=== PATIENT | female | born 1975 | race Caucasian/White ===

== ENCOUNTER 2022-02-22 15:17 | Outpatient (CLI) | payer OTHER, SELFPAY ==
--- NOTE | 2022-02-22 15:30 | CRLHL7_ITS ---
For Patients: As a result of the Century Cures Act, medical imaging exams and procedure reports are released immediately into your electronic medical record. You may view this report before your referring provider. If you have questions, please contact your health care provider. DXA BONE MINERAL DENSITY STUDY Current height (in): 66. Weight (lb): 210. Menopause age: N/A. Ethnicity: White. 1. Have you had a previous hip or vertebral fracture? No. 2. Have you had any fractures during your adult life which did not result from significant trauma (e.g., auto accident)? No. 3. Did either of your parents have a hip fracture? No. 4. Do you smoke? No. 5. Have you ever taken Glucocorticoids? No. 6. Do you have rheumatoid arthritis? No. 7. Do you have secondary osteoporosis? No. 8. Do you drink 3 or more alcoholic drinks per day? No. 9. Are you being treated for osteoporosis? No. 10. Have you ever taken any of the following medications: Actonel, Evista, Fosamax, Miacalcin, Reclast, Boniva, Forteo, HRT (i.e. estrogen/hormone therapy), Protelos, Prolia, Vitamin D, Calcium, other ??? please specify. ANSWER: Yes, vitamin D and calcium. 11. Do you have any of the following medical conditions: Anorexia or bulimia, asthma or emphysema, end stage renal disease, hyperparathyroidism, any seizure disorders, cancer, inflammatory bowel diseases, hysterectomy, other ??? please specify. ANSWER: Yes, cancer and inflammatory bowel diseases. 12. What was your maximum height (inches)? 67. 13. Do you perform weight bearing exercise regularly? Yes. 14. Do you regularly consume dairy products? Yes. 15. Do you drink caffeinated beverages? Yes. 16. At what age did your period start? 18. 17. Are you premenopausal? Yes. 18. How many full term pregnancies have you had? 0. 19. Have you ever missed your period for more than 6 months in a row (not including or menopause)? No. TECHNIQUE: Bone mineral density study was performed using the HW. FINDINGS: The results of the study expressed as bone mineral density (BMD) are as follows: Lumbar spine L1 to L4: BMD: 1.052 g/cm2. Z-score: 0.5 Neck Left: BMD: 0.663 g/cm2. Z-score: -1.3 Right: BMD: 0.624 g/cm2. Z-score: -1.6 Total Left: BMD: 0.861 g/cm2. Z-score: -0.4 Right: BMD: 0.812 g/cm2. Z-score: -0.8 IMPRESSION: Normal findings with no increased fracture risk identified. The Z-score is within the expected range for age (Z-score above -2.0). (The World Health Organization [WHO] criteria do not apply to this patient). This patient does not fit the criteria to use the database of postmenopausal women. That database is useful for perimenopausal and postmenopausal women, and men 50 years old and older. Therefore, the T-scores are not useful to evaluate this patient and only the Z-scores are used. 10-year Fracture Risk Major Osteoporotic Fracture: 3.2%. Hip Fracture: 0.5%. Reported Risk Factors: [place] () Neck BMD =0.624, BMI = 33.9 Kamala Rincon M.D. Diagnostic/Breast Radiologist [email or web address] [email or web address]/mendez simms/Dictated by: Kamala Rincon MD @ 02/23/2022 4:50:00 PM (Electronically Signed)
== END 2022-02-22 15:18 | disposition home or self-care (01) ==
LOC: RAD 15:18
PROVIDERS: PCP Family Medicine; Visit Provider Internal Medicine Hematology & Oncology
DX: C50.912 Malignant neoplasm of unspecified site of left female breast (principal)
CPT/HCPCS: 77080

== ENCOUNTER 2022-02-28 16:10 | Outpatient (CLI) | payer OTHER, SELFPAY ==
[2022-02-28 20:05] LABS: Chloride* 101 mmol/L (96-114); Potassium* 3.9 mmol/L (3.6-5.1); Sodium* 137 mmol/L (135-149)
[2022-02-28 20:08] LABS: Blood Urea Nitrogen* 18 mg/dL (5-24); Carbon Dioxide* 28 mmol/L (20-32); Creatinine* 0.7 mg/dL (0.5-1.5); Estimated Glomerular Filt Rate 109 ml/min; Glucose* 88 mg/dL (60-115)
[2022-02-28 20:09] LABS: Calcium* 9.7 mg/dL (8.4-10.6)
== END 2022-02-28 16:11 | disposition home or self-care (01) ==
LOC: NFLDREF 16:11
PROVIDERS: PCP Family Medicine; Visit Provider Family Medicine
DX: Z01.818 Encounter for other preprocedural examination (principal); R60.0 Localized edema; Z79.899 Other long term (current) drug therapy
CPT/HCPCS: 80048; 99212; 99214

== ENCOUNTER 2022-03-20 15:32 | Outpatient (CLI) | payer OTHER, SELFPAY ==
--- OUTSIDE RECORDS SUMMARY | 2022-03-20 16:06 | XMS_ITS | Encounter Summary ---
:1975 Author Organization [employer] Address [address] [place] [address] Care Team Providers Name Role Phone Sheeba Castillo APRN, CNP Primary Care Provider [phone] Reason for Visit Reason Comments Infusion Encounter Details Date Type Department Care Team Description 01/13/2022 [facility] MD Griselda colitis with rectal [id number] [address] [place] (Primary Dx) [place] [address] [phone] Social History Tobacco Use Types Packs/Day Years Used Date Smoking Tobacco: Former Cigarettes 0.3 15 Quit : 04/25/2015 Smokeless Tobacco: Never Alcohol Use Standard Drinks/Week Comments Yes 1 (1 standard drink = 0.6 oz pure alcoho l) 1-3 drinks a week Alcohol Habits Answer Date Recorded How often do you have a drink containing alcohol? Not asked How many drinks containing alcohol do you have on a Not aske d typical day when you are drinking? How often do you have six or more drinks on one Not asked occasion? 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 norethindrone-eth Take 1 Tablet by 112 Tablet 3 05/21/2020 estradiol (PIRMELLA mouth daily. ) 1-35 MG-MCG CONTINOUSLY tabletIndications: Well adult exam triamterene-hydrochlorot Take 1 Tablet by 90 Tablet 3 03/15 hiazide (MAXZIDE-25) mouth daily. 37.5-25 MG tabletIndications: Essential hypertension (HRC) busPIRone (BUSPAR) 7.5 Take 1 Tablet by 120 Tablet 3 020 03/10/2022 MG tablet mouth two times a day. OK to double dose in 2 weeks if needed. cholestyramine MIX 4 GRAMS IN 4-8 378 g 0 01/14/2020 (QUESTRAN) 4 GM/DOSE OUNCESOF FLUID AND powder DRINK ONCE DAILY. MAY INCREASE TO TWICE DAILY IF NOT IMPROVING. SEPERATE AT LEAST 2 HOURS FROM OTHER MEDICATIONS. hyoscyamine (LEVSIN/SL) Place 2 Tablets 60 Tablet 2 07/14/ 022 03/14/2022 0.125 MG sublingual under tongue every 4 tabletIndications: hours as needed for Irritable bowel Cramping. syndrome, unspecified type documented as of this encounter Progress Notes Dahiana Ornelas RN - 01/13/2022 8:30 AM CDT Dx: Ulcerative Colitis Provider: Dr Bojorquez Is this the first dose: No History of previous infusion reactions? No Premedications: None Patient arrived for Entyvio infusion. Vital signs stable. No signs of infection. Tolerated infusion well. Discharged in stable condition. Will return to clinic for next infusion as scheduled in 8 weeks. Dahiana Ornelas RN 9:23 AM 01/13/2022 documented in this encounter Plan of Treatment Upcoming Encounters Date Type Specialty Care Team Description 05/05/2022 Appointment Chemo Therapy/Infusion Services 09/15/2022 Telemedicine Gastroenterology Eusebio Haines MD [address] [place], [place] [id number] (Wo rk) documented as of this encounter Visit Diagnoses Diagnosis Other ulcerative colitis with rectal ble eding (HRC) - Primary documented in this encounter Administered Medications Inactive Administered Medications - up to 3 most recent administrations Medication Order MAR Action Action Date Dose Rate Site sodium chloride 0.9% injection Given 01/13/2022 9:18 AM CDT 10 m L 10-60 mL 10-60 mL, Intravenous, PRN BEFORE&AFTER MEDICATIONS OR LAB DRAW, Line Patency, Starting on Sun01/13/22 at 0830, Until Sun01/13/22 at 1123, For 1 day Given 01/13/2022 8:32 AM CDT 10 mL vedolizumab (Entyvio) 300 mg in sodium Started 01/13/2022 8:41 AM CDT 300 mg chloride 0.9 % 250 mL infusion 300 mg, Intravenous, Administer over 30 Minutes, ONCE, On Sun01/13/22 at 0915, For 1 dose, BIOTHERAPY - Must be given by chemotherapy/biotherapy certified documented in this encounter Care Teams Retail Account Manager Relationship Specialty Start Date End Date Sheeba Castillo, HOG GRADER, BOOM STICK WORKER PCP - General Nurse Practitioner 07/20/16 [address] [address] [place] [phone] (work) documented as of this encounter
--- OUTSIDE RECORDS SUMMARY | 2022-03-20 16:06 | XMS_ITS | Encounter Summary ---
:1975 Author Organization [employer] Address [address] [place] [address] Care Team Providers Name Role Phone Sheeba Castillo APRN, DRY MIXER Primary Care Provider [phone] Reason for Visit Reason Onset Date Comments Refill 03/14/2022 Encounter Details Date Type Department Care Team Description 03/14/2022 Refill [facility] [address] Sravan Haines MD Refill Gastroenterology [address] 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 documented in this encounter Plan of Treatment Upcoming Encounters Date Type Specialty Care Team Description 05/05/2022 Appointment Chemo Therapy/Infusion Services 09/15/2022 Telemedicine Gastroenterology Eusebio Haines MD [address] [place] [address] (Wo rk) documented as of this encounter Visit Diagnoses Diagnosis Irritable bowel syndrome, unspecified ty pe documented in this encounter Care Teams Special Education Itinerant Teacher Relationship Specialty Start Date End Date Sheeba Castillo APRN, DRY MIXER PCP - General Nurse Practitioner 07/20/16 [address] [address] [place] [phone] documented as of this encounter
--- OUTSIDE RECORDS SUMMARY | 2022-03-20 16:06 | XMS_ITS | Encounter Summary ---
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 documented in this encounter Results LABORATORY REPORT (09/30/2021) Narrative This result has an attachment that is no t available. Interface Provider DUMMY/OTHER/AR documented in this encounter Visit Diagnoses Not on filedocumented in this encounter Care Teams Lead Mason Tender Relationship Specialty Start Date End Date Sheeba Castillo, HEALTH AND PHYSICAL EDUCATION TEACHER, DIRECTOR OF RECRUITMENT AND ADMISSIONS PCP - General Nurse Practitioner 07/20/16 [address] [address] [place] [phone] documented as of this encounter
--- OUTSIDE RECORDS SUMMARY | 2022-03-20 16:06 | XMS_ITS | Encounter Summary ---
:1975 Author Organization [employer] Address [address] [place] [address] Care Team Providers Name Role Phone Sheeba Castillo APRN, CNP Primary Care Provider [phone] Reason for Visit Reason Comments Infusion Encounter Details Date Type Department Care Team Description 03/10/2022 [facility] [place] Other ulcer[facility] MD Griselda colitis with rectal [address] [address] [address] [place] (Primary Dx) [place] [phone] Social History Tobacco Use Types Packs/Day Years [...] at Date Recorded Female 05/09/2021 7: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 norethindrone-eth Take 1 Tablet by 112 Tablet 3 05/21/2020 estradiol (PIRMELLA 135) mouth daily. 1-35 MG-MCG CONTINOUSLY tabletIndications: Well adult exam triamterene-hydrochloroth Take 1 Tablet by 90 Tablet 3 02/24 iazide (MAXZIDE-25) mouth daily. 37.5-25 MG tabletIndications: Essential hypertension (HRC) vedolizumab (ENTYVIO) 300 Maintenance Entyvio 0 0 03/10/2022 MG SOLR infusions every 8 injectionIndications: weeks. 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 unspecified type documented as of this encounter Progress Notes Patricia Turcios RN - 03/10/2022 11:00 AM CDT Dx: Ulcerative rectosigmoiditis with rectal bleeding Provider: Dr. Haines Is this the first dose: no History of previous infusion reactions? no Premedications: no Patient arrived for Entyvio infusion. Vital signs stable. No signs of infection. Tolerated infusion well. Discharged in stable condition. Will return to clinic for next infusion as scheduled in 8 weeks . documented in this encounter Plan of Treatment Upcoming Encounters Date Type Specialty Care Team Description 05/05/2022 Appointment Chemo Therapy/Infusion Services 09/15/2022 Telemedicine Gastroenterology Eusebio Haines MD [address] [place], [place] [phone] (Wo rk) documented as of this encounter Visit Diagnoses Diagnosis Other ulcerative colitis with rectal ble eding (HRC) - Primary documented in this encounter Administered Medications Inactive Administered Medications - up to 3 most recent administrations Medication Order MAR Action Action Date Dose Rate Site sodium chloride 0.9% injection Given 03/10/2022 11:03 AM CDT 10 mL 10-60 mL 10-60 mL, Intravenous, PRN BEFORE&AFTER MEDICATIONS OR LAB DRAW, Line Patency, Starting on Sun03/10/22 at 1057, Until Sun03/10/22 at 1341, For 1 day vedolizumab (Entyvio) 300 mg in sodium Started 03/10/2022 11:03 AM CDT 300 mg chloride 0.9 % 250 mL infusion 300 mg, Intravenous, Administer over 30 Minutes, ONCE, On Sun03/10/22 at 1145, For 1 dose, BIOTHERAPY - Must be given by chemotherapy/biotherapy certified documented in this encounter Care Teams Digital Associate Media Director Relationship Specialty Start Date End Date Sheeba Castillo, NETWORK SECURITY ENGINEER, SERVICE STATION MANAGER PCP - General Nurse Practitioner 07/20/16 [address] [address] [place] [phone] documented as of this encounter
--- OUTSIDE RECORDS SUMMARY | 2022-03-20 16:06 | XMS_ITS | Encounter Summary ---
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 ([facility]); [place] [address] Long-term current use of peña olizumab [phone] Social History Tobacco Use Types Packs/Day Years [...] at Date Recorded Female 05/09/2021 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 due to drug therapy ([facility]) Long-term current use of vedolizumab VEDOLIZUMAB Routine 03/10/2022 10:42 Left sided colitis Resul ts for this QUANTITATION WITH AM CDT with rectal bleeding pr ocedure are in REFLEX TO ANTIBODIES ([facility]) the results Immunosuppression section. due to drug therapy ([facility]) Long-term current use of vedolizumab ALKALINE PHOSPHATASE Routine 03/10/2022 10:42 Left sided colit is Results for this ISOENZYMES AM CDT with rectal bleeding procedu re are in ([facility]) the results Immunosuppression section. due to drug therapy ([facility]) Long-term current use of vedolizumab CREATININE / GFR Routine 03/10/2022 10:42 Left sided colitis R esults for this AM CDT with rectal bleeding procedu re are in ([facility]) the results Immunosuppression section. due to drug therapy ([facility]) Long-term current use of vedolizumab HEMOGLOBIN, BLOOD Routine 03/10/2022 10:42 Left sided colitis Results for this AM CDT with rectal bleeding procedu re are in ([facility]) the results Immunosuppression section. due to drug therapy ([facility]) Long-term current use of vedolizumab WBC, BLOOD Routine 03/10/2022 10:42 Left sided colitis Resul ts for this AM CDT with rectal bleeding procedu re are in ([facility]) the results Immunosuppression section. due to drug therapy ([facility]) Long-term current use of vedolizumab C-REACTIVE PROTEIN Routine 03/10/2022 10:42 Left sided colitis Results for this AM CDT with rectal bleeding procedu re are in ([facility]) the results Immunosuppression section. due to drug therapy ([facility]) Long-term current use of vedolizumab ALT (SGPT) Routine 03/10/2022 10:42 Left sided colitis Resul ts for this AM CDT with rectal bleeding procedu re are in ([facility]) the results Immunosuppression section. due to drug therapy ([facility]) Long-term current use of vedolizumab BILIRUBIN, TOTAL Routine 03/10/2022 10:42 Left sided colitis R esults for this AM CDT with rectal bleeding procedu re are in ([facility]) the results Immunosuppression section. due to drug therapy ([facility]) Long-term current use of vedolizumab documented in this encounter Results Hepatitis A Antibody, IgG (03/10/2022 10:42 AM CDT) [facility] gist Method Time Signature Hepatitis A Negative Positive 03/10/2022 [facility] Antibody, IgG (Non (Reactive) 7:19 PM CDT LABORATORY Reactive) Specimen Anatomical Collection Method / Collection Time Recei peña Time (Source) Location / Volume Laterality Blood Venipuncture / 03/10/2022 10:42 2 Unknown AM CDT 10:42 AM CDT Narrative [facility] - 03/10/2022 7:19 P M CDT Hepatitis A IgG antibodies not detected, suggesting lack of immunity to Hepatitis A. Eusebio Haines MD LAB_1 Performing Organization Address City/State/ZIP Code Phon e Number [facility] [address] [place] [address] Creatinine / GFR (03/10/2022 10:42 AM CDT) athologist Signature Creatinine 0.70 0.55 - 03/10/2022 [facility] 1.02 mg/dL 12:18 PM CDT LABORATORY GFR, Estimated >60 >60 03/10/2022 [facility] mL/min/1.7 12:18 PM CDT LABORATORY 3m2 Specimen Anatomical Collection Method / Collection Time Recei peña Time (Source) Location / Volume Laterality Blood Venipuncture / 03/10/2022 10:42 2 Unknown AM CDT 10:42 AM CDT Eusebio Haines MD LAB_1 Performing Organization Address City/State/ZIP Code Phon e Number [facility] [address] [place] [address] (ABNORMAL) C-Reactive Protein (03/10/2022 10:42 AM CDT) athologist Signature C-Reactive 1.0 (H) 0.0 - 0.7 03/10/2022 [facility] Protein mg/dL 12:18 PM CDT LABORATORY Specimen Anatomical Collection Method / Collection Time Recei peña Time (Source) Location / Volume Laterality Blood Venipuncture / 03/10/2022 10:42 2 Unknown AM CDT 10:42 AM CDT Eusebio Haines MD LAB_1 Performing Organization Address [facility]/ZIP Code Phon e Number [facility] [address] [place], [place] [phone] WBC, Blood (03/10/2022 10:42 AM CDT) athologist Signature WBC 6.4 3.5 - 10.5 03/10/2022 [facility] x10(9)/L 10:48 AM CDT LABORATORY Specimen Anatomical Collection Method / Collection Time Recei peña Time (Source) Location / Volume Laterality Blood Venipuncture / 03/10/2022 10:42 2 Unknown AM CDT 10:42 AM CDT Eusebio Haines MD LAB_1 Performing Organization Address [facility]/ZIP Code Phon e [facility] [address] [place], [place] [phone] Hemoglobin (03/10/2022 10:42 AM CDT) athologist Signature Hemoglobin 13.9 12.0 - 15.5 03/10/2022 [facility] g/dL 10:48 AM CDT LABORATORY Specimen Anatomical Collection Method / Collection Time Recei peña Time (Source) Location / Volume Laterality Blood Venipuncture / 03/10/2022 10:42 2 Unknown AM CDT 10:42 AM CDT Eusebio Haines MD LAB_1 Performing Organization Address [facility]/ZIP Code [facility] [address] [place] [address] 5780 Vedolizumab Quantitation with Reflex to Antibodies (03/10/2022 10:42 AM CDT) athologist Signature Vedolizumab 19.7 mcg/mL 03/14/2022 [facility] Quantitation 2:15 PM CDT LAB Comment: For concentrations of vedolizumab less t palacio or equal to 15.0 mcg/mL, reflex testing for antibodi [id number] will be performed. REFERENCE VALUE------ Lower limit of quantitation = 2.0 mcg/mL ADDITIONAL INFORMATIO N This test was developed and its performa nce characteristics determined by [facility] in a manner co nsistent with CLIA requirements. This test has not been nicho ared or approved by the U.S. Food and Drug Administration. Test Performed by: [facility] [address] [place] [address] [address] Supervisor Public Health Nursing: Sergio Ashby M.D. Ph. D.; CLIA# [id number] Specimen Anatomical Collection Method / Collection Time Recei peña Time (Source) Location / Volume Laterality Blood Venipuncture / 03/10/2022 10:42 2 Unknown AM CDT 10:42 AM CDT Eusebio Haines MD LAB_1 Performing Organization Address City/[facility] Phon e Number [facility] [place] [address] Bilirubin, Total (03/10/2022 10:42 AM CDT) athologist Signature Bilirubin, 0.4 0.2 - 1.2 03/10/2022 [place] Total mg/dL 12:18 PM CDT LABORATORY Specimen Anatomical Collection Method / Collection Time Recei peña Time (Source) Location / Volume Laterality Blood Venipuncture / 03/10/2022 10:42 2 Unknown AM CDT 10:42 AM CDT Eusebio Haines MD LAB_1 Performing Organization Address City/State/ZIP Code Phon e Number [facility] [address] [place] [address] Alkaline Phosphatase Isoenzymes (03/10/2022 10:42 AM CDT) Patholo gist Method Time Signature Alkaline 70 40 - 120 03/14/2022 [facility] Phosphatase U/L 10:45 PM CDT LABORATORIES Alkaline 22 0 - 55 U/L 03/14/2022 [facility] Phosphatase, 10:45 PM CDT LABORATORIES Bone Alkaline 48 0 - 94 U/L 03/14/2022 [facility] Phosphatase, 10:45 PM CDT LABORATORIES Liver Comment: INTERPRETIVE INFORMATION: Alk-Phosphatas e Liver Calc Bone Specific Alkaline Phosphatase ([phone]) and 5'-nucleotidase ([id number]) may be useful in identifying d isorders of bone and liver, respectively. Alkaline Phosphatase, Other 0 U/L 03/14/2022 1 0:45 PM CDT [facility] Comment: Performed By: [employer] [address] [place] [address] Manager Federal: Jorge Matos MD, PhD Specimen Anatomical Collection Method / Collection Time Recei peña Time (Source) Location / Volume Laterality Blood Venipuncture / 03/10/2022 10:42 2 Unknown AM CDT 10:42 AM CDT Eusebio Haines MD LAB_1 Performing Organization Address City/[facility]/ZIP Code Phon e Number [email or web address] [address] [place], [place] [phone] ALT (SGPT) (03/10/2022 10:42 AM CDT) P athologist Signature ALT (SGPT) 21 0 - 55 U/L 03/10/2022 [facility] 12:18 PM CDT LABORATORY Specimen Anatomical Collection Method / Collection Time Recei peña Time (Source) Location / Volume Laterality Blood Venipuncture / 03/10/2022 10:42 2 Unknown AM CDT 10:42 AM CDT Eusebio Haines MD LAB_1 Performing Organization Address City/[facility]/ZIP Code Phon e Number [facility] [address] [place] [address] documented in this encounter Visit Diagnoses Diagnosis Left sided colitis with rectal bleeding ([facility]) Left sided ulcerative (chronic) colitis Immunosuppression due to drug therapy ([facility]) Long-term current use of vedolizumab documented in this encounter Care Teams Loss Prevention Lead Relationship Specialty Start Date End Date Sheeba Castillo APRN, THEATER EDUCATION TEACHER PCP - General Nurse Practitioner 07/20/16 [address] [place] [id number] documented as of this encounter
--- OUTSIDE RECORDS SUMMARY | 2022-03-20 16:06 | XMS_ITS | Clinical Summary ---
:1975 Author Organization [facility] Address [address] [place] [address] Care Team Providers Name Role Phone Sheeba Castillo APRN, CNP Primary Care Provider [phone] Source Comments You are receiving this document as you are listed as the primary care provider,follow-up provider, or the patient has been referred to you for consultation.This is in compliance with the Medicare and Medicaid EHR Incentive Program,which states Providers who transition their patient to another setting of careor provider of care or refers their patient to another provider of care shouldprovide summarycare record for each transition of care or referral. [facility] Allergies No known active allergies Medications Medication Sig Dispensed Refills Start End Status Date Date Multiple Vitamin Take 1 tablet 0 11/14/19 Active (MULTI-VITAMIN OR) by mouth daily 12 (every 24 hours). Calcium Carbonate Take by mouth. 0 02/15/20 Active Antacid 1000 MG Reported on 08/14/2016 triamterene-hydrochlo Take 1 Tablet 90 Tablet 3 03/15/20 Active rothiazide by mouth daily. 20 (MAXZIDE-25) 37.5-25 MG tabletIndications: Essential hypertension (HRC) norethindrone-eth Take 1 Tablet 112 Tablet 3 05/21/20 Active estradiol (PIRMELLA by mouth daily. 20 ) 1-35 MG-MCG CONTINOUSLY tabletIndications: Well adult exam dicyclomine (BENTYL) TAKE 1 TABLET 360 Tablet 2 06/09/20 Active 20 MG BY MOUTH 4 21 tabletIndications: TIMES DAILY Irritable bowel NEEDED syndrome, unspecified type, Chronic ulcerative proctitis with rectal bleeding (HRC) vedolizumab (ENTYVIO) Maintenance 0 03/10/20 Active 300 MG SOLR Entyvio 22 injectionIndications: infusions every Left sided colitis 8 weeks. 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 syndrome, unspecified type cholestyramine MIX 4 GRAMS IN 378 g 0 01/14/20 Discontinued (QUESTRAN) 4 GM/DOSE 4-8 OUNCESOF 20 022 powder FLUID AND DRINK ONCE DAILY. MAY INCREASE TO TWICE DAILY IF NOT IMPROVING. SEPERATE AT LEAST 2 HOURS FROM OTHER MEDICATIONS. busPIRone (BUSPAR) Take 1 Tablet 120 Tablet 3 04/08/20 Discontinued 7.5 MG tablet by mouth two 20 022 times a day. OK to double dose in 2 weeks if needed. hyoscyamine Place 2 Tablets 60 Tablet 2 07/14/19 Di scontinued (LEVSIN/SL) 0.125 MG under tongue 22 022 (*Med change OR sublingual every 4 hours same med OR tabletIndications: as needed for reorder, new Irritable bowel Cramping. dose /directions syndrome, unspecified ) type Active Problems Problem Noted Date Ulcerative rectosigmoiditis with rectal bleeding 04/30 Hematochezia 04/30/2019 Ulcerative colitis with rectal bleeding 07/25/2016 Overview: On lialda, cholestyramin, and dicyclomin e C. difficile colitis 07/25/2016 BCC (basal cell carcinoma), leg 08/11/2011 Overview: 07/09/2008: left upper thigh HTN (hypertension) 08/11/2011 Overweight 08/11/2011 Malignant melanoma of skin of trunk, except scrotum Overview: 07/09/2008, mid-abdomen ; Melanoma Trunk Resolved Problems Problem Noted Date Resolved Date JANNET (generalized anxiety disorder) 01/18/201511/17 Situational stress 01/18/2015 11/18/2015 Chronic headaches 08/11/2011 12/17/2017 Concussion 08/11/2011 12/17/2017 Overview: February 2008, thrown from horse. History of tobacco use 08/11/2011 12/17/2017 Hx of tonsillectomy 08/11/2011 12/14/2016 Female genital symptoms 12/19/2004 05/04/2006 Overview: LW Onset: ; Pelvic Pain Female Irritable bowel syndrome 11/29/2002 12/17/2017 Encounters Date Type Specialty Care Team Description 03/14/2022 Refill Gastroenterology Yancy, Refill Eusebio Lowe MD 03/10/2022 Lab Visit Laboratory Left sided coli tis with rectal bleeding (HRC); 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); Long-term curre nt use of vedolizumab 03/10/2022 Hospital Encounter Chemo Therapy/Infusion [facility] Other ulcerative Services p, colitis with re ctal [place], bleeding (HRC) (Primary MD Dx) 03/10/2022 Telemedicine Gastroenterology Yancy, Left sided colitis with rectal bleeding (HRC) (Primary Dx); Eusebio Lowe MD 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); Irritable bowel syndrome, unspecified type; Need for vaccin ation for pneumococcus; History of raquel st cancer; Long-term curre nt use of vedolizumab 01/13/2022 Hospital Encounter Chemo Therapy/Infusion [facility] Other ulcerative Services p, colitis with re ctal [place], bleeding (HRC) (Primary MD Dx) from Last 3 Months Immunizations Name Administration Dates Next Due Flu Vac Preserv Free (3+yrs) 03/04/2012, 03/10/2011, 010, 03/04/2009, 04/17/2008, 04/08/2008, 04/03/2007, 04/09/2006 H1n1 Laiv Medimmune 2-49 Yr 04/13/2009 (Intranasal) H1n1 Miv Sanofi 3+ Yr (Injected) 06/09/2013 HepB Adult (Engerix-B, 20+ yrs, 3 02/08/2006, 01/02/2002 dose series) HepB, Unspecified Formulation 08/09/2001 Influenza IIV4 (Quadrivalent) 0.5mL 03/31/2019, 03/22/2018, 03/21/2018, (91073) 03/26/2017, 03/23/2016, 03/24/2015, 03/23/2014 PCV13 (Prevnar) 05/09/2021 (Deferred: Patient Refused) PCV20 ([id number]) 03/10/2022 (Deferred: Patient Refused - Patient will complete at a later date) PPSV23 (Pneumovax) 05/09/2021 (Deferred: Patient Refused - Patient will do at another time.) TDAP (ADACEL) 07/04/2010 Td 11/30/2003 Zoster RZV (Shingrix) 03/14/2019 Family History Medical History Relation Name Comments Cancer, Prostate Maternal Grandfather Dementia Maternal Grandmother Amblyopia/Strabismus Negative Family History Blindness Negative Family History Cancer, Colon Negative Family History Cataract Negative Family History DVT/PE Negative Family History Diabetes Negative Family History Glaucoma Negative Family History Heart Disease Negative Family History Macular Degeneration Negative Family History Retinal Detachment Negative Family History Stroke Negative Family History Thyroid Disorder Negative Family History Relation Name Status Comments Father Alive Mother Alive Brother Alive Maternal Grandfather Maternal Grandmother Alive Paternal Grandfather Other biological unknown Paternal Grandmother Other biological unknown Social History Tobacco Use Types Packs/Day Years [...] at Date Recorded Female 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 Vital Signs Vital Sign Reading Time Taken Comments Blood Pressure 152/73 03/10/2022 10:51 AM CDT Pulse 90 03/10/2022 10:51 AM CDT Temperature 36.6 ??C (97.8 ??F) 03/10/2022 10:51 AM CDT Respiratory Rate 16 08/23/2020 11:41 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 Oxygen Saturation 98% 03/10/2022 10:51 AM CDT Inhaled Oxygen Concentration - - Weight 96.2 kg (212 lb) 01/13/2022 8:26 AM CDT Height 167.6 cm (5' 6) 08/23/2020 10:00 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 Body Mass Index 34.22 08/23/2020 10:00 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 Plan of Treatment Upcoming Encounters Date Type Specialty Care Team Description 05/05/2022 Appointment Chemo Therapy/Infusion Services 09/15/2022 Telemedicine Gastroenterology Eusebio Haines MD [address] [place], [place] [phone] (Wo rk) Health Maintenance Due Date Last Done Comments COVID-19 Vaccine (#1) 1975 Pneumococcal (1 - PCV) 1983 Zoster/Shingles (2 of 2) 05/09/2019 03/14/2019 Pap 12/17/2020 12/17/2017, 09/30/2014, 08/11/2011, Additional history exists Influenza (#1) 2022 03/23/2021, 03/31/2019, 03/22/2018, Additional history exists Adult Preventive Visit 03/15/2022 03/15/2020, 12/19/2018, 12/17/2017, Additional history exists Mammogram 05/25/2022 05/25/2021 (Completed), 01/15/2018 Colonoscopy 08/23/2025 08/23/2020, 09/22/2015 DTaP/Tdap/Td (3 - Tdap) 02/11/2031 02/11/2021, 07/04/2010, 11/30/2003 HepB Completed 02/08/2006, 01/02/2002, 08/09/2001 HIV Screening (Preventive Completed 03/24/2015 Services) Hep C Screening (Preventive Completed 03/24/2015 Services) HPV Vaccine Aged Out No longer eligib le based on patient 's age to complete this topic HepA Aged Out No longer eligib le based on patient 's age to complete this topic Hib Aged Out No longer eligib le based on patient 's age to complete this topic IPV (Polio) Aged Out No longer eligib le based on patient 's age to complete this topic MCV4 Aged Out No longer eligib le based on patient 's age to complete this topic Procedures Procedure Name Priority Date/Time Associated Diagnosis Comme nts HEPATITIS A ANTIBODY, Routine 03/10/2022 10:42 Left sided coli tis Results for this IGG AM CDT with rectal bleeding procedu re are in ([facility]) the results Immunosuppression section. due to drug therapy ([facility]) Long-term current use of vedolizumab CREATININE / GFR Routine 03/10/2022 10:42 Left sided colitis R esults for this AM CDT with rectal bleeding procedu re are in ([facility]) the results Immunosuppression section. due to drug therapy ([facility]) Long-term current use of vedolizumab C-REACTIVE PROTEIN Routine 03/10/2022 10:42 Left sided colitis Results for this AM CDT with rectal bleeding procedu re are in ([facility]) the results Immunosuppression section. due to drug therapy ([facility]) Long-term current use of vedolizumab WBC, BLOOD Routine 03/10/2022 10:42 Left sided colitis Resul ts for this AM CDT with rectal bleeding procedu re are in ([facility]) the results Immunosuppression section. due to drug therapy ([facility]) Long-term current use of vedolizumab HEMOGLOBIN, BLOOD Routine 03/10/2022 10:42 Left sided colitis Results for this AM CDT with rectal bleeding procedu re are in ([facility]) the results Immunosuppression section. due to drug therapy ([facility]) Long-term current use of vedolizumab VEDOLIZUMAB Routine 03/10/2022 10:42 Left sided colitis Resul ts for this QUANTITATION WITH AM CDT with rectal bleeding pr ocedure are in REFLEX TO ANTIBODIES ([facility]) the results Immunosuppression section. due to drug therapy ([facility]) Long-term current use of vedolizumab BILIRUBIN, TOTAL Routine 03/10/2022 10:42 Left sided colitis R esults for this AM CDT with rectal bleeding procedu re are in (HRC) the results Immunosuppression section. due to drug therapy ([facility]) Long-term current use of vedolizumab ALKALINE PHOSPHATASE Routine 03/10/2022 10:42 Left sided colit is Results for this ISOENZYMES AM CDT with rectal bleeding procedu re are in (HRC) the results Immunosuppression section. due to drug therapy ([facility]) Long-term current use of vedolizumab ALT (SGPT) Routine 03/10/2022 10:42 Left sided colitis Resul ts for this AM CDT with rectal bleeding procedu re are in (HRC) the results Immunosuppression section. due to drug therapy ([facility]) Long-term current use of vedolizumab from Last 3 Months Results Hepatitis A Antibody, IgG (03/10/2022 10:42 AM CDT) [facility] Method Time Signature Hepatitis A Negative Positive 03/10/2022 [facility] Antibody, IgG (Non (Reactive) 7:19 PM CDT LABORATORY Reactive) Specimen Anatomical Collection Method / Collection Time Recei peña Time (Source) Location / Volume Laterality Blood Venipuncture / 03/10/2022 10:42 2 Unknown AM CDT 10:42 AM CDT Narrative [facility] - 03/10/2022 7:19 P M CDT Hepatitis A IgG antibodies not detected, suggesting lack of immunity to Hepatitis A. Eusebio Haines MD LAB_1 Performing Organization Address City/State/ZIP Code Phon e Number [facility] [address] [place] [address] Vedolizumab Quantitation with Reflex to Antibodies (03/10/2022 10:42 AM CDT) athologist Signature Vedolizumab 19.7 mcg/mL 03/14/2022 [facility] Quantitation 2:15 PM CDT LAB Comment: For concentrations of vedolizumab less t palacio or equal to 15.0 mcg/mL, reflex testing for antibodi [id number] will be performed. REFERENCE VALUE------ Lower limit of quantitation = 2.0 mcg/mL ADDITIONAL INFORMATIO N This test was developed and its performa nce characteristics determined by [facility] in a manner co nsistent with CLIA requirements. This test has not been nicho ared or approved by the U.S. Food and Drug Administration. Test Performed by: [facility] [address] [place], [place] [address] Senior Lead Developer: Sergio Ashby M.D. Ph. D.; CLIA# [id number] Specimen Anatomical Collection Method / Collection Time Recei peña Time (Source) Location / Volume Laterality Blood Venipuncture / 03/10/2022 10:42 2 Unknown AM CDT 10:42 AM CDT Eusebio Haines MD LAB_1 Performing Organization Address City/State/ZIP Code Phon e Number [facility] [address] [address] Alkaline Phosphatase Isoenzymes (03/10/2022 10:42 AM CDT) [facility] Method Time Signature Alkaline 70 40 - 120 03/14/2022 [facility] Phosphatase U/L 10:45 PM CDT LABORATORIES Alkaline 22 0 - 55 U/L 03/14/2022 [facility] Phosphatase, 10:45 PM CDT LABORATORIES Bone Alkaline 48 0 - 94 U/L 03/14/2022 [facility] Phosphatase, 10:45 PM CDT LABORATORIES Liver Comment: INTERPRETIVE INFORMATION: Alk-Phosphatas e Liver Calc Bone Specific Alkaline Phosphatase (0070 053) and 5'-nucleotidase ([id number]) may be useful in identifying d isorders of bone and liver, respectively. Alkaline Phosphatase, Other 0 U/L 03/14/2022 1 0:45 PM CDT [facility] Comment: Performed By: [facility] [address] [place] [address] Electronic Specialist: Jorge Matos MD, PhD Specimen Anatomical Collection Method / Collection Time Recei peña Time (Source) Location / Volume Laterality Blood Venipuncture / 03/10/2022 10:42 2 Unknown AM CDT 10:42 AM CDT Eusebio Haines MD LAB_1 Performing Organization Address City/State/ZIP Code Phon e Number [place] [phone] Creatinine / GFR (03/10/2022 10:42 AM CDT) athologist Signature Creatinine 0.70 0.55 - 03/10/2022 [place] 1.02 mg/dL 12:18 PM CDT LABORATORY GFR, Estimated >60 >60 03/10/2022 [place] mL/min/1.7 12:18 PM CDT LABORATORY 3m2 Specimen Anatomical Collection Method / Collection Time Recei peña Time (Source) Location / Volume Laterality Blood Venipuncture / 03/10/2022 10:42 2 Unknown AM CDT 10:42 AM CDT Eusebio Haines MD LAB_1 Performing Organization Address City/[facility]/ZIP Code Phon e Number [facility] [address] [place], [place] [phone] Hemoglobin (03/10/2022 10:42 AM CDT) athologist Signature Hemoglobin 13.9 12.0 - 15.5 03/10/2022 [place] g/dL 10:48 AM CDT LABORATORY Specimen Anatomical Collection Method / Collection Time Recei peña Time (Source) Location / Volume Laterality Blood Venipuncture / 03/10/2022 10:42 2 Unknown AM CDT 10:42 AM CDT Eusebio Haines MD LAB_1 Performing Organization Address City/[facility]/ZIP Code Phon e Number [facility] [address] [place], [place] [phone] WBC, Blood (03/10/2022 10:42 AM CDT) athologist Signature WBC 6.4 3.5 - 10.5 03/10/2022 [place] x10(9)/L 10:48 AM CDT LABORATORY Specimen Anatomical Collection Method / Collection Time Recei peña Time (Source) Location / Volume Laterality Blood Venipuncture / 03/10/2022 10:42 2 Unknown AM CDT 10:42 AM CDT Eusebio Haines MD LAB_1 Performing Organization Address [facility]/ZIP Code Phon e Number [facility] [address] [place] [address] (ABNORMAL) C-Reactive Protein (03/10/2022 10:42 AM CDT) athologist Signature C-Reactive 1.0 (H) 0.0 - 0.7 03/10/2022 [place] Protein mg/dL 12:18 PM CDT LABORATORY Specimen Anatomical Collection Method / Collection Time Recei peña Time (Source) Location / Volume Laterality Blood Venipuncture / 03/10/2022 10:42 2 Unknown AM CDT 10:42 AM CDT Eusebio Haines MD LAB_1 Performing Organization Address [facility]/ZIP Code Phon e Number [facility] [address] [place] [address] ALT (SGPT) (03/10/2022 10:42 AM CDT) athologist Signature ALT (SGPT) 21 0 - 55 U/L 03/10/2022 [place] 12:18 PM CDT LABORATORY Specimen Anatomical Collection Method / Collection Time Recei peña Time (Source) Location / Volume Laterality Blood Venipuncture / 03/10/2022 10:42 2 Unknown AM CDT 10:42 AM CDT Eusebio Haines MD LAB_1 Performing Organization Address City/[facility]/ZIP Code Phon e Number [facility] [address] [place] [address] Bilirubin, Total (03/10/2022 10:42 AM CDT) athologist Signature Bilirubin, 0.4 0.2 - 1.2 03/10/2022 [place] Total mg/dL 12:18 PM CDT LABORATORY Specimen Anatomical Collection Method / Collection Time Recei peña Time (Source) Location / Volume Laterality Blood Venipuncture / 03/10/2022 10:42 2 Unknown AM CDT 10:42 AM CDT Eusebio Haines MD LAB_1 Performing Organization Address City/State/ZIP Code Phon e Number [facility] [address] [facility] [place] [address] from Last 3 Months Insurance Payer Benefit Plan / Subscriber ID Effective Phone Address T ype Group Dates [facility] HP COMM HP [id number] 2014-Pre C ommercial DENTAL PLAN FAMILY DENTAL sent PREFERREDONE PREFERREDONE [id number] 2020-Pre [id number] Commercial OPEN ACCESS sent [phone] [place]ERIO [phone] [id number] [place] [address] (Home) [phone] Sergio ROWAN N 0 (Work) [phone] Idania Duarte Personal/Famil Self 1975 [id number] 4 [place] [address] (Home) [phone] Sergio ROWAN N 4 (Work) [phone] Idania Duarte Personal/Famil Self 1975 [id number] 4 [place] [address] (Home) [phone] Sergio ROWAN N 0 (Work) [phone] Idania Duarte Personal/Famil Self 1975 [phone] 4 [place] [address] 2 (Home) [phone] Sergio ROWAN N 0 (Work) [phone] Advance Directives Latest Code Status on File Code Status Date Activated Date Inactivated Comments Full Code 04/30/2019 7:39 PM 05/05/2019 4:05 PM Full Code 07/25/2016 4:15 PM 07/30/2016 4:47 PM Full Code 07/12/2016 1:10 PM 07/12/2016 9:07 PM Care Teams Office Executive Relationship Specialty Start Date End Date Sheeba Castillo, LASER CUTTER, FRUIT AND VEGETABLE INSPECTOR PCP - General Nurse Practitioner 07/20/16 [id number] [address] [place] [id number]
--- OUTSIDE RECORDS SUMMARY | 2022-03-20 16:06 | XMS_ITS ---
:1975 Author Organization [facility] Address [address] [place] [address] Care Team Providers Name Role Phone Sheeba Castillo APRN, MUSIC ENGINEER Primary Care Provider [phone] Active Problems Problem Noted Date Ulcerative rectosigmoiditis with rectal bleeding 04/30 Hematochezia 04/30/2019 Ulcerative colitis with rectal bleeding 07/25/2016 Overview: On lialda, cholestyramin, and dicyclomin e C. difficile colitis 07/25/2016 BCC (basal cell carcinoma), leg 08/11/2011 Overview: 07/09/2008: left upper thigh HTN (hypertension) 08/11/2011 Overweight 08/11/2011 Malignant melanoma of skin of trunk, except scrotum Overview: 07/09/2008, mid-abdomen ; Melanoma Trunk Current Oncology Plans No current plan information found. Other Current Plans VEDOLIZUMAB (ENTYVIO) IV INFUSION(Pt no longer needing acetaminophen)Plan Start Date:09/10/2019 Plan Provider:Eusebio Haines MD Linked Problems Other ulcerative colitis with rectal ble eding (HRC) Treatment Medications ALBUterol sulfate HFAalteplase (CATHFLO ACTIVASE)diphenhydrAMINE (BENADRYL)EPINEPHrine (EPIPEN)famotidine (PEPCID)heparinmethylPREDNISolone sodium succinate (SOLU-medrol)sodium chloride 0 .9 %sodium chloride 0.9%vedolizumab (ENTYVIO) infusion Past Plans Radiation Treatments No radiation treatments are documented for this patient in [facility]. Treatments may have been administered in another system. Resolved Problems Problem Noted Date Resolved Date JANNET (generalized anxiety disorder) 01/18/201511/17 Situational stress 01/18/2015 11/18/2015 Chronic headaches 08/11/2011 12/17/2017 Concussion 08/11/2011 12/17/2017 Overview: February 2008, thrown from horse. History of tobacco use 08/11/2011 12/17/2017 Hx of tonsillectomy 08/11/2011 12/14/2016 Female genital symptoms 12/19/2004 05/04/2006 Overview: LW Onset: [id number] ; Pelvic Pain Female Irritable bowel syndrome 11/29/2002 12/17/2017
--- OUTSIDE RECORDS SUMMARY | 2022-03-20 16:06 | XMS_ITS | Encounter Summary ---
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 I am happy to hear that you made it through her breast cancer treatment with no major problems. I was even happier to hear that you are doing well with respect to your inflammatory bowel disease and its treatment. I have ordered some blood work to be done today which should be done before your vedolizumab infusion takes place. I have also ordered a vaccination with Prevnar 20. Can schedule this at your own convenience and you can do so as a walk-in nurse visit at any of various [facility] clinics. Finally, please see if you can get a copy of your recent DEXA scan sent to me so that I may reviewthe results. If you have any questions in the interim, please feel free to message me via your [employer] account. Otherwise I will have you set up for a follow-up visit in approximately 6 months. documented in this encounter Plan of Treatment Upcoming Encounters Date Type Specialty Care Team Description 05/05/2022 Appointment Chemo Therapy/Infusion Services 09/15/2022 Telemedicine Gastroenterology Eusebio Haines MD [address] [place] [address] (Wo rk) documented as of this encounter Results Hepatitis A Antibody, IgG (03/10/2022 10:42 AM CDT) [facility] Method Time Signature Hepatitis A Negative Positive 03/10/2022 [facility] Antibody, IgG (Non (Reactive) 7:19 PM CDT LABORATORY Reactive) Specimen Anatomical Collection Method / Collection Time Recei peña Time (Source) Location / Volume Laterality Blood Venipuncture / 03/10/2022 10:42 2 Unknown AM CDT 10:42 AM CDT Narrative [facility] - 03/10/2022 7:19 P M CDT Hepatitis A IgG antibodies not detected, suggesting lack of immunity to Hepatitis A. Eusebio Haines MD LAB_1 Performing Organization Address City/State/ZIP Code Phon e Number [facility] [address] [place] [address] Creatinine / GFR (03/10/2022 10:42 AM CDT) athologist Signature Creatinine 0.70 0.55 - 03/10/2022 [place] 1.02 mg/dL 12:18 PM CDT LABORATORY GFR, Estimated >60 >60 03/10/2022 [place] mL/min/1.7 12:18 PM CDT LABORATORY 3m2 Specimen Anatomical Collection Method / Collection Time Recei peña Time (Source) Location / Volume Laterality Blood Venipuncture / 03/10/2022 10:42 2 Unknown AM CDT 10:42 AM CDT Eusebio Haines MD LAB_1 Performing Organization Address [facility]/ZIP Code Phon e Number [facility] [address] [place], [place] [address] (ABNORMAL) C-Reactive Protein (03/10/2022 10:42 AM CDT) athologist Signature C-Reactive 1.0 (H) 0.0 - 0.7 03/10/2022 [place] Protein mg/dL 12:18 PM CDT LABORATORY Specimen Anatomical Collection Method / Collection Time Recei peña Time (Source) Location / Volume Laterality Blood Venipuncture / 03/10/2022 10:42 2 Unknown AM CDT 10:42 AM CDT Eusebio Haines MD LAB_1 Performing Organization Address City/[facility]/ZIP Code Phon e Number [facility] [address] [place] [address] WBC, Blood (03/10/2022 10:42 AM CDT) athologist Signature WBC 6.4 3.5 - 10.5 03/10/2022 [place] x10(9)/L 10:48 AM CDT LABORATORY Specimen Anatomical Collection Method / Collection Time Recei peña Time (Source) Location / Volume Laterality Blood Venipuncture / 03/10/2022 10:42 2 Unknown AM CDT 10:42 AM CDT Eusebio Haines MD LAB_1 Performing Organization Address [facility]/ZIP Code Phon e Arian [facility] [id number] [place] [phone] Hemoglobin (03/10/2022 10:42 AM CDT) P athologist Signature Hemoglobin 13.9 12.0 - 15.5 03/10/2022 [place] g/dL 10:48 AM CDT LABORATORY Specimen Anatomical Collection Method / Collection Time Recei peña Time (Source) Location / Volume Laterality Blood Venipuncture / 03/10/2022 10:42 2 Unknown AM CDT 10:42 AM CDT Eusebio Haines MD LAB_1 Performing Organization Address [facility] hoda Don [facility] [address] [place] [address] Vedolizumab Quantitation with Reflex to Antibodies (03/10/2022 10:42 AM CDT) P athologist Signature Vedolizumab 19.7 mcg/mL 03/14/2022 [facility] Quantitation 2:15 PM CDT LAB Comment: For concentrations of vedolizumab less t palacio or equal to 15.0 mcg/mL, reflex testing for antibodi [id number] will be performed. REFERENCE VALUE------ Lower limit of quantitation = 2.0 mcg/mL ADDITIONAL INFORMATIO N This test was developed and its performa nce characteristics determined by [facility] in a manner co nsistent with CLIA requirements. This test has not been nicho ared or approved by the U.S. Food and Drug Administration. Test Performed by: [facility] [address] [place], [place] [address] Green Marketing Analyst: Sergio Ashby M.D. Ph. D.; [facility]# [id number] Specimen Anatomical Collection Method / Collection Time Recei peña Time (Source) Location / Volume Laterality Blood Venipuncture / 03/10/2022 10:42 2 Unknown AM CDT 10:42 AM CDT Eusebio Haines MD LAB_1 Performing Organization Address City/State/[place] [address] Bilirubin, Total (03/10/2022 10:42 AM CDT) [facility] Signature Bilirubin, 0.4 0.2 - 1.2 03/10/2022 [place] Total mg/dL 12:18 PM CDT LABORATORY Specimen Anatomical Collection Method / Collection Time Recei peña Time (Source) Location / Volume Laterality Blood Venipuncture / 03/10/2022 10:42 2 Unknown AM CDT 10:42 AM CDT Eusebio Haines MD LAB_1 Performing Organization Address City/State/ZIP Code Phon e Number [facility] [address] [place] [address] Alkaline Phosphatase Isoenzymes (03/10/2022 [...] Specific Alkaline Phosphatase (0070 053) and 5'-nucleotidase (5630255) may be useful in identifying d isorders of bone and liver, respectively. Alkaline Phosphatase, Other 0 U/L 03/14/2022 1 0:45 PM CDT [facility] Comment: Performed By: [employer] [address] [place] [id number] Dry Folder Cloth: Jorge Matos MD, PhD Specimen Anatomical Collection Method / Collection Time Recei peña Time (Source) Location / Volume Laterality Blood Venipuncture / 03/10/2022 10:42 2 Unknown AM CDT 10:42 AM CDT Eusebio Haines MD LAB_1 Performing Organization Address City/State/ZIP Code Phon e Number [facility] [address] [place], [place] [phone] ALT (SGPT) (03/10/2022 10:42 AM CDT) P athologist Signature ALT (SGPT) 21 0 - 55 U/L 03/10/2022 [place] 12:18 PM CDT LABORATORY Specimen Anatomical Collection Method / Collection Time Recei peña Time (Source) Location / Volume Laterality Blood Venipuncture / 03/10/2022 10:42 2 Unknown AM CDT 10:42 AM CDT Eusebio Haines MD LAB_1 Performing Organization Address City/[facility] Code Phon e Number [facility] [address] [place] [address] documented in this encounter Visit Diagnoses Diagnosis Left sided colitis with rectal bleeding (HRC) - Primary Left sided ulcerative (chronic) colitis 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
--- OUTSIDE RECORDS SUMMARY | 2022-03-20 16:07 | XMS_ITS | Encounter Summary ---
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
--- OUTSIDE RECORDS SUMMARY | 2022-03-20 16:07 | XMS_ITS | Encounter Summary ---
:1975 Author Organization [employer] Address [address] [place] [address] Care Team Providers Name Role Phone Sheeba Castillo APRN, SIERRA Primary Care Provider [phone] Encounter Details Date Type Department Care Team Description 08/16/2020 Notes/Orders Specialty Center [address] Rasmussen MD Gastroenterology [address] Rick 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 documented as of this encounter Plan of Treatment Upcoming Encounters Date Type Specialty Care Team Description 05/05/2022 Appointment Chemo Therapy/Infusion Services 09/15/2022 Telemedicine Gastroenterology Eusebio Haines MD [address] [place], [place] [address] (Wo rk) documented as of this encounter Visit Diagnoses Not on filedocumented in this encounter Care Teams Damaged Freight Inspector Relationship Specialty Start Date End Date Sheeba Castillo, BEEF TAGGER, COMMERCIAL REAL ESTATE ASSOCIATE PCP - General Nurse Practitioner 07/20/16 [address] [place] [address] documented as of this encounter
--- OUTSIDE RECORDS SUMMARY | 2022-03-20 16:07 | XMS_ITS | Encounter Summary ---
:1975 Author Organization [facility] Address [address], [place] [address] Care Team Providers Name Role Phone Sheeba Castillo APRN, CNP Primary Care Provider [phone] Reason for Referral (Routine) - Closed Specialty Diagnoses / Procedures Referred By Contact Refer red To Contact Diagnoses Left sided colitis with rectal bleeding (HRC) Eusebio Haines MD Procedures Endoscopy, colon, diagnostic [address] [place], [place] [address] Referral ID Status Reason Start Date Expiration Date Visits Requ ested Visits Authorized [id number] Closed 08/02/2020 11/01/2021 1 1 D TRUCK OPERATOR Reason for Visit (Routine) - Closed Specialty Diagnoses / Procedures Referred By Contact Refer red To Contact Diagnoses Left sided colitis with rectal bleeding (HRC) Eusebio Haines MD Procedures Endoscopy, colon, diagnostic [address] [place], [place] [address] Referral ID Status Reason Start Date Expiration Date Visits Requ ested Visits Authorized [id number] Closed 08/02/2020 11/01/2021 1 1 Encounter Details Date Type Department Care Team Description 08/23/2020 [facility] Мария Left sided colitis Encounter Gastroenterology MD Chrissy with rectal Endoscopy Procedures [address] bleeding (HRC) [address] [employer] [facility] [address] [place] [address] [place] [address] Social History Tobacco Use Types Packs/Day Years [...] at Date Recorded Female 05/09/2021 7:19 PM SOUND TRUCK OPERATOR documented as of this encounter Last Filed Vital Signs Vital Sign Reading Time Taken Comments Blood Pressure 109/71 08/23/2020 11:41 AM SOUND TRUCK OPERATOR Pulse 86 08/23/2020 11:41 AM SOUND TRUCK OPERATOR Temperature - - Respiratory Rate 16 08/23/2020 11:41 AM SOUND TRUCK OPERATOR Oxygen Saturation 100% 08/23/2020 11:41 AM SOUND TRUCK OPERATOR Inhaled Oxygen Concentration - - Weight 84.8 kg (187 lb) 08/23/2020 10:00 AM SOUND TRUCK OPERATOR Height 167.6 cm (5' 6) 08/23/2020 10:00 AM SOUND TRUCK OPERATOR Body Mass Index 30.18 08/23/2020 10:00 AM SOUND TRUCK OPERATOR documented in this encounter Medications at Time of Discharge Medication Sig Dispensed Refills Start Date End Date Calcium Carbonate Take by mouth. 0 02/15/2012 Antacid 1000 MG Reported on 08/14/2016 Multiple Vitamin Take 1 tablet by 0 11/14/2011 (MULTI-VITAMIN OR) mouth daily (every 24 hours). norethindrone-eth Take 1 Tablet by 112 Tablet 3 05/21/2020 estradiol (PIRMELLA mouth daily. 1) 1-35 MG-MCG CONTINOUSLY tabletIndications: Well adult exam triamterene-hydrochlorot Take 1 Tablet by 90 Tablet 3 03/15 hiazide (MAXZIDE-25) mouth daily. 37.5-25 MG tabletIndications: Essential hypertension (HRC) budesonide (UCERIS) 9 MG Take 1 Tablet by 90 Tablet 0 01/1101/28/2021 24 hr tabletIndications: mouth daily. Left sided colitis with rectal bleeding (HRC) busPIRone (BUSPAR) 7.5 Take 1 Tablet [...] AT LEAST 2 HOURS FROM OTHER MEDICATIONS. dicyclomine (BENTYL) 20 Take 1 Tablet by 360 Tablet 3 201906/09/2021 MG tabletIndications: mouth 4 times daily abdominal cramping as needed. Indications: abdominal cramping hyoscyamine (LEVSIN/SL) DISSOLVE 1 TABLET 30 Tablet 0 01/1301/28/2021 0.125 MG sublingual UNDER THE TONGUE tablet EVERY 4 HOURS NEEDED FOR CRAMPING. Phentermine HCl 37.5 MG Take 1 Capsule by 90 Capsule 1 03/1501/28/2021 capsuleIndications: mouth daily. Overweight (HRC) documented as of this encounter Progress Notes Marni Smith RN - 08/23/2020 10:30 AM CST Vitals charted per department protocol.Medications given intermittently for discomfort.Patient tolerated procedure. D TRUCK OPERATOR Lenora Schaffer RN - 08/23/2020 10:30 AM CST Patient alert, oriented. Denies pain at this time. Tolerating liquids. Discussed discharge teaching.Patient/family given handouts. Verbalized understanding. D TRUCK OPERATOR documented in this encounter Procedure Notes Мария Rasmussen MD - 08/23/2020 10:45 AM CST Patient Name: Idania Duarte Procedure Date: 08/23/2020 10:45 AM Date of : 1975 Admit Type: Outpatient Age: 45 Gender: Female Note Status: Finalized Attending MD: Мария Rasmussen MD Procedure: Colonoscopy Indications: Disease activity assessment of left-sided chronic ulcerative colitis, Assess therapeutic response to therapy of left-sided chronic ulcerative colitis Providers: Мария Rasmussen MD, Marni Trivedi MD: Eusebio Haines Medicines: Midazolam 6 mg IV, Fentanyl 125 micrograms IV Complications: No immediate complications. Procedure: Pre-Anesthesia Assessment: - The following statement was reviewed with the patient during pre-procedure scheduling, and was again reviewed with the patient by the endoscopist immediately prior to the procedure during the consent process, with an emphasis on the first sentence: With any procedure there is a small but inherent risk of acquiring infection including, but not limited to, the novel coronavirus (COVID-19). Please be aware that there is a potential for your procedure or surgery to be postponed, or possibly canceled, if you should test positive for COVID-19. There is also a potential for postponement of your procedure if there is a significant reduction in resources required to safely perform your procedure. After I obtained informed consent, the scope was passed under direct vision. Throughout the procedure, the patient's blood pressure, pulse, and oxygen saturations were monitored continuously. The [id number] was introduced through the anus and advanced to 10 cm into the ileum. The colonoscopy was performed without difficulty. The patient tolerated the procedure well. The quality of the bowel preparation was good. Findings: The perianal and digital rectal examinations were normal. The terminal ileum appeared normal. A 1 mm polyp was found in the transverse colon. The polyp was sessile. The polyp was removed with a cold snare. Resection and retrieval were complete. Scattered pseudopolyps were found in the sigmoid colon, in the descending colon, in the transverse colon, at the hepatic flexure and in the ascending colon. Normal mucosa was found in the entire colon. Four biopsies were taken every 10 cm with a cold forceps from the entire colon for ulcerative colitis surveillance. These biopsy specimens from the cecum, ascending colon, transverse colon, descending colon and rectosigmoid colon were sent to Pathology. The exam was otherwise without abnormality on direct and retroflexion views. Moderate Sedation: Moderate (conscious) sedation was administered by the endoscopy nurse and supervised by the endoscopist. The following parameters were monitored: oxygen saturation, heart rate, blood pressure, and response to care. Total physician intraservice time was 25 minutes. Impression: - The examined portion of the ileum was normal. - One 1 mm polyp in the transverse colon, removed with a cold snare. Resected and retrieved. - Pseudopolyps in the sigmoid colon, in the descending colon, in the transverse colon, at the hepatic flexure and in the ascending colon. - Normal mucosa in the entire examined colon. Biopsied. - The examination was otherwise normal on direct and retroflexion views. Recommendation: - Discharge patient to home. - Await pathology results. - Repeat colonoscopy for surveillance based on pathology results. - Return to GI clinic. Procedure Code(s): --- Professional --- 39298, Colonoscopy, flexible; with removal of tumor(s), polyp(s), or other lesion(s) by snare technique 94940, 59, Colonoscopy, flexible; with biopsy, single or multiple 64261, Moderate sedation; each additional 15 minutes intraservice time G0500, Moderate sedation services provided by the same physician or other qualified health foster care worker performing a gastrointestinal endoscopic service that sedation supports, requiring the presence of an independent trained observer to assist in the monitoring of the patient's level of consciousness and physiological status; initial 15 minutes of intra-service time; patient age 5 years or older (additional time may be reported with 48612, as appropriate) Diagnosis Code(s): --- Professional --- K63.5, Polyp of colon K51.40, Inflammatory polyps of colon without complications K51.50, Left sided colitis without complications CPT copyright 2019 [employer]. All rights reserved. The codes documented in this report are preliminary and upon sweatband maker review may be revised to meet current compliance requirements. Мария Rasmussen MD 08/23/2020 11:18:43 AM This document has been electronically signed. Number of Addenda: 0 Note Initiated On: 08/23/2020 10:45 AM Endoscopy Report D TRUCK OPERATOR documented in this encounter Plan of Treatment Upcoming Encounters Date Type Specialty Care Team Description 05/05/2022 Appointment Chemo Therapy/Infusion Services 09/15/2022 Telemedicine Gastroenterology Eusebio Haines MD [address] [place] [address] (Wo rk) documented as of this encounter Procedures Procedure Name Priority Date/Time Associated Diagnosis Comme nts SURGICAL PATHOLOGY, Routine 08/23/2020 11:16 AM Left sided col itis Results for this GI SOUND TRUCK OPERATOR with rectal bleeding procedu re are in (HR) the results section. ENDOSCOPY, COLON, Routine 08/23/2020 10:45 AM Left sided colit is Results for this SCREENING/DIAGNOSTI SOUND TRUCK OPERATOR with rectal bleeding procedure are in C ([facility]) the results section. TEST STAT 08/23/2020 9:48 AM Results for this (URINE) SOUND TRUCK OPERATOR procedure are i n the results section. documented in this encounter Results Surgical Path - GI (08/23/2020 11:16 AM SOUND TRUCK OPERATOR) Component Value Ref Test Analysis Performed At [facility] gist Range Method Time Signature Case Report Surgical Pathology ?Case: [id number] ? 08/25/2020 [facility] Authorizing Provider: ??Мария Mathias MD ? Collected: ? 08/23/2020 1116 ? 1:39 PM LABORAT OR Ordering Location: ? [facility] ? Received: ?08/23/2020 1239 ? SOUND TRUCK OPERATOR ? Gastroenterology Endoscopy ? Procedures ? Pathologist: ? Soupir, Emir P, MD ? Specimens: ?? A) - Colon, ce cum, ??ascending ? B) - [place] n, transverse ? C) - [place] n, descending ? D) - [place] n, rectosigmoid ? E) - [place] n, transverse ? FINAL A. Colon, cecum and ascending, biopsy: 0 08/25/2020 [facility] Electronically DIAGNOSIS No diagnostic abnormality 1:39 PM LABO RATORY signed by SOUND TRUCK OPERATOR Rhonda Guerin P, B. Colon, transverse, polypectomy: on 08/25/2020 Hyperplastic polyp, multiple levels examined at 1:38 PM C. Colon, descending, biopsy: No diagnostic abnormality D. Colon, rectosigmoid, biopsy: Colonic mucosa with mild arc hitectural changes suggestive of chronic quiescent colitis E. Colon, transverse, biopsy: No diagnostic abnormality, multiple levels examined Comment: The patient's histo ry of ulcerative colitis is noted. There is no evidence for active colitis, granulomas, or dysplasia. Clinical Polyp 08/25/2020 [facility] Information Hx Ulcerative Colitis 1:39 PM [facility] SOUND TRUCK OPERATOR Microscopic Microscopic 08/25/2020 [facility] Description examination is 1:39 PM LABORATORY performed. SOUND TRUCK OPERATOR Gross A: 08/25/2020 [facility] Description The specimen is received in formalin and labeled with the patient's name and Colon, cecum, ascending. The specimen consists of multiple dawn-white irregular soft tissue fragments, averaging 0.2 cm. The 1:39 PM LABORATORY specimen is filtered and entirely submitted in one cassette . SOUND TRUCK OPERATOR B: The specimen is received in formalin and labeled with the patient's name and Colon, transverse. The specimen consists of a 0.3 cm dawn-white irregular shaped soft tissue fragment. The specimen is filtered and entirely submitted in one cassette. C: The specimen is received in formalin and labeled with the patient's name and Colon, descending. The specimen consists of multiple dawn-white irregular soft tissue fragments, ranging from 0.1 cm to 0.2 cm. The specimen is filtered and entirely submitted in one c assette. D: The specimen is received in formalin and labeled with the patient's name and Colon, rectosigmoid. The specimen consists of multiple dawn-white irregular soft tissue fragments, averaging 0.2 cm. The spe cimen is filtered and entirely submitted in one cassette. E: The specimen is received in formalin and labeled with the patient's name and Colon, transverse. The specimen consists of multiple dawn-white irregular soft tissue fragments, averaging 0.1 cm. The speci men is filtered and entirely submitted in one cassette. AW Embedded 08/25/2020 [facility] Images 1:39 PM LABORATORY SOUND TRUCK OPERATOR Specimen Anatomical Location Collection Method Collection Time Received Time (Source) / Laterality / Volume Tissue COLON STRUCTURE / 08/23/2020 11:16 2020 Unknown AM SOUND TRUCK OPERATOR 12:39 PM SOUND TRUCK OPERATOR Tissue specimen COLON STRUCTURE / 08/23/2020 11:16 06/2020 (specimen) Unknown AM SOUND TRUCK OPERATOR 12:39 PM SOUND TRUCK OPERATOR Tissue specimen COLON STRUCTURE / 08/23/2020 11:16 06/2020 (specimen) Unknown AM SOUND TRUCK OPERATOR 12:39 PM SOUND TRUCK OPERATOR Tissue specimen RECTOSIGMOID 08/23/2020 11:16 08/24/19 (specimen) STRUCTURE / Unknown AM SOUND TRUCK OPERATOR 12:39 PM SOUND TRUCK OPERATOR Tissue specimen COLON STRUCTURE / 08/23/2020 11:16 06/2020 (specimen) Unknown AM SOUND TRUCK OPERATOR 12:39 PM SOUND TRUCK OPERATOR Мария Rasmussen MD LAB PATHOLOGY Performing Organization Address City/State/ZIP Code Phon e Number [facility] [address] [place] [address] Endoscopy, colon, diagnostic (08/23/2020 10:45 AM SOUND TRUCK OPERATOR) Specimen (Source) Anatomical Collection Method Collection Time Re ceived Time Location / / Volume Laterality 08/23/2020 10:45 AM SOUND TRUCK OPERATOR Narrative [facility] ([facility]) - 08/23/2020 10:45 AM SOUND TRUCK OPERATOR Patient Name: Idania Duarte Procedure Date: 08/23/2020 10:45 AM Date of : 1975 Admit Type: Outpatient Age: 45 Gender: Female Note Status: Finalized Attending MD: Мария Rasmussen MD Procedure: ? Colonoscopy Indications: ? Disease activit y assessment of ? left-side d chronic ulcerative ? colitis, Assess therapeutic response ? to therap y of left-sided chronic ? ulcerativ e colitis Providers: ? Мария Lao, , Marni Smith Referring : ?Eusebio Haines Medicines: ? Midazolam 6 mg IV, Fentanyl 125 ? microgram s IV Complications: ? No immediate com plications. Procedure: ? Pre-Anesthesia Assessment: ? - The fol lowing statement was ? reviewed with the patient during ? pre-proce dure scheduling, and was ? again rev iewed with the patient by ? the endos copist immediately prior to ? the proce dure during the consent ? process, with an emphasis on the ? first sen tence: With any procedure ? there is a small but inherent risk of ? acquiring infection including, but ? not limit ed to, the novel coronavirus ? (COVID-19 ). Please be aware that ? there is a potential for your ? procedure or surgery to be postponed, ? or possib ly canceled, if you should ? test posi tive for COVID-19. There is ? also a po tential for postponement of ? your proc edure if there is a ? significa nt reduction in resources ? required to safely perform your ? procedure . ? After I o btained informed consent, ? the scope was passed under direct ? vision. T hroughout the procedure, the ? patient's blood pressure, pulse, and ? oxygen sa turations were monitored ? continuou sly. The CF-[id number] was ? introduce d through the anus and ? advanced to 10 cm into the ileum. The ? colonosco py was performed without ? difficult y. The patient tolerated the ? procedure well. The quality of the ? bowel pre paration was good. Findings: ? The perianal and digital rectal e xaminations were ? normal. ? The terminal ileum appeared arlene l. ? A 1 mm polyp was found in the tra nsverse colon. The ? polyp was sessile. The polyp was removed with a cold ? snare. Resection and retrieval we re complete. ? Scattered pseudopolyps were found in the sigmoid ? colon, in the descending colon, i n the transverse ? colon, at the hepatic flexure and in the ascending ? colon. ? Normal mucosa was found in the en tire colon. Four ? biopsies were taken every 10 cm w ith a cold forceps ? from the entire colon for ulcerat gregory colitis ? surveillance. These biopsy specim ens from the cecum, ? ascending colon, transverse colon , descending colon ? and rectosigmoid colon were sent to Pathology. ? The exam was otherwise without ab normality on direct ? and retroflexion views. Moderate Sedation: ? Moderate (conscious) sedation was administered by the ? endoscopy nurse and supervised by the endoscopist. ? The following parameters were mon itored: oxygen ? saturation, heart rate, blood pre ssure, and response ? to care. Total physician intraser vice time was 25 ? minutes. Impression: ?- The examined portion of the ileum ? was arlene l. ? - One 1 m m polyp in the transverse ? colon, re moved with a cold snare. ? Resected and retrieved. ? - Pseudop olyps in the sigmoid colon, ? in the de scending colon, in the ? transvers e colon, at the hepatic ? flexure a nd in the ascending colon. ? - Normal mucosa in the entire ? examined colon. Biopsied. ? - The exa mination was otherwise ? normal on direct and retroflexion ? views. Recommendation: ?- Discharge nick ent to home. ? - Await p athology results. ? - Repeat colonoscopy for surveillance ? based on pathology results. ? - Return to GI clinic. Procedure Code(s): ?? --- Professional - -- ? 05015, Co lonoscopy, flexible; with ? removal o f tumor(s), polyp(s), or ? other les ion(s) by snare technique ? 82489, 59 , Colonoscopy, flexible; ? with biop sy, single or multiple ? 80037, Mo derate sedation; each ? additiona l 15 minutes intraservice ? time ? G0500, Mo derate sedation services ? provided by the same physician or ? other [facility] ? professio nal performing a ? gastroint estinal endoscopic service ? that radha tion supports, requiring the ? presence of an independent trained ? observer to assist in the monitoring ? of the mark vasquez's level of ? conscious ness and physiological ? status; i nitial 15 minutes of ? intra-ser vice time; patient age 5 ? years or older (additional time may ? be report ed with 06934, as ? appropria te) Diagnosis Code(s): ?? --- Professional - -- ? K63.5, Po lyp of colon ? K51.40, I nflammatory polyps of colon ? without c omplications ? K51.50, L eft sided colitis without ? complicat ions CPT copyright 2019 [employer]. All rights reserved. The codes documented in this report are preliminary and upon sweatband maker review may be revised to meet current compliance requirements. Мария Rasmussen MD 08/23/2020 11:18:43 AM This document has been electronically si gned. Number of Addenda: 0 Note Initiated On: 08/23/2020 10:45 AM ? Endoscopy Report Procedure Note Provider, MD Angelica - 08/23/2020Form atting of this note might be different from the original. Patient Name: Idania Duarte Procedure Date: 08/23/2020 10:45 AM Date of : 1975 Admit Type: Outpatient Age: 45 Gender: Female Note Status: Finalized Attending MD: Мария Rasmussen MD Procedure: Colonoscopy Indications: Disease activity assessment of left-sided chronic ulcerative colitis, Assess therapeutic response to therapy of left-sided chronic ulcerative colitis Providers: Мария Rasmussen MD, Marni Smith Referring MD: Eusebio Haines Medicines: Midazolam 6 mg IV, Fentanyl 1 25 micrograms IV Complications: No immediate complication s. Procedure: Pre-Anesthesia Assessment: - The following statement was reviewed with the patient during pre-procedure scheduling, and was again reviewed with the patient by the endoscopist immediately prior to the procedure during the consent process, with an emphasis on the first sentence: With any procedure there is a small but inherent risk of acquiring infection including, but not limited to, the novel coronavirus (COVID-19). Please be aware that there is a potential for your procedure or surgery to be postponed, or possibly canceled, if you should test positive for COVID-19. There is also a potential for postponement of your procedure if there is a significant reduction in resources required to safely perform your procedure. After I obtained informed consent, the scope was passed under direct vision. Throughout the procedure, the patient's blood pressure, pulse, and oxygen saturations were monitored continuously. The [id number] was introduced through the anus and advanced to 10 cm into the ileum. The colonoscopy was performed without difficulty. The patient tolerated the procedure well. The quality of the bowel preparation was good. Findings: The perianal and digital rectal examina tions were normal. The terminal ileum appeared normal. A 1 mm polyp was found in the transvers e colon. The polyp was sessile. The polyp was remove d with a cold snare. Resection and retrieval were com plete. Scattered pseudopolyps were found in th e sigmoid colon, in the descending colon, in the transverse colon, at the hepatic flexure and in th e ascending colon. Normal mucosa was found in the entire c olon. Four biopsies were taken every 10 cm with a cold forceps from the entire colon for ulcerative co litis surveillance. These biopsy specimens fr om the cecum, ascending colon, transverse colon, desc ending colon and rectosigmoid colon were sent to [facility]. The exam was otherwise without abnormal ity on direct and retroflexion views. Moderate Sedation: Moderate (conscious) sedation was admin istered by the endoscopy nurse and supervised by the e ndoscopist. The following parameters were monitored : oxygen saturation, heart rate, blood pressure, and response to care. Total physician intraservice t deandra was 25 minutes. Impression: - The examined portion of th e ileum was normal. - One 1 mm polyp in the transverse colon, removed with a cold snare. Resected and retrieved. - Pseudopolyps in the sigmoid colon, in the descending colon, in the transverse colon, at the hepatic flexure and in the ascending colon. - Normal mucosa in the entire examined colon. Biopsied. - The examination was otherwise normal on direct and retroflexion views. Recommendation: - Discharge patient [facility]. - Await pathology results. - Repeat colonoscopy for surveillance based on pathology results. - Return to GI clinic. Procedure Code(s): --- Professional --- 13545, Colonoscopy, flexible; with removal of tumor(s), polyp(s), or other lesion(s) by snare technique 41010, 59, Colonoscopy, flexible; with biopsy, single or multiple 82911, Moderate sedation; each additional 15 minutes intraservice time G0500, Moderate sedation services provided by the same physician or other qualified health foster care worker performing a gastrointestinal endoscopic service that sedation supports, requiring the presence of an independent trained observer to assist in the monitoring of the patient's level of consciousness and physiological status; initial 15 minutes of intra-service time; patient age 5 years or older (additional time may be reported with 16781, as appropriate) Diagnosis Code(s): --- Professional --- K63.5, Polyp of colon K51.40, Inflammatory polyps of colon without complications K51.50, Left sided colitis without complications CPT copyright 2019 [employer]. All rights reserved. The codes documented in this report are preliminary and upon sweatband maker review may be revised to meet current compliance requirements. Мария Rasmussen MD 08/23/2020 11:18:43 AM This document has been electronically si gned. Number of Addenda: 0 Note Initiated On: 08/23/2020 10:45 AM Endoscopy Report Eusebio Haines MD PN GI PROCEDURE ORDERABLES Performing Organization Address City/State/ZIP Code Phon e Number [facility] ([facility]) [facility] ([facility]) [place], [place] Test Screen Urine (08/23/2020 9:48 AM SOUND TRUCK OPERATOR) athologist Signature HCG, Urine Negative Negative 08/23/2020 [facility] 9:55 AM SOUND TRUCK OPERATOR LABORATORY Specimen Anatomical Collection Method Collection Time Receive d Time (Source) Location / / Volume Laterality Urine Non-blood 08/23/2020 9:48 AM 9:48 Collection / SOUND TRUCK OPERATOR AM SOUND TRUCK OPERATOR Unknown Мария Rasmussen MD LAB_1 Performing Organization Address City/State/ZIP Code Phon e Number [facility] [place] [address] [place] [address] documented in this encounter Visit Diagnoses Diagnosis Left sided colitis with rectal bleeding (HRC) Left sided ulcerative (chronic) colitis documented in this encounter Administered Medications Inactive Administered Medications - up to 3 most recent administrations Medication Order MAR Action Action Date Dose Rate Site fentaNYL (SUBLIMAZE) injection Given 08/23/2020 11:19 AM SOUND TRUCK OPERATOR 125 mcg 25-100 mcg 25-100 mcg, Intravenous, PRN, Pain, moderate sedation, Starting on Sun08/23/20 at 0912, Until Sun09/13/20 at 0203, Administer in 25-100 mcg increments as directed by endoscopy procedure MD up to a total of 200 mcg. midazolam (VERSED) injection 0.5-2 mg Given 08/23/2020 11:20 AM SOUND TRUCK OPERATOR 6 mg 0.5-2 mg, Intravenous, PRN, Sedation, Starting on Sun08/23/20 at 0912, Until Sun09/13/20 at 0203, Administer in 0.5 - 2 mg increments as directed by endoscopy procedure MD up to a total of 6 mg sodium chloride 0.9% injection 10-60 mL Given 08/23/2020 11:20 AM SOUND TRUCK OPERATOR 10 mL 10-60 mL, Intravenous, PRN, Line Patency, Other, Line Care, Starting on Sun08/23/20 at 0912, Until Sun09/13/20 at 0203, For an INT flush, flush with at least 10 mL. For PICC (including Power Injectable PICC), flush with 10 mL. For Port-a-Cath, flush with a minimum of 10 mL. For Castellon, flush with a minimum of 10 mL. For jugular, subclavian, femoral central lines, flush with a minimum of 10 mL. For additional information about flushing processes, reference the Vascular Access Device Users Guide. documented in this encounter Care Teams Windrower Operator Relationship Specialty Start Date End Date Sheeba Castillo APRN, MEMORIAL MARKER DESIGNER PCP - General Nurse Practitioner 07/20/16 [address] [place] [address] documented as of this encounter
--- OUTSIDE RECORDS SUMMARY | 2022-03-20 16:07 | XMS_ITS | Encounter Summary ---
:1975 Author Organization [employer] Address [address] [address] Care Team Providers Name Role Phone Sheeba Castillo APRN, ELECTRIC SWITCH TESTER Primary Care Provider [phone] Encounter Details Date Type Department Care Team Description 01/28/2021 Notes/Orders Specialty Center Sravan Turner MD Gastroenterology [address] [place] [address] [place] [address] [phone] Social History Tobacco Use Types Packs/Day Years [...] at Date Recorded Female 05/09/2021 7:19 PM MASTER STEAM YACHT documented as of this encounter Plan of Treatment Upcoming Encounters Date Type Specialty Care Team Description 05/05/2022 Appointment Chemo Therapy/Infusion Services 09/15/2022 Telemedicine Gastroenterology Eusebio Haines MD [address] [place] [address] (Wo rk) documented as of this encounter Visit Diagnoses Not on filedocumented in this encounter Care Teams Pathology Secretary Relationship Specialty Start Date End Date Sheeba Castillo APRN, ELECTRIC SWITCH TESTER PCP - General Nurse Practitioner 07/20/16 [address] [place] [phone] documented as of this encounter
--- OUTSIDE RECORDS SUMMARY | 2022-03-20 16:07 | XMS_ITS | Encounter Summary ---
:1975 Author Organization [employer] Address [address] [place] [address] Care Team Providers Name Role Phone Sheeba Castillo APRN, RN CLINICAL RESEARCH Primary Care Provider [phone] Reason for Visit Reason Comments Medication Questions Entered automatically based on patient selection in [place]. Encounter Details Date Type Department Care Team Description 04/08/2020 E-Visit Idania Triana, Dx: An xiety (Primary Dx) Medicine [address] [facility] [address] [place] [address] [place] [phone] Social History Tobacco Use Types Packs/Day Years [...] at Date Recorded Female 05/09/2021 7:19 PM ACCOUNT RESOLUTION EXPERT documented as of this encounter Nursing Notes Idania Andrade MD - 04/08/2020 1:08 PM CDT We decided to start BuSpar after discussion of options through the E visit. Reviewed possible side effects and length to action. Follow-up 1 month if needed. Key Onofre, RN - 04/08/2020 10:51 AM CDT Clinician Action: New Order Medication Clinician Next Step: Reply in MyChart Specific Request(s): 1. Pt is requesting to start medication for anxiety. Please advise if appointment needed to discuss further. documented in this encounter Plan of Treatment Upcoming Encounters Date Type Specialty Care Team Description 05/05/2022 Appointment Chemo Therapy/Infusion Services 09/15/2022 Telemedicine Gastroenterology Eusebio Haines MD [address] [place], [place] [phone] (Wo rk) documented as of this encounter Visit Diagnoses Diagnosis Anxiety (HRC) - Primary Anxiety state, unspecified documented in this encounter Care Teams Family Reunification Specialist Relationship Specialty Start Date End Date Sheeba Castillo, TELEGRAPH EQUIPMENT MAINTAINER, RN CLINICAL RESEARCH PCP - General Nurse Practitioner 07/20/[address] [place] [id number] documented as of this encounter
--- OUTSIDE RECORDS SUMMARY | 2022-03-20 16:07 | XMS_ITS | Encounter Summary ---
:1975 Author Organization [employer] Address [address] [place] [address] Care Team Providers Name Role Phone Sheeba Castillo APRN, CNP Primary Care Provider [phone] Reason for Visit Reason Comments Infusion Infusion Therapy Plan (Routine) - Authorized Specialty Diagnoses / Procedures Referred By Contact Refer red To Contact Diagnoses Other ulcerative colitis with rectal bleeding (HRC) Eusebio Haines MD [id number] [address] [facility] [address] [place], [place] [address] [place] [address] Phone: Fax: Referral ID Status Reason Start Date Expiration Date Visits V isits Requested Authorized [id number] Authorized 09/04/2019 07/24/[phone] Encounter Details Date Type Department Care Team Description 03/17/2020 Hospital Encounter [facility] Other ulcerative [address] [facility] [place] [address] bleeding (HRC) (Primary [phone] Dx) Social History Tobacco Use Types Packs/Day Years [...] at Date Recorded Female 05/09/2021 7:19 PM SKIN THERAPIST documented as of this encounter Last Filed Vital Signs Vital Sign Reading Time Taken Comments Blood Pressure 139/80 03/17/2020 2:33 PM CDT Pulse 110 03/17/2020 2:33 PM CDT Temperature 36.7 ??C (98 ??F) 03/17/2020 2:33 PM CDT Respiratory Rate - - Oxygen Saturation 99% 03/17/2020 2:33 PM CDT Inhaled Oxygen Concentration - - Weight - - Height - - Body Mass Index - - documented in this encounter Medications at Time of Discharge Medication Sig Dispensed Refills Start Date End Date Calcium Carbonate Take by mouth. 0 02/15/2012 Antacid 1000 MG Reported on 08/14/2016 Multiple Vitamin Take 1 tablet by 0 11/14/2011 (MULTI-VITAMIN OR) mouth daily (every 24 hours). triamterene-hydrochlorot Take 1 Tablet by 90 Tablet 3 03/15 hiazide (MAXZIDE-25) mouth daily. 37.5-25 MG tabletIndications: Essential hypertension (HRC) budesonide (UCERIS) 9 MG Take 1 Tablet by 90 Tablet 0 01/1101/28/2021 24 hr tabletIndications: mouth daily. Left sided colitis with rectal bleeding (HRC) cholestyramine MIX 4 GRAMS IN 4-8 378 g 0 01/14/2020 (QUESTRAN) 4 GM/DOSE OUNCESOF FLUID AND powder DRINK ONCE DAILY. MAY INCREASE TO TWICE DAILY IF NOT IMPROVING. SEPERATE AT LEAST 2 HOURS FROM OTHER MEDICATIONS. dicyclomine (BENTYL) 20 TAKE 1 TABLET BY 360 Tablet 3 201704/21/2020 MG tablet MOUTH 4 TIMES DAILY NEEDED hyoscyamine (LEVSIN/SL) DISSOLVE 1 TABLET 30 Tablet 0 01/1301/28/2021 0.125 MG sublingual UNDER THE TONGUE tablet EVERY 4 HOURS NEEDED FOR CRAMPING. norethindrone-eth Take 1 Tablet by 112 Tablet 0 03/03/2020 1 07/19/2019 estradiol (PIRMELLA mouth daily. ) 1-35 MG-MCG CONTINOUSLY tabletIndications: Well adult exam Phentermine HCl 37.5 MG Take 1 Capsule by 90 Capsule 1 03/1501/28/2021 capsuleIndications: mouth daily. Overweight (HRC) documented as of this encounter Progress Notes Nadia Thompson RN - 03/17/2020 2:30 PM CDT Pt here for entyvio infusion. No complaints. Pt states she feels like the medications are finally starting to work for her. Tolerated well with no issues. Discharged in stable condition. Will return 05/12/20 for next appt. documented in this encounter Plan of Treatment Upcoming Encounters Date Type Specialty Care Team Description 05/05/2022 Appointment Chemo Therapy/Infusion Services 09/15/2022 Telemedicine Gastroenterology Eusebio Haines MD [address] [place], [place] [id number] (Wo rk) documented as of this encounter Visit Diagnoses Diagnosis Other ulcerative colitis with rectal ble eding (HRC) - Primary documented in this encounter Administered Medications Inactive Administered Medications - up to 3 most recent administrations Medication Order MAR Action Action Date Dose Rate Site acetaminophen (TYLENOL) tablet 975 Given 03/17/2020 2:40 PM CDT 975 mg mg 975 mg, Oral, ONCE, On Sun03/17/20 at 1445, For 1 dose sodium chloride 0.9% injection 10-60 mL Given 03/17/2020 3:15 PM CDT 10 mL 10-60 mL, Intravenous, PRN BEFORE&AFTER MEDICATIONS OR LAB DRAW, Line Patency, Starting on Sun03/17/20 at 1515, Until Sun03/17/20 at 1720, For 1 day vedolizumab (Entyvio) 300 mg in sodium Started 03/17/2020 2:40 PM CDT 300 mg chloride 0.9 % 250 mL infusion 300 mg, Intravenous, Administer over 30 Minutes, ONCE, On Sun03/17/20 at 1515, For 1 dose, BIOTHERAPY - Must be given by chemotherapy/biotherapy certified documented in this encounter Care Teams Flare Stitcher Relationship Specialty Start Date End Date Sheeba Castillo, RAIL OPERATIONS CONTROLLER, STUDENT DEVELOPMENT SPECIALIST PCP - General Nurse Practitioner 07/20/16 [address] [place] [id number] documented as of this encounter
--- OUTSIDE RECORDS SUMMARY | 2022-03-20 16:07 | XMS_ITS | Encounter Summary ---
:1975 Author Organization [employer] Address [address] [place] [address] Care Team Providers Name Role Phone Sheeba Castillo APRN, SIERRA Primary Care Provider [phone] Encounter Details Date Type Department Care Team Description 08/20/2020 Lab Visit [facility] Laboratory Preop examination [address] [place] [address] Social History Tobacco Use Types Packs/Day Years [...] at Date Recorded Female 05/09/2021 7:19 PM SENIOR COMPUTER SPECIALIST documented as of this encounter Plan of Treatment Upcoming Encounters Date Type Specialty Care Team Description 05/05/2022 Appointment Chemo Therapy/Infusion Services 09/15/2022 Telemedicine Gastroenterology Eusebio Haines MD [address] [place] [address] (Wo rk) documented as of this encounter Procedures Procedure Name Priority Date/Time Associated Diagnosis Comme nts 2019 NOVEL Routine 08/20/2020 4:06 PM Preop examination Resu lts for this CORONAVIRUS SENIOR COMPUTER SPECIALIST procedure are i n the results section. documented in this encounter Results Asymptomatic - 2019 Novel Coronavirus (COVID-19) (08/20/2020 4:06 PM SENIOR COMPUTER SPECIALIST) [facility] Method Time Signature COVID-19 Not Not 08/21/2020 [facility] Interpretation Detected Detected 5:42 AM CENTRAL LAB SENIOR COMPUTER SPECIALIST Specimen Anatomical Collection Method Collection Time Receive d Time (Source) Location / / Volume Laterality Swab (Source Non-blood 08/20/2020 4:06 PM 4:13 Required) Collection / SENIOR COMPUTER SPECIALIST PM SENIOR COMPUTER SPECIALIST Unknown Narrative [facility] - 08/21/2020 5:42 AM SENIOR COMPUTER SPECIALIST Test performed by Termite Technician Mediated Amplification. TMA has been shown to be equivalent to commercial real-time PCR t ests. This test has been authorized by the FDA under an Emergency Use Authorization (EUA) for use by authorized laboratories. Prakash Fitzgerald MD LAB_1 Performing Organization Address City/State/ZIP Code Phon e Number [facility] [address] [place] [phone] documented in this encounter Visit Diagnoses Diagnosis Preop examination Preoperative examination, unspecified documented in this encounter Care Teams Passenger Service Agent Relationship Specialty Start Date End Date Sheeba Castillo, RUDY, STEAM BOX OPERATOR PCP - General Nurse Practitioner 07/20/16 [address] [place] [address] documented as of this encounter
--- OUTSIDE RECORDS SUMMARY | 2022-03-20 16:07 | XMS_ITS | Encounter Summary ---
:1975 Author Organization [employer] Address [address] [place] [address] Care Team Providers Name Role Phone Sheeba Castillo APRN, SIERRA Primary Care Provider [phone] Reason for Visit Reason Comments Infusion Encounter Details Date Type Department Care Team Description 03/11/2021 Hospital Encounter [facility] Other ulcerative [address] [facility] [place] [address] bleeding (HRC) (Primary [phone] Dx) Social History Tobacco Use Types Packs/Day [...] at Date Recorded Female 05/09/2021 7:19 PM HOSPITAL SUPERINTENDENT documented as of this encounter Last Filed Vital Signs Vital Sign Reading Time Taken Comments Blood Pressure 142/83 03/11/2021 2:55 PM CDT Pulse 95 03/11/2021 2:55 PM CDT Temperature 36.7 ??C (98 ??F) 03/11/2021 2:55 PM CDT Respiratory Rate - - Oxygen Saturation 98% 03/11/2021 2:55 PM CDT Inhaled Oxygen Concentration - - [...] abdominal cramping as needed. Indications: abdominal cramping documented as of this encounter Progress Notes Dahiana Ornelas RN - 03/11/2021 3:00 PM CDT DX: Ulcerative colitis with rectal bleeding (C) Dr Haines Is this the first dose: No History of previous infusion reactions? No Premedications: None Patient arrived for Entyvio infusion. Vital signs stable. No signs of infection. Tolerated infusion well. Discharged in stable condition. Will return to clinic for next infusion as scheduled on 05/06/2021. Dahiana Ornelas RN 3:47 PM 03/11/2021 documented in this encounter Plan of Treatment Upcoming Encounters Date Type Specialty Care Team Description 05/05/2022 Appointment Chemo Therapy/Infusion Services 09/15/2022 Telemedicine Gastroenterology Eusebio Haines MD [address] [place] [address] (Wo rk) documented as of this encounter Visit Diagnoses Diagnosis Other ulcerative colitis with rectal ble eding (HRC) - Primary documented in this encounter Administered Medications Inactive Administered Medications - up to 3 most recent administrations Medication Order MAR Action Action Date Dose Rate Site sodium chloride 0.9% injection Given 03/11/2021 3:42 PM CDT 10 m L 10-60 mL 10-60 mL, Intravenous, PRN BEFORE&AFTER MEDICATIONS OR LAB DRAW, Line Patency, Starting on Sun03/11/21 at 1452, Until Sun03/11/21 at 1748, For 1 day vedolizumab (Entyvio) 300 mg in sodium Started 03/11/2021 3:03 PM CDT 300 mg chloride 0.9 % 250 mL infusion 300 mg, Intravenous, Administer over 30 Minutes, ONCE, On Sun03/11/21 at 1545, For 1 dose, BIOTHERAPY - Must be given by chemotherapy/biotherapy certified documented in this encounter Care Teams Loom Setter Relationship Specialty Start Date End Date Sheeba Castillo, STERILE INSTRUMENT TECHNICIAN, HAND TUBE WINDER PCP - General Nurse Practitioner 07/20/16 [address] [place] [address] documented as of this encounter
--- OUTSIDE RECORDS SUMMARY | 2022-03-20 16:07 | XMS_ITS | Encounter Summary ---
:1975 Author Organization [employer] Address [address] [place] [address] Care Team Providers Name Role Phone Sheeba Castillo APRN, CNP Primary Care Provider [phone] Reason for Referral (Routine) - Closed Specialty Diagnoses / Procedures Referred By Contact Refer red To Contact Diagnoses Left sided colitis with rectal bleeding (HRC) Eusebio Haines MD Procedures Endoscopy, colon, diagnostic [address] [place], [place] [address] Referral ID Status Reason Start Date Expiration Date Visits Requ ested Visits Authorized [id number] Closed 08/02/2020 11/01/2021 1 1 TRUCKER Reason for Visit Reason Comments Colonoscopy Encounter Details Date Type Department Care Team Description 07/30/2020 Telephone Specialty Center Sravan Turner MD Colonoscopy Gastroenterology [address] [place] [address] [place] [address] [phone] Social History Tobacco Use Types Packs/Day Years [...] Date Recorded Female 05/09/2021 7:19 PM HAND TRUCKER documented as of this encounter Nursing Notes Eusebio Haines MD - 08/02/2020 3:30 PM CST Yes, patient is indeed due for a colonoscopy but this is more for diagnostic purposes and a follow-up on her known ulcerative colitis after a significant change in treatment. Order for colonoscopy withmoderate sedation entered and signed in [facility]. Please arrange for the patient have this scheduled as she has requested. Please also confirm that she is okay proceeding with moderate sedation with the colonoscopy being done by me; I am fairly certain we can keep her comfortable but if she refuses moderate sedation, we can instead schedule it to be done with propofol sedation. Please let me know so thatI can discontinue the colonoscopy with moderate sedation and place a new order for colonoscopy with propofol sedation. Thanks. TRUCKER documented in this encounter Plan of Treatment Upcoming Encounters Date Type Specialty Care Team Description 05/05/2022 Appointment Chemo Therapy/Infusion Services 09/15/2022 Telemedicine Gastroenterology Eusebio Haines MD [address] [place] [address] (Wo rk) documented as of this encounter Results Endoscopy, colon, diagnostic (08/23/2020 10:45 AM HAND TRUCKER) Specimen (Source) Anatomical Collection Method Collection Time Re ceived Time Location / / Volume Laterality 08/23/2020 10:45 AM HAND TRUCKER Narrative [facility] ([facility]) - 08/23/2020 10:45 AM HAND TRUCKER Patient Name: Idnaia Duarte Procedure Date: 08/23/2020 10:45 AM Date of : 1975 Admit Type: Outpatient Age: 45 Gender: Female Note Status: Finalized Attending MD: Мария Rasmussen MD Procedure: ? Colonoscopy Indications: ? Disease activit y assessment of ? left-side d chronic ulcerative ? colitis, Assess therapeutic response ? to therap y of left-sided chronic ? ulcerativ e colitis Providers: ? Мария Lao MD, Marni Smith Referring MD: ?Eusebio Haines Medicines: ? Midazolam 6 mg [...] with an emphasis on the ? first trey owen: With any procedure ? there is a [...] turations were monitored ? continuou sly. The CF-[id number] was ? introduce d through the anus [...] Code(s): ?? --- Professional - -- ? 54299, Co lonoscopy, flexible; with ? removal o f tumor(s), polyp(s), or ? other les ion(s) by snare technique ? 13369, 59 , Colonoscopy, flexible; ? with biop sy, single or multiple ? 12829, Mo derate sedation; each ? additiona l 15 minutes intraservice ? time ? G0500, Mo derate sedation services ? provided by the same physician or ? other [facility] health care ? professio nal performing a [...] time may ? [place] [address], as ? appropria te) Diagnosis Code(s): ?? --- Professional - -- ? K63.5, Po lyp of colon ? K51.40, I nflammatory polyps of colon ? without c omplications ? K51.50, L eft sided colitis without ? complicat ions CPT copyright 2019 [employer]. All rights reserved. The codes documented in this report are preliminary and upon coordinator of online programs review may be revised to meet current [...] and oxygen saturations were monitored continuously. The CF-[id number] was introduced through the anus and advanced [...] colon and rectosigmoid colon were sent to [facility]. The exam was otherwise without abnormal ity [...] retroflexion views. Recommendation: - Discharge patient to [facility]. - Await pathology results. - Repeat colonoscopy for surveillance based on pathology results. - Return to GI clinic. Procedure Code(s): --- Professional --- 67274, Colonoscopy, flexible; with removal of tumor(s), polyp(s), or other lesion(s) by snare technique 42496, 59, Colonoscopy, flexible; with biopsy, single or multiple 58054, Moderate sedation; each additional 15 minutes intraservice time G0500, Moderate sedation services provided by the same physician or other qualified health assurance services manager health care performing a gastrointestinal endoscopic service that sedation supports, requiring the presence of an independent trained observer to assist in the monitoring of the patient's level of consciousness and physiological status; initial 15 minutes of intra-service time; patient age 5 years or older (additional time may be reported with 13630, as appropriate) Diagnosis Code(s): --- Professional --- K63.5, Polyp of colon K51.40, Inflammatory polyps of colon without complications K51.50, Left sided colitis without complications CPT copyright 2019 [employer]. All rights reserved. The codes documented in this report are preliminary and upon coordinator of online programs review may be revised to meet current compliance requirements. Мария Rasmussen MD 08/23/2020 11:18:43 AM This document has been electronically si gned. Number of Addenda: 0 Note Initiated On: 08/23/2020 10:45 AM Endoscopy Report Eusebio Haines MD PN GI PROCEDURE ORDERABLES Performing Organization Address City/State/ZIP Code Phon e Number [facility]) [facility] ([facility] [place], [place] documented in this encounter Visit Diagnoses Diagnosis Left sided colitis with rectal bleeding (HRC) - Primary Left sided ulcerative (chronic) colitis Left sided colitis with rectal bleeding (HRC) Left sided ulcerative (chronic) colitis documented in this encounter Care Teams Plate Furnace Operator Relationship Specialty Start Date End Date Sheeba Castillo, RUDY, CABLE PLACER PCP - General Nurse Practitioner 07/20/16 [address] [place] [address] documented as of this encounter
--- OUTSIDE RECORDS SUMMARY | 2022-03-20 16:07 | XMS_ITS | Encounter Summary ---
:1975 Author Organization [employer] Address [address] [place] [address] Care Team Providers Name Role Phone Sheeba Castillo APRN, CNP Primary Care Provider [phone] Reason for Visit Reason Comments COLITIS, ULCERATIVE Infusion Therapy Plan (Routine) - Authorized Specialty Diagnoses / Procedures Referred By Contact Refer red To Contact Diagnoses Other ulcerative colitis with rectal bleeding (HRC) Eusebio Haines MD [id number] [address] [facility] [address] [place], [place] [address] [place] [address] Phone: Fax: Referral ID Status Reason Start Date Expiration Date Visits V isits Requested Authorized [id number] Authorized 09/04/2019 07/24/2022 [id number] Encounter Details Date Type Department Care Team Description 09/16/2020 Hospital Encounter [facility] Other ulcerative [address] [facility] [place] [address] bleeding (HRC) (Primary [phone] Dx) Social History Tobacco Use Types Packs/Day [...] at Date Recorded Female 05/09/2021 7:19 PM WHEAT AND OATS FLAKE MILLER documented as of this encounter Last Filed Vital Signs Vital Sign Reading Time Taken Comments Blood Pressure 156/90 09/16/2020 1:56 PM CDT Pulse 93 09/16/2020 1:56 PM CDT Temperature 36.8 ??C (98.2 ??F) 09/16/2020 1:56 PM CDT Respiratory Rate - - Oxygen Saturation 100% 09/16/2020 1:56 PM CDT Inhaled Oxygen Concentration - - [...] documented as of this encounter Progress Notes Siria Zuniga RN - 09/16/2020 2:00 PM CDT Pt here for Entyvio infusion. States she is feeling good. Tylenol given as premed. Tolerated infusion without incidence. Discharged in stable condition. documented in this encounter Plan of Treatment Upcoming Encounters Date Type Specialty Care Team Description 05/05/2022 Appointment Chemo Therapy/Infusion Services 09/15/2022 Telemedicine Gastroenterology Eusebio Haines MD [address] [place], [place] [address] (Wo rk) documented as of this encounter Visit Diagnoses Diagnosis Other ulcerative colitis with rectal ble eding (HRC) - Primary documented in this encounter Administered Medications Inactive Administered Medications - up to 3 most recent administrations Medication Order MAR Action Action Date Dose Rate Site acetaminophen (TYLENOL) tablet 975 Given 09/16/2020 2:22 PM CDT 975 mg mg 975 mg, Oral, ONCE, On Tamela 09/16/20 at 1430, For 1 dose sodium chloride 0.9% injection 10-60 mL Given 09/16/2020 3:05 PM CDT 10 mL 10-60 mL, Intravenous, PRN BEFORE&AFTER MEDICATIONS OR LAB DRAW, Line Patency, Starting on Tamela 09/16/20 at 1402, Until Tamela 09/16/20 at 1712, For 1 day Given 09/16/2020 2:25 PM CDT 10 mL vedolizumab (Entyvio) 300 mg in sodium Started 09/16/2020 2:22 PM CDT 300 mg chloride 0.9 % 250 mL infusion 300 mg, Intravenous, Administer over 30 Minutes, ONCE, On Tamela 09/16/20 at 1500, For 1 dose, BIOTHERAPY - Must be given by chemotherapy/biotherapy certified documented in this encounter Care Teams Transportation Design Engineer Relationship Specialty Start Date End Date Sheeba Castillo APRN, APARTMENT MAINTENANCE PCP - General Nurse Practitioner 07/20/[address] [place] [address] documented as of this encounter
--- OUTSIDE RECORDS SUMMARY | 2022-03-20 16:07 | XMS_ITS | Encounter Summary ---
:1975 Author Organization [employer] Address [address] [place] [address] Care Team Providers Name Role Phone Sheeba Castillo APRN, CNP Primary Care Provider Reason for Visit Reason Comments Infusion Infusion Therapy Plan (Routine) - Authorized Specialty Diagnoses / Procedures Referred By Contact Refer red To Contact Diagnoses Other ulcerative colitis with rectal bleeding (HRC) Eusebio Haines MD [facility] [address] [facility] [address] 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 no Premedications: no Patient arrived for Entyvio infusion. Vital signs stable. No signs of infection. Tolerated infusion well. Discharged in stable condition. Will return to clinic for next infusion as scheduled in 8 weeks. documented in this encounter Plan of Treatment Upcoming Encounters Date Type Specialty Care Team Description 05/05/2022 Appointment Chemo Therapy/Infusion Services 09/15/2022 Telemedicine Gastroenterology Eusebio Haines MD [address] [place] [place] [address] (Wo rk) documented as of this encounter Visit Diagnoses Diagnosis Other ulcerative colitis with rectal ble eding (HR) - Primary documented in this encounter Administered Medications Inactive Administered Medications - up to 3 most recent administrations Medication Order MAR Action Action Date Dose Rate Site sodium chloride 0.9% injection Given 11/12/2020 3:05 PM CDT 20 m L 10-60 mL 10-60 mL, Intravenous, PRN BEFORE&AFTER MEDICATIONS OR LAB DRAW, Line Patency, Starting on Sun11/12/20 at 1414, Until Sun11/12/20 at 1712, For 1 day vedolizumab (Entyvio) 300 mg in sodium Started 11/12/2020 2:31 PM CDT 300 mg chloride 0.9 % 250 mL infusion 300 mg, Intravenous, Administer over 30 Minutes, ONCE, On Sun11/12/20 at 1500, For 1 dose, BIOTHERAPY - Must be given by chemotherapy/biotherapy certified documented in this encounter Care Teams Timber Faller Relationship Specialty Start Date End Date Sheeba Castillo, RUDY, KISS MACHINE OPERATOR PCP - General Nurse Practitioner 07/20/16 [address] [place] [place] [address] documented as of this encounter
--- OUTSIDE RECORDS SUMMARY | 2022-03-20 16:07 | XMS_ITS | Encounter Summary ---
:1975 Author Organization [employer] Address [address] [place] [address] Care Team Providers Name Role Phone Sheeba Castillo APRN, SIERRA Primary Care Provider [phone] Encounter Details Date Type Department Care Team Description 03/02/2021 Orders Only Initial Department Provider, Interface, [facility] DONAL MONTES MD [place], [place] [address] Interface provider [phone] [place] [id number] Social History Tobacco Use Types Packs/Day Years [...] at Date Recorded Female 05/09/2021 7:19 PM AIRPORT RAMP SUPERVISOR documented as of this encounter Plan of Treatment Upcoming Encounters Date Type Specialty Care Team Description 05/05/2022 Appointment Chemo Therapy/Infusion Services 09/15/2022 Telemedicine Gastroenterology Eusebio Haines MD [address] [place] [place] [address] (Wo rk) documented as of this encounter Procedures Procedure Name Priority Date/Time Associated Diagnosis Comme nts LABORATORY REPORT 03/02/2021 Results fo r this procedure are in the resu lts section. documented in this encounter Results LABORATORY REPORT (03/02/2021) Narrative This result has an attachment that is no t available. Interface Provider MD DUMMY/OTHER/AR documented in this encounter Visit Diagnoses Not on filedocumented in this encounter Care Teams Shoe Cleaner Relationship Specialty Start Date End Date Sheeba Castillo, LOW EMISSION AUTOMOBILE DESIGNER, STITCHER FEEDER PCP - General Nurse Practitioner 07/20/16 [address] [place] [address] documented as of this encounter
--- OUTSIDE RECORDS SUMMARY | 2022-03-20 16:07 | XMS_ITS | Encounter Summary ---
:1975 Author Organization [employer] Address [address], [place] [address] Care Team Providers Name Role Phone Sheeba Castillo APRN, SIERRA Primary Care Provider [phone] Reason for Visit Reason Comments Appt. Needed Encounter Details Date Type Department Care Team Description 03/26/2020 Telephone [facility] 650Sravan Gaxiola MD Appt. Needed Gastroenterology [address] [place] [address] [place] [address] [phone] Social History Tobacco Use Types Packs/Day Years [...] at Date Recorded Female 05/09/2021 7:19 PM DEVELOPMENT EDITOR documented as of this encounter Nursing Notes Conchis Campbell Y - 03/26/2020 11:46 AM CDT Gi dept called patient lvm to sched video visit Per Dr. Haines documented in this encounter Plan of Treatment Upcoming Encounters Date Type Specialty Care Team Description 05/05/2022 Appointment Chemo Therapy/Infusion Services 09/15/2022 Telemedicine Gastroenterology Eusebio Haines MD [address] [place], [place] [address] (Wo rk) documented as of this encounter Visit Diagnoses Not on filedocumented in this encounter Care Teams Systems Software Engineer Relationship Specialty Start Date End Date Sheeba Castillo, CIGAR MACHINE FEEDER, NUISANCE WILDLIFE CONTROL OPERATOR PCP - General Nurse Practitioner 07/20/16 [address] [place] [address] documented as of this encounter
--- OUTSIDE RECORDS SUMMARY | 2022-03-20 16:07 | XMS_ITS | Encounter Summary ---
:1975 Author Organization [employer] Address [address] [place] [address] Care Team Providers Name Role Phone Sheeba Castillo APRN, BACK CLOSER Primary Care Provider [phone] Reason for Visit Reason Comments UPDATE Encounter Details Date Type Department Care Team Description 09/07/2021 Telephone [facility] [address] Sravan Haines MD UPDATE Gastroenterology [address] 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 Report includes a complete blood count and comprehensive metabolic panel completed on September 05, 2021. Results show normal white blood cell count, normal platelet count, mild anemia with a hemoglobin of 11.8 grams/deciliter with normal MCV and slightly elevated RDW. Liver function tests all within normal limits. Electrolytes and renal function also within normal limits. I tried to call the patient's vedolizumab infusion nurse Oralia at [facility] twice today at the number provided ([phone]) but no answer and no ability to leave a voicemail. From my standpoint, it appears okay for the patient to resume her vedolizumab infusions for ongoing treatment of her inflammatory bowel disease. I will message the patient and let her know as well, viaher [employer] account. Eusebio Haines MD - 09/08/2021 5:08 PM CDT Sent a message to the patient via her [employer] account acknowledging the message from Oralia regarding the end of the patient's chemotherapy for breast cancer. Multiple questions posed to the patient in my [employer] message to her. Awaiting to hear her response. Dayana Jauregui RN - 09/07/2021 11:39 AM CDT Oralia calling from [facility] where pt has been being treated for breast cancer. States pt got her last dose of chemo yesterday, she will be referred for radiation now, she did ok but did have some colitis that was managed with steroids. States pt has been off her Enteyvio for her chemo treatment, pt would like to know when she can restart the Entyvio infusions? Pt has a port in that was used for chemo. Pt is wondering if she keep the port and use that for her infusions, or if she should just get it removed? Not sure what our infusiondept policy is. Any questions you can call Oralia at [phone]. Further recommendations? documented in this encounter Plan of Treatment Upcoming Encounters Date Type Specialty Care Team Description 05/05/2022 Appointment Chemo Therapy/Infusion Services 09/15/2022 Telemedicine Gastroenterology Eusebio Haines MD [address] [place] [address] (Wo rk) documented as of this encounter Visit Diagnoses Not on filedocumented in this encounter Care Teams Concrete Mixing Truck Driver Relationship Specialty Start Date End Date Sheeba Castillo APRN, BACK CLOSER PCP - General Nurse Practitioner 07/20/16 [address] [place] [id number] documented as of this encounter
--- OUTSIDE RECORDS SUMMARY | 2022-03-20 16:07 | XMS_ITS | Encounter Summary ---
:1975 Author Organization [employer] Address [address] [place] [address] Care Team Providers Name Role Phone Sheeba Castillo APRN, SIERRA Primary Care Provider [phone] Reason for Visit Reason Comments LAB RESULTS Encounter Details Date Type Department Care Team Description 02/15/2021 Telephone [facility]ty Center 650Sravan Gaxiola MD LAB RESULTS Gastroenterology [address] [place] [address] [place], [place] [address] [phone] Social History Tobacco Use Types Packs/Day Years [...] at Date Recorded Female 05/09/2021 7:19 PM BARRELHEAD INSPECTOR documented as of this encounter Nursing Notes Lucy Hunt RN - 02/23/2021 11:22 AM CDT Noted Eusebio Haines MD - 02/23/2021 10:38 AM CDT Outside facility blood test results reviewed. Letter summarizing results, sent to patient. Paperworkwith blood test results submitted to my office out box to be uploaded into [employer] section if notalready done. Thanks. Charles Duran RN - 02/15/2021 2:22 PM CDT Fax from [facility] with lab results. Placed in Dr Haines's mailbox. documented in this encounter Plan of Treatment Upcoming Encounters Date Type Specialty Care Team Description 05/05/2022 Appointment Chemo Therapy/Infusion Services 09/15/2022 Telemedicine Gastroenterology Eusebio Haines MD [address] [place], [place] [address] (Wo rk) documented as of this encounter Visit Diagnoses Not on filedocumented in this encounter Care Teams Tank Builder And Erector Relationship Specialty Start Date End Date Sheeba Castillo, TELECOMMUNICATIONS FIELD TECHNICIAN, TRACK REPAIR LABORER PCP - General Nurse Practitioner 07/20/16 [address] [place] [id number] documented as of this encounter
--- OUTSIDE RECORDS SUMMARY | 2022-03-20 16:07 | XMS_ITS | Encounter Summary ---
:1975 Author Organization [employer] Address [address] [place] [address] Care Team Providers Name Role Phone Sheeba Castillo APRN, CNP Primary Care Provider [phone] Reason for Visit Reason Comments Medication Questions Entyvio Encounter Details Date Type Department Care Team Description 06/28/2021 Telephone Specialty Center 6500 Sravan Haines MD Medication Questions Gastroenterology [address] (Entyvio) [address] [place] [address] [phone] Social History Tobacco Use Types Packs/Day Years [...] at Date Recorded Female 05/09/2021 7:19 PM COIL MACHINE OPERATOR documented as of this encounter Nursing Notes Eusebio Haines MD - 06/29/2021 1:45 PM CST Patient's case discussed with several colleagues in our department and consensus opinion from me andthem was that it would be prudent to have the patient hold her Entyvio infusions while she is undergoing chemotherapy. I called the patient at her listed number but there was no answer; the call went to her voicemail which identified her as the optometrist/practice owner and I left a detailed message explaining that we will recommend to her infusion center personnel that Entyvio be held while she is undergoing chemotherapy for breast cancer. Explained her that if she develops any flares while vedolizumab is held that she can contact me for substitute treatments while Entyvio infusions are held. I called Oralai from [facility] to discuss these recommendations with her. I reach her today and recommended that Entyvio infusions be held during chemotherapy. I also asked her the estimated length of chemotherapy to which she responded approximately 12-15 weeks. Chemotherapy regimen will include docetaxel (Taxotere) and cyclophosphamide (Cytoxan). These medications in and of themselves are immune suppressing causing cytopenias and therefore this is all the more reason to have the patient hold Entyvio during her chemotherapy regimen. Finally, I asked Oralia to message us back in 12-15 weeks once the pa pedro has completed her chemotherapy regimen and based on the patient's clinical course during treatment, we can then consider when to resume vedolizumab infusions. MACHINE OPERATOR Fidel Song RN - 06/28/2021 3:01 PM CST Nurse Oralia from [facility] calling with update. Pt recently found out she has breast cancer. Gets entyvio every 8 weeks. Set to start chemotherapy next week. Oncologist Dr. Sahu wanting to know if ptshould be off entyvio due to chemo. Next entyvio scheduled 07/07/21. Please advise. Nurse Barton [phone]. MACHINE OPERATOR documented in this encounter Plan of Treatment Upcoming Encounters Date Type Specialty Care Team Description 05/05/2022 Appointment Chemo Therapy/Infusion Services 09/15/2022 Telemedicine Gastroenterology Eusebio Haines MD [address] [place], [place] [address] (Wo rk) documented as of this encounter Visit Diagnoses Not on filedocumented in this encounter Care Teams Utility Worker Production Relationship Specialty Start Date End Date Sheeba Castillo, PARKING METER INSTALLER, LEATHER FITTER PCP - General Nurse Practitioner 07/20/16 [address] [place] [address] documented as of this encounter
--- OUTSIDE RECORDS SUMMARY | 2022-03-20 16:07 | XMS_ITS | Encounter Summary ---
:1975 Author Organization [employer] Address [address], [place] [address] Care Team Providers Name Role Phone Sheeba Castillo APRN, SIERRA Primary Care Provider [phone] Encounter Details Date Type Department Care Team Description 09/13/2020 Notes/Orders [facility] [place], [facility] [address] [place] [address] Social History Tobacco Use Types Packs/Day Years [...] at Date Recorded Female 05/09/2021 7:19 PM BEAMER HELPER documented as of this encounter Progress Notes [place] [facility] - 09/13/2020 1:26 PM CDT Iadnia Duarte???s Entyvio/vedolizumab (Dr. Haines) Therapy Plan orders are about to or have . Please review, select, and sign the orders in this plan as appropriate if you would like your patient to continue with their infusion therapy. Thank you, [place] RPh 09/13/2020 documented in this encounter Plan of Treatment Upcoming Encounters Date Type Specialty Care Team Description 05/05/2022 Appointment Chemo Therapy/Infusion Services 09/15/2022 Telemedicine Gastroenterology Eusebio Haines MD [address] [place], [place] [address] (Wo rk) documented as of this encounter Visit Diagnoses Not on filedocumented in this encounter Care Teams Flame Cutting Machine Operator Helper Relationship Specialty Start Date End Date Sheeba Castillo APRN, EMPLOYMENT LAW SPECIALIST PCP - General Nurse Practitioner 07/20/[address] [place] [address] documented as of this encounter
--- OUTSIDE RECORDS SUMMARY | 2022-03-20 16:07 | XMS_ITS | Encounter Summary ---
:1975 Author Organization [employer] Address [address] [place] [address] Care Team Providers Name Role Phone Sheeba Castillo APRN, CNP Primary Care Provider [phone] Reason for Visit Reason Comments Infusion Infusion Therapy Plan (Routine) - Authorized Specialty Diagnoses / Procedures Referred By Contact Refer red To Contact Diagnoses Other ulcerative colitis with rectal bleeding (HRC) Eusebio Haines MD [facility] [address] [facility] [address] [place], [place] [address] [place] [address] Phone: Fax: Referral ID Status Reason Start Date Expiration Date Visits V isits Requested Authorized [id number] Authorized 09/04/2019 07/24/2022 999 [id number] Encounter Details Date Type Department Care Team Description 05/12/2021 Hospital Encounter [facility] Ulcerative colitis with rect al bleeding, unspecified location (HRC) (Primary Dx); [address] Other ulcerative colitis wit h rectal bleeding (HRC) [place] [address] Social History Tobacco Use Types Packs/Day Years [...] at Date Recorded Female 05/09/2021 7:19 PM PHARMACY OPERATIONS SPECIALIST documented as of this encounter Last Filed Vital Signs Vital Sign Reading Time Taken Comments Blood Pressure 148/82 05/12/2021 2:22 PM PHARMACY OPERATIONS SPECIALIST Pulse 78 05/12/2021 2:22 PM PHARMACY OPERATIONS SPECIALIST Temperature 36.8 ??C (98.3 ??F) 05/12/2021 2:22 PM PHARMACY OPERATIONS SPECIALIST Respiratory Rate - - Oxygen Saturation 99% 05/12/2021 2:22 PM PHARMACY OPERATIONS SPECIALIST Inhaled Oxygen Concentration - - Weight 92.9 kg (204 lb 12.8 oz) 05/12/2021 2:22 PM PHARMACY OPERATIONS SPECIALIST Height - - Body Mass Index 33.06 08/23/2020 10:00 AM PHARMACY OPERATIONS SPECIALIST documented in this encounter Medications at Time [...] as of this encounter Progress Notes Nadia Thompson, RN - 05/12/2021 2:30 PM CST Is this the first dose: no History of previous infusion reactions? no Premedications: no Patient arrived for entyvio infusion. Vital signs stable. No signs of infection, per telephone note in chart Dr Haines approved patient for infusion. Tolerated infusion well. Discharged in stable condition. Will return to clinic for next infusion as scheduled on 07/07/20. MACY OPERATIONS SPECIALIST documented in this encounter Plan of Treatment Upcoming Encounters Date Type Specialty Care Team Description 05/05/2022 Appointment Chemo Therapy/Infusion Services 09/15/2022 Telemedicine Gastroenterology Eusebio Haines MD [address] [place] [address] (Wo rk) documented as of this encounter Visit Diagnoses Diagnosis Ulcerative colitis with rectal bleeding, unspecified location (HRC) - Primary documented in this encounter Administered Medications Inactive Administered Medications - up to 3 most recent administrations Medication Order MAR Action Action Date Dose Rate Site sodium chloride 0.9% injection Given 05/12/2021 3:21 PM PHARMACY OPERATIONS SPECIALIST 10 m L 10-60 mL 10-60 mL, Intravenous, PRN BEFORE&AFTER MEDICATIONS OR LAB DRAW, Line Patency, Starting on Tamela 05/12/21 at 1427, Until Tamela 05/12/21 at 1726, For 1 day vedolizumab (Entyvio) 300 mg in sodium Started 05/12/2021 2:46 PM PHARMACY OPERATIONS SPECIALIST 300 mg chloride 0.9 % 250 mL infusion 300 mg, Intravenous, Administer over 30 Minutes, ONCE, On Tamela 05/12/21 at 1515, For 1 dose, BIOTHERAPY - Must be given by chemotherapy/biotherapy certified documented in this encounter Care Teams Mine Surveyor Relationship Specialty Start Date End Date Sheeba Castillo, LOCKSMITH APPRENTICE, FOREST SCIENCE PROFESSOR PCP - General Nurse Practitioner 07/20/[address] [place] [id number] documented as of this encounter
--- OUTSIDE RECORDS SUMMARY | 2022-03-20 16:07 | XMS_ITS | Encounter Summary ---
:1975 Author Organization [employer] Address [address] [place] [address] Care Team Providers Name Role Phone Sheeba Castillo APRN, SIERRA Primary Care Provider [phone] Reason for Visit Reason Comments QUESTIONS, GENERAL Encounter Details Date Type Department Care Team Description 06/29/2020 Telephone Specialty Center 6500 Sravan Haines MD QUESTIONS, GENERAL Gastroenterology [address] [place] [id number] [phone] Social History Tobacco Use Types Packs/Day Years [...] at Date Recorded Female 05/09/2021 7:19 PM TELEGRAPH REPEATER INSTALLER documented as of this encounter Nursing Notes Marti Pandya RN - 06/29/2020 4:16 PM CST Received call from pt. Requesting ALEKS and supporting documents be sent to [facility] as she is going to change infusion centers but not providers. However the infusion center will do anew PA and is in need of records. Records faxed to . GRAPH REPEATER INSTALLER documented in this encounter Plan of Treatment Upcoming Encounters Date Type Specialty Care Team Description 05/05/2022 Appointment Chemo Therapy/Infusion Services 09/15/2022 Telemedicine Gastroenterology Eusebio Haines MD [address] [place] [address] (Wo rk) documented as of this encounter Visit Diagnoses Not on filedocumented in this encounter Care Teams Account Technician Relationship Specialty Start Date End Date Sheeba Castillo, GARBAGE COLLECTION SUPERVISOR, FILTERING MACHINE TENDER HELPER PCP - General Nurse Practitioner 07/20/16 [address] [place] MAGDALENA Dinh [phone] documented as of this encounter
--- OUTSIDE RECORDS SUMMARY | 2022-03-20 16:07 | XMS_ITS | Encounter Summary ---
:1975 Author Organization [employer] Address [address] [place] [address] Care Team Providers Name Role Phone Sheeba Castillo APRN, SIERRA Primary Care Provider [phone] Reason for Visit Reason Comments Orders Needed Encounter Details Date Type Department Care Team Description 07/01/2020 Telephone Specialty Center 6500 Sravan Haines MD Orders Needed Endoscopy [address] 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 Haines would like her to schedule a video visit and asked that she call back scheduling to get this scheduled. Spoke with RUDY Barney at [facility] giving message from Dr. Haines below, she verbalized understanding. To scheduling to call for appt if pt does not call back Eusebio Sims MD - 07/02/2020 5:49 PM CST No labs needed for the patient to resume her Entyvio infusions at [place]. However she does need an appointment with me in the clinic. Please contact her and arrange for her to schedule a GI Clinic video visit with me, as soon as possible. After that visit we will decide whether we need to pursue aflexible sigmoidoscopy. We will also assess which laboratory studies she needs including those that should be measured on a routine basis given that she is on Entyvio infusions. Thanks. Beth Khan RN - 07/02/2020 2:42 PM CST [facility] calling wondering if you want any labs prior/day of infusion and if you want LFT's done since doesn't look like it was done in a year or she doesn't have any records that it was done in a year. Phone - [phone] - . Eusebio Sims MD - 07/01/2020 7:32 AM CST Just received Infusion Therapy Request Form this morning in my mailbox, [facility]. Patient had been getting vedolizumab infusions at [facility] last year, last infusion in April 2020, but requested transfer of herinfusions to a more convenient location in [place]. Filled out paper work and signed it with vedolizumab dose and frequency, diagnosis with ICD code. I see that records for patient (which I presume includes all orders (premeds, contingency meds for reactions, and infusion dose patient had been getting up until her last infusion at [facility] last year)were faxed to [facility] on 06/29/2020. Aforementioned paper form placed in my office outbox. Please let me know if there is anything else I need to do to make the patient's vedolizumab infusionhappen on-schedule at her new infusion center site. Her disease has been somewhat hard to control and she is now finally doing well and I do not want to risk her disease relapsing. Thank you. ARM ANIMAL CARETAKER documented in this encounter Plan of Treatment Upcoming Encounters Date Type Specialty Care Team Description 05/05/2022 Appointment Chemo Therapy/Infusion Services 09/15/2022 Telemedicine Gastroenterology Eusebio Haines MD [address] [place], [place] [address] (Wo rk) documented as of this encounter Visit Diagnoses Not on filedocumented in this encounter Care Teams Balance Weigher Relationship Specialty Start Date End Date Sheeba Castillo, SENIOR HADOOP DEVELOPER, DESIZING PAD OPERATOR PCP - General Nurse Practitioner 07/20/16 [address] [place] MAGDALENA Dinh [id number] documented as of this encounter
--- OUTSIDE RECORDS SUMMARY | 2022-03-20 16:07 | XMS_ITS | Encounter Summary ---
:1975 Author Organization [employer] Address [address] [place] [address] Care Team Providers Name Role Phone Sheeba Castillo APRN, CNP Primary Care Provider [phone] Reason for Visit Reason Comments Infusion Encounter Details Date Type Department Care Team Description 09/16/2021 Hospital Encounter [facility] Ulcerative colitis with rect al bleeding, unspecified location (HRC) (Primary Dx); [address] Other ulcerative colitis wit h rectal bleeding (HRC) [place], [place] [id number] Social History Tobacco Use Types Packs/Day Years [...] at Date Recorded Female 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 no Premedications: no Patient arrived for entyvio infusion. Vital signs stable. No signs of infection. Tolerated infusion well. Discharged in stable condition. Will return to clinic for next infusion as scheduled 11/11/21. documented in this encounter Plan of Treatment Upcoming Encounters Date Type Specialty Care Team Description 05/05/2022 Appointment Chemo Therapy/Infusion Services 09/15/2022 Telemedicine Gastroenterology Eusebio Haines MD [address] [place], [place] [address] (Wo rk) documented as of this encounter Visit Diagnoses Diagnosis Ulcerative colitis with rectal bleeding, unspecified location (HRC) - Primary documented in this encounter Administered Medications Inactive Administered Medications - up to 3 most recent administrations Medication Order MAR Action Action Date Dose Rate Site sodium chloride 0.9% infusion Started 09/16/2021 3:20 PM CDT 500 mL 20 mL/hr 500 mL, Intravenous, at 20 mL/hr, ONCE, On Sun09/16/21 at 1530, For 1 dose sodium chloride 0.9% injection 10-60 mL Given 09/16/2021 3:57 PM CDT 10 mL 10-60 mL, Intravenous, PRN BEFORE&AFTER MEDICATIONS OR LAB DRAW, Line Patency, Starting on Sun09/16/21 at 1504, Until Sun09/16/21 at 1759, For 1 day vedolizumab (Entyvio) 300 mg in sodium Started 09/16/2021 3:20 PM CDT 300 mg chloride 0.9 % 250 mL infusion 300 mg, Intravenous, Administer over 30 Minutes, ONCE, On Sun09/16/21 at 1600, For 1 dose, BIOTHERAPY - Must be given by chemotherapy/biotherapy certified documented in this encounter Care Teams Fixed Route Bus Operator Relationship Specialty Start Date End Date Sheeba Castillo, ASSOCIATE PROGRAM MANAGER, SECURITY CLERK PCP - General Nurse Practitioner 07/20/16 [address] [place] MAGDALENA Dinh [id number] documented as of this encounter
--- OUTSIDE RECORDS SUMMARY | 2022-03-20 16:07 | XMS_ITS | Encounter Summary ---
:1975 Author Organization [employer] Address [address] [place] [address] Care Team Providers Name Role Phone Sheeba Castillo APRN, CNP Primary Care Provider [phone] Reason for Visit Reason Comments Infusion Infusion Therapy Plan (Routine) - Authorized Specialty Diagnoses / Procedures Referred By Contact Refer red To Contact Diagnoses Other ulcerative colitis with rectal bleeding (HRC) Eusebio Haines MD [facility] [address] [facility] [address] 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 No complaints. Premedicated with tylenol. Tolerated well with no issues. Discharged in stable condition. Will return 07/05/19 for next appt. ONNEL CONSULTANT documented in this encounter Plan of Treatment Upcoming Encounters Date Type Specialty Care Team Description 05/05/2022 Appointment Chemo Therapy/Infusion Services 09/15/2022 Telemedicine Gastroenterology Eusebio Haines MD [address] [place], [place] [address] (Wo rk) documented as of this encounter Visit Diagnoses Diagnosis Other ulcerative colitis with rectal ble eding (HRC) - Primary documented in this encounter Administered Medications Inactive Administered Medications - up to 3 most recent administrations Medication Order MAR Action Action Date Dose Rate Site acetaminophen (TYLENOL) tablet 975 Given 05/10/2020 2:49 PM PERSONNEL CONSULTANT 975 mg mg 975 mg, Oral, ONCE, On Sun05/10/20 at 1515, For 1 dose sodium chloride 0.9% infusion Started 05/10/2020 2:49 PM PERSONNEL CONSULTANT 500 mL 20 mL/hr 500 mL, Intravenous, at 20 mL/hr, ONCE, On Sun05/10/20 at 1515, For 1 dose sodium chloride 0.9% injection 10-60 mL Given 05/10/2020 3:28 PM PERSONNEL CONSULTANT 10 mL 10-60 mL, Intravenous, PRN BEFORE&AFTER MEDICATIONS OR LAB DRAW, Line Patency, Starting on Sun05/10/20 at 1445, Until Sun05/10/20 at 1753, For 1 day vedolizumab (Entyvio) 300 mg in sodium Started 05/10/2020 2:50 PM PERSONNEL CONSULTANT 300 mg chloride 0.9 % 250 mL infusion 300 mg, Intravenous, Administer over 30 Minutes, ONCE, On Sun05/10/20 at 1530, For 1 dose, BIOTHERAPY - Must be given by chemotherapy/biotherapy certified documented in this encounter Care Teams [employer] Sales Relationship Specialty Start Date End Date Sheeba Castillo, KELP GATHERER, PACKAGE MAKER PCP - General Nurse Practitioner 07/20/16 [address] [place] MAGDALENA Dinh [id number] documented as of this encounter
--- OUTSIDE RECORDS SUMMARY | 2022-03-20 16:07 | XMS_ITS | Encounter Summary ---
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 BASIC METABOLIC Routine 04/08/2020 3:56 PM Well adult exam Res ults for this PANEL CDT procedure are i n the results section. documented in this encounter Results (ABNORMAL) Basic Metabolic Panel (04/08/2020 3:56 PM CDT) Analysis Performed At Patho logist Time Signature Sodium 139 136 - 145 04/08/2020 [facility] mmol/L 4:39 PM CDT [facility]ORATORY Potassium 3.4 (L) 3.5 - 5.1 04/08/2020 [facility] mmol/L 4:39 PM CDT LABOR[facility]ORY Chloride 102 98 - 109 04/08/2020 [facility] mmol/L 4:39 PM CDT LABOR[facility]ORY CO2 28 20 - 29 04/08/2020 [facility] mmol/L 4:39 PM CDT [facility] Anion Gap 9 7 - 16 04/08/2020 [facility] mmol/L 4:39 PM CDT LABOR[facility]ORY Calcium 8.9 8.4 - 10.4 04/08/2020 [facility] mg/dL 4:39 PM CDT LAB[facility]ORY BUN 11 7 - 26 04/08/2020 [facility] mg/dL 4:39 PM CDT LAB[facility]ORY Creatinine 0.80 0.55 - 04/08/2020 [facility] 1.02 mg/dL 4:39 PM CDT LABORATORY GFR, Estimated >60 >60 04/08/2020 [facility] mL/min/1.7 4:39 PM CDT LABORATORY 3m2 Glucose 95 70 - 100 04/08/2020 [facility] mg/dL 4:39 PM CDT LABORATORY Comment: The given reference range is fo r the fasting state. Non-fasting reference range for glucose is 70 - 180 mg/dL. Hours Fasting 4 04/08/2020 4:39 PM CDT [facility] Specimen Anatomical Collection Method / Collection Time Recei peña Time (Source) Location / Volume Laterality Blood Venipuncture / 04/08/2020 3:56 04/08/2020 3:56 Unknown PM CDT PM CDT Idania Andrade MD LAB_1 Performing Organization Address City/State/ZIP Code Phon e Number [facility] [id number] [place] [phone] Lipid Panel and Direct LDL(If Needed) (04/08/2020 3:56 PM CDT) Analysis Performed At Patho logist Time Signature Cholesterol 175 0 - 199 04/08/2020 [facility] mg/dL 4:39 PM CDT LABORATORY Triglyceride 108 <=149 04/08/2020 [facility] mg/dL 4:39 PM CDT LABORATORY HDL Cholesterol 59 >=40 mg/dL 04/08/2020 [facility] 4:39 PM CDT LAB[facility]ORY LDL, Calculated 94 <130 mg/dL 04/08/2020 [facility] 4:39 PM CDT LABORATORY Non HDL Chol, 116 mg/dL 04/08/2020 [facility] Calculated 4:39 PM CDT LABORATORY Cholesterol/HDL 3.0 04/08/2020 [facility] Ratio 4:39 PM CDT LABORATORY Hours Fasting 4 04/08/2020 [facility] 4:39 PM CDT LAB[facility]ORY Specimen Anatomical Collection Method / Collection Time Recei peña Time (Source) Location / Volume Laterality Blood Venipuncture / 04/08/2020 3:56 04/08/2020 3:56 Unknown PM CDT PM CDT Idania Andrade MD LAB_1 Performing Organization Address City/State/ZIP Code Phon e Number [facility] [address] [place] [address] documented in this encounter Visit Diagnoses Diagnosis Well adult exam Routine general medical examination at a health care facility documented in this encounter Care Teams Fisheries Diver Relationship Specialty Start Date End Date Sheeba Castillo, UROLOGY NURSE, SLURRY MAN PCP - General Nurse Practitioner 07/20/16 [address] [place] MAGDALENA Dinh [address] documented as of this encounter
--- OUTSIDE RECORDS SUMMARY | 2022-03-20 16:07 | XMS_ITS | Encounter Summary ---
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 [place], [place] Need for vaccination with 13 -polyvalent pneumococcal conjugate vaccine; [facility] [address] [place] [address] [phone] Social History Tobacco Use Types Packs/Day Years [...] at Date Recorded Female 05/09/2021 7:19 PM INSIDE HORTICULTURAL SPECIALTY GROWER documented as of this encounter Patient Instructions Patient InstructionsVickie Garcia, SEPTIC TANK CLEANER - 01/28/2021 9:10 AM CDT It was a pleasure to talk with you today during your Gastroenterology Clinic telephone follow-up visit. Discussed your recent colonoscopy results which show that your ulcerative colitis appears to be in remission. Yours are also consistent with this as well. The residual symptoms you have are likely due to underlying irritable bowel syndrome and it appears that you are doing well in managing this with your medications such as dicyclomine, cholestyramine, etcetera. I will arrange some blood tests to be done. These blood tests should be done just before your next Entyvio infusion. I have also orderedvaccination for pneumococcus pneumonia with Prevnar and Pneumovax. The Prevnar vaccination should begiven first and the Pneumovax vaccination should be given at bleeding weeks after the Prevnar vaccination. Finally, given your high risk for low bone mineral density, I have ordered a DEXA scan to get a baseline bone mineral density examination. You can schedule that at your convenience. I will arrange for you to have another follow-up visit in our clinic in approximately 1 year. Please call me in the interim if you have a chance or concerns or simply send a message via your [employer] account. Test results are immediately released to [employer] when results are finalized. Please be aware that this means you may be viewing your results before the clinician who ordered the test(s) has seen and interpreted the results. If necessary, the ordering provider will communicate findings to you upon their review. 1. To schedule a colonoscopy: a. Best option: Click here: [email or web address] b. Alternative: Call [phone]. 2. To schedule an upper endoscopy (EGD): a. Online scheduling not available (yet). b. Call [phone]. 3. To schedule GI Clinic follow-up appointment: a. Best option: Click here: [email or web address] b. Alternative: Call [phone]. 4. To schedule a GI Clinic nurse visit (i.e., for vaccination or injection training): a. Call [phone]. 5. To schedule an imaging appointment (ultrasound, CT scan, MRI): a. Call [phone]. 6. To schedule a lab visit: a. Call [phone]. 7. Any questions? Need help? a. Call [phone]. documented in this encounter Progress Notes Eusebio Haines MD - 01/28/2021 9:10 AM CDT GI Clinic Telephone Progress Note Idania Duarte MR# [id number] [facility]# [id number] Date of Visit: 01/28/21 Idania Duarte is a 45 y.o. female who presents to the Gastroenterology Clinic today for a follow up on chronic left-sided ulcerative colitis now on vedolizumab fusions every 8 weeks doing well. She recently had a colonoscopy a few months which revealed that her colitis is in remission. Bowel habits are formed and without blood. However there is some degree of urgency with some of her bowel movements typically in the mornings. This is where the patient reports that she is focused most of her alterations in her medications used for irritable bowel syndrome. Otherwise has no other complaints for me today. Today's clinic appointment was originally scheduled as a video visit but due to technical difficulties, I was unable to reach the patient via [employer]. Reports that she feels much less stress at her new job. For PMH: Past Medical History: Diagnosis Date ??? BCC (basal cell carcinoma), leg 08/11/2011 ??? BP (high blood pressure) ??? Chronic headaches 08/11/2011 ??? Clostridium difficile colitis 01/2012 ??? Concussion 08/11/2011 ??? HTN (hypertension) (HRC) 08/11/2011 ??? Hx of tonsillectomy 08/11/2011 ??? Irritable bowel syndrome 11/29/2002 ??? 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 Obesity (HRC) 08/11/2011 PSH: Past Surgical History: Procedure Laterality Date ??? CYST REMOVAL left wrist ??? LAP CHOLECYSTECTOMY 07/12/2016 ??? TONSILLECTOMY Outpatient Meds: Outpatient Medications Prior to Visit Medication Sig Dispense Refill ??? busPIRone (BUSPAR) 7.5 MG tablet Take 1 Tablet by mouth two times a day. OK to double dose in 2 weeks if needed. 120 Tablet 3 ??? Calcium Carbonate Antacid 1000 MG Take by mouth. Reported on 08/14/2016 ??? cholestyramine (QUESTRAN) 4 GM/DOSE powder MIX 4 GRAMS IN 4-8 OUNCESOF FLUID AND DRINK ONCE DAILY. MAY INCREASE TO TWICE DAILY IF NOT IMPROVING. SEPERATE AT LEAST 2 HOURS FROM OTHER MEDICATIONS. 378 g 0 ??? dicyclomine (BENTYL) 20 MG tablet Take 1 Tablet by mouth 4 times daily as needed. Indications: abdominal cramping 360 Tablet 3 ??? Multiple Vitamin (MULTI-VITAMIN OR) Take 1 tablet by mouth daily (every 24 hours). ??? norethindrone-eth estradiol (PIRMELLA ) 1-35 MG-MCG tablet Take 1 Tablet by mouth daily. CONTINOUSLY 112 Tablet 3 ??? triamterene-hydrochlorothiazide (MAXZIDE-25) 37.5-25 MG tablet Take 1 Tablet by mouth daily. 90 Tablet 3 No facility-administered medications prior to visit. Allergies: No Known Allergies Review of Systems: Gen: Denies weakness, fatigue, malaise, night sweats. All other systems of a 10 point review of systems negative except as above and per hpi. PE: There were no vitals filed for this visit. Labs: @PNBRIEFLAB(WBC,wbccr,hgb,hct,mcv,PLTS) ) Lab Results Component Value Date Iron Binding Capacity 319 03/24/2015 Iron, Serum 88 03/24/2015 Lab Results Component Value Date INR 1.0 05/01/2019 Protime 12.9 05/01/2019 Lab Results Component Value Date Alkaline Phosphatase 71 12/01/2019 Bilirubin, Total 0.3 12/01/2019 Bilirubin, Direct 0.1 04/30/2019 Protein, Total 6.9 04/30/2019 Albumin 3.3 (L) 04/30/2019 AST (SGOT) 14 04/30/2019 ALT (SGPT) 29 12/01/2019 Lab Results Component Value Date Lipase 129 (H) 07/19/2016 Lipase 354 (H) 07/05/2016 Lab Results Component Value Date Sodium 139 04/08/2020 Potassium 3.4 (L) 04/08/2020 Chloride 102 04/08/2020 CO2 28 04/08/2020 Lab Results Component Value Date Creatinine 0.80 04/08/2020 Celiac Specific Labs: Lab Results Component Value Date Tissue Transglutaminase Antibody, IgA 4 02/19/2012 No results found for: IGA Hep A: No results found for: HAVTOTAL Hep B: Lab Results Component Value Date Hep B Surf Ag Nonreactive 07/26/2016 Lab Results Component Value Date Hep B Ab Quant >1,000 07/26/2016 Hep B Ab Quant 562 01/09/2014 Hep B Surf Ab Reactive 07/26/2016 Hep B Surf Ab Reactive 01/09/2014 Hep C: Lab Results Component Value Date Hepatitis C Antibody Non-React 03/24/2015 Inflammatory Markers: Lab Results Component Value Date C-Reactive Protein 1.5 (H) 12/01/2019 C-Reactive Protein 1.0 (H) 08/04/2019 C-Reactive Protein 0.2 05/04/2019 C-Reactive Protein 0.3 05/02/2019 C-Reactive Protein 0.4 05/01/2019 C-Reactive Protein 0.4 04/30/2019 Lab Results Component Value Date Calprotectin Fecal <16 01/04/2017 Fecal Calprotectin >1250 (H) 07/31/2019 Fecal Calprotectin 691 (H) 05/01/2019 Fecal Calprotectin 181 (H) 04/25/2019 Lab Results Component Value Date Sedimentation Rate 7 04/30/2019 Sedimentation Rate 12 01/03/2017 Sedimentation Rate 18 10/12/2016 Sedimentation Rate 19 04/02/2015 Sedimentation Rate 14 02/28/2008 Sedimentation Rate 3 09/27/2001 Imaging: (Past 12 months): No results found. GI Procedures: Procedure Date: 08/23/2020 10:45 AM Date of [...] and oxygen saturations were monitored continuously. The [id number] was introduced through the anus and advanced [...] pathology results. - Return to GI clinic. FINAL DIAGNOSIS A. Colon, cecum and ascending, biopsy: ?? No diagnostic abnormality B. Colon, transverse, polypectomy: ?? Hyperplastic polyp, multiple levels examined C. Colon, descending, biopsy: ?? No diagnostic abnormality D. Colon, rectosigmoid, biopsy: ?? Colonic mucosa with mild architectural changes suggestive of chronic quiescent colitis E. Colon, transverse, biopsy: ?? No diagnostic abnormality, multiple levels examined Comment: The patient's history of ulcerative colitis is noted. There is no evidence for active colitis, granulomas, or dysplasia. IMPRESSION/ASSESSMENT/PLAN: Left sided colitis with rectal bleeding (HRC)/Immunosuppression due to drug therapy (HRC)/ - Alanine Aminotransferase (ALT); Future - C Reactive Protein; Future - Bilirubin Total; Future - Vitamin D (In house); Future - Creatinine; Future - Hepatitis A Antibody, IgG; Future - Hemoglobin; Future - WBC, Blood; Future - Alkaline Phosphatase (ALK); Future - Vedolizumab drug trough level. 2.) Irritable bowel syndrome, unspecified type IBS symptoms currently being managed with cholestyramine and antispasmodics (dicyclomine). 3.) Need for 23-polyvalent pneumococcal polysaccharide vaccine/Need for vaccination with 13-polyvalent pneumococcal conjugate vaccine: - PPSV23 (PNEUMOVAX) - PCV13 (PREVNAR) Patient eligible for pneumococcal vaccination given her ulcerative colitis and immunosuppression to drug therapy (vedolizumab). Orders entered and signed for Prevnar, to be given 1st, followed by Pneumovax no earlier than 8 weeks after Prevnar. 4.) At high risk for osteoporosis: - Vitamin D (In house); Future - Alkaline Phosphatase (ALK); Future - DXA Bone Density Spine/[employer] Vert FX Assess; Future Patient at high risk for local density given ulcerative colitis, previous systemic corticosteroid treatment, etcetera. Baseline DEXA scan ordered for patient. We will also check a vitamin-D level. 5.) HCM: Vaccinated for hepatitis-B virus with corresponding high titer of protective surface antibody. All questions were answered today to the patient's satisfaction. She verbalized agreement with the plan of care. 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
--- OUTSIDE RECORDS SUMMARY | 2022-03-20 16:07 | XMS_ITS | Encounter Summary ---
:1975 Author Organization [employer] Address [address] [address] Care Team Providers Name Role Phone Sheeba Castillo APRN, KILN CLEANER Primary Care Provider [phone] Reason for Visit Reason Comments IV,THERAPY Encounter Details Date Type Department Care Team Description 09/13/2021 Telephone Specialty Center 650Sravan Gaxiola MD IV,THERAPY Gastroenterology [address] [place] [address] [place], [place] [address] [phone] Social History Tobacco Use Types Packs/Day Years [...] at Date Recorded Female 05/09/2021 7:19 PM BIOINFORMATICIST documented as of this encounter Progress Notes Ramiro Bojorquez MD - 09/15/2021 12:41 PM CDT Addended by: RAMIRO BOJORQUEZ on: 09/15/2021 12:41 PM Modules accepted: Orders documented in this encounter Nursing Notes Ramiro Bojorquez MD - 09/15/2021 12:39 PM CDT Therapy plan renewed. Catherine Shoemaker MD - 09/15/2021 12:05 PM CDT Charles, I cannot locate an Entyvio therapy plan- is there another name? Charles Duran RN - 09/15/2021 9:[address] Haines is off this week, sending to air pollution auditor provider for signature. Nanda Ceja RP - 09/13/2021 9:09 AM CDT Idania Duarte???s Entyvio Therapy Plan orders have . Idania is scheduled for her next Entyvio infusion this 09/16/21. Her last infusion was on 05/12/21. Please review, select, and sign the orders in this plan as appropriate if you would like your patient to continue with their infusion therapy. Thank you, Nanda Ceja RPh 09/13/2021 documented in this encounter Plan of Treatment Upcoming Encounters Date Type Specialty Care Team Description 05/05/2022 Appointment Chemo Therapy/Infusion Services 09/15/2022 Telemedicine Gastroenterology Eusebio Haines MD [address] [place] [address] (Wo rk) documented as of this encounter Visit Diagnoses Not on filedocumented in this encounter Care Teams Bus Monitor Relationship Specialty Start Date End Date Sheeba Castillo APRN, KILN CLEANER PCP - General Nurse Practitioner 07/20/16 [address] [place] [address] documented as of this encounter
--- OUTSIDE RECORDS SUMMARY | 2022-03-20 16:07 | XMS_ITS | Encounter Summary ---
:1975 Author Organization [employer] Address [address] [place] [address] Care Team Providers Name Role Phone Sheeba Castillo APRN, LINOTYPE MACHINIST Primary Care Provider [phone] Reason for Visit Reason Comments Refill Encounter Details Date Type Department Care Team Description 06/09/2021 Refill Specialty Center 6500 Sravan Haines MD Refill Gastroenterology [address] [place] [address] [place], [place] [address] [phone] Social History Tobacco Use Types Packs/Day Years [...] at Date Recorded Female 05/09/2021 7:19 PM CAMPAIGN DEVELOPER documented as of this encounter Nursing Notes Beth Nichols RN - 06/09/2021 8:50 AM CST Last Visit - 8/6/21 - Yancy Next Visit - None Requested Prescriptions Pending Prescriptions Disp Refills ??? dicyclomine (BENTYL) 20 MG tablet [Pharmacy Med Name: DICYCLOMINE HCL 20 MG TABS 20 Tablet] 360 Tablet 2 Sig: TAKE 1 TABLET BY MOUTH 4 TIMES DAILY NEEDED AIGN DEVELOPER documented in this encounter Plan of Treatment Upcoming Encounters Date Type Specialty Care Team Description 05/05/2022 Appointment Chemo Therapy/Infusion Services 09/15/2022 Telemedicine Gastroenterology Eusebio Haines MD [address] [place], [place] [id number] (Wo rk) documented as of this encounter Visit Diagnoses Diagnosis Irritable bowel syndrome, unspecified ty pe Chronic ulcerative proctitis with rectal bleeding (HRC) Ulcerative (chronic) proctitis documented in this encounter Care Teams Superintendent Sanitation Relationship Specialty Start Date End Date Sheeba Castillo, BUTT PRESSER, LINOTYPE MACHINIST PCP - General Nurse Practitioner 07/20/16 [address] [place] [id number] documented as of this encounter
--- OUTSIDE RECORDS SUMMARY | 2022-03-20 16:07 | XMS_ITS | Encounter Summary ---
:1975 Author Organization [employer] Address [address] [place] [address] Care Team Providers Name Role Phone Sheeba Castillo APRN, DINKING MACHINE OPERATOR Primary Care Provider [phone] Reason for Visit Reason Onset Date Comments Refill 05/19/2020 norethindrone-eth es tradiol (PIRMELLA ) 1-35 MG-MCG tablet Encounter Details Date Type Department Care Team Description 05/19/2020 Refill [facility] Iggy Hernandez MD Refill Medicine [address] [facility] E (norethindrone-eth [address] [place], [place] estradiol [place] [address] ) 1-35 MG-MCG [phone] (Wo rk) tablet) Social History Tobacco Use Types Packs/Day Years [...] at Date Recorded Female 05/09/2021 7:19 PM RESEARCH LABORATORY SPECIALIST documented as of this encounter Nursing Notes Rufina Cleary, RN - 05/21/2020 10:38 AM CST Renewed medication per medication refill protocol. Requested Prescriptions Signed Prescriptions Disp Refills ??? norethindrone-eth estradiol (PIRMELLA /35) 1-35 MG-MCG tablet 112 Tablet 3 Sig: Take 1 Tablet by mouth daily. CONTINOUSLY Authorizing Provider: IGGY HERNANDEZ Ordering User: RUFINA CLEARY ARCH LABORATORY SPECIALIST Interface, Out Surescripts Prov Query - 05/19/2020 4:19 PM CST norethindrone-eth estradiol (PIRMELLA 35) 1-35 MG-MCG tablet Medication started: 09/30/2014 Last ordered by IGGY HERNANDEZ (77 days ago) QTY: 112, Refills: 0, Sig: take 1 tablet by mouth daily. continously (unchanged) -> Refill x 12 months (until due for an office visit) -> Calculate the quantity and number of refills manually. Last qualifying visit: 03/15/2020 (with IGGY HERNANDEZ) Next scheduled visit: None Powered by [facility], Reference: [id number], 05/19/2020 4:18:58 PM RESEARCH LABORATORY SPECIALIST, Pool: [facility] ([id number]) ARCH LABORATORY SPECIALIST documented in this encounter Plan of Treatment Upcoming Encounters Date Type Specialty Care Team Description 05/05/2022 Appointment Chemo Therapy/Infusion Services 09/15/2022 Telemedicine Gastroenterology Eusebio Haines MD [address] [place] [address] (Wo rk) documented as of this encounter Visit Diagnoses Diagnosis Well adult exam Routine general medical examination at a health care facility documented in this encounter Care Teams Poultry Scalder Relationship Specialty Start Date End Date Sheeba Castillo, POT FIREMAN, DINKING MACHINE OPERATOR PCP - General Nurse Practitioner 07/20/16 [address] [place] [id number] documented as of this encounter
--- OUTSIDE RECORDS SUMMARY | 2022-03-20 16:07 | XMS_ITS | Encounter Summary ---
:1975 Author Organization [employer] Address [address] [place] [address] Care Team Providers Name Role Phone Sheeba Castillo APRN, CNP Primary Care Provider [phone] Reason for Visit Reason Comments Infusion Infusion Therapy Plan (Routine) - Authorized Specialty Diagnoses / Procedures Referred By Contact Refer red To Contact Diagnoses Other ulcerative colitis with rectal bleeding (HRC) Eusebio Haines MD [facility] [address] [facility] [address] [place], [place] [address] [place] [address] Phone: Fax: Referral ID Status Reason Start Date Expiration Date Visits V isits Requested Authorized [id number] Authorized 09/04/2019 07/24/[phone] Encounter Details Date Type Department Care Team Description 01/14/2021 Hospital Encounter [facility] Ulcerative colitis with rect al bleeding, unspecified location (HRC) (Primary Dx); [address] Other ulcerative colitis wit h rectal bleeding (HRC) [place] [address] Social History Tobacco Use Types Packs/Day Years [...] at Date Recorded Female 05/09/2021 7:19 PM SERVICE CAPTAIN documented as of this encounter Last Filed Vital Signs Vital Sign Reading Time Taken Comments Blood Pressure 145/90 01/14/2021 10:56 AM CDT Pulse 98 01/14/2021 10:56 AM CDT Temperature 36.5 ??C (97.7 ??F) 01/14/2021 10:56 AM CDT Respiratory Rate - - Oxygen Saturation 97% 01/14/2021 10:56 AM CDT Inhaled Oxygen Concentration - - [...] encounter Progress Notes Nadia Thompson RN - 01/14/2021 11:00 AM CDT Pt here for entyvio infusion. No complaints. Tolerated well with no issues. Discharged in stable condition. Will return 03/11/21 for next appt. documented in this encounter Plan of Treatment Upcoming Encounters Date Type Specialty Care Team Description 05/05/2022 Appointment Chemo Therapy/Infusion Services 09/15/2022 Telemedicine Gastroenterology Eusebio Haines MD [address] [place] [address] (Wo rk) documented as of this encounter Visit Diagnoses Diagnosis Ulcerative colitis with rectal bleeding, unspecified location (HRC) - Primary documented in this encounter Administered Medications Inactive Administered Medications - up to 3 most recent administrations Medication Order MAR Action Action Date Dose Rate Site sodium chloride 0.9% injection Given 01/14/2021 11:55 AM CDT 10 mL 10-60 mL 10-60 mL, Intravenous, PRN BEFORE&AFTER MEDICATIONS OR LAB DRAW, Line Patency, Starting on Sun01/14/21 at 1100, Until Sun01/14/21 at 1446, For 1 day vedolizumab (Entyvio) 300 mg in sodium Started 01/14/2021 11:17 AM CDT 300 mg chloride 0.9 % 250 mL infusion 300 mg, Intravenous, Administer over 30 Minutes, ONCE, On Sun01/14/21 at 1145, For 1 dose, BIOTHERAPY - Must be given by chemotherapy/biotherapy certified documented in this encounter Care Teams Dog Daycare Provider Relationship Specialty Start Date End Date Sheeba Castillo, CHIEF NURSING EXECUTIVE, MILL ATTENDANT PCP - General Nurse Practitioner 07/20/16 [address] [place] [address] documented as of this encounter
--- OUTSIDE RECORDS SUMMARY | 2022-03-20 16:08 | XMS_ITS | Encounter Summary ---
:1975 Author Organization [employer] Address [address], [place] [address] Care Team Providers Name Role Phone Sheeba Castillo APRN, SIERRA Primary Care Provider [phone] Encounter Details Date Type Department Care Team Description 12/01/2019 Lab Visit [facility] Ulcerative rectosigmoiditis with rectal bleeding (HRC); [address] [facility] Immunosuppressed status (HRC ) [place] [address] Social History Tobacco Use Types Packs/Day Years Used Date Smoking Tobacco: Former Cigarettes 0.3 15 Quit : 04/25/2015 Smokeless Tobacco: Never Alcohol Use Standard Drinks/Week Comments Yes 3 (1 standard drink = 0.6 oz pure alcoho l) 3 drinks a week Alcohol Habits Answer Date Recorded How often do you have a drink containing alcohol? Not asked How many drinks containing alcohol do you have on a Not aske d typical day when you are drinking? How often do you have six or more drinks on one Not asked occasion? 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 documented as of this encounter Plan of Treatment Upcoming Encounters Date Type Specialty Care Team Description 05/05/2022 Appointment Chemo Therapy/Infusion Services 09/15/2022 Telemedicine Gastroenterology Eusebio Haines MD [address] [place] [address] (Wo rk) documented as of this encounter Procedures Procedure Name Priority Date/Time Associated Diagnosis Comme nts VEDOLIZUMAB Routine 12/01/2019 3:42 Ulcerative Results for this QUANTITATION WITH PM CDT rectosigmoiditis with p rocedure are in REFLEX TO ANTIBODIES rectal blee gamaliel (HRC) the results Immunosuppressed status sect ion. (HRC) CMV BY PCR, QUAL Routine 12/01/2019 3:42 Ulcerative Results for this PM CDT rectosigmoiditis with proced ure are in rectal bleeding (HRC) the results Immunosuppressed status sect ion. (HRC) CREATININE / GFR Routine 12/01/2019 3:42 Ulcerative Results for this PM CDT rectosigmoiditis with proced ure are in rectal bleeding (HRC) the results Immunosuppressed status sect ion. (HRC) PLATELETS Routine 12/01/2019 3:42 Ulcerative Results for this PM CDT rectosigmoiditis with proced ure are in rectal bleeding (HRC) the results Immunosuppressed status sect ion. (HRC) HEMOGLOBIN, BLOOD Routine 12/01/2019 3:42 Ulcerative Results for this PM CDT rectosigmoiditis with proced ure are in rectal bleeding (HRC) the results Immunosuppressed status sect ion. (HRC) WBC, BLOOD Routine 12/01/2019 3:42 Ulcerative Results for this PM CDT rectosigmoiditis with proced ure are in rectal bleeding (HRC) the results Immunosuppressed status sect ion. (HRC) C-REACTIVE PROTEIN Routine 12/01/2019 3:42 Ulcerative Result s for this PM CDT rectosigmoiditis with proced ure are in rectal bleeding (HRC) the results Immunosuppressed status sect ion. (HRC) ALT (SGPT) Routine 12/01/2019 3:42 Ulcerative Results for this PM CDT rectosigmoiditis with proced ure are in rectal bleeding (HRC) the results Immunosuppressed status sect ion. (HRC) BILIRUBIN, TOTAL Routine 12/01/2019 3:42 Ulcerative Results for this PM CDT rectosigmoiditis with proced ure are in rectal bleeding (HRC) the results Immunosuppressed status sect ion. (HRC) ALKALINE Routine 12/01/2019 3:42 Ulcerative Results for this PHOSPHATASE, TOTAL PM CDT rectosigmoiditis with procedure are in rectal bleeding (HRC) the results Immunosuppressed status sect ion. (HRC) documented in this encounter Results CMV By PCR, Qualitative (12/01/2019 3:42 PM CDT) [facility] gist Method Time Signature CMV By PCR, Not Detected 12/04/2019 [place] Qual 4:12 PM CDT LABORATORIES Comment: NOT DETECTED - A negative result does no t rule out the presence of PCR inhibitors in the patien t specimen or assay specific nucleic acid in concentra tions below the level of detection by the assay. INTERPRETIVE INFORMATION: Cytomegaloviru s Detection by PCR Test developed and characteristics deter mined by [facility]. See Compliance Statement A : [facility] Performed by [facility], [address] [place] [id number] [email or web address], Romulo Pritchett MD, Lab. Director CMV Source Plasma 12/04/2019 4:12 PM CDT [facility] Specimen Anatomical Collection Method / Collection Time Recei peña Time (Source) Location / Volume Laterality Blood OTHER / Unknown Venipuncture / 12/01/2019 3:42 020 3:42 Unknown PM CDT PM CDT Eusebio Haines MD LAB_1 Performing Organization Address City/[facility]/ZIP Code Phon e Number [facility] [address] [place], [place] [phone] WBC, Blood (12/01/2019 3:42 PM CDT) athologist [facility] WBC 10.1 3.5 - 10.5 12/01/2019 [facility] x10(9)/L 3:47 PM CDT LABORATORY Specimen Anatomical Collection Method / Collection Time Recei peña Time (Source) Location / Volume Laterality Blood Venipuncture / 12/01/2019 3:42 12/01/2019 3:42 Unknown PM CDT PM CDT Eusebio Haines MD LAB_1 Performing Organization Address City/State/ZIP Code Phon e Number [facility] [address] [place] [address] Platelet Count (12/01/2019 3:42 PM CDT) athologist [facility] Platelets 336 150 - 450 12/01/2019 [facility] x10(9)/L 3:47 PM CDT LABORATORY Specimen Anatomical Collection Method / Collection Time Recei peña Time (Source) Location / Volume Laterality Blood Venipuncture / 12/01/2019 3:42 12/01/2019 3:42 Unknown PM CDT PM CDT Eusebio Haines MD LAB_1 Performing Organization Address [facility] Phon e Number [facility] [id number] [place] [phone] Hemoglobin (12/01/2019 3:42 PM CDT) athologist Signature Hemoglobin 14.1 12.0 - 15.5 12/01/2019 [facility] g/dL 3:47 PM CDT LABORATORY Specimen Anatomical Collection Method / Collection Time Recei peña Time (Source) Location / Volume Laterality Blood Venipuncture / 12/01/2019 3:42 12/01/2019 3:42 Unknown PM CDT PM CDT Eusebio Haines MD LAB_1 Performing Organization Address [facility] e Number [facility] [address] [place] [phone] Bilirubin Total (12/01/2019 3:42 PM CDT) athologist Signature Bilirubin, 0.3 0.2 - 1.2 12/01/2019 [facility] Total mg/dL 4:40 PM CDT LABORATORY Specimen Anatomical Collection Method / Collection Time Recei peña Time (Source) Location / Volume Laterality Blood Venipuncture / 12/01/2019 3:42 12/01/2019 3:42 Unknown PM CDT PM CDT Eusebio Haines MD LAB_1 Performing Organization Address [facility] Phon e Number [facility] [address] [place] [phone] Alanine Aminotransferase (ALT) (12/01/2019 3:42 PM CDT) athologist Signature ALT (SGPT) 29 0 - 55 U/L 12/01/2019 [facility] 4:40 PM CDT LABORATORY Specimen Anatomical Collection Method / Collection Time Recei peña Time (Source) Location / Volume Laterality Blood Venipuncture / 12/01/2019 3:42 12/01/2019 3:42 Unknown PM CDT PM CDT Eusebio Haines MD LAB_1 Performing Organization Address [facility] Phon e Number [facility] [address] [place], [place] [phone] Alkaline Phosphatase (ALK) (12/01/2019 3:42 PM CDT) athologist Signature Alkaline 71 40 - 150 12/01/2019 [facility] Phosphatase U/L 4:40 PM CDT LABORATORY Specimen Anatomical Collection Method / Collection Time Recei peña Time (Source) Location / Volume Laterality Blood Venipuncture / 12/01/2019 3:42 12/01/2019 3:42 Unknown PM CDT PM CDT Eusebio Haines MD LAB_1 Performing Organization Address [facility] Phon e Number [facility] [address] [place], [place] [phone] Creatinine (12/01/2019 3:42 PM CDT) athologist Signature Creatinine 0.80 0.55 - 12/01/2019 [facility] 1.02 mg/dL 4:40 PM CDT LABORATORY GFR, Estimated >60 >60 12/01/2019 [facility] mL/min/1.7 4:40 PM CDT LABORATORY 3m2 GFR, Est If >60 >60 12/01/2019 [facility] mL/min/1.7 4:40 PM CDT LABORATORY Burmese 3m2 Specimen Anatomical Collection Method / Collection Time Recei peña Time (Source) Location / Volume Laterality Blood Venipuncture / 12/01/2019 3:42 12/01/2019 3:42 Unknown PM CDT PM CDT Eusebio Haines MD LAB_1 Performing Organization Address [facility] Phon e Number [facility] [address] [place], [place] [phone] (ABNORMAL) C Reactive Protein (12/01/2019 3:42 PM CDT) athologist Signature C-Reactive 1.5 (H) 0.0 - 0.7 12/01/2019 [facility] Protein mg/dL 4:40 PM CDT LABORATORY Specimen Anatomical Collection Method / Collection Time Recei peña Time (Source) Location / Volume Laterality Blood Venipuncture / 12/01/2019 3:42 12/01/2019 3:42 Unknown PM CDT PM CDT Eusebio Haines MD LAB_1 Performing Organization Address City/[facility]/ZIP Code Phon e Number [facility] [address] [place] [phone] Vedolizumab Quantitation with Reflex to Antibodies (12/01/2019 3:42 PM CDT) P athologist Signature Vedolizumab 20.8 mcg/mL 12/05/2019 [facility] 3:00 PM CDT LAB Comment: For concentrations of vedolizumab less t palacio or equal to 15.0 mcg/mL, reflex testing for antibodi [id number] will be performed. REFERENCE VALUE------ Lower limit of quantitation = 2.0 mcg/mL ADDITIONAL INFORMATIO N This test was developed and its performa nce characteristics determined by [facility] in a manner co nsistent with CLIA requirements. This test has not been nicho ared or approved by the U.S. Food and Drug Administration. Test Performed by: [address] [facility] [address] [place] [address] [address] Engineer: Sergio Ashby M.D. Ph. D.; CLIA# [id number] Specimen Anatomical Collection Method / Collection Time Recei peña Time (Source) Location / Volume Laterality Blood Venipuncture / 12/01/2019 3:42 12/01/2019 3:42 Unknown PM CDT PM CDT Eusebio Haines MD LAB_1 Performing Organization Address City/State/ZIP Code Phon e Number [facility] [place] [address] documented in this encounter Visit Diagnoses Diagnosis Ulcerative rectosigmoiditis with rectal bleeding (HRC) Immunosuppressed status (HRC) Unspecified disorder of immune mechanism documented in this encounter Care Teams Hospital Account Liaison Relationship Specialty Start Date End Date Sheeba Castillo, RUDY, WHEEL POLISHER PCP - General Nurse Practitioner 07/20/16 [address] [place] [address] documented as of this encounter
--- OUTSIDE RECORDS SUMMARY | 2022-03-20 16:08 | XMS_ITS | Encounter Summary ---
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 documented in this encounter Results CONTAINER TEST (11/28/2019 12:16 PM CDT) athologist Signature Container Done 11/28/2019 [facility] Given 2:00 PM CDT LABORATORY Specimen Anatomical Collection Method Collection Time Receive d Time (Source) Location / / Volume Laterality Other Specimen 11/28/2019 12:16 0 Type PM CDT 12:16 PM CDT Eusebio Haines MD LAB_1 Performing Organization Address City/State/ZIP Code Phon e Number [facility] [address] [place] [phone] documented in this encounter Visit Diagnoses Diagnosis Routine general medical examination at [facility] facility - Primary Routine general medical examination at a health care facility documented in this encounter Care Teams Lumber Stacker Operator Relationship Specialty Start Date End Date Sheeba Castillo, COREMAKER APPRENTICE, BPM ARCHITECT PCP - General Nurse Practitioner 07/20/16 [address] [place] [address] documented as of this encounter
--- OUTSIDE RECORDS SUMMARY | 2022-03-20 16:08 | XMS_ITS | Encounter Summary ---
:1975 Author Organization [employer] Address [address] [address] Care Team Providers Name Role Phone Sheeba Castillo APRN, TOLL TEST DESK WORKER Primary Care Provider [phone] Reason for Visit Reason Comments Refill Encounter Details Date Type Department Care Team Description 12/16/2019 Refill Special[facility] [address] Sravan Haines MD Refill Gastroenterology [address] 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 hyoscyamine (LEVSIN/SL) 0.125 MG sublingual tablet [Pharmacy Med Name: Hyoscyamine Sulfate Sublingual Tablet Sublingual 0.125 MG] 30 Tablet 0 Sig: TAKE 1 TABLET BY MOUTH EVERY 4 HOURS NEEDED FOR CRAMPING. documented in this encounter Plan of Treatment Upcoming Encounters Date Type Specialty Care Team Description 05/05/2022 Appointment Chemo Therapy/Infusion Services 09/15/2022 Telemedicine Gastroenterology Eusebio Haines MD [address] [place] [address] (Wo rk) documented as of this encounter Visit Diagnoses Not on filedocumented in this encounter Care Teams Manager Multicultural Relationship Specialty Start Date End Date Sheeba Castillo APRN, TOLL TEST DESK WORKER PCP - General Nurse Practitioner 07/20/16 [address] [place] [phone] documented as of this encounter
--- OUTSIDE RECORDS SUMMARY | 2022-03-20 16:08 | XMS_ITS | Encounter Summary ---
:1975 Author Organization [employer] Address [address], [place] [address] Care Team Providers Name Role Phone Sheeba Castillo APRN, CNP Primary Care Provider [phone] Reason for Visit Reason Comments Infusion Infusion Therapy Plan (Routine) - Authorized Specialty Diagnoses / Procedures Referred By Contact Refer red To Contact Diagnoses Other ulcerative colitis with rectal bleeding (HRC) Eusebio Haines MD [facility] [address] [facility] [address] 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 0 02/15/2012 Antacid 1000 MG Reported on 08/14/2016 Multiple Vitamin Take 1 tablet by 0 11/14/2011 (MULTI-VITAMIN OR) mouth daily (every 24 hours). budesonide (ENTOCORT Take 3 Capsules by 90 Capsule 1 020 12/16/2019 EC) 3 MG mouth daily. capsuleIndications: Ulcerative rectosigmoiditis with rectal bleeding (HRC) budesonide (UCERIS) 9 Take 1 Tablet by 90 Tablet 0 10/23/19 20 10/27/2019 MG 24 hr mouth daily. tabletIndications: Ulcerative rectosigmoiditis with rectal bleeding (HRC) cholestyramine Take 4 g by mouth 810 g 3 08/28/201803/2020 (QUESTRAN) 4 GM/DOSE daily. Ok to powder increase to twice daily if needed. Separate at least 2 hours from other medications. dicyclomine (BENTYL) 20 TAKE 1 TABLET BY 360 Tablet 3 201704/21/2020 MG tablet MOUTH 4 TIMES DAILY NEEDED hydrocortisone Insert 100 mg 30 Each 11 08/15/2019 020 (CORTENEMA) 100 MG/60ML rectally daily at enema bedtime. hydrocortisone Insert 1 30 Each 0 07/15/2019 02/27/2020 (HYDROCORTISONE 25 MG) Suppository 25 MG suppository rectally daily at bedtime. hyoscyamine (LEVSIN/SL) Take 1 Tablet by 30 Tablet 1 201912/16/2019 0.125 MG sublingual mouth every 4 tablet hours as needed for Cramping. mesalamine (CANASA) Insert 1 30 Suppository 2 07/01/2019 0 02/27/2020 1000 MG Suppository suppositoryIndications: rectally daily at Ulcerative pancolitis bedtime. with rectal bleeding (HRC) norethindrone-eth Take 1 Tablet by 112 Tablet 3 12/19/2018 0 10/25/2019 estradiol (DASETTA mouth daily. Takes ) 1-35 MG-MCG continuously tabletIndications: Well adult exam Phentermine HCl 30 MG Take 30 mg by 0 03/15/2020 capsule mouth daily. Phentermine HCl 37.5 MG TAKE 1 CAPSULE BY 90 Capsule 0 06/1303/15/2020 capsule MOUTH DAILY. PIRMELLA /35 1-35 TAKE ONE TABLET BY 112 Tablet 0 0 02/27/2020 MG-MCG MOUTH ONE TIME tabletIndications: Well DAILY CONTINOUSLY. adult exam predniSONE (DELTASONE) 4 tabs daily for 2 112 Tablet 0 08/2402/27/2020 10 MG tablet wk, 3 tabs daily for 1 wk, 2 tabs daily for 1 wk, then decrease by 1/2 tab weekly until done triamcinolone acetonide Apply topically 80 g 0 020 02/27/2020 (KENALOG) 0.1 % two times daily as ointment needed. To itchy bumps on trunk and extremities triamterene-hydrochloro TAKE 1 TABLET BY 90 Tablet 3 201802/27/2020 thiazide (MAXZIDE-25) MOUTH DAILY. 37.5-25 MG tabletIndications: Essential hypertension (HRC) documented as of this encounter Progress Notes Nadia Thompson RN - 10/22/2019 2:30 PM CDT Pt here for entyvio infusion. Pt states she is still having loose stools. Pt states she spoke with MD about starting new medication (budenoside?). Tolerated infusion well with no issues. Discharged in stable condition. WIll return 12/03/19 for next appt. documented in this encounter Plan of Treatment Upcoming Encounters Date Type Specialty Care Team Description 05/05/2022 Appointment Chemo Therapy/Infusion Services 09/15/2022 Telemedicine Gastroenterology Eusebio Haines MD [address] [place] [address] (Wo rk) documented as of this encounter Visit Diagnoses Diagnosis Other ulcerative colitis with rectal ble eding (HRC) - Primary documented in this encounter Administered Medications Inactive Administered Medications - up to 3 most recent administrations Medication Order MAR Action Action Date Dose Rate Site acetaminophen (TYLENOL) tablet 975 Given 10/22/2019 2:47 PM CDT 975 mg mg 975 mg, Oral, ONCE, On Sun10/22/19 at 1500, For 1 dose sodium chloride 0.9% injection 10-60 mL Given 10/22/2019 3:26 PM CDT 10 mL 10-60 mL, Intravenous, PRN BEFORE&AFTER MEDICATIONS OR LAB DRAW, Line Patency, Starting on Sun10/22/19 at 1436, Until Sun10/22/19 at 1727, For 1 day vedolizumab (Entyvio) 300 mg in sodium Started 10/22/2019 2:48 PM CDT 300 mg chloride 0.9 % 250 mL infusion 300 mg, Intravenous, Administer over 30 Minutes, ONCE, On Sun10/22/19 at 1530, For 1 dose, BIOTHERAPY - Must be given by chemotherapy/biotherapy certified documented in this encounter Care Teams Business Office Associate Relationship Specialty Start Date End Date Sheeba Castillo, GLASSWARE VERIFIER, STAINING MACHINE OPERATOR PCP - General Nurse Practitioner 07/20/16 [address] [place] [id number] documented as of this encounter
--- OUTSIDE RECORDS SUMMARY | 2022-03-20 16:08 | XMS_ITS | Encounter Summary ---
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 (HRC) CYCLOSPORA STAIN FOR Routine 12/02/2019 7:51 Ulcerative Resu lts for this PARASITES PM CDT rectosigmoiditis with proced ure are in rectal bleeding (HRC) the results Immunosuppressed status sect ion. (HRC) ENTERIC PARASITE Routine 12/02/2019 4:30 Ulcerative Results for this MOLECULAR DETECTION PM CDT rectosigmoiditis with procedure are in (GIARDIA, rectal bleeding (HRC) the results CRYPTOSPORIDIUM, Immunosuppressed status section. E.HISTOLYTICA) (HRC) OVA & PARASITE EXAM Routine 12/02/2019 4:30 Ulcerative Resul ts for this PANEL PM CDT rectosigmoiditis with proced ure are in rectal bleeding (HRC) the results Immunosuppressed status sect ion. (HRC) OVA & PARASITE EXAM Routine 12/02/2019 4:30 Ulcerative Resul ts for this #1 PM CDT rectosigmoiditis with proced ure are in rectal bleeding (HRC) the results Immunosuppressed status sect ion. (HRC) documented in this encounter Results Cyclospora stain for parasites (12/02/2019 7:51 PM CDT) [facility] Method Time Signature Cyclospora Negative Negative 12/04/2019 [facility] Stain 10:21 AM CDT LABORATORIES Comment: A single negative result does not rule o ut the possibility of a parasitic infection. TEST INFORMATION: The parasitology stain is a modified acid fast stain that detects Cryptosporidium, Cycl ospora and Cystoisospora. Performed by [facility], [address] [place] [address] [email or web address], Romulo Pritchett MD, Lab. Director Specimen Anatomical Collection Method Collection Time Receive d Time (Source) Location / / Volume Laterality Stool 12/02/2019 7:51 PM 0 8:24 CDT AM CDT Eusebio Haines MD LAB_1 Performing Organization Address City/State/ZIP Code Phon e Number [facility] [address] [place], [place] [address] Microsporidia stain (12/02/2019 7:51 PM CDT) [facility] Time Signature Microsporidia Negative Negative 12/04/2019 [facility] Stain 2:54 PM CDT LABORATORIES Comment: A single negative result does not rule o ut the possibility of a microsporidia infection. Performed by [facility], [address] [place] [address] [email or web address], Romulo Pritchett MD, Lab. Director Specimen Anatomical Collection Method Collection Time Receive d Time (Source) Location / / Volume Laterality Stool 12/02/2019 7:51 PM 0 8:24 CDT AM CDT Eusebio Haines MD LAB_1 Performing Organization Address City/[facility] Code Phon e Number [facility] [address] [place], [place] [address] Ova & Parasite Exam (12/02/2019 4:30 PM CDT) [facility] Signature Ova and No Parasites No Parasites 12/04/2019 [facility] Parasite Seen Seen 2:24 PM CDT CEN[facility]AL LAB Result PMN's Many Present 12/04/2019 [facility] 2:24 PM CDT [facility]AL LAB Specimen Anatomical Collection Method Collection Time Receive d Time (Source) Location / / Volume Laterality Stool 12/02/2019 4:30 PM 0 8:24 CDT AM CDT Eusebio Haines MD LAB_1 Performing Organization Address City/[facility] Phon e Number [facility] [address] [address] Enteric Parasite PCR (Giardia, Cryptosporidium, E.histolytica) (12/02/2019 4:30 PM CDT) [facility] Time Signature Cryptosporidium Not Not 12/05/2019 [facility] sp. DNA (C hominis Detected Detected 2:22 PM CENTRAL LAB and C parvum) CDT Entamoeba Not Not 12/05/2019 [facility] histolytica DNA Detected Detected 2:22 PM [facility]ENTRAL LAB CDT Giardia duodenalis Not Not 12/05/2019 [facility] (Giardia lamblia) Detected Detected 2:22 PM CENTRAL LAB DNA CDT Specimen Anatomical Collection Method Collection Time Receive d Time (Source) Location / / Volume Laterality Stool 12/02/2019 4:30 PM 0 8:24 CDT AM CDT Narrative [facility] - 12/05/2019 2:22 PM CDT Methodology: Test performed by qualitative real-time PCR If stool PCR assays are negative and anushka rrhea persists for more than 14 days, consider stool examination for Ova and Parasites per Smart Set Eusebio Haines MD LAB_1 Performing Organization Address City/State/ZIP Code Phon e Number [facility] [address] [address] documented in this encounter Visit Diagnoses Diagnosis Ulcerative rectosigmoiditis with rectal bleeding (HRC) Immunosuppressed status (HRC) Unspecified disorder of immune mechanism documented in this encounter Care Teams Dye Machine Tender Relationship Specialty Start Date End Date Sheeba Castillo, AREA INTELLIGENCE TECHNICIAN, BAND SAW MARKER PCP - General Nurse Practitioner 07/20/16 [address] [place] [address] documented as of this encounter
--- OUTSIDE RECORDS SUMMARY | 2022-03-20 16:08 | XMS_ITS | Encounter Summary ---
:1975 Author Organization [employer] Address [address] [place] [address] Care Team Providers Name Role Phone Sheeba Castillo APRN, SIERRA Primary Care Provider [phone] Reason for Visit Reason Comments Refill PIRMELLA 1/35 1-35 MG-MCG ta risa [Pharmacy Med Name: Pirmella 1/35 Oral Tablet 1-35 MG-MCG] Encounter Details Date Type Department Care Team Description 10/21/2019 Refill [facility] Iggy Hernandez MD Refill (PIRMELLA 1/[address] Reyna 1-35 MG-MCG tablet [address] [place], [place] [Pharmacy Med Name: [place] [address] Pirmella 1/35 Oral [phone] (Wo rk) Tablet 1-35 MG-MCG]) Social History Tobacco Use Types Packs/Day Years [...] at Date Recorded 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 Patient overdue for Qualifying visit. (new pharmacy requested) Last qualifying visit: 12/17/2017 (with IGGY HERNANDEZ) (A more recent visit (in Family Practice ? with ESTEBAN KRISHNAMURTHY) was found ? Next scheduled visit: None Review pended order for accuracy and sign if appropriate, Document if appointment is needed for further refills and Route to Front Line to schedule appointment Requested Prescriptions Pending Prescriptions Disp Refills ??? PIRMELLA 1/35 1-35 MG-MCG tablet [Pharmacy Med Name: Pirmella 1/35 Oral Tablet 1-35 MG-MCG] 112 Tablet 0 Sig: TAKE ONE TABLET BY MOUTH ONE TIME DAILY CONTINOUSLY. Interface, Out Surescripts Prov Query - 10/21/2019 7:02 AM CDT PIRMELLA 1/35 1-35 MG-MCG tablet [Pharmacy Med Name: Pirmella 1/35 Oral Tablet 1-35 MG-MCG] Medication started: 03/03/2014 Last ordered by IGGY HERNANDEZ (306 days ago) QTY: 112, Refills: 3, Sig: take 1 tablet by mouth daily. takes continuously (changed) -> This medication may not have been authorized by the requested provider. -> The patient is requesting a renewal from a different pharmacy. -> Unable to determine if patient is due for a renewal, please review. -> The requested sig has changed from the last order. -> An office visit is overdue (performed over 22 months ago, required every 12 months). Last qualifying visit: 12/17/2017 (with IGGY HERNANDEZ) (A more recent visit (in Family Practice with ESTEBAN KRISHNAMURTHY) was found) Next scheduled visit: None SBP: 132 mm Hg on 05/13/2019 DBP: 83 mm Hg on 05/13/2019 Powered by [employer], Reference: [id number], 10/21/2019 7:02:14 AM CDT, Pool: DEANDRA FP REFILL ([id number]) documented in this encounter Plan of Treatment Upcoming Encounters Date Type Specialty Care Team Description 05/05/2022 Appointment Chemo Therapy/Infusion Services 09/15/2022 Telemedicine Gastroenterology Eusebio Haines MD [address] [place], [place] [address] (Wo rk) documented as of this encounter Visit Diagnoses Diagnosis Well adult exam Routine general medical examination at a health care facility documented in this encounter Care Teams Industrial Refrigeration Mechanic Relationship Specialty Start Date End Date Sheeba Castillo, WIRE SETTER, SLOT SHIFT SUPERVISOR PCP - General Nurse Practitioner 07/20/16 [address] [place]h [id number] documented as of this encounter
--- OUTSIDE RECORDS SUMMARY | 2022-03-20 16:08 | XMS_ITS | Encounter Summary ---
:1975 Author Organization [employer] Address [address], [place] [address] Care Team Providers Name Role Phone Sheeba Castillo APRN, CNP Primary Care Provider [phone] Reason for Visit Reason Comments Infusion Infusion Therapy Plan (Routine) - Authorized Specialty Diagnoses / Procedures Referred By Contact Refer red To Contact Diagnoses Other ulcerative colitis with rectal bleeding (HRC) Eusebio Haines MD [id number] [address] [facility] [address] 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 with rectal bleeding (HRC) Phentermine HCl 30 MG Take 30 mg by 0 03/15/2020 capsule mouth daily. Phentermine HCl 37.5 MG TAKE 1 CAPSULE BY 90 Capsule 0 06/1303/15/2020 capsule MOUTH DAILY. PIRMELLA 1-35 TAKE ONE TABLET BY 112 Tablet [...] encounter Progress Notes Nadia Thompson RN - 12/03/2019 2:30 PM CDT Pt here for entyvio infusion. Pt states still having diarrhea. Pt had trough done 11/30/09 still pending results. Pt scheduled for 6 weeks instead of 8. Ok'd by Dr Haines to proceed with treatment today. Pt tolerated infusion well with no issues. Discharged in stable condition. Follows up with this week. documented in this encounter Plan of Treatment Upcoming Encounters Date Type Specialty Care Team Description 05/05/2022 Appointment Chemo Therapy/Infusion Services 09/15/2022 Telemedicine Gastroenterology Eusebio Haines MD [address] [place] [address] (Wo rk) documented as of this encounter Visit Diagnoses Diagnosis Other ulcerative colitis with rectal ble letig (HRC) - Primary documented in this encounter Administered Medications Inactive Administered Medications - up to 3 most recent administrations Medication Order MAR Action Action Date Dose Rate Site acetaminophen (TYLENOL) tablet 975 Given 12/03/2019 2:48 PM CDT 975 mg mg 975 mg, Oral, ONCE, On Sun12/03/19 at 1500, For 1 dose vedolizumab (Entyvio) 300 mg in sodium Started 12/03/2019 2:56 PM CDT 300 mg chloride 0.9 % 250 mL infusion 300 mg, Intravenous, Administer over 30 Minutes, ONCE, On Sun12/03/19 at 1515, For 1 dose, BIOTHERAPY - Must be given by chemotherapy/biotherapy certified documented in this encounter Care Teams Reverberatory Skimmer Relationship Specialty Start Date End Date Sheeba Castillo, DESULFURIZER OPERATOR, PRODUCTION TEAM ADVISOR PCP - General Nurse Practitioner 07/20/16 [address] [place] [address] documented as of this encounter
--- OUTSIDE RECORDS SUMMARY | 2022-03-20 16:08 | XMS_ITS | Encounter Summary ---
:1975 Author Organization [facility] Address [address], [place] [address] Care Team Providers Name Role Phone Sheeba Castillo APRN, SIERRA Primary Care Provider [phone] Encounter Details Date Type Department Care Team Description 09/01/2019 Lab Visit [facility] Left sided ulcerative (chron ic) colitis (HRC); [address] Other ulcerative colitis wit h rectal bleeding (HRC); [place] [address] History of Clostridioides di fficile colitis; [phone] Ulcerative rect osigmoiditis with rectal bleeding (HRC) Social History Tobacco Use Types Packs/Day Years [...] at Date Recorded 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 INFLIXIMAB Routine 09/01/2019 11:03 Left sided ulcerative Re sults for this ACTIVITY WITH AM CDT (chronic) coliti s (HRC) procedure are in REFLEX TO ANTIBODY Other ulcerative colit is the results with rectal bleeding section . (HRC) History of Clostridioides difficile colitis HCG,QUALITATIVE, Routine 09/01/2019 11:03 Left sided ulcerativ e Results for this SERUM AM CDT (chronic) coliti s ([facility]) procedure are in Other ulcerative colitis the results with rectal bleeding section . (HRC) History of Clostridioides difficile colitis documented in this encounter Results Test Screen Urine (09/01/2019 11:11 AM CDT) P athologist Signature HCG, Urine Negative Negative 09/01/2019 [facility] 11:32 AM CDT LABORATORY Specimen Anatomical Collection Method Collection Time Receive d Time (Source) Location / / Volume Laterality Urine Non-blood 09/01/2019 11:11 09/01/2019 Collection / AM CDT 11:11 AM CDT Unknown Wes Parada MD LAB_1 Performing Organization Address City/[facility]/ZIP Code Phon e Number [facility] [address] [place] [address] HCG, Quant. - Test Screen Blood (09/01/2019 11:03 AM CDT) Analysis Performed At Patho logist Time Signature HCG, Serum Negative Negative 09/01/2019 [facility] Qual 11:15 AM CDT LABORATORY Specimen Anatomical Collection Method / Collection Time Recei peña Time (Source) Location / Volume Laterality Blood Venipuncture / 09/01/2019 11:03 0 Unknown AM CDT 11:03 AM CDT Eusebio Haines MD LAB_1 Performing Organization Address City/State/ZIP Code Phon e Number [facility] [address] [place] [address] Infliximab Activity with Reflex to Antibody (09/01/2019 11:03 AM CDT) Analysis Performed At [facility] Time Signature Infliximab 15.74 ug/mL 09/02/2019 [facility] Activity 3:17 PM CDT LABORATORIES Comment: INTERPRETIVE INFORMATION: Infliximab or biosimilar w/Rflx to ?N Ab This test measures the capacity of infli ximab to neutralize TNF activity. If infliximab is not detected, testing for neutralizing antibodies (NAb) will be performed. Infl iximab NAb titer is obtained by identifying the minimal seru m dilution at which blocking of infliximab activity is no lo nger observed. This test is used to evaluate secondary response failures to infliximab therapy. Secondary response f ailure is defined as loss of clinical response after initial impro vement of clinical signs and symptoms. Therapeutic decision shoul d rest on both the clinical response and the knowledge of t he fate of the drug including the emergence of ?? immunogeni city in individual patients. Circulating infliximab levels have been shown to vary considerably between patients. These differences rela te to route and frequency of administration and patient-related fe atures such as age, gender, weight, drug metabolism, and con comitant medications such as methotrexate and other immunosuppress ants. Clinical Interpretation of Infliximab wi th Reflex to Antibody Testing Result in the Context of Treatme nt Failure Infliximab ? Infliximab ? Interpretation Activity ? Neutralizing ? Antibody Titer ? Not Detected ?? Not Detected ? Hoskins b-therapeutic dose. A ?higher dosage of ?infliximab or shortening ?the dosing interval may ?be appropriate. Not Detected ?? Detected ? Likely immune-mediated ?treatment failure. A ?change to another ?anti-TNF drug may be ?appropriate. Detected - ? N/A ?Sub-therapeutic dose. A Below Target* ? higher dosage of ?infliximab or shortening ?the dosing interval may ?be appropriate. Detected - ? N/A ?A change to another type Above Target* ? of therapy (not targeting ?TNF) may be appropriate ?if patient is not ?responding. * AGA recommended target trough concentr ation for reactive monitoring of patients with active IBD o n maintenance therapy is 5 ug/mL or greater for infliximab (Selvin younger JD et al, Gastroenterology 2017; 153:827-834). The AGA makes no recommendation regarding the use of rout ine, proactive therapeutic drug monitoring in adults with quiescent IBD treated with anti-TNF agents. Test developed and characteristics deter mined by [facility]. See Compliance Statement B : [employer] EER Infliximab Activity See Note 09/02/2019 3:17 PM CDT [facility] Comment: Access [employer] Report using either link below: -Direct access: [email or web address] -Enter Username, Password: [email or web address] Username: [email or web address] Password: [email or web address] Performed by [facility], [address] [place] [address] [email or web address], Romulo Pritchett MD, Lab. Director Specimen Anatomical Collection Method / Collection Time Recei peña Time (Source) Location / Volume Laterality Blood Venipuncture / 09/01/2019 11:03 0 Unknown AM CDT 11:03 AM CDT Eusebio Haines MD LAB_1 Performing Organization Address City/State/ZIP Code Phon e Number [facility] [address] [place], [place] [phone] documented in this encounter Visit Diagnoses Diagnosis Left sided ulcerative (chronic) colitis (HRC) Left sided ulcerative (chronic) colitis Other ulcerative colitis with rectal ble eding (HRC) History of Clostridioides difficile coli tis Ulcerative rectosigmoiditis with rectal bleeding (HRC) documented in this encounter Care Teams Film Technician Relationship Specialty Start Date End Date Sheeba Castillo, ROUTE RIDER, HYDROCHLORIC AREA SUPERVISOR PCP - General Nurse Practitioner 07/20/16 [address] [place] [id number] documented as of this encounter
--- OUTSIDE RECORDS SUMMARY | 2022-03-20 16:08 | XMS_ITS | Encounter Summary ---
:1975 Author Organization [employer] Address [address], [place] [address] Care Team Providers Name Role Phone Sheeba Castillo APRN, SIERRA Primary Care Provider [phone] Reason for Referral (Routine) - Closed Specialty Diagnoses / Procedures Referred By Contact Refer red To Contact Diagnoses Left sided ulcerative (chronic) colitis (HRC) Other ulcerative colitis with rectal bleeding (HRC) History of Clostridioides difficile colitis Eusebio Haines MD Procedures Flexible Sigmoidoscopy [address] [place], [place] [address] Referral ID Status Reason Start Date Expiration Date Visits Requ ested Visits Authorized [id number] Closed 08/29/2019 11/27/2020 1 1 Reason for Visit (Routine) - Closed Specialty Diagnoses / Procedures Referred By Contact Refer red To Contact Diagnoses Left sided ulcerative (chronic) colitis (HRC) Other ulcerative colitis with rectal bleeding (HRC) History of Clostridioides difficile colitis Eusebio Haines MD Procedures Flexible Sigmoidoscopy [address] [place], [place] [address] Referral ID Status Reason Start Date Expiration Date Visits Requ ested Visits Authorized [id number] Closed 08/29/2019 11/27/2020 1 1 Encounter Details Date Type Department Care Team Description 09/01/2019 [facility] Wes Parada Ulcerative re ctosigmoiditis with rectal bleeding (HRC) (Primary Dx); Encounter Gastroenterology JMD Left sided ulcerative (chronic) colitis (HRC); Endoscopy Procedures [address] Other ulcerative colitis wit h rectal bleeding (HRC); [address] History of Clostridio[place] [address] [facility] [phone] [place] [address] Social History Tobacco Use Types Packs/Day Years [...] at Date Recorded 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 0 02/15/2012 Antacid 1000 MG Reported on 08/14/2016 Multiple Vitamin Take 1 tablet by 0 11/14/2011 (MULTI-VITAMIN OR) mouth daily (every 24 hours). cholestyramine Take 4 g by mouth 810 g 3 08/28/201803/2020 (QUESTRAN) 4 GM/DOSE daily. Ok to powder increase to twice daily if needed. Separate at least 2 hours from other medications. dicyclomine (BENTYL) TAKE 1 TABLET BY 360 Tablet 3 8 04/21/2020 20 MG tablet MOUTH 4 TIMES DAILY NEEDED hydrocortisone Insert 100 mg 30 Each 11 08/15/2019 020 (CORTENEMA) 100 rectally daily at MG/60ML enema bedtime. hydrocortisone Insert 1 30 Each 0 07/15/2019 02/27/2020 (HYDROCORTISONE 25 Suppository MG) 25 MG suppository rectally daily at bedtime. mesalamine (CANASA) Insert 1 30 Suppository 2 07/01/2019 0 02/27/2020 1000 MG Suppository suppositoryIndication rectally daily at s: Ulcerative bedtime. pancolitis with rectal bleeding (HRC) norethindrone-eth Take 1 Tablet by 112 Tablet 3 12/19/2018 0 10/25/2019 estradiol (DASETTA mouth daily. Takes ) 1-35 MG-MCG continuously tabletIndications: Well adult exam Phentermine HCl 30 MG Take 30 mg by mouth 0 03/15/2020 capsule daily. Phentermine HCl 37.5 TAKE 1 CAPSULE BY 90 Capsule 0 06/13/20 19 03/15/2020 MG capsule MOUTH DAILY. predniSONE 4 tabs daily for 2 112 Tablet 0 08/25/20192019 (DELTASONE) 10 MG wk, 3 tabs daily tablet for 1 wk, 2 tabs daily for 1 wk, then decrease by 1/2 tab weekly until done triamcinolone Apply topically two 80 g 0 07/03/2019 acetonide (KENALOG) times daily as 0.1 % ointment needed. To itchy bumps on trunk and extremities triamterene-hydrochlo TAKE 1 TABLET BY 90 Tablet 3 03/13/20 19 02/27/2020 rothiazide MOUTH DAILY. (MAXZIDE-25) 37.5-25 MG tabletIndications: Essential hypertension (HRC) documented as of this encounter Progress Notes Lenora Schaffer RN - 09/01/2019 11:30 AM CDT Vitals charted per department protocol.Patient tolerated procedure well. Мария Kim RN - 09/01/2019 11:30 AM CDT Patient alert, oriented. Denies pain at this time. Tolerating liquids. Discussed discharge teaching.Patient/family given handouts. Verbalized understanding. documented in this encounter Procedure Notes Wes Parada MD - 09/01/2019 11:41 AM CDT Patient Name: Idania Duarte Procedure Date: 09/01/2019 11:41 AM Date of : 1975 Admit Type: Outpatient Age: 44 Gender: Female Note Status: Finalized Attending MD: Wes Parada MD Procedure: Flexible Sigmoidoscopy Indications: High risk colon cancer surveillance: Ulcerative left sided colitis Providers: Wes Parada MD, Lenora Schaffer RN Referring MD: Eusebio Haines MD Medicines: Midazolam 2 mg IV, Fentanyl 100 micrograms IV Complications: No immediate complications. Procedure: After obtaining informed consent, the scope was passed under direct vision. The [id number] was introduced through the anus and advanced to the splenic flexure. The flexible sigmoidoscopy was accomplished without difficulty. The patient tolerated the procedure well. The quality of the bowel preparation was not adequate to identify polyps 6 mm and larger in size. Findings: Inflammation was found in a continuous and circumferential pattern from the sigmoid colon to the splenic flexure. This was graded as Tam Score 1-2 with less severe inflammation in the sigmoid colon, more severe in the proximal descending colon. There was scarring with small pseudopolyps in the splenic flexure and proximal descending colon. When compared to the previous examination, the findings are worsened. Biopsies were taken with a cold forceps for histology from the descending colon. Inflammation was found in a continuous and circumferential pattern in the rectum. This was graded as Tam Score 3 (severe, with spontaneous bleeding, ulcerations), and when compared to the previous examination, the findings are unchanged. Biopsies were taken with a cold forceps for histology. Moderate Sedation: Moderate (conscious) sedation was administered by the endoscopy nurse and supervised by the endoscopist. The patient's oxygen saturation, heart rate, blood pressure and response to care were monitored. Total physician intraservice time was 11 minutes. Impression: - Preparation of the colon was inadequate. - Mild/moderate (Tam Score 1-2) left-sided ulcerative colitis, worsened since the last examination. Biopsied. - Severe (Tam Score 3) left-sided ulcerative colitis, unchanged since the last examination. Biopsied. Recommendation: - Await pathology results. - Return to GI clinic as previously scheduled. Procedure Code(s): --- Professional --- 07928, Sigmoidoscopy, flexible; with biopsy, single or multiple G0500, Moderate sedation services provided by the same physician or other qualified health small animal caretaker performing a gastrointestinal endoscopic service that sedation supports, requiring the presence of an independent trained observer to assist in the monitoring of the patient's level of consciousness and physiological status; initial 15 minutes of intra-service time; patient age 5 years or older (additional time may be reported with 00779, as appropriate) Diagnosis Code(s): --- Professional --- K51.50, Left sided colitis without complications CPT copyright 2018 [employer]. All rights reserved. The codes documented in this report are preliminary and upon lead sales consultant review may be revised to meet current compliance requirements. Wes Parada MD 09/01/2019 12:29:01 PM This document has been electronically signed. Number of Addenda: 0 Note Initiated On: 09/01/2019 11:41 AM Endoscopy Report documented in this encounter Plan of Treatment Upcoming Encounters Date Type Specialty Care Team Description 05/05/2022 Appointment Chemo Therapy/Infusion Services 09/15/2022 Telemedicine Gastroenterology Eusebio Haines MD [address] [place], [place] [address] (Wo rk) documented as of this encounter Procedures Procedure Name Priority Date/Time Associated Diagnosis Comme nts SURGICAL Routine 09/01/2019 12:04 Ulcerative Results for this PATHOLOGY, GI PM CDT rectosigmoiditis with proce dure are in rectal bleeding (HRC) the re sults section. ENDOSCOPY, SIGMOID Routine 09/01/2019 11:41 Left sided ulcerat gregory Results for this AM CDT (chronic) coliti s (HRC) procedure are in Other ulcerative colitis the results with rectal bleeding section . (HRC) History of Clostridioides difficile colitis documented in this encounter Results Surgical Path - GI (09/01/2019 12:04 PM CDT) Component Value Ref Test Analysis Performed At [facility] gist Range Method Time Signature Case Report Surgical Pathology ?Case: [id number] ? 09/03/2019 [facility] Authorizing Provider: ??Deion eldridge, Wes Love MD ? Collected: ? 09/01/2019 12:04 PM ? 12:45 PM LABORATOR Y Ordering Location: ? [facility] ? Received: ?09/01/2019 12:50 PM ? CDT ? Gastroenterology Endoscopy ? Procedures ? Pathologist: ? Ramiro Renae MD ? Specimens: ?? A) - Colon, de scending ? B) - Jay n, rectum ? FINAL A. Colon, descending, biopsy: 09/03/2019 [facility] Electronically DIAGNOSIS ?? No diagnostic abnormality 12:45 PM L ABORATORY signed by DAYAMI RenaeT Ramiro Lowe MD on B. Colon, rectum, biopsy: 09/03/2019 at ?? Diffuse chronic active colitis with ulceration 12:45 PM Comment: No granulomas or dysplasia identified Gross A. The specimen is received in formalin and labeled with the patient's name and Colon, descending.?? The specimen consists of three dawn-white irregular soft tissue fragments, averaging 0.2 cm. The spe 09/03/2019 [facility] Description cimen is filtered and entirely submitted in one casset te. 12:45 PM LABORATORY CDT B. The specimen is received in formalin and labeled with the patient's name and Colon, rectum.?? The specimen consists of four dawn-white irregular soft tissue fragments, averaging 0.2 cm. The specimen is filtered and entirely submitted in one cassette. AW Clinical Hx Ulcerative Colitis 09/03/[address] Information 12:45 PM LABORATORY CDT Microscopic Microscopic 09/03/2019 [facility] Description examination is 12:45 PM LABORATORY performed. CDT Embedded 09/03/2019 [facility] Images 12:45 PM LABORATORY CDT Specimen Anatomical Collection Method Collection Time Receive d Time (Source) Location / / Volume Laterality Tissue COLON STRUCTURE / 09/01/2019 12:04 2019 Unknown PM CDT 12:50 PM CDT Tissue specimen COLON STRUCTURE / 09/01/2019 12:04 02/2020 (specimen) Unknown PM CDT 12:50 PM CDT Wes Parada MD LAB PATHOLOGY Performing Organization Address City/State/ZIP Code Phon e Number [facility] [address] [place] [address] Flexible Sigmoidoscopy (09/01/2019 11:41 AM CDT) Specimen (Source) Anatomical Collection Method Collection Time Re ceived Time Location / / Volume Laterality 09/01/2019 11:41 AM CDT Narrative [facility]) - 09/01/2019 11:41 AM CDT Patient Name: Idania Duarte Procedure Date: 09/01/2019 11:41 AM Date of : 1975 Admit Type: Outpatient Age: 44 Gender: Female Note Status: Finalized Attending MD: Wes Parada MD Procedure: ? Flexible Sigmo idoscopy Indications: ? High risk colon cancer surveillance: ? Ulcerativ e left sided colitis Providers: ? Wes eldridge MD, Lenora Schaffer, ? RN Referring MD: ?Eusebio Haines MD Medicines: ? Midazolam 2 mg IV, Fentanyl 100 ? microgram s IV Complications: ? No immediate com plications. Procedure: ? After obtainin g informed consent, the ? scope was passed under direct vision. ? The [facility] 190DL-06 was introduced ? through t he anus and advanced to the ? splenic f lexure. The flexible ? sigmoidos copy was accomplished ? without d ifficulty. The patient ? tolerated the procedure well. The ? quality o f the bowel preparation was ? not adequ ate to identify polyps 6 mm ? and large r in size. Findings: ? Inflammation was found in a eduardo nuous and ? circumferential pattern from the sigmoid colon to the ? splenic flexure. This was graded as Tam Score 1-2 ? with less severe inflammation in the sigmoid colon, ? more severe in the proximal desce nding colon. There ? was scarring with small pseudopol yps in the splenic ? flexure and proximal descending c olon. When compared ? to the previous examination, the findings are ? worsened. Biopsies were taken wit h a cold forceps for ? histology from the descending col on. ? Inflammation was found in a eduardo nuous and ? circumferential pattern in the re ctum. This was ? graded as Tam Score 3 (severe, w ith spontaneous ? bleeding, ulcerations), and when compared to the ? previous examination, the finding s are unchanged. ? Biopsies were taken with a cold f orceps for histology. Moderate Sedation: ? Moderate (conscious) sedation was administered by the ? endoscopy nurse and supervised by the endoscopist. ? The patient's oxygen saturation, heart rate, blood ? pressure and response to care wer e monitored. Total ? physician intraservice time was 1 1 minutes. Impression: ?- Preparation of the colon was ? inadequat e. ? - Mild/mo derate (Tam Score 1-2) ? left-side d ulcerative colitis, ? worsened since the last examination. ? Biopsied. ? - Severe (Tam Score 3) left-sided ? ulcerativ e colitis, unchanged since ? the last examination. Biopsied. Recommendation: ?- Await patholog y results. ? - Return to GI clinic as previously ? scheduled . Procedure Code(s): ?? --- Professional - -- ? 92439, Si gmoidoscopy, flexible; with ? biopsy, s marcos or multiple ? G0500, Mo derate sedation services ? provided by the same physician or ? other christophe lified health care ? professio nal performing a ? gastroint estinal endoscopic service ? that radha tion supports, requiring the ? presence of an independent trained ? observer to assist in the monitoring ? of the mark valderramant's level of ? conscious ness and physiological ? status; i nitial 15 minutes of ? intra-ser vice time; patient age 5 ? years or older (additional time may ? be report [place] [address], as ? appropria te) Diagnosis Code(s): ?? --- Professional - -- ? K51.50, L eft sided colitis without ? complicat ions CPT copyright 2018 [employer]. All rights reserved. The codes documented in this report are preliminary and upon lead sales consultant review may be revised to meet current compliance requirements. Wes Parada MD 09/01/2019 12:29:01 PM This document has been electronically si gned. Number of Addenda: 0 Note Initiated On: 09/01/2019 11:41 AM ? Endoscopy Report Procedure Note Wes Parada MD - 09/01/2019Formatt ing of this note might be different from the original. Patient Name: Idania Duarte Procedure Date: 09/01/2019 11:41 AM Date of : 1975 Admit Type: Outpatient Age: 44 Gender: Female Note Status: Finalized Attending MD: Wes Parada MD Procedure: Flexible Sigmoidoscopy Indications: High risk colon cancer surv eillance: Ulcerative left sided colitis Providers: Wes Paraad MD, Scotty Schaffer, RN Referring MD: Eusebio Haines MD Medicines: Midazolam 2 mg IV, Fentanyl 1 00 micrograms IV Complications: No immediate complication s. Procedure: After obtaining informed cons ent, the scope was passed under direct vision. The [id number] was introduced through the anus and advanced to the splenic flexure. The flexible sigmoidoscopy was accomplished without difficulty. The patient tolerated the procedure well. The quality of the bowel preparation was not adequate to identify polyps 6 mm and larger in size. Findings: Inflammation was found in a continuous and circumferential pattern from the sigmoi d colon to the splenic flexure. This was graded as May o Score 1-2 with less severe inflammation in the si gmoid colon, more severe in the proximal descending colon. There was scarring with small pseudopolyps in the splenic flexure and proximal descending colon. When compared to the previous examination, the findin gs are worsened. Biopsies were taken with a co ld forceps for histology from the descending colon. Inflammation was found in a continuous and circumferential pattern in the rectum. This was graded as Tam Score 3 (severe, with sp ontaneous bleeding, ulcerations), and when compar ed to the previous examination, the findings are unchanged. Biopsies were taken with a cold forceps for histology. Moderate Sedation: Moderate (conscious) sedation was admin istered by the endoscopy nurse and supervised by the e ndoscopist. The patient's oxygen saturation, heart rate, blood pressure and response to care were solitario tored. Total physician intraservice time was 11 emre carrie. Impression: - Preparation of the colon w as inadequate. - Mild/moderate (Tam Score 1-2) left-sided ulcerative colitis, worsened since the last examination. Biopsied. - Severe (Tam Score 3) left-sided ulcerative colitis, unchanged since the last examination. Biopsied. Recommendation: - Await pathology result s. - Return to GI clinic as previously scheduled. Procedure Code(s): --- Professional --- 39206, Sigmoidoscopy, flexible; with biopsy, single or multiple G0500, Moderate sedation services provided by the same physician or other qualified health small animal caretaker performing a gastrointestinal endoscopic service that sedation supports, requiring the presence of an independent trained observer to assist in the monitoring of the patient's level of consciousness and physiological status; initial 15 minutes of intra-service time; patient age 5 years or older (additional time may be reported with 75513, as appropriate) Diagnosis Code(s): --- Professional --- K51.50, Left sided colitis without complications CPT copyright 2018 [employer]. All rights reserved. The codes documented in this report are preliminary and upon lead sales consultant review may be revised to meet current compliance requirements. Wes Parada MD 09/01/2019 12:29:01 PM This document has been electronically si gned. Number of Addenda: 0 Note Initiated On: 09/01/2019 11:41 AM Endoscopy Report Eusebio Haines MD PN GI PROCEDURE ORDERABLES Performing Organization Address City/State/ZIP Code Phon e Number [facility]) [facility] ([facility]) [place], [place] Test Screen Urine (09/01/2019 11:11 AM CDT) P athologist Signature HCG, Urine Negative Negative 09/01/2019 [facility] 11:32 AM CDT LABORATORY Specimen Anatomical Collection Method Collection Time Receive d Time (Source) Location / / Volume Laterality Urine Non-blood 09/01/2019 11:11 09/01/2019 Collection / AM CDT 11:11 AM CDT Unknown Wes Parada MD LAB_1 Performing Organization Address City/[facility]/ZIP Code Phon e Number [facility] [address] [place] [address] documented in this encounter Visit Diagnoses Diagnosis 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 Left sided ulcerative (chronic) colitis (HRC) Left sided ulcerative (chronic) colitis Other ulcerative colitis with rectal ble eding (HRC) History of Clostridioides difficile coli tis documented in this encounter Administered Medications Inactive Administered Medications - up to 3 most recent administrations Medication Order MAR Action Action Date Dose Rate Site fentaNYL (SUBLIMAZE) injection Given 09/01/2019 12:06 PM CDT 100 mcg 25-100 mcg 25-100 mcg, Intravenous, PRN, Pain, moderate sedation, Starting on 09/01/19 at 1146, Until Sun09/22/19 at 0204, Administer in 25-100 mcg increments as directed by endoscopy procedure MD up to a total of 200 mcg. midazolam (VERSED) injection 0.5-2 mg Given 09/01/2019 12:07 PM CDT 2 mg 0.5-2 mg, Intravenous, PRN, Sedation, Starting on Sun09/01/19 at 1146, Until Sun09/22/19 at 0204, Administer in 0.5 - 2 mg increments as directed by endoscopy procedure MD up to a total of 6 mg sodium chloride 0.9% injection 10-60 mL Given 09/01/2019 12:07 PM CDT 10 mL 10-60 mL, Intravenous, PRN, Line Patency, Other, Line Care, Starting on Sun09/01/19 at 1146, Until Sun09/22/19 at 0204, For an INT flush, flush with at [...] Guide. documented in this encounter Care Teams Admeasurer Relationship Specialty Start Date End Date Sheeba Castillo APRN, INSOLE DEPARTMENT WORKER PCP - General Nurse Practitioner 07/20/16 [address] [address] [place] [address] documented as of this encounter
--- OUTSIDE RECORDS SUMMARY | 2022-03-20 16:08 | XMS_ITS | Encounter Summary ---
:1975 Author Organization [employer] Address [address], [place] [address] Care Team Providers Name Role Phone Sheeba Castillo APRN, WEIGHER AND GRADER Primary Care Provider Reason for Visit Reason Comments Refill Encounter Details Date Type Department Care Team Description 12/15/2019 [facility] [address] Sravan Haines MD Refill Gastroenterology [address] 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 Requested Prescriptions Pending Prescriptions Disp Refills ??? budesonide (ENTOCORT EC) 3 MG capsule [Pharmacy Med Name: Budesonide Oral Capsule Delayed Release Particles 3 MG] 90 Capsule 0 Sig: TAKE THREE CAPSULES BY MOUTH DAILY documented in this encounter Plan of Treatment Upcoming Encounters Date Type Specialty Care Team Description 05/05/2022 Appointment Chemo Therapy/Infusion Services 09/15/2022 Telemedicine Gastroenterology uEsebio Haines MD [address] [place], [place] [id number] (Wo rk) documented as of this encounter Visit Diagnoses Diagnosis Ulcerative rectosigmoiditis with rectal bleeding (HRC) documented in this encounter Care Teams Contract Management Specialist Relationship Specialty Start Date End Date Sheeba Castillo, LAB RN, WEIGHER AND GRADER PCP - General Nurse Practitioner 07/20/16 [address] [place] [id number] documented as of this encounter
--- OUTSIDE RECORDS SUMMARY | 2022-03-20 16:08 | XMS_ITS | Encounter Summary ---
:1975 Author Organization [employer] Address [address] [place] [address] Care Team Providers Name Role Phone Sheeba Castillo APRN, CLERK ENTRY LEVEL Primary Care Provider [phone] Reason for Visit Reason Comments Appt. Needed Encounter Details Date Type Department Care Team Description 11/27/2019 Telephone [facility] Eusebio Pak MD Appt. Needed ENDOSCOPY [address] 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 Eusebio Haines MD - 12/10/2019 8:27 AM CDT I have recently been in contact with this patient in regards to her ulcerative colitis and essentially a nonresponse to multiple different treatments. As a part of the assessment for this, several tests including stool tests were ordered on November 26 of this year. One of them was a Clostridium difficile toxin assay ordered on 11/27/2019. Amongst the stool tests ordered, most of them have been performed and resulted. However, the C diff still appears as a future order. There is a ???container test?? result on 11/28/2019. Can someone confirm that thepatient's submitted a stool sample for C diff? If that was the case, was at not run because the stool was formed? Please help clarify as this is critical for this patient's management. Thanks. Lenora Schaffer RN - 11/27/2019 2:05 PM CDT Left message to call back Eusebio Haines MD - 11/27/2019 12:24 PM CDT Please see my recent message to the patient via her [employer] account. Please arrange for the patient to be scheduled for testing (blood work and stool tests) to be completed before her vedolizumab infusion next Sunday. Thanks. documented in this encounter Plan of Treatment Upcoming Encounters Date Type Specialty Care Team Description 05/05/2022 Appointment Chemo Therapy/Infusion Services 09/15/2022 Telemedicine Gastroenterology Eusebio Haines MD [address] [place] [address] (Wo rk) documented as of this encounter Results Cyclospora stain for parasites (12/02/2019 7:51 PM CDT) [facility] sofatutor Method Time Signature Cyclospora Negative Negative 12/04/2019 [facility] Stain 10:21 AM CDT LABORATORIES Comment: A single negative result does not rule o ut the possibility of a parasitic infection. TEST INFORMATION: The parasitology stain is a modified acid fast stain that detects Cryptosporidium, Cycl ospora and Cystoisospora. Performed by [facility], [address] [place] [id number] www.[email or web address], Romulo Pritchett MD, Lab. Director Specimen Anatomical Collection Method Collection Time Receive d Time (Source) Location / / Volume Laterality Stool 12/02/2019 7:51 PM 0 8:24 CDT AM CDT Eusebio Haines MD LAB_1 Performing Organization Address [facility] Phon e Number [employer] [address] [place] [address] [phone] Microsporidia stain (12/02/2019 7:51 PM CDT) [facility] Method Time Signature Microsporidia Negative Negative 12/04/2019 [facility] Stain 2:54 PM CDT LABORATORIES Comment: A single negative result does not rule o ut the possibility of a microsporidia infection. Performed by [facility], [address] [place] [address] www.[email or web address], Romulo Pritchett MD, Lab. Director Specimen Anatomical Collection Method Collection Time Receive d Time (Source) Location / / Volume Laterality Stool 12/02/2019 7:51 PM 0 8:24 CDT AM CDT Eusebio Haines MD LAB_1 Performing Organization Address City/[facility] Phon e Number [facility] [address] [phone] Enteric Parasite PCR (Giardia, Cryptosporidium, E.histolytica) (12/02/2019 4:30 PM CDT) [facility] sofatutor Method Time Signature Cryptosporidium Not Not 12/05/2019 [facility] S sp. DNA (C hominis Detected Detected 2:22 PM CENTRAL LAB and C parvum) CDT Entamoeba Not Not 12/05/2019 [facility] histolytica DNA Detected Detected 2:22 PM CENTRAL LAB CDT Giardia duodenalis Not Not 12/05/2019 [facility] NERS (Giardia lamblia) Detected Detected 2:22 PM CENTRAL LAB DNA CDT Specimen Anatomical Collection Method Collection Time Receive d Time (Source) Location / / Volume Laterality Stool 12/02/2019 4:30 PM 0 8:24 CDT AM CDT Narrative [facility] [place] LAB - 12/05/2019 2:22 PM CDT Methodology: Test performed by qualitative real-time PCR If stool PCR assays are negative and anushka rrhea persists for more than 14 days, consider stool examination for Ova and Parasites per Smart Set Eusebio Haines MD LAB_1 Performing Organization Address [facility] Phon e Number [facility] [place] LAB [address] [address] CMV By PCR, Qualitative (12/01/2019 3:42 PM CDT) [facility] Method Time Signature CMV By PCR, Not Detected 12/04/2019 [facility] Qual 4:12 PM CDT LABORATORIES Comment: NOT DETECTED - A negative result does no t rule out the presence of PCR inhibitors in the patien t specimen or assay specific nucleic acid in concentra tions below the level of detection by the assay. INTERPRETIVE INFORMATION: Cytomegaloviru s Detection by PCR Test developed and characteristics deter mined by [facility]. See Compliance Statement A : [facility] Performed by [facility], [address] [place] [address] www.[email or web address], Romulo Pritchett MD, Lab. Director CMV Source Plasma 12/04/2019 4:12 PM CDT [facility] Specimen Anatomical Collection Method / Collection Time Recei peña Time (Source) Location / Volume Laterality Blood OTHER / Unknown Venipuncture / 12/01/2019 3:42 06/2 020 3:42 Unknown PM CDT PM CDT Eusebio Haines MD LAB_1 Performing Organization Address [facility]/State/ZIP Code Phon e Number [facility] [address] [place], [place] [phone] WBC, Blood (12/01/2019 3:42 PM CDT) athologist Signature WBC 10.1 3.5 - 10.5 12/01/2019 [facility] x10(9)/L 3:47 PM CDT LABORATORY Specimen Anatomical Collection Method / Collection Time Recei peña Time (Source) Location / Volume Laterality Blood Venipuncture / 12/01/2019 3:42 12/01/2019 3:42 Unknown PM CDT PM CDT Eusebio Haines MD LAB_1 Performing Organization Address [facility] Phon e Number [facility] [address] [place], [place] [phone] Platelet Count (12/01/2019 3:42 PM CDT) athologist Signature Platelets 336 150 - 450 12/01/2019 [facility] x10(9)/L 3:47 PM CDT LABORATORY Specimen Anatomical Collection Method / Collection Time Recei peña Time (Source) Location / Volume Laterality Blood Venipuncture / 12/01/2019 3:42 12/01/2019 3:42 Unknown PM CDT PM CDT Eusebio Haines MD LAB_1 Performing Organization Address [facility] Code Phon e Number [facility] [address] [place], [place] [phone] Hemoglobin (12/01/2019 3:42 PM CDT) athologist Signature Hemoglobin 14.1 12.0 - 15.5 12/01/2019 [facility] g/dL 3:47 PM CDT LABORATORY Specimen Anatomical Collection Method / Collection Time Recei peña Time (Source) Location / Volume Laterality Blood Venipuncture / 12/01/2019 3:42 12/01/2019 3:42 Unknown PM CDT PM CDT Eusebio Haines MD LAB_1 Performing Organization Address [facility]/ZIP Code Phon e Number [facility] [address] [place] [phone] Bilirubin Total (12/01/2019 3:42 PM CDT) athologist Signature Bilirubin, 0.3 0.2 - 1.2 12/01/2019 [facility] Total mg/dL 4:40 PM CDT LABORATORY Specimen Anatomical Collection Method / Collection Time Recei peña Time (Source) Location / Volume Laterality Blood Venipuncture / 12/01/2019 3:42 12/01/2019 3:42 Unknown PM CDT PM CDT Eusebio Haines MD LAB_1 Performing Organization Address [facility] LABORATORY [address] [place] [phone] Alanine Aminotransferase (ALT) (12/01/2019 3:42 PM CDT) athologist Signature ALT (SGPT) 29 0 - 55 U/L 12/01/2019 [facility] 4:40 PM CDT LABORATORY Specimen Anatomical Collection Method / Collection Time Recei peña Time (Source) Location / Volume Laterality Blood Venipuncture / 12/01/2019 3:42 12/01/2019 3:42 Unknown PM CDT PM CDT Eusebio Haines MD LAB_1 Performing Organization Address [facility] LABORATORY [address] [place] [phone] Alkaline Phosphatase (ALK) (12/01/2019 3:42 PM CDT) athologist Signature Alkaline 71 40 - 150 12/01/2019 [facility] Phosphatase U/L 4:40 PM CDT LABORATORY Specimen Anatomical Collection Method / Collection Time Recei peña Time (Source) Location / Volume Laterality Blood Venipuncture / 12/01/2019 3:42 12/01/2019 3:42 Unknown PM CDT PM CDT Eusebio aHines MD LAB_1 Performing Organization Address [facility] LABORATORY [address] [place] [phone] Creatinine (12/01/2019 3:42 PM CDT) athologist Signature Creatinine 0.80 0.55 - 12/01/2019 [facility] 1.02 mg/dL 4:40 PM CDT LABORATORY GFR, Estimated >60 >60 12/01/2019 [facility] mL/min/1.7 4:40 PM CDT LABORATORY 3m2 GFR, Est If >60 >60 12/01/2019 [facility] mL/min/1.7 4:40 PM CDT LABORATORY Mal[place]ian 3m2 Specimen Anatomical Collection Method / Collection Time Recei peña Time (Source) Location / Volume Laterality Blood Venipuncture / 12/01/2019 3:42 12/01/2019 3:42 Unknown PM CDT PM CDT Eusebio Haines MD LAB_1 Performing Organization Address [facility] e Number [facility] [address] [place], [place] [phone] (ABNORMAL) C Reactive Protein (12/01/2019 3:42 PM CDT) P athologist Signature C-Reactive 1.5 (H) 0.0 - 0.7 12/01/2019 [facility] Protein mg/dL 4:40 PM CDT LABORATORY Specimen Anatomical Collection Method / Collection Time Recei peña Time (Source) Location / Volume Laterality Blood Venipuncture / 12/01/2019 3:42 12/01/2019 3:42 Unknown PM CDT PM CDT Eusebio Haines MD LAB_1 Performing Organization Address [facility] Phon e Number [facility] [address] [place] [phone] Vedolizumab Quantitation with Reflex to Antibodies (12/01/2019 3:42 PM CDT) P athologist Signature Vedolizumab 20.8 mcg/mL 12/05/2019 [facility] Quantitation 3:00 PM CDT LAB Comment: For concentrations of vedolizumab less t palacio or equal to 15.0 mcg/mL, reflex testing for antibodi [id number] will be performed. REFERENCE VALUE------ Lower limit of quantitation = 2.0 mcg/mL ADDITIONAL INFORMATIO N This test was developed and its performa nce characteristics determined by [facility] in a manner co nsistent with CLIA requirements. This test has not been nicho ared or approved by the U.S. Food and Drug Administration. Test Performed by: [facility] [address] [place], [place] [address] [employer] Programmer Analyst: Sergio Ashby M.D. Ph. 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
--- OUTSIDE RECORDS SUMMARY | 2022-03-20 16:08 | XMS_ITS | Encounter Summary ---
:1975 Author Organization [employer] Address [address] [address] Care Team Providers Name Role Phone Sheeba Castillo APRN, CNP Primary Care Provider [phone] Reason for Visit Reason Comments Infusion Infusion Therapy Plan (Routine) - Authorized Specialty Diagnoses / Procedures Referred By Contact Refer red To Contact Diagnoses Other ulcerative colitis with rectal bleeding (HRC) Eusebio Haines MD [facility] [address] [facility] [address] 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 budesonide (UCERIS) 9 Take 1 Tablet by 90 Tablet 0 01/12/20 20 01/28/2021 MG 24 hr mouth daily. tabletIndications: Left sided colitis with rectal bleeding (HRC) cholestyramine MIX 4 GRAMS IN 4-8 378 g 0 01/14/2020 (QUESTRAN) 4 GM/DOSE OUNCESOF FLUID AND powder DRINK ONCE DAILY. MAY INCREASE TO TWICE DAILY IF NOT IMPROVING. SEPERATE AT LEAST 2 HOURS FROM OTHER MEDICATIONS. dicyclomine (BENTYL) TAKE 1 TABLET BY 360 Tablet 3 8 04/21/2020 20 MG tablet MOUTH 4 TIMES DAILY NEEDED hydrocortisone Insert 100 mg 30 Each 11 08/15/2019 020 (CORTENEMA) 100 rectally daily at MG/60ML enema bedtime. hydrocortisone Insert 1 30 Each 0 07/15/2019 02/27/2020 (HYDROCORTISONE 25 MG) Suppository 25 MG suppository rectally daily at bedtime. hyoscyamine DISSOLVE 1 TABLET 30 Tablet 0 01/14/20202020 (LEVSIN/SL) 0.125 MG UNDER THE TONGUE sublingual tablet EVERY 4 HOURS NEEDED FOR CRAMPING. mesalamine (CANASA) Insert 1 30 Suppository 2 07/01/2019 0 02/27/2020 1000 MG Suppository suppositoryIndications rectally daily at : Ulcerative bedtime. pancolitis with rectal bleeding (HRC) Phentermine HCl 30 MG Take 30 mg by 0 03/15/2020 capsule mouth daily. Phentermine HCl 37.5 TAKE 1 CAPSULE BY 90 Capsule 0 06/13/20 19 03/15/2020 MG capsule MOUTH DAILY. PIRMELLA 1-35 TAKE ONE TABLET BY 112 Tablet 0 0 02/27/2020 MG-MCG MOUTH ONE TIME tabletIndications: DAILY CONTINOUSLY. Well adult exam predniSONE (DELTASONE) 4 tabs daily for 2 112 Tablet 0 08/2402/27/2020 10 MG tablet wk, 3 tabs daily for 1 wk, 2 tabs daily for 1 wk, then decrease by 1/2 tab weekly until done triamcinolone Apply topically 80 g 0 07/03/20192019 acetonide (KENALOG) two times daily as 0.1 % ointment needed. To itchy bumps on trunk and extremities triamterene-hydrochlor TAKE 1 TABLET BY 90 Tablet 3 019 02/27/2020 othiazide (MAXZIDE-25) MOUTH DAILY. 37.5-25 MG tabletIndications: Essential hypertension (HRC) documented as of this encounter Progress Notes Nadia Thompson RN - 01/28/2020 2:30 PM CDT Pt here for entyvio infusion. No complaints. Pt states she started new medication that has been working well for her. Premedicated with tylenol. Tolerated well with no issues. Discharged in stable condition. Will return 03/17/20 for next appt. documented in this encounter Plan of Treatment Upcoming Encounters Date Type Specialty Care Team Description 05/05/2022 Appointment Chemo Therapy/Infusion Services 09/15/2022 Telemedicine Gastroenterology Eusebio Haines MD [address] [place] [address] (Wo rk) documented as of this encounter Visit Diagnoses Diagnosis Other ulcerative colitis with rectal ble enrico (HRC) - Primary documented in this encounter Administered Medications Inactive Administered Medications - up to 3 most recent administrations Medication Order MAR Action Action Date Dose Rate Site acetaminophen (TYLENOL) tablet 975 Given 01/28/2020 2:34 PM CDT 975 mg mg 975 mg, Oral, ONCE, On Sun01/28/20 at 1445, For 1 dose vedolizumab (Entyvio) 300 mg in sodium Started 01/28/2020 2:34 PM CDT 300 mg chloride 0.9 % 250 mL infusion 300 mg, Intravenous, Administer over 30 Minutes, ONCE, On Sun01/28/20 at 1515, For 1 dose, BIOTHERAPY - Must be given by chemotherapy/biotherapy certified documented in this encounter Care Teams Manager Employment Relationship Specialty Start Date End Date Sheeba Castillo, HEAVY CLEANER, NURSE PARALEGAL PCP - General Nurse Practitioner 07/20/16 [address] [place] [address] documented as of this encounter
--- OUTSIDE RECORDS SUMMARY | 2022-03-20 16:08 | XMS_ITS | Encounter Summary ---
:1975 Author Organization [employer] Address [address] [place] [address] Care Team Providers Name Role Phone Sheeba Castillo APRN, SIERRA Primary Care Provider [phone] Reason for Visit Reason Onset Date Comments Refill 02/27/2020 norethindrone-eth es tradiol (PIRMELLA ) 1-35 MG-[facility] tablet Encounter Details Date Type Department Care Team Description 02/27/2020 Refill [facility] Iggy Hernandez MD Refill Medicine [address] [facility] E (norethindrone-eth [address] 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 norethindrone-eth estradiol (PIRMELLA 1/35) 1-35 MG-MCG tablet 112 Tablet Sig: Take 1 Tablet by mouth daily. CONTINOUSLY Interface, Out Surescripts Prov Query - 02/27/2020 12:50 PM CDT norethindrone-eth estradiol (PIRMELLA 1/35) 1-35 MG-MCG tablet Medication started: 03/03/2014 Last ordered by IGGY HERNANDEZ: 10/27/2019 (123 days ago) QTY: 112, Refills: 0, Sig: take one tablet by mouth one time daily continously. (changed) -> The requested sig has changed from the last order. -> An office visit is overdue (performed 15 months ago, required every 12 months). Last qualifying visit: 12/19/2018 (with IGGY HERNANDEZ) (A more recent visit (in Family Practice with ESTEBAN KRISHNAMURTHY) was found) Next scheduled visit: 03/15/2020 (with IGGY HERNANDEZ) Powered by [employer], Reference: [id number], 02/27/2020 12:50:37 PM CDT, Pool: [facility] REFILL ([id number]) documented in this encounter Plan of Treatment Upcoming Encounters Date Type Specialty Care Team Description 05/05/2022 Appointment Chemo Therapy/Infusion Services 09/15/2022 Telemedicine Gastroenterology Eusebio Haines MD [address] [place], [place] [phone] (Wo rk) documented as of this encounter Visit Diagnoses Diagnosis Well adult exam Routine general medical examination at a health care facility documented in this encounter Care Teams Geologist Petroleum Relationship Specialty Start Date End Date Sheeba Castillo, RUDY, EARLY CHILDHOOD TEACHER ASSISTANT PCP - General Nurse Practitioner 07/20/16 [address] [place] [phone] documented as of this encounter
--- OUTSIDE RECORDS SUMMARY | 2022-03-20 16:08 | XMS_ITS | Encounter Summary ---
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 documented as of this encounter Patient Instructions Patient InstructionsLucero Roque - 02/27/2020 3:00 PM CDT Order trials, call when in documented in this encounter Plan of Treatment Upcoming Encounters Date Type Specialty Care Team Description 05/05/2022 Appointment Chemo Therapy/Infusion Services 09/15/2022 Telemedicine Gastroenterology Eusebio Haines MD [address] [place] [address] (Wo rk) documented as of this encounter Visit Diagnoses Diagnosis Myopia of both eyes - Primary Myopia documented in this encounter Care Teams Protection Analyst Relationship Specialty Start Date End Date Sheeba Castillo, MAGAZINE HAND, MOBILE APPLICATION DEVELOPER PCP - General Nurse Practitioner 07/20/16 [address] [place] Din[place] [phone] documented as of this encounter
--- OUTSIDE RECORDS SUMMARY | 2022-03-20 16:08 | XMS_ITS | Encounter Summary ---
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 [place], [place] Hematochezia 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 We discussed your ongoing symptoms consistent with incompletely treated inflammatory bowel disease with ulcerative colitis. We are still waiting on several tests to be processed and finalized as a partof your ongoing evaluation and search to find a treatment that works well for you. Based on the results of these tests further recommendations will be made but may include performing a flexible sigmoidoscopy and might also include the potential for a change in your treatment. As we discussed, I will likely end up presenting your case to our inflammatory bowel Disease group given that you have had a suboptimal response to multiple medications now typically effective in treating ulcerative colitis. Inthe meantime, we will keep the vedolizumab infusion orders on your chart, continue to take your oralbudesonide and continue to take your cholestyramine as you have been doing so in order to make it through a work day. I will be in contact with you once all of the tests have been completed with the next steps. documented in this encounter Progress Notes Eusebio Haines MD - 12/05/2019 10:30 AM CDT GI Clinic Video Progress Note Idania Duarte MR# [id number] [facility]# [id number] Date of Visit: 12/05/19 Inflammatory Bowel Disease History 1. Disease: UC 2. Age at diagnosis: 40 3. Extent: left sided with severe proctitis 4. Perianal involvement: no 5. Extraintestinal manifestations: none 6. Prior IBD treatment: ?a.Oral 5 ASA: Lialda 4.8g daily, ineffective ?b. Topical 5 ASA: canasa ?c. Topical steroids: proctofoam, ineffective in past ?d. Corticosteroids: prednisone multi week course at diagnosis that induced aremission (2015); restarted on taper in January 2019, but unable to taper off and on prolonged 40mg daily for >1 month in March. Hospitalized April 2019 and treated with IV steroids, discharged on prednisone taper. e. Remicade 5mg/kg s/p induction then increased to 10 mg/kg IV with still no symptomatic improvement.Midcycle trough level 15.74 ug/mL. 7. Current treatment: Vedolizumab infusions started on 09/10/2019. Idania Duarte is a 44 y.o. 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 The patient reports that shestill has urgent bowel movements that are liquid and marked by occasional blood in the stool. She recently just started her maintenance infusions with vedolizumab. Because of the ongoing symptoms, stool tests as well as blood work were ordered. Many of these unfortunately are still pending even days after they were ordered. Patient reports that she has been able to manage by using her cholestyramine twice daily to help with her diarrhea. She denies any fevers, chills, lightheadedness, unintentional weight loss. 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 PMH: Past Medical History: Diagnosis Date ??? BCC (basal cell carcinoma), leg 08/11/2011 ??? BP (high blood pressure) (HRC) ??? Chronic headaches 08/11/2011 ??? Clostridium difficile [...] to Visit Medication Sig Dispense Refill ??? budesonide (ENTOCORT EC) 3 MG capsule Take 3 Capsules by mouth daily. 90 Capsule 1 ??? Calcium Carbonate Antacid 1000 MG Take by mouth. Reported on 08/14/2016 ??? cholestyramine (QUESTRAN) 4 GM/DOSE powder MIX 4 GRAMS IN 4-8 OUNCESOF FLUID AND DRINK ONCE DAILY. MAY INCREASE TO TWICE DAILY IF NOT IMPROVING. SEPERATE AT LEAST 2 HOURS FROM OTHER MEDICATIONS. 240 g 1 ??? dicyclomine (BENTYL) 20 MG tablet TAKE 1 TABLET BY MOUTH 4 TIMES DAILY NEEDED 360 Tablet 3 ??? hydrocortisone (CORTENEMA) 100 MG/60ML enema Insert 100 mg rectally daily at bedtime. (Patient not taking: Reported on 09/10/2019) 30 Each 11 ??? hydrocortisone (HYDROCORTISONE 25 MG) 25 MG suppository Insert 1 Suppository rectally daily at bedtime. (Patient not taking: Reported on 08/29/2019) 30 Each 0 ??? hyoscyamine (LEVSIN/SL) 0.125 MG sublingual tablet Take 1 Tablet by mouth every 4 hours as needed for Cramping. 30 Tablet 1 ??? mesalamine (CANASA) 1000 MG suppository Insert 1 Suppository rectally daily at bedtime. (Patientnot taking: Reported on 12/05/2019) 30 Suppository 2 ??? Multiple Vitamin (MULTI-VITAMIN OR) Take 1 tablet by mouth daily (every 24 hours). ??? Phentermine HCl 30 MG capsule Take 30 mg by mouth daily. ??? Phentermine HCl 37.5 MG capsule TAKE 1 CAPSULE BY MOUTH DAILY. (Patient not taking: Reported on 12/05/2019) 90 Capsule 0 ??? PIRMELLA 1-35 MG-MCG tablet TAKE ONE TABLET BY MOUTH ONE TIME DAILY CONTINOUSLY. 112 Tablet0 ??? predniSONE (DELTASONE) 10 MG tablet 4 tabs daily for 2 wk, 3 tabs daily for 1 wk, 2 tabs daily for 1 wk, then decrease by 1/2 tab weekly until done (Patient not taking: Reported on 09/10/2019) 112 Tablet 0 ??? triamcinolone acetonide (KENALOG) 0.1 % ointment Apply topically two times daily as needed. To itchy bumps on trunk and extremities (Patient not taking: Reported on 12/05/2019) 80 g 0 ??? triamterene-hydrochlorothiazide (MAXZIDE-25) 37.5-25 MG tablet TAKE 1 TABLET BY MOUTH DAILY. 90 Tablet 3 No facility-administered medications prior to visit. Allergies: No Known Allergies Review of Systems: Musculoskeletal: Patient denies any muscle aches or joint pains. Skin: Patient denies any skin rashes or skin sores. All other systems of a 14 point review of systems negative except as above and per hpi. PE: There were no vitals filed for this visit. GEN: No acute distress, comfortable, patient is nontoxic in appearance Head: normocephalic, atraumatic; sclera anicteric Skin: no obvious rash, no skin breakdown, no jaundice on visible skin Neuro: A&Ox3, grossly no focal deficits Psych: appropriate affect and mood Labs: @PNBRIEFLAB(WBC,wbccr,hgb,hct,mcv,PLTS) ) Lab Results Component Value [...] 07/05/2016 Lab Results Component Value Date Sodium 137 06/06/2019 Potassium 3.6 06/06/2019 Chloride 102 06/06/2019 CO2 26 06/06/2019 Lab Results Component Value Date Creatinine 0.80 12/01/2019 Imaging: (Past 12 months): IMPRESSION COMPARISON: None. ?? TECHNIQUE: Images were obtained through the abdomen and pelvis following the administration of 100 mL IOPAMIDOL 76 % IV SOLN utilizing CT enterography protocol. Patient orally ingested 1350 mL Volumen contrast medium. ?? FINDINGS: SMALL BOWEL: The small bowel wall thickness is normal. No mucosal hyperenhancement. No serosal edemaor inflammation. There are small to borderline nodes in the root of the small bowel mesentery.. The terminal ileum appears normal. ?? LARGE BOWEL: Moderate stool throughout the colon. There is wlip-mq-sjvflyth wall thickening, and mucosal and mural hyperenhancement of the descending colon. There are adjacent mildly enlarged lymph nodes and minimal infiltrative density. The distal sigmoid colon is nondistended but may be mildly thick-walled and demonstrates mucosal hyperenhancement. There is rectal wall thickening, mucosal hyperenhancement, enlarged perirectal lymph nodes and infiltrative density extending into the perirectal fat. The appendix appears normal. ?? ABDOMEN/PELVIS: Liver, spleen, kidneys, pancreas, and adrenals appear within normal limits. No ascites or other adenopathy. No pelvic mass. ?? IMPRESSION: Areas of colonic wall thickening, mucosal and mural enhancement, adjacent lymph nodes and pericolonic fatty edema or inflammation in the descending colon, sigmoid colon, and rectosigmoid. Celiac Specific Labs: Lab Results Component Value [...] 07/26/2016 Hep B Surf Ab Reactive 01/09/2014 No components found for: HEPBCAB No results found for: HEPBEAG No results found for: HBEAB No results found for: HBVRE Hep C: Lab Results Component Value Date [...] Rate 14 02/28/2008 Sedimentation Rate 3 09/27/2001 CMV By PCR, Qual (12/01/2019) Not Detected GI Procedures: Procedure Date: 09/01/2019 11:41 AM Date of : 1975 Admit Type: Outpatient Age: 44 Gender: Female Note Status: Finalized Attending MD: Wes Parada MD Procedure: Flexible Sigmoidoscopy Indications: High risk colon cancer surveillance: Ulcerative left sided colitis Providers: Wes Parada MD, Lenora Schaffre RN Referring MD: Eusebio Haines MD Medicines: Midazolam 2 mg IV, Fentanyl 100 micrograms IV Complications: No immediate complications. Procedure: After obtaining informed consent, the scope was passed under direct vision. The [id number] was introduced through the anus and advanced [...] Return to GI clinic as previously scheduled. FINAL DIAGNOSIS A. Colon, descending, biopsy: ?? No diagnostic abnormality ?? B. Colon, rectum, biopsy: ?? Diffuse chronic active colitis with ulceration ?? Comment: No granulomas or dysplasia identified IMPRESSION/ASSESSMENT: Idania Duarte is a 44 y.o. female who presents to the Gastroenterology Clinic today for a video follow-up visit on chronic left-sided ulcerative proctocolitis with a cecal patch on immunosuppressive medication therapy with vedolizumab and oral budesonide with continued episodic hematochezia, diarrhea and indirect evidence of ongoing (incompletely suppressed) active inflammatory bowel disease. Left sided colitis with rectal bleeding (HRC)/ Immunosuppression due to drug therapy/Hematochezia: Based on the available information, patient has no evidence of infection that could be mimicking an ongoing/incompletely suppressed flare of inflammatory bowel disease. However, we are still waiting onlab tests, recently performed, to be fully processed and completed. Based on these results includingher vital is you map trough level and presence of any antibodies, further recommendations will be made but may include performing a flexible sigmoidoscopy to directly visualize the left colon and the biopsy this area. Should the patient demonstrate a nonresponse with no evidence of immunity to vedolizumab, the next steps will be somewhat complicated and I will likely end up presenting this patient's case to our inflammatory bowel Disease group for help in her care as her previous treatments have included topical therapy with mesalamine, systemic corticosteroids with prednisone, topical therapy withbudesonide, Remicade infusions, Xeljanz. I explained this to her and she acknowledged. For now she wi ll continue on vedolizumab infusions as prescribed (last infusion just a couple of days ago) as wellas oral budesonide and cholestyramine for symptomatic treatment. All questions were answered today to the patient's satisfaction. I spent 15 minutes with this patient, 14 minutes spent on counseling, education, coordination of care, 1 minutes spent on visual physical examination. Clinician located at clinic. 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
--- OUTSIDE RECORDS SUMMARY | 2022-03-20 16:08 | XMS_ITS | Encounter Summary ---
:1975 Author Organization [employer] Address [address] [address] Care Team Providers Name Role Phone Sheeba Castillo APRN, CNP Primary Care Provider [phone] Reason for Visit Reason Comments Infusion Infusion Therapy Plan (Routine) - Authorized Specialty Diagnoses / Procedures Referred By Contact Refer red To Contact Diagnoses Other ulcerative colitis with rectal bleeding (HRC) Eusebio Haines MD [id number] [address] [facility] [address] 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 hyoscyamine Take 1 Tablet by 30 Tablet 1 09/12/2019 020 (LEVSIN/SL) 0.125 MG mouth every 4 hours sublingual tablet as needed for Cramping. mesalamine (CANASA) Insert [...] encounter Progress Notes Nadia Thompson RN - 09/10/2019 2:30 PM CDT Pt here for first Entyvio infusion. Pt states she is having some abdominal bloating and swelling in BLE. Pt states MD is aware. Pt educated on medication and possible side effects. Pt premedicated withtylenol. Tolerated infusion well with no issues. Discharged in stable condition. Will return 09/24/19 for next appt. documented in this encounter Plan of Treatment Upcoming Encounters Date Type Specialty Care Team Description 05/05/2022 Appointment Chemo Therapy/Infusion Services 09/15/2022 Telemedicine Gastroenterology Eusebio Haines MD [address] [place], [place] [address] (Wo rk) documented as of this encounter Visit Diagnoses Diagnosis Other ulcerative colitis with rectal ble eding (HRC) - Primary documented in this encounter Administered Medications Inactive Administered Medications - up to 3 most recent administrations Medication Order MAR Action Action Date Dose Rate Site acetaminophen (TYLENOL) tablet 975 Given 09/10/2019 2:45 PM CDT 975 mg mg 975 mg, Oral, ONCE, On Sun09/10/19 at 1500, For 1 dose sodium chloride 0.9% infusion Started 09/10/2019 2:41 PM CDT 500 mL 20 mL/hr 500 mL, Intravenous, at 20 mL/hr, ONCE, On Sun09/10/19 at 1500, For 1 dose sodium chloride 0.9% injection 10-60 mL Given 09/10/2019 3:31 PM CDT 10 mL 10-60 mL, Intravenous, PRN BEFORE&AFTER MEDICATIONS OR LAB DRAW, Line Patency, Starting on Sun09/10/19 at 1438, Until Sun09/10/19 at 1733, For 1 day vedolizumab (Entyvio) 300 mg in sodium Started 09/10/2019 2:45 PM CDT 300 mg chloride 0.9 % 250 mL infusion 300 mg, Intravenous, Administer over 30 Minutes, ONCE, On Sun09/10/19 at 1530, For 1 dose, BIOTHERAPY - Must be given by chemotherapy/biotherapy certified documented in this encounter Care Teams Set Designer Relationship Specialty Start Date End Date Sheeba Castillo APRN, HEALTH COUNSELOR PCP - General Nurse Practitioner 07/20/16 [address] [place] [id number] documented as of this encounter
--- OUTSIDE RECORDS SUMMARY | 2022-03-20 16:08 | XMS_ITS | Encounter Summary ---
:1975 Author Organization [facility] Address [address], [place] [address] Care Team Providers Name Role Phone Sheeba Castillo APRN, JAVA LEAD ENGINEER Primary Care Provider [phone] Reason for Visit Reason Comments Video Visit Encounter Details Date Type Department Care Team Description 03/15/2020 Telemedicine Iggy Triana Well a dult exam (Primary Dx); Medicine Overweight; 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 Well Visit, Ages 18 to 50: Care Instructions Your Care Instructions Physical exams can help you stay healthy. Your doctor has checked your overall health and may have suggested ways to take good care of yourself. He or she also may have recommended tests. At home, you can help prevent illness with healthy eating, regular exercise, and other steps. Follow-up care is a wilkins part of your treatment and safety. Be sure to make and go to all appointments, and call your doctor if you are having problems. It's also a good idea to know your test results and keep a list of the medicines you take. How can you care for yourself at home? ?? Reach and stay at a healthy weight. This will lower your risk for many problems, such as obesity,diabetes, heart disease, and high blood pressure. ?? Get at least 30 minutes of physical activity on most days of the week. Walking is a good choice. You also may want to do other activities, such as running, swimming, cycling, or playing tennis or team sports. Discuss any changes in your exercise program with your doctor. ?? Do not smoke or allow others to smoke around you. If you need help quitting, talk to your doctor about stop-smoking programs and medicines. These can increase your chances of quitting for good. ?? Talk to your doctor about whether you have any risk factors for sexually transmitted infections (STIs). Having one sex partner (who does not have STIs and does not have sex with anyone else) is a good way to avoid these infections. ?? Use control if you do not want to have children at this time. Talk with your doctor about the choices available and what might be best for you. ?? Protect your skin from too much sun. When you're outdoors from 10 a.m. to 4 p.m., stay in the shade or cover up with clothing and a hat with a wide brim. Wear sunglasses that block UV rays. Even when it's cloudy, put broad-spectrum sunscreen (SPF 30 or higher) on any exposed skin. ?? See a dentist one or two times a year for checkups and to have your teeth cleaned. ?? Wear a seat belt in the car. Follow your doctor's advice about when to have certain tests. These tests can spot problems early. For everyone ?? Cholesterol. Have the fat (cholesterol) in your blood tested after age 20. Your doctor will tell you how often to have this done based on your age, family history, or other things that can increase your risk for heart disease. ?? Blood pressure. Have your blood pressure checked during a routine doctor visit. Your doctor will tell you how often to check your blood pressure based on your age, your blood pressure results, and other factors. ?? Vision. Talk with your doctor about how often to have a glaucoma test. ?? Diabetes. Ask your doctor whether you should have tests for diabetes. ?? Colon cancer. Your risk for colorectal cancer gets higher as you get older. Some experts say thatadults should start regular screening at age 50 and stop at age 75. Others say to start before age 50 or continue after age 75. Talk with your doctor about your risk and when to start and stop screening. For women ?? Breast exam and mammogram. Talk to your doctor about when you should have a clinical breast exam and a mammogram. Medical experts differ on whether and how often women under 50 should have these tests. Your doctor can help you decide what is right for you. ?? Cervical cancer screening test and pelvic exam. Begin with a Pap test at age 21. The test often is part of a pelvic exam. Starting at age 30, you may choose to have a Pap test, an HPV test, or both tests at the same time (called co- testing). Talk with your doctor about how often to have testing. ?? Tests for sexually transmitted infections (STIs). Ask whether you should have tests for STIs. Youmay be at risk if you have sex with more than one person, especially if your partners do not wear condoms. For men ?? Tests for sexually transmitted infections (STIs). Ask whether you should have tests for STIs. Youmay be at risk if you have sex with more than one person, especially if you do not wear a condom. ?? Testicular cancer exam. Ask your doctor whether you should check your testicles regularly. ?? Prostate exam. Talk to your doctor about whether you should have a blood test (called a PSA test)for prostate cancer. Experts differ on whether and when men should have this test. Some experts suggest it if you are older than 45 and are -[place] or have a father or brother who got prostatecancer when he was younger than 65. When should you call for help? Watch closely for changes in your health, and be sure to contact your doctor if you have any problems or symptoms that concern you. Where can you learn more? 1. Go to [email or web address]/[employer] or [email or web address]. 2. Enter P072 in the search box. Current as of: February 12, 2019?Content Version: 12.4 ?? [employer]. Care instructions adapted under license by your healthcare professional. If you have questions abouta medical condition or this instruction, always ask your healthcare professional. [employer] disclaims any warranty or liability for your use of this information. documented in this encounter Progress Notes Iggy Andrade MD - 03/15/2020 4:00 PM CDT Addended by: IGGY ANDRADE on: 04/09/2020 03:48 PM Modules accepted: Orders Iggy Andarde MD - 03/15/2020 4:00 PM CDT Subjective: Preventive Exam & Pelvic SUBJECTIVE: Patient presents for a routine preventive physical exam. The patient has the following concerns: none Has been on prednisone on and off the past year due to crohns. Working out daily 30 min. Is interested in restarting the phentermine now that she is ndone with prednisone. 185# today. Past Medical History: Past Medical History: Diagnosis Date ??? BCC (basal cell carcinoma), leg 08/11/2011 ??? BP (high blood pressure) (HRC) ??? Chronic headaches 08/11/2011 ??? Clostridium difficile colitis 01/2012 ??? Concussion 08/11/2011 ??? HTN (hypertension) (HRC) 08/11/2011 ??? Hx of tonsillectomy 08/11/2011 ??? Irritable bowel syndrome 11/29/2002 ??? 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 (Menstrual status: Continuous hormonal contraception). Other Medical/Surgical History: Past Surgical History: Procedure Laterality Date ??? CYST REMOVAL left wrist ??? LAP CHOLECYSTECTOMY 07/12/2016 ??? TONSILLECTOMY Adverse Drug Reactions: No Known Allergies Current Medications: Reviewed today and updated on Health Profile. Family History: (First degree family members) Family History Problem Relation Age of Onset ??? Dementia Maternal Grandmother ??? Cancer, Prostate Maternal Grandfather ??? Heart Disease Negative Family History ??? Stroke Negative Family History ??? Cancer, Colon Negative Family History ??? DVT/PE Negative Family History ??? Thyroid Disorder Negative Family History ??? Diabetes Negative Family History ??? Amblyopia/Strabismus Negative Family History ??? Blindness Negative Family History ??? Cataract Negative Family History ??? Glaucoma Negative Family History ??? Macular Degeneration Negative Family History ??? Retinal Detachment Negative Family History Social History: Social History Socioeconomic History ??? Marital status: Single Spouse name: Not on file ??? Number of children: 0 ??? Years of education: Not on file ??? Highest education level: Not on file Occupational History ??? 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 Financial resource strain: Not on file ??? Food insecurity Worry: Not on file Inability: Not on file ??? Transportation needs Medical: Not on file Non-medical: Not on file Tobacco Use ??? Smoking status: Former Smoker Packs/day: 0.25 Years: 15.00 Pack years: 3.75 Types: Cigarettes Last attempt to quit: 04/25/2015 Years since quittin.8 ??? Smokeless tobacco: Never Used Substance and Sexual Activity ??? Alcohol use: Yes Alcohol/week: 1.0 standard drinks Types: 1 Cans of beer per week Comment: 1-3 drinks a week ??? Drug use: No ??? Sexual activity: Yes Partners: Male control/protection: OCP Lifestyle ??? Physical activity Days per week: Not on file Minutes per session: Not on file ??? Stress: Not on file Relationships ??? Social connections Talks on phone: Not on file Gets together: Not on file Attends religion service: Not on file Active member of club or organization: Not on file Attends meetings of clubs or organizations: Not on file Relationship status: Not on file ??? Intimate partner violence Fear of current or ex partner: Not on file Emotionally abused: Not on file Physically abused: Not on file Forced sexual activity: Not on file Other Topics Concern ??? Bike Helmet Not Asked ??? [place] Yes ??? Exercise Yes ??? Guns in home Yes ??? Seat Belt Yes ??? Special Diet No ??? Weight Concern Yes Social History Narrative . Works in [employer] at [email or web address]. 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 Preventive Health Assessment: Health maintenance alerts are reviewed and updated. Calcium intake is adequate. Diet: 5 fruits and veggies, minimal serving per week of red meat. The patient does drink soda. Exercise is adequate. 30 min per day. The patient practices safe sex. Tetanus immunization is up-to-date. Sun protection is used. mammo due Recent lipid screen has not been performed. Review of Systems: With the exception of any items noted above, the remainder of the complete ROS is negative. OBJECTIVE: Vital Signs: There were no vitals filed for this visit. Estimated body mass index is 28.98 kg/m?? as calculated from the following: Height as of 09/01/19: 5' 7 (1.702 m). Weight as of 09/01/19: 185 lb (83.9 kg). General: Patient alert, in NAD. Psychiatric: Alert & oriented with normal affect and insight. Patient does not appear depressed or anxious. ASSESSMENT/ PLAN: Iggy was seen today for video visit. Diagnoses and all orders for this visit: Well adult exam - Lipid Panel and Direct LDL(If Needed); Future - Basic Metabolic Panel; Future Overweight (HRC) Refilled, hopes to loose 10-15 more pounds. - Phentermine HCl 37.5 MG capsule; Take 1 Capsule by mouth daily. Screening for breast cancer - MM Mammogram Screening Bilat W CAD; Future Preventive health counseling provided: diet, exercise, PAP tests, sun screen, calcium, breast exams Please note that parts of this document were created with voice recognition dictation. Typographicalerrors may result. documented in this encounter Plan of Treatment Upcoming Encounters Date Type Specialty Care Team Description 05/05/2022 Appointment Chemo Therapy/Infusion Services 09/15/2022 Telemedicine Gastroenterology Eusebio Haines MD [address] [place] [address] (Wo rk) documented as of this encounter Results (ABNORMAL) Basic Metabolic Panel (04/08/2020 3:56 PM CDT) Analysis Performed At Patho logist Time Signature Sodium 139 136 - 145 04/08/2020 [facility] mmol/L 4:39 PM CDT LABORATORY Potassium 3.4 (L) 3.5 - 5.1 04/08/2020 [facility] mmol/L 4:39 PM CDT LABORATORY Chloride 102 98 - 109 04/08/2020 [facility] mmol/L 4:39 PM CDT LABORATORY CO2 28 20 - 29 04/08/2020 [facility] mmol/L 4:39 PM CDT LABORATORY Anion Gap 9 7 - 16 04/08/2020 [facility] mmol/L 4:39 PM CDT LABORATORY Calcium 8.9 8.4 - 10.4 04/08/2020 [facility] mg/dL 4:39 PM CDT LABORATORY BUN 11 7 - 26 04/08/2020 [facility] mg/dL 4:39 PM CDT LABORATORY Creatinine 0.80 0.55 - 04/08/2020 [facility] 1.02 mg/dL 4:39 PM CDT LABORATORY GFR, Estimated >60 >60 04/08/2020 [facility] mL/min/1.7 4:39 PM CDT LABORATORY 3m2 Glucose 95 70 - 100 04/08/2020 [facility] mg/dL 4:39 PM CDT LABORATORY Comment: The given reference range is fo r the fasting state. Non-fasting reference range for glucose is 70 - 180 mg/dL. Hours Fasting 4 04/08/2020 4:39 PM CDT [facility] Specimen Anatomical Collection Method / Collection Time Recei peña Time (Source) Location / Volume Laterality Blood Venipuncture / 04/08/2020 3:56 04/08/2020 3:56 Unknown PM CDT PM CDT Iggy Andrade MD LAB_1 Performing Organization Address City/[facility]/ZIP Code Phon e Number [facility] [address] [place], [place] [phone] Lipid Panel and Direct LDL(If Needed) (04/08/2020 3:56 PM CDT) Analysis Performed At Patho logist Time Signature Cholesterol 175 0 - 199 04/08/2020 [facility] mg/dL 4:39 PM CDT LABORATORY Triglyceride 108 <=149 04/08/2020 [facility] mg/dL 4:39 PM CDT LABORATORY HDL Cholesterol 59 >=40 mg/dL 04/08/2020 [facility] 4:39 PM CDT LABORATORY LDL, Calculated 94 <130 mg/dL 04/08/2020 [facility] 4:39 PM CDT LABORATORY Non HDL Chol, 116 mg/dL 04/08/2020 [facility] Calculated 4:39 PM CDT LABORATORY Cholesterol/HDL 3.0 04/08/2020 [facility] Ratio 4:39 PM CDT LABORATORY Hours Fasting 4 04/08/2020 [facility] 4:39 PM CDT LABORATORY Specimen Anatomical Collection Method / Collection Time Recei peña Time (Source) Location / Volume Laterality Blood Venipuncture / 04/08/2020 3:56 04/08/2020 3:56 Unknown PM CDT PM CDT Iggy Andrade MD LAB_1 Performing Organization Address [facility] Code Phon e Number [facility] [address] [place], [place] [phone] documented in this encounter Visit Diagnoses Diagnosis Well adult exam - Primary Routine general medical examination at a health care facility Overweight (HRC) Essential hypertension (HRC) Unspecified essential hypertension Hypokalemia Hypopotassemia documented in this encounter Care Teams Associate Software Application Engineer Relationship Specialty Start Date End Date Sheeba Castillo, LEAD ENTERPRISE ARCHITECT, JAVA LEAD ENGINEER PCP - General Nurse Practitioner 07/20/[id number] [place] [address] MAGD[place] Dinh [id number] documented as of this encounter
--- OUTSIDE RECORDS SUMMARY | 2022-03-20 16:08 | XMS_ITS | Encounter Summary ---
:1975 Author Organization [facility] Address [address] [place] [address] Care Team Providers Name Role Phone Sheeba Castillo APRN, SIERRA Primary Care Provider [phone] Reason for Visit Reason Comments Refill triamterene-hydrochlorothiaz enedelia (MAXZIDE-25) 37.5-25 MG tablet [Pharmacy Med Name: Triamterene-HCTZ Oral Tablet 37.5-25 MG] Encounter Details Date Type Department Care Team Description 02/26/2020 Refill [facility] Iggy Andrade MD Refill Medicine [address] [facility] [address] (triamterene-hydrochloro [address] 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 Patient overdue for Qualifying visit. An office visit is overdue (performed over 14 months ago, required every 12 months). ? Last qualifying visit: 12/19/2018 (with IGGY ANDRADE) (A more recent visit (in Family Practice ? with ESTEBAN KRISHNAMURTHY) was found) ? Next scheduled visit: 03/15/2020 (with IGGY ANDRADE) ?? Review pended order for accuracy. Sign if appropriate. Document if appointment is needed for furtherrefills. Route to care team to notify patient if needed. Requested Prescriptions Pending Prescriptions Disp Refills ??? triamterene-hydrochlorothiazide (MAXZIDE-25) 37.5-25 MG tablet [Pharmacy Med Name: Triamterene-HCTZ Oral Tablet 37.5-25 MG] 90 Tablet 0 Sig: TAKE ONE TABLET BY MOUTH ONE TIME DAILY Interface, Out Surescripts Prov Query - 02/26/2020 2:15 PM CDT triamterene-hydrochlorothiazide (MAXZIDE-25) 37.5-25 MG tablet [Pharmacy Med Name: Triamterene-HCTZ Oral Tablet 37.5-25 MG] Medication started: 08/26/2014 Last ordered by IGGY ANDRADE (350 days ago) QTY: 90, Refills: 3, Sig: take 1 tablet by mouth daily. (changed but equivalent) -> An office visit is overdue (performed over 14 months ago, required every 12 months). Last qualifying visit: 12/19/2018 (with IGGY ANDRADE) (A more recent visit (in Family Practice with ESTEBAN KRISHNAMURTHY) was found) Next scheduled visit: 03/15/2020 (with IGGY ANDRADE) Cr: 0.8 mg/dL on 12/01/2019 Na: 137 mEq/L on 06/06/2019 K: 3.6 mEq/L on 06/06/2019 Powered by Superpedestrian, Reference: [id number], 02/26/2020 2:15:09 PM CDT, [place]: [facility] ([id number]) Interface, Out Mashwork Prov Query - 02/26/2020 2:15 PM CDT The following lab order(s) may be associated with the following Patient Result Comment (Entered by Faye Hinojosa APRN FIELD TECH at 06/07/2019 7:56 AM): BASIC METABOLIC PANEL Hi Iggy - labs are looking better. Hoping you are still feeling well. Take care!Faye documented in this encounter Plan of Treatment Upcoming Encounters Date Type Specialty Care Team Description 05/05/2022 Appointment Chemo Therapy/Infusion Services 09/15/2022 Telemedicine Gastroenterology Eusebio Haines MD [address] [place] [address] (Wo rk) documented as of this encounter Visit Diagnoses Diagnosis Essential hypertension (HRC) Unspecified essential hypertension documented in this encounter Care Teams Sanding Machine Buffer Relationship Specialty Start Date End Date Sheeba Castillo, HIDE HANDLER, FIELD TECH PCP - General Nurse Practitioner 07/20/16 [address] [place] Dinh [phone] documented as of this encounter
--- OUTSIDE RECORDS SUMMARY | 2022-03-20 16:08 | XMS_ITS | Encounter Summary ---
:1975 Author Organization [facility] Address [address], [place] [address] Care Team Providers Name Role Phone Sheeba Castillo APRN, CNP Primary Care Provider [phone] Reason for Visit Reason Comments Infusion Infusion Therapy Plan (Routine) - Authorized Specialty Diagnoses / Procedures Referred By Contact Refer red To Contact Diagnoses Other ulcerative colitis with rectal bleeding (HRC) Eusebio Haines MD [id number] [address] 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 Tolerated infusion well with no issues. Discharged in stable condition. Pt states she felt great the night of her infusion and didn't feel any difference the following day. documented in this encounter Plan of Treatment Upcoming Encounters Date Type Specialty Care Team Description 05/05/2022 Appointment Chemo Therapy/Infusion Services 09/15/2022 Telemedicine Gastroenterology Eusebio Haines MD [address] [place] [address] (Wo rk) documented as of this encounter Visit Diagnoses Diagnosis Other ulcerative colitis with rectal ble eding (HRC) - Primary documented in this encounter Administered Medications Inactive Administered Medications - up to 3 most recent administrations Medication Order MAR Action Action Date Dose Rate Site acetaminophen (TYLENOL) tablet 975 Given 09/22/2019 2:28 PM CDT 975 mg mg 975 mg, Oral, ONCE, On Sun09/22/19 at 1445, For 1 dose sodium chloride 0.9% infusion Started 09/22/2019 2:34 PM CDT 500 mL 20 mL/hr 500 mL, Intravenous, at 20 mL/hr, ONCE, On Sun09/22/19 at 1500, For 1 dose sodium chloride 0.9% injection 10-60 mL Given 09/22/2019 3:33 PM CDT 10 mL 10-60 mL, Intravenous, PRN BEFORE&AFTER MEDICATIONS OR LAB DRAW, Line Patency, Starting on Sun09/22/19 at 1533, Until Sun09/22/19 at 1742, For 1 day vedolizumab (Entyvio) 300 mg in sodium Started 09/22/2019 2:31 PM CDT 300 mg chloride 0.9 % 250 mL infusion 300 mg, Intravenous, Administer over 30 Minutes, ONCE, On Sun09/22/19 at 1515, For 1 dose, BIOTHERAPY - Must be given by chemotherapy/biotherapy certified documented in this encounter Care Teams Client Services Director Relationship Specialty Start Date End Date Sheeba Castillo, RAMP SUPERVISOR, SNOUT PULLER PCP - General Nurse Practitioner 07/20/16 [address] [place] [id number] documented as of this encounter
--- OUTSIDE RECORDS SUMMARY | 2022-03-20 16:08 | XMS_ITS | Encounter Summary ---
:1975 Author Organization [employer] Address [address] [place] [address] Care Team Providers Name Role Phone Sheeba Castillo APRN, SIERRA Primary Care Provider [phone] Reason for Visit Reason Comments RESULTS, TEST Encounter Details Date Type Department Care Team Description 09/03/[address] [facility] Eusebio Pak MD RESULTS, TEST ENDOSCOPY [address] [place], [place] [address]. 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 Parada. 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 The patient confirmed that she had submitted a stool specimen and then was told by lab personnel that the test for Clostridium difficile toxin was canceled because the stool was ???too formed.?? I also sent a staff message out to Dr. Parada to confirmthat the specimens from the patient's recent colon biopsies were sent to be assessed for CMV (not clear from the finalized path report). Once this latter point is confirmed, I will likely enter a PA for vedolizumab. This was discussed the patient during the telephone call today and the patient is in agreement with this plan assuming all of the test results are finalized according to our expectations.All questions were answered today to the patient's satisfaction. documented in this encounter Plan of Treatment Upcoming Encounters Date Type Specialty Care Team Description 05/05/2022 Appointment Chemo Therapy/Infusion Services 09/15/2022 Telemedicine Gastroenterology Eusebio Haines MD [address] [place], [place] [address] (Wo rk) documented as of this encounter Visit Diagnoses Not on filedocumented in this encounter Care Teams Software Support Representative Relationship Specialty Start Date End Date Sheeba Castillo, STATION USHER, HAND SHAPER PCP - General Nurse Practitioner 07/20/16 [address] [place] [address] documented as of this encounter
--- OUTSIDE RECORDS SUMMARY | 2022-03-20 16:08 | XMS_ITS | Encounter Summary ---
:1975 Author Organization [employer] Address [address] [address] Care Team Providers Name Role Phone Sheeba Castillo APRN, CNP Primary Care Provider [phone] Reason for Visit Reason Comments Prior Authorization For Medication budesonide Encounter Details Date Type Department Care Team Description 01/02/2020 Telephone [facility] 6500 Sravan Haines MD Prior Authorization For Gastroenterology [address] Medication (budesonide) [address] 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 Budesonide ER tablets approved. Authorization dates are 12/03/2019 to 01/01/2023. Case number is [id number]. Vickie Garcia LPN - 01/02/2020 4:51 PM CDT MEDICATION PRIOR AUTHORIZATION Medication name: budesonide ER 9 mg Sig: take 1 tablet PO daily Provider name: Yancy Insurance: [employer] Member number: [id number] Prior authorization form completed and faxed along with notes to pharmacy benefits consultant. documented in this encounter Plan of Treatment Upcoming Encounters Date Type Specialty Care Team Description 05/05/2022 Appointment Chemo Therapy/Infusion Services 09/15/2022 Telemedicine Gastroenterology Eusebio Haines MD [address] [place] [address] (Wo rk) documented as of this encounter Visit Diagnoses Not on filedocumented in this encounter Care Teams High Risk Case Manager Relationship Specialty Start Date End Date Sheeba Castillo, TOOL CRIB ATTENDANT, SENIOR ARCHITECTURAL DESIGNER PCP - General Nurse Practitioner 07/20/16 [address] [place] [address] documented as of this encounter
--- OUTSIDE RECORDS SUMMARY | 2022-03-20 16:08 | XMS_ITS | Encounter Summary ---
:1975 Author Organization [employer] Address [address], [place] [address] Care Team Providers Name Role Phone Sheeba Castillo APRN, CNP Primary Care Provider [phone] Reason for Visit Reason Comments Refill Encounter Details Date Type Department Care Team Description 12/02/2019 Refill [facility] 6500 Faye Felton APRN, CNP Refill Gastroenterology [address] Rick 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 cholestyramine (QUESTRAN) 4 GM/DOSE powder [Pharmacy Med Name: Cholestyramine Oral Powder 4 GM/DOSE] 0 Sig: MIX 4 GRAMS IN 4-8 OUNCESOF FLUID AND DRINK ONCE DAILY. MAY INCREASE TO TWICE DAILY IF NOT IMPROVING. SEPERATE AT LEAST 2 HOURS FROM OTHER MEDICATIONS. ALEKS: 08/29/19 F/u: 12/05/19 Chronic med: Yes Labs: Lab Results Component Value Date Cholesterol 192 04/24/2019 HDL Cholesterol 78 04/24/2019 Triglyceride 173 (H) 04/24/2019 LDL, Calculated 79 04/24/2019 Lab Results Component Value Date LDL, Calculated 79 04/24/2019 Pharmacy requesting increase in dispense to 1,134g. Routing to Dr. Haines to review/advise. documented in this encounter Plan of Treatment Upcoming Encounters Date Type Specialty Care Team Description 05/05/2022 Appointment Chemo Therapy/Infusion Services 09/15/2022 Telemedicine Gastroenterology Eusebio Haines MD [address] [place], [place] [address] (Wo rk) documented as of this encounter Visit Diagnoses Not on filedocumented in this encounter Care Teams Health Promotion Manager Relationship Specialty Start Date End Date Sheeba Castillo, BELTING CUTTER, LOGISTICS AND PLANNING MANAGER PCP - General Nurse Practitioner 07/20/16 [address] [place] [id number] documented as of this encounter
--- OUTSIDE RECORDS SUMMARY | 2022-03-20 16:08 | XMS_ITS | Encounter Summary ---
:1975 Author Organization [employer] Address [address], [place] [address] Care Team Providers Name Role Phone Sheeba Castillo APRN, SIERRA Primary Care Provider [phone] Reason for Visit Reason Comments Refill Hyoscyamine + Cholestyramine Encounter Details Date Type Department Care Team Description 01/12/2020 Refill [facility] 6500 Sravan Haines MD Refill (Hyoscyamine + Gastroenterology [address] Cholestyramine) [address] 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 Scriptpended. Routing to practitioner. Cholestyramine: Labs: Cholesterol/LDL: June 06, 2019 Chronic medication: Yes RN able to sign script for chronic med per refill protocol. documented in this encounter Plan of Treatment Upcoming Encounters Date Type Specialty Care Team Description 05/05/2022 Appointment Chemo Therapy/Infusion Services 09/15/2022 Telemedicine Gastroenterology Eusebio Haines MD [address] [place], [place] [address] (Wo rk) documented as of this encounter Visit Diagnoses Not on filedocumented in this encounter Care Teams Sodium Methylate Operator Relationship Specialty Start Date End Date Sheeba Castillo, USED CAR RENOVATOR, ACCOUNT RESOLUTION ANALYST PCP - General Nurse Practitioner 07/20/16 [address] [place] [address] documented as of this encounter
--- OUTSIDE RECORDS SUMMARY | 2022-03-20 16:08 | XMS_ITS | Encounter Summary ---
:1975 Author Organization [employer] Address [address] [address] Care Team Providers Name Role Phone Sheeba Castillo APRN, CNP Primary Care Provider [phone] Reason for Visit Reason Comments Prior Authorization For Medication entyvio Encounter Details Date Type Department Care Team Description 09/04/2019 Telephone [facility]ty [facility] 6500 Sravan Haines MD Prior Authorization For Gastroenterology [address] Medication (entyvio) [address] 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 Closing note. Eusebio Haines MD - 09/11/2019 2:37 PM CDT Acknowledged. Remicade infusions should now be discontinued. Please verify this is the case. Thank you. Manfred Azevedo RN - 09/10/2019 11:01 AM CDT Per therapy plan, PA approved. CPT: J3380 Medication: entyvio DX: L51.811 Auth Dates:09/04/2019 - 09/03/2020 Auth #: [id number] Insurance: Contact: cover my meds/HP Patient scheduled for infusion today 09/10/2019. Routing to Dr. Haines as FYI. Manfred Azevedo RN - 09/04/2019 3:13 PM CDT See phone note 09/02 - Dr. Haines spoke with patient and patient is in agreement with plan. Central team to submit PA for Entyvio. RN will monitor. Eusebio Haines MD - 09/04/2019 1:33 PM CDT I have discontinued the patient's orders for Remicade infusions. The patient has demonstrated a mechanistic failure to control her ulcerative colitis with Remicade as evidenced with ongoing active disease on recent flexible sigmoidoscopy in the setting of therapeutic infliximab blood levels. As such I have switched her to a medication with a different mechanism of action. Orders for vedolizumab (Entyvio) placed and signed in [facility]. Please start the relevant PA process to get this approved. Thanks. documented in this encounter Plan of Treatment Upcoming Encounters Date Type Specialty Care Team Description 05/05/2022 Appointment Chemo Therapy/Infusion Services 09/15/2022 Telemedicine Gastroenterology Eusebio Haines MD [address] [place], [place] [address] (Wo rk) documented as of this encounter Visit Diagnoses Not on filedocumented in this encounter Care Teams Burglar Alarm Assembler Relationship Specialty Start Date End Date Sheeba Castillo, ALUMINUM SHEET CUTTER, TRUMPET PLAYER PCP - General Nurse Practitioner 07/20/16 [address] [place] [id number] documented as of this encounter
--- OUTSIDE RECORDS SUMMARY | 2022-03-20 16:08 | XMS_ITS | Encounter Summary ---
:1975 Author Organization [email or web address] Address [address], [place] [address] Care Team Providers Name Role Phone Sheeba Castillo APRN, RELEASE COORDINATOR Primary Care Provider [phone] Reason for Visit Reason Comments Eye Exam Encounter Details Date Type Department Care Team Description 02/27/2020 Office Visit Faye Dangelo, ZAID Examination of eyes and vision (Primary Dx); Ophthalmology [address] [facility] Severe myopia of both eyes; [address] Regular astigmatism of both eyes [place], [place] [address] [place] [address] (Wo rk) Social History Tobacco Use Types [...] at Date Recorded Female 05/09/2021 7:19 PM PHYSICAL TRAINER documented as of this encounter Patient Instructions Patient InstructionsFaye Cox, OD - 02/27/2020 3:40 PM CDT If you have questions, you can send me a message through [employer] or call [phone]. Call [phone] or [phone] (after hours) with any new or worsening eye symptoms. New glasses prescription given. Refractive Errors Refractive errors occur when light does not focus properly on the retina because of the shape of theeye. The resulting image is blurred. Common refractive errors are myopia (nearsightedness), hyperopia (farsightedness), astigmatism (distorted vision), and presbyopia (aging eyes). Myopia A myopic eye is longer than a normal eye or has a cornea that is too steep, causing light rays to focus in front of the retina instead of on it. With myopia, close objects appear clear, but distant ones appear blurred. Hyperopia A hyperopic eye is shorter than normal or has a cornea that is too flat. The light rays focus beyondthe retina instead of on it. Distant objects appear clear, but close ones appear blurred. Astigmatism The cornea of an astigmatic eye is curved unevenly. Images focus in front of and beyond the retina, causing both close and distant objects to appear blurry. Presbyopia Presbyopia refers to the hardening of the lens that occurs with age. After the age of 40, the lens becomes more rigid and cannot change shape as easily to accommodate near objects. This makes reading and other tasks performed at close range difficult. Presbyopia can occur in combination with any of the other three refractive errors. Refractive errors are usually corrected with eyeglasses or contact lenses. Sometimes surgery is needed or desirable. documented in this encounter Progress Notes Faye Cox, OD - 02/27/2020 3:40 PM CDT Idania Duarte presents for an eye exam. She is alert, well appearing and in no apparent distress. Assessment and Plan: ICD-10-CM 1. Examination of eyes and vision Z01.00 2. Severe myopia of both eyes H52.13 3. Regular astigmatism of both eyes H52.223 . Update glasses Rx. Large change in cylindrical power. Rechecked Rx multiple times and pt appreciated the change in Rx. Taped mask during refraction to ensure phoropter was not fogging. Cornea looks clear, no obvious edema. Continue to monitor for change. RTC upon vision changes. - New spectacle Rx given. Follow-up in 1 year for eye exam; sooner as needed. The printed AVS handout was given. Call with anychanges. documented in this encounter Plan of Treatment Upcoming Encounters Date Type Specialty Care Team Description 05/05/2022 Appointment Chemo Therapy/Infusion Services 09/15/2022 Telemedicine Gastroenterology Eusebio Haines MD [address] [place] [address] (Wo rk) documented as of this encounter Visit Diagnoses Diagnosis Examination of eyes and vision - Primary Severe myopia of both eyes Myopia Regular astigmatism of both eyes Regular astigmatism documented in this encounter Care Teams Mold Maker Apprentice Relationship Specialty Start Date End Date Sheeba Castillo, DRAWBENCH OPERATOR HELPER, RELEASE COORDINATOR PCP - General Nurse Practitioner 07/20/16 [address] [place] [id number] documented as of this encounter
--- OUTSIDE RECORDS SUMMARY | 2022-03-20 16:08 | XMS_ITS | Encounter Summary ---
:1975 Author Organization [email or web address] Address [address] [place] [address] Care Team Providers Name Role Phone Sheeba Castillo APRN, SIERRA Primary Care Provider [phone] Reason for Visit Reason Comments RESULTS, TEST Encounter Details Date Type Department Care Team Description 09/03/2019 Telephone [facility] Eusebio Pak MD RESULTS, TEST ENDOSCOPY [address] [facility] [place] [address] [place], [place] [address]451 [phone] Social History Tobacco Use Types Packs/Day Years [...] at Date Recorded Female 05/09/2021 7:19 PM IT CORPORATE RECRUITER documented as of this encounter Nursing Notes Eusebio Haines MD - 09/11/2019 2:49 PM CDT Thanks. Charles Duran RN - 09/03/2019 4:38 PM CDT Couple of things to answer question below. 1. Container test is just a gabriel so orders in Epic do not close at end of day if patient does not return specimen the same day. 2. Patient did turn in stool specimen but it was formed so c-diff study was not run. Eusebio Haines MD - 09/03/2019 9:50 AM CDT I recently saw this patient in clinic. She has what appears to be ulcerative colitis not responding to Remicade treatment which was initiated late this past year. She has had a flexible sigmoidoscopy couple of days ago which demonstrates persistent inflammatory bowel disease; biopsy results are still pending from the flexible sigmoidoscopy but should be finalized today. She has a detectable therapeutic infliximab level without antibodies. As a part of her workup with anticipation of having to changeher biologic treatment, I ordered a Clostridium difficile stool test to be done. The patient's submitted this but the laboratory finalized result and calls it a ???container test?? . There is absolutely no documentation as to what the results of the test are and if it was not run, why it was not run. Can someone please look into this so that I can appropriately document this patient is nonresponse toRemicade and move on to initiating the PA for a different biologic treatment. Thanks. documented in this encounter Plan of Treatment Upcoming Encounters Date Type Specialty Care Team Description 05/05/2022 Appointment Chemo Therapy/Infusion Services 09/15/2022 Telemedicine Gastroenterology Eusebio Haines MD [address] [place] [address] (Wo rk) documented as of this encounter Visit Diagnoses Not on filedocumented in this encounter Care Teams Health/Safety Job Titles Relationship Specialty Start Date End Date Sheeba Castillo, PLANT CARE WORKER, ACTIVITY AID PCP - General Nurse Practitioner 07/20/[address] [place] [id number] documented as of this encounter
--- OUTSIDE RECORDS SUMMARY | 2022-03-20 16:09 | XMS_ITS | Encounter Summary ---
:1975 Author Organization [employer] Address [address], [place] [address] Care Team Providers Name Role Phone Sheeba Castillo APRN, CNP Primary Care Provider [phone] Reason for Visit Reason Comments Skin Exam Encounter Details Date Type Department Care Team Description 07/03/2019 Office Visit Julio C Crisostomo Actinic ker atosis (Primary Dx); Dermatology AMD Sun-damaged skin; [address] [place] Dermal hypers ensitivity reaction; [facility] Multiple pigmented nevi; [place], [place] H/O dysp lastic nevus; [id number] H/O nonmelanoma skin cancer; [phone] Neoplasm of ski n; (Work) Basal cell carcinoma (BCC), unspecified site Social History Tobacco Use Types Packs/Day Years [...] at Date Recorded Female 05/09/2021 7:19 PM CLAIMS COUNSEL documented as of this encounter Patient Instructions Patient InstructionsChelsey Knowles RN - 07/03/2019 2:45 PM CST Wound Care Instructions - Shave Biopsy Leave the dressing on and keep dry for the first 24-48 hours. When it is time to remove the bandage, shower with your bandage on, so you do not get soap or germs in the open wound. When you get out of the shower gently remove the wet dressing and cleanse the area with Plain White Vinegar or Dakin's solution on a Q-tip or cotton ball. Then apply a small amount of Vaseline/Petroleum Jelly or Aquaphor and a new clean dressing. Keeping the wound covered with ointment and a dressing is very important. Leaving the wound open to air can cause drying, scabbing, and delay healing. Continue daily cleaning and dressing changes until there is no longer any discharge on your bandage.This can vary with the site, depth of biopsy, and size, but generally 1-4 weeks. Activity. Relax and take it easy for the first 48 hours. Avoid vigorous exercise, heavy lifting, or any activity that would raise your blood pressure and heart rate. Post-operative pain. Typically, the pain after the anesthesia wears off is mild. You may take Tylenol (acetaminophen) but avoid aspirin, Advil or Motrin (ibuprofen), and Aleve since these products can cause more bleeding. Swelling: Some swelling of the surgical area is normal. Rapid swelling of the wound is unusual. Please call the phone number below if this happens. Use ice pack around the bandage area as needed to help with pain and swelling, but remember to keep the bandage dry. Bleeding: During the first 24 to 48 hours, a small amount of bleeding around the dressing may be noticed. You may re-enforce the bandage with more tape if needed. If bleeding or drainage continues or saturates the bandage, apply direct firm pressure over the bandage and wound for 15 minutes. Repeat ifneeded. If bleeding continues, please call. Try to avoid removing the bandage even if bleeding is noticed, since this may lead to even more bleeding. Infection: Watch for any signs of infection including worsening redness, swelling, warmth, and tenderness around the wound. Watch for any fevers or chills. Some redness around the wound is expected. Ifyou are concerned about an infection, please call. Phone numbers: Dr. Julio C Coe [facility] MARIO Prado MA Direct dial M- 7:30-4:30 Fri 8-12 or call through the nurse triage line if urgent. Dermatology Nurse Line: hours 7:30 AM to 5 PM, M- (except holidays) Liquid Nitrogen Treatment (Cryotherapy) You May Experience: ??? Stinging and mild pain while the growth is being frozen and then thaws ??? The most discomfort occurs during the first five to 10 minutes of the procedure, but can sometimes last longer. ??? A blister, sometimes a blood blister, may form. If this occurs, you may pop the blister with a clean needle, but leave the roof of the blister intact on the skin. If this does happen, keep the areacovered with a Band-Aid and use Vaseline or antibiotic ointment. Areas that are prone to blistering are the eyelids and hands. The blisters and swelling are part of the treatment and will gradually heal. ??? You also may experience some redness, swelling, tenderness, weeping, or crusts/scabs. ??? It is uncommon to have any white, green, or yellow fluid drainage or any sign of an apparent infection, please call the Dermatology Nurse Line if you have concerns [phone] Caring for the Treated Sites: ??? No special care is needed, you can wash as usual and return to your normal skin care routine. ??? You may use makeup or other cosmetics on the treated areas. ??? Try not to pick at, itch, or scrub the area. ??? If the treated area feels sore or irritated, you can keep it covered or even use some itrp-sjw-vuizygn hydrocortisone or plain vaseline to make it feel better. ??? Avoid excessive sun exposure to these areas, this can result in persistent darkening at the treated sites. Treatment Goals: ??? To cause the skin growth to fall off with the scab, leaving healthy new skin. ??? This new skin is typically cartographic drafter, and will usually blend in color-ibarra over time. ??? Sometimes, growths do not respond to one treatment. If you have concerns, please make a follow-up appointment. SKIN PROTECTION TIPS: At one time, a lot of sun exposure was thought to be healthy. But today, with the thinning of the ozone layer and increased ultraviolet light, exposure to the sun can be dangerous without proper protection. When UV rays come into contact with skin, they damage skin cells, causing freckles, wrinkles, sunburn and even skin cancer, the most commonly diagnosed cancer in the [place]. UVA rays, a type of UV light, penetrate the skin deeply and are primarily responsible for premature wrinkling, whileUVB rays are responsible for sunburn and skin cancer. How to Protect Your Skin Cover Up: Wear protective clothing and hats when out in the sun. Choose light colors, which do not absorb heatas much as dark colors, and choose loose-fitting clothing made from tightly woven fabric. UV protectant clothing is now available at most outdoor stores and on-line. Use Sun Blocks: Make sure you use SPF 30 or higher sun block whenever outside. It takes as little as 15 minutes of sun exposure to harm the skin, so keep a bottle of sunscreen by the door so the child or the parent will remember to reapply whenever going out. Wear sunscreen even on overcast days. The best sun blocks c ontain Zinc Oxide and/or Titanium Dioxide. 1. Apply at least one ounce or an espresso-shot worth of sunscreen 30 minutes before activity so your skin has time to absorb it. 2. Make sure it gets under the edges of your clothing. 3. Reapply every 2 hours; sooner if you are sweating profusely or swimming. Seek Shade: When the sun is nearly directly overhead, especially between 10:00 am and 3:00 pm, try to limit sun exposure. Protect Your Eyes: Wrap around polarized sunglasses that block 100% of UVA and UVB light are best. Protect Your Lips: Lips can never dawn, but they easily burn. Use protective lip balm every day and reapply it often. Ban the Dawn: There is no such thing as a safe dawn! Do not use tanning beds. If one wishes the brown look of a dawn, use bronzers or sunless tanning lotion. Watch out: If you notice any freckles, moles, or other skin spots that grow larger than a pencil eraser or change shape or color, see a provider for evaluation. Vitamin D: Vitamin D is obtained through exposure to the sun. Limiting sun exposure is recommended, therefore, you may need to supplement with Vitamin D. The recommended adult dose is 1,000-2,000 IUs, once daily. MS COUNSEL documented in this encounter Progress Notes Julio C Coe MD - 07/03/2019 2:45 PM CST DERMATOLOGY VISIT CC: Chief Complaint Patient presents with ??? Skin Exam Subjective: Idania Duarte is a 44 y.o. female here today for skin examination. She is referred by Dr. Andrade. She was last seen in Dermatology by Rylee Schwartz in November 2014. She has a history of BCC on left upper thigh and severely atypical melanocytic proliferation on the mid abdomen in 2008. Past medical history pertinent for ulcerative colitis. She recently started Remicade, she received her 3rd infusion on June 13. 1-2 weeks after treatment she noticed the development of very tiny,itchy bumps on the lower extremities. She denies any other new medications. No change in her personal care products. She has also not noticed new, red spots that have developed on the right upper arm, left breast, right distal lateral lower leg. Otherwise well without further skin complaints. Family history melanoma in her brother. Objective: Pleasant and cooperative, no acute distress. Skin examination of the head, neck, chest, back, abdomen, 4 extremities was performed. There has widespread photodamage over the face, trunk, and extremities. She has greater than 100 melanocytic nevi with benign features on dermoscopy. On the mid upper back, within a tattoo, she has a 6x 9 mm, brown papule. This is masked by the tattoo and does have a slightly irregular border. Compared to previous photo documentation the lesion is stable in size. On the right medial breast there is 10 mm skin pink scaling papule. On the right upper arm a 6 mm pink scaling papule on on the right distal lateral lower leg 7 mm pink scaling papule. She has a well-healed scar on the abdomen and left thigh. She has few, tiny, excoriated, domed skin colored papules with trace scale located over the lower extremities. On the left cheek she has 3 pink gritty papules. A: Idania was seen today for skin exam. Diagnoses and all orders for this visit: Actinic keratosis Sun-damaged skin Dermal hypersensitivity reaction Multiple pigmented nevi H/O dysplastic nevus H/O nonmelanoma skin cancer Neoplasm of skin (HRC) - Surgical Path, Dermatology - Initial shave bx (23487) P: Clinical impression reviewed with patient. Sun protection and sunscreen recommended. Skin cancer awareness reviewed. 3 actinic keratosis on left cheek were treated with liquid nitrogen cryotherapy, single freeze thaw cycle. Postop wound care provided. After written informed consent shave biopsy was performed of the lesion on the left breast. Differential includes BCC. Shave removal was performed of the 6 mm lesion on the right upper arm the 7 mm lesion on the right distal lateral lower leg. Differential includes BCC. All 3 sites were treated with electrodesiccation and curettage with a 4 mm non disposable curette. Vaseline and bandage applied. Postop wound care provided. Dermal hypersensitivity reaction on the legs: Concerning for reaction to Remicade. If the rash failsto resolve, I recommend she discuss switching to an alternative agent with her lmsw. Topically she can start triamcinolone 0.1% ointment twice daily. Recommend Zyrtec 10 mg in the morning and Benadryl 25 mg in the evening. Return to clinic in 3 months or sooner should concerns arise Julio C Coe MD Dermatology - [facility] 07/03/2019 FINAL DIAGNOSIS A. Skin, left medial breast, shave: - Basal cell carcinoma, superficial and nodular patterns, present at tissue margin. ?? B. 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 ?? C. Skin, right distal lateral lower leg, shave: - Basal cell carcinoma, superficial pattern, closely approximating sampled tissue margin. This note was created using voice recognition software and may contain unintended word substitutions. MS COUNSEL Chelsey Knowles RN - 07/03/2019 2:45 PM CST Images from the original note were not included. MS COUNSEL Julio C Coe MD - 07/03/2019 2:45 PM CST Please notify patient. Sites A and C were both basal cell carcinomas, treated at visit, no further treatment needed. 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 Okay to monitor sites. MS COUNSEL documented in this encounter Plan of Treatment Upcoming Encounters Date Type Specialty Care Team Description 05/05/2022 Appointment Chemo Therapy/Infusion Services 09/15/2022 Telemedicine Gastroenterology Eusebio Haines MD [address] [place] [address] (Wo rk) documented as of this encounter Procedures Procedure Name Priority Date/Time Associated Comments Diagnosis SURGICAL PATHOLOGY, Routine 07/03/2019 3:09 PM Neoplasm of ski n Results for this DERMATOLOGY CLAIMS COUNSEL procedure are i n the results section. documented in this encounter Results Surgical Path, Dermatology (07/03/2019 3:09 PM CLAIMS COUNSEL) Component Value Ref Test Analysis Performed At [facility] gist Range Method Time Signature Case Report Surgical Pathology Report ? Case: [id number] ? 07/07/2019 [facility] Authorizing Provider: ??Julio C Talamantes MD ? Collected: ? 07/03/2019 03:09 PM ? 4:23 PM DERMATOLO GY Ordering Location: ? [facility] ? Received: ?07/04/2019 08:25 AM ? CLAIMS COUNSEL Pathologist: ? Giovani Alvarez MD ? Specimens: ?? A) - Skin shav e, left medial breast ? B) - Skin shave, right upper arm ? C) - Skin shave, right distal lateral lower leg ? FINAL A. Skin, left medial breast, shave: 06/25 [facility] Electronically DIAGNOSIS - Basal cell carcinoma, supe rficial and nodular patterns, present at tissue margin. 4:23 PM DERMATOLOGY signed by Ousmane spears, CLAIMS COUNSEL Giovani Patel MD on B. 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 4:23 PM C. Skin, right distal lateral lower leg, shave: - Basal cell carcinoma, supe rficial pattern, closely approximating sampled tissue margin. Clinical A. 10mm, BCC 07/07/2019 [facility] Information B. 6mm, BCC 4:23 PM DERMATOLOGY C. 7mm, BCC CLAIMS COUNSEL Gross A. Received in formalin, lab eled with the patient's name and Skin shave, left medial breast is a 8 x 7 x 1 mm shave biopsy of skin. The specimen is marked with green ink, bisected, and submitted entirely in one cassette. 07/07/2019 [facility] 3800 Description 4:23 PM DERMATOLOGY B. Received in formalin, lab eled with the patient's name and Skin shave, right upper arm is a 9 x 7 x 1 mm shave biopsy of skin. The specimen is marked with black ink, bisected, and submitted entirely in one cassette. CLAIMS COUNSEL C. Received in formalin, lab eled with the patient's name and Skin shave, right distal lateral lower leg is a 9 x 7 x 1 mm shave biopsy of skin. The specimen is marked with blue ink, trisected, and submitted entirely in one cassette. NW Microscopic Microscopic 07/07/2019 [facility] 3800 Description examination is 4:23 PM DERMATOLOGY performed. CLAIMS COUNSEL Embedded 07/07/2019 [facility] 3800 Images 4:23 PM DERMATOLOGY CLAIMS COUNSEL Specimen (Source) Anatomical Collection Method Collection Time Re ceived Time Location / / Volume Laterality Skin SHAVE BIOPSY OF 07/03/2019 3:09 0 8:25 SKIN / Unknown PM CLAIMS COUNSEL AM CLAIMS COUNSEL Skin structure SHAVE BIOPSY OF 07/03/2019 3:09 020 8:25 (body structure) SKIN / Unknown PM CLAIMS COUNSEL AM CLAIMS COUNSEL Skin structure SHAVE BIOPSY OF 07/03/2019 3:09 020 8:25 (body structure) SKIN / Unknown PM CLAIMS COUNSEL AM CLAIMS COUNSEL Julio C Coe MD LAB PATHOLOGY Performing Organization Address City/State/[facility] Code Phon e Number [facility] 3800 DERMATOLOGY [address] [place], [place] [phone] documented in this encounter Visit Diagnoses Diagnosis Actinic keratosis - Primary Sun-damaged skin Other chronic dermatitis due to solar ra diation Dermal hypersensitivity reaction Multiple pigmented nevi Benign neoplasm of skin, site unspecifie d H/O dysplastic nevus Personal history of diseases of skin and subcutaneous tissue H/O nonmelanoma skin cancer Personal history of other malignant neop lasm of skin Neoplasm of skin (HRC) Neoplasm of unspecified nature of bone, soft tissue, and skin Basal cell carcinoma (BCC), unspecified site documented in this encounter Care Teams Machinist/Machine Builder Relationship Specialty Start Date End Date Sheeba Castillo, SLURRY CONTROL TENDER, MUSEUM REGISTRAR PCP - General Nurse Practitioner 07/20/16 [address] [address] [place] [address] documented as of this encounter
--- OUTSIDE RECORDS SUMMARY | 2022-03-20 16:09 | XMS_ITS | Encounter Summary ---
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 Please look over your treatment plan. I've sent your script to the pharmacy you requested.Request a Call Back if you have any concerns or questions.Take Care~ Neema CAROUSEL ATTENDANT Treatment Plan Let???s help you get some relief from your cough right away. I???ve included a prescription inhaler to open up your airways and allow for easier breathing. I [facility] prescription [id number]. I've also listed a few of the best ways to treat your symptoms and some additional self-care tips. Because this infection is viral, an antibiotic won???t be effective at helping your cough or treating the virus. If your symptoms don???t improve after 3 days, or if you have questions, select Help to Request a Call Back and we???ll discuss your next steps for free. Order(s) Ventolin HFA 90 mcg/actuation HFA aerosol inhaler Inhale 2 puff inhl every four to six hours as needed for 7 days Note: Refills: None Sent To: [id number] [place] [address] Treatment Plan Self Care Tip Topics You???re Contagious How to Use Albuterol Drink Water to Thin Mucus What to Expect Let???s work on relieving your cough, kicking this viral infection and getting you feeling more likeyourself again. If you follow the recommendations I've made on the Treatment tab, your symptoms should improve in about 3 days. If your symptoms don't improve after 3 days, select Help to Request a Call Back and we'll discuss your next steps for free. What to Watch Out For Give us a call immediately if you experience: ??? Shortness of breath ??? Wheezing that affects daily activities (walking, dressing, bathing) ??? Chest tightness or pain with deep breaths ??? High fevers ??? Worsening cough ??? Weakness ??? Loss of appetite ??? Body Aches My Conditions, Orders, Allergies as of June 20, 2019 Standard condition list None Current orders Ventolin HFA (albuterol sulfate) fluticasone propionate (fluticasone propionate) benzonatate (benzonatate) Remicade (infliximab) Necon 0.5/35 (28) (norethindrone-ethin estradiol) Allergies None [facility] [employer] We are an online clinic open 15/01. If you have any questions or comments about this visit, please call or email [email or web address]. SUPERVISOR FAMILY MEDICINE, ADRIANA PROVIDER - 06/17/2019 12:00 AM CST adriana Treatment Plan Diagnosis Viral Upper Respiratory Infection Visit Date June 17, 2019 Idania Duarte Date of : 79 Provider Jerilyn Ham, Nurse Practitioner Note From Provider Marcin Emerson, Thank you for choosing [facility]. I'm sorry we were not able to connect by telephone. I made this plan just for you! There are several viral upper respiratory infections going around this time of year and many things we can do to relieve your symptoms. Take ibuprofen (600-800mg every 6-8 hours) to settle pain/inflammation; Use fluticasone nasal spray to help with sinus inflammation; take guaifenesin (plain, generic Mucinex) to keep mucus thin and easier to clear out; drink warm lemonade with honey as a natural cough remedy and very soothing on your throat; use the prescription cough capsules at night. Review the self -are tips for more helpful suggestions, and check back with us if you're not improving with these measures. We can adjust your plan at no charge, anytime- we're here 15/01! Be well. SIERRA Jean-Baptiste Treatment Plan Let???s get you feeling better in the next 24 hours by using a special blend of umqk-gdt-iqzeula products to reduce your pain and other common VURI symptoms such as inflammation, fever, and cough. I???ve also sent a prescription strength cough suppressant to [facility]. Though a great cough remedy for adults, this prescription is not safe for children and should be kept out of reach. Because this infection is viral, an antibiotic won???t be effective at soothing your symptoms or treating the virus. If your symptoms don't improve after 3 days, or if you have questions, select Help to Request a Call Back and we'll adjust your treatment for free. Order(s) benzonatate 100 mg capsule Take 2 capsule oral at bedtime as needed for 10 days Note: Swallow capsules whole. Refills: None fluticasone propionate 50 mcg/actuation spray,suspension [place] 1-2 spray nasl once a day as needed for 30 days Note: Refills: 11 Sent To: [facility] [place] [address] [place] [address] Treatment Plan Self Care Tip Topics Symptom Relief with Ibuprofen and an Expectorant Soothing Foods and Drinks Decongestant with an Antihistamine Steam Therapy Humidify What to Expect Your symptoms are often related to how far along you are with your viral upper respiratory infection. Early on you may have fever, fatigue or a sore throat. Symptoms can progress to nasal congestion with sinus pain and pressure, which often turns into a wet, productive cough. The tail end of a VURI typically includes a dry cough which may last 2-3 weeks after the other symptoms have passed. If you follow the recommendations I made on the Treatment tab, your current symptoms should improve within 3 days. As your symptoms evolve, follow the suggestions in your treatment plan to feel more like yourself. A typical VURI may take as long as 2-3 weeks to clear up fully.If your symptoms don???t improve after 3 days, if you have questions, or if you have the symptoms below, select Help to Request a Call Back and we???ll adjust your treatment for free. What to Watch Out For Give us a call immediately if you experience: ??? Shortness of breath ??? Wheezing ??? Difficulty swallowing ??? High fevers ??? Worsening cough ??? Worsening or persistent sore throat ??? Presence of white or yellow spots on your tonsils ??? Presence of red spots on the roof of your mouth or back of your throat ??? Tender, swollen glands along with swollen tonsils ??? Abdominal pain, nausea or vomiting ??? Rash on your trunk or arms My Conditions, Orders, Allergies as of June 17, 2019 Standard condition list None Current orders fluticasone propionate (fluticasone propionate) benzonatate (benzonatate) Remicade (infliximab) Necon 0.5/35 (28) (norethindrone-ethin estradiol) Allergies None [facility] Information [facility] [employer] We are an online clinic open 15/01. If you have any questions or comments about this visit, please call or email [email or web address]. SUPERVISOR documented in this encounter Plan of Treatment Upcoming Encounters Date Type Specialty Care Team Description 05/05/2022 Appointment Chemo Therapy/Infusion Services 09/15/2022 Telemedicine Gastroenterology Eusebio Haines MD [address] [place] [address] (Wo rk) documented as of this encounter Visit Diagnoses Not on filedocumented in this encounter Care Teams Plant Production Worker Relationship Specialty Start Date End Date Sheeba Castillo, HOUSE WIRER HELPER, COURT BAILIFF PCP - General Nurse Practitioner 07/20/16 [address] [place] [address] documented as of this encounter
--- OUTSIDE RECORDS SUMMARY | 2022-03-20 16:09 | XMS_ITS | Encounter Summary ---
:1975 Author Organization [facility] Address [address] [address] Care Team Providers Name Role Phone Sheeba Castillo DOUBLING MACHINE OPERATOR, STORE CUSTODIAN Primary Care Provider [phone] Reason for Visit Reason Comments FOLLOW-UP, TEST RESULTS Encounter Details Date Type Department Care Team Description 08/04/2019 [facility]phone [facility] [address] OLLOW-UP, TEST Gastroenterology DOUBLING MACHINE OPERATOR, STORE CUSTODIAN RESULTS [address] [place], [place] Rick [address] [address] [place], [place] [phone] (Wo rk) Social History Tobacco Use Types [...] at Date Recorded Female 05/09/2021 7:19 PM SITE DIRECTOR documented as of this encounter Nursing Notes Beth Nichols RN - 08/15/2019 3:43 PM CST Pt notified and verbalized understanding of below. Pt doesn't want to do Prednisone at this time. Her pharmacy doesn't have medication in stock but will have on Sunday. She is OK to wait until then. Ptto update us in 1 week after using enemas. Pt verbalized understanding and will call sooner if anything changes. DIRECTOR Beth Nichols RN - 08/15/2019 2:35 PM CST Left message to call back. DIRECTOR Faye Hinojosa APRN, SIERRA - 08/15/2019 12:34 PM CST We could try cortenemas to try and reach higher into the colon to help with her symptoms. This is a liquid, would try to get higher up into the colon which may be more effective than suppository. I sent those in. However, if she is still really struggling, we may need to restart prednisone. What does she think about that to allow time for Remicade to work at the higher dose? I know we want to try to avoid prednisone, but I'm worried about her symptoms and trying to get her some relief before the weekend. DIRECTOR Beth Nichols RN - 08/15/2019 11:56 AM CST Update: Pt is frustrated. Pt is hardly eating because the increase in her BM's. Pt states that she is having BM's x 12 daily. There is blood again x 2 days. She is only eating salentine crackers at this time due to eating makes things worse. Intermittent abdominal pain that she rates at a 2/10. She does have bloating. No nausea/vomitng. No fever/chills. She states she takes the Questran powder 2 scoops at bedtime, Canasa suppositories 1 at bedtime. She states the hydrocortisone suppositories made things worse so she stopped this. Pharmacy updated. Appointment 08/27/19. [place] DIRECTOR Faye Hinojosa APRN, CNP - 08/12/2019 3:56 PM CST Ok, so some things sound a bit better. Agree with plan to call back in a few days, thanks! Manfred Celestin RN - 08/12/2019 3:48 PM CST Called patient and informed of message below, verbalized understanding. Patient overall feels unsureif she notices an improvement. Continues to report urgency and rushing to restroom. Reporting 10-15 bowel movements daily. No longer having nocturnal stools. Also bleeding has subsided. Patient will call with an update again in a couple days. Faye Joy APRN, CNP - 08/12/2019 3:42 PM CST Please call [facility]. Any improvement after the higher Remicade dose last Sunday? Vickei Segovia LPN - 08/08/2019 9:05 AM CST Called [facility] to check on status of prior authorization. Dosage increase is approved for date range 08/07/2019 to 09/22/2020, authorization # [id number]. Notified infusion center of approval and updated referral. Notified patient of approval as well. Vickie Segovia LPN - 08/07/2019 4:24 PM CST Prior authorization submitted to [facility] as urgent. Let patient know prior authorization was submitted and that we should have answer by end of day. Called [facility] and spoke with Ronaldo in prior authorizations and let him know that this is urgent and this is for infusion tomorrow. Requested notification fax before end of day. Faye Joy APRN, CNP - 08/05/2019 4:47 PM CST Attempted to call [facility], no answer left message to call back. Her Remicade level is 1. This is why she is having increased symptoms. See Askert message with her significant symptoms. She was previously on 5mg/kg every 8 weeks. Her first maintenance dose is Sunday. She needs to increase to 10mg/kg every 8 weeks. She should get 10mg/kg on Sunday. I updated her therapy plan. Please initiate PA OSMANY. DIRECTOR Carlie Logan RN - 08/05/2019 9:41 AM CST Left message to call back. DIRECTOR Faye Hinojosa APRN, CNP - 08/04/2019 3:24 PM CST This is sufficient, doesn't need repeat labs Sunday. I will update her once Remicade level is back. Could I get a symptom update? Thank you. DIRECTOR Marti Pandya RN - 08/04/2019 3:04 PM CST Pt returned call, given msg below, states understanding. Pt states she had the Remicade trough level drawn today along with the rest of her labs. EL BOX SEALING MACHINE CATCHER: Is this sufficient or should pt repeat lab on Sunday? DIRECTOR Manfred Azevedo RN - 08/04/2019 12:04 PM CST Left message to call back DIRECTOR Faye Hinojosa APRN, CNP - 08/04/2019 9:01 AM CST Please call Idania. Her stool studies are negative for infection. Her fecal calprotectin is elevated again, >1250. I would like to check her Remicade trough level this week BEFORE her infusion on 08/08. Those labs have already been ordered. Pending those results, she may need a dose adjustment. Please let me know how she is feeling. DIRECTOR documented in this encounter Plan of Treatment Upcoming Encounters Date Type Specialty Care Team Description 05/05/2022 Appointment Chemo Therapy/Infusion Services 09/15/2022 Telemedicine Gastroenterology Eusebio Haines MD [address] [place], [place] [address] (Wo rk) documented as of this encounter Visit Diagnoses Not on filedocumented in this encounter Care Teams Lab Nurse Relationship Specialty Start Date End Date Sheeba Castillo APRN, SIERRA PCP - General Nurse Practitioner 07/20/16 [address] [place] [phone] documented as of this encounter
--- OUTSIDE RECORDS SUMMARY | 2022-03-20 16:09 | XMS_ITS | Encounter Summary ---
:1975 Author Organization [employer] Address [address], [place] [address] Care Team Providers Name Role Phone Sheeba Castillo APRN, WING COMMANDER Primary Care Provider [phone] Reason for Visit Reason Comments Refill canasa Encounter Details Date Type Department Care Team Description 07/01/2019 Telephone [facility] [address] PRN, Refill (canasa) Gastroenterology WING COMMANDER [address] [place], [place] [address] [address] [place], [place] [phone] (Wo rk) Social History Tobacco Use Types [...] at Date Recorded Female 05/09/2021 7:19 PM EXHIBIT ARTIST documented as of this encounter Nursing Notes Charles Duran, RN - 07/01/2019 3:18 PM CST Voice mail received requesting refill for Canasa. Last office visit- 05/28/19 Next office visit- Next office visit recommended- as above Required labs- CBC, Creatinine- both were done 06/06/2019 Marked chronic- yes Refill sent in to cover until next appointment (3 months) BIT ARTIST documented in this encounter Plan of Treatment Upcoming Encounters Date Type Specialty Care Team Description 05/05/2022 Appointment Chemo Therapy/Infusion Services 09/15/2022 Telemedicine Gastroenterology Eusebio Haines MD [address] [place] [address] (Wo rk) documented as of this encounter Visit Diagnoses Diagnosis Ulcerative pancolitis with rectal bleedi ng (HRC) - Primary documented in this encounter Care Teams Payroll Assistant Relationship Specialty Start Date End Date Sheeba Castillo, FINISHING RANGE SUPERVISOR, WING COMMANDER PCP - General Nurse Practitioner 07/20/16 [address] [place] [id number] documented as of this encounter
--- OUTSIDE RECORDS SUMMARY | 2022-03-20 16:09 | XMS_ITS | Encounter Summary ---
:1975 Author Organization [employer] Address [address] [address] Care Team Providers Name Role Phone Sheeba Castillo APRN, ROLL ON MAN Primary Care Provider [phone] Reason for Visit Reason Comments Wound Check Encounter Details Date Type Department Care Team Description 07/08/2019 Nursing Visit [facility] Nurse, [place] Visit for wound check [address] [facility] (Primary Dx) [place], [place] [address] Social History Tobacco Use Types Packs/Day Years [...] Date Recorded Female 05/09/2021 7:19 PM DIRECTOR DATA ARCHITECTURE documented as of this encounter Progress Notes Chelsey Knowles RN - 07/08/2019 3:35 PM CST Patient stopped by javascript front end developer to see if a nurse could look at her right lower leg ED&C site, shewas concerned it may be infected. She had a BCC treated with an ED&C procedure on 07/03/19 and hasbeen cleansing the area and keeping it covered with vaseline and a bandage as recommended. The treatment site does not look infected today, minimal redness at the wound edges, some erythema and swelling noted, no significant drainage or pus, it is not warm to the touch. Patient reports her lower legs do tend to swell with standing on her feet, especially after working. We discussed swellingcan impede healing as well as lower leg wounds are often slower to heal. She will continue to monitor site and let us know if she has any more questions or concerns. CTOR DATA ARCHITECTURE documented in this encounter Plan of Treatment Upcoming Encounters Date Type Specialty Care Team Description 05/05/2022 Appointment Chemo Therapy/Infusion Services 09/15/2022 Telemedicine Gastroenterology Eusebio Haines MD [address] [place], [place] [phone] (Wo rk) documented as of this encounter Visit Diagnoses Diagnosis Visit for wound check - Primary Encounter for other specified aftercare documented in this encounter Care Teams Stockroom Coordinator Relationship Specialty Start Date End Date Sheeba Castillo, VEHICLE TRIMMER, ROLL ON MAN PCP - General Nurse Practitioner 07/20/16 [address] [place] [id number] documented as of this encounter
--- OUTSIDE RECORDS SUMMARY | 2022-03-20 16:09 | XMS_ITS | Encounter Summary ---
:1975 Author Organization [facility] Address [address] [address] Care Team Providers Name Role Phone Sheeba Castillo APRN, DIAMOND SIZER Primary Care Provider [phone] Reason for Visit Reason Comments Infusion Infusion Therapy Plan (Routine) - Closed Specialty Diagnoses / Procedures Referred By Contact Refer red To Contact Diagnoses Ulcerative rectosigmoiditis with rectal bleeding (HRC) Eileen Bernabe, [facility] Gastroenterology RN RADIATION ONCOLOGY, DIAMOND SIZER [address] [address] [address] [place] [address] [place] [address] Referral ID Status Reason Start Date Expiration Date Visits Requ ested Visits Authorized [id number] Closed 08/07/2019 09/23/[phone] Encounter Details Date Type Department Care Team Description 06/13/2019 Hospital Encounter [facility] [place] [address] [facility] rectal bleeding (HRC) [place] [address] (Primary Dx) [phone] Social History Tobacco Use Types Packs/Day Years [...] at Date Recorded Female 05/09/2021 7:19 PM CALL PERSON documented as of this encounter Last Filed Vital Signs Vital Sign Reading Time Taken Comments Blood Pressure 130/88 06/13/2019 1:02 PM CALL PERSON Pulse 101 06/13/2019 1:02 PM CALL PERSON Temperature 36.7 ??C (98.1 ??F) 06/13/2019 1:02 PM CALL PERSON Respiratory Rate - - Oxygen Saturation 100% 06/13/2019 1:02 PM CALL PERSON Inhaled Oxygen Concentration - - Weight 85.7 kg (189 lb) 06/13/2019 1:02 PM CALL PERSON Height - - Body Mass Index 29.6 04/30/2019 7:03 PM CALL PERSON documented in this encounter Medications at Time [...] MG tablet MOUTH 4 TIMES DAILY NEEDED mesalamine (CANASA) Insert 1 30 Suppository 11 06/17/2018 0 07/01/2019 1000 MG suppository Suppository rectally daily at bedtime. norethindrone-eth Take 1 Tablet by 112 Tablet 3 12/19/2018 0 10/25/2019 estradiol (DASETTA mouth daily. Takes ) 1-35 MG-MCG continuously tabletIndications: Well adult exam Phentermine HCl 30 MG Take 30 mg by mouth 0 03/15/2020 capsule daily. Phentermine HCl 37.5 TAKE 1 CAPSULE BY 90 Capsule 0 06/13/20 19 03/15/2020 MG capsule MOUTH DAILY. predniSONE 4 tabs daily for 2 84 Tablet 0 05/05/20192019 (DELTASONE) 10 MG wk, 3 tabs daily tablet for 1 wk, 2 tabs daily for 1 wk, 1 tab daily for 1 wk, 1/2 tab daily for 1 wk triamterene-hydrochlo TAKE 1 TABLET BY 90 Tablet 3 03/13/20 19 02/27/2020 rothiazide MOUTH DAILY. (MAXZIDE-25) 37.5-25 MG tabletIndications: Essential hypertension (HRC) documented as of this encounter Progress Notes Patricia Turcios RN - 06/13/2019 1:00 PM CST Is this the first dose: No History of previous infusion reactions? No Premedications: No Patient arrived for her Remicade infusion. Vital signs stable. No signs of infection. Pt denies painand feels like infusions are working well for her. Tolerated infusion well. Discharged in stable condition. Will return to clinic for next infusion as scheduled on 08/08. 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 85.7 kg), Intravenous, ONCE, On Sun06/13/19 at 1330, For 1 dose, Week 6 dose sodium chloride 0.9% injection 10-60 mL Given 06/13/2019 3:12 PM CALL PERSON 10 mL 10-60 mL, Intravenous, PRN BEFORE&AFTER MEDICATIONS OR LAB DRAW, Line Patency, Starting on Sun06/13/19 at 1311, Until Sun06/13/19 at 1745, For 1 day documented in this encounter Care Teams Florist Manager Relationship Specialty Start Date End Date Sheeba Castillo APRN, DIAMOND SIZER PCP - General Nurse Practitioner 07/20/16 [address] [place] [id number] documented as of this encounter
--- OUTSIDE RECORDS SUMMARY | 2022-03-20 16:09 | XMS_ITS | Encounter Summary ---
:1975 Author Organization [employer] Address [address], [place] [address] Care Team Providers Name Role Phone Sheeba Castillo APRN, RESTAURANT SHIFT LEADER Primary Care Provider [phone] Reason for Visit Reason Comments Forms Encounter Details Date Type Department Care Team Description 05/21/2019 Telephone [facility] [address] PRN, Forms Gastroenterology RESTAURANT SHIFT LEADER [address] [place] [address] [phone] [place], [place] [phone] (Wo rk) Social History Tobacco Use Types [...] at Date Recorded Female 05/09/2021 7:19 PM GEOTHERMAL POWERPLANT SUPERVISOR documented as of this encounter Nursing Notes Faye Burton RN - 05/21/2019 4:22 PM CST FMLA forms faxed to the [employer]. HERMAL POWERPLANT SUPERVISOR Faye Hinojosa APRN, CNP - 05/21/2019 9:23 AM CST Received FMLA paperwork again to fill out. I filled out to best of my ability. In my [place] outbox, please fax as requested by due date of 05/23/19. HERMAL POWERPLANT SUPERVISOR documented in this encounter Plan of Treatment Upcoming Encounters Date Type Specialty Care Team Description 05/05/2022 Appointment Chemo Therapy/Infusion Services 09/15/2022 Telemedicine Gastroenterology Eusebio Haines MD [address] [place], [place] [address] (Wo rk) documented as of this encounter Visit Diagnoses Not on filedocumented in this encounter Care Teams Summer Internship Relationship Specialty Start Date End Date Sheeba Castillo APRN, RESTAURANT SHIFT LEADER PCP - General Nurse Practitioner 07/20/16 [address] [place] [phone] documented as of this encounter
--- OUTSIDE RECORDS SUMMARY | 2022-03-20 16:09 | XMS_ITS | Encounter Summary ---
:1975 Author Organization [facility] Address [address], [place] [address] Care Team Providers Name Role Phone Sheeba Castillo APRN, SIERRA Primary Care Provider [phone] Encounter Details Date Type Department Care Team Description 07/28/2019 Lab Visit [facility] Left sided ulcerative [address] [facility] (chronic) colitis (HRC) [place] [address] (Primary Dx) [phone] Social History Tobacco Use Types Packs/Day Years [...] at Date Recorded Female 05/09/2021 7:19 PM CHRO documented as of this encounter Plan of Treatment Upcoming Encounters Date Type Specialty Care Team Description 05/05/2022 Appointment Chemo Therapy/Infusion Services 09/15/2022 Telemedicine Gastroenterology Eusebio Haines MD [address] [place], [place] [address] (Wo rk) documented as of this encounter Procedures Procedure Name Priority Date/Time Associated Diagnosis Comme nts CONTAINER TEST Routine 07/28/2019 12:08 PM Left sided ulcerati ve Results for this CHRO (chronic) colitis procedure are in the (HR) results section . documented in this encounter Results CONTAINER TEST (07/28/2019 12:08 PM CHRO) P athologist Signature Container Done 07/28/2019 [facility] Given 2:00 PM [facility] LABORATORY Specimen Anatomical Collection Method Collection Time Receive d Time (Source) Location / / Volume Laterality Other Specimen 07/28/2019 12:08 0 Type PM [facility] 12:08 PM [facility] Faye Fel[place] APRN, CNP LAB_1 Performing Organization Address City/State/ZIP Code Phon e Number [facility] [address] [place] [address] documented in this encounter Visit Diagnoses Diagnosis Left sided ulcerative (chronic) colitis (HRC) - Primary Left sided ulcerative (chronic) colitis documented in this encounter Care Teams Dip Stand Loader Relationship Specialty Start Date End Date Sheeba Castillo APRN, ADMINISTRATIVE TECH PCP - General Nurse Practitioner 07/20/[address] [place] [address] documented as of this encounter
--- OUTSIDE RECORDS SUMMARY | 2022-03-20 16:09 | XMS_ITS | Encounter Summary ---
:1975 Author Organization [employer] Address [address] [address] Care Team Providers Name Role Phone Sheeba Castillo APRN, CNP Primary Care Provider [phone] Reason for Visit Reason Comments APPOINTMENT REQUEST Encounter Details Date Type Department Care Team Description 05/05/2019 Telephone [facility] [place] [facility] AP POINTMENT REQUEST Clinicians RUDY Hill, SIERRA [address] [facility] [phone] [place], [place] [phone] (Wo rk) Social History Tobacco Use Types [...] at Date Recorded Female 05/09/2021 7:19 PM ROENTGENOLOGIST documented as of this encounter Nursing Notes Manfred Azevedo RN - 05/12/2019 11:07 AM CST Per therapy plan, remicade approved. Auth Dates: 05/05/2019-05/05/2020 Auth #: [id number] Patient has next two infusions scheduled 05/16, 06/13. Left message to call back to move up f/u appt with Dionicio Hinojosa. Currently scheduled for 07/02/2019. Addendum: verbally discussed with Dionicio Hinojosa. 07/02/2019 appointment okay. Patient to return call to clinic sooner if not doing well. TGENOLOGIST Manfred Azevedo, RN - 05/05/2019 10:47 AM CST PA submitted 05/05/19 by [facility] PA Team. TGENOLOGIST Suzan Hernandez APRN, UNEMPLOYMENT EXAMINER - 05/05/2019 10:04 AM CST Discharging to home today after UC flare, needs 1) got 1st dose Remicade inpatient 5mg/kg on 05/03. Will need next induction doses arranged. She works at [employer], so schedule them there. Looks like Florecita already put in the Therapy Plan. 2) clinic followup with Micaela 3 weeks. TGENOLOGIST documented in this encounter Plan of Treatment Upcoming Encounters Date Type Specialty Care Team Description 05/05/2022 Appointment Chemo Therapy/Infusion Services 09/15/2022 Telemedicine Gastroenterology Eusebio Haines MD [address] [place], [place] [phone] (Wo rk) documented as of this encounter Visit Diagnoses Not on filedocumented in this encounter Care Teams Human Resources Specialist Relationship Specialty Start Date End Date Sheeba Castillo APRN, UNEMPLOYMENT EXAMINER PCP - General Nurse Practitioner 07/20/16 [address] [place] [id number] documented as of this encounter
--- OUTSIDE RECORDS SUMMARY | 2022-03-20 16:09 | XMS_ITS | Encounter Summary ---
:1975 Author Organization [employer] Address [address] [place] [address] Care Team Providers Name Role Phone Sheeba Castillo APRN, SIERRA Primary Care Provider [phone] Encounter Details Date Type Department Care Team Description 08/29/2019 Lab Visit [facility] examination in Laboratory population survey (Primary [address] Dx) [place], [place] [phone] Social History Tobacco Use Types Packs/Day Years [...] at Date Recorded Female 05/09/2021 7:19 PM [employer] PARALEGAL documented as of this encounter Plan of Treatment Upcoming Encounters Date Type Specialty Care Team Description 05/05/2022 Appointment Chemo Therapy/Infusion Services 09/15/2022 Telemedicine Gastroenterology Eusebio Haines MD [address] [place], [place] [phone] (Wo rk) documented as of this encounter Procedures Procedure Name Priority Date/Time Associated Diagnosis Comme nts CONTAINER TEST Routine 08/29/2019 9:10 AM Health examination i n Results for this [employer] [place] population survey procedure are in the results section. documented in this encounter Results CONTAINER TEST (08/29/2019 9:10 AM [employer] [place]) P athologist Signature Container Done 08/29/2019 [facility] Given 12:00 PM [employer] [place] LABORATORY Specimen Anatomical Collection Method Collection Time Receive d Time (Source) Location / / Volume Laterality Other Specimen 08/29/2019 9:10 AM 020 Type [employer] [place] 10:57 AM [employer] [place] Eusebio Haines MD LAB_1 Performing Organization Address City/State/ZIP Code Phon e Number [facility] [address] [place] [address] documented in this encounter Visit Diagnoses Diagnosis Health examination in population survey - Primary documented in this encounter Care Teams Hogshead Inspector Relationship Specialty Start Date End Date Sheeba Castillo, CORRECTION WARDEN, COPYWRITING INTERN PCP - General Nurse Practitioner 07/20/16 [address] [place] [address] documented as of this encounter
--- OUTSIDE RECORDS SUMMARY | 2022-03-20 16:09 | XMS_ITS | Encounter Summary ---
:1975 Author Organization [employer] Address [address], [place] [address] Care Team Providers Name Role Phone Sheeba Castillo APRN, ASSISTANT WINEMAKER Primary Care Provider [phone] Reason for Visit Reason Comments Infusion Infusion Therapy Plan (Routine) - Closed Specialty Diagnoses / Procedures Referred By Contact Refer red To Contact Diagnoses Ulcerative rectosigmoiditis with rectal bleeding (HRC) Eileen Bernabe, [facility] ENGINE PILOT, ASSISTANT WINEMAKER [address] [address] [place] [address] [place] [address] Referral ID Status Reason Start Date Expiration Date Visits Requ ested Visits Authorized [id number] Closed 08/07/2019 09/23/[phone] Encounter Details Date Type Department Care Team Description 08/08/2019 Hospital Encounter [facility] [place] [address] [employer] rectal bleeding (HRC) [place] [address] (Primary Dx) [phone] Social History Tobacco Use Types Packs/Day Years [...] at Date Recorded Female 05/09/2021 7:19 PM HOGSHEAD FILLER documented as of this encounter Last Filed Vital Signs Vital Sign Reading Time Taken Comments Blood Pressure 130/82 08/08/2019 1:05 PM HOGSHEAD FILLER Pulse 93 08/08/2019 1:05 PM HOGSHEAD FILLER Temperature 36.6 ??C (97.8 ??F) 08/08/2019 1:05 PM HOGSHEAD FILLER Respiratory Rate - - Oxygen Saturation 100% 08/08/2019 1:05 PM HOGSHEAD FILLER Inhaled Oxygen Concentration - - Weight - [...] wk, 1/2 tab daily for 1 wk triamcinolone Apply topically two 80 g 0 07/03/2019 acetonide (KENALOG) times daily as 0.1 % ointment needed. To itchy bumps on trunk and extremities triamterene-hydrochlo TAKE 1 TABLET BY 90 Tablet 3 03/13/20 19 02/27/2020 rothiazide MOUTH DAILY. (MAXZIDE-25) 37.5-25 MG tabletIndications: Essential hypertension (HRC) documented as of this encounter Progress Notes Patricia Turcios RN - 08/08/2019 1:00 PM CST Is this the first dose: No History of previous infusion reactions? No Premedications: No Patient arrived for Remicade infusion. Vital signs stable. No signs of infection. Pt has been havingincreased sx since July 04, is hoping this dose increase going forward will help her sx. Tolerated infusion well. Discharged in stable condition. Will return to clinic for next infusion as scheduled in 8 weeks. HEAD FILLER documented in this encounter Plan of Treatment Upcoming Encounters Date Type Specialty Care Team Description 05/05/2022 Appointment Chemo Therapy/Infusion Services 09/15/2022 Telemedicine Gastroenterology Eusebio Haines MD [address] [place], [place] [id number] (Wo rk) documented as of this encounter Visit Diagnoses Diagnosis 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 documented in this encounter Administered Medications Inactive Administered Medications - up to 3 most recent administrations Medication Order MAR Action Action Date Dose Rate Site inFLIXimab (REMICADE) 900 mg in Started 08/08/2019 1:12 PM HOGSHEAD FILLER 900 mg sodium chloride 0.9 % 250 mL IVPB 900 mg (rounded from 857 mg = 10 mg/kg ? 85.7 kg), Intravenous, ONCE, On Sun08/08/19 at 1315, For 1 dose, Dose beginning at week 14 for maintenance infusions. documented in this encounter Care Teams Aerodynamicist Relationship Specialty Start Date End Date Sheeba Castillo, ENGINE PILOT, ASSISTANT WINEMAKER PCP - General Nurse Practitioner 07/20/16 [address] [place] [address] documented as of this encounter
--- OUTSIDE RECORDS SUMMARY | 2022-03-20 16:09 | XMS_ITS | Encounter Summary ---
:1975 Author Organization [employer] Address [address] [address] Care Team Providers Name Role Phone Sheeba Castillo APRN, SIERRA Primary Care Provider [phone] Encounter Details Date Type Department Care Team Description 07/18/2019 Lab Visit [facility] Left sided ulcerative [address] [facility] (chronic) colitis (HRC) [place] [address] (Primary Dx) [phone] Social History Tobacco Use Types Packs/Day Years [...] at Date Recorded Female 05/09/2021 7:19 PM LEGAL SERVICES MANAGER documented as of this encounter Plan of Treatment Upcoming Encounters Date Type Specialty Care Team Description 05/05/2022 Appointment Chemo Therapy/Infusion Services 09/15/2022 Telemedicine Gastroenterology Eusebio Haines MD [address] [place], [place] [address] (Wo rk) documented as of this encounter Procedures Procedure Name Priority Date/Time Associated Diagnosis Comme nts CONTAINER TEST Routine 07/18/2019 12:32 PM Left sided ulcerati ve Results for this LEGAL SERVICES MANAGER (chronic) colitis procedure are in the (HR) results section . documented in this encounter Results CONTAINER TEST (07/18/2019 12:32 PM LEGAL SERVICES MANAGER) P athologist Signature Container Done 07/18/2019 [facility] Given 2:00 PM LEGAL SERVICES MANAGER LABORATORY Specimen Anatomical Collection Method Collection Time Receive d Time (Source) Location / / Volume Laterality Other Specimen 07/18/2019 12:32 0 Type PM LEGAL SERVICES MANAGER 12:32 PM LEGAL SERVICES MANAGER Faye Felton APRN, CNP LAB_1 Performing Organization Address City/State/ZIP Code Phon e Number [facility] [address] [place] [address] documented in this encounter Visit Diagnoses Diagnosis Left sided ulcerative (chronic) colitis (HRC) - Primary Left sided ulcerative (chronic) colitis documented in this encounter Care Teams Curing Room Worker Relationship Specialty Start Date End Date Sheeba Castillo APRN, RESEARCH LABORATORY TECHNICIAN PCP - General Nurse Practitioner 07/20/[address] [place] [id number] documented as of this encounter
--- OUTSIDE RECORDS SUMMARY | 2022-03-20 16:09 | XMS_ITS | Encounter Summary ---
:1975 Author Organization [employer] Address [address] [place] [address] Care Team Providers Name Role Phone Sheeba Castillo APRN, GENERAL LABORER Primary Care Provider [phone] Reason for Visit Reason Comments Infusion Infusion Therapy Plan (Routine) - Closed Specialty Diagnoses / Procedures Referred By Contact Refer red To Contact Diagnoses Ulcerative rectosigmoiditis with rectal bleeding (HRC) Eileen Bernabe, [facility] DIRECTOR OF ANALYTICAL DEVELOPMENT, GENERAL LABORER [address] [address] [place] [address] [place] [address] Referral ID Status Reason Start Date Expiration Date Visits Requ ested Visits Authorized [id number] Closed 08/07/2019 09/23/[phone] Encounter Details Date Type Department Care Team Description 05/16/2019 Hospital Encounter [facility] [place] [address] [place] rectal bleeding (HRC) [place] [address] (Primary Dx) [phone] Social History Tobacco Use Types Packs/Day Years [...] at Date Recorded Female 05/09/2021 7:19 PM BOILER ASSISTANT OPERATOR documented as of this encounter Last Filed Vital Signs Vital Sign Reading Time Taken Comments Blood Pressure 168/95 05/16/2019 1:45 PM BOILER ASSISTANT OPERATOR Pulse 88 05/16/2019 1:45 PM BOILER ASSISTANT OPERATOR Temperature 36.7 ??C (98 ??F) 05/16/2019 1:45 PM BOILER ASSISTANT OPERATOR Respiratory Rate - - Oxygen Saturation - - Inhaled Oxygen Concentration - - Weight 83.5 kg (184 lb) 05/16/2019 1:45 PM BOILER ASSISTANT OPERATOR Height - - Body Mass Index 28.82 04/30/2019 7:03 PM BOILER ASSISTANT OPERATOR documented in this encounter Medications at [...] mg by mouth 0 03/15/2020 capsule daily. predniSONE 4 tabs daily for 2 84 [...] documented as of this encounter Progress Notes Monique Grimes, RN - 05/16/2019 2:00 PM CST Pt here for her Remicade infusion. VSS. States the Remicade is working well. No pain or bloody stool. Pt tolerated her infusion with no issues. 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 83.5 kg), Intravenous, ONCE, On Sun05/16/19 at 1415, For 1 dose, Week 0 dose given as inpatient at [facility]. sodium chloride 0.9% injection 10-60 mL Given 05/16/2019 4:15 PM BOILER ASSISTANT OPERATOR 10 mL 10-60 mL, Intravenous, PRN BEFORE&AFTER MEDICATIONS OR LAB DRAW, Line Patency, Starting on Sun05/16/19 at 1357, Until Sun05/16/19 at 1819, For 1 day documented in this encounter Care Teams Hot Metal Mixer Operator Helper Relationship Specialty Start Date End Date Sheeba Castillo, DIRECTOR OF ANALYTICAL DEVELOPMENT, GENERAL LABORER PCP - General Nurse Practitioner 07/20/16 [address] [place] [address] documented as of this encounter
--- OUTSIDE RECORDS SUMMARY | 2022-03-20 16:09 | XMS_ITS | Encounter Summary ---
:1975 Author Organization [employer] Address [address], [place] [address] Care Team Providers Name Role Phone Sheeba Castillo APRN, CNP Primary Care Provider [phone] Reason for Visit Reason Comments Dental Hygiene cc none Encounter Details Date Type Department Care Team Description 07/01/2019 Office Visit [facility] Christopher Dental Hygiene (cc Dentistry [address] [facility] none) [address] [place] [phone] Social History Tobacco Use Types Packs/Day Years [...] at Date Recorded Female 05/09/2021 7:19 PM INSTRUMENT MECHANIC documented as of this encounter Last Filed Vital Signs Vital Sign Reading Time Taken Comments Blood Pressure - - Pulse 96 07/01/2019 4:38 PM INSTRUMENT MECHANIC Temperature - - Respiratory Rate - - Oxygen Saturation - - Inhaled Oxygen Concentration - - Weight - - Height - - Body Mass Index - - documented in this encounter Patient Instructions Patient InstructionsKoAdelia velásquez DDS - 07/01/2019 4:20 PM CST Your next hygiene recall is due: 12/28/2019 YOUR PERSONAL DENTAL RISK REPORT Caries (Tooth Decay) Risk Periodontal (Gum) Disease Risk Oral Cancer Risk low MOD high LOW mod high LOW elevated ^ ^ ^ Risk Level: MODERATE Risk Factors: Caries (tooth decay) in the last two years. How to Reduce Your Risk: Hygiene recall at 6 to 12 months. Rinse with fluoride rinse once to twice daily at times other than when brushing. Risk Level: LOW How to Maintain Your Low Risk: Congratulations on your low risk for gum disease. Making healthy life style choices including brushing twice a day; daily flossing; and not using tobacco should help you maintain this low risk. Risk Level: LOW Risk Factors: Incidence of oral cancer increases with age. How to Maintain your Low Risk: Congratulations on your low risk for oral cancer. Making healthy life style choices such as not using tobacco and low to moderate alcohol use should help you maintain this low risk. Idania, we look forward to seeing you at your next visit! Thank you for choosing [facility]. RUMENT MECHANIC documented in this encounter Progress Notes Adelia Montalvo DDS - 07/01/2019 4:20 PM CST RECALL [EXAM] NOTE REASON FOR VISIT/CHIEF COMPLAINT: Idania is a 44 y.o. female who presents for Dental Hygiene (cc none) CHART REVIEW: Reviewed with patient: Medical history, Dental history, Problem list, Periodontal charting and Radiographs SOFT TISSUE, HEAD AND NECK EXAMINATION: Lips: Normal Tongue: Normal Palate: Normal Throat: Normal Floor of the mouth: Normal Mucosa: Normal Head and neck: Normal TMD EVALUATION: Palpation Pain: None Joint Sounds: None Pain with Range of Motion: None OCCLUSAL EXAMINATION: Unchanged COSMETIC CONCERNS: Patient's Perception: Acceptable Dentist's Perception: Acceptable TREATMENT REVIEW AND FOLLOW-UP: Discussed the Dental findings, Prognosis and Treatment options with the patient. All questions answered and informed consent was obtained. Recommended Recall Interval: Examination: 6 months : Recall prophy: 6 months Planned Recall Interval: Examination: 6 months : Recall prophy: 6 months NTI , Pt is practicing good jaw position, discussed recession , no sensitivity adv to monitor Next Planned Visit: 6 month recall Adelia Montalvo DDS 07/01/2019, 5:11 PM --End of Note-- RUMENT MECHANIC Elin Christopher - 07/01/2019 4:20 PM CST HYGIENE PROPHY NOTE COLLABORATIVE AGREEMENT: The patient consents to have charting and prophylaxis by the dental hygienist performed with the understanding that this care is not a substitute for an examination by a dentist. PRESENTATION: Oral Hygiene: Good Plaque: Generalized, moderate interproximal Calculus: Localized, light interproximal and mandibular anterior Stain: None Bleeding: None Gingival tissue: Normal Mucogingival concerns: Absent ACTIVITIES: Hand scale, Essential selective polishing and Flossed all contacts PATIENT EDUCATION: Caries risk, Periodontal risk, Oral cancer risk and OHI NEXT PLANNED HYGIENE VISIT: Hygiene Prophy with exam Elin Christopher 07/01/2019, 5:07 PM --End of Note-- RUMENT MECHANIC documented in this encounter Plan of Treatment Upcoming Encounters Date Type Specialty Care Team Description 05/05/2022 Appointment Chemo Therapy/Infusion Services 09/15/2022 Telemedicine Gastroenterology Eusebio Haines MD [address] [place] [address] (Wo rk) documented as of this encounter Procedures Procedure Name Priority Date/Time Associated Diagnosis Comme nts PERIODIC ORAL Routine 07/01/2019 4:20 PM Routine health EVALUATION INSTRUMENT MECHANIC maintenance PROPHYLAXIS-ADULT Routine 07/01/2019 4:20 PM Routine health RECALL INSTRUMENT MECHANIC maintenance documented in this encounter Visit Diagnoses Diagnosis Routine health maintenance - Primary Routine general medical examination at a health care facility documented in this encounter Care Teams Breeder Hen Service Technician Relationship Specialty Start Date End Date Sheeba Castillo, INTERLINE CLERK, COOLER OPERATOR PCP - General Nurse Practitioner 07/20/16 [address] [place] [address] documented as of this encounter
--- OUTSIDE RECORDS SUMMARY | 2022-03-20 16:09 | XMS_ITS | Encounter Summary ---
:1975 Author Organization [employer] Address [address] [address] Care Team Providers Name Role Phone Sheeba Castillo APRN, SIERRA Primary Care Provider [phone] Encounter Details Date Type Department Care Team Description 06/06/2019 Lab Visit [facility] Left sided ulcerative [address] [facility] (chronic) colitis (HRC) [place] [address] Social History Tobacco Use Types [...] at Date Recorded Female 05/09/2021 7:19 PM TODDLER LEAD TEACHER documented as of this encounter Plan of Treatment Upcoming Encounters Date Type Specialty Care Team Description 05/05/2022 Appointment Chemo Therapy/Infusion Services 09/15/2022 Telemedicine Gastroenterology Eusebio Haines MD [address] [place] [address] (Wo rk) documented as of this encounter Procedures Procedure Name Priority Date/Time Associated Comments Diagnosis CBC AND DIFFERENTIAL Routine 06/06/2019 3:36 PM Left sided R esults for this PANEL TODDLER LEAD TEACHER ulcerative procedure are i n (chronic) colitis the result s (HRC) section. COMPLETE BLOOD Routine 06/06/2019 3:36 PM Left sided Results for this COUNT-W/DIFF TODDLER LEAD TEACHER ulcerative procedure are i n (chronic) colitis the result s (HRC) section. BASIC METABOLIC PANEL Routine 06/06/2019 3:36 PM Left sided Results for this TODDLER LEAD TEACHER ulcerative procedure are i n (chronic) colitis the result s (HRC) section. documented in this encounter Results (ABNORMAL) Complete Blood Count-W/Diff (06/06/2019 3:36 PM TODDLER LEAD TEACHER) [facility] Method Time Signature WBC 11.4 (H) 3.5 - 10.5 06/06/2019 [facility] x10(9)/L 3:40 PM TODDLER LEAD TEACHER LABORATORY RBC 4.57 3.90 - 06/06/2019 [place] 5.03 3:40 PM TODDLER LEAD TEACHER LABORATORY x10(12)/L Hemoglobin 14.0 12.0 - 06/06/2019 [facility] 15.5 g/dL 3:40 PM TODDLER LEAD TEACHER LABORATORY HCT 43.1 34.9 - 06/06/2019 [place] 44.5 % 3:40 PM TODDLER LEAD TEACHER LABORATORY MCV 94.3 80.0 - 06/06/2019 [place] 100.0 fL 3:40 PM TODDLER LEAD TEACHER LABORATORY MCH 30.6 27.6 - 06/06/2019 [place] 33.3 pg 3:40 PM TODDLER LEAD TEACHER LABORATORY MCHC 32.5 31.5 - 06/06/2019 [place] 35.2 g/dL 3:40 PM TODDLER LEAD TEACHER LABORATORY RDW 13.5 11.9 - 06/06/2019 [place] 15.5 % 3:40 PM TODDLER LEAD TEACHER LABORATORY Platelets 343 150 - 450 06/06/2019 [place] x10(9)/L 3:40 PM TODDLER LEAD TEACHER LABORATORY Automated NRBC 0 <=0 /100 06/06/2019 [place] WBC 3:40 PM TODDLER LEAD TEACHER LABORATORY Neutrophil 8.3 (H) 1.7 - 7.0 06/06/2019 [place] Absolute 10(9)/L 3:40 PM TODDLER LEAD TEACHER LABORATORY Lymphocyte 2.3 1.0 - 4.8 06/06/2019 [place] Absolute 10(9)/L 3:40 PM TODDLER LEAD TEACHER LABORATORY Monocytes 0.6 0.2 - 0.9 06/06/2019 [place] Absolute 10(9)/L 3:40 PM TODDLER LEAD TEACHER LABORATORY Eosinophil 0.0 0.0 - 0.5 06/06/2019 [place] Absolute 10(9)/L 3:40 PM TODDLER LEAD TEACHER LABORATORY Basophil 0.0 0.0 - 0.3 06/06/2019 [place] Absolute 10(9)/L 3:40 PM TODDLER LEAD TEACHER LABORATORY Immature Gran % 0.9 (H) 0.0 - 0.5 06/06/2019 [place] % 3:40 PM TODDLER LEAD TEACHER LABORATORY Specimen Anatomical Collection Method / Collection Time Recei peña Time (Source) Location / Volume Laterality Blood Venipuncture / 06/06/2019 3:36 06/06/2019 3:36 Unknown PM TODDLER LEAD TEACHER PM TODDLER LEAD TEACHER Faye Felton APRN, CNP LAB_1 Performing Organization Address City/State/ZIP Code Phon e Number [facility] [address] [place] [address] BMP - Basic Metabolic Panel (06/06/2019 3:36 PM TODDLER LEAD TEACHER) P athologist Signature Sodium 137 136 - 145 06/06/2019 [place] mmol/L 4:38 PM TODDLER LEAD TEACHER LABORATORY Potassium 3.6 3.5 - 5.1 06/06/2019 [place] mmol/L 4:38 PM TODDLER LEAD TEACHER LABORATORY Chloride 102 98 - 109 06/06/2019 [place] mmol/L 4:38 PM TODDLER LEAD TEACHER LABORATORY CO2 26 20 - 29 06/06/2019 [place] mmol/L 4:38 PM TODDLER LEAD TEACHER LABORATORY Anion Gap 9 7 - 16 06/06/2019 [place] mmol/L 4:38 PM TODDLER LEAD TEACHER LABORATORY Calcium 9.3 8.4 - 10.4 06/06/2019 [place] mg/dL 4:38 PM TODDLER LEAD TEACHER LABORATORY BUN <10 7 - 26 06/06/2019 [place] mg/dL 4:38 PM TODDLER LEAD TEACHER LABORATORY Creatinine 0.70 0.55 - 06/06/2019 [place] 1.02 mg/dL 4:38 PM TODDLER LEAD TEACHER LABORATORY GFR, Estimated >60 >60 06/06/2019 [place] mL/min/1.7 4:38 PM TODDLER LEAD TEACHER LABORATORY 3m2 GFR, Est If >60 >60 06/06/2019 [place] mL/min/1.7 4:38 PM TODDLER LEAD TEACHER LABORATORY [place] 3m2 Glucose 96 70 - 100 06/06/2019 [place] mg/dL 4:38 PM TODDLER LEAD TEACHER LABORATORY Comment: The given reference range is fo r the fasting state. Non-fasting reference range for glucose is 70 - 180 mg/dL. Hours Fasting 3 06/06/2019 4:38 PM TODDLER LEAD TEACHER [facility] Specimen Anatomical Collection Method / Collection Time Recei peña Time (Source) Location / Volume Laterality Blood Venipuncture / 06/06/2019 3:36 06/06/2019 3:36 Unknown PM TODDLER LEAD TEACHER PM TODDLER LEAD TEACHER Faye Felton APRN, CNP LAB_1 Performing Organization Address City/State/ZIP Code Phon e Number [facility] [address] [place] [address] documented in this encounter Visit Diagnoses Diagnosis Left sided ulcerative (chronic) colitis (HRC) Left sided ulcerative (chronic) colitis documented in this encounter Care Teams Supervisor Shop Relationship Specialty Start Date End Date Sheeba Castillo APRN, FILTER TENDER PCP - General Nurse Practitioner 07/20/16 [address] [place] [address] documented as of this encounter
--- OUTSIDE RECORDS SUMMARY | 2022-03-20 16:09 | XMS_ITS | Encounter Summary ---
:1975 Author Organization [employer] Address [address] [address] Care Team Providers Name Role Phone Sheeba Castillo APRN, SIER[facility] Primary Care Provider [phone] Encounter Details Date Type Department Care Team Description 08/04/2019 Lab Visit [facility] Left sided ulcerative [address] [facility] (chronic) colitis (HRC) [place] [address] Social History Tobacco Use Types [...] at Date Recorded Female 05/09/2021 7:19 PM OYSTER GRADER documented as of this encounter Plan of Treatment Upcoming Encounters Date Type Specialty Care Team Description 05/05/2022 Appointment Chemo Therapy/Infusion Services 09/15/2022 Telemedicine Gastroenterology Eusebio Haines MD [address] [place] [address] (Wo rk) documented as of this encounter Procedures Procedure Name Priority Date/Time Associated Comments Diagnosis CBC AND DIFFERENTIAL Routine 08/04/2019 11:59 Left sided Res ults for this PANEL AM OYSTER GRADER ulcerative procedure are i n (chronic) colitis the result s (HRC) section. INFLIXIMAB ACTIVITY Routine 08/04/2019 11:59 Left sided Resu lts for this WITH REFLEX TO AM OYSTER GRADER ulcerative procedure are in ANTIBODY (chronic) colitis the result s (HRC) section. COMPLETE BLOOD Routine 08/04/2019 11:59 Left sided Results f or this COUNT-W/DIFF AM OYSTER GRADER ulcerative procedure are i n (chronic) colitis the result s (HRC) section. C-REACTIVE PROTEIN Routine 08/04/2019 11:59 Left sided Resul ts for this AM OYSTER GRADER ulcerative procedure are i n (chronic) colitis the result s (HRC) section. documented in this encounter Results Complete Blood Count-W/Diff (08/04/2019 11:59 AM OYSTER GRADER) P athologist Signature WBC 8.3 3.5 - 10.5 08/04/2019 [facility] x10(9)/L 12:04 PM [facility] RBC 4.55 3.90 - 08/04/2019 [place] 5.03 12:04 PM [facility] x10(12)/L Hemoglobin 14.0 12.0 - 08/04/2019 [facility] 15.5 g/dL 12:04 PM [facility] HCT 41.7 34.9 - 08/04/2019 [place] 44.5 % 12:04 PM [facility] MCV 91.6 80.0 - 08/04/2019 [place] 100.0 fL 12:04 PM [facility] MCH 30.8 27.6 - 08/04/2019 [place] 33.3 pg 12:04 PM [facility] MCHC 33.6 31.5 - 08/04/2019 [place] 35.2 g/dL 12:04 PM [facility] RDW 12.2 11.9 - 08/04/2019 [place] 15.5 % 12:04 PM [facility] Platelets 341 150 - 450 08/04/2019 [place] x10(9)/L 12:04 PM [facility] Automated NRBC 0 <=0 /100 08/04/2019 [place] WBC 12:04 PM [facility] Neutrophil 5.0 1.7 - 7.0 08/04/2019 [place] Absolute 10(9)/L 12:04 PM [facility] Lymphocyte 2.5 1.0 - 4.8 08/04/2019 [place] Absolute 10(9)/L 12:04 PM [facility] Monocytes 0.4 0.2 - 0.9 08/04/2019 [place] Absolute 10(9)/L 12:04 PM [facility] Eosinophil 0.2 0.0 - 0.5 08/04/2019 [place] Absolute 10(9)/L 12:04 PM [facility] Basophil 0.1 0.0 - 0.3 08/04/2019 [place] Absolute 10(9)/L 12:04 PM [facility] Immature Gran % 0.2 0.0 - 0.5 08/04/2019 [place] % 12:04 PM [facility] Specimen Anatomical Collection Method / Collection Time Recei peña Time (Source) Location / Volume Laterality Blood Venipuncture / 08/04/2019 11:59 0 Unknown AM OYSTER GRADER 11:59 AM OYSTER GRADER Faye Felton APRN, TOOL PROGRAMMER LAB_1 Performing Organization Address City/State/ZIP Code Phon e Number [facility] [address] [place] [address] Infliximab Activity with Reflex to Antibody (08/04/2019 11:59 AM OYSTER GRADER) Analysis Performed At Patho logist Time Signature Infliximab 1.74 ug/mL 08/05/2019 [facility] Activity 3:43 PM OYSTER GRADER [facility] Comment: INTERPRETIVE INFORMATION: Infliximab or biosimilar [...] Test developed and characteristics deter mined by [facility]. See Compliance Statement B : [facility]/CS Performed by [facility], [address] [place] [address] [email or web address], Romulo Pritchett MD, Lab. Director EER Infliximab Activity See Note 08/05/2019 3:43 PM OYSTER GRADER [facility] Comment: Access [employer] Report using either link below: -Direct access: [email or web address] -Enter Username, Password: [email or web address] Username: [email or web address] Password: [email or web address] Specimen Anatomical Collection Method / Collection Time Recei peña Time (Source) Location / Volume Laterality Blood Venipuncture / 08/04/2019 11:59 0 Unknown AM OYSTER GRADER 11:59 AM OYSTER GRADER Faye Felton APRN, SIERRA LAB_1 Performing Organization Address City/[facility]/ZIP [facility] Phon e Number [facility] [address] [phone] (ABNORMAL) C Reactive Protein (08/04/2019 11:59 AM OYSTER GRADER) P athologist Signature C-Reactive 1.0 (H) 0.0 - 0.7 08/04/2019 [facility] Protein mg/dL 2:18 PM [facility]STER GR[facility]ER [facility] Specimen Anatomical Collection Method / Collection Time Recei peña Time (Source) Location / Volume Laterality Blood Venipuncture / 08/04/2019 11:59 0 Unknown AM OYSTER GRADER 11:59 AM OYSTER GRADER Faye Felton APRN, SIERRA LAB_1 Performing Organization Address City/[facility] Phon e Number [facility] [address] [place] [address] documented in this encounter Visit Diagnoses Diagnosis Left sided ulcerative (chronic) colitis (HRC) Left sided ulcerative (chronic) colitis documented in this encounter Care Teams Fruit Farmer Relationship Specialty Start Date End Date Sheeba Castillo APRN, TOOL PROGRAMMER PCP - General Nurse Practitioner 07/20/16 [address] MAGDALENA Dinh [phone] documented as of this encounter
--- OUTSIDE RECORDS SUMMARY | 2022-03-20 16:09 | XMS_ITS | Encounter Summary ---
:1975 Author Organization [employer] Address [address] [place] [address] Care Team Providers Name Role Phone Sheeba Castillo APRN, MANAGEMENT ARCHITECT Primary Care Provider [phone] Encounter Details Date Type Department Care Team Description 08/29/2019 Lab Visit [facility] Left sided ulcerative (chron ic) colitis (HRC); [address] [facility] Other ulcerative colitis wit h rectal bleeding (HRC); [place] [address] History of Clostridioides di fficile colitis [phone] Social History Tobacco Use Types Packs/Day Years [...] at Date Recorded Female 05/09/2021 7:19 PM CONVEX GRINDER OPERATOR documented as of this encounter Plan of Treatment Upcoming Encounters Date Type Specialty Care Team Description 05/05/2022 Appointment Chemo Therapy/Infusion Services 09/15/2022 Telemedicine Gastroenterology Eusebio Haines MD [address] [place] [address] (Wo rk) documented as of this encounter Visit Diagnoses Diagnosis Left sided ulcerative (chronic) colitis (HRC) Left sided ulcerative (chronic) colitis Other ulcerative colitis with rectal ble eding (HRC) History of Clostridioides difficile coli tis documented in this encounter Care Teams Drug And Alcohol Treatment Specialist Relationship Specialty Start Date End Date Sheeba Castillo, HANDBAG DESIGNER, MANAGEMENT ARCHITECT PCP - General Nurse Practitioner 07/20/[address] [place] [address] documented as of this encounter
--- OUTSIDE RECORDS SUMMARY | 2022-03-20 16:09 | XMS_ITS | Encounter Summary ---
:1975 Author Organization [facility] Address [address], [place] [address] Care Team Providers Name Role Phone Sheeba Castillo APRN, PER DIEM Primary Care Provider [phone] Encounter Details Date Type Department Care Team Description 05/13/2019 Notes[facility] [address] Faye Felton A PRN, Gastroenterology PER DIEM [address] [place], [place] [phone] [place], [place] [phone] (Wo rk) Social History Tobacco Use Types [...] at Date Recorded Female 05/09/2021 7:19 PM CONSUMER EDUCATOR documented as of this encounter Plan of Treatment Upcoming Encounters Date Type Specialty Care Team Description 05/05/2022 Appointment Chemo Therapy/Infusion Services 09/15/2022 Telemedicine Gastroenterology Eusebio Haines MD [address] [place], [place] [address] (Wo rk) documented as of this encounter Visit Diagnoses Not on filedocumented in this encounter Care Teams Director Of Instrumental Music Relationship Specialty Start Date End Date Sheeab Castillo, SUPERVISOR METAL PLACING, PER DIEM PCP - General Nurse Practitioner 07/20/16 [address] MAGDALENA Dinh [phone] documented as of this encounter
--- OUTSIDE RECORDS SUMMARY | 2022-03-20 16:09 | XMS_ITS | Encounter Summary ---
:1975 Author Organization [employer] Address [address], [place] [address] Care Team Providers Name Role Phone Sheeba Castillo APRN, SIERRA Primary Care Provider Encounter Details Date Type Department Care Team Description 07/31/2019 Lab Visit [facility] Left sided ulcerative [address] [facility] (chronic) colitis (HRC) [place] [address] Social History Tobacco Use Types [...] at Date Recorded Female 05/09/2021 7:19 PM COOLER OPERATOR documented as of this encounter Plan of Treatment Upcoming Encounters Date Type Specialty Care Team Description 05/05/2022 Appointment Chemo Therapy/Infusion Services 09/15/2022 Telemedicine Gastroenterology Eusebio Haines MD [address] [place] [address] (Wo rk) documented as of this encounter Procedures Procedure Name Priority Date/Time Associated Comments Diagnosis ENTERIC STOOL Routine 07/31/2019 8:53 AM Left sided Results for this PATHOGENS PANEL COOLER OPERATOR ulcerative procedure ar e in (chronic) colitis the result s (HRC) section. FECAL CALPROTECTIN Routine 07/31/2019 8:53 AM Left sided Res ults for this COOLER OPERATOR ulcerative procedure are i n (chronic) colitis the result s (HRC) section. ENTERIC STOOL Routine 07/31/2019 8:53 AM Left sided Results for this PATHOGENS, MOLECULAR COOLER OPERATOR ulcerative procedu re are in DETECTION PANEL (chronic) colitis the res ults (HRC) section. documented in this encounter Results Enteric Stool Pathogens, Molecular Detection Panel (07/31/2019 8:53 AM COOLER OPERATOR) Analysis Performed Patholog ist Time At Signature Campylobacter Not Not MOLECULAR BLOOD 08/01/2019 [facility] Detected Detected CULTURE 6:12 AM HOSPITAL IDENTIFICATION COOLER OPERATOR Salmonella Not Not MOLECULAR BLOOD 08/01/2019 [facility] Species Detected Detected CULTURE 6:12 AM HOSPITAL IDENTIFICATION COOLER OPERATOR Shigella Species Not Not MOLECULAR BLOOD 08/01/2019 [facility] Detected Detected CULTURE 6:12 AM HOSPITAL IDENTIFICATION COOLER OPERATOR Vibrio Group Not Not MOLECULAR BLOOD 08/01/2019 [facility] Detected Detected CULTURE 6:12 AM HOSPITAL IDENTIFICATION COOLER OPERATOR Shiga toxin 1 Not Not MOLECULAR BLOOD 08/01/2019 [facility] Detected Detected CULTURE 6:12 AM HOSPITAL IDENTIFICATION COOLER OPERATOR Shiga toxin 2 Not Not MOLECULAR BLOOD 08/01/2019 [facility] Detected Detected CULTURE 6:12 AM HOSPITAL IDENTIFICATION COOLER OPERATOR Norovirus Not Not MOLECULAR BLOOD 08/01/2019 [facility] Detected Detected CULTURE 6:12 AM HOSPITAL IDENTIFICATION COOLER OPERATOR Rotavirus Not Not MOLECULAR BLOOD 08/01/2019 [facility] Detected Detected CULTURE 6:12 AM HOSPITAL IDENTIFICATION COOLER OPERATOR Yersinia Not Not MOLECULAR BLOOD 08/01/2019 [facility] enterocolitica Detected Detected CULTURE 6:12 AM HOSPITAL IDENTIFICATION COOLER OPERATOR Specimen Anatomical Collection Method Collection Time Receive d Time (Source) Location / / Volume Laterality Stool 07/31/2019 8:53 AM 0 8:53 COOLER OPERATOR AM COOLER OPERATOR Narrative [facility] - 08/01/2019 6:12 AM CS T Shiga toxin producing E. coli (STEC) typically harbor one or both genes that encode for Shiga toxins 1 and 2. Testing is performed by an automated sys tem utilizing reverse sheet metal assembler and riveter (RT), polymerase chain reaction (PCR), and array hybridization. Shiga toxin producing E. coli (STEC) typ ically harbor one or both genes that encode for Shiga toxins 1 and 2. Testing is performed by an automated sys tem utilizing reverse sheet metal assembler and riveter (RT), polymerase chain reaction (PCR), and array hybridization. Faye Felton APRN, CNP LAB_1 Performing Organization Address [facility] Phon e Number [address] [address] (ABNORMAL) Calprotectin Fecal (07/31/2019 8:53 AM COOLER OPERATOR) [facility] Method Time Signature Fecal >1250 (H) <=50 ug/g 08/03/2019 [facility] Calprotectin 1:49 AM COOLER OPERATOR LABORATORIES Comment: Fecal Calprotectin is an indicator of th e presence of neutrophils in stool and is not specific for IBD. Ot her intestinal ailments including GI infections and colorectal c ancer can result in elevated concentrations of calprotectin. The diagnosis of IBD cannot be established solely on the basi s of a positive calprotectin result. Patients with IBD f luctuate between active and inactive stages of disease. Calprote ctin results may also fluctuate. GI bleeding of as much as 100 mL per day will increase the fecal calprotectin concentration by only 15 ug/g. INTERPRETIVE INFORMATION: Calprotectin, Fecal ??50 ug/g or less: Normal ??51-120 ug/g: Borderline elevated, carrie t should be ??re-evaluated in 4-6 weeks. ??121 ug/g or greater: Abnormal Performed by [facility], [address] [place] [id number] [email or web address], Romulo Pritchett MD, Lab. Director Specimen Anatomical Collection Method Collection Time Receive d Time (Source) Location / / Volume Laterality Stool 07/31/2019 8:53 AM 0 8:53 COOLER OPERATOR AM COOLER OPERATOR Faye Felton APRN, CNP LAB_1 Performing Organization Address [facility] Phon e Number [facility] [address] [place], [place] [phone] documented in this encounter Visit Diagnoses Diagnosis Left sided ulcerative (chronic) colitis (HRC) Left sided ulcerative (chronic) colitis documented in this encounter Care Teams Drafter Tool Design Relationship Specialty Start Date End Date Sheeba Castillo, RUDY, MOUNTER SOUSAPHONES PCP - General Nurse Practitioner 07/20/16 [address] [place] MAGDALENA Dinh [phone] documented as of this encounter
--- OUTSIDE RECORDS SUMMARY | 2022-03-20 16:09 | XMS_ITS | Encounter Summary ---
:1975 Author Organization [employer] Address [address], [place] [address] Care Team Providers Name Role Phone Sheeba Castillo APRN, SIERRA Primary Care Provider [phone] Reason for Visit Reason Comments Hospital Discharge Follow-up [facility] on 04/30/19 for Ulcerative rectosigmoiditis with rectal bleeding Encounter Details Date Type Department Care Team Description 05/13/2019 Office Visit [facility], Acute ulcerative Medicine colitis without [address] [address] [place] [facility] ([facility]) [place] [address] [place], [place] (Primary Dx) [phone] Social History Tobacco Use Types Packs/Day Years [...] at Date Recorded Female 05/09/2021 7:19 PM YEAST STACKER documented as of this encounter Last Filed Vital Signs Vital Sign Reading Time Taken Comments Blood Pressure 132/83 05/13/2019 4:08 PM YEAST STACKER Pulse 98 05/13/2019 4:08 PM YEAST STACKER Temperature - - Respiratory Rate - - Oxygen Saturation - - Inhaled Oxygen Concentration - - Weight 83.6 kg (184 lb 6.4 oz) 05/13/2019 4:08 PM YEAST STACKER Height - - Body Mass Index 28.88 04/30/2019 7:03 PM YEAST STACKER documented in this encounter Progress Notes Sandro Jenkins MD - 05/13/2019 4:00 PM CST SUBJECTIVE: This 44-year-old female presents for hospital follow-up. Recently admitted to [facility] 04/30-05/[facility]19 due to severe, persistent symptoms associated with her ulcerative colitis. She had presented for her follow-up clinic visit with multiple bloody liquid stools per day and chronic abdominal pain. Her prior medication regimen was no longer effective. She was admitted to the hospital where she received IV steroid burst and was started on Remicade infusion. She is feeling much better today, essentially feeling normal. She reports is the best she has felt in many months. She is very pleased with things and has even return to work as well since discharge. She has had no further abdominal pain or bloody stool. She is having 1 bowel movement per day now. Medications: Current Outpatient Medications Medication Sig Dispense Refill ??? Calcium Carbonate Antacid 1000 MG Take by mouth. Reported on 08/14/2016 ??? cholestyramine (QUESTRAN) 4 GM/DOSE powder Take 4 g by mouth daily. Ok to increase to twice daily if needed. Separate at least 2 hours from other medications. 810 g 3 ??? dicyclomine (BENTYL) 20 MG tablet TAKE 1 TABLET BY MOUTH 4 TIMES DAILY NEEDED 360 Tablet 3 ??? mesalamine (CANASA) 1000 MG suppository Insert 1 Suppository rectally daily at bedtime. 30 Suppository 11 ??? Multiple Vitamin (MULTI-VITAMIN OR) Take 1 tablet by mouth daily (every 24 hours). ??? norethindrone-eth estradiol (DASETTA ) 1-35 MG-MCG tablet Take 1 Tablet by mouth daily. Takes continuously 112 Tablet 3 ??? Phentermine HCl 30 MG capsule Take 30 mg by mouth daily. ??? predniSONE (DELTASONE) 10 MG tablet 4 tabs daily for 2 wk, 3 tabs daily for 1 wk, 2 tabs daily for 1 wk, 1 tab daily for 1 wk, 1/2 tab daily for 1 wk 84 Tablet 0 ??? triamterene-hydrochlorothiazide (MAXZIDE-25) 37.5-25 MG tablet TAKE 1 TABLET BY MOUTH DAILY. 90 Tablet 3 No current facility-administered medications for this visit. Adverse Drug Reactions: Patient has no known allergies. Social History: Social History Socioeconomic History ??? Marital status: Single Spouse name: Not on file ??? Number of children: 0 ??? Years of education: Not on file ??? Highest education level: Not on file Occupational History ??? 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 Financial resource strain: Not on file ??? Food insecurity: Worry: Not on file Inability: Not on file ??? Transportation needs: Medical: Not on file Non-medical: Not on file Tobacco Use ??? Smoking status: Former Smoker Packs/day: 0.25 Years: 15.00 Pack years: 3.75 Types: Cigarettes Last attempt to quit: 04/25/2015 Years since quittin.0 ??? Smokeless tobacco: Never Used Substance and Sexual Activity ??? Alcohol use: Yes Alcohol/week: 3.0 standard drinks Types: 3 Cans of beer per week Comment: 3 drinks a week ??? Drug use: No ??? Sexual activity: Yes Partners: Male control/protection: OCP Lifestyle ??? Physical activity: Days per week: Not on file Minutes per session: Not on file ??? Stress: Not on file Relationships ??? Social connections: Talks on phone: Not on file Gets together: Not on file Attends cheondoism service: Not on file Active member of club or organization: Not on file Attends meetings of clubs or organizations: Not on file Relationship status: Not on file ??? Intimate partner violence: Fear of current or ex partner: Not on file Emotionally abused: Not on file Physically abused: Not on file Forced sexual activity: Not on file Other Topics Concern ??? Bike Helmet Not Asked ??? [place] Yes ??? Exercise Yes ??? Guns in home Yes ??? Seat Belt Yes ??? Special Diet No ??? Weight Concern Yes Social History Narrative . 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 OBJECTIVE: Vital Signs: BP 132/83 (BP Location: Right Arm, BP Cuff Size: Large) Pulse 98 Wt 184 lb 6.4 oz (83.6 kg) BMI 28.88 kg/m?? General: Alert. Appears well. Breathing comfortably. Eyes: Full EOM, PERRLA, without lesions or injection. No icterus. Neck: Supple, without masses, lymphadenopathy, or tenderness. No thyromegaly or nodules. Throat: Moist mucous membranes without lesions, erythema, or exudate. Heart: RR without murmurs, rubs, or gallops. Respiratory: Normal respiratory effort. Lungs clear with good breath sounds. Abdomen: Soft and nontender without guarding rebound or masses. Normal bowel sounds. No hepatosplenomegaly. No bruits. Neuro: Clear speech. Motor function intact. Gait steady. Skin: No jaundice or acute rash. ASSESSMENT: ICD-10-CM 1. Acute ulcerative colitis without complications (HRC) K51.90 PLAN: She will continue her current treatment plan and follow up in GI clinic as scheduled. T STACKER documented in this encounter Plan of Treatment Upcoming Encounters Date Type Specialty Care Team Description 05/05/2022 Appointment Chemo Therapy/Infusion Services 09/15/2022 Telemedicine Gastroenterology Eusebio Haines MD [address] [place] [address] (Wo rk) documented as of this encounter Visit Diagnoses Diagnosis Acute ulcerative colitis without complic ations (HRC) - Primary documented in this encounter Care Teams Leather Crafter Relationship Specialty Start Date End Date Sheeba Castillo, CLOTH SHRINKING MACHINE OPERATOR HELPER, SECONDARY ART TEACHER PCP - General Nurse Practitioner 07/20/16 [address] [address] MAGDALENA Dinh [phone] documented as of this encounter
--- OUTSIDE RECORDS SUMMARY | 2022-03-20 16:09 | XMS_ITS | Encounter Summary ---
:1975 Author Organization [facility] Address [address], [place] [address] Care Team Providers Name Role Phone Sheeba Castillo APRN, CNP Primary Care Provider [phone] Reason for Visit Reason Comments Follow-up Encounter Details Date Type Department Care Team Description 05/28/2019 Office Visit Faye Deleon, Left sided ulcerative (chronic) colitis (HRC) (Primary Dx); [facility] Immunosuppressed status (HRC) [address] [place] [address], [address] [place] [address] [phone] Social History Tobacco Use Types Packs/Day Years [...] at Date Recorded Female 05/09/2021 7:19 PM LINE OUT MAN documented as of this encounter Last Filed Vital Signs Vital Sign Reading Time Taken Comments Blood Pressure 146/86 05/28/2019 9:27 AM LINE OUT MAN Pulse 108 05/28/2019 9:27 AM LINE OUT MAN Temperature - - Respiratory Rate 16 05/28/2019 9:27 AM LINE OUT MAN Oxygen Saturation - - Inhaled Oxygen Concentration - - Weight 85.7 kg (189 lb) 05/28/2019 9:27 AM LINE OUT MAN Height - - Body Mass Index 29.6 04/30/2019 7:03 PM LINE OUT MAN documented in this encounter Patient Instructions Patient InstructionsFaye Hinojosa APRN, CNP - 05/28/2019 9:20 AM CST Continue Remicade If further issues with work, let me know. Need to get HR involved if not being allowed to go to appointments. Labs today Pneumonia vaccine after you finish prednisone Follow up in 3 months Take careIdania! OUT MAN documented in this encounter Progress Notes Faye Hinojosa APRN, CNP - 05/28/2019 9:20 AM CST GI Clinic Follow Up - IBD Patient: Idania Duarte : 1975 MR#: [id number] CSN#: [id number] Date of Visit: 05/28/19 Reason for visit: Ulcerative colitis IBD Data Idania Duarte is a 44-year-old woman who presents for followup of ulcerative colitis. Inflammatory Bowel Disease History 1. Disease: UC 2. Age at diagnosis: 40 3. Extent: left sided with severe proctitis 4. Perianal involvement: no 5. Extraintestinal manifestations: none 6. Prior IBD treatment: ?a.Oral 5 ASA: Lialda 4.8g daily, ineffective ?b. Topical 5 ASA: canasa, using nightly right now ?c. Topical steroids: proctofoam, ineffective in past ?d. Corticosteroids: prednisone multi week course at diagnosis that induced aremission (2015); restarted on taper in January 2019, but unable to taper off and on prolonged 40mg daily for >1 month in March. Hospitalized April 2019 and treated with IV steroids, discharged on prednisone taper. Now on 20mg daily? 7. Current therapy/date: Remicade 5mg/kg s/p 1st two induction doses, cholestyramine 4g daily, prednisone 20mg daily, Canasa suppositories nightly 8. Recent imaging: Flex sig May 01, 2019:Impression: - Severe (Tam Score 3) proctitis ulcerative colitis, unchanged since the last examination. Biopsied. - Normal mucosa in the sigmoid colon. Biopsied. - Preparation of the colon was poor. - Stool in the rectum, in the recto-sigmoid colon and in the sigmoid colon CT enterography 02/06/19 - IMPRESSION: Areas of colonic wall thickening, mucosal and mural enhancement, adjacent lymph nodes and pericolonic fatty edema or inflammation in the descending colon, sigmoidcolon, and rectosigmoid. Flex sig 02/05/19: - Mild (Tam 1) inflammation in the sigmoid colon, severe (tam 3) inflammation from anus to rectosigmoid colon, inflammation in descending and transverse colon - biopsies noted focal minimal colitis in the transverse colon, chronic active colitis in the bolon,and chronic active colitis in the recto sigmoid colon Last colonoscopy: - Date: 09/22/15 - Findings: inflammation from the anus to the rectum secondary to ulcerative proctitis, patchy mildinflammation in cecum and appendiceal orifice, one 3mm polyp in distal sigmoid colon - Histology: mildly active cryptitis in cecum/periappendiceal orifice, mildly active chronic colitis in the rectum, polyp was a tubular adenoma Prior surgery: no surgery? HPI: Idania returns to GI clinic today for follow up regarding a history of ulcerative colitis. Recall shewas diagnosed in August 2015 after colonoscopy showed inflammation from anus to rectum secondary to ulcerative proctitis. Also had mild inflammation in appendiceal orifice consistent with cecal patch. Biopsies noted mild chronic colitis in the rectum, mild active cryptitis in the cecum. She did have a diminutive adenoma in the sigmoid. For most of 2015 she did well on rectal therapy + Lialda. In 2016, struggled with clostridium difficile infection and UC flare. Since 2016, had been treated with Lialda and cholestyramine (for overlapping IBS). Since January 2019 , she has struggled with significant flare. This included frequent BMs, tenesmus, rectal bleeding, cramping. Evaluation included unremarkable CBC, creatinine, lytes. CRP 1.7. Cdiff, enteric stool pathogen panel, enteric parasite PCR, and fecal calprotectin advised but never submitted. She had flex sig as outlined above - severe colitis in rectosigmoid, with more mild disease extending proximally. This was on max Lialda 4.8g daily and intermittent Canasa. She had CT enterography which showed left sided colitis, essentially confirming flex sig findings. I then saw her in clinic on February 12, 2019. We had a long discussion at that visit on where to go with her management. Initially had discussed anti TNF therapy, however Idania reminded me that about 10years ago she had a local atypical melanocytotic lesion on the trunk that was completely removed. Cristal discussed potentially Entyvio, however she preferred to avoid infusions. Subsequently Xeljanz was requested at 10 mg twice daily from her insurer and this was approved. Unfortunately, Idania never had any improvement after starting Xeljanz. She took this for 2 months at10 mg twice daily and her symptoms worsened. When I last saw her on April 30, 2019, she was havingblood per rectum every 10-15 minutes. She would often passed just blood and mucus. Significant tenesmus and nocturnal stools. She was quite miserable. She had restarted prednisone on her own in Marchgiven the severity of her symptoms and had been on 40 mg daily for over 1 month still with severe symptoms when I saw her April 30. Because of this, she was advised to be admitted to the hospital forIV steroids, flexible sigmoidoscopy, and potentially rescue Remicade. She was admitted on April 30 and seen in consultation by GI on May 01. She had a flexible sigmoidoscopy on May 01 which noted a large amount of stool in the rectum, rectosigmoid colon, sigmoid colon. She had severe inflammation, graded Tam score 3, in the rectum. Proximal to this was normal appearing. Sigmoid biopsies were normal. Rectal biopsy showed chronic active colitis with ulceration. No evidence for dysplasia. CMV staining was negative. She did improve with IV steroids, however did receive Remicade 5 milligrams/kilogram on May 03, 2019. She had significant improvement in her symptoms after receiving Remicade and was discharged from the hospital on May 05, 2019. She received her 2nd induction dose of Remicade on May 16, 2019. Idania returns today for follow-up. She is feeling very well. She states she has not felt this good in over 1 year. She denies any abdominal pain, nausea, vomiting. Her bowel movements are formed every other day. No blood. No furthertenesmus. No further nocturnal stools. She is no longer taking Lialda or Bentyl. She is still on prednisone but tapered to 20 mg daily she will do this for 1 week then tapered to 10 mg daily for a week5 mg daily for a week and then stop per hospital instructions. She is taking her Questran and Canasasuppositories nightly. She denies any current extraintestinal manifestations of IBD such as joint pains, oral ulcerations, skin rashes or lesions, or iritis/uveitis. 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 She has gotten HR involved. I have also filled out [facility] paperwork for her. Review importance of not missing Remicade appointments and that timing of the dose is incredibly important for optimal management. Current Medications: Outpatient Medications Prior to Visit Medication Sig Dispense Refill ??? Calcium Carbonate [...] 3 No facility-administered medications prior to visit. Inflammatory Markers: Lab Results Component Value Date C-Reactive Protein 0.2 05/04/2019 C-Reactive Protein 0.3 05/02/2019 C-Reactive Protein 0.4 05/01/2019 C-Reactive Protein 0.4 04/30/2019 C-Reactive Protein <0.5 04/24/2019 C-Reactive Protein <0.5 02/20/2019 Lab Results Component Value Date Calprotectin Fecal <16 01/04/2017 Fecal Calprotectin 691 (H) 05/01/2019 Fecal Calprotectin 181 (H) 04/25/2019 Lab Results Component Value Date Sedimentation Rate 7 04/30/2019 Sedimentation Rate 12 01/03/2017 Sedimentation Rate 18 10/12/2016 Sedimentation Rate 19 04/02/2015 Sedimentation Rate 14 02/28/2008 Sedimentation Rate 3 09/27/2001 IBD Quality Indicators 1. Tobacco Use: No a. Smoking Cessation Discussed? NA 2. Was biologic therapy started within the past 1 year?: No - If Yes, was TB status documented prior to starting biologic Rx? Yes, negative in January 2019 - If Yes, was Hep B status documented prior to starting biologic Rx? Yes, negative in 2016 3. On Prednisone > 10mg / day for 60 days?: No a. If yes, steroid sparing therapy?: Yes b. If yes, bone loss assesment (Dexa Scan / Vit D Level / Vit D-Calcium supplementation) within past 12 months? Yes 4. Colon Cancer screening: (Rec: begin routine surveillance q 2-3 yrs after 8-10 years if colonic involvement.) a. up-to-date? yes Immunization History Administered Date(s) Administered ??? Flu Vac Preserv Free (3+yrs) 04/09/2006, 04/03/2007, 04/08/2008, 04/17/2008, 03/04/2009, 03/10/2010, 03/10/2011, 03/04/2012 ??? H1n1 Laiv Medimmune 2-49 Yr (Intranasal) 04/13/2009 ??? H1n1 Miv Sanofi 3+ Yr (Injected) 06/09/2013 ??? HepB Adult (20+ yrs) 01/02/2002, 02/08/2006 ??? HepB, Unspecified Formulation 08/09/2001 ??? Influenza IIV4 (Quadrivalent) 0.5mL (54598) 03/23/2014, 03/24/2015, 03/23/2016, 03/26/2017, 03/21/2018, 03/22/2018, 03/31/2019 ??? TDAP (ADACEL) 07/04/2010 ??? Td 11/30/2003 ??? Zoster RZV (Shingrix) 03/14/2019 5. Was patient hospitalized for any reason during the past year? Yes - If Yes, did patient receive prophylaxis for DVT? Yes - If Yes, did patient have diarrhea during the hospitalization? Yes - If Yes, was patient tested for C. Difficile? Yes, negative 04/25/19 6. TPMT: Lab Results Component Value Date TPRBR 24.2 07/26/2016 O: BP (!) 146/86 (BP Location: Left Arm, BP Cuff Size: Large) Pulse (!) 108 Resp 16 Wt 189 lb (85.7 kg) BMI 29.60 kg/m?? GEN: Well appearing female, NAD EYES: sclerae are anicteric EXT: No cyanosis, clubbing, or edema PSYCH: A&Ox3, mood and affect are appropriate LABS: Lab Results Component Value Date WBC 14.6 (H) 05/01/2019 RBC 4.14 05/01/2019 Hemoglobin 12.6 05/01/2019 HCT 39.6 05/01/2019 Platelets 348 05/01/2019 Lab Results Component Value Date Alkaline Phosphatase 46 04/30/2019 Bilirubin, Total 0.3 04/30/2019 Bilirubin, Direct 0.1 04/30/2019 Protein, Total 6.9 04/30/2019 Albumin 3.3 (L) 04/30/2019 AST (SGOT) 14 04/30/2019 ALT (SGPT) 23 04/30/2019 Lab Results Component Value Date Creatinine 0.67 05/03/2019 Lab Results Component Value Date Vitamin B12 905 04/02/2015 Lab Results Component Value Date HBSAG Nonreactive 07/26/2016 HBAB Reactive 07/26/2016 HBAB >1,000 07/26/2016 HEPCAB Non-React 03/24/2015 ASSESSMENT: 1. Ulcerative colitis, recto sigmoid involvement with greatest severity in the rectum, s/p recent flare 2. Immunosuppressed status Originally diagnosed with mild IBD and ulcerative proctitis, which was previously management with asneeded Canasa suppositories. However, since January 2019 she has struggled with severe flare symptoms. Flex sig in January 2019 showing active disease to transverse colon, worse distally. CT with evidence of left-sided colitis. Given her desire to avoid IV infusions and anti TNF such, we elected to start Xeljanz in late January. She was treated with 10 mg b.i.d. for at least 2 months and had no symptomatic relief whatsoever. In fact her symptoms progressively worsened. She had been on prednisone at 40 mg daily for >1 monthwithout improvement. Given she was feeling outpatient steroids and the severity of her symptoms, she was hospitalized in early April. She received IV steroids and rescue Remicade 5 milligrams/kilogram May 03. Fortunately, Lorin is doing very well. She has now had 2 induction of Remicade. Her symptoms have all normalized. No further blood in her stool, tenesmus, nocturnal stools. She is feeling the best shehas in over a year. We reviewed the commitment to ongoing infusions she will have her last inductiondose on June 13. She will then receive MR Remicade 5 milligrams/kilogram every 8 weeks ongoing. She will continue her Questran and Canasa for the next month and then we can discuss tapering afterthat. She will continue her prednisone taper as outlined. Agree with stopping Lialda and Bentyl. Would be reasonable to repeat a flex sig in 6-12 months to assess for mucosal healing on Remicade. She will need a Prevnar in Pneumovax in the future given immunosuppression with per Remicade. Would prefer to wait till she is done with prednisone. Labs today will include CBC and BMP. Follow-up in 3 months. I did fill out [place] paperwork for her to allow her to get her infusions an appointment. If she continues to receive backlash from her occupational health nurse supervisor, she was advised to get HR involved. PLAN: 1. Remicade 5 milligrams/kilogram, next dose 06/13 and then every 8 weeks thereafter 2. Prednisone 20 mg daily for 1 week, 10 mg daily for 1 week, 5 mg daily for 1 week, stop 3. Continue Questran 4. Continue Canasa nightly 5. CBC and BMP today 6. Follow-up in 3 months Treatment plan and follow up discussed with the patient and documented in the AVS. Total time spent with patient was 20 minutes, of which 15 minutes were spent consulting patient on condition, treatment, and plan of care. OUT MAN documented in this encounter Plan of Treatment Upcoming Encounters Date Type Specialty Care Team Description 05/05/2022 Appointment Chemo Therapy/Infusion Services 09/15/2022 Telemedicine Gastroenterology Eusebio Haines MD [address] [place] [address] (Wo rk) documented as of this encounter Results BMP - Basic Metabolic Panel (06/06/2019 3:36 PM LINE OUT MAN) P athologist Signature Sodium 137 136 - 145 06/06/2019 [place] mmol/L 4:38 PM [facility] Potassium 3.6 3.5 - 5.1 06/06/2019 [place] mmol/L 4:38 PM [facility] Chloride 102 98 - 109 06/06/2019 [place] mmol/L 4:38 PM [facility] CO2 26 20 - 29 06/06/2019 [place] mmol/L 4:38 PM [facility] Anion Gap 9 7 - 16 06/06/2019 [place] mmol/L 4:38 PM [facility] Calcium 9.3 8.4 - 10.4 06[facility]06/2019 [facility] 4[facility] BUN <10 7 - 26 06/06/2019 [place] mg/dL 4:38 PM [facility] Creatinine 0.70 0.55 - 06/06/2019 [place] 1.02 mg/dL 4:38 PM [facility] GFR, Estimated >60 >60 06/06/2019 [place] mL/min/1.7 4:38 PM [facility] 3m2 GFR, Est If >60 >60 06/06/2019 [place] mL/min/1.7 4:38 PM [facility] [place] 3m2 Glucose 96 70 - 100 06/06/2019 [place] mg/dL 4:38 PM [facility] Comment: The given reference range is fo r the fasting state. Non-fasting reference range for glucose is 70 - 180 mg/dL. Hours Fasting 3 06/06/2019 4:38 PM LINE OUT MAN [facility] Specimen Anatomical Collection Method / Collection Time Recei peña Time (Source) Location / Volume Laterality Blood Venipuncture / 06/06/2019 3:36 06/06/2019 3:36 Unknown PM LINE OUT MAN PM LINE OUT MAN Faye Felton APRN, CNP LAB_1 Performing Organization Address City/State/ZIP Code Phon e Number [facility] [address] [place] [address] documented in this encounter Visit Diagnoses Diagnosis Left sided ulcerative (chronic) colitis (HRC) - Primary Left sided ulcerative (chronic) colitis Immunosuppressed status (HRC) Unspecified disorder of immune mechanism documented in this encounter Care Teams Class C Driver Relationship Specialty Start Date End Date Sheeba Castillo APRN, HOSPITAL LIAISON PCP - General Nurse Practitioner 07/20/16 [id number] [place] [id number] documented as of this encounter
--- OUTSIDE RECORDS SUMMARY | 2022-03-20 16:09 | XMS_ITS | Encounter Summary ---
:1975 Author Organization [employer] Address [address], [place] [address] Care Team Providers Name Role Phone Sheeba Castillo APRN, SIERRA Primary Care Provider [phone] Reason for Referral (Routine) - Closed Specialty Diagnoses / Procedures Referred By Contact Refer red To Contact Diagnoses Left sided ulcerative (chronic) colitis (HRC) Other ulcerative colitis with rectal bleeding (HRC) History of Clostridioides difficile colitis Eusebio Haines MD Procedures Flexible Sigmoidoscopy [address] [place], [place] [address] Referral ID Status Reason Start Date Expiration Date Visits Requ ested Visits Authorized [id number] Closed 08/29/2019 11/27/2020 1 1 INE PIE MAKER Reason for Visit Reason Comments Follow-up Encounter Details Date Type Department Care Team Description 08/29/2019 Office Visit Specialty Center Eusebio Haines, Ashok aiden ed ulcerative (chronic) colitis (HRC) (Primary Dx); [address] Immunosuppression due to drug therapy; Gastroenterology [address] Other ulcerative colitis wit h rectal bleeding (HRC); [address] Hematochezia; Blvd. [place], [place] History of Clostridioides di fficile colitis 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 documented as of this encounter Last Filed Vital Signs Vital Sign Reading Time Taken Comments Blood Pressure 159/96 08/29/2019 7:55 AM MACHINE PIE MAKER Pulse 100 08/29/2019 7:55 AM MACHINE PIE MAKER Temperature - - Respiratory Rate 16 08/29/2019 7:55 AM MACHINE PIE MAKER Oxygen Saturation - - Inhaled Oxygen Concentration - - Weight 85.2 kg (187 lb 12.8 oz) 08/29/2019 7:55 AM MACHINE PIE MAKER Height - - Body Mass Index 29.41 04/30/2019 7:03 PM MACHINE PIE MAKER documented in this encounter Patient Instructions Patient InstructionsEusebio Haines MD - 08/29/2019 7:50 AM CST It was a pleasure to see you in the Gastroenterology Clinic today. We discussed your left-sided ulcerative colitis during your visit today. It appears that when you were started on Remicade late last year you had an excellent response on the tail end of the induction portion of this medication administration. Unfortunately in June of this year, for unclear reasons, you had a decline in your overall health with respect to her ulcerative colitis. In the interim, you have had your Remicade dose increased to 10 milligrams/kilogram with your most recent infusion (your 4th overall infusion) being given at this dose on 's with no improvement in your symptoms thereafter. Additionally have been placed on a prednisone taper, currently still taking 40 mg of prednisone per day. This begs the question as to whether there is something else going on besides a simple ulcerative colitis flare, given that you had what appears to be an excellent initial response during the induction regimen of your Remicade. You have a history of Clostridium difficile colitis andwe are obliged to be checked for this since you have multiple risk factors for this infection. Additionally you are now significantly immunosuppressed and additional infectious agent that can cause ulcerative colitis to be nonresponsive to standard medications is an infection of the colon with the viru s called cytomegalovirus. To check for this we will order a flexible sigmoidoscopy with biopsies to assess your disease activity and to assess for this infection. Finally we will perform blood work andrecheck a Remicade level and check you for . The blood work and your flexible sigmoidoscopy should be done after the stool sample for Clostridium difficile colitis is submitted and finalized. Further recommendations will be made based on the results of all of these tests. In the interim, I will speak with my colleague as to the status of your [facility] paperwork. As always, if he develops severe symptoms such as abdominal pain, abdominal distention, fevers, chills, lightheadedness or other signsof dehydration, you should present to the emergency room immediately for further evaluation and treatment. INE PIE MAKER documented in this encounter Progress Notes Eusebio Haines MD - 08/29/2019 7:50 AM CST GI Clinic Consult Idania Duarte MR# [id number] [facility]# [id number] Date of Visit: 08/29/19 Idania Duarte is a 44 y.o. female presenting for a follow-up on left-sided ulcerative colitis currently on Remicade infusions (10 milligrams/kilogram) last given on August 08 of this year. Patient is also currently on prednisone 40 mg mouth daily with a scheduled taper going forward. Please see my colleagues note from Faye Hinojosa CNP in May of this past year. The patient reports that she was doing extremely well as of May of this past year and then in June things started to ???fall apart.?? She notes that in June she started to have more problems with diarrhea which eventually became bloody and marked by crampy abdominal pain. In the interim, she has been placed on a prednisone taper. She has additionally gotten topical corticosteroid treatments with suppositories as well as enemas and had cholestyramine added to her regimen. 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 Her last endoscopic procedure was a flexible sigmoidoscopy which revealed ongoing active disease mainly in the rectum (Tam score 3). Preceding her Remicade induction regimen, the patient had previously attempted using Xeljanz with poor results. She had been on topical treatments before that with mesalamine basedtherapies. She has a history of Clostridium difficile colitis in 2016 and was checked last in April of this past year. Review of her other biochemical studies show that she remains with a normal redblood cell count as of July of this year. Basic metabolic panel was last done in May of this past year. She has a markedly elevated fecal calprotectin and a stool sample submitted in July consistent with ongoing inflammation of the bowel. The patient endorses minor aches in the joints of her fingers and wrists. She denies any skin rashesor open skin sores. She denies any eye pain or eye redness. She denies any canker sores in her mouth. She denies any leg or calf pain. PMH: Past Medical History: Diagnosis Date ??? [...] Insert 100 mg rectally daily at bedtime. 30 Each 11 ??? hydrocortisone (HYDROCORTISONE 25 MG) 25 MG suppository Insert 1 Suppository rectally daily at bedtime. (Patient not taking: Reported on 08/29/2019) 30 Each 0 ??? mesalamine (CANASA) 1000 MG suppository Insert 1 Suppository rectally daily at bedtime. (Patientnot taking: Reported on 08/29/2019) 30 Suppository 2 ??? Multiple Vitamin (MULTI-VITAMIN OR) Take 1 tablet by mouth daily (every 24 hours). ??? norethindrone-eth estradiol (DASETTA ) 1-35 MG-MCG tablet Take 1 Tablet by mouth daily. Takes continuously 112 Tablet 3 ??? Phentermine HCl 30 MG capsule Take 30 mg by mouth daily. ??? Phentermine HCl 37.5 MG capsule TAKE 1 CAPSULE BY MOUTH DAILY. 90 Capsule 0 ??? predniSONE (DELTASONE) 10 MG tablet 4 tabs daily for 2 wk, 3 tabs daily for 1 wk, 2 tabs daily for 1 wk, then decrease by 1/2 tab weekly until done 112 Tablet 0 ??? triamcinolone acetonide (KENALOG) 0.1 % ointment Apply topically two times daily as needed. To itchy bumps on trunk and extremities 80 g 0 ??? triamterene-hydrochlorothiazide (MAXZIDE-25) 37.5-25 MG tablet TAKE 1 TABLET BY MOUTH DAILY. 90 Tablet 3 No facility-administered medications prior to visit. Allergies: No known drug allergies. PE: There were no vitals filed for this visit. GEN: No acute distress, comfortable Head: normocephalic, atraumatic; sclera anicteric ENT: oropharynx clear, normal hearing CV: regular rate and rhythm ?? Lungs: clear to auscultation bilaterally Abdomen: Obese. Good bowel sounds of normal pitch and frequency. Nondistended. Nontender to light deep palpation during today's examination. There are no peritoneal signs noted. Skin: no obvious rash, no skin breakdown MSK: no joint deformity Neuro: A&Ox3, no focal deficits Psych: appropriate affect and [...] 23 04/30/2019 Lab Results Component Value Date Lipase 129 (H) 07/19/2016 Lipase 354 (H) 07/05/2016 Lab Results Component Value Date Sodium 137 06/06/2019 Potassium 3.6 06/06/2019 Chloride 102 06/06/2019 CO2 26 06/06/2019 Lab Results Component Value Date Creatinine 0.70 06/06/2019 Imaging: (Past 12 months): No results found. Celiac Specific Labs: Lab Results Component Value Date Tissue Transglutaminase Antibody, IgA 4 02/19/2012 Hep A: No results found for: HAVTOTAL [...] Lab Results Component Value Date C-Reactive Protein 1.0 (H) 08/04/2019 C-Reactive Protein 0.2 05/04/2019 C-Reactive Protein 0.3 05/02/2019 C-Reactive Protein 0.4 05/01/2019 C-Reactive Protein 0.4 04/30/2019 C-Reactive Protein <0.5 04/24/2019 Lab Results Component Value Date Calprotectin Fecal <16 01/04/2017 Fecal Calprotectin >1250 (H) 07/31/2019 Fecal Calprotectin 691 (H) 05/01/2019 Fecal Calprotectin 181 (H) 04/25/2019 Lab Results Component Value Date Sedimentation Rate 7 04/30/2019 Sedimentation Rate 12 01/03/2017 Sedimentation Rate 18 10/12/2016 Sedimentation Rate 19 04/02/2015 Sedimentation Rate 14 02/28/2008 Sedimentation Rate 3 09/27/2001 GI Procedures: Procedure Date: 05/01/2019 3:27 PM Date of : 1975 Admit Type: Outpatient Age: 44 Gender: Female Note Status: Finalized Attending MD: Orion Robles , Procedure: Flexible Sigmoidoscopy Indications: High risk colon cancer surveillance: Ulcerative left sided colitis Providers: Monique Parada RN Patient Profile: 44 year old woman with history of left sided ulcerative colitis on tofacitinib until one week prior and currently taking 40 mg oral prednisone, 4.8 g Lialda, and Canasa who presented for refractory ulcerative colitis. Referring MD: Medicines: Midazolam 3 mg IV, Fentanyl 75 micrograms IV Complications: No immediate complications. Procedure: After obtaining informed consent, the scope was passed under direct vision. The [id number] was introduced through the anus and advanced to the sigmoid colon. The flexible sigmoidoscopy was accomplished without difficulty. The patient tolerated the procedure well. The quality of the bowel preparation was poor. Findings: A large amount of stool was found in the rectum, in the recto-sigmoid colon and in the sigmoid colon, interfering with visualization. Normal mucosa was found in the sigmoid colon. Biopsies were taken with a cold forceps for histology. Inflammation was found in a continuous and circumferential pattern from the anus to the rectum. This was graded as Tam Score 3 (severe, with spontaneous bleeding, ulcerations), and when compared to the previous examination, the findings are unchanged. Biopsies were taken with a cold forceps for histology. Verification of patient identification for the specimen was done. Estimated blood loss was minimal. Moderate Sedation: Moderate (conscious) sedation was administered by the endoscopy nurse and supervised by the endoscopist. The following parameters were monitored: oxygen saturation, heart rate, blood pressure, and response to care. Total physician intraservice time was 20 minutes. Impression: - Severe (Tam Score 3) proctitis ulcerative colitis, unchanged since the last examination. Biopsied. - Normal mucosa in the sigmoid colon. Biopsied. - Preparation of the colon was poor. - Stool in the rectum, in the recto-sigmoid colon and in the sigmoid colon. Recommendation: - Return patient to hospital tai for ongoing care. - Low residue diet. - CRP daily - Document stool burden - 20 mg IV methylprednisolone three times daily - Rest of plan per GI FINAL DIAGNOSIS A. Colon, sigmoid, biopsy: ?? No diagnostic abnormality ?? B. Colon, rectum, biopsy: ?? Chronic active colitis with ulceration ?? Negative CMV and HSV immunostains ?? Negative for dysplasia IMPRESSION/ASSESSMENT: Idania Duarte is a 44 y.o. female presenting for a follow-up on active left-sided ulcerative proctitis in the setting of immunosuppression due to drug therapy with biological therapy (Remicade) and prednisone. PLAN: Left-sided ulcerative colitis with hematochezia/immunosuppression due to drug therapy (Remicade/prednisone)/history of cluster difficile colitis: The patient has demonstrated active disease based on her symptoms prep were and objective evidence (elevated fecal calprotectin) over the last couple of months. It is unclear what has occurred at this point. The patient initially seemed to have an excellentsymptomatic response to Remicade during her induction regimen. After completing her 3rd and final infusion as a part of the induction regimen, the patient has taken several steps back with respect her symptoms. She has a history of Clostridium difficile colitis. Although this was checked in April she had an improvement thereafter but now has taken several steps back. We are obliged to check another cluster difficile stool assay given the patient's multiple risk factors for this infection. Additionally she is significantly immunosuppressed with both Remicade and prednisone. We did discuss prophylaxis against Pneumocystis carinii pneumonia (PCP) given her immunosuppression. However we also did discuss the risks of C. difficile with antibiotic therapy. After discussing this through the patient wedecided to forego prophylaxis with Bactrim for now. The patient will be scheduled for a flexible sigmoidoscopy for a repeat disease assessment as well as planned biopsies to assess for CMV. Finally we will also check a mid-cycle Remicade level. If the patient is shown to have no evidence of infection in the setting of active inflammatory bowel disease and adequate Remicade levels mid cycle with respect to her maintenance infusions, we will likely have to deem this a mechanistic failure and transition her to a biologic/treatment which works via an alternative mechanism. All questions were answered to the patient's satisfaction and her satisfaction (will accompanies her today) during today'svisit. I spent 45 minutes with this patient, 40 minutes spent on counseling, education, coordination of care, 5 minutes spent on physical examination. Eusebio Haines MD Gastroenterology and Hepatology documented in this encounter Plan of Treatment Upcoming Encounters Date Type Specialty Care Team Description 05/05/2022 Appointment Chemo Therapy/Infusion Services 09/15/2022 Telemedicine Gastroenterology Eusebio Haines MD [address] [place] [address] (Wo rk) documented as of this encounter Results Flexible Sigmoidoscopy (09/01/2019 11:41 AM CDT) Specimen [...] was passed under direct vision. ? The PCF-H 190DL-06 was introduced ? through t he [...] Code(s): ?? --- Professional - -- ? 20947, Si gmoidoscopy, flexible; with ? biopsy, s [...] time [place] ? [place] [address], as ? appropria te) Diagnosis Code(s): ?? --- Professional - -- ? K51.50, L eft sided colitis without ? complicat ions CPT copyright 2018 [employer]. All rights reserved. The codes documented in this report are preliminary and upon floor hand review may be revised to meet current [...] eillance: Ulcerative left sided colitis Providers: Wes Parada MD, Scotty Schaffer RN Referring MD: Eusebio Haines MD Medicines: Midazolam 2 mg IV, Fentanyl 1 00 micrograms IV Complications: No immediate complication s. Procedure: After obtaining informed cons ent, the scope was passed under direct vision. The [id number] was introduced through the anus and advanced [...] previously scheduled. Procedure Code(s): --- Professional --- 93191, Sigmoidoscopy, flexible; with biopsy, single or multiple G0500, Moderate sedation services provided by the same physician or other qualified health animal care provider performing a gastrointestinal endoscopic service that sedation supports, requiring the presence of an independent trained observer to assist in the monitoring of the patient's level of consciousness and physiological status; initial 15 minutes of intra-service time; patient age 5 years or older (additional time may be reported with 25090, as appropriate) Diagnosis Code(s): --- Professional --- K51.50, Left sided colitis without complications CPT copyright 2018 [employer]. All rights reserved. The codes documented in this report are preliminary and upon floor hand review may be revised to meet current compliance requirements. Wes Parada MD 09/01/2019 12:29:01 PM This document has been electronically si gned. Number of Addenda: 0 Note Initiated On: 09/01/2019 11:41 AM Endoscopy Report Eusebio Haines MD PN GI PROCEDURE ORDERABLES Performing Organization Address City/State/ZIP Code Phon e Number GI (PROVATION) GI ([facility]OVATION) [place], [place] HCG, Quant. - Test Screen Blood (09/01/2019 11:03 AM CDT) Analysis Performed At Patho logist Time Signature HCG, Serum Negative Negative 09/01/2019 [facility] 11:15 AM CDT LABORATORY Specimen Anatomical Collection Method / Collection Time Recei peña Time (Source) Location / Volume Laterality Blood Venipuncture / 09/01/2019 11:03 0 Unknown AM CDT 11:03 AM CDT Eusebio Haines MD LAB_1 Performing Organization Address City/[facility]/ZIP Code Phon e Number [facility] [address] [place] [address] Infliximab Activity with Reflex to Antibody (09/01/2019 11:03 AM CDT) Analysis Performed At Patho logist Time Signature Infliximab 15.74 ug/mL 09/02/2019 [facility] Activity 3:17 PM CDT LABORATORIES Comment: INTERPRETIVE [...] ug/mL or greater for infliximab (Selvin younger ONDINA et al, Gastroenterology 2017; 153:827-834). The AGA makes no recommendation regarding the use of rout ine, proactive therapeutic drug monitoring in adults with quiescent IBD treated with anti-TNF agents. Test developed and characteristics deter mined by [facility]. See Compliance Statement B : [facility]/CS EER Infliximab Activity See Note 09/02/2019 3:17 PM CDT [facility] Comment: Access [facility] Report using either link below: -Direct access: [email or web address] -Enter Username, Password: [email or web address] Username: [email or web address] Password: [email or web address] Performed by [facility], [address] [place] [address] [email or web address], Romulo Pritchett MD, Lab. Director Specimen Anatomical Collection Method / Collection Time Recei peña Time (Source) Location / Volume Laterality Blood Venipuncture / 09/01/2019 11:03 0 Unknown AM CDT 11:03 AM CDT Eusebio Haines MD LAB_1 Performing Organization Address City/State/ZIP Code Phon e Number [facility] [address] [place] [address] [phone] documented in this encounter Visit Diagnoses Diagnosis Left sided ulcerative (chronic) colitis (HRC) - Primary Left sided ulcerative (chronic) colitis Immunosuppression due to drug therapy (H [facility]) Other ulcerative colitis with rectal ble eding (HRC) Hematochezia Blood in stool History of Clostridioides difficile coli tis 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 Left sided ulcerative (chronic) colitis (HRC) Left sided ulcerative (chronic) colitis Other ulcerative colitis with rectal ble eding (HRC) History of Clostridioides difficile coli tis documented in this encounter Care Teams Family Support Worker Relationship Specialty Start Date End Date Sheeba Castillo, HUMAN DEVELOPMENT PROFESSOR, ELECTRICAL DESIGN ENGINEER PCP - General Nurse Practitioner 07/20/16 [address] [place] MAGDALENA Dinh [phone] documented as of this encounter
--- OUTSIDE RECORDS SUMMARY | 2022-03-20 16:09 | XMS_ITS | Encounter Summary ---
:1975 Author Organization [employer] Address [address] [place] [address] Care Team Providers Name Role Phone Sheeba Castillo APRN, SIERRA Primary Care Provider [phone] Reason for Visit Reason Comments Refill Phentermine HCl 37.5 MG caps ule [Pharmacy Med Name: PHENTERMINE HCL 37.5MG CAPS] Encounter Details Date Type Department Care Team Description 06/13/2019 Refill [facility] Iggy Hernandez MD Refill (Phentermine HCl [address] Reyna 37.5 MG capsule [address] [place], [place] [Pharmacy Med Name: [place] [address] PHENTERMINE HCL 37.5MG [phone] (Wo rk) CAPS]) Social History Tobacco Use Types Packs/Day Years [...] at Date Recorded Female 05/09/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 She will pick this up at her earliest convenience. LIFT MULE OPERATOR Iggy Hernandez MD - 06/13/2019 8:17 AM CST Refill completed and no further refills will be given prior to a visit. LIFT MULE OPERATOR Interface, Out [employer] Prov Query - 06/13/2019 5:44 AM CST Phentermine HCl 37.5 MG capsule [Pharmacy Med Name: PHENTERMINE HCL 37.5MG CAPS] Medication started: 10/12/2016 Last ordered by IGGY HERNANDEZ: 12/19/2018 (176 days ago) QTY: 90, Refills: 1, Sig: take 1 capsule by mouth daily. (unchanged) -> The requested strength (37.5 mg oral capsule) was last ordered on 12/19/2018. The patient is taking 30 mg oral capsule as of 05/13/2019. -> This medication was discontinued on 05/05/2019 by VIOLET FINLEY. -> Medication cannot be delegated. Last qualifying visit: 12/19/2018 (with IGGY HERNANDEZ) (A more recent visit (in Family Practice) was found) Next scheduled visit: None Powered by [employer], Reference: [id number], 06/13/2019 5:44:33 AM HIGH LIFT MULE OPERATORAmerico: DEANDRA MAE REFILL ([id number]) LIFT MULE OPERATOR Interface, Out [email or web address] Prov Query - 06/13/2019 5:44 AM CST No Careplan note found by [employer]. LIFT MULE OPERATOR documented in this encounter Plan of Treatment Upcoming Encounters Date Type Specialty Care Team Description 05/05/2022 Appointment Chemo Therapy/Infusion Services 09/15/2022 Telemedicine Gastroenterology Eusebio Haines MD [address] [place], [place] [address] (Wo rk) documented as of this encounter Visit Diagnoses Not on filedocumented in this encounter Care Teams Animal Keeper Head Relationship Specialty Start Date End Date Sheeba Castillo, STATISTICS INTERN, DAYTIME CAREGIVER PCP - General Nurse Practitioner 07/20/16 [address] [place] MAGDALENA Dinh [phone] documented as of this encounter
--- OUTSIDE RECORDS SUMMARY | 2022-03-20 16:09 | XMS_ITS | Encounter Summary ---
:1975 Author Organization [facility] Address [address] [place] [address] Care Team Providers Name Role Phone Sheeba Castillo APRN, SECRETARIAL STENOGRAPHER Primary Care Provider [phone] Reason for Visit Reason Comments UPDATE Encounter Details Date Type Department Care Team Description 08/25/2019 Telephone [facility] [address] A PRN, UPDATE Gastroenterology SECRETARIAL STENOGRAPHER [address] [place] [address] [phone] [place], [place] [id number] (Wo rk) Social History Tobacco Use Types [...] at Date Recorded Female 05/09/2021 7:19 PM SUPPORT TEAM MEMBER documented as of this encounter Nursing Notes Charles Duran RN - 08/25/2019 4:20 PM CST Patient calling back, given messages below. Will continue with current plan of treatment until she sees Dr Haines later this week. ORT TEAM MEMBER Manfred Azevedo RN - 08/25/2019 1:20 PM CST Left message to call back ORT TEAM MEMBER Faye Hinojosa APRN, CNP - 08/25/2019 12:15 PM CST Addendum to below - I see she is scheduled with Dr. Haines on 08/29/2019. That is good, keep appt. ORT TEAM MEMBER Faye Hinojosa APRN, CNP - 08/25/2019 12:13 PM CST I sent through prednisone. She canceled her appt with me this week. I think she needs to establish with GI MD, next available to determine next steps as she may be failing Remicade. ORT TEAM MEMBER Manfred Azevedo RN - 08/25/2019 12:03 PM CST Patient calling with update. Has completed week of enemas HS. Reports no improvement in symptoms. Continues to report 10+ bowel movements daily. Does have nocturnal stools. Experiences extreme urgency after eating anything. Will also have urgency and only expel gas in restroom. Does report bright red rectal bleeding with wiping and a drop in toilet after bowel movements. Currently experiencing LLQ abdominal pain rating 3-4/10. States she does not eat at all while working during day. Only eats a couple crackers for lunch. Denies fever. Reports overall feeling miserable. ORT TEAM MEMBER documented in this encounter Plan of Treatment Upcoming Encounters Date Type Specialty Care Team Description 05/05/2022 Appointment Chemo Therapy/Infusion Services 09/15/2022 Telemedicine Gastroenterology Eusebio Haines MD [address] [place], [place] [phone] (Wo rk) documented as of this encounter Visit Diagnoses Not on filedocumented in this encounter Care Teams Typer Relationship Specialty Start Date End Date Sheeba Castillo, STREET SWEEPER, SECRETARIAL STENOGRAPHER PCP - General Nurse Practitioner 07/20/[address] [place] [address] documented as of this encounter
--- OUTSIDE RECORDS SUMMARY | 2022-03-20 16:10 | XMS_ITS | Encounter Summary ---
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) Faye Felton APRN, Procedures Flexible Sigmoidoscopy HAT BODY INSPECTOR [address] [place] [address] Referral ID Status Reason Start Date Expiration Date Visits Requ ested Visits Authorized [id number] Closed 01/29/2019 04/29/2020 1 1 Reason for Visit (Routine) - Closed Specialty Diagnoses / Procedures Referred By Contact Refer red To Contact Diagnoses Chronic ulcerative proctitis with rectal bleeding (HRC) Faye Felton APRN, Procedures Flexible Sigmoidoscopy HAT BODY INSPECTOR [address] [place] [address] Referral ID Status Reason Start Date Expiration Date Visits Requ ested Visits Authorized [id number] Closed 01/29/2019 04/29/2020 1 1 Encounter Details Date Type Department Care Team Description 02/05/2019 Hospital Encounter [facility] Charles Marinelli C hronic ulcerative [address] proctitis with [address] ([facility]) [facility] [phone] Social History Tobacco Use Types Packs/Day Years Used Date Smoking Tobacco: Former Cigarettes 0.3 15 Quit : 04/25/2015 Smokeless Tobacco: Never Alcohol Use Standard Drinks/Week Comments Yes 3 (1 standard drink = 0.6 oz pure alcoho l) rarely Alcohol Habits Answer Date Recorded How often do you have a drink containing alcohol? Not asked How many drinks containing alcohol do you have on a typical Not asked day when you are drinking? How often do you have six or more drinks on one occasion? 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 mesalamine (LIALDA) Take 4 tablets by 360 Tablet 3 8 02/26/2019 1.2 g enteric coated mouth daily. tablet norethindrone-eth Take 1 Tablet by 112 Tablet 3 12/19/2018 0 10/25/2019 estradiol (DASETTA mouth daily. Takes ) 1-35 MG-MCG continuously tabletIndications: Well adult exam Phentermine HCl 37.5 Take 1 Capsule by 90 Capsule 1 12/20/19 19 05/05/2019 MG capsule mouth daily. topiramate (TOPAMAX) Take 1 Tablet by 90 Tablet 3 9 05/05/2019 25 MG tablet mouth daily at bedtime. triamterene-hydrochlo Take 1 Tab by mouth 90 Tab 3 12/1703/11/2019 rothiazide daily. (MAXZIDE-25) 37.5-25 MG tabletIndications: Essential hypertension (HRC) documented as of this encounter Progress Notes Marce Wright RN - 02/05/2019 1:34 PM CDT Pt. placed on O2 to keep O2 sats. > 90% during procedure.Patient tolerated procedure. documented in this encounter Procedure Notes Charles Marinelli MD - 02/05/2019 12:44 PM CDT Patient Name: Idania Duarte Procedure Date: 02/05/2019 12:44 PM Date of : 1975 Admit Type: Outpatient Age: 43 Gender: Female Note Status: Finalized Attending MD: Charles Marinelli MD Procedure: Flexible Sigmoidoscopy Indications: Hematochezia, Diarrhea (presumed secondary to ulcerative colitis), Disease activity assessment of chronic ulcerative proctosigmoiditis Providers: Charles Marinelli MD, Marce Wright RN Patient Profile: 43 year old female who presented for a flexible sigmoidoscopy given acute on chronic symptoms in the setting of known ulcerative colitis. She has a GI Clinic appointment scheduled for next week. Referring MD: Faye Hinojosa NP Medicines: Midazolam 2 mg IV, Fentanyl 100 micrograms IV Complications: No immediate complications. Procedure: After obtaining informed consent, the scope was passed under direct vision. The [id number] was introduced through the anus and advanced to the left transverse colon. The flexible sigmoidoscopy was accomplished without difficulty. The patient tolerated the procedure well. The quality of the bowel preparation was good. Findings: The perianal and digital rectal examinations were normal. Inflammation characterized by altered vascularity and loss of vascularity was found in a continuous and circumferential pattern in the descending colon and in the transverse colon. Biopsies were taken with a cold forceps for histology. Verification of patient identification for the specimen was done. Estimated blood loss was minimal. Inflammation was found in a continuous and circumferential pattern in the sigmoid colon. This was graded as Tam Score 1 (mild, with erythema, decreased vascular pattern, mild friability). Biopsies were taken with a cold forceps for histology. Verification of patient identification for the specimen was done. Estimated blood loss was minimal. Inflammation was found in a continuous and circumferential pattern from the anus to the rectosigmoid colon (15 cm from the anus). This was graded as Tam Score 3 (severe, with spontaneous bleeding, ulcerations). Biopsies were taken with a cold forceps for histology and also CMV. Verification of patient identification for the specimen was done. Estimated blood loss was minimal. Retroflexion in the rectum was not performed due to inflammation. Moderate Sedation: Moderate (conscious) sedation was administered by the endoscopy nurse and supervised by the endoscopist. The following parameters were monitored: oxygen saturation, heart rate, blood pressure, and response to care. Total physician intraservice time was 24 minutes. Impression: - Inflammation was found in the descending colon and in the transverse colon. Biopsied. - Mild (Tam Score 1) ulcerative colitis in the sigmoid colon. Biopsied. - Severe (Tam Score 3) ulcerative colitis from the anus to the rectosigmoid colon (15 cm from the anus). Biopsied. Recommendation: - Discharge patient to home. - Continue present medications. - Await pathology results. - Return to GI clinic as previously scheduled. - The findings and recommendations were discussed with the patient. Procedure Code(s): --- Professional --- 99723, Sigmoidoscopy, flexible; with biopsy, single or multiple 77162, Moderate sedation; each additional 15 minutes intraservice time G0500, Moderate sedation services provided by the same physician or other qualified health property caretaker performing a gastrointestinal endoscopic service that sedation supports, requiring the presence of an independent trained observer to assist in the monitoring of the patient's level of consciousness and physiological status; initial 15 minutes of intra-service time; patient age 5 years or older (additional time may be reported with 84442, as appropriate) Diagnosis Code(s): --- Professional --- K52.9, Noninfective gastroenteritis and colitis, unspecified K92.1, Melena (includes Hematochezia) R19.7, Diarrhea, unspecified K51.30, Ulcerative (chronic) rectosigmoiditis without complications CPT copyright 2018 [employer]. All rights reserved. The codes documented in this report are preliminary and upon cathode ray tube assembler review may be revised to meet current compliance requirements. Charles Marinelli MD 02/05/2019 1:39:43 PM Number of Addenda: 0 Note Initiated On: 02/05/2019 12:44 PM Endoscopy Report documented in this encounter Plan of Treatment Upcoming Encounters Date Type Specialty Care Team Description 05/05/2022 Appointment Chemo Therapy/Infusion Services 09/15/2022 Telemedicine Gastroenterology Eusebio Haines MD [address] [place], [place] [address] (Wo rk) documented as of this encounter Procedures Procedure Name Priority Date/Time Associated Diagnosis Comme nts SURGICAL PATHOLOGY, Routine 02/05/2019 1:29 PM Re sults for this GI CDT procedure are i n the results section. ENDOSCOPY, SIGMOID Routine 02/05/2019 12:44 PM Chronic ulcerat gregory Results for this CDT proctitis with procedure are in rectal bleeding the results (HRC) section. documented in this encounter Results Surgical Path - GI (02/05/2019 1:29 PM CDT) Component Value Ref Test Analysis Performed At [facility] Method Time Signature Case Report Surgical Pathology ?Case: [id number] ? 02/06/2019 [facility] Authorizing Provider: ??Julien t, Charles J, MD ?Collected: ? 02/05/2019 01:29 PM ? 3:36 PM LABORA TORY Ordering [facility]: [facility] ?Received: ?02/05/2019 02:10 PM ? CDT ? Endoscopy ? Pathologist: ? Ivan Guzman, MD ? Specimens: ?? A) - Colon, ;t ransverse, descending and sigmoid colon ? B) - Choudrant n ? C) - Choudrant n, ;rectal and rectosigmoid ? FINAL A. Colon, ;transverse, descending and sigmoid colon, biops y: 02/06/2019 [facility] Electronically DIAGNOSIS ?? Focal minimal active colitis 3:36 PM LABORATORY signed by CDT Ivan Guzman B. Colon, biopsy: on 02/06/2019 ?? Chronic active colitis with moderate active inflammation at 3:36 PM C. Colon, ;rectal and rectosigmoid , biopsy: ?? Chronic active colitis with moderate to severe active inf lammation Gross A. The specimen is received in formalin and labeled with the patient's name and Colon, ;transverse, descending and sigmoid colon.?? The specimen consists of multiple dawn-white irregular soft tissue fr 02/06/2019 [facility] Description agments, ranging from 0.1 cm up to 0.4 cm. The specimen is filtered and entirely submitted in one cassette. 3:36 PM L ABORATORY CDT B. The specimen is received in formalin and labeled with the patient's name and Colon.?? The specimen consists of multiple dawn-white irregular soft tissue fragments, ranging from 0.2 cm up to 0.3 cm. The specimen is filtered and entirely submitted in one casse tte. C. The specimen is received in saline and labeled with the patient's name and Colon, ;rectal and rectosigmoid, CMV .?? The specimen consists of 3 dawn-white irregular soft tissue fragments, ranging fro m 0.4 cm up to 0.5 cm. The s pecimen is filtered and entirely submitted in one cassette. DJ Clinical Hx Ulcerative Colitis 02/06/[address] Information 3:36 PM LABORATORY CDT Microscopic Microscopic 02/06/2019 [facility] Description examination is 3:36 PM LABORATORY performed. CDT Special Stains Block Stain Result 02/06/[address]1 CMV Negative 3:36 PM LABORATORY CDT The stain controls have been reviewed and stain appropriatel y. ASR Disclaimer One or more of these tests w ere developed and the performance characteristics were determined by [facility]. They have not been cleared or approved by the U.S. Food and Drug Administration. Th 02/06/2019 [facility] [place] FDA has determined that frye ch clearance or approval is not necessary. FDA does not require this test to go through premarket FDA review. This test is used for clinical purposes. It should not be regard 3:36 PM LABORATORY ed as investigational or for research. This laboratory is certified under the Clinical Laboratory Improvement Amendments (CLIA) as qualified to perform high complexity clinical laboratory testing. CDT Embedded 02/06/2019 [facility] Images 3:36 PM LABORATORY CDT Specimen Anatomical Collection Method Collection Time Receive d Time (Source) Location / / Volume Laterality Biopsy COLON STRUCTURE / 02/05/2019 1:29 PM 01/23 2:10 Unknown CDT PM CDT Biopsy COLON STRUCTURE / 02/05/2019 1:29 PM 01/23 2:10 (procedure) Unknown CDT PM CDT Biopsy COLON STRUCTURE / 02/05/2019 1:29 PM 01/23 2:10 (procedure) Unknown CDT PM CDT Charles Marinelli MD LAB PATHOLOGY Performing Organization Address City/State/ZIP Code Phon e Number [facility] [address] [place] [address] Flexible Sigmoidoscopy (02/05/2019 12:44 PM CDT) Specimen (Source) Anatomical Collection Method Collection Time Re ceived Time Location / / Volume Laterality 02/05/2019 12:44 PM CDT Narrative [facility]) - 02/05/2019 12:44 PM CDT Patient Name: Idania Duarte Procedure Date: 02/05/2019 12:44 PM Date of : 1975 Admit Type: Outpatient Age: 43 Gender: Female Note Status: Finalized Attending MD: Charles Marinelli MD Procedure: ? Flexible Sigmo idoscopy Indications: ? Hematochezia, D iarrhea (presumed ? secondary to ulcerative colitis), ? Disease a ctivity assessment of ? chronic u lcerative proctosigmoiditis Providers: ? Charles villafana MD, Marce ? MARIO Wright Patient Profile: ? 43 year old taylor drummond who presented for ? a flexibl e sigmoidoscopy given acute ? on chroni c symptoms in the setting of ? known ulc erative colitis. She has a ? GI Clinic appointment scheduled for ? next week . Referring MD: ?Faye Hinojosa NP Medicines: ? Midazolam 2 mg IV, Fentanyl 100 ? microgram s IV Complications: ? No immediate com plications. Procedure: ? After obtainin g informed consent, the ? scope was passed under direct vision. ? The -HQ 190L-16 was introduced ? through t he miraus and advanced to the ? left jaquez sverse colon. The flexible ? sigmoidos copy was accomplished ? without d ifficulty. The patient ? tolerated the procedure well. The ? quality o f the bowel preparation was ? good. Findings: ? The perianal and digital rectal e xaminations were ? normal. ? Inflammation characterized by alt ered vascularity and ? loss of vascularity was found in a continuous and ? circumferential pattern in the de scending colon and ? in the transverse colon. Biopsies were taken with a ? cold forceps for histology. Verif ication of patient ? identification for the specimen w as done. Estimated ? blood loss was minimal. ? Inflammation was found in a eduardo nuous and ? circumferential pattern in the si gmoid colon. This ? was graded as Tam Score 1 (mild, with erythema, ? decreased vascular pattern, mild friability). ? Biopsies were taken with a cold f orceps for ? histology. Verification of patien t identification for ? the specimen was done. Estimated blood loss was ? minimal. ? Inflammation was found in a eduardo nuous and ? circumferential pattern from the anus to the ? rectosigmoid colon (15 cm from th e anus). This was ? graded as Tam Score 3 (severe, w ith spontaneous ? bleeding, ulcerations). Biopsies were taken with a ? cold forceps for histology and al so CMV. Verification ? of patient identification for the specimen was done. ? Estimated blood loss was minimal. ? Retroflexion in the rectum was no t performed due to ? inflammation. Moderate Sedation: ? Moderate (conscious) sedation was administered by the ? endoscopy nurse and supervised by the endoscopist. ? The following parameters were mon itored: oxygen ? saturation, heart rate, blood pre ssure, and response ? to care. Total physician intraser vice time was 24 ? minutes. Impression: ?- Inflammation was found in the ? descendin g colon and in the ? transvers e colon. Biopsied. ? - Mild (M will Score 1) ulcerative ? colitis i n the sigmoid colon. ? Biopsied. ? - Severe (Tam Score 3) ulcerative ? colitis f rom the anus to the ? rectosigm oid colon (15 cm from the ? anus). Bi opsied. Recommendation: ?- Discharge nick ent to home. ? - Continu e present medications. ? - Await p athology results. ? - Return to GI clinic as previously ? scheduled . ? - The fabiola benedict and recommendations ? were disc ussed with the patient. Procedure Code(s): ?? --- Professional - -- ? 74966, Si gmoidoscopy, flexible; with ? biopsy, s marcos or multiple ? 07635, Mo derate sedation; each ? additiona l 15 minutes intraservice ? time ? G0500, Mo derate sedation services ? provided by the same physician or ? other [facility] ? professio nal performing a [...] time may ? [place] [address], as ? appropria te) Diagnosis Code(s): ?? --- Professional - -- ? K52.9, No ninfective gastroenteritis ? and colit is, unspecified ? K92.1, Me rodney (includes Hematochezia) ? R19.7, Di arrhea, unspecified ? K51.30, U lcerative (chronic) ? rectosigm oiditis without complications CPT copyright 2018 [employer]. All rights reserved. The codes documented in this report are preliminary and upon cathode ray tube assembler review may be revised to meet current compliance requirements. Charles Marinelli MD 02/05/2019 1:39:43 PM Number of Addenda: 0 Note Initiated On: 02/05/2019 12:44 PM ? Endoscopy Report Procedure Note Charles Marinelli MD - 02/05/2019Formatti ng of this note might be different from the original. Patient Name: Idania Duarte Procedure Date: 02/05/2019 12:44 PM Date of : 1975 Admit Type: Outpatient Age: 43 Gender: Female Note Status: Finalized Attending MD: Charles Marinelli MD Procedure: Flexible Sigmoidoscopy Indications: Hematochezia, Diarrhea (pre sumed secondary to ulcerative colitis), Disease activity assessment of chronic ulcerative proctosigmoiditis Providers: Charles Marinelli MD, Marce Wright RN Patient Profile: 43 year old female who presented for a flexible sigmoidoscopy given acute on chronic symptoms in the setting of known ulcerative colitis. She has a GI Clinic appointment scheduled for next week. Referring MD: Faye Hinojosa NP Medicines: Midazolam 2 mg IV, Fentanyl 1 00 micrograms IV Complications: No immediate complication s. Procedure: After obtaining informed cons ent, the scope was passed under direct vision. The [id number] was introduced through the anus and advanced to the left transverse colon. The flexible sigmoidoscopy was accomplished without difficulty. The patient tolerated the procedure well. The quality of the bowel preparation was good. Findings: The perianal and digital rectal examina tions were normal. Inflammation characterized by altered v ascularity and loss of vascularity was found in a cont inuous and circumferential pattern in the descendi ng colon and in the transverse colon. Biopsies were taken with a cold forceps for histology. Verificatio n of patient identification for the specimen was don e. Estimated blood loss was minimal. Inflammation was found in a continuous and circumferential pattern in the sigmoid colon. This was graded as Tam Score 1 (mild, with erythema, decreased vascular pattern, mild friabi lity). Biopsies were taken with a cold forceps for histology. Verification of patient iden tification for the specimen was done. Estimated blood loss was minimal. Inflammation was found in a continuous and circumferential pattern from the anus t o the rectosigmoid colon (15 cm from the anus ). This was graded as Tam Score 3 (severe, with sp ontaneous bleeding, ulcerations). Biopsies were t aken with a cold forceps for histology and also CMV . Verification of patient identification for the speci men was done. Estimated blood loss was minimal. Retroflexion in the rectum was not perf ormed due to inflammation. Moderate Sedation: Moderate (conscious) sedation was admin istered by the endoscopy nurse and supervised by the e ndoscopist. The following parameters were monitored : oxygen saturation, heart rate, blood pressure, and response to care. Total physician intraservice t deandra was 24 minutes. Impression: - Inflammation was found in the descending colon and in the transverse colon. Biopsied. - Mild (Tam Score 1) ulcerative colitis in the sigmoid colon. Biopsied. - Severe (Tam Score 3) ulcerative colitis from the anus to the rectosigmoid colon (15 cm from the anus). Biopsied. Recommendation: - Discharge patient to [facility]. - Continue present medications. - Await pathology results. - Return to GI clinic as previously scheduled. - The findings and recommendations were discussed with the patient. Procedure Code(s): --- Professional --- 23674, Sigmoidoscopy, flexible; with biopsy, single or multiple 62814, Moderate sedation; each additional 15 minutes intraservice time G0500, Moderate sedation services provided by the same physician or other qualified health property caretaker performing a gastrointestinal endoscopic service that sedation supports, requiring the presence of an independent trained observer to assist in the monitoring of the patient's level of consciousness and physiological status; initial 15 minutes of intra-service time; patient age 5 years or older (additional time may be reported with 48716, as appropriate) Diagnosis Code(s): --- Professional --- K52.9, Noninfective gastroenteritis and colitis, unspecified K92.1, Melena (includes Hematochezia) R19.7, Diarrhea, unspecified K51.30, Ulcerative (chronic) rectosigmoiditis without complications CPT copyright 2018 [employer]. All rights reserved. The codes documented in this report are preliminary and upon cathode ray tube assembler review may be revised to meet current compliance requirements. Charles Marinelli MD 02/05/2019 1:39:43 PM Number of Addenda: 0 Note Initiated On: 02/05/2019 12:44 PM Endoscopy Report Faye Felton BUSINESS LAWYER, HAT BODY INSPECTOR PN GI PROCEDURE ORDERABLES Performing Organization Address City/State/ZIP Code Phon e Number [facility] [place], [place] documented in this encounter Visit Diagnoses Diagnosis Chronic ulcerative proctitis with rectal bleeding (HRC) Ulcerative (chronic) proctitis documented in this encounter Administered Medications Inactive Administered Medications - up to 3 most recent administrations Medication Order MAR Action Action Date Dose Rate Site fentaNYL (SUBLIMAZE) injection Given 02/05/2019 1:33 PM CDT 100 mcg 25-100 mcg 25-100 mcg, Intravenous, PRN, Other, Moderate Sedation, Starting on Sun02/05/19 at 1054, Until Tamela 02/06/19 at 0205, Administer in 25-100 mcg increments as directed by endoscopy procedure MD up to a total of 300 mcg. (Give only during endoscopy procedure visit) midazolam (VERSED) injection 0.5-2 mg Given 02/05/2019 1:33 PM CDT 2 mg 0.5-2 mg, Intravenous, PRN, Sedation, Starting on Sun02/05/19 at 1054, Until Tamela 02/06/19 at 0205, Administer in 0.5-2 mg increments as directed by endoscopy procedure MD up to a total of 8 mg. (Give only during endoscopy procedure visit) sodium chloride 0.9% injection 10-60 mL Given 02/05/2019 1:34 PM CDT 10 mL 10-60 mL, Intravenous, PRN, Line Patency, Line Care, Starting on Sun02/05/19 at 1054, Until Tamela 02/06/19 at 0205 documented in this encounter Care Teams Remanufacturing Technician Relationship Specialty Start Date End Date Sheeba Castillo, BUSINESS LAWYER, HAT BODY INSPECTOR PCP - General Nurse Practitioner 07/20/[address] [place] [id number] documented as of this encounter
--- OUTSIDE RECORDS SUMMARY | 2022-03-20 16:10 | XMS_ITS | Encounter Summary ---
:1975 Author Organization [employer] Address [address], [place] [address] Care Team Providers Name Role Phone Sheeba Castillo APRN, CNP Primary Care Provider [phone] Reason for Visit Procedure/Equipment (Routine) - Incomplete Specialty Diagnoses / Procedures Referred By Contact Refer red To Contact Diagnoses Chronic ulcerative proctitis with rectal bleeding (HRC) Faye Felton, PHOTOTYPESETTER OPERATOR, Procedures CT Enterography W IV Cont MEDICAL FEE CLERK [address] [place] [address] Referral ID Status Reason Start Date Expiration Date Visits V isits Requested Authorized [id number] Incomplete 01/29/2019 04/29/2020 1 1 Encounter Details Date Type Department Care Team Description 02/06/[address] Scan Faye Felton, Chronic ulcerative Procedure [id number] PHOTOTYPESETTER OPERATOR, MEDICAL FEE CLERK proctitis with Drive [address] rectal bleeding [place], [place] [address] (HRC) [address] 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 documented in this encounter Results CT Enterography W IV Cont (02/06/2019 5:09 PM CDT) Anatomical Region Laterality Modality Abdomen, Pelvis Computed Tomography Specimen (Source) Anatomical Collection Method Collection Time Re ceived Time Location / / Volume Laterality 02/06/2019 4:50 PM CDT Impressions 02/06/2019 5:31 PM CDT COMPARISON: ??None. TECHNIQUE: ??Images were obtained throug h the abdomen and pelvis following the administration of 100 mL IOPAMIDOL 76 % IV SOLN utilizing CT enterography protocol. Patient orally ingested 1350 mL Volumen contrast medium. FINDINGS: ?? SMALL BOWEL: The small bowel wall thickn ess is normal. No mucosal hyperenhancement. No serosal edema or inflammation. There are small to borderline nodes in the root of the small bowel mesentery.. The terminal ileum appears normal. LARGE BOWEL: Moderate stool throughout t he colon. There is ppqn-jg-ramxljxt wall thickening, and mucosal and mural hyperenhancement of the descending colon. There are adjacent mildly enlarged lymph node s and minimal infiltrative density. The distal sigmoid colon is nondistended but may be mildly thick-walled and demonstrates mucosal hyperenhancement. There is rectal wall thickening, mucosal hyperenhan cement, enlarged perirectal lymph nodes and infiltrative density extending into the perirectal fat. The appendix appears normal. ABDOMEN/PELVIS: Liver, spleen, kidneys, pancreas, and adrenals appear within normal limits. No ascites or other adenopathy. No pelvic mass. IMPRESSION: Areas of colonic wall thicke kenneth, mucosal and mural enhancement, adjacent lymph nodes and pericolonic fatty edema or inflammation in the descending colon, sigmoid colon, and rectosigmoid. Procedure Note Miguelangel Espinoza MD - 02/06/2019Forma tting of this note might be different from the original. IMPRESSION COMPARISON: None. TECHNIQUE: Images were obtained through the abdomen and pelvis following the administration of 100 mL IOPAMIDOL 76 % IV SOLN utilizing CT enterography protocol. Patient orally ingested 1350 mL Volumen contrast medium. FINDINGS: SMALL BOWEL: The small bowel wall thickn ess is normal. No mucosal hyperenhancement. No serosal edema or inflammation. There are small to borderline nodes in the root of the small bowel mesentery.. The terminal ileum appears normal. LARGE BOWEL: Moderate stool throughout t he colon. There is iqsv-qj-vwyvwhxy wall thickening, and mucosal and mural hyperenhancement of the descending colon. There are adjacent mildly enlarged lymph nodes and minimal infiltrative density. The di stal sigmoid colon is nondistended but may be mildly thick-walled and demonstrates mucosal hyperenhancement. There is rectal wall thickening, mucosal hyperenhancement, enlarged perirectal lymph nodes and infiltrative density extending into the perirectal fat. The appendix appears normal. ABDOMEN/PELVIS: Liver, spleen, kidneys, pancreas, and adrenals appear within normal limits. No ascites or other adenopathy. No pelvic mass. IMPRESSION: Areas of colonic wall thicke kenneth, mucosal and mural enhancement, adjacent lymph nodes and pericolonic fatty edema or inflammation in the descending colon, sigmoid colon, and rectosigmoid. Faye Felton PHOTOTYPESETTER OPERATOR, MEDICAL FEE CLERK RAD CT documented in this encounter Visit Diagnoses Diagnosis Chronic ulcerative proctitis with rectal bleeding (HRC) Ulcerative (chronic) proctitis documented in this encounter Administered Medications Inactive Administered Medications - up to 3 most recent administrations Medication Order MAR Action Action Date Dose Rate Site 0.9% sodium chloride bolus 100 mL Started 02/06/2019 5:30 PM CDT 80 mL 100 mL, Intravenous, Administer over 1 Hours, ONCE, On Tamela 02/06/19 at 1730, For 1 dose barium sulfate (VOLUMEN) suspension 1,350 Given 02/06/2019 5 :30 PM CDT 1,350 mL mL 1,350 mL, Oral, ONCE, On Tamela 02/06/19 at 1730, For 1 dose iopamidol (ISOVUE-370) 76 % injection 10 0 mL Given 02/06/2019 5:30 PM CDT 100 mL 100 mL, Intravenous, ONCE, On Tamela 02/06/19 at 1730, For 1 dose sodium chloride 0.9% injection 10 mL Given 02/06/2019 5:30 PM CDT 10 mL 10 mL, Intravenous, ONCE, On Tamela 02/06/19 at 1730, For 1 dose documented in this encounter Care Teams Button Sewer Hand Relationship Specialty Start Date End Date Sheeba Castillo, PHOTOTYPESETTER OPERATOR, MEDICAL FEE CLERK PCP - General Nurse Practitioner 07/20/16 [address] [place] [id number] documented as of this encounter
--- OUTSIDE RECORDS SUMMARY | 2022-03-20 16:10 | XMS_ITS | Encounter Summary ---
:1975 Author Organization [employer] Address [address] [address] Care Team Providers Name Role Phone Sheeba Castillo APRN, CNP Primary Care Provider [phone] Reason for Visit Reason Comments IMMUNIZATION QUESTIONS My Chart Message Encounter Details Date Type Department Care Team Description 02/16/2019 Telephone [facility] Sheeba Castillo, [facility] UNIZATION QUESTIONS; Medicine [facility] My Chart Message [address] [place] [address] [place], [place] [phone] (Wo rk) Social History Tobacco Use Types [...] at Date Recorded 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 I called around and was told that since I am under 50, other outside pharmacies can not give me the vaccine. I contacted the [facility] and was told due to my age, that I had to get the vaccine from [facility] or [facility]. I am aware that it is hard to find this vaccine in theclinic setting. My GI provider would like me to get this vaccine before starting a new medication. How do I go about finding out who has the med and then scheduling an apt? Is it okay to leave a detailed message on your voicemail? No (Advise caller that the PN call back number will end with [phone] or unknown) Please route to: Mendez Driscoll documented in this encounter Plan of Treatment Upcoming Encounters Date Type Specialty Care Team Description 05/05/2022 Appointment Chemo Therapy/Infusion Services 09/15/2022 Telemedicine Gastroenterology Eusebio Haines MD [address] [place], [place] [address] (Wo rk) documented as of this encounter Visit Diagnoses Not on filedocumented in this encounter Care Teams Yard Laborer Relationship Specialty Start Date End Date Sheeba Castillo, PROCUREMENT COORDINATOR, MONORAIL CAR OPERATOR PCP - General Nurse Practitioner 07/20/16 [address] [place] [id number] documented as of this encounter
--- OUTSIDE RECORDS SUMMARY | 2022-03-20 16:10 | XMS_ITS | Encounter Summary ---
:1975 Author Organization [employer] Address [address] [place] [address] Care Team Providers Name Role Phone Sheeba Castillo APRN, OVEN UNLOADER Primary Care Provider [phone] Encounter Details Date Type Department Care Team Description 04/25/2019 Lab Visit [facility] Ulcerative pancolitis with [address] 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 FECAL CALPROTECTIN Routine 04/25/2019 4:00 AM Ulcerative Res ults for this CDT pancolitis with procedure ar e in rectal bleeding the results (HRC) section. ENTERIC STOOL Routine 04/25/2019 4:00 AM Ulcerative Results for this PATHOGENS, MOLECULAR CDT pancolitis with proc edure are in DETECTION PANEL rectal bleeding the resul ts (HRC) section. C.DIFFICILE Routine 04/25/2019 4:00 AM Ulcerative Results f or this TOXIN,MOLECULAR CDT pancolitis with procedure are in DETECTION rectal bleeding the results (HRC) section. documented in this encounter Results Enteric Stool Pathogens, Molecular Detection Panel (04/25/2019 4:00 AM CDT) Analysis Performed Patholog ist Time At Signature Campylobacter Not Not MOLECULAR BLOOD 04/26/2019 [facility] Detected Detected CULTURE 2:53 PM HOSPITAL IDENTIFICATION CDT Salmonella Not Not MOLECULAR BLOOD 04/26/2019 [facility] Species Detected Detected CULTURE 2:53 PM HOSPITAL IDENTIFICATION CDT Shigella Species Not Not MOLECULAR BLOOD 04/26/2019 [facility] Detected Detected CULTURE 2:53 PM HOSPITAL IDENTIFICATION CDT Vibrio Group Not Not MOLECULAR BLOOD 04/26/2019 [facility] Detected Detected CULTURE 2:53 PM HOSPITAL IDENTIFICATION CDT Shiga toxin 1 Not Not MOLECULAR BLOOD 04/26/2019 [facility] Detected Detected CULTURE 2:53 PM HOSPITAL IDENTIFICATION CDT Shiga toxin 2 Not Not MOLECULAR BLOOD 04/26/2019 [facility] Detected Detected CULTURE 2:53 PM HOSPITAL IDENTIFICATION CDT Norovirus Not Not MOLECULAR BLOOD 04/26/2019 [facility] Detected Detected CULTURE 2:53 PM HOSPITAL IDENTIFICATION CDT Rotavirus Not Not MOLECULAR BLOOD 04/26/2019 [facility] Detected Detected CULTURE 2:53 PM HOSPITAL IDENTIFICATION CDT Yersinia Not Not MOLECULAR BLOOD 04/26/2019 [facility] enterocolitica Detected Detected CULTURE 2:53 PM HOSPITAL IDENTIFICATION CDT Specimen Anatomical Collection Method Collection Time Receive d Time (Source) Location / / Volume Laterality Stool Non-blood 04/25/2019 4:00 AM 9 3:09 Collection / CDT PM CDT Unknown Narrative [facility] - 04/26/2019 2:53 PM CD T Shiga toxin producing E. coli (STEC) typically harbor one or both genes that encode for Shiga toxins 1 and 2. Testing is performed by an automated sys tem utilizing reverse solar energy engineer (RT), polymerase chain reaction (PCR), and array hybridization. Faye Felton APRN, CNP LAB_1 Performing Organization Address City/[facility]/ZIP [facility] Phon e Number [address] [address] (ABNORMAL) Calprotectin Fecal (04/25/2019 4:00 AM CDT) DEXMA Method Time Signature Fecal 181 (H) <=50 ug/g 04/27/2019 [facility] Calprotectin 8:00 PM [facility] Comment: Fecal Calprotectin is an indicator [...] ??121 ug/g or greater: Abnormal Performed by [employer], [address] [place] [address] [email or web address], Romulo Pritchett MD, Lab. Director Specimen Anatomical Collection Method Collection Time Receive d Time (Source) Location / / Volume Laterality Stool Non-blood 04/25/2019 4:00 AM 9 3:09 Collection / CDT PM CDT Unknown Faye Felton APRN, CNP LAB_1 Performing Organization Address [facility] Phon e Number [employer] [address] [phone] C.Difficile Toxin,Molecular Detection, (04/25/2019 4:00 AM CDT) Patholo gist Method Time Signature C.difficile Not Detected Not Detected 04/28/2019 [facility] by PCR 9:26 AM [facility] Specimen Anatomical Collection Method Collection Time Receive d Time (Source) Location / / Volume Laterality Stool Non-blood 04/25/2019 4:00 AM 9 3:09 Collection / CDT PM CDT Unknown Narrative [facility] - 04/28/2019 9:26 AM CS T Comment: A single negative test for C. d ifficile means the likelihood this organism is causing the diarrheal illness is extr chauncey low. ??Therefore repeat testing within 7 days of the same diarrheal episode is strongly discouraged. aFye Felton APRN, CNP LAB_1 Performing Organization Address City/State/ZIP Code Phon e Number [address] [address] documented in this encounter Visit Diagnoses Diagnosis Ulcerative pancolitis with rectal bleedi ng (HRC) documented in this encounter Care Teams Information Systems Administrator Relationship Specialty Start Date End Date Sheeba Castillo APRN, OVEN UNLOADER PCP - General Nurse Practitioner 07/20/16 [address] [place] Dinh [id number] documented as of this encounter
--- OUTSIDE RECORDS SUMMARY | 2022-03-20 16:10 | XMS_ITS | Encounter Summary ---
:1975 Author Organization [employer] Address [address], [place] [address] Care Team Providers Name Role Phone Sheeba Castillo APRN, CNP Primary Care Provider [phone] Reason for Visit Reason Comments Prior Authorization For Medication Encounter Details Date Type Department Care Team Description 02/18/2019 Telephone [facility] [address] Faye Felton P rior Authorization For Gastroenterology [facility] Medication 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 confirmation that instructions for xeljanz sent previously has been read by patient. Manfred Azevedo RN - 03/11/2019 1:30 PM CDT Left message to call back. Advised instructions also sent to [employer]. Faye Hinojosa APRN, SIERRA - 03/10/2019 5:08 PM CDT Ok, thanks. Plan will be to continue 10mg BID for 8 weeks and assess response at that time. If no response, continue 10mg BID for another 8 weeks. If response by week 16, continue 10mg BID maintenance. If she responds by week 8, decrease to 5mg BID maintenance. In 4 weeks, needs repeat labs (ordered). Then every 3 month CBC, LFTs. Needs at least annual follow up with Derm to assess for skin cancer. Finally, needs Shingrix via PCP office. Manfred Azevedo RN - 03/10/2019 4:55 PM CDT Patient left voicemail on IBD line. Aware medication is approved, did have a $150 co-pay. Patient found co-pay card online and arranged assistance. Left message for patient that RN received her message. Patient to call back with questions/concerns. Manfred Azevedo RN - 03/10/2019 11:27 AM CDT Left message to call back. Vickie Garcia LPN - 03/10/2019 10:09 AM CDT Received approval for Xeljanz for date range 02/02/2019 to 03/05/2020. Case # [id number] Faxed approval paperwork to [facility] Care [facility]. Manfred Azevedo RN - 03/04/2019 2:16 PM CDT Called [facility] Specialty to see if PA received 02/28/19. Spoke to boni Conley to locate PA. Re-faxed, confirmation received. Faye Hinojosa APRN, SIERRA - 02/28/2019 4:53 PM CDT [facility], strong lorie Shearer. Manfred Azevedo RN - 02/28/2019 4:43 PM CDT Negative TSPOT result received from [facility]. Copy placed in Dionicio Hinojosa's mailbox and to HIM. PA, supporting documents, and insurance information faxed to [facility] Specialty ([phone]), confirmation received. Manfred Azevedo RN - 02/28/2019 11:14 AM CDT Pa returned call. TSPOT is resulted, but not crossing over to Epic. Will attempt to re-enter and will have result also faxed. Expect by end of day. Manfred Azevedo RN - 02/28/2019 10:03 AM CDT TSPOT still in process. Called and spoke to Pa in lab. Pa checking with processing to see when test should result. Will return call to Gi clinic. Manfred Azevedo RN - 02/19/2019 8:29 AM CDT Left detailed message to have blood work completed. Will need results prior to submitting PA. Paperwork started at [employer] desk. Faye Hinojosa APRN, CNP - 02/18/2019 6:31 PM CDT After discussion, pt would like to start Xeljanz for management of her UC. I filled out paperwork, in outbox. She needs updated TB testing (ordered). Can we start on PA? Tried/failed mesalamine, prednisone. With hx of melanoma on trunk, immmunomodulators and anti-TNFs are not ideal agents. Would accept Entyvio as alternative if insurance prefers. documented in this encounter Plan of Treatment Upcoming Encounters Date Type Specialty Care Team Description 05/05/2022 Appointment Chemo Therapy/Infusion Services 09/15/2022 Telemedicine Gastroenterology Eusebio Haines MD [address] [place] [address] (Wo rk) documented as of this encounter Results (ABNORMAL) Lipid Panel - LDLD If Trig High (04/24/2019 12:49 PM CDT) [facility] Time Signature Cholesterol 192 0 - 199 04/24/2019 [facility] mg/dL 2:52 PM CDT LABORATORY Triglyceride 173 (H) <=149 04/24/2019 [facility] mg/dL 2:52 PM CDT LABORATORY HDL Cholesterol 78 >=40 04/24/2019 [facility] mg/dL 2:52 PM CDT LABORATORY LDL, Calculated 79 <130 04/24/2019 [facility] mg/dL 2:52 PM CDT LABORATORY Non HDL Chol, 114 mg/dL 04/24/2019 [facility] Calculated 2:52 PM CDT LABORATORY Cholesterol/HDL 2.5 04/24/2019 [place] Ratio 2:52 PM CDT LABORATORY Hours Fasting 1 04/24/2019 [facility] 2:52 PM CDT LABORATORY Specimen Anatomical Collection Method / Collection Time Recei peña Time (Source) Location / Volume Laterality Blood Venipuncture / 04/24/2019 12:49 9 Unknown PM CDT 12:49 PM CDT Faye Felton APRN, CNP LAB_1 Performing Organization Address [facility]/ZIP [facility] Phon e Number [facility] [address] [place], [place] [phone] C Reactive Protein (04/24/2019 12:49 PM CDT) P athologist Signature C-Reactive <0.5 0.0 - 0.7 04/24/2019 [facility] Protein mg/dL 2:52 PM CDT LABORATORY Specimen Anatomical Collection Method / Collection Time Recei peña Time (Source) Location / Volume Laterality Blood Venipuncture / 04/24/2019 12:49 9 Unknown PM CDT 12:49 PM CDT Faye Felton APRN HVAC ESTIMATOR LAB_1 Performing Organization Address [facility] e Number [facility] [address] [place], [place] [phone] Hepatic Function Panel (04/24/2019 12:49 PM CDT) P athologist Signature Alkaline 50 40 - 150 04/24/2019 [facility] Phosphatase U/L 2:52 PM CDT LABORATORY Bilirubin, Total 0.2 0.2 - 1.2 04/24/2019 [place] mg/dL 2:52 PM CDT LABORATORY Bilirubin, 0.1 0.0 - 0.5 04/24/2019 [facility] Direct mg/dL 2:52 PM CDT LABORATORY AST (SGOT) 21 10 - 40 04/24/2019 [facility] U/L 2:52 PM CDT LABORATORY ALT (SGPT) 30 0 - 55 U/L 04/24/2019 [facility] 2:52 PM CDT LABORATORY Protein, Total 6.7 6.4 - 8.3 04/24/2019 [facility] g/dL 2:52 PM CDT LABORATORY Albumin 3.5 3.5 - 5.0 04/24/2019 [place] g/dL 2:52 PM CDT LABORATORY Specimen Anatomical Collection Method / Collection Time Recei peña Time (Source) Location / Volume Laterality Blood Venipuncture / 04/24/2019 12:49 9 Unknown PM CDT 12:49 PM CDT Faye Felton APRN, CNP LAB_1 Performing Organization Address City/State/ZIP Code Phon e Number [facility] [address] [place] [address] documented in this encounter Visit Diagnoses Diagnosis Ulcerative chronic pancolitis without co mplications (HRC) - Primary Fieldon ulcerative (chronic) colitis documented in this encounter Care Teams Printed Circuit Boards Inspector Relationship Specialty Start Date End Date Sheeba Castillo APRN, HVAC ESTIMATOR PCP - General Nurse Practitioner 07/20/16 [address] [place] Dinh [id number] documented as of this encounter
--- OUTSIDE RECORDS SUMMARY | 2022-03-20 16:10 | XMS_ITS | Encounter Summary ---
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 CBC AND DIFFERENTIAL Routine 01/30/2019 11:46 Chronic ulcerati ve Results for this PANEL AM CDT proctitis with procedure are in rectal bleeding the results (HRC) section. CREATININE / GFR Routine 01/30/2019 11:46 Chronic ulcerative R esults for this AM CDT proctitis with procedure are in rectal bleeding the results (HRC) section. COMPLETE BLOOD Routine 01/30/2019 11:46 Chronic ulcerative Res ults for this COUNT-W/DIFF AM CDT proctitis with procedure are in rectal bleeding the results (HRC) section. LIVER PANEL(HEPATIC Routine 01/30/2019 11:46 Chronic ulcerativ e Results for this FUNCTION PANEL) AM CDT proctitis with procedure are in rectal bleeding the results (HRC) section. ELECTROLYTE PANEL Routine 01/30/2019 11:46 Chronic ulcerative Results for this AM CDT proctitis with procedure are in rectal bleeding the results (HRC) section. C-REACTIVE PROTEIN Routine 01/30/2019 11:46 Chronic ulcerative Results for this AM CDT proctitis with procedure are in rectal bleeding the results (HRC) section. documented in this encounter Results CONTAINER TEST (01/30/2019 2:56 PM CDT) athologist Signature Container Done 01/30/2019 [facility] Given 4:00 PM CDT LABORATORY Specimen Anatomical Collection Method Collection Time Receive d Time (Source) Location / / Volume Laterality Other Specimen 01/30/2019 2:56 PM 019 2:57 Type CDT PM CDT Faye Felton XEROX MACHINE MECHANIC, EMERGENCY WORKER LAB_1 Performing Organization Address City/State/ZIP Code Phon e Number [facility] [address] [place] [address] Complete Blood Count-W/Diff (01/30/2019 11:46 AM CDT) athologist Signature WBC 9.4 3.5 - 10.5 01/30/2019 [facility] x10(9)/L 12:03 PM CDT LABORATORY RBC 4.58 3.90 - 01/30/2019 [facility] 5.03 12:03 PM CDT LABORATORY x10(12)/L Hemoglobin 14.5 12.0 - 01/30/2019 [facility] 15.5 g/dL 12:03 PM CDT LABORATORY HCT 41.8 34.9 - 01/30/2019 [facility] 44.5 % 12:03 PM CDT LABORATORY MCV 91.3 80.0 - 01/30/2019 [facility] 100.0 fL 12:03 PM CDT LABORATORY MCH 31.7 27.6 - 01/30/2019 [facility] 33.3 pg 12:03 PM CDT LABORATORY MCHC 34.7 31.5 - 01/30/2019 [facility] 35.2 g/dL 12:03 PM CDT LABORATORY RDW 12.4 11.9 - 01/30/2019 [facility] 15.5 % 12:03 PM CDT LABORATORY Platelets 352 150 - 450 01/30/2019 [facility] x10(9)/L 12:03 PM CDT LABORATORY Automated NRBC 0 <=0 /100 01/30/2019 [facility] WBC 12:03 PM CDT LABORATORY Neutrophil 5.5 1.7 - 7.0 01/30/2019 [facility] Absolute 10(9)/L 12:03 PM CDT LABORATORY Lymphocyte 2.9 1.0 - 4.8 01/30/2019 [facility] Absolute 10(9)/L 12:03 PM CDT LABORATORY Monocytes 0.4 0.2 - 0.9 01/30/2019 [facility] Absolute 10(9)/L 12:03 PM CDT LABORATORY Eosinophil 0.4 0.0 - 0.5 01/30/2019 [facility] Absolute 10(9)/L 12:03 PM CDT LABORATORY Basophil 0.1 0.0 - 0.3 01/30/2019 [facility] Absolute 10(9)/L 12:03 PM CDT LABORATORY Immature Gran % 0.3 0.0 - 0.5 01/30/2019 [facility] % 12:03 PM CDT LABORATORY Specimen Anatomical Collection Method / Collection Time Recei peña Time (Source) Location / Volume Laterality Blood Venipuncture / 01/30/2019 11:46 9 Unknown AM CDT 11:46 AM CDT Faye Felton APRN, EMERGENCY WORKER LAB_1 Performing Organization Address City/State/ZIP Code Phon e Number [facility] [address] [place] [address] Hepatic Function Panel (01/30/2019 11:46 AM CDT) athologist Signature Alkaline 92 40 - 150 01/30/2019 [facility] Phosphatase U/L 2:39 PM CDT LABORATORY Bilirubin, Total 0.3 0.2 - 1.2 01/30/2019 [facility] mg/dL 2:39 PM CDT LABORATORY Bilirubin, 0.1 0.0 - 0.5 01/30/2019 [facility] Direct mg/dL 2:39 PM CDT LABORATORY AST (SGOT) 24 10 - 40 01/30/2019 [place] U/L 2:39 PM CDT LABORATORY ALT (SGPT) 28 0 - 55 U/L 01/30/2019 [facility] 2:39 PM CDT LABORATORY Protein, Total 7.7 6.4 - 8.3 01/30/2019 [facility] g/dL 2:39 PM CDT LABORATORY Albumin 3.8 3.5 - 5.0 01/30/2019 [facility] g/dL 2:39 PM CDT LABORATORY Specimen Anatomical Collection Method / Collection Time Recei peña Time (Source) Location / Volume Laterality Blood Venipuncture / 01/30/2019 11:46 9 Unknown AM CDT 11:46 AM CDT Faye Felton APRN, EMERGENCY WORKER LAB_1 Performing Organization Address City/State/ZIP Code Phon e Number [facility] [address] [place] [address] (ABNORMAL) Electrolytes (NA, K, CL, Bicarb) (01/30/2019 11:46 AM CDT) P athologist Signature Sodium 137 136 - 145 01/30/2019 [facility] mmol/L 2:39 PM CDT LABORATORY Potassium 3.4 (L) 3.5 - 5.1 01/30/2019 [facility] mmol/L 2:39 PM CDT LABORATORY Chloride 102 98 - 109 01/30/2019 [facility] mmol/L 2:39 PM CDT LABORATORY CO2 24 20 - 29 01/30/2019 [facility] mmol/L 2:39 PM CDT LABORATORY Anion Gap 11 7 - 16 01/30/2019 [facility] mmol/L 2:39 PM CDT LABORATORY Specimen Anatomical Collection Method / Collection Time Recei peña Time (Source) Location / Volume Laterality Blood Venipuncture / 01/30/2019 11:46 9 Unknown AM CDT 11:46 AM CDT Faye Felton APRN, CNP LAB_1 Performing Organization Address [facility] [address] [place], [place] [phone] Creatinine (01/30/2019 11:46 AM CDT) P athologist Signature Creatinine 0.70 0.55 - 01/30/2019 [facility] 1.02 mg/dL 2:39 PM CDT LABORATORY GFR, Estimated >60 >60 01/30/2019 [facility] mL/min/1.7 2:39 PM CDT LABORATORY 3m2 GFR, Est If >60 >60 01/30/2019 [facility] mL/min/1.7 2:39 PM CDT LABORATORY [place] 3m2 Specimen Anatomical Collection Method / Collection Time Recei peña Time (Source) Location / Volume Laterality Blood Venipuncture / 01/30/2019 11:46 9 Unknown AM CDT 11:46 AM CDT Faye Felton APRN, CNP LAB_1 Performing Organization Address [facility] [address] [place] [address] (ABNORMAL) C Reactive Protein (01/30/2019 11:46 AM CDT) P athologist Signature C-Reactive 1.7 (H) 0.0 - 0.7 01/30/2019 [facility] Protein mg/dL 2:39 PM CDT LABORATORY Specimen Anatomical Collection Method / Collection Time Recei peña Time (Source) Location / Volume Laterality Blood Venipuncture / 01/30/2019 11:46 9 Unknown AM CDT 11:46 AM CDT Faye Felton APRN, CNP LAB_1 Performing Organization Address [facility] e Number [facility] [address] [place] [address] documented in this encounter Visit Diagnoses Diagnosis 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
--- OUTSIDE RECORDS SUMMARY | 2022-03-20 16:10 | XMS_ITS | Encounter Summary ---
:1975 Author Organization [employer] Address [address] [address] Care Team Providers Name Role Phone Sheeba Castillo APRN, [employer] Primary Care Provider [phone] Reason for Referral (Routine) - Closed Specialty Diagnoses / Procedures Referred By Contact Refer red To Contact Procedures Orion Robles MD Endoscopy, sigmoid [address] [place], [place] [address] Referral ID Status Reason Start Date Expiration Date Visits Requ ested Visits Authorized [id number] Closed 05/01/2019 07/30/2020 1 1 HIC PRE PRESS TRADES WORKER Reason for Visit Auth/Cert Specialty Diagnoses / Procedures Referred By Contact Refer red To Contact Diagnoses Ulcerative colitis flare Referral ID Status Reason Start Date Expiration Date Visits Requ ested Visits Authorized [id number] 1 1 Encounter Details Date Type Department Care Team Description 04/30/2019 - Hospital Susie Hunter Md, Hospital Med icine [address] [place] [address] Ulcerative rectosigmoiditis with rectal bleeding (HRC); 05/05/2019 Encounter General Medicine Burton Acosta DO [address] [place], [place] [id number] Hematochezia [address] Johnson MD [address] [place], [place] [id number] [facility]. Alejandro Ang MD [address] [place], [place] [address] 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 documented as of this encounter Last Filed Vital Signs Vital Sign Reading Time Taken Comments Blood Pressure 139/97 05/05/2019 7:22 AM GRAPHIC PRE PRESS TRADES WORKER Pulse 90 05/05/2019 7:22 AM GRAPHIC PRE PRESS TRADES WORKER Temperature 36.7 ??C (98 ??F) 05/05/2019 7:22 AM GRAPHIC PRE PRESS TRADES WORKER Respiratory Rate 18 05/05/2019 7:22 AM GRAPHIC PRE PRESS TRADES WORKER Oxygen Saturation 98% 05/05/2019 7:22 AM GRAPHIC PRE PRESS TRADES WORKER Inhaled Oxygen Concentration - - Weight 82.6 kg (182 lb) 04/30/2019 7:03 PM GRAPHIC PRE PRESS TRADES WORKER Height 170.2 cm (5' 7) 04/30/2019 7:03 PM GRAPHIC PRE PRESS TRADES WORKER Body Mass Index 28.51 04/30/2019 7:03 PM GRAPHIC PRE PRESS TRADES WORKER documented in this encounter Discharge Summaries Alejandro Ang MD - 05/05/2019 9:04 AM CST DISCHARGE SUMMARY Patient ID: Idania Duarte [id number] 44 y.o. 1975 Admit date: 04/30/2019 Discharge date: 05/05/2019 Final Discharge Diagnoses: Ulcerative rectosigmoiditis with rectal bleeding (HRC) HTN (hypertension) (HRC) Overweight (HRC) Ulcerative colitis with rectal bleeding (HRC) C. difficile colitis Hematochezia * No resolved hospital problems. * HPI: Per Dr Potter's initial H&P: Idania Duarte is a 44 y.o. female with PMHx significant for ulcerative colitis and HTN who presents as a direct admit from GI w/ ongoing pain and rectal bleeding refractory to OP oral steroid burst, admitted to medicine for further E&M and GI consultation. Pt w/ hx of UC, had been controlled w/ Lialdi but in recent months has had worsneing frequency, urgency, pain and rectal bleeding, was started on prednisone burst recently w/o significant improvement in her symptoms, also failed xeljanz which was started out of desire to avoid infusions. Pt now admitted from GI clinic given ongoing bleedingand pain, eval for IV steroids and potential rescue remicade per OP GI note. Pt denies fevers or chills, no nausea or vomiting, although PO intake somewhat poor. No willing to do infusions if will get her UC under control. Please see the admission history and physical for full details. Hospital Course: Ulcerative Colitis flare. The patient presented with frequent blood stools despite outpatient oral steroids for her ulcerative colitis. She was started on IV solumedrol here and quickly improved. GI was consulted and performed colonoscopy which showed severe active proctitis. Infectious work-up was neg ative. She was started on remicaide here and tolerated this well and will continue a prednisone taper after discharge as outlined below. - Procedures: colonsocopy - Consults: GI - Significant Diagnostic Studies: Colonoscopy: - Severe (Tam Score 3) proctitis ulcerative colitis, unchanged since the last examination. Biopsied. - Normal mucosa in the sigmoid colon. Biopsied. - Preparation of the colon was poor. - Stool in the rectum, in the recto-sigmoid colon and in the sigmoid colon. Disposition: home Condition at Discharge: Stable Pending Tests: none Discharge Medications: Done while pt still in hospital bed Medication List CHANGE how you take these medications mesalamine 1000 MG suppository Commonly known as: CANASA Insert 1 Suppository rectally daily at bedtime. What changed: Another medication with the same name was removed. Continue taking this medication, and follow the directions you see here. predniSONE 10 MG tablet Commonly known as: DELTASONE 4 tabs daily for 2 wk, 3 tabs daily for 1 wk, 2 tabs daily for 1 wk, 1 tab daily for 1 wk, 1/2 tab daily for 1 wk What changed: additional instructions CONTINUE taking these medications Calcium Carbonate Antacid 1000 MG cholestyramine 4 GM/DOSE powder Commonly known as: QUESTRAN Take 4 g by mouth daily. Ok to increase to twice daily if needed. Separate at least 2 hours from other medications. dicyclomine 20 MG tablet Commonly known as: BENTYL TAKE 1 TABLET BY MOUTH 4 TIMES DAILY NEEDED MULTI-VITAMIN OR norethindrone-eth estradiol 1-35 MG-MCG tablet Commonly known as: DASETTA 1/35 Take 1 Tablet by mouth daily. Takes continuously triamterene-hydrochlorothiazide 37.5-25 MG tablet Commonly known as: MAXZIDE-25 TAKE 1 TABLET BY MOUTH DAILY. STOP taking these medications Phentermine HCl 37.5 MG capsule topiramate 25 MG tablet Commonly known as: TOPAMAX XELJANZ 10 MG Tabs Generic drug: Tofacitinib Citrate Where to Get Your Medications These medications were sent to [facility] [address] [place] [id number] ?? predniSONE 10 MG tablet Code Status: Code status: FULL Follow up: Sheeba Castillo, BANDER AND CELLOPHANER MACHINE, [employer] [address] [place] [id number] Schedule in 7-10 days after discharge Future Appointments Provider Department Center 07/01/2019 4:20 PM Elin Christopher; EXAM BLAISE [facility] Recommendations for primary care physician: none See the electronic medical record for full laboratory and diagnostic test results. For full discharge orders and instructions, please see the after visit summary for this hospitalization. Patient was seen by me on day of discharge and was felt stable to leave the hospital. Total time spent on discharge: 35 minutes Alejandro Ang MD [phone] HIC PRE PRESS TRADES WORKER documented in this encounter Discharge Instructions MedicationsScherber, Basia J, PharmD - 05/05/2019 9:24 AM CST You are taking cholestyramine (Questran). This medication can decrease the absorption of other medications. It is best to separate cholestyramine from other medications. Recommend to take cholestyramine 1 hour after other medications -OR- wait to take other medications until 2 hours after cholestyramine. If you prefer to take your medications (oral contraceptive, prednisone, triamterene-hydrochlorothiazide) in the morning, would recommend taking cholestyramine at noon with your lunch. Basia Childs, Surya, [facility] 05/05/2019, 9:24 AM HIC PRE PRESS TRADES WORKER documented in this encounter Medications at Time [...] 1-35 MG-MCG continuously tabletIndications: Well adult exam predniSONE 4 tabs daily for 2 84 [...] documented as of this encounter Progress Notes Acosta Farrell RN - 05/05/2019 1:47 PM CST DISCHARGE O: Patient safely discharged to home. D: Patient is alert and oriented x 4. Pt up independently . Discharge criteria met. Vaccines addressed prior to discharge. A: Discharge instructions and medications reviewed and given to patient. Written medication education material provided on steroids including possible side effects. Prescriptions filled by [facility] pharmacy. Belongings checklist reviewed with patient and belongings sent. Equipment sent: none. Supplies sent none. Care plan issues addressed and education record updated. R: Patient verbalizes understanding and teaches back discharge instructions. Patient discharged by: ambulation with family. Acosta Farrell RN 05/05/2019, 1:48 PM HIC PRE PRESS TRADES WORKER Suzan Hernandez APRN, [employer] - 05/05/2019 9:59 AM CST GASTROENTEROLOGY DAILY PROGRESS NOTE Admit Date: 04/30/2019 SUBJECTIVE: Resting comfortably in bed, alert and interactive. Feels great - no complaints of abdominal pain or nausea. Had a soft semiformed stool this am with minimal blood. No fever, chills or rigors. OBJECTIVE: Vitals: Temp (24hrs), Min:36.7 ??C (98 ??F), Max:36.9 ??C (98.5 ??F) Vital Signs Temp: 36.7 ??C (98 ??F), Pulse: 90, Resp: 18, SpO2: 98 %, BP: (!) 139/97, O2 Device: room air I/O last 3 completed shifts: In: 740 [Oral:740] Out: - General appearance: alert, cooperative, no distress, appears stated age, Lungs: clear to auscultation bilaterally and Abdomen: soft, non-tender; bowel sounds normal; no masses, no organomegaly Imaging (past 12 months) No results found. Labs: No results for input(s): WBC, HGB, PLTS, INR in the last 72 hours. No results for input(s): ALKPHOS, ALT, AST, BILIRUBINDIR, ALB in the last 72 hours. Invalid input(s): BILI Flex sig biopsies: FINAL DIAGNOSIS A. Colon, sigmoid, biopsy: ?? No diagnostic abnormality ?? B. Colon, rectum, biopsy: ?? Chronic active colitis with ulceration ?? Negative CMV and HSV immunostains ?? Negative for dysplasia ASSESSMENT/PLAN: Active problems: Patient Active Hospital Problem List: Idania Duarte is a 44 y.o. female admitted with: Ulcerative rectosigmoiditis with rectal bleeding (HRC) Hematochezia HTN (hypertension) (HRC) Overweight (HRC) ?? 44 y.o.female followed by GI for ulcerative colitis flare in the setting of steroids (since September), Lialda and Xeljanz. Remicade 5mg/kg dose #1 induction given 05/03 to good effect. Plan: 1. OK for dc today 2. low residue diet 3. Steroid Taper: discharge on ?? -40 mg prednisone daily for two weeks then, ?? -30 mg prednisone daily for one week then, ?? -20 mg prednisone daily for one week then, ?? -10 mg daily for one week then, ?? -5 mg daily for one week 5. Okay to continue Canasa for??symptomatic improvement 6. GI will arrange followup and future Remicade infusions weeks 2,6, q8 ongoing. ?? HIC PRE PRESS TRADES WORKER Sunita Ruelas MD - 05/04/2019 1:03 PM CST Images from the original note were not included. RTWORKINTERNAL MEDICINE HOSPITALIST PROGRESS NOTE PRIMARY CARE PHYSICIAN: Dr. Sheeba Castillo, RUDY, [employer] DATE OF ADMISSION: 04/30/2019 BRIEF DETAILS OF ADMISSION HPI Brief [place]: She was admitted with abdominal pain rectal bleeding Pt w/ hx of UC, had been controlled w/ Lialdi but in recent months has had worsneing frequency, urgency, pain and rectal bleeding, was started on prednisone burst recently w/o significant improvement in her symptoms, also failed xeljanzwhich was started out of desire to avoid infusions. Pt now admitted from GI clinic given ongoing bleeding and pain, eval for IV steroids and potential rescue remicade per OP GI note. Pt denies fevers or chills, no nausea or vomiting, although PO intake somewhat poor. No willing to do infusions if willget her UC under control. COURSE OF STAY IN HOSPITAL//ASSESSMENT/PLAN: SYNOPSIS: Idania Duarte is a 44 y.o. female with ulcerative colitis and HTN who presented as a direct admit from GI w/ ongoing pain and rectal bleeding refractory to OP oral steroid burst was treatedwith iv steroids switched to oral with slow taper prednisone plans, Got remicaide 05/03/2019, monitoring not day due to recurring rectal stool_blood diarrhea, If well can likely discharge in am with outpatient GI (Gastroenterology) follow up post dischage from the hospital. If not well plan is restart IV STEROIDS Otherwise All infectious studies negative till date so far, was seen by GI (Gastroenterology) and Flex sig/ ??Mayo3 severe proctitis with endoscopically quiescent sigmoid mucosa. ??No ramón ulceration to suggest HSV or CMV the overlying ulcerative colitis but biopsies obtained. ??It is noted that the sigmoid does not appear to have active disease. (Gastroenterology) recommedation Okay to continue Canasa for??symptomatic improvement May consider tacrolimus for refractory proctitis instead of canasa ULCERATIVE COLITIS ACUTE FLARE Pt w/ hx of UC, had been controlled w/ Lialda but in recent months has had worsneing frequency, urgency, pain and rectal bleeding, was started on prednisone burst recently w/o significant improvement in her symptoms, also failed xeljanz which was started out of desire to avoid infusions. Stool studies have been negative. - treated with IV steroids improved but now has recurring diarrhea with blood ----> being monitored - given remicaide gtt (infusion) 05/03/2019 - continue mesalamine for now - continue questran - f/u colonoscopy biospies Potassium Mg++ Magnesium normal Stool enteric panel negative 04/25 clostridium difficle infection negative 04/25 Blood sugars reviewed CHRONIC STABLE MEDICAL ISSUES (OTHER DISEASES) BENIGN HYPERTENSION -She has benign stable Hypertension -this is chronic stable medical problem -BP being followed here, continue home regimen maxzide - blood pressure high on off noted liekly from stress here follow outpatient Continue OCP home medication controlpills DVT PROHYLAXIS -lovenox CODE STATUS -full code DC PLANNING -Unclear at the moment, To be decided based on all of the above. SUBJECTIVE The patient doing well in general overall. No diarrhea No blood in stools Was wondering remicaide GI (Gastroenterology) later added infusion Met with hisband at the bedside Todays care plan disussed with patient and care staff OBJECTIVE Temp: 37.1 ??C (98.8 ??F) BP: 127/79 Pulse: 96 Resp: 18 SpO2: 97 % Temp Min: 36.8 ??C (98.2 ??F) Max: 37.2 ??C (99 ??F) BP Min: 127/79 Max: 149/89 Pulse Min: 96 Max: 103 Resp Min: 17 Max: 18 SpO2 Min: 96 % Max: 99 % ADMIT WEIGHT: Weight: 82.6 kg (182 lb) CURRENT WEIGHT : Weight: 82.6 kg (182 lb) I&O LAST 24 hours: Intake/Output Summary (Last 24 hours) at 05/04/2019 1303 Last data filed at 05/04/2019 0803 Gross per 24 hour Intake 520 ml Output -- Net 520 ml Pertinent Positive on exam: Benign belly No palor Moist mucus membrane PHYSICAL EXAM: Gen: NAD Lungs: CTA Bilaterally Cor: RRR nl s1s2, no murmur, no rub, no gallop Abd: +BS, non tender, non distended, no rebound or guarding Ext: no clubbing, cyanosis, or edema FILM PROCESS OPERATOR: no FND ACTIVE MEDICATIONS IN HOSPITAL ??? control pill (patient's own medication) 1 Tablet Oral Daily ??? cholestyramine 4 g Oral Daily with meal ??? enoxaparin 40 mg Subcutaneous Q24H ??? mesalamine 1,000 mg Rectal At Bedtime ??? POTASSIUM (HIGH) REPLACEMENT PROTOCOL - Goal is 4 mMol/L Miscellaneous Q8H ??? predniSONE 40 mg Oral Daily ??? triamterene-hydrochlorothiazide 1 Tablet Oral Daily LAW LABS THIS ADMISSION Recent Labs 05/02/19 0615 05/03/19 0619 05/04/19 0637 05/04/19 1235 K 3.9 < > 4.7 3.6 4.2 CREATININE 0.57 -- 0.67 -- -- < > = values in this interval not displayed. Recent Labs 05/03/19 0619 MG 2.2 Sunita Ruelas MD, Hospitalist, Internal Medicine [id number] [facility] Hospitalist and Geriatrics services Beeper [phone] After Hours Please call alumni relations coordinator service evening staff from [email or web address], password is [email or web address] HIC PRE PRESS TRADES WORKER Eileen Bernabe, BANDER AND CELLOPHANER MACHINE, [employer] - 05/04/2019 11:47 AM CST GI PROGRESS NOTE Admit Date: 04/30/2019 6:37 PM HPI: Idania Duarte is a 44 y.o. female with h/o left sided UC admitted with worsening diarrhea andsymptoms concerning of ulcerative colitis flare with lack of response to Xeljanz+Lialda+oral prednisone, infectious studies negative. IV steroids started, with good response - fewer stools, with form, no urgency, no pain. Able to eat without flaring. IV steroids discontinued yesterday, oral [id number] given this am. Received Remicade 5mg/kg IV last evening, tolerated without issue. Today - after breakfast, Idania had a large bloody loose stool, confirmed by nursing. Denies pain, fever, urgency. Past Medical History: Diagnosis Date ??? BCC (basal cell carcinoma), leg 08/11/2011 ??? BP (high blood pressure) (HRC) ??? Chronic headaches 08/11/2011 ??? Clostridium difficile colitis 01/2012 ??? Concussion 08/11/2011 ??? HTN (hypertension) (HRC) 08/11/2011 ??? Hx of tonsillectomy 08/11/2011 ??? Irritable bowel syndrome 11/29/2002 ??? 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 Obesity (HRC) 08/11/2011 Past Surgical History: Procedure Laterality Date ??? CYST REMOVAL left wrist ??? LAP CHOLECYSTECTOMY 07/12/2016 ??? TONSILLECTOMY Medications: Reviewed. Exam: Vitals: Vitals: 05/03/19 1557 05/04/19 0000 05/04/19 0738 BP: 136/85 (!) 149/89 127/79 Pulse: 99 (!) 103 96 Resp: 18 18 Temp: 98.2 ??F (36.8 ??C) 99 ??F (37.2 ??C) 98.8 ??F (37.1 ??C) SpO2: 96% 99% 97% Weight: Gen: AAOx4, comfortable-appearing Pulm: Good inspiratory effort with bilateral chest rise, respirations unlabored. Abd: nontender, nondistended Labs: Reviewed in full. Lab Results Component Value Date C-Reactive Protein 0.3 05/02/2019 Lab Results Component Value Date WBC 14.6 (H) 05/01/2019 RBC 4.14 05/01/2019 Hemoglobin 12.6 05/01/2019 HCT 39.6 05/01/2019 MCV 95.7 05/01/2019 RDW 13.2 05/01/2019 Platelets 348 05/01/2019 Imaging: Reviewed in full. Flex sig11/7 per endoscopist: Yonatan??3 severe proctitis with endoscopically quiescent sigmoid mucosa. ??No ramón ulceration to suggest HSV or CMV the overlying ulcerative colitis but biopsies obtained. ??It is noted that the sigmoiddoes not appear to have active disease. Assessment: Idania Duarte is a 44 y.o. female admitted with: Ulcerative rectosigmoiditis with rectal bleeding (HRC) Hematochezia HTN (hypertension) (HRC) Overweight (HRC) 44 y.o.female followed by GI for ulcerative colitis flare. Quick improvement on IV steroids, but nowafter two doses oral prednisone she has had a bloody stool. Out/Inpatient steroid use is likely the reason for elevated WBC. Remicade given last evening would likely not be adequate to address inflammation. She has not responded to oral prednisone prior to this admission, but we had hoped that IV steroids would reduce inflammation enough for oral steroid taper to bridge her until Remicade becomes effective. Plan: 1. Recommend she remain inpt today, given the severe inflammation and her prior refractory response to prednisone oral.. 2. If bloody stool recurs, would restart IV steroids (solu-medrol 20mg q8) 3. low residue diet 4. Steroid Taper: discharge on ?? -40 mg prednisone daily for two weeks then, ?? -30 mg prednisone daily for one week then, ?? -20 mg prednisone daily for one week then, ?? -10 mg daily for one week then, ?? -5 mg daily for one week 5. Okay to continue Canasa for symptomatic improvement 6. May consider tacrolimus for refractory proctitis instead of canasa 7. GI will arrange followup and future Remicade infusions. Eileen Bernabe APRN, [facility] HIC PRE PRESS TRADES WORKER Sunita Ruelas MD - 05/03/2019 1:44 PM CST Images from the original note were not included. RTWORKINTERNAL MEDICINE HOSPITALIST PROGRESS NOTE PRIMARY CARE PHYSICIAN: Dr. Sheeba Castillo, RUDY, [facility] DATE OF ADMISSION: 04/30/2019 BRIEF DETAILS OF ADMISSION HPI Brief [place]: She was admitted with abdominal pain rectal bleeding Pt w/ hx of UC, had been controlled w/ Lialdi but in recent months has had worsneing frequency, urgency, pain and rectal bleeding, was started on prednisone burst recently w/o significant improvement in her symptoms, also failed xeljanzwhich was started out of desire to avoid infusions. Pt now admitted from GI clinic given ongoing bleeding and pain, eval for IV steroids and potential rescue remicade per OP GI note. Pt denies fevers or chills, no nausea or vomiting, although PO intake somewhat poor. No willing to do infusions if willget her UC under control. COURSE OF STAY IN HOSPITAL//ASSESSMENT/PLAN: SYNOPSIS: Idania Duarte is a 44 y.o. female with ulcerative colitis and HTN who presented as a direct admit from GI w/ ongoing pain and rectal bleeding refractory to OP oral steroid burst was treatedwith iv steroids switched to oral slow taper rped plan now, will be getting remicaide 05/03/2019 and likely discharge in am with outpatient GI (Gastroenterology) follow up post dischage from the hospital. All infectious studies negative till date so far, was seen by GI (Gastroenterology) and Flex sig11/7 ??Tam??3 severe proctitis with endoscopically quiescent sigmoid mucosa. ??No ramón ulceration to suggest HSV or CMV the overlying ulcerative colitis but biopsies obtained. ??It is noted that the sigmoid does not appear to have active disease. (Gastroenterology) recommedation Okay to continue Canasafor??symptomatic improvement May consider tacrolimus for refractory proctitis instead of canasa UC flare Pt w/ hx of UC, had been controlled w/ Lialdi but in recent months has had worsneing frequency, urgency, pain and rectal bleeding, was started on prednisone burst recently w/o significant improvement in her symptoms, also failed xeljanz which was started out of desire to avoid infusions. Stool studies have been negative. Now improving with IV steroids. - treated with and responded quickly to IV methylpred 20mg Q8 ----> oral prednisone slow taper plan - continue mesalamine for now - GI gtt (infusion) remicaide 05/03/2019 - f/u colonoscopy biospies Potassium Mg++ Magnesium normal Blood sugars reviewed CHRONIC STABLE MEDICAL ISSUES (OTHER DISEASES) BENIGN HYPERTENSION -She has benign stable Hypertension -this is chronic stable medical problem -BP being followed here, continue home regimen maxzide Continue OCP home medication controlpills DVT PROHYLAXIS -walking CODE STATUS -full code DC PLANNING -Unclear at the moment, To be decided based on all of the above. SUBJECTIVE The patient doing well in general overall. No diarrhea No blood in stools Was wondering remicaide GI (Gastroenterology) later added infusion Met with hisband at the bedside Todays care plan disussed with patient and care staff OBJECTIVE Temp: 36.9 ??C (98.4 ??F) BP: (!) 140/94 Pulse: 84 Resp: 18 SpO2: 96 % Temp Min: 36.9 ??C (98.4 ??F) Max: 37.4 ??C (99.3 ??F) BP Min: 129/79 Max: 140/94 Pulse Min: 84 Max: 104 Resp Min: 18 Max: 18 SpO2 Min: 93 % Max: 96 % ADMIT WEIGHT: Weight: 82.6 kg (182 lb) CURRENT WEIGHT : Weight: 82.6 kg (182 lb) I&O LAST 24 hours: Intake/Output Summary (Last 24 hours) at 05/03/2019 1345 Last data filed at 05/03/2019 1200 Gross per 24 hour Intake 2110 ml Output -- Net 2110 ml Pertinent Positive on exam: PHYSICAL EXAM: Gen: NAD Lungs: CTA Bilaterally Cor: RRR nl s1s2, no murmur, no rub, no gallop Abd: +BS, non tender, non distended, no rebound or guarding Ext: no clubbing, cyanosis, or edema FILM PROCESS OPERATOR: no FND ACTIVE MEDICATIONS IN HOSPITAL ??? control pill (patient's own medication) 1 Tablet Oral Daily ??? cholestyramine 4 g Oral Daily with meal ??? enoxaparin 40 mg Subcutaneous Q24H ??? inFLIXimab 5 mg/kg Intravenous Once ??? mesalamine 1,000 mg Rectal At Bedtime ??? POTASSIUM (HIGH) REPLACEMENT PROTOCOL - Goal is 4 mMol/L Miscellaneous Q8H ??? predniSONE 40 mg Oral Daily ??? triamterene-hydrochlorothiazide 1 Tablet Oral Daily LAW LABS THIS ADMISSION No results for input(s): PH, PCO2, PO2, HCO3 in the last 72 hours. Recent Labs 04/30/19194505/01/19 0632 WBC 15.9* 14.6* HGB 14.1 12.6 PLTS 390 348 INR 0.9 1.0 Recent Labs 04/30/19194505/01/19 0632 05/02/1915 05/02/19211205/03/1919 SODIUM 137 136 -- -- -- -- K 3.0* 3.9 < > 3.9 4.2 4.7 CHLORIDE 100 104 -- -- -- -- BICARB 27 23 -- -- -- -- BUN 13 10 -- -- -- -- CREATININE 0.73 0.62 -- 0.57 -- 0.67 < > = values in this interval not displayed. Recent Labs 04/30/19194505/01/1932 05/03/19 0619 MG 2.0 1.8 2.2 Recent Labs 04/30/191945 ALKPHOS 46 ALT 23 AST 14 BILIRUBINDIR 0.1 ALB 3.3* No results for input(s): TROP in the last 72 hours. Recent Labs 04/30/19194505/01/19 0632 GLUCOSE 114* 153* Sunita Ruelas MD, Hospitalist, Internal Medicine [id number] [facility]ly [facility] Hospitalist and Geriatrics services Beeper [phone] After Hours Please call alumni relations coordinator service evening staff from [email or web address], password is [email or web address] HIC PRE PRESS TRADES WORKER Eileen Bernabe, BANDER AND CELLOPHANER MACHINE, INSPECTOR [employer] - 05/03/2019 12:23 PM CST GI PROGRESS NOTE Admit Date: 04/30/2019 6:37 PM HPI: Idania Duarte is a 44 y.o. female with h/o left sided UC admitted with worsening diarrhea andsymptoms concerning of ulcerative colitis flare with lack of response to Xeljanz+Lialda+oral prednisone, infectious studies negative. IV steroids started, with good response. Now, fewer stools, with form, no urgency, no pain. Able to eat without flaring. IV steroids discontinued yesterday, oral prednisone 40mg given this am. Past Medical History: Diagnosis Date ??? BCC (basal cell carcinoma), leg 08/11/2011 ??? BP (high blood pressure) (HRC) ??? Chronic headaches 08/11/2011 ??? Clostridium difficile colitis 01/2012 ??? Concussion 08/11/2011 ??? HTN (hypertension) (HRC) 08/11/2011 ??? Hx of tonsillectomy 08/11/2011 ??? Irritable bowel syndrome 11/29/2002 ??? 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 Obesity (HRC) 08/11/2011 Past Surgical History: Procedure Laterality Date ??? CYST REMOVAL left wrist ??? LAP CHOLECYSTECTOMY 07/12/2016 ??? TONSILLECTOMY Medications: Reviewed. Exam: Vitals: Vitals: 05/02/19 1543 05/02/19 2300 05/03/19 0815 BP: 129/79 133/76 (!) 140/94 Pulse: (!) 103 (!) 104 84 Resp: Temp: 98.8 ??F (37.1 ??C) 99.3 ??F (37.4 ??C) 98.4 ??F (36.9 ??C) SpO2: 93% 96% 96% Weight: Gen: AAOx4, comfortable-appearing Pulm: Good inspiratory effort with bilateral chest rise, respirations unlabored. Abd: nontender, nondistended Labs: Reviewed in full. Lab Results Component Value Date C-Reactive Protein 0.3 05/02/2019 Lab Results Component Value Date WBC 14.6 (H) 05/01/2019 RBC 4.14 05/01/2019 Hemoglobin 12.6 05/01/2019 HCT 39.6 05/01/2019 MCV 95.7 05/01/2019 RDW 13.2 05/01/2019 Platelets 348 05/01/2019 Imaging: Reviewed in full. Flex sig05/01 per endoscopist: Yonatan??3 severe proctitis with endoscopically quiescent sigmoid mucosa. ??No ramón ulceration to suggest HSV or CMV the overlying ulcerative colitis but biopsies obtained. ??It is noted that the sigmoid does not appear to have active disease. Assessment: Idania Duarte is a 44 y.o. female admitted with: Ulcerative rectosigmoiditis with rectal bleeding (HRC) Hematochezia HTN (hypertension) (HRC) Overweight (HRC) 44 y.o.female followed by GI for ulcerative colitis flare. Quick improvement on IV steroids. Out/Inpatient steroid use is likely the reason for elevated WBC. Will start Remicade now to avoid lag in arranging the infusions as an outpatient. Plan: 1. Will start Remicade this hospitalization - ordered. No premeds - has had prednisone today. Pre-labs have been completed. 2. low residue diet 3. Steroid Taper: discharge on ?? -40 mg prednisone daily for two weeks then, ?? -30 mg prednisone daily for one week then, ?? -20 mg prednisone daily for one week then, ?? -10 mg daily for one week then, ?? -5 mg daily for one week 4. Okay to continue Canasa for symptomatic improvement 5. May consider tacrolimus for refractory proctitis instead of canasa 6. Will likely discharge tomorrow if all goes well 7. GI will arrange followup and future Remicade infusions. ?? Eileen Bernabe APRN, [facility] HIC PRE PRESS TRADES WORKER Orion Robles MD - 05/02/2019 6:11 PM CST Gastroenterology Progress Note Name: Idania Duarte : 1975 Admit Date: 04/30/2019 6:37 PM Date of Service: 05/02/2019 Subjective: Overnight progress and RN notes reviewed. Patient is without complaints, slept appropriately, and reports feeling much better today. She reports she only had 1 formed brown bowel movement today with no associated urgency or tenesmus or blood overnight. She reports feeling much improved from a stress standpoint as well. She denies abdominal pain and extra GI manifestations of IBD. Her appetite is intact and she tolerated food. Objective: Physical Examination: General: Pleasant age appearing female in NAD. Vital Signs: Reviewed. Please see [facility] for completed details. BP 129/79 (BP Location: Right Arm, BP Cuff Size: Regular) Pulse (!) 103 Temp 37.1 ??C (98.8 ??F)(Oral) Resp 18 Ht 1.702 m (5' 7) Wt 82.6 kg (182 lb) SpO2 93% BMI 28.51 kg/m?? HEENT: NCAT, PERRL, EOMI, no scleral icterus, no rhinorrhea, no oropharyngeal exudates, no oral lesions, MMM Chest: CTA without crackles or wheezes, no accessory muscle use. Cardiovascular: RRR without murmur. Abdomen: soft, NTND, BS+. No rebound Musculoskeletal: Moving all extremities without difficulty. Lymphatic: No LE edema bilaterally. Skin: No appreciable jaundice or skin lesions. Neurological: AOx3. Psych: Normal affect and mood with appropriate eye contact. Labs, Imaging and Endoscopy: Reviewed. Please see [facility] for complete details. CRP still normal Fecal per pending Assessment/Recommendations: Mrs. Duarte is a 44 year old woman with with a PMH substantial for left sided ulcerative colitis, IBS, remote melanoma s/p excision, HTN, and obesity who presented for worsening diarrhea symptoms. Patient presented with concerning symptoms for ulcerative colitis flare and in particular proctitis symptoms. Given lack of response to Xeljanz and negative infectious studies completed a flexible sigmoidoscopy to confirm suspected severe proctitis and take biopsies to rule out overlying infectious etiology. On flexible sigmoidoscopy patient had Tam 3 severe proctitis with endoscopically quiescent sigmoid mucosa. No ramón ulceration to suggest HSV or CMV the overlying ulcerative colitis but biopsies obtained. It is noted that the sigmoid does not appear to have active disease. Patient has had significant clinical response though suspect it will be slower for endoscopic response. Will transition to 40mg oral prednisone starting tomorrow given response to IV steroids. If does well could potentially discharge by 05/04. Will tentatively plan of close clinic follow up with GINI Hinojosa to determine biologic therapy of choice. (patient favors infliximab) ?? Recommendations: -strict documentation of bowel frequency, blood quantity -low residue diet -20 mg IV methylprednisolone TID, transition to the following steroid taper 05/03 Steroid Taper: -40 mg prednisone daily for two weeks then, -30 mg prednisone daily for one week then, -20 mg prednisone daily for one week then, -10 mg daily for one week then, -5 mg daily for one week -Okay to continue Canasa for symptomatic improvement -May consider tacrolimus for refractory proctitis instead of canasa -f/u path -pharmacologic DVT prophylaxis -Anticipate 05/04 discharge if continues to improve ? Gastroenterology will continue to follow. Please page with any questions and/or concerns. Orion Robles MD Department of Gastroenterology [facility] HIC PRE PRESS TRADES WORKER Alejandro Ang MD - 05/02/2019 11:24 AM CST DAILY PROGRESS NOTE Subjective: Patient doing well this morning. Colonoscopy yesterday showed severe proctitis. Symptoms much improved with iv steroids. Only one stool this morning. No abdominal pain but feeling gassy. No fevers or chills. Objective: Vitals: BP 129/78 (BP Location: Right Arm, BP Cuff Size: Regular) Pulse 81 Temp 36.9 ??C (98.5 ??F) (Oral) Resp 18 Ht 1.702 m (5' 7) Wt 82.6 kg (182 lb) SpO2 92% BMI 28.51 kg/m?? I/O last 3 completed shifts: In: 1407 [Oral:850; IV:557] Out: - General: patient is alert and in no acute distress HEENT: conjunctiva clear, MMM LUNGS: clear to auscultation bilaterally, no wheezes or crackles HEART: RRR ABDOMEN: soft, non-tender, bowel sounds present EXTREMITIES: trace edema to shins Skin: no gross lesions or rashes NEUROLOGIC: grossly intact Meds: reviewed in chart LABS: reviewed Hospital Encounter on 04/30/19 (from the past 24 hour(s)) Bedside Glucose Monitor Result Value Ref Range Glucose Whole Blood 122 70 - 180 mg/dL Potassium Result Value Ref Range Potassium 3.8 3.5 - 5.1 mmol/L Bedside Glucose Monitor Result Value Ref Range Glucose Whole Blood 193 (H) 70 - 180 mg/dL Bedside Glucose Monitor Result Value Ref Range Glucose Whole Blood 169 70 - 180 mg/dL Potassium Result Value Ref Range Potassium 3.9 3.5 - 5.1 mmol/L Creatinine / GFR Result Value Ref Range Creatinine 0.57 0.55 - 1.02 mg/dL GFR, Estimated >60 >60 mL/min/1.73m2 GFR, Est If >60 >60 mL/min/1.73m2 C Reactive Protein Result Value Ref Range C-Reactive Protein 0.3 0.0 - 0.7 mg/dL Assessment/Plan Idania Duarte is a 44 y.o. female with ulcerative colitis and HTN who presented as a direct admit from GI w/ ongoing pain and rectal bleeding refractory to OP oral steroid burst. UC flare Pt w/ hx of UC, had been controlled w/ Lialdi but in recent months has had worsneing frequency, urgency, pain and rectal bleeding, was started on prednisone burst recently w/o significant improvement in her symptoms, also failed xeljanz which was started out of desire to avoid infusions. Stool studies have been negative. Now improving with IV steroids. - continue IV methylpred 20mg Q8 - continue mesalamine for now - GI consulted, appreciate recs - f/u colonoscopy biospies ?? HTN. Resume maxide. FEN: regular diet Prophy: lovenox - higher risk due to UC flare Code status: full Dispo: home 2-3 days Alejandro Ang MD [phone] Total time: 25 minutes, >50% of which was spent counseling and coordinating care HIC PRE PRESS TRADES WORKER Monique Song RN - 05/01/2019 4:13 PM CST Vitial signs, oxygen saturations, LOC every 5 minutes during procedure. Patient placed on 2 liters oxygen to keep oxgyen above 90 percent. Patient tolerated procedure fine. Specimens collected and verified in jar with doctor and myself after completion of procedure. Patient VSS, denies pain, going to recovery. aware of having Lovenox this AM. HIC PRE PRESS TRADES WORKER Alejandro Ang MD - 05/01/2019 9:42 AM CST DAILY PROGRESS NOTE Subjective: Patient was admitted last night with UC flare for IV steroids. This morning states she is feeling much better since starting the steroids, only 2 stools last night, less bloody and starting to be more formed. Almost no abdominal pain. No fevers or chills. No chest pain or dyspnea. Has some chronic mild edema not worse lately. Objective: Vitals: BP 134/80 (BP Location: Left Arm, BP Cuff Size: Regular) Pulse 95 Temp 37.1 ??C (98.7 ??F) (Oral) Resp 18 Ht 1.702 m (5' 7) Wt 82.6 kg (182 lb) SpO2 97% BMI 28.51 kg/m?? I/O last 3 completed shifts: In: 1280 [Oral:480; IV:800] Out: - General: patient is alert and in no acute distress HEENT: conjunctiva clear, MMM LUNGS: clear to auscultation bilaterally, no wheezes or crackles HEART: RRR ABDOMEN: soft, non-tender, bowel sounds present EXTREMITIES: trace edema to shins Skin: no gross lesions or rashes NEUROLOGIC: grossly intact Meds: reviewed in chart LABS: reviewed Hospital Encounter on 04/30/19 (from the past 24 hour(s)) Complete Blood Count-W/Diff Narrative The following orders were created for panel order Complete Blood Count-W/Diff. Procedure Abnormality Status --------- ------ Complete Blood Count-W/Diff[[id number]] Abnormal Final result Please view results for these tests on the individual orders. MAGNESIUM Result Value Ref Range Magnesium 2.0 1.6 - 2.6 mg/dL Basic Metabolic Panel Result Value Ref Range Sodium 137 136 - 145 mmol/L Potassium 3.0 (L) 3.5 - 5.1 mmol/L Chloride 100 98 - 109 mmol/L CO2 27 20 - 29 mmol/L Anion Gap 10 7 - 16 mmol/L Calcium 9.0 8.4 - 10.4 mg/dL BUN 13 7 - 26 mg/dL Creatinine 0.73 0.55 - 1.02 mg/dL GFR, Estimated >60 >60 mL/min/1.73m2 GFR, Est If >60 >60 mL/min/1.73m2 Glucose 114 (H) 70 - 100 mg/dL Liver Panel(Hepatic Function Panel) Result Value Ref Range Alkaline Phosphatase 46 40 - 150 U/L Bilirubin, Total 0.3 0.2 - 1.2 mg/dL Bilirubin, Direct 0.1 0.0 - 0.5 mg/dL AST (SGOT) 14 10 - 40 U/L ALT (SGPT) 23 0 - 55 U/L Protein, Total 6.9 6.4 - 8.3 g/dL Albumin 3.3 (L) 3.5 - 5.0 g/dL INR/PROTIME Result Value Ref Range Protime 12.0 11.8 - 14.6 Seconds INR 0.9 0.9 - 1.1 Narrative Therapeutic range determined by protocol established by anticoagulation provider. Sedimentation Rate Result Value Ref Range Sedimentation Rate 7 0 - 20 mm/hr C Reactive Protein Result Value Ref Range C-Reactive Protein 0.4 0.0 - 0.7 mg/dL Complete Blood Count-W/Diff Result Value Ref Range WBC 15.9 (H) 3.5 - 10.5 x10(9)/L RBC 4.53 3.90 - 5.03 x10(12)/L Hemoglobin 14.1 12.0 - 15.5 g/dL HCT 42.3 34.9 - 44.5 % MCV 93.4 80.0 - 100.0 fL MCH 31.1 27.6 - 33.3 pg MCHC 33.3 31.5 - 35.2 g/dL RDW 13.2 11.9 - 15.5 % Platelets 390 150 - 450 x10(9)/L Automated NRBC 0 <=0 /100 WBC Neutrophil Absolute 11.8 (H) 1.7 - 7.0 10(9)/L Lymphocyte Absolute 2.9 1.0 - 4.8 10(9)/L Monocytes Absolute 1.0 (H) 0.2 - 0.9 10(9)/L Eosinophil Absolute 0.0 0.0 - 0.5 10(9)/L Basophil Absolute 0.0 0.0 - 0.3 10(9)/L Immature Gran % 0.9 (H) 0.0 - 0.5 % MAGNESIUM Result Value Ref Range Magnesium 1.8 1.6 - 2.6 mg/dL Complete Blood Count-W/Diff Narrative The following orders were created for panel order Complete Blood Count-W/Diff. Procedure Abnormality Status --------- ------ Complete Blood Count-W/Diff[[id number]] Abnormal Final result Please view results for these tests on the individual orders. Basic Metabolic Panel Result Value Ref Range Sodium 136 136 - 145 mmol/L Potassium 3.9 3.5 - 5.1 mmol/L Chloride 104 98 - 109 mmol/L CO2 23 20 - 29 mmol/L Anion Gap 9 7 - 16 mmol/L Calcium 8.3 (L) 8.4 - 10.4 mg/dL BUN 10 7 - 26 mg/dL Creatinine 0.62 0.55 - 1.02 mg/dL GFR, Estimated >60 >60 mL/min/1.73m2 GFR, Est If >60 >60 mL/min/1.73m2 Glucose 153 (H) 70 - 100 mg/dL INR/PROTIME Result Value Ref Range Protime 12.9 11.8 - 14.6 Seconds INR 1.0 0.9 - 1.1 Narrative Therapeutic range determined by protocol established by anticoagulation provider. Complete Blood Count-W/Diff Result Value Ref Range WBC 14.6 (H) 3.5 - 10.5 x10(9)/L RBC 4.14 3.90 - 5.03 x10(12)/L Hemoglobin 12.6 12.0 - 15.5 g/dL HCT 39.6 34.9 - 44.5 % MCV 95.7 80.0 - 100.0 fL MCH 30.4 27.6 - 33.3 pg MCHC 31.8 31.5 - 35.2 g/dL RDW 13.2 11.9 - 15.5 % Platelets 348 150 - 450 x10(9)/L Automated NRBC 0 <=0 /100 WBC Neutrophil Absolute 12.1 (H) 1.7 - 7.0 10(9)/L Lymphocyte Absolute 1.6 1.0 - 4.8 10(9)/L Monocytes Absolute 0.6 0.2 - 0.9 10(9)/L Eosinophil Absolute 0.0 0.0 - 0.5 10(9)/L Basophil Absolute 0.0 0.0 - 0.3 10(9)/L Immature Gran % 1.1 (H) 0.0 - 0.5 % Bedside Glucose Monitor Result Value Ref Range Glucose Whole Blood 118 70 - 180 mg/dL Assessment/Plan Idania Duarte is a 44 y.o. female with ulcerative colitis and HTN who presented as a direct admit from GI w/ ongoing pain and rectal bleeding refractory to OP oral steroid burst. UC flare Pt w/ hx of UC, had been controlled w/ Lialdi but in recent months has had worsneing frequency, urgency, pain and rectal bleeding, was started on prednisone burst recently w/o significant improvement in her symptoms, also failed xeljanz which was started out of desire to avoid infusions. Stool studies have been negative. Now improving with IV steroids. - continue IV methylpred 20mg Q8 - continue mesalamine for now - GI consulted, appreciate recs - trend CRP? HTN - hold OP HCTZ given ongoing bleeding and pain, resume as needed?? FEN: regular diet Prophy: lovenox - higher risk due to UC flare Code status: full Dispo: home 1-2 days Alejandro Ang MD [phone] Total time: 35 minutes, >50% of which was spent counseling and coordinating care HIC PRE PRESS TRADES WORKER Lucy Torres RN - 04/30/2019 6:58 PM CST ADMIT O: Admitted patient via ambulated per self from home to bed # [id number]. D: Patient is alert and oriented x 4; family present. See Admission Assessments. A: Discussed plan of care. See education record for admission education. Oriented to room. Call light in reach. Bed alarm: off R: Patient status: stable. Will monitor. Lucy Torres RN 6:58 PM 04/30/2019 HIC PRE PRESS TRADES WORKER documented in this encounter Procedure Notes Orion Robles MD - 05/01/2019 3:27 PM CST Patient Name: Idania Duarte Procedure Date: 05/01/2019 3:27 PM Date of [...] scope was passed under direct vision. The [id number] was introduced through the anus and advanced [...] daily - Rest of plan per GI Procedure Code(s): --- Professional --- 89973, Sigmoidoscopy, flexible; with biopsy, single or multiple G0500, Moderate sedation services provided by the same physician or other qualified health rn complex care performing a gastrointestinal endoscopic service that sedation supports, requiring the presence of an independent trained observer to assist in the monitoring of the patient's level of consciousness and physiological status; initial 15 minutes of intra-service time; patient age 5 years or older (additional time may be reported with 04034, as appropriate) Diagnosis Code(s): --- Professional --- K51.50, Left sided colitis without complications CPT copyright 2018 [employer]. All rights reserved. The codes documented in this report are preliminary and upon hot mill shearer review may be revised to meet current compliance requirements. Orion Robles, 05/01/2019 4:34:47 PM Number of Addenda: 0 Note Initiated On: 05/01/2019 3:27 PM Endoscopy Report HIC PRE PRESS TRADES WORKER documented in this encounter Consult Notes Orion Robles MD - 05/01/2019 4:29 PM CSTAssociated Order(s): CONSULT GASTROENTEROLOGY Images from the original note were not included. Gastroenterology Consultation Note Name: Idania Duarte : 1975 CSN: [id number] Date of Service: 05/01/2019 Consulting Provider: Orion Robles MD Reason for Consultation: Further evaluation of left sided UC. Chief Complaint: bloody diarrhea History of Present Illness: Idania Duarte is a 44 y.o. old female with a PMH substantial for left sided ulcerative colitis, IBS, remote melanoma s/p excision, HTN, and obesity who presented for worsening diarrhea symptoms. Per chart review: Inflammatory Bowel Disease History 1. Disease: UC 2. Age at diagnosis: 40 3. Extent: proctitis with more proximal spread recently to left sided disease on flex sig and CTE 4. Perianal involvement: no 5. Extraintestinal manifestations: none 6. Prior IBD treatment: ?a.Oral 5 ASA: Lialda, currently at 4.8g daily ?b. Topical 5 ASA: canasa, using intermittently right now ?c. Topical steroids: proctofoam - not using ?d. Corticosteroids: prednisone multi week course at diagnosis that induced aremission (2015); restarted on taper in January, but unable to taper off and now back on 40mg daily??for the last month? 7. Current therapy/date: Lialda 4.8g daily, cholestyramine 4g daily, prednisone 40mg daily, Canasa suppositories nightly 8. Recent imaging: CT enterography 02/06/19 - IMPRESSION: Areas of colonic wall thickening, mucosal and mural enhancement, adjacent lymph nodes and pericolonic fatty edema or inflammation in the descending colon, sigmoidcolon, and rectosigmoid. ?? Flex sig 02/05/19: - Mild (Tam 1) inflammation in the sigmoid colon, severe (tam 3) inflammation from anus to rectosigmoid colon, inflammation in descending and transverse colon - biopsies noted focal minimal colitis in the transverse colon, chronic active colitis in the colon,and chronic active colitis in the recto sigmoid colon ?? Prior surgery: no surgery? Patient reports that she has been intermittently in a flare since September of 2018. She reports she wason Lialda and Canasa but given lack of response was transitioned to tofacitinib. She took that untilone week prior and stopped due to poor response, and side effects of joint achiness. At time of consultation the patient reports that she has been taking Lialda 4.8 grams daily along with intermittent canasa as well as 40 milligrams oral prednisone daily. Patient reports having bowel movements up to 10 times a day in small quantities with all having someblood and 50 percent of each bowel movement being blood though small bowel movements. She reports urgency, tenesmus, intermittent fecal incontinence. She denies associated abdominal pain. She reports she has gained weight in the setting of prednisone. She denies fevers , chills , sweats, extra GI manifestations of IBD. She denies NSAID use, smoking, drugs and alcohol abuse. She denies sick contacts. Her outpatient provider subjective fecal calprotectin on April 25, 2019 that was elevated at 181 and her C diff was noted to be negative. Her hemoglobin has been relatively stable and though she has has been a CRP responder to pass it was not elevated at the same time of her fecal calprotectin. It is important to note that patient reports that she has only had 3 formed bowel movements on day of consultation which is significant improvement from days prior. Negative 10 point review of system otherwise. Past Medical History: Reviewed. Please see [facility] for complete details. Past Medical History: Diagnosis Date ??? BCC (basal cell carcinoma), leg 08/11/2011 ??? BP (high blood pressure) (HRC) ??? Chronic headaches 08/11/2011 ??? Clostridium difficile colitis 01/2012 ??? Concussion 08/11/2011 ??? HTN (hypertension) (HRC) 08/11/2011 ??? Hx of tonsillectomy 08/11/2011 ??? Irritable bowel syndrome 11/29/2002 ??? 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 Obesity (HRC) 08/11/2011 Past Surgical History: Reviewed. Please see [facility] for complete details. Past Surgical History: Procedure Laterality Date ??? CYST REMOVAL left wrist ??? LAP CHOLECYSTECTOMY 07/12/2016 ??? TONSILLECTOMY Medications: Reviewed. Please see [facility] for complete details. Medications prior to admission Medication Sig Dispense Refill ??? Calcium Carbonate Antacid 1000 MG Take by mouth. Reported on 08/14/2016 ??? cholestyramine (QUESTRAN) 4 GM/DOSE powder Take 4 g by mouth daily. Ok to increase to twice daily if needed. Separate at least 2 hours from other medications. (Patient not taking: Reported on 04/30/2019) 810 g 3 ??? dicyclomine (BENTYL) 20 MG tablet TAKE 1 TABLET BY MOUTH 4 TIMES DAILY NEEDED 360 Tablet 3 ??? mesalamine (CANASA) 1000 MG suppository Insert 1 Suppository rectally daily at bedtime. (Patientnot taking: Reported on 04/30/2019) 30 Suppository 11 ??? mesalamine (LIALDA) 1.2 g enteric coated tablet Take 4 tablets by mouth daily. 120 Tablet 0 ??? Multiple Vitamin (MULTI-VITAMIN OR) Take 1 tablet by mouth daily (every 24 hours). ??? norethindrone-eth estradiol (DASETTA ) 1-35 MG-MCG tablet Take 1 Tablet by mouth daily. Takes continuously 112 Tablet 3 ??? Phentermine HCl 37.5 MG capsule Take 1 Capsule by mouth daily. (Patient not taking: Reported on 04/30/2019) 90 Capsule 1 ??? predniSONE (DELTASONE) 10 MG tablet 4 tabs daily for 1 wk, 3 tabs daily for 1 wk, 2 tabs daily for 1 wk, 1.5 tabs daily for 1 wk, 1 tab daily for 1 wk, 1/2 tab daily for 1 wk 84 Tablet 0 ??? topiramate (TOPAMAX) 25 MG tablet Take 1 Tablet by mouth daily at bedtime. (Patient not taking: Reported on 04/30/2019) 90 Tablet 3 ??? triamterene-hydrochlorothiazide (MAXZIDE-25) 37.5-25 MG tablet TAKE 1 TABLET BY MOUTH DAILY. 90 Tablet 3 ??? XELJANZ 10 MG TABS Take 10 mg by mouth two times a day. Allergies: Reviewed. Please see [facility] for complete details. No Known Allergies Social History: Reviewed. Please see [facility] for complete details. Social History Socioeconomic History ??? Marital status: Single Spouse name: Not on file ??? Number of children: 0 ??? Years of education: Not on file ??? Highest education level: Not on file Occupational History ??? 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. 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 Family History: Reviewed. Please see [facility] for complete details. No known history of GI/liver diseaseor cancer. Family History Problem Relation Age of Onset [...] History ??? Retinal Detachment Negative Family History Review of Systems: A complete 10-point review of systems was obtained. Please see the HPI for pertinent positives and negatives. All other systems were reviewed and found to be negative. Physical Examination: General: Pleasant age appearing female in NAD. Vital Signs: Reviewed. Please see EPIC for completed details. BP 135/78 Pulse 98 Temp 37.1 ??C (98.7 ??F) (Oral) Resp 20 Ht 1.702 m (5' 7) Wt 82.6 kg (182 lb) SpO2 97% BMI 28.51 kg/m?? HEENT: NCAT, PERRL, EOMI, no rhinorrhea, no oropharyngeal exudates, no oral lesions, MMM Chest: CTA bilaterally without crackles or wheezes, no accessory muscle use. Cardiovascular: RRR without murmur, distal pulses intact bilaterally. Abdomen: Soft, BS+, Non-distended, Non-tender. Bowel no rebound : No suprapubic tenderness. Musculoskeletal: Moving all extremities without difficulty. Lymphatic: No LE edema bilaterally. Skin: No jaundice or skin lesions. Neurological: AOx3. Psych: Normal affect and mood with appropriate eye contact. Labs: Reviewed. Please see [facility] and [facility] for complete details. Imaging: I personally reviewed the imaging pertinent to today's visit. Please see [facility] and HPI for complete details. Endoscopy: Reviewed. Please see [facility] and [facility] for complete details. Impression/Recommendations: Mrs. Duarte is a 44 year old woman with with a PMH substantial for left sided ulcerative colitis, IBS, remote melanoma s/p excision, HTN, and obesity who presented for worsening diarrhea symptoms. Patient presented with concerning symptoms for ulcerative colitis flare and in particular proctitis symptoms. Given lack of response to Xeljanz and negative infectious studies completed a flexible sigmoidoscopy to confirm suspected severe proctitis and take biopsies to rule out overlying infectious etiology. Flexible sigmoidoscopy patient is noted to Tam 3 severe proctitis with endoscopically quiescent sigmoid mucosa. No ramón ulceration to suggest HSV or CMV the overlying ulcerative colitis but biopsies obtained. It is noted that the sigmoid does not appear to have active disease. For now will continue IV steroids with assessment of response on day 3 in addition to topical therapy (Canasa). May consider transition to topical tacrolimus in coming days. If unresponsive to steroid therapy, may consider salvage infliximab. Recommendations: -crp and fecal calprotectin -strict documentation of bowel frequency, blood quantity -flex sigmoidoscopy -low residue diet -20 mg IV methylprednisolone TID -Okay to continue Lialda and Canasa for now -May consider tacrolimus for refractory proctitis instead of canasa -f/u path -pharmacologic DVT prophylaxis Thank for allowing me the opportunity to be involved in the care of Idania Duarte. Please feel free to contact me with any questions and/or concerns. Orion Robles MD Department of Gastroenterology [facility] HIC PRE PRESS TRADES WORKER documented in this encounter OR Notes H&P - Sergio Potter MD - 04/30/2019 9:40 PM CST HISTORY AND PHYSICAL Admit Date: 04/30/2019 Primary provider: Sheeba Castillo, [employer]ER MACHINE, [employer] Assessment and Plan Idania Duarte is a 44 y.o. female with PMHx significant for ulcerative colitis and HTN who presents as a direct admit from GI w/ ongoing pain and rectal bleeding refractory to OP oral steroid burst, admitted to medicine for further E&M and GI consultation. ## Abdominal pain, hematochezia, bowel frequency and urgency ## Likely flare of UC - Pt w/ hx of UC, had been controlled w/ Lialdi but in recent months has had worsneing frequency, urgency, pain and rectal bleeding, was started on prednisone burst recently w/o significant improvementin her symptoms, also failed xeljanz which was started out of desire to avoid infusions. Pt now admit teresa from GI clinic given ongoing bleeding and pain, eval for IV steroids and potential rescue remicade per OP GI note. -- Admit to med/surg -- IV methylpred 20mg Q8 per GI note, also cont mesalamine for now, appreciate GI recs -- IVFs -- Labs ordered including CRP/ESR -- GI consult in AM, appreciate recs Chronic Medical Issues # HTN - hold OP HCTZ given ongoing bleeding and pain, resume as needed CODE: full code Diet/IVF: regular diet, mIVfs overnight DVT ppx: SCDs Disposition/Admission Status: inpatient admit given need for IV meds, monitoring of labs and potential initiation of IV medications, dispo likely hoome in 2-3 days if responds Chief Complaint: Abdominal pain, rectal bleeding HPI: Idania Duarte is a 44 y.o. female with PMHx significant for ulcerative colitis and HTN who presents as a direct admit from GI w/ ongoing pain and rectal bleeding refractory to OP oral steroid burst, admitted to medicine for further E&M and GI consultation. - Pt w/ hx of UC, had been controlled w/ Lialdi but in recent months has had worsneing frequency, urgency, pain and rectal bleeding, was started on prednisone burst recently w/o significant improvementin her symptoms, also failed xeljanz which was started out of desire to avoid infusions. Pt now admit teresa from GI clinic given ongoing bleeding and pain, eval for IV steroids and potential rescue remicade per OP GI note. Pt denies fevers or chills, no nausea or vomiting, although PO intake somewhat poor. No willing to do infusions if will get her UC under control. Review of Systems A comprehensive review of systems was negative except for: as above Past Medical History: Diagnosis Date ??? BCC (basal cell carcinoma), leg 08/11/2011 ??? BP (high blood pressure) ([facility]) ??? Chronic headaches 08/11/2011 ??? Clostridium difficile colitis 01/2012 ??? Concussion 08/11/2011 ??? HTN (hypertension) ([facility]) 08/11/2011 ??? Hx of tonsillectomy 08/11/2011 ??? Irritable bowel syndrome 11/29/2002 ??? 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 Obesity ([facility]) 08/11/2011 Past Surgical History: Procedure Laterality Date ??? CYST REMOVAL left wrist ??? LAP CHOLECYSTECTOMY 07/12/2016 ??? TONSILLECTOMY Social History Socioeconomic History ??? Marital status: Single Spouse name: Not on file ??? Number of children: 0 ??? Years of education: Not on file ??? Highest education level: Not on file Occupational History ??? 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 Family History Problem Relation Age of Onset [...] History ??? Retinal Detachment Negative Family History -- Family hx reviewed and not pertinent to current presentation No Known Allergies Medications prior to admission Medication Sig Dispense Refill ??? Calcium Carbonate Antacid 1000 MG Take by mouth. Reported on 08/14/2016 ??? cholestyramine (QUESTRAN) 4 GM/DOSE powder Take 4 g by mouth daily. Ok to increase to twice daily if needed. Separate at least 2 hours from other medications. (Patient not taking: Reported on 04/30/2019) 810 g 3 ??? dicyclomine (BENTYL) 20 MG tablet TAKE 1 TABLET BY MOUTH 4 TIMES DAILY NEEDED 360 Tablet 3 ??? mesalamine (CANASA) 1000 MG suppository Insert 1 Suppository rectally daily at bedtime. (Patientnot taking: Reported on 04/30/2019) 30 Suppository 11 ??? mesalamine (LIALDA) 1.2 g enteric coated tablet Take 4 tablets by mouth daily. 120 Tablet 0 ??? Multiple Vitamin (MULTI-VITAMIN OR) Take 1 tablet by mouth daily (every 24 hours). ??? norethindrone-eth estradiol (DASETTA ) 1-35 MG-MCG tablet Take 1 Tablet by mouth daily. Takes continuously 112 Tablet 3 ??? Phentermine HCl 37.5 MG capsule Take 1 Capsule by mouth daily. (Patient not taking: Reported on 04/30/2019) 90 Capsule 1 ??? predniSONE (DELTASONE) 10 MG tablet 4 tabs daily for 1 wk, 3 tabs daily for 1 wk, 2 tabs daily for 1 wk, 1.5 tabs daily for 1 wk, 1 tab daily for 1 wk, 1/2 tab daily for 1 wk 84 Tablet 0 ??? topiramate (TOPAMAX) 25 MG tablet Take 1 Tablet by mouth daily at bedtime. (Patient not taking: Reported on 04/30/2019) 90 Tablet 3 ??? triamterene-hydrochlorothiazide (MAXZIDE-25) 37.5-25 MG tablet TAKE 1 TABLET BY MOUTH DAILY. 90 Tablet 3 ??? XELJANZ 10 MG TABS Take 10 mg by mouth two times a day. OBJECTIVE: Vitals: BP (!) 155/83 (BP Location: Right Arm, BP Cuff Size: Regular) Pulse (!) 101 Temp 37.2 ??C (99 ??F) (Oral) Resp 16 Ht 1.702 m (5' 7) Wt 82.6 kg (182 lb) SpO2 96% BMI 28.51 kg/m?? General: laying in bed, normally conversant, NAD HEENT: head nc, at, ears atraumatic, EOMI, sclera non-icteric, oral mucosa moist, CV: RRR Resp: breathing comfortably on RA, CTAB, no wheezes or rhonchi Abdomen: soft, non-distended, non-tender, BS+ Extremities: warm, well perfused, distal pulses palpable, no edema Neuro: alert and oriented x3, CNII-XII grossly in tact Skin: no lesions on gross examination Psych: affect appropriate Imaging and lab data reviewed in Epic. ECG: NA Imaging: NA Labs: - Pending at time of note being signed Total Time: 72 minutes; >50% spent counseling patient/family and coordinating care. Will MD [facility] [phone] HIC PRE PRESS TRADES WORKER documented in this encounter Plan of Treatment Upcoming Encounters Date Type Specialty Care Team Description 05/05/2022 Appointment Chemo Therapy/Infusion Services 09/15/2022 Telemedicine Gastroenterology Eusebio Haines MD [address] [place] [address] (Wo rk) documented as of this encounter Procedures Procedure Name Priority Date/Time Associated Comments Diagnosis POTASSIUM Routine 05/05/2019 6:23 Results for this AM GRAPHIC PRE PRESS TRADES WORKER procedure are i n the results section. C-REACTIVE PROTEIN Routine 05/04/2019 12:35 Resul ts for this PM GRAPHIC PRE PRESS TRADES WORKER procedure are i n the results section. POTASSIUM Specified Time 05/04/2019 12:35 Results f or this PM GRAPHIC PRE PRESS TRADES WORKER procedure are i n the results section. BEDSIDE GLUCOSE Routine 05/04/2019 12:03 Results for this MONITOR POCT PM GRAPHIC PRE PRESS TRADES WORKER procedure are i n the results section. BEDSIDE GLUCOSE Routine 05/04/2019 7:33 Results f or this MONITOR POCT AM GRAPHIC PRE PRESS TRADES WORKER procedure are i n the results section. POTASSIUM Routine 05/04/2019 6:37 Results for this AM GRAPHIC PRE PRESS TRADES WORKER procedure are i n the results section. BEDSIDE GLUCOSE Routine 05/03/2019 9:25 Results f or this MONITOR POCT PM GRAPHIC PRE PRESS TRADES WORKER procedure are i n the results section. BEDSIDE GLUCOSE Routine 05/03/2019 6:19 Results f or this MONITOR POCT PM GRAPHIC PRE PRESS TRADES WORKER procedure are i n the results section. BEDSIDE GLUCOSE Routine 05/03/2019 12:10 Results for this MONITOR POCT PM GRAPHIC PRE PRESS TRADES WORKER procedure are i n the results section. CREATININE / GFR Routine 05/03/2019 6:19 Results for this AM GRAPHIC PRE PRESS TRADES WORKER procedure are i n the results section. MAGNESIUM Routine 05/03/2019 6:19 Results for this AM GRAPHIC PRE PRESS TRADES WORKER procedure are i n the results section. POTASSIUM Routine 05/03/2019 6:19 Results for this AM GRAPHIC PRE PRESS TRADES WORKER procedure are i n the results section. POTASSIUM Specified Time 05/02/2019 9:13 Results fo r this PM GRAPHIC PRE PRESS TRADES WORKER procedure are i n the results section. BEDSIDE GLUCOSE Routine 05/02/2019 9:11 Results f or this MONITOR POCT PM GRAPHIC PRE PRESS TRADES WORKER procedure are i n the results section. BEDSIDE GLUCOSE Routine 05/02/2019 6:04 Results f or this MONITOR POCT PM GRAPHIC PRE PRESS TRADES WORKER procedure are i n the results section. BEDSIDE GLUCOSE Routine 05/02/2019 12:04 Results for this MONITOR POCT PM GRAPHIC PRE PRESS TRADES WORKER procedure are i n the results section. CREATININE / GFR Routine 05/02/2019 6:15 Results for this AM GRAPHIC PRE PRESS TRADES WORKER procedure are i n the results section. C-REACTIVE PROTEIN Add-On 05/02/2019 6:15 Result s for this AM GRAPHIC PRE PRESS TRADES WORKER procedure are i n the results section. POTASSIUM Add-On 05/02/2019 6:15 Results for this AM GRAPHIC PRE PRESS TRADES WORKER procedure are i n the results section. POTASSIUM Specified Time 05/02/2019 2:51 Results fo r this AM GRAPHIC PRE PRESS TRADES WORKER procedure are i n the results section. BEDSIDE GLUCOSE Routine 05/01/2019 9:37 Results f or this MONITOR POCT PM GRAPHIC PRE PRESS TRADES WORKER procedure are i n the results section. FECAL CALPROTECTIN Routine 05/01/2019 9:24 Result s for this PM GRAPHIC PRE PRESS TRADES WORKER procedure are i n the results section. BEDSIDE GLUCOSE Routine 05/01/2019 5:27 Results f or this MONITOR POCT PM GRAPHIC PRE PRESS TRADES WORKER procedure are i n the results section. SURGICAL PATHOLOGY, Routine 05/01/2019 4:16 Resul ts for this GI PM GRAPHIC PRE PRESS TRADES WORKER procedure are i n the results section. ENDOSCOPY, SIGMOID Routine 05/01/2019 3:27 Result s for this PM GRAPHIC [employer] PRESS TRADES WORKER procedure are i n the results section. POTASSIUM Routine 05/01/2019 2:55 Results for this PM GRAPHIC PRE PRESS TRADES WORKER procedure are i n the results section. BEDSIDE GLUCOSE Routine 05/01/2019 12:41 Results for this MONITOR POCT PM GRAPHIC PRE PRESS TRADES WORKER procedure are i n the results section. C-REACTIVE PROTEIN Routine 05/01/2019 9:35 Result s for this AM GRAPHIC PRE PRESS TRADES WORKER procedure are i n the results section. BEDSIDE GLUCOSE Routine 05/01/2019 7:32 Results f or this MONITOR POCT AM GRAPHIC PRE PRESS TRADES WORKER procedure are i n the results section. CBC AND DIFFERENTIAL Routine 05/01/2019 6:32 Resu lts for this PANEL AM GRAPHIC PRE PRESS TRADES WORKER procedure are i n the results section. COMPLETE BLOOD Routine 05/01/2019 6:32 Results fo r this COUNT-W/DIFF AM GRAPHIC PRE PRESS TRADES WORKER procedure are i n the results section. BASIC METABOLIC Routine 05/01/2019 6:32 Results f or this PANEL AM GRAPHIC PRE PRESS TRADES WORKER procedure are i n the results section. MAGNESIUM Routine 05/01/2019 6:32 Results for this AM GRAPHIC PRE PRESS TRADES WORKER procedure are i n the results section. INR/PROTIME Routine 05/01/2019 6:32 Results for this AM GRAPHIC PRE PRESS TRADES WORKER procedure are i n the results section. CBC AND DIFFERENTIAL STAT 04/30/2019 7:46 Resu lts for this PANEL PM GRAPHIC PRE PRESS TRADES WORKER procedure are i n the results section. COMPLETE BLOOD STAT 04/30/2019 7:46 Results fo r this COUNT-W/DIFF PM GRAPHIC PRE PRESS TRADES WORKER procedure are i n the results section. LIVER PANEL(HEPATIC Routine 04/30/2019 7:46 Resul ts for this FUNCTION PANEL) PM GRAPHIC PRE PRESS TRADES WORKER procedure ar e in the results section. BASIC METABOLIC STAT 04/30/2019 7:46 Results f or this PANEL PM GRAPHIC PRE PRESS TRADES WORKER procedure are i n the results section. MAGNESIUM STAT 04/30/2019 7:46 Results for this PM GRAPHIC PRE PRESS TRADES WORKER procedure are i n the results section. C-REACTIVE PROTEIN Routine 04/30/2019 7:46 Result s for this PM GRAPHIC PRE PRESS TRADES WORKER procedure are i n the results section. INR/PROTIME STAT 04/30/2019 7:46 Results for this PM GRAPHIC PRE PRESS TRADES WORKER procedure are i n the results section. ESR Routine 04/30/2019 7:46 Results for this PM GRAPHIC PRE PRESS TRADES WORKER procedure are i n the results section. documented in this encounter Results Potassium (05/05/2019 6:23 AM GRAPHIC PRE PRESS TRADES WORKER) P athologist Signature Potassium 3.6 3.5 - 5.1 05/05/2019 [facility] mmol/L 6:49 AM GRAPHIC PRE PRESS TRADES WORKER LABORATORY Specimen Anatomical Collection Method / Collection Time Recei peña Time (Source) Location / Volume Laterality Blood Venipuncture / 05/05/2019 6:23 05/05/2019 6:34 Unknown AM GRAPHIC PRE PRESS TRADES WORKER AM GRAPHIC PRE PRESS TRADES WORKER Sergio Potter MD LAB_1 Performing Organization Address City/State/ZIP Code Phon e Number [facility] [address] [place] [address] Potassium (05/04/2019 12:35 PM GRAPHIC PRE PRESS TRADES WORKER) P athologist Signature Potassium 4.2 3.5 - 5.1 05/04/2019 [facility] mmol/L 12:48 PM GRAPHIC PRE PRESS TRADES WORKER LABORATORY Specimen Anatomical Collection Method / Collection Time Recei peña Time (Source) Location / Volume Laterality Blood Venipuncture 05/04/2019 12:35 05/04/2019 [place] / Unknown PM GRAPHIC PRE PRESS TRADES WORKER 12:37 PM GRAPHIC PRE PRESS TRADES WORKER Sunita Ruelas MD LAB_1 Performing Organization Address [facility] Phon e Number [facility] [address] [place] [address] C Reactive Protein (05/04/2019 12:35 PM GRAPHIC PRE PRESS TRADES WORKER) P athologist Signature C-Reactive 0.2 0.0 - 0.7 05/04/2019 [facility] Protein mg/dL 12:55 PM GRAPHIC PRE PRESS TRADES WORKER LABORATORY Specimen Anatomical Collection Method / Collection Time Recei peña Time (Source) Location / Volume Laterality Blood Venipuncture 05/04/2019 12:35 05/04/2019 [place]fly / Unknown PM GRAPHIC PRE PRESS TRADES WORKER 12:37 PM GRAPHIC PRE PRESS TRADES WORKER Eileen Bernabe APRN, CNP LAB_1 Performing Organization Address [facility] Phon e Number [facility] [address] [place] [address] Bedside Glucose Monitor (05/04/2019 12:03 PM GRAPHIC PRE PRESS TRADES WORKER) P athologist Signature Glucose, Whole 85 70 - 180 05/04/2019 [facility] Blood mg/dL 12:15 PM GRAPHIC PRE PRESS TRADES WORKER LABORATORY Specimen Anatomical Collection Method Collection Time Receive d Time (Source) Location / / Volume Laterality Blood 05/04/2019 12:03 05/04/2019 PM GRAPHIC PRE PRESS TRADES WORKER 12:15 PM GRAPHIC PRE PRESS TRADES WORKER Sunita Ruelas MD LAB_1 Performing Organization Address [facility] Phon e Number [facility] [address] [place] [address] Bedside Glucose Monitor (05/04/2019 7:33 AM GRAPHIC PRE PRESS TRADES WORKER) P athologist Signature Glucose, Whole 83 70 - 180 05/04/2019 [facility] Blood mg/dL 8:05 AM GRAPHIC PRE PRESS TRADES WORKER LABORATORY Specimen Anatomical Collection Method Collection Time Receive d Time (Source) Location / / Volume Laterality Blood 05/04/2019 7:33 AM 9 8:05 GRAPHIC PRE PRESS TRADES WORKER AM GRAPHIC PRE PRESS TRADES WORKER Sunita Ruelas MD LAB_1 Performing Organization Address [facility] Phon e Number [facility] [address] [place] [address] Potassium (05/04/2019 6:37 AM GRAPHIC PRE PRESS TRADES WORKER) athologist Signature Potassium 3.6 3.5 - 5.1 05/04/2019 [facility] mmol/L 6:59 AM GRAPHIC PRE PRESS TRADES WORKER LABORATORY Specimen Anatomical Collection Method / Collection Time Recei peña Time (Source) Location / Volume Laterality Blood Venipuncture / 05/04/2019 6:37 05/04/2019 6:41 Unknown AM GRAPHIC PRE PRESS TRADES WORKER AM GRAPHIC PRE PRESS TRADES WORKER Sergio Potter MD LAB_1 Performing Organization Address City/[facility]/ZIP [facility] Phon e Number [facility] [address] [place] [address] Bedside Glucose Monitor (05/03/2019 9:25 PM GRAPHIC PRE PRESS TRADES WORKER) athologist Signature Glucose, Whole 110 70 - 180 05/03/2019 [facility] Blood mg/dL 9:30 PM GRAPHIC PRE PRESS TRADES WORKER LABORATORY Specimen Anatomical Collection Method Collection Time Receive d Time (Source) Location / / Volume Laterality Blood 05/03/2019 9:25 PM 9 9:30 GRAPHIC PRE PRESS TRADES WORKER PM GRAPHIC PRE PRESS TRADES WORKER Sunita Ruelas MD LAB_1 Performing Organization Address City/[facility] Code Phon e Number [facility] [address] [place] [address] Bedside Glucose Monitor (05/03/2019 6:19 PM GRAPHIC PRE PRESS TRADES WORKER) athologist Signature Glucose, Whole 133 70 - 180 05/03/2019 [facility] Blood mg/dL 6:25 PM GRAPHIC PRE PRESS TRADES WORKER LABORATORY Specimen Anatomical Collection Method Collection Time Receive d Time (Source) Location / / Volume Laterality Blood 05/03/2019 6:19 PM 9 6:25 GRAPHIC PRE PRESS TRADES WORKER PM GRAPHIC PRE PRESS TRADES WORKER Sunita Ruelas MD LAB_1 Performing Organization Address City/[facility]/ZIP [facility] Phon e Number [facility] [address] [place] [address] Bedside Glucose Monitor (05/03/2019 12:10 PM GRAPHIC PRE PRESS TRADES WORKER) athologist Signature Glucose, Whole 129 70 - 180 05/03/2019 [facility] Blood mg/dL 12:30 PM GRAPHIC PRE PRESS TRADES WORKER LABORATORY Specimen Anatomical Collection Method Collection Time Receive d Time (Source) Location / / Volume Laterality Blood 05/03/2019 12:10 05/03/2019 PM GRAPHIC PRE PRESS TRADES WORKER 12:30 PM GRAPHIC PRE PRESS TRADES WORKER Sunita Ruelas MD LAB_1 Performing Organization Address [facility] Phon e Number [facility] [address] [place] [address] Creatinine / GFR (05/03/2019 6:19 AM GRAPHIC PRE PRESS TRADES WORKER) athologist Signature Creatinine 0.67 0.55 - 05/03/2019 [facility] 1.02 mg/dL 7:07 AM GRAPHIC PRE PRESS TRADES WORKER LABORATORY GFR, Estimated >60 >60 05/03/2019 [facility] mL/min/1.7 7:07 AM GRAPHIC PRE PRESS TRADES WORKER LABORATORY 3m2 GFR, Est If >60 >60 05/03/2019 [facility] mL/min/1.7 7:07 AM GRAPHIC PRE PRESS TRADES WORKER LABORATORY [place] 3m2 Specimen Anatomical Collection Method / Collection Time Recei peña Time (Source) Location / Volume Laterality Blood Venipuncture / 05/03/2019 6:19 05/03/2019 6:32 Unknown AM GRAPHIC PRE PRESS TRADES WORKER AM GRAPHIC PRE PRESS TRADES WORKER Sergio Potter MD LAB_1 Performing Organization Address [facility] Phon e Number [facility] [address] [place] [address] Potassium (05/03/2019 6:19 AM GRAPHIC PRE PRESS TRADES WORKER) athologist Signature Potassium 4.7 3.5 - 5.1 05/03/2019 [facility] mmol/L 7:07 AM GRAPHIC PRE PRESS TRADES WORKER LABORATORY Specimen Anatomical Collection Method / Collection Time Recei peña Time (Source) Location / Volume Laterality Blood Venipuncture / 05/03/2019 6:19 05/03/2019 6:32 Unknown AM GRAPHIC PRE PRESS TRADES WORKER AM GRAPHIC PRE PRESS TRADES WORKER Sergio Potter MD LAB_1 Performing Organization Address [facility] Phon e Number [facility] [address] [place] [address] Magnesium (05/03/2019 6:19 AM GRAPHIC PRE PRESS TRADES WORKER) athologist Signature Magnesium 2.2 1.6 - 2.6 05/03/2019 [facility] mg/dL 7:07 AM GRAPHIC PRE PRESS TRADES WORKER LABORATORY Specimen Anatomical Collection Method / Collection Time Recei peña Time (Source) Location / Volume Laterality Blood Venipuncture / 05/03/2019 6:19 05/03/2019 6:32 Unknown AM GRAPHIC PRE PRESS TRADES WORKER AM GRAPHIC PRE PRESS TRADES WORKER Alejandro Ang MD LAB_1 Performing Organization Address City/[facility]/ZIP [facility] Phon e Number [facility] [address] [place] [address] Potassium (05/02/2019 9:13 PM GRAPHIC PRE PRESS TRADES WORKER) athologist Signature Potassium 4.2 3.5 - 5.1 05/02/2019 [facility] mmol/L 9:31 PM GRAPHIC PRE PRESS TRADES WORKER LABORATORY Specimen Anatomical Collection Method / Collection Time Recei peña Time (Source) Location / Volume Laterality Blood Venipuncture / 05/02/2019 9:13 05/02/2019 9:18 Unknown PM GRAPHIC PRE PRESS TRADES WORKER PM GRAPHIC PRE PRESS TRADES WORKER Alejandro Ang MD LAB_1 Performing Organization Address City/[facility] Phon e Number [facility] [address] [place] [address] (ABNORMAL) Bedside Glucose Monitor (05/02/2019 9:11 PM GRAPHIC PRE PRESS TRADES WORKER) athologist Signature Glucose, Whole 183 (H) 70 - 180 05/02/2019 [facility] Blood mg/dL 9:15 PM GRAPHIC PRE PRESS TRADES WORKER LABORATORY Specimen Anatomical Collection Method Collection Time Receive d Time (Source) Location / / Volume Laterality Blood 05/02/2019 9:11 PM 9 9:15 GRAPHIC PRE PRESS TRADES WORKER PM GRAPHIC PRE PRESS TRADES WORKER Alejadnro Ang MD LAB_1 Performing Organization Address City/[facility] Phon e Number [facility] LABORATORY [address] [place] [address] Bedside Glucose Monitor (05/02/2019 6:04 PM GRAPHIC PRE PRESS TRADES WORKER) athologist Signature Glucose, Whole 128 70 - 180 05/02/2019 [facility] Blood mg/dL 6:10 PM GRAPHIC PRE PRESS TRADES WORKER LABORATORY Specimen Anatomical Collection Method Collection Time Receive d Time (Source) Location / / Volume Laterality Blood 05/02/2019 6:04 PM 9 6:10 GRAPHIC PRE PRESS TRADES WORKER PM GRAPHIC PRE PRESS TRADES WORKER Alejandro Ang MD LAB_1 Performing Organization Address City/[facility] Phon e Number [facility]OR[facility]ORY [address] [place] [address] Bedside Glucose Monitor (05/02/2019 12:04 PM GRAPHIC PRE PRESS TRADES WORKER) athologist Signature Glucose, Whole 117 70 - 180 05/02/2019 [facility] Blood mg/dL 12:10 PM GRAPHIC PRE PRESS TRADES WORKER LABORATORY Specimen Anatomical Collection Method Collection Time Receive d Time (Source) Location / / Volume Laterality Blood 05/02/2019 12:04 05/02/2019 PM GRAPHIC PRE PRESS TRADES WORKER 12:10 PM GRAPHIC PRE PRESS TRADES WORKER Alejandro Ang MD LAB_1 Performing Organization Address [facility] Phon e Number [facility]OR[facility]ORY [address] [place] [address] Potassium (05/02/2019 6:15 AM GRAPHIC PRE PRESS TRADES WORKER) P athologist Signature Potassium 3.9 3.5 - 5.1 05/02/2019 [facility] mmol/L 3:53 PM GRAPHIC PRE PRESS TRADES WORKER LABORATORY Specimen Anatomical Collection Method / Collection Time Recei peña Time (Source) Location / Volume Laterality Blood Venipuncture / 05/02/2019 6:15 05/02/2019 6:27 Unknown AM GRAPHIC PRE PRESS TRADES WORKER AM GRAPHIC PRE PRESS TRADES WORKER Alejandro Ang MD LAB_1 Performing Organization Address [facility] Phon e Number [facility] [address] [place] [address] C Reactive Protein (05/02/2019 6:15 AM GRAPHIC PRE PRESS TRADES WORKER) P athologist Signature C-Reactive 0.3 0.0 - 0.7 05/02/2019 [facility] Protein mg/dL 7:58 AM GRAPHIC PRE PRESS TRADES WORKER LABORATORY Specimen Anatomical Collection Method / Collection Time Recei peña Time (Source) Location / Volume Laterality Blood Venipuncture / 05/02/2019 6:15 05/02/2019 6:27 Unknown AM GRAPHIC PRE PRESS TRADES WORKER AM GRAPHIC PRE PRESS TRADES WORKER Alejandro Ang MD LAB_1 Performing Organization Address [facility] Phon e Number [facility] [address] [place] [address] Creatinine / GFR (05/02/2019 6:15 AM GRAPHIC PRE PRESS TRADES WORKER) P athologist Signature Creatinine 0.57 0.55 - 05/02/2019 [facility] 1.02 mg/dL 6:55 AM GRAPHIC PRE PRESS TRADES WORKER LABORATORY GFR, Estimated >60 >60 05/02/2019 [facility] mL/min/1.7 6:55 AM GRAPHIC PRE PRESS TRADES WORKER LABORATORY 3m2 GFR, Est If >60 >60 05/02/2019 [facility] mL/min/1.7 6:55 AM GRAPHIC PRE PRESS TRADES WORKER LABORATORY [place] 3m2 Specimen Anatomical Collection Method / Collection Time Recei peña Time (Source) Location / Volume Laterality Blood Venipuncture / 05/02/2019 6:15 05/02/2019 6:27 Unknown AM GRAPHIC PRE PRESS TRADES WORKER AM GRAPHIC PRE PRESS TRADES WORKER Sergio Potter MD LAB_1 Performing Organization Address [facility] Phon e Number [facility] [address] [place] [address] Potassium (05/02/2019 2:51 AM GRAPHIC PRE PRESS TRADES WORKER) athologist Signature Potassium 3.9 3.5 - 5.1 05/02/2019 [facility] mmol/L 3:10 AM GRAPHIC PRE PRESS TRADES WORKER LABORATORY Specimen Anatomical Collection Method / Collection Time Recei peña Time (Source) Location / Volume Laterality Blood Venipuncture / 05/02/2019 2:51 05/02/2019 2:56 Unknown AM GRAPHIC PRE PRESS TRADES WORKER AM GRAPHIC PRE PRESS TRADES WORKER Alejandro Ang MD LAB_1 Performing Organization Address [facility] Phon e Number [facility] [address] [place] [address] Bedside Glucose Monitor (05/01/2019 9:37 PM GRAPHIC PRE PRESS TRADES WORKER) athologist Signature Glucose, Whole 169 70 - 180 05/01/2019 [facility] Blood mg/dL 9:40 PM GRAPHIC PRE PRESS TRADES WORKER LABORATORY Specimen Anatomical Collection Method Collection Time Receive d Time (Source) Location / / Volume Laterality Blood 05/01/2019 9:37 PM 9 9:40 GRAPHIC PRE PRESS TRADES WORKER PM GRAPHIC PRE PRESS TRADES WORKER Alejandro Ang MD LAB_1 Performing Organization Address [facility] Phon e Number [facility] [address] [place] [address] (ABNORMAL) Calprotectin Fecal (05/01/2019 9:24 PM GRAPHIC PRE PRESS TRADES WORKER) [facility] Method Time Signature Fecal 691 (H) <=50 ug/g 05/04/2019 [facility] Calprotectin 11:55 PM GRAPHIC PRE PRESS TRADES WORKER LABORATORIES Comment: Fecal Calprotectin is an indicator [...] ??121 ug/g or greater: Abnormal Performed by [facility], [address] [place] [address] [email or web address], Romulo Pritchett MD, Lab. Director Specimen Anatomical Collection Method Collection Time Receive d Time (Source) Location / / Volume Laterality Stool 05/01/2019 9:24 PM 9 9:28 GRAPHIC PRE PRESS TRADES WORKER PM GRAPHIC PRE PRESS TRADES WORKER Orion Robles MD LAB_1 Performing Organization Address [facility]/ZIP [facility] Phon e Number [facility] [address] [place], [place] [id number] (ABNORMAL) Bedside Glucose Monitor (05/01/2019 5:27 PM GRAPHIC PRE PRESS TRADES WORKER) athologist Signature Glucose, Whole 193 (H) 70 - 180 05/01/2019 [facility] Blood mg/dL 5:30 PM GRAPHIC PRE PRESS TRADES WORKER LABORATORY Specimen Anatomical Collection Method Collection Time Receive d Time (Source) Location / / Volume Laterality Blood 05/01/2019 5:27 PM 9 5:30 GRAPHIC PRE PRESS TRADES WORKER PM GRAPHIC PRE PRESS TRADES WORKER Alejandro nAg MD LAB_1 Performing Organization Address City/[facility] Phon e Number [facility] [address] [place] [address] Surgical Path - GI (05/01/2019 4:16 PM GRAPHIC PRE PRESS TRADES WORKER) Component Value Ref Test Analysis Performed At Patholo gist Range Method Time Signature Case Report Surgical Pathology ?Case: [id number] ? 05/02/2019 [facility] Authorizing Provider: ??Orion Robles MD ? Collected: ? 05/01/2019 04:16 PM ? 4:22 PM GRAPHIC PRE PRESS TRADES WORKER LABORA TORY Ordering Location: ? [facility] General ? Received: ?05/01/2019 04:41 PM ? Medicine ? Pathologist: ? Miguelangel Bautista MD ? Specimens: ?? A) - Colon, si gmoid ? B) - [place] n, rectum ? FINAL A. Colon, sigmoid, biopsy: 05/02/2019 [facility] Electronically DIAGNOSIS ?? No diagnostic abnormality 4:22 PM GRAPHIC PRE PRESS TRADES WORKER LABORATORY signed by Miguelangel Bautista MD on B. Colon, rectum, biopsy: 05/02/2019 at ?? Chronic active colitis with ulceration 4:22 PM ?? Negative CMV and HSV immunostains ?? Negative for dysplasia Gross A. The specimen is received in formalin and labeled with the patient's name and Colon, sigmoid.?? The specimen consists of 2 dawn-white irregular soft tissue fragments, aggregating in 0.8 x 0.4 x 0.2 c [facility] Description m. The specimen is filtered and entirely submitted in one cassette. 4:22 PM GRAPHIC PRE PRESS TRADES WORKER LABORATORY B. The specimen is received in formalin and labeled with the patient's name and Colon, rectum.?? The specimen consists of multiple dawn-white irregular soft tissue fragments, aggregating 1 x 1 x 0.2 cm . The specimen is filtered and entirely submitted in one bryan sette. SH Clinical Hx Ulcerative Colitis 05/02/[address] Information 4:22 PM GRAPHIC PRE PRESS TRADES WORKER LABORATORY Microscopic Microscopic 05/02/2019 [facility] Description examination is 4:22 PM GRAPHIC PRE PRESS TRADES WORKER LABORATORY performed. Embedded 05/02/2019 [facility] Images 4:22 PM GRAPHIC PRE PRESS TRADES WORKER LABORATORY Specimen Anatomical Collection Method Collection Time Receive d Time (Source) Location / / Volume Laterality Tissue COLON STRUCTURE / 05/01/2019 4:16 PM 12/2018 4:41 Unknown GRAPHIC PRE PRESS TRADES WORKER PM GRAPHIC PRE PRESS TRADES WORKER Tissue specimen COLON STRUCTURE / 05/01/2019 4:16 PM 1 07/01/2018 4:41 (specimen) Unknown GRAPHIC PRE PRESS TRADES WORKER PM GRAPHIC PRE PRESS TRADES WORKER Orion Robles MD LAB PATHOLOGY Performing Organization Address City/State/ZIP Code Phon e Number [facility] [address] [place] [address] Endoscopy, sigmoid (05/01/2019 3:27 PM GRAPHIC PRE PRESS TRADES WORKER) Specimen (Source) Anatomical Collection Method Collection Time Re ceived Time Location / / Volume Laterality 05/01/2019 3:27 PM GRAPHIC PRE PRESS TRADES WORKER Narrative GI ([facility]OVATION) - 05/01/2019 3:27 PM GRAPHIC PRE PRESS TRADES WORKER Patient Name: Idania Duarte Procedure Date: 05/01/2019 3:27 PM Date of : 1975 Admit Type: Outpatient Age: 44 Gender: Female Note Status: Finalized Attending MD: Orion Robles , Procedure: ? Flexible Sigmo idoscopy Indications: ? High risk colon cancer surveillance: ? Ulcerativ e left sided colitis Providers: ? Fernando Parada RN Patient Profile: ? 44 year old woman with history of ? left side d ulcerative colitis on ? tofacitin ib until one week prior and ? currently taking 40 mg oral ? prednison e, 4.8 g Lialda, and Canasa ? who prese nted for refractory ? ulcerativ e colitis. Referring MD: ? Medicines: ? Midazolam 3 mg IV, Fentanyl 75 ? microgram s IV Complications: ? No immediate com plications. Procedure: ? After obtainin g informed consent, the ? scope was passed under direct vision. ? The [facility] 109L-09 was introduced ? through t juliet meyersus and advanced to the ? sigmoid c olon. The flexible ? sigmoidos copy was accomplished ? without d ifficulty. The patient ? tolerated the procedure well. The ? quality o f the bowel preparation was ? poor. Findings: ? A large amount of stool was found in the rectum, in ? the recto-sigmoid colon and in th e sigmoid colon, ? interfering with visualization. ? Normal mucosa was found in the si gmoid colon. ? Biopsies were taken with a cold f orceps for histology. ? Inflammation was found in a eduardo nuous and ? circumferential pattern from the anus to the rectum. ? This was graded as Tam Score 3 ( severe, with ? spontaneous bleeding, ulcerations ), and when compared ? to the previous examination, the findings are ? unchanged. Biopsies were taken wi th a cold forceps ? for histology. Verification of pa tient identification ? for the specimen was done. Estima teresa blood loss was ? minimal. Moderate Sedation: ? Moderate (conscious) sedation was administered by the ? endoscopy nurse and supervised by the endoscopist. ? The following parameters were mon itored: oxygen ? saturation, heart rate, blood pre ssure, and response ? to care. Total physician intraser vice time was 20 ? minutes. Impression: ?- Severe (Tam Score 3) proctitis ? ulcerativ e colitis, unchanged since ? the last examination. Biopsied. ? - Normal mucosa in the sigmoid colon. ? Biopsied. ? - Prepara tion of the colon was poor. ? - Stool i n the rectum, in the ? recto-sig moid colon and in the ? sigmoid c olon. Recommendation: ?- Return patient to hospital [facility] for ? ongoing c are. ? - Low res idue diet. ? - CRP terrence ly ? - Documen t stool burden ? - 20 mg I V methylprednisolone three ? times terrence ly ? - Rest of plan per GI Procedure Code(s): ?? --- Professional - -- ? 17934, Si gmoidoscopy, flexible; with ? biopsy, s marcos or multiple ? G0500, Mo derate sedation services ? provided by the same physician or ? other [facility] health care ? professio nal performing a ? gastroint estinal endoscopic service ? that radha tion supports, requiring the ? presence of an independent trained ? observer to assist in the monitoring ? of the pa tient's level of ? conscious ness and physiological ? status; i nitial 15 minutes of ? intra-ser vice time; patient age 5 ? years or older (additional time may ? be [place] [address], as ? appropria te) Diagnosis Code(s): ?? --- Professional - -- ? K51.50, L eft sided colitis without ? complicat ions CPT copyright 2018 [employer]. All rights reserved. The codes documented in this report are preliminary and upon hot mill shearer review may be revised to meet current compliance requirements. Orion Robles, 05/01/2019 4:34:47 PM Number of Addenda: 0 Note Initiated On: 05/01/2019 3:27 PM ? Endoscopy Report Procedure Note Orion Robles MD - 05/01/2019Formattin g of this note might be different from the original. Patient Name: Idania Duarte Procedure Date: 05/01/2019 3:27 PM Date of : 1975 Admit Type: Outpatient Age: 44 Gender: Female Note Status: Finalized Attending MD: Orion Robles , Procedure: Flexible Sigmoidoscopy Indications: High risk colon cancer surv eillance: Ulcerative left sided colitis Providers: Monique Parada RN Patient Profile: 44 year old woman with history of left sided ulcerative colitis on tofacitinib until one week prior and currently taking 40 mg oral prednisone, 4.8 g Lialda, and Canasa who presented for refractory ulcerative colitis. Referring MD: Medicines: Midazolam 3 mg IV, Fentanyl 7 5 micrograms IV Complications: No immediate complication s. Procedure: After obtaining informed cons ent, the scope was passed under direct vision. The [id number] was introduced through the anus and advanced to the sigmoid colon. The flexible sigmoidoscopy was accomplished without difficulty. The patient tolerated the procedure well. The quality of the bowel preparation was poor. Findings: A large amount of stool was found in th e rectum, in the recto-sigmoid colon and in the sigm oid colon, interfering with visualization. Normal mucosa was found in the sigmoid colon. Biopsies were taken with a cold forceps for histology. Inflammation was found in a continuous and circumferential pattern from the anus t o the rectum. This was graded as Tam Score 3 (severe , with spontaneous bleeding, ulcerations), and when compared to the previous examination, the findin gs are unchanged. Biopsies were taken with a c old forceps for histology. Verification of patient identification for the specimen was done. Estimated bl ood loss was minimal. Moderate Sedation: Moderate (conscious) sedation was admin istered by the endoscopy nurse and supervised by the e ndoscopist. The following parameters were monitored : oxygen saturation, heart rate, blood pressure, and response to care. Total physician intraservice t deandra was 20 minutes. Impression: - Severe (Tam Score 3) proc titis ulcerative colitis, unchanged since the last examination. Biopsied. - Normal mucosa in the sigmoid colon. Biopsied. - Preparation of the colon was poor. - Stool in the rectum, in the recto-sigmoid colon and in the sigmoid colon. Recommendation: - Return patient to hosp [facility] for ongoing care. - Low residue diet. - CRP daily - Document stool burden - 20 mg IV methylprednisolone three times daily - Rest of plan per GI Procedure Code(s): --- Professional --- 86775, Sigmoidoscopy, flexible; with biopsy, single or multiple G0500, Moderate sedation services provided by the same physician or other qualified health rn complex care performing a gastrointestinal endoscopic service that sedation supports, requiring the presence of an independent trained observer to assist in the monitoring of the patient's level of consciousness and physiological status; initial 15 minutes of intra-service time; patient age 5 years or older (additional time may be reported with [id number], as appropriate) Diagnosis Code(s): --- Professional --- K51.50, Left sided colitis without complications CPT copyright 2018 [employer]. All rights reserved. The codes documented in this report are preliminary and upon hot mill shearer review may be revised to meet current compliance requirements. Orion Robles, 05/01/2019 4:34:47 PM Number of Addenda: 0 Note Initiated On: 05/01/2019 3:27 PM Endoscopy Report Orion Robles MD PN GI PROCEDURE ORDERABLES Performing Organization Address City/[facility]/ZIP [facility] Phon e Number GI ([facility]OVATION) GI (PROVATION) [place], [place] Potassium (05/01/2019 2:55 PM GRAPHIC PRE PRESS TRADES WORKER) athologist Signature Potassium 3.8 3.5 - 5.1 05/01/2019 [facility] mmol/L 3:41 PM GRAPHIC PRE PRESS TRADES WORKER LABORATORY Specimen Anatomical Collection Method / Collection Time Recei peña Time (Source) Location / Volume Laterality Blood Venipuncture / 05/01/2019 2:55 05/01/2019 3:08 Unknown PM GRAPHIC PRE PRESS TRADES WORKER PM GRAPHIC PRE PRESS TRADES WORKER Alejandro Ang MD LAB_1 Performing Organization Address City/[facility] Phon e Number [facility] [address] [place] [address] Bedside Glucose Monitor (05/01/2019 12:41 PM GRAPHIC PRE PRESS TRADES WORKER) athologist Signature Glucose, Whole 122 70 - 180 05/01/2019 [facility] Blood mg/dL 12:50 PM GRAPHIC PRE PRESS TRADES WORKER LABORATORY Specimen Anatomical Collection Method Collection Time Receive d Time (Source) Location / / Volume Laterality Blood 05/01/2019 12:41 05/01/2019 PM GRAPHIC PRE PRESS TRADES WORKER 12:50 PM GRAPHIC PRE PRESS TRADES WORKER Alejandro Ang MD LAB_1 Performing Organization Address City/[facility] Phon e Number [facility] [address] [place] [address] C Reactive Protein (05/01/2019 9:35 AM GRAPHIC PRE PRESS TRADES WORKER) athologist Signature C-Reactive 0.4 0.0 - 0.7 05/01/2019 [facility] Protein mg/dL 10:06 AM GRAPHIC PRE PRESS TRADES WORKER LABORATORY Specimen Anatomical Collection Method / Collection Time Recei peña Time (Source) Location / Volume Laterality Blood Venipuncture / 05/01/2019 9:35 05/01/2019 9:39 Unknown AM GRAPHIC PRE PRESS TRADES WORKER AM GRAPHIC PRE PRESS TRADES WORKER Orion Robles MD LAB_1 Performing Organization Address City/[facility]/ZIP Code Phon e Number [facility] [address] [place] [address] Bedside Glucose Monitor (05/01/2019 7:32 AM GRAPHIC PRE PRESS TRADES WORKER) P athologist Signature Glucose, Whole 118 70 - 180 05/01/2019 [facility] Blood mg/dL 7:35 AM GRAPHIC PRE PRESS TRADES WORKER LABORATORY Specimen Anatomical Collection Method Collection Time Receive d Time (Source) Location / / Volume Laterality Blood 05/01/2019 7:32 AM 9 7:35 GRAPHIC PRE PRESS TRADES WORKER AM GRAPHIC PRE PRESS TRADES WORKER Alejandro Ang MD LAB_1 Performing Organization Address [facility] Phon e Number [facility] [address] [place] [address] (ABNORMAL) Complete Blood Count-W/Diff (05/01/2019 6:32 AM GRAPHIC PRE PRESS TRADES WORKER) Patholo gist Method Time Signature WBC 14.6 (H) 3.5 - 10.5 05/01/2019 [facility] x10(9)/L 6:44 AM GRAPHIC PRE PRESS TRADES WORKER LABORATORY RBC 4.14 3.90 - 05/01/2019 [facility] 5.03 6:44 AM GRAPHIC PRE PRESS TRADES WORKER LABORATORY x10(12)/L Hemoglobin 12.6 12.0 - 05/01/2019 [facility] 15.5 g/dL 6:44 AM GRAPHIC PRE PRESS TRADES WORKER LABORATORY HCT 39.6 34.9 - 05/01/2019 [facility] 44.5 % 6:44 AM GRAPHIC PRE PRESS TRADES WORKER LABORATORY MCV 95.7 80.0 - 05/01/2019 [facility] 100.0 fL 6:44 AM GRAPHIC PRE PRESS TRADES WORKER LABORATORY MCH 30.4 27.6 - 05/01/2019 [facility] 33.3 pg 6:44 AM GRAPHIC PRE PRESS TRADES WORKER LABORATORY MCHC 31.8 31.5 - 05/01/2019 [facility] 35.2 g/dL 6:44 AM GRAPHIC PRE PRESS TRADES WORKER LABORATORY RDW 13.2 11.9 - 05/01/2019 [facility] 15.5 % 6:44 AM GRAPHIC PRE PRESS TRADES WORKER LABORATORY Platelets 348 150 - 450 05/01/2019 [facility] x10(9)/L 6:44 AM GRAPHIC PRE PRESS TRADES WORKER LABORATORY Automated NRBC 0 <=0 /100 05/01/2019 [facility] WBC 6:44 AM GRAPHIC PRE PRESS TRADES WORKER LABORATORY Neutrophil 12.1 (H) 1.7 - 7.0 05/01/2019 [facility] Absolute 10(9)/L 6:44 AM GRAPHIC PRE PRESS TRADES WORKER LABORATORY Lymphocyte 1.6 1.0 - 4.8 05/01/2019 [facility] Absolute 10(9)/L 6:44 AM GRAPHIC PRE PRESS TRADES WORKER LABORATORY Monocytes 0.6 0.2 - 0.9 05/01/2019 [facility] Absolute 10(9)/L 6:44 AM GRAPHIC PRE PRESS TRADES WORKER LABORATORY Eosinophil 0.0 0.0 - 0.5 05/01/2019 [facility] Absolute 10(9)/L 6:44 AM GRAPHIC PRE PRESS TRADES WORKER LABORATORY Basophil 0.0 0.0 - 0.3 05/01/2019 [facility] Absolute 10(9)/L 6:44 AM GRAPHIC PRE PRESS TRADES WORKER LABORATORY Immature Gran % 1.1 (H) 0.0 - 0.5 05/01/2019 [facility] % 6:44 AM GRAPHIC PRE PRESS TRADES WORKER LABORATORY Specimen Anatomical Collection Method / Collection Time Recei peña Time (Source) Location / Volume Laterality Blood Venipuncture / 05/01/2019 6:32 05/01/2019 6:40 Unknown AM GRAPHIC PRE PRESS TRADES WORKER AM GRAPHIC PRE PRESS TRADES WORKER Sergio Potter MD LAB_1 Performing Organization Address City/State/[facility] Phon e Number [facility] [address] [place] [address] INR/PROTIME (05/01/2019 6:32 AM GRAPHIC PRE PRESS TRADES WORKER) P athologist Signature Protime 12.9 11.8 - 14.6 05/01/2019 [facility] Seconds 6:53 AM GRAPHIC PRE PRESS TRADES WORKER LABORATORY INR 1.0 0.9 - 1.1 05/01/2019 [facility] 6:53 AM GRAPHIC PRE PRESS TRADES WORKER LABORATORY Specimen Anatomical Collection Method / Collection Time Recei peña Time (Source) Location / Volume Laterality Blood Lab OP Venipuncture 05/01/2019 6:32 05/01 6:40 / Unknown AM GRAPHIC PRE PRESS TRADES WORKER AM GRAPHIC PRE PRESS TRADES WORKER Narrative [facility]ORY - 05/01/2019 6:53 A M GRAPHIC PRE PRESS TRADES WORKER Therapeutic range determined by protocol established by anticoagulation provider. Sergio Potter MD LAB_1 Performing Organization Address City/State/[facility] Phon e Number [facility] [address] [place] [address] (ABNORMAL) Basic Metabolic Panel (05/01/2019 6:32 AM GRAPHIC PRE PRESS TRADES WORKER) Analysis Performed At Patho logist Time Signature Sodium 136 136 - 145 05/01/2019 [facility] mmol/L 7:13 AM GRAPHIC PRE PRESS TRADES WORKER LABORATORY Potassium 3.9 3.5 - 5.1 05/01/2019 [facility] mmol/L 7:13 AM GRAPHIC PRE PRESS TRADES WORKER LABORATORY Chloride 104 98 - 109 05/01/2019 [facility] mmol/L 7:13 AM GRAPHIC PRE PRESS TRADES WORKER LABORATORY CO2 23 20 - 29 05/01/2019 [facility] mmol/L 7:13 AM GRAPHIC PRE PRESS TRADES WORKER LABORATORY Anion Gap 9 7 - 16 05/01/2019 [facility] mmol/L 7:13 AM GRAPHIC PRE PRESS TRADES WORKER LABORATORY Calcium 8.3 (L) 8.4 - 10.4 05/01/2019 [facility] mg/dL 7:13 AM GRAPHIC PRE PRESS TRADES WORKER LABORATORY BUN 10 7 - 26 05/01/2019 [facility] mg/dL 7:13 AM GRAPHIC PRE PRESS TRADES WORKER LABORATORY Creatinine 0.62 0.55 - 05/01/2019 [facility] 1.02 mg/dL 7:13 AM GRAPHIC PRE PRESS TRADES WORKER LABORATORY GFR, Estimated >60 >60 05/01/2019 [facility] mL/min/1.7 7:13 AM GRAPHIC PRE PRESS TRADES WORKER LABORATORY 3m2 GFR, Est If >60 >60 05/01/2019 [facility] mL/min/1.7 7:13 AM GRAPHIC PRE PRESS TRADES WORKER LABORATORY [place] 3m2 Glucose 153 (H) 70 - 100 05/01/2019 [facility] mg/dL 7:13 AM GRAPHIC PRE PRESS TRADES WORKER LABORATORY Comment: The given reference range is fo r the fasting state. Non-fasting reference range for glucose is 70 - 180 mg/dL. Specimen Anatomical Collection Method / Collection Time Recei peña Time (Source) Location / Volume Laterality Blood Venipuncture / 05/01/2019 6:32 05/01/2019 6:40 Unknown AM GRAPHIC PRE PRESS TRADES WORKER AM GRAPHIC PRE PRESS TRADES WORKER Sergio Potter MD LAB_1 Performing Organization Address City/State/ZIP Code Phon e Number [facility] [address] [place] [address] MAGNESIUM (05/01/2019 6:32 AM GRAPHIC PRE PRESS TRADES WORKER) P athologist Signature Magnesium 1.8 1.6 - 2.6 05/01/2019 [facility] mg/dL 7:13 AM GRAPHIC PRE PRESS TRADES WORKER LABORATORY Specimen Anatomical Collection Method / Collection Time Recei peña Time (Source) Location / Volume Laterality Blood Venipuncture / 05/01/2019 6:32 05/01/2019 6:40 Unknown AM GRAPHIC PRE PRESS TRADES WORKER AM GRAPHIC PRE PRESS TRADES WORKER Sergio Potter MD LAB_1 Performing Organization Address City/State/ZIP Code Phon e Number [facility] [address] [place] [address] (ABNORMAL) Complete Blood Count-W/Diff (04/30/2019 7:46 PM GRAPHIC PRE PRESS TRADES WORKER) [facility] Method Time Signature WBC 15.9 (H) 3.5 - 10.5 04/30/2019 [facility] x10(9)/L 7:54 PM GRAPHIC PRE PRESS TRADES WORKER LABORATORY RBC 4.53 3.90 - 04/30/2019 [facility] 5.03 7:54 PM GRAPHIC PRE PRESS TRADES WORKER LABORATORY x10(12)/L Hemoglobin 14.1 12.0 - 04/30/2019 [facility] 15.5 g/dL 7:54 PM GRAPHIC PRE PRESS TRADES WORKER [facility] HCT 42.3 34.9 - 04/30/2019 [facility] 44.5 % 7:54 PM GRAPHIC PRE PRESS TRADES WORKER LABORATORY MCV 93.4 80.0 - 04/30/2019 [facility] 100.0 fL 7:54 PM GRAPHIC PRE PRESS TRADES WORKER LABORATORY MCH 31.1 27.6 - 04/30/2019 [facility] 33.3 pg 7:54 PM GRAPHIC PRE PRESS TRADES WORKER LABORATORY MCHC 33.3 31.5 - 04/30/2019 [facility] 35.2 g/dL 7:54 PM GRAPHIC PRE PRESS TRADES WORKER LAB[facility] RDW 13.2 11.9 - 04/30/2019 [facility] 15.5 % 7:54 PM GRAPHIC PRE PRESS TRADES WORKER LAB[facility]ATORY Platelets 390 150 - 450 04/30/2019 [facility] x10(9)/L 7:54 PM GRAPHIC PRE PRESS TRADES WORKER LABORATORY Automated NRBC 0 <=0 /100 04/30/2019 [facility] WBC 7:54 PM GRAPHIC PRE PRESS TRADES WORKER LABORATORY Neutrophil 11.8 (H) 1.7 - 7.0 04/30/2019 [facility] Absolute 10(9)/L 7:54 PM GRAPHIC PRE PRESS TRADES WORKER LABORATORY Lymphocyte 2.9 1.0 - 4.8 04/30/2019 [facility] Absolute 10(9)/L 7:54 PM GRAPHIC PRE PRESS TRADES WORKER LABORAT[facility] Monocytes 1.0 (H) 0.2 - 0.9 04/30/2019 [facility] Absolute 10(9)/L 7:54 PM GRAPHIC PRE PRESS TRADES WORKER [facility] Eosinophil 0.0 0.0 - 0.5 04/30/2019 [facility] Absolute 10(9)/L 7:54 PM GRAPHIC PRE PRESS TRADES WORKER [facility] Basophil 0.0 0.0 - 0.3 04/30/2019 [facility] Absolute 10(9)/L 7:54 PM GRAPHIC PRE PRESS TRADES WORKER [facility] Immature Gran % 0.9 (H) 0.0 - 0.5 04/30/2019 [facility] % 7:54 PM GRAPHIC PRE PRESS TRADES WORKER LABORATORY Specimen Anatomical Collection Method / Collection Time Recei peña Time (Source) Location / Volume Laterality Blood Venipuncture / 04/30/2019 7:46 04/30/2019 7:49 Unknown PM GRAPHIC PRE PRESS TRADES WORKER PM GRAPHIC PRE PRESS TRADES WORKER Sergio Potter MD LAB_1 Performing Organization Address [facility] Phon e Number [facility] [address] [place] [phone] C Reactive Protein (04/30/2019 7:46 PM GRAPHIC PRE PRESS TRADES WORKER) P athologist Signature C-Reactive 0.4 0.0 - 0.7 04/30/2019 [facility] Protein mg/dL 8:15 PM GRAPHIC PRE PRESS TRADES WORKER LABORATORY Specimen Anatomical Collection Method / Collection Time Recei peña Time (Source) Location / Volume Laterality Blood Venipuncture / 04/30/2019 7:46 04/30/2019 7:50 Unknown PM GRAPHIC PRE PRESS TRADES WORKER PM GRAPHIC PRE PRESS TRADES WORKER Sergio Potter MD LAB_1 Performing Organization Address [facility] Phon e Number [facility] [address] [place] [id number] Sedimentation Rate (04/30/2019 7:46 PM GRAPHIC PRE PRESS TRADES WORKER) Patholo gist Method Time Signature Sedimentation Rate 7 0 - 20 04/30/2019 [facility] mm/hr 8:39 PM GRAPHIC PRE PRESS TRADES WORKER LABORATORY Specimen Anatomical Collection Method / Collection Time Recei peña Time (Source) Location / Volume Laterality Blood Venipuncture / 04/30/2019 7:46 04/30/2019 7:50 Unknown PM GRAPHIC PRE PRESS TRADES WORKER PM GRAPHIC PRE PRESS TRADES WORKER Sergio Potter MD LAB_1 Performing Organization Address [facility] Phon e Number [facility] [address] [place] [address] INR/PROTIME (04/30/2019 7:46 PM GRAPHIC PRE PRESS TRADES WORKER) P athologist Signature Protime 12.0 11.8 - 14.6 04/30/2019 [facility] Seconds 8:03 PM GRAPHIC PRE PRESS TRADES WORKER LABORATORY INR 0.9 0.9 - 1.1 04/30/2019 [facility] 8:03 PM GRAPHIC PRE PRESS TRADES WORKER LABORATORY Specimen Anatomical Collection Method / Collection Time Recei peña Time (Source) Location / Volume Laterality Blood Venipuncture / 04/30/2019 7:46 04/30/2019 7:50 Unknown PM GRAPHIC PRE PRESS TRADES WORKER PM GRAPHIC PRE PRESS TRADES WORKER Narrative [facility] - 04/30/2019 8:03 P M GRAPHIC PRE PRESS TRADES WORKER Therapeutic range determined by protocol established by anticoagulation provider. Sergio Potter MD LAB_1 Performing Organization Address [facility] Phon e Number [facility] [address] [place] [address] (ABNORMAL) Liver Panel(Hepatic Function Panel) (04/30/2019 7:46 PM GRAPHIC PRE PRESS TRADES WORKER) [facility] Method Time Signature Alkaline 46 40 - 150 04/30/2019 [facility] Phosphatase U/L 8:14 PM GRAPHIC PRE PRESS TRADES WORKER LABORATORY Bilirubin, Total 0.3 0.2 - 1.2 04/30/2019 [facility] mg/dL 8:14 PM GRAPHIC PRE PRESS TRADES WORKER LABORATORY Bilirubin, 0.1 0.0 - 0.5 04/30/2019 [facility] Direct mg/dL 8:14 PM GRAPHIC PRE PRESS TRADES WORKER LABORATORY AST (SGOT) 14 10 - 40 04/30/2019 [facility] U/L 8:14 PM GRAPHIC PRE PRESS TRADES WORKER LABORATORY ALT (SGPT) 23 0 - 55 U/L 04/30/2019 [facility] 8:14 PM GRAPHIC PRE PRESS TRADES WORKER LABORATORY Protein, Total 6.9 6.4 - 8.3 04/30/2019 [facility] g/dL 8:14 PM GRAPHIC PRE PRESS TRADES WORKER LABORATORY Albumin 3.3 (L) 3.5 - 5.0 04/30/2019 [facility] g/dL 8:14 PM GRAPHIC PRE PRESS TRADES WORKER LABORATORY Specimen Anatomical Collection Method / Collection Time Recei peña Time (Source) Location / Volume Laterality Blood Venipuncture / 04/30/2019 7:46 04/30/2019 7:50 Unknown PM GRAPHIC PRE PRESS TRADES WORKER PM GRAPHIC PRE PRESS TRADES WORKER Sergio Potter MD LAB_1 Performing Organization Address [facility] Phon e Number [facility] [address] [place] [address] (ABNORMAL) Basic Metabolic Panel (04/30/2019 7:46 PM GRAPHIC PRE PRESS TRADES WORKER) Analysis Performed At Patho logist Time Signature Sodium 137 136 - 145 04/30/2019 [facility] mmol/L 8:14 PM GRAPHIC PRE PRESS TRADES WORKER LABORATORY Potassium 3.0 (L) 3.5 - 5.1 04/30/2019 [facility] mmol/L 8:14 PM GRAPHIC PRE PRESS TRADES WORKER LABORATORY Chloride 100 98 - 109 04/30/2019 [facility] mmol/L 8:14 PM GRAPHIC PRE PRESS TRADES WORKER LABORATORY CO2 27 20 - 29 04/30/2019 [facility] mmol/L 8:14 PM GRAPHIC PRE PRESS TRADES WORKER LABORATORY Anion Gap 10 7 - 16 04/30/2019 [facility] mmol/L 8:14 PM GRAPHIC PRE PRESS TRADES WORKER LABORATORY Calcium 9.0 8.4 - 10.4 04/30/2019 [facility] mg/dL 8:14 PM GRAPHIC PRE PRESS TRADES WORKER LABORATORY BUN 13 7 - 26 04/30/2019 [facility] mg/dL 8:14 PM GRAPHIC PRE PRESS TRADES WORKER LABORATORY Creatinine 0.73 0.55 - 04/30/2019 [facility] 1.02 mg/dL 8:14 PM GRAPHIC PRE PRESS TRADES WORKER LABORATORY GFR, Estimated >60 >60 04/30/2019 [facility] mL/min/1.7 8:14 PM GRAPHIC PRE PRESS TRADES WORKER LABORATORY 3m2 GFR, Est If >60 >60 04/30/2019 [facility] mL/min/1.7 8:14 PM GRAPHIC PRE PRESS TRADES WORKER LABORATORY [place] 3m2 Glucose 114 (H) 70 - 100 04/30/2019 [facility] mg/dL 8:14 PM GRAPHIC PRE PRESS TRADES WORKER LABORATORY Comment: The given reference range is fo r the fasting state. Non-fasting reference range for glucose is 70 - 180 mg/dL. Specimen Anatomical Collection Method / Collection Time Recei peña Time (Source) Location / Volume Laterality Blood Venipuncture / 04/30/2019 7:46 04/30/2019 7:50 Unknown PM GRAPHIC PRE PRESS TRADES WORKER PM GRAPHIC PRE PRESS TRADES WORKER Sergio Potter MD LAB_1 Performing Organization Address City/State/ZIP Code Phon e Number [facility] [address] [place] [address] MAGNESIUM (04/30/2019 7:46 PM GRAPHIC PRE PRESS TRADES WORKER) P athologist Signature Magnesium 2.0 1.6 - 2.6 04/30/2019 [facility] mg/dL 8:14 PM GRAPHIC PRE PRESS TRADES WORKER LABORATORY Specimen Anatomical Collection Method / Collection Time Recei peña Time (Source) Location / Volume Laterality Blood Venipuncture / 04/30/2019 7:46 04/30/2019 7:50 Unknown PM GRAPHIC PRE PRESS TRADES WORKER PM GRAPHIC PRE PRESS TRADES WORKER Sergio Potter MD LAB_1 Performing Organization Address City/State/ZIP Code Phon e Number [facility] [address] [place] [address] documented in this encounter Visit Diagnoses Diagnosis 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 difficile colitis Intestinal infection due to clostridium difficile Plan of Care - Tammi Berry APRN, CNP - 04/30/2019 3:29 PM CST Direct Admit/Transfer Report Nonbillable service Name//MRN: Idania Duarte 1975 [id number] Referring Facility: [facility] Referring Provider: Faye Hinojsoa CNP Symptoms/Diagnosis: Known Ulcerative Colitis failing outpatient steroid therapy (40 mg of Prednisonedaily), now with several days of bloody diarrhea Needs: GI consultation, Lab work-possible transfusion if Hgb low, Initial recommendations of transitioning from Prednisone-->Methylprednisone 20 mg IV q8hrs. Bed Level Requested: medical Pt is a 44 yo f with a PMHx notable for known malignant melanoma of trunk, HTN and UC who will be a direct admission for the above symptoms/diagnosis. Per sending provider patient is deemed clinically and vitally stable for direct admission to the floor. Will arrive by private vehicle. Please page the hospital triage pager upon pt's arrival. Tammi Berry APRN, CNP 04/30/2019, 3:29 PM HIC PRE PRESS TRADES WORKER documented in this encounter Administered Medications Inactive Administered Medications - up to 3 most recent administrations Medication Order MAR Action Action Date Dose Rate Site control pill Self Administered 05/05/2019 8:00 AM 1 Tablet (patient's own medication) GRAPHIC PRE PRESS TRADES WORKER 1 Tablet 1 Tablet, Oral, DAILY, First dose on Tamela 05/01/19 at 0800, Until Discontinued, norethindrone-eth estradiol (DASETTA ) 1-35 MG-MCG tablet, OP SIG:Take 1 Tablet by mouth daily. Takes continuously Preparation: Single glove; respiratory protection optional, Administration: If no touch, no PPE; if handling, single glove Self Administered 05/04/2019 8:00 AM GRAPHIC PRE PRESS TRADES WORKER 1 Tablet Self Administered 05/03/2019 8:00 AM GRAPHIC PRE PRESS TRADES WORKER 1 Tablet cholestyramine (QUESTRAN) packet 4 g Given 05/05/2019 8:02 AM GRAPHIC PRE PRESS TRADES WORKER 4 g 4 g, Oral, QDAY WITH MEAL, First dose on Tamela 05/01/19 at 0800, Until Discontinued Given 05/04/2019 8:15 AM GRAPHIC PRE PRESS TRADES WORKER 4 g Given 05/03/2019 7:54 AM GRAPHIC PRE PRESS TRADES WORKER 4 g enoxaparin (LOVENOX) injection Given 05/05/2019 9:09 AM GRAPHIC PRE PRESS TRADES WORKER 40 m g Abdominal Tissue 40 mg 40 mg, Subcutaneous, Q24H, First dose on Tamela 05/01/19 at 0900, Until Discontinued Given 05/04/2019 8:16 AM GRAPHIC PRE PRESS TRADES WORKER 40 mg Abdom inal Tissue Given 05/03/2019 9:57 AM GRAPHIC PRE PRESS TRADES WORKER 40 mg Abdom inal Tissue fentaNYL (SUBLIMAZE) injection 25-100 mc g Given 05/01/2019 4:12 PM GRAPHIC PRE PRESS TRADES WORKER 75 mcg 25-100 mcg, Intravenous, PRN, Other, Moderate Sedation, Starting on Tamela 05/01/19 at 1611, Until Tamela 05/01/19 at 1628, Administer in 25-100 mcg increments as directed by endoscopy procedure MD up to a total of 300 mcg. (Give only during endoscopy procedure visit) inFLIXimab (REMICADE) 400 mg in sodium Started 05/03/2019 2:48 PM GRAPHIC PRE PRESS TRADES WORKER 400 mg chloride 0.9 % 250 mL IVPB 400 mg (rounded from 413 mg = 5 mg/kg ? 82.6 kg), Intravenous, ONCE, On 05/03/19 at 1400, For 1 dose, Infuse VIA in-line filter. magnesium oxide-amino acids (MG-PLUS-PRO TEIN) tablet 2 Tablet 2 Tablet, Oral, CONDITIONAL, Other, if s teo magnesium is less than 1.6 and patient IS ABLE to take oral magnesium., Starting on Sun at 1936, Until 05/05/19 at 1559, Give 2 tablets EVERY 4 HOURS WHILE A WAKE x 4 doses when conditions are met. (GIVE BOTH IV AND PO REPLACEMENT) RN to NOTIFY Pharmacy to place scheduled medication order IF CONDITIONS are met . If replacement is given pharmacy to recheck serum magnesium the following morning and replace as needed. magnesium oxide-amino acids Given 05/02/2019 9:55 PM GRAPHIC PRE PRESS TRADES WORKER 2 Table ts (FL-FGVH-FUCCABG) tablet 2 Tablet 2 Tablet, Oral, Q4H W/A, First dose (after last reorder) on Sun05/01/19 at 1400, Last dose on Sun05/02/19 at 2200, For 8 doses, Give 2 tablets EVERY 4 HOURS WHILE AWAKE x 8 doses when conditions are met. RN to NOTIFY Pharmacy to place scheduled medication order IF CONDITIONS are met. If replacement is given pharmacy to recheck serum magnesium in the AM DAY +2 (approximately 48 hours later). Given 05/02/2019 6:12 PM GRAPHIC PRE PRESS TRADES WORKER 2 Tablets Given 05/02/2019 1:34 PM GRAPHIC PRE PRESS TRADES WORKER 2 Tablets magnesium sulfate 2 g in water 50 ml IVP B 2 g, Intravenous, CONDITIONAL, Electroly te Replacement, if serum magnesium is less than 1.6 and patient IS ABLE to take ora l magnesium., Starting on Sun04/30/19 at 1936, Administer over 4 hours. Give ONCE when conditions are met. (GIVE BOTH IV AND PO REPLACEMENT) RN to NOTIFY Pharmacy to place schedul ed medication order IF CONDITIONS are met. If replacement is gi chris pharmacy to recheck serum magnesium the following morning and replace as needed. melatonin tablet 3 mg Given 05/04/2019 9:42 PM GRAPHIC PRE PRESS TRADES WORKER 3 mg 3 mg, Oral, HS PRN, Other, Mild insomnia, Starting on Sun04/30/19 at 1936, Until 05/05/19 at 1559 Given 05/03/2019 9:17 PM GRAPHIC PRE PRESS TRADES WORKER 3 mg Given 05/02/2019 10:01 PM GRAPHIC PRE PRESS TRADES WORKER 3 mg mesalamine (CANASA) rectal suppository Given 05/04/2019 9:42 PM GRAPHIC PRE PRESS TRADES WORKER 1,000 mg 1,000 mg 1,000 mg, Rectal, HS, First dose on Sun05/01/19 at 2200, Until Discontinued Given 05/03/2019 10:00 PM GRAPHIC PRE PRESS TRADES WORKER 1,000 mg Given 05/02/2019 10:00 PM GRAPHIC PRE PRESS TRADES WORKER 1,000 mg mesalamine (LIALDA) enteric coated tablet 4.8 Given 8:00 AM GRAPHIC PRE PRESS TRADES WORKER 4.8 g g 4.8 g, Oral, QDAY WITH MEAL, First dose on Sun05/01/19 at 0800, Until Discontinued, Tablet should be swallowed whole Given 05/01/2019 8:47 AM GRAPHIC PRE PRESS TRADES WORKER 4.8 g methylPREDNISolone sodium succinate Given 05/02/2019 7:45 PM GRAPHIC PRE PRESS TRADES WORKER 20 mg (SOLU-Medrol) injection 20 mg 20 mg, Intravenous, Q8H, First dose on Sun04/30/19 at 2000, Last dose on Sun05/02/19 at 2000, For 7 doses Given 05/02/2019 1:34 PM GRAPHIC PRE PRESS TRADES WORKER 20 mg Given 05/02/2019 5:09 AM GRAPHIC PRE PRESS TRADES WORKER 20 mg midazolam (VERSED) injection 0.5-2 mg Given 05/01/2019 4:12 PM GRAPHIC PRE PRESS TRADES WORKER 3 mg 0.5-2 mg, Intravenous, PRN, Sedation, Starting on Tamela 05/01/19 at 1611, Until Tamela 05/01/19 at 1628, Administer in 0.5-2 mg increments as directed by endoscopy procedure MD up to a total of 8 mg. (Give only during endoscopy procedure visit) potassium bicarbonate-citric acid (EFFER-K) Given 12/2018 11:08 AM GRAPHIC PRE PRESS TRADES WORKER 20 mEq effervescent tablet 20 mEq 20 mEq, Oral, ONCE, On Tamela 05/01/19 at 0945, For 1 dose, Recheck serum potassium 4 hours after completing replacement and repeat protocol if indicated. Dissolve tablets completely in 3 to 4 ounces of cold/ice water or juice. May further dilute if GI adverse effects occur. May take 3-4 minutes to completely dissolve. potassium bicarbonate-citric acid (EFFER-K) Given 05/01/2019 7:31 PM GRAPHIC PRE PRESS TRADES WORKER 20 mEq effervescent tablet 20 mEq 20 mEq, Oral, ONCE, On Tamela 05/01/19 at 1900, For 1 dose, Recheck serum potassium 4 hours after completing replacement and repeat protocol if indicated. Dissolve tablets completely in 3 to 4 ounces of cold/ice water or juice. May further dilute if GI adverse effects occur. May take 3-4 minutes to completely dissolve. potassium bicarbonate-citric acid (EFFER-K) Given 05/02/2019 3:45 AM GRAPHIC PRE PRESS TRADES WORKER 20 mEq effervescent tablet 20 mEq 20 mEq, Oral, ONCE, On Sun05/02/19 at 0400, For 1 dose, Recheck serum potassium 4 hours after completing replacement and repeat protocol if indicated. Dissolve tablets completely in 3 to 4 ounces of cold/ice water or juice. May further dilute if GI adverse effects occur. May take 3-4 minutes to completely dissolve. potassium bicarbonate-citric acid (EFFER-K) Given 05/02/2019 5:01 PM GRAPHIC PRE PRESS TRADES WORKER 20 mEq effervescent tablet 20 mEq 20 mEq, Oral, ONCE, On Sun05/02/19 at 1645, For 1 dose, Recheck serum potassium 4 hours after completing replacement and repeat protocol if indicated. Dissolve tablets completely in 3 to 4 ounces of cold/ice water or juice. May further dilute if GI adverse effects occur. May take 3-4 minutes to completely dissolve. potassium bicarbonate-citric acid (EFFER-K) Given 05/01/2019 4:45 AM GRAPHIC PRE PRESS TRADES WORKER 40 mEq effervescent tablet 40 mEq 40 mEq, Oral, Q4H (NON-STND), First dose on Tamela 05/01/19 at 0045, Last dose on Sun05/01/19 at 0445, For 2 doses, Recheck serum potassium 4 hours after completing replacement and repeat protocol if indicated. Dissolve tablets completely in 3 to 4 ounces of cold/ice water or juice. May further dilute if GI adverse effects occur. May take 3-4 minutes to completely dissolve. Given 05/01/2019 12:47 AM GRAPHIC PRE PRESS TRADES WORKER 40 mEq potassium bicarbonate-citric acid (EFFER-K) Given 05/04/2019 8:16 AM GRAPHIC PRE PRESS TRADES WORKER 40 mEq effervescent tablet 40 mEq 40 mEq, Oral, ONCE, On 05/04/19 at 0800, For 1 dose, Recheck serum potassium 4 hours after completing replacement and repeat protocol if indicated. Dissolve tablets completely in 3 to 4 ounces of cold/ice water or juice. May further dilute if GI adverse effects occur. May take 3-4 minutes to completely dissolve. potassium bicarbonate-citric acid (EFFER-K) Given 05/05/2019 8:02 AM GRAPHIC PRE PRESS TRADES WORKER 40 mEq effervescent tablet 40 mEq 40 mEq, Oral, ONCE, On 05/05/19 at 0745, For 1 dose, Recheck serum potassium 4 hours after completing replacement and repeat protocol if indicated. Dissolve tablets completely in 3 to 4 ounces of cold/ice water or juice. May further dilute if GI adverse effects occur. May take 3-4 minutes to completely dissolve. predniSONE (DELTASONE) tablet 40 mg Given 05/05/2019 8:02 AM GRAPHIC PRE PRESS TRADES WORKER 40 mg 40 mg, Oral, DAILY, First dose on 05/03/19 at 0800, Until Discontinued Given 05/04/2019 8:16 AM GRAPHIC PRE PRESS TRADES WORKER 40 mg Given 05/03/2019 7:54 AM GRAPHIC PRE PRESS TRADES WORKER 40 mg sodium chloride 0.9% 0.9 % injection - ADS Given 04/30/2019 9:27 PM GRAPHIC PRE PRESS TRADES WORKER 10 mL Override Pull Starting on Sun04/30/19 at 2013, Until Sun04/30/19 at 2127, For 1 dose, Norzom, Luís : cabinet override sodium chloride 0.9% infusion New Bag Started 05/01/2019 7:30 AM 100 mL/hr Intravenous, at 100 mL/hr, GRAPHIC PRE PRESS TRADES WORKER CONTINUOUS, Starting on Sun04/30/19 at 2000, For 14 hours Started 04/30/2019 9:32 PM GRAPHIC PRE PRESS TRADES WORKER 100 mL/hr sodium chloride 0.9% injection 10-60 mL Given 05/02/2019 7:45 PM GRAPHIC PRE PRESS TRADES WORKER 10 mL 10-60 mL, Intravenous, BID, First dose on Sun04/30/19 at 2145, Until Discontinued, For an INT flush, flush with at least 10 mL. For PICC (including Power Injectable PICC), flush with 10 mL. For Port-a-Cath, flush with a minimum of 10mL. For Castellon, flush with a minimum of 10 mL. For jugular, subclavian, femoral central lines, flush with a minimum 10 mL. For additional information about flushing processes, reference the Vascular Access Device Users Guide. Given 05/02/2019 8:01 AM GRAPHIC PRE PRESS TRADES WORKER 10 mL Given 05/01/2019 7:32 PM GRAPHIC PRE PRESS TRADES WORKER 10 mL sodium chloride 0.9% injection 10-60 mL Given 05/03/2019 2:38 PM GRAPHIC PRE PRESS TRADES WORKER 10 mL 10-60 mL, Intravenous, PRN, Line Patency, Line Care, Starting on Sun04/30/19 at 2120, Until Sun05/05/19 at 1559, For an INT flush, flush with at least 10 mL. For PICC (including Power Injectable PICC), flush with 10 mL. For Port-a-Cath, flush with a minimum of 10mL. For Castellon, flush with a minimum of 10 mL. For jugular, subclavian, femoral central lines, flush with a minimum 10 mL. For additional information about flushing processes, reference the Vascular Access Device Users Guide. Given 05/02/2019 5:09 AM GRAPHIC PRE PRESS TRADES WORKER 10 mL Given 05/01/2019 2:01 PM GRAPHIC PRE PRESS TRADES WORKER 10 mL triamterene-hydrochlorothiazide (MAXZIDE-25) Given 04/2019 8:02 AM GRAPHIC PRE PRESS TRADES WORKER 1 Tablet 37.5-25 MG per tablet 1 Tablet 1 Tablet, Oral, DAILY, First dose on Sun05/02/19 at 1145, Until Discontinued, OP SIG:TAKE 1 TABLET BY MOUTH DAILY. Given 05/04/2019 8:16 AM GRAPHIC PRE PRESS TRADES WORKER 1 Tablet Given 05/03/2019 7:54 AM GRAPHIC PRE PRESS TRADES WORKER 1 Tablet documented in this encounter Active and Recently Administered Medications Times are shown in GRAPHIC PRE PRESS TRADES WORKER. Scheduled Medication Order 05/03/2019 05/04/2019 05/05/2019 control pill (patient's own medication) 1 Tablet 0800 (Self Administered - Provider: Acosta Farrell RN - Comment: own) 0800 (Self Administered - Provider: Acosta Farrell RN) 0800 (Self Administered - Provider: Abram Farrell RN) 1 Tablet, Oral, DAILY, First dose on Sun05/01/19 at 0800, norethindrone-eth estradiol (DASETTA ) 1-35 MG-MCG tablet, OP SIG:Take 1 Tablet by mouth daily. Takes continuously Preparation: Single glove ; respiratory protection optional, Admin istration: If no touch, no PPE; if handling, single glove cholestyramine (QUESTRAN) packet 4 g 0754 (Given - Pro vider: Acosta Farrell RN) 0815 (Given - Provider: Acosta Farrell RN) 0802 (G iven - Provider: Acosta Farrell RN) 4 g, Oral, QDAY WITH MEAL, First dose on Sun05/01/19 at 0800 enoxaparin (LOVENOX) injection 40 mg 0957 (Given - Pro vider: Acosta Farrell RN) 0816 (Given - Provider: Acosta Farrell RN) 0909 (G iven - Provider: Acosta Farrell RN) 40 mg, Subcutaneous, Q24H, First dose on Sun05/01/19 at 0900 inFLIXimab (REMICADE) 400 mg in sodium chloride 0.9 % 250 mL IVPB (COMPLETED) 1448 (Started - Provider: Acosta Farrell RN)1738 (Infused - Provider: Acosta Farrell RN) 400 mg (rounded from 413 mg = 5 mg/kg ? 82.6 kg), Intravenous, ONCE, 05/03/19 at 1400, For 1 dose, Infuse VIA in- line filter. mesalamine (CANASA) rectal suppository 1,000 mg 2200 ( Given - Provider: Tavares Thomas RN) 2142 (Given - Provider: Tavares Thomas RN) 1,000 mg, Rectal, HS, First dose on Tamela 05/01/19 at 2200 POTASSIUM (HIGH) REPLACEMENT PROTOCOL - Goal is 4 mMol /L 0000 (Noted - Provider: Dayna Gray RN - Comment: 4.2)0800 (Noted - Provider: Acosta Farrell RN)1600 (Noted - Provider: Acosta Farrell RN) 0000 (Noted - Provider: Tavares Thomas RN)0741 (Noted - Provider: Acosta Farrell RN)1600 (Noted - Provider: Tavares Thomas RN) 0000 (Noted - Provider: Tavares Thomas RN)0715 (Noted - Provider: Acosta Farrell RN) RN to place pharmacy message when replac ement is needed. Oral replacement is recommended for all patients able to take oral medications, IV replacement only for patient unable to take PO. Pharmacy to pl rush appropriate medication replacement o rders per protocol., Q8H, First dose on Tamela 05/01/19 at 0000 potassium bicarbonate-citric acid (EFFER -K) effervescent tablet 40 mEq (COMPLETED) 0816 (Given - Provider: Acosta laura RN) 40 mEq, Oral, ONCE, On 05/04/19 at 0 800, For 1 dose, Recheck serum potassium 4 hours after completing replacement and repeat protocol if indicated. Dissolve tablets completely in 3 to 4 ounces of co ld/ice water or juice. May further dilut e if GI adverse effects occur. May take 3-4 minutes to completely dissolve. potassium bicarbonate-citric acid (EFFER -K) effervescent tablet 40 mEq (COMPLETED) 0802 (Given - Provid er: Acosta Farrell RN) 40 mEq, Oral, ONCE, 05/05/19 at 0745 , For 1 dose, Recheck serum potassium 4 hours after completing replacement and repeat protocol if indicated. Dissolve tablets completely in 3 to 4 ounces of cold/ ice water or juice. May further dilute i f GI adverse effects occur. May take 3-4 minutes to completely dissolve. predniSONE (DELTASONE) tablet 40 mg 0754 (Given - Prov ider: Acosta Farrell RN) 0816 (Given - Provider: Acosta Farrell RN) 0802 (G iven - Provider: Acosta Farrell RN) 40 mg, Oral, DAILY, First dose on Sun05/03/19 at 0800 triamterene-hydrochlorothiazide (MAXZIDE-25) 37.5-25 M G per tablet 1 Tablet 0754 (Given - Provider: Acosta Farrell RN) 0816 (Given - Provider: Acosta Farrell RN) 0802 (Given - Provider: Acosta laura RN) 1 Tablet, Oral, DAILY, First dose on Sun05/02/19 at 1145, OP SIG:TAKE 1 TABLET BY MOUTH DAILY. PRN Medication Order 05/03/2019 05/04/2019 05/05/2019 acetaminophen (TYLENOL) tablet 650 mg 650 mg, Oral, Q6H PRN, Other, Mild Pain (pain score 1-4), Starting 04/30/19 at 1936, Give for mild pain or if patient prefers acetaminophen over other options for pain (all pain scores). benzocaine-menthol (CEPACOL) lozenge 1 Lozenge 1 Lozenge, Oral, Q2H PRN, Throat Pain, Starting Sun04/30/19 at 1 936 calcium carbonate (TUMS) chewable tablet 500 mg 500 mg, Oral, Q4H PRN, Heartburn, Upset Stomach, Starting Sun04/30/19 at 1936, Each tablet provides 200 mg elemental calcium dicyclomine (BENTYL) capsule 20 mg 20 mg, Oral, QID PRN, Irritable Bowel, Starting Sun04/30/19 at 1 934 guaiFENesin (ROBITUSSIN) 100 MG/5ML oral liquid 10 mL 10 mL, Oral, Q4H PRN, Cough, Starting Sun04/30/19 at 193 HYDROmorphone (DILAUDID) tablet 2-4 mg 2-4 mg, Oral, Q4H PRN, Other, Moderate P ain (pain score 5-7) or Severe Pain (pain score 8-10), Starting Sun04/30/19 at 193, For moderate or severe pain. Do NOT administer at the same time as IV opioids . May administer 2 hours after IV opioid administration. HYDROmorphone injectable 0.3-0.5 mg 0.3-0.5 mg, Intravenous, Q2H PRN, Other, Moderate Pain (pain score 5-7) or Severe Pain (pain score 8-10), Starting Sun04/30/19 at 1935, For moderate or severe pain not controlled by oral opioids or if p atient is unable to take PO. Do NOT admi nister at the same time as PO opioids. May administer 1 hour after PO opioid administration if needed. magnesium oxide-amino acids (IE-PLJT-CTXOVTP) tablet 2 Tablet(Li nked Group 1) 2 Tablet, Oral, CONDITIONAL, Other, if s teo magnesium is less than 1.6 and patient IS ABLE to take oral magnesium., Starting Sun04/30/19 at 1935, Give 2 tablets EVERY 4 HOURS WHILE AWAKE x 4 doses when conditions are met. (GIVE BOTH IV AND P O REPLACEMENT) RN to NOTIFY Pharmacy to place scheduled medication order IF CONDITIONS are met. If replacement is given pharmacy to recheck serum magnesium the following morning and replace as needed. magnesium oxide-amino acids (GM-SVOH-XZUMRDP) tablet 2 Tablet 2 Tablet, Oral, CONDITIONAL, Other, if s teo magnesium is 1.6-2.0 and patient IS ABLE to take oral magnesium., Starting Sun04/30/19 at 1935, Give 2 tablets EVERY 4 HOURS WHILE AWAKE x 8 doses when condi tions are met. RN to NOTIFY Pharmacy to place scheduled medication order IF CONDITIONS are met. If replacement is given pharmacy to recheck serum magnesium in the AM DAY +2 (approximately 48 hours later). magnesium sulfate 2 g in water 50 ml IVPB 2 g, Intravenous, CONDITIONAL, Electroly te Replacement, if serum magnesium is less than 1.6 and patient is unable to take oral magnesium., Starting Sun04/30/19 at 193, Administer over 4 hours. Give DAVE RY 4 HOURS X 2 DOSES when conditions are met. RN to NOTIFY Pharmacy to place scheduled medication order IF CONDITIONS are met. If replacement is given pharmacy to recheck serum magnesium the following morning and replace as needed. magnesium sulfate 2 g in water 50 ml IVPB(Linked Group 1) 2 g, Intravenous, CONDITIONAL, Electroly te Replacement, if serum magnesium is less than 1.6 and patient IS ABLE to take oral magnesium., Starting 04/30/19 at 193, Administer over 4 hours. Give ONCE when conditions are met. (GIVE BOTH IV A ND PO REPLACEMENT) RN to NOTIFY Pharmacy to place scheduled medication order IF CONDITIONS are met. If replacement is given pharmacy to recheck serum magnesium the following morning and replace as needed. magnesium sulfate 2 g in water 50 ml IVPB 2 g, Intravenous, CONDITIONAL, Electroly te Replacement, if serum magnesium is 1.6-1.8 AND patient is unable to take oral magnesium., Starting 04/30/19 at 1935, Administer over 4 hours. GIVE ONCE if c onditions are met. RN to NOTIFY Pharmacy to place scheduled medication order IF CONDITIONS are met. If replacement is given pharmacy to recheck serum magnesium the following morning and replace as needed. melatonin tablet 3 mg 2116 (Given - Provider: Tavares guadalupe RN) 2141 (Given - Provider: Tavares Thomas RN) 3 mg, Oral, HS PRN, Other, Mild insomnia, Starting 04/30/19 a t 1935 ondansetron (ZOFRAN) injection 4 mg 4 mg, Intravenous, Q4H PRN, Nausea, Vomiting, Starting Wed at 1935 polyvinyl alcohol (ARTIFICIAL TEARS) 1.4 % ophthalmic solution 1 Drop 1 Drop, Both Eyes, Q1H PRN, Dry Eyes, Itchy Eyes, Starting W ed 04/30/19 at 193 senna (SENOKOT) tablet 1 Tablet 1 Tablet, Oral, DAILY PRN, Constipation, Mild Constipation, Starting 04/30/19 at 193, Mild constipation sodium chloride (OCEAN) 0.65 % nasal solution 1 Norton 1 Norton, Both Nostrils, Q2H PRN, Dry Nose, Starting 04/30/19 at 1935 sodium chloride 0.9% injection 10-60 mL 1438 (Given - Provider: Renetta Flannery, MARIO) 10-60 mL, Intravenous, PRN, Line Patency , Line Care, Starting Sun04/30/19 at 2120, For an INT flush, flush with at least 10 mL. For PICC (including Power Injectable PICC), flush with 10 mL. For Port-a-C ath, flush with a minimum of 10mL. For H ickman, flush with a minimum of 10 mL. For jugular, subclavian, femoral central lines, flush with a minimum 10 mL. For additional information about flushing proce sses, reference the Vascular Access Device Users Guide. Linked Groups Order Group 1: magnesium sulfate 2 g in water 50 ml IVPBJump to med 2 g, Intravenous, CONDITIONAL, Electroly te Replacement, if serum magnesium is less than 1.6 and patient IS ABLE to take oral magnesium., Starting Sun04/30/19 at 1936
Administer over 4 hours.&am p;nbsp;Give ONCE when conditions are met . (GIVE BOTH IV AND PO REPLACEMENT) RN to NOTIFY Pharmacy to place scheduled medication order IF CONDITIONS are met. If replacement is given pha rmacy to recheck serum magnesium the fol lowing morning and replace as needed.
And magnesium oxide-amino acids (KP-ZNYT-DDOQZXN) tablet 2 TabletJump to med 2 Tablet, Oral, CONDITIONAL, Other, if s teo magnesium is less than 1.6 and patient IS ABLE to take oral magnesium., Starting Sun04/30/19 at 1936
Give 2 tablets EVERY 4 HOURS WHILE AWAKE x 4 do ses when conditions are met. (GIVE BOTH IV AND PO REPLACEMENT) RN to NOTIFY Pharmacy to place scheduled medication order IF CONDITIONS are met. If replacement is given pharmacy to rech emy serum magnesium the following mornin g and replace as needed.
documented in this encounter Care Teams Water Service Supervisor Relationship Specialty Start Date End Date Sheeba Castillo, BANDER AND CELLOPHANER MACHINE, INSPECTOR WIRE PRODUCTS PCP - General Nurse Practitioner 07/20/16 [id number] [place] MAGDALENA Dinh [id number] documented as of this encounter
--- OUTSIDE RECORDS SUMMARY | 2022-03-20 16:10 | XMS_ITS | Encounter Summary ---
:1975 Author Organization [employer] Address [address], [place] [address] Care Team Providers Name Role Phone Sheeba Castillo APRN, CNP Primary Care Provider [phone] Reason for Visit Reason Comments Follow-up Encounter Details Date Type Department Care Team Description 04/30/2019 Office Visit Faye Deleon, Ulcerative pancolitis with rectal bleeding (HRC) (Primary Dx); G[facility] Immunosuppressed status (HRC) [address] [place] [address], [address] [place] [address] [phone] Social History Tobacco Use Types Packs/Day Years [...] at Date Recorded Female 05/09/2021 7:19 PM PURCHASING ADMINISTRATOR documented as of this encounter Last Filed Vital Signs Vital Sign Reading Time Taken Comments Blood Pressure 161/81 04/30/2019 2:55 PM PURCHASING ADMINISTRATOR Pulse 108 04/30/2019 2:55 PM PURCHASING ADMINISTRATOR Temperature - - Respiratory Rate 16 04/30/2019 2:55 PM PURCHASING ADMINISTRATOR Oxygen Saturation - - Inhaled Oxygen Concentration - - Weight 82.6 kg (182 lb) 04/30/2019 2:55 PM PURCHASING ADMINISTRATOR Height - - Body Mass Index 29.38 02/12/2019 3:37 PM CDT documented in this encounter Patient Instructions Patient InstructionsFaye Hinojosa APRN, CNP - 04/30/2019 2:50 PM CST I'm so sorry you have been feeling so poorly, Idania. Recommend we admit you to the hospital for fluids, IV steroids, and potentially Remicade. As you arenot getting better on prednisone, I think hospitalization is advised. I will write a letter for you for work. HASING ADMINISTRATOR documented in this encounter Progress Notes Faye Hinojosa APRN, CNP - 04/30/2019 2:50 PM CST GI Clinic Follow Up - IBD Patient: Idania Duarte : 1975 MR#: [id number] [facility]#: [id number] Date of Visit: 04/30/19 Reason for visit: Ulcerative colitis IBD Data Idania Duarte is a 43-year-old woman who presents for followup of ulcerative [...] intermittently right now ?c. Topical steroids: proctofoam ?d. Corticosteroids: prednisone multi week course at [...] active colitis in the recto sigmoid colon Prior surgery: no surgery? HPI: Idania returns [...] well on rectal therapy + Lialda. In 2017, struggled with clostridium difficile infection and UC flare. Since 2017, had been treated with Lialda and cholestyramine (for overlapping IBS). She sent a Belly message on 01/29/19 noting increased flare symptoms on and off. This included frequent BMs, tenesmus, rectal bleeding, [...] however she preferred to avoid infusions. Subsequently these allergens was requested at 10 mg twice daily from her insurer and this was approved. Unfortunately, Idania never had any improvement after starting Xeljanz. She took this for 2 months at10 mg twice daily and her symptoms worsened. She estimates restarting prednisone on her own approximately a month ago. She has been on 40- 50 mg every day for 1 month. Despite high-dose prednisone, her symptoms worsened. Laboratory studies on April 24 included normal LFTs and CRP. Her CBC however noted an increased white blood cell count of 20,000. C diff toxin and enteric stool pathogen panel on April 25 were both negative for infection. A fecal calprotectin was elevated at 181. She requested Lialda, reviewed that as she was feeling steroids I did not feel Lialda would be effective. I did send this in for her but advised ER given her worsening symptoms despite oral prednisone. She did not present to the ER over the weekend and presents today for follow-up. Idania is not doing well. She is tearful today. She is in the bathroom all day long. She is having multiple accidents. She estimates going every 10-15 minutes. Often times she will just pass blood and mucus. She is up at night stooling. She is scared to go to work because of having to stop to have a bowel movement. She has associated mild abdominal cramping. She feels very anxious about her symptoms. Current lead she is taking prednisone 40 mg daily, Canasa suppositories nightly, and Lialda 4 times daily. She is at a loss with to do next. She denies any current extraintestinal manifestations of IBD such as joint pains, oral ulcerations, skin rashes or lesions, or iritis/uveitis. Current Medications: Outpatient Medications Prior to Visit [...] daily at bedtime. 30 Suppository 11 ??? mesalamine (LIALDA) 1.2 [...] capsule Take 1 Capsule by mouth daily. 90 Capsule 1 ??? predniSONE (DELTASONE) 10 MG tablet 4 tabs daily for 1 wk, 3 tabs daily for 1 wk, 2 tabs daily for 1 wk, 1.5 tabs daily for 1 wk, 1 tab daily for 1 wk, 1/2 tab daily for 1 wk 84 Tablet 0 ??? topiramate (TOPAMAX) 25 MG tablet Take 1 Tablet by mouth daily at bedtime. 90 Tablet 3 ??? triamterene-hydrochlorothiazide (MAXZIDE-25) 37.5-25 MG tablet TAKE 1 TABLET BY MOUTH DAILY. 90 Tablet 3 No facility-administered medications prior to visit. Inflammatory Markers: Lab Results Component Value Date C-Reactive Protein <0.5 04/24/2019 C-Reactive Protein <0.5 02/20/2019 C-Reactive Protein 1.7 (H) 01/30/2019 CRP 1.4 (H) 02/13/2018 CRP 1.7 (H) 01/03/2017 CRP 1.6 (H) 10/12/2016 Lab Results Component Value Date Calprotectin Fecal <16 01/04/2017 Fecal Calprotectin 181 (H) 04/25/2019 Lab Results Component Value Date Sedimentation Rate 12 01/03/2017 Sedimentation Rate 18 10/12/2016 Sedimentation Rate 19 04/02/2015 Sedimentation Rate 14 02/28/2008 Sedimentation Rate 3 09/27/2001 Last colonoscopy: - Date: 09/22/15 - Findings: inflammation from the anus to the rectum secondary to ulcerative proctitis, patchy mildinflammation in cecum and appendiceal orifice, one 3mm polyp in distal sigmoid colon - Histology: mildly active cryptitis in cecum/periappendiceal orifice, mildly active chronic colitis in the rectum, polyp was a tubular adenoma IBD Quality Indicators 1. Tobacco Use: No [...] Formulation 08/09/2001 ??? Influenza IIV4 (Quadrivalent) 0.5mL (75369) 03/23/2014, 03/24/2015, 03/23/2016, 03/26/2017, 03/21/2018, 03/22/2018, 03/31/2019 ??? TDAP (ADACEL) 07/04/2010 ??? Td 11/30/2003 ??? Zoster RZV (Shingrix) 03/14/2019 5. Was patient hospitalized for any reason during the past year? No - If Yes, did patient receive prophylaxis for DVT? NA - If Yes, did patient have diarrhea during the hospitalization? NA - If Yes, was patient tested for C. Difficile? NA 6. TPMT: Lab Results Component Value Date TPRBR 24.2 07/26/2016 O: BP (!) 161/81 (BP Location: Left Arm, BP Cuff Size: Large) Pulse (!) 108 Resp 16 Wt 182 lb (82.6 kg) BMI 29.38 kg/m?? GEN: Well appearing female, NAD EYES: sclerae are anicteric EXT: No cyanosis, clubbing, or edema PSYCH: A&Ox3, mood and affect are appropriate LABS: Lab Results Component Value Date WBC 20.5 (H) 04/24/2019 RBC 4.44 04/24/2019 Hemoglobin 13.7 04/24/2019 HCT 41.7 04/24/2019 Platelets 372 04/24/2019 Lab Results Component Value Date Alkaline Phosphatase 50 04/24/2019 Bilirubin, Total 0.2 04/24/2019 Bilirubin, Direct 0.1 04/24/2019 Protein, Total 6.7 04/24/2019 Albumin 3.5 04/24/2019 AST (SGOT) 21 04/24/2019 ALT (SGPT) 30 04/24/2019 Lab Results Component Value Date Creatinine 0.70 01/30/2019 Lab Results Component Value Date Vitamin B12 905 04/02/2015 Lab Results Component Value Date HBSAG Nonreactive 07/26/2016 HBAB Reactive 07/26/2016 HBAB >1,000 07/26/2016 HEPCAB Non-React 03/24/2015 ASSESSMENT: 1. Ulcerative colitis, currently flaring 2. Immunosuppressed status on prednisone Originally diagnosed with mild IBD and ulcerative proctitis, which was previously management with asneeded Canasa suppositories. However, since January she has struggled with severe flare symptoms. Recent flex sig showing active disease to transverse colon, worse distally. CT with evidence of left-sided colitis. Given her desire to avoid IV infusions and anti TNF such, we elected to start Xeljanz in late January. She was treated with 10 mg b.i.d. for at least 2 months and had no symptomatic relief whatsoever. In fact her symptoms have progressively worsened. She has been on prednisone at 40 mg daily for a month now, and is not getting any better. I reviewed with Idania that I think we need to admit her to the hospital. I think she needs IV steroids, IV fluids and likely rescue Remicade. Confounding this is her history of an atypical melanocytotic lesion on her trunk in 2008. This was completely removed. Normally, would steer away from anti TNF agents in the with a history of possible melanoma however at this point time I think benefit out would outweigh risk. Would welcome GI consult opinion on this in the hospital. Entyvio is considered, however given the severity of her symptoms I am not sure we have time to wait for this to work. That said, if she rebounds with IV steroids in the hospital this could be considered as an outpatient. I have discussed with on-call hospitalist, who agreed to accept on admission. Recommend methylprednisolone 20 mg t.i.d. to start. GI team will see her tomorrow. I have reviewed the case with on-call GIMD Dr. Mcmanus. Follow-up will be determined after her hospitalization pending improvement in her symptoms. PLAN: As above Admit to for UC flare, failing outpatient steroids Treatment plan and follow up discussed with the patient and documented in the AVS. Total time spent with patient was 40 minutes, of which 30 minutes were spent consulting patient on condition, treatment, and plan of care. HASING ADMINISTRATOR documented in this encounter Plan of Treatment Upcoming Encounters Date Type Specialty Care Team Description 05/05/2022 Appointment Chemo Therapy/Infusion Services 09/15/2022 Telemedicine Gastroenterology Eusebio Haines MD [address] [place], [place] [address] (Wo rk) documented as of this encounter Visit Diagnoses Diagnosis Ulcerative pancolitis with rectal bleedi ng (HRC) - Primary Immunosuppressed status (HRC) Unspecified disorder of immune mechanism documented in this encounter Care Teams Pants Maker Relationship Specialty Start Date End Date Sheeba Castillo APRN, DUAL RATE DEALER PCP - General Nurse Practitioner 07/20/16 [address] [place] MAGDALENA Dinh [phone] documented as of this encounter
--- OUTSIDE RECORDS SUMMARY | 2022-03-20 16:10 | XMS_ITS | Encounter Summary ---
:1975 Author Organization [employer] Address [address], [place] [address] Care Team Providers Name Role Phone Sheeba Castillo APRN, SPIRAL WEAVER Primary Care Provider [phone] Reason for Visit Reason Comments RESULTS, TEST Encounter Details Date Type Department Care Team Description 04/24/2019 Telephone Specialty [facility] [address] A PRN, RESULTS, TEST Gastroenterology SPIRAL WEAVER [address] [place], [place] [id number] [phone] [place], [place] [phone] (Wo rk) Social History Tobacco Use Types [...] at Date Recorded Female 05/09/2021 7:19 PM TENTER documented as of this encounter Nursing Notes Charles Duran RN - 04/25/2019 3:25 PM CDT I spoke with patient, she turned in stool specimen's today. She called in sick to work today. She feels slightly better and does not want to be admitted to hospital at this time. She has an appointment on Sunday. Informed her that if she gets any sicker over the weekend to go to ER. Faye Hinojosa APRN, CNP - 04/24/2019 4:12 PM CDT Sent her Lialda in for her, but as she is failing outpatient steroids I don't think it is likely lico of benefit. Agree with calling tomorrow, if no improvement, suggest ER. I am not here tomorrow and will be away from [facility], but again if she is failing outpatient prednisone may need admit for IV steroids. Charles Duran RN - 04/24/2019 4:05 PM CDT Spoke with patient and gave her the message from Faye Hinojosa HISTOLOGIST TECHNOLOGIST. She has stopped the Celjanz. She did restart her Lialda (says I felt like I had to be on something) but only has a weeks worth left so if want her to continue Lialda will need refill. Pharmacy verified. Brought up with her about possible admission. Requested she call again tomorrow with update. Faye Hinojosa APRN, CNP - 04/24/2019 3:45 PM CDT Elevated WBC may be due to prednisone 40mg daily. Given the severity of her symptoms and lack of improvement, she may need to present to [facility] for IV steroids +/- inpatient rescue Remicade. I would suggest this if she is not getting any better despite 40mg prednisone daily. Dayana Jauregui RN - 04/24/2019 3:35 PM CDT Pt contacted, given msg below, states understanding. Will get stools in [place]. States she started back on prednisone at 40 mg's when she started the Xeljanz on Mar 02 because she was bleeding so much.There has been absolutely no improvement in her symptoms, she remains on the prednisone 40 mg's per day. She has not tried to taper as her symptoms continue to worsen instead of improve. Charles Duran RN - 04/24/2019 3:28 PM CDT Left message for patient to call GI clinic back for a message. Faye Hinojosa APRN, CNP - 04/24/2019 3:11 PM CDT Idania's lab show a markedly elevated white blood cell count. This could be related to her IBD and known flare, but cannot exclude that this is infection. Stool studies have been ordered, and she shouldreturn them OSMANY. Is she on prednisone currently? Or has she tapered off? If symptoms worsen this weekend + fevers, would have low threshold to be seen in ER. documented in this encounter Plan of Treatment Upcoming Encounters Date Type Specialty Care Team Description 05/05/2022 Appointment Chemo Therapy/Infusion Services 09/15/2022 Telemedicine Gastroenterology Eusebio Haines MD [address] [place], [place] [address] (Wo rk) documented as of this encounter Visit Diagnoses Not on filedocumented in this encounter Care Teams Convention Services Director Relationship Specialty Start Date End Date Sheeba Castillo APRN, SPIRAL WEAVER PCP - General Nurse Practitioner 07/20/16 [id number] [place] MAGDALENA Dinh [phone] documented as of this encounter
--- OUTSIDE RECORDS SUMMARY | 2022-03-20 16:10 | XMS_ITS | Encounter Summary ---
:1975 Author Organization [employer] Address [address] [place] [address] Care Team Providers Name Role Phone Sheeba Castillo APRN, SIERRA Primary Care Provider [phone] Reason for Visit Reason Comments Refill triamterene-hydrochlorothiaz enedelia (MAXZIDE-25) 37.5-25 MG tablet [Pharmacy Med Name: TRIAMT-HCTZ 37.5-25MG TABS] Encounter Details Date Type Department Care Team Description 03/11/2019 Refill [facility] Iggy Hernandez MD Refill Medicine [address] [place] [address] Dr Reyna (triamterene-hydrochloro [address] [place], [place] thiazide (MAXZIDE-25) [place] [address] 37.5-25 MG tablet [phone] (Wo rk) [Pharmacy Med Name: TRIAMT-HC TZ 37.5-25MG TABS]) Social History Tobacco Use Types Packs/Day Years [...] at Date Recorded Female 05/09/2021 7:19 PM 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 Requested Prescriptions Pending Prescriptions Disp Refills triamterene-hydrochlorothiazide (MAXZIDE-25) 37.5-25 MG tablet [Pharmacy Med Name: TRIAMT-HCTZ 37.5-25MG TABS] 90 Tablet 3 Sig: TAKE 1 TABLET BY MOUTH DAILY. Interface, Out Surescripts Prov Query - 03/11/2019 3:00 PM CDT triamterene-hydrochlorothiazide (MAXZIDE-25) 37.5-25 MG tablet [Pharmacy Med Name: TRIAMT-HCTZ 37.5-25MG TABS] Medication started: 05/26/2013 Last ordered by IGGY HERNANDEZ (449 days ago) QTY: 90, Refills: 3, Sig: take 1 tab by mouth daily. (changed but equivalent) -> K is abnormal (3.4 mEq/L lies outside 3.5 mEq/L - 5.9 mEq/L) -> Refill x 12 months, qty: 90, refills: 3 (until due for an office visit) Last qualifying visit: 12/19/2018 (with IGGY HERNANDEZ) Next scheduled visit: None SBP: 134 mm Hg on 12/19/2018 DBP: 74 mm Hg on 12/19/2018 Cr: 0.7 mg/dL on 01/30/2019 Na: 137 mEq/L on 01/30/2019 K: 3.4 mEq/L on 01/30/2019 Powered by [employer], Reference: [id number], 03/11/2019 3:00:30 PM CDT, Pool: LIRIANO CARMELITA ELISE ([id number]) documented in this encounter Plan of Treatment Upcoming Encounters Date Type Specialty Care Team Description 05/05/2022 Appointment Chemo Therapy/Infusion Services 09/15/2022 Telemedicine Gastroenterology Eusebio Haines MD [address] [place], [place] [phone] (Wo rk) documented as of this encounter Visit Diagnoses Diagnosis Essential hypertension (HRC) Unspecified essential hypertension documented in this encounter Care Teams Report Developer Relationship Specialty Start Date End Date Sheeba Castillo, DOCUMENT IMPROVEMENT SPECIALIST, SORTER PACKER PCP - General Nurse Practitioner 07/20/[address] [place] [id number] documented as of this encounter
--- OUTSIDE RECORDS SUMMARY | 2022-03-20 16:10 | XMS_ITS | Encounter Summary ---
:1975 Author Organization [employer] Address [address] [place] [address] Care Team Providers Name Role Phone Sheeba Castillo APRN, CNP Primary Care Provider [phone] Encounter Details Date Type Department Care Team Description 04/24/2019 Lab Visit [facility] Routine general medical exam ination at health care facility (Primary Dx); [address] [facility] Ulcerative chronic pancoliti s without complications (HRC); [place] [address] Ulcerative pancolitis with r ectal bleeding ([facility]) [phone] Social History Tobacco Use Types Packs/Day Years [...] Date Recorded Female 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 CBC AND DIFFERENTIAL Routine 04/24/2019 12:49 Ulcerative chron ic Results for this PANEL PM CDT pancolitis without procedure are in complications (HRC) the resu lts section. LIPID PANEL AND Routine 04/24/2019 12:49 Ulcerative chronic Re sults for this DIRECT LDL(IF NEEDED) PM CDT pancolitis without procedure are in complications (HRC) the resu lts section. COMPLETE BLOOD Routine 04/24/2019 12:49 Ulcerative chronic Res ults for this COUNT-W/DIFF PM CDT pancolitis without procedure are in complications (HRC) the resu lts section. LIVER PANEL(HEPATIC Routine 04/24/2019 12:49 Ulcerative chroni c Results for this FUNCTION PANEL) PM CDT pancolitis without proced ure are in complications (HRC) the resu lts section. C-REACTIVE PROTEIN Routine 04/24/2019 12:49 Ulcerative chronic Results for this PM CDT pancolitis without procedure are in complications (HRC) the resu lts section. CONTAINER TEST Routine 04/24/2019 12:44 Routine general Result s for this PM CDT medical examination procedur e are in at health care the results facility section. documented in this encounter Results Morphology-RBC and Platelet (04/24/2019 12:49 PM CDT) [facility] gist Method Time Signature RBC Morphology Reviewed 04/24/2019 [place] 1:55 PM CDT LABORATORY Platelet Estimate Adequate Adequate 04/24/2019 [place] 1:55 PM CDT LABORATORY Target Cells 04/24/2019 [place] 1:55 PM CDT LABORATORY Toxic Granulation 04/24/2019 [place] 1:55 PM CDT LABORATORY [facility] [place] Bodies 04/24/2019 [place] 1:55 PM CDT LABORATORY Spherocytes 04/24/2019 [place] 1:55 PM CDT LABORATORY Polychromasia 04/24/2019 [place] 1:55 PM CDT LABORATORY Acanthocytes 04/24/2019 [place] 1:55 PM CDT LABORATORY Basophilic Stippling 04/24/2019 [place] 1:55 PM CDT LABORATORY [place] Cells 04/24/2019 [place] 1:55 PM CDT LABORATORY Elliptocytes 04/24/2019 [place] 1:55 PM CDT LABORATORY Ovalocytes 04/24/2019 [place] 1:55 PM CDT LABORATORY Rouleaux 04/24/2019 [place] 1:55 PM CDT LABORATORY Tear Drop Cells 04/24/2019 [place] 1:55 PM CDT LABORATORY Dohle Bodies 04/24/2019 [place] 1:55 PM CDT LABORATORY Hypogranular Neuts 04/24/2019 [place] 1:55 PM CDT LABORATORY Hypersegmented 04/24/2019 [place] Neutrophils 1:55 PM CDT LABORATORY Reactive Lymphoctes 04/24/2019 [facility] Smudge Cells 04/24/2019 [place] 1:55 PM CDT LABORATORY Vaculated Neutrophils 04/24/2019 [place] 1:55 PM CDT LABORATORY Left Shift Detected 04/24/2019 [place] 1:55 PM CDT LABORATORY RBC Agglutination 04/24/2019 [place] 1:55 PM CDT LABORATORY Bite Cells 04/24/2019 [place] 1:55 PM CDT LABORATORY Agranular Platelets 04/24/2019 [facility] PM CD[facility] Giant Platelets 04/24/2019 [place] 1:55 PM CDT LABORATORY Bilobed Neutrophils 04/24/2019 [facility] 1:[facility] PM CDT [facility] Sickle Cells 04/24/2019 [place] 1:55 PM CDT LABORATORY Laura Rods 04/24/2019 [place] 1:55 PM CDT LABORATORY Atypical Lymphocyte 04/24/2019 [place] 1:55 PM CDT LABORATORY Micromegakaryocyte 04/24/2019 [place] 1:55 PM CDT LABORATORY RBC parasite 04/24/2019 [place] inclusions present 1:55 PM CDT LABORATOR Y WBC organism 04/24/2019 [place] inclusions present 1:55 PM CDT LABORATOR Y Schistocytes 04/24/2019 [place] 1:55 PM CDT LABORATORY Dimorphic Population 04/24/2019 [place] 1:55 PM CDT LABORATORY Large Platelets 04/24/2019 [place] 1:55 PM CDT LABORATORY Specimen Anatomical Collection Method / Collection Time Recei peña Time (Source) Location / Volume Laterality Blood Venipuncture / 04/24/2019 12:49 9 Unknown PM CDT 12:49 PM CDT Faye Felton APRN, CNP LAB_1 Performing Organization Address City/State/ZIP Code Phon e Number [facility] [address] [place] [phone] (ABNORMAL) Complete Blood Count-W/Diff (04/24/2019 12:49 PM CDT) [facility] Method Time Signature WBC 20.5 (H) 3.5 - 10.5 04/24/2019 [place] x10(9)/L 2:07 PM CDT LABORATORY RBC 4.44 3.90 - 04/24/2019 [place] 5.03 2:07 PM CDT LABORATORY x10(12)/L Hemoglobin 13.7 12.0 - 04/24/2019 [place] 15.5 g/dL 2:07 PM CDT LABORATORY HCT 41.7 34.9 - 04/24/2019 [place] 44.5 % 2:07 PM CDT LABORATORY MCV 93.9 80.0 - 04/24/2019 [place] 100.0 fL 2:07 PM CDT LABORATORY MCH 30.9 27.6 - 04/24/2019 [place] 33.3 pg 2:07 PM CDT LABORATORY MCHC 32.9 31.5 - 04/24/2019 [place] 35.2 g/dL 2:07 PM CDT LABORATORY RDW 13.1 11.9 - 04/24/2019 [place] 15.5 % 2:07 PM CDT LABORATORY Platelets 372 150 - 450 04/24/2019 [place] x10(9)/L 2:07 PM CDT LABORATORY Automated NRBC 0 <=0 /100 04/24/2019 [place] WBC 2:07 PM CDT LABORATORY Neutrophil 12.6 (H) 1.7 - 7.0 04/24/2019 [place] Absolute 10(9)/L 2:07 PM CDT LABORATORY Lymphocyte 6.8 (H) 1.0 - 4.8 04/24/2019 [place] Absolute 10(9)/L 2:07 PM CDT LABORATORY Monocytes 0.7 0.2 - 0.9 04/24/2019 [place] Absolute 10(9)/L 2:07 PM CDT LABORATORY Eosinophil 0.1 0.0 - 0.5 04/24/2019 [place] Absolute 10(9)/L 2:07 PM CDT LABORATORY Basophil 0.1 0.0 - 0.3 04/24/2019 [place] Absolute 10(9)/L 2:07 PM CDT LABORATORY Immature Gran % 1.0 (H) 0.0 - 0.5 04/24/2019 [place] % 2:07 PM CDT LABORATORY Specimen Anatomical Collection Method / Collection Time Recei peña Time (Source) Location / Volume Laterality Blood Venipuncture / 04/24/2019 12:49 9 Unknown PM CDT 12:49 PM CDT Faye Felton APRN, CNP LAB_1 Performing Organization Address [facility] Code Phon e Number [facility] [address] [place], [place] [phone] (ABNORMAL) Lipid Panel - LDLD If Trig High (04/24/2019 12:49 PM CDT) [facility] Method Time Signature Cholesterol 192 0 - 199 04/24/2019 [place] mg/dL 2:52 PM CDT LABORATORY Triglyceride 173 (H) <=149 04/24/2019 [place] mg/dL 2:52 PM CDT LABORATORY HDL Cholesterol 78 >=40 04/24/2019 [place] mg/dL 2:52 PM CDT LABORATORY LDL, Calculated 79 <130 04/24/2019 [place] mg/dL 2:52 PM CDT LABORATORY Non HDL Chol, 114 mg/dL 04/24/2019 [place] Calculated 2:52 PM CDT LABORATORY Cholesterol/HDL 2.5 04/24/2019 [place] Ratio 2:52 PM CDT LABORATORY Hours Fasting 1 04/24/2019 [place] 2:52 PM CDT LABORATORY Specimen Anatomical Collection Method / Collection Time Recei peña Time (Source) Location / Volume Laterality Blood Venipuncture / 04/24/2019 12:49 9 Unknown PM CDT 12:49 PM CDT Faye Felton APRN, CNP LAB_1 Performing Organization Address [facility]/ZIP Code Phon e Number [facility] [address] [place], [place] [phone] C Reactive Protein (04/24/2019 12:49 PM CDT) P athologist Signature C-Reactive <0.5 0.0 - 0.7 04/24/2019 [place] Protein mg/dL 2:52 PM CDT LABORATORY Specimen Anatomical Collection Method / Collection Time Recei peña Time (Source) Location / Volume Laterality Blood Venipuncture / 04/24/2019 12:49 9 Unknown PM CDT 12:49 PM CDT Faye Felton APRN, CNP LAB_1 Performing Organization Address [facility] Phon e Arian [place] [facility] [address] [place], [place] [phone] Hepatic Function Panel (04/24/2019 12:49 PM CDT) athologist Signature Alkaline 50 40 - 150 04/24/2019 [place] Phosphatase U/L 2:52 PM CDT LABORATORY Bilirubin, Total 0.2 0.2 - 1.2 04/24/2019 [place] mg/dL 2:52 PM CDT LABORATORY Bilirubin, 0.1 0.0 - 0.5 04/24/2019 [place] Direct mg/dL 2:52 PM CDT LABORATORY AST (SGOT) 21 10 - 40 04/24/2019 [place] U/L 2:52 PM CDT LABORATORY ALT (SGPT) 30 0 - 55 U/L [facility]24/2019 [facility] Protein, Total 6.7 6.4 - 8.3 04/24/2019 [place] g/dL 2:52 PM CDT LABORATORY Albumin 3.5 3.5 - 5.0 04/24/2019 [place] g/dL 2:52 PM CDT LABORATORY Specimen Anatomical Collection Method / Collection Time Recei peña Time (Source) Location / Volume Laterality Blood Venipuncture / 04/24/2019 12:49 9 Unknown PM CDT 12:49 PM CDT Faye Felton APRN, CNP LAB_1 Performing Organization Address [facility] Phon e A[facility] [address] [place], [place] [phone] CONTAINER TEST (04/24/2019 12:44 PM CDT) P athologist Signature Container Done 04/24/2019 [place] Given 2:00 PM CDT LABORATORY Specimen Anatomical Collection Method Collection Time Receive d Time (Source) Location / / Volume Laterality Other Specimen 04/24/2019 12:44 9 Type PM CDT 12:47 PM CDT Faye Felton APRN, CNP LAB_1 Performing Organization Address City/State/ZIP Code Phon e Number [facility] [address] [facility] [place] [phone] documented in this encounter Visit Diagnoses Diagnosis Routine general medical examination at [facility] facility - Primary Routine general medical examination at [facility] facility Ulcerative chronic pancolitis without co mplications (HRC) [place] ulcerative (chronic) colitis Ulcerative pancolitis with rectal bleedi ng (HRC) documented in this encounter Care Teams Customer Service Rep Relationship Specialty Start Date End Date Sheeba Castillo APRN, ELECTROMECHANICAL TECHNICIAN PCP - General Nurse Practitioner 07/20/16 [address] [address] [place] [address] documented as of this encounter
--- OUTSIDE RECORDS SUMMARY | 2022-03-20 16:10 | XMS_ITS | Encounter Summary ---
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 COMPLETE BLOOD Routine 12/19/2018 4:30 PM Well adult exam Resu lts for this COUNT-W/DIFF CDT procedure are i n the results section. TSH, SENSITIVE (WITH Routine 12/19/2018 4:30 PM Well adult exa m Results for this REFLEX) CDT procedure are i n the results section. HGB A1C Routine 12/19/2018 4:30 PM Well adult exam Result s for this CDT procedure are i n the results section. documented in this encounter Results Complete Blood Count-W/Diff (12/19/2018 4:30 PM CDT) P athologist Signature WBC 8.3 3.5 - 10.5 12/19/2018 [place] x10(9)/L 4:34 PM CDT LABORATORY RBC 4.51 3.90 - 12/19/2018 [place] 5.03 4:34 PM CDT LABORATORY x10(12)/L Hemoglobin 13.7 12.0 - 12/19/2018 [place] 15.5 g/dL 4:34 PM CDT LABORATORY HCT 41.2 34.9 - 12/19/2018 [place] 44.5 % 4:34 PM CDT LABORATORY MCV 91.4 80.0 - 12/19/2018 [place] 100.0 fL 4:34 PM CDT LABORATORY MCH 30.4 27.6 - 12/19/2018 [place] 33.3 pg 4:34 PM CDT LABORATORY MCHC 33.3 31.5 - 12/19/2018 [place] 35.2 g/dL 4:34 PM CDT LABORATORY RDW 12.5 11.9 - 12/19/2018 [place] 15.5 % 4:34 PM CDT LABORATORY Platelets 332 150 - 450 12/19/2018 [place] x10(9)/L 4:34 PM CDT LABORATORY Automated NRBC 0 <=0 /100 12/19/2018 [place] WBC 4:34 PM CDT LABORATORY Neutrophil 4.2 1.7 - 7.0 12/19/2018 [place] Absolute 10(9)/L 4:34 PM CDT LABORATORY Lymphocyte 3.2 1.0 - 4.8 12/19/2018 [place] Absolute 10(9)/L 4:34 PM CDT LABORATORY Monocytes 0.6 0.2 - 0.9 12/19/2018 [place] Absolute 10(9)/L 4:34 PM CDT LABORATORY Eosinophil 0.2 0.1 - 0.5 12/19/2018 [place] Absolute 10(9)/L 4:34 PM CDT LABORATORY Basophil 0.1 0.0 - 0.3 12/19/2018 [place] Absolute 10(9)/L 4:34 PM CDT LABORATORY Immature Gran % 0.1 0.0 - 0.5 12/19/2018 [place] % 4:34 PM CDT LABORATORY Specimen Anatomical Collection Method / Collection Time Recei peña Time (Source) Location / Volume Laterality Blood Venipuncture / 12/19/2018 4:30 12/19/2018 4:30 Unknown PM CDT PM CDT Idania Andrade MD LAB_1 Performing Organization Address City/State/ZIP Code Phon e Number [facility] [address] [place] [phone] TSH with Free T4 (if TSH Abnormal) (12/19/2018 4:30 PM CDT) athologist Signature TSH, Reflex 1.63 0.30 - 4.50 12/19/2018 [place] uIU/mL 10:07 PM CDT LABORATORY Specimen Anatomical Collection Method / Collection Time Recei peña Time (Source) Location / Volume Laterality Blood Venipuncture / 12/19/2018 4:30 12/19/2018 4:30 Unknown PM CDT PM CDT Narrative [facility] - 12/19/2018 10:07 PM CDT Lab will automatically reflex to Free T4 when TSH results are <0.30 uIU/mL or >4.50 mIU/mL. Idania Andrade MD LAB_1 Performing Organization Address City/State/ZIP Code Phon e Number [facility] [address] [place] [address] Hgb A1C (12/19/2018 4:30 PM CDT) athologist Signature Hemoglobin A1C 5.5 <=5.6 % 12/20/2018 [place] 9:23 AM CDT LABORATORY Specimen Anatomical Collection Method / Collection Time Recei peña Time (Source) Location / Volume Laterality Blood Venipuncture / 12/19/2018 4:30 12/19/2018 4:30 Unknown PM CDT PM CDT Idania Andrade MD LAB_1 Performing Organization Address City/State/ZIP Code Phon e Number [facility] [address] [place] [address] documented in this encounter Visit Diagnoses Diagnosis Well adult exam Routine general medical examination at a health care facility documented in this encounter Care Teams Swimmer Relationship Specialty Start Date End Date Sheeba Castillo, RUDY, LAW FIRM CONSULTANT PCP - General Nurse Practitioner 07/20/16 [address] [place] [address] documented as of this encounter
--- OUTSIDE RECORDS SUMMARY | 2022-03-20 16:10 | XMS_ITS | Encounter Summary ---
:1975 Author Organization [employer] Address [address], [place] [address] Care Team Providers Name Role Phone Sheeba Castillo APRN, [employer]PER [employer] Primary Care Provider [phone] Reason for Visit Reason Comments Treatment Plan Encounter Details Date Type Department Care Team Description 04/30/2019 Telephone Specialty [facility] [address] A PRN, Treatment Plan Gastroenterology [employer] 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 Verbalized understanding. RLOCKER MAINTAINER Manfred Azevedo RN - 04/30/2019 3:31 PM CST Bed reservation placed. Call from patient placement. Room is cleaned and ready. If check-in before 7 pm, check in at ground flood admitting. If after 7 pm, check in 1st floor inside ED. Left message to call back with information above. RLOCKER MAINTAINER Faye Hinojosa APRN, SIERRA - 04/30/2019 3:29 PM CST Pt being directly admitted to [facility] from clinic. UC flare, failing outpatient steroids.Called hospitalist pager, spoke with Jaclyn, no last name given. Recommended admit, IV steroids (methylprednisolone 20mg TID), and likely rescue Remicade. Please arrange bed reservation. Thank you! RLOCKER MAINTAINER documented in this encounter Plan of Treatment Upcoming Encounters Date Type Specialty Care Team Description 05/05/2022 Appointment Chemo Therapy/Infusion Services 09/15/2022 Telemedicine Gastroenterology Eusebio Haines MD [address] [place], [place] [address] (Wo rk) documented as of this encounter Visit Diagnoses Not on filedocumented in this encounter Care Teams Building Maintenance Superintendent Relationship Specialty Start Date End Date Sheeba Castillo APRN, [employer] PCP - General Nurse Practitioner 07/20/16 [address] [place] [id number] documented as of this encounter
--- OUTSIDE RECORDS SUMMARY | 2022-03-20 16:10 | XMS_ITS | Encounter Summary ---
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 documented as of this encounter Last Filed Vital Signs Vital Sign Reading Time Taken Comments Blood Pressure - - Pulse 84 12/24/2018 5:03 PM CDT Temperature - - Respiratory Rate - - Oxygen Saturation - - Inhaled Oxygen Concentration - - Weight - - Height - - Body Mass Index - - documented in this encounter Patient Instructions Patient Elin Paul - 12/24/2018 5:10 PM CDT Your next hygiene recall is due: 06/22/2019 YOUR PERSONAL DENTAL RISK REPORT Caries (Tooth Decay) Risk Periodontal (Gum) Disease Risk Oral Cancer Risk low mod high low mod high low elevated ^ ^ ^ Risk Level: MODERATE Risk Factors: Caries (tooth decay) in the last two years. How to Reduce Your Risk: Hygiene recall at 6 to 12 months. Rinse with fluoride rinse once to twice daily at times other than when brushing. Instruction from dental professional on brushing, flossing, and use of oral hygiene products. Risk Level: LOW How to Maintain Your [...] your next visit! Thank you for choosing [facility] documented in this encounter Progress Notes Elin Christopher - 12/24/2018 5:10 PM CDT HYGIENE PROPHY NOTE COLLABORATIVE AGREEMENT: The patient consents to have charting, radiographs and prophylaxis by the dental hygienist performed with the understanding that this care is not a substitute for an examination by a dentist. PRESENTATION: Oral Hygiene: Good Plaque: Generalized, light interproximal Calculus: Localized, light mandibular anterior and posterior buccal Stain: None Bleeding: None Gingival tissue: Normal Mucogingival concerns: Absent ACTIVITIES: Hand scale, Essential selective polishing and Flossed all contacts PATIENT EDUCATION: Caries risk, Periodontal risk, Oral cancer risk and OHI NEXT PLANNED HYGIENE VISIT: Hygiene Prophy with exam Completed dental procedures in this visit ??? PROPHYLAXIS-ADULT RECALL ??? PERIODIC ORAL EVALUATION ??? [id number] --End of Note-- Adelia Montalvo DDS - 12/24/2018 5:10 PM CDT RECALL EXAM NOTE Idania is a 43 y.o. female who presents for Dental Hygiene [...] informed consent was obtained. Recommended Recall Interval: Examination in 6 months : Recall prophy in 6 months. Planned Recall Interval: Examination in 6 months : Recall prophy in 6 months. Next Planned Visit: 6 month recall Fracture line discussed , good jaw position discussed, P{t is aware that she clenches during the day, fracture lines present # 14 and # 30 Completed dental procedures in this visit ??? PROPHYLAXIS-ADULT RECALL ??? PERIODIC ORAL EVALUATION ??? [id number] Adelia Montalvo DDS 12/24/2018, 6:02 PM --End of Note-- documented in this encounter Plan of Treatment Upcoming Encounters Date Type Specialty Care Team Description 05/05/2022 Appointment Chemo Therapy/Infusion Services 09/15/2022 Telemedicine Gastroenterology Eusebio Haines MD [address] [place] [address] (Wo rk) documented as of this encounter Procedures Procedure Name Priority Date/Time Associated Diagnosis Comme nts [id number] Routine 12/24/2018 5:10 PM Routine health CDT maintenance PERIODIC ORAL Routine 12/24/2018 5:10 PM Routine health EVALUATION CDT maintenance PROPHYLAXIS-ADULT Routine 12/24/2018 5:10 PM Routine health RECALL CDT maintenance documented in this encounter Visit Diagnoses Diagnosis Routine health maintenance - Primary Routine [facility] documented in this encounter Care Teams Bowling Teacher Relationship Specialty Start Date End Date Sheeba Castillo, RUDY, HEBREW CANTOR PCP - General Nurse Practitioner 07/20/16 [address] [place] [address] documented as of this encounter
--- OUTSIDE RECORDS SUMMARY | 2022-03-20 16:10 | XMS_ITS | Encounter Summary ---
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 documented as of this encounter Plan of Treatment Upcoming Encounters Date Type Specialty Care Team Description 05/05/2022 Appointment Chemo Therapy/Infusion Services 09/15/2022 Telemedicine Gastroenterology Eusebio Haines MD [address] [place] [address] (Wo rk) documented as of this encounter Visit Diagnoses Diagnosis Ulcerative proctitis with rectal bleedin g (HRC) - Primary documented in this encounter Care Teams Segment Assembler Relationship Specialty Start Date End Date Sheeba Castillo, RUDY, SENIOR MARKETING ASSOCIATE PCP - General Nurse Practitioner 07/20/16 [address] [place] [address] documented as of this encounter"
--- OUTSIDE RECORDS SUMMARY | 2022-03-20 16:10 | XMS_ITS | Encounter Summary ---
:1975 Author Organization [employer] Address [address], [place] [address] Care Team Providers Name Role Phone Sheeba Castillo APRN, CNP Primary Care Provider Reason for Visit Reason Comments Follow-up Encounter Details Date Type Department Care Team Description 02/12/2019 Office Visit Faye Deleon, Left sided ulcerative Gastroenterology [facility] GRANT (chronic) colitis [address] [facility] [address] [facility] (HRC) (Primary Dx) [place] [address] [facility] [address] [place], [place] [address] (Wo rk) Social History Tobacco Use Types [...] at Date Recorded Female 05/09/2021 7:19 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 documented as of this encounter Last Filed Vital Signs Vital Sign Reading Time Taken Comments Blood Pressure 159/83 02/12/2019 3:37 PM CDT Pulse 110 02/12/2019 3:37 PM CDT Temperature - - Respiratory Rate 17 02/12/2019 3:37 PM CDT Oxygen Saturation - - Inhaled Oxygen Concentration - - Weight 78.9 kg (174 lb) 02/12/2019 3:37 PM CDT Height 167.6 cm (5' 6) 02/12/2019 3:37 PM CDT Body Mass Index 28.08 02/12/2019 3:37 PM CDT documented in this encounter Progress Notes Faye Hinojosa, ANIMAL GENETICIST, TRAILER SECTIONS ASSEMBLER - 02/12/2019 3:40 PM CDT GI Clinic Follow Up - IBD Patient: Francesco Duarte : 1975 MR#: [id number] [facility]#: [id number] Date of Visit: 02/12/19 Reason for visit: Ulcerative colitis IBD Data Francesco Duarte is a 43-year-old woman who presents for followup of ulcerative colitis. Inflammatory Bowel Disease History 1. Disease: UC 2. Age at diagnosis: 40 3. Extent: proctitis with more proximal spread recently to left sided disease on flex sig 4. Perianal involvement: no 5. Extraintestinal manifestations: none 6. Prior IBD treatment: ?a.Oral 5 ASA: Lialda ?b. Topical 5 ASA: canasa ?c. Topical steroids: proctofoam ?d. Corticosteroids: prednisone multi week course at diagnosis that induced aremission (2016); recently started 40mg daily prednisone with planned 6 week taper? 7. Current therapy/date: Lialda 4.8g daily, cholestyramine [...] sigmoid colon Prior surgery: no surgery? HPI: Francesco returns to GI clinic today for follow [...] with Lialda and cholestyramine (for overlapping IBS). When I saw her a year ago, doing well. She sent me a [employer] message on 01/29/19 noting increased flare symptoms [...] sided colitis, essentially confirming flex sig findings. Francesco returns to discuss testing and plan for management of her UC. She was started on prednisone 40mg daily and is feeling better. Continues on Lialda 4 per day and using Canasa suppositories nightly.She also takes Questran 4g 1-2 times daily. She denies any current extraintestinal manifestations of [...] tablet Take 4 tablets by mouth daily. 360 Tablet 3 ??? Multiple Vitamin (MULTI-VITAMIN [...] triamterene-hydrochlorothiazide (MAXZIDE-25) 37.5-25 MG tablet Take 1 Tab by mouth daily. 90 Tab3 No facility-administered medications prior to visit. Inflammatory Markers: Lab Results Component Value Date C-Reactive Protein 1.7 (H) 01/30/2019 CRP 1.4 (H) 02/13/2018 CRP 1.7 (H) 01/03/2017 CRP 1.6 (H) 10/12/2016 CRP 0.6 (H) 08/14/2016 CRP 3.8 (H) 07/30/2016 Lab Results Component Value Date Calprotectin Fecal <16 01/04/2017 Lab Results Component Value Date Sedimentation Rate [...] to starting biologic Rx? Yes, negative in 2017 - If Yes, was Hep B status documented prior to starting biologic Rx? Yes, negative in 2017 3. On Prednisone > 10mg / day [...] Formulation 08/09/2001 ??? Influenza IIV4 (Quadrivalent) 0.5mL (29110) 03/23/2014, 03/24/2015, 03/23/2016, 03/26/2017, 03/21/2018, 03/22/2018 ??? TDAP (ADACEL) 07/04/2010 ??? Td 11/30/2003 5. Was patient hospitalized for any reason during the past year? No - If Yes, did patient receive prophylaxis for DVT? NA - If Yes, did patient have diarrhea during the hospitalization? NA - If Yes, was patient tested for C. Difficile? NA 6. TPMT: Lab Results Component Value Date TPRBR 24.2 07/26/2016 O: BP (!) 159/83 (BP Location: Right Arm, BP Cuff Size: Regular) Pulse (!) 110 Resp 17 Ht 5' 6 (1.676 m) Wt 174 lb (78.9 kg) BMI 28.08 kg/m?? GEN: Well appearing female, NAD EYES: sclerae are anicteric EXT: No cyanosis, clubbing, or edema PSYCH: A&Ox3, mood and affect are appropriate LABS: Lab Results Component Value Date WBC 9.4 01/30/2019 RBC 4.58 01/30/2019 Hemoglobin 14.5 01/30/2019 HCT 41.8 01/30/2019 Platelets 352 01/30/2019 Lab Results Component Value Date Alkaline Phosphatase 92 01/30/2019 Bilirubin, Total 0.3 01/30/2019 Bilirubin, Direct 0.1 01/30/2019 Protein, Total 7.7 01/30/2019 Albumin 3.8 01/30/2019 AST (SGOT) 24 01/30/2019 ALT (SGPT) 28 01/30/2019 Lab Results Component Value Date Creatinine 0.70 01/30/2019 Lab Results Component Value Date Vitamin B12 905 04/02/2015 Lab Results Component Value Date HBSAG Nonreactive 07/26/2016 HBAB Reactive 07/26/2016 HBAB >1,000 07/26/2016 HEPCAB Non-React 03/24/2015 ASSESSMENT: 1. 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 However now with increasing symptoms and recent flex sig showing active disease to transverse colon,worse distally. Reviewed with francesco she would benefit from change in management. At this point would recommend biologic therapy. 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 For this reason, we have been reluctant to consider anti-TNF agents in the past. I then suggested Entyvio as a very good option for her. It is gut specific and works well in UC. Sheis desirous to avoid infusions as she doesn't want to have to take time off from work. She then asks about Xeljanz. We reviewed Xeljanz in detail. Recently approved for UC in 2018, usually as a second/third line agent after failing anti-TNFs or other. She would really like to try Xeljanzas the oral dosing is appealing to her. I reviewed risks with her in detail, as well as my impression that this may not be covered by her insurer. Reviewed she will not be able to be on Xeljanz and be , as this is contraindicated. She states she has no plans for kids at this time. Then reviewed she would need Shingrix vaccine prior to starting. Also would get baseline lipid panel and recheck 4-8 weeks after starting. Would start 10mg BID and after 8 weeks if improved reduce to 5mg BID. After extensive discussion on Entyvio vs Xeljanz, patient prefers to try Xeljanz. I will request from her insurer. If denied, we should then try for Entyvio. She would be agreeable in that instance. She will continue Lialda, Canasa, prednisone taper as outlined. Follow up in 2 months, sooner if needed. PLAN: 1. TSPOT, CRP, lipid panel 2. Xeljanz 10mg BID will be requested from her insurer for treatment of severe UC, anti-TNF relatively contraindicated with melanoma hx 3. If insurer denies Xeljanz, would then request Entyvio 4. Needs Shingrix before starting Xeljanz 5. Follow up lipid panel 4-8 weeks after starting Xeljanz 6. Follow up in 2 months documented in this encounter Plan of Treatment Upcoming Encounters Date Type Specialty Care Team Description 05/05/2022 Appointment Chemo Therapy/Infusion Services 09/15/2022 Telemedicine Gastroenterology Eusebio Haines MD [address] [place], [place] [address] (Wo rk) documented as of this encounter Results T SPOT TB Test (02/20/2019 8:21 AM CDT) [facility] Method Time Signature T SPOT TB Negative 02/28/2019 [facility] Result 6:52 PM CDT DIAGNOSTICS LAB Negative 0 02/28/2019 [facility] Control Spot 6:52 PM CDT DIAGNOSTICS LAB Count Panel A Spot 1 02/28/2019 [facility] Count 6:52 PM CDT DIAGNOSTICS LAB Panel B Spot 0 02/28/2019 [facility] Count 6:52 PM CDT DIAGNOSTICS LAB Positive >20 02/28/2019 [facility] Control Spot 6:52 PM CDT DIAGNOSTICS LAB Count Specimen Anatomical Collection Method / Collection Time Recei peña Time (Source) Location / Volume Laterality Blood Venipuncture / 02/20/2019 8:21 02/20/2019 8:21 Unknown AM CDT AM CDT Narrative This result has an attachment that is no t available. Fyae Felton APRN, CNP LAB_1 Performing Organization Address City/[facility] Code Phon e Number RD RHEUMATOLOGY DIAGNOSTICS LAB [address] [place] [address] (ABNORMAL) Lipid Panel - LDLD If Trig High (02/20/2019 8:21 AM CDT) [facility] Method Time Signature Cholesterol 178 0 - 199 02/20/2019 [place] mg/dL 11:40 AM CDT LABORATORY Triglyceride 163 (H) <=149 02/20/2019 [place] mg/dL 11:40 AM CDT LABORATORY HDL Cholesterol 57 >=40 02/20/2019 [place] mg/dL 11:40 AM CDT LABORATORY LDL, Calculated 88 <130 02/20/2019 [place] mg/dL 11:40 AM CDT LABORATORY Non HDL Chol, 121 <=159 02/20/2019 [place] Calculated mg/dL 11:40 AM CDT LABORATORY Cholesterol/HDL 3.1 02/20/2019 [place] Ratio 11:40 AM CDT LABORATORY Hours Fasting 12 02/20/2019 [place] 11:40 AM CDT LABORATORY Specimen Anatomical Collection Method / Collection Time Recei peña Time (Source) Location / Volume Laterality Blood Venipuncture / 02/20/2019 8:21 02/20/2019 8:21 Unknown AM CDT AM CDT Faye Felton APRN, CNP LAB_1 Performing Organization Address City/[facility] Phon e Number [place] [facility] [address] [place] [address] C Reactive Protein (02/20/2019 8:21 AM CDT) P athologist Signature C-Reactive <0.5 0.0 - 0.7 02/20/2019 [facility] Protein mg/dL 11:40 AM CDT LABORATORY Specimen Anatomical Collection Method / Collection Time Recei peña Time (Source) Location / Volume Laterality Blood Venipuncture / 02/20/2019 8:21 02/20/2019 8:21 Unknown AM CDT AM CDT Faye Felton APRN, CNP LAB_1 Performing Organization Address City/State/ZIP Code Phon e Number [place] [facility] [address] [place] [address] documented in this encounter Visit Diagnoses Diagnosis Left sided ulcerative (chronic) colitis (HRC) - Primary Left sided ulcerative (chronic) colitis documented in this encounter Care Teams Landscape Crew Leader Relationship Specialty Start Date End Date Sheeba Castillo APRN, TRAILER SECTIONS ASSEMBLER PCP - General Nurse Practitioner 07/20/16 [address] [place] [address] documented as of this encounter
--- OUTSIDE RECORDS SUMMARY | 2022-03-20 16:10 | XMS_ITS | Encounter Summary ---
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 LIPID PANEL AND Routine 02/20/2019 8:21 AM Left sided Result s for this DIRECT LDL(IF CDT ulcerative (chronic) proced ure are in NEEDED) colitis (HRC) the results section. C-REACTIVE PROTEIN Routine 02/20/2019 8:21 AM Left sided Res ults for this CDT ulcerative (chronic) procedu re are in colitis (HRC) the results section. documented in this encounter Results T SPOT TB Test (02/20/2019 8:21 AM CDT) [email or web address] Method Time Signature T SPOT TB Negative [...] an attachment that is no t available. Faye Felton APRN, SKEIN WINDER LAB_1 Performing Organization Address City/State/ZIP Code Phon e Number [facility] [address] [place] [address] (ABNORMAL) Lipid Panel - LDLD If Trig High (02/20/2019 8:21 AM CDT) [email or web address] Method Time Signature Cholesterol 178 0 - 199 02/20/2019 [facility] mg/dL 11:40 AM CDT LABORATORY Triglyceride 163 (H) <=149 02/20/2019 [facility] mg/dL 11:40 AM CDT LABORATORY HDL Cholesterol 57 >=40 02/20/2019 [facility] mg/dL 11:40 AM CDT LABORATORY LDL, Calculated 88 <130 02/20/2019 [facility] mg/dL 11:40 AM CDT LABORATORY Non HDL Chol, 121 <=159 02/20/2019 [facility] Calculated mg/dL 11:40 AM CDT LABORATORY Cholesterol/HDL 3.1 02/20/2019 [facility] Ratio 11:40 AM CDT LABORATORY Hours Fasting 12 02/20/2019 [facility] 11:40 AM CDT LABORATORY Specimen Anatomical Collection Method / Collection Time Recei peña Time (Source) Location / Volume Laterality Blood Venipuncture / 02/20/2019 8:21 02/20/2019 8:21 Unknown AM CDT AM CDT Faye Felton APRN, CNP LAB_1 Performing Organization Address [facility] Phon e Number [facility] [address] [place], [place] [phone] C Reactive Protein (02/20/2019 8:21 AM CDT) P athologist Signature C-Reactive <0.5 0.0 - 0.7 02/20/2019 [facility] Protein mg/dL 11:40 AM CDT LABORATORY Specimen Anatomical Collection Method / Collection Time Recei peña Time (Source) Location / Volume Laterality Blood Venipuncture / 02/20/2019 8:21 02/20/2019 8:21 Unknown AM CDT AM CDT Faye Felton APRN, CNP LAB_1 Performing Organization Address [facility] e [facility] [address] [place], [place] [phone] documented in this encounter Visit Diagnoses Diagnosis Left sided ulcerative (chronic) colitis (HRC) Left sided ulcerative (chronic) colitis documented in this encounter Care Teams Instructor Knitting Relationship Specialty Start Date End Date Sheeba Castillo APRN, SKEIN WINDER PCP - General Nurse Practitioner 07/20/16 [address] [place] [id number] documented as of this encounter
--- OUTSIDE RECORDS SUMMARY | 2022-03-20 16:11 | XMS_ITS | Encounter Summary ---
:1975 Author Organization [employer] Address [address], [place] [address] Care Team Providers Name Role Phone Sheeba Castillo APRN, SIERRA Primary Care Provider [phone] Reason for Visit Reason Onset Date Comments Refill 01/09/2018 Encounter Details Date Type Department Care Team Description 01/09/[address] 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 Pt may call [phone] if any additional questions. Siria Bai RN - 01/10/2018 8:49 AM CDT From: Idania Duarte To: Idania Andrade MD Sent: 01/09/2018 2:59 PM CDT Subject: Medication Renewal Request Original authorizing provider: MD Idania Huizar would like a refill of the following medications: Phentermine HCl 37.5 MG capsule [Idania Andrade MD] Preferred pharmacy: [facility] [address] [address] Comment: Medication renewals requested in this message routed to other providers: cholestyramine (QUESTRAN) 4 GM/DOSE powder [Faye Hinojosa APRN, SIERRA] documented in this encounter Plan of Treatment Upcoming Encounters Date Type Specialty Care Team Description 05/05/2022 Appointment Chemo Therapy/Infusion Services 09/15/2022 Telemedicine Gastroenterology Eusebio Haines MD [address] [place], [place] [address] (Wo rk) documented as of this encounter Visit Diagnoses Diagnosis Non morbid obesity due to excess calorie s (HRC) documented in this encounter Care Teams General Handling Supervisor Relationship Specialty Start Date End Date Sheeba Castillo APRN, STUD MASTER/MISTRESS PCP - General Nurse Practitioner 07/20/16 [address] [address] [place], [place] [address] documented as of this encounter
--- OUTSIDE RECORDS SUMMARY | 2022-03-20 16:11 | XMS_ITS | Encounter Summary ---
:1975 Author Organization [employer] Address [address] [place] [address] Care Team Providers Name Role Phone Sheeba Castillo APRN, SIERRA Primary Care Provider [phone] Encounter Details Date Type Department Care Team Description 11/23/2017 Refill Order [facility][1] Sheeba Castillo, [facility] FARMER AND GRAZIER, MANAGING MEMBER [address] [place] [address] [place] [address] [phone] (Wo rk) Social History Tobacco Use Types [...] at Date Recorded Female 05/09/2021 7:19 PM PLATEN PRESS OPERATOR documented as of this encounter Nursing Notes Idania Crystal - 11/23/2017 9:41 AM CDT Labs to be addressed at future visit. Interface, Out Et3arraf Query - 11/23/2017 9:34 AM CDT SCHEDULE THE FOLLOWING: - CR BY: Now (Due as of 08/09/2017 for triamterene-hydrochlorothiazide (MAXZIDE- 25) 37.5-25 MG tablet) - K BY: Now (Due as of 08/09/2017 for triamterene-hydrochlorothiazide (MAXZIDE- 25) 37.5-25 MG tablet) - NA BY: Now (Due as of 08/09/2017 for triamterene-hydrochlorothiazide (MAXZIDE- 25) 37.5-25 MG tablet) - LAST QUALIFYING VISIT WITH IGGY HERNANDEZ: 12/14/2016 - NEXT SCHEDULED VISIT IN FAMILY PRACTICE: 12/17/2017 - NEXT LAB APPOINTMENT: None Powered by [employer], Reference: [id number], 11/23/2017 9:34:13 AM CDT, Pool: SILVESTRE MAE REFILL ([id number]) documented in this encounter Plan of Treatment Upcoming Encounters Date Type Specialty Care Team Description 05/05/2022 Appointment Chemo Therapy/Infusion Services 09/15/2022 Telemedicine Gastroenterology Eusebio Haines MD [address] [place], [place] [address] (Wo rk) documented as of this encounter Visit Diagnoses Diagnosis Encounter for long-term (current) use of medications - Primary Encounter for long-term (current) use of other medications documented in this encounter Care Teams General Intern Relationship Specialty Start Date End Date Sheeba Castillo APRN, MANAGING MEMBER PCP - General Nurse Practitioner 07/20/16 [address] [place] Dinh [id number] documented as of this encounter
--- OUTSIDE RECORDS SUMMARY | 2022-03-20 16:11 | XMS_ITS | Encounter Summary ---
:1975 Author Organization [employer] Address [address] [address] Care Team Providers Name Role Phone Sheeba Castillo APRN, CERTIFIED GREEN BUILDING ENGINEER Primary Care Provider Reason for Visit Reason Comments Follow-up Encounter Details Date Type Department Care Team Description 05/23/2018 Office Visit Edenilson Samano, OD Severe myopia of both eyes (Primary Dx); Ophthalmology [address] [facility] Dry eye syndrome, bilateral [address] [place], [place] [id number] [place] [address] [phone] Social History Tobacco Use Types Packs/Day Years [...] at Date Recorded Female 05/09/2021 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 Assessment: ICD-10-CM 1. Severe myopia of both eyes H52.13 2. Dry eye syndrome, bilateral H04.123 Plan: The findings were discussed with the patient. For more information on instructions given, please see Patient Instructions section. 06/26. Here for Rx recheck. I think her symptoms of intermittent blur is more c/w ocular surface etiology/ dry eyes. Recommend D/C CL, start artificial tears QID BE. List given. Call in 2 weeks if still having symptoms. CL fitting not yet complete, will call after dryness better. Not yet scheduled VF/OCT, no new issues or symptoms. Will call when ready. ON appear stable, likely just small crowded nerves. +ENGINEERING AID BE. Return to clinic for VF/ OCT when ready, or sooner as needed. ESSOR OF MEDICINE documented in this encounter Plan of Treatment Upcoming Encounters Date Type Specialty Care Team Description 05/05/2022 Appointment Chemo Therapy/Infusion Services 09/15/2022 Telemedicine Gastroenterology Eusebio Haines MD [address] [place], [place] [id number] (Wo rk) documented as of this encounter Visit Diagnoses Diagnosis Severe myopia of both eyes - Primary Myopia Dry eye syndrome, bilateral documented in this encounter Care Teams Sealing And Canceling Machine Operator Relationship Specialty Start Date End Date Sheeba Castillo, RN ACCESS, CERTIFIED GREEN BUILDING ENGINEER PCP - General Nurse Practitioner 07/20/16 [address] [address] [place] [id number] documented as of this encounter
--- OUTSIDE RECORDS SUMMARY | 2022-03-20 16:11 | XMS_ITS | Encounter Summary ---
:1975 Author Organization [employer] Address [address] [place] [address] Care Team Providers Name Role Phone Sheeba Castillo APRN, LEAD QUALITY TECHNICIAN Primary Care Provider [phone] Reason for Visit Procedure/Equipment (Routine) - Incomplete Specialty Diagnoses / Procedures Referred By Contact Refer red To Contact Diagnoses Well adult exam Idania Andrade MD Procedures MM Mammogram Screening Bilat W CAD [address] [place] [address] Referral ID Status Reason Start Date Expiration Date Visits V isits Requested Authorized [id number] Incomplete 12/17/2017 03/18/2019 1 1 Encounter Details Date Type Department Care Team Description 01/15/2018 Imaging [place] [facility] Idania Andrade MD Well adult exam [address] [place] [address] [place] [id number] (Wo rk) Social History Tobacco Use Types [...] at Date Recorded Female 05/09/2021 7:19 PM GAS PLANT DISPATCHER documented as of this encounter Plan of Treatment Upcoming Encounters Date Type Specialty Care Team Description 05/05/2022 Appointment Chemo Therapy/Infusion Services 09/15/2022 Telemedicine Gastroenterology Eusebio Haines MD [address] [place] [address] (Wo rk) documented as of this encounter Procedures Procedure Name Priority Date/Time Associated Diagnosis Comme nts MM MAMMOGRAM Routine 01/15/2018 3:45 PM Well adult exam Result s for this SCREENING BILAT W CDT procedure are in CAD the results section. documented in this encounter Results MM Mammogram Screening Bilat W CAD (01/15/2018 3:45 PM CDT) Anatomical Region Laterality Modality Breast Bilateral Mammography Specimen (Source) Anatomical Location Collection Method / Collectio n Time Received Time / Laterality Volume Impressions 01/15/2018 4:09 PM CDT : ACR BI-RADS Category 1: Negative RECOMMENDATION: Follow Up Imaging in 12 months - Bilateral The results and recommendations of this examination will be communicated to the patient. Narrative 01/15/2018 4:09 PM CDT MM MAMMOGRAM SCREENING BILAT W CAD performed on 01/15/18 No comparisons were made when reading th is study. Baseline. FINDINGS: Bilateral screening mammogram was performed with the assistance of Computer-Aided Detection. The breasts are heterogeneously dense, which may obscure small masses. There is no radiographic evidence of mal ignancy. ?? Idania Andrade MD RAD STEPHANE documented in this encounter Visit Diagnoses Diagnosis Well adult exam Routine general medical examination at a health care facility documented in this encounter Care Teams Customer Care Specialist Relationship Specialty Start Date End Date Sheeba Castillo, PACKAGE WRAPPER, LEAD QUALITY TECHNICIAN PCP - General Nurse Practitioner 07/20/16 [address] [place] [id number] documented as of this encounter
--- OUTSIDE RECORDS SUMMARY | 2022-03-20 16:11 | XMS_ITS | Encounter Summary ---
:1975 Author Organization [employer] Address [address] [place] [address] Care Team Providers Name Role Phone Sheeba Sandoval APRN, CNP Primary Care Provider [phone] Reason for Visit Reason Comments Refill dicyclomine (BENTYL) 20 MG t ablet [Pharmacy Med Name: DICYCLOMINE HCL 20MG TABS] Encounter Details Date Type Department Care Team Description 01/28/2018 Refill [facility] Sheeba Sandoval, Re fill (dicyclomine Medicine [facility] (BENTYL) 20 MG tablet [address] [facility] [address] [address] [place] [Pharmacy Med Name: [place], [place] [address] [place] [address] DICYCLOMINE HCL 20MG [phone] (Wo rk) TABS]) Social History Tobacco Use Types Packs/Day [...] at Date Recorded Female 05/09/2021 7:[address] documented as of this encounter Nursing Notes Interface, Out Pockethernet Prov Query - 01/28/2018 1:03 PM CDT dicyclomine (BENTYL) 20 MG tablet [Pharmacy Med Name: DICYCLOMINE HCL 20MG TABS] Medication started: 08/10/2012 Last ordered by SHEEBA SANDOVAL C: 07/25/2016 (552 days ago) QTY: 360, Refills: 3, Sig: take 1 tab by mouth 4 times daily as needed (take 1 tablet by mouth 4 times daily as needed.). (changed) -> The requested sig has changed from the last order. -> Medication cannot be delegated. -> A qualifying visit was not found within the last 2 years. Last qualifying visit: None (A recent visit (in Family Practice) was found) Next scheduled visit: None Powered by [employer], Reference: [id number], 01/28/2018 1:03:54 PM CDT, Pool: SILVESTRE MAE REFILL ([id number]) documented in this encounter Plan of Treatment Upcoming Encounters Date Type Specialty Care Team Description 05/05/2022 Appointment Chemo Therapy/Infusion Services 09/15/2022 Telemedicine Gastroenterology Eusebio Haines MD [address] [place], [place] [address] (Wo rk) documented as of this encounter Visit Diagnoses Not on filedocumented in this encounter Care Teams Arc Welding Machine Operator Relationship Specialty Start Date End Date Sheeba Sandoval, INSTRUMENT STERILIZER, ORDER BUILDER LOADER PCP - General Nurse Practitioner 07/20/16 [address] [place] [address] documented as of this encounter
--- OUTSIDE RECORDS SUMMARY | 2022-03-20 16:11 | XMS_ITS | Encounter Summary ---
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 COMPLETE BLOOD Routine 02/13/2018 4:13 PM Chronic ulcerative R esults for this COUNT-W/DIFF CDT proctitis with procedure are in rectal bleeding the results (HRC) section. DIFFERENTIAL Routine 02/13/2018 4:13 PM Results f or this CDT procedure are i n the results section. C-REACTIVE PROTEIN Routine 02/13/2018 4:13 PM Chronic ulcerati ve Results for this CDT proctitis with procedure are in rectal bleeding the results (HRC) section. ALT (SGPT) Routine 02/13/2018 4:13 PM Chronic ulcerative Res ults for this CDT proctitis with procedure are in rectal bleeding the results (HRC) section. documented in this encounter Results Differential (02/13/2018 4:13 PM CDT) P athologist Signature Absolute 5.5 1.8 - 8.0 PN SOFT Neutrophils k/cmm Absolute 3.2 1.1 - 4.0 PN SOFT Lymphocytes k/cmm Absolute 0.5 0.2 - 0.8 PN SOFT Monocytes k/cmm Absolute 0.2 0.0 - 0.5 PN SOFT Eosinophils k/cmm Absolute 0.1 0.0 - 0.2 PN SOFT Basophils k/cmm Immature 0.3 0.0 - 0.5 PN SOFT Granulocytes % Specimen Anatomical Collection Method Collection Time Receive d Time (Source) Location / / Volume Laterality 02/13/2018 4:13 PM 8 4:13 CDT PM CDT Narrative PN SOFT - 02/13/2018 4:16 PM CDT Performed at [facility], [address] [place] [address] CLIA number [id number] Faye Felton APRN, [facility]ER[facility] LAB_1 Performing Organization Address City/State/ZIP Code Phon e Number PN SOFT [address] [place] [address] (ABNORMAL) C Reactive Protein (02/13/2018 4:13 PM CDT) P athologist Signature CRP 1.4 (H) 0.0 - 0.5 PN SOFT mg/dL Specimen Anatomical Collection Method Collection Time Receive d Time (Source) Location / / Volume Laterality 02/13/2018 4:13 PM 8 4:13 CDT PM CDT Narrative PN SOFT - 02/13/2018 5:31 PM CDT Performed at [facility], [address] [place] [address] CLIA number [id number] Faye Felton APRN, CNP LAB_1 Performing Organization Address [facility] Phon e Number PN SOFT [address] [place] [address] Alanine Aminotransferase (ALT) (02/13/2018 4:13 PM CDT) [facility] Time Signature Alanine 26 9 - 55 PN SOFT Aminotransferase U/L Specimen Anatomical Collection Method Collection Time Receive d Time (Source) Location / / Volume Laterality 02/13/2018 4:13 PM 8 4:13 CDT PM CDT Narrative PN SOFT - 02/13/2018 5:31 PM CDT Performed at [facility], [address] [place] [address] CLIA number [id number] Faye Felton APRN, CNP LAB_1 Performing Organization Address [facility] Phon e Number PN SOFT [address] [place] [address] Creatinine (02/13/2018 4:13 PM CDT) P athologist Signature Creatinine Serum 0.70 0.55 - PN SOFT 1.02 mg/dL Est GFR >60 >60 PN SOFT Am mL/min/1.7 3m2 Est GFR Non-Afr >60 >60 PN SOFT Am mL/min/1.7 3m2 Comment: Normal>60, moderate decrease 30 - 59, se nay decrease 15 - 29, renal failure <15 mL/min/1.73 m2 NOTE: ??Choose the eGFR result above kenia ropriate for the race of the patient. Specimen Anatomical Collection Method Collection Time Receive d Time (Source) Location / / Volume Laterality 02/13/2018 4:13 PM 8 4:13 CDT PM CDT Narrative PN SOFT - 02/13/2018 5:31 PM CDT Performed at [facility], [address] [place] [address] CLIA number [id number] Faye Felton APRN, CNP LAB_1 Performing Organization Address [facility] Phon e Number PN SOFT [address] [place] [address] CBC - Complete Blood Count W/Diff (02/13/2018 4:13 PM CDT) P athologist Signature White Blood Cell 9.5 3.8 - 11.0 PN SOFT Count k/cmm Red Blood Cell 4.45 3.70 - PN SOFT Count 5.20 m/cmm Hemoglobin 14.0 11.8 - PN SOFT 15.5 g/dL Hematocrit 40.5 35.0 - PN SOFT 46.0 % Mean Corpuscular 91.0 80.0 - PN SOFT Volume 100.0 fL RDW 12.7 11.0 - PN SOFT 15.0 % Platelet Count 331 140 - 450 PN SOFT k/cmm Specimen Anatomical Collection Method Collection Time Receive d Time (Source) Location / / Volume Laterality 02/13/2018 4:13 PM 8 4:13 CDT PM CDT Narrative PN SOFT - 02/13/2018 4:16 PM CDT Performed at [facility], [address] [place] [address] CLIA number [id number] Faye Felton APRN, CNP LAB_1 Performing Organization Address [facility] Phon e Number PN SOFT [address] [place] [address] [phone] documented in this encounter Visit Diagnoses Diagnosis 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
--- OUTSIDE RECORDS SUMMARY | 2022-03-20 16:11 | XMS_ITS | Encounter Summary ---
:1975 Author Organization [employer] Address [address] [address] Care Team Providers Name Role Phone Sheeba Castillo APRN, AMBULATORY TECHNOLOGIST Primary Care Provider [phone] Reason for Visit Reason Onset Date Comments Refill 10/17/2017 Cholestyramine 4gm/d ose powder Encounter Details Date Type Department Care Team Description 10/17/2017 Refill [facility] [address] Faye Felton R efjustyn (Cholestyramine Gastroenterology DIVING JUDGE, AMBULATORY TECHNOLOGIST 4gm/dose powder) 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 Please see MyChart encounter from 04-16-17 with update. Soniya Carbone - 10/17/2017 12:14 PM CDT Last fill on 09/20/17 for a quantity of 378 documented in this encounter Plan of Treatment Upcoming Encounters Date Type Specialty Care Team Description 05/05/2022 Appointment Chemo Therapy/Infusion Services 09/15/2022 Telemedicine Gastroenterology Eusebio Haines MD [address] [place], [place] [address] (Wo rk) documented as of this encounter Visit Diagnoses Not on filedocumented in this encounter Care Teams Spudder Relationship Specialty Start Date End Date Sheeba Castillo, DIVING JUDGE, AMBULATORY TECHNOLOGIST PCP - General Nurse Practitioner 07/20/16 [address] [place] [id number] documented as of this encounter
--- OUTSIDE RECORDS SUMMARY | 2022-03-20 16:11 | XMS_ITS | Encounter Summary ---
:1975 Author Organization [employer] Address [address] [place] [address] Care Team Providers Name Role Phone Sheeba Castillo APRN, SIERRA Primary Care Provider [phone] Reason for Referral Procedure/Equipment (Routine) - Incomplete Specialty Diagnoses / Procedures Referred By Contact Refer red To Contact Diagnoses Well adult exam Idania Andrade MD Procedures MM Mammogram Screening Bilat W CAD [address] [place] [address] Referral ID Status Reason Start Date Expiration Date Visits V isits Requested Authorized [id number] Incomplete 12/17/2017 03/18/2019 1 1 Reason for Visit Reason Comments Annual Exam Encounter Details Date Type Department Care Team Description 12/17/2017 Office Visit [facility] Idania Andrade Well a dult exam (Primary Dx); Medicine Essential hypertension; [address] [facility] [address] [place] Non morbid obesity due to excess calorie s [place] [address] [place] [phone] [id number] Social History Tobacco Use Types Packs/Day Years [...] at Date Recorded Female 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 ?? Drink alcohol in moderation, if at all. That means no more than 2 drinks a day for men and 1 drink a day for women. Follow your doctor's advice about when to [...] have tests for diabetes. ?? Colon cancer. Have a test for colon cancer at age 50. You may have one of several tests. If you are younger than 50, you may need a test earlier if you have any risk factors. Risk factors include whether you already had a precancerous polyp removed from your colon or whether your parent, brother, si ster, or child has had colon cancer. For women ?? Breast exam and mammogram. Talk to your doctor about when you should have a clinical breast exam and a mammogram. Medical experts differ on whether and how often women under 50 should have these tests. Your doctor can help you decide what is right for you. ?? Pap test and pelvic exam. Begin Pap tests at age 21. A Pap test is the best way to find cervical cancer. The test often is part of a pelvic exam. Ask how often to have this test. ?? Tests for sexually transmitted infections (STIs). [...] you are older than 45 and are -Chilean or have a father or brother who got prostatecancer when he was younger than 65. When should you call for help? Watch closely for changes in your health, and be sure to contact your doctor if you have any problems or symptoms that concern you. Where can you learn more? 1. Go to Tivra/GlobalCrypto or Clouli/[employer]Things[employer]Company. 2. Enter P072 in the search box. Current as of: November 07, 2016 Content Version: 11.7 ?? [id number] [employer], [employer]. documented in this encounter Progress Notes Eleanor Lopez RN - 12/28/2017 1:35 PM CDT Dear Idania, I am writing to let you know that your Pap and HPV result is negative. This means that your test result was normal. No cancer or pre-cancerous cells were seen. Based on current cervical cancer screening recommendations, your next Pap and HPV should be in 3 years. Continue to schedule your annual preventive exams for your overall health. If you have questions about cervical cancer screening or your test results, call [phone]. Sincerely, Eleanor Lopez RN on behalf of Dr. Shanna Ovalle, Warehouse [employer] [place] Cervical Cancer Screening and Management Idania Andrade MD - 12/17/2017 3:45 PM CDT Subjective: Preventive Exam & Pelvic SUBJECTIVE: Patient presents for a routine preventive physical exam. The patient has the following concerns: none Past Medical History: Past Medical History: Diagnosis Date ??? BCC (basal cell carcinoma), leg 08/11/2011 ??? BP (high blood pressure) (HRC) ??? Chronic headaches 08/11/2011 ??? Clostridium difficile colitis 01/2012 ??? Concussion 08/11/2011 ??? HTN (hypertension) (HRC) 08/11/2011 ??? Hx of tonsillectomy 08/11/2011 ??? Irritable bowel syndrome 11/29/2002 ??? 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 Patient is not currently having periods (Reason: Continuous hormonal contraception). Other Medical/Surgical History: Past [...] ??? Stroke Negative Family History ??? Cancer, Breast Negative Family History ??? Cancer, Colon Negative Family History ??? DVT/PE Negative Family History ??? Thyroid Disorder Negative Family History ??? Diabetes Negative Family History ??? Amblyopia/Strabismus Negative Family History ??? Blindness Negative Family History ??? Cataract Negative Family History ??? Glaucoma Negative Family History ??? Macular Degeneration Negative Family History ??? Retinal Detachment Negative Family History Social History: Social History Social History ??? Marital status: Single Spouse name: N/A ??? Number of children: 0 ??? Years of education: N/A Occupational History ??? [employer] Social History Main Topics ??? Smoking status: Former Smoker Packs/day: 0.25 Years: 15.00 Types: Cigarettes Quit date: 04/25/2015 ??? Smokeless tobacco: Never Used ??? Alcohol use 1.8 oz/week 3 Cans of beer per week Comment: rarely ??? Drug use: No ??? Sexual activity: Yes Partners: Male control/ protection: OCP Other Topics Concern ??? City Water Yes ??? Exercise Yes ??? Guns In Home Yes ??? Seat Belt Yes ??? Special Diet No ??? Weight Concern Yes Social History Narrative . 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. 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 Preventive Health Assessment: Health maintenance alerts are reviewed and updated. Calcium intake is adequate. Diet: 5 fruits and veggies, minimal serving per week of red meat. 2x per week eat fast food. The patient does drink soda, monster a couple times per week. Exercise is adequate. Bikes, walks. The patient practices safe sex. Seatbelts are used at all times. Tetanus immunization is up-to-date. Sun protection is used. mammo due Recent lipid screen has not been performed. Review of Systems: With the exception of any items noted above, the remainder of the complete ROS is negative. OBJECTIVE: Vital Signs: Filed Vitals: 12/17/17 1545 BP: 127/86 Pulse: 86 Weight: 184 lb (83.5 kg) Height: 5' 5.5 (1.664 m) Estimated body mass index is 30.15 kg/(m^2) as calculated from the following: Height as of this encounter: 5' 5.5 (1.664 m). Weight as of this encounter: 184 lb (83.5 kg). General: Patient alert, in NAD. HEENT: PERRLA. Bilateral TM's, external canals, oropharynx normal. Neck: Supple, without thyromegaly or mass. Upper Extremities: FROM with good strength, no lesions or deformities. CV: RRR without murmurs, rubs or gallops. Resp: Clear to auscultation without crackles, wheezes or distress. Abdomen: Soft, non-tender, without hepatosplenomegaly or masses Breasts: Symmetrical, nontender, without masses or nipple discharge. Lymphatic: No neck or supraclavicular lymphadenopathy. Lower Extremities: no edema, lesions, or deformity. pelvic exam: normal vagina and vulva, vaginal discharge described as normal and physiologic, normal cervix without lesions, polyps or tenderness Skin: No lesions or rashes on exposed skin. Neuro: CN II-XII, motor function intact. Psychiatric: Alert & oriented with normal affect and insight. Patient does not appear depressed or anxious. ASSESSMENT/ PLAN: Idania was seen today for annual exam. Diagnoses and all orders for this visit: Well adult exam - Pap Test Order - norethindrone-eth estradiol (DASETTA ) 1-35 MG-MCG tablet; Take 1 Tab by mouth daily. Takes continuously - Lipid Panel and Direct LDL(If Needed); Future - Basic Metabolic Panel; Future - MM Mammogram Screening Bilat W CAD; Future Essential hypertension (HRC) controlled - triamterene-hydrochlorothiazide (MAXZIDE-25) 37.5-25 MG tablet; Take 1 Tab by mouth daily. Non morbid obesity due to excess calories (HRC) - Phentermine HCl 37.5 MG capsule; Take 1 Cap by mouth daily. Preventive health counseling provided: diet, exercise, PAP tests, sun screen, calcium, breast exams Contraception: Risks, benefits, and alternatives for use were discussed. Please note that parts of this document were created with voice recognition dictation. Typographicalerrors may result. documented in this encounter Plan of Treatment Upcoming Encounters Date Type Specialty Care Team Description 05/05/2022 Appointment Chemo Therapy/Infusion Services 09/15/2022 Telemedicine Gastroenterology Eusebio Haines MD [address] [place], [place] [address] (Wo rk) documented as of this encounter Procedures Procedure Name Priority Date/Time Associated Comments Diagnosis PAP TEST ORDER Routine 12/17/2017 4:23 PM Well adult exam Resu lts for this CDT procedure are i n the results section. HPV WITH 16 18 Routine 12/17/2017 4:23 PM Results for this GENOTYPING, CDT procedure are i n CERVICAL/ENDOCERVICA the res ults L section. ANATOMICAL PATH Routine 12/17/2017 4:23 PM Result s for this LIQUID BASED CDT procedure are i n the results [...] ignancy. ?? Idania Andrade MD RAD STEPHANE Pap Smear (12/17/2017 4:23 PM CDT) Specimen (Source) Anatomical Collection Method Collection Time Re ceived Time Location / / Volume Laterality 12/17/2017 4:23 PM CDT Narrative PN SOFT - 12/25/2017 5:11 PM CDT FINAL GYNECOLOGICAL CYTOLOGY REPORT Pathology #: [id number] ?Date Obtained: 12/17/2017 ? Date Received: 12/18/2017 INTERPRETATION/RESULTS: Negative for Intraepithelial Lesion or M alignancy. SPECIMEN ADEQUACY: Satisfactory for Evaluation. ??Endocervi per cells/transformation zone component present. Verified on 12/25/2017 ??by DEON Trevizo, CT(ASCP) (electronic signature) CLINICAL NOTES: ?Abnormal bleeding: No, LMP: con tinuous OCP, Menstrual status: ?None Apply, Current form of the rapy: Hormone Therapy LIQUID BASED PAP SMEAR SPECIMEN TYPE: ?ROUTINE CERVICAL PAP TEST PLEASE NOTE: The pap smear is a screening test design ed to aid in the detection of cervical cancer and its pre cursor lesions. It is not a diagnostic procedure and georges uld not be used as the sole means of detecting cervical cancer. Both false-positive and false-negative report s may occur. Performed at [facility], [address] [place] [address] Idania Andrade MD LAB_1 Performing Organization Address City/State/ZIP Code Phon e Number PN SOFT [address] [place] [address] [phone] HPV with 16 18 Genotyping (12/17/2017 4:23 PM CDT) [facility] Method Time Signature HPV High Risk Not Detected PN SOFT 16 HPV High Risk Not Detected PN SOFT 18 Other HPV High Not Detected PN SOFT Risk Not 16/18 Comment: ........................................ ................................. The Robyn HPV Test is a qualitative in v itro test for the detection of Human Papillomavirus in [facility] patient specimens. ??The test utilizes amplifica tion of target DNA by Polymerase Chain Reaction (PCR) and n ucleic acid hybridization for the detection of 14 hi gh-risk (HR) HPV types. The assay tests for high risk typ es (16, 18, 31, 33, 35, 39, 45, 51, 52, 56, 58, 59, 66 and 6 8). NOTE: This test was developed and its pe rformance characteristics determined by [facility] [employer]. It has not been cleared or approved by [facility]. The laboratory is regulated under CLIA as qualified to perform high-complexity testing. This test is used for clinical purposes. It should not be regarded as investigational or fo r research. Specimen Anatomical Collection Method Collection Time Receive d Time (Source) Location / / Volume Laterality 12/17/2017 4:23 PM 8 4:23 CDT PM CDT Narrative PN SOFT - 12/24/2017 1:28 PM CDT Performed at [place] [address] [place] [address] CLIA number [id number] Idania Andrade MD LAB_1 Performing Organization Address [facility] Phon e Number PN SOFT [address] [place] [address] [phone] Pap Test Order (12/17/2017 4:23 PM CDT) Analysis Performed At Patho logist Time Signature Pap Smear Collected PN SOFT Monolayer tracking test Specimen Anatomical Collection Method Collection Time Receive d Time (Source) Location / / Volume Laterality 12/17/2017 4:23 PM 8 3:52 CDT AM CDT Narrative PN SOFT - 12/17/2017 4:24 PM CDT Performed at [address] [address] CLIA number [id number] Idania Andrade MD LAB_1 Performing Organization Address [facility] Phon e Number PN SOFT [address] [place] [address] [phone] documented in this encounter Visit Diagnoses Diagnosis Well adult exam - Primary Routine general medical examination at a health care facility Essential hypertension (HRC) Unspecified essential hypertension Non morbid obesity due to excess calorie s (HRC) Well adult exam Routine general medical examination at a health care facility documented in this encounter Care Teams Managed Care Specialist Relationship Specialty Start Date End Date Sheeba Castillo, BRIM CUTTER, JAVA FRONT END WEB DEVELOPER PCP - General Nurse Practitioner 07/20/16 [address] [address] [place] [address] documented as of this encounter
--- OUTSIDE RECORDS SUMMARY | 2022-03-20 16:11 | XMS_ITS | Encounter Summary ---
:1975 Author Organization [employer] Address [address] [place] [address] Care Team Providers Name Role Phone Sheeba Castillo APRN, SIERRA Primary Care Provider [phone] Reason for Visit Reason Comments Refill Phentermine HCl 37.5 MG caps ule [Pharmacy Med Name: PHENTERMINE HCL 37.5MG CAPS] Encounter Details Date Type Department Care Team Description 04/29/2018 Refill [facility] Iggy Hernandez MD Refill (Phentermine HCl [address] Reyn[place] 37.5 MG capsule [address] [place], [place] [Pharmacy Med Name: [place] [address] PHENTERMINE HCL 37.5MG [phone] (Wo rk) CAPS]) Social History Tobacco Use [...] at Date Recorded Female 05/09/2021 7:19 PM NETWORK PRICING CONSULTANT documented as of this encounter Nursing Notes Interface, Out Surescripts Prov Query - 04/29/2018 10:55 AM CST Phentermine HCl 37.5 MG capsule [Pharmacy Med Name: PHENTERMINE HCL 37.5MG CAPS] Medication started: 10/12/2016 Last ordered by IGGY HERNANDEZ (133 days ago) QTY: 30, Refills: 3, Sig: take 1 cap by mouth daily. (changed but equivalent) -> Medication cannot be delegated. Last qualifying visit: 12/17/2017 (with IGGY HERNANDEZ) Next scheduled visit: None Powered by [employer], Reference: [id number], 04/29/2018 10:55:09 AM NETWORK PRICING CONSULTANT, Pool: DEANDRA FP REFILL ([id number]) ORK PRICING CONSULTANT Interface, Out [email or web address] Prov Query - 04/29/2018 10:55 AM CST No Careplan note found by [employer]. ORK PRICING CONSULTANT documented in this encounter Plan of Treatment Upcoming Encounters Date Type Specialty Care Team Description 05/05/2022 Appointment Chemo Therapy/Infusion Services 09/15/2022 Telemedicine Gastroenterology Eusebio Haines MD [address] [place], [place] [address] (Wo rk) documented as of this encounter Visit Diagnoses Not on filedocumented in this encounter Care Teams Clinical Documentation Manager Relationship Specialty Start Date End Date Sheeba Castillo, RUDY, SOURCER PCP - General Nurse Practitioner 07/20/[address] [place] [address] documented as of this encounter
--- OUTSIDE RECORDS SUMMARY | 2022-03-20 16:11 | XMS_ITS | Encounter Summary ---
:1975 Author Organization [facility] Address [address], [place] [address] Care Team Providers Name Role Phone Sheeba Castillo APRN, SIERRA Primary Care Provider [phone] Encounter Details Date Type Department Care Team Description 05/15/2018 teddy Wright [phone] Social History Tobacco Use Types Packs/Day Years [...] at Date Recorded Female 05/09/2021 7:19 PM JAVA WEB DEVELOPER documented as of this encounter Progress Notes FAMILY MEDICINETEDDY PROVIDER - 05/15/2018 12:00 AM CST Jim wright Treatment Plan Diagnosis Viral Upper Respiratory Infection Visit Date May 15, 2018 Idania Duarte Date of : 79 Provider Chandrika Donovan, Physician Grinding Operator Note From Provider Nam Emerson- there are several viral upper respiratory infections going around this time of year (including some cases of flu) and many things we can do to relieve your symptoms: continue ibuprofen (600-800mg every 6-8 hours) to settle pain/inflammation; take guaifenesin (plain, generic Mucinex) to keep mucus thin and easier to clear out; drink warm lemonade with honey as a natural throat remedy; use the prescription nasal spray to settle sinus inflammation. It is available OTC as Flonase andother brands if not well covered by insurance. If any follow up is needed, we can treat anywhere in the [place] where you are traveling. Happy holidays and safe travel! Treatment Plan Let???s get you feeling better in the next 24 hours by using a special blend of jqkk-ztw-uvsvdxi products to reduce your pain and other common VURI symptoms such as inflammation, fever, and cough wherever you are in you VURI progression. Because this infection is viral, an antibiotic won???t be effective at soothing your symptoms or treating the virus. If your symptoms don't improve after 3 days, or if you have questions, select Help to Request a Call Back and we'll adjust your treatment for free. Order(s) fluticasone 50 mcg/actuation spray,suspension [place] 2 spray into both nostrils once a day as directed for 30 days Note: Refills: 2 Sent To: [facility] [place] [address] [place] [address] Treatment Plan Self Care Tip Topics Symptom Relief with Ibuprofen and an Expectorant Soothing Foods and Drinks Decongestants Steam Therapy Runny Nose/Sneezing What to Expect Your symptoms are often [...] arms My Conditions, Orders, Allergies as of May 15, 2018 Standard condition list Ulcerative Colitis Current orders fluticasone (fluticasone) Necon 0.5/35 (28) (norethindrone-ethin estradiol) Lialda (mesalamine) Allergies None [facility] Information [facility] by [employer]ian Xiao[employer]er We are an online clinic open 15/01. If you have any questions or comments about this visit, please call or email [email or web address]. WEB DEVELOPER documented in this encounter Plan of Treatment Upcoming Encounters Date Type Specialty Care Team Description 05/05/2022 Appointment Chemo Therapy/Infusion Services 09/15/2022 Telemedicine Gastroenterology Eusebio Haines MD [address] [place], [place] [address] (Wo rk) documented as of this encounter Visit Diagnoses Not on filedocumented in this encounter Care Teams Clinic Nurse Relationship Specialty Start Date End Date Sheeba Castillo, COTTON BUYER, RN TRAVEL PCP - General Nurse Practitioner 07/20/16 [address] [address] [place] [address] documented as of this encounter
--- OUTSIDE RECORDS SUMMARY | 2022-03-20 16:11 | XMS_ITS | Encounter Summary ---
:1975 Author Organization [employer] Address [address], [place] [address] Care Team Providers Name Role Phone Sheeba Castillo APRN, SIERRA Primary Care Provider [phone] Reason for Visit Reason Comments Refill Encounter Details Date Type Department Care Team Description 09/20/2017 Refill [facility] [address] Leigh MD Refill Gastroenterology [address] [place] [address] [place], [place] [address] [phone] Social History Tobacco Use Types Packs/Day Years [...] Date Recorded Female 05/09/2021 7:19 PM YEAST CAKE CUTTER documented as of this encounter Nursing Notes Zina Kenny RN - 09/20/2017 11:00 AM CDT Last visit: 01-11-17 Recommended F/U: 3 months Next visit: none Labs: CBC completed on 01-03-17 and Creatinine completed on 08-14-16 Chronic medication: yes On 08-20-17 GI RN sent in a 30 day courtesy refill. Patient was also contacted at this time to make an appointment. No appointment has been made. GI RN is not able to refill this request per protocol. documented in this encounter Plan of Treatment Upcoming Encounters Date Type Specialty Care Team Description 05/05/2022 Appointment Chemo Therapy/Infusion Services 09/15/2022 Telemedicine Gastroenterology Eusebio Haines MD [address] [place] [address] (Wo rk) documented as of this encounter Visit Diagnoses Diagnosis Ulcerative pancolitis without complicati on (HRC) - Primary documented in this encounter Care Teams Nurse Sexual Assault Relationship Specialty Start Date End Date Sheeba Castillo, STUDENT DRIVING INSTRUCTOR, PRECISION DANCER PCP - General Nurse Practitioner 07/20/16 [address] [place] [id number] documented as of this encounter
--- OUTSIDE RECORDS SUMMARY | 2022-03-20 16:11 | XMS_ITS | Encounter Summary ---
:1975 Author Organization [employer] Address [address], [place] [address] Care Team Providers Name Role Phone Sheeba Castillo APRN, FENCE RIDER Primary Care Provider [phone] Reason for Visit Reason Comments Refill Encounter Details Date Type Department Care Team Description 10/17/2017 Refill [facility] [address] Leigh MD Refill Gastroenterology [address] [place] [address] [place], [place] [address] [phone] Social History Tobacco Use Types Packs/Day Years [...] at Date Recorded Female 05/09/2021 7:19 PM FINANCE VICE PRESIDENT documented as of this encounter Nursing Notes Zina Kenny RN - 10/17/2017 12:48 PM CDT Last visit: 7-20-17 Recommended F/U: 3 months Next visit: 02-19-18 Chronic medication: no Since patient has not been on medication for a year GI RN is not able to refill. documented in this encounter Plan of Treatment Upcoming Encounters Date Type Specialty Care Team Description 05/05/2022 Appointment Chemo Therapy/Infusion Services 09/15/2022 Telemedicine Gastroenterology Eusebio Haines MD [address] [place], [place] [address] (Wo rk) documented as of this encounter Visit Diagnoses Not on filedocumented in this encounter Care Teams Skiver Sock Linings Relationship Specialty Start Date End Date Sheeba Castillo, CAT DRIVER, FENCE RIDER PCP - General Nurse Practitioner 07/20/[address] [place] [id number] documented as of this encounter
--- OUTSIDE RECORDS SUMMARY | 2022-03-20 16:11 | XMS_ITS | Encounter Summary ---
:1975 Author Organization [employer] Address [address], [place] [address] Care Team Providers Name Role Phone Sheeba Castillo APRN, CONTACT LENS FLASHING PUNCHER Primary Care Provider [phone] Reason for Visit Reason Onset Date Comments Refill 08/20/2018 Cholestyramine 4mg p owder Encounter Details Date Type Department Care Team Description 08/20/2018 Refill [place] Faye Felton, Refill (Ch olestyramine Gastroenterology DECORATING CONSULTANT, CONTACT LENS FLASHING PUNCHER 4mg powder) [address] [facility] [address] [place] [address] [facility] [address] [place] [address] (Wo rk) Social History Tobacco Use Types [...] at Date Recorded Female 05/09/2021 7:19 PM METAL TURNER documented as of this encounter Nursing Notes Zina Kenny RN - 08/28/2018 12:11 PM CST Called and left message that Rx was sent in for BID. L TURNER Faye Jimenez APRN, SIERRA - 08/28/2018 12:00 PM CST I sent another Rx for her reflecting ok to increase to twice daily as needed. Hopefully this will besufficient. L TURNER Beth Nichols RN - 08/28/2018 11:51 AM CST Pharmacy calling re: Questron stating that patient is questioning if she can have the RX as before where she can increase Questron as needed. Pharmacy would need new Rx. L TURNER Kassie Laughlin RN - 08/23/2018 10:13 AM CST Is pt out of refills? If pt takes 4g per day and gets 378g per fill, this should last approximately 90 days. There were 3 additional refills sent on 02/13/18 which in theory should last an entire year until Jan 2019 L TURNER Interface, Out Surescripts Prov Query - 08/20/2018 5:10 PM CST cholestyramine (QUESTRAN) 4 GM/DOSE powder Medication started: 01/11/2017 Last ordered by FAYE JIMENEZ E: 02/13/2018 (188 days ago) QTY: 378, Refills: 3, Sig: take 4 g by mouth daily. may increase to twice daily if not improving. separate at least 2 hours from other medications. (unchanged) -> Validate ordering provider. -> This medication may not have been authorized by the requested provider. -> Due to an unreadable sig, manually ensure the patient is due for a renewal. -> A qualifying visit was not found within the last 2 years. -> LDL (PN) is overdue (performed over 19 months ago, required every 12 months) Last qualifying visit: None (A recent visit (in Family Practice) was found) Next scheduled visit: None LDL (PN): 105 mg/dL on 01/22/2017 Powered by [employer], Reference: [id number], 08/20/2018 5:10:26 PM METAL TURNER, Pool: PN REFILL WIZARD ADMIN ([id number]) L TURNER Peg Boateng - 08/20/2018 5:09 PM CST Last fill on 07/15/18 for a quantity of 378 L TURNER documented in this encounter Plan of Treatment Upcoming Encounters Date Type Specialty Care Team Description 05/05/2022 Appointment Chemo Therapy/Infusion Services 09/15/2022 Telemedicine Gastroenterology Eusebio Haines MD [address] [place] [address] (Wo rk) documented as of this encounter Visit Diagnoses Not on filedocumented in this encounter Care Teams Coal Gasification Technician Relationship Specialty Start Date End Date Sheeba Castillo, DECORATING CONSULTANT, CONTACT LENS FLASHING PUNCHER PCP - General Nurse Practitioner 07/20/16 [address] [place] MAGD[place] Dinh [address] documented as of this encounter
--- OUTSIDE RECORDS SUMMARY | 2022-03-20 16:11 | XMS_ITS | Encounter Summary ---
:1975 Author Organization [employer] Address [address] [address] Care Team Providers Name Role Phone Sheeba Castillo APRN, SIERRA Primary Care Provider [phone] Encounter Details Date Type Department Care Team Description 03/04/2018 Lab Visit [facility] Severe myopia of both eyes [address] [place] [address] Social History Tobacco Use Types [...] Date Recorded Female 05/09/2021 7:19 PM IT SECURITY MANAGER documented as of this encounter Plan of Treatment Upcoming Encounters Date Type Specialty Care Team Description 05/05/2022 Appointment Chemo Therapy/Infusion Services 09/15/2022 Telemedicine Gastroenterology Eusebio Haines MD [address] [place], [place] [address] (Wo rk) documented as of this encounter Procedures Procedure Name Priority Date/Time Associated Diagnosis Comme nts HGB A1C Routine 03/04/2018 6:53 AM Severe myopia of Resul ts for this CDT both eyes procedure are i n the results section. GLUCOSE - FASTING > Routine 03/04/2018 6:53 AM Severe myopia o f Results for this 8 HRS FASTING CDT both eyes procedure are in the results section. documented in this encounter Results Glucose (03/04/2018 6:53 AM CDT) athologist Signature Lab Glucose 92 70 - 100 PN SOFT mg/dL Comment: The stated glucose range is for the fast ing state. Non-fasting glucose range is 70-180 mg/d L Specimen Anatomical Collection Method Collection Time Receive d Time (Source) Location / / Volume Laterality 03/04/2018 6:53 AM 8 6:52 CDT AM CDT Narrative PN SOFT - 03/04/2018 8:16 AM CDT Performed at [facility], [address] [place] [address] CLIA number [id number] Edenilson Deepti Spann OD LAB_1 Performing Organization Address City/[facility]/ZIP Code Phon e Number PN SOFT [address] [place] [address] Hemoglobin A1C Glycosylated (03/04/2018 6:53 AM CDT) athologist Signature HGB A1C 5.2 4.0 - 5.6 % PN SOFT Specimen Anatomical Collection Method Collection Time Receive d Time (Source) Location / / Volume Laterality 03/04/2018 6:53 AM 8 CDT 12:56 PM CDT Narrative PN SOFT - 03/04/2018 6:07 PM CDT Performed at [place] [address] [place] [address] CLIA number [id number] Edenilson Tatum Maria Ines OD LAB_1 Performing Organization Address City/[facility]/ZIP Code Phon e Number PN SOFT [address] [place] [address] documented in this encounter Visit Diagnoses Diagnosis Severe myopia of both eyes Myopia documented in this encounter Care Teams Night Supervisor Relationship Specialty Start Date End Date Sheeba Castillo, HARDWOOD FLOOR INSTALLER, DOUGH BRAKE MACHINE OPERATOR PCP - General Nurse Practitioner 07/20/16 [address] [place] Dinh [address] documented as of this encounter
--- OUTSIDE RECORDS SUMMARY | 2022-03-20 16:11 | XMS_ITS | Encounter Summary ---
:1975 Author Organization [employer] Address [address] [address] Care Team Providers Name Role Phone Sheeba Castillo APRN, SIERRA Primary Care Provider [phone] Reason for Visit Reason Comments Refill Encounter Details Date Type Department Care Team Description 08/20/2017 Refill [facility] [address] Hai Leigh MD Refill Gastroenterology [address] [place] [address] [place], [place] [address] [phone] Social History Tobacco Use Types Packs/Day Years [...] at Date Recorded Female 05/09/2021 7:19 PM NANNY CAREGIVER documented as of this encounter Nursing Notes Catalina Simms RN - 08/20/2017 3:30 PM CST ALEKS 01/11/17. 3 month recommended follow up aopt which was canceled. Last labs per protocol done 01/11/17. Left message for patient to call back to schedule follow up appt. RN able to sign script for chronic med per refill protocol for 30 day fill until patient schedules recommended follow up appt. 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
--- OUTSIDE RECORDS SUMMARY | 2022-03-20 16:11 | XMS_ITS | Encounter Summary ---
:1975 Author Organization [employer] Address [address] [address] Care Team Providers Name Role Phone Sheeba Castillo APRN, CNP Primary Care Provider [phone] Reason for Visit Reason Onset Date Comments Refill 07/04/2017 Encounter Details Date Type Department Care Team Description 07/04/2017 [facility]ill [place] Faye Felton APRN, CNP Refill [address] [facility] [address] [place] [address] [address] [place], [place] [address] (Wo rk) Social History Tobacco Use Types [...] at Date Recorded Female 05/09/2021 7:19 PM DECK STEWARD documented as of this encounter Nursing Notes Zina Kenny RN - 07/04/2017 11:05 AM CST Last visit: 7-20-17 Recommended F/U: See my chart on 04-16-17 Next visit: none Chronic medication: no See MyChart on 04-16-17 with updates. Since patient has not been on Rx for a year nursing is not able to refill Rx. STEWARD Zina Kenny RN - 07/04/2017 11:03 AM DECK STEWARD From: Idania Duarte To: Faye Hinojosa APRN, CNP Sent: 07/04/2017 9:27 AM DECK STEWARD Subject: Medication Renewal Request Original authorizing provider: Faye Hinojosa APRN, SIERRA Duarte would like a refill of the following medications: cholestyramine (QUESTRAN) 4 GM/DOSE powder [Faye Hinojosa APRN, SIERRA] Preferred pharmacy: [facility] [address] Comment: STEWARD documented in this encounter Plan of Treatment Upcoming Encounters Date Type Specialty Care Team Description 05/05/2022 Appointment Chemo Therapy/Infusion Services 09/15/2022 Telemedicine Gastroenterology Eusebio Haines MD [address] [place], [place] [address] (Wo rk) documented as of this encounter Visit Diagnoses Not on filedocumented in this encounter Care Teams Lactation Consultant Relationship Specialty Start Date End Date Sheeba Castillo APRN, EAP COUNSELOR PCP - General Nurse Practitioner 07/20/16 [address] [place] [id number] documented as of this encounter
--- OUTSIDE RECORDS SUMMARY | 2022-03-20 16:11 | XMS_ITS | Encounter Summary ---
:1975 Author Organization [employer] Address [address], [place] [address] Care Team Providers Name Role Phone Sheeba Castillo APRN, CNP Primary Care Provider [phone] Reason for Visit Reason Onset Date Comments Refill 01/09/2018 Encounter Details Date Type Department Care Team Description 01/09/2018 Refill [facility] erology Faye Felton APRN, CNP Refill [address] [facility] [address] [place] [address] [address] [place], [place] [address] (Wo rk) Social History Tobacco Use Types [...] at Date Recorded Female 05/09/2021 7:19 PM AUTOMATION AND CONTROLS INSTRUCTOR documented as of this encounter Nursing Notes Zina Kenny RN - 01/10/2018 8:00 AM CDT From: Idania Duarte To: Faye Hinojosa APRN, CNP Sent: 01/09/2018 2:59 PM CDT Subject: Medication Renewal Request Original authorizing provider: Faye Hinojosa APRN, CNP Kelly L. Carlson would like a refill of the following medications: cholestyramine (QUESTRAN) 4 GM/DOSE powder [Faye Hinojosa APRN, CNP] Preferred pharmacy: [facility] [address] Comment: Medication renewals requested in this message routed to other providers: Phentermine HCl 37.5 MG capsule [Idania Andrade MD] documented in this encounter Plan of Treatment Upcoming Encounters Date Type Specialty Care Team Description 05/05/2022 Appointment Chemo Therapy/Infusion Services 09/15/2022 Telemedicine Gastroenterology Eusebio Haines MD [address] [place], [place] [address] (Wo rk) documented as of this encounter Visit Diagnoses Not on filedocumented in this encounter Care Teams Superintendent System Operation Relationship Specialty Start Date End Date Sheeba Castillo APRN, CNP PCP - General Nurse Practitioner 07/20/[address] [place] [address] documented as of this encounter
--- OUTSIDE RECORDS SUMMARY | 2022-03-20 16:11 | XMS_ITS | Encounter Summary ---
:1975 Author Organization [employer] Address [address] [place] [address] Care Team Providers Name Role Phone Sheeba Castillo APRN, VISITING NURSE Primary Care Provider [phone] Reason for Visit Reason Comments Refill triamterene-hydrochlorothiaz enedelia (MAXZIDE-25) 37.5-25 MG tablet [Pharmacy Med Name: TRIAMTERENE-HCTZ 37.5- 25MG TABS] Encounter Details Date Type Department Care Team Description 11/23/2017 Refill [facility] Iggy Hernandez, Katie payton Medicine (triamterene-hydrochloro [address] Reyna thiazide (MAXZIDE-25) [place], [place] [address] [place], [place] 37.5-25 MG tablet [phone] [Pharmacy Med Name: [phone] TRIAMTERENE-HCT Z (Work) 37.5-25MG TABS]) Social History Tobacco Use Types [...] at Date Recorded Female 05/09/2021 7:19 PM SUSTAINABILITY ANALYST documented as of this encounter Nursing Notes Mana Soto RN - 11/26/2017 9:38 AM CDT Renewed medication per medication refill protocol. Requested Prescriptions Pending Prescriptions Disp Refills triamterene-hydrochlorothiazide (MAXZIDE-25) 37.5-25 MG tablet [Pharmacy Med Name: TRIAMTERENE-HCTZ37.5-25MG TABS] 90 Tab 0 Sig: TAKE ONE TABLET BY MOUTH EVERY DAY Interface, Out Surescripts Prov Query - 11/23/2017 9:34 AM CDT triamterene-hydrochlorothiazide (MAXZIDE-25) 37.5-25 MG tablet [Pharmacy Med Name: TRIAMTERENE-HCTZ 37.5-25MG TABS] Medication started: 08/10/2012 Last ordered by IGGY HERNANDEZ (78 days ago) QTY: 90, Refills: 0, Sig: take one tablet by mouth every day (unchanged) -> Cr, K, and Na are overdue (performed 16 months ago, required every 12 months) Last qualifying visit: 12/14/2016 (with IGGY HERNANDEZ) Next scheduled visit: 12/17/2017 (in Family Practice) SBP: 140 mm Hg on 12/14/2016 DBP: 84 mm Hg on 12/14/2016 Cr: 0.6 mg/dL on 08/14/2016 Na: 138 mEq/L on 08/14/2016 K: 3.7 mEq/L on 08/14/2016 PATIENT IS DUE FOR: - CR (Sent to PC REFILL LAB) - K (Sent to [facility] REFILL LAB) - NA (Sent to PC REFILL LAB) Powered by [employer], Reference: [id number], 11/23/2017 9:34:12 AM CDT, [place]: SILVESTRE ELISE ([id number]) documented in this encounter Plan of Treatment Upcoming Encounters Date Type Specialty Care Team Description 05/05/2022 Appointment Chemo Therapy/Infusion Services 09/15/2022 Telemedicine Gastroenterology Eusebio Haines MD [address] [place], [place] [address] (Wo rk) documented as of this encounter Visit Diagnoses Not on filedocumented in this encounter Care Teams Sheet Rock Hanger Relationship Specialty Start Date End Date Sheeba Castillo, SPINNER HYDRAULIC, VISITING NURSE PCP - General Nurse Practitioner 07/20/16 [address] [place] MAGDALENA Dinh [id number] documented as of this encounter
--- OUTSIDE RECORDS SUMMARY | 2022-03-20 16:11 | XMS_ITS | Encounter Summary ---
:1975 Author Organization [employer] Address [address] [place] [address] Care Team Providers Name Role Phone Sheeba Castillo APRN, CNP Primary Care Provider [phone] Reason for Visit Reason Comments Refill triamterene-hydrochlorothiaz enedelia (MAXZIDE-25) 37.5-25 MG tablet [Pharmacy Med Name: TRIAMTERENE-HCTZ 37.5- 25MG TABS] Encounter Details Date Type Department Care Team Description 09/05/2017 Refill [place] [facility] Chandrika Garcia, Refill Medicine SIERRA GRANT (triamterene-hydrochloro [address] thiazide (MAXZIDE-25) [place], [place] [address] 37.5-25 MG tablet [phone] [place], [place] [Pharmacy Me d Name: [id number] TRIAMTERENE-HCTZ [phone] (Wo rk) 37.5-25MG TABS]) Social History Tobacco Use Types [...] at Date Recorded Female 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 Last visit with Bright Andrade was 12/14/16 (annual) Next Steps: Review pended order for accuracy. Sign. Close encounter. Requested Prescriptions Pending Prescriptions Disp Refills ??? triamterene-hydrochlorothiazide (MAXZIDE-25) 37.5-25 MG tablet [Pharmacy Med Name: TRIAMTERENE-HCTZ 37.5-25MG TABS] 90 Tab 0 Sig: TAKE ONE TABLET BY MOUTH EVERY DAY Interface, Out Surescripts Prov Query - 09/05/2017 9:26 AM CDT triamterene-hydrochlorothiazide (MAXZIDE-25) 37.5-25 MG tablet [Pharmacy Med Name: TRIAMTERENE-HCTZ 37.5-25MG TABS] Medication started: 08/10/2012 Last ordered by CHANDRIKA GARCIA: 04/25/2017 (133 days ago) QTY: 90, Refills: 0, Sig: take one tablet by mouth every day (unchanged) -> An office visit is overdue (performed over 19 months ago, required every 12 months). Last qualifying visit: 02/05/2016 (with CHANDRIKA GARCIA) (A more recent visit (in Family Practice) was found) Next scheduled visit: None SBP: 140 mm Hg on 12/14/2016 DBP: 84 mm Hg on 12/14/2016 Cr: 0.6 mg/dL on 08/14/2016 Na: 138 mEq/L on 08/14/2016 K: 3.7 mEq/L on 08/14/2016 PATIENT IS DUE FOR: - CR (Sent to [facility] REFILL [facility]) - K (Sent to PC REFILL LAB) - NA (Sent to PC REFILL LAB) Powered by [employer], Reference: [id number], 09/05/2017 9:26:11 AM CDT, Pool: [facility] FP REFILL ([id number]) documented in this encounter Plan of Treatment Upcoming Encounters Date Type Specialty Care Team Description 05/05/2022 Appointment Chemo Therapy/Infusion Services 09/15/2022 Telemedicine Gastroenterology Eusebio Haines MD [address] [place], [place] [address] (Wo rk) documented as of this encounter Visit Diagnoses Not on filedocumented in this encounter Care Teams Reclamation Supervisor Relationship Specialty Start Date End Date Sheeba Castillo, PRODUCT CONSULTANT, ELECTRICAL REPAIRER PCP - General Nurse Practitioner 07/20/16 [address] [place] MAGDALENA Dinh [phone] documented as of this encounter
--- OUTSIDE RECORDS SUMMARY | 2022-03-20 16:11 | XMS_ITS | Encounter Summary ---
:1975 Author Organization [employer] Address [address] [place] [address] Care Team Providers Name Role Phone Sheeba Castillo APRN, SIERRA Primary Care Provider [phone] Reason for Visit Reason Comments Refill Phentermine HCl 37.5 MG caps ule [Pharmacy Med Name: PHENTERMINE HCL 37.5MG CAPS] Encounter Details Date Type Department Care Team Description 10/16/2018 Refill [facility] Iggy Hernandez MD Refill (Phentermine HCl [address] Reyna 37.5 MG capsule [address] [place], [place] [Pharmacy Med Name: [place] [address] PHENTERMINE HCL 37.5MG [phone] (Wo rk) CAPS]) Social History Tobacco Use [...] at Date Recorded Female 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 (unchanged) -> Medication cannot be delegated. Last qualifying visit: 12/17/2017 (with IGGY HERNANDEZ) Next scheduled visit: None Powered by [employer], Reference: [id number], 10/16/2018 11:33:31 AM CDT, Pool: DEANDRA FP REFILL ([id number]) Interface, Out [employer] Query - 10/16/2018 11:33 AM CDT No Careplan note found by [employer]. documented in this encounter Plan of Treatment Upcoming Encounters Date Type Specialty Care Team Description 05/05/2022 Appointment Chemo Therapy/Infusion Services 09/15/2022 Telemedicine Gastroenterology Eusebio Haines MD [address] [place] [address] (Wo rk) documented as of this encounter Visit Diagnoses Not on filedocumented in this encounter Care Teams Scratcher Relationship Specialty Start Date End Date Sheeba Castillo APRN, EXTENSION WORK DIRECTOR PCP - General Nurse Practitioner 07/20/16 [address] [place] Dinh [phone] documented as of this encounter
--- OUTSIDE RECORDS SUMMARY | 2022-03-20 16:11 | XMS_ITS | Encounter Summary ---
:1975 Author Organization [employer] Address [address] [address] Care Team Providers Name Role Phone Sheeba Castillo APRN, JERSEY KNITTER Primary Care Provider [phone] Reason for Visit Reason Comments Annual Exam 2 1/2 yr cl ck and eye exam, BE dist Encounter Details Date Type Department Care Team Description 03/01/2018 Office Visit [place] Contact Niesha Roque Myopia of both eyes Lens [address] 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 Specs Right biofinity sph 8.6 14.0 -8.00 Daily Wear dist 20/25- Left biofinity sph 8.6 14.0 -8.00 Daily Wear dist 20/20-2 Expiration Date: 03/01/2020 Replacement: Monthly Solutions: [employer] PureMoist Wearing Schedule: Daily wear documented in this encounter Plan of Treatment Upcoming Encounters Date Type Specialty Care Team Description 05/05/2022 Appointment Chemo Therapy/Infusion Services 09/15/2022 Telemedicine Gastroenterology Eusebio Haines MD [address] [place], [place] [address] (Wo rk) documented as of this encounter Visit Diagnoses Diagnosis Myopia of both eyes - Primary Myopia documented in this encounter Care Teams Staff Veterinarian Relationship Specialty Start Date End Date Sheeba Castillo, ACCOUNTANT BUDGET, JERSEY KNITTER PCP - General Nurse Practitioner 07/20/16 [address] [place] MAGDALENA Dinh [address] documented as of this encounter
--- OUTSIDE RECORDS SUMMARY | 2022-03-20 16:11 | XMS_ITS | Encounter Summary ---
:1975 Author Organization [employer] Address [address] [place] [address] Care Team Providers Name Role Phone Sheeba Castillo APRN, CNP Primary Care Provider [phone] Reason for Referral Consult/Transfer Care (Routine) - Closed Specialty Diagnoses / Procedures Referred By Contact Refer red To Contact Diagnoses Malignant melanoma of skin of trunk, except scrotum (HRC) Idania Andrade MD [address] [place] [address] [place] [id number] Referral ID Status Reason Start Date Expiration Date Visits Requ ested Visits Authorized [id number] Closed 12/19/2018 03/19/2020 1 1 Scheduling Instructions Your provider has recommended an appoint ment with Cindy Jewell. You may call [phone] to schedule your appoi ntment. If you do not schedule an appointment within the next 1 to 3 business days, we will call you to help arrange your appointment. We suggest you call your [facility] insurance company about your coverage and benefits for this appointment. 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 The patient has the following concerns: none Is down 4# this month since starting the phentermine. Drinks 2 sodas per day still. Has cut out Monsters. Does not tolerate topirmate. Caused mental fog. Is having a colitis flair. Will schedule to see GI soon. Has been having a lot of bleeding and wonders if she is anemic. Past Medical History: Past Medical History: Diagnosis Date ??? BCC (basal cell carcinoma), leg 08/11/2011 ??? BP (high blood pressure) ??? Chronic headaches 08/11/2011 ??? Clostridium difficile colitis 01/2012 ??? Concussion 08/11/2011 ??? HTN (hypertension) (HRC) 08/11/2011 ??? Hx of tonsillectomy 08/11/2011 ??? Irritable bowel syndrome 11/29/2002 ??? 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 Obesity (HRC) 08/11/2011 Subsea Engineer History: Last Pap Smear: UTD Current Contraceptive [...] Not on file Occupational History ??? 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 Financial resource strain: Not on file ??? Food insecurity: Worry: Not on file Inability: Not on file ??? Transportation needs: Medical: Not on file Non-medical: Not on file Tobacco Use ??? Smoking status: Former Smoker Packs/day: 0.25 Years: 15.00 Pack years: 3.75 Types: Cigarettes Last attempt to quit: 04/25/2015 Years since quittin.6 ??? Smokeless tobacco: Never Used Substance and Sexual Activity ??? Alcohol use: Yes Alcohol/week: 1.8 oz Types: 3 Cans of beer per week Comment: rarely ??? Drug use: No ??? Sexual activity: Yes Partners: Male control/protection: OCP Lifestyle ??? Physical activity: Days per week: Not on file Minutes per session: Not on file ??? Stress: Not on file Relationships ??? Social connections: Talks on phone: Not on file Gets together: Not on file Attends scientology service: Not on file Active member of [...] Yes Social History Narrative . Works in [employer]. 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 Preventive Health Assessment: Health maintenance alerts are reviewed and updated. Calcium intake is adequate. Diet: 5 fruits and veggies, minimal serving per week of red meat. 2x per week eat fast food. The patient does drink soda. Exercise is adequate. Bikes, walks. The patient practices safe sex. Seatbelts are used at all times. Tetanus immunization is up-to-date. Sun protection is used. mammo due Recent lipid screen has not been performed. Review of Systems: With the exception of any items noted above, the remainder of the complete ROS is negative. OBJECTIVE: Vital Signs: Filed Vitals: 12/19/18 1541 BP: 134/74 Pulse: 88 Weight: 180 lb (81.6 kg) Height: 5' 5.5 (1.664 m) Estimated body mass index is 29.5 kg/m?? as calculated from the following: Height as of this encounter: 5' 5.5 (1.664 m). Weight as of this encounter: 180 lb (81.6 kg). General: Patient alert, in NAD. HEENT: [...] Lower Extremities: no edema, lesions, or deformity. Skin: No lesions or rashes on exposed skin. Neuro: CN II-XII, motor function intact. Psychiatric: Alert & oriented with normal affect and insight. Patient does not appear depressed or anxious. ASSESSMENT/ PLAN: Idania was seen today for annual exam. Diagnoses and all orders for this visit: Well adult exam - norethindrone-eth estradiol (DASETTA ) 1-35 MG-MCG tablet; Take 1 Tablet by mouth daily. Takescontinuously - Hgb A1C; Future - TSH with Free T4 (if TSH Abnormal); Future - Complete Blood Count W/Diff; Future - MM Mammogram Screening Bilat W CAD; Future Malignant melanoma of skin of trunk, except scrotum (HRC) Has not seen Dermatology in years, recommended she follow up with them soon. - Dermatology Consult-Adult/Peds Overweight She will try to restart the topiramate at 1/2 tablet each evening and will increase as tolerated. She will follow up in 6 months given she has been on the phentermine in the past and is close to her goal weight. I strongly suggested she continue to wean back on soda. - Phentermine HCl 37.5 MG capsule; Take 1 Capsule by mouth daily. - topiramate (TOPAMAX) 25 MG tablet; Take 1 Tablet by mouth daily at bedtime. Preventive health counseling provided: diet, exercise, PAP [...] Services 09/15/2022 Telemedicine Gastroenterology Eusebio Haines MD [address] [place] [address] (Wo rk) Scheduled Referrals Name Type Priority Associated Diagnoses Order S chedule Dermatology Referral Routine Malignant melanoma of Ordere d: 12/19/2018 Consult-Adult/Peds skin of trunk, except scrotum (HRC) documented as of this encounter Results TSH with Free T4 (if TSH Abnormal) (12/19/2018 4:30 PM CDT) athologist Signature TSH, Reflex 1.63 0.30 - 4.50 12/19/2018 [facility] uIU/mL 10:07 PM CDT LABORATORY Specimen Anatomical Collection Method / Collection Time Recei peña Time (Source) Location / Volume Laterality Blood Venipuncture / 12/19/2018 4:30 12/19/2018 4:30 Unknown PM CDT PM CDT Narrative [facility] - 12/19/2018 10:07 PM CDT Lab will automatically reflex to Free T4 when TSH results are <0.30 uIU/mL or >4.50 mIU/mL. Idania Andrade MD LAB_1 Performing Organization Address City/[facility] Phon e Number [facility] [address] [place] [address] Hgb A1C (12/19/2018 4:30 PM CDT) athologist Signature Hemoglobin A1C 5.5 <=5.6 % 12/20/2018 [facility] 9:23 AM CDT LABORATORY Specimen Anatomical Collection Method / Collection Time Recei peña Time (Source) Location / Volume Laterality Blood Venipuncture / 12/19/2018 4:30 12/19/2018 4:30 Unknown PM CDT PM CDT Idania Andrade MD LAB_1 Performing Organization Address [facility] Phon e Number [facility] [address] [place] [address] documented in this encounter Visit Diagnoses Diagnosis Well adult exam - Primary Routine general medical examination at a health care facility Malignant melanoma of skin of trunk, exc ept scrotum (HRC) Malignant melanoma of skin of trunk, exc ept scrotum Overweight (HRC) documented in this encounter Care Teams Cement Side Laster Relationship Specialty Start Date End Date Sheeba Castillo, SQL BI DEVELOPER, SITE INTERPRETER PCP - General Nurse Practitioner 07/20/16 [address] [place] [id number] documented as of this encounter
--- OUTSIDE RECORDS SUMMARY | 2022-03-20 16:11 | XMS_ITS | Encounter Summary ---
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 documented as of this encounter Last Filed Vital Signs Vital Sign Reading Time Taken Comments Blood Pressure 133/74 01/16/2018 4:17 PM CDT Pulse 85 01/16/2018 4:17 PM CDT Temperature - - Respiratory Rate - - Oxygen Saturation - - Inhaled Oxygen Concentration - - Weight - - Height - - Body Mass Index - - documented in this encounter Patient Instructions Patient InstructionsEileen Nava RDH - 01/16/2018 4:10 PM CDT Your next hygiene recall is due 07/15/2018 PERSONAL DENTAL RISK REPORT FOR IGGY DUARTE Caries (Tooth Decay) Risk Periodontal (Gum Disease) Risk Oral Cancer Risk Your Risk Level Moderate High Moderate X Low This exam Your Risk Level Low High Moderate Low X This exam Your Risk Level Low Elevated Low X This exam Your Risk Factors Three or more caries in last 3 years How To Reduce Your Risk Rinse with fluoride rinse once or twice daily at times other than when brushing Your Risk Factors How To Reduce Your Risk Consider quitting tobacco habit; participate in a QuitLine program or other means of quitting Return visit with the dental hygienist at 6 month intervals Your Risk Factors How To Reduce Your Risk CONGRATULATIONS. The results of your dental risk assessment indicate you are at low risk for gum disease. Making healthy life style choices including brushing twice a day; daily flossing and not using tobacco should help you maintain this low risk. CONGRATULATIONS. The results of your dental risk assessment indicate you are at low risk for oral cancer. Making healthy life style choices such as not using tobacco and low to moderate alcohol use should help you maintain this low risk. Iggy we look forward to seeing you at your next visit! Thank you for choosing [facility]. documented in this encounter Progress Notes Eileen Nava RDH - 01/16/2018 4:10 PM CDT PROPHKb NOTE PROPHY/ASSESSMENT:[id number]::PROPHY NOTE Collaborative Agreement Patient consents to have charting, radiographs and prophylaxis by the dental hygienist performed with the understanding that this care is not a substitute for examination by a dentist. Presentation ?? Oral Hygiene: normal ?? Plaque: generalized; moderate; interproximal ?? Calculus:localized; moderate; mandibular anterior ?? Stain: none ?? Bleeding: generalized; moderate ?? Gingival tissue: inflamed ?? Mucogingival concerns: absent Activities ?? Treatment included: hand scale, essential selective polishing and flossed all contacts Patient Education ?? Discussion topics: caries risk assessment, fluoride rinse, oral cancer risk and periodontal risk Completed dental procedures in this visit ??? PERIODIC ORAL EVALUATION ??? [id number] ??? PROPHYLAXIS-ADULT RECALL Eileen Nava 01/16/2018, 4:53 PM Adelia Montalvo DDS - 01/16/2018 4:10 PM CDT RECALL EXAM NOTE Chief Complaint Patient presents with ??? Dental Hygiene no cc's Chart Review ?? Reviewed health history, dental history, periodontal charting and radiographs with the patient. Soft tissue, head and neck examination ?? Lips: normal ?? Tongue: normal ?? Palate: normal ?? Throat: normal ?? Floor of the mouth: [place] bilateral shaye ?? Mucosa: normal ?? Head and neck: normal TMD Evaluation ?? Palpation pain: none ?? Joint sounds: none ?? Pain with range of motion: none Occlusal examination ??? Angle relationship: Right molar: class III Right cuspid: class I Left molar: class III Left cuspid:class I ??? Maxillary midline: within normal limits ??? Mandibular midline: within normal limits ??? Overbite: 1 mm ??? Overjet: 1 mm ??? Crossbite: none ??? Space loss: None ??? Crowding: not evident ??? Occlusion: all teeth ??? Attrition: normal ??? Erosion: absent ??? Overall occlusal relationship: stable Cosmetic concerns ?? Patient's perception: acceptable ?? Dentist???s perception: acceptable Treatment Review and Follow-up ?? Dental Findings were described to the patient and they did express understanding ?? Treatment options and prognosis were discussed ?? Informed patient consent was obtained; after all questions were answered ?? Recommended Recall Examination: 6 months Recall prophy: 6 months ?? Planned Recall Examination: 6 months Recall prophy: 6 months NTI Adelia Montalvo DDS 01/16/2018, 5:05 PM documented in this encounter Plan of Treatment Upcoming Encounters Date Type Specialty Care Team Description 05/05/2022 Appointment Chemo Therapy/Infusion Services 09/15/2022 Telemedicine Gastroenterology Eusebio Haines MD [address] [place] [address] (Wo rk) documented as of this encounter Procedures Procedure Name Priority Date/Time Associated Diagnosis Comme nts PERIODIC ORAL Routine 01/16/2018 4:15 PM Routine adult health EVALUATION CDT maintenance [id number] Routine 01/16/2018 4:15 PM Routine adult he alth CDT maintenance PROPHYLAXIS-ADULT Routine 01/16/2018 4:15 PM Routine adult hea lth RECALL CDT maintenance documented in this encounter Visit Diagnoses Diagnosis Routine adult health maintenance - Prima ry Routine general medical examination at a health care facility documented in this encounter Care Teams Temporary Staff Accountant Relationship Specialty Start Date End Date Sheeba Casitllo APRN, PRINT FINISHER PCP - General Nurse Practitioner 07/20/16 [address] [place] [address] documented as of this encounter
--- OUTSIDE RECORDS SUMMARY | 2022-03-20 16:11 | XMS_ITS | Encounter Summary ---
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) (Primary Dx); Gastroenterology [facility] Irritable bowel syndrome with diarrhea [address] [place] [address] [facility] [address] [place] [address] (Wo rk) Social History Tobacco [...] at Date Recorded Female 05/09/2021 7:19 PM ACQUISITION MANAGER documented as of this encounter Last Filed Vital Signs Vital Sign Reading Time Taken Comments Blood Pressure 145/84 02/13/2018 3:36 PM CDT Pulse 96 02/13/2018 3:36 PM CDT Temperature - - Respiratory Rate 18 02/13/2018 3:36 PM CDT Oxygen Saturation - - Inhaled Oxygen Concentration - - Weight 81.2 kg (179 lb) 02/13/2018 3:36 PM CDT Height 168.9 cm (5' 6.5) 02/13/2018 3:36 PM CDT Body Mass Index 28.46 02/13/2018 3:36 PM CDT documented in this encounter Patient Instructions Patient InstructionsFaye Hinojosa APRN, CNP - 02/13/2018 3:40 PM CDT Labs Continue cholestyramine 4 g daily Continue Lialda 4 pills daily Follow up in 1 year, sooner if needed Take careIdania! documented in this encounter Progress Notes Faye Hinojosa APRN, CNP - 02/13/2018 3:40 PM CDT GI Clinic Follow Up - IBD Patient: Idania Duarte : 1975 MR#: [id number] CSN#: [id number] Date of Visit: 02/13/18 Reason for visit: Ulcerative proctitis IBD Data Idania Duarte is a 42-year-old woman who presents for followup of ulcerative colitis. Inflammatory Bowel Disease History 1. Disease: UC 2. Age at diagnosis: 40 3. Extent: proctitis, the proximal spread on recent CT pancolitis during episode of C. Diff infection 4. Perianal involvement: no 5. Extraintestinal manifestations: none 6. Prior IBD treatment: ?a.Oral 5 ASA: Lialda ?b. Topical 5 ASA: canasa ?c. Topical steroids: proctofoam ?d. Corticosteroids: prednisone multi week course at diagnosis that induced aremission? 7. Current therapy/date: Lialda 4.8g daily, cholestyramine 4g daily 8. Recent imaging: CT abd/pelvis 07/25/16 - Diffuse wall thickening involving nearly the entire colon with some sparingof the cecum, sigmoid colon and rectum is again noted. There is slightly greater involvement of the distal descending and sigmoid colon than on the prior study. Mild pericolonic inflammatory stranding is again noted. No pneumatosis or free air. ?? 9. Prior surgery: no surgery? HPI: Idania returns to GI clinic today for follow up regarding a history of ulcerative colitis and recurrent Cdiff infection. She was last seen in December 2016. Diagnosed in August 2015 after colonoscopy showed inflammation from anus to rectum secondary to ulcerative proctitis. Also had mild inflammation in appendiceal orifice consistent with cecal patch. Biopsies noted mild chronic colitis in the rectum, mildactive cryptitis in the cecum. She did have a diminutive adenoma in the sigmoid. For most of 2015 she did well on rectal therapy + Lialda. In 2017, struggled with clostridium difficile infection and UC flare. Her last steroids were in 2016. Last seen in December 2016. Having some loose stools, cramping, and urgency. CBC and sed rate were normal, CRP minimally elevated at 1.7. Her fecal calprotectin was normal. Advised to continue Lialda and start cholestyramine. She returns. Using Lialda 4.8g daily and cholestyramine 4g daily. Fortunately, she is doing quite well. Having 1 formed BM daily. No abdominal pain, nausea, vomiting. No diarrhea. Intermittent rectal bleeding. Appetite is good. She notes as long as she takes the 4 Lialda tabs daily along with cholestyramine once daily, she does well. If she misses a dose, will have increased symptoms. She denies any current extraintestinal manifestations of IBD such as joint pains, oral ulcerations, skin rashes or lesions, or iritis/uveitis. Current Medications: Outpatient Medications Prior to Visit Medication Sig Dispense Refill ??? Calcium Carbonate Antacid 1000 MG Take by mouth. Reported on 08/14/2016 ??? cholestyramine (QUESTRAN) 4 GM/DOSE powder Take 4 g by mouth daily. May increase to twice daily if not improving. Separate at least 2 hours from other medications. 378 g 3 ??? dicyclomine (BENTYL) 20 MG tablet TAKE 1 TABLET BY MOUTH 4 TIMES DAILY NEEDED 360 Tablet 3 ??? mesalamine (LIALDA) 1.2 g enteric coated tablet Take 4 tablets by mouth daily. 120 Tab 11 ??? Multiple Vitamin (MULTI-VITAMIN OR) Take 1 tablet by mouth daily (every 24 hours). ??? norethindrone-eth estradiol (DASETTA ) 1-35 MG-MCG tablet Take 1 Tab by mouth daily. Takes continuously 112 Tab 3 ??? Phentermine HCl 37.5 MG capsule Take 1 Cap by mouth daily. 30 Cap 3 ??? triamterene-hydrochlorothiazide (MAXZIDE-25) 37.5-25 MG tablet Take 1 Tab by mouth daily. 90 Tab3 No facility-administered medications prior to visit. Inflammatory Markers: Lab Results Component Value Date/Time CRP 1.7 (H) 01/03/2017 1542 CRP 1.6 (H) 10/12/2016 1626 CRP 0.6 (H) 08/14/2016 1641 CRP 3.8 (H) 07/30/2016 0737 CRP 13.1 (H) 07/29/2016 0728 CRP 13.1 (H) 07/28/2016 1553 Lab Results Component Value Date/Time Calprotectin Fecal <16 01/04/2017 0514 Lab Results Component Value Date/Time Sedimentation Rate 12 01/03/2017 1542 Sedimentation Rate 18 10/12/2016 1626 Sedimentation Rate 19 04/02/2015 1339 Sedimentation Rate 14 02/28/2008 1725 Sedimentation Rate 3 09/27/2001 1326 Last Flexible sigmoidoscopy: - Date: 07/28/16 - Findings: Congested, erythematous, eroded, and friable mucosa in the rectum, recto-sigmoid colon,and sigmoid colon - Histology: Moderate chronic colitis, negative for dysplasia Last colonoscopy: - Date: 09/22/15 - Findings: [...] prior to starting biologic Rx? Yes, negative - If Yes, was Hep B status documented prior to starting biologic Rx? Yes, negative 3. On Prednisone > 10mg / day [...] ??? HepB, Unspecified Formulation 08/09/2001 ??? Influenza (Fluarix 0.5, 3+ yrs or FluLaval 0.5) 03/23/2014, 03/24/2015, 03/23/2016, 03/26/2017 ??? TDAP (ADACEL) 07/04/2010 ??? Td 11/30/2003 5. Was patient hospitalized for any reason during the past year? Yes - If Yes, did patient receive prophylaxis for DVT? Advised but declined by patient - If Yes, did patient have diarrhea during the hospitalization? yes - If Yes, was patient tested for C. Difficile? yes 6. TPMT: Lab Results Component Value Date TPRBR 24.2 07/26/2016 O: BP (!) 145/84 (BP Location: Left Arm, BP Cuff Size: Adult Regular) Pulse 96 Resp 18 Ht 5' 6.5(1.689 m) Wt 179 lb (81.2 kg) BMI 28.46 kg/m2 GEN: Well appearing female, NAD EYES: sclerae are anicteric EXT: No cyanosis, clubbing, or edema PSYCH: A&Ox3, mood and affect are appropriate LABS: Lab Results Component Value Date/Time WBC 13.5 (H) 07/17/2016 0938 White Blood Cell Count 8.1 01/03/2017 1542 RBC 5.08 07/17/2016 0938 Red Blood Cell Count 4.51 01/03/2017 1542 Hemoglobin 13.7 01/03/2017 1542 Hemoglobin 15.7 07/17/2016 0938 HCT 43.7 07/17/2016 0938 Hematocrit 40.2 01/03/2017 1542 Platelets 439 07/17/2016 0938 Platelet Count 309 01/03/2017 1542 Lab Results Component Value Date/Time Alk Phos 174 (H) 07/19/2016 1221 Bilirubin Total 0.4 07/19/2016 1221 Bilirubin, Direct 0.2 07/19/2016 1221 Protein Total, Serum 7.2 07/19/2016 1221 Albumin 2.9 (L) 07/19/2016 1221 Aspartate Aminotransferase 54 (H) 07/19/2016 1221 Alanine Aminotransferase 62 (H) 07/19/2016 1221 Lab Results Component Value Date/Time Creatinine 0.61 07/17/2016 0938 Creatinine Serum 0.60 08/14/2016 1641 Lab Results Component Value Date/Time Vitamin B12 905 04/02/2015 1339 Lab Results Component Value Date HBSAG Nonreactive 07/26/2016 HBAB Reactive 07/26/2016 HBAB >1000 07/26/2016 HEPCAB Non-React 03/24/2015 ASSESSMENT: 1. Ulcerative colitis 2. Likely superimposed irritable bowel syndrome (IBS) Originally diagnosed with mild IBD and ulcerative proctitis, which was previously management with asneeded Canasa suppositories. In 2017 had cholecystectomy associated with antibiotics and demonstrated positive Cdiff. Her endoscopic appearance suggested UC. Since restarting oral mesalamine her ulcerat gregory colitis has been well controlled. Objective assessment 1 year ago reveals normal CBC, CRP, and fecal calprotectin. Loose stools post prandially likely post cholecystectomy effect vs IBS. Since starting cholestyramine, these symptoms have resolved. Idania is doing quite well. She will continue Lialda 4.8g daily and cholestyramine 4g daily. CBC, CRP, creatinine, ALT today. Follow up in 1 year, sooner if needed. PLAN: 1. Continue Lialda 4.8g daily 2. Continue cholestyramine 4g daily. 3. CBC, CRP, creatinine, ALT 4. Follow up in 1 year, sooner if needed Treatment plan and follow up discussed with the patient and documented in the AVS. Total time spent with patient was 17 minutes, of which 12 minutes were spent consulting patient on condition, treatment, and plan of care. documented in this encounter Plan of Treatment Upcoming Encounters Date Type Specialty Care Team Description 05/05/2022 Appointment Chemo Therapy/Infusion Services 09/15/2022 Telemedicine Gastroenterology Eusebio Haines MD [address] [place] [address] (Wo rk) documented as of this encounter Results (ABNORMAL) C Reactive Protein (02/13/2018 4:13 PM CDT) P athologist Signature CRP 1.4 (H) 0.0 - 0.5 PN SOFT mg/dL Specimen Anatomical Collection Method Collection Time Receive d Time (Source) Location / / Volume Laterality 02/13/2018 4:13 PM 8 4:13 CDT PM CDT Narrative PN SOFT - 02/13/2018 5:31 PM CDT Performed at [facility], [facility] [address] [place] [address] CLIA number [id number] Faye Felton APRN, CNP LAB_1 Performing Organization Address City/State/ZIP Code Phon e Number PN SOFT [address] [place] [address] [phone] Alanine Aminotransferase (ALT) (02/13/2018 4:13 PM CDT) Patholo gist Method Time Signature Alanine 26 9 - 55 PN SOFT Aminotransferase U/L Specimen Anatomical Collection Method Collection Time Receive d Time (Source) Location / / Volume Laterality 02/13/2018 4:13 PM 8 4:13 CDT PM CDT Narrative PN SOFT - 02/13/2018 5:31 PM CDT Performed at [facility], [address] [place], [place] [id number] CLIA number [id number] Faye Felton APRN, CNP LAB_1 Performing Organization Address [facility] Phon e Number PN SOFT [address] [place] [address] Creatinine (02/13/2018 4:13 PM CDT) athologist Signature Creatinine Serum 0.70 0.55 - [...] - 02/13/2018 5:31 PM CDT Performed at [facility], [facility] [address] [place] [address] CLIA number [id number] Faye Felton APRN, CNP LAB_1 Performing Organization Address [facility] Phon e Number PN SOFT [address] [place] [address] CBC - Complete Blood Count W/Diff (02/13/2018 4:13 PM CDT) athologist Signature White Blood Cell 9.5 3.8 [...] - 02/13/2018 4:16 PM CDT Performed at [facility], [address] [place] [address] CLIA number [id number] Faye Felton APRN, CNP LAB_1 Performing Organization Address City/State/ZIP Code Phon e Number PN SOFT [address] [place] [address] documented in this encounter Visit Diagnoses Diagnosis 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
--- OUTSIDE RECORDS SUMMARY | 2022-03-20 16:11 | XMS_ITS | Encounter Summary ---
:1975 Author Organization [facility] [employer] Address [address] [place] [address] Care Team Providers Name Role Phone Sheeba Castillo APRN, ELEMENTARY SCHOOL MUSIC TEACHER Primary Care Provider Reason for Visit Reason Comments Follow-up likes avaira vitality best but VA on RE still not as good as the LE Encounter Details Date Type Department Care Team Description 04/04/2018 Office Visit [place] Contact Niesha Roque Myopia of both eyes Lens [address] [facility] with astigmatism [address] [facility] (Primary Dx) [place] [address] [place], [place] [phone] [address] Social History Tobacco Use Types Packs/Day Years [...] at Date Recorded Female 05/09/2021 7:19 PM FUR POINTER documented as of this encounter Progress Notes Lucero Roque - 04/04/2018 3:30 PM CDT Final Contact Lens Rx Brand Base Curve Diameter Sphere Lens Addl. Specs Right N+D 8.4 13.8 -8.00 Daily Wear dist Left avaira vitality 8.4 14.2 -8.50 Daily Wear dist Expiration Date: 04/04/2020 Replacement: Monthly Wearing Schedule: Daily wear POINTER documented in this encounter Plan of Treatment Upcoming Encounters Date Type Specialty Care Team Description 05/05/2022 Appointment Chemo Therapy/Infusion Services 09/15/2022 Telemedicine Gastroenterology Eusebio Haines MD [address] [place], [place] [address] (Wo rk) documented as of this encounter Visit Diagnoses Diagnosis Myopia of both eyes with astigmatism - P rimary documented in this encounter Care Teams School Year Nanny Relationship Specialty Start Date End Date Sheeba Castillo, VENETIAN BLIND MACHINE OPERATOR, ELEMENTARY SCHOOL MUSIC TEACHER PCP - General Nurse Practitioner 07/20/16 [address] [place] [id number] documented as of this encounter
--- OUTSIDE RECORDS SUMMARY | 2022-03-20 16:11 | XMS_ITS | Encounter Summary ---
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 Assessment: ICD-10-CM 1. Examination of eyes and vision Z01.00 2. Severe myopia of both eyes H52.13 Refractive State, Determination Of - Bilateral Hemoglobin A1C Glycosylated Glucose 3. 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 For more information on instructions given, please see Patient Instructions section. 1/2. High myopia. There has been a gradual increase in myopia over the years. She does endorse excessive thirst. Will get HbA1c and fasting glucose to R/O DM. 3. HTN with likely related retinal vascular changes. Recommend tight BP control. 4. Crowded appearing optic nerves. Likely physiological. (+) TIME STUDY ANALYST BE. Denies any symptoms of Headache, diplopia, or tinnitus. Full color plates. Will get baseline VF and OCT to R/O pathology. Return to clinic for HVF SS 24-2, OCT ONH next avail, CE 1 yr or sooner as needed. documented in this encounter Plan of Treatment Upcoming Encounters Date Type Specialty Care Team Description 05/05/2022 Appointment Chemo Therapy/Infusion Services 09/15/2022 Telemedicine Gastroenterology Eusebio Haines MD [address] [place] [address] (Wo rk) documented as of this encounter Results Glucose (03/04/2018 6:53 AM [...] - 03/04/2018 8:16 AM CDT Performed at [facility], [address] [place] [address] CLIA number [id number] Edenilson C Maria Ines OD LAB_1 Performing Organization Address City/[facility]/ZIP Code Phon e Number PN SOFT [address] [place] [address] [phone] Hemoglobin A1C Glycosylated (03/04/2018 6:53 AM CDT) P athologist Signature HGB A1C 5.2 4.0 - 5.6 % PN SOFT Specimen Anatomical Collection Method Collection Time Receive d Time (Source) Location / / Volume Laterality 03/04/2018 6:53 AM 8 CDT 12:56 PM CDT Narrative PN SOFT - 03/04/2018 6:07 PM CDT Performed at [place] [address] [place] [address] CLIA number [id number] Edenilson Spann OD LAB_1 Performing Organization Address [facility]/ZIP Code Phon e Number PN SOFT [address] [place] [address] documented in this encounter Visit Diagnoses Diagnosis Examination of eyes and vision - Primary Severe myopia of both eyes Myopia Hypertension, unspecified type (HRC) 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
--- OUTSIDE RECORDS SUMMARY | 2022-03-20 16:11 | XMS_ITS | Encounter Summary ---
:1975 Author Organization [facility] Address [address] [address] Care Team Providers Name Role Phone Sheeba Castillo APRN, BODY MAKER Primary Care Provider [phone] Reason for Visit Reason Comments BLOOD PRESSURE CHECK Encounter Details Date Type Department Care Team Description 04/26/2017 Nursing Visit [place] NurseYolanda Blood pres sure check Rheumatology (Primary Dx) [address] [place] [address] Social History Tobacco Use Types [...] at Date Recorded Female 05/09/2021 7:19 PM MOBILE HOME SERVICER documented as of this encounter Last Filed Vital Signs Vital Sign Reading Time Taken Comments Blood Pressure 137/81 04/26/2017 1:37 PM CDT Pulse 107 04/26/2017 1:37 PM CDT Temperature - - Respiratory Rate - - Oxygen Saturation - - Inhaled Oxygen Concentration - - Weight - - Height - - Body Mass Index - - documented in this encounter Progress Notes Ivette Garza V, MIGDALIA - 04/26/2017 3:00 PM CDT Patient had blood pressure checked. Readings recorded. documented in this encounter Plan of Treatment Upcoming Encounters Date Type Specialty Care Team Description 05/05/2022 Appointment Chemo Therapy/Infusion Services 09/15/2022 Telemedicine Gastroenterology Eusebio Haines MD [address] [place], [place] [phone] (Wo rk) documented as of this encounter Visit Diagnoses Diagnosis Blood pressure check - Primary Screening for hypertension documented in this encounter Care Teams Fur Grader Relationship Specialty Start Date End Date Sheeba Castillo APRN, BODY MAKER PCP - General Nurse Practitioner 07/20/16 [address] [place] [id number] documented as of this encounter
--- OUTSIDE RECORDS SUMMARY | 2022-03-20 16:11 | XMS_ITS | Encounter Summary ---
:1975 Author Organization [employer] Address [address], [place] [address] Care Team Providers Name Role Phone Sheeba Castillo APRN, BUILDING CUSTODIAN Primary Care Provider [phone] Reason for Visit Reason Comments Refill DASETTA 1-35 MG-MCG tab let [Pharmacy Med Name: DASETTA 35 1-35MG-MCG TABS] Encounter Details Date Type Department Care Team Description 10/17/2017 Refill [facility] Iggy Hernandez MD Refill (DASETTA / Medicine [address] 1-35 MG-MCG tablet [address] [place], [place] [Pharmacy Med Name: [place] [address] DASETTA /35 1-35MG-MCG [phone] (Wo rk) TABS]) Social History Tobacco Use [...] at Date Recorded Female 05/09/2021 7:19 PM LAB ANIMAL TECHNOLOGIST documented as of this encounter Nursing Notes Clair Armijo RN - 10/19/2017 9:18 AM CDT Renewed medication per medication refill protocol. Requested Prescriptions Signed Prescriptions Disp Refills ??? DASETTA 1/35 1-35 MG-MCG tablet 112 Tab 0 Sig: TAKE 1 TABLET BY MOUTH DAILY (EVERY 24 HOURS). TAKE CONTINOUSLY Authorizing Provider: IGGY HERNANDEZ Ordering User: CLAIR ARMIJO Interface, Out Surescripts Prov Query - 10/17/2017 10:13 AM CDT DASETTA 1/35 1-35 MG-MCG tablet [Pharmacy Med Name: DASETTA 1/35 1-35MG-MCG TABS] Medication started: 03/03/2014 Last ordered by IGGY HERNANDEZ: 12/14/2016 (307 days ago) QTY: 112, Refills: 3, Sig: take 1 tablet by mouth daily (every 24 hours). patient takes continously (changed) -> This medication may not have been authorized by the requested provider. -> Due to an unreadable sig, manually ensure the patient is due for a renewal. -> The requested sig has changed from the last order. -> Refill x 3 months (until due for an office visit) -> Calculate quantity and refills manually. They could not be estimated due to missing or unreadable information. Last qualifying visit: 12/14/2016 (with IGGY HERNANDEZ) Next scheduled visit: 12/17/2017 (in Family Practice) SBP: 140 mm Hg on 12/14/2016 DBP: 84 mm Hg on 12/14/2016 Powered by [employer], Reference: [id number], 10/17/2017 10:13:22 AM CDT, Pool: DEANDRA FP REFILL ([id number]) documented in this encounter Plan of Treatment Upcoming Encounters Date Type Specialty Care Team Description 05/05/2022 Appointment Chemo Therapy/Infusion Services 09/15/2022 Telemedicine Gastroenterology Eusebio Haines MD [address] [place], [place] [id number] (Wo rk) documented as of this encounter Visit Diagnoses Not on filedocumented in this encounter Care Teams Marketing Teacher Relationship Specialty Start Date End Date Sheeba Castillo, SAMPLE SHOE INSPECTOR AND REWORKER, BUILDING CUSTODIAN PCP - General Nurse Practitioner 07/20/16 [address] [place] [address] documented as of this encounter
--- OUTSIDE RECORDS SUMMARY | 2022-03-20 16:11 | XMS_ITS | Encounter Summary ---
:1975 Author Organization [employer] Address [address], [place] [address] Care Team Providers Name Role Phone Sheeba Castillo APRN, SIERRA Primary Care Provider [phone] Reason for Visit Reason Comments Follow-up first follow up check Encounter Details Date Type Department Care Team Description 03/19/2018 Office Visit [place] Contact Niesha Roque Myopia of both eyes Lens [address] (Primary Dx) [address] [place] [address] [place], [place] [phone] [phone] Social History Tobacco Use Types Packs/Day Years [...] at Date Recorded Female 05/09/2021 7:19 PM MANAGER OF CORPORATE COMMUNICATIONS documented as of this encounter Progress Notes Lucero Roque - 03/19/2018 4:00 PM CDT Final Contact Lens Rx Brand Base Curve Diameter Sphere Lens Addl. Specs Right AV oasys #3 8.4 14.0 -7.50 Daily Wear dist 20/20- Left AV oasys #3 8.4 14.0 -8.50 Daily Wear dist 20/20- Expiration Date: 03/19/2020 Replacement: Every 2 weeks Solutions: [employer] Wearing Schedule: Daily wear documented in this encounter Plan of Treatment Upcoming Encounters Date Type Specialty Care Team Description 05/05/2022 Appointment Chemo Therapy/Infusion Services 09/15/2022 Telemedicine Gastroenterology Eusebio Haines MD [address] [place], [place] [address] (Wo rk) documented as of this encounter Visit Diagnoses Diagnosis Myopia of both eyes - Primary Myopia documented in this encounter Care Teams Catcher Helper Relationship Specialty Start Date End Date Sheeba Castillo, CONSERVATION ENGINEER, ASSISTANT HALL DIRECTOR PCP - General Nurse Practitioner 07/20/16 [address] [place] [phone] documented as of this encounter
--- OUTSIDE RECORDS SUMMARY | 2022-03-20 16:11 | XMS_ITS | Encounter Summary ---
:1975 Author Organization [employer] Address [address] [place] [address] Care Team Providers Name Role Phone Sheeba Castillo APRN, CNP Primary Care Provider [phone] Reason for Visit Reason Comments Refill triamterene-hydrochlorothiaz enedelia (MAXZIDE-25) 37.5-25 MG tablet [Pharmacy Med Name: TRIAMTERENE-HCTZ 37.5- 25MG TABS] Encounter Details Date Type Department Care Team Description 04/25/2017 Refill [facility] Chandrika Garcia, Refill Medicine SIERRA GRANT (triamterene-hydrochloro [address] thiazide (MAXZIDE-25) [place], [place] [address] 37.5-25 MG tablet [phone] [place], [place] [Pharmacy Me d Name: [id number] TRIAMTERENE-HCTZ [phone] (Wo rk) 37.5-25MG TABS]) Social History Tobacco [...] at Date Recorded Female 05/09/2021 7:19 PM GRAIN GRADER documented as of this encounter Nursing Notes Oliva Juarez, RN - 04/25/2017 9:55 PM CDT Renewed medication per medication refill protocol. Requested Prescriptions Signed Prescriptions Disp Refills ??? triamterene-hydrochlorothiazide (MAXZIDE-25) 37.5-25 MG tablet 90 Tab 0 Sig: TAKE ONE TABLET BY MOUTH EVERY DAY Authorizing Provider: CHANDRIKA GARCIA Ordering User: OLIVA JUAREZ No Known Allergies Interface, Out Surescripts Prov Query - 04/25/2017 5:07 PM CDT triamterene-hydrochlorothiazide (MAXZIDE-25) 37.5-25 MG tablet [Pharmacy Med Name: TRIAMTERENE-HCTZ 37.5-25MG TABS] Medication started: 07/05/2011 Last ordered by CHANDRIKA GARCIA: 02/05/2016 (445 days ago) QTY: 90, Refills: 4, Sig: take 1 tablet bymouth daily (every 24 hours). (changed but equivalent) -> Refill x 3 months (courtesy refill. overdue for an office visit) Last qualifying visit: 02/05/2016 (with CHANDRIKA GARCIA) (A more recent visit (in Family Practice) was found) Next scheduled visit: None SBP: 140 mm Hg on 12/14/2016 DBP: 84 mm Hg on 12/14/2016 Cr: 0.6 mg/dL on 08/14/2016 Na: 138 mEq/L on 08/14/2016 K: 3.7 mEq/L on 08/14/2016 Powered by [employer]idget[employer], Reference: [id number], 04/25/2017 5:07:56 PM CDT, Americo: SILVESTRE ELISE ([id number]) documented in this encounter Plan of Treatment Upcoming Encounters Date Type Specialty Care Team Description 05/05/2022 Appointment Chemo Therapy/Infusion Services 09/15/2022 Telemedicine Gastroenterology Eusebio Haines MD [address] [place], [place] [phone] (Wo rk) documented as of this encounter Visit Diagnoses Not on filedocumented in this encounter Care Teams Gas Meter Checker Relationship Specialty Start Date End Date Sheeba Castillo, ASSOCIATE AUTOMATION ENGINEER, PROCESSOR GRAIN PCP - General Nurse Practitioner 07/20/16 [address] [place] [id number] documented as of this encounter
--- OUTSIDE RECORDS SUMMARY | 2022-03-20 16:11 | XMS_ITS | Encounter Summary ---
:1975 Author Organization [employer] Address [address] [address] Care Team Providers Name Role Phone Sheeba Castillo APRN, SIERRA Primary Care Provider [phone] Reason for Visit Reason Comments Follow-up PT stopped by and asked if s he needed new RX for contacts due to change in glasses RX Encounter Details Date Type Department Care Team Description 03/04/2018 Initial Consult [place] Contact Niesha Roque Myopia of both eyes Lens [address] [facility] (Primary Dx) [address] [place], [place] [phone] [place] [address] Social History Tobacco Use Types Packs/Day Years [...] at Date Recorded Female 05/09/2021 7:19 PM COLOR MATCHER documented as of this encounter Progress Notes Lucero Roque - 03/04/2018 2:00 PM CDT Final Contact Lens Rx Brand Base Curve Diameter Sphere Lens Addl. Specs Right biofinty 8.6 14.0 -8.00 Daily Wear dist Left biofinty 8.6 14.0 -8.00 Daily Wear dist Expiration Date: 03/04/2020 Replacement: Monthly Solutions: BioTrue Wearing Schedule: Daily wear documented in this encounter Plan of Treatment Upcoming Encounters Date Type Specialty Care Team Description 05/05/2022 Appointment Chemo Therapy/Infusion Services 09/15/2022 Telemedicine Gastroenterology Eusebio Haines MD [address] [place], [place] [address] (Wo rk) documented as of this encounter Visit Diagnoses Diagnosis Myopia of both eyes - Primary Myopia documented in this encounter Care Teams High Lift Mule Operator Relationship Specialty Start Date End Date Sheeba Castillo, MANAGER DISASTER RECOVERY, SPECTROGRAPHER PCP - General Nurse Practitioner 07/20/16 [address] [address] [place] [id number] documented as of this encounter
--- OUTSIDE RECORDS SUMMARY | 2022-03-20 16:11 | XMS_ITS | Encounter Summary ---
:1975 Author Organization [employer] Address [address], [place] [address] Care Team Providers Name Role Phone Sheeba Castillo APRN, SIERRA Primary Care Provider [phone] Encounter Details Date Type Department Care Team Description 11/27/2018 teddy Kaur [phone] Social History Tobacco Use Types Packs/Day Years [...] at Date Recorded Female 05/09/2021 7:19 PM HOURLY TEAM MEMBERS documented as of this encounter Progress Notes FAMILY MEDICINETEDDY PROVIDER - 11/27/2018 12:00 AM CDT teddy Treatment Plan Diagnosis Conjunctivitis Visit Date November 27, 2018 Idania Bhagaton Date of : 79 Provider Lissa Kinney, Physician Portrait Photographer Note From Provider Idania, Thanks for using teddy today! Your current symptoms suggest that you have a viral pink eye infection. Let's have you watch things over the next day or two to see if this turns into a bacterial infection. Symptoms of bacterial pink eye include thick, goopy discharge that is present most of the time, not just the mysql dba crusting that you can easily take care of with a washcloth! I've included a prescription for an antibiotic if you should need one! Request a Call Back with any questions or concerns...we are open 15/01! MAVIS Alcaraz Treatment Plan Since your pinkeye appears to be viral, it won???t respond to antibiotics. Viral pinkeye can turn bacterial; you???ll notice constant, thick and goopy discharge with bacterial infections. Just in case,I???ve sent a prescription over to [facility] for an antibiotic in case it turns bacterial. I???ve also listed a few of the best ways to soothe your discomfort and some additional self-care tips to promote healing. If your symptoms don't improve after 3 days, or if you have questions, select Help to Request a Call Back and we'll adjust your treatment for free. Order(s) tobramycin 0.3% drops Apply 1-2 drop into affected eye every four hours as directed for 7 days Note: Apply during wakeful hours Refills: None Sent To: [facility] [place] [address] [place] [address] Treatment Plan Self Care Tip Topics You're Contagious Warm Pack Wash Your Hands Avoid Sharing Towels For Secretions What to Expect If you follow the recommendations I made on the Treatment tab, your symptoms should improve in about3 days. If your symptoms don't improve after 3 days, or if you have questions, select Help to Request a Call Back and we'll adjust your treatment for free. What to Watch Out For Give us a call immediately if you experience: ??? Vision changes in the affected eye ??? Swelling around the eye ??? Increasing redness ??? Skin changes ??? Pain My Conditions, Orders, Allergies as of November 27, 2018 Standard condition list Ulcerative Colitis Current orders tobramycin (tobramycin) Necon 0.5/35 (28) (norethindrone-ethin estradiol) Lialda (mesalamine) Allergies None virtuwell Information virtuwell by [employer] We are an online clinic open 15/01. If you have any questions or comments about this visit, please call or email [email or web address]. documented in this encounter Plan of Treatment Upcoming Encounters Date Type Specialty Care Team Description 05/05/2022 Appointment Chemo Therapy/Infusion Services 09/15/2022 Telemedicine Gastroenterology Eusebio Haines MD [address] [place] [address] (Wo rk) documented as of this encounter Visit Diagnoses Not on filedocumented in this encounter Care Teams Weaver Hand Loom Relationship Specialty Start Date End Date Sheeba Castillo, PLANISHING PRESS OPERATOR, FIREARMS ASSEMBLY SUPERVISOR PCP - General Nurse Practitioner 07/20/16 [address] [place] [phone] documented as of this encounter
--- OUTSIDE RECORDS SUMMARY | 2022-03-20 16:11 | XMS_ITS | Encounter Summary ---
:1975 Author Organization [employer] Address [address] [place] [address] Care Team Providers Name Role Phone Sheeba Castillo APRN, SIERRA Primary Care Provider [phone] Reason for Visit Reason Comments Refill Phentermine HCl 37.5 MG caps ule [Pharmacy Med Name: PHENTERMINE HCL 37.5MG CAPS] Encounter Details Date Type Department Care Team Description 09/26/2017 Refill [facility] Iggy Hernandez MD Refill (Phentermine HCl [address] Reyna 37.5 MG capsule [address] [place], [place] [Pharmacy Med Name: [place] [address] PHENTERMINE HCL 37.5MG [phone] (Wo rk) CAPS]) Social History Tobacco Use [...] at Date Recorded Female 05/09/2021 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 Iggy Hernandez MD - 09/26/2017 12:19 PM CDT Needs visit prior to refill of this, visits required every 6 months for this med Interface, Out Stylitics Query - 09/26/2017 11:09 AM CDT Phentermine HCl 37.5 MG capsule [Pharmacy Med Name: PHENTERMINE HCL 37.5MG CAPS] Medication started: 10/12/2016 Last ordered by IGGY HERNANDEZ: 05/31/2017 (118 days ago) QTY: 30, Refills: 0, Sig: take 1 cap by mouth daily. (changed but equivalent) -> Medication cannot be delegated. Last qualifying visit: 12/14/2016 (with IGGY HERNANDEZ) Next scheduled visit: 12/17/2017 (in Family Practice) Powered by [employer], Reference: [id number], 09/26/2017 11:09:46 AM CDT, Americo: DEANDRA MAE REFILL ([id number]) Interface, Out Military Wraps Prov Query - 09/26/2017 11:09 AM CDT No Careplan note found by [employer]. documented in this encounter Plan of Treatment Upcoming Encounters Date Type Specialty Care Team Description 05/05/2022 Appointment Chemo Therapy/Infusion Services 09/15/2022 Telemedicine Gastroenterology Eusebio Haines MD [address] [place], [place] [phone] (Wo rk) documented as of this encounter Visit Diagnoses Not on filedocumented in this encounter Care Teams Knit Tubing Dyer Relationship Specialty Start Date End Date Sheeba Castillo, FILLER SHREDDER MACHINE, CLINICAL INFORMATICS MANAGER PCP - General Nurse Practitioner 07/20/16 [address] [address] [place] [phone] documented as of this encounter
--- OUTSIDE RECORDS SUMMARY | 2022-03-20 16:11 | XMS_ITS | Encounter Summary ---
:1975 Author Organization [email or web address] Address [address] [address] Care Team Providers Name Role Phone Sheeba Castillo APRN, CNP Primary Care Provider [phone] Reason for Visit Reason Onset Date Comments Refill 12/23/2017 Encounter Details Date Type Department Care Team Description 12/23/2017 Refill [facility] Faye [place] APRN, CNP Refill [address] [facility] [address] [place] [address] 4[address] [place], [place] [address] (Wo rk) Social History Tobacco Use Types [...] at Date Recorded Female 05/09/2021 7:19 PM RN CLINICAL COORDINATOR documented as of this encounter Nursing Notes Zina Kenny RN - 12/25/2017 11:36 AM CDT Last visit: 01-11-17 Recommended F/U: 3 months Next visit: 02-13-18 Labs: CBC completed on 01-03-17, Creatinine & GFR completed on 08-14-16 Chronic medication: yes Since creatinine is over 15 months GI RN is not able to refill per refill medication protocol. Routing to field artillery fire control man provider as Faye is out of office for a week. Zina Kenny RN - 12/24/2017 8:51 AM CDT From: Idania Duarte To: Faye Hinojosa APRN, CNP Sent: 12/23/2017 1:53 PM CDT Subject: Medication Renewal Request Original authorizing provider: Faye Hinojosa APRN, CNP [facility] L[facility] Carlson would like a refill of the following medications: LIALDA 1.2 g enteric coated tablet [Faye Hinojosa APRN, SIERRA] Preferred pharmacy: [facility] [address] [address] Comment: documented in this encounter Plan of Treatment Upcoming Encounters Date Type Specialty Care Team Description 05/05/2022 Appointment Chemo Therapy/Infusion Services 09/15/2022 Telemedicine Gastroenterology Eusebio Haines MD [address] [place] [address] (Wo rk) documented as of this encounter Visit Diagnoses Not on filedocumented in this encounter Care Teams Fisheries Specialist Relationship Specialty Start Date End Date Sheeba Castillo APRN, PAVER OPERATOR PCP - General Nurse Practitioner 07/20/[address] [phone] documented as of this encounter
--- OUTSIDE RECORDS SUMMARY | 2022-03-20 16:12 | XMS_ITS | Encounter Summary ---
:1975 Author Organization [employer] Address [address], [place] [address] Care Team Providers Name Role Phone Sheeba Castillo APRN, SIERRA Primary Care Provider Reason for Visit Reason Comments Dental Hygiene tender gums [place] L due to irri tation by tbrush Encounter Details Date Type Department Care Team Description 03/28/2017 Office Visit Zap Eileen Dee De ntal Hygiene (tender Dentistry RDH [place] to [address] [place] [address] [address] [place] [address] irritation by tbrush) [place] [address] Social History Tobacco Use Types Packs/Day Years [...] at Date Recorded Female 05/09/2021 7:19 PM CAGE SHIFT MANAGER documented as of this encounter Last Filed Vital Signs Vital Sign Reading Time Taken Comments Blood Pressure 138/89 03/28/2017 4:01 PM CDT Pulse 89 03/28/2017 4:01 PM CDT Temperature - - Respiratory Rate - - Oxygen Saturation - - Inhaled Oxygen Concentration - - Weight - - Height - - Body Mass Index - - documented in this encounter Patient Instructions Patient InstructionsEileen Nava RDH - 03/28/2017 4:00 PM CDT Your next hygiene recall is due 09/24/2017 YOUR PERSONAL DENTAL RISK REPORT Caries (Tooth Decay) Risk Periodontal (Gum Disease) Risk Oral Cancer Risk High Moderate Low X This exam High Moderate Low X This exam Elevated Low X This exam Your risk level: Low Congratulations. The results of your dental risk assessment indicate you are atlow risk for tooth decay. Making healthy life style choices including brushing twice a day; daily flossing and healthy dietary choices should help you maintain this low risk. We look forward to seeing you at your next visit. Your risk level: Low Congratulations. The results of your dental risk assessment indicate you are at low risk for gum disease. Making healthy life style choices including brushing twice a day; daily flossing and not using tobacco should help you maintain this low risk. Your risklevel: Low Congratulations. The results of your dental risk assessment indicate you are at low risk for oral cancer. Making healthy life style choices such as not using tobacco and low to moderate alcohol use should help you maintain this low risk. We look forward to seeing you at your next. Caries (Tooth Decay) Risk Periodontal (Gum Disease) Risk Oral Cancer Risk Your risk factors Your risk factors Your risk factors How to reduce your risk Recall at 6-12 months How to reduce your risk How to reduce your risk documented in this encounter Progress Notes Adelia Montalvo DDS - 03/28/2017 4:00 PM CDT RECALL EXAM NOTE Chief Complaint Patient presents with ??? Dental Hygiene tender gums [place] L due to irritation by tbrush Chart Review ?? Reviewed health history, dental history, problem list, periodontal charting and radiographs with the patient Soft tissue, head and neck examination ?? Lips: normal ?? Tongue: normal ?? Palate: normal ?? Throat: normal ?? Floor of the mouth: normal ?? Mucosa: normal ?? Head and neck: normal TMD Evaluation ?? Palpation pain: none ?? Joint sounds: none ?? Pain with range of motion: none Occlusal examination ?? Angle relationship: Right molar: class III Right cuspid: class III Left molar: class III Left cuspid:class III ?? Maxillary midline: within normal limits ?? Mandibular midline: within normal limits ?? Overbite: 2 mm ?? Overjet: 2 mm ?? Crossbite: none ?? Space loss: none ?? Crowding: mild ?? Occlusion: all teeth ?? Attrition: normal ?? Erosion: absent ?? Overall occlusal relationship: stable Cosmetic concerns ?? Patient???s perception: acceptable ?? Dentist???s perception: acceptable Treatment Review and Follow-up ?? Dental Findings: were described to the patient and they did express understanding. ?? Treatment options and prognosis: were discussed ?? Informed patient consent: was obtained after all questions were answered. ?? Recommended Recall Examination: 6 months Recall prophy: 6 months ?? Planned Recall Examination: 6 months Recall prophy: 6 months Adelia Montalvo DDS 03/28/2017, 4:27 PM Eileen Nava, [facility] - 03/28/2017 4:00 PM CDT PROPHY NOTE Collaborative Agreement: ?? Patient consents to have charting and prophylaxis by the dental hygienist performed with the understanding that this care is not a substitute for examination by a dentist. Presentation ?? Oral Hygiene: normal ?? Plaque: localized; light; supra-gingival ?? Calculus:localized; light; supra-gingival ?? Stain: localized; light; coffee/tea ?? Bleeding: localized; light ?? Gingival tissue: normal ?? Mucogingival concerns: absent Activities ?? Treatment included: hand scale, essential selective polishing and flossed all contacts Patient Education ?? Discussion topics: caries risk assessment, oral cancer risk and periodontal risk Remineralization counseling ?? Patient's readiness for change is: maintenance ?? Caries risk factors to be addressed: none ?? Patient has been compliant with previous recommendations to address caries risk ?? Reviewed: reviewed diet ?? Procedures: none ?? Today these health education materials were distributed: none ?? Prescriptions for pharmacy and/or over the counter products: none ?? Follow up plan: 6 month recall ?? Eileen Nava 03/28/2017, 5:04 PM Completed dental procedures in this visit There are no completed dental procedures in this visit. documented in this encounter Plan of Treatment Upcoming Encounters Date Type Specialty Care Team Description 05/05/2022 Appointment Chemo Therapy/Infusion Services 09/15/2022 Telemedicine Gastroenterology Eusebio Haines MD [address] [place] [address] (Wo rk) documented as of this encounter Procedures Procedure Name Priority Date/Time Associated Diagnosis Comme nts PERIODIC ORAL Routine 04/03/2017 7:16 AM CDT Localized gingiva l EVALUATION recession PROPHYLAXIS-ADULT Routine 03/28/2017 4:50 PM CDT Localized gin gival RECALL recession 4 MOD EXISTING Routine 09/02/2015 12:00 AM COMPOSITE FILLING CAGE SHIFT MANAGER 31 B EXISTING COMPOSITE Routine 09/02/2015 12:00 AM FILLING CAGE SHIFT MANAGER 19 DO EXISTING Routine 09/02/2015 12:00 AM COMPOSITE FILLING CAGE SHIFT MANAGER 30 DO EXISTING Routine 09/02/2015 12:00 AM COMPOSITE FILLING CAGE SHIFT MANAGER 18 MOB EXISTING Routine 09/02/2015 12:00 AM COMPOSITE FILLING CAGE SHIFT MANAGER 28 O EXISTING COMPOSITE Routine 09/02/2015 12:00 AM FILLING CAGE SHIFT MANAGER 31 MO EXISTING Routine 09/02/2015 12:00 AM COMPOSITE FILLING CAGE SHIFT MANAGER 5 DO EXISTING COMPOSITE Routine 09/02/2015 12:00 AM FILLING CAGE SHIFT MANAGER 3 DO EXISTING COMPOSITE Routine 09/02/2015 12:00 AM FILLING CAGE SHIFT MANAGER 2 MO EXISTING COMPOSITE Routine 09/02/2015 12:00 AM FILLING CAGE SHIFT MANAGER 19 MO EXISTING Routine 09/02/2015 12:00 AM COMPOSITE FILLING CAGE SHIFT MANAGER 14 O EXISTING COMPOSITE Routine 09/02/2015 12:00 AM FILLING CAGE SHIFT MANAGER 14 LO EXISTING Routine 09/02/2015 12:00 AM COMPOSITE FILLING CAGE SHIFT MANAGER 21 O EXISTING COMPOSITE Routine 09/02/2015 12:00 AM FILLING CAGE SHIFT MANAGER 20 O EXISTING COMPOSITE Routine 09/02/2015 12:00 AM FILLING CAGE SHIFT MANAGER 13 MOD EXISTING Routine 09/02/2015 12:00 AM COMPOSITE FILLING CAGE SHIFT MANAGER 30 B EXISTING [place]ALGAM Routine 09/02/2015 12:00 AM FILLING CAGE SHIFT MANAGER 12 O EXISTING [place]ALGAM Routine 09/02/2015 12:00 AM FILLING CAGE SHIFT MANAGER 19 B EXISTING [place]ALGAM Routine 09/02/2015 12:00 AM FILLING CAGE SHIFT MANAGER documented in this encounter Visit Diagnoses Diagnosis Localized gingival recession - Primary Gingival recession, localized Gingivitis, chronic, non-plaque induced Chronic gingivitis, non-plaque induced documented in this encounter Care Teams Supervisor Veneer Relationship Specialty Start Date End Date Sheeba Castillo, ORNAMENTAL RAIL INSTALLER, REGIONAL MANAGER PCP - General Nurse Practitioner 07/20/[address] [place] [address] documented as of this encounter
--- OUTSIDE RECORDS SUMMARY | 2022-03-20 16:12 | XMS_ITS | Encounter Summary ---
:1975 Author Organization [employer] Address [address], [place] [address] Care Team Providers Name Role Phone Sheeba Castillo APRN, CNP Primary Care Provider [phone] Reason for Visit Reason Onset Date Comments Refill 12/25/2016 Encounter Details Date Type Department Care Team Description 12/25/2016 Refill [facility] [address] Hai Leigh MD Refill Gastroenterology [address] [place] [address] [place], [place] [address] [phone] Social History Tobacco Use Types Packs/Day Years Used Date Smoking Tobacco: Former Cigarettes 0.3 15 Quit : 04/25/2015 Smokeless Tobacco: Never Alcohol Use Standard Drinks/Week Comments No 0 (1 standard drink = 0.6 oz pure [...] at Date Recorded Female 05/09/2021 7:19 PM INFECTIOUS WASTE TECHNICIAN documented as of this encounter Nursing Notes Zina Kenny RN - 12/25/2016 12:53 PM CDT From: Idania Duarte To: Yimi Leigh MD Sent: 12/25/2016 10:55 AM CDT Subject: Medication Renewal Request Original authorizing provider: MD Idania Aldana Duarte would like a refill of the following medications: mesalamine (LIALDA) 1.2 G enteric coated tablet [Yimi Leigh MD] Preferred pharmacy: [facility] [address] [address] Comment: documented in this encounter Plan of Treatment Upcoming Encounters Date Type Specialty Care Team Description 05/05/2022 Appointment Chemo Therapy/Infusion Services 09/15/2022 Telemedicine Gastroenterology Eusebio Haines MD [address] [place], [place] [id number] (Wo rk) documented as of this encounter Visit Diagnoses Diagnosis Ulcerative pancolitis without complicati on ([facility]) documented in this encounter Care Teams Stereotype Finisher Relationship Specialty Start Date End Date Sheeba Castillo, SUPERVISOR GROVE, LOUVER MORTISER OPERATOR PCP - General Nurse Practitioner 07/20/16 [address] [place] [id number] documented as of this encounter
--- OUTSIDE RECORDS SUMMARY | 2022-03-20 16:12 | XMS_ITS | Encounter Summary ---
:1975 Author Organization [employer] Address [address], [place] [address] Care Team Providers Name Role Phone Sheeba Castillo APRN, COFFEE BLENDER Primary Care Provider [phone] Reason for Visit Reason Comments CONSULT ulcerative rectosigmoiditis, C-diff Encounter Details Date Type Department Care Team Description 08/22/2016 Initial [facility] Yimi Leigh Ulce rative pancolitis without complication (HRC) (Primary Dx); 6500 Enterocolitis due to Clostridium diffici le Gastroenterology [address] [facility] [place] [address] [place] [address] [phone] Social History Tobacco Use Types Packs/Day Years [...] at Date Recorded Female 05/09/2021 7:19 PM CAFETERIA ATTENDANT documented as of this encounter Last Filed Vital Signs Vital Sign Reading Time Taken Comments Blood Pressure 130/78 08/22/2016 4:01 PM CAFETERIA ATTENDANT Pulse 96 08/22/2016 4:01 PM CAFETERIA ATTENDANT Temperature - - Respiratory Rate 16 08/22/2016 4:01 PM CAFETERIA ATTENDANT Oxygen Saturation - - Inhaled Oxygen Concentration - - Weight 90.1 kg (198 lb 9.6 oz) 08/22/2016 4:01 PM CAFETERIA ATTENDANT Height 166.4 cm (5' 5.5) 08/22/2016 4:01 PM CAFETERIA ATTENDANT Body Mass Index 32.55 08/22/2016 4:01 PM CAFETERIA ATTENDANT documented in this encounter Patient Instructions Patient InstructionsShYimi bailon MD - 08/22/2016 5:18 PM CST 1- Take 4 lialda a day 2- Continue the specified vanco wean 3- Prednisone wean: 20 mg a day for 6 days 17.5 mg a day for days 15 mg a day for 6 days 12.5 mg a day for 6 days 10 mg a day for 6 days 7.5 mg a day for 6 days 5 mg a day for 6 days 2.5 mg a day for 6 days Then stop 4- Call immediately with recurrent symptoms 5- Obtain pneumococcal vaccination 6- Obtain a stool specimen 1 week before your next GI clinic visit TERIA ATTENDANT documented in this encounter Progress Notes Yimi Leigh MD - 08/23/2016 4:26 PM CST NAME: IGGY DUARTE MR#: [id number] CSN: [id number] AUTHENTICATING CLINICIAN: Yimi Leigh MD CONFIRM #: [id number] LOC: 3533 CLINIC PROGRESS NOTE DATE OF VISIT: 08/22/2016 : 1975 Iggy Duarte is a 41-year-old woman who presents for followup of ulcerative colitis. Inflammatory Bowel Disease History 1. Disease: UC 2. Age at diagnosis: 40 3. Extent: proctitis, the proximal spread on recent CT pancolitis during episode of C. Diff infection 4. Perianal involvement: no 5. Extraintestinal manifestations: myalgias 6. Prior IBD treatment: ?a.Oral 5 ASA: Lialda ?b. Topical 5 ASA: canasa ?c. Topical steroids: proctofoam ?d. Corticosteroids: prednisone multi week course at diagnosis that induced aremission? 7. Current therapy/date: prednisone, canasa, Lialda 07/2016 8. Recent imaging: Diffuse wall thickening involving nearly the entire colon with some sparing of the cecum, sigmoid colon and rectum is again noted. There is slightly greater involvement of the distal descending and sigmoid colon than on the prior study. Mild pericolonic inflammatory stranding is again noted. No pneumatosis or free air. ?? 9. Prior surgery: no surgery? During most of the 1st year after the diagnosis of ulcerative colitis that occurred in a background of irritable bowel syndrome with diarrhea, Iggy had done well. 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 She took Lialda for a few months but for the remainder of 2015 used Canasa suppositories no more frequently than every other night. In June she developed new symptoms of an epigastric pain. Upper GI endoscopy was unremarkable, ultrasound demonstrated cholelithiasis. She received cholecystectomy and the appropriate prophylactic antibiotics. The gallbladder demonstrated minimal cholecystitis. The cholecystectomy was performed on July 12, 2016. Within 5 days she develops significant diarrhea with some hematochezia and nausea. This was intense as she had experienced. C difficile PCR was negative. A course of high-dose prednisone beginning at 40 mg a day was initiated on July 20. Unfortunately, she continued to decline and was admitted to [facility] on . She was demonstrated to be Clostridium difficile positive on PCR at that point. CT scan showedpan colitis. Flexible sigmoidoscopy was felt more consistent with ulcerative colitis. Biopsies did not show cytomegalovirus infection. Should be noted that at the time of the cholecystectomy the hepatic flexure of the colon was reported to be inflamed. During the admission she was started on vancomycin. Given that this represents a relapse as she had an episode of Clostridium difficile colitis in 2011 and the fact that it is anticipated she would be immunosuppressed, it was decided that she should receive a prolonged course to include weaning and then pulse dose therapy. She also was started on hydrocortisone which was transitioned to prednisone. That has now been weaned down to 20 mg a day. She indicates for the past week she has experienced a number of signs of complete resolution. Although she still has not noted return to her normal energy level, it is much improved. She denies recently experiencing hematochezia. Stools are formed. Diffuse joint arthropathy she associates with her prior flare has resolved. She is back to normal diet and experiencing no cramping abdominal pain on that diet. Prednisone dose is presently 20 mg a day and the vancomycin dose is 125 mg b.i.d. She does not use nonsteroidal anti-inflammatory agents. PAST MEDICAL HISTORY: Patient profile in [facility] reviewed. MEDICATIONS: Patient profile in Epic reviewed. ADVERSE DRUG REACTIONS: Patient profile in Epic reviewed. PHYSICAL EXAM: GENERAL: Reveals the patient to be an alert, well-groomed woman in no acute distress. VITAL SIGNS: As charted in Epic were noted and within normal limits. ABDOMEN: Soft and nontender. I was unable to appreciate masses or organomegaly. LABORATORY EVALUATION: Laboratory testing from 1 week ago included a creatinine of 0.6. Last CBC was from 3 [place] [address], and hemoglobin 11.8 with a platelet count of 592,000. Liver enzyme test battery 1 week after the cholecystectomy showed mild increases in transaminases and alkaline phosphatase. The C-reactive protein 1 week ago was 0.6, down from a peak of 13.1 during her recent admission. ASSESSMENT: Iggy Duarte is a 41-year-old woman seen in followup to discuss maintenance therapy for ulcerative colitis. She had a rather mild manifestation of inflammatory bowel disease, ulcerative proctitis, which had been managed with on-demand Canasa suppositories until recent cholecystectomy associated with a ntibiotic use. She subsequently was demonstrated to be C diff positive although endoscopic appearance was more consistent with ulcerative colitis. She has responded well to vancomycin and a course of prednisone. Potential explanations for this recent flare include 1)ulcerative colitis with the C diff positivity indicating that she was colonized but without active injury from the C diff infection; 2) ulcerative colitis exacerbated by a Clostridium difficile; or 3) C. diff colitis. The latter explanation is unlikely. Most likely explanation for symptoms is that she had ulcerative colitis exacerbated by C difficile as it took addition of vancomycin after 6 days of prednisone therapy to begin to see any improvement. Many people when the C diff is effectively treated will remit to their pre-existing severity of inflammatory bowel disease. If that were to be the case, she should be able to be managed effectively with mesalamine compounds. However, for some people, the C difficile advances the severity of the underlying inflammatory bowel disease. Given the response to prednisone and vancomycin and her concerns about the use of prolonged immunosuppressive therapy combined with her relatively mild disease history in 2016, Iggy would like another attempt at maintenance of disease remission on a fulldose of Lialda. I am concerned, given some inflammation was noted in the hepatic flexure at cholecystectomy, though that the inflammatory bowel disease was progressing to a flare prior to the development of a Clostridium difficile, in which case one would expect advanced therapeutics might be required. It is important to note, though, at that time she was on no therapy for ulcerative colitis at the onset of a flare and did not have her typical symptoms. PLAN: 1. Continue weaning of the prednisone. She was provided written wean. 2. She will compete pulse dose therapy of vancomycin as specified. 3. She will resume Lialda 4.8 g a day and will stay on a full treatment dose of that for at least 1 year. 4. She will obtain a fecal calprotectin prior to return visit with Faye Hinojosa in 2 months. 5. At the earliest sign of recurrence, she is to call to discuss implementation of advanced therapeutics. Total time 40 minutes. Education and counseling time 30 minutes. CC: RITA GARCIA [address] [facility] [address] [place] [address] MJS:MEDQ C: CONFIRM #: [id number] TERIA ATTENDANT documented in this encounter Plan of Treatment Upcoming Encounters Date Type Specialty Care Team Description 05/05/2022 Appointment Chemo Therapy/Infusion Services 09/15/2022 Telemedicine Gastroenterology Eusebio Haines MD [address] [place] [address] (Wo rk) documented as of this encounter Results Calprotectin Fecal (01/04/2017 5:14 AM CDT) P athologist Signature Calprotectin <16 <=50 ug/g PN SOFT Fecal Comment: INTERPRETIVE INFORMATION: Calprotectin, Fecal ??50 ug/g or less: Normal ??51-120 ug/g: Borderline elevated, carrie t should be ??re-evaluated in 4-6 weeks. ??121 ug/g or greater: Abnormal Performed by [facility] [address] [place] [id number] [email or web address], Romulo Pritchett MD - Lab . Director Specimen Anatomical Collection Method Collection Time Receive d Time (Source) Location / / Volume Laterality 01/04/2017 5:14 AM 7 8:57 CDT PM CDT Narrative PN SOFT - 01/06/2017 8:46 PM CDT Performed at [facility] [address] [place] [address] CLIA number [id number] Yimi Leigh MD LAB_1 Performing Organization Address City/State/ZIP Code Phon e Number PN SOFT [address] [place], [place] [address] [phone] documented in this encounter Visit Diagnoses Diagnosis Ulcerative pancolitis without complicati on (HRC) - Primary Enterocolitis due to Clostridium diffici le Intestinal infection due to clostridium difficile Ulcerative pancolitis without complicati on (HRC) documented in this encounter Care Teams Patient Partner Relationship Specialty Start Date End Date Sheeba Castillo, AUDIO VISUAL MANAGER, COFFEE BLENDER PCP - General Nurse Practitioner 07/20/16 [address] [place] MAG[place] Dinh [id number] documented as of this encounter
--- OUTSIDE RECORDS SUMMARY | 2022-03-20 16:12 | XMS_ITS | Encounter Summary ---
:1975 Author Organization [employer] Address [address], [place] [address] Care Team Providers Name Role Phone Sheeba Castillo APRN, SIERRA Primary Care Provider [phone] Encounter Details Date Type Department Care Team Description 01/22/2017 Lab Visit [facility] Well adult exam [address] [place], [place] [address] Social History Tobacco Use Types Packs/Day Years Used Date Smoking Tobacco: Former Cigarettes 0.3 15 Quit : 04/25/2015 Smokeless Tobacco: Never Alcohol Use Standard Drinks/Week Comments Yes 0 (1 standard drink = 0.6 oz [...] at Date Recorded Female 05/09/2021 7:19 PM RFID ENGINEER documented as of this encounter Plan of Treatment Upcoming Encounters Date Type Specialty Care Team Description 05/05/2022 Appointment Chemo Therapy/Infusion Services 09/15/2022 Telemedicine Gastroenterology Eusebio Haines MD [address] [place], [place] [address] (Wo rk) documented as of this encounter Procedures Procedure Name Priority Date/Time Associated Diagnosis Comme nts LIPID PANEL AND Routine 01/22/2017 11:50 AM Well adult exam Re sults for this DIRECT LDL(IF CDT procedure are in NEEDED) the results section. documented in this encounter Results Lipid Panel and Direct LDL(If Needed) (01/22/2017 11:50 AM CDT) Analysis Performed At Patho logist Time Signature Cholesterol 182 0 - 199 PN SOFT mg/dL Triglycerides 107 4 - 149 PN SOFT mg/dL HDL Cholesterol 56 >39 mg/dL PN SOFT Cholesterol/HDL 3.3 PN SOFT Ratio Screen LDL Calculated 105 19 - 130 PN SOFT mg/dL Length Of Fast 14.0 PN SOFT Specimen Anatomical Collection Method Collection Time Receive d Time (Source) Location / / Volume Laterality 01/22/2017 11:50 01/22/2017 AM CDT 11:50 AM CDT Narrative PN SOFT - 01/22/2017 12:58 PM CDT Performed at [facility], [address] [place] [address] CLIA number [id number] Idania Andrade MD LAB_1 Performing Organization Address City/State/ZIP Code Phon e Number PN SOFT [address] [place] [address] [phone] documented in this encounter Visit Diagnoses Diagnosis Well adult exam Routine general medical examination at a health care facility documented in this encounter Care Teams Fulfillment Representative Relationship Specialty Start Date End Date Sheeba Castillo APRN, FLAT CUTTER PCP - General Nurse Practitioner 07/20/[address] [place] [address] documented as of this encounter
--- OUTSIDE RECORDS SUMMARY | 2022-03-20 16:12 | XMS_ITS | Encounter Summary ---
:1975 Author Organization [email or web address] Address [address], [place] [address] Care Team Providers Name Role Phone Sheeba Castillo APRN, SIERRA Primary Care Provider [phone] Encounter Details Date Type Department Care Team Description 01/04/2017 Lab Visit [place] [facility] Ulcerative pancolitis [address] [facility] without complication (HRC) [place], [place] [address] Social History Tobacco Use Types Packs/Day Years [...] at Date Recorded Female 05/09/2021 7:19 PM HEAD STOCK TRANSFER CLERK documented as of this encounter Plan of Treatment Upcoming Encounters Date Type Specialty Care Team Description 05/05/2022 Appointment Chemo Therapy/Infusion Services 09/15/2022 Telemedicine Gastroenterology Eusebio Haines MD [address] [place], [place] [address] (Wo rk) documented as of this encounter Procedures Procedure Name Priority Date/Time Associated Diagnosis Comme nts FECAL CALPROTECTIN Routine 01/04/2017 5:14 AM Ulcerative panco litis Results for this CDT without complication procedu re are in (HRC) the results section. documented in this encounter Results Calprotectin Fecal (01/04/2017 5:14 AM CDT) P athologist Signature Calprotectin <16 <=50 ug/g PN SOFT Fecal Comment: INTERPRETIVE INFORMATION: Calprotectin, Fecal ??50 ug/g or less: Normal ??51-120 ug/g: Borderline elevated, carrie t should be ??re-evaluated in 4-6 weeks. ??121 ug/g or greater: Abnormal Performed by [facility], [address] [place] [id number] [email or web address], Romulo Pritchett MD - Lab . Director Specimen Anatomical Collection Method Collection Time Receive d Time (Source) Location / / Volume Laterality 01/04/2017 5:14 AM 7 8:57 CDT PM CDT Narrative PN SOFT - 01/06/2017 8:46 PM CDT Performed at [facility] [address] [place] [address] CLIA number [id number] Yimi Leigh MD LAB_1 Performing Organization Address City/State/ZIP Code Phon e Number PN SOFT [address] [place] [address] documented in this encounter Visit Diagnoses Diagnosis Ulcerative pancolitis without complicati on (HRC) documented in this encounter Care Teams Salt Machine Operator Relationship Specialty Start Date End Date Sheeba Castillo, MEDIA AID, RIVER CROSSING SUPERVISOR PCP - General Nurse Practitioner 07/20/16 [address] [place] MAGDALENA Dinh [id number] documented as of this encounter
--- OUTSIDE RECORDS SUMMARY | 2022-03-20 16:12 | XMS_ITS | Encounter Summary ---
:1975 Author Organization [employer] Address [address], [place] [address] Care Team Providers Name Role Phone Sheeba Castillo APRN, LIGHTNING ROD ERECTOR Primary Care Provider [phone] Reason for Visit Reason Comments Dental Conversion [facility] to [place] convers ion Encounter Details Date Type Department Care Team Description 11/30/2016 Dental Conversion [facility] Adelia Montalvo, [facility] [address] [facility] [address] [place], [place] [address] [place], [place] [phone] [address] Social History Tobacco Use Types Packs/Day Years [...] Date Recorded Female 05/09/2021 7:19 PM PUBLIC ADDRESS SYSTEM OPERATOR documented as of this encounter Miscellaneous Notes Miscellaneous - Interface, In Edr Dental Conversion - 09/19/2016 12:00 AM CDT 09/19/2016: Online Appt Request: lvm to [facility] online appt documented in this encounter Plan of Treatment Upcoming Encounters Date Type Specialty Care Team Description 05/05/2022 Appointment Chemo Therapy/Infusion Services 09/15/2022 Telemedicine Gastroenterology Eusebio Haines MD [address] [place], [place] [address] (Wo rk) documented as of this encounter Visit Diagnoses Not on filedocumented in this encounter Care Teams Metal Polisher Relationship Specialty Start Date End Date Sheeba Castillo, ACCOUNTS ADJUSTABLE CLERK, LIGHTNING ROD ERECTOR PCP - General Nurse Practitioner 07/20/16 [address] [place] MAGD[place] Dinh [id number] documented as of this encounter
--- OUTSIDE RECORDS SUMMARY | 2022-03-20 16:12 | XMS_ITS | Encounter Summary ---
:1975 Author Organization [employer] Address [address], [place] [address] Care Team Providers Name Role Phone Sheeba Castillo APRN, SIERRA Primary Care Provider [phone] Encounter Details Date Type Department Care Team Description 10/12/2016 Lab Visit [facility] Ulcerative (chronic) [address] [facility] proctitis, [place] [address] complications [phone] Social History Tobacco Use Types Packs/Day Years [...] at Date Recorded Female 05/09/2021 7:19 PM COATER HELPER documented as of this encounter Plan of Treatment Upcoming Encounters Date Type Specialty Care Team Description 05/05/2022 Appointment Chemo Therapy/Infusion Services 09/15/2022 Telemedicine Gastroenterology Eusebio Haines MD [address] [place], [place] [address] (Wo rk) documented as of this encounter Procedures Procedure Name Priority Date/Time Associated Diagnosis Comme nts COMPLETE BLOOD Routine 10/12/2016 4:26 PM Ulcerative (chronic) Results for this COUNT-NO DIFF CDT proctitis, without procedur e are in complications the results section. C-REACTIVE PROTEIN Routine 10/12/2016 4:26 PM Ulcerative (revenue coordinator robinson) Results for this CDT proctitis, without procedure are in complications the results section. TSH, SENSITIVE Routine 10/12/2016 4:26 PM Ulcerative (chronic) Results for this (WITH REFLEX) CDT proctitis, without procedur e are in complications the results section. ESR Routine 10/12/2016 4:26 PM Ulcerative (chronic) R esults for this CDT proctitis, without procedure are in complications the results section. documented in this encounter Results TSH with Free T4 (if TSH Abnormal) (10/12/2016 4:26 PM CDT) athologist Signature Thyroid 1.32 0.30 - PN SOFT Stimulating 4.50 Hormone uIU/mL Specimen Anatomical Collection Method Collection Time Receive d Time (Source) Location / / Volume Laterality 10/12/2016 4:26 PM 7 9:19 CDT PM CDT Narrative PN SOFT - 10/12/2016 10:04 PM CDT Performed at [facility], [address] [place] [address] CLIA number [id number] Faye Felton APRN, CNP LAB_1 Performing Organization Address [facility] Phon e Number PN SOFT [address] [place] [address] [phone] Sedimentation Rate (10/12/2016 4:26 PM CDT) Analysis Performed At [facility] logist Time Signature Sedimentation Rate 18 0 - 20 PN SOFT mm/hr Specimen Anatomical Collection Method Collection Time Receive d Time (Source) Location / / Volume Laterality 10/12/2016 4:26 PM 7 4:26 CDT PM CDT Narrative PN SOFT - 10/12/2016 5:04 PM CDT Performed at [facility], [address] [place] [address] CLIA number [id number] Faye Felton APRN, CNP LAB_1 Performing Organization Address [facility]/ZIP Code Phon e Number PN SOFT [address] [place] [address] [phone] (ABNORMAL) C Reactive Protein (10/12/2016 4:26 PM CDT) athologist Signature CRP 1.6 (H) 0.0 - 0.5 PN SOFT mg/dL Specimen Anatomical Collection Method Collection Time Receive d Time (Source) Location / / Volume Laterality 10/12/2016 4:26 PM 7 4:26 CDT PM CDT Narrative PN SOFT - 10/12/2016 4:47 PM CDT Performed at [facility], [address] [place] [address] CLIA number [id number] Faye Felton APRN, CNP LAB_1 Performing Organization Address [facility] Phon e Number PN SOFT [address] [place] [address] CBC - Complete Blood Count No Diff (10/12/2016 4:26 PM CDT) athologist Signature White Blood Cell 7.1 3.8 - 11.0 PN SOFT Count k/cmm Red Blood Cell 4.43 3.70 - PN SOFT Count 5.20 m/cmm Hemoglobin 13.2 11.8 - PN SOFT 15.5 g/dL Hematocrit 39.4 35.0 - PN SOFT 46.0 % Mean Corpuscular 88.9 80.0 - PN SOFT Volume 100.0 fL RDW 12.6 11.0 - PN SOFT 15.0 % Platelet Count 344 140 - 450 PN SOFT k/cmm Specimen Anatomical Collection Method Collection Time Receive d Time (Source) Location / / Volume Laterality 10/12/2016 4:26 PM 7 4:26 CDT PM CDT Narrative PN SOFT - 10/12/2016 4:30 PM CDT Performed at [facility], [address] [place] [id number] CLIA number [id number] Faye Felton APRN SWISS MACHINIST LAB_1 Performing Organization Address City/[facility] Phon e Number PN SOFT [address] [place] [address] documented in this encounter Visit Diagnoses Diagnosis Ulcerative (chronic) proctitis, without complications (HRC) documented in this encounter Care Teams Ceramic Plater Relationship Specialty Start Date End Date Sheeba Castillo APRN, SWISS MACHINIST PCP - General Nurse Practitioner 07/20/16 [address] [place] Dinh [address] documented as of this encounter
--- OUTSIDE RECORDS SUMMARY | 2022-03-20 16:12 | XMS_ITS | Encounter Summary ---
:1975 Author Organization [employer] Address [address] [place] [address] Care Team Providers Name Role Phone Sheeba Castillo APRN, GIS ENGINEER Primary Care Provider [phone] Encounter Details Date Type Department Care Team Description 03/26/2017 Immunization [facility] 3931 Need f or prophylactic [facility] Flu Shot [facility] against [place], [place] influen [place] [address]176 Social History Tobacco Use Types Packs/Day Years [...] at Date Recorded Female 05/09/2021 7:19 PM PSYCHIATRIC SOCIAL WORKER SUPERVISOR documented as of this encounter Plan of Treatment Upcoming Encounters Date Type Specialty Care Team Description 05/05/2022 Appointment Chemo Therapy/Infusion Services 09/15/2022 Telemedicine Gastroenterology Eusebio Haines MD [address] [place], [place] [address] (Wo rk) documented as of this encounter Visit Diagnoses Diagnosis Need for prophylactic vaccination and in oculation against influenza documented in this encounter Care Teams Ampoule Inspector Relationship Specialty Start Date End Date Sheeba Castillo, MICRO PHOTOGRAPHER, GIS ENGINEER PCP - General Nurse Practitioner 07/20/16 [address] [place]h [address] documented as of this encounter
--- OUTSIDE RECORDS SUMMARY | 2022-03-20 16:12 | XMS_ITS | Encounter Summary ---
:1975 Author Organization [employer] Address [address], [place] [address] Care Team Providers Name Role Phone Sheeba Castillo APRN, [place] Primary Care Provider [phone] Reason for Visit Reason Comments ROUTINE HEALTH MAINTENANCE Encounter Details Date Type Department Care Team Description 12/14/2016 Office Visit [facility] Idania Andrade Well a dult exam (Primary Dx); Medicine Essential hypertension; [address] Reyna Malignant melanoma of skin of trunk, exc ept scrotum (HRC); [place] [address] [facility] Non morbid obesity due to ex cess calories [phone] [id number] Social History Tobacco Use Types Packs/Day Years [...] at Date Recorded Female 05/09/2021 7:19 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 documented as of this encounter Last Filed Vital Signs Vital Sign Reading Time Taken Comments Blood Pressure 140/84 12/14/2016 3:41 PM CDT Pulse 82 12/14/2016 3:41 PM CDT Temperature - - Respiratory Rate - - Oxygen Saturation - - Inhaled Oxygen Concentration - - Weight 84.4 kg (186 lb) 12/14/2016 3:41 PM CDT Height 166.4 cm (5' 5.5) 12/14/2016 3:41 PM CDT Body Mass Index 30.48 12/14/2016 3:41 PM CDT documented in this encounter Patient Instructions Patient InstructionsIdania Andrade MD - 12/14/2016 4:12 PM CDT Please check BPs a couple times per week for the next 2 weeks and send me the numbers. Well Visit, Ages 18 to 50: Care [...] you are older than 45 and are -Tai[place]ese or have a father or brother who got prostatecancer when he was younger than 65. When should you call for help? Watch closely for changes in your health, and be sure to contact your doctor if you have any problems or symptoms that concern you. Where can you learn more? 1. Go to [employer] or [employer]. 2. Enter P072 in the search box. Current as of: January 11, 2016 Content Version: 11.2 ?? [id number] Blurb, SAVORTEX. documented in this encounter Progress Notes Idania Andrade MD - 12/14/2016 3:45 PM CDT Subjective: Preventive Exam & Pelvic SUBJECTIVE: Patient presents for a routine preventive physical exam. The patient has the following concerns: none Past Medical History: Past Medical History: Diagnosis Date ??? BCC (basal cell carcinoma), leg 08/11/2011 ??? Chronic headaches 08/11/2011 ??? Clostridium difficile colitis 01/2012 ??? Concussion 08/11/2011 ??? HTN (hypertension) (HRC) 08/11/2011 ??? Hx of tonsillectomy 08/11/2011 ??? Irritable bowel syndrome 11/29/2002 ??? 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 Social History Main Topics ??? Smoking status: Former Smoker Packs/day: 0.25 Years: 15.00 Types: Cigarettes Quit date: 04/25/2015 ??? Smokeless tobacco: Never Used ??? Alcohol use No Comment: rarely ??? Drug use: No ??? Sexual activity: Yes Partners: Male control/ protection: OCP Other Topics Concern ??? City Water Yes ??? Exercise Yes ??? Guns In Home Yes ??? Seat Belt Yes ??? Special Diet No ??? Weight Concern Yes Social History Narrative Updated 10/2015: The patient is recently . She is stating an old friend. No children. 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 Preventive Health Assessment: Health maintenance alerts are reviewed and updated. Calcium intake is adequate. Diet: 5 fruits and veggies, minimal serving per week of red meat. 2x per week eat fast food. The patient does drink soda, monster every AM. Exercise is adequate. Bikes, walks The patient practices safe sex. Seatbelts are used at all times. Tetanus immunization is up-to-date. Sun protection is used. Recent lipid screen has not been performed. Review of Systems: With the exception of any items noted above, the remainder of the complete ROS is negative. OBJECTIVE: Vital Signs: Filed Vitals: 12/14/16 1541 BP: (!) 140/84 Pulse: 82 Weight: 186 lb (84.4 kg) Height: 5' 5.5 (1.664 m) Estimated body mass index is 30.48 kg/(m^2) as calculated from the following: Height as of this encounter: 5' 5.5 (1.664 m). Weight as of this encounter: 186 lb (84.4 kg). General: Patient alert, in NAD. HEENT: [...] ASSESSMENT/ PLAN: Idania was seen today for routine health maintenance. Diagnoses and all orders for this visit: Well adult exam - norethindrone-eth estradiol (DASETTA ) 1-35 MG-MCG tablet; Take 1 tablet by mouth daily (every24 hours). PATIENT TAKES CONTINOUSLY - Lipid Panel and Direct LDL(If Needed); Future - MM Mammogram Screening Bilat W CAD; Future Essential hypertension (HRC) She will check BPs over the next 2 weeks and send me the readings. Malignant melanoma of skin of trunk, except scrotum (HRC) Due for derm skin check. Non morbid obesity due to excess calories (HRC) Refilled, f/u 3 months. - Phentermine HCl 37.5 MG capsule; Take [...] Services 09/15/2022 Telemedicine Gastroenterology Eusebio Haines MD [address] [place], [place] [address] (Wo rk) documented as of this encounter Results Lipid Panel and Direct [...] - 01/22/2017 12:58 PM CDT Performed at [facility], [address] [place] [address] CLIA number [id number] Idania Andrade MD LAB_1 Performing Organization Address City/State/ZIP Code Phon e Number PN SOFT [address] [place] [address] documented in this encounter Visit Diagnoses Diagnosis Well adult exam - Primary Routine general medical examination at a health care facility Essential hypertension (HRC) Unspecified essential hypertension Malignant melanoma of skin of trunk, exc ept scrotum (HRC) Malignant melanoma of skin of trunk, exc ept scrotum Non morbid obesity due to excess calorie s (HRC) Well adult exam Routine general medical examination at a health care facility documented in this encounter Care Teams Ship/Rec/Doc Control Relationship Specialty Start Date End Date Sheeba Castillo APRN, AUTOMATIC BANDSAW TENDER PCP - General Nurse Practitioner 1/26/17 [address] [place] [address] documented as of this encounter
--- OUTSIDE RECORDS SUMMARY | 2022-03-20 16:12 | XMS_ITS | Encounter Summary ---
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) (Primary Dx); Gastroenterology [facility] [facility] History of Clostridium difficile colitis ; [address] [facility] [address] [facility] Irritable [place] [address] [facility] [address] [place] [address] (Wo rk) Social History Tobacco [...] at Date Recorded Female 05/09/2021 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 documented as of this encounter Last Filed Vital Signs Vital Sign Reading Time Taken Comments Blood Pressure 133/88 01/11/2017 3:41 PM CDT Pulse 94 01/11/2017 3:41 PM CDT Temperature - - Respiratory Rate 16 01/11/2017 3:41 PM CDT Oxygen Saturation - - Inhaled Oxygen Concentration - - Weight 82.1 kg (181 lb) 01/11/2017 3:41 PM CDT Height 170.2 cm (5' 7) 01/11/2017 3:41 PM CDT Body Mass Index 28.35 01/11/2017 3:41 PM CDT documented in this encounter Patient Instructions Patient InstructionsFaye Hinojosa APRN, CNP - 01/11/2017 3:40 PM CDT Loose stools may be related to not having a gallbladder anymore. Your recent labs and stool study were normal, arguing against the ulcerative colitis as a cause for the symptoms. 1. Start cholestyramine 4g once daily. If in one week no improvement, increase to twice daily. Take at lunch and evening to not interfere with absorption 2. Continue Lialda 4 pills daily 3. Return in 3 months, sooner if needed Call with questions or concerns documented in this encounter Progress Notes Faye Hinojosa APRN, CNP - 01/11/2017 3:40 PM CDT GI Clinic Follow Up - IBD Patient: Idania Duarte : 1975 MR#: [id number] [facility]#: [id number] Date of Visit: 01/11/17 Reason for visit: Ulcerative proctitis IBD Data Idania Duarte is a 41-year-old woman who presents [...] induced aremission? 7. Current therapy/date: Lialda 4.8g daily 8. Recent imaging: CT abd/pelvis 07/25/16 [...] ulcerative colitis and recurrent Cdiff infection. She has previously been followed by Eileen Bernabe NP as well as Dr. Yimi Leigh on 08/22/16. I most recently saw her on 10/12/16. Recall she was diagnosed with ulcerative proctitis at the age of 40, approximately 1 year ago. During most of the 1st year after the diagnosis of ulcerative colitis that occurred in a background of irritable bowel syndrome with diarrhea, Idania had done well.?? As indicated above, she had a multi-week course of prednisone which provided in remission for ulcerative proctitis associated with a patch of cecal inflammation.?? She took Lialda for a few mo nths but for some reason this was stopped. She was then treated with Canasa suppositories no more frequently than every other night.?? In June 2016 she developed new symptoms of an epigastric pain.?? Upper GI endoscopy was unremarkable, ultrasound demonstrated cholelithiasis.?? She received cholecystectomy and the appropriate prophylactic antibiotics.?? The gallbladder demonstrated minimal cholecystitis.?? The cholecystectomy was p erformed on July 12, 2016.?? Should be noted that at the time of the cholecystectomy the hepatic flexure of the colon was reported to be inflamed. Within 5 days she develops significant diarrhea with some hematochezia and nausea.?? This was intense as she had experienced.?? C difficile PCR was negat gregory.?? A course of high-dose prednisone beginning at 40 mg a day was initiated on July 20.?? Unfortunately, she continued to decline and was admitted to [facility] [place] on July 25.?? She was demonstrated to be Clostridium difficile positive on PCR at that point.?? CT scan showed britt colitis.?? Flexible sigmoidoscopy was felt more consistent with ulcerative colitis.?? Biopsies did not show cytomegalovirus infection.?? She was treated with oral Vancomycin. This was a relapse (first episode of Cdiff in 2011), and she was immunosuppressed, so she was advised to complete a prolonged course to include weaning and then pulse dose therapy.?? There was some concern she was not getting better and that biologics would need to be added. When she was seen in July and most recently in September, she had been improving and feeling well onLialda monotherapy. She returns today for follow up. Idania notified me on 01/03/17 that she was having some increased symptoms of loose stools after eating. Fecal calprotectin was advised, along with labs (CBC, CRP, sed rate). CBC and sed rate were normal, CRP minimally elevated at 1.7. Her fecal calprotectin was normal. Idania notes that over the last month, she's had increasing loose stools after eating. She will eat, then get some rumbling in her abdomen, followed by the urge to have a BM. Stools are mushy and yellow. She otherwise denies any melena, hematochezia. She has no significant abdominal pain. No unintentional weight loss. No nausea, vomiting. She has been using Imodium prior to eating as well as dicyclomine, but no significant improvement in her symptoms. She remains on Lialda 4.8g daily. She denies any current extraintestinal manifestations of IBD such as joint pains, oral ulcerations, skin rashes or lesions, or iritis/uveitis. Current Medications: Outpatient Medications Prior to Visit Medication Sig Dispense Refill ??? amitriptyline (ELAVIL) 25 MG tablet TAKE 1-2 TABLETS BY MOUTH NIGHTLY. (Patient not taking: Reported on 01/11/2017) 180 tablet 3 ??? Calcium Carbonate Antacid 1000 MG Take by mouth. Reported on 08/14/2016 ??? dicyclomine (BENTYL) 20 MG tablet Take 1 Tab by mouth 4 times daily as needed (Take 1 tablet by mouth 4 times daily as needed.). 360 Tab 3 ??? hydrocortisone-pramoxine (PROCTOFOAM-HC) 1-1 % rectal foam Insert 1 Applicator rectally two times a day. (Patient not taking: Reported on 08/22/2016) 10 g 2 ??? mesalamine (LIALDA) 1.2 G enteric coated tablet Take 4 Tabs by mouth daily with breakfast. Indications: Ulcerated Colon 120 Tab 11 ??? Multiple Vitamin (MULTI-VITAMIN OR) Take 1 tablet by mouth daily (every 24 hours). ??? norethindrone-eth estradiol (DASETTA ) 1-35 MG-MCG tablet Take 1 tablet by mouth daily (every 24 hours). PATIENT TAKES CONTINOUSLY 112 Tab 3 ??? ondansetron (ZOFRAN-ODT) 4 MG disintegrating tablet Take 1 Tab by mouth every 8 hours as needed.45 Tab 1 ??? Phentermine HCl 37.5 MG capsule Take 1 Cap by mouth daily. 90 Cap 0 ??? triamterene-hydrochlorothiazide (MAXZIDE-25) 37.5-25 MG tablet Take 1 tablet by mouth daily (every 24 hours). 90 tablet 4 ??? acetaminophen (TYLENOL) 325 MG tablet Take 2 Tabs by mouth every 6 hours as needed for Pain or Fever. (Patient not taking: Reported on 01/11/2017) 100 Tab 11 No facility-administered medications prior to visit. Inflammatory [...] HepB Adult (20+ yrs) 01/02/2002, 02/08/2006 ??? Hepatitis B-historical 08/09/2001 ??? Influenza (Fluarix or Fluzone 0.5, 3+ yrs) 03/23/2014, 03/24/2015, 03/23/2016 ??? TDAP (ADACEL) 07/04/2010 ??? Td 11/30/2003 [...] Value Date TPRBR 24.2 07/26/2016 O: BP 133/88 Pulse 94 Resp 16 Ht 5' 7 (1.702 m) Wt 181 lb (82.1 kg) BMI 28.35 kg/m2 GEN: Well appearing female, NAD CV: RRR, normal S1, S2, no m/r/g ABD: soft, NT, ND, no masses or organomegaly appreciated EXT: No cyanosis, clubbing, or edema LABS: Lab Results Component Value Date/Time WBC [...] Non-React 03/24/2015 ASSESSMENT: 1. Ulcerative colitis 2. History of recurrent clostridium difficile infection 3. Likely superimposed irritable bowel syndrome (IBS) Originally diagnosed with mild IBD and ulcerative proctitis, which was previously management with asneeded Canasa suppositories. Recently had cholecystectomy associated with antibiotics and demonstrated positive Cdiff. Her endoscopic appearance suggested UC. She has recovered from the most recent flare in July requiring hospitalization. Recent evaluation for post prandial loose stools including CBC, CRP, sed rate, and fecal calprotectin all unremarkable. I think her current symptoms of post prandial urgency and mushy stools may be more related to underlying IBS especially in light of normal fecal calprotectin. She is also s/p lap hiram, so may have some post cholecystectomy diarrhea. Recommend trial of cholestyramine 4g daily. If noimprovement, will increase to 4g BID. Reviewed the importance of cholestyramine from other medications to avoid absorption issues. Given negative inflammatory evaluation and probable IBS responsible for ongoing symptoms, could consider adding low dose TCA in future as well. For now, she will continue her Lialda 4.8g daily. Follow up will be arranged for 3 months. Idania was comfortable and agreeable to this plan of care. PLAN: 1. Continue Lialda 4.8g daily 2. Start cholestyramine 4g daily. If no improvement, will increase to 4g BID 3. Consider amitriptyline if no improvement 4. Follow up in 3 months, but sooner if needed Treatment plan and follow [...] Services 09/15/2022 Telemedicine Gastroenterology Eusebio Haines MD [address] [place], [place] [address] (Wo rk) documented as of this encounter Visit Diagnoses Diagnosis Ulcerative (chronic) proctitis, without complications (HRC) - Primary History of Clostridium difficile colitis Irritable bowel syndrome with diarrhea Irritable bowel syndrome documented in this encounter Care Teams Director Of Litigation Relationship Specialty Start Date End Date Sheeba Castillo, LINEN TECH, CAR LOT ATTENDANT PCP - General Nurse Practitioner 07/20/16 [address] [place] [address] documented as of this encounter
--- OUTSIDE RECORDS SUMMARY | 2022-03-20 16:12 | XMS_ITS | Encounter Summary ---
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 C-REACTIVE PROTEIN Routine 01/03/2017 3:42 PM Ulcerative colit is Results for this CDT with complication, procedure are in unspecified location the res ults (HRC) section. ESR Routine 01/03/2017 3:42 PM Ulcerative colitis Res ults for this CDT with complication, procedure are in unspecified location the res ults (HRC) section. documented in this encounter Results Sedimentation Rate (01/03/2017 3:42 PM CDT) Analysis Performed At Patho logist Time Signature Sedimentation Rate 12 0 - 20 PN SOFT mm/hr Specimen Anatomical Collection Method Collection Time Receive d Time (Source) Location / / Volume Laterality 01/03/2017 3:42 PM 7 3:42 CDT PM CDT Narrative PN SOFT - 01/03/2017 4:51 PM [place] [address] CLIA number [id number] Faye Felton APRN MOWER SHARPENER LAB_1 Performing Organization Address [facility] Phon e Number PN SOFT [address] [place] [address] (ABNORMAL) C Reactive Protein (01/03/2017 3:42 PM CDT) P athologist Signature CRP 1.7 (H) 0.0 - 0.5 PN SOFT mg/dL Specimen Anatomical Collection Method Collection Time Receive d Time (Source) Location / / Volume Laterality 01/03/2017 3:42 PM 7 3:42 CDT PM CDT Narrative PN SOFT - 01/03/2017 4:30 PM [place] [address] CLIA number [id number] Faye Felton APRN, MOWER SHARPENER LAB_1 Performing Organization Address City/[facility] Code Phon e Number PN SOFT [address] [place] [address] [phone] CBC - Complete Blood Count No Diff (01/03/2017 3:42 PM CDT) P athologist Signature White Blood Cell 8.1 3.8 - 11.0 PN SOFT Count k/cmm Red Blood Cell 4.51 3.70 - PN SOFT Count 5.20 m/cmm Hemoglobin 13.7 11.8 - PN SOFT 15.5 g/dL Hematocrit 40.2 35.0 - PN SOFT 46.0 % Mean Corpuscular 89.1 80.0 - PN SOFT Volume 100.0 fL RDW 13.2 11.0 - PN SOFT 15.0 % Platelet Count 309 140 - 450 PN SOFT k/cmm Specimen Anatomical Collection Method Collection Time Receive d Time (Source) Location / / Volume Laterality 01/03/2017 3:42 PM 7 3:42 CDT PM CDT Narrative PN SOFT - 01/03/2017 3:46 PM CDT Performed at [facility], [address] [place] [address] CLIA number [id number] Faye Felton APRN, CNP LAB_1 Performing Organization Address City/State/ZIP Code Phon e Number PN SOFT [address] [place] [address] documented in this encounter Visit Diagnoses Diagnosis Ulcerative colitis with complication, un specified location (HRC) documented in this encounter Care Teams Dairy Clerk Relationship Specialty Start Date End Date Sheeba Castillo APRN, MOWER SHARPENER PCP - General Nurse Practitioner 07/20/16 [address] [place] [address] documented as of this encounter
--- OUTSIDE RECORDS SUMMARY | 2022-03-20 16:12 | XMS_ITS | Encounter Summary ---
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 Patient advised to complete testing. Called and left message for patient to call clinic back. clinic phone number given. documented in this encounter Plan of Treatment Upcoming Encounters Date Type Specialty Care Team Description 05/05/2022 Appointment Chemo Therapy/Infusion Services 09/15/2022 Telemedicine Gastroenterology Eusebio Haines MD [address] [place], [place] [address] (Wo rk) documented as of this encounter Visit Diagnoses Not on filedocumented in this encounter Care Teams Digital Photo Printer Relationship Specialty Start Date End Date Sheeba Castillo, SPORTS MANAGER, INFORMATION SECURITY RISK ANALYST PCP - General Nurse Practitioner 07/20/16 [address] [place] [id number] documented as of this encounter
--- OUTSIDE RECORDS SUMMARY | 2022-03-20 16:12 | XMS_ITS | Encounter Summary ---
:1975 Author Organization [employer] Address [address], [place] [address] Care Team Providers Name Role Phone Sheeba Castillo APRN, CNP Primary Care Provider Reason for Visit Reason Comments Care Coordination Encounter Details Date Type Department Care Team Description 04/10/2017 Care Conference [facility] Sheeba Castillo, [facility] [place] [address] [facility] [address] [place] [address] [place], [place] [address] (Wo rk) Social History Tobacco Use Types [...] at Date Recorded Female 05/09/2021 7:19 PM CARE PROGRAM DIRECTOR documented as of this encounter Progress Notes Manfred Ortiz LPN - 04/10/2017 2:46 PM CDT Team Care Conference A multidisciplinary team, including Sheeba Castillo APRN, CNP convened to discuss Idania Duarte. The goals of the conference are to improve bailey outcomes, reduce the total cost of care, and provide a coordinated care experience for her. Assessment: The problem list in [facility] was not updated. Health maintenance was not reviewed and updated. The patient is due for Physical with PCP. Plan: It was determined that Idania Duarte will benefit from the following: Physical No flowsheet data found. This encounter was routed to the appropriate team members for follow-up and continuity of care. Manfred Ortiz LPN Sheeba Castillo APRN, CNP - 04/10/2017 2:45 PM CDT Frontline LM for patient to schedule annual physical. documented in this encounter Plan of Treatment Upcoming Encounters Date Type Specialty Care Team Description 05/05/2022 Appointment Chemo Therapy/Infusion Services 09/15/2022 Telemedicine Gastroenterology Eusebio Haines MD [address] [place], [place] [address] (Wo rk) documented as of this encounter Visit Diagnoses Not on filedocumented in this encounter Care Teams Farmer [employer] Relationship Specialty Start Date End Date Sheeba Castillo APRN, CNP PCP - General Nurse Practitioner 07/20/16 [address] [place] [address] documented as of this encounter
--- OUTSIDE RECORDS SUMMARY | 2022-03-20 16:12 | XMS_ITS | Encounter Summary ---
:1975 Author Organization [employer] Address [address] [place] [address] Care Team Providers Name Role Phone Sheeba Castillo APRN, [facility] Primary Care Provider [phone] Reason for Visit Reason Comments Refill Phentermine HCl 37.5 MG caps ule [Pharmacy Med Name: PHENTERMINE HCL 37.5MG CAPS] Encounter Details Date Type Department Care Team Description 03/01/2017 Refill [facility] Iggy Hernandez MD Refill (Phentermine HCl [address] 37.5 MG capsule [address] [place], [place] [Pharmacy Med Name: [place] [address] PHENTERMINE HCL 37.5MG [phone] (Wo rk) CAPS]) Social History Tobacco Use [...] at Date Recorded Female 05/09/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 If she is out I can send a few tablets until she is able to get back in.Thx Yuly Vargas - 03/01/2017 9:41 AM CDT Did this rx get refilled or does she need appt for refill? Matilde Vera - 03/01/2017 9:37 AM CDT Please see note re appt Iggy Hernandez MD - 03/01/2017 9:37 AM CDT She is due for f/u. This medicine needs close monitoring. Interface, Out Surescripts Prov Query - 03/01/2017 5:35 AM CDT Phentermine HCl 37.5 MG capsule [Pharmacy Med Name: PHENTERMINE HCL 37.5MG CAPS] Medication started: 10/12/2016 Last ordered by IGGY HERNANDEZ: 12/14/2016 (77 days ago) QTY: 90, Refills: 0, Sig: take 1 cap by mouth daily. (changed but equivalent) -> This medication cannot be delegated per protocol. Last qualifying visit: 12/14/2016 (with IGGY HERNANDEZ) Next scheduled visit: None Powered by Detectent, Reference: [id number], 03/01/2017 5:35:02 AM CDT, Pool: ILRIANO CARMELITA REFILL ([id number]) Interface, Out Ranker Query - 03/01/2017 5:35 AM CDT No Careplan note found by [employer]ent. documented in this encounter Plan of Treatment Upcoming Encounters Date Type Specialty Care Team Description 05/05/2022 Appointment Chemo Therapy/Infusion Services 09/15/2022 Telemedicine Gastroenterology Eusebio Haines MD [address] [place], [place] [id number] (Wo rk) documented as of this encounter Visit Diagnoses Not on filedocumented in this encounter Care Teams Electrical Tech Relationship Specialty Start Date End Date Sheeba Castillo, HEATING UNIT INSTALLER, STATE EPIDEMIOLOGIST PCP - General Nurse Practitioner 07/20/16 [address] [address] MAGDALENA Dinh [phone] documented as of this encounter
--- OUTSIDE RECORDS SUMMARY | 2022-03-20 16:12 | XMS_ITS | Encounter Summary ---
:1975 Author Organization [employer] Address [address], [place] [address] Care Team Providers Name Role Phone Sheeba Sandoval APRN, [facility]RA Primary Care Provider [phone] Reason for Visit Reason Comments Refill DASETTA 1-35 MG-MCG tab let [Pharmacy Med Name: DASETTA 35 1-35MG-MCG TABS] Encounter Details Date Type Department Care Team Description 11/21/2016 Refill [facility] Sheeba Sandoval, Ref ill (DASETTA Medicine [facility] 1-35 MG-MCG tablet [address] [address] [address] [Pharmacy Med Name: [place] [address] [place] [address] DASETTA /35 1-35MG-MCG [phone] (Wo rk) TABS]) Social History Tobacco Use [...] at Date Recorded Female 05/09/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 Requested Prescriptions Signed Prescriptions Disp Refills ??? norethindrone-eth estradiol (DASETTA /35) 1-35 MG-MCG tablet 112 Tab 0 Sig: Take 1 tablet by mouth daily (every 24 hours). PATIENT TAKES CONTINOUSLY Authorizing Provider: SHEEBA SANDOVAL Ordering User: JULY TILLEY Interface, Out Surescripts Prov Query - 11/21/2016 12:53 PM CDT DASETTA 1/35 1-35 MG-MCG tablet [Pharmacy Med Name: DASETTA 1/35 1-35MG-MCG TABS] Medication started: 03/03/2014 Last ordered by SHEEBA SANDOVAL: 11/24/2015 (363 days ago) QTY: 112, Refills: 4, Sig: take 1 tablet by mouth daily (every 24 hours). patient takes continously (changed) -> This medication may not have been authorized by the requested provider. -> The requested sig has changed from the last order. -> Refill x 3 months (courtesy refill. overdue for an office visit) -> Calculate quantity and refills manually. They could not be estimated due to missing or unreadable information. Last qualifying visit: 11/18/2015 (with SHEEBA SANDOVAL) (A more recent visit (in Family Practice) was found) Next scheduled visit: 12/14/2016 (in Family Practice) SBP: 117 mm Hg on 08/04/2016 DBP: 85 mm Hg on 08/04/2016 Powered by Kids Note, Reference: [id number], 11/21/2016 12:53:21 PM CDT, Pool: DEANDRA FP REFILL ([id number]) documented in this encounter Plan of Treatment Upcoming Encounters Date Type Specialty Care Team Description 05/05/2022 Appointment Chemo Therapy/Infusion Services 09/15/2022 Telemedicine Gastroenterology Eusebio Haines MD [address] [place], [place] [address] (Wo rk) documented as of this encounter Visit Diagnoses Not on filedocumented in this encounter Care Teams Fingerprint Clerk Relationship Specialty Start Date End Date Sheeba Sandoval, PRINCIPLE INDUSTRIAL HYGIENIST, METAL PRECISION MACHINE ASSEMBLER PCP - General Nurse Practitioner 07/20/16 [address] [address] MAGDALENA Dinh [id number] documented as of this encounter
--- OUTSIDE RECORDS SUMMARY | 2022-03-20 16:12 | XMS_ITS | Encounter Summary ---
:1975 Author Organization [employer] Address [address], [place] [address] Care Team Providers Name Role Phone Sheeba Castillo APRN, CNP Primary Care Provider [phone] Reason for Visit Reason Comments Follow-up IBD Encounter Details Date Type Department Care Team Description 10/12/2016 Office Visit Faye Deleon, Ulcerative (chronic) proctitis, without complications (Primary Dx); Gastroenterology [facility] Enterocolitis due to Clostridium diffici le; [address] 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 Continue Lialda 4 pills per day 2. Continue dicyclomine up to 4 pills daily 3. Ok to use Imodium as needed 4. Stool specimen 5. Blood tests today 6. Try the low FODMAPs diet 7. If the labs and stool study are negative for inflammation, suspect your symptoms are secondary toIBS. If the labs and imaging show significant inflammation, may need to consider Humira or Remicade 8. Follow up in 3 months, sooner if needed Call or MyChart any time with questions or concerns documented in this encounter Progress Notes Faye Hinojosa APRN, CNP - 10/12/2016 3:41 PM CDT GI Clinic Follow Up - IBD Patient: Idania Duarte : 1975 MR#: [id number] [facility]#: [id number] Date of Visit: 10/12/2016 Reason for visit: Ulcerative proctitis IBD Data [...] previously been followed by Eileen Bernabe NP and most recently seen byDr. Yimi Leigh on 08/22/16. 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 During most of the 1st year after the diagnosis of ulcerative colitis that occurred in a background of irritable bowel syndrome with diarrhea, Idania had done well.?? As indicated above, she had a multi-week course of prednisone which provided in remission for ulcerative proctitis associated with a patch of cecal inflammation.?? She took Lialda for a few months but for some reason this was stopped. [...] continued to decline and was admitted to [facility] on July 25.?? She was demonstrated to [...] that biologics would need to be added. Most recently she saw Dr. Leigh on 08/22/16. They reviewed biologics, but as she was improving, it was decided to continue with Lialda and prednisone wean. She returns today for follow up. She continueson Lialda 4.8g daily. She is not on any current rectal therapies (steroid or 5-ASA). She finished the pulsed Vancomycin taper on August 30, 2016. She recently finished the prednisone taper about 10 days ago. She notes she was feeling sick on the prednisone. She further clarifies this by stating she felt run down, fatigued, tired. She has about 3 BMs per day. These are mushy, but not watery. No further rectal bleeding. She is back to a normal diet and no further abdominal cramping. She is not having any nocturnal stools. She notes some symptoms she is not sure if they are due to IBS or ulcerative proctitis. Usually these are related to post prandial looser stools. Lettuce is a trigger. She has been unable to find othertriggers. She does use dicyclomine 10mg before meals which is helpful. She uses Imodium as needed. She notes much less frequent now than prior to her hospitalization. She has no upper GI symptoms such as nausea, vomiting, reflux or heartburn. Overall, Idania is feeling much better than during her hospitalization. She denies any current extraintestinal manifestations of IBD such as joint pains, oral ulcerations, skin rashes or lesions, or iritis/uveitis. Current Medications: Outpatient Prescriptions Prior to Visit Medication Sig Note Dispense Refill ??? acetaminophen (TYLENOL) 325 MG tablet Take 2 Tabs by mouth every 6 hours as needed for Pain or Fever. (Patient not taking: Reported on 08/14/2016) 100 Tab 11 ??? amitriptyline (ELAVIL) 25 MG tablet TAKE 1-2 TABLETS BY MOUTH NIGHTLY. 180 tablet 3 ??? Calcium Carbonate Antacid [...] daily (every 24 hours). ??? norethindrone-eth estradiol (NORINYL,ORTHONOVUM) 1-35 MG-MCG tablet Take 1 tablet by mouth daily(every 24 hours). PATIENT TAKES CONTINOUSLY 112 tablet 4 ??? ondansetron (ZOFRAN-ODT) 4 MG disintegrating tablet Take 1 Tab by mouth every 8 hours as needed.(Patient not taking: Reported on 08/14/2016) 45 Tab 1 ??? predniSONE (DELTASONE) 10 MG tablet 40 mg daily x 2 weeks, then 30 mg/day x 1 wk, then 20 mg/d x1 wk, then decrease by 2.5 mg each wk until off. (Combined w 2.5 mg tabs as needed) Indications: Ulcerative colitis 08/22/2016: Taking 20 mg daily 100 Tab 0 ??? predniSONE (DELTASONE) 2.5 MG tablet With 10 mg tabs as needed when taper gets to 17.5 mg/d and lower. Indications: Ulcerative colitis (Patient not taking: Reported on 08/22/2016) 100 Tab 0 ??? triamterene-hydrochlorothiazide (MAXZIDE-25) 37.5-25 MG tablet Take 1 tablet by mouth daily (every 24 hours). 90 tablet 4 ??? vancomycin (VANCOCIN) 250 mg/5 ml oral solution 125 mg 4 times daily for 2 wks, then 2 x daily for 1 wk, then once daily for 1 wk, then 1 every other day for 1 wk, then 1 every 3rd day for 2 wks, then stop. 08/22/2016: Taking 125 ml daily 250 mL 0 ??? norethindrone-eth estradiol (AKA NORINYL, ORTHO NOVUM) 1-35 MG-MCG tablet Take 1 tablet by mouthdaily TAKE ACTIVE PILLS DAILY THEN DISCARD INACTIVE PILLS AND IMMEDIATELY START NEXT PACK. TAKING CONTINUOUSLY 28 tablet 0 No facility-administered medications prior to visit. Inflammatory Markers: Lab Results Component Value Date/Time CRP 0.6* 08/14/2016 1641 CRP 3.8* 07/30/2016 0737 CRP 13.1* 07/29/2016 0728 CRP 13.1* 07/28/2016 1553 CRP 1.1* 09/01/2015 1352 CRP 1.4* 02/28/2008 1725 No results found for: CALPR Lab Results Component Value Date/Time SEDIMENTATION RATE 19 04/02/2015 1339 SEDIMENTATION RATE 14 02/28/2008 1725 SEDIMENTATION RATE 3 09/27/2001 1326 Last Flexible sigmoidoscopy: - [...] Value Date TPRBR 24.2 07/26/2016 O: BP 143/85 mmHg Pulse 98 Resp 18 Ht 5' 6 (1.676 m) Wt 191 lb 11.2 oz (86.955 kg) BMI 30.96kg/m2 GEN: Well appearing female, NAD CV: RRR, normal S1, S2, no m/r/g ABD: soft, NT, ND, no masses or organomegaly appreciated EXT: No cyanosis, clubbing, or edema LABS: Lab Results Component Value Date/Time WBC 13.5* 07/17/2016 0938 WHITE BLOOD CELL COUNT 14.5* 07/30/2016 0737 RBC 5.08 07/17/2016 0938 RED BLOOD CELL COUNT 3.95 07/30/2016 0737 HEMOGLOBIN 11.8 07/30/2016 0737 HEMOGLOBIN 15.7 07/17/2016 0938 HCT 43.7 07/17/2016 0938 HEMATOCRIT 35.8 07/30/2016 0737 PLATELETS 439 07/17/2016 0938 PLATELET COUNT 592* 07/30/2016 0737 Lab Results Component Value Date/Time ALK PHOS 174* 07/19/2016 1221 BILIRUBIN TOTAL 0.4 07/19/2016 1221 BILIRUBIN, DIRECT 0.2 07/19/2016 1221 PROTEIN TOTAL, SERUM 7.2 07/19/2016 1221 ALBUMIN 2.9* 07/19/2016 1221 ASPARTATE AMINOTRANSFERASE 54* 07/19/2016 1221 ALANINE AMINOTRANSFERASE 62* 07/19/2016 1221 Lab Results Component Value Date/Time CREATININE 0.61 07/17/2016 0938 CREATININE SERUM 0.60 08/14/2016 1641 Lab Results Component Value Date/Time VITAMIN B12 905 04/02/2015 1339 Lab Results Component Value Date HBSAG Nonreactive 07/26/2016 HBAB Reactive 07/26/2016 HBAB >1000 07/26/2016 HEPCAB Non-React 03/24/2015 ASSESSMENT: 1. Ulcerative colitis 2. Recurrent clostridium difficile infection 3. Likely superimposed irritable bowel syndrome (IBS) Originally diagnosed with mild IBD and ulcerative proctitis, which was previously management with asneeded Canasa suppositories. Recently had cholecystectomy associated with antibiotics and demonstrated positive Cdiff. Her endoscopic appearance suggested UC. Most likely explanation for her most recent flare is that she had ulcerative colitis exacerbated by C difficile as it took addition of vancomycin after 6 days of prednisone therapy to begin to see any improvement.?? Many people when the C diff is effectively treated will remit to their pre-existing severity of inflammatory bowel disease.?? If that were to be the case, she should be able to be managed effectively with mesalamine compounds (Lialda and as needed Canasa). Certainly, she is feeling much improved since her hospitalization. She haschronic IBS, and it remains unclear how much of her mild symptoms (post prandial loose stools) are secondary to IBS vs. Active ulcerative colitis. Cdiff infection can advance the severity of underlyingIBD. Recommended that we obtain objective measures of inflammation to help determine how much of her symptoms are secondary to IBS vs IBD. Recommend fecal calprotectin, CRP, Sed rate, CBC. If these results are normal, would favor irritable bowel symptomology. We will try low FODMAPs diet. She has previously been on amitriptyline for headaches, but if negative fecal calprotectin perhaps restarting amitriptyline at low dose may help some of her IBS symptoms. Alternatively, if her evaluation suggests activeinflammation, I would then suggest we consider addition of advance therapeutics which may include Humira or Remicade. She was comfortable with this plan of care and verbalizes understanding. PLAN: 1. Continue Lialda 4.8g daily 2. CBC, CRP, ESR today 3. Fecal calprotectin 4. Trial of low FODMAPs diet. 5. Consider restarting amitriptyline nightly pending lab and stool study results 6. If evidence for active inflammation, consider step up to biologics. If testing is normal/unremarkable, consider treatment of likely concomitant IBS 5. Follow up in 3 months, but sooner if needed pending test results Treatment plan and follow up discussed with the patient and documented in the AVS. Total time spent with patient was 22 minutes, of which 15 minutes were spent consulting patient on condition, treatment, and plan of care. documented in this encounter Plan of Treatment Upcoming Encounters Date Type Specialty Care Team Description 05/05/2022 Appointment Chemo Therapy/Infusion Services 09/15/2022 Telemedicine Gastroenterology Eusebio Haines MD [address] [place], [place] [address] (Wo rk) documented as of this encounter Results TSH with Free T4 (if TSH Abnormal) (10/12/2016 4:26 PM CDT) athologist Signature Thyroid 1.32 0.30 - PN SOFT Stimulating 4.50 Hormone uIU/mL Specimen Anatomical Collection Method Collection Time Receive d Time (Source) Location / / Volume Laterality 10/12/2016 4:26 PM 7 9:19 CDT PM CDT Narrative PN SOFT - 10/12/2016 10:04 PM CDT Performed at [facility] [address] [place] [address] CLIA number [id number] Faye Felton APRN, CNP LAB_1 Performing Organization Address [facility] Phon e Number PN SOFT [address] [place] [address] Sedimentation Rate (10/12/2016 4:26 PM CDT) [facility] Signature Sedimentation Rate 18 0 - 20 PN SOFT mm/hr Specimen Anatomical Collection Method Collection Time Receive d Time (Source) Location / / Volume Laterality 10/12/2016 4:26 PM 7 4:26 CDT PM CDT Narrative PN SOFT - 10/12/2016 5:04 PM CDT Performed at [facility] [place] [address] [place] [address] CLIA number [id number] Faye Felton APRN, CNP LAB_1 Performing Organization Address [facility] Phon e Number PN SOFT [address] [place] [address] (ABNORMAL) C Reactive Protein (10/12/2016 4:26 PM CDT) athologist Signature CRP 1.6 (H) 0.0 - 0.5 PN SOFT mg/dL Specimen Anatomical Collection Method Collection Time Receive d Time (Source) Location / / Volume Laterality 10/12/2016 4:26 PM 7 4:26 CDT PM CDT Narrative PN SOFT - 10/12/2016 4:47 PM CDT Performed at [facility], [address] [place] [address] CLIA number [id number] Faye Felton APRN, CNP LAB_1 Performing Organization Address [facility] Phon e Number PN SOFT [address] [place] [address] CBC - Complete Blood Count No Diff [...] - 10/12/2016 4:30 PM CDT Performed at [facility], [address] [place] [address] CLIA number [id number] Faye Felton APRN, CNP LAB_1 Performing Organization Address City/State/ZIP Code Phon e Number PN SOFT [address] [place] [address] [phone] documented in this encounter Visit Diagnoses Diagnosis Ulcerative (chronic) proctitis, without complications ([facility]) - Primary Enterocolitis due to Clostridium diffici le Intestinal infection due to clostridium difficile Irritable bowel syndrome, unspecified ty pe Ulcerative (chronic) proctitis, without complications ([facility]) documented in this encounter Care Teams Fender Finisher Relationship Specialty Start Date End Date Sheeba Castillo APRN, AIR CARGO GROUND CREW SUPERVISOR PCP - General Nurse Practitioner 07/20/[address] [place] [address] documented as of this encounter
--- OUTSIDE RECORDS SUMMARY | 2022-03-20 16:13 | XMS_ITS | Encounter Summary ---
:1975 Author Organization [email or web address] Address [address], [place] [address] Care Team Providers Name Role Phone Sheeba Castillo APRN, CNP Primary Care Provider [phone] Reason for Visit Reason Onset Date Comments APPOINTMENT REQUEST 07/20/2016 Encounter Details Date Type Department Care Team Description 07/20/2016 Telephone Specialty [facility] [address] Eileen Bernabe, APPOINTMENT REQUEST Gastroenterology [facility] 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 Had cholecystectomy, surgeon paged GI with info that a fair amount of edema was seen in area of hepatic flexure. At that time, day of/after surgery, she did not have symptoms, although she had had sx several days prior to surgery. Appears to support that her current sx are due to flare, with negative stools. OMER COMPLAINT SERVICE SUPERVISOR Charles Duran RN - 07/20/2016 4:29 PM CST Patient notified. OMER COMPLAINT SERVICE SUPERVISOR Eduardo Vasquez MD - 07/20/2016 3:52 PM CST Zofran Rx written OMER COMPLAINT SERVICE SUPERVISOR Sanjana Sumner RN - 07/20/2016 3:31 PM CST Reviewed recommendations with pt. Pt states last time she used Prednisone, she was prescribed Zofranalso. Please sent in Rx. Pt will call on Sunday with update, at that time will need to schedule follow up appointment. Nurses: Pt is now working at [employer] and gets done at 3 pm so would like to switch care to [facility]IE [facility] Gi. OMER COMPLAINT SERVICE SUPERVISOR Eduardo Vasquez MD - 07/20/2016 3:13 PM CST Looks like flare of colitis. Please ask her to start 40mg prednisone/day and arrange appt for OPTICAL ELEMENT COATER forearly next week. Rx. sent Sanjana Hernandez RN - 07/20/2016 3:01 PM CST Preliminary stool culture negative. OMER COMPLAINT SERVICE SUPERVISOR Angel Hernandez RN - 07/20/2016 9:51 AM CST Pt called gave message below, pt sated understanding. Pt states that her condition is the same, having diarrhea every 30 mins, nausea continues, as well as pain below the navel rated 5-6/10 that comes in waves. Pt states that despite this she is stable and doing ok. She states she has a follow up withher primary care on 07/21. Pt states she is ok to wait until stool culture comes back. Pt's pharmacy ([facility] in [facility] is correct for any new Rx. OMER COMPLAINT SERVICE SUPERVISOR Sanjana Sumner RN - 07/20/2016 9:33 AM CST Voicemail left by pt: Pt states she was told to follow up with GI with regarding to tests still pending. Did seen that C.Diff was negative but stool culture still pending. ER note states pt should follow up within 48 hours, pt was in ER on 07/19/16 Pt does have history of ulcerative colitis and C. Diff colitis, status post cholecystectomy on 07/12 was seen in ER for evaluation of abdominal pain. Per transciption GI oncall recommended holding off on antibiotics and steroids until we get the stool culture back to ensure that we are not treating more of an infectious cause of this.?? OMER COMPLAINT SERVICE SUPERVISOR documented in this encounter Plan of Treatment Upcoming Encounters Date Type Specialty Care Team Description 05/05/2022 Appointment Chemo Therapy/Infusion Services 09/15/2022 Telemedicine Gastroenterology Eusebio Haines MD [address] [place], [place] [address] (Wo rk) documented as of this encounter Visit Diagnoses Not on filedocumented in this encounter Care Teams Fine Grade Bulldozer Operator Relationship Specialty Start Date End Date Sheeba Castillo, RAG CUTTING MACHINE TENDER, [place]GAL PCP - General Nurse Practitioner 07/20/16 [address] MAGDALENA Dinh [id number] documented as of this encounter
--- OUTSIDE RECORDS SUMMARY | 2022-03-20 16:13 | XMS_ITS | Encounter Summary ---
:1975 Author Organization [employer] Address [address] [address] Care Team Providers Name Role Phone Sheeba Castillo APRN, SIERRA Primary Care Provider [phone] Encounter Details Date Type Department Care Team Description 07/22/2016 Correspondence [facility] Fernanda Lancaster R ETURN TO [facility] PA-C [id number] [facility] [address] [place] [id number] [phone] Social History Tobacco Use Types Packs/Day Years [...] at Date Recorded Female 05/09/2021 7:19 PM SPECIAL EDUCATION PARAEDUCATOR documented as of this encounter Plan of Treatment Upcoming Encounters Date Type Specialty Care Team Description 05/05/2022 Appointment Chemo Therapy/Infusion Services 09/15/2022 Telemedicine Gastroenterology Eusebio Haines MD [address] [place] [address] (Wo rk) documented as of this encounter Visit Diagnoses Not on filedocumented in this encounter Care Teams Bobbin Coil Winder Relationship Specialty Start Date End Date Sheeba Castillo, ELEVATOR CONSTRUCTOR, CONTRACT ADMINISTRATIVE ASSISTANT PCP - General Nurse Practitioner 07/20/16 [address] [place]h [address] documented as of this encounter
--- OUTSIDE RECORDS SUMMARY | 2022-03-20 16:13 | XMS_ITS | Encounter Summary ---
:1975 Author Organization [facility] Address [address] [place] [address] Care Team Providers Name Role Phone Sheeba Castillo APRN, CNP Primary Care Provider [phone] Reason for Referral (Routine) - Closed Specialty Diagnoses / Procedures Referred By Contact Refer red To Contact Procedures Suzan Hernandez, Endoscopy, sigmoid RUDY, [place] [address] [place], [place] [address] Referral ID Status Reason Start Date Expiration Date Visits Requ ested Visits Authorized [id number] Closed 07/28/2016 10/27/2017 1 1 rocedure/Equipment (Routine) - Incomplete Specialty Diagnoses / Procedures Referred By Contact Refer red To Contact Procedures Suzan Hernandez, XR Abd Flat And Upright SIERRA GRANT [address] [place], [place] [address] Referral ID Status Reason Start Date Expiration Date Visits V isits Requested Authorized [id number] Incomplete 07/28/2016 10/27/2017 1 1 rocedure/Equipment (Routine) - Incomplete Specialty Diagnoses / Procedures Referred By Contact Refer red To Contact Procedures Suzan Hernandez, XR Portable Abd Flat SIERRA GARNT [address] [place], [place] [address] Referral ID Status Reason Start Date Expiration Date Visits V isits Requested Authorized [id number] Incomplete 07/26/2016 10/25/2017 1 1 rocedure/Equipment (Routine) - Incomplete Specialty Diagnoses / Procedures Referred By Contact Refer red To Contact Procedures Milton Chew MD CT Abd Pelvis W IV Cont [address] [place], [place] [address] Referral ID Status Reason Start Date Expiration Date Visits V isits Requested Authorized [id number] Incomplete 07/25/2016 10/24/2017 1 1 TIVE SERVICES PRODUCER Reason for Visit Reason Comments Abdominal Pain Auth/Cert Specialty Diagnoses / Procedures Referred By Contact Refer red To Contact Diagnoses Hematochezia Lower abdominal pain C. difficile colitis Ulcerative colitis with complication, unspecified location (HRC) Ulcerative colitis with complication, unspecified location (HRC) Hematochezia Lower abdominal pain C. difficile colitis Ulcerative colitis with complication, unspecified location (HRC) Hematochezia Lower abdominal pain C. difficile colitis Referral ID Status Reason Start Date Expiration Date Visits Requ ested Visits Authorized [id number] 1 1 Encounter Details Date Type Department Care Team Description 07/25/2016 [facility] Milton Chew MD [address] [place], [place] [phone] Essential hypertension (Primary Dx); - Encounter 5W-General Asia Foreman MD [address] [place], [place] [phone] Ulcerative colitis with complication, un specified location (HRC); 07/30/2016 Medicine Robin De La Cruz MD [address] [place] [address] Hematochezia; [address] Lower abdomin al pain; [address] C. difficile colitis; [place], [place] Ulcerative rectosigmoiditis with rectal bleeding ([facility] [place]) [id number] Social History Tobacco Use Types Packs/Day Years [...] at Date Recorded Female 05/09/2021 7:19 PM CREATIVE SERVICES PRODUCER documented as of this encounter Last Filed Vital Signs Vital Sign Reading Time Taken Comments Blood Pressure 126/76 07/30/2016 7:48 AM CREATIVE SERVICES PRODUCER Pulse 100 07/30/2016 7:48 AM CREATIVE SERVICES PRODUCER Temperature 36.6 ??C (97.9 ??F) 07/30/2016 7:48 AM CREATIVE SERVICES PRODUCER Respiratory Rate 16 07/30/2016 7:48 AM CREATIVE SERVICES PRODUCER Oxygen Saturation 94% 07/30/2016 7:48 AM CREATIVE SERVICES PRODUCER Inhaled Oxygen Concentration - - Weight 89.9 kg (198 lb 3.2 oz) 07/26/2016 10:00 PM CREATIVE SERVICES PRODUCER Height - - Body Mass Index 31.75 07/17/2016 9:10 AM CREATIVE SERVICES PRODUCER documented in this encounter Discharge Summaries Robin De La Cruz MD - 07/30/2016 2:47 PM CST NAME: IDANIA MORAN MR#: [id number] CSN: [id number] AUTHENTICATING CLINICIAN: Robin De La Cruz MD CONFIRM #: [id number] LOC: 1 HOSPITAL DISCHARGE SUMMARY DATE OF ADMISSION: 07/25/2016 DATE OF DISCHARGE: 07/30/2016 STROBOSCOPE OPERATOR: Sheeba Castillo, nurse practitioner, [facility]. ADMISSION DIAGNOSES: 1.Ulcerative colitis. 2.Clostridium difficile colitis. 3.Hypertension. DISCHARGE DIAGNOSES: 1.Ulcerative colitis flare. 2.Clostridium difficile colitis. 3.Hypertension. PROCEDURES: 1.CT abdomen and pelvis with IV contrast: Colitis in distribution atypical for ischemia, slightly increased compared to CT of July 19, 6 days earlier. 2.Flexible sigmoidoscopy: Rectal, rectosigmoid, and sigmoid mucosa moderately congested, erythematous, eroded, and friable. Biopsies pending. CONSULTATIONS: Gastroenterology. REASON FOR ADMISSION: Mrs. Moran is a 41-year-old woman with ulcerative colitis, who underwent a laparoscopic cholecystectomy July 12, 2 weeks prior to admission, who presented to the emergency room for worsening abdominal pain and hematochezia and was found to have a positive C difficile stool. ADMISSION PHYSICAL: Afebrile, heart rate 117 with otherwise normal vital signs. Oropharynx was moist. There was lower abdominal tenderness somewhat diffusely, but without guarding or rebound, and the abdomen was soft. LABORATORY DATA: White count was elevated at 16.7 with mildly elevated platelets of 611 and normal hemoglobin. C difficile was positive as noted above. Other labs were unremarkable. HOSPITAL COURSE: 1.Ulcerative colitis flare complicated by Clostridium difficile. Patient with history of Clostridiumdifficile in the past, in 2011. Given normal saline and started on oral vancomycin and IV metronidazole in the emergency room. Admitted on clear liquid diet. GI consulted. Metronidazole was discontinued July 28 due to nausea. She underwent a sigmoidoscopy that same day, which showed the diffuse distal colitis as noted above. Biopsies were taken and are still pending at the time of this dictation. Sigmoidoscopy was undertaken as she did not seem to be responding to the Clostridium difficile treatment. Because of the appearance on sigmoidoscopy, it was felt that the ulcerative colitis was probabl y the dominant cause of symptoms. CRP was quite elevated at 13.8. She was started on IV steroids. She had a significant quick improvement over the 24 hours after starting IV steroids. She continued to improve. Stools were no longer watery, cramps resolved. By the day of discharge, she was not having br ight red blood, but only some maroon stools and some formed elements. CRP dropped to 3.8. She did have testing performed for potential future immunologic biologic therapy. Hepatitis B surface antibody was positive with negative hepatitis B surface antigen, showing immunity. T-SPOT was negative. TPMT enzyme level still pending. Plan will be for a slow steroid and slow vancomycin taper (as this is her 2nd episode of Clostridium difficile). She will follow up in GI in 2 weeks. 2.Hypertension. On triamterene/hydrochlorothiazide was held due to diarrhea and dehydration. Blood pressures remained stable despite steroids. She will resume her diuretic on discharge. DISPOSITION: Discharge is now to home in good condition. DIET: Low fiber, low residue. ACTIVITY: As tolerated. FOLLOWUP: 1.Nurse, Sheeba Castillo, [facility], in 7-10 days. 2.[facility] in 2 weeks, to be arranged by Gastroenterology. MEDICATIONS: 1.Acetaminophen 650 mg every 6 hours as needed for pain or fever. 2.Vancomycin taper: 125 mg q.i.d. x2 weeks, then b.i.d. x1 week, then daily for 1 week, then every other day for 1 week, then every 3rd day for 2 weeks, then stopped. 3.Prednisone 40 mg daily for 2 weeks, then 30 mg daily for 1 week, then 20 mg daily for 1 week, thendecrease by 2.5 mg each week until off). She has some 20 mg tablets at home and was given prescriptions for 10 and 2.5 mg tablets. 4.Mesalamine 1.2 g and icteric coated tablet 4 tablets daily with breakfast. 5.Amitriptyline 25-50 mg at bedtime. 6.Calcium carbonate 1000 mg daily. 7.Dicyclomine 20 mg q.i.d. p.r.n. irritable bowel. 8.Multivitamin daily. 9.Norethindrone/ethinyl estradiol 1/35 oral contraceptive daily. 10.Ondansetron 4 mg disintegrating tablet every 8 hours as needed for nausea or vomiting. 11.Triamterene/hydrochlorothiazide 37.5/25 daily. SJD:MEDQ C: CONFIRM #: [id number] TIVE SERVICES PRODUCER documented in this encounter Medications at Time of Discharge Medication Sig Dispensed Refills Start Date End Date Calcium Carbonate Take by mouth. 0 02/15/2012 Antacid 1000 MG Reported on 08/14/2016 Multiple Vitamin Take 1 tablet by 0 11/14/2011 (MULTI-VITAMIN OR) mouth daily (every 24 hours). acetaminophen (TYLENOL) Take 2 Tabs by mouth 100 Tab 11 01/11/2017 325 MG tablet every 6 hours as needed for Pain or Fever. amitriptyline (ELAVIL) TAKE 1-2 TABLETS BY 180 tablet 3 11/2512/17/2017 25 MG tablet MOUTH NIGHTLY. dicyclomine (BENTYL) 20 Take 1 Tab by mouth 360 Tab 3 01/28/2018 MG tablet 4 times daily as needed (Take 1 tablet by mouth 4 times daily as needed.). mesalamine (LIALDA) 1.2 Take 4 Tabs by mouth 90 Tab 0 08/17/2016 G enteric coated daily with tabletIndications: breakfast. Ulcerative Colitis Indications: Ulcerated Colon norethindrone-eth Take 1 tablet by 112 tablet 4 11/24/2015 0 11/21/2016 estradiol mouth daily (every (NORINYL,ORTHONOVUM) 24 hours). PATIENT 1-35 MG-MCG tablet TAKES CONTINOUSLY ondansetron (ZOFRAN-ODT) Take 1 Tab by mouth 45 Tab 1 12/17/2017 4 MG disintegrating every 8 hours as tablet needed. predniSONE (DELTASONE) 40 mg daily x 2 100 Tab 0 07/30/19 17 10/12/2016 10 MG tabletIndications: weeks, then 30 Ulcerative colitis mg/day x 1 wk, then 20 mg/d x 1 wk, then decrease by 2.5 mg each wk until off. (Combined w 2.5 mg tabs as needed) Indications: Ulcerative colitis predniSONE (DELTASONE) With 10 mg tabs as 100 Tab 0 07/3010/12/2016 2.5 MG needed when taper tabletIndications: gets to 17.5 mg/d Ulcerative colitis and lower. Indications: Ulcerative colitis triamterene-hydrochlorot Take 1 tablet by 90 tablet 4 02/0404/25/2017 hiazide (MAXZIDE-25) mouth daily (every 37.5-25 MG 24 hours). tabletIndications: Essential hypertension (HRC) vancomycin (VANCOCIN) 125 mg 4 times daily 250 mL 0 10/201610/12/2016 250 mg/5 ml oral for 2 wks, then 2 x solution daily for 1 wk, then once daily for 1 wk, then 1 every other day for 1 wk, then 1 every 3rd day for 2 wks, then stop. documented as of this encounter Progress Notes Pearl Nuno RN - 07/30/2016 2:47 PM CST O: Discharge D: A&O, independent, going home today, friend in room. A: Rx's filled at in pharmacy. Paper work and patient teaching completed. R: Left [address] to go home with friend. 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 75-100% of anti-diarrhea stage 2 diet per flow sheets Patient Interview/Diet History: Pt with new ulcerative colitis. Pt is agreeable to dietary changes. Reports feeling better and anxious to discharge today. Pt is hungry and requests lunch tray. Discharge Diet: Low fiber/residue Present for Education: Patient Diagnosis Nutrition Diagnosis: (NB-1.1) Food and nutrition related knowledge deficit related to limited/lack of prior exposure to specific diet recommendations as evidenced by change in existing diagnosis or condition and/or patient verbalizing interest in information. Intervention Diet Education: Discussed: rational/risk factors, timeline for diet , foods allowed/avoided, adequate hydration, chewing foods well, slowly adding fiber back, long-term diet management with dx Provide packet of printed information. [employer]razzo Worker contact information provided Comprehension: Pt verbalized understanding of diet Marie Suarez MS, RD LD Robin Cote MD - 07/30/2016 12:52 PM CST DAILY PROGRESS NOTE 07/30/2016. 12:52 PM Admit Date: 07/25/2016 Reason for admission: 41-year-old female, ulcerative colitis, recent lap chol'y (07/12/2016), to ED for worsening abdominalpain and hematochezia, diagnosed with?? Clostridium difficile colitis. Afeb, HR 117, o/w nl VS. OP moist, lower abd tenderness though soft. CT colitis in distrib atypical for ischemia, sl increase cf 07/19. WBC 16.7, plt 611, Hgb nl. C.diff +. Pertinent medical history: Irritable bowel syndrome Malignant melanoma of trunk Chronic headaches Hypertension Hx concussion (2007) Overweight Hx tobacco Hx C. Diff (2011) Hospital course: Saline, PO vanco, IV metronidazole started in ED. Admitted on CL diet. GI consulted. Metronidazole DC'd 2/3 due to nausea. Flex sig 2/3 showed diffuse congested friable rectal/rectosigmoid/sigmoid colitis. Bx's taken. IV steroids begun. SUBJECTIVE: Maroon stool x 3 yesterday, none overnight; 4 small maroon stools today -thicker and some solid elements, no BRB. Minimal cramping, I'm getting a little anxious about going home. No nausea. No SOB, CP. Ambulating in halls. PRN's used last 24 hours: -temazepam 15 mg x 1 OBJECTIVE: Vital Signs Temp: 36.6 ??C (97.9 ??F), Pulse: 100, Resp: 16, SpO2: 94 %, BP: 126/76 mmHg, O2 Device:room air Temp (24hrs), Min:36.6 ??C (97.8 ??F), Max:36.7 ??C (98 ??F) Systolic (24hrs), Av mmHg, Min:113 mmHg, Max:128 mmHg Diastolic (24hrs), Av mmHg, Min:63 mmHg, Max:76 mmHg HR (24h): 90-100 RR (24h): 16 SaO2 (24h): 93-95% RA Wt: 89.7 kg (admit) I/O last 3 completed shifts: In: 800 [Oral:800] Out: 1070 [Urine:800; Stool:270] GEN: Delightful, well appearing, up in bed in street clothes. PSYCH: Alert. Memory appears intact. Affect bright. SKIN: Warm and dry. Normal turgor for age. No jaundice, pallor, ecchymoses. HEENT: OP moist. CHEST: CTA. Resp unlabored. COR: RRR. No murmur. ABD: Normal bowel sounds. Soft, non tender. EXT: No edema. Labs: Recent Labs 07/28/16 0727 07/29/16 0728 07/30/16 0737 WBC 15.2* 15.2* 14.5* HGB 12.1 13.4 11.8 PLTS 580* 609* 592* Recent Labs 07/28/16 2115 07/29/16 0728 07/30/16 0737 SODIUM -- 136 -- K 3.8 4.0 3.7 CHLORIDE -- 104 -- BICARB -- 20* -- BUN -- <10 -- CREATININE -- 0.57 -- Recent Labs 07/29/16 0728 MG 1.6 Recent Labs 07/29/16 0728 GLUCOSE 122* BBGT: 140-225 CRP 07/28 13.1 07/29 13.1 07/30 3.8 Microbiology: C.diff (07/25) POS MRSA Neg HBsAb POS HBsAg neg Tspot Neg Antimicrobials: IV metronidazole 07/25-07/28 PO vanco 07/25-ongoing ASSESSMENT/PLAN: ??41-year-old female with ulcerative colitis and recent laparoscopy cholecystectomy. ?? Admitted with worsening abdominal pain and hematochezia, diagnosed with?? Clostridium difficile colitis. Failed to improve w C diff Rx, so flex sig done. Suggested IBD primary issue. Steroids begun w quick improvement. ? Ulcerative colitis and Clostridium difficile colitis.? Distal colitis w past hx C.diff, recent clive-op abx, admit C.diff Ag positive, in setting of known U.C. Flex sig (and response to steroids) suggest IBD dominant Great response to steroids clinically, and CRP significantly down today. Still blood in stools. Tspot negative. -continue?? oral vancomycin. w slow taper, as per GI. -change to oral steroids w taper, as per GI (will not arrange home insulin as never in past, chg to orals now, and BG's here not dangerous) -continue low fiber, low res diet on DC -TPMT pending for possible biologics in future -follow for path results -f/u GI 2 weeks GI following and input appreciated.?? Nausea, vomiting. Resolved, due to DCing flagyl and/or IV steroids both begun 07/28. Hypertension, controlled.? TMT/HCTZ held due to diarrhea, dehydration. BP's remain stable, despite steroids. -resume diuretic on DC -prn enalapril?? Hypokalemia. Due to diarrhea. Improved. DVT prophylaxis. Chemoprophylaxis contraindicated due to GIB. -ambulatory Code status. Addressed on admission. -full code Disposition: Stable for DC to home. GI in agreement. SEE DICTATED DC SUMMARY TT: 50 min. CC: 40 min. Robin De La Cruz MD 1:45 PM 07/30/2016 Department of Internal Medicine Pager [phone] #[phone] TIVE SERVICES PRODUCER Faye Hinojosa APRN, IT ARCHITECTURE CONSULTANT - 07/30/2016 8:20 AM CST GASTROENTEROLOGY DAILY PROGRESS NOTE Admit Date: 07/25/2016 SUBJECTIVE: Sitting up in bed, feeling much better today. Stool frequency less, a little thicker. Still with blood per rectum. Cramping much improved, no fentanyl needed in the last 24 hours. Feels hungry. OBJECTIVE: Vitals: Temp (24hrs), Min:97.8 ??F (36.6 ??C), Max:98 ??F (36.7 ??C) Vital Signs Temp: 97.9 ??F (36.6 ??C), Pulse: 100, Resp: 16, SpO2: 94 %, BP: 126/76 mmHg, O2 Device:room air I/O last 3 completed shifts: In: 800 [Oral:800] Out: 1070 [Urine:800; Stool:270] General appearance: alert, cooperative, no distress, appears stated age, Lungs: clear to auscultation bilaterally and Abdomen: rounded, soft, mild distention without tympany or peritoneal signs. Imaging: Xr Portable Abd Flat 07/26/2016?? COMPARISON:?? CT abdomen and pelvis 07/25/2016, radiograph 02/15/2012 FINDINGS:?? One view was obtained. Nonobstructive bowel gas pattern. There is fold thickening in the descending colon consistent with colitis. The cecum continues to measure approximately 6 cm in diameter. No pneumatosis,portal venous gas, or gross free peritoneal air. Mild convex left curvature of the lumbar spine with6 lumbar type vertebrae. Ct Abd Pelvis W Iv Cont Only 07/25/2016?? COMPARISON:?? 07/19/2016. TECHNIQUE:?? Images were obtained through the abdomen and pelvis following the administration of?? 75 mL IOPAMIDOL 61 % IV SOLN contrast. FINDINGS: The visualized lung bases are clear. The visualized distal esophagus is unremarkable. The patient is status post cholecystectomy. The liver, spleen, pancreas, adrenal glands and kidneys are normal. Diffuse wall thickening involving nearly the entire colon with some sparing of the cecum, sigmoid colon and rectum is again noted. There is slightly greater involvement of the distal descending and sigmoid colon than on the prior study. Mild pericolonic inflammatory stranding is again noted. No pneumatosis or free air. No hernia or bowel obstruction. There is trace free fluid in the pelvis. No significant adenopathy. Nosuspicious osseous lesions are identified on review of bone windows. 07/25/2016?? IMPRESSION:?? 1. Findings compatible with colitis may be secondary to the patient's history of ulcerative colitis although infectious colitis including pseudomembranous colitis could have asimilar appearance. The distribution would be atypical for ischemic colitis. There is slightly greater involvement of the distal descending and sigmoid colon than on the prior study. Ct Abd Pelvis W Iv Cont Only 07/19/2016?? COMPARISON:?? None. TECHNIQUE:?? Images were obtained through the abdomen and pelvis following the administration of?? 75 mL IOPAMIDOL 61 % IV SOLN contrast. FINDINGS: Subcentimeter hypodense lesion in the inferior spleen on slice 27 is too small to further characterize although the majority of splenic lesions are benign. The solid abdominal organs are otherwise unremarkable. There is diffuse wall thickening of the colon from the level of the mid ascending colon through the distal descending colon. There is mild pericolonic inflammation and vascular engorgement involving the section of the colon as well. There is no pneumatosis, free air, or portal venous gas. Normal appendix. There are several upper normal size lymph nodes in the mesentery of the mid and lower abdomen which are nonspecific although most likely reactive. No free fluid or fluid collections. Uterus and ovaries are grossly unremarkable.?? No acute findings otherwise. 07/19/2016?? IMPRESSION:?? 1. Moderate wall thickening and pericolonic inflammation and vascular engorgement involving the colon from the level of the mid ascending colon to the distal descending colon.Findings compatible with nonspecific colitis. No free air, pneumatosis, or portal venous gas and no free fluid or fluid collections. 2. No acute findings otherwise. Us Abd Ruq Organs 07/05/2016?? COMPARISON:?? None. FINDINGS:?? Pancreas: Appears unremarkable. Liver: Contour appears unremarkable. Parenchyma appears unremarkable. Gallbladder: Cholelithiasis without pericholecystic fluid. Sonographic Goldman's Sign: No. CBD: .70 cm. Right Kidney: Measures 9.9 x 4.7 x 4.9 cm. Appears unr emarkable. Ascites: None. 07/05/2016?? IMPRESSION: Cholelithiasis without sonographic findings of cholecystitis. ?? Labs: CBC last 24 hrs: Lab Results Component Value Date/Time WHITE BLOOD CELL COUNT 14.5* 07/30/2016 0737 RED BLOOD CELL COUNT 3.95 07/30/2016 0737 HEMOGLOBIN 11.8 07/30/2016 0737 HEMATOCRIT 35.8 07/30/2016 0737 MEAN CORPUSCULAR VOLUME 90.6 07/30/2016 0737 RDW 13.2 07/30/2016 0737 PLATELET COUNT 592* 07/30/2016 0737 BMP last 24 hrs: Lab Results Component Value Date/Time POTASSIUM 3.7 07/30/2016 0737 Lab Results Component Value Date CRP 3.8* 07/30/2016 ASSESSMENT/PLAN: Active problems: Patient Active Hospital Problem List: Left-sided Ulcerative proctitis ?? Assessment: Previously has taken Canasa, Lialda, and recent steroid burst.?? Concomitant Cdiff infection (see below) makes assessment of her ongoing symptoms challenging.?? Despite treatment for Cdiff infection, ongoing pain and diarrhea prompted flex sig yesterday per Dr. Mcmanus.?? This noted diffuse area of moderately congested, erythematous, eroded and friable (with contact bleeding) mucosa was found in the rectum, in the recto-sigmoid colon and in the sigmoid colon.?? Biopsies pending.?? Findings suggested IBD dominant factor and IV steroids were started.?? Ongoing improvement today.?? CRPdown from 13 to 3.8. She is feeling better and would like to go home today. That seems reasonable. Initially had planned to start biologics, but given quick turnaround with IV steroids and her previous history of melanoma,may not be necessary at this time. Would send out on a pred taper and back on Lialda 4.8g daily (hadbeen off Lialda since early Summer) and we will discuss her at our IBD conference regarding future immunomodulator/biologic use. I will also arrange GI follow up. ?? Plan: 1.?? Await pending TPMT, Tspot, HBV in case future biologic/immunomodulator is needed 2.?? Follow daily labs including CRP 3.?? Low fiber/low res diet 4.?? Close monitoring of stool outputs please 5.?? Restart Lialda 4.8g daily - ordered 6. Discharge on oral prednisone: 40mg daily for 2 weeks, then 30mg daily for 1 week, then 20mg dailyfor 1 week, then decrease by 2.5mg weekly until done. 7. Follow up in GI clinic in 2 weeks to be arranged C. difficile colitis (07/25/2016) ?? Assessment: No improvement after 4d IV Flagyl and po Vanco ?? Plan: 1.?? Continue?? PO Vanco.?? She will need a prolonged Vanco taper on discharge as this is her second episode.?? Would do 125mg PO QID x 14 days, then BID x 7 days, then daily for 7 days, then every other day for 7 days, then every 3rd day for 14 days.?? Stable for discharge from GI standpoint. Will arrange follow up as outlined above. TIVE SERVICES PRODUCER Robin De La Cruz MD - 07/29/2016 5:37 PM CST (On service. Chart reviewed.) DAILY PROGRESS NOTE 07/29/2016. 5:37 PM Admit Date: 07/25/2016 Reason for admission: 41-year-old female, ulcerative colitis, recent lap chol'y (07/12/2016), to ED for worsening abdominalpain and hematochezia, diagnosed with?? Clostridium difficile colitis. Afeb, HR 117, o/w nl VS. OP moist, ower abd tenderness though soft. CT colitis in distrib atypical for ischemia, sl increase cf 07/19. WBC 16.7, plt 611, Hgb nl. C.diff +. Pertinent medical history: Irritable bowel syndrome Malignant melanoma of trunk Chronic headaches Hypertension Hx concussion (2007) Overweight Hx tobacco Hx C. Diff (2011) Hospital course: Saline, PO vanco, IV metronidazole started in ED. Admitted on CL diet. GI consulted. Metronidazole DC'd 2/3 due to nausea. Flex sig 2/3 showed diffuse congested friable rectal/rectosigmoid/sigmoid colitis. Bx's taken. IV steroids begun. SUBJECTIVE: Feeling much, much better today, since IV steroids. No abd pain. Only one BM, almost pasty rather than watery, though still bloody. No nausea. No SOB, CP. Ambulating in halls. (Wants to avoid enoxaparin.) PRN's used last 24 hours: -compazine 10 mg x 1 -temazepam 15 mg x 1 OBJECTIVE: Vital Signs Temp: 36.6 ??C (97.8 ??F), Pulse: 88, Resp: 18, SpO2: 93 %, BP: 128/67 mmHg, O2 Device: room air Temp (24hrs), Min:36.5 ??C (97.7 ??F), Max:36.9 ??C (98.4 ??F) Systolic (24hrs), Av mmHg, Min:115 mmHg, Max:128 mmHg Diastolic (24hrs), Av mmHg, Min:66 mmHg, Max:72 mmHg HR (24h): 110-->90 RR (24h): 16-20 SaO2 (24h): 93-98% RA Wt: 89.7 kg (admit) I/O last 3 completed shifts: In: 1430 [Oral:400; IV:1030] Out: - GEN: Delightful, well appearing, up in bed. PSYCH: Alert. Memory appears intact. Affect bright. SKIN: Warm and dry. Normal turgor for age. No jaundice, pallor, ecchymoses. HEENT: Facies symmetric. No scleral icterus or exophthalmos. OP moist. CHEST: CTA. Resp unlabored. COR: RRR. No murmur. ABD: Normal bowel sounds. Soft, non tender. EXT: No edema. Labs: Recent Labs 07/27/16 0707/28/1672607/29/16 0728 WBC 14.1* 15.2* 15.2* HGB 12.1 12.1 13.4 PLTS 537* 580* 609* Recent Labs 07/28/16 0727 07/28/16 2115 07/29/16 0728 SODIUM -- -- 136 K 3.4* 3.8 4.0 CHLORIDE -- -- 104 BICARB -- -- 20* BUN -- -- <10 CREATININE -- -- 0.57 Recent Labs 07/27/1670907/29/16 0728 MG 1.9 1.6 Recent Labs 07/29/16 0728 GLUCOSE 122* Microbiology: C.diff (07/25) POS MRSA Neg HBsAb POS HBsAg neg Antimicrobials: IV metronidazole 07/25-07/28 PO vanco 07/25-ongoing ASSESSMENT/PLAN: ??41-year-old female with ulcerative colitis and recent laparoscopy cholecystectomy. ?? Admitted with worsening abdominal pain and hematochezia, diagnosed with?? Clostridium difficile colitis. ? Ulcerative colitis and Clostridium difficile colitis.? Distal colitis w past hx C.diff, recent clive-op abx, admit C.diff Ag positive, in setting of known U.C. Uncertain which is dominant, or even if C.diff is other than colonizer. Hep B immune. Great response to steroids, though still blood in stools and CRP still high. -continue?? oral vancomycin -continue IV steroids begun 2/3 PM -start BGM, SSI while on steroids -continue a-diarrhea diet and IV hydration -Tspot, TPMT pending for anticipated biologics -follow for path results GI following and input appreciated.?? Nausea, vomiting. Resolved, due to DCing flagyl and/or IV steroids both yesterday 07/28. -continue prn phenergan and compazine Hypertension, controlled.? TMT/HCTZ held due to diarrhea, dehydration. BP's remain stable, despite steroids. -continue to hold diuretics -prn enalapril?? Hypokalemia. Due to diarrhea. Improved. -continue KCl protocol -follow DVT prophylaxis. Chemoprophylaxis contraindicated due to GIB. -ambulatory Code status. Addressed on admission. -full code Disposition: TBD. Per pt, GI said possibly tomorrow. TT: 50 min. CC: 35 min. Robin De La Cruz MD 6:30 PM 07/29/2016 Department of Internal Medicine Pager [phone] [employer] Luda Diaz, RN - 07/29/2016 1:58 PM CST O: stooling, abd pain Nausea D: Awake alert ind steady on feet. States no nausea since yesterday And stooling has slowed down andhas more cionsistency to stool apin is toleerable to non A: Tolerating diet Ate chn soup and toast for lunch R: Seems to be resolving issues w prednisone started yesterday [employer] Faye Hinojosa APRN, CNP - 07/29/2016 9:43 AM CST GASTROENTEROLOGY DAILY PROGRESS NOTE Admit Date: 07/25/2016 SUBJECTIVE: Resting in bed, feeling better this morning. Mild ongoing abdominal pain, worse prior to BM. Has had4-5 loose stools since 4AM, but overall is feeling improved. Minimal blood in stool per patient. OBJECTIVE: Vitals: Temp (24hrs), Min:36.5 ??C (97.7 ??F), Max:36.9 ??C (98.4 ??F) Vital Signs Temp: 36.5 ??C (97.7 ??F), Pulse: 98, Resp: 16, SpO2: 94 %, BP: 127/72 mmHg, O2 Device: room air I/O last 3 completed shifts: In: 1030 [IV:1030] Out: - General appearance: alert, cooperative, no distress, appears stated age, Lungs: clear to auscultation bilaterally and Abdomen: rounded, soft, mild distention without tympany or peritoneal signs. Imaging: Xr Portable Abd Flat 07/26/2016?? COMPARISON:?? CT abdomen and pelvis 07/25/2016, radiograph 02/15/2012 FINDINGS:?? One view was obtained. Nonobstructive bowel gas pattern. There is fold thickening in the descending colon consistent with colitis. The cecum continues to measure approximately 6 cm in diameter. No pneumatosis,portal venous gas, or gross free peritoneal air. Mild convex left curvature of the lumbar spine with6 lumbar type vertebrae. Ct Abd Pelvis W Iv Cont Only 07/25/2016?? COMPARISON:?? 07/19/2016. TECHNIQUE:?? Images were obtained through the abdomen and pelvis following the administration of?? 75 mL IOPAMIDOL 61 % IV SOLN contrast. FINDINGS: The visualized lung bases are clear. The visualized distal esophagus is unremarkable. The patient is status post cholecystectomy. The liver, spleen, pancreas, adrenal glands and kidneys are normal. Diffuse wall thickening involving nearly the entire colon with some sparing of the cecum, sigmoid colon and rectum is again noted. There is slightly greater involvement of the distal descending and sigmoid colon than on the prior study. Mild pericolonic inflammatory stranding is again noted. No pneumatosis or free air. No hernia or bowel obstruction. There is trace free fluid in the pelvis. No significant adenopathy. Nosuspicious osseous lesions are identified on review of bone windows. 07/25/2016?? IMPRESSION:?? 1. Findings compatible with colitis may be secondary to the patient's history of ulcerative colitis although infectious colitis including pseudomembranous colitis could have asimilar appearance. The distribution would be atypical for ischemic colitis. There is slightly greater involvement of the distal descending and sigmoid colon than on the prior study. Ct Abd Pelvis W Iv Cont Only 07/19/2016?? COMPARISON:?? None. TECHNIQUE:?? Images were obtained through the abdomen and pelvis following the administration of?? 75 mL IOPAMIDOL 61 % IV SOLN contrast. FINDINGS: Subcentimeter hypodense lesion in the inferior spleen on slice 27 is too small to further characterize although the majority of splenic lesions are benign. The solid abdominal organs are otherwise unremarkable. There is diffuse wall thickening of the colon from the level of the mid ascending colon through the distal descending colon. There is mild pericolonic inflammation and vascular engorgement involving the section of the colon as well. There is no pneumatosis, free air, or portal venous gas. Normal appendix. There are several upper normal size lymph nodes in the mesentery of the mid and lower abdomen which are nonspecific although most likely reactive. No free fluid or fluid collections. Uterus and ovaries are grossly unremarkable.?? No acute findings otherwise. 07/19/2016?? IMPRESSION:?? 1. Moderate wall thickening and pericolonic inflammation and vascular engorgement involving the colon from the level of the mid ascending colon to the distal descending colon.Findings compatible with nonspecific colitis. No free air, pneumatosis, or portal venous gas and no free fluid or fluid collections. 2. No acute findings otherwise. Us Abd Ruq Organs 07/05/2016?? COMPARISON:?? None. FINDINGS:?? Pancreas: Appears unremarkable. Liver: Contour appears unremarkable. Parenchyma appears unremarkable. Gallbladder: Cholelithiasis without pericholecystic fluid. Sonographic Goldman's Sign: No. CBD: .70 cm. Right Kidney: Measures 9.9 x 4.7 x 4.9 cm. Appears unr emarkable. Ascites: None. 07/05/2016?? IMPRESSION: Cholelithiasis without sonographic findings of cholecystitis. ?? Labs: CBC last 24 hrs: Lab Results Component Value Date/Time WHITE BLOOD CELL COUNT 15.2* 07/29/201628 RED BLOOD CELL COUNT 4.37 07/29/2016 0728 HEMOGLOBIN 13.4 07/29/2016 0728 HEMATOCRIT 39.3 07/29/2016 0728 MEAN CORPUSCULAR VOLUME 89.9 07/29/201628 RDW 13.0 07/29/2016 0728 PLATELET COUNT 609* 07/29/2016 0728 BMP last 24 hrs: Lab Results Component Value Date/Time CREATININE SERUM 0.57 07/29/2016 0728 LAB GLUCOSE 122* 07/29/2016 0728 CO2 20* 07/29/2016 0728 CHLORIDE 104 07/29/2016 0728 POTASSIUM 4.0 07/29/201628 SODIUM 136 07/29/2016 0728 BLOOD UREA NITROGEN <10 07/29/2016 0728 CALCIUM 7.8* 07/29/2016 0728 EST GFR AM >60 07/29/2016 0728 EST GFR NON-AFR AM >60 07/29/2016 0728 Lab Results Component Value Date CRP 13.1* 07/29/2016 TSPOT neg TPMT pending HepBSAg NR HepBSAb reactive ASSESSMENT/PLAN: Active problems: Patient Active Hospital Problem List: Left-sided Ulcerative proctitis ?? Assessment: Previously has taken Canasa, Lialda, and recent steroid burst.?? Concomitant Cdiff infection (see below) makes assessment of her ongoing symptoms challenging. Despite treatment for Cdiffinfection, ongoing pain and diarrhea prompted flex sig yesterday per Dr. Mcmanus. This noted diffuse area of moderately congested, erythematous, eroded and friable (with contact bleeding) mucosa was found in the rectum, in the recto-sigmoid colon and in the sigmoid colon. Biopsies pending. Findings suggested IBD dominant factor and IV steroids were started. Mild improvement today. I don't think she's quite ready for discharge. She will likely need step up therapy to immunomodulator +/- biologic, pre labs pending. Her TB and Hep B tests are negative, therefore could start biologic in house if no improvement with IV steroids. ?? Plan: 1.?? Await pending TPMT, Tspot, HBV in anticipation of future biologic or immunomodulator. 2.?? Follow daily labs including CRP 3.?? Continue anti-diarrhea stage 2 diet for now 4. Close monitoring of stool outputs please 5. If no improvement after 2-3 days with IV steroids, consider instituting biologic treatment (ie Remicade) 6. Continue subq Lovenox for prophylaxis given increased risk of blood clot in IBD patients, if she declines she should be ambulating throughout hallways. C. difficile colitis (07/25/2016) ?? Assessment: No improvement after 4d IV Flagyl and po Vanco ?? Plan: 1.?? Continue?? PO Vanco.?? She will need a prolonged Vanco taper on discharge as this is her second episode.? 2.?? Continue BRAT 2 diet for comfort 3.?? Continue IV Fentanyl for improved pain control Neelima Duque RN - 07/28/2016 3:22 PM CST Patient leaving with hospital transport [employer] Neelima Dunne RN - 07/28/2016 3:07 PM CST Patient in recovery Vital signs stable. Denies pain. Patient returning back to by hospital Transport. uSzan Brownlee APRN, CNP - 07/28/2016 11:54 AM CST GASTROENTEROLOGY DAILY PROGRESS NOTE Admit Date: 07/25/2016 SUBJECTIVE: Had a difficult night-stool frequency has increased to q15-30 minutes, although remains small volumeand at present minimally bloody. Current IV Dilaudid is not especially effective for this and causing her significant nausea and vomiting. She does feel more bloated today as well. No fever, chills or rigors. No dizziness or syncope when up. She is frustrated by her lack of improvement thus far. OBJECTIVE: Vitals: Temp (24hrs), Min:36.7 ??C (98 ??F), Max:36.8 ??C (98.2 ??F) Vital Signs Temp: 36.8 ??C (98.2 ??F), Pulse: (!) 102, Resp: 16, SpO2: 96 %, BP: 123/71 mmHg, O2 Device: room air I/O last 3 completed shifts: In: 906 [Oral:340; IV:566] Out: - General appearance: alert, cooperative, no distress, appears stated age, Lungs: clear to auscultation bilaterally and Abdomen: rounded, soft, mild distention without tympany or peritoneal signs. Imaging (past 12 months) Xr Portable Abd Flat 07/26/2016 COMPARISON: CT abdomen and pelvis 07/25/2016, radiograph 02/15/2012 FINDINGS: One view was obtained. Nonobstructive bowel gas pattern. There is fold thickening in the descending colon consistent with colitis. The cecum continues to measure approximately 6 cm in diameter. No pneumatosis, portal venous gas, or gross free peritoneal air. Mild convex left curvature of the lumbar spine with [address] Abd Pelvis W Iv Cont Only 07/25/2016 COMPARISON: 07/19/2016. TECHNIQUE: Images were obtained through the abdomen and pelvis following the administration of 75 mL IOPAMIDOL 61 % IV SOLN contrast. FINDINGS: The visualized lung bases are clear. The visualized distal esophagus is unremarkable. The patient is status post cholecystectomy. The liver, spleen, pancreas, adrenal glands and kidneys are normal. Diffuse wall thickening involving nearly the entire colon with some sparing of the cecum, sigmoid colon and rectum is again noted. There is slightly greater involvement of the distal descending and sigmoid colon than on the priorstudy. Mild pericolonic inflammatory stranding is again noted. No pneumatosis or free air. No herniaor bowel obstruction. There is trace free fluid in the pelvis. No significant adenopathy. No suspicious osseous lesions are identified on review of bone windows. 07/25/2016 IMPRESSION: 1. Findings compatible with colitis may be secondary to the patient's history of ulcerative colitis although infectious colitis including pseudomembranous colitis could have a similar appearance. The distribution would be atypical for ischemic colitis. There is slightly greater involvement of the distal descending and sigmoid colon than on the prior study. Ct Abd Pelvis W Iv Cont Only 07/19/2016 COMPARISON: None. TECHNIQUE: Images were obtained through the abdomen and pelvis followingthe administration of 75 mL IOPAMIDOL 61 % IV SOLN contrast. FINDINGS: Subcentimeter hypodense lesion in the inferior spleen on slice 27 is too small to further characterize although the majority of splenic lesions are benign. The solid abdominal organs are otherwise unremarkable. There is diffuse wall thickening of the colon from the level of the mid ascending colon through the distal descending colon. There is mild pericolonic inflammation and vascular engorgement involving the section of the colon as well. There is no pneumatosis, free air, or portal venous gas. Normal appendix. There are several upper normal size lymph nodes in the mesentery of the mid and lower abdomen which are nonspecific although most likely reactive. No free fluid or fluid collections. Uterus and ovaries are grossly unremarkable. No acute findings otherwise. 07/19/2016 IMPRESSION: 1. Moderate wall thickening and pericolonic inflammation and vascular engorgement involving the colon from the level of the mid ascending colon to the distal descending colon. Findings compatible with nonspecific colitis. No free air, pneumatosis, or portal venous gas and no freefluid or fluid collections. 2. No acute findings otherwise. Us Abd Ruq Organs 07/05/2016 COMPARISON: None. FINDINGS: Pancreas: Appears unremarkable. Liver: Contour appears unremarkable. Parenchyma appears unremarkable. Gallbladder: Cholelithiasis without pericholecystic fluid. Sonographic Goldman's Sign: No. CBD: .70 cm. Right Kidney: Measures 9.9 x 4.7 x 4.9 cm. Appears unremarkable. Ascites: None. 07/05/2016 IMPRESSION: Cholelithiasis without sonographic findings of cholecystitis. Labs: Recent Labs 07/26/16 0712 07/27/16 0710 07/28/16 0727 WBC 18.8* 14.1* 15.2* HGB 11.8 12.1 12.1 PLTS 523* 537* 580* No results for input(s): ALKPHOS, ALT, AST, BILIRUBINDIR, ALB in the last 72 hours. Invalid input(s): BILI ASSESSMENT/PLAN: Active problems: Patient Active Hospital Problem List: Invalid input(s): BILI HBV immune Tspot, TPMT pending ASSESSMENT/PLAN: Active problems: Patient Active Hospital Problem List: Left-sided Ulcerative proctitis ?? Assessment: Previously has taken Canasa, Lialda, and recent steroid burst.?? Unclear to what degree her current symptoms are due to this vs Cdiff ?? Plan: 1.?? Check TPMT, Tspot, HBV in anticipation of future biologic or immunomodulator. 2.?? Follow daily labs including CRP 3. Flex sig today for further evaluation and biopsy - if UC looks to be more active, will consider addition of steroids and prophylactic Lovenox. C. difficile colitis (07/25/2016) ?? 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 No improvement after 3d IV Flagyl and po Vanco ?? Plan: 1.?? Continue PO Vanco.?? She will need a prolonged Vanco taper on discharge as this is hersecond episode.? 2.?? Advance to BRAT 2 diet for comfort 3.?? AXR today to exclude megacolon given her complaints of nausea and distention, although clinicalexam is not suggestive of this. 4.?? Trial conversion to IV Fentanyl for improved pain control [employer] Luda Diaz RN - 07/28/2016 10:13 AM CST O:nausea-emesis/ pain D: awake States has been throwing up frequently since 12n yesterday A: Reviewed mar To see she has been getting zofran q 4-6 hrs Pain meds q 2-3 hrs R: epaged dr for additional nausea med order [employer] Asia Foreman MD - 07/28/2016 9:15 AM CST DAILY PROGRESS NOTE Subjective: main issues now is n/v Still has blood in stool, abd cramping waiting for flex sig later today Objective: BP 123/71 mmHg Pulse 102 Temp(Src) 36.8 ??C (98.2 ??F) (Oral) Resp 16 Wt 89.903 kg (198 lb 3.2 oz) SpO2 96% LMP (LMP Unknown) Intake/Output Summary (Last 24 hours) at 07/28/16 0915 Last data filed at 07/28/16 0652 Gross per 24 hour Intake 906 ml Output 0 ml Net 906 ml Gen: Alert and conversant, in NAD HEENT: anicteric sclera CARDIAC: RRR, LUNGS: CTA ABDOMEN: soft, , ND, positive BS, no G/R, still has mild TTP EXTREMITIES: no edema , Labs: Lab Results Component Value Date/Time WBC 13.5* 07/17/2016 0938 WHITE BLOOD CELL COUNT 15.2* 07/28/2016726 RBC 5.08 07/17/2016 09 RED BLOOD CELL COUNT 4.06 07/28/2016726 HEMOGLOBIN 12.1 07/28/2016 07 HEMOGLOBIN 15.7 07/17/2016 0938 HCT 43.7 07/17/2016 0938 HEMATOCRIT 36.7 07/28/2016726 MCV 86.0 07/17/2016 09 MEAN CORPUSCULAR VOLUME 90.4 07/28/2016726 RDW 13.3 07/28/2016 07 RDW 12.7 07/17/2016 09 PLATELETS 439 07/17/2016 0938 PLATELET COUNT 580* 07/28/2016726 Lab Results Component Value Date/Time CREATININE 0.61 07/17/2016 0938 CREATININE SERUM 0.77 07/26/2016 0712 GLUCOSE 114 07/17/2016 0938 LAB GLUCOSE 94 07/26/2016 0712 BICARBONATE 28 09/30/2014 0936 CO2 24 07/26/2016 0712 CHLORIDE 104 07/26/2016 0712 CHLORIDE 103 07/17/2016 0938 POTASSIUM 3.4* 07/28/2016 0727 POTASSIUM 3.5 07/17/2016 0938 SODIUM 135* 07/26/2016 0712 SODIUM 135* 07/17/2016 0938 BUN 7 07/17/2016 0938 BLOOD UREA NITROGEN <10 07/26/2016 0712 CALCIUM 7.7* 07/26/2016 0712 CALCIUM 8.9 07/17/2016 0938 GFR, ESTIMATED >60 07/17/2016 0938 GFR, EST., IF BLACK >60 07/17/2016 09 EST GFR AM >60 07/26/2016 0712 EST GFR NON-AFR AM >60 07/26/2016 0712 AXR no megacolon ASSESSMENT AND PLAN: 41-year-old female with ulcerative colitis and recent laparoscopy cholecystectomy. Admitted with worsening abdominal pain and hematochezia, diagnosed with Clostridium difficile colitis. ? Ulcerative colitis and Clostridium difficile colitis.? Continue oral vancomycin and dc flagyl given n/v. Hydration.??Continue a-diarrhea diet. Flex sig later today , not on steroids yet. GI following and input appreciated.?? N/v Dc flagyl, add phenergan and compazine prn. Hypertension, controlled.? Continue to hold diuretics.? Hypokalemia KCl protocol Other medical issues stable. CODE STATUS: Full. DVT PROPHYLAXIS: Contraindicated due to hemorrhagic complications. Disposition TBD Asia Foreman MD 07/28/2016, 3:06 PM [employer] Keyla Rangel RN - 07/27/2016 11:09 PM CST Patient nauseated intermittently throughout shift and continues to rate abdominal pain 6/10 continuously with some sharp cramping at times. Had one large liquid stool, no blood noted. Had 3 emesis episodes, described at mostly yellow bile. Offered IV Zofran, simethicone tablets and dilaudid for pain. She states all are helpful, but pain and nausea persist. Was unable to eat anything solid. Only had afew bits of lemon ice and a few sips of gingerale. Will continue to monitor stools and treat symptoms. Keyla Rangel RN 11:11 PM 07/27/2016 [employer] Suzan Hernandez APRN, IT ARCHITECTURE CONSULTANT - 07/27/2016 1:48 PM CST GASTROENTEROLOGY DAILY PROGRESS NOTE Admit Date: 07/25/2016 SUBJECTIVE: Feels modestly improved today. Continues, however, to have tenesmus and cramping with stool/gas passage. No nausea or vomiting, current clear liquid diet does not particularly exacerbate symptoms. Continues to have liquid small volume stools, at times this is bright red and at times it is liquid brown. No dizziness or syncope when up. She was able to sleep part of the night. OBJECTIVE: Vitals: Temp (24hrs), Min:36.4 ??C (97.6 ??F), Max:36.7 ??C (98.1 ??F) Vital Signs Temp: 36.4 ??C (97.6 ??F), Pulse: 95, Resp: 18, SpO2: 96 %, BP: 98/68 mmHg, O2 Device: room air I/O last 3 completed shifts: In: 1908 [Oral:340; IV:1568] Out: 450 [Urine:400; Stool:50] General appearance: alert, cooperative, no distress, appears stated age, Lungs: clear to auscultation bilaterally and Abdomen: rounded, soft, modest diffuse ttp Imaging (past 12 months) Xr Portable Abd Flat 07/26/2016 COMPARISON: CT abdomen and pelvis 07/25/2016, radiograph 02/15/2012 FINDINGS: One view was obtained. Nonobstructive bowel gas pattern. There is fold thickening in the descending colon consistent with colitis. The cecum continues to measure approximately 6 cm in diameter. No pneumatosis, portal venous gas, or gross free peritoneal air. Mild convex left curvature of the lumbar spine with [address] Abd Pelvis W Iv Cont Only 07/25/2016 COMPARISON: 07/19/2016. TECHNIQUE: Images were obtained through the abdomen and pelvis following the administration of 75 mL IOPAMIDOL 61 % IV SOLN contrast. FINDINGS: The visualized lung bases are clear. The visualized distal esophagus is unremarkable. The patient is status post cholecystectomy. The liver, spleen, pancreas, adrenal glands and kidneys are normal. Diffuse wall thickening involving nearly the entire colon with some sparing of the cecum, sigmoid colon and rectum is again noted. There is slightly greater involvement of the distal descending and sigmoid colon than on the priorstudy. Mild pericolonic inflammatory stranding is again noted. No pneumatosis or free air. No herniaor bowel obstruction. There is trace free fluid in the pelvis. No significant adenopathy. No suspicious osseous lesions are identified on review of bone windows. 07/25/2016 IMPRESSION: 1. Findings compatible with colitis may be secondary to the patient's history of ulcerative colitis although infectious colitis including pseudomembranous colitis could have a similar appearance. The distribution would be atypical for ischemic colitis. There is slightly greater involvement of the distal descending and sigmoid colon than on the prior study. Ct Abd Pelvis W Iv Cont Only 07/19/2016 COMPARISON: None. TECHNIQUE: Images were obtained through the abdomen and pelvis followingthe administration of 75 mL IOPAMIDOL 61 % IV SOLN contrast. FINDINGS: Subcentimeter hypodense lesion in the inferior spleen on slice 27 is too small to further characterize although the majority of splenic lesions are benign. The solid abdominal organs are otherwise unremarkable. There is diffuse wall thickening of the colon from the level of the mid ascending colon through the distal descending colon. There is mild pericolonic inflammation and vascular engorgement involving the section of the colon as well. There is no pneumatosis, free air, or portal venous gas. Normal appendix. There are several upper normal size lymph nodes in the mesentery of the mid and lower abdomen which are nonspecific although most likely reactive. No free fluid or fluid collections. Uterus and ovaries are grossly unremarkable. No acute findings otherwise. 07/19/2016 IMPRESSION: 1. Moderate wall thickening and pericolonic inflammation and vascular engorgement involving the colon from the level of the mid ascending colon to the distal descending colon. Findings compatible with nonspecific colitis. No free air, pneumatosis, or portal venous gas and no freefluid or fluid collections. 2. No acute findings otherwise. Us Abd Ruq Organs 07/05/2016 COMPARISON: None. FINDINGS: Pancreas: Appears unremarkable. Liver: Contour appears unremarkable. Parenchyma appears unremarkable. Gallbladder: Cholelithiasis without pericholecystic fluid. Sonographic Goldman's Sign: No. CBD: .70 cm. Right Kidney: Measures 9.9 x 4.7 x 4.9 cm. Appears unremarkable. Ascites: None. 07/05/2016 IMPRESSION: Cholelithiasis without sonographic findings of cholecystitis. Labs: Recent Labs 07/25/16 0945 07/26/16 0712 07/27/16 0710 WBC 16.7* 18.8* 14.1* HGB 13.6 11.8 12.1 PLTS 611* 523* 537* No results for input(s): ALKPHOS, ALT, AST, BILIRUBINDIR, ALB in the last 72 hours. Invalid input(s): BILI HBV immune Tspot, TPMT pending ASSESSMENT/PLAN: Active problems: Patient Active Hospital Problem List: Left-sided Ulcerative colitis with rectal bleeding (HRC) (07/25/2016) ?? Assessment: Previously has taken Canasa, Lialda, and recent steroid burst.?? Currently not on active therapy.?? If her treatment for Cdiff (see below) does not improve her colitis symptoms in the next couple of days, will need to consider escalation of therapy for this. ?? Plan: 1.?? Check TPMT, Tspot, HBV in anticipation of future biologic or immunomodulator. 2.?? Follow daily labs C. difficile colitis (07/25/2016) ?? 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 Plan: 1.?? Continue IV Flagyl, PO Vanco.?? She will need a prolonged Vanco taper on discharge as this is her second episode.? 2.?? Advance to BRAT 2 diet 3.?? Follow daily CBC 4.?? Trial simethicone and Bentyl for gas/cramping pain [employer]IVE SERVICES PRODUCER Asia Foreman MD - 07/27/2016 8:55 AM CST DAILY PROGRESS NOTE Subjective: Slept last night, still has pain , using pain meds every 2 hrs, still loose stools with blood, teresa clears, no f/c. Objective: BP 98/68 mmHg Pulse 95 Temp(Src) 36.4 ??C (97.6 ??F) (Oral) Resp 18 Wt 89.903 kg (198 lb 3.2oz) SpO2 96% LMP (LMP Unknown) Intake/Output Summary (Last 24 hours) at 07/27/16 0855 Last data filed at 07/27/16 0610 Gross per 24 hour Intake 1908 ml Output 450 ml Net 1458 ml Gen: Alert and conversant, in NAD HEENT: anicteric sclera CARDIAC: RRR, LUNGS: CTA ABDOMEN: soft, , ND, positive BS, no G/R, still has mild TTP EXTREMITIES: no edema , Labs: Lab Results Component Value Date/Time WBC 13.5* 07/17/2016 0938 WHITE BLOOD CELL COUNT 14.1* 07/27/2016 0710 RBC 5.08 07/17/2016 0938 RED BLOOD CELL COUNT 4.06 07/27/2016 0710 HEMOGLOBIN 12.1 07/27/2016 0710 HEMOGLOBIN 15.7 07/17/2016 0938 HCT 43.7 07/17/2016 0938 HEMATOCRIT 36.7 07/27/2016 0710 MCV 86.0 07/17/2016 0938 MEAN CORPUSCULAR VOLUME 90.4 07/27/2016 0710 RDW 13.1 07/27/2016 0710 RDW 12.7 07/17/2016 0938 PLATELETS 439 07/17/2016 0938 PLATELET COUNT 537* 07/27/2016 0710 Lab Results Component Value Date/Time CREATININE 0.61 07/17/2016 0938 CREATININE SERUM 0.77 07/26/2016 0712 GLUCOSE 114 07/17/2016 0938 LAB GLUCOSE 94 07/26/2016 0712 BICARBONATE 28 09/30/2014 0936 CO2 24 07/26/2016 0712 CHLORIDE 104 07/26/2016 0712 CHLORIDE 103 07/17/2016 0938 POTASSIUM 3.6 07/27/2016 0710 POTASSIUM 3.5 07/17/2016 0938 SODIUM 135* 07/26/2016 0712 SODIUM 135* 07/17/2016 0938 BUN 7 07/17/2016 0938 BLOOD UREA NITROGEN <10 07/26/2016 0712 CALCIUM 7.7* 07/26/2016 07 CALCIUM 8.9 07/17/2016 0938 GFR, ESTIMATED >60 07/17/2016 0938 GFR, EST., IF BLACK >60 07/17/2016 0938 EST GFR AM >60 07/26/2016 0712 EST GFR NON-AFR AM >60 07/26/2016 0712 AXR no megacolon ASSESSMENT AND PLAN: 41-year-old female with ulcerative colitis and recent laparoscopy cholecystectomy. Admitted with worsening abdominal pain and hematochezia, diagnosed with Clostridium difficile colitis. ? Ulcerative colitis and Clostridium difficile colitis.? Given improvement with tx for c diff steroids will not be initiated. Continue iv Flagyl and oral vancomycin. Hydration.?? Continue clears. GI following and input appreciated.?? Hypertension, controlled.? Continue to hold diuretics.? Hypokalemia KCl protocol Other medical issues stable. CODE STATUS: Full. DVT PROPHYLAXIS: Contraindicated due to hemorrhagic complications. Disposition TBD D/w pt Asia Foreman MD 07/27/2016, 10:36 AM [employer]IVE SERVICES PRODUCER Oz Lara RN - 07/26/2016 11:03 PM CST O: Patient Update D: Small, newsome-red stool x 2 this evening. A: Pt reported better pain relief than previous day. Tolerated orange and lemon ice sherbert for dinner. R: Will continue to monitor pain and stool output. Suzan Brownlee APRN, IT ARCHITECTURE CONSULTANT - 07/26/2016 2:50 PM CST GASTROENTEROLOGY DAILY PROGRESS NOTE Admit Date: 07/25/2016 SUBJECTIVE: Had a fair amount of diffuse abdominal pain last night requiring frequent narcotics. Slept poorly due to that. Reports liquid stool output every 1-2 hours, largely bloody. Significant tenesmus with passage. Mild nausea without overt vomiting. No fever, chills or rigors. No dizziness or syncope when up. OBJECTIVE: Vitals: Temp (24hrs), Min:36.8 ??C (98.3 ??F), Max:37.1 ??C (98.7 ??F) Vital Signs Temp: 36.8 ??C (98.3 ??F), Pulse: 97, Resp: 20, SpO2: 97 %, BP: 133/84 mmHg, O2 Device: room air General appearance: alert, cooperative, no distress, appears stated age, Lungs: clear to auscultation bilaterally and Abdomen: rounded, soft, mild diffuse ttp without peritoneal signs Imaging (past 12 months) Xr Portable Abd Flat 07/26/2016 COMPARISON: CT abdomen and pelvis 07/25/2016, radiograph 02/15/2012 FINDINGS: One view was obtained. Nonobstructive bowel gas pattern. There is fold thickening in the descending colon consistent with colitis. The cecum continues to measure approximately 6 cm in diameter. No pneumatosis, portal venous gas, or gross free peritoneal air. Mild convex left curvature of the lumbar spine with [address] Abd Pelvis W Iv Cont Only 07/25/2016 COMPARISON: 07/19/2016. TECHNIQUE: Images were obtained through the abdomen and pelvis following the administration of 75 mL IOPAMIDOL 61 % IV SOLN contrast. FINDINGS: The visualized lung bases are clear. The visualized distal esophagus is unremarkable. The patient is status post cholecystectomy. The liver, spleen, pancreas, adrenal glands and kidneys are normal. Diffuse wall thickening involving nearly the entire colon with some sparing of the cecum, sigmoid colon and rectum is again noted. There is slightly greater involvement of the distal descending and sigmoid colon than on the priorstudy. Mild pericolonic inflammatory stranding is again noted. No pneumatosis or free air. No herniaor bowel obstruction. There is trace free fluid in the pelvis. No significant adenopathy. No suspicious osseous lesions are identified on review of bone windows. 07/25/2016 IMPRESSION: 1. Findings compatible with colitis may be secondary to the patient's history of ulcerative colitis although infectious colitis including pseudomembranous colitis could have a similar appearance. The distribution would be atypical for ischemic colitis. There is slightly greater involvement of the distal descending and sigmoid colon than on the prior study. Ct Abd Pelvis W Iv Cont Only 07/19/2016 COMPARISON: None. TECHNIQUE: Images were obtained through the abdomen and pelvis followingthe administration of 75 mL IOPAMIDOL 61 % IV SOLN contrast. FINDINGS: Subcentimeter hypodense lesion in the inferior spleen on slice 27 is too small to further characterize although the majority of splenic lesions are benign. The solid abdominal organs are otherwise unremarkable. There is diffuse wall thickening of the colon from the level of the mid ascending colon through the distal descending colon. There is mild pericolonic inflammation and vascular engorgement involving the section of the colon as well. There is no pneumatosis, free air, or portal venous gas. Normal appendix. There are several upper normal size lymph nodes in the mesentery of the mid and lower abdomen which are nonspecific although most likely reactive. No free fluid or fluid collections. Uterus and ovaries are grossly unremarkable. No acute findings otherwise. 07/19/2016 IMPRESSION: 1. Moderate wall thickening and pericolonic inflammation and vascular engorgement involving the colon from the level of the mid ascending colon to the distal descending colon. Findings compatible with nonspecific colitis. No free air, pneumatosis, or portal venous gas and no freefluid or fluid collections. 2. No acute findings otherwise. Us Abd Ruq Organs 07/05/2016 COMPARISON: None. FINDINGS: Pancreas: Appears unremarkable. Liver: Contour appears unremarkable. Parenchyma appears unremarkable. Gallbladder: Cholelithiasis without pericholecystic fluid. Sonographic Goldman's Sign: No. CBD: .70 cm. Right Kidney: Measures 9.9 x 4.7 x 4.9 cm. Appears unremarkable. Ascites: None. 07/05/2016 IMPRESSION: Cholelithiasis without sonographic findings of cholecystitis. Labs: Recent Labs 07/25/16 0945 07/26/16 0712 WBC 16.7* 18.8* HGB 13.6 11.8 PLTS 611* 523* No results for input(s): ALKPHOS, ALT, AST, BILIRUBINDIR, ALB in the last 72 hours. Invalid input(s): BILI ASSESSMENT/PLAN: Active problems: Patient Active Hospital Problem List: Left-sided Ulcerative colitis with rectal bleeding (HRC) (07/25/2016) Assessment: Previously has taken Canasa, Lialda, and recent steroid burst. Currently not on active therapy. If her treatment for Cdiff (see below) does not improve her colitis symptoms in the next couple of days, will need to consider escalation of therapy for this. Plan: 1. Check TPMT, Tspot, HBV in anticipation of future biologic or immunomodulator. 2. Follow daily labs C. 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 Continue IV Flagyl, PO Vanco. She will need a prolonged Vanco taper on discharge as this is her second episode. 2. Scant clear liquids for comfort 3. Follow daily CBC 4. AXR today to monitor for megacolon given significant pain overnight - although doubt given her stable clinical abdominal exam. Addendum: AXR reviewed, no significant pathology. Continue supportive cares as above TIVE SERVICES PRODUCER Asia Foreman MD - 07/26/2016 11:15 AM CST DAILY PROGRESS NOTE Subjective: Lots of cramping last night, bloody diarrhea. Feeling better his morning. Pain improved, still feels bloated, less blood in stool and overall feels improved. No f/c. NPO and wondering about food. Objective: BP 133/84 mmHg Pulse 97 Temp(Src) 36.8 ??C (98.3 ??F) (Oral) Resp 20 Wt 89.721 kg (197 lb 12.8 oz) SpO2 97% LMP (LMP Unknown) No intake or output data in the 24 hours ending 07/26/16 1115 Gen: Alert and conversant, in NAD HEENT: anicteric sclera CARDIAC: RRR, LUNGS: CTA ABDOMEN: soft, , ND, positive BS, no G/R, mild TTP EXTREMITIES: no edema , Labs: Lab Results Component Value Date/Time WBC 13.5* 07/17/2016 0938 WHITE BLOOD CELL COUNT 18.8* 07/26/2016 0712 RBC 5.08 07/17/2016 0938 RED BLOOD CELL COUNT 3.93 07/26/2016 07 HEMOGLOBIN 11.8 07/26/2016 07 HEMOGLOBIN 15.7 07/17/2016 0938 HCT 43.7 07/17/2016 0938 HEMATOCRIT 35.3 07/26/2016 07 MCV 86.0 07/17/2016 0938 MEAN CORPUSCULAR VOLUME 89.8 07/26/2016 07 RDW 13.0 07/26/2016 0712 RDW 12.7 07/17/2016 0938 PLATELETS 439 07/17/2016 0938 PLATELET COUNT 523* 07/26/2016 0712 Lab Results Component Value Date/Time CREATININE 0.61 07/17/2016 0938 CREATININE SERUM 0.77 07/26/2016 0712 GLUCOSE 114 07/17/2016 0938 LAB GLUCOSE 94 07/26/2016 0712 BICARBONATE 28 09/30/2014 0936 CO2 24 07/26/2016 0712 CHLORIDE 104 07/26/2016 0712 CHLORIDE 103 07/17/2016 0938 POTASSIUM 3.3* 07/26/2016 0712 POTASSIUM 3.5 07/17/2016 0938 SODIUM 135* 07/26/2016 0712 SODIUM 135* 07/17/2016 0938 BUN 7 07/17/2016 0938 BLOOD UREA NITROGEN <10 07/26/2016 0712 CALCIUM 7.7* 07/26/2016 07 CALCIUM 8.9 07/17/2016 0938 GFR, ESTIMATED >60 07/17/2016 0938 GFR, EST., IF BLACK >60 07/17/2016 0938 EST GFR AM >60 07/26/2016 0712 EST GFR NON-AFR AM >60 07/26/2016 0712 ASSESSMENT AND PLAN: 41-year-old female with ulcerative colitis and recent laparoscopy cholecystectomy. Admitted with worsening abdominal pain and hematochezia, diagnosed with Clostridium difficile colitis. ? Ulcerative colitis and Clostridium difficile colitis.? Given improvement with tx for c diff steroids will not be initiated. Continue iv Flagyl and oral vancomycin. Hydration.?Clears. GI consult appreciated.?? Hypertension, controlled.? Hold diuretics.? Hypokalemia KCl protocol Other medical issues stable. CODE STATUS: Full. DVT PROPHYLAXIS: Contraindicated due to hemorrhagic complications. Disposition TBD D/w pt and GI Asia Foreman MD 07/26/2016, 11:42 AM TIVE SERVICES PRODUCER Barb Modi RN - 07/26/2016 4:09 AM CST O: Pain control D: Pt reporting pain 6 - 8/10 throughout night and states that the pain seems to get worse at night than during the day. A: Administered 0.5 mg IV dilaudid about q2h per PRN orders. R: Seems to help, but has not brought pt's down to a tolerable level. Pt unable to sleep during the night. Pt remains NPO. Continue to monitor and provide comfort and safety measures. TIVE SERVICES PRODUCER Karina Wilson RN - 07/25/2016 7:31 PM CST The patient is here with abdomen pain.Fluids running.Pain medication given once.Alert very pleasant.Antibiotics started and given.Recent hiram 07-12-18.Npo now. TIVE SERVICES PRODUCER documented in this encounter Procedure Notes Eusebio Mcmanus MD - 07/28/2016 2:37 PM CST Patient Name: Idania Moran Procedure Date: 07/28/2016 1:40 PM Date of : 1975 Admit Type: Outpatient Age: 41 Gender: Female Note Status: Finalized Attending MD: Eusebio Mcmanus MD Procedure: Flexible Sigmoidoscopy Indications: Generalized abdominal pain, Diarrhea, Abnormal CT of the GI tract, Disease activity assessment of chronic ulcerative pancolitis Providers: Eusebio Mcmanus MD, Kerry Warren Referring MD: Basia Castillo Medicines: Fentanyl 100 micrograms IV, Midazolam 3 mg IV Complications: No immediate complications. Procedure: After obtaining informed consent, the scope was passed under direct vision. The [id number] was introduced through the anus and advanced to the sigmoid colon. The flexible sigmoidoscopy was accomplished without difficulty. The patient tolerated the procedure well. The quality of the bowel preparation was adequate. Findings: A diffuse area of moderately congested, erythematous, eroded and friable (with contact bleeding) mucosa was found in the rectum, in the recto-sigmoid colon and in the sigmoid colon. Biopsies were taken with a cold forceps for histology. Impression: - Congested, erythematous, eroded and friable (with contact bleeding) mucosa in the rectum, in the recto-sigmoid colon and in the sigmoid colon. Biopsied. - Persistent symptoms despite appropriate treatment for C. Difficile suggests that IBD (UC) is the dominant factor at this time. Recommendation: - Await pathology results. - Initiate Rx with IV steroids. - continue po vancomycin. - continue to monitor stool output. Procedure Code(s): --- Professional --- 03267, Sigmoidoscopy, flexible; with biopsy, single or multiple Diagnosis Code(s): --- Professional --- K62.89, Other specified diseases of anus and rectum K63.89, Other specified diseases of intestine K62.5, Hemorrhage of anus and rectum K92.2, Gastrointestinal hemorrhage, unspecified R10.84, Generalized abdominal pain R19.7, Diarrhea, unspecified K51.00, Ulcerative (chronic) pancolitis without complications R93.3, Abnormal findings on diagnostic imaging of other parts of digestive tract CPT copyright 2014 [employer]. All rights reserved. The codes documented in this report are preliminary and upon sample room supervisor review may be revised to meet current compliance requirements. Eusebio Mcmanus MD 07/28/2016 2:37:39 PM This document has been electronically signed. Number of Addenda: 0 Note Initiated On: 07/28/2016 1:40 PM Endoscopy Report TIVE SERVICES PRODUCER documented in this encounter Consult Notes Beth Emerson RN - 07/26/2016 11:10 AM CSTAssociated Order(s): CONSULT CARE INTEGRATION Care Integration: Request for Care Integration consult received. Patient???s status and needs were reviewed with nursing staff. I met with patient at bedside for assessment of discharge planning needs. Patient is alert and oriented x3, conversant, and able to participate in discharge planning. Patient does not anticipate any needs upon discharge and nursing indicated no concerns at this time. Care Integration will continue to follow and will remain available to assist should further needs arise. TIVE SERVICES PRODUCER Eusebio Mcmanus MD - 07/25/2016 3:40 PM CST Hospital Consultation Idania Moran 1975 MR# [id number] [facility]# [id number] Date of Admission: 07/25/2016 Date of Visit: @DATE@ Chief Complaint: abd pain, diarrhea, rectal bleeding HPI: 41 yo female admitted with abd pain, diarrhea, rectal bleeding, + C. Diff toxin. Diagnosed withdistal UC 08/2015, treated with canasa (and brief lialda). Developed increasing epigastric pain in Jun 2016. EGD 07/06 unremarkable. Saw Gen Surg who thought this was biliary colic, pt had lap hiram 07/12/16. During the operation, the hepatic flexure region of the colon appeared edematous. Was seen in UCafter surgery on 07/17 with n/diarrhea; returned to ER 07/19 where her C. Diff was negative, but a CT showed diffuse colitis. Stool cultures negative. Prednisone 40 mg po qd started 07/20. Saw PCP 07/21 felt a bit better, but since then symptoms have worsened. To ER today with diarrhea, rectal bleeding, and severe abd pain. Repeat C. Diff today now positive. CT #2 today shows persistent, slightly worsened, colitis. She reports to me today that she has C. Diff in the past, unclear when. IBD History: Disease: UC Age at diagnosis: 40 Extent: rectum (initial) with cecal patch ; may be evolving into britt-colonic Dx Phenotype: na Perianal involvement: no Extraintestinal manifestations: no Prior IBD treatment: Oral 5 ASA: lialda 2015 Topical 5 ASA: canasa Topical steroids: no Steroids: Prednisone 06/2016 Immunomodulators: no Biologics: no Prior surgery: no surgery Colonoscopy 08/2015: Moderate to severe rectal inflammation with mild patchy inflammation in the cecum / AO area. Biopsies show chronic inflammation in the rectum. EGD 07/06/16: Ind: Epigastric pain, Find: patchy mild gastritis, biopsies mild non-specific inflammation, HP neg. PMH: Patient Active Problem List Diagnosis ??? Irritable bowel syndrome ??? Malignant melanoma of skin of trunk, except scrotum (HRC) ??? Chronic headaches ??? BCC (basal cell carcinoma), leg ??? HTN (hypertension) (HRC) ??? Concussion ??? Overweight (HRC) ??? History of tobacco use ??? Hx of tonsillectomy ??? Ulcerative colitis with rectal bleeding (HRC) ??? C. difficile colitis PSH: Past Surgical History Procedure Laterality Date ??? Tonsillectomy ??? Cyst removal left wrist ??? Lap cholecystectomy 07/12/2016 Outpatient Meds: (Not in an outpatient encounter) Inpatient Meds: Scheduled Meds: Continuous Infusions: Social History: reports that she quit smoking about 15 months ago. Her smoking use included Cigarettes. She has a 3.75 pack-year smoking history. She has never used smokeless tobacco. She reports that she drinks alcohol. She reports that she does not use illicit drugs. Family History: family history includes Cancer, Prostate in her maternal grandfather; Dementia in her maternal grandmother. There is no history of Heart Disease, Stroke, Cancer, Breast, Cancer, Colon, DVT/PE, Thyroid Disorder, or Diabetes. ROS: negative except per HPI PE: Filed Vitals: 07/25/16 1331 07/25/16 1401 07/25/16 1431 BP: 120/73 114/78 112/77 Pulse: 102 100 92 Temp: Resp: SpO2: 95% 94% 93% Gen - looks well, mildly uncomfortable Heent - no icterus CV - tachy but regular Abd - diffuse lower abdominal discomfort, no rebound ext - no edema Labs: Lab Results Component Value Date/Time WBC 13.5* 07/17/2016 0938 WHITE BLOOD CELL COUNT 16.7* 07/25/2016 0945 HGB 15.7 07/17/2016 0938 HEMOGLOBIN 13.6 07/25/2016 0945 HCT 43.7 07/17/2016 0938 HEMATOCRIT 39.5 07/25/2016 0945 MCV 86.0 07/17/2016 0938 MEAN CORPUSCULAR VOLUME 88.6 07/25/2016 0945 PLTS 439 07/17/2016 0938 PLATELET COUNT 611* 07/25/2016 0945 Lab Results Component Value Date/Time ALK PHOS 174* 07/19/2016 1221 BILIRUBIN TOTAL 0.4 07/19/2016 1221 BILIRUBIN, DIRECT 0.2 07/19/2016 1221 PROTEIN TOTAL, SERUM 7.2 07/19/2016 1221 ALBUMIN 2.9* 07/19/2016 1221 ASPARTATE AMINOTRANSFERASE 54* 07/19/2016 1221 ALANINE AMINOTRANSFERASE 62* 07/19/2016 1221 Lab Results Component Value Date/Time SODIUM 135* 07/25/2016 0944 SODIUM 135* 07/17/2016 0938 POTASSIUM 3.5 07/25/2016 0944 POTASSIUM 3.5 07/17/2016 0938 CHLORIDE 101 07/25/2016 0944 CHLORIDE 103 07/17/2016 0938 BICARBONATE 28 09/30/2014 0936 CO2 24 07/25/2016 0944 Lab Results Component Value Date/Time CREATININE 0.61 07/17/2016 0938 CREATININE SERUM 0.78 07/25/2016 0944 Imaging (Past 12 months): Ct Abd Pelvis W Iv Cont Only 07/25/2016 COMPARISON: 07/19/2016. TECHNIQUE: Images were obtained through the abdomen and pelvis following the administration of 75 mL IOPAMIDOL 61 % IV SOLN contrast. FINDINGS: The visualized lung bases are clear. The visualized distal esophagus is unremarkable. The patient is status post cholecystectomy. The liver, spleen, pancreas, adrenal glands and kidneys are normal. Diffuse wall thickening involving nearly the entire colon with some sparing of the cecum, sigmoid colon and rectum is again noted. There is slightly greater involvement of the distal descending and sigmoid colon than on the priorstudy. Mild pericolonic inflammatory stranding is again noted. No pneumatosis or free air. No herniaor bowel obstruction. There is trace free fluid in the pelvis. No significant adenopathy. No suspicious osseous lesions are identified on review of bone windows. 07/25/2016 IMPRESSION: 1. Findings compatible with colitis may be secondary to the patient's history of ulcerative colitis although infectious colitis including pseudomembranous colitis could have a similar appearance. The distribution would be atypical for ischemic colitis. There is slightly greater involvement of the distal descending and sigmoid colon than on the prior study. Ct Abd Pelvis W Iv Cont Only 07/19/2016 COMPARISON: None. TECHNIQUE: Images were obtained through the abdomen and pelvis followingthe administration of 75 mL IOPAMIDOL 61 % IV SOLN contrast. FINDINGS: Subcentimeter hypodense lesion in the inferior spleen on slice 27 is too small to further characterize although the majority of splenic lesions are benign. The solid abdominal organs are otherwise unremarkable. There is diffuse wall thickening of the colon from the level of the mid ascending colon through the distal descending colon. There is mild pericolonic inflammation and vascular engorgement involving the section of the colon as well. There is no pneumatosis, free air, or portal venous gas. Normal appendix. There are several upper normal size lymph nodes in the mesentery of the mid and lower abdomen which are nonspecific although most likely reactive. No free fluid or fluid collections. Uterus and ovaries are grossly unremarkable. No acute findings otherwise. 07/19/2016 IMPRESSION: 1. Moderate wall thickening and pericolonic inflammation and vascular engorgement involving the colon from the level of the mid ascending colon to the distal descending colon. Findings compatible with nonspecific colitis. No free air, pneumatosis, or portal venous gas and no freefluid or fluid collections. 2. No acute findings otherwise. Us Abd Ruq Organs 07/05/2016 COMPARISON: None. FINDINGS: Pancreas: Appears unremarkable. Liver: Contour appears unremarkable. Parenchyma appears unremarkable. Gallbladder: Cholelithiasis without pericholecystic fluid. Sonographic Goldman's Sign: No. CBD: .70 cm. Right Kidney: Measures 9.9 x 4.7 x 4.9 cm. Appears unremarkable. Ascites: None. 07/05/2016 IMPRESSION: Cholelithiasis without sonographic findings of cholecystitis. IMPRESSION: 1. Colitis - Favor acute C. Difficile Colitis given a) past h/o C. Diff, b) recent hospitalization, c) immunosuppression with prednisone, d) worsening of symptoms despite prednisone, e) new + C. Diff toxin - Underlying UC remains an issue, and this can also flare concomitantly with C. Diff; however, at this point, gaining control of the infectious process is the priority. Once we are confident that the patient is on appropriate anti-CDI Rx, if symptoms persist, we will consider urgent anti-UC Rx. - For now, I recommend stopping prednisone - Agree with oral vancomycin 250 mg po qid. IV Flagyl has already been added and it is reasonable to continue this until symptoms are clearly improving. - A clear liquid diet s/b started; if diarrhea and pain persists over night, this should be discontinued and the patient s/b npo. - supportive care with IVF, pain meds, etc. PLAN: 1. As above 2. GI to follow Tt: [address]: > 25 min, The focus of this visit today was a review of symptoms and history, a discussion ofthe potential explanations for these symptoms and findings, and formation of a management plan. [employer]ODUC[employer] documented in this encounter OR Notes Deya&P - Asia Foreman MD - 07/25/2016 3:19 PM CST NAME: IDANIA MORAN MR#: [id number] CSN: [id number] AUTHENTICATING CLINICIAN: Asia Foreman MD CONFIRM #: [id number] LOC: 1 HOSPITAL HISTORY AND PHYSICAL DATE OF SERVICE: 07/25/2016 DATE OF : 1975 CHIEF COMPLAINT: Abdominal pain. HISTORY OF PRESENT ILLNESS: Ms. Moran is a pleasant 41-year-old female with past medical history significant for ulcerative colitis, hypertension, obesity and history of tobacco abuse. She has had on-and-off abdominal pain with intermittent rectal bleeding since spring 2015. Most recently, has been evaluated for right upper quadrant discomfort and was found to have gallstones on ultrasound. She underwent an uncomplicated laparoscopic cholecystectomy on 07/12/2016. During the surgery, she was noted to have a fair amount of edema in the region of the hepatic flexure of the colon. Shedid receive her routine preoperative antibiotics. She subsequently continued to have abdominal pain,nausea, vomiting, fevers. She was seen in Urgent Care on 07/19 and was started on prednisone 40 mg daily. Clostridium difficile PCR on 07/19/2016 was negative. She continued to feel poorly with worsening abdominal pain and hematochezia. She presented to the emergency room today and reported bloody bowel movements every 5-10 minutes. She also had rectal discomfort. She was tachycardic but her blood pressure was normal. C difficile PCR returned positive. Otherwise, complete review of systems negative. 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 SOCIAL HISTORY: She is a former smoker. Drinks alcohol during social occasions only. 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 FAMILY HISTORY: Negative for GI malignancy or inflammatory bowel disease. ADVERSE DRUG REACTIONS: None. MEDICATIONS PRIOR TO ADMISSION: Medication List ASK your doctor about these medications amitriptyline 25 MG tablet Commonly known as: ELAVIL TAKE 1-2 TABLETS BY MOUTH NIGHTLY. Calcium Carbonate Antacid 1000 MG dicyclomine 20 MG tablet Commonly known as: BENTYL Take 1 Tab by mouth 4 times daily as needed (Take 1 tablet by mouth 4 times daily as needed.). HYDROcodone-acetaminophen 5-325 MG tablet Commonly known as: NORCO Take 1-2 Tabs by mouth every 4 hours as needed for Pain. Maximum acetaminophen dose is 4000 mg in 24hours. * mesalamine 1000 MG suppository Commonly known as: CANASA Place 1 suppository rectally nightly. * mesalamine 1.2 G enteric coated tablet Commonly known as: LIALDA 4.8gm daily, starting when the prednisone dose is weaned to 20mg. MULTI-VITAMIN OR norethindrone-eth estradiol 1-35 MG-MCG tablet Commonly known as: NORINYL,ORTHONOVUM Take 1 tablet by mouth daily TAKE ACTIVE PILLS DAILY THEN DISCARD INACTIVE PILLS AND IMMEDIATELY START NEXT PACK. TAKING CONTINUOUSLY norethindrone-eth estradiol 1-35 MG-MCG tablet Commonly known as: NORINYL,ORTHONOVUM Take 1 tablet by mouth daily (every 24 hours). PATIENT TAKES CONTINOUSLY ondansetron 4 MG disintegrating tablet Commonly known as: ZOFRAN-ODT Take 1 Tab by mouth every 8 hours as needed. potassium chloride 20 MEQ tablet Commonly known as: K-DUR,KLOR-CONM Take 1 Tab by mouth daily. predniSONE 20 MG tablet Commonly known as: DELTASONE Take 2 Tabs by mouth daily. Call next Sunday with progress report and for tapering schedule promethazine 25 MG tablet Commonly known as: PHENERGAN Take 1 Tab by mouth every 6 hours as needed for Nausea. topiramate 25 MG tablet Commonly known as: TOPAMAX Take 0.5 Tabs by mouth two times a day. triamterene-hydrochlorothiazide 37.5-25 MG tablet Commonly known as: MAXZIDE-25 Take 1 tablet by mouth daily (every 24 hours). * Notice: This list has 2 medication(s) that are the same as other medications prescribed for you. Read the directions carefully, and ask your doctor or other care provider to review them with you. PHYSICAL EXAM: VITAL SIGNS: Temperature 36.8, pulse 102, blood pressure 120/73, respiration 12, saturation 95%. GENERAL APPEARANCE: She is alert, oriented, pleasant, no apparent distress. NECK: Supple. No JVD. BP 142/75 mmHg Pulse 90 Temp(Src) 36.9 ??C (98.4 ??F) (Oral) Resp 16 Wt 89.721 kg (197 lb 12.8 oz) SpO2 97% LMP (LMP Unknown) No intake or output data in the 24 hours ending 07/26/16 0724 Eyes: normal conjunctivae, lids, pupils. Ent: Normal symmetry, no trauma, normal lips, hearing, mucus membranes. Neck: supple, non-tender, no JVD, masses, normal thyroid gland. Respiratory: Normal to auscultation and palpation, good respiratory effort, no wheezes/crackles Cardiac: RRR, normal S1-S2, normal PMI, carotids, pedal pulses present and symmetric, no peripheral edema. GI: soft, non-tender, non-distended, positive bowel sounds, no guarding or rebound, no HSMG, masses. MSK: Normal inspection and palpation, normal gate, normal ROM, strength and tone normal, normal digits and nails, normal stability Skin: No rash Neuro: No motor deficits Psych: Normal judgment, insight, orientation, memory, mood, affect LABORATORY DATA: Sodium 135, potassium 3.5, chloride 101, calcium 8.2, BUN 15, creatinine 0.78, bicarb 24, [id number], WBC 16.7, platelets 611. C difficile PCR positive. Serum test negative. IMAGING: CT of the abdomen and pelvis findings compatible with colitis, may be secondary to the patient's history of ulcerative colitis, although infectious colitis including pseudomembranous colitis would havesimilar appearance, slightly greater involvement of the distal descending and sigmoid colon than on the prior study. ASSESSMENT AND PLAN: Ms. Moran is a very pleasant 41-year-old female with ulcerative colitis and recent laparoscopy cholecystectomy. A dmitted with worsening abdominal pain and hematochezia, now complicated by Clostridium difficile colitis. 1. Ulcerative colitis complicated by Clostridium difficile colitis. Will initiate intravenous Flagyl and oral vancomycin and p.o. hydration. GI consult. Will discuss steroid with GI. 2. Hypertension, controlled. Hold diuretics. Other medical issues stable. CODE STATUS: Full. DVT PROPHYLAXIS: Contraindicated due to hemorrhagic complications. TOTAL TIME 75 MINUTES WILBERK:EAN C: CONFIRM #: [id number] [employer] documented in this encounter ED Notes Milton Chew MD - 07/25/2016 9:25 AM CST Chief Complaint: Abdominal pain and hematochezia HPI: Idania Moran is a 41 y.o. female with a history of ulcerative colitis and S/P lap cholecystectomywho presents to the emergency center for evaluation of lower abdominal pain and bloody stools. The patient reports one month of some nausea diarrhea and abdominal pain. A lot of her abdominal pain was in the right upper quadrant and ultrasound did show gallstones so her gallbladder was removed on the . At the time of surgery it was noted that there was fair amount of edema in the region of the hepatic flexure of the colon. Following the surgery she started having more nausea, diarrhea, and abdominal pain. Fevers to 102F and was seen in urgent care on the . This was thought to be due to ulcerative colitis flare as was also associated with some bloody stools which were somewhat darker in color. Patient started prednisone 40 mg daily 5 days ago without any improvement of her symptoms, in fact has had increasing lower abdominal pain and is now passing bright red stools. Patient states thatshe feels that she has to have a bowel movement every 5-10 minutes and a lot of tenesmus. Over last 24 hours the lower abdominal pain is been much more constant. Patient has been on Canasa suppositories for the last year. Of note, the patient was on Prednisone 40 mg until 07/19 when dose was decreased to 20 mg. Medications: amitriptyline (ELAVIL) 25 MG tablet Calcium Carbonate Antacid 1000 MG dicyclomine (BENTYL) 20 MG tablet mesalamine (CANASA) 1000 MG suppository mesalamine (LIALDA) 1.2 G enteric coated tablet norethindrone-eth estradiol (NORINYL,ORTHONOVUM) 1-35 MG-MCG tablet ondansetron (ZOFRAN-ODT) 4 MG disintegrating tablet potassium chloride (K-DUR,KLOR-CONM) 20 MEQ tablet predniSONE (DELTASONE) 20 MG tablet triamterene-hydrochlorothiazide (MAXZIDE-25) 37.5-25 MG tablet Allergies: Patient has no known allergies to medications. Past Medical History: Irritable bowel syndrome Malignant melanoma of skin of trunk, except scrotum Chronic headaches Basal cell carcinoma, leg Hypertension Concussion Overweight History of tobacco use Melanoma trunk C. Diff Past Surgical History: Tonsillectomy Cyst removal Lap cholecystectomy Family History: The patient has no past pertinent family history. Social History: The patient is single, a former smoker of 0.25 PPD for 15 years (quit 2014), and rarely consumes alcohol. Review of Systems Constitutional: Positive for fever. Gastrointestinal: Positive for nausea, abdominal pain, diarrhea and blood in stool. All other systems reviewed and are negative. Triage Vitals Temp 07/25/16 0810 36.8 ??C (98.3 ??F) Temp src 07/25/16 0810 Oral Pulse 07/25/16 0810 117 Resp 07/25/16 0810 12 BP 07/25/16 0810 140/88 mmHg SpO2 07/25/16 0810 97 % Physical Exam Eyes: Pupils equally round and reactive HENT: Head is normal in appearance. Oropharynx is normal with moist mucus membranes. Cardiovascular: Regular rate and rhythm and without murmurs. Respiratory: Normal respiratory effort, lungs are clear bilaterally. GI: Abdomen is soft, diffusely tender in the lower abdomen, non-distended. Steristrips in place, incisions are c/d/i Musculoskeletal: No asymmetry of the lower extremities, no tenderness to palpation. Skin: Normal, without rash. Lymphatic: No edema Neurologic: Cranial nerves grossly intact, nl cognition, no focal deficits. Psychiatric: Normal affect. Imaging: CT abdomen pelvis W IV cont only: Findings compatible with colitis may be secondary to the patient'shistory of ulcerative colitis although infectious colitis including pseudomembranous colitis could have a similar appearance. The distribution would be atypical for ischemic colitis. There is slightly greater involvement of the distal descending and sigmoid colon than on the prior study. Results per Radiology (please see formal Radiology report for further details). Laboratory: CBC with Differential: WBC 16.7 (H), Hgb 13.6 (WNL), Plts 611 (H) o/w WNL Basic Metabolic Panel: Cr. 0.78 (WNL), Glucose 124 (H), Sodium 135 (L), Calcium 8.2 (L), o/w WNL test blood: negative C. Diff by PCR: positive ED Course: Interventions: 1022 Normal Saline 1 L, IV 0953, 1025, 1250 Dilaudid 1 mg, IV 1344 Vancomycin solution 125 mg, PO 1443 Flagyl 500 mg, IV Patient placed on continuous pulse oximetry. Past medical records were reviewed and I examined the patient. IV access was established and above labs and imaging study were ordered and interventions administered. I discussed findings and plan for admission with the patient, who is agreeable. I discussed the patient with the hospitalist, who agrees to admit. Patient is admitted to the hospital in stable condition for further evaluation and treatment. Last EC Vitals: Temp: 36.8 ??C (98.3 ??F) (07/25 809) Temp src: Oral (07/25 809) Pulse: 103 (07/25 1101) Resp: 12 (07/25 809) BP: 123/87 mmHg (07/25 1101) SpO2: 93 % (07/25 1101) Impression and Plan: Idania Moran is a 41 y.o. female who presents with worsening lower abdominal pain and low-grade fevers on prednisone with a history of ulcerative colitis and recent cholecystectomy. Patient has had increased frequency of bloody stools over the last several days with marked increase of her pain especially since last night. Because of recent antibiotics and despite recently negative C. diff I did recheck this today and unfortunately it was positive. Because of my concern for possible perforation given her history and significant left shift on CBC, I did repeat CT scan but this only showed diffuse colitis. It is likely that the colitis is a combination between her ulcerative colitis flare and now n ewer C. diff infection as well. Will treat with IV Flagyl and PO Vanco given severity of her symptoms as well as the fact that she is on steroids. Patient will be admitted to the hospitalist service for pain control, IV fluids, and GI consultation. Patient has had a drop in her hemoglobin and will need to continue to monitor this, but is not currently near the transfusion threshold. Diagnosis: Final diagnoses: [K51.919] Ulcerative colitis with complication, unspecified location (HRC) [K92.1] Hematochezia [R10.30] Lower abdominal pain IJose, am serving as a scribe to document services personally performed by Dr. Chewbased on my observations and the provider's statements to me. 07/25/2016 [facility] Milton Chew MD 07/26/16 0911 [employer] documented in this encounter Plan of Treatment Upcoming Encounters Date Type Specialty Care Team Description 05/05/2022 Appointment Chemo Therapy/Infusion Services 09/15/2022 Telemedicine Gastroenterology Eusebio Haines MD [address] [place] [address] (Wo rk) documented as of this encounter Procedures Procedure Name Priority Date/Time Associated Comments Diagnosis BEDSIDE GLUCOSE Routine 07/30/2016 11:35 Results for this MONITOR POCT AM [employer]ODUCER procedure are i n the results section. BEDSIDE GLUCOSE Routine 07/30/2016 8:15 Results f or this MONITOR POCT AM [employer]UC[employer] procedure are i n the results section. COMPLETE BLOOD Specified Time 07/30/2016 7:37 Results for this COUNT-NO DIFF AM [employer]UC[employer] procedure are in the results section. C-REACTIVE PROTEIN Specified Time 07/30/2016 7:37 Resu lts for this AM [employer]ODUCER procedure are i n the results section. POTASSIUM Specified Time 07/30/2016 7:37 Results fo r this AM [employer]UCER procedure are i n the results section. BEDSIDE GLUCOSE Routine 07/29/2016 9:36 Results f or this MONITOR POCT PM [employer]UCER procedure are i n the results section. ANION GAP Specified Time 07/29/2016 7:28 Results fo r this AM [employer]ER procedure are i n the results section. BASIC METABOLIC Specified Time 07/29/2016 7:28 Results for this PANEL AM [employer] procedure are i n the results section. COMPLETE BLOOD Specified Time 07/29/2016 7:28 Results for this COUNT-NO DIFF AM [employer]UCER procedure are in the results section. MAGNESIUM Specified Time 07/29/2016 7:28 Results fo r this AM [employer]ER procedure are i n the results section. C-REACTIVE PROTEIN Specified Time 07/29/2016 7:28 Resu lts for this AM [employer]UCER procedure are i n the results section. POTASSIUM STAT 07/28/2016 9:15 Results for this PM [employer]UCER procedure are i n the results section. C-REACTIVE PROTEIN STAT 07/28/2016 3:53 Result s for this PM [employer]UCER procedure are i n the results section. ENDOSCOPY OBTAINED Routine 07/28/2016 3:04 Result s for this ANATOMICAL PATH PM [employer]UCER procedure ar e in the results section. ENDOSCOPY, SIGMOID Routine 07/28/2016 1:40 Result s for this PM [employer]UCER procedure are i n the results section. XR ABD FLAT AND Routine 07/28/2016 11:55 Results for this UPRIGHT AM [employer]UC[employer] procedure are i n the results section. COMPLETE BLOOD Specified Time 07/28/2016 7:27 Results for this COUNT-NO DIFF AM [employer]UCER procedure are in the results section. POTASSIUM Specified Time 07/28/2016 7:27 Results fo r this AM [employer] procedure are i n the results section. SURGICAL PATH, PARK Routine 07/28/2016 6:00 Resul ts for this NICOLLET AM [employer] SERVICES [employer]ODUCER procedure are i n the results section. POTASSIUM Specified Time 07/27/2016 1:35 Results fo r this PM [employer]UCER procedure are i n the results section. COMPLETE BLOOD Specified Time 07/27/2016 7:10 Results for this COUNT-NO DIFF AM [employer]UCER procedure are in the results section. MAGNESIUM Specified Time 07/27/2016 7:10 Results fo r this AM [employer] procedure are i n the results section. POTASSIUM Specified Time 07/27/2016 7:10 Results fo r this AM [employer] procedure are i n the results section. POTASSIUM Specified Time 07/26/2016 4:55 Results fo r this PM [employer]ER procedure are i n the results section. MRSA CULTURE Routine 07/26/2016 4:06 Results for this PM [employer]UCER procedure are i n the results section. THIOPURINE Specified Time 07/26/2016 2:23 Results fo r this METHYLTRANSFERASE, PM [employer]UCER procedure are in RBC the results section. TSPOT TUBERCULOSIS Specified Time 07/26/2016 2:23 Resu lts for this TEST PM [employer]UCER procedure are i n the results section. HEPATITIS B VALERIA, Specified Time 07/26/2016 2:23 Result s for this QUANTITATIVE PM [employer]UCER procedure are i n the results section. HEP B SURFACE Specified Time 07/26/2016 2:23 Results f or this ANTIGEN, NO REFLEX PM [employer] procedure are in the results section. XR PORTABLE ABD FLAT Routine 07/26/2016 1:05 Resu lts for this PM [employer] procedure are i n the results section. ANION GAP Specified Time 07/26/2016 7:12 Results fo r this AM [employer] procedure are i n the results section. BASIC METABOLIC Specified Time 07/26/2016 7:12 Results for this PANEL AM [employer]UCER procedure are i n the results section. COMPLETE BLOOD Specified Time 07/26/2016 7:12 Results for this COUNT-NO DIFF AM [employer]UCER procedure are in the results section. MAGNESIUM Specified Time 07/26/2016 7:12 Results fo r this AM [employer] procedure are i n the results section. POTASSIUM Specified Time 07/26/2016 12:30 Results f or this AM [employer] procedure are i n the results section. MRSA CULTURE Routine 07/25/2016 5:20 Results for this PM [employer] procedure are i n the results section. CT ABD PELVIS W IV STAT 07/25/2016 12:09 Resul ts for this CONT ONLY PM [employer]UC[employer] procedure are i n the results section. C.DIFFICILE STAT 07/25/2016 11:13 Results for this TOXIN,MOLECULAR AM [employer] procedure ar e in DETECTION the results section. COMPLETE BLOOD STAT 07/25/2016 9:45 Results fo r this COUNT-W/DIFF AM [employer]UC[employer] procedure are i n the results section. DIFFERENTIAL STAT 07/25/2016 9:45 Results for this AM [employer] procedure are i n the results section. DRAW & HOLD - STAT 07/25/2016 9:44 Results for this INPATIENT ONLY AM [employer] procedure are in the results section. EMERGENCY CENTER STAT 07/25/2016 9:44 Results for this DRAW AND HOLD AM [employer]UCER procedure are in the results section. ANION GAP STAT 07/25/2016 9:44 Results for this AM [employer] procedure are i n the results section. BASIC METABOLIC STAT 07/25/2016 9:44 Results f or this PANEL AM [employer]UCER procedure are i n the results section. HCG,QUALITATIVE, STAT 07/25/2016 9:44 Results for this SERUM AM [employer]UCER procedure ar e in the results section. documented in this encounter Results Bedside Glucose Monitor (07/30/2016 11:35 AM [employer]IVE SERVICES [employer]ODUCER) P athologist Signature Bedside Blood 138 mg/dL PN SOFT Glucose Test Comment: Performed at [address] [place] [address] Specimen Anatomical Collection Method Collection Time Receive d Time (Source) Location / / Volume Laterality 07/30/2016 11:35 07/30/2016 AM [employer]UCER 11:45 AM [employer] SERVICES [employer]ODUCER Robin De La Cruz MD LAB_1 Performing Organization Address City/State/ZIP Code Phon e Number PN SOFT [address] [place] [address] [phone] Bedside Glucose Monitor (07/30/2016 8:15 AM [employer]IVE SERVICES [employer]ODUCER) athologist Signature Bedside Blood 147 mg/dL PN SOFT Glucose Test Comment: Performed at [address] [place] [address] Specimen Anatomical Collection Method Collection Time Receive d Time (Source) Location / / Volume Laterality 07/30/2016 8:15 AM 7 8:20 CREATIVE SERVICES PRODUCER AM [employer]IVE SERVICES PRODUCER Robin De La Cruz MD LAB_1 Performing Organization Address [facility] Phon e Number PN SOFT [address] [place] [address] Potassium (07/30/2016 7:37 AM [employer]IVE SERVICES [employer]ODUCER) athologist Signature Potassium 3.7 3.5 - 5.2 PN SOFT mmol/L Specimen Anatomical Collection Method Collection Time Receive d Time (Source) Location / / Volume Laterality 07/30/2016 7:37 AM 7 7:40 CRE[employer]IVE SERVICES PRODUCER AM [employer]IVE SERVICES PRODUCER Narrative PN SOFT - 07/30/2016 8:17 AM [employer] SERVICES [employer]ODUCER Performed at [address] [address] CLIA number [id number] Suzan Hernandez APRN, CNP LAB_1 Performing Organization Address [facility] Phon e Number PN SOFT [address] [place] [address] (ABNORMAL) C Reactive Protein (07/30/2016 7:37 AM [employer]IVE SERVICES [employer]ODUCER) athologist Signature CRP 3.8 (H) 0.0 - 0.5 PN SOFT mg/dL Specimen Anatomical Collection Method Collection Time Receive d Time (Source) Location / / Volume Laterality 07/30/2016 7:37 AM 7 7:40 CREATIVE SERVICES PRODUCER AM CREATIVE SERVICES PRODUCER Narrative PN SOFT - 07/30/2016 8:17 AM [employer]IVE SERVICES PRODUCER Performed at [address] [address] CLIA number [id number] Suzan Hernandez APRN, CNP LAB_1 Performing Organization Address [facility]/ZIP Code Phon e Number PN SOFT [address] [place] [address] (ABNORMAL) Complete Blood Count-No Diff - Every AM (07/30/2016 7:37 AM [employer]ATIVE SERVICES PRODUCER) [facility] gist Method Time Signature White Blood Cell 14.5 (H) 3.8 - 11.0 PN SOFT Count k/cmm Red Blood Cell 3.95 3.70 - PN SOFT Count 5.20 m/cmm Hemoglobin 11.8 11.8 - PN SOFT 15.5 g/dL Hematocrit 35.8 35.0 - PN SOFT 46.0 % Mean Corpuscular 90.6 80.0 - PN SOFT Volume 100.0 fL RDW 13.2 11.0 - PN SOFT 15.0 % Platelet Count 592 (H) 140 - 450 PN SOFT k/cmm Specimen Anatomical Collection Method Collection Time Receive d Time (Source) Location / / Volume Laterality 07/30/2016 7:37 AM 7 7:40 CREATIVE SERVICES PRODUCER AM [employer]IVE SERVICES PRODUCER Narrative PN SOFT - 07/30/2016 7:46 AM CREATIVE SERVICES PRODUCER Performed at [facility], [address] [place] [address] CLIA number [id number] Suzan Hernandez APRN, IT ARCHITECTURE CONSULTANT LAB_1 Performing Organization Address [facility] Phon e Number PN SOFT [address] [place] [address] Bedside Glucose Monitor (07/29/2016 9:36 PM [employer]IVE SERVICES PRODUCER) athologist [facility] Bedside Blood 224 mg/dL PN SOFT Glucose Test Comment: Performed at [address] [place] [address] Specimen Anatomical Collection Method Collection Time Receive d Time (Source) Location / / Volume Laterality 07/29/2016 9:36 PM 7 9:45 CREATIVE SERVICES PRODUCER PM CREATIVE SERVICES PRODUCER Robin De La Cruz MD LAB_1 Performing Organization Address [facility] Phon e Number PN SOFT [address] [place] [address] Magnesium (07/29/2016 7:28 AM [employer]ATIVE SERVICES PRODUCER) athologist Signature Magnesium 1.6 1.6 - 2.6 PN SOFT mg/dL Specimen Anatomical Collection Method Collection Time Receive d Time (Source) Location / / Volume Laterality 07/29/2016 7:28 AM 7 7:51 CREATIVE SERVICES PRODUCER AM CREATIVE SERVICES PRODUCER Narrative PN SOFT - 07/29/2016 8:30 AM CREATIVE SERVICES PRODUCER Performed at [address] [address] CLIA number [id number] Suzan Hernandez APRN, CNP LAB_1 Performing Organization Address [facility] Phon e Number PN SOFT [address] [place] [address] Anion Gap (07/29/2016 7:28 AM CREATIVE SERVICES PRODUCER) athologist Signature ANION GAP 12 0 - 16 mEq/L PN SOFT Specimen Anatomical Collection Method Collection Time Receive d Time (Source) Location / / Volume Laterality 07/29/2016 7:28 AM 7 7:51 CREATIVE SERVICES PRODUCER AM CREATIVE SERVICES PRODUCER Narrative PN SOFT - 07/29/2016 8:30 AM CREATIVE SERVICES PRODUCER Performed at [address] [address] CLIA number [id number] Suzan Hernandez APRN, CNP LAB_1 Performing Organization Address [facility] Phon e Number PN SOFT [address] [place] [address] (ABNORMAL) C Reactive Protein (07/29/2016 7:28 AM CREATIVE SERVICES PRODUCER) athologist Signature CRP 13.1 (H) 0.0 - 0.5 PN SOFT mg/dL Specimen Anatomical Collection Method Collection Time Receive d Time (Source) Location / / Volume Laterality 07/29/2016 7:28 AM 7 7:51 CREATIVE SERVICES PRODUCER AM CREATIVE SERVICES PRODUCER Narrative PN SOFT - 07/29/2016 8:30 AM CREATIVE SERVICES PRODUCER Performed at [address] [address] CLIA number [id number] Suzan Hernandez APRN, CNP LAB_1 Performing Organization Address [facility] Phon e Number PN SOFT [address] [place] [address] (ABNORMAL) Complete Blood Count-No Diff - Every AM (07/29/2016 7:28 AM CREATIVE SERVICES PRODUCER) [facility] Method Time Signature White Blood Cell 15.2 (H) 3.8 - 11.0 PN SOFT Count k/cmm Red Blood Cell 4.37 3.70 - PN SOFT Count 5.20 m/cmm Hemoglobin 13.4 11.8 - PN SOFT 15.5 g/dL Hematocrit 39.3 35.0 - PN SOFT 46.0 % Mean Corpuscular 89.9 80.0 - PN SOFT Volume 100.0 fL RDW 13.0 11.0 - PN SOFT 15.0 % Platelet Count 609 (H) 140 - 450 PN SOFT k/cmm Specimen Anatomical Collection Method Collection Time Receive d Time (Source) Location / / Volume Laterality 07/29/2016 7:28 AM 7:51 CREATIVE SERVICES PRODUCER AM CREATIVE SERVICES PRODUCER Narrative PN SOFT - 07/29/2016 7:58 AM CREATIVE SERVICES PRODUCER Performed at [address] [place] [address] CLIA number [id number] Suzan Hernandez APRN, IT ARCHITECTURE CONSULTANT LAB_1 Performing Organization Address City/State/[facility] Code Phon e Number PN SOFT [address] [place] [address] (ABNORMAL) Basic Metabolic Panel (07/29/2016 7:28 AM CREATIVE SERVICES PRODUCER) athologist Signature Creatinine 0.57 0.55 - PN SOFT Serum 1.02 mg/dL Lab Glucose 122 (H) 70 - 100 PN SOFT mg/dL Comment: The stated glucose range is for the fast ing state. Non-fasting glucose range is 70-180 mg/d L CO2 20 (L) 22 - 31 mmol/L PN SOFT Chloride 104 98 - 109 mmol/L PN SOFT Potassium 4.0 3.5 - 5.2 mmol/L PN SOFT Sodium 136 136 - 145 mmol/L PN SOFT Blood Urea Nitrogen <10 9 - 26 mg/dL PN SOFT Calcium 7.8 (L) 8.4 - 10.2 mg/dL PN SOFT Est GFR Am >60 >60 mL/min/1.73m2 PN SOFT Est GFR Non-Afr Am >60 >60 mL/min/1.73m2 PN SOFT Comment: Normal>60, moderate decrease 30 - 59, se nay decrease 15 - 29, renal failure <15 mL/min/1.73 m2 NOTE: ??Choose the eGFR result above kenia ropriate for the race of the patient. Specimen Anatomical Collection Method Collection Time Receive d Time (Source) Location / / Volume Laterality 07/29/2016 7:28 AM 7 7:51 CREATIVE SERVICES PRODUCER AM CREATIVE SERVICES PRODUCER Narrative PN SOFT - 07/29/2016 8:30 AM CREATIVE SERVICES PRODUCER Performed at [address] [address] CLIA number [id number] Suzan Hernandez APRN IT ARCHITECTURE CONSULTANT LAB_1 Performing Organization Address [facility] Phon e Number PN SOFT [address] [place] [address] Potassium (07/28/2016 9:15 PM CREATIVE SERVICES PRODUCER) athologist Signature Potassium 3.8 3.5 - 5.2 PN SOFT mmol/L Specimen Anatomical Collection Method Collection Time Receive d Time (Source) Location / / Volume Laterality 07/28/2016 9:15 PM 7 9:20 CREATIVE SERVICES PRODUCER PM CREATIVE SERVICES PRODUCER Narrative PN SOFT - 07/28/2016 9:40 PM CREATIVE SERVICES PRODUCER Performed at [address] [address] CLIA number [id number] Asia Foreman MD LAB_1 Performing Organization Address [facility] Phon e Number PN SOFT [address] [place] [address] (ABNORMAL) C Reactive Protein (07/28/2016 3:53 PM CREATIVE SERVICES PRODUCER) athologist Signature CRP 13.1 (H) 0.0 - 0.5 PN SOFT mg/dL Specimen Anatomical Collection Method Collection Time Receive d Time (Source) Location / / Volume Laterality 07/28/2016 3:53 PM 7 3:59 CREATIVE SERVICES PRODUCER PM CREATIVE SERVICES PRODUCER Narrative PN SOFT - 07/28/2016 4:26 PM CREATIVE SERVICES PRODUCER Performed at [address] [address] CLIA number [id number] .Collection has been rescheduled by IBRIM at 07/28/2016 14:50. Reason: pt .out for endoscopy Suzan Hernandez APRN, CNP LAB_1 Performing Organization Address [facility] Phon e Number PN SOFT [address] [place] [address] Endoscopy Obtained Anatomical Path (07/28/2016 3:04 PM CREATIVE SERVICES PRODUCER) athologist Signature Endo Tis Received PN SOFT Specimen Anatomical Collection Method Collection Time Receive d Time (Source) Location / / Volume Laterality 07/28/2016 3:04 PM 7 3:04 CREATIVE SERVICES PRODUCER PM CREATIVE SERVICES PRODUCER Narrative PN SOFT - 07/28/2016 3:04 PM CREATIVE SERVICES PRODUCER Performed at [address] [address] CLIA number [id number] Suzan Hernandez APRN, CNP LAB_1 Performing Organization Address [facility] Phon e Number PN SOFT [address] [place] [address] Endoscopy, sigmoid (07/28/2016 1:40 PM CREATIVE SERVICES PRODUCER) Specimen (Source) Anatomical Collection Method Collection Time Re ceived Time Location / / Volume Laterality 07/28/2016 1:40 PM CREATIVE SERVICES PRODUCER Narrative GI (PROVATION) - 07/28/2016 1:40 PM CREATIVE SERVICES PRODUCER Patient Name: Idania Moran Procedure Date: 07/28/2016 1:40 PM Date of : 1975 Admit Type: Outpatient Age: 41 Gender: Female Note Status: Finalized Attending MD: Eusebio Mcmanus MD Procedure: ? Flexible Sigmo idoscopy Indications: ? Generalized abd ominal pain, Diarrhea, ? Abnormal CT of the GI tract, Disease ? activity assessment of chronic ? ulcerativ e pancolitis Providers: ? Eusebio sterling MD, Kerry Warren Referring MD: ?Basia Allancock Medicines: ? Fentanyl 100 m icrograms IV, Midazolam ? 3 mg IV Complications: ? No immediate com plications. Procedure: ? After obtainin g informed consent, the ? scope was passed under direct vision. ? The - 190L-20 was introduced ? through t juliet garcia and advanced to the ? sigmoid c olon. The flexible ? sigmoidos copy was accomplished ? without d ifficulty. The patient ? tolerated the procedure well. The ? quality o f the bowel preparation was ? adequate. Findings: ? A diffuse area of moderately rubia ested, erythematous, ? eroded and friable (with contact bleeding) mucosa was ? found in the rectum, in the recto -sigmoid colon and ? in the sigmoid colon. Biopsies we re taken with a cold ? forceps for histology. Impression: ?- Congested, e rythematous, eroded and ? friable ( with contact bleeding) ? mucosa in the rectum, in the ? recto-sig moid colon and in the ? sigmoid c olon. Biopsied. ? - Persist ent symptoms despite ? appropria te treatment for C. ? Difficile suggests that IBD (UC) is ? the louisa ant factor at this time. Recommendation: ?- Await patholog y results. ? - Initiat e Rx with IV steroids. ? - continu e po vancomycin. ? - continu e to monitor stool output. Procedure Code(s): ?? --- Professional - -- ? 26784, Si gmoidoscopy, flexible; with ? biopsy, s marcos or multiple Diagnosis Code(s): ?? --- Professional - -- ? K62.89, O ther specified diseases of ? anus and rectum ? K63.89, O ther specified diseases of ? intestine ? K62.5, He morrhage of anus and rectum ? K92.2, Ga strointestinal hemorrhage, ? unspecifi ed ? R10.84, G eneralized abdominal pain ? R19.7, Di arrhea, unspecified ? K51.00, U lcerative (chronic) ? pancoliti s without complications ? R93.3, Ab normal findings on ? diagnosti c imaging of other parts of ? digestive tract CPT copyright 2014 [employer]. All rights reserved. The codes documented in this report are preliminary and upon sample room supervisor review may be revised to meet current compliance requirements. Eusebio Mcmanus MD 07/28/2016 2:37:39 PM This document has been electronically si gned. Number of Addenda: 0 Note Initiated On: 07/28/2016 1:40 PM ? Endoscopy Report Procedure Note Eusebio Mcmanus MD - 07/28/2016Format ting of this note might be different from the original. Patient Name: Idania Moran Procedure Date: 07/28/2016 1:40 PM Date of : 1975 Admit Type: Outpatient Age: 41 Gender: Female Note Status: Finalized Attending MD: Eusebio Mcmanus MD Procedure: Flexible Sigmoidoscopy Indications: Generalized abdominal pain, Diarrhea, Abnormal CT of the GI tract, Disease activity assessment of chronic ulcerative pancolitis Providers: Eusebio Mcmanus MD, Kerry Warren Referring MD: Basia Castillo Medicines: Fentanyl 100 micrograms IV, M idazolam 3 mg IV Complications: No immediate complication s. Procedure: After obtaining informed cons ent, the scope was passed under direct vision. The [id number] was introduced through the anus and advanced to the sigmoid colon. The flexible sigmoidoscopy was accomplished without difficulty. The patient tolerated the procedure well. The quality of the bowel preparation was adequate. Findings: A diffuse area of moderately congested, erythematous, eroded and friable (with contact bleedi ng) mucosa was found in the rectum, in the recto-sigmo id colon and in the sigmoid colon. Biopsies were pepper en with a cold forceps for histology. Impression: - Congested, erythematous, e roded and friable (with contact bleeding) mucosa in the rectum, in the recto-sigmoid colon and in the sigmoid colon. Biopsied. - Persistent symptoms despite appropriate treatment for C. Difficile suggests that IBD (UC) is the dominant factor at this time. Recommendation: - Await pathology result s. - Initiate Rx with IV steroids. - continue po vancomycin. - continue to monitor stool output. Procedure Code(s): --- Professional --- [address], Sigmoidoscopy, flexible; with biopsy, single or multiple Diagnosis Code(s): --- Professional --- K62.89, Other specified diseases of anus and rectum K63.89, Other specified diseases of intestine K62.5, Hemorrhage of anus and rectum K92.2, Gastrointestinal hemorrhage, unspecified R10.84, Generalized abdominal pain R19.7, Diarrhea, unspecified K51.00, Ulcerative (chronic) pancolitis without complications R93.3, Abnormal findings on diagnostic imaging of other parts of digestive tract CPT copyright 2014 [employer]. All rights reserved. The codes documented in this report are preliminary and upon sample room supervisor review may be revised to meet current compliance requirements. Eusebio Mcmanus MD 07/28/2016 2:37:39 PM This document has been electronically si gned. Number of Addenda: 0 Note Initiated On: 07/28/2016 1:40 PM Endoscopy Report Suzan Hernandez LEAD RIDER, IT ARCHITECTURE CONSULTANT PN GI PROCEDURE ORDERAB LES Performing Organization Address [facility]/ZIP Code Phon e Number GI (PROVATION) GI (PROVATION) [place] XR Abd Flat And Upright (07/28/2016 11:55 AM CREATIVE SERVICES PRODUCER) Anatomical Region Laterality Modality Abdomen Computed Radiography Specimen (Source) Anatomical Collection Method Collection Time Re ceived Time Location / / Volume Laterality 07/28/2016 11:40 AM CREATIVE SERVICES PRODUCER Narrative 07/28/2016 11:59 AM CREATIVE SERVICES PRODUCER COMPARISON: ??07/26/2016 FINDINGS: ??Two views were obtained. Air -fluid levels noted in the right midabdomen, favored to be within the right colon. No gas-filled dilated loops of small bowel. No free air. Procedure Note Jeff Strickland MD - 07/28/2016Format ting of this note might be different from the original. COMPARISON: 07/26/2016 FINDINGS: Two views were obtained. Air-f luid levels noted in the right midabdomen, favored to be within the right colon. No gas-filled dilated loops of small bowel. No free air. Suzan Hernandez APRN, IT ARCHITECTURE CONSULTANT RAD GD (ABNORMAL) Potassium (07/28/2016 7:27 AM CREATIVE SERVICES PRODUCER) athologist Signature Potassium 3.4 (L) 3.5 - 5.2 PN SOFT mmol/L Specimen Anatomical Collection Method Collection Time Receive d Time (Source) Location / / Volume Laterality 07/28/2016 7:27 AM 7 8:24 CREATIVE SERVICES PRODUCER AM CREATIVE SERVICES PRODUCER Narrative PN SOFT - 07/28/2016 8:49 AM CREATIVE SERVICES PRODUCER Performed at [facility], [address] [place] [address] CLIA number [id number] Asia Foreman MD LAB_1 Performing Organization Address [facility] Phon e Number PN SOFT [facility] [place] [address] [phone] (ABNORMAL) Complete Blood Count-No Diff - Every AM (07/28/2016 7:27 AM CREATIVE SERVICES PRODUCER) [facility] Method Time Signature White Blood Cell 15.2 (H) 3.8 - 11.0 PN SOFT Count k/cmm Red Blood Cell 4.06 3.70 - PN SOFT Count 5.20 m/cmm Hemoglobin 12.1 11.8 - PN SOFT 15.5 g/dL Hematocrit 36.7 35.0 - PN SOFT 46.0 % Mean Corpuscular 90.4 80.0 - PN SOFT Volume 100.0 fL RDW 13.3 11.0 - PN SOFT 15.0 % Platelet Count 580 (H) 140 - 450 PN SOFT k/cmm Specimen Anatomical Collection Method Collection Time Receive d Time (Source) Location / / Volume Laterality 07/28/2016 7:27 AM 7 8:24 CREATIVE SERVICES PRODUCER AM CREATIVE SERVICES PRODUCER Narrative PN SOFT - 07/28/2016 8:30 AM CREATIVE SERVICES PRODUCER Performed at [facility], [facility] [place] [address] CLIA number [id number] Asia Foreman MD LAB_1 Performing Organization Address City/State/ZIP Code Phon e Number PN SOFT [address] Pathology Report (07/28/2016 6:00 AM CREATIVE SERVICES PRODUCER) [facility] gist Method Time Signature Path: FINAL SURGICAL PATHOLOGY REPORT PN SOFT Pathology #: [id number] ?Date Obtained: 07/28/2016 ? Date Received: 07/28/2016 DIAGNOSIS: Rectosigmoid colon, biopsy: - Moderate chronic active colitis. - Negative for dysplasia. ?BEBE IVORY MD ? (electronic signatur e) ? 07/31/2016 ??15:5 7 CLINICAL IMPRESSION: Ulcerative colitis ORGAN/TISSUE SITE: Rectosigmoid colon biopsy GROSS DESCRIPTION: Specimen is labeled rectal sigmoid colon and consists of multiple dawn tissue fragments ranging from less than 0.1 cm to 0.2 c m in greatest dimension. ??The tissue is filtered and submitted in one block. ? WEYAL MICROSCOPIC DESCRIPTION: Microscopic examination performed. Performed at [address] [address] Specimen Anatomical Collection Method Collection Time Receive d Time (Source) Location / / Volume Laterality COLON STRUCTURE / 07/28/2016 6:00 AM 08/2016 6:00 Unknown CREATIVE SERVICES PRODUCER AM CREATIVE SERVICES PRODUCER Suzan Hernandez APRN, IT ARCHITECTURE CONSULTANT LAB_1 Performing Organization Address [facility] Phon e Number PN SOFT [address] [place] [address] Potassium (07/27/2016 1:35 PM CREATIVE SERVICES PRODUCER) athologist Signature Potassium 3.9 3.5 - 5.2 PN SOFT mmol/L Specimen Anatomical Collection Method Collection Time Receive d Time (Source) Location / / Volume Laterality 07/27/2016 1:35 PM 7 1:39 CREATIVE SERVICES PRODUCER PM CREATIVE SERVICES PRODUCER Narrative PN SOFT - 07/27/2016 1:57 PM CREATIVE SERVICES PRODUCER Performed at [address] [address] CLIA number [id number] Asia Foreman MD LAB_1 Performing Organization Address [facility] Phon e Number PN SOFT [address] [place] [address] Magnesium (07/27/2016 7:10 AM CREATIVE SERVICES PRODUCER) athologist Signature Magnesium 1.9 1.6 - 2.6 PN SOFT mg/dL Specimen Anatomical Collection Method Collection Time Receive d Time (Source) Location / / Volume Laterality 07/27/2016 7:10 AM 7 7:45 CREATIVE SERVICES PRODUCER AM CREATIVE SERVICES PRODUCER Narrative PN SOFT - 07/27/2016 8:24 AM CREATIVE SERVICES PRODUCER Performed at [address] [address] CLIA number [id number] Asia Foreman MD LAB_1 Performing Organization Address [facility] Phon e Number PN SOFT [address] [place] [address] Potassium (07/27/2016 7:10 AM CREATIVE SERVICES PRODUCER) P athologist Signature Potassium 3.6 3.5 - 5.2 PN SOFT mmol/L Specimen Anatomical Collection Method Collection Time Receive d Time (Source) Location / / Volume Laterality 07/27/2016 7:10 AM 7 7:45 CREATIVE SERVICES PRODUCER AM CREATIVE SERVICES PRODUCER Narrative PN SOFT - 07/27/2016 8:24 AM CREATIVE SERVICES PRODUCER Performed at [address] [address] CLIA number [id number] Asia Foreman MD LAB_1 Performing Organization Address [facility] Phon e Number PN SOFT [address] [place] [address] (ABNORMAL) Complete Blood Count-No Diff - Every AM (07/27/2016 7:10 AM CREATIVE SERVICES PRODUCER) Patholo gist Method Time Signature White Blood Cell 14.1 (H) 3.8 - 11.0 PN SOFT Count k/cmm Red Blood Cell 4.06 3.70 - PN SOFT Count 5.20 m/cmm Hemoglobin 12.1 11.8 - PN SOFT 15.5 g/dL Hematocrit 36.7 35.0 - PN SOFT 46.0 % Mean Corpuscular 90.4 80.0 - PN SOFT Volume 100.0 fL RDW 13.1 11.0 - PN SOFT 15.0 % Platelet Count 537 (H) 140 - 450 PN SOFT k/cmm Specimen Anatomical Collection Method Collection Time Receive d Time (Source) Location / / Volume Laterality 07/27/2016 7:10 AM 7 7:45 CREATIVE SERVICES PRODUCER AM CREATIVE SERVICES PRODUCER Narrative PN SOFT - 07/27/2016 7:55 AM CREATIVE SERVICES PRODUCER Performed at [address] [address] CLIA number [id number] Asia Foreman MD LAB_1 Performing Organization Address [facility] Phon e Number PN SOFT [address] [place] [address] Potassium (07/26/2016 4:55 PM CREATIVE SERVICES PRODUCER) P athologist Signature Potassium 3.7 3.5 - 5.2 PN SOFT mmol/L Specimen Anatomical Collection Method Collection Time Receive d Time (Source) Location / / Volume Laterality 07/26/2016 4:55 PM 7 5:30 CREATIVE SERVICES PRODUCER PM CREATIVE SERVICES PRODUCER Narrative PN SOFT - 07/26/2016 5:49 PM CREATIVE SERVICES PRODUCER Performed at [address] [address] CLIA number [id number] Asia Foreman MD LAB_1 Performing Organization Address [facility] Phon e Number PN SOFT [address] [place] [address] MRSA Screen Culture (07/26/2016 4:06 PM CREATIVE SERVICES PRODUCER) [facility] Method Time Signature Source Nares PN SOFT Site PN SOFT Culture Mrsa No Methicillin PN SOFT Screen Resistant Staph aureus Isolated Specimen (Source) Anatomical Collection Method Collection Time Re ceived Time Location / / Volume Laterality 07/26/2016 4:06 PM CREATIVE SERVICES PRODUCER Narrative PN SOFT - 07/27/2016 4:51 PM CREATIVE SERVICES PRODUCER Performed at [address] [address], CLIA Number [id number] Asia Foreman MD LAB_1 Performing Organization Address [facility] Phon e Number PN SOFT [address] [place] [address] Hepatitis B Valeria, Quantitative (07/26/2016 2:23 PM CREATIVE SERVICES PRODUCER) [facility] Method Time Signature Hep B Surf Ab Reactive Nonreactive PN SOFT Hep B Ab Quant >1,000 mIU/mL PN SOFT Specimen Anatomical Collection Method Collection Time Receive d Time (Source) Location / / Volume Laterality 07/26/2016 2:23 PM 7 2:29 CREATIVE SERVICES PRODUCER PM CREATIVE SERVICES PRODUCER Narrative PN SOFT - 07/26/2016 3:14 PM CREATIVE SERVICES PRODUCER Performed at [address] [address] CLIA number [id number] Suzan Hernandez APRN, IT ARCHITECTURE CONSULTANT LAB_1 Performing Organization Address City/State/ZIP Code Phon e Number PN SOFT [address] [place] [address] Thiopurine Methyltransferase, RBC (07/26/2016 2:23 PM CREATIVE SERVICES PRODUCER) [facility] Method Time Signature Thiopurine 24.2 24.0 - PN SOFT Methyltransferase 44.0 U/mL Comment: INTERPRETIVE INFORMATION: Thiopurine Met hyltransferase, RBC Normal TPMT activity: 24.0-44.0 U/mL................Individual s are predicted to be at low risk of bone marrow toxicity ( myelosuppression) as a consequence of standard thiopurine therapy; no dose adjustment is recommended. Intermediate TPMT activity: 17.0-23.9 U/mL................Individual s are predicted to be at intermediate risk of bone marrow t oxicity (myelosuppression) as a consequence of s tandard thiopurine therapy; a dose reduction and therapeuti c drug management is recommended. Low TPMT activity: less than 17.0 U/mL...........Individual s are predicted to be at high risk of bone marrow toxicity (myelosuppression) as a consequence of standard thiopurine dosing. It is recommended to avoid the use of thiopuri ne drugs. High TPMT activity: greater than 44.0 U/mL........Individual s are not predicted to be at risk for bone marrow toxicity ( myelosuppression) as a consequence of standard thiopurine dosing, but may be at risk for therapeutic failure due to e xcessive inactivation of thiopurine drugs. Indivi duals may require higher than the normal standard dose. Th erapeutic drug management is recommended. The TPMT, RBC assay is used as a screen to detect individuals with low and intermediate TP MT activity who may be at risk for myelosuppression when exp osed to standard doses of thiopurines, including azathiop rine (Imuran) and 6-mercaptopurine (Purinethol). TPMT is t he primary metabolic route for inactivation of thio purine drugs in the bone marrow. When TPMT activity is low, it is predicted that proportionately more 6-mercaptopuri ne can be converted into the cytotoxic 6-thioguanine nucleot ides that accumulate in the bone marrow causing ex cessive toxicity. The activity of TPMT is measured by the nanomoles of 6-methylmercaptopurine (inactive metabol ite) produced per 1 mL of packed red blood cells, (U/mL). TPMT phenotype testing does not replace the need for clinical monitoring of patients treated with thiopurine drugs. Genotype for TPMT cannot be infer red from TPMT activity (phenotype). Phenotype testing should not be requested for patients currently treated with thiopurine drugs. Current TPMT phenotype may not re flect future TPMT phenotype, particularly in patients who received blood transfusion within 30-60 days of testing . ??TPMT enzyme activity can be inhibited by several laith gs such as: naproxen (Aleve), ibuprofen (Advil, Motr in), ketoprofen (Orudis), furosemide (Lasix), sulfasalaz ine (Azulfidine), mesalamine (Asacol), olsalazine (Dipentu m), mefenamic acid (Ponstel), thiazide diuretics, and benzo ic acid inhibitors. TPMT inhibitors may contribute to falsel y low results; patients should abstain from these drugs for at least 48 hours prior to TPMT testing. Falsely low results may also occur as a result of inappropriate speci men handling and hemolysis. Test developed and characteristics deter mined by [employer] See Compliance Statement B : [email or web address] Performed by [employer] [address] [place] [id number] [email or web address], Romulo Pritchett MD - Lab . Director Specimen Anatomical Collection Method Collection Time Receive d Time (Source) Location / / Volume Laterality 07/26/2016 2:23 PM 7 2:29 CREATIVE SERVICES PRODUCER PM CREATIVE SERVICES PRODUCER Narrative DENISE MARIA - 08/01/2016 4:41 PM CREATIVE SERVICES PRODUCER Performed at [facility] [address] [place] [address] CLIA number [id number] Suzan Hernandez LEAD RIDER, IT ARCHITECTURE CONSULTANT LAB_1 Performing Organization Address City/State/ZIP Code Phon e Number PN SOFT [address] [place] [address] Hepatitis B Surf Ag (07/26/2016 2:23 PM CREATIVE SERVICES PRODUCER) [facility] gist Method Time Signature Hep B Surf Ag Nonreactive Nonreactive PN SOFT Specimen Anatomical Collection Method Collection Time Receive d Time (Source) Location / / Volume Laterality 07/26/2016 2:23 PM 7 2:29 CREATIVE SERVICES PRODUCER PM CREATIVE SERVICES PRODUCER Narrative PN SOFT - 07/26/2016 3:14 PM CREATIVE SERVICES PRODUCER Performed at [facility], [facility] [place] [address] CLIA number [id number] Suzan Hernandez LEAD RIDER, IT ARCHITECTURE CONSULTANT LAB_1 Performing Organization Address City/State/ZIP Code Phon e Number PN SOFT [address] [place] [address] TSPOT Tuberculosis Test (07/26/2016 2:23 PM CREATIVE SERVICES PRODUCER) athologist Signature T SPOT TB Negative PN SOFT Comment: The test result is Negative if both (Britt el A minus Nil Control) and (Panel B minus Nil Control) are less than or equal to 4. This includes values less than zero. Note: Diagnosing or excluding tuberculos is disease, and assessing the probability of LTBI, requi res a combination of epidemiological, historical, medical and diagnostic findings that should be taken into account when i nterpreting TB test results. Refer to the most recent C DC guidance (http://www.cdc.gov/nchstp/tb) for detai led recommendations about diagnosing TB infection (including disease) and selecting persons for testing. Nil (Neg) Control Spot Count 0 P N SOFT Panel A Spot Count 0 PN SOFT Panel B Spot Count 0 PN SOFT Positive Control Spot Count >20 PN SOFT Specimen Anatomical Collection Method Collection Time Receive d Time (Source) Location / / Volume Laterality 07/26/2016 2:23 PM 7 2:28 CREATIVE SERVICES PRODUCER PM CREATIVE SERVICES PRODUCER Narrative PN SOFT - 07/28/2016 6:23 PM CREATIVE SERVICES PRODUCER Performed at [facility],[address] [facility] [place] [facility] [address] CLIA number [id number] Suzan Hernandez APRN, CNP LAB_1 Performing Organization Address City/State/ZIP Code Phon e Number PN SOFT [address] [place] [address] XR Portable Abd Flat (07/26/2016 1:05 PM CREATIVE SERVICES PRODUCER) Anatomical Region Laterality Modality Abdomen Computed Radiography Specimen (Source) Anatomical Collection Method Collection Time Re ceived Time Location / / Volume Laterality 07/26/2016 12:31 PM CREATIVE SERVICES PRODUCER Narrative 07/26/2016 1:11 PM CREATIVE SERVICES PRODUCER COMPARISON: ??CT abdomen and pelvis 07/25/2016, radiograph 02/15/2012 FINDINGS: ??One view was obtained. Nonob structive bowel gas pattern. There is fold thickening in the descending colon consistent with colitis. The cecum continues to measure approximately 6 cm in diamet er. No pneumatosis, portal venous gas, o r gross free peritoneal air. Mild convex left curvature of the lumbar spine with 6 lumbar type vertebrae. Procedure Note Geovani Coe MD - 07/26/2016 COMPARISON: CT abdomen and pelvis 2016, radiograph 02/15/2012 FINDINGS: One view was obtained. Nonobst ructive bowel gas pattern. There is fold thickening in the descending colon consistent with colitis. The cecum continues to measure approximately 6 cm in diameter. No pneumatosis, portal venous gas, or gross free periton eal air. Mild convex left curvature of the lumbar spine with 6 lumbar type vertebrae. Suzan Hernandez APRN, CNP RAD PORTABLE (ABNORMAL) Magnesium (07/26/2016 7:12 AM CREATIVE SERVICES PRODUCER) athologist Signature Magnesium 1.4 (L) 1.6 - 2.6 PN SOFT mg/dL Specimen Anatomical Collection Method Collection Time Receive d Time (Source) Location / / Volume Laterality 07/26/2016 7:12 AM 7 7:15 CREATIVE SERVICES PRODUCER AM CREATIVE SERVICES PRODUCER Narrative PN SOFT - 07/26/2016 11:04 AM CREATIVE SERVICES PRODUCER Performed at [facility], [address] [place] [address] CLIA number [id number] Asia Foreman MD LAB_1 Performing Organization Address [facility] Phon e Number PN SOFT [address] [place] [address] Anion Gap (07/26/2016 7:12 AM CREATIVE SERVICES PRODUCER) athologist Signature ANION GAP 7 0 - 16 mEq/L PN SOFT Specimen Anatomical Collection Method Collection Time Receive d Time (Source) Location / / Volume Laterality 07/26/2016 7:12 AM 7 7:15 CREATIVE SERVICES PRODUCER AM CREATIVE SERVICES PRODUCER Narrative PN SOFT - 07/26/2016 8:00 AM CREATIVE SERVICES PRODUCER Performed at [facility] [address] [place] [address] CLIA number [id number] Asia Foreamn MD LAB_1 Performing Organization Address [facility] e Number PN SOFT [address] [place] [address] (ABNORMAL) Basic Metabolic Panel (07/26/2016 7:12 AM CREATIVE SERVICES PRODUCER) athologist Signature Creatinine Serum 0.77 0.55 - PN SOFT 1.02 mg/dL Lab Glucose 94 70 - 100 PN SOFT mg/dL Comment: The stated glucose range is for the fast ing state. Non-fasting glucose range is 70-180 mg/d L CO2 24 22 - 31 mmol/L PN SOFT Chloride 104 98 - 109 mmol/L PN SOFT Potassium 3.3 (L) 3.5 - 5.2 mmol/L PN SOFT Sodium 135 (L) 136 - 145 mmol/L PN SOFT Blood Urea Nitrogen <10 9 - 26 mg/dL PN SOFT Calcium 7.7 (L) 8.4 - 10.2 mg/dL PN SOFT Est GFR Am >60 >60 mL/min/1.73m2 PN SOFT Est GFR Non-Afr Am >60 >60 mL/min/1.73m2 PN SOFT Comment: Normal>60, moderate decrease 30 - 59, se nay decrease 15 - 29, renal failure <15 mL/min/1.73 m2 NOTE: ??Choose the eGFR result above kenia ropriate for the race of the patient. Specimen Anatomical Collection Method Collection Time Receive d Time (Source) Location / / Volume Laterality 07/26/2016 7:12 AM 7 7:15 CREATIVE SERVICES PRODUCER AM CREATIVE SERVICES PRODUCER Narrative PN SOFT - 07/26/2016 8:00 AM CREATIVE SERVICES PRODUCER Performed at [address] [address] CLIA number [id number] sAia Foreman MD LAB_1 Performing Organization Address City/[facility] Phon e Number PN SOFT [address] [place] [address] (ABNORMAL) Complete Blood Count-No Diff - Every AM (07/26/2016 7:12 AM CREATIVE SERVICES PRODUCER) Patholo gist Method Time Signature White Blood Cell 18.8 (H) 3.8 - 11.0 PN SOFT Count k/cmm Red Blood Cell 3.93 3.70 - PN SOFT Count 5.20 m/cmm Hemoglobin 11.8 11.8 - PN SOFT 15.5 g/dL Hematocrit 35.3 35.0 - PN SOFT 46.0 % Mean Corpuscular 89.8 80.0 - PN SOFT Volume 100.0 fL RDW 13.0 11.0 - PN SOFT 15.0 % Platelet Count 523 (H) 140 - 450 PN SOFT k/cmm Specimen Anatomical Collection Method Collection Time Receive d Time (Source) Location / / Volume Laterality 07/26/2016 7:12 AM 7 7:15 CREATIVE SERVICES PRODUCER AM CREATIVE SERVICES PRODUCER Narrative PN SOFT - 07/26/2016 7:20 AM CREATIVE SERVICES PRODUCER Performed at [address] [address] CLIA number [id number] Asia Foreman MD LAB_1 Performing Organization Address [facility] Phon e Number PN SOFT [address] [place] [address] (ABNORMAL) Potassium (07/26/2016 12:30 AM CREATIVE SERVICES PRODUCER) P athologist Signature Potassium 3.3 (L) 3.5 - 5.2 PN SOFT mmol/L Specimen Anatomical Collection Method Collection Time Receive d Time (Source) Location / / Volume Laterality 07/26/2016 12:30 07/26/2016 1:02 AM CREATIVE SERVICES PRODUCER AM CREATIVE SERVICES PRODUCER Narrative PN SOFT - 07/26/2016 1:16 AM CREATIVE SERVICES PRODUCER Performed at [facility] [address] [place] [address] CLIA number [id number] Asia Foreman MD LAB_1 Performing Organization Address [facility] Phon e Number PN SOFT [address] [place] [address] MRSA Culture (07/25/2016 5:20 PM CREATIVE SERVICES PRODUCER) [facility] gist Method Time Signature Source Nares PN SOFT Site PN SOFT Culture Mrsa No Methicillin PN SOFT Screen Resistant Staph aureus Isolated Specimen (Source) Anatomical Collection Method Collection Time Re ceived Time Location / / Volume Laterality 07/25/2016 5:20 PM CREATIVE SERVICES PRODUCER Narrative PN SOFT - 07/26/2016 5:19 PM CREATIVE SERVICES PRODUCER Performed at [address] [address], CLIA Number [id number] Asia Foreman MD LAB_1 Performing Organization Address [facility] Phon e Number PN SOFT [address] [place] [address] CT Abd Pelvis W IV Cont Only (07/25/2016 12:09 PM CREATIVE SERVICES PRODUCER) Anatomical Region Laterality Modality Abdomen, Pelvis Computed Tomography Specimen (Source) Anatomical Collection Method Collection Time Re ceived Time Location / / Volume Laterality 07/25/2016 11:55 AM CREATIVE SERVICES PRODUCER Impressions 07/25/2016 12:23 PM CREATIVE SERVICES PRODUCER IMPRESSION: ?? 1. Findings compatible with colitis may be secondary to the patient's history of ulcerative colitis although infectious colitis including pseudomembranous colitis could have a similar appearance. The di stribution would be atypical for ischemi c colitis. There is slightly greater involvement of the distal descending and sigmoid colon than on the prior study. Narrative 07/25/2016 12:23 PM CREATIVE SERVICES PRODUCER COMPARISON: ??07/19/2016. TECHNIQUE: ??Images were obtained throug h the abdomen and pelvis following the administration of ??75 mL IOPAMIDOL 61 % IV SOLN contrast. FINDINGS: The visualized lung bases are clear. The visualized distal esophagus is unremarkable. The patient is status post cholecystectomy. The liver, spleen, pancreas, adrenal glands and kidneys are normal. Diffuse wall thickening involving nearly the entire colon with some sparing of the cecum, sigmoid colon and rectum is again noted. There is slightly greater involvement of the distal descending and sigm oid colon than on the prior study. Mild pericolonic inflammatory stranding is again noted. No pneumatosis or free air. No hernia or bowel obstruction. There is trace free fluid in the pelvis. No significant adenopathy. No suspicious osseous lesions are identified on review of bone windows. Procedure Note Sukhi Michelle MD - 07/25/2016 COMPARISON: 07/19/2016. TECHNIQUE: Images were obtained through the abdomen and pelvis following the administration of 75 mL IOPAMIDOL 61 % IV SOLN contrast. FINDINGS: The visualized lung bases are clear. The visualized distal esophagus is unremarkable. The patient is status post cholecystectomy. The liver, spleen, pancreas, adrenal glands and kidneys are normal. Diffuse wall thickening involving nearly the entire colon with some sparing of the cecum, sigmoid colon and rectum is again noted. There is slightly greater involvement of the distal descending and sigmoid colon than on the prior study. Mild pericoloni c inflammatory stranding is again noted. No pneumatosis or free air. No hernia or bowel obstruction. There is trace free fluid in the pelvis. No significant adenopathy. No suspicious osseous lesions are identified on review of bone windows. IMPRESSION IMPRESSION: 1. Findings compatible with colitis may be secondary to the patient's history of ulcerative colitis although infectious colitis including pseudomembranous colitis could have a similar appearance. The distribution would be atypical for ischemic colitis. There is slightly greater involvement of the distal descending and sigmoid colon than on the prior study. Milton Chew MD RAD CT (ABNORMAL) C.Difficile Toxin,Molecular Detection, (07/25/2016 11:13 AM CREATIVE SERVICES PRODUCER) [facility] Method Time Signature Clostridium Positive (A) PN SOFT difficile PCR Comment: Reference Range: ??Negative Method description (GeneXpert): Rapid, real-time PCR assay to detect tcd B (the Clostridium difficile toxin B gene) in human liquid or soft stools. Specimen Anatomical Collection Method Collection Time Receive d Time (Source) Location / / Volume Laterality 07/25/2016 11:13 07/25/2016 AM CREATIVE SERVICES PRODUCER 11:26 AM CREATIVE SERVICES PRODUCER Narrative PN SOFT - 07/25/2016 12:25 PM CREATIVE SERVICES PRODUCER Performed at [address] [address] CLIA number [id number] .Positive CDOPC posada d to and read back by Lucy Lanier RN EC,.07/25/2016,12:32, by [facility] Milton Chew MD LAB_1 Performing Organization Address [facility] Phon e Number PN SOFT [address] [place] [address] (ABNORMAL) Differential (07/25/2016 9:45 AM CREATIVE SERVICES PRODUCER) [facility] Method Time Signature Absolute 12.4 (H) 1.8 - 8.0 PN SOFT Neutrophils k/cmm Absolute 3.0 1.1 - 4.0 PN SOFT Lymphocytes k/cmm Absolute Monocytes 0.2 0.2 - 0.8 PN SOFT k/cmm Absolute 0.0 0.0 - 0.5 PN SOFT Eosinophils k/cmm Absolute Basophils 0.2 0.0 - 0.2 PN SOFT k/cmm Platelet Estimate Increased PN SOFT Toxic Granulation Slight PN SOFT Absolute 0.7 (A) 0 k/cmm PN SOFT Metamyelocytes Absolute 0.3 (A) 0 k/cmm PN SOFT Myelocytes Specimen Anatomical Collection Method Collection Time Receive d Time (Source) Location / / Volume Laterality 07/25/2016 9:45 AM 7 9:56 CREATIVE SERVICES PRODUCER AM CREATIVE SERVICES PRODUCER Narrative PN SOFT - 07/25/2016 10:28 AM CREATIVE SERVICES PRODUCER Performed at [address] [address] CLIA number [id number] Milton Chew MD LAB_1 Performing Organization Address [facility] Phon e Number PN SOFT [address] [place] [address] [phone] (ABNORMAL) CBC w/Diff (07/25/2016 9:45 AM CREATIVE SERVICES PRODUCER) [facility] Method Time Signature White Blood Cell 16.7 (H) 3.8 - 11.0 PN SOFT Count k/cmm Red Blood Cell 4.46 3.70 - PN SOFT Count 5.20 m/cmm Hemoglobin 13.6 11.8 - PN SOFT 15.5 g/dL Hematocrit 39.5 35.0 - PN SOFT 46.0 % Mean Corpuscular 88.6 80.0 - PN SOFT Volume 100.0 fL RDW 12.9 11.0 - PN SOFT 15.0 % Platelet Count 611 (H) 140 - 450 PN SOFT k/cmm Specimen Anatomical Collection Method Collection Time Receive d Time (Source) Location / / Volume Laterality 07/25/2016 9:45 AM 7 9:56 CREATIVE SERVICES PRODUCER AM CREATIVE SERVICES PRODUCER Narrative PN SOFT - 07/25/2016 10:01 AM CREATIVE SERVICES PRODUCER Performed at [address] [address] CLIA number [id number] Milton Chew MD LAB_1 Performing Organization Address [facility] e Number PN SOFT [address] [place] [address] Test Screen Blood (07/25/2016 9:44 AM CREATIVE SERVICES PRODUCER) athologist Signature Serum Negative PN SOFT Test Comment: Consider heterophile antibody interferen ce in women of child-bearing age if serum HCG is persis tently elevated to a mild degree over a period of several wee ks or months. Confirmation with a urine test or serum HCG by an alternate test method may be helpful. He terophile antibodies occur in 1% of the general population an d may interfere with any serum immunoassay ??(many common pro tein, hormone, and tumor marker tests). Specimen Anatomical Collection Method Collection Time Receive d Time (Source) Location / / Volume Laterality 07/25/2016 9:44 AM 7 9:56 CREATIVE SERVICES PRODUCER AM CREATIVE SERVICES PRODUCER Narrative PN SOFT - 07/25/2016 10:09 AM CREATIVE SERVICES PRODUCER Performed at [address] [address] CLIA number [id number] Milton Chew MD LAB_1 Performing Organization Address [facility] Phon e Number PN SOFT [address] [place] [address] Anion Gap (07/25/2016 9:44 AM CREATIVE SERVICES PRODUCER) athologist Signature ANION GAP 10 0 - 16 mEq/L PN SOFT Specimen Anatomical Collection Method Collection Time Receive d Time (Source) Location / / Volume Laterality 07/25/2016 9:44 AM 7 9:56 CREATIVE SERVICES PRODUCER AM CREATIVE SERVICES PRODUCER Narrative PN SOFT - 07/25/2016 10:18 AM CREATIVE SERVICES PRODUCER Performed at [facility] [address] [place] [address] CLIA number [id number] Milton Chew MD LAB_1 Performing Organization Address City/State/ZIP Code Phon e Number PN SOFT [address] [place] [address] [phone] (ABNORMAL) Basic Metabolic Panel (07/25/2016 9:44 AM CREATIVE SERVICES PRODUCER) athologist Signature Creatinine 0.78 0.55 - PN SOFT Serum 1.02 mg/dL Lab Glucose 124 (H) 70 - 100 PN SOFT mg/dL Comment: The stated glucose range is for the fast ing state. Non-fasting glucose range is 70-180 mg/d L CO2 24 22 - 31 mmol/L PN SOFT Chloride 101 98 - 109 mmol/L PN SOFT Potassium 3.5 3.5 - 5.2 mmol/L PN SOFT Sodium 135 (L) 136 - 145 mmol/L PN SOFT Blood Urea Nitrogen 15 9 - 26 mg/dL PN SOFT Calcium 8.2 (L) 8.4 - 10.2 mg/dL PN SOFT Est GFR Am >60 >60 mL/min/1.73m2 PN SOFT Est GFR Non-Afr Am >60 >60 mL/min/1.73m2 PN SOFT Comment: Normal>60, moderate decrease 30 - 59, se nay decrease 15 - 29, renal failure <15 mL/min/1.73 m2 NOTE: ??Choose the eGFR result above kenia ropriate for the race of the patient. Specimen Anatomical Collection Method Collection Time Receive d Time (Source) Location / / Volume Laterality 07/25/2016 9:44 AM 7 9:56 CREATIVE SERVICES PRODUCER AM CREATIVE SERVICES PRODUCER Narrative PN SOFT - 07/25/2016 10:18 AM CREATIVE SERVICES PRODUCER Performed at [facility] [address] [place] [address] CLIA number [id number] Milton Chew MD LAB_1 Performing Organization Address [facility] Phon e Number PN SOFT [address] [place] [address] Draw & Hold - Inpatient Only: (07/25/2016 9:44 AM CREATIVE SERVICES PRODUCER) athologist Signature Draw And Hold REC'D PN SOFT Specimen Anatomical Collection Method Collection Time Receive d Time (Source) Location / / Volume Laterality 07/25/2016 9:44 AM 7 9:56 CREATIVE SERVICES PRODUCER AM CREATIVE SERVICES PRODUCER Narrative PN SOFT - 07/25/2016 10:10 AM CREATIVE SERVICES PRODUCER Performed at [address] [address] CLIA number [id number] Milton Chew MD PN BLOOD BANK ORDERS Performing Organization Address [facility] Phon e Number PN SOFT [address] [place] [address] Emergency Center Draw And Hold (07/25/2016 9:44 AM CREATIVE SERVICES PRODUCER) athologist Signature Emergency Drawn PN SOFT Center Draw And Hold Extra Lavender Drawn PN SOFT Top Drawn Extra PST Top Drawn PN SOFT Drawn Extra SST Top Drawn PN SOFT Drawn Specimen Anatomical Collection Method Collection Time Receive d Time (Source) Location / / Volume Laterality 07/25/2016 9:44 AM 7 9:56 CREATIVE SERVICES PRODUCER AM CREATIVE SERVICES PRODUCER Narrative PN SOFT - 07/25/2016 10:23 AM CREATIVE SERVICES PRODUCER Performed at [address] [address] CLIA number [id number] Milton Chew MD LAB_1 Performing Organization Address [facility] Phon e Number PN SOFT [address] [place] [address] documented in this encounter Visit Diagnoses Diagnosis Essential hypertension (HRC) - Primary Unspecified essential hypertension Ulcerative colitis with complication, un specified location (HRC) Hematochezia Blood in stool Lower abdominal pain Abdominal pain, other specified site C. difficile colitis Intestinal infection due to clostridium difficile Ulcerative rectosigmoiditis with rectal bleeding (HRC) HTN (hypertension) (HRC) Unspecified essential hypertension Triage Assessment Note - Eloy Santoyo RN - 07/25/2016 8:08 AM CST S: Abdominal Pain B: Patient reports approximately 1 month of abdominal nausea, vomiting, diarrhea. Seen here recently, attempted follow-up with GI but has not heard back from them. Reports history of colitis, and is going to be following up with GI for this concern. Overnight increasing abdominal pain and blood in stools. A: Reported fevers, nausea, vomiting, blood loose stools. Bilateral lower abdominal pain 02/01. R: Vitals. MD evaluation. TIVE SERVICES PRODUCER documented in this encounter Administered Medications Inactive Administered Medications - up to 3 most recent administrations Medication Order MAR Action Action Date Dose Rate Site 0.9% sodium chloride bolus 1,000 Started 07/25/2016 9:53 AM CREATIVE SERVICES PRODUCER 1, 000 mL mL 1,000 mL, Intravenous, Administer over 1 Hours, ONCE, On Sun07/25/16 at 0945, For 1 dose dicyclomine (BENTYL) capsule 10 mg Given 07/27/2016 4:40 PM CREATIVE SERVICES PRODUCER 10 mg 10 mg, Oral, QID PRN, Irritable Bowel, Starting on Sun07/27/16 at 1206, Until Sun07/30/16 at 1647 enoxaparin (LOVENOX) injection Given 07/28/2016 3:53 PM CREATIVE SERVICES PRODUCER 40 m g Abdominal Tissue 40 mg 40 mg, Subcutaneous, Q24H, First dose on Sun07/28/16 at 1600, Until Discontinued fentaNYL (SUBLIMAZE) injection 25 mcg Given 07/29/2016 10:15 AM CREATIVE SERVICES PRODUCER 25 mcg 25 mcg, Intravenous, Q2H PRN, Pain, Severe Pain (pain score 8-10), Starting on Sun07/28/16 at 1137, Until Sun07/30/16 at 1647, Caution: Look-alike, sound-alike medication. Given 07/29/2016 5:25 AM CREATIVE SERVICES PRODUCER 25 mcg Given 07/28/2016 4:36 PM CREATIVE SERVICES PRODUCER 25 mcg HYDROmorphone injectable 0.3-0.5 mg Given 07/28/2016 9:22 AM CREATIVE SERVICES PRODUCER 0.5 mg 0.3-0.5 mg, Intravenous, Q2H PRN, Other, Severe Pain (pain score 8-10), Starting on Sun07/25/16 at 1615, Until Sun07/28/16 at 1137, For Severe Pain (pain score 8-10) not controlled by oral opioids or if patient is unable to take PO. Do NOT administer at the same time as PO opioids. May administer 1 hour after PO opioid administration if needed. Given 07/28/2016 5:55 AM CREATIVE SERVICES PRODUCER 0.5 mg Given 07/28/2016 2:08 AM CREATIVE SERVICES PRODUCER 0.5 mg HYDROmorphone injectable 0.5-1 mg Given 07/25/2016 12:50 PM CREATIVE SERVICES PRODUCER 0.5 mg 0.5-1 mg, Intravenous, PRN, Pain, Starting on Sun07/25/16 at 0925, Until Sun07/25/16 at 1424, For 5 hours, Please notify physician if pt requires >2mg Given 07/25/2016 10:25 AM CREATIVE SERVICES PRODUCER 0.5 mg Given 07/25/2016 9:53 AM CREATIVE SERVICES PRODUCER 0.5 mg insulin lispro (humALOG) injection Given 07/29/2016 10:42 PM CREATIVE SERVICES PRODUCER 2 Units Right Arm vial Subcutaneous, 4 TIMES DAILY SLIDING SCALE, First dose on Sun07/29/16 at 2200, For Blood Glucose: 150 to 200 mg/dL give 1 unit 201 to 250 mg/dL give 2 units 251 to 300 mg/dL give 3 units 301 to 350 mg/dL give 4 units 351 to 400 mg/dL give 5 units Call MD for BGS>400 mg/dL. Call MD to consider adjusting sliding scale or meal-time insulin for two consecutive BGS>300 mg/dL. Recommend all patients on insulin should have orders for Hypoglycemia Management and Treatment - please order separately. iopamidol (ISOVUE-300) 61 % injection 75 mL Given 07/25/2016 12:06 PM CREATIVE SERVICES PRODUCER 75 mL 75 mL, Intravenous, ONCE, On Sun07/25/16 at 1230, For 1 dose, Radiology magnesium sulfate 2 g in dextrose 5 % 50 mL Started 07/26/2016 9:2 3 PM CREATIVE SERVICES PRODUCER 2 g IVPB 2 g, Intravenous, Administer over 30 Minutes, Q6H (NON-STND), First dose (after last reorder) on Sun07/26/16 at 1230, For 2 doses, Give 2 g EVERY 6 HOURS X2 doses when condition is met. RN to NOTIFY Pharmacy to place scheduled medication order IF CONDITION is met. Started 07/26/2016 2:26 PM CREATIVE SERVICES PRODUCER 2 g magnesium sulfate 2 g in dextrose 5 % 50 mL Started 07/27/2016 9:5 6 AM CREATIVE SERVICES PRODUCER 2 g IVPB 2 g, Intravenous, Administer over 30 Minutes, ONCE, On Tamela 07/27/16 at 1000, For 1 dose, GIVE ONCE if condition is met. Mg=1.9 magnesium sulfate 2 g in dextrose 5 % 50 mL Started 07/29/2016 1:4 9 PM CREATIVE SERVICES PRODUCER 2 g IVPB 2 g, Intravenous, Administer over 30 Minutes, ONCE, On 07/29/16 at 1145, For 1 dose, GIVE ONCE if condition is met. RN to NOTIFY Pharmacy to place scheduled medication order IF CONDITION is met mesalamine (LIALDA) enteric coated tablet 4.8 Given 12:20 PM CREATIVE SERVICES PRODUCER 4.8 g g 4.8 g, Oral, QDAY WITH MEAL, First dose on Sun07/30/16 at 1100, Until Discontinued, Tablet should be swallowed whole methylPREDNISolone sodium succinate Given 07/30/2016 8:30 AM CREATIVE SERVICES PRODUCER 20 mg (SOLU-medrol) injection 20 mg 20 mg, Intravenous, Q8H, First dose on Sun07/28/16 at 1500, Until Discontinued, Recommend blood glucose testing QID after initiation of steroids. Given 07/30/2016 12:20 AM CREATIVE SERVICES PRODUCER 20 mg Given 07/29/2016 3:50 PM CREATIVE SERVICES PRODUCER 20 mg metroNIDAZOLE (aka FLAGYL) 500mg in NaCl Started 07/25/2016 1:43 P M CREATIVE SERVICES PRODUCER 500 mg 0.9% 100 mL IVPB 500 mg, Intravenous, Administer over 60 Minutes, ONCE, On Sun07/25/16 at 1245, For 1 dose, Caution: Look-alike, sound-alike medication. metroNIDAZOLE (aka FLAGYL) 500mg in NaCl Started 07/28/2016 5:52 A M CREATIVE SERVICES PRODUCER 500 mg 0.9% 100 mL IVPB 500 mg, Intravenous, Administer over 60 Minutes, Q8H (NON-STND), First dose on Sun07/25/16 at 2100, Caution: Look-alike, sound-alike medication. Started 07/27/2016 10:20 PM CREATIVE SERVICES PRODUCER 500 mg Started 07/27/2016 1:38 PM CREATIVE SERVICES PRODUCER 500 mg midazolam (VERSED) injection 0.5-2 mg Given 07/28/2016 2:40 PM CREATIVE SERVICES PRODUCER 3 mg 0.5-2 mg, Intravenous, PRN, Sedation, Starting on Sun07/28/16 at 1417, Until Sun07/28/16 at 1444, Administer in 0.5-2 mg increments as directed by endoscopy procedure MD up to a total of 8 mg. multivitamin (THERAGRAN) tablet 1 Tab Given 07/30/2016 8:31 AM CREATIVE SERVICES PRODUCER 1 Tablet 1 Tablet, Oral, DAILY, First dose on Sun07/25/16 at 1645, Until Discontinued Given 07/29/2016 8:39 AM CREATIVE SERVICES PRODUCER 1 Tablet Given 07/27/2016 8:04 AM CREATIVE SERVICES PRODUCER 1 Tablet NaCl 0.9%-KCl 20 mEq/liter infusion Started 07/29/2016 3:50 PM CREATIVE SERVICES PRODUCER 75 mL/hr Intravenous, at 75 mL/hr, CONTINUOUS, Starting on Sun07/25/16 at 1645 New Bag Started 07/29/2016 1:22 AM CREATIVE SERVICES PRODUCER 75 mL/hr Started 07/28/2016 5:52 AM CREATIVE SERVICES PRODUCER 75 mL/hr norethindrone-eth estradiol Self Administered 07/30/2016 8:00 AM CREATIVE SERVICES PRODUCER 1 Tablet (NORINYL,ORTHONOVUM) 1-35 MG-MCG tablet 1 Tab 1 Tablet, Oral, DAILY, First dose on Sun07/26/16 at 0800, Patient must use own supply. Given 07/29/2016 8:00 AM CREATIVE SERVICES PRODUCER 1 Tablet Self Administered 07/26/2016 8:00 AM CREATIVE SERVICES PRODUCER 1 Tablet ondansetron (ZOFRAN) injection 4 mg Given 07/28/2016 5:54 AM CREATIVE SERVICES PRODUCER 4 mg 4 mg, Intravenous, Q4H PRN, Nausea, Vomiting, Starting on Sun07/25/16 at 1615, Until 07/30/16 at 1647 Given 07/28/2016 2:08 AM CREATIVE SERVICES PRODUCER 4 mg Given 07/27/2016 9:27 PM CREATIVE SERVICES PRODUCER 4 mg ondansetron (ZOFRAN-ODT) disintegrating tablet Given 0 07/28/2016 8:19 AM CREATIVE SERVICES PRODUCER 4 mg 4 mg 4 mg, Oral, Q8H PRN, Nausea, Starting on Sun07/25/16 at 1615, Until Sun07/30/16 at 1647, Do not swallow tablet whole. Allow to dissolve on the tongue without chewing. Use First if able to take PO potassium chloride (K-DARRION) packet 40 mEq Given 07/27/2016 9:56 AM CREATIVE SERVICES PRODUCER 40 mEq 40 mEq, Oral, ONCE, On Tamela 07/27/16 at 0930, For 1 dose, Recheck serum potassium 3 to 4 hours after replacement and repeat protocol if indicated. potassium chloride (KCL) 10 mEq, lidocaine Started 07/25 8:12 PM CREATIVE SERVICES PRODUCER 10 mEq 1% 2 mL in dextrose 5 % 100 mL IVPB 10 mEq, Intravenous, Administer over 60 Minutes, Q1H, First dose on Sun07/25/16 at 1830, For 2 doses, Recheck serum potassium 2 hours after completing replacement and repeat protocol as indicated. Started 07/25/2016 6:45 PM CREATIVE SERVICES PRODUCER 10 mEq potassium chloride (KCL) 10 mEq, lidocaine Started 07/26 4:24 AM CREATIVE SERVICES PRODUCER 10 mEq 1% 2 mL in dextrose 5 % 100 mL IVPB 10 mEq, Intravenous, Administer over 60 Minutes, Q1H, First dose on Sun07/26/16 at 0200, For 3 doses, Recheck serum potassium 2 hours after completing replacement and repeat protocol as indicated. Started 07/26/2016 3:24 AM CREATIVE SERVICES PRODUCER 10 mEq Started 07/26/2016 2:10 AM CREATIVE SERVICES PRODUCER 10 mEq potassium chloride (KCL) 10 mEq, lidocaine Started 07/26 11:30 AM CREATIVE SERVICES PRODUCER 10 mEq 1% 2 mL in dextrose 5 % 100 mL IVPB 10 mEq, Intravenous, Administer over 60 Minutes, Q1H, First dose on Sun07/26/16 at 0830, For 3 doses, Recheck serum potassium 2 hours after completing replacement and repeat protocol as indicated. Started 07/26/2016 10:20 AM CREATIVE SERVICES PRODUCER 10 mEq Started 07/26/2016 9:01 AM CREATIVE SERVICES PRODUCER 10 mEq potassium chloride (KCL) 10 mEq, lidocaine Started 07/28 12:28 PM CREATIVE SERVICES PRODUCER 10 mEq 1% 2 mL in dextrose 5 % 100 mL IVPB 10 mEq, Intravenous, Administer over 60 Minutes, Q1H, First dose on Sun07/28/16 at 1030, For 3 doses, Recheck serum potassium 2 hours after completing replacement and repeat protocol as indicated. Started 07/28/2016 11:25 AM CREATIVE SERVICES PRODUCER 10 mEq potassium chloride (KCL) 10 mEq, lidocaine Started 07/28 3:47 PM CREATIVE SERVICES PRODUCER 10 mEq 1% 2 mL in dextrose 5 % 100 mL IVPB 10 mEq, Intravenous, Administer over 60 Minutes, ONCE, On Sun07/28/16 at 1315, For 1 dose prochlorPERAZINE (COMPAZINE) injection 1 0 mg Given 07/28/2016 9:36 PM CREATIVE SERVICES PRODUCER 10 mg 10 mg, Intravenous, Q6H PRN, Nausea, Vomiting, Starting on Sun07/28/16 at 0827, Until Sun07/30/16 at 1647, Try Zofran, then prochlorperazine, then promethazine for nausea/vomiting Caution: Look-alike, sound-alike medication. Given 07/28/2016 12:26 PM CREATIVE SERVICES PRODUCER 5 mg Given 07/28/2016 9:20 AM CREATIVE SERVICES PRODUCER 5 mg simethicone (GENASYME) oral liquid 40 mg Given 07/27/2016 12:34 PM CREATIVE SERVICES PRODUCER 40 mg 40 mg, Oral, QID PRN, Gas Pain, Starting on Tamela 07/27/16 at 1050, Until Sun07/30/16 at 1647 simethicone (MYLICON) chewable tablet 80 mg Given 07/28/2016 6:07 AM CREATIVE SERVICES PRODUCER 80 mg 80 mg, Oral, QID PRN, Gas Pain, Starting on Sun07/27/16 at 1206, Until Sun07/30/16 at 1647 Given 07/27/2016 9:27 PM CREATIVE SERVICES PRODUCER 80 mg sodium chloride 0.9% 0.9 % injection Given 07/25/2016 9:52 AM CREATIVE SERVICES PRODUCER 10 mL Starting on Sun07/25/16 at 0909, Until Sun07/25/16 at 0952, For 1 dose, Cat Chery : cabinet override sodium chloride 0.9% injection 10 mL Given 07/25/2016 12:30 PM CREATIVE SERVICES PRODUCER 10 mL 10 mL, Intravenous, ONCE, On Sun07/25/16 at 1230, For 1 dose, Radiology sodium chloride 0.9% injection 10-60 mL Given 07/30/2016 8:31 AM CREATIVE SERVICES PRODUCER 10 mL 10-60 mL, Intravenous, BID, First dose on Sun07/25/16 at 2000, Until Discontinued, For an INT flush, flush [...] the Vascular Access Device Users Guide. Given 07/29/2016 8:43 PM CREATIVE SERVICES PRODUCER 10 mL Given 07/26/2016 8:58 AM CREATIVE SERVICES PRODUCER 10 mL sodium chloride 0.9% injection 10-60 mL Given 07/30/2016 12:21 AM CREATIVE SERVICES PRODUCER 10 mL 10-60 mL, Intravenous, PRN, Line Patency, Line Care, Starting on Sun07/25/16 at 1935, Until Sun07/30/16 at 1647, For an INT flush, flush with at least 10 mL. For PICC (including Power Injectable PICC), flush with 10 mL. For Port-a-Cath, flush with a minimum of 10mL. For Castellon, flush with a minimum of 10 mL. For jugular, subclavian, femoral central lines, flush with a minimum 10 mL. For additional information about flushing processes, reference the Vascular Access Device Users Guide. Given 07/29/2016 5:54 PM CREATIVE SERVICES PRODUCER 10 mL Given 07/29/2016 3:50 PM CREATIVE SERVICES PRODUCER 10 mL sodium phosphate (FLEET) enema 1 Enema Given 07/28/2016 12:45 PM CREATIVE SERVICES PRODUCER 1 Enema 1 Enema, Rectal, ONCE PRN, Other, For Bowel Prep, Starting on Sun07/28/16 at 1224, Until Sun07/28/16 at 1245, For 1 dose, Administer 45 minutes prior to procedure, Pre-Procedure sodium phosphate (FLEET) enema 1 Enema Given 07/28/2016 1:27 PM CREATIVE SERVICES PRODUCER 1 Enema 1 Enema, Rectal, ONCE PRN, Constipation, Starting on Sun07/28/16 at 1323, Until Sun07/28/16 at 1327, For 1 dose temazepam (RESTORIL) capsule 15 mg Given 07/29/2016 10:42 PM CREATIVE SERVICES PRODUCER 15 mg 15 mg, Oral, HS PRN, Sleep, Starting on Sun07/25/16 at 1615, Until Sun07/30/16 at 1647 Given 07/28/2016 9:36 PM CREATIVE SERVICES PRODUCER 15 mg Given 07/27/2016 9:27 PM CREATIVE SERVICES PRODUCER 15 mg vancomycin (VANCOCIN) oral solution 125 mg Given 07/25/2016 1:44 PM CREATIVE SERVICES PRODUCER 125 mg 125 mg, Oral, ONCE, On Sun07/25/16 at 1300, For 1 dose, Refrigerated Product. vancomycin (VANCOCIN) oral solution 125 mg Given 07/25/2016 8:01 PM CREATIVE SERVICES PRODUCER 125 mg 125 mg, Oral, QID, First dose on Sun07/25/16 at 1630, Refrigerated Product. Given 07/25/2016 5:58 PM CREATIVE SERVICES PRODUCER 125 mg vancomycin (VANCOCIN) oral solution 250 mg Given 07/30/2016 11:33 AM CREATIVE SERVICES PRODUCER 250 mg 250 mg, Oral, QID, First dose (after last modification) on Sun07/26/16 at 0800, Refrigerated Product. Given 07/30/2016 8:32 AM CREATIVE SERVICES PRODUCER 250 mg Given 07/29/2016 8:43 PM CREATIVE SERVICES PRODUCER 250 mg documented in this encounter Active and Recently Administered Medications Times are shown in CREATIVE SERVICES PRODUCER. Scheduled Medication Order 07/28/2016 07/29/2016 07/30/2016 enoxaparin (LOVENOX) injection 40 mg (CANCELED) 1553 ( Given - Provider: Magdiel Gomez) 1600 (Not Given - Provider: Magdiel coto - Reason: Patient/family refused) 40 mg, Subcutaneous, Q24H, First dose on Sun07/28/16 at 1600 insulin lispro (humALOG) injection vial (CANCELED) 2242 (Given - Provider: Magdiel Gomez) 0800 (Not Given - Provider: Pearl Nuno RN - Reason: Order parameters not met)1200 (Not Given - Provider: Pearl Nuno RN - Reason: Order parameters not met) Subcutaneous, 4 TIMES DAILY SLIDING SCAL E, First dose on Sun07/29/16 at 2200, For Blood Glucose: 150 to 200 mg/dL give 1 unit 201 to 250 mg/dL give 2 units 251 to 300 mg/dL give 3 units 301 to 350 mg/dL give 4 units 351 to 400 mg/dL give 5 uni ts Call MD for BGS>400 mg/dL. Call MD to consider adjusting sliding scale or meal-time insulin for two consecutive BGS>300 mg/dL. Recommend all patients on insulin should have orders for Hypoglyce juliana Management and Treatment - please order separately. magnesium sulfate 2 g in dextrose 5 % 50 mL IVPB (COMPLETED) 1349 (Started - Provider: Luda Diaz RN)1419 (Infused - Provider: Magdiel Gomez) 2 g, Intravenous, for 30 Minutes, ONCE, 07/29/16 at 1145, For 1 dose, GIVE ONCE if condition is met. RN to NOTIFY Pharmacy to place scheduled medication order IF CONDITION is met mesalamine (LIALDA) enteric coated tablet 4.8 g 1220 (Given - Provider: Pearl Nuno RN - Comment: sent from pharmacy) 4.8 g, Oral, QDAY WITH MEAL, First dose on Sun07/30/16 at 1100, Tablet should be swallowed whole methylPREDNISolone sodium succinate (SOLU-medrol) inje ction 20 mg (CANCELED) 1548 (Given - Provider: Magdiel Gomez)2338 (Given - Provider: Meena Tatum RN) 0800 (Given - Provider: Pearl rangel RN)1550 (Given - Provider: Magdiel Gomez) 0020 (Given - Provider: Leidy medina RN)0830 (Given - Provider: Pearl Nuno RN) 20 mg, Intravenous, Q8H, First dose on 07/28/16 at 1500, Recommend blood glucose testing QID after initiation of steroids. metroNIDAZOLE (aka FLAGYL) 500mg in NaCl 0.9% 100 mL I VPB (CANCELED) 0552 (Started - Provider: Loulou Eason RN)0652 (Infused - Provider: Luda Diaz RN) 500 mg, Intravenous, for 60 Minutes, Q8H (NON-STND), First dose on Sun07/25/16 at 2100, Caution: Look-alike, sound-alike medication. multivitamin (THERAGRAN) tablet 1 Tab (CANCELED) 0800 (Not Given - Provider: Luda Diaz RN - Reason: NPO) 0839 (Given - Provider: Pearl rangel RN) 0831 (Given - Provider: Pearl rangel RN) 1 Tab, Oral, DAILY, First dose on Sun07/25/16 at 1645 norethindrone-eth estradiol (NORINYL,ORT HONOVUM) 1-35 MG-MCG tablet 1 Tab (CANCELED) 0800 (Not Given - Provider: Luda Diaz RN - Reaso n: NPO) 0800 (Given - Provider: Pearl Nuno, MARIO) 0800 (Self Administered - Provider: Pearl Nuno, MARIO) 1 Tab, Oral, DAILY, First dose on 07/11 at 0800, Patient must use own supply. potassium chloride (KCL) 10 mEq, lidocai ne 1% 2 mL in dextrose 5 % 100 mL IVPB () 1125 (Started - Provider: Luda Diaz RN)1129 (Canceled Entry - Provider: Luda Diaz, RN)1221 (Infused - Provider: Luda Diaz RN)1228 (Started - Provider: Luda Diaz RN)1328 (Infused - Provider: Luda Diaz RN) 10 mEq, Intravenous, for 60 Minutes, Q1H , First dose on Sun07/28/16 at 1030, For 3 doses, Recheck serum potassium 2 hours after completing replacement and repeat protocol as indicated. potassium chloride (KCL) 10 mEq, lidocai ne 1% 2 mL in dextrose 5 % 100 mL IVPB (COMPLETED) 1547 (Started - Provider: Magdile bauman)1647 (Infused - Provider: Magdiel Gomez) 10 mEq, Intravenous, for 60 Minutes, ONCE, Sun07/28/16 at 1315, F or 1 dose sodium chloride 0.9% injection 10-60 mL (CANCELED) 080 0 (Due)1999 (Not Given - Provider: Magdiel Gomez - Reason: Order parameters not met) 0800 (Not Given - Provider: Pearl Nuno RN - Reason: Other (Enter Reason in Comment Area))2042 (Given - Provider: Magdiel Gomez) 0831 (Given - Provider: Pearl Nuno, MARIO) 10-60 mL, Intravenous, BID, First dose o n 07/25/16 at 2000, For an INT flush, flush with at least 10 mL. For PICC (including Power Injectable PICC), flush with 10 mL. For Port-a-Cath, flush with a mi nimum of 10mL. For Castellon, flush with a minimum of 10 mL. For jugular, subclavian, femoral central lines, flush with a minimum 10 mL. For additional information about flushing processes, reference the Vascular Access Device Users Guide. vancomycin (VANCOCIN) oral solution 250 mg 0921 (Given - Provider: Luda Diaz, MARIO)1221 (Given - Provider: Luda Diaz, MARIO)1552 (Given - Provider: Magdiel Gomez)2037 (Given - Provider: Magdiel Gomez) 0800 (Given - Provider: Pearl Nuno, MARIO)1211 (Given - Provider: Luda Diaz, MARIO)1544 (Given - Provider: Magdiel Gomez)2043 (Given - Provider: Magdiel Gomez) 0832 (Given - Provider: Pearl rangel, MARIO)1133 (Given - Provider: Pearl Nuno, MARIO) 250 mg, Oral, QID, First dose on Sun07/26/16 at 0800, Refrigerate d Product. Continuous Medication Order 07/28/2016 07/29/2016 07/30/2016 NaCl 0.9%-KCl 20 mEq/liter infusion (CANCELED) 0552 (S tarted - Provider: Loulou Eason RN) 0122 (New Bag Started - Provider: Cameron Tatum, MARIO)1550 (Started - Provider: Magdiel Gomez) Intravenous, at 75 mL/hr, CONTINUOUS, Starting Sun07/25/16 at 16 45 PRN Medication Order 07/28/2016 07/29/2016 07/30/2016 acetaminophen (TYLENOL) tablet 650 mg 650 mg, Oral, Q6H PRN, Other, Mild Pain (pain score 1-4), Starting Sun07/25/16 at 1615 fentaNYL (SUBLIMAZE) injection 25 mcg (CANCELED) 1439 (Given - Provider: Kerry Warren RN)1636 (Given - Provider: Magdiel Gomez) 0525 (Given - Provider: Meena Tatum RN)1015 (Given - Provider: Berine Staples RN) 25 mcg, Intravenous, Q2H PRN, Pain, Geovanna re Pain (pain score 8-10), Starting Sun07/28/16 at 1137, Caution: Look-alike, sound-alike medication. HYDROmorphone injectable 0.3-0.5 mg (CANCELED) 0208 (G iven - Provider: Loulou Eason RN)0555 (Given - Provider: Loulou Eason RN)0922 (Given - Provider: Luda Diaz RN) 0.3-0.5 mg, Intravenous, Q2H PRN, Other, Severe Pain (pain score 8-10), Starting Sun07/25/16 at 1615, For Severe Pain (pain score 8-10) not controlled by oral opioids or if patient is unable to take PO. Do NOT administer at the same time as P O opioids. May administer 1 hour after PO opioid administration if needed. midazolam (VERSED) injection 0.5-2 mg (CANCELED) 1440 (Given - Provider: Kerry Warren RN) 0.5-2 mg, Intravenous, PRN, Sedation, St arting Sun07/28/16 at 1417, Administer in 0.5-2 mg increments as directed by endoscopy procedure MD up to a total of 8 mg. ondansetron (ZOFRAN) injection 4 mg (CANCELED) 0208 (G iven - Provider: Loulou Eason RN)0554 (Given - Provider: Loulou Eason RN) 4 mg, Intravenous, Q4H PRN, Nausea, Vomiting, Starting Sun at 1615 ondansetron (ZOFRAN-ODT) disintegrating tablet 4 mg (C ANCELED) 0819 (Given - Provider: Luda Diaz, MARIO) 4 mg, Oral, Q8H PRN, Nausea, Starting 07/25/16 at 1615, Do not swallow tablet whole. Allow to dissolve on the tongue without chewing. Use First if able to take PO prochlorPERAZINE (COMPAZINE) injection 10 mg (CANCELED ) 0920 (Given - Provider: Luda Diaz, MARIO)1226 (Given - Provider: Luda Diaz, MARIO)2136 (Given - Provider: Magdiel Gomez) 10 mg, Intravenous, Q6H PRN, Nausea, Vom iting, Starting Sun07/28/16 at 0827, Try Zofran, then prochlorperazine, then promethazine for nausea/vomiting Caution: Look-alike, sound-alike medication. simethicone (MYLICON) chewable tablet 80 mg (CANCELED) 0607 (Given - Provider: Loulou Eason RN) 80 mg, Oral, QID PRN, Gas Pain, Starting Tamela 07/27/16 at 1206 sodium chloride 0.9% injection 10-60 mL (CANCELED) 154 8 (Given - Provider: Magdiel Gomez)1636 (Given - Provider: Magdiel Gomez)2136 (Given - Provider: Magdiel Gomez) 1550 (Given - Provider: Magdiel Gomez )1754 (Given - Provider: Axel Mariee RN) 0021 (Given - Provider: Leidy medina RN) 10-60 mL, Intravenous, PRN, Line Patency , Line Care, Starting Sun07/25/16 at 1935, For an INT flush, flush with at [...] reference the Vascular Access Device Users Guide. sodium phosphate (FLEET) enema 1 Enema (COMPLETED) 124 5 (Given - Provider: Luda Diaz, MARIO) 1 Enema, Rectal, ONCE PRN, Other, For Ian wel Prep, Starting Sun07/28/16 at 1224, For 1 dose, Administer 45 minutes prior to procedure, Pre-Procedure sodium phosphate (FLEET) enema 1 Enema (COMPLETED) 132 7 (Given - Provider: Luda Diaz, MARIO) 1 Enema, Rectal, ONCE PRN, Constipation, Starting Sun07/28/16 at 1323, For 1 dose temazepam (RESTORIL) capsule 15 mg (CANCELED) 2135 (Gi chris - Provider: Magdiel Goemz) 2242 (Given - Provider: Magdiel Gomez) 15 mg, Oral, HS PRN, Sleep, Starting Tu07/25/16 at 1615 documented in this encounter Additional Health Concerns Infection Onset Date Last Indicated Resolved Time C-Diff - Enteric (Retired) 07/26/2016 07/26/201607/30 2:47 PM CREATIVE SERVICES PRODUCER documented as of this encounter Care Teams Senior Solutions Consultant Relationship Specialty Start Date End Date Sheeba Castillo, LEAD RIDER, IT ARCHITECTURE CONSULTANT PCP - General Nurse Practitioner 07/20/[address] [place] [id number] documented as of this encounter
--- OUTSIDE RECORDS SUMMARY | 2022-03-20 16:13 | XMS_ITS | Encounter Summary ---
:1975 Author Organization [email or web address] Address [address], [place] [address] Care Team Providers Name Role Phone Sheeba Castillo APRN, CNP Primary Care Provider [phone] Reason for Visit Reason Onset Date Comments Refill 07/24/2016 Encounter Details Date Type Department Care Team Description 07/24/2016 Refill [facility] Sheeba Roca APRN, Refill [address] [place] [address] [id number] [phone] [place], [place] [address] (Wo rk) Social History [...] at Date Recorded Female 05/09/2021 7:19 PM VAULT TELLER documented as of this encounter Nursing Notes Lubna Salazar RN - 07/24/2016 12:08 PM CST DOES NOT MEET REQUIREMENTS FOR REFILL Reason: medication not on approved RN refill list Last visit with PCP: qualifying visit on 11/18/15 T TELLER documented in this encounter Plan of Treatment Upcoming Encounters Date Type Specialty Care Team Description 05/05/2022 Appointment Chemo Therapy/Infusion Services 09/15/2022 Telemedicine Gastroenterology Eusebio Haines MD [address] [place], [place] [id number] (Wo rk) documented as of this encounter Visit Diagnoses Not on filedocumented in this encounter Care Teams Civil Division Commander Deputy Sheriff Relationship Specialty Start Date End Date Sheeba Castillo APRN, BIG DATA DEVELOPER PCP - General Nurse Practitioner 07/20/[address] [place] [id number] documented as of this encounter
--- OUTSIDE RECORDS SUMMARY | 2022-03-20 16:13 | XMS_ITS | Encounter Summary ---
:1975 Author Organization [facility] Address [address] [address] Care Team Providers Name Role Phone Sheeba Castillo APRN, CNP Primary Care Provider [phone] Reason for Visit Reason Onset Date Comments Post Hospital Discharge Follow Up 07/31/2016 Encounter Details Date Type Department Care Team Description 07/31/[address] [facility] Sheeba Castillo, Pos t [facility] [place] [address] [address] [place] [address] [place] [address] [phone] (Wo rk) Social History Tobacco Use Types [...] at Date Recorded Female 05/09/2021 7:19 PM DRUG AND ALCOHOL COUNSELLOR documented as of this encounter Nursing Notes Siria Bai RN - 07/31/2016 3:48 PM CST Post hospitalization discharge follow up call completed. See doc flowsheet: [facility] for details. AND ALCOHOL COUNSELLOR documented in this encounter Plan of Treatment Upcoming Encounters Date Type Specialty Care Team Description 05/05/2022 Appointment Chemo Therapy/Infusion Services 09/15/2022 Telemedicine Gastroenterology Eusebio Haines MD [address] [place], [place] [id number] (Wo rk) documented as of this encounter Visit Diagnoses Not on filedocumented in this encounter Care Teams Spent Grain Dryer Relationship Specialty Start Date End Date Sheeba Castillo, EARTH SCIENCE FACULTY MEMBER, COMMUNICATIONS TECH PCP - General Nurse Practitioner 07/20/16 [address] [place] [id number] documented as of this encounter
--- OUTSIDE RECORDS SUMMARY | 2022-03-20 16:13 | XMS_ITS | Encounter Summary ---
:1975 Author Organization [employer] Address [address] [address] Care Team Providers Name Role Phone Sheeba Castillo APRN, PAPER COATING MACHINE OPERATOR Primary Care Provider [phone] Reason for Visit Reason Onset Date Comments COMPLAINTS, NOS 07/24/2016 Encounter Details Date Type Department Care Team Description 07/24/2016 Telephone Specialty [facility] [address], COMPLAINTS, NOS Gastroenterology NURSE TRANSPLANT, PAPER COATING MACHINE OPERATOR [address] [place] [id number] [phone] Social History Tobacco Use Types Packs/Day Years [...] at Date Recorded Female 05/09/2021 7:19 PM BACK HANGER documented as of this encounter Nursing Notes Jossie Perez RN - 07/25/2016 11:17 AM CST Patient calling back stating that she has been admitted to [facility] for evaluation and treatment. Encouraged patient to call with updates, questions or concerns. HANGER Angel Hernandez RN - 07/25/2016 9:18 AM CST Left message to call back. Looking at her notes there is an ER triage assessment signed on 807 on 07/25. IT looks like she may already be at the ER. Eileen Parsons APRN, CNP - 07/24/2016 5:[address] Vasquez asked last week that she be seen early this week by CONTINUOUS PROCESS COFFEE ROASTER. If she is at [facility], she could beseen there. That would be best so that we can evaluate her carefully. The only alternatives to what she is doing is pred 60 and admission. If no spots, then she should be seen in [facility] ED for labs,etc and evaluation for admission. Sanjana Hernandez RN - 07/24/2016 2:59 PM CST Pt with ulcerative colitis, calling with update. Pt called in yesterday with bloody stools with mostly blood. Recommenation was to go to ER. Pt did not go to ER because she states too far away. GI IBD Flare Phone Triage Questions When did symptoms of this flare begin? Ongoing Are you experiencing abdominal pain? Abdominal cramping constant, waves of pain when needs to have BM, feels nauseated. After eating, abdominal cramping is on and off for the next 8 hours. Rate: moderate Are you having diarrhea? Small amount of stool, mostly blood If yes, how many stools per day? 10 per day, so far today. Usually every half hour Is there bleeding with bowel movements? blood Do you have a fever? Not sure, feels clammy What are you taking for treatment including OTCs? Prednisone 40 mg daily started last Thursday. Pt has Canasa suppository and wondering if should take? 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 Note sent Keeley Bernabe and Dr Vasquez. HANGER documented in this encounter Plan of Treatment Upcoming Encounters Date Type Specialty Care Team Description 05/05/2022 Appointment Chemo Therapy/Infusion Services 09/15/2022 Telemedicine Gastroenterology Eusebio Haines MD [address] [place], [place] [id number] (Wo rk) documented as of this encounter Visit Diagnoses Not on filedocumented in this encounter Care Teams Pulp Screen Operator Relationship Specialty Start Date End Date Sheeba Castillo, NURSE TRANSPLANT, PAPER COATING MACHINE OPERATOR PCP - General Nurse Practitioner 07/20/16 [address] MAGDALENA Dinh [id number] documented as of this encounter
--- OUTSIDE RECORDS SUMMARY | 2022-03-20 16:13 | XMS_ITS | Encounter Summary ---
:1975 Author Organization [employer] Address [address] [place] [address] Care Team Providers Name Role Phone Sheeba Castillo APRN, VESSEL SLAG WORKER Primary Care Provider Reason for Visit Reason Comments STOOL, BLOODY Encounter Details Date Type Department Care Team Description 07/23/2016 Nurse Triage Careline Unassigned, Provider STOOL, BLOODY [address] [place], [place] [address] [place] [address] Social History Tobacco Use Types Packs/Day Years [...] at Date Recorded Female 05/09/2021 7:19 PM BUSINESS SERVICES COORDINATOR documented as of this encounter Nursing Notes Sindy Lozano RN - 07/23/2016 9:04 AM CST Protocol: ABDOMINAL PAIN - [id number] Affirmative: Blood in bowel movements (Exception: blood on surface of BM with constipation) Disposition of Go To ED Now suggested. NESS SERVICES COORDINATOR Sindy Lozano RN - 07/23/2016 8:59 AM CST Caller transferred for triage by [facility]line Residential Roofer Helper . Verified and full name. Yes Situation/Background (brief explanation of current symptoms/situation): Seen in ER this week for diarrhea , 07/[address] done , colitis flared and given Prednisone on 07/20 . Sunday seemed ok until that night . Since that night having bm every 15-20 minutes ,some bloody otherwise watery brown color . Drinking gateraide or water all weekend . Has lower abd pain on and off that is severe . Not weak or dizzy She is supposed to speak to GI tomorrow - Dr Vasquez at [facility] . Had gallbladder removed 07/12/15 . Reviewed with patient pertinent medical history(as it related to the call): Yes Reviewed with patient pertinent medications (as they relate to call): Yes She is concerned as starts a new job tomorrow , will discuss with ER provider and get documentation if unable to work . NESS SERVICES COORDINATOR Karina Flores - 07/23/2016 8:55 AM CST Which care system or clinic is the patient [place] seen at[place] [facility] [place] [place] [facility] Situation: Medical: sick since she got out her gallbladder 07/12, now she has colitis on was given predisone on , now she has cramps and bloody diarrhea and in pain: Plan:Call transferred directly to CareLine nurse. NESS SERVICES COORDINATOR documented in this encounter Plan of Treatment Upcoming Encounters Date Type Specialty Care Team Description 05/05/2022 Appointment Chemo Therapy/Infusion Services 09/15/2022 Telemedicine Gastroenterology Eusebio Haines MD [address] [place], [place] [phone] (Wo rk) documented as of this encounter Visit Diagnoses Not on filedocumented in this encounter Care Teams Complex Care Nurse Relationship Specialty Start Date End Date Sheeba Castillo, DIAL BRUSHER, VESSEL SLAG WORKER PCP - General Nurse Practitioner 07/20/16 [address] MAGDALENA Dinh [id number] documented as of this encounter
--- OUTSIDE RECORDS SUMMARY | 2022-03-20 16:13 | XMS_ITS | Encounter Summary ---
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 female here for follow up regarding acute gastrointestinal issues following her cholecystectomy on 07/12. Mostly needs paper work completed so she can return to work on Sunday and for leave documentation. Seen in the ED earlier this week. Abdominal CT revealed probable colitis flare. Treatment held whileawaiting stool cultures but those are negative. Started prednisone yesterday afternoon. Took 40mg yesterday and this morning. Will be calling [facility] on Sunday with an update and taper plan for theprednisone. Today no diarrhea or vomiting. Low grade temp last night but nothing today. O: BP 130/82 mmHg Pulse 106 Temp(Src) 98.5 ??F (36.9 ??C) (Oral) Resp 12 Vitals reviewed by me. No exam done A: Admin encounter Colitis P: 1) Forms completed and will be scanned to her medical record 2) Continue prednisone and follow up with GI next week Fernanda Lancaster PA-C 07/21/2016, 10:12 PM TARY PAY CLERK documented in this encounter Plan of Treatment Upcoming Encounters Date Type Specialty Care Team Description 05/05/2022 Appointment Chemo Therapy/Infusion Services 09/15/2022 Telemedicine Gastroenterology Eusebio Haines MD [address] [place] [address] (Wo rk) documented as of this encounter Visit Diagnoses Diagnosis Encounters for administrative purpose - Primary Encounters for unspecified administrativ e purpose Colitis Other and unspecified noninfectious mónica roenteritis and colitis documented in this encounter Care Teams Utility Bill Collector Relationship Specialty Start Date End Date Sheeba Castillo, PICKERS MATERIAL HANDLERS, FAMILY PRACTICE MEDICAL DOCTOR PCP - General Nurse Practitioner 07/20/[address] [place] [id number] documented as of this encounter
--- OUTSIDE RECORDS SUMMARY | 2022-03-20 16:13 | XMS_ITS | Encounter Summary ---
:1975 Author Organization [employer] Address [address] [place] [address] Care Team Providers Name Role Phone Sheeba Castillo APRN, CNP Primary Care Provider [phone] Reason for Referral Consult/Transfer Care (Routine) - Closed Specialty Diagnoses / Procedures Referred By Contact Refer red To Contact Diagnoses Ulcerative rectosigmoiditis with rectal bleeding (HRC) Eye Eileen Chairez APRN, CNP [id number] [place] [address] Referral ID Status Reason Start Date Expiration Date Visits Requ ested Visits Authorized [id number] Closed 08/14/2016 11/13/2017 1 1 Scheduling Instructions Your provider has recommended an appoint ment with Cindy Zelaya. You may call [phone] to schedule your appoi ntment. If you do not schedule an appointment within the next 1 to 3 business days, we will call you to help arrange your appointment. We suggest you call your [employer] insurance company about your coverage and benefits for this appointment. ASSOCIATE Reason for Visit Reason Comments Follow-up Encounter Details Date Type Department Care Team Description 08/14/2016 Office Visit Eileen White Ulcerative rectosigmoiditis with rectal bleeding (HRC) (Primary Dx); Gastroenterology RUDY King CNP Eye [facility] [address] [address] [place] [address] [phone] Social History Tobacco Use Types Packs/Day Years [...] at Date Recorded Female 05/09/2021 7:19 PM LOAN ASSOCIATE documented as of this encounter Last Filed Vital Signs Vital Sign Reading Time Taken Comments Blood Pressure 134/86 08/14/2016 3:47 PM LOAN ASSOCIATE Pulse 114 08/14/2016 3:47 PM LOAN ASSOCIATE Temperature - - Respiratory Rate 16 08/14/2016 3:47 PM LOAN ASSOCIATE Oxygen Saturation - - Inhaled Oxygen Concentration - - Weight 89.4 kg (197 lb) 08/14/2016 3:47 PM LOAN ASSOCIATE Height 165.7 cm (5' 5.25) 08/14/2016 3:47 PM LOAN ASSOCIATE Body Mass Index 32.53 08/14/2016 3:47 PM LOAN ASSOCIATE documented in this encounter Patient Instructions Patient InstructionsEileen Bernabe APRN, PIPE SETTER - 08/14/2016 4:19 PM LOAN ASSOCIATE Immunosuppressants Azathioprine (Imuran) or Mercaptopurine (6-MP) are immunosuppressive drugs that reduce the inflammation that is occurring in your intestines due to inflammatory bowel disease. It is prescribed in orderto lower the amount of steroid doses required to control symptoms, or if other medications, such as Asacol or sulfasalazines (5-ASAs), didn't work, stopped working, or caused a reaction. Side effects include: ?? GI: hypersensitivity, nausea or vomiting. Usually occurs early in treatment and less often when started at a low dose. ?? LIVER: Inflammation of the liver cells occasionally occurs. This is rarely severe, usually resolves at lower doses, resolves if drug is stopped. ?? PANCREATITIS: Inflammation of the pancreas, also rare. Causes abdominal pain, and nausea. Call right away if you have severe upper abdominal pain. ?? BLOOD: decreased white blood cells, red blood cells, or platelets can occur. This is rarely severe, usually resolves on lower doses, resolves if drug is stopped. ?? INFECTION: generally this is related to the lowering of white blood cells. It is not common, but the risk of serious infection is about 2% higher than in people not on Imuran. ?? CANCER: The risk of lymphoma or other blood cancers is increased in patients taking Imuran or 6MPbut it is very small, less than a 1% increase in risk (not 1% increase in cancer). Fortunately it isvery rare. Before you begin therapy we test for the enzyme thiopurine methyltransferase (TPMT). People with no or low levels of this enzyme are at very high risk of blood cell suppression. You only need this drawn once, and the level will determine whether or not you can use Imuran, and at what dose. Routine monitoring. You must have labs to monitor blood cells and liver before you begin, after 2 weeks and 4 weeks on the drug, then monthly for 1 year. After that, if labs have been stable, every 3 months. Monitoring for blood and liver side effects will catch them early. If you stop or reduce the drug, it will usually go back to normal Be sure to call us if you experience any side effects or have any questions. Lab results will be in your [employer] account, or will be sent by letter. Immunodmodulators Overall the anti-TNF medications (Infliximab, adalimumab, certolizumab pegol, and golimumab) are safe medications. However there are risks to these medications that you should be aware of: 1. Infections: Because this medication affects your immune system, you are at increased risk of all infections including serious bacterial, viral (such as zoster), or fungal (such as histoplasmosis) infections. Additionally you are at risk for re-activating a latent (suppressed) infection such as latent tuberculosis or hepatitis B. It is important that you are screened for tuberculosis and hepatitis B prior to starting this medication. While on this medication you should also have a yearly assessment of Tb (skin test, blood test, or questions about Tb symptoms or exposures). 2. Infusion/injection site reactions: Because these medications are antibodies, it is possible that your body may recognize them and make antibodies against these medications. This can results in acuteinfusion or injection site reactions which can manifest as a rash or hives. Sometimes the infusion reactions can be delayed 1-2 weeks after your infusion or injection. In this case it can cause a rash,joint pain or fatigue and be very difficult to diagnose. Rarely you can develop a lupus like syndrome or psoriasis from these medications. 3. Lymphoma: While rare, it is estimated that these medications can cause lymphoma in about 2-3:10,000 individuals. While this risk is still low, it is important to have routine blood monitoring as well as to inform myself or your primary care doctor if you are having persistently swollen lymph nodes, unexplained fever, or weight loss. Additionally a very rare lymphoma called Hepatosplenic T Cell Lymphoma has been reported in between 30 and 40 patients on anti-TNF medications who are also taking a thiopurine (azathioprine or mercaptopurine). This lymphoma may be more common in young males taking both drugs. 4. Skin Cancer: There is a very mild increased risk of skin cancer with this type of medication. Typically developing a skin cancer on this mediation is treatable and does not require you to stop this medication. However, it is important to have a yearly skin exam and to let myself, your primary care d octor, or a solar installer pv know if you have any concerning skin lesions or moles. 5. Elevated Liver tests: Sometimes these medications can cause some mild liver damage. Because of this is it important to have routine blood work a few times a year to assess your liver. 6. Low Blood Counts: Called cytopenias, these medications may precipitate a low blood count. Because of this we recommend routine monitoring of your blood count. 6. Heart Failure: Rarely these medications can cause heart failure. However, if you have severe heart failure these medications may make this worse and may not be indicated for you. If you have heart failure, or if you develop new or worsening shortness of breath or swelling in your legs, please let myself or your primary care doctor know. 7. Nervous system disorder: This can include numbness, tingling or blurry vision. If you have multiple sclerosis or have had Guillain-Hendley syndrome, please let myself know as these medications may make your symptoms worse. Despite these risks, with close monitoring, most people do very well on these medications without any side effects. Typically these risks are offset by the risk of not treating your Inflammatory Bowel Disease. Below is a summary of the recommended monitoring: - Blood count and liver tests every 3-4 months - Yearly assessment for tuberculosis (skin test, blood test or questions about exposure) - Yearly skin exam - Please see your primary care doctor to make sure you are up-to-date on all of your age appropriatevaccinations. Please note, you should NOT receive any live vaccines while on these medications. Typical live vaccines include the intranasal influenza vaccine, yellow fever vaccine, and the herpes zoster vaccine - Please make sure to get a yearly influenza vaccine - Please get the pneumococcal vaccine once and a booster in 5 years. ASSOCIATE documented in this encounter Progress Notes Eileen Bernabe APRN, CNP - 08/14/2016 3:53 PM CST Name: Idania Duarte MR#: [id number] CSN: [id number] Date of Visit: 08/14/2016 : 1975 HPI: I am asked to see Idania Duarte, a pleasant 41 y.o. year old female, seen today for a post-hospitalization followup for ulcerative proctosigmoiditis flare and C diff infection. Disease: UC Age at diagnosis: 40 Extent: proctitis, the proximal spread to rectosigmoid, and per CT pancolitis Phenotype: na Perianal involvement: no Extraintestinal manifestations: yes, muscle aches Prior IBD treatment: Oral 5 ASA: Lialda Topical 5 ASA: canasa Topical steroids: proctofoam Steroids: prednisone Immunomodulators: Biologics: Current therapy/date: prednisone, canasa, Lialda 07/2016 Recent imaging: Diffuse wall thickening involving nearly the entire colon with some sparing of the cecum, sigmoid colon and rectum is again noted. There is slightly greater involvement of the distal descending and sigmoid colon than on the prior study. Mild pericolonic inflammatory stranding is again noted. No pneumatosis or free air. Impression Findings compatible with colitis may be secondary to the patient's history of ulcerative colitis although infectious colitis including pseudomembranous colitis could have a similar appearance. The distribution would be atypical for ischemic colitis. There is slightly greater involvement Prior surgery: no surgery Admission excerpt, Dr. Foreman:07/25 She has had on-and-off abdominal pain with intermittent rectal bleeding since spring 2015.?? Most recently, has been evaluated for right upper quadrant discomfort and was found to have gallstones on ultrasound.?? She underwent an uncomplicated laparoscopic cholecystectomy on 07/12/2016.?? During the surgery, she was noted to have a fair amount of edema in the region of the hepatic flexure of the colon.?? She did receive her routine preoperative antibiotics.?? She subsequently continued to have abdominal pain, nausea, vomiting, fevers.?? She was seen in Urgent Care on 07/19 and was started on prednisone 40 mg daily.?? Clostridium difficile PCR on 07/19/2016 was negative.?? She continued to feel poorly with worsening abdominal pain and hematochezia.?? She presented to the emergency room today and reported bloody bowel movements every 5-10 minutes.?? She also had rectal discomfort.?? When she did not improve after a couple of days of antibiotic treatment, the primary cause of her symptoms was thought to be UC flare. She was started on IV steroids, and improved, and was discharged on prednisone, Lialda, and rectal steroid. Today she feels about 50% better she says. There is a bit of stool form, no blood, no nocturnal sx, but her body is very achy - legs weak and sore. She feels she is improving bu her stamina is still unusually low, and she continues to have waves of cramps. She is still on vanco - just went down to twice daily. Significant Negatives (ROS) Review of Systems CONSTITUTIONAL: No:, Change in appetite, change in weight and fevers, sweats EYES: no visual blurring, no double vision, no eye pain, (Positive for redness left eye, crusting,) RESPIRATORY: no shortness of breath, no cough, no sputum CARDIOVASCULAR: no chest pain, no exertional chest pain or pressure GASTROINTESTINAL: normal appetite, no nausea, no heartburn or reflux, no dyspepsia, no abdominal pain, no melena, no hematochezia, no diarrhea MUSCULOSKELETAL: no weakness, no nocturnal cramping, (Positive for muscle pains) SKIN: no rash, no itch NEUROLOGIC: no tremor, no syncope PSYCHIATRIC: no sleep disturbances, no anxiety, no depression, no excessive alcohol consumption HEMATOLOGIC/LYMPHATIC/IMMUNOLOGIC: no fevers, no night sweats, no chills, no weight loss PE: Constitutional. Appears stated age in no apparent distress. Eyes: Anicteric. Left eye visible blood vessels Lungs: Respiratory effort is normal. Abdomen: soft, diffuse tender, no guarding or rebound. Neurological: alert, oriented x 3 Skin: no jaundice. Warm and dry. Extremities: non edematous Hematological: no visible petechiae, no significant visible bleeding Psychiatric/Behavioral: Mood, affect, behavior normal. Assessment: Diagnoses and all orders for this visit: Ulcerative rectosigmoiditis with rectal bleeding (HRC) - Sodium - Potassium - Creatinine - C Reactive Protein Eye redness - Ophthalmology Consult-Adult/Peds - C Reactive Protein Recommendations: Immunosuppressants and/or biologics have been discussed for Idania. Today we discussed these medications in detail, including method of action, benefits, risks, monitoring. Written info was given to herin her AVS. All prelabs are back and normal. Anticipate she will start at least immunologics soon; will discuss with her IBD team. Patient Instructions Immunosuppressants Azathioprine (Imuran) or Mercaptopurine (6-MP) are immunosuppressive drugs that reduce the inflammation that is occurring in your intestines due to inflammatory bowel disease. It is prescribed in orderto lower the amount of steroid doses required to control symptoms, or if other medications, such as Asacol or sulfasalazines (5-ASAs), didn't work, stopped working, or caused a reaction. Side effects include: ?? GI: hypersensitivity, nausea or vomiting. Usually occurs early in treatment and less often when started at a low dose. ?? LIVER: Inflammation of the liver cells occasionally occurs. This is rarely severe, usually resolves at lower doses, resolves if drug is stopped. ?? PANCREATITIS: Inflammation of the pancreas, also rare. Causes abdominal pain, and nausea. Call right away if you have severe upper abdominal pain. ?? BLOOD: decreased white blood cells, red blood cells, or platelets can occur. This is rarely severe, usually resolves on lower doses, resolves if drug is stopped. ?? INFECTION: generally this is related to the lowering of white blood cells. It is not common, but the risk of serious infection is about 2% higher than in people not on Imuran. ?? CANCER: The risk of lymphoma or other blood cancers is increased in patients taking Imuran or 6MPbut it is very small, less than a 1% increase in risk (not 1% increase in cancer). Fortunately it isvery rare. Before you begin therapy we test for the enzyme thiopurine methyltransferase (TPMT). People with no or low levels of this enzyme are at very high risk of blood cell suppression. You only need this drawn once, and the level will determine whether or not you can use Imuran, and at what dose. Routine monitoring. You must have labs to monitor blood cells and liver before you begin, after 2 weeks and 4 weeks on the drug, then monthly for 1 year. After that, if labs have been stable, every 3 months. Monitoring for blood and liver side effects will catch them early. If you stop or reduce the drug, it will usually go back to normal Be sure to call us if you experience any side effects or have any questions. Lab results will be in your [employer] account, or will be sent by letter. Immunodmodulators Overall the anti-TNF medications (Infliximab, adalimumab, certolizumab pegol, and golimumab) are safe medications. However there are risks to these medications that you should be aware of: 1. Infections: Because this medication affects your immune system, you are at increased risk of all infections including serious bacterial, viral (such as zoster), or fungal (such as histoplasmosis) infections. Additionally you are at risk for re-activating a latent (suppressed) infection such as latent tuberculosis or hepatitis B. It is important that you are screened for tuberculosis and hepatitis B prior to starting this medication. While on this medication you should also have a yearly assessment of Tb (skin test, blood test, or questions about Tb symptoms or exposures). 2. Infusion/injection site reactions: Because these medications are antibodies, it is possible that your body may recognize them and make antibodies against these medications. This can results in acuteinfusion or injection site reactions which can manifest as a rash or hives. Sometimes the infusion reactions can be delayed 1-2 weeks after your infusion or injection. In this case it can cause a rash,joint pain or fatigue and be very difficult to diagnose. Rarely you can develop a lupus like syndrome or psoriasis from these medications. 3. Lymphoma: While rare, it is estimated that these medications can cause lymphoma in about 2-3:10,000 individuals. While this risk is still low, it is important to have routine blood monitoring as well as to inform myself or your primary care doctor if you are having persistently swollen lymph nodes, unexplained fever, or weight loss. Additionally a very rare lymphoma called Hepatosplenic T Cell Lymphoma has been reported in between 30 and 40 patients on anti-TNF medications who are also taking a thiopurine (azathioprine or mercaptopurine). This lymphoma may be more common in young males taking both drugs. 4. Skin Cancer: There is a very mild increased risk of skin cancer with this type of medication. Typically developing a skin cancer on this mediation is treatable and does not require you to stop this medication. However, it is important to have a yearly skin exam and to let myself, your primary care d octor, or a solar installer pv know if you have any concerning skin lesions or moles. 5. Elevated Liver tests: Sometimes these medications can cause some mild liver damage. Because of this is it important to have routine blood work a few times a year to assess your liver. 6. Low Blood Counts: Called cytopenias, these medications may precipitate a low blood count. Because of this we recommend routine monitoring of your blood count. 6. Heart Failure: Rarely these medications can cause heart failure. However, if you have severe heart failure these medications may make this worse and may not be indicated for you. If you have heart failure, or if you develop new or worsening shortness of breath or swelling in your legs, please let myself or your primary care doctor know. 7. Nervous system disorder: This can include numbness, tingling or blurry vision. If you have multiple sclerosis or have had Guillain-Hendley syndrome, please let myself know as these medications may make your symptoms worse. Despite these risks, with close monitoring, most people do very well on these medications without any side effects. Typically these risks are offset by the risk of not treating your Inflammatory Bowel Disease. Below is a summary of the recommended monitoring: - Blood count and liver tests every 3-4 months - Yearly assessment for tuberculosis (skin test, blood test or questions about exposure) - Yearly skin exam - Please see your primary care doctor to make sure you are up-to-date on all of your age appropriatevaccinations. Please note, you should NOT receive any live vaccines while on these medications. Typical live vaccines include the intranasal influenza vaccine, yellow fever vaccine, and the herpes zoster vaccine - Please make sure to get a yearly influenza vaccine - Please get the pneumococcal vaccine once and a booster in 5 years. Idania Duarte was given a summary of this visit, diagnoses, suggested interventions, orders and followup. She was encouraged to call or come back in if her symptoms continue or worsen. Treatment planand follow up discussed with the patient and documented in the AVS. Total time spent with patient was 30 minutes, of which 20 minutes were spent consulting patient on condition, treatment, and plan of care. Thank you for allowing me to participate in the care of your patient. Eileen Bernabe APRN, CNP Gastroenterology [facility] ASSOCIATE documented in this encounter Plan of Treatment Upcoming Encounters Date Type Specialty Care Team Description 05/05/2022 Appointment Chemo Therapy/Infusion Services 09/15/2022 Telemedicine Gastroenterology Eusebio Haines MD [address] [place], [place] [id number] (Wo rk) Scheduled Referrals Name Type Priority Associated Diagnoses Order S chedule Ophthalmology Referral Routine Ulcerative Ordered: Consult-Adult/Peds rectosigmoiditis with 08/14/2016 rectal bleeding (HRC) Eye redness documented as of this encounter Results (ABNORMAL) C Reactive Protein (08/14/2016 4:41 PM LOAN ASSOCIATE) P athologist Signature CRP 0.6 (H) 0.0 - 0.5 PN SOFT mg/dL Specimen Anatomical Collection Method Collection Time Receive d Time (Source) Location / / Volume Laterality 08/14/2016 4:41 PM 7 4:41 LOAN ASSOCIATE PM LOAN ASSOCIATE Narrative PN SOFT - 08/14/2016 5:06 PM LOAN ASSOCIATE Performed at [facility], [address] [place] [address] CLIA number [id number] Eileen Bernabe APRN, CNP LAB_1 Performing Organization Address City/State/ZIP Code Phon e Number PN SOFT [address] [place], [place] [address] Creatinine (08/14/2016 4:41 PM LOAN ASSOCIATE) athologist Signature Creatinine Serum 0.60 0.55 - PN SOFT 1.02 mg/dL Est [...] Time (Source) Location / / Volume Laterality 08/14/2016 4:41 PM 7 4:41 LOAN ASSOCIATE PM LOAN ASSOCIATE Narrative PN SOFT - 08/14/2016 5:06 PM LOAN ASSOCIATE Performed at [facility], [address] [place] [address] CLIA number [id number] Eileen Bernabe APRN, CNP LAB_1 Performing Organization Address City/[facility] Code Phon e Number PN SOFT [address] [place] [address] Potassium (08/14/2016 4:41 PM LOAN ASSOCIATE) athologist [facility] Potassium 3.7 3.5 - 5.2 PN SOFT mmol/L Specimen Anatomical Collection Method Collection Time Receive d Time (Source) Location / / Volume Laterality 08/14/2016 4:41 PM 7 4:41 LOAN ASSOCIATE PM LOAN ASSOCIATE Narrative PN SOFT - 08/14/2016 5:06 PM LOAN ASSOCIATE Performed at [facility], [facility] [place][note 2] [address] [place] [address] CLIA number [id number] Eileen Bernabe APRN, CNP LAB_1 Performing Organization Address City/[facility] Code Phon e Number PN SOFT [address] [place] [address] Sodium (08/14/2016 4:41 PM LOAN ASSOCIATE) athologist Signature Sodium 138 136 - 145 PN SOFT mmol/L Specimen Anatomical Collection Method Collection Time Receive d Time (Source) Location / / Volume Laterality 08/14/2016 4:41 PM 201 7 4:41 LOAN ASSOCIATE PM LOAN ASSOCIATE Narrative PN SOFT - 08/14/2016 5:06 PM LOAN ASSOCIATE Performed at [facility], [address] [facility], [place] [address] CLIA number [id number] Eileen Bernabe APRN, CNP LAB_1 Performing Organization Address City/State/ZIP Code Phon e Number PN SOFT [address] [place] [address] documented in this encounter Visit Diagnoses Diagnosis 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 Eye redness Redness or discharge of eye Ulcerative rectosigmoiditis with rectal bleeding (HRC) Eye redness Redness or discharge of eye documented in this encounter Care Teams Development And Housing Director Relationship Specialty Start Date End Date Sheeba Castillo APRN, PIPE SETTER PCP - General Nurse Practitioner 07/20/[id number] [place] [address] documented as of this encounter
--- OUTSIDE RECORDS SUMMARY | 2022-03-20 16:13 | XMS_ITS | Encounter Summary ---
:1975 Author Organization [employer] Address [address], [place] [address] Care Team Providers Name Role Phone Sheeba Castillo APRN, CNP Primary Care Provider [phone] Reason for Visit Reason Onset Date Comments APPOINTMENT REQUEST 07/30/2016 Encounter Details Date Type Department Care Team Description 07/30/2016 Telephone [facility] [address] PPOINTMENT REQUEST Gastroenterology [facility] [address] [place], [place] Rick 4-020 [address] [place], [place] [phone] (Wo rk) Social History Tobacco Use Types [...] at Date Recorded Female 05/09/2021 7:19 PM SPOUT LINER documented as of this encounter Nursing Notes Beth Nichols RN - 07/31/2016 8:54 AM CST Pt notified and verbalized understanding of below. Appointment made for 08/14/16 with Eileen Bernabe. Pt to call back if any further questions or concerns. T LINER Faye Hinojosa APRN, CNP - 07/30/2016 10:44 AM CST Patient discharging from hospital today. Needs GI clinic follow up in [address] Mcmanus if he has any post hospital slots left, or Aftab Bernabe in [facility], or me in IBD clinic. Dx: Ulcerative colitis, Cdiff colitis T LINER documented in this encounter Plan of Treatment Upcoming Encounters Date Type Specialty Care Team Description 05/05/2022 Appointment Chemo Therapy/Infusion Services 09/15/2022 Telemedicine Gastroenterology Eusebio Haines MD [address] [place], [place] [address] (Wo rk) documented as of this encounter Visit Diagnoses Not on filedocumented in this encounter Care Teams Sifter And Miller Relationship Specialty Start Date End Date Sheeba Castillo APRN, PLATING TANK OPERATOR PCP - General Nurse Practitioner 07/20/16 [address] [place] [address] documented as of this encounter
--- OUTSIDE RECORDS SUMMARY | 2022-03-20 16:13 | XMS_ITS | Encounter Summary ---
:1975 Author Organization [employer] Address [address] [address] Care Team Providers Name Role Phone Sheeba Castillo APRN, CNP Primary Care Provider [phone] Encounter Details Date Type Department Care Team Description 07/21/2016 Correspondence [facility] Fernanda Lancaster D ISABILITY CLAIM Practice PA-C [facility] [address] [address] [phone] Social History Tobacco Use Types Packs/Day Years [...] Date Recorded Female 05/09/2021 7:19 PM FIELD NURSE CASE MANAGER documented as of this encounter Plan of Treatment Upcoming Encounters Date Type Specialty Care Team Description 05/05/2022 Appointment Chemo Therapy/Infusion Services 09/15/2022 Telemedicine Gastroenterology Eusebio Haines MD [address] [place] [address] (Wo rk) documented as of this encounter Visit Diagnoses Not on filedocumented in this encounter Care Teams Dog Food Dough Mixer Relationship Specialty Start Date End Date Sheeba Castillo, LEAD MILITARY ANALYST, PUBLIC RELATIONS INTERN PCP - General Nurse Practitioner 07/20/16 [address] [place] [address] documented as of this encounter
--- OUTSIDE RECORDS SUMMARY | 2022-03-20 16:13 | XMS_ITS | Encounter Summary ---
:1975 Author Organization [employer] Address [address] [place] [address] Care Team Providers Name Role Phone Sheeba Castillo APRN, CNP Primary Care Provider [phone] Reason for Visit Reason Comments Eye Problem Consult/Transfer Care (Routine) - Closed Specialty Diagnoses / Procedures Referred By Contact Refer red To Contact Diagnoses Ulcerative rectosigmoiditis with rectal bleeding (HRC) Eye redness Eileen Bernabe, PRODUCT TESTER FIBERGLASS, CHILD CARE LEADER [address] [place] [address] Referral ID Status Reason Start Date Expiration Date Visits Requ ested Visits Authorized [id number] Closed 08/14/2016 11/13/2017 1 1 Encounter Details Date Type Department Care Team Description 08/15/2016 Office Visit Serafin Galvan, Trichiasis of eyelid, left (Primary Dx); Ophthalmology OD Conjunctival hemorrhage of left eye [address] [facility] [place] [address] [facility] [phone] [place] [phone] Social History Tobacco Use Types Packs/Day Years [...] at Date Recorded Female 05/09/2021 7:19 PM ELECTROPHYSIOLOGY TECHNICIAN documented as of this encounter Progress Notes Serafin Mariee, OD - 08/15/2016 6:23 PM CST General medical assessment: Patient is alert. Basically healthy. Assessment: ICD-10-CM 1. 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 Conjunctival hemorrhage of left eye H11.32 Single lash epilated from MALLORY. Plan: 1. Discussed findings with patient. 2. Tears q2-4h left eye for 3-4 days. 3. Return to clinic as needed. TROPHYSIOLOGY TECHNICIAN documented in this encounter Plan of Treatment Upcoming Encounters Date Type Specialty Care Team Description 05/05/2022 Appointment Chemo Therapy/Infusion Services 09/15/2022 Telemedicine Gastroenterology Eusebio Haines MD [address] [place], [place] [address] (Wo rk) Scheduled Referrals Name Type Priority Associated Diagnoses Order S chedule Ophthalmology Referral Routine Ulcerative Ordered: Consult-Adult/Peds rectosigmoiditis with 08/14/2016 rectal bleeding (HRC) Eye redness documented as of this encounter Visit Diagnoses Diagnosis Trichiasis of eyelid, left - Primary Conjunctival hemorrhage of left eye Conjunctival hemorrhage documented in this encounter Care Teams Sole Skiver Relationship Specialty Start Date End Date Sheeba Castillo, PRODUCT TESTER FIBERGLASS, CHILD CARE LEADER PCP - General Nurse Practitioner 07/20/16 [address] [place] [address] documented as of this encounter
--- OUTSIDE RECORDS SUMMARY | 2022-03-20 16:13 | XMS_ITS | Encounter Summary ---
:1975 Author Organization [employer] Address [address], [place] [address] Care Team Providers Name Role Phone Sheeba Castillo APRN, SIERRA Primary Care Provider [phone] Encounter Details Date Type Department Care Team Description 08/14/2016 Lab Visit [facility] Ulcerative rectosigmoiditis with rectal bleeding (HRC); [address] [place], [place] [address] Social History Tobacco Use Types Packs/Day Years [...] at Date Recorded Female 05/09/2021 7:19 PM INFORMATICS SPECIALIST documented as of this encounter Plan of Treatment Upcoming Encounters Date Type Specialty Care Team Description 05/05/2022 Appointment Chemo Therapy/Infusion Services 09/15/2022 Telemedicine Gastroenterology Eusebio Haines MD [address] [place], [place] [address] (Wo rk) documented as of this encounter Procedures Procedure Name Priority Date/Time Associated Diagnosis Comme nts CREATININE / GFR Routine 08/14/2016 4:41 Ulcerative Results for this PM INFORMATICS SPECIALIST rectosigmoiditis with proced ure are in rectal bleeding (HRC) the re sults section. C-REACTIVE PROTEIN Routine 08/14/2016 4:41 Ulcerative Result s for this PM INFORMATICS SPECIALIST rectosigmoiditis with proced ure are in rectal bleeding (HRC) the results Eye redness section. SODIUM Routine 08/14/2016 4:41 Ulcerative Results for this PM INFORMATICS SPECIALIST rectosigmoiditis with proced ure are in rectal bleeding (HRC) the re sults section. POTASSIUM Routine 08/14/2016 4:41 Ulcerative Results for this PM INFORMATICS SPECIALIST rectosigmoiditis with proced ure are in rectal bleeding (HRC) the re sults section. documented in this encounter Results (ABNORMAL) C Reactive Protein (08/14/2016 4:41 PM INFORMATICS SPECIALIST) athologist Signature CRP 0.6 (H) 0.0 - 0.5 PN SOFT mg/dL Specimen Anatomical Collection Method Collection Time Receive d Time (Source) Location / / Volume Laterality 08/14/2016 4:41 PM 7 4:41 INFORMATICS SPECIALIST PM INFORMATICS SPECIALIST Narrative PN SOFT - 08/14/2016 5:06 PM INFORMATICS SPECIALIST Performed at [facility], [address] [id number] CLIA number [id number] Eileen Bernabe APRN, SIERRA LAB_1 Performing Organization Address City/State/ZIP Code [facility] e Number PN SOFT [address] [place] [address] Creatinine (08/14/2016 4:41 PM INFORMATICS SPECIALIST) athologist Signature Creatinine Serum 0.60 0.55 - [...] Volume Laterality 08/14/2016 4:41 PM 7 4:41 INFORMATICS SPECIALIST PM INFORMATICS SPECIALIST Narrative PN SOFT - 08/14/2016 5:06 PM INFORMATICS SPECIALIST Performed at [facility], [address] [place], [place] [id number] CLIA number [id number] Eileen Bernabe APRN, CNP LAB_1 Performing Organization Address [facility] Code Phon e Number PN SOFT [address] [place] [address] Potassium (08/14/2016 4:41 PM INFORMATICS SPECIALIST) athologist Signature Potassium 3.7 3.5 - 5.2 PN SOFT mmol/L Specimen Anatomical Collection Method Collection Time Receive d Time (Source) Location / / Volume Laterality 08/14/2016 4:41 PM 7 4:41 INFORMATICS SPECIALIST PM INFORMATICS SPECIALIST Narrative PN SOFT - 08/14/2016 5:06 PM INFORMATICS SPECIALIST Performed at [facility], [address] [place], [place] [id number] CLIA number [id number] Eileen Bernabe APRN, CNP LAB_1 Performing Organization Address [facility] Phon e Number PN SOFT [address] [place] [address] Sodium (08/14/2016 4:41 PM INFORMATICS SPECIALIST) athologist Signature Sodium 138 136 - 145 PN SOFT mmol/L Specimen Anatomical Collection Method Collection Time Receive d Time (Source) Location / / Volume Laterality 08/14/2016 4:41 PM 7 4:41 INFORMATICS SPECIALIST PM INFORMATICS SPECIALIST Narrative PN SOFT - 08/14/2016 5:06 PM INFORMATICS SPECIALIST Performed at [facility], [facility] [address] [place] [address] CLIA number [id number] Eileen Bernabe APRN, CNP LAB_1 Performing Organization Address [facility] Phon e Number PN SOFT [address] [place] [address] documented in this encounter Visit Diagnoses Diagnosis Ulcerative rectosigmoiditis with rectal bleeding (HRC) Eye redness Redness or discharge of eye documented in this encounter Care Teams Simplex Printer Installer Relationship Specialty Start Date End Date Sheeba Castillo, SECURITY THREAT ANALYST, CAR SHAKEOUT OPERATOR PCP - General Nurse Practitioner 07/20/16 [address] [place] [address] documented as of this encounter
--- OUTSIDE RECORDS SUMMARY | 2022-03-20 16:13 | XMS_ITS | Encounter Summary ---
:1975 Author Organization [employer] Address [address] [address] Care Team Providers Name Role Phone Sheeba Castillo APRN, SIERRA Primary Care Provider [phone] Encounter Details Date Type Department Care Team Description 07/22/2016 Correspondence [facility] Fernanda Lancaster R ETURN TO [facility] PA-C [address] [facility] [address] [place] [address] [phone] Social History Tobacco Use Types Packs/Day Years [...] at Date Recorded Female 05/09/2021 7:19 PM SPANISH MEDICAL INTERPRETER documented as of this encounter Plan of Treatment Upcoming Encounters Date Type Specialty Care Team Description 05/05/2022 Appointment Chemo Therapy/Infusion Services 09/15/2022 Telemedicine Gastroenterology Eusebio Haines MD [address] [place] [address] (Wo rk) documented as of this encounter Visit Diagnoses Not on filedocumented in this encounter Care Teams Roller Varnisher Relationship Specialty Start Date End Date Sheeba Castillo, LITHOGRAPHIC GENERAL WORKER, POULTRY PATHOLOGIST PCP - General Nurse Practitioner 07/20/16 [address] [address] [place] [address] documented as of this encounter
--- OUTSIDE RECORDS SUMMARY | 2022-03-20 16:13 | XMS_ITS | Encounter Summary ---
:1975 Author Organization [employer] Address [address] [address] Care Team Providers Name Role Phone Sheeba Castillo APRN, CNP Primary Care Provider [phone] Reason for Visit Reason Comments Hospital Discharge Follow-up Encounter Details Date Type Department Care Team Description 08/04/2016 Office Visit Yolie Pinedayohannes Idania Ulcerativ e rectosigmoiditis with rectal bleeding (HRC) (Primary Dx); Pietro Barriga MD C. difficile colitis; [address] [place] [address] [place] [phone] Social History Tobacco Use Types Packs/Day Years [...] at Date Recorded Female 05/09/2021 7:19 PM QUALITY ASSURANCE COACH documented as of this encounter Last Filed Vital Signs Vital Sign Reading Time Taken Comments Blood Pressure 117/85 08/04/2016 1:40 PM QUALITY ASSURANCE COACH Pulse 107 08/04/2016 1:40 PM QUALITY ASSURANCE COACH Temperature 37 ??C (98.6 ??F) 08/04/2016 1:40 PM QUALITY ASSURANCE COACH Respiratory Rate - - Oxygen Saturation - - Inhaled Oxygen Concentration - - Weight 86.2 kg (190 lb) 08/04/2016 1:40 PM QUALITY ASSURANCE COACH Height - - Body Mass Index 30.44 07/17/2016 9:10 AM QUALITY ASSURANCE COACH documented in this encounter Progress Notes Idania Andrade MD - 08/04/2016 2:00 PM CST CLINIC VISIT NOTE SUBJECTIVE: Patient is a 41 y.o. female here today for She was hospitalized at [facility] July 25 through July 30 for ulcerative proctitis and C. diff colitis. She presented with abdominal pain and rectal bleeding and diarrhea CT abdomen and pelvis with IV contrast:?? Colitis in distribution atypical for ischemia, slightly increased compared to CT of 6 days prior. Flexible sigmoidoscopy showed mucosal congestion, erythema, eroded, friable, biopsies showed ulcerative colitis. Gastroenterology followed her inpatient. It was di fficult to tell which of her symptoms were due to C. diff versus proctitis. She was started on IV steroids with minimal improvement. She has a history of resistant C. diff infections. She was started on oral vancomycin and IV metronidazole in the ER. Metronidazole was discontinued 2 days prior to disch arge due to nausea. In the end, it was thought that most of her symptoms were due to proctitis. CRP was elevated to 13, 3.8 on discharge. White blood cells count was also elevated. She did have testingperformed for potential future immunologic biologic therapy.??She was started on a slow steroid and vancomycin taper and will be following up with GI in about 10 days from now. Since discharge, she hascontinued to have stool urgency, cramping, diarrhea. Continues to follow diet as prescribed by GI, that does not help. When she eats non approved food this does not worsen her sx. Through emailing with gastroenterology, she has started Proctosol enemas. HX melanoma so GI is presenting her case to see if biologic is feasible. WBC elevated d/t steroids. 40 daily prednisone still. Back on BP meds. No CP/SOB, calf pain. Occasional hot flash at night since starting prednisone. No further blood in stool. Continues on oral vanco. Past medical history, social history, family history, and medications were reviewed and updated as appropriate. OBJECTIVE: BP 117/85 mmHg Pulse 107 Temp(Src) 98.6 ??F (37 ??C) (Oral) Wt 190 lb (86.183 kg) LMP (LMP Unknown) Gen: NAD, alert HEENT: normocephalic, atraumatic, hearing grossly normal Heart: RRR, no murmur Lungs: CTAB, Good respiratory efforts. Abdomen: Soft, diffusely mildly tender to palpation. Psy: well groomed, Pleasant affect. ASSESSMENT/PLAN: Idania was seen today for hospital discharge follow-up. Diagnoses and all orders for this visit: Ulcerative rectosigmoiditis with rectal bleeding (HRC) C. difficile colitis Essential hypertension (HRC) Well controlled Other orders - hydrocortisone-pramoxine (PROCTOFOAM-HC) 1-1 % rectal foam; Insert 1 Applicator rectally two timesa day. TT 25, CT 20 CT was spent on counseling the patient on Reviewing chart with patient in the room including discharge summary, labs, recommendations, imaging. Completing paperwork with patient in the room for FMLA and return to work. Idania Andrade MD 2:00 PM 08/04/2016 Please note that parts of this document were created with voice recognition dictation. Typoraphical errors may result. ITY ASSURANCE COACH documented in this encounter Plan of Treatment Upcoming Encounters Date Type Specialty Care Team Description 05/05/2022 Appointment Chemo Therapy/Infusion Services 09/15/2022 Telemedicine Gastroenterology Euseibo Haines MD [address] [place], [place] [address] (Wo rk) documented as of this encounter Visit Diagnoses Diagnosis 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 C. difficile colitis Intestinal infection due to clostridium difficile Essential hypertension (HRC) Unspecified essential hypertension documented in this encounter Care Teams Chemical Engineering Technologist Relationship Specialty Start Date End Date Sheeba Castillo, UTILITY OPERATOR YARN, BONE DENSITY TECHNICIAN PCP - General Nurse Practitioner 07/20/16 [address] [address] [place] [id number] documented as of this encounter
--- OUTSIDE RECORDS SUMMARY | 2022-03-20 16:14 | XMS_ITS | Encounter Summary ---
:1975 Author Organization [employer] Address [address] [place] [address] Care Team Providers Name Role Phone Kinga Pickett APRN, CNP Primary Care Provider [phone] Encounter Details Date Type Department Care Team Description 05/29/2016 Lab Visit [facility] Abnormal weight gain [address] [place], [place] [address] Social History Tobacco Use Types Packs/Day Years [...] at Date Recorded Female 05/09/2021 7:19 PM CONSULTING SALES EXECUTIVE documented as of this encounter Plan of Treatment Upcoming Encounters Date Type Specialty Care Team Description 05/05/2022 Appointment Chemo Therapy/Infusion Services 09/15/2022 Telemedicine Gastroenterology Eusebio Haines MD [address] [place], [place] [address] (Wo rk) documented as of this encounter Procedures Procedure Name Priority Date/Time Associated Diagnosis Comme nts CORTISOL SALIVA Routine 05/29/2016 10:10 AM Abnormal weight ga in Results for this CONSULTING SALES EXECUTIVE procedure are i n the results section. documented in this encounter Results Cortisol Saliva (05/29/2016 10:10 AM CONSULTING SALES EXECUTIVE) P athologist Signature Saliva 1010 pm PN SOFT Collection Time Cortisol Saliva 0.065 ug/dL PN SOFT Comment: INTERPRETIVE INFORMATION: Cortisol, Sali va Effective 07/17/2005 For collection at 2300 hr. the normal co rtisol concentration is less than 0.112 ug/dL. ??Patients with Cushings Syndrome have concentrations of 0.112 ug/dL or greater. ? a.m. ([phone] ) ?p.m. (noon-1800) Males ??2.5-7 years ?? 0.034-0.645 ug/dL ?0.053-0.607 ug/dL ?? 8-11 years ?? 0.084-0.839 ug/dL ?less than 0.215 ug/dL ??12-18 years ?? 0.021-0.883 ug/dL ?less than 0.259 ug/dL ??19-30 years ?? 0.112-0.743 ug/dL ?less than 0.308 ug/dL ??31-50 years ?? 0.122-1.551 ug/dL ?less than 0.359 ug/dL ??51 and older ??0.112-0.812 ug/dL ?less than 0.228 ug/dL Females ??2.5-7 years ?? 0.034-0.645 ug/dL ?0.053-0.607 ug/dL ?? 8-11 years ?? 0.084-0.839 ug/dL ?less than 0.215 ug/dL ??12-18 years ?? 0.021-0.883 ug/dL ?less than 0.259 ug/dL ??19-30 years ?? 0.272-1.348 ug/dL ?less than 0.359 ug/dL ??31-50 years ?? 0.094-1.515 ug/dL ?less than 0.181 ug/dL ??51 and older ??0.149-0.739 ug/dL ?0.022-0.254 ug/dL Performed by [facility], [address] [place] [id number] [email or web address], Darrell Dee MD - Lab. Director Specimen Anatomical Collection Method Collection Time Receive d Time (Source) Location / / Volume Laterality 05/29/2016 10:10 05/30/2016 AM CONSULTING SALES EXECUTIVE 12:21 PM CONSULTING SALES EXECUTIVE Narrative PN SOFT - 06/01/2016 6:31 PM CONSULTING SALES EXECUTIVE Performed at [facility] [address] [place] [address] CLIA number [id number] La Mendosa MD LAB_1 Performing Organization Address City/State/[facility] Code Phon e Number PN SOFT [address] [place], [place] [address] [phone] documented in this encounter Visit Diagnoses Diagnosis Abnormal weight gain documented in this encounter Care Teams Patient Companion Relationship Specialty Start Date End Date Kinga Pickett APRN, BIOLOGICAL SCIENCES INSTRUCTOR PCP - General 03/15/15 07/04/16 [address] [place], [place] [id number] documented as of this encounter
--- OUTSIDE RECORDS SUMMARY | 2022-03-20 16:14 | XMS_ITS | Encounter Summary ---
:1975 Author Organization [employer] Address [address] [address] Care Team Providers Name Role Phone Sheeba Castillo APRN, EMERGENCY PREPAREDNESS MANAGER Primary Care Provider [phone] Reason for Visit Reason Onset Date Comments Symptoms 07/12/2016 Encounter Details Date Type Department Care Team Description 07/12/2016 Telephone [facility] erology Eileen Bernabe APRN, Symptoms [address] [place] [address] [phone] [place], [place] [address] (Wo rk) Social History [...] at Date Recorded Female 05/09/2021 7:19 PM BOAT CARPENTER MECHANIC documented as of this encounter Nursing Notes Manfred Azevedo RN - 07/13/2016 9:02 AM CST Called pt, cholecystectomy completed yesterday. Pt has had no symptoms for last 2 days. Wondering ifshe had flu and that accounted for symptoms. She experienced alternating between cold and hot, no appetite, diarrhea w/ blood (4-5 episodes/day). Had lower constant abdominal pain that has since subsided (other than surgery pain). Does use canasa. States did have US done while in ER on 07/05. Encouraged to call with return of symptoms. CARPENTER MECHANIC Eileen Bernabe APRN, SIERRA - 07/12/2016 4:50 PM CST Please call patient: surgeon doing cholecystectomy called and with info he gave me, I wonder if she is having a colitis flare. Get her symptoms, if she can sort them from the post op discomfort. We might need a CT. CARPENTER MECHANIC documented in this encounter Plan of Treatment Upcoming Encounters Date Type Specialty Care Team Description 05/05/2022 Appointment Chemo Therapy/Infusion Services 09/15/2022 Telemedicine Gastroenterology Eusebio Haines MD [address] [place], [place] [phone] (Wo rk) documented as of this encounter Visit Diagnoses Not on filedocumented in this encounter Care Teams Boat Assembler Relationship Specialty Start Date End Date Sheeba Castillo APRN, EMERGENCY PREPAREDNESS MANAGER PCP - General Nurse Practitioner 07/20/16 [address] [place] Dinh [phone] documented as of this encounter
--- OUTSIDE RECORDS SUMMARY | 2022-03-20 16:14 | XMS_ITS | Encounter Summary ---
:1975 Author Organization [facility] Address [address] [place] [address] Care Team Providers Name Role Phone Fernanda Lancaster PA-C Primary Care Provider Reason for Referral Procedure/Equipment (Routine) - Incomplete Specialty Diagnoses / Procedures Referred By Contact Refer red To Contact Procedures Dirk Rueda MD CT Abd Pelvis W IV Cont [address] Only [place], [place] [address] Referral ID Status Reason Start Date Expiration Date Visits V isits Requested Authorized [id number] Incomplete 07/19/2016 10/18/2017 1 1 HER OPERATOR Reason for Visit Reason Comments Abdominal Pain Nausea Encounter Details Date Type Department Care Team Description 07/19/2016 Emergency [facility] Alex Rueda MD Colitis; Center [address] [place] Elevated LFTs; [address] Hypokalemia; [place] [address] Hematochezia [address] [phone] Social History Tobacco Use Types Packs/Day Years [...] at Date Recorded Female 05/09/2021 7:19 PM BUNCHER OPERATOR documented as of this encounter Last Filed Vital Signs Vital Sign Reading Time Taken Comments Blood Pressure 132/83 07/19/2016 4:53 PM BUNCHER OPERATOR Pulse 112 07/19/2016 4:53 PM BUNCHER OPERATOR Temperature 36.6 ??C (97.9 ??F) 07/19/2016 11:44 AM BUNCHER OPERATOR Respiratory Rate 18 07/19/2016 11:44 AM BUNCHER OPERATOR Oxygen Saturation 95% 07/19/2016 4:53 PM BUNCHER OPERATOR Inhaled Oxygen Concentration - - Weight 88 kg (194 lb) 07/19/2016 11:44 AM BUNCHER OPERATOR Height - - Body Mass Index 31.08 07/17/2016 9:10 AM BUNCHER OPERATOR documented in this encounter Discharge Instructions Discharge InstructionsDirk Rueda MD - 07/19/2016 4:06 PM CST Colitis: Care Instructions Your Care Instructions Colitis is the medical term for swelling (inflammation) of the intestine. It can be caused by different things, such as an infection or loss of blood flow in the intestine. Other causes are problems like Crohn's disease or ulcerative colitis. Symptoms may include fever, diarrhea that may be bloody, or belly pain. Sometimes symptoms go away without treatment. But you may need treatment or more tests, such as blood tests or a stool test. Or you may need imaging tests like a CT scan or a colonoscopy. In some cases, the doctor may want to raissa sample of tissue from the intestine. This test is called a biopsy. The doctor has checked you carefully, but problems can develop later. If you notice any problems or new symptoms, get medical treatment right away. Follow-up care is a wilkins part of your treatment and safety. Be sure to make and go to all appointments, and call your doctor if you are having problems. It's also a good idea to know your test results and keep a list of the medicines you take. How can you care for yourself at home? ?? Rest until you feel better. ?? Your doctor may recommend that you eat bland foods. These include rice, dry toast or crackers, bananas, and applesauce. ?? To prevent dehydration, drink plenty of fluids. Choose water and other caffeine-free clear liquids until you feel better. If you have kidney, heart, or liver disease and have to limit fluids, talk with your doctor before you increase the amount of fluids you drink. ?? Be safe with medicines. Take your medicines exactly as prescribed. Call your doctor if you think you are having a problem with your medicine. You will get more details on the specific medicines yourdoctor prescribes. When should you call for help? Call 911 anytime you think you may need emergency care. For example, call if: ?? You passed out (lost consciousness). ?? You vomit blood or what looks like coffee grounds. ?? Your stools are maroon or very bloody. Call your doctor now or seek immediate medical care if: ?? You have new or worse pain. ?? You have a new or higher fever. ?? You have new or worse symptoms. ?? You cannot keep fluids or medicines down. Watch closely for changes in your health, and be sure to contact your doctor if: ?? You do not get better as expected. Where can you learn more? 1. Go to Staples/Snapsort or Upp[employer]/Seventymmrary. 2. Enter J212 in the search box. Current as of: May 14, 2015 Content Version: 11.0 ?? 3263-4356 [employer]. Discharge Instructions Abdominal Pain Abdominal pain can be caused by many things. Your evaluation today does not show the exact cause foryour pain. Your doctor today has decided that it is unlikely your pain is due to a life threatening problem, or a problem requiring surgery or hospital admission. Sometimes those problems cannot be found right away, so it is very important that you follow up as directed. Sometimes only the changes which occur over time allow the cause of your pain to be found. Return to the Emergency Department for a recheck in 8-12 hours if your pain continues. If your pain gets worse, changes in location, or feels different, return to the Emergency Department right away. ADULTS: Return to the Emergency Department right away if: ??? You get an oral temperature above 102oF or as directed by your doctor. ??? You have blood in your stools (bright red or black, tarry stools). ??? You keep throwing up or can???t drink liquids. ??? You see blood when you throw up. ??? You can???t have a bowel movement or you can???t pass gas. ??? Your stomach gets bloated or bigger. ??? Your skin or the whites of your eyes look yellow. ??? You faint. ??? You have bloody, frequent or painful urination. ??? You have new symptoms or anything that worries you. CHILDREN: Return to the Emergency Department right away if your child has any of the above-listed symptoms or the following: ??? Pushes your hand away or screams/cries when his/her belly is touched. ??? You notice your child is very fussy or weak. ??? Your child is very tired and is too tired to eat or drink. ??? Your child is dehydrated. Signs of dehydration can be: o Your infant has had no wet diapers in 4-5 hours. o Your older child has not passed urine in 6-8 hours. o Your or child starts to have dry mouth and lips, or no saliva or tears. WOMEN: Return to the Emergency Department right away if you have any of the above-listed symptoms or the following: ??? You have bleeding, leaking fluid or passing tissue from the vagina. ??? You have worse pain or cramping, or pain in your shoulder or back. ??? You have vomiting that will not stop. ??? You have painful or bloody urination. ??? You have a temperature of 100oF or more. ??? Your baby is not moving as much as usual. ??? You faint. ??? You get a bad headache with or without eye problems and abdominal pain. ??? You have a convulsion or seizure. ??? You have unusual discharge from your vagina and abdominal pain. Abdominal pain is pretty common during . Your pain may or may not be related to your . You should follow-up closely with your OB doctor so they can evaluate you and your baby. Until you follow-up with your regular doctor, do the following: ??? Avoid sex and do not put anything in your vagina. ??? Drink clear fluids. ??? Only take medications approved by your doctor. MORE INFORMATION: Appendicitis: A possible cause of abdominal pain in any person who still has their appendix is acuteappendicitis. Appendicitis is often hard to diagnose. Testing does not always rule out early appendicitis or other causes of abdominal pain. Close follow-up with your doctor and re-evaluations may be needed to figure out the reason for your abdominal pain. Follow-up: It is very important that you make an appointment with your clinic and go to the appointment. If you do not follow-up with your primary doctor, it may result in missing an important development which could result in permanent injury or disability and/or lasting pain. If there is any problemkeeping your appointment, call your doctor or return to the Emergency Department. Medications: Take your medications as directed by your doctor today. Before using rfti-lwx-vshzldt medications, ask your doctor and make sure to take the medications as directed. If you have any questions about medications, ask your doctor. Diet: Resume your normal diet as much as possible, but do not eat fried, fatty or spicy foods while you have pain. Do not drink alcohol or have caffeine. Do not smoke tobacco. Probiotics: If you have been given an antibiotic, you may want to also take a probiotic pill or eat yogurt with live cultures. Probiotics have good bacteria to help your intestines stay healthy. Studies have shown that probiotics help prevent diarrhea and other intestine problems (including C. diff infection) when you take antibiotics. You can buy these without a prescription in the pharmacy section of the store. Remember that you can always come back to the Emergency Department if you are not able to see your regular doctor in the amount of time listed above, if you get any new symptoms, or if there is anything that worries you. Hypokalemia: Care Instructions Your Care Instructions Hypokalemia (say ad-kr-zyn-ISREAL-dory-uh) is a low level of potassium. The heart, muscles, kidneys, and nervous system all need potassium to work well. This problem has many different causes. Kidney problems, diet, and medicines like diuretics and laxatives can cause it. So can vomiting or diarrhea. In some cases, cancer is the cause. Your doctor may do tests to find the cause of your low potassium levels. You may need medicines to bring your potassium levels back to normal. You may also need regular blood tests to check your potassium. If you have very low potassium, you may need intravenous (IV) medicines. You also may need tests to check the electrical activity of your heart. Heart problems caused by low potassium levels can be very serious. Follow-up care is a wilkins part of your treatment and safety. Be sure to make and go to all appointments, and call your doctor if you are having problems. It's also a good idea to know your test results and keep a list of the medicines you take. How can you care for yourself at home? ?? If your doctor recommends it, eat foods that have a lot of potassium. These include fresh fruits,juices, and vegetables. They also include nuts, beans, and milk. ?? Be safe with medicines. If your doctor prescribes medicines or potassium supplements, take them exactly as directed. Call your doctor if you have any problems with your medicines. ?? Get your potassium levels tested as often as your doctor tells you. When should you call for help? Call 911 anytime you think you may need emergency care. For example, call if: ?? You feel like your heart is missing beats. Heart problems caused by low potassium can cause . ?? You passed out (lost consciousness). ?? You have a seizure. Call your doctor now or seek immediate medical care if: ?? You feel weak or unusually tired. ?? You have severe arm or leg cramps. ?? You have tingling or numbness. ?? You feel sick to your stomach, or you vomit. ?? You have belly cramps. ?? You feel bloated or constipated. ?? You have to urinate a lot. ?? You feel very thirsty most of the time. ?? You are dizzy or lightheaded, or you feel like you may faint. ?? You feel depressed, or you lose touch with reality. Watch closely for changes in your health, and be sure to contact your doctor if: ?? You do not get better as expected. Where can you learn more? 1. Go to Staples/Snapsort or Upp[employer]/SeventymmraGreenVolts. 2. Enter G358 in the search box. Current as of: May 14, 2015 Content Version: 11.0 ?? [id number] [employer]. HER OPERATOR documented in this encounter Medications at Time of Discharge Medication Sig Dispensed Refills Start Date End Date Calcium Carbonate Take by mouth. 0 02/15/2012 Antacid 1000 MG Reported on 08/14/2016 Multiple Vitamin Take 1 tablet by 0 11/14/2011 (MULTI-VITAMIN OR) mouth daily (every 24 hours). amitriptyline TAKE 1-2 TABLETS BY 180 tablet 3 12/23/2015 (ELAVIL) 25 MG MOUTH NIGHTLY. tablet dicyclomine (BENTYL) Take 1 tablet by 360 tablet 3 6 07/24/2016 20 MG tablet mouth 4 times daily as needed. HYDROcodone-acetamin Take 1-2 Tabs by 25 Tab 0 7 07/25/2016 ophen (NORCO) 5-325 mouth every 4 hours MG tablet as needed for Pain. Maximum acetaminophen dose is 4000 mg in 24 hours. mesalamine (CANASA) Place 1 suppository 30 suppository 11 07/30/2016 1000 MG suppository rectally nightly. mesalamine (LIALDA) 4.8gm daily, 120 tablet 11 10/04/201510/2016 1.2 G enteric coated starting when the tablet prednisone dose is weaned to 20mg. norethindrone-eth Take 1 tablet by 112 tablet 4 11/24/2015 0 11/21/2016 estradiol mouth daily (every (NORINYL,ORTHONOVUM) 24 hours). PATIENT 1-35 MG-MCG tablet TAKES CONTINOUSLY potassium chloride Take 1 Tab by mouth 30 Tab 0 07/13/19 17 07/30/2016 (K-DUR,KLOR-CONM) 20 daily. MEQ tabletIndications: Acute hypokalemia promethazine Take 1 Tab by mouth 20 Tab 0 07/17/2016 (PHENERGAN) 25 MG every 6 hours as tabletIndications: needed for Nausea. Nausea topiramate (TOPAMAX) Take 0.5 Tabs by 90 Tab 1 7 07/25/2016 25 MG tablet mouth two times a day. triamterene-hydrochl Take 1 tablet by 90 tablet 4 6 04/25/2017 orothiazide mouth daily (every (MAXZIDE-25) 37.5-25 24 hours). MG tabletIndications: Essential hypertension (HRC) documented as of this encounter ED Notes Matilde Collins RN - 07/19/2016 5:00 PM CST [facility] ED Nursing Discharge Note Patient discharged: to Home. Patient accompanied by: Friend, boyfriend is picking pt up. Transported by: Walked Valuables were taken home by patient: Yes Work/School Slip given: No Discharge instructions given and explained to patient: Yes Discharge prescriptions explained to patient: No Patient verbalized understanding. Yes Patient level of pain on discharge: 07/04 Patients condition on discharge related to chief complaint and treatment in ED: Follow up with GI in2 days. Pt agrees with discharge plan. BP 132/83 mmHg Pulse 112 Temp(Src) 36.6 ??C (97.9 ??F) (Oral) Resp 18 Wt 87.998 kg (194 lb) SpO2 95% Matilde Collins RN 5:01 PM 07/19/2016 ---End of Report--- HER OPERATOR Matilde Collins RN - 07/19/2016 2:05 PM CST Prior to administering medication, Idania Duarte was informed of which medication(s) they were about to receive and their associated side effects including impairing their ability to drive and the need to have a ride home with a responsible alliance party. HER OPERATOR Dirk Rueda MD - 07/19/2016 12:10 PM CST Chief Complaint: Abdominal Pain HPI: Idania Duarte is a 41 y.o. female with a history of ulcerative colitis and C. Diff colitis, statuspost cholecystectomy on 07/12 who presents to the emergency center for evaluation of abdominal pain. The patient reports her surgery was otherwise uncomplicated, but on 07/15 began developing umbilical abdominal pains with nausea. The pain is typically at a 5/10 with intermittent sharp spasms, which areoften associated with vomiting and diarrhea. Patient does have ulcerative colitis, with intermittentbloody stool since last spring, but now notes an increased amount of blood in her stool for the pastseveral days as well. She additionally reports ongoing fevers up to 101 for the last four days. Initially seen at urgent care, referred here for further evaluation. She did not take pain medication as she drove here. Medications: Maxzide Topamax Phenergan KCl Norinyl, Orthonovum Lialda Canasa [place] Bentyl Elavil Allergies: The patient has no known drug allergies on file. Past Medical History: C. Diff colitis Obesity Hypertension Basal cell carcinoma of leg Melanoma of trunk Chronic headaches IBS Concussion Past Surgical History: Tonsillectomy Left wrist cyst removal Lap cholecystectomy Family History: The patient has no past pertinent family history. Social History: The patient is single, is a former cigarette smoker (0.25 ppd), for 15 years, and rarely drinks alcohol. Review of Systems Constitutional: Positive for fever. Gastrointestinal: Positive for nausea, vomiting, abdominal pain, diarrhea and blood in stool. All other systems reviewed and are negative. Physical Exam Vitals: BP 139/92 mmHg Pulse 120 Temp(Src) 36.6 ??C (97.9 ??F) (Oral) Resp 18 Wt 87.998 kg (194 lb) SpO2 98% Constitutional: Adult patient sitting on the bed. HEENT: Pupils equal, round, and reactive to light, conjunctiva is normal, no scleral icterus present. Nose is normal. Oropharynx is without erythema or exudate and is moist. Neck: Supple. Cardiovascular: Normal rate, regular rhythm, no murmur/rub/gallop is present. Radial pulses and DP pulses 2+ and symmetric bilaterally. Pulmonary/Chest Wall: Lungs are clear to auscultation bilaterally. No chest wall tenderness present. Abdomen: Soft, non-distended, bowel sounds are normal. Suprapubic and left lower quadrant tenderness present. No rebound or guarding present. Musculoskeletal: Warm and well-perfused. No CVA tenderness. No lower extremity edema or calf tenderness. Neurologic: The patient is alert and oriented. CN II-XII intact. Moves all 4 extremities spontaneously. Sensation to light touch intact in all 4 extremities. Skin: Warm and dry. Abd incisions closed with steristrips c/d/i. Psychiatric: Cooperative. Procedures: None Imaging: CT Abdomen and Pelvis w/ IV contrast only: Moderate wall thickening and pericolonic inflammation andvascular engorgement involving the colon from the level of the mid ascending colon to the distal descending colon. Findings compatible with nonspecific colitis. No free air, pneumatosis, or portal venous gas and no free fluid or fluid collections. No acute findings otherwise. Report per Radiology. Laboratory: CBC + Differential: WBC 16.7 (H), HGB 15.9 (H), Hematocrit 45.4 (WNL), Platelet 515 (H), Ajxgqliicex66.9 (H), Monocytes 1.1 (H), Granulocytes 1.5 (H), o/w WNL BMP: Cr 1.01 (WNL), Glu 103 (H), K 3.1 (L), o/w WNL Anion Gap: 12 HFP: Alk Phos 174 (H), Albumin 2.9 (H), AST 54 (H), ALT 62 (H), o/w WNL Lipase: 129 (H) Lactate (12:21): 1.8 (WNL) Quantitative HCG: Negative Stool Culture: Pending C Difficile Toxin: Negative ED Course: Interventions and Timeline: 12:15 History and old charts reviewed. I evaluated the patient here in the emergency department in room B07. 13:08 NS 1,000 mL IV bolus 14:03 Zofran 4 mg IV injection 14:05 Dilaudid 0.5 mg IV injection Course Summary: Nursing notes, vitals, and past medical records were reviewed. I performed an exam of the patient asdetailed above. Patient placed on continuous pulse oximetry. IV inserted, Blood was drawn. I orderedthe above . Findings and plan explained to the patient. I fully addressed and answered all questionsand concerns the patient had. The patient was discharged home with discharge instructions, status improved, and will follow up with her primary care physician and GI. Vital Signs: Initial Vitals: Triage Vitals Temp 07/19/16 1144 36.6 ??C (97.9 ??F) Temp src 07/19/16 1144 Oral Pulse 07/19/16 1144 120 Resp 07/19/16 1144 18 BP 07/19/16 1144 139/92 mmHg SpO2 07/19/16 1144 98 % Repeat Vitals: Filed Vitals: 07/19/16 1411 07/19/16 1431 07/19/16 1501 07/19/16 1517 BP: 154/90 143/127 129/93 Pulse: 113 109 111 110 Temp: TempSrc: Resp: Weight: SpO2: 97% 98% 97% 95% Last ED Vitals: Temp: 36.6 ??C (97.9 ??F) (07/19 1144) Temp src: Oral (07/19 1144) Pulse: 110 (07/19 1517) Resp: 18 (07/19 1144) BP: 129/93 mmHg (07/19 1501) SpO2: 95 % (07/19 1517) Impression and Plan: 41 year old female seen here for abdominal pain, nausea, vomiting and bloody diarrhea. Here she is tender in her low abdomen. She is post op from a lap cholecystectomy, she has mild elevation in her LFT's. Her incisions look good. I discussed this case with surgery. They will get her followed up closely with surgery service, but she has no tenderness in the right upper quadrant and no inflammation around the surgical site, so this is less likely to a surgical complication. She has known history of ulcerative colitis, it has really been more a proctitis in the past. She has a leukocytosis and she istachycardic. CT scan does reveal a more diffuse colitis. I discussed this case with GI, they recommended holding off on antibiotics and steroids until we get the stool culture back to ensure that we are not treating more of an infectious cause of this. Her C. Diff is notably negative. The patient is feeling much better. She is up and ambulatory and tolerating PO's. I gave her the option for admissionfor symptom control. She understands that her labs and vitals are abnormal but since she feels good,an OP course is reasonable as long as she returns immediately if she worsens. She has pain medication and nausea medication at home to use. She will f/u closely as an outpatient with her primary care physician and GI within 48 hours. Red flags for worsening were discussed. Diagnosis: Final diagnoses: [K52.9] Colitis [R79.89] Elevated LFTs [E87.6] Hypokalemia [K92.1] Hematochezia Sergio Maradiaga, am serving as a scribe to document services personally performed by Dirk Rueda MD, based on my observations and the provider's statements to me. 07/19/2016 [facility] Dirk Rueda MD 07/19/162020 HER OPERATOR documented in this encounter Plan of Treatment Upcoming Encounters Date Type Specialty Care Team Description 05/05/2022 Appointment Chemo Therapy/Infusion Services 09/15/2022 Telemedicine Gastroenterology Eusebio Haines MD [address] [place] [address] (Wo rk) documented as of this encounter Procedures Procedure Name Priority Date/Time Associated Comments Diagnosis CT ABD PELVIS W IV STAT 07/19/2016 1:57 PM Res ults for this CONT ONLY BUNCHER OPERATOR procedure are i n the results section. C.DIFFICILE STAT 07/19/2016 1:06 PM Results f or this TOXIN,MOLECULAR BUNCHER OPERATOR procedure ar e in DETECTION the results section. STOOL CULTURE STAT 07/19/2016 1:06 PM Results for this BUNCHER OPERATOR procedure are i n the results section. LACTATE REFLEX PANEL STAT 07/19/2016 12:21 Res ults for this PM BUNCHER OPERATOR procedure are i n the results section. EMERGENCY CENTER DRAW STAT 07/19/2016 12:21 Re sults for this AND HOLD PM BUNCHER OPERATOR procedure are i n the results section. ANION GAP STAT 07/19/2016 12:21 Results for this PM BUNCHER OPERATOR procedure are i n the results section. COMPLETE BLOOD STAT 07/19/2016 12:21 Results f or this COUNT-W/DIFF PM BUNCHER OPERATOR procedure are i n the results section. LIVER PANEL(HEPATIC STAT 07/19/2016 12:21 Resu lts for this FUNCTION PANEL) PM BUNCHER OPERATOR procedure ar e in the results section. BASIC METABOLIC PANEL STAT 07/19/2016 12:21 Re sults for this PM BUNCHER OPERATOR procedure are i n the results section. DIFFERENTIAL STAT 07/19/2016 12:21 Results for this PM BUNCHER OPERATOR procedure are i n the results section. HCG,QUALITATIVE, STAT 07/19/2016 12:21 Results for this SERUM PM BUNCHER OPERATOR procedure ar e in the results section. LIPASE STAT 07/19/2016 12:21 Results for this PM BUNCHER OPERATOR procedure are i n the results section. documented in this encounter Results CT Abd Pelvis W IV Cont Only (07/19/2016 1:57 PM BUNCHER OPERATOR) Anatomical Region Laterality Modality Abdomen, Pelvis Computed Tomography Specimen (Source) Anatomical Collection Method Collection Time Re ceived Time Location / / Volume Laterality 07/19/2016 1:42 PM BUNCHER OPERATOR Impressions 07/19/2016 2:10 PM BUNCHER OPERATOR IMPRESSION: ?? 1. Moderate wall thickening and pericolo robinson inflammation and vascular engorgement involving the colon from the level of the mid ascending colon to the distal descending colon. Findings compatible with n onspecific colitis. No free air, pneumat osis, or portal venous gas and no free fluid or fluid collections. 2. No acute findings otherwise. Narrative 07/19/2016 2:10 PM BUNCHER OPERATOR COMPARISON: ??None. TECHNIQUE: ??Images were obtained throug h the abdomen and pelvis following the administration of ??75 mL IOPAMIDOL 61 % IV SOLN contrast. FINDINGS: Subcentimeter hypodense lesion in the inferior spleen on slice 27 is too small to further characterize although the majority of splenic lesions are benign. The solid abdominal organs are other ibarra unremarkable. There is diffuse wall thickening of the colon from the level of the mid ascending colon through the distal descending colon. There is mild pericolonic inflammation and vascular engorg ement involving the section of the colon as well. There is no pneumatosis, free air, or portal venous gas. Normal appendix. There are several upper normal size lymph nodes in the mesentery of the mid an d lower abdomen which are nonspecific al though most likely reactive. No free fluid or fluid collections. Uterus and ovaries are grossly unremarkable. ??No acute findings otherwise. Procedure Note Yobany Light MD - 07/19/2016 COMPARISON: None. TECHNIQUE: Images were obtained [...] the colon as well. There is no pneumatos is, free air, or portal venous gas. Normal appendix. There are several upper normal size lymph nodes in the mesentery of the mid and lower abdomen which are nonspecific although most likely reactive. No free fluid or f luid collections. Uterus and ovaries are grossly unremarkable. No acute findings otherwise. IMPRESSION IMPRESSION: 1. Moderate wall thickening and pericolo robinson inflammation and vascular engorgement involving the colon from the level of the mid ascending colon to the distal descending colon. Findings compatible with nonspecific colitis. No free air, pneumatosis, or po rtal venous gas and no free fluid or fluid collections. 2. No acute findings otherwise. Dirk Rueda MD RAD CT Stool Culture (07/19/2016 1:06 PM BUNCHER OPERATOR) Component Value Ref Test Analysis Performed At [facility] [email or web address] Range Method Time Signature Source Stool PN SOFT Site PN SOFT Stool Culture No Salmonella, Shigella, Campylobacter or E. coli 0157: H7 PN SOFT Isolated No Aeromonas or Plesiomonas Isolated Shigatoxin Negative for PN SOFT Enzyme Shiga Toxin 1 ImmunoAssay and Shiga Toxin 2 Specimen (Source) Anatomical Collection Method Collection Time Re ceived Time Location / / Volume Laterality 07/19/2016 1:06 PM BUNCHER OPERATOR Narrative PN SOFT - 07/22/2016 10:19 AM BUNCHER OPERATOR Performed at [facility], [address] [place] [id number], CLIA Number [id number] Dirk Rueda MD LAB_1 Performing Organization Address City/State/ZIP Code Phon e Number PN SOFT [address] [place] [address] C.Difficile Toxin,Molecular Detection, (07/19/2016 1:06 PM BUNCHER OPERATOR) [facility] [email or web address] Method Time Signature Clostridium Negative PN SOFT difficile PCR Comment: Reference Range: ??Negative Method description (GeneXpert): Rapid, real-time PCR assay to detect tcd B (the Clostridium difficile toxin B gene) in human liquid or soft stools. Specimen Anatomical Collection Method Collection Time Receive d Time (Source) Location / / Volume Laterality 07/19/2016 1:06 PM 7 1:09 BUNCHER OPERATOR PM BUNCHER OPERATOR Narrative PN SOFT - 07/19/2016 2:10 PM BUNCHER OPERATOR Performed at [place] [id number] [place] [address] CLIA number [id number] Dirk Rueda MD LAB_1 Performing Organization Address City/State/ZIP [facility] Phon e Number PN SOFT [address] [place] [address] (ABNORMAL) Liver Panel(Hepatic Function Panel) (07/19/2016 12:21 PM BUNCHER OPERATOR) Patholo gist Method Time Signature Alk Phos 174 (H) 40 - 150 PN SOFT U/L Bilirubin Total 0.4 0.2 - 1.2 PN SOFT mg/dL Bilirubin, Direct 0.2 0.0 - 0.5 PN SOFT mg/dL Protein Total, Serum 7.2 6.4 - 8.3 PN SOFT g/dL Albumin 2.9 (L) 3.4 - 5.0 PN SOFT g/dL Aspartate 54 (H) 10 - 40 PN SOFT Aminotransferase U/L Alanine 62 (H) 9 - 55 PN SOFT Aminotransferase U/L Specimen Anatomical Collection Method Collection Time Receive d Time (Source) Location / / Volume Laterality 07/19/2016 12:21 07/19/2016 PM BUNCHER OPERATOR 12:31 PM BUNCHER OPERATOR Narrative PN SOFT - 07/19/2016 1:08 PM BUNCHER [place]PER[place] [address] CLIA number [id number] .Collection has been rescheduled by HEITE at 07/19/2016 12:23. Reason: ?rn .draw Eusebio Valero MD LAB_1 Performing Organization Address City/[facility] Phon e Number PN SOFT [address] [place] [address] (ABNORMAL) Lipase (07/19/2016 12:21 PM BUNCHER OPERATOR) P athologist Signature Lipase 129 (H) 8 - 78 U/L PN SOFT Specimen Anatomical Collection Method Collection Time Receive d Time (Source) Location / / Volume Laterality 07/19/2016 12:21 07/19/2016 PM BUNCHER OPERATOR 12:31 PM BUNCHER OPERATOR Narrative PN SOFT - 07/19/2016 1:08 PM BUNCHER [place]PER[place] [address] CLIA number [id number] .Collection has been rescheduled by HEITE at 07/19/2016 12:23. Reason: ?rn .draw Eusebio Valero MD LAB_1 Performing Organization Address [facility] Phon e Number PN SOFT [address] [place] [address] HCG, Qualitative, Serum (07/19/2016 12:21 PM BUNCHER OPERATOR) athologist Signature Serum Negative PN SOFT Test [...] Time (Source) Location / / Volume Laterality 07/19/2016 12:21 07/19/2016 PM BUNCHER OPERATOR 12:32 PM BUNCHER OPERATOR Narrative PN SOFT - 07/19/2016 12:51 PM BUNCHER OPERATOR Performed at [facility], [facility] [place] [address] CLIA number [id number] Dirk Rueda MD LAB_1 Performing Organization Address [facility] Phon e Number PN SOFT [address] [place] [address] (ABNORMAL) Differential (07/19/2016 12:21 PM BUNCHER OPERATOR) [facility] Method Time Signature Absolute 11.9 (H) 1.8 - 8.0 PN SOFT Neutrophils k/cmm Absolute 2.8 1.1 - 4.0 PN SOFT Lymphocytes k/cmm Absolute 1.1 (H) 0.2 - 0.8 PN SOFT Monocytes k/cmm Absolute 0.5 0.0 - 0.5 PN SOFT Eosinophils k/cmm Absolute 0.1 0.0 - 0.2 PN SOFT Basophils k/cmm Immature 1.5 (H) 0.0 - 0.5 PN SOFT Granulocytes % Specimen Anatomical Collection Method Collection Time Receive d Time (Source) Location / / Volume Laterality 07/19/2016 12:21 07/19/2016 PM BUNCHER OPERATOR 12:31 PM BUNCHER OPERATOR Narrative PN SOFT - 07/19/2016 12:40 PM BUNCHER OPERATOR Performed at [address] [address] CLIA number [id number] .Collection has been rescheduled by HEITE at 07/19/2016 12:23. Reason: ?rn .draw Eusebio Valero MD LAB_1 Performing Organization Address [facility] e Number PN SOFT [address] [place] [address] Anion Gap (07/19/2016 12:21 PM BUNCHER OPERATOR) P athologist Signature ANION GAP 12 0 - 16 mEq/L PN SOFT Specimen Anatomical Collection Method Collection Time Receive d Time (Source) Location / / Volume Laterality 07/19/2016 12:21 07/19/2016 PM BUNCHER OPERATOR 12:31 PM BUNCHER OPERATOR Narrative PN SOFT - 07/19/2016 1:08 PM BUNCHER OPERATOR Performed at [address] [address] CLIA number [id number] .Collection has been rescheduled by HEITE at 07/19/2016 12:23. Reason: ?rn .draw Eusebio Valero MD LAB_1 Performing Organization Address [facility] e Number PN SOFT [address] [place] [address] Lactate Reflex Panel (07/19/2016 12:21 PM BUNCHER OPERATOR) P athologist Signature Lactate, Plasma 1.8 0.3 - 1.9 PN SOFT mmol/L Comment: Performed at [address] [address] CLIA#[id number] Specimen Anatomical Collection Method Collection Time Receive d Time (Source) Location / / Volume Laterality 07/19/2016 12:21 07/19/2016 PM BUNCHER OPERATOR 12:31 PM BUNCHER OPERATOR Narrative PN SOFT - 07/19/2016 12:47 PM BUNCHER OPERATOR .Collection has been rescheduled by HEIT E at 07/19/2016 12:23. Reason: ?rn .draw Eusebio Valero MD LAB_1 Performing Organization Address [facility] Phon e Number PN SOFT [address] [place] [address] (ABNORMAL) Complete Blood Count-W/Diff (07/19/2016 12:21 PM BUNCHER OPERATOR) [facility] gist Method Time Signature White Blood Cell 16.7 (H) 3.8 - 11.0 PN SOFT Count k/cmm Red Blood Cell 5.16 3.70 - PN SOFT Count 5.20 m/cmm Hemoglobin 15.9 (H) 11.8 - PN SOFT 15.5 g/dL Hematocrit 45.4 35.0 - PN SOFT 46.0 % Mean Corpuscular 88.0 80.0 - PN SOFT Volume 100.0 fL RDW 12.7 11.0 - PN SOFT 15.0 % Platelet Count 515 (H) 140 - 450 PN SOFT k/cmm Specimen Anatomical Collection Method Collection Time Receive d Time (Source) Location / / Volume Laterality 07/19/2016 12:21 07/19/2016 PM BUNCHER OPERATOR 12:31 PM BUNCHER OPERATOR Narrative PN SOFT - 07/19/2016 12:39 PM BUNCHER OPERATOR Performed at [facility], [address] [place] [address] CLIA number [id number] .Collection has been rescheduled by AIMEE at 07/19/2016 12:23. Reason: ?rn .draw Eusebio Valero MD LAB_1 Performing Organization Address [facility] Phon e Number PN SOFT [address] [place] [address] (ABNORMAL) Basic Metabolic Panel (07/19/2016 12:21 PM BUNCHER OPERATOR) athologist Signature Creatinine 1.01 0.55 - PN SOFT Serum 1.02 mg/dL Lab Glucose 103 (H) 70 - 100 PN SOFT mg/dL Comment: The stated glucose range is for the fast ing state. Non-fasting glucose range is 70-180 mg/d L CO2 25 22 - 31 mmol/L PN SOFT Chloride 101 98 - 109 mmol/L PN SOFT Potassium 3.1 (L) 3.5 - 5.2 mmol/L PN SOFT Sodium 138 136 - 145 mmol/L PN SOFT Blood Urea Nitrogen <10 9 - 26 mg/dL PN SOFT Calcium 9.2 8.4 - 10.2 mg/dL PN SOFT Est [...] Time (Source) Location / / Volume Laterality 07/19/2016 12:21 07/19/2016 PM BUNCHER OPERATOR 12:31 PM BUNCHER OPERATOR Narrative PN SOFT - 07/19/2016 1:08 PM BUNCHER [place]PERATOR [place] [address] CLIA number [id number] .Collection has been rescheduled by HEITE at 07/19/2016 12:23. Reason: ?rn .draw Eusebio Valero MD LAB_1 Performing Organization Address City/[facility] Phon e Number PN SOFT [address] [place] [address] Emergency Center Draw And Hold (07/19/2016 12:21 PM BUNCHER OPERATOR) athologist Signature Emergency Drawn PN SOFT Center Draw And Hold Extra Lavender Drawn PN SOFT Top Drawn Extra PST Top Drawn PN SOFT Drawn Extra SST Top Drawn PN SOFT Drawn Specimen Anatomical Collection Method Collection Time Receive d Time (Source) Location / / Volume Laterality 07/19/2016 12:21 07/19/2016 PM BUNCHER OPERATOR 12:31 PM BUNCHER OPERATOR Narrative PN SOFT - 07/19/2016 5:06 PM BUNCHER OPERATOR Performed at [place] [address] CLIA number [id number] .Collection has been rescheduled by HEITE at 07/19/2016 12:23. Reason: ?rn .draw Eusebio Valero MD LAB_1 Performing Organization Address [facility] Phon e Number PN SOFT [address] [place] [address] documented in this encounter Visit Diagnoses Diagnosis Colitis Other and unspecified noninfectious mónica roenteritis and colitis Elevated LFTs Other abnormal blood chemistry Hypokalemia Hypopotassemia Hematochezia Blood in stool Triage Assessment Note - Kiley Tracy RN - 07/19/2016 11:39 AM BUNCHER OPERATOR Patient ambulatory to triage. C/o abd pain and N/V. She is s/p cholecystectomy on 07/12/16 for biliary colic. PT reports surgery went fine. 4-5 days ago she started having pain around the umbilicus. Then noted loose stool, vomiting and fever. Fever has been steady X 4 days, up to 101F. Has noted blood in stool. Does have history of colitis, but says that the stool is much more frequent (10 stools this AM) and having increased amounts of blood. Has been using zofran 4mg for nausea--last took 1000 (declines additional dose now). Using tylenol and motrin for fever and pain. Last took motrin at 0800. Also took bentyl at that time. Reports continuously having dry heaves despite taking zofran. Tachycardic in triage. HER OPERATOR documented in this encounter Administered Medications Inactive Administered Medications - up to 3 most recent administrations Medication Order MAR Action Action Date Dose Rate Site 0.9% sodium chloride bolus 1,000 Started 07/19/2016 1:08 PM BUNCHER OPERATOR 1, 000 mL mL 1,000 mL, Intravenous, Administer over 0.6 Hours, ONCE, On Sun07/19/16 at 1245, For 1 dose HYDROmorphone injectable 0.5 mg Given 07/19/2016 2:05 PM BUNCHER OPERATOR 0.5 mg 0.5 mg, Intravenous, ONCE, On Sun07/19/16 at 1400, For 1 dose iopamidol (ISOVUE-300) 61 % injection 75 mL Given 07/19/2016 2:00 PM BUNCHER OPERATOR 75 mL 75 mL, Intravenous, ONCE, On Sun07/19/16 at 1400, For 1 dose, Radiology ondansetron (ZOFRAN) injection 4 mg Given 07/19/2016 2:03 PM BUNCHER OPERATOR 4 mg 4 mg, Intravenous, ONCE, On Sun07/19/16 at 1400, For 1 dose potassium chloride SA (KLOR-CON) controlled Given 07/19/2016 4:53 PM BUNCHER OPERATOR 40 mEq release tablet 40 mEq 40 mEq, Oral, ONCE, On Sun07/19/16 at 1630, For 1 dose sodium chloride 0.9% injection 10 mL Given 07/19/2016 2:00 PM BUNCHER OPERATOR 10 mL 10 mL, Intravenous, ONCE, On Sun07/19/16 at 1400, For 1 dose, Radiology sodium chloride 0.9% injection 10-60 mL Given 07/19/2016 1:08 PM BUNCHER OPERATOR 10 mL 10-60 mL, Intravenous, PRN, Line Patency, Line Care, Starting on Sun07/19/16 at 1145, Until Sun07/19/16 at 1902, For 8 hours documented in this encounter Active and Recently Administered Medications Times are shown in BUNCHER OPERATOR. Scheduled Medication Order 07/17/2016 07/18/2016 07/19/2016 0.9% sodium chloride bolus 1,000 mL (COMPLETED) 1308 (Started - Provider: Matilde Collins RN)1430 (Infused - Provider: Matilde Collins RN) 1,000 mL, Intravenous, for 0.6 Hours, ONCE, Sun07/19/16 at 1245, For 1 dose HYDROmorphone injectable 0.5 mg (COMPLETED) 1405 (Given - Provider: Matilde Collins RN) 0.5 mg, Intravenous, ONCE, Sun07/19/16 at 1400, For 1 dose iopamidol (ISOVUE-300) 61 % injection 75 mL (COMPLETED) 1400 (Given - Provider: Idania Erickson - Comment: [id number]) 75 mL, Intravenous, ONCE, Sun07/19/16 at 1400, For 1 dose, Radio logy ondansetron (ZOFRAN) injection 4 mg (COMPLETED) 1403 (Given - Provider: Matilde Collins RN) 4 mg, Intravenous, ONCE, Sun07/19/16 at 1400, For 1 dose potassium chloride SA (KLOR-CON) controlled release tablet 40 mE q (COMPLETED) 1653 (Given - Provider: Matilde Collins RN) 40 mEq, Oral, ONCE, Sun07/19/16 at 1630, For 1 dose sodium chloride 0.9% injection 10 mL (COMPLETED) 1400 (Given - Provider: Idania Erickson) 10 mL, Intravenous, ONCE, 07/19/16 at 1400, For 1 dose, Radio logy PRN Medication Order 07/17/2016 07/18/2016 07/19/2016 sodium chloride 0.9% injection 10-60 mL (CANCELED) 1308 (Given - Provider: Matilde Collins RN) 10-60 mL, Intravenous, PRN, Line Patency , Line Care, Starting 07/19/16 at 1145, For 8 hours documented in this encounter Care Teams Log Raft Worker Relationship Specialty Start Date End Date Fernanda Lancaster PA-C PCP - General Physician Steel Construction Worker 07/18/16 07/19/16 [address] [place] [address] documented as of this encounter
--- OUTSIDE RECORDS SUMMARY | 2022-03-20 16:14 | XMS_ITS | Encounter Summary ---
:1975 Author Organization [employer] Address [address] [address] Care Team Providers Name Role Phone Found, No Pcp Primary Care Provider Unavailable Reason for Visit Reason Comments Preop Exam dos 07/12/16 gallbladder Encounter Details Date Type Department Care Team Description 07/11/2016 Pre-Op Visit [facility] Regina Lori Acute hypokalemia Medicine R, DO (Primary Dx) [address] [place] [address] [id number] Social History Tobacco Use Types Packs/Day Years [...] Date Recorded Female 05/09/2021 7:19 PM DOCUMENT PROCESSOR documented as of this encounter Last Filed Vital Signs Vital Sign Reading Time Taken Comments Blood Pressure 113/81 07/11/2016 10:31 AM DOCUMENT PROCESSOR Pulse 110 07/11/2016 10:31 AM DOCUMENT PROCESSOR Temperature 37.4 ??C (99.3 ??F) 07/11/2016 10:29 AM DOCUMENT PROCESSOR Respiratory Rate - - Oxygen Saturation - - Inhaled Oxygen Concentration - - Weight 89.8 kg (198 lb) 07/11/2016 10:29 AM DOCUMENT PROCESSOR Height 167.6 cm (5' 6) 07/11/2016 10:29 AM DOCUMENT PROCESSOR Body Mass Index 31.96 07/11/2016 10:29 AM DOCUMENT PROCESSOR documented in this encounter Patient Instructions Patient InstructionsLori Tapia DO - 07/11/2016 10:53 AM CST Stop phentermine and Monster drinks. Take potassium supplement tonight and tomorrow. Hold triamterene-hctz morning of surgery. Ok to take other meds with sips of water. - Do not eat anything after midnight the evening before your surgery. - It is OK to drink water or Gatorade up to 4 hours before your surgery. - You may take medicines before surgery with a small sip of water MENT PROCESSOR documented in this encounter OR Notes H&P - Lori Tapia DO - 07/11/2016 10:37 AM CST PREOPERATIVE ASSESSMENT Date of Service: 07/11/2016 Date of : 1975 Age: 41 y.o. Sex: female Preoperative Evaluation completed by: Lori Tapia DO Primary care physician: No PCP Found, None CHIEF COMPLAINT Pre-Operative Evaluation ANTICIPATED PROCEDURE Laparoscopic cholecystectomy HISTORY OF PRESENT ILLNESS 41 yo female PMH of IBS, HTN, and headaches who has had 2 weeks of RUQ abdominal pain. US confirmed cholelithiasis. Underwent EGD 07/06/16 which showed gastritis - path pending; h.pylori neg. Pt saw Surgery and found to be candidate for cholecystectomy. Risk Factors/Review of Systems: (Please see flowsheets for details) Cardiovascular risks negative except for: HTN: Renal risks negative except for: Chronic Diuretic Use: Neuro risks negative except for: GI risks negative except for: Pulmonary risks negative except for: Endocrine/Nutrition risks negative except for: Hematologic Disease risks negative except for: Musculoskeletal/Skin risks negative except for: Mental Health risks negative except for: Code Status: Full Code, Other risk factors negative except for: Intra-abdominal or intra-thoracic disorders, potential blood loss, total joint replacement: Complete review of systems is otherwise negative. Patient Active Problem List Diagnosis ??? Irritable bowel syndrome ??? Malignant melanoma of skin of trunk, except scrotum (HRC) ??? Chronic headaches ??? BCC (basal cell carcinoma), leg ??? HTN (hypertension) (HRC) ??? Concussion ??? Overweight (HRC) ??? History of tobacco use ??? Hx of tonsillectomy Past Medical History Diagnosis Date ??? Chronic headaches 08/11/2011 ??? Irritable bowel syndrome 11/29/2002 ??? 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 BCC (basal cell carcinoma), leg 08/11/2011 ??? HTN (hypertension) (HRC) 08/11/2011 ??? Concussion 08/11/2011 ??? Obesity (HRC) 08/11/2011 ??? Hx of tonsillectomy 08/11/2011 ??? Clostridium difficile colitis 01/2012 Past Surgical History Procedure Laterality Date ??? Tonsillectomy ??? Cyst removal left wrist Family History Problem Relation Age of Onset ??? Heart Disease Negative Family History ??? Stroke Negative Family History ??? Cancer, Breast Negative Family History ??? Cancer, Colon Negative Family History ??? DVT/PE Negative Family History ??? Thyroid Disorder Negative Family History ??? Diabetes Negative Family History ??? Dementia Maternal Grandmother ??? Cancer, Prostate Maternal Grandfather Social History Social History ??? Marital Status: Single Spouse Name: N/A ??? Number of Children: 0 ??? 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 Smoking status: Former Smoker -- 0.25 packs/day for 15 years Types: Cigarettes Quit date: 04/25/2015 ??? Smokeless tobacco: Never Used ??? Alcohol Use: Yes Comment: rarely ??? Drug Use: No ??? Sexual Activity: Partners: Male Control/ Protection: OCP Other Topics Concern ??? City Water Yes ??? Exercise Yes ??? Guns In Home Yes ??? Seat Belt Yes ??? Special Diet No ??? Weight Concern Yes Social History Narrative Updated 10/2015: The patient is recently . She is stating an old friend. No children. 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 Current Outpatient Prescriptions Medication Sig Dispense Refill ??? amitriptyline (ELAVIL) 25 MG tablet TAKE 1-2 TABLETS BY MOUTH NIGHTLY. 180 tablet 3 ??? Calcium Carbonate Antacid 1000 MG Take by mouth. ??? dicyclomine (BENTYL) 20 MG tablet Take 1 tablet by mouth 4 times daily as needed. 360 tablet 3 ??? HYDROcodone-acetaminophen (NORCO) 5-325 MG tablet Take 1 Tab by mouth every 6 hours as needed for Pain. 10 Tab 0 ??? mesalamine (CANASA) [address] 1 suppository rectally nightly. 30 suppository 11 ??? mesalamine (LIALDA) 1.2 G enteric coated tablet 4.8gm daily, starting when the prednisone dose is weaned to 20mg. 120 tablet 11 ??? Multiple Vitamin (MULTI-VITAMIN OR) Take 1 tablet by mouth daily (every 24 hours). ??? [DISCONTINUED] norethindrone-eth estradiol (AKA NORINYL, ORTHO NOVUM) 1-35 MG-MCG tablet Take 1 tablet by mouth daily TAKE ACTIVE PILLS DAILY THEN DISCARD INACTIVE PILLS AND IMMEDIATELY START NEXT PACK. TAKING CONTINUOUSLY 28 tablet 0 ??? norethindrone-eth estradiol (NORINYL,ORTHONOVUM) 1-35 MG-MCG tablet Take 1 tablet by mouth daily(every 24 hours). PATIENT TAKES CONTINOUSLY 112 tablet 4 ??? Phentermine HCl (ADIPEX-P) 37.5 MG tablet Take 1 Tab by mouth daily before breakfast. 30 Tab 4 ??? potassium chloride (K-DUR,KLOR-CONM) 20 MEQ tablet Take 1 Tab by mouth daily for 2 days. 2 Tab 0 ??? topiramate (TOPAMAX) 25 MG tablet Take 0.5 Tabs by mouth two times a day. 90 Tab 1 ??? triamterene-hydrochlorothiazide (MAXZIDE-25) 37.5-25 MG tablet Take 1 tablet by mouth daily (every 24 hours). 90 tablet 4 No current facility-administered medications for this visit. No Known Allergies PHYSICAL EXAMINATION Temp: 99.3 ??F (37.4 ??C) (07/11/16 1029) Pulse: (!) 110 (07/11/16 1031) BP: 113/81 mmHg (07/11/16 1031) Height: 5' 6 (167.6 cm) (07/11/16 1029) Weight: 198 lb (89.812 kg) (07/11/16 1029) BMI (Calculated): 32.02 (07/11/16 1029) General Appearance: Normal HEENT: Normal Neck: Normal Lungs: Normal Heart: Normal EXCEPT FOR sinus tachycardia Abdomen: Normal Extremities: Normal Skin: Normal Neurologic: Normal TEST RESULTS AND DATE EKG done: No Labs done: No ASSESSMENT 1. Preoperative Assessment: This patient has been examined by me today and has been found to be a suitable candidate for surgery: Yes 2. Mild hypokalemia: potassium 3.3 6 days ago (07/11/16). Had been on potassium replacement in the past but no longer needed it. Will give 20 mEq potassium tonight and tomorrow. Hold triamterene-hctz tomorrow morning. 3. Tachycardia and elevated bp: notable increase in pulse and blood pressure since starting phentermine for weight loss. Pt also drinks Monster Energy drinks. She states her pulse is usually in the 120-130's. Recommend discontinuation of phentermine and discontinuation of Monster energy drinks. Will route to recommendation to Cartridge Filler who is currently managing her weight loss. RECOMMENDATIONS AND PLAN Day of surgery testing: none Medication recommendations including insulin / diabetes: no adjustments needed. Additional screening recommended: no Consult (Cardiology/other): no Additional test results attached: none Recommend RT assessment post op for Oxygenation and ventilation monitoring: no Other: no - Do not eat anything after midnight the evening before your surgery. - It is OK to drink water or Gatorade up to 4 hours before your surgery. - You may take medicines before surgery with a small sip of water ABOVE RECOMMENDATIONS WERE REVIEWED WITH PATIENT: yes Lori Tapia DO 07/11/2016 MENT PROCESSOR documented in this encounter Plan of Treatment Upcoming Encounters Date Type Specialty Care Team Description 05/05/2022 Appointment Chemo Therapy/Infusion Services 09/15/2022 Telemedicine Gastroenterology Eusebio Haines MD [address] [place] [place], [place] [id number] (Wo rk) documented as of this encounter Visit Diagnoses Diagnosis Acute hypokalemia - Primary Hypopotassemia documented in this encounter Care Teams Second Cutter Relationship Specialty Start Date End Date Found, No Pcp, PCP - General 07/05/16 07/11/16 [address] [place] [address] documented as of this encounter
--- OUTSIDE RECORDS SUMMARY | 2022-03-20 16:14 | XMS_ITS | Encounter Summary ---
:1975 Author Organization [employer] Address [address] [address] Care Team Providers Name Role Phone Found, No Pcp Primary Care Provider Unavailable Reason for Referral (Routine) - Closed Specialty Diagnoses / Procedures Referred By Contact Refer red To Contact Diagnoses Epigastric pain Miguelangel Barclay MD Procedures EGD [address] [place], [place] [address] Referral ID Status Reason Start Date Expiration Date Visits Requ ested Visits Authorized [id number] Closed 07/06/2016 10/05/2017 1 1 HEADER Reason for Visit (Routine) - Closed Specialty Diagnoses / Procedures Referred By Contact Refer red To Contact Diagnoses Epigastric pain Miguelangel Barclay MD Procedures EGD [address] [place], [place] [address] Referral ID Status Reason Start Date Expiration Date Visits Requ ested Visits Authorized [id number] Closed 07/06/2016 10/05/2017 1 1 Encounter Details Date Type Department Care Team Description 07/06/2016 Hospital Encounter [facility] Eduardo Vasquez MD Epigastric pain [address] [place] [address] [phone] Social History Tobacco Use Types Packs/Day Years [...] at Date Recorded Female 05/09/2021 7:19 PM PILE HEADER documented as of this encounter Last Filed Vital Signs Vital Sign Reading Time Taken Comments Blood Pressure 123/80 07/06/2016 12:15 PM PILE HEADER Pulse 105 07/06/2016 12:15 PM PILE HEADER Temperature - - Respiratory Rate 12 07/06/2016 12:15 PM PILE HEADER Oxygen Saturation 96% 07/06/2016 12:15 PM PILE HEADER Inhaled Oxygen Concentration - - Weight 93 kg (205 lb) 07/06/2016 11:10 AM PILE HEADER Height 167.6 cm (5' 6) 07/06/2016 11:10 AM PILE HEADER Body Mass Index 33.09 07/06/2016 11:10 AM PILE HEADER documented in this encounter Medications at Time of Discharge Medication Sig Dispensed Refills Start Date End Date Calcium Carbonate Take by mouth. 0 02/15/2012 Antacid 1000 MG Reported on 08/14/2016 Multiple Vitamin Take 1 tablet by 0 11/14/2011 (MULTI-VITAMIN OR) mouth daily (every 24 hours). amitriptyline TAKE 1-2 TABLETS BY 180 tablet 3 12/23/2015 (ELAVIL) 25 MG tablet MOUTH NIGHTLY. dicyclomine (BENTYL) Take 1 tablet by 360 tablet 3 6 07/24/2016 20 MG tablet mouth 4 times daily as needed. HYDROcodone-acetamino Take 1 Tab by mouth 10 Tab 0 07/0507/17/2016 phen (NORCO) 5-325 MG every 6 hours as tablet needed for Pain. mesalamine (CANASA) Place 1 suppository 30 suppository 11 07/30/2016 1000 MG suppository rectally nightly. mesalamine (LIALDA) 4.8gm daily, 120 tablet 11 10/04/201510/2016 1.2 G enteric coated starting when the tablet prednisone dose is weaned to 20mg. norethindrone-eth Take 1 tablet by 28 tablet 0 07/05/2011 0 07/19/2016 estradiol (AKA mouth daily TAKE NORINYL, ORTHO NOVUM) ACTIVE PILLS DAILY 1-35 MG-MCG tablet THEN DISCARD INACTIVE PILLS AND IMMEDIATELY START NEXT PACK. TAKING CONTINUOUSLY norethindrone-eth Take 1 tablet by 112 tablet 4 11/24/2015 0 11/21/2016 estradiol mouth daily (every (NORINYL,ORTHONOVUM) 24 hours). PATIENT 1-35 MG-MCG tablet TAKES CONTINOUSLY Phentermine HCl Take 1 Tab by mouth 30 Tab 4 05/29/2016 07/12/2016 (ADIPEX-P) 37.5 MG daily before tabletIndications: breakfast. Abnormal weight gain topiramate (TOPAMAX) Take 0.5 Tabs by 90 Tab 1 7 07/25/2016 25 MG tablet mouth two times a day. triamterene-hydrochlo Take 1 tablet by 90 tablet 4 02/05/20 16 04/25/2017 rothiazide mouth daily (every (MAXZIDE-25) 37.5-25 24 hours). MG tabletIndications: Essential hypertension (HRC) documented as of this encounter Progress Notes Bam Pichardo RN - 07/06/2016 12:38 PM CST PATIENTS STATES FEELING BETTER RELATED TO NAUSEA WOULD LIKE TO BE DISCHARGED HEADER Mira Seals RN - 07/06/2016 12:12 PM CST O2 sats 90% and above with stimulation and deep breathing HEADER documented in this encounter Procedure Notes Eduardo Vasquez MD - 07/06/2016 12:23 PM CST Patient Name: Idania Duarte Procedure Date: 07/06/2016 11:10 AM Date of : 1975 Admit Type: Outpatient Age: 41 Gender: Female Note Status: Finalized Attending MD: Eduardo Vasquez MD Procedure: Upper GI endoscopy Indications: Epigastric abdominal pain Providers: Eduardo Vasquez MD, Mira Seals Referring MD: Miguelangel Barclay MD Medicines: Midazolam 4 mg IV, Fentanyl 200 micrograms IV, Benzocaine spray Complications: No immediate complications. Estimated blood loss: Minimal. Procedure: After obtaining informed consent, the endoscope was passed under direct vision. Throughout the procedure, the patient's blood pressure, pulse, and oxygen saturations were monitored continuously. The flexible [id number] was introduced through the mouth, and advanced to the second part of duodenum. The upper GI endoscopy was accomplished without difficulty. The patient tolerated the procedure well. Findings: Patchy moderately erythematous mucosa without bleeding was found in the gastric body and in the gastric antrum. Biopsies were taken with a cold forceps for histology. Estimated blood loss was minimal. There is no endoscopic evidence of ulceration in the entire examined duodenum. Impression: - Erythematous mucosa in the gastric body and antrum. Biopsied. Recommendation: - Await pathology results. - Continue your present proton pump inhibitor, taking it 30 minutes before a meal. - Refer to a surgeon at appointment to be scheduled. Procedure Code(s): --- Professional --- 94842, Esophagogastroduodenoscopy, flexible, transoral; with biopsy, single or multiple Diagnosis Code(s): --- Professional --- K31.89, Other diseases of stomach and duodenum R10.13, Epigastric pain CPT copyright 2014 [employer]. All rights reserved. The codes documented in this report are preliminary and upon managing partner review may be revised to meet current compliance requirements. Eduardo Vasquez MD 07/06/2016 12:23:51 PM This document has been electronically signed. Number of Addenda: 0 Note Initiated On: 07/06/2016 11:10 AM Endoscopy Report HEADER documented in this encounter Plan of Treatment Upcoming Encounters Date Type Specialty Care Team Description 05/05/2022 Appointment Chemo Therapy/Infusion Services 09/15/2022 Telemedicine Gastroenterology Eusebio Haines MD [address] [place] [address] (Wo rk) documented as of this encounter Procedures Procedure Name Priority Date/Time Associated Comments Diagnosis ENDOSCOPY OBTAINED ANATOMICAL Routine 07/06/2016 Results for PATH 12:14 PM PILE HEADER this procedure are in the results section. ENDO ESOPHAGOGASTRODUODENOSCOPY Routine 07/06/2016 Epigastri c pain Results for (EGD) 11:10 AM PILE HEADER this procedure are in the results section. SURGICAL PATH, DONAL BALDWINET Routine 07/06/2016 6:00 Results for AM PILE HEADER this procedure are in the results section. documented in this encounter Results Endoscopy Obtained Anatomical Path (07/06/2016 12:14 PM PILE HEADER) athologist Signature Endo Tis Received PN SOFT Specimen Anatomical Collection Method Collection Time Receive d Time (Source) Location / / Volume Laterality 07/06/2016 12:14 07/06/2016 PM PILE HEADER 12:26 PM PILE HEADER Narrative PN SOFT - 07/06/2016 6:39 PM PILE HEADER Performed at [facility], [facility] [place] [address] CLIA number [id number] Eduardo Vasquez MD LAB_1 Performing Organization Address City/State/ZIP Code Phon e Number PN SOFT [address] [place] [address] EGD (07/06/2016 11:10 AM PILE HEADER) Specimen (Source) Anatomical Collection Method Collection Time Re ceived Time Location / / Volume Laterality 07/06/2016 11:10 AM PILE HEADER Narrative GI ([facility]ATION) - 07/06/2016 11:10 AM PILE HEADER Patient Name: Idania Duarte Procedure Date: 07/06/2016 11:10 AM Date of : 1975 Admit Type: Outpatient Age: 41 Gender: Female Note Status: Finalized Attending MD: Eduardo Vasquez MD Procedure: ? Upper GI endos copy Indications: ? Epigastric abdo dada pain Providers: ? Eduardo aVsquez MD, Mira Seals Referring : ?Miguelangel Barclay MD Medicines: ? Midazolam 4 mg IV, Fentanyl 200 ? microgram s IV, Benzocaine spray Complications: ? No immediate com plications. Estimated ? blood los s: Minimal. Procedure: ? After obtainin g informed consent, the ? endoscope was passed under direct ? vision. T hroughout the procedure, the ? patient's blood pressure, pulse, and ? oxygen sa turations were monitored ? continuou sly. The flexible ? [id number] was introduced through ? the mouth , and advanced to the second ? part of d geronimo. The upper GI ? endoscopy was accomplished without ? difficult y. The patient tolerated the ? procedure well. Findings: ? Patchy moderately erythematous mu cosa without ? bleeding was found in the gastric body and in the ? gastric antrum. Biopsies were pepper en with a cold ? forceps for histology. Estimated blood loss was ? minimal. ? There is no endoscopic evidence o f ulceration in the ? entire examined duodenum. Impression: ?- Erythematous mucosa in the gastric ? body and antrum. Biopsied. Recommendation: ?- Await patholog y results. ? - Continu e your present proton pump ? inhibitor , taking it 30 minutes ? before a meal. ? - Refer t o a surgeon at appointment ? to be horace eduled. Procedure Code(s): ?? --- Professional - -- ? 60648, Es ophagogastroduodenoscopy, ? flexible, transoral; with biopsy, ? single or multiple Diagnosis Code(s): ?? --- Professional - -- ? K31.89, O ther diseases of stomach and ? duodenum ? R10.13, E pigastric pain CPT copyright 2014 [employer]. All rights reserved. The codes documented in this report are preliminary and upon managing partner review may be revised to meet current compliance requirements. Eduardo Vasquez MD 07/06/2016 12:23:51 PM This document has been electronically si gned. Number of Addenda: 0 Note Initiated On: 07/06/2016 11:10 AM ? Endoscopy Report Procedure Note Eduardo Vasquez MD - 07/06/2016Formattin g of this note might be different from the original. Patient Name: Idania Duarte Procedure Date: 07/06/2016 11:10 AM Date of : 1975 Admit Type: Outpatient Age: 41 Gender: Female Note Status: Finalized Attending MD: Eduardo Vasquez MD Procedure: Upper GI endoscopy Indications: Epigastric abdominal pain Providers: Eduardo Vasquez MD, Mira luke Referring MD: Miguelangel Barclay MD Medicines: Midazolam 4 mg IV, Fentanyl 2 00 micrograms IV, Benzocaine spray Complications: No immediate complication s. Estimated blood loss: Minimal. Procedure: After obtaining informed cons ent, the endoscope was passed under direct vision. Throughout the procedure, the patient's blood pressure, pulse, and oxygen saturations were monitored continuously. The flexible [id number] was introduced through the mouth, and advanced to the second part of duodenum. The upper GI endoscopy was accomplished without difficulty. The patient tolerated the procedure well. Findings: Patchy moderately erythematous mucosa w ithout bleeding was found in the gastric body and in the gastric antrum. Biopsies were taken wit h a cold forceps for histology. Estimated blood loss was minimal. There is no endoscopic evidence of ulce ration in the entire examined duodenum. Impression: - Erythematous mucosa in the gastric body and antrum. Biopsied. Recommendation: - Await pathology result s. - Continue your present proton pump inhibitor, taking it 30 minutes before a meal. - Refer to a surgeon at appointment to be scheduled. Procedure Code(s): --- Professional --- 31180, Esophagogastroduodenoscopy, flexible, transoral; with biopsy, single or multiple Diagnosis Code(s): --- Professional --- K31.89, Other diseases of stomach and duodenum R10.13, Epigastric pain CPT copyright 2014 [employer]. All rights reserved. The codes documented in this report are preliminary and upon managing partner review may be revised to meet current compliance requirements. Eduardo Vasquez MD 07/06/2016 12:23:51 PM This document has been electronically si gned. Number of Addenda: 0 Note Initiated On: 07/06/2016 11:10 AM Endoscopy Report Miguelangel Barclay MD PN GI PROCEDURE ORDERABLES Performing Organization Address City/[facility]/ZIP [facility] [place] Phon e Number GI ([facility]OVATION) GI ([facility]) [place], [place] Pathology Report (07/06/2016 6:00 AM PILE HEADER) Component Value Ref Test Analysis Performed At [facility] gist Range Method Time Signature Path: FINAL SURGICAL PATHOLOGY REPORT PN SOFT Pathology #: [id number] ?Date Obtained: 07/06/2016 ? Date Received: 07/06/2016 DIAGNOSIS: Stomach (antrum), biopsy: - Focally active chronic gastritis (see note) Note: Immunohistochemical stain for Helicobacter pylori is negative. ? Sergio VOGEL ? (electronic signatur e) ? 07/11/2016 ??09:2 6 CLINICAL IMPRESSION: Epigastric pain ORGAN/TISSUE SITE: A. Biopsy gastric antrum GROSS DESCRIPTION: The specimen is labeled gastric antrum and consists of a single dawn tissue fragment measuring 0.2 cm in greatest dimension. ??T he tissue is filtered and submitted in one block. ? WEYAL MICROSCOPIC DESCRIPTION: A) Microscopic examination performed Performed at [facility], [address] [place] [address] Specimen Anatomical Collection Method Collection Time Receive d Time (Source) Location / / Volume Laterality STOMACH STRUCTURE 07/06/2016 6:00 AM 06/25 6:00 / Unknown PILE HEADER AM PILE HEADER Eduardo Vasquez MD LAB_1 Performing Organization Address City/[facility] Phon e Number PN SOFT [address] [place] [address] documented in this encounter Visit Diagnoses Diagnosis Epigastric pain Abdominal pain, epigastric documented in this encounter Administered Medications Inactive Administered Medications - up to 3 most recent administrations Medication Order MAR Action Action Date Dose Rate Site benzocaine (HURRICAINE) 20 % Given 07/06/2016 11:40 AM PILE HEADER 1 Spr ay oral spray 1 [place] 1 [place], Mouth/Throat, PRN, Pain, Starting on Tamela 07/06/16 at 1130, Hazardous waste disposal required. Given 07/06/2016 11:37 AM PILE HEADER 1 [place] fentaNYL (SUBLIMAZE) injection 25-100 mc g Given 07/06/2016 12:11 PM PILE HEADER 200 mcg 25-100 mcg, Intravenous, PRN, Other, Moderate Sedation, Starting on Tameal 07/06/16 at 1130, Until Sun07/07/16 at 0205, Administer in 25-100 mcg increments as directed by endoscopy procedure MD up to a total of 300 mcg. midazolam (VERSED) injection 0.5-2 mg Given 07/06/2016 12:11 PM PILE HEADER 4 mg 0.5-2 mg, Intravenous, PRN, Sedation, Starting on Tamela 07/06/16 at 1130, Until Sun07/07/16 at 0205, Administer in 0.5-2 mg increments as directed by endoscopy procedure MD up to a total of 8 mg. sodium chloride 0.9% injection 10-60 mL Given 07/06/2016 12:12 PM PILE HEADER 20 mL 10-60 mL, Intravenous, PRN, Line Patency, Line Care, Starting on Tamela 07/06/16 at 1130, Until Sun07/07/16 at 0205 documented in this encounter Care Teams Quality Tester Relationship Specialty Start Date End Date Found, No Pcp, PCP - General 07/05/16 07/11/16 [address] [place] [address] documented as of this encounter
--- OUTSIDE RECORDS SUMMARY | 2022-03-20 16:14 | XMS_ITS | Encounter Summary ---
:1975 Author Organization [employer] Address [address] [place] [address] Care Team Providers Name Role Phone Sheeba Castillo APRN, STYLIST ASSISTANT Primary Care Provider [phone] Reason for Visit Reason Comments ERRONEOUS ENTRY Encounter Details Date Type Department Care Team Description 07/16/2016 Telephone Careline Unassigned, Provider ERRONEOUS ENTRY [address] [place], [place] [address] [address] [place] [address] Social History Tobacco Use Types Packs/Day Years [...] at Date Recorded Female 05/09/2021 7:19 PM WHARF TENDER HEAD documented as of this encounter Nursing Notes iMguelangel Marley - 07/16/2016 6:49 PM CST Pt transferred to Appointment Center F TENDER HEAD documented in this encounter Plan of Treatment Upcoming Encounters Date Type Specialty Care Team Description 05/05/2022 Appointment Chemo Therapy/Infusion Services 09/15/2022 Telemedicine Gastroenterology Eusebio Haines MD [address] [place], [place] [id number] (Wo rk) documented as of this encounter Visit Diagnoses Not on filedocumented in this encounter Care Teams Real Estate Management Specialist Relationship Specialty Start Date End Date Sheeba Castillo, VETERINARY TECHNOLOGIST, STYLIST ASSISTANT PCP - General Nurse Practitioner 07/13/16 07/17/16 [address] [place] Dinh [phone] documented as of this encounter
--- OUTSIDE RECORDS SUMMARY | 2022-03-20 16:14 | XMS_ITS | Encounter Summary ---
:1975 Author Organization [employer] Address [address], [place] [address] Care Team Providers Name Role Phone Sheeba Castillo APRN, SIERRA Primary Care Provider [phone] Reason for Visit Reason Comments RESULTS, TEST Encounter Details Date Type Department Care Team Description 07/17/2016 Telephone [facility] Lolly Lancaster PA-C RESULTS, TEST Practice [address] [facility] [address] [place] [address] [place], [place] [address] [phone] Social History Tobacco Use Types Packs/Day Years [...] at Date Recorded Female 05/09/2021 7:19 PM INFORMATION MANAGEMENT MANAGER documented as of this encounter Nursing Notes Fernanda Lancaster PA-C - 07/17/2016 4:52 PM CST Spoke with Idania, discussed lab results from today. Potassium at the low end of normal. Should continue the potassium supplement, I think indefinitely if she wants to stay on her diuretic. WBC up slightly but probably reactive given her recent surgery. She is feeling better this afternoon, less nausea, has kept some bland food down. Will call with new or worsening sx Fernanda Lancaster PA-C 07/17/2016, 4:53 PM RMATION MANAGEMENT MANAGER documented in this encounter Plan of Treatment Upcoming Encounters Date Type Specialty Care Team Description 05/05/2022 Appointment Chemo Therapy/Infusion Services 09/15/2022 Telemedicine Gastroenterology Eusebio Haines MD [address] [place] [address] (Wo rk) documented as of this encounter Visit Diagnoses Not on filedocumented in this encounter Care Teams Marine Equipment Research Engineer Relationship Specialty Start Date End Date Sheeba Castillo, ZINC MINER BLASTING, FORESTRY AIDE PCP - General Nurse Practitioner 07/13/16 07/17/16 [address] [place] Dinh [id number] documented as of this encounter
--- OUTSIDE RECORDS SUMMARY | 2022-03-20 16:14 | XMS_ITS | Encounter Summary ---
:1975 Author Organization [employer] Address [address] [address] Care Team Providers Name Role Phone Found, No Pcp MD Primary Care Provider Unavailable Reason for Visit Reason Onset Date Comments QUESTIONS, GENERAL 07/07/2016 Encounter Details Date Type Department Care Team Description 07/07/2016 Telephone [facility] Nurse Line Found, No Pcp, MD QUESTIONS, GENERAL [address] [id number] Social History Tobacco Use Types Packs/Day Years [...] at Date Recorded Female 05/09/2021 7:19 PM FILTER TIP CATCHER documented as of this encounter Nursing Notes Chastity Bravo RN - 07/07/2016 7:23 PM CST Caller states she is scheduled to see General surgery on Sunday but not sure quite why. Discussed US and plan of care as outlined by Gastro. Continues to have upper abdominal pain as when first assessed with no change. Pain is 4 Took tylenol today for work. Discussed how to manage pain over the weekend. Take Powers if pain is severe ( 8, 9, or 10) Pair with Tylenol not to exceed 1G q4-6 hrs. Stick to clear diet. Nothing spicy, fried. Rest hydrate until seen. Advised to call back directly if there are further questions, or if these symptoms fail to improve as anticipated or worsen. Patient Active Problem List Diagnosis ??? Irritable bowel syndrome ??? Malignant melanoma of skin of trunk, except scrotum (HRC) ??? Chronic headaches ??? BCC (basal cell carcinoma), leg ??? HTN (hypertension) (HRC) ??? Concussion ??? Overweight (HRC) ??? History of tobacco use ??? Hx of tonsillectomy Outpatient Prescriptions as of 07/07/2016: amitriptyline (ELAVIL) 25 MG tablet TAKE 1-2 TABLETS BY MOUTH NIGHTLY. Disp: 180 tablet Rfl: 3 Calcium Carbonate Antacid 1000 MG Take by mouth. Disp: Rfl: dicyclomine (BENTYL) 20 MG tablet Take 1 tablet by mouth 4 times daily as needed. Disp: 360 tablet Rfl: 3 HYDROcodone-acetaminophen (NORCO) 5-325 MG tablet Take 1 Tab by mouth every 6 hours as needed for Pain. Disp: 10 Tab Rfl: 0 mesalamine (CANASA) [address] 1 suppository rectally nightly. Disp: 30 suppository Rfl: 11 mesalamine (LIALDA) 1.2 G enteric coated tablet 4.8gm daily, starting when the prednisone dose is weaned to 20mg. Disp: 120 tablet Rfl: 11 Multiple Vitamin (MULTI-VITAMIN OR) Take 1 tablet by mouth daily (every 24 hours). Disp: Rfl: [DISCONTINUED] norethindrone-eth estradiol (AKA NORINYL, ORTHO NOVUM) 1-35 MG- MCG tablet Take 1 tablet by mouth daily TAKE ACTIVE PILLS DAILY THEN DISCARD INACTIVE PILLS AND IMMEDIATELY START NEXT PACK. TAKING CONTINUOUSLY Disp: 28 tablet Rfl: 0 norethindrone-eth estradiol (NORINYL,ORTHONOVUM) 1-35 MG-MCG tablet Take 1 tablet by mouth daily (every 24 hours). PATIENT TAKES CONTINOUSLY Disp: 112 tablet Rfl: 4 Phentermine HCl (ADIPEX-P) 37.5 MG tablet Take 1 Tab by mouth daily before breakfast. Disp: 30 Tab Rfl: 4 topiramate (TOPAMAX) 25 MG tablet Take 0.5 Tabs by mouth two times a day. Disp: 90 Tab Rfl: 1 triamterene-hydrochlorothiazide (MAXZIDE-25) 37.5-25 MG tablet Take 1 tablet by mouth daily (every 24 hours). Disp: 90 tablet Rfl: 4 Facility-Administered Medications as of 07/07/2016: [DISCONTINUED] benzocaine (HURRICAINE) 20 % oral spray 1 [place] 1 [place] Mouth/Throat PRN Archie Vasquez MD 1 [place] at 07/06/16 1140 [DISCONTINUED] fentaNYL (SUBLIMAZE) injection 25-100 mcg 25-100 mcg Intravenous PRN Eduardo Vasquez MD 200 mcg at 07/06/16 1211 [DISCONTINUED] midazolam (VERSED) injection 0.5-2 mg 0.5-2 mg Intravenous PRN Eduardo Vasquez MD 4 mg at 07/06/16 1211 [DISCONTINUED] ondansetron (ZOFRAN) injection 4 mg 4 mg Intravenous PRN Eduardo Vasquez MD [DISCONTINUED] sodium chloride 0.9% injection 10-60 mL 10-60 mL Intravenous PRN Eduardo Vasquez MD 20 mL at 07/06/16 1212 ER TIP CATCHER documented in this encounter Plan of Treatment Upcoming Encounters Date Type Specialty Care Team Description 05/05/2022 Appointment Chemo Therapy/Infusion Services 09/15/2022 Telemedicine Gastroenterology Eusebio Haines MD [address] [place] [place] [address] (Wo rk) documented as of this encounter Visit Diagnoses Not on filedocumented in this encounter Care Teams Porcelain Finisher Relationship Specialty Start Date End Date Found, No Pcp, PCP - General 07/05/16 07/11/16 [address] [place] [address] documented as of this encounter
--- OUTSIDE RECORDS SUMMARY | 2022-03-20 16:14 | XMS_ITS | Encounter Summary ---
:1975 Author Organization [employer] Address [address] [place] [address] Care Team Providers Name Role Phone Needs Pcp, Assignment Primary Care Provider Reason for Visit Reason Comments CONSULT Consult/Transfer Care (Routine) - Closed Specialty Diagnoses / Procedures Referred By Contact Refer red To Contact Diagnoses Calculus of bile duct without cholangitis or biliary obstruction Eduardo Carrizales MD [address] [place], [place] [address] Referral ID Status Reason Start Date Expiration Date Visits Requ ested Visits Authorized [id number] Closed 07/06/2016 10/05/2017 1 1 Encounter Details Date Type Department Care Team Description 07/11/2016 Initial Consult Specialty Center Donovan Lynne Bili [facility] 3931 General Surgery (Primary Dx) [address] [facility]. [address] [facility] [address] [place] [address] [phone] Social History Tobacco Use Types Packs/Day Years [...] at Date Recorded Female 05/09/2021 7:19 PM HEDGE FUND ACCOUNTANT documented as of this encounter Last Filed Vital Signs Vital Sign Reading Time Taken Comments Blood Pressure 137/83 07/11/2016 9:00 AM HEDGE FUND ACCOUNTANT Pulse 126 07/11/2016 9:00 AM HEDGE FUND ACCOUNTANT Temperature - - Respiratory Rate - - Oxygen Saturation - - Inhaled Oxygen Concentration - - Weight - - Height - - Body Mass Index - - documented in this encounter Progress Notes Donovan Lynne MD - 07/11/2016 10:14 AM CST NAME: IGGY DUARTE MR#: [id number] CSN: [id number] AUTHENTICATING CLINICIAN: Donovan Lynne MD CONFIRM #: [id number] LOC: 225 CLINIC PROGRESS NOTE DATE OF VISIT: 07/11/2016 : 1975 CHIEF COMPLAINT: Biliary colic. HISTORY OF PRESENT ILLNESS: Patient is a 41-year-old who has been having increasingly severe right upper quadrant epigastric pain with some radiation around to her back. She also has some lower abdominal cramping and chronic loose stools. She has been seen by GI Medicine, Eileen Dougherty, and was diagnosed with colitis. She has been on mesalamine for this, but still is an issue per the patient. Her main complaint now, however, is the epigastric and right upper quadrant pain. She underwent an EGD by Dr. Carrizales on 07/06/2016, thatshowed some gastritis, pathology is pending at the time of her dictation today, and she remains on Bentyl and mesalamine for the colitis. She also had had an ultrasound on 07/05/2016, that showed cholel ithiasis with a 7 mm common bile duct. Liver function tests were within normal limits, as was a white blood cell count when she was seen in the emergency room on 07/05/2016. She was sent by Dr. Carrizales for a consultation regarding the symptomatic cholelithiasis. PAST MEDICAL HISTORY: Significant for hypertension, irritable bowel, colitis, obesity. MEDICATIONS: Include Maxzide, Topamax, multivitamin, mesalamine, Bentyl, Elavil, calcium. She quit tobacco in 2014. Occasionally drinks alcohol. 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 PHYSICAL EXAM: Overweight female in no acute distress. There is no obvious scleral icterus or jaundice. ABDOMEN: Soft and nontender. No surgical scars present. Review of the ultrasound, blood work, shows the findings as noted above. ASSESSMENT AND PLAN: Ms. Duarte is a 41-year-old who presents with increasingly frequent and severe epigastric and rightupper quadrant pain. She is having some discomfort every time she eats. She says that she is fairly miserable and would like to get her gallbladder taken out. The laparoscopic, possible open procedure,its risks and benefits including the possibility of bleeding, infection, injury to the bile duct requiring additional surgery, nonresolution of her symptoms, anesthetic complications, and activity limitations discussed with patient. Appeared to understand, all questions answered. We will schedule thistomorrow under general anesthesia; have her cleared for surgery by her primary care provider. Spent 20 minutes with the patient, 15 of which was counseling time. CC: [place] [address] [place] [address] [place] [address] [place] [address] EDUARDO CARRIZALES MD [address] [place] [id number] KM:MEDQ C: CONFIRM #: [id number] E FUND ACCOUNTANT Nataly Ramsey RN - 07/11/2016 9:15 AM CST Reviewed surgery packet and preop/post op instructions with patient re: laparoscopic cholecystectomy. Per Dr Lynne do not take aspirin 7 days before surgery. All questions were answered. Patient verbalized understanding, is in agreement with the plan, and will call back with any further questions or c oncerns. E FUND ACCOUNTANT documented in this encounter Plan of Treatment Upcoming Encounters Date Type Specialty Care Team Description 05/05/2022 Appointment Chemo Therapy/Infusion Services 09/15/2022 Telemedicine Gastroenterology Eusebio Haines MD [address] [place] [address] (Wo rk) documented as of this encounter Visit Diagnoses Diagnosis Biliary colic - Primary Calculus of gallbladder without mention of cholecystitis or obstruction documented in this encounter Care Teams Territory Account Representative Relationship Specialty Start Date End Date Needs Pcp, Assignment PCP - General 07/12/16 07/12/16 [place] [address] documented as of this encounter
--- OUTSIDE RECORDS SUMMARY | 2022-03-20 16:14 | XMS_ITS | Encounter Summary ---
:1975 Author Organization [employer] Address [address] [address] Care Team Providers Name Role Phone Fernanda Lancaster PA-C Primary Care Provider Reason for Visit Reason Comments Follow-up, NOS Encounter Details Date Type Department Care Team Description 07/18/2016 Telephone [facility] Lolly Lancaster PA-C Follow-up, NOS Practice [address] [facility] [address] [place] [address] [place], [place] [address] [phone] Social History Tobacco Use Types Packs/Day Years [...] at Date Recorded Female 05/09/2021 7:19 PM GEOLOGICAL ENGINEERING TEACHER documented as of this encounter Nursing Notes Fernanda Lancaster PA-C - 07/18/2016 4:50 PM CST Spoke with Idania, seemed a bit better yesterday afternoon and woke up feeling okay initially this morning but then went down hill. Diarrhea and vomiting. Lower abdominal cramps associated with the diarrhea and vomiting. No fevers. No urinary sx. Drinking quite a bit of water. Had a little soup and toast. Anti emetics don't really seem to help. Her bentyl isn't helping with cramping. Going to have her try pepto bismal 2 tabs TID for a few days. Continue bland diet, water. Call if a fever reoccurs, needs to be seen. Letter sent through OPS for missing work today Fernanda Lancaster PA-C 07/18/2016, 4:53 PM OGICAL ENGINEERING TEACHER Elvi Tubbs - 07/18/2016 3:59 PM CST What is your question?: Patient was seen yesterday and given promethazine (PHENERGAN) and this morning she has been vomiting about 4-5 times and has the diarrhea and is having bad stomach cramps. When did you last see your provider for this?: 07/17 If a prescription is needed, would you like it filled at our clinic pharmacy? [Sanitation Technician/Appt Center: Was the pharmacy entered into the Preferred Pharmacy field? Yes Is it okay to leave a detailed message on your voicemail?:Yes [Sanitation Technician/Appt Center: If this call is after 3 p.m., communicate to patient: If we are not able to get back to you by the end of the day and your symptoms worsen please contact the Careline at [phone] OR at .] Is there anything else I can help you with today? No Elvi Tubbs 07/18/2016, 3:59 PM OGICAL ENGINEERING TEACHER documented in this encounter Plan of Treatment Upcoming Encounters Date Type Specialty Care Team Description 05/05/2022 Appointment Chemo Therapy/Infusion Services 09/15/2022 Telemedicine Gastroenterology Eusebio Haines MD [address] [place], [place] [phone] (Wo rk) documented as of this encounter Visit Diagnoses Not on filedocumented in this encounter Care Teams Blow Molder Relationship Specialty Start Date End Date Fernanda Lancaster PA-C PCP - General Physician Wood Boat Builder Supervisor 07/18/16 1 [address] [place] [address] documented as of this encounter
--- OUTSIDE RECORDS SUMMARY | 2022-03-20 16:14 | XMS_ITS | Encounter Summary ---
:1975 Author Organization [employer] Address [address], [place] [address] Care Team Providers Name Role Phone Found, No Pcp Primary Care Provider Unavailable Reason for Visit Reason Onset Date Comments [facility] 07/05/2016 Encounter Details Date Type Department Care Team Description 07/05/2016 Nurse Triage [facility] Found, No Pcp, [facility] Medicine [address] [place] [phone] Social History Tobacco Use Types Packs/Day Years [...] at Date Recorded Female 05/09/2021 7:19 PM MEDICAL REVIEWER documented as of this encounter Nursing Notes Ifrah Betts RN - 07/05/2016 12:53 PM CST Protocol: ABDOMINAL PAIN - [id number] Affirmative: Constant abdominal pain lasting > 2 hours Disposition of Go to ED/[facility] Now (with PCP acknowledgement) suggested. Pt reports burning in upper abd. It comes in waves. Has had symptoms x 1 week. [facility] rates pain at 5/10, nighttime worse. Even when she drinks water the area mason. Triedincreasing doses of Prilosec (60mg), Tums, Mylanta, with no relief. She states she is working, so she will go to after work CAL REVIEWER Lorenzo Bhardwaj - 07/05/2016 12:42 PM CST Pt says she may have an ulcer and requesting to speak to a nurse. CAL REVIEWER documented in this encounter Plan of Treatment Upcoming Encounters Date Type Specialty Care Team Description 05/05/2022 Appointment Chemo Therapy/Infusion Services 09/15/2022 Telemedicine Gastroenterology Eusebio Haines MD [address] [place] [address] (Wo rk) documented as of this encounter Visit Diagnoses Not on filedocumented in this encounter Care Teams Distribution Center Associate Relationship Specialty Start Date End Date Found, No PcpMD PCP - General 07/05/16 07/11/16 [address] [place] [address] documented as of this encounter
--- OUTSIDE RECORDS SUMMARY | 2022-03-20 16:14 | XMS_ITS | Encounter Summary ---
:1975 Author Organization [employer] Address [address] [place] [address] Care Team Providers Name Role Phone Sheeba Castillo APRN, SIERRA Primary Care Provider [phone] Reason for Visit Reason Comments Post-Op Problem Encounter Details Date Type Department Care Team Description 07/16/2016 Nurse Triage Careline Unassigned, Provider Post-Op Problem [address] [place], [place] [address] [place] [address] Social History Tobacco Use Types Packs/Day Years [...] at Date Recorded Female 05/09/2021 7:19 PM PSYCHOLOGY ASSISTANT documented as of this encounter Nursing Notes Maricruz Escobar RN - 07/16/2016 10:39 AM CST Protocol: POST-OP SYMPTOMS AND LIEAXYNST-PLWUO-WP Affirmative: Fever > 100.5 F (38.1 C) Disposition of See Physician Within 4 Hours (Or PCP Triage) suggested. Maricruz Kwan RN - 07/16/2016 10:35 AM CST Verified and full name. Yes speaking with pt. Situation/Background (brief explanation of current symptoms/situation): Pt states that she had gallbladder surgery on this past Sunday. She states that she was starting to feel improved however feels worse today. Last night temperature was 101.2 and had chills. Now today no fever but has fatigue/generalized muscle fatigue. No pain, only mild soreness in incisional area. There is no redness or drainage or swelling at incision sites. Pt states that she has diarrhea. Taking antidiarrhea pills. She had diarrhea prior to surgery. Has Colitis . 3 since [place]. No blood in stool. Less stool. After surgery called and told that colon was red/inflammed. Still no blood in stool. No vomiting. Nausea. Generalized muscle aches. Was prescribed Potassium pills to take for low potassium however has not picked up meds yet. Urinating regularly. Reviewed with patient pertinent medical history(as it related to the call): Yes Reviewed with patient pertinent medications (as they relate to call): Yes Plan; Paging vendor relationship manager [facility] provider general surgery Dr. Michelle Toribio for consult regarding most appropriate location for eval. Information given to Dr Toribio. He states that if it was just the one fever , pt can continue to monitor at home and f/u with clinic appt tomorrow., should also start taking the potassium as prescribed. If she is feeling sick or presents with fever again, pt should be evaluated today, or any new or worsening symptoms. . [facility] is fine. Information given to pt. She states understanding and is comfortable with plan. She plans to rest, take meds as prescribed, monitor at this time and f/u appt tomorrow. She states understanding and is comfortable with plan. Call back if symptoms change/worsen/no improvement Basia Huang - 07/16/2016 9:16 AM CST Which care system or clinic is the patient normally seen at? [facility] . Situation: Medical: Pt had gallbladder removed on 07/12/16, states that she still isn't feeling well. States that she is achy and fatigue.: Plan:The current callback time to speak with a nurse is 1.5 hour. If your symptoms change or worsen,or if you have not received a call back in the stated timeframe, please call us back at [phone].. HOLOGY ASSISTANT documented in this encounter Plan of Treatment Upcoming Encounters Date Type Specialty Care Team Description 05/05/2022 Appointment Chemo Therapy/Infusion Services 09/15/2022 Telemedicine Gastroenterology Eusebio Haines MD [address] [place] [address] (Wo rk) documented as of this encounter Visit Diagnoses Not on filedocumented in this encounter Care Teams Distributor Operator Relationship Specialty Start Date End Date Sheeba Castillo, FLUE LINING DIPPER, DIRECTOR VISUAL PCP - General Nurse Practitioner 07/13/16 07/17/16 [address] [place] [address] documented as of this encounter
--- OUTSIDE RECORDS SUMMARY | 2022-03-20 16:14 | XMS_ITS | Encounter Summary ---
:1975 Author Organization [facility] Address [address] [place] [address] Care Team Providers Name Role Phone Fernanda Lancaster PA-C Primary Care Provider Reason for Visit Reason Comments Vomiting Diarrhea Encounter Details Date Type Department Care Team Description 07/19/2016 Hospital Encounter [facility] Wse Hodges dominal pain, Care MD Chrissy unspecified location [address] [place] [address] [facility] [phone] [place] [address] Social History Tobacco Use Types Packs/Day Years [...] at Date Recorded Female 05/09/2021 7:19 PM CRISIS COUNSELOR documented as of this encounter Last Filed Vital Signs Vital Sign Reading Time Taken Comments Blood Pressure 124/82 07/19/2016 10:02 AM CRISIS COUNSELOR Pulse 129 07/19/2016 10:02 AM CRISIS COUNSELOR Temperature 36.6 ??C (97.8 ??F) 07/19/2016 10:02 AM CRISIS COUNSELOR Respiratory Rate 18 07/19/2016 10:02 AM CRISIS COUNSELOR Oxygen Saturation 96% 07/19/2016 10:02 AM CRISIS COUNSELOR Inhaled Oxygen Concentration - - Weight - [...] documented as of this encounter ED Notes Wes Hodges MD - 07/19/2016 10:40 AM CST NAME: IGGY DUARTE MR#: [id number] CSN: [id number] AUTHENTICATING CLINICIAN: Wes Hodges MD CONFIRM #: [id number] LOC: 520 URGENT CARE PROGRESS NOTE DATE OF VISIT: 07/19/2016 : 1975 A 41-year-old female comes in. She has had difficulty. She had gallbladder surgery last week. She was told she had a flare-up of colitis when they were in there. She has had difficulties with feversl dry heaves, has not been able to keep fluids down. She has had chills. She has had some rectal bleeding which is not unusual for her, although has now flare-up with colitis, abdominal pain. She was usingZofran without relief. PROBLEM LIST: Reviewed. ALLERGIES: Reviewed. HOME MEDICATIONS: Reviewed. HISTORY: Reviewed. PHYSICAL EXAM: She is afebrile. She is tachycardic. She is in no acute distress. Mucous members are slightly dry. Throat is clear. NECK: Supple. LUNGS: Clear to auscultation. ABDOMEN: Positive bowel sounds. Soft. She has some tenderness in the left lower quadrant. No reboundor guarding. No hepatosplenomegaly, masses palpated. ASSESSMENT: Abdominal pain, postoperative gallbladder, history of colitis, vomiting. In light of the multiple issues, she has failed outpatient treatment, we discussed with her starting the evaluation here or whether she should start at [facility]. She is in agreement to be referred to [facility] and may need to beadmitted, but did not want to start here and then have to transfer. She is stable to go by private car, accepted by the ER staff at [facility], who will start the evaluation of this. DAK:EAN C: CONFIRM #: [id number] IS COUNSELOR documented in this encounter Plan of Treatment Upcoming Encounters Date Type Specialty Care Team Description 05/05/2022 Appointment Chemo Therapy/Infusion Services 09/15/2022 Telemedicine Gastroenterology Eusebio Haines MD [address] [place] [address] (Wo rk) documented as of this encounter Visit Diagnoses Diagnosis Abdominal pain, unspecified location Triage Assessment Note - Indira Flaherty, RN - 07/19/2016 9:55 AM CST Pt had her gallbladder out on 07/12/16. Sunday she started having nausea, dry heaves and diarrhea. 101-102F fever & pelvic pain started Sunday. She was told just to start Potassium on Sunday since that was low prior to surgery, but her symptoms have been worsening daily. She's still having n/v/d and chills. She states she's had rectal bleeding since before surgery and they could see during surgery she was having a flare-up of her colitis. IS COUNSELOR documented in this encounter Care Teams Manager Progressive Care Relationship Specialty Start Date End Date Fernanda Lancaster PA-C PCP - General Physician Inbound Sales Representative 07/18/16 07/19/16 [address] [place] [address] documented as of this encounter
--- OUTSIDE RECORDS SUMMARY | 2022-03-20 16:14 | XMS_ITS | Encounter Summary ---
:1975 Author Organization [employer] Address [address], [place] [address] Care Team Providers Name Role Phone Found, No Pcp MD Primary Care Provider Unavailable Reason for Referral (Routine) - Closed Specialty Diagnoses / Procedures Referred By Contact Refer red To Contact Diagnoses Epigastric pain Miguelangel Barclay MD Procedures EGD [address] [place], [place] [address] Referral ID Status Reason Start Date Expiration Date Visits Requ ested Visits Authorized [id number] Closed 07/06/2016 10/05/2017 1 1 TRICAL SUPERVISOR Reason for Visit Reason Onset Date Comments APPOINTMENT REQUEST 07/06/2016 Encounter Details Date Type Department Care Team Description 07/06/[address] jae Gramajo MD APPOINTMENT REQUEST Gastroenterology [address] [place] [address] [phone] Social History Tobacco Use Types Packs/Day Years [...] at Date Recorded Female 05/09/2021 7:19 PM ELECTRICAL SUPERVISOR documented as of this encounter Nursing Notes Miguelangel Barclay MD - 07/06/2016 9:15 AM CST Good timing. The ER put the wrong MR# in my pager last PM so I couldn't find her. The ER was trying to find the correct patient for me this am. I just spoke with patient. Has had 8 days of epigastric pain without N/V or melena. No ASA/NSAIDs. Last PM LFTs,CBC normal, lipase 354. U/S showed gallstones without cholecystitis, normal pancreas and CBD 7 mm. Please put patient on for EGD with Dr. Vasquez in his 11:10 opening today. He is aware. She is NPO. If EGD negative will likely need a CT. This may be resolving gallstone pancreatitis and we missed the elevated LFTs if this began a week ago. Thanks. TRICAL SUPERVISOR Peg Cordero, MARIO - 07/06/2016 8:57 AM CST Patient calling stating she was seen in ER last night for possible pancreatitis. She was told that Dr. Barclay was going to call her today with a plan of care. Please advise. TRICAL SUPERVISOR documented in this encounter Plan of Treatment Upcoming Encounters Date Type Specialty Care Team Description 05/05/2022 Appointment Chemo Therapy/Infusion Services 09/15/2022 Telemedicine Gastroenterology Eusebio Haines MD [address] [place], [place] [address] (Wo rk) documented as of this encounter Results EGD (07/06/2016 11:10 AM ELECTRICAL SUPERVISOR) Specimen (Source) Anatomical Collection Method Collection Time Re ceived Time Location / / Volume Laterality 07/06/2016 11:10 AM ELECTRICAL SUPERVISOR Narrative [facility] ([facility]) - 07/06/2016 11:10 AM ELECTRICAL SUPERVISOR Patient Name: Idania Duarte Procedure Date: 07/06/2016 11:10 AM Date of : 1975 Admit Type: Outpatient Age: 41 Gender: Female Note Status: Finalized Attending MD: Eduardo Vasquez MD Procedure: ? Upper GI endos copy Indications: ? Epigastric abdo dada pain Providers: ? Eduardo Vasquez MD, Mira Seals Referring MD: ?Miguelangel Barclay MD Medicines: ? Midazolam 4 [...] to the second ? part of d uodenum. The upper GI ? endoscopy was accomplished [...] Code(s): ?? --- Professional - -- ? 54472, Es ophagogastroduodenoscopy, ? flexible, transoral; with biopsy, ? single or multiple Diagnosis Code(s): ?? --- Professional - -- ? K31.89, O ther diseases of stomach and ? duodenum ? R10.13, E pigastric pain CPT copyright 2014 [employer]. All rights reserved. The codes documented in this report are preliminary and upon dock associate review may be revised to meet current [...] oxygen saturations were monitored continuously. The flexible JPY-[id number] was introduced through the mouth, and advanced [...] be scheduled. Procedure Code(s): --- Professional --- 85282, Esophagogastroduodenoscopy, flexible, transoral; with biopsy, single or multiple Diagnosis Code(s): --- Professional --- K31.89, Other diseases of stomach and duodenum R10.13, Epigastric pain CPT copyright 2014 [employer]. All rights reserved. The codes documented in this report are preliminary and upon dock associate review may be revised to meet current compliance requirements. Eduardo Vasquez MD 07/06/2016 12:23:51 PM This document has been electronically si gned. Number of Addenda: 0 Note Initiated On: 07/06/2016 11:10 AM Endoscopy Report Miguelangel Barclay MD PN GI PROCEDURE ORDERABLES Performing Organization Address City/State/ZIP Code Phon e Number [facility] ([facility]) [facility] ([facility]) [place], [place] documented in this encounter Visit Diagnoses Diagnosis Epigastric pain - Primary Abdominal pain, epigastric Epigastric pain Abdominal pain, epigastric documented in this encounter Care Teams Hand Gluer And Slicer Relationship Specialty Start Date End Date Found, No Pcp, PCP - General 07/05/16 07/11/16 [address] [place] [address] documented as of this encounter
--- OUTSIDE RECORDS SUMMARY | 2022-03-20 16:14 | XMS_ITS | Encounter Summary ---
:1975 Author Organization [employer] Address [address] [place] [address] Care Team Providers Name Role Phone Found, No Pcp Primary Care Provider Unavailable Reason for Referral Procedure/Equipment (Routine) - Incomplete Specialty Diagnoses / Procedures Referred By Contact Refer red To Contact Procedures Ashkan Bejarano MD Abd RUQ Organs [address] [place], [place] [address] Referral ID Status Reason Start Date Expiration Date Visits V isits Requested Authorized [id number] Incomplete 07/05/2016 10/04/2017 1 1 NING MANAGER Reason for Visit Reason Comments Epigastric Pain Referral Encounter Details Date Type Department Care Team Description 07/05/2016 Emergency [facility] Ashkan Bejarano, Calculus of gallbladder without cholecystitis without obstruction; Center Epigastric pain [address] [address] [place] [address] [phone] (Wo rk) Social History Tobacco Use Types [...] at Date Recorded Female 05/09/2021 7:19 PM LEARNING MANAGER documented as of this encounter Last Filed Vital Signs Vital Sign Reading Time Taken Comments Blood Pressure 130/78 07/05/2016 11:18 PM LEARNING MANAGER Pulse 96 07/05/2016 11:18 PM LEARNING MANAGER Temperature 37.3 ??C (99.1 ??F) 07/05/2016 9:13 PM LEARNING MANAGER Respiratory Rate 18 07/05/2016 9:13 PM LEARNING MANAGER Oxygen Saturation 100% 07/05/2016 11:18 PM LEARNING MANAGER Inhaled Oxygen Concentration - - Weight - - Height - - Body Mass Index - - documented in this encounter Discharge Instructions Discharge InstructionsAshkan Bejarano MD - 07/05/2016 11:07 PM LEARNING MANAGER Indigestion (Dyspepsia or Heartburn): Care Instructions Your Care Instructions Sometimes it can be hard to pinpoint the cause of indigestion (dyspepsia or heartburn). Most cases of an upset stomach with bloating, burning, burping, and nausea are minor and go away within several hours. Home treatment and qlgw-cje-cmvyrwc medicine often are able to control symptoms. But if you take medicine to relieve your indigestion without making diet and lifestyle changes, your symptoms are likely to return again and again. If you get indigestion often, it may be a sign of a more serious medical problem. Be sure to follow up with your doctor, who may want to do tests to be sure of the cause of your indigestion. Follow-up care is a wilkins part of your treatment and safety. Be sure to make and go to all appointments, and call your doctor if you are having problems. It???s also a good idea to know your test resultsand keep a list of the medicines you take. How can you care for yourself at home? ?? Your doctor may recommend jhpx-jyb-fklsbrp medicine. For mild or occasional indigestion, antacidssuch as Tums, Gaviscon, Mylanta, or Maalox may help. Your doctor also may recommend wtii-ikg-pssrdnfmgwv reducers, such as Pepcid AC, Tagamet HB, Zantac 75, or Prilosec. Read and follow all instructions on the label. If you use these medicines often, talk with your doctor. ?? Change your eating habits. ?? It???s best to eat several small meals instead of two or three large meals. ?? After you eat, wait 2 to 3 hours before you lie down. ?? Chocolate, mint, and alcohol can make GERD worse. ?? Spicy foods, foods that have a lot of acid (like tomatoes and oranges), and coffee can make GERD symptoms worse in some people. If your symptoms are worse after you eat a certain food, you may want to stop eating that food to see if your symptoms get better. ?? Do not smoke or chew tobacco. Smoking can make GERD worse. If you need help quitting, talk to your doctor about stop-smoking programs and medicines. These can increase your chances of quitting for good. ?? If you have GERD symptoms at night, raise the head of your bed 6 to 8 inches by putting the frameon blocks or placing a foam wedge under the head of your mattress. (Adding extra pillows does not work.) ?? Do not wear tight clothing around your middle. ?? Lose weight if you need to. Losing just 5 to 10 pounds can help. ?? Do not take anti-inflammatory medicines, such as aspirin, ibuprofen (Advil, Motrin), or naproxen (Aleve). These can irritate the stomach. If you need a pain medicine, try acetaminophen (Tylenol), which does not cause stomach upset. When should you call for help? Call 911 anytime you think you may need emergency care. For example, call if: ?? You passed out (lost consciousness). ?? You vomit blood or what looks like coffee grounds. ?? You pass maroon or very bloody stools. ?? You have chest pain or pressure. This may occur with: ?? Sweating. ?? Shortness of breath. ?? Nausea or vomiting. ?? Pain that spreads from the chest to the neck, jaw, or one or both shoulders or arms. ?? Feeling dizzy or lightheaded. ?? A fast or uneven pulse. After calling 911, chew 1 adult-strength aspirin. Wait for an ambulance. Do not try to drive yourself. Call your doctor now or seek immediate medical care if: ?? You have severe belly pain. ?? Your stools are black and tarlike or have streaks of blood. ?? You have trouble swallowing. ?? You are losing weight and do not know why. Watch closely for changes in your health, and be sure to contact your doctor if: ?? You do not get better as expected. Where can you learn more? 1. Go to [employer]/Godengo or [employer]/Andel. 2. Enter W912 in the search box. Current as of: May 14, 2015 Content Version: 109 ?? [id number] [employer], [employer]. NING MANAGER documented in this encounter Medications at Time [...] documented as of this encounter ED Notes Rufina Kee RN - 07/05/2016 11:18 PM CST Emergency Center Nursing Discharge Note Discharge vital signs: BP 130/78 mmHg Pulse 96 Temp(Src) 37.3 ??C (99.1 ??F) (Oral) Resp 18 SpO2 100% The patient was given printed discharge papers and signed to verify that she received the information and understands the instructions. Teach back method was used in reviewing the discharge instructions and the patient verbalized her understanding. The patient denied having unanswered questions when asked. The patient denied potential challenges to this plan when asked. The patient denied additional needs at discharge when asked. The patient was safely discharged to home. NING MANAGER Ashkan Bejarano MD - 07/05/2016 9:32 PM CST Chief Complaint: Epigastric pain HPI: Idania Duarte is a 41 y.o. female with IBS who presents to the emergency center for evaluation of epigastric pain. The patient reports having epigastric pain since Sunday, 06/27 and has tried Prilosecand Tums for the past week because she thought she had an ulcer but nothing seemed to alleviate her symptoms. Her abdominal pain is a burning sensation that moves up and down in the middle of her abdomen. She also states having back pain going into the right side. Her symptoms worsen with eating or drinking and is unable to get comfortable. The patient is also nauseated. She had blood drawn at [facility] today, 07/05, with a white count of 11.3 and lipase of 354. She stopped taking her Topamax, which she has been taking for about a week and she thought that might be a cause for her symptoms. Medications: amitriptyline (ELAVIL) 25 MG tablet Calcium Carbonate Antacid 1000 MG dicyclomine (BENTYL) 20 MG tablet mesalamine (CANASA) 1000 MG suppository mesalamine (LIALDA) 1.2 G enteric coated tablet norethindrone-eth estradiol (NORINYL,ORTHONOVUM) 1-35 MG-MCG tablet Phentermine HCl (ADIPEX-P) 37.5 MG tablet topiramate (TOPAMAX) 25 MG tablet triamterene-hydrochlorothiazide (MAXZIDE-25) 37.5-25 MG tablet Allergies: Patient has no known allergies to medications. Past Medical History: Clostridium difficile colitis Irritable bowel syndrome Malignant melanoma of skin of trunk, except scrotum Chronic headaches BCC (basal cell carcinoma), leg HTN (hypertension) Concussion Overweight History of tobacco use Past Surgical History: Tonsillectomy Cyst removal Family History: The patient has no past pertinent family history. Social History: The patient is single. She is a former smoker of 0.25 packs/day for 15 years. She reports rare alcohol consumption. Review of Systems Gastrointestinal: Positive for nausea and abdominal pain (epigastric). Musculoskeletal: Positive for back pain. All other systems reviewed and are negative. Triage Vitals Temp 07/05/162112 37.3 ??C (99.1 ??F) Temp src 07/05/162112 Oral Pulse 07/05/162112 116 Resp 07/05/162112 18 BP 07/05/162112 152/88 mmHg SpO2 07/05/162112 97 % Physical Exam Gen: Patient well nourished. HEENT: EOMI, no conjunctival injection Abd: Epigastric discomfort. Soft non-tender and non-distended. MSK: Warm and well perfused. Moving all 4 extremities without difficulty. no obvious deformities. Neuro: Cranial nerves grossly intact, no apparent deficits. Sensation intact to light touch in the upper and lower extremities. Skin: No rashes or areas of ecchymosis Psych: Normal affect. Appropriate insight. Procedures: None ECG: None Imaging: US Abd RUQ Organs IMPRESSION: Cholelithiasis without sonographic findings of cholecystitis. Report per radiology (please see formal Radiology report for further details). Laboratory: CBC: WNL (WBC 10.4, HGB 14.3, HCT 41.5, PLT 352) BMP: Glu 104 (high), K 3.3 (low), o/w WNL (Creat 0.78) LFT: WNL (AST 16, ALT 18) Anion gap: 10 Interventions: None ED Course: Nursing notes and vitals were reviewed. Past medical records were reviewed. I performed an exam of the patient as detailed above. The above imaging study and laboratory studies were ordered. Findings and plan explained to the patient. I fully addressed and answered all questions and concerns the patient had. The patient was given prescription for [place]. The patient was discharged home with instructions regarding supportive care, medications, and reasons to return as well as the importance of close follow-up was reviewed. New Prescriptions HYDROCODONE-ACETAMINOPHEN (NORCO) 5-325 MG TABLET Take 1 Tab by mouth every 6 hours as needed for Pain. Last EC Vitals: Temp: 37.3 ??C (99.1 ??F) (07/05 2112) Temp src: Oral (07/05 2112) Pulse: 114 (07/05 2131) Resp: 18 (07/05 2112) BP: 152/88 mmHg (07/05 2112) SpO2: 96 % (07/05 2131) Medical Decision Making: Pleasant 41 y.o. female employed in [employer] presenting to the ER with chief complaint of epigastric pain lasting upwards of one week. Patient has tried over the counter antiacids but not has not had much relief. Seen in urgent care prior to evaluation in the ER, at that point basic lab revealed an elevated lipase but no associated leukocytosis. Exam in the ER reveals epigastric discomfort although patient is not in apparent distress. Differential definitively concerning for pancreatitis, choledocholithiasis, or cholelithiasis versus acute cholecystis. Labs revealed no elevation of LFTs, whitecount of 10.4, ultrasound obtained did reveal evidence for cholelithiasis, common bile duct was at the upper limit of normal for her age at 0.7 cm. I did speak with Dr. Mccarty of the department of GI todiscuss appropriate plan of care, he recommended an upper endoscopy which he will have his schedulercall patient in the next 24 hours to set up. In the meantime, patient has been asked to antiacids, which she has already doing, I will add on [place] for her pain. I did discuss with patient my concern for possible ulcer or evidence of choledocholithiasis but given the absence of elevated LFTs at this point gastric ulcer is higher on the differential. Patient understands the plan at this time and will be discharge in stable condition. Impression: Final diagnoses: [K80.20] Calculus of gallbladder without cholecystitis without obstruction [R10.13] Epigastric pain Plan: Discharge home I, Arlet Thompson, am serving as a scribe to document services personally performed by Dr. Bejarano based on my observations and the provider's statements to me. 07/05/2016 [facility] Ashkan Bejarano MD 07/06/16 0421 NING MANAGER Paty Barajas HUC - 07/05/2016 8:39 PM CST Referred from by Dr. Ty for epigastric pain. Background/plan: 11 white count, Lipase 354. Evaluate Means of arrival: private vehicle Call back: none NING MANAGER documented in this encounter Plan of Treatment Upcoming Encounters Date Type Specialty Care Team Description 05/05/2022 Appointment Chemo Therapy/Infusion Services 09/15/2022 Telemedicine Gastroenterology Eusebio Haines MD [address] [place] [address] (Wo rk) documented as of this encounter Procedures Procedure Name Priority Date/Time Associated Diagnosis Comme nts US ABD RUQ ORGANS STAT 07/05/2016 10:48 PM Res ults for this LEARNING MANAGER procedure are i n the results section. COMPLETE BLOOD STAT 07/05/2016 10:10 PM Result s for this COUNT-NO DIFF LEARNING MANAGER procedure are in the results section. EMERGENCY CENTER STAT 07/05/2016 10:09 PM Resu lts for this DRAW AND HOLD LEARNING MANAGER procedure are in the results section. ANION GAP STAT 07/05/2016 10:09 PM Results for this LEARNING MANAGER procedure are i n the results section. LIVER PANEL(HEPATIC STAT 07/05/2016 10:09 PM R esults for this FUNCTION PANEL) LEARNING MANAGER procedure ar e in the results section. BASIC METABOLIC STAT 07/05/2016 10:09 PM Resul ts for this PANEL LEARNING MANAGER procedure are i n the results section. documented in this encounter Results US Abd RUQ Organs (07/05/2016 10:48 PM LEARNING MANAGER) Anatomical Region Laterality Modality Abdomen Ultrasound Specimen (Source) Anatomical Collection Method Collection Time Re ceived Time Location / / Volume Laterality 07/05/2016 10:23 PM LEARNING MANAGER Impressions 07/05/2016 10:51 PM LEARNING MANAGER IMPRESSION: Cholelithiasis without sonographic findings of cholecystitis. Narrative 07/05/2016 10:51 PM LEARNING MANAGER COMPARISON: ??None. FINDINGS: ?? Pancreas: Appears unremarkable. Liver: Contour appears unremarkable. Par enchyma appears unremarkable. Gallbladder: Cholelithiasis without clive cholecystic fluid. Sonographic Goldman's Sign: No. CBD: .70 cm. Right Kidney: Measures 9.9 x 4.7 x 4.9 c m. Appears unremarkable. Ascites: None. Procedure Note Jordana Estrada MD - 07/05/2016Fo rmatting of this note might be different from the original. COMPARISON: None. FINDINGS: Pancreas: Appears unremarkable. Liver: Contour appears unremarkable. Par enchyma appears unremarkable. Gallbladder: Cholelithiasis without clive cholecystic fluid. Sonographic Goldman's Sign: No. CBD: .70 cm. Right Kidney: Measures 9.9 x 4.7 x 4.9 c m. Appears unremarkable. Ascites: None. IMPRESSION IMPRESSION: Cholelithiasis without sonog raphic findings of cholecystitis. Ashkan Bejarano MD RAD US Complete Blood Count-No Diff (07/05/2016 10:10 PM LEARNING MANAGER) P athologist Signature White Blood Cell 10.4 3.8 - 11.0 PN SOFT Count k/cmm Red Blood Cell 4.66 3.70 - PN SOFT Count 5.20 m/cmm Hemoglobin 14.3 11.8 - PN SOFT 15.5 g/dL Hematocrit 41.5 35.0 - PN SOFT 46.0 % Mean Corpuscular 89.1 80.0 - PN SOFT Volume 100.0 fL RDW 12.6 11.0 - PN SOFT 15.0 % Platelet Count 352 140 - 450 PN SOFT k/cmm Specimen Anatomical Collection Method Collection Time Receive d Time (Source) Location / / Volume Laterality 07/05/2016 10:10 07/05/2016 PM LEARNING MANAGER 10:18 PM LEARNING MANAGER Narrative PN SOFT - 07/05/2016 10:23 PM LEARNING [place]NA[place] [address] CLIA number [id number] Ashkan Bejarano MD LAB_1 Performing Organization Address City/[facility] Phon e Number PN SOFT [address] [place] [address] Emergency Center Draw And Hold (07/05/2016 10:09 PM LEARNING MANAGER) athologist Signature Emergency Drawn PN SOFT Center Draw And Hold Extra Lavender Drawn PN SOFT Top Drawn Extra PST Top Drawn PN SOFT Drawn Extra SST Top Drawn PN SOFT Drawn Specimen Anatomical Collection Method Collection Time Receive d Time (Source) Location / / Volume Laterality 07/05/2016 10:09 07/05/2016 PM LEARNING MANAGER 10:18 PM LEARNING MANAGER Narrative PN SOFT - 07/06/2016 1:07 AM LEARNING MANAGER Performed at [address] [address] CLIA number [id number] Ashkan Bejarano MD LAB_1 Performing Organization Address City/[facility] Phon e Number PN SOFT [address] [place] [address] Anion Gap (07/05/2016 10:09 PM LEARNING MANAGER) athologist Signature ANION GAP 10 0 - 16 mEq/L PN SOFT Specimen Anatomical Collection Method Collection Time Receive d Time (Source) Location / / Volume Laterality 07/05/2016 10:09 07/05/2016 PM LEARNING MANAGER 10:18 PM LEARNING MANAGER Narrative PN SOFT - 07/05/2016 10:38 PM LEARNING MANAGER Performed at [place] [address] CLIA number [id number] Ashkan Bejarano MD LAB_1 Performing Organization Address [facility] Phon e Number PN SOFT [address] [place] [address] Hepatic Function Panel (07/05/2016 10:09 PM LEARNING MANAGER) [facility] gist Method Time Signature Alk Phos 102 40 - 150 PN SOFT U/L Bilirubin Total 0.3 0.2 - 1.2 PN SOFT mg/dL Bilirubin, Direct 0.2 0.0 - 0.5 PN SOFT mg/dL Protein Total, Serum 7.1 6.4 - 8.3 PN SOFT g/dL Albumin 3.4 3.4 - 5.0 PN SOFT g/dL Aspartate 16 10 - 40 PN SOFT Aminotransferase U/L Alanine 18 9 - 55 PN SOFT Aminotransferase U/L Specimen Anatomical Collection Method Collection Time Receive d Time (Source) Location / / Volume Laterality 07/05/2016 10:09 07/05/2016 PM LEARNING MANAGER 10:18 PM LEARNING MANAGER Narrative PN SOFT - 07/05/2016 10:38 PM LEARNING MANAGER Performed at [address] [address] CLIA number [id number] Ashkan Bejarano MD LAB_1 Performing Organization Address [facility] Phon e Number PN SOFT [address] [place] [address] (ABNORMAL) Basic Metabolic Panel (07/05/2016 10:09 PM LEARNING MANAGER) athologist Signature Creatinine 0.78 0.55 - PN SOFT Serum 1.02 mg/dL Lab Glucose 104 (H) 70 - 100 PN SOFT mg/dL Comment: The stated glucose range is for the fast ing state. Non-fasting glucose range is 70-180 mg/d L CO2 25 22 - 31 mmol/L PN SOFT Chloride 103 98 - 109 mmol/L PN SOFT Potassium 3.3 (L) 3.5 - 5.2 mmol/L PN SOFT Sodium 138 136 - 145 mmol/L PN SOFT Blood Urea Nitrogen 11 9 - 26 mg/dL PN SOFT Calcium [...] Time (Source) Location / / Volume Laterality 07/05/2016 10:09 07/05/2016 PM LEARNING MANAGER 10:18 PM LEARNING MANAGER Narrative PN SOFT - 07/05/2016 10:38 PM LEARNING MANAGER Performed at [facility], [address] [place] [address] CLIA number [id number] Ashkan Bejarano MD LAB_1 Performing Organization Address City/State/[facility] Code Phon e Number PN SOFT [address] [place] [address] [phone] documented in this encounter Visit Diagnoses Diagnosis Calculus of gallbladder without cholecys titis without obstruction Calculus of gallbladder without mention of cholecystitis or obstruction Epigastric pain Abdominal pain, epigastric Triage Assessment Note - Alejandro Matias, RN - 07/05/2016 9:11 PM CST To UC for mid upper/RUQ around to back discomfort. WBC 11.3, Lipase 354 Sent to ER for cont. Studies. Denies Pre-Hospital Treatment for pain/fever in the past 4 to 6 hours. Continous BCP NING MANAGER documented in this encounter Care Teams Mold Bunch Trimmer Relationship Specialty Start Date End Date Found, No Pcp, PCP - General 07/05/16 07/11/16 [address] [place] [address] documented as of this encounter
--- OUTSIDE RECORDS SUMMARY | 2022-03-20 16:14 | XMS_ITS | Encounter Summary ---
:1975 Author Organization [employer] Address [address] [place] [address] Care Team Providers Name Role Phone Found, No Pcp Primary Care Provider Unavailable Reason for Referral Consult/Transfer Care (Routine) - Closed Specialty Diagnoses / Procedures Referred By Contact Refer red To Contact Diagnoses Calculus of bile duct without cholangitis or biliary obstruction Eduardo Vasquez MD [address] [place], [place] [address] Referral ID Status Reason Start Date Expiration Date Visits Requ ested Visits Authorized [id number] Closed 07/06/2016 10/05/2017 1 1 Scheduling Instructions Your provider has recommended an appoint ment with [facility] Surgery. You may call [phone] to schedule your a ppointment. If you do not schedule an appointment within the next 1 to 3 in days, we will call you to help arrange your appointment. We suggest you call [employer] about your coverage and benefits for this appointme nt. OM DRESSMAKER Reason for Visit Reason Onset Date Comments APPOINTMENT REQUEST 07/06/2016 Encounter Details Date Type Department Care Team Description 07/06/2016 Telephone Specialty Center 0778 Angelo Vasquez MD APPOINTMENT REQUEST Endoscopy [address] [place] [id number] [phone] Social History Tobacco Use Types Packs/Day Years [...] at Date Recorded Female 05/09/2021 7:19 PM CUSTOM DRESSMAKER documented as of this encounter Nursing Notes Beth Nichols RN - 07/07/2016 8:36 AM CST Pt notified and verbalized understanding of below. Warm transferred to surgery scheduling. Pt to call back if any further questions or concerns. OM DRESSMAKER Eduardo Vasquez MD - 07/06/2016 12:17 PM CST Please arrange general surgery consult for gallstones. Ordered OM DRESSMAKER documented in this encounter Plan of Treatment Upcoming Encounters Date Type Specialty Care Team Description 05/05/2022 Appointment Chemo Therapy/Infusion Services 09/15/2022 Telemedicine Gastroenterology Eusebio Haines MD [address] [place], [place] [address] (Wo rk) Scheduled Referrals Name Type Priority Associated Diagnoses Order S chedule Surgery Consult-Adults Referral Routine Calculus of bile d uct Ordered: 07/06/2016 without cholangitis or biliary obstruction documented as of this encounter Visit Diagnoses Diagnosis Calculus of bile duct without cholangiti s or biliary obstruction - Primary documented in this encounter Care Teams Technology Support Analyst Relationship Specialty Start Date End Date Found, No Pcp, PCP - General 07/05/16 07/11/16 [address] [place] [address] documented as of this encounter
--- OUTSIDE RECORDS SUMMARY | 2022-03-20 16:14 | XMS_ITS | Encounter Summary ---
:1975 Author Organization [employer] Address [address], [place] [address] Care Team Providers Name Role Phone Sheeba Castillo APRN, CNP Primary Care Provider [phone] Reason for Visit Reason Comments Nausea surgery 07/12/16 FEVER DIARRHEA Encounter Details Date Type Department Care Team Description 07/17/2016 Office Visit [facility] Fernanda Lancaster Abd ominal pain, generalized (Primary Dx); Practice PA-C Nausea; [address] [place] [address] [facility] [place], [place] [address] [phone] Social History Tobacco Use Types Packs/Day Years [...] at Date Recorded Female 05/09/2021 7:19 PM STENCIL MAKER documented as of this encounter Last Filed Vital Signs Vital Sign Reading Time Taken Comments Blood Pressure 115/81 07/17/2016 9:10 AM STENCIL MAKER Pulse 119 07/17/2016 9:10 AM STENCIL MAKER Temperature 36.9 ??C (98.5 ??F) 07/17/2016 9:10 AM STENCIL MAKER Respiratory Rate 20 07/17/2016 9:10 AM STENCIL MAKER Oxygen Saturation - - Inhaled Oxygen Concentration - - Weight 88.4 kg (194 lb 12.8 oz) 07/17/2016 9:10 AM STENCIL MAKER Height 168.3 cm (5' 6.25) 07/17/2016 9:10 AM STENCIL MAKER Body Mass Index 31.2 07/17/2016 9:10 AM STENCIL MAKER documented in this encounter Progress Notes Fernanda Lancaster PA-C - 07/17/2016 12:33 PM CST S: Idania Duarte is a 41 y.o. female here for evaluation of nausea, low grade fevers and diarrhea. Nausea and diarrhea are somewhat ongoing, low grade fever past 2-3 days. 100.3 last night. No temp thismorning. She is s/p cholecystectomy on 07/12/16 for biliary colic. Did have nausea prior to surgery, possibly related to cholelithiasis. Diarrhea isn't entirely unusual for her as she does have colitis.Has not had blood in her stool. 6 episodes of diarrhea yesterday. Her appetite is improved but the nausea prevents her from eating much. If she does it she has a BM shortly after. Some abdominal discomfort and bloating on the left side. Denies any issues with her incisions from surgery - no drainage or redness. Last dose of [place] was over 24 hours ago. Has been using ibuprofen and tylenol. Tried zofran at home a couple of times but didn't seem to help. Also had some issues with low potassium level leading up to surgery. Took two doses of potassium after her pre op. Potassium level checked on 07/12 and still low so was given a daily Rx for potassium which she filled yesterday. Took 1 yesterday and 1 today. Denies dizziness, chest pain, SOB, headache. O: BP 115/81 mmHg Pulse 119 Temp(Src) 98.5 ??F (36.9 ??C) (Oral) Resp 20 Ht 5' 6.25 (1.683 m) Wt 194 lb 12.8 oz (88.361 kg) BMI 31.20 kg/m2 Vitals reviewed by me. Gen: alert, moves around the room without difficulty, doesn't appear in pain or uncomfortable. CV: RRR, normal S1, S2, no murmur or gallop Lungs: Clear to auscultation bilaterally Abd: normal bowel sounds. 4 small abdominal incisions covered with steri strips. No visible erythemaor drainage, although strips were not removed. Abdomen is soft, mild LUQ tenderness without rebound or guarding. No masses. A: Nausea Abdominal pain Diarrhea P: 1) check BMP and CBC today, if okay will continue to monitor sx. 2) Rx for promethazine 25mg tabs for nausea. Drew diet, push fluids. Fernanda Lancaster PA-C 07/17/2016, 12:42 PM CIL MAKER documented in this encounter Plan of Treatment Upcoming Encounters Date Type Specialty Care Team Description 05/05/2022 Appointment Chemo Therapy/Infusion Services 09/15/2022 Telemedicine Gastroenterology Eusebio Haines MD [address] [place] [address] (Wo rk) documented as of this encounter Results (ABNORMAL) Complete Blood Count-W/Diff (07/17/2016 9:38 AM STENCIL MAKER) [facility] Method Time Signature WBC 13.5 (H) 4.0 - [facility] 11.0 k/ul [facility] RBC 5.08 4.0 - 5.2 [facility] M/ul [facility] Hemoglobin 15.7 12.0 - [facility] 16.0 g/dl LAB[facility] HCT 43.7 36.0 - [facility] 46.0 % [facility] MCV 86.0 80 - 100 [facility] fl [facility] MCH 30.9 26 - 34 [facility] pg [facility] MCHC 35.9 32 - 36 [facility] g/dl [facility] RDW 12.7 11.5 - [facility] 14.5 % [facility] Platelets 439 150 - 450 [facility] k/ul [facility] PMN/Band 63 % [facility] Lymph 21 % [facility] [place] 11 % [facility] Eos 4 % [facility] Baso 0 % [facility] Neutrophil 8.5 (H) 1.8 - 7.7 [facility] Absolute k/ul [facility] Lymph Absolute 2.8 1.0 - 4.8 [facility] k/ul [facility] [place] Absolute 1.5 (H) 0.1 - 0.7 [facility] k/ul [facility] Eos Absolute 0.5 0.0 - 0.5 [facility] k/ul [facility] Baso Absolute 0.0 0.0 - 0.2 [facility] k/ul [facility] Immature Gran 1 % [facility] Imm Gran 0.2 (H) 0 k/ul [facility] Absolute [facility] Specimen Anatomical Collection Method Collection Time Receive d Time (Source) Location / / Volume Laterality 07/17/2016 9:38 AM 7 9:39 STENCIL MAKER AM STENCIL MAKER Narrative [facility] - 07/17/2016 3:[address] Performed at [facility], [address] [place] [phone] Fernanda Lancaster PA-C LAB_1 Performing Organization Address City/State/ZIP Code Phon e Number [facility] [phone] (ABNORMAL) Basic Metabolic Panel (07/17/2016 9:38 AM STENCIL MAKER) [facility] gist Method Time Signature Sodium 135 (L) 136 - 145 [facility] mmol/L [facility] Potassium 3.5 3.5 - 5.1 [facility] mmol/L [facility] Chloride 103 98 - 109 [facility] mmol/L [facility] CO2 22 20 - 29 [facility] mmol/L [facility] Anion Gap 10 7 - 16 [facility] (calc.) mmol/L [facility] Glucose 114 70 - 180 [facility] mg/dl [facility] Calcium 8.9 8.4 - [facility] 10.2 [facility] mg/dl BUN 7 7 - 26 [facility] mg/dl [facility] Creatinine 0.61 0.55 - [facility] 1.02 [facility] mg/dl GFR, Estimated >60 >60 [facility] ml/min/1. [facility] 73m2 GFR, Est., If >60 >60 [facility] Black ml/min/1. LAB[facility]ATOR[facility] 73m2 Specimen Anatomical Collection Method Collection Time Receive d Time (Source) Location / / Volume Laterality 07/17/2016 9:38 AM 7 9:39 STENCIL MAKER AM STENCIL MAKER Narrative [facility] - 07/17/2016 4:[address] Performed at [facility] [employer] [facility], [address] [place] [address] ??[id number] Fernanda Lancaster PA-C LAB_1 Performing Organization Address City/State/ZIP Code Phon e Number [facility] [phone] documented in this encounter Visit Diagnoses Diagnosis Abdominal pain, generalized - Primary Nausea Nausea alone Diarrhea, unspecified type Acute hypokalemia Hypopotassemia Abdominal pain, generalized documented in this encounter Care Teams [place] Relationship Specialty Start Date End Date Sheeba Castillo, MANAGER OF TRANSPORTATION, DEPUTY HEAD PCP - General Nurse Practitioner 07/20/16 [id number] [place] [address] documented as of this encounter
--- OUTSIDE RECORDS SUMMARY | 2022-03-20 16:14 | XMS_ITS | Encounter Summary ---
:1975 Author Organization [employer] Address [address], [place] [address] Care Team Providers Name Role Phone Sheeba Castillo APRN, SIERRA Primary Care Provider [phone] Encounter Details Date Type Department Care Team Description 07/17/2016 Lab Visit [facility] Acute hypokalemia; [address] [facility] Abdominal pain, generalized [place], [place] [phone] Social History Tobacco Use Types Packs/Day Years [...] Date Recorded Female 05/09/2021 7:19 PM HEAD ORTHOPEDIC TEAM PHYSICIAN documented as of this encounter Plan of Treatment Upcoming Encounters Date Type Specialty Care Team Description 05/05/2022 Appointment Chemo Therapy/Infusion Services 09/15/2022 Telemedicine Gastroenterology Eusebio Haines MD [address] [place], [place] [id number] (Wo rk) documented as of this encounter Procedures Procedure Name Priority Date/Time Associated Diagnosis Comme nts COMPLETE BLOOD Routine 07/17/2016 9:38 AM Abdominal pain, Resu lts for this COUNT-W/DIFF HEAD ORTHOPEDIC TEAM PHYSICIAN generalized procedure are i n the results section. BASIC METABOLIC Routine 07/17/2016 9:38 AM Abdominal pain, Res ults for this PANEL HEAD ORTHOPEDIC TEAM PHYSICIAN generalized procedure are i n the results section. ELECTROLYTE PANEL Routine 07/17/2016 9:37 AM Acute hypokalemia Results for this HEAD ORTHOPEDIC TEAM PHYSICIAN procedure are i n the results section. documented in this encounter Results (ABNORMAL) Complete Blood Count-W/Diff (07/17/2016 9:38 AM HEAD ORTHOPEDIC TEAM PHYSICIAN) [facility] gist Method Time Signature WBC 13.5 (H) 4.0 [...] [facility] Lymph 21 % [facility] [place] 11 % [facility] Eos 4 % [facility] Baso 0 % [facility] Neutrophil 8.5 (H) 1.8 - 7.7 [facility] Absolute k/ul LAB[facility] Lymph Absolute 2.8 1.0 - 4.8 [facility] k/ul [facility] [place] Absolute 1.5 (H) 0.1 - 0.7 [facility] k/ul [facility] Eos Absolute 0.5 0.0 - 0.5 [facility] k/ul [facility] Baso Absolute 0.0 0.0 - 0.2 [facility] k/ul [facility] Immature Gran 1 % [facility] Imm Gran 0.2 (H) 0 k/ul [facility] Absolute [facility] Specimen Anatomical Collection Method Collection Time Receive d Time (Source) Location / / Volume Laterality 07/17/2016 9:38 AM 7 9:39 HEAD ORTHOPEDIC TEAM PHYSICIAN AM HEAD ORTHOPEDIC TEAM PHYSICIAN Narrative [facility] - 07/17/2016 3:[address] Performed at [facility], [address] [place] [phone] Fernanda Lancaster PA-C LAB_1 Performing Organization Address City/[facility]/ZIP Code Phon e Number [facility] [phone] (ABNORMAL) Basic Metabolic Panel (07/17/2016 9:38 AM HEAD ORTHOPEDIC TEAM PHYSICIAN) Patholo gist Method Time Signature Sodium 135 (L) [...] Volume Laterality 07/17/2016 9:38 AM 7 9:39 HEAD ORTHOPEDIC TEAM PHYSICIAN AM HEAD ORTHOPEDIC TEAM PHYSICIAN Narrative [facility] - 07/17/2016 4:[address] Performed at [facility], [address] [place] [phone] Fernanda Lancaster PA-C LAB_1 Performing Organization Address City/[facility]/ZIP Code Phon e Number [facility] [phone] Electrolyte Panel (07/17/2016 9:37 AM HEAD ORTHOPEDIC TEAM PHYSICIAN) P athologist Signature Sodium 136 136 - 145 [facility] mmol/L [facility] Potassium 3.6 3.5 - 5.1 [facility] mmol/L [facility] Chloride 101 98 - 109 [facility] mmol/L [facility] CO2 23 20 - 29 [facility] mmol/L [facility] Anion Gap 12 7 - 16 [facility] (calc.) mmol/L [facility] Specimen Anatomical Collection Method Collection Time Receive d Time (Source) Location / / Volume Laterality 07/17/2016 9:37 AM 7 9:38 HEAD ORTHOPEDIC TEAM PHYSICIAN AM HEAD ORTHOPEDIC TEAM PHYSICIAN Narrative [facility] - 07/17/2016 4:[address] Performed at [facility], [address], [place], [place] ??[phone] Sheeba Castillo APRN, CNP LAB_1 Performing Organization Address City/State/ZIP Code Phon e Number [facility] [phone] documented in this encounter Visit Diagnoses Diagnosis Acute hypokalemia Hypopotassemia Abdominal pain, generalized documented in this encounter Care Teams Grant Manager Relationship Specialty Start Date End Date Sheeba Castillo APRN, CNP PCP - General Nurse Practitioner 07/13/16 07/17/[address] [place] [address] documented as of this encounter
--- OUTSIDE RECORDS SUMMARY | 2022-03-20 16:14 | XMS_ITS | Encounter Summary ---
:1975 Author Organization [employer] Address [address], [place] [address] Care Team Providers Name Role Phone Found, No Pcp MD Primary Care Provider Unavailable Reason for Visit Reason Comments Abdominal Pain Encounter Details Date Type Department Care Team Description 07/05/2016 Hospital Encounter [facility] Berkley Ty A bdominal pain, unspecified location; Care MD Acute pancreatitis, unspecified complica tion status, unspecified pancreatitis type [address] [facility] [address] [place] [address] [phone] Social History Tobacco Use Types Packs/Day Years [...] at Date Recorded Female 05/09/2021 7:19 PM GAUGE OPERATOR documented as of this encounter Last Filed Vital Signs Vital Sign Reading Time Taken Comments Blood Pressure 143/92 07/05/2016 5:32 PM GAUGE OPERATOR Pulse 117 07/05/2016 5:32 PM pt states her pulse GAUGE OPERATOR is always high Temperature 37 ??C (98.6 ??F) 07/05/2016 5:32 PM GAUGE OPERATOR Respiratory Rate 16 07/05/2016 5:32 PM GAUGE OPERATOR Oxygen Saturation 98% 07/05/2016 5:32 PM GAUGE OPERATOR Inhaled Oxygen - - Concentration Weight - - Height - - Body [...] tablet mouth 4 times daily as needed. mesalamine ([place]) Place 1 suppository 30 suppository [...] documented as of this encounter ED Notes Berkley Ty MD - 07/05/2016 8:24 PM CST NAME: IGGY DUARTE MR#: [id number] CSN: [id number] AUTHENTICATING CLINICIAN: Berkley Ty MD CONFIRM #: [id number] LOC: 520 URGENT CARE PROGRESS NOTE DATE OF VISIT: 07/05/2016 : 1975 Iggy is a 41-year-old female here today complaining of abdominal pain. She says that this started last Sunday. She has a variety of ideas she considers possible causes. She says she had fallen and hit her knee on her chest. She had also been started on Topamax 12.5 mg that she took from Sunday through Sunday. Her abdominal pain is in her upper abdomen. It basically extends from her umbilicus to the bottom of her sternum. It goes to her back. She says that the pain is across her abdomen and she cannot differentiate whether it is more on the right than the left and instead primarily thinks it is right in the center. She says that if she eats or drinks anything, the pain is worse. If she drinks, she says that when the liquid hits her stomach it is painful. She describes this as a sharp burning pain. She feels it constantly, but it becomes worse in waves. She also has some mild cramping in her low abdomen. She has nausea, but no vomiting. She first told me she had not had fevers or chills, but then she said she felt hot all day despite everyone else being cold. She says she has no diarrhea or constipation, but she says she always has some blood in her stools related to taking mesalamine suppositories. Note that she does have ulcerative colitis and she does not relate the blood to that. She rarely takes NSAIDs and has not taken any more than usual recently. Sunday she started taking omeprazo le. She took it twice a day Sunday and 3 times a day since. She has been using Tums and Mylanta without relief. A separate issue she mentions is that she has had a red rash on her heels today that mason and hurts when she walks. No new soaps, shoes, socks. PAST HISTORY: Updated and reviewed on [employer]. MEDICATIONS: Updated and reviewed on [employer]. ALLERGIES: Updated and reviewed on [employer]. SOCIAL HISTORY: She is a nonsmoker. She drinks 3-4 alcoholic beverages a week and not more than that. 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 OBJECTIVE: VITAL SIGNS: Reviewed on [employer]. GENERAL: Alert, pleasant, and in no acute distress. Oral mucous membranes moist. ABDOMEN: Soft. She has normoactive bowel sounds. She is tender in the epigastrium and slightly to the right upper quadrant. She is mildly to moderately tender. No guarding or rebound. Her labs today include a comp metabolic profile. Her glucose is slightly above normal at 110, but this is nonfasting. Her liver function tests within the [facility] were normal. I did a lipase and it was elevated at 354. Her CBC showed a white count very slightly elevated at 11.3, but not left-shifted. Her hemoglobin was normal at 14.1, platelets 403. Her urine essentially unremarkable, 5-9 white cells, butagain she had no specific UTI type symptoms. ASSESSMENT: Acute pancreatitis. PLAN: I discussed with the patient that her significantly elevated lipases along with the kind of pain shedescribes is consistent with acute pancreatitis. Discussed the most common cause of this is gallstones. I am seeing her back with her labs after our urgent care closing time, so I am not able to obtainany imaging studies at this point. I explained to her that that is the next step in evaluating this.I discussed with her that it is very typical that patients are admitted to the hospital with pancreatitis for further treatment, particularly once they have had imaging to determine what is potentiallycausing this. I have recommended she present to the emergency room for further evaluation and treatme nt in consideration of whether she should be admitted to the hospital once more is known about this.She is going to go to [facility] and I have contacted [facility] to let them know she will be coming. She is safe to drive herself there. CELI:EAN C: CONFIRM #: [id number] E OPERATOR Berkley Ty MD - 07/05/2016 8:21 PM CST Full note to be dictated. Patient c/o epigastric pain radiating to back since Sunday. Nausea. Can'tget comfortable. Worse if eats or drinks anything. Tender epigastrium and slightly to right. WBC 11.3 and lipase 354. At this point of the night I cannot obtain imaging so I've recommended further evaluation in the emergency room. [facility] E OPERATOR documented in this encounter Plan of Treatment Upcoming Encounters Date Type Specialty Care Team Description 05/05/2022 Appointment Chemo Therapy/Infusion Services 09/15/2022 Telemedicine Gastroenterology Eusebio Haines MD [address] [place] [address] (Wo rk) documented as of this encounter Procedures Procedure Name Priority Date/Time Associated Diagnosis Comme nts COMPLETE BLOOD STAT 07/05/2016 7:39 PM Abdominal pain, Resu lts for this COUNT-W/DIFF GAUGE OPERATOR unspecified location procedu re are in the results section. COMP METABOLIC PANEL STAT 07/05/2016 7:39 PM Abdominal pain , Results for this GAUGE OPERATOR unspecified location procedu re are in the results section. DIFFERENTIAL STAT 07/05/2016 7:39 PM Results f or this GAUGE OPERATOR procedure are i n the results section. LIPASE STAT 07/05/2016 7:39 PM Abdominal pain, Result s for this GAUGE OPERATOR unspecified location procedu re are in the results section. URINE MICROSCOPIC STAT 07/05/2016 7:31 PM Abdominal pain, R esults for this GAUGE OPERATOR unspecified location procedu re are in the results section. URINALYSIS STAT 07/05/2016 7:31 PM Abdominal pain, Result s for this ROUTINE(MICRO IF POS) GAUGE OPERATOR unspecified locatio n procedure are in the results section. documented in this encounter Results Differential (07/05/2016 7:39 PM GAUGE OPERATOR) P athologist Signature Absolute 6.5 1.8 - 8.0 PN SOFT Neutrophils k/cmm Absolute 3.4 1.1 - 4.0 PN SOFT Lymphocytes k/cmm Absolute 0.8 0.2 - 0.8 PN SOFT Monocytes k/cmm Absolute 0.5 0.0 - 0.5 PN SOFT Eosinophils k/cmm Absolute 0.0 0.0 - 0.2 PN SOFT Basophils k/cmm Immature 0.4 0.0 - 0.5 PN SOFT Granulocytes % Specimen Anatomical Collection Method Collection Time Receive d Time (Source) Location / / Volume Laterality 07/05/2016 7:39 PM 7 7:39 GAUGE OPERATOR PM GAUGE OPERATOR Narrative PN SOFT - 07/05/2016 7:42 PM GAUGE OPERATOR Performed at [facility], [address] [place] [address] CLIA number [id number] Berkley Ty MD LAB_1 Performing Organization Address [facility] Phon e Number PN SOFT [address] [place] [address] (ABNORMAL) Lipase (LIPAS) (07/05/2016 7:39 PM GAUGE OPERATOR) P athologist Signature Lipase 354 (H) 8 - 78 U/L PN SOFT Specimen Anatomical Collection Method Collection Time Receive d Time (Source) Location / / Volume Laterality 07/05/2016 7:39 PM 7 7:39 GAUGE OPERATOR PM GAUGE OPERATOR Narrative PN SOFT - 07/05/2016 7:59 PM GAUGE OPERATOR Performed at [facility], [facility] [address] [place] [address] CLIA number [id number] Berkley Ty MD LAB_1 Performing Organization Address [facility] Phon e Number PN SOFT [address] [place] [address] (ABNORMAL) Comp Metabolic Panel (07/05/2016 7:39 PM GAUGE OPERATOR) Patholo gist Method Time Signature Aspartate 18 10 - 40 PN SOFT Aminotransferase U/L Lab Glucose 110 (H) 70 - 100 PN SOFT mg/dL Comment: The stated glucose range is for the fast ing state. Non-fasting glucose range is 70-180 mg/d L Bilirubin Total 0.3 0.2 - 1.2 mg/dL PN SOFT Calcium 9.2 8.4 - 10.2 mg/dL PN SOFT Sodium 138 136 - 145 mmol/L PN SOFT Potassium 3.6 3.5 - 5.2 mmol/L PN SOFT Blood Urea Nitrogen 12 9 - 26 mg/dL PN SOFT Albumin 3.5 3.4 - 5.0 g/dL PN SOFT Chloride 100 98 - 109 mmol/L PN SOFT Alk Phos 105 40 - 150 U/L PN SOFT Protein Total, Serum 7.7 6.4 - 8.3 g/dL PN S OFT Creatinine Serum 0.80 0.55 - 1.02 mg/dL PN SO FT Est GFR Am >60 >60 mL/min/1.73m2 PN SOFT Est GFR Non-Afr Am >60 >60 mL/min/1.73m2 PN SOFT Comment: Normal>60, moderate decrease 30 - 59, se nay decrease 15 - 29, renal failure <15 mL/min/1.73 m2 NOTE: ??Choose the eGFR result above kenia ropriate for the race of the patient. Alanine Aminotransferase 21 9 - 55 U/L PN S OFT CO2 28 22 - 31 mmol/L PN SOFT Specimen Anatomical Collection Method Collection Time Receive d Time (Source) Location / / Volume Laterality 07/05/2016 7:39 PM 7 7:39 GAUGE OPERATOR PM GAUGE OPERATOR Narrative PN SOFT - 07/05/2016 7:59 PM GAUGE OPERATOR Performed at [facility], [address] [place] [id number] CLIA number [id number] Berkley Ty MD LAB_1 Performing Organization Address City/State/ZIP Code Phon e Number PN SOFT [address] [place] [address] [phone] (ABNORMAL) Complete Blood Count W/Diff (CBC) (07/05/2016 7:39 PM GAUGE OPERATOR) [facility] Method Time Signature White Blood Cell 11.3 (H) 3.8 - 11.0 PN SOFT Count k/cmm Red Blood Cell 4.56 3.70 - PN SOFT Count 5.20 m/cmm Hemoglobin 14.1 11.8 - PN SOFT 15.5 g/dL Hematocrit 40.4 35.0 - PN SOFT 46.0 % Mean Corpuscular 88.6 80.0 - PN SOFT Volume 100.0 fL RDW 12.2 11.0 - PN SOFT 15.0 % Platelet Count 403 140 - 450 PN SOFT k/cmm Specimen Anatomical Collection Method Collection Time Receive d Time (Source) Location / / Volume Laterality 07/05/2016 7:39 PM 7 7:39 GAUGE OPERATOR PM GAUGE OPERATOR Narrative PN SOFT - 07/05/2016 7:42 PM GAUGE OPERATOR Performed at [facility], [address] [place] [address] CLIA number [id number] Berkley yT MD LAB_1 Performing Organization Address [facility] Phon e Number PN SOFT [address] [place] [address] (ABNORMAL) Urine Microscopic (07/05/2016 7:31 PM GAUGE OPERATOR) [facility] Method Time Signature Urine WBC 5-9 (A) 0 - 4 PN SOFT /HPF Urine RBC 0-2 0 - 2 PN SOFT /HPF Bacteria Urine Occasional (A) /HPF PN SOFT Epithelial Few /HPF PN SOFT Cells Specimen Anatomical Collection Method Collection Time Receive d Time (Source) Location / / Volume Laterality 07/05/2016 7:31 PM 7 7:41 GAUGE OPERATOR PM GAUGE OPERATOR Narrative PN SOFT - 07/05/2016 7:48 PM GAUGE OPERATOR Performed at [facility], [address] [place] [address] CLIA number [id number] Berkley Ty MD LAB_1 Performing Organization Address [facility] Phon e Number PN SOFT [address] [place] [address] (ABNORMAL) Urinalysis Routine(Micro If Pos) (07/05/2016 7:31 PM GAUGE OPERATOR) [facility] Method Time Signature Urine Type URINE:clean PN SOFT cat Turbidity Clear Clear PN SOFT U BILI Negative Negative PN SOFT Blood Urine Negative Neg - Trace PN SOFT Glucose, Negative Neg-30 PN SOFT Qualitative U mg/dL Ketones Negative Negative PN SOFT Leukocyte Small (A) Negative PN SOFT Esterase Urine Nitrite Urine Negative Negative PN SOFT pH Urine 5.5 5.0 - 8.0 PN SOFT Protein Urine Negative Neg - Trace PN SOFT mg/dL U Specific 1.015 1.005 - PN SOFT [place] 1.030 Urobilinogen Negative Negative PN SOFT Urine Eu/dL Specimen Anatomical Collection Method Collection Time Receive d Time (Source) Location / / Volume Laterality Urine 07/05/2016 7:31 PM 7 7:41 GAUGE OPERATOR PM GAUGE OPERATOR Narrative PN SOFT - 07/05/2016 7:48 PM GAUGE OPERATOR Performed at [facility], [address] [place] [address] CLIA number [id number] Berkley Ty MD LAB_1 Performing Organization Address City/State/ZIP Code Phon e Number PN SOFT [address] [place] [address] documented in this encounter Visit Diagnoses Diagnosis Abdominal pain, unspecified location Acute pancreatitis, unspecified complica tion status, unspecified pancreatitis type Triage Assessment Note - Ifrah Brasher RN - 07/05/2016 5:28 PM CST C/o epigastric pain, pain feels hot. Also has nausea. Feels spasms in stomach when she swallows. Also has bilat heel pain and redness. Heel pain started today. Pt started Topamax last week. Stopped Topamax Sunday. Pt also fell on ice Sunday and hit her knee into her chest. E OPERATOR documented in this encounter Care Teams Test Clerk Relationship Specialty Start Date End Date Found, No Pcp, PCP - General 07/05/16 07/11/16 [address] [place] [address] documented as of this encounter
--- OUTSIDE RECORDS SUMMARY | 2022-03-20 16:14 | XMS_ITS | Encounter Summary ---
:1975 Author Organization [employer] Address [address] [address] Care Team Providers Name Role Phone Sheeba Castillo APRN, SIERRA Primary Care Provider [phone] Reason for Visit Reason Onset Date Comments Refill 07/12/2016 Encounter Details Date Type Department Care Team Description 07/12/[address] 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 Will F/U with pcp. OGRAPHY ASSISTANT Lori Tapia DO - 07/13/2016 4:19 PM CST 2 tabs was the correct quantity. She doesn't need refills. She will need to f/u with PCP for repeat potassium and to see if she needs more potassium suplpementation in snehal future OGRAPHY ASSISTANT Ashley Osuna RN - 07/13/2016 10:44 AM CST Please advise on the refill for a Pre-Op you did . I see only 2 tabs were ordered but not sure what to do with it. OGRAPHY ASSISTANT Brigid Cho, MARIO - 07/13/2016 8:29 AM PHOTOGRAPHY ASSISTANT From: Idania Duarte To: Chandrika Diez MD Sent: 07/12/2016 10:00 PM PHOTOGRAPHY ASSISTANT Subject: Medication Renewal Request Original authorizing provider: MD Idania Etienne would like a refill of the following medications: potassium chloride (K-DUR,KLOR-CONM) 20 MEQ tablet [Chandrika Diez MD] Preferred pharmacy: [facility] [address] Comment: OGRAPHY ASSISTANT documented in this encounter Plan of Treatment Upcoming Encounters Date Type Specialty Care Team Description 05/05/2022 Appointment Chemo Therapy/Infusion Services 09/15/2022 Telemedicine Gastroenterology Eusebio Haines MD [address] [place], [place] [address] (Wo rk) documented as of this encounter Visit Diagnoses Diagnosis Acute hypokalemia Hypopotassemia documented in this encounter Care Teams Last Picker Relationship Specialty Start Date End Date Sheeba Castillo, MEDICAL CODING SPECIALIST, SCHOOL AGE TEACHER PCP - General Nurse Practitioner 07/13/16 07/17/16 [address] [address] MAG[address]ALENA Dinh [id number] documented as of this encounter
--- OUTSIDE RECORDS SUMMARY | 2022-03-20 16:14 | XMS_ITS | Encounter Summary ---
:1975 Author Organization [employer] Address [address] [place] [address] Care Team Providers Name Role Phone Kinga Pickett APRN, CNP Primary Care Provider [phone] Encounter Details Date Type Department Care Team Description 05/29/[address] [facility] [address] Abnormal weight gain [address] [place], [place] [id number] Social History Tobacco Use Types Packs/Day Years [...] at Date Recorded Female 05/09/2021 7:19 PM SECURITY OPERATIONS ANALYST documented as of this encounter Plan of Treatment Upcoming Encounters Date Type Specialty Care Team Description 05/05/2022 Appointment Chemo Therapy/Infusion Services 09/15/2022 Telemedicine Gastroenterology Eusebio Haines MD [address] [place], [place] [address] (Wo rk) documented as of this encounter Procedures Procedure Name Priority Date/Time Associated Diagnosis Comme nts VITAMIN D Routine 05/29/2016 3:29 PM Abnormal weight gain R esults for this 25-HYDROXY, TOTAL SECURITY OPERATIONS ANALYST procedure are in the results section. INTACT PTH Routine 05/29/2016 3:29 PM Abnormal weight gain R esults for this SECURITY OPERATIONS ANALYST procedure are i n the results section. BASIC METABOLIC Routine 05/29/2016 3:29 PM Abnormal weight gai n Results for this PANEL SECURITY OPERATIONS ANALYST procedure are i n the results section. documented in this encounter Results Vitamin D (In house) (05/29/2016 3:29 PM SECURITY OPERATIONS ANALYST) athologist Signature Vitamin D 25 Oh 62 20 - 80 PN SOFT ng/mL Comment: Deficiency = <20 Adequate ??= 20-29 Preferred = 30-50 Uncertain safety = 51-80 High = >80 Specimen Anatomical Collection Method Collection Time Receive d Time (Source) Location / / Volume Laterality 05/29/2016 3:29 PM 6 7:40 SECURITY OPERATIONS ANALYST PM SECURITY OPERATIONS ANALYST Narrative PN SOFT - 05/29/2016 9:03 PM SECURITY OPERATIONS ANALYST Performed at [facility], [facility] [id number] CLIA number [id number] .Cortisal Saliva La Mendosa MD LAB_1 Performing Organization Address City/State/ZIP Code Phon e Number PN SOFT [address] [place] [address] BMP - Basic Metabolic Panel (05/29/2016 3:29 PM SECURITY OPERATIONS ANALYST) athologist Signature Creatinine Serum 0.70 0.55 - PN SOFT 1.02 mg/dL Lab Glucose 95 70 - 100 PN SOFT mg/dL Comment: The stated glucose range is for the fast ing state. Non-fasting glucose range is 70-180 mg/d L CO2 24 22 - 31 mmol/L PN SOFT Chloride 105 98 - 109 mmol/L PN SOFT Potassium 3.8 3.5 - 5.2 mmol/L PN SOFT Sodium 139 136 - 145 mmol/L PN SOFT Blood Urea Nitrogen <10 9 - 26 mg/dL PN SOFT Calcium 9.1 8.4 - 10.2 mg/dL PN SOFT Est [...] (Source) Location / / Volume Laterality 05/29/2016 3:29 PM 6 3:29 SECURITY OPERATIONS ANALYST PM SECURITY OPERATIONS ANALYST Narrative PN SOFT - 05/29/2016 4:02 PM SECURITY OPERATIONS ANALYST Performed at [facility], [address] [place] [id number] CLIA number [id number] .Cortisal Saliva La Mendosa MD LAB_1 Performing Organization Address City/[facility]/ZIP Code Phon e Number PN SOFT [address] [place] [address] PTH - Parathyroid Hormone Intact (05/29/2016 3:29 PM SECURITY OPERATIONS ANALYST) athologist Signature PTH 62 10 - 100 PN SOFT pg/mL Specimen Anatomical Collection Method Collection Time Receive d Time (Source) Location / / Volume Laterality 05/29/2016 3:29 PM 6 6:36 SECURITY OPERATIONS ANALYST PM SECURITY OPERATIONS ANALYST Narrative PN SOFT - 05/29/2016 7:37 PM SECURITY OPERATIONS ANALYST Performed at [facility], [address] [place] [address] CLIA number [id number] .Cortisal Saliva La Mendosa MD LAB_1 Performing Organization Address City/[facility] Phon e Number PN SOFT [address] [place] [address] documented in this encounter Visit Diagnoses Diagnosis Abnormal weight gain documented in this encounter Care Teams Blueprint Tracer Relationship Specialty Start Date End Date Kinga Pickett APRN, MILL TURNER PCP - General 03/15/15 07/04/[address] [place] [id number] documented as of this encounter
--- OUTSIDE RECORDS SUMMARY | 2022-03-20 16:14 | XMS_ITS | Encounter Summary ---
:1975 Author Organization [employer] Address [address], [place] [address] Care Team Providers Name Role Phone Needs Pcp, Assignment Primary Care Provider Encounter Details Date Type Department Care Team Description 07/12/2016 Hospital Encounter [facility] Silvino Lynne MD [place] [address] [facility] [address] [place], [place] [address] [address] [place], [place] [phone] ( Work) [phone] Social History Tobacco Use Types Packs/Day Years [...] at Date Recorded Female 05/09/2021 7:19 PM PATIENT FLOW COORDINATOR documented as of this encounter Last Filed Vital Signs Vital Sign Reading Time Taken Comments Blood Pressure - - Pulse - - Temperature - - Respiratory Rate - - Oxygen Saturation - - Inhaled Oxygen Concentration - - Weight 89.8 kg (198 lb) 07/11/2016 1:19 PM PATIENT FLOW COORDINATOR Height 167.6 cm (5' 6) 07/11/2016 1:19 PM PATIENT FLOW COORDINATOR Body Mass Index 31.96 07/11/2016 1:19 PM PATIENT FLOW COORDINATOR documented in this encounter Medications at Time [...] dose is 4000 mg in 24 hours. HYDROcodone-acetamin Take 1 Tab by mouth 10 Tab 0 201607/17/2016 ophen (NORCO) 5-325 every 6 hours as MG tablet needed for Pain. mesalamine (CANASA) Place 1 suppository 30 suppository 11 07/30/2016 1000 MG suppository rectally nightly. mesalamine (LIALDA) 4.8gm daily, 120 tablet 11 10/04/201510/2016 1.2 G enteric coated starting when the tablet prednisone dose is weaned to 20mg. norethindrone-eth Take 1 tablet by 28 tablet 0 07/05/2011 0 07/19/2016 estradiol (AKA mouth daily TAKE NORINYL, ORTHO ACTIVE PILLS DAILY NOVUM) 1-35 MG-MCG THEN DISCARD tablet INACTIVE PILLS AND IMMEDIATELY START NEXT PACK. TAKING CONTINUOUSLY norethindrone-eth Take 1 tablet by 112 tablet 4 11/24/2015 0 11/21/2016 estradiol mouth daily (every (NORINYL,ORTHONOVUM) 24 hours). PATIENT 1-35 MG-MCG tablet TAKES CONTINOUSLY potassium chloride Take 1 Tab by mouth 30 Tab 0 07/13/19 17 07/30/2016 (K-DUR,KLOR-CONM) 20 daily. MEQ tabletIndications: Acute hypokalemia potassium chloride Take 1 Tab by mouth 2 Tab 0 07/11/19 17 07/13/2016 (K-DUR,KLOR-CONM) 20 daily for 2 days. MEQ tabletIndications: Acute hypokalemia topiramate (TOPAMAX) Take 0.5 Tabs by 90 Tab 1 7 07/25/2016 25 MG tablet mouth two times a day. triamterene-hydrochl Take 1 tablet by 90 tablet 4 6 04/25/2017 orothiazide mouth daily (every (MAXZIDE-25) 37.5-25 24 hours). MG tabletIndications: Essential hypertension (HRC) documented as of this encounter Procedure Notes Donovan Lynne MD - 07/12/2016 5:29 PM CST NAME: IGGY DUARTE MR#: [id number] CSN: [id number] AUTHENTICATING CLINICIAN: Donovan Lynne MD CONFIRM #: [id number] LOC: 1 OPERATIVE REPORT DATE OF OPERATION: 07/12/2016 : 1975 SURGEON: Donovan Lynne MD PREOPERATIVE DIAGNOSIS: Biliary colic. POSTOPERATIVE DIAGNOSIS: Biliary colic. PROCEDURE PERFORMED: Laparoscopic cholecystectomy. SAUSAGE STUFFER: LUPILLO Hopper. There was no surgery resident available for this case. ANESTHESIA: General. INDICATION: The patient is a 41-year-old who presented with increasingly frequent and severe right upper quadrant pain. She had imaging studies that showed cholelithiasis. We recommended she undergo laparoscopic, possible open cholecystectomy. The procedure, risks, and benefits, including the possibility of bleeding, infection, injury to the bile duct requiring additional surgery, nonresolution of her pain, anesthetic complications, and activity limitations discussed with the patient. Appeared to understand. All questions were answered. Informed consent was obtained prior to the procedure. She also carries a diagnosis of colitis, for which she is on current medications for this. PROCEDURE: Patient was brought to operating room, placed in supine position upon the operating table. After general anesthesia was satisfactorily induced, the abdomen was prepped and draped in standard sterile fashion. An infraumbilical incision was made with a scalpel, extended down through the subcutaneous tissues down to the muscular fascia. 0 Vicryl sutures were placed on each side of the midline. The midline fascia was incised. The peritoneal cavity entered under direct visualization. The Tina ports placed inthe abdomen. Abdomen insufflated to a pressure of approximately 15. The patient was placed in reverse Trendelenburg position, rotated to the left. The upper midline port and 2 lateral ports were placedunder direct visualization. Each port site had been injected with Marcaine prior to port placement. With the gallbladder retracted in the right upper quadrant, the peritoneum overlying the neck of thegallbladder and cystic duct junction was incised. Cystic duct was able to be circumferentially dissected free from the surrounding tissues. Cystic artery lay just adjacent to this and, likewise, was cir cumferentially dissected free. She had a very large right hepatic artery that was in very close proximity but I was able to easily stay away from this very large artery during the dissection. The peritoneum medially and laterally along the gallbladder was fully incised for appropriate visualization ofthe critical view. Then, the cystic duct was divided by placing 1 clip on the neck of the gallbladder and cystic duct junction, 2 on the cystic duct just below this. The duct was then divided. Similarly, cystic artery was divided. The gallbladder was then dissected from the gallbladder fossa using electrocautery, brought through the umbilical port site without difficulty using the Endo pouch. The abdomen was carefully inspected. There was no bleeding or bile leakage seen. She did, however, have a fair amount of edema that was noticed even before our dissection in the region of the hepatic flexure of the colon. We could see the duodenal sweep and this appeared to be normal, as did the head of the pancreas. We did not further investigate the colon at this point, given her previous diagnosis of colitis. At this point, the 5 mm ports were removed under direct visualization. There was no bleeding noted, as was the upper midline port. The periumbilical port was removed. This fascial defect was closed with interrupted 0 Vicryl sutures. Skin was closed at all 4 port sites with 4-0 Monocryl subcuticular stitch. Benzoin, Steri-Strips, dry sterile dressing, and Tegaderm were applied. This terminated the procedure. The patient tolerated the procedure well. No complications. She was taken from the operating room to Recovery in satisfactory condition. BRET:EAN C: CONFIRM #: [id number] ENT FLOW COORDINATOR Raquel Mariee PA-C - 07/12/2016 3:26 PM CST BRIEF OPERATIVE NOTE Date of procedure: 07/12/2016 Pre op diagnosis: Biliary Colic in setting of Cholelithiasis Post op diagnosis: same as above Procedure: Laparoscopic Cholecystectomy Surgeon: Dr. Donovan Lynne Assistants: Raquel Mariee PA-C. A qualified resident was not available. An senior administrative assistant was needed to help with tissue retraction and to facilitate the operative exposure. Findings: See Dr. Lynne's operative report for complete details. Estimated blood loss: 3 ml Fluids: 1,150 ml LR-Crystalloid Specimen: Gallbladder - to pathology, routine. Complications: None Disposition: Discharge home Post op plan: Process through recovery; discharge to home when patients meets criteria. ENT FLOW COORDINATOR documented in this encounter OR Notes H&P - Donovan Lynne MD - 07/12/2016 1:08 PM CST Surgery Update for Preop History and Physical For 07/12/2016 scheduled procedure Reviewed the medical History and Physical/Medications. Attached H&P Note Update to H&P includes: Patient and/or family denies any health changes since the H&P This patient has been evaluated by me today and has been found to be a suitable candidate for surgery. Donovan Lynne MD 07/12/2016 ENT FLOW COORDINATOR documented in this encounter Plan of Treatment Upcoming Encounters Date Type Specialty Care Team Description 05/05/2022 Appointment Chemo Therapy/Infusion Services 09/15/2022 Telemedicine Gastroenterology Eusebio Haines MD [address] [place] [address] (Wo rk) documented as of this encounter Procedures Procedure Name Priority Date/Time Associated Diagnosis Comme nts POCT URINE STAT 07/12/2016 1:50 PM Results f or this PATIENT FLOW COORDINATOR procedure are i n the results section. POTASSIUM STAT 07/12/2016 1:15 PM Results f or this PATIENT FLOW COORDINATOR procedure are i n the results section. SURGICAL PATH, PARK Routine 07/12/2016 6:00 AM Re sults for this NICOLLET PATIENT FLOW COORDINATOR procedure are i n the results section. documented in this encounter Results POCT urine : (07/12/2016 1:50 PM PATIENT FLOW COORDINATOR) [facility] Method Time Signature Urine Negative PN POCT Test - POC Control Line Yes PN POCT Present, Clear Background - Internal control Cartridge Lot# [id number] PN POCT Specimen (Source) Anatomical Collection Method Collection Time Re ceived Time Location / / Volume Laterality Urine specimen 07/12/2016 1:50 PM (specimen) PATIENT FLOW COORDINATOR Donovan Lynne MD PN POINT OF CARE TESTS Performing Organization Address City/[facility] Phon e Number POCT PN POCT (ABNORMAL) POTASSIUM (07/12/2016 1:15 PM PATIENT FLOW COORDINATOR) athologist Signature Potassium 3.2 (L) 3.5 - 5.2 PN SOFT mmol/L Specimen Anatomical Collection Method Collection Time Receive d Time (Source) Location / / Volume Laterality 07/12/2016 1:15 PM 7 1:47 PATIENT FLOW COORDINATOR PM PATIENT FLOW COORDINATOR Narrative PN SOFT - 07/12/2016 2:20 PM PATIENT FLOW [place]ORDIN[place] [address] CLIA number [id number] Donovan Lynne MD LAB_1 Performing Organization Address City/[facility] Phon e Number PN SOFT [address] [place] [address] Pathology Report (07/12/2016 6:00 AM PATIENT FLOW COORDINATOR) [facility] Method Time Signature Path: FINAL SURGICAL PATHOLOGY REPORT PN SOFT Pathology #: [id number] ? Date Obtained: 07/12/2016 ?Date Received: 07/12/2016 DIAGNOSIS: Gallbladder, cholecystectomy: 1. ??Cholelithiasis. 2. ??Minimal chronic cholecystitis. ?Sergio MONTERO D ? (electronic signatur e) ? 07/13/2016 ??11:2 5 CLINICAL NOTES: Biliary colic ORGAN/TISSUE SITE: Gallbladder GROSS DESCRIPTION: The specimen is received in formalin and identified as gall bladder and consists of a resected gallbladder measuring 11 x 3.5 x 3.5 cm. ??The serosal surface is smooth and glistening. ??The specimen is opened in a lengthwise fashion revealing innumerable yellow mulberry st ones ranging from 0.1 up to approximately 0.9 cm in diameter. ?? The mucosa is trabeculated with possible cholesterolosis. ??The maximu m wall thickness is 0.2-0.3 cm. ??There are no masses. Representat gregory sections are submitted in 1 cassette, 412. ? SHB MICROSCOPIC DESCRIPTION: Microscopic examination performed. Performed at [facility], [facility] [place] [address] Specimen Anatomical Location Collection Method Collection Time Received Time (Source) / Laterality / Volume TISSUE SPECIMEN 07/12/2016 6:00 7 6:00 FROM GALLBLADDER / AM PATIENT FLOW COORDINATOR AM PATIENT FLOW COORDINATOR Unknown Donovan Lynne MD LAB_1 Performing Organization Address City/State/ZIP Code Phon e Number PN SOFT [address] [place], [place] [id number] documented in this encounter Visit Diagnoses Not on filedocumented in this encounter Active and Recently Administered Medications Care Teams Artisan Plasterer Relationship Specialty Start Date End Date Needs Pcp, Assignment PCP - General 07/12/16 07/12/16 [place] [address] documented as of this encounter
--- OUTSIDE RECORDS SUMMARY | 2022-03-20 16:15 | XMS_ITS | Encounter Summary ---
:1975 Author Organization [employer] Address [address] [address] Care Team Providers Name Role Phone Kinga Pickett APRN, CNP Primary Care Provider [phone] Reason for Visit Reason Comments Refill Encounter Details Date Type Department Care Team Description 06/11/2015 Refill [facility] Kinga Morrow APRN, Refill [address] [place] [address] [address] [facility] [phone] 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 [employer] Matilde Vera - 06/11/2015 1:17 PM CST Last filled on 04-28-15 for #30 per the pharmacy [employer] Matilde Vera - 06/11/2015 1:16 PM CST Has an appt tomorrow morning 06-12-15 [employer] documented in this encounter Plan of Treatment Upcoming Encounters Date Type Specialty Care Team Description 05/05/2022 Appointment Chemo Therapy/Infusion Services 09/15/2022 Telemedicine Gastroenterology Eusebio Haines MD [address] [place] [address] (Wo rk) documented as of this encounter Visit Diagnoses Diagnosis JANNET (generalized anxiety disorder) (HRC) - Primary Generalized anxiety disorder Situational stress (HRC) Other psychological or physical stress, not elsewhere classified documented in this encounter Care Teams Automotive Finance Manager Relationship Specialty Start Date End Date Kinga Pickett APRN, PUMP OPERATOR [employer] PCP - General 03/15/15 07/04/16 [address] [place] [address] documented as of this encounter
--- OUTSIDE RECORDS SUMMARY | 2022-03-20 16:15 | XMS_ITS | Encounter Summary ---
:1975 Author Organization [employer] Address [address] [place] [address] Care Team Providers Name Role Phone Kinga Pickett APRN, CNP Primary Care Provider [phone] Encounter Details Date Type Department Care Team Description 02/05/2016 Lab Visit [facility] Screening for diabetes ryder tus; [address] Encounter for screening for lipoid disorders; [place], [place] [address] Screening for deficiency ane juliana; [phone] Screening for t hyroid disorder Social History Tobacco Use Types Packs/Day Years Used Date Smoking Tobacco: Never Assessed Sex Assigned at Date Recorded Female 05/09/2021 7:19 PM DETACKER documented as of this encounter Plan of Treatment Upcoming Encounters Date Type Specialty Care Team Description 05/05/2022 Appointment Chemo Therapy/Infusion Services 09/15/2022 Telemedicine Gastroenterology Eusebio Haines MD [address] [place], [place] [address] (Wo rk) documented as of this encounter Procedures Procedure Name Priority Date/Time Associated Diagnosis Comme nts TSH AND FREE T4 Routine 02/05/2016 10:39 AM Screening for Resu lts for this (FRT4 IF TSH CDT thyroid disorder procedure a re in ABNORM) the results section. LIPID PANEL AND Routine 02/05/2016 10:39 AM Encounter for Resu lts for this DIRECT LDL(IF CDT screening for lipoid proced ure are in NEEDED) disorders the results section. BASIC METABOLIC Routine 02/05/2016 10:39 AM Resul ts for this PANEL CDT procedure are i n the results section. HEMOGLOBIN, BLOOD Routine 02/05/2016 10:39 AM Screening for Re sults for this CDT deficiency anemia procedure are in the results section. documented in this encounter Results Basic Metabolic Panel (02/05/2016 10:39 AM CDT) athologist Signature Creatinine 0.70 0.55 - HP CONVERSION Serum 1.02 mg/dL Lab Glucose 82 60 - 100 HP CONVERSION mg/dL CO2 24 22 - 31 HP CONVERSION mmol/L Chloride 107 98 - 107 HP CONVERSION mmol/L Potassium 3.8 3.5 - 5.2 HP CONVERSION mmol/L Sodium 140 136 - 145 HP CONVERSION mmol/L Blood Urea <10 9 - 26 HP CONVERSION Nitrogen mg/dL Calcium 9.3 8.4 - 10.2 HP CONVERSION mg/dL Est GFR >60 >60 HP CONVERSION Am mL/min/1.7 3m2 Est GFR Non-Afr >60 >60 HP CONVERSION Am mL/min/1.7 3m2 Comment: Normal>60, moderate decrease 30 - 59, se nay decrease 15 - 29, renal failure <15 mL/min/1.73 m2 NOTE: ??Choose the eGFR result above kenia ropriate for the race of the patient. Specimen Anatomical Collection Method Collection Time Receive d Time (Source) Location / / Volume Laterality 02/05/2016 10:39 02/05/2016 3:22 AM CDT PM CDT Narrative HP CONVERSION - 02/05/2016 3:54 PM CDT Performed at [facility], [address] [place] [address] CLIA number [id number] Sheeba Castillo PUDDLER HELPER, NURSING INFORMATION SYSTEMS COORDINATOR LAB_1 Performing Organization Address City/State/ZIP Code Phon e Number HP CONVERSION TSH And Free T4 (FRT4 If TSH Abnorm) (02/05/2016 10:39 AM CDT) athologist Signature Thyroid 1.96 0.20 - HP CONVERSION Stimulating 4.50 Hormone uIU/mL Specimen Anatomical Collection Method Collection Time Receive d Time (Source) Location / / Volume Laterality 02/05/2016 10:39 02/05/2016 4:00 AM CDT PM CDT Narrative HP CONVERSION - 02/05/2016 4:50 PM CDT Performed at [facility], [address] [place] [address] CLIA number [id number] Sheeba Castillo APRN, CNP LAB_1 Performing Organization Address [facility] Phon e Number HP CONVERSION Hemoglobin, Blood (02/05/2016 10:39 AM CDT) athologist Signature Hemoglobin 14.6 11.8 - 15.5 HP CONVERSION g/dL Specimen Anatomical Collection Method Collection Time Receive d Time (Source) Location / / Volume Laterality 02/05/2016 10:39 02/05/2016 AM CDT 10:39 AM CDT Narrative HP CONVERSION - 02/05/2016 10:45 AM CDT Performed at [facility], [address] [place] [address] CLIA number [id number] Sheeba Castillo APRN, CNP LAB_1 Performing Organization Address City/[facility] Phon e Number HP CONVERSION Lipid Panel and Direct LDL(If Needed) (02/05/2016 10:39 AM CDT) [facility] gist Method Time Signature Cholesterol 177 0 - 199 HP CONVERSION mg/dL Triglycerides 89 4 - 149 HP CONVERSION mg/dL HDL Cholesterol 67 >39 mg/dL HP CONVERSION Cholesterol/HDL 2.6 HP CONVERSION Ratio Screen LDL Calculated 92 19 - 130 HP CONVERSION mg/dL Length Of Fast 11.5 HP CONVERSION Specimen Anatomical Collection Method Collection Time Receive d Time (Source) Location / / Volume Laterality 02/05/2016 10:39 02/05/2016 3:22 AM CDT PM CDT Narrative HP CONVERSION - 02/05/2016 3:54 PM CDT Performed at [facility], [address] [place] [address] CLIA number [id number] Sheeba Castillo APRN, CNP LAB_1 Performing Organization Address [facility] Phon e Number HP CONVERSION documented in this encounter Visit Diagnoses Diagnosis Screening for diabetes mellitus Encounter for screening for lipoid disor ders Screening for lipoid disorders Screening for deficiency anemia Screening for other and unspecified defi ciency anemia Screening for thyroid disorder documented in this encounter Care Teams Publications Inspector Relationship Specialty Start Date End Date Kinga Pickett, PUDDLER HELPER, NURSING INFORMATION SYSTEMS COORDINATOR PCP - General 03/15/15 07/04/16 [address] [place] [address] documented as of this encounter
--- OUTSIDE RECORDS SUMMARY | 2022-03-20 16:15 | XMS_ITS | Encounter Summary ---
:1975 Author Organization [employer] Address [address], [place] [address] Care Team Providers Name Role Phone Kinga Pickett APRN, CNP Primary Care Provider [phone] Reason for Visit Reason Comments MEDICATION CHECK Encounter Details Date Type Department Care Team Description 06/12/2015 Office Visit [facility] Sheeba Castillo, JANNET (generalized anxiety disorder) (Primary Dx); Medicine [facility] GRANT Situational stress [address] [address] [address] [place] [address] [place] [phone] (Wo rk) Social History Tobacco Use Types Packs/Day Years Used Date Smoking Tobacco: Never Assessed Sex Assigned at Date Recorded Female 05/09/2021 7:19 PM CIGAR PACKER AND PICKER documented as of this encounter Last Filed Vital Signs Vital Sign Reading Time Taken Comments Blood Pressure 132/84 06/12/2015 10:45 AM CIGAR PACKER AND PICKER Pulse 96 06/12/2015 10:45 AM CIGAR PACKER AND PICKER Temperature - - Respiratory Rate - - Oxygen Saturation - - Inhaled Oxygen Concentration - - Weight 74.1 kg (163 lb 6.4 oz) 06/12/2015 10:45 AM CIGAR PACKER AND PICKER Height 168 cm (5' 6.13) 06/12/2015 10:45 AM CIGAR PACKER AND PICKER Body Mass Index 26.27 06/12/2015 10:45 AM CIGAR PACKER AND PICKER documented in this encounter Patient Instructions Patient InstructionsSheeba Castillo, SIERRA GRANT - 06/12/2015 11:06 AM CIGAR PACKER AND PICKER Plan - Start Citalopram, take 1/2 tab x 4 days then 1 tab daily. - Start Trazodone 50mg at bedtime, 1-2 tabs. - Lorazepam, #15. - Counselor again - Recheck in 4-6 weeks. R PACKER AND PICKER documented in this encounter Progress Notes Sheeba Castillo APRN, CNP - 06/12/2015 11:20 AM CST Iggy Duarte [id number] 1975 SUBJECTIVE: IGGY DUARTE is a 40 y.o. female who presents to the clinic for medication refill and discussion of anxiety. The patient recently finalized a divorce and has been struggling with anxiety since her told her that he was leaving the marriage in December. She states that things had not been very good between the two of them for a long time and since , she has been a lot happier. However,she reports constant worry, ruminating thoughts, diminished appetite, difficulty sleeping, and feeling very nervous nearly all the time. Her friends have told her that she seems very restless. She finds that she becomes emotional very easily. She has had a lot of stress over the past several months; trying to find a new place to live and sell their horses and property. She is now dating someone else and feels in some ways better than she has in years. The patient was initially started on Zoloft 50 mg in December, but discontinued after several weeks because she did not like the side effects. She has been using lorazepam since then on almost a daily basis. Sometimes she will take it in the morning before a stressful day and it will keep her calm. Other times, she uses it at night to help her sleep. She feels somewhat numb on the medication and friends have commented that she seems like a different person when she takes it. The patient denies feelings of depression or hopelessness. Denies suicidal ideation. She has no other concerns today. PAST MEDICAL AND SURGICAL HISTORY REVIEWED IN [facility] FAMILY AND SOCIAL HISTORY REVIEWED IN [facility] MEDICATIONS: Outpatient Prescriptions Prior to Visit Medication Sig ??? Calcium Carbonate 1,000 mg Tab Take by mouth. ??? dicyclomine (BENTYL) 20 mg tablet Take 1 tablet by mouth 4 times daily as needed. ??? LORazepam (ATIVAN) 0.5 mg tablet Take 1 tablet by mouth every 6 hours as needed for Anxiety. ??? MULTI-VITAMIN ORAL Take 1 tablet by mouth daily (every 24 hours). ??? norethindrone-ethinyl estradiol (NECON , ,) 1-35 mg-mcg per tablet Take 1 tablet by mouth daily (every 24 hours). Patient takes continously ??? [DISCONTINUED] sertraline (ZOLOFT) 50 mg tablet Take 1 tablet by mouth daily (every 24 hours). ??? triamterene-hydrochlorothiazide (MAXZIDE-25) 37.5-25 mg per tablet Take 1 tablet by mouth daily (every 24 hours). No facility-administered medications prior to visit. ALLERGIES: Review of patient's allergies indicates no known allergies. ROS as described above. Other pertinent positives include: As above OBJECTIVE BP 132/84 mmHg Pulse 96 Ht 5' 6.13 (1.68 m) Wt 163 lb 6.4 oz (74.118 kg) BMI 26.26 kg/m2 GENERAL: This is a well-developed, well-nourished female in no acute distress. HEENT: Head AT/NC. PSYCH: Well-oriented. Appropriate mood and affect. Appeared tearful at times. Speech was fast, but not pressured. No evidence of delusions or suicidality. NEURO: Speech and gait are normal. PHQ-9: Score of 4 JANNET-7: Score of 6 ASSESSMENT/PLAN: JANNET (generalized anxiety disorder) ([facility]) - I explained that treating the underlying cause for generalized anxiety is vital for successful treatment. Advised against daily use of lorazepam, as it can lead to dependence and addiction. Recommended that she use it only for acute panic or severe anxiety. I refilled #15 tabs and expect this to last at least 1 month. LORazepam (ATIVAN) 0.5 mg tablet; Take 1 tablet by mouth every 6 hours as needed for Anxiety #15 no refills. - For help with sleep disturbance, initiate traZODone (DESYREL) 50 mg tablet; Take 1 tablet by mouthnightly. - Initiate citalopram (CELEXA) 20 mg tablet; Take 1 tablet by mouth daily (every 24 hours). - Discussed black box warning: Including worsening of depression or thoughts of suicide which may occur as a result of the SSRI and often occur at initiation or with a change in dose, but can occur at any time. Both of these indicate a need to be seen emergently. In addition, discussed with patient common reactions including nausea, headache, insomnia, anxiety, diarrhea, dry mouth, sexual side effects, and advised to return to clinic if notes these or other symptoms. Patient wishes to proceed. Prescription provided. - Advised patient to restart counseling. - Recheck in 4-6 weeks, sooner if symptoms worsen. Sheeba Castillo APRN, CNP [facility] NB: A voice recognition dictation system was used for this note. Please excuse any typographical errors. R PACKER AND PICKER documented in this encounter Plan of Treatment Upcoming Encounters Date Type Specialty Care Team Description 05/05/2022 Appointment Chemo Therapy/Infusion Services 09/15/2022 Telemedicine Gastroenterology Eusebio Haines MD [address] [place], [place] [phone] (Wo rk) documented as of this encounter Visit Diagnoses Diagnosis JANNET (generalized anxiety disorder) ([facility]) - Primary Generalized anxiety disorder Situational stress ([facility]) Other psychological or physical stress, not elsewhere classified documented in this encounter Care Teams Executive Assistant To General Counsel Relationship Specialty Start Date End Date Kinga Pickett APRN, CNP PCP - General 03/15/15 07/04/16 [address] [place], [place] [phone] documented as of this encounter
--- OUTSIDE RECORDS SUMMARY | 2022-03-20 16:15 | XMS_ITS | Encounter Summary ---
:1975 Author Organization [employer] Address [address], [place] [address] Care Team Providers Name Role Phone Kinga Pickett APRN, CNP Primary Care Provider [phone] Reason for Visit Reason Comments Refill Encounter Details Date Type Department Care Team Description 12/15/2015 Telephone [facility] Sheeba Roca APRN, Refill [address] [place] [address] [address] [phone] [place], [place] [address] (Wo rk) Social History Tobacco Use Types Packs/Day Years Used Date Smoking Tobacco: Never Assessed Sex Assigned at Date Recorded Female 05/09/2021 7:19 PM RECEIPT AND REPORT CLERK documented as of this encounter Nursing Notes Adri Sanchez LPN - 12/15/2015 12:55 PM CDT Message to pt with Clay note below Sheeba Allison APRN, CNP - 12/15/2015 12:45 PM CDT Call pt. Per the current Endocrinology Guidelines, Use of approved weight-loss medications is endorsed for people with a body mass index (BMI) of 30 kg/m2. Her BMI is only 27. Since we can't use phentermine at this point, a shop lead consult and continued exercise would be my recommendation. IPT AND REPORT CLERK Racheal Maharaj LPN - 12/15/2015 12:12 PM CDT Refill request received from [facility] for Phentermine 37.5 tablets. Per the note on the refill request, Since stopping Prednisone at last visit, I gained a lot of weight. I did lose a lot of weight the last year and kept it off with diet and exercise. Since stopping Prednisone, I can not lose the weight I gained with diet and exercise and would like to try Phentermine for 3 mths. documented in this encounter Plan of Treatment Upcoming Encounters Date Type Specialty Care Team Description 05/05/2022 Appointment Chemo Therapy/Infusion Services 09/15/2022 Telemedicine Gastroenterology Eusebio Haines MD [address] [place], [place] [phone] (Wo rk) documented as of this encounter Visit Diagnoses Not on filedocumented in this encounter Care Teams Hims Clerk Relationship Specialty Start Date End Date Kinga Pickett, STRAIGHTENING MACHINE OPERATOR, TECHNICAL PROPOSAL WRITER PCP - General 03/15/15 07/04/16 [address] [place] [address] documented as of this encounter
--- OUTSIDE RECORDS SUMMARY | 2022-03-20 16:15 | XMS_ITS | Encounter Summary ---
:1975 Author Organization [employer] Address [address] [place] [address] Care Team Providers Name Role Phone Kinga Pickett APRN, CNP Primary Care Provider [phone] Encounter Details Date Type Department Care Team Description 09/01/2015 Lab Visit [facility] Chronic diarrhea; [address] [facility] [place] [address] Social History Tobacco Use Types Packs/Day Years Used Date Smoking Tobacco: Never Assessed Sex Assigned at Date Recorded Female 05/09/2021 7:19 PM PARTY DIRECTOR documented as of this encounter Plan of Treatment Upcoming Encounters Date Type Specialty Care Team Description 05/05/2022 Appointment Chemo Therapy/Infusion Services 09/15/2022 Telemedicine Gastroenterology Eusebio Haines MD [address] [place] [address] (Wo rk) documented as of this encounter Procedures Procedure Name Priority Date/Time Associated Comments Diagnosis COMPLETE BLOOD Routine 09/01/2015 1:52 PM Chronic diarr hea Results for this COUNT-W/DIFF PARTY DIRECTOR Hematochezia procedure are i n the results section. DIFFERENTIAL Routine 09/01/2015 1:52 PM Results f or this PARTY DIRECTOR procedure are i n the results section. C-REACTIVE PROTEIN Routine 09/01/2015 1:52 PM Chronic di arrhea Results for this PARTY DIRECTOR Hematochezia procedure are i n the results section. documented in this encounter Results Differential (09/01/2015 1:52 PM PARTY DIRECTOR) Analysis Performed At Patho logist Time Signature Absolute 6.3 1.8 - 8.0 HP CONVERSION Neutrophils k/cmm Absolute 3.6 1.1 - 4.0 HP CONVERSION Lymphocytes k/cmm Absolute 0.3 0.2 - 0.8 HP CONVERSION Monocytes k/cmm Absolute 0.0 0.0 - 0.5 HP CONVERSION Eosinophils k/cmm Absolute 0.1 0.0 - 0.2 HP CONVERSION Basophils k/cmm Immature 0.3 0.0 - 0.5 HP CONVERSION Granulocytes % Specimen Anatomical Collection Method Collection Time Receive d Time (Source) Location / / Volume Laterality 09/01/2015 1:52 PM 6 1:52 PARTY DIRECTOR PM PARTY DIRECTOR Narrative HP CONVERSION - 09/01/2015 1:57 PM PARTY DIRECTOR Performed at [facility], [address] [place] [address] CLIA number [id number] Eileen Bernabe APRN, CNP LAB_1 Performing Organization Address City/[facility] Phon e Number HP CONVERSION (ABNORMAL) C-Reactive Protein (09/01/2015 1:52 PM PARTY DIRECTOR) athologist [facility] CRP 1.1 (H) 0.0 - 0.5 HP CONVERSION mg/dL Specimen Anatomical Collection Method Collection Time Receive d Time (Source) Location / / Volume Laterality 09/01/2015 1:52 PM 6 1:52 PARTY DIRECTOR PM PARTY DIRECTOR Narrative HP CONVERSION - 09/01/2015 5:37 PM PARTY DIRECTOR Performed at [facility], [facility] [address] [place] [address] CLIA number [id number] Eileen Bernabe APRN, INVESTOR RELATIONS MANAGER LAB_1 Performing Organization Address City/[facility] Phon e Number HP CONVERSION Complete Blood Count W/Diff (09/01/2015 1:52 PM PARTY DIRECTOR) athologist Signature White Blood Cell 10.3 3.8 - 11.0 HP CONVERSIO N Count k/cmm Red Blood Cell 4.39 3.70 - HP CONVERSION Count 5.20 m/cmm Hemoglobin 13.8 11.8 - HP CONVERSION 15.5 g/dL Hematocrit 40.7 35.0 - HP CONVERSION 46.0 % Mean Corpuscular 92.7 80.0 - HP CONVERSION Volume 100.0 fL RDW 12.2 11.0 - HP CONVERSION 15.0 % Platelet Count 308 140 - 450 HP CONVERSION k/cmm Specimen Anatomical Collection Method Collection Time Receive d Time (Source) Location / / Volume Laterality 09/01/2015 1:52 PM 6 1:52 PARTY DIRECTOR PM PARTY DIRECTOR Narrative HP CONVERSION - 09/01/2015 1:57 PM PARTY DIRECTOR Performed at [facility], [address] [place] [address] CLIA number [id number] Eileen Bernabe APRN, CNP LAB_1 Performing Organization Address City/State/ZIP Code Phon e Number HP CONVERSION documented in this encounter Visit Diagnoses Diagnosis Chronic diarrhea Diarrhea Hematochezia Blood in stool documented in this encounter Care Teams Finished Cigar Maker Relationship Specialty Start Date End Date Kinga Pickett APRN, SIERRA PCP - General 03/15/15 07/04/16 [address] [place] [address] documented as of this encounter
--- OUTSIDE RECORDS SUMMARY | 2022-03-20 16:15 | XMS_ITS | Encounter Summary ---
:1975 Author Organization [employer] Address [address] [place] [address] Care Team Providers Name Role Phone Kinga Pickett APRN, CNP Primary Care Provider [phone] Reason for Visit Reason Comments BLOOD PRESSURE CHECK Encounter Details Date Type Department Care Team Description 12/22/2015 Nursing Visit [facility] Nurse, [facility] [address] [place], [place] [address] Social History Tobacco Use Types Packs/Day Years Used Date Smoking Tobacco: Never Assessed Sex Assigned at Date Recorded Female 05/09/2021 7:19 PM ENGINEERING LEADER documented as of this encounter Last Filed Vital Signs Vital Sign Reading Time Taken Comments Blood Pressure 127/81 12/22/2015 1:12 PM CDT Pulse 71 12/22/2015 1:12 PM CDT Temperature - - Respiratory Rate - - Oxygen Saturation - - Inhaled Oxygen Concentration - - Weight - - Height - - Body Mass Index - - documented in this encounter Plan of Treatment Upcoming Encounters Date Type Specialty Care Team Description 05/05/2022 Appointment Chemo Therapy/Infusion Services 09/15/2022 Telemedicine Gastroenterology Eusebio Haines MD [address] [place], [place] [address] (Wo rk) documented as of this encounter Visit Diagnoses Not on filedocumented in this encounter Care Teams Medtronics Technician Relationship Specialty Start Date End Date Kinga Pickett APRN, CNP PCP - General 03/15/15 07/04/16 [address] [place] [address] documented as of this encounter
--- OUTSIDE RECORDS SUMMARY | 2022-03-20 16:15 | XMS_ITS | Encounter Summary ---
:1975 Author Organization [employer] Address [address] [place] [address] Care Team Providers Name Role Phone Kinga Pickett APRN, CNP Primary Care Provider [phone] Encounter Details Date Type Department Care Team Description 03/31/2016 Lab Visit [facility] Abnormal weight gain [address] [place], [place] [address] Social History Tobacco Use Types [...] Date Recorded Female 05/09/2021 7:19 PM CARE PROVIDER documented as of this encounter Plan of Treatment Upcoming Encounters Date Type Specialty Care Team Description 05/05/2022 Appointment Chemo Therapy/Infusion Services 09/15/2022 Telemedicine Gastroenterology Eusebio Haines MD [address] [place], [place] [address] (Wo rk) documented as of this encounter Procedures Procedure Name Priority Date/Time Associated Comments Diagnosis DEHYDROEPIANDROSTERONE Routine 03/31/2016 4:38 Abnormal weight Results for SULFATE PEDS PM CDT gain this procedure are in the results section. ANDROSTENEDIONE Routine 03/31/2016 4:38 Abnormal weight Result s for PM CDT gain this procedure are in the results section. TESTOSTERONE FREE AND TOTAL, Routine 03/31/2016 4:38 Abnormal weight Results for FEMALE OR CHILDREN PM CDT gain this proc edure are in the results section. HGB A1C Routine 03/31/2016 4:38 Abnormal weight Results f or PM CDT gain this procedure are in the results section. GLUCOSE - FASTING > 8 HRS Routine 03/31/2016 4:38 Abnormal anatoliy ght Results for FASTING PM CDT gain this procedure are in the results section. documented in this encounter Results (ABNORMAL) Testosterone free total females and children (03/31/2016 4:38 PM CDT) P athologist Signature Testosterone 29 9 - 55 PN SOFT Female or ng/dL Children Comment: Total Testosterone, Females 18 years and older Premenopausal ??9-55 ng/dL Postmenopausal 5-32 ng/dL REFERENCE INTERVAL: Testosterone, LC-MS/ MS Access complete set of age- and/or gende r-specific reference intervals for this test in the [facility] Test Directory ([facility]). Test developed and characteristics deter mined by [facility]. See Compliance Statement B : [facility]/CS Testosterone Free Female and Child 1.2 (L) 1.3 - 9.2 pg/mL PN SOFT Comment: To convert to pmol/L, multiply pg/mL by 3.47 The concentration of Free Testosterone i s derived from a mathematical expression based on the con stant for the binding of testosterone to sex hormone b inding globulin. Testosterone, Free LC-MS/MS Reference In terval for Females 18 years and older Postmenopausal: 0.6 - 3.8 pg/mL REFERENCE INTERVAL: Testosterone, Free L C-MS/MS Access complete set of age- and/or gende r-specific reference intervals for this test in the [facility] Test Directory ([facility]). Test developed and characteristics deter mined by [facility]. See Compliance Statement B : [facility]/CS Performed by [facility], [address] [place] [address] www.[facility], Darrell Dee MD - Lab. Director Sex Hormone Binding Globulin 213 (H) 30 - 135 nmol/L PN SOFT Comment: REFERENCE INTERVAL: Sex Hormone Binding Globulin Access complete set of age- and/or gende r-specific reference intervals for this test in the [facility] Test Directory ([facility]). Specimen Anatomical Collection Method Collection Time Receive d Time (Source) Location / / Volume Laterality 03/31/2016 4:38 PM 6 6:51 CDT PM CDT Narrative PN SOFT - 04/04/2016 2:54 PM CDT Performed at [facility] [address] [place] [address] CLIA number [id number] Lavon Song MD LAB_1 Performing Organization Address [facility] Phon e Number PN SOFT [address] [place] [address] Hemoglobin A1C [A1C] (03/31/2016 4:38 PM CDT) athologist Signature HGB A1C 5.1 4.0 - 5.6 % PN SOFT Specimen Anatomical Collection Method Collection Time Receive d Time (Source) Location / / Volume Laterality 03/31/2016 4:38 PM 6 6:44 CDT PM CDT Narrative PN SOFT - 03/31/2016 9:57 PM CDT Performed at [address] [address] CLIA number [id number] Lavon Song MD LAB_1 Performing Organization Address [facility] Phon e Number PN SOFT [address] [place] [address] Glucose (GLUC) (03/31/2016 4:38 PM CDT) athologist Signature Lab Glucose 92 60 - 100 PN SOFT mg/dL Specimen Anatomical Collection Method Collection Time Receive d Time (Source) Location / / Volume Laterality 03/31/2016 4:38 PM 6 7:18 CDT PM CDT Narrative PN SOFT - 03/31/2016 7:33 PM CDT Performed at [address], [place] [address] CLIA number [id number] Lavon Song MD LAB_1 Performing Organization Address [facility]/ZIP Code Phon e Number PN SOFT [address] [place] [address] Dehydroepiandrosterone Sulfate [DHEAS] (03/31/2016 4:38 PM CDT) Component Value Ref Test Analysis Performed At [facility] gist Range Method Time Signature Dehydroepiandrosterone 152 45 - 270 PN SOFT Sulfate ug/dL Comment: REFERENCE INTERVAL: DHEAS Access complete set of age- and/or gende r-specific reference intervals for this test in the [facility] Test Directory ([facility]). Performed by [facility], [facility] [address] www.[facility], Darrell Dee MD - Lab. Director Specimen Anatomical Collection Method Collection Time Receive d Time (Source) Location / / Volume Laterality 03/31/2016 4:38 PM 6 6:17 CDT PM CDT Narrative PN SOFT - 04/02/2016 9:21 PM CDT Performed at [facility] [address] [place] [address] CLIA number [id number] Lavon Song MD LAB_1 Performing Organization Address City/[facility] Phon e Number PN SOFT [address] [place] [address] [phone] Androstenedione [ANDROST] (03/31/2016 4:38 PM CDT) P athologist Signature Androstenedione 0.501 0.260 - PN SOFT 2.140 ng/mL Comment: INTERPRETIVE INFORMATION: Androstenedion e, Females 18 years and older Post-menopausal: 0.13-0.82 ng/mL REFERENCE INTERVAL: Androstenedione by T MS Access complete set of age- and/or gende r-specific reference intervals for this test in the [facility] Test Directory ([facility]). Test developed and characteristics deter mined by [facility]. See Compliance Statement B : [facility]/ Performed by [facility], [address] [place] [address] www.[facility], Darrell Dee MD - Lab. Director Specimen Anatomical Collection Method Collection Time Receive d Time (Source) Location / / Volume Laterality 03/31/2016 4:38 PM 6 6:17 CDT PM CDT Narrative PN SOFT - 04/04/2016 2:00 PM CDT Performed at [facility] [address] [place] [address] CLIA number [id number] Lavon Song MD LAB_1 Performing Organization Address City/State/ZIP Code Phon e Number PN SOFT [address] [place], [place] [phone] documented in this encounter Visit Diagnoses Diagnosis Abnormal weight gain documented in this encounter Care Teams Track Service Person Relationship Specialty Start Date End Date Kinga Pickett APRN, DINING CAR STEWARD PCP - General 03/15/15 07/04/16 [address] [place] [address] documented as of this encounter
--- OUTSIDE RECORDS SUMMARY | 2022-03-20 16:15 | XMS_ITS | Encounter Summary ---
:1975 Author Organization [employer] Address [address] [place] [address] Care Team Providers Name Role Phone Kinga Pickett APRN, FLAT SCREEN WORKER Primary Care Provider [phone] Reason for Visit Reason Comments LAB RESULTS Encounter Details Date Type Department Care Team Description 09/08/2015 Telephone [facility] [address] Eileen Bernabe APRN, LAB RESULTS Gastroenterology FLAT SCREEN WORKER [address] [address] [place] [address] [place], [place] [phone] (Wo rk) Social History Tobacco Use Types Packs/Day Years Used Date Smoking Tobacco: Never Assessed Sex Assigned at Date Recorded Female 05/09/2021 7:19 PM CONTRACT NEGOTIATION MANAGER documented as of this encounter Nursing Notes Dayana Jauregui, MARIO - 09/08/2015 9:11 AM CDT Call from lab. Stool for C-Diff cancelled, stool brought in was formed. FYI to TB LOGISTICS SPECIALIST. documented in this encounter Plan of Treatment Upcoming Encounters Date Type Specialty Care Team Description 05/05/2022 Appointment Chemo Therapy/Infusion Services 09/15/2022 Telemedicine Gastroenterology Eusebio Haines MD [address] [place], [place] [address] (Wo rk) documented as of this encounter Visit Diagnoses Not on filedocumented in this encounter Care Teams Pipe Stem Sawyer Relationship Specialty Start Date End Date Kinga Pickett APRN, FLAT SCREEN WORKER PCP - General 03/15/15 07/04/16 [address] [place] [address] documented as of this encounter
--- OUTSIDE RECORDS SUMMARY | 2022-03-20 16:15 | XMS_ITS | Encounter Summary ---
:1975 Author Organization [employer] Address [address], [place] [address] Care Team Providers Name Role Phone Hoang Peacock APRN, EKG TECH Primary Care Provider [phone] Reason for Visit Reason Comments Refill Encounter Details Date Type Department Care Team Description 06/30/[address] [facility] [address] Sasha Peacock APRN, Refill Medicine [facility] [address] [place] [address] [place], [place] [id number] (Wo rk) Social History Tobacco Use Types Packs/Day Years Used Date Smoking Tobacco: Never Assessed Sex Assigned at Date Recorded Female 05/09/2021 7:19 PM COKE STILL CLEANER documented as of this encounter Nursing Notes User, Bryan - 07/30/2015 11:31 AM CST LORazepam (ATIVAN) 0.5 mg tablet - MEDICATION STARTED: 01/18/2015 - LAST REFILLED: 18 DAYS AGO ON 06/12/2015, QTY: 15, Refills: 0, Sig: take 1 tablet by mouth every 6hours as needed for anxiety. (unchanged) - NOTIFICATION: Medication is not assigned to a protocol. - LAST QUALIFYING VISIT WITH HOANG PEACOCK: 03/24/2015 (A more recent visit in family medicine was found) - NEXT SCHEDULED VISIT: None Powered by iCharts, Reference: [id number], 06/30/2015 11:56:26 AM COKE STILL CLEANER, Pool: [id number] MAGGIE REFILL ([id number]) STILL CLEANER documented in this encounter Plan of Treatment Upcoming Encounters Date Type Specialty Care Team Description 05/05/2022 Appointment Chemo Therapy/Infusion Services 09/15/2022 Telemedicine Gastroenterology Eusebio Haines MD [address] [place], [place] [address] (Wo rk) documented as of this encounter Visit Diagnoses Diagnosis Situational stress (HRC) - Primary Other psychological or physical stress, not elsewhere classified documented in this encounter Care Teams Abrasives Sales Representative Relationship Specialty Start Date End Date Hoang Peacock, ALCOHOLIC COUNSELOR, EKG TECH PCP - General 03/15/15 07/04/16 [address] [place], [place] [id number] documented as of this encounter
--- OUTSIDE RECORDS SUMMARY | 2022-03-20 16:15 | XMS_ITS | Encounter Summary ---
:1975 Author Organization [employer] Address [address] [address] Care Team Providers Name Role Phone Kinga Pickett APRN, CNP Primary Care Provider [phone] Reason for Visit Reason Comments CONSULT Encounter Details Date Type Department Care Team Description 09/01/2015 Initial Consult Eileen White Chronic diarrhea (Primary Dx); Gastroenterology RUDY King CNP Hematochezia [address] [address] [address] [place] Grey [address] MAG[address] [place]HAN [phone] Social History Tobacco Use Types Packs/Day Years Used Date Smoking Tobacco: Never Assessed Sex Assigned at Date Recorded Female 05/09/2021 7:19 PM MANUFACTURING TECHNOLOGY ANALYST documented as of this encounter Last Filed Vital Signs Vital Sign Reading Time Taken Comments Blood Pressure 127/77 09/01/2015 1:01 PM MANUFACTURING TECHNOLOGY ANALYST Pulse 85 09/01/2015 1:01 PM MANUFACTURING TECHNOLOGY ANALYST Temperature - - Respiratory Rate 15 09/01/2015 1:01 PM MANUFACTURING TECHNOLOGY ANALYST Oxygen Saturation - - Inhaled Oxygen Concentration - - Weight 73.6 kg (162 lb 5 oz) 09/01/2015 1:01 PM MANUFACTURING TECHNOLOGY ANALYST Height - - Body Mass Index 26.09 06/12/2015 10:45 AM MANUFACTURING TECHNOLOGY ANALYST documented in this encounter Progress Notes Eileen Bernabe APRN, CNP - 09/01/2015 2:53 PM CST FACTURING TECHNOLOGY ANALYST Eileen Bernabe APRN, CNP - 09/01/2015 1:42 PM CST Progress Notes signed by Eileen Bernabe APRN, CNP at 09/01/15 7618 Author: Eileen Bernabe APRN, CNP Service: (none) Author Type: Nurse Practitioner Filed: 09/01/15 1801 Note Time: 09/01/15 141 Status: Signed Cooker Sulfate: Eileen Bernabe APRN, CNP (Nurse Practitioner) NAME: IGGY DUARTE MR#: [id number] CSN: [id number] AUTHENTICATING CLINICIAN: MICHAEL Martini CONFIRM #: [id number] LOC: 533 CLINIC PROGRESS NOTE DATE OF VISIT: 09/01/2015 : 1975 CHIEF COMPLAINT: Consult for chronic diarrhea. HPI: I am asked to see Iggy Duarte, a pleasant 40-year-old female here today by self-referral for the above concern. Iggy started having diarrhea and abdominal pain in 2000, and she has had episodes of symptoms ever since. Her symptoms are primarily food related, but she can have pain and diarrhea at other times, including nocturnally. She has 3- 5 episodes of mushy, explosive, urgent stool preceded by cramping. Shedoes have relief of cramping after defecation. In order to manage her symptoms, she takes up to 8 Imodium daily and 40 mg of Bentyl 4 times daily (which is actually twice the recommended daily maximum). Over the past month, she has begun to have blood in the stool. She describes this as bright-red chunks that are fleshy and look similar to menstrual blood. She has had this mixed in with the stool in the water and upon wiping. This has occurred with every defecation over the past month or two. She tells me she has never had hemorrhoids and there is no rectal pain with defecation. She describes theabdominal pain as a cramping, twisting sensation that can be severe which is why, she tells me, she uses so much Bentyl. The Bentyl works very well for her. She often uses Bentyl and Imodium to preventdiarrhea, particularly when she goes out of her home and when she is eating out. Iggy denies nausea, vomiting, feverishness, chills, unusual joint aches, weight change, fatigue, melena. She does have daily bloating and gassiness. PAST HEALTH HISTORY: Her current problem list, past medical and surgical history were reviewed. CURRENT MEDICATIONS: Reviewed. ALLERGIES: Adverse reactions to medications were reviewed. FAMILY HISTORY: Reviewed. There is no notation of GI cancers or GI conditions. SOCIAL HISTORY: Reviewed. She is a former smoker who smoked a quarter pack of cigarettes a day for 15 years for a 3-3/4-pack-year history. She never used smokeless tobacco products. She rarely drinks alcohol. REVIEW OF SYSTEMS: A complete review was discussed with the patient, and significant elements were noted in the HPI. OBJECTIVE: Blood pressure 127/77, pulse 85, respirations 15. CONSTITUTIONAL: Well developed and nourished, in no apparent distress. EYES: Anicteric. LUNGS: Respiratory effort is normal. ABDOMEN: Soft and nontender. NEUROLOGICAL: Alert and oriented x3. SKIN: Warm and dry. EXTREMITIES: Nonedematous. PSYCHIATRIC: Mood, affect, and behaviors appropriate. LABS, IMAGING, AND PROCEDURES: She has a history of elevated WBC. No history of colonoscopy, although she had a flex sig many yearsago which, she says, was negative. ASSESSMENT: Chronic diarrhea with new hematochezia. Iggy actually does meet the criteria one would associate with irritable bowel syndrome. However, she does also have alarm features that warrant further structural investigation, namely nocturnal pain that awakens her and hematochezia. She also had Clostridium difficile 2 years ago. We will get some labs and a colonoscopy and have her come back about a week afterwards. I encouraged her to limit the Bentyl to 20 mg 4 times a day, and she may continue the Imodium use. PLAN: 1. Colonoscopy. 2. Labs to include CBC with differential, CRP, C difficile, and stool culture. 3. Bentyl 20 mg q.i.d. maximum daily. 4. Imodium, up to 8 tablets daily for diarrhea management. 5. A followup after colonoscopy. PATIENT INSTRUCTIONS: Iggy was given a summary of this visit, diagnoses, suggested interventions, orders, and followup. She was encouraged to call or come back in if her symptoms continue or worsen. Thank you for allowing me to participate in the care of your patient. TLB:MEDQ C: CONFIRM #: [id number] FACTURING TECHNOLOGY ANALYST documented in this encounter Plan of Treatment Upcoming Encounters Date Type Specialty Care Team Description 05/05/2022 Appointment Chemo Therapy/Infusion Services 09/15/2022 Telemedicine Gastroenterology Eusebio Haines MD [address] [place], [place] [phone] (Wo rk) documented as of this encounter Visit Diagnoses Diagnosis Chronic diarrhea - Primary Diarrhea Hematochezia Blood in stool documented in this encounter Care Teams Daytime Caregiver Relationship Specialty Start Date End Date Kinga Pickett APRN, NEEDLE LOOM OPERATOR HELPER PCP - General 03/15/15 07/04/16 [address] [place], [place] [phone] documented as of this encounter
--- OUTSIDE RECORDS SUMMARY | 2022-03-20 16:15 | XMS_ITS | Encounter Summary ---
:1975 Author Organization [employer] Address [address] [address] Care Team Providers Name Role Phone Hoang Peacock APRN, CNP Primary Care Provider [phone] Reason for Visit Reason Comments Refill Encounter Details Date Type Department Care Team Description 06/30/2015 Refill [facility] Hoang Morrow APRN, Refill [address] [place] [address] 7860 [facility] [phone] [facility] [address] (Wo rk) Social History Tobacco Use Types Packs/Day Years Used Date Smoking Tobacco: Never Assessed Sex Assigned at Date Recorded Female 05/09/2021 7:19 PM BIZTALK ADMINISTRATOR documented as of this encounter Nursing Notes UserBryan - 07/01/2015 7:53 AM CST dicyclomine (BENTYL) 20 mg tablet [Pharmacy Med Name: DICYCLOMINE HCL 20MG TABS] - MEDICATION STARTED: 01/03/2010 - LAST REFILLED ON: 09/30/2014, QTY: 360, Refills: 3, Sig: take 1 tablet by mouth 4 times daily as needed. (unchanged) - NOTIFICATION: Medication is not assigned to a protocol. - LAST QUALIFYING VISIT WITH HOANG PEACOCK: 03/24/2015 (A more recent visit in family medicine was found) - NEXT SCHEDULED VISIT: None Powered by 4Less, Reference: [id number], 06/30/2015 8:31:58 AM BIZTALK ADMINISTRATOR, Americo: DEANDRA FP REFILL ([id number]) ALK ADMINISTRATOR documented in this encounter Plan of Treatment Upcoming Encounters Date Type Specialty Care Team Description 05/05/2022 Appointment Chemo Therapy/Infusion Services 09/15/2022 Telemedicine Gastroenterology Eusebio Haines MD [address] [place], [place] [address] (Wo rk) documented as of this encounter Visit Diagnoses Not on filedocumented in this encounter Care Teams Door Person Relationship Specialty Start Date End Date Hoang Peacock, HISTORY CARD CLERK, DYNAMOMETER REPAIRER PCP - General 03/15/15 07/04/16 [address] [place], [place] [phone] documented as of this encounter
--- OUTSIDE RECORDS SUMMARY | 2022-03-20 16:15 | XMS_ITS | Encounter Summary ---
:1975 [facility] Address [address] [place] [address] Care Team Providers Name Role Phone Kinga Pickett APRN, FIRE ALARM DISPATCHER Primary Care Provider [phone] Reason for Visit Reason Comments Refill Encounter Details Date Type Department Care Team Description 08/23/2015 Refill [facility] Aj Roca APRN, Refill [address] [place] [address] [place] [phone] [place], [place] [address] (Wo rk) Social History Tobacco Use Types Packs/Day Years Used Date Smoking Tobacco: Never Assessed Sex Assigned at Date Recorded Female 05/09/2021 7:19 PM SEPTIC PUMP TRUCK DRIVER documented as of this encounter Nursing Notes Talita Shah RN - 08/23/2015 3:26 PM CST Requested Prescriptions No prescriptions requested or ordered in this encounter Previously pended medication(s) have been addressed or refilled in another encounter or office visit. No further action is needed. IC PUMP TRUCK DRIVER User, Bryan - 08/23/2015 3:26 PM CST traZODone (DESYREL) 50 mg tablet [Pharmacy Med Name: TRAZODONE HCL 50MG TABS] - MEDICATION STARTED: 06/12/2015 - LAST REFILLED ON: 06/12/2015, QTY: 30, Refills: 5, Sig: take 1 tablet by mouth nightly. (unchanged) - WARNING: The patient is requesting a renewal from a different pharmacy. - REFILL: 12 months (if warnings resolved) - RATIONALE: This refill should last until the patient is due for an office visit. - LAST QUALIFYING VISIT WITH AJ SANDOVAL C: 06/12/2015 - NEXT SCHEDULED VISIT: None - SBP: 132.0mm Hg on 06/12/2015 - DBP: 84.0mm Hg on 06/12/2015 Powered by Qire, Reference: [id number], 08/23/2015 11:02:09 AM Americo RUTHERFORD: DEANDRA FP REFILL ([id number]) IC PUMP TRUCK DRIVER documented in this encounter Plan of Treatment Upcoming Encounters Date Type Specialty Care Team Description 05/05/2022 Appointment Chemo Therapy/Infusion Services 09/15/2022 Telemedicine Gastroenterology Eusebio Haines MD [address] [place], [place] [address] (Wo rk) documented as of this encounter Visit Diagnoses Not on filedocumented in this encounter Care Teams Electroencephalograph Technician Relationship Specialty Start Date End Date Kinga Pickett, SUGAR CANE PLANTING EQUIPMENT OPERATOR, FIRE ALARM DISPATCHER PCP - General 03/15/15 07/04/16 [address] [place], [place] [phone] documented as of this encounter
--- OUTSIDE RECORDS SUMMARY | 2022-03-20 16:15 | XMS_ITS | Encounter Summary ---
:1975 Author Organization [employer] Address [address], [place] [address] Care Team Providers Name Role Phone Hoang Peacock APRN, CNP Primary Care Provider [phone] Encounter Details Date Type Department Care Team Description 11/23/2015 Refill Order [facility] Hoang Morrow, [address] [facility] [place] [address] [address] [facility] [phone] [facility] [address] (Wo rk) Social History Tobacco Use Types Packs/Day Years Used Date Smoking Tobacco: Never Assessed Sex Assigned at Date Recorded Female 05/09/2021 7:19 PM ELECTRON BEAM PHOTO MASK MAKER documented as of this encounter Nursing Notes UserBryan - 11/24/2015 11:13 AM CDT ORDER THE FOLLOWING: - K: Pended to encounter. - NA: Pended to encounter. SCHEDULE THE FOLLOWING: - K BY: Now (Due as of 09/25/2015 for hydrochlorothiazide (ORETIC) 25 mg tablet) - NA BY: Now (Due as of 09/25/2015 for hydrochlorothiazide (ORETIC) 25 mg tablet) - LAST QUALIFYING VISIT WITH HOANG PEACOCK: 09/30/2014 (A more recent visit in Family Medicine was found) - NEXT SCHEDULED VISIT: None - NEXT LAB APPOINTMENT: None Powered by Zoomingo, Reference: [id number], 11/23/2015 10:36:06 AM CDT, Pool: DEANDRA CARMELITA REFILL ([id number]) TRON BEAM PHOTO MASK MAKER Ivette Garza CMA - 11/24/2015 11:13 AM CDT Lab orders have been placed per protocol. documented in this encounter Plan of Treatment Upcoming Encounters Date Type Specialty Care Team Description 05/05/2022 Appointment Chemo Therapy/Infusion Services 09/15/2022 Telemedicine Gastroenterology Eusebio Haines MD [address] [place], [place] [address] (Wo rk) documented as of this encounter Visit Diagnoses Diagnosis Encounter for long-term (current) use of medications - Primary Encounter for long-term (current) use of other medications documented in this encounter Care Teams Sales Appointment Coordinator Relationship Specialty Start Date End Date Hoang Peacock, POWER SHOVEL OPERATOR, DONATION SPECIALIST PCP - General 03/15/15 07/04/16 [address] [place], [place] [address] documented as of this encounter
--- OUTSIDE RECORDS SUMMARY | 2022-03-20 16:15 | XMS_ITS | Encounter Summary ---
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 I have sent in a prescription for Lasix. She is to use one tab along with potassium chloride prescription in the morning as needed for edema. It may take a week to notice improvement. On days that she takes Lasix, she is to hold hydrochlorothiazide. When edema resolves, she should go back to daily hydrochlorothiazide. Lubna Salazar RN - 01/17/2016 2:56 PM CDT Reason for Call: Medication Problem. Next Steps: Document further recommendations and route to appropriate person or pool. Caller IS expecting a call back from Care Team. Additional Information: Lubna Salazar RN - 01/17/2016 2:51 PM CDT From: Idania Duarte To: Sheeba Castillo APRN, CNP Sent: 01/17/2016 10:57 AM CDT Subject: Medication Renewal Request Original authorizing provider: Sheeba Castillo APRN, CNP Kelly L Carlson would like a refill of the following medications: hydrochlorothiazide (ORETIC) 25 mg tablet [Sheeba Castillo APRN, CNP] Preferred pharmacy: [place] [address] Comment: I have been taking 2 of these daily for the last 3 weeks and I still have ankles and feet that are so swollen that they hurt. Elisha been watching my salt intake, drinking more water, elevating my feet in bed at night and wear compression stockings daily and it is not helping and the swelling only goes d own a little bit over night. Can I be switched to another water pill instead to see if that would help? ING OPERATOR documented in this encounter Miscellaneous Notes Refill (Converted) - Gary Christy Provider - 01/17/2016 10:57 AM CDT Medication Renewal Request From User: Original authorizing provider: Sheeba Castillo APRN, CNP Kelly L Carlson would like a refill of the following medications: hydrochlorothiazide (ORETIC) 25 mg tablet [Sheeba Castillo APRN, [place]] Preferred pharmacy: [facility] [place], [place] - [address] Comment: I have been taking 2 of these daily for the last 3 weeks and I still have ankles and feet that are so swollen that they hurt. Elisha been watching my salt intake, drinking more water, elevating my feet in bed at night and wear compression stockings daily and it is not helping and the swelling only goes down a little bit over night. Can I be switched to another water pill instead to see if that would help? documented in this encounter Plan of Treatment Upcoming Encounters Date Type Specialty Care Team Description 05/05/2022 Appointment Chemo Therapy/Infusion Services 09/15/2022 Telemedicine Gastroenterology Eusebio Haines MD [address] [place], [place] [address] (Wo rk) documented as of this encounter Visit Diagnoses Diagnosis Bilateral edema of lower extremity - Frannie vicki Edema Essential hypertension (HRC) Unspecified essential hypertension documented in this encounter Care Teams Department Director Relationship Specialty Start Date End Date Kinga Pickett APRN, NURSE OBGYN PCP - General 03/15/15 07/04/16 [address] [place] [address] documented as of this encounter
--- OUTSIDE RECORDS SUMMARY | 2022-03-20 16:15 | XMS_ITS | Encounter Summary ---
:1975 Author Organization [employer] Address [address] [place] [address] Care Team Providers Name Role Phone Nieves Kingaimer Lowe APRN, CNP Primary Care Provider [phone] Reason for Visit Reason Comments Medication Questions Encounter Details Date Type Department Care Team Description 08/23/2015 Telephone [facility] Sheeba Castilol, [facility] Questions Medicine [address] [place] [address] [place] [address] [phone] (Wo rk) Social History Tobacco Use Types Packs/Day Years Used Date Smoking Tobacco: Never Assessed Sex Assigned at Date Recorded Female 05/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 E STAFF Matilde Vera - 08/23/2015 2:52 PM CST Patient states that she verbally was told she could take 1-2 tabs of the Trazodone 50 mg at bedtime.The pharmacy script only shows 1 tablet nightly. Requesting that an amended Rx be sent to the pharmacy E STAFF documented in this encounter Plan of Treatment Upcoming Encounters Date Type Specialty Care Team Description 05/05/2022 Appointment Chemo Therapy/Infusion Services 09/15/2022 Telemedicine Gastroenterology Eusebio Haines MD [address] [place], [place] [address] (Wo rk) documented as of this encounter Visit Diagnoses Diagnosis JANNET (generalized anxiety disorder) (HRC) - Primary Generalized anxiety disorder documented in this encounter Care Teams Electronic Data Interchange Specialist Relationship Specialty Start Date End Date Kinga Pickett APRN, AREA PLANT MANAGER PCP - General 03/15/15 07/04/16 [address] [place] [address] documented as of this encounter
--- OUTSIDE RECORDS SUMMARY | 2022-03-20 16:15 | XMS_ITS | Encounter Summary ---
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 documented in this encounter Results Vitamin D 25-Hydroxy, Total (02/05/2016 10:39 AM CDT) P athologist Signature Vitamin D 25 Oh 28 20 - 80 HP CONVERSION ng/mL Comment: Deficiency = <20 Adequate ??= 20-29 Preferred = 30-50 Uncertain safety = 51-80 High = >80 Specimen Anatomical Collection Method Collection Time Receive d Time (Source) Location / / Volume Laterality 02/05/2016 10:39 02/05/2016 4:00 AM CDT PM CDT Narrative HP CONVERSION - 02/07/2016 10:30 AM CDT Performed at [facility], [address] [place] [address] CLIA number [id number] Chandrika Wiggins APRN, CNP LAB_1 Performing Organization Address City/State/[facility] Code Phon e Number HP CONVERSION documented in this encounter Visit Diagnoses Diagnosis Malaise and fatigue Other malaise and fatigue documented in this encounter Care Teams Matchbook Assembler Relationship Specialty Start Date End Date Kinga Pickett APRN, CNP PCP - General 03/15/15 07/04/16 [address] [place] [address] documented as of this encounter
--- OUTSIDE RECORDS SUMMARY | 2022-03-20 16:15 | XMS_ITS | Encounter Summary ---
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 User, Bryan - 11/24/2015 9:55 AM CDT CYCLAFEM 1/35, 28, 1-35 mg-mcg per tablet [Pharmacy Med Name: CYCLAFEM 1/35 1-35MG-MCG TABS] - MEDICATION STARTED: 03/03/2014 - LAST REFILLED ON: 09/30/2014, QTY: 112, Refills: 4, Sig: take 1 tablet by mouth daily (every 24 hours). patient takes continously (unchanged) - REFILL: 3 months - RATIONALE: This is a courtesy refill. Patient is overdue for an office visit. This will be the last refill authorized by the protocol. - LAST QUALIFYING VISIT WITH ABELIVA HOANG A: 09/30/2014 (A more recent visit in Family Medicine was found) - NEXT SCHEDULED VISIT: None - SBP: 136.0mm Hg on 11/18/2015 - DBP: 72.0mm Hg on 11/18/2015 ADDITIONAL SCHEDULING ACTIONS TAKEN: - K for hydrochlorothiazide (ORETIC) 25 mg tablet (Sent to [facility]) - NA for hydrochlorothiazide (ORETIC) 25 mg tablet (Sent to [facility]) Powered by [employer], Reference: [id number], 11/23/2015 10:36:05 AM CDT, Pool: [facility] FP REFILL ([id number]) Talita Mckeon RN - 11/23/2015 6:36 PM CDT Further assistance needed to complete refill request Reason: RN Reviewed--Need signed order in [email or web address] for pended medication. Last visit with Sheeba Castillo APRN, INTERLOCKING AND SIGNAL MECHANIC on 11/18/15. Next Steps: Review pended order for accuracy. Sign. Close encounter. Requested Prescriptions Pending Prescriptions Disp Refills ??? norethindrone-ethinyl estradiol (CYCLAFEM , 28,) 1-35 mg-mcg per tablet [Pharmacy Med Name: CYCLAFEM 1-35MG-MCG TABS] 112 tablet 3 Sig: Take 1 tablet by mouth daily (every 24 hours). PATIENT TAKES CONTINOUSLY documented in this encounter Plan of Treatment Upcoming Encounters Date Type Specialty Care Team Description 05/05/2022 Appointment Chemo Therapy/Infusion Services 09/15/2022 Telemedicine Gastroenterology Eusebio Haines MD [address] [place] [address] (Wo rk) documented as of this encounter Visit Diagnoses Not on filedocumented in this encounter Care Teams Dispensing And Measuring Optician Relationship Specialty Start Date End Date Hoang Pickett APRN, INTERLOCKING AND SIGNAL MECHANIC PCP - General 03/15/15 07/04/16 [address] [place], [place] [id number] documented as of this encounter
--- OUTSIDE RECORDS SUMMARY | 2022-03-20 16:15 | XMS_ITS | Encounter Summary ---
:1975 Author Organization [facility] Address [address] [place] [address] Care Team Providers Name Role Phone Kinga Pickett APRN, CNP Primary Care Provider [phone] Reason for Visit Reason Comments Eye Exam Encounter Details Date Type Department Care Team Description 07/13/2015 Office Visit Serafin Galvan Examinatio n of eyes and vision (Primary Dx); Ophthalmology OD Myopia with astigmatism, [facility] [address] [facility] [address] [place] [address] [address] [phone] [place] [address] (Wo rk) Social History Tobacco Use Types Packs/Day Years Used Date Smoking Tobacco: Never Assessed Sex Assigned at Date Recorded Female 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 Basically healthy. Assessment: Diagnosis and Associated Orders ICD-10-CM ICD-9-CM 1. Examination of eyes and vision Z01.00 V72.0 WI REFRACTION 2. Myopia with astigmatism, bilateral H52.13 367.1 [place] REFRACTION Plan: 1. Discussed findings with patient. 2. Glasses Rx given. 3. Return to clinic in 1 year(s) or as needed. EATION TECHNICIAN documented in this encounter Plan of Treatment Upcoming Encounters Date Type Specialty Care Team Description 05/05/2022 Appointment Chemo Therapy/Infusion Services 09/15/2022 Telemedicine Gastroenterology Eusebio Haines MD [address] [place], [place] [address] (Wo rk) documented as of this encounter Visit Diagnoses Diagnosis Examination of eyes and vision - Primary Myopia with astigmatism, bilateral documented in this encounter Care Teams Surveying Or Spatial Science Technician Relationship Specialty Start Date End Date Kinga Pickett, WORKERS' COMPENSATION CLAIMS EXAMINER, PALLET STONE INSERTER PCP - General 03/15/15 07/04/16 [address] [place], [place] [id number] documented as of this encounter
--- OUTSIDE RECORDS SUMMARY | 2022-03-20 16:15 | XMS_ITS | Encounter Summary ---
:1975 Author Organization [facility] Address [address], [place] [address] Care Team Providers Name Role Phone Kinga Pickett APRN, CNP Primary Care Provider [phone] Reason for Visit Reason Comments Follow-up Encounter Details Date Type Department Care Team Description 11/18/2015 Office Visit Eileen White, Other ul cerative Gastroenterology SIER[facility] GRANT colitis with rectal [address] [address] [address] bleeding (HRC) [place] [address] [place], [place] (Primary Dx) [phone] (Wo rk) Social History Tobacco Use Types Packs/Day Years Used Date Smoking Tobacco: Never Assessed Sex Assigned at Date Recorded Female 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 I hope you had all your questions answered and issues addressed.If not please call us at [phone] option 2 or My Chart message me. Here is our plan for today: 1. You can try to use just the suppositories: take to Lialda till you run out then stop. Use the Canasa nightly for 2-3 months before attempting a wean. 2. If you do have to go back on the Lialda because the Canasa won't control symptoms alone, be sure to get labs in 2-3 months. Call us to get the order in beforehand. 3. If you do great and have no problems, you can come in on a yearly basis. 4. If your symptoms get worse, or the medication or treatment we discussed doesn't help, please be sureto call or My Chart message me so we can address it. Sincerely, Eileen Bernabe CNP documented in this encounter Progress Notes Eileen Bernabe APRN, CNP - 11/23/2015 5:40 PM CDT Name: Idania Duarte MR#: [id number] CSN: [id number] Date of Visit: 11/18/2015 : 1975 Chief Complaint Patient presents with ??? Follow-up HPI: I am asked to see Idania Duarte, a pleasant 40 y.o. female, seen today in followup for ulcerative colitis. Idania began having diarrhea and abdominal pain in 2000, and she has had episodic symptoms ever since.?? She had hematochezia with every defecation over the past couple of months prior to her first visit here.?? She had abdominal pain described as cramping and twisting in the right lower quadrant and 3-5 episodes of mushy, explosive, very urgent stool.?? Labs revealed an elevated CRP and whiteblood cell count.?? Colonoscopy revealed moderately severe inflammatory changes in the rectum and mild inflammatory changes in the cecum and appendiceal orifice.?? She was given Canasa suppositories and these have helped as long as she uses them at least every other day. She is also on Lialda but has been off for a couple of weeks due to Rx expiring. Idania denies nausea, vomiting, abdominal pain; fever, chills, sweats; unusual joint aches, weight loss, fatigue; abnormal stool patterns, hematochezia, melena. REVIEW OF SYSTEMS: A complete review was discussed with the patient and significant elements were noted in the HPI. OBJECTIVE: BP 132/76 mmHg Pulse 86 Resp 16 Wt 176 lb (79.833 kg) Constitutional. Well developed and nourished in no apparent distress. Eyes: Anicteric. Lungs: Respiratory effort is normal. Abdomen: soft nontender Neurological: alert, oriented x 3 Skin: Warm and dry. Extremities: non edematous Psychiatric: Mood, affect, behavior appropriate for situation LABS, IMAGING, PROCEDURES: Reviewed in electronic medical record and as mentioned above. 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 She is in remission as long as she takes bothoral and topical mesalamine. Patient Instructions It was a pleasure to see you today! I hope you had all your questions answered and issues addressed.If not please call us at [phone] option 2 or My Chart message me. Here is our plan for today: 1. You can try to use just the suppositories: take to Lialda till you run out then stop. Use the Canasa nightly for 2-3 months before attempting a wean. 2. If you do have to go back on the Lialda because the Canasa won't control symptoms alone, be sure to get labs in 2-3 months. Call us to get the order in beforehand. 3. If you do great and have no problems, you can come in on a yearly basis. Idania Duarte was given a summary of this visit, diagnoses, suggested interventions, orders and followup. She was encouraged to call or come back in if her symptoms continue or worsen. Thank you for allowing me to participate in the care of your patient. Total Time: 20 minutes. Counseling Time: 15 mn Eileen Bernabe APRN, CNP documented in this encounter Plan of Treatment Upcoming Encounters Date Type Specialty Care Team Description 05/05/2022 Appointment Chemo Therapy/Infusion Services 09/15/2022 Telemedicine Gastroenterology Eusebio Haines MD [address] [place] [address] (Wo rk) documented as of this encounter Visit Diagnoses Diagnosis Other ulcerative colitis with rectal ble eding (HRC) - Primary documented in this encounter Care Teams Hand Sewer Relationship Specialty Start Date End Date Kinga Pickett, CARTOGRAPHIC ENGINEER, ANALYST PCP - General 03/15/15 07/04/16 [address] [place], [place] [address] documented as of this encounter
--- OUTSIDE RECORDS SUMMARY | 2022-03-20 16:15 | XMS_ITS | Encounter Summary ---
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 documented in this encounter Results Stool Culture (09/08/2015 6:00 AM CDT) Component Value Ref Test Analysis Performed At [facility] Range Method Time Signature Source Stool HP CONVERSION Site HP CONVERSION Stool Culture No Salmonella, HP CONVERSI ON Shigella, Campylobacter or E. coli 0157:H7 Stool Culture Isolated HP CONVERSION Stool Culture No Aeromonas or HP CONVERS ION Plesiomonas Isolated Shigatoxin Negative for HP CONVERSION Enzyme Shiga Toxin 1 ImmunoAssay and Shiga Toxin 2 Specimen (Source) Anatomical Collection Method Collection Time Re ceived Time Location / / Volume Laterality Stool: 09/08/2015 6:00 AM CDT Narrative HP CONVERSION - 09/11/2015 2:59 PM CDT Performed at [facility], [address] [place] [address], CLIA Number [id number] Eileen Bernabe APRN, CNP LAB_1 Performing Organization Address City/State/ZIP Code Phon e Number HP CONVERSION documented in this encounter Visit Diagnoses Diagnosis Chronic diarrhea Diarrhea Hematochezia Blood in stool documented in this encounter Care Teams Manager Diversity Relationship Specialty Start Date End Date Kinga Pickett APRN, SIERRA PCP - General 03/15/15 07/04/16 [address] [place] [address] documented as of this encounter
--- OUTSIDE RECORDS SUMMARY | 2022-03-20 16:15 | XMS_ITS | Encounter Summary ---
:1975 Author Organization [employer] Address [address], [place] [address] Care Team Providers Name Role Phone Kinga Pickett APRN, CNP Primary Care Provider [phone] Reason for Visit Reason Comments Refill Encounter Details Date Type Department Care Team Description 07/02/2015 Refill [facility] Kinga Morrow APRN, Refill [address] [place] [address] [address] [facility] [phone] [facility] [address] (Wo rk) Social History Tobacco Use Types Packs/Day Years Used Date Smoking Tobacco: Never Assessed Sex Assigned at Date Recorded Female 05/09/2021 7:19 PM MISDRAW HAND documented as of this encounter Nursing Notes Adri Sanchez LPN - 07/02/2015 1:59 PM CST Message to pt with Clay note below RAW HAND Matilde Vera - 07/02/2015 1:44 PM CST Rx faxed RAW HAND Sheeba Castillo APRN, CNP - 07/02/2015 1:32 PM CST Call pt. Lorazepam refilled. She is due for follow up visit next week. No appt scheduled. RAW HAND Matilde Vera - 07/02/2015 10:34 AM CST Last fill date: 06-12-15 for #15 per the pharmacy Last seen: 06-12-15 No upcoming appts RAW HAND documented in this encounter Plan of Treatment Upcoming Encounters Date Type Specialty Care Team Description 05/05/2022 Appointment Chemo Therapy/Infusion Services 09/15/2022 Telemedicine Gastroenterology Eusebio Haines MD [address] [place], [place] [phone] (Wo rk) documented as of this encounter Visit Diagnoses Diagnosis Situational stress (HRC) - Primary Other psychological or physical stress, not elsewhere classified documented in this encounter Care Teams Coat Baster Relationship Specialty Start Date End Date Kinga Pickett APRN, SIERRA PCP - General 03/15/15 07/04/16 [address] [place], [place] [id number] documented as of this encounter
--- OUTSIDE RECORDS SUMMARY | 2022-03-20 16:15 | XMS_ITS | Encounter Summary ---
:1975 Author Organization [facility] Address [address], [place] [address] Care Team Providers Name Role Phone Kinga Pickett APRN, CNP Primary Care Provider [phone] Encounter Details Date Type Department Care Team Description 09/22/2015 Hospital Encounter [facility] Ashkan Rizo Ch ronic diarrhea; 6[address] End[address] Hematochezia [address] [facility] 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 0 02/15/2012 Antacid 1000 MG Reported on 08/14/2016 Multiple Vitamin Take 1 tablet by 0 11/14/2011 (MULTI-VITAMIN OR) mouth daily (every 24 hours). Calcium Carbonate Take by mouth. 0 02/15/201201/2016 Antacid CHEW dicyclomine (BENTYL) Take 1 tablet by 360 tablet 3 6 07/24/2016 20 MG tablet mouth 4 times daily as needed. mesalamine (aka Place 1 suppository 30 suppository 11 016 12/31/2015 CANASA) 1000 MG supp rectally nightly. SUPP mesalamine (CANASA) Place 1 suppository 30 suppository 11 07/30/2016 1000 MG suppository rectally nightly. Norethin-Eth Estrad Take 1 tablet by 112 tablet 4 09/30/2014 11/23/2015 Triphasic mouth daily (every (ORTHO-NOVUM7/12/29) 24 hours). Patient 0.5/0.75/1-35 MG-MCG takes continously tablet norethindrone-eth Take 1 tablet by 28 tablet 0 07/05/2011 0 07/19/2016 estradiol (AKA mouth daily TAKE NORINYL, ORTHO ACTIVE PILLS DAILY NOVUM) 1-35 MG-MCG THEN DISCARD tablet INACTIVE PILLS AND IMMEDIATELY START NEXT PACK. TAKING CONTINUOUSLY traZODone (DESYREL) Take 1-2 tablets by 60 tablet 5 016 11/18/2015 50 MG mouth nightly. tabletIndications: JANNET (generalized anxiety disorder) (HRC) triamterene-hydrochl Take 1 tablet by 90 tablet 4 5 11/18/2015 orothiazide mouth daily (every (MAXZIDE-25) 37.5-25 24 hours). MG tabletIndications: Essential hypertension (HRC) documented as of this encounter Progress Notes Amelie Soto RN - 09/22/2015 11:51 AM CDT Idania stated she routinely takes her prescribed control pill. She denied being beforesedation medications were given for colonoscopy procedure. 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 Procedure Notes Ashkan Rizo MD - 09/22/2015 11:16 AM CDT Procedures signed by Ashkan Rizo MD at 09/22/15 1116 Author: Ashkan Rizo MD Service: (none) Author Type: Physician Filed: 09/22/15 8315 Note Time: 09/22/151302 Status: Signed Spot Billing Clerk: Ashkan Rizo MD (Physician) Patient Name: Idania Duarte Procedure Date: 09/22/2015 11:16 AM Date of : 1975 Admit Type: Outpatient Age: 40 Gender: Female Note Status: Finalized Attending MD: Ashkan Rizo MD Procedure: Colonoscopy Indications: Hematochezia, Abdominal pain, Chronic diarrhea, Clinically significant diarrhea of unexplained origin Providers: Ashkan Rizo MD, Amelie Soto RN Referring MD: Eileen Bernabe NP, Kinga Pickett NP Medicines: Midazolam 8 mg IV, Fentanyl 250 micrograms IV Complications: No immediate complications. Estimated blood loss: Minimal. Procedure: After I obtained informed consent, the scope was passed under direct vision. Throughout the procedure, the patient's blood pressure, pulse, and oxygen saturations were monitored continuously. The [id number] was introduced through the anus and advanced to the terminal ileum, with identification of the appendiceal orifice and IC valve. The colonoscopy was performed without difficulty. The patient tolerated the procedure well. The quality of the bowel preparation was good. Findings: The perianal and digital rectal examinations were normal. Inflammation characterized by congestion (edema), erythema, friability, loss of vascularity and mucus was found in a continuous and circumferential pattern from the anus to the rectum. The length of the inflammation was approximately 5 cm. The recto-sigmoid colon, the sigmoid colon, the descending colon, the transverse colon, the hepatic flexure and the ascending colon were spared. This was moderate in severity. Biopsies were taken with a cold forceps for histology. A 3 mm polyp was found in the distal sigmoid colon. The polyp was sessile. The polyp was removed with a cold biopsy forceps. Resection and retrieval were complete. Patchy mild inflammation characterized by erythema was found in the cecum and at the appendiceal orifice. Biopsies were taken with a cold forceps for histology. The sigmoid colon, descending colon, transverse colon and ascending colon appeared normal. Biopsies for histology were taken with a cold forceps from the ascending colon, transverse colon, descending colon and sigmoid colon for evaluation of microscopic colitis. The terminal ileum appeared normal. The exam was otherwise without abnormality on direct and retroflexion views. Impression: - Inflammation was found from the anus to the rectum secondary to proctitis ulcerative colitis. Biopsied. This is the cause of the hematochezia and frequent stools. - One 3 mm polyp in the distal sigmoid colon. Resected and retrieved. - Patchy mild inflammation was found in the cecum and at the appendiceal orifice secondary to colitis. Biopsied. - The sigmoid colon, descending colon, transverse colon and ascending colon are normal. Biopsied. - The examined portion of the ileum was normal. - The examination was otherwise normal on direct and retroflexion views. Recommendation: - Await pathology results. - Use Rowasa suppositories 1 per rectum daily. - Return to referring physician. - Return to primary care physician as previously scheduled. - Repeat colonoscopy in 5-10 years for surveillance based on pathology results. Procedure Code(s): --- Professional --- 42842, Colonoscopy, flexible; with biopsy, single or multiple Diagnosis Code(s): --- Professional --- K51.20, Ulcerative (chronic) proctitis without complications D12.5, Benign neoplasm of sigmoid colon K52.9, Noninfective gastroenteritis and colitis, unspecified K92.1, Melena R10.9, Unspecified abdominal pain R19.7, Diarrhea, unspecified CPT copyright 2014 [employer]. All rights reserved. The codes documented in this report are preliminary and upon information coder review may be revised to meet current compliance requirements. Ashkan Rizo MD 09/22/2015 1:03 PM This document has been electronically signed. Number of Addenda: 0 Note Initiated On: 09/22/2015 11:16 AM Endoscopy Report documented in this encounter Miscellaneous Notes Medication History - Elmer Holbrook MD - 09/22/2015 11:59 PM CDT INPATIENT MEDS Encounter Date: 09/22/15 mesalamine (CANASA) 1,000 mg suppository Start Date:09/22/15, End Date:09/21/16, Frequency:AT BEDTIME *No Administrations Recorded 0.9% sodium chloride latex free syringe 10-60 mL Start Date:09/22/15, End Date:09/23/15, Frequency:PRN *No Administrations Recorded fentanyl (SUBLIMAZE) injection 25-100 mcg Start Date:09/22/15, End Date:09/23/15, Frequency:PRN *No Administrations Recorded midazolam (VERSED) injection 0.5-2 mg Start Date:09/22/15, End Date:09/23/15, Frequency:PRN *No Administrations Recorded ondansetron (ZOFRAN) injection 4 mg Start Date:09/22/15, End Date:09/23/15, Frequency:PRN *No Administrations Recorded fentanyl (SUBLIMAZE) 100 mcg/2 mL (50 mcg/mL) injection Start Date:09/22/15, End Date:-, Frequency:- *No Administrations Recorded midazolam (VERSED) 2 mg/2 mL (1 mg/mL) injection Start Date:09/22/15, End Date:-, Frequency:- *No Administrations Recorded 0.9% sodium chloride latex free syringe Start Date:09/22/15, End Date:-, Frequency:- *No Administrations Recorded fentanyl (SUBLIMAZE) 100 mcg/2 mL (50 mcg/mL) injection Start Date:09/22/15, End Date:-, Frequency:- *No Administrations Recorded midazolam (VERSED) 2 mg/2 mL (1 mg/mL) injection Start Date:09/22/15, End Date:-, Frequency:- *No Administrations Recorded documented in this encounter Plan of Treatment Upcoming Encounters Date Type Specialty Care Team Description 05/05/2022 Appointment Chemo Therapy/Infusion Services 09/15/2022 Telemedicine Gastroenterology Eusebio Haines MD [address] [place] [address] (Wo rk) documented as of this encounter Procedures Procedure Name Priority Date/Time Associated Comments Diagnosis ENDOSCOPY OBTAINED Routine 09/22/2015 12:47 PM Re sults for this ANATOMICAL PATH CDT procedure ar e in the results section. ENDOSCOPY, COLON, Routine 09/22/2015 11:16 AM Chronic di arrhea Results for this SCREENING/DIAGNOSTIC CDT Hematochezia procedu re are in the results section. SURGICAL PATH, PARK Routine 09/22/2015 7:00 AM Re sults for this NICOLLET CDT procedure are i n the results section. documented in this encounter Results ENDOSCOPY OBTAINED ANATOMICAL PATH (09/22/2015 12:47 PM CDT) athologist Signature Endo Tis Received HP CONVERSION Specimen Anatomical Collection Method Collection Time Receive d Time (Source) Location / / Volume Laterality 09/22/2015 12:47 09/22/2015 1:11 PM CDT PM CDT Narrative HP CONVERSION - 09/22/2015 1:11 PM CD[place] [address] CLIA number [id number] Ashkan Rizo MD LAB_1 Performing Organization Address City/State/ZIP Code Phon e Number HP CONVERSION Endoscopy, colon, diagnostic (09/22/2015 11:16 AM CDT) Specimen (Source) Anatomical Collection Method Collection Time Re ceived Time Location / / Volume Laterality 09/22/2015 11:16 AM CDT Narrative PN PROVATION - 09/22/2015 11:16 AM CDT Patient Name: Idania Duarte Procedure Date: 09/22/2015 11:16 AM Date of : 1975 Admit Type: Outpatient Age: 40 Gender: Female Note Status: Finalized Attending MD: Ashkan Rizo MD Procedure: ? Colonoscopy Indications: ? Hematochezia, A bdominal pain, Chronic ? diarrhea, Clinically significant ? diarrhea of unexplained origin Providers: ? Ashkan Rizo MD, Amelie Soto RN Referring MD: ?Eileen Bernabe NP, Kinga Lowe. ? Nieves, N P Medicines: ? Midazolam 8 mg IV, Fentanyl 250 ? microgram s IV Complications: ? No immediate com plications. Estimated ? blood los s: Minimal. Procedure: ? After I obtain ed informed consent, ? the scope was passed under direct ? vision. T hroughout the procedure, the ? patient's blood pressure, pulse, and ? oxygen sa turations were monitored ? continuou sly. The [id number] was ? introduce d through the anus and ? advanced to the terminal ileum, with ? identific ation of the appendiceal ? orifice a nd IC valve. The colonoscopy ? was perfo rmed without difficulty. The ? patient t olerated the procedure well. ? The quali ty of the bowel preparation ? was good. Findings: ? The perianal and digital rectal e xaminations were ? normal. ? Inflammation characterized by con gestion (edema), ? erythema, friability, loss of vas cularity and mucus ? was found in a continuous and cir cumferential pattern ? from the anus to the rectum. The length of the ? inflammation was approximately 5 cm. The ? recto-sigmoid colon, the sigmoid colon, the ? descending colon, the transverse colon, the hepatic ? flexure and the ascending colon w ere spared. This was ? moderate in severity. Biopsies we re taken with a cold ? forceps for histology. ? A 3 mm polyp was found in the dis fermin sigmoid colon. ? The polyp was sessile. The polyp was removed with a ? cold biopsy forceps. Resection an d retrieval were ? complete. ? Patchy mild inflammation characte rized by erythema ? was found in the cecum and at the appendiceal ? orifice. Biopsies were taken with a cold forceps for ? histology. ? The sigmoid colon, descending col on, transverse colon ? and ascending colon appeared norm al. Biopsies for ? histology were taken with a cold forceps from the ? ascending colon, transverse colon , descending colon ? and sigmoid colon for evaluation of microscopic ? colitis. ? The terminal ileum appeared arlene l. ? The exam was otherwise without ab normality on direct ? and retroflexion views. Impression: ?- Inflammation was found from the ? anus to t he rectum secondary to ? proctitis ulcerative colitis. ? Biopsied. This is the cause of the ? hematoche zayda and frequent stools. ? - One 3 m m polyp in the distal ? sigmoid c olon. Resected and retrieved. ? - Patchy mild inflammation was found ? in the ce cum and at the appendiceal ? orifice s econdary to colitis. ? Biopsied. ? - The sig moid colon, descending ? colon, tr ansverse colon and ascending ? colon are normal. Biopsied. ? - The exa mined portion of the ileum ? was arlene l. ? - The exa mination was otherwise ? normal on direct and retroflexion ? views. Recommendation: ?- Await patholog y results. ? - Use Row asa suppositories 1 per ? rectum da venkat. ? - Return to referring physician. ? - Return to primary care physician as ? previousl y scheduled. ? - Repeat colonoscopy in 5-10 years ? for surve illance based on pathology ? results. Procedure Code(s): ?? --- Professional - -- ? 81229, Co lonoscopy, flexible; with ? biopsy, s marcos or multiple Diagnosis Code(s): ?? --- Professional - -- ? K51.20, U lcerative (chronic) ? proctitis without complications ? D12.5, Be nign neoplasm of sigmoid ? colon ? K52.9, No ninfective gastroenteritis ? and colit is, unspecified ? K92.1, Me rodney ? R10.9, Un specified abdominal pain ? R19.7, Di arrhea, unspecified CPT copyright 2014 [employer]. All rights reserved. The codes documented in this report are preliminary and upon information coder review may be revised to meet current compliance requirements. Ashkan Rizo MD 09/22/2015 1:03 PM This document has been electronically si gned. Number of Addenda: 0 Note Initiated On: 09/22/2015 11:16 AM ? Endoscopy Report Eileen Fernando Bernabe WAX PUMPER, REVENUE COORDINATOR PN GI PROCEDURE ORDERABLES Performing Organization Address City/State/ZIP Code Phon e Number PN PROVATION Pathology Report (09/22/2015 7:00 AM CDT) [facility] gist Method Time Signature Path: FINAL SURGICAL PATHOLOGY REPORT HP CONVERSION Pathology #: [id number] ?Date Obtained: 09/22/2015 ? Date Received: 09/22/2015 DIAGNOSIS: A) Colon (random), biopsies: ?- Fragments of unremarkable colonic mucosa. B) Colon (periappendiceal and cecum), biopsies: ?- Mild active cryptitis. C) Colon (rectum), biopsies: ?- Mildly active chronic colitis. D) Colon (sigmoid polyp), biopsy: ?- Tubular adenoma (see note). NOTE: In specimen C all tissue fragments are affected. No g ranulomas are seen. Overall, the findings are consistent with inflamm atory bowel disease provided specific etiologies, such as infection, ar e excluded clinically. In specimen D the polyp appears to be most consistent with a sporadic adenoma; the adjacent uninvolved colonic mucosa is morpholo gically unremarkable. Clinical correlation is recommended. ? Sergio VOGEL ? (electronic signatur e) ? 09/23/2015 ??09:1 8 CLINICAL IMPRESSION: Diarrhea ORGAN/TISSUE SITE: Random colon/Appendix and cecum/Rectal/Sigmoid GROSS DESCRIPTION: ??A) The specimen is labeled random colon and consists of multiple ? dawn mucosal tissue fragments averaging 0.2 cm in grea test ? dimension. ??Filtered and entirely submitted in casse tte 5235 A. ??B) The specimen is labeled appendiceal and cecal biopsie s and ? consists of 3 dawn mucosal tissue fragments averaging 0.2 cm in ? greatest dimension. ??Filtered and entirely submitted in cassette ? 5235 B. ??C) The specimen is labeled rectal biopsy and consists o f 3 dawn ? mucosal tissue fragments averaging 0.2 cm in greatest dimension. ? Filtered and entirely submitted in cassette 5235 C. ??D) The specimen is labeled sigmoid polyp and consists o f a single ? dawn mucosal tissue fragment measuring 0.3 cm in great est ? dimension. ??Filtered and entirely submitted in casse tte 5235 D. ? WEYAL MICROSCOPIC DESCRIPTION: A-D) Microscopic examination performed. Performed at [facility], [address] [place] [id number] Specimen Anatomical Collection Method Collection Time Receive d Time (Source) Location / / Volume Laterality COLON STRUCTURE / 09/22/2015 7:00 AM 08/25 7:00 Unknown CDT AM CDT COLON STRUCTURE / 09/22/2015 7:00 AM 08/25 7:00 Unknown CDT AM CDT COLON STRUCTURE / 09/22/2015 7:00 AM 08/25 7:00 Unknown CDT AM CDT COLON STRUCTURE / 09/22/2015 7:00 AM 08/25 7:00 Unknown CDT AM CDT Ashkan Rizo MD LAB_1 Performing Organization Address City/State/ZIP Code Phon e Number HP CONVERSION documented in this encounter Visit Diagnoses Diagnosis Chronic diarrhea Diarrhea Hematochezia Blood in stool documented in this encounter Care Teams Printed Circuit Boards Laminator Relationship Specialty Start Date End Date Kinga Pickett, WAX PUMPER, REVENUE COORDINATOR PCP - General 03/15/15 07/04/16 [address] [place] [address] documented as of this encounter
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
--- OUTSIDE RECORDS SUMMARY | 2022-03-20 16:15 | XMS_ITS | Encounter Summary ---
:1975 Author Organization [employer] Address [address] [place] [address] Care Team Providers Name Role Phone Kinga Pickett APRN, CNP Primary Care Provider [phone] Reason for Visit Reason Onset Date Comments Medication Request 03/14/2016 Encounter Details Date Type Department Care Team Description 03/14/2016 Telephone [facility] Chandrika Wiggins, Medica tion Request Medicine RUDY, BUSINESS TRANSFORMATION CONSULTANT [address] [facility] [address] [place], [place] [address] [place], [place] [phone] (Wo rk) Social History Tobacco Use Types [...] at Date Recorded Female 05/09/2021 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 Chandrika Wiggins APRN, CNP - 03/14/2016 3:46 PM CDT This requires a longer discussion including controlled sub agrmt, and monitoring of HR, BP, EKG, so needs to be done in conjunction with monthly office visits. Given her long history, she may benefit from [place] program. Ifrah Castillo - 03/14/2016 3:40 PM CDT The patient is asking for a prescription for Phentermine 37.5 mg. 1 QD. She is asking if she could try for 1 month to see if she can lose any weight. Swelling has gone away in ankles sicne starting HCTZ/Triam. She is currently playing softball weekly and riding horses again and weight is still not going down. Current weight from home digital scale is 205.6. documented in this encounter Plan of Treatment Upcoming Encounters Date Type Specialty Care Team Description 05/05/2022 Appointment Chemo Therapy/Infusion Services 09/15/2022 Telemedicine Gastroenterology Eusebio Haines MD [address] [place], [place] [address] (Wo rk) documented as of this encounter Visit Diagnoses Not on filedocumented in this encounter Care Teams Consumer Banker Relationship Specialty Start Date End Date Kinga Pickett APRN, SIERRA PCP - General 03/15/15 07/04/16 [address] [place] [address] documented as of this encounter
--- OUTSIDE RECORDS SUMMARY | 2022-03-20 16:15 | XMS_ITS | Encounter Summary ---
:1975 Author Organization [employer] Address [address] [place] [address] Care Team Providers Name Role Phone Kinga Pickett APRN, CNP Primary Care Provider [phone] Reason for Visit Reason Onset Date Comments Refill 03/16/2016 Encounter Details Date Type Department Care Team Description 03/16/2016 Telephone [facility] Sheeba Roca, RUDY, Refill [address] [facility] [place] [address] [phone] [place], [place] [address] (Wo rk) Social History [...] at Date Recorded Female 05/09/2021 7:19 PM VERIFIER OPERATOR documented as of this encounter Nursing Notes July Dubose LPN - 03/16/2016 2:52 PM CDT vm left for [facility] pharmacy regarding denial Dixie Daniels MD - 03/16/2016 12:25 PM CDT Declined.Pt needs evaluation.Unable to prescribe as its not on med list.Thanks Alejandrina Montana LPN - 03/16/2016 11:08 AM CDT Pt's pharmacy [facility] [place] requesting a refill of pt's ativan 0.5mg Take 1 tablet po every 6 hours PRN Anxiety. I put the request in your inbox. I do not see this medication on current active medication list. Pt has taken in the past. Please see medication history. Please advise. Routing for control officer provider for Castillo. documented in this encounter Plan of Treatment Upcoming Encounters Date Type Specialty Care Team Description 05/05/2022 Appointment Chemo Therapy/Infusion Services 09/15/2022 Telemedicine Gastroenterology Eusebio Haines MD [address] [place] [address] (Wo rk) documented as of this encounter Visit Diagnoses Not on filedocumented in this encounter Care Teams Bank Representative Relationship Specialty Start Date End Date Kinga Pickett, FAST FOOD FRY COOK, BIOTECHNICIAN PCP - General 03/15/15 07/04/16 [address] [place], [place] [id number] documented as of this encounter
--- OUTSIDE RECORDS SUMMARY | 2022-03-20 16:15 | XMS_ITS | Encounter Summary ---
:1975 Author Organization [facility] Address [address], [place] [address] Care Team Providers Name Role Phone Kinga Pickett APRN, CNP Primary Care Provider [phone] Encounter Details Date Type Department Care Team Description 09/14/2015 Notes/Orders [facility] [address] Rizo MD [facility]astroenterology [address] [facility] [address] 

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
--- OUTSIDE RECORDS SUMMARY | 2022-03-20 16:15 | XMS_ITS | Encounter Summary ---
:1975 Author Organization [employer] Address [address], [place] [address] Care Team Providers Name Role Phone Kinga Pickett APRN, SIERRA Primary Care Provider [phone] Reason for Visit Reason Comments Annual Exam Encounter Details Date Type Department Care Team Description 07/13/2015 Office Visit [facility] Contact Niesha Roque Myopia, bilateral Lens [address] [facility] (Primary Dx) [address] [place], [place] [phone] [place] [address] Social History Tobacco Use Types Packs/Day Years Used Date Smoking Tobacco: Never Assessed Sex Assigned at Date Recorded Female 05/09/2021 7:19 PM SUBSTATION OPERATOR APPRENTICE documented as of this encounter Procedure Notes Lucero Roque - 07/13/2015 11:02 AM CST Final Contact Lens Rx Brand Base Curve Diameter Sphere Lens Addl. Specs Right proclear 8.2 14.2 -8.00 Daily Wear dist Left proclear 8.2 14.2 -8.00 Daily Wear dist Expiration Date: 07/13/2017 Replacement: Monthly Solutions: [employer] Wearing Schedule: Daily wear TATION OPERATOR APPRENTICE documented in this encounter Plan of Treatment Upcoming Encounters Date Type Specialty Care Team Description 05/05/2022 Appointment Chemo Therapy/Infusion Services 09/15/2022 Telemedicine Gastroenterology Eusebio Haines MD [address] [place], [place] [address] (Wo rk) documented as of this encounter Visit Diagnoses Diagnosis Myopia, bilateral - Primary Myopia documented in this encounter Care Teams Manager Exchange Relationship Specialty Start Date End Date Kinga Pickett, CLEANER AND POLISHER, MIDWIFE PRACTITIONER PCP - General 03/15/15 07/04/16 [address] [place], [place] [phone] documented as of this encounter
--- OUTSIDE RECORDS SUMMARY | 2022-03-20 16:15 | XMS_ITS | Encounter Summary ---
:1975 Author Organization [employer] Address [address] [place] [address] Care Team Providers Name Role Phone Kinga Pickett APRN, CNP Primary Care Provider [phone] Reason for Visit Reason Comments WEIGHT GAIN Encounter Details Date Type Department Care Team Description 02/05/2016 Office Visit [facility] Chandrika Wiggins Essent ial hypertension (Primary Dx); Medicine [facility] Obesity (BMI 30-39.9); [address] Malaise a nd fatigue; [address] Edema of extremities [place], [place] [address] [place], [place] [phone] Social History Tobacco Use Types Packs/Day Years Used Date Smoking Tobacco: Never Assessed Sex Assigned at Date Recorded Female 05/09/2021 7:19 PM DRYWALL SANDER documented as of this encounter Last Filed Vital Signs Vital Sign Reading Time Taken Comments Blood Pressure 134/86 02/05/2016 10:03 AM CDT Pulse 84 02/05/2016 10:03 AM CDT Temperature - - Respiratory Rate - - Oxygen Saturation - - Inhaled Oxygen Concentration - - Weight 91.6 kg (202 lb) 02/05/2016 10:03 AM CDT Height 168.9 cm (5' 6.5) 02/05/2016 10:03 AM CDT Body Mass Index 32.12 02/05/2016 10:03 AM CDT documented in this encounter Progress Notes Chandrika Wiggins, DEMAND MANAGER, SCHOOL COUNSELLOR - 02/05/2016 10:58 AM CDT SUBJECTIVE: HPI/ROS: 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 [place] to [place]. Last year lost a lot of weight going through divorce via smoking, caffienated drinks, and Sudafed. Quit caffeinated drinks and Sudafed in January. Quit smoking March. Kept weight off until 09/01/2015 colonoscopy, and thinks 12 days later had started gaining wt. Was then put on prednisone for a month. Started amitriptyline for migraine prevention 2 months ago approx, and this has worked well. In the midst of all this, pt has hypertension and was treated with triamterene/HCTZ 37.5/25 mg until11/17/15 when she wondered if she would be able to cut back on the triamterene and just take the hydrochlorothiazide. By 01/17/16 she was taking 50 mg hydrochlorothiazide daily in attempt to control swelling. Her PCP had her temporarily stop hydrochlorothiazide and start furosemide and potassium, which she reports has made no improvement. At this point, she is frustrated with weight gain and swelling, also feeling tired and sluggish. By end of day, ankles and feet are swollen and tight feeling. Pt reports watching salt intake, drinking more water, elevating feet in bed at night and wearing compression stockings daily with minimal improvement. Currently with BF who is focused on health, exercise. They eat a low carb, high F/V/ protein diet, rare junk food, enjoy long bike rides, and she is planning to joint a kickball team this fall. No activity intolerance, chest pain, or dyspnea. No binging or purging. No LE erythema or calf tenderness, no vein bulge or tenderness. Says she is not depressed. Current medications, allergies, medical problems, family and social histories reviewed and updated as appropriate in EMR. OBJECTIVE: VS: BP 134/86 mmHg Pulse 84 Ht 5' 6.5 (1.689 m) Wt 202 lb (91.627 kg) BMI 32.12 kg/m2 Gen: Alert, Oriented, NAD Eyes: Nl external appearance, PERRL, full EOM. Throat: MMM, no lesions, erythema, or exudate. CV: S1, S2, RRR. Peripheral pulses equal. +1 right, +1.5 left pretibial and post-tibialis edema. Resp: Nl effort. Lungs CTA A/P Abd: BS +. Soft, NT. No guarding or mass. Skin: No rash or diaphoresis MS: Appropriate gait. CANDELARIA well. Back NT. Neuro: Facies symmetric. Nl coord. Light touch sensation intact. No tremor. Psych: Nl affect, appropriate grooming ASSESSMENT/PLAN: 1. Essential hypertension (HRC) 2. Obesity (BMI 30-39.9) (HRC) 3. Malaise and fatigue 4. Edema of extremities The swelling itself may improve by changing from hydrochlorothiazide back to triamterene-hydrochlorothiazide, and this was changed. My impression is the weight gain is multifactorial. She has a history of body weight around 200 lb, and we talked about neurotransmitters in the body that can make maintenance of weight loss very challenging. She also has a history of prescription and self-medication for weight loss, which can cause weight fluctuation with abrupt withdrawal. She quit smoking less than a year ago. The prednisone use for a month may have slowed her metabolism. Amitriptyline has been reported to cause both wt loss and wt gain. It has been helpful, though, so would continue at this time. We also briefly discussed actually increasing it to address any depression she might have, but ultimately decided against this because she is having low energy and fatigue, which would be likely to worsen with increase in amitriptyline. She also really doesn't think she is depressed. Overall, at this point in time she sounds like she is living a very healthy lifestyle (especially compared to past) and I reminded her this is still very beneficial even if she is not seeing wt loss. Discussed concept of Health At Every Size. She was also enc to set up a nutrition consult to focus on m aintaining a healthy lifestyle and avoiding rapid wt loss and wt gain. Her PCP previously ordered electrolyte, TSH, hgb testing, and she was enc to complete these today, along with a Vit D level. Follow up with me or PCP in 2 wks to recheck wt, swelling, electrolytes documented in this encounter Plan of Treatment Upcoming Encounters Date Type Specialty Care Team Description 05/05/2022 Appointment Chemo Therapy/Infusion Services 09/15/2022 Telemedicine Gastroenterology Eusebio Haines MD [address] [place] [address] (Wo rk) documented as of this encounter Visit Diagnoses Diagnosis Essential hypertension (HRC) - Primary Unspecified essential hypertension Obesity (BMI 30-39.9) (HRC) Obesity, unspecified Malaise and fatigue Other malaise and fatigue Edema of extremities Edema documented in this encounter Care Teams Pet Supplies Salesperson Relationship Specialty Start Date End Date Kinga Pickett APRN, SCHOOL COUNSELLOR PCP - General 03/15/15 07/04/16 [address] [place], [place] [address] documented as of this encounter
--- OUTSIDE RECORDS SUMMARY | 2022-03-20 16:15 | XMS_ITS | Encounter Summary ---
:1975 Author Organization [employer] Address [address] [place] [address] Care Team Providers Name Role Phone Kinga Pickett APRN, CNP Primary Care Provider [phone] Encounter Details Date Type Department Care Team Description 03/31/2016 Notes/Orders Lavon Nolasco gain Obstetrics/Gynecolog y MD Vikash ([facility] Dx) [facility] [address] [facility] [address] [place] [address] [place], [place] [phone] Social History Tobacco Use Types Packs/Day Years [...] at Date Recorded Female 05/09/2021 7:19 PM GARDE MANGER documented as of this encounter Plan of Treatment Upcoming Encounters Date Type Specialty Care Team Description 05/05/2022 Appointment Chemo Therapy/Infusion Services 09/15/2022 Telemedicine Gastroenterology Eusebio Haines MD [address] [place] [address] (Wo rk) documented as of this encounter Results (ABNORMAL) Testosterone free total females and children (03/31/2016 4:38 PM CDT) athologist Signature Testosterone 29 9 - 55 PN SOFT Female or ng/dL Children Comment: Total Testosterone, Females 18 years and older Premenopausal ??9-55 ng/dL Postmenopausal 5-32 ng/dL REFERENCE INTERVAL: Testosterone, LC-MS/ MS Access complete set of age- and/or gende r-specific reference intervals for this test in the [employer] Test Directory ([facility]). Test developed and characteristics deter mined by [facility]. See Compliance Statement B : [facility] Testosterone Free Female and Child 1.2 (L) [...] reference intervals for this test in the [employer] Test Directory ([facility]). Test developed and characteristics deter mined by [facility]. See Compliance Statement B : [facility] Performed by [facility], [address] [place] [address] www.[facility], Darrell Dee MD - Lab. Director Sex Hormone Binding Globulin 213 (H) 30 - 135 nmol/L PN SOFT Comment: REFERENCE INTERVAL: Sex Hormone Binding Globulin Access complete set of age- and/or gende r-specific reference intervals for this test in the [employer] Test Directory ([facility]). Specimen Anatomical Collection Method Collection Time Receive d Time (Source) Location / / Volume Laterality 03/31/2016 4:38 PM 6 6:51 CDT PM CDT Narrative PN SOFT - 04/04/2016 2:54 PM CDT Performed at [facility] [address] [place] [address] CLIA number [id number] Lavon Song MD LAB_1 Performing Organization Address [facility] Code Phon e Number PN SOFT [address] [place] [address] Hemoglobin A1C [A1C] (03/31/2016 4:38 PM CDT) athologist Signature HGB A1C 5.1 4.0 - 5.6 % PN SOFT Specimen Anatomical Collection Method Collection Time Receive d Time (Source) Location / / Volume Laterality 03/31/2016 4:38 PM 6 6:44 CDT PM CDT Narrative PN SOFT - 03/31/2016 9:57 PM CDT Performed at [address] [address] CLIA number [id number] Lavon Song MD LAB_1 Performing Organization Address [facility] Phon e Number PN SOFT [address] [place] [address] Glucose (GLUC) (03/31/2016 4:38 PM CDT) athologist Signature Lab Glucose 92 60 - 100 PN SOFT mg/dL Specimen Anatomical Collection Method Collection Time Receive d Time (Source) Location / / Volume Laterality 03/31/2016 4:38 PM 6 7:18 CDT PM CDT Narrative PN SOFT - 03/31/2016 7:33 PM CDT Performed at [address] [address] CLIA number [id number] Lavon Song MD LAB_1 Performing Organization Address [facility] Phon e Number PN SOFT [address] [place] [address] Dehydroepiandrosterone Sulfate [DHEAS] (03/31/2016 4:38 PM CDT) Component Value Ref Test Analysis Performed At [facility] gist Range Method Time Signature Dehydroepiandrosterone 152 45 - 270 PN SOFT Sulfate ug/dL Comment: REFERENCE INTERVAL: DHEAS Access complete set of age- and/or gende r-specific reference intervals for this test in the [facility] Test Directory ([facility]). Performed by [facility], [address] [place] [address] www.[email or web address], Darrell Dee MD - Lab. Director Specimen Anatomical Collection Method Collection Time Receive d Time (Source) Location / / Volume Laterality 03/31/2016 4:38 PM 6 6:17 CDT PM CDT Narrative PN SOFT - 04/02/2016 9:21 PM CDT Performed at [facility] [address] [place] [address] CLIA number [id number] Lavon Song MD LAB_1 Performing Organization Address City/State/ZIP Code Phon e Number PN SOFT [address] [place] [address] Androstenedione [ANDROST] (03/31/2016 4:38 PM CDT) athologist Signature Androstenedione 0.501 0.260 - PN SOFT 2.140 ng/mL Comment: INTERPRETIVE INFORMATION: Androstenedion e, Females 18 years and older Post-menopausal: 0.13-0.82 ng/mL REFERENCE INTERVAL: Androstenedione by T MS Access complete set of age- and/or gende r-specific reference intervals for this test in the [facility] Test Directory ([facility]). Test developed and characteristics deter mined by [facility]. See Compliance Statement B : [facility] Performed by [facility], [address] [place] [address] www.[facility], Darrell Dee MD - Lab. Director Specimen Anatomical Collection Method Collection Time Receive d Time (Source) Location / / Volume Laterality 03/31/2016 4:38 PM 6 6:17 CDT PM CDT Narrative PN SOFT - 04/04/2016 2:00 PM CDT Performed at [facility] [address] [place] [address] CLIA number [id number] Lavon Song MD LAB_1 Performing Organization Address City/State/ZIP Code Phon e Number PN SOFT [address] [place], [place] [phone] documented in this encounter Visit Diagnoses Diagnosis Abnormal weight gain - Primary Abnormal weight gain documented in this encounter Care Teams Regional Sales Coordinator Relationship Specialty Start Date End Date Kinga Pickett APRN, THERAPY TECHNICIAN PCP - General 03/15/15 07/04/16 [address] [place] [address] documented as of this encounter
--- OUTSIDE RECORDS SUMMARY | 2022-03-20 16:15 | XMS_ITS | Encounter Summary ---
:1975 Author Organization [employer] Address [address] [place] [address] Care Team Providers Name Role Phone Kinga Pickett APRN, CNP Primary Care Provider [phone] Reason for Referral Consult/Transfer Care (Routine) - Closed Specialty Diagnoses / Procedures Referred By Contact Refer red To Contact Diagnoses Abnormal weight gain Lavon Song MD [address] [address] Referral ID Status Reason Start Date Expiration Date Visits Requ ested Visits Authorized [id number] Closed 04/04/2016 07/04/2017 1 1 Scheduling Instructions Your provider has recommended an appoint ment with Cindy Duffy. You may call [phone] to schedule your a ppointment. If you do not schedule an appointment within the next 1 to 3 in days, we will call you to help arrange your appointment. We suggest you call [employer] about your coverage and benefits for this appointme nt. Encounter Details Date Type Department Care Team Description 04/04/2016 Notes/Orders Lavon Nolasco weig ht gain Obstetrics/Gynecolog y MD Vikash (Primary Dx) [address] [facility] [address] [address] [facility] [place] [phone] Social History Tobacco Use Types Packs/Day Years [...] at Date Recorded Female 05/09/2021 7:19 PM REPLENISHER documented as of this encounter Plan of Treatment Upcoming Encounters Date Type Specialty Care Team Description 05/05/2022 Appointment Chemo Therapy/Infusion Services 09/15/2022 Telemedicine Gastroenterology Eusebio Haines MD [address] [place], [place] [address] (Wo rk) Scheduled Referrals Name Type Priority Associated Diagnoses Order S chedule Endocrinology Referral Routine Abnormal weight gain Ordere d: 04/04/2016 Consult-Adults documented as of this encounter Visit Diagnoses Diagnosis Abnormal weight gain - Primary documented in this encounter Care Teams Technical Operations Vice President Relationship Specialty Start Date End Date Kinga Pickett, TOW MOTOR MECHANIC, BILINGUAL INTERPRETER PCP - General 03/15/15 07/04/16 [address] [place] [address] documented as of this encounter
--- OUTSIDE RECORDS SUMMARY | 2022-03-20 16:15 | XMS_ITS | Encounter Summary ---
:1975 Author Organization [employer] Address [address] [place] [address] Care Team Providers Name Role Phone Kinga Pickett APRN, CNP Primary Care Provider [phone] Reason for Visit Reason Comments WEIGHT GAIN Consult/Transfer Care (Routine) - Closed Specialty Diagnoses / Procedures Referred By Contact Refer red To Contact Diagnoses Abnormal weight gain Olive Gan MD [address] [place], [place] [address] Referral ID Status Reason Start Date Expiration Date Visits Requ ested Visits Authorized [id number] Closed 04/04/2016 07/04/2017 1 1 Encounter Details Date Type Department Care Team Description 05/29/2016 Initial Consult [facility] [address] normal weight gain (Primary Dx); Endocrinology MD Sergio Morbid obesity due to excess calories (H RC) [address] [facility] [place] [address] [id number] Social History Tobacco Use Types Packs/Day Years [...] at Date Recorded Female 05/09/2021 7:19 PM SHEEP SHEARER documented as of this encounter Last Filed Vital Signs Vital Sign Reading Time Taken Comments Blood Pressure 130/76 05/29/2016 2:14 PM SHEEP SHEARER Pulse 86 05/29/2016 2:14 PM SHEEP SHEARER Temperature - - Respiratory Rate - - Oxygen Saturation - - Inhaled Oxygen Concentration - - Weight 95.7 kg (210 lb 14.4 oz) 05/29/2016 2:14 PM SHEEP SHEARER Height 168.9 cm (5' 6.5) 05/29/2016 2:14 PM SHEEP SHEARER Body Mass Index 33.53 05/29/2016 2:14 PM SHEEP SHEARER documented in this encounter Progress Notes La Mendosa MD - 05/29/2016 5:30 PM CST NAME: IDANIA DUARTE MR#: [id number] CSN: [id number] AUTHENTICATING CLINICIAN: La Mendosa MD CONFIRM #: [id number] LOC: 432 CLINIC PROGRESS NOTE DATE OF VISIT: 05/29/2016 : 1975 CHIEF COMPLAINT: The patient was seen in consultation at the request of Dr. Olive Gan for advice regarding weightgain and obesity. HPI: Idania is a 41-year-old female with history of obesity. The patient has tried multiple diet programs,including Medifast. She took phentermine briefly in 2003. Most recently, she was able to lose quite a bit of weight with a divorce. This occurred in 2014. At that time, she was smoking, drinking energydrinks, and probably drinking too much alcohol. Her lowest weight was approximately 163 pounds. She did quit smoking in March 2015. She then had a colonoscopy done in August 2015 and was subsequently diagnosed with ulcerative colitis. She started noting weight gain and then was put on prednisone for about a month. She took doses up to 40 mg daily. She was having frequent bowel movements and abdominal cramping prior to diagnosis. These got better for a while but now have recurred. The patient is using mesalamine only. Weight has now risen to 210 pounds. The patient reports, if anything, her diet ishealthier. She is eating a lot of veggies. She estimates eating 1000 calories per day but does not track it. Her exercise is currently limited to walking a dog. Labs recently revealed a normal testosterone, androstenedione, DHEA sulfate. Glucose, A1c, TSH, lipid panel were normal in January. Vitamin D was slightly low, and the patient is now taking 2000 units per day. She generally feels achy all overjust with palpation. PAST MEDICAL HISTORY: Ulcerative colitis, hypertension, lower extremity edema, chronic headaches, melanoma in 2008, concussion in 2007. CURRENT MEDICATIONS: Amitriptyline 25 mg as needed, calcium once a day, dicyclomine as needed, mesalamine suppository daily, mesalamine 4.8 g orally (currently not being used), continuous control, triamterene/hydrochlorothiazide 37.5/25 mg. FAMILY HISTORY: Negative for obesity. Mother has high blood pressure. No other known autoimmune disorders. SOCIAL HISTORY: The patient is but now has a new boyfriend. No children. No plans for a . She is not smoking. Four servings of alcohol per week. REVIEW OF SYSTEMS: The patient notes persistent gastrointestinal cramping and frequent bowel movements, fatigue, anxiety. No chest pains or shortness of breath. No weakness, diffuse muscle and joint tenderness to palpation. No polydipsia. No polyuria. Menstrual periods are absent with continuous control. The remainder of a complete review of systems is negative. PHYSICAL EXAM: Blood pressure 130/76, pulse 86, weight 210, height 5 feet 6-1/2 inches, BMI 33.5. GENERAL APPEARANCE: A 41-year-old female in no apparent distress. PSYCHIATRIC: Alert. Normal mood and affect. SKIN: Appears dawn, but otherwise no acanthosis nigricans. No violaceous striae. No terminal hair growth on the face. No acne. EYES: Normal pupils and extraocular movements. ENT: Normal nose and mouth. NECK: The trachea is midline. No thyromegaly, nodules, or tenderness. No supraclavicular fullness. RESPIRATORY: Lungs are clear to auscultation bilaterally, with good effort. CV: S1, S2, with regular rate and rhythm. No murmurs. ABDOMEN: Soft, nondistended, nontender. MUSCULOSKELETAL: Normal gait. No lower extremity edema. NEUROLOGIC: No tremor. DTRs are 2+ and symmetric. ASSESSMENT: 1.Abnormal weight gain. 2.Morbid obesity. PLAN: 1.Obtain a bedtime salivary cortisol, though suspicion for Frandy's syndrome is low. Also obtain PTH, vitamin D, and basic metabolic panel. 2.The patient was counseled regarding healthy diet. She will track calories. She will work toward 150-250 minutes of moderate-intensity exercise per week. 3.We reviewed treatment options for obesity. Due to gastrointestinal symptoms, I did not recommend the use of metformin, A GLP-1 agonist, or Xenical. Start phentermine 37.5 mg in the morning. We reviewed risks for palpitations, insomnia, irritability, and higher blood pressure. 4.We could consider the addition of Topamax by the next visit. 5.Return to clinic in about 3 months. CC: OLIVE GAN MD [address] [place] [address] RMM:MEDQ C: CONFIRM #: [id number] P SHEARER documented in this encounter Plan of Treatment Upcoming Encounters Date Type Specialty Care Team Description 05/05/2022 Appointment Chemo Therapy/Infusion Services 09/15/2022 Telemedicine Gastroenterology Esuebio Haines MD [address] [place], [place] [address] (Wo rk) documented as of this encounter Results Vitamin D (In house) (05/29/2016 3:29 PM SHEEP SHEARER) athologist Signature Vitamin D 25 Oh 62 20 - 80 PN SOFT ng/mL Comment: Deficiency = <20 Adequate ??= 20-29 Preferred = 30-50 Uncertain safety = 51-80 High = >80 Specimen Anatomical Collection Method Collection Time Receive d Time (Source) Location / / Volume Laterality 05/29/2016 3:29 PM 6 7:40 SHEEP SHEARER PM SHEEP SHEARER Narrative PN SOFT - 05/29/2016 9:03 PM SHEEP SHEARER Performed at [facility], [address] [place] [address] CLIA number [id number] .Cortisal Saliva La Mendosa MD LAB_1 Performing Organization Address [facility] Phon e Number PN SOFT [address] [place] [address] BMP - Basic Metabolic Panel (05/29/2016 3:29 PM SHEEP SHEARER) athologist Signature Creatinine Serum 0.70 0.55 - [...] Volume Laterality 05/29/2016 3:29 PM 6 3:29 SHEEP SHEARER PM SHEEP SHEARER Narrative PN SOFT - 05/29/2016 4:02 PM SHEEP SHEARER Performed at [facility], [address] [place] [address] CLIA number [id number] .Cortisal Saliva La Mendosa MD LAB_1 Performing Organization Address [facility] Phon e Number PN SOFT [address] [place] [address] PTH - Parathyroid Hormone Intact (05/29/2016 3:29 PM SHEEP SHEARER) athologist Signature PTH 62 10 - 100 PN SOFT pg/mL Specimen Anatomical Collection Method Collection Time Receive d Time (Source) Location / / Volume Laterality 05/29/2016 3:29 PM 6 6:36 SHEEP SHEARER PM SHEEP SHEARER Narrative PN SOFT - 05/29/2016 7:37 PM SHEEP SHEARER Performed at [facility], [address] [place] [address] CLIA number [id number] .Cortisal Saliva La Mendosa MD LAB_1 Performing Organization Address City/State/ZIP Code Phon e Number PN SOFT [address] [place] [address] Cortisol Saliva (05/29/2016 10:10 AM SHEEP SHEARER) athologist Signature Saliva 1010 pm PN SOFT Collection Time Cortisol Saliva 0.065 ug/dL PN SOFT Comment: INTERPRETIVE INFORMATION: Cortisol, Sali va Effective 07/17/2005 For collection at 2300 hr. the normal co rtisol concentration is less than 0.112 ug/dL. ??Patients with Cushings Syndrome have concentrations of 0.112 ug/dL or greater. ? a.m. ([id number] ) ?p.m. (noon-1800) Males ??2.5-7 years ?? [...] older ??0.149-0.739 ug/dL ?0.022-0.254 ug/dL Performed by [facility], [address] [place] [address] [email or web address], Darrell Dee MD - Lab. Director Specimen Anatomical Collection Method Collection Time Receive d Time (Source) Location / / Volume Laterality 05/29/2016 10:10 05/30/2016 AM SHEEP SHEARER 12:21 PM SHEEP SHEARER Narrative PN SOFT - 06/01/2016 6:31 PM SHEEP SHEARER Performed at [facility] [address] [place] [address] CLIA number [id number] La Mendosa MD LAB_1 Performing Organization Address City/State/ZIP Code Phon e Number PN SOFT [address] [place] [address] [phone] documented in this encounter Visit Diagnoses Diagnosis Abnormal weight gain - Primary Morbid obesity due to excess calories (H RC) Abnormal weight gain Abnormal weight gain documented in this encounter Care Teams Kineseologist Relationship Specialty Start Date End Date Kinga Pickett, AIRCRAFT MAINTENANCE DIRECTOR, SED HIGH SCHOOL TEACHER PCP - General 03/15/15 07/04/16 [address] [place], [place] [address] documented as of this encounter
--- OUTSIDE RECORDS SUMMARY | 2022-03-20 16:15 | XMS_ITS | Encounter Summary ---
:1975 Author Organization [employer] Address [address], [place] [address] Care Team Providers Name Role Phone Kinga Pickett APRN, CNP Primary Care Provider [phone] Reason for Visit Reason Comments Follow-up Encounter Details Date Type Department Care Team Description 10/04/2015 Office Visit Eileen White, Other ul cerative Gastroenterology [facility] GRANT colitis with rectal [address] [address] [address] [place] ([facility]C) [place] [address] [place], [place] (Primary Dx) [phone] (Wo rk) Social History Tobacco Use Types Packs/Day Years Used Date Smoking Tobacco: Never Assessed Sex Assigned at Date Recorded Female 05/09/2021 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 I hope you had all your questions answered and issues addressed.If not please call us at [phone] option 2 or My Chart message me. Here is our plan for today: 1. Prednisone burst and taper to hopefully quickly get your symptoms into remission. Prednisone 10 mg #175.Take with food. 21noy06l, 30 mgx14d, 20 mg x14d, 15 mg x14d, 10 mgx14d, 5 mg x 14d, then dc. You do not have to take the 40mg for 14 days if you are in remission before that. Start the wean when all sx have stopped. If you have no relief at all after 7 days please call - may need to increase. 2. Continue Canasa for now - may try weaning to every other day etc after remission. 3. Lialda 4.8 gm daily starting when you get to 20mg of prednisone. 4. Appt in 6 weeks, labs in 3 months. 5. Take a look at [email or web address], as well as [email or web address] for good information. If your symptoms get worse, or the medication or treatment we discussed doesn't help, please be sureto call or My Chart message me so we can address it. Sincerely, Eileen Bernabe CNP documented in this encounter Progress Notes Eileen Bernabe APRN, CNP - 10/04/2015 10:41 AM CDT Progress Notes signed by Eileen Bernabe APRN, CNP at 10/04/151655 Author: Eileen Bernabe APRN, CNP Service: (none) Author Type: Nurse Practitioner Filed: 10/04/151655 Note Time: 10/04/151436 Status: Signed Head Knitting Machine Fixer: Eileen Bernabe APRN, CNP (Nurse Practitioner) NAME: IGGY DUARTE MR#: [id number] CSN: [id number] AUTHENTICATING CLINICIAN: MICHAEL Martini CONFIRM #: [id number] LOC: 533 CLINIC PROGRESS NOTE DATE OF VISIT: 10/04/2015 : 1975 CHIEF COMPLAINT: Followup for new diagnosis of ulcerative colitis. HPI: I am asked to see Iggy Duarte, a pleasant 40-year-old female, seen today in followup for the above concerns. Iggy began having diarrhea and abdominal pain in 2000, and she has had episodic symptoms ever since. This was diagnosed as irritable bowel syndrome and has been treated with Imodium and Bentyl. When she originally came to gastroenterology she was at max dose of both of these medications but was not having relief of symptoms. She would have rectal bleeding mixed in with the stool and in the water as well as upon wiping, and this had occurred with every defecation over the past couple of months. She had abdominal pain described as cramping and twisting in the right lower quadrant and 3-5 episodes ofmushy, explosive, very urgent stool. She was sent for labs and colonoscopy. Labs revealed an elevated CRP and she has historically had elevations in her white blood cell count. Colonoscopy revealed moderately severe inflammatory changes in the rectum and mild inflammatory changes in the cecum and appendiceal orifice. She was given Canasa suppositories and this has helped, but she does continue to have symptoms. She has continued to take Imodium and Bentyl but has been able to reduce the dosages. Iggy denies nausea, vomiting, fever, chills, night sweats, systemic symptoms, weight loss, fatigue,or melena. She has gained 11 pounds in the past couple of weeks that she thinks is clearly fluid as by the end of the day she is getting a lot of swelling in her ankles and notices puffiness in her face. PAST HEALTH HISTORY: Reviewed. CURRENT PROBLEM LIST: Reviewed. PAST MEDICAL AND SURGICAL HISTORY: Reviewed. CURRENT MEDICATIONS: Reviewed. ALLERGIES/ADVERSE REACTIONS TO MEDICATIONS: Reviewed. OBJECTIVE: Blood pressure 125/74, pulse 89, respirations 16. Not otherwise examined. ASSESSMENT: Ulcerative colitis with rectal bleeding. 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 This is likely ulcerative proctitis with cecal patch as opposed to Crohn's disease, but that is not definitively determined.Due to significant symptoms that continue we will treat her with a prednisone burst and taper, continue Canasa and start Lialda at 4.8 g, to be started when the prednisone wean is at 20 mg. PLAN: 1. Prednisone burst and taper starting at 40 mg and tapering after remission is achieved. 2. Continue Canasa. 3. Lialda 4.8 g, to start when prednisone is at 20 mg. 4. Follow up in 6 weeks. 5. Mesalamine labs in 3 months. 6. Discussion about ulcerative colitis and website for further information given. PATIENT INSTRUCTIONS: Iggy was given a summary of this visit, diagnoses, suggested interventions, orders, and followup. She was encouraged to call or come back in if her symptoms continue or worsen. Thank you for allowing me to participate in the care of your patient. Total time: 30 minutes. Counseling time: 20 minutes. TLB:EAN C: CONFIRM #: [id number] documented in this encounter Plan of Treatment Upcoming Encounters Date Type Specialty Care Team Description 05/05/2022 Appointment Chemo Therapy/Infusion Services 09/15/2022 Telemedicine Gastroenterology Eusebio Haines MD [address] [place], [place] [phone] (Wo rk) documented as of this encounter Visit Diagnoses Diagnosis Other ulcerative colitis with rectal ble eding (HRC) - Primary documented in this encounter Care Teams Consolidation Accountant Relationship Specialty Start Date End Date Kinga Pickett APRN, CONTROL SYSTEMS TECHNICIAN PCP - General 03/15/15 07/04/16 [address] [place], [place] [phone] documented as of this encounter
--- OUTSIDE RECORDS SUMMARY | 2022-03-20 16:16 | XMS_ITS | Encounter Summary ---
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 Rebecca Olivares MD - 03/03/2014 1:19 PM CDT Script sent to pharm. Please notify pt that she should come in for a blood pressure check in March. Myranda Cochran RN - 03/03/2014 10:35 AM CDT DOES NOT MEET REQUIREMENTS FOR REFILL Reason: medication not on active med list Last visit with PCP: 08/25/13 with Munira Combs Requested Prescriptions Pending Prescriptions Disp Refills ??? norethindrone-ethinyl estradiol (NECON 1/35, 28,) 1-35 mg-mcg per tablet 84 tablet 1 Sig: Take 1 tablet by mouth daily (every 24 hours). Myranda Cochran RN - 03/03/2014 10:24 AM CDT From: Idania Duarte To: Munira Combs PA-C Sent: 03/02/2014 10:10 PM CDT Subject: Medication Renewal Request Original authorizing provider: MAVIS Palacio would like a refill of the following medications: norgestimate-ethinyl estradiol (TRINESSA, 28,) 0.18/0.215/0.25 mg-35 mcg (28) tablet [Munira Combs PA-C] Preferred pharmacy: Other - [facility] Comment: Can I go back to taking the Necon 1/35 continousley and stop taking Trinessa. I am working at [employer] again and would like to switch back to Necon continousley instead of the current bc's i havebeen on. Necon is covered by my [employer] insurance. Could you send it to [facility]. Thank You documented in this encounter Miscellaneous Notes Patient Email (Converted) - Gary Christy Provider - 03/04/2014 9:58 AM CDT From User: OMEGA MCCARTHY, your change in your medication has been done and sent to your pharmacy. It is recommended to come in for a Blood Pressure check in March to follow up with a new provider and establish care with them. Both Dr. Idania Andrade and Sheeba Castillo are accepting new patients at this time. Please call us at [phone] to schedule an appointment with one of them. Thank you. S ADVISORY MANAGER Refill (Converted) - Gary Christy Provider - 03/02/2014 10:10 PM CDT Medication Renewal Request From User: Original authorizing provider: MAVIS Palacio would like a refill of the following medications: norgestimate-ethinyl estradiol (TRINESSA, 28,) 0.18/0.215/0.25 mg-35 mcg (28) tablet [Munira Combs PA-C] Preferred pharmacy: Other - [facility] Comment: Can I go back to taking the Necon 1/35 continousley and stop taking Trinessa. I am working at [employer] again and would like to switch back to Necon continousley instead of the current bc's i have been on. Necon is covered by my [employer] insurance. Could you send it to [facility]. Thank You S ADVISORY MANAGER documented in this encounter Plan of Treatment Upcoming Encounters Date Type Specialty Care Team Description 05/05/2022 Appointment Chemo Therapy/Infusion Services 09/15/2022 Telemedicine Gastroenterology Eusebio Haines MD [address] [place] [address] (Wo rk) documented as of this encounter Visit Diagnoses Not on filedocumented in this encounter Care Teams Spinning Lathe Operator Relationship Specialty Start Date End Date Munira Combs PA-C PCP - General 09/25/10 03/14/15 [address] [place] [address] documented as of this encounter
--- OUTSIDE RECORDS SUMMARY | 2022-03-20 16:16 | XMS_ITS | Encounter Summary ---
:1975 Author Organization [employer] Address [address] [address] Care Team Providers Name Role Phone Sherie Baez PA-C Primary Care Provider Reason for Visit Reason Comments Refill Encounter Details Date Type Department Care Team Description 08/07/2013 Refill [facility] Sherie Falcon PA-C Refill [address] [address] [place] [address] [phone] (Wo rk) Social History Tobacco Use Types Packs/Day Years Used Date Smoking Tobacco: Never Assessed Sex Assigned at Date Recorded Female 05/09/2021 7:19 PM BASKET PATCHER documented as of this encounter Nursing Notes Danica Haskins RN - 08/07/2013 10:37 AM CST Renewed medication per medication refill protocol. Requested Prescriptions Signed Prescriptions Disp Refills ??? norgestimate-ethinyl estradiol (TRINESSA, 28,) 0.18/0.215/0.25 mg-35 mcg (28) tablet 28 tablet 0 Sig: Take 1 tablet by mouth daily (every 24 hours). Follow package directions Authorizing Provider: SHERIE BAEZ Ordering User: DANICA HASKINS ET PATCHER Danica Haskins RN - 08/07/2013 10:36 AM BASKET PATCHER From: Iggy Duarte To: Sherie Baez PA-C Sent: 08/07/2013 10:17 AM BASKET PATCHER Subject: Medication Renewal Request Original authorizing provider: MAVIS Palacio would like a refill of the following medications: norgestimate-ethinyl estradiol (TRINESSA, 28,) 0.18/0.215/0.25 mg-35 mcg (28) tablet [Sherie Baez PA-C] Preferred pharmacy: [facility] [address] [place] [address] [facility] Comment: I have requested an appt with dates available from the . I am on my last week of medication and this is the soonest I can get in. I would like to have a 1 month supply sent to [facility] in [facility] if the prescription is approved. Thank You documented in this encounter Miscellaneous Notes Refill (Converted) - Mychart, Generic Provider - 08/07/2013 10:37 AM BASKET PATCHER RE: Medication Renewal Request From User: DANICA HASKINS, Your refill has been sent. ----- Message ----- From: IGGY DUARTE Sent: 08/07/2013 10:17 AM BASKET PATCHER To: Sherie Baez PA-C Subject: Medication Renewal Request Original authorizing provider: MAVIS Palacio would like a refill of the following medications: norgestimate-ethinyl estradiol (TRINESSA, 28,) 0.18/0.215/0.25 mg-35 mcg (28) tablet [Sherie Baez PA-C] Preferred pharmacy: [facility] [address] [place] [address] [facility] Comment: I have requested an appt with dates available from the . I am on my last week of medication and this is the soonest I can get in. I would like to have a 1 month supply sent to [facility] in [facility] if the prescription is approved. Thank You ET PATCHER documented in this encounter Plan of Treatment Upcoming Encounters Date Type Specialty Care Team Description 05/05/2022 Appointment Chemo Therapy/Infusion Services 09/15/2022 Telemedicine Gastroenterology Eusebio Haines MD [address] [place] [address] (Wo rk) documented as of this encounter Visit Diagnoses Not on filedocumented in this encounter Care Teams Boarding Specialist Relationship Specialty Start Date End Date Sherie Baez PA-C PCP - General 09/25/10 03/14/15 [address] [place] [phone] documented as of this encounter
--- OUTSIDE RECORDS SUMMARY | 2022-03-20 16:16 | XMS_ITS | Encounter Summary ---
:1975 Author Organization [employer] Address [address], [place] [address] Care Team Providers Name Role Phone Munira Combs PA-C Primary Care Provider Reason for Visit Reason Comments Annual Exam Encounter Details Date Type Department Care Team Description 08/25/2013 Office Visit [facility] Munira Combs PA-C Annual physical exam (Primary Dx); Medicine [facility] HTN (hypertension); [id number] Irritable bowel syndrome; [place] [address] [place], [place] Screening for other and unsp ecified deficiency anemia; [phone] [id number] Screening cholesterol level; [phone] (Wo rk) Screening for diabetes mellitus Social History Tobacco Use Types Packs/Day Years Used Date Smoking Tobacco: Never Assessed Sex Assigned at Date Recorded Female 05/09/2021 7:19 PM REINFORCED IRONWORKER documented as of this encounter Last Filed Vital Signs Vital Sign Reading Time Taken Comments Blood Pressure 150/82 08/25/2013 1:31 PM REINFORCED IRONWORKER Pulse 98 08/25/2013 1:31 PM REINFORCED IRONWORKER Temperature - - Respiratory Rate - - Oxygen Saturation - - Inhaled Oxygen Concentration - - Weight 88.1 kg (194 lb 4 oz) 08/25/2013 1:31 PM REINFORCED IRONWORKER Height 167.6 cm (5' 6) 08/25/2013 1:31 PM REINFORCED IRONWORKER Body Mass Index 31.35 08/25/2013 1:31 PM REINFORCED IRONWORKER documented in this encounter Patient Instructions Patient InstructionsStronMunira hernandez PA-C - 08/25/2013 1:58 PM CST Please schedule an appointment with our Medication Management Pharmacist, Chandrika Del Real, regarding yourBP in 3 weeks. Chandrika, is a specially trained pharmacist who will work closely with both you and your providers to solve any problems related to your medications and to help you get the best results from taking them. Chandrika will monitor your progress and adjust your medications if necessary to help you achieve your health care goals. There is no charge for the visit. You can schedule theappointment at our front desk monitor or by calling . Chandrika is in clinic on Tuesdays, ,and Fridays. FORCED IRONWORKER documented in this encounter Progress Notes Munira Combs PA-C - 08/25/2013 2:12 PM CST Idania Duarte [id number] 1975 38 y.o..female here for routine physical exam Other concerns: increased anxiety with her job. She is looking to leave. BP has been up, more frequent headaches, palpitations, IBS is worse. SHe was able to lose some weight with diet changes. Patient Active Problem List Diagnosis Date Noted ??? Chronic headaches 08/11/2011 ??? BCC (basal cell carcinoma), leg 08/11/2011 Overview Note: 07/09/2008: left upper thigh ??? HTN (hypertension) 08/11/2011 ??? Concussion 08/11/2011 Overview Note: February 2008, thrown from horse. ??? Obesity 08/11/2011 ??? Tobacco abuse 08/11/2011 ??? Hx of tonsillectomy 08/11/2011 ??? 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 Irritable Bowel Syndrome 11/29/2002 Class: Chronic Past Medical History Diagnosis Date ??? Chronic headaches 08/11/2011 ??? Irritable bowel syndrome 11/29/2002 ??? 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 BCC (basal cell carcinoma), leg 08/11/2011 ??? HTN (hypertension) 08/11/2011 ??? Concussion 08/11/2011 ??? Obesity 08/11/2011 ??? Hx of tonsillectomy 08/11/2011 ??? Clostridium difficile colitis 01/2012 Past Surgical History Procedure Laterality Date ??? Tonsillectomy ??? Cyst removal left wrist OB History Grav Para Term Abortions TAB SAB Ect Mult Living 0 0 0 0 0 0 0 0 0 0 Family History Problem Relation Age of Onset ??? Heart Disease Neg Hx ??? Stroke Neg Hx ??? Cancer, Breast Neg Hx ??? Cancer, Colon Neg Hx ??? DVT/PE Neg Hx ??? Thyroid Disease Neg Hx ??? Diabetes Neg Hx History Social History ??? Marital Status: Spouse Name: N/A Number of Children: 0 ??? 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 Smoking status: Current Some Day Smoker -- 0.25 packs/day for 15 years Types: Cigarettes ??? Smokeless tobacco: Never Used Comment: smokes 2 cigarettes a day ??? Alcohol Use: No Comment: rarely ??? Drug Use: No ??? Sexually Active: Yes -- Male partner(s) Control/ Protection: OCP Other Topics Concern ??? City Water Yes ??? Exercise No ??? Seat Belt Yes ??? Special Diet No ??? Weight Concern Yes Social History Narrative ??? None Outpatient Prescriptions Prior to Visit Medication Sig Dispense Refill ??? amitriptyline (ELAVIL) 25 mg tablet Take 1-2 tablets by mouth nightly. 180 tablet 3 ??? Calcium Carbonate 1,000 mg Tab Take by mouth. ??? dicyclomine (BENTYL) 20 mg tablet Take 1 tablet by mouth 4 times daily as needed. 360 tablet 3 ??? MULTI-VITAMIN ORAL Take 1 tablet by mouth daily (every 24 hours). ??? norgestimate-ethinyl estradiol (TRINESSA, 28,) 0.18/0.215/0.25 mg-35 mcg (28) tablet Take 1 tablet by mouth daily (every 24 hours). Follow package directions 28 tablet 0 ??? triamterene-hydrochlorothiazide (MAXZIDE-25) 37.5-25 mg per tablet Take 1 tablet by mouth daily (every 24 hours). 30 tablet 0 No facility-administered medications prior to visit. No Known Allergies Most Recent Immunizations Administered Date(s) Administered ??? H1N1 Influenza Live Intranasal 04/13/2009 ??? H1N1 Influenza Virus 0.5ml 06/09/2013 ??? Hep B Adult Vaccine (20+ yrs) 20mcg 02/08/2006 ??? Hepatitis B Virus Vacc Recom/Medic Con 08/09/2001 ??? Influenza TIV (36+ mos) 03/10/2011 ??? Influenza TIV 0.5ml (36+ mos) 03/10/2010 ??? Influenza TIV 36+ mos 03/04/2012 ? ? Td Adult (>7 years) 11/30/2003 ??? Tdap (Adacel) 07/04/2010 Patient's last menstrual period was 05/05/2013. Complete ROS negative with any exceptions listed here: N/A OBJECTIVE Vitals: BP 150/82 Pulse 98 Ht 5' 6 (1.676 m) Wt 194 lb 4 oz (88.111 kg) BMI 31.37 kg/m2 LMP 05/05/2013 HEENT: Head is normocephalic. External ears normal, bilaterally. Ear canals patent. TMs non-erythematous, good light-reflex bilaterally. PERRL, bialterally. Conjunctiva clear. Nasal mucosa non-congested. Oropharynx non-erythematous. dentition in good condition. Uvula mid-line. Neck: No lymphadenopathy or thyromegaly. Lungs: clear to ausculatation, bilaterally. Work of breathing normal. Heart: RRR without murmur Abdomen: No masses. Non-tender Extremities: no edema Skin: no obvious rashes or suspicious lesions Psych: well oriented, affect and mood are good Neuro: gait and speech are normal. Breast: No palpable masses or axillary LAD, bilaterally : external anatomy normal. [place] rugated vagina. No cervical lesions. No CMT. No adnexal masses or tenderness Rectal: No external hemorrhoids noted. Diagnosis (ICD9) and Associated Orders ICD-9-CM 1. Annual physical exam V70.0 Vitamin D (In house) 2. HTN (hypertension) 401.9 triamterene-hydrochlorothiazide (MAXZIDE-25) 37.5-25 mg per tablet Creatinine Electrolytes (NA, K, CL, Bicarb) 3. Irritable bowel syndrome 564.1 dicyclomine (BENTYL) 20 mg tablet 4. Screening for other and unspecified deficiency anemia V78.1 Hemoglobin 5. Screening cholesterol level V77.91 Cholesterol Fraction-LDLD If Trig High 6. Screening for diabetes mellitus V77.1 Glucose PLAN: Medication refills given. Add Toprol XL 25 mg for HTN, palpitations and headaches. MTM visit 3 weeks. Pap: up to date Labs: as above Consults requested: derm for yearly skin check. personal hx of skin cancer Immunizations: up to date Counseling provided regarding: Age-appropriate health maintenance items including indications and screening intervals Reviewed BMI and suggested ways to improve this if abnormal or maintain if normal. Reviewed the importance of regular exercise for cardiovascular health and maintenance of weight. Eat a healthy diet with a variety of foods including fruits and vegetables. Encouraged calcium supplementation if necessary. Importance of dental health and regular dental examinations as well as routine eye exams. Orders Placed This Encounter Procedures ??? Glucose ??? Cholesterol Fraction-LDLD If Trig High ??? Vitamin D (In house) ??? Hemoglobin ??? Creatinine ??? Electrolytes (NA, K, CL, Bicarb) Orders Placed This Encounter Medications ??? triamterene-hydrochlorothiazide (MAXZIDE-25) 37.5-25 mg per tablet Sig: Take 1 tablet by mouth daily (every 24 hours). Dispense: 90 tablet Refill: 04 ??? norgestimate-ethinyl estradiol (TRINESSA, 28,) 0.18/0.215/0.25 mg-35 mcg (28) tablet Sig: Take 1 tablet by mouth daily (every 24 hours). Follow package directions Dispense: 84 tablet Refill: 04 ??? dicyclomine (BENTYL) 20 mg tablet Sig: Take 1 tablet by mouth 4 times daily as needed. Dispense: 360 tablet Refill: 3 ??? amitriptyline (ELAVIL) 25 mg tablet Sig: Take 1-2 tablets by mouth nightly. Dispense: 180 tablet Refill: 3 ??? DISCONTD: metoprolol succinate (TOPROL-XL) 25 mg 24 hr tablet Sig: Take 1 tablet by mouth daily (every 24 hours). Dispense: 30 tablet Refill: 3 ??? metoprolol succinate (TOPROL-XL) 25 mg 24 hr tablet Sig: Take 1 tablet by mouth daily (every 24 hours). Dispense: 30 tablet Refill: 00 Patient Instructions Please schedule an appointment with our Medication Management Pharmacist, Chandrika Del Real, regarding yourBP in 3 weeks. Chandrika, is a specially trained pharmacist who will work closely with both you and your providers to solve any problems related to your medications and to help you get the best results from taking them. Chandrika will monitor your progress and adjust your medications if necessary to help you achieve your health care goals. There is no charge for the visit. You can schedule theappointment at our front desk monitor or by calling . Chandrika is in clinic on Tuesdays, ,and Fridays. FORCED IRONWORKER documented in this encounter Plan of Treatment Upcoming Encounters Date Type Specialty Care Team Description 05/05/2022 Appointment Chemo Therapy/Infusion Services 09/15/2022 Telemedicine Gastroenterology Eusebio Haines MD [address] [address] (Wo rk) documented as of this encounter Visit Diagnoses Diagnosis Annual physical exam - Primary Routine general medical examination at a health care facility HTN (hypertension) (HRC) Unspecified essential hypertension Irritable bowel syndrome Screening for other and unspecified defi ciency anemia Screening cholesterol level Screening for lipoid disorders Screening for diabetes mellitus documented in this encounter Care Teams In Processing Instructor Relationship Specialty Start Date End Date Munira Combs PA-C PCP - General 09/25/10 03/14/15 [address] [place] [address] documented as of this encounter
--- OUTSIDE RECORDS SUMMARY | 2022-03-20 16:16 | XMS_ITS | Encounter Summary ---
:1975 Author Organization [email or web address] Address [address] [place] [address] Care Team Providers Name Role Phone Munira Combs PA-C Primary Care Provider Encounter Details Date Type Department Care Team Description 09/30/2014 Lab Visit [facility] [address] Well adult exam; [address] 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 TSH AND FREE T4 Routine 09/30/2014 9:36 AM Well adult exam Res ults for this (FRT4 IF TSH ABNORM) CDT procedu re are in the results section. LIPID PANEL AND Routine 09/30/2014 9:36 AM Well adult exam Res ults for this DIRECT LDL(IF CDT procedure are in NEEDED) the results section. CREATININE / GFR Routine 09/30/2014 9:36 AM Essential Resul ts for this CDT hypertension procedure are i n the results section. COMPLETE BLOOD Routine 09/30/2014 9:36 AM Well adult exam Resu lts for this COUNT-NO DIFF CDT procedure are in the results section. ELECTROLYTE PANEL Routine 09/30/2014 9:36 AM Essential Resu lts for this CDT hypertension procedure are i n the results section. documented in this encounter Results Creatinine / GFR (09/30/2014 9:36 AM CDT) athologist Signature Creatinine 0.7 0.4 - 1.3 HP CONVERSION Serum mg/dL Est GFR >60 >60 HP CONVERSION [...] Time (Source) Location / / Volume Laterality 09/30/2014 9:36 AM 5 9:36 CDT AM CDT Narrative HP CONVERSION - 09/30/2014 12:16 PM CDT Performed at [facility], [address] [place] [address] Kinga Pickett APRN, CNP LAB_1 Performing Organization Address City/State/ZIP Code Phon e Number HP CONVERSION Electrolyte Panel (09/30/2014 9:36 AM CDT) athologist Signature Sodium 138 137 - 147 HP CONVERSION mEq/L Potassium 3.6 3.5 - 5.2 HP CONVERSION mEq/L Chloride 103 98 - 110 HP CONVERSION mEq/L Bicarbonate 28 23 - 33 HP CONVERSION mmol/L Specimen Anatomical Collection Method Collection Time Receive d Time (Source) Location / / Volume Laterality 09/30/2014 9:36 AM 5 9:36 CDT AM CDT Narrative HP CONVERSION - 09/30/2014 12:16 PM CDT Performed at [facility], [address] [place] [address] Kinga Pickett APRN, CNP LAB_1 Performing Organization Address [facility] Phon e Number HP CONVERSION (ABNORMAL) Complete Blood Count-No Diff (09/30/2014 9:36 AM CDT) [facility] Method Time Signature White Blood Cell 12.2 (H) 3.8 - HP CONVERSION Count 11.0 k/cmm Red Blood Cell 4.51 3.70 - HP CONVERSION Count 5.20 m/cmm Hemoglobin 14.2 11.8 - HP CONVERSION 15.5 g/dL Hematocrit 41.8 35.0 - HP CONVERSION 46.0 % Mean Corpuscular 92.7 80.0 - HP CONVERSION Volume 100.0 fL RDW 12.2 11.0 - HP CONVERSION 15.0 % Platelet Count 366 140 - 450 HP CONVERSION k/cmm Specimen Anatomical Collection Method Collection Time Receive d Time (Source) Location / / Volume Laterality 09/30/2014 9:36 AM 5 9:36 CDT AM CDT Narrative HP CONVERSION - 09/30/2014 9:45 AM CDT Performed at [facility], [address] [place] [address] Kinga Pickett APRN, CNP LAB_1 Performing Organization Address [facility] Phon e Number HP CONVERSION GLUCOSE (09/30/2014 9:36 AM CDT) athologist Signature Lab Glucose 94 60 - 100 HP CONVERSION mg/dL Specimen Anatomical Collection Method Collection Time Receive d Time (Source) Location / / Volume Laterality 09/30/2014 9:36 AM 5 9:36 CDT AM CDT Narrative HP CONVERSION - 09/30/2014 12:16 PM CDT Performed at [facility], [address] [place] [address] Kinga Pickett APRN, CNP LAB_1 Performing Organization Address [facility] Phon e Number HP CONVERSION (ABNORMAL) Lipid Panel and Direct LDL(If Needed) (09/30/2014 9:36 AM CDT) Patholo gist Method Time Signature Cholesterol 182 0 - 200 HP CONVERSION mg/dL Triglycerides 207 (H) 0 - 149 HP CONVERSION mg/dL HDL Cholesterol 49 >39 mg/dL HP CONVERSION Cholesterol/HDL 3.7 HP CONVERSION Ratio Screen LDL Calculated 92 19 - 130 HP CONVERSION mg/dL Length Of Fast 12 HP CONVERSION Specimen Anatomical Collection Method Collection Time Receive d Time (Source) Location / / Volume Laterality 09/30/2014 9:36 AM 5 9:36 CDT AM CDT Narrative HP CONVERSION - 09/30/2014 12:16 PM CDT Performed at [facility], [address] [place] [address] Kinga Pickett APRN, CNP LAB_1 Performing Organization Address [facility] Phon e Number HP CONVERSION TSH AND FREE T4 (FRT4 IF TSH ABNORM) (09/30/2014 9:36 AM CDT) athologist Signature Thyroid 1.96 0.20 - HP CONVERSION Stimulating 4.50 mIU/L Hormone Specimen Anatomical Collection Method Collection Time Receive d Time (Source) Location / / Volume Laterality 09/30/2014 9:36 AM 5 CDT 11:21 AM CDT Narrative HP CONVERSION - 09/30/2014 11:54 AM CDT Performed at [facility], [address] [place] [address] Kinga Pickett APRN, CNP LAB_1 Performing Organization Address [facility] Phon e Number HP CONVERSION documented in this encounter Visit Diagnoses Diagnosis Well adult exam Routine general medical examination at a health care facility Essential hypertension (HRC) Unspecified essential hypertension documented in this encounter Care Teams Bread Icer Relationship Specialty Start Date End Date Munira Combs PA-C PCP - General 09/25/10 03/14/15 [address] [place] [address] documented as of this encounter
--- OUTSIDE RECORDS SUMMARY | 2022-03-20 16:16 | XMS_ITS | Encounter Summary ---
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 We had discussed electrodesiccation and curettage versus Efudex or Aldara cream. I assume she has decided to use Efudex cream. She needs to apply this to the area twice daily for 6 weeks and then stop. I do expect it to be red and inflamed. After area heals it should be smooth and pink. If she has any doubts about the healing she should come in for recheck. If the area appears fully healed then would see her at her annual skin checks. Berkley Scott, RN - 11/03/2014 2:33 PM CDT LV 10/07/14 FV 11/25/14 RN unable to refill medication per protocol. Do you wish to refill fluorouracil 5% cream for actinickeratosis? Thank you. Idania Mir - 11/03/2014 1:03 PM CDT Last visit: 10/07/14 Future visit: 11/25/14 documented in this encounter Plan of Treatment Upcoming Encounters Date Type Specialty Care Team Description 05/05/2022 Appointment Chemo Therapy/Infusion Services 09/15/2022 Telemedicine Gastroenterology Eusebio Haines MD [address] [address] (Wo rk) documented as of this encounter Visit Diagnoses Not on filedocumented in this encounter Care Teams Mold Maker Helper Relationship Specialty Start Date End Date Munira Combs PA-C PCP - General 09/25/10 03/14/15 [address] [place] [id number] documented as of this encounter
--- OUTSIDE RECORDS SUMMARY | 2022-03-20 16:16 | XMS_ITS | Encounter Summary ---
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 Leave the original bandage/dressing in place for 24 to 48 hours. If you develop bleeding from the site, apply firm pressure directly over the bandage, using the heelof your hand, for [address] bandage on top of the first one - don???t keep removing and replacing dressings. NO PEEKING! Notify us if the bleeding still does not stop. How do I change the bandage on my skin biopsy/surgery site? Clean the area once a day with warm soap and water. Gently pat dry the area. If you have stitches, use a cotton-tipped applicator to gently remove any crust or scab that has formed. After the area has been cleaned and is dry, apply a small amount of petroleum jelly or Aquaphor healing ointment and apply a new bandage. We prefer that you do not use an antibacterial ointment (i.e. bacitracin, Neosporin) as many people develop a hypersensitivity including a rash and even blistering related to these. Is it okay to shower after having a skin biopsy/surgery? Showering is okay, but please do not soak in a bathtub, hot tub, or pool. This will slow the healingprocess and may create infection. When can I stop bandaging my skin biopsy/surgery site? Continue the wound care process until the area is healed or until stitches are removed. Complete healing usually takes 2-4 weeks. Wounds heal best when kept moist, try not to let the area dry out. Letting them open to air, drying out, and having a scab form actually causes wounds to take longer to heal. If your skin is getting sensitive to the bandage, use gauze and paper tape. Can I exercise after having a skin biopsy/surgery? Avoid exercising for 2 days and if you have stitches, you will want to restrict your physical activity to avoid strenuous movements that will cause stretching and pulling of the skin for 2 weeks. What signs or symptoms should I call the dermatology department about? Infection after a biopsy or surgery is not likely, but can occur. Mild amounts of redness, bruising,swelling, discomfort and a clear to yellowish to blood- tinged discharge are normal. Signs of Infection include: fever, increasing pain, blood blister, drainage of pus, and extreme heatfrom the site. Please call the clinic at [phone] if you experience any of these symptoms. When should my sutures be removed? Please schedule your nurse appointment at the service desk lead for the suture removal within 7-14 days. When will I receive my skin biopsy results? Your skin biopsy specimen will be sent to our laboratory for processing. It will then be interpretedby one of our board-certified dermatopathologists, Dr. Lavon Sal, Dr. Sandra Palm, and Dr. Carter Alvarez. The dermatopathologists will write their findings in a pathology report. Your provider will then contact you with the results of this pathology report when it is available. Typically you willbe contacted 7 to 14 days after your biopsy or procedure. Our pathology services will be listed separately on your bill. If you have further questions about the biopsy process or if you have not received your biopsy results within 2 weeks, please call us at [phone]. documented in this encounter Progress Notes Rylee Schwartz V, WAX ENGRAVER, BARREL CUTTER - 10/22/2014 12:08 PM CDT HPI: Idania Duarte is a 39 y.o. female here for full body skin check status post basal cell of theleft lateral thigh and severely atypical compound mole on the mid abdomen. Also has concern about a new lesion on the left thigh. -Last seen: 11/14/[address] Rufina Morris for a full skin exam. Dr. Huff advised watching mole on her left breast. Patient states that has been stable. Noted a new erythematous lesion adjacent to the site of her basal cell cancer on the left lateral thigh. Redness has been present for a few months and she became concerned. No bleeding or itching. No other issues. Skin/Sun/Radiation history: Extensive sun exposure with some indoor tanning without benefit of sunscreen Family history: States brother had a melanoma on his leg. PMH: Past Medical History Diagnosis Date ??? Chronic headaches 08/11/2011 ??? Irritable bowel syndrome 11/29/2002 ??? 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 BCC (basal cell carcinoma), leg ([facility]) 08/11/2011 ??? HTN (hypertension) ([facility]) 08/11/2011 ??? Concussion 08/11/2011 ??? Obesity ([facility]) 08/11/2011 ??? Hx of tonsillectomy 08/11/2011 ??? Clostridium difficile colitis 01/2012 Medications: Current Outpatient Prescriptions on File Prior to Visit Medication Sig Dispense Refill ??? amitriptyline (ELAVIL) 25 mg tablet Take 1-2 tablets by mouth nightly. 180 tablet 4 ??? Calcium Carbonate 1,000 mg Tab Take by mouth. ??? dicyclomine (BENTYL) 20 mg tablet Take 1 tablet by mouth 4 times daily as needed. 360 tablet 3 ??? MULTI-VITAMIN ORAL Take 1 tablet by mouth daily (every 24 hours). ??? norethindrone-ethinyl estradiol (NECON , ,) 1-35 mg-mcg per tablet Take 1 tablet by mouth daily (every 24 hours). Patient takes continously 112 tablet 4 ??? triamterene-hydrochlorothiazide (MAXZIDE-25) 37.5-25 mg per tablet Take 1 tablet by mouth daily (every 24 hours). 90 tablet 4 No current facility-administered medications on file prior to visit. Allergies: No Known Allergies SH: History Social History ??? Marital Status: Spouse Name: N/A Number of Children: 0 ??? 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 [...] ??? Weight Concern Yes Social History Narrative ROS: See HPI for pertinent positives. Physical Exam: General: Well appearing female in no acute distress, alert and oriented x 3, normal affect, ambulates without difficulty. Skin: Womack type III. Severe sun damage in a photo-distributed pattern. Afocused skin exam was performed of the Face, scalp, neck, chest ,abdomen, back, bilateral upper and lower extremities, bilateral palms and soles, buttocks, supra-pubic area, eyelids lips digits and nails is performed. Notable findings include: -Well-healed scar left lateral thigh from previous basal cell removal -Area of diffuse erythema and scale 6 x 6 mm in size adjacent to basal cell scar. -Caf?? au lait spot right upper back 1 x 3 cm -Brown speckled nevus right mid back 2.5x1 cm -Brown macule in tattoo on back 8 x 6 mm, pigmented somewhat obscured by tattoo ink -Left inferior breast 4 x 7 mm brown macule with central dark pigmentation that appear symmetric. -Well-healed scar upper abdomen under sternum at site of severely atypical mole removal -Scattered light dawn macules on all sun exposed surfaces that are solar lentigines and sun damaged skin -Scattered uniformly colored, bland, symmetrical brown macules and papules on trunk, arms, and legs. Hair appears normal. Dermoscopy-assisted exam WNL except as noted above The rest of the complete skin examination is within normal limits. Assessment: 1. Status post basal cell cancers of the skin. 2. History severely atypical nevus. 3. New erythematous papule left lateral thigh near site of basal cell removal. 4. Stable nevus left inferior breast. 5. Solar lentigines. 6. Sun damaged skin. 7. Remainder benign appearing nevi. Plan: 1. Persistent area of erythema left lateral thigh near basal cell scar . Procedure: Shave removal Location: Left lateral thigh Reason: Suspicion for malignancy Treatment options were discussed including removal and observation. Patient elected to have shave removal. Risks and benefits of procedure were discussed including, but not limited to, bruising, bleeding, scar, discomfort, infection, incomplete removal , or requirement for further therapeutic intervention. The patient signed consent to proceed. The area was sterilely prepped, and anesthetized with 1%lidocaine with epinephrine. A Ana-type blade was used to remove the lesion. Hemostasis achievedand site covered with vaseline and a local dressing. Patient was given oral and written wound care instructions. Sent for pathology. We will call when the results are available and discuss further treatment if required. Patient tolerated the procedure well without complications Is leaving a message ok: YES # [phone] message okay 2. Moles to watch. Mole left inferior breast appears stable per patient history and last exam. Discussed close observation versus removal. Patient feels she can observe. Mole in tattoo appears stable with last exam is partially obscured by ink. Patient feels this is stable and can monitor closely. 3. Solar lentigines and sun damaged skin. Advised daily sunscreen and sun protection. 4. Benign-appearing moles Patient reassured. No lesions worrisome for melanoma observed on exam today. Reviewed and provided ABCDE of melanoma recognition. Suggested cell phone photo for monitoring. 5. Advised annual skin checks or sooner if lesions of concern. follow up as needed Sol Paulino LPN - 10/14/2014 10:09 AM CDT Quick Note: pt called back. Discussed her options with her. 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 Is leaning more towards the ED \T\amp; C, but will call us back in a few days with her decision. Rylee Schwartz APRN, CNP - 10/09/2014 12:45 PM CDT Quick Note: Called patient on her cell and left message that the lesion removed on her leg was the BCC we had discussed at her visit. Since it is a superficial pattern, it can be removed by me in clinic with E,D \T\amp; C or she can treat with Aldara or Efudex cream to the area for several weeks. Please contact patient to confirm she got my message and which treatment she prefers. documented in this encounter Miscellaneous Notes Miscellaneous - 08/03/2016 9:05 AM CSTNotes Recorded by Lou Rogers RN on 10/15/2014 at 8:49 AMPt called and scheduled ED\T\C for 11/25 at 8:15.------Notes Recorded by Sol Paulino LPN on 10/14/2014 at 10:09 AMpt called back. Discussed her options with her. 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 Is leaning more towards the ED \T\ C, but will call us back in a few days with her decision.------Notes Recorded by Chandrika Martinez MA on 10/13/2014 at 10:22 AMleft message to call back and discuss results and treatment options------Notes Recorded by Rylee Taylor APRN, BARREL CUTTER on 10/09/2014 at 12:45 PM Called patient on her cell and left message that the lesion removed on her leg was the BCC we had discussed at her visit. Since it is a superficial pattern, it can be removed by me in clinic with E,D \T\ C or she can treat with Aldara or Efudex cream to the area for several weeks. Please contact patient to confirm she got my message and which treatment she prefers. FIRST ASSIST documented in this encounter Plan of Treatment Upcoming Encounters Date Type Specialty Care Team Description 05/05/2022 Appointment Chemo Therapy/Infusion Services 09/15/2022 Telemedicine Gastroenterology Eusebio Haines MD [address] [place] [address] (Wo rk) documented as of this encounter Procedures Procedure Name Priority Date/Time Associated Diagnosis Comme nts SURGICAL DONAL HURTADO Routine 10/07/2014 7:00 AM Re sults for this NICOET CDT procedure are i n the results section. documented in this encounter Results Pathology Report (10/07/2014 7:00 AM CDT) Component Value Ref Test Analysis Performed At [facility] gist Range Method Time Signature Path: Performed at [facility] [place] [address] HP CONVERSION ? FINAL DERMATOPATHOLOGY REPORT Pathology #: [id number] ? Date Obtained: 10/07/2014 ?Date Received: 10/07/2014 DIAGNOSIS: ? Skin, left lateral thigh, shave biopsy: ?- Basal cell carcinoma, superficial pattern, presen t at biopsy ?margin. ?SHERINE ALVAREZ MD ? (electronic signatur e) ? 10/08/2014 ??15:2 4 CLINICAL NOTES: ? New spot near previous BCC, R/O BCC ORGAN/TISSUE SITE ? Left lateral thigh GROSS DESCRIPTION: ? Received in a formalin-filled container labeled with the patient's ? name is an 8 x 7 x 1 mm shave biopsy of skin. The spe cimen is ? marked with black ink, trisected, and submitted everr sohan in one ? cassette. ? cs ?WENNI MICROSCOPIC DESCRIPTION: ? Microscopic evaluation performed. ? End of Report Specimen Anatomical Collection Method Collection Time Receive d Time (Source) Location / / Volume Laterality SHAVE BIOPSY OF 10/07/2014 7:00 AM 2014 7:00 SKIN / Unknown CDT AM CDT Transcriptions 08/03/2016 9:05 AM CSTNotes Recorded by Lou Rogers RN on 10/15/2014 at 8:49 AMPt called and scheduled ED\T\C for 11/25 at 8:15.------Notes Recorded by Sol Paulino LPN on 10/14/2014 at 10:09 AM pt called back. Discussed her options wi th her. 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 Is leaning more towards the ED \T\ C, but will call us back in a few days with her decision.------ Notes Recorded by Chandrika Martinez MA on 10/13/2014 at 10:22 AMleft message to call back and discuss results and treatment options------Notes Recorded by Rylee Taylor APRN, SIERRA on 10/09/2014 at 12:45 PM Called patient on her cell and left mess age that the lesion removed on her leg was the BCC we had discussed at her visit. Since it is a superficial pattern, it can be removed by me in clinic with E,D \T \ C or she can treat with Aldara or Efud ex cream to the area for several weeks. Please contact patient to confirm she got my message and which treatment she prefers. Rylee Schwartz APRN, CNP LAB_1 Performing Organization Address City/State/ZIP Code Phon e Number HP CONVERSION documented in this encounter Visit Diagnoses Diagnosis Benign neoplasm of skin of trunk, except scrotum - Primary Personal history of other malignant neop lasm of skin Personal history of malignant melanoma o f skin Screening for malignant neoplasm of the skin Caf?? au lait spot Other dyschromia Solar lentigo Other dyschromia BCC (basal cell carcinoma), leg, left documented in this encounter Care Teams Health Editor Relationship Specialty Start Date End Date Munira Combs PA-C PCP - General 09/25/10 03/14/15 [address] [place] [address] documented as of this encounter
--- OUTSIDE RECORDS SUMMARY | 2022-03-20 16:16 | XMS_ITS | Encounter Summary ---
:1975 Author Organization [employer] Address [address], [place] [address] Care Team Providers Name Role Phone Kinga Pickett APRN, CNP Primary Care Provider [phone] Reason for Visit Reason Comments STD Exposure Encounter Details Date Type Department Care Team Description 03/24/2015 Office Visit [facility] [address] (Primary Dx); Family Medicine SIERRA GRANT Routine screening for STI (sexually jaquez smitted infection); [address] for influenza 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 documented as of this encounter Last Filed Vital Signs Vital Sign Reading Time Taken Comments Blood Pressure 118/70 03/24/2015 11:15 AM CDT Pulse 84 03/24/2015 11:15 AM CDT Temperature - - Respiratory Rate - - Oxygen Saturation - - Inhaled Oxygen Concentration - - Weight 74.2 kg (163 lb 9.6 oz) 03/24/2015 11:15 AM CDT Height - - Body Mass Index 26.01 09/30/2014 8:31 AM CDT documented in this encounter Progress Notes Kinga Pickett APRN, CNP - 03/24/2015 11:29 AM CDT Progress Notes signed by Kinga Pickett APRN, CNP at 03/25/15738 Author: Kinga Pickett APRN, CNP Service: (none) Author Type: Nurse Practitioner Filed: 03/25/15 0739 Note Time: 03/25/15433 Status: Signed [employer] Professor: Kinga Pickett APRN, CNP (Nurse Practitioner) NAME: IGGY DUARTE MR#: [id number] CSN: [id number] AUTHENTICATING CLINICIAN: MICHAEL Camarillo CONFIRM #: [id number] LOC: 402 CLINIC PROGRESS NOTE DATE OF VISIT: 03/24/2015 : 1975 SUBJECTIVE: Presents today with multiple complaints. 1. Patient would like an STD screen. Patient recently went through a divorce found that her was unfaithful and does not have any signs of a STD but would like to have testing to ensure that sheis safe. 2. Has noticed that she has had multiple bruising. Patient has moved recently, has lost approximately 25 pounds due to stress and diet changes and has noticed that she has had random bruises that are mild mostly on her arms and legs and wants to ensure that her iron levels are okay. PAST MEDICAL HISTORY: Reviewed and updated in EMR. CURRENT MEDICATIONS: Reviewed and updated in EMR. ALLERGIES: Reviewed and updated in EMR. OBJECTIVE: Weight 163.6, blood pressure 118/70. Pulse is 84. Sitting comfortably in no acute distress. PSYCHIATRIC: Alert, oriented, normal affect and insight. ASSESSMENT: 1. Sexually transmitted infection screen. 2. Bruising. 3. Flu shot. PLAN: 1. Will check CBC, iron. 2. Monitor bruising. 3. Sexually transmitted infection screen. 4. Flu shot given. 5. Follow up as needed. Patient verbalizes and agrees with this. KAF:MEDQ C: CONFIRM #: [id number] documented in this encounter Plan of Treatment Upcoming Encounters Date Type Specialty Care Team Description 05/05/2022 Appointment Chemo Therapy/Infusion Services 09/15/2022 Telemedicine Gastroenterology Eusebio Haines MD [address] [place], [place] [id number] (Wo rk) documented as of this encounter Visit Diagnoses Diagnosis Bruise - Primary Contusion of unspecified site Routine screening for STI (sexually jaquez smitted infection) Screening examination for venereal disea se Need for influenza vaccination Need for prophylactic vaccination and in oculation against influenza documented in this encounter Care Teams Filter Press Operator Relationship Specialty Start Date End Date Kinga Pickett, HAIR DESIGNER, KNOCKER OFF PCP - General 03/15/15 07/04/16 [address] [place], [place] [id number] documented as of this encounter
--- OUTSIDE RECORDS SUMMARY | 2022-03-20 16:16 | XMS_ITS | Encounter Summary ---
:1975 Author Organization [employer] Address [address] [place] [address] Care Team Providers Name Role Phone Munira Combs PA-C Primary Care Provider Reason for Visit Reason Comments ANXIETY Encounter Details Date Type Department Care Team Description 01/18/2015 Office Visit [facility] Sue, JANNET (generalized anxiety dis order) (Primary Dx); [address] [place] [address] [address] [facility] [phone] [place] [address] (Wo rk) Social History Tobacco Use Types Packs/Day Years Used Date Smoking Tobacco: Never Assessed Sex Assigned at Date Recorded Female 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 Anxiety Idania Duarte is an 39 y.o. female who presents for evaluation of situational stress and anxiety. She has been for 16 years. On 08 January told her that he wanted a divorce. Apparently there has been a long-term issues with him being unfaithful. They are trying to settle things financially. She is sad about this but also relieved to some degree. She finds that she's having a hard time focusing and is tearful. She would like to have some Ativan on hand and would like to start Zoloft. 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 Medications reviewed in EMR Adverse drug reactions: Review of patient's allergies indicates no known allergies. Vital signs: BP 120/70 mmHg Pulse 72 Wt 184 lb (83.462 kg) Objective: Vital Signs: BP 120/70 mmHg Pulse 72 Wt 184 lb (83.462 kg) General: Pleasant female, alert, in NAD. Tearful but in no acute distress.. Psychiatric: Alert & oriented with normal affect and insight. Assessment and plan: Diagnosis (ICD9) ICD-9-CM ICD-10-CM 1. JANNET (generalized anxiety disorder) (ACG) 300.02 F41.1 2. Situational stress V62.89 Z65.8 Idania was seen today for anxiety. Diagnoses and associated orders for this visit: JANNET (generalized anxiety disorder) (ACG) - sertraline (ZOLOFT) 50 mg tablet; Take 1 tablet by mouth daily (every 24 hours). - LORazepam (ATIVAN) 0.5 mg tablet; Take 1 tablet by mouth every 6 hours as needed for Anxiety. Situational stress - sertraline (ZOLOFT) 50 mg tablet; Take 1 tablet by mouth daily (every 24 hours). - LORazepam (ATIVAN) 0.5 mg tablet; Take 1 tablet by mouth every 6 hours as needed for Anxiety. Follow up - P.r.n. Total times patient 15 minutes. documented in this encounter Plan of Treatment Upcoming Encounters Date Type Specialty Care Team Description 05/05/2022 Appointment Chemo Therapy/Infusion Services 09/15/2022 Telemedicine Gastroenterology Eusebio Haines MD [address] [place] [address] (Wo rk) documented as of this encounter Visit Diagnoses Diagnosis JANNET (generalized anxiety disorder) (HRC) - Primary Generalized anxiety disorder Situational stress (HRC) Other psychological or physical stress, not elsewhere classified documented in this encounter Care Teams Solutions Sales Consultant Relationship Specialty Start Date End Date Munira Combs PA-C PCP - General 09/25/10 03/14/15 [address] [place] [address] documented as of this encounter
--- OUTSIDE RECORDS SUMMARY | 2022-03-20 16:16 | XMS_ITS | Encounter Summary ---
:1975 Author Organization [facility] Address [address] [place] [address] Care Team Providers Name Role Phone Munira Combs PA-C Primary Care Provider Encounter Details Date Type Department Care Team Description 01/09/2014 Lab Visit [facility]31 Screen ing for diabetes mellitus; Outpatient Laborator y Screening for lipoid disorde rs; 39[address] [facility] Screening examination for pu lmonary tuberculosis; [place] [address] Antibody response examinatio n [phone] Social History Tobacco Use Types Packs/Day Years Used Date Smoking Tobacco: Never Assessed Sex Assigned at Date Recorded Female 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 HEPATITIS B VALERIA, Routine 01/09/2014 8:50 AM Antibody response Results for this QUANTITATIVE CDT examination procedure are i n the results section. GLUCOSE Routine 01/09/2014 8:50 AM Screening for Results for this CDT diabetes mellitus procedure are in the results section. CHOLESTEROL, TOTAL Routine 01/09/2014 8:50 AM Screening for li poid Results for this AND HDL CDT disorders procedure are i n the results section. MUMPS IMMUNE STATUS, Routine 01/09/2014 8:50 AM Antibody respo nse Results for this IGG CDT examination procedure are i n the results section. documented in this encounter Results HEPATITIS B VALERIA, QUANTITATIVE (01/09/2014 8:50 AM CDT) Analysis Performed At Patho logist Time Signature Hep B Surf Ab Reactive Non-Reacti HP CONVERSION ve Hep B Ab Quant 562 HP CONVERSION Specimen Anatomical Collection Method Collection Time Receive d Time (Source) Location / / Volume Laterality 01/09/2014 8:50 AM 4 9:01 CDT AM CDT Ivan Donis MD LAB_1 Performing Organization Address City/[facility]/ZIP Code Phon e Number HP CONVERSION Mumps Immune Status, IgG (01/09/2014 8:50 AM CDT) P athologist Signature Mumps Immune Immune Immune HP CONVERSION Status (IgG) Specimen Anatomical Collection Method Collection Time Receive d Time (Source) Location / / Volume Laterality 01/09/2014 8:50 AM 4 9:01 CDT AM CDT Ivan Donis MD LAB_1 Performing Organization Address City/[facility]/ZIP Code Phon e Number HP CONVERSION QUANTIFERON GOLD (IN-HOUSE) (TBQFT) (01/09/2014 8:50 AM CDT) Patholo gist Method Time Signature Tuberculosis Negative Negative HP CONVERSION Qualitative Inhouse Comment: The test result is Negative M.tuberculosis infection is unlikely, bu t cannot be excluded, especially when illness is consistent wi th TB. [employer]agen QuantiFERON-TB Gold is an indirec t test utilizing Interferon-gamma (IFN-y) CHRIS for M.tub erculosis infection (including disease) and is intended for use in conjunction with risk assessment, radiography and ot her medical and diagnostic evaluations. ??The performanc e of the [facility] format of the test has not been extensively zandra luated with specimens from the followin.Individua ls who have impaired or altered immune function such as those who have HIV infection or AIDS, those who have transp lantation managed with immunosuppressive treatment or othe rs who receive immunosuppressive drugs, and those who h ave other clinical conditions:diabetes, silicosis, chronic renal failure, hematological disorders(e.g.leukemia & l ymphomas), and other specific malignancies (e.g.carcinoma of the head, neck, or lung). 2. Individuals younger than 17 ye ars. Specimen Anatomical Collection Method Collection Time Receive d Time (Source) Location / / Volume Laterality 01/09/2014 8:50 AM 4 9:01 CDT AM CDT Ivan Donis MD LAB_1 Performing Organization Address City/[facility]/ZIP [facility] Phon e Number HP CONVERSION Cholesterol, Total and HDL (01/09/2014 8:50 AM CDT) athologist Signature Cholesterol 187 0 - 200 HP CONVERSION mg/dL HDL Cholesterol 58 >39 mg/dL HP CONVERSION Cholesterol/HDL 3.2 HP CONVERSION Ratio Screen Specimen Anatomical Collection Method Collection Time Receive d Time (Source) Location / / Volume Laterality 01/09/2014 8:50 AM 4 9:01 CDT AM CDT Ivan Donis MD LAB_1 Performing Organization Address City/[facility] Phon e Number HP CONVERSION GLUCOSE (01/09/2014 8:50 AM CDT) P athologist Signature Lab Glucose 83 60 - 100 HP CONVERSION mg/dL Specimen Anatomical Collection Method Collection Time Receive d Time (Source) Location / / Volume Laterality 01/09/2014 8:50 AM 4 9:01 CDT AM CDT Ivan Donis MD LAB_1 Performing Organization Address [facility]/ZIP [facility] Phon e Number HP CONVERSION documented in this encounter Visit Diagnoses Diagnosis Screening for diabetes mellitus Screening for lipoid disorders Screening examination for pulmonary tube rculosis Antibody response examination documented in this encounter Care Teams Processing Talc And Borate Supervisor Relationship Specialty Start Date End Date Munira Combs PA-C PCP - General 09/25/10 03/14/15 [address] [place] [address] documented as of this encounter
--- OUTSIDE RECORDS SUMMARY | 2022-03-20 16:16 | XMS_ITS | Encounter Summary ---
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 Rx walked to [place] [facility]. Ene Sue PA-C - 03/04/2015 4:28 PM CDT printed Raissa Hopper - 03/04/2015 2:08 PM CDT PLEASE PRINT SIGN AND DELIVER REFILL [facility]IA [facility] LORAZEPAM 0.5 MG TAB 30 LAST VISIT 01/18/15 LAST FILL 02/11/15 documented in this encounter Plan of Treatment Upcoming Encounters Date Type Specialty Care Team Description 05/05/2022 Appointment Chemo Therapy/Infusion Services 09/15/2022 Telemedicine Gastroenterology Eusebio Haines MD [address] [place] [address] (Wo rk) documented as of this encounter Visit Diagnoses Diagnosis JANNET (generalized anxiety disorder) (HRC) - Primary Generalized anxiety disorder Situational stress (HRC) Other psychological or physical stress, not elsewhere classified documented in this encounter Care Teams Trial Judge Relationship Specialty Start Date End Date Munira Combs PA-C PCP - General 09/25/10 03/14/15 [address] [place], [place] [id number] documented as of this encounter
--- OUTSIDE RECORDS SUMMARY | 2022-03-20 16:16 | XMS_ITS | Encounter Summary ---
:1975 Author Organization [employer] Address [address], [place] [address] Care Team Providers Name Role Phone Munira Combs PA-C Primary Care Provider Reason for Visit Reason Comments MEDICATION THERAPY MANAGEMENT Encounter Details Date Type Department Care Team Description 09/19/2013 Office Visit [facility] for medication management (Primary Dx); Medicine [place] HTN (hypertension) [address] [address] [place] [address] [address] [phone] [place] [address] Social History Tobacco Use Types Packs/Day Years Used Date Smoking Tobacco: Never Assessed Sex Assigned at Date Recorded Female 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 female coming in for an initial visit for Medication Management. She was referred to me from Munira Combs. her Primary Care provider is Munira Combs. her main concern(s) are HTN. Idania did not bring in actual medications with today. Medication allergies/adverse reactions include: Reviewed in EPIC. NKDA Social History updated and reviewed in EPIC. yes. Smokes socially. Caffeine use: 20 oz of pop per day. Activity/Exercise: not active Social History Narrative: Has a stressful job. Although has been better in the past week. Barriers to Care or Assistance Devices: None Patient Reported Past Medical History: IBS, Chronic Headaches [Medication Adherence/[place]] she reports taking medications 2 times per day. Idania reports missing 0 dose(s) of medication over the course of the week. [HTN]- Started on Metoprolol Succ 25 mg at night about 3 weeks ago. Has noticed she has less headaches, maybe 3 total in the last few weeks instead of one every single day. Hasn't checked BP since lastvisit. Doesn't have home BP monitor. Denies palpitations. Denies fatigue and dizziness/lightheadedness. Continues on Triamterene/HCTZ 37.5/25 mg in AM. Has cut back on adding salt to food. Used to use a lot of salt on food. Current Labs: Lab Results Component Value Date WBCIR 17.4* 02/15/2012 RBC 4.72 02/15/2012 HGB 14.0 08/25/2013 HCT 43.1 02/15/2012 MCV 91.3 02/15/2012 RDW 12.3 02/15/2012 PLATELET 338 02/15/2012 SODIUM 140 08/25/2013 POTASSIUM 3.9 08/25/2013 BICARB 25 08/25/2013 BUN 19 03/02/2008 CREA 0.7 08/25/2013 CALCIUM 9.5 03/02/2008 AST 24 02/15/2012 ALT 26 02/15/2012 BILT 0.2 02/15/2012 ALB 3.4 06/08/2005 CHOLESTEROL 179 08/25/2013 HDL 54 08/25/2013 TRIGLYCERIDE 79 08/25/2013 LDL 109 08/25/2013 BP 125/86 Pulse 96 LMP 05/05/2013 Wt Readings from Last 3 Encounters: 08/25/13 194 lb 4 oz (88.111 kg) 08/10/12 195 lb 4 oz (88.565 kg) 02/19/12 189 lb (85.73 kg) BP Readings from Last 3 Encounters: 09/19/13 125/86 08/25/13 150/82 08/10/12 126/72 Pulse Readings from Last 3 Encounters: 09/19/13 96 08/25/13 98 02/19/12 93 Assessment: With regards to her Medication Management the following things were reviewed: Indication, effectiveness, safety and convenience of her medications. The above medical conditions were assessed, evaluated, and deemed meeting goals of drug therapy except as listed below. [HTN]- Controlled. BP at goal < 140/90. Tolerating Metoprolol well. No palpitations. Plan: Medication comments/concerns are: 1. Recommended pt continue on Metoprolol Succ ER 25 mg daily. Refills provided per refill protocol. This report was sent to Munira Combs. Idania was advised to make a follow-up visit with Munira Combs to discuss this report and not to make any medication changes without the approval of the appropriatemedical provider. Time spent with patient is 25 minutes. Will follow up if necessary. Chandrika Del Real, PharmD, BCACP Medication Management Pharmacist [facility] Smartform completed: yes documented in this encounter Plan of Treatment Upcoming Encounters Date Type Specialty Care Team Description 05/05/2022 Appointment Chemo Therapy/Infusion Services 09/15/2022 Telemedicine Gastroenterology Eusebio Haines MD [address] [place] [address] (Wo rk) documented as of this encounter Visit Diagnoses Diagnosis Encounter for medication management - Pr imary HTN (hypertension) (HRC) Unspecified essential hypertension documented in this encounter Care Teams Software Quality Manager Relationship Specialty Start Date End Date Munira Combs PA-C PCP - General 09/25/10 03/14/15 [address] [place], [place] [id number] documented as of this encounter
--- OUTSIDE RECORDS SUMMARY | 2022-03-20 16:16 | XMS_ITS | Encounter Summary ---
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 0 02/15/2012 Antacid 1000 MG Reported on 08/14/2016 Multiple Vitamin Take 1 tablet by 0 11/14/2011 (MULTI-VITAMIN OR) mouth daily (every 24 hours). LORazepam (AKA ATIVAN) Take 1 tablet by 30 tablet 0 015 04/27/2015 0.5 MG mouth every 6 hours tabletIndications: JANNET as needed for (generalized anxiety Anxiety. disorder) (HRC), Situational stress (HRC) amitriptyline (AKA Take 1-2 tablets by 180 tablet 4 10/01/19 15 06/12/2015 ELAVIL) 25 MG tablet mouth nightly. Calcium Carbonate Take by mouth. 0 02/15/201201/2016 Antacid CHEW dicyclomine (AKA Take 1 tablet by 360 tablet 3 09/30/2014 BENTYL) 20 MG mouth 4 times daily tabletIndications: as needed. Irritable bowel syndrome Norethin-Eth Estrad Take 1 tablet by 112 tablet 4 09/30/2014 11/23/2015 Triphasic mouth daily (every 24 (ORTHO-NOVUM/12/29) hours). Patient takes 0.5/0.75/1-35 MG-MCG continously tablet norethindrone-eth Take 1 tablet by 28 tablet 0 07/05/2011 0 07/19/2016 estradiol (AKA NORINYL, mouth daily TAKE ORTHO NOVUM) 1-35 ACTIVE PILLS DAILY MG-MCG tablet THEN DISCARD INACTIVE PILLS AND IMMEDIATELY START NEXT PACK. TAKING CONTINUOUSLY sertraline (AKA ZOLOFT) Take 1 tablet by 90 tablet 3 201406/12/2015 50 MG mouth daily (every 24 tabletIndications: JANNET hours). (generalized anxiety disorder) (HRC), Situational stress (HRC) triamterene-hydrochloro Take 1 tablet by 90 tablet 4 201411/18/2015 thiazide (MAXZIDE-25) mouth daily (every 24 37.5-25 MG hours). tabletIndications: Essential hypertension (HRC) documented as of this encounter Progress Notes Louisa Patino MD - 04/02/2015 1:46 PM CDT Progress Notes signed by Louisa Patino MD at 04/06/15 5607 Author: Louisa Patino MD Service: (none) Author Type: Physician Filed: 04/06/15 1624 Note Time: 04/03/15 1142 Status: Signed Back Shoe Worker: Louisa Patino MD (Physician) NAME: IDANIA DUARTE MR#: [id number] CSN: [id number] AUTHENTICATING CLINICIAN: Louisa Patino MD CONFIRM #: [id number] LOC: 3704 CLINIC PROGRESS NOTE DATE OF VISIT: 04/02/2015 : 1975 REASON FOR CONSULT: Elevated white blood cell count. HPI: Ms. Duarte is a very pleasant 39-year-old female who was found on routine laboratory studies 03/24/2015 to have a white count of 14.2, hemoglobin 13.7, and platelet count of 336,000, with ANC of 9400.Differential was otherwise normal. Ms. Duarte does not recall ever having a high white blood cell count in the past. Of note, her CBC in September of this year showed a white count of 12.2. The most recent CBC prior to that was in January 2012 with a white count of 17.4. Ms. Duarte does believe that she was dealing with a C difficile infection at that time in January 2012. Ms. Duarte overall has been inexcellent health. She does say that she has had some recent stress with a divorce. She says that sheis doing well emotionally with this and spending a lot of time with friends. She does say that with the stress of the divorce she was smoking quite a bit more. Typically, she is more of a social smoker, maybe once or twice a day. She is not around a lot of people with cigarette smoke. She has been eating healthy. She has lost about 10 pounds, but is overall quite happy with that weight loss. She has a history of irritable bowel, and she typically will eat yogurt, sandwich, and apples throughout the day. She says that her appetite is fair. She has not been having any worsening digestion problems. She denies any recent infections. She has not had any recent medication changes except she was placed on sertraline, I believe in December. She says that she is now working herself off that medication. REVIEW OF SYSTEMS: Negative for fevers, chills, lymphadenopathy, bleeding, bruising, rash. She has not noticed any balance problems. She has not had any bleeding issues. Complete review of systems is otherwise negative. PAST MEDICAL HISTORY: 1. History of melanoma removed from the trunk in June 2008. The patient follows up yearly with Dermatology. 2. Chronic headaches. 3. Irritable bowel syndrome. 4. Basal cell carcinoma removed from the leg. 5. Hypertension. 6. History of concussion. 7. History of obesity. 8. History of C difficile colitis. PAST SURGICAL HISTORY: 1. Tonsillectomy. 2. Cyst removal from the left wrist. ALLERGIES: None. MEDICATIONS: Updated and reviewed in the patient's medication profile. FAMILY HISTORY: The patient's brother was diagnosed with melanoma and underwent surgical resection. He has not had evidence of recurrence. The patient's maternal grandfather had a history of prostate cancer, metastatic to bone. There is no other family history of malignancy. SOCIAL HISTORY: The patient is, I believe, currently undergoing a divorce. 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 She very much enjoys this. She is a current smoker. She does have 1 horse and is exposed to chicken, geese, barn cats, and dogs. She says that she did grow up in [place], and she and her brother spent most of their time outside and sunburns were frequent. PHYSICAL EXAMINATION: Temperature 98.5, pulse 109, blood pressure 141/91, height is 66 inches, weight is 159 pounds. GENERAL: This is a well-developed, well-nourished female, pleasant, alert. No acute distress. HEENT: Sclerae anicteric. Oropharynx is clear. NECK: Supple. LYMPH NODES: No noted lymphadenopathy. MUSCULOSKELETAL: No CVA tenderness. No spinal tenderness to palpation. CHEST: Clear to auscultation bilaterally. CARDIOVASCULAR: Regular rate and rhythm. ABDOMEN: Normoactive bowel sounds present. Soft, nontender, nondistended. No noted hepatosplenomegaly. EXTREMITIES: Warm without cyanosis, clubbing, or edema. SKIN: No rash, bruising, or petechiae. LABORATORY STUDIES: More recently, hepatitis C testing 03/24 was normal, HIV testing was nonreactive, ferritin was normalat 71. ASSESSMENT: 39-year-old female with elevated white blood cell count. PLAN: I discussed with Ms. Duarte that overall I suspect her elevated white blood cell count is likely reactive in nature. We discussed that with the elevated neutrophil count this would fit with tobacco exposure. We discussed there is also the possibility that there could be something inflammatory going on to elevate the patient's blood counts or less likely a bone marrow issue. To complete the workup, Iwill request a repeat CBC, oncology profile smear, sedimentation rate, SPEP, B12 folate levels. I will plan to have Ms. Duarte return to clinic once the above laboratory studies are known. If her white blood cell count returns to normal then she can simply have this followed periodically. If the above workup is not normal then I would encourage her to stop smoking and see if her blood count returns to normal. I did answer all of her questions to the best of my ability. CC: HOANG PEACOCK, [facility] [address] [place] [address] MELANIEK:MEDTwan C: CONFIRM #: [id number] documented in this encounter Miscellaneous Notes MR DOWLING Uriel - Sheron, MD Elmer - 04/02/2015 1:31 PM CDT Images from the original note were not included. [facility] [address] [place] [address] Dept: [phone] [email or web address] Idania Duarte 04/02/2015 12:50 PM Hospital Encounter Department: [facility] Oncology Dept Description: Female : 1975 Provider: Louisa Patino MD Thank you for choosing [facility] for your health care visit with Louisa Patino MD. We are happy to care for you and provide this summary of your visit. HERE IS WHAT YOU NEED TO KNOW To learn how you can take steps to stay as healthy as you can be visit [email or web address] HERE IS WHAT YOU NEED TO DO Call your clinic if: You develop new symptoms Your symptoms worsen unexpectedly You are not improving as expected You have questions about your visit or medications Your to do list Future Appointments Provider Department Dept Phone 04/28/2015 3:10 PM Louisa Patino MD [facility] [phone] Future Orders Complete By Ordering Dept. GASTROENTEROLOGY CONSULT ADULT (AMB) As directed [place] [id number] [facility] Scheduling Instructions: Your provider has recommended an appointment with [facility]. You may call [phone] to schedule your appointment. If you prefer, a radiology scheduler will contact you within the next 3 business days to assist you in setting up this appointment. This recommended service/s may not be covered by your insurance coverage. To find out your specific benefit coverage, please call the number on your insurance card. MEDICAL WEIGHT MANAGEMENT CONSULT ADULT (AMB) As directed [place] [id number] [facility] Scheduling Instructions: Your provider has recommended an appointment with [facility]. You may call [phone] to schedule your appointment. If you prefer, a radiology scheduler will contact you within the next 3 business days to assist you in setting up this appointment. This recommended service/s may not be covered by your insurance coverage. To find out your specific benefit coverage, please call thenumber on your insurance card. HERE IS INFORMATION FROM TODAY'S VISIT Reason for Visit Consult Reason for Visit History Health issues considered by your clinician today Elevated WBC count (HRC) If you had any tests that were not discussed during your visit, you will be notified of your results by your clinic. We Performed the Following ONCOLOGY / HEMATOLOGY CONSULT ADULT (AMB) Medications administered today None MEDICATIONS As of today's visit, these are your current medications DOSAGE amitriptyline (ELAVIL) 25 mg tablet (Taking) Take 1-2 tablets by mouth nightly. Calcium Carbonate 1,000 mg Tab (Taking) Take by mouth. dicyclomine (BENTYL) 20 mg tablet (Taking) Take 1 tablet by mouth 4 times daily as needed. LORazepam (ATIVAN) 0.5 mg tablet (Taking) Take 1 tablet by mouth every 6 hours as needed for Anxiety. MULTI-VITAMIN ORAL (Taking) Take 1 tablet by mouth daily (every 24 hours). norethindrone-ethinyl estradiol (NECON , 28,) 1-35 mg-mcg per tablet (Taking) Take 1 tablet by mouth daily (every 24 hours). Patient takes continously sertraline (ZOLOFT) 50 mg tablet Take 1 tablet by mouth daily (every 24 hours). triamterene-hydrochlorothiazide (MAXZIDE-25) 37.5-25 mg per tablet (Taking) Take 1 tablet by mouth daily (every 24 hours). Vital signs from your visit Your Vital Signs Were BP Pulse Temp(Src) 141/91 mmHg 109 98.5 ??F (36.9 ??C) (Oral) Height Weight BMI 5' 6 (1.676 m) 159 lb (72.122 kg) 25.68 kg/m2 Last Period Smoking Status 02/21/2015 Current Some Day Smoker Allergies as of 04/02/2015 No Known Allergies Immunization History Reviewed on 03/24/2015 FLUARIX INFLUENZA QIV (36+ MOS) 03/24/2015, 03/23/2014 H1N1 0.5ML 06/09/2013 H1N1 INFLUENZA LIVE INTRANASAL 04/13/2009 HEP B 02/08/2006, 01/02/2002 Hepatitis B Virus Vacc Recom/Medic Con 08/09/2001 INFLUENZA TIV 0.5 ML (36+ MOS) 03/04/2012, 03/10/2010, 03/04/2009, 04/17/2008, 04/08/2008, 04/03/2007,04/09/2006 Influenza TIV (36+ mos) 03/10/2011 Td Adult (>7 years) 11/30/2003 Tdap (Adacel) 07/04/2010 About You Date Of Sex Race Ethnicity Preferred Language 1975 Female White Non- Tongan This document contains confidential information about your health and care. It is provided directlyto you for your personal, private use only. documented in this encounter Plan of Treatment Upcoming Encounters Date Type Specialty Care Team Description 05/05/2022 Appointment Chemo Therapy/Infusion Services 09/15/2022 Telemedicine Gastroenterology Eusebio Haines MD [address] [place] [address] (Wo rk) documented as of this encounter Visit Diagnoses Diagnosis Elevated WBC count (HRC) Leukocytosis, unspecified documented in this encounter Care Teams Explosives Handler Relationship Specialty Start Date End Date Hoang Peacock, EMPLOYMENT TRAINING SPECIALIST, TRANSPORTATION AID PCP - General 03/15/15 07/04/16 [address] [place] [address] documented as of this encounter
--- OUTSIDE RECORDS SUMMARY | 2022-03-20 16:16 | XMS_ITS | Encounter Summary ---
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 documented as of this encounter Nursing Notes Sindy Duron LPN - 01/28/2015 10:10 AM CDT Rx to pharm Ene Sue PA-C - 01/28/2015 10:05 AM CDT printed [place] Raissa Hopper - 01/28/2015 10:02 AM CDT PLEASE PRINT SIGN AND DELIVER REFILL (Idania states she is not out of med, he has left and she is packing up) [facility] LORAZEPAM 0.5 MG TAB 30 LAST FILL 01/25/15 documented in this encounter Plan of Treatment Upcoming Encounters Date Type Specialty Care Team Description 05/05/2022 Appointment Chemo Therapy/Infusion Services 09/15/2022 Telemedicine Gastroenterology Eusebio Haines MD [address] [place] [address] (Wo rk) documented as of this encounter Visit Diagnoses Diagnosis JANNET (generalized anxiety disorder) (HRC) - Primary Generalized anxiety disorder Situational stress (HRC) Other psychological or physical stress, not elsewhere classified documented in this encounter Care Teams Dumping Machine Operator Relationship Specialty Start Date End Date Munira Combs PA-C PCP - General 09/25/10 03/14/15 [address] [place] [address] documented as of this encounter
--- OUTSIDE RECORDS SUMMARY | 2022-03-20 16:16 | XMS_ITS | Encounter Summary ---
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 RUNNER Justin Dunaway PA-C - 04/27/2015 2:33 PM CST Looks like she has established care with Kinga Pickett. Please route to her. RUNNER Ifrah Khanna - 04/27/2015 11:23 AM CST PRINT, SIGN AND BRING TO [facility] LORAZEPAM 0.5MG TABS QTY 30 LAST FILLED 03/04/2015 LAST OFFICE VISIT 01/18/2015 RUNNER documented in this encounter Plan of Treatment Upcoming Encounters Date Type Specialty Care Team Description 05/05/2022 Appointment Chemo Therapy/Infusion Services 09/15/2022 Telemedicine Gastroenterology Eusebio Haines MD [address] [place] [address] (Wo rk) documented as of this encounter Visit Diagnoses Diagnosis JANNET (generalized anxiety disorder) (HRC) - Primary Generalized anxiety disorder Situational stress (HRC) Other psychological or physical stress, not elsewhere classified documented in this encounter Care Teams Web Site Administrator Relationship Specialty Start Date End Date Kinga Pickett APRN, CNP PCP - General 03/15/15 07/04/16 [address] [place], [place] [id number] documented as of this encounter
--- OUTSIDE RECORDS SUMMARY | 2022-03-20 16:16 | XMS_ITS | Encounter Summary ---
:1975 Author Organization [employer] Address [address], [place] [address] Care Team Providers Name Role Phone Munira Combs PA-C Primary Care Provider Reason for Visit Reason Comments Basal Cell Carcinoma Encounter Details Date Type Department Care Team Description 11/25/2014 Office Visit [facility] [address], History of basal cell Dermatology [facility] cancer (Primary Dx) [address] [place] [phone] (Wo rk) Social History Tobacco Use Types Packs/Day Years Used Date Smoking Tobacco: Never Assessed Sex Assigned at Date Recorded Female 05/09/2021 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 female here for evaluation of biopsy proven superficial basal cellcancer on the left lateral thigh. Present at biopsy margin.. Last seen: 10/07/14 when lesion was biopsied. We did contact patient and reviewed options for treatment. -She preferred electrodesiccation and curettage. -Reviewed procedure with her today including risks and benefits. -Patient gave consent to proceed. No other concerns today. Skin/Sun/Radiation history: Extensive sun exposure with some indoor tanning without use of sunscreen. Family history: Brother with melanoma on his leg. PMH: Past Medical History Diagnosis Date ??? Chronic headaches 08/11/2011 ??? Irritable bowel syndrome 11/29/2002 ??? 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 BCC (basal cell carcinoma), leg ([facility]) 08/11/2011 ??? HTN (hypertension) ([facility]) 08/11/2011 ??? Concussion 08/11/2011 ??? Obesity ([facility]) 08/11/2011 ??? Hx of tonsillectomy 08/11/2011 ??? [...] daily as needed. 360 tablet 3 ??? fluorouracil (EFUDEX) 5 % cream Apply topically 2 times daily. to area of skin cancer x 6 weeks.40 g 0 ??? MULTI-VITAMIN ORAL Take 1 tablet by mouth daily (every 24 hours). ??? 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 Smoking status: [...] Weight Concern Yes Social History Narrative ROS: Complete 8 pt ROS obtained and negative. See HPI for pertinent positives. Physical Exam: General: Well appearing female in no acute distress, alert and oriented x 3, normal affect, ambulates without difficulty. Skin: Womack type III. Severe sun damage in a photo-distributed pattern. Afocused skin exam was performed of the Face, neck, lower extremities, eyelids, lips is performed. Notable findings include: -Well-healed scar left lateral thigh at site of biopsy. -Location confirmed with photo on file. -Remainder of observe skin within normal limits. Assessment: 1. biopsy-proven superficial basal cell cancer left lateral thigh with cells present at margin. Plan: 1. Electrodesiccation and curettage of residual superficial basal cell cancer. Verbal consent was obtained after reviewing the risks of the procure including but not limited to bleeding, infection, scarring, recurrence. Skin cleansed with alcohol. Anesthesia with lidocaine with epinephrine. Site curetted to firm dermis. Thorough electrocautery to base and edges. Repeated for a total of 3 cycles. Vaseline and bandage applied. Wound care instructions given. No complications. Final EDC size: 1.0 x 1.0 cm 2. Aftercare Reviewed with Patient. 3. Advised continuation with annual skin checks or sooner if patient notes lesions of concern. follow up as needed documented in this encounter Plan of Treatment Upcoming Encounters Date Type Specialty Care Team Description 05/05/2022 Appointment Chemo Therapy/Infusion Services 09/15/2022 Telemedicine Gastroenterology Eusebio Haines MD [address] [place], [place] [address] (Wo rk) documented as of this encounter Visit Diagnoses Diagnosis History of basal cell cancer - Primary Personal history of other malignant neop lasm of skin documented in this encounter Care Teams Evaporator Operator Molasses Relationship Specialty Start Date End Date Munira Combs PA-C PCP - General 09/25/10 03/14/15 [address] [place] [address] documented as of this encounter
--- OUTSIDE RECORDS SUMMARY | 2022-03-20 16:16 | XMS_ITS | Encounter Summary ---
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 QUALITY SPECIALIST documented as of this encounter Nursing Notes Sindy Duron LPN - 02/11/2015 9:43 AM CDT Rx to pharm Justin Dunaway PA-C - 02/11/2015 9:38 AM CDT Rx on Sindy's desk Ifrah Khanna - 02/11/2015 9:24 AM CDT PRINT, SIGN AND BRING TO [facility] LORAZEPAM 0.5MG TABS QTY 30 LAST FILLED 02/01/2015 LAST OFFICE VISIT 01/18/2015 documented in this encounter Plan of Treatment Upcoming Encounters Date Type Specialty Care Team Description 05/05/2022 Appointment Chemo Therapy/Infusion Services 09/15/2022 Telemedicine Gastroenterology Eusebio Haines MD [address] [place] [address] (Wo rk) documented as of this encounter Visit Diagnoses Diagnosis JANNET (generalized anxiety disorder) (HRC) - Primary Generalized anxiety disorder Situational stress (HRC) Other psychological or physical stress, not elsewhere classified documented in this encounter Care Teams Mastercam Programmer Relationship Specialty Start Date End Date Munira Combs PA-C PCP - General 09/25/10 03/14/15 [address] [place] [address] documented as of this encounter
--- OUTSIDE RECORDS SUMMARY | 2022-03-20 16:16 | XMS_ITS | Encounter Summary ---
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 Patient takes 0.5/0.75/1-35 MG-MCG continously tablet [...] hypertension (HRC) documented as of this encounter Miscellaneous Notes Miscellaneous - 04/02/2015 11:59 PM CDTNotes Recorded by Keyla Camarillo RN on 04/21/2015 at 12:28 PMSpoke with patient and reviewed below results and recommendations. She states she has cut down smoking during the week, etc. She will see as scheduled next week. Note complete.------Notes Recorded by Keyla Camarillo RN on 04/14/2015 at 10:19 AMLVM for patient to call back to discuss labs and recommendations.------Notes Recorded by Keyla Camarillo RN on 04/07/2015 at 4:21 PMLVM for patient to call back to discuss.------Notes Recorded by Louisa Patino MD on 04/06/2015 at 4:41 PMplease let her know all extra labs are normal, it would be beneficial to see if she can quit or cut down on smoking and see if her wbc improves------Notes Recorded by Cat Brito RN on 04/06/2015 at 1:10 PMAll labs resulted from consult for elevated WBC on 04/02/15. Patient is seeing you again on 04/28/15, please advise if any changes are needed. Thanks. CE DISPATCHER Miscellaneous - 04/02/2015 11:59 PM CDTNotes Recorded by Keyla Camarillo RN on 04/21/2015 at 12:28 PMSpoke with patient and reviewed below results and recommendations. She states she has cut down smoking during the week, etc. She will see as scheduled next week. Note complete.------Notes Recorded by Keyla Camarillo RN on 04/14/2015 at 10:19 AML for patient to call back to discuss labs and recommendations.------Notes Recorded by Keyla Camarillo RN on 04/07/2015 at 4:21 PMLVM for patient to call back to discuss.------Notes Recorded by Louisa Patino MD on 04/06/2015 at 4:41 PMplease let her know all extra labs are normal, it would be beneficial to see if she can quit or cut down on smoking and see if her wbc improves------Notes Recorded by Cat Brito RN on 04/06/2015 at 1:10 PMAll labs resulted from consult for elevated WBC on 04/02/15. Patient is seeing you again on 04/28/15, please advise if any changes are needed. Thanks. CE DISPATCHER Miscellaneous - 04/02/2015 11:59 PM CDTNotes Recorded by Keyla Camarillo RN on 04/21/2015 at 12:28 PMSpoke with patient and reviewed below results and recommendations. She states she has cut down smoking during the week, etc. She will see as scheduled next week. Note complete.------Notes Recorded by Keyla Camarillo RN on 04/14/2015 at 10:19 AML for patient to call back to discuss labs and recommendations.------Notes Recorded by Keyla Camarillo RN on 04/07/2015 at 4:21 PMLVM for patient to call back to discuss.------Notes Recorded by Louisa Patino MD on 04/06/2015 at 4:41 PMplease let her know all extra labs are normal, it would be beneficial to see if she can quit or cut down on smoking and see if her wbc improves------Notes Recorded by Cat Brito RN on 04/06/2015 at 1:10 PMAll labs resulted from consult for elevated WBC on 04/02/15. Patient is seeing you again on 04/28/15, please advise if any changes are needed. Thanks. EETA Simno - 04/02/2015 11:59 PM CDTNotes Recorded by Keyla Camarillo RN on 04/21/2015 at 12:28 PMSpoke with patient and reviewed below results and recommendations. She states she has cut down smoking during the week, etc. She will see as scheduled next week. Note complete.------Notes Recorded by Keyla Camarillo RN on 04/14/2015 at 10:19 AMLVM for patient to call back to discuss labs and recommendations.------Notes Recorded by Keyla Camarillo RN on 04/07/2015 at 4:21 PMLVM for patient to call back to discuss.------Notes Recorded by Louisa Patino MD on 04/06/2015 at 4:41 PMplease let her know all extra labs are normal, it would be beneficial to see if she can quit or cut down on smoking and see if her wbc improves------Notes Recorded by Cat Brito RN on 04/06/2015 at 1:10 PMAll labs resulted from consult for elevated WBC on 04/02/15. Patient is seeing you again on 04/28/15, please advise if any changes are needed. Thanks. CE DISPATCHER [place] - 04/02/2015 11:59 PM CDTNotes Recorded by Keyla Camarillo RN on 04/21/2015 at 12:28 PMSpoke with patient and reviewed below results and recommendations. She states she has cut down smoking during the week, etc. She will see as scheduled next week. Note complete.------Notes Recorded by Keyla Camarillo RN on 04/14/2015 at 10:19 AML for patient to call back to discuss labs and recommendations.------Notes Recorded by Keyla Camarillo RN on 04/07/2015 at 4:21 PMLVM for patient to call back to discuss.------Notes Recorded by Louisa Patino MD on 04/06/2015 at 4:41 PMplease let her know all extra labs are normal, it would be beneficial to see if she can quit or cut down on smoking and see if her wbc improves------Notes Recorded by Cat Brito RN on 04/06/2015 at 1:10 PMAll labs resulted from consult for elevated WBC on 04/02/15. Patient is seeing you again on 04/28/15, please advise if any changes are needed. Thanks. CE DISPATCHER Miscellaneous - 04/02/2015 11:59 PM CDTNotes Recorded by Keyla Camarillo RN on 04/21/2015 at 12:28 PMSpoke with patient and reviewed below results and recommendations. She states she has cut down smoking during the week, etc. She will see as scheduled next week. Note complete.------Notes Recorded by Keyla Camarillo RN on 04/14/2015 at 10:19 AML for patient to call back to discuss labs and recommendations.------Notes Recorded by Keyla Camarillo RN on 04/07/2015 at 4:21 PMLVM for patient to call back to discuss.------Notes Recorded by Louisa Patino MD on 04/06/2015 at 4:41 PMplease let her know all extra labs are normal, it would be beneficial to see if she can quit or cut down on smoking and see if her wbc improves------Notes Recorded by Cat Brito RN on 04/06/2015 at 1:10 PMAll labs resulted from consult for elevated WBC on 04/02/15. Patient is seeing you again on 04/28/15, please advise if any changes are needed. Thanks. CE DISPATCHER Miscellaneous - 04/02/2015 11:59 PM CDTNotes Recorded by Keyla Camarillo RN on 04/21/2015 at 12:28 PMSpoke with patient and reviewed below results and recommendations. She states she has cut down smoking during the week, etc. She will see as scheduled next week. Note complete.------Notes Recorded by Keyla Camarillo RN on 04/14/2015 at 10:19 AMLVM for patient to call back to discuss labs and recommendations.------Notes Recorded by Keyla Camarillo RN on 04/07/2015 at 4:21 PMLVM for patient to call back to discuss.------Notes Recorded by Louisa Patino MD on 04/06/2015 at 4:41 PMplease let her know all extra labs are normal, it would be beneficial to see if she can quit or cut down on smoking and see if her wbc improves------Notes Recorded by Cat Brito RN on 04/06/2015 at 1:10 PMAll labs resulted from consult for elevated WBC on 04/02/15. Patient is seeing you again on 04/28/15, please advise if any changes are needed. Thanks. CE DISPATCHER [place] - 04/02/2015 11:59 PM CDTNotes Recorded by Keyla Camarillo RN on 04/21/2015 at 12:28 PMSpoke with patient and reviewed below results and recommendations. She states she has cut down smoking during the week, etc. She will see as scheduled next week. Note complete.------Notes Recorded by Keyla Camarillo RN on 04/14/2015 at 10:19 AMLVM for patient to call back to discuss labs and recommendations.------Notes Recorded by Keyla Camarillo RN on 04/07/2015 at 4:21 PMLVM for patient to call back to discuss.------Notes Recorded by Louisa Patino MD on 04/06/2015 at 4:41 PMplease let her know all extra labs are normal, it would be beneficial to see if she can quit or cut down on smoking and see if her wbc improves------Notes Recorded by Cat Brito RN on 04/06/2015 at 1:10 PMAll labs resulted from consult for elevated WBC on 04/02/15. Patient is seeing you again on 04/28/15, please advise if any changes are needed. Thanks. EETA Simon - 04/02/2015 11:59 PM CDTNotes Recorded by Keyla Camarillo RN on 04/21/2015 at 12:28 PMSpoke with patient and reviewed below results and recommendations. She states she has cut down smoking during the week, etc. She will see as scheduled next week. Note complete.------Notes Recorded by Keyla Camarillo RN on 04/14/2015 at 10:19 AMLVM for patient to call back to discuss labs and recommendations.------Notes Recorded by Keyla Camarillo RN on 04/07/2015 at 4:21 PMLVM for patient to call back to discuss.------Notes Recorded by Louisa Patino MD on 04/06/2015 at 4:41 PMplease let her know all extra labs are normal, it would be beneficial to see if she can quit or cut down on smoking and see if her wbc improves------Notes Recorded by Cat Brito RN on 04/06/2015 at 1:10 PMAll labs resulted from consult for elevated WBC on 04/02/15. Patient is seeing you again on 04/28/15, please advise if any changes are needed. Thanks. CE DISPATCHER [place] - 04/02/2015 11:59 PM CDTNotes Recorded by Keyla Camarillo RN on 04/21/2015 at 12:28 PMSpoke with patient and reviewed below results and recommendations. She states she has cut down smoking during the week, etc. She will see as scheduled next week. Note complete.------Notes Recorded by Keyla Camarillo RN on 04/14/2015 at 10:19 AMLVM for patient to call back to discuss labs and recommendations.------Notes Recorded by Keyla Camarillo RN on 04/07/2015 at 4:21 PMLVM for patient to call back to discuss.------Notes Recorded by Louisa Patino MD on 04/06/2015 at 4:41 PMplease let her know all extra labs are normal, it would be beneficial to see if she can quit or cut down on smoking and see if her wbc improves------Notes Recorded by Cat Brito RN on 04/06/2015 at 1:10 PMAll labs resulted from consult for elevated WBC on 04/02/15. Patient is seeing you again on 04/28/15, please advise if any changes are needed. Thanks. CE DISPATCHER documented in this encounter Plan of Treatment Upcoming Encounters Date Type Specialty Care Team Description 05/05/2022 Appointment Chemo Therapy/Infusion Services 09/15/2022 Telemedicine Gastroenterology Eusebio Haines MD [address] [place], [place] [address] (Wo rk) documented as of this encounter Procedures Procedure Name Priority Date/Time Associated Comments Diagnosis ONCOLOGY PROFILE Routine 04/02/2015 1:39 PM Elevated WBC count Results for this CDT procedure are i n the results section. PERIPHERAL BLOOD Routine 04/02/2015 1:39 PM Elevated WBC count Results for this SMEAR CDT procedure are i n the results section. TOTAL PROTEIN+ALB Routine 04/02/2015 1:39 PM Resu lts for this CDT procedure are i n the results section. COMPLETE BLOOD Routine 04/02/2015 1:39 PM Elevated WBC count R esults for this COUNT-W/DIFF CDT procedure are i n the results section. ELP, CASCADE, SERUM Routine 04/02/2015 1:39 PM Elevated WBC co unt Results for this CDT procedure are i n the results section. DIFFERENTIAL Routine 04/02/2015 1:39 PM Results f or this CDT procedure are i n the results section. FOLATE ONLY (4HR FAST Routine 04/02/2015 1:39 PM Elevated WBC count Results for this RECOMMENDED) CDT procedure are i n the results section. VITAMIN B12 ONLY Routine 04/02/2015 1:39 PM Elevated WBC count Results for this CDT procedure are i n the results section. ESR Routine 04/02/2015 1:39 PM Elevated WBC count Res ults for this CDT procedure are i n the results section. SURGICAL PATH, DONAL Routine 04/02/2015 12:48 Resu lts for this NICOLLET PM CDT procedure are i n the results section. documented in this encounter Results TOTAL PROTEIN+ALB (04/02/2015 1:39 PM CDT) athologist Signature Protein Total, 7.4 5.7 - 8.3 HP CONVERSION Serum g/dL Albumin 4.3 3.4 - 5.0 HP CONVERSION g/dL Globulin Serum 3.1 1.8 - 3.9 HP CONVERSION g/dL Specimen Anatomical Collection Method Collection Time Receive d Time (Source) Location / / Volume Laterality 04/02/2015 1:39 PM 5 1:44 CDT PM CDT Narrative HP CONVERSION - 04/02/2015 2:19 PM CDT Performed at [facility], [address] [place] [address] CLIA number [id number] Transcriptions 04/02/2015 11:59 PM CDTNotes Recorded by Keyla Camarillo RN on 04/21/2015 at 12:28 PMSpoke with patient and reviewed below results and recommendations. She states she has cut down smokin g during the week, etc. She will see Dr. Patino as scheduled next week. Note complete.------Notes Recorded by Keyla Camarillo RN on 04/14/2015 at 10:19 AMLVM for patient to call back to discuss labs and recommendations.------ Notes Recorded by Keyla Camarillo RN o n 04/07/2015 at 4:21 PMLVM for patient to call back to discuss.------Notes Recorded by Louisa Patino MD on 04/06/2015 at 4:41 PM please let her know all extra labs are n ormal, it would be beneficial to see if she can quit or cut down on smoking and see if her wbc improves------Notes Recorded by Cat Brito RN on 04/06/2015 at 1:10 PM All labs resulted from consult for kalin moore WBC on 04/02/15. Patient is seeing you again on 04/28/15, please advise if any changes are needed. Thanks. Louisa Patino MD LAB_1 Performing Organization Address City/State/ZIP Code Phon e Number HP CONVERSION (ABNORMAL) Differential (04/02/2015 1:39 PM CDT) [facility] Method Time Signature Absolute 10.2 (H) 1.8 - 8.0 HP CONVERSION Neutrophils k/cmm Absolute 5.1 (H) 1.1 - 4.0 HP CONVERSION Lymphocytes k/cmm Absolute 0.5 0.2 - 0.8 HP CONVERSION Monocytes k/cmm Absolute 0.2 0.0 - 0.5 HP CONVERSION Eosinophils k/cmm Absolute 0.0 0.0 - 0.2 HP CONVERSION Basophils k/cmm Immature 0.2 0.0 - 0.5 HP CONVERSION Granulocytes % RBC Morphology Normal HP CONVERSION Platelet Normal HP CONVERSION Estimate Specimen Anatomical Collection Method Collection Time Receive d Time (Source) Location / / Volume Laterality 04/02/2015 1:39 PM 5 1:44 CDT PM CDT Narrative HP CONVERSION - 04/02/2015 3:23 PM CDT Performed at [facility], [address] [place] [address] CLIA number [id number] Transcriptions 04/02/2015 11:59 PM CDTNotes Recorded by Keyla Camarillo RN on 04/21/2015 at 12:28 PMSpoke with patient and reviewed below results and recommendations. She states she has cut down smokin g during the week, etc. She will see Dr. Patino as scheduled next week. Note complete.------Notes Recorded by Keyla Camarillo RN on 04/14/2015 at 10:19 [facility] for patient to call back to discuss labs and recommendations.------ Notes Recorded by Keyla Camarillo RN o n 04/07/2015 at 4:21 PMLVM for patient to call back to discuss.------Notes Recorded by Louisa Patino MD on 04/06/2015 at 4:41 PM please let her know all extra labs are n ormal, it would be beneficial to see if she can quit or cut down on smoking and see if her wbc improves------Notes Recorded by Cat Brito RN on 04/06/2015 at 1:10 PM All labs resulted from consult for kalin moore WBC on 04/02/15. Patient is seeing you again on 04/28/15, please advise if any changes are needed. Thanks. Louisa Patino MD LAB_1 Performing Organization Address City/State/ZIP Code Phon e Number HP CONVERSION Folate Only (4Hr Fast Recommended) (04/02/2015 1:39 PM CDT) athologist Signature Serum Folate 22.3 >5.9 ng/mL HP CONVERSION Specimen Anatomical Collection Method Collection Time Receive d Time (Source) Location / / Volume Laterality 04/02/2015 1:39 PM 5 1:44 CDT PM CDT Narrative HP CONVERSION - 04/02/2015 2:19 [place] [address] CLIA number [id number] Transcriptions 04/02/2015 11:59 PM CDTNotes Recorded by Keyla Camarillo RN on 04/21/2015 at 12:28 PMSpoke with patient and reviewed below results and recommendations. She states she has cut down smokin g during the week, etc. She will see Dr. Patino as scheduled next week. Note complete.------Notes Recorded by Keyla Camarillo RN on 04/14/2015 at 10:19 AMLVM for patient to call back to discuss labs and recommendations.------ Notes Recorded by Keyla Camarillo RN o n 04/07/2015 at 4:21 PMLVM for patient to call back to discuss.------Notes Recorded by Louisa Patino MD on 04/06/2015 at 4:41 PM please let her know all extra labs are n ormal, it would be beneficial to see if she can quit or cut down on smoking and see if her wbc improves------Notes Recorded by Cat Brito RN on 04/06/2015 at 1:10 PM All labs resulted from consult for kalin moore WBC on 04/02/15. Patient is seeing you again on 04/28/15, please advise if any changes are needed. Thanks. Louisa Patino MD LAB_1 Performing Organization Address City/State/ZIP Code Phon e Number HP CONVERSION B12 Only (04/02/2015 1:39 PM CDT) athologist Signature Vitamin B12 [phone] HP CONVERSION pg/dL Specimen Anatomical Collection Method Collection Time Receive d Time (Source) Location / / Volume Laterality 04/02/2015 1:39 PM 5 1:44 CDT PM CDT Narrative HP CONVERSION - 04/02/2015 2:19 PM CDT Performed at [facility], [facility] [place] [address] CLIA number [id number] Transcriptions 04/02/2015 11:59 PM CDTNotes Recorded by Keyla Camarillo RN on 04/21/2015 at 12:28 PMSpoke with patient and reviewed below results and recommendations. She states she has cut down smokin g during the week, etc. She will see Dr. Patino as scheduled next week. Note complete.------Notes Recorded by Keyla Camarillo RN on 04/14/2015 at 10:19 [facility] for patient to call back to discuss labs and recommendations.------ Notes Recorded by Keyla Camarillo RN o n 04/07/2015 at 4:21 [facility] for patient to call back to discuss.------Notes Recorded by Louisa Patino MD on 04/06/2015 at 4:41 PM please let her know all extra labs are n ormal, it would be beneficial to see if she can quit or cut down on smoking and see if her wbc improves------Notes Recorded by Cat Brito RN on 04/06/2015 at 1:10 PM All labs resulted from consult for kalin moore WBC on 04/02/15. Patient is seeing you again on 04/28/15, please advise if any changes are needed. Thanks. Louisa Patino MD LAB_1 Performing Organization Address City/State/ZIP Code Phon e Number HP CONVERSION ELP, Reform, Serum (04/02/2015 1:39 PM CDT) Analysis Performed At Patho logist Time Signature Total Protein, 7.4 g/dL HP CONVERSION Serum ELP Albumin, Serum 4.1 3.4 - 5.0 HP CONVERSION ELP g/dL Cnqkg-4-Tbrmhb 0.3 0.1 - 0.4 HP CONVERSION in g/dL Kspmx-2-Abefbi 0.8 0.3 - 1.1 HP CONVERSION in g/dL Beta Globulin 1.2 0.5 - 1.2 HP CONVERSION g/dL Gamma Globulin 1.0 0.6 - 1.4 HP CONVERSION g/dL S ELP Interp See Note HP CONVERSION Comment: Normal electrophoretic pattern. DAG Specimen Anatomical Collection Method Collection Time Receive d Time (Source) Location / / Volume Laterality 04/02/2015 1:39 PM 5 1:44 CDT PM CDT Narrative HP CONVERSION - 04/06/2015 12:57 [place] [address] CLIA number [id number] Transcriptions 04/02/2015 11:59 PM CDTNotes Recorded by Keyla Camarillo RN on 04/21/2015 at 12:28 PMSpoke with patient and reviewed below results and recommendations. She states she has cut down smokin g during the week, etc. She will see Dr. Patino as scheduled next week. Note complete.------Notes Recorded by Keyla Camarillo RN on 04/14/2015 at 10:19 AML for patient to call back to discuss labs and recommendations.------ Notes Recorded by Keyla Camarillo RN o n 04/07/2015 at 4:21 PMLVM for patient to call back to discuss.------Notes Recorded by Louisa Patino MD on 04/06/2015 at 4:41 PM please let her know all extra labs are n ormal, it would be beneficial to see if she can quit or cut down on smoking and see if her wbc improves------Notes Recorded by Cat Brito RN on 04/06/2015 at 1:10 PM All labs resulted from consult for kalin teresa WBC on 04/02/15. Patient is seeing you again on 04/28/15, please advise if any changes are needed. Thanks. Louisa Patino MD LAB_1 Performing Organization Address City/State/ZIP Code Phon e Number HP CONVERSION ESR (04/02/2015 1:39 PM CDT) [facility] Method Time Signature Sedimentation Rate 19 0 - 20 HP CONVERSI ON mm/hr Specimen Anatomical Collection Method Collection Time Receive d Time (Source) Location / / Volume Laterality 04/02/2015 1:39 PM 5 1:44 CDT PM CDT Narrative HP CONVERSION - 04/02/2015 2:25 PM CDT Performed at [facility], [facility] [place] [address] CLIA number [id number] Transcriptions 04/02/2015 11:59 PM CDTNotes Recorded by Keyla Camarillo RN on 04/21/2015 at 12:28 PMSpoke with patient and reviewed below results and recommendations. She states she has cut down smokin g during the week, etc. She will see Dr. Patino as scheduled next week. Note complete.------Notes Recorded by Keyla Camarillo RN on 04/14/2015 at 10:19 [facility] for patient to call back to discuss labs and recommendations.------ Notes Recorded by Keyla Camarillo RN o n 04/07/2015 at 4:21 PMLVM for patient to call back to discuss.------Notes Recorded by Louisa Patino MD on 04/06/2015 at 4:41 PM please let her know all extra labs are n ormal, it would be beneficial to see if she can quit or cut down on smoking and see if her wbc improves------Notes Recorded by Cat Brito RN on 04/06/2015 at 1:10 PM All labs resulted from consult for eleva teresa WBC on 04/02/15. Patient is seeing you again on 04/28/15, please advise if any changes are needed. Thanks. Louisa Patino MD LAB_1 Performing Organization Address City/[facility] Phon e Number HP CONVERSION PERIPHERAL BLOOD SMEAR (04/02/2015 1:39 PM CDT) athologist Signature Peripheral Done HP CONVERSION Blood Smear Specimen Anatomical Collection Method Collection Time Receive d Time (Source) Location / / Volume Laterality 04/02/2015 1:39 PM 5 1:44 CDT PM CDT Narrative HP CONVERSION - 04/04/2015 6:33 AM CDT Performed at [place] [id number] [place] [address] CLIA number [id number] Transcriptions 04/02/2015 11:59 PM CDTNotes Recorded by Keyla Camarillo RN on 04/21/2015 at 12:28 PMSpoke with patient and reviewed below results and recommendations. She states she has cut down smokin g during the week, etc. She will see Dr. Patino as scheduled next week. Note complete.------Notes Recorded by Keyla Camarillo RN on 04/14/2015 at 10:19 AML for patient to call back to discuss labs and recommendations.------ Notes Recorded by Keyla Camarillo RN o n 04/07/2015 at 4:21 PMLVM for patient to call back to discuss.------Notes Recorded by Louisa Patino MD on 04/06/2015 at 4:41 PM please let her know all extra labs are n ormal, it would be beneficial to see if she can quit or cut down on smoking and see if her wbc improves------Notes Recorded by Cat Brito RN on 04/06/2015 at 1:10 PM All labs resulted from consult for eleva teresa WBC on 04/02/15. Patient is seeing you again on 04/28/15, please advise if any changes are needed. Thanks. Louisa Patino MD LAB_1 Performing Organization Address City/[facility]/ZIP Code Phon e Number HP CONVERSION ONCOLOGY PROFILE (04/02/2015 1:39 PM CDT) [facility] gist Method Time Signature Aspartate 33 0 - 45 HP CONVERSION Aminotransferase U/L Alk Phos 99 25 - 135 HP CONVERSION U/L Bilirubin Total 0.4 0.2 - 1.2 HP CONVERSION mg/dL Calcium 9.7 8.5 - HP CONVERSION 10.5 mg/dL Creatinine Serum 0.7 0.4 - 1.3 HP CONVERSION mg/dL Est GFR Am >60 >60 HP CONVERSI ON mL/min/1. 73m2 Est GFR Non-Afr Am >60 >60 HP CONVERSI ON mL/min/1. 73m2 Comment: Normal>60, moderate decrease 30 - 59, se nay decrease 15 - 29, renal failure <15 mL/min/1.73 m2 NOTE: ??Choose the eGFR result above kenia ropriate for the race of the patient. Specimen Anatomical Collection Method Collection Time Receive d Time (Source) Location / / Volume Laterality 04/02/2015 1:39 PM 5 1:44 CDT PM CDT Narrative HP CONVERSION - 04/02/2015 2:19 PM CDT Performed at [facility], [address] [place] [address] CLIA number [id number] Transcriptions 04/02/2015 11:59 PM CDTNotes Recorded by Keyla Camarillo RN on 04/21/2015 at 12:28 PMSpoke with patient and reviewed below results and recommendations. She states she has cut down smokin g during the week, etc. She will see Dr. Patino as scheduled next week. Note complete.------Notes Recorded by Keyla Camarillo RN on 04/14/2015 at 10:19 AML for patient to call back to discuss labs and recommendations.------ Notes Recorded by Keyla Camarillo RN o n 04/07/2015 at 4:21 PMLVM for patient to call back to discuss.------Notes Recorded by Louisa Patino MD on 04/06/2015 at 4:41 PM please let her know all extra labs are n ormal, it would be beneficial to see if she can quit or cut down on smoking and see if her wbc improves------Notes Recorded by aCt Brito RN on 04/06/2015 at 1:10 PM All labs resulted from consult for kalin moore WBC on 04/02/15. Patient is seeing you again on 04/28/15, please advise if any changes are needed. Thanks. Louisa Patino MD LAB_1 Performing Organization Address City/State/ZIP Code Phon e Number HP CONVERSION (ABNORMAL) Complete Blood Count W/Diff (04/02/2015 1:39 PM CDT) [facility] Method Time Signature White Blood Cell 16.1 (H) 3.8 - HP CONVERSION Count 11.0 k/cmm Red Blood Cell 4.46 3.70 - HP CONVERSION Count 5.20 m/cmm Hemoglobin 14.2 11.8 - HP CONVERSION 15.5 g/dL Hematocrit 41.7 35.0 - HP CONVERSION 46.0 % Mean Corpuscular 93.5 80.0 - HP CONVERSION Volume 100.0 fL RDW 13.7 11.0 - HP CONVERSION 15.0 % Platelet Count 335 140 - 450 HP CONVERSION k/cmm Specimen Anatomical Collection Method Collection Time Receive d Time (Source) Location / / Volume Laterality 04/02/2015 1:39 PM 5 1:44 CDT PM CDT Narrative HP CONVERSION - 04/02/2015 1:48 PM CDT Performed at [facility], [address] [place] [address] CLIA number [id number] Transcriptions 04/02/2015 11:59 PM CDTNotes Recorded by Keyla Camarillo RN on 04/21/2015 at 12:28 PMSpoke with patient and reviewed below results and recommendations. She states she has cut down smokin g during the week, etc. She will see Dr. Patino as scheduled next week. Note complete.------Notes Recorded by Keyla Camarillo RN on 04/14/2015 at 10:19 AML for patient to call back to discuss labs and recommendations.------ Notes Recorded by Keyla Camarillo RN o n 04/07/2015 at 4:21 PMLVM for patient to call back to discuss.------Notes Recorded by Louisa Patino MD on 04/06/2015 at 4:41 PM please let her know all extra labs are n ormal, it would be beneficial to see if she can quit or cut down on smoking and see if her wbc improves------Notes Recorded by Cat Brito RN on 04/06/2015 at 1:10 PM All labs resulted from consult for kalin moore WBC on 04/02/15. Patient is seeing you again on 04/28/15, please advise if any changes are needed. Thanks. Louisa Patino MD LAB_1 Performing Organization Address City/State/ZIP Code Phon e Number HP CONVERSION Pathology Report (04/02/2015 12:48 PM CDT) Specimen (Source) Anatomical Collection Method Collection Time Re ceived Time Location / / Volume Laterality 04/02/2015 12:48 PM CDT Narrative HP CONVERSION - 04/05/2015 12:07 PM CDT ?FINAL PERIPHERAL BLOOD SMEAR MORPHOLOGY Pathology #: [id number] ?Date Obtained: 04/02/2015 ? Date Received: 04/04/2015 DIAGNOSIS: Peripheral Blood Smear: ??- Mild leukocytosis with mild absolut e neutrophilia and lymphocytosis ?? (see note). Note: The leukocytosis is most likely r eactive. Clinical correlation is recommended. ? CHONG PALACIO MD ? (electronic signature) ? 04/05/2015 ??11:57 CLINICAL HISTORY: ? The patient is a 39-year-old fema le with leukocytosis. HEMATOLOGIC PARAMETERS: ? WBC ?15.9 ??k/cmm ? RBC ?4.45 ??m/cmm ? HGB ?14.1 ??gm/dl ? MCV ?93.3 ??fl ? MCHC ? 34.0 ??gm/dl ? RDW ?13.9 ??% ? PLT ? 359 ??k/cmm DIFFERENTIAL (auto absolute counts): ? Neutrophils ?10.0 ??k/cmm ? Lymphocytes ? 5.1 ??k/cmm ? Monocytes ? 0.4 ??k/cmm ? Eosinophils ? 0.2 ??k/cmm ? Basophils ? 0.0 ??k/cmm ERYTHROCYTES: ?? The erythrocytes are normal in numbe r and are normochromic, ?? normocytic. ??There is no increase i n rouleaux formation. ??There is ?? no increase in polychromasia. ??Ther e is no anisocytosis and no ?? poikilocytosis. PLATELETS: ?? Platelets are normal in total number and are morphologically ?? unremarkable. TOTAL LEUKOCYTES: ?? The leukocytes are mildly increased in total number. Neutrophils are ?? mildly increased in absolute number and are morphologically ?? unremarkable. Lymphocytes are mildly increased in absolute number ?? and are morphologically unremarkable . ??Monocytes are normal in ?? absolute number and are morphologica lly unremarkable. ?CPS ??CPS CPT Codes: ?55679 x 1 ? End of Report Performed at [facility], [address] [place] [address] Transcriptions 04/02/2015 11:59 PM CDTNotes Recorded by Keyla Camarillo RN on 04/21/2015 at 12:28 PMSpoke with patient and reviewed below results and recommendations. She states she has cut down smokin g during the week, etc. She will see Dr. Patino as scheduled next week. Note complete.------Notes Recorded by Keyla Camarillo RN on 04/14/2015 at 10:19 [facility] for patient to call back to discuss labs and recommendations.------ Notes Recorded by Keyla Camarillo RN o n 04/07/2015 at 4:21 [facility] for patient to call back to discuss.------Notes Recorded by Louisa Patino MD on 04/06/2015 at 4:41 PM please let her know all extra labs are n ormal, it would be beneficial to see if she can quit or cut down on smoking and see if her wbc improves------Notes Recorded by Cat Brito RN on 04/06/2015 at 1:10 PM All labs resulted from consult for kalin moore WBC on 04/02/15. Patient is seeing you again on 04/28/15, please advise if any changes are needed. Thanks. Louisa Patino MD LAB_1 Performing Organization Address City/State/ZIP Code Phon e Number HP CONVERSION documented in this encounter Visit Diagnoses Diagnosis Elevated WBC count (HRC) Leukocytosis, unspecified documented in this encounter Care Teams Director It Relationship Specialty Start Date End Date Kinga Pickett APRN, OIL WELL GUN PERFORATOR OPERATOR PCP - General 03/15/15 07/04/16 [address] [place] [address] documented as of this encounter
--- OUTSIDE RECORDS SUMMARY | 2022-03-20 16:16 | XMS_ITS | Encounter Summary ---
:1975 Author Organization [employer] Address [address] [address] Care Team Providers Name Role Phone Munira Combs PA-C Primary Care Provider Reason for Visit Reason Comments Refill Encounter Details Date Type Department Care Team Description 04/30/2014 Refill [facility] Rebecca Knox MD Refill [address] [place] [address] [place] [address] [phone] (Wo rk) Social History Tobacco Use Types Packs/Day Years Used Date Smoking Tobacco: Never Assessed Sex Assigned at Date Recorded Female 05/09/2021 7:19 PM HEAVY MEDIA OPERATOR documented as of this encounter Nursing Notes Yaima Lundberg MD - 05/01/2014 10:49 AM CST sent, my chart message to have nurse BP check. Y MEDIA OPERATOR Myranda Cochran RN - 05/01/2014 10:14 AM CST DOES NOT MEET REQUIREMENTS FOR REFILL Reason: Needs PCP approval, pt was to come in for BP check per previous phone note on 03/02/14, no f/udone. Also needs updated sig as patient reports taking continuously. Last visit with PCP: 08/25/13 with AMS Requested Prescriptions Pending Prescriptions Disp Refills ??? norethindrone-ethinyl estradiol (NECON 1/35, 28,) 1-35 mg-mcg per tablet 112 tablet 0 Sig: Take 1 tablet by mouth daily (every 24 hours). Patient takes continously Y MEDIA OPERATOR Myranda Cochran RN - 05/01/2014 10:09 AM HEAVY MEDIA OPERATOR From: Idania Duarte To: PATTI Perez Sent: 04/30/2014 9:53 PM HEAVY MEDIA OPERATOR Subject: Medication Renewal Request Original authorizing provider: PATTI Perez would like a refill of the following medications: norethindrone-ethinyl estradiol (NECON 1/35, 28,) 1-35 mg-mcg per tablet [PATTI Perez] Preferred pharmacy: [address] Comment: I have been taking the control continuously for 3 months then a week break. I have about a week left of the 84 tables I filled in feb. Can I please have a refill for 112 tablets for a 84 day supply sent to [facility] in [place]. I do not think I am due for a yearly exam until August? Thank you documented in this encounter Miscellaneous Notes Refill (Converted) - Westley, Gary Provider - 05/01/2014 10:48 AM HEAVY MEDIA OPERATOR RE: Medication Renewal Request From User: YAIMA LUNDBERG had wanted you to have a nurse blood pressure check to be sure the OCP is safe for you - I would like you to stop into the clinic during business hours for a nurse check. You are right, you will be due for a visit in August. I did send your refills. ----- Message ----- From: IDANIA DUARTE Sent: 04/30/2014 9:53 PM HEAVY MEDIA OPERATOR To: PATTI Perez Subject: Medication Renewal Request Original authorizing provider: PATTI Perez Idania Duarte would like a refill of the following medications: norethindrone-ethinyl estradiol (NECON , ,) 1-35 mg-mcg per tablet [PATTI Perez] Preferred pharmacy: [facility] [address] [place] [address] [address] Comment: I have been taking the control continuously for 3 months then a week break. I have about a week left of the 84 tables I filled in feb. Can I please have a refill for 112 tablets for a [address] [facility] in [place]. I do not think I am due for a yearly exam until August? Thank you Y MEDIA OPERATOR documented in this encounter Plan of Treatment Upcoming Encounters Date Type Specialty Care Team Description 05/05/2022 Appointment Chemo Therapy/Infusion Services 09/15/2022 Telemedicine Gastroenterology Eusebio Haines MD [address] [place] [address] (Wo rk) documented as of this encounter Visit Diagnoses Not on filedocumented in this encounter Care Teams Automotive Exhaust Emissions Technician Relationship Specialty Start Date End Date Munira Combs PA-C PCP - General 09/25/10 03/14/15 [address] [place], [place] [id number] documented as of this encounter
--- OUTSIDE RECORDS SUMMARY | 2022-03-20 16:16 | XMS_ITS | Encounter Summary ---
:1975 Author Organization [employer] Address [address], [place] [address] Care Team Providers Name Role Phone Munira Combs PA-C Primary Care Provider Reason for Visit Reason Comments Refill Encounter Details Date Type Department Care Team Description 08/26/2014 Refill [facility] Munira Falcon PA-C Refill [address] [employer] [address] [place] [address] [place] [address] (Wo rk) Social History Tobacco Use Types Packs/Day Years Used Date Smoking Tobacco: Never Assessed Sex Assigned at Date Recorded Female 05/09/2021 7:19 PM PROCESSING ASSOCIATE documented as of this encounter Nursing Notes UserBryan - 08/27/2014 9:32 AM CST triamterene-hydrochlorothiazide (MAXZIDE-25) 37.5-25 mg per tablet - WARNING #1: Validate ordering provider. - WARNING #2: This medication may not have been authorized by the requested provider. - VIOLATION: A qualifying visit was not found within the last 2 years of the patient record. - LAST QUALIFYING VISIT: None (A recent visit in family medicine was found) - NEXT SCHEDULED VISIT: None - MEDICATION STARTED: 07/04/2010 - LAST REFILLED ON: 08/25/2013, QTY: 90, Refills: 4, Sig: take 1 tablet by mouth daily (every 24 hours). (unchanged) - Cr: 0.7mg/dL on 08/25/2013 - Na: 140.0mEq/L on 08/25/2013 - K: 3.9mEq/L on 08/25/2013 Powered by [facility], Reference: [id number], 08/26/2014 3:45:35 PM PROCESSING ASSOCIATE, Pool: LIRIANO FP REFILL ([id number]) User, Antwanash - 08/27/2014 9:32 AM CST The following lab order(s) may be associated with the following Patient Result Comment (Entered by Munira Combs at 08/26/2013 11:45 AM): LAB CREATININE These look great. UserBryan - 08/27/2014 9:32 AM CST The following lab order(s) may be associated with the following Patient Result Comment (Entered by Munira Combs at 08/26/2013 11:45 AM): LAB ELECTROLYTES (NA, K, CL, BICARB) These look great. Talita Bassett - 08/27/2014 9:32 AM CST Appointment letter sent Rufina Cleary RN - 08/26/2014 4:09 PM CST Renewed medication per medication refill protocol. Requested Prescriptions Signed Prescriptions Disp Refills ??? triamterene-hydrochlorothiazide (MAXZIDE-25) 37.5-25 mg per tablet 90 tablet 0 Sig: Take 1 tablet by mouth daily (every 24 hours). Authorizing Provider: DOMENICA COHN Ordering User: RUFINA CLEARY REFILL APPOINTMENT NEEDED Please send letter to patient regarding need to schedule an appointment within 30 days. Medication has been renewed and sent to pharmacy for a 90 day supply. Comment: Patient needs to schedule a qualifying visit prior to further refills. ESSING ASSOCIATE Indira Jones - 08/26/2014 3:45 PM CST Pt is out of requested mediation(s). Please send approved refill OSMANY, if appropriate. documented in this encounter Miscellaneous Notes Letter - Talita Bassett - 08/26/2014 12:00 AM CST Images from the original note were not included. [place] [address] [place] [address] Idania Duarte [address] [facility] [address] August 27, 2014 Dear Idania Duarte, We received your request for the following prescription(s): Orders Placed This Encounter Medications ??? triamterene-hydrochlorothiazide (MAXZIDE-25) 37.5-25 mg per tablet Sig: Take 1 tablet by mouth daily (every 24 hours). Dispense: 90 tablet Refill: 0 Your request was approved. You will need an appointment with your provider before your next refill. Please call [facility] at [phone] to schedule an appointment within 30 days. Thank you for choosing [facility] for your health care needs. Your [facility] Primary Care Team ESSING ASSOCIATE documented in this encounter Plan of Treatment Upcoming Encounters Date Type Specialty Care Team Description 05/05/2022 Appointment Chemo Therapy/Infusion Services 09/15/2022 Telemedicine Gastroenterology Eusebio Haines MD [address] [place] [address] (Wo rk) documented as of this encounter Visit Diagnoses Diagnosis HTN (hypertension) (HRC) - Primary Unspecified essential hypertension documented in this encounter Care Teams Architecture Intern Relationship Specialty Start Date End Date Munira Combs PA-C PCP - General 09/25/10 03/14/15 [address] [place], [place] [id number] documented as of this encounter
--- OUTSIDE RECORDS SUMMARY | 2022-03-20 16:16 | XMS_ITS | Encounter Summary ---
:1975 Author Organization [employer] Address [address] [address] Care Team Providers Name Role Phone Munira Combs PA-C Primary Care Provider Reason for Visit Reason Comments Refill Encounter Details Date Type Department Care Team Description 01/20/2015 Refill [facility] Medicin e Ene Sue PA-C Refill [address] [place] [address] [place], [place] [id number] (Wo rk) Social History Tobacco Use Types Packs/Day Years Used Date Smoking Tobacco: Never Assessed Sex Assigned at Date Recorded Female 05/09/2021 7:19 PM FAMILY RESOURCE SPECIALIST documented as of this encounter Nursing Notes Sindy Duron LPN - 01/21/2015 4:06 PM CDT Rx to pharm Ene Sue PA-C - 01/21/2015 3:52 PM CDT printed Briana Puri RN - 01/21/2015 3:42 PM CDT From: Idania Duarte To: Ene Sue PA-C Sent: 01/20/2015 10:02 AM CDT Subject: Medication Renewal Request Original authorizing provider: MAVIS Katz would like a refill of the following medications: LORazepam (ATIVAN) 0.5 mg tablet [Ene Sue PA-C] Preferred pharmacy: [facility] [employer] Comment: Can I try a higher dose for night time, my is going to be gone for 5 days and night time isjust aweful and I think I need something stronger. documented in this encounter Miscellaneous Notes Refill (Converted) - Gary Christy Provider - 01/21/2015 3:52 PM CDT RE: Medication Renewal Request From User: ENE SUE, I printed another rx. It is fine to take 2 at night if you need to. Ene ----- Message ----- From: IDANIA UDARTE Sent: 01/20/2015 10:02 AM CDT To: Ene Sue PA-C Subject: Medication Renewal Request Original authorizing provider: MAVIS Katz would like a refill of the following medications: LORazepam (ATIVAN) 0.5 mg tablet [Ene Sue PA-C] Preferred pharmacy: [facility] [employer] Comment: Can I try a higher dose for night time, my is going to be gone for 5 days and night time is just aweful and I think I need something stronger. LY RESOURCE SPECIALIST documented in this encounter Plan of Treatment Upcoming Encounters Date Type Specialty Care Team Description 05/05/2022 Appointment Chemo Therapy/Infusion Services 09/15/2022 Telemedicine Gastroenterology Eusebio Haines MD [address] [place] [address] (Wo rk) documented as of this encounter Visit Diagnoses Diagnosis JANNET (generalized anxiety disorder) (HRC) Generalized anxiety disorder Situational stress (HRC) Other psychological or physical stress, not elsewhere classified documented in this encounter Care Teams Integrated Circuit Ic Layout Designer Relationship Specialty Start Date End Date Munira Combs PA-C PCP - General 09/25/10 03/14/15 [address] [place] [address] documented as of this encounter
--- OUTSIDE RECORDS SUMMARY | 2022-03-20 16:16 | XMS_ITS | Encounter Summary ---
:1975 Author Organization [employer] Address [address], [place] [address] Care Team Providers Name Role Phone Hoang Peacock APRN, CNP Primary Care Provider [phone] Reason for Visit Reason Comments Refill Appt. Needed Encounter Details Date Type Department Care Team Description 05/26/2015 Refill [facility] [address] Hoang Peacock, Re fill; Appt. Needed Family Medicine [facility] [address] [place] [place] [address] [address] [place], [place] [phone] (Wo rk) Social History Tobacco Use Types Packs/Day Years Used Date Smoking Tobacco: Never Assessed Sex Assigned at Date Recorded Female 05/09/2021 7:19 PM ASH COLLECTOR documented as of this encounter Nursing Notes Key Avila - 06/01/2015 9:08 AM CST Appointment Reminder Card Sent. COLLECTOR User, Bryan - 06/01/2015 9:08 AM CST LORazepam (ATIVAN) 0.5 mg tablet - MEDICATION STARTED: 01/18/2015 - LAST REFILLED: 29 DAYS AGO ON 04/27/2015, QTY: 30, Refills: 0, Sig: take 1 tablet by mouth every 6hours as needed for anxiety. (unchanged) - NOTIFICATION: Medication is not assigned to a protocol. - LAST QUALIFYING VISIT WITH HOANG PEACOCK: 03/24/2015 - NEXT SCHEDULED VISIT: None Powered by [employer], Reference: [id number], 05/26/2015 9:15:35 AM ASH COLLECTOR, Pool: [id number] REFILL ([id number]) Siria River - 05/31/2015 10:16 AM CST Left a message to call for an appointment. Мария Valderrama MA - 05/26/2015 4:39 PM CST routed to frontline to schedule Hoang Hidalgo APRN, SIERRA - 05/26/2015 9:31 AM CST Needs to be seen here to address her anxiety if I am going to refill. Ivette Gordillo CMA - 05/26/2015 9:14 AM CST Received a fax from 's pharmacy, in regards to LORazepam (ATIVAN) 0.5 mg tablet, with the following message: Med is being used for anxiety. Finalization of divorce. Patient is working at [employer] and has not seen an MD here yet. Please advise, thank you. COLLECTOR documented in this encounter Plan of Treatment Upcoming Encounters Date Type Specialty Care Team Description 05/05/2022 Appointment Chemo Therapy/Infusion Services 09/15/2022 Telemedicine Gastroenterology Eusebio Haines MD [address] [place], [place] [address] (Wo rk) documented as of this encounter Visit Diagnoses Diagnosis JANNET (generalized anxiety disorder) (HRC) - Primary Generalized anxiety disorder Situational stress (HRC) Other psychological or physical stress, not elsewhere classified documented in this encounter Care Teams Grocery Associate Relationship Specialty Start Date End Date Hoang Peacock, JOB INTERVIEWER, TOOTH CUTTER PCP - General 03/15/15 07/04/16 [address] [place] [address] documented as of this encounter
--- OUTSIDE RECORDS SUMMARY | 2022-03-20 16:16 | XMS_ITS | Encounter Summary ---
:1975 Author Organization [employer] Address [address], [place] [address] Care Team Providers Name Role Phone Munira Combs PA-C Primary Care Provider Encounter Details Date Type Department Care Team Description 08/25/2013 Lab Visit [facility] Screening for diabetes ryder esparza; [address] [facility] Screening cholesterol level; [place] [address] Annual physical exam; [phone] Screening for o ther and unspecified deficiency anemia; HTN (hypertensi on) Social History Tobacco Use Types Packs/Day Years Used Date Smoking Tobacco: Never Assessed Sex Assigned at Date Recorded Female 05/09/2021 7:19 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 LIPID PANEL AND Routine 08/25/2013 2:11 PM Screening Result s for this DIRECT LDL(IF UKRAINIAN FOLK ARTS INSTRUCTOR cholesterol level procedure are in NEEDED) the results section. VITAMIN D Routine 08/25/2013 2:11 PM Annual physical exam R esults for this 25-HYDROXY, TOTAL UKRAINIAN FOLK ARTS INSTRUCTOR procedure are in the results section. CREATININE / GFR Routine 08/25/2013 2:11 PM HTN (hypertension) Results for this UKRAINIAN FOLK ARTS INSTRUCTOR procedure are i n the results section. HEMOGLOBIN, BLOOD Routine 08/25/2013 2:11 PM Screening for oth er Results for this UKRAINIAN FOLK ARTS INSTRUCTOR and unspecified procedure ar e in deficiency anemia the result s section. ELECTROLYTE PANEL Routine 08/25/2013 2:11 PM HTN (hypertension ) Results for this UKRAINIAN FOLK ARTS INSTRUCTOR procedure are i n the results section. documented in this encounter Results Electrolyte Panel (08/25/2013 2:11 PM UKRAINIAN FOLK ARTS INSTRUCTOR) athologist Signature Sodium 140 137 - 147 HP CONVERSION Potassium 3.9 3.5 - 5.2 HP CONVERSION Chloride 109 98 - 110 HP CONVERSION Bicarbonate 25 23 - 33 HP CONVERSION mmol/L Specimen Anatomical Collection Method Collection Time Receive d Time (Source) Location / / Volume Laterality 08/25/2013 2:11 PM 4 2:11 UKRAINIAN FOLK ARTS INSTRUCTOR PM UKRAINIAN FOLK ARTS INSTRUCTOR Narrative HP CONVERSION - 08/25/2013 3:41 PM UKRAINIAN FOLK ARTS INSTRUCTOR [place] [address] Munira Combs PA-C LAB_1 Performing Organization Address [facility] Phon e Number HP CONVERSION Creatinine / GFR (08/25/2013 2:11 PM UKRAINIAN FOLK ARTS INSTRUCTOR) athologist Signature Creatinine 0.7 0.4 - 1.3 HP CONVERSION Serum mg/dL Est GFR >60 >60 HP CONVERSION Am Est GFR Non-Afr >60 >60 HP CONVERSION Am Comment: Normal>60, moderate decrease 30 - 59, se nay decrease 15 - 29, renal failure <15 mL/min/1.73 m2 NOTE: ??Choose the eGFR result above kenia ropriate for the race of the patient. Specimen Anatomical Collection Method Collection Time Receive d Time (Source) Location / / Volume Laterality 08/25/2013 2:11 PM 4 2:11 UKRAINIAN FOLK ARTS INSTRUCTOR PM UKRAINIAN FOLK ARTS INSTRUCTOR Narrative HP CONVERSION - 08/25/2013 3:41 PM UKRAINIAN FOLK ARTS INSTRUCTOR Performed at [facility], [address] [place] [address] Munira Combs PA-C LAB_1 Performing Organization Address [facility] Phon e Number HP CONVERSION Hemoglobin, Blood (08/25/2013 2:11 PM UKRAINIAN FOLK ARTS INSTRUCTOR) athologist Signature Hemoglobin 14.0 11.8 - 15.5 HP CONVERSION g/dL Specimen Anatomical Collection Method Collection Time Receive d Time (Source) Location / / Volume Laterality 08/25/2013 2:11 PM 4 2:11 UKRAINIAN FOLK ARTS INSTRUCTOR PM UKRAINIAN FOLK ARTS INSTRUCTOR Narrative HP CONVERSION - 08/25/2013 2:26 PM UKRAINIAN FOLK ARTS INSTRUCTOR Performed at [facility], [address] [place] [address] Munira Combs PA-C LAB_1 Performing Organization Address City/State/[facility] Phon e Number HP CONVERSION Vitamin D 25-Hydroxy, Total (08/25/2013 2:11 PM UKRAINIAN FOLK ARTS INSTRUCTOR) athologist [facility] Vitamin D 25 Oh 38 20 - 80 HP CONVERSION ng/mL Comment: Deficiency = <20 Adequate ??= 20-29 Preferred = 30-50 Uncertain safety = 51-80 High = >80 Specimen Anatomical Collection Method Collection Time Receive d Time (Source) Location / / Volume Laterality 08/25/2013 2:11 PM 4 6:14 UKRAINIAN FOLK ARTS INSTRUCTOR PM UKRAINIAN FOLK ARTS INSTRUCTOR Munira Combs PA-C LAB_1 Performing Organization Address City/[facility] Code Phon e Number HP CONVERSION Lipid Panel and Direct LDL(If Needed) (08/25/2013 2:11 PM UKRAINIAN FOLK ARTS INSTRUCTOR) [facility] Method Time Signature Cholesterol 179 0 - 200 HP CONVERSION mg/dL Triglycerides 79 0 - 149 HP CONVERSION mg/dL HDL Cholesterol 54 >39 mg/dL HP CONVERSION Cholesterol/HDL 3.3 HP CONVERSION Ratio Screen LDL Calculated 109 19 - 130 HP CONVERSION mg/dL Length Of Fast na HP CONVERSION Specimen Anatomical Collection Method Collection Time Receive d Time (Source) Location / / Volume Laterality 08/25/2013 2:11 PM 4 2:11 UKRAINIAN FOLK ARTS INSTRUCTOR PM UKRAINIAN FOLK ARTS INSTRUCTOR Narrative HP CONVERSION - 08/25/2013 3:41 PM UKRAINIAN FOLK ARTS INSTRUCTOR Performed at [facility], [address] [place] [address] Munira Combs PA-C LAB_1 Performing Organization Address City/[facility] Phon e Number HP CONVERSION GLUCOSE (08/25/2013 2:11 PM UKRAINIAN FOLK ARTS INSTRUCTOR) P athologist Signature Lab Glucose 89 60 - 100 HP CONVERSION mg/dL Specimen Anatomical Collection Method Collection Time Receive d Time (Source) Location / / Volume Laterality 08/25/2013 2:11 PM 4 2:11 UKRAINIAN FOLK ARTS INSTRUCTOR PM UKRAINIAN FOLK ARTS INSTRUCTOR Narrative HP CONVERSION - 08/25/2013 3:41 PM UKRAINIAN FOLK ARTS INSTRUCTOR Performed at [facility], [address] [place] [address] Munira Combs PA-C LAB_1 Performing Organization Address City/State/ZIP Code Phon e Number HP CONVERSION documented in this encounter Visit Diagnoses Diagnosis Screening for diabetes mellitus Screening cholesterol level Screening for lipoid disorders Annual physical exam Routine general medical examination at a health care facility Screening for other and unspecified defi ciency anemia HTN (hypertension) (HRC) Unspecified essential hypertension documented in this encounter Care Teams Import/Export Administrator Relationship Specialty Start Date End Date Munria Combs PA-C PCP - General 09/25/10 03/14/15 [address] [place] [address] documented as of this encounter
--- OUTSIDE RECORDS SUMMARY | 2022-03-20 16:16 | XMS_ITS | Encounter Summary ---
:1975 Author Organization [employer] Address [address] [place] [address] Care Team Providers Name Role Phone Kinga Pickett APRN, CNP Primary Care Provider [phone] Encounter Details Date Type Department Care Team Description 03/24/2015 Lab Visit [facility] [address] Routine s creening for STI Laboratory (sexually transmitted [address] 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 documented in this encounter Results Chlamydia & GC, Urine (03/24/2015 6:10 PM CDT) Analysis Performed At [facility] Time Signature Urine Negative Negative HP CONVERSION Chlamydia STD Comment: Test Performed by Wall Washer Mediated Amplification Results obtained from this source are no t FDA approved. CLIA Number [id number] Urine N. gonnorrhoeae STD Negative Negative HP C ONVERSION Comment: Test Performed by Wall Washer Mediated Amplification Results obtained from this source are no t FDA approved. Performed at [facility], [address] ??[address] CLIA Number [id number] Specimen Anatomical Collection Method Collection Time Receive d Time (Source) Location / / Volume Laterality 03/24/2015 6:10 PM 5 9:30 CDT PM CDT Kinga Pickett APRN, CNP LAB_1 Performing Organization Address City/State/ZIP Code Phon e Number HP CONVERSION documented in this encounter Visit Diagnoses Diagnosis Routine screening for STI (sexually jaquez smitted infection) Screening examination for venereal disea se documented in this encounter Care Teams Swaging Machine Operator Relationship Specialty Start Date End Date Kinga Pickett APRN, CNP PCP - General 03/15/15 07/04/16 [address] [place] [address] documented as of this encounter
--- OUTSIDE RECORDS SUMMARY | 2022-03-20 16:16 | XMS_ITS | Encounter Summary ---
:1975 Author Organization [employer] Address [address], [place] [address] Care Team Providers Name Role Phone Munira Combs PA-C Primary Care Provider Encounter Details Date Type Department Care Team Description 01/09/2014 [facility] [address] Ivan Donis MD Antibody response examination (Primary D x); [facility] [address] [place] [address] Screen ing examination for pulmonary tuberculosis; [facility] [address] Screening for diabetes mellitus; [address] [place], [place] [facility] [address] 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 documented as of this encounter Plan of Treatment Upcoming Encounters Date Type Specialty Care Team Description 05/05/2022 Appointment Chemo Therapy/Infusion Services 09/15/2022 Telemedicine Gastroenterology Eusebio Haines MD [address] [place] [address] (Wo rk) documented as of this encounter Visit Diagnoses Diagnosis Antibody response examination - Primary Screening examination for pulmonary tube rculosis Screening for diabetes mellitus Screening for lipoid disorders documented in this encounter Care Teams Shared Services And Outsourcing Manager Relationship Specialty Start Date End Date Munira Combs PA-C PCP - General 09/25/10 03/14/15 [address] [place] [address] documented as of this encounter
--- OUTSIDE RECORDS SUMMARY | 2022-03-20 16:16 | XMS_ITS | Encounter Summary ---
:1975 Author Organization [employer] Address [address], [place] [address] Care Team Providers Name Role Phone Munira Combs PA-C Primary Care Provider Reason for Visit Reason Comments Annual Exam Encounter Details Date Type Department Care Team Description 09/30/2014 Office Visit [facility] [address] Kinga Pickett We [address] adult exam (Primary Dx); Family Medicine BAG BUILDER, ENFORCEMENT OFFICER Irritable bowel syndrome; [address] (BMI 30-39.9); 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 female and is here for a comprehensive physical exam. The patient reports problems - severe IBS constant diarrhea, HTN controlled History: Any STD's in the past? none Past Medical History Diagnosis Date ??? Chronic headaches 08/11/2011 ??? Irritable bowel syndrome 11/29/2002 ??? 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 BCC (basal cell carcinoma), leg (ACG) 08/11/2011 ??? HTN (hypertension) (ACG) 08/11/2011 ??? Concussion 08/11/2011 ??? Obesity (ACG) 08/11/2011 ??? Hx of tonsillectomy 08/11/2011 ??? Clostridium difficile colitis 01/2012 Patient Active Problem List Diagnosis Date Noted ??? Chronic headaches 08/11/2011 ??? BCC (basal cell carcinoma), leg 08/11/2011 ??? HTN (hypertension) 08/11/2011 ??? Concussion 08/11/2011 ??? Obesity 08/11/2011 ??? Tobacco abuse 08/11/2011 ??? Hx of tonsillectomy 08/11/2011 ??? 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 Irritable Bowel Syndrome 11/29/2002 Class: Chronic Past Surgical History Procedure Laterality Date ??? Tonsillectomy ??? Cyst removal left wrist Family History Problem Relation Age of Onset ??? Heart Disease Neg Hx ??? Stroke Neg Hx ??? Cancer, Breast Neg Hx ??? Cancer, Colon Neg Hx ??? DVT/PE Neg Hx ??? Thyroid Disease Neg Hx ??? Diabetes Neg Hx ??? Dementia Maternal Grandmother ??? Cancer, Prostate Maternal Grandfather History Social History ??? Marital Status: Spouse Name: N/A Number of Children: 0 ??? 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 [...] ??? Weight Concern Yes Social History Narrative No Known Allergies Do you take any herbs or supplements that were not prescribed by a doctor? no Are you taking calcium supplements? no Are you taking aspirin daily? no Review of Systems Do you have pain that bothers you in your daily life? no A comprehensive review of systems was negative except for: Gastrointestinal: positive for abdominal pain, change in bowel habits and diarrhea Objective: BP 112/70 Pulse 66 Ht 5' 6.5 (1.689 m) Wt 202 lb (91.627 kg) BMI 32.12 kg/m2 General Appearance: Alert, cooperative, no distress, appears stated age Head: Normocephalic, without obvious abnormality, atraumatic Eyes: PERRL, conjunctiva/corneas clear, EOM's intact, fundi benign, both eyes Ears: Normal TM's and external ear canals, both ears Nose: Nares normal, septum midline, mucosa normal, no drainage or sinus tenderness Throat: Lips, mucosa, and tongue normal; teeth and gums normal Neck: Supple, symmetrical, trachea midline, no adenopathy; thyroid: no enlargement/tenderness/nodules; no carotid bruit or JVD Back: Symmetric, no curvature, ROM normal, no CVA tenderness Lungs: Clear to auscultation bilaterally, respirations unlabored Chest Wall: No tenderness or deformity Heart: Regular rate and rhythm, S1 and S2 normal, no murmur, rub or gallop Breast Exam: No tenderness, masses, or nipple abnormality Abdomen: Soft, non-tender, bowel sounds active all four quadrants, no masses, no organomegaly Genitalia: Normal female without lesion, discharge or tenderness Extremities: Extremities normal, atraumatic, no cyanosis or edema Pulses: 2+ and symmetric all extremities Skin: Skin color, texture, turgor normal, no rashes or lesions Lymph nodes: Cervical, supraclavicular, and axillary nodes normal Neurologic: CNII-XII intact, normal strength, sensation and reflexes throughout Assessment: Healthy female exam. see below Plan: 1Jim Emerson was seen today for annual exam. Diagnoses and associated orders for this visit: Well adult exam - TSH And Free T4 (FRT4 If TSH Abnorm); Future - Cholesterol Fraction-LDLD If Trig High; Future - Glucose; Future - Complete Blood Count-No Diff; Future Irritable bowel syndrome - GASTROENTEROLOGY CONSULT ADULT (AMB); Future - dicyclomine (BENTYL) 20 mg tablet; Take 1 tablet by mouth 4 times daily as needed. Obesity (BMI 30-39.9) (ACG) - MEDICAL WEIGHT MANAGEMENT CONSULT ADULT (AMB); Future Essential hypertension (ACG) - triamterene-hydrochlorothiazide (MAXZIDE-25) 37.5-25 mg per tablet; Take 1 tablet by mouth daily (every 24 hours). - Electrolytes (NA, K, CL, Bicarb); Future - Creatinine; Future Pap smear for cervical cancer screening - Pap Smear Order Other Orders - norethindrone-ethinyl estradiol (NECON , 28,) 1-35 mg-mcg per tablet; Take 1 tablet by mouth daily (every 24 hours). Patient takes continously - amitriptyline (ELAVIL) 25 mg tablet; Take 1-2 tablets by mouth nightly. 2. Patient Counseling: --Nutrition: Stressed importance of moderation in sodium/caffeine intake, saturated fat and cholesterol, caloric balance, sufficient intake of fresh fruits, vegetables, fiber, calcium, iron, and 1 mg of folate supplement per day (for females capable of ). --Exercise: Stressed the importance of regular exercise. --Substance Abuse: Discussed cessation/primary prevention of tobacco, alcohol, or other drug use; driving or other dangerous activities under the influence; availability of treatment for abuse. --Sexuality: Discussed sexually transmitted diseases, partner selection, use of condoms, avoidance of unintended and contraceptive alternatives. --Injury prevention: Discussed safety belts, safety helmets, smoke detector, smoking near bedding orupholstery. --Dental health: Discussed importance of regular tooth brushing, flossing, and dental visits. --Immunizations reviewed. 3. Follow up in one year documented in this encounter Plan of Treatment Upcoming Encounters Date Type Specialty Care Team Description 05/05/2022 Appointment Chemo Therapy/Infusion Services 09/15/2022 Telemedicine Gastroenterology Eusebio Haines MD [address] [place], [place] [address] (Wo rk) documented as of this encounter Procedures Procedure Name Priority Date/Time Associated Comments Diagnosis ANATOMICAL PATH Routine 09/30/2014 9:14 AM Result s for this LIQUID BASED CDT procedure are i n the results section. PAP SMEAR ORDER Routine 09/30/2014 9:14 AM Pap smear for Resul ts for this CDT cervical cancer procedure ar e in screening the results section. documented in this encounter Results Pap Smear (09/30/2014 9:14 AM CDT) Specimen (Source) Anatomical Collection Method Collection Time Re ceived Time Location / / Volume Laterality 09/30/2014 9:14 AM CDT Narrative HP CONVERSION - 10/05/2014 1:37 PM CDT Performed at [facility], [address] [place] [address] FINAL GYNECOLOGICAL CYTOLOGY REPORT Pathology #: [id number] ?Date Obtained: 09/30/2014 ? Date Received: 10/01/2014 INTERPRETATION/RESULTS: Negative for Intraepithelial Lesion or M alignancy. SPECIMEN ADEQUACY: Satisfactory for Evaluation. ??Endocervi per cells/transformation zone component present. Verified on 10/05/2014 ??by JARROD SPENCER(ASCP) (electronic signature) CLINICAL NOTES: ?Abnormal bleeding: No, LMP: 08/24, Hormonal TX: Yes LIQUID BASED PAP SMEAR SPECIMEN TYPE: ?CERVICAL WITH REFLEX TO HPV IF ASCUS PLEASE NOTE: The pap smear is a screening test design ed to aid in the detection of cervical cancer and its pre cursor lesions. It is not a diagnostic procedure and georges uld not be used as the sole means of detecting cervical cancer. Both false-positive and false-negative report s may occur. ? End of Report Kinga Pickett APRN, [facility] LAB_1 Performing Organization Address City/[facility] Phon e Number HP CONVERSION Pap Smear Order (09/30/2014 9:14 AM CDT) [facility] Method Time Signature Pap Smear Collected HP CONVERSION Monolayer tracking test Specimen Anatomical Collection Method Collection Time Receive d Time (Source) Location / / Volume Laterality 09/30/2014 9:14 AM 5 7:02 CDT AM CDT Narrative HP CONVERSION - 10/05/2014 1:33 PM CDT Performed at [facility], [facility] [place] [address] Kinga Pickett APRN, CNP LAB_1 Performing Organization Address City/[facility] Phon e Number HP CONVERSION documented in this encounter Visit Diagnoses Diagnosis Well adult exam - Primary Routine general medical examination at a health care facility Irritable bowel syndrome Obesity (BMI 30-39.9) (HRC) Obesity, unspecified Essential hypertension (HRC) Unspecified essential hypertension Pap smear for cervical cancer screening Screening for malignant neoplasm of the cervix documented in this encounter Care Teams Bid Manager Relationship Specialty Start Date End Date Munira Combs PA-C PCP - General 09/25/10 03/14/15 [address] [place] [address] documented as of this encounter
--- OUTSIDE RECORDS SUMMARY | 2022-03-20 16:16 | XMS_ITS | Encounter Summary ---
:1975 Author Organization [employer] Address [address] [address] Care Team Providers Name Role Phone Kinga Pickett APRN, CNP Primary Care Provider [phone] Encounter Details Date Type Department Care Team Description 03/24/2015 Lab Visit [facility] 3850 Elevated WBC count (Primary Dx); Laboratory Routine screening for STI (s exually transmitted infection); [address] 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 HIV ANTIBODY Routine 03/24/2015 11:39 Routine screening Result s for this AM CDT for STI (sexually procedure are in transmitted the results infection) section. TREPONEMA SCREEN Routine 03/24/2015 11:39 Routine screening Re sults for this AM CDT for STI (sexually procedure are in transmitted the results infection) section. COMPLETE BLOOD Routine 03/24/2015 11:39 Bruise Results f or this COUNT-W/DIFF AM CDT procedure are i n the results section. DIFFERENTIAL Routine 03/24/2015 11:39 Results for this AM CDT procedure are i n the results section. HEPATITIS C ANTIBODY, Routine 03/24/2015 11:39 Routine screeni ng Results for this WITH REFLEX AM CDT for STI (sexually procedure are in transmitted the results infection) section. FERRITIN Routine 03/24/2015 11:39 Bruise Results for this AM CDT procedure are i n the results section. documented in this encounter Results (ABNORMAL) Differential (03/24/2015 11:39 AM CDT) [facility] gist Method Time Signature Absolute 9.4 (H) 1.8 - 8.0 HP CONVERSION Neutrophils k/cmm Absolute 4.0 1.1 - 4.0 HP CONVERSION Lymphocytes k/cmm Absolute 0.5 0.2 - 0.8 HP CONVERSION Monocytes k/cmm Absolute 0.1 0.0 - 0.5 HP CONVERSION Eosinophils k/cmm Absolute 0.1 0.0 - 0.2 HP CONVERSION Basophils k/cmm Immature 0.5 0.0 - 0.5 HP CONVERSION Granulocytes % Specimen Anatomical Collection Method Collection Time Receive d Time (Source) Location / / Volume Laterality 03/24/2015 11:39 03/24/2015 AM CDT 11:39 AM CDT Narrative HP CONVERSION - 03/24/2015 12:13 PM CDT Performed at [place] [facility], [address] [place] [address] Kinga Pickett APRN, [facility] LAB_1 Performing Organization Address City/State/ZIP Code Phon e Number HP CONVERSION Ferritin (03/24/2015 11:39 AM CDT) athologist Signature Ferritin Serum 71 10 - 291 HP CONVERSION ng/mL Specimen Anatomical Collection Method Collection Time Receive d Time (Source) Location / / Volume Laterality 03/24/2015 11:39 03/24/2015 2:53 AM CDT PM CDT Narrative HP CONVERSION - 03/24/2015 9:00 PM CDT Performed at [facility], [facility] [place] [address] Kinga Pickett APRN, CNP LAB_1 Performing Organization Address City/[facility] Phon e Number HP CONVERSION IRON BINDING CAPACITY (INCL IRON) (03/24/2015 11:39 AM CDT) athologist Signature Iron, Serum 88 37 - 170 HP CONVERSION ug/dL Iron Binding 319 250 - 450 HP CONVERSION Capacity ug/dL Iron Saturation 28 20 - 55 % HP CONVERSION Specimen Anatomical Collection Method Collection Time Receive d Time (Source) Location / / Volume Laterality 03/24/2015 11:39 03/24/2015 2:53 AM CDT PM CDT Narrative HP CONVERSION - 03/24/2015 9:00 PM CDT Performed at [facility], [address] [place] [address] Kinga Pickett APRN, CNP LAB_1 Performing Organization Address [facility] Phon e Number HP CONVERSION (ABNORMAL) Complete Blood Count W/Diff (03/24/2015 11:39 AM CDT) [facility] gist Method Time Signature White Blood Cell 14.2 (H) 3.8 - HP CONVERSION Count 11.0 k/cmm Red Blood Cell 4.28 3.70 - HP CONVERSION Count 5.20 m/cmm Hemoglobin 13.7 11.8 - HP CONVERSION 15.5 g/dL Hematocrit 40.8 35.0 - HP CONVERSION 46.0 % Mean Corpuscular 95.3 80.0 - HP CONVERSION Volume 100.0 fL RDW 13.4 11.0 - HP CONVERSION 15.0 % Platelet Count 336 140 - 450 HP CONVERSION k/cmm Specimen Anatomical Collection Method Collection Time Receive d Time (Source) Location / / Volume Laterality 03/24/2015 11:39 03/24/2015 AM CDT 11:39 AM CDT Narrative HP CONVERSION - 03/24/2015 12:13 PM CDT Performed at [facility], [facility] [place] [address] Kinga Pickett APRN, CNP LAB_1 Performing Organization Address City/[facility] Phon e Number HP CONVERSION Treponema Screen (03/24/2015 11:39 AM CDT) [facility] gist Method Time Signature Treponema Non Reactive Non Reactive HP CONVERSION Screen Specimen Anatomical Collection Method Collection Time Receive d Time (Source) Location / / Volume Laterality 03/24/2015 11:39 03/24/2015 2:53 AM CDT PM CDT Narrative HP CONVERSION - 03/25/2015 9:55 AM CDT Performed at [facility], [facility] [place] [address] Kinga Pickett APRN, CNP LAB_1 Performing Organization Address [facility] Phon e Number HP CONVERSION HIV ANTIBODY (03/24/2015 11:39 AM CDT) athologist Signature HIV 1/HIV 2 Non-React Non-Reacti HP CONVERSION ve Specimen Anatomical Collection Method Collection Time Receive d Time (Source) Location / / Volume Laterality 03/24/2015 11:39 03/24/2015 2:53 AM CDT PM CDT Narrative HP CONVERSION - 03/25/2015 12:01 AM CDT Performed at [facility], [address] [place], [place] [address] Kinga Pickett APRN, CNP LAB_1 Performing Organization Address [facility] Phon e Number HP CONVERSION Hepatitis C Antibody, with Reflex (03/24/2015 11:39 AM CDT) [facility] Method Time Signature Hepatitis C Non-React Non-Reacti HP CONVERSION Antibody ve Specimen Anatomical Collection Method Collection Time Receive d Time (Source) Location / / Volume Laterality 03/24/2015 11:39 03/24/2015 2:53 AM CDT PM CDT Narrative HP CONVERSION - 03/24/2015 9:00 PM CDT Performed at [facility], [address] [place] [address] Kinga Pickett APRN, CNP LAB_1 Performing Organization Address [facility] Phon e Number HP CONVERSION documented in this encounter Visit Diagnoses Diagnosis Elevated WBC count (HRC) - Primary Leukocytosis, unspecified Routine screening for STI (sexually jaquez smitted infection) Screening examination for venereal disea se Bruise Contusion of unspecified site documented in this encounter Care Teams Letter Of Credit Document Examiner Relationship Specialty Start Date End Date Kinga Pickett, CLOCK ASSEMBLER, BAR WAITER/WAITRESS PCP - General 03/15/15 07/04/16 [address] [place] [address] documented as of this encounter
--- OUTSIDE RECORDS SUMMARY | 2022-03-20 16:16 | XMS_ITS | Encounter Summary ---
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 documented as of this encounter Nursing Notes July Martinez LPN - 05/26/2013 8:51 AM MERCHANDISE SUPERVISOR From: Idania Duarte To: Munira Combs PA-C Sent: 05/25/2013 8:12 PM MERCHANDISE SUPERVISOR Subject: Medication Renewal Request Original authorizing provider: MAVIS Palacio Fernando Felicia would like a refill of the following medications: amitriptyline (ELAVIL) 25 mg tablet [Munira Combs PA-C] dicyclomine (BENTYL) 20 mg tablet [Munira Combs PA-C] norgestimate-ethinyl estradiol (TRINESSA, 28,) 0.18/0.215/0.25 mg-35 mcg (28) tablet [Munira Combs PA-C] triamterene-hydrochlorothiazide (MAXZIDE-25) 37.5-25 mg per tablet [Munira Combs PA-C] Preferred pharmacy: Other - [facility], Comment: [email or web address] has been trying to contact the [facility] and there has been no returned calls or renewals of my medications sent in. They said to contact the clinc and let them know I need to order my refills and have the prescriptions sent to my mail order pharmacy. documented in this encounter Miscellaneous Notes Refill (Converted) - [place], Gary Provider - 05/26/2013 2:10 PM MERCHANDISE SUPERVISOR RE: Medication Renewal Request From User: JULY MARTINEZ, Your prescriptions have been faxed to [email or web address] mail order pharmacy. Thanks July ----- Message ----- From: IDANIA DUARTE Sent: 05/25/2013 8:12 PM MERCHANDISE SUPERVISOR To: Munira Combs PA-C Subject: Medication Renewal Request Original authorizing provider: MAVIS Palacio would like a refill of the following medications: amitriptyline (ELAVIL) 25 mg tablet [Munira Combs PA-C] dicyclomine (BENTYL) 20 mg tablet [Munira Combs PA-C] norgestimate-ethinyl estradiol (TRINESSA, 28,) 0.18/0.215/0.25 mg-35 mcg (28) tablet [Munira Combs PA-C] triamterene-hydrochlorothiazide (MAXZIDE-25) 37.5-25 mg per tablet [Munira Combs PA-C] Preferred pharmacy: Other - [facility], Comment: [facility] has been trying to contact the [facility] and there has been no returned calls or renewals of my medications sent in. They said to contact the clinc and let them know I need to order my refills and have the prescriptions sent to my mail order pharmacy. HANDISE SUPERVISOR documented in this encounter Plan of Treatment Upcoming Encounters Date Type Specialty Care Team Description 05/05/2022 Appointment Chemo Therapy/Infusion Services 09/15/2022 Telemedicine Gastroenterology Eusebio Haines MD [address] [place], [place] [address] (Wo rk) documented as of this encounter Visit Diagnoses Diagnosis Irritable bowel syndrome HTN (hypertension) (HRC) Unspecified essential hypertension documented in this encounter Care Teams Paint Preparer Relationship Specialty Start Date End Date Munira Combs PA-C PCP - General 09/25/10 03/14/15 [address] [id number] documented as of this encounter
--- OUTSIDE RECORDS SUMMARY | 2022-03-20 16:17 | XMS_ITS | Encounter Summary ---
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 documented as of this encounter Progress Notes Coral Naranjo PA-C - 11/01/2010 12:01 AM CDT Progress Notes signed by Coral Naranjo PA-C at 11/02/1008 Author: Coral Naranjo PA-C Service: (none) Author Type: Physician Supervisory Cbp Officer Filed: 11/04/102051 Note Time: 11/01/10 0001 Status: Signed Machine Tool Electrician: Coral Naranjo PA-C (Physician Supervisory Cbp Officer) NAME: IGGY DUARTE MR#: [id number] ACCT: [id number] VISIT: [id number] DICTATING CLINICIAN: Coral Naranjo PA-C CONFIRM #: [id number] LOC: 1706 CLINIC PROGRESS NOTE DATE OF VISIT: 11/01/2010 : 1975 This is a pleasant, 35-year-old female who presents today with a burning-type of pain in the left breast and is located in the lateral side of her breast. She does not see any redness, swelling, or lumps. Has been present for the last 2 weeks. She denies any chest pain, cough, or shortness of breath. The pain does not seem to be related to breathing. Typically it is more sore in the morning and then improves as the day goes on. She has tried wearing different bras to see if this makes a difference, but it is not. She has tried taking some ibuprofen, which does not seem to help her symptoms. Interestingly, she had the same symptoms on the right breast about a month ago, though symptoms also lasted 2 weeks and then went away. She does not do monthly breast exams. She is a smoker and smokes socially. PAST MEDICAL HISTORY: Has been reviewed. She does have a history of a biopsy-positive melanoma. She has no suspicious lesions that she is concerned about now. The pain will occasionally wake her up at night. She denies any fever, nausea, vomiting, or weight loss. MEDS: Have been reviewed and updated in [employer]. ALLERGIES: Have been reviewed and updated in [employer]. OBJECTIVE: VITAL SIGNS: Have been reviewed and updated in [employer]. GENERAL IMPRESSION: This is a pleasant female resting quietly in no acute distress. Examination of the left breast shows no abnormalities. Clinical breast exam was performed. Patient is point tender in the upper outer quadrant of the left breast. This appears to be normal breast tissue. No lumps or masses palpable. Same exam is noted on the right side. She may have some thickening in the upper outer quadrants of both breasts bilaterally, but no abnormalities noted. ASSESSMENT: 1. Left-sided breast pain most likely fibrocystic disease. 2. Tobacco abuse. PLAN: I did encourage her to quit smoking. The pain does seem to be in the lateral breast over a little thickened tissue. This does not appear to be abnormal and most likely is fibrocystic tissue. She has symmetrical findings on both sides and interestingly she had the pain on her right breast last month. Reassurance was given that she has probably developed fibrocystic breast arthralgia. We will do an ultrasound of the left breast to rule out any abnormalities that may be causing the pain. After we get the ultrasound and if everything looks normal, educated her on treating the fibrocystic breast pain with [place] oil, avoiding caffeine, avoiding smoking, as well as ibuprofen or Tylenol as needed. She does agree with this plan. She will watch for symptoms to worsen or persist. Certainly if they do, she needs to be re-evaluated, and she agrees with this plan. CJB:EAN C: CONFIRM #: [id number] documented in this encounter Plan of Treatment Upcoming Encounters Date Type Specialty Care Team Description 05/05/2022 Appointment Chemo Therapy/Infusion Services 09/15/2022 Telemedicine Gastroenterology Eusebio Haines MD [address] [place] [address] (Wo rk) documented as of this encounter Visit Diagnoses Not on filedocumented in this encounter Care Teams Recovery Assistant Relationship Specialty Start Date End Date Munira Combs PA-C PCP - General 09/25/10 03/14/15 [address] [place], [place] [phone] documented as of this encounter
--- OUTSIDE RECORDS SUMMARY | 2022-03-20 16:17 | XMS_ITS | Encounter Summary ---
:1975 Author Organization [email or web address] Address [address], [place] [address] Care Team Providers Name Role Phone Munira Combs PA-C Primary Care Provider Encounter Details Date Type Department Care Team Description 09/11/2011 Notes/Orders [facility] Munira Falcon PA-C [address] [facility] [address] [place] [address] [place] [address] [phone] (Wo rk) Social History Tobacco Use Types Packs/Day Years Used Date Smoking Tobacco: Never Assessed Sex Assigned at Date Recorded Female 05/09/2021 7:19 PM CLINICAL DIETICIAN documented as of this encounter Plan of Treatment Upcoming Encounters Date Type Specialty Care Team Description 05/05/2022 Appointment Chemo Therapy/Infusion Services 09/15/2022 Telemedicine Gastroenterology Eusebio Haines MD [address] [place] [address] (Wo rk) documented as of this encounter Visit Diagnoses Not on filedocumented in this encounter Care Teams Rose Grower Relationship Specialty Start Date End Date Munira Combs PA-C PCP - General 09/25/10 03/14/15 [address] [place] [address] documented as of this encounter
--- OUTSIDE RECORDS SUMMARY | 2022-03-20 16:17 | XMS_ITS | Encounter Summary ---
:1975 Author Organization [employer] Address [address] [place] [address] Care Team Providers Name Role Phone Munira Combs PA-C Primary Care Provider Reason for Visit Reason Comments Refill Encounter Details Date Type Department Care Team Description 04/17/2011 Refill [facility] Munira Falcon PA-C Refill [address] [address] [place] [address] (Wo rk) Social History Tobacco Use Types Packs/Day Years Used Date Smoking Tobacco: Never Assessed Sex Assigned at Date Recorded Female 05/09/2021 7:19 PM STERILE TECH documented as of this encounter Nursing Notes Margot Wilcox RN - 04/17/2011 8:46 PM CDT Renewed medication per medication refill protocol. documented in this encounter Plan of Treatment Upcoming Encounters Date Type Specialty Care Team Description 05/05/2022 Appointment Chemo Therapy/Infusion Services 09/15/2022 Telemedicine Gastroenterology Eusebio Haines MD [address] [place], [place] [phone] (Wo rk) documented as of this encounter Visit Diagnoses Not on filedocumented in this encounter Care Teams Mortgage Collector Relationship Specialty Start Date End Date Munira Combs PA-C PCP - General 09/25/10 03/14/15 [address] [place] [address] documented as of this encounter
--- OUTSIDE RECORDS SUMMARY | 2022-03-20 16:17 | XMS_ITS | Encounter Summary ---
:1975 Author Organization [employer] Address [address] [address] Care Team Providers Name Role Phone Munira Combs PA-C Primary Care Provider Reason for Visit Reason Comments Refill Encounter Details Date Type Department Care Team Description 08/02/2011 Refill [facility] Munira Falcon PA-C Refill [address] [place] [address] [place] [address] (Wo rk) Social History Tobacco Use Types Packs/Day Years Used Date Smoking Tobacco: Never Assessed Sex Assigned at Date Recorded Female 05/09/2021 7:19 PM PHYSICIAN ASSISTANT PSYCHIATRY documented as of this encounter Nursing Notes Madalyn Orta LPN - 08/03/2011 1:56 PM CST Left VM indicating rx has been sent to pharmacy. Requested pt. schedule med check soon. ICIAN ASSISTANT PSYCHIATRY Munira Combs PA-C - 08/03/2011 12:06 PM CST Rx sent. needs med check. ICIAN ASSISTANT PSYCHIATRY Adri Barragan MA - 08/02/2011 1:52 PM PHYSICIAN ASSISTANT PSYCHIATRY From: IGGY DUARTE To: Munira Combs PA-C Sent: SunAug 02, 2011 1:34 PM Subject: Medication Renewal Request Original authorizing provider: MAVIS Palacio would like a refill of the following medications: dicyclomine (BENTYL) 20 mg tablet [Munira Combs PA-C] Preferred pharmacy: [facility] Comment: documented in this encounter Miscellaneous Notes Refill (Converted) - Mychart, Generic Provider - 08/02/2011 1:34 PM PHYSICIAN ASSISTANT PSYCHIATRY Medication Renewal Request From User: Original authorizing provider: MAVIS Palacio would like a refill of the following medications: dicyclomine (BENTYL) 20 mg tablet [Munira Combs PA-C] Preferred pharmacy: [facility] Comment: ICIAN ASSISTANT PSYCHIATRY documented in this encounter Plan of Treatment Upcoming Encounters Date Type Specialty Care Team Description 05/05/2022 Appointment Chemo Therapy/Infusion Services 09/15/2022 Telemedicine Gastroenterology Eusebio Haines MD [address] [place] [address] (Wo rk) documented as of this encounter Visit Diagnoses Diagnosis Irritable bowel syndrome - Primary documented in this encounter Care Teams Manager Underwriting Relationship Specialty Start Date End Date Munira Combs PA-C PCP - General 09/25/10 03/14/15 [address] [place] [address] documented as of this encounter
--- OUTSIDE RECORDS SUMMARY | 2022-03-20 16:17 | XMS_ITS | Encounter Summary ---
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
--- OUTSIDE RECORDS SUMMARY | 2022-03-20 16:17 | XMS_ITS | Encounter Summary ---
:1975 Author Organization [employer] Address [address], [place] [address] Care Team Providers Name Role Phone Munira Combs PA-C Primary Care Provider Encounter Details Date Type Department Care Team Description 08/10/2012 Lab Visit [facility] HTN (hypertension) [address] [place] [address] Social History Tobacco Use Types Packs/Day Years Used Date Smoking Tobacco: Never Assessed Sex Assigned at Date Recorded Female 05/09/2021 7:19 PM BOARD MEMBER documented as of this encounter Plan of Treatment Upcoming Encounters Date Type Specialty Care Team Description 05/05/2022 Appointment Chemo Therapy/Infusion Services 09/15/2022 Telemedicine Gastroenterology Eusebio Haines MD [address] [place] [address] (Wo rk) documented as of this encounter Procedures Procedure Name Priority Date/Time Associated Diagnosis Comme nts CREATININE / GFR Routine 08/10/2012 8:32 AM HTN (hypertension) Results for this BOARD MEMBER procedure are i n the results section. ELECTROLYTE PANEL Routine 08/10/2012 8:32 AM HTN (hypertension ) Results for this BOARD MEMBER procedure are i n the results section. documented in this encounter Results Creatinine / GFR (08/10/2012 8:32 AM BOARD MEMBER) P athologist Signature Creatinine 0.9 0.4 - 1.3 HP CONVERSION Serum mg/dL [...] Time (Source) Location / / Volume Laterality 08/10/2012 8:32 AM 3 8:32 BOARD MEMBER AM BOARD MEMBER Narrative HP CONVERSION - 08/10/2012 9:24 AM BOARD MEMBER Performed at [facility], [address] [place] [address] Munira Combs PA-C LAB_1 Performing Organization Address City/[facility] Phon e Number HP CONVERSION Electrolyte Panel (08/10/2012 8:32 AM BOARD MEMBER) athologist Signature Sodium 141 137 - 147 HP CONVERSION mEq/L Potassium 3.6 3.5 - 5.2 HP CONVERSION mEq/L Chloride 106 98 - 110 HP CONVERSION mEq/L Bicarbonate 30 23 - 33 HP CONVERSION mmol/L Specimen Anatomical Collection Method Collection Time Receive d Time (Source) Location / / Volume Laterality 08/10/2012 8:32 AM 3 8:32 BOARD MEMBER AM BOARD MEMBER Narrative HP CONVERSION - 08/10/2012 9:24 AM BOARD MEMBER Performed at [facility], [address] [place] [address] Munira Combs PA-C LAB_1 Performing Organization Address City/[facility] Phon e Number HP CONVERSION documented in this encounter Visit Diagnoses Diagnosis HTN (hypertension) (HRC) Unspecified essential hypertension documented in this encounter Care Teams Director Life Sales Relationship Specialty Start Date End Date Munira Combs PA-C PCP - General 09/25/10 03/14/15 [address] [place] [address] documented as of this encounter
--- OUTSIDE RECORDS SUMMARY | 2022-03-20 16:17 | XMS_ITS | Encounter Summary ---
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 NORTREL , 28, 1-35 mg-mcg per tablet 28 tablet 0 Sig: Take 1 tablet by mouth daily TAKE ACTIVE PILLS DAILY THEN DISCARD INACTIVE PILLS AND IMMEDIATELY START NEXT PACK. TAKING CONTINUOUSLY Authorizing Provider: SHERIE BAEZ Ordering User: HUONG ELLIS ??? amitriptyline (ELAVIL) 25 mg tablet 30 tablet 0 Sig: Take 1 to 2 tablets by mouth every night at bedtime Authorizing Provider: SHERIE BAEZ Ordering User: HUONG ELLIS ??? triamterene-hydrochlorothiazide (MAXZIDE-25) 37.5-25 mg per tablet 30 tablet 0 Sig: Take 1 tablet by mouth daily (every 24 hours). Authorizing Provider: SHERIE BAEZ Ordering User: HUONG ELLIS documented in this encounter Plan of Treatment Upcoming Encounters Date Type Specialty Care Team Description 05/05/2022 Appointment Chemo Therapy/Infusion Services 09/15/2022 Telemedicine Gastroenterology Eusebio Haines MD [address] [place] [address] (Wo rk) documented as of this encounter Visit Diagnoses Not on filedocumented in this encounter Care Teams Gymnastics Coach Or Instructor Relationship Specialty Start Date End Date Sherie Baez, PAZitaC PCP - General 09/25/10 03/14/15 [address] [place], [place] [id number] documented as of this encounter
--- OUTSIDE RECORDS SUMMARY | 2022-03-20 16:17 | XMS_ITS | Encounter Summary ---
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 triamterene-hydrochlorothiazide (MAXZIDE-25) 37.5-25 mg per tablet 30 tablet 0 Sig: Take 1 tablet by mouth daily (every 24 hours). Authorizing Provider: SHERIE BAEZ Ordering User: MANA MURILLO Renewed medication per medication refill protocol. Temporary fill sent to local pharmacy as requested by pt. Indira Mckeon - 08/16/2012 9:41 AM CST Pt mailed in her rx from 08/10/12 but will run out before mail order pharmacy can send her the rx. [facility] Please send new rx if appropriate, thank you. K FEEDER documented in this encounter Plan of Treatment Upcoming Encounters Date Type Specialty Care Team Description 05/05/2022 Appointment Chemo Therapy/Infusion Services 09/15/2022 Telemedicine Gastroenterology Eusebio Haines MD [address] [place], [place] [id number] (Wo rk) documented as of this encounter Visit Diagnoses Diagnosis HTN (hypertension) (HRC) - Primary Unspecified essential hypertension documented in this encounter Care Teams Religious Education Teacher Relationship Specialty Start Date End Date Sherie Baez PA-C PCP - General 09/25/10 03/14/15 [address] [place], [place] [phone] documented as of this encounter
--- OUTSIDE RECORDS SUMMARY | 2022-03-20 16:17 | XMS_ITS | Encounter Summary ---
:1975 Author Organization [employer] Address [address], [place] [address] Care Team Providers Name Role Phone Munira Combs PA-C Primary Care Provider Encounter Details Date Type Department Care Team Description 07/06/2010 PN Conversion Only NADIA CONVERSION Munira Combs PA-C [address] [place] [address] [place], [place] [phone] (Wo rk) Social History Tobacco Use Types Packs/Day Years Used Date Smoking Tobacco: Never Assessed Sex Assigned at Date Recorded Female 05/09/2021 7:19 PM SUPERINTENDENT NONSELLING documented as of this encounter Plan of Treatment Upcoming Encounters Date Type Specialty Care Team Description 05/05/2022 Appointment Chemo Therapy/Infusion Services 09/15/2022 Telemedicine Gastroenterology Eusebio Haines MD [address] [place] [address] (Wo rk) documented as of this encounter Procedures Procedure Name Priority Date/Time Associated Comments Diagnosis GLUCOSE Routine 07/06/2010 8:25 AM Results f or this SUPERINTENDENT NONSELLING procedure are i n the results section. THYROID STIMULATING Routine 07/06/2010 8:25 AM Re sults for this HORMONE SUPERINTENDENT NONSELLING procedure are i n the results section. LIPID PANEL AND Routine 07/06/2010 8:25 AM Result s for this DIRECT LDL(IF NEEDED) SUPERINTENDENT NONSELLING proced ure are in the results section. VITAMIN D 25-HYDROXY, Routine 07/06/2010 8:25 AM Results for this TOTAL SUPERINTENDENT NONSELLING procedure are i n the results section. ELECTROLYTE PANEL Routine 07/06/2010 8:25 AM Resu lts for this SUPERINTENDENT NONSELLING procedure are i n the results section. documented in this encounter Results (ABNORMAL) Vitamin D 25-Hydroxy, Total (07/06/2010 8:25 AM SUPERINTENDENT NONSELLING) athologist Signature Vitamin D 25 26 (L) 30 - 80 HP CONVERSION Oh ng/mL Comment: This assay accurately quantifies the sum of vitamin D3, 25-hydroxy and vitamin D2, 25-hydroxy 0 - 17 years: Deficiency: Less than 20 ng/mL Optimum level: Greater than or equal to 20 ng/mL* *(Ham CL et al. Pediatrics 2008; 122: 1128-38) 18 years and older: Deficiency: Less than 20 ng/mL Insufficiency: 20 - 29 ng/mL Optimum level: 30 - 80 ng/mL Possible toxicity: Greater than 150 ng/m L Specimen (Source) Anatomical Collection Method Collection Time Re ceived Time Location / / Volume Laterality 07/06/2010 8:25 AM SUPERINTENDENT NONSELLING Munira Combs PA-C LAB_1 Performing Organization Address City/State/ZIP Code Phon e Number HP CONVERSION THYROID STIMULATING HORMONE (07/06/2010 8:25 AM SUPERINTENDENT NONSELLING) athologist Signature Thyroid 1.59 0.20 - HP CONVERSION Stimulating 4.50 mIU/L Hormone Specimen (Source) Anatomical Collection Method Collection Time Re ceived Time Location / / Volume Laterality 07/06/2010 8:25 AM SUPERINTENDENT NONSELLING Munira Combs PA-C LAB_1 Performing Organization Address City/State/ZIP Code Phon e Number HP CONVERSION Lipid Panel and Direct LDL(If Needed) (07/06/2010 8:25 AM SUPERINTENDENT NONSELLING) Patholo gist Method Time Signature Cholesterol 184 0 - 200 HP CONVERSION mg/dL Triglycerides 122 0 - 149 HP CONVERSION mg/dL HDL Cholesterol 43 >39 mg/dL HP CONVERSION Cholesterol/HDL 4.3 No normal HP CONVERSION Ratio Screen range LDL Calculated 117 19 - 130 HP CONVERSION mg/dL Length Of Fast 12.0 No normal HP CONVERSION range Specimen (Source) Anatomical Collection Method Collection Time Re ceived Time Location / / Volume Laterality 07/06/2010 8:25 AM SUPERINTENDENT NONSELLING Munira Combs PA-C LAB_1 Performing Organization Address City/State/ZIP Code Phon e Number HP CONVERSION Electrolyte Panel (07/06/2010 8:25 AM SUPERINTENDENT NONSELLING) P athologist Signature Sodium 140 137 - 147 HP CONVERSION mEq/L Potassium 3.8 3.5 - 5.2 HP CONVERSION mEq/L Chloride 103 98 - 110 HP CONVERSION mEq/L Bicarbonate 29 23 - 33 HP CONVERSION mmol/L Specimen (Source) Anatomical Collection Method Collection Time Re ceived Time Location / / Volume Laterality 07/06/2010 8:25 AM SUPERINTENDENT NONSELLING Munira Combs PA-C LAB_1 Performing Organization Address City/[facility] Code Phon e Number HP CONVERSION GLUCOSE (07/06/2010 8:25 AM SUPERINTENDENT NONSELLING) athologist Signature Lab Glucose 83 60 - 100 HP CONVERSION mg/dL Specimen (Source) Anatomical Collection Method Collection Time Re ceived Time Location / / Volume Laterality 07/06/2010 8:25 AM SUPERINTENDENT NONSELLING Munira Combs PA-C LAB_1 Performing Organization Address City/[facility] Phon e Number HP CONVERSION documented in this encounter Visit Diagnoses Not on filedocumented in this encounter Care Teams Yard Associate Relationship Specialty Start Date End Date Munira Combs PA-C PCP - General 09/25/10 03/14/15 [address] [place] [address] documented as of this encounter
--- OUTSIDE RECORDS SUMMARY | 2022-03-20 16:17 | XMS_ITS | Encounter Summary ---
:1975 Author Organization [employer] Address [address] [address] Care Team Providers Name Role Phone Munira Combs PA-C Primary Care Provider Encounter Details Date Type Department Care Team Description 02/19/2012 Lab Visit [facility] Selin denis; Laboratory Irritable bowel syndrome [address] [facility] 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 documented in this encounter Results TISSUE TRANSGLUTAMINASE AB IGA (02/19/2012 3:10 PM CDT) [facility] Method Time Signature Tissue 4 0 - 19 HP CONVERSION Transglutaminase Units Antibody, IgA Comment: INTERPRETIVE INFORMATION: Tissue Transgl utaminase (tTG) Antibody, IgA 19 Units or less: Negative 20-30 Units: Weak Positive 31 Units or greater: Moderate to Strong Positive Presence of the tissue transglutaminase (tTG) IgA antibody is associated with gluten-sensitive ente ropathies such as celiac disease and dermatitis herpetifor mis. tTG IgA antibody concentrations greater than or equal to 100 Units usually correlate with results of duoden al biopsies consistent with a diagnosis of celiac di sease. For antibody concentrations greater than 20 Units but less than 100 Units, additional testing for endomysial (SARITA) IgA concentrations may improve the positive predictive value for disease. Specimen Anatomical Collection Method Collection Time Receive d Time (Source) Location / / Volume Laterality 02/19/2012 3:10 PM 2 3:24 CDT PM CDT Narrative HP CONVERSION - 02/20/2012 10:53 PM CDT Performed at [facility] [address] [place] [address] Eusebio Mcmanus MD LAB_1 Performing Organization Address City/State/ZIP Code Phon e Number HP CONVERSION documented in this encounter Visit Diagnoses Diagnosis Diarrhea Irritable bowel syndrome documented in this encounter Care Teams Shopper Marketing Manager Relationship Specialty Start Date End Date Munira Combs PA-C PCP - General 09/25/10 03/14/15 [address] [place] [address] documented as of this encounter
--- OUTSIDE RECORDS SUMMARY | 2022-03-20 16:17 | XMS_ITS | Encounter Summary ---
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 amitriptyline (ELAVIL) 25 mg tablet 60 tablet 0 Sig: Take 1-2 tablets by mouth nightly. Authorizing Provider: SHERIE BAEZ Ordering User: HUONG ELLIS Frontline-please call patient to make appt for well exam or med check within 30 days. Thanks. documented in this encounter Plan of Treatment Upcoming Encounters Date Type Specialty Care Team Description 05/05/2022 Appointment Chemo Therapy/Infusion Services 09/15/2022 Telemedicine Gastroenterology Eusebio Haines MD [address] [place], [place] [address] (Wo rk) documented as of this encounter Visit Diagnoses Not on filedocumented in this encounter Care Teams Heat Treat Puller Relationship Specialty Start Date End Date Sherie Baez PA-C PCP - General 09/25/10 03/14/15 [address] [place] [phone] documented as of this encounter
--- OUTSIDE RECORDS SUMMARY | 2022-03-20 16:17 | XMS_ITS | Encounter Summary ---
:1975 Author Organization [employer] Address [address], [place] [address] Care Team Providers Name Role Phone Munira Combs PA-C Primary Care Provider Encounter Details Date Type Department Care Team Description 08/11/2011 Lab Visit [facility] [place] [address] [address] [address] Social History Tobacco Use Types Packs/Day Years Used Date Smoking Tobacco: Never Assessed Sex Assigned at Date Recorded Female 05/09/2021 7:19 PM CHEMICAL PROCESSING TECHNICIAN documented as of this encounter Plan of Treatment Upcoming Encounters Date Type Specialty Care Team Description 05/05/2022 Appointment Chemo Therapy/Infusion Services 09/15/2022 Telemedicine Gastroenterology Eusebio Haines MD [address] [place] [address] (Wo rk) documented as of this encounter Procedures Procedure Name Priority Date/Time Associated Diagnosis Comme nts GLUCOSE Routine 08/11/2011 1:41 PM Well female exam with Results for this CHEMICAL PROCESSING TECHNICIAN routine gynecological proced ure are in exam the results section. THYROID STIMULATING Routine 08/11/2011 1:41 PM Well female exa m with Results for this HORMONE CHEMICAL PROCESSING TECHNICIAN routine gynecological proced ure are in exam the results section. LIPID PANEL AND Routine 08/11/2011 1:41 PM Well female exam wi th Results for this DIRECT LDL(IF CHEMICAL PROCESSING TECHNICIAN routine gynecological proce dure are in NEEDED) exam the results section. CREATININE / GFR Routine 08/11/2011 1:41 PM Well female exam w ith Results for this CHEMICAL PROCESSING TECHNICIAN routine gynecological proced ure are in exam the results section. HEMOGLOBIN, BLOOD Routine 08/11/2011 1:41 PM Well female exam with Results for this CHEMICAL PROCESSING TECHNICIAN routine gynecological proced ure are in exam the results section. ELECTROLYTE PANEL Routine 08/11/2011 1:41 PM Well female exam with Results for this CHEMICAL PROCESSING TECHNICIAN routine gynecological proced ure are in exam the results section. documented in this encounter Results GLUCOSE (08/11/2011 1:41 PM CHEMICAL PROCESSING TECHNICIAN) athologist Signature Lab Glucose 85 60 - 100 HP CONVERSION mg/dL Specimen Anatomical Collection Method Collection Time Receive d Time (Source) Location / / Volume Laterality 08/11/2011 1:41 PM 2 1:41 CHEMICAL PROCESSING TECHNICIAN PM CHEMICAL PROCESSING TECHNICIAN Narrative HP CONVERSION - 08/11/2011 3:09 PM CHEMICAL PROCESSING TECHNICIAN Performed at [facility], [address] [place] [address] Dahiaan Pulido PA-C LAB_1 Performing Organization Address City/[facility] Phon e Number HP CONVERSION Lipid Panel and Direct LDL(If Needed) (08/11/2011 1:41 PM CHEMICAL PROCESSING TECHNICIAN) [facility] Method Time Signature Cholesterol 178 0 - 200 HP CONVERSION mg/dL Triglycerides 138 0 - 149 HP CONVERSION mg/dL HDL Cholesterol 48 >39 mg/dL HP CONVERSION Cholesterol/HDL 3.7 HP CONVERSION Ratio Screen LDL Calculated 102 19 - 130 HP CONVERSION mg/dL Length Of Fast 12.0 HP CONVERSION Specimen Anatomical Collection Method Collection Time Receive d Time (Source) Location / / Volume Laterality 08/11/2011 1:41 PM 2 1:41 CHEMICAL PROCESSING TECHNICIAN PM CHEMICAL PROCESSING TECHNICIAN Narrative HP CONVERSION - 08/11/2011 3:09 PM CHEMICAL PROCESSING TECHNICIAN Performed at [facility], [address] [place] [address] Dahiana Pulido PA-C LAB_1 Performing Organization Address City/[facility] Phon e Number HP CONVERSION THYROID STIMULATING HORMONE (08/11/2011 1:41 PM CHEMICAL PROCESSING TECHNICIAN) athologist Signature Thyroid 1.75 0.20 - HP CONVERSION Stimulating 4.50 mIU/L Hormone Specimen Anatomical Collection Method Collection Time Receive d Time (Source) Location / / Volume Laterality 08/11/2011 1:41 PM 2 6:31 CHEMICAL PROCESSING TECHNICIAN PM CHEMICAL PROCESSING TECHNICIAN Dahiana Pulido PA-C LAB_1 Performing Organization Address City/[facility]/ZIP Code Phon e Number HP CONVERSION Creatinine / GFR (08/11/2011 1:41 PM CHEMICAL PROCESSING TECHNICIAN) athologist Signature Creatinine 0.7 0.4 - 1.3 [...] Time (Source) Location / / Volume Laterality 08/11/2011 1:41 PM 2 1:41 CHEMICAL PROCESSING TECHNICIAN PM CHEMICAL PROCESSING TECHNICIAN Narrative HP CONVERSION - 08/11/2011 3:09 PM CHEMICAL PROCESSING TECHNICIAN Performed at [facility], [address] [place] [address] Dahiana Pulido PA-C LAB_1 Performing Organization Address [facility] Phon e Number HP CONVERSION Electrolyte Panel (08/11/2011 1:41 PM CHEMICAL PROCESSING TECHNICIAN) athologist Signature Sodium 139 137 - 147 HP CONVERSION mEq/L Potassium 3.7 3.5 - 5.2 HP CONVERSION mEq/L Chloride 108 98 - 110 HP CONVERSION mEq/L Bicarbonate 26 23 - 33 HP CONVERSION mmol/L Specimen Anatomical Collection Method Collection Time Receive d Time (Source) Location / / Volume Laterality 08/11/2011 1:41 PM 2 1:41 CHEMICAL PROCESSING TECHNICIAN PM CHEMICAL PROCESSING TECHNICIAN Narrative HP CONVERSION - 08/11/2011 3:09 PM CHEMICAL PROCESSING TECHNICIAN Performed at [facility], [address] [place] [address] Dahiana Pulido PA-C LAB_1 Performing Organization Address City/[facility] Phon e Number HP CONVERSION Hemoglobin, Blood (08/11/2011 1:41 PM CHEMICAL PROCESSING TECHNICIAN) athologist Signature Hemoglobin 14.1 11.8 - 15.5 HP CONVERSION g/dL Specimen Anatomical Collection Method Collection Time Receive d Time (Source) Location / / Volume Laterality 08/11/2011 1:41 PM 2 1:41 CHEMICAL PROCESSING TECHNICIAN PM CHEMICAL PROCESSING TECHNICIAN Narrative HP CONVERSION - 08/11/2011 1:49 PM CHEMICAL PROCESSING TECHNICIAN Performed at [facility], [address] [place] [address] Dahiana Pulido PA-C LAB_1 Performing Organization Address City/State/ZIP Code Phon e Number HP CONVERSION documented in this encounter Visit Diagnoses Diagnosis Well female exam with routine gynecologi per exam Routine gynecological examination documented in this encounter Care Teams Automotive Design Layout Drafter Relationship Specialty Start Date End Date Munira Combs PA-C PCP - General 09/25/10 03/14/15 [address] [place] [address] documented as of this encounter
--- OUTSIDE RECORDS SUMMARY | 2022-03-20 16:17 | XMS_ITS | Encounter Summary ---
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 VENIPUNCTURE (MELANI) Routine 02/16/2011 12:34 Unspecified essen tial Results for this PM CDT hypertension (HRC) procedure are in the results section. documented in this encounter Results Creatinine / GFR (02/16/2011 12:35 PM CDT) P athologist Signature Creatinine 0.8 0.4 - 1.3 HP CONVERSION Serum mg/dL [...] Time (Source) Location / / Volume Laterality 02/16/2011 12:35 02/16/2011 4:39 PM CDT PM CDT Narrative HP CONVERSION - 02/16/2011 5:05 PM CDT Performed at [facility], [address] [place] [address] Munira Combs PA-C LAB_1 Performing Organization Address [facility] Phon e Number HP CONVERSION VENIPUNCTURE (MELANI) (02/16/2011 12:34 PM CDT) athologist Signature Venipuncture Done HP CONVERSION Specimen (Source) Anatomical Collection Method Collection Time Re ceived Time Location / / Volume Laterality 02/16/2011 12:34 PM CDT Narrative HP CONVERSION - 02/16/2011 12:34 PM CDT Performed at [facility], [address] [place] [id number] Munira Combs PA-C LAB_1 Performing Organization Address [facility] Phon e Number HP CONVERSION documented in this encounter Visit Diagnoses Diagnosis Unspecified essential hypertension (HRC) Unspecified essential hypertension documented in this encounter Care Teams Bung Driver Relationship Specialty Start Date End Date Munira Combs PA-C PCP - General 09/25/10 03/14/15 [address] [place] [address] documented as of this encounter
--- OUTSIDE RECORDS SUMMARY | 2022-03-20 16:17 | XMS_ITS | Encounter Summary ---
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 Last seen about 6 months ago. She has a history of dysplastic nevus right plantar foot excised in the past. Also has had superficial basal cell on the left thigh treated by ED and C by Dr. Mott and atypical melanocytic lesion removed on her upper abdomen that was in June 2008. She has noted no worrisome changes. There is a mole on her left breast that I have been following and wanted to remove last appointment that she wanted to continue to just clinically monitor. She denies any changes in that mole. She has discontinued use of tanning beds. MEDICATIONS: Reviewed, updated [employer] profile. ALLERGIES: Reviewed [employer] profile. FAMILY HISTORY: Negative for melanoma. OBJECTIVE: On exam she is a very pleasant woman in no distress. Evaluation skin of the face, scalp, neck, anterior and posterior trunk, both upper extremities, lower extremities including palpation of the skin, examination of fingernails and toenails reveal a number of light brown nevi noted again on the right breast. She has a slightly irregularly bordered brown nevus, right medial breast of 2- 3 mm, does not appear to have changed since last appointment. On the left breast just the undersurface of the breast there is a 7 x 3 mm oval-shaped nevus that has darker pigmentation centrally but very symmetrical, unchanged from previous. Well-healed scar on the upper abdomen. No evidence of recurrence there. Well-healed scar on the left thigh, no evidence of basal cell recurrence there. She has a tattoo on the mid upper back and on the superior aspect of the tattoo, there is an approximately circular very evenly appearing pigmented nevus that is macular about 3 x 4 mm in size. No other worrisome lesions are noted. ASSESSMENT: History of atypical melanocytic lesion without recurrence. History of basal cell carcinoma. No recurrence. Multiple nevi, dysplastic nevus left breast. PLAN: Discussed again warning changes in moles, continued monitoring recommended. Congratulated her on her discontinuation of tanning bed use. Recommend followup appointment in 6 months given the nevi noted on exam today, sooner if she notes worrisome change. MMB:MEDQ C: CONFIRM #: [id number] documented in this encounter Plan of Treatment Upcoming Encounters Date Type Specialty Care Team Description 05/05/2022 Appointment Chemo Therapy/Infusion Services 09/15/2022 Telemedicine Gastroenterology Eusebio Haines MD [address] [place] [address] (Wo rk) documented as of this encounter Visit Diagnoses Not on filedocumented in this encounter Care Teams Mechanical Unit Repairer Relationship Specialty Start Date End Date Munira Combs PA-C PCP - General 09/25/10 03/14/15 [address] [place], [place] [id number] documented as of this encounter
--- OUTSIDE RECORDS SUMMARY | 2022-03-20 16:17 | XMS_ITS | Encounter Summary ---
:1975 Author Organization [employer] Address [address], [place] [address] Care Team Providers Name Role Phone Munira Combs PA-C Primary Care Provider Reason for Visit Reason Comments Abdominal Pain Encounter Details Date Type Department Care Team Description 02/15/2012 Hospital Encounter [facility] Haim Carroll Abdominal pain, unspecified site; Gloria Saini MD Diarrhea; [id number] [place] Nausea; [address] Colitis; [place], [place] Irritabl e bowel syndrome; [id number] Leukocytosis [phone] Social History Tobacco Use Types Packs/Day Years Used Date Smoking Tobacco: Never Assessed Sex Assigned at Date Recorded Female 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 metroNIDAZOLE (aka Take 1 tablet by 42 tablet 0 02/16/2012 03/01/2012 FLAGYL) tablet mouth 3 times daily for 14 days. UNKNOWN MEDICATION Indications: PN: 0 11/01/2010 08/10/2012 amitriptyline (AKA Take 1-2 tablets by 180 tablet 3 11/28/19 12 08/10/2012 ELAVIL) 25 MG tablet mouth nightly. calcium carbonate (aka Take 1 tablet by 0 012 08/10/2012 TUMS EX) CHEW mouth daily (every 24 hours). Calcium Carbonate Take by mouth. 0 02/15/201201/2016 Antacid CHEW dicyclomine (AKA Take 1 tablet by 360 tablet 3 08/11/2011 BENTYL) 20 MG mouth 4 times daily tabletIndications: as needed. Irritable bowel syndrome Norethin-Eth Estrad Take 1 tablet by 112 tablet 4 09/11/2011 08/10/2012 Triphasic (AKA mouth daily (every 24 ORTHO-NOVUM ) hours). Skip placebo 0.5/0.75/1-35 MG-MCG week x 2, allowing tablet for period q 3 months. norethindrone-eth Take 1 tablet by 28 tablet 0 07/05/2011 0 07/19/2016 estradiol (AKA NORINYL, mouth daily TAKE ORTHO NOVUM) 1-35 ACTIVE PILLS DAILY MG-MCG tablet THEN DISCARD INACTIVE PILLS AND IMMEDIATELY START NEXT PACK. TAKING CONTINUOUSLY triamterene-hydrochloro Take 1 tablet by 90 tablet 3 201108/10/2012 thiazide (AKA mouth daily (every 24 MAXZIDE-25) 37.5-25 MG hours). tablet documented as of this encounter Progress Notes Nadia Acosta - 02/15/2012 8:05 PM CDTEncounter addended by: Nadia Acosta RN on: 02/16/2012 3:19 PM
Documentation filed: Demographics Visit Ifrah Brasher RN - 02/15/2012 8:05 PM CDTEncounter addended by: Ifrah Brasher RN on: 02/16/2012 8:51 AM
Documentation filed: IP Notes Section, Demographics Visit Nadia Acosta - 02/15/2012 8:05 PM CDTEncounter addended by: Nadia Acosta RN on: 02/16/2012 5:32 PM
Documentation filed: Orders Haim Carroll MD - 02/15/2012 8:05 PM CDT Quick Note: negative h. pylori documented in this encounter ED Notes Haim Carroll MD - 02/15/2012 8:05 PM CDT Subjective: Patient ID: Idania Duarte is an 36 y.o. female. Chief Complaint: HPI Patient presents to urgent care noting symptoms of abdominal pain with cramping and then diarrhea dark and watery in character. No blood or mucus in the stool. She's had a problem with irritable bowel syndrome since 2000 and in fact has been dosing Bentyl for this. She states the Bentyl does not seem to help things anymore. Today after eating lunch she is noted within 10 minutes has to go to the bathroom in bowels will move loose. She has had some nausea symptoms but no vomiting. Denies any fever orchills symptoms. 2 days ago was up all night with pain more centered in the upper mid abdomen and towards the right side. She has been able to take fluids okay. Denies previous abdominal surgeries. Shehas not noted any recent weight loss. Denies any joint pain or swelling no skin rashes. She's also tried some Zantac as well as Prilosec without relief. 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 Does smoke some cigarettes. No alcoholabuse noted. Family history: Denies family history of colitis or bowel disease. Review of Systems Constitutional: Negative for fever, chills and diaphoresis. HENT: Negative for sore throat. Eyes: Negative. Respiratory: Negative. Cardiovascular: Negative. Gastrointestinal: Positive for nausea, abdominal pain and diarrhea. Negative for heartburn, vomiting, constipation, blood in stool and melena. Genitourinary: Negative for dysuria, hematuria and flank pain. Musculoskeletal: Negative for myalgias, joint pain and falls. Skin: Negative. Neurological: Negative for seizures, loss of consciousness and headaches. Endo/Heme/Allergies: Negative for polydipsia. Does not bruise/bleed easily. Objective: BP 132/84 Pulse 114 Temp(Src) 37.2 ??C (98.9 ??F) (Oral) Resp 16 Physical Exam patient is appearing well-nourished and hydrated in no acute discomfort. Her conjunctiva are noninjected nonicteric. Nares show mild congestion no crusting, nontender over maxillary or frontal sinus. TMs have no erythema or fluid. Pharynx without acute erythema or exudate. Trachea midline without thyromegaly or mass effect. No supraclavicular adenopathy or retracting. Lungs are clear toauscultation and percussion. Heart regular rate and rhythm without murmurs. Abdomen is soft her painis most remarkable in the epigastric area mid upper abdomen, no palpable hepatosplenomegaly is noted. The lower abdomen has mild discomfort on the left side which on deeper palpation radiates to the left upper abdomen, no suprapubic masses or tenderness, no tenderness in the right lower caudate. Extremities show no edema, no joint swelling or skin rashes. Procedures Lab: Urinalysis appears with some hazy pattern there is 5-9 WBCs and will obtain a culture of the urine. CBC had a preliminary with an elevated white count and elevated lymphocytes, normal hemoglobin and platelets. ALT, AST, alk phos, total bili are normal. Amylase 65. H. pylori antibody is pending. Stool testing to include C. difficile testing, culture, ova and parasites. X-Rays: Flat and upright x-ray of the abdomen is ordered and reviewed this shows some stool present in the colon no evidence of obstruction or abnormal calcifications, 2 oval densities are noted in that ascending colon and look like pills. Assessment: Diagnoses of Abdominal pain, unspecified site, Diarrhea, Nausea, Colitis, Irritable bowel syndrome, and Leukocytosis were pertinent to this visit. MDM Plan: Even though she has an elevated white count I am not suspicious for an acute abdomen such as appendicitis or diverticular disease. I'm recommending a consult and evaluation with gastroenterology for further treatment recommendations and referral form was provided for a con-2 visit. If she develops fever or worsening of symptoms or not able to take oral nutrition or persistent vomiting advise to emergency room for further evaluation. I've suggested she continue Zantac dosing twice a day 150 mg. Ifrah Brasher RN - 02/15/2012 8:05 PM CDT Pt contacted and informed GI clinic will be calling her with appt time. Pt verbalizes understanding. documented in this encounter Miscellaneous Notes Miscellaneous - 02/15/2012 8:05 PM CDTNotes Recorded by Haim Carroll MD on 02/27/2012 at 2:40 PMnegative h. pylori BURNER Miscellaneous - 02/15/2012 8:05 PM CDTNotes Recorded by Haim Carroll MD on 02/27/2012 at 2:40 PMnegative h. pylori BURNER Miscellaneous - 02/15/2012 8:05 PM CDTNotes Recorded by Haim Carroll MD on 02/27/2012 at 2:40 PMnegative h. pylori BURNER Medication History - Elmer Holbrook MD - 02/15/2012 8:05 PM CDT INPATIENT MEDS Encounter Date: 02/15/12 metronidazole (FLAGYL) 500 mg tablet Start Date:02/16/12, End Date:03/01/12, Frequency:3 TIMES DAILY *No Administrations Recorded Calcium Carbonate 1,000 mg Tab Start Date:-, End Date:-, Frequency:- *No Administrations Recorded calcium carbonate (TUMS EX) 300 mg (750 mg) chewable tablet Start Date:-, End Date:08/10/12, Frequency:DAILY *No Administrations Recorded documented in this encounter Plan of Treatment Upcoming Encounters Date Type Specialty Care Team Description 05/05/2022 Appointment Chemo Therapy/Infusion Services 09/15/2022 Telemedicine Gastroenterology Eusebio Hainse MD [address] [place] [address] (Wo rk) documented as of this encounter Procedures Procedure Name Priority Date/Time Associated Diagnosis Comme nts URINE CULTURE STAT 02/15/2012 10:44 Abdominal pain, Results for this PM CDT unspecified site procedure are in Leukocytosis the results section. XR ABD FLAT AND Routine 02/15/2012 7:10 PM Abdominal pain, Res ults for this UPRIGHT CDT unspecified site procedure a re in the results section. HELICOBACTER PYLORI STAT 02/15/2012 6:54 PM Abdominal pain, Results for this IGG CDT unspecified site procedure a re in the results section. COMPLETE BLOOD STAT 02/15/2012 6:54 PM Abdominal pain, Resu lts for this COUNT-W/DIFF CDT unspecified site procedure a re in the results section. DIFFERENTIAL STAT 02/15/2012 6:54 PM Results f or this CDT procedure are i n the results section. AMYLASE STAT 02/15/2012 6:54 PM Abdominal pain, Result s for this CDT unspecified site procedure a re in the results section. ALT (SGPT) STAT 02/15/2012 6:54 PM Abdominal pain, Result s for this CDT unspecified site procedure a re in the results section. AST STAT 02/15/2012 6:54 PM Abdominal pain, Result s for this CDT unspecified site procedure a re in the results section. BILIRUBIN, TOTAL STAT 02/15/2012 6:54 PM Abdominal pain, Re sults for this CDT unspecified site procedure a re in the results section. ALKALINE PHOSPHATASE, STAT 02/15/2012 6:54 PM Abdominal richar n, Results for this TOTAL CDT unspecified site procedure a re in the results section. URINE MICROSCOPIC STAT 02/15/2012 6:42 PM Abdominal pain, R esults for this CDT unspecified site procedure a re in the results section. URINALYSIS STAT 02/15/2012 6:42 PM Abdominal pain, Result s for this ROUTINE(MICRO IF POS) CDT unspecified site pr ocedure are in the results section. documented in this encounter Results Urine Culture (02/15/2012 10:44 PM CDT) [facility] gist Method Time Signature Urine Culture No growth HP CONVERSION Comment: ? ORDERED BY: HAIM CARROLL SOURCE: Urine clean catch ?COLLECTED: ??02/15/12 22:44 ? PLATED: ? 02/16/12 15:13 Culture Urine ?FINAL ? 02/17/12 11:22 No growth Specimen (Source) Anatomical Collection Method Collection Time Re ceived Time Location / / Volume Laterality Urine:clean catch 02/15/2012 10:44 PM CDT Haim Carroll MD LAB_1 Performing Organization Address City/State/ZIP Code Phon e Number HP CONVERSION XR Abd Flat And Upright (02/15/2012 7:10 PM CDT) Anatomical Region Laterality Modality Abdomen Other Specimen (Source) Anatomical Location Collection Method / Collectio n Time Received Time / Laterality Volume Narrative 02/15/2012 8:07 PM CDT No free air. ??Bowel gas pattern is nono bstructive. ??No evidence of mass or abnormal calcification in the ab domen. ??There is a moderate amount of stool in the colon. ??2 oval s haped densities projected partially over the right iliac wing may represent an undigested pills in the colon. Procedure Note Alejandro Garces - 12/11/2015Formattin g of this note might be different from the original. No free air. Bowel gas pattern is nonobs tructive. No evidence of mass or abnormal calcification in the ab domen. There is a moderate amount of stool in the colon. 2 oval sha ped densities projected partially over the right iliac wing may represent an undigested pills in the colon. Haim Carroll MD RAD GD (ABNORMAL) Differential (02/15/2012 6:54 PM CDT) [facility] Method Time Signature Absolute 9.0 (H) 1.8 - 8.0 HP CONVERSION Neutrophils k/cmm Absolute 6.7 (H) 1.1 - 4.0 HP CONVERSION Lymphocytes k/cmm Absolute 0.7 0.2 - 0.8 HP CONVERSION Monocytes k/cmm Absolute 0.9 (H) 0.0 - 0.5 HP CONVERSION Eosinophils k/cmm Absolute 0.1 0.0 - 0.2 HP CONVERSION Basophils k/cmm Immature 0.2 0.0 - 0.5 HP CONVERSION Granulocytes % RBC Morphology Normal HP CONVERSION Platelet Estimate Normal HP CONVERSIO N Specimen Anatomical Collection Method Collection Time Receive d Time (Source) Location / / Volume Laterality 02/15/2012 6:54 PM 2 9:12 CDT PM CDT Transcriptions 02/15/2012 8:05 PM CDTNotes Recorded by Haim Carroll MD on 02/27/2012 at 2:40 PMnegative h. pylori Haim Carroll MD LAB_1 Performing Organization Address City/State/ZIP Code Phon e Number HP CONVERSION HELICOBACTER PYLORI IGG (02/15/2012 6:54 PM CDT) [facility] Method Time Signature Helicobacter Negative Negative HP CONVERSION pylori IgG Comment: This assay should be used only for patie nts with symptoms suggestive of gastrointestinal disease. Specimen Anatomical Collection Method Collection Time Receive d Time (Source) Location / / Volume Laterality 02/15/2012 6:54 PM 2 9:13 CDT PM CDT Transcriptions 02/15/2012 8:05 PM CDTNotes Recorded by Haim Carroll MD on 02/27/2012 at 2:40 PMnegative h. pylori Haim Carroll MD LAB_1 Performing Organization Address City/State/ZIP Code Phon e Number HP CONVERSION Amylase (02/15/2012 6:54 PM CDT) athologist Signature Amylase Serum 65 25 - 115 HP CONVERSION U/L Specimen Anatomical Collection Method Collection Time Receive d Time (Source) Location / / Volume Laterality 02/15/2012 6:54 PM 2 6:54 CDT PM CDT Narrative HP CONVERSION - 02/15/2012 7:30 PM CDT Performed at [facility], [address] [place] [address] Haim Carroll MD LAB_1 Performing Organization Address [facility] Phon e Number HP CONVERSION Bilirubin, Total (02/15/2012 6:54 PM CDT) athologist Signature Bilirubin Total 0.2 0.2 - 1.2 HP CONVERSION mg/dL Specimen Anatomical Collection Method Collection Time Receive d Time (Source) Location / / Volume Laterality 02/15/2012 6:54 PM 2 6:54 CDT PM CDT Narrative HP CONVERSION - 02/15/2012 7:30 PM CDT Performed at [facility], [address] [place] [address] Haim Carroll MD LAB_1 Performing Organization Address [facility] Phon e Number HP CONVERSION Alkaline Phosphatase, Total (02/15/2012 6:54 PM CDT) athologist Signature Alk Phos 77 25 - 135 U/L HP CONVERSION Specimen Anatomical Collection Method Collection Time Receive d Time (Source) Location / / Volume Laterality 02/15/2012 6:54 PM 2 6:54 CDT PM CDT Narrative HP CONVERSION - 02/15/2012 7:30 PM CDT Performed at [facility], [address] [place] [address] Haim Carroll MD LAB_1 Performing Organization Address [facility] Phon e Number HP CONVERSION AST (02/15/2012 6:54 PM CDT) [facility] gist Method Time Signature Aspartate 24 0 - 45 HP CONVERSION Aminotransferase U/L Specimen Anatomical Collection Method Collection Time Receive d Time (Source) Location / / Volume Laterality 02/15/2012 6:54 PM 2 6:54 CDT PM CDT Narrative HP CONVERSION - 02/15/2012 7:30 PM CDT Performed at [facility], [address] [place] [address] Haim Carroll MD LAB_1 Performing Organization Address [facility] Phon e Number HP CONVERSION ALT (SGPT) (02/15/2012 6:54 PM CDT) [facility] Method Time Signature Alanine 26 4 - 55 HP CONVERSION Aminotransferase U/L Specimen Anatomical Collection Method Collection Time Receive d Time (Source) Location / / Volume Laterality 02/15/2012 6:54 PM 2 6:54 CDT PM CDT Narrative HP CONVERSION - 02/15/2012 7:30 PM CDT Performed at [facility], [address] [place] [address] Haim Carroll MD LAB_1 Performing Organization Address [facility] Phon e Number HP CONVERSION (ABNORMAL) Hemogram/Plts/Diff (02/15/2012 6:54 PM CDT) [facility] Method Time Signature White Blood Cell 17.4 (H) 3.8 - HP CONVERSION Count 11.0 k/cmm Red Blood Cell 4.72 3.70 - HP CONVERSION Count 5.20 m/cmm Hemoglobin 14.5 11.8 - HP CONVERSION 15.5 g/dL Hematocrit 43.1 35.0 - HP CONVERSION 46.0 % Mean Corpuscular 91.3 80.0 - HP CONVERSION Volume 100.0 fL RDW 12.3 11.0 - HP CONVERSION 15.0 % Platelet Count 338 140 - 450 HP CONVERSION k/cmm Specimen Anatomical Collection Method Collection Time Receive d Time (Source) Location / / Volume Laterality 02/15/2012 6:54 PM 2 9:12 CDT PM CDT Transcriptions 02/15/2012 8:05 PM CDTNotes Recorded by Haim Carroll MD on 02/27/2012 at 2:40 PMnegative h. pylori Haim Carroll MD LAB_1 Performing Organization Address [facility] Phon e Number HP CONVERSION (ABNORMAL) URINE MICROSCOPIC (02/15/2012 6:42 PM CDT) [facility] Method Time Signature Urine WBC 5-9 (A) 0 - 4 HP CONVERSION /HPF Urine RBC None seen 0 - 2 HP CONVERSION /HPF Bacteria Urine Few (A) /HPF HP CONVERSION Epithelial Few /HPF HP CONVERSION Cells Specimen Anatomical Collection Method Collection Time Receive d Time (Source) Location / / Volume Laterality 02/15/2012 6:42 PM 2 7:14 CDT PM CDT Narrative HP CONVERSION - 02/15/2012 7:23 PM CDT Performed at [facility], [address] [place] [address] Haim Carroll MD LAB_1 Performing Organization Address [facility] Phon e Number HP CONVERSION (ABNORMAL) URINALYSIS ROUTINE(MICRO IF POS) (02/15/2012 6:42 PM CDT) [facility] Method Time Signature Urine Type Urine:clean HP CONVERSION cat Turbidity Hazy (A) Clear HP CONVERSION U BILI Negative Negative HP CONVERSION Blood Urine Negative Negative HP CONVERSION Glucose, Negative Neg-30 HP CONVERSION Qualitative U mg/dL Ketones Negative Negative HP CONVERSION Leukocyte Negative Negative HP CONVERSION Esterase Urine Nitrite Urine Negative Negative HP CONVERSION pH Urine 7.0 5.0 - 8.0 HP CONVERSION Protein Urine Negative Neg - Trace HP CONVERSION mg/dL U Specific 1.020 1.005 - HP CONVERSION [place] 1.030 Urobilinogen Negative Negative HP CONVERSION Urine Eu/dL Specimen Anatomical Collection Method Collection Time Receive d Time (Source) Location / / Volume Laterality Urine: 02/15/2012 6:42 PM 2 7:14 CDT PM CDT Narrative HP CONVERSION - 02/15/2012 7:23 PM CDT Performed at [facility], [address] [place] [address] Haim Carroll MD LAB_1 Performing Organization Address [facility] Phon e Number HP CONVERSION documented in this encounter Visit Diagnoses Diagnosis Abdominal pain, unspecified site Diarrhea Nausea Nausea alone Colitis Other and unspecified noninfectious mónica roenteritis and colitis Irritable bowel syndrome Leukocytosis ([facility]) Leukocytosis, unspecified Triage Assessment Note - Jo Reis RN - 02/15/2012 5:51 PM CDT Has been feeling nauseated after taking the Bentyl documented in this encounter Care Teams Shirt Closer Relationship Specialty Start Date End Date Munira Combs PA-C PCP - General 09/25/10 03/14/15 [address] [place] [address] documented as of this encounter
--- OUTSIDE RECORDS SUMMARY | 2022-03-20 16:17 | XMS_ITS | Encounter Summary ---
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 documented in this encounter Results MM US Breast Unilat ([facility]BC) (11/03/2010 7:42 AM CDT) Anatomical Region Laterality Modality Breast Ultrasound Specimen (Source) Anatomical Location Collection Method / Collectio n Time Received Time / Laterality Volume Narrative 11/03/2010 7:48 AM CDT Left breast ultrasound was obtained for clinical pain laterally. ??The ultrasound shows only normal parenchyma. ?? No sonographic evidence of malignancy. ACR-BIRADS CATEGORY 2: ??Benign finding. Dictating MANPREET BUTT RADIOLOGIST Procedure Note Manpreet House MD - 02/16/2016 Left breast ultrasound was obtained for clinical pain laterally. The ultrasound shows only normal parenchyma. No sonographic evidence of malignancy. ACR-BIRADS CATEGORY 2: Benign finding. Dictating MANPREET BUTT RADIOLOGIST Coral Echevarria PA-C RAD STEPHANE documented in this encounter Visit Diagnoses Not on filedocumented in this encounter Care Teams Lpn Cma Relationship Specialty Start Date End Date Munira Combs PA-C PCP - General 09/25/10 03/14/15 [address] [place] [address] documented as of this encounter
--- OUTSIDE RECORDS SUMMARY | 2022-03-20 16:17 | XMS_ITS | Encounter Summary ---
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 [facility] faxed over today. Munira Ford PA-C - 01/12/2011 8:44 AM CDT Please ask her to go to lab for creat (401.9) since she is not current with that. I think she uses [facility] since she works there. No need to fast. Rx sent. Le Pickard, RN - 01/11/2011 2:38 PM CDT Will forward to MD to address refill. Last seen 07/04/10 (physical). Last crea 05/30/09. Currently no appts scheduled. documented in this encounter Plan of Treatment Upcoming Encounters Date Type Specialty Care Team Description 05/05/2022 Appointment Chemo Therapy/Infusion Services 09/15/2022 Telemedicine Gastroenterology Eusebio Haines MD [address] [place] [address] (Wo rk) documented as of this encounter Visit Diagnoses Not on filedocumented in this encounter Care Teams Paint Stripper Relationship Specialty Start Date End Date Munira Combs PA-C PCP - General 09/25/10 03/14/15 [address] [place], [place] [id number] documented as of this encounter
--- OUTSIDE RECORDS SUMMARY | 2022-03-20 16:17 | XMS_ITS | Encounter Summary ---
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 I informed her of positive result, sent prescription to [facility] per herrequest. Patient verbalized understanding. Nadia Acosta - 02/16/2012 3:21 PM CDT Quick Note: Left message for patient to call back. When she calls back, please inform her the C. Diff did come back positive. Please find which pharmacy we should send her antibiotic to. Per Aftab De Souza, she should take Flagyl 500mg po tid x14d. documented in this encounter Miscellaneous Notes Miscellaneous - 08/04/2016 3:20 PM CSTNotes Recorded by Nadia Acosta RN on 02/16/2012 at 5:32 PMPatient called back. I informed her of positive result, sent prescription to [facility] per her request. Patient verbalized understanding.------Notes Recorded by Nadia Acosta RN on 02/16/2012 at 3:21 PM Left message for patient to call back. When she calls back, please inform her the C. Diff did come back positive. Please find which pharmacy we should send her antibiotic to. Per Aftab De Souza, she should take Flagyl 500mg po tid x14d. ER EEL documented in this encounter Plan of Treatment Upcoming Encounters Date Type Specialty Care Team Description 05/05/2022 Appointment Chemo Therapy/Infusion Services 09/15/2022 Telemedicine Gastroenterology Eusebio Haines MD [address] [place] [address] (Wo rk) documented as of this encounter Procedures Procedure Name Priority Date/Time Associated Comments Diagnosis OVA AND PARASITE Routine 02/16/2012 7:13 AM Diarrhea Resul ts for this CDT procedure are i n the results section. CLOSTRIDIUM DIFF BY Routine 02/16/2012 7:13 AM Diarrhea Re sults for this PCR - OUTPATIENT CDT procedure a re in the results section. STOOL CULTURE Routine 02/16/2012 7:13 AM Diarrhea Results for this CDT procedure are i n the results section. documented in this encounter Results Stool Culture (02/16/2012 7:13 AM CDT) [facility] Method Time Signature Stool Culture No HP CONVERSION Salmonella, Shigella, Campylobacte r, or E coli 0157~isolate d.~Culture screened for Aeromonas, Plesiomonas, and~Vibrio with negative results. If Yersinia is suspected,~jim portillo submit a second culture and request Yersinia. Comment: ? ORDERED BY: HAIM CARROLL SOURCE: Stool ?COLLECTED: ??02/16/12 07:13 ? PLATED: ? 02/16/12 13:23 Culture Stool ?FINAL ? 02/18/12 10:15 No Salmonella, Shigella, Campylobacter, or E coli 0157 isolated. Culture screened for Aeromonas, Plesiom onas, and Vibrio with negative results. ??If Yers inia is suspected, please submit a second culture and requ est Yersinia. Specimen (Source) Anatomical Collection Method Collection Time Re ceived Time Location / / Volume Laterality Stool: 02/16/2012 7:13 AM CDT Haim Carroll MD LAB_1 Performing Organization Address City/State/ZIP Code Phon e Number HP CONVERSION Ova and Parasite (02/16/2012 7:13 AM CDT) Component Value Ref Test Analysis Performed At [facility] gist Range Method Time Signature Ova & Parasite No amoeba, ova or HP CONV ERSION Concentrate parasites seen upon concentrated smear.~No trophozoites or cysts seen on permanent stain preparation.~Scre en negative for Cryptosporidia and Cyclospora. Comment: ? ORDERED BY: HAIM CARROLL SOURCE: Stool ?COLLECTED: ??02/16/12 07:13 ? PLATED: ? 02/16/12 13:20 Ova and Parasite Exam ?FINAL ? 02/19/12 14:08 No amoeba, ova or parasites seen upon c oncentrated smear. No trophozoites or cysts seen on perman ent stain preparation. Screen negative for Cryptosporidia and Cyclospora. Specimen (Source) Anatomical Collection Method Collection Time Re ceived Time Location / / Volume Laterality Stool: 02/16/2012 7:13 AM CDT Haim Carroll MD LAB_1 Performing Organization Address City/[facility]/ZIP Code Phon e Number HP CONVERSION (ABNORMAL) Clostridium Diff by PCR - Outpatient (02/16/2012 7:13 AM CDT) [facility] Method Time Signature Lab N/O Positive HP CONVERSION Clostridium (AA) Diff By PCR Comment: Reference range: Not Detected Method Description (BD): ?? Rapid, real- time PCR assay to detect tcdB (the Clostridium difficile toxin B gene) in human liquid or soft stools. Specimen Anatomical Collection Method Collection Time Receive d Time (Source) Location / / Volume Laterality 02/16/2012 7:13 AM 2 CDT 12:28 PM CDT Narrative HP CONVERSION - 02/16/2012 2:50 PM CDT .Positive C.diff called to and read back by Nadia mason,.02/16/2012,15:02, by BETTY Dove 08/04/2016 3:20 PM CSTNotes Recorded by Nadia Acosta RN on 02/16/2012 at 5:32 PMPatient called back. I informed her of positive result, sent prescription to [facility] per her request. Patient verbalized understanding.------ Notes Recorded by Nadia Acosta RN on at 3:21 PMLeft message for patient to call back. When she calls back, please inform her the C. Diff did come ba ck positive. Please find which pharmacy we should send her antibiotic to. Per Aftab De Souza, she should take Flagyl 500mg po tid x14d. Haim Carroll MD LAB_1 Performing Organization Address City/[facility] Phon e Number HP CONVERSION documented in this encounter Visit Diagnoses Diagnosis Diarrhea documented in this encounter Care Teams Jig Fitter Relationship Specialty Start Date End Date Munira Combs PA-C PCP - General 09/25/10 03/14/[address] [place] [id number] documented as of this encounter
--- OUTSIDE RECORDS SUMMARY | 2022-03-20 16:17 | XMS_ITS | Encounter Summary ---
:1975 Author Organization [employer] Address [address] [place] [address] Care Team Providers Name Role Phone Sherie Baez PA-C Primary Care Provider Reason for Visit Reason Comments Other Encounter Details Date Type Department Care Team Description 07/18/2010 Telephone [facility] Sherie Falcon PA-C Other [address] [employer] [facility] [address] [place] [address] [place] [address] (Wo rk) Social History Tobacco Use Types Packs/Day Years Used Date Smoking Tobacco: Never Assessed Sex Assigned at Date Recorded Female 05/09/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 Member ID #: (if applicable) Drug Name/Strength: Nortrel 1-35 tab Sig/Quantity:take one tab daily, take continuosly Question:We have a rx on file with quantity of #112 not #84. Please verify Pharmacy Seq #:print to [facility] Pharmacy Name-Phone/Fax #: [facility] [phone]/City:[place] Clinician Name:Chrissy Baez *ECODE~PNRXQ Created on 18Jul2010 1:56pm by CATIE AVILEZ On 18Jul2010 2:04pm SHERIE BAEZ wrote: rx sent. Acknowledged by SHERIE BAEZ on 2:04pm S PROJECT ENGINEER documented in this encounter Plan of Treatment Upcoming Encounters Date Type Specialty Care Team Description 05/05/2022 Appointment Chemo Therapy/Infusion Services 09/15/2022 Telemedicine Gastroenterology Eusebio Haines MD [address] [place] [address] (Wo rk) documented as of this encounter Visit Diagnoses Not on filedocumented in this encounter Care Teams Ux Consultant Relationship Specialty Start Date End Date Sherie Baez PAZitaC PCP - General 09/25/10 03/14/15 [address] [place], [place] [id number] documented as of this encounter
--- OUTSIDE RECORDS SUMMARY | 2022-03-20 16:17 | XMS_ITS | Encounter Summary ---
:1975 Author Organization [employer] Address [address] [place] [address] Care Team Providers Name Role Phone Munira Combs PA-C Primary Care Provider Reason for Visit Reason Comments Appt. Scheduled Encounter Details Date Type Department Care Team Description 02/16/2012 Telephone [facility] Eusebio Mcmanus MD Appt. Scheduled Gastroenterology [address] 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 documented as of this encounter Nursing Notes Mitchell Tinajero RN - 02/16/2012 9:08 AM CDT called pt and informed of CON2 on Sunday02/19/12 at 2:30 documented in this encounter Plan of Treatment Upcoming Encounters Date Type Specialty Care Team Description 05/05/2022 Appointment Chemo Therapy/Infusion Services 09/15/2022 Telemedicine Gastroenterology Eusebio Haines MD [address] [place] [address] (Wo rk) documented as of this encounter Visit Diagnoses Not on filedocumented in this encounter Care Teams Cadastral Surveyor Relationship Specialty Start Date End Date Munira Combs PA-C PCP - General 09/25/10 03/14/15 [address] [place] [address] documented as of this encounter
--- OUTSIDE RECORDS SUMMARY | 2022-03-20 16:17 | XMS_ITS | Encounter Summary ---
:1975 Author Organization [employer] Address [address], [place] [address] Care Team Providers Name Role Phone Munria Combs PA-C Primary Care Provider Reason for Visit Reason Comments Annual Exam Encounter Details Date Type Department Care Team Description 08/11/2011 Office Visit [facility] Dahiana Pulido Well fem matthew exam with routine gynecological exam (Primary Dx); Pietro GAMBLE HTN (hypertension); [address] Irritable bowel syndrome; [place] [address] [address] Chronic headaches [phone] [place] [address] Social History Tobacco Use Types Packs/Day Years Used Date Smoking Tobacco: Never Assessed Sex Assigned at Date Recorded Female 05/09/2021 7:19 PM UROLOGIC NURSE documented as of this encounter Last Filed Vital Signs Vital Sign Reading Time Taken Comments Blood Pressure 126/88 08/11/2011 1:00 PM UROLOGIC NURSE Pulse 112 08/11/2011 1:00 PM UROLOGIC NURSE Temperature - - Respiratory Rate - - Oxygen Saturation - - Inhaled Oxygen Concentration - - Weight 87.1 kg (192 lb) 08/11/2011 1:00 PM UROLOGIC NURSE Height 167.6 cm (5' 6) 08/11/2011 1:00 PM UROLOGIC NURSE Body Mass Index 30.99 08/11/2011 1:00 PM UROLOGIC NURSE documented in this encounter Patient Instructions Patient InstructionsDahiana Pulido - 08/11/2011 1:26 PM CST All results will be mailed to you. Your pap smear was updated today and will be due again in July 2014. All of your medications have been refilled. Continue with routine dermatology checks. OGIC NURSE documented in this encounter Progress Notes Dahiana Pulido - 08/11/2011 1:40 PM CST Subjective: Idania Duarte is a 36 y.o. female and is here for a comprehensive physical exam. The patient reports no problems. Needs medication refills. History: LMP: Patient's last menstrual period was 06/08/2011. Takes OCPs continuously for 3 months at a time. Last pap date: 05/07/2008 Abnormal pap? no : 0 Para: 0 Any STD's in the past? none Patient's medications, allergies, past medical, surgical, social and family histories were reviewed and updated as appropriate. Review of Systems A comprehensive review of systems was negative. Objective: Vitals: Reviewed in EMR. BMI 31.1 General Appearance: Alert, cooperative, no distress, appears [...] Normal female without lesion, discharge or tenderness Rectal: Not examined Extremities: Extremities normal, atraumatic, no cyanosis or edema Pulses: 2+ and symmetric all extremities Skin: Skin color, texture, turgor normal, no rashes Lymph nodes: Cervical, supraclavicular, and axillary nodes normal Neurologic: CNII-XII intact, normal strength, sensation and reflexes throughout Assessment: Healthy female exam. HTN. Chronic headaches. IBS. Tobacco abuse. Plan: 1. Pap smear. Lipid profile, glucose. Immunizations up-to-date. 2. Routine hypertensive labs. Maxide refilled. 3. Headaches are well-controlled with current prophylactic medication. Amitriptyline refilled. 4. IBS managed with Bentyl. Refill provided. 5. Smoking cessation discussed and encouraged. 6. Patient Counseling: --Nutrition: Stressed importance portion control. --Discussed the issue of calcium supplement. --Exercise: Stressed the importance of regular exercise. --Substance Abuse: Discussed cessation of tobacco use. --Sexuality: Discussed avoidance of unintended . --Injury prevention: Discussed safety belts, safety helmets, sunscreen. --Dental health: Discussed importance of regular tooth brushing, flossing, and dental visits. --Immunizations reviewed. 7. Follow up next physical in 1 year . 8. Dermatology follow-up due in approximately 2 months. documented in this encounter Plan of Treatment Upcoming Encounters Date Type Specialty Care Team Description 05/05/2022 Appointment Chemo Therapy/Infusion Services 09/15/2022 Telemedicine Gastroenterology Eusebio Haines MD [address] [place] [address] (Wo rk) documented as of this encounter Procedures Procedure Name Priority Date/Time Associated Diagnosis Comme nts ANATOMICAL PATH Routine 08/11/2011 1:41 PM Result s for this LIQUID BASED UROLOGIC NURSE procedure are i n the results section. PAP SMEAR SCREENING Routine 08/11/2011 1:41 PM Well female exa m with Results for this UROLOGIC NURSE routine gynecological proced ure are in exam the results section. documented in this encounter Results Pap Smear (08/11/2011 1:41 PM UROLOGIC NURSE) Specimen (Source) Anatomical Collection Method Collection Time Re ceived Time Location / / Volume Laterality 08/11/2011 1:41 PM UROLOGIC NURSE Narrative HP CONVERSION - 08/16/2011 1:00 PM UROLOGIC NURSE Final GYNECOLOGICAL CYTOLOGY REPORT Pathology #: [id number] ?Date Obtained: 08/11/2011 ? Date Received: 08/14/2011 INTERPRETATION/RESULTS: Negative for Intraepithelial Lesion or M alignancy SPECIMEN ADEQUACY: Satisfactory for Evaluation. ??Endocervi per cells/transformation zone component present. Verified on 08/16/2011 ??by JARROD CASTRO(ASCP) (electronic signature) CLINICAL NOTES: ? LMP: not stated. LIQUID BASED PAP SMEAR SPECIMEN TYPE: ?CERVICAL [...] s may occur. ? End of Report Dahiana Pulido PA-C LAB_1 Performing Organization Address City/State/ZIP Code Phon e Number HP CONVERSION Pap Smear Screening (08/11/2011 1:41 PM UROLOGIC NURSE) P athologist Signature PAP Routine Collected HP CONVERSION Specimen Anatomical Collection Method Collection Time Receive d Time (Source) Location / / Volume Laterality 08/11/2011 1:41 PM 2 5:15 UROLOGIC NURSE AM UROLOGIC NURSE Dahiana Pulido PA-C LAB_1 Performing Organization Address City/State/[facility] Phon e Number HP CONVERSION documented in this encounter Visit Diagnoses Diagnosis Well female exam with routine gynecologi per exam - Primary Routine gynecological examination HTN (hypertension) (HRC) Unspecified essential hypertension Irritable bowel syndrome Chronic headaches Headache documented in this encounter Care Teams Metallographic Technician Relationship Specialty Start Date End Date Munira Combs PA-C PCP - General 09/25/10 03/14/15 [address] [place] [address] documented as of this encounter
--- OUTSIDE RECORDS SUMMARY | 2022-03-20 16:17 | XMS_ITS | Encounter Summary ---
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 Munira Combs PA-C - 11/28/2011 12:04 PM CDT Go back to taking 2. Rx sent reflecting higher quantity. Follow up PRN. MIT Helene Hand - 11/28/2011 11:48 AM CDT Pt. was on2 tabs nightly since going to one tab the Pt is having headaches again. Please advise Thanks documented in this encounter Plan of Treatment Upcoming Encounters Date Type Specialty Care Team Description 05/05/2022 Appointment Chemo Therapy/Infusion Services 09/15/2022 Telemedicine Gastroenterology Eusebio Haines MD [address] [place] [address] (Wo rk) documented as of this encounter Visit Diagnoses Not on filedocumented in this encounter Care Teams Manager Poker Relationship Specialty Start Date End Date Munira Combs PA-C PCP - General 09/25/10 03/14/15 [address] [place], [place] [id number] documented as of this encounter
--- OUTSIDE RECORDS SUMMARY | 2022-03-20 16:17 | XMS_ITS | Encounter Summary ---
:1975 Author Organization [employer] Address [address], [place] [address] Care Team Providers Name Role Phone Munira Comsb PA-C Primary Care Provider Encounter Details Date Type Department Care Team Description 01/13/2011 Notes/Orders [facility] Munira Combs, Unspecif ied essential Medicine MAVIS hypertension (Primary [address] [facility] [address] ) [place] [address] [facility] [phone] [place], [place] [phone] Social History Tobacco Use Types Packs/Day Years Used Date Smoking Tobacco: Never Assessed Sex Assigned at Date Recorded Female 05/09/2021 7:19 PM OPERATIONS SCHEDULER documented as of this encounter Plan of Treatment Upcoming Encounters Date Type Specialty Care Team Description 05/05/2022 Appointment Chemo Therapy/Infusion Services 09/15/2022 Telemedicine Gastroenterology Eusebio Haines MD [address] [place], [place] [address] (Wo rk) documented as of this encounter Visit Diagnoses Diagnosis Unspecified essential hypertension (HRC) - Primary Unspecified essential hypertension documented in this encounter Care Teams Community Outreach Manager Relationship Specialty Start Date End Date Munira Combs PA-C PCP - General 09/25/10 03/14/15 [address] [place], [place] [phone] documented as of this encounter
--- OUTSIDE RECORDS SUMMARY | 2022-03-20 16:17 | XMS_ITS | Encounter Summary ---
:1975 Author Organization [employer] Address [address], [place] [address] Care Team Providers Name Role Phone Sherie Baez PA-C Primary Care Provider Encounter Details Date Type Department Care Team Description 07/04/2010 Office Visit [facility] Sherie Falcon PA-C [address] [address] [place] [address] [phone] (Wo rk) Social History Tobacco Use Types Packs/Day Years Used Date Smoking Tobacco: Never Assessed Sex Assigned at Date Recorded Female 05/09/2021 7:19 PM SCHOOL [employer]ERIA [employer]OOK [employer] documented as of this encounter Last Filed Vital Signs Vital Sign Reading Time Taken Comments Blood Pressure 138/84 07/04/2010 1:48 PM [employer]OL [employer] Pulse 80 07/04/2010 1:48 PM [employer] Temperature - - Respiratory Rate - - Oxygen Saturation - - Inhaled Oxygen Concentration - - Weight 90.5 kg (199 lb 9.3 oz) 07/04/2010 1:48 PM C: 90 .5kg [employer] Height 168.3 cm (5' 6.25) 07/04/2010 1:48 PM C: 168.3c m [employer] Body Mass Index 31.97 07/04/2010 1:48 PM [employer] documented in this encounter Progress Notes Sherie Baez PA-C - 07/04/2010 12:01 AM CST NAME: IGGY DUARTE MR#: [id number] DICTATING CLINICIAN: SHERIE BAEZ, PAC CLINIC PHYSICAL DATE OF VISIT: 07-04-2010 SUBJECTIVE: Iggy is a 35-year-old female who comes to the clinic today for a physical. PAST MEDICAL HISTORY: HTN and seasonal leg edema, on HCTZ Obesity. Has lost and gained back weight. Had an abnormal melanocytic mole and a BCC removed. concussion from falling off a horse. headaches which are well-controlled with amitriptyline. Irritable bowel syndrome well-controlled on dicyclomine PRN. No history of DVT or PE. No history of abnormal Paps. She is . Tonsillectomy. MEDICATIONS: Reviewed and updated in the health profile in [employer] today. ADR/ALLERGIES: REVIEWED AND UPDATED IN THE HEALTH PROFILE IN [employer] TODAY. FAMILY HISTORY: Negative for heart disease, breast, colon cancer, and diabetes. 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 She drinks alcohol occasionally, REVIEW OF SYSTEMS: Complete review of systems negative. OBJECTIVE: VS: BP: 134/80. P: 82. Ht: 66.25 in. Wt: 199.6. CONSTITUTIONAL: Sitting comfortably, appears well. Eyes: Sclerae and conjunctivae clear. ENT: TMs nonerythematous. Nasal mucosa non-congested. Oropharynx clear. NECK: No LAD. LUNGS: Clear to auscultation. HEART: Regular rate and rhythm. BREASTS: No palpable masses. ABDOMEN: Soft, nontender. : External genitalia normal. pap deferred. No adnexal masses or tenderness. Uterus is small and mobile. EXTREMITIES: 2+ pulses upper and lower extremities without edema. SKIN: There are a couple of darker moles, one below the left breast and one on the left abdomen. ASSESSMENT: 1. Health maintenance exam. 2. Hypertension, not controlled 3. Obesity 4. Contraceptive surveillance 5. IBS 6. Headaches. PLAN: No pap this year due to low risk. Due next year. Refilled medications including dicyclomine, amitriptyline, Necon. D/C HCTZ (not effective) start Maxzide. Check creat,lytes, TSH, CHOL, glu, Vit D. BP check with lytes in 2 weeks. Restart exercise. Tdap given with immun counseling. 1-10-2011 [employer] documented in this encounter Plan of Treatment Upcoming Encounters Date Type Specialty Care Team Description 05/05/2022 Appointment Chemo Therapy/Infusion Services 09/15/2022 Telemedicine Gastroenterology Eusebio Haines MD [address] [place] [address] (Wo rk) documented as of this encounter Visit Diagnoses Not on filedocumented in this encounter Care Teams Parachute Line Tier Relationship Specialty Start Date End Date Sherie Baez PA-C PCP - General 09/25/10 03/14/15 [address] [place], [place] [phone] documented as of this encounter
--- OUTSIDE RECORDS SUMMARY | 2022-03-20 16:17 | XMS_ITS | Encounter Summary ---
:1975 Author Organization [facility] Address [address], [place] [address] Care Team Providers Name Role Phone Munira Combs PA-C Primary Care Provider Reason for Visit Reason Comments Annual Exam Encounter Details Date Type Department Care Team Description 08/10/2012 Office Visit Munira Thompson, Annual p hysical exam (Primary Dx); Medicine [facility] Irritable bowel syndrome; [address] [address] [facility] HTN (hypertension); [place] [address] [address] Tobacco abuse; [phone] [place], [place] Chronic he adaches; [address] Contraceptive management Social History Tobacco Use Types Packs/Day Years Used Date Smoking Tobacco: Never Assessed Sex Assigned at Date Recorded Female 05/09/2021 7:19 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 documented as of this encounter Last Filed Vital Signs Vital Sign Reading Time Taken Comments Blood Pressure 126/72 08/10/2012 8:03 AM ENROLLMENT COUNSELOR Pulse - - Temperature - - Respiratory Rate - - Oxygen Saturation - - Inhaled Oxygen Concentration - - Weight 88.6 kg (195 lb 4 oz) 08/10/2012 8:03 AM ENROLLMENT COUNSELOR Height 168.9 cm (5' 6.5) 08/10/2012 8:03 AM ENROLLMENT COUNSELOR Body Mass Index 31.04 08/10/2012 8:03 AM ENROLLMENT COUNSELOR documented in this encounter Patient Instructions Patient InstructionsStMunira zuniga PA-C - 08/10/2012 8:13 AM CST Please call the dermatology/skin dept. at [phone] to schedule your appointment. LLMENT COUNSELOR documented in this encounter Progress Notes Munira Combs PA-C - 08/10/2012 8:29 AM CST Idania Duarte [id number] 1975 37 y.o..female here for routine physical exam Other concerns: none Needs contraceptive refill (needs new brand due to formulary change) Needs other meds refilled All chronic conditions well controlled currently Patient Active Problem List Diagnoses Code ??? Irritable Bowel Syndrome 564.1 ??? Melanoma Trunk 172.5 ??? Chronic headaches 784.0FV ??? BCC (basal cell carcinoma), leg 173.71D ??? HTN (hypertension) 401.9AF ??? Concussion 850.9H ??? Obesity 278.00M ??? Tobacco abuse 305.1U ??? Hx of tonsillectomy V45.89ASR Past Medical History Diagnosis Date ??? Chronic headaches 08/11/2011 ??? Irritable bowel syndrome 11/29/2002 ??? 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 BCC (basal cell carcinoma), leg 08/11/2011 ??? HTN (hypertension) 08/11/2011 ??? Concussion 08/11/2011 ??? Obesity 08/11/2011 ??? Hx of tonsillectomy 08/11/2011 ??? Clostridium difficile colitis 01/2012 Past Surgical History Procedure Date ??? Tonsillectomy ??? 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 Smoking status: Current Some Day Smoker -- 15 years Types: Cigarettes ??? Smokeless tobacco: Never Used Comment: Smoking History Packs/day: ??? Alcohol Use: No ??? Drug Use: No ??? Sexually Active: Yes -- Male partner(s) Control/ Protection: OCP Other Topics Concern ??? City Water Yes ??? Exercise Yes ??? Seat Belt Yes ??? Special Diet No ??? Weight Concern Yes Social History Narrative ??? None Outpatient prescriptions prior to encounter Medication Sig Dispense Refill ??? amitriptyline (ELAVIL) 25 mg tablet Take 1-2 tablets by mouth nightly. 180 tablet 3 ??? calcium carbonate (TUMS EX) 300 mg (750 mg) chewable tablet Take 1 tablet by mouth daily (every 24 hours). ??? Calcium Carbonate 1,000 mg Tab Take by mouth. ??? dicyclomine (BENTYL) 20 mg tablet Take 1 tablet by mouth 4 times daily as needed. 360 tablet 3 ??? MULTI-VITAMIN ORAL Take 1 tablet by mouth daily (every 24 hours). ??? norethindrone-ethinyl estradiol (NORTREL 1/35, 28,) 1-35 mg-mcg per tablet Take 1 tablet by mouth daily (every 24 hours). Skip placebo week x 2, allowing for period q 3 months. 112 tablet 4 ??? op medications reviewed ??? triamterene-hydrochlorothiazide (MAXZIDE-25) 37.5-25 mg per tablet Take 1 tablet by mouth daily (every 24 hours). 90 tablet 3 No Known Allergies Most Recent Immunizations Administered Date(s) Administered ??? H1N1 Influenza Live Intranasal 04/13/2009 ??? Hep B Adult Vaccine (20+ yrs) 20mcg 02/08/2006 ??? Hepatitis B Virus Vacc Recom/Medic Con 08/09/2001 ??? Influenza TIV (36+ mos) 03/10/2011 ??? Influenza TIV 0.5ml (36+ mos) 03/10/2010 ??? Influenza TIV 36+ mos 03/04/2012 ? ? Td Adult (>7 years) 11/30/2003 ??? Tdap (Adacel) 07/04/2010 No LMP recorded. Patient is not currently having periods (Reason: Continuous hormonal contraception). Complete ROS negative with any exceptions listed here: N/A OBJECTIVE Vitals: BP 126/72 Ht 5' 6.5 (1.689 m) Wt 195 lb 4 oz (88.565 kg) BMI 31.04 kg/m2 HEENT: Head is normocephalic. External ears normal, [...] No palpable masses or axillary LAD, bilaterally :deferred this year ASSESSMENT: 1. Annual physical exam (V70.0E) 2. Irritable bowel syndrome (564.1) dicyclomine (BENTYL) 20 mg tablet 3. HTN (hypertension) (401.9AF) triamterene-hydrochlorothiazide (MAXZIDE-25) 37.5-25 mg per tablet, Electrolytes (NA, K, CL, Bicarb), Creatinine 4. Tobacco abuse (305.1U) 5. Chronic headaches (784.0FV) 6. Contraceptive management (V25.9B) PLAN: Medication refills Pap: deferred this year Labs: lytes/creat. Lipids/glucose current/normal Consults requested: will need derm check again due to personal history of skin cancer Immunizations: up to date Counseling regarding quitting smoking. She smokes 2-3 cigs per week. Increased risk of CV events with OCPs, regular exercise, healthy diet documented in this encounter Plan of Treatment Upcoming Encounters Date Type Specialty Care Team Description 05/05/2022 Appointment Chemo Therapy/Infusion Services 09/15/2022 Telemedicine Gastroenterology Eusebio Haines MD [address] [place] [address] (Wo rk) documented as of this encounter Visit Diagnoses Diagnosis Annual physical exam - Primary Routine general medical examination at a health care facility Irritable bowel syndrome HTN (hypertension) ([facility]) Unspecified essential hypertension Tobacco abuse ([facility]) Tobacco use disorder Chronic headaches Headache Contraceptive management Unspecified contraceptive management documented in this encounter Care Teams Operations Representative Relationship Specialty Start Date End Date Munira Combs PA-C PCP - General 09/25/10 03/14/15 [address] [place] [address] documented as of this encounter
--- OUTSIDE RECORDS SUMMARY | 2022-03-20 16:17 | XMS_ITS | Encounter Summary ---
:1975 Author Organization [employer] Address [address], [place] [address] Care Team Providers Name Role Phone Sherie Baez PA-C Primary Care Provider Reason for Referral Specialty Diagnoses / Procedures Referred By Contact Refer red To Contact Haim Petty MD [address] [place], [place] [address] Referral ID Status Reason Start Date Expiration Date Visits Requ ested Visits Authorized Encounter Details Date Type Department Care Team Description 02/19/2012 Initial Consult Specialty Center Eusebio Mcmanus In testinal infection due to Clostridium difficile; 6500 Abdominal pain, unspecified site; Gastroenterology [address] Diarrhea; 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 I think you have a couple of things going on: IBS and C. Diff. - your recent increase in symptoms is due to C. Difficile. We are treating this with Flagyl x 2 weeks. Please use all of this as prescribed. - if your symptoms come back, let me know, we will check another c. diff toxin. 2. I think you also have underlying IBS: - we discussed how the gastro-colic reflux works. - remember to avoid fatty or greasy foods. Avoid fried foods. - drink lots of water. 3. Once we get rid of the c. diff infection, you can continue to use Imodium as needed. Bentyl is effective for cramping. 4. If your symptoms are well managed in the future, you don't need to have a colonoscopy until you are 52. 5. we can rule out celiac disease with a blood test. 6. Give me a call if your symptoms are getting worse again. documented in this encounter Progress Notes Eusebio Mcmanus MD - 02/19/2012 3:09 PM CDT Progress Notes signed by Eusebio Mcmanus MD at 02/20/12 1036 Author: Eusebio Mcmanus MD Service: (none) Author Type: Physician Filed: 02/20/12 1036 Note Time: 02/19/12 1509 Status: Signed Profiling Machine Setup Operator: Eusebio Mcmanus MD (Physician) NAME: IGGY DUARTE MR#: [id number] CSN: [id number] AUTHENTICATING CLINICIAN: Eusebio Mcmanus MD CONFIRM #: [id number] LOC: 3533 CLINIC PROGRESS NOTE DATE OF VISIT: 02/19/2012 : 1975 PRIMARY CARE: Sherie Baez. REASON FOR CONSULTATION: Is C. difficile colitis. HISTORY OF PRESENT ILLNESS: I am asked to see Ms. Iggy Duarte in consultation by Dr. Haim Petty who saw Ms Duarte in urgent care on evening, February 14. Iggy has a long history of irritable bowel with diarrhea predominance the who has been controlling her symptoms with a combination of Imodium and Bentyl. However, this week she noted an acute significant increase in symptoms and she developed significant abdominal cramping, hot flashes, subjective chills, weakness and increased diarrhea. She went into urgentcare on night and at that time she submitted some stool specimens and also had some blood testing. Her blood testing showed among other things an elevated white count to 17,000 with a left shift. Her liver functions and amylase were normal. Stool for culture and O and P was negative, however, stools submitted that evening for C. difficile came back showing a positive C. difficile toxin on February 15. The patient was contacted by Urgent Care and was advised to begin taking Flagyl and the Urgent GI consultation was made. The patient did start taking Flagyl with her 1st dose Sunday and since that time she has been on 500 mg 3 times per day. She notes significant improvement since she started her antibiotics on Sunday evening, but today the symptoms have returned sort of back to her baseline.Her baseline includes diarrhea usually whenever she eats and typically follows a meal by about 15 minutes. She does not see blood. Her abdominal cramping has significantly improved. She does not have fevers, her chills have resolved. Her weakness has largely resolved. She is not aware of how she would have contacted C. difficile although she does work at [employer] in the [employer] and occasionally is exposed to people with this infection. She also notes one ofher coworkers may have had C. difficile recently. The patient acknowledges that her diet is not real healthy. She does need frequent fast food or restaurant food. She notes that her postprandial diarrhea tends to be much more prominent if she eats a fatty or greasy meal. She has learned to try to avoid those things. She does not drink a lot of milk or dairy products and has only enough milk to barely moist in her cereal in the morning. She wonders about whether she might have gluten intolerance although she has never tried a gluten elimination dietnor does she know whether anyone in her family has had celiac disease. She does not drink 1-2 sodas per day. She drinks little or no coffee. PAST MEDICAL HISTORY: Reviewed, this includes: 1. Diarrhea predominant irritable bowel syndrome. a. History of flexible sigmoidoscopy in 2000 which was by report negative. 2. History of melanoma on the mid abdomen June,. 3. History of basal cell carcinoma on the left leg June,. 4. Chronic headaches. 5. Concussion February, after being thrown from a horse. 6. Hypertension. 7. Remote tonsillectomy. 8. Obesity. 9. Tobacco abuse. MEDICATIONS: As outpatient are reviewed. These medications include: 1. Elavil 25-50 mg every h.s. 2. Calcium carbonate. 3. Bentyl as needed for abdominal cramping. 4. Flagyl 500 mg t.i.d. started on February 15. 5. Multivitamin. 6. Oral contraceptive. 7. Maxzide. ADVERSE DRUG REACTIONS: None. SOCIAL HISTORY: The patient is , has no children, lives in [place], works at [employer] in [place].Likes to show courses as a hobby. She says this is very stressful. She smokes cigarettes socially, less than 1/2 pack per day. She drinks alcohol socially but not heavily. FAMILY HISTORY: Negative for gluten intolerance or history of C. difficile infection. The patient further denies anyfamily history of colitis or inflammatory bowel disease. REVIEW OF SYSTEMS: Negative except as described above. PHYSICAL EXAM: Height 5 feet 7 inches his, weight 189 pounds. Blood pressure 138/86, pulse of 93. GENERAL: This is a pleasant, healthy-appearing, young woman in no acute distress. She is well-nourished and appears to be well hydrated. Her extremities show no edema. LABS: From night demonstrate a white count of 17.4 and a positive C. difficile toxin. Abdominal x-ray on February 14 was unremarkable. IMPRESSION: 1. Acute C. difficile colitis. At this point, the patient is already improving on Flagyl. I have recommended that she continue Flagyl for the full 2 week course. Obviously she should avoid antibiotics in the future unless absolutely necessary. We reviewed how C. difficile infection can recur and I have advised the patient to contact me if she feels that her symptoms are returning once she discontinues her Flagyl. At that point we will recheck a C difficile toxin, and if it is again positive I would re-treat her probably with vancomycin next time. 2. Diarrhea predominant irritable bowel syndrome. We reviewed the basics of managing this. We reviewed the association with stress and an unhealthy diet. We reviewed the potential benefits of exercise and stress management. We reviewed the active gastrocolic reflux it often manifest with fatty or greasy meals. I have advised her to avoid high fat, greasy or fried food diet. We reviewed that it is appropriate to manage diarrhea and cramping with an anti diarrheal product such as Imodium and an antispasmodic such as Bentyl. She is already doing these things, although she has been holding these medicines since her C. difficile infection was diagnosed. Once her C. difficile has been treated it is safefor her to continue to use these medications. 3. Finally the patient asks about the possibility of celiac disease and we will check a tissue transglutaminase at this time for screening purposes. 4. The total length of this visit was 25 minutes with more than 50% of this time reviewing C. difficile infection, irritable bowel syndrome, and organizing a plan for management. CC: SHERIE BAEZ PA-C [address] [place] [address] DRS:EAN C: CONFIRM #: [id number] documented in this encounter Plan of Treatment Upcoming Encounters Date Type Specialty Care Team Description 05/05/2022 Appointment Chemo Therapy/Infusion Services 09/15/2022 Telemedicine Gastroenterology Eusebio Haines MD [address] [place], [place] [address] (Wo rk) Scheduled Referrals Name Type Priority Associated Diagnoses Order S chedule Gastroenterology Referral Routine Abdominal pain, Ordered: Consult-Adults unspecified site 02/19/2012 Diarrhea Colitis Irritable bowel syndrome documented as of this encounter Visit Diagnoses Diagnosis Intestinal infection due to Clostridium difficile Intestinal infection due to clostridium difficile Abdominal pain, unspecified site Diarrhea Colitis Other and unspecified noninfectious mónica roenteritis and colitis Irritable bowel syndrome documented in this encounter Care Teams Sap Technical Architect Relationship Specialty Start Date End Date Sherie Baez PA-C PCP - General 09/25/10 03/14/15 [address] [place] [address] documented as of this encounter
--- OUTSIDE RECORDS SUMMARY | 2022-03-20 16:17 | XMS_ITS | Encounter Summary ---
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
--- OUTSIDE RECORDS SUMMARY | 2022-03-20 16:17 | XMS_ITS | Encounter Summary ---
:1975 Author Organization [email or web address] 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 as of this encounter Nursing Notes Zully Bell - 09/11/2011 3:29 PM CDT MESSAGE TO PROVIDER Can you send this rx for #112 and taking continuously for insurance auditing purposes documented in this encounter Plan of Treatment Upcoming Encounters Date Type Specialty Care Team Description 05/05/2022 Appointment Chemo Therapy/Infusion Services 09/15/2022 Telemedicine Gastroenterology Eusebio Haines MD [address] [place], [place] [address] (Wo rk) documented as of this encounter Visit Diagnoses Not on filedocumented in this encounter Care Teams Client Manager Large Law Relationship Specialty Start Date End Date Munira Combs PA-C PCP - General 09/25/10 03/14/15 [address] [place] [address] documented as of this encounter
--- OUTSIDE RECORDS SUMMARY | 2022-03-20 16:18 | XMS_ITS | Encounter Summary ---
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 documented as of this encounter Last Filed Vital Signs Vital Sign Reading Time Taken Comments Blood Pressure 133/85 01/03/2010 3:17 PM CDT Pulse 92 01/03/2010 3:17 PM CDT Temperature - - Respiratory Rate - - Oxygen Saturation - - Inhaled Oxygen Concentration - - Weight - - Height - - Body Mass Index - - documented in this encounter Plan of Treatment Upcoming Encounters Date Type Specialty Care Team Description 05/05/2022 Appointment Chemo Therapy/Infusion Services 09/15/2022 Telemedicine Gastroenterology Eusebio Haines MD [address] [place], [place] [address] (Wo rk) documented as of this encounter Visit Diagnoses Not on filedocumented in this encounter Care Teams Gambreler Helper Relationship Specialty Start Date End Date Munira Combs PA-C PCP - General 09/25/10 03/14/15 [address] [place] [address] documented as of this encounter
--- OUTSIDE RECORDS SUMMARY | 2022-03-20 16:18 | XMS_ITS | Encounter Summary ---
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 documented as of this encounter Last Filed Vital Signs Vital Sign Reading Time Taken Comments Blood Pressure 130/78 03/13/2008 7:50 AM CDT Pulse 100 03/13/2008 7:50 AM CDT Temperature - - Respiratory Rate 16 03/13/2008 7:50 AM CDT Oxygen Saturation - - Inhaled Oxygen - - Concentration Weight 91.2 kg (200 lb 15.9 03/13/2008 7:50 AM C: 91.2k g Standing oz) CDT Height - - Body Mass Index 31.96 04/04/2007 8:09 AM CDT documented in this encounter Progress Notes Michelle Liao MD - 03/13/2008 12:01 AM CDT Progress Notes signed by Michelle Liao MD at 03/13/08 1530 Author: Michelle Liao MD Service: (none) Author Type: Physician Filed: 10/15/10 0655 Note Time: 03/13/08 0001 Status: Signed Manager Landscape: Michelle Liao MD (Physician) NAME: IGGY DUARTE MR#: [id number] ACCT: [id number] VISIT: [id number] DICTATING CLINICIAN: MICHELLE LIAO MD CONFIRM #: [id number] LOC: 223 CLINIC PROGRESS NOTE DATE OF VISIT: 03/13/2008 SUBJECTIVE: Consultation Dr. Schwartz because of a concussion and abnormal MRI. A 32-year-old woman who was thrown from a horse on 02/17. She does not recall the falling and landing although she woke up very soon, seeing the horse run away. She had pain in the back of her head as well as a cut on her chin. Later she had noticed a scalp laceration and bruising of the right arm. After 3 days, she began having positional frontal headache. When she bent forward or turned her head rapidly, there was a mild throbbing sensation which was very transient in each case. She had no other symptoms including slow thinking, difficulty sleeping or more sleeping, and no focal neurologic symptoms. These symptoms persisted and she saw Dr. Schwartz on 02/25. Exam was grossly normal. MR imaging of the brain, 02/27, showed a few nonspecific hyperintensities deep in the white matter. There was no sign of trauma including cortical contusion, subdural hematoma, edema. MR angiography was abnormal with several variations in the proximal middle cerebral flow caliber suggesting vasospasm. In the interim, her headaches have completely disappeared. 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 The horse seems to be be quite shy and sensitive and often bucks. In fact, she was thrown earlier this summer from the same horse with no injury. Complete system review is negative. PAST HISTORY: Two closed head injuries, at age 5 and age 22, the last one also from a horse. Chronic headache disorder that goes back 2 or 3 years, suppressed by amitriptyline 50 mg; relapse when that is stopped. Uses no OTC or prescription analgesic. FAMILY HISTORY: Very good health on mother's side. Does not know father's because of early divorce. 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 Sleeps well 8 hours. Quit tobacco 3 weeks ago after the injury, then before that it was quite minimal. One caffeine soda daily. A weekly beer at most. MEDS LIST: Reconciled EMR. No change. ASA was added by Dr. Schwartz after the angiography. OBJECTIVE: VITAL SIGNS: EMR documentation. GENERAL: A pleasant, short-statured, heavyset woman, quite bright and alert, with rapid speech. HEENT: Cranium is normal, including frontal, maxillary, TMJs, and orbits. NECK: Full cervical range with no carotid bruit. LUNGS: Clear lungs. HEART: Regular heartbeat. No murmur. ABDOMEN: Flat abdomen, nontender. PERIPHERAL CIRCULATION: Normal. NEUROLOGIC: Mentation: Normal attention, concentration, orientation, knowledge, memory, language. Cranials 2 through 12 normal: Flat disks. Large pupils with very good-looking retina. No vasospasm anywhere. Spontaneous venous pulsations. Arms: Full strength, tone, coordination, right-handed. Stance, balance, gait, tandem all normal. Reflexes active symmetric, plantars absent. Light touch sensitivity symmetric face and limbs, no neglect. I presented and discussed the MR images, pointing out the essential details mentioned above. I suspect the few faint hyperintensities are related to previous head injuries or some unrecorded high fever and mild encephalopathy long forgotten. No functional correlates. Likewise, the angiography appears to me more a variant than significant vasospasm and certainly not correlated to this injury or otherwise the transient symptoms. DIAGNOSIS: 310.2 Post concussion syndrome, mild, full recovery symptomatically. At risk for further concussion encephalopathy in the near future. ASSESSMENT: PLAN: I strongly suggested no riding, even with a helmet, for the next 6 weeks. I wrote out this opinion as well as the description of the incidental findings. Return visit p.r.n. CC: Dr. Schwartz JGD:[id number] C: 03/13/08 09:35 CONFIRM #: [id number] documented in this encounter Plan of Treatment Upcoming Encounters Date Type Specialty Care Team Description 05/05/2022 Appointment Chemo Therapy/Infusion Services 09/15/2022 Telemedicine Gastroenterology Eusebio Haines MD [address] [place] [address] (Wo rk) documented as of this encounter Visit Diagnoses Not on filedocumented in this encounter Care Teams Manager Community Relations Relationship Specialty Start Date End Date Munira Combs PA-C PCP - General 09/25/10 03/14/15 [address] [place] [address] documented as of this encounter
--- OUTSIDE RECORDS SUMMARY | 2022-03-20 16:18 | XMS_ITS | Encounter Summary ---
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 She states that her primary care provider noted a mole underneath her left breast and on her abdomen that she wanted to have checked out. Idania has also noted a mole on the bottom of her right foot in a red scaly spot on her left upper leg. There is no history of skin cancer in the family. She grew up with blond hair and green eyes. 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 She is and does [employer] horse back riding. Past Medical History: Irritable bowel Adverse Drug Reactions: None Medications: Reviewed. See Medication List in LastWord. OBJECTIVE: This is a well-developed well-nourished woman in no acute distress who is alert and oriented. She appears to be a Womack skin type III but she is very dawn. Skin examination was done of the scalp, face, ears, neck, chest, abdomen, breast, upper/lower arms, back, upper/lower legs and feet. She has a small flat brown nevus noted at the frontal portion of the scalp. She has several small flat brown nevi noted on the pinna of the right ear. She has a fried egg type of mole noted underneath the left breast. At the midportion of the upper abdomen she has a very dark brown to black macule. On the left upper outer thigh she has a 1 cm slightly reddened dry scaly sandpapery area noted. On the plantar surface of the right mid foot she has an 8-mm brown nevus that has two comet tails. She has a caf au lait noted on the right upper shoulder and inferior to that she appears to have a nevus spilus noted. She has a large tattoo noted at the mid back. ASSESSMENT: 1. Lesion of the abdomen 2. Lesion of the left upper outer thigh 3. Irregularly shaped nevus of the right foot. PLAN: I have suggested biopsy for the lesion on the abdomen due to its dark size and a biopsy of the lesion of the left upper outer thigh. Patient is in agreement with this plan. The areas were infiltrated with 1% Xylocaine with epinephrine and shave biopsies were accomplished. Bleeding was controlled with aluminum chloride it she is instructed on aftercare. Patient will be called with histopathology report [phone]. I have set her up for her consultation with Dr. Rufina Morris for evaluation of the irregularly shaped nevus of the right foot. I have strongly discouraged her from using the tanning both. Impression: 1. Lesion of the abdomen 2. Lesion of the left upper outer thigh 3. 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
--- OUTSIDE RECORDS SUMMARY | 2022-03-20 16:18 | XMS_ITS | Encounter Summary ---
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 Comment:- Pharmacy Seq #:-Send to [facility] Name:-[facility] Street or City:-[place] Clinician Name:-[facility] Name/Strength:-Amitriptyline HCL 25mg tabs. Sig: Dose/Route/Freq:-Take 1-2 tabs at bedtime. Quantity & Last Fill:-90 09/08/08 Created on [id number] 3:56pm by ANGIE ALVARENGA On [id number] 3:59pm ANGIE ALVARENGA wrote: ADDITIONAL PRESCRIPTION REFILL:2 Drug Name/Strength/Sig:-Necon 1-35-28 tabs.Take 1 tab daily. Quantity:-112 Last Refill 12/28/08 On [id number] 11:20am SMITH NORTH wrote: Renewed medication per medication refill protocol. ICAL SUPPORT ASSOCIATE documented in this encounter Plan of Treatment Upcoming Encounters Date Type Specialty Care Team Description 05/05/2022 Appointment Chemo Therapy/Infusion Services 09/15/2022 Telemedicine Gastroenterology Eusebio Haines MD [address] [place] [address] (Wo rk) documented as of this encounter Visit Diagnoses Not on filedocumented in this encounter Care Teams Vocational Training Instructor Relationship Specialty Start Date End Date Munira Combs PA-C PCP - General 09/25/10 03/14/15 [address] [place] [address] documented as of this encounter
--- OUTSIDE RECORDS SUMMARY | 2022-03-20 16:18 | XMS_ITS | Encounter Summary ---
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 Comment:- Pharmacy Seq #:-print to [facility] Name-Phone[facility]Fax:- [facility] Street or City:- [place] Clinician Name:-[facility] Name/Strength:-Amitriptyline HCL 25MG tab Sig: Dose/Route/Freq:- take 1 to 2 tabs every night at bedtime Quantity & Last Fill:-180 12/31/09 *ECODE~PNRF Created on 16Mar2010 8:40am by CATIE AVILEZ On 17Mar2010 11:31am SMITH NORTH wrote: Renewed medication per medication refill protocol. R BOILER documented in this encounter Plan of Treatment Upcoming Encounters Date Type Specialty Care Team Description 05/05/2022 Appointment Chemo Therapy/Infusion Services 09/15/2022 Telemedicine Gastroenterology Eusebio Haines MD [address] [place] [address] (Wo rk) documented as of this encounter Visit Diagnoses Not on filedocumented in this encounter Care Teams Hair Spinning Machine Operator Relationship Specialty Start Date End Date Munira Combs PA-C PCP - General 09/25/10 03/14/15 [address] [place] [address] documented as of this encounter
--- OUTSIDE RECORDS SUMMARY | 2022-03-20 16:18 | XMS_ITS | Encounter Summary ---
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
--- OUTSIDE RECORDS SUMMARY | 2022-03-20 16:18 | XMS_ITS | Encounter Summary ---
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 PAST MEDICAL HISTORY: Obesity. Had an abnormal melanocytic mole and a BCC removed this past year. She has stopped tanning. Had a concussion from falling off a horse. She has completely recovered. She has headaches which are well-controlled with amitriptyline. Irritable bowel syndrome well-controlled on dicyclomine. No history of DVT or PE. No history of abnormal Paps. She is . Tonsillectomy. MEDICATIONS: Reviewed and updated in the health profile in LastWord today. ADR/ALLERGIES: REVIEWED AND UPDATED IN THE HEALTH PROFILE IN LASTWORD TODAY. FAMILY HISTORY: Negative for heart disease, breast, colon cancer, and diabetes. 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 She drinks alcohol occasionally, Just started an exercise program and is considering WW. Still frustrated about her weight. REVIEW OF SYSTEMS: Complete review of systems negative. OBJECTIVE: VS: BP: 139/80. P: 112. Ht: 65.75 in. Wt: 210. CONSTITUTIONAL: Sitting comfortably, appears well. Eyes: Sclerae and conjunctivae clear. ENT: TMs nonerythematous. Nasal mucosa non-congested. Oropharynx clear. NECK: No LAD. LUNGS: Clear to auscultation. HEART: Regular rate and rhythm. BREASTS: No palpable masses. ABDOMEN: Soft, nontender. : External genitalia normal. [place] rugated vagina. Nulliparous cervix without lesions. No adnexal masses or tenderness. Uterus is small and mobile. EXTREMITIES: 2+ pulses upper and lower extremities without edema. SKIN: Very tanned. There are a couple of darker moles, one below the left breast and one on the left abdomen. ASSESSMENT: 1. Health maintenance exam. 2. Hypertension 3. Obesity PLAN: No pap this year due to low risk. Refilled medications including dicyclomine, amitriptyline, Necon. Start HCTZ 25 mg for HTN. Check creat, lytes, TSH. Med check with lytes in 2 weeks. Continue exercise. DENT RESPONSE COORDINATOR documented in this encounter Plan of Treatment Upcoming Encounters Date Type Specialty Care Team Description 05/05/2022 Appointment Chemo Therapy/Infusion Services 09/15/2022 Telemedicine Gastroenterology Eusebio Haines MD [address] [place] [address] (Wo rk) documented as of this encounter Visit Diagnoses Not on filedocumented in this encounter Care Teams Western [employer] Hat Blocker Relationship Specialty Start Date End Date Munira Combs PA-C PCP - General 09/25/10 03/14/15 [address] [place], [place] [id number] documented as of this encounter
--- OUTSIDE RECORDS SUMMARY | 2022-03-20 16:18 | XMS_ITS | Encounter Summary ---
:1975 Author Organization [employer] Address [address] [address] Care Team Providers Name Role Phone Munira Combs PA-C Primary Care Provider Encounter Details Date Type Department Care Team Description 05/25/2010 Office Visit Justin Younger PA-C [facility] [address] [facility], [facility] [place] [address] [place] [address] [phone] (Wo rk) Social History Tobacco Use Types Packs/Day Years Used Date Smoking Tobacco: Never Assessed Sex Assigned at Date Recorded Female 05/09/2021 7:19 PM CURB SETTER documented as of this encounter Last Filed Vital Signs Vital Sign Reading Time Taken Comments Blood Pressure 138/70 05/25/2010 1:16 PM CURB SETTER Pulse 74 05/25/2010 1:16 PM CURB SETTER Temperature 37 ??C (98.6 ??F) 05/25/2010 1:16 PM CURB SETTER C: 37.0 C Respiratory Rate - - Oxygen Saturation - - Inhaled Oxygen Concentration - - Weight 91.2 kg (200 lb 15.9 oz) 05/25/2010 1:16 PM CURB SETTER C: 91.2kg Height - - Body Mass Index 32.94 05/25/2009 9:00 AM CURB SETTER documented in this encounter Progress Notes Justin Dunaway PA-C - 05/25/2010 12:01 AM CST Clinic Visit SUBJECTIVE: History of Present Illness: This 35-year-old presents today with waxing and waning left flank pain throughout the morning this morning. At its worst, she rates it at 9/10, the pain makes her feel nauseated and she has hot flashes due to the pain. The first time she felt it was really in the low back, but since that first episode it has been solidly in the left flank with no radiation towards the groin. No abdominal or suprapubic pain. When it was really painful for her, and no position was comfortable. It felt tender to the touch. Her appetite has been normal. No vomiting or heartburn. No epigastric abdominal pain. No frequency of urination, urgency to urinate, or burning with urination. No blood in the urine. LMP: She is on continuous OCPs, and last had a period of couple of months ago. She has been spotting over the last couple of weeks which is not normal for her on continuous OCPs. She describes her pain as crampy in nature. No stool changes, such as diarrhea, constipation, or rectal bleeding. No fevers. No injury that she can recall. She has been doing well no activities where she might have injured his abdominal muscle. No recent physical exertions where she is concerned she might have gotten dehydrated. She took acetaminophen at about 11:30 this morning, and pain gradually dissipated over the next hour and a half. She is feeling perfectly healthy at this point. Past Medical History: Irritable bowel syndrome. Headaches. No history of kidney infections, kidney stones, or recurrent bladder infections. No history of ovarian cysts or other gynecologic abnormalities. She has had no pregnancies. No history of sexually transmitted infections. Adverse Drug Reactions: No known drug allergies. Medications: Reviewed and updated on PHP in LastWord. See Medication List in LastWord. Family History: Mom and maternal grandmother have had hysterectomies for gynecologic issues, benign in nature. Social History: Smoking: Currently smokes. Marital status: , safe relationship. 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 Review of Systems: All systems were reviewed and found to be negative except as noted above. OBJECTIVE: Vital Signs: Reviewed in flowsheet charting of LastWord. Alert and 1oriented, appears in no distress or discomfort. Does not appear ill. Eyes: 2 Full EOM, PERRLA, without lesions or injection. Throat: Moist mucous 3membranes without lesions, erythema, or exudate. Neck: Supple, without 4masses, lymphadenopathy or tenderness. Respiratory: Normal respiratory 5effort. Lungs are clear with good breath sounds. Heart: RR without 6murmurs, rubs, or gallops. Back: No CVA tenderness. No visible 7deformities. No overlying skin changes seen. Abdomen: The abdomen was flat, soft and nontender without guarding rebound or masses. Labs and Diagnostics CBC: WBC 10.9, Hgb 14.3, Plt 336, ANC 6.3 UA: Large blood, Trace leukocyte esterase, 3-4 WBC/hpf, 10-24 RBC/hpf. Urine test: Negative. KUB abdomen: Normal stool and gas pattern without obstruction or ileus, normal KUB by my reading today. Radiology confirms. ASSESSMENT: 1. Left flank pain, resolved. 2. Hematuria, microscopic. PLAN: Discussed with her that she certainly could have had a kidney stone that perhaps has passed, and that is why her pain has completely resolved. There is some evidence of possible bladder infection, and the blood in the urine could be do to infection. Given that, I will put her on treatment for UTI with Bactrim DS, 1 tablet twice daily x3 days. I asked her to let me know over the next couple of days if she should have recurrence of this flank pain. If that should occur, I think I would order a CT scan with stone protocol. She will be notified with urine culture results as soon as available. She will push fluids. She is agreeable with the above mentioned plan. Discharged ambulatory and in stable condition. *SH~DNS~SOAP1 SETTER documented in this encounter Plan of Treatment Upcoming Encounters Date Type Specialty Care Team Description 05/05/2022 Appointment Chemo Therapy/Infusion Services 09/15/2022 Telemedicine Gastroenterology Eusebio Haines MD [address] [place] [address] (Wo rk) documented as of this encounter Procedures Procedure Name Priority Date/Time Associated Diagnosis Comme nts XR ABD FLAT Routine 05/25/2010 2:04 PM Results f or this (STANDARD) CURB SETTER procedure are i n the results section. documented in this encounter Results XR Abd Flat (Standard) (05/25/2010 2:04 PM CURB SETTER) Anatomical Region Laterality Modality Abdomen Other Specimen (Source) Anatomical Location Collection Method / Collectio n Time Received Time / Laterality Volume Impressions 05/25/2010 2:04 PM CURB SETTER : ??Negative supine abdomen. Dictating YIMI STARR MD Narrative 05/25/2010 2:04 PM CURB SETTER COMPARISON: ??None. FINDINGS: ??One view was obtained. ??Abd ominal gas pattern is unremarkable. ??Bony structures appear n ormal. ??There is no evidence of intestinal obstruction or ileus. ??No gross free intraperitoneal air is seen. No abnormal calcific densit ies. Procedure Note Yimi Sow MD - 12/09/2015Formatti ng of this note might be different from the original. COMPARISON: None. FINDINGS: One view was obtained. Abdomin al gas pattern is unremarkable. Bony structures appear nor mal. There is no evidence of intestinal obstruction or ileus. No g ross free intraperitoneal air is seen. No abnormal calcific densit ies. IMPRESSION : Negative supine abdomen. Dictating YIMI STARR MD Justin Dunaway PA-C RAD GD documented in this encounter Visit Diagnoses Not on filedocumented in this encounter Care Teams Tester Vibrator Equipment Relationship Specialty Start Date End Date Munira Combs PA-C PCP - General 09/25/10 03/14/15 [address] [place] [address] documented as of this encounter
--- OUTSIDE RECORDS SUMMARY | 2022-03-20 16:18 | XMS_ITS | Encounter Summary ---
:1975 [facility] Address [address], [place] [address] Care Team Providers Name Role Phone Munira Combs PA-C Primary Care Provider Encounter Details Date Type Department Care Team Description 07/21/2008 Coal Grader Only [facility] [address], Dermatology RUDY, [place] [address] [facility] [address] [place] [address] [phone] (Wo rk) Social History Tobacco Use Types Packs/Day Years Used Date Smoking Tobacco: Never Assessed Sex Assigned at Date Recorded Female 05/09/2021 7:19 PM CLIENT CARE SPECIALIST documented as of this encounter Progress Notes Katerina Britton, [place] GRANT - 07/21/2008 12:01 AM CST Progress Notes signed by ALFONSO Thompson at 07/21/08 1039 Author: ALFONSO Thompson Service: (none) Author Type: Nurse Practitioner Filed: 10/15/10 1007 Note Time: 07/21/08 0001 Status: Signed Bean Dumper: ALFONSO Thompson (Nurse Practitioner) Patient notified that lesion on abd. shows severe dysplastic mole and re-excision with 5 mm margins is recommended. 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 I have arranged a surgical consultation with on 07/22. She is to STOP tanning. She is to return to [place] for full body exam in 8 weeks. NT CARE SPECIALIST documented in this encounter Plan of Treatment Upcoming Encounters Date Type Specialty Care Team Description 05/05/2022 Appointment Chemo Therapy/Infusion Services 09/15/2022 Telemedicine Gastroenterology Eusebio Haines MD [address], [place] [address] (Wo rk) documented as of this encounter Visit Diagnoses Not on filedocumented in this encounter Care Teams Ruling Machine Feeder Relationship Specialty Start Date End Date Munira Combs PA-C PCP - General 09/25/10 03/14/15 [address] [place], [place] [id number] documented as of this encounter
--- OUTSIDE RECORDS SUMMARY | 2022-03-20 16:18 | XMS_ITS | Encounter Summary ---
:1975 Author Organization [employer] Address [address], [place] [address] Care Team Providers Name Role Phone Munira Combs PA-C Primary Care Provider Encounter Details Date Type Department Care Team Description 05/07/2008 Office Visit [facility] Munira Falcon PA-C [address] [address] [place] [address] [phone] (Wo rk) Social History Tobacco Use Types Packs/Day Years Used Date Smoking Tobacco: Never Assessed Sex Assigned at Date Recorded Female 05/09/2021 7:19 PM CHARGE ENTRY SPECIALIST documented as of this encounter Last Filed Vital Signs Vital Sign Reading Time Taken Comments Blood Pressure 138/74 05/07/2008 2:37 PM CHARGE ENTRY SPECIALIST Pulse 92 05/07/2008 2:37 PM CHARGE ENTRY SPECIALIST Temperature - - Respiratory Rate - - Oxygen Saturation - - Inhaled Oxygen Concentration - - Weight 91.2 kg (200 lb 15.9 oz) 05/07/2008 2:37 PM C: 9 1.2kg CHARGE ENTRY SPECIALIST Height 167 cm (5' 5.75) 05/07/2008 2:37 PM C: 167.0cm CHARGE ENTRY SPECIALIST Body Mass Index 32.69 05/07/2008 2:37 PM CHARGE ENTRY SPECIALIST documented in this encounter Progress Notes Munira Combs PA-C - 05/07/2008 12:01 AM CST H&P signed by Munira Combs PA-C at 05/12/08 1131 Author: Munira Combs PA-C Service: (none) Author Type: Physician Manager Business Continuity Filed: 10/15/10 0821 Note Time: 05/07/08 0001 Status: Signed Home Care Provider: Munira Combs PA-C (Physician Manager Business Continuity) NAME: IGGY DUARTE MR#: [id number] ACCT: [id number] VISIT: [id number] DICTATING CLINICIAN: SHAKA HELM CONFIRM #: [id number] LOC: 502 CLINIC PHYSICAL DATE OF VISIT: 05/07/2008 SUBJECTIVE: Iggy is a 33-year-old female who comes to the clinic today for a physical. PAST MEDICAL HISTORY: Recently had a concussion from falling off a horse. She has completely recovered. She has headaches which are well-controlled with amitriptyline. Irritable bowel syndrome well-controlled on dicyclomine. No history of DVT or PE. She has quit smoking. No history of abnormal Paps. She is . Tonsillectomy. MEDICATIONS: Reviewed and updated in the health profile in LastWord today. ADR/ALLERGIES: REVIEWED AND UPDATED IN THE HEALTH PROFILE IN LASTWORD TODAY. FAMILY HISTORY: Negative for heart disease, breast, colon cancer, and diabetes. 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 She has now smoke-free. She drinks alcohol occasionally, exercises regularly, tanning frequently. REVIEW OF SYSTEMS: Complete review of systems negative. OBJECTIVE: VS: BP: 138/74. P: 92. Ht: 65.75 in. Wt: 201. CONSTITUTIONAL: Sitting comfortably, appears well. Eyes: Sclerae and conjunctivae clear. ENT: TMs nonerythematous. Nasal mucosa non-congested. Oropharynx clear. NECK: No LAD. LUNGS: Clear to auscultation. HEART: Regular rate and rhythm. BREASTS: No palpable masses. ABDOMEN: Soft, nontender. : External genitalia normal. [place] rugated vagina. Nulliparous cervix without lesions. No adnexal masses or tenderness. Uterus is small and mobile. EXTREMITIES: 2+ pulses upper and lower extremities without edema. SKIN: Very tanned. There are a couple of darker moles, one below the left breast and one on the left abdomen. ASSESSMENT: 1. Health maintenance exam. 2. Elevated blood pressure. May be a result of OCP. 3. History of sun damage and abnormal-appearing moles. PLAN: Suggested trial of going off the OCP to see if there is a change with her blood pressure. I would like her to discontinue the pill and come back for blood pressure check within the next month. If it is found to be due to the OCP, would suggest considering other contraceptive options. She is not interested in getting for several years. She might be a good candidate for an IUD. refilled medications including dicyclomine, amitriptyline. For now I did refill Necon until we get this sorted out. Recommended dermatology consultation regarding moles, and urged her to discontinue tanning. Discussed the risk of melanoma and premature aging. Pap smear obtained today. AMS:[id number] C: 05/07/08 19:05 CONFIRM #: [id number] GE ENTRY SPECIALIST documented in this encounter Plan of Treatment Upcoming Encounters Date Type Specialty Care Team Description 05/05/2022 Appointment Chemo Therapy/Infusion Services 09/15/2022 Telemedicine Gastroenterology Eusebio Haines MD [address] [place] [address] (Wo rk) documented as of this encounter Visit Diagnoses Not on filedocumented in this encounter Care Teams Fertilizer Mixer Relationship Specialty Start Date End Date Munira Combs PA-C PCP - General 09/25/10 03/14/15 [address] [place] [address] documented as of this encounter
--- OUTSIDE RECORDS SUMMARY | 2022-03-20 16:18 | XMS_ITS | Encounter Summary ---
:1975 Author Organization [employer] Address [address], [place] [address] Care Team Providers Name Role Phone Munira Combs PA-C Primary Care Provider Reason for Visit Reason Comments Other Encounter Details Date Type Department Care Team Description 04/28/[address] [facility], Message Other [address] [place], [place] [address] Social History Tobacco Use Types Packs/Day Years Used Date Smoking Tobacco: Never Assessed Sex Assigned at Date Recorded Female 05/09/2021 7:19 PM MAKEUP ARTIST documented as of this encounter Progress Notes Center, Message - 04/28/2009 10:53 AM CST Phone Note filed by [place] at 10/14/10 3495 Author: [place] Service: (none) Author Type: (none) Filed: 10/14/10 0563 Note Time: 04/28/09 1053 Status: Signed Editor Managing Director: [place] (Resource) Prescription Refill Please provide enough refills to last until patient's next visit. Comment:- Pharmacy Seq #:-print to [facility] Street or City:-[place] Clinician Name:-Chrissy Strong Drug Name/Strength:-Amitriptyline HCL 25MG tab Sig: Dose/Route/Freq:-take 1 to 2 tabs at bedtime Quantity & Last Fill:-60 02/01/09 Created on 28Apr2009 10:53am by CATIE AVILEZ On 28Apr2009 12:30pm SMITH NORTH wrote: REFILL APPOINTMENT NEEDED Please call patient and schedule appointment within 30 days. Medication has been renewed and faxed to pharmacy for 30 day supply only, per protocol. Comment:-well exam or all med ck appt due. On 28Apr2009 12:53pm SUMIT MERCADO wrote: Spoke to pt and advised on medication, pt will call back to schedule appt. UP ARTIST documented in this encounter Plan of Treatment Upcoming Encounters Date Type Specialty Care Team Description 05/05/2022 Appointment Chemo Therapy/Infusion Services 09/15/2022 Telemedicine Gastroenterology Eusebio Haines MD [address] [place] [address] (Wo rk) documented as of this encounter Visit Diagnoses Not on filedocumented in this encounter Care Teams Keno Dealer Relationship Specialty Start Date End Date Munira Combs PA-C PCP - General 09/25/10 03/14/15 [address] [place], [place] [phone] documented as of this encounter
--- OUTSIDE RECORDS SUMMARY | 2022-03-20 16:18 | XMS_ITS | Encounter Summary ---
:1975 Author Organization [employer] Address [address] [address] Care Team Providers Name Role Phone Munira Combs PA-C Primary Care Provider Encounter Details Date Type Department Care Team Description 06/09/2009 PN Conversion Only NADIA CONVERSION Munira Combs PA-C [address] [place] [address] [place] [address] (Wo rk) Social History Tobacco Use Types Packs/Day Years Used Date Smoking Tobacco: Never Assessed Sex Assigned at Date Recorded Female 05/09/2021 7:19 PM CHIEF INVESTMENT OFFICER documented as of this encounter Plan of Treatment Upcoming Encounters Date Type Specialty Care Team Description 05/05/2022 Appointment Chemo Therapy/Infusion Services 09/15/2022 Telemedicine Gastroenterology Eusebio Haines MD [address] [place] [address] (Wo rk) documented as of this encounter Procedures Procedure Name Priority Date/Time Associated Diagnosis Comme nts CREATININE / GFR Routine 06/09/2009 11:31 AM Resu lts for this CHIEF INVESTMENT OFFICER procedure are i n the results section. ELECTROLYTE PANEL Routine 06/09/2009 11:31 AM Res ults for this CHIEF INVESTMENT OFFICER procedure are i n the results section. documented in this encounter Results (ABNORMAL) Electrolyte Panel (06/09/2009 11:31 AM CHIEF INVESTMENT OFFICER) P athologist Signature Sodium 135 (L) 137 - 147 HP CONVERSION mEq/L Potassium 3.9 3.5 - 5.2 HP CONVERSION mEq/L Chloride 102 98 - 110 HP CONVERSION mEq/L Bicarbonate 30 23 - 33 HP CONVERSION mmol/L Specimen (Source) Anatomical Collection Method Collection Time Re ceived Time Location / / Volume Laterality 06/09/2009 11:31 AM CHIEF INVESTMENT OFFICER Munira Combs PA-C LAB_1 Performing Organization Address City/[facility] Phon e Number HP CONVERSION Creatinine / GFR (06/09/2009 11:31 AM CHIEF INVESTMENT OFFICER) athologist Signature Creatinine 0.8 0.4 - 1.3 HP CONVERSION Serum mg/dL Est GFR >60 >60 HP CONVERSION Am Comment: -[place] Islander and Dwi-Sbtytqm-Plzwjmm n reference range units: mL/min/1.73m2 Normal>60, moderate decrease 30 - 59, se nay decrease 15 - 29, renal failure <15 mL/min/1.73 m2 NOTE: Choose the eGFR result above appro priate for the race of the patient. Est GFR Non-Afr Am >60 >60 HP CONVERSI ON Specimen (Source) Anatomical Collection Method Collection Time Re ceived Time Location / / Volume Laterality 06/09/2009 11:31 AM CHIEF INVESTMENT OFFICER Munira Combs PA-C LAB_1 Performing Organization Address City/[facility] Phon e Number HP CONVERSION documented in this encounter Visit Diagnoses Not on filedocumented in this encounter Care Teams Social Media Marketer Relationship Specialty Start Date End Date Munira Combs PA-C PCP - General 09/25/10 03/14/15 [address] [place] [address] documented as of this encounter
--- OUTSIDE RECORDS SUMMARY | 2022-03-20 16:18 | XMS_ITS | Encounter Summary ---
:1975 Author Organization [employer] Address [address] [address] Care Team Providers Name Role Phone Munira Combs PA-C Primary Care Provider Encounter Details Date Type Department Care Team Description 06/19/2008 [facility] [address] [place] [address] [place] [address] [phone] (Wo rk) Social History Tobacco Use Types Packs/Day Years Used Date Smoking Tobacco: Never Assessed Sex Assigned at Date Recorded Female 05/09/2021 7:19 PM INFECTION PREVENTION PRACTITIONER documented as of this encounter Last Filed Vital Signs Vital Sign Reading Time Taken Comments Blood Pressure 116/76 06/19/2008 1:03 PM INFECTION PREVENTION PRACTITIONER Pulse 96 06/19/2008 1:03 PM INFECTION PREVENTION PRACTITIONER Temperature 36.7 ??C (98.1 ??F) 06/19/2008 1:03 PM ORAL C: 3 6.7 C INFECTION PREVENTION PRACTITIONER Respiratory Rate - - Oxygen Saturation - - Inhaled Oxygen Concentration - - Weight - - Height - - Body Mass Index - - documented in this encounter Progress Notes Ellie Manrique MD - 06/19/2008 12:01 AM CST Progress Notes signed by Ellie Manrique MD at 06/19/08 8342 Author: Ellie Manrique MD Service: (none) Author Type: Physician Filed: 10/15/10 0923 Note Time: 06/19/08 0001 Status: Signed Mangle Catcher: Ellie Manrique MD (Physician) NAME: IGGY DUARTE MR#: [id number] ACCT: [id number] VISIT: [id number] DICTATING CLINICIAN: ELLIE MANRIQUE MD CONFIRM #: [id number] LOC: 1702 CLINIC PROGRESS NOTE DATE OF VISIT: 06/19/2008 SUBJECTIVE: 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 No chills or fever. She quit smoking in January after a concussion when she was thrown from her horse. OBJECTIVE: Alert and oriented, no acute distress. Conjunctivae and pupils, TMs and canals, mouth and oropharynx, neck and thyroid normal. No cervical nodes. LUNGS: Clear. No respiratory distress. HEART: Regular rhythm. No murmur, no gallop. ASSESSMENT: Sinusitis. PLAN: TREATMENT: Keflex 500 mg t.i.d. for 10 days, and she will use her NETI pot. DLV:[id number] C: 06/19/08 14:52 CONFIRM #: [id number] CTION PREVENTION PRACTITIONER documented in this encounter Plan of Treatment Upcoming Encounters Date Type Specialty Care Team Description 05/05/2022 Appointment Chemo Therapy/Infusion Services 09/15/2022 Telemedicine Gastroenterology Ellie Haines MD [address] [place] [address] (Wo rk) documented as of this encounter Visit Diagnoses Not on filedocumented in this encounter Care Teams Prefabricated Houses Trimmer Relationship Specialty Start Date End Date Munira Combs PA-C PCP - General 09/25/10 03/14/15 [address] [place] [address] documented as of this encounter
--- OUTSIDE RECORDS SUMMARY | 2022-03-20 16:18 | XMS_ITS | Encounter Summary ---
:1975 Author Organization [employer] Address [address], [place] [address] Care Team Providers Name Role Phone Munira Combs PA-C Primary Care Provider Reason for Visit Reason Comments Other Encounter Details Date Type Department Care Team Description 03/04/2008 Telephone [facility] [address] Neurology Cristian Fisher Other [address] [place] [address] Social History Tobacco Use Types Packs/Day Years Used Date Smoking Tobacco: Never Assessed Sex Assigned at Date Recorded Female 05/09/2021 7:19 PM CONCRETE HOPPER OPERATOR documented as of this encounter Progress Notes Cristian Fisher - 03/04/2008 9:29 PM CDT Phone Note filed by Cristian Fisher MD at 10/13/1045 Author: Cristian Fisher MD Service: (none) Author Type: (none) Filed: 10/13/10 0545 Note Time: 03/04/082128 Status: Signed Lap Maker: Cristian Fisher MD (Physician) Contacted by Dr. Schwartz on 03/03/08 re. Emerson. Per , 32 y/o w/ h/o fall from a horse 1 week ago; hot Rt. temporal area & had transient LOC after the fall. 1 week later developed ROBB. ROBB likley post concussive.ROBB Brain MRI/MRA of head done. MRA of Head reported by Dr. Alba as showing intracranial narrowing/stenoses which was concerning for Dr. Schwartz. Labs including ESR & JOHAN normal. RECOMMENDED Neurology Consult appt for further evaluation. Has appt. w/ Dr. Lucas on 03/13/08. Created on 04Mar2008 9:29pm by CRISTIAN FISHER RETE HOPPER OPERATOR documented in this encounter Plan of Treatment Upcoming Encounters Date Type Specialty Care Team Description 05/05/2022 Appointment Chemo Therapy/Infusion Services 09/15/2022 Telemedicine Gastroenterology Eusebio Haines MD [address] [place] [address] (Wo rk) documented as of this encounter Visit Diagnoses Not on filedocumented in this encounter Care Teams Plaster And Stucco Worker Relationship Specialty Start Date End Date Munira Combs PA-C PCP - General 09/25/10 03/14/15 [address] [place], [place] [id number] documented as of this encounter
--- OUTSIDE RECORDS SUMMARY | 2022-03-20 16:18 | XMS_ITS | Encounter Summary ---
:1975 Author Organization [employer] Address [address], [place] [address] Care Team Providers Name Role Phone Munira Combs PA-C Primary Care Provider Encounter Details Date Type Department Care Team Description 05/25/2010 PN Conversion Only [place] Justin Lutz PA-C [address] [place] [address] [place] [address] (Wo rk) Social History Tobacco Use Types Packs/Day Years Used Date Smoking Tobacco: Never Assessed Sex Assigned at Date Recorded Female 05/09/2021 7:19 PM UTILITY HAND documented as of this encounter Plan of Treatment Upcoming Encounters Date Type Specialty Care Team Description 05/05/2022 Appointment Chemo Therapy/Infusion Services 09/15/2022 Telemedicine Gastroenterology Eusebio Haines MD [address] [place], [place] [phone] (Wo rk) documented as of this encounter Procedures Procedure Name Priority Date/Time Associated Comments Diagnosis TEST Routine 05/25/2010 1:52 PM Results for this (URINE) UTILITY HAND procedure are i n the results section. URINE MICROSCOPIC Routine 05/25/2010 1:49 PM Resu lts for this UTILITY HAND procedure are i n the results section. URINALYSIS Routine 05/25/2010 1:49 PM Results f or this ROUTINE(MICRO IF POS) UTILITY HAND proced ure are in the results section. COMPLETE BLOOD Routine 05/25/2010 1:36 PM Results for this COUNT-W/DIFF UTILITY HAND procedure are i n the results section. DIFFERENTIAL Routine 05/25/2010 1:36 PM Results f or this UTILITY HAND procedure are i n the results section. URINE CULTURE Routine 05/25/2010 1:35 PM Results for this UTILITY HAND procedure are i n the results section. documented in this encounter Results Test (Urine) (05/25/2010 1:52 PM UTILITY HAND) [facility] Method Time Signature Urine Negative No normal HP CONVERSION Test range Specimen (Source) Anatomical Collection Method Collection Time Re ceived Time Location / / Volume Laterality 05/25/2010 1:52 PM UTILITY HAND Justin Dunaway PA-C LAB_1 Performing Organization Address City/[facility]/ZIP Code Phon e Number HP CONVERSION (ABNORMAL) URINE MICROSCOPIC (05/25/2010 1:49 PM UTILITY HAND) [facility] Method Time Signature White Blood 3-4 0 - 4 HP CONVERSION Cells Urine /HPF Red Blood Cells 10-24 (A) 0 - 2 HP CONVERSION Urine /HPF Bacteria Urine Few (A) /HPF HP CONVERSION Epithelial Few /HPF HP CONVERSION Cells Specimen (Source) Anatomical Collection Method Collection Time Re ceived Time Location / / Volume Laterality 05/25/2010 1:49 PM UTILITY HAND Justin Dunaway PA-C LAB_1 Performing Organization Address City/[facility]/ZIP Code Phon e Number HP CONVERSION (ABNORMAL) URINALYSIS ROUTINE(MICRO IF POS) (05/25/2010 1:49 PM UTILITY HAND) [facility] Method Time Signature Urine Type Cln catch No normal HP CONVERSION range Turbidity Clear Clear HP CONVERSION U BILI Negative Negative HP CONVERSION Blood Urine Large (A) Negative HP CONVERSION Glucose, Negative Neg-30 mg/dL HP CONVERSION Qualitative U Ketones Negative Negative HP CONVERSION Leukocyte Trace (A) Negative HP CONVERSION Esterase Urine Nitrite Urine Negative Negative HP CONVERSION pH Urine 6.5 5.0 - 8.0 HP CONVERSION Protein Urine Negative Neg - Trace HP CONVERSION mg/dL U Specific 1.015 1.005 - HP CONVERSION [place] 1.030 Urobilinogen Negative Negative HP CONVERSION Urine Eu/dL Specimen (Source) Anatomical Collection Method Collection Time Re ceived Time Location / / Volume Laterality 05/25/2010 1:49 PM UTILITY HAND Justin King Gume GAMBLE LAB_1 Performing Organization Address [facility] Phon e Number HP CONVERSION Differential (05/25/2010 1:36 PM UTILITY HAND) P athologist Signature Absolute 6.3 2.0 - 6.8 HP CONVERSION Neutrophils k/cmm Absolute 4.0 1.0 - 4.0 HP CONVERSION Lymphocytes k/cmm Absolute 0.4 0.2 - 1.0 HP CONVERSION Monocytes k/cmm Absolute 0.2 0.0 - 0.5 HP CONVERSION Eosinophils k/cmm Absolute 0.1 0.0 - 0.2 HP CONVERSION Basophils k/cmm Specimen (Source) Anatomical Collection Method Collection Time Re ceived Time Location / / Volume Laterality 05/25/2010 1:36 PM UTILITY HAND Justin King Gume G[facility]BLE LAB_1 Performing Organization Address [facility] Phon e Number HP CONVERSION (ABNORMAL) Hemogram/Plts/Diff (05/25/2010 1:36 PM UTILITY HAND) Patholo gist Method Time Signature White Blood Cell 10.9 3.8 - HP CONVERSION Count 11.0 k/cmm Red Blood Cell 4.62 3.70 - HP CONVERSION Count 5.20 m/cmm Hemoglobin 14.3 11.8 - HP CONVERSION 15.5 g/dL Hematocrit 41.1 35.0 - HP CONVERSION 46.0 % Mean Corpuscular 89.0 80.0 - HP CONVERSION Volume 100.0 fL RDW 10.7 (L) 11.0 - HP CONVERSION 15.0 % Platelet Count 336 140 - 450 HP CONVERSION k/cmm Specimen (Source) Anatomical Collection Method Collection Time Re ceived Time Location / / Volume Laterality 05/25/2010 1:36 PM UTILITY HAND Justin King Gume [facility] LAB_1 Performing Organization Address [facility] Phon e Number HP CONVERSION Urine Culture (05/25/2010 1:35 PM UTILITY HAND) Analysis Performed At Patho logist Time Signature Urine Culture SEE TEXT HP CONVERSION Comment: CUR Culture Urine ? ORDERED BY: JUSTIN DUNAWAY SOURCE: Urine Clean Catch ?COLLECTED: ??05/25/10 13:35 ? PLATED: ? 05/25/10 13:35 Culture Urine ?FINAL ? 05/26/10 11:05 Mixed gram positive organisms. ??<10,00 0 cfu/mL Specimen (Source) Anatomical Collection Method Collection Time Re ceived Time Location / / Volume Laterality 05/25/2010 1:35 PM UTILITY HAND Justin Dunaway PA-C LAB_1 Performing Organization Address City/State/ZIP Code Phon e Number HP CONVERSION documented in this encounter Visit Diagnoses Not on filedocumented in this encounter Care Teams Antique Clocks Repairer Relationship Specialty Start Date End Date Munira Combs PA-C PCP - General 09/25/10 03/14/15 [address] [place] [address] documented as of this encounter
--- OUTSIDE RECORDS SUMMARY | 2022-03-20 16:18 | XMS_ITS | Encounter Summary ---
:1975 Author Organization [employer] Address [address] [address] Care Team Providers Name Role Phone Munira Combs PA-C Primary Care Provider Reason for Visit Reason Comments Other Encounter Details Date Type Department Care Team Description 05/03/2009 Telephone [facility] Enmanuel Contreras, SARA Other [address] [place], [place] [phone] Social History Tobacco Use Types Packs/Day Years Used Date Smoking Tobacco: Never Assessed Sex Assigned at Date Recorded Female 05/09/2021 7:19 PM CDL SERVICE TECHNICIAN documented as of this encounter Progress Notes Ifrah Khanna - 05/03/2009 3:17 PM CST Phone Note filed by Ifrah Khanna at 10/14/10 3670 Author: Ifrah Khanna Service: (none) Author Type: (none) Filed: 10/14/101649 Note Time: 05/03/09 5667 Status: Signed Salvage Mechanic: Tam Conversion (Physician) PRESCRIPTION REFILL Prescription Refill Please provide enough refills to last until patient's next visit. Comment:-NOT ON PNRF LIST/NEEDS PRINTED SIGNED RX BROUGHT TO PHARMACY Pharmacy Seq #:- Pharmacy Name:[facility] Pharmacy Street or City:- Clinician Name:KELBY Drug Name/Strength:-CHERATUSSIN AC SYRUP Sig: Dose/Route/Freq:-TAKE 1 TO 2 TEASPOONFUL BY MOUTH EVERY 4 HOURS NEEDED Quantity & Last Fill:-120 04/26/2009 *ECODE~PNRF Created on 03May2009 3:17pm by IFRAH KHANNA On 03May2009 3:43pm APARNA CHA wrote: Ok for refill. printed and signed. Acknowledged by APARNA CHA on 3:43pm On 03May2009 4:38pm ENMANUEL CALDERA wrote: Taken to the pharm. Acknowledged by ENMANUEL CALDERA on 4:38pm SERVICE TECHNICIAN documented in this encounter Plan of Treatment Upcoming Encounters Date Type Specialty Care Team Description 05/05/2022 Appointment Chemo Therapy/Infusion Services 09/15/2022 Telemedicine Gastroenterology Eusebio Haines MD [address] [place] [address] (Wo rk) documented as of this encounter Visit Diagnoses Not on filedocumented in this encounter Care Teams Painter And Body Mechanic Apprentice Relationship Specialty Start Date End Date Munira Combs PA-C PCP - General 09/25/10 03/14/15 [address] [place], [place] [phone] documented as of this encounter
--- OUTSIDE RECORDS SUMMARY | 2022-03-20 16:18 | XMS_ITS | Encounter Summary ---
:1975 Author Organization [employer] Address [address] [address] Care Team Providers Name Role Phone Munira Combs PA-C Primary Care Provider Encounter Details Date Type Department Care Team Description 05/25/2009 PN Conversion Only [facility] Rufina Morris, [address] [place] [address] [phone] [place], [place] [address] (Wo rk) Social History Tobacco Use Types Packs/Day Years Used Date Smoking Tobacco: Never Assessed Sex Assigned at Date Recorded Female 05/09/2021 7:19 PM SECURITY SYSTEMS ADMINISTRATOR documented as of this encounter Last Filed Vital Signs Vital Sign Reading Time Taken Comments Blood Pressure 139/80 05/25/2009 9:00 AM SECURITY SYSTEMS ADMINISTRATOR Pulse 112 05/25/2009 9:00 AM SECURITY SYSTEMS ADMINISTRATOR Temperature - - Respiratory Rate - - Oxygen Saturation - - Inhaled Oxygen Concentration - - Weight 95.2 kg (209 lb 15.8 oz) 05/25/2009 9:00 AM C: 9 5.3kg SECURITY SYSTEMS ADMINISTRATOR Height 166.4 cm (5' 5.5) 05/25/2009 9:00 AM C: 166.4cm SECURITY SYSTEMS ADMINISTRATOR Body Mass Index 34.41 05/25/2009 9:00 AM SECURITY SYSTEMS ADMINISTRATOR documented in this encounter Plan of Treatment Upcoming Encounters Date Type Specialty Care Team Description 05/05/2022 Appointment Chemo Therapy/Infusion Services 09/15/2022 Telemedicine Gastroenterology Eusebio Haines MD [address] [place] [address] (Wo rk) documented as of this encounter Visit Diagnoses Not on filedocumented in this encounter Care Teams Artillery Specialist Relationship Specialty Start Date End Date Munira Combs PA-C PCP - General 09/25/10 03/14/15 [address] [place], [place] [phone] documented as of this encounter
--- OUTSIDE RECORDS SUMMARY | 2022-03-20 16:18 | XMS_ITS | Encounter Summary ---
:1975 Author Organization [employer] Address [address] [address] Care Team Providers Name Role Phone Munira Combs PA-C Primary Care Provider Reason for Visit Reason Comments Other Encounter Details Date Type Department Care Team Description 03/12/2008 Telephone CONV YVAN C[facility], Message Other [address] [place] [address] Social History Tobacco Use Types Packs/Day Years Used Date Smoking Tobacco: Never Assessed Sex Assigned at Date Recorded Female 05/09/2021 7:19 PM DAIRY CLERK documented as of this encounter Progress Notes Conversion, [facility] - 03/12/2008 4:01 PM CDT Phone Note filed by [facility] Conversion at 10/13/10622 Author: [facility] Conversion Service: (none) Author Type: (none) Filed: 10/13/10622 Note Time: 03/12/08 1601 Status: Signed Online Merchant: Imr Conversion An evaluation has been requested for this patient in the department of:neurology PLEASE INDICATE IF THIS IS FOR: Consult (request opinion) Reason/Indication is REQUIRED: This may include treatment if appropriate. OR Take over care (referral) Reason/Indication is REQUIRED: Please send response to Dr Fernando Fisher [phone] The new Medicare guidelines for consultation services require that the intent of request be clearly documented in the requesting physician's medical record. These guidelines also apply to other health insurers. *ECODE~PNCONSULT Created on 12Mar2008 4:01pm by DOROTHY LIVINGSTON On 24May2008 6:52pm LAYA OLEA wrote: Have been out on maternity leave. Consult was requested for concussion and abnormal MRI. Please send on, as requested. Acknowledged by LAYA OLEA on 6:52pm This note was completed by an automated process on October 06, 2010. Y CLERK documented in this encounter Plan of Treatment Upcoming Encounters Date Type Specialty Care Team Description 05/05/2022 Appointment Chemo Therapy/Infusion Services 09/15/2022 Telemedicine Gastroenterology Eusebio Haines MD [address] [place] [address] (Wo rk) documented as of this encounter Visit Diagnoses Not on filedocumented in this encounter Care Teams Oil Burner Journeyman Relationship Specialty Start Date End Date Munira Combs PA-C PCP - General 09/25/10 03/14/15 [address] [place], [place] [phone] documented as of this encounter
--- OUTSIDE RECORDS SUMMARY | 2022-03-20 16:18 | XMS_ITS | Encounter Summary ---
:1975 Author Organization [employer] Address [address] [address] Care Team Providers Name Role Phone Munira Combs PA-C Primary Care Provider Encounter Details Date Type Department Care Team Description 08/20/2009 PN Conversion Only [place] CONVERSION Munira Combs PA-C [address] [facility] [place] [address] [place] [address] (Wo rk) Social History Tobacco Use Types Packs/Day Years Used Date Smoking Tobacco: Never Assessed Sex Assigned at Date Recorded Female 05/09/2021 7:19 PM WING SCORER documented as of this encounter Plan of Treatment Upcoming Encounters Date Type Specialty Care Team Description 05/05/2022 Appointment Chemo Therapy/Infusion Services 09/15/2022 Telemedicine Gastroenterology Eusebio Haines MD [address] [place] [address] (Wo rk) documented as of this encounter Procedures Procedure Name Priority Date/Time Associated Diagnosis Comme nts SODIUM Routine 08/20/2009 4:30 PM Results f or this WING SCORER procedure are i n the results section . documented in this encounter Results (ABNORMAL) Sodium (08/20/2009 4:30 PM WING SCORER) athologist Signature Sodium 136 (L) 137 - 147 HP CONVERSION mEq/L Specimen (Source) Anatomical Collection Method Collection Time Re ceived Time Location / / Volume Laterality 08/20/2009 4:30 PM WING SCORER Munira Combs PA-C LAB_1 Performing Organization Address City/State/ZIP Code Phon e Number HP CONVERSION documented in this encounter Visit Diagnoses Not on filedocumented in this encounter Care Teams Interior Surface Insulation Worker Relationship Specialty Start Date End Date Munira Combs PA-C PCP - General 09/25/10 03/14/15 [address] [place] [address] documented as of this encounter
--- OUTSIDE RECORDS SUMMARY | 2022-03-20 16:18 | XMS_ITS | Encounter Summary ---
:1975 Author Organization [employer] Address [address] [address] Care Team Providers Name Role Phone Muinra Combs PA-C Primary Care Provider Encounter Details Date Type Department Care Team Description 07/09/[address] [facility] [address], Dermatology [address] [place] [place] [address] [address] [place], [place] [phone] [address] (Wo rk) Social History Tobacco Use Types Packs/Day Years Used Date Smoking Tobacco: Never Assessed Sex Assigned at Date Recorded Female 05/09/2021 7:19 PM ROUTE DELIVERY DRIVER documented as of this encounter Plan of Treatment Upcoming Encounters Date Type Specialty Care Team Description 05/05/2022 Appointment Chemo Therapy/Infusion Services 09/15/2022 Telemedicine Gastroenterology Eusebio Haines MD [address] [place], [place] [address] (Wo rk) documented as of this encounter Visit Diagnoses Not on filedocumented in this encounter Care Teams Sodium Chlorite Operator Relationship Specialty Start Date End Date Munira Combs PA-C PCP - General 09/25/10 03/14/15 [address] [place], [place] [phone] documented as of this encounter
--- OUTSIDE RECORDS SUMMARY | 2022-03-20 16:18 | XMS_ITS | Encounter Summary ---
:1975 Author Organization [employer] Address [address] [place] [address] Care Team Providers Name Role Phone Munira Combs PA-C Primary Care Provider Encounter Details Date Type Department Care Team Description 05/25/2009 Procedure Visit [facility] [facility] Rufina Parker, [address] [facility] [place] [address] [phone] [place], [place] [address] (Wo rk) Social History Tobacco Use Types Packs/Day Years Used Date Smoking Tobacco: Never Assessed Sex Assigned at Date Recorded Female 05/09/2021 7:19 PM CURB MACHINE OPERATOR documented as of this encounter Progress Notes Rufina Parker MD - 05/25/2009 12:01 AM CST Progress Notes signed by Rufina Parker MD at 06/15/09 1635 Author: Rufina Parker MD Service: (none) Author Type: Physician Filed: 10/15/10 1819 Note Time: 05/25/09 0001 Status: Signed Chief Engineer: Rufina Parker MD (Physician) NAME: IGGY DUARTE MR#: [id number] ACCT: [id number] VISIT: [id number] DICTATING CLINICIAN: RUFINA PARKER MD CONFIRM #: [id number] LOC: 527 CLINIC PROGRESS NOTE DATE OF VISIT: 05/25/2009 SUBJECTIVE: : 1975. A 34-year-old woman comes in for excision of biopsy-proven dysplastic nevus on her right plantar foot. This was biopsied earlier this past summer. MEDICATIONS: Reviewed. Updated LastWord profile. ADR/ALLERGIES: REVIEWED IN LASTWORD PROFILE. OBJECTIVE: The right plantar foot: She has an irregularly shaped roughly oval macular nevus with streaky pigmentation outside the borders of the edge of the nevus. Dermatopathology report showed mild to moderately dysplastic nevus. ASSESSMENT: Atypical-appearing nevus, biopsy-proven dysplastic, here for re-excision. PLAN: Recommended fusiform excision, given location and the size. After verbal consent was obtained, and the risks, including infection, bleeding, and scar, discussed, site was anesthetized with 1% Xylocaine with epinephrine, and a fusiform excision to fat performed. Excision size 1.6 cm. Hyfrecator used for hemostasis. 3-0 Vicryl x1 simple interrupted suture placed subcutaneously, followed by 4-0 Ethilon x4 simple interrupted sutures placed superficially. Bacitracin ointment and pressure dressing applied. Wound care instructions given. Final length of wound 3.0 cm. I will contact the patient with the report when available. She will return in 2 weeks for suture removal and has a full skin check scheduled for 09/2009. MMB:[id number] C: 05/25/09 18:08 CONFIRM #: [id number] MACHINE OPERATOR documented in this encounter Plan of Treatment Upcoming Encounters Date Type Specialty Care Team Description 05/05/2022 Appointment Chemo Therapy/Infusion Services 09/15/2022 Telemedicine Gastroenterology Eusebio Haines MD [address] [place], [place] [address] (Wo rk) documented as of this encounter Visit Diagnoses Not on filedocumented in this encounter Care Teams Criminal Justice Program Director Relationship Specialty Start Date End Date Munira Combs PA-C PCP - General 09/25/10 03/14/15 [address] [place] [address] documented as of this encounter
--- OUTSIDE RECORDS SUMMARY | 2022-03-20 16:18 | XMS_ITS | Encounter Summary ---
:1975 Author Organization [employer] Address [address] [address] Care Team Providers Name Role Phone Munira Combs PA-C Primary Care Provider Encounter Details Date Type Department Care Team Description 10/27/2008 PN Conversion Only [place] [facility] Rufina Morris, [address] [facility] [place] [address] [place] [phone] [place], [place] [address] (Wo rk) Social History Tobacco Use Types Packs/Day Years Used Date Smoking Tobacco: Never Assessed Sex Assigned at Date Recorded Female 05/09/2021 7:19 PM WEB ANALYTICS SPECIALIST documented as of this encounter Plan of Treatment Upcoming Encounters Date Type Specialty Care Team Description 05/05/2022 Appointment Chemo Therapy/Infusion Services 09/15/2022 Telemedicine Gastroenterology Eusebio Haines MD [address] [place] [address] (Wo rk) documented as of this encounter Visit Diagnoses Not on filedocumented in this encounter Care Teams Manager Science Relationship Specialty Start Date End Date Munira Combs PA-C PCP - General 09/25/10 03/14/15 [address] [place], [place] [phone] documented as of this encounter
--- OUTSIDE RECORDS SUMMARY | 2022-03-20 16:18 | XMS_ITS | Encounter Summary ---
:1975 Author Organization [employer] Address [address] [address] Care Team Providers Name Role Phone Sherie Baez PA-C Primary Care Provider Encounter Details Date Type Department Care Team Description 04/28/2009 Telephone [facility] Sherie Falcon PA-C [address] [address] [place] [address] [phone] (Wo rk) Social History Tobacco Use Types Packs/Day Years Used Date Smoking Tobacco: Never Assessed Sex Assigned at Date Recorded Female 05/09/2021 7:19 PM SANDBLAST OR SHOTBLAST EQUIPMENT TENDER documented as of this encounter Progress Notes Center, Message - 04/28/2009 10:54 AM CST Phone Note filed by [employer] at 10/14/10 0264 Author: [employer] Service: (none) Author Type: (none) Filed: 10/14/10 1625 Note Time: 04/28/09 1054 Status: Signed Medical Laboratory Manager: [employer] (Resource) Prescription Refill Please provide enough refills to last until patient's next visit. Comment:- Pharmacy Seq #:-print to [facility] Pharmacy Name:-[facility] Pharmacy Street or City:-[place] Clinician Name:-A Strong Drug Name/Strength:-Dicyclomine 20MG tab Sig: Dose/Route/Freq:-take one tab 4 times daily Quantity & Last Fill:-120 11/06/07 Created on 28Apr2009 10:54am by CATIE AVILEZ On 28Apr2009 11:11am SHERIE BAEZ wrote: Sent. Acknowledged by SHERIE BAEZ on 11:11am BLAST OR SHOTBLAST EQUIPMENT TENDER documented in this encounter Plan of Treatment Upcoming Encounters Date Type Specialty Care Team Description 05/05/2022 Appointment Chemo Therapy/Infusion Services 09/15/2022 Telemedicine Gastroenterology Eusebio Haines MD [address] [place] [address] (Wo rk) documented as of this encounter Visit Diagnoses Not on filedocumented in this encounter Care Teams Fabrication Technician Relationship Specialty Start Date End Date Sherie Baez PA-C PCP - General 09/25/10 03/14/15 [address] [place], [place] [phone] documented as of this encounter
--- OUTSIDE RECORDS SUMMARY | 2022-03-20 16:18 | XMS_ITS | Encounter Summary ---
:1975 Author Organization [employer] Address [address] [place] [address] Care Team Providers Name Role Phone Munira Combs PA-C Primary Care Provider Reason for Visit Reason Comments Other Encounter Details Date Type Department Care Team Description 02/18/2009 Telephone [facility] [address] [place], Message Other [address] [place], [place] [phone] Social History Tobacco Use Types Packs/Day Years Used Date Smoking Tobacco: Never Assessed Sex Assigned at Date Recorded Female 05/09/2021 7:19 PM QUALITY INTERNSHIP documented as of this encounter Progress Notes Center, Message - 02/18/2009 1:42 PM CDT Phone Note filed by [employer] at 10/14/10 1048 Author: [employer] Service: (none) Author Type: (none) Filed: 10/14/10 1044 Note Time: 02/18/09 1342 Status: Signed Order Administrator: [employer] (Resource) MESSAGE TO CARE TEAM NAME OF CALLER:Patient NAME OF CLINICIAN:Dr. Christianson MESSAGE:please fax gls rx to [phone]. She knows it is . PHARMACY NAME: PHARMACY PHONE #: CITY: CALL BACK PHONE OR CELL PHONE:[phone] BEST TIME TO CALL BACK: IS IT OK TO LEAVE A CONFIDENTIAL MESSAGE ON THIS VOICEMAIL? *ECODE~PNMSG Created on 18Feb2009 1:42pm by AIDAN CHA On 18Feb2009 2:11pm ENID STRANGE wrote: faxed pts 06-22-2006 eyeglass rx to # above Acknowledged by ENID STRANGE on 2:11pm [employer] documented in this encounter Plan of Treatment Upcoming Encounters Date Type Specialty Care Team Description 05/05/2022 Appointment Chemo Therapy/Infusion Services 09/15/2022 Telemedicine Gastroenterology Eusebio Haines MD [address] [place] [address] (Wo rk) documented as of this encounter Visit Diagnoses Not on filedocumented in this encounter Care Teams Cyber Defense Incident Responder Relationship Specialty Start Date End Date Munira Combs PA-C PCP - General 09/25/10 03/14/15 [address] [place], [place] [phone] documented as of this encounter
--- OUTSIDE RECORDS SUMMARY | 2022-03-20 16:18 | XMS_ITS | Encounter Summary ---
:1975 Author Organization [facility] Address [address] [address] Care Team Providers Name Role Phone Sherie Baez PA-C Primary Care Provider Reason for Visit Reason Comments Other Encounter Details Date Type Department Care Team Description 05/11/2010 Telephone [facility] Sherie Falcon PA-C Other [address] [address] [place] [address] [phone] (Wo rk) Social History Tobacco Use Types Packs/Day Years Used Date Smoking Tobacco: Never Assessed Sex Assigned at Date Recorded Female 05/09/2021 7:19 PM PEOPLE GREETER documented as of this encounter Progress Notes Center, Message - 05/11/2010 4:07 PM CST Phone Note filed by CCM Benchmark at 10/15/102329 Author: CCM Benchmark Service: (none) Author Type: (none) Filed: 10/15/102329 Note Time: 05/11/10 1607 Status: Signed Athletic Training Internship: CCM Benchmark (Resource) PRESCRIPTION REFILL Request #1: Please provide enough refills to last until patient's next visit. Comment:- Pharmacy Seq #:-print to [facility] Name-Phone/Fax:-[place] [facility] Street or City:- [place] Clinician Name:-A Strong Drug Name/Strength:-HCTZ 25mg Sig: Dose/Route/Freq:-take one tab daily Quantity & Last Fill:-90 03/15/10 PRESCRIPTION REFILL Request #2: Comment:- Drug Name/Strength:-Amitriptyline HCL 25mg Sig: Dose/Route/Freq:-take 1 to 2 tabs every night at bedtime Quantity & Last Fill:-90 03/17/10 PRESCRIPTION REFILL Request #3: Comment:- Drug Name/Strength:-Nortrel 1-35 tab Sig: Dose/Route/Freq:-take active pills daily, (21) then discard inactive pills (last 7)and begin the active pills in next package Quantity & Last Fill:-112 03/15/10 *ECODE~PNRF3 Created on 11May2010 4:07pm by CATIE AVILEZ On 13May2010 8:58pm OMEGA NORWOOD wrote: RX sent for HCTZ and amitriptyline for #30 days, pt. due for appt./las in 2007. Unable to fill RX for BCP, no Pap since 2007, please advise on that refill, then send to frontline for reminder call to pt. for appt./labs. On 16May2010 10:55am SHERIE BAEZ wrote: Sent x 1 month. Needs appt. Acknowledged by SHERIE BAEZ on 10:55am LE GREETER documented in this encounter Plan of Treatment Upcoming Encounters Date Type Specialty Care Team Description 05/05/2022 Appointment Chemo Therapy/Infusion Services 09/15/2022 Telemedicine Gastroenterology Eusebio Haines MD [address] [place], [place] [address] (Wo rk) documented as of this encounter Visit Diagnoses Not on filedocumented in this encounter Care Teams Market Research Assistant Relationship Specialty Start Date End Date Sherie Baez, PAZitaC PCP - General 09/25/10 03/14/15 [address] [place], [place] [phone] documented as of this encounter
--- OUTSIDE RECORDS SUMMARY | 2022-03-20 16:18 | XMS_ITS | Encounter Summary ---
:1975 Author Organization [employer] Address [address], [place] [address] Care Team Providers Name Role Phone Munira Combs PA-C Primary Care Provider Encounter Details Date Type Department Care Team Description 11/09/2008 Orthopedic Surgeon Only [place] [address] Deepti Morris, Dermatology [address] [facility] [address] [place] [address] [id number] [phone] Social History Tobacco Use Types Packs/Day Years Used Date Smoking Tobacco: Never Assessed Sex Assigned at Date Recorded Female 05/09/2021 7:19 PM SCHEDULE MANAGER documented as of this encounter Progress Notes Rufina Morris MD - 11/09/2008 12:01 AM CDT Progress Notes signed by Rufina Morris MD at 11/09/08 1113 Author: Rufina Morris MD Service: (none) Author Type: Physician Filed: 10/15/10 1310 Note Time: 11/09/08 0001 Status: Signed Film Editor Supervisor: Rufina Morris MD (Physician) Patient informed of biopsy results from right foot--mild to moderately DN. Given location and appearance, we discussed complete removal. She would like to schedule that at the end of the summer. She will call for a surgery appt.when her schedule is available. documented in this encounter Plan of Treatment Upcoming Encounters Date Type Specialty Care Team Description 05/05/2022 Appointment Chemo Therapy/Infusion Services 09/15/2022 Telemedicine Gastroenterology Eusebio Haines MD [address] [place] [address] (Wo rk) documented as of this encounter Visit Diagnoses Not on filedocumented in this encounter Care Teams Viner Operator Relationship Specialty Start Date End Date Munira Combs PA-C PCP - General 09/25/10 03/14/15 [address] [place], [place] [phone] documented as of this encounter
--- OUTSIDE RECORDS SUMMARY | 2022-03-20 16:18 | XMS_ITS | Encounter Summary ---
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 A 34-year-old woman comes in for a recheck of her skin. She was last seen 05/2009. She has a history of dysplastic nevus on her right plantar foot, excised in the past, as well as superficial basal cell carcinoma of the left thigh, treated by CARRIE and C by Dr. Mott. She has also had an atypical melanocytic lesion on her upper abdomen removed in 06/2008. She has noted nothing worrisome since her last exam. She continues with trying to avoid the sun. Does not use tanning beds like she used to. Does wear sunblock. Is outside quite a bit. She has 2 horses that she rides. MEDICATIONS: Reviewed and updated in the LastWord profile. ADR/ALLERGIES: REVIEWED IN LASTWORD PROFILE. FAMILY HISTORY: Negative for melanoma. OBJECTIVE: She is a very pleasant woman, less dawn than she has been in the past, in no distress. The face, scalp, neck, anteroposterior trunk, both upper extremities, lower extremities, including palpation of the skin, fingernails and toenails, reveal face shows photodamage, especially on the cheeks. She does have a number of nevi on the trunk, including a light-brown to medium-brown macular nevus with slight irregular border just superiorly above the right breast on the right chest; a small, about 2-3 mm, medium-brown, macular nevus with benign pigmentation just above that. She has a 7 x 3 mm, oval-shaped, compound-appearing nevus just under the left breast. She notes all these moles have been present for years without change. She has a number of other nevi scattered on the legs and arms that do not appear worrisome. Nothing that is worrisome for recurrent basal cell on the left thigh, and she has a scar on the upper abdomen from the atypical melanocytic lesion, without evidence of recurrent pigmentation at that site. Also, scar noted on her right foot plantar surface, without evidence of pigment recurrence. ASSESSMENT: History of atypical melanocytic lesion and dysplastic nevi. Possible dysplastic nevi, right chest and left breast. PLAN: We discussed options of removal of these moles today. However, she would like to continue to observe, so I measured the larger compound nevus for documentation and would recommend she follow up in 4-6 months for recheck of her skin, certainly sooner if she notes any worrisome changes. Continued avoidance of tanning beds and sun recommended. MMB:[id number] C: 01/12/10 12:13 CONFIRM #: [id number] documented in this encounter Plan of Treatment Upcoming Encounters Date Type Specialty Care Team Description 05/05/2022 Appointment Chemo Therapy/Infusion Services 09/15/2022 Telemedicine Gastroenterology Eusebio Haines MD [address] [place] [address] (Wo rk) documented as of this encounter Visit Diagnoses Not on filedocumented in this encounter Care Teams Hole Digger Truck Driver Relationship Specialty Start Date End Date Munira Combs PA-C PCP - General 09/25/10 03/14/15 [address] [place], [place] [phone] documented as of this encounter
--- OUTSIDE RECORDS SUMMARY | 2022-03-20 16:18 | XMS_ITS | Encounter Summary ---
:1975 Author Organization [employer] Address [address], [place] [address] Care Team Providers Name Role Phone Munira Combs PA-C Primary Care Provider Encounter Details Date Type Department Care Team Description 07/09/2008 PN Conversion Only [facility] CONVERSION Katerina Britton, VOICE INSTRUCTOR, RETAIL CUSTODIAL ASSOCIATE [address] [place] [address] (Wo rk) Social History Tobacco Use Types Packs/Day Years Used Date Smoking Tobacco: Never Assessed Sex Assigned at Date Recorded Female 05/09/2021 7:19 PM BASIC ACOUSTIC ANALYST documented as of this encounter Plan of Treatment Upcoming Encounters Date Type Specialty Care Team Description 05/05/2022 Appointment Chemo Therapy/Infusion Services 09/15/2022 Telemedicine Gastroenterology Eusebio Haines MD [address] [place], [place] [address] (Wo rk) documented as of this encounter Procedures Procedure Name Priority Date/Time Associated Diagnosis Comme nts DERM PATH-DPF Routine 07/09/2008 10:57 AM Results for this BASIC ACOUSTIC ANALYST procedure are i n the results section . documented in this encounter Results Derm Path-Dpf (07/09/2008 10:57 AM BASIC ACOUSTIC ANALYST) [facility] gist Method Time Signature Dermatopathology SEE TEXT No normal HP CONVERSION Final Report range Comment: Patient: IGGY DUARTE ?D ERMATOPATHOLOGY Pathology # [id number] ?Date Obtained: ? Date Received: DIAGNOSIS: A) ??Skin, left upper thigh, shave biops y: ?- Basal cell carcinoma, superficia l multicentric type, present at biopsy ?margin. B) ??Skin, mid abdomen, shave biopsy: ?- Severely atypical compound melan ocyte proliferation, present at deep and ?peripheral biopsy margins; see comment. COMMENT (B): ?The histologic differential diagno sis is between a severely atypical ?compound dysplastic nevus, and annabella anoma in situ arising in a dysplastic ?nevus. Re-excision with a margin o f 0.5 cm is advised, for therapeutic as ?well as diagnostic considerations. ?Lavon Sal MD ?(electronic signature) RWW/RWW/kjs Date of Report: 07/20/08 CLINICAL DIAGNOSIS: ?R/O BCC/DN vs other ORGAN/TISSUE SITE: ?Left upper thigh/Mid abdomen GROSS DESCRIPTION: A) ??Received is a 0.9 x 0.5 x 0.1 cm sk in specimen. Bisected and submitted. B) ??Received is a 0.8 x 0.5 x 0.1 cm sk in specimen. Bisected and submitted. ?(Gross examination performed by [facility], [place], [place].) RWW/manager labor relations Specimen (Source) Anatomical Collection Method Collection Time Re ceived Time Location / / Volume Laterality 07/09/2008 10:57 AM BASIC ACOUSTIC ANALYST Katerina Britton APRN, CNP LAB_1 Performing Organization Address City/State/ZIP Code Phon e Number HP CONVERSION documented in this encounter Visit Diagnoses Not on filedocumented in this encounter Care Teams Oxidation Engineer Relationship Specialty Start Date End Date Munira Combs PA-C PCP - General 09/25/10 03/14/15 [address] [place] [address] documented as of this encounter
--- OUTSIDE RECORDS SUMMARY | 2022-03-20 16:18 | XMS_ITS | Encounter Summary ---
:1975 Author Organization [employer] Address [address] [place] [address] Care Team Providers Name Role Phone Munira Combs PA-C Primary Care Provider Reason for Visit Reason Comments Other Encounter Details Date Type Department Care Team Description 03/03/2008 [facility] Rafita Santana LPN Other [address] [place] [address] Social History Tobacco Use Types Packs/Day Years Used Date Smoking Tobacco: Never Assessed Sex Assigned at Date Recorded Female 05/09/2021 7:19 PM INSOLE TAPE STITCHER UCO documented as of this encounter Progress Notes Radha Olea MD - 03/03/2008 9:12 AM CDT Phone Note filed by Radha Olea MD at 10/13/10532 Author: Radha Olea MD Service: (none) Author Type: Physician Filed: 10/13/1033 Note Time: 03/03/08911 Status: Signed Guest Service Supervisor: Radha Olea MD (Physician) Spoke with Dr. Fisher in neurology regarding patient's MRI scan and further evaluation. Advised additional lab studies of calcium level, TERRY level (angiotensin converting enzyme level), Sjogren's antibodies A and B, as well as a UA. Then, patient should be seen in neurology. Appt on the was felt to be fine, so please schedule then. (FYI - lab studies are for abnormal radiologic study of brain). Created on 03Mar2008 9:12am by RADHA OLEA On 03Mar2008 11:08am RAFITA ALEXIS wrote: Added lab tests to blood already drawn. Scheduled appt and notified pt. Acknowledged by RAFITA ALEXIS on 2:25pm LE TAPE STITCHER UCO documented in this encounter Plan of Treatment Upcoming Encounters Date Type Specialty Care Team Description 05/05/2022 Appointment Chemo Therapy/Infusion Services 09/15/2022 Telemedicine Gastroenterology Eusebio Haines MD [address] [place] [address] (Wo rk) documented as of this encounter Visit Diagnoses Not on filedocumented in this encounter Care Teams Waiter/Waitress Take Out Relationship Specialty Start Date End Date Munira Combs PA-C PCP - General 09/25/10 03/14/15 [address] [place] [address] documented as of this encounter
--- OUTSIDE RECORDS SUMMARY | 2022-03-20 16:18 | XMS_ITS | Encounter Summary ---
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
--- OUTSIDE RECORDS SUMMARY | 2022-03-20 16:18 | XMS_ITS | Encounter Summary ---
:1975 Author Organization [employer] Address [address], [place] [address] Care Team Providers Name Role Phone Munira Combs PA-C Primary Care Provider Encounter Details Date Type Department Care Team Description 05/07/2008 PN Conversion Only [employer] [facility] [facility] Munira Combs PA-C [address] [address] [place] [address] (Wo rk) Social History Tobacco Use Types Packs/Day Years Used Date Smoking Tobacco: Never Assessed Sex Assigned at Date Recorded Female 05/09/2021 7:19 PM WHITE SUGAR SUPERVISOR documented as of this encounter Plan of Treatment Upcoming Encounters Date Type Specialty Care Team Description 05/05/2022 Appointment Chemo Therapy/Infusion Services 09/15/2022 Telemedicine Gastroenterology Eusebio Haines MD [address] [place], [place] [address] (Wo rk) documented as of this encounter Procedures Procedure Name Priority Date/Time Associated Comments Diagnosis ANATOMICAL PATH Routine 05/07/2008 11:05 AM Resul ts for this LIQUID BASED WHITE SUGAR SUPERVISOR procedure are i n the results section. documented in this encounter Results Pap Smear (05/07/2008 11:05 AM WHITE SUGAR SUPERVISOR) [facility] Time Signature PAP Smear SEE TEXT No normal HP CONVERSION Liquid Based range Comment: Patient: IGGY DUARTE ? CERVICAL CYTOLOGY REPORT Pathology # ??[id number] ?Date Obtained: ? Date Received: CYTOLOGIC IMPRESSION: Negative for intraepithelial lesion or m alignancy. Verified 05/12/08 by: ??TSC ?(electronic signature) ? CELSO TIONAL DATA LMP: CLINICAL HIST LIQUID BASED PAP CERVICAL SPECIMEN ADEQUACY: ?? Satisfactory. ENDOCERVICAL CELLS: ??Absent. Specimen (Source) Anatomical Collection Method Collection Time Re ceived Time Location / / Volume Laterality 05/07/2008 11:05 AM WHITE SUGAR SUPERVISOR Munira Combs PA-C LAB_1 Performing Organization Address City/State/ZIP Code Phon e Number HP CONVERSION documented in this encounter Visit Diagnoses Not on filedocumented in this encounter Care Teams Automotive Painter Helper Relationship Specialty Start Date End Date Munira Combs PA-C PCP - General 09/25/10 03/14/15 [address] [place] [address] documented as of this encounter
--- OUTSIDE RECORDS SUMMARY | 2022-03-20 16:18 | XMS_ITS | Encounter Summary ---
:1975 Author Organization [employer] Address [address] [address] Care Team Providers Name Role Phone Sherie Baez PA-C Primary Care Provider Reason for Visit Reason Comments Other Encounter Details Date Type Department Care Team Description 05/21/2009 Telephone [facility] Sherie Falcon PA-C Other [address] [employer] [address] [address] [place] [address] [phone] (Wo rk) Social History Tobacco Use Types Packs/Day Years Used Date Smoking Tobacco: Never Assessed Sex Assigned at Date Recorded Female 05/09/2021 7:19 PM ADVERTISING PRODUCTION MANAGER documented as of this encounter Progress Notes Center, Message - 05/21/2009 3:35 PM CST Phone Note filed by [employer] at 10/14/101820 Author: [employer] Service: (none) Author Type: (none) Filed: 10/14/101820 Note Time: 05/21/091534 Status: Signed Senior Marketing Data Analyst: [employer] (Resource) PRESCRIPTION REFILL Please provide enough refills to last until patient's next visit. Comment:- Pharmacy Seq #:-print to [facility]-Phone/Fax:-[facility] Street or City:- [place] Clinician Name:-A Strong Drug Name/Strength:-Phentermine 30MG cap Sig: Dose/Route/Freq:- take one cap daily Quantity & Last Fill:05/01/07 *ECODE~PNRF Created on 21May2009 3:35pm by CATIE AVILEZ On 21May2009 5:00pm SHERIE BAEZ wrote: Denied for now. I want to discuss this first. Appt on 05-26-09. Possible interaction with amitriptyline. Acknowledged by SHERIE BAEZ on 5:00pm RTISING PRODUCTION MANAGER documented in this encounter Plan of Treatment Upcoming Encounters Date Type Specialty Care Team Description 05/05/2022 Appointment Chemo Therapy/Infusion Services 09/15/2022 Telemedicine Gastroenterology Eusebio Haines MD [address] [place] [address] (Wo rk) documented as of this encounter Visit Diagnoses Not on filedocumented in this encounter Care Teams Hand Ii Tube Bender Relationship Specialty Start Date End Date Sherie Baez PA-C PCP - General 09/25/10 03/14/15 [address], [place] [phone] documented as of this encounter
--- OUTSIDE RECORDS SUMMARY | 2022-03-20 16:18 | XMS_ITS | Encounter Summary ---
:1975 Author Organization [employer] Address [address], [place] [address] Care Team Providers Name Role Phone Sherie Baez PA-C Primary Care Provider Reason for Visit Reason Comments Other Encounter Details Date Type Department Care Team Description 01/03/2010 Telephone [facility] Sherie Falcon PA-C Other [address] [address] [place] [address] [phone] (Wo rk) Social History Tobacco Use Types Packs/Day Years Used Date Smoking Tobacco: Never Assessed Sex Assigned at Date Recorded Female 05/09/2021 7:19 PM BISQUE WARE DIPPER documented as of this encounter Progress Notes Center, Message - 01/03/2010 9:01 AM CDT Phone Note filed by [employer] at 10/15/10 4541 Author: [employer] Service: (none) Author Type: (none) Filed: 10/15/10 1233 Note Time: 01/03/10900 Status: Signed Freight Adjuster: [employer] (Resource) PRESCRIPTION REFILL Please provide enough refills to last until patient's next visit. Comment:- Pharmacy Seq #:-[facility] to [facility] Pharmacy Name-Phone/Fax:-[phone] or City:-[place] Clinician Name:-[facility] Name/Strength:-Dicyclomine 20mg tabs Sig: Dose/Route/Freq:-Take 1 tab 4 times a day as needed. Quantity & Last Fill:-120 10/01/09 *ECODE~PNRF Created on 03Jan2010 9:01am by ANGIE ALVARENGA On 03Jan2010 9:02am ANGIE ALVARENGA wrote: ADDITIONAL PRESCRIPTION REFILL:2 Comment:- Drug Name/Strength:-HCTZ 25mg tabs Sig:-Take 1 tab daily Quantity/Last Refill:-30 10/01/09 *ECODE~PNARF On 03Jan2010 9:09am SHERIE BAEZ wrote: Rxs sent. Please ask her to come in for a nurse visit for BP check. (She works at [employer] [facility] [employer], she could have it done there. I want to see what her BP is now that she is on HCTZ). Acknowledged by SHERIE BAEZ on 9:09am On 03Jan2010 9:39am LENNY SANON wrote: Pt notifed, will have bp checked at [facility] and have nurse send results to Sherie Louise. Acknowledged by LENNY SANON on 9:39am Acknowledged by SHERIE BAEZ on [id number] 9:57am UE WARE DIPPER documented in this encounter Plan of Treatment Upcoming Encounters Date Type Specialty Care Team Description 05/05/2022 Appointment Chemo Therapy/Infusion Services 09/15/2022 Telemedicine Gastroenterology Eusebio Haines MD [address] [place] [address] (Wo rk) documented as of this encounter Visit Diagnoses Not on filedocumented in this encounter Care Teams [place] Boatman Relationship Specialty Start Date End Date Sherie Baez PAZitaC PCP - General 09/25/10 03/14/15 [address], [place] [phone] documented as of this encounter
--- OUTSIDE RECORDS SUMMARY | 2022-03-20 16:18 | XMS_ITS | Encounter Summary ---
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 documented as of this encounter Progress Notes Barby Mott MD, PhD - 07/22/2008 12:01 AM CST Progress Notes signed by Barby Mott MD at 07/22/08 0907 Author: Barby Mott MD Service: (none) Author Type: Physician Filed: 10/15/10 1009 Note Time: 07/22/08 0001 Status: Signed Attendance Secretary: Barby Mott MD (Physician) Dermatology Clinic Visit SUBJECTIVE: History of Present Illness: Patient presents in consultation at the request of Katerina Britton regarding a recent biopsy of a superficial basal cell carcinoma on her left thigh and discussion of treatment options for an atypical melanocytic proliferation on her abdomen. Idania describes the area on her left thigh is being present for about a year. It would not change color when she would dawn like the rest of her skin, and was always slightly scaly. The biopsy at this site showed a superficial multifocal basal cell carcinoma, with positive extension to one margin. Additionally, she notes the very dark mole on her upper abdomen had been present for a long time. She was not aware of it changing in size, shape, or color. The biopsy demonstrated a very atypical melanocytic proliferation, for which melanoma in situ was in the differential. Patient does not have a pacemaker or defibrillator. Past medical history: Prior to this diagnosis, no other previous history of skin cancer. Family history : No history of melanoma or non-melanoma skin cancer. Adverse Drug Reactions: Reviewed. See PHP in LastWord. Medications: Reviewed. See Medication List in LastWord. Social history : Patient works at [employer]. 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 OBJECTIVE: General: No acute distress. Neuro/Pysch: Alert and oriented. Mood and affect appropriate. Skin: Womack type III, moderately dawn today. On the patient's upper mid abdomen is a hypopigmented area consistent with a shave biopsy site. It is 5 mm in diameter. There is no evidence of pigmentation at the margins. On the patient's left upper thigh there is an approximately 4 mm crusted lesion consistent with the biopsy site for her superficial BCC. ASSESSMENT: 1. Residual superficial basal cell carcinoma based on histology, left upper thigh. 2. Severely atypical melanocytic proliferation, mid abdomen. Recommend excision with margins of .5 cm in reevaluation with histopathological examination to rule out melanoma in situ. Regular follow up skin exams and discontinuation of tanning recommended. Frequency of skin exams will be based on final histology results from abdomen excision. PLAN: 1. Left upper thigh, BCC. Electrodesiccation and curettage (ED&C) with margins for complete treatment. Procedure: ED&C SURGICAL SITE:Left upper thigh PREOPERATIVE LESION SIZE: 4mm SURGICAL DEFECT SIZE: 1.2 cm The nature and purpose of the procedure, associated risks, possible consequences and complications were discussed with the patient before an informed verbal operative consent was obtained. These include but are not limited to risks of discomfort, infection, bleeding, scar, and recurrence. The clinical margins of the lesions were delineated. Buffered 1% lidocaine with epinephrine was infiltrated locally for anesthesia. The surgical site was then sterilely prepped with Hibiclens and draped. The lesion with margins was curetted with a nondisposable 4-mm curette in 4 directions, followed by electrodesiccation. Three cycles of curettage and electrodesiccation were completed to ensure full removal. Patient tolerated procedure well without complications . 2. Excision with margins for complete removal. OPERATION: Excision with 5 mm margins and intermediate layered closure. PREOPERATIVE LESION SIZE: 5 mm SURGICAL DEFECT SIZE: 1.5 mm FINAL CLOSURE LENGTH: 5.2 cm SUTURE REMOVAL APPOINTMENT: Two weeks Procedure: The nature and purpose of the procedure, associated risks, possible consequences and complications were discussed with the patient before an informed verbal operative consent was obtained. These include but are not limited to risks of discomfort, infection, bleeding, scar, and recurrence. The clinical margins of the lesions were delineated and marked with a pen. Buffered 1% lidocaine with epinephrine was infiltrated locally for anesthesia. The surgical site was then sterilely prepped with Hibiclens and draped. The lesion was then excised in an ellipse with margins. The excision was carried to the subcutis. Wound edges were undermined, approximately 0.5 cm in all directions. Hemostasis achieved with focal electrocoagulation. Subcutaneous tissues were brought together with a 4-0 Vicryl suture. Epidermal edges were reapproximated with 4-0 Prolene sutures. Vaseline ointment and a pressure gauze dressing were applied to the closed wound. Patient tolerated procedure well without complications . Patient was given verbal and written explicit instructions on postoperative wound care, pain management, and interval for suture removal. Patient was recommended Extra Strength Tylenol per package directions as needed for mild pain control. Patient was discharged from the dermatology clinic ambulatory and in good condition. CC: Katerina Britton *SH~DNS~EXC UETTE MACHINE OPERATOR documented in this encounter Plan of Treatment Upcoming Encounters Date Type Specialty Care Team Description 05/05/2022 Appointment Chemo Therapy/Infusion Services 09/15/2022 Telemedicine Gastroenterology Eusebio Haines MD [address] [place] [address] (Wo rk) documented as of this encounter Visit Diagnoses Not on filedocumented in this encounter Care Teams Photo Mask Cleaner Relationship Specialty Start Date End Date Munira Combs PA-C PCP - General 09/25/10 03/14/15 [address] [place] [address] documented as of this encounter
--- OUTSIDE RECORDS SUMMARY | 2022-03-20 16:18 | XMS_ITS | Encounter Summary ---
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 Wrqjcg-mxg-kkgt-old woman comes in for evaluation of her skin. She has a history of recent superficial basal cell on the left thigh treated by CARRIE landers C by Dr. Mott. Also had an atypical melanocytic lesion on her upper abdomen removed at that appointment. She has noted no changes in moles since her last exam. Nothing that has been bleeding, itching, or symptomatic. She has a mole on the bottom of her right foot that was noted at her appointment that she wanted specifically checked. She denies any definite changes in this mole. MEDICATIONS: Reviewed, updated LastWord profile. ADR/ALLERGIES: REVIEWED LASTWORD PROFILE. OBJECTIVE: On exam, she is a diffusely dawn pleasant young woman, no distress. Evaluation skin of the face, scalp, neck, anteroposterior trunk, both upper extremities, lower extremities, including palpation of skin, examination of fingernails and toenails reveal face shows no worrisome lesions. She has a slightly irregularly bordered macular nevus on the right upper chest, 4 x 5 mm. Does not have any definite worrisome features on dermatoscopy. The mole on the left breast at about the 6 o'clock position below the areola 8 x 9 mm, medium brown in color. She states this has not changed. It has a little more concentrated pigmentation centrally. On the right plantar foot, she has an approximately 8 mm, circular, brown nevus with 2 streaks of pigmentation that do not have usual acral pattern on dermatoscopy. The scar noticed on her left thigh and her abdomen are without evidence of recurrence at either site. ASSESSMENT: History of recent basal cell carcinoma on the left thigh. No evidence of recurrence. Atypical melanocytic lesion excised from the abdomen in June. No evidence of recurrence. Rule out dysplastic nevus, right plantar foot. Multiple nevi. History of tanning. Recommended a punch biopsy from the mole to determine its nature and determine whether excision is advised, and after verbal consent was obtained, the risk of punch biopsy, including infection, bleeding, and scar were discussed. Site was anesthetized with 1% Xylocaine with epinephrine, 4 mm punch biopsy from a darker area and near this streaky pigmentation was performed. 3-0 Ethilon x2 simple interrupted sutures placed superficially. Polysporin ointment, pressure dressing applied. Wound care instructions given. I will contact her with the report when available, and followup will be based on the report, but at least in 6 months for recheck of moles, especially the ones on her chest. Discussed with her discontinuation of tanning. 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 PLAN: See Assessment. [id number] C: 10/28/08 14:50 CONFIRM #: [id number] documented in this encounter Plan of Treatment Upcoming Encounters Date Type Specialty Care Team Description 05/05/2022 Appointment Chemo Therapy/Infusion Services 09/15/2022 Telemedicine Gastroenterology Eusebio Haines MD [address] [address] (Wo rk) documented as of this encounter Visit Diagnoses Not on filedocumented in this encounter Care Teams Polishing Machine Tender Relationship Specialty Start Date End Date Munira Combs PA-C PCP - General 09/25/10 03/14/15 [address] [place], [place] [id number] documented as of this encounter
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
--- OUTSIDE RECORDS SUMMARY | 2022-03-20 16:19 | XMS_ITS | Encounter Summary ---
:1975 Author Organization [employer] Address [address], [place] [address] Care Team Providers Name Role Phone Munira Baez PA-C Primary Care Provider Reason for Visit Reason Comments Other Encounter Details Date Type Department Care Team Description 02/06/2008 Telephone [facility], Message Other [address] [place], [place] [address] Social History Tobacco Use Types Packs/Day Years Used Date Smoking Tobacco: Never Assessed Sex Assigned at Date Recorded Female 05/09/2021 7:19 PM GLASSIE documented as of this encounter Progress Notes Center, Message - 02/06/2008 2:33 PM CDT Phone Note filed by [employer] at 10/13/105 Author: [employer] Service: (none) Author Type: (none) Filed: 10/13/10 0338 Note Time: 02/06/08 1433 Status: Signed Toy Maker: [employer] PRESCRIPTION REFILL Request #1: Please provide enough refills to last until patient's next visit. Comment:- Pharmacy Seq #:-PRINT TO [facility]acy Name:-[facility] Street or City:-[place] Clinician Name:-Chrissy BAEZ Drug Name/Strength:-NORTREL TAB Sig: Dose/Route/Freq:-TAKE ONE TAB DAILY, CONTINUOUSLY DIRECTED Quantity & Last Fill:-112 02/06/08 - PRESCRIPTION REFILL Request #2: Comment:- Drug Name/Strength:-AMITRIPTYLINE HCL 25MG TAB Sig: Dose/Route/Freq:-TAKE 1-2 TABS EVERY NIGHT AT BEDTIME Quantity & Last Fill:-60 02/06/08 Created on 06Feb2008 2:33pm by CATIE AVILEZ On 07Feb2008 11:22am SMITH [facility]TH wrote: Renewed medications per medication refill protocol. SIE documented in this encounter Plan of Treatment Upcoming Encounters Date Type Specialty Care Team Description 05/05/2022 Appointment Chemo Therapy/Infusion Services 09/15/2022 Telemedicine Gastroenterology Eusebio Haines MD [address] [place] [address] (Wo rk) documented as of this encounter Visit Diagnoses Not on filedocumented in this encounter Care Teams Venetian Blind Tape Cutter Relationship Specialty Start Date End Date Munira Baez PA-C PCP - General 09/25/10 03/14/15 [address] [place] [address] documented as of this encounter
--- OUTSIDE RECORDS SUMMARY | 2022-03-20 16:19 | XMS_ITS | Encounter Summary ---
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 GLUCOSE Routine 03/02/2008 5:06 PM Results f or this CDT procedure are i n the results section. CREATININE / GFR Routine 03/02/2008 5:06 PM Resul ts for this CDT procedure are i n the results section. COMPLETE BLOOD Routine 03/02/2008 5:06 PM Results for this COUNT-W/DIFF CDT procedure are i n the results section. GT (GAMMA GT) Routine 03/02/2008 5:06 PM Results for this CDT procedure are i n the results section. JOHAN SCREEN Routine 03/02/2008 5:06 PM Results f or this CDT procedure are i n the results section. ALT (SGPT) Routine 03/02/2008 5:06 PM Results f or this CDT procedure are i n the results section. AST Routine 03/02/2008 5:06 PM Results f or this CDT procedure are i n the results section. CALCIUM Routine 03/02/2008 5:06 PM Results f or this CDT procedure are i n the results section. BUN Routine 03/02/2008 5:06 PM Results f or this CDT procedure are i n the results section. BILIRUBIN, TOTAL Routine 03/02/2008 5:06 PM Resul ts for this CDT procedure are i n the results section. ALKALINE PHOSPHATASE, Routine 03/02/2008 5:06 PM Results for this TOTAL CDT procedure are i n the results section. ANGIOTENSIN Routine 03/02/2008 4:33 PM Results f or this CONVERTING CDT procedure are i n ENZYME-SERUM the results section. SSA (CAMILO) IGG Routine 03/02/2008 4:33 PM Results for this ANTIBODY CDT procedure are i n the results section. ANTI SS-B (LA) Routine 03/02/2008 4:33 PM Results for this CDT procedure are i n the results section. documented in this encounter Results (ABNORMAL) Complete Blood Count-W/Diff (03/02/2008 5:06 PM CDT) [facility] gist Method Time Signature White Blood Cell 8.3 3.8 - 11.0 HP CONVERSIO N Count K/cmm Red Blood Cell 4.40 3.70 - HP CONVERSION Count 5.20 m/cmm Hemoglobin 13.4 11.8 - HP CONVERSION 15.5 gm/dL Hematocrit 38.8 35.0 - HP CONVERSION 46.0 % Mean Corpuscular 88.2 80.0 - HP CONVERSION Volume 100.0 fl Mean Corpuscular 30.5 27.0 - HP CONVERSION Hemoglobin 34.0 pg Mean Corpuscular 34.6 32.0 - HP CONVERSION Hemoglobin Conc 36.5 gm/dL Vaughn RDW 10.9 (L) 11.0 - HP CONVERSION 15.0 % Platelet Count 320 140 - 450 HP CONVERSION k/cmm Differential Auto-Dif No normal HP CONVERSION Verify range Neutrophils 4.1 2.0 - 7.5 HP CONVERSION Absolute Count K/cmm Neutrophil 48.8 (L) 50.0 - HP CONVERSION 75.0 % Lymphocyte % 42.6 (H) 20.0 - HP CONVERSION 40.0 % Monocyte 5.1 5.0 - 14.0 HP CONVERSION % Eosinophil 2.6 0.0 - 6.0 HP CONVERSION % Basophil % 0.9 0.0 - 2.0 HP CONVERSION % Specimen (Source) Anatomical Collection Method Collection Time Re ceived Time Location / / Volume Laterality 03/02/2008 5:06 PM CDT Radha Schwartz MD LAB_1 Performing Organization Address [facility]/ZIP [facility] Phon e Number HP CONVERSION Alkaline Phosphatase, Total (03/02/2008 5:06 PM CDT) athologist Signature Alk Phos 74 25 - 135 U/L HP CONVERSION Specimen (Source) Anatomical Collection Method Collection Time Re ceived Time Location / / Volume Laterality 03/02/2008 5:06 PM CDT Radha Schwartz MD LAB_1 Performing Organization Address [facility] Phon e Number HP CONVERSION ALT (SGPT) (03/02/2008 5:06 PM CDT) [facility] gist Method Time Signature Alanine 21 4 - 55 HP CONVERSION Aminotransferase U/L Specimen (Source) Anatomical Collection Method Collection Time Re ceived Time Location / / Volume Laterality 03/02/2008 5:06 PM CDT Radha Schwartz MD LAB_1 Performing Organization Address City/[facility]/ZIP [facility] Phon e Number HP CONVERSION AST (03/02/2008 5:06 PM CDT) [facility] gist Method Time Signature Aspartate 17 0 - 45 HP CONVERSION Aminotransferase U/L Specimen (Source) Anatomical Collection Method Collection Time Re ceived Time Location / / Volume Laterality 03/02/2008 5:06 PM CDT Radha Schwartz MD LAB_1 Performing Organization Address City/[facility] Phon e Number HP CONVERSION Bilirubin, Total (03/02/2008 5:06 PM CDT) athologist Signature Bilirubin Total 0.2 0.2 - 1.2 HP CONVERSION mg/dL Specimen (Source) Anatomical Collection Method Collection Time Re ceived Time Location / / Volume Laterality 03/02/2008 5:06 PM CDT Radha Schwartz MD LAB_1 Performing Organization Address City/State/ZIP Code Phon e Number HP CONVERSION BUN (03/02/2008 5:06 PM CDT) athologist Signature Blood Urea 19 5 - 26 HP CONVERSION Nitrogen mg/dL Specimen (Source) Anatomical Collection Method Collection Time Re ceived Time Location / / Volume Laterality 03/02/2008 5:06 PM CDT Radha Schwartz MD LAB_1 Performing Organization Address City/[facility]/ZIP Code Phon e Number HP CONVERSION Creatinine / GFR (03/02/2008 5:06 PM CDT) athologist Signature Creatinine 0.7 0.4 - 1.3 HP CONVERSION Serum mg/dL Est GFR >60 >60 HP CONVERSION Am Comment: -[place]ander and Hja-Aylzhfv-Eapbzvb n reference range units: mL/min/1.73m2 Normal>60, moderate decrease 30 - 59, se nay decrease 15 - 29, renal failure <15 mL/min/1.73 m2 Est GFR Non-Afr Am >60 >60 HP CONVERSI ON Specimen (Source) Anatomical Collection Method Collection Time Re ceived Time Location / / Volume Laterality 03/02/2008 5:06 PM CDT Radha Schwartz MD LAB_1 Performing Organization Address City/State/ZIP Code Phon e Number HP CONVERSION GT (Gamma GT) (03/02/2008 5:06 PM CDT) athologist Signature Gamma-Glutamyl 23 1 - 48 U/L HP CONVERSION Transferase Specimen (Source) Anatomical Collection Method Collection Time Re ceived Time Location / / Volume Laterality 03/02/2008 5:06 PM CDT Radha Schwartz MD LAB_1 Performing Organization Address City/State/ZIP Code Phon e Number HP CONVERSION Glucose (03/02/2008 5:06 PM CDT) athologist Signature Length Of Fast 5.0 Hours HP CONVERSION Comment: The fasting period is suboptima l, less than 8 hours. Lab Glucose 88 60 - 100 mg/dL HP CONVERSION Specimen (Source) Anatomical Collection Method Collection Time Re ceived Time Location / / Volume Laterality 03/02/2008 5:06 PM CDT Radha Schwartz MD LAB_1 Performing Organization Address City/[facility] Code Phon e Number HP CONVERSION Electrolytes (NA, K, CL, Bicarb) (03/02/2008 5:06 PM CDT) athologist Signature Sodium 139 137 - 147 HP CONVERSION mEq/L Potassium 4.4 3.5 - 5.2 HP CONVERSION mEq/L Chloride 107 98 - 110 HP CONVERSION mEq/L Bicarbonate 27 23 - 33 HP CONVERSION mmol/L Specimen (Source) Anatomical Collection Method Collection Time Re ceived Time Location / / Volume Laterality 03/02/2008 5:06 PM CDT Radha Schwartz MD LAB_1 Performing Organization Address City/[facility] Code Phon e Number HP CONVERSION JOHAN Screen (03/02/2008 5:06 PM CDT) Analysis Performed At [facility] Time Signature Anti-Nuclear Negative Negative HP CONVERSION Ab Specimen (Source) Anatomical Collection Method Collection Time Re ceived Time Location / / Volume Laterality 03/02/2008 5:06 PM CDT Radha Schwartz MD LAB_1 Performing Organization Address City/[facility] Code Phon e Number HP CONVERSION Calcium (03/02/2008 5:06 PM CDT) athologist Signature Calcium 9.5 8.5 - 10.5 HP CONVERSION mg/dL Specimen (Source) Anatomical Collection Method Collection Time Re ceived Time Location / / Volume Laterality 03/02/2008 5:06 PM CDT Radha Schwartz MD LAB_1 Performing Organization Address City/[facility] Code Phon e Number HP CONVERSION Ssa (Camilo) Igg Antibody (03/02/2008 4:33 PM CDT) athologist Signature SSA (CAMILO) IgG 3 <40 AU/mL HP CONVERSION Ab Comment: REFERENCE INTERVALS: SSA (Ro) (CAMILO) Ab, IgG ?29 AU/mL or Less............... Ne gative ?30 - 40 AU/mL ................. Eq uivocal ?41 AU/mL or Greater ........... Po sitive SSA (Ro) antibody is seen in 70-75% of S jogren syndrome cases, 30-40% of systemic lupus erythema tosus, and 5-10% of progressive systemic sclerosis. Performed at [place] [address] Specimen (Source) Anatomical Collection Method Collection Time Re ceived Time Location / / Volume Laterality 03/02/2008 4:33 PM CDT Radha Schwartz MD LAB_1 Performing Organization Address [facility] Phon e Number HP CONVERSION Anti SS-B (La) (03/02/2008 4:33 PM CDT) athologist Signature SSB (CAMILO) IgG 0 <40 AU/mL HP CONVERSION Ab Comment: REFERENCE INTERVALS: SSB (La) (CAMILO) Ab, IgG ?29 AU/mL or Less............... Ne gative ?30 - 40 AU/mL ................. Eq uivocal ?41 AU/mL or Greater ........... Po sitive SSB (La) antibody is seen in 50-60% of S jogren syndrome cases and is specific if it is the only CAMILO antibody present. Fifteen-25% of systemic lupus e rythematosus and 5-10% of progressive systemic sclerosis also have this antibody. Performed at [place] [address] Specimen (Source) Anatomical Collection Method Collection Time Re ceived Time Location / / Volume Laterality 03/02/2008 4:33 PM CDT Radha Schwartz MD LAB_1 Performing Organization Address [facility] Phon e Number HP CONVERSION Angiotensin Converting Enzyme-Serum (03/02/2008 4:33 PM CDT) athologist Signature Angiotensin 37 9 - 67 U/L HP CONVERSION Converting Enzyme, Serum Comment: TEST INFORMATION: Angiotensin Converting Enzyme For related information, see [email or web address] Performed at [facility] [address] [place] [address] 8 Specimen (Source) Anatomical Collection Method Collection Time Re ceived Time Location / / Volume Laterality 03/02/2008 4:33 PM CDT Radha Schwartz MD LAB_1 Performing Organization Address City/State/ZIP Code Phon e Number HP CONVERSION documented in this encounter Visit Diagnoses Not on filedocumented in this encounter Care Teams Manager Protein Relationship Specialty Start Date End Date Munira Combs PA-C PCP - General 09/25/10 03/14/15 [address] [place] [address] documented as of this encounter
--- OUTSIDE RECORDS SUMMARY | 2022-03-20 16:19 | XMS_ITS | Encounter Summary ---
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 documented as of this encounter Progress Notes Conversion, [facility] - 02/10/2008 11:12 AM CDT Phone Note filed by [facility] Conversion at 10/13/10349 Author: [facility] Conversion Service: (none) Author Type: (none) Filed: 10/13/10349 Note Time: 02/10/08 1112 Status: Signed Vacation Sales Advisor: [facility] Conversion MESSAGE TO CARE TEAM NAME OF CALLER:[facility] NAME OF CLINICIAN: MESSAGE:REQ REFILL PIROXICAM 20MG CAPSULE TAKE ONE CAPSULE BY MOUTH EVERY DAY WITH FOOD FOR ARTHRITIS #30 LAST FILL 02/06/08 PHARMACY NAME:[facility] PHONE #:[phone] FAX [phone] CITY:[place] CALL BACK PHONE OR CELL PHONE: BEST TIME TO CALL BACK: IS IT OK TO LEAVE A CONFIDENTIAL MESSAGE ON THIS VOICEMAIL? *ECODE~PNMSG Created on 10Feb2008 11:12am by KATERINA LOMAX On 11Feb2008 4:50pm JOVAN ERNST wrote: OK TO REFILL PIROXICAM, 20 MG PO DAILY, 4 REFILLS. MKT Acknowledged by JOVAN ERNST on 4:50pm On 12Feb2008 10:24am KATERINA LOMAX wrote: PHARMACY PHONED WITH ' RESPONSE. Acknowledged by KATERINA LOMAX on 10:24am VINER MECHANIC documented in this encounter Plan of Treatment Upcoming Encounters Date Type Specialty Care Team Description 05/05/2022 Appointment Chemo Therapy/Infusion Services 09/15/2022 Telemedicine Gastroenterology Eusebio Haines MD [address] [place] [address] (Wo rk) documented as of this encounter Visit Diagnoses Not on filedocumented in this encounter Care Teams Certified Dietary Manager Relationship Specialty Start Date End Date Munira Combs PA-C PCP - General 09/25/10 03/14/15 [address] [place], [place] [id number] documented as of this encounter
--- OUTSIDE RECORDS SUMMARY | 2022-03-20 16:19 | XMS_ITS | Encounter Summary ---
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 Comment:- Pharmacy Seq #:-Print to P.N.Pharmacy Pharmacy Name:-P.N. Pharmacy Street or City:-[facility] Clinician Name:-[facility] Name/Strength:-Dicyclomine 20mg tabs. Sig: Dose/Route/Freq:-Take 1 tab 4 times a day. Quantity & Last Fill:-120 09/02/07 Created on 06Nov2007 10:58am by ANGIE ALVARENGA J On 06Nov2007 11:12am SHERIE BAEZ wrote: Sent. Acknowledged by SHERIE BAEZ on 11:12am ICAL DATA PROGRAMMER documented in this encounter Plan of Treatment Upcoming Encounters Date Type Specialty Care Team Description 05/05/2022 Appointment Chemo Therapy/Infusion Services 09/15/2022 Telemedicine Gastroenterology Eusebio Haines MD [address] [place] [address] (Wo rk) documented as of this encounter Visit Diagnoses Not on filedocumented in this encounter Care Teams Trial Court Judge Relationship Specialty Start Date End Date Sherie Baez PA-C PCP - General 09/25/10 03/14/15 [address] [place], [place] [id number] documented as of this encounter
--- OUTSIDE RECORDS SUMMARY | 2022-03-20 16:19 | XMS_ITS | Encounter Summary ---
:1975 Author Organization [employer] Address [address] [place] [address] Care Team Providers Name Role Phone Munira Combs PA-C Primary Care Provider Reason for Visit Reason Comments Other Encounter Details Date Type Department Care Team Description 02/28/2008 Telephone [employer], Message Other [address] [place] [address] Social History Tobacco Use Types Packs/Day Years Used Date Smoking Tobacco: Never Assessed Sex Assigned at Date Recorded Female 05/09/2021 7:19 PM CREDIT UNION EXAMINER documented as of this encounter Progress Notes Rafita Sanchez LPN - 02/28/2008 4:10 PM CDT Phone Note filed by Rafita Cannon at 10/13/10522 Author: Rafita Cannon Service: (none) Author Type: (none) Filed: 10/13/10522 Note Time: 02/28/08 1610 Status: Signed Pmo Lead: [facility] Conversion Radiologist calling with an abnormal MRI/MRA on Idania please read. Created on 28Feb2008 4:10pm by RAFITA CANNON On 28Feb2008 5:16pm LAYA OLEA wrote: Results discussed with Idania. Advise CRP and ESR levels. If normal, consult neurology. Acknowledged by LAYA OLEA on 5Sep08 5:16pm On [id number] 5:18pm SKYE SIMON wrote: Lab order completed. IT UNION EXAMINER documented in this encounter Plan of Treatment Upcoming Encounters Date Type Specialty Care Team Description 05/05/2022 Appointment Chemo Therapy/Infusion Services 09/15/2022 Telemedicine Gastroenterology Eusebio Haines MD [address] [place] [address] (Wo rk) documented as of this encounter Visit Diagnoses Not on filedocumented in this encounter Care Teams Multiple Sclerosis Nurse Relationship Specialty Start Date End Date Munira Combs PA-C PCP - General 09/25/10 03/14/15 [address] [place] [address] documented as of this encounter
--- OUTSIDE RECORDS SUMMARY | 2022-03-20 16:19 | XMS_ITS | Encounter Summary ---
:1975 Author Organization [employer] Address [address], [place] [address] Care Team Providers Name Role Phone Sherie Baez PA-C Primary Care Provider Reason for Visit Reason Comments Other Encounter Details Date Type Department Care Team Description 02/06/2008 Telephone [facility] Sherie Falcon PA-C Other [address] [employer] [address] [address] [place] [address] [phone] (Wo rk) Social History Tobacco Use Types Packs/Day Years Used Date Smoking Tobacco: Never Assessed Sex Assigned at Date Recorded Female 05/09/2021 7:19 PM CHART SNATCHER documented as of this encounter [facility], Message - 02/06/2008 2:31 PM CDT Phone Note filed by [facility] at 10/13/10337 Author: [facility] Service: (none) Author Type: (none) Filed: 10/13/10337 Note Time: 02/06/08 1431 Status: Signed Cuff Stitcher: [facility] Prescription Refill Please provide enough refills to last until patient's next visit. Comment:-NOT ON ACTIVE MED LIST Pharmacy Seq #:-PRINT TO [facility] Pharmacy Name:-[facility] Street or City:- [place] Clinician Name:-[facility] Name/Strength:-PHENTERMINE 15MG CAP Sig: Dose/Route/Freq:-TAKE ONE CAP DAILY Quantity & Last Fill:-30 04/13/06 Created on 06Feb2008 2:31pm by CATIE AVILEZ On 06Feb2008 3:26pm SHERIE BAEZ wrote: Needs appt to discuss. Acknowledged by SHERIE BAEZ on 3:26pm T SNATCHER documented in this encounter Plan of Treatment Upcoming Encounters Date Type Specialty Care Team Description 05/05/2022 Appointment Chemo Therapy/Infusion Services 09/15/2022 Telemedicine Gastroenterology Eusebio Haines MD [address] [place] [address] (Wo rk) documented as of this encounter Visit Diagnoses Not on filedocumented in this encounter Care Teams Wastewater Engineer Relationship Specialty Start Date End Date Sherie Baez PA-C PCP - General 09/25/10 03/14/15 [address] [place], [place] [phone] documented as of this encounter
--- OUTSIDE RECORDS SUMMARY | 2022-03-20 16:19 | XMS_ITS | Encounter Summary ---
:1975 Author Organization [email or web address] Address [address] [place] [address] Care Team Providers Name Role Phone Munira Combs PA-C Primary Care Provider Reason for Visit Reason Comments Other Encounter Details Date Type Department Care Team Description [facility] [address] [employer] [place], [place] [phone] Social History Tobacco Use Types Packs/Day Years Used Date Smoking Tobacco: Never Assessed Sex Assigned at Date Recorded Female 05/09/2021 7:19 PM RAW MATERIAL HANDLER documented as of this encounter Progress Notes Rafita Sanchez LPN - 03/02/2008 11:58 AM CDT Phone Note filed by Rafita Cannon at 10/13/10527 Author: Rafita Cannon Service: (none) Author Type: (none) Filed: 10/13/10 0528 Note Time: 03/02/081157 Status: Signed Waterproofer Helper: Tam Conversion Lab work back on pt. Created on 02Mar2008 11:58am by RAFITA CANNON On 02Mar2008 4:59pm LAYA OLEA wrote: Labs reviewed. Needs JOHAN, CBC, lytes, BUN, creatinine, AST, ALT, alk phos, t. bili, GGT, UA, glucose for further evaluation of abnormal brain MRI. Please advise patient and have labs/UA done. Also, needs neurology consult OSMANY for further evaluation of abnormal MRA. Please help patient schedule. If unable to be seen this week, please advise me. Acknowledged by LAYA OLEA on 4:59pm On 02Mar2008 5:09pm RAFITA CANNON wrote: Pt sent to lab and given neorology number. Acknowledged by RAFITA CANNON on 5:09pm MATERIAL HANDLER documented in this encounter Plan of Treatment Upcoming Encounters Date Type Specialty Care Team Description 05/05/2022 Appointment Chemo Therapy/Infusion Services 09/15/2022 Telemedicine Gastroenterology Eusebio Haines MD [address] [place] [address] (Wo rk) documented as of this encounter Visit Diagnoses Not on filedocumented in this encounter Care Teams Assistant Auto Center Manager Relationship Specialty Start Date End Date Munira Combs PA-C PCP - General 09/25/10 03/14/15 [address] [place] [address] documented as of this encounter
--- OUTSIDE RECORDS SUMMARY | 2022-03-20 16:19 | XMS_ITS | Encounter Summary ---
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 dicyclomine (AKA BENTYL) Take 1 capsule by 120 5 03/25 20 MG tablet mouth 4 times daily. dicyclomine (AKA BENTYL) Take 1 capsule by 120 0 /06/2006 20 MG tablet mouth 4 times daily. dicyclomine (AKA BENTYL) Take 1 capsule by 120 2 060 11/2006 20 MG tablet mouth 4 times daily. dicyclomine (AKA BENTYL) Take 1 capsule by 120 6 01/23 20 MG tablet mouth 4 times daily. dicyclomine (AKA BENTYL) Take 1 capsule by 30 0 01/23 20 MG tablet mouth 4 times daily. LW Addl Instr:Must follow up with me as scheduled for additional refills. CATHY Combs PA-C dicyclomine (AKA BENTYL) Take 1 capsule by 120 0 /2 01/2006 20 MG tablet mouth 4 times daily. LW Addl Instr:No further refills will be approved until follow-up appointment is scheduled. Dr. Bazzi dicyclomine (AKA BENTYL) Take 1 capsule by 120 0 06/1 07/2005 20 MG tablet mouth 4 times daily. LW Comment:NEEDS APPT LW Addl Instr:Indicated for: Irritable Bowel Syndrome dicyclomine (AKA BENTYL) Take 1 capsule by 120 1 08/24 20 MG tablet mouth 4 times daily. LW Comment:Renewal Request from pharmacy LW Addl Instr:Indicated for: Irritable Bowel Syndrome dicyclomine (AKA BENTYL) Take 1 capsule by 90 3 07/27 20 MG tablet mouth 4 times daily. LW Addl Instr:Indicated for: Irritable Bowel Syndrome norethindrone-eth Take 1 tablet by 84 0 02/07/2008 estradiol (AKA NORINYL, mouth daily (every 24 ORTHO NOVUM) 1-35 MG-MCG hours). LW tablet Comment:Mar 2008 appt due LW Addl Instr:Patient is to take active (first 21) pills daily, then discard the inactive pills (last 7), and immediately begin the active pills in the next package. She will be taking the pills in a continuous fashion. Dr. Bazzi norethicollinronhoda-eth Take 1 tablet by 84 4 04/04/2007 estradiol (AKA NORINYL, mouth daily (every 24 ORTHO NOVUM) 1-35 MG-MCG hours). LW Addl tablet Instr:Patient is to take active (first 21) pills daily, then discard the inactive pills (last 7), and immediately begin the active pills in the next package. She will be taking the pills in a continuous fashion. Dr. Bazzi norethindrone-eth Take 1 tablet by 28 0 03/15/2007 estradiol (AKA NORINYL, mouth daily (every 24 ORTHO NOVUM) 1-35 MG-MCG hours). LW Addl tablet Instr:Patient is to take active (first 21) pills daily, then discard the inactive pills (last 7), and immediately begin the active pills in the next package. She will be taking the pills in a continuous fashion. Dr. Jluis cortez Take 1 tablet by 28 0 01/21/2007 estradiol (AKA NORINYL, mouth daily (every 24 ORTHO NOVUM) 1-35 MG-MCG hours). LW Addl tablet Instr:Patient is to take active (first 21) pills daily, then discard the inactive pills (last 7), and immediately begin the active pills in the next package. She will be taking the pills in a continuous fashion. Dr. Jluis cortez Take 1 tablet by 112 3 02/08/2006 estradiol (AKA NORINYL, mouth daily (every 24 ORTHO NOVUM) 1-35 MG-MCG hours). LW Addl tablet Instr:Patient is to take active (first 21) pills daily, then discard the inactive pills (last 7), and immediately begin the active pills in the next package. She will be taking the pills in a continuous fashion. Dr. Jluis cortez Take 1 tablet by 112 3 07/25/2005 estradiol (AKA NORINYL, mouth daily (every 24 ORTHO NOVUM) 1-35 MG-MCG hours). LW Addl tablet Instr:Patient is to take active (first 21) pills daily, then discard the inactive pills (last 7), and immediately begin the active pills in the next package. She will be taking the pills in a continuous fashion. Dr. Bazzi adapalene (LIZET DIFFERPETER) Apply 1 Application 45 0 03/13/2008 0.1 % gel topically nightly. LW Addl Instr:Apply to clean dry skin 1 hour before bedtime. Indicated for: Acne amitriptyline (AKA Take 1-2 tablets by 60 1 02/07/20 08 07/04/2010 ELAVIL) 25 MG tablet mouth nightly. LW Comment:Mar 2008 wong amitriptyline (AKA Take 1-2 tablets by 60 6 09/02/19 08 07/04/2010 ELAVIL) 25 MG tablet mouth nightly. LW Comment:Mar 2008 wong amitriptyline (AKA Take 1-2 tablets by 90 3 04/04/20 07 07/04/2010 ELAVIL) 25 MG tablet mouth nightly. amitriptyline (AKA Take 1-2 tablets by 60 0 03/15/20 07 07/04/2010 ELAVIL) 25 MG tablet mouth nightly. amitriptyline (AKA Take 1-2 tablets by 60 11 02/09/20 06 07/04/2010 ELAVIL) 25 MG tablet mouth nightly. amitriptyline (AKA Take 1-2 tablets by 60 3 05/08/20 05 07/04/2010 ELAVIL) 25 MG tablet mouth nightly. amitriptyline (AKA Take 1-2 tablets by 60 3 05/08/20 05 07/04/2010 ELAVIL) 25 MG tablet mouth nightly. UNKNOWN MEDICATION Indications: PN: 0 02/26/2008 09/05/2010 UNKNOWN MEDICATION Indications: PN: 0 08/06/2007 09/05/2010 UNKNOWN MEDICATION Indications: PN: 0 08/06/2007 09/05/2010 UNKNOWN MEDICATION Indications: PN: 0 07/25/2007 09/05/2010 UNKNOWN MEDICATION Indications: PN: 0 04/04/2007 09/05/2010 UNKNOWN MEDICATION Indications: PN: 0 03/18/2007 09/05/2010 UNKNOWN MEDICATION Indications: PN: 0 07/02/2006 09/05/2010 UNKNOWN MEDICATION Indications: PN: 0 02/08/2006 09/05/2010 UNKNOWN MEDICATION Indications: PN: 0 12/13/2005 09/05/2010 UNKNOWN MEDICATION Indications: PN: 0 09/20/2005 09/05/2010 UNKNOWN MEDICATION Indications: PN: 0 06/08/2005 09/05/2010 UNKNOWN MEDICATION Indications: PN: 0 12/22/2004 09/05/2010 UNKNOWN MEDICATION Indications: PN: 0 11/22/2004 09/05/2010 Varenicline Tartrate LW Addl Instr:Take 53 0 007 03/13/2008 (CHANTIX STARTING MONTH 0.5 mg orally once MARGARET) 0.5 MG X 11 & 1 MG daily for days 1 X 42 tablet through 3, then 0.5 mg twice daily for days 4 through 7, then 1 mg twice daily for the duration of treatment. Indicated for: Smoking Cessation documented as of this encounter Plan of Treatment Upcoming Encounters Date Type Specialty Care Team Description 05/05/2022 Appointment Chemo Therapy/Infusion Services 09/15/2022 Telemedicine Gastroenterology Eusebio Haines MD [address] [place] [address] (Wo rk) documented as of this encounter Procedures Procedure Name Priority Date/Time Associated Diagnosis Comme nts HMR BRAIN W/WO IV Routine 02/28/2008 6:54 AM Resu lts for this CONT CDT procedure are i n the results section. HMR ANGIO HEAD WO Routine 02/28/2008 6:53 AM Resu lts for this IV CONT CDT procedure are i n the results section. documented in this encounter Results HMR Brain W/WO IV Cont (02/28/2008 6:54 AM CDT) Anatomical Region Laterality Modality Head Other Specimen (Source) Anatomical Location Collection Method / Collectio n Time Received Time / Laterality Volume Impressions 02/28/2008 6:54 AM CDT : ??Study mildly degraded by motion artifact. ??Several punctate nonspecific, nonenhancing T2 an d FLAIR-weighted hyperintensities involving the frontal a nd parietal lobe white matter bilaterally. ??Diagnostic considerations would include postischemic, posttraumatic, postinflammatory, and pos tinfectious etiologies. ??No evidence for abnormal enhancement, acute infarction or corpus callosal signal abnormality. ??Please re star to report for concurrent MR angiogram of the brain. [facility]/ ??[id number] Dictating LYLA NEWMAN RADIOLOGIST Narrative 02/28/2008 6:54 AM CDT CLINICAL HISTORY: ??Headache. ??Head injury. TECHNICAL DATA: ??Tumor protocol. FINDINGS: ??Ventricles, sulci and cister ns are of normal size and configuration. ??Several punctate scatte red nonspecific, nonenhancing T2 and FLAIR-weighted hyperintensities a re present within the frontal and parietal lobe deep white matter bila terally. ??No evidence for intracranial mass, mass effect, abnormal enhancement, acute infarction, intracranial signal, structu ral, or flow void abnormality. ??Orbits, mastoid air cells , sella, craniocervical junction unremarkable. Procedure Note Lyla Alba MD - 08/25/2016Formattin g of this note might be different from the original. CLINICAL HISTORY: Headache. Head injury. TECHNICAL DATA: Tumor protocol. FINDINGS: Ventricles, sulci and cisterns are of normal size and configuration. Several punctate scattere d nonspecific, nonenhancing T2 and FLAIR-weighted hyperintensities a re present within the frontal and parietal lobe deep white matter bila terally. No evidence for intracranial mass, mass effect, abnormal enhancement, acute infarction, intracranial signal, structu ral, or flow void abnormality. Orbits, mastoid air cells, sella, craniocervical junction unremarkable. IMPRESSION : Study mildly degraded by motion artifa ct. Several punctate nonspecific, nonenhancing T2 an d FLAIR-weighted hyperintensities involving the frontal a nd parietal lobe white matter bilaterally. Diagnostic considerations w ould include postischemic, posttraumatic, postinflammatory, and pos tinfectious etiologies. No evidence for abnormal enhancement, acute infarction or corpus callosal signal abnormality. Please refe r to report for concurrent MR angiogram of the brain. [facility]/ [id number] Dictating LYLA NEWMAN RADIOLOGIST Radha Schwartz MD RAD MRI HMR Angio Head WO IV Cont (02/28/2008 6:53 AM CDT) Anatomical Region Laterality Modality Head Other Specimen (Source) Anatomical Location Collection Method / Collectio n Time Received Time / Laterality Volume Impressions 02/28/2008 6:53 AM CDT : ??Multiple intracranial stenoses, as detailed above. Diagnostic considerations include CORRECTIVE THERAPIST va sculitis, vasospasm, and premature atherosclerosis. ??Question an y history of hypertension or diabetes. ??Recommend correlation to C-r eactive protein and sedimentation rate. Findings called to Dr. Radha Schwartz's Mira avina se, of the [facility]. [facility]/ [id number] Dictating LYLA NEWMAN RADIOLOGIST Narrative 02/28/2008 6:53 AM CDT CLINICAL HISTORY: ??Headache, head injury. TECHNICAL DATA: ??3-D [id number] MR angiography of the [place] without contrast. FINDINGS: ??No prior [facility] candace rison studies. Internal Carotid Arteries: ??Mild to mod erate stenosis of the supraclinoid left internal carotid arter y. Anterior Cerebral Arteries: ??Moderate s hort-segment stenosis distal left A1 segment and moderate to severe s tenosis of the mid left A2 segment. ??Mild stenoses of the A3 segme nts bilaterally. Middle Cerebral Arteries: ??Severe short -segment stenosis of the proximal posteriorly oriented right M2 s egment. ??Mild additional stenoses of the right M2 and right M3 se gments. ??Mild stenosis left M2 segments. Posterior Cerebral Arteries: ??Mild sten oses of the left P3 segments. Vertebrobasilar System: ??Mild stenosis distal basilar artery. Procedure Note Lyla Alba MD - 08/25/2016Formattin g of this note might be different from the original. CLINICAL HISTORY: Headache, head injury. TECHNICAL DATA: 3-D [id number] MR an giography of the [place] without contrast. FINDINGS: No prior [facility] son studies. Internal Carotid Arteries: Mild to moder ate stenosis of the supraclinoid left internal carotid arter y. Anterior Cerebral Arteries: Moderate georges rt-segment stenosis distal left A1 segment and moderate to severe s tenosis of the mid left A2 segment. Mild stenoses of the A3 segment s bilaterally. Middle Cerebral Arteries: Severe short-s egment stenosis of the proximal posteriorly oriented right M2 s egment. Mild additional stenoses of the right M2 and right M3 se gments. Mild stenosis left M2 segments. Posterior Cerebral Arteries: Mild stenos es of the left P3 segments. Vertebrobasilar System: Mild stenosis di stal basilar artery. IMPRESSION : Multiple intracranial stenoses, as det [place] above. Diagnostic considerations include CORRECTIVE THERAPIST va sculitis, vasospasm, and premature atherosclerosis. Question any history of hypertension or diabetes. Recommend correlation to C-demarcus ctive protein and sedimentation rate. Findings called to Dr. Radha Schwartz's kailyn seMira, of the [facility]. [facility]/ [id number] Dictating LYLA NEWMAN RADIOLOGIST Radha Schwartz MD RAD MRI documented in this encounter Visit Diagnoses Not on filedocumented in this encounter Care Teams Social Media Content Specialist Relationship Specialty Start Date End Date Munira Combs PA-C PCP - General 06/30/04 09/24/10 [address] [place] [address] documented as of this encounter
--- OUTSIDE RECORDS SUMMARY | 2022-03-20 16:19 | XMS_ITS | Encounter Summary ---
:1975 Author Organization [employer] Address [address] [address] Care Team Providers Name Role Phone Sherie Baez PA-C Primary Care Provider Reason for Visit Reason Comments Other Encounter Details Date Type Department Care Team Description 10/24/2007 Telephone [facility] Sherie Falcon PA-C Other [address] [employer] 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 Comment:- Pharmacy Seq #:-print to [facility] Name:-[facility] Street or City:-[place] Clinician Name:-A Strong Drug Name/Strength:-Differin 0.1% Gel Sig: Dose/Route/Freq:-apply topically to clean dry skin 1 hr before bedtime Quantity & Last Fill:-45 06/10/07 Created on 24Oct2007 1:32pm by CATIE AVILEZ On 24Oct2007 2:47pm SHERIE BAEZ wrote: Sent. Acknowledged by SHERIE BAEZ on 2:47pm APPLIER documented in this encounter Plan of Treatment Upcoming Encounters Date Type Specialty Care Team Description 05/05/2022 Appointment Chemo Therapy/Infusion Services 09/15/2022 Telemedicine Gastroenterology Eusebio Haines MD [address] [place] [address] (Wo rk) documented as of this encounter Visit Diagnoses Not on filedocumented in this encounter Care Teams Oven Unloader Relationship Specialty Start Date End Date Sherie Baez PAZitaC PCP - General 09/25/10 03/14/15 [address] [place] [address] documented as of this encounter
--- OUTSIDE RECORDS SUMMARY | 2022-03-20 16:19 | XMS_ITS | Encounter Summary ---
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 ESR Routine 02/28/2008 5:25 PM Results f or this CDT procedure are i n the results section. documented in this encounter Results (ABNORMAL) C-Reactive Protein (02/28/2008 5:25 PM CDT) P athologist Signature CRP 1.4 (H) 0.0 - 0.9 HP CONVERSION mg/dL Specimen (Source) Anatomical Collection Method Collection Time Re ceived Time Location / / Volume Laterality 02/28/2008 5:25 PM CDT Radha Schwartz MD LAB_1 Performing Organization Address [facility]/ZIP Code Phon e Number HP CONVERSION ESR (02/28/2008 5:25 PM CDT) Patholo gist Method Time Signature Sedimentation Rate 14 0 - 20 HP CONVERSI ON mm/Hr Specimen (Source) Anatomical Collection Method Collection Time Re ceived Time Location / / Volume Laterality 02/28/2008 5:25 PM CDT Radha Schwartz MD LAB_1 Performing Organization Address [facility] Phon e Number HP CONVERSION documented in this encounter Visit Diagnoses Not on filedocumented in this encounter Care Teams Admissions Supervisor Relationship Specialty Start Date End Date Munira Combs PA-C PCP - General 09/25/10 03/14/15 [address] [place] [address] documented as of this encounter
--- OUTSIDE RECORDS SUMMARY | 2022-03-20 16:19 | XMS_ITS | Encounter Summary ---
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 Comment:- Pharmacy Seq #:-print to [facility] Pharmacy Name:-[facility] Street or City:-[place] Clinician Name:-Chrissy Combs Drug Name/Strength:-Amitriptyline HCL 25MG tab Sig: Dose/Route/Freq:-take 1-2 tabs every night at bedtime Quantity & Last Fill:-90 09/02/07 Created on 02Sep2007 2:50pm by CATIE AVILEZ On 02Sep2007 5:31pm SMITH NORTH wrote: Renewed medication per medication refill protocol. SSMENT ANALYST documented in this encounter Plan of Treatment Upcoming Encounters Date Type Specialty Care Team Description 05/05/2022 Appointment Chemo Therapy/Infusion Services 09/15/2022 Telemedicine Gastroenterology Eusebio Haines MD [address] [place] [address] (Wo rk) documented as of this encounter Visit Diagnoses Not on filedocumented in this encounter Care Teams Compensation Consultant Relationship Specialty Start Date End Date Munira Combs PA-C PCP - General 09/25/10 03/14/15 [address] [place] [address] documented as of this encounter
--- OUTSIDE RECORDS SUMMARY | 2022-03-20 16:20 | XMS_ITS | Encounter Summary ---
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 Comment:- Pharmacy Seq #:- Pharmacy Name:-[facility] fax [phone] phone [phone] or City:- Clinician Name:-Jluis Drug Name/Strength:-Dicyclomine 20mg tab Sig:-Take one tab 4 times a day Quantity:-120 Last Fill:-12-04-05 Created on 20Dec2005 2:23pm by IGNACIO MARTÍNEZ On 20Dec2005 3:07pm ILYA MENDOZA wrote: Prescription refilled. Needs follow-up appointment. Dr. Mendoza Acknowledged by ILYA MENDOZA on 3:07pm OM FEED CORN OPERATOR documented in this encounter Plan of Treatment Upcoming Encounters Date Type Specialty Care Team Description 05/05/2022 Appointment Chemo Therapy/Infusion Services 09/15/2022 Telemedicine Gastroenterology uEsebio Haines MD [address] [place] [address] (Wo rk) documented as of this encounter Visit Diagnoses Not on filedocumented in this encounter Care Teams Public Defender Relationship Specialty Start Date End Date Munira Combs PA-C PCP - General 09/25/10 03/14/15 [address] [place] [address] documented as of this encounter
--- OUTSIDE RECORDS SUMMARY | 2022-03-20 16:20 | XMS_ITS | Encounter Summary ---
:1975 Author Organization [employer] Address [address] [address] Care Team Providers Name Role Phone Munira Combs PA-C Primary Care Provider Encounter Details Date Type Department Care Team Description 08/01/2007 PN Conversion Only [facility] [address] [place], [place] [address] Social History Tobacco Use Types Packs/Day Years Used Date Smoking Tobacco: Never Assessed Sex Assigned at Date Recorded Female 05/09/2021 7:19 PM BENEFITS DIRECTOR documented as of this encounter Plan of Treatment Upcoming Encounters Date Type Specialty Care Team Description 05/05/2022 Appointment Chemo Therapy/Infusion Services 09/15/2022 Telemedicine Gastroenterology Eusebio Haines MD [address] [place], [place] [id number] (Wo rk) documented as of this encounter Procedures Procedure Name Priority Date/Time Associated Diagnosis Comme nts MR ANKLE LT WO IV Routine 08/01/2007 9:46 AM Resu lts for this CONT BENEFITS DIRECTOR procedure are i n the results section. documented in this encounter Results MR Ankle Lt WO IV Cont (08/01/2007 9:46 AM BENEFITS DIRECTOR) Anatomical Region Laterality Modality Lower Extremity, Ankle, Foot, Leg, Skeletal, Foot & Ankle Le ft Other Specimen (Source) Anatomical Location Collection Method / Collectio n Time Received Time / Laterality Volume Impressions 08/01/2007 9:46 AM BENEFITS DIRECTOR : ??Mild soft-tissue thickening at the origin of the deltoid ligament complex anteriorly is likely se condary to previous sprain. No evidence of focal disruption. ??[place] is otherwise negative. [id number]/rr Dictating JOVAN BLUM RADIOLOGIST Narrative 08/01/2007 9:46 AM BENEFITS DIRECTOR FINDINGS: ??Routine MRI of the left ankle was performed. ??No previous studies are available for comparison. Tendons: ??The peroneus longus and brevi s tendons are normal. ??The tibialis posterior, flexor digitorum, an d flexor hallucis longus tendons are normal. ??The tibialis anter ior and the visualized extensor tendons are normal. Ligaments: ??The anterior and posterior talofibular ligaments and the calcaneofibular ligament are normal. ??T he anterior and posterior inferior tibiofibular ligaments are norm al. ??The deltoid ligament complex is intact. ??However, there is s ome mild soft-tissue thickening along the origin of the anter ior aspect of the deltoid ligament complex likely secondary to pre vious sprain. Joints: ??The tibiotalar, talonavicular, calcaneocuboid, and subtalar joints are unremarkable without evidence of focal cartilage defect. The sinus tarsi is normal. ??The talocal caneal ligament is normal. Achilles Tendon/Plantar Fascia: ??The Ac hilles tendon and plantar fascia are normal. ??No significant flui d in the retrocalcaneal bursa. Marrow and Soft Tissues: ??Marrow signal is normal. ??No soft-tissue mass identified. ??There is some mild no nspecific edema in the subcutaneous soft tissues about the medi al and lateral aspects of the ankle. Procedure Note Jovan Michelle MD - 08/25/2016 FINDINGS: Routine MRI of the left ankle was performed. No previous studies are available for comparison. Tendons: The peroneus longus and brevis tendons are normal. The tibialis posterior, flexor digitorum, an d flexor hallucis longus tendons are normal. The tibialis anterio r and the visualized extensor tendons are normal. Ligaments: The anterior and posterior ta lofibular ligaments and the calcaneofibular ligament are normal. The anterior and posterior inferior tibiofibular ligaments are norm al. The deltoid ligament complex is intact. However, there is marbella e mild soft-tissue thickening along the origin of the anter ior aspect of the deltoid ligament complex likely secondary to pre vious sprain. Joints: The tibiotalar, talonavicular, c alcaneocuboid, and subtalar joints are unremarkable without evidence of focal cartilage defect. The sinus tarsi is normal. The talocalca anaya ligament is normal. Achilles Tendon/Plantar Fascia: The Achi lles tendon and plantar fascia are normal. No significant fluid in the retrocalcaneal bursa. Marrow and Soft Tissues: Marrow signal i s normal. No soft-tissue mass identified. There is some mild nons pecific edema in the subcutaneous soft tissues about the medi al and lateral aspects of the ankle. IMPRESSION : Mild soft-tissue thickening at the abdirashid gin of the deltoid ligament complex anteriorly is likely se condary to previous sprain. No evidence of focal disruption. Examina tion is otherwise negative. [id number]/rr Dictating JOVAN BLUM RADIOLOGIST Jovan Soto MD RAD MRI documented in this encounter Visit Diagnoses Not on filedocumented in this encounter Care Teams Cdl Company Driver Relationship Specialty Start Date End Date Munira Combs PA-C PCP - General 09/25/10 03/14/15 [address] [place] [address] documented as of this encounter
--- OUTSIDE RECORDS SUMMARY | 2022-03-20 16:20 | XMS_ITS | Encounter Summary ---
:1975 Author Organization [employer] Address [address] [address] Care Team Providers Name Role Phone Munira Combs PA-C Primary Care Provider Reason for Visit Reason Comments Other Encounter Details Date Type Department Care Team Description 12/05/2005 Telephone [facility] [place], Message Other [address] [place], [place] [address] Social History Tobacco Use Types Packs/Day Years Used Date Smoking Tobacco: Never Assessed Sex Assigned at Date Recorded Female 05/09/2021 7:19 PM TRAINS DISPATCHER SUPERVISOR documented as of this encounter [facility], Message - 12/05/2005 11:35 AM CDT Phone Note filed by Leinentausch at 10/11/10510 Author: Leinent[employer]ch Service: (none) Author Type: (none) Filed: 10/11/10510 Note Time: 12/05/05 1135 Status: Signed Workers Compensation Claims Supervisor: Leinentausch PRESCRIPTION REFILL Please provide enough refills to last until patient's next visit. Comment:- Pharmacy Seq #:-send print to [facility] Pharmacy Name:-[facility] Pharmacy Street or City:-[place] Clinician Name:-Gordon Daniels Drug Name/Strength:-Dicyclomine 20MG tab Sig:-take one tab 4 times daily Quantity:-120 Last Fill:-12/04/05 Created on 05Dec2005 11:35am by CATIE AVILEZ On 05Dec2005 1:47pm CARMEN DANIELS wrote: Declined.pt needs f/u appointment. Acknowledged by CARMEN DANIELS on 1:47pm Acknowledged by DUSTY QUINONES on 2:02pm On 05Dec2005 2:51pm MAE CORTES wrote: In valid numbers Acknowledged by MAE CORTES on 2:51pm NS DISPATCHER SUPERVISOR documented in this encounter Plan of Treatment Upcoming Encounters Date Type Specialty Care Team Description 05/05/2022 Appointment Chemo Therapy/Infusion Services 09/15/2022 Telemedicine Gastroenterology Eusebio Haines MD [address] [place] [address] (Wo rk) documented as of this encounter Visit Diagnoses Not on filedocumented in this encounter Care Teams Precision Honing Machine Operator Relationship Specialty Start Date End Date Munira Combs PA-C PCP - General 09/25/10 03/14/15 [address] [place], [place] [id number] documented as of this encounter
--- OUTSIDE RECORDS SUMMARY | 2022-03-20 16:20 | XMS_ITS | Encounter Summary ---
:1975 Author Organization [email or web address] Address [address] [place] [address] Care Team Providers Name Role Phone Munira Combs PA-C Primary Care Provider Encounter Details Date Type Department Care Team Description 10/02/2005 Office Visit [facility] [address] [place] [address] [place] [address] [phone] Social History Tobacco Use Types Packs/Day Years Used Date Smoking Tobacco: Never Assessed Sex Assigned at Date Recorded Female 05/09/2021 7:19 PM OCEAN TRANSPORTATION INTERMEDIARY documented as of this encounter Progress Notes Nataliya Wooten OA - 10/02/2005 12:01 AM CDT Progress Notes signed by NAKIA Brown at 10/31/05 1547 Author: NAKIA Brown Service: (none) Author Type: ORTHOPAEDIC REFERRAL AGENT Filed: 10/14/10 1048 Note Time: 10/02/05 0001 Status: Signed Inspector Multifocal Lens: NAKIA Brown (ORTHOPAEDIC REFERRAL AGENT) NAME: IGGY DUARTE MR: [id number] ACCT: [id number] VISIT: [id number] DICTATING CLINICIAN: TOSIN Brown JOB: [id number] CLINIC PROGRESS NOTE DATE OF VISIT: 10/02/2005 SUBJECTIVE: : 1975. This 30-year-old female presents into clinic today for follow up on her left wrist. She had surgery on 09/[address] Sukhi Soto. She came into the clinic without the dressings on. She reports little to mild discomfort and is taking no pain medication at this time. OBJECTIVE: The incision sites are healing nicely, no signs of drainage or infection. ASSESSMENT: Status post left wrist cyst excision. PLAN: Suture tails were removed. Postop instructions were given as to care of her incision site and her limitations. She will follow up with Dr. Soto in 2 week's time and was instructed to call the clinic if any problems arise. KJB:[id number] C: 10/09/05 13:34 DOCUMENT: [id number] documented in this encounter Plan of Treatment Upcoming Encounters Date Type Specialty Care Team Description 05/05/2022 Appointment Chemo Therapy/Infusion Services 09/15/2022 Telemedicine Gastroenterology Eusebio Haines MD [address] [place] [address] (Wo rk) documented as of this encounter Visit Diagnoses Not on filedocumented in this encounter Care Teams Medication Reconciliation Technician Relationship Specialty Start Date End Date Munira Combs PA-C PCP - General 09/25/10 03/14/15 [address] [place] [address] documented as of this encounter
--- OUTSIDE RECORDS SUMMARY | 2022-03-20 16:20 | XMS_ITS | Encounter Summary ---
:1975 Author Organization [employer] Address [address] [address] Care Team Providers Name Role Phone Munira Combs PA-C Primary Care Provider Reason for Visit Reason Comments Other Encounter Details Date Type Department Care Team Description 01/21/2007 Telephone [facility], Message Other [address] [place], [place] [address] Social History Tobacco Use Types Packs/Day Years Used Date Smoking Tobacco: Never Assessed Sex Assigned at Date Recorded Female 05/09/2021 7:19 PM DINING ROOM BUSSER documented as of this encounter [facility], Message - 01/21/2007 10:46 AM CDT Phone Note filed by [employer] at 10/12/10115 Author: [employer] Service: (none) Author Type: (none) Filed: 10/12/10115 Note Time: 01/21/07 1046 Status: Signed Technology Lab Teacher: [employer] PRESCRIPTION REFILL Request #1: Please provide enough refills to last until patient's next visit. Comment:- Pharmacy Seq #:-Print [facility] Street or City:-[facility] Clinician Name:-Garret Drug Name/Strength:-Nortrel tabs. Sig: Dose/Route/Freq:-Take 1 tab daily , Quantity & Last Fill:-112 12/25/06 - PRESCRIPTION REFILL Request #2: Comment:- Drug Name/Strength:-Amitriptyline HCL 25mg tabs. Sig: Dose/Route/Freq:-Take 1-2 tabs every night at bedtime. Quantity & Last Fill:-60 12/31/06 Created on 21Jan2007 10:46am by ANGIE ALVARENGA J On 21Jan2007 4:54pm SMITH NORTH wrote: REFILL APPOINTMENT NEEDED Please call patient and schedule appointment within 30 days. Medication has been renewed and faxed to pharmacy for 30 day supply only, per protocol. Comment:-Annual Well exam/Pap due Jan 2007 (after the ). On 23Jan2007 11:46am ELEAZAR BADILLO wrote: Left message refill 30 day supply and advised med refill appointment. Also noted due for Annual / pap. NG ROOM BUSSER documented in this encounter Plan of Treatment Upcoming Encounters Date Type Specialty Care Team Description 05/05/2022 Appointment Chemo Therapy/Infusion Services 09/15/2022 Telemedicine Gastroenterology Eusebio Haines MD [address] [place] [address] (Wo rk) documented as of this encounter Visit Diagnoses Not on filedocumented in this encounter Care Teams Unleavened Dough Mixer Relationship Specialty Start Date End Date Munira Combs PA-C PCP - General 09/25/10 03/14/15 [address] [place], [place] [phone] documented as of this encounter
--- OUTSIDE RECORDS SUMMARY | 2022-03-20 16:20 | XMS_ITS | Encounter Summary ---
:1975 Author Organization [employer] Address [address] [address] Care Team Providers Name Role Phone Munira Combs PA-C Primary Care Provider Encounter Details Date Type Department Care Team Description 02/08/2006 PN Conversion Only [facility] Munira Combs PA-C [address] [address] [place] [address] (Wo rk) Social History Tobacco Use Types Packs/Day Years Used Date Smoking Tobacco: Never Assessed Sex Assigned at Date Recorded Female 05/09/2021 7:19 PM SCIENTIFIC PUBLICATIONS EDITOR documented as of this encounter Plan of Treatment Upcoming Encounters Date Type Specialty Care Team Description 05/05/2022 Appointment Chemo Therapy/Infusion Services 09/15/2022 Telemedicine Gastroenterology Eusebio Haines MD [address] [place], [place] [address] (Wo rk) documented as of this encounter Procedures Procedure Name Priority Date/Time Associated Comments Diagnosis ANATOMICAL PATH Routine 02/08/2006 10:43 Results for this LIQUID BASED AM CDT procedure are i n the results section. THYROID STIMULATING Routine 02/08/2006 10:14 Resu lts for this HORMONE AM CDT procedure are i n the results section. CHOLESTEROL, TOTAL Routine 02/08/2006 10:14 Resul ts for this AND HDL AM CDT procedure are i n the results section. documented in this encounter Results Pap Smear (02/08/2006 10:43 AM CDT) Patholo gist Method Time Signature PAP Smear SEE TEXT No normal HP CONVERSION Liquid Based range Comment: Patient: IGGY DUARTE ? CERVICAL CYTOLOGY REPORT Pathology # ??[id number] ?Date Obtained: [id number] ? Date Received: [id number] CYTOLOGIC IMPRESSION: Negative for intraepithelial lesion or m alignancy. Verified 02/19/06 by: ??KGM ?(electronic signature) ? CELSO TIONAL DATA LMP: CLINICAL HIST LIQUID BASED PAP CERVICAL SPECIMEN ADEQUACY: ?? Satisfactory. ENDOCERVICAL CELLS: ??Present. Specimen (Source) Anatomical Collection Method Collection Time Re ceived Time Location / / Volume Laterality 02/08/2006 10:43 AM CDT Munira Combs PA-C LAB_1 Performing Organization Address City/State/ZIP Code Phon e Number HP CONVERSION Cholesterol, Total and HDL (02/08/2006 10:14 AM CDT) Analysis Performed At Patho logist Time Signature Cholesterol/HDL 4.2 No normal HP CONVERSION Ratio Screen range Cholesterol 184 <200 mg/dL HP CONVERSION HDL Cholesterol 44 40 - 60 HP CONVERSION mg/dL Specimen (Source) Anatomical Collection Method Collection Time Re ceived Time Location / / Volume Laterality 02/08/2006 10:14 AM CDT Munira Combs PA-C LAB_1 Performing Organization Address City/State/ZIP Code Phon e Number HP CONVERSION Thyroid Stimulating Hormone (02/08/2006 10:14 AM CDT) P athologist Signature Thyroid 1.27 0.20 - HP CONVERSION Stimulating 4.50 Hormone uIU/mL Specimen (Source) Anatomical Collection Method Collection Time Re ceived Time Location / / Volume Laterality 02/08/2006 10:14 AM CDT Munira Combs PA-C LAB_1 Performing Organization Address [facility] Phon e Number HP CONVERSION documented in this encounter Visit Diagnoses Not on filedocumented in this encounter Care Teams Finish Molder Relationship Specialty Start Date End Date Munira Combs PA-C PCP - General 09/25/10 03/14/15 [address] [place] [address] documented as of this encounter
--- OUTSIDE RECORDS SUMMARY | 2022-03-20 16:20 | XMS_ITS | Encounter Summary ---
:1975 Author Organization [employer] Address [address] [address] Care Team Providers Name Role Phone Munira Combs PA-C Primary Care Provider Encounter Details Date Type Department Care Team Description 06/22/2006 Office Visit [facility] [address] [place] [address] [place] [address] [phone] Social History Tobacco Use Types Packs/Day Years Used Date Smoking Tobacco: Never Assessed Sex Assigned at Date Recorded Female 05/09/2021 7:19 PM WINCH OPERATOR documented as of this encounter Plan of Treatment Upcoming Encounters Date Type Specialty Care Team Description 05/05/2022 Appointment Chemo Therapy/Infusion Services 09/15/2022 Telemedicine Gastroenterology Eusebio Haines MD [address] [place] [address] (Wo rk) documented as of this encounter Visit Diagnoses Not on filedocumented in this encounter Care Teams Stockholder Relationship Specialty Start Date End Date Munira Combs PA-C PCP - General 09/25/10 03/14/15 [address] [place] [address] documented as of this encounter
--- OUTSIDE RECORDS SUMMARY | 2022-03-20 16:20 | XMS_ITS | Encounter Summary ---
:1975 Author Organization [employer] Address [address] [address] Care Team Providers Name Role Phone Sherie Baez PA-C Primary Care Provider Reason for Visit Reason Comments Other Encounter Details Date Type Department Care Team Description 03/15/2007 Telephone [facility] Sherie Falcon PA-C Other [address] [address] [address] [place] [address] [phone] (Wo rk) Social History Tobacco Use Types Packs/Day Years Used Date Smoking Tobacco: Never Assessed Sex Assigned at Date Recorded Female 05/09/2021 7:19 PM MEDICAL RECORD CLERK documented as of this encounter Progress Yara Castro - 03/15/2007 2:26 PM CDT Phone Note filed by Yara Quintanilla at 10/12/10 5890 Author: Yara Quintanilla Service: (none) Author Type: (none) Filed: 10/12/10 0626 Note Time: 03/15/07 1426 Status: Signed Boat Person: Tma Mcnamara PRESCRIPTION REFILL Request #1: Please provide enough refills to last until patient's next visit. Comment:-PT HAS APPT ON 04/04. Pharmacy Seq #:-SEND PRINT TO [facility] Pharmacy Name:-[facility] Pharmacy Street or City:-[facility] Clinician Name:-NESTOR Drug Name/Strength:-DICYCLOMINE 20MG TAB Sig: Dose/Route/Freq:-TAKE 1 TABLET 4 TIMES DAILY Quantity & Last Fill:-30 11/28/06 - PRESCRIPTION REFILL Request #2: Comment:- Drug Name/Strength:-AMTRIPTYLINE HCL 25MG TAB Sig: Dose/Route/Freq:-TAKE 1-2 TABS EVERY NIGHT AT BEDTIME Quantity & Last Fill:-60 12/31/06 Created on 15Mar2007 2:26pm by YARA QUINTANILLA On 15Mar2007 2:47pm YARA QUINTANILLA wrote: ADDITIONAL PRESCRIPTION REFILL: Drug Name/Strength/Sig:-NORTREL 1/35 TAB, TAKE 1 TAB DAILY, CONTINUOUSLY DIRECTED.PT IS TO TAKE ACTIVE FIRST (21 DAYS)PILLS DAILY, THEN DISCRAD THE INACTIVE PILLS (LAST 7 DAYS) Quantity:-28 Last Refill NA On 15Mar2007 2:48pm YARA QUINTANILLA wrote: ADDITIONAL PRESCRIPTION REFILL: Drug Name/Strength/Sig:-PHENTERMINE 30MG CAPS, TAKE 1 CAPSULE EVERY DAY Quantity:-30 Last Refill NA On 15Mar2007 3:09pm SHERIE BAEZ wrote: Rxs sent x 1 month. Acknowledged by SHERIE BAEZ on 3:09pm CAL RECORD CLERK documented in this encounter Plan of Treatment Upcoming Encounters Date Type Specialty Care Team Description 05/05/2022 Appointment Chemo Therapy/Infusion Services 09/15/2022 Telemedicine Gastroenterology Eusebio Haines MD [address] [place] [address] (Wo rk) documented as of this encounter Visit Diagnoses Not on filedocumented in this encounter Care Teams Shuttle Route Vehicle Operator Relationship Specialty Start Date End Date Sherie Baez PA-C PCP - General 09/25/10 03/14/15 [address] [place] [address] documented as of this encounter
--- OUTSIDE RECORDS SUMMARY | 2022-03-20 16:20 | XMS_ITS | Encounter Summary ---
:1975 Author Organization [employer] Address [address], [place] [address] Care Team Providers Name Role Phone Sherie Baez PA-C Primary Care Provider Reason for Visit Reason Comments Other Encounter Details Date Type Department Care Team Description 06/10/[address] [facility] Sherie Falcon PA-C Other [address] [address] [place] [address] [phone] (Wo rk) Social History Tobacco Use Types Packs/Day Years Used Date Smoking Tobacco: Never Assessed Sex Assigned at Date Recorded Female 05/09/2021 7:19 PM HEAD TENNIS COACH documented as of this encounter [facility], Message - 06/10/2007 12:58 PM CST Phone Note filed by [email or web address] at 10/12/10 1052 Author: [email or web address] Service: (none) Author Type: (none) Filed: 10/12/10 1056 Note Time: 06/10/07 1258 Status: Signed Physical Therapy Technician: [email or web address] Prescription Refill Please provide enough refills to last until patient's next visit. Comment:- Pharmacy Seq #:-print to [facility] Pharmacy Name:-[facility] Pharmacy Street or City:-[place] Clinician Name:-A Strong Drug Name/Strength:-Differin 0.1% Gel Sig: Dose/Route/Freq:-apply at bedtime Quantity & Last Fill:-45 02/19/04 Created on 10Jun2007 12:58pm by CATIE AVILEZ On 10Jun2007 1:29pm SHERIE BAEZ wrote: Sent. Acknowledged by SHERIE BAEZ on 1:29pm TENNIS COACH documented in this encounter Plan of Treatment Upcoming Encounters Date Type Specialty Care Team Description 05/05/2022 Appointment Chemo Therapy/Infusion Services 09/15/2022 Telemedicine Gastroenterology Eusebio Haines MD [address] [place] [address] (Wo rk) documented as of this encounter Visit Diagnoses Not on filedocumented in this encounter Care Teams Broadcast Systems Engineer Relationship Specialty Start Date End Date Sherie Baez PA-C PCP - General 09/25/10 03/14/15 [address], [place] [id number] documented as of this encounter
--- OUTSIDE RECORDS SUMMARY | 2022-03-20 16:20 | XMS_ITS | Encounter Summary ---
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 documented as of this encounter Last Filed Vital Signs Vital Sign Reading Time Taken Comments Blood Pressure 136/70 04/04/2007 8:09 AM CDT Pulse 112 04/04/2007 8:09 AM CDT Temperature - - Respiratory Rate 16 04/04/2007 8:09 AM CDT Oxygen Saturation - - Inhaled Oxygen Concentration - - Weight 88 kg (193 lb 15.7 oz) 04/04/2007 8:09 AM CDT C: 88.0kg Height 168.9 cm (5' 6.5) 04/04/2007 8:09 AM CDT C: 168 .9cm Body Mass Index 30.84 04/04/2007 8:09 AM CDT documented in this encounter Progress Notes Munira Combs PA-C - 04/04/2007 12:01 AM CDT H&P signed by Munira Combs PA-C at 04/09/07 3010 Author: Munira Combs PA-C Service: (none) Author Type: Physician Infrastructure Technician Filed: 10/14/10 2153 Note Time: 04/04/07 0001 Status: Signed Residential Direct Support Professional: uMnira Combs PA-C (Physician Infrastructure Technician) NAME: IGGY DUARTE MR#: [id number] ACCT: [id number] VISIT: [id number] DICTATING CLINICIAN: SHAKA HELM JOB: [id number] LOC: 502 CLINIC PHYSICAL DATE OF VISIT: 04/04/2007 SUBJECTIVE: Iggy is a 31-year-old female who comes to the clinic today for a physical. No specific concerns today. PAST MEDICAL HISTORY: Frequent headaches which are well controlled on amitriptyline. While she is taking the medication, she does not have any headaches at all. Irritable bowel syndrome which is much better than it has been since she has made some dietary changes. She uses dicyclomine p.r.n. with good control. She is taking Necon for contraception and wants a refill. No history of DVT, PE, or HTN. She has struggled with obesity, more recently was taking phentermine. Has not been helpful. Has not used this recently. Remainder of past medical history, family history, and social history unchanged from note dated 02/08/06. She continues to be active with horseback riding and is doing a lot of activities. She got a flu shot yesterday. She is still smoking socially, but really wants to quit, wants a prescription for Chantix. 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 REVIEW OF SYSTEMS: Complete review of systems negative. OBJECTIVE: VS: BP: 136/70. P: 112. Ht: 5 ft 6-1/2 in. Wt: 194. CONSTITUTIONAL: Sitting comfortably, appears well. Eyes: Sclerae and conjunctivae clear. PERRL bilaterally. ENT: TMs nonerythematous. Nasal mucosa noncongested. Oropharynx clear. NECK: No cervical lymphadenopathy or thyromegaly. LUNGS: Clear to auscultation. Respiratory effort is normal. HEART: Regular rate and rhythm without murmur. BREASTS: No palpable masses or axillary lymphadenopathy. ABDOMEN: Soft, nontender, nondistended. : External genitalia normal. [place] rugated vagina. Nulliparous cervix without lesions. No adnexal masses or tenderness. EXTREMITIES: 2+ pulses, upper and lower extremities, without edema. SKIN: No obvious rashes or lesions. PSYCH: Well oriented. Affect and mood are good. ASSESSMENT: 1. Well adult. PLAN: Pap smear, cholesterol, and glucose. Refilled medications. Will not continue to use phentermine at this point. Recommended followup in the near future for repeat blood pressure check which was a bit elevated today. Discussed importance of regular exercise. AMS:[id number] C: 04/05/07 12:47 DOCUMENT: [id number] documented in this encounter Plan of Treatment Upcoming Encounters Date Type Specialty Care Team Description 05/05/2022 Appointment Chemo Therapy/Infusion Services 09/15/2022 Telemedicine Gastroenterology Eusebio Haines MD [address] [place] [address] (Wo rk) documented as of this encounter Visit Diagnoses Not on filedocumented in this encounter Care Teams Manager Of Operations Relationship Specialty Start Date End Date Munira Combs PA-C PCP - General 09/25/10 03/14/15 [address] [place] [address] documented as of this encounter
--- OUTSIDE RECORDS SUMMARY | 2022-03-20 16:20 | XMS_ITS | Encounter Summary ---
:1975 [facility] Address [address] [place] [address] Care Team Providers Name Role Phone Munira Combs PA-C Primary Care Provider Encounter Details Date Type Department Care Team Description 10/19/2005 Office Visit [facility] [place] [address] [place] [address] [place] [address] [phone] (Wo rk) Social History Tobacco Use Types Packs/Day Years Used Date Smoking Tobacco: Never Assessed Sex Assigned at Date Recorded Female 05/09/2021 7:19 PM ESCORT PATIENTS documented as of this encounter Progress Notes Jovan Soto MD - 10/19/2005 12:01 AM CDT Progress Notes signed by Jovan Soto MD at 11/02/05 1036 Author: Jovan Soto MD Service: (none) Author Type: Physician Filed: 10/14/10 1111 Note Time: 10/19/05 0001 Status: Signed Chief Reservoir Engineering: Jovan Soto MD (Physician) NAME: IGGY DUARTE MR: [id number] ACCT: [id number] VISIT: [id number] DICTATING CLINICIAN: JOVAN SOTO MD JOB: [id number] CLINIC PROGRESS NOTE DATE OF VISIT: 10/19/2005 SUBJECTIVE: This patient is seen for followup after a ganglion cyst excision from her left wrist. She reports mild discomfort. OBJECTIVE: The incision is healing well. There is some thickening of the scar in the area of the excision. ASSESSMENT: Excision ganglion cyst, left wrist. PLAN: She will continue with scar massage and increase activities as tolerated. Follow up on an as-needed basis. [id number]:[id number] C: 10/30/05 10:25 DOCUMENT: [id number] documented in this encounter Plan of Treatment Upcoming Encounters Date Type Specialty Care Team Description 05/05/2022 Appointment Chemo Therapy/Infusion Services 09/15/2022 Telemedicine Gastroenterology Eusebio Haines MD [address] [place] [address] (Wo rk) documented as of this encounter Visit Diagnoses Not on filedocumented in this encounter Care Teams Admissions Evaluator Relationship Specialty Start Date End Date Munira Combs PA-C PCP - General 09/25/10 03/14/15 [address] [place] [id number] documented as of this encounter
--- OUTSIDE RECORDS SUMMARY | 2022-03-20 16:20 | XMS_ITS | Encounter Summary ---
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 Again, she localizes pain over the anteromedial side of the ankle. Her symptoms are aggravated by inversion/eversion activities. REVIEW OF SYSTEMS: Negative for any numbness or tingling in the foot. OBJECTIVE: The patient is in no acute distress. On inspection of the ankle there is no obvious swelling, no deformity. There is mild tenderness over the deltoid ligament anteriorly. Sensation, motor function and circulation are intact. We reviewed the MRI study which showed some inflammation in the anterior deltoid, although the ligament is intact. The rest of the ankle appears normal. ASSESSMENT: Left ankle sprain. PLAN: I think her symptoms are some ongoing inflammation from her prior injuries. I recommended a trial of a lace up ankle brace and a referral to physical therapy for instruction in appropriate ankle rehab exercises. She was prescribed Feldene 20 mg daily. Follow up in 6 weeks if there is no improvement. MKT:[id number] C: 08/06/07 16:27 DOCUMENT: [id number] S ASSEMBLER documented in this encounter Plan of Treatment Upcoming Encounters Date Type Specialty Care Team Description 05/05/2022 Appointment Chemo Therapy/Infusion Services 09/15/2022 Telemedicine Gastroenterology Eusebio Haines MD [address] [place] [address] (Wo rk) documented as of this encounter Visit Diagnoses Not on filedocumented in this encounter Care Teams Insole Tack Puller Hand Relationship Specialty Start Date End Date Munira Combs PA-C PCP - General 09/25/10 03/14/15 [address] [place] [address] documented as of this encounter
--- OUTSIDE RECORDS SUMMARY | 2022-03-20 16:20 | XMS_ITS | Encounter Summary ---
:1975 Author Organization [employer] Address [address] [address] Care Team Providers Name Role Phone Sherie Baez PA-C Primary Care Provider Reason for Visit Reason Comments Other Encounter Details Date Type Department Care Team Description 09/21/2006 Telephone [facility] Sherie Falcon PA-C Other [address] [employer] [address] [address] [place] [address] [phone] (Wo rk) Social History Tobacco Use Types Packs/Day Years Used Date Smoking Tobacco: Never Assessed Sex Assigned at Date Recorded Female 05/09/2021 7:19 PM RADIOLOGY TECHNOLOGIST documented as of this encounter Progress Notes Center, Message - 09/21/2006 1:34 PM CDT Phone Note filed by [employer] at 10/11/105 Author: [employer] Service: (none) Author Type: (none) Filed: 10/11/101827 Note Time: 09/21/06 1334 Status: Signed 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 Comment:-Patient wants to try a higher dose Pharmacy Seq #:-send print to [place] [facility] Name:-[facility] Street or City:-[place] Clinician Name:-A Strong Drug Name/Strength:-Phentermine 15MG cap Sig: Dose/Route/Freq:-take one cap daily Quantity & Last Fill:-30 07/27/06 Created on 21Sep2006 1:34pm by CATIE AVILEZ On 21Sep2006 2:07pm SHERIE BAEZ wrote: rx sent Acknowledged by SHREIE BAEZ on 2:07pm OLOGY TECHNOLOGIST documented in this encounter Plan of Treatment Upcoming Encounters Date Type Specialty Care Team Description 05/05/2022 Appointment Chemo Therapy/Infusion Services 09/15/2022 Telemedicine Gastroenterology Eusebio Haines MD [address] [place] [address] (Wo rk) documented as of this encounter Visit Diagnoses Not on filedocumented in this encounter Care Teams Demolition Crane Operator Relationship Specialty Start Date End Date Sherie Baez, PA-C PCP - General 09/25/10 03/14/15 [address] [place] [address] documented as of this encounter
--- OUTSIDE RECORDS SUMMARY | 2022-03-20 16:20 | XMS_ITS | Encounter Summary ---
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 User may not have seen previo us data. Respiratory Rate 20 12/13/2005 8:19 AM CDT Oxygen Saturation - - Inhaled Oxygen - - Concentration Weight - - Height - - Body Mass Index - - documented in this encounter Progress Notes Ayanna Barrera DO - 12/13/2005 12:01 AM CDT Progress Notes signed by Ayanna Barrera DO at 12/19/05 2232 Author: Ayanna Barrera DO Service: (none) Author Type: Physician Filed: 10/14/10 1218 Note Time: 12/13/052022 Status: Signed Rubber Chemist: Ayanna Barrera DO (Physician) NAME: IGGY DUARTE MR: [id number] ACCT: [id number] VISIT: [id number] DICTATING CLINICIAN: AYANNA BARRERA DO JOB: [id number] CLINIC PROGRESS NOTE DATE OF VISIT: 12/13/2005 SUBJECTIVE: The patient has had pain in her left middle back. It started yesterday. She was riding a horse yesterday but denies any specific injury. She did jump off the horse rather rapidly. She also has had a cough for the past week, which seems to be deep in her chest. Whenever she takes a deep breath, she coughs more. She has been a little bit short of breath. She also has had a history of urinary tract infection. It has been a long time since she has had one. She denies having any fevers. She has not had any nausea or vomiting. She is taking fluids well. She has not had any abdominal pain. She denies seeing any blood in her urine. She smokes cigarettes on a social basis only. She denies any injury to her back. She is taking oral contraceptives and has not missed any. She also takes Imitrex only on a chronic basis. Her cough is slightly productive at times. OBJECTIVE: VS: Stable. The patient is a well-developed, well-nourished adult female in no acute distress HEART: Regular rate and rhythm. LUNGS: Clear to auscultation. There is a harsh cough. There is no respiratory distress at rest. ENT: Tympanic membranes are intact and clear. Oropharynx and nasal passages are clear. NECK: Supple and there is no cervical lymphadenopathy. There is some mild left flank pain posteriorly with percussion. ABDOMEN: Soft and there are good bowel sounds. There is no guarding, rebound or rigidity. EXTREMITIES: Good tone and color. There is no edema or cyanosis. EYES: Clear. SKIN: No rashes noted. Urinalysis showed moderate white blood cells and bacteria. There was also a trace of blood. Urine was sent for culture. Chest x-ray performed showed no evidence of infiltrates, consolidates, effusions or pneumothorax. The chest x-ray was ordered and independently reviewed by myself. ASSESSMENT: 1. Urinary tract infection. 2. Cough and shortness of breath with history of pneumonia. PLAN: 1. Levaquin 500 mg b.i.d. for 10 days. 2. Await Radiology confirmation of chest x-ray. 3. Recommended Advil as needed. 4. Urine sent for culture. Await results of this. 5. Follow up with personal physician in 1 week for recheck. Call in sooner or return to our clinic if she worsens or develops new symptoms. RJGordon:[id number] C: 12/15/05 00:14 DOCUMENT: [id number] documented in this encounter Plan of Treatment Upcoming Encounters Date Type Specialty Care Team Description 05/05/2022 Appointment Chemo Therapy/Infusion Services 09/15/2022 Telemedicine Gastroenterology Eusebio Haines MD [address] [place] [address] (Wo rk) documented as of this encounter Procedures Procedure Name Priority Date/Time Associated Diagnosis Comme nts XR CHEST 2 VIEWS Routine 12/13/2005 9:04 AM Resul ts for this CDT procedure are i n the results section. documented in this encounter Results XR Chest 2 Views (12/13/2005 9:04 AM CDT) Anatomical Region Laterality Modality Chest, Lung Other Specimen (Source) Anatomical Location Collection Method / Collectio n Time Received Time / Laterality Volume Impressions 12/13/2005 9:04 AM CDT : ??Negative chest. [id number]/[facility] Dictating GERI GREENE Radiologist Narrative 12/13/2005 9:04 AM CDT COMPARISON STUDY: ??06/08/05. CLINICAL HISTORY: ??30-year-old female w ith cough. Procedure Note Geri Wiley MD - 08/25/2016Formattin g of this note might be different from the original. COMPARISON STUDY: 06/08/05. CLINICAL HISTORY: 30-year-old female wit h cough. IMPRESSION : Negative chest. [id number]/[facility] Dictating GERI GREENE Radiologist Ayanna J Sinda DO RAD GD documented in this encounter Visit Diagnoses Not on filedocumented in this encounter Care Teams Correctional Medicine Physician Relationship Specialty Start Date End Date Munira Combs PA-C PCP - General 09/25/10 03/14/15 [address] [place] [address] documented as of this encounter
--- OUTSIDE RECORDS SUMMARY | 2022-03-20 16:20 | XMS_ITS | Encounter Summary ---
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
--- OUTSIDE RECORDS SUMMARY | 2022-03-20 16:20 | XMS_ITS | Encounter Summary ---
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
--- OUTSIDE RECORDS SUMMARY | 2022-03-20 16:20 | XMS_ITS | Encounter Summary ---
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 GLUCOSE Routine 04/04/2007 8:50 AM Results f or this CDT procedure are i n the results section. LIPID PANEL AND Routine 04/04/2007 8:50 AM Result s for this DIRECT LDL(IF CDT procedure are in NEEDED) the results section. documented in this encounter Results Pap Smear (04/04/2007 9:09 AM CDT) [facility] gist Method Time Signature PAP Smear SEE TEXT No normal HP CONVERSION Liquid Based range Comment: Patient: IGGY DUARTE ? CERVICAL CYTOLOGY REPORT Pathology # ??[id number] ?Date Obtained: ? Date Received: CYTOLOGIC IMPRESSION: Negative for intraepithelial lesion or m alignancy. Verified 04/08/07 by: ??TASHA ?(electronic signature) ? CELSO TIONAL DATA LMP: CLINICAL HIST LIQUID BASED PAP CERVICAL SPECIMEN ADEQUACY: ?? Satisfactory. ENDOCERVICAL CELLS: ??Present. Specimen (Source) Anatomical Collection Method Collection Time Re ceived Time Location / / Volume Laterality 04/04/2007 9:09 AM CDT Munira Combs PA-C LAB_1 Performing Organization Address City/[facility]/ZIP Code Phon e Number HP CONVERSION Glucose (04/04/2007 8:50 AM CDT) athologist Signature Length Of Fast 12.0 Hours HP CONVERSION Lab Glucose 82 60 - 100 HP CONVERSION mg/dL Specimen (Source) Anatomical Collection Method Collection Time Re ceived Time Location / / Volume Laterality 04/04/2007 8:50 AM CDT Munira Combs PA-C LAB_1 Performing Organization Address City/[facility] Code Phon e Number HP CONVERSION Lipid Panel and Direct LDL(If Needed) (04/04/2007 8:50 AM CDT) [facility] gist Method Time Signature Length Of Fast 12.0 Hours HP CONVERSION Cholesterol/HDL 3.7 No normal HP CONVERSION Ratio Screen range Cholesterol 190 <200 mg/dL HP CONVERSION HDL Cholesterol 52 >40 mg/dL HP CONVERSION Triglycerides 139 0 - 149 HP CONVERSION mg/dL LDL Calculated 110 0 - 130 HP CONVERSION mg/dL Comment: Specimen (Source) Anatomical Collection Method Collection Time Re ceived Time Location / / Volume Laterality 04/04/2007 8:50 AM CDT Munira Combs PA-C LAB_1 Performing Organization Address City/State/ZIP Code Phon e Number HP CONVERSION documented in this encounter Visit Diagnoses Not on filedocumented in this encounter Care Teams Tin Can Laborer Relationship Specialty Start Date End Date Munira Combs PA-C PCP - General 09/25/10 03/14/15 [address] [place] [address] documented as of this encounter
--- OUTSIDE RECORDS SUMMARY | 2022-03-20 16:20 | XMS_ITS | Encounter Summary ---
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 documented as of this encounter Last Filed Vital Signs Vital Sign Reading Time Taken Comments Blood Pressure 112/82 02/08/2006 9:17 AM CDT Pulse 84 02/08/2006 9:17 AM CDT Temperature - - Respiratory Rate - - Oxygen Saturation - - Inhaled Oxygen Concentration - - Weight 88.5 kg (195 lb) 02/08/2006 9:17 AM CDT C: 88.5k g Height 168.3 cm (5' 6.25) 02/08/2006 9:17 AM CDT C: 16 8.3cm Body Mass Index 31.24 02/08/2006 9:17 AM CDT documented in this encounter Progress Notes Munira Combs PA-C - 02/08/2006 12:01 AM CDT H&P signed by Munira Combs PA-C at 02/08/06 1237 Author: Munira Combs PA-C Service: (none) Author Type: Physician Machinist Class B Filed: 10/14/10 2783 Note Time: 02/08/06 0001 Status: Signed Miniature Set Constructor: Munira Combs PA-C (Physician Machinist Class B) Preventive Exam & Pelvic IMPRESSION: Routine preventive exam. Obesity. Smoking. SUBJECTIVE: Patient presents for a routine preventive physical and pelvic exam. Requests OCP refill Current contraception: OCP's Patient is satisfied with her current method of contraception Wants to try phentermine. Has tried Xenical and Meridia and they didn't help. 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 has never been . Pap History: Last Pap smear: 2 yrs ago No history of abnormal Pap smears. Menstrual History: LMP: normal regular periods without dysmenorrhea STD History: No history of STD's. Other Medical/Surgical History: Headaches Obesity. IBS, symptoms primarily in the summer associated with anxiety about showing horses s/p Tonsillectomy. No hx heart problems, blood clots Adverse Drug Reactions: Pt's Adverse Drug Reactions were reviewed today, and updated on the Health Profile of [facility]. Current Medications: Reviewed today and updated on Health Profile in [facility]. Family History: (First degree family members) No premature ASCVD. No breast CA. No colon CA. No diabetes Mellitus. No DVT, Pulmonary Embolism or Stroke. Social History: Employment status: Employed. 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 Duration of Current Relationship: 7 yrs Sexual History: Monogamous relationship. Habits Tobacco: Socially only. Alcohol: 2-3 drinks 4 nights a week in the summer.. Drug: Denies any drug use. Preventive Health Assessment: Calcium intake adequate. Exercise inadequate. Lipid screen is needed. Safe in relationship. Tetanus immunization is up-to-date. Review of Systems: With the exception of any items noted above, the remainder of complete ROS is negative. OBJECTIVE: Age: 30 years. General: Patient alert, in NAD. HEENT: PERRLA. Bilateral TM's, external Icanals, oropharynx normal. Neck: Supple, without thyromegaly or mass. Upper extremities: FROM with good strength, no lesions or deformities. CV: K RRR without murmurs, rubs or gallops. Resp: Clear to auscultation without Lcrackles, wheezes or distress. Abdomen: Soft, non-tender, without Mhepatosplenomegaly, masses, or hernias. Breasts: Nontender, without Nmasses, nipple discharge, erythema, or axillary adenopathy. Pelvic: Normal external genitalia and urethra. Iantha, moist vaginal and cervical mucosa, without lesions. On bimanual exam, uterus is mobile, normal size, shape & Qconsistency, with no uterine or adenexal masses appreciated. Rectal: Not Rexamined. Lymphatic: No neck, supraclavicular, axillary or groin Slymphadenopathy. Lower extremities: FROM, normal gait without edema, Tlesions, or deformity. Skin: No lesions. Neuro: CN II-XII, motor & Usensory function all intact. Psychiatric: Alert & oriented with normal affect and insight, does not appear depressed or anxious. ASSESSMENT: Routine preventive exam. Obesity. Smoking. PLAN: Pap smear. Cholesterol (Lipid) panel. TSH. We will mail lab results to patient. Prescriptions provided, see OP Med list on Health Profile in [facility]. Hepatitis B vaccine given. Instructed on when to return Alcohol use, safety and moderation discussed. Breast self-exam recommended. Instructed on breast self-exam. Discussed & recommended a balanced nutritious diet. Discussed benefits of regular exercise. Obesity, risks discussed. Rx phentermine 15 mg daily. Recommended mallet cutter. Cut out fast food, eat dinner earlier, avoid snacking. Recommended quit smoking. Return to clinic for advice. Prevention or Hormone Therapy: OCP Rx given, Prescriptions provided, see OP Med. list on Health Profile in [facility]. Risks, benefits, and alternatives for use were discussed. *SH~PC~PEF ~Shorthand Note completed on: 02/08/2006 12:37 PM documented in this encounter Plan of Treatment Upcoming Encounters Date Type Specialty Care Team Description 05/05/2022 Appointment Chemo Therapy/Infusion Services 09/15/2022 Telemedicine Gastroenterology Eusebio Haines MD [address] [place] [address] (Wo rk) documented as of this encounter Visit Diagnoses Not on filedocumented in this encounter Care Teams Hot Packer Relationship Specialty Start Date End Date Munira Combs PA-C PCP - General 09/25/10 03/14/15 [address] [place] [address] documented as of this encounter
--- OUTSIDE RECORDS SUMMARY | 2022-03-20 16:20 | XMS_ITS | Encounter Summary ---
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 Comment:- Pharmacy Seq #:-SEND PRINT TO [facility] Pharmacy Name:-[facility] Pharmacy Street or City:-[facility] Clinician Name:-NESTOR Drug Name/Strength:-DICUCLOMINE 20MG TAB Sig: Dose/Route/Freq:-TAKE 1 CAPUSLE FOUR TIMES DAILY Quantity & Last Fill:-120 10/24/06 Created on 28Nov2006 2:56pm by YARA QUINTANILLA On 28Nov2006 3:11pm SHERIE BAEZ wrote: Rx sent. Acknowledged by SHERIE BAEZ on 3:11pm E MATCHER documented in this encounter Plan of Treatment Upcoming Encounters Date Type Specialty Care Team Description 05/05/2022 Appointment Chemo Therapy/Infusion Services 09/15/2022 Telemedicine Gastroenterology Eusebio Haines MD [address] [place], [place] [address] (Wo rk) documented as of this encounter Visit Diagnoses Not on filedocumented in this encounter Care Teams Manager Diversity Relationship Specialty Start Date End Date Sherie Baez PA-C PCP - General 09/25/10 03/14/15 [address] [place], [place] [id number] documented as of this encounter
--- OUTSIDE RECORDS SUMMARY | 2022-03-20 16:20 | XMS_ITS | Encounter Summary ---
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 Comment:-Appt on Feb 08 Pharmacy Seq #:-print to [facility] Pharmacy Name:-[facility] Pharmacy Street or City:-[place] Clinician Name:-A Strong Drug Name/Strength:-Dicyclomine 20MG tab Sig: Dose/Route/Freq:-take one tab 4 times daily Quantity & Last Fill:-120 01/10/06 Created on 02Feb2006 3:02pm by CATIE AVILEZ On 02Feb2006 5:28pm DEREK GRIFFIN wrote: This med not on our SO list--will need provider input for refills. On 05Feb2006 8:02am SHERIE BAEZ wrote: Given #30. Must follow up for additional refills. Acknowledged by SHERIE BAEZ on 8:02am ION ASSISTANT documented in this encounter Plan of Treatment Upcoming Encounters Date Type Specialty Care Team Description 05/05/2022 Appointment Chemo Therapy/Infusion Services 09/15/2022 Telemedicine Gastroenterology Eusebio Haines MD [address] [place] [address] (Wo rk) documented as of this encounter Visit Diagnoses Not on filedocumented in this encounter Care Teams Aluminum Container Tester Relationship Specialty Start Date End Date Sherie Baez PAZitaC PCP - General 09/25/10 03/14/15 [address] [place] [address] documented as of this encounter
--- OUTSIDE RECORDS SUMMARY | 2022-03-20 16:20 | XMS_ITS | Encounter Summary ---
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 Patient prefers a response in ALEN:After hearing success stories on the HCG diet. I was wondering if you have any insites to this diet or what the protocall for the diet is. A few employees are in the process of ordering the medication over seas and from what I have heard, it has been a hit at [facility]. I am interested in trying this diet but prefer to go through a health care facility instead of just ordering it overseas. Created on 17Jun2007 7:58am by EM MURO On 20Jun2007 12:14pm SHERIE BAEZ wrote: I was not familiar with this diet. I researched it, but was unable to find any information about it using any of the reputable medical resources. I suspect that Hcg injections may cause nausea and perhaps reduce appetite, but I have not heard of this being used for weight loss. Possible risks are unclear. From what I read, you also have a 500 calorie a day diet. This is a starvation diet. I guarantee this will help a person lose weight but there is no way the weight loss could be maintained. All the weight would come back once you are off the diet. I would be very reluctant about ordering any kind of medicine from overseas. Other countries do not regulate meds like we do. If something is not widely available here, I suspect it is that way for a reason. Stick with a healthy diet and exercise. Sherie Baez PA-C Acknowledged by SHERIE BAEZ on 12:14pm On 20Jun2007 1:02pm DUSTY JAIME wrote: message sent through [employer] Acknowledged by DUSTY JAIME on 1:02pm MOTIVE BRAKE TECHNICIAN documented in this encounter Plan of Treatment Upcoming Encounters Date Type Specialty Care Team Description 05/05/2022 Appointment Chemo Therapy/Infusion Services 09/15/2022 Telemedicine Gastroenterology Eusebio Haines MD [address] [place] [address] (Wo rk) documented as of this encounter Visit Diagnoses Not on filedocumented in this encounter Care Teams Roller Coaster Designer Relationship Specialty Start Date End Date Sherie Baez PA-C PCP - General 09/25/10 03/14/15 [address] [place], [place] [id number] documented as of this encounter
--- OUTSIDE RECORDS SUMMARY | 2022-03-20 16:20 | XMS_ITS | Encounter Summary ---
:1975 Author Organization [employer] [facility] Address [address] [address] Care Team Providers Name Role Phone Sherie Baez PA-C Primary Care Provider Reason for Visit Reason Comments Other Encounter Details Date Type Department Care Team Description 05/14/2006 Telephone [facility] Sherie Falcon PA-C Other [address] [address] [facility] [address] [place] [address] [phone] (Wo rk) Social History Tobacco Use Types Packs/Day Years Used Date Smoking Tobacco: Never Assessed Sex Assigned at Date Recorded Female 05/09/2021 7:19 PM WASH CREW PERSON documented as of this encounter Progress Notes Center, Message - 05/14/2006 2:02 PM CST Phone Note filed by Xobni at 10/11/10 1112 Author: Xobni Service: (none) Author Type: (none) Filed: 10/11/10 1112 Note Time: 05/14/06 1402 Status: Signed Demand Generator Manager: Xobni Prescription Refill Please provide enough refills to last until patient's next visit. Comment:- Pharmacy Seq #:-send print to [facility] Pharmacy Name:-[facility] Pharmacy Street or City:-[place] Clinician Name:-Sherie Baez Drug Name/Strength:-Phentermine 15MG caps Sig: Dose/Route/Freq:-take one cap daily Quantity & Last Fill:-30 04/13/06 Created on 14May2006 2:02pm by CATIE AVILEZ On 14May2006 2:44pm SHERIE BAZE wrote: rx sent Acknowledged by SHERIE BAEZ on 2:44pm CREW PERSON documented in this encounter Plan of Treatment Upcoming Encounters Date Type Specialty Care Team Description 05/05/2022 Appointment Chemo Therapy/Infusion Services 09/15/2022 Telemedicine Gastroenterology Eusebio Haines MD [address] [place] [address] (Wo rk) documented as of this encounter Visit Diagnoses Not on filedocumented in this encounter Care Teams Wire Basket Maker Relationship Specialty Start Date End Date Sherie Baez PA-C PCP - General 09/25/10 03/14/15 [address] [place], [place] [id number] documented as of this encounter
--- OUTSIDE RECORDS SUMMARY | 2022-03-20 16:20 | XMS_ITS | Encounter Summary ---
:1975 Author Organization [facility] Address [address] [address] Care Team Providers Name Role Phone Sherie Baez PA-C Primary Care Provider Reason for Visit Reason Comments Other Encounter Details Date Type Department Care Team Description 01/21/2007 Telephone [facility] Sherie Falcon PA-C Other [address] [facility] [address] [address] [place] [address] [phone] (Wo rk) Social History Tobacco Use Types Packs/Day Years Used Date Smoking Tobacco: Never Assessed Sex Assigned at Date Recorded Female 05/09/2021 7:19 PM JAVASCRIPT DEVELOPER documented as of this encounter Progress Notes Center, Message - 01/21/2007 10:42 AM CDT Phone Note filed by Octopus Deploy at 10/12/10115 Author: Octopus Deploy Service: (none) Author Type: (none) Filed: 10/12/10115 Note Time: 01/21/07 1042 Status: Signed Community Chest Officer: Octopus Deploy Prescription Refill Please provide enough refills to last until patient's next visit. Comment:- Pharmacy Seq #:-[facility] Pharm[facility] Street or City:-[facility] Clinician Name:-[facility] Name/Strength:-Phentermine 30mg caps. Sig: Dose/Route/Freq:-Take 1 capsule daily. Quantity & Last Fill:-30 01/21/07 Created on 21Jan2007 10:42am by ANGIE ALVARENGA On 21Jan2007 11:13am SHERIE BAEZ wrote: Rx sent x 1 month. Needs appt for additional refills. Acknowledged by SHERIE BAEZ on 11:13am SCRIPT DEVELOPER documented in this encounter Plan of Treatment Upcoming Encounters Date Type Specialty Care Team Description 05/05/2022 Appointment Chemo Therapy/Infusion Services 09/15/2022 Telemedicine Gastroenterology Eusebio Haines MD [address] [place] [address] (Wo rk) documented as of this encounter Visit Diagnoses Not on filedocumented in this encounter Care Teams Scraper Tender Relationship Specialty Start Date End Date Sherie Baez PA-C PCP - General 09/25/10 03/14/15 [address] [place], [place] [phone] documented as of this encounter
--- OUTSIDE RECORDS SUMMARY | 2022-03-20 16:20 | XMS_ITS | Encounter Summary ---
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 documented as of this encounter Last Filed Vital Signs Vital Sign Reading Time Taken Comments Blood Pressure 142/68 03/18/2007 6:09 PM CDT Pulse 111 03/18/2007 6:09 PM CDT Temperature 37.7 ??C (99.9 ??F) 03/18/2007 6:09 PM ORAL C: 3 7.7 C CDT Respiratory Rate 16 03/18/2007 6:09 PM CDT Oxygen Saturation - - Inhaled Oxygen Concentration - - Weight - - Height - - Body Mass Index - - documented in this encounter Progress Notes Talita Jimenez MD - 03/18/2007 12:01 AM CDT Progress Notes signed by Talita Jimenez MD at 03/26/07 0449 Author: Talita Jimenez MD Service: (none) Author Type: Physician Filed: 10/14/10 2131 Note Time: 03/18/07 0001 Status: Signed Spouter: Talita Jimenez MD (Physician) NAME: IGGY DUARTE MR#: [id number] ACCT: [id number] VISIT: [id number] DICTATING CLINICIAN: Talita Jimenez MD JOB: [id number] LOC: 520 CLINIC PROGRESS NOTE DATE OF VISIT: 03/18/2007 SUBJECTIVE: She presents to the clinic with the chief complaint of a left foot injury. Earlier today she got out of bed and foot turned and she fell. She developed pain in the lateral foot. It hurts to bear weight, but she is able to bear weight if she puts the weight on her heel. Has not noticed any swelling. I noticed that her pulse and blood pressure are elevated. She notes they have been that way for quite some time. She was on Phentermine, but has not lost any weight. PAST MEDICAL HISTORY: Irritable bowel syndrome. MEDICATIONS: Tylenol, phentermine, Elavil, Necon. ADR/ALLERGIES: HO KNOWN DRUG ALLERGIES. OBJECTIVE: VS: BP: 142/68. T: 99.8. P: 111. R: 16. She is in no distress, does not appear ill. She does bear weight on the foot, but has an antalgic gait. LEFT FOOT: Does not reveal any swelling, redness, or breaks in the skin. DP and PT pulses are 2+. There is no tenderness over the lateral malleolus, the ATFL, PTFL, or CFL. There is tenderness rather diffusely over the fifth metatarsal and over the peroneal tendon. No tenderness over the toes or the fourth metatarsal. X-ray of the foot does not show any fractures to my reading. ASSESSMENT: 1. Lateral foot pain, likely due to a traumatic peroneal tendinitis. Discussed with her that no fractures were seen on the x-ray. I did discuss, however, that a radiologist will over read; and if there is any fracture seen, we will let her know. I have discussed it is possible to break a bone which does not show up on the initial x-ray. PLAN: She was placed in an air cast splint. I have recommended crutches as tolerated. I have recommended ibuprofen as needed. I have recommended elevation and ice. I have recommended followup with primary care doctor or Ortho in 7-10 days for recheck. I have discussed that since she has not lost any weight on the phentermine I recommend she discontinue it and have her pulse and blood pressure rechecked off it. She actually has an appointment with her PCP on 04/03, so can have them checked then. She verbalized understanding of the above information. JLP:[id number] C: 03/20/07 07:43 DOCUMENT: [id number] documented in this encounter Plan of Treatment Upcoming Encounters Date Type Specialty Care Team Description 05/05/2022 Appointment Chemo Therapy/Infusion Services 09/15/2022 Telemedicine Gastroenterology Eusebio Haines MD [address] [place], [place] [address] (Wo rk) documented as of this encounter Procedures Procedure Name Priority Date/Time Associated Diagnosis Comme nts XR FOOT LT 3+ VIEWS Routine 03/18/2007 7:29 PM Re sults for this CDT procedure are i n the results section. documented in this encounter Results XR Foot Lt 3+ Views (03/18/2007 7:29 PM CDT) Anatomical Region Laterality Modality Lower Extremity, Foot Other Specimen (Source) Anatomical Location Collection Method / Collectio n Time Received Time / Laterality Volume Narrative 03/18/2007 7:29 PM CDT There is no evidence of fracture or other bone or soft tissue abnormality. [id number] Dictating VIOLET CASPER RADIOLOGIST Procedure Note Violet Garces - 08/25/2016Formattin g of this note might be different from the original. There is no evidence of fracture or othe r bone or soft tissue abnormality. [id number] Dictating VIOLET CASPER RADIOLOGIST Talita Jimenez MD RAD GD documented in this encounter Visit Diagnoses Not on filedocumented in this encounter Care Teams Cisco Consultant Relationship Specialty Start Date End Date Munira Combs PA-C PCP - General 09/25/10 03/14/15 [address] [place] [address] documented as of this encounter
--- OUTSIDE RECORDS SUMMARY | 2022-03-20 16:20 | XMS_ITS | Encounter Summary ---
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 Comment:- Pharmacy Seq #:-print to [facility] Street or City:-[place] Clinician Name:-A Strong Drug Name/Strength:-Chantix Starting Month Rodolfo Sig: Dose/Route/Freq:-take 0.5MG daily on days 1-3, then increase to 0.5MG twice daily on days 4-7, then increase to 1MG twice daily for the duration of treatment. Quantity & Last Fill:-53 04/04/07 Created on 05Jul2007 3:29pm by CATIE AVILEZ On 05Jul2007 3:41pm ISATU ZAVALA wrote: Has patient gone to smoking cessation counselor? Does she know the side effects of this medication? She has not seen [facility] since 03-31 and they did not talk about this at that visit. I would suggest appointment with [facility] before starting this. Acknowledged by ISATU ZAVALA on 3:41pm On 05Jul2007 3:54pm DON SALGUERO wrote: The above message left for the pt. Pt informed to call back OK to talk to the [place] nurse or to schedule appt. Acknowledged by DON SALGUERO on 3:54pm On 15Jul2007 4:14pm DON SALGUERO wrote: Message left for the pt to call back. Acknowledged by DON SALGUERO on 4:14pm On 18Jul2007 10:18am RUDDY VALDES wrote: Nurse Lisa called back transferred [id number] On 18Jul2007 10:30am OMEGA NORWOOD wrote: Sending you AMS. Do see Chantix on med list. Not sure who Nurse Lisa is or where transferred to. On 18Jul2007 11:22am SHERIE BAEZ wrote: We have discussed it. Rx sent. Acknowledged by SHERIE BAZE on 11:22am ER documented in this encounter Plan of Treatment Upcoming Encounters Date Type Specialty Care Team Description 05/05/2022 Appointment Chemo Therapy/Infusion Services 09/15/2022 Telemedicine Gastroenterology Eusebio Haines MD [address] [place] [address] (Wo rk) documented as of this encounter Visit Diagnoses Not on filedocumented in this encounter Care Teams Finisher Card Tender Relationship Specialty Start Date End Date Sherie Baez PAZitaC PCP - General 09/25/10 03/14/15 [address] [place] [address] documented as of this encounter
--- OUTSIDE RECORDS SUMMARY | 2022-03-20 16:20 | XMS_ITS | Encounter Summary ---
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 The onset was in 02/2007. She may have sprained her ankle at that time. However, in early May, she began having increased pain, localized to the medial side of the ankle. Symptoms are aggravated by prolonged standing and walking. Pain is alleviated by use of Tylenol and ibuprofen. PAST MEDICAL HISTORY: She reports no chronic medical illness. MEDICATIONS: Chantix, Dicyclomine, amitriptyline, Differin gel, Necon. ADR/ALLERGIES: NONE. 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 She is a nonsmoker. Hobbies include horses, fishing, hunting, bowling, and softball. She exercises regularly, with home workouts. REVIEW OF SYSTEMS: Negative for visual, auditory, cardiopulmonary, digestive, neurologic, psychiatric or endocrine symptoms. OBJECTIVE: The patient is a healthy-appearing woman, in no acute distress. She ambulates with a normal gait. On inspection of the lower extremities, there is a moderate pes planus alignment bilaterally. Her skin is intact. On examination of the left ankle, there is tenderness over the medial malleolus. She does not have tenderness over the tibialis anterior or tibialis posterior tendons. She has normal range of motion of the ankle, which is painless. Sensation, motor function and circulation are intact. X-rays were obtained of the ankle today and reviewed with the patient. There is a normal-appearing ankle joint. There is possibly some lucency in the cancellous bone of the medial malleolus. ASSESSMENT: Left ankle pain. PLAN: I recommended we obtain an MRI study for further evaluation of her ongoing joint pain. Follow up after the MRI. MKT:[id number] C: 07/28/07 09:36 DOCUMENT: [id number] OZOOLOGIST documented in this encounter Plan of Treatment Upcoming Encounters Date Type Specialty Care Team Description 05/05/2022 Appointment Chemo Therapy/Infusion Services 09/15/2022 Telemedicine Gastroenterology Eusebio Haines MD [address] [place] [address] (Wo rk) documented as of this encounter Procedures Procedure Name Priority Date/Time Associated Diagnosis Comme nts XR ANKLE LT 3 VIEWS Routine 07/25/2007 9:39 AM Re sults for this PROTOZOOLOGIST procedure are i n the results section. documented in this encounter Results XR Ankle Lt 3 Views (07/25/2007 9:39 AM PROTOZOOLOGIST) Anatomical Region Laterality Modality Lower Extremity, Ankle, Foot & Ankle Oth er Specimen (Source) Anatomical Location Collection Method / Collectio n Time Received Time / Laterality Volume Impressions 07/25/2007 9:39 AM PROTOZOOLOGIST : ??Negative examination. [facility]/ ??[id number] Dictating GERI GREENE Radiologist Narrative 07/25/2007 9:39 AM PROTOZOOLOGIST COMPARISON STUDY: ??None. CLINICAL HISTORY: ??32-year-old female w ith pain. Procedure Note Geri Wiley MD - 08/25/2016Formattin g of this note might be different from the original. COMPARISON STUDY: None. CLINICAL HISTORY: 32-year-old female wit h pain. IMPRESSION : Negative examination. [facility]/ [id number] Dictating GERI GREENE Radiologist Jovan Soto MD RAD GD documented in this encounter Visit Diagnoses Not on filedocumented in this encounter Care Teams Parcel Post Carrier Relationship Specialty Start Date End Date Munira Combs PA-C PCP - General 09/25/10 03/14/15 [address] [place] [address] documented as of this encounter
--- OUTSIDE RECORDS SUMMARY | 2022-03-20 16:20 | XMS_ITS | Encounter Summary ---
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 CHOLESTEROL, TOTAL Routine 12/05/2006 9:20 AM Res ults for this AND HDL CDT procedure are i n the results section. documented in this encounter Results Cholesterol, Total and HDL (12/05/2006 9:20 AM CDT) Analysis Performed At Patho logist Time Signature Cholesterol/HDL 3.7 No normal HP CONVERSION Ratio Screen range Cholesterol 175 <200 mg/dL HP CONVERSION HDL Cholesterol 47 40 - 60 HP CONVERSION mg/dL Specimen (Source) Anatomical Collection Method Collection Time Re ceived Time Location / / Volume Laterality 12/05/2006 9:20 AM CDT Yimi Valle MD LAB_1 Performing Organization Address City/State/ZIP Code Phon e Number HP CONVERSION Glucose (12/05/2006 9:20 AM CDT) P athologist Signature Lab Glucose 71 60 - 100 HP CONVERSION mg/dL Specimen (Source) Anatomical Collection Method Collection Time Re ceived Time Location / / Volume Laterality 12/05/2006 9:20 AM CDT Yimi Valle MD LAB_1 Performing Organization Address City/State/ZIP Code Phon e Number HP CONVERSION documented in this encounter Visit Diagnoses Not on filedocumented in this encounter Care Teams Bundle Tier And Labeler Relationship Specialty Start Date End Date Munira Combs PA-C PCP - General 09/25/10 03/14/15 [address] [place] [address] documented as of this encounter
--- OUTSIDE RECORDS SUMMARY | 2022-03-20 16:20 | XMS_ITS | Encounter Summary ---
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 URINALYSIS Routine 12/13/2005 8:46 AM Results f or this ROUTINE(MICRO IF POS) CDT proced ure are in the results section. URINALYSIS Routine 12/13/2005 8:46 AM Results f or this MICROSCOPIC CDT procedure are i n the results section. documented in this encounter Results Urine Culture (12/13/2005 10:18 AM CDT) [facility] Time Signature Urine Culture SEE TEXT HP CONVERSION Comment: Patient: IGGY DUARTE Culture, Urine @ ?Collected: ??[id number] ??[id number] Source: Clean Ca ?Processed: ??[id number] ??1018 ? 1V, SENS Final Report ------ ?[id number] ??[id number] No growth @ = URINE CULTURE Performed at ??[address] [facility], [place] ?[address] Specimen (Source) Anatomical Collection Method Collection Time Re ceived Time Location / / Volume Laterality 12/13/2005 10:18 AM CDT Mario Grullon DO LAB_1 Performing Organization Address City/State/ZIP Code Phon e Number HP CONVERSION Urinalysis Routine(Micro If Pos) (12/13/2005 8:46 AM CDT) [facility] gist Method Time Signature Turbidity Clear No normal HP CONVERSION range pH Urine 6.0 4.5 - 7.5 HP CONVERSION Protein Urine Negative Neg-Trac HP CONVERSION Glucose, Negative Neg-Trac HP CONVERSION Qualitative U Ketones Negative Negative HP CONVERSION U BILI Negative Negative HP CONVERSION Blood Urine Negative Negative HP CONVERSION Nitrite Urine Negative Negative HP CONVERSION Leukocyte Negative Negative HP CONVERSION Esterase Urine Urobilinogen Negative 0.2 - 1.0 HP CONVERSION Urine U Specific >=1.030 1.005 - 25 HP CONVERSION [place] Specimen (Source) Anatomical Collection Method Collection Time Re ceived Time Location / / Volume Laterality 12/13/2005 8:46 AM CDT Mario Grullon DO LAB_1 Performing Organization Address City/[facility]/ZIP Code Phon e Number HP CONVERSION (ABNORMAL) Urinalysis Microscopic (12/13/2005 8:46 AM CDT) [facility] gist Method Time Signature White Blood 10-24/HP (A) 0 - 3 HP CONVERSION Cells Urine Red Blood 3-4/HPF (A) 0 - 2 HP CONVERSION Cells Urine Bacteria Urine Occassnl (A) None HP CONVERSIO N Urine Mucus Moderate None HP CONVERSION Epithelial Few Few /HPF HP CONVERSION Cells Specimen (Source) Anatomical Collection Method Collection Time Re ceived Time Location / / Volume Laterality 12/13/2005 8:46 AM CDT Mario Grullon DO LAB_1 Performing Organization Address City/[facility] Phon e Number HP CONVERSION documented in this encounter Visit Diagnoses Not on filedocumented in this encounter Care Teams Test Evaluator Relationship Specialty Start Date End Date Munira Combs PA-C PCP - General 09/25/10 03/14/15 [address] [place] [address] documented as of this encounter
--- OUTSIDE RECORDS SUMMARY | 2022-03-20 16:21 | XMS_ITS | Encounter Summary ---
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
--- OUTSIDE RECORDS SUMMARY | 2022-03-20 16:21 | XMS_ITS | Encounter Summary ---
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 Pt has no migraine rx, has just been taking Tyl. She got a headache last that lasted until Sunday. She took a OTC tylenol with caffeine med on Sunday and that took the headache away. She does not have a headache today, but already took this OTC product so she wouldn't get one today. Pt has been getting more headaches, so wanted to be put on something preventively. She says Dr Schuster had mentioned Amitriptyline. 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 Pharm is [facility]. Idania's extension is [phone]. Created on 08May2005 8:44am by ARACELI STILL On 08May2005 9:59am ELLIE MANRIQUE wrote: amitriptylene 25mg, 1-2 @ hs; 3 refills, #60 Acknowledged by ELLIE MANRIQUE on 9:59am On 08May2005 10:41am PARVIN DALEY wrote: Rx printed at [facility], pt notified. DE SALES TERRITORY MANAGER documented in this encounter Plan of Treatment Upcoming Encounters Date Type Specialty Care Team Description 05/05/2022 Appointment Chemo Therapy/Infusion Services 09/15/2022 Telemedicine Gastroenterology Ellie Haines MD [address] [place] [address] (Wo rk) documented as of this encounter Visit Diagnoses Not on filedocumented in this encounter Care Teams Gameroom Technician Relationship Specialty Start Date End Date Munira Combs PA-C PCP - General 09/25/10 03/14/15 [address] [place], [place] [address] documented as of this encounter
--- OUTSIDE RECORDS SUMMARY | 2022-03-20 16:21 | XMS_ITS | Encounter Summary ---
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 HEMOGLOBIN, BLOOD Routine 12/19/2004 2:10 PM Resu lts for this CDT procedure are i n the results section. WBC, BLOOD Routine 12/19/2004 2:10 PM Results f or this CDT procedure are i n the results section. TEST Routine 12/19/2004 2:10 PM Results for this (URINE) CDT procedure are i n the results section. AST Routine 12/19/2004 2:10 PM Results f or this CDT procedure are i n the results section. SODIUM Routine 12/19/2004 2:10 PM Results f or this CDT procedure are i n the results section. POTASSIUM Routine 12/19/2004 2:10 PM Results f or this CDT procedure are i n the results section. BILIRUBIN, TOTAL Routine 12/19/2004 2:10 PM Resul ts for this CDT procedure are i n the results section. ANATOMICAL PATH Routine 12/19/2004 9:26 AM Result s for this LIQUID BASED CDT procedure are i n the results section. documented in this encounter Results AST (12/19/2004 2:10 PM CDT) [facility] Time Signature Aspartate 16 0 - 45 HP CONVERSION Aminotransferase U/L Specimen (Source) Anatomical Collection Method Collection Time Re ceived Time Location / / Volume Laterality 12/19/2004 2:10 PM CDT Paco Bazzi MD LAB_1 Performing Organization Address City/[facility]/ZIP Code Phon e Number HP CONVERSION Bilirubin, Total (12/19/2004 2:10 PM CDT) athologist Signature Bilirubin Total 0.2 0.2 - 1.2 HP CONVERSION mg/dL Specimen (Source) Anatomical Collection Method Collection Time Re ceived Time Location / / Volume Laterality 12/19/2004 2:10 PM CDT Paco Bazzi MD LAB_1 Performing Organization Address City/State/ZIP Code Phon e Number HP CONVERSION Potassium (12/19/2004 2:10 PM CDT) athologist Signature Potassium 3.9 3.5 - 5.2 HP CONVERSION meq/L Specimen (Source) Anatomical Collection Method Collection Time Re ceived Time Location / / Volume Laterality 12/19/2004 2:10 PM CDT Paco Bazzi MD LAB_1 Performing Organization Address City/[facility]/ZIP Code Phon e Number HP CONVERSION Sodium (12/19/2004 2:10 PM CDT) athologist Signature Sodium 138 137 - 147 HP CONVERSION meq/L Specimen (Source) Anatomical Collection Method Collection Time Re ceived Time Location / / Volume Laterality 12/19/2004 2:10 PM CDT Paco Bazzi MD LAB_1 Performing Organization Address City/State/ZIP Code Phon e Number HP CONVERSION Hemoglobin, Blood (12/19/2004 2:10 PM CDT) athologist Signature Hemoglobin 14.6 11.8 - 15.5 HP CONVERSION gm/dL Specimen (Source) Anatomical Collection Method Collection Time Re ceived Time Location / / Volume Laterality 12/19/2004 2:10 PM CDT Paco Bazzi MD LAB_1 Performing Organization Address City/State/ZIP Code Phon e Number HP CONVERSION WBC, Blood (12/19/2004 2:10 PM CDT) athologist Signature White Blood 8.1 3.8 - 11.0 HP CONVERSION Cell Count K/cmm Specimen (Source) Anatomical Collection Method Collection Time Re ceived Time Location / / Volume Laterality 12/19/2004 2:10 PM CDT Paco Bazzi MD LAB_1 Performing Organization Address City/State/ZIP Code Phon e Number HP CONVERSION (ABNORMAL) Urinalysis Complete (12/19/2004 2:10 PM CDT) [facility] gist Method Time Signature Glucose, Negative Neg-Trac HP CONVERSION Qualitative U Protein Urine Trace Neg-Trac HP CONVERSION Ketones Trace (A) Negative HP CONVERSION U BILI Negative Negative HP CONVERSION U Specific 1.025 1.005 - 25 HP CONVERSION [place] Blood Urine Large (A) Negative HP CONVERSION pH Urine 6.0 4.5 - 7.5 HP CONVERSION Urobilinogen Negative 0.2 - 1.0 HP CONVERSION Urine Nitrite Urine Negative Negative HP CONVERSION Leukocyte Negative Negative HP CONVERSION Esterase Urine White Blood 3-4/HPF 0 - 3 HP CONVERSION Cells Urine Red Blood Cells 10-24/HP 0 - 2 HP CONVERSION Urine (A) Bacteria Urine Few (A) None HP CONVERSION Urine Mucus Large None HP CONVERSION Epithelial Cells Moderate Few /HPF HP CONVERSION Specimen (Source) Anatomical Collection Method Collection Time Re ceived Time Location / / Volume Laterality 12/19/2004 2:10 PM CDT Paco Bazzi MD LAB_1 Performing Organization Address City/[facility]/ZIP Code Phon e Number HP CONVERSION Test (Urine) (12/19/2004 2:10 PM CDT) [email or web address] Method Time Signature Urine Negative No normal HP CONVERSION Test range Comment: The sensitivity of this assay is 25 mIU/ mL. This test can detect as early as 10-12 days after conception. It may be positive before a first missed menses. A negative result does no t rule out an early . Specimen (Source) Anatomical Collection Method Collection Time Re ceived Time Location / / Volume Laterality 12/19/2004 2:10 PM CDT Paco Bazzi MD LAB_1 Performing Organization Address City/[facility] Phon e Number HP CONVERSION Pap Smear (12/19/2004 9:26 AM CDT) [email or web address] Method Time Signature PAP Smear SEE TEXT No normal HP CONVERSION Liquid Based range Comment: Patient: IGGY DUARTE ? CERVICAL CYTOLOGY REPORT Pathology # ??[id number] ?Date Obtained: ? Date Received: CYTOLOGIC IMPRESSION: Negative for intraepithelial lesion or m alignancy. ? CELSO TIONAL DATA LMP: CLINICAL HIST LIQUID BASED PAP CERVICAL SPECIMEN ADEQUACY: ?? Satisfactory. ENDOCERVICAL CELLS: ??Present. Verified 12/29/04 by: ??S_V ?(electronic signature) Specimen (Source) Anatomical Collection Method Collection Time Re ceived Time Location / / Volume Laterality 12/19/2004 9:26 AM CDT Paco Bazzi MD LAB_1 Performing Organization Address City/State/ZIP Code Phon e Number HP CONVERSION documented in this encounter Visit Diagnoses Not on filedocumented in this encounter Care Teams Fitness Floor Attendant Relationship Specialty Start Date End Date Munira Combs PA-C PCP - General 09/25/10 03/14/15 [address] [place] [address] documented as of this encounter
--- OUTSIDE RECORDS SUMMARY | 2022-03-20 16:21 | XMS_ITS | Encounter Summary ---
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 WET PREP Routine 12/22/2004 9:08 AM Results f or this CDT procedure are i n the results section. documented in this encounter Results Sexually Transmitted Disease Probe (12/22/2004 9:09 AM CDT) Patholo gist Method Time Signature Sexually SEE TEXT HP CONVERSION Transmitted Disease Probe Comment: Patient: IGGY DUARTE Sexually Trans Disease Probe @ ?Collected: ??[id number] ??[id number] Source: ENDOCERV ?Processed: ??[id number] ??[id number] Final Report ------ ?[id number] ??[id number] No Chlamydia trachomatis detected by amp lified DNA assay No Neisseria gonorrhoeae detected by amp lified DNA assay NOTE: The Sodraft Amplified DNA assay s hould not be used for the evaluation of suspected se xual abuse or for other medico-legal indications. Add itional testing is recommended in any circumstance when false positive or ??false negative results could lead to adverse medical, social, or psychological conse quences. @ = Sexually Trans Disease Probe Perform ed at ??[address] [facility], [place] [address] Specimen (Source) Anatomical Collection Method Collection Time Re ceived Time Location / / Volume Laterality 12/22/2004 9:09 AM CDT Elsa Lopes APRN, PROGRAM REP LAB_1 Performing Organization Address City/State/ZIP Code Phon e Number HP CONVERSION Wet Prep (12/22/2004 9:08 AM CDT) P athologist Signature Wet Prep SEE TEXT HP CONVERSION Comment: Patient: IGGY DUARTE Wet Prep @ ?Collected: ??[id number] ??[id number] Source: Vaginal ? Processed: ??[id number] ??[id number] Final Report ------ Many WBCs seen Many epithelial cells seen No Trichomonas seen No yeast seen No clue cells seen @ = WET PREP Performed at ??[address] [place], [place] ??[address] Specimen (Source) Anatomical Collection Method Collection Time Re ceived Time Location / / Volume Laterality 12/22/2004 9:08 AM CDT Elsa Lopes APRN, CNP LAB_1 Performing Organization Address City/State/ZIP Code Phon e Number HP CONVERSION documented in this encounter Visit Diagnoses Not on filedocumented in this encounter Care Teams Set Up Operator Tool Relationship Specialty Start Date End Date Munira Combs PA-C PCP - General 09/25/10 03/14/15 [address] [place] [address] documented as of this encounter
--- OUTSIDE RECORDS SUMMARY | 2022-03-20 16:21 | XMS_ITS | Encounter Summary ---
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 documented as of this encounter Plan of Treatment Upcoming Encounters Date Type Specialty Care Team Description 05/05/2022 Appointment Chemo Therapy/Infusion Services 09/15/2022 Telemedicine Gastroenterology Eusebio Haines MD [address] [place], [place] [address] (Wo rk) documented as of this encounter Procedures Procedure Name Priority Date/Time Associated Diagnosis Comme nts ENDOSCOPY, SIGMOID Routine 01/03/2005 4:28 PM CDT documented in this encounter Results Endoscopy, sigmoid (01/03/2005 4:28 PM CDT) Specimen (Source) Anatomical Location Collection Method / Collectio n Time Received Time / Laterality Volume User Conversion PN GI PROCEDURE ORDERABLES Performing Organization Address City/State/ZIP Code Phon e Number HP CONVERSION documented in this encounter Visit Diagnoses Not on filedocumented in this encounter Care Teams Drapery Sewer Hand Relationship Specialty Start Date End Date Munira Combs PA-C PCP - General 09/25/10 03/14/15 [address] [place] [address] documented as of this encounter
--- OUTSIDE RECORDS SUMMARY | 2022-03-20 16:21 | XMS_ITS | Encounter Summary ---
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
--- OUTSIDE RECORDS SUMMARY | 2022-03-20 16:21 | XMS_ITS | Encounter Summary ---
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 BETA STREP FOLLOWUP Routine 03/17/2005 11:38 AM R esults for this CDT procedure are i n the results section. documented in this encounter Results Strep Group A Antigen Test (03/17/2005 11:38 AM CDT) Analysis Performed At Patho logist Time Signature Strep Group A Negative Negative HP CONVERSION Antigen Test Comment: Culture to follow. Specimen (Source) Anatomical Collection Method Collection Time Re ceived Time Location / / Volume Laterality 03/17/2005 11:38 AM CDT Miguel Ángel Schuster MD LAB_1 Performing Organization Address [facility] Code Phon e Number HP CONVERSION Beta Strep Followup (03/17/2005 11:38 AM CDT) athologist Signature Strep Screen SEE TEXT HP CONVERSION Comment: Patient: IGGY DUARTE Rapid Strep Follow up Culture @ ? Collected: ??[id number] ??[id number] Source: Throat ?Processed: ??[id number] ??[id number] Final Report ------ ?[id number] ??0714 No beta hemolytic Strep group A isolated . @ = Rapid F/U Cult Performed at [address] [place] ?[address] Specimen (Source) Anatomical Collection Method Collection Time Re ceived Time Location / / Volume Laterality 03/17/2005 11:38 AM CDT Miguel Ángel Schuster MD LAB_1 Performing Organization Address City/[facility] Code Phon e Number HP CONVERSION documented in this encounter Visit Diagnoses Not on filedocumented in this encounter Care Teams Typing Secretary Relationship Specialty Start Date End Date Munira Combs PA-C PCP - General 09/25/10 03/14/15 [address] [place] [address] documented as of this encounter
--- OUTSIDE RECORDS SUMMARY | 2022-03-20 16:21 | XMS_ITS | Encounter Summary ---
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 documented as of this encounter Progress Notes Justin Dunaway PA-C - 06/13/2005 3:04 PM CST Phone Note filed by Justin Dunaway PA-C at 10/10/10 9891 Author: Justin Dunaway PA-C Service: (none) Author Type: Physician Spinning Machine Tender Filed: 10/10/10 6326 Note Time: 06/13/05 7097 Status: Signed Voting Machine Repairer: Justin Dunaway PA-C (Physician Spinning Machine Tender) Spoke with Idania and gave her normal LFTs, BUN/creatinine, Albumin, and ASO results; however, 10-24 WBCs, pos Leuk Est, and bacteria in Urine, so will treat for asymptomatic UTI with Cipro 500 mg 1 po bid x 3 days, prescription faxed to [facility] 1c pharmacy. Her edema has resolved and she is feeling well with no residual symptoms. Created on 13Jun2005 3:04pm by JUSTIN DUNAWAY E INSTRUCTOR documented in this encounter Plan of Treatment Upcoming Encounters Date Type Specialty Care Team Description 05/05/2022 Appointment Chemo Therapy/Infusion Services 09/15/2022 Telemedicine Gastroenterology Eusebio Haines MD [address] [place] [address] (Wo rk) documented as of this encounter Visit Diagnoses Not on filedocumented in this encounter Care Teams Butcher All Round Relationship Specialty Start Date End Date Munira Combs PA-C PCP - General 09/25/10 03/14/15 [address] [place], [place] [phone] documented as of this encounter
--- OUTSIDE RECORDS SUMMARY | 2022-03-20 16:21 | XMS_ITS | Encounter Summary ---
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 documented as of this encounter Progress Notes Jovan Soto MD - 09/07/2005 12:01 AM CST Progress Notes signed by Jovan Soto MD at 09/07/05 1200 Author: Jovan Soto MD Service: (none) Author Type: Physician Filed: 10/14/10 1017 Note Time: 09/07/05 0001 Status: Signed Manager Pharmaceutical: Jovan Soto MD (Physician) NAME: IGGY DUARTE MR: [id number] ACCT: [id number] VISIT: [id number] DICTATING CLINICIAN: JOVAN SOTO MD JOB: [id number] CLINIC PROGRESS NOTE DATE OF VISIT: 09/07/2005 SUBJECTIVE: The patient is a 30-year-old, right-hand dominant woman who is seen for evaluation of left wrist pain. She has had a history of a cyst on the dorsum of her left wrist for the past couple of years. Her symptoms are intermittent. She notes that the swelling increases and the pain increases when she is more active. During the summer months, she spends time showing horses. This activity will clearly aggravate her symptoms. Pain is alleviated by rest and ibuprofen. She has had no treatment. OBJECTIVE: On the dorsal radial aspect of the left wrist, there is a 1.5 cm cystic swelling consistent with a ganglion cyst. ASSESSMENT: Ganglion cyst, left wrist. PLAN: We discussed treatment options, specifically surgical excision. This would be done under a regional anesthetic as an outpatient procedure. Details of the procedure, risks and benefits were discussed with her today. [id number] C: 09/07/05 10:31 DOCUMENT: [id number] MEASUREMENT ENGINEER documented in this encounter Plan of Treatment Upcoming Encounters Date Type Specialty Care Team Description 05/05/2022 Appointment Chemo Therapy/Infusion Services 09/15/2022 Telemedicine Gastroenterology Eusebio Haines MD [address] [place] [address] (Wo rk) documented as of this encounter Visit Diagnoses Not on filedocumented in this encounter Care Teams Competency Evaluated Nurse Aide Relationship Specialty Start Date End Date Munira Combs PA-C PCP - General 09/25/10 03/14/15 [address] [place] [address] documented as of this encounter
--- OUTSIDE RECORDS SUMMARY | 2022-03-20 16:21 | XMS_ITS | Encounter Summary ---
:1975 Author Organization [employer] Address [address], [place] [address] Care Team Providers Name Role Phone Munira Combs PA-C Primary Care Provider Encounter Details Date Type Department Care Team Description 01/03/2005 Procedure Visit [facility] Edwardo Leon [address] [place] [address] Social History Tobacco Use Types Packs/Day Years Used Date Smoking Tobacco: Never Assessed Sex Assigned at Date Recorded Female 05/09/2021 7:19 PM SOUBRETTE documented as of this encounter Progress Notes Edwardo Mccarty - 01/03/2005 12:01 AM CDT Procedures signed by Edwardo Mccarty MD at 01/03/05 1035 Author: Edwardo Mccarty MD Service: (none) Author Type: Physician Filed: 10/14/10 0524 Note Time: 01/03/05 0001 Status: Signed Content Production Specialist: Edwardo Mccarty MD (Physician) Flexible Sigmoidoscopy SUBJECTIVE: Patient is being seen for flexible sigmoidoscopy examination. The reason for the exam is: Routine screening, Abdominal pain Written informed consent was obtained from the patient, after explaining the risks and benefits of the exam. EXAMINATION: Digital rectal exam was performed. No rectal abnormalities were palpable. Flexible sigmoidoscopy exam, including retroversion, was performed to 60 cm, without difficulty. Bowel prep was good. FINDINGS: Normal flexible sigmoidoscopy to 60 cm. RECOMMENDATIONS: Patient should continue to have routine screening consistent with age and current guidelines. High fiber program discussed with patient Patient was given educational materials regarding increased dietary fiber *SH~PC~FLEXSIG ~Shorthand Note created on: 01/03/2005 10:38 AM RETTE documented in this encounter Plan of Treatment Upcoming Encounters Date Type Specialty Care Team Description 05/05/2022 Appointment Chemo Therapy/Infusion Services 09/15/2022 Telemedicine Gastroenterology Eusebio Haines MD [address] [place] [address] (Wo rk) documented as of this encounter Visit Diagnoses Not on filedocumented in this encounter Care Teams Connie Scratcher Relationship Specialty Start Date End Date Munira Combs PA-C PCP - General 09/25/10 03/14/15 [address] [place] [address] documented as of this encounter
--- OUTSIDE RECORDS SUMMARY | 2022-03-20 16:21 | XMS_ITS | Encounter Summary ---
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 calling for results of pelvic US and sig flex done on 01/03 and 01/06. Continues to have abd. pain that wakes her at night. Is having 4-5 diarrhea stools per day. Has been taking Metamucil per Dr. Cohen suggestion but has not had any change in her stools. Asking if she can take something for pain. Tylenol and Advil do not help. Advised that she should be seen again but she would like to talk with you first. Please call her at [phone] after 1 p.m. (This is the pharmacy at the [facility] Created on 16Jan2005 12:19pm by ELEAZAR SOTO On 16Jan2005 3:04pm FLOYD DELACRUZ wrote: Please ask her to make a follow-up appt with me. Acknowledged by FLOYD DELACRUZ on 3:04pm On 16Jan2005 3:22pm CESAR INTERIANO wrote: Call to pt at above given phone number, pt not available, message left for pt that I will try to call back again shortly. Acknowledged by CESAR INTERIANO on 3:22pm ITY ARBORIST documented in this encounter Plan of Treatment Upcoming Encounters Date Type Specialty Care Team Description 05/05/2022 Appointment Chemo Therapy/Infusion Services 09/15/2022 Telemedicine Gastroenterology Eusebio Haines MD [address] [place] [address] (Wo rk) documented as of this encounter Visit Diagnoses Not on filedocumented in this encounter Care Teams Tower Operator Relationship Specialty Start Date End Date Munira Combs PA-C PCP - General 09/25/10 03/14/15 [address] [place], [place] [phone] documented as of this encounter
--- OUTSIDE RECORDS SUMMARY | 2022-03-20 16:21 | XMS_ITS | Encounter Summary ---
:1975 Author Organization [employer] Address [address] [address] Care Team Providers Name Role Phone Munira Combs PA-C Primary Care Provider Encounter Details Date Type Department Care Team Description 06/08/2005 PN Conversion Only [place] Justin Lutz PA-C [address] [place] [address] [place] [address] (Wo rk) Social History Tobacco Use Types Packs/Day Years Used Date Smoking Tobacco: Never Assessed Sex Assigned at Date Recorded Female 05/09/2021 7:19 PM MOBILE QA TESTER documented as of this encounter Plan of Treatment Upcoming Encounters Date Type Specialty Care Team Description 05/05/2022 Appointment Chemo Therapy/Infusion Services 09/15/2022 Telemedicine Gastroenterology Eusebio Haines MD [address] [place], [place] [address] (Wo rk) documented as of this encounter Procedures Procedure Name Priority Date/Time Associated Comments Diagnosis URINALYSIS COMPLETE Routine 06/08/2005 12:00 PM R esults for this MOBILE QA TESTER procedure are i n the results section. CREATININE / GFR Routine 06/08/2005 12:00 PM Resu lts for this MOBILE QA TESTER procedure are i n the results section. ANTI-STREPTOLYSIN O Routine 06/08/2005 12:00 PM R esults for this MOBILE QA TESTER procedure are i n the results section. ALT (SGPT) Routine 06/08/2005 12:00 PM Results for this MOBILE QA TESTER procedure are i n the results section. AST Routine 06/08/2005 12:00 PM Results for this MOBILE QA TESTER procedure are i n the results section. BUN Routine 06/08/2005 12:00 PM Results for this MOBILE QA TESTER procedure are i n the results section. ALBUMIN Routine 06/08/2005 12:00 PM Results for this MOBILE QA TESTER procedure are i n the results section. documented in this encounter Results (ABNORMAL) Urinalysis Complete (06/08/2005 12:00 PM MOBILE QA TESTER) Patholo gist Method Time Signature Glucose, Negative Neg-Trac HP CONVERSION Qualitative U Protein Urine Negative Neg-Trac HP CONVERSION Ketones Negative Negative HP CONVERSION U BILI Negative Negative HP CONVERSION U Specific 1.025 1.005 - 25 HP CONVERSION [place] Blood Urine Moderate Negative HP CONVERSION (A) pH Urine 7.5 4.5 - 7.5 HP CONVERSION Urobilinogen Negative 0.2 - 1.0 HP CONVERSION Urine Nitrite Urine Negative Negative HP CONVERSION Leukocyte Small (A) Negative HP CONVERSION Esterase Urine White Blood 10-24/HP 0 - 3 HP CONVERSION Cells Urine (A) Red Blood Cells 5-9/HPF (A) 0 - 2 HP CONVERSIO N Urine Bacteria Urine Few (A) None HP CONVERSION Urine Mucus Large None HP CONVERSION Epithelial Cells Few Few /HPF HP CONVERSION Specimen (Source) Anatomical Collection Method Collection Time Re ceived Time Location / / Volume Laterality 06/08/2005 12:00 PM MOBILE QA TESTER Justin Dunaway PA-C LAB_1 Performing Organization Address City/State/ZIP Code Phon e Number HP CONVERSION Anti-Streptolysin O (06/08/2005 12:00 PM MOBILE QA TESTER) Analysis Performed At Patho logist Time Signature Streptolysin O 176 0 - 330 HP CONVERSION Antibody IU/mL Specimen (Source) Anatomical Collection Method Collection Time Re ceived Time Location / / Volume Laterality 06/08/2005 12:00 PM MOBILE QA TESTER Justin Dunaway PA-C LAB_1 Performing Organization Address City/State/ZIP Code Phon e Number HP CONVERSION Creatinine / GFR (06/08/2005 12:00 PM MOBILE QA TESTER) P athologist Signature Creatinine 0.7 0.5 - 1.5 HP CONVERSION Serum mg/dL Specimen (Source) Anatomical Collection Method Collection Time Re ceived Time Location / / Volume Laterality 06/08/2005 12:00 PM MOBILE QA TESTER Justin Dunaway LUPILLOZitaC LAB_1 Performing Organization Address City/State/ZIP Code Phon e Number HP CONVERSION BUN (06/08/2005 12:00 PM MOBILE QA TESTER) athologist Signature Blood Urea 8 5 - 26 HP CONVERSION Nitrogen mg/dL Specimen (Source) Anatomical Collection Method Collection Time Re ceived Time Location / / Volume Laterality 06/08/2005 12:00 PM MOBILE QA TESTER Justin King Gume [place]-C LAB_1 Performing Organization Address City/State/ZIP Code Phon e Number HP CONVERSION AST (06/08/2005 12:00 PM MOBILE QA TESTER) [facility] Method Time Signature Aspartate 18 0 - 45 HP CONVERSION Aminotransferase U/L Specimen (Source) Anatomical Collection Method Collection Time Re ceived Time Location / / Volume Laterality 06/08/2005 12:00 PM MOBILE QA TESTER Justin King Gume [place]-C LAB_1 Performing Organization Address City/[facility]/ZIP Code Phon e Number HP CONVERSION ALT (SGPT) (06/08/2005 12:00 PM MOBILE QA TESTER) [facility] Method Time Signature Alanine 29 0 - 65 HP CONVERSION Aminotransferase U/L Specimen (Source) Anatomical Collection Method Collection Time Re ceived Time Location / / Volume Laterality 06/08/2005 12:00 PM MOBILE QA TESTER Justin King Gume [place]-C LAB_1 Performing Organization Address City/[facility]/ZIP Code Phon e Number HP CONVERSION Albumin (06/08/2005 12:00 PM MOBILE QA TESTER) athologist Signature Albumin 3.4 3.0 - 5.0 HP CONVERSION g/dL Specimen (Source) Anatomical Collection Method Collection Time Re ceived Time Location / / Volume Laterality 06/08/2005 12:00 PM MOBILE QA TESTER Justin King Gume [place]-C LAB_1 Performing Organization Address City/State/ZIP Code Phon e Number HP CONVERSION documented in this encounter Visit Diagnoses Not on filedocumented in this encounter Care Teams Asset Protection Lead Relationship Specialty Start Date End Date Munira Combs PA-C PCP - General 09/25/10 03/14/15 [address] [place] [address] documented as of this encounter
--- OUTSIDE RECORDS SUMMARY | 2022-03-20 16:21 | XMS_ITS | Encounter Summary ---
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 LW Addl tablet Instr:Patient is to take active (first 21) pills daily, then discard the inactive pills (last 7), and immediately begin the active pills in the next package. She will be taking the pills in a continuous fashion. Dr. Bazzi amitriptyline (AKA Take 1-2 tablets by 60 3 05/08/20 05 07/04/2010 ELAVIL) 25 MG tablet mouth nightly. amitriptyline (AKA Take 1-2 tablets by 60 3 05/08/20 05 07/04/2010 ELAVIL) 25 MG tablet mouth nightly. UNKNOWN MEDICATION Indications: PN: 0 09/20/2005 09/05/2010 UNKNOWN MEDICATION Indications: PN: 0 06/08/2005 09/05/2010 UNKNOWN MEDICATION Indications: PN: 0 12/22/2004 09/05/2010 UNKNOWN MEDICATION Indications: PN: 0 11/22/2004 09/05/2010 documented as of this encounter Procedure Notes Jovan Soto MD - 09/22/2005 12:01 AM CST OR Surgeon signed by Jovan Soto MD at 10/01/05 2186 Author: Jovan Soto MD Service: (none) Author Type: Physician Filed: 10/14/10 1037 Note Time: 09/22/05 1553 Status: Signed Resident Manager: Jovan Soto MD (Physician) NAME: IGGY DUARTE MR: [id number] ACCT: [id number] AUTHENTICATING CLINICIAN: JOVAN SOTO MD JOB: [id number] OPERATIVE REPORT DATE OF OPERATION: 09/22/05 INDICATIONS FOR PROCEDURE: This 30-year-old woman presented with a cyst on the dorsum of her left wrist. After discussion of treatment options, benefits and risks, she elected to proceed with surgical excision. PREOPERATIVE DIAGNOSIS: Left wrist ganglion cyst. POSTOPERATIVE DIAGNOSIS: Left wrist ganglion cyst. PROCEDURE PERFORMED: Cyst excision, left wrist. SURGEON: JOVAN SOTO MD COREMAKER HELPER: CLARITA MUNOZ ANESTHESIA: Joan block. BLOOD LOSS: Minimal. COMPLICATIONS: None. FINDINGS: DESCRIPTION OF OPERATION: Informed consent was obtained. A Peetz block anesthetic was placed and the left upper extremity was prepped and draped sterilely. A 2-cm incision was made transversely at the level of the cyst dissecting through the subcutaneous tissues to expose a typical ganglion cyst. It was dissected down to its attachment on the dorsal wrist capsule and excised with a portion of the capsule at that point. The wound was then closed and sterile dressings were applied. The Peetz block anesthetic was released and the patient was taken to recovery in stable condition. Sponge and needle counts were correct. Blood loss was minimal. There were no complications. MKT:[id number] C: 09/25/05 08:31 DOCUMENT: [id number] documented in this encounter Miscellaneous Notes Miscellaneous - Jovan Soto MD - 09/22/2005 12:01 AM CST ICD-9-CM ICD-9-CM Narrative description Code ======== DIAGNOSES Principal: GANGLION OF JOINT 727.41 PROCEDURES Provider1 Date Principal: EXC LES TEND SHEATH HAND JOVAN SOTO [id number] 82.21 Provider2: Provider3: KLEVER LOPEZ III AVEMENT COORDINATOR documented in this encounter Plan of Treatment Upcoming Encounters Date Type Specialty Care Team Description 05/05/2022 Appointment Chemo Therapy/Infusion Services 09/15/2022 Telemedicine Gastroenterology Eusebio Haines MD [address] [place] [address] (Wo rk) documented as of this encounter Visit Diagnoses Not on filedocumented in this encounter Care Teams Pediatric Registered Nurse Relationship Specialty Start Date End Date Munira Combs PA-C PCP - General 06/30/04 09/24/10 [address] [place] [address] documented as of this encounter
--- OUTSIDE RECORDS SUMMARY | 2022-03-20 16:21 | XMS_ITS | Encounter Summary ---
:1975 Author Organization [employer] Address [address] [address] Care Team Providers Name Role Phone Munira Combs PA-C Primary Care Provider Encounter Details Date Type Department Care Team Description 06/08/2005 Office Visit Justin Younger PA-C [facility] [facility] [place] [address] [place] [address] [phone] (Wo rk) Social History Tobacco Use Types Packs/Day Years Used Date Smoking Tobacco: Never Assessed Sex Assigned at Date Recorded Female 05/09/2021 7:19 PM ANNOUNCER documented as of this encounter Last Filed Vital Signs Vital Sign Reading Time Taken Comments Blood Pressure 110/80 06/08/2005 11:23 AM ANNOUNCER Pulse 64 06/08/2005 11:23 AM ANNOUNCER Temperature - - Respiratory Rate - - Oxygen Saturation - - Inhaled Oxygen Concentration - - Weight 85.3 kg (187 lb 15.8 oz) 06/08/2005 11:23 AM C: 85.3kg ANNOUNCER Height - - Body Mass Index - - documented in this encounter Progress Notes Justin Dunaway PA-C - 06/08/2005 12:01 AM CST Progress Notes signed by Justin Dunaway PA-C at 06/09/05 1103 Author: Justin Dunaway PA-C Service: (none) Author Type: Physician Jump Roll Operator Filed: 10/14/10 0824 Note Time: 06/08/05 0001 Status: Signed Bean Picker: Justin Dunaway PA-C (Physician Jump Roll Operator) NAME: IGGY DUARTE MR: [id number] ACCT: [id number] VISIT: [id number] DICTATING CLINICIAN: JUSTIN DUNAWAY PA-C JOB: [id number] CLINIC PROGRESS NOTE DATE OF VISIT: 06/08/2005 SUBJECTIVE: This 30-year-old presents today with swollen ankles and fingers since about this past weekend. She relates that she was in [place], was walking around with jeans on and felt burning discomfort in bilateral lower extremities mainly on the posterior sides of the calves. When she changed into shorts, her friends noted that her legs were bright red. They were a little bit itchy and again burned. Said anytime something bumped against her legs it felt like needles were stabbing her legs. She did not treat this in any specific way. When she got back the redness was dissipating. Three days ago she showed it one of our nurse who saw that it was improving, and now the redness is completely resolved. However, she continues to have swelling and achiness in both legs. She also notes that she cannot get her rings off of her fingers. She has noticed no other swelling such as in her face. She, otherwise, has been feeling well. No recent illness. No recent strep infection. No sore throat or upper respiratory infection symptoms. No fevers or chills. No other rashes other than just on the lower legs. Urination has been normal. No decreased amount of urination. No dysuria, hematuria, or increased frequency of urination. She denies any possibility of at this time. MEDICATIONS: She is on Ortho Evra Patch and is somewhat concerned about blood clots. She has smoked just socially over the last couple of weeks especially while in [place]; otherwise, does not smoke on a regular basis. She has never had DVTs or PEs before, and they do not run in her family. She has had no flank pain, no abdominal pain, no nausea, vomiting, diarrhea or other stool changes. No chest pain, shortness of breath, or rapid heart rate. Energy level is normal. Appetite has been normal. No unusual weight gain or loss. PAST MEDICAL HISTORY: Significant for irritable bowel syndrome, currently quiescent and pelvic pain ? CURRENT MEDICATIONS: Reviewed today in [facility]. ADR/ALLERGIES: REVIEWED TODAY IN [facility]ST[facility]. Tobacco Use: Social. REVIEW OF SYSTEMS: Complete review of systems is reviewed and otherwise negative. OBJECTIVE: VS: BP: 110/80. P: 64, radial. Wt: 188 lb. Pleasant, alert, oriented. Appears in no distress. She walks without limp. No other gait abnormality. Bilateral TMs, EACs clear. Eyes PERRLA. Oropharynx moist. Posterior pharynx without erythema, tonsillar hypertrophy, or exudate. NECK: Supple without adenopathy or thyromegaly. LUNGS: Clear. HEART: Regular rate and rhythm. No murmurs, gallops or rubs seated or supine. ABDOMEN: Soft. Nontender. No organomegaly or masses palpable. LOWER EXTREMITIES: With edema to the mid calf. Nonpitting. Distal pulses are completely intact. Skin is intact and normal. She has no tenderness with palpation over the calves. No ropy or indurated vessels. Batsheva sign negative bilaterally. Distal light touch is completely intact. ASSESSMENT: Pedal edema. PLAN: Chest x-ray PA and lateral. ALT, AST, albumin, UA, BUN, creatinine, and ASO titer will be drawn. She will be notified when labs are resulted. For symptomatic relief advised wrapping the legs, toes to knees, in a [id number] elastic wrap. She is to keep that on. Will rewrap it for her tomorrow if she needs us to. Elevate the legs whenever seated and should not stand still in 1 spot. She should always be moving around or sitting with her legs elevated. She verbalizes good understanding of an agreement to this plan. FINAL IMPRESSION: Pedal edema. JLS:[id number] C: 06/09/05 10:37 DOCUMENT: [id number] UNCER documented in this encounter Plan of Treatment Upcoming Encounters Date Type Specialty Care Team Description 05/05/2022 Appointment Chemo Therapy/Infusion Services 09/15/2022 Telemedicine Gastroenterology Eusebio Haines MD [address] [place] [address] (Wo rk) documented as of this encounter Procedures Procedure Name Priority Date/Time Associated Diagnosis Comme nts XR CHEST 2 VIEWS Routine 06/08/2005 12:06 PM Resu lts for this ANNOUNCER procedure are i n the results section. documented in this encounter Results XR Chest 2 Views (06/08/2005 12:06 PM ANNOUNCER) Anatomical Region Laterality Modality Chest, Lung Other Specimen (Source) Anatomical Location Collection Method / Collectio n Time Received Time / Laterality Volume Narrative 06/08/2005 12:06 PM ANNOUNCER Impression: Normal chest. Findings: CH1 The cardiovascular structures appear nor mal. ??No evidence of active pulmonary disease. Dictating MICHELLE MALCOLM RADIOLOGIST Procedure Note Michelle Black - 08/31/2016 Impression: Normal chest. Findings: CH1 The cardiovascular structures appear nor mal. No evidence of active pulmonary disease. Dictating MICHELLE MALCOLM RADIOLOGIST Justin Dunaway PA-C RAD GD documented in this encounter Visit Diagnoses Not on filedocumented in this encounter Care Teams Otolaryngology Nurse Relationship Specialty Start Date End Date Munira Combs PA-C PCP - General 09/25/10 03/14/15 [address], [place] [id number] documented as of this encounter
--- OUTSIDE RECORDS SUMMARY | 2022-03-20 16:21 | XMS_ITS | Encounter Summary ---
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 documented in this encounter Results US Pelvic Complete W EV (01/06/2005 9:16 AM CDT) Anatomical Region Laterality Modality Pelvis Other Specimen (Source) Anatomical Location Collection Method / Collectio n Time Received Time / Laterality Volume Narrative 01/06/2005 9:16 AM CDT Transabdominal and transvaginal images were obtained. ??The uterus is retroverted and measures 8.4 x 4.7 x 5.5 cm. ??Endometrial stripe is homogeneous measuring 8.3 mm. ??No polyp or fibroids. ??Both ovaries are normal. ??Small fluid seen at the cu l-de-sac. [id number] Dictating MANPREET BUTT RADIOLOGIST Procedure Note Manpreet House MD - 08/31/2016 Transabdominal and transvaginal images w ere obtained. The uterus is retroverted and measures 8.4 x 4.7 x 5.5 cm. Endometrial stripe is homogeneous measuring 8.3 mm. No polyp o r fibroids. Both ovaries are normal. Small fluid seen at the cul- de-sac. [id number] Dictating MANPREET BUTT RADIOLOGIST Paco Bazzi MD [facility] documented in this encounter Visit Diagnoses Not on filedocumented in this encounter Care Teams Business Relations Manager Relationship Specialty Start Date End Date Munira Combs PA-C PCP - General 09/25/10 03/14/15 [address] [place] [address] documented as of this encounter
--- OUTSIDE RECORDS SUMMARY | 2022-03-20 16:21 | XMS_ITS | Encounter Summary ---
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 documented as of this encounter Last Filed Vital Signs Vital Sign Reading Time Taken Comments Blood Pressure 122/68 12/22/2004 8:32 AM CDT Pulse 80 12/22/2004 8:32 AM CDT Temperature - - Respiratory Rate 20 12/22/2004 8:32 AM CDT Oxygen Saturation - - Inhaled Oxygen Concentration - - Weight 85 kg (187 lb 7.7 oz) 12/22/2004 8:32 AM CDT C: 85.0kg Height - - Body Mass Index - - documented in this encounter Progress Notes Elsa Lopes APRN, TINNER HELPER - 12/22/2004 12:01 AM CDT Progress Notes signed by MICHAEL Garduno at 02/21/05 1762 Author: MICHAEL Garduno Service: (none) Author Type: (none) Filed: 10/14/10 0513 Note Time: 12/22/042022 Status: Signed Foundation Relations Manager: MICHAEL Garduno (Nurse Practitioner) NAME: IGGY DUARTE MR: [id number] ACCT: [id number] VISIT: [id number] DICTATING CLINICIAN: ELSA LOPES RN,TINNER HELPER JOB: [id number] CLINIC PROGRESS NOTE DATE OF VISIT: 12/22/2004 SUBJECTIVE: : 1975. CC: A 29-year-old female in clinic for low pelvic pain. HISTORY OF PRESENT ILLNESS: Her pelvic pain has been rather chronic but intermittent. She was diagnosed in 09/2001 with irritable bowel syndrome. Given Bentyl at that time. She says she has not required use of it very much at all until the last two weeks. She is currently taking the Bentyl about every 4 to 6 hours. Her last episode of the low abdominal pain occurred 5 days ago. She is currently very comfortable and denies pain. She describes the pain as being crampy in nature. It only lasts for a matter of minutes to an hour, depending on when she takes the Bentyl. It is relieved with the use of Bentyl. She has had no change in her bowel habits. She denies diarrhea or constipation. Her last movement was last night and it was normal. She does not have pain with her bowel movements. No mucus or blood noted in stools. She denies pain, urgency, and frequency of urination. She is sexually active in a monogamous relationship with her . Her last menstrual period was 11/29. She cycles quarterly. She has a history of dysmenorrhea. She has noted that she has some increased vaginal discharge. It does not have foul odor or discoloration. She has recently seen the retail visual merchandiser for evaluation of this low pelvic pain and had a pelvic ultrasound scheduled in December. She says that she is not really under a lot of stress but she does show horses on the weekends and recognizes that though it is fun for her, there is increased stress in her life associated with that hobby. She has also changed her diet recently, increasing the fruits and vegetables in her diet. At its' worse, she says the pain is about a level 8 or 9. It can double her over and she can have accompanying nausea and vomited on one occasion. She denies fever, chilling, and body aches. She has not been out of the country. PAST MEDICAL HISTORY: Irritable bowel syndrome and pelvic pain. CURRENT MEDICATIONS: Marezine PSE. Ortho-Evra. Dicyclomine 20 mg, one p.o. q.i.d. p.r.n. ADR/ALLERGIES: NONE KNOWN. SOCIAL HISTORY: As above, . 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 Is a smoker. OBJECTIVE: VS: BP: 122/68. P: 80. R: 20. Wt: 187 lb. Gigy appears very well, upbeat, alert and oriented. SKIN: Warm, dry, and non-diaphoretic and non-flushed. LUNGS: Clear. CARDIOVASCULAR: S1, S2 rate and rhythm regular. ABDOMEN: Round. Active bowel sounds. Entirely soft and nontender today. PELVIC: No external lesions. Vagina is pink, smooth, and moist. No abnormal vaginal discharge. Cervix is round, ectropion in appearance. Mobile. Nontender. Uterus and adnexa without fullness or pain. Gen-probe and TNY collected with patient's consent. LABORATORY: TNY is negative for trich, yeast, and clue cells. ASSESSMENT: Probable flare of irritable bowel syndrome. PLAN: She will have a flexible sigmoidoscopy scheduled as she has not previously had one. I have encouraged her to pay attention to her diet to determine whether or not there are exacerbations with particular foods such as the raw fruits and vegetables. Advised to use the Bentyl no more than 4 times a day. Will follow up when flexible sigmoidoscopy available for review. LAE:[id number] C: 12/22/04 16:10 DOCUMENT: [id number] documented in this encounter Plan of Treatment Upcoming Encounters Date Type Specialty Care Team Description 05/05/2022 Appointment Chemo Therapy/Infusion Services 09/15/2022 Telemedicine Gastroenterology Eusebio Haines MD [address] [place], [place] [address] (Wo rk) documented as of this encounter Visit Diagnoses Not on filedocumented in this encounter Care Teams Curriculum Advisory Teacher Relationship Specialty Start Date End Date Munira Combs PA-C PCP - General 09/25/10 03/14/15 [address] [place] [address] documented as of this encounter
--- OUTSIDE RECORDS SUMMARY | 2022-03-20 16:22 | XMS_ITS | Encounter Summary ---
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 documented in this encounter Results [facility] ECHOCARDIOGRAM REAL TIME SCAN C (08/08/2001 11:04 AM SPARKER AND PATCHER) Specimen (Source) Anatomical Collection Method Collection Time Re ceived Time Location / / Volume Laterality 08/08/2001 11:04 AM SPARKER AND PATCHER Narrative HP CONVERSION - 08/08/2001 11:04 AM SPARKER AND PATCHER ?Normals ?Normals LV(d) 46 ??mm (37-56) RV (d) ? m m(07-26) E ? cm/sec (70-102) LV(s) 32 ??mm (23-34) Ao. ??Root 26 mm( 20-37) A ? cm/sec (43- 69) Septum 8 ??mm (12-03) LA ?33 mm(19-40) E:A ? ratio (1.1-2.1) LV Wall 8 mm (12-03) RAKAN ? cm^2 ?DT ?ms ?? (167-231) EF ?% ??(>55%) ??MVA ?cm^2 ?RV/RA Grad ?mmHg FS ?30 ??% ??(>25%) ??Mean Ao Grad ? mmHg ??Est RA Pres The above measurements are done in the two-dimensional view. Ht.: ??5'7 ? Wt.: ??162 INDICATION FOR EXAM: Murmur. This study included two-dimensional echo , pulse, continuous wave and color Doppler. CONCLUSION: Normal study. GENERAL COMMENTS: ??Good quality M-mode and two-dimensional were performed and interpreted. ??Adequate qu ality pulse continuous wave and color Doppler was performed and interpre teresa. ??The patient's rhythm is sinus. VENTRICLES: ??Normal left ventricular ch tayler size, wall motion and wall thickness. ??Global and regional le ft ventricular function is normal. ??The right ventricle is normal. ATRIA: ??Both atria appear normal. VALVES: ??All four valves are normal. Tr rush mitral insufficiency is present. GREAT VESSELS: ??The aortic root is norm al. ??The pulmonary artery cannot be assessed. ??The inferior vena cava is normal. PERICARDIUM: ??No pericardial effusion i s present. Noemí Kuhn MD PN ECHO ORDERABLES Performing Organization Address City/State/ZIP Code Phon e Number HP CONVERSION documented in this encounter Visit Diagnoses Not on filedocumented in this encounter
--- OUTSIDE RECORDS SUMMARY | 2022-03-20 16:22 | XMS_ITS | Encounter Summary ---
:1975 Author Organization [employer] Address [address] [address] Care Team Providers Name Role Phone Munira Combs PA-C Primary Care Provider Reason for Visit Reason Comments Other Encounter Details Date Type Department Care Team Description 07/21/2004 Telephone [facility] [address] Morales RN Other Ophthalmology [facility] [address] 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 Vision is normal now. Recommended evaluation; told her to schedule with one of the Dr's at her site. She agreed. Created on 21Jul2004 9:01am by DUSTY MORALES documented in this encounter Plan of Treatment Upcoming Encounters Date Type Specialty Care Team Description 05/05/2022 Appointment Chemo Therapy/Infusion Services 09/15/2022 Telemedicine Gastroenterology Eusebio Haines MD [address] [place], [place] [address] (Wo rk) documented as of this encounter Visit Diagnoses Not on filedocumented in this encounter Care Teams Health Commissioner Relationship Specialty Start Date End Date Munira Combs PA-C PCP - General 09/25/10 03/14/15 [address] [place] [id number] documented as of this encounter
--- OUTSIDE RECORDS SUMMARY | 2022-03-20 16:22 | XMS_ITS | Encounter Summary ---
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 ANATOMICAL PATH Routine 11/30/2003 1:58 PM Result s for this LIQUID BASED CDT procedure are i n the results section. documented in this encounter Results Wet [facility] (11/30/2003 2:25 PM CDT) [facility] gist Method Time Signature Wet Prep Park . No normal HP CONVERSION [facility] Wet Prep Trich Negative No normal HP CONVERSION [facility] Comment: SWAB ONLY RECIEVED. Wet Prep WBC [facility] Few No normal range HP CONVERSION Wet Prep Bacteria [facility] Moderate No normal range HP CONVERSION Wet Prep Clue Cells [place] Negative No normal range HP CONVERSION Wet Prep Yeast [facility] Negative No normal range HP CONVERSION Wet Prep Amine [facility] Negative No normal range HP CONVERSION Specimen (Source) Anatomical Collection Method Collection Time Re ceived Time Location / / Volume Laterality 11/30/2003 2:25 PM CDT Miguelangel Whitmore MD LAB_1 Performing Organization Address City/State/ZIP Code Phon e Number HP CONVERSION Pap Smear (11/30/2003 1:58 PM CDT) [facility] gist Method Time Signature PAP Smear SEE TEXT No normal HP CONVERSION Liquid Based range Comment: Patient: IGGY DUARTE ? CERVICAL CYTOLOGY REPORT Pathology # ??[id number] ?Date Obtained: ? Date Received: CYTOLOGIC IMPRESSION: Negative for intraepithelial lesion or m alignancy. ? CELSO TIONAL DATA LMP: ?10-26-03 CLINICAL HIST ? PREV NORM 1-02 LIQUID BASED PAP CERVICAL SPECIMEN ADEQUACY: ?? Satisfactory. ENDOCERVICAL CELLS: ??Present. Verified 12/08/03 by: ??SN ? (electronic signature) Specimen (Source) Anatomical Collection Method Collection Time Re ceived Time Location / / Volume Laterality 11/30/2003 1:58 PM CDT Miguelangel Whitmore MD LAB_1 Performing Organization Address City/State/ZIP Code Phon e Number HP CONVERSION documented in this encounter Visit Diagnoses Not on filedocumented in this encounter Care Teams Oil Expeller Relationship Specialty Start Date End Date Munira Combs PA-C PCP - General 09/25/10 03/14/15 [address] [place] [address] documented as of this encounter
--- OUTSIDE RECORDS SUMMARY | 2022-03-20 16:22 | XMS_ITS | Encounter Summary ---
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
--- OUTSIDE RECORDS SUMMARY | 2022-03-20 16:22 | XMS_ITS | Encounter Summary ---
:1975 Author Organization [employer] Address [address] [address] Care Team Providers Name Role Phone Munira Combs PA-C Primary Care Provider Encounter Details Date Type Department Care Team Description 05/12/2004 Nursing Visit [facility] Ivan Neely MD [address] [place] [address] [place] [address] [place] [address] [phone] (Wo rk) Social History Tobacco Use Types Packs/Day Years Used Date Smoking Tobacco: Never Assessed Sex Assigned at Date Recorded Female 05/09/2021 7:19 PM [employer] DEAN documented as of this encounter Plan of Treatment Upcoming Encounters Date Type Specialty Care Team Description 05/05/2022 Appointment Chemo Therapy/Infusion Services 09/15/2022 Telemedicine Gastroenterology Eusebio Haines MD [address] [place] [address] (Wo rk) documented as of this encounter Visit Diagnoses Not on filedocumented in this encounter Care Teams Shingle Catcher Relationship Specialty Start Date End Date Munira Combs PA-C PCP - General 09/25/10 03/14/15 [address] [place], [place] [phone] documented as of this encounter
--- OUTSIDE RECORDS SUMMARY | 2022-03-20 16:22 | XMS_ITS | Encounter Summary ---
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 documented as of this encounter Progress Notes Ilya Mendoza MD - 12/19/2004 12:01 AM CDT Progress Notes signed by Ilya Mendoza MD at 01/25/05 1245 Author: Ilya Mendoza MD Service: (none) Author Type: Physician Filed: 10/14/10 0509 Note Time: 12/19/04 0001 Status: Signed Technology Applications Consultant: Ilya Mendoza MD (Physician) NAME: IGGY UDARTE MR: [id number] ACCT: [id number] VISIT: [id number] DICTATING CLINICIAN: ILYA MENDOZA MD JOB: [id number] CLINIC PROGRESS NOTE DATE OF VISIT: 12/19/2004 SUBJECTIVE: The patient is a 29-year-old white female, G0, with LMP 11/29/04, who is seen for problems with lower abdominal and pelvic pain. The patient reports that she was originally diagnosed with similar symptoms approximately three years ago. An evaluation including a pelvic ultrasound was performed at that time which was unremarkable. This patient was diagnosed as having bowel spasms and was placed on dicyclomine with good results. However, over the past few weeks, the patient has had increasing pain and has been taking her dicyclomine as often as every four hours with no lasting relief. The patient reports that she has been on Ortho Evra patches which she uses in a fashion so that she has menses on a quarterly basis. The patient has minimal breakthrough bleeding on this preparation. The patient reports normal bladder function with no dysuria. She has regular bowel movements but reports that the stools are loose and that as a consequence she has also been taking Pepto Bismol frequently. MEDICATION: Limited to the Pepto Bismol, the dicyclomine, and the Ortho Evra patches. ADR/ALLERGIES: SHE HAS NO ALLERGIES. She is a nonsmoker. OBJECTIVE: VS: BP: 142/78. Wt: 182-1/2 lb. Examination of the lower abdomen shows some localized tenderness without rebound in both lower quadrants. There is no organomegaly or masses. External genitalia, BUS, and vagina are unremarkable. The cervix is nulliparous and without lesions. The uterus is retroflexed and minimally tender to palpation. It is normal size and contour. The adnexa are normal. ASSESSMENT: Lower abdominal and pelvic pain of uncertain etiology. History of bowel spasms. PLAN: 1. Hemoglobin, white count, electrolytes, AST, total bilirubin, urinalysis, urine HCG. 2. Pap. 3. Pelvic ultrasound. 4. Patient will be informed of results when available. If no evidence of gynecologic pathology is identified, the patient will be referred on to Internal Medicine for further evaluation. FINAL IMPRESSION: Abdominal and pelvic pain. DNA:[id number] C: 12/20/04 13:13 DOCUMENT: [id number] documented in this encounter Plan of Treatment Upcoming Encounters Date Type Specialty Care Team Description 05/05/2022 Appointment Chemo Therapy/Infusion Services 09/15/2022 Telemedicine Gastroenterology Eusebio Haines MD [address] [place] [address] (Wo rk) documented as of this encounter Visit Diagnoses Not on filedocumented in this encounter Care Teams Geographic Information Systems Manager Relationship Specialty Start Date End Date Munira Combs PA-C PCP - General 09/25/10 03/14/15 [address] [place], [place] [phone] documented as of this encounter
--- OUTSIDE RECORDS SUMMARY | 2022-03-20 16:22 | XMS_ITS | Encounter Summary ---
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
--- OUTSIDE RECORDS SUMMARY | 2022-03-20 16:22 | XMS_ITS | Clinical Summary ---
:1975 Author Organization [facility] Address [place] [address] Care Team Providers Name Role Phone Noemi Abernathy MD Primary Care Provider [phone] Allergies Not on File Medications Not on file Active Problems Not on file Social History Tobacco Use Types Packs/Day Years Used Date Never Assessed Sex Assigned at Date Recorded Not on file Plan of Treatment Health Maintenance Due Date Last Done Comments Tdap 1988 Depression screening for age 12+ 1989 BMI (ht and wt on same day) for age 18+ 1995 Hepatitis C screening for age 18-79 1995 Tetanus booster 1997 COVID-19 vaccine series (2 - Pfizer series) 04/13/202102/24 Influenza for age 9-49 02/23/2022 Pap test for age 21-65 02/12/2024 02/11/2021 Results Not on filefrom Last 3 Months Insurance Payer Benefit Plan / Subscriber ID Effective Dates Phone Addre ss Type Group PREFERRED ONE PREFERRED ONE [id number] 2020-Present [address] [place] [address] [phone] (Home) [place] [address] Care Teams Coordinator Of Library Services Relationship Specialty Start Date End Date Noemi Abernathy MD PCP - General Family Practice 04/15/21[address] [place] [address]
--- OUTSIDE RECORDS SUMMARY | 2022-03-20 16:22 | XMS_ITS | Encounter Summary ---
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
--- OUTSIDE RECORDS SUMMARY | 2022-03-20 16:22 | XMS_ITS | Encounter Summary ---
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 documented as of this encounter Progress Notes Miguel Ángel Schuster - 07/21/2004 12:01 AM CST Progress Notes signed by Miguel Ángel Schuster MD at 07/27/04 1349 Author: Miguel Ángel Schuster MD Service: (none) Author Type: Physician Filed: 10/14/10 0216 Note Time: 07/21/04 0001 Status: Signed [employer] Officer: Miguel Ángel Schuster MD (Physician) NAME: IGGY DUARTE MR: [id number] ACCT: [id number] VISIT: [id number] DICTATING CLINICIAN: MIGUEL ÁNGEL SCHUSTER MD JOB: [id number] CLINIC PROGRESS NOTE DATE OF VISIT: 07/21/2004 SUBJECTIVE: The patient is a 29-year-old female who notes this morning on her way in to work was seeing flashing lights and wavy lines, predominantly out of her right eye. This is something that has never happened before. She notes no numbness or tingling in her arms or legs. No weakness in her arms or legs. She would close her eyes, and she would see it in both visual monahan and then open, and it was primarily just in the right. She did shortly after arriving to work develop a headache, mainly behind her right eye. No nausea or vomiting. No light sensitivity that she notes. She took 800 mg of ibuprofen, and the headache has cleared and resolved. No visual disturbance or problems at this point. She has changed her control from oral pill to Ortho Evra patch back in April. No other med changes. She does have some chronic rhinitis that seems to be aggravated just at work here at the [facility] [employer] [employer] [facility] where she takes chlorphenamine on a daily basis when at work. Away from work, she does not seem to have any problems or difficulties. No fever or chills. Clear nasal drainage. No cough. MEDICATIONS: Ortho Evra patch. ADR/ALLERGIES: NONE. OBJECTIVE: VS: BP: 118/64. Patient alert in no acute distress. Tympanic membranes clear. Throat noninflamed, noninjected. No sinus facial tenderness present. Pupils equal, round, and reactive to light. Extraocular movements intact. Fundi benign. Cranial nerves II-XII intact. Normal rapid alternating movement, finger tapping and hands on thighs. NEURO EXAM: Nonfocal. HEART: Regular rhythm and rate with S1, S2. No murmurs. LUNGS: Clear to auscultation throughout. ASSESSMENT: Classic migraine with scintillating scotomata. PLAN: Reassured patient. If ibuprofen works, would have her continue to use that. If she finds it is ineffective, she should return to look at other abortive medications. She should return if she notes increasing frequency of these sorts of headaches where we need to consider prophylactic medication. She may, if this continues to be an issue or problem, want to talk to a provider about switching back to oral contraception. She denies any increased stress or other problems or difficulties. [facility]:[id number] C: 07/21/04 15:11 DOCUMENT: [id number] documented in this encounter Plan of Treatment Upcoming Encounters Date Type Specialty Care Team Description 05/05/2022 Appointment Chemo Therapy/Infusion Services 09/15/2022 Telemedicine Gastroenterology Eusebio Haines MD [address] [place] [address] (Wo rk) documented as of this encounter Visit Diagnoses Not on filedocumented in this encounter Care Teams General Farmworker Relationship Specialty Start Date End Date Munira Combs PA-C PCP - General 09/25/10 03/14/15 [address] [place] [address] documented as of this encounter
--- OUTSIDE RECORDS SUMMARY | 2022-03-20 16:22 | XMS_ITS | Encounter Summary ---
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 * WORK PHONE:[phone] * CURRENT MEDICATIONS... PERTINENT PAST HISTORY... ASSESSMENT: xenical rx DISPOSITION: NO DISPOSITION GIVEN PLAN: [facility] COMMENTS... msg left for pt to return call, pls relay msg that xenical and no othe r wt loss meds are covered by insurance. and if she would still like to get rx she will have to pay out of pocket. CALL BY [facility] 12/01/2003 02:42PM [phone] ADDENDUM: Miguelangel Whitmore MD - 11/30/2003 12:01 AM CDT Progress Notes signed by at 12/01/03 0818 Author: Miguelangel Whitmore MD Service: (none) Author Type: (none) Filed: 10/13/10 2213 Note Time: 11/30/03 0001 Status: Signed Gravel Weigher: Tam [facility] Preventive Exam & Pelvic IMPRESSION: Routine preventive exam. Obesity. Breakthrough bleeding between periods. SUBJECTIVE: Patient presents for a routine preventive physical and pelvic exam. Requests OCP change given breakthrough bleeding between periods. Requests prescription for Xenical for obesity. Pt follows low fat, low calorie diet and exercises on a daily basis without any weight loss. Current contraception: OCP's Past Medical History: No chronic medical problems. Pt. has never been No history of abnormal Pap smears Date of LMP: 10/26/2003 Other Medical/Surgical History: s/p Tonsillectomy. Adverse Drug Reactions: None Current Medications: Necon Family History (First degree family members): ASCVD. No breast CA. No colon CA. Social History: Occupation: [employer] Marital Status: . Habits Smoking: Socially only. Alcohol less than once weekly. Preventive Health Assessment: Exercise adequate. Review of Systems: With the exception of any items noted above, the remainder of complete ROS is negative. OBJECTIVE: Pulse: 76 Blood Pressure: 130/88 Weight: 173 lbs. Height: 67 in. General: Patient alert, in NAD. HEENT: PERRLA. Bilateral TM's, external 5canals, oropharynx normal. Neck: Supple, without thyromegaly or mass. CV: 6RRR without murmurs, rubs or gallops. Resp: Clear to auscultation without crackles, wheezes or distress. Heart: RR without murmurs, rubs or gallops. Breasts: Nontender, without masses, nipple discharge, erythema, or axillary adenopathy. Abdomen: Soft, non-tender, without hepatosplenomegaly, masses, or hernias. Pelvic: Normal external genitalia and urethra. [place], moist vaginal and cervical mucosa, without lesions. On bimanual exam, uterus is mobile, normal size, shape & consistency, with no uterine or adenexal masses appreciated Lymphatic: No neck, supraclavicular, axillary or groin lymphadenopathy. Lower extremities: FROM, normal gait, without lesions, edema or deformity. Skin: No lesions on inspection. Psychiatric: Alert & oriented with normal affect and insight, does not appear depressed or anxious. ASSESSMENT: Routine preventive exam. Obesity. Breakthrough bleeding between periods. PLAN: Follow-up in 1 year Pap smear. We will mail lab results to patient. Adult dT booster given Breast self exam recommended. Instructed on breast self-exam. Discussed & recommended a balanced nutritious diet. Discussed benefits of regular exercise. Obesity, risks discussed. Xenical for obesity. Will change OCP given breakthrough bleeding. Cholesterol checked last year and was acceptable, will recheck next year. Wet prep done for slight vaginal discharge on exam. Prevention or Hormone Therapy: OCP prescription given: Desogen. Risks, benefits, and alternatives for use were discussed. Shorthand Note completed on: 12/01/2003 8:15 AM Phone Note, Clinician - 07/02/2003 12:01 AM CST Phone Note signed by Delaney Guillaume APRN, COAL INSPECTOR at 01/04/04 9949 Author: Clinician Phone Note Service: (none) Author Type: Resource Filed: 11/30/03 0000 Note Time: 07/02/03 0001 Status: Signed Gravel Weigher: Clinician Phone Note (Resource) - TREATING PROVIDER: DELANEY CAMRYN * HOME PHONE:[phone] * SUBJECTIVE: * WORK PHONE:[phone] * ALLERGIES/SENSITIVITIES... CURRENT MEDICATIONS... PERTINENT PAST HISTORY... ASSESSMENT: Rx refill DISPOSITION: NO DISPOSITION GIVEN OMITTED ASKING ABOUT . OMITTED ASKING ABOUT NURSING. [facility] COM[facility]... Per Sandra Guillaume,CHRONOMETER ASSEMBLER AND ADJUSTER: ok for Joseon , Sig: take as directed, #84 (3 months) x2 refills. The patient needs a pap. This was faxed to [facility] at [phone] by Siira Brown CALL BY JORGE ESTRADA 07/02/2003 02:47PM [phone] ADDENDUM: Deandre Delarosa DPM - 04/14/2003 12:01 AM CDT Progress Notes signed by Deandre Delarosa DPM at 05/01/03 0853 Author: Deandre Delarosa DPM Service: (none) Author Type: Physician Filed: 10/13/10 1605 Note Time: 04/14/032022 Status: Signed Gravel Weigher: Deandre Delarosa DPM (Physician) NAME: IDANIA MORAN MR: [id number] ACCT: [id number] VISIT: [id number] DICTATING CLINICIAN: DEANDRE DELAROSA DPM JOB: [id number] CLINIC PROGRESS NOTE DATE OF VISIT: 04/14/2003 SUBJECTIVE: The patient presents for follow up. I have seen her in the past for left ankle pain which did resolve. Her current pain is on both feet. It is on the bottom of the heels and has been there for approximately 6 months. She has tried an hoqo-cqs-zchpqow temporary Blue insert which has not helped. She states that in the morning when she gets up she does not have any pain, it is only as the day goes on and in the evening that she has pain. 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 ADR/ALLERGIES: SHE DENIES ALLERGIES TO MEDICATIONS. OBJECTIVE: The patient is neurovascularly intact. She does have pain with direct plantar compression of each heel. There is no pain at the medial process. There is no pain over the distal fascial band. Slight enlargement is palpated in the plantar heel, left greater than right. There is no pain with subtalar joint or ankle joint range of motion. In stance, loss of longitudinal arch is evident. No other abnormalities identified. ASSESSMENT: Plantar bursitis, bilateral feet. PLAN: Treatment options were discussed with the patient. I discussed with her that this is different than plantar fascitis. That it is more of a plantar bursitis. I discussed the use of a heel cup, instead of an arch support. She will obtain a Tuli heel cup as well as a rigid heel cup and if there is no change with this, then I would suggest an injection into the area. TT: CT: [id number] C: 04/14/03 18:32 DOCUMENT: [id number] Delaney Arnett APRN, CNP - 03/05/2003 12:01 AM CDT Progress Notes signed by Delaney Guillaume APRN, CNP at 04/30/03 1711 Author: HERSON Macias Service: (none) Author Type: Nurse Practitioner Filed: 10/13/10 1528 Note Time: 03/05/03 0001 Status: Signed Gravel Weigher: HERSON Macias (Nurse Practitioner) NAME: IDANIA MORAN MR: [id number] ACCT: [id number] VISIT: [id number] DICTATING CLINICIAN: DELANEY GUILLAUME NP JOB: [id number] CLINIC PROGRESS NOTE DATE OF VISIT: 03/05/2003 SUBJECTIVE: : 1975. Patient is a 27-year-old white female, nulliparous, who presents to clinic today for a suspected vaginal infection. Patient states that she has noted increasing vaginal discharge, whitish, somewhat thick. She denies any itching or burning. Denies any irritation from it. Patient is in a stable monogamous relationship and partner has no symptoms. Patient states that it started this summer when she began to ride a horse every day. She states that she tries to keep her pants loose; however, with the heat she found that she was sweating more. She states that several other women from the stable have also noted increased discharge, and she felt that it would be best to have it checked out. CURRENT MEDICATIONS: Ortho-Novum , 28 days, and Wellbutrin 150 mg q. day. ADR/ALLERGIES: SHE HAS NO KNOWN ALLERGIES. NO LATEX ALLERGIES. OBJECTIVE: VS: BP: 120/70 left arm large cuff. P: 68. R: 18. Wt: 177. LMP: 02/16/03. Patient is a WD, WN female alert and oriented times three. Appears to be in no acute distress. External genitalia is without lesions, redness, or discharge. Urethral meatus is not enlarged, no inflammation noted. Vagina there is a moderate amount of mucusy white discharge noted. Almost like fertility mucus. Cervix was firm, mobile, and nontender. Uterus is small, involuted, ante, mobile, and nontender. Adnexa were negative. No masses or tenderness noted. Wet prep was negative for any pathogens. Discussed the above with patient, she did voice understanding. Discussed with patient that it is not unusual for some women to get increased vaginal discharge. She can try one or two things. One would be a one-time vinegar water douche to see if that does not decrease the mucus. The other one would be using acid gel to bring back the vaginal pH to see if this does not help. Patient did voice understanding. ASSESSMENT: Increased vaginal discharge. Negative exam. PLAN: Aci-jel one applicator full at h.s. times 10 days. Patient to return to clinic in three to four weeks' time if no improvement. TT: Approximately [address]: Eight minutes. 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 She had been using chlorpheniramine pjzj-dxr-nraopnp 4 mg, two or three at a time, but recently it stopped working, and she does have some itching of her eyes. No asthma or wheezing. Has not had allergy evaluation. Otherwise in good health. OBJECTIVE: VS: BP: 120/72. P: 80. Wt: 186. Alert and oriented, in no acute distress. Conjunctivae and slightly injected. Pupils normal. TMs show low grade serous otitis media. Ear canals normal. Nasal Mucosa: Moderately swollen. No sinus tenderness. Mouth, lips, tongue, and oropharynx normal. NECK: Supple. Thyroid not enlarged. LUNGS: Clear. No respiratory distress. ASSESSMENT: Allergic rhinitis. PLAN: Treatment: Gave samples of Zyrtec-D, Yojana-D, and Clarinex as well as Nasonex and Flonase, but if these are not effective, she will be referred to allergy. Also, I had wanted to give her Patanol eye drops, two drops to each eye b.i.d. p.r.n., but I neglected to do so. TT: CT: [id number] C: 10/27/02 18:54 DOCUMENT: [id number] Elsa Lopes APRN, COAL INSPECTOR - 07/31/2002 12:01 AM CST Progress Notes signed by MICHAEL Garduno at 09/18/02 1121 Author: MICHAEL Garduno Service: (none) Author Type: (none) Filed: 10/13/10 1156 Note Time: 07/31/02 0001 Status: Signed Gravel Weigher: MICHAEL Garduno (Nurse Practitioner) IMPRESSION: Routine health maintenance exam. Dysplastic nevi. Anxiety. Obesity. SUBJECTIVE: Aqcmtk-cvgy-ksvt-old Idania Moran is in clinic today for a routine health maintenance exam. Her last Pap and pelvic were a year ago. She has annuals. She is on Necon oral contraceptives. She has never had an abnormal or a sexually transmitted disease. She is just finishing her menstrual cycle. She has two concerns. One is decreased libido and the other is weight gain. She was started on Paxil approximately a year ago for anxiety. Her symptoms included decreased feelings of self worth and also physically she would have palpitations. She says she had a cardiac workup including an echocardiogram and there was no abnormality with her heart. Initially she was on Paxil 20 mg and had improvement. That dose was increased to 40 mg. She has been very concerned about her weight gain. She has joined [employer] and goes three or four times a week and she says she tries to monitor and eat a healthy diet. PAST MEDICAL HISTORY: No serious childhood or adult illnesses. No chronic conditions. PREVIOUS SURGERIES: Tonsillectomy, repair of fractured elbow in 2000. FAMILY HISTORY: Negative for diabetes, coronary artery disease, hypertension, or elevated cholesterol. Her maternal grandfather had prostate cancer. Her mother and father are both alive and well. SOCIAL HISTORY: She is , has been for four years. She and her have had no children to date. She has a horse and a dog. REVIEW OF SYSTEMS: Endocrine, ENT, pulmonary, gastrointestinal, musculoskeletal, and neurologic all unremarkable. Cardiovascular: She currently denies any symptoms of palpitations or associated shortness of breath or chest pain when she did have palpitations. Psych: States that the Paxil has helped her immensely in regards to her anxiety and general dysthymia, but she really does not want to continue taking it. Genitourinary: She would like a refill of her Necon today. HEALTH HABITS: She does exercise routinely. She smokes. She has just recently discontinued using tanning [place] on a regular basis. She does use sunscreen. There is no violence in her life. Her last tetanus was on 06/2001. OBJECTIVE: VS: BP: 130/70. P: 84. Ht: 5 ft 6-1/2 in. Wt: 189.6 lb. Pleasant, obese, young woman in no acute distress today. Alert and oriented times three with positive affect. Very rapid, pressured speech. SKIN: Warm, dry, supple, smooth, nondiaphoretic. HAIR: Thick, shiny. HEENT: Eyes: Conjunctivae clear and PERRLA. Ears: TMs pearly agarwal without distortion of landmarks or light reflex. Nose: Nasal passages nonhyperemic. Oropharynx without erythema or edema. NECK: Supple. No anterior or posterior cervical lymphadenopathy. No thyromegaly, nodularity, or tenderness. LUNGS: Clear to auscultation throughout. CARDIOVASCULAR: S1, S2, rate, and rhythm are regular without clicks, murmurs, or rubs. PMI nondisplaced. BREASTS: Symmetric without skin dimpling, puckering, or retractions. There are, however, some irregular contoured, flat, darkly pigmented nevi of approximately 0.5 cm in size noted on each breast. No axillary lymphadenopathy palpated. No discrete masses appreciated. She does do self-breast exams. ABDOMEN: Round, active bowel sounds throughout, soft, nontender, no organomegaly. No renal bruits auscultated. External genitalia without lesions. Vagina pink, smooth, moist. There is blood in the vaginal vault. Cervix is mobile, nontender with palpation. Endocervical cervical specimens obtained, but with blood contamination. Uterus, adnexa without fullness or pain. EXTREMITIES: Without cyanosis, clubbing, or edema. Brisk capillary refill. Pedal pulses palpable and symmetric times two. Brisk symmetric brachial patellar reflexes. ASSESSMENT: 1. Routine health maintenance exam. 2. Dysplastic nevi. 3. Anxiety. 4. Obesity. PLAN: She will have a cholesterol/HDL to compare to last years reading. At that time, her HDL was low at 40 giving a ratio of 4.9. She will also have a fasting glucose. She is referred to dermatology for mole mapping and further evaluation of dysplastic nevi. Regarding anxiety, I have prescribed Wellbutrin 150 mg one p.o. q.d. x1 week and then one p.o. b.i.d. She is to follow up with me in one-months time. I have also advised her to gradually wean Paxil as she increases the dose of Wellbutrin. Discussed with her, her obesity and talked about the fact that she needs more than just the weight toning routine with minimal aerobic at [employer] in order to achieve weightloss, that she should increase her maximum heart rate beyond half an hour in order to affect weightloss changes, and I talked to her about some diet modifications that can be consistent and penitentiary for her. She and her eat out a lot and I encouraged her to do more meal planning and eating at home, sitting to her meals, eating a portion of what she would usually eat, and avoiding fast foods and fried foods. Additionally, I talked to her about smoking cessation, indicating to her that Wellbutrin is medication frequently used for that purpose and that as she does have some desire to quit, that now might be a good time to plan it. TT: CT: [id number] C: 07/31/02 12:07 DOCUMENT: [id number] OYMENT ADVISOR Pepe Beaver MD - 07/01/2002 12:01 AM CST Progress Notes signed by at 08/16/02 0001 Author: Pepe Beaver MD Service: (none) Author Type: Physician Filed: 10/13/10 1111 Note Time: 07/01/02 0001 Status: Signed Gravel Weigher: Pepe Beaver MD (Physician) IMPRESSION: Upper respiratory infection with reactive 1 cm left submandibular lymph node. SUBJECTIVE: Ms. Moran is a 27-year-old female with a history of irritable bowel syndrome and panic attacks. She presents today with concerns for nasal congestion, sore throat, occasional productive cough, bilateral watery eyes as well as a left neck swollen gland that all have been present for the last four days. Patient says that she was in her usual state of good health up until approximately four days ago when she started developing nasal congestion which then developed into a sore throat and occasional productive cough with yellow phlegm. Now has noticed over the last couple of days an area of tenderness on the left neck area with a small gland that is palpable and fully mobile. She is otherwise well. Denies any weight loss. No fevers, chills, nausea, vomiting, no abdominal pain, no changes in bowel habits. No sick contacts or recent travels. She is otherwise well in all regards. PAST MEDICAL HISTORY: 1. Irritable bowel syndrome. 2. Panic attacks. Complete review of systems performed and is otherwise negative. MEDICATIONS: 1. Paxil 20 mg p.o. b.i.d., 2. Dicyclomine p.r.n. 3. Mecon. ADR/ALLERGIES: NO KNOWN DRUG ALLERGIES. Patient does smoke on a social occasion. Occasional alcohol use socially. No recreational drugs of abuse. OBJECTIVE: VS: T: 97.5. P: 80. Wt: 189 lb. In general patient is a well-nourished, well-appearing female in acute respiratory distress. Appears nontoxic. HEENT: Normocephalic, atraumatic. Pupils equal round and reactive to light. Sclerae anicteric. No discharge is noted from the conjunctivae. Sclerae are noninjected. Fundoscopic exam shows no AV nicking, no AV hemorrhages, no papilledema, normal CV ratio bilaterally. Bilateral tympanic membranes are clear. External auditory canals clear. Posterior pharynx is without erythema. No petechia. No oral thrush. Mucous membranes are moist and pink. Good dentition. NECK: Supple. Full range of motion. There is a very small, fully mobile, somewhat tender 1 cm lymph node in the submandibular area. The trachea is midline. No thyromegaly. No palpable masses. No stridors heard. CHEST: Clear to auscultation bilaterally with good bilateral air exchange. HEART: Regular rhythm. S1, S2. No murmurs, gallops or rubs. No rebound or guarding. Good bowel sounds in all four. Extremities are without cyanosis, clubbing, or edema. ASSESSMENT: Upper respiratory infection with reactive 1 cm left submandibular lymph node. PLAN: The patient was reassured that this small mass represents a very small lymph node as a result of the concurrent infection of the upper respiratory system. The patient will be started on Septra DS one tablet p.o. b.i.d. x a 7 day course of therapy. The patient may chose to use warm compresses to the lymph node to assist with analgesia p.r.n. She may also try Tylenol for pain relief as well as for her sore throat. I have encouraged the patient to increase her fluid hydration to 6-8 glasses of water a day to prevent dehydration. I have also provided the patient with a prescription for Entex PSE one tablet p.o. q. 12 hours as needed for nasal decongestant and cough supression. Side-effects of all medications were discussed today and the patient will followup as needed or if her symptoms persist for longer than two weeks. 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 SUBJECTIVE: Patient is seen in consultation at the request of Ene Sue Physician Criminal Research Specialist. Patient is a 27-year-old female who presents for left ankle pain. She states that about two weeks ago she developed some swelling in the ankle. She denies any injection or trauma. She does not recall any inversion type injury. She has not changed her routine. 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 She did join [employer] for [employer] within the last month though. MEDICATIONS: She is currently taking Paxil, dicyclomine, and Necon. ADR/ALLERGIES: DENIES ALLERGIES TO MEDICATIONS. OBJECTIVE: Patient is neurovascularly intact. There is no swelling or ecchymosis identified. She does have some pain over the medial ankle ligaments. There is slight discomfort over the posterior tibial tendon but is clearly at the medial ankle ligaments. There is no pain with subtalar joint or ankle joint range of motion. There is no pain with range of motion against resistance. No pain with stressing of the posterior tibial tendon. In stance there is loss of longitudinal arch evident. No other abnormalities identified. ASSESSMENT: Left ankle pain secondary to pronation syndrome. PLAN: Treatment options were discussed with the patient. It does appear that the pain is over the ankle ligaments and not over the posterior tibial tendon. I discussed with her that at this point we can address her foot structure and see if this is of any benefit. A LowDye strapping was suggested and applied to the left foot. She will keep this on and dry for three to five days and begin using a temporary insert. If this is of benefit, then we could consider a custom orthotic. She will follow up on p.r.n. basis. TT: CT: CC: LUPILLO LOPEZ ALP:[id number] C: 07/01/02 20:17 DOCUMENT: [id number] OYMENT ADVISOR Conversion, [facility] - 06/16/2002 12:01 AM CST Progress Notes signed by at 08/16/02 0001 Author: Tam Conversion Service: (none) Author Type: (none) Filed: 10/13/10 1055 Note Time: 06/16/02 0001 Status: Signed Gravel Weigher: Tam Conversion IMPRESSION: Left ankle pain secondary to pronation syndrome. SUBJECTIVE: Idania is 27 years old, and presents to the clinic today complaining of left ankle pain. She developed this on Sunday evening, she does not recall twisting it. She has not changed her activities. 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 When she came home the inner aspect of her left ankle was very sore and swollen. She has not changed her shoes. Again, denies trauma. Two weeks ago she joined [employer] and she was doing some of that. She wears Nike tennis shoes. Has not used any ice, heat, or ibuprofen. ADR/ALLERGIES: NONE. MEDICATIONS: Paxil, Necon, dicyclomine, Vicodin. OBJECTIVE: VS: BP: 122/60. Ht: 66 in. Wt: 189 lb. Upon inspection of left ankle, it is swollen and slightly tender along the bone. Inversion aggravates the ankle pain. Eversion was unremarkable. Anterior drawer sign was negative. When patient is walking she is extremely flat-footed. 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 PLAN: Patient will be sent to podiatry. Do note x-rays today were normal. Recommended shoes with good medial support, and better arch support. Patient will call if there are further concerns or problems. TT: CT: [id number]:[id number] C: 06/17/02 07:06 DOCUMENT: [id number] OYMENT ADVISOR Conversion, [facility] - 06/13/2002 12:01 AM CST Progress Notes signed by Justin Dunaway PA-C at 07/01/02 1462 Author: [facility] Conversion Service: (none) Author Type: (none) Filed: 10/13/10 1052 Note Time: 06/13/02 0001 Status: Signed Gravel Weigher: Tam Mcnamara IMPRESSION: Irritable bowel syndrome. Panic attacks. Medication check. SUBJECTIVE: 27-year-old actually scheduled today for a complete physical exam and Pap smear. It was found that her last Pap smear and physical exam was 07/05/01, so she is not due yet. Explained this to her today and today she would just like refills on her medications done. She is on her last pill pack for Necon and so she does need a refill on that to get her through until her next Pap smear. She also is on Paxil 20 mg. one p.o. b.i.d. and uses that to control panic attacks. That has worked very well for her. She has experienced no adverse side-effects from the medication. She is also on dicyclomine 20 mg. one p.o. q day p.r.n. and uses that for abdominal pain. She has been on it since a visit to the emergency room for recurrent severe abdominal cramping and it was determined after several rounds of testing and imaging that she had irritable bowel syndrome. Dicyclomine is something that she takes immediately if she feels the onset of the cramping and it has been very, very useful and effective. She has no other concerns today. CURRENT MEDICATIONS: As above. OBJECTIVE: VS/GEN: BP: 120/74 left arm large cuff Ht: 66 in Wt: 189 lb Appears pleasant, alert and in no distress today. ASSESSMENT: 1. Irritable bowel syndrome. 2. Panic attacks. 3. Medication refill. PLAN: Medications are refilled as above. The Paxil and dicyclomine are refilled for a year. The Necon is refilled for three months and she is encouraged to come back in in late June or July for a physical exam and she is agreeable to that. TT: CT: [id number] C: 06/14/02 14:09 DOCUMENT: [id number] Conversion, [facility] - 11/26/2001 12:01 AM CDT Phone Note signed by Nataly Gore APRN, COAL INSPECTOR at 11/29/01 5715 Author: Tam Conversion Service: (none) Author Type: (none) Filed: 10/13/1012 Note Time: 11/26/01 0001 Status: Signed Gravel Weigher: Tam Conversion IMPRESSION: Yojana and Differine gel refills - TREATING PROVIDER: NATALY JOHN * HOME PHONE:[phone] * SUBJECTIVE: * WORK PHONE:[phone] * PATIENT COMPLAINS OF... Pharmacy calling in need of refill authorization for Yojana 180mg and Differine gel ALLERGIES/SENSITIVITIES... 07/12/01 11/26/01 CURRENT MEDICATIONS... 07/12/01 11/26/01 PERTINENT PAST HISTORY... 07/12/01 11/26/01 ASSESSMENT: Yojana and Differine gel refills DISPOSITION: NO DISPOSITION GIVEN PATIENT IS NOT . PATIENT IS NOT NURSING. PLAN: [facility] COMMENTS... Per Bright Gore THERAPIST PHYSICAL: Yojana 180mg #30 and Differine gel 42 grams ok to refill through 06/27. Pharmacy notified of above. CALL BY TESSY CAMARGO 11/26/2001 02:26PM ADDENDUM: Gil Jean-Baptiste MD - 11/04/2001 12:01 AM CDT Progress Notes signed by at 07/12/02 1831 Author: Gil Jean-Baptiste MD Service: (none) Author Type: Physician Filed: 10/13/10 0541 Note Time: 11/04/01 0001 Status: Signed Gravel Weigher: Gil Jean-Baptiste MD (Physician) IMPRESSION: Doing well from radial head fracture, left elbow. SUBJECTIVE: Idania is returning to clinic for follow-up of radial head fracture that she sustained about nine days ago. She was recommended to come back for repeat x-ray. In the meantime she has gained pretty much full range of motion. In fact that she tells me that she went back to horseback riding already. She complains of mild soreness in the wrist. No particular symptoms in the elbow. She has some questions about the previous stiffness related to her injury to the elbow about 10 years ago. She has limited pronation and supination from the injury. OBJECTIVE: She has regained pretty much full extension and flexion with pre- existing pronation and supination. She lacks about 20 to 25 degrees of terminal supination on the left compared to the right. She does have mild valgus deformity on the left compared to the right probably due to gross disturbances from the previous fracture. X-rays taken today demonstrate well-healed radial head fracture with no particular pathology. Small involvement of the radial head. The fracture is well-maintained in terms of location. ASSESSMENT: Doing well from radial head fracture, left elbow. PLAN: Follow-up in four weeks with repeat x-rays. She will be using the arm only gently with flexion and extension. TT: CT: [id number] C: DOCUMENT: [id number] Sukhi Soto MD - 10/29/2001 12:01 AM CDT Progress Notes signed by at 07/12/02 1831 Author: Sukhi Soto MD Service: (none) Author Type: Physician Filed: 10/13/1034 Note Time: 10/29/01 0001 Status: Signed Gravel Weigher: Sukhi Soto MD (Physician) IMPRESSION: Possible elbow fracture. SUBJECTIVE: Patient is a 26-year-old woman who was seen yesterday by Dr. Jean-Baptiste for a radial head fracture. She had fallen off a horse on Sunday. She was seen at [facility], and x-rays in the emergency room showed anterior and posterior elbow effusion suggesting a subtle radial head fracture. It was noted that a fracture was difficult to visualize on the films. She is in a long-arm splint. She is requesting casting or other definitive treatment. OBJECTIVE: There is mild diffuse swelling of the elbow. Although, she has good range of motion and a little discomfort over the radial head. ASSESSMENT: Possible elbow fracture. PLAN: I think this is probably a very stable injury, and rather than immobilize the elbow, I would recommend leaving it out of the splint or cast and allowing her motion to avoid developing any significant stiffness. She should follow up with Dr. Jean-Baptiste at the scheduled appointment. TT: CT: [id number] C: DOCUMENT: [id number] Gil Jean-Baptiste MD - 10/28/2001 12:01 AM CDT Progress Notes signed by at 07/12/02 1830 Author: Gil Jean-Baptiste MD Service: (none) Author Type: Physician Filed: 10/13/10 0532 Note Time: 10/28/01 0001 Status: Signed Gravel Weigher: Gil Jean-Baptiste MD (Physician) IMPRESSION: Possible radial head fracture, left elbow. SUBJECTIVE: Idania is currently a 26-year-old female who sustained injury falling off a horse on October 26 and was seen at the [facility] Emergency Room. X-rays were taken and a posterior splint was placed with a possible fracture of the left elbow in the radial head region. She apparently had a fracture to that elbow back in 1991 and has lost some range of motion in terms of pronation and supination. She has been taking Vicodin, however, that made her upset in her stomach and did throw up quite a few times and now she is having pain in her chest, probably from the strain of the intercostal muscles. OBJECTIVE: EXTREMITIES: As far is examination is concerned, the splint is intact. NEURO: Neurovascular status is intact. X-rays were reviewed and no obvious fracture. Possible minimal radial head fracture. ASSESSMENT: Possible radial head fracture, left elbow. PLAN: Continue with the immobilization and see her back in one week and we will need new x-rays at that point out of the splint. TT: CT: [id number]:[id number] C: DOCUMENT: [id number] Hanny Cade MD - 09/27/2001 12:01 AM CST Progress Notes signed by Hanny Cade MD at 07/29/02 1004 Author: Hanny Cade MD Service: (none) Author Type: Physician Filed: 10/13/10 0447 Note Time: 09/27/01 0001 Status: Signed Gravel Weigher: Hanny Cade MD (Physician) IMPRESSION: Irritable bowel. SUBJECTIVE: Idania is a 26-year-old woman who comes in today with recurrent episodes of right lower quadrant pain. She states the first episode occurred last March. It was relatively brief lasting 15 to 20 minutes. Was very sharp, severe. She had another episode in June. At that time she was seen by an BUTTON TACKER who felt that she may have had a ruptured ovarian cyst, however, an ultrasound done a few weeks after her visit was unremarkable. She has been on the control pill for several years. She is taking the Ortho-Novum every day with just having a breakthrough bleed every four months. She generally has a very light period and she is due for her next menses sometime in the next two weeks. She states her last episode was five days ago. It was very abrupt in onset in the middle of the afternoon. She states it was a 10 out of 10, very sharp, severe, localized to the right lower quadrant and periumbilical area. She states she felt shaky, sweaty, felt tingly all over. Was unable to get off the floor. Her called the nurse line who recommended that she be evaluated. She states she started to have gradual improvement after 35 minutes and was gone after another half hour. She now has just a persistent dull ache primarily with palpating the abdomen. Her appetite has remained normal. Bowels have remained normal. She is denying any dysuria and is having no symptoms of vaginal discharge. She has had no surgeries. Generally, has no medical problems and is on Paxil and Ortho- Novum. The Paxil was started recently because of a panic attack. She had had some palpitations. She had a normal TSH done recently. OBJECTIVE: VS/GEN: BP: 134/64. P: 72 and regular. R: 14. Wt: 166. On exam today she is alert, cooperative, interactive in no apparent distress. HEENT: Conjunctivae clear. TMs normal. Oropharynx unremarkable. Thyroid appeared upper limits of normal but no palpable nodules. No adenopathy. LUNGS: Respirations were clear to auscultation. No evidence of rhonchi or wheezes. CV: Regular S1, S2 with no murmurs, rubs or gallops. No carotid bruits. ABD: Bowel sounds are present. Normal active. Abdomen was soft. She does have some minimal right lower quadrant discomfort but no evidence of palpable masses. No evidence or rebound or guarding. No inguinal masses. SKIN: Dermatologic exam negative for rash. EXT: No evidence for peripheral edema. Laboratory testing done today included a UA that showed trace ketones, few bacteria, otherwise negative. CBC was done and was negative. Sed rate was done and was normal at 3. Urine test was negative and a flat and upright abdomen were done and really were normal with normal gas pattern. No evidence of obstruction or air fluid levels. ASSESSMENT: With the episodic nature of this I suspect it is an irritable bowel. PLAN: She was given a prescription of Bentyl 20 mg one p.o. q8h p.r.n. Asked that she increase the fluids, increase the fiber in her diet and if symptoms persist may consider getting an abdominal CT in the future, however, reassurance is given at this time. TT: CT: [id number] C: DOCUMENT: [id number] OYMENT ADVISOR Conversion, [facility] - 09/21/2001 12:01 AM CST Phone Note signed by at 09/21/01 5869 Author: Tam Conversion Service: (none) Author Type: (none) Filed: 10/13/10 0439 Note Time: 09/21/01 0001 Status: Signed Gravel Weigher: Tam Conversion IMPRESSION: Abdominal pain-(adult)-triage guideline - TREATING PROVIDER: DELANEY GUILLAUME SUBJECTIVE: * HOME PHONE: [phone] * PATIENT COMPLAINS OF... * WORK PHONE: [phone] * calling because pt has abdominal pain again. States she has been seen for this in the past but tests negative. Asked to talk with patient, said she didn't want to talk. Wanting to know what to do, where to take her. ALLERGIES/SENSITIVITIES... 07/12/01 CURRENT MEDICATIONS... 07/12/01 PERTINENT PAST HISTORY... 07/12/01 ASSESSMENT: Abdominal pain-(adult)-triage guideline DISPOSITION: NO DISPOSITION GIVEN OMITTED ASKING ABOUT ; OMITTED ASKING ABOUT NURSING; PLAN: RECOMMENDED THE FOLLOWING... Patient information given per Abdominal Pain nurse guidelines. Told unable to triage if pt unwilliing to talk with nurse. Told him he and Idania need to determine that based on where seen and info given in past. INFORMED PATIENT TO CALLBACK IF... Reasons to call back reviewed- caller verbalizes understanding of the need to call back for the following reasons: -Any other questions or concerns Call taken by MEAGHAN MORGAN RN [phone] 09/21/2001 01:35 PM ADDENDUM: Jorge Chew MD - 08/23/2001 12:01 AM CST Progress Notes signed by at 08/16/022022 Author: Jorge Chew MD Service: (none) Author Type: (none) Filed: 10/13/10 0358 Note Time: 08/23/012022 Status: Signed Gravel Weigher: Jorge Chew MD (Physician) IMPRESSION: Probable panic disorder. SUBJECTIVE: Patient is a 26-year-old woman who presents because of concerns about possible panic disorder. She reports that at least for two or three years, maybe longer, she has had episodes generally when she is relaxing or at rest consisting of tremors, shakes, palpitations, the sensation that her throat is closing up, feeling that she is going to . She has had an evaluation of this with Dr. Kuhn. Thyroid study was normal, echocardiogram was normal according to the patient. PAST MEDICAL HISTORY: Negative for hospitalizations, surgeries, or serious illnesses. FAMILY HISTORY: Biological dad and grandparents with some anxiety and stress. Her grandfather had what sounds like agoraphobia and could not be out in crowds. MEDS: Currently oral contraceptives. ADR/ALLERGIES: SHE HAS NO KNOWN DRUG ALLERGIES. She has eliminated caffeine and eliminated tobacco. OBJECTIVE: VS/GEN: BP: 142/80. P: 80 radial. Healthy appearing woman in no acute distress. In general she appears to be healthy although slightly anxious. CV: Regular rate and rhythm without murmur, rub or gallop. ASSESSMENT: Probable panic disorder. PLAN: Trial of Paxil 10 mg daily. Side effects, benefits discussed. Brochure provided both regarding SSRI's and panic disorder. May increase to 20 mg daily if needed. Revisit in two months, sooner p.r.n. problems. TT: CT: [id number] C: DOCUMENT: [id number] Zara Santana MD - 08/07/2001 12:01 AM CST Progress Notes signed by at 08/16/022022 Author: Zara Santana MD Service: (none) Author Type: Physician Filed: 10/13/10 0335 Note Time: 08/07/012022 Status: Signed Gravel Weigher: Zara Santana MD (Physician) IMPRESSION: Sinusitis failing amoxicillin. Social smoker. SUBJECTIVE: A 26-year-old female here for multiple symptoms that initially started around July 18, 2001, with a sore throat. At that time, she was seen in Urgent Care, but not treated with antibiotics. Later, she developed postnasal drainage that was copious and purulent and was treated with amoxicillin, which did not give her any relief of symptoms, but she did refill the medication. She describes that her symptoms continue worsening and at this point, she is blowing out green and yellow nasal drainage. She feels a deep congestion in her head. This has now been going on for well over two weeks and she has diffuse facial discomfort, malaise, often feels hot, but has not documented any fever. Sometimes feels a little nauseous and has actually vomited once. Has not had shortness of breath or wheezing. Has not had a history of sinus infections. MEDICATIONS: Claritin (currently holding) and an oral contraceptive. ADR/ALLERGIES: NONE. She smokes several cigarettes weekly. 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 OBJECTIVE: VS/Gen: BP: 128/80. T: 98.1. P: 80. Wt: 161 pounds. She appears mildly ill. HEENT: Normal external ears, auditory canals and TMs. Pupils equal, round, reactive to light. Conjunctivae are clear. Nasal speculum examination shows what I believe are polyps and also purulent discharge is seen. Mild bilateral maxillary tenderness to percussion. Oral cavity and pharynx are clear. NECK: Without adenopathy, mass or thyromegaly. LUNGS: Clear, breathing comfortably. CV: Regular rate and rhythm. ABD: Soft and nontender. SKIN: Without rash or lesion. EXTREMITIES: Lower extremities are without edema. ASSESSMENT: 1. Sinusitis failing amoxicillin. 2. Social smoker. PLAN: 1. Will treat with Augmentin 875 mg p.o. b.i.d. times 14 days. Also discussed using steam, described and wrote down instructions for sinus irrigation. If not improving over the next several days, would change to something different, possibly Levaquin. At some point when she is clear, she should be rechecked to evaluate the possibility of nasal polyps. 2. Strongly urged her to completely quit smoking as even social smoking can interfere with ability to fight infection such as this. TT: CT: [facility]:[id number] C: DOCUMENT: [id number] OYMENT ADVISOR Noemí Kuhn MD - 08/02/2001 12:01 AM CST Progress Notes signed by at 08/16/02 0001 Author: Noemí Kuhn MD Service: (none) Author Type: (none) Filed: 10/13/10 0328 Note Time: 08/02/012022 Status: Signed Gravel Weigher: Tam Conversion IMPRESSION: Palpitations, likely benign. SUBJECTIVE: A 26-year-old female who complains of palpitations on and off for the past year, or so. She states she does not feel it while exercising, but it does occur while relaxing. She may notice it while watching TV or sitting quietly. She states that recently, with the palpitations, she may feel the shakes. She uses minimal caffeine, approximately one per day. She is . She does smoke one to two cigarettes per day. She does enjoy walking for exercise. 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 CURRENT MEDS: Claritin-D, Ortho-Novum, and amoxicillin for sinusitis. ADR/ALLERGIES: SHE HAS NO KNOWN DRUG ALLERGIES. OBJECTIVE: VS/Gen: BP: 110/64. P: 90. Wt: 158 lb. Well-developed, pleasant female. HEENT: TMs are normal. Oropharynx is clear. NECK: Supple. No thyromegaly. LUNGS: Clear to auscultation. CV: S1, S2, with a 2/6 systolic murmur at the right sternal border. REVIEW OF LAB WORK: Cholesterol was 194. TSH normal at 1.4, June,. ASSESSMENT: Palpitations, likely benign. Recommended discontinuing Sudafed or any decongestants or caffeine. Cardiac echo scheduled to evaluate her murmur. PLAN: See assessment. TT: CT: [id number] C: DOCUMENT: [id number] Charles Duarte - 07/24/2001 12:01 AM CST Progress Notes signed by Charles Duarte MD at 08/12/01 0755 Author: Charles Duarte MD Service: (none) Author Type: Physician Filed: 10/13/10 0314 Note Time: 07/24/01 0001 Status: Signed Gravel Weigher: Charles Duarte MD (Physician) IMPRESSION: Sinusitis with postnasal drainage. Cough, headache, sore throat and fatigue related to above. SUBJECTIVE: Chief Complaint: URI. HISTORY: Ms. Moran is a 26-year-old young lady who was here last week for pretty much the same symptoms. Still has persistent sore throat, runny nose. Is now developing more increasing productive cough, frontal headaches and fatigue. PAST MEDICAL HISTORY: Seasonal allergies. MEDICATIONS: Claritin p.r.n. ADR/ALLERGIES: NONE TO MEDICATIONS. PREVIOUS SURGERIES: Tonsillectomy as a child. REVIEW OF SYSTEMS: Some ear pain, some significant postnasal drainage, sinus pressure and pain, specifically when leaning forward. She has had some pressure in the back of her head also. She has had slight diminished hearing in her ears secondary to the popping. OBJECTIVE: VS/Gen: BP: 134/62. T: 97.2. P: 92. R: 18. Good color and hydration, nontoxic, but obviously congested. HEENT: Ears are bilaterally clear. Right side slightly retracted. I do not see any fluid or other abnormality. She has a purulent postnasal drainage. Tonsils are small. There is no significant pharyngeal hyperemia, petechiae or other abnormalities. NECK: She has no adenopathy. LUNGS: Clear. ABD: Benign. ASSESSMENT: 1. Sinusitis with postnasal drainage. 2. Cough, headache, sore throat and fatigue related to above. PLAN: Amoxicillin 500 mg t.i.d. for seven days with one refill. Afrin nasal spray and Nyquil at night. Recheck for increasing and/or persistent symptoms, fever, aches and pains, etc. TT: CT: [id number] C: DOCUMENT: [id number] Ivan Allen MD - 07/18/2001 12:01 AM CST Progress Notes signed by at 08/16/02 0001 Author: Ivan Allen MD Service: (none) Author Type: Physician Filed: 10/13/10 0305 Note Time: 07/18/01 0001 Status: Signed Gravel Weigher: Ivan Allen MD (Physician) IMPRESSION: Probably a viral pharyngitis. 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 Has had a sore throat for a couple of days and exposed to lots of other people with colds and respiratory infections. She takes control pills and Claritin. Her past history is essentially normal. OBJECTIVE: HEENT: Exam shows just a very slight erythema in the oropharynx, some submucosal swelling. Ears are clear. No adenopathy. LUNGS: Clear to auscultation. Strep screen was negative. ASSESSMENT: Probably a viral pharyngitis. PLAN: Gargles, lozenges, simple analgesics. She can take Entex PSE for congestion, with just probably Robitussin and Sudafed as a simple form instead of the pill for now. Recheck as needed. 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 pt was in to see you in Jun. She was given a Rx for Necon . She did fill i month supply but now would like a written Rx for the rest of the year so she can send it to her mail order pharmacy. ALLERGIES/SENSITIVITIES... 07/12/01 CURRENT MEDICATIONS... 07/12/01 PERTINENT PAST HISTORY... 07/12/01 WEIGHT: PATIENT IS NOT . PATIENT IS NOT NURSING. ASSESSMENT: written Rx for Necon PLAN: DISPOSITION: NON-URGENT Verbalizes understanding and agrees with phone care recommendation CALL BY DAVID GERARD 07/12/2001 01:30PM [id number] ADDENDUM: Delaney Guillaume APRN, CNP - 07/05/2001 12:01 AM CST Progress Notes signed by Delaney Guillaume APRN, CNP at 07/07/01 3992 Author: HERSON Macias Service: (none) Author Type: Nurse Practitioner Filed: 10/13/10 0245 Note Time: 07/05/012022 Status: Signed Gravel Weigher: HERSON Macias (Nurse Practitioner) IMPRESSION: Right lower quadrant pain of unknown etiology. Heart palpitations of unknown etiology. Pap. OC refill. SUBJECTIVE: Patient is a 26-year-old white female who presents to clinic today for a routine Pap and pelvic and a refill on her oral contraceptives, which is currently Necon . Patient does have several concerns. The first one is regarding lower right quadrant pain for approximately the last two months. The patient states that it has occurred at least four to five times where she has very acute stabbing pain, that it is very difficult for her move, lasting 15 minutes, and then she will have a dull, aching pain for approximately two to three days. Patient states that it does not appear to be cyclical. There is really no rhyme or reason to the pain. She denies any nausea or vomiting at that time. Patient notes no stool changes. Occasionally notes some abdominal bloating but does not know if it is related to the pelvic pain. Patient states that no foods really change the pain. Patient's second concern is regarding heart palpitations. Patient states that it happens on a daily basis but usually at rest. She has checked her pulse occasionally. It has been anywhere from 130 to 150s. Patient states that it is usually short-lived, lasting about 5 to 10 minutes. She states that she actually can see her heart pounding. Patient does not notice it with exercise. Patient denies any shortness of breath or dizziness occurring with this. Patient denies any other problems. CURRENT MEDICATIONS: Claritin and Necon 135. Immunizations are up-to-date. ADR/ALLERGIES: SHE HAS NO KNOWN ALLERGIES. Patient does smoke one to two packs of cigarettes a day. Again, does not notice any of the heart palpitations occurring with that. She rarely has alcohol. Has very limited caffeine intake. Patient does exercise in the summer, has very little exercise in the winter. It was encouraged for her to exercise. Patient does not to SBEs. This was highly encouraged and taught. Patient does wear a seat belt at all times. Diet appears adequate. She has a good source of calcium in. MEDICAL HISTORY: Patient does have heart palpitations as mentioned before. Allergies consist of dust and mold. Surgeries consist of a T&A as a child. Fracture history: A leg and also an elbow as a child. LICENSED TAX CONSULTANT HISTORY: Menarche began at age 15. Menses every three months. Patient does do continuous oral contraceptives with three months on, one month allowing herself to have a menses. Patient denies any dyspareunia, dysmenorrhea or intermenstrual bleeding. No history of abnormal Paps, KATHERINE, STD or PID. Patient is nulliparous. FAMILY HISTORY: Parents are . She has very little contact with her father. He is living and well. Her mother is living and well; she did have a hysterectomy two years ago secondary to abnormal Paps; she is age 43. She has one brother who is living and well. Grandparents: Maternal grandmother is living and well. Maternal grandfather had Ca of the prostate. Paternal grandmother is living and well, and paternal grandfather is of an [place] in his 70s. Complete review of systems is obtained and beside the above is found to be negative. OBJECTIVE: BP: 122/78. Ht: 5 ft 6 1/2 in. Wt: 161 lb. Patient is a WD/WN female, alert and orientated times three. Appears to be in no acute distress. HEENT: Eyes: Sclerae are clear. Pupils are equal. Mouth, lips and gums appear normal. Teeth are in good repair. NECK: Supple. Trachea is midline, fully mobile and without adenopathy. Thyroid is smooth, nontender, without masses or lymphadenopathy. Thyroid feels just slightly enlarged but within normal limits. BREASTS: Symmetrical bilaterally. There is no puckering, dimpling or skin changes noted. Nipples are without retraction, deviation or discharge bilaterally. Axillae are negative bilaterally. LUNGS: Clear to auscultation bilaterally. CV: Regular rate and rhythm without murmurs, rubs, gallops or clicks. ABD: Soft, nontender. No organomegaly, CVA or suprapubic tenderness is noted. Pain is in the lower right quadrant. She has no pain at this time. No rebound tenderness is noted. : External genitalia is without lesions, redness or discharge. Urethral meatus is nonenlarged. No inflammation noted. LICENSED TAX CONSULTANT: Vagina is pink and rugated. Just a scant amount of clear vaginal discharge noted. Cervix is very firm, lower in the vaginal canal, mobile and nontender. Slightly friable with the use of a cryobrush. Uterus is small, involuted, antemobile and nontender. Right Adnexa: Appears to be a small ovarian cyst on that side. No masses or tenderness is noted. Left adnexa is negative. RECTAL: Without lesions or irritations. Normal sphincter tone is noted. SKIN: Good texture, turgor and temp. No atypical lesions, tatoos or piercings. Patient is tanned. Discussed tanning in regards to skin cancer. MUSCULOSKELETAL: Patient ambulates without assistance. No apparent scoliosis or kyphosis. EXTREMITIES: Without clubbing, cyanosis, edema. Legs are without swelling or varicosities. Discussed the above with patient. Because of the palpitations she is noticing on a daily basis, I will send her to Dr. Kuhn for consult regarding this. Also will get a pelvic ultrasound. Patient did voice understanding of this. ASSESSMENT: Right lower quadrant pain of unknown etiology. Heart palpitations of unknown etiology. Pap. OC refill. PLAN: TSH, cholesterol fractionization, pelvic ultrasound, Necon 28 days continuous dosing, three months x three. Consultation with Dr. Kuhn regarding heart palpitations. TT:30mins. CT:20 mins. AC:[id number] C: DOCUMENT: [id number] OYMENT ADVISOR documented in this encounter Plan of Treatment Upcoming Encounters Date Type Specialty Care Team Description 05/05/2022 Appointment Chemo Therapy/Infusion Services 09/15/2022 Telemedicine Gastroenterology Ellie Haines MD [address] [place], [place] [address] (Wo rk) documented as of this encounter Procedures Procedure Name Priority Date/Time Associated Comments Diagnosis GLUCOSE Routine 07/31/2002 8:44 AM Results f or this EMPLOYMENT ADVISOR procedure are i n the results section. CHOLESTEROL, TOTAL Routine 07/31/2002 8:44 AM Res ults for this AND HDL EMPLOYMENT ADVISOR procedure are i n the results section. XR ANKLE Routine 06/16/2002 4:52 PM Results f or this EMPLOYMENT ADVISOR procedure are i n the results section. XR ELBOW Routine 11/04/2001 2:32 PM Results f or this CDT procedure are i n the results section. XR ABD FLAT AND Routine 09/27/2001 1:41 PM Result s for this UPRIGHT EMPLOYMENT ADVISOR procedure are i n the results section. URINALYSIS COMPLETE Routine 09/27/2001 1:26 PM Re sults for this EMPLOYMENT ADVISOR procedure are i n the results section. COMPLETE BLOOD Routine 09/27/2001 1:26 PM Results for this COUNT-NO DIFF EMPLOYMENT ADVISOR procedure are in the results section. TEST Routine 09/27/2001 1:26 PM Results for this (URINE) EMPLOYMENT ADVISOR procedure are i n the results section. ESR Routine 09/27/2001 1:26 PM Results f or this EMPLOYMENT ADVISOR procedure are i n the results section. US PELVIC PEDIATRIC Routine 08/08/2001 1:15 PM Re sults for this (NO EV) EMPLOYMENT ADVISOR procedure are i n the results section. STREP GROUP A ANTIGEN Routine 07/18/2001 1:50 PM Results for this TEST EMPLOYMENT ADVISOR procedure are i n the results section. BETA STREP FOLLOWUP Routine 07/18/2001 1:50 PM Re sults for this EMPLOYMENT ADVISOR procedure are i n the results section. ANATOMICAL PATH-C Routine 07/05/2001 1:21 PM Resu lts for this EMPLOYMENT ADVISOR procedure are i n the results section. THYROID STIMULATING Routine 07/05/2001 8:28 AM Re sults for this HORMONE EMPLOYMENT ADVISOR procedure are i n the results section. LIPID PANEL AND Routine 07/05/2001 8:28 AM Result s for this DIRECT LDL(IF NEEDED) EMPLOYMENT ADVISOR proced ure are in the results section. documented in this encounter Results Glucose (07/31/2002 8:44 AM EMPLOYMENT ADVISOR) P athologist Signature Length Of Fast 12.0 Hours HP CONVERSION Lab Glucose 90 60 - 109 HP CONVERSION mg/dL Specimen (Source) Anatomical Collection Method Collection Time Re ceived Time Location / / Volume Laterality 07/31/2002 8:44 AM EMPLOYMENT ADVISOR Elsa Lopes APRN, COAL INSPECTOR LAB_1 Performing Organization Address City/State/ZIP Code Phon e Number HP CONVERSION (ABNORMAL) Cholesterol, Total and HDL (07/31/2002 8:44 AM EMPLOYMENT ADVISOR) Patholo gist Method Time Signature Cholesterol/HDL 3.7 No normal HP CONVERSION Ratio Screen range Cholesterol 201 (H) 125 - 199 HP CONVERSION mg/dL HDL Cholesterol 54 40 - 60 HP CONVERSION mg/dL Specimen (Source) Anatomical Collection Method Collection Time Re ceived Time Location / / Volume Laterality 07/31/2002 8:44 AM EMPLOYMENT ADVISOR Elsa Lopes [facility] LAB_1 Performing Organization Address City/State/ZIP Code Phon e Number HP CONVERSION XR Ankle (06/16/2002 4:52 PM EMPLOYMENT ADVISOR) Anatomical Region Laterality Modality Other Specimen (Source) Anatomical Location Collection Method / Collectio n Time Received Time / Laterality Volume Narrative 06/16/2002 4:52 PM EMPLOYMENT ADVISOR CLINICAL DATA: ?PAIN. ??719.41 FINDINGS: ?? BN1 ?? NO RADIOGRAPHIC EVIDENCE OF BONE OR JOINT ABNORMALITY. TECH-ID : ? KS TRANS-ID: Procedure Note Yimi Duron MD - 08/31/2016Format ting of this note might be different from the original. CLINICAL DATA: PAIN. 719.41 FINDINGS: BN1 NO RADIOGRAPHIC EVIDENCE OF BONE OR JONATHAN NT ABNORMALITY. TECH-ID : KS TRANS-ID: Ene Sue PA-C RAD GD XR Elbow (11/04/2001 2:32 PM CDT) Anatomical Region Laterality Modality Other Specimen (Source) Anatomical Location Collection Method / Collectio n Time Received Time / Laterality Volume Narrative 11/04/2001 2:32 PM CDT CLINICAL DATA: ?F/U QUESTION RADIAL HEAD FRACTURE ?813.44 FINDINGS: ?A 10/26/01 STUDY OF THE LEFT ELBOW S HOWED THE LARGE JOINT ?EFFUSION WITH A POSITIVE FAT PAD S IGN, HOWEVER, A DEFINITE ?FRACTURE AT THE ELBOW IS NOT SEEN. ??TODAY'S STUDY SHOWS ?PROMINENT FAT PADS INDICATING A JOSEE INT EFFUSION REMAINS. ?THERE IS NO OBVIOUS FRACTURE. ??ON VIEW SHOWS A VERY SUBTLE ?LINE THROUGH THE ANTERIOR PORTION OF THE RADIAL HEAD ?EXTENDING INTO THE ARTICULAR DENEEN X WHICH COULD BE AN ?UNDISPLACED FRACTURE. ?[id number] TECH-ID : ? AET TRANS-ID: ? EDR Procedure Note Mili, Alejandro L - 08/31/2016Formattin g of this note might be different from the original. CLINICAL DATA: F/U QUESTION RADIAL HEAD FRACTURE 813.44 FINDINGS: A 10/26/01 STUDY OF THE LEFT ELBOW SHOWED THE LARGE JOINT EFFUSION WITH A POSITIVE FAT PAD SIGN, HOWEVER, A DEFINITE FRACTURE AT THE ELBOW IS NOT SEEN. TODA Y'S STUDY SHOWS PROMINENT FAT PADS INDICATING A JOINT E FFUSION REMAINS. THERE IS NO OBVIOUS FRACTURE. ON VIEW S HOWS A VERY SUBTLE LINE THROUGH THE ANTERIOR PORTION OF TH E RADIAL HEAD EXTENDING INTO THE ARTICULAR CORTEX WHI CH COULD BE AN UNDISPLACED FRACTURE. [id number] TECH-ID : AET TRANS-ID: EDR Asa B Jerilyn SANDY RAD GD XR Abd Flat And Upright (09/27/2001 1:41 PM EMPLOYMENT ADVISOR) Anatomical Region Laterality Modality Abdomen Other Specimen (Source) Anatomical Location Collection Method / Collectio n Time Received Time / Laterality Volume Narrative 09/27/2001 1:41 PM EMPLOYMENT ADVISOR CLINICAL DATA: ?PAIN FINDINGS: ?THERE IS LEVOSCOLIOSIS OF THE LUMB AR SPINE. THIS MAY BE ?POSITIONAL OR COULD BE RELATED TO SPLINTING. THE BOWEL GAS ?PATTERN IS UNREMARKABLE WITH AIR A ND FECES IN NONDILATED ?SMALL BOWEL AND COLON TO THE LEVEL OF THE RECTUM. NO ?ABNORMAL AIR-FLUID LEVELS ARE SEEN ON THE UPRIGHT VIEW AND ?THERE IS NO FREE AIR. A METALLIC R ING IS PRESENT IN THE ?NAVAL. THERE ARE NO ABNORMAL CALCI FICATIONS SEEN. ?MT TECH-ID : ? RE TRANS-ID: ? EDR Procedure Note TamaraJorge - 08/31/2016 CLINICAL DATA: PAIN FINDINGS: THERE IS LEVOSCOLIOSIS OF THE LUMBAR SP INE. THIS MAY BE POSITIONAL OR COULD BE RELATED TO SPLIN TING. THE BOWEL GAS PATTERN IS UNREMARKABLE WITH AIR AND FE POONAM IN NONDILATED SMALL BOWEL AND COLON TO THE LEVEL OF T HE RECTUM. NO ABNORMAL AIR-FLUID LEVELS ARE SEEN ON T HE UPRIGHT VIEW AND THERE IS NO FREE AIR. A METALLIC RING I S PRESENT IN THE NAVAL. THERE ARE NO ABNORMAL CALCIFICAT IONS SEEN. [facility] TECH-ID : RE TRANS-ID: EDR Hanny Cade MD RAD GD Complete Blood Count-No Diff (09/27/2001 1:26 PM EMPLOYMENT ADVISOR) athologist Signature White Blood Cell 7.0 3.8 - 11.0 HP CONVERSIO N Count K/cmm Red Blood Cell 4.63 3.70 - HP CONVERSION Count 5.20 m/cmm Hemoglobin 14.1 11.8 - HP CONVERSION 15.5 gm/dL Hematocrit 39.4 35.0 - HP CONVERSION 46.0 % Mean Corpuscular 85.0 80.0 - HP CONVERSION Volume 100.0 fl Mean Corpuscular 30.5 27.0 - HP CONVERSION Hemoglobin 34.0 pg Mean Corpuscular 35.7 32.0 - HP CONVERSION Hemoglobin Conc 36.5 gm/dL [place] RDW 11.3 11.0 - HP CONVERSION 15.0 % Platelet Count 281 140 - 450 HP CONVERSION k/cmm Specimen (Source) Anatomical Collection Method Collection Time Re ceived Time Location / / Volume Laterality 09/27/2001 1:26 PM EMPLOYMENT ADVISOR Hanny Cade MD LAB_1 Performing Organization Address City/State/ZIP Code Phon e Number HP CONVERSION ESR (09/27/2001 1:26 PM EMPLOYMENT ADVISOR) [facility] Method Time Signature Sedimentation Rate 3 0 - 20 HP CONVERSI ON mm/Hr Specimen (Source) Anatomical Collection Method Collection Time Re ceived Time Location / / Volume Laterality 09/27/2001 1:26 PM EMPLOYMENT ADVISOR Hanny Cade MD LAB_1 Performing Organization Address City/State/ZIP Code Phon e Number HP CONVERSION (ABNORMAL) Urinalysis Complete (09/27/2001 1:26 PM EMPLOYMENT ADVISOR) [facility] Method Time Signature Glucose, Negative Neg-Trac HP CONVERSION Qualitative U Protein Urine Negative Neg-Trac HP CONVERSION Ketones Trace (A) Negative HP CONVERSION U BILI Negative Negative HP CONVERSION U Specific 1.025 1.005 - 25 HP CONVERSION Effort Blood Urine Negative Negative HP CONVERSION pH Urine 5.5 4.5 - 7.5 HP CONVERSION Urobilinogen Negative 0.2 - 1.0 HP CONVERSION Urine Nitrite Urine Negative Negative HP CONVERSION Leukocyte Negative Negative HP CONVERSION Esterase Urine White Blood 0-2/HPF 0 - 3 HP CONVERSION Cells Urine Red Blood Cells 0-2/HPF 0 - 2 HP CONVERSION Urine Bacteria Urine Few (A) None HP CONVERSION Urine Mucus Moderate None HP CONVERSION Epithelial Cells Moderate Few /HPF HP CONVERSION Specimen (Source) Anatomical Collection Method Collection Time Re ceived Time Location / / Volume Laterality 09/27/2001 1:26 PM EMPLOYMENT ADVISOR Hanny Cade MD LAB_1 Performing Organization Address City/State/ZIP Code Phon e Number HP CONVERSION Test (Urine) (09/27/2001 1:26 PM EMPLOYMENT ADVISOR) Patholo gist Method Time Signature Urine Negative No normal [...] ceived Time Location / / Volume Laterality 09/27/2001 1:26 PM EMPLOYMENT ADVISOR Hanny Cade MD LAB_1 Performing Organization Address City/[facility] Phon e Number HP CONVERSION US Pelvic Pediatric (No EV) (08/08/2001 1:15 PM EMPLOYMENT ADVISOR) Anatomical Region Laterality Modality Pelvis Other Specimen (Source) Anatomical Location Collection Method / Collectio n Time Received Time / Laterality Volume Impressions 08/08/2001 1:15 PM EMPLOYMENT ADVISOR : ?NORMAL ULTRASOUND EXAMINATION OF T HE PELVIS. FINDINGS: ?THE EXAMINATION WAS PERFORMED LEO SABDOMINALLY WELL ?ENDOVAGINALLY. ?THE UTERUS MEASURES 9.0 X 3.6 X 4. 4 CM AND IS RETROFLEXED. ?THE ENDOMETRIAL STRIPE MEASURES 9 MM IN THICKNESS. ?THE RIGHT OVARY MEASURES 1.8 CM IN MAXIMUM DIAMETER WHILE ?THE LEFT OVARY MEASURES 2 CM IN MA XIMUM DIAMETER. ??NO ?ADNEXAL MASS LESIONS ARE IDENTIFIE D AND NO FREE FLUID IS ?NOTED. ?MT- TECH-ID : TRANS-ID: ? EDR Narrative 08/08/2001 1:15 PM EMPLOYMENT ADVISOR CLINICAL DATA: ?PELV. LOWER RT QUAD PAIN ?625.9 PT CX [id number] Procedure Note Ivan Black - 08/31/2016 CLINICAL DATA: PELV. LOWER RT QUAD PAIN 625.9 PT CX [id number] IMPRESSION : NORMAL ULTRASOUND EXAMINATION OF THE PE LVIS. FINDINGS: THE EXAMINATION WAS PERFORMED TRANSABDO MINALLY WELL ENDOVAGINALLY. THE UTERUS MEASURES 9.0 X 3.6 X 4.4 CM AND IS RETROFLEXED. THE ENDOMETRIAL STRIPE MEASURES 9 MM IN THICKNESS. THE RIGHT OVARY MEASURES 1.8 CM IN MAXI MUM DIAMETER WHILE THE LEFT OVARY MEASURES 2 CM IN MAXIMUM DIAMETER. NO ADNEXAL MASS LESIONS ARE IDENTIFIED AND NO FREE FLUID IS NOTED. [facility] TECH-ID : TRANS-ID: EDR Delaney Guillaume APRN, COAL INSPECTOR RAD US Strep Group A Antigen Test (07/18/2001 1:50 PM EMPLOYMENT ADVISOR) [facility] Time Signature Strep Group A Negative Negative HP CONVERSION Antigen Test Comment: Culture to follow. Specimen (Source) Anatomical Collection Method Collection Time Re ceived Time Location / / Volume Laterality 07/18/2001 1:50 PM EMPLOYMENT ADVISOR Ivan Allen MD LAB_1 Performing Organization Address City/State/ZIP Code Phon e Number HP CONVERSION Beta Strep Followup (07/18/2001 1:50 PM EMPLOYMENT ADVISOR) athologist Signature Strep Screen SEE TEXT HP CONVERSION Comment: Patient: IDANIA MORAN Rapid Strep Follow up Culture @ ? Collected: ??[id number] ??[id number] Source: Throat ?Processed: ?1409 ? R Final Report ------ ?[id number] ??[id number] No beta hemolytic Strep group A isolated . @ = Rapid F/U Cult Performed at ??[address] [place], [place] ?[address] Specimen (Source) Anatomical Collection Method Collection Time Re ceived Time Location / / Volume Laterality 07/18/2001 1:50 PM EMPLOYMENT ADVISOR Ivan Allen MD LAB_1 Performing Organization Address City/State/ZIP Code Phon e Number HP CONVERSION Anatomical Path-C (07/05/2001 1:21 PM EMPLOYMENT ADVISOR) P athologist Signature PAP Smear SEE TEXT No normal HP CONVERSION range Comment: Patient: IDANIA MORAN ? CERVICAL CYTOLOGY REPORT Pathology # ??[id number] ?Date Obtained: ? Date Received: LMP: ?01 CLINICAL HIST ? PRV SMR UNKNOWN CERVICAL SMEAR SPECIMEN ADEQUACY: ?? Satisfactory. ENDOCERVICAL CELLS: ??Present. CYTOLOGIC IMPRESSION: Within Normal Limits (Negative). Verified 07/15/01 by: ??LBM ?(electronic signature) Specimen (Source) Anatomical Collection Method Collection Time Re ceived Time Location / / Volume Laterality 07/05/2001 1:21 PM EMPLOYMENT ADVISOR Paco Bazzi MD LAB_1 Performing Organization Address City/[facility] Code Phon e Number HP CONVERSION (ABNORMAL) Lipid Panel and Direct LDL(If Needed) (07/05/2001 8:28 AM EMPLOYMENT ADVISOR) Patholo gist Method Time Signature Length Of Fast 11.5 Hours HP CONVERSION Cholesterol/HDL 4.9 No normal HP CONVERSION Ratio Screen range Cholesterol 194 125 - 199 HP CONVERSION mg/dL HDL Cholesterol 40 40 - 60 HP CONVERSION mg/dL Triglycerides 112 0 - 199 HP CONVERSION mg/dL LDL Calculated 132 (HH) 66 - 129 HP CONVERSION mg/dL Comment: Specimen (Source) Anatomical Collection Method Collection Time Re ceived Time Location / / Volume Laterality 07/05/2001 8:28 AM EMPLOYMENT ADVISOR Paco Bazzi MD LAB_1 Performing Organization Address City/[facility] Phon e Number HP CONVERSION Thyroid Stimulating Hormone (07/05/2001 8:28 AM EMPLOYMENT ADVISOR) P athologist Signature Thyroid 1.63 0.20 - HP CONVERSION Stimulating 5.50 Hormone uIU/mL Specimen (Source) Anatomical Collection Method Collection Time Re ceived Time Location / / Volume Laterality 07/05/2001 8:28 AM EMPLOYMENT ADVISOR Paco Bzazi MD LAB_1 Performing Organization Address City/[facility] Phon e Number HP CONVERSION documented in this encounter Visit Diagnoses Not on filedocumented in this encounter Care Teams Aquatics Assistant Department Head Relationship Specialty Start Date End Date Munira Combs PA-C PCP - General 09/25/10 03/14/15 [address] [place] [address] documented as of this encounter
--- OUTSIDE RECORDS SUMMARY | 2022-03-20 16:22 | XMS_ITS | Encounter Summary ---
:1975 Author Organization [employer] Address [address], [place] [address] Care Team Providers Name Role Phone Munira Combs PA-C Primary Care Provider Encounter Details Date Type Department Care Team Description 05/12/2004 PN Conversion Only NADIA CONVERSION Edwardo Mccarty [address] [place] [address] Social History Tobacco Use Types Packs/Day Years Used Date Smoking Tobacco: Never Assessed Sex Assigned at Date Recorded Female 05/09/2021 7:19 PM GUEST ASSOCIATE documented as of this encounter Plan of Treatment Upcoming Encounters Date Type Specialty Care Team Description 05/05/2022 Appointment Chemo Therapy/Infusion Services 09/15/2022 Telemedicine Gastroenterology Eusebio Haines MD [address] [place] [address] (Wo rk) documented as of this encounter Procedures Procedure Name Priority Date/Time Associated Diagnosis Comme nts STREP GROUP A Routine 05/12/2004 10:49 AM Results for this ANTIGEN TEST GUEST ASSOCIATE procedure are i n the results section. BETA STREP FOLLOWUP Routine 05/12/2004 10:49 AM R esults for this GUEST ASSOCIATE procedure are i n the results section. documented in this encounter Results Strep Group A Antigen Test (05/12/2004 10:49 AM GUEST ASSOCIATE) [facility] Time Signature Strep Group A Negative Negative HP CONVERSION Antigen Test Comment: Culture to follow. Specimen (Source) Anatomical Collection Method Collection Time Re ceived Time Location / / Volume Laterality 05/12/2004 10:49 AM GUEST ASSOCIATE Edwardo Mccarty MD LAB_1 Performing Organization Address City/State/ZIP Code Phon e Number HP CONVERSION Beta Strep Followup (05/12/2004 10:49 AM GUEST ASSOCIATE) athologist Signature Strep Screen SEE TEXT HP CONVERSION Comment: Patient: IGGY DUARTE Rapid Strep Follow up Culture @ ? Collected: ??[id number] ??[id number] Source: Throat ?Processed: ??[id number] ??[id number] Final Report ------ ?[id number] ??[id number] No beta hemolytic Strep group A isolated . @ = Rapid F/U Cult Performed at ??[address] [facility] [place], [place] ?[address] Specimen (Source) Anatomical Collection Method Collection Time Re ceived Time Location / / Volume Laterality 05/12/2004 10:49 AM GUEST ASSOCIATE Edwardo Mccarty MD LAB_1 Performing Organization Address City/[facility] Phon e Number HP CONVERSION documented in this encounter Visit Diagnoses Not on filedocumented in this encounter Care Teams Child Care Leader Relationship Specialty Start Date End Date Munira oCmbs PA-C PCP - General 09/25/10 03/14/15 [address] [place] [address] documented as of this encounter
--- OUTSIDE RECORDS SUMMARY | 2022-03-20 16:22 | XMS_ITS | Encounter Summary ---
:1975 Author Organization [employer] Address [address], [place] [address] Care Team Providers Name Role Phone Munira Combs PA-C Primary Care Provider Encounter Details Date Type Department Care Team Description 03/05/2003 PN Conversion Only WALLACE CONVERSIO Delaney Hines [address] [facility] [address], COMMUNITY ORGANIZATION AIDE, [place] [address] [place] [address] (Wo rk) Social History Tobacco Use Types Packs/Day Years Used Date Smoking Tobacco: Never Assessed Sex Assigned at Date Recorded Female 05/09/2021 7:19 PM [place] [employer] documented as of this encounter Plan of Treatment Upcoming Encounters Date Type Specialty Care Team Description 05/05/2022 Appointment Chemo Therapy/Infusion Services 09/15/2022 Telemedicine Gastroenterology Eusebio Haines MD [address] [place], [place] [address] (Wo rk) documented as of this encounter Procedures Procedure Name Priority Date/Time Associated Comments Diagnosis SEXUALLY TRANSMITTED Routine 03/05/2003 11:25 Res ults for this DISEASE PROBE AM CDT procedure are in the results section. documented in this encounter Results Sexually Transmitted Disease Probe (03/05/2003 11:25 AM CDT) [facility] Method Time Signature Sexually SEE TEXT HP CONVERSION Transmitted Disease Probe Comment: Patient: IGGY DUARTE Sexually Trans Disease Probe @ ?Collected: ??[id number] ??[id number] Source: ENDOCERV ?Processed: ??[id number] ??[id number] ? 1V Final Report ------ ?[id number] ??[id number] No Chlamydia trachomatis detected by amp lified DNA assay No Neisseria gonorrhoeae detected by amp lified DNA assay @ = Sexually Trans Disease Probe Perform ed at ??[address] [facility] [address] Specimen (Source) Anatomical Collection Method Collection Time Re ceived Time Location / / Volume Laterality 03/05/2003 11:25 AM CDT Delaney Guillaume APRN, PROPULSION ENGINEER LAB_1 Performing Organization Address City/State/ZIP Code Phon e Number HP CONVERSION documented in this encounter Visit Diagnoses Not on filedocumented in this encounter Care Teams Mens Locker Room Attendant Relationship Specialty Start Date End Date Munira Combs PA-C PCP - General 09/25/10 03/14/15 [address] [place] [address] documented as of this encounter
--- OUTSIDE RECORDS SUMMARY | 2022-03-20 16:22 | XMS_ITS | Encounter Summary ---
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 CERVICAL CYTOLOGY REPORT Pathology # ??[id number] ?Date Obtained: ? Date Received: LMP: CLINICAL HIST CONVENTIONAL PAP SMEAR-CERVIX SPECIMEN ADEQUACY: ?? Satisfactory. ENDOCERVICAL CELLS: ??Present. CYTOLOGIC IMPRESSION: Negative for intraepithelial lesion or m alignancy. Verified 08/25/02 by: ? 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
[2022-03-20 16:56] LABS: SARS PCR* Negative SARS-CoV-2 (Negative)
== END 2022-03-20 15:33 | disposition home or self-care (01) ==
LOC: NFLDREF 16:04
PROVIDERS: PCP Family Medicine; Visit Provider Obstetrics & Gynecology
DX: Z11.52 Encounter for screening for COVID-19 (principal)
CPT/HCPCS: 87635

== ENCOUNTER 2022-03-21 10:33 | Day surgery (SDC) | payer OTHER, SELFPAY ==
[2022-03-21] VITALS (19 sets, daily range): BP systolic 104–151; BP diastolic 66–114; PULSE 74–100; RESP 12–18; TEMP 36–36.8; O2SAT 87–100; BMI 35.1
[2022-03-21 12:45] LABS: Ur HCG Qualitative* Negative (Negative)
[2022-03-21 13:08] LABS: Hemoglobin* 13.8 gm/dL (12.0-16.0)
[2022-03-21] MEDS: CEFAZOLIN 2 GM INJ IVP (15:10)
--- NOTE | 2022-03-21 15:13 | P.NB_ITS ---
Nerve Block Nerve Block Time Seen by Provider: 15:13 Date Seen: 03/21/22 Type of block requested by surgeon for post-operative analgesia: TAP Side: bilateral Time out performed: Yes Verification of patient name: Yes Verification of date of : Yes Site marking: site marked Name of person performing procedure: Mohit Continuous monitoring Was continuous monitoring of O2 sat, B/P, surveillance system monitor, recorded every 15 minutes?: Yes Procedure Checklist: sterile prep, needles and gloves Ultrasound guided. Images saved: Yes Medications given in 5ml increments after negative aspiration: Marcaine %: 0.25 mL: 30 Needle gauge: 20 and Exparel mL: 10 Patient tolerated procedure well: Yes Additional comments: Needle noted adjacent to nerve Block Charges Block Charge (with Pro Fee): TAP Bilateral Use of Ultrasound Machine for Block: Yes- US Guidance/pain block
[2022-03-21] MEDS: LACTATED RINGERS 1000 ML 1,000 ML 100 ML IV ×2 (15:35→16:37)
--- NOTE | 2022-03-21 16:33 | SUR.OPER ---
PATIENT QUESTIONS ANSWERED SATISFACTORILY PREOPERATIVELY. PATIENT BROUGHT TO OR #1 PER CART. Patient positioned supine on OR #1 bed for the intubation. Pt. then moved into the lithotomy position for the procedure. Perioperative team padded and tucked the arms at pt. side. ?Final approval of positioning by surgeon.
--- NOTE | 2022-03-21 17:31 | PM.PROC ---
Procedure Note Time Seen by Provider: 17:32 Date Seen: 03/21/22 Date of procedure: 03/21/22 Will [facility] bill your pro fee for this procedure?: Yes Procedure: public health assistant op note: Preoperative diagnosis: 46 year-old with a personal history of breast cancer who desires bilateral salpingo oophorectomy and hysterectomy. Postoperative diagnosis: Same Procedure: Total laparoscopic hysterectomy, bilateral salpingo oophorectomy, diagnostic cystoscopy. Operative note: I was asked to assist Dr. Silvia Hendrix with the patient's surgery. I aided in dissection, visualization, and obtaining hemostasis. Please see Dr. Hendrix note for complete details. Surgeon: Beth Russell MD
--- NOTE | 2022-03-21 17:49 | W.PM.GYNPROC ---
Procedure Note Date Seen: 03/21/22 Procedure Details: PREOPERATIVE DIAGNOSES: 1. History of menorrhagia. 2. Breast cancer. POSTOPERATIVE DIAGNOSES: 1. History of menorrhagia. 2. Breast cancer. PROCEDURE: 1. Total laparoscopic hysterectomy. 2. Bilateral salpingo-oophorectomies, risk-reducing 3. Diagnostic cystoscopy. SURGEON: Simeon PUBLIC WORKS TECHNICIAN: Ruby Nava. ANESTHESIA: General endotracheal and TAP block. COMPLICATIONS: Small hymenal tear that occurred with removal the uterine manipulator and uterus. ESTIMATED BLOOD LOSS: 75 mL. DRAINS: Sierra to gravity. FINDINGS: Normal-appearing fallopian tubes and ovaries bilaterally. Normal-appearing uterus with 2 subserosal fibroids, one in the anterior midbody of the uterus, and the other near the left tubal ostia. DESCRIPTION OF PROCEDURE: After obtaining informed consent, the patient was taken to the operating room where general anesthesia was obtained without difficulty. She was prepared and draped in the normal sterile fashion in the low dorsal lithotomy position. A Sierra catheter was inserted into the bladder and left to gravity drainage. A medium Graves open-sided speculum was introduced into the vagina. The cervix was visualized and grasped along its anterior lip with a single-tooth tenaculum. The cervix was gently dilated to a #5 dilator. I then placed an extra large VCare uterine manipulator. The tenaculum and speculum were removed. The green VCare cup was digitally pressed up against the cervix and then cinched in place with the blue accessory cup. I then changed gloves and my attention was turned to the abdomen. The patient was found to have a somewhat short torso between umbilicus and symphysis pubis. The decision was made to place the scope above the umbilicus. A 12 mm transverse incision was then made within above the umbilicus using a scalpel. A direct entry technique was used to place an 11 mm laparoscopic port with CO2 gas set to a 5 mmHg. The trocar was removed leaving the sleeve in place. The CO2 gas flow was turned to high flow to achieve pneumoperitoneum. The 10 mm laparoscope was used then to carefully inspect the abdomen and pelvis with findings noted above. Pictures were taken for documentation purposes. The patient was placed in Trendelenburg positioning. Two additional ports were placed in the right and left lower quadrants under direct visualization, an 11 mm port in the right lower quadrant and a 5 mm port in the left lower quadrant. Once the ports were in place, the VCare manipulator was used to elevate the uterus. The ureters were identified bilaterally along their courses in the pelvic sidewalls. The VCare cup was visualized and palpated with a blunt grasper. The right tube and ovary were elevated with a graspers. The Olympus Powerseal device was used to seal the right infundibulopelvic ligament vessels and transect them. Excellent hemostasis was obtained. The remaining broad ligament attachments were sealed and transected with the Olympus Powerseal. The right round ligament was then sealed in a wide swath and transected with the Olympus Powerseal. Excellent hemostasis was obtained. The broad ligament was then opened using the Olympus Powerseal anteriorly and posteriorly along the cervix from the right within the confines of the VCare cup. Pressure was maintained on the uterine manipulator the whole time. The right uterine vessels were sealed in a wide swath and transected with the Olympus Powerseal, then the tissues over the VCare cup edge on the right side were thinned using the halo to the midline posteriorly and anteriorly so that the fascial layer could be identified. The left tube and ovary or elevated with a graspers. The Olympus Powerseal was used to seal the left infundibulopelvic ligament vessels and transect them. Excellent hemostasis was obtained. The remaining broad ligament attachments were sealed and transected with the Olympus Powerseal. The left round ligament was then sealed in a wide swath and transected with the Olympus Powerseal. Excellent hemostasis was obtained. The broad ligament was then opened using the Olympus Powerseal anteriorly and posteriorly along the cervix from the left within the confines of the VCare cup. Pressure was maintained on the uterine manipulator the whole time. The left uterine vessels were sealed in a wide swath and transected, then the tissues over the VCare cup edge on the left side were thinned using the Olympus Powerseal to the midline posteriorly and anteriorly so that the fascial layer could be identified. Once an adequate dissection was made circumferentially, the Olympus Powerseal was removed and the Wheelylab spatula used to incise the tissue circumferentially around the cervix within the groove of the VCare cup. Once the dissection was completed circumferentially, I was able to go below and remove the uterine manipulator and the uterus as well as both tubes and ovaries. A sterile glove containing a laparotomy sponge was placed into the vagina to aid in maintaining pneumoperitoneum. The vaginal cuff was reapproximated in a running fashion with a V-Loc suture starting from the left side and running across to the right and then back to the midline where the suture was cut flush with the tissues. The pelvis was copiously irrigated and hemostasis visualized. Preparations were then made for cystoscopy. Fluorescein was administered intravenously along with the IV fluids. The Sierra catheter was removed. The patient was flattened out. Cystoscopy was performed using sterile normal saline as distending medium. The bladder was carefully inspected and noted to be free of filling defects or suture material. Both ureteral orifices were easily visualized and fluorescein tinged urine jets were noted from both sides. The cystoscope was then removed. The Sierra catheter was replaced into the bladder. There was a small tear noted at the hymenal ring posteriorly that was bleeding. A figure of X suture of 3-0 chromic was placed for hemostasis. I then changed gloves again and my attention was once again turned to the abdomen. The abdomen and pelvis were again irrigated and inspected for hemostasis. Juan José was placed over the vaginal cuff and raw edges for extra hemostasis. There was also a small superficial tear in the epiploic fat overlying the sigmoid colon which was carefully inspected, and covered in a wrist also for additional hemostasis. All instruments were then removed under direct visualization. Pneumoperitoneum was allowed to escape. The fascia was reapproximated at the umbilicus with 0 Vicryl. The skin at all 3 port sites was closed in a subcuticular fashion with 4-0 Vicryl. Exofin was then placed over the incisions. The patient tolerated the procedure well. Sponge, lap, needle, and instrument counts were reported as correct x2. The patient was taken to the recovery room awake and in stable condition. She did receive 2 g of IV Ancef preoperatively. Uterine weight was 109 g. PATHOLOGY SPECIMEN(S): Uterus, bilateral fallopian tubes and bilateral ovaries.
--- NOTE | 2022-03-21 17:56 | W.ANESCHARGE ---
Anesthesia Charges Start Date/Time Anesthesia Start Date: 03/21/22 Anesthesia Start Time: 15:02 Stop Date/Time Anesthesia Stop Date: 03/21/22 Anesthesia Stop Time: 17:55 Summary Emergency: No
[2022-03-21] MEDS: MORPHINE 2 MG/ML inj IVP (19:31)
[2022-03-21] MEDS: PROCHLORPERAZINE 5 MG/ML VIAL 10 MG IV (19:31)
[2022-03-21] MEDS: ACETAMINOPHEN 500 MG TABLET 1000 MG PO (21:04)
[2022-03-21] MEDS: OXYBUTYNIN CHLORIDE 5 MG TABLET PO (22:18)
[2022-03-21] MEDS: KETOROLAC 30 MG/ML inj IVP (23:34)
[2022-03-21] MEDS: hydrOXYzine pamoate 25 MG CAPSULE PO (23:34)
[2022-03-22] VITALS: BP 101/61; PULSE 96; RESP 16; O2SAT 91
[2022-03-22 03:02] VITALS: BP 115/68; PULSE 92; RESP 16; TEMP 36.7; O2SAT 93
[2022-03-22] MEDS: ACETAMINOPHEN 500 MG TABLET 1000 MG PO (03:10)
[2022-03-22] MEDS: KETOROLAC 30 MG/ML inj IVP (06:29)
[2022-03-22 07:35] VITALS: BP 108/65; PULSE 88; RESP 16; TEMP 36.8; O2SAT 98
[2022-03-22 08:01] LABS: Hemoglobin* 12.1 gm/dL (12.0-16.0)
[2022-03-22 08:05] LABS: Creatinine* 0.6 mg/dL (0.5-1.5); Est. Creatinine Clearance* 107.67; Estimated Glomerular Filt Rate 113 ml/min
[2022-03-22] MEDS: SIMETHICONE 80 MG TAB.CHEW 160 MG PO (08:26)
--- NOTE | 2022-03-22 09:13 | PM.GYNDS1 ---
DS: Providers Provider Time Seen by Provider: :13 Date Seen: 03/22/22 Date of admission: 03/21/2020 she Primary care physician: Noemi Abernathy MD Attending Physician on discharge: Soheila Pak MD Date of Discharge: 03/22/22 DS: Diagnosis Discharge Diagnosis (1) Obesity with body mass index (BMI) of 30.0 to 39.9: Status: Acute (2) Malignant neoplasm of left breast: Status: Acute Problem details: Estrogen positive, progesterone positive, do recommend quitting control (3) Basal cell carcinoma (BCC): Status: Acute Problem details: sees bicycle messenger once a year (4) Edema of lower extremity: Status: Acute (5) 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 2012: L upper thigh BCC. (7) Anxiety: Status: Acute (8) Ulcerative colitis: Status: Chronic Problem details: entyvio COLOR TESTER-Discharge Summary Hospital Course Hospital Course Narrative: Patient is a 46 year old admitted on 03/21/2022 for scheduled surgery. Indication for surgery: History of menorrhagia and breast cancer. Patient underwent a total laparoscopic hysterectomy, bilateral salpingo oophorectomies, and diagnostic cystoscopy. Intraoperative findings were notable for: Normal-appearing fallopian tubes and ovaries bilaterally.? Normal-appearing uterus with 2 subserosal fibroids, one in the anterior midbody of the uterus, and the other near the left tubal ostia. She had an uncomplicated surgery. Postoperative course has been uneventful. Vitals have been stable. She has remained afebrile. Today, on postoperative day 1, she reports the pain is well controlled. She has been able to ambulate Without difficulty. She is tolerating regular diet. She is passing flatus. Gill catheter has been removed, and she is voiding without difficulty. Time Spent with Patient Time attestation: Total time spent providing and/or coordinating discharge services: Time spent: Less than 30 minutes COLOR TESTER - Exam Physical Exam: Vital signs: Temp Pulse Resp BP Pulse Ox O2 Del Method O2 Flow Rate 98.1 F 92 16 115/68 93 6 03/22/22 03:02 03/22/22 03:02 03/22/22 03:02 03/22/22 03:02 03/22/22 03:02 03/22/22 03:02 03/21/22 17:54 Narrative: Physical exam: General: No acute distress Psych: Alert and oriented x3, full affect Heart: Regular rate and rhythm, no murmur rub or gallop Lungs: Clear to auscultation bilaterally Abdomen: Normoactive bowel sounds, soft, no tenderness, rebound, or guarding, no masses, no hepatosplenomegaly, no hernias Incision: 3 port sites - clean and dry. No erythema, purulent discharge, or significant tenderness Lower extremities: 2+ edema bilaterally no erythema Pelvic exam: Deferred COLOR TESTER - DS: Data Data Completed and Pending Labs on day of discharge: Labs from last 24 hours 03/22/22 03/22/22 03/21/22 07:30 07:30 13:00 Hgb 12.1 Creatinine 0.6 Estimated Creat Clear 107.67 Estimated GFR 113 Urine HCG, Qual Blood Type O Positive Antibody Screen NEGATIVE 03/21/22 03/21/22 13:00 12:30 Hgb 13.8 Creatinine Estimated Creat Clear Estimated GFR Urine HCG, Qual Negative Blood Type Antibody Screen Procedures Procedures: Procedures Operation Date: 03/21/22 12:05 Actual Procedure Side Surgeon p Total Laparoscopic Hysterectomy, Bilateral Laparoscopic Salpingo-Oopherectomy, Dx Cystoscopy Silvia Hendrix MD s Bilateral Laparoscopic Salpingo-Oopherectomy, Dx Cystoscopy Silvia Hendrix MD Discharge Plan Discharge Disposition: Home, Self-Care Discharging Surgeon: Soheila Pak Follow-Up Appointment: 2 weeks [facility] Prescriptions: New simethicone 80 mg Tablet,Chewable 160 mg PO Q4H PRN (Reason: gas) Qty: 30 0RF acetaminophen [Tylenol Extra Strength] 500 mg tablet 500 mg PO Q6H PRNQty: 30 0RF Rx Instructions: Alternate with ibuprofen. Do not exceed 3 g in a 24 hour period. ibuprofen 600 mg tablet 600 mg PO Q6H PRNQty: 30 0RF Rx Instructions: Alternate with Tylenol polyethylene glycol 3350 [Miralax] 17 gram/dose powder 17 g PO DAILY Qty: 119 0RF senna 8.6 mg capsule 8.6 mg PO DAILY Qty: 14 0RF oxycodone 5 mg capsule 5 mg PO Q6H PRN (Reason: pain) Qty: 20 0RF Continued dicyclomine 10 mg capsule 10 mg PO QID loratadine 10 mg tablet 10 mg PO QDAY triamterene-hydrochlorothiazid 37.5-25 mg capsule 1 cap PO QAM tamoxifen 20 mg tablet 20 mg PO QDAY Calcium 600 with Vitamin D3 600 mg-10 mcg (400 unit) tablet,chewable 1 tab PO BID multivitamin Tablet 1 tab PO QAM oxybutynin chloride 5 mg tablet 5 mg PO BID Qty: 60 1RF Discontinued norethindrone-ethin estradiol 1-35 mg-mcg tablet 1 tab PO QDAY ibuprofen 100 mg tablet 200 mg PO Q6H PRN peg 3350-electrolytes [Golytely] 236-22.74-6.74 -5.86 gram recon soln 240 ml PO Q15M Qty: 4000 0RF Rx Instructions: until fecal effluent is clear peg 3350-electrolytes [Golytely] 236-22.74-6.74 -5.86 gram recon soln 240 ml PO Q15M Qty: 4000 0RF Rx Instructions: until fecal effluent is clear Activity Level: Activity as Tolerated and No strenuous activity Activity Detail: Pelvic rest for 6 weeks Discharge Diet: Regular Additional Instructions: LAPAROSCOPY POSTOPERATIVE INSTRUCTIONS ACTIVITY No heavy lifting/pushing/pulling for 4-6 weeks. Do not lift anything more than about 5-10 lbs (such as laundry, groceries, children, pets), vacuum, push heavy doors or grocery carts, etc. You may climb stairs as tolerated. Do not put anything in the vagina for 6 weeks after surgery unless otherwise instructed by your doctor (including tampons, douching, sexual intercourse, etc). No driving for about 2 weeks after surgery, while you are taking narcotic pain medication, or until you feel that you are ready. Practice checking your blind spot and stepping hard on the brake.? Avoid sitting or lying in bed for more than 2 hours at a time while you are awake to reduce your risk of blood clots. You may return to work when directed by your physician. Please contact your doctor if you need any return to work letters or medical leave paperwork to be completed. ? WOUND CARE You will have 3 small incisions on your abdomen. There will be dissolvable stitches under your skin that do not need to be removed. Shower daily after surgery. Clean your incision with mild antibacterial soap and water. Pat your incision dry with a clean towel. No tub baths until wound is completely healed. Wash your hands frequently, especially before touching your incision, changing any dressings, after using the restroom, and before eating. ? PAIN MANAGEMENT Take your oral pain medication as needed. You should be taking Ibuprofen 600mg every 6 hours with 1 gram of Tylenol every 6 hours. You can take these together every six hours or alternate them every 3 hours. You should then take the oxycodone as needed if you have breakthrough pain on top of the Tylenol and Ibuprofen. Some pain medications can cause constipation so you should take a stool softener (i.e. senna/colace) while you are on these medications. You may also take milk of magnesia or Miralax for constipation. ? WHAT TO EXPECT AT HOME Recovery from surgery is generally 2-4 weeks, but sometimes longer for more strenuous activity. It is normal to be very tired during this time. It is normal to have some drainage or a small amount of vaginal bleeding after surgery which may last up to 6 weeks. You may go home with a gill catheter in your bladder. You will need to follow up for a nurse visit in 7-10 days for removal. You will most likely experience gas pain, abdominal swelling, or shoulder pain for 24-72 hours after surgery. This is from the carbon dioxide gas put into your abdomen to better visualize your organs. A warm shower, heating pad, and/or walking may help. ? WHEN TO CALL YOUR DOCTOR: Fever (>100.4?F or 38.0?C) or chills. Incision problems such as redness, warmth, swelling, or foul-smelling drainage. Severe nausea or persistent vomiting. Bright red vaginal bleeding (soaking >1 pad/hour) or foul-smelling vaginal drainage. Severe pain not relieved with pain medication. Pain and swelling in your legs, especially if it is only on one side and not the other. Pain with urination, cloudy urine, or foul-smelling urine. Or if you have any other problems or questions. ? CALL 911 OR GO TO THE EMERGENCY ROOM IF YOU HAVE:?Any shortness of breath, difficulty breathing, or chest pain. Forms: Work/Release Restrictions Follow-up: Noemi Abernathy MD [Primary Care Provider] - Silvia Hendrix MD [Staff Physician] - Soheila Pak MD [Staff Physician] - Discharge Orders: Discharge Order (Routine); Ordered 03/22/22 Ordered By: Soheila Pak
[2022-03-22] MEDS: DICYCLOMINE HCL 10 MG CAPSULE PO (09:22)
[2022-03-22] MEDS: LORATADINE 10 MG TABLET PO (09:48)
[2022-03-22] MEDS: TAMOXIFEN CITRATE 20 MG PO (09:48)
[2022-03-22] MEDS: TRIAMTERENE-HCTZ 37.5-25 MG TB 1 TAB PO (09:48)
[2022-03-22] MEDS: OXYBUTYNIN CHLORIDE 5 MG TABLET PO (09:48)
== END 2022-03-22 10:40 | disposition home or self-care (01) ==
LOC: OR 10:36 → OB 19:23
PROVIDERS: PCP Family Medicine; Visit Provider Obstetrics & Gynecology
PROC: 0UT94ZZ Resection of Uterus, Percutaneous Endoscopic Approach (ICD-10-PCS; CPT 58571; principal; 2022-03-21 11:45)
DX: N92.0 Excessive and frequent menstruation with regular cycle (principal); D25.2 Subserosal leiomyoma of uterus; C50.912 Malignant neoplasm of unspecified site of left female breast; Z17.0 Estrogen receptor positive status [ER+]; F41.9 Anxiety disorder, unspecified; K51.90 Ulcerative colitis, unspecified, without complications; E66.9 Obesity, unspecified; Z68.35 Body mass index [BMI] 35.0-35.9, adult; Z85.820 Personal history of malignant melanoma of skin; Z85.828 Personal history of other malignant neoplasm of skin
CPT/HCPCS: 58571; 00840; 36415; 64488; 76942; 81025; 82565; 85018; 86850; 86900; 86901; 88307; A9270; C9290; J0330; J0690; J0780; J1100; J1200; J1885; J2270; J2405; J2704; J3010; J3490; J7120; S0187

== ENCOUNTER 2022-05-09 19:08 | Outpatient (CLI) | payer OTHER, SELFPAY ==
--- OUTSIDE RECORDS SUMMARY | 2022-05-09 19:17 | XMS_ITS ---
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 Past Plans No past plan information found. Radiation Treatments Plan Last Treated Elapsed Days Fractions Prescribed Prescribed Total On Treated Fraction Dose Dose [id number] 11/04/2021 24 4 of 4 250 cGy 1,000 cGy [id number] 10/31/2021 20 15 of 15 267 cGy 4,005 cGy Reference Point Last Treated On Elapsed Days Session Dose Total Dos e [id number] 11/04/2021 24 250 cGy 5,005 cGy
--- OUTSIDE RECORDS SUMMARY | 2022-05-09 19:17 | XMS_ITS | Encounter Summary ---
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 [facility] Procedures Prior Auth Rad Tx [place] RADTN [place] DEL >=1 MEV COMPLEX [address] [place] [address] Referral ID Status Reason Start Date Expiration Date Visits Requ ested Visits Authorized [id number] Closed 10/10/2021 09/20/2022 19 19 Encounter Details Date Type Department Care Team Description 11/02/2021 Hospital Encounter Department of Radiation Ivan Buchanan, Oncology in [place] [address] [facility] [address], [place] [phone] Social History Tobacco Use Types Packs/Day Years Used Date Smoking Tobacco: Never Assessed Alcohol Habits Answer Date Recorded How often do you have a drink containing alcohol? Monthly or less 10/12/2021 How many drinks containing alcohol do you have on a 1 or 2 10/12/2021 typical day when you are drinking? How often do you have six or more drinks on one Never 10/12/2021 occasion? Social Isolation Answer Date Recorded In a typical week, how many times do you More than three suzie es a week 10/12/2021 talk on the phone with family, friends, or neighbors? How often do you get together with friends Twice a week 10/12/2021 or relatives? How often do you attend hindu or Never 2021 bahai services? Do you belong to any clubs or Yes 10/12/2021 organizations such as hindu groups, unions, fraternal or athletic groups, or school groups? How often do you attend meetings of the More than 4 times pe r year 10/12/2021 clubs or organizations you belong to? Are you now , , , Living with partner 10/12/2021 , never or living with a partner? Physical Activity Answer Date Recorded On average, how many days per week do you engage in moderate to 5 days 10/12/2021 strenuous exercise (like walking fast, running, jogging, dancing, swimming, biking, or other activities that cause a light or heavy sweat)? On average, how many minutes do you engage in exercise at th is 30 min 10/12/2021 level? Stress Answer Date Recorded Do you feel stress - tense, restless, nervous, or Only a lit tle 10/12/2021 anxious, or unable to sleep at night because your mind is troubled all the time - these days? Financial Resource Strain Answer Date Recorded How hard is it for you to pay for the very basics like Not h wilder at all 10/12/2021 food, housing, medical care, and heating? Intimate Partner Violence Answer Date Recorded Within the last year, have you been afraid of your partner o r No 10/12/2021 ex-partner? Within the last year, have you been humiliated or emotionall y No 10/12/2021 abused in other ways by your partner or ex-partner? Within the last year, have you been kicked, hit, slapped, or No 10/12/2021 otherwise physically hurt by your partner or ex-partner? Within the last year, have you been raped or forced to have any No 10/12/2021 kind of sexual activity by your partner or ex-partner? Food Insecurity Answer Date Recorded Within the past 12 months, you worried that your food would Never true 10/12/2021 run out before you got money to buy more. Within the past 12 months, the food you bought just didn't N ever true 10/12/2021 last and you didn't have money to get more. Transportation Needs Answer Date Recorded In the past 12 months, has lack of transportation kept you f rom No 10/12/2021 medical appointments or from getting medications? In the past 12 months, has lack of transportation kept you f rom No 10/12/2021 meetings, work, or getting things needed for daily living? Housing Stability Answer Date Recorded In the last 12 months, was there a time when you were not ab le No 10/12/2021 to pay the mortgage or rent on time? In the last 12 months, how many places have you lived? 1 10/12/2021 In the last 12 months, was there a time when you did not hav e a No 10/12/[address] or slept in a fdc (including now)? Education Answer Date Recorded What is the highest level of school Associate degree: any valdovinos, 10/11/2021 you have completed or the highest technical, or vocational p ismaelram degree you have received? Sex Assigned at Date Recorded Female 10/11/2021 8:54 PM CDT documented as of this encounter Medications at Time of Discharge Medication Sig Dispensed Refills Start Date End Date albuterol 90 mcg/actuation 0 2 inhaler azelastine (ASTELIN) 137 0 09/05/2021 mcg/spray (0.1 %) nasal spray budesonide (ENTOCORT EC) 3 Take 9 mg by mouth. 0 10/27/2019 mg 24 hr capsule calcium carbonate-mag Chew. 0 02/15/2012 hydroxid 1,000-200 mg tablet,chewable cholestyramine-mineral oil as needed. 0 0 in triple paste 5-5 % dicyclomine (BENTYL) 20 mg TAKE 1 TABLET BY 0 11/2017 tablet MOUTH 4 TIMES DAILY NEEDED doxylamine 25 mg tablet Bedtime 0 hydrocortisone (ANUSOL-HC) Insert 25 mg into 0 25 mg suppository the rectum. hydrocortisone (CORTENEMA) Insert 100 mg into 0 0 08/15/2019 100 mg/60 mL enema the rectum. hyoscyamine (LEVSIN) 0.125 Take 0.125 mg by 0 mg SL tablet mouth. loratadine (CLARITIN) 10 mg Daily 0 tablet LORazepam (ATIVAN) 0.5 mg TAKE 1 TO 2 TABLETS 0 0 10/12/2021 tablet BY MOUTH EVERY 4 HOURS NEEDED FOR NAUSEA/VOMITING magnesium 200 mg tablet Take 400 mg by mouth 0 every morning before breakfast. mesalamine (CANASA) 1,000 Insert 1,000 mg into 0 07/01/2019 mg suppository the rectum. bayryduzgxsl-Xk-opic-minera Take 1 tablet by 0 ls tablet mouth daily. naproxen (NAPROSYN) 250 mg Twice A Day 0 tablet norethindrone-ethinyl TAKE ONE TABLET BY 0 2019 estradiol (ORTHO-NOVUM MOUTH ONE TIME DAILY 1-35/NORTREL 1-35) 1 mg-35 CONTINOUSLY. mcg per tablet phentermine (ADIPEX-P) 37.5 Take 37.5 mg by 0 mg capsule mouth. phentermine (FASTIN) 30 mg Take 30 mg by mouth. 0 capsule predniSONE (DELTASONE) 10 4 tabs daily for 2 0 mg tablet wk, 3 tabs daily for 1 wk, 2 tabs daily for 1 wk, then decrease by 1/2 tab weekly until done triamcinolone (KENALOG) 0.1 Apply topically. 0 % ointment triamterene-hydroCHLOROthia TAKE 1 TABLET BY 0 zide (MAXZIDE-25) 37.5-25 MOUTH DAILY. mg per tablet documented as of this encounter Plan of Treatment Not on filedocumented as of this encounter Visit Diagnoses Not on filedocumented in this encounter
--- OUTSIDE RECORDS SUMMARY | 2022-05-09 19:17 | XMS_ITS | Encounter Summary ---
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 [facility] Procedures Prior Auth Rad Tx [place] RADTN [place] DEL >=1 MEV COMPLEX [address] [place] [address] Referral ID Status Reason Start Date Expiration Date Visits Requ ested Visits Authorized [id number] Closed 10/10/2021 09/20/2022 19 19 Encounter Details Date Type Department Care Team Description 11/03/2021 Hospital Encounter Department of Radiation Ivan Buchanan, Oncology in [place] [address] [facility] [address] [place], [place] [phone] Social History Tobacco Use Types Packs/Day Years [...] or relatives? How often do you attend yarsani or Never 2021 christianity services? Do you belong to any clubs or Yes 10/12/2021 organizations such as yarsani groups, unions, fraternal or athletic groups, or [...] place to sleep or slept in a intermediate (including now)? Education Answer Date Recorded What [...] into 0 07/01/2019 mg suppository the rectum. fzxlnpzhspkw-Ao-nqsu-minera Take 1 tablet by 0 ls tablet [...]
--- OUTSIDE RECORDS SUMMARY | 2022-05-09 19:17 | XMS_ITS | Encounter Summary ---
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 [facility] Procedures Prior Auth Rad Tx [place] RADTN [place] DEL >=1 MEV COMPLEX [address] [place] [address] Referral ID Status Reason Start Date Expiration Date Visits Requ ested Visits Authorized [id number] Closed 10/10/2021 09/20/2022 19 19 Encounter Details Date Type Department Care Team Description 11/01/2021 Hospital Encounter Department of Radiation Ivan Buchanan, Oncology in [place] [address] [facility] [address] [place], [place] [address] [phone] Social History Tobacco Use Types Packs/Day Years [...] or relatives? How often do you attend gnosticism or Never 2021 mormonism services? Do you belong to any clubs or Yes 10/12/2021 organizations such as gnosticism groups, unions, fraternal or athletic groups, or [...] place to sleep or slept in a senior care (including now)? Education Answer Date Recorded What [...] into 0 07/01/2019 mg suppository the rectum. xschuqkrejxj-Bb-sybd-minera Take 1 tablet by 0 ls tablet [...]
--- OUTSIDE RECORDS SUMMARY | 2022-05-09 19:17 | XMS_ITS | Encounter Summary ---
:1975 Author Organization [facility] Address [address] [place] [address] Care Team Providers Name Role Phone Unavailable Primary Care Provider Unavailable Reason for Visit Radiation Therapy (Routine) - Closed Specialty Diagnoses / Procedures Referred By Contact Refer red To Contact Diagnoses Malignant Neoplasm Of Breast Upper Inner Quadrant Female Left (HCC) Alejandro Buchanan M.D. [facility] Procedures Prior Auth Rad Tx [place] RADTN [place] DEL >=1 MEV COMPLEX [address] [place] [address] Referral ID Status Reason Start Date Expiration Date Visits Requ ested Visits Authorized [id number] Closed 10/10/2021 09/20/2022 19 19 Encounter Details Date Type Department Care Team Description 10/26/2021 Hospital Encounter Department of Radiation Ivan Buchanan, Oncology in [place] [address] [facility] [address] [place], [place] [phone] Social History Tobacco Use Types Packs/Day Years [...] or relatives? How often do you attend synagogue or Never 2021 rastafarian services? Do you belong to any clubs or Yes 10/12/2021 organizations such as synagogue groups, unions, fraternal or athletic groups, or [...] to sleep or slept in a senior living (including now)? Education Answer Date Recorded What [...] into 0 07/01/2019 mg suppository the rectum. awggznsypiqg-Dw-xpuo-minera Take 1 tablet by 0 ls tablet [...]
--- OUTSIDE RECORDS SUMMARY | 2022-05-09 19:17 | XMS_ITS | Encounter Summary ---
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 [facility] Procedures Prior Auth Rad Tx [place] RADTN [place] DEL >=1 MEV COMPLEX [address] [place] [address] Referral ID Status Reason Start Date Expiration Date Visits Requ ested Visits Authorized [id number] Closed 10/10/2021 09/20/2022 19 19 Encounter Details Date Type Department Care Team Description 10/21/2021 Hospital Encounter Department of Radiation Ivan Buchanan, Oncology in [place] [address] [facility] [address] [place], [place] [address] [phone] Social History Tobacco Use Types Packs/Day Years [...] or relatives? How often do you attend sabianist or Never 2021 oriental orthodox services? Do you belong to any clubs or Yes 10/12/2021 organizations such as sabianist groups, unions, fraternal or athletic groups, or [...] place to sleep or slept in a usp (including now)? Education Answer Date Recorded What [...] 11/2017 tablet MOUTH 4 TIMES DAILY NEEDED hydrocortisone (ANUSOL-HC) Insert 25 mg into 0 25 mg suppository the rectum. hydrocortisone (CORTENEMA) Insert 100 mg into 0 0 08/15/2019 100 mg/60 mL enema the rectum. hyoscyamine (LEVSIN) 0.125 Take 0.125 mg by 0 mg SL tablet mouth. LORazepam (ATIVAN) 0.5 mg TAKE 1 TO 2 TABLETS 0 0 10/12/2021 tablet BY MOUTH EVERY 4 HOURS NEEDED FOR NAUSEA/VOMITING mesalamine (CANASA) 1,000 Insert 1,000 mg into 0 07/01/2019 mg suppository the rectum. gvimsdaowtbm-Cg-uqtd-minera Take 1 tablet by 0 ls tablet mouth daily. norethindrone-ethinyl TAKE ONE TABLET BY 0 2019 [...]
--- OUTSIDE RECORDS SUMMARY | 2022-05-09 19:17 | XMS_ITS | Encounter Summary ---
:1975 Author Organization [facility] Address [address] [place] [address] Care Team Providers Name Role Phone Unavailable Primary Care Provider Unavailable Reason for Visit Radiation Therapy (Routine) - Closed Specialty Diagnoses / Procedures Referred By Contact Refer red To Contact Diagnoses Malignant Neoplasm Of Breast Upper Inner Quadrant Female Left (HCC) Alejandro Buchanan M.D. [facility] Procedures Prior Auth Rad Tx [place] RADTN [place] DEL >=1 MEV COMPLEX [address] [place] [address] Referral ID Status Reason Start Date Expiration Date Visits Requ ested Visits Authorized [id number] Closed 10/10/2021 09/20/2022 19 19 Encounter Details Date Type Department Care Team Description 10/27/2021 Hospital Encounter Department of Radiation Ivan Buchanan, Oncology in [place] [address] [facility] [address] [place], [place] [address] [phone] Social History Tobacco Use Types Packs/Day Years [...] or relatives? How often do you attend denominational or Never 2021 congregational services? Do you belong to any clubs or Yes 10/12/2021 organizations such as denominational groups, unions, fraternal or athletic groups, or [...] place to sleep or slept in a snf (including now)? Education Answer Date Recorded What [...] into 0 07/01/2019 mg suppository the rectum. guvtihncrmbb-Yu-obqx-minera Take 1 tablet by 0 ls tablet [...]
--- OUTSIDE RECORDS SUMMARY | 2022-05-09 19:17 | XMS_ITS | Encounter Summary ---
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 [facility] Procedures Prior Auth Rad Tx [place] RADTN [place] DEL >=1 MEV COMPLEX [address] [place] [address] Referral ID Status Reason Start Date Expiration Date Visits Requ ested Visits Authorized [id number] Closed 10/10/2021 09/20/2022 19 19 Encounter Details Date Type Department Care Team Description 10/28/2021 Hospital Encounter Department of Radiation Ivan Buchanan, Oncology in [place] [address] [facility] [address] [place], [place] [address] [phone] Social History Tobacco Use Types Packs/Day Years [...] or relatives? How often do you attend gnosticist or Never 2021 judaism services? Do you belong to any clubs or Yes 10/12/2021 organizations such as gnosticist groups, unions, fraternal or athletic groups, or [...] place to sleep or slept in a penitentiary (including now)? Education Answer Date Recorded What [...] into 0 07/01/2019 mg suppository the rectum. zrtbkdbfqiuz-Ks-pjut-minera Take 1 tablet by 0 ls tablet [...]
--- OUTSIDE RECORDS SUMMARY | 2022-05-09 19:17 | XMS_ITS | Clinical Summary ---
:1975 Author Organization [facility] Address [address] [place] [address] Care Team Providers Name Role Phone Unavailable Primary Care Provider Unavailable Source Comments Patient records contain information from all sites at [facility]. For routine questions regarding patient records, call [phone] during business hours, M-F 8:00 AM - 5:00 PM Central Time. Record requests for emergency care only can be directed to [phone] at any time.[facility] Allergies No known active allergies Medications Medication Sig Dispensed Refills Start Date End Date Status calcium carbonate-mag Chew. 0 02/15/2012 Active hydroxid 1,000-200 mg tablet,chewable triamcinolone (KENALOG) Apply topically. 0 0 Active 0.1 % ointment xdiiityvegvw-Ku-hidk-mi Take 1 tablet by 0 2 Active nerals tablet mouth daily. cholestyramine-mineral as needed. 0 12/03/2019 Active oil in triple paste 5-5 % norethindrone-ethinyl TAKE ONE TABLET 0 10/27/2019 Active estradiol (ORTHO-NOVUM BY MOUTH ONE TIME 1-35/NORTREL 1-35) 1 DAILY mg-35 mcg per tablet CONTINOUSLY. budesonide (ENTOCORT Take 9 mg by 0 10/27/2019 Active EC) 3 mg 24 hr capsule mouth. dicyclomine (BENTYL) 20 TAKE 1 TABLET BY 0 8 Active mg tablet MOUTH 4 TIMES DAILY NEEDED hydrocortisone Insert 100 mg 0 08/15/2019 Active (CORTENEMA) 100 mg/60 into the rectum. mL enema hydrocortisone Insert 25 mg into 0 07/15/2019 Active (ANUSOL-HC) 25 mg the rectum. suppository mesalamine (CANASA) Insert 1,000 mg 0 07/01/2019 Active 1,000 mg suppository into the rectum. hyoscyamine (LEVSIN) Take 0.125 mg by 0 09/12/2019 Active 0.125 mg SL tablet mouth. phentermine (FASTIN) 30 Take 30 mg by 0 Active mg capsule mouth. phentermine (ADIPEX-P) Take 37.5 mg by 0 06/13/2019 Active 37.5 mg capsule mouth. predniSONE (DELTASONE) 4 tabs daily for 0 08/25/2019 Active 10 mg tablet 2 wk, 3 tabs daily for 1 wk, 2 tabs daily for 1 wk, then decrease by 1/2 tab weekly until done triamterene-hydroCHLORO TAKE 1 TABLET BY 0 9 Active thiazide (MAXZIDE-25) MOUTH DAILY. 37.5-25 mg per tablet LORazepam (ATIVAN) 0.5 TAKE 1 TO 2 0 10/12/2021 Active mg tablet TABLETS BY MOUTH EVERY 4 HOURS NEEDED FOR NAUSEA/VOMITING naproxen (NAPROSYN) 250 Twice A Day 0 Active mg tablet loratadine (CLARITIN) Daily 0 Active 10 mg tablet doxylamine 25 mg tablet Bedtime 0 Active azelastine (ASTELIN) 0 09/05/2021 Active 137 mcg/spray (0.1 %) nasal spray albuterol 90 0 09/05/2021 Active mcg/actuation inhaler magnesium 200 mg tablet Take 400 mg by 0 Active mouth every morning before breakfast. Active Problems Problem Noted Date Malignant Neoplasm Of Breast Upper Inner Quadrant Fema le Left 05/31/2021 Cancer Staging: Pathologic stage from : Stage IA (pT2, pN0(sn), cM0, G2, ER+, AR+, HER2-) - Unsigned Pathologic stage from 05/10/2021: Stage IA (pT1a, pN0(sn), cM0, G1, ER-, AR-, HER2-) - Unsigned Social History Tobacco Use Types Packs/Day Years [...] or relatives? How often do you attend oriental orthodox or Never 2021 roman catholic services? Do you belong to any clubs or Yes 10/12/2021 organizations such as oriental orthodox groups, unions, [employer] or athletic groups, or school groups? How [...] place to sleep or slept in a mcfp (including now)? Education Answer Date Recorded What is the highest level of school Associate degree: any valdovinos, 10/11/2021 you have completed or the highest technical, or vocational p haydee degree you have received? Sex Assigned at Date Recorded Female 10/11/2021 8:54 PM CDT Last Filed Vital Signs Vital Sign Reading Time Taken Comments Blood Pressure 123/59 10/07/2021 7:55 AM CDT Pulse 97 10/07/2021 7:55 AM CDT Temperature 36.3 ??C (97.4 ??F) 11/03/2021 4:03 PM CDT Respiratory Rate - - Oxygen Saturation - - Inhaled Oxygen Concentration - - Weight 98.8 kg (217 lb 13 oz) 11/03/2021 4:03 PM CDT Height - - Body Mass Index - - Plan of Treatment Health Maintenance Due Date Last Done Comments CT Colonography 1977 Cervical Cancer Screening 1975 Cologuard 1975 Colonoscopy 1977 Colorectal Cancer Screening 1975 Creatinine Level 1977 FIT 1977 Fasting Glucose for 1977 Diabetes Screening HIV Screening 1977 Hepatitis C Screening 1977 Lipid (Cholesterol) 1977 Screening Potassium Level 1977 Sodium Level 1977 Pneumococcal vaccine (0-64 1983 years) (1 - PCV) Depression Screening 06/25/2021 (Annual PHQ-2) Influenza Vaccine (#1) 2022 03/23/2021, 03/31/2019, 03/22/2018, Additional history exists Mammogram 05/10/2022 05/10/2021, 05/10/2021, 03/29/2021, Additional history exists DTaP,Tdap,and Td Vaccines 02/11/2031 02/11/2021, 07/04/2010 , (3 - Td or Tdap) 11/30/2003 Hepatitis B Vaccines Completed 02/08/2006, 01/02/2002, 08/09/2001 COVID-19 Vaccine Completed 04/21/2022, 03/23/2021, 07/06/2020, Additional history exists HPV Vaccines Aged Out No longer eligib le based on patient 's age to complete this topic Insurance Payer Benefit Plan / Subscriber ID Effective Phone Address T ype Group Dates PREFERREDONE PREFERREDONE [id number] 2020-Pre [phone] PPO ADMINISTRATIVE ADMINISTRATIVE sent [id number] SERVICES SERVICES [place] [id number] [phone] I ndependence [address] (Home) [place] [id number]
--- OUTSIDE RECORDS SUMMARY | 2022-05-09 19:17 | XMS_ITS | Encounter Summary ---
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 [facility] Procedures Prior Auth Rad Tx [place] RADTN [place] DEL >=1 MEV COMPLEX [address] [place] [address] Referral ID Status Reason Start Date Expiration Date Visits Requ ested Visits Authorized [id number] Closed 10/10/2021 09/20/2022 19 19 Encounter Details Date Type Department Care Team Description 10/24/2021 Hospital Encounter Department of Radiation Ivan Buchanan, Oncology in [place] [address] [facility] [address] [place], [place] [address] [phone] Social History Tobacco Use Types Packs/Day Years [...] or relatives? How often do you attend judaism or Never 2021 adventist services? Do you belong to any clubs or Yes 10/12/2021 organizations such as judaism groups, unions, fraternal or athletic groups, or [...] place to sleep or slept in a custodial (including now)? Education Answer Date Recorded What [...] into 0 07/01/2019 mg suppository the rectum. vgxuorwdpgpj-Oj-fyuk-minera Take 1 tablet by 0 ls tablet [...]
--- OUTSIDE RECORDS SUMMARY | 2022-05-09 19:17 | XMS_ITS | Encounter Summary ---
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 [facility] Procedures Prior Auth Rad Tx [place] RADTN [place] DEL >=1 MEV COMPLEX [address] [place] [address] Referral ID Status Reason Start Date Expiration Date Visits Requ ested Visits Authorized [id number] Closed 10/10/2021 09/20/2022 19 19 Encounter Details Date Type Department Care Team Description 11/04/2021 Hospital Encounter Department of Radiation Ivan Buchanan, Oncology in [place] [address] [facility] [[email or web address] [address] [place], [place] [id number] [phone] Social History Tobacco Use Types Packs/Day Years [...] or relatives? How often do you attend mormon or Never 2021 mormon services? Do you belong to any clubs or Yes 10/12/2021 organizations such as mormon groups, unions, fraternal or athletic groups, or [...] into 0 07/01/2019 mg suppository the rectum. [id number]-Uq-uiik-minera Take 1 tablet by 0 ls tablet [...]
--- OUTSIDE RECORDS SUMMARY | 2022-05-09 19:17 | XMS_ITS | Encounter Summary ---
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 [facility] Procedures Prior Auth Rad Tx [place] RADTN TX DEL >=1 MEV COMPLEX [address] [place] [address] Referral ID Status Reason Start Date Expiration Date Visits Requ ested Visits Authorized [id number] Closed 10/10/2021 09/20/2022 19 19 Encounter Details Date Type Department Care Team Description 10/31/2021 Hospital Encounter Department of Radiation Ivan Buchanan, Oncology in [place] [address] [facility] [address] [place], [place] [phone] Social History Tobacco Use Types Packs/Day Years [...] do you attend hindu or Never 2021 sabianism services? Do you belong to any clubs [...] place to sleep or slept in a long-term (including now)? Education Answer Date Recorded What [...] into 0 07/01/2019 mg suppository the rectum. [id number]-Gj-bysx-minera Take 1 tablet by 0 ls tablet [...]
--- OUTSIDE RECORDS SUMMARY | 2022-05-09 19:17 | XMS_ITS | Encounter Summary ---
:1975 Author Organization [facility] Address [address] [place] [address] Care Team Providers Name Role Phone Unavailable Primary Care Provider Unavailable Reason for Referral Radiation Therapy (Routine) - Authorized Specialty Diagnoses / Procedures Referred By Contact Refer red To Contact Diagnoses Malignant Neoplasm Of Breast Upper Inner Quadrant Female Left (HCC) Alejandro Buchanan M.D. [facility] Procedures Management Visit [address] [place] [address] Referral ID Status Reason Start Date Expiration Date Visits V isits Requested Authorized [id number] Authorized 09/20/2021 09/20/2022 10 10 Reason for Visit Radiation Therapy (Routine) - Authorized Specialty Diagnoses / Procedures Referred By Contact Refer red To Contact Diagnoses Malignant Neoplasm Of Breast Upper Inner Quadrant Female Left (HCC) Alejandro Buchanan M.D. [facility] Procedures Management Visit [address] [place] [address] Referral ID Status Reason Start Date Expiration Date Visits V isits Requested Authorized [id number] Authorized 09/20/2021 09/20/2022 10 10 Encounter Details Date Type Department Care Team Description 11/03/2021 - Hospital Encounter Department of Margarita Valerio Neoplasm 11/04/2021 Radiation Oncology [place] Vazquez Of Breast Upper in [place], [facility] [address] [place], [place] Female Left (HCC) [address] [facility] [address] [place], [place] [phone] [address] (Work) [phone] Social History Tobacco Use Types Packs/Day Years [...] or relatives? How often do you attend latter-day or Never 2021 jew services? Do you belong to any clubs or Yes 10/12/2021 organizations such as latter-day groups, unions, fraternal or athletic groups, or [...] place to sleep or slept in a jail (including now)? Education Answer Date Recorded What is the highest level of school Associate degree: any valdovinos, 10/11/2021 you have completed or the highest technical, or vocational p haydee degree you have received? Sex Assigned at Date Recorded Female 10/11/2021 8:54 PM CDT documented as of this encounter Last Filed Vital Signs Vital Sign Reading Time Taken Comments Blood Pressure - - Pulse - - Temperature 36.3 ??C (97.4 ??F) 11/03/2021 4:03 [...] into 0 07/01/2019 mg suppository the rectum. elltstawonrp-Ef-bwug-minera Take 1 tablet by 0 ls tablet [...] per tablet documented as of this encounter Progress Notes Margarita Valerio M.D. - 11/03/2021 4:15 PM CDT ATTESTATION FOR MANAGEMENT VISIT I saw and evaluated the patient and participated in the wilkins portions of the service as noted below. I reviewed the documentation of Ms. Sandra Dang RN and agree with the findings and plan. The patient appears well on exam. We will continue with radiation as planned and monitor weekly. We anticipate that Idania Duarte will complete radiation treatment as planned without interruptions. The course of treatment was tolerated well. The patient experienced toxicities of grade 1 radiation dermatitis and hyperpigmented skin during radiation treatment. Follow-up will be with Luis Alberto. Follow-ups with Radiation Oncology will be as needed. Margarita Valerio M.D., 11/03/2021 SUBJECTIVE REASON FOR VISIT Evaluation for side effects while receiving radiation treatment for 1. Malignant Neoplasm Of Breast Upper Inner Quadrant Female Left (HCC) SUPERVISED BY: Margarita Valerio M.D. HISTORY OF PRESENT ILLNESS Idania Duarte is a 46 y.o. female with stage IA invasive lobular carcinoma of the left breast.She is currently undergoing whole breast radiotherapy followed by a boost to the lumpectomy cavity. Treatment Course: 1xBreastL Plan ID Fractions Dose / Fraction (cGy) Dose Treated (cGy) Dose Planned (cGy) First Treatment Last Treatment Elapsed Days [id number] 10/11/2021 10/31/2021 20 [id number] 11/01/2021 11/03/2021 2 Treatment Site Summary [id number] 10/11/2021 11/03/2021 23 Course Summary 10/11/2021 11/03/2021 23 Her oncologic history is as follows: 1. March 24, 2021: Bilateral screening mammogram demonstrated 2.2 cm spiculated mass with architectural distortion at the 12 o'clock position in the left breast. ??Normal right breast mammogram. 2. March 29, 2021: Ultrasound of the left breast at the 11 o'clock position, upper inner quadrant, 5 cm from the nipple demonstrated a spiculated hypoechoic mass with increased through transmission and mild internal vascularity. ??The mass was taller than wide and measured 1.7 x 1.8 x 1.2 cm. ??BI-RADS 5. ??Ultrasound-guided left breast biopsy was performed. ??Pathology demonstrated invasive ductal carcinoma, Mil[place] grade 2. ??Angiolymphatic invasion was absent. ??Associated DCIS was present, solid, grade 2. ??Estrogen receptor positive (97%). ??Progesterone receptor positive (99%). ??HER2 by IHC negative (0). 3. March 31, 2021: MRI of the bilateral breasts demonstrated a 2.7 x 2.0 cm irregular marginated heterogeneously enhancing mass with washout kinetics in the left anterior breast at the 11 o'clock position. ??Signal void in the mass reflects the clip. ??Adjacent 6 mm satellite nodule approximately 2 mm from the superior lateral margin of the cancer. ??There was no additional suspicious mass or mass enhancement in either breast. ??No suspicious findings of the right. ??There were bilateral, left greater than right, mildly prominent axillary lymph nodes with minimally thickened cortex. ??There was a 1.6 x 0.9 cm short axis lymph node with slightly thickened cortex in the left axilla. ??BI-RADS 6. 4. April 07, 2021: ??Ultrasound of the left axilla demonstrated a mildly enlarged left axillary lymph node with slightly thickened cortex. ??The cortex measured 2.5 mm. ??The node measured 1.8 x 0.9 x 0.9 cm. ??Normal internal vascularity. ??BI-RADS 4. ??Ultrasound-guided left axillary biopsy was per formed. ??Pathology demonstrated fragments of benign lymph node. ??Negative for metastatic carcinoma. 5. April 15, 2021: ??Genetic counseling with Lizeth Álvarez MS, [facility] where the patient chose to proceed with testing via [employer]'s Breast Cancer STAT panel (9 genes) with reflex to the complete [facility] Hereditary Cancers Panel + Melanoma Panel (51 genes). 6. April 25, 2021: ??Genetic testing result was negative. 7. May 06, 2021: ??Pre-op appointment with Dr. Noemi Abernathy. ??The patient was advised to stop her control pill due to ER+/ME+ breast cancer. 8. May 10, 2021: ??Left breast lumpectomy and left axillary sentinel lymph node biopsy was performed by Dr. Catherine Le. ??Pathology of tumor #1 demonstrated invasive ductal carcinoma, Neville grade 2, measuring 2.2 cm. ??Invasive carcinoma was 0.1 cm from the lateral margin. ??Estrogen receptor positive (97%). ??Progesterone receptor positive (99%). ??HER2 by IHC negative (0). ??Pathology oftumor #2 demonstrated invasive lobular carcinoma, Milford grade 1, measuring 0.15 cm. ??Invasive carcinoma was 0.1 cm from the medial margin. Estrogen receptor negative. Progesterone receptor negative. HER2 by IHC negative (0) ??Ductal carcinoma in-situ, nuclear grade 2, cribriform and solid type was present. ??DCIS was 0.2 cm from the posterior margin. ??Surrounding breast with lobular carcinoma in-situ, classic type. ??Re-excision of medial superior, inferior, medial, and lateral margins was performed. ??Invasive carcinoma and DCIS were located greater than 10 mm from all final margins. ??Three benign left axillary sentinel lymph nodes (0/3). ??pT2 pN0(sn) 9.??May 24, 2021: ??Medical Oncology consultation with Dr. Marifer Sahu who discussed overalltreatment plan including lumpectomy followed by chemotherapy followed by radiation followed by endocrine therapy for 5-10 years. ??We will request Oncotype DX recurrence score. ??With regards to the invasive lobular carcinoma, pathology will be reviewed at Tumor Board. ??Recommended to discontinue control pills. ??The patient will discuss total abdominal hysterectomy and bilateral salpingo oophorectomy with her geriatric social work professor. 10. May 25, 2021: ??Follow-up appointment with Dr. Le who reviewed the patient's pathology results. ??No further surgical intervention was recommended. ??Oncotype DX was pending. ??They will be discussing her pathology results at tumor board conference next week. ??Referral to Radiation Oncology. 11. October 11, 2021 adjuvant left breast radiotherapy to the whole left breast planned to a dose of 4005 cGy in 15 fractions with a subsequent boost of 1000 cGy in 4 fractions to the lumpectomy cavity for a cumulative dose of 5005 cGy in 19 fractions ; anticipated completion on November 04, 2021. The patient was seen and examined today with Dr. Valerio. The patient reports that she is feeling well. She reports that she continues to use lotion 2-3 timesa day and Aquaphor at bedtime to the treatment field. She states that the area of treatment is red but not painful. She reports today that she has developed a broken blood vessel on the sclera of her eye. She reports that she is under the care of her Opthalmologist and will see them again on Sunday. She denies any vision changes or known trauma to the right eye. She denies any significant fatigue. She denies pain, cough, shortness of breath, lymphedema. PATIENT REPORTED SYMPTOM SCREEN FATIGUE (Scale: 0 = no fatigue; 10 = worst fatigue you can imagine): 2 PAIN (Scale: 0 = no pain; 10 = worst pain you can imagine): 2, back OVERALL QUALITY OF LIFE (Scale: 0 = as bad as can be; 10 = as good as can be): 9 OBJECTIVE Temp 36.3 ??C (Temporal) Wt 98.8 kg PHYSICAL EXAM General: Alert and oriented in no apparent distress. Skin: Moderate erythema to the left breast; slight hyperpigmentation to the right side of the breast. No areas of desquamation. ??Eye: Red sclera, no drainage noted. ASSESSMENT / PLAN #1??Stage IA (pT2, pN0(sn), cM0, G2, ER+, ME+, HER2-)??invasive ductal carcinoma of the upper innerquadrant of the left breast, status post margin negative lumpectomy on May 10, 2021?? #2 Stage IA (pT1a, pN0(sn), cM0, G1, ER-, ME-, HER2-)??invasive lobular carcinoma of the upper innerquadrant of the left breast, status post margin negative lumpectomy on May 10, 2021?? #3 4 cycles of docetaxel and cyclophosphamide completed on September 07, 2019?? #4??Ulcerative colitis, well controlled on Entyvio?? #5 Adjuvant left breast radiotherapy, initiated on October 11, 2021; anticipated completion on October The patient is tolerating radiation treatment well overall. She will continue to apply moisturizing lotion to the treatment field area 3-4 times a day. She was instructed on monthly self breast examinations and provided with instructions [id number]. She was also provided and instructed on radiation related moist skin reaction therapy [id number] and instructed to contact our office if the area of treatment begins to blister or peal. She was encouraged that the side effects will improve in the coming weeks. She will contact us with any questions or concerns. She is planning to see Dr. Sahu in followup. Our office will confirm this appointment. We will not schedule any formal follow-up in RadiationOncology Clinic, but the patient knows she can contact our office at any time with questions or concerns. We will continue with radiation treatment as planned. Toxicities reviewed with Dr. Valerio today. Signed by: Sandra Dang R.N. 11/03/2021 12:42 PM CDT documented in this encounter Plan of Treatment Scheduled Orders Name Type Priority Associated Diagnoses Order S chedule Management Visit Radiation Oncology Routine Malignant Neoplasm Once for 1 Of Breast Upper Occurrences starting Inner Quadrant 11/03/2021 un til Female Left (HCC) 11/03/2021 documented as of this encounter Visit Diagnoses Diagnosis Malignant Neoplasm Of Breast Upper Inner Quadrant Female Left (HCC) documented in this encounter
--- OUTSIDE RECORDS SUMMARY | 2022-05-09 19:17 | XMS_ITS | Encounter Summary ---
:1975 Author Organization [facility] Address [address] [place] [address] Care Team Providers Name Role Phone Unavailable Primary Care Provider Unavailable Reason for Referral Radiation Therapy (Routine) - Authorized Specialty Diagnoses / Procedures Referred By Contact Refer red To Contact Diagnoses Malignant Neoplasm Of Breast Upper Inner Quadrant Female Left (HCC) Alejandro Buchanan M.D. [facility] Procedures Management Visit [address] [place] [address] Referral ID Status Reason Start Date Expiration Date Visits V isits Requested Authorized [id number] Authorized 09/20/2021 09/20/2022 10 10 Reason for Visit Radiation Therapy (Routine) - Authorized Specialty Diagnoses / Procedures Referred By Contact Refer red To Contact Diagnoses Malignant Neoplasm Of Breast Upper Inner Quadrant Female Left (HCC) Alejandro Buchanan M.D. [facility] Procedures Management Visit [address] [place] [address] Referral ID Status Reason Start Date Expiration Date Visits V isits Requested Authorized [id number] Authorized 09/20/2021 09/20/2022 10 10 Encounter Details Date Type Department Care Team Description 10/25/2021 Hospital Encounter Department of Alejandro Buchanan Neoplasm Radiation Oncology [place] [facility] in [place], [address] [place], [place] Female Left (HCC) [address] [address] [place], [place] [phone] [address] (Work) [phone] Social History Tobacco Use Types Packs/Day Years [...] or relatives? How often do you attend jainism or Never 2021 nondenominational services? Do you belong to any clubs or Yes 10/12/2021 organizations such as jainism groups, unions, fraternal or athletic groups, or [...] Pressure - - Pulse - - Temperature 36.8 ??C (98.2 ??F) 10/25/2021 4:19 PM CDT Respiratory Rate - - Oxygen Saturation - - Inhaled Oxygen Concentration - - Weight 98.2 kg (216 lb 7.9 oz) 10/25/2021 4:19 PM CDT Height - - Body Mass [...] into 0 07/01/2019 mg suppository the rectum. [id number]-Xz-kwpb-minera Take 1 tablet by 0 ls tablet [...] documented as of this encounter Progress Notes Alejandro Buchanan M.D. - 10/25/2021 4:15 PM CDT SUBJECTIVE SUPERVISED BY: Dr. Buchanan REASON FOR VISIT Evaluation for side effects while receiving radiation treatment for 1. Malignant Neoplasm Of Breast Upper Inner Quadrant Female Left (HCC) HISTORY OF PRESENT ILLNESS Idania Duarte is a 46 y.o. female with stage IA invasive lobular carcinoma of the left breast. She is currently undergoing whole breast radiotherapy followed by a boost to the lumpectomy cavity. Treatment Course: 1xBreastL Plan ID Fractions Dose / Fraction (cGy) Dose Treated (cGy) Dose Planned (cGy) First Treatment Last Treatment Elapsed Days [id number] 10/11/2021 10/25/2021 14 Course Summary 10/11/2021 10/25/2021 14 Patient seen and evaluated today with Dr. Buchanan. The patient reports that she is currently feeling well. She denies any new symptoms or concerns. Sheis applying topical moisturizer multiple times a day. PATIENT REPORTED SYMPTOM SCREEN FATIGUE (Scale: 0 = no fatigue; 10 = worst fatigue you can imagine): 1 ?? PAIN (Scale: 0 = no pain; 10 = worst pain you can imagine): 1 ?? OVERALL QUALITY OF LIFE (Scale: 0 = as bad as can be; 10 = as good as can be): 8 OBJECTIVE Temp 36.8 ??C (Temporal) Wt 98.2 kg PHYSICAL EXAM General: Alert and oriented in no apparent distress. She was examined at the treatment machine with the processing rep of the therapist JOSE Anderson. Skin: Minimal erythema and slight hyperpigmentation to the right side of the breast. No areas of desquamation. ASSESSMENT / PLAN #1??Stage IA (pT2, pN0(sn), cM0, G2, ER+, IN+, HER2-)??invasive ductal carcinoma of the upper inner quadrant of the left breast, status post margin negative lumpectomy on May 10, 2021 #2 Stage IA (pT1a, pN0(sn), cM0, G1, ER-, IN-, HER2-)??invasive lobular carcinoma of the upper innerquadrant of the left breast, status post margin negative lumpectomy on May 10, 2021 #3 4 cycles of docetaxel and cyclophosphamide completed on September 07, 2019 #4??Ulcerative colitis, well controlled on Entyvio #5 Adjuvant left breast radiotherapy, initiated on October 11, 2021; anticipated completion on October The patient is tolerating radiation treatment well overall. She will continue to apply moisturizing lotion to the treatment field area. She will continue with radiation treatment as planned. Dr. Vang see patient in last management visit on November 03, 2021. No follow up with Dr. Sahu is scheduledyet. Signed by: Lubna Silva R.N. 10/25/21 4:36 PM CDT I saw and evaluated the patient and participated in the wilkins portions of the service. I reviewed the documentation of Lubna Silva R.N. and agree with the findings and plan. The patient appears well onexam. She is tolerating treatment well. I am away next week, so she will see Dr. Valerio. We will be sure that she has a follow-up visit with Dr. Sahu scheduled in the near future. We will not schedule any formal follow-up in Radiation Oncology Clinic, but the patient knows she can contact me at any time with questions or concerns. She verbalized satisfaction with this plan. She will continue with treatment as planned. Signed by: Alejandro Buchanan M.D. 10/25/2021 4:51 PM CDT [facility] [address] [place] [address] documented in this encounter Plan of Treatment Scheduled Orders Name Type Priority Associated Diagnoses Order S chedule Management Visit Radiation Oncology Routine Malignant Neoplasm Once for 1 Of Breast Upper Occurrences starting Inner Quadrant 10/25/2021 un til Female Left (HCC) 10/25/2021 documented as of this encounter Visit Diagnoses Diagnosis Malignant Neoplasm Of Breast Upper Inner Quadrant Female Left (HCC) documented in this encounter
--- OUTSIDE RECORDS SUMMARY | 2022-05-09 19:17 | XMS_ITS | Encounter Summary ---
:1975 Author Organization [facility] Address [address] [place] [address] Care Team Providers Name Role Phone Unavailable Primary Care Provider Unavailable Reason for Visit Radiation Therapy (Routine) - Closed Specialty Diagnoses / Procedures Referred By Contact Refer red To Contact Diagnoses Malignant Neoplasm Of Breast Upper Inner Quadrant Female Left (HCC) Alejandro Buchanan M.D. [facility] Procedures Prior Auth Rad Tx [place] RADTN TX DEL >=1 MEV COMPLEX [address] [place] [address] Referral ID Status Reason Start Date Expiration Date Visits Requ ested Visits Authorized [id number] Closed 10/10/2021 09/20/2022 19 19 Encounter Details Date Type Department Care Team Description 10/20/2021 Hospital Encounter Department of Radiation Ivan Buchanan, Oncology in [place] [address] [facility] [address] [place], [place] [phone] Social History Tobacco Use Types Packs/Day Years [...] or relatives? How often do you attend restorationism or Never 2021 denominational services? Do you belong to any clubs or Yes 10/12/2021 organizations such as restorationism groups, unions, fraternal or athletic groups, or [...] place to sleep or slept in a [place] (including now)? Education Answer Date Recorded What [...] into 0 07/01/2019 mg suppository the rectum. [id number]-Il-uqaf-minera Take 1 tablet by 0 ls tablet [...]
--- OUTSIDE RECORDS SUMMARY | 2022-05-09 19:17 | XMS_ITS | Encounter Summary ---
:1975 Author Organization [facility] Address [address] [place] [address] Care Team Providers Name Role Phone Unavailable Primary Care Provider Unavailable Encounter Details Date Type Department Care Team Description 11/04/2021 Documentation Department of Radiation Alejandro Buchanan, Oncology in [place] [address] [facility] [address] [place], [place], [place] [phone] (Wo rk) Social History Tobacco Use Types [...] or relatives? How often do you attend mu-ism or Never 2021 baptist services? Do you belong to any clubs or Yes 10/12/2021 organizations such as mu-ism groups, unions, fraternal or athletic groups, or [...] place to sleep or slept in a long term (including now)? Education Answer Date Recorded What is the highest level of school Associate degree: any valdovinos, 10/11/2021 you have completed or the highest technical, or vocational p [facility] degree you have received? Sex Assigned at Date Recorded Female 10/11/2021 8:54 PM CDT documented as of this encounter Miscellaneous Notes Radiation Completion Notes - Lubna Silva R.N. - 11/04/2021 11:59 PM CDT DIAGNOSIS: 1. Malignant Neoplasm Of Breast Upper Inner Quadrant Female Left (HCC) Attending Physician: Alejandro Buchanan M.D. ([id number]) Treatment Intent: Curative Concomitant Therapy: None Single Plan Treatment Course: 1xBreastL Plan ID Fractions Dose / Fraction (cGy) Dose Treated (cGy) Dose Planned (cGy) First Treatment Last Treatment Elapsed Days [id number] [phone] 10/11/2021 10/31/2021 20 [id number] 250 1000 1000 11/01/2021 11/04/2021 3 Treatment Site Summary 5005 5005 10/11/2021 11/04/2021 24 Course Summary 10/11/2021 11/04/2021 24 Radiation Modality: Photons CLINICAL SUMMARY Idania Duarte completed radiation treatment as planned without interruptions. The course of treatment was tolerated well. The patient experienced toxicities of grade 1 dermatitis and hyperpigmentation during radiation treatment. TREATMENT RESPONSE: Response to treatment will be determined by post-treatment imaging and/or laboratory work. RECOMMENDED FOLLOW UP: Primary Medical Oncologist. Dr. Sahu. Signed by: Lubna Silva R.N., 11/11/2021 2:55 PM CDT [facility] [address] [place] [address] documented in this encounter Plan of Treatment Not on filedocumented as of this encounter Visit Diagnoses Diagnosis Malignant Neoplasm Of Breast Upper Inner Quadrant Female Left (HCC) - Primary documented in this encounter
--- OUTSIDE RECORDS SUMMARY | 2022-05-09 19:17 | XMS_ITS | Encounter Summary ---
:1975 Author Organization [facility] Address [address] [place] [address] Care Team Providers Name Role Phone Unavailable Primary Care Provider Unavailable Reason for Visit Radiation Therapy (Routine) - Closed Specialty Diagnoses / Procedures Referred By Contact Refer red To Contact Diagnoses Malignant Neoplasm Of Breast Upper Inner Quadrant Female Left (HCC) Alejandro Buchanan M.D. [facility] Procedures Prior Auth Rad Tx MD RADTN TX DEL >=1 MEV COMPLEX [address] [place] [address] Referral ID Status Reason Start Date Expiration Date Visits Requ ested Visits Authorized [id number] Closed 10/10/2021 09/20/2022 19 19 Encounter Details Date Type Department Care Team Description 10/25/2021 Hospital Encounter Department of Radiation Ivan Buchanan, Oncology in [place] [address] [facility] [address] [place], [place] [phone] Social History Tobacco Use Types Packs/Day Years [...] or relatives? How often do you attend anglican or Never 2021 moravian services? Do you belong to any clubs or Yes 10/12/2021 organizations such as anglican groups, unions, fraternal or athletic groups, or [...] place to sleep or slept in a longterm (including now)? Education Answer Date Recorded What [...] into 0 07/01/2019 mg suppository the rectum. ylxrhnklhpti-Xn-byqh-minera Take 1 tablet by 0 ls tablet [...]
--- OUTSIDE RECORDS SUMMARY | 2022-05-09 19:18 | XMS_ITS | Encounter Summary ---
:1975 Author Organization [facility] Address [address] [place] [address] Care Team Providers Name Role Phone Unavailable Primary Care Provider Unavailable Reason for Visit Appointment Request (Routine) - Closed Specialty Diagnoses / Procedures Referred By Contact Refer red To Contact Radiation Oncology Diagnoses Malignant Neoplasm Of Breast Female Left (HCC) Catherine Le M.D. [address] [place] [address] Referral ID Status Reason Start Date Expiration Date Visits Requ ested Visits Authorized [id number] Closed 05/26/2021 05/26/2022 1 1 Encounter Details Date Type Department Care Team Description 06/01/2021 Hospital Encounter Department of Alejandro Buchanan Neoplasm Radiation Oncology [place] Of Breast Upper in [place], [address] [place] [address] Female Left (HCC) [address] [facility] [address] (Primary Dx) [place], [place] [phone] (Work) [phone] Social History Tobacco Use Types Packs/Day Years [...] or relatives? How often do you attend islam or Never 2021 adventism services? Do you belong to any clubs or Yes 10/12/2021 organizations such as islam groups, unions, fraKeukey or athletic groups, or school groups? How [...] place to sleep or slept in a assisted (including now)? Sex Assigned at Date Recorded Female 10/11/2021 8:54 PM CDT documented as of this encounter Last Filed Vital Signs Vital Sign Reading Time Taken Comments Blood Pressure 137/80 06/01/2021 3:03 PM [employer] Pulse 89 06/01/2021 3:03 PM [employer] Temperature 36.6 ??C (97.8 ??F) 06/01/2021 3:03 PM [employer] Respiratory Rate - - Oxygen Saturation - - Inhaled Oxygen Concentration - - Weight 92.9 kg (204 lb 12.9 oz) 06/01/2021 3:03 PM [employer] Height - - Body Mass Index - - documented in this encounter Medications at Time of Discharge Medication Sig Dispensed Refills Start Date End Date budesonide (ENTOCORT EC) 3 Take 9 mg [...] mg by 0 mg SL tablet mouth. mesalamine (CANASA) 1,000 Insert 1,000 mg into 0 07/01/2019 mg suppository the rectum. fjiidhauaiap-Aj-gypb-minera Take 1 tablet by 0 ls tablet [...] per tablet documented as of this encounter Consult Notes Alejandro Buchanan M.D. - 06/01/2021 3:15 PM CST SUBJECTIVE REQUESTING PROVIDER Catherine Le M.D. PRIMARY PROVIDER Noemi Abernathy M.D. REASON FOR CONSULT 1. Malignant Neoplasm Of Breast Upper Inner Quadrant Female Left (HCC) HISTORY OF PRESENT ILLNESS Idania Duarte is a 46 y.o. female with stage IA (pT2(2), pN0(sn), cM0, G2, ER+, SC+, HER2-) invasive ductal carcinoma of the left breast. I am asked by Dr. Le to evaluate the patient for radiotherapy. Her oncologic history is as follows: 1. March 24, 2021: Bilateral screening mammogram demonstrated 2.2 cm spiculated mass with architectural distortion at the 12 o'clock position in the left breast. Normal right breast mammogram. 2. March 29, 2021: Ultrasound of the left breast at the 11 o'clock position, upper inner quadrant, 5 cm from the nipple demonstrated a spiculated hypoechoic mass with increased through transmission and mild internal vascularity. The mass was taller than wide and measured 1.7 x 1.8 x 1.2 cm. BI-RADS 5. Ultrasound- guided left breast biopsy was performed. Pathology demonstrated invasive ductal carcinoma, Neville grade 2. Angiolymphatic invasion was absent. Associated DCIS was present, solid, grade 2. Estrogen receptor positive (97%). Progesterone receptor positive (99%). HER2 by IHC negative (0). 3. March 31, 2021: MRI of the bilateral breasts demonstrated a 2.7 x 2.0 cm irregular marginated heterogeneously enhancing mass with washout kinetics in the left anterior breast at the 11 o'clock position. Signal void in the mass reflects the clip. Adjacent 6 mm satellite nodule approximately 2 mm from the superior lateral margin of the cancer. There was no additional suspicious mass or mass enhancement in either breast. No suspicious findings of the right. There were bilateral, left greater than right, mildly prominent axillary lymph nodes with minimally thickened cortex. There was a 1.6 x 0.9 cmshort axis lymph node with slightly thickened cortex in the left axilla. BI-RADS 6. 4. April 07, 2021: Ultrasound of the left axilla demonstrated a mildly enlarged left axillary lymph node with slightly thickened cortex. The cortex measured 2.5 mm. The node measured 1.8 x 0.9 x 0.9 cm. Normal internal vascularity. BI-RADS 4. Ultrasound-guided left axillary biopsy was performed. Pathology demonstrated fragments of benign lymph node. Negative for metastatic carcinoma. 5. April 15, 2021: Genetic counseling with Lizeth Álvarez MS, [facility] [place] the patient chose to proceed with testing via [employer]'s Breast Cancer STAT panel (9 genes) with reflex to the complete the Common Hereditary Cancers Panel + Melanoma Panel (51 genes). 6. April 25, 2021: Genetic testing result was negative. 7. May 06, 2021: Pre-op appointment with Dr. Noemi Abernathy. The patient was advised to stop her control pill due to ER+/SC+ breast cancer. 8. May 10, 2021: Left breast lumpectomy and left axillary sentinel lymph node biopsy was performed by Dr. Catherine Le. Pathology of tumor #1 demonstrated invasive ductal carcinoma, Neville grade 2, measuring 2.2 cm. Invasive carcinoma was 0.1 cm from the lateral margin. Estrogen receptor positive (97%). Progesterone receptor positive (99%). HER2 by IHC negative (0). Pathology of tumor #2 demonstrated invasive lobular carcinoma, Neville grade 1, measuring 0.15 cm. Invasive carcinoma was 0.1 cm from the medial margin. Estrogen receptor negative. Progesterone receptor negative. HER2 by IHC negative (0) Ductal carcinoma in-situ, nuclear grade 2, cribriform and solid type was present. DCIS was 0.2 cm from the posterior margin. Surrounding breast with lobular carcinoma in-situ, classic type.Re-excision of medial superior, inferior, medial, and lateral margins was performed. Invasive carcinoma and DCIS were located greater than 10 mm from all final margins. Three benign left axillary sentinel lymph nodes (0/3). pT2 pN0(sn) 9. May 24, 2021: Medical Oncology consultation with Dr. Marifer Sahu who discussed overall treatment plan including lumpectomy followed by chemotherapy followed by radiation followed by endocrine therapy for 5-10 years. We will request Oncotype DX recurrence score. With regards to the invasive lobular carcinoma, pathology will be reviewed at Tumor Board. Recommended to discontinue control pills. The patient will discuss total abdominal hysterectomy and bilateral salpingo oophorectomy with her creative coordinator. 10. May 25, 2021: Follow-up appointment with Dr. Le who reviewed the patient's pathology results. No further surgical intervention was recommended. Oncotype DX was pending. They will be discussing her pathology results at tumor board conference next week. Referral to Radiation Oncology. INTERVAL HISTORY The patient reports that she is currently feeling well. She had no antecedent breast symptoms prior to her mammography. She has no current breast pain or discomfort. She does have occasional zingers. She has had no complications following her surgery. She has resumed full-time work. She denies a history of prior radiation therapy or connective tissue disorders. She does have ulcerative colitis that is well controlled on Entyvio. Her ECOG performance status is 0. REVIEW OF SYSTEMS Review of systems was negative except as documented above. PATIENT REPORTED SYMPTOM SCREEN FATIGUE (Scale: 0 = no fatigue; 10 = worst fatigue you can imagine): 0 PAIN (Scale: 0 = no pain; 10 = worst pain you can imagine): 0 OVERALL QUALITY OF LIFE (Scale: 0 = as bad as can be; 10 = as good as can be): 10 PAST MEDICAL HISTORY 1. Ulcerative colitis, controlled on Entyvio 2. Anxiety 3. Melanoma, abdomen, 2008 (severely atypical melanocytic proliferation) 4. Basal cell carcinoma, left breast, right lower leg, left upper thigh 5. Squamous cell carcinoma, right upper arm 6. Hypertension 7. Leg edema 8. Left breast cancer PAST SURGICAL HISTORY 1. Laparoscopic cholecystectomy 2. Tonsillectomy 3. Removal of cyst, left wrist 4. Left breast lumpectomy and left axillary sentinel lymph node biopsy, 2020 SOCIAL HISTORY She lives in [place], [place]. She is . She has no children. Her significant other is Delmer. 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 She is a former smoker of 5 cigarettes per day for 10 years, quit in 2013. Alcohol use twice per week. FAMILY HISTORY Maternal grandfather had prostate cancer. Brother had a basal cell carcinoma. OBJECTIVE BP 137/80 (BP Location: Right arm, Patient Position: Sitting, Cuff Size: Small) Pulse 89 Temp 36.6 ??C (Temporal) Wt 92.9 kg PHYSICAL EXAM General: Patient is awake, alert, and oriented to person, place, and time. No apparent distress. Sheis here today with her significant other, Delmer. Exam was chaperoned by Lubna Silva R.N.. ENT: Pupils equal, round, and reactive to light. Sclera anicteric. Oral cavity inspection reveals moist mucous membranes and no visible lesions. Neck: Supple. Lymph: No palpable cervical, supraclavicular, infraclavicular, or axillary adenopathy. Spine: There is no tenderness to palpation of the spine. Lungs: Clear to auscultation bilaterally. Heart: Regular rate and rhythm. Normal S1 and S2. No murmurs. Abdomen: Soft, non-tender, non-distended. Normal active bowel sounds are present. Extremities: No upper extremity edema. Her wrist circumference is equal and normal bilaterally. She does have mild lower extremity edema to the mid shins bilaterally. Breasts: Examined in the sitting and supine positions. The right breast has an everted nipple with no palpable masses, no overlying skin changes, and no expressible nipple discharge. The left breast has an everted nipple. There is a well-healing surgical incision in the upper medial aspect of the nipple-areolar complex border. There is a mild tissue defect just laterally to this as well as a mild seroma. Palpable masses. DIAGNOSTICS I reviewed the patient's imaging and pathology reports. ASSESSMENT / PLAN 1. Stage IA (pT2, pN0(sn), cM0, G2, ER+, SC+, HER2-) invasive ductal carcinoma of the upper inner quadrant of the left breast with additional stage IA (pT1a, pN0(sn), cM0, G1, ER-, SC-, HER2-) invasivelobular carcinoma of the upper inner quadrant of the left breast, status post margin negative lumpectomy on May 10, 2021 2. Ulcerative colitis, well controlled on Entyvio I had a detailed discussion with the patient and her significant other regarding the risks, benefits, and alternatives of radiotherapy in this setting. I reviewed the NCCN guidelines in formulating my recommendations. I went over these with the patient. We discussed standard hypofractionated whole breast radiotherapy to a dose of 4005 cGy in 15 fractions with or without a boost of 1000 cGy in 4 fractions to the lumpectomy cavity. We also discussed the possibility of treating the whole breast to a dose of 2600 cGy in 5 fractions (as per the FAST-Forward trial, Bisit et al., Lancet 2020) with possible boost of 1000 cGy in 4 fractions to the lumpectomy cavity. We also discussed accelerated partial breast irradiation to the lumpectomy cavity alone to a dose of 3000 cGy in 5 fractions. Because of her young age and the mixed histology that is present, I do not recommend accelerated partial breast irradiation or the FAST regimen. I recommend treatment to the left whole breast to a dose of 4005 cGy in 15 fractions with a boost of 1000 cGy in 4 fractions to the lumpectomy cavity. I discussed the logistics as well as the acute and chronic side effects of treatment in detail. The acute side effects are common and include breast erythema, swelling, discomfort, and possible peelingof the skin, and fatigue. Long-term side effects could include skin changes and texture changes of the breast, possible breast asymmetry, a very small risk of radiation pneumonitis (1%), pulmonary scarring (typically of no clinical significance), increased risk of rib fracture with significant trauma,lymphedema (12% risk), accelerated coronary artery disease (minimized with a breath hold technique),and a very small risk of secondary malignancy (less than 0.2%). We discussed the fact that patients with ulcerative colitis can have increased sensitivity to radiation. However, this is only a concern when radiating the bowel. After this discussion, I provided the patient with a written summary of my recommendations. Her questions were answered to her verbalized satisfaction. The patient verbally stated that she would like to proceed with treatment. She has an Oncotype DX that is pending. We will also discuss her case with a mixed histologies including the triple negativity of the lobular carcinoma at the multidisciplinaryTumor Board tomorrow. We will wait the results of both prior to proceeding with treatment. My thanks to Luis Alberto Brumfield, and Josemanuel for the opportunity to participate in this patient's care. EDUCATION Ready to learn, no apparent learning barriers were identified; learning preferences include listening. Explained diagnosis and treatment plan; patient expressed understanding of the content. CONSENT Discussed the risks, benefits, alternatives, and the necessity of other members of the healthcare team participating in the procedure. All questions answered and consent given. I have spent 60 minutes with this patient today with 55 minutes spent in counseling the patient. Signed by: Alejandro Buchanan M.D. 06/01/2021 6:10 PM AUT[employer] Radiation Oncology [facility] [address] [place] [address] [employer] documented in this encounter Miscellaneous Notes Addendum Note - Leonarda Renae C.N.A. - 06/01/2021 3:15 PM [employer] Encounter addended by: Leonarda Renae C.NNola on: 06/02/2021 7:00 AM Actions taken: Letter saved [employer]TER documented in this encounter Plan of Treatment Not on filedocumented as of this encounter Visit Diagnoses Diagnosis Malignant Neoplasm Of Breast Upper Inner Quadrant Female Left (HCC) - Primary documented in this encounter
--- OUTSIDE RECORDS SUMMARY | 2022-05-09 19:18 | XMS_ITS | Encounter Summary ---
:1975 Author Organization [facility] Address [address] [place] [address] Care Team Providers Name Role Phone Unavailable Primary Care Provider Unavailable Reason for Visit Radiation Therapy (Routine) - Closed Specialty Diagnoses / Procedures Referred By Contact Refer red To Contact Diagnoses Malignant Neoplasm Of Breast Upper Inner Quadrant Female Left (HCC) Alejandro Buchanan M.D. [facility] Procedures Prior Auth Rad Tx [place] RADTN TX DEL >=1 MEV COMPLEX [address] [place] [address] Referral ID Status Reason Start Date Expiration Date Visits Requ ested Visits Authorized [id number] Closed 10/10/2021 09/20/2022 19 19 Encounter Details Date Type Department Care Team Description 10/18/2021 Hospital Encounter Department of Radiation Ivan Buchanan, Oncology in [place] [address] [facility] [address] [place], [place] [id number] [phone] Social History Tobacco Use Types Packs/Day Years [...] or relatives? How often do you attend christianity or Never 2021 taoist services? Do you belong to any clubs or Yes 10/12/2021 organizations such as christianity groups, unions, fraternal or athletic groups, or [...] into 0 07/01/2019 mg suppository the rectum. yvhnutujczfm-En-znvi-minera Take 1 tablet by 0 ls tablet [...]
--- OUTSIDE RECORDS SUMMARY | 2022-05-09 19:18 | XMS_ITS | Encounter Summary ---
:1975 Author Organization [facility] Address [address] [place] [address] Care Team Providers Name Role Phone Unavailable Primary Care Provider Unavailable Reason for Visit Radiation Therapy (Routine) - Closed Specialty Diagnoses / Procedures Referred By Contact Refer red To Contact Diagnoses Malignant Neoplasm Of Breast Upper Inner Quadrant Female Left (HCC) Alejandro Buchanan M.D. [facility] Procedures Prior Auth Rad Tx [place] RADTN TX DEL >=1 MEV COMPLEX [address] [place] [address] Referral ID Status Reason Start Date Expiration Date Visits Requ ested Visits Authorized [id number] Closed 10/10/2021 09/20/2022 19 19 Encounter Details Date Type Department Care Team Description 10/12/2021 Hospital Encounter Department of Radiation Ivan Buchanan, Oncology in [place] [address] [facility] [address] [place] [id number] [phone] Social History Tobacco Use Types Packs/Day Years [...] or relatives? How often do you attend sabianism or Never 2021 mormonism services? Do you belong to any clubs or Yes 10/12/2021 organizations such as sabianism groups, unions, fraternal or athletic groups, or [...] into 0 07/01/2019 mg suppository the rectum. ncoupwiyctvr-Zl-kiuk-minera Take 1 tablet by 0 ls tablet [...]
--- OUTSIDE RECORDS SUMMARY | 2022-05-09 19:18 | XMS_ITS | Encounter Summary ---
:1975 Author Organization [facility] Address [address] [place] [address] Care Team Providers Name Role Phone Unavailable Primary Care Provider Unavailable Reason for Referral Outpatient (Routine) - Authorized Specialty Diagnoses / Procedures Referred By Contact Refer red To Contact Radiation Oncology Alejandro Buchanan M .D. [facility] [address] [place] [address] Referral ID Status Reason Start Date Expiration Date Visits V isits Requested Authorized [id number] Authorized 09/20/2021 09/20/2022 10 10 Specialty Diagnoses / Procedures Referred By Contact Refer red To Contact Cece Bolton P.A.-C ., M.S. [facility] [address] [place], [place] [address] Referral ID Status Reason Start Date Expiration Date Visits Requ ested Visits Authorized Radiation Therapy (Routine) - Authorized Specialty Diagnoses / Procedures Referred By Contact Refer red To Contact Diagnoses Malignant Neoplasm Of Breast Upper Inner Quadrant Female Left (HCC) Alejandro Buchanan M.D. [facility] Procedures Management Visit [address] [place] [address] Referral ID Status Reason Start Date Expiration Date Visits V isits Requested Authorized [id number] Authorized 09/20/2021 09/20/2022 10 10 Radiation Therapy (Routine) - Closed Specialty Diagnoses / Procedures Referred By Contact Refer red To Contact Diagnoses Malignant Neoplasm Of Breast Upper Inner Quadrant Female Left (HCC) Alejandro Buchanan M.D. [facility] Procedures Prior Auth Rad Tx [place] RADTN [place] DEL >=1 MEV COMPLEX [address] [place], [place] [address] Referral ID Status Reason Start Date Expiration Date Visits Requ ested Visits Authorized [id number] Closed 10/10/2021 09/20/2022 19 19 Radiation Therapy (Routine) - Closed Specialty Diagnoses / Procedures Referred By Contact Refer red To Contact Diagnoses Malignant Neoplasm Of Breast Upper Inner [facility] Female Left (HCC) Alejandro Buchanan M.D. [facility] Procedures Initial Rad Onc Treatment Planning CT Simulation [address] [place], [place] [address] Referral ID Status Reason Start Date Expiration Date Visits Requ ested Visits Authorized [id number] Closed 09/20/2021 09/20/2022 1 1 Outpatient (Routine) - Closed Specialty Diagnoses / Procedures Referred By Contact Refer red To Contact Radiation Oncology Alejandro Buchanan M .D. [facility] [address] [place] [address] Referral ID Status Reason Start Date Expiration Date Visits Requ ested Visits Authorized [id number] Closed 09/20/2021 09/20/2022 1 1 Encounter Details Date Type Department Care Team Description 09/20/2021 Orders Only Department of Radiation Cece Bolton Mal ignant Neoplasm Of Oncology in [place], P.A.-Deepti., M.S. Breast Upper Inner [place] [address] [facility] Quadrant Female Left [address] [place], [place] (HCC) (Primary Dx) [place] [phone] [phone] Social History Tobacco Use Types Packs/Day Years [...] or relatives? How often do you attend mandaen or Never 2021 baptist services? Do you belong to any clubs or Yes 10/12/2021 organizations such as mandaen groups, unions, fraternal or athletic groups, or [...] place to sleep or slept in a skilled nursing (including now)? Sex Assigned at Date Recorded Female 10/11/2021 8:54 PM CDT documented as of this encounter Plan of Treatment Scheduled Orders Name Type Priority Associated Order Schedule Diagnoses Prior Auth Rad Tx Radiation Oncology Routine Malignant Neoplas m Ordered: 09/20/2021 Of Breast Upper Inner Quadrant Female Left (HCC) Management Visit Radiation Oncology Routine Malignant Neoplasm 10 Occurrences Of Breast Upper starting Inner Quadrant until 025 Female Left (HCC) Scheduled Referrals Name Type Priority Associated Order Schedule Diagnoses Radiation Oncology Outpatient Referral Routine Ex pected: 10/03/2021 office visit (Approximate), (clinic) Expires: 2022 Radiation Oncology Outpatient Referral Routine Malignant Neopl asm Expected: 09/20/2021 - Nurse education Of Breast Upper (Approx imate), visit (clinic) Inner Quadrant Expires: Female Left (HCC) Radiation Oncology Outpatient Referral Routine 10 Occurrences nurse visit starting 2021 (clinic) until 3 documented as of this encounter Results Initial Rad Onc Treatment Planning CT Simulation (10/07/2021 9:28 AM CDT) Specimen (Source) Anatomical Location Collection Method / Collectio n Time Received Time / Laterality Volume Narrative HENOK PUENTE - 10/07/2021 9:28 AM CDT Paty Perez, RTT ? 10/07/2021 ??9:28 AM Initial Rad Onc Treatment Planning CT Si mulation Date/Time: 10/07/2021 9:28 AM Performed by: Alejanrdo Buchanan M.D. Authorized by: Alejandro Buchanan M.D. Alejandro Buchanan M.D. RADIATION ONCOLOGY ORDERABLE S Performing Organization Address City/State/ZIP Code Phon e Number [facility] na documented in this encounter Visit Diagnoses Diagnosis Malignant Neoplasm Of Breast Upper Inner Quadrant Female Left (HCC) - Primary Malignant Neoplasm Of Breast Upper Inner Quadrant Female Left (HCC) documented in this encounter
--- OUTSIDE RECORDS SUMMARY | 2022-05-09 19:18 | XMS_ITS | Encounter Summary ---
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 [facility] Procedures Management Visit [address] [place] [address] Referral ID Status Reason Start Date Expiration Date Visits V isits Requested Authorized [id number] Authorized 09/20/2021 09/20/2022 10 10 Reason for Visit Radiation Therapy (Routine) - Authorized Specialty Diagnoses / Procedures Referred By Contact Refer red To Contact Diagnoses Malignant Neoplasm Of Breast Upper Inner Quadrant Female Left (HCC) Alejandro Buchanan M.D. [facility] Procedures Management Visit [address] [place] [address] Referral ID Status Reason Start Date Expiration Date Visits V isits Requested Authorized [id number] Authorized 09/20/2021 09/20/2022 10 10 Encounter Details Date Type Department Care Team Description 10/18/2021 Hospital Encounter Department of Alejandro Buchanan Neoplasm Radiation Oncology Deena [facility] in [place], [address] [place], [place] Female Left (HCC) [address] [address] (Primary Dx) [place], [place] [phone] [address] (Work) [phone] Social History Tobacco Use Types Packs/Day Years [...] or relatives? How often do you attend hoahaoism or Never 2021 jehovah's witness services? Do you belong to any clubs or Yes 10/12/2021 organizations such as hoahaoism groups, unions, fraternal or athletic groups, or [...] into 0 07/01/2019 mg suppository the rectum. [id number]-Ui-gpjh-minera Take 1 tablet by 0 ls tablet [...] encounter Progress Notes Alejandro Buchanan M.D. - 10/18/2021 3:30 PM CDT SUBJECTIVE REASON FOR VISIT Evaluation for side effects while receiving radiation treatment for 1. Malignant Neoplasm Of Breast Upper Inner Quadrant Female Left (HCC) HISTORY OF PRESENT ILLNESS Idania Duaret is a 46 y.o. female with stage IA invasive lobular carcinoma of the left breast. She is currently undergoing whole breast radiotherapy followed by a boost to the lumpectomy cavity. Treatment Course: 1xBreastL Plan ID Fractions Dose / Fraction (cGy) Dose Treated (cGy) Dose Planned (cGy) First Treatment Last Treatment Elapsed Days [id number] 10/11/2021 10/18/2021 7 Course Summary 10/11/2021 10/18/2021 7 The patient reports that she is currently feeling well. She denies any breast pain or discomfort. She has noted some breast redness. She is applying topical moisturizer multiple times a day. OBJECTIVE There were no vitals taken for this visit. PHYSICAL EXAM General: Alert and oriented in no apparent distress. She was examined at the treatment machine with the general cargo clerk of the therapist JOSE Anderson. Skin: Very faint erythema throughout the breast. No areas of desquamation. ASSESSMENT [...] radiation treatment well overall. She will continue with radiation treatment as planned. Signed by: Alejandro Buchanan M.D. 10/18/21 5:00 PM CDT [facility] [address] [place] [address] documented in this encounter Plan of Treatment Scheduled Orders Name Type Priority Associated Diagnoses Order S chedule Management Visit Radiation Oncology Routine Malignant Neoplasm Once for 1 Of Breast Upper Occurrences starting Inner Quadrant 10/18/2021 un til Female Left (HCC) 10/18/2021 documented as of this encounter Visit Diagnoses Diagnosis Malignant Neoplasm Of Breast Upper Inner Quadrant Female Left (HCC) - Primary documented in this encounter
--- OUTSIDE RECORDS SUMMARY | 2022-05-09 19:18 | XMS_ITS | Encounter Summary ---
:[address] [facility] Address [address] [place] [address] Care Team Providers Name Role Phone Unavailable Primary Care Provider Unavailable Reason for Visit Reason Comments COVID Inquiry Encounter Details Date Type Department Care Team Description 12/15/2019 Clinical Communication Division [facility] [address] [place] [address] [place] [address] [place], [place] [phone] (Work) [phone] Social History Tobacco Use Types Packs/Day Years [...] or relatives? How often do you attend amish or Never 2021 mormon services? Do you belong to any clubs or Yes 10/12/2021 organizations such as amish groups, unions, fraternal or athletic groups, or [...] or slept in a long-term (including now)? Sex Assigned at Date Recorded Female 10/11/2021 8:54 PM CDT documented as of this encounter Plan of Treatment Not on filedocumented as of this encounter Visit Diagnoses Not on filedocumented in this encounter
--- OUTSIDE RECORDS SUMMARY | 2022-05-09 19:18 | XMS_ITS | Encounter Summary ---
:1975 Author Organization [facility] Address [address] [place] [address] Care Team Providers Name Role Phone Unavailable Primary Care Provider Unavailable Reason for Referral Radiation Therapy (Routine) - Authorized Specialty Diagnoses / Procedures Referred By Contact Refer red To Contact Diagnoses Malignant Neoplasm Of Breast Upper Inner Quadrant Female Left (HCC) Alejandro Buchanan M.D. [facility] Procedures Management Visit [address] [place] [address] Referral ID Status Reason Start Date Expiration Date Visits V isits Requested Authorized [id number] Authorized 09/20/2021 09/20/2022 10 10 Reason for Visit Radiation Therapy (Routine) - Authorized Specialty Diagnoses / Procedures Referred By Contact Refer red To Contact Diagnoses Malignant Neoplasm Of Breast Upper Inner Quadrant Female Left (HCC) Alejandro Buchanan M.D. [facility] Procedures Management Visit [address] [place] [address] Referral ID Status Reason Start Date Expiration Date Visits V isits Requested Authorized [id number] Authorized 09/20/2021 09/20/2022 10 10 Encounter Details Date Type Department Care Team Description 10/11/2021 Hospital Encounter Department of Margarita Valerio Neoplasm Radiation Oncology Deena Vazquez Of Breast Upper in [place], [facility]note 2] [address] [place], [place] Female Left (HCC) [address] [address] [place], [place] [phone] [address] (Work) [phone] Social History Tobacco Use Types Packs/Day Years [...] or relatives? How often do you attend rastafari or Never 2021 baptism services? Do you belong to any clubs or Yes 10/12/2021 organizations such as rastafari groups, unions, fraternal or athletic groups, or [...] place to sleep or slept in a care home (including now)? Education Answer Date Recorded What [...] into 0 07/01/2019 mg suppository the rectum. ladguxeinvyk-Oi-auxp-minera Take 1 tablet by 0 ls tablet [...] encounter Progress Notes Margarita Valerio M.D. - 10/11/2021 3:30 PM CDT Diagnosis: Left breast cancer Radiation Treatment Progress Summary Treatment Course: 1xBreastL Plan ID Fractions Dose / Fraction (cGy) Dose Treated (cGy) Dose Planned (cGy) First Treatment Last Treatment Elapsed Days [id number] 10/11/2021 10/11/2021 0 F16 Lt Breast boost 250 1000 Course Summary 5005 10/11/2021 10/11/2021 0 SUBJECTIVE Idania Duarte a 46 y.o. reports that she feels well with no complaints after her first treatment. She did well with her breath hold. She denies any lumps, fevers/chills, cough or other concerns at this time. OBJECTIVE There were no vitals taken for this visit. 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 We discussed skin care with lotion twice per day and non-aluminum containing deodorant. She will meet with our nurse later this week. We will continue as planned. Signed by: Margarita Valerio M.D. 10/11/2021 4:33 PM CDT documented in this encounter Plan of Treatment Scheduled Orders Name Type Priority Associated Diagnoses Order S chedule Management Visit Radiation Oncology Routine Malignant Neoplasm Once for 1 Of Breast Upper Occurrences starting Inner Quadrant 10/11/2021 un til Female Left (HCC) 10/11/2021 documented as of this encounter Visit Diagnoses Diagnosis Malignant Neoplasm Of Breast Upper Inner Quadrant Female Left (HCC) documented in this encounter
--- OUTSIDE RECORDS SUMMARY | 2022-05-09 19:18 | XMS_ITS | Encounter Summary ---
:1975 Author Organization [facility] Address [address] [place] [address] Care Team Providers Name Role Phone Unavailable Primary Care Provider Unavailable Reason for Visit Radiation Therapy (Routine) - Closed Specialty Diagnoses / Procedures Referred By Contact Refer red To Contact Diagnoses Malignant Neoplasm Of Breast Upper Inner Quadrant Female Left (HCC) Alejandro Buchanan M.D. [facility] Procedures Prior Auth Rad Tx [place] RADTN TX DEL >=1 MEV COMPLEX [address] [place] [address] Referral ID Status Reason Start Date Expiration Date Visits Requ ested Visits Authorized [id number] Closed 10/10/2021 09/20/2022 19 19 Encounter Details Date Type Department Care Team Description 10/14/2021 Hospital Encounter Department of Radiation Ivan Buchanan, Oncology in [place] [address] [facility] [address] [place], [place] [phone] Social History Tobacco Use Types Packs/Day Years [...] or relatives? How often do you attend episcopal or Never 2021 confucianism services? Do you belong to any clubs or Yes 10/12/2021 organizations such as episcopal groups, unions, fraternal or athletic groups, or [...] place to sleep or slept in a alf (including now)? Education Answer Date Recorded What [...] into 0 07/01/2019 mg suppository the rectum. irfdcybvqrtm-Xa-bzlz-minera Take 1 tablet by 0 ls tablet [...]
--- OUTSIDE RECORDS SUMMARY | 2022-05-09 19:18 | XMS_ITS | Encounter Summary ---
:1975 Author Organization [facility] Address [address] [place] [address] Care Team Providers Name Role Phone Unavailable Primary Care Provider Unavailable Reason for Visit Radiation Therapy (Routine) - Closed Specialty Diagnoses / Procedures Referred By Contact Refer red To Contact Diagnoses Malignant Neoplasm Of Breast Upper Inner Quadrant Female Left (HCC) Alejandro Buchanan M.D. [facility] Procedures Prior Auth Rad Tx [place] RADTN TX DEL >=1 MEV COMPLEX [address] [place] [address] Referral ID Status Reason Start Date Expiration Date Visits Requ ested Visits Authorized [id number] Closed 10/10/2021 09/20/2022 19 19 Encounter Details Date Type Department Care Team Description 10/19/2021 Hospital Encounter Department of Radiation Ivan Buchanan, Oncology in [place] [address] [email or web address] [address] [place], [place] [phone] Social History Tobacco Use Types Packs/Day Years [...] do you attend hoahaoism or Never 2021 pentecostalism services? Do you belong to any clubs [...] place to sleep or slept in a fpc (including now)? Education Answer Date Recorded What [...] into 0 07/01/2019 mg suppository the rectum. xjxljyarcuqn-Lj-wsuz-minera Take 1 tablet by 0 ls tablet [...]
--- OUTSIDE RECORDS SUMMARY | 2022-05-09 19:18 | XMS_ITS | Encounter Summary ---
:1975 Author Organization [facility] Address [address] [place] [address] Care Team Providers Name Role Phone Unavailable Primary Care Provider Unavailable Reason for Visit Radiation Therapy (Routine) - Closed Specialty Diagnoses / Procedures Referred By Contact Refer red To Contact Diagnoses Malignant Neoplasm Of Breast Upper Inner Quadrant Female Left (HCC) Alejandro Buchanan M.D. [facility] Procedures Prior Auth Rad Tx [place] RADTN TX DEL >=1 MEV COMPLEX [address] [place] [address] Referral ID Status Reason Start Date Expiration Date Visits Requ ested Visits Authorized [id number] Closed 10/10/2021 09/20/2022 19 19 Encounter Details Date Type Department Care Team Description 10/17/2021 Hospital Encounter Department of Radiation Ivan Buchanan, Oncology in [place] [address] [facility] [address] [place], [place] [phone] Social History Tobacco Use Types Packs/Day Years [...] or relatives? How often do you attend anabaptism or Never 2021 sabianist services? Do you belong to any clubs or Yes 10/12/2021 organizations such as anabaptism groups, unions, fraternal or athletic groups, or [...] into 0 07/01/2019 mg suppository the rectum. qrxgrchlajmc-Nt-kotb-minera Take 1 tablet by 0 ls tablet [...]
--- OUTSIDE RECORDS SUMMARY | 2022-05-09 19:18 | XMS_ITS | Encounter Summary ---
:1975 Author Organization [facility] Address [address] [place] [address] Care Team Providers Name Role Phone Unavailable Primary Care Provider Unavailable Reason for Visit Radiation Therapy (Routine) - Closed Specialty Diagnoses / Procedures Referred By Contact Refer red To Contact Diagnoses Malignant Neoplasm Of Breast Upper Inner Quadrant Female Left (HCC) Alejandro Buchanan M.D. [facility] Procedures Prior Auth Rad Tx [place] RADTN [place] DEL >=1 MEV COMPLEX [address] [place] [address] Referral ID Status Reason Start Date Expiration Date Visits Requ ested Visits Authorized [id number] Closed 10/10/2021 09/20/2022 Encounter Details Date Type Department Care Team Description 10/11/2021 Hospital Encounter Department of Radiation Ivan Buchanan, Oncology in [place] [address] [facility] [address] [place], [place] [phone] Social History Tobacco Use Types Packs/Day Years [...] or relatives? How often do you attend roman catholic or Never 2021 denominational services? Do you belong to any clubs or Yes 10/12/2021 organizations such as roman catholic groups, unions, fraternal or athletic groups, or [...] place to sleep or slept in a correction (including now)? Education Answer Date Recorded What [...] into 0 07/01/2019 mg suppository the rectum. kmozbpflqrwl-Mr-owep-minera Take 1 tablet by 0 ls tablet [...]
--- OUTSIDE RECORDS SUMMARY | 2022-05-09 19:18 | XMS_ITS | Encounter Summary ---
:1975 Author Organization [facility] Address [address] [place] [address] Care Team Providers Name Role Phone Unavailable Primary Care Provider Unavailable Reason for Referral Outpatient (Routine) - Closed Specialty Diagnoses / Procedures Referred By Contact Refer red To Contact Radiation Oncology Alejandro Buchanan M .D. [facility] [address] [place] [phone] Referral ID Status Reason Start Date Expiration Date Visits Requ ested Visits Authorized [id number] Closed 09/20/2021 09/20/2022 1 1 Reason for Visit Outpatient (Routine) - Closed Specialty Diagnoses / Procedures Referred By Contact Refer tevin To Contact Radiation Oncology Alejandro Buchanan M .D. [facility] Region [address] [place] [phone] Referral ID Status Reason Start Date Expiration Date Visits Requ ested Visits Authorized [id number] Closed 09/20/2021 09/20/2022 1 1 Encounter Details Date Type Department Care Team Description 10/07/2021 Hospital Encounter Department of Alejandro Buchanan Neoplasm Radiation Oncology Deena King Of Breast Upper in [address] Female Left (HCC) [address] [facility] [address] (Primary Dx) [place], [place] [phone] [address] (Work) [phone] Social History Tobacco Use Types Packs/Day Years [...] or relatives? How often do you attend yarsanism or Never 2021 scientologist services? Do you belong to any clubs or Yes 10/12/2021 organizations such as yarsanism groups, unions, fraEdyn or athletic groups, or school groups? How often do you attend meetings of the More than 4 times r year 10/12/2021 clubs or organizations you [...] place to sleep or slept in a nursing home (including now)? Sex Assigned at Date Recorded Female 10/11/2021 8:54 PM CDT documented as of this encounter Last Filed Vital Signs Vital Sign Reading Time Taken Comments Blood Pressure 123/59 10/07/2021 7:55 AM CDT Pulse 97 10/07/2021 7:55 AM CDT Temperature 36.2 ??C (97.2 ??F) 10/07/2021 7:55 AM CDT Respiratory Rate - - Oxygen Saturation - - Inhaled Oxygen Concentration - - Weight 100 kg (221 lb) 10/07/2021 7:55 AM CDT Height - - Body Mass Index - - documented in this encounter Medications at Time of Discharge Medication Sig Dispensed Refills Start Date End Date albuterol 90 mcg/actuation 0 inhaler azelastine (ASTELIN) 137 0 09/05/2021 mcg/spray [...] into 0 07/01/2019 mg suppository the rectum. esvchhdwblbu-Pc-izon-minera Take 1 tablet by 0 ls tablet [...] documented as of this encounter Progress Notes Eliseo Alcantara M.D., M.S. - 10/07/2021 8:00 AM CDT RADIATION ONCOLOGY FOLLOW-UP VISIT Supervising Pump And Still Operator: Dr. Alejandro Buchanan Home address: [address] [place] [address] [place] [phone] SUBJECTIVE History of present illness Idania Duarte is a 46 y.o. 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 Please see documentation by Dr. Alejandro Buchanan on 06/01/2021 for initial consultation. Since the patient last was seen in radiation oncology, Oncotype DX testing resulted with a recurrence score of 24. She subsequently completed four cycles of TC (docetaxel, cyclophosphamide). Her last cycle was on 09/06/2021. Her chemotherapy was tolerated reasonably well with fatigue and intermittent neuropathy. ?? The patient's oncologic history is as follows: ?? 1. March 24, 2021: Bilateral screening mammogram [...] was performed. ??Pathology demonstrated invasive ductal carcinoma, [place] grade 2. ??Angiolymphatic invasion was absent. ??Associated [...] 2021: ??Genetic counseling with Lizeth Álvarez MS, [facility] where the patient chose to proceed with testing via [facility] Breast Cancer STAT panel (9 genes) with reflex to the complete [facility] Hereditary Cancers Panel + Melanoma Panel (51 genes). 6. April 25, 2021: ??Genetic testing result was negative. 7. May 06, 2021: ??Pre-op appointment with Dr. Noemi Abernathy. ??The patient was advised to stop her control pill due to ER+/KY+ breast cancer. 8. May 10, 2021: ??Left [...] ??Pathology oftumor #2 demonstrated invasive lobular carcinoma, Nev[place] grade 1, measuring 0.15 cm. ??Invasive carcinoma was 0.1 cm from the medial margin.?Estrogen receptor negative.?Progesterone receptor negative. ??HER2 by IHC negative (0) ??Ductal carcinoma in-situ, [...] 24, 2021: ??Medical Oncology consultation with Dr. Mraifer Sahu who discussed overalltreatment plan including lumpectomy followed by chemotherapy followed by radiation followed by endocrine therapy for 5-10 years. ??We will request Oncotype DX recurrence score. ??With regards to the invasive lobular carcinoma, pathology will be reviewed at Tumor Board. ??Recommended to discontinue control pills. ??The patient will discuss total abdominal hysterectomy and bilateral salpingo oophorectomy with her spool worker. 10. May 25, 2021: ??Follow-up appointment with Dr. eL who reviewed the patient's pathology results. ??No further surgical intervention was recommended. ??Oncotype DX was pending. ??They will be discussing her pathology results at tumor board conference next week. ??Referral to Radiation Oncology. 11. June 01, 2021: Radiation oncology consultation with Dr. Alejandro Buchanan. Patient was recommended for radiation treatment to commence following results of Oncotype DX and possible adjuvant chemotherapy. 12. July 04 - September 06, 2021: Initiated four planned cycles of TC (docetaxel, cyclophosphamide) with Neulasta after her Oncotype DX recurrence score resulted in 24. Her chemotherapy was tolerated reasonably well with fatigue and intermittent neuropathy. ? In the clinic today, Idania Duarte reports that her fatigue has improved after finishing chemotherapy, and she continues to have some stable neuropathy, worst in her left thumb. 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 She also has mild neuropathy in her bilateral feet. Otherwise she has no concerns. She denies any continued post-operative pain (she has mild lower back pain) and has full range of motion of her bilateral upper extremities with no edema. ?? Patient reported symptom screen Fatigue (scale: 0 = no fatigue; 10 = worst fatigue you can imagine): 3 Pain (scale: 0 = no pain; 10 = worst pain you can imagine):??5 Overall quality of life (scale: 0 = as bad as can be; 10 = as good as can be): 8 ?? Past medical history Pertinent past medical history, past surgical history, medications, allergies, social history, and family history were reviewed. Pertinent past medical history includes ulcerative colitis on Entyvio (vedolizumab, monoclonal antibody), cutaneous melanoma, BCC, and SCC. The patient does not have a history of lupus or scleroderma. The patient has no implanted medical devices. Social history is significant for former smoker, 2.5 pack year history (0.25 ppd for approximately 10 years, quit in 2013). ?? Prior history of radiation None ?? Review of systems Review of systems as noted in HPI. OBJECTIVE Vitals Weight: 100.4 kg, Temperature: 97.2 degrees Farenheit, Pulse: 97 beats per minute and Blood pressure: 123/59 mmHg Physical exam ECO Constitutional: Pleasant, in no acute distress, overweight, ambulates without an assistive device. Respiratory: CTAB, no r/r/w, normal work of breathing on room air Cardiovascular: RRR, no m/r/g Breast: Left breast examined. Surgical scar around the nipple is well healed. No erythema. Nipple iseverted. One palpation, no appreciable masses and some fibrosis without nodularity around the left upper inner breast. Musculoskeletal: No UEE, full ROM of b/l UE, symmetric wrist circumference Imaging No recent imaging. ?? Pathology No recent pathology. ?? Labs Oncotype DX recurrence score: 24 ?? ASSESSMENT AND PLAN #1 Stage IA (pT2, pN0(sn), cM0, G2, ER+, KY+, HER2-)??invasive ductal carcinoma of the upper inner quadrant of the left breast, status post margin negative lumpectomy on May 10, 2021 #2 Stage IA (pT1a, pN0(sn), cM0, G1, ER-, KY-, HER2-)??invasive lobular carcinoma of the upper innerquadrant of the left breast, status post margin negative lumpectomy on May 10, 2021 #3??Ulcerative colitis, well controlled on Entyvio ?? Idania Duarte is a 46 y.o. female with stage IA pT2(2) cN0(sn) cM0 grade 2, ER+, KY+, HER2- invasiveductal carcinoma of the upper inner left breast and additional stage 1A pT1a pN0(sn) cM0 grade 1, ER-, KY-, HER2- invasive lobular carcinoma of the upper inner left breast who is seen in Radiation Oncology for a discussion of radiation treatment. ?? I have reviewed the pertinent history, laboratory, and imaging studies. Radiation treatment was dicussed in detail and documented previously by Dr. Alejandro Buchanan in the initial consultation. We reviewed the salient points of that discussion, including the logistics of radiation simulation, planning, and daily treatment as well as the acute and late toxicities associated with treatment. The patient displayed understanding of the risks and benefits. ?? In this setting, we would recommend treating the left whole breast to 4005 cGy in 15 fractions followed by a lumpectomy cavity boost to 1000 cGy in 4 fractions. We will utilize 3DCRT with a breath holdto minimize lung and cardiac dose. We will plan for CT simulation later today on 10/07/2021 and initiation of treatment on approximately 10/11/2021. The patient has not been sexually active and takes regular oral contraceptives without missing doses. She is confident that she is not . ?? All questions were answered to the patient's satisfaction. Our departmental contact information was provided to the patient who was encouraged to contact the Department of Radiation Oncology with further questions or concerns. ?? Upcoming oncologic appointments and tests None ? Dr. Alejandro Buchanan is the distributed energy systems consultant; please see attestation for further details. ?? Eliseo Alcantara M.D., M.S. Associated attestation - Alejandro Buchanan M.D. - 10/07/2021 6:04 PM CDT I saw and evaluated the patient and participated in the wilkins portions of the service. I reviewed the documentation of Eliseo Alcantara M.D. and agree with his findings and plan. In brief, Idania Duarte is a 46 y.o. female with stage IA (pT2(2), pN0(sn), cM0, G2, ER+, KY+, HER2-) invasive ductal carcinoma of the left breast. I saw her in consultation on June 01, 2021. She returns today for a CT simulation having completed 4 cycles of docetaxel and cyclophosphamide on September 06, 2021. She is currently feeling well. Her ECOG performance status is 0. OBJECTIVE PHYSICAL EXAM General: Patient is awake, alert, and oriented to person, place, and time. No apparent distress. I saw her at the CT simulation with the pressurization mechanic of the therapists, Amalia, JOSE Breast: Examined in the supine position. The left breast has an everted nipple with some fibrosis inthe upper inner quadrant in the operative bed but no palpable masses. Her scar in the medial aspect of the nipple-areolar border is very difficult to visualize. ASSESSMENT / PLAN #1 Stage IA (pT2, pN0(sn), cM0, G2, ER+, KY+, HER2-) invasive ductal carcinoma of the upper inner quadrant of the left breast, status post margin negative lumpectomy on May 10, 2021 #2 Stage IA (pT1a, pN0(sn), cM0, G1, ER-, KY-, HER2-) invasive lobular carcinoma of the upper inner quadrant of the left breast, status post margin negative lumpectomy on May 10, 2021 #3 4 cycles of docetaxel and cyclophosphamide completed on September 07, 2019 to #4 Ulcerative colitis, well controlled on Entyvio We plan to treat the left whole breast to a dose of 4005 cGy in 15 fractions followed by boost of 1000 cGy in 4 fractions to the lumpectomy cavity. We will utilize breath hold technique for cardiac sparing. We will endeavor to begin treatment on October 11, 2021. The patient verbalized satisfaction withthis plan. Signed by: Alejandro Buchanan M.D. 10/07/2021 6:04 PM CDT [facility] [place] documented in this encounter Plan of Treatment Scheduled Referrals Name Type Priority Associated Order Schedule Diagnoses Radiation Oncology Outpatient Referral Routine On ce for 1 office visit Occurrences sta rting (clinic) 10/07/2021 unti l 10/07/2021 documented as of this encounter Visit Diagnoses Diagnosis Malignant Neoplasm Of Breast Upper Inner Quadrant Female Left (HCC) - Primary documented in this encounter
--- OUTSIDE RECORDS SUMMARY | 2022-05-09 19:18 | XMS_ITS | Encounter Summary ---
:1975 Author Organization [facility] Address [address] [place] [address] Care Team Providers Name Role Phone Unavailable Primary Care Provider Unavailable Reason for Referral Radiation Therapy (Routine) - Closed Specialty Diagnoses / Procedures Referred By Contact Refer red To Contact Diagnoses Malignant Neoplasm Of Breast Upper Inner Quadrant Female Left (HCC) Alejandro Buchanan M.D. [facility] Procedures Initial Rad Onc Treatment Planning CT Simulation [address] [place] [address] Referral ID Status Reason Start Date Expiration Date Visits Requ ested Visits Authorized [id number] Closed 09/20/2021 09/20/2022 1 1 Reason for Visit Radiation Therapy (Routine) - Closed Specialty Diagnoses / Procedures Referred By Contact Refer red To Contact Diagnoses Malignant Neoplasm Of Breast Upper Inner Quadrant Female Left (HCC) [facility]. [facility] Procedures Initial Rad Onc Treatment Planning CT Simulation [address] [place] [address] Referral ID Status Reason Start Date Expiration Date Visits Requ ested Visits Authorized [id number] Closed 09/20/2021 09/20/2022 1 1 Encounter Details Date Type Department Care Team Description 10/07/2021 Hospital Encounter Department of Alejandro Buchanan Neoplasm Radiation Oncology Deena King Of Breast Upper in [place], [facility] [address] [place], [place] Female Left (HCC) [address] [facility] [address] [place], [place] [phone] [address] (Work) [phone] Social History Tobacco Use Types Packs/Day Years [...] or relatives? How often do you attend jehovah's witness or Never 2021 jain services? Do you belong to any clubs or Yes 10/12/2021 organizations such as jehovah's witness groups, unions, fraternal or athletic groups, or [...] place to sleep or slept in a halfway (including now)? Sex Assigned at Date Recorded [...] into 0 07/01/2019 mg suppository the rectum. haogirvdposs-Zf-tpag-minera Take 1 tablet by 0 ls tablet [...] per tablet documented as of this encounter Procedure Notes Paty Perez, RTT - 10/07/2021 8:30 AM CDTAssociated Order(s): Initial Rad Onc Treatment Planning CT Simulation Pre-Procedure Diagnose(s): Malignant Neoplasm Of Breast Upper Inner Quadrant Female Left (HCC) Post-Procedure Diagnose(s): Malignant Neoplasm Of Breast Upper Inner Quadrant Female Left (HCC) Initial Rad Onc Treatment Planning CT Simulation Date/Time: 10/07/2021 9:28 AM Performed by: Alejandro Buchanan M.D. Authorized by: Leenstra, Alejandro L, M.D. Simulation was performed under physician supervision based on physician order in preparation for radiation therapy. Physician was immediately available to provide assistance and direction throughout the procedure. Written consent for treatment was completed or confirmed. The patient was appropriately identified and placed in the treatment position using the necessary immobilization to ensure a reproducible treatment position. Reference mcclellan were placed to facilitate marking of isocenter. Area scanned:Chest Contrast used for the simulation procedure: None Patient position: Head first supine and arms up Custom immobilization: Breast board Motion management: Breath hold scan Bolus: No CT guidance: Following positioning of the patient, a series of slices was obtained to be utilized intreatment planning. CT images were transferred to the [employer] treatment planning system, after a reference isocenter was determined and marked. Segmentation and treatment planning will take place priorto treatment delivery. Patient set up and imaging was appropriate and completed without incident. Sales Representative Business Courses use:No documented in this encounter Plan of Treatment Not on filedocumented as of this encounter Procedures Procedure Name Priority Date/Time Associated Comments Diagnosis INITIAL RAD ONC Routine 10/07/2021 9:28 AM Malignant Neoplasm Results for this TREATMENT PLANNING CDT Of Breast Upper proced ure are in CT SIMULATION Inner Quadrant the results Female Left (HCC) section. documented in this encounter Results Initial Rad Onc Treatment Planning CT Simulation (10/07/2021 9:28 AM CDT) Specimen (Source) Anatomical Location Collection Method / Collectio n Time Received Time / Laterality Volume Narrative WHITING CINDI - 10/07/2021 9:28 AM CDT Paty Perez, RTT ? 10/07/2021 ??9:28 AM Initial Rad Onc Treatment Planning CT Si mulation Date/Time: 10/07/2021 9:28 AM Performed by: Alejandro Buchanan M.D. Authorized by: Alejandro Buchanan M.D. Alejandro Buchanan M.D. RADIATION ONCOLOGY ORDERABLE S Performing Organization Address City/State/ZIP Code Phon e Number [place] documented in this encounter Visit Diagnoses Diagnosis Malignant Neoplasm Of Breast Upper Inner Quadrant Female Left (HCC) documented in this encounter
--- OUTSIDE RECORDS SUMMARY | 2022-05-09 19:18 | XMS_ITS | Encounter Summary ---
:1975 Author Organization [facility] Address [address] [place] [address] Care Team Providers Name Role Phone Unavailable Primary Care Provider Unavailable Reason for Referral Specialty Diagnoses / Procedures Referred By Contact Refer red To Contact Cece Bolton P.A.-C ., M.S. [facility] Region [address] [place] [phone] Referral ID Status Reason Start Date Expiration Date Visits Requ ested Visits Authorized Encounter Details Date Type Department Care Team Description 10/13/2021 Hospital Encounter Department of Deshawn Buchanan M.D. [address] [place] [phone] Malignant Neoplasm Radiation Oncology Sandra Dang, R.NJim [address] [place] [phone] Of Breast Upper in [facility] Female Left (HCC) [address] [place] [address] Social History Tobacco Use Types Packs/Day Years [...] or relatives? How often do you attend religion or Never 2021 sabianism services? Do you belong to any clubs or Yes 10/12/2021 organizations such as religion groups, unions, fraternal or athletic groups, or [...] place to sleep or slept in a prison (including now)? Education Answer Date Recorded What [...] into 0 07/01/2019 mg suppository the rectum. eeevfjtcvyca-Po-iajs-minera Take 1 tablet by 0 ls tablet [...] of this encounter Plan of Treatment Scheduled Referrals Name Type Priority Associated Order Schedule Diagnoses Radiation Oncology Outpatient Referral Routine Malignant Neopl asm Once for 1 - Nurse education Of Breast Upper Occurre nces starting visit (clinic) Inner Quadrant 10/13/2021 until Female Left (HCC) 10/13/2021 documented as of this encounter Visit Diagnoses Diagnosis Malignant Neoplasm Of Breast Upper Inner Quadrant Female Left (HCC) documented in this encounter
--- OUTSIDE RECORDS SUMMARY | 2022-05-09 19:18 | XMS_ITS | Encounter Summary ---
:1975 Author Organization [facility] Address [address] [place] [address] Care Team Providers Name Role Phone Unavailable Primary Care Provider Unavailable Encounter Details Date Type Department Care Team Description 12/16/2019 Orders Only Division of Gastroenterology Cindy Escoto in [facility] [address] [place] [phone] Social History Tobacco Use Types Packs/Day Years [...] or relatives? How often do you attend adventist or Never 2021 yarsanism services? Do you belong to any clubs or Yes 10/12/2021 organizations such as adventist groups, unions, fraternal or athletic groups, or [...] or slept in a snf (including now)? Sex Assigned at Date Recorded Female 10/11/2021 8:54 PM CDT documented as of this encounter Plan of Treatment Not on filedocumented as of this encounter Visit Diagnoses Not on filedocumented in this encounter
--- OUTSIDE RECORDS SUMMARY | 2022-05-09 19:18 | XMS_ITS | Encounter Summary ---
:1975 Author Organization [facility] Address [address] [place] [address] Care Team Providers Name Role Phone Unavailable Primary Care Provider Unavailable Reason for Visit Reason Comments COVID Nurse Joellen Encounter Details Date Type Department Care Team Description 10/08/2019 Clinical Division of DENEEN Monk Communication Gastroenterology in Provider [place], [place] [address] [place] [address] Social History Tobacco Use Types Packs/Day Years [...] or relatives? How often do you attend adventism or Never 2021 confucianism services? Do you belong to any clubs or Yes 10/12/2021 organizations such as adventism groups, unions, fraternal or athletic groups, or [...] minutes do you engage in exercise at is 30 min 10/12/2021 level? Stress Answer [...] or slept in a correction (including now)? Sex Assigned at Date Recorded Female 10/11/2021 8:54 PM CDT documented as of this encounter Miscellaneous Notes Telephone Encounter - Asia Paredes - 10/08/2019 4:15 PM CDT 1. In the past 5 days, do you, anyone in the household, or anyone you have had prolonged exposure have (any of the following)? a. Fever ? 38.0 C (100.5 F) last 24 hours? no 2. In the past 5 days do you, anyone in the household, or anyone you have had prolonged exposure to have new symptoms (Specifically: cough, shortness of breath, respiratory distress, sore throat, diarrhea, chills, myalgia's (muscle aches), loss of smell, or change or loss of taste sensation)? no 3. In the past 14 days have you, anyone in the household, or anyone you have had prolonged exposure to had close contact with persons who are under quarantine or isolation for COVID? no 4. In the last 14 days, have you, anyone in the household, or anyone you have had prolonged exposureto had close contact with a patient with known or possible COVID-19? no 5. In the past 14 days have you been tested for COVID-19 with a positive or pending result? no Route reply to: Scheduling Contact Number: documented in this encounter Plan of Treatment Not on filedocumented as of this encounter Visit Diagnoses Not on filedocumented in this encounter
--- OUTSIDE RECORDS SUMMARY | 2022-05-09 19:18 | XMS_ITS | Encounter Summary ---
:1975 Author Organization [facility] Address [address] [place] [address] Care Team Providers Name Role Phone Unavailable Primary Care Provider Unavailable Reason for Visit Radiation Therapy (Routine) - Closed Specialty Diagnoses / Procedures Referred By Contact Refer red To Contact Diagnoses Malignant Neoplasm Of Breast Upper Inner Quadrant Female Left (HCC) Alejandro Buchanan M.D. [facility] Procedures Prior Auth Rad Tx GA RADTN TX DEL >=1 MEV COMPLEX [address] [place] [address] Referral ID Status Reason Start Date Expiration Date Visits Requ ested Visits Authorized [id number] Closed 10/10/2021 09/20/2022 19 19 Encounter Details Date Type Department Care Team Description 10/13/2021 Hospital Encounter Department of Radiation Ivan Buchanan, Oncology in [place] [address] [facility] [address] [place], [place] [id number] [phone] Social History Tobacco Use Types Packs/Day Years [...] or relatives? How often do you attend jew or Never 2021 anglican services? Do you belong to any clubs or Yes 10/12/2021 organizations such as jew groups, unions, fraternal or athletic groups, or [...] or slept in a assisted (including now)? Education Answer Date Recorded What [...] into 0 07/01/2019 mg suppository the rectum. [id number]-Un-ruok-minera Take 1 tablet by 0 ls tablet [...]
--- OUTSIDE RECORDS SUMMARY | 2022-05-09 19:19 | XMS_ITS | Encounter Summary ---
:1975 Author Organization [facility] Address [address] [place] [address] Care Team Providers Name Role Phone Sheeba Castillo APRN, CNP Primary Care Provider [phone] Reason for Visit Reason Comments LAB RESULTS Encounter Details Date Type Department Care Team Description 02/15/2021 Telephone Specialty Center Sravan Turner MD LAB RESULTS Gastroenterology [address] 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 Letter summarizing results, sent to patient. Paperworkwith blood test results submitted to my office out box to be uploaded into [employer] section if notalready done. Thanks. Charles Duran RN - 02/15/2021 2:22 PM CDT Fax from [facility] with lab results. Placed in Dr Haines's mailbox. documented in this encounter Plan of Treatment Upcoming Encounters Date Type Specialty Care Team Description 05/12/2022 Hospital Encounter Chemo Therapy/Infusion Services 09/15/2022 Telemedicine Gastroenterology Eusebio Haines MD [address] [place], [place] [address] documented as of this encounter Visit Diagnoses Not on filedocumented in this encounter Care Teams Manager Infrastructure Relationship Specialty Start Date End Date Sheeba Castillo, CUSTOMER CONSULTING MANAGER, GLUE JOINTER FEEDER PCP - General Nurse Practitioner 07/20/16 [address] MAGDALENA Dinh [phone] documented as of this encounter
--- OUTSIDE RECORDS SUMMARY | 2022-05-09 19:19 | XMS_ITS | Encounter Summary ---
:1975 Author Organization [facility] Address [address], [place] [address] Care Team Providers Name Role Phone Sheeba Castillo APRN, CNP Primary Care Provider [phone] Encounter Details Date Type Department Care Team Description 11/11/2021 Hospital Encounter [facility] Other ulcerative [address] [facility] [place] [address] bleeding (HRC) (Primary [phone] Dx) Social History Tobacco Use Types Packs/Day Years Used Date Smoking Tobacco: Former Cigarettes 0.3 15 Quit : 04/25/2015 Smokeless Tobacco: Never Alcohol Use Standard Drinks/Week Comments Yes 1 (1 standard drink = 0.6 oz pure alcoho l) 1-3 drinks a week Sex Assigned at Date Recorded Female 05/09/2021 7:19 PM FULFILLMENT REPRESENTATIVE documented as of this encounter Last Filed Vital Signs Vital Sign Reading Time Taken Comments Blood Pressure 146/82 11/11/2021 8:37 AM CDT Pulse 99 11/11/2021 8:37 AM CDT Temperature 36.7 ??C (98 ??F) 11/11/2021 8:37 AM CDT Respiratory Rate - - Oxygen [...] Take 1 Tablet by 120 Tablet 3 04/08/ 020 03/10/2022 MG tablet mouth two times [...] documented as of this encounter Progress Notes Dedrick Mclain RN - 11/11/2021 8:30 AM CDT Dx: Ulcerative Colitis Provider: Ramiro Bojorquez Is this the first dose: No History of previous infusion reactions? No Premedications: none Patient arrived for Entyvio infusion. Vital signs stable. No signs of infection. Tolerated infusion well. Discharged in stable condition. Will return to clinic for next infusion as scheduled in 8 weeks. documented in this encounter Plan of Treatment Upcoming Encounters Date Type Specialty Care Team Description 05/12/2022 Hospital Encounter Chemo Therapy/Infusion Services 09/15/2022 Telemedicine Gastroenterology Eusebio Haines MD [address] [place], [place] [id number] documented as of this encounter Visit Diagnoses Diagnosis Other ulcerative colitis with rectal ble eding (HRC) - Primary documented in this encounter Administered Medications Inactive Administered Medications - up to 3 most recent administrations Medication Order MAR Action Action Date Dose Rate Site sodium chloride 0.9% injection Given 11/11/2021 8:57 AM CDT 10 m L 10-60 mL 10-60 mL, Intravenous, PRN BEFORE&AFTER MEDICATIONS OR LAB DRAW, Line Patency, Starting on Sun11/11/21 at 0837, Until Sun11/11/21 at 1340, For 1 day vedolizumab (Entyvio) 300 mg in sodium Started 11/11/2021 8:56 AM CDT 300 mg chloride 0.9 % 250 mL infusion 300 mg, Intravenous, Administer over 30 Minutes, ONCE, On Sun11/11/21 at 0930, For 1 dose, BIOTHERAPY - Must be given by chemotherapy/biotherapy certified documented in this encounter Care Teams Stripping Shovel Oiler Relationship Specialty Start Date End Date Sheeba Castillo, STRIPPER MACHINE OPERATOR, TANK REFINISHER PCP - General Nurse Practitioner 07/20/16 [address] MAGDALENA Dinh [phone] documented as of this encounter
--- OUTSIDE RECORDS SUMMARY | 2022-05-09 19:19 | XMS_ITS | Clinical Summary ---
:1975 Author Organization [facility] Address [address] [place] [address] Care Team Providers Name Role Phone Sheeba Castillo APRN, CNP Primary Care Provider [phone] Source Comments You are receiving this document [...] for each transition of care or referral. [facility] Allergies No known active allergies Medications Medication Sig Dispensed Refills Start Date End Date Status Multiple Vitamin Take 1 tablet by 0 11/14/2011 Active (MULTI-VITAMIN OR) mouth daily (every 24 hours). Calcium Carbonate Take by mouth. 0 02/15/2012 Active Antacid 1000 MG Reported on 08/14/2016 triamterene-hydrochloro Take 1 Tablet by 90 Tablet 3 0 Active thiazide (MAXZIDE-25) mouth daily. 37.5-25 MG tabletIndications: Essential hypertension (HRC) norethindrone-eth Take 1 Tablet by 112 Tablet 3 05/21/2020 Active estradiol (PIRMELLA mouth daily. ) 1-35 MG-MCG CONTINOUSLY tabletIndications: Well adult exam dicyclomine (BENTYL) 20 TAKE 1 TABLET BY 360 Tablet 2 06/09/20 21 Active MG tabletIndications: MOUTH 4 TIMES Irritable bowel DAILY NEEDED syndrome, unspecified type, Chronic ulcerative proctitis with rectal bleeding (HRC) vedolizumab (ENTYVIO) Maintenance 0 03/10/2022 Active 300 MG SOLR Entyvio infusions injectionIndications: every 8 weeks. 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 type Active Problems Problem Noted Date Ulcerative [...] genital symptoms 12/19/2004 05/04/2006 Overview: LW Onset: [id number] ; Pelvic Pain Female Irritable bowel syndrome 11/29/2002 12/17/2017 Encounters Date Type Specialty Care Team Description 03/14/2022 Refill Gastroenterology Yancy, Nayeli Lowe MD 03/10/2022 Lab Visit Laboratory Left sided coli tis with rectal bleeding (HRC); 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); Long-term curre nt use of vedolizumab 03/10/2022 Hospital Encounter Chemo Therapy/Infusion [facility] Other ulcerative Services p, colitis with re ctal [place], bleeding (HRC) (Primary MD Dx) 03/10/2022 Telemedicine Gastroenterology [place], Left sided colitis with rectal bleeding (HRC) (Primary Dx); Eusebio Lowe MD 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); Irritable bowel syndrome, unspecified type; Need for vaccin ation for pneumococcus; History of raquel st cancer; Long-term curre nt use of vedolizumab from Last 3 Months Immunizations Name Administration Dates Next Due Flu Vac Preserv Free (3+yrs) 03/04/2012, 03/10/2011, 010, 03/04/2009, 04/17/2008, 04/08/2008, 04/03/2007, 04/09/2006 H1n1 Laiv Medimmune 2-49 Yr 04/13/2009 (Intranasal) H1n1 Miv Sanofi 3+ Yr (Injected) 06/09/2013 HepB Adult (Engerix-B, 20+ yrs, 3 02/08/2006, 01/02/2002 dose series) HepB, Unspecified Formulation 08/09/2001 Influenza IIV4 (Quadrivalent) 0.5mL 03/31/2019, 03/22/2018, 03/21/2018, (08062) 03/26/2017, 03/23/2016, 03/24/2015, 03/23/2014 PCV13 (Prevnar) 05/09/2021 (Deferred: Patient Refused) PCV20 ([id number]) 03/10/2022 (Deferred: Patient Refused - Patient will [...] Date Recorded Female 05/09/2021 7:19 PM IT SUPPORT ENGINEER Last Filed Vital Signs Vital Sign Reading Time Taken Comments Blood Pressure 152/73 03/10/2022 10:51 AM CDT Pulse 90 03/10/2022 10:51 AM CDT Temperature 36.6 ??C (97.8 ??F) 03/10/2022 10:51 AM CDT Respiratory Rate 16 08/23/2020 11:41 AM IT SUPPORT ENGINEER Oxygen Saturation 98% 03/10/2022 10:51 AM CDT Inhaled Oxygen Concentration - - Weight 96.2 kg (212 lb) 01/13/2022 8:26 AM CDT Height 167.6 cm (5' 6) 08/23/2020 10:00 AM IT SUPPORT ENGINEER Body Mass Index 34.22 08/23/2020 10:00 AM IT SUPPORT ENGINEER Plan of Treatment Upcoming Encounters Date Type Specialty Care Team Description 05/12/2022 Hospital Encounter Chemo Therapy/Infusion Services 09/15/2022 Telemedicine Gastroenterology Eusebio Haines MD [address] [place] [address] Health Maintenance Due Date Last Done Comments COVID-19 Vaccine (#1) 1975 Pneumococcal (1 - PCV) 1983 Zoster/Shingles (2 of 2) 05/09/2019 03/14/2019 Pap 12/17/2020 12/17/2017, 09/30/2014, 08/11/2011, Additional history exists Adult Preventive Visit 03/15/2021 03/15/2020, 12/19/2018, 12/17/2017, Additional history exists Influenza (#1) 2022 03/23/2021, 03/31/2019, 03/22/2018, Additional history exists Mammogram 05/25/2022 05/25/2021 (Completed), 01/15/2018 Cholesterol 04/08/2025 04/08/2020, 04/24/2019, 02/20/2019, Additional history exists Colonoscopy 08/23/2025 08/23/2020, 09/22/2015 DTaP/Tdap/Td (3 - [...] results Immunosuppression section. due to drug therapy ([facility]) Long-term current use of vedolizumab CREATININE / GFR Routine 03/10/2022 10:42 Left sided colitis R esults for this AM CDT with rectal bleeding procedu re are in (HRC) the results Immunosuppression section. due to drug therapy ([facility]) Long-term current use of vedolizumab C-REACTIVE PROTEIN Routine 03/10/2022 10:42 Left sided colitis Results for this AM CDT with rectal bleeding procedu re are in (HRC) the results Immunosuppression section. due to drug therapy ([facility]) Long-term current use of vedolizumab WBC, BLOOD Routine 03/10/2022 10:42 Left sided colitis Resul ts for this AM CDT with rectal bleeding procedu re are in (HRC) the results Immunosuppression section. due to drug therapy ([facility]) Long-term current use of vedolizumab HEMOGLOBIN, BLOOD Routine 03/10/2022 10:42 Left sided colitis Results for this AM CDT with rectal bleeding procedu re are in (HRC) the results Immunosuppression section. due to drug therapy ([facility]) Long-term current use of vedolizumab VEDOLIZUMAB Routine 03/10/2022 10:42 Left sided colitis Resul ts for this QUANTITATION WITH AM CDT with rectal bleeding pr ocedure are in REFLEX TO ANTIBODIES ([facility]) the results Immunosuppression section. due to drug therapy ([facility]) Long-term current use of vedolizumab BILIRUBIN, TOTAL Routine 03/10/2022 10:42 Left sided colitis R esults for this AM CDT with rectal bleeding procedu re are in (HRC) the results Immunosuppression section. due to drug therapy ([facility]) Long-term current use of vedolizumab ALKALINE PHOSPHATASE Routine 03/10/2022 10:42 Left sided colit is Results for this ISOENZYMES AM CDT with rectal bleeding procedu re are in (HRC) the results Immunosuppression section. due to drug therapy ([facility]) Long-term current use of vedolizumab ALT (SGPT) Routine 03/10/2022 10:42 Left sided colitis Resul ts for this AM CDT with rectal bleeding procedu re are in (HR) the results Immunosuppression section. due to drug therapy ([facility]) Long-term current use of vedolizumab from Last 3 Months Results Hepatitis A Antibody, IgG (03/10/2022 10:42 AM CDT) [facility] Method Time Signature Hepatitis A Negative Positive 03/10/2022 [facility] Antibody, IgG (Non (Reactive) 7:19 PM CDT LABORATORY Reactive) Specimen Anatomical Collection Method / Collection Time Recei peña Time (Source) Location / Volume Laterality Blood Venipuncture / 03/10/2022 10:42 2 Unknown AM CDT 10:42 AM CDT Narrative [facility] - 03/10/2022 7:19 P M CDT Hepatitis A IgG antibodies not detected, suggesting lack of immunity to Hepatitis A. Eusebio Haines MD LAB_1 Performing Organization Address City/State/ZIP Code Phon e Number [facility] [address] [place] [address] Vedolizumab Quantitation with Reflex to Antibodies (03/10/2022 10:42 AM CDT) athologist Signature Vedolizumab 19.7 mcg/mL 03/14/2022 [facility] Quantitation 2:15 PM CDT LAB Comment: For concentrations of vedolizumab less t palacio or equal to 15.0 mcg/mL, reflex testing for antibodi [id number] will be performed. REFERENCE VALUE------ Lower limit of quantitation = 2.0 mcg/mL ADDITIONAL INFORMATIO N This test was developed and its performa nce characteristics determined by [facility] in a manner co nsistent with CLIA requirements. This test has not been nicho ared or approved by the U.S. Food and Drug Administration. Test Performed by: [facility] [address] [place] [address] Seismographer: Sergio Ashby M.D. Ph. D.; CLIA# [id number] Specimen Anatomical Collection Method / Collection Time Recei peña Time (Source) Location / Volume Laterality Blood Venipuncture / 03/10/2022 10:42 2 Unknown AM CDT 10:42 AM CDT Eusebio Haines MD LAB_1 Performing Organization Address City/[facility]/ZIP Code Phon e Number [facility] [place] [address] Alkaline Phosphatase Isoenzymes (03/10/2022 10:42 AM [...] Specific Alkaline Phosphatase (0070 053) and 5'-nucleotidase (1351122) may be useful in identifying d isorders of bone and liver, respectively. Alkaline Phosphatase, Other 0 U/L 03/14/2022 1 0:45 PM CDT [facility] Comment: Performed By: [facility] [address] [place] [id number] Scooter Mechanic: Jorge Matos MD, PhD Specimen Anatomical Collection Method / Collection Time Recei peña Time (Source) Location / Volume Laterality Blood Venipuncture / 03/10/2022 10:42 2 Unknown AM CDT 10:42 AM CDT Eusebio Haines MD LAB_1 Performing Organization Address City/[facility]/ZIP [facility] Phon e Number [address] [phone] Creatinine / GFR (03/10/2022 10:42 AM CDT) athologist Signature Creatinine 0.70 0.55 - 03/10/2022 [facility] 1.02 mg/dL 12:18 PM CDT LABORATORY GFR, Estimated >60 >60 03/10/2022 [facility] mL/min/1.7 12:18 PM CDT LABORATORY 3m2 Specimen Anatomical Collection Method / Collection Time Recei peña Time (Source) Location / Volume Laterality Blood Venipuncture / 03/10/2022 10:42 2 Unknown AM CDT 10:42 AM CDT Eusebio Haines MD LAB_1 Performing Organization Address City/[facility]/ZIP Code Phon e Number [facility] [address] [place] [address] Hemoglobin (03/10/2022 10:42 AM CDT) athologist Signature Hemoglobin 13.9 12.0 - 15.5 03/10/2022 [facility] g/dL 10:48 AM CDT LABORATORY Specimen Anatomical Collection Method / Collection Time Recei peña Time (Source) Location / Volume Laterality Blood Venipuncture / 03/10/2022 10:42 2 Unknown AM CDT 10:42 AM CDT Eusebio Haines MD LAB_1 Performing Organization Address [facility]/ZIP Code Phon e Number [facility] [address] [place], [place] [phone] WBC, Blood (03/10/2022 10:42 AM CDT) athologist Signature WBC 6.4 3.5 - 10.5 03/10/2022 [facility] x10(9)/L 10:48 AM CDT LABORATORY Specimen Anatomical Collection Method / Collection Time Recei peña Time (Source) Location / Volume Laterality Blood Venipuncture / 03/10/2022 10:42 2 Unknown AM CDT 10:42 AM CDT Eusebio Haines MD LAB_1 Performing Organization Address [facility]/ZIP Code Phon e Number [facility] [address] [place] [phone] (ABNORMAL) C-Reactive Protein (03/10/2022 10:42 AM CDT) athologist Signature C-Reactive 1.0 (H) 0.0 - 0.7 03/10/2022 [facility] Protein mg/dL 12:18 PM CDT LABORATORY Specimen Anatomical Collection Method / Collection Time Recei peña Time (Source) Location / Volume Laterality Blood Venipuncture / 03/10/2022 10:42 2 Unknown AM CDT 10:42 AM CDT Eusebio Haines MD LAB_1 Performing Organization Address [facility]/ZIP Code Phon e Number [facility] [address] [place] [address] ALT (SGPT) (03/10/2022 10:42 AM CDT) athologist Signature ALT (SGPT) 21 0 - 55 U/L 03/10/2022 [facility] 12:18 PM CDT LABORATORY Specimen Anatomical Collection Method / Collection Time Recei peña Time (Source) Location / Volume Laterality Blood Venipuncture / 03/10/2022 10:42 2 Unknown AM CDT 10:42 AM CDT Eusebio Haines MD LAB_1 Performing Organization Address City/[facility]/ZIP Code Phon e Number [facility] [address] [place] [address] Bilirubin, Total (03/10/2022 10:42 AM CDT) athologist Signature Bilirubin, 0.4 0.2 - 1.2 03/10/2022 [facility] Total mg/dL 12:18 PM CDT LABORATORY Specimen Anatomical Collection Method / Collection Time Recei peña Time (Source) Location / Volume Laterality Blood Venipuncture / 03/10/2022 10:42 2 Unknown AM CDT 10:42 AM CDT Eusebio Haines MD LAB_1 Performing Organization Address City/[facility]/ZIP Code Phon e Number [facility] [address] [place] [phone] from Last 3 Months Insurance Payer Benefit Plan / Subscriber ID Effective Phone Address T ype Group Dates [employer] HP COMM HP [id number] 2014-Pre C ommercial DENTAL PLAN FAMILY DENTAL sent PREFERREDONE PREFERREDONE [id number] 2020-Pre [phone] OPEN ACCESS sent [phone] [place] [address] [phone] [address] (Home) DR [id number] Sergio ROWAN N 0 (Work) [id number] Idania Duarte Personal/Famil Self 1975 [phone] 150 [address] (Home) DR [phone] Sergio ROWAN N 4 (Work) [id number] Idania Duarte Personal/Famil Self 1975 [phone] 150 [address] (Home) [phone] Sergio ROWAN N 0 (Work) [phone] Idania Duarte Personal/Famil Self 1975 [phone] 150 [address] (Home) [phone] Sergio ROWAN N 0 (Work) [phone] Advance Directives Latest Code Status on File Code Status Date Activated Date Inactivated Comments Full Code 04/30/2019 7:39 PM 05/05/2019 4:05 PM Code Status History Code Status Date Activated Date Inactivated Comments Full Code 07/25/2016 4:15 PM 07/30/2016 4:47 PM Full Code 07/12/2016 1:10 PM 07/12/2016 9:07 PM Care Teams Ice Cream Freezer Assistant Relationship Specialty Start Date End Date Sheeba Castillo, LIFE ASSURANCE REPRESENTATIVE, DECKHAND MAINTENANCE PCP - General Nurse Practitioner 07/20/16 [address] [address] MAGDALENA Dinh [address]
--- OUTSIDE RECORDS SUMMARY | 2022-05-09 19:19 | XMS_ITS | Encounter Summary ---
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 ([facility]); [place] [address] Long-term current use of peña olizumab [phone] Social History Tobacco Use Types Packs/Day Years Used Date Smoking Tobacco: Former Cigarettes 0.3 15 Quit : 04/25/2015 Smokeless Tobacco: Never Alcohol Use Standard Drinks/Week Comments Yes 1 (1 standard drink = 0.6 oz pure alcoho l) 1-3 drinks a week Sex Assigned at Date Recorded Female 05/09/2021 7:19 PM GAS TORCH BRAZIER documented as of this encounter Plan of Treatment Upcoming Encounters Date Type Specialty Care Team Description 05/12/2022 Hospital Encounter Chemo Therapy/Infusion Services 09/15/2022 Telemedicine [place] [address] [place] [address] documented as of this encounter Procedures Procedure Name Priority Date/Time Associated Diagnosis Comme nts HEPATITIS A ANTIBODY, Routine 03/10/2022 10:42 Left sided coli tis Results for this IGG AM CDT with rectal bleeding procedu re are in ([facility]) the results Immunosuppression section. due to drug therapy ([facility]) Long-term current use of vedolizumab VEDOLIZUMAB Routine 03/10/2022 10:42 Left sided colitis Resul ts for this QUANTITATION WITH AM CDT with rectal bleeding pr ocedure are in REFLEX TO ANTIBODIES ([facility]) the results Immunosuppression section. due to drug therapy ([facility]) Long-term current use of vedolizumab ALKALINE PHOSPHATASE Routine 03/10/2022 10:42 Left sided colit is Results for this ISOENZYMES AM CDT with rectal bleeding procedu re are in ([facility]) the results Immunosuppression section. due to drug therapy ([facility]) Long-term current use of vedolizumab CREATININE / GFR Routine 03/10/2022 10:42 Left sided colitis R esults for this AM CDT with rectal bleeding procedu re are in ([facility]) the results Immunosuppression section. due to drug therapy ([facility]) Long-term current use of vedolizumab HEMOGLOBIN, BLOOD Routine 03/10/2022 10:42 Left sided colitis Results for this AM CDT with rectal bleeding procedu re are in ([facility]) the results Immunosuppression section. due to drug therapy ([facility]) Long-term current use of vedolizumab WBC, BLOOD Routine 03/10/2022 10:42 Left sided colitis Resul ts for this AM CDT with rectal bleeding procedu re are in ([facility]) the results Immunosuppression section. due to drug therapy ([facility]) Long-term current use of vedolizumab C-REACTIVE PROTEIN Routine 03/10/2022 10:42 Left sided colitis Results for this AM CDT with rectal bleeding procedu re are in ([facility]) the results Immunosuppression section. due to drug therapy ([facility]) Long-term current use of vedolizumab ALT (SGPT) Routine 03/10/2022 10:42 Left sided colitis Resul ts for this AM CDT with rectal bleeding procedu re are in ([facility]) the results Immunosuppression section. due to drug therapy ([facility]) Long-term current use of vedolizumab BILIRUBIN, TOTAL Routine 03/10/2022 10:42 Left sided colitis R esults for this AM CDT with rectal bleeding procedu re are in ([facility]) the results Immunosuppression section. due to drug therapy ([facility]) Long-term current use of vedolizumab documented in this encounter Results Hepatitis A Antibody, IgG (03/10/2022 10:42 AM CDT) [facility] Method Time Signature Hepatitis A Negative Positive 03/10/2022 [facility] Antibody, IgG (Non (Reactive) 7:19 PM CDT LABORATORY Reactive) Specimen Anatomical Collection Method / Collection Time Recei peña Time (Source) Location / Volume Laterality Blood Venipuncture / 03/10/2022 10:42 2 Unknown AM CDT 10:42 AM CDT Narrative [facility] - 03/10/2022 7:19 P M CDT Hepatitis A IgG antibodies not detected, suggesting lack of immunity to Hepatitis A. Eusebio Haines MD LAB_1 Performing Organization Address City/State/ZIP Code Phon e Number [facility] [address] [place] [address] Creatinine / GFR (03/10/2022 10:42 AM CDT) [facility] Signature Creatinine 0.70 0.55 - 03/10/2022 [place] 1.02 mg/dL 12:18 PM CDT LABORATORY GFR, Estimated >60 >60 03/10/2022 [place] mL/min/1.7 12:18 PM CDT LABORATORY 3m2 Specimen Anatomical Collection Method / Collection Time Recei peña Time (Source) Location / Volume Laterality Blood Venipuncture / 03/10/2022 10:42 2 Unknown AM CDT 10:42 AM CDT Eusebio Haines MD LAB_1 Performing Organization Address City/State/ZIP Code Phon e Number [facility] [address] [place] [address] (ABNORMAL) C-Reactive Protein (03/10/2022 10:42 AM CDT) ath[facility] Signature C-Reactive 1.0 (H) 0.0 - 0.7 03/10/2022 [place] Protein mg/dL 12:18 PM CDT LABORATORY Specimen Anatomical Collection Method / Collection Time Recei peña Time (Source) Location / Volume Laterality Blood Venipuncture / 03/10/2022 10:42 2 Unknown AM CDT 10:42 AM CDT Eusebio Haines MD LAB_1 Performing Organization Address [facility]/ZIP Code Phon e Number [facility] [address] [place] [address] WBC, Blood (03/10/2022 10:42 AM CDT) ath[facility] Signature WBC 6.4 3.5 - 10.5 03/10/2022 [place] x10(9)/L 10:48 AM CDT LABORATORY Specimen Anatomical Collection Method / Collection Time Recei peña Time (Source) Location / Volume Laterality Blood Venipuncture / 03/10/2022 10:42 2 Unknown AM CDT 10:42 AM CDT Eusebio Haines MD LAB_1 Performing Organization Address [facility]/ZIP Code Phon e Number [facility] [address] [place] [address] Hemoglobin (03/10/2022 10:42 AM CDT) athologist Signature Hemoglobin 13.9 12.0 - 15.5 03/10/2022 [place] g/dL 10:48 AM CDT LABORATORY Specimen Anatomical Collection Method / Collection Time Recei peña Time (Source) Location / Volume Laterality Blood Venipuncture / 03/10/2022 10:42 2 Unknown AM CDT 10:42 AM CDT Eusebio Haines MD LAB_1 Performing Organization Address City/[facility]/ZIP Code Phon e Number [facility] [address] [place] [address] Vedolizumab Quantitation with Reflex to Antibodies (03/10/2022 10:42 AM CDT) ath[facility] Signature Vedolizumab 19.7 mcg/mL 03/14/2022 [facility] Quantitation 2:15 PM CDT LAB Comment: For concentrations of vedolizumab less t palacio or equal to 15.0 mcg/mL, reflex testing for antibodi [id number] will be performed. REFERENCE VALUE------ Lower limit of quantitation = 2.0 mcg/mL ADDITIONAL INFORMATIO N This test was developed and its performa nce characteristics determined by [facility] in a manner co nsistent with CLIA requirements. This test has not been nicho ared or approved by the U.S. Food and Drug Administration. Test Performed by: [facility] [address] [place] [address] [phone] Maritime Pilot: Sergio Ashby M.D. Ph. D.; CLIA# [id number] Specimen Anatomical Collection Method / Collection Time Recei peña Time (Source) Location / Volume Laterality Blood Venipuncture / 03/10/2022 10:42 2 Unknown AM CDT 10:42 AM CDT Eusebio Haines MD LAB_1 Performing Organization Address City/State/ZIP Code Phon e Number [facility] [place] [address] [address] [facility] Bilirubin, Total (03/10/2022 10:42 AM CDT) athologist Signature Bilirubin, 0.4 0.2 - 1.2 03/10/2022 [place] Total mg/dL 12:18 PM CDT LABORATORY Specimen Anatomical Collection Method / Collection Time Recei peña Time (Source) Location / Volume Laterality Blood Venipuncture / 03/10/2022 10:42 2 Unknown AM CDT 10:42 AM CDT Eusebio Haines MD LAB_1 Performing Organization Address City/State/ZIP Code Phon e Number [facility] [address] [place] [address] Alkaline Phosphatase Isoenzymes (03/10/2022 10:42 AM CDT) [facility] Method Time Signature Alkaline 70 40 - 120 03/14/2022 [facility] Phosphatase U/L 10:45 PM CDT LABORATORIES Alkaline 22 0 - 55 U/L 03/14/2022 [facility] Phosphatase, 10:45 PM CDT LABORATORIES Bone Alkaline 48 0 - 94 U/L 03/14/2022 [facility] Phosphatase, 10:45 PM CDT LABORATORIES Liver Comment: INTERPRETIVE INFORMATION: Alk-Phosphatas e Liver Calc Bone Specific Alkaline Phosphatase ([phone]) and 5'-nucleotidase ([id number]) may be useful in identifying d isorders of bone and liver, respectively. Alkaline Phosphatase, Other 0 U/L 03/14/2022 1 0:45 PM CDT [facility] Comment: Performed By: [facility] [address] [place] [address] Forger Helper: Jorge Matos MD, PhD Specimen Anatomical Collection Method / Collection Time Recei peña Time (Source) Location / Volume Laterality Blood Venipuncture / 03/10/2022 10:42 2 Unknown AM CDT 10:42 AM CDT Eusebio Haines MD LAB_1 Performing Organization Address City/[facility]/ZIP Code Phon e Number [address] [address] ALT (SGPT) (03/10/2022 10:42 AM CDT) athologist Signature ALT (SGPT) 21 0 - 55 U/L 03/10/2022 [place] 12:18 PM CDT LABORATORY Specimen Anatomical Collection Method / Collection Time Recei peña Time (Source) Location / Volume Laterality Blood Venipuncture / 03/10/2022 10:42 2 Unknown AM CDT 10:42 AM CDT Eusebio Haines MD LAB_1 Performing Organization Address City/[facility]/ZIP Code Phon e Number [facility] [address] [place] [address] documented in this encounter Visit Diagnoses Diagnosis Left sided colitis with rectal bleeding ([facility]) Left sided ulcerative (chronic) colitis Immunosuppression due to drug therapy ([facility]) Long-term current use of vedolizumab documented in this encounter Care Teams Retail Special Event Associate Relationship Specialty Start Date End Date Sheeba Castillo, LIBRARY CIRCULATION TECHNICIAN, TANK STAVE ASSEMBLER PCP - General Nurse Practitioner 07/20/16 [address] [place] [address] documented as of this encounter
--- OUTSIDE RECORDS SUMMARY | 2022-05-09 19:19 | XMS_ITS | Encounter Summary ---
:1975 Author Organization [employer] Address [address] [place] [address] Care Team Providers Name Role Phone Sheeba Castillo APRN, SIERRA Primary Care Provider [phone] Encounter Details Date Type Department Care Team Description 03/02/2021 Orders Only Initial Department Provider, Angelica, [facility] DONAL MONTES MD [place], [place] [address] Interface provider [phone] [place] [address] Social History Tobacco Use Types Packs/Day Years Used Date Smoking Tobacco: Former Cigarettes 0.3 15 Quit : 04/25/2015 Smokeless Tobacco: Never Alcohol Use Standard Drinks/Week Comments Yes 1 (1 standard drink = 0.6 oz pure alcoho l) 1-3 drinks a week Sex Assigned at Date Recorded Female 05/09/2021 7:19 PM JUVENILE CORRECTIONAL OFFICER documented as of this encounter Plan of Treatment Upcoming Encounters Date Type Specialty Care Team Description 05/12/2022 Hospital Encounter Chemo Therapy/Infusion Services 09/15/2022 Telemedicine Gastroenterology Eusebio Haines MD [address] [place] [address] documented as of this encounter Procedures [...] on filedocumented in this encounter Care Teams Fire Prevention Forester Relationship Specialty Start Date End Date Sheeba Castillo APRN, BEATER WORKER HELPER PCP - General Nurse Practitioner 07/20/16 [address] [place] [place] [address] documented as of this encounter
--- OUTSIDE RECORDS SUMMARY | 2022-05-09 19:19 | XMS_ITS | Encounter Summary ---
:1975 Author Organization [employer] Address [address] [place] [address] Care Team Providers Name Role Phone Sheeba Castillo APRN, CNP Primary Care Provider [phone] Reason for Visit Reason Comments Infusion Encounter Details Date Type Department Care Team Description 03/10/2022 [facility] MD Griselda colitis with rectal [address] [place] [address] [place] Davies (Primary Dx) [place] [phone] Social History Tobacco Use Types Packs/Day Years Used Date Smoking Tobacco: Former Cigarettes 0.3 15 Quit : 04/25/2015 Smokeless Tobacco: Never Alcohol Use Standard Drinks/Week Comments Yes 1 (1 standard drink = 0.6 oz pure alcoho l) 1-3 drinks a week Sex Assigned at Date Recorded Female 05/09/2021 7:19 PM POULTRY HUSBANDRY WORKER documented as of this encounter Last [...] Services 09/15/2022 Telemedicine Gastroenterology Eusebio Haines MD [address] [place], [place] [id number] documented as of this encounter Visit Diagnoses [...] certified documented in this encounter Care Teams Cytogeneticist Relationship Specialty Start Date End Date Sheeba Castillo, RUDY, MINERAL TECHNOLOGIST PCP - General Nurse Practitioner 07/20/16 [address] [place] [address] [address] documented as of this encounter
--- OUTSIDE RECORDS SUMMARY | 2022-05-09 19:19 | XMS_ITS ---
:1975 Author Organization [employer] Address [address] [place] [address] Care Team Providers Name Role Phone Sheeba Castillo APRN, SIERRA Primary Care Provider [phone] Active Problems Problem Noted Date Ulcerative rectosigmoiditis [...] treatments are documented for this patient in [facility]. Treatments may have been administered in another system. Resolved Problems Problem Noted Date Resolved Date JANNET (generalized anxiety disorder) 01/18/201511/17 Situational stress 01/18/2015 11/18/2015 Chronic headaches 08/11/2011 12/17/2017 Concussion 08/11/2011 12/17/2017 Overview: February 2008, thrown from horse. History of tobacco use 08/11/2011 12/17/2017 Hx of tonsillectomy 08/11/2011 12/14/2016 Female genital symptoms 12/19/2004 05/04/2006 Overview: LW Onset: [id number] ; Pelvic Pain Female Irritable bowel syndrome 11/29/2002 12/17/2017
--- OUTSIDE RECORDS SUMMARY | 2022-05-09 19:19 | XMS_ITS | Encounter Summary ---
:1975 Author Organization [employer] Address [address] [place] [address] Care Team Providers Name Role Phone Sheeba Castillo APRN, SIERRA Primary Care Provider [phone] Encounter Details Date Type Department Care Team Description 09/30/2021 Orders Only HIM DEPARTMENT Provider, Lu [place] [address] Social History Tobacco Use Types Packs/Day Years Used Date Smoking Tobacco: Former Cigarettes 0.3 15 Quit : 04/25/2015 Smokeless Tobacco: Never Alcohol Use Standard Drinks/Week Comments Yes 1 (1 standard drink = 0.6 oz pure alcoho l) 1-3 drinks a week Sex Assigned at Date Recorded Female 05/09/2021 7:19 PM PROCESS DEVELOPMENT ENGINEER documented as of this encounter Plan of Treatment Upcoming Encounters Date Type Specialty Care Team Description 05/12/2022 Hospital Encounter Chemo Therapy/Infusion Services 09/15/2022 Telemedicine Gastroenterology Eusebio Haines MD [address] [place], [place] [address] documented as of this encounter Procedures Procedure [...] on filedocumented in this encounter Care Teams Bicycle Technician Relationship Specialty Start Date End Date Sheeba Castillo, RUDY, SYSTEMS SOFTWARE SPECIALIST PCP - General Nurse Practitioner 07/20/16 [address] [place] [address] documented as of this encounter
--- OUTSIDE RECORDS SUMMARY | 2022-05-09 19:19 | XMS_ITS | Encounter Summary ---
:1975 Author Organization [email or web address] Address [address] [place] [address] Care Team Providers Name Role Phone Sheeba Castillo APRN, CNP Primary Care Provider [phone] Reason for Visit Reason Comments Medication Questions Entyvio Encounter Details Date Type Department Care Team Description 06/28/2021 Telephone Specialty Center [address] Sravan Haines MD Medication Questions Gastroenterology [address] (Entyvio) [address] 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 Explained her that if she develops any flares while vedolizumab is held that she can contact me for substitute treatments while Entyvio infusions are held. I called Oralia from [facility] to discuss these recommendations with [...] then consider when to resume vedolizumab infusions. NOLOGY INTEGRATION SPECIALIST Fidel Song RN - 06/28/2021 3:01 PM CST Nurse Oralia from [facility] calling with update. Pt recently found out she has breast cancer. Gets entyvio every 8 weeks. Set to start chemotherapy next week. Oncologist Dr. Sahu wanting to know if ptshould be off entyvio due to chemo. Next entyvio scheduled 07/07/21. Please advise. Nurse Barton [phone]. NOLOGY INTEGRATION SPECIALIST documented in this encounter Plan of Treatment Upcoming Encounters Date Type Specialty Care Team Description 05/12/2022 Hospital Encounter Chemo Therapy/Infusion Services 09/15/2022 Telemedicine Gastroenterology Eusebio Haines MD [address] [place] [address] documented as of this encounter Visit Diagnoses Not on filedocumented in this encounter Care Teams Meat Grader Relationship Specialty Start Date End Date Sheeba Castillo, EXPLOSIVES WORKER, CONTENT STRATEGY LEAD PCP - General Nurse Practitioner 07/20/16 [address] [place] [address] documented as of this encounter
--- OUTSIDE RECORDS SUMMARY | 2022-05-09 19:19 | XMS_ITS | Encounter Summary ---
:1975 Author Organization [employer] Address [address] [place] [address] Care Team Providers Name Role Phone Sheeba Castillo APRN, CNP Primary Care Provider [phone] Reason for Visit Reason Comments Infusion Encounter Details Date Type Department Care Team Description 01/13/2022 [facility] MD Griselda colitis with rectal [address] [place] [address] Katie Davies (Primary Dx) [place] [phone] Social History Tobacco Use Types Packs/Day Years Used Date Smoking Tobacco: Former Cigarettes 0.3 15 Quit : 04/25/2015 Smokeless Tobacco: Never Alcohol Use Standard Drinks/Week Comments Yes 1 (1 standard drink = 0.6 oz pure alcoho l) 1-3 drinks a week Sex Assigned at Date Recorded Female 05/09/2021 7:19 PM PRICING CONSULTANT documented as of this encounter Last [...] Body Mass Index 34.22 08/23/2020 10:00 AM PRICING CONSULTANT documented in this encounter Medications at Time [...] as of this encounter Progress Notes Dahiana Ornelas, MARIO - 01/13/2022 8:30 AM CDT Dx: Ulcerative Colitis Provider: Dr Bojorquez Is this the first dose: No History of previous infusion reactions? No Premedications: None Patient arrived for Entyvio infusion. Vital signs stable. No signs of infection. Tolerated infusion well. Discharged in stable condition. Will return to clinic for next infusion as scheduled in 8 weeks. Dahiana Ornelas, MARIO 9:23 AM 01/13/2022 documented in this encounter Plan of Treatment Upcoming Encounters Date Type Specialty Care Team Description 05/12/2022 Hospital Encounter Chemo Therapy/Infusion Services 09/15/2022 Telemedicine Gastroenterology Eusebio Haines MD [address] [place] [address] documented as of this encounter Visit Diagnoses [...] certified documented in this encounter Care Teams Slubber Hand Relationship Specialty Start Date End Date Sheeba Castillo, PROFESSOR OF JOURNALISM, REVIVAL CLERK PCP - General Nurse Practitioner 07/20/16 [address] [place] [address] documented as of this encounter
--- OUTSIDE RECORDS SUMMARY | 2022-05-09 19:19 | XMS_ITS | Encounter Summary ---
:1975 Author Organization [employer] Address [address], [place] [address] Care Team Providers Name Role Phone Sheeba Castillo APRN, SIERRA Primary Care Provider [phone] Reason for Visit Reason Comments Refill Encounter Details Date Type Department Care Team Description 06/09/2021 Refill Specialty Center Sravan Turner MD Refill Gastroenterology [address] [place] [address] [place], [place] [address] [phone] Social History Tobacco Use Types Packs/Day Years Used Date Smoking Tobacco: Former Cigarettes 0.3 15 Quit : 04/25/2015 Smokeless Tobacco: Never Alcohol Use Standard Drinks/Week Comments Yes 1 (1 standard drink = 0.6 oz pure alcoho l) 1-3 drinks a week Sex Assigned at Date Recorded Female 05/09/2021 7:19 PM GENERATION TECHNOLOGIST documented as of this encounter Nursing Notes Beth Nichols RN - 06/09/2021 8:50 AM CST Last Visit - 01/28/21 - Yancy Next Visit - None Requested Prescriptions Pending Prescriptions Disp Refills ??? dicyclomine (BENTYL) 20 MG tablet [Pharmacy Med Name: DICYCLOMINE HCL 20 MG TABS 20 Tablet] 360 Tablet 2 Sig: TAKE 1 TABLET BY MOUTH 4 TIMES DAILY NEEDED RATION TECHNOLOGIST documented in this encounter Plan of Treatment Upcoming Encounters Date Type Specialty Care Team Description 05/12/2022 Hospital Encounter Chemo Therapy/Infusion Services 09/15/2022 Telemedicine Gastroenterology Eusebio Haines MD [address] [place], [place] [id number] documented as of this encounter Visit Diagnoses Diagnosis Irritable bowel syndrome, unspecified ty pe Chronic ulcerative proctitis with rectal bleeding ([facility]) Ulcerative (chronic) proctitis documented in this encounter Care Teams Compressed Gas Plant Worker Relationship Specialty Start Date End Date Sheeba Castillo APRN, TOOL TURRET LATHE SET UP OPERATOR PCP - General Nurse Practitioner 07/20/16 [address] [place] [address] documented as of this encounter
--- OUTSIDE RECORDS SUMMARY | 2022-05-09 19:19 | XMS_ITS | Encounter Summary ---
:1975 Author Organization [employer] Address [address], [place] [address] Care Team Providers Name Role Phone Sheeba Castillo APRN, SIERRA Primary Care Provider [phone] Reason for Visit Reason Onset Date Comments Refill 03/14/2022 Encounter Details Date Type Department Care Team Description 03/14/2022 Refill Specialty Center [address] Sravan Haines MD Refill Gastroenterology [address] [place] [address] [place], [place] [address] [phone] Social History Tobacco Use Types Packs/Day Years Used Date Smoking Tobacco: Former Cigarettes 0.3 15 Quit : 04/25/2015 Smokeless Tobacco: Never Alcohol Use Standard Drinks/Week Comments Yes 1 (1 standard drink = 0.6 oz pure alcoho l) 1-3 drinks a week Sex Assigned at Date Recorded Female 05/09/2021 7:19 PM MEDICAL LABORATORY TECHNOLOGIST documented as of this encounter Nursing Notes Sindy Anderson LPN - 03/14/2022 3:07 PM CDT Last visit- [...] Services 09/15/2022 Telemedicine Gastroenterology Eusebio Haines MD [address] [place], [place] [phone] documented as of this encounter Visit Diagnoses Diagnosis Irritable bowel syndrome, unspecified ty pe documented in this encounter Care Teams Stewardess Supervisor Relationship Specialty Start Date End Date Sheeba Castillo APRN, RADIO COMMENTATOR PCP - General Nurse Practitioner 07/20/[address] [place] [id number] documented as of this encounter
--- OUTSIDE RECORDS SUMMARY | 2022-05-09 19:19 | XMS_ITS | Encounter Summary ---
:1975 Author Organization [employer] Address [address] [place] [address] Care Team Providers Name Role Phone Sheeba Castillo APRN, CNP Primary Care Provider [phone] Reason for Visit Reason Comments Infusion Infusion Therapy Plan (Routine) - Authorized Specialty Diagnoses / Procedures Referred By Contact Refer red To Contact Diagnoses Other ulcerative colitis with rectal bleeding (HRC) Eusebio Haines MD [facility] [address] [place], [place] [address] [place] [address] Phone: Fax: Referral ID Status Reason Start Date Expiration Date Visits V isits Requested Authorized [id number] Authorized 09/04/2019 07/24/2022 [id number] Encounter Details Date Type Department Care Team Description 01/14/2021 Hospital Encounter [facility] Ulcerative colitis with rect al bleeding, unspecified location (HRC) (Primary Dx); [address] Other ulcerative colitis wit h rectal bleeding ([place]) [place] [address] Social History Tobacco Use Types Packs/Day Years Used Date Smoking Tobacco: Former Cigarettes 0.3 15 Quit : 04/25/2015 Smokeless Tobacco: Never Alcohol Use Standard Drinks/Week Comments Yes 1 (1 standard drink = 0.6 oz pure alcoho l) 1-3 drinks a week Sex Assigned at Date Recorded Female 05/09/2021 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
--- OUTSIDE RECORDS SUMMARY | 2022-05-09 19:19 | XMS_ITS | Encounter Summary ---
:1975 Author Organization [employer] Address [address] [place] [address] Care Team Providers Name Role Phone Sheeba Castillo APRN, CNP Primary Care Provider [phone] Reason for Visit Reason Comments Infusion Infusion Therapy Plan (Routine) - Authorized Specialty Diagnoses / Procedures Referred By Contact Refer red To Contact Diagnoses Other ulcerative colitis with rectal bleeding (HRC) Eusebio Haines MD [facility] [address] [place], [place] [address] [place] [address] Phone: Fax: Referral ID Status Reason Start Date Expiration Date Visits V isits Requested Authorized [id number] Authorized 09/04/2019 07/24/2022 [id number] Encounter Details Date Type Department Care Team Description 05/12/2021 Hospital Encounter [facility] Ulcerative colitis with rect al bleeding, unspecified location (HRC) (Primary Dx); [address] Other ulcerative colitis wit h rectal bleeding (HRC) [place] [address] Social History Tobacco Use Types Packs/Day Years Used Date Smoking Tobacco: Former Cigarettes 0.3 15 Quit : 04/25/2015 Smokeless Tobacco: Never Alcohol Use Standard Drinks/Week Comments Yes 1 (1 standard drink = 0.6 oz pure alcoho l) 1-3 drinks a week Sex Assigned at Date Recorded Female 05/09/2021 7:19 PM LENS HARDENER documented as of this encounter Last Filed Vital Signs Vital Sign Reading Time Taken Comments Blood Pressure 148/82 05/12/2021 2:22 PM LENS HARDENER Pulse 78 05/12/2021 2:22 PM LENS HARDENER Temperature 36.8 ??C (98.3 ??F) 05/12/2021 2:22 PM LENS HARDENER Respiratory Rate - - Oxygen Saturation 99% 05/12/2021 2:22 PM LENS HARDENER Inhaled Oxygen Concentration - - Weight 92.9 kg (204 lb 12.8 oz) 05/12/2021 2:22 PM LENS HARDENER Height - - Body Mass Index 33.06 08/23/2020 10:00 AM LENS HARDENER documented in this encounter Medications at Time [...] encounter Progress Notes Nadia Thompson RN - 05/12/2021 2:30 PM CST Is this the first dose: no History of previous infusion reactions? no Premedications: no Patient arrived for entyvio infusion. Vital signs stable. No signs of infection, per telephone note in chart Dr Haines approved patient for infusion. Tolerated infusion well. Discharged in stable condition. Will return to clinic for next infusion as scheduled on 07/07/20. HARDENER documented in this encounter Plan of Treatment Upcoming Encounters Date Type Specialty Care Team Description 05/12/2022 Hospital Encounter Chemo Therapy/Infusion Services 09/15/2022 Telemedicine Gastroenterology Eusebio Haines MD [address] [place], [place] [address] documented as of this encounter Visit Diagnoses Diagnosis Ulcerative colitis with rectal bleeding, unspecified location (HRC) - Primary documented in this encounter Administered Medications Inactive Administered Medications - up to 3 most recent administrations Medication Order MAR Action Action Date Dose Rate Site sodium chloride 0.9% injection Given 05/12/2021 3:21 PM LENS HARDENER 10 m L 10-60 mL 10-60 mL, Intravenous, PRN BEFORE&AFTER MEDICATIONS OR LAB DRAW, Line Patency, Starting on Tamela 05/12/21 at 1427, Until Tamela 05/12/21 at 1726, For 1 day vedolizumab (Entyvio) 300 mg in sodium Started 05/12/2021 2:46 PM LENS HARDENER 300 mg chloride 0.9 % 250 mL infusion 300 mg, Intravenous, Administer over 30 Minutes, ONCE, On Tamela 05/12/21 at 1515, For 1 dose, BIOTHERAPY - Must be given by chemotherapy/biotherapy certified documented in this encounter Care Teams Jewelry Sales Relationship Specialty Start Date End Date Sheeba Castillo, INVERTER AND CLIPPER, SPOTLIGHT OPERATOR PCP - General Nurse Practitioner 07/20/16 [address] [place] [address] documented as of this encounter
--- OUTSIDE RECORDS SUMMARY | 2022-05-09 19:19 | XMS_ITS | Encounter Summary ---
:1975 Author Organization [employer] Address [address], [place] [address] Care Team Providers Name Role Phone Sheeba Castillo APRN, CNP Primary Care Provider [phone] Reason for Visit Reason Comments Infusion Encounter Details Date Type Department Care Team Description 03/11/2021 Hospital Encounter [facility] Other ulcerative [address] [facility] [place] [address] bleeding (HRC) (Primary [phone] Dx) Social History Tobacco Use Types Packs/Day Years Used Date Smoking Tobacco: Former Cigarettes 0.3 15 Quit : 04/25/2015 Smokeless Tobacco: Never Alcohol Use Standard Drinks/Week Comments Yes 1 (1 standard drink = 0.6 oz pure alcoho l) 1-3 drinks a week Sex Assigned at Date Recorded Female 05/09/2021 7:19 PM 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 SUPERVISOR documented as of this encounter Last Filed [...] CDT DX: Ulcerative colitis with rectal bleeding (HRC) Dr Haines Is this the first dose: [...] Services 09/15/2022 Telemedicine Gastroenterology Eusebio Haines MD [address] [place] [address] documented as of this encounter Visit Diagnoses [...] certified documented in this encounter Care Teams Television Picture Tube Rebuilder Relationship Specialty Start Date End Date Sheeba Castillo, INSIDE BARREL LATHE OPERATOR, SALES REPRESENTATIVE GIRLS' APPAREL PCP - General Nurse Practitioner 07/20/16 [address] [address] [place] [address] documented as of this encounter
--- OUTSIDE RECORDS SUMMARY | 2022-05-09 19:19 | XMS_ITS | Encounter Summary ---
:1975 Author Organization [employer] Address [address] [place] [address] Care Team Providers Name Role Phone Sheeba Castillo APRN, CNP Primary Care Provider [phone] Reason for Visit Reason Comments Infusion Encounter Details Date Type Department Care Team Description 09/16/2021 Hospital Encounter [facility] Ulcerative colitis with rect al bleeding, unspecified location (HRC) (Primary Dx); [address] Other ulcerative colitis wit h rectal bleeding (HRC) [place] [address] Social History Tobacco Use Types Packs/Day Years Used Date Smoking Tobacco: Former Cigarettes 0.3 15 Quit : 04/25/2015 Smokeless Tobacco: Never Alcohol Use Standard Drinks/Week Comments Yes 1 (1 standard drink = 0.6 oz pure alcoho l) 1-3 drinks a week Sex Assigned at Date Recorded Female 05/09/2021 7:19 PM AEROSPACE ENGINEER OFFICER ARMAMENT documented as of this encounter Last Filed [...] encounter Progress Notes Nadia Thompson RN - 09/16/2021 3:00 PM CDT Dx: [...] Services 09/15/2022 Telemedicine Gastroenterology Eusebio Haines MD [address] [place], [place] [address] documented as of this encounter Visit Diagnoses [...] certified documented in this encounter Care Teams Prime Broker Relationship Specialty Start Date End Date Sheeba Castillo, WET COTTON FEEDER, SEWAGE DISPOSAL WORKER PCP - General Nurse Practitioner 07/20/16 [address] [place] [place] [address] documented as of this encounter
--- OUTSIDE RECORDS SUMMARY | 2022-05-09 19:19 | XMS_ITS | Encounter Summary ---
:1975 Author Organization [employer] Address [address] [place] [address] Care Team Providers Name Role Phone Sheeba Castillo APRN, CNP Primary Care Provider [phone] Encounter Details Date Type Department Care Team Description 01/28/2021 Notes/Orders [facility] 650Sravan Gaxiola MD Gastroenterology [facility] [address] [place] [address] [place] [address] [phone] Social History Tobacco Use Types Packs/Day Years Used Date Smoking Tobacco: Former Cigarettes 0.3 15 Quit : 04/25/2015 Smokeless Tobacco: Never Alcohol Use Standard Drinks/Week Comments Yes 1 (1 standard drink = 0.6 oz pure alcoho l) 1-3 drinks a week Sex Assigned at Date Recorded Female 05/09/2021 7:19 PM CAMERA TUNING ENGINEER documented as of this encounter Plan of Treatment Upcoming Encounters Date Type Specialty Care Team Description 05/12/2022 Hospital Encounter Chemo Therapy/Infusion Services 09/15/2022 Telemedicine Gastroenterology Eusebio Haines MD [address] [place] [address] documented as of this encounter Visit Diagnoses Not on filedocumented in this encounter Care Teams Kindergarten Assistant Relationship Specialty Start Date End Date Sheeba Castillo, RUDY, QUALITY SYSTEM MANAGER PCP - General Nurse Practitioner 07/20/16 [address] [place] [place] [address] documented as of this encounter
--- OUTSIDE RECORDS SUMMARY | 2022-05-09 19:19 | XMS_ITS | Encounter Summary ---
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 [place], [place] Need for vaccination with 13 -polyvalent pneumococcal conjugate vaccine; [facility] [address] [place] [address] [phone] Social History Tobacco Use Types Packs/Day Years Used Date Smoking Tobacco: Former Cigarettes 0.3 15 Quit : 04/25/2015 Smokeless Tobacco: Never Alcohol Use Standard Drinks/Week Comments Yes 1 (1 standard drink = 0.6 oz pure alcoho l) 1-3 drinks a week Sex Assigned at Date Recorded Female 05/09/2021 7:19 PM BOND BROKER documented as of this encounter Patient Instructions Patient InstructionsVickie Garcia, TEMPLE MEAT CUTTER - 01/28/2021 9:10 AM CDT It was [...] or simply send a message via your [employer] account. Test results are immediately released to [employer] when results are finalized. Please be aware that this means you may be viewing your results before the clinician who ordered the test(s) has seen and interpreted the results. If necessary, the ordering provider will communicate findings to you upon their review. 1. To schedule a colonoscopy: a. Best option: Click here: [email or web address] b. Alternative: Call [phone]. 2. To schedule an upper endoscopy (EGD): a. Online scheduling not available (yet). b. Call [phone]. 3. To schedule GI Clinic follow-up appointment: a. Best option: Click here: [email or web address] b. Alternative: Call [phone]. 4. To schedule a GI Clinic nurse visit (i.e., for vaccination or injection training): a. Call [phone]. 5. To schedule an imaging appointment (ultrasound, CT scan, MRI): a. Call [phone]. 6. To schedule a lab visit: a. Call [phone]. 7. Any questions? Need help? a. Call [phone]. documented in this encounter Progress Notes Eusebio Haines MD - 01/28/2021 9:10 AM CDT GI Clinic Telephone Progress Note Idania Duarte MR# [id number] [facility]# [id number] Date of Visit: 01/28/21 Idania Duarte is [...] was unable to reach the patient via [employer]. Reports that she feels much less stress [...] and oxygen saturations were monitored continuously. The [id number] was introduced through the anus and advanced [...] care. Eusebio Haines MD Gastroenterology and Hepatology BROKER documented in this encounter Plan of Treatment Upcoming Encounters Date Type Specialty Care Team Description 05/12/2022 Hospital Encounter Chemo Therapy/Infusion Services 09/15/2022 Telemedicine Gastroenterology Eusebio Haines MD [address] [place] [address] documented as of this encounter Visit Diagnoses [...] status documented in this encounter Care Teams Optical Effects Line Up Person Relationship Specialty Start Date End Date Sheeba Castillo, CHILDREN'S BOOK AUTHOR, VAT PACKER PCP - General Nurse Practitioner 07/20/[address] [place] [address] documented as of this encounter
--- OUTSIDE RECORDS SUMMARY | 2022-05-09 19:19 | XMS_ITS | Encounter Summary ---
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 Finally, please see if you can get a copy of your recent DEXA scan sent to me so that I may reviewthe results. If you have any questions in the interim, please feel free to message me via your [email or web address] account. Otherwise I will have you set up for a follow-up visit in approximately 6 months. documented in this encounter Progress Notes Eusebio Haines MD - 03/10/2022 9:10 AM CDT GI Clinic Video Progress Note Idania Duarte MR# [id number] [facility]# [id number] Date of Visit: 03/10/22 Idania Duarte is a 46 y.o. female who presents to the Gastroenterology Clinic today via a video visit for a follow-up on chronic left-sided ulcerative colitis on vedolizumab infusions every 8 weeks. Patient reports that she has been doing very well and has no complaints today. Takes hyoscyamine on an as-needed basis for abdominal cramps. Currently scheduled for vedolizumab infusion later today at 11:00 a.m.. Patient completed treatment for breast cancer earlier this year. Scheduled for hysterectomy in the next couple of weeks. Reports that she had a DEXA scan done a few weeks ago at [facility]. Orders for Prevnar 13 and Pneumovax 23 entered from patient's last visit but these appear to have not been completed. 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 PMH: Past Medical History: Diagnosis Date BCC (basal cell carcinoma), leg 08/11/2011 BP (high blood pressure) Chronic headaches 08/11/2011 Clostridium difficile colitis 01/2012 Concussion 08/11/2011 HTN (hypertension) (HRC) 08/11/2011 Hx of tonsillectomy 08/11/2011 Irritable bowel syndrome 11/29/2002 Melanoma Trunk 11/01/2010 Obesity (HR) 08/11/2011 PSH: Past Surgical History: Procedure Laterality Date CYST REMOVAL left wrist LAP CHOLECYSTECTOMY 07/12/2016 TONSILLECTOMY Outpatient Meds: Outpatient Medications Prior to Visit Medication Sig Dispense Refill busPIRone (BUSPAR) 7.5 MG tablet Take 1 Tablet by mouth two times a day. OK to double dose in 2 weeks if needed. 120 Tablet 3 Calcium Carbonate Antacid 1000 MG Take by mouth. Reported on 08/14/2016 cholestyramine (QUESTRAN) 4 GM/DOSE powder MIX 4 GRAMS IN 4-8 OUNCESOF FLUID AND DRINK ONCE DAILY. MAY INCREASE TO TWICE DAILY IF NOT IMPROVING. SEPERATE AT LEAST 2 HOURS FROM OTHER MEDICATIONS. 378 g0 dicyclomine (BENTYL) 20 MG tablet TAKE 1 TABLET BY MOUTH 4 TIMES DAILY NEEDED 360 Tablet 2 hyoscyamine (LEVSIN/SL) 0.[address] 2 Tablets under tongue every 4 hours as needed for Cramping. 60 Tablet 2 Multiple Vitamin (MULTI-VITAMIN OR) Take 1 tablet by mouth daily (every 24 hours). norethindrone-eth estradiol (PIRMELLA ) 1-35 MG-MCG tablet Take 1 Tablet by mouth daily. CONTINOUSLY 112 Tablet 3 triamterene-hydrochlorothiazide (MAXZIDE-25) 37.5-25 MG tablet Take 1 Tablet by mouth daily. 90 Tablet 3 No facility-administered medications prior to visit. Allergies: No Known Allergies Review of Systems: Gen: Denies weakness, fatigue, malaise, unintentional weight loss, fevers, chills. All other systems of a 10 point review of systems negative except as above and per hpi. PE: There were no vitals filed for this visit. GEN: No acute distress, comfortable in appearance Head: normocephalic, atraumatic; sclera anicteric Skin: no obvious rash, no visible skin breakdown, no visible jaundice Neuro: A&Ox3, grossly no focal deficits Psych: [...] Reactive 01/09/2014 No components found for: HEPBCAB Hep C: Lab Results Component Value Date [...] Rate 3 09/27/2001 Imaging: (Past 12 months): DEXA scan done at [facility] (results not readily available for review) within the last fewweeks. GI Procedures: Procedure Date: 08/23/2020 10:45 AM [...] and oxygen saturations were monitored continuously. The [id number] was introduced through the anus and advanced [...] DIAGNOSIS A. Colon, cecum and ascending, biopsy: No diagnostic abnormality B. Colon, transverse, polypectomy: Hyperplastic polyp, multiple levels examined C. Colon, descending, biopsy: No diagnostic abnormality D. Colon, rectosigmoid, biopsy: Colonic mucosa with mild architectural changes suggestive of chronic quiescent colitis E. Colon, transverse, biopsy: No diagnostic abnormality, multiple levels examined Comment: The patient's history of ulcerative colitis is noted. There is no evidence for active colitis, granulomas, or dysplasia. 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 Blood tests ordered today as a part of monitoring the patient's inflammatory bowel disease and its treatment. Blood test will include a vedolizumab trough level. 2.) Irritable bowel syndrome, unspecified type: Continue with this I mean on an as-needed basis. 3.) Need for vaccination for pneumococcus: Order entered for Prevnar 20 to be completed the patient's convenience. 4.) HCM: Asked patient to kindly send me a scanned attachment or faxed copy of her recent DEXA scan. Will discuss value of zoster vaccination at next visit. Patient should also received influenza vaccination once this becomes available for her this season. Pap smears will no longer be needed as a part of her preventative care with upcoming hysterectomy. All questions were answered today to the patient's satisfaction. She verbalized agreement with the plan of care. I spent 40 minutes in this patient's care, 38 minutes spent on counseling, education, coordination of care, history taking, searching the medical record, 2 minutes spent on visual physical examination. Eusebio Haines MD Gastroenterology and Hepatology documented in this encounter Plan of Treatment Upcoming Encounters Date Type Specialty Care Team Description 05/12/2022 Hospital Encounter Chemo Therapy/Infusion Services 09/15/2022 Telemedicine Gastroenterology Eusebio Haines MD [address] [place], [place] [address] documented as of this encounter Results Hepatitis A Antibody, IgG (03/10/2022 10:42 AM CDT) [facility] Method Time Signature Hepatitis A Negative Positive 03/10/2022 [facility] Antibody, IgG (Non (Reactive) 7:19 PM CDT LABORATORY Reactive) Specimen Anatomical Collection Method / Collection Time Recei peña Time (Source) Location / Volume Laterality Blood Venipuncture / 03/10/2022 10:42 2 Unknown AM CDT 10:42 AM CDT Narrative [facility] - 03/10/2022 7:19 P M CDT Hepatitis A IgG antibodies not detected, suggesting lack of immunity to Hepatitis A. Eusebio Haines MD LAB_1 Performing Organization Address City/State/ZIP Code Phon e Number [facility] [place] [address] Creatinine / GFR (03/10/2022 10:42 AM CDT) athologist Signature Creatinine 0.70 0.55 - 03/10/2022 [place] 1.02 mg/dL 12:18 PM CDT LABORATORY GFR, Estimated >60 >60 03/10/2022 [place] mL/min/1.7 12:18 PM CDT LABORATORY 3m2 Specimen Anatomical Collection Method / Collection Time Recei peña Time (Source) Location / Volume Laterality Blood Venipuncture / 03/10/2022 10:42 2 Unknown AM CDT 10:42 AM CDT Eusebio Haines MD LAB_1 Performing Organization Address [facility]/ZIP Code Phon e [facility] LABORATORY [id number] [place] [phone] (ABNORMAL) C-Reactive Protein (03/10/2022 10:42 AM CDT) athologist Signature C-Reactive 1.0 (H) 0.0 - 0.7 03/10/2022 [place] Protein mg/dL 12:18 PM CDT LABORATORY Specimen Anatomical Collection Method / Collection Time Recei peña Time (Source) Location / Volume Laterality Blood Venipuncture / 03/10/2022 10:42 2 Unknown AM CDT 10:42 AM CDT Eusebio Haines MD LAB_1 Performing Organization Address [facility] Phon e [facility] LABORATORY [address] [place] [phone] WBC, Blood (03/10/2022 10:42 AM CDT) athologist Signature WBC 6.4 3.5 - 10.5 03/10/2022 [place] x10(9)/L 10:48 AM CDT LABORATORY Specimen Anatomical Collection Method / Collection Time Recei peña Time (Source) Location / Volume Laterality Blood Venipuncture / 03/10/2022 10:42 2 Unknown AM CDT 10:42 AM CDT Eusebio Haines MD LAB_1 Performing Organization Address [facility]/ZIP Code Phon e [facility] LABORATORY [address] [place] [address] Hemoglobin (03/10/2022 10:42 AM CDT) P athologist Signature Hemoglobin 13.9 12.0 - 15.5 03/10/2022 [place] g/dL 10:48 AM CDT LABORATORY Specimen Anatomical Collection Method / Collection Time Recei peña Time (Source) Location / Volume Laterality Blood Venipuncture / 03/10/2022 10:42 2 Unknown AM CDT 10:42 AM CDT Eusebio Haines MD LAB_1 Performing Organization Address City/[facility] Code Phon e Number [facility] [address] [place] [address] Vedolizumab Quantitation with Reflex to Antibodies (03/10/2022 10:42 AM CDT) athologist Signature Vedolizumab 19.7 mcg/mL 03/14/[address] [facility] 2:15 PM CDT LAB Comment: For concentrations of vedolizumab less t palacio or equal to 15.0 mcg/mL, reflex testing for antibodi [id number] will be performed. REFERENCE VALUE------ Lower limit of quantitation = 2.0 mcg/mL ADDITIONAL INFORMATIO N This test was developed and its performa nce characteristics determined by [facility] in a manner co nsistent with CLIA requirements. This test has not been nicho ared or approved by the U.S. Food and Drug Administration. Test Performed by: [facility] [address] [place], [place] [address] Geek Squad Manager: Sergio Ashby M.D. Ph. D.; CLIA# [id number] Specimen Anatomical Collection Method / Collection Time Recei peña Time (Source) Location / Volume Laterality Blood Venipuncture / 03/10/2022 10:42 2 Unknown AM CDT 10:42 AM CDT Eusebio Haines MD LAB_1 Performing Organization Address City/State/ZIP Code Phon e Number [facility] [place] [address] Bilirubin, Total (03/10/2022 10:42 AM CDT) P athologist Signature Bilirubin, 0.4 0.2 - 1.2 03/10/2022 [place] Total mg/dL 12:18 PM CDT LABORATORY Specimen Anatomical Collection Method / Collection Time Recei peña Time (Source) Location / Volume Laterality Blood Venipuncture / 03/10/2022 10:42 2 Unknown AM CDT 10:42 AM CDT Eusebio Haines MD LAB_1 Performing Organization Address City/[facility]/ZIP Code Phon e Number [facility] [address] [place] [address] Alkaline Phosphatase Isoenzymes (03/10/2022 [...] Specific Alkaline Phosphatase (0070 053) and 5'-nucleotidase (0424867) may be useful in identifying d isorders of bone and liver, respectively. Alkaline Phosphatase, Other 0 U/L 03/14/2022 1 0:45 PM CDT [facility] Comment: Performed By: [facility] [employer] [address] [place] [address] Geophysical Prospector: Jorge Matos MD, PhD Specimen Anatomical Collection Method / Collection Time Recei peña Time (Source) Location / Volume Laterality Blood Venipuncture / 03/10/2022 10:42 2 Unknown AM CDT 10:42 AM CDT Eusebio Haines MD LAB_1 Performing Organization Address City/[facility]/ZIP Code Phon e Number [facility] [address] [place], [place] [phone] ALT (SGPT) (03/10/2022 10:42 AM CDT) P athologist Signature ALT (SGPT) 21 0 - 55 U/L 03/10/2022 [place] 12:18 PM CDT LABORATORY Specimen Anatomical Collection Method / Collection Time Recei peña Time (Source) Location / Volume Laterality Blood Venipuncture / 03/10/2022 10:42 2 Unknown AM CDT 10:42 AM CDT Eusebio Haines MD LAB_1 Performing Organization Address City/State/ZIP Code Phon e Number [facility] [address] [place] [address] documented in this encounter [...] vedolizumab documented in this encounter Care Teams Binder And Wrapper Packer Relationship Specialty Start Date End Date Sheeba Castillo, CONTRACTING EXECUTIVE, AGRICULTURAL REAL ESTATE AGENT PCP - General Nurse Practitioner 07/20/16 [address] [place] [address] documented as of this encounter
--- OUTSIDE RECORDS SUMMARY | 2022-05-09 19:19 | XMS_ITS | Encounter Summary ---
:1975 Author Organization [facility] [employer] Address [address] [place] [address] Care Team Providers Name Role Phone Sheeba Castillo APRN, SIERRA Primary Care Provider [phone] Reason for Visit Reason Comments IV,THERAPY Encounter Details Date Type Department Care Team Description 09/13/2021 Telephone Specialty Center [address] Sravan Haines MD IV,THERAPY Gastroenterology [address] 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 Nanda Ceja RPh - 09/13/2021 9:09 AM CDT Idania Duarte???s [...] Services 09/15/2022 Telemedicine Gastroenterology Eusebio Haines MD [address] [place], [place] [address] documented as of this encounter Visit Diagnoses Not on filedocumented in this encounter Care Teams Meat Passer Relationship Specialty Start Date End Date Sheeba Castillo, AUTOMATION ANALYST, MANAGER STRATEGIC SOURCING PCP - General Nurse Practitioner 07/20/16 [address] [place] [address] documented as of this encounter
--- OUTSIDE RECORDS SUMMARY | 2022-05-09 19:19 | XMS_ITS | Encounter Summary ---
:1975 Author Organization [facility] Address [address] [place] [address] Care Team Providers Name Role Phone Sheeba Castillo APRN, CNP Primary Care Provider [phone] Reason for Visit Reason Comments UPDATE Encounter Details Date Type Department Care Team Description 09/07/2021 Telephone Specialty Center [place] Sravan Haines MD UPDATE Gastroenterology [address] 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 From my standpoint, it appears okay for the patient to resume her vedolizumab infusions for ongoing treatment of her inflammatory bowel disease. I will message the patient and let her know as well, viaher [employer] account. Eusebio Haines MD - 09/08/2021 5:08 PM CDT Sent a message to the patient via her [employer] account acknowledging the message from Oralia regarding the end of the patient's chemotherapy for breast cancer. Multiple questions posed to the patient in my [employer] message to her. Awaiting to hear her response. Dayana Jauregui RN - 09/07/2021 11:39 AM CDT Oralia calling from [facility] where pt has been being treated for [...] Any questions you can call Oralia at [phone]. Further recommendations? documented in this encounter Plan of Treatment Upcoming Encounters Date Type Specialty Care Team Description 05/12/2022 Hospital Encounter Chemo Therapy/Infusion Services 09/15/2022 Telemedicine Gastroenterology Eusebio Haines MD [address] [place] [address] documented as of this encounter Visit Diagnoses Not on filedocumented in this encounter Care Teams Steam Drier Operator Relationship Specialty Start Date End Date Sheeba Castillo, TRAIN ELECTRONIC TECHNICIAN, MORTGAGE BROKER PCP - General Nurse Practitioner 07/20/16 [address] [place] [address] documented as of this encounter
--- OUTSIDE RECORDS SUMMARY | 2022-05-09 19:20 | XMS_ITS | Encounter Summary ---
:1975 Author Organization [employer] Address [address] [place] [address] Care Team Providers Name Role Phone Sheeba Castillo APRN, SIERRA Primary Care Provider [phone] Reason for Visit Reason Comments Appt. Needed Encounter Details Date Type Department Care Team Description 03/26/2020 Telephone Specialty Center Sravan Turner MD Appt. Needed Gastroenterology [address] 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 Haines documented in this encounter Plan of Treatment Upcoming Encounters Date Type Specialty Care Team Description 05/12/2022 Hospital Encounter Chemo Therapy/Infusion Services 09/15/2022 Telemedicine Gastroenterology Eusebio Haines MD [address] [place], [place] [address] documented as of this encounter Visit Diagnoses Not on filedocumented in this encounter Care Teams Electronic Communications Technician Relationship Specialty Start Date End Date Sheeba Castillo, METAL DRILL PRESS OPERATOR, TIMBER TRIMMER PCP - General Nurse Practitioner 07/20/16 [address] [place] [address] documented as of this encounter
--- OUTSIDE RECORDS SUMMARY | 2022-05-09 19:20 | XMS_ITS | Encounter Summary ---
:1975 Author Organization [facility] Address [address] [place] [address] Care Team Providers Name Role Phone Sheeba Castillo APRN, SIERRA Primary Care Provider [phone] Encounter Details Date Type Department Care Team Description 04/21/2020 Notes/Orders [facility] Eusebio Stuart MD Irritable bowel syndrome, unspecified ty pe (Primary Dx); [facility] [address] [facility] Chronic ulcerative proctitis with rectal bleeding (HRC) [address] 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 documented as of this encounter Plan of Treatment Upcoming Encounters Date Type Specialty Care Team Description 05/12/2022 Hospital Encounter Chemo Therapy/Infusion Services 09/15/2022 Telemedicine Gastroenterology Eusebio Haines MD [address] [place] [address] documented as of this encounter Visit Diagnoses Diagnosis Irritable bowel syndrome, unspecified ty pe - Primary Chronic ulcerative proctitis with rectal bleeding (HRC) Ulcerative (chronic) proctitis documented in this encounter Care Teams Gas Turbine Mechanic Relationship Specialty Start Date End Date Sheeba Castillo, RECORD CHANGER, TURBINE ROOM ATTENDANT PCP - General Nurse Practitioner 07/20/[address] [place] [address] documented as of this encounter
--- OUTSIDE RECORDS SUMMARY | 2022-05-09 19:20 | XMS_ITS | Encounter Summary ---
:1975 Author Organization [facility] Address [address] [place] [address] Care Team Providers Name Role Phone Sheeba Castillo APRN, SIERRA Primary Care Provider [phone] Reason for Visit Reason Comments QUESTIONS, GENERAL Encounter Details Date Type Department Care Team Description 06/29/2020 Telephone Specialty Center [address] Sravan Haines MD QUESTIONS, GENERAL Gastroenterology [address] [place] [address] [phone] Social History Tobacco Use Types Packs/Day Years Used Date Smoking Tobacco: Former Cigarettes 0.3 15 Quit : 04/25/2015 Smokeless Tobacco: Never Alcohol Use Standard Drinks/Week Comments Yes 1 (1 standard drink = 0.6 oz pure alcoho l) 1-3 drinks a week Sex Assigned at Date Recorded Female 05/09/2021 7:19 PM NUCLEAR EQUIPMENT OPERATOR documented as of this encounter Nursing Notes Marti Pandya RN - 06/29/2020 4:16 PM CST Received call from pt. Requesting ALEKS and supporting documents be sent to [facility] as she is going to change infusion centers but not providers. However the infusion center will do anew PA and is in need of records. Records faxed to . EAR EQUIPMENT OPERATOR documented in this encounter Plan of Treatment Upcoming Encounters Date Type Specialty Care Team Description 05/12/2022 Hospital Encounter Chemo Therapy/Infusion Services 09/15/2022 Telemedicine Gastroenterology Eusebio Haines MD [address] [place], [place] [address] documented as of this encounter Visit Diagnoses Not on filedocumented in this encounter Care Teams Machine Operations Supervisor Relationship Specialty Start Date End Date Sheeba Castillo APRN, KNOTTER HAND PCP - General Nurse Practitioner 07/20/16 [address] [place] [address] documented as of this encounter
--- OUTSIDE RECORDS SUMMARY | 2022-05-09 19:20 | XMS_ITS | Encounter Summary ---
:1975 Author Organization [employer] Address [address], [place] [address] Care Team Providers Name Role Phone Sheeba Castillo APRN, CNP Primary Care Provider [phone] Reason for Referral (Routine) - Closed Specialty Diagnoses / Procedures Referred By Contact Refer red To Contact Diagnoses Left sided colitis with rectal bleeding (HRC) Eusebio Haines MD Procedures Endoscopy, colon, diagnostic [address] [place], [place] [address] Referral ID Status Reason Start Date Expiration Date Visits Requ ested Visits Authorized [id number] Closed 08/02/2020 11/01/2021 1 1 HNUT MAKER Reason for Visit (Routine) - Closed Specialty Diagnoses / Procedures Referred By Contact Refer red To Contact Diagnoses Left sided colitis with rectal bleeding (HRC) Eusebio Haines MD Procedures Endoscopy, colon, diagnostic [address] [place], [place] [address] Referral ID Status Reason Start Date Expiration Date Visits Requ ested Visits Authorized [id number] Closed 08/02/2020 11/01/2021 1 1 Encounter Details Date Type Department Care Team Description 08/23/2020 [facility] Мария Left sided colitis Encounter Gastroenterology MD Chrissy with rectal Endoscopy Procedures [address] bleeding (HRC) [address] [facility] [address] [place] [address] [place] [address] Social History Tobacco Use Types Packs/Day Years Used Date Smoking Tobacco: Former Cigarettes 0.3 15 Quit : 04/25/2015 Smokeless Tobacco: Never Alcohol Use Standard Drinks/Week Comments Yes 1 (1 standard drink = 0.6 oz pure alcoho l) 1-3 drinks a week Sex Assigned at Date Recorded Female 05/09/2021 7:19 PM DOUGHNUT MAKER documented as of this encounter Last Filed Vital Signs Vital Sign Reading Time Taken Comments Blood Pressure 109/71 08/23/2020 11:41 AM DOUGHNUT MAKER Pulse 86 08/23/2020 11:41 AM DOUGHNUT MAKER Temperature - - Respiratory Rate 16 08/23/2020 11:41 AM DOUGHNUT MAKER Oxygen Saturation 100% 08/23/2020 11:41 AM DOUGHNUT MAKER Inhaled Oxygen Concentration - - Weight 84.8 kg (187 lb) 08/23/2020 10:00 AM DOUGHNUT MAKER Height 167.6 cm (5' 6) 08/23/2020 10:00 AM DOUGHNUT MAKER Body Mass Index 30.18 08/23/2020 10:00 AM DOUGHNUT MAKER documented in this encounter Medications at Time [...] protocol.Medications given intermittently for discomfort.Patient tolerated procedure. HNUT MAKER Lenora Schaffer RN - 08/23/2020 10:30 AM CST Patient alert, oriented. Denies pain at this time. Tolerating liquids. Discussed discharge teaching.Patient/family given handouts. Verbalized understanding. HNUT MAKER documented in this encounter Procedure Notes Мария Ramsussen MD - 08/23/2020 10:45 AM CST Patient [...] and oxygen saturations were monitored continuously. The CF-[id number] was introduced through the anus and advanced [...] GI clinic. Procedure Code(s): --- Professional --- 08406, Colonoscopy, flexible; with removal of tumor(s), polyp(s), or other lesion(s) by snare technique 03598, 59, Colonoscopy, flexible; with biopsy, single or multiple 93505, Moderate sedation; each additional 15 minutes intraservice time G0500, Moderate sedation services provided by the same physician or other qualified health home care coordinator performing a gastrointestinal endoscopic service that sedation supports, requiring the presence of an independent trained observer to assist in the monitoring of the patient's level of consciousness and physiological status; initial 15 minutes of intra-service time; patient age 5 years or older (additional time may be reported with 63005, as appropriate) Diagnosis Code(s): --- Professional --- K63.5, Polyp of colon K51.40, Inflammatory polyps of colon without complications K51.50, Left sided colitis without complications CPT copyright 2019 [employer]. All rights reserved. The codes documented in this report are preliminary and upon global marketing coordinator review may be revised to meet current compliance requirements. Мария Rasmussen MD 08/23/2020 11:18:43 AM This document has been electronically signed. Number of Addenda: 0 Note Initiated On: 08/23/2020 10:45 AM Endoscopy Report HNUT MAKER documented in this encounter Plan of Treatment Upcoming Encounters Date Type Specialty Care Team Description 05/12/2022 Hospital Encounter Chemo Therapy/Infusion Services 09/15/2022 Telemedicine Gastroenterology Eusebio Haines MD [address] [place] [address] documented as of this encounter Procedures Procedure Name Priority Date/Time Associated Diagnosis Comme nts SURGICAL PATHOLOGY, Routine 08/23/2020 11:16 AM Left sided col itis Results for this GI DOUGHNUT MAKER with rectal bleeding procedu re are in (HR) the results section. ENDOSCOPY, COLON, Routine 08/23/2020 10:45 AM Left sided colit is Results for this SCREENING/DIAGNOSTI DOUGHNUT MAKER with rectal bleeding procedure are in C (HRC) the results section. TEST STAT 08/23/2020 9:48 AM Results for this (URINE) DOUGHNUT MAKER procedure are i n the results section. documented in this encounter Results Surgical Path - GI (08/23/2020 11:16 AM DOUGHNUT MAKER) Component Value Ref Test Analysis Performed At [facility] gist Range Method Time Signature Case Report Surgical Pathology ?Case: [id number] ? 08/25/2020 [facility] Authorizing Provider: ??Мария Mathias MD ? Collected: ? 08/23/2020 1116 ? 1:39 PM LABORAT OR Ordering Location: ? [facility] ? Received: ?08/23/2020 1239 ? DOUGHNUT MAKER ? Gastroenterology Endoscopy ? Procedures ? Pathologist: ? Soupir, Emir P, MD ? Specimens: ?? A) - Colon, ce cum, ??ascending ? B) - Eden n, transverse ? C) - Eden n, descending ? D) - Eden n, rectosigmoid ? E) - Eden n, transverse ? FINAL A. Colon, cecum and ascending, biopsy: 0 08/25/2020 [facility] Electronically DIAGNOSIS No diagnostic abnormality 1:39 PM LABO RATORY signed by DOUGHNUT MAKER Rhonda Guerin, B. Colon, transverse, polypectomy: on 08/25/2020 Hyperplastic [...] colitis, granulomas, or dysplasia. Clinical Polyp 08/25/2020 [facility] Information Hx Ulcerative Colitis 1:39 PM LABORA TORJacqueline DOUGHNUT MAKER Microscopic Microscopic 08/25/2020 [facility] Description examination is 1:39 PM LABORATORY performed. DOUGHNUT MAKER Gross A: 08/25/2020 [facility] Description The specimen is received in formalin and labeled with the patient's name and Colon, cecum, ascending. The specimen consists of multiple dawn-white irregular soft tissue fragments, averaging 0.2 cm. The 1:39 PM LABORATORY specimen is filtered and entirely submitted in one cassette . DOUGHNUT MAKER B: The specimen is received in formalin [...] submitted in one cassette. AW Embedded 08/25/2020 [facility] Images 1:39 PM LABORATORY DOUGHNUT MAKER Specimen Anatomical Location Collection Method Collection Time Received Time (Source) / Laterality / Volume Tissue COLON STRUCTURE / 08/23/2020 11:16 2020 Unknown AM DOUGHNUT MAKER 12:39 PM DOUGHNUT MAKER Tissue specimen COLON STRUCTURE / 08/23/2020 11:16 06/2020 (specimen) Unknown AM DOUGHNUT MAKER 12:39 PM DOUGHNUT MAKER Tissue specimen COLON STRUCTURE / 08/23/2020 11:16 06/2020 (specimen) Unknown AM DOUGHNUT MAKER 12:39 PM DOUGHNUT MAKER Tissue specimen RECTOSIGMOID 08/23/2020 11:16 08/24/19 (specimen) STRUCTURE / Unknown AM DOUGHNUT MAKER 12:39 PM DOUGHNUT MAKER Tissue specimen COLON STRUCTURE / 08/23/2020 11:16 06/2020 (specimen) Unknown AM DOUGHNUT MAKER 12:39 PM DOUGHNUT MAKER Мария Rasmussen MD LAB PATHOLOGY Performing Organization Address City/State/ZIP Code Phon e Number [facility] [address] [place] [address] Endoscopy, colon, diagnostic (08/23/2020 10:45 AM DOUGHNUT MAKER) Specimen (Source) Anatomical Collection Method Collection Time Re ceived Time Location / / Volume Laterality 08/23/2020 10:45 AM DOUGHNUT MAKER Narrative [facility] ([facility]) - 08/23/2020 10:45 AM DOUGHNUT MAKER Patient Name: Idania Duarte Procedure Date: 08/23/2020 [...] Procedure: ? Pre-Anesthesia Assessment: ? - The hi mcgill statement was ? reviewed with the patient [...] was passed under direct ? vision. T oughout the procedure, the ? patient's blood pressure, pulse, and ? oxygen sa turations were monitored ? continuou sljacqueline. The -[id number] was ? introduce d through the anus [...] Code(s): ?? --- Professional - -- ? 71591, Co lonoscopy, flexible; with ? removal o f tumor(s), polyp(s), or ? other les ion(s) by snare technique ? 83709, 59 , Colonoscopy, flexible; ? with biop sy, single or multiple ? 28712, Mo derate sedation; each ? additiona l 15 minutes intraservice ? time ? G0500, Mo derate sedation services ? provided by the same physician or ? other [facility] care ? professio nal performing [...] time may ? be [place] with [address], as ? appropria te) Diagnosis Code(s): ?? --- Professional - -- ? K63.5, Po lyp of colon ? K51.40, I nflammatory polyps of colon ? without c omplications ? K51.50, L eft sided colitis without ? complicat ions CPT copyright 2019 [employer]. All rights reserved. The codes documented in this report are preliminary and upon global marketing coordinator review may be revised to meet current [...] and oxygen saturations were monitored continuously. The CF-[id number] was introduced through the anus and advanced [...] colon and rectosigmoid colon were sent to [facility] ricardo. The exam was otherwise without abnormal ity [...] retroflexion views. Recommendation: - Discharge patient to [facility]. - Await pathology results. - Repeat colonoscopy for surveillance based on pathology results. - Return to GI clinic. Procedure Code(s): --- Professional --- 71364, Colonoscopy, flexible; with removal of tumor(s), polyp(s), or other lesion(s) by snare technique 77991, 59, Colonoscopy, flexible; with biopsy, single or multiple 26236, Moderate sedation; each additional 15 minutes intraservice time G0500, Moderate sedation services provided by the same physician or other qualified health home care coordinator performing a gastrointestinal endoscopic service that sedation supports, requiring the presence of an independent trained observer to assist in the monitoring of the patient's level of consciousness and physiological status; initial 15 minutes of intra-service time; patient age 5 years or older (additional time may be reported with 25892, as appropriate) Diagnosis Code(s): --- Professional --- K63.5, Polyp of colon K51.40, Inflammatory polyps of colon without complications K51.50, Left sided colitis without complications CPT copyright 2019 [employer]. All rights reserved. The codes documented in this report are preliminary and upon global marketing coordinator review may be revised to meet current compliance requirements. Мария Rasmussen MD 08/23/2020 11:18:43 AM This document has been electronically si gned. Number of Addenda: 0 Note Initiated On: 08/23/2020 10:45 AM Endoscopy Report Eusebio Haines MD PN GI PROCEDURE ORDERABLES Performing Organization Address City/State/ZIP Code Phon e Number [facility] ([facility]) [facility] ([facility]) [place], [place] Test Screen Urine (08/23/2020 9:48 AM DOUGHNUT MAKER) athologist Signature HCG, Urine Negative Negative 08/23/2020 [facility] 9:55 AM DOUGHNUT MAKER LABORATORY Specimen Anatomical Collection Method Collection Time Receive d Time (Source) Location / / Volume Laterality Urine Non-blood 08/23/2020 9:48 AM 9:48 Collection / DOUGHNUT MAKER AM DOUGHNUT MAKER Unknown Мария Rasmussen MD LAB_1 Performing Organization Address City/State/ZIP Code Phon e Number [facility] [address] [place] [address] documented in this encounter Visit Diagnoses Diagnosis Left sided colitis with rectal bleeding (HRC) Left sided ulcerative (chronic) colitis documented in this encounter Administered Medications Inactive Administered Medications - up to 3 most recent administrations Medication Order MAR Action Action Date Dose Rate Site fentaNYL (SUBLIMAZE) injection Given 08/23/2020 11:19 AM DOUGHNUT MAKER 125 mcg 25-100 mcg 25-100 mcg, Intravenous, PRN, Pain, moderate sedation, Starting on Sun08/23/20 at 0912, Until Sun09/13/20 at 0203, Administer in 25-100 mcg increments as directed by endoscopy procedure MD up to a total of 200 mcg. midazolam (VERSED) injection 0.5-2 mg Given 08/23/2020 11:20 AM DOUGHNUT MAKER 6 mg 0.5-2 mg, Intravenous, PRN, Sedation, Starting on Sun08/23/20 at 0912, Until Sun09/13/20 at 0203, Administer in 0.5 - 2 mg increments as directed by endoscopy procedure MD up to a total of 6 mg sodium chloride 0.9% injection 10-60 mL Given 08/23/2020 11:20 AM DOUGHNUT MAKER 10 mL 10-60 mL, Intravenous, PRN, Line [...] Guide. documented in this encounter Care Teams Automotive Dismantler Relationship Specialty Start Date End Date Sheeba Castillo, INVESTMENT OFFICER, RETAIL SERVICE SPECIALIST PCP - General Nurse Practitioner 07/20/16 [address] [place] [address] documented as of this encounter
--- OUTSIDE RECORDS SUMMARY | 2022-05-09 19:20 | XMS_ITS | Encounter Summary ---
:1975 Author Organization [facility] Address [address] [place] [address] Care Team Providers Name Role Phone Sheeba Castillo APRN, SIERRA Primary Care Provider [phone] Encounter Details Date Type Department Care Team Description 08/20/2020 Lab Visit [facility] Laboratory Preop examination [address] [place] [address] Social History Tobacco Use Types Packs/Day Years Used Date Smoking Tobacco: Former Cigarettes 0.3 15 Quit : 04/25/2015 Smokeless Tobacco: Never Alcohol Use Standard Drinks/Week Comments Yes 1 (1 standard drink = 0.6 oz pure alcoho l) 1-3 drinks a week Sex Assigned at Date Recorded Female 05/09/2021 7:19 PM TAKER AWAY documented as of this encounter Plan of Treatment Upcoming Encounters Date Type Specialty Care Team Description 05/12/2022 Hospital Encounter Chemo Therapy/Infusion Services 09/15/2022 Telemedicine Gastroenterology Eusebio Haines MD [address] [place], [place] [address] documented as of this encounter Procedures Procedure Name Priority Date/Time Associated Diagnosis Comme nts 2019 NOVEL Routine 08/20/2020 4:06 PM Preop examination Resu lts for this CORONAVIRUS TAKER AWAY procedure are i n the results section. documented in this encounter Results Asymptomatic - 2019 Novel Coronavirus (COVID-19) (08/20/2020 4:06 PM TAKER AWAY) [facility] Method Time Signature COVID-19 Not Not 08/21/2020 [facility] Interpretation Detected Detected 5:42 AM CENTRAL LAB TAKER AWAY Specimen Anatomical Collection Method Collection Time Receive d Time (Source) Location / / Volume Laterality Swab (Source Non-blood 08/20/2020 4:06 PM 4:13 Required) Collection / TAKER AWAY PM TAKER AWAY Unknown Narrative [facility] - 08/21/2020 5:42 AM TAKER AWAY Test performed by Senior Games Technician Mediated Amplification. TMA has been shown to be equivalent to commercial real-time PCR t ests. This test has been authorized by the FDA under an Emergency Use Authorization (EUA) for use by authorized laboratories. Prakash Fitzgerald MD LAB_1 Performing Organization Address City/State/ZIP Code Phon e Number [facility] [address] [id number] documented in this encounter Visit Diagnoses Diagnosis Preop examination Preoperative examination, unspecified documented in this encounter Care Teams Antique Dealer Relationship Specialty Start Date End Date Sheeba Castillo, OPTICAL GLASS WET INSPECTOR, MANUFACTURING HELPER PCP - General Nurse Practitioner 07/20/16 [address] [place] [address] documented as of this encounter
--- OUTSIDE RECORDS SUMMARY | 2022-05-09 19:20 | XMS_ITS | Encounter Summary ---
:1975 Author Organization [employer] Address [address], [place] [address] Care Team Providers Name Role Phone Sheeba Castillo APRN, SIERRA Primary Care Provider [phone] Reason for Visit Reason Comments Annual Exam Encounter Details Date Type Department Care Team Description 02/27/2020 Office Visit [place] Contact Niesha Roque Myopia of both eyes Lens [address] (Primary Dx) [address] [place] [address] [place], [place] [phone] [id number] Social History Tobacco Use Types Packs/Day Years Used Date Smoking Tobacco: Former Cigarettes 0.3 15 Quit : 04/25/2015 Smokeless Tobacco: Never Alcohol Use Standard Drinks/Week Comments Yes 1 (1 standard drink = 0.6 oz pure alcoho l) 1-3 drinks a week Sex Assigned at Date Recorded Female 05/09/2021 7:19 PM MANAGER FLEET documented as of this encounter Patient Instructions Patient InstructionsLucero Roque - 02/27/2020 3:00 PM CDT Order trials, call when in documented in this encounter Plan of Treatment Upcoming Encounters Date Type Specialty Care Team Description 05/12/2022 Hospital Encounter Chemo Therapy/Infusion Services 09/15/2022 Telemedicine Gastroenterology Eusebio Haines MD [address] [place] [address] documented as of this encounter Visit Diagnoses Diagnosis Myopia of both eyes - Primary Myopia documented in this encounter Care Teams Tool Honing Machine Set Up Operator Relationship Specialty Start Date End Date Sheeba Castillo, INTERNET SALES CONSULTANT, HARVESTING CONTRACTOR PCP - General Nurse Practitioner 07/20/16 [address] [place] [id number] documented as of this encounter
--- OUTSIDE RECORDS SUMMARY | 2022-05-09 19:20 | XMS_ITS | Encounter Summary ---
:1975 Author Organization [employer] Address [address], [place] [address] Care Team Providers Name Role Phone Sheeba Castillo APRN, CNP Primary Care Provider [phone] Reason for Referral (Routine) - Closed Specialty Diagnoses / Procedures Referred By Contact Refer red To Contact Diagnoses Left sided colitis with rectal bleeding (HRC) Eusebio Haines MD Procedures Endoscopy, colon, diagnostic [address] [place], [place] [address] Referral ID Status Reason Start Date Expiration Date Visits Requ ested Visits Authorized [id number] Closed 08/02/2020 11/01/2021 1 1 INSPECTOR Reason for Visit Reason Comments Colonoscopy Encounter Details Date Type Department Care Team Description 07/30/2020 Telephone Specialty [facility] Sravan Turner MD Colonoscopy Gastroenterology [address] [facility] [address] [place] [address] [place] [address] [phone] Social History Tobacco Use Types Packs/Day Years Used Date Smoking Tobacco: Former Cigarettes 0.3 15 Quit : 04/25/2015 Smokeless Tobacco: Never Alcohol Use Standard Drinks/Week Comments Yes 1 (1 standard drink = 0.6 oz pure alcoho l) 1-3 drinks a week Sex Assigned at Date Recorded Female 05/09/2021 7:19 PM TYPE INSPECTOR documented as of this encounter Nursing Notes Eusebio Haines MD - 08/02/2020 3:30 PM CST Yes, patient is indeed due for a colonoscopy but this is more for diagnostic purposes and a follow-up on her known ulcerative colitis after a significant change in treatment. Order for colonoscopy withmoderate sedation entered and signed in [facility]. Please arrange for the patient [...] order for colonoscopy with propofol sedation. Thanks. INSPECTOR documented in this encounter Plan of Treatment Upcoming Encounters Date Type Specialty Care Team Description 05/12/2022 Hospital Encounter Chemo Therapy/Infusion Services 09/15/2022 Telemedicine Gastroenterology Eusebio Haines MD [address] [place] [address] documented as of this encounter Results Endoscopy, colon, diagnostic (08/23/2020 10:45 AM TYPE INSPECTOR) Specimen (Source) Anatomical Collection Method Collection Time Re ceived Time Location / / Volume Laterality 08/23/2020 10:45 AM TYPE INSPECTOR Narrative [facility] ([facility]) - 08/23/2020 10:45 AM TYPE INSPECTOR Patient Name: Idania Duarte Procedure Date: 08/23/2020 [...] colitis Providers: ? Мария Lao MD, Marni Trivedi MD: ?Eusebio Haines Medicines: ? Midazolam 6 mg IV, Fentanyl 125 ? microgram s IV Complications: ? No immediate com plications. Procedure: ? Pre-Anesthesia Assessment: ? - The fol loydaing statement was ? reviewed with the patient [...] turations were monitored ? continuou sly. The CF-[id number] was ? introduce d through the anus [...] Code(s): ?? --- Professional - -- ? 55758, Co lonoscopy, flexible; with ? removal o f tumor(s), polyp(s), or ? other les ion(s) by snare technique ? 15990, 59 , Colonoscopy, flexible; ? with biop sy, single or multiple ? 00250, Mo derate sedation; each ? additiona l 15 minutes intraservice ? time ? G0500, Mo derate sedation services ? provided by the same physician or ? other [facility] care ? professio nal performing a ? [...] time may ? be report ed with [address], as ? appropria te) Diagnosis Code(s): ?? --- Professional - -- ? K63.5, Po lyp of colon ? K51.40, I nflammatory polyps of colon ? without c omplications ? K51.50, L eft sided colitis without ? complicat ions CPT copyright 2019 [employer]. All rights reserved. The codes documented in this report are preliminary and upon skiver uppers or linings review may be revised to meet current [...] of left-sided chronic ulcerative colitis Providers: Мария Rasmussne MD, Marni Smith Referring MD: Eusebio Haines [...] and oxygen saturations were monitored continuously. The CF-[id number] was introduced through the anus and advanced [...] colon and rectosigmoid colon were sent to [facility]. The exam was otherwise without abnormal ity [...] retroflexion views. Recommendation: - Discharge patient to [facility]. - Await pathology results. - Repeat colonoscopy for surveillance based on pathology results. - Return to GI clinic. Procedure Code(s): --- Professional --- 73513, Colonoscopy, flexible; with removal of tumor(s), polyp(s), or other lesion(s) by snare technique 09443, 59, Colonoscopy, flexible; with biopsy, single or multiple 95077, Moderate sedation; each additional 15 minutes intraservice time G0500, Moderate sedation services provided by the same physician or other qualified health career services manager performing a gastrointestinal endoscopic service that sedation supports, requiring the presence of an independent trained observer to assist in the monitoring of the patient's level of consciousness and physiological status; initial 15 minutes of intra-service time; patient age 5 years or older (additional time may be reported with 58922, as appropriate) Diagnosis Code(s): --- Professional --- K63.5, Polyp of colon K51.40, Inflammatory polyps of colon without complications K51.50, Left sided colitis without complications CPT copyright 2019 [employer]. All rights reserved. The codes documented in this report are preliminary and upon skiver uppers or linings review may be revised to meet current compliance requirements. Мария Rasmussen MD 08/23/2020 11:18:43 AM This document has been electronically si gned. Number of Addenda: 0 Note Initiated On: 08/23/2020 10:45 AM Endoscopy Report Eusebio Haines MD PN GI PROCEDURE ORDERABLES Performing Organization Address City/State/ZIP Code Phon e Number [facility] ([facility]) [facility] ([facility]) [place], [place] documented in this encounter Visit Diagnoses Diagnosis Left sided colitis with rectal bleeding (HRC) - Primary Left sided ulcerative (chronic) colitis Left sided colitis with rectal bleeding (HRC) Left sided ulcerative (chronic) colitis documented in this encounter Care Teams Shirt Cleaner Relationship Specialty Start Date End Date Sheeba Castillo, KICKING MACHINE OPERATOR, NET MAKING SUPERVISOR PCP - General Nurse Practitioner 07/20/16 [address] [place] [address] documented as of this encounter
--- OUTSIDE RECORDS SUMMARY | 2022-05-09 19:20 | XMS_ITS | Encounter Summary ---
:1975 Author Organization [employer] Address [address] [place] [address] Care Team Providers Name Role Phone Sheeba Castillo APRN, CNP Primary Care Provider [phone] Encounter Details Date Type Department Care Team Description 09/13/2020 Notes/Orders [facility] [address] [place] [address] Social History Tobacco Use Types Packs/Day Years Used Date Smoking Tobacco: Former Cigarettes 0.3 15 Quit : 04/25/2015 Smokeless Tobacco: Never Alcohol Use Standard Drinks/Week Comments Yes 1 (1 standard drink = 0.6 oz pure alcoho l) 1-3 drinks a week Sex Assigned at Date Recorded Female 05/09/2021 7:19 PM CERTIFIED DIALYSIS TECHNICIAN documented as of this encounter Progress Notes Le Mariee RPh - 09/13/2020 1:26 PM CDT Idania Duarte???s Entyvio/vedolizumab (Dr. Haines) Therapy Plan orders [...] 09/15/2022 Telemedicine Gastroenterology Eusebio Haines MD [address] [place], [place] [id number] documented as of this encounter Visit Diagnoses Not on filedocumented in this encounter Care Teams Cookie Breaker Relationship Specialty Start Date End Date Sheeba Castillo, MANAGER TALENT ACQUISITION, LICENSED RETAIL SUPERVISOR PCP - General Nurse Practitioner 07/20/[address] [place] [address] documented as of this encounter
--- OUTSIDE RECORDS SUMMARY | 2022-05-09 19:20 | XMS_ITS | Encounter Summary ---
:1975 Author Organization [employer] Address [address] [place] [address] Care Team Providers Name Role Phone Sheeba Castillo APRN, SIERRA Primary Care Provider [phone] Encounter Details Date Type Department Care Team Description 04/08/2020 Lab Visit [facility] Well adult exam [address] [place], [place] [address] Social History Tobacco Use Types Packs/Day Years Used Date Smoking Tobacco: Former Cigarettes 0.3 15 Quit : 04/25/2015 Smokeless Tobacco: Never Alcohol Use Standard Drinks/Week Comments Yes 1 (1 standard drink = 0.6 oz pure alcoho l) 1-3 drinks a week Sex Assigned at Date Recorded Female 05/09/2021 7:19 PM ASSOCIATE PROFESSOR OF PSYCHOLOGY documented as of this encounter Plan of Treatment Upcoming Encounters Date Type Specialty Care Team Description 05/12/2022 Hospital Encounter Chemo Therapy/Infusion Services 09/15/2022 Telemedicine Gastroenterology Eusebio Haines MD [address] [place], [place] [address] documented as of this encounter Procedures Procedure [...] (04/08/2020 3:56 PM CDT) Analysis Performed At [facility] Time Signature Sodium 139 136 - 145 04/08/2020 [facility] mmol/L 4:39 PM CDT LABORATORY Potassium 3.4 (L) 3.5 - 5.1 04/08/2020 [facility] mmol/L 4:39 PM CDT LABORATORY Chloride 102 98 - 109 04/08/2020 [facility] mmol/L 4:39 PM CDT LABORATORY CO2 28 20 - 29 04/08/2020 [facility] mmol/L 4:39 PM CDT LABORATORY Anion Gap 9 7 - 16 04/08/2020 [facility] mmol/L 4:39 PM CDT LABORATORY Calcium 8.9 8.4 - 10.4 04/08/2020 [facility] mg/dL 4:39 PM CDT LABORATORY BUN 11 7 - 26 04/08/2020 [facility] mg/dL 4:39 PM CDT LABORATORY Creatinine 0.80 0.55 - 04/08/2020 [facility] 1.02 mg/dL 4:39 PM CDT LABORATORY GFR, Estimated >60 >60 04/08/2020 [facility] mL/min/1.7 4:39 PM CDT LABORATORY 3m2 Glucose 95 70 - 100 04/08/2020 [facility] mg/dL 4:39 PM CDT LABORATORY Comment: The given reference range is fo r the fasting state. Non-fasting reference range for glucose is 70 - 180 mg/dL. Hours Fasting 4 04/08/2020 4:39 PM CDT [facility] Specimen Anatomical Collection Method / Collection Time Recei peña Time (Source) Location / Volume Laterality Blood Venipuncture / 04/08/2020 3:56 04/08/2020 3:56 Unknown PM CDT PM CDT Idania Andrade MD LAB_1 Performing Organization Address City/State/ZIP Code Phon e Number [facility] [address] [place] [address] Lipid Panel and Direct LDL(If Needed) (04/08/2020 3:56 PM CDT) Analysis Performed At [facility] Time Signature Cholesterol 175 0 - 199 04/08/2020 [facility] mg/dL 4:39 PM CDT LABORATORY Triglyceride 108 <=149 04/08/2020 [facility] mg/dL 4:39 PM CDT LABORATORY HDL Cholesterol 59 >=40 mg/dL 04/08/2020 [facility] 4:39 PM CDT LABORATORY LDL, Calculated 94 <130 mg/dL 04/08/2020 [facility] 4:39 PM CDT LABORATORY Non HDL Chol, 116 mg/dL 04/08/2020 [facility] Calculated 4:39 PM CDT LABORATORY Cholesterol/HDL 3.0 04/08/2020 [facility] Ratio 4:39 PM CDT LABORATORY Hours Fasting 4 04/08/2020 [facility] 4:39 PM CDT LABORATORY Specimen Anatomical Collection Method / Collection Time Recei peña Time (Source) Location / Volume Laterality Blood Venipuncture / 04/08/2020 3:56 04/08/2020 3:56 Unknown PM CDT PM CDT Idania Andrade MD LAB_1 Performing Organization Address City/State/ZIP Code Phon e Number [facility] [address] [place] [address] documented in this encounter Visit Diagnoses Diagnosis Well adult exam Routine general medical examination at a health care facility documented in this encounter Care Teams Lump Inspector Relationship Specialty Start Date End Date Sheeba Castillo APRN, SLUDGE CONTROL OPERATOR PCP - General Nurse Practitioner 07/20/16 [address] [place] [address] documented as of this encounter
--- OUTSIDE RECORDS SUMMARY | 2022-05-09 19:20 | XMS_ITS | Encounter Summary ---
:1975 Author Organization [facility] Address [address] [place] [address] Care Team Providers Name Role Phone Sheeba Castillo APRN, CNP Primary Care Provider [phone] Reason for Visit Reason Comments Infusion Infusion Therapy Plan (Routine) - Authorized Specialty Diagnoses / Procedures Referred By Contact Refer red To Contact Diagnoses Other ulcerative colitis with rectal bleeding (HRC) Eusebio Haines MD [facility] [address] [facility] [address] [place], [place] [address] [place] [address] Phone: Fax: Referral ID Status Reason Start Date Expiration Date Visits V isits Requested Authorized [id number] Authorized 09/04/2019 07/24/2022 [id number] Encounter Details Date Type Department Care Team Description 01/28/2020 Hospital Encounter [facility] Other ulcerative [address] [facility] [place] [address] bleeding (HRC) (Primary [phone] Dx) Social History Tobacco Use Types Packs/Day Years Used Date Smoking Tobacco: Former Cigarettes 0.3 15 Quit : 04/25/2015 Smokeless Tobacco: Never Alcohol Use Standard Drinks/Week Comments Yes 1 (1 standard drink = 0.6 oz pure alcoho l) 1-3 drinks a week Sex Assigned at Date Recorded Female 05/09/2021 7:19 PM INFORMATION SECURITY ASSOCIATE documented as of this encounter Last [...] Services 09/15/2022 Telemedicine Gastroenterology Eusebio Haines MD [address] [place] [address] documented as of this encounter Visit Diagnoses [...] certified documented in this encounter Care Teams Senior Scheduler Relationship Specialty Start Date End Date Sheeba Castillo, ELECTRICAL PROSPECTING SUPERVISOR, SUPERINTENDENT METERS PCP - General Nurse Practitioner 07/20/16 [address] [place] [address] documented as of this encounter
--- OUTSIDE RECORDS SUMMARY | 2022-05-09 19:20 | XMS_ITS | Encounter Summary ---
:1975 Author Organization [employer] Address [address] [place] [address] Care Team Providers Name Role Phone Sheeba Castillo APRN, SIERRA Primary Care Provider [phone] Encounter Details Date Type Department Care Team Description 08/16/2020 Notes/Orders [facility] [address] [place] [address] Rasmussen MD Gastroenterology [address] [facility] [address] [employer] 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
--- OUTSIDE RECORDS SUMMARY | 2022-05-09 19:20 | XMS_ITS | Encounter Summary ---
:1975 Author Organization [employer] Address [address] [address] Care Team Providers Name Role Phone Sheeba Castillo APRN, SIERRA Primary Care Provider [phone] Reason for Visit Reason Comments Refill Encounter Details Date Type Department Care Team Description 12/15/2019 Refill Specialty Center Sravan Turner MD Refill Gastroenterology [address] [place] [address] [place], [place] [address] [phone] Social History Tobacco Use Types Packs/Day Years Used Date Smoking Tobacco: Former Cigarettes 0.3 15 Quit : 04/25/2015 Smokeless Tobacco: Never Alcohol Use Standard Drinks/Week Comments Yes 1 (1 standard drink = 0.6 oz pure alcoho l) 1-3 drinks a week Sex Assigned at Date Recorded Female 05/09/2021 7:19 PM LICENSED PRACTICAL VOCATIONAL NURSE documented as of this encounter Nursing Notes Beth Nichols RN - 12/16/2019 2:03 PM CDT Last [...] 09/15/2022 Telemedicine Gastroenterology Eusebio Haines MD [address] [place], [place] [address] documented as of this encounter Visit Diagnoses Diagnosis Ulcerative rectosigmoiditis with rectal bleeding (HRC) documented in this encounter Care Teams Wood Piler Relationship Specialty Start Date End Date Sheeba Castillo APRN, INSECTICIDE MIXER PCP - General Nurse Practitioner 07/20/[address] [place] [address] documented as of this encounter
--- OUTSIDE RECORDS SUMMARY | 2022-05-09 19:20 | XMS_ITS | Encounter Summary ---
:1975 Author Organization [employer] Address [address] [place] [address] Care Team Providers Name Role Phone Sheeba Castillo APRN, ROOF SERVICE TECHNICIAN Primary Care Provider [phone] Reason for Visit Reason Comments Medication Questions Entered automatically based on patient selection in [facility]. Encounter Details Date Type Department Care Team Description 04/08/2020 E-Visit Idania Triana, Dx: An xiety (Primary Dx) Medicine [address] [facility] [address] [place] [address] [place] [phone] [address] Social History Tobacco Use Types Packs/Day Years Used Date Smoking Tobacco: Former Cigarettes 0.3 15 Quit : 04/25/2015 Smokeless Tobacco: Never Alcohol Use Standard Drinks/Week Comments Yes 1 (1 standard drink = 0.6 oz pure alcoho l) 1-3 drinks a week Sex Assigned at Date Recorded Female 05/09/2021 7:19 PM BEER MERCHANT documented as of this encounter Nursing Notes Idania Andrade MD - 04/08/2020 1:08 PM CDT We decided to start BuSpar after discussion of options through the E visit. Reviewed possible side effects and length to action. Follow-up 1 month if needed. Key Onofre RN - 04/08/2020 10:51 AM CDT Clinician Action: New Order Medication Clinician Next Step: Reply in MyChart Specific Request(s): 1. Pt is requesting to start medication for anxiety. Please advise if appointment needed to discuss further. documented in this encounter Plan of Treatment Upcoming Encounters Date Type Specialty Care Team Description 05/12/2022 Hospital Encounter Chemo Therapy/Infusion Services 09/15/2022 Telemedicine Gastroenterology Eusebio Haines MD [address] [place] [address] documented as of this encounter Visit Diagnoses Diagnosis Anxiety (HRC) - Primary Anxiety state, unspecified documented in this encounter Care Teams Dog Pound Attendant Relationship Specialty Start Date End Date Sheeba Castillo, PRESSER ALL AROUND, ROOF SERVICE TECHNICIAN PCP - General Nurse Practitioner 07/20/16 [address] [place] [address] documented as of this encounter
--- OUTSIDE RECORDS SUMMARY | 2022-05-09 19:20 | XMS_ITS | Encounter Summary ---
:1975 Author Organization [employer] Address [address] [address] Care Team Providers Name Role Phone Sheeba Castillo APRN, SIERRA Primary Care Provider [phone] Reason for Visit Reason Comments Refill Hyoscyamine + Cholestyramine Encounter Details Date Type Department Care Team Description 01/12/2020 Refill Specialty Center [address] Sravan Haines MD Refill (Hyoscyamine + Gastroenterology [address] Cholestyramine) [address] [place] [address] [phone] Social History Tobacco Use Types Packs/Day Years Used Date Smoking Tobacco: Former Cigarettes 0.3 15 Quit : 04/25/2015 Smokeless Tobacco: Never Alcohol Use Standard Drinks/Week Comments Yes 1 (1 standard drink = 0.6 oz pure alcoho l) 1-3 drinks a week Sex Assigned at Date Recorded Female 05/09/2021 7:19 PM ACTIVITIES ASSISTANT documented as of this encounter Nursing [...] 09/15/2022 Telemedicine Gastroenterology Eusebio Haines MD [address] [place], [place] [address] documented as of this encounter Visit Diagnoses Not on filedocumented in this encounter Care Teams Supervisor Tank Cleaning Relationship Specialty Start Date End Date Sheeba Castillo, MILKING MACHINE MECHANIC, SENIOR VICE PRESIDENT AND CHIEF INFORMATION OFFICER PCP - General Nurse Practitioner 07/20/16 [address] [place] [address] documented as of this encounter
--- OUTSIDE RECORDS SUMMARY | 2022-05-09 19:20 | XMS_ITS | Encounter Summary ---
:1975 Author Organization [email or web address] Address [address] [place] [address] Care Team Providers Name Role Phone Sheeba Castillo APRN, PURCHASING/RECEIVING Primary Care Provider Encounter Details Date Type Department Care Team Description 08/19/2020 Notes/Orders [facility] Prakash Fitzgerald, Preop examination Laboratory [address] [place] [phone] (Wo rk) Social History Tobacco Use Types Packs/Day Years Used Date Smoking Tobacco: Former Cigarettes 0.3 15 Quit : 04/25/2015 Smokeless Tobacco: Never Alcohol Use Standard Drinks/Week Comments Yes 1 (1 standard drink = 0.6 oz pure alcoho l) 1-3 drinks a week Sex Assigned at Date Recorded Female 05/09/2021 7:19 PM TELECOM FIELD TECHNICIAN documented as of this encounter Plan of Treatment Upcoming Encounters Date Type Specialty Care Team Description 05/12/2022 Hospital Encounter Chemo Therapy/Infusion Services 09/15/2022 Telemedicine Gastroenterology Eusebio Haines MD [address] [place], [place] [address] documented as of this encounter Results Asymptomatic - 2019 Novel Coronavirus (COVID-19) (08/20/2020 4:06 PM TELECOM FIELD TECHNICIAN) [facility] Method Time Signature COVID-19 Not Not 08/21/2020 [facility] Interpretation Detected Detected 5:42 AM CENTRAL LAB TELECOM FIELD TECHNICIAN Specimen Anatomical Collection Method Collection Time Receive d Time (Source) Location / / Volume Laterality Swab (Source Non-blood 08/20/2020 4:06 PM 4:13 Required) Collection / TELECOM FIELD TECHNICIAN PM TELECOM FIELD TECHNICIAN Unknown Narrative [facility] - 08/21/2020 5:42 AM TELECOM FIELD TECHNICIAN Test performed by Seat Cover Cutter Mediated Amplification. TMA has been shown to be equivalent to commercial real-time PCR t ests. This test has been authorized by the FDA under an Emergency Use Authorization (EUA) for use by authorized laboratories. Prakash Fitzgerald MD LAB_1 Performing Organization Address City/State/ZIP Code Phon e Number [facility] [address] [id number] documented in this encounter Visit Diagnoses Diagnosis Preop examination Preoperative examination, unspecified documented in this encounter Care Teams Dehydrogenation Converter Helper Relationship Specialty Start Date End Date Sheeba Castillo APRN, PURCHASING/RECEIVING PCP - General Nurse Practitioner 07/20/16 [address] [place] [address] documented as of this encounter
--- OUTSIDE RECORDS SUMMARY | 2022-05-09 19:20 | XMS_ITS | Encounter Summary ---
:1975 Author Organization [email or web address] Address [address] [address] Care Team Providers Name Role Phone Sheeba Castillo APRN, ESOL TEACHER Primary Care Provider Reason for Visit Reason Comments Refill Encounter Details Date Type Department Care Team Description 12/16/2019 Refill Specialty Center Sravan Turner MD Refill Gastroenterology [address] [place] [address] [place], [place] [address] [phone] Social History Tobacco Use Types Packs/Day Years Used Date Smoking Tobacco: Former Cigarettes 0.3 15 Quit : 04/25/2015 Smokeless Tobacco: Never Alcohol Use Standard Drinks/Week Comments Yes 1 (1 standard drink = 0.6 oz pure alcoho l) 1-3 drinks a week Sex Assigned at Date Recorded Female 05/09/2021 7:19 PM SKIDWAY WORKER documented as of this encounter Nursing [...] Services 09/15/2022 Telemedicine Gastroenterology Eusebio Haines MD [address] [place] [address] documented as of this encounter Visit Diagnoses Not on filedocumented in this encounter Care Teams Sales Training Coordinator Relationship Specialty Start Date End Date Sheeba Castillo APRN, ESOL TEACHER PCP - General Nurse Practitioner 07/20/[address] [place] [address] documented as of this encounter
--- OUTSIDE RECORDS SUMMARY | 2022-05-09 19:20 | XMS_ITS | Encounter Summary ---
:1975 Author Organization [employer] Address [address], [place] [address] Care Team Providers Name Role Phone hSeeba Castillo APRN, SIERRA Primary Care Provider [phone] Reason for Visit Reason Comments Prior Authorization For Medication budesonide Encounter Details Date Type Department Care Team Description 01/02/2020 Telephone Specialty Center [address] Sravan Haines MD Prior Authorization For Gastroenterology [address] Medication (budesonide) [address] [place] [address] [phone] Social History Tobacco Use Types Packs/Day Years Used Date Smoking Tobacco: Former Cigarettes 0.3 15 Quit : 04/25/2015 Smokeless Tobacco: Never Alcohol Use Standard Drinks/Week Comments Yes 1 (1 standard drink = 0.6 oz pure alcoho l) 1-3 drinks a week Sex Assigned at Date Recorded Female 05/09/2021 7:19 PM PARKING LOT ATTENDANT AND CASHIER documented as of this encounter Nursing Notes Charles Duran RN - 01/05/2020 10:21 AM CDT Fax from [employer]. Budesonide ER tablets approved. Authorization dates are 12/03/2019 to 01/01/2023. Case number is [id number]. Vickie Garcia LPN - 01/02/2020 4:51 PM CDT MEDICATION PRIOR AUTHORIZATION Medication name: budesonide ER 9 mg Sig: take 1 tablet PO daily Provider name: Yancy Insurance: [employer] Member number: [id number] Prior authorization form completed and faxed along with notes to pharmacy benefits director. documented in this encounter Plan of Treatment Upcoming Encounters Date Type Specialty Care Team Description 05/12/2022 Hospital Encounter Chemo Therapy/Infusion Services 09/15/2022 Telemedicine Gastroenterology Eusebio Haines MD [address] [place], [place] [address] documented as of this encounter Visit Diagnoses Not on filedocumented in this encounter Care Teams Steel Box Toe Inserter Relationship Specialty Start Date End Date Sheeba Castillo APRN, ELECTRICIAN BUS PCP - General Nurse Practitioner 07/20/16 [address] [place] [address] documented as of this encounter
--- OUTSIDE RECORDS SUMMARY | 2022-05-09 19:20 | XMS_ITS | Encounter Summary ---
:1975 Author Organization [employer] Address [address] [place] [address] Care Team Providers Name Role Phone Sheeba Castillo APRN, CNP Primary Care Provider [phone] Reason for Visit Reason Comments Orders Needed Encounter Details Date Type Department Care Team Description 07/01/2020 Telephone Specialty Center Sravan Turner MD Orders Needed Endoscopy [address] [place] [address] [place], [place] [address] [phone] Social History Tobacco Use Types Packs/Day Years Used Date Smoking Tobacco: Former Cigarettes 0.3 15 Quit : 04/25/2015 Smokeless Tobacco: Never Alcohol Use Standard Drinks/Week Comments Yes 1 (1 standard drink = 0.6 oz pure alcoho l) 1-3 drinks a week Sex Assigned at Date Recorded Female 05/09/2021 7:19 PM CREATIVE CONSULTANT documented as of this encounter Nursing Notes Lucy Hunt, RN - 07/06/2020 10:06 AM CST Left detailed vm on pt's personal cell advising that Dr. Haines would like her to schedule a video visit and asked that she call back scheduling to get this scheduled. Spoke with RUDY Barney at [facility] giving message from Dr. Haines below, she verbalized understanding. To scheduling to call for appt if pt does not call back Eusebio Sims MD - 07/02/2020 5:49 PM CST No labs needed for the patient to resume her Entyvio infusions at [facility]. However she does need an appointment with [...] Khan RN - 07/02/2020 2:42 PM CST [facility] calling wondering if you want any labs prior/day of infusion and if you want LFT's done since doesn't look like it was done in a year or she doesn't have any records that it was done in a year. Phone - [phone] - . Eusebio Sims MD - 07/01/2020 7:32 AM CST Just received Infusion Therapy Request Form this morning in my mailbox, [facility]. Patient had been getting vedolizumab infusions at [facility] infusion center last year, last infusion in April 2020, but requested transfer of herinfusions to a more convenient location in [facility]. Filled out paper work and signed it with vedolizumab dose and frequency, diagnosis with ICD code. I see that records for patient (which I presume includes all orders (premeds, contingency meds for reactions, and infusion dose patient had been getting up until her last infusion at [facility] last year)were faxed to [facility] on 06/29/2020. Aforementioned [...] to risk her disease relapsing. Thank you. TIVE CONSULTANT documented in this encounter Plan of Treatment Upcoming Encounters Date Type Specialty Care Team Description 05/12/2022 Hospital Encounter Chemo Therapy/Infusion Services 09/15/2022 Telemedicine Gastroenterology Eusebio Haines MD [address] [place], [place] [address] documented as of this encounter Visit Diagnoses Not on filedocumented in this encounter Care Teams Ultrasonic Welding Machine Operator Relationship Specialty Start Date End Date Sheeba Castillo, SAP BUSINESS OBJECTS DEVELOPER, DIETARY AIDE TEACHER PCP - General Nurse Practitioner 07/20/16 [address] [place] [id number] documented as of this encounter
--- OUTSIDE RECORDS SUMMARY | 2022-05-09 19:20 | XMS_ITS | Encounter Summary ---
:1975 Author Organization [employer] Address [address] [place] [address] Care Team Providers Name Role Phone Sheeba Castillo APRN, VEST BUSHELER Primary Care Provider [phone] Reason for Visit Reason Onset Date Comments Refill 02/27/2020 norethindrone-eth es tradiol (PIRMELLA ) 1-35 MG-MCG tablet Encounter Details Date Type Department Care Team Description 02/27/2020 Refill [facility] Iggy Hernandez MD Refill Medicine [address] Reyna (norethindrone-eth [address] [place], [place] estradiol ([place] [address] ) 1-35 MG-MCG [phone] (Wo rk) tablet) Social History Tobacco Use Types Packs/Day Years Used Date Smoking Tobacco: Former Cigarettes 0.3 15 Quit : 04/25/2015 Smokeless Tobacco: Never Alcohol Use Standard Drinks/Week Comments Yes 1 (1 standard drink = 0.6 oz pure alcoho l) 1-3 drinks a week Sex Assigned at Date Recorded Female 05/09/2021 7:19 PM LEAD INSPECTOR documented as of this encounter Nursing Notes Sindy Duron RN - 03/02/2020 8:19 AM CDT Requested Prescriptions Pending Prescriptions Disp Refills ??? norethindrone-eth estradiol (PIRMELLA ) 1-35 MG-MCG tablet 112 Tablet Sig: Take 1 Tablet by mouth daily. CONTINOUSLY Interface, Out D square nv Prov Query - 02/27/2020 12:50 PM CDT norethindrone-eth estradiol (PIRMELLA ) 1-35 MG-MCG tablet Medication started: 03/03/2014 Last [...] visit: 03/15/2020 (with IGGY HERNANDEZ) Powered by [employer], Reference: [id number], 02/27/2020 12:50:37 PM CDT, [place]: [facility] ([id number]) documented in this encounter Plan of Treatment Upcoming Encounters Date Type Specialty Care Team Description 05/12/2022 Hospital Encounter Chemo Therapy/Infusion Services 09/15/2022 Telemedicine Gastroenterology Eusebio Haines MD [address] [place], [place] [address] documented as of this encounter Visit Diagnoses Diagnosis Well adult exam Routine general medical examination at a health care facility documented in this encounter Care Teams Aboriginal Community Council Member Relationship Specialty Start Date End Date Sheeba Castillo, WATCH COMMANDER, VEST BUSHELER PCP - General Nurse Practitioner 07/20/16 [address] [place] [address] documented as of this encounter
--- OUTSIDE RECORDS SUMMARY | 2022-05-09 19:20 | XMS_ITS | Encounter Summary ---
:1975 Author Organization [employer] Address [address] [place] [address] Care Team Providers Name Role Phone Sheeba Castillo APRN, SIERRA Primary Care Provider [phone] Reason for Visit Reason Comments Refill triamterene-hydrochlorothiaz enedelia (MAXZIDE-25) 37.5-25 MG tablet [Pharmacy Med Name: Triamterene-HCTZ Oral Tablet 37.5-25 MG] Encounter Details Date Type Department Care Team Description 02/26/2020 Refill [facility] Iggy Arredondo MD Refill Medicine [address] [place] (triamterene-hydrochloro [address] 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 Patient overdue for Qualifying visit. An office visit is overdue (performed over 14 months ago, required every 12 months). ? Last qualifying visit: 12/19/2018 (with IGGY HERNANDEZ) (A more recent visit (in Family Practice ? with ESTEBAN KRISHNAMURTHY) was found) ? Next scheduled visit: 03/15/2020 (with IGGY HERNANDEZ) ?? Review pended order for accuracy. Sign [...] Medication started: 08/26/2014 Last ordered by IGGY HERNANDEZ (350 days ago) QTY: 90, Refills: 3, Sig: take 1 tablet by mouth daily. (changed but equivalent) -> An office visit is overdue (performed over 14 months ago, required every 12 months). Last qualifying visit: 12/19/2018 (with IGGY HERNANDEZ) (A more recent visit (in Family Practice with ESTEBAN KRISHNAMURTHY) was found) Next scheduled visit: 03/15/2020 (with IGGY HERNANDEZ) Cr: 0.8 mg/dL on 12/01/2019 Na: 137 mEq/L on 06/06/2019 K: 3.6 mEq/L on 06/06/2019 Powered by [employer], Reference: [id number], 02/26/2020 2:15:09 PM CDT, Pool: [facility] ([id number]) Interface, Out Pixways Prov Query - 02/26/2020 2:15 PM CDT The following lab order(s) may be associated with the following Patient Result Comment (Entered by Faye Hinojosa, RUDY, SEED ANALYST at 06/07/2019 7:56 AM): BASIC METABOLIC PANEL Hi Iggy - labs are looking better. Hoping you are still feeling well. Take care!Faye documented in this encounter Plan of Treatment Upcoming Encounters Date Type Specialty Care Team Description 05/12/2022 Hospital Encounter Chemo Therapy/Infusion Services 09/15/2022 Telemedicine Gastroenterology Eusebio Haines MD [address] [place] [address] documented as of this encounter Visit Diagnoses Diagnosis Essential hypertension (HRC) Unspecified essential hypertension documented in this encounter Care Teams Port Captain Relationship Specialty Start Date End Date Sheeba Castillo, RUDY, SEED ANALYST PCP - General Nurse Practitioner 07/20/[address] [place] [id number] documented as of this encounter
--- OUTSIDE RECORDS SUMMARY | 2022-05-09 19:20 | XMS_ITS | Encounter Summary ---
:1975 Author Organization [employer] Address [address] [place] [address] Care Team Providers Name Role Phone Sheeba Castillo APRN, CNP Primary Care Provider [phone] Reason for Visit Reason Comments Infusion Infusion Therapy Plan (Routine) - Authorized Specialty Diagnoses / Procedures Referred By Contact Refer red To Contact Diagnoses Other ulcerative colitis with rectal bleeding (HRC) Eusebio Haines MD [facility] [address] [place], [place] [address] [place] [address] Phone: Fax: Referral ID Status Reason Start Date Expiration Date Visits V isits Requested Authorized [id number] Authorized 09/04/2019 07/24/2022 999 [id number] Encounter Details Date Type Department Care Team Description 03/17/2020 Hospital Encounter [facility] Other ulcerative [address] [facility] [place] [address] bleeding (HRC) (Primary [phone] Dx) Social History Tobacco Use Types Packs/Day Years Used Date Smoking Tobacco: Former Cigarettes 0.3 15 Quit : 04/25/2015 Smokeless Tobacco: Never Alcohol Use Standard Drinks/Week Comments Yes 1 (1 standard drink = 0.6 oz pure alcoho l) 1-3 drinks a week Sex Assigned at Date Recorded Female 05/09/2021 7:19 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
--- OUTSIDE RECORDS SUMMARY | 2022-05-09 19:20 | XMS_ITS | Encounter Summary ---
:1975 Author Organization [employer] Address [address] [place] [address] Care Team Providers Name Role Phone Sheeba Castillo APRN, LACE INSPECTOR Primary Care Provider [phone] Reason for Visit Reason Onset Date Comments Refill 05/19/2020 norethindrone-eth es tradiol (PIRMELLA ) 1-35 MG-MCG tablet Encounter Details Date Type Department Care Team Description 05/19/2020 Refill [facility] Iggy Hernandez MD Refill Medicine [address] Reyna (norethindrone-eth [address] [place], [place]radiol ([place] [address] ) 1-35 MG-MCG [phone] (Wo rk) tablet) Social History Tobacco Use Types Packs/Day Years Used Date Smoking Tobacco: Former Cigarettes 0.3 15 Quit : 04/25/2015 Smokeless Tobacco: Never Alcohol Use Standard Drinks/Week Comments Yes 1 (1 standard drink = 0.6 oz pure alcoho l) 1-3 drinks a week Sex Assigned at Date Recorded Female 05/09/2021 7:19 PM BILLET SAWYER documented as of this encounter Nursing Notes Rufina Cleary RN - 05/21/2020 10:38 AM CST Renewed medication per medication refill protocol. Requested Prescriptions Signed Prescriptions Disp Refills ??? norethindrone-eth estradiol (PIRMELLA ) 1-35 MG-MCG tablet 112 Tablet 3 Sig: Take 1 Tablet by mouth daily. CONTINOUSLY Authorizing Provider: IGGY HERNANDEZ Ordering User: RUFINA CLEARY ET SAWYER Interface, Out Dental [employer] Prov Query - 05/19/2020 4:19 PM CST norethindrone-eth estradiol (PIRMELLA ) 1-35 MG-MCG tablet Medication started: 09/30/2014 Last ordered by IGGY HERNANDEZ: 03/03/2020 (77 days ago) QTY: 112, Refills: 0, Sig: take 1 tablet by mouth daily. continously (unchanged) -> Refill x 12 months (until due for an office visit) -> Calculate the quantity and number of refills manually. Last qualifying visit: 03/15/2020 (with IGGY HERNANDEZ) Next scheduled visit: None Powered by [email or web address]], Reference: [id number], 05/19/2020 4:18:58 PM BILLET SAWYER, Pool: [facility] ([id number]) ET SAWYER documented in this encounter Plan of Treatment Upcoming Encounters Date Type Specialty Care Team Description 05/12/2022 Hospital Encounter Chemo Therapy/Infusion Services 09/15/2022 Telemedicine Gastroenterology Eusebio Haines MD [address] [place], [place] [address] documented as of this encounter Visit Diagnoses Diagnosis Well adult exam Routine general medical examination at a health care facility documented in this encounter Care Teams Cashier Courtesy Booth Relationship Specialty Start Date End Date Sheeba Castillo, FELT COVERER, LACE INSPECTOR PCP - General Nurse Practitioner 07/20/16 [address] [place] [address] documented as of this encounter
--- OUTSIDE RECORDS SUMMARY | 2022-05-09 19:20 | XMS_ITS | Encounter Summary ---
:1975 Author Organization [employer] Address [address] [place] [address] Care Team Providers Name Role Phone Sheeba Castillo APRN, EVALUATION SPECIALIST Primary Care Provider [phone] Reason for Visit Reason Comments Video Visit Encounter Details Date Type Department Care Team Description 03/15/2020 Telemedicine Iggy Triana Well a dult exam (Primary Dx); Medicine Overweight; 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 When should you call for help? Watch closely for changes in your health, and be sure to contact your doctor if you have any problems or symptoms that concern you. Where can you learn more? 1. Go to https://[employer]/healthlibrary or [employer]Tappit. 2. Enter P072 in the search box. Current as of: February 12, 2019?Content Version: 12.4 ?? [id number] [employer]. Care instructions adapted under license by your healthcare professional. If you have questions abouta medical condition or this instruction, always ask your healthcare professional. [employer] disclaims any warranty or liability for your use of this information. documented in this encounter Progress Notes Iggy Hernandez MD - 03/15/2020 4:00 PM CDT Addended by: IGGY HERNANDEZ on: 04/09/2020 03:48 PM Modules accepted: Orders Iggy Hernandez MD - 03/15/2020 4:00 PM CDT Subjective: [...] Melanoma Trunk 11/01/2010 ??? Obesity (HRC) 08/11/2011 Manager Payroll History: Last Pap Smear: Due 2020 Current [...] Not on file Occupational History ??? 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 Comment: [employer] Social Needs ??? Financial [...] file Gets together: Not on file Attends episcopalian service: Not on file Active member of [...] History Narrative . 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 Preventive Health Assessment: Health [...] Services 09/15/2022 Telemedicine Gastroenterology Eusebio Haines MD [address] [place], [place] [address] documented as of this encounter Results (ABNORMAL) Basic Metabolic Panel (04/08/2020 3:56 PM CDT) Analysis Performed At Patho logist Time Signature Sodium 139 136 - 145 04/08/2020 [facility] mmol/L 4:39 PM CDT LABORATORY Potassium 3.4 (L) 3.5 - 5.1 04/08/2020 [facility] mmol/L 4:39 PM CDT LABORATORY Chloride 102 98 - 109 04/08/2020 [facility] mmol/L 4:39 PM CDT LABORATORY CO2 28 20 - 29 04/08/2020 [facility] mmol/L 4:39 PM CDT LABORATORY Anion Gap 9 7 - 16 04/08/2020 [facility] mmol/L 4:39 PM CDT LABORATORY Calcium 8.9 8.4 - 10.4 04/08/2020 [facility] mg/dL 4:39 PM CDT LABORATORY BUN 11 7 - 26 04/08/2020 [facility] mg/dL 4:39 PM CDT LABORATORY Creatinine 0.80 0.55 - 04/08/2020 [facility] 1.02 mg/dL 4:39 PM CDT LABORATORY GFR, Estimated >60 >60 04/08/2020 [facility] mL/min/1.7 4:39 PM CDT LABORATORY 3m2 Glucose 95 70 - 100 04/08/2020 [facility] mg/dL 4:39 PM CDT LABORATORY Comment: The given reference range is fo r the fasting state. Non-fasting reference range for glucose is 70 - 180 mg/dL. Hours Fasting 4 04/08/2020 4:39 PM CDT [facility] Specimen Anatomical Collection Method / Collection Time Recei peña Time (Source) Location / Volume Laterality Blood Venipuncture / 04/08/2020 3:56 04/08/2020 3:56 Unknown PM CDT PM CDT Iggy Hernandez MD LAB_1 Performing Organization Address City/State/ZIP Code Phon e Number [facility] [address] [place] [address] Lipid Panel and Direct LDL(If Needed) (04/08/2020 3:56 PM CDT) Analysis Performed At Patho logist Time Signature Cholesterol 175 0 - 199 04/08/2020 [facility] mg/dL 4:39 PM CDT LABORATORY Triglyceride 108 <=149 04/08/2020 [facility] mg/dL 4:39 PM CDT LABORATORY HDL Cholesterol 59 >=40 mg/dL 04/08/2020 [facility] 4:39 PM CDT LABORATORY LDL, Calculated 94 <130 mg/dL 04/08/2020 [facility] 4:39 PM CDT LABORATORY Non HDL Chol, 116 mg/dL 04/08/2020 [facility] Calculated 4:39 PM CDT LABORATORY Cholesterol/HDL 3.0 04/08/2020 [facility] Ratio 4:39 PM CDT LABORATORY Hours Fasting 4 04/08/2020 [facility] 4:39 PM CDT [facility]ATORY Specimen Anatomical Collection Method / Collection Time Recei peña Time (Source) Location / Volume Laterality Blood Venipuncture / 04/08/2020 3:56 04/08/2020 3:56 Unknown PM CDT PM CDT Iggy Hernandez MD LAB_1 Performing Organization Address City/State/ZIP Code Phon e Number [facility] [address] [place] [address] documented in this encounter Visit Diagnoses Diagnosis Well adult exam - Primary Routine general medical examination at a health care facility Overweight (HRC) Essential hypertension (HRC) Unspecified essential hypertension Hypokalemia Hypopotassemia documented in this encounter Care Teams Head Sampler Relationship Specialty Start Date End Date Sheeba Castillo, FOOD ASSEMBLER KITCHEN, EVALUATION SPECIALIST PCP - General Nurse Practitioner 07/20/16 [address] [place] [place] [address] documented as of this encounter
--- OUTSIDE RECORDS SUMMARY | 2022-05-09 19:20 | XMS_ITS | Encounter Summary ---
:1975 Author Organization [employer] Address [address] [place] [address] Care Team Providers Name Role Phone Sheeba Castillo APRN, SIERRA Primary Care Provider [phone] Reason for Visit Reason Comments Eye Exam Encounter Details Date Type Department Care Team Description 02/27/2020 Office Visit Faye Dangelo, OD Examination of eyes and vision (Primary Dx); Ophthalmology [address] [facility] Severe myopia of both eyes; [address] Regular [place] [address] [place], [place] [phone] (Wo rk) Social History Tobacco Use Types Packs/Day Years Used Date Smoking Tobacco: Former Cigarettes 0.3 15 Quit : 04/25/2015 Smokeless Tobacco: Never Alcohol Use Standard Drinks/Week Comments Yes 1 (1 standard drink = 0.6 oz pure alcoho l) 1-3 drinks a week Sex Assigned at Date Recorded Female 05/09/2021 7:19 PM 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 Call [phone] or [phone] (after hours) with any new or worsening [...] Services 09/15/2022 Telemedicine Gastroenterology Eusebio Haines MD [address] [place], [place] [address] documented as of this encounter Visit Diagnoses Diagnosis Examination of eyes and vision - Primary Severe myopia of both eyes Myopia Regular astigmatism of both eyes Regular astigmatism documented in this encounter Care Teams Fiber Optic Assembler Relationship Specialty Start Date End Date Sheeba Castillo, APPLICATION SUPPORT ENGINEER, NURSING HOME SOCIAL WORKER PCP - General Nurse Practitioner 07/20/16 [address] [place] [address] documented as of this encounter
--- OUTSIDE RECORDS SUMMARY | 2022-05-09 19:20 | XMS_ITS | Encounter Summary ---
:1975 Author Organization [employer] Address [address] [place] [address] Care Team Providers Name Role Phone Sheeba Castillo APRN, CNP Primary Care Provider [phone] Reason for Visit Reason Comments Infusion Infusion Therapy Plan (Routine) - Authorized Specialty Diagnoses / Procedures Referred By Contact Refer red To Contact Diagnoses Other ulcerative colitis with rectal bleeding (HRC) Eusebio Haines MD [facility] [address] [place], [place] [address] [place] [address] Phone: Fax: Referral ID Status Reason Start Date Expiration Date Visits V isits Requested Authorized [id number] Authorized 09/04/2019 07/24/[phone] Encounter Details Date Type Department Care Team Description 11/12/2020 Hospital Encounter [facility] Other ulcerative [address] [facility] [place] [address] bleeding (HRC) (Primary [phone] Dx) Social History Tobacco Use Types Packs/Day Years Used Date Smoking Tobacco: Former Cigarettes 0.3 15 Quit : 04/25/2015 Smokeless Tobacco: Never Alcohol Use Standard Drinks/Week Comments Yes 1 (1 standard drink = 0.6 oz pure alcoho l) 1-3 drinks a week Sex Assigned at Date Recorded Female 05/09/2021 7:19 PM TECHNICAL DESIGNER documented as of this encounter Last Filed [...] 09/15/2022 Telemedicine Gastroenterology Eusebio Haines MD [address] [place] [address] documented as of this encounter Visit Diagnoses [...] certified documented in this encounter Care Teams Accessioner Relationship Specialty Start Date End Date Sheeba Castillo, RESOURCE MANAGEMENT SPECIALIST, PAPER TUBE CUTTER PCP - General Nurse Practitioner 07/20/16 [address] [place] [place] [address] documented as of this encounter
--- OUTSIDE RECORDS SUMMARY | 2022-05-09 19:20 | XMS_ITS | Encounter Summary ---
:1975 Author Organization [employer] Address [address] [place] [address] Care Team Providers Name Role Phone Sheeba Castillo APRN, CNP Primary Care Provider [phone] Reason for Visit Reason Comments Infusion Infusion Therapy Plan (Routine) - Authorized Specialty Diagnoses / Procedures Referred By Contact Refer red To Contact Diagnoses Other ulcerative colitis with rectal bleeding (HRC) Eusebio Hianes MD [facility] [address] [facility] [address] [place], [place] [address] [place] [address] Phone: Fax: Referral ID Status Reason Start Date Expiration Date Visits V isits Requested Authorized [id number] Authorized 09/04/2019 07/24/[phone] Encounter Details Date Type Department Care Team Description 05/10/2020 Hospital En[facility] Other ulcerative [address] [facility] [place] [address] bleeding (HRC) (Primary [phone] Dx) Social History Tobacco Use Types Packs/Day Years Used Date Smoking Tobacco: Former Cigarettes 0.3 15 Quit : 04/25/2015 Smokeless Tobacco: Never Alcohol Use Standard Drinks/Week Comments Yes 1 (1 standard drink = 0.6 oz pure alcoho l) 1-3 drinks a week Sex Assigned at Date Recorded Female 05/09/2021 7:19 PM PEN OR 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 Will return 07/05/19 for next appt. OR PENCIL ASSEMBLY MACHINE OPERATOR documented in this encounter Plan of Treatment Upcoming Encounters Date Type Specialty Care Team Description 05/12/2022 Hospital Encounter Chemo Therapy/Infusion Services 09/15/2022 Telemedicine Gastroenterology Eusebio Haines MD [address] [place], [place] [address] documented as of this encounter Visit Diagnoses Diagnosis Other ulcerative colitis with rectal ble eding (HRC) - Primary documented in this encounter Administered Medications Inactive Administered Medications - up to 3 most recent administrations Medication Order MAR Action Action Date Dose Rate Site acetaminophen (TYLENOL) tablet 975 Given 05/10/2020 2:49 PM PEN OR PENCIL ASSEMBLY MACHINE OPERATOR 975 mg mg 975 mg, Oral, ONCE, On Sun05/10/20 at 1515, For 1 dose sodium chloride 0.9% infusion Started 05/10/2020 2:49 PM PEN OR PENCIL ASSEMBLY MACHINE OPERATOR 500 mL 20 mL/hr 500 mL, Intravenous, at 20 mL/hr, ONCE, On Sun05/10/20 at 1515, For 1 dose sodium chloride 0.9% injection 10-60 mL Given 05/10/2020 3:28 PM PEN OR PENCIL ASSEMBLY MACHINE OPERATOR 10 mL 10-60 mL, Intravenous, PRN BEFORE&AFTER MEDICATIONS OR LAB DRAW, Line Patency, Starting on Sun05/10/20 at 1445, Until Sun05/10/20 at 1753, For 1 day vedolizumab (Entyvio) 300 mg in sodium Started 05/10/2020 2:50 PM PEN OR PENCIL ASSEMBLY MACHINE OPERATOR 300 mg chloride 0.9 % 250 mL infusion 300 mg, Intravenous, Administer over 30 Minutes, ONCE, On Sun05/10/20 at 1530, For 1 dose, BIOTHERAPY - Must be given by chemotherapy/biotherapy certified documented in this encounter Care Teams Residential Director Relationship Specialty Start Date End Date Sheeba Castillo, RUDY, PROFESSOR OF LITERATURE PCP - General Nurse Practitioner 07/20/16 [address] [place] [id number] documented as of this encounter
--- OUTSIDE RECORDS SUMMARY | 2022-05-09 19:20 | XMS_ITS | Encounter Summary ---
:1975 Author Organization [facility] Address [address] [place] [address] Care Team Providers Name Role Phone Sheeba Castillo APRN, CNP Primary Care Provider [phone] Reason for Visit Reason Comments COLITIS, ULCERATIVE Infusion Therapy Plan (Routine) - Authorized Specialty Diagnoses / Procedures Referred By Contact Refer red To Contact Diagnoses Other ulcerative colitis with rectal bleeding (HRC) Eusebio Haines MD [facility] [address] [facility] [address] [address] [address] [place], [place] [address] [place] [address] Phone: Fax: Referral ID Status Reason Start Date Expiration Date Visits V isits Requested Authorized [id number] Authorized 09/04/2019 07/24/2022 999 [id number] Encounter Details Date Type Department Care Team Description 09/16/2020 Hospital Encounter [facility] Other ulcerative [address] [facility] [place] [address] bleeding (HRC) (Primary [phone] Dx) Social History Tobacco Use Types Packs/Day Years Used Date Smoking Tobacco: Former Cigarettes 0.3 15 Quit : 04/25/2015 Smokeless Tobacco: Never Alcohol Use Standard Drinks/Week Comments Yes 1 (1 standard drink = 0.6 oz pure alcoho l) 1-3 drinks a week Sex Assigned at Date Recorded Female 05/09/2021 7:19 PM PARTS ADVISOR documented as of this encounter Last Filed [...] Services 09/15/2022 Telemedicine Gastroenterology Eusebio Haines MD [address] [place], [place] [id number] documented as of this encounter Visit Diagnoses [...] certified documented in this encounter Care Teams Archives Technician Relationship Specialty Start Date End Date Sheeba Castillo, RUDY, LOGISTICS ASSOCIATE PCP - General Nurse Practitioner 07/20/16 [address] [place] [address] documented as of this encounter
--- OUTSIDE RECORDS SUMMARY | 2022-05-09 19:21 | XMS_ITS | Encounter Summary ---
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 [place], [place] Hematochezia 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 There is [id number] wall thickening, and mucosal and mural hyperenhancement [...] scope was passed under direct vision. 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
--- OUTSIDE RECORDS SUMMARY | 2022-05-09 19:21 | XMS_ITS | Encounter Summary ---
:1975 Author Organization [email or web address] Address [address] [place] [address] Care Team Providers Name Role Phone Sheeba Castillo APRN, SIERRA Primary Care Provider [phone] Reason for Visit Reason Comments Appt. Needed Encounter Details Date Type Department Care Team Description [facility]/27[facility]2019 [facility] App[facility]. Needed ENDOSCOPY [address] [address] [facility] 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 Please arrange for the patient to be scheduled for testing (blood work and stool tests) to be completed before her vedolizumab infusion next Sunday. Thanks. documented in this encounter Plan of Treatment Upcoming Encounters Date Type Specialty Care Team Description 05/12/2022 Hospital Encounter Chemo Therapy/Infusion Services 09/15/2022 Telemedicine Gastroenterology Eusebio Haines MD [address] [place], [place] [address] documented as of this encounter Results Cyclospora stain for parasites (12/02/2019 7:51 PM CDT) [facility] Method Time Signature Cyclospora Negative Negative 12/04/2019 [facility] Stain 10:21 AM CDT LABORATORIES Comment: A single negative result does not rule o ut the possibility of a parasitic infection. TEST INFORMATION: The parasitology stain is a modified acid fast stain that detects Cryptosporidium, Cycl ospora and Cystoisospora. Performed by [facility], [address] [place] [phone] www.[employer], Romulo Pritchett MD, Lab. Director Specimen Anatomical Collection Method Collection Time Receive d Time (Source) Location / / Volume Laterality Stool 12/02/2019 7:51 PM 0 8:24 CDT AM CDT Eusebio Haines MD LAB_1 Performing Organization Address [facility] Phon e Number [address] [phone] Microsporidia stain (12/02/2019 7:51 PM CDT) [facility] Method Time Signature Microsporidia Negative Negative 12/04/2019 [facility] Stain 2:54 PM CDT LABORATORIES Comment: A single negative result does not rule o ut the possibility of a microsporidia infection. Performed by [facility], [address] [place] [phone] www.[employer], Romulo Pritchett MD, Lab. Director Specimen Anatomical Collection Method Collection Time Receive d Time (Source) Location / / Volume Laterality Stool 12/02/2019 7:51 PM 0 8:24 CDT AM CDT Eusebio Haines MD LAB_1 Performing Organization Address [facility] Phon e Number [facility] [address] [place], [place] [address] Enteric Parasite PCR (Giardia, Cryptosporidium, E.histolytica) (12/02/2019 4:30 PM CDT) [facility] Method Time Signature Cryptosporidium Not Not 12/05/2019 [facility] sp. DNA (C hominis Detected Detected 2:22 PM CENTRAL LAB and C parvum) CDT Entamoeba Not Not 12/05/2019 [facility] histolytica DNA Detected Detected 2:22 PM [facility]AL LAB CDT Giardia duodenalis Not Not 12/05/2019 [facility] (Giardia lamblia) Detected Detected 2:22 PM CENTRAL LAB DNA CDT Specimen Anatomical Collection Method Collection Time Receive d Time (Source) Location / / Volume Laterality Stool 12/02/2019 4:30 PM 0 8:24 CDT AM CDT Narrative [facility] - 12/05/2019 2:22 PM CDT Methodology: Test performed by qualitative real-time PCR If stool PCR assays are negative and anushka rrhea persists for more than 14 days, consider stool examination for Ova and Parasites per Smart Set Eusebio Haines MD LAB_1 Performing Organization Address [facility]/ZIP Code Phon e Number [facility] [address] [address] CMV By PCR, Qualitative (12/01/2019 3:42 PM CDT) [facility] gist Method Time Signature CMV By PCR, Not Detected 12/04/2019 [facility] Qual 4:12 PM CDT LABORATORIES Comment: NOT DETECTED - A negative result does no t rule out the presence of PCR inhibitors in the patien t specimen or assay specific nucleic acid in concentra tions below the level of detection by the assay. INTERPRETIVE INFORMATION: Cytomegaloviru s Detection by PCR Test developed and characteristics deter mined by [facility]. See Compliance Statement A : [employer]/CS Performed by [facility], [address] [place] [address] www.[employer], Romulo Pritchett MD, Lab. Director CMV Source Plasma 12/04/2019 4:12 PM CDT [facility] Specimen Anatomical Collection Method / Collection Time Recei peña Time (Source) Location / Volume Laterality Blood OTHER / Unknown Venipuncture / 12/01/2019 3:42 020 3:42 Unknown PM CDT PM CDT Eusebio Haines MD LAB_1 Performing Organization Address [facility]/ZIP [facility] Phon e Number [facility] [address] [place], [place] [phone] WBC, Blood (12/01/2019 3:42 PM CDT) athologist Signature WBC 10.1 3.5 - 10.5 12/01/2019 [facility] x10(9)/L 3:47 PM CDT LABORATORY Specimen Anatomical Collection Method / Collection Time Recei peña Time (Source) Location / Volume Laterality Blood Venipuncture / 12/01/2019 3:42 12/01/2019 3:42 Unknown PM CDT PM CDT Eusebio Haines MD LAB_1 Performing Organization Address [facility] Code Phon e Number [facility] [address] [place], [place] [phone] Platelet Count (12/01/2019 3:42 PM CDT) athologist Signature Platelets 336 150 - 450 12/01/2019 [facility] x10(9)/L 3:47 PM CDT LABORATORY Specimen Anatomical Collection Method / Collection Time Recei peña Time (Source) Location / Volume Laterality Blood Venipuncture / 12/01/2019 3:42 12/01/2019 3:42 Unknown PM CDT PM CDT Eusebio Haines MD LAB_1 Performing Organization Address [facility] Phon e Number [facility] [address] [place] [phone] Hemoglobin (12/01/2019 3:42 PM CDT) athologist Signature Hemoglobin 14.1 12.0 - 15.5 12/01/2019 [facility] g/dL 3:47 PM CDT LABORATORY Specimen Anatomical Collection Method / Collection Time Recei peña Time (Source) Location / Volume Laterality Blood Venipuncture / 12/01/2019 3:42 12/01/2019 3:42 Unknown PM CDT PM CDT Eusebio Haines MD LAB_1 Performing Organization Address [facility] Phon e Number [facility] [address] [place], [place] [phone] Bilirubin Total (12/01/2019 3:42 PM CDT) athologist Signature Bilirubin, 0.3 0.2 - 1.2 12/01/2019 [facility] Total mg/dL 4:40 PM CDT LABORATORY Specimen Anatomical Collection Method / Collection Time Recei peña Time (Source) Location / Volume Laterality Blood Venipuncture / 12/01/2019 3:42 12/01/2019 3:42 Unknown PM CDT PM CDT Eusebio Haines MD LAB_1 Performing Organization Address [facility] LABORATORY [address] [place] [address] Alanine Aminotransferase (ALT) (12/01/2019 3:42 PM CDT) athologist Signature ALT (SGPT) 29 0 - 55 U/L 12/01/2019 [facility] 4:40 PM CDT LABORATORY Specimen Anatomical Collection Method / Collection Time Recei peña Time (Source) Location / Volume Laterality Blood Venipuncture / 12/01/2019 3:42 12/01/2019 3:42 Unknown PM CDT PM CDT Eusebio Haines MD LAB_1 Performing Organization Address [facility]ORATORY [address] [place] [address] Alkaline Phosphatase (ALK) (12/01/2019 3:42 PM CDT) athologist Signature Alkaline 71 40 - 150 12/01/2019 [facility] Phosphatase U/L 4:40 PM CDT LABORATORY Specimen Anatomical Collection Method / Collection Time Recei peña Time (Source) Location / Volume Laterality Blood Venipuncture / 12/01/2019 3:42 12/01/2019 3:42 Unknown PM CDT PM CDT Eusebio Haines MD LAB_1 Performing Organization Address [facility] LABORATORY [address] [place] [phone] Creatinine (12/01/2019 3:42 PM CDT) athologist Signature Creatinine 0.80 0.55 - 12/01/2019 [facility] 1.02 mg/dL 4:40 PM CDT LABORATORY GFR, Estimated >60 >60 12/01/2019 [facility] mL/min/1.7 4:40 PM CDT LABORATORY 3m2 GFR, Est If >60 >60 12/01/2019 [facility] mL/min/1.7 4:40 PM CDT LABORATORY Micronesian 3m2 Specimen Anatomical Collection Method / Collection Time Recei peña Time (Source) Location / Volume Laterality Blood Venipuncture / 12/01/2019 3:42 12/01/2019 3:42 Unknown PM CDT PM CDT Eusebio Haines MD LAB_1 Performing Organization Address [facility]/ZIP Code Phon e Number [facility] [address] [place] [phone] (ABNORMAL) C Reactive Protein (12/01/2019 3:42 PM CDT) athologist Signature C-Reactive 1.5 (H) 0.0 - 0.7 12/01/2019 [facility] Protein mg/dL 4:40 PM CDT LABORATORY Specimen Anatomical Collection Method / Collection Time Recei peña Time (Source) Location / Volume Laterality Blood Venipuncture / 12/01/2019 3:42 12/01/2019 3:42 Unknown PM CDT PM CDT Eusebio Haines MD LAB_1 Performing Organization Address [facility] Code Phon e Number [facility] [address] [place] [phone] Vedolizumab Quantitation with Reflex to Antibodies (12/01/2019 3:42 PM CDT) athologist Signature Vedolizumab 20.8 mcg/mL 12/05/2019 [facility] Quantitation 3:00 PM CDT LAB Comment: For concentrations of vedolizumab less t palacio or equal to 15.0 mcg/mL, reflex testing for antibodi [id number] will be performed. REFERENCE VALUE------ Lower limit of quantitation = 2.0 mcg/mL ADDITIONAL INFORMATIO N This test was developed and its performa nce characteristics determined by [facility] in a manner co nsistent with CLIA requirements. This test has not been nicho ared or approved by the U.S. Food and Drug Administration. Test Performed by: [facility] [address] [place], [place] [address] Card Filer: Sergio Ashby M.D. Ph. 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
--- OUTSIDE RECORDS SUMMARY | 2022-05-09 19:21 | XMS_ITS | Encounter Summary ---
:1975 Author Organization [facility] Address [address], [place] [address] Care Team Providers Name Role Phone Sheeba Castillo APRN, CNP Primary Care Provider [phone] Reason for Visit Reason Comments Prior Authorization For Medication entyvio Encounter Details Date Type Department Care Team Description 09/04/2019 Telephone Specialty Center [address] Sravan Haines MD Prior Authorization For Gastroenterology [address] Medication (entyvio) [address] 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 Please start the relevant PA process to get this approved. Thanks. documented in this encounter Plan of Treatment Upcoming Encounters Date Type Specialty Care Team Description 05/12/2022 Hospital Encounter Chemo Therapy/Infusion Services 09/15/2022 Telemedicine Gastroenterology Eusebio Haines MD [address] [place] [address] documented as of this encounter Visit Diagnoses Not on filedocumented in this encounter Care Teams Manager General Relationship Specialty Start Date End Date Sheeba Castillo, RUDY, SCRAP DROP CRANE OPERATOR PCP - General Nurse Practitioner 07/20/16 [address] [place] Dinh [address] documented as of this encounter
--- OUTSIDE RECORDS SUMMARY | 2022-05-09 19:21 | XMS_ITS | Encounter Summary ---
:1975 Author Organization [facility] Address [address], [place] [address] Care Team Providers Name Role Phone Sheeba Castillo APRN, ORNAMENTAL PAINTER Primary Care Provider [phone] Reason for Referral (Routine) - Closed Specialty Diagnoses / Procedures Referred By Contact Refer red To Contact Diagnoses Left sided ulcerative (chronic) colitis (HRC) Other ulcerative colitis with rectal bleeding (HRC) History of Clostridioides difficile colitis Eusebio Haines MD Procedures Flexible Sigmoidoscopy [address] [place], [place] [address] Referral ID Status Reason Start Date Expiration Date Visits Requ ested Visits Authorized [id number] Closed 08/29/2019 11/27/2020 1 1 Reason for Visit (Routine) - Closed Specialty Diagnoses / Procedures Referred By Contact Refer red To Contact Diagnoses Left sided ulcerative (chronic) colitis (HRC) Other ulcerative colitis with rectal bleeding (HRC) History of Clostridioides difficile colitis Eusebio Haines MD Procedures Flexible Sigmoidoscopy [address] [employer] [place], [place] [address] Referral ID Status Reason Start Date Expiration Date Visits Requ ested Visits Authorized [id number] Closed 08/29/2019 11/27/2020 1 1 Encounter Details Date Type Department Care Team Description 09/01/2019 [facility] Wes Parada Ulcerative re ctosigmoiditis with rectal bleeding (HRC) (Primary Dx); Encounter Gastroenterology MD Ivan Left sided ulcerative (chronic) colitis (HRC); Endoscopy Procedures [address] Other ulcerative colitis wit h rectal bleeding (HRC); [address] History of Clostridioides [place] [address] [facility] [place] [address] Social History Tobacco Use Types Packs/Day Years Used Date Smoking Tobacco: Former Cigarettes 0.3 15 Quit : 04/25/2015 Smokeless Tobacco: Never Alcohol Use Standard Drinks/Week Comments Yes 3 (1 standard drink = 0.6 oz pure alcoho l) 3 drinks a week Sex Assigned at Date Recorded Female 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 MIT Мария Kim RN - 09/01/2019 11:30 AM [...] scope was passed under direct vision. The [id number] was introduced through the anus and advanced [...] previously scheduled. Procedure Code(s): --- Professional --- 88077, Sigmoidoscopy, flexible; with biopsy, single or multiple G0500, Moderate sedation services provided by the same physician or other qualified health manager career performing a gastrointestinal endoscopic service that sedation supports, requiring the presence of an independent trained observer to assist in the monitoring of the patient's level of consciousness and physiological status; initial 15 minutes of intra-service time; patient age 5 years or older (additional time may be reported with [address], as appropriate) Diagnosis Code(s): --- Professional --- K51.50, Left sided colitis without complications CPT copyright 2018 [employer]. All rights reserved. The codes documented in this report are preliminary and upon button buttonhole marker review may be revised to meet current compliance requirements. Wes Parada MD 09/01/2019 12:29:01 PM This document has been electronically signed. Number of Addenda: 0 Note Initiated On: 09/01/2019 11:41 AM Endoscopy Report documented in this encounter Plan of Treatment Upcoming Encounters Date Type Specialty Care Team Description 05/12/2022 Hospital Encounter Chemo Therapy/Infusion Services 09/15/2022 Telemedicine Gastroenterology Eusebio Haines MD [address] [place] [address] documented as of this encounter Procedures Procedure [...] Component Value Ref Test Analysis Performed At [facility] gist Range Method Time Signature Case Report Surgical Pathology ?Case: [id number] ? 09/03/2019 [facility] Authorizing Provider: ??Wes De Oliveira MD ? Collected: ? 09/01/2019 12:04 PM ? 12:45 PM LABORATOR Y Ordering Location: ? [place] ? Received: ?09/01/2019 12:50 PM ? CDT ? Gastroenterology Endoscopy ? Procedures ? Pathologist: ? Ramiro Renae MD ? Specimens: ?? A) - Colon, de scending ? B) - Mondamin n, rectum ? FINAL A. Colon, descending, biopsy: 09/03/2019 [facility] Electronically DIAGNOSIS ?? No diagnostic abnormality 12:45 [...] fragments, averaging 0.2 cm. The spe 09/03/2019 [facility] Description cimen is filtered and entirely submitted [...] 12:45 PM LABORATORY CDT Microscopic Microscopic 09/03/2019 [facility] Description examination is 12:45 PM LABORATORY performed. CDT Embedded 09/03/2019 [facility] Images 12:45 PM LABORATORY CDT Specimen Anatomical Collection Method Collection Time Receive d Time (Source) Location / / Volume Laterality Tissue COLON STRUCTURE / 09/01/2019 12:04 2019 Unknown PM CDT 12:50 PM CDT Tissue specimen COLON STRUCTURE / 09/01/2019 12:04 02/2020 (specimen) Unknown PM CDT 12:50 PM CDT Wes Parada MD LAB PATHOLOGY Performing Organization Address City/State/ZIP Code Phon e Number [facility] [address] [place] [address] Flexible Sigmoidoscopy (09/01/2019 11:41 AM CDT) Specimen [...] PCF-H 190DL-06 was introduced ? through t juliet garcia and advanced to the ? splenic f [...] Code(s): ?? --- Professional - -- ? 95898, Si gmoidoscopy, flexible; with ? biopsy, s marcos or multiple ? G0500, Mo derate sedation services ? provided by the same physician or ? other [facility] health care ? professio nal performing [...] time may ? be [place] with [address], as ? appropria te) Diagnosis Code(s): ?? --- Professional - -- ? K51.50, L eft sided colitis without ? complicat ions CPT copyright 2018 [employer]. All rights reserved. The codes documented in this report are preliminary and upon button buttonhole marker review may be revised to meet current [...] scope was passed under direct vision. The [id number] was introduced through the anus and advanced [...] previously scheduled. Procedure Code(s): --- Professional --- 39635, Sigmoidoscopy, flexible; with biopsy, single or multiple G0500, Moderate sedation services provided by the same physician or other qualified health manager career performing a gastrointestinal endoscopic service that sedation supports, requiring the presence of an independent trained observer to assist in the monitoring of the patient's level of consciousness and physiological status; initial 15 minutes of intra-service time; patient age 5 years or older (additional time may be reported with 66201, as appropriate) Diagnosis Code(s): --- Professional --- K51.50, Left sided colitis without complications CPT copyright 2018 [employer]. All rights reserved. The codes documented in this report are preliminary and upon button buttonhole marker review may be revised to meet current compliance requirements. Wes Parada MD 09/01/2019 12:29:01 PM This document has been electronically si gned. Number of Addenda: 0 Note Initiated On: 09/01/2019 11:41 AM Endoscopy Report Eusebio Haines MD PN [facility] PROCEDURE ORDERABLES Performing Organization Address City/State/ZIP Code Phon e Number [facility] ([facility]) [facility] ([facility]) [place], [place] Test Screen Urine (09/01/2019 11:11 AM CDT) P athologist Signature HCG, Urine Negative Negative 09/01/2019 [place] 11:32 AM CDT LABORATORY Specimen Anatomical Collection Method Collection Time Receive d Time (Source) Location / / Volume Laterality Urine Non-blood 09/01/2019 11:11 09/01/2019 Collection / AM CDT 11:11 AM CDT Unknown Wes Parada MD LAB_1 Performing Organization Address City/State/ZIP Code Phon e Number [facility] [address] [place] [address] documented in this encounter [...] Intravenous, PRN, Pain, moderate sedation, Starting on Sun09/01/19 at 1146, Until Sun09/22/19 [...] Guide. documented in this encounter Care Teams Terrazzo Laborer Relationship Specialty Start Date End Date Sheeba Castillo APRN, ORNAMENTAL PAINTER PCP - General Nurse Practitioner 07/20/16 [address] [address] [place] [address] documented as of this encounter
--- OUTSIDE RECORDS SUMMARY | 2022-05-09 19:21 | XMS_ITS | Encounter Summary ---
:1975 Author Organization [facility] Address [address] [place] [address] Care Team Providers Name Role Phone Sheeba Castillo APRN, CNP Primary Care Provider [phone] Reason for Visit Reason Comments Infusion Infusion Therapy Plan (Routine) - Authorized Specialty Diagnoses / Procedures Referred By Contact Refer red To Contact Diagnoses Other ulcerative colitis with rectal bleeding (HRC) Eusebio Haines MD [facility] [address] [place], [place] [address] [place] [address] Phone: Fax: Referral ID Status Reason Start Date Expiration Date Visits V isits Requested Authorized [id number] Authorized 09/04/2019 07/24/2022 999 999 Encounter Details Date Type Department Care Team Description 09/22/2019 Hospital Encounter [facility] Jared Cazares MD Other ulcerative Center [address] colitis with rectal [address] bleeding (HRC) Drive [place], [place] (Primary Dx) [place] [phone] Social History Tobacco Use Types Packs/Day Years Used Date Smoking Tobacco: Former Cigarettes 0.3 15 Quit : 04/25/2015 Smokeless Tobacco: Never Alcohol Use Standard Drinks/Week Comments Yes 3 (1 standard drink = 0.6 oz pure alcoho l) 3 drinks a week Sex Assigned at Date Recorded Female 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
--- OUTSIDE RECORDS SUMMARY | 2022-05-09 19:21 | XMS_ITS | Encounter Summary ---
:1975 Author Organization [employer] Address [address], [place] [address] Care Team Providers Name Role Phone Sheeba Castillo APRN, SIERRA Primary Care Provider [phone] Encounter Details Date Type Department Care Team Description 11/28/2019 Lab Visit [place] [facility] Routine general medical [address] [facility] [place] [address] facility (Primary Dx) [phone] Social History Tobacco Use Types Packs/Day Years Used Date Smoking Tobacco: Former Cigarettes 0.3 15 Quit : 04/25/2015 Smokeless Tobacco: Never Alcohol Use Standard Drinks/Week Comments Yes 3 (1 standard drink = 0.6 oz pure alcoho l) 3 drinks a week Sex Assigned at Date Recorded Female 05/09/2021 7:19 PM BARREL MARKER documented as of this encounter Plan of Treatment Upcoming Encounters Date Type Specialty Care Team Description 05/12/2022 Hospital Encounter Chemo Therapy/Infusion Services 09/15/2022 Telemedicine Gastroenterology Eusebio Haines MD [address] [place], [place] [address] documented as of this encounter Procedures Procedure Name Priority Date/Time Associated Diagnosis Comme nts CONTAINER TEST Routine 11/28/2019 12:16 PM Routine general Res ults for this CDT medical examination at [facility] are in health care facility the res ults section. documented in this encounter Results CONTAINER TEST (11/28/2019 12:16 PM CDT) P athologist Signature Container Done 11/28/2019 [facility] Given 2:00 PM CDT LABORATORY Specimen Anatomical Collection Method Collection Time Receive d Time (Source) Location / / Volume Laterality Other Specimen 11/28/2019 12:16 0 Type PM CDT 12:16 PM CDT Eusebio Haines MD LAB_1 Performing Organization Address City/State/ZIP Code Phon e Number [facility] [address] [place] [address] documented in this encounter Visit Diagnoses Diagnosis Routine general medical examination at [facility] facility - Primary Routine general medical examination at a [facility] care facility documented in this encounter Care Teams Lead Generator Relationship Specialty Start Date End Date Sheeba Castillo APRN, LOCKSMITH HELPER PCP - General Nurse Practitioner 07/20/16 [address] [place] [phone] documented as of this encounter
--- OUTSIDE RECORDS SUMMARY | 2022-05-09 19:21 | XMS_ITS | Encounter Summary ---
:1975 Author Organization [employer] Address [address] [place] [address] Care Team Providers Name Role Phone Sheeba Castillo APRN, VINEYARD WORKER Primary Care Provider [phone] Reason for Visit Reason Comments Infusion Infusion Therapy Plan (Routine) - Closed Specialty Diagnoses / Procedures Referred By Contact Refer red To Contact Diagnoses Ulcerative rectosigmoiditis with rectal bleeding (HRC) Eileen Bernabe, [facility] BLUEPRINT MAKER, VINEYARD WORKER [address] [address] [place] [address] [place] [address] Referral ID Status Reason Start Date Expiration Date Visits Requ ested Visits Authorized [id number] Closed 08/07/2019 09/23/[phone] Encounter Details Date Type Department Care Team Description 08/08/2019 Hospital Encounter [facility] [place] [address] rectal bleeding (HRC) [place] [address] (Primary Dx) [phone] Social History Tobacco Use Types Packs/Day Years Used Date Smoking Tobacco: Former Cigarettes 0.3 15 Quit : 04/25/2015 Smokeless Tobacco: Never Alcohol Use Standard Drinks/Week Comments Yes 3 (1 standard drink = 0.6 oz pure alcoho l) 3 drinks a week Sex Assigned at Date Recorded Female 05/09/2021 7:19 PM ENGRAVING OPERATOR documented as of this encounter Last Filed Vital Signs Vital Sign Reading Time Taken Comments Blood Pressure 130/82 08/08/2019 1:05 PM ENGRAVING OPERATOR Pulse 93 08/08/2019 1:05 PM ENGRAVING OPERATOR Temperature 36.6 ??C (97.8 ??F) 08/08/2019 1:05 PM ENGRAVING OPERATOR Respiratory Rate - - Oxygen Saturation 100% 08/08/2019 1:05 PM ENGRAVING OPERATOR Inhaled Oxygen Concentration - - Weight [...] next infusion as scheduled in 8 weeks. AVING OPERATOR documented in this encounter Plan of Treatment Upcoming Encounters Date Type Specialty Care Team Description 05/12/2022 Hospital Encounter Chemo Therapy/Infusion Services 09/15/2022 Telemedicine Gastroenterology Eusebio Haines MD [address] [place], [place] [id number] documented as of this encounter Visit Diagnoses Diagnosis 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 documented in this encounter Administered Medications Inactive Administered Medications - up to 3 most recent administrations Medication Order MAR Action Action Date Dose Rate Site inFLIXimab (REMICADE) 900 mg in Started 08/08/2019 1:12 PM ENGRAVING OPERATOR 900 mg sodium chloride 0.9 % 250 mL IVPB 900 mg (rounded from 857 mg = 10 mg/kg ? 85.7 kg), Intravenous, ONCE, On Sun08/08/19 at 1315, For 1 dose, Dose beginning at week 14 for maintenance infusions. documented in this encounter Care Teams Manufacturing Baker Relationship Specialty Start Date End Date Sheeba Castillo, BLUEPRINT MAKER, VINEYARD WORKER PCP - General Nurse Practitioner 07/20/16 [address] [place] [address] documented as of this encounter
--- OUTSIDE RECORDS SUMMARY | 2022-05-09 19:21 | XMS_ITS | Encounter Summary ---
:1975 Author Organization [facility] Address [address], [place] [address] Care Team Providers Name Role Phone Sheeba Castillo APRN, SIERRA Primary Care Provider [phone] Encounter Details Date Type Department Care Team Description 12/03/2019 Lab Visit [place] [facility] Ulcerative rectosigmoiditis with rectal bleeding (HRC); [address] [facility] Immunosuppressed status (HRC ) [place] [address] Social History Tobacco Use Types Packs/Day Years Used Date Smoking Tobacco: Former Cigarettes 0.3 15 Quit : 04/25/2015 Smokeless Tobacco: Never Alcohol Use Standard Drinks/Week Comments Yes 3 (1 standard drink = 0.6 oz pure alcoho l) 3 drinks a week Sex Assigned at Date Recorded Female 05/09/2021 7:19 PM BUTTONHOLER documented as of this encounter Plan of Treatment Upcoming Encounters Date Type Specialty Care Team Description 05/12/2022 Hospital Encounter Chemo Therapy/Infusion Services 09/15/2022 Telemedicine Gastroenterology Eusebio Haines MD [address] [place], [place] [address] documented as of this encounter Procedures Procedure [...] stain for parasites (12/02/2019 7:51 PM CDT) Local Eye Site Method Time Signature Cyclospora Negative Negative 12/04/2019 [facility] Stain 10:21 AM CDT LABORATORIES Comment: A single negative result does not rule o ut the possibility of a parasitic infection. TEST INFORMATION: The parasitology stain is a modified acid fast stain that detects Cryptosporidium, Cycl ospora and Cystoisospora. Performed by [facility], [address] [place] [id number] [email or web address], Romulo Pritchett MD, Lab. Director Specimen Anatomical Collection Method Collection Time Receive d Time (Source) Location / / Volume Laterality Stool 12/02/2019 7:51 PM 0 8:24 CDT AM CDT Eusebio Haines MD LAB_1 Performing Organization Address City/State/ZIP Code Phon e Number [facility] [address] [place] [phone] Microsporidia stain (12/02/2019 7:51 PM CDT) Local Eye Site Method Time Signature Microsporidia Negative Negative 12/04/2019 [facility] Stain 2:54 PM CDT LABORATORIES Comment: A single negative result does not rule o ut the possibility of a microsporidia infection. Performed by [facility], [address] [facility] [place] [address] [email or web address], Romulo Pritchett MD, Lab. Director Specimen Anatomical Collection Method Collection Time Receive d Time (Source) Location / / Volume Laterality Stool 12/02/2019 7:51 PM 0 8:24 CDT AM CDT Eusebio Haines MD LAB_1 Performing Organization Address City/[facility]/ZIP Code Phon e Number [facility] [address] [place], [place] [phone] Ova & Parasite Exam (12/02/2019 4:30 PM CDT) [facility] Method Time Signature Ova and No Parasites No Parasites [...] Performing Organization Address City/[facility]/ZIP Code Phon e Number [facility] [address] [address] Enteric Parasite PCR (Giardia, Cryptosporidium, E.histolytica) (12/02/2019 4:30 PM CDT) [facility] Method Time Signature Cryptosporidium Not Not 12/05/2019 [...] PM 0 8:24 CDT AM CDT Narrative [facility] - 12/05/2019 2:22 PM CDT Methodology: Test performed by qualitative real-time PCR If stool PCR assays are negative and anushka rrhea persists for more than 14 days, consider stool examination for Ova and Parasites per Smart Set Eusebio Haines MD LAB_1 Performing Organization Address City/State/ZIP Code Phon e Number [facility] [address] [phone] documented in this encounter Visit Diagnoses Diagnosis Ulcerative rectosigmoiditis with rectal bleeding (HRC) Immunosuppressed status (HRC) Unspecified disorder of immune mechanism documented in this encounter Care Teams Project Associate Relationship Specialty Start Date End Date Sheeba Castillo, SNOUT PULLER, CURRICULUM WRITER PCP - General Nurse Practitioner 07/20/16 [address] [address] [place] [address] documented as of this encounter
--- OUTSIDE RECORDS SUMMARY | 2022-05-09 19:21 | XMS_ITS | Encounter Summary ---
:1975 Author Organization [employer] Address [address] [place] [address] Care Team Providers Name Role Phone Sheeba Castillo APRN, CNP Primary Care Provider [phone] Reason for Visit Reason Comments Infusion Infusion Therapy Plan (Routine) - Authorized Specialty Diagnoses / Procedures Referred By Contact Refer red To Contact Diagnoses Other ulcerative colitis with rectal bleeding (HRC) Eusebio Haines MD [facility] [address] [place], [place] [address] [place] [address] Phone: Fax: Referral ID Status Reason Start Date Expiration Date Visits V isits Requested Authorized [id number] Authorized 09/04/2019 07/24/[phone] Encounter Details Date Type Department Care Team Description 09/10/2019 Hospital Encounter [facility] Other ulcerative [address] [facility] [place] [address] bleeding (HRC) (Primary [phone] Dx) Social History Tobacco Use Types Packs/Day Years Used Date Smoking Tobacco: Former Cigarettes 0.3 15 Quit : 04/25/2015 Smokeless Tobacco: Never Alcohol Use Standard Drinks/Week Comments Yes 3 (1 standard drink = 0.6 oz pure alcoho l) 3 drinks a week Sex Assigned at Date Recorded Female 05/09/2021 7:19 PM COMBAT RIFLE 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
--- OUTSIDE RECORDS SUMMARY | 2022-05-09 19:21 | XMS_ITS | Encounter Summary ---
:1975 Author Organization [facility] Address [address] [place] [address] Care Team Providers Name Role Phone Sheeba Castillo APRN, SIERRA Primary Care Provider [phone] Encounter Details Date Type Department Care Team Description 08/29/2019 Lab Visit [facility] examination in Laboratory population survey (Primary [address] [employer]. Dx) [place] [address] Social History Tobacco Use Types Packs/Day Years Used Date Smoking Tobacco: Former Cigarettes 0.3 15 Quit : 04/25/2015 Smokeless Tobacco: Never Alcohol Use Standard Drinks/Week Comments Yes 3 (1 standard drink = 0.6 oz pure alcoho l) 3 drinks a week Sex Assigned at Date Recorded Female 05/09/2021 7:19 PM HEAD STRENGTH AND CONDITIONING COACH documented as of this encounter Plan of Treatment Upcoming Encounters Date Type Specialty Care Team Description 05/12/2022 Hospital Encounter Chemo Therapy/Infusion Services 09/15/2022 Telemedicine Gastroenterology Eusebio Haines MD [address] [place], [place] [address] documented as of this encounter Procedures Procedure Name Priority Date/Time Associated Diagnosis Comme nts CONTAINER TEST Routine 08/29/2019 9:10 AM Health examination i n Results for this HEAD STRENGTH AND CONDITIONING COACH population survey procedure are in the results section. documented in this encounter Results CONTAINER TEST (08/29/2019 9:10 AM HEAD STRENGTH AND CONDITIONING COACH) P athologist Signature Container Done 08/29/2019 [facility] Given 12:00 PM HEAD STRENGTH AND CONDITIONING COACH LABORATORY Specimen Anatomical Collection Method Collection Time Receive d Time (Source) Location / / Volume Laterality Other Specimen 08/29/2019 9:10 AM 020 Type HEAD STRENGTH AND CONDITIONING COACH 10:57 AM HEAD STRENGTH AND CONDITIONING COACH Eusebio Haines MD LAB_1 Performing Organization Address City/State/ZIP Code Phon e Number [facility] [address] [place] [address] documented in this encounter Visit Diagnoses Diagnosis Health examination in population survey - Primary documented in this encounter Care Teams Transmission Specialist Relationship Specialty Start Date End Date Sheeba Castillo APRN, TEXTILE DESIGNER PCP - General Nurse Practitioner 07/20/16 [address] [place] [id number] documented as of this encounter
--- OUTSIDE RECORDS SUMMARY | 2022-05-09 19:21 | XMS_ITS | Encounter Summary ---
:1975 Author Organization [employer] Address [address] [place] [address] Care Team Providers Name Role Phone Sheeba Castillo APRN, CNP Primary Care Provider [phone] Reason for Visit Reason Comments Infusion Infusion Therapy Plan (Routine) - Authorized Specialty Diagnoses / Procedures Referred By Contact Refer red To Contact Diagnoses Other ulcerative colitis with rectal bleeding (HRC) Eusebio Haines MD [facility] [address] [place], [place] [address] [place] [address] Phone: Fax: Referral ID Status Reason Start Date Expiration Date Visits V isits Requested Authorized [id number] Authorized 09/04/2019 07/24/2022 999 999 Encounter Details Date Type Department Care Team Description 12/03/2019 Hospital Encounter [facility] Other ulcerative [address] [facility] [place] [address] bleeding (HRC) (Primary [phone] Dx) Social History Tobacco Use Types Packs/Day Years Used Date Smoking Tobacco: Former Cigarettes 0.3 15 Quit : 04/25/2015 Smokeless Tobacco: Never Alcohol Use Standard Drinks/Week Comments Yes 3 (1 standard drink = 0.6 oz pure alcoho l) 3 drinks a week Sex Assigned at Date Recorded Female 05/09/2021 7:19 PM HYDROLOGY TEACHER documented as of this encounter Last Filed [...] Services 09/15/2022 Telemedicine Gastroenterology Eusebio Haines MD [address] [place] [address] documented as of this encounter Visit Diagnoses [...] certified documented in this encounter Care Teams Pc Analyst Relationship Specialty Start Date End Date Sheeba Castillo, ENGINEER REMOTE CONTROL DIESEL, INFORMATION SYSTEMS ANALYST PCP - General Nurse Practitioner 07/20/16 [address] [place] [address] documented as of this encounter
--- OUTSIDE RECORDS SUMMARY | 2022-05-09 19:21 | XMS_ITS | Encounter Summary ---
:1975 Author Organization [employer] Address [address] [place] [address] Care Team Providers Name Role Phone Sheeba Castillo APRN, GOVERNMENT SERVICES PROFESSIONAL Primary Care Provider [phone] Reason for Visit Reason Comments UPDATE Encounter Details Date Type Department Care Team Description 08/25/2019 Telephone [facility] [address] A PRN, UPDATE Gastroenterology GOVERNMENT SERVICES PROFESSIONAL [address] [place], [place] [phone] [place], [place] [phone] (Wo rk) Social History Tobacco Use Types Packs/Day Years Used Date Smoking Tobacco: Former Cigarettes 0.3 15 Quit : 04/25/2015 Smokeless Tobacco: Never Alcohol Use Standard Drinks/Week Comments Yes 3 (1 standard drink = 0.6 oz pure alcoho l) 3 drinks a week Sex Assigned at Date Recorded Female 05/09/2021 7:19 PM ORGANIC CHEMISTRY TEACHER documented as of this encounter Nursing Notes Charles Duran RN - 08/25/2019 4:20 PM CST Patient calling back, given messages below. Will continue with current plan of treatment until she sees Dr Haines later this week. NIC CHEMISTRY TEACHER Manfred Azevedo RN - 08/25/2019 1:20 PM CST Left message to call back NIC CHEMISTRY TEACHER Faye Hinojosa APRN, CNP - 08/25/2019 12:15 PM CST Addendum to below - I see she is scheduled with Dr. Haines on 08/29/2019. That is good, keep appt. NIC CHEMISTRY TEACHER Faye Hinojosa APRN, CNP - 08/25/2019 12:13 PM CST I sent through prednisone. She canceled her appt with me this week. I think she needs to establish with GI MD, next available to determine next steps as she may be failing Remicade. NIC CHEMISTRY TEACHER Manfred Azevedo RN - 08/25/2019 12:03 PM [...] lunch. Denies fever. Reports overall feeling miserable. NIC CHEMISTRY TEACHER documented in this encounter Plan of Treatment Upcoming Encounters Date Type Specialty Care Team Description 05/12/2022 Hospital Encounter Chemo Therapy/Infusion Services 09/15/2022 Telemedicine Gastroenterology Eusebio Haines MD [address] [place] [address] documented as of this encounter Visit Diagnoses Not on filedocumented in this encounter Care Teams Netting Inspector Relationship Specialty Start Date End Date Sheeba Castillo APRN, GOVERNMENT SERVICES PROFESSIONAL PCP - General Nurse Practitioner 07/20/[address] [place] [address] documented as of this encounter
--- OUTSIDE RECORDS SUMMARY | 2022-05-09 19:21 | XMS_ITS | Encounter Summary ---
:1975 Author Organization [employer] Address [address], [place] [address] Care Team Providers Name Role Phone Sheeba Castillo APRN, CNP Primary Care Provider [phone] Reason for Visit Reason Comments Refill Encounter Details Date Type Department Care Team Description 12/02/2019 Refill [facility] [address] APRN, CNP Refill Gastroenterology [address] Rick [address] [place] [address] [place], [place] [address] (Wo rk) Social History Tobacco Use Types Packs/Day Years Used Date Smoking Tobacco: Former Cigarettes 0.3 15 Quit : 04/25/2015 Smokeless Tobacco: Never Alcohol Use Standard Drinks/Week Comments Yes 3 (1 standard drink = 0.6 oz pure alcoho l) 3 drinks a week Sex Assigned at Date Recorded Female 05/09/2021 7:19 PM PURCHASING MANAGER documented as of this encounter Nursing [...] Services 09/15/2022 Telemedicine Gastroenterology Eusebio Haines MD [address] [place], [place] [address] documented as of this encounter Visit Diagnoses Not on filedocumented in this encounter Care Teams Legal Clerk Relationship Specialty Start Date End Date Sheeba Castillo, SECTION GANG, TAKER OFF HEMP FIBER PCP - General Nurse Practitioner 07/20/16 [address] [place] [address] documented as of this encounter
--- OUTSIDE RECORDS SUMMARY | 2022-05-09 19:21 | XMS_ITS | Encounter Summary ---
:1975 Author Organization [employer] Address [address] [place] [address] Care Team Providers Name Role Phone Sheeba Castillo APRN, SIERRA Primary Care Provider [phone] Reason for Referral (Routine) - Closed Specialty Diagnoses / Procedures Referred By Contact Refer red To Contact Diagnoses Left sided ulcerative (chronic) colitis (HRC) Other ulcerative colitis with rectal bleeding (HRC) History of Clostridioides difficile colitis Eusebio Haines MD Procedures Flexible Sigmoidoscopy [address] [place], [place] [address] Referral ID Status Reason Start Date Expiration Date Visits Requ ested Visits Authorized [id number] Closed 08/29/2019 11/27/2020 1 1 SANDER Reason for Visit Reason Comments Follow-up Encounter Details Date Type Department Care Team Description 08/29/2019 Office Visit Specialty Center Eusebio Haines Left aiden ed ulcerative (chronic) colitis (HRC) (Primary Dx); [address] Immunosuppression due to drug therapy; Gastroenterology [address] Other ulcerative colitis wit h rectal bleeding (HRC); [address]emat[address]; Blvd[address] [place], [place] History of Clostridioides di fficile colitis [facility] [address] [place] [id number] Social History Tobacco Use Types Packs/Day Years Used Date Smoking Tobacco: Former Cigarettes 0.3 15 Quit : 04/25/2015 Smokeless Tobacco: Never Alcohol Use Standard Drinks/Week Comments Yes 3 (1 standard drink = 0.6 oz pure alcoho l) 3 drinks a week Sex Assigned at Date Recorded Female 05/09/2021 7:19 PM WET SANDER documented as of this encounter Last Filed Vital Signs Vital Sign Reading Time Taken Comments Blood Pressure 159/96 08/29/2019 7:55 AM WET SANDER Pulse 100 08/29/2019 7:55 AM WET SANDER Temperature - - Respiratory Rate 16 08/29/2019 7:55 AM WET SANDER Oxygen Saturation - - Inhaled Oxygen Concentration - - Weight 85.2 kg (187 lb 12.8 oz) 08/29/2019 7:55 AM WET SANDER Height - - Body Mass Index 29.41 04/30/2019 7:03 PM WET SANDER documented in this encounter Patient Instructions Patient [...] colleague as to the status of your [facility] paperwork. As always, if he develops severe symptoms such as abdominal pain, abdominal distention, fevers, chills, lightheadedness or other signsof dehydration, you should present to the emergency room immediately for further evaluation and treatment. SANDER documented in this encounter Progress Notes Eusebio Haines MD - 08/29/2019 7:50 AM CST GI Clinic Consult Idania Duarte MR# [id number] [facility]# [id number] Date of Visit: 08/29/19 Idania Duarte is [...] her regimen. 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 The US-[id number]-04 was introduced through the anus and advanced [...] 09/15/2022 Telemedicine Gastroenterology Eusebio Haines MD [address] [place] [address] documented as of this encounter Results Flexible [...] colitis Providers: ? Wes eldridge MD, Lenora Hoff, ? RN Referring MD: ?Eusebio Haines MD Medicines: ? Midazolam 2 mg IV, Fentanyl 100 ? microgram s IV Complications: ? No immediate com plications. Procedure: ? After obtainin g informed consent, the ? scope was passed under direct vision. ? The [facility] 190DL-06 was introduced ? through t he [...] Code(s): ?? --- Professional - -- ? 10225, Si gmoidoscopy, flexible; with ? biopsy, s [...] time [place] ? [place] [address], as ? appropria te) Diagnosis Code(s): ?? --- Professional - -- ? K51.50, L eft sided colitis without ? complicat ions CPT copyright 2018 [employer]. All rights reserved. The codes documented in this report are preliminary and upon devil tender review may be revised to meet current [...] scope was passed under direct vision. The [id number] was introduced through the anus and advanced [...] in the rectum. This was graded as Tma Score 3 (severe, with sp ontaneous bleeding, [...] previously scheduled. Procedure Code(s): --- Professional --- 41083, Sigmoidoscopy, flexible; with biopsy, single or multiple G0500, Moderate sedation services provided by the same physician or other qualified health customer care manager performing a gastrointestinal endoscopic service that sedation supports, requiring the presence of an independent trained observer to assist in the monitoring of the patient's level of consciousness and physiological status; initial 15 minutes of intra-service time; patient age 5 years or older (additional time may be reported with [address]67[address], as appropriate) Diagnosis Code(s): --- Professional --- K51.50, Left sided colitis without complications CPT copyright 2018 [employer]. All rights reserved. The codes documented in this report are preliminary and upon devil tender review may be revised to meet current compliance requirements. Wes Parada MD 09/01/2019 12:29:01 PM This document has been electronically si gned. Number of Addenda: 0 Note Initiated On: 09/01/2019 11:41 AM Endoscopy Report Eusebio Haines MD PN GI PROCEDURE ORDERABLES Performing Organization Address City/[facility]/ZIP Code Phon e Number GI (PROVATION) GI (PROVATION) [place], [place] HCG, Quant. - Test Screen Blood (09/01/2019 11:03 AM CDT) Analysis Performed At [facility] Time Signature HCG, Serum Negative Negative 09/01/2019 [facility] 11:15 AM CDT LABORATORY Specimen Anatomical Collection Method / Collection Time Recei peña Time (Source) Location / Volume Laterality Blood Venipuncture / 09/01/2019 11:03 0 Unknown AM CDT 11:03 AM CDT Eusebio Haines MD LAB_1 Performing Organization Address [facility]/ZIP Code Phon e Number [facility] [address] [place] [address] Infliximab Activity with Reflex to Antibody (09/01/2019 11:03 AM CDT) Analysis Performed At [facility] Time Signature Infliximab 15.74 ug/mL 09/02/2019 [facility] [...] Test developed and characteristics deter mined by [facility]. See Compliance Statement B : [employer]/CS EER Infliximab Activity See Note 09/02/2019 3:17 PM CDT [facility] Comment: Access [email or web address] Report using either link below: -Direct access: [email or web address] -Enter Username, Password: [email or web address] Username: [email or web address] Password: [email or web address] Performed by [facility], [address] [place] [address] [email or web address], Romulo Pritchett MD, Lab. Director Specimen Anatomical Collection Method / Collection Time Recei peña Time (Source) Location / Volume Laterality Blood Venipuncture / 09/01/2019 11:03 0 Unknown AM CDT 11:03 AM CDT Eusebio Haines MD LAB_1 Performing Organization Address City/State/ZIP Code Phon e Number [facility] [address] [place], [place] [id number] documented in this encounter Visit Diagnoses Diagnosis [...] tis documented in this encounter Care Teams Patient Services Assistant Relationship Specialty Start Date End Date Sheeba Castillo, PROFILE MILL OPERATOR TAPE CONTROL, CORK INSULATION SETTER PCP - General Nurse Practitioner 07/20/16 [address] [place] [address] documented as of this encounter
--- OUTSIDE RECORDS SUMMARY | 2022-05-09 19:21 | XMS_ITS | Encounter Summary ---
:1975 Author Organization [employer] Address [address] [place] [address] Care Team Providers Name Role Phone Sheeba Castillo APRN, CNP Primary Care Provider [phone] Reason for Visit Reason Comments RESULTS, TEST Encounter Details Date Type Department Care Team Description 09/03/2019 Telephone [facility] Eusebio Pak MD RESULTS, TEST ENDOSCOPY [address] [place], [place] [address] [address] [place], [place] [phone] Social History Tobacco Use Types Packs/Day Years Used Date Smoking Tobacco: Former Cigarettes 0.3 15 Quit : 04/25/2015 Smokeless Tobacco: Never Alcohol Use Standard Drinks/Week Comments Yes 3 (1 standard drink = 0.6 oz pure alcoho l) 3 drinks a week Sex Assigned at Date Recorded Female 05/09/2021 7:19 PM RELIEF DRILLER documented as of this encounter Nursing Notes [...] 09/15/2022 Telemedicine Gastroenterology Eusebio Haines MD [address] [place], [place] [address] documented as of this encounter Visit Diagnoses Not on filedocumented in this encounter Care Teams Vice President For Philanthropy Relationship Specialty Start Date End Date Sheeba Castillo APRN, PACKAGING SALES CONSULTANT PCP - General Nurse Practitioner 07/20/16 [address] [place] [address] documented as of this encounter
--- OUTSIDE RECORDS SUMMARY | 2022-05-09 19:21 | XMS_ITS | Encounter Summary ---
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) Social History Tobacco Use Types Packs/Day Years Used Date Smoking Tobacco: Former Cigarettes 0.3 15 Quit : 04/25/2015 Smokeless Tobacco: Never Alcohol Use Standard Drinks/Week Comments Yes 3 (1 standard drink = 0.6 oz pure alcoho l) 3 drinks a week Sex Assigned at Date Recorded Female 05/09/2021 7:19 PM EMAIL SPECIALIST documented as of this encounter Plan of Treatment Upcoming Encounters Date Type Specialty Care Team Description 05/12/2022 Hospital Encounter Chemo Therapy/Infusion Services 09/15/2022 Telemedicine Gastroenterology Eusebio Haines MD [address] [place] [address] documented as of this encounter Procedures Procedure [...] the results with rectal bleeding section . ([facility]) History of Clostridioides difficile colitis HCG,QUALITATIVE, Routine 09/01/2019 11:03 Left sided ulcerativ e Results for this SERUM AM CDT (chronic) coliti s ([facility]) procedure are in Other ulcerative colitis the results with rectal bleeding section . ([facility]) History of Clostridioides difficile colitis documented in this encounter Results Test Screen Urine (09/01/2019 11:11 AM CDT) P athologist Signature HCG, Urine Negative Negative 09/01/2019 [facility] 11:32 AM CDT LABORATORY Specimen Anatomical Collection Method Collection Time Receive d Time (Source) Location / / Volume Laterality Urine Non-blood 09/01/2019 11:11 09/01/2019 Collection / AM CDT 11:11 AM CDT Unknown Wes Parada MD LAB_1 Performing Organization Address City/State/ZIP Code Phon e Number [facility] [address] [place] [phone] HCG, Quant. - Test Screen Blood (09/01/2019 11:03 AM CDT) Analysis Performed At [facility] Time Signature HCG, Serum Negative Negative 09/01/2019 [facility] Qual 11:15 AM CDT LABORATORY Specimen Anatomical Collection Method / Collection Time Recei peña Time (Source) Location / Volume Laterality Blood Venipuncture / 09/01/2019 11:03 0 Unknown AM CDT 11:03 AM CDT Eusebio Haines MD LAB_1 Performing Organization Address City/State/ZIP Code Phon e Number [facility] [address] [place] [phone] Infliximab Activity with Reflex to Antibody (09/01/2019 11:03 AM CDT) Analysis Performed At [facility]o logist Time Signature Infliximab 15.74 ug/mL 09/02/2019 [facility] [...] is 5 ug/mL or greater for infliximab (Feluis younger ONDINA et al, Gastroenterology 2017; 153:827-834). The AGA makes no recommendation regarding the use of rout ine, proactive therapeutic drug monitoring in adults with quiescent IBD treated with anti-TNF agents. Test developed and characteristics deter mined by [facility]. See Compliance Statement B : [employer] EER Infliximab Activity See Note 09/02/2019 3:17 PM CDT [email or web address] Comment: Access ProtAb Report using either link below: -Direct access: [email or web address] -Enter Username, Password: [email or web address] Username: [email or web address] Password: [email or web address] Performed by [facility], [address] [place] [id number] [email or web address], Romulo Pritchett MD, Lab. Director Specimen Anatomical Collection Method / Collection Time Recei peña Time (Source) Location / Volume Laterality Blood Venipuncture / 09/01/2019 11:03 0 Unknown AM CDT 11:03 AM CDT Eusebio Haines MD LAB_1 Performing Organization Address City/State/ZIP Code Phon e Number [email or web address] [address] [place] [phone] documented in this encounter Visit Diagnoses Diagnosis Left sided ulcerative (chronic) colitis (HRC) Left sided ulcerative (chronic) colitis Other ulcerative colitis with rectal ble eding (HRC) History of Clostridioides difficile coli tis Ulcerative rectosigmoiditis with rectal bleeding (HRC) documented in this encounter Care Teams Digital Media Associate Relationship Specialty Start Date End Date Sheeba Castillo, GOVERNOR ASSEMBLER, DIRECTOR OF DEMENTIA OPERATIONS PCP - General Nurse Practitioner 07/20/16 [address] [place] [address] documented as of this encounter
--- OUTSIDE RECORDS SUMMARY | 2022-05-09 19:21 | XMS_ITS | Encounter Summary ---
:1975 Author Organization [employer] Address [address] [place] [address] Care Team Providers Name Role Phone Sheeba Castillo APRN, SIERRA Primary Care Provider [phone] Reason for Visit Reason Comments Refill PIRMELLA 1/35 1-35 MG-MCG ta risa [Pharmacy Med Name: Pirmella 1/35 Oral Tablet 1-35 MG-MCG] Encounter Details Date Type Department Care Team Description 10/21/2019 Refill [facility] Iggy Hernandez MD Refill (PIRMELLA 1/[address] Reyna 1-35 MG-MCG tablet [address] [place], [place] [Pharmacy Med Name: [place] [address] Pirmella 1/35 Oral [phone] (Wo rk) Tablet 1-35 MG-MCG]) Social History Tobacco Use Types Packs/Day Years Used Date Smoking Tobacco: Former Cigarettes 0.3 15 Quit : 04/25/2015 Smokeless Tobacco: Never Alcohol Use Standard Drinks/Week Comments Yes 3 (1 standard drink = 0.6 oz pure alcoho l) 3 drinks a week Sex Assigned at Date Recorded Female 05/09/2021 7:19 PM QUALITY CONTROL HEAD documented as of this encounter Nursing [...] recent visit (in Family Practice with ESTEBAN KRISHNAMURTHY was found) Next scheduled visit: None SBP: 132 mm Hg on 05/13/2019 DBP: 83 mm Hg on 05/13/2019 Powered by [employer], Reference: [id number], 10/21/2019 7:02:14 AM CDT, Pool: LIRIANO FP REFILL ([id number]) documented in this encounter Plan of Treatment Upcoming Encounters Date Type Specialty Care Team Description 05/12/2022 Hospital Encounter Chemo Therapy/Infusion Services 09/15/2022 Telemedicine Gastroenterology Eusebio Haines MD [address] [place], [place] [address] documented as of this encounter Visit Diagnoses Diagnosis Well adult exam Routine general medical examination at a health care facility documented in this encounter Care Teams Case Aide Relationship Specialty Start Date End Date Sheeba Castillo, SUPERVISOR SHELLFISH FARMING, FINANCE ADVISOR PCP - General Nurse Practitioner 07/20/16 [address] [place] [address] documented as of this encounter
--- OUTSIDE RECORDS SUMMARY | 2022-05-09 19:21 | XMS_ITS | Encounter Summary ---
:1975 Author Organization [employer] Address [address], [place] [address] Care Team Providers Name Role Phone Sheeba Castillo APRN, SIERRA Primary Care Provider [phone] Encounter Details Date Type Department Care Team Description 12/01/2019 Lab Visit [facility] Ulcerative rectosigmoiditis with rectal bleeding (HRC); [address] [facility] Immunosuppressed status (HRC ) [place] [address] Social History Tobacco Use Types Packs/Day Years Used Date Smoking Tobacco: Former Cigarettes 0.3 15 Quit : 04/25/2015 Smokeless Tobacco: Never Alcohol Use Standard Drinks/Week Comments Yes 3 (1 standard drink = 0.6 oz pure alcoho l) 3 drinks a week Sex Assigned at Date Recorded Female 05/09/2021 7:19 PM SIDEROGRAPHER documented as of this encounter Plan of Treatment Upcoming Encounters Date Type Specialty Care Team Description 05/12/2022 Hospital Encounter Chemo Therapy/Infusion Services 09/15/2022 Telemedicine Gastroenterology Eusebio Haines MD [address] [place], [place] [address] documented as of this encounter Procedures Procedure [...] By PCR, Qualitative (12/01/2019 3:42 PM CDT) [facility] Method Time Signature CMV By PCR, Not Detected 12/04/2019 [facility] Qual 4:12 PM CDT LABORATORIES Comment: NOT DETECTED - A negative result does no t rule out the presence of PCR inhibitors in the patien t specimen or assay specific nucleic acid in concentra tions below the level of detection by the assay. INTERPRETIVE INFORMATION: Cytomegaloviru s Detection by PCR Test developed and characteristics deter mined by [employer]. See Compliance Statement A : [employer]/ Performed by [employer], [address] [place] [id number] [email or web address], Romulo Pritchett MD, Lab. Director CMV Source Plasma 12/04/2019 4:12 PM CDT [facility] Specimen Anatomical Collection Method / Collection Time Recei peña Time (Source) Location / Volume Laterality Blood OTHER / Unknown Venipuncture / 12/01/2019 3:42 020 3:42 Unknown PM CDT PM CDT Eusebio Haines MD LAB_1 Performing Organization Address City/[facility]/ZIP [facility] Phon e Number [employer] [facility] [address], [place] [phone] WBC, Blood (12/01/2019 3:42 PM CDT) athologist Signature WBC 10.1 3.5 - 10.5 12/01/2019 [facility] x10(9)/L 3:47 PM CDT LABORATORY Specimen Anatomical Collection Method / Collection Time Recei peña Time (Source) Location / Volume Laterality Blood Venipuncture / 12/01/2019 3:42 12/01/2019 3:42 Unknown PM CDT PM CDT Eusebio Haines MD LAB_1 Performing Organization Address City/State/ZIP Code Phon e Number [facility] [address] [place] [address] Platelet Count (12/01/2019 3:42 PM CDT) athologist Signature Platelets 336 150 - 450 12/01/2019 [facility] x10(9)/L 3:47 PM CDT LABORATORY Specimen Anatomical Collection Method / Collection Time Recei peña Time (Source) Location / Volume Laterality Blood Venipuncture / 12/01/2019 3:42 12/01/2019 3:42 Unknown PM CDT PM CDT Eusebio Haines MD LAB_1 Performing Organization Address [facility]/ZIP Code Phon e Number [facility] [address] [place], [place] [address] Hemoglobin (12/01/2019 3:42 PM CDT) athologist Signature Hemoglobin 14.1 12.0 - 15.5 12/01/2019 [place] g/dL 3:47 PM CDT LABORATORY Specimen Anatomical Collection Method / Collection Time Recei peña Time (Source) Location / Volume Laterality Blood Venipuncture / 12/01/2019 3:42 12/01/2019 3:42 Unknown PM CDT PM CDT Eusebio Haines MD LAB_1 Performing Organization Address [facility]/ZIP Code Phon e Number [facility] [address] [place] [address] Bilirubin Total (12/01/2019 3:42 PM CDT) athologist Signature Bilirubin, 0.3 0.2 - 1.2 12/01/2019 [place] Total mg/dL 4:40 PM CDT LABORATORY Specimen Anatomical Collection Method / Collection Time Recei peña Time (Source) Location / Volume Laterality Blood Venipuncture / 12/01/2019 3:42 12/01/2019 3:42 Unknown PM CDT PM CDT Eusebio Haines MD LAB_1 Performing Organization Address [facility]/ZIP Code Phon e Number [facility] [address] [place] [address] Alanine Aminotransferase (ALT) (12/01/2019 3:42 PM CDT) athologist Signature ALT (SGPT) 29 0 - 55 U/L 12/01/2019 [facility] 4:40 PM CDT LABORATORY Specimen Anatomical Collection Method / Collection Time Recei peña Time (Source) Location / Volume Laterality Blood Venipuncture / 12/01/2019 3:42 12/01/2019 3:42 Unknown PM CDT PM CDT Eusebio Haines MD LAB_1 Performing Organization Address City/[facility]/ZIP Code Phon e Number [facility] [address] [place] [address] Alkaline Phosphatase (ALK) (12/01/2019 3:42 PM CDT) athologist Signature Alkaline 71 40 - 150 12/01/2019 [facility] [place] Phosphatase U/L 4:40 PM CDT LABORATORY Specimen Anatomical Collection Method / Collection Time Recei peña Time (Source) Location / Volume Laterality Blood Venipuncture / 12/01/2019 3:42 12/01/2019 3:42 Unknown PM CDT PM CDT Eusebio Haines MD LAB_1 Performing Organization Address [facility] Phon e Number [facility] [address] [place] [address] Creatinine (12/01/2019 3:42 PM CDT) athologist Signature Creatinine 0.80 0.55 - 12/01/2019 [facility] 1.02 mg/dL 4:40 PM CDT LABORATORY GFR, Estimated >60 >60 12/01/2019 [place] mL/min/1.7 4:40 PM CDT LABORATORY 3m2 GFR, Est If >60 >60 12/01/2019 [facility] mL/min/1.7 4:40 PM CDT LABORATORY Togolese 3m2 Specimen Anatomical Collection Method / Collection Time Recei peña Time (Source) Location / Volume Laterality Blood Venipuncture / 12/01/2019 3:42 12/01/2019 3:42 Unknown PM CDT PM CDT Eusebio Haines MD LAB_1 Performing Organization Address City/[facility] Phon e Arian [facility] [address] [place] [address] (ABNORMAL) C Reactive Protein (12/01/2019 3:42 PM CDT) athologist Signature C-Reactive 1.5 (H) 0.0 - 0.7 12/01/2019 [facility] Protein mg/dL 4:40 PM CDT LABORATORY Specimen Anatomical Collection Method / Collection Time Recei peña Time (Source) Location / Volume Laterality Blood Venipuncture / 12/01/2019 3:42 12/01/2019 3:42 Unknown PM CDT PM CDT Eusebio Haines MD LAB_1 Performing Organization Address City/State/ZIP Code Phon e Number [facility] [address] [place] [address] Vedolizumab Quantitation with Reflex to Antibodies (12/01/2019 3:42 PM CDT) P athologist Signature Vedolizumab 20.8 mcg/mL 12/05/2019 [facility] Quantitation 3:00 PM CDT LAB Comment: For concentrations of vedolizumab less t palacio or equal to 15.0 mcg/mL, reflex testing for antibodi [id number] will be performed. REFERENCE VALUE------ Lower limit of quantitation = 2.0 mcg/mL ADDITIONAL INFORMATIO N This test was developed and its performa nce characteristics determined by [facility] in a manner co nsistent with CLIA requirements. This test has not been nicho ared or approved by the U.S. Food and Drug Administration. Test Performed by: [facility] [address] [place] [address] 33 Patient Financial Services Specialist: Sergio Ashby M.D. Ph. D.; CLIA# [id number] Specimen Anatomical Collection Method / Collection Time Recei peña Time (Source) Location / Volume Laterality Blood Venipuncture / 12/01/2019 3:42 12/01/2019 3:42 Unknown PM CDT PM CDT Eusebio Haines MD LAB_1 Performing Organization Address City/State/ZIP Code Phon e Number [facility] [place] [address] documented in this encounter Visit Diagnoses Diagnosis Ulcerative rectosigmoiditis with rectal bleeding (HRC) Immunosuppressed status (HRC) Unspecified disorder of immune mechanism documented in this encounter Care Teams Oil Field Pumper Relationship Specialty Start Date End Date Sheeba Castillo, SUPERVISOR CARTOGRAPHY, KAIAKO KURA KAUPAPA MAORI PCP - General Nurse Practitioner 07/20/16 [address] [place] [address] documented as of this encounter"
--- OUTSIDE RECORDS SUMMARY | 2022-05-09 19:21 | XMS_ITS | Encounter Summary ---
:1975 Author Organization [employer] Address [address] [place] [address] Care Team Providers Name Role Phone Sheeba Castillo APRN, SIERRA Primary Care Provider [phone] Encounter Details Date Type Department Care Team Description 08/29/2019 Lab Visit [facility] Left sided ulcerative (chron ic) colitis (HRC); [address] [facility] Other ulcerative colitis wit h rectal bleeding (HRC); [place] [address] History of Clostridioides di fficile colitis [phone] Social History Tobacco Use Types Packs/Day Years Used Date Smoking Tobacco: Former Cigarettes 0.3 15 Quit : 04/25/2015 Smokeless Tobacco: Never Alcohol Use Standard Drinks/Week Comments Yes 3 (1 standard drink = 0.6 oz pure alcoho l) 3 drinks a week Sex Assigned at Date Recorded Female 05/09/2021 7:19 PM MOUNTING MACHINE OPERATOR documented as of this encounter Plan of Treatment Upcoming Encounters Date Type Specialty Care Team Description 05/12/2022 Hospital Encounter Chemo Therapy/Infusion Services 09/15/2022 Telemedicine Gastroenterology Eusebio Haines MD [address] [place] [address] documented as of this encounter Visit Diagnoses Diagnosis Left sided ulcerative (chronic) colitis (HRC) Left sided ulcerative (chronic) colitis Other ulcerative colitis with rectal ble eding (HRC) History of Clostridioides difficile coli tis documented in this encounter Care Teams Educational Audiologist Relationship Specialty Start Date End Date Sheeba Castillo, TERRITORY ACCOUNT MANAGER, AUTOMATION TESTER PCP - General Nurse Practitioner 07/20/16 [address] [place] [address] documented as of this encounter
--- OUTSIDE RECORDS SUMMARY | 2022-05-09 19:21 | XMS_ITS | Encounter Summary ---
:1975 Author Organization [employer] Address [address] [place] [address] Care Team Providers Name Role Phone Sheeba Castillo APRN, CNP Primary Care Provider Reason for Visit Reason Comments Infusion Infusion Therapy Plan (Routine) - Authorized Specialty Diagnoses / Procedures Referred By Contact Refer red To Contact Diagnoses Other ulcerative colitis with rectal bleeding (HRC) Eusebio Haines MD [facility] [address] [place], [place] [address] [place] [address] Phone: Fax: Referral ID Status Reason Start Date Expiration Date Visits V isits Requested Authorized [id number] Authorized 09/04/2019 07/24/2022 999 999 Encounter Details Date Type Department Care Team Description 10/22/2019 Hospital Encounter [facility] Other ulcerative [address] [facility] [place] [address] bleeding (HRC) (Primary [phone] Dx) Social History Tobacco Use Types Packs/Day Years Used Date Smoking Tobacco: Former Cigarettes 0.3 15 Quit : 04/25/2015 Smokeless Tobacco: Never Alcohol Use Standard Drinks/Week Comments Yes 3 (1 standard drink = 0.6 oz pure alcoho l) 3 drinks a week Sex Assigned at Date Recorded Female 05/09/2021 7:19 PM 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 PIRMELLA 1/35 1-35 TAKE ONE TABLET BY 112 Tablet [...] Services 09/15/2022 Telemedicine Gastroenterology Eusebio Haines MD [address] [place] [address] documented as of this encounter Visit Diagnoses [...] certified documented in this encounter Care Teams Service Or Work Dispatcher Relationship Specialty Start Date End Date Sheeba Castillo, FUR DRESSER, BOX PRESS OPERATOR PCP - General Nurse Practitioner 07/20/16 [address] [place] [address] documented as of this encounter
--- OUTSIDE RECORDS SUMMARY | 2022-05-09 19:21 | XMS_ITS | Encounter Summary ---
:1975 Author Organization [employer] Address [address] [place] [address] Care Team Providers Name Role Phone Sheeba Castillo APRN, SIERRA Primary Care Provider Reason for Visit Reason Comments RESULTS, TEST Encounter Details Date Type Department Care Team Description 09/03/2019 Telephone [facility] Eusebio Haines MD RESULTS, TEST ENDOSCOPY [address] [facility] [address] [place] [address] [place], [place] [address] [phone] Social History Tobacco Use Types Packs/Day Years Used Date Smoking Tobacco: Former Cigarettes 0.3 15 Quit : 04/25/2015 Smokeless Tobacco: Never Alcohol Use Standard Drinks/Week Comments Yes 3 (1 standard drink = 0.6 oz pure alcoho l) 3 drinks a week Sex Assigned at Date Recorded Female 05/09/2021 7:19 PM SEXUAL ABUSE COUNSELLOR documented as of this encounter Nursing [...] 09/15/2022 Telemedicine Gastroenterology Eusebio Haines MD [address] [place], [place] [address] documented as of this encounter Visit Diagnoses Not on filedocumented in this encounter Care Teams Layout Operator Relationship Specialty Start Date End Date Sheeba Castillo, COWLMAN, DEPARTMENTAL SHIPPING CLERK PCP - General Nurse Practitioner 07/20/16 [address] [place] [phone] documented as of this encounter
--- OUTSIDE RECORDS SUMMARY | 2022-05-09 19:22 | XMS_ITS | Encounter Summary ---
:1975 Author Organization [employer] Address [address] [place] [address] Care Team Providers Name Role Phone Sheeba Castillo APRN, ASSISTANT TO THE VICE PRESIDENT Primary Care Provider [phone] Reason for Visit Reason Comments Refill canasa Encounter Details Date Type Department Care Team Description 07/01/2019 Telephone [facility] [address] A PRN, Refill (canasa) Gastroenterology ASSISTANT TO THE VICE PRESIDENT [address] [place], [place] [address] [place], [place] [phone] [address] (Wo rk) Social History Tobacco Use Types Packs/Day Years Used Date Smoking Tobacco: Former Cigarettes 0.3 15 Quit : 04/25/2015 Smokeless Tobacco: Never Alcohol Use Standard Drinks/Week Comments Yes 3 (1 standard drink = 0.6 oz pure alcoho l) 3 drinks a week Sex Assigned at Date Recorded Female 05/09/2021 7:19 PM BOX TOE CEMENTER documented as of this encounter Nursing Notes Charles Duran, RN - 07/01/2019 3:18 PM CST Voice mail received requesting refill for Canasa. Last office visit- 05/28/19 Next office visit- Next office visit recommended- as above Required labs- CBC, Creatinine- both were done 06/06/2019 Marked chronic- yes Refill sent in to cover until next appointment (3 months) TOE CEMENTER documented in this encounter Plan of Treatment Upcoming Encounters Date Type Specialty Care Team Description 05/12/2022 Hospital Encounter Chemo Therapy/Infusion Services 09/15/2022 Telemedicine Gastroenterology Eusebio Haines MD [address] [place], [place] [address] documented as of this encounter Visit Diagnoses Diagnosis Ulcerative pancolitis with rectal bleedi ng (HRC) - Primary documented in this encounter Care Teams Software Configuration Manager Relationship Specialty Start Date End Date Sheeba Castillo APRN, ASSISTANT TO THE VICE PRESIDENT PCP - General Nurse Practitioner 07/20/[address] [place] [address] documented as of this encounter
--- OUTSIDE RECORDS SUMMARY | 2022-05-09 19:22 | XMS_ITS | Encounter Summary ---
:1975 Author Organization [employer] Address [address] [address] Care Team Providers Name Role Phone Sheeba Castillo APRN, SIERRA Primary Care Provider [phone] Reason for Visit Reason Comments Hospital Discharge Follow-up [facility] on 04/30/19 for Ulcerative rectosigmoiditis with rectal bleeding Encounter Details Date Type Department Care Team Description 05/13/2019 Office Visit [facility] Sandro Jenkins, Acute ulcerative Medicine colitis without [address] [place] [address] [address] [place] complications ([facility]) [place] [address] [place], [place] (Primary Dx) [phone] Social History Tobacco Use Types Packs/Day Years Used Date Smoking Tobacco: Former Cigarettes 0.3 15 Quit : 04/25/2015 Smokeless Tobacco: Never Alcohol Use Standard Drinks/Week Comments Yes 3 (1 standard drink = 0.6 oz pure alcoho l) 3 drinks a week Sex Assigned at Date Recorded Female 05/09/2021 7:19 PM MANAGER DATABASE documented as of this encounter Last Filed Vital Signs Vital Sign Reading Time Taken Comments Blood Pressure 132/83 05/13/2019 4:08 PM MANAGER DATABASE Pulse 98 05/13/2019 4:08 PM MANAGER DATABASE Temperature - - Respiratory Rate - - Oxygen Saturation - - Inhaled Oxygen Concentration - - Weight 83.6 kg (184 lb 6.4 oz) 05/13/2019 4:08 PM MANAGER DATABASE Height - - Body Mass Index 28.88 04/30/2019 7:03 PM MANAGER DATABASE documented in this encounter Progress Notes Sandro Jenkins MD - 05/13/2019 4:00 PM CST SUBJECTIVE: This 44-year-old female presents for hospital follow-up. Recently admitted to [facility] 04/30-05/05/19 due to severe, persistent symptoms associated [...] Not on file Occupational History ??? 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 [...] file Gets together: Not on file Attends latter-day service: Not on file Active member of [...] History Narrative . 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 OBJECTIVE: Vital Signs: BP [...] follow up in GI clinic as scheduled. GER DATABASE documented in this encounter Plan of Treatment Upcoming Encounters Date Type Specialty Care Team Description 05/12/2022 Hospital Encounter Chemo Therapy/Infusion Services 09/15/2022 Telemedicine Gastroenterology Eusebio Haines MD [address] [place], [place] [address] documented as of this encounter Visit Diagnoses Diagnosis Acute ulcerative colitis without complic ations (HRC) - Primary documented in this encounter Care Teams Pan Puller Relationship Specialty Start Date End Date Sheeba Castillo APRN, COMPUTER AIDE PCP - General Nurse Practitioner 07/20/16 [address] [place] [id number] documented as of this encounter
--- OUTSIDE RECORDS SUMMARY | 2022-05-09 19:22 | XMS_ITS | Encounter Summary ---
:1975 Author Organization [employer] Address [address] [place] [address] Care Team Providers Name Role Phone Sheeba Castillo APRN, SIERRA Primary Care Provider [phone] Encounter Details Date Type Department Care Team Description 07/28/2019 Lab Visit [facility] Left sided ulcerative [address] [facility] (chronic) colitis (HRC) [place] [address] (Primary Dx) [phone] Social History Tobacco Use Types Packs/Day Years Used Date Smoking Tobacco: Former Cigarettes 0.3 15 Quit : 04/25/2015 Smokeless Tobacco: Never Alcohol Use Standard Drinks/Week Comments Yes 3 (1 standard drink = 0.6 oz pure alcoho l) 3 drinks a week Sex Assigned at Date Recorded Female 05/09/2021 7:19 PM SUPERVISOR VEGETABLE 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 documented in this encounter Results CONTAINER TEST (07/28/2019 12:08 PM SUPERVISOR VEGETABLE FARMING) P athologist Signature Container Done 07/28/2019 [facility] Given 2:00 PM SUPERVISOR VEGETABLE FARMING LABORATORY Specimen Anatomical Collection Method Collection Time Receive d Time (Source) Location / / Volume Laterality Other Specimen 07/28/2019 12:08 0 Type PM SUPERVISOR VEGETABLE FARMING 12:08 PM SUPERVISOR VEGETABLE FARMING Faye Felton APRN, CNP LAB_1 Performing Organization Address City/State/ZIP Code Phon e Number [facility] [address] [place] [address] documented in this encounter Visit Diagnoses Diagnosis Left sided ulcerative (chronic) colitis (HRC) - Primary Left sided ulcerative (chronic) colitis documented in this encounter Care Teams Acetylene Gas Compressor Relationship Specialty Start Date End Date Sheeba Castillo APRN, UNDERLINER PCP - General Nurse Practitioner 07/20/16 [address] [facility] [place] [address] documented as of this encounter
--- OUTSIDE RECORDS SUMMARY | 2022-05-09 19:22 | XMS_ITS | Encounter Summary ---
:1975 Author Organization [employer] Address [address] [place] [address] Care Team Providers Name Role Phone Sheeba Castillo APRN, DIGITAL MARKETING ANALYST Primary Care Provider Reason for Visit Reason Comments Infusion Infusion Therapy Plan (Routine) - Closed Specialty Diagnoses / Procedures Referred By Contact Refer red To Contact Diagnoses Ulcerative rectosigmoiditis with rectal bleeding (HRC) Eileen Bernabe, [facility] MIMEOGRAPHER, DIGITAL MARKETING ANALYST [address] [address] [place] [address] [place] [address] Referral ID Status Reason Start Date Expiration Date Visits Requ ested Visits Authorized [id number] Closed 08/07/2019 09/23/2019 999 999 Encounter Details Date Type Department Care Team Description 05/16/2019 Hospital Encounter [facility] [place] [address] [employer] rectal bleeding (HRC) [place] [address] (Primary Dx) [phone] Social History Tobacco Use Types Packs/Day Years Used Date Smoking Tobacco: Former Cigarettes 0.3 15 Quit : 04/25/2015 Smokeless Tobacco: Never Alcohol Use Standard Drinks/Week Comments Yes 3 (1 standard drink = 0.6 oz pure alcoho l) 3 drinks a week Sex Assigned at Date Recorded Female 05/09/2021 7:19 PM LION HUNTER documented as of this encounter Last Filed Vital Signs Vital Sign Reading Time Taken Comments Blood Pressure 168/95 05/16/2019 1:45 PM LION HUNTER Pulse 88 05/16/2019 1:45 PM LION HUNTER Temperature 36.7 ??C (98 ??F) 05/16/2019 1:45 PM LION HUNTER Respiratory Rate - - Oxygen Saturation - - Inhaled Oxygen Concentration - - Weight 83.5 kg (184 lb) 05/16/2019 1:45 PM LION HUNTER Height - - Body Mass Index 28.82 04/30/2019 7:03 PM LION HUNTER documented in this encounter Medications at Time [...] with no issues. 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 83.5 kg), Intravenous, ONCE, On Sun05/16/19 at 1415, For 1 dose, Week 0 dose given as inpatient at [facility]. sodium chloride 0.9% injection 10-60 mL Given 05/16/2019 4:15 PM LION HUNTER 10 mL 10-60 mL, Intravenous, PRN BEFORE&AFTER MEDICATIONS OR LAB DRAW, Line Patency, Starting on Sun05/16/19 at 1357, Until Sun05/16/19 at 1819, For 1 day documented in this encounter Care Teams Demo Specialist Relationship Specialty Start Date End Date Sheeba Castillo, MIMEOGRAPHER, DIGITAL MARKETING ANALYST PCP - General Nurse Practitioner 07/20/16 [address] [place] [id number] documented as of this encounter
--- OUTSIDE RECORDS SUMMARY | 2022-05-09 19:22 | XMS_ITS | Encounter Summary ---
:1975 Author Organization [employer] Address [address] [place] [address] Care Team Providers Name Role Phone Sheeba Castillo APRN, SIERRA Primary Care Provider [phone] Encounter Details Date Type Department Care Team Description 08/04/2019 Lab Visit [facility] Left sided ulcerative [address] [facility] (chronic) colitis (HRC) [place] [address] Social History Tobacco Use Types Packs/Day Years Used Date Smoking Tobacco: Former Cigarettes 0.3 15 Quit : 04/25/2015 Smokeless Tobacco: Never Alcohol Use Standard Drinks/Week Comments Yes 3 (1 standard drink = 0.6 oz pure alcoho l) 3 drinks a week Sex Assigned at Date Recorded Female 05/09/2021 7:19 PM PATROL DRIVER documented as of this encounter Plan of Treatment Upcoming Encounters Date Type Specialty Care Team Description 05/12/2022 Hospital Encounter Chemo Therapy/Infusion Services 09/15/2022 Telemedicine Gastroenterology Eusebio Haines MD [address] [place] [address] documented as of this encounter Procedures Procedure Name Priority Date/Time Associated Comments Diagnosis CBC AND DIFFERENTIAL Routine 08/04/2019 11:59 Left sided Res ults for this PANEL AM PATROL DRIVER ulcerative procedure are i n (chronic) colitis the result s (HRC) section. INFLIXIMAB ACTIVITY Routine 08/04/2019 11:59 Left sided Resu lts for this WITH REFLEX TO AM PATROL DRIVER ulcerative procedure are in ANTIBODY (chronic) colitis the result s (HRC) section. COMPLETE BLOOD Routine 08/04/2019 11:59 Left sided Results f or this COUNT-W/DIFF AM PATROL DRIVER ulcerative procedure are i n (chronic) colitis the result s (HRC) section. C-REACTIVE PROTEIN Routine 08/04/2019 11:59 Left sided Resul ts for this AM PATROL DRIVER ulcerative procedure are i n (chronic) colitis the result s (HRC) section. documented in this encounter Results Complete Blood Count-W/Diff (08/04/2019 11:59 AM PATROL DRIVER) P athologist Signature WBC 8.3 3.5 - 10.5 08/04/2019 [facility] x10(9)/L 12:04 PM PATROL DRIVER LABORATORY RBC 4.55 3.90 - 08/04/2019 [facility] 5.03 12:04 PM PATROL DRIVER LABORATORY x10(12)/L Hemoglobin 14.0 12.0 - 08/04/2019 [facility] 15.5 g/dL 12:04 PM PATROL DRIVER LABORATORY HCT 41.7 34.9 - 08/04/2019 [facility] 44.5 % 12:04 PM PATROL DRIVER LABORATORY MCV 91.6 80.0 - 08/04/2019 [facility] 100.0 fL 12:04 PM PATROL DRIVER LABORATORY MCH 30.8 27.6 - 08/04/2019 [facility] 33.3 pg 12:04 PM PATROL DRIVER LABORATORY MCHC 33.6 31.5 - 08/04/2019 [facility] 35.2 g/dL 12:04 PM PATROL DRIVER LABORATORY RDW 12.2 11.9 - 08/04/2019 [facility] 15.5 % 12:04 PM PATROL DRIVER LABORATORY Platelets 341 150 - 450 08/04/2019 [facility] x10(9)/L 12:04 PM PATROL DRIVER LABORATORY Automated NRBC 0 <=0 /100 08/04/2019 [facility] WBC 12:04 PM PATROL DRIVER LABORATORY Neutrophil 5.0 1.7 - 7.0 08/04/2019 [facility] Absolute 10(9)/L 12:04 PM PATROL DRIVER LABORATORY Lymphocyte 2.5 1.0 - 4.8 08/04/2019 [facility] Absolute 10(9)/L 12:04 PM PATROL DRIVER LABORATORY Monocytes 0.4 0.2 - 0.9 08/04/2019 [facility] Absolute 10(9)/L 12:04 PM PATROL DRIVER LABORATORY Eosinophil 0.2 0.0 - 0.5 08/04/2019 [facility] Absolute 10(9)/L 12:04 PM PATROL DRIVER LABORATORY Basophil 0.1 0.0 - 0.3 08/04/2019 [facility] Absolute 10(9)/L 12:04 PM PATROL DRIVER LABORATORY Immature Gran % 0.2 0.0 - 0.5 08/04/2019 [facility] % 12:04 PM PATROL DRIVER LABORATORY Specimen Anatomical Collection Method / Collection Time Recei peña Time (Source) Location / Volume Laterality Blood Venipuncture / 08/04/2019 11:59 0 Unknown AM PATROL DRIVER 11:59 AM PATROL DRIVER Faye Felton APRN, PROCESS SAFETY MANAGEMENT ENGINEER LAB_1 Performing Organization Address City/State/ZIP Code Phon e Number [facility] [address] [place] [address] Infliximab Activity with Reflex to Antibody (08/04/2019 11:59 AM PATROL DRIVER) Analysis Performed At Patho logist Time Signature Infliximab 1.74 ug/mL 08/05/2019 [facility] Activity 3:43 PM PATROL DRIVER LABORATORIES Comment: INTERPRETIVE INFORMATION: Infliximab or biosimilar [...] Test developed and characteristics deter mined by [employer]. See Compliance Statement B : Vouch/CS Performed by [facility], [address] [place] [email or web address], Romulo Pritchett MD, Lab. Director EER Infliximab Activity See Note 08/05/2019 3:43 PM PATROL DRIVER [facility] Comment: Access [facility] Report using either link below: -Direct access: [email or web address] -Enter Username, Password: [email or web address] Username: [email or web address] Password: [email or web address] Specimen Anatomical Collection Method / Collection Time Recei peña Time (Source) Location / Volume Laterality Blood Venipuncture / 08/04/2019 11:59 0 Unknown AM PATROL DRIVER 11:59 AM PATROL DRIVER Faye Felton APRN, SIERRA LAB_1 Performing Organization Address City/State/ZIP Code Phon e Number [facility] [address] [phone] (ABNORMAL) C Reactive Protein (08/04/2019 11:59 AM PATROL DRIVER) P athologist Signature C-Reactive 1.0 (H) 0.0 - 0.7 08/04/2019 [facility] Protein mg/dL 2:18 PM PATROL DRIVER LABORATORY Specimen Anatomical Collection Method / Collection Time Recei peña Time (Source) Location / Volume Laterality Blood Venipuncture / 08/04/2019 11:59 0 Unknown AM PATROL DRIVER 11:59 AM PATROL DRIVER Faye Felton APRN, CNP LAB_1 Performing Organization Address City/[facility]/ZIP Code Phon e Number [facility] [address] [place] [address] documented in this encounter Visit Diagnoses Diagnosis Left sided ulcerative (chronic) colitis (HRC) Left sided ulcerative (chronic) colitis documented in this encounter Care Teams Montessori Paraprofessional Relationship Specialty Start Date End Date Sheeba Castillo APRN, SIERRA PCP - General Nurse Practitioner 07/20/16 [address] [place] [id number] documented as of this encounter
--- OUTSIDE RECORDS SUMMARY | 2022-05-09 19:22 | XMS_ITS | Encounter Summary ---
:1975 Author Organization [employer] Address [address] [address] Care Team Providers Name Role Phone Sheeba Castillo APRN, CNP Primary Care Provider [phone] Reason for Visit Reason Comments Follow-up Encounter Details Date Type Department Care Team Description 05/28/2019 [facility], Left sided ulcerative (chronic) colitis (HRC) (Primary Dx); Gastroenterology [facility] Immunosuppressed status (HRC) [address] [place] [address], [address] [place] [address] [phone] Social History Tobacco Use Types Packs/Day Years Used Date Smoking Tobacco: Former Cigarettes 0.3 15 Quit : 04/25/2015 Smokeless Tobacco: Never Alcohol Use Standard Drinks/Week Comments Yes 3 (1 standard drink = 0.6 oz pure alcoho l) 3 drinks a week Sex Assigned at Date Recorded Female 05/09/2021 7:19 PM TITLE MANAGER documented as of this encounter Last Filed Vital Signs Vital Sign Reading Time Taken Comments Blood Pressure 146/86 05/28/2019 9:27 AM TITLE MANAGER Pulse 108 05/28/2019 9:27 AM TITLE MANAGER Temperature - - Respiratory Rate 16 05/28/2019 9:27 AM TITLE MANAGER Oxygen Saturation - - Inhaled Oxygen Concentration - - Weight 85.7 kg (189 lb) 05/28/2019 9:27 AM TITLE MANAGER Height - - Body Mass Index 29.6 04/30/2019 7:03 PM TITLE MANAGER documented in this encounter Patient Instructions Patient InstructionsFaye Hinojosa APRN, CNP - 05/28/2019 9:20 AM CST Continue Remicade If further issues with work, let me know. Need to get HR involved if not being allowed to go to appointments. Labs today Pneumonia vaccine after you finish prednisone Follow up in 3 months Take careIdania! E MANAGER documented in this encounter Progress Notes Faye Hinojosa APRN, CNP - 05/28/2019 9:20 AM CST GI Clinic Follow Up - IBD Patient: Idania Duarte : 1975 MR#: [id number] CSN#: [id number] Date of Visit: 05/28/19 Reason for visit: [...] or iritis/uveitis. 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 She has gotten HR involved. I have also filled out [facility] paperwork for her. Review importance of [...] Formulation 08/09/2001 ??? Influenza IIV4 (Quadrivalent) 0.5mL (13485) 03/23/2014, 03/24/2015, 03/23/2016, 03/26/2017, 03/21/2018, 03/22/2018, 03/31/2019 [...] rescue Remicade 5 milligrams/kilogram May 03. Fortunately, Lroin is doing very well. She has now [...] prednisone taper as outlined. Agree with stopping Stacie and Osiel. Would be reasonable to repeat a flex [...] she continues to receive backlash from her cnc supervisor, she was advised to get HR [...] on condition, treatment, and plan of care. E MANAGER documented in this encounter Plan of Treatment Upcoming Encounters Date Type Specialty Care Team Description 05/12/2022 Hospital Encounter Chemo Therapy/Infusion Services 09/15/2022 Telemedicine Gastroenterology Eusebio Haines MD [address] [place], [place] [address] documented as of this encounter Results BMP - Basic Metabolic Panel (06/06/2019 3:36 PM TITLE MANAGER) P athologist Signature Sodium 137 136 - 145 06/06/2019 [facility] mmol/L 4:38 PM TITLE MANAGER LABORATORY Potassium 3.6 3.5 - 5.1 06/06/2019 [facility] mmol/L 4:38 PM TITLE MANAGER LABORATORY Chloride 102 98 - 109 06/06/2019 [facility] mmol/L 4:38 PM TITLE MANAGER LABORATORY CO2 26 20 - 29 06/06/2019 [facility] mmol/L 4:38 PM TITLE MANAGER LABORATORY Anion Gap 9 7 - 16 06/06/2019 [facility] mmol/L 4:38 PM TITLE MANAGER LABORATORY Calcium 9.3 8.4 - 10.4 06/06/2019 [facility] mg/dL 4:38 PM TITLE MANAGER LABORATORY BUN <10 7 - 26 06/06/2019 [facility] mg/dL 4:38 PM TITLE MANAGER LABORATORY Creatinine 0.70 0.55 - 06/06/2019 [facility] 1.02 mg/dL 4:38 PM TITLE MANAGER LABORATORY GFR, Estimated >60 >60 06/06/2019 [facility] mL/min/1.7 4:38 PM TITLE MANAGER LABORATORY 3m2 GFR, Est If >60 >60 06/06/2019 [facility] mL/min/1.7 4:38 PM TITLE MANAGER LABORATORY [place] 3m2 Glucose 96 70 - 100 06/06/2019 [facility] mg/dL 4:38 PM TITLE MANAGER LABORATORY Comment: The given reference range is fo r the fasting state. Non-fasting reference range for glucose is 70 - 180 mg/dL. Hours Fasting 3 06/06/2019 4:38 PM TITLE MANAGER [facility] Specimen Anatomical Collection Method / Collection Time Recei peña Time (Source) Location / Volume Laterality Blood Venipuncture / 06/06/2019 3:36 06/06/2019 3:36 Unknown PM TITLE MANAGER PM TITLE MANAGER Faye Felton APRN, CNP LAB_1 Performing Organization Address City/State/[facility] Code Phon e Number [facility] [address] [place] [address] documented in this encounter Visit Diagnoses Diagnosis Left sided ulcerative (chronic) colitis (HRC) - Primary Left sided ulcerative (chronic) colitis Immunosuppressed status (HRC) Unspecified disorder of immune mechanism documented in this encounter Care Teams Instrument Assembler Relationship Specialty Start Date End Date Sheeba Castillo APRN, HAMPER MAKER PCP - General Nurse Practitioner 07/20/[address] [place] [address] documented as of this encounter
--- OUTSIDE RECORDS SUMMARY | 2022-05-09 19:22 | XMS_ITS | Encounter Summary ---
:1975 Author Organization [employer] Address [address] [address] Care Team Providers Name Role Phone Sheeba Castillo APRN, CNP Primary Care Provider [phone] Reason for Visit Reason Comments Dental Hygiene cc none Encounter Details Date Type Department Care Team Description 07/01/2019 Office Visit [facility] Christopher Dental Hygiene (cc Dentistry [address] [facility] none) [address] [place] [address] [phone] Social History Tobacco Use Types Packs/Day Years Used Date Smoking Tobacco: Former Cigarettes 0.3 15 Quit : 04/25/2015 Smokeless Tobacco: Never Alcohol Use Standard Drinks/Week Comments Yes 3 (1 standard drink = 0.6 oz pure alcoho l) 3 drinks a week Sex Assigned at Date Recorded Female 05/09/2021 7:19 PM SIGHT EFFECTS SPECIALIST documented as of this encounter Last Filed Vital Signs Vital Sign Reading Time Taken Comments Blood Pressure - - Pulse 96 07/01/2019 4:38 PM SIGHT EFFECTS SPECIALIST Temperature - - Respiratory Rate - - Oxygen Saturation - - Inhaled Oxygen Concentration - - Weight - - Height - - Body Mass Index - - documented in this encounter Patient Instructions Patient InstructionsAdelia Montalvo, DDS - 07/01/2019 4:20 PM CST Your [...] next visit! Thank you for choosing [facility]. T EFFECTS SPECIALIST documented in this encounter Progress Notes Adelia [...] DDS 07/01/2019, 5:11 PM --End of Note-- T EFFECTS SPECIALIST Elin Christopher - 07/01/2019 4:20 PM CST [...] Christopher 07/01/2019, 5:07 PM --End of Note-- T EFFECTS SPECIALIST documented in this encounter Plan of Treatment Upcoming Encounters Date Type Specialty Care Team Description 05/12/2022 Hospital Encounter Chemo Therapy/Infusion Services 09/15/2022 Telemedicine Gastroenterology Eusebio Haines MD [address] [place] [address] documented as of this encounter Procedures Procedure Name Priority Date/Time Associated Diagnosis Comme nts PERIODIC ORAL Routine 07/01/2019 4:20 PM Routine health EVALUATION SIGHT EFFECTS SPECIALIST maintenance PROPHYLAXIS-ADULT Routine 07/01/2019 4:20 PM Routine health RECALL SIGHT EFFECTS SPECIALIST maintenance documented in this encounter Visit Diagnoses Diagnosis Routine health maintenance - Primary Routine general medical examination at a health care facility documented in this encounter Care Teams Fitter Machinist Relationship Specialty Start Date End Date Sheeba Castillo, SANITATION INSPECTOR, CUTTER OPERATOR ASBESTOS SHINGLE PCP - General Nurse Practitioner 07/20/16 [address] [place] [id number] documented as of this encounter
--- OUTSIDE RECORDS SUMMARY | 2022-05-09 19:22 | XMS_ITS | Encounter Summary ---
:1975 Author Organization [employer] Address [address] [place] [address] Care Team Providers Name Role Phone Sheeba Castillo APRN, SIERRA Primary Care Provider [phone] Encounter Details Date Type Department Care Team Description 06/06/2019 Lab Visit [facility] Left sided ulcerative [address] [facility] (chronic) colitis (HRC) [place] [address] Social History Tobacco Use Types Packs/Day Years Used Date Smoking Tobacco: Former Cigarettes 0.3 15 Quit : 04/25/2015 Smokeless Tobacco: Never Alcohol Use Standard Drinks/Week Comments Yes 3 (1 standard drink = 0.6 oz pure alcoho l) 3 drinks a week Sex Assigned at Date Recorded Female 05/09/2021 7:19 PM EXPRESSIVE MUSIC THERAPIST documented as of this encounter Plan of Treatment Upcoming Encounters Date Type Specialty Care Team Description 05/12/2022 Hospital Encounter Chemo Therapy/Infusion Services 09/15/2022 Telemedicine Gastroenterology Eusebio Haines MD [address] [place] [address] documented as of this encounter Procedures Procedure Name Priority Date/Time Associated Comments Diagnosis CBC AND DIFFERENTIAL Routine 06/06/2019 3:36 PM Left sided R esults for this PANEL EXPRESSIVE MUSIC THERAPIST ulcerative procedure are i n (chronic) colitis the result s (HRC) section. COMPLETE BLOOD Routine 06/06/2019 3:36 PM Left sided Results for this COUNT-W/DIFF EXPRESSIVE MUSIC THERAPIST ulcerative procedure are i n (chronic) colitis the result s (HRC) section. BASIC METABOLIC PANEL Routine 06/06/2019 3:36 PM Left sided Results for this EXPRESSIVE MUSIC THERAPIST ulcerative procedure are i n (chronic) colitis the result s (HRC) section. documented in this encounter Results (ABNORMAL) Complete Blood Count-W/Diff (06/06/2019 3:36 PM EXPRESSIVE MUSIC THERAPIST) [facility] gist Method Time Signature WBC 11.4 (H) 3.5 - 10.5 06/06/2019 [facility] x10(9)/L 3:40 PM EXPRESSIVE MUSIC THERAPIST LABORATORY RBC 4.57 3.90 - 06/06/2019 [facility] 5.03 3:40 PM EXPRESSIVE MUSIC THERAPIST LABORATORY x10(12)/L Hemoglobin 14.0 12.0 - 06/06/2019 [facility] 15.5 g/dL 3:40 PM EXPRESSIVE MUSIC THERAPIST LABORATORY HCT 43.1 34.9 - 06/06/2019 [facility] 44.5 % 3:40 PM EXPRESSIVE MUSIC THERAPIST LABORATORY MCV 94.3 80.0 - 06/06/2019 [facility] 100.0 fL 3:40 PM EXPRESSIVE MUSIC THERAPIST LABORATORY MCH 30.6 27.6 - 06/06/2019 [facility] 33.3 pg 3:40 PM EXPRESSIVE MUSIC THERAPIST LABORATORY MCHC 32.5 31.5 - 06/06/2019 [facility] 35.2 g/dL 3:40 PM EXPRESSIVE MUSIC THERAPIST LABORATORY RDW 13.5 11.9 - 06/06/2019 [facility] 15.5 % 3:40 PM EXPRESSIVE MUSIC THERAPIST LABORATORY Platelets 343 150 - 450 06/06/2019 [facility] x10(9)/L 3:40 PM EXPRESSIVE MUSIC THERAPIST LABORATORY Automated NRBC 0 <=0 /100 06/06/2019 [facility] WBC 3:40 PM EXPRESSIVE MUSIC THERAPIST LABORATORY Neutrophil 8.3 (H) 1.7 - 7.0 06/06/2019 [facility] Absolute 10(9)/L 3:40 PM EXPRESSIVE MUSIC THERAPIST LABORATORY Lymphocyte 2.3 1.0 - 4.8 06/06/2019 [facility] Absolute 10(9)/L 3:40 PM EXPRESSIVE MUSIC THERAPIST LABORATORY Monocytes 0.6 0.2 - 0.9 06/06/2019 [facility] Absolute 10(9)/L 3:40 PM EXPRESSIVE MUSIC THERAPIST LABORATORY Eosinophil 0.0 0.0 - 0.5 06/06/2019 [facility] Absolute 10(9)/L 3:40 PM EXPRESSIVE MUSIC THERAPIST LABORATORY Basophil 0.0 0.0 - 0.3 06/06/2019 [facility] Absolute 10(9)/L 3:40 PM EXPRESSIVE MUSIC THERAPIST LABORATORY Immature Gran % 0.9 (H) 0.0 - 0.5 06/06/2019 [facility] % 3:40 PM EXPRESSIVE MUSIC THERAPIST LABORATORY Specimen Anatomical Collection Method / Collection Time Recei peña Time (Source) Location / Volume Laterality Blood Venipuncture / 06/06/2019 3:36 06/06/2019 3:36 Unknown PM EXPRESSIVE MUSIC THERAPIST PM EXPRESSIVE MUSIC THERAPIST Faye Felton APRN, SIERRA LAB_1 Performing Organization Address City/State/ZIP Code Phon e Number [facility] [address] [place] [address] BMP - Basic Metabolic Panel (06/06/2019 3:36 PM EXPRESSIVE MUSIC THERAPIST) P athologist Signature Sodium 137 136 - 145 06/06/2019 [facility] mmol/L 4:38 PM EXPRESSIVE MUSIC THERAPIST LABORATORY Potassium 3.6 3.5 - 5.1 06/06/2019 [facility] mmol/L 4:38 PM EXPRESSIVE MUSIC THERAPIST LABORATORY Chloride 102 98 - 109 06/06/2019 [facility] mmol/L 4:38 PM EXPRESSIVE MUSIC THERAPIST LABORATORY CO2 26 20 - 29 06/06/2019 [facility] mmol/L 4:38 PM EXPRESSIVE MUSIC THERAPIST LABORATORY Anion Gap 9 7 - 16 06/06/2019 [facility] mmol/L 4:38 PM EXPRESSIVE MUSIC THERAPIST LABORATORY Calcium 9.3 8.4 - 10.4 06/06/2019 [facility] mg/dL 4:38 PM EXPRESSIVE MUSIC THERAPIST LABORATORY BUN <10 7 - 26 06/06/2019 [facility] mg/dL 4:38 PM EXPRESSIVE MUSIC THERAPIST LABORATORY Creatinine 0.70 0.55 - 06/06/2019 [facility] 1.02 mg/dL 4:38 PM EXPRESSIVE MUSIC THERAPIST LABORATORY GFR, Estimated >60 >60 06/06/2019 [facility] mL/min/1.7 4:38 PM EXPRESSIVE MUSIC THERAPIST LABORATORY 3m2 GFR, Est If >60 >60 06/06/2019 [facility] mL/min/1.7 4:38 PM EXPRESSIVE MUSIC THERAPIST LABORATORY Portuguese 3m2 Glucose 96 70 - 100 06/06/2019 [facility] mg/dL 4:38 PM EXPRESSIVE MUSIC THERAPIST LABORATORY Comment: The given reference range is fo r the fasting state. Non-fasting reference range for glucose is 70 - 180 mg/dL. Hours Fasting 3 06/06/2019 4:38 PM EXPRESSIVE MUSIC THERAPIST [facility] Specimen Anatomical Collection Method / Collection Time Recei peña Time (Source) Location / Volume Laterality Blood Venipuncture / 06/06/2019 3:36 06/06/2019 3:36 Unknown PM EXPRESSIVE MUSIC THERAPIST PM EXPRESSIVE MUSIC THERAPIST Faye Felton APRN, CNP LAB_1 Performing Organization Address City/State/ZIP Code Phon e Number [facility] [address] [place] [address] documented in this encounter Visit Diagnoses Diagnosis Left sided ulcerative (chronic) colitis (HRC) Left sided ulcerative (chronic) colitis documented in this encounter Care Teams Office Rn Relationship Specialty Start Date End Date Sheeba Castillo APRN, ASSOCIATE DEAN OF WOMEN PCP - General Nurse Practitioner 07/20/16 [address] [place] [phone] documented as of this encounter
--- OUTSIDE RECORDS SUMMARY | 2022-05-09 19:22 | XMS_ITS | Encounter Summary ---
:1975 Author Organization [employer] Address [address] [place] [address] Care Team Providers Name Role Phone Sheeba Castillo APRN, PLANS EXAMINER Primary Care Provider [phone] Reason for Visit Reason Comments Forms Encounter Details Date Type Department Care Team Description 05/21/2019 Telephone [facility] [address] Faye Felton A PRN, Forms Gastroenterology PLANS EXAMINER [address] [place], [place] [phone] [place], [place] [phone] (Wo rk) Social History Tobacco Use Types Packs/Day Years Used Date Smoking Tobacco: Former Cigarettes 0.3 15 Quit : 04/25/2015 Smokeless Tobacco: Never Alcohol Use Standard Drinks/Week Comments Yes 3 (1 standard drink = 0.6 oz pure alcoho l) 3 drinks a week Sex Assigned at Date Recorded Female 05/09/2021 7:19 PM PRESCHOOL ASSISTANT DIRECTOR documented as of this encounter Nursing Notes Faye Burton RN - 05/21/2019 4:22 PM CST FMLA forms faxed to the [employer]. CHOOL ASSISTANT DIRECTOR Faye Hinojosa APRN, SIERRA - 05/21/2019 9:23 AM CST Received [facility] paperwork again to fill out. I filled out to best of my ability. In my [employer] outbox, please fax as requested by due date of 05/23/19. CHOOL ASSISTANT DIRECTOR documented in this encounter Plan of Treatment Upcoming Encounters Date Type Specialty Care Team Description 05/12/2022 Hospital Encounter Chemo Therapy/Infusion Services 09/15/2022 Telemedicine Gastroenterology Eusebio Haines MD [address] [place], [place] [address] documented as of this encounter Visit Diagnoses Not on filedocumented in this encounter Care Teams Panel Edge Painter Relationship Specialty Start Date End Date Sheeba Castillo APRN, PLANS EXAMINER PCP - General Nurse Practitioner 07/20/16 [address] [place] [phone] documented as of this encounter
--- OUTSIDE RECORDS SUMMARY | 2022-05-09 19:22 | XMS_ITS | Encounter Summary ---
:1975 Author Organization [employer] Address [address] [place] [address] Care Team Providers Name Role Phone Sheeba Castillo APRN, SIERRA Primary Care Provider [phone] Reason for Visit Reason Comments Refill Phentermine HCl 37.5 MG caps ule [Pharmacy Med Name: PHENTERMINE HCL 37.5MG CAPS] Encounter Details Date Type Department Care Team Description 06/13/2019 Refill [facility] Iggy Hernandez MD Refill (Phentermine HCl [address] Reyna 37.5 MG capsule [address] [place], [place] [Pharmacy Med Name: [place] [address] PHENTERMINE HCL 37.5MG [phone] (Wo rk) CAPS]) Social History Tobacco Use Types Packs/Day Years Used Date Smoking Tobacco: Former Cigarettes 0.3 15 Quit : 04/25/2015 Smokeless Tobacco: Never Alcohol Use Standard Drinks/Week Comments Yes 3 (1 standard drink = 0.6 oz pure alcoho l) 3 drinks a week Sex Assigned at Date Recorded Female 05/09/2021 7:19 PM TAX COMPLIANCE OFFICER documented as of this encounter Nursing Notes Shilpi Santiago - 06/13/2019 8:28 AM CST Spoke with patient to inform of medication refilled. She will pick this up at her earliest convenience. COMPLIANCE OFFICER Iggy Hernandez MD - 06/13/2019 8:17 AM CST Refill completed and no further refills will be given prior to a visit. COMPLIANCE OFFICER Interface, Out [employer] Marketing Prov Query - 06/13/2019 5:44 AM CST [...] found) Next scheduled visit: None Powered by [facility], Reference: [id number], 06/13/2019 5:44:33 AM SANGEETA, [place]: DEANDRA MAE REFILL ([id number]) COMPLIANCE OFFICER Interface, Out [employer] Prov Query - 06/13/2019 5:44 AM CST No Careplan note found by [employer]. COMPLIANCE OFFICER documented in this encounter Plan of Treatment Upcoming Encounters Date Type Specialty Care Team Description 05/12/2022 Hospital Encounter Chemo Therapy/Infusion Services 09/15/2022 Telemedicine Gastroenterology Eusebio Haines MD [address] [place], [place] [address] documented as of this encounter Visit Diagnoses Not on filedocumented in this encounter Care Teams Chemical Production Engineer Relationship Specialty Start Date End Date Sheeba Castillo APRN, VOLUNTEER FIRE FIGHTER PCP - General Nurse Practitioner 07/20/16 [address] [place] [phone] documented as of this encounter
--- OUTSIDE RECORDS SUMMARY | 2022-05-09 19:22 | XMS_ITS | Encounter Summary ---
:1975 Author Organization [facility] Address [address] [place] [address] Care Team Providers Name Role Phone Sheeba Castillo APRN, PATENT PARALEGAL Primary Care Provider Reason for Visit Reason Comments Infusion Infusion Therapy Plan (Routine) - Closed Specialty Diagnoses / Procedures Referred By Contact Refer red To Contact Diagnoses Ulcerative rectosigmoiditis with rectal bleeding (HRC) Eileen Bernabe, [facility] CARE MANAGER, PATENT PARALEGAL [address] [address] [address] [place] [address] [place] [address] Referral ID Status Reason Start Date Expiration Date Visits Requ ested Visits Authorized [id number] Closed 08/07/2019 09/23/[phone] Encounter Details Date Type Department Care Team Description 06/13/2019 Hospital Encounter [facility] [place] [address] [address] rectal bleeding (HRC) [place] [address] (Primary Dx) [phone] Social History Tobacco Use Types Packs/Day Years Used Date Smoking Tobacco: Former Cigarettes 0.3 15 Quit : 04/25/2015 Smokeless Tobacco: Never Alcohol Use Standard Drinks/Week Comments Yes 3 (1 standard drink = 0.6 oz pure alcoho l) 3 drinks a week Sex Assigned at Date Recorded Female 05/09/2021 7:19 PM TRANSMITTER ENGINEER IN CHARGE documented as of this encounter Last Filed Vital Signs Vital Sign Reading Time Taken Comments Blood Pressure 130/88 06/13/2019 1:02 PM TRANSMITTER ENGINEER IN CHARGE Pulse 101 06/13/2019 1:02 PM TRANSMITTER ENGINEER IN CHARGE Temperature 36.7 ??C (98.1 ??F) 06/13/2019 1:02 PM TRANSMITTER ENGINEER IN CHARGE Respiratory Rate - - Oxygen Saturation 100% 06/13/2019 1:02 PM TRANSMITTER ENGINEER IN CHARGE Inhaled Oxygen Concentration - - Weight 85.7 kg (189 lb) 06/13/2019 1:02 PM TRANSMITTER ENGINEER IN CHARGE Height - - Body Mass Index 29.6 04/30/2019 7:03 PM TRANSMITTER ENGINEER IN CHARGE documented in this encounter Medications at Time [...] for next infusion as scheduled on 08/08. SMITTER ENGINEER IN CHARGE documented in this encounter Plan of Treatment Upcoming Encounters Date Type Specialty Care Team Description 05/12/2022 Hospital Encounter Chemo Therapy/Infusion Services 09/15/2022 Telemedicine Gastroenterology Eusebio Haines MD [address] [place], [place] [address] documented as of this encounter Visit Diagnoses Diagnosis 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 documented in this encounter Administered Medications Inactive Administered Medications - up to 3 most recent administrations Medication Order MAR Action Action Date Dose Rate Site inFLIXimab (REMICADE) 400 mg in Started 06/13/2019 1:15 PM TRANSMITTER ENGINEER IN CHARGE 400 mg sodium chloride 0.9 % 250 mL IVPB 400 mg (rounded from 428.5 mg = 5 mg/kg ? 85.7 kg), Intravenous, ONCE, On Sun06/13/19 at 1330, For 1 dose, Week 6 dose sodium chloride 0.9% injection 10-60 mL Given 06/13/2019 3:12 PM TRANSMITTER ENGINEER IN CHARGE 10 mL 10-60 mL, Intravenous, PRN BEFORE&AFTER MEDICATIONS OR LAB DRAW, Line Patency, Starting on Sun06/13/19 at 1311, Until Sun06/13/19 at 1745, For 1 day documented in this encounter Care Teams Director Mobile Media Solutions Relationship Specialty Start Date End Date Sheeba Castillo, CARE MANAGER, PATENT PARALEGAL PCP - General Nurse Practitioner 07/20/16 [id number] [place] [address] documented as of this encounter
--- OUTSIDE RECORDS SUMMARY | 2022-05-09 19:22 | XMS_ITS | Encounter Summary ---
:1975 Author Organization [facility] Address [address] [place] [address] Care Team Providers Name Role Phone Sheeba Castillo APRN, SIERRA Primary Care Provider [phone] Encounter Details Date Type Department Care Team Description 06/17/2019 adriana Kaur [phone] Social History Tobacco Use Types Packs/Day Years Used Date Smoking Tobacco: Former Cigarettes 0.3 15 Quit : 04/25/2015 Smokeless Tobacco: Never Alcohol Use Standard Drinks/Week Comments Yes 3 (1 standard drink = 0.6 oz pure alcoho l) 3 drinks a week Sex Assigned at Date Recorded Female 05/09/2021 7:19 PM MAGAZINE FEEDER documented as of this encounter Progress Notes FAMILY MEDICINEADRIANA PROVIDER - 06/20/2019 12:00 AM CST adriana Addendum Treatment Plan Diagnosis Acute Bronchitis Visit Date June 17, 2019 Addendum Date June 20, 2019 Idania Duarte Date of : 79 Provider [place], Nurse Practitioner Note From Provider Marcin Emerson!Thanks for speaking with me today. Please look over your treatment plan. I've sent your script to the pharmacy you requested.Request a Call Back if you have any concerns or questions.Take Care~ Neema WATER FITNESS INSTRUCTOR Treatment Plan Let???s help you get some relief from your cough right away. I???ve included a prescription inhaler to open up your airways and allow for easier breathing. I sent your prescription to [id number]. I've also listed a few [...] 7 days Note: Refills: None [facility] [address] [place] [address] Treatment Plan Self Care Tip Topics You???re [...] Necon 0.5/35 (28) (norethindrone-ethin estradiol) Allergies None [facility] Information Localize [facility] We are an online clinic open 15/01. If you have any questions or comments about this visit, please call or email [email or web address]. ZINE FEEDER FAMILY MEDICINE, JUDIEJUSTYN PROVIDER - 06/17/2019 12:00 AM CST [email or web address] Treatment Plan Diagnosis Viral Upper Respiratory Infection [...] charge, anytime- we're here 15/01! Be well. SIRERA Jean-Baptiste Treatment Plan Let???s get you feeling better in the next 24 hours by using a special blend of auvg-dhq-hcabshc products to reduce your pain and other [...] Refills: None fluticasone propionate 50 mcg/actuation spray,suspension [place] 1-2 spray nasl once a day as needed for 30 days Note: Refills: 11 Sent To: [facility] [place] [address] [place] [address] Treatment Plan Self Care Tip Topics Symptom [...] Necon 0.5/35 (28) (norethindrone-ethin estradiol) Allergies None [facility] Information [facility] We are an online clinic open 15/01. If you have any questions or comments about this visit, please call or email [email or web address]. Electronically signed by Interface, [employer] Notes at 06/17/2019 7:50 AM MAGAZINE FEEDER documented in this encounter Plan of Treatment Upcoming Encounters Date Type Specialty Care Team Description 05/12/2022 Hospital Encounter Chemo Therapy/Infusion Services 09/15/2022 Telemedicine Gastroenterology Eusebio Haines MD [address] [place] [address] documented as of this encounter Visit Diagnoses Not on filedocumented in this encounter Care Teams Cnc Machinist Relationship Specialty Start Date End Date Sheeba Castillo, BUSINESS CONTINUITY MANAGER, PILL MAKER PCP - General Nurse Practitioner 07/20/16 [address] [place] [id number] documented as of this encounter
--- OUTSIDE RECORDS SUMMARY | 2022-05-09 19:22 | XMS_ITS | Encounter Summary ---
:1975 Author Organization [facility] Address [address] [place] [address] Care Team Providers Name Role Phone Sheeba Castillo SPICE CLEANER, SIERRA Primary Care Provider [phone] Reason for Visit Reason Comments FOLLOW-UP, TEST RESULTS Encounter Details Date Type Department Care Team Description 08/04/2019 Telephone Specialty Center [address] OLLOW-UP, TEST Gastroenterology SPICE CLEANER, SIERRA RESULTS [address] [place], [place] Rick [address] [address] [place], [place] [phone] (Wo rk) Social History Tobacco Use Types Packs/Day Years Used Date Smoking Tobacco: Former Cigarettes 0.3 15 Quit : 04/25/2015 Smokeless Tobacco: Never Alcohol Use Standard Drinks/Week Comments Yes 3 (1 standard drink = 0.6 oz pure alcoho l) 3 drinks a week Sex Assigned at Date Recorded Female 05/09/2021 7:19 PM PRICE CHECKER documented as of this encounter Nursing Notes [...] and will call sooner if anything changes. E CHECKER Beth Nichols RN - 08/15/2019 2:35 PM CST Left message to call back. Faye Joy APRN, SIERRA - 08/15/2019 12:34 PM CST [...] get her some relief before the weekend. Beth Khan RN - 08/15/2019 11:56 AM CST Update: [...] stopped this. Pharmacy updated. Appointment 08/27/19. Micaela Faye Joy APRN, SIERRA - 08/12/2019 3:56 PM CST Ok, so some things sound a bit better. Agree with plan to call back in a few days, thanks! Manfred Celestin, RN - 08/12/2019 3:48 PM CST Called [...] after the higher Remicade dose last Sunday? E CHECKER Vickie Garcia LPN - 08/08/2019 9:05 AM CST Called [facility] to check on status of prior authorization. Dosage increase is approved for date range 08/07/2019 to 09/22/2020, authorization # [id number]. Notified infusion center of approval and updated referral. Notified patient of approval as well. Vickie Segovia LPN - 08/07/2019 4:24 PM CST Prior authorization submitted to [facility] as urgent. Let patient know prior authorization was submitted and that we should have answer by end of day. [facility] with Ronaldo in prior authorizations and let him know that this is urgent and this is for infusion tomorrow. Requested notification fax before end of day. E CHECKER Faye Hinojosa APRN, CNP - 08/05/2019 4:47 PM CST Attempted to call Idania, no answer left message to call back. Her Remicade level is 1. This is why she is having increased symptoms. See Mychart message with her significant symptoms. She was previously on 5mg/kg every 8 weeks. Her first maintenance dose is Sunday. She needs to increase to 10mg/kg every 8 weeks. She should get 10mg/kg on Sunday. I updated her therapy plan. Please initiate PA OSMANY. E CHECKER Carlie Logan RN - 08/05/2019 9:41 AM CST Left message to call back. E CHECKER Faye Hinojosa APRN, CNP - 08/04/2019 3:24 PM CST This is sufficient, doesn't need repeat labs Sunday. I will update her once Remicade level is back. Could I get a symptom update? Thank you. E CHECKER Marti Pandya RN - 08/04/2019 3:04 PM CST Pt returned call, given msg below, states understanding. Pt states she had the Remicade trough level drawn today along with the rest of her labs. EL INVESTIGATOR NARCOTICS: Is this sufficient or should pt repeat lab on Sunday? Manfred Celestin RN - 08/04/2019 12:04 PM CST Left message to call back E CHECKER Faye Hinojosa APRN, CNP - 08/04/2019 9:01 [...] let me know how she is feeling. E CHECKER documented in this encounter Plan of Treatment Upcoming Encounters Date Type Specialty Care Team Description 05/12/2022 Hospital Encounter Chemo Therapy/Infusion Services 09/15/2022 Telemedicine Gastroenterology Eusebio Haines MD [address] [place], [place] [address] documented as of this encounter Visit Diagnoses Not on filedocumented in this encounter Care Teams Media Promoter Relationship Specialty Start Date End Date Sheeba Castillo APRN, SIERRA PCP - General Nurse Practitioner 07/20/16 [address] [address] [place] [phone] documented as of this encounter
--- OUTSIDE RECORDS SUMMARY | 2022-05-09 19:22 | XMS_ITS | Encounter Summary ---
:1975 Author Organization [employer] Address [address] [place] [address] Care Team Providers Name Role Phone Sheeba Castillo APRN, SIERRA Primary Care Provider [phone] Encounter Details Date Type Department Care Team Description 07/31/2019 Lab Visit [facility] Left sided ulcerative [address] [facility] (chronic) colitis (HRC) [place] [address] Social History Tobacco Use Types Packs/Day Years Used Date Smoking Tobacco: Former Cigarettes 0.3 15 Quit : 04/25/2015 Smokeless Tobacco: Never Alcohol Use Standard Drinks/Week Comments Yes 3 (1 standard drink = 0.6 oz pure alcoho l) 3 drinks a week Sex Assigned at Date Recorded Female 05/09/2021 7:19 PM PICTURE FRAMER documented as of this encounter Plan of Treatment Upcoming Encounters Date Type Specialty Care Team Description 05/12/2022 Hospital Encounter Chemo Therapy/Infusion Services 09/15/2022 Telemedicine Gastroenterology Eusebio Haines MD [address] [place] [address] documented as of this encounter Procedures Procedure Name Priority Date/Time Associated Comments Diagnosis ENTERIC STOOL Routine 07/31/2019 8:53 AM Left sided Results for this PATHOGENS PANEL PICTURE FRAMER ulcerative procedure ar e in (chronic) colitis the result s (HRC) section. FECAL CALPROTECTIN Routine 07/31/2019 8:53 AM Left sided Res ults for this PICTURE FRAMER ulcerative procedure are i n (chronic) colitis the result s (HRC) section. ENTERIC STOOL Routine 07/31/2019 8:53 AM Left sided Results for this PATHOGENS, MOLECULAR PICTURE FRAMER ulcerative procedu re are in DETECTION PANEL (chronic) colitis the res ults (HRC) section. documented in this encounter Results Enteric Stool Pathogens, Molecular Detection Panel (07/31/2019 8:53 AM PICTURE FRAMER) Analysis Performed Patholog ist Time At Signature Campylobacter Not Not MOLECULAR BLOOD 08/01/2019 [facility] Detected Detected CULTURE 6:12 AM HOSPITAL IDENTIFICATION PICTURE FRAMER Salmonella Not Not MOLECULAR BLOOD 08/01/2019 [facility] Species Detected Detected CULTURE 6:12 AM HOSPITAL IDENTIFICATION PICTURE FRAMER Shigella Species Not Not MOLECULAR BLOOD 08/01/2019 [facility] Detected Detected CULTURE 6:12 AM HOSPITAL IDENTIFICATION PICTURE FRAMER Vibrio Group Not Not MOLECULAR BLOOD 08/01/2019 [facility] Detected Detected CULTURE 6:12 AM HOSPITAL IDENTIFICATION PICTURE FRAMER Shiga toxin 1 Not Not MOLECULAR BLOOD 08/01/2019 [facility] Detected Detected CULTURE 6:12 AM HOSPITAL IDENTIFICATION PICTURE FRAMER Shiga toxin 2 Not Not MOLECULAR BLOOD 08/01/2019 [facility] Detected Detected CULTURE 6:12 AM HOSPITAL IDENTIFICATION PICTURE FRAMER Norovirus Not Not MOLECULAR BLOOD 08/01/2019 [facility] Detected Detected CULTURE 6:12 AM HOSPITAL IDENTIFICATION PICTURE FRAMER Rotavirus Not Not MOLECULAR BLOOD 08/01/2019 [facility] Detected Detected CULTURE 6:12 AM HOSPITAL IDENTIFICATION PICTURE FRAMER Yersinia Not Not MOLECULAR BLOOD 08/01/2019 [facility] enterocolitica Detected Detected CULTURE 6:12 AM HOSPITAL IDENTIFICATION PICTURE FRAMER Specimen Anatomical Collection Method Collection Time Receive d Time (Source) Location / / Volume Laterality Stool 07/31/2019 8:53 AM 0 8:53 PICTURE FRAMER AM PICTURE FRAMER Narrative [facility] - 08/01/2019 6:12 AM CS T Shiga toxin producing E. coli (STEC) typically harbor one or both genes that encode for Shiga toxins 1 and 2. Testing is performed by an automated sys tem utilizing reverse clip wrapper (RT), polymerase chain reaction (PCR), and array hybridization. Shiga toxin producing E. coli (STEC) typ ically harbor one or both genes that encode for Shiga toxins 1 and 2. Testing is performed by an automated sys tem utilizing reverse clip wrapper (RT), polymerase chain reaction (PCR), and array hybridization. Faye Felton BRASS INSTRUMENT REPAIR TECHNICIAN, LIVESTOCK RANCHER LAB_1 Performing Organization Address City/State/ZIP Code Phon e Number [address] [address] (ABNORMAL) Calprotectin Fecal (07/31/2019 8:53 AM PICTURE FRAMER) [facility] Method Time Signature Fecal >1250 (H) <=50 ug/g 08/03/2019 [facility] Calprotectin 1:49 AM PICTURE FRAMER LABORATORIES Comment: Fecal Calprotectin is an indicator [...] ??121 ug/g or greater: Abnormal Performed by [facility], [address] [place] [address] [email or web address], Romulo Pritchett MD, Lab. Director Specimen Anatomical Collection Method Collection Time Receive d Time (Source) Location / / Volume Laterality Stool 07/31/2019 8:53 AM 0 8:53 PICTURE FRAMER AM PICTURE FRAMER Faye [place] APRN, CNP LAB_1 Performing Organization Address City/[facility] Phon e Number [facility] [address] [place], [place] [address] documented in this encounter Visit Diagnoses Diagnosis Left sided ulcerative (chronic) colitis (HRC) Left sided ulcerative (chronic) colitis documented in this encounter Care Teams Safety Trainer Relationship Specialty Start Date End Date Sheeba Castillo APRN, CNP PCP - General Nurse Practitioner 07/20/16 [address] [place] [address] documented as of this encounter
--- OUTSIDE RECORDS SUMMARY | 2022-05-09 19:22 | XMS_ITS | Encounter Summary ---
:1975 Author Organization [facility] Address [address] [place] [address] Care Team Providers Name Role Phone Sheeba Castillo APRN, CNP Primary Care Provider [phone] Reason for Visit Reason Comments Skin Exam Encounter Details Date Type Department Care Team Description 07/03/2019 Office Visit Julio C Crisostomo Actinic ker atosis (Primary Dx); Dermatology AMD Sun-damaged skin; [address] [address] [place] Dermal hypers ensitivity reaction; Drive Katie Davies Multiple pigmented nevi; [place], [place] H/O dysp lastic nevus; [address] H/O nonmelanoma skin cancer; [phone] Neoplasm of ski n; (Work) Basal cell carcinoma (BCC), unspecified site Social History Tobacco Use Types Packs/Day Years Used Date Smoking Tobacco: Former Cigarettes 0.3 15 Quit : 04/25/2015 Smokeless Tobacco: Never Alcohol Use Standard Drinks/Week Comments Yes 3 (1 standard drink = 0.6 oz pure alcoho l) 3 drinks a week Sex Assigned at Date Recorded Female 05/09/2021 7:19 PM MAIL CLERK documented as of this encounter Patient [...] about an infection, please call. Phone numbers: Cindy Lam [facility] MARIO Prado MA Direct dial m- 7:30-4:30 Fri 8-12 or call through the [...] Dermatology Nurse Line if you have concerns [phone] Caring for the Treated Sites: ??? No [...] keep it covered or even use some kstx-pxb-loorkzu hydrocortisone or plain vaseline to make it feel better. ??? Avoid excessive sun exposure to these areas, this can result in persistent darkening at the treated sites. Treatment Goals: ??? To cause the skin growth to fall off with the scab, leaving healthy new skin. ??? This new skin is typically commercial drone software developer, and will usually blend in color-ibarra over [...] adult dose is 1,000-2,000 IUs, once daily. CLERK documented in this encounter Progress Notes Julio [...] Surgical Path, Dermatology - Initial shave bx ([address]) P: Clinical impression reviewed with patient. Sun [...] switching to an alternative agent with her well drill operator rotary drill. Topically she can start triamcinolone 0.1% ointment twice daily. Recommend Zyrtec 10 mg in the morning and Benadryl 25 mg in the evening. Return to clinic in 3 months or sooner should concerns arise Julio C Coe MD Dermatology - [facility] 07/03/2019 FINAL DIAGNOSIS A. Skin, left medial [...] software and may contain unintended word substitutions. CLERK Chelsey Knowles RN - 07/03/2019 2:45 PM CST Images from the original note were not included. CLERK Julio C Coe MD - 07/03/2019 2:45 PM CST Please notify patient. Sites A and C were both basal cell carcinomas, treated at visit, no further treatment needed. 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 Okay to monitor sites. CLERK documented in this encounter Plan of Treatment Upcoming Encounters Date Type Specialty Care Team Description 05/12/2022 Hospital Encounter Chemo Therapy/Infusion Services 09/15/2022 Telemedicine Gastroenterology Eusebio Haines MD [address] [place] [address] documented as of this encounter Procedures Procedure Name Priority Date/Time Associated Comments Diagnosis SURGICAL PATHOLOGY, Routine 07/03/2019 3:09 PM Neoplasm of ski n Results for this DERMATOLOGY MAIL CLERK procedure are i n the results section. documented in this encounter Results Surgical Path, Dermatology (07/03/2019 3:09 PM MAIL CLERK) Component Value Ref Test Analysis Performed At [facility] gist Range Method Time Signature Case Report Surgical Pathology Report ? Case: [id number] ? 07/07/2019 SPORTS MARKETING COORDINATOR 3800 Authorizing Provider: ??Julio C Talamantes MD ? Collected: ? 07/03/2019 03:09 PM ? 4:23 PM DERMATOLO GY Ordering Location: ? [facility] Dermatology ? Received: ?07/04/2019 08:25 AM ? MAIL CLERK Pathologist: ? Giovani Alvarez MD ? Specimens: ?? A) - Skin shav e, left medial breast ? B) - Skin shave, right upper arm ? C) - Skin shave, right distal lateral lower leg ? FINAL A. Skin, left medial breast, shave: 06/25 SPORTS MARKETING COORDINATOR 3800 Electronically DIAGNOSIS - Basal cell carcinoma, supe rficial and nodular patterns, present at tissue margin. 4:23 PM DERMATOLOGY signed by Ousmane spears, SANGEETA Patel MD on B. 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 4:23 PM C. Skin, right distal lateral lower leg, shave: - Basal cell carcinoma, supe rficial pattern, closely approximating sampled tissue margin. Clinical A. 10mm, BCC 07/07/2019 SPORTS MARKETING COORDINATOR 3800 Information B. 6mm, BCC 4:23 PM DERMATOLOGY C. 7mm, BCC MAIL CLERK Gross A. Received in formalin, lab eled with the patient's name and Skin shave, left medial breast is a 8 x 7 x 1 mm shave biopsy of skin. The specimen is marked with green ink, bisected, and submitted entirely in one cassette. 07/07/2019 [facility] 3800 Description 4:23 PM DERMATOLOGY B. Received in formalin, lab eled with the patient's name and Skin shave, right upper arm is a 9 x 7 x 1 mm shave biopsy of skin. The specimen is marked with black ink, bisected, and submitted entirely in one cassette. MAIL CLERK C. Received in formalin, lab eled with the patient's name and Skin shave, right distal lateral lower leg is a 9 x 7 x 1 mm shave biopsy of skin. The specimen is marked with blue ink, trisected, and submitted entirely in one cassette. NW Microscopic Microscopic 07/07/2019 [facility] 3800 Description examination is 4:23 PM DERMATOLOGY performed. MAIL CLERK Embedded 07/07/2019 [facility] 3800 Images 4:23 PM DERMATOLOGY MAIL CLERK Specimen (Source) Anatomical Collection Method Collection Time Re ceived Time Location / / Volume Laterality Skin SHAVE BIOPSY OF 07/03/2019 3:09 0 8:25 SKIN / Unknown PM MAIL CLERK AM MAIL CLERK Skin structure SHAVE BIOPSY OF 07/03/2019 3:09 020 8:25 (body structure) SKIN / Unknown PM MAIL CLERK AM MAIL CLERK Skin structure SHAVE BIOPSY OF 07/03/2019 3:09 020 8:25 (body structure) SKIN / Unknown PM MAIL CLERK AM MAIL CLERK Julio C Coe MD LAB PATHOLOGY Performing Organization Address City/State/[facility] Code Phon e Number [facility] 3800 DERMATOLOGY [address] [place], [place] [address] documented in this encounter Visit Diagnoses Diagnosis [...] site documented in this encounter Care Teams Acid Filler Relationship Specialty Start Date End Date Sheeba Castillo, SWING FRAME GRINDER OPERATOR, CENTRAL OFFICE OPERATOR SUPERVISOR PCP - General Nurse Practitioner 07/20/16 [address] [place] [address] documented as of this encounter
--- OUTSIDE RECORDS SUMMARY | 2022-05-09 19:22 | XMS_ITS | Encounter Summary ---
:1975 Author Organization [employer] Address [address] [place] [address] Care Team Providers Name Role Phone Sheeba Castillo APRN, SIERRA Primary Care Provider [phone] Reason for Visit Reason Comments Wound Check Encounter Details Date Type Department Care Team Description 07/08/2019 Nursing Visit [facility] Nurse, Guerrero Austen Visit for wound check [id number] [address] [facility] (Primary Dx) [place] [address] Social History Tobacco Use Types Packs/Day Years Used Date Smoking Tobacco: Former Cigarettes 0.3 15 Quit : 04/25/2015 Smokeless Tobacco: Never Alcohol Use Standard Drinks/Week Comments Yes 3 (1 standard drink = 0.6 oz pure alcoho l) 3 drinks a week Sex Assigned at Date Recorded Female 05/09/2021 7:19 PM DETAIL SERGEANT documented as of this encounter Progress Notes Chelsey Knowles RN - 07/08/2019 3:35 PM CST Patient stopped by front desk specialist to see if a nurse could look [...] she has any more questions or concerns. IL SERGEANT documented in this encounter Plan of Treatment Upcoming Encounters Date Type Specialty Care Team Description 05/12/2022 Hospital Encounter Chemo Therapy/Infusion Services 09/15/2022 Telemedicine Gastroenterology Euesbio Haines MD [address] [place], [place] [address] documented as of this encounter Visit Diagnoses Diagnosis Visit for wound check - Primary Encounter for other specified aftercare documented in this encounter Care Teams Storm Sash Maker Relationship Specialty Start Date End Date Sheeba Castillo APRN, TEACHER COUNSELOR PCP - General Nurse Practitioner 07/20/16 [address] [place] [id number] documented as of this encounter
--- OUTSIDE RECORDS SUMMARY | 2022-05-09 19:22 | XMS_ITS | Encounter Summary ---
:1975 Author Organization [employer] Address [address] [place] [address] Care Team Providers Name Role Phone Sheeba Castillo APRN, CNP Primary Care Provider [phone] Reason for Visit Reason Comments APPOINTMENT REQUEST Encounter Details Date Type Department Care Team Description 05/05/2019 Telephone [facility] POINTMENT REQUEST Clinicians RUDY Hill, SIERRA [address] [place], [place] Rick [phone] [place], [place] [phone] (Wo rk) Social History Tobacco Use Types Packs/Day Years Used Date Smoking Tobacco: Former Cigarettes 0.3 15 Quit : 04/25/2015 Smokeless Tobacco: Never Alcohol Use Standard Drinks/Week Comments Yes 3 (1 standard drink = 0.6 oz pure alcoho l) 3 drinks a week Sex Assigned at Date Recorded Female 05/09/2021 7:19 PM ENFORCEMENT MANAGER documented as of this encounter Nursing Notes Manfred Azevedo RN - 05/12/2019 11:07 AM CST Per therapy plan, remicade approved. Auth Dates: 05/05/2019-05/05/2020 Auth #: [id number] Patient has next two infusions scheduled 05/16, 06/13. Left message to call back to move up f/u appt with Dionicio Hinojosa. Currently scheduled for 07/02/2019. Addendum: verbally discussed with Dionicio Hinojosa. 07/02/2019 appointment okay. Patient to return call to clinic sooner if not doing well. RCEMENT MANAGER Manfred Azevedo, RN - 05/05/2019 10:47 AM CST PA submitted 05/05/19 by [facility] PA Team. RCEMENT MANAGER Suzan Hernandez APRN, SENIOR OFFICE SUPPORT ASSISTANT SOSA - 05/05/2019 10:04 AM CST Discharging to home today after UC flare, needs 1) got 1st dose Remicade inpatient 5mg/kg on 05/03. Will need next induction doses arranged. [facility], so schedule them there. Looks like Florecita already put in the Therapy Plan. 2) clinic followup with Micaela 3 weeks. RCEMENT MANAGER documented in this encounter Plan of Treatment Upcoming Encounters Date Type Specialty Care Team Description 05/12/2022 Hospital Encounter Chemo Therapy/Infusion Services 09/15/2022 Telemedicine Gastroenterology Eusebio Haines MD [address] [place], [place] [address] documented as of this encounter Visit Diagnoses Not on filedocumented in this encounter Care Teams Ballet Soloist Relationship Specialty Start Date End Date Sheeba Castillo APRN, SENIOR OFFICE SUPPORT ASSISTANT SOSA PCP - General Nurse Practitioner 07/20/16 [address] [place] [id number] documented as of this encounter
--- OUTSIDE RECORDS SUMMARY | 2022-05-09 19:22 | XMS_ITS | Encounter Summary ---
:1975 Author Organization [employer] Address [address], [place] [address] Care Team Providers Name Role Phone Sheeba Castillo APRN, CNP Primary Care Provider [phone] Reason for Visit Reason Comments Post Hospital Discharge Follow Up Encounter Details Date Type Department Care Team Description 05/06/2019 Telephone [facility] Sheeba Castillo, [facility] Medicine [place] [address] [address] [place] [address] [place] [address] [phone] (Wo rk) Social History Tobacco Use Types Packs/Day Years Used Date Smoking Tobacco: Former Cigarettes 0.3 15 Quit : 04/25/2015 Smokeless Tobacco: Never Alcohol Use Standard Drinks/Week Comments Yes 3 (1 standard drink = 0.6 oz pure alcoho l) 3 drinks a week Sex Assigned at Date Recorded Female 05/09/2021 7:19 PM SPLICING MACHINE OPERATOR documented as of this encounter Nursing Notes Siria Henson RN - 05/06/2019 10:57 AM CST Post discharge text message was sent to the patient. Patient response indicated that they do not have a current issue or concern, no further action taken. Future Appointments Date Time Provider Department Center 05/13/2019 4:00 PM Sandro Jenkins MD [facility] 07/01/2019 4:20 PM Elin Christopher AV [facility] 07/02/2019 3:40 PM Faye Hinojosa APRN, APPLIQUE CUTTER [facility] PN L[facility] C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 Plan of Treatment Upcoming Encounters Date Type Specialty Care Team Description 05/12/2022 Hospital Encounter Chemo Therapy/Infusion Services 09/15/2022 Telemedicine Gastroenterology Eusebio Haines MD [address] [place], [place] [address] documented as of this encounter Visit Diagnoses Not on filedocumented in this encounter Care Teams Application Processor Relationship Specialty Start Date End Date Sheeba Castillo APRN, APPLIQUE CUTTER PCP - General Nurse Practitioner 07/20/[address] [place] [id number] documented as of this encounter
--- OUTSIDE RECORDS SUMMARY | 2022-05-09 19:22 | XMS_ITS | Encounter Summary ---
:1975 Author Organization [employer] Address [address] [place] [address] Care Team Providers Name Role Phone Sheeba Castillo APRN, SIERRA Primary Care Provider [phone] Encounter Details Date Type Department Care Team Description 07/18/2019 Lab Visit [facility] Left sided ulcerative [address] [facility] (chronic) colitis (HRC) [place] [address] (Primary Dx) [phone] Social History Tobacco Use Types Packs/Day Years Used Date Smoking Tobacco: Former Cigarettes 0.3 15 Quit : 04/25/2015 Smokeless Tobacco: Never Alcohol Use Standard Drinks/Week Comments Yes 3 (1 standard drink = 0.6 oz pure alcoho l) 3 drinks a week Sex Assigned at Date Recorded Female 05/09/2021 7:19 PM CHIEF CONTROLLER documented as of this encounter Plan of Treatment Upcoming Encounters Date Type Specialty Care Team Description 05/12/2022 Hospital Encounter Chemo Therapy/Infusion Services 09/15/2022 Telemedicine Gastroenterology Eusebio Haines MD [address] [place], [place] [address] documented as of this encounter Procedures Procedure Name Priority Date/Time Associated Diagnosis Comme nts CONTAINER TEST Routine 07/18/2019 12:32 PM Left sided ulcerati ve Results for this CHIEF CONTROLLER (chronic) colitis procedure are in the (HR) results section . documented in this encounter Results CONTAINER TEST (07/18/2019 12:32 PM CHIEF CONTROLLER) P athologist Signature Container Done 07/18/2019 [facility] 2:00 PM [facility]ER [facility] Specimen Anatomical Collection Method Collection Time Receive d Time (Source) Location / / Volume Laterality Other Specimen 07/18/2019 12:32 0 Type PM CHIEF CONTROLLER 12:32 PM CHIEF CONTROLLER Faye Felton APRN, CNP LAB_1 Performing Organization Address City/State/ZIP Code Phon e Number [facility] [address] [place] [address] documented in this encounter Visit Diagnoses Diagnosis Left sided ulcerative (chronic) colitis (HRC) - Primary Left sided ulcerative (chronic) colitis documented in this encounter Care Teams Blind Eyeletter Relationship Specialty Start Date End Date Sheeba Castillo APRN, CAPITAL CAMPAIGN FUNDRAISER PCP - General Nurse Practitioner 07/20/16 [address] [facility] [place] [id number] documented as of this encounter
--- OUTSIDE RECORDS SUMMARY | 2022-05-09 19:22 | XMS_ITS | Encounter Summary ---
:1975 Author Organization [employer] Address [address], [place] [address] Care Team Providers Name Role Phone Sheeba Castillo CRYOGENICS REPAIRER, BUTTON BROACHER Primary Care Provider [phone] Encounter Details Date Type Department Care Team Description 05/13/2019 Notes/Orders [facility] [address] F[address] Fel[address] A PRN, Gastroenterology BUTTON BROACHER [address] [place], [place] [address] [place], [place] [phone] (Wo rk) Social History Tobacco Use Types Packs/Day Years Used Date Smoking Tobacco: Former Cigarettes 0.3 15 Quit : 04/25/2015 Smokeless Tobacco: Never Alcohol Use Standard Drinks/Week Comments Yes 3 (1 standard drink = 0.6 oz pure alcoho l) 3 drinks a week Sex Assigned at Date Recorded Female 05/09/2021 7:19 PM STRATEGIC ANALYST documented as of this encounter Plan of Treatment Upcoming Encounters Date Type Specialty Care Team Description 05/12/2022 Hospital Encounter Chemo Therapy/Infusion Services 09/15/2022 Telemedicine Gastroenterology Eusebio Haines MD [address] [place], [place] [address] documented as of this encounter Visit Diagnoses Not on filedocumented in this encounter Care Teams Powder And Primer Canning Leader Relationship Specialty Start Date End Date Sheeba Castillo, RUDY, BUTTON BROACHER PCP - General Nurse Practitioner 07/20/16 [address] [place] [id number] documented as of this encounter
--- OUTSIDE RECORDS SUMMARY | 2022-05-09 19:23 | XMS_ITS | Encounter Summary ---
:1975 Author Organization [employer] Address [address] [place] [address] Care Team Providers Name Role Phone Sheeba Castillo SALSA DANCE INSTRUCTOR, FIELD CONTACT PERSON Primary Care Provider [phone] Reason for Visit Reason Comments RESULTS, TEST Encounter Details Date Type Department Care Team Description 04/24/2019 Telephone [facility] [address] Faye Felton A PRN, RESULTS, TEST Gastroenterology FIELD CONTACT PERSON [address] [place] [address] [phone] [place], [place] [phone] (Wo rk) Social History Tobacco Use Types Packs/Day Years Used Date Smoking Tobacco: Former Cigarettes 0.3 15 Quit : 04/25/2015 Smokeless Tobacco: Never Alcohol Use Standard Drinks/Week Comments Yes 3 (1 standard drink = 0.6 oz pure alcoho l) rarely Sex Assigned at Date Recorded Female 05/09/2021 7:19 PM BALLOON PILOT documented as of this encounter Nursing Notes Charles Duran, RN - 04/25/2019 3:25 PM CDT I [...] here tomorrow and will be away from [facility], but again if she is failing outpatient prednisone may need admit for IV steroids. Charles Duran RN - 04/24/2019 4:05 PM CDT Spoke with patient and gave her the message from Faye Hinojosa EMERGENCY MANAGEMENT DIRECTOR. She has stopped the Celjanz. She did [...] improvement, she may need to present to [facility] for IV steroids +/- inpatient rescue Remicade. [...] back for a message. Faye Hinojosa APRN, SIERRA - 04/24/2019 3:11 PM CDT [facility] lab [...] Services 09/15/2022 Telemedicine Gastroenterology Eusebio Haines MD [address] [place], [place] [address] documented as of this encounter Visit Diagnoses Not on filedocumented in this encounter Care Teams Varying Exceptionalities Teacher Relationship Specialty Start Date End Date Sheeba Castillo APRN, FIELD CONTACT PERSON PCP - General Nurse Practitioner 07/20/16 [address] [place] [phone] documented as of this encounter
--- OUTSIDE RECORDS SUMMARY | 2022-05-09 19:23 | XMS_ITS | Encounter Summary ---
:1975 Author Organization [employer] Address [address] [address] Care Team Providers Name Role Phone Sheeba Castillo APRN, CNP Primary Care Provider [phone] Reason for Referral (Routine) - Closed Specialty Diagnoses / Procedures Referred By Contact Refer red To Contact Procedures Orion Robles MD Endoscopy, sigmoid [address] [place], [place] [address] Referral ID Status Reason Start Date Expiration Date Visits Requ ested Visits Authorized [id number] Closed 05/01/2019 07/30/2020 1 1 DER / CEO Reason for Visit Auth/Cert Specialty Diagnoses / Procedures Referred By Contact Refer red To Contact Diagnoses Ulcerative colitis flare Referral ID Status Reason Start Date Expiration Date Visits Requ ested Visits Authorized [id number] 1 1 Encounter Details Date Type Department Care Team Description 04/30/2019 - Hospital Susie Hunter Md, Hospital Med icine [address] [place], [place] [id number] Ulcerative rectosigmoiditis with rectal bleeding (HRC); 05/05/2019 Encounter General Medicine Burton Acosta DO [address] [place], [place] [id number] Hematochezia [address] Sergio Acosta MD [address] [place], [place] [id number] [facility]. Alejandro Ang MD [address] [place], [place] [address] [facility] Rewati, MD [address] [place], [place] [id number] [place] [address] Social History Tobacco Use Types Packs/Day Years Used Date Smoking Tobacco: Former Cigarettes 0.3 15 Quit : 04/25/2015 Smokeless Tobacco: Never Alcohol Use Standard Drinks/Week Comments Yes 3 (1 standard drink = 0.6 oz pure alcoho l) 3 drinks a week Sex Assigned at Date Recorded Female 05/09/2021 7:19 PM FOUNDER / CEO documented as of this encounter Last Filed Vital Signs Vital Sign Reading Time Taken Comments Blood Pressure 139/97 05/05/2019 7:22 AM FOUNDER / CEO Pulse 90 05/05/2019 7:22 AM FOUNDER / CEO Temperature 36.7 ??C (98 ??F) 05/05/2019 7:22 AM FOUNDER / CEO Respiratory Rate 18 05/05/2019 7:22 AM FOUNDER / CEO Oxygen Saturation 98% 05/05/2019 7:22 AM FOUNDER / CEO Inhaled Oxygen Concentration - - Weight 82.6 kg (182 lb) 04/30/2019 7:03 PM FOUNDER / CEO Height 170.2 cm (5' 7) 04/30/2019 7:03 PM FOUNDER / CEO Body Mass Index 28.51 04/30/2019 7:03 PM FOUNDER / CEO documented in this encounter Discharge Summaries Alejandro Ang MD - 05/05/2019 9:04 AM CST DISCHARGE SUMMARY Patient ID: Idania Duarte [id number] y.o. 1975 Admit date: 04/30/2019 Discharge [...] Your Medications These medications were sent to [facility] [address] [place] [id number] ?? predniSONE 10 MG tablet Code Status: Code status: FULL Follow up: Sheeba Castillo, CORKING MACHINE OPERATOR, LEAD MEDICAL TECHNOLOGIST [address] [place] [address] Schedule in 7-10 days after discharge Future Appointments Provider Department Center 07/01/2019 4:20 PM Elin Christopher; EXAM BLAISE [facility] Recommendations for primary care physician: none See the electronic medical record for full laboratory and diagnostic test results. For full discharge orders and instructions, please see the after visit summary for this hospitalization. Patient was seen by me on day of discharge and was felt stable to leave the hospital. Total time spent on discharge: 35 minutes Alejandro Ang MD [phone] DER / CEO documented in this encounter Discharge Instructions Basia Diggs, PharmD - 05/05/2019 9:24 AM CST You [...] noon with your lunch. Basia Childs, Surya, BCPS 05/05/2019, 9:24 AM DER / CEO documented in this encounter Medications at Time [...] as of this encounter Progress Notes Acosta Farrell, RN - 05/05/2019 1:47 PM CST DISCHARGE O: Patient safely discharged to home. D: Patient is alert and oriented x 4. Pt up independently . Discharge criteria met. Vaccines addressed prior to discharge. A: Discharge instructions and medications reviewed and given to patient. Written medication education material provided on steroids including possible side effects. Prescriptions filled by [facility] pharmacy. Belongings checklist reviewed with patient and belongings sent. Equipment sent: none. Supplies sent none. Care plan issues addressed and education record updated. R: Patient verbalizes understanding and teaches back discharge instructions. Patient discharged by: ambulation with family. Acosta Farrell RN 05/05/2019, 1:48 PM DER / CEO Suzan Hernandez APRN, [facility] - 05/05/2019 9:59 AM CST GASTROENTEROLOGY DAILY [...] Remicade infusions weeks 2,6, q8 ongoing. ?? DER / CEO Sunita Ruelas MD - 05/04/2019 1:03 PM CST Images from the original note were not included. RTWORKINTERNAL MEDICINE HOSPITALIST PROGRESS NOTE PRIMARY CARE PHYSICIAN: Dr. Sheeba Castillo, RUDY, LEAD MEDICAL TECHNOLOGIST DATE OF ADMISSION: 04/30/2019 BRIEF DETAILS OF ADMISSION HPI Brief ROSEBUD: She was admitted with abdominal pain rectal [...] taper prednisone plans, Got remicaide 05/03/2019, monitoring nother day due to recurring rectal stool_blood diarrhea, If well can likely discharge in am with outpatient GI (Gastroenterology) follow up post dischage from the hospital. If not well plan is restart IV STEROIDS Otherwise All infectious studies negative till date so far, was seen by GI (Gastroenterology) and Flex sig11 ??Mayo3 severe proctitis with endoscopically quiescent sigmoid [...] guarding Ext: no clubbing, cyanosis, or edema PARTS REMOVER: no FND ACTIVE MEDICATIONS IN HOSPITAL ??? [...] Ruelas MD, Hospitalist, Internal Medicine Tt35/cc25 [facility] Hospitalist and Geriatrics services Beeper [phone] After Hours Please call environmental permitting specialist service evening staff from [email or web address], password is [email or web address] DER / CEO Eileen Bernabe, RUDY, LEAD MEDICAL TECHNOLOGIST - 05/04/2019 11:47 AM CST GI PROGRESS [...] without flaring. IV steroids discontinued yesterday, oral [id number] given this am. Received Remicade 5mg/kg IV [...] 348 05/01/2019 Imaging: Reviewed in full. Flex sig11/ per endoscopist: Yonatan??3 severe proctitis with endoscopically [...] Remicade infusions. Eileen Bernabe APRN, [facility] Gastroenterology DER / CEO Sunita Ruelas MD - 05/03/2019 1:44 PM CST Images from the original note were not included. RTWORKINTERNAL MEDICINE HOSPITALIST PROGRESS NOTE PRIMARY CARE PHYSICIAN: Dr. Sheeba Castillo, RUDY, LEAD MEDICAL TECHNOLOGIST DATE OF ADMISSION: 04/30/2019 BRIEF DETAILS OF ADMISSION HPI Brief ROSEBUD: She was admitted with abdominal pain rectal [...] guarding Ext: no clubbing, cyanosis, or edema PARTS REMOVER: no FND ACTIVE MEDICATIONS IN HOSPITAL ??? [...] in the last 72 hours. Recent Labs 04/30/19194505/01/19631 WBC 15.9* 14.6* HGB 14.1 12.6 PLTS 390 348 INR 0.9 1.0 Recent Labs 04/30/19194505/01/1932 05/02/1915 05/02/19211205/03/19618 SODIUM 137 136 -- -- -- -- K 3.0* 3.9 < > 3.9 4.2 4.7 CHLORIDE 100 104 -- -- -- -- BICARB 27 23 -- -- -- -- BUN 13 10 -- -- -- -- CREATININE 0.73 0.62 -- 0.57 -- 0.67 < > = values in this interval not displayed. Recent Labs 04/30/19194505/01/1932 05/03/1919 MG 2.0 1.8 2.2 Recent Labs 04/30/191945 ALKPHOS 46 ALT 23 AST 14 BILIRUBINDIR 0.1 ALB 3.3* No results for input(s): TROP in the last 72 hours. Recent Labs 04/30/19194505/01/19 0632 GLUCOSE 114* 153* Sunita Ruelas MD, Hospitalist, Internal Medicine Tt35/cc25 [facility] Beeper [phone] After Hours Please call environmental permitting specialist service evening staff from [email or web address], password is [email or web address] DER / CEO Eileen Bernabe, CORKING MACHINE OPERATOR, LEAD MEDICAL TECHNOLOGIST - 05/03/2019 12:23 PM CST GI PROGRESS [...] infusions. ?? Eileen Bernabe APRN, [facility] Gastroenterology DER / CEO Orion Robles MD - 05/02/2019 6:11 PM [...] in NAD. Vital Signs: Reviewed. Please see [facility] for completed details. BP 129/79 (BP Location: [...] Labs, Imaging and Endoscopy: Reviewed. Please see [facility] for complete details. CRP still normal Fecal [...] concerns. Orion Robles MD Department of Gastroenterology [facility] DER / CEO Alejandro Ang MD - 05/02/2019 11:24 AM [...] Dispo: home 2-3 days Alejandro Ang MD [phone] Total time: 25 minutes, >50% of which was spent counseling and coordinating care DER / CEO Monique Song RN - 05/01/2019 4:13 PM CST Vitial signs, oxygen saturations, LOC every 5 minutes during procedure. Patient placed on 2 liters oxygen to keep oxgyen above 90 percent. Patient tolerated procedure fine. Specimens collected and verified in jar with doctor and myself after completion of procedure. Patient VSS, denies pain, going to recovery. aware of having Lovenox this AM. DER / CEO Alejandro Ang MD - 05/01/2019 9:42 AM [...] Procedure Abnormality Status --------- ------ Complete Blood Count-W/Diff[[id number]] Abnormal Final result Please view results for [...] Procedure Abnormality Status --------- ------ Complete Blood Count-W/Diff[[id number]] Abnormal Final result Please view results for [...] Dispo: home 1-2 days Alejandro Ang MD [phone] Total time: 35 minutes, >50% of which was spent counseling and coordinating care DER / CEO Lucy Torres, RN - 04/30/2019 6:58 PM CST ADMIT [...] monitor. Lucy Torres RN 6:58 PM 04/30/2019 DER / CEO documented in this encounter Procedure Notes Orion [...] scope was passed under direct vision. The [id number] was introduced through the anus and advanced [...] per GI Procedure Code(s): --- Professional --- 16220, Sigmoidoscopy, flexible; with biopsy, single or multiple G0500, Moderate sedation services provided by the same physician or other qualified health home care chaplain performing a gastrointestinal endoscopic service that sedation supports, requiring the presence of an independent trained observer to assist in the monitoring of the patient's level of consciousness and physiological status; initial 15 minutes of intra-service time; patient age 5 years or older (additional time may be reported with 23977, as appropriate) Diagnosis Code(s): --- Professional --- K51.50, Left sided colitis without complications CPT copyright 2018 [employer]. All rights reserved. The codes documented in this report are preliminary and upon pen tender review may be revised to meet current compliance requirements. Orion Robles, 05/01/2019 4:34:47 PM Number of Addenda: 0 Note Initiated On: 05/01/2019 3:27 PM Endoscopy Report DER / CEO documented in this encounter Consult Notes Orion Robles MD - 05/01/2019 4:29 PM CSTAssociated Order(s): CONSULT GASTROENTEROLOGY Images from the original note were not included. Gastroenterology Consultation Note Name: Idania Duarte : 1975 CSN: [id number] Date of Service: 05/01/2019 Consulting Provider: Orion [...] induced aremission (2016); restarted on taper in January, but unable [...] otherwise. Past Medical History: Reviewed. Please see GoGoVan for complete details. Past Medical History: Diagnosis Date ??? BCC (basal cell carcinoma), leg 08/11/2011 ??? BP (high blood pressure) (HRC) ??? Chronic headaches 08/11/2011 ??? Clostridium difficile colitis 01/2012 ??? Concussion 08/11/2011 ??? HTN (hypertension) (HRC) 08/11/2011 ??? Hx of tonsillectomy 08/11/2011 ??? Irritable bowel syndrome 11/29/2002 ??? 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 Obesity (HRC) 08/11/2011 Past Surgical History: Reviewed. Please see [employer] for complete details. Past Surgical History: Procedure Laterality Date ??? CYST REMOVAL left wrist ??? LAP CHOLECYSTECTOMY 07/12/2016 ??? TONSILLECTOMY Medications: Reviewed. Please see [employer] for complete details. Medications prior to admission [...] times a day. Allergies: Reviewed. Please see [employer] for complete details. No Known Allergies Social History: Reviewed. Please see [employer] for complete details. Social History Socioeconomic History ??? Marital status: Single Spouse name: Not on file ??? Number of children: 0 ??? Years of education: Not on file ??? Highest education level: Not on file Occupational History ??? 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 Financial [...] file Gets together: Not on file Attends mosque service: Not on file Active member of [...] Yes Social History Narrative . Works in [employer] at [employer]. 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 Family History: Reviewed. Please see GoGoVan for complete details. No known history of [...] appropriate eye contact. Labs: Reviewed. Please see [facility] and HPI for complete details. Imaging: I personally reviewed the imaging pertinent to today's visit. Please see [facility] and HPI for complete details. Endoscopy: Reviewed. Please see [facility] and HPI for complete details. Impression/Recommendations: Mrs. Duarte is [...] concerns. Orion Robles MD Department of Gastroenterology [facility] DER / CEO documented in this encounter OR Notes H&P - Sergio Potter MD - 04/30/2019 9:40 PM CST HISTORY AND PHYSICAL Admit Date: 04/30/2019 Primary provider: Sheeba Castillo APRN, LEAD MEDICAL TECHNOLOGIST Assessment and Plan Idania Duarte is a [...] Not on file Occupational History ??? 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 Financial [...] file Gets together: Not on file Attends mosque service: Not on file Active member of [...] Yes Social History Narrative . Works in [employer] at [employer]. 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 Family History Problem Relation [...] appropriate Imaging and lab data reviewed in [facility]. ECG: NA Imaging: NA Labs: - Pending at time of note being signed Total Time: 72 minutes; >50% spent counseling patient/family and coordinating care. Will MD [facility] Hospitalist Service [phone] DER / CEO documented in this encounter Plan of Treatment Upcoming Encounters Date Type Specialty Care Team Description 05/12/2022 Hospital Encounter Chemo Therapy/Infusion Services 09/15/2022 Telemedicine Gastroenterology Eusebio Haines MD [address] [place] [address] documented as of this encounter Procedures Procedure Name Priority Date/Time Associated Comments Diagnosis POTASSIUM Routine 05/05/2019 6:23 Results for this AM FOUNDER / CEO procedure are i n the results section. C-REACTIVE PROTEIN Routine 05/04/2019 12:35 Resul ts for this PM FOUNDER / CEO procedure are i n the results section. POTASSIUM Specified Time 05/04/2019 12:35 Results f or this PM FOUNDER / CEO procedure are i n the results section. BEDSIDE GLUCOSE Routine 05/04/2019 12:03 Results for this MONITOR POCT PM FOUNDER / CEO procedure are i n the results section. BEDSIDE GLUCOSE Routine 05/04/2019 7:33 Results f or this MONITOR POCT AM FOUNDER / CEO procedure are i n the results section. POTASSIUM Routine 05/04/2019 6:37 Results for this AM FOUNDER / CEO procedure are i n the results section. BEDSIDE GLUCOSE Routine 05/03/2019 9:25 Results f or this MONITOR POCT PM FOUNDER / CEO procedure are i n the results section. BEDSIDE GLUCOSE Routine 05/03/2019 6:19 Results f or this MONITOR POCT PM FOUNDER / CEO procedure are i n the results section. BEDSIDE GLUCOSE Routine 05/03/2019 12:10 Results for this MONITOR POCT PM FOUNDER / CEO procedure are i n the results section. CREATININE / GFR Routine 05/03/2019 6:19 Results for this AM FOUNDER / CEO procedure are i n the results section. MAGNESIUM Routine 05/03/2019 6:19 Results for this AM FOUNDER / CEO procedure are i n the results section. POTASSIUM Routine 05/03/2019 6:19 Results for this AM FOUNDER / CEO procedure are i n the results section. POTASSIUM Specified Time 05/02/2019 9:13 Results fo r this PM FOUNDER / CEO procedure are i n the results section. BEDSIDE GLUCOSE Routine 05/02/2019 9:11 Results f or this MONITOR POCT PM FOUNDER / CEO procedure are i n the results section. BEDSIDE GLUCOSE Routine 05/02/2019 6:04 Results f or this MONITOR POCT PM FOUNDER / CEO procedure are i n the results section. BEDSIDE GLUCOSE Routine 05/02/2019 12:04 Results for this MONITOR POCT PM FOUNDER / CEO procedure are i n the results section. CREATININE / GFR Routine 05/02/2019 6:15 Results for this AM FOUNDER / CEO procedure are i n the results section. C-REACTIVE PROTEIN Add-On 05/02/2019 6:15 Result s for this AM FOUNDER / CEO procedure are i n the results section. POTASSIUM Add-On 05/02/2019 6:15 Results for this AM FOUNDER / CEO procedure are i n the results section. POTASSIUM Specified Time 05/02/2019 2:51 Results fo r this AM FOUNDER / CEO procedure are i n the results section. BEDSIDE GLUCOSE Routine 05/01/2019 9:37 Results f or this MONITOR POCT PM FOUNDER / CEO procedure are i n the results section. FECAL CALPROTECTIN Routine 05/01/2019 9:24 Result s for this PM FOUNDER / CEO procedure are i n the results section. BEDSIDE GLUCOSE Routine 05/01/2019 5:27 Results f or this MONITOR POCT PM FOUNDER / CEO procedure are i n the results section. SURGICAL PATHOLOGY, Routine 05/01/2019 4:16 Resul ts for this GI PM FOUNDER / CEO procedure are i n the results section. ENDOSCOPY, SIGMOID Routine 05/01/2019 3:27 Result s for this PM FOUNDER / CEO procedure are i n the results section. POTASSIUM Routine 05/01/2019 2:55 Results for this PM FOUNDER / CEO procedure are i n the results section. BEDSIDE GLUCOSE Routine 05/01/2019 12:41 Results for this MONITOR POCT PM FOUNDER / CEO procedure are i n the results section. C-REACTIVE PROTEIN Routine 05/01/2019 9:35 Result s for this AM FOUNDER / CEO procedure are i n the results section. BEDSIDE GLUCOSE Routine 05/01/2019 7:32 Results f or this MONITOR POCT AM FOUNDER / CEO procedure are i n the results section. CBC AND DIFFERENTIAL Routine 05/01/2019 6:32 Resu lts for this PANEL AM FOUNDER / CEO procedure are i n the results section. COMPLETE BLOOD Routine 05/01/2019 6:32 Results fo r this COUNT-W/DIFF AM FOUNDER / CEO procedure are i n the results section. BASIC METABOLIC Routine 05/01/2019 6:32 Results f or this PANEL AM FOUNDER / CEO procedure are i n the results section. MAGNESIUM Routine 05/01/2019 6:32 Results for this AM FOUNDER / CEO procedure are i n the results section. INR/PROTIME Routine 05/01/2019 6:32 Results for this AM FOUNDER / CEO procedure are i n the results section. CBC AND DIFFERENTIAL STAT 04/30/2019 7:46 Resu lts for this PANEL PM FOUNDER / CEO procedure are i n the results section. COMPLETE BLOOD STAT 04/30/2019 7:46 Results fo r this COUNT-W/DIFF PM FOUNDER / CEO procedure are i n the results section. LIVER PANEL(HEPATIC Routine 04/30/2019 7:46 Resul ts for this FUNCTION PANEL) PM FOUNDER / CEO procedure ar e in the results section. BASIC METABOLIC STAT 04/30/2019 7:46 Results f or this PANEL PM FOUNDER / CEO procedure are i n the results section. MAGNESIUM STAT 04/30/2019 7:46 Results for this PM FOUNDER / CEO procedure are i n the results section. C-REACTIVE PROTEIN Routine 04/30/2019 7:46 Result s for this PM FOUNDER / CEO procedure are i n the results section. INR/PROTIME STAT 04/30/2019 7:46 Results for this PM FOUNDER / CEO procedure are i n the results section. ESR Routine 04/30/2019 7:46 Results for this PM FOUNDER / CEO procedure are i n the results section. documented in this encounter Results Potassium (05/05/2019 6:23 AM FOUNDER / CEO) athologist Signature Potassium 3.6 3.5 - 5.1 05/05/2019 [facility] mmol/L 6:49 AM FOUNDER / CEO LABORATORY Specimen Anatomical Collection Method / Collection Time Recei peña Time (Source) Location / Volume Laterality Blood Venipuncture / 05/05/2019 6:23 05/05/2019 6:34 Unknown AM FOUNDER / CEO AM FOUNDER / CEO Sergio Potter MD LAB_1 Performing Organization Address City/[facility] Code Phon e Number [facility] [address] [place] [address] Potassium (05/04/2019 12:35 PM FOUNDER / CEO) athologist Signature Potassium 4.2 3.5 - 5.1 05/04/2019 [facility] mmol/L 12:48 PM FOUNDER / CEO LABORATORY Specimen Anatomical Collection Method / Collection Time Recei peña Time (Source) Location / Volume Laterality Blood Venipuncture 05/04/2019 12:35 05/04/2019 Butterfly / Unknown PM FOUNDER / CEO 12:37 PM FOUNDER / CEO Sunita Ruelas MD LAB_1 Performing Organization Address [facility] Phon e Number [facility] [address] [place] [address] C Reactive Protein (05/04/2019 12:35 PM FOUNDER / CEO) athologist Signature C-Reactive 0.2 0.0 - 0.7 05/04/2019 [facility] Protein mg/dL 12:55 PM FOUNDER / CEO LABORATORY Specimen Anatomical Collection Method / Collection Time Recei peña Time (Source) Location / Volume Laterality Blood Venipuncture 05/04/2019 12:35 05/04/2019 Butterfly / Unknown PM FOUNDER / CEO 12:37 PM FOUNDER / CEO Eileen Bernabe CORKING MACHINE OPERATOR, LEAD MEDICAL TECHNOLOGIST LAB_1 Performing Organization Address [facility] Phon e Number [facility] [address] [place] [address] Bedside Glucose Monitor (05/04/2019 12:03 PM FOUNDER / CEO) athologist Signature Glucose, Whole 85 70 - 180 05/04/2019 [facility] Blood mg/dL 12:15 PM FOUNDER / CEO LABORATORY Specimen Anatomical Collection Method Collection Time Receive d Time (Source) Location / / Volume Laterality Blood 05/04/2019 12:03 05/04/2019 PM FOUNDER / CEO 12:15 PM FOUNDER / CEO Sunita Ruelas MD LAB_1 Performing Organization Address [facility] Phon e Number [facility] [address] [place] [address] Bedside Glucose Monitor (05/04/2019 7:33 AM FOUNDER / CEO) athologist Signature Glucose, Whole 83 70 - 180 05/04/2019 [facility] Blood mg/dL 8:05 AM FOUNDER / CEO LABORATORY Specimen Anatomical Collection Method Collection Time Receive d Time (Source) Location / / Volume Laterality Blood 05/04/2019 7:33 AM 9 8:05 FOUNDER / CEO AM FOUNDER / CEO Sunita Ruelas MD LAB_1 Performing Organization Address [facility] Phon e Number [facility] [address] [place] [address] Potassium (05/04/2019 6:37 AM FOUNDER / CEO) athologist Signature Potassium 3.6 3.5 - 5.1 05/04/2019 [facility] mmol/L 6:59 AM FOUNDER / CEO LABORATORY Specimen Anatomical Collection Method / Collection Time Recei peña Time (Source) Location / Volume Laterality Blood Venipuncture / 05/04/2019 6:37 05/04/2019 6:41 Unknown AM FOUNDER / CEO AM FOUNDER / CEO Sergio Potter MD LAB_1 Performing Organization Address City/[facility]/ZIP Code Phon e Number [facility] [address] [place] [address] Bedside Glucose Monitor (05/03/2019 9:25 PM FOUNDER / CEO) P athologist Signature Glucose, Whole 110 70 - 180 05/03/2019 [facility] Blood mg/dL 9:30 PM FOUNDER / CEO LABORATORY Specimen Anatomical Collection Method Collection Time Receive d Time (Source) Location / / Volume Laterality Blood 05/03/2019 9:25 PM 9 9:30 FOUNDER / CEO PM FOUNDER / CEO Sunita Ruelas MD LAB_1 Performing Organization Address [facility] Phon e Number [facility] [address] [place] [address] Bedside Glucose Monitor (05/03/2019 6:19 PM FOUNDER / CEO) P athologist Signature Glucose, Whole 133 70 - 180 05/03/2019 [facility] Blood mg/dL 6:25 PM FOUNDER / CEO LABORATORY Specimen Anatomical Collection Method Collection Time Receive d Time (Source) Location / / Volume Laterality Blood 05/03/2019 6:19 PM 9 6:25 FOUNDER / CEO PM FOUNDER / CEO Sunita Ruelas MD LAB_1 Performing Organization Address City/[facility] Phon e Number [facility] [address] [place] [address] Bedside Glucose Monitor (05/03/2019 12:10 PM FOUNDER / CEO) P athologist Signature Glucose, Whole 129 70 - 180 05/03/2019 [facility] Blood mg/dL 12:30 PM FOUNDER / CEO LABORATORY Specimen Anatomical Collection Method Collection Time Receive d Time (Source) Location / / Volume Laterality Blood 05/03/2019 12:10 05/03/2019 PM FOUNDER / CEO 12:30 PM FOUNDER / CEO Sunita Ruelas MD LAB_1 Performing Organization Address City/[facility] Phon e Number [facility] [address] [place] [address] Creatinine / GFR (05/03/2019 6:19 AM FOUNDER / CEO) athologist Signature Creatinine 0.67 0.55 - 05/03/2019 [facility] 1.02 mg/dL 7:07 AM FOUNDER / CEO LABORATORY GFR, Estimated >60 >60 05/03/2019 [facility] mL/min/1.7 7:07 AM FOUNDER / CEO LABORATORY 3m2 GFR, Est If >60 >60 05/03/2019 [facility] mL/min/1.7 7:07 AM FOUNDER / CEO LABORATORY [place] 3m2 Specimen Anatomical Collection Method / Collection Time Recei peña Time (Source) Location / Volume Laterality Blood Venipuncture / 05/03/2019 6:19 05/03/2019 6:32 Unknown AM FOUNDER / CEO AM FOUNDER / CEO Sergio Potter MD LAB_1 Performing Organization Address [facility] Phon e Number [facility] [address] [place] [address] Potassium (05/03/2019 6:19 AM FOUNDER / CEO) athologist Signature Potassium 4.7 3.5 - 5.1 05/03/2019 [facility] mmol/L 7:07 AM FOUNDER / CEO LABORATORY Specimen Anatomical Collection Method / Collection Time Recei peña Time (Source) Location / Volume Laterality Blood Venipuncture / 05/03/2019 6:19 05/03/2019 6:32 Unknown AM FOUNDER / CEO AM FOUNDER / CEO Sergio Potter MD LAB_1 Performing Organization Address [facility] Phon e Number [facility] [address] [place] [address] Magnesium (05/03/2019 6:19 AM FOUNDER / CEO) athologist Signature Magnesium 2.2 1.6 - 2.6 05/03/2019 [facility] mg/dL 7:07 AM FOUNDER / CEO LABORATORY Specimen Anatomical Collection Method / Collection Time Recei peña Time (Source) Location / Volume Laterality Blood Venipuncture / 05/03/2019 6:19 05/03/2019 6:32 Unknown AM FOUNDER / CEO AM FOUNDER / CEO Alejandro Ang MD LAB_1 Performing Organization Address [facility] Phon e Number [facility] [address] [place] [address] Potassium (05/02/2019 9:13 PM FOUNDER / CEO) athologist Signature Potassium 4.2 3.5 - 5.1 05/02/2019 [facility] mmol/L 9:31 PM FOUNDER / CEO LABORATORY Specimen Anatomical Collection Method / Collection Time Recei peña Time (Source) Location / Volume Laterality Blood Venipuncture / 05/02/2019 9:13 05/02/2019 9:18 Unknown PM FOUNDER / CEO PM FOUNDER / CEO Alejandro Ang MD LAB_1 Performing Organization Address City/[facility] Phon e Number [facility] [address] [place] [address] (ABNORMAL) Bedside Glucose Monitor (05/02/2019 9:11 PM FOUNDER / CEO) athologist Signature Glucose, Whole 183 (H) 70 - 180 05/02/2019 [facility] Blood mg/dL 9:15 PM FOUNDER / CEO LABORATORY Specimen Anatomical Collection Method Collection Time Receive d Time (Source) Location / / Volume Laterality Blood 05/02/2019 9:11 PM 9 9:15 FOUNDER / CEO PM FOUNDER / CEO Alejandro Ang MD LAB_1 Performing Organization Address City/[facility] Phon e Number [facility] [address] [place] [address] Bedside Glucose Monitor (05/02/2019 6:04 PM FOUNDER / CEO) athologist Signature Glucose, Whole 128 70 - 180 05/02/2019 [facility] Blood mg/dL 6:10 PM FOUNDER / CEO LABORATORY Specimen Anatomical Collection Method Collection Time Receive d Time (Source) Location / / Volume Laterality Blood 05/02/2019 6:04 PM 9 6:10 FOUNDER / CEO PM FOUNDER / CEO Alejandro Ang MD LAB_1 Performing Organization Address City/[facility] Phon e Number [facility] [address] [place] [address] Bedside Glucose Monitor (05/02/2019 12:04 PM FOUNDER / CEO) athologist Signature Glucose, Whole 117 70 - 180 05/02/2019 [facility] Blood mg/dL 12:10 PM FOUNDER / CEO LABORATORY Specimen Anatomical Collection Method Collection Time Receive d Time (Source) Location / / Volume Laterality Blood 05/02/2019 12:04 05/02/2019 PM FOUNDER / CEO 12:10 PM FOUNDER / CEO Alejandro Ang MD LAB_1 Performing Organization Address City/[facility] Phon e Number [facility] [address] [place] [address] Potassium (05/02/2019 6:15 AM FOUNDER / CEO) athologist Signature Potassium 3.9 3.5 - 5.1 05/02/2019 [facility] mmol/L 3:53 PM FOUNDER / CEO LABORATORY Specimen Anatomical Collection Method / Collection Time Recei peña Time (Source) Location / Volume Laterality Blood Venipuncture / 05/02/2019 6:15 05/02/2019 6:27 Unknown AM FOUNDER / CEO AM FOUNDER / CEO Alejandro Ang MD LAB_1 Performing Organization Address [facility] Phon e Number [facility] [address] [place] [address] C Reactive Protein (05/02/2019 6:15 AM FOUNDER / CEO) athologist Signature C-Reactive 0.3 0.0 - 0.7 05/02/2019 [facility] Protein mg/dL 7:58 AM FOUNDER / CEO LABORATORY Specimen Anatomical Collection Method / Collection Time Recei peña Time (Source) Location / Volume Laterality Blood Venipuncture / 05/02/2019 6:15 05/02/2019 6:27 Unknown AM FOUNDER / CEO AM FOUNDER / CEO Alejandro Ang MD LAB_1 Performing Organization Address [facility] Phon e Number [facility] [address] [place] [address] Creatinine / GFR (05/02/2019 6:15 AM FOUNDER / CEO) athologist Signature Creatinine 0.57 0.55 - 05/02/2019 [facility] 1.02 mg/dL 6:55 AM FOUNDER / CEO LABORATORY GFR, Estimated >60 >60 05/02/2019 [facility] mL/min/1.7 6:55 AM FOUNDER / CEO LABORATORY 3m2 GFR, Est If >60 >60 05/02/2019 [facility] mL/min/1.7 6:55 AM FOUNDER / CEO LABORATORY [place] 3m2 Specimen Anatomical Collection Method / Collection Time Recei peña Time (Source) Location / Volume Laterality Blood Venipuncture / 05/02/2019 6:15 05/02/2019 6:27 Unknown AM FOUNDER / CEO AM FOUNDER / CEO Sergio Potter MD LAB_1 Performing Organization Address City/[facility]/ZIP Code Phon e Number [facility] [address] [place] [address] Potassium (05/02/2019 2:51 AM FOUNDER / CEO) athologist Signature Potassium 3.9 3.5 - 5.1 05/02/2019 [facility] mmol/L 3:10 AM FOUNDER / CEO LABORATORY Specimen Anatomical Collection Method / Collection Time Recei peña Time (Source) Location / Volume Laterality Blood Venipuncture / 05/02/2019 2:51 05/02/2019 2:56 Unknown AM FOUNDER / CEO AM FOUNDER / CEO Alejandro Ang MD LAB_1 Performing Organization Address [facility] Phon e Number [facility] [address] [place] [address] Bedside Glucose Monitor (05/01/2019 9:37 PM FOUNDER / CEO) athologist Signature Glucose, Whole 169 70 - 180 05/01/2019 [facility] Blood mg/dL 9:40 PM FOUNDER / CEO LABORATORY Specimen Anatomical Collection Method Collection Time Receive d Time (Source) Location / / Volume Laterality Blood 05/01/2019 9:37 PM 9 9:40 FOUNDER / CEO PM FOUNDER / CEO Alejandro Ang MD LAB_1 Performing Organization Address [facility] Phon e Number [facility] [address] [place] [address] (ABNORMAL) Calprotectin Fecal (05/01/2019 9:24 PM FOUNDER / CEO) [facility] gist Method Time Signature Fecal 691 (H) <=50 ug/g 05/04/2019 [facility] Calprotectin 11:55 PM FOUNDER / CEO LABORATORIES Comment: Fecal Calprotectin is an indicator [...] ??121 ug/g or greater: Abnormal Performed by [facility], [address] [place] [address] [email or web address], Romulo Pritchett MD, Lab. Director Specimen Anatomical Collection Method Collection Time Receive d Time (Source) Location / / Volume Laterality Stool 05/01/2019 9:24 PM 9 9:28 FOUNDER / CEO PM FOUNDER / CEO Orion Robles MD LAB_1 Performing Organization Address [facility]/ZIP Code Phon e Number [facility] [address] [place], [place] [address] (ABNORMAL) Bedside Glucose Monitor (05/01/2019 5:27 PM FOUNDER / CEO) athologist Signature Glucose, Whole 193 (H) 70 - 180 05/01/2019 [facility] Blood mg/dL 5:30 PM FOUNDER / CEO LABORATORY Specimen Anatomical Collection Method Collection Time Receive d Time (Source) Location / / Volume Laterality Blood 05/01/2019 5:27 PM 9 5:30 FOUNDER / CEO PM FOUNDER / CEO Alejandro Ang MD LAB_1 Performing Organization Address [facility] Phon e Number [facility] [address] [place] [address] Surgical Path - GI (05/01/2019 4:16 PM FOUNDER / CEO) Component Value Ref Test Analysis Performed At Patholo gist Range Method Time Signature Case Report Surgical Pathology ?Case: [id number] ? 05/02/2019 [facility] Authorizing Provider: ??Orion Robles MD ? Collected: ? 05/01/2019 04:16 PM ? 4:22 PM FOUNDER / CEO LABORA TORY Ordering Location: ? [facility] General ? Received: ?05/01/2019 04:41 PM ? Medicine ? Pathologist: ? Miguelangel Bautista MD ? Specimens: ?? A) - Colon, si gmoid ? B) - [place] n, rectum ? FINAL A. Colon, sigmoid, biopsy: 05/02/2019 [facility] Electronically DIAGNOSIS ?? No diagnostic abnormality 4:22 PM FOUNDER / CEO LABORATORY signed by Miguelangel Bautista MD on [...] in 0.8 x 0.4 x 0.2 c [facility] Description m. The specimen is filtered and entirely submitted in one cassette. 4:22 PM FOUNDER / CEO LABORATORY B. The specimen is received in formalin and labeled with the patient's name and Colon, rectum.?? The specimen consists of multiple dawn-white irregular soft tissue fragments, aggregating 1 x 1 x 0.2 cm . The specimen is filtered and entirely submitted in one bryan sette. SH Clinical Hx Ulcerative Colitis 05/02/[address] Information 4:22 PM FOUNDER / CEO LABORATORY Microscopic Microscopic 05/02/2019 [facility] Description examination is 4:22 PM FOUNDER / CEO LABORATORY performed. Embedded 05/02/2019 [facility] Images 4:22 PM FOUNDER / CEO LABORATORY Specimen Anatomical Collection Method Collection Time Receive d Time (Source) Location / / Volume Laterality Tissue COLON STRUCTURE / 05/01/2019 4:16 PM 12/2018 4:41 Unknown FOUNDER / CEO PM FOUNDER / CEO Tissue specimen COLON STRUCTURE / 05/01/2019 4:16 PM 1 07/01/2018 4:41 (specimen) Unknown FOUNDER / CEO PM FOUNDER / CEO Orion Robles MD LAB PATHOLOGY Performing Organization Address City/State/ZIP Code Phon e Number [facility] [address] [place] [address] Endoscopy, sigmoid (05/01/2019 3:27 PM FOUNDER / CEO) Specimen (Source) Anatomical Collection Method Collection Time Re ceived Time Location / / Volume Laterality 05/01/2019 3:27 PM FOUNDER / CEO Narrative GI (PROVATION) - 05/01/2019 3:27 PM FOUNDER / CEO Patient Name: Idania Duarte Procedure Date: 05/01/2019 [...] No immediate com plications. Procedure: ? After mervinin g informed consent, the ? scope was passed under direct vision. ? The - 109L-09 was introduced ? through t juliet [...] are ? unchanged. Biopsies were taken wi a cold forceps ? for histology. Verification [...] Code(s): ?? --- Professional - -- ? 15527, Si gmoidoscopy, flexible; with ? biopsy, s marcos or multiple ? G0500, Mo derate sedation services ? provided by the same physician or ? other [facility] health care ? professio nal performing a [...] time may ? [place] [address], as ? appropria te) Diagnosis Code(s): ?? --- Professional - -- ? K51.50, L eft sided colitis without ? complicat ions CPT copyright 2018 [employer]. All rights reserved. The codes documented in this report are preliminary and upon pen tender review may be revised to meet [...] scope was passed under direct vision. The [id number] was introduced through the anus and advanced [...] per GI Procedure Code(s): --- Professional --- 08507, Sigmoidoscopy, flexible; with biopsy, single or multiple G0500, Moderate sedation services provided by the same physician or other qualified health home care chaplain performing a gastrointestinal endoscopic service that sedation supports, requiring the presence of an independent trained observer to assist in the monitoring of the patient's level of consciousness and physiological status; initial 15 minutes of intra-service time; patient age 5 years or older (additional time may be reported with [address], as appropriate) Diagnosis Code(s): --- Professional --- K51.50, Left sided colitis without complications CPT copyright 2018 [employer]. All rights reserved. The codes documented in this report are preliminary and upon pen tender review may be revised to meet current compliance requirements. Orion Robles, 05/01/2019 4:34:47 PM Number of Addenda: 0 Note Initiated On: 05/01/2019 3:27 PM Endoscopy Report Orion Robles MD PN GI PROCEDURE ORDERABLES Performing Organization Address City/[facility]/ZIP Code Phon e Number GI (PROVATION) GI (PROVATION) [place], [place] Potassium (05/01/2019 2:55 PM FOUNDER / CEO) athologist Signature Potassium 3.8 3.5 - 5.1 05/01/2019 [facility] mmol/L 3:41 PM FOUNDER / CEO LABORATORY Specimen Anatomical Collection Method / Collection Time Recei peña Time (Source) Location / Volume Laterality Blood Venipuncture / 05/01/2019 2:55 05/01/2019 3:08 Unknown PM FOUNDER / CEO PM FOUNDER / CEO Alejandro Ang MD LAB_1 Performing Organization Address [facility] Phon e Number [facility] [address] [place] [address] Bedside Glucose Monitor (05/01/2019 12:41 PM FOUNDER / CEO) athologist Signature Glucose, Whole 122 70 - 180 05/01/2019 [facility] Blood mg/dL 12:50 PM FOUNDER / CEO LABORATORY Specimen Anatomical Collection Method Collection Time Receive d Time (Source) Location / / Volume Laterality Blood 05/01/2019 12:41 05/01/2019 PM FOUNDER / CEO 12:50 PM FOUNDER / CEO Alejandro Ang MD LAB_1 Performing Organization Address City/[facility] Phon e Number [facility] [address] [place] [address] C Reactive Protein (05/01/2019 9:35 AM FOUNDER / CEO) athologist Signature C-Reactive 0.4 0.0 - 0.7 05/01/2019 [facility] Protein mg/dL 10:06 AM FOUNDER / CEO LABORATORY Specimen Anatomical Collection Method / Collection Time Recei peña Time (Source) Location / Volume Laterality Blood Venipuncture / 05/01/2019 9:35 05/01/2019 9:39 Unknown AM FOUNDER / CEO AM FOUNDER / CEO Orion Robles MD LAB_1 Performing Organization Address City/State/ZIP Code Phon e Number [facility] [address] [place] [address] Bedside Glucose Monitor (05/01/2019 7:32 AM FOUNDER / CEO) P athologist Signature Glucose, Whole 118 70 - 180 05/01/2019 [facility] Blood mg/dL 7:35 AM FOUNDER / CEO LABORATORY Specimen Anatomical Collection Method Collection Time Receive d Time (Source) Location / / Volume Laterality Blood 05/01/2019 7:32 AM 9 7:35 FOUNDER / CEO AM FOUNDER / CEO Alejandro Ang MD LAB_1 Performing Organization Address City/[facility] Phon e Number [facility] [address] [place] [address] (ABNORMAL) Complete Blood Count-W/Diff (05/01/2019 6:32 AM FOUNDER / CEO) Patholo gist Method Time Signature WBC 14.6 (H) 3.5 - 10.5 05/01/2019 [facility] x10(9)/L 6:44 AM FOUNDER / CEO LABORATORY RBC 4.14 3.90 - 05/01/2019 [facility] 5.03 6:44 AM FOUNDER / CEO LABORATORY x10(12)/L Hemoglobin 12.6 12.0 - 05/01/2019 [facility] 15.5 g/dL 6:44 AM FOUNDER / CEO LABORATORY HCT 39.6 34.9 - 05/01/2019 [facility] 44.5 % 6:44 AM FOUNDER / CEO LABORATORY MCV 95.7 80.0 - 05/01/2019 [facility] 100.0 fL 6:44 AM FOUNDER / CEO LABORATORY MCH 30.4 27.6 - 05/01/2019 [facility] 33.3 pg 6:44 AM FOUNDER / CEO LABORATORY MCHC 31.8 31.5 - 05/01/2019 [facility] 35.2 g/dL 6:44 AM FOUNDER / CEO LABORATORY RDW 13.2 11.9 - 05/01/2019 [facility] 15.5 % 6:44 AM FOUNDER / CEO LABORATORY Platelets 348 150 - 450 05/01/2019 [facility] x10(9)/L 6:44 AM FOUNDER / CEO LABORATORY Automated NRBC 0 <=0 /100 05/01/2019 [facility] WBC 6:44 AM FOUNDER / CEO LABORATORY Neutrophil 12.1 (H) 1.7 - 7.0 05/01/2019 [facility] Absolute 10(9)/L 6:44 AM FOUNDER / CEO LABORATORY Lymphocyte 1.6 1.0 - 4.8 05/01/2019 [facility] Absolute 10(9)/L 6:44 AM FOUNDER / CEO LABORATORY Monocytes 0.6 0.2 - 0.9 05/01/2019 [facility] Absolute 10(9)/L 6:44 AM FOUNDER / CEO LABORATORY Eosinophil 0.0 0.0 - 0.5 05/01/2019 [facility] Absolute 10(9)/L 6:44 AM FOUNDER / CEO LABORATORY Basophil 0.0 0.0 - 0.3 05/01/2019 [facility] Absolute 10(9)/L 6:44 AM FOUNDER / CEO LABORATORY Immature Gran % 1.1 (H) 0.0 - 0.5 05/01/2019 [facility] % 6:44 AM FOUNDER / CEO LABORATORY Specimen Anatomical Collection Method / Collection Time Recei peña Time (Source) Location / Volume Laterality Blood Venipuncture / 05/01/2019 6:32 05/01/2019 6:40 Unknown AM FOUNDER / CEO AM FOUNDER / CEO Sergio Potter MD LAB_1 Performing Organization Address City/[facility] Phon e Number [facility] [address] [place] [address] INR/PROTIME (05/01/2019 6:32 AM FOUNDER / CEO) P athologist Signature Protime 12.9 11.8 - 14.6 05/01/2019 [facility] Seconds 6:53 AM FOUNDER / CEO LABORATORY INR 1.0 0.9 - 1.1 05/01/2019 [facility] 6:53 AM FOUNDER / CEO LABORATORY Specimen Anatomical Collection Method / Collection Time Recei peña Time (Source) Location / Volume Laterality Blood Lab OP Venipuncture 05/01/2019 6:32 05/01 6:40 / Unknown AM FOUNDER / CEO AM FOUNDER / CEO Narrative [facility] - 05/01/2019 6:53 A M FOUNDER / CEO Therapeutic range determined by protocol established by anticoagulation provider. Sergio Potter MD LAB_1 Performing Organization Address City/[facility] Phon e Number [facility] [address] [place] [address] (ABNORMAL) Basic Metabolic Panel (05/01/2019 6:32 AM FOUNDER / CEO) Analysis Performed At Patho logist Time Signature Sodium 136 136 - 145 05/01/2019 [facility] mmol/L 7:13 AM FOUNDER / CEO LABORATORY Potassium 3.9 3.5 - 5.1 05/01/2019 [facility] mmol/L 7:13 AM FOUNDER / CEO LABORATORY Chloride 104 98 - 109 05/01/2019 [facility] mmol/L 7:13 AM FOUNDER / CEO LABORATORY CO2 23 20 - 29 05/01/2019 [facility] mmol/L 7:13 AM FOUNDER / CEO LABORATORY Anion Gap 9 7 - 16 05/01/2019 [facility] mmol/L 7:13 AM FOUNDER / CEO LABORATORY Calcium 8.3 (L) 8.4 - 10.4 05/01/2019 [facility] mg/dL 7:13 AM FOUNDER / CEO LABORATORY BUN 10 7 - 26 05/01/2019 [facility] mg/dL 7:13 AM FOUNDER / CEO LABORATORY Creatinine 0.62 0.55 - 05/01/2019 [facility] 1.02 mg/dL 7:13 AM FOUNDER / CEO LABORATORY GFR, Estimated >60 >60 05/01/2019 [facility] mL/min/1.7 7:13 AM FOUNDER / CEO LABORATORY 3m2 GFR, Est If >60 >60 05/01/2019 [facility] mL/min/1.7 7:13 AM FOUNDER / CEO LABORATORY [place] 3m2 Glucose 153 (H) 70 - 100 05/01/2019 [facility] mg/dL 7:13 AM FOUNDER / CEO LABORATORY Comment: The given reference range is fo r the fasting state. Non-fasting reference range for glucose is 70 - 180 mg/dL. Specimen Anatomical Collection Method / Collection Time Recei peña Time (Source) Location / Volume Laterality Blood Venipuncture / 05/01/2019 6:32 05/01/2019 6:40 Unknown AM FOUNDER / CEO AM FOUNDER / CEO Sergio Potter MD LAB_1 Performing Organization Address City/State/ZIP Code Phon e Number [facility] [address] [place] [address] MAGNESIUM (05/01/2019 6:32 AM FOUNDER / CEO) P athologist Signature Magnesium 1.8 1.6 - 2.6 05/01/2019 [facility] mg/dL 7:13 AM FOUNDER / CEO LABORATORY Specimen Anatomical Collection Method / Collection Time Recei peña Time (Source) Location / Volume Laterality Blood Venipuncture / 05/01/2019 6:32 05/01/2019 6:40 Unknown AM FOUNDER / CEO AM FOUNDER / CEO Sergio Potter MD LAB_1 Performing Organization Address City/State/ZIP Code Phon e Number [facility] [address] [place] [address] (ABNORMAL) Complete Blood Count-W/Diff (04/30/2019 7:46 PM FOUNDER / CEO) [facility] Method Time Signature WBC 15.9 (H) 3.5 - 10.5 04/30/2019 [facility] x10(9)/L 7:54 PM FOUNDER / CEO LABORATORY RBC 4.53 3.90 - 04/30/2019 [facility] 5.03 7:54 PM FOUNDER / CEO LABORATORY x10(12)/L Hemoglobin 14.1 12.0 - 04/30/2019 [facility] 15.5 g/dL 7:54 PM FOUNDER / CEO LABORATORY HCT 42.3 34.9 - 04/30/2019 [facility] 44.5 % 7:54 PM FOUNDER / CEO LABORATORY MCV 93.4 80.0 - 04/30/2019 [facility] 100.0 fL 7:54 PM FOUNDER / CEO LABORATORY MCH 31.1 27.6 - 04/30/2019 [facility] 33.3 pg 7:54 PM FOUNDER / CEO LABORATORY MCHC 33.3 31.5 - 04/30/2019 [facility] 35.2 g/dL 7:54 PM FOUNDER / CEO LABORATORY RDW 13.2 11.9 - 04/30/2019 [facility] 15.5 % 7:54 PM FOUNDER / CEO LABORATORY Platelets 390 150 - 450 04/30/2019 [facility] x10(9)/L 7:54 PM FOUNDER / CEO LABORATORY Automated NRBC 0 <=0 /100 04/30/2019 [facility] WBC 7:54 PM FOUNDER / CEO LABORATORY Neutrophil 11.8 (H) 1.7 - 7.0 04/30/2019 [facility] Absolute 10(9)/L 7:54 PM FOUNDER / CEO LABORATORY Lymphocyte 2.9 1.0 - 4.8 04/30/2019 [facility] Absolute 10(9)/L 7:54 PM FOUNDER / CEO LABORATORY Monocytes 1.0 (H) 0.2 - 0.9 04/30/2019 [facility] Absolute 10(9)/L 7:54 PM FOUNDER / CEO LABORATORY Eosinophil 0.0 0.0 - 0.5 04/30/2019 [facility] Absolute 10(9)/L 7:54 PM FOUNDER / CEO LABORATORY Basophil 0.0 0.0 - 0.3 04/30/2019 [facility] Absolute 10(9)/L 7:54 PM FOUNDER / CEO LABORATORY Immature Gran % 0.9 (H) 0.0 - 0.5 04/30/2019 [facility] % 7:54 PM FOUNDER / CEO LABORATORY Specimen Anatomical Collection Method / Collection Time Recei peña Time (Source) Location / Volume Laterality Blood Venipuncture / 04/30/2019 7:46 04/30/2019 7:49 Unknown PM FOUNDER / CEO PM FOUNDER / CEO Sergio Potter MD LAB_1 Performing Organization Address [facility] Phon e Number [facility] [address] [place] [address] C Reactive Protein (04/30/2019 7:46 PM FOUNDER / CEO) P athologist Signature C-Reactive 0.4 0.0 - 0.7 04/30/2019 [facility] Protein mg/dL 8:15 PM FOUNDER / CEO LABORATORY Specimen Anatomical Collection Method / Collection Time Recei peña Time (Source) Location / Volume Laterality Blood Venipuncture / 04/30/2019 7:46 04/30/2019 7:50 Unknown PM FOUNDER / CEO PM FOUNDER / CEO Sergio Potter MD LAB_1 Performing Organization Address [facility] Phon e Number [facility] [address] [place] [address] Sedimentation Rate (04/30/2019 7:46 PM FOUNDER / CEO) Patholo gist Method Time Signature Sedimentation Rate 7 0 - 20 04/30/2019 [facility] mm/hr 8:39 PM FOUNDER / CEO LABORATORY Specimen Anatomical Collection Method / Collection Time Recei peña Time (Source) Location / Volume Laterality Blood Venipuncture / 04/30/2019 7:46 04/30/2019 7:50 Unknown PM FOUNDER / CEO PM FOUNDER / CEO Sergio Potter MD LAB_1 Performing Organization Address [facility] Phon e Number [facility] [address] [place] [address] INR/PROTIME (04/30/2019 7:46 PM FOUNDER / CEO) P athologist Signature Protime 12.0 11.8 - 14.6 04/30/2019 [facility] Seconds 8:03 PM FOUNDER / CEO LABORATORY INR 0.9 0.9 - 1.1 04/30/2019 [facility] 8:03 PM FOUNDER / CEO LABORATORY Specimen Anatomical Collection Method / Collection Time Recei peña Time (Source) Location / Volume Laterality Blood Venipuncture / 04/30/2019 7:46 04/30/2019 7:50 Unknown PM FOUNDER / CEO PM FOUNDER / CEO Narrative [facility] - 04/30/2019 8:03 P M FOUNDER / CEO Therapeutic range determined by protocol established by anticoagulation provider. Sergio Potter MD LAB_1 Performing Organization Address [facility] Phon e Number [facility] [address] [place] [address] (ABNORMAL) Liver Panel(Hepatic Function Panel) (04/30/2019 7:46 PM FOUNDER / CEO) [facility] Method Time Signature Alkaline 46 40 - 150 04/30/2019 [facility] Phosphatase U/L 8:14 PM FOUNDER / CEO LABORATORY Bilirubin, Total 0.3 0.2 - 1.2 04/30/2019 [facility] mg/dL 8:14 PM FOUNDER / CEO LABORATORY Bilirubin, 0.1 0.0 - 0.5 04/30/2019 [facility] Direct mg/dL 8:14 PM FOUNDER / CEO LABORATORY AST (SGOT) 14 10 - 40 04/30/2019 [facility] U/L 8:14 PM FOUNDER / CEO LABORATORY ALT (SGPT) 23 0 - 55 U/L 04/30/2019 [facility] 8:14 PM FOUNDER / CEO LABORATORY Protein, Total 6.9 6.4 - 8.3 04/30/2019 [facility] g/dL 8:14 PM FOUNDER / CEO LABORATORY Albumin 3.3 (L) 3.5 - 5.0 04/30/2019 [facility] g/dL 8:14 PM FOUNDER / CEO LABORATORY Specimen Anatomical Collection Method / Collection Time Recei peña Time (Source) Location / Volume Laterality Blood Venipuncture / 04/30/2019 7:46 04/30/2019 7:50 Unknown PM FOUNDER / CEO PM FOUNDER / CEO Sergio Potter MD LAB_1 Performing Organization Address [facility] Phon e Number [facility] [address] [place] [address] (ABNORMAL) Basic Metabolic Panel (04/30/2019 7:46 PM FOUNDER / CEO) Analysis Performed At Patho logist Time Signature Sodium 137 136 - 145 04/30/2019 [facility] mmol/L 8:14 PM FOUNDER / CEO LABORATORY Potassium 3.0 (L) 3.5 - 5.1 04/30/2019 [facility] mmol/L 8:14 PM FOUNDER / CEO LABORATORY Chloride 100 98 - 109 04/30/2019 [facility] mmol/L 8:14 PM FOUNDER / CEO LABORATORY CO2 27 20 - 29 04/30/2019 [facility] mmol/L 8:14 PM FOUNDER / CEO LABORATORY Anion Gap 10 7 - 16 04/30/2019 [facility] mmol/L 8:14 PM FOUNDER / CEO LABORATORY Calcium 9.0 8.4 - 10.4 04/30/2019 [facility] mg/dL 8:14 PM FOUNDER / CEO LABORATORY BUN 13 7 - 26 04/30/2019 [facility] mg/dL 8:14 PM FOUNDER / CEO LABORATORY Creatinine 0.73 0.55 - 04/30/2019 [facility] 1.02 mg/dL 8:14 PM FOUNDER / CEO LABORATORY GFR, Estimated >60 >60 04/30/2019 [facility] mL/min/1.7 8:14 PM FOUNDER / CEO LABORATORY 3m2 GFR, Est If >60 >60 04/30/2019 [facility] mL/min/1.7 8:14 PM FOUNDER / CEO LABORATORY Malaysian 3m2 Glucose 114 (H) 70 - 100 04/30/2019 [facility] mg/dL 8:14 PM FOUNDER / CEO LABORATORY Comment: The given reference range is fo r the fasting state. Non-fasting reference range for glucose is 70 - 180 mg/dL. Specimen Anatomical Collection Method / Collection Time Recei peña Time (Source) Location / Volume Laterality Blood Venipuncture / 04/30/2019 7:46 04/30/2019 7:50 Unknown PM FOUNDER / CEO PM FOUNDER / CEO Sergio Potter MD LAB_1 Performing Organization Address [facility] Phon e Number [facility] [address] [place] [address] MAGNESIUM (04/30/2019 7:46 PM FOUNDER / CEO) P athologist Signature Magnesium 2.0 1.6 - 2.6 04/30/2019 [facility] mg/dL 8:14 PM FOUNDER / CEO LABORATORY Specimen Anatomical Collection Method / Collection Time Recei peña Time (Source) Location / Volume Laterality Blood Venipuncture / 04/30/2019 7:46 04/30/2019 7:50 Unknown PM FOUNDER / CEO PM FOUNDER / CEO Sergio Potter MD LAB_1 Performing Organization Address [facility] Phon e Number [facility] [address] [place] [address] documented in this encounter Visit Diagnoses Diagnosis 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 difficile colitis Intestinal infection due to clostridium difficile Hematochezia Blood in stool Plan of Care - Tammi Berry APRN, CNP - 04/30/2019 3:29 PM CST Direct Admit/Transfer Report Nonbillable service Name//MRN: Idania Duarte 1975 [id number] Referring Facility: [facility] Referring Provider: Faye Hinojosa CNP Symptoms/Diagnosis: Known Ulcerative Colitis failing outpatient [...] Tammi Berry APRN, CNP 04/30/2019, 3:29 PM DER / CEO documented in this encounter Administered Medications Inactive Administered Medications - up to 3 most recent administrations Medication Order MAR Action Action Date Dose Rate Site control pill Self Administered 05/05/2019 8:00 AM 1 Tablet (patient's own medication) FOUNDER / CEO 1 Tablet 1 Tablet, Oral, DAILY, First dose on Tamela 05/01/19 at 0800, Until Discontinued, norethindrone-eth estradiol (DASETTA ) 1-35 MG-MCG tablet, OP SIG:Take 1 Tablet by mouth daily. Takes continuously Preparation: Single glove; respiratory protection optional, Administration: If no touch, no PPE; if handling, single glove Self Administered 05/04/2019 8:00 AM FOUNDER / CEO 1 Tablet Self Administered 05/03/2019 8:00 AM FOUNDER / CEO 1 Tablet cholestyramine (QUESTRAN) packet 4 g Given 05/05/2019 8:02 AM FOUNDER / CEO 4 g 4 g, Oral, QDAY WITH MEAL, First dose on Tamela 05/01/19 at 0800, Until Discontinued Given 05/04/2019 8:15 AM FOUNDER / CEO 4 g Given 05/03/2019 7:54 AM FOUNDER / CEO 4 g enoxaparin (LOVENOX) injection Given 05/05/2019 9:09 AM FOUNDER / CEO 40 m g Abdominal Tissue 40 mg 40 mg, Subcutaneous, Q24H, First dose on Tamela 05/01/19 at 0900, Until Discontinued Given 05/04/2019 8:16 AM FOUNDER / CEO 40 mg Abdom inal Tissue Given 05/03/2019 9:57 AM FOUNDER / CEO 40 mg Abdom inal Tissue fentaNYL (SUBLIMAZE) injection 25-100 mc g Given 05/01/2019 4:12 PM FOUNDER / CEO 75 mcg 25-100 mcg, Intravenous, PRN, Other, Moderate Sedation, Starting on Tamela 05/01/19 at 1611, Until Tamela 05/01/19 at 1628, Administer in 25-100 mcg increments as directed by endoscopy procedure MD up to a total of 300 mcg. (Give only during endoscopy procedure visit) inFLIXimab (REMICADE) 400 mg in sodium Started 05/03/2019 2:48 PM FOUNDER / CEO 400 mg chloride 0.9 % 250 mL [...] ABLE to take oral magnesium., Starting on Wed at 1936, Until 05/05/19 at 1559, Give [...] magnesium oxide-amino acids Given 05/02/2019 9:55 PM FOUNDER / CEO 2 Table ts (YH-FEYL-VTVIDTU) tablet 2 Tablet 2 Tablet, Oral, Q4H [...] 48 hours later). Given 05/02/2019 6:12 PM FOUNDER / CEO 2 Tablets Given 05/02/2019 1:34 PM FOUNDER / CEO 2 Tablets magnesium sulfate 2 g in [...] tablet 3 mg Given 05/04/2019 9:42 PM FOUNDER / CEO 3 mg 3 mg, Oral, HS PRN, Other, Mild insomnia, Starting on Sun04/30/19 at 1936, Until 05/05/19 at 1559 Given 05/03/2019 9:17 PM FOUNDER / CEO 3 mg Given 05/02/2019 10:01 PM FOUNDER / CEO 3 mg mesalamine (CANASA) rectal suppository Given 05/04/2019 9:42 PM FOUNDER / CEO 1,000 mg 1,000 mg 1,000 mg, Rectal, HS, First dose on Sun05/01/19 at 2200, Until Discontinued Given 05/03/2019 10:00 PM FOUNDER / CEO 1,000 mg Given 05/02/2019 10:00 PM FOUNDER / CEO 1,000 mg mesalamine (LIALDA) enteric coated tablet 4.8 Given 8:00 AM FOUNDER / CEO 4.8 g g 4.8 g, Oral, QDAY WITH MEAL, First dose on Sun05/01/19 at 0800, Until Discontinued, Tablet should be swallowed whole Given 05/01/2019 8:47 AM FOUNDER / CEO 4.8 g methylPREDNISolone sodium succinate Given 05/02/2019 7:45 PM FOUNDER / CEO 20 mg (SOLU-Medrol) injection 20 mg 20 mg, Intravenous, Q8H, First dose on Sun04/30/19 at 2000, Last dose on Sun05/02/19 at 2000, For 7 doses Given 05/02/2019 1:34 PM FOUNDER / CEO 20 mg Given 05/02/2019 5:09 AM FOUNDER / CEO 20 mg midazolam (VERSED) injection 0.5-2 mg Given 05/01/2019 4:12 PM FOUNDER / CEO 3 mg 0.5-2 mg, Intravenous, PRN, Sedation, Starting on Tamela 05/01/19 at 1611, Until Tamela 05/01/19 at 1628, Administer in 0.5-2 mg increments as directed by endoscopy procedure MD up to a total of 8 mg. (Give only during endoscopy procedure visit) potassium bicarbonate-citric acid (EFFER-K) Given 12/2018 11:08 AM FOUNDER / CEO 20 mEq effervescent tablet 20 mEq 20 [...] bicarbonate-citric acid (EFFER-K) Given 05/01/2019 7:31 PM FOUNDER / CEO 20 mEq effervescent tablet 20 mEq 20 [...] bicarbonate-citric acid (EFFER-K) Given 05/02/2019 3:45 AM FOUNDER / CEO 20 mEq effervescent tablet 20 mEq 20 [...] bicarbonate-citric acid (EFFER-K) Given 05/02/2019 5:01 PM FOUNDER / CEO 20 mEq effervescent tablet 20 mEq 20 [...] bicarbonate-citric acid (EFFER-K) Given 05/01/2019 4:45 AM FOUNDER / CEO 40 mEq effervescent tablet 40 mEq 40 [...] to completely dissolve. Given 05/01/2019 12:47 AM FOUNDER / CEO 40 mEq potassium bicarbonate-citric acid (EFFER-K) Given 05/04/2019 8:16 AM FOUNDER / CEO 40 mEq effervescent tablet 40 mEq 40 mEq, Oral, ONCE, On Sun05/04/19 at 0800, For 1 dose, Recheck serum potassium 4 hours after completing replacement and repeat protocol if indicated. Dissolve tablets completely in 3 to 4 ounces of cold/ice water or juice. May further dilute if GI adverse effects occur. May take 3-4 minutes to completely dissolve. potassium bicarbonate-citric acid (EFFER-K) Given 05/05/2019 8:02 AM FOUNDER / CEO 40 mEq effervescent tablet 40 mEq 40 mEq, Oral, ONCE, On Sun05/05/19 at 0745, For 1 dose, Recheck serum potassium 4 hours after completing replacement and repeat protocol if indicated. Dissolve tablets completely in 3 to 4 ounces of cold/ice water or juice. May further dilute if GI adverse effects occur. May take 3-4 minutes to completely dissolve. predniSONE (DELTASONE) tablet 40 mg Given 05/05/2019 8:02 AM FOUNDER / CEO 40 mg 40 mg, Oral, DAILY, First dose on 05/03/19 at 0800, Until Discontinued Given 05/04/2019 8:16 AM FOUNDER / CEO 40 mg Given 05/03/2019 7:54 AM FOUNDER / CEO 40 mg sodium chloride 0.9% 0.9 % injection - ADS Given 04/30/2019 9:27 PM FOUNDER / CEO 10 mL Override Pull Starting on Sun04/30/19 at 2013, Until Sun04/30/19 at 2127, For 1 dose, YvonnevladimirDenis brodyzin : cabinet override sodium chloride 0.9% infusion New Bag Started 05/01/2019 7:30 AM 100 mL/hr Intravenous, at 100 mL/hr, FOUNDER / CEO CONTINUOUS, Starting on Sun04/30/19 at 2000, For 14 hours Started 04/30/2019 9:32 PM FOUNDER / CEO 100 mL/hr sodium chloride 0.9% injection 10-60 mL Given 05/02/2019 7:45 PM FOUNDER / CEO 10 mL 10-60 mL, Intravenous, BID, First [...] Device Users Guide. Given 05/02/2019 8:01 AM FOUNDER / CEO 10 mL Given 05/01/2019 7:32 PM FOUNDER / CEO 10 mL sodium chloride 0.9% injection 10-60 mL Given 05/03/2019 2:38 PM FOUNDER / CEO 10 mL 10-60 mL, Intravenous, PRN, Line [...] Device Users Guide. Given 05/02/2019 5:09 AM FOUNDER / CEO 10 mL Given 05/01/2019 2:01 PM FOUNDER / CEO 10 mL triamterene-hydrochlorothiazide (MAXZIDE-25) Given 04/2019 8:02 AM FOUNDER / CEO 1 Tablet 37.5-25 MG per tablet 1 Tablet 1 Tablet, Oral, DAILY, First dose on Sun05/02/19 at 1145, Until Discontinued, OP SIG:TAKE 1 TABLET BY MOUTH DAILY. Given 05/04/2019 8:16 AM FOUNDER / CEO 1 Tablet Given 05/03/2019 7:54 AM FOUNDER / CEO 1 Tablet documented in this encounter Active and Recently Administered Medications Times are shown in FOUNDER / CEO. Scheduled Medication Order 05/03/2019 05/04/2019 05/05/2019 control [...] 40 mg 0957 (Given - Pro vider: Acotsa Farrell RN) 0816 (Given - Provider: Acosta [...] Acosta Farrell RN)1600 (Noted - Provider: Acosta Frarell RN) 0000 (Noted - Provider: Tavares Thomas [...] Other, Mild Pain (pain score 1-4), Starting Sun04/30/19 at 1936, Give for mild pain or [...] Oral, Q4H PRN, Cough, Starting Sun04/30/19 at 1936 HYDROmorphone (DILAUDID) tablet 2-4 mg 2-4 mg, Oral, Q4H PRN, Other, Moderate P ain (pain score 5-7) or Severe Pain (pain score 8-10), Starting Sun04/30/19 at 1935, For moderate or severe pain. Do NOT [...] opioid administration if needed. magnesium oxide-amino acids (UY-BBNG-OKENFBJ) tablet 2 Tablet(Li nked Group 1) 2 [...] and replace as needed. magnesium oxide-amino acids (AO-EGGH-XKUROVK) tablet 2 Tablet 2 Tablet, Oral, CONDITIONAL, [...] take oral magnesium., Starting Sun04/30/19 at 1935, Administer over 4 hours. Give DAVE RY [...] to take oral magnesium., Starting 04/30/19 at 1936, Administer over 4 hours. Give [...] 04/30/19 at 193, Administer over 4 hours. GIVE ONCE if c onditions are met. RN to NOTIFY Pharmacy to place scheduled medication order IF CONDITIONS are met. If replacement is given pharmacy to recheck serum magnesium the following morning and replace as needed. melatonin tablet 3 mg 2116 (Given - Provider: Tavares guadalupe RN) 2141 (Given - Provider: Tavares Thomas, MARIO) 3 mg, Oral, HS PRN, Other, Mild insomnia, Starting 04/30/19 a t 1935 ondansetron (ZOFRAN) injection 4 mg 4 mg, Intravenous, Q4H PRN, Nausea, Vomiting, Starting Wed at 193 polyvinyl alcohol (ARTIFICIAL TEARS) 1.4 % ophthalmic solution 1 Drop 1 Drop, Both Eyes, Q1H PRN, Dry Eyes, Itchy Eyes, Starting W ed 04/30/19 at 193 senna (SENOKOT) tablet 1 Tablet 1 Tablet, Oral, DAILY PRN, Constipation, Mild Constipation, Starting 04/30/19 at 1936, Mild constipation sodium chloride (OCEAN) 0.65 % nasal solution 1 [place] 1 [place], Both Nostrils, Q2H PRN, Dry Nose, Starting 04/30/19 at 193 sodium chloride 0.9% injection 10-60 mL 1438 (Given - Provider: Renetta Flannery RN) 10-60 mL, Intravenous, PRN, Line Patency , Line Care, Starting 11/6/19 at 2120, For an INT flush, flush [...] rmacy to recheck serum magnesium the fol low morning and replace as needed.
And magnesium oxide-amino acids (VJ-ADKP-VTDTVLV) tablet 2 TabletJump to med 2 Tablet, [...] needed.
documented in this encounter Care Teams Shank Carrier Relationship Specialty Start Date End Date Sheeba Castillo, CORKING MACHINE OPERATOR, LEAD MEDICAL TECHNOLOGIST PCP - General Nurse Practitioner 07/20/16 [address] [place] [address] documented as of this encounter
--- OUTSIDE RECORDS SUMMARY | 2022-05-09 19:23 | XMS_ITS | Encounter Summary ---
:1975 Author Organization [employer] Address [address] [address] Care Team Providers Name Role Phone Sheeba Castillo APRN, CNP Primary Care Provider Reason for Referral (Routine) - Closed Specialty Diagnoses / Procedures Referred By Contact Refer red To Contact Diagnoses Chronic ulcerative proctitis with rectal bleeding (HRC) Faye Felton APRN, Procedures Flexible Sigmoidoscopy MANAGER LONG TERM CARE [address] [place] [address] Referral ID Status Reason Start Date Expiration Date Visits Requ ested Visits Authorized [id number] Closed 01/29/2019 04/29/2020 1 1 Reason for Visit (Routine) - Closed Specialty Diagnoses / Procedures Referred By Contact Refer red To Contact Diagnoses Chronic ulcerative proctitis with rectal bleeding (HRC) Faye Felton APRN, Procedures Flexible Sigmoidoscopy MANAGER LONG TERM CARE [address] [place] [address] Referral ID Status Reason Start Date Expiration Date Visits Requ ested Visits Authorized [id number] Closed 01/29/2019 04/29/2020 1 1 Encounter Details Date Type Department Care Team Description 02/05/2019 Hospital Encounter [facility] Charles Marinelli C hronic ulcerative [address] proctitis with [address] ([facility]) 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 The [id number] was introduced through the anus and advanced [...] the patient. Procedure Code(s): --- Professional --- 90839, Sigmoidoscopy, flexible; with biopsy, single or multiple 07237, Moderate sedation; each additional 15 minutes intraservice time G0500, Moderate sedation services provided by the same physician or other qualified health attending ambulatory care performing a gastrointestinal endoscopic service that sedation supports, requiring the presence of an independent trained observer to assist in the monitoring of the patient's level of consciousness and physiological status; initial 15 minutes of intra-service time; patient age 5 years or older (additional time may be reported with 96778, as appropriate) Diagnosis Code(s): --- Professional --- K52.9, Noninfective gastroenteritis and colitis, unspecified K92.1, Melena (includes Hematochezia) R19.7, Diarrhea, unspecified K51.30, Ulcerative (chronic) rectosigmoiditis without complications CPT copyright 2018 [employer]. All rights reserved. The codes documented in this report are preliminary and upon plasterer stucco review may be revised to meet current compliance requirements. Charles Marinelli MD 02/05/2019 1:39:43 PM Number of Addenda: 0 Note Initiated On: 02/05/2019 12:44 PM Endoscopy Report documented in this encounter Plan of Treatment Upcoming Encounters Date Type Specialty Care Team Description 05/12/2022 Hospital Encounter Chemo Therapy/Infusion Services 09/15/2022 Telemedicine Gastroenterology Eusebio Haines MD [address] [place] [id number] documented as of this encounter Procedures Procedure [...] Component Value Ref Test Analysis Performed At [facility] gist Range Method Time Signature Case Report Surgical Pathology ?Case: [id number] ? 02/06/2019 [facility] Authorizing Provider: ??Charles Qureshi MD ?Collected: ? 02/05/2019 01:29 PM ? 3:36 PM LABORA TORY Ordering Location: ? [facility] [address] ?Received: ?02/05/2019 02:10 PM ? CDT ? Endoscopy ? Pathologist: ? Ivan Guzman, ? Specimens: ?? A) - Colon, ;t ransverse, descending and sigmoid colon ? B) - Bude n ? C) - Bude n, ;rectal and rectosigmoid ? FINAL A. Colon, ;transverse, descending and sigmoid colon, biops y: 02/06/2019 [facility] Electronically DIAGNOSIS ?? Focal minimal active colitis [...] multiple dawn-white irregular soft tissue fr 02/06/2019 [facility] Description agments, ranging from 0.1 cm up [...] 3:36 PM LABORATORY CDT Microscopic Microscopic 02/06/2019 [facility] Description examination is 3:36 PM LABORATORY performed. CDT Special Stains Block Stain Result 02/06/[address] [address] C1 CMV Negative 3:36 PM LABORATORY CDT The stain controls have been reviewed and stain appropriatel y. ASR Disclaimer One or more of these tests w ere developed and the performance characteristics were determined by [facility]. They have not been cleared or [...] complexity clinical laboratory testing. CDT Embedded 02/06/2019 [facility] Images 3:36 PM LABORATORY CDT Specimen Anatomical [...] Organization Address City/State/ZIP Code Phon e Number [facility] [address] [place] [address] Flexible Sigmoidoscopy (02/05/2019 12:44 PM CDT) Specimen [...] Providers: ? Charles villafana MD, Marce ? Sigurdson , RN Patient Profile: ? 43 year old taylor [...] 190L-16 was introduced ? through t he anus and advanced to the ? left jaquez [...] Code(s): ?? --- Professional - -- ? 48083, Si gmoidoscopy, flexible; with ? biopsy, s marcos or multiple ? 77509, Mo derate sedation; each ? additiona l 15 minutes intraservice ? time ? G0500, Mo derate sedation services ? provided by the same physician or ? other [facility] health care ? professio nal performing [...] time may ? [place] [address], as ? appropria te) Diagnosis Code(s): ?? --- Professional - -- ? K52.9, No ninfective gastroenteritis ? and colit is, unspecified ? K92.1, Me rodney (includes Hematochezia) ? R19.7, Di arrhea, unspecified ? K51.30, U lcerative (chronic) ? rectosigm oiditis without complications CPT copyright 2018 [employer]. All rights reserved. The codes documented in this report are preliminary and upon plasterer stucco review may be revised to meet current [...] scope was passed under direct vision. The [id number] was introduced through the anus and advanced [...] anus). Biopsied. Recommendation: - Discharge patient to [facility]. - Continue present medications. - Await pathology results. - Return to GI clinic as previously scheduled. - The findings and recommendations were discussed with the patient. Procedure Code(s): --- Professional --- 40300, Sigmoidoscopy, flexible; with biopsy, single or multiple 55932, Moderate sedation; each additional 15 minutes intraservice time G0500, Moderate sedation services provided by the same physician or other qualified health attending ambulatory care performing a gastrointestinal endoscopic service that sedation supports, requiring the presence of an independent trained observer to assist in the monitoring of the patient's level of consciousness and physiological status; initial 15 minutes of intra-service time; patient age 5 years or older (additional time may be reported with 14410, as appropriate) Diagnosis Code(s): --- Professional --- K52.9, Noninfective gastroenteritis and colitis, unspecified K92.1, Melena (includes Hematochezia) R19.7, Diarrhea, unspecified K51.30, Ulcerative (chronic) rectosigmoiditis without complications CPT copyright 2018 [employer]. All rights reserved. The codes documented in this report are preliminary and upon plasterer stucco review may be revised to meet current compliance requirements. Charles Marinelli MD 02/05/2019 1:39:43 PM Number of Addenda: 0 Note Initiated On: 02/05/2019 12:44 PM Endoscopy Report Faye Felton APRN, [facility] PN GI PROCEDURE ORDERABLES Performing Organization Address City/State/ZIP Code Phon e Number GI (PROVATION) [facility] ([facility]) [place], [place] documented in this encounter Visit Diagnoses [...] Care, Starting on Sun02/05/19 at 1054, Until Sun02/06/19 at 0205 documented in this encounter Care Teams Submarine Worker Relationship Specialty Start Date End Date Sheeba Castillo, RUDY, MANAGER LONG TERM CARE PCP - General Nurse Practitioner 07/20/16 [address] [place] [address] documented as of this encounter
--- OUTSIDE RECORDS SUMMARY | 2022-05-09 19:23 | XMS_ITS | Encounter Summary ---
:1975 Author Organization [employer] Address [address] [place] [address] Care Team Providers Name Role Phone Sheeba Castillo APRN, CNP Primary Care Provider [phone] Reason for Visit Reason Comments IMMUNIZATION QUESTIONS My Chart Message Encounter Details Date Type Department Care Team Description 02/16/[address] 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 I work at the [employer] until 3:30 so would like an apt after that time for a Shingrix vaccine. I called around and was told that since I am under 50, other outside pharmacies can not give me the vaccine. I contacted the [facility] and was told due to my age, that I had to get the vaccine from [facility] or [facility]. I am aware that it is hard [...] with 1111 or unknown) Please route to: [place] Nurse Driscoll documented in this encounter Plan of Treatment Upcoming Encounters Date Type Specialty Care Team Description 05/12/2022 Hospital Encounter Chemo Therapy/Infusion Services 09/15/2022 Telemedicine Gastroenterology Eusebio Haines MD [address] [place], [place] [phone] documented as of this encounter Visit Diagnoses Not on filedocumented in this encounter Care Teams Keying Machine Operator Relationship Specialty Start Date End Date Sheeba Castillo, MILLWRIGHT SUPERVISOR, RECOVERY AGENT PCP - General Nurse Practitioner 07/20/16 [address] [place] [phone] documented as of this encounter
--- OUTSIDE RECORDS SUMMARY | 2022-05-09 19:23 | XMS_ITS | Encounter Summary ---
:1975 Author Organization [employer] Address [address] [place] [address] Care Team Providers Name Role Phone Sheeba Castillo APRN, CNP Primary Care Provider [phone] Reason for Referral Consult/Transfer Care (Routine) - Closed Specialty Diagnoses / Procedures Referred By Contact Refer red To Contact Diagnoses Malignant melanoma of skin of trunk, except scrotum (HRC) Idania Andrade MD [address] [place] [address] [place] [address] Referral ID Status Reason Start Date Expiration Date Visits Requ ested Visits Authorized [id number] Closed 12/19/2018 03/19/2020 1 1 Scheduling Instructions Your provider has recommended an appoint ment with Cindy Jewell. You may call [phone] to schedule your appoi ntment. If you do not schedule an appointment within the next 1 to 3 business days, we will call you to help arrange your appointment. We suggest you call your [facility] insurance company about your coverage and benefits for this appointment. Reason for Visit Reason Comments Annual Exam Encounter Details Date Type Department Care Team Description 12/19/2018 Office Visit Idania Dos Santos, Darin jimenez exam (Primary Dx); Medicine Malignant melanoma of skin of trunk, exc ept scrotum (HRC); [address] [place] [address] MAG[place] LE[place] [phone] Social History Tobacco Use Types Packs/Day Years Used Date Smoking Tobacco: Former Cigarettes 0.3 15 Quit : 04/25/2015 Smokeless Tobacco: Never Alcohol Use Standard Drinks/Week Comments Yes 3 (1 standard drink = 0.6 oz pure alcoho l) rarely Sex Assigned at Date Recorded Female 05/09/2021 7:19 PM COAT JOINER documented as of this encounter Last Filed [...] Melanoma Trunk 11/01/2010 ??? 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 [...] file Gets together: Not on file Attends voodoo service: Not on file Active member of [...] Yes Social History Narrative . Works in [employer] at [employer] [place]. 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 Preventive Health Assessment: Health [...] Services 09/15/2022 Telemedicine Gastroenterology Eusebio Haines MD [address] [place] [address] Scheduled Referrals Name Type Priority Associated Diagnoses Order S chedule Dermatology Referral Routine Malignant melanoma of Ordere d: 12/19/2018 Consult-Adult/Peds skin of trunk, except scrotum (HRC) documented as of this encounter Results TSH with Free T4 (if TSH Abnormal) (12/19/2018 4:30 PM CDT) athologist Signature TSH, Reflex 1.63 0.30 - 4.50 12/19/2018 [facility] uIU/mL 10:07 PM CDT LABORATORY Specimen Anatomical Collection Method / Collection Time Recei peña Time (Source) Location / Volume Laterality Blood Venipuncture / 12/19/2018 4:30 12/19/2018 4:30 Unknown PM CDT PM CDT Narrative [facility] - 12/19/2018 10:07 PM CDT Lab will automatically reflex to Free T4 when TSH results are <0.30 uIU/mL or >4.50 mIU/mL. Idania Andrade MD LAB_1 Performing Organization Address City/[facility] Phon e Number [facility] [address] [place] [address] Hgb A1C (12/19/2018 4:30 PM CDT) athologist Signature Hemoglobin A1C 5.5 <=5.6 % 12/20/2018 [facility] 9:23 AM CDT LABORATORY Specimen Anatomical Collection Method / Collection Time Recei peña Time (Source) Location / Volume Laterality Blood Venipuncture / 12/19/2018 4:30 12/19/2018 4:30 Unknown PM CDT PM CDT Idania Andrade MD LAB_1 Performing Organization Address City/[facility] Phon e Number [facility] [address] [place] [address] documented in this encounter Visit Diagnoses Diagnosis Well adult exam - Primary Routine general medical examination at a health care facility Malignant melanoma of skin of trunk, exc ept scrotum (HRC) Malignant melanoma of skin of trunk, exc ept scrotum Overweight (HRC) documented in this encounter Care Teams Kiln Repairer Relationship Specialty Start Date End Date Sheeba Castillo, COMPLIANCE INVESTIGATOR, EP TECH PCP - General Nurse Practitioner 07/20/16 [address] [place] [address] documented as of this encounter
--- OUTSIDE RECORDS SUMMARY | 2022-05-09 19:23 | XMS_ITS | Encounter Summary ---
:1975 Author Organization [employer] Address [address], [place] [address] Care Team Providers Name Role Phone Sheeba Castillo APRN, CNP Primary Care Provider [phone] Reason for Visit Reason Comments Dental Hygiene cc none Encounter Details Date Type Department Care Team Description 12/24/2018 Office Visit Francis Bayron Montanez Dental Hygiene (cc Dentistry [address] [facility] none) [address] [place] [id number] Social History Tobacco Use Types Packs/Day Years Used Date Smoking Tobacco: Former Cigarettes 0.3 15 Quit : 04/25/2015 Smokeless Tobacco: Never Alcohol Use Standard Drinks/Week Comments Yes 3 (1 standard drink = 0.6 oz pure alcoho l) rarely Sex Assigned at Date Recorded Female 05/09/2021 7:19 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 PERIODIC ORAL EVALUATION ??? [id number] --End of Note-- Adelia Montalvo DDS - [...] PROPHYLAXIS-ADULT RECALL ??? PERIODIC ORAL EVALUATION ??? [id number] Adelia Montalvo DDS 12/24/2018, 6:02 PM --End of Note-- documented in this encounter Plan of Treatment Upcoming Encounters Date Type Specialty Care Team Description 05/12/2022 Hospital Encounter Chemo Therapy/Infusion Services 09/15/2022 Telemedicine Gastroenterology Eusebio Haines MD [address] [place] [address] documented as of this encounter Procedures Procedure Name Priority Date/Time Associated Diagnosis Comme nts [id number] Routine 12/24/2018 5:10 PM Routine health CDT maintenance PERIODIC ORAL Routine 12/24/2018 5:10 PM Routine health EVALUATION CDT maintenance PROPHYLAXIS-ADULT Routine 12/24/2018 5:10 PM Routine health RECALL CDT maintenance documented in this encounter Visit Diagnoses Diagnosis Routine health maintenance - Primary Routine general medical examination at a health care facility documented in this encounter Care Teams Dust Brush Assembler Relationship Specialty Start Date End Date Sheeba Castillo, ELECTROPHYSIOLOGY TECHNICIAN, EDI DEVELOPER PCP - General Nurse Practitioner 07/20/16 [address] [place] [address] documented as of this encounter
--- OUTSIDE RECORDS SUMMARY | 2022-05-09 19:23 | XMS_ITS | Encounter Summary ---
:1975 Author Organization [facility] Address [address] [place] [address] Care Team Providers Name Role Phone Sheeba Castillo APRN, SIERRA Primary Care Provider [phone] Reason for Visit Reason Comments Refill Phentermine HCl 37.5 MG caps ule [Pharmacy Med Name: PHENTERMINE HCL 37.5MG CAPS] Encounter Details Date Type Department Care Team Description 10/16/2018 Refill [facility] Iggy Hernandez MD Refill (Phentermine HCl [address] Reyna 37.5 MG capsule [address] [place], [place] [Pharmacy Med Name: [place] [address] PHENTERMINE HCL 37.5MG [phone] (Wo rk) CAPS]) Social History Tobacco Use Types Packs/Day Years Used Date Smoking Tobacco: Former Cigarettes 0.3 15 Quit : 04/25/2015 Smokeless Tobacco: Never Alcohol Use Standard Drinks/Week Comments Yes 3 (1 standard drink = 0.6 oz pure alcoho l) rarely Sex Assigned at Date Recorded Female 05/09/2021 7:19 PM MANUFACTURING SUPPORT ENGINEER documented as of this encounter Nursing Notes [...] HERNANDEZ) Next scheduled visit: None Powered by [facility], Reference: [id number], 10/16/2018 11:33:31 AM CDT, Pool: DEANDRA FP REFILL ([id number]) Interface, Out [employer] Query - 10/16/2018 11:33 AM CDT No Careplan note found by [facility]. documented in this encounter Plan of Treatment Upcoming Encounters Date Type Specialty Care Team Description 05/12/2022 Hospital Encounter Chemo Therapy/Infusion Services 09/15/2022 Telemedicine Gastroenterology Eusebio Haines MD [address] [place] [address] documented as of this encounter Visit Diagnoses Not on filedocumented in this encounter Care Teams Machine Hand Relationship Specialty Start Date End Date Sheeba Castillo, NEWSPAPER PRESS OPERATOR APPRENTICE, IC DESIGN ENGINEER PCP - General Nurse Practitioner 07/20/16 [address] [place] [address] documented as of this encounter
--- OUTSIDE RECORDS SUMMARY | 2022-05-09 19:23 | XMS_ITS | Encounter Summary ---
:1975 Author Organization [employer] Address [address] [place] [address] Care Team Providers Name Role Phone Sheeba Casitllo APRN, SIERRA Primary Care Provider [phone] Encounter Details Date Type Department Care Team Description 12/19/2018 Lab Visit [facility] Well adult exam [address] [place] [address] Social History Tobacco Use Types Packs/Day Years Used Date Smoking Tobacco: Former Cigarettes 0.3 15 Quit : 04/25/2015 Smokeless Tobacco: Never Alcohol Use Standard Drinks/Week Comments Yes 3 (1 standard drink = 0.6 oz pure alcoho l) rarely Sex Assigned at Date Recorded Female 05/09/2021 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 documented as of this encounter Plan of Treatment Upcoming Encounters Date Type Specialty Care Team Description 05/12/2022 Hospital Encounter Chemo Therapy/Infusion Services 09/15/2022 Telemedicine Gastroenterology Eusebio Haines MD [address] [place], [place] [address] documented as of this encounter Procedures Procedure [...] Signature WBC 8.3 3.5 - 10.5 12/19/2018 [place] x10(9)/L 4:34 PM CDT LABORATORY RBC 4.51 3.90 - 12/19/2018 [place] 5.03 4:34 PM CDT LABORATORY x10(12)/L Hemoglobin 13.7 12.0 - 12/19/2018 [place] 15.5 g/dL 4:34 PM CDT LABORATORY HCT 41.2 34.9 - 12/19/2018 [place] 44.5 % 4:34 PM CDT LABORATORY MCV 91.4 80.0 - 12/19/2018 [place] 100.0 fL 4:34 PM CDT LABORATORY MCH 30.4 27.6 - 12/19/2018 [place] 33.3 pg 4:34 PM CDT LABORATORY MCHC 33.3 31.5 - 12/19/2018 [place] 35.2 g/dL 4:34 PM CDT LABORATORY RDW 12.5 11.9 - 12/19/2018 [place] 15.5 % 4:34 PM CDT LABORATORY Platelets 332 150 - 450 12/19/2018 [place] x10(9)/L 4:34 PM CDT LABORATORY Automated NRBC 0 <=0 /100 12/19/2018 [place] WBC 4:34 PM CDT LABORATORY Neutrophil 4.2 1.7 - 7.0 12/19/2018 [place] Absolute 10(9)/L 4:34 PM CDT LABORATORY Lymphocyte 3.2 1.0 - 4.8 12/19/2018 [place] Absolute 10(9)/L 4:34 PM CDT LABORATORY Monocytes 0.6 0.2 - 0.9 12/19/2018 [place] Absolute 10(9)/L 4:34 PM CDT LABORATORY Eosinophil 0.2 0.1 - 0.5 12/19/2018 [place] Absolute 10(9)/L 4:34 PM CDT LABORATORY Basophil 0.1 0.0 - 0.3 12/19/2018 [place] Absolute 10(9)/L 4:34 PM CDT LABORATORY Immature Gran % 0.1 0.0 - 0.5 12/19/2018 [place] % 4:34 PM CDT LABORATORY Specimen Anatomical Collection Method / Collection Time Recei peña Time (Source) Location / Volume Laterality Blood Venipuncture / 12/19/2018 4:30 12/19/2018 4:30 Unknown PM CDT PM CDT Idania Andrade MD LAB_1 Performing Organization Address City/State/ZIP Code Phon e Number [facility] [address] [place] [address] TSH with Free T4 (if TSH Abnormal) (12/19/2018 4:30 PM CDT) P athologist Signature TSH, Reflex 1.63 0.30 - 4.50 12/19/2018 [facility] uIU/mL 10:07 PM CDT LABORATORY Specimen Anatomical Collection Method / Collection Time Recei peña Time (Source) Location / Volume Laterality Blood Venipuncture / 12/19/2018 4:30 12/19/2018 4:30 Unknown PM CDT PM CDT Narrative [facility] - 12/19/2018 10:07 PM CDT Lab will automatically reflex to Free T4 when TSH results are <0.30 uIU/mL or >4.50 mIU/mL. Idania Andrade MD LAB_1 Performing Organization Address City/State/ZIP Code Phon e Number [facility] [address] [place] [address] Hgb A1C (12/19/2018 4:30 PM CDT) P athologist Signature Hemoglobin A1C 5.5 <=5.6 % 12/20/2018 [facility] 9:23 AM CDT LABORATORY Specimen Anatomical Collection Method / Collection Time Recei peña Time (Source) Location / Volume Laterality Blood Venipuncture / 12/19/2018 4:30 12/19/2018 4:30 Unknown PM CDT PM CDT Idania Andrade MD LAB_1 Performing Organization Address City/State/ZIP Code Phon e Number [facility] [address] [place] [address] documented in this encounter Visit Diagnoses Diagnosis Well adult exam Routine general medical examination at a health care facility documented in this encounter Care Teams Nuclear Medicine Specialist Relationship Specialty Start Date End Date Sheeba Castillo APRN, BEEKEEPER PCP - General Nurse Practitioner 07/20/16 [address] [place] [address] documented as of this encounter
--- OUTSIDE RECORDS SUMMARY | 2022-05-09 19:23 | XMS_ITS | Encounter Summary ---
:1975 Author Organization [employer] Address [address] [place] [address] Care Team Providers Name Role Phone Sheeba Castillo APRN, CNP Primary Care Provider [phone] Encounter Details Date Type Department Care Team Description 04/24/2019 Lab Visit [facility] Routine general medical exam ination at health care facility (Primary Dx); [address] [facility] Ulcerative chronic pancoliti s without complications (HRC); [place] [address] Ulcerative pancolitis with r ectal bleeding (HRC) [phone] Social History Tobacco Use Types Packs/Day Years Used Date Smoking Tobacco: Former Cigarettes 0.3 15 Quit : 04/25/2015 Smokeless Tobacco: Never Alcohol Use Standard Drinks/Week Comments Yes 3 (1 standard drink = 0.6 oz pure alcoho l) rarely Sex Assigned at Date Recorded Female 05/09/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 documented as of this encounter Plan of Treatment Upcoming Encounters Date Type Specialty Care Team Description 05/12/2022 Hospital Encounter Chemo Therapy/Infusion Services 09/15/2022 Telemedicine Gastroenterology Eusebio Haines MD [address] [place], [place] [address] documented as of this encounter Procedures Procedure [...] Morphology-RBC and Platelet (04/24/2019 12:49 PM CDT) [facility] gist Method Time Signature RBC Morphology Reviewed 04/24/2019 [place] 1:55 PM CDT LABORATORY Platelet Estimate Adequate Adequate 04/24/2019 [place] 1:55 PM CDT LABORATORY Target Cells 04/24/2019 [place] 1:55 PM CDT LABORATORY Toxic Granulation 04/24/2019 [place] 1:55 PM CDT LABORATORY [place] Bodies 04/24/2019 [place] 1:55 PM CDT LABORATORY Spherocytes 04/24/2019 [place] 1:55 PM CDT LABORATORY Polychromasia 04/24/2019 [place] 1:55 PM CDT LABORATORY Acanthocytes 04/24/2019 [place] 1:55 PM CDT LABORATORY Basophilic Stippling 04/24/2019 [place] 1:55 PM CDT LABORATORY Meme Cells 04/24/2019 [place] 1:55 PM CDT LABORATORY Elliptocytes 04/24/2019 [place] 1:55 PM CDT LABORATORY Ovalocytes 04/24/2019 [place] 1:55 PM CDT LABORATORY Rouleaux 04/24/2019 [place] 1:55 PM CDT LABORATORY Tear Drop Cells 04/24/2019 [place] 1:55 PM CDT LABORATORY Dohle Bodies 04/24/2019 [place] 1:55 PM CDT LABORATORY Hypogranular Neuts 04/24/2019 [place] 1:55 PM CDT LABORATORY Hypersegmented 04/24/2019 [place] Neutrophils 1:55 PM CDT LABORATORY Reactive Lymphoctes 04/24/2019 [place] 1:55 PM CDT LABORATORY Smudge Cells 04/24/2019 [place] 1:55 PM CDT LABORATORY Vaculated Neutrophils 04/24/2019 [place] 1:55 PM CDT LABORATORY Left Shift Detected 04/24/2019 [place] 1:55 PM CDT LABORATORY RBC Agglutination 04/24/2019 [place] 1:55 PM CDT LABORATORY Bite Cells 04/24/2019 [place] 1:55 PM CDT LABORATORY Agranular Platelets 04/24/2019 [facility] Giant Platelets 04/24/2019 [place] 1:55 PM CDT LABORATORY Bilobed Neutrophils 04/24/2019 [facility] PM [facility] LAB[facility] Sickle Cells 04/24/2019 [place] 1:55 PM CDT LABORATORY Laura Rods 04/24/2019 [place] 1:55 PM CDT LABORATORY Atypical Lymphocyte 04/24/2019 [facility] PM CDT LAB[facility] Micromegakaryocyte 04/24/2019 [place] 1:55 PM CDT LABORATORY RBC parasite 04/24/2019 [place] inclusions present 1:55 PM CDT LABORATOR Y WBC organism 04/24/2019 [place] inclusions present 1:55 PM CDT LABORATOR Y Schistocytes 04/24/2019 [place] 1:55 PM CDT LABORATORY Dimorphic Population 04/24/2019 [place] 1:55 PM CDT LABORATORY Large Platelets 04/24/2019 [place] 1:55 PM CDT LABORATORY Specimen Anatomical Collection Method / Collection Time Recei peña Time (Source) Location / Volume Laterality Blood Venipuncture / 04/24/2019 12:49 9 Unknown PM CDT 12:49 PM CDT Faye Felton DIE ASSEMBLER, ORGAN ASSEMBLER LAB_1 Performing Organization Address City/State/ZIP Code Phon e Number [facility] [address] [place] [address] (ABNORMAL) Complete Blood Count-W/Diff (04/24/2019 12:49 PM CDT) [facility] Method Time Signature WBC 20.5 (H) 3.5 - 10.5 04/24/2019 [place] x10(9)/L 2:07 PM CDT LABORATORY RBC 4.44 3.90 - 04/24/2019 [place] 5.03 2:07 PM CDT LABORATORY x10(12)/L Hemoglobin 13.7 12.0 - 04/24/2019 [place] 15.5 g/dL 2:07 PM CDT LABORATORY HCT 41.7 34.9 - 04/24/2019 [place] 44.5 % 2:07 PM CDT LABORATORY MCV 93.9 80.0 - 04/24/2019 [place] 100.0 fL 2:07 PM CDT LABORATORY MCH 30.9 27.6 - 04/24/2019 [place] 33.3 pg 2:07 PM CDT LABORATORY MCHC 32.9 31.5 - 04/24/2019 [place] 35.2 g/dL 2:07 PM CDT LABORATORY RDW 13.1 11.9 - 04/24/2019 [place] 15.5 % 2:07 PM CDT LABORATORY Platelets 372 150 - 450 04/24/2019 [place] x10(9)/L 2:07 PM CDT LABORATORY Automated NRBC 0 <=0 /100 04/24/2019 [place] WBC 2:07 PM CDT LABORATORY Neutrophil 12.6 (H) 1.7 - 7.0 04/24/2019 [place] Absolute 10(9)/L 2:07 PM CDT LABORATORY Lymphocyte 6.8 (H) 1.0 - 4.8 04/24/2019 [place] Absolute 10(9)/L 2:07 PM CDT LABORATORY Monocytes 0.7 0.2 - 0.9 04/24/2019 [place] Absolute 10(9)/L 2:07 PM CDT LABORATORY Eosinophil 0.1 0.0 - 0.5 04/24/2019 [place] Absolute 10(9)/L 2:07 PM CDT LABORATORY Basophil 0.1 0.0 - 0.3 04/24/2019 [place] Absolute 10(9)/L 2:07 PM CDT LABORATORY Immature Gran % 1.0 (H) 0.0 - 0.5 04/24/2019 [place] % 2:07 PM CDT LABORATORY Specimen Anatomical Collection Method / Collection Time Recei peña Time (Source) Location / Volume Laterality Blood Venipuncture / 04/24/2019 12:49 9 Unknown PM CDT 12:49 PM CDT Faye Felton APRN, CNP LAB_1 Performing Organization Address [facility] Code Phon e Number [facility] [address] [place] [address] (ABNORMAL) Lipid Panel - LDLD If Trig High (04/24/2019 12:49 PM CDT) [facility] Method Time Signature Cholesterol 192 0 - 199 04/24/2019 [place] mg/dL 2:52 PM CDT LABORATORY Triglyceride 173 (H) <=149 04/24/2019 [place] mg/dL 2:52 PM CDT LABORATORY HDL Cholesterol 78 >=40 04/24/2019 [place] mg/dL 2:52 PM CDT LABORATORY LDL, Calculated 79 <130 04/24/2019 [place] mg/dL 2:52 PM CDT LABORATORY Non HDL Chol, 114 mg/dL 04/24/2019 [place] Calculated 2:52 PM CDT LABORATORY Cholesterol/HDL 2.5 04/24/2019 [place] Ratio 2:52 PM CDT LABORATORY Hours Fasting 1 04/24/2019 [place] 2:52 PM CDT LABORATORY Specimen Anatomical Collection Method / Collection Time Recei peña Time (Source) Location / Volume Laterality Blood Venipuncture / 04/24/2019 12:49 9 Unknown PM CDT 12:49 PM CDT Faye Felton APRN, CNP LAB_1 Performing Organization Address City/[facility]/ZIP Code Phon e Number [facility] [address] [place] [address] C Reactive Protein (04/24/2019 12:49 PM CDT) P athologist Signature C-Reactive <0.5 0.0 - 0.7 04/24/2019 [place] Protein mg/dL 2:52 PM CDT LABORATORY Specimen Anatomical Collection Method / Collection Time Recei peña Time (Source) Location / Volume Laterality Blood Venipuncture / 04/24/2019 12:49 9 Unknown PM CDT 12:49 PM CDT Faye Felton APRN, CNP LAB_1 Performing Organization Address [facility] Phon e Number [facility] [address] [place], [place] [phone] Hepatic Function Panel (04/24/2019 12:49 PM CDT) athologist Signature Alkaline 50 40 - 150 04/24/2019 [place] Phosphatase U/L 2:52 PM CDT LABORATORY Bilirubin, Total 0.2 0.2 - 1.2 04/24/2019 [place] mg/dL 2:52 PM CDT LABORATORY Bilirubin, 0.1 0.0 - 0.5 04/24/2019 [place] Direct mg/dL 2:52 PM CDT LABORATORY AST (SGOT) 21 10 - 40 04/24/2019 [place] U/L 2:52 PM CDT LABORATORY ALT (SGPT) 30 0 - 55 U/L 04/24/2019 [place] 2:52 PM CDT LABORATORY Protein, Total 6.7 6.4 - 8.3 04/24/2019 [place] g/dL 2:52 PM CDT LABORATORY Albumin 3.5 3.5 - 5.0 04/24/2019 [place] g/dL 2:52 PM CDT LABORATORY Specimen Anatomical Collection Method / Collection Time Recei peña Time (Source) Location / Volume Laterality Blood Venipuncture / 04/24/2019 12:49 9 Unknown PM CDT 12:49 PM CDT Faye Felton APRN, CNP LAB_1 Performing Organization Address [facility] Phon e Number [facility] [address] [place], [place] [phone] CONTAINER TEST (04/24/2019 12:44 PM CDT) P athologist Signature Container Done 04/24/2019 [place] Given 2:00 PM CDT LABORATORY Specimen Anatomical Collection Method Collection Time Receive d Time (Source) Location / / Volume Laterality Other Specimen 04/24/2019 12:44 9 Type PM CDT 12:47 PM CDT Faye Felton APRN, CNP LAB_1 Performing Organization Address City/State/ZIP Code Phon e Number [facility] [address] [facility] [place] [address] documented in this encounter Visit Diagnoses Diagnosis Routine general medical examination at [facility] - Primary Routine general medical examination at [facility] Ulcerative chronic pancolitis without co mplications (HRC) [place] ulcerative (chronic) colitis Ulcerative pancolitis with rectal bleedi ng (HRC) documented in this encounter Care Teams Piccoloist Relationship Specialty Start Date End Date Sheeba Castillo APRN, CNP PCP - General Nurse Practitioner 07/20/16 [address] [place] [address] documented as of this encounter
--- OUTSIDE RECORDS SUMMARY | 2022-05-09 19:23 | XMS_ITS | Encounter Summary ---
:1975 Author Organization [employer] Address [address] [place] [address] Care Team Providers Name Role Phone Sheeba Castillo PASTING MACHINE OPERATOR, IRONWORKER FOREMAN Primary Care Provider [phone] Reason for Visit Reason Comments Treatment Plan Encounter Details Date Type Department Care Team Description 04/30/2019 [facility]phone [facility] [address] Faye Fel[address] A PRN, Treatment Plan Gastroenterology IRONWORKER FOREMAN 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 Verbalized understanding. AL DESIGNER Manfred Azevedo RN - 04/30/2019 3:31 PM CST Bed reservation placed. Call from patient placement. Room is cleaned and ready. If check-in before 7 pm, check in at ground flood admitting. If after 7 pm, check in 1st floor inside ED. Left message to call back with information above. AL DESIGNER Faye Hinojosa APRN, CNP - 04/30/2019 3:29 PM CST Pt being directly admitted to [facility] from clinic. UC flare, failing outpatient steroids.Called hospitalist pager, spoke with Jaclyn, no last name given. Recommended admit, IV steroids (methylprednisolone 20mg TID), and likely rescue Remicade. Please arrange bed reservation. Thank you! AL DESIGNER documented in this encounter Plan of Treatment Upcoming Encounters Date Type Specialty Care Team Description 05/12/2022 Hospital Encounter Chemo Therapy/Infusion Services 09/15/2022 Telemedicine Gastroenterology Eusebio Haines MD [address] [place], [place] [id number] documented as of this encounter Visit Diagnoses Not on filedocumented in this encounter Care Teams Supervisor Phosphoric Acid Relationship Specialty Start Date End Date Sheeba Castillo APRN, IRONWORKER FOREMAN PCP - General Nurse Practitioner 07/20/16 [address] [place] Dinh [id number] documented as of this encounter
--- OUTSIDE RECORDS SUMMARY | 2022-05-09 19:23 | XMS_ITS | Encounter Summary ---
:1975 Author Organization [employer] Address [address] [place] [address] Care Team Providers Name Role Phone Sheeba Castillo APRN, SIERRA Primary Care Provider [phone] Encounter Details Date Type Department Care Team Description 02/20/2019 Lab Visit [facility] Left sided ulcerative [address] (chronic) colitis (HRC) [place] [address] Social History Tobacco Use Types Packs/Day Years Used Date Smoking Tobacco: Former Cigarettes 0.3 15 Quit : 04/25/2015 Smokeless Tobacco: Never Alcohol Use Standard Drinks/Week Comments Yes 3 (1 standard drink = 0.6 oz pure alcoho l) rarely Sex Assigned at Date Recorded Female 05/09/2021 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 Faye Felton APRN, SOFTWARE APPLICATIONS DEVELOPER LAB_1 Performing Organization Address City/State/[facility] Code Phon e Number [facility] [address] [place] [address] (ABNORMAL) Lipid Panel - LDLD If Trig High (02/20/2019 8:21 AM CDT) [facility] Method Time Signature Cholesterol 178 0 - 199 02/20/2019 [place] mg/dL 11:40 AM CDT LABORATORY Triglyceride 163 (H) <=149 02/20/2019 [place] mg/dL 11:40 AM CDT LABORATORY HDL Cholesterol 57 >=40 02/20/2019 [place] mg/dL 11:40 AM CDT LABORATORY LDL, Calculated 88 <130 02/20/2019 [place] mg/dL 11:40 AM CDT LABORATORY Non HDL Chol, 121 <=159 02/20/2019 [place] Calculated mg/dL 11:40 AM CDT LABORATORY Cholesterol/HDL 3.1 02/20/2019 [place] Ratio 11:40 AM CDT LABORATORY Hours Fasting 12 02/20/2019 [place] 11:40 AM CDT LABORATORY Specimen Anatomical Collection Method / Collection Time Recei peña Time (Source) Location / Volume Laterality Blood Venipuncture / 02/20/2019 8:21 02/20/2019 8:21 Unknown AM CDT AM CDT Faye Felton APRN, CNP LAB_1 Performing Organization Address [facility] Phon e Number [facility] [address] [place], [place] [address] C Reactive Protein (02/20/2019 8:21 AM CDT) P athologist Signature C-Reactive <0.5 0.0 - 0.7 02/20/2019 [place] Protein mg/dL 11:40 AM CDT LABORATORY Specimen Anatomical Collection Method / Collection Time Recei peña Time (Source) Location / Volume Laterality Blood Venipuncture / 02/20/2019 8:21 02/20/2019 8:21 Unknown AM CDT AM CDT Faye Felton APRN, CNP LAB_1 Performing Organization Address [facility] e Number [facility] [address] [place], [place] [address] documented in this encounter Visit Diagnoses Diagnosis Left sided ulcerative (chronic) colitis (HRC) Left sided ulcerative (chronic) colitis documented in this encounter Care Teams Gas Fitter Apprentice Relationship Specialty Start Date End Date Sheeba Castillo APRN, SOFTWARE APPLICATIONS DEVELOPER PCP - General Nurse Practitioner 07/20/16 [address] [place] Dinh [address] documented as of this encounter
--- OUTSIDE RECORDS SUMMARY | 2022-05-09 19:23 | XMS_ITS | Encounter Summary ---
:1975 Author Organization [employer] Address [address], [place] [address] Care Team Providers Name Role Phone Sheeba Castillo APRN, ENERGY CONSERVATION REPRESENTATIVE Primary Care Provider [phone] Reason for Visit Reason Onset Date Comments Refill 08/20/2018 Cholestyramine 4mg p owder Encounter Details Date Type Department Care Team Description 08/20/2018 Refill Faye Deleon, Refill (Ch olestyramine Gastroenterology SADDLE CUTTER, ENERGY CONSERVATION REPRESENTATIVE 4mg powder) [address] [facility] [address] [place] [address] [facility] [address] [place], [place] [address] (Wo rk) Social History Tobacco Use Types Packs/Day Years Used Date Smoking Tobacco: Former Cigarettes 0.3 15 Quit : 04/25/2015 Smokeless Tobacco: Never Alcohol Use Standard Drinks/Week Comments Yes 3 (1 standard drink = 0.6 oz pure alcoho l) rarely Sex Assigned at Date Recorded Female 05/09/2021 7:19 PM TOOL AND DIE SUPERVISOR documented as of this encounter Nursing Notes Zina Kenny RN - 08/28/2018 12:11 PM CST Called and left message that Rx was sent in for BID. AND DIE SUPERVISOR Faye Jimenez APRN, CNP - 08/28/2018 12:00 PM CST I sent another Rx for her reflecting ok to increase to twice daily as needed. Hopefully this will besufficient. AND DIE SUPERVISOR Beth Nichols RN - 08/28/2018 11:51 AM CST Pharmacy calling re: Questron stating that patient is questioning if she can have the RX as before where she can increase Questron as needed. Pharmacy would need new Rx. Kassie Holman RN - 08/23/2018 10:13 AM CST Is pt out of refills? If pt takes 4g per day and gets 378g per fill, this should last approximately 90 days. There were 3 additional refills sent on 02/13/18 which in theory should last an entire year until Jan 2019 AND DIE SUPERVISOR Interface, Out Surescripts Prov Query - 08/20/2018 [...] (PN): 105 mg/dL on 01/22/2017 Powered by [employer], Reference: [id number], 08/20/2018 5:10:26 PM TOOL AND DIE SUPERVISOR, Pool: PN REFILL WIZARD ADMIN ([id number]) AND DIE SUPERVISOR Peg Boateng - 08/20/2018 5:09 PM CST Last fill on 07/15/18 for a quantity of 378 AND DIE SUPERVISOR documented in this encounter Plan of Treatment Upcoming Encounters Date Type Specialty Care Team Description 05/12/2022 Hospital Encounter Chemo Therapy/Infusion Services 09/15/2022 Telemedicine Gastroenterology Eusebio Haines MD [address] [place], [place] [id number] documented as of this encounter Visit Diagnoses Not on filedocumented in this encounter Care Teams Senior Industrial Engineer Relationship Specialty Start Date End Date Sheeba Castillo, SADDLE CUTTER, ENERGY CONSERVATION REPRESENTATIVE PCP - General Nurse Practitioner 07/20/16 [address] [place]h [address] documented as of this encounter
--- OUTSIDE RECORDS SUMMARY | 2022-05-09 19:23 | XMS_ITS | Encounter Summary ---
:1975 Author Organization [employer] Address [address] [place] [address] Care Team Providers Name Role Phone Sheeba Castillo APRN, CNP Primary Care Provider [phone] Reason for Visit Reason Comments Injection Encounter Details Date Type Department Care Team Description 03/14/2019 Nursing Visit [facility] Ulcera tive proctitis Medicine with rectal bleeding [address] [facility] (Primary Dx) [place] [address] Social History Tobacco Use Types Packs/Day Years Used Date Smoking Tobacco: Former Cigarettes 0.3 15 Quit : 04/25/2015 Smokeless Tobacco: Never Alcohol Use Standard Drinks/Week Comments Yes 3 (1 standard drink = 0.6 oz pure alcoho l) rarely Sex Assigned at Date Recorded Female 05/09/2021 7:19 PM 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 MILL 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 documented as of this encounter Plan of Treatment Upcoming Encounters Date Type Specialty Care Team Description 05/12/2022 Hospital Encounter Chemo Therapy/Infusion Services 09/15/2022 Telemedicine Gastroenterology Eusebio Haines MD [address] [place], [place] [address] documented as of this encounter Visit Diagnoses Diagnosis Ulcerative proctitis with rectal bleedin g ([facility]) - Primary documented in this encounter Care Teams Bright Cutter Relationship Specialty Start Date End Date Sheeba Castillo APRN, SIERRA PCP - General Nurse Practitioner 07/20/16 [address] [place] Dinh [address] documented as of this encounter
--- OUTSIDE RECORDS SUMMARY | 2022-05-09 19:23 | XMS_ITS | Encounter Summary ---
:1975 Author Organization [employer] Address [address], [place] [address] Care Team Providers Name Role Phone Sheeba Castillo APRN, CNP Primary Care Provider [phone] Reason for Visit Reason Comments Follow-up Encounter Details Date Type Department Care Team Description 04/30/2019 Office Visit Faye Deleon, Ulcerative pancolitis with rectal bleeding (HRC) (Primary Dx); Gastroenterology SIERRA GRANT Immunosuppressed status (HRC) [address] [place] [address], [address] [place] [address] [phone] Social History Tobacco Use Types Packs/Day Years Used Date Smoking Tobacco: Former Cigarettes 0.3 15 Quit : 04/25/2015 Smokeless Tobacco: Never Alcohol Use Standard Drinks/Week Comments Yes 3 (1 standard drink = 0.6 oz pure alcoho l) 3 drinks a week Sex Assigned at Date Recorded Female 05/09/2021 7:19 PM DIRECTOR FIXED INCOME documented as of this encounter Last Filed Vital Signs Vital Sign Reading Time Taken Comments Blood Pressure 161/81 04/30/2019 2:55 PM DIRECTOR FIXED INCOME Pulse 108 04/30/2019 2:55 PM DIRECTOR FIXED INCOME Temperature - - Respiratory Rate 16 04/30/2019 2:55 PM DIRECTOR FIXED INCOME Oxygen Saturation - - Inhaled Oxygen Concentration - - Weight 82.6 kg (182 lb) 04/30/2019 2:55 PM DIRECTOR FIXED INCOME Height - - Body Mass Index 29.38 [...] write a letter for you for work. CTOR FIXED INCOME documented in this encounter Progress Notes Faye Hinojosa APRN, CNP - 04/30/2019 2:50 PM CST GI Clinic Follow Up - IBD Patient: Idania Duarte : 1975 MR#: [id number] [facility]#: [id number] Date of Visit: 04/30/19 Reason for visit: [...] cholestyramine (for overlapping IBS). She sent a [employer] message on 01/29/19 noting increased flare symptoms [...] Formulation 08/09/2001 ??? Influenza IIV4 (Quadrivalent) 0.5mL (52318) 03/23/2014, 03/24/2015, 03/23/2016, 03/26/2017, 03/21/2018, 03/22/2018, 03/31/2019 [...] not getting any better. I reviewed with Idanai that I think we need to admit [...] consult opinion on this in the hospital. Shama is considered, however given the severity of [...] on condition, treatment, and plan of care. CTOR FIXED INCOME documented in this encounter Plan of Treatment Upcoming Encounters Date Type Specialty Care Team Description 05/12/2022 Hospital Encounter Chemo Therapy/Infusion Services 09/15/2022 Telemedicine Gastroenterology Eusebio Haines MD [address] [place], [place] [address] documented as of this encounter Visit Diagnoses Diagnosis Ulcerative pancolitis with rectal bleedi ng (HRC) - Primary Immunosuppressed status (HRC) Unspecified disorder of immune mechanism documented in this encounter Care Teams Home Coordinator Relationship Specialty Start Date End Date Sheeba Castillo APRN, SHALE PLANER OPERATOR HELPER PCP - General Nurse Practitioner 07/20/16 [address] [place] MAGDALENA Dinh [id number] documented as of this encounter
--- OUTSIDE RECORDS SUMMARY | 2022-05-09 19:23 | XMS_ITS | Encounter Summary ---
:1975 Author Organization [employer] Address [address] [place] [address] Care Team Providers Name Role Phone Sheeba Castillo APRN, SIERRA Primary Care Provider [phone] Encounter Details Date Type Department Care Team Description 11/27/2018 teddy [employer] [phone] Social History Tobacco Use Types Packs/Day Years Used Date Smoking Tobacco: Former Cigarettes 0.3 15 Quit : 04/25/2015 Smokeless Tobacco: Never Alcohol Use Standard Drinks/Week Comments Yes 3 (1 standard drink = 0.6 oz pure alcoho l) rarely Sex Assigned at Date Recorded Female 05/09/2021 7:19 PM SOUND TRUCK OPERATOR documented as of this encounter Progress Notes FAMILY MEDICINETEDDY PROVIDER - 11/27/2018 12:00 AM CDT teddy Treatment Plan Diagnosis Conjunctivitis Visit Date November 27, 2018 Idania Bhagaton Date of : 79 Provider Lissa Kinney, Physician Log Chipper Operator Note From Provider Idania, Thanks for using [facility] [employer] today! Your current symptoms suggest that you have a viral pink eye infection. Let's have you watch things over the next day or two to see if this turns into a bacterial infection. Symptoms of bacterial pink eye include thick, goopy discharge that is present most of the time, not just the publications designer crusting that you can easily take care [...] hours Refills: None Sent To: [facility] [place] [address] [place] [address] Treatment Plan Self Care Tip Topics You're [...] (28) (norethindrone-ethin estradiol) Lialda (mesalamine) Allergies None mPortal Information mPortal by [employer] We are an online clinic open 15/01. If you have any questions or comments about this visit, please call or email [email or web address]. documented in this encounter Plan of Treatment Upcoming Encounters Date Type Specialty Care Team Description 05/12/2022 Hospital Encounter Chemo Therapy/Infusion Services 09/15/2022 Telemedicine Gastroenterology Eusebio Haines MD [address] [place] [address] documented as of this encounter Visit Diagnoses Not on filedocumented in this encounter Care Teams Air Launch Weapons Technician Relationship Specialty Start Date End Date Sheeba Castillo APRN, DANCE HALL HOSTESS PCP - General Nurse Practitioner 07/20/16 [address] [place] MAGD[place] Dinh [id number] documented as of this encounter
--- OUTSIDE RECORDS SUMMARY | 2022-05-09 19:23 | XMS_ITS | Encounter Summary ---
:1975 Author Organization [employer] Address [address] [place] [address] Care Team Providers Name Role Phone Sheeba Castillo APRN, SIERRA Primary Care Provider [phone] Reason for Visit Reason Comments Refill triamterene-hydrochlorothiaz enedelia (MAXZIDE-25) 37.5-25 MG tablet [Pharmacy Med Name: TRIAMT-HCTZ 37.5-25MG TABS] Encounter Details Date Type Department Care Team Description 03/11/2019 Refill [facility] Iggy Hernandez MD Refill Medicine [address] [place] [address] Dr Reyna (triamterene-hydrochloro [address] [place], [place] thiazide (MAXZIDE-25) [place] [address] 37.5-25 MG tablet [phone] (Wo rk) [Pharmacy Med Name: TRIAMT-HC TZ 37.5-25MG TABS]) Social History Tobacco Use Types Packs/Day Years Used Date Smoking Tobacco: Former Cigarettes 0.3 15 Quit : 04/25/2015 Smokeless Tobacco: Never Alcohol Use Standard Drinks/Week Comments Yes 3 (1 standard drink = 0.6 oz pure alcoho l) rarely Sex Assigned at Date Recorded Female 05/09/2021 7:19 PM DRAGGER documented as of this encounter Nursing Notes Peter Duron, RN - 03/13/2019 8:22 AM CDT Renewed [...] K: 3.4 mEq/L on 01/30/2019 Powered by [employer], Reference: [id number], 03/11/2019 3:00:30 PM CDT, Pool: DEANDRA FP REFILL ([id number]) documented in this encounter Plan of Treatment Upcoming Encounters Date Type Specialty Care Team Description 05/12/2022 Hospital Encounter Chemo Therapy/Infusion Services 09/15/2022 Telemedicine Gastroenterology Eusebio Haines MD [address] [place] [address] documented as of this encounter Visit Diagnoses Diagnosis Essential hypertension (HRC) Unspecified essential hypertension documented in this encounter Care Teams Researcher Relationship Specialty Start Date End Date Sheeba Castillo, [place] [place] MACHINE TENDER, BUTADIENE CONVERTER HELPER PCP - General Nurse Practitioner 07/20/16 [address] [place] Dinh [id number] documented as of this encounter
--- OUTSIDE RECORDS SUMMARY | 2022-05-09 19:23 | XMS_ITS | Encounter Summary ---
:1975 Author Organization [employer] Address [address], [place] [address] Care Team Providers Name Role Phone Sheeba Castillo APRN, CNP Primary Care Provider [phone] Reason for Visit Reason Comments Prior Authorization For Medication Encounter Details Date Type Department Care Team Description 02/18/2019 Telephone Specialty Center [address] Faye Felton P rior Authorization For Gastroenterology SIERRA GRANT Medication [address] [place], [place] Rick 4-080 [address] [place], [place] [phone] (Wo rk) Social History Tobacco Use Types Packs/Day Years Used Date Smoking Tobacco: Former Cigarettes 0.3 15 Quit : 04/25/2015 Smokeless Tobacco: Never Alcohol Use Standard Drinks/Week Comments Yes 3 (1 standard drink = 0.6 oz pure alcoho l) rarely Sex Assigned at Date Recorded Female 05/09/2021 7:19 PM DIAMOND SELECTOR documented as of this encounter Nursing Notes Faye Burton RN - 03/12/2019 12:02 PM CDT mychart confirmation that instructions for xeljanz sent previously has been read by patient. Manfred Azevedo RN - 03/11/2019 1:30 PM CDT Left message to call back. Advised instructions also sent to [employer]. Faye Hinojosa APRN, CNP - 03/10/2019 5:08 PM CDT Ok, thanks. [...] 03/10/2019 10:09 AM CDT Received approval for Xecharlene for date range 02/02/2019 to 03/05/2020. Case # [id number] Faxed approval paperwork to [facility]. Manfred Azevedo RN - 03/04/2019 2:16 PM CDT Called [facility] to see if PA received 02/28/19. Spoke to Yael unable to locate PA. Re-faxed, confirmation received. Faye Hinojosa APRN, SIERRA - 02/28/2019 4:53 PM CDT Great, strong work Manfred. Manfred Azevedo RN - 02/28/2019 4:43 PM CDT Negative TSPOT result received from RD. Copy placed in Dionicio Hinojosa's mailbox and to HIM. PA, supporting documents, and insurance information faxed to [facility] ([phone]), confirmation received. Manfred Azevedo RN - 02/28/2019 [...] result. Will return call to Gi clinic. [facility] Manfred Azevedo RN - 02/19/2019 8:29 AM CDT Left detailed message to have blood work completed. Will need results prior to submitting PA. Paperwork started at [facility] Dentist desk. Faye Hinojosa APRN, CNP - 02/18/2019 [...] 09/15/2022 Telemedicine Gastroenterology Eusebio Haines MD [address] [place] [address] documented as of this encounter Results (ABNORMAL) Lipid Panel - LDLD If Trig High (04/24/2019 12:49 PM CDT) [facility] Method Time Signature Cholesterol 192 0 - 199 04/24/2019 [place] mg/dL 2:52 PM CDT LABORATORY Triglyceride 173 (H) <=149 04/24/2019 [place] mg/dL 2:52 PM CDT LABORATORY HDL Cholesterol 78 >=40 04/24/2019 [place] mg/dL 2:52 PM CDT LABORATORY LDL, Calculated 79 <130 04/24/2019 [place] mg/dL 2:52 PM CDT LABORATORY Non HDL Chol, 114 mg/dL 04/24/2019 [place] Calculated 2:52 PM CDT LABORATORY Cholesterol/HDL 2.5 04/24/2019 [place] Ratio 2:52 PM CDT LABORATORY Hours Fasting 1 04/24/2019 [place] 2:52 PM CDT LABORATORY Specimen Anatomical Collection Method / Collection Time Recei peña Time (Source) Location / Volume Laterality Blood Venipuncture / 04/24/2019 12:49 9 Unknown PM CDT 12:49 PM CDT Faye Felton APRN, CNP LAB_1 Performing Organization Address [facility] Code Phon e Number [facility] [address] [place] [address] C Reactive Protein (04/24/2019 12:49 PM CDT) P athologist Signature C-Reactive <0.5 0.0 - 0.7 04/24/2019 [place] Protein mg/dL 2:52 PM CDT LABORATORY Specimen Anatomical Collection Method / Collection Time Recei peña Time (Source) Location / Volume Laterality Blood Venipuncture / 04/24/2019 12:49 9 Unknown PM CDT 12:49 PM CDT Faye Felton APRN, CNP LAB_1 Performing Organization Address [facility] e Number [place] [facility] [address] [place] [address] Hepatic Function Panel (04/24/2019 12:49 PM CDT) P athologist Signature Alkaline 50 40 - 150 04/24/2019 [place] Phosphatase U/L 2:52 PM CDT LABORATORY Bilirubin, Total 0.2 0.2 - 1.2 04/24/2019 [place] mg/dL 2:52 PM CDT LABORATORY Bilirubin, 0.1 0.0 - 0.5 04/24/2019 [place] Direct mg/dL 2:52 PM CDT LABORATORY AST (SGOT) 21 10 - 40 04/24/2019 [place] U/L 2:52 PM CDT LABORATORY ALT (SGPT) 30 0 - 55 U/L 04/24/2019 [place] 2:52 PM CDT LABORATORY Protein, Total 6.7 [...] CNP LAB_1 Performing Organization Address City/State/ZIP Code Lauren e Number [place] [facility] [address] [place] [address] documented in this encounter Visit Diagnoses Diagnosis Ulcerative chronic pancolitis without co mplications (HRC) - Primary [place] ulcerative (chronic) colitis documented in this encounter Care Teams Thrill Performer Relationship Specialty Start Date End Date Sheeba Castillo APRN, GENERATION ENGINEER PCP - General Nurse Practitioner 07/20/16 [address] [place] [address] documented as of this encounter
--- OUTSIDE RECORDS SUMMARY | 2022-05-09 19:23 | XMS_ITS | Encounter Summary ---
:1975 Author Organization [employer] Address [address], [place] [address] Care Team Providers Name Role Phone Sheeba Castillo APRN, SIERRA Primary Care Provider [phone] Reason for Visit Reason Comments Follow-up Encounter Details Date Type Department Care Team Description 05/23/2018 Office Visit Edenilson Samano, OD Severe myopia of both eyes (Primary Dx); Ophthalmology 1415 [facility] Dry eye syndrome, bilateral [address] [place] [address] [place], [place] [address] Social History Tobacco Use Types Packs/Day Years Used Date Smoking Tobacco: Former Cigarettes 0.3 15 Quit : 04/25/2015 Smokeless Tobacco: Never Alcohol Use Standard Drinks/Week Comments Yes 3 (1 standard drink = 0.6 oz pure alcoho l) rarely Sex Assigned at Date Recorded Female 05/09/2021 7:19 PM CROP RESEARCH SCIENTIST documented as of this encounter Progress Notes Maria InesEdenilson, OD - 05/23/2018 3:20 PM CST Patient appears alert, oriented, and basically healthy. Assessment: ICD-10-CM 1. Severe myopia of both eyes H52.13 2. Dry eye syndrome, bilateral H04.123 Plan: The findings were discussed with the patient. For more information on instructions given, please see Patient Instructions section. 1/2. Here for Rx recheck. I think her [...] appear stable, likely just small crowded nerves. +PROVIDER ENROLLMENT SPECIALIST BE. Return to clinic for VF/ OCT when ready, or sooner as needed. RESEARCH SCIENTIST documented in this encounter Plan of Treatment Upcoming Encounters Date Type Specialty Care Team Description 05/12/2022 Hospital Encounter Chemo Therapy/Infusion Services 09/15/2022 Telemedicine Gastroenterology Eusebio Haines MD [address] [place], [place] [address] documented as of this encounter Visit Diagnoses Diagnosis Severe myopia of both eyes - Primary Myopia Dry eye syndrome, bilateral documented in this encounter Care Teams Sleeping Car Conductor Relationship Specialty Start Date End Date Sheeba Castillo, PRODUCTION OPERATIONS MANAGER, PALLETISER OPERATOR PCP - General Nurse Practitioner 07/20/16 [address] [place] Dinh [id number] documented as of this encounter
--- OUTSIDE RECORDS SUMMARY | 2022-05-09 19:23 | XMS_ITS | Encounter Summary ---
:1975 Author Organization [employer] Address [address], [place] [address] Care Team Providers Name Role Phone Sheeba Castillo APRN, CNP Primary Care Provider [phone] Reason for Visit Reason Comments Follow-up Encounter Details Date Type Department Care Team Description 02/12/2019 Office Visit Faye Deleon, Left sided ulcerative Gastroenterology SIERRA GRANT (chronic) colitis [address] [facility] [address] [facility] ([facility]) (Primary Dx) [place] [address] [facility] [address] [place] [address] (Wo rk) Social History Tobacco Use Types Packs/Day Years Used Date Smoking Tobacco: Former Cigarettes 0.3 15 Quit : 04/25/2015 Smokeless Tobacco: Never Alcohol Use Standard Drinks/Week Comments Yes 3 (1 standard drink = 0.6 oz pure alcoho l) rarely Sex Assigned at Date Recorded Female 05/09/2021 7:19 PM GROUP BILLING COORDINATOR documented as of this encounter Last [...] in this encounter Progress Notes Faye Hinojosa, RUDY, SIERRA - 02/12/2019 3:40 PM CDT GI Clinic Follow Up - IBD Patient: Francesco Duarte : 1975 MR#: [id number] [facility]#: [id number] Date of Visit: 02/12/19 Reason for visit: [...] ago, doing well. She sent me a Blink (air taxi) message on 01/29/19 noting increased flare symptoms [...] Formulation 08/09/2001 ??? Influenza IIV4 (Quadrivalent) 0.5mL (97897) 03/23/2014, 03/24/2015, 03/23/2016, 03/26/2017, 03/21/2018, 03/22/2018 ??? [...] 09/15/2022 Telemedicine Gastroenterology Eusebio Haines MD [address] [place] [address] documented as of this encounter Results T SPOT TB Test (02/20/2019 8:21 AM CDT) [facility] Time Signature T SPOT TB Negative 02/28/2019 [...] is no t available. Faye Felton APRN, CNP LAB_1 Performing Organization Address City/State/ZIP Code Phon e Number RD [facility] [address] [place] [address] (ABNORMAL) Lipid Panel - LDLD If Trig High (02/20/2019 8:21 AM CDT) [facility] gist Method Time Signature Cholesterol 178 0 - 199 02/20/2019 [place] mg/dL 11:40 AM CDT LABORATORY Triglyceride 163 (H) <=149 02/20/2019 [place] mg/dL 11:40 AM CDT LABORATORY HDL Cholesterol 57 >=40 02/20/2019 [place] mg/dL 11:40 AM CDT LABORATORY LDL, Calculated 88 <130 02/20/2019 [place] mg/dL 11:40 AM CDT LABORATORY Non HDL Chol, 121 <=159 02/20/2019 [place] Calculated mg/dL 11:40 AM CDT LABORATORY Cholesterol/HDL 3.1 02/20/2019 [place] Ratio 11:40 AM CDT LABORATORY Hours Fasting 12 02/20/2019 [place] 11:40 AM CDT LABORATORY Specimen Anatomical Collection Method / Collection Time Recei peña Time (Source) Location / Volume Laterality Blood Venipuncture / 02/20/2019 8:21 02/20/2019 8:21 Unknown AM CDT AM CDT Faye Felton APRN, SIERRA LAB_1 Performing Organization Address City/State/ZIP Code Phon e Number [place] [facility] [address] [place] [address] C Reactive Protein (02/20/2019 8:21 AM CDT) P athologist Signature C-Reactive <0.5 0.0 - 0.7 02/20/2019 [place] Protein mg/dL 11:40 AM CDT LABORATORY Specimen Anatomical Collection Method / Collection Time Recei peña Time (Source) Location / Volume Laterality Blood Venipuncture / 02/20/2019 8:21 02/20/2019 8:21 Unknown AM CDT AM CDT Faye Felton APRN, CNP LAB_1 Performing Organization Address City/State/ZIP Code Phon e Number [place] [facility] [address] [place] [address] documented in this encounter Visit Diagnoses Diagnosis Left sided ulcerative (chronic) colitis (HRC) - Primary Left sided ulcerative (chronic) colitis documented in this encounter Care Teams Speech Pathologist Assistant Relationship Specialty Start Date End Date Sheeba Castillo APRN, SIERRA PCP - General Nurse Practitioner 07/20/16 [address] [place] Dinh [id number] documented as of this encounter
--- OUTSIDE RECORDS SUMMARY | 2022-05-09 19:23 | XMS_ITS | Encounter Summary ---
:1975 Author Organization [employer] Address [address] [place] [address] Care Team Providers Name Role Phone Sheeba Castillo APRN, SIERRA Primary Care Provider [phone] Encounter Details Date Type Department Care Team Description 01/30/2019 Lab Visit [facility] Chronic ulcerative [address] [facility] [place] [address] bleeding (HRC) (Primary Dx) [phone] Social History Tobacco Use Types Packs/Day Years Used Date Smoking Tobacco: Former Cigarettes 0.3 15 Quit : 04/25/2015 Smokeless Tobacco: Never Alcohol Use Standard Drinks/Week Comments Yes 3 (1 standard drink = 0.6 oz pure alcoho l) rarely Sex Assigned at Date Recorded Female 05/09/2021 7:19 PM WARPER CREELER documented as of this encounter Plan of Treatment Upcoming Encounters Date Type Specialty Care Team Description 05/12/2022 Hospital Encounter Chemo Therapy/Infusion Services 09/15/2022 Telemedicine Gastroenterology Eusebio Haines MD [address] [place], [place] [address] documented as of this encounter Procedures Procedure [...] Results CONTAINER TEST (01/30/2019 2:56 PM CDT) P athologist Signature Container Done 01/30/2019 [place] Given 4:00 PM CDT LABORATORY Specimen Anatomical Collection Method Collection Time Receive d Time (Source) Location / / Volume Laterality Other Specimen 01/30/2019 2:56 PM 019 2:57 Type CDT PM CDT Faye Felton MATERIALS TECHNICIAN, HAULAGE ENGINE OPERATOR LAB_1 Performing Organization Address City/State/ZIP Code Phon e Number [facility] [address] [place] [address] Complete Blood Count-W/Diff (01/30/2019 11:46 AM CDT) P athologist Signature WBC 9.4 3.5 - 10.5 01/30/2019 [place] x10(9)/L 12:03 PM CDT LABORATORY RBC 4.58 3.90 - 01/30/2019 [place] 5.03 12:03 PM CDT LABORATORY x10(12)/L Hemoglobin 14.5 12.0 - 01/30/2019 [place] 15.5 g/dL 12:03 PM CDT LABORATORY HCT 41.8 34.9 - 01/30/2019 [place] 44.5 % 12:03 PM CDT LABORATORY MCV 91.3 80.0 - 01/30/2019 [place] 100.0 fL 12:03 PM CDT LABORATORY MCH 31.7 27.6 - 01/30/2019 [place] 33.3 pg 12:03 PM CDT LABORATORY MCHC 34.7 31.5 - 01/30/2019 [place] 35.2 g/dL 12:03 PM CDT LABORATORY RDW 12.4 11.9 - 01/30/2019 [place] 15.5 % 12:03 PM CDT LABORATORY Platelets 352 150 - 450 01/30/2019 [place] x10(9)/L 12:03 PM CDT LABORATORY Automated NRBC 0 <=0 /100 01/30/2019 [place] WBC 12:03 PM CDT LABORATORY Neutrophil 5.5 1.7 - 7.0 01/30/2019 [place] Absolute 10(9)/L 12:03 PM CDT LABORATORY Lymphocyte 2.9 1.0 - 4.8 01/30/2019 [place] Absolute 10(9)/L 12:03 PM CDT LABORATORY Monocytes 0.4 0.2 - 0.9 01/30/2019 [place] Absolute 10(9)/L 12:03 PM CDT LABORATORY Eosinophil 0.4 0.0 - 0.5 01/30/2019 [place] Absolute 10(9)/L 12:03 PM CDT LABORATORY Basophil 0.1 0.0 - 0.3 01/30/2019 [place] Absolute 10(9)/L 12:03 PM CDT LABORATORY Immature Gran % 0.3 0.0 - 0.5 01/30/2019 [place] % 12:03 PM CDT LABORATORY Specimen Anatomical Collection Method / Collection Time Recei peña Time (Source) Location / Volume Laterality Blood Venipuncture / 01/30/2019 11:46 9 Unknown AM CDT 11:46 AM CDT Faye Felton APRN, CNP LAB_1 Performing Organization Address City/State/ZIP Code Phon e Number [facility] [address] [place] [address] Hepatic Function Panel (01/30/2019 11:46 AM CDT) P athologist Signature Alkaline 92 40 - 150 01/30/2019 [place] Phosphatase U/L 2:39 PM CDT LABORATORY Bilirubin, Total 0.3 0.2 - 1.2 01/30/2019 [place] mg/dL 2:39 PM CDT LABORATORY Bilirubin, 0.1 0.0 - 0.5 01/30/2019 [place] Direct mg/dL 2:39 PM CDT LABORATORY AST (SGOT) 24 10 - 40 01/30/2019 [place] U/L 2:39 PM CDT LABORATORY ALT (SGPT) 28 0 - 55 U/L 01/30/2019 [place] 2:39 PM CDT LABORATORY Protein, Total 7.7 6.4 - 8.3 01/30/2019 [place] g/dL 2:39 PM CDT LABORATORY Albumin 3.8 3.5 - 5.0 01/30/2019 [place] g/dL 2:39 PM CDT LABORATORY Specimen Anatomical Collection Method / Collection Time Recei peña Time (Source) Location / Volume Laterality Blood Venipuncture / 01/30/2019 11:46 9 Unknown AM CDT 11:46 AM CDT Faye Felton MATERIALS TECHNICIAN, HAULAGE ENGINE OPERATOR LAB_1 Performing Organization Address City/State/ZIP Code Phon e Number [facility] [address] [place] [address] (ABNORMAL) Electrolytes (NA, K, CL, Bicarb) (01/30/2019 11:46 AM CDT) P athologist Signature Sodium 137 136 - 145 01/30/2019 [facility] mmol/L 2:39 PM CDT LABORATORY Potassium 3.4 (L) 3.5 - 5.1 01/30/2019 [place] mmol/L 2:39 PM CDT LABORATORY Chloride 102 98 - 109 01/30/2019 [place] mmol/L 2:39 PM CDT LABORATORY CO2 24 20 - 29 01/30/2019 [place] mmol/L 2:39 PM CDT LABORATORY Anion Gap 11 7 - 16 01/30/2019 [facility] mmol/L 2:39 PM CDT LABORATORY Specimen Anatomical Collection Method / Collection Time Recei peña Time (Source) Location / Volume Laterality Blood Venipuncture / 01/30/2019 11:46 9 Unknown AM CDT 11:46 AM CDT Faye Felton APRN, CNP LAB_1 Performing Organization Address [facility] [address] [place] [address] Creatinine (01/30/2019 11:46 AM CDT) athologist Signature Creatinine 0.70 0.55 - 01/30/2019 [facility] 1.02 mg/dL 2:39 PM CDT LABORATORY GFR, Estimated >60 >60 01/30/2019 [place] mL/min/1.7 2:39 PM CDT LABORATORY 3m2 GFR, Est If >60 >60 01/30/2019 [place] mL/min/1.7 2:39 PM CDT LABORATORY Micronesian 3m2 Specimen Anatomical Collection Method / Collection Time Recei peña Time (Source) Location / Volume Laterality Blood Venipuncture / 01/30/2019 11:46 9 Unknown AM CDT 11:46 AM CDT Faye Felton APRN, CNP LAB_1 Performing Organization Address [facility] Arian [facility] [address] [place] [address] (ABNORMAL) C Reactive Protein (01/30/2019 11:46 AM CDT) athologist Signature C-Reactive 1.7 (H) 0.0 - 0.7 01/30/2019 [place] Protein mg/dL 2:39 PM CDT LABORATORY Specimen Anatomical Collection Method / Collection Time Recei peña Time (Source) Location / Volume Laterality Blood Venipuncture / 01/30/2019 11:46 9 Unknown AM CDT 11:46 AM CDT Faye Felton APRN, CNP LAB_1 Performing Organization Address [facility] [address] [place] [address] documented in this encounter Visit Diagnoses Diagnosis Chronic ulcerative proctitis with rectal bleeding ([facility]) - Primary Ulcerative (chronic) proctitis documented in this encounter Care Teams Content Developer Relationship Specialty Start Date End Date Sheeba Castillo APRN, HAULAGE ENGINE OPERATOR PCP - General Nurse Practitioner 07/20/16 [address] [place] Dinh [id number] documented as of this encounter
--- OUTSIDE RECORDS SUMMARY | 2022-05-09 19:23 | XMS_ITS | Encounter Summary ---
:1975 Author Organization [employer] Address [address] [place] [address] Care Team Providers Name Role Phone Sheeba Castillo APRN, SIERRA Primary Care Provider [phone] Encounter Details Date Type Department Care Team Description 04/25/2019 Lab Visit [facility] Ulcerative pancolitis with [address] 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 Faye Felton APRN, LIP CUTTER AND SCORER LAB_1 Performing Organization Address City/State/[place] [address] (ABNORMAL) Calprotectin Fecal (04/25/2019 4:00 AM CDT) [facility] Method Time Signature Fecal 181 (H) <=50 ug/g 04/27/2019 [facility] Calprotectin 8:00 PM [facility] Comment: Fecal Calprotectin is an indicator [...] ??121 ug/g or greater: Abnormal Performed by [employer], [address] [place] [address] [email or web address], Romulo Pritchett MD, Lab. Director Specimen Anatomical Collection Method Collection Time Receive d Time (Source) Location / / Volume Laterality Stool Non-blood 04/25/2019 4:00 AM 9 3:09 Collection / CDT PM CDT Unknown Faye Felton APRN, LIP CUTTER AND SCORER LAB_1 Performing Organization Address City/[facility] Phon e Number [employer] [address] [phone] C.Difficile Toxin,Molecular Detection, (04/25/2019 4:00 AM CDT) [facility] Method Time Signature C.difficile Not Detected Not Detected 04/28/2019 [facility] by PCR 9:26 AM [facility] Specimen Anatomical Collection Method Collection Time Receive d Time (Source) Location / / Volume Laterality Stool Non-blood 04/25/2019 4:00 AM 9 3:09 Collection / CDT PM CDT Unknown Narrative [facility] - 04/28/2019 9:26 AM CS T Comment: A single negative test for C. d ifficile means the likelihood this organism is causing the diarrheal illness is extr chauncey low. ??Therefore repeat testing within 7 days of the same diarrheal episode is strongly discouraged. Faye Felton APRN, CNP LAB_1 Performing Organization Address City/State/[facility] Code Phon e Number [address] [address] documented in this encounter Visit Diagnoses Diagnosis Ulcerative pancolitis with rectal bleedi ng ([facility]) documented in this encounter Care Teams Sports Psychologist Relationship Specialty Start Date End Date Sheeba Castillo APRN, LIP CUTTER AND SCORER PCP - General Nurse Practitioner 07/20/16 [address] [place] [address] documented as of this encounter
--- OUTSIDE RECORDS SUMMARY | 2022-05-09 19:23 | XMS_ITS | Encounter Summary ---
:1975 Author Organization [employer] Address [address] [place] [address] Care Team Providers Name Role Phone Sheeba Castillo APRN, SIERRA Primary Care Provider [phone] Reason for Visit Procedure/Equipment (Routine) - Incomplete Specialty Diagnoses / Procedures Referred By Contact Refer red To Contact Diagnoses Chronic ulcerative proctitis with rectal bleeding ([facility]) Faye Felton, LINOLEUM TILE LAYER, Procedures CT Enterography W IV Cont CARRIER PACKER [address] [place] [address] Referral ID Status Reason Start Date Expiration Date Visits V isits Requested Authorized [id number] Incomplete 01/29/2019 04/29/2020 1 1 Encounter Details Date Type Department Care Team Description 02/06/[address] Scan Faye Felton, Chronic ulcerative Procedure [address] [place] LINOLEUM TILE LAYER, CARRIER PACKER proctitis with Drive [address] rectal bleeding [place], [place] [address] (HRC) [address] [facility] [address] Social History Tobacco Use Types Packs/Day Years Used Date Smoking Tobacco: Former Cigarettes 0.3 15 Quit : 04/25/2015 Smokeless Tobacco: Never Alcohol Use Standard Drinks/Week Comments Yes 3 (1 standard drink = 0.6 oz pure alcoho l) rarely Sex Assigned at Date Recorded Female 05/09/2021 7:19 PM LAST CHALKER documented as of this encounter Plan of Treatment Upcoming Encounters Date Type Specialty Care Team Description 05/12/2022 Hospital Encounter Chemo Therapy/Infusion Services 09/15/2022 Telemedicine Gastroenterology Eusebio Haines MD [address] [place] [address] documented as of this encounter Procedures Procedure [...] stool throughout t he colon. There is vtjz-no-qiobtodr wall thickening, and mucosal and mural hyperenhancement [...] stool throughout t he colon. There is yzre-yq-fsyhlpaj wall thickening, and mucosal and mural hyperenhancement [...] colon, sigmoid colon, and rectosigmoid. Faye Felton LINOLEUM TILE LAYER, CARRIER PACKER RAD CT documented in this encounter Visit [...] mL 1,350 mL, Oral, ONCE, On Tamela 8/15/19 at 1730, For 1 dose iopamidol (ISOVUE-370) 76 % injection 10 0 mL Given 02/06/2019 5:30 PM CDT 100 mL 100 mL, Intravenous, ONCE, On Tamela 02/06/19 at 1730, For 1 dose sodium chloride 0.9% injection 10 mL Given 02/06/2019 5:30 PM CDT 10 mL 10 mL, Intravenous, ONCE, On Tamela 02/06/19 at 1730, For 1 dose documented in this encounter Care Teams Art Sales Consultant Relationship Specialty Start Date End Date Sheeba Castillo, LINOLEUM TILE LAYER, CARRIER PACKER PCP - General Nurse Practitioner 07/20/16 [address] [place] [id number] documented as of this encounter
--- OUTSIDE RECORDS SUMMARY | 2022-05-09 19:24 | XMS_ITS | Encounter Summary ---
:1975 Author Organization [employer] Address [address] [place] [address] Care Team Providers Name Role Phone Sheeba Castillo APRN, SIERRA Primary Care Provider [phone] Encounter Details Date Type Department Care Team Description 05/15/2018 teddy Kaur [phone] Social History Tobacco Use Types Packs/Day Years Used Date Smoking Tobacco: Former Cigarettes 0.3 15 Quit : 04/25/2015 Smokeless Tobacco: Never Alcohol Use Standard Drinks/Week Comments Yes 3 (1 standard drink = 0.6 oz pure alcoho l) rarely Sex Assigned at Date Recorded Female 05/09/2021 7:19 PM BATTERY REPAIRER documented as of this encounter Progress Notes FAMILY MEDICINETEDDY PROVIDER - 05/15/2018 12:00 AM CST teddy Treatment Plan Diagnosis Viral Upper Respiratory Infection Visit Date May 15, 2018 Idania Duarte Date of : 79 Provider Chandrika Donovan, Physician Cloth Carrier Note From Provider Nam Emerson- there are [...] hours by using a special blend of xmdw-zds-bfnkhgy products to reduce your pain and other [...] for free. Order(s) fluticasone 50 mcg/actuation spray,suspension [place] 2 spray into both nostrils once a day as directed for 30 days Note: Refills: 2 Sent To: [facility] [place] [address] [place] [address] Treatment Plan Self Care Tip Topics Symptom [...] (28) (norethindrone-ethin estradiol) Lialda (mesalamine) Allergies None [employer] Information [facility] [employer] We are an online clinic open 15/01. If you have any questions or comments about this visit, please call or email [email or web address] ERY REPAIRER documented in this encounter Plan of Treatment Upcoming Encounters Date Type Specialty Care Team Description 05/12/2022 Hospital Encounter Chemo Therapy/Infusion Services 09/15/2022 Telemedicine Gastroenterology Eusebio Haines MD [address] [place], [place] [address] documented as of this encounter Visit Diagnoses Not on filedocumented in this encounter Care Teams Dye Penetrant Testing Technician Relationship Specialty Start Date End Date Sheeba Castillo, ALIGNMENT MECHANIC, HOTEL RESERVATION AGENT PCP - General Nurse Practitioner 07/20/16 [address] [place] Dinh [phone] documented as of this encounter
--- OUTSIDE RECORDS SUMMARY | 2022-05-09 19:24 | XMS_ITS | Encounter Summary ---
:1975 Author Organization [employer] Address [address], [place] [address] Care Team Providers Name Role Phone Sheeba Castillo APRN, SIERRA Primary Care Provider [phone] Reason for Visit Reason Comments BLOOD PRESSURE CHECK Encounter Details Date Type Department Care Team Description 04/26/2017 Nursing Visit [place] Blood pres sure check Rheumatology (Primary Dx) [address] [place] [address] Social History Tobacco Use Types Packs/Day Years Used Date Smoking Tobacco: Former Cigarettes 0.3 15 Quit : 04/25/2015 Smokeless Tobacco: Never Alcohol Use Standard Drinks/Week Comments Yes 3 (1 standard drink = 0.6 oz pure alcoho l) rarely Sex Assigned at Date Recorded Female 05/09/2021 7:19 PM DIRECTOR ENGINEERING documented as of this encounter Last Filed Vital Signs Vital Sign Reading Time Taken Comments Blood Pressure 137/81 04/26/2017 1:37 PM CDT Pulse 107 04/26/2017 1:37 PM CDT Temperature - - Respiratory Rate - - Oxygen Saturation - - Inhaled Oxygen Concentration - - Weight - - Height - - Body Mass Index - - documented in this encounter Progress Notes Ivette Garza CMA - 04/26/2017 3:00 PM CDT Patient had blood pressure checked. Readings recorded. documented in this encounter Plan of Treatment Upcoming Encounters Date Type Specialty Care Team Description 05/12/2022 Hospital Encounter Chemo Therapy/Infusion Services 09/15/2022 Telemedicine Gastroenterology Eusebio Haines MD [address] [place], [place] [address] documented as of this encounter Visit Diagnoses Diagnosis Blood pressure check - Primary Screening for hypertension documented in this encounter Care Teams Bilingual Case Manager Relationship Specialty Start Date End Date Sheeba Castillo, PACK CHANGER, MASTER COOK PCP - General Nurse Practitioner 07/20/[address] [place] [address] documented as of this encounter
--- OUTSIDE RECORDS SUMMARY | 2022-05-09 19:24 | XMS_ITS | Encounter Summary ---
:1975 Author Organization [employer] Address [address] [place] [address] Care Team Providers Name Role Phone Sheeba Castillo APRN, CNP Primary Care Provider [phone] Reason for Visit Reason Onset Date Comments Refill 12/23/2017 Encounter Details Date Type Department Care Team Description 12/23/2017 Refill [facility] Faye Felton APRN, ANIMAL HOSPITAL CLERK Refill [address] [place] [address] 4[address] [place], [place] [address] (Wo rk) Social History Tobacco Use Types Packs/Day Years Used Date Smoking Tobacco: Former Cigarettes 0.3 15 Quit : 04/25/2015 Smokeless Tobacco: Never Alcohol Use Standard Drinks/Week Comments Yes 3 (1 standard drink = 0.6 oz pure alcoho l) rarely Sex Assigned at Date Recorded Female 05/09/2021 7:19 PM STUDENT SERVICES COORDINATOR documented as of this encounter Nursing Notes Zina Kenny RN - 12/25/2017 11:36 AM CDT Last visit: 01-11-17 Recommended F/U: 3 months Next visit: 02-13-18 Labs: CBC completed on 01-03-17, Creatinine & GFR completed on 08-14-16 Chronic medication: yes Since creatinine is over 15 months GI RN is not able to refill per refill medication protocol. Routing to account installation specialist provider as Faye is out of office for a week. Zina Kenny RN - 12/24/2017 8:51 AM CDT From: Idania Duarte To: Faye Hinojosa APRN, CNP Sent: 12/23/2017 1:53 PM CDT Subject: Medication Renewal Request Original authorizing provider: Faye Hinojosa APRN, CNP Kelly Soheila Bhagaton would like a refill of the following medications: LIALDA 1.2 g enteric coated tablet [Faye Hinojosa APRN, CNP] Preferred pharmacy: [facility] [id number] Comment: documented in this encounter Plan of Treatment Upcoming Encounters Date Type Specialty Care Team Description 05/12/2022 Hospital Encounter Chemo Therapy/Infusion Services 09/15/2022 Telemedicine Gastroenterology Eusebio aHines MD [address] [place], [place] [address] documented as of this encounter Visit Diagnoses Not on filedocumented in this encounter Care Teams Trouble Clerk Relationship Specialty Start Date End Date Sheeba Castillo APRN, CNP PCP - General Nurse Practitioner 07/20/16 [address] [place] [id number] documented as of this encounter
--- OUTSIDE RECORDS SUMMARY | 2022-05-09 19:24 | XMS_ITS | Encounter Summary ---
:1975 Author Organization [employer] Address [address] [place] [address] Care Team Providers Name Role Phone Sheeba Castillo INSULATION BATTING MACHINE OPERATOR, DIE PRESSER Primary Care Provider [phone] Encounter Details Date Type Department Care Team Description 11/23/[address] [facility] Sheeba Castillo, Medicine INSULATION BATTING MACHINE OPERATOR, DIE PRESSER [address] [place] [address] [place] [address] [phone] (Wo rk) Social History Tobacco Use Types Packs/Day Years Used Date Smoking Tobacco: Former Cigarettes 0.3 15 Quit : 04/25/2015 Smokeless Tobacco: Never Alcohol Use Standard Drinks/Week Comments Yes 3 (1 standard drink = 0.6 oz pure alcoho l) rarely Sex Assigned at Date Recorded Female 05/09/2021 7:19 PM CAFETERIA COUNTER ATTENDANT documented as of this encounter Nursing Notes Idania Crystal - 11/23/2017 9:41 AM CDT Labs to be addressed at future visit. Interface, Out Surescripts Prov Query - 11/23/2017 9:34 AM CDT SCHEDULE [...] - NEXT LAB APPOINTMENT: None Powered by [employer], Reference: [id number], 11/23/2017 9:34:13 AM CDT, Pool: SILVESTRE FP REFILL ([id number]) documented in this encounter Plan of Treatment Upcoming Encounters Date Type Specialty Care Team Description 05/12/2022 Hospital Encounter Chemo Therapy/Infusion Services 09/15/2022 Telemedicine Gastroenterology Eusebio Haines MD [address] [place] [address] documented as of this encounter Visit Diagnoses Diagnosis Encounter for long-term (current) use of medications - Primary Encounter for long-term (current) use of other medications documented in this encounter Care Teams Core Checker Relationship Specialty Start Date End Date Sheeba Castillo, INSULATION BATTING MACHINE OPERATOR, DIE PRESSER PCP - General Nurse Practitioner 07/20/16 [address] [place] [address] documented as of this encounter
--- OUTSIDE RECORDS SUMMARY | 2022-05-09 19:24 | XMS_ITS | Encounter Summary ---
:1975 Author Organization [employer] Address [address], [place] [address] Care Team Providers Name Role Phone Sheeba Castillo APRN, CNP Primary Care Provider [phone] Reason for Visit Reason Onset Date Comments Refill 01/09/2018 Encounter Details Date Type Department Care Team Description 01/09/2018 Refill [facility] erology Faye Felton APRN, CNP [facility] [address] [facility] [address] [place] [address] 4[address] [place], [place] [address] (Wo rk) Social History Tobacco Use Types Packs/Day Years Used Date Smoking Tobacco: Former Cigarettes 0.3 15 Quit : 04/25/2015 Smokeless Tobacco: Never Alcohol Use Standard Drinks/Week Comments Yes 3 (1 standard drink = 0.6 oz pure alcoho l) rarely Sex Assigned at Date Recorded Female 05/09/2021 7:19 PM BLEACHING SUPERVISOR documented as of this encounter Nursing Notes Zina Kenny RN - 01/10/2018 8:00 AM CDT From: Idania Duarte To: Faye Hinojosa APRN, CNP Sent: 01/09/2018 2:59 PM CDT Subject: Medication Renewal Request Original authorizing provider: Faye Hinojosa APRN, CNP Kelly L. Carlson would like a refill of the following medications: cholestyramine (QUESTRAN) 4 GM/DOSE powder [Faye Hinojosa APRN, ENERGY AUDIT ADVISOR] Preferred pharmacy: [facility] [id number] [address] Comment: Medication renewals requested in this message routed to other providers: Phentermine HCl 37.5 MG capsule [Idania Andrade MD] documented in this encounter Plan of Treatment Upcoming Encounters Date Type Specialty Care Team Description 05/12/2022 Hospital Encounter Chemo Therapy/Infusion Services 09/15/2022 Telemedicine Gastroenterology Eusebio Haines MD [address] [place], [place] [address] documented as of this encounter Visit Diagnoses Not on filedocumented in this encounter Care Teams Trains Service Conductor Relationship Specialty Start Date End Date Sheeba Castillo APRN, ENERGY AUDIT ADVISOR PCP - General Nurse Practitioner 07/20/16 [address] [place] [address] documented as of this encounter
--- OUTSIDE RECORDS SUMMARY | 2022-05-09 19:24 | XMS_ITS | Encounter Summary ---
:1975 Author Organization [employer] Address [address], [place] [address] Care Team Providers Name Role Phone Sheeba Castillo APRN, CNP Primary Care Provider [phone] Reason for Visit Reason Comments Refill Encounter Details Date Type Department Care Team Description 10/17/2017 Refill [facility] Hai Leigh MD Refill Gastroenterology [address] [place] [address] [place], [place] [address] [phone] Social History Tobacco Use Types Packs/Day Years Used Date Smoking Tobacco: Former Cigarettes 0.3 15 Quit : 04/25/2015 Smokeless Tobacco: Never Alcohol Use Standard Drinks/Week Comments Yes 3 (1 standard drink = 0.6 oz pure alcoho l) rarely Sex Assigned at Date Recorded Female 05/09/2021 7:19 PM TOILET AND LAUNDRY SOAP SUPERVISOR documented as of this encounter Nursing Notes Zina Kenny RN - 10/17/2017 12:48 PM CDT Last visit: 01-11-17 Recommended F/U: 3 months Next visit: 02-19-18 Chronic medication: no Since patient has not been on medication for a year GI RN is not able to refill. documented in this encounter Plan of Treatment Upcoming Encounters Date Type Specialty Care Team Description 05/12/2022 Hospital Encounter Chemo Therapy/Infusion Services 09/15/2022 Telemedicine Gastroenterology Eusebio Haines MD [address] [place], [place] [address] documented as of this encounter Visit Diagnoses Not on filedocumented in this encounter Care Teams Manager Shipping Relationship Specialty Start Date End Date Sheeba Castillo, SKIN PEELING MACHINE OPERATOR, SUPERVISOR WINTER PCP - General Nurse Practitioner 07/20/16 [address] [place] [id number] documented as of this encounter
--- OUTSIDE RECORDS SUMMARY | 2022-05-09 19:24 | XMS_ITS | Encounter Summary ---
:1975 Author Organization [employer] Address [address] [place] [address] Care Team Providers Name Role Phone Sheeba Castillo APRN, CNP Primary Care Provider [phone] Reason for Visit Reason Onset Date Comments Refill 01/09/2018 Encounter Details Date Type Department Care Team Description 01/09/2018 Refill [facility] Idania Miller MD Refill [address] [place] [address] [place] [address] [phone] (Wo rk) Social History Tobacco Use Types Packs/Day Years Used Date Smoking Tobacco: Former Cigarettes 0.3 15 Quit : 04/25/2015 Smokeless Tobacco: Never Alcohol Use Standard Drinks/Week Comments Yes 3 (1 standard drink = 0.6 oz pure alcoho l) rarely Sex Assigned at Date Recorded Female 05/09/2021 7:19 PM 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 Pt may call [phone] if any additional questions. Siria Bai RN - 01/10/2018 8:49 AM CDT From: Idania Duarte To: Idania Andrade MD Sent: 01/09/2018 2:59 PM CDT Subject: Medication Renewal Request Original authorizing provider: MD Idania Huizar would like a refill of the following medications: Phentermine HCl 37.5 MG capsule [Idania Andrade MD] Preferred pharmacy: [facility] [id number] [address] Comment: Medication renewals requested in this message routed to other providers: cholestyramine (QUESTRAN) 4 GM/DOSE powder [Faye Hinojosa APRN, TIGHT BARREL INSPECTOR] documented in this encounter Plan of Treatment Upcoming Encounters Date Type Specialty Care Team Description 05/12/2022 Hospital Encounter Chemo Therapy/Infusion Services 09/15/2022 Telemedicine Gastroenterology Eusebio Haines MD [address] [place] [address] documented as of this encounter Visit Diagnoses Diagnosis Non morbid obesity due to excess calorie s (HRC) documented in this encounter Care Teams Installment Loan Collector Relationship Specialty Start Date End Date Sheeba Castillo APRN, TIGHT BARREL INSPECTOR PCP - General Nurse Practitioner 07/20/16 [address] [place] [address] documented as of this encounter
--- OUTSIDE RECORDS SUMMARY | 2022-05-09 19:24 | XMS_ITS | Encounter Summary ---
:1975 Author Organization [employer] Address [address] [place] [address] Care Team Providers Name Role Phone Sheeba Castillo APRN, PNEUMATIC SYSTEM CONVEYOR OPERATOR Primary Care Provider [phone] Reason for Visit Reason Comments Refill DASETTA /35 1-35 MG-MCG tab let [Pharmacy Med Name: DASETTA /35 1-35MG-MCG TABS] Encounter Details Date Type Department Care Team Description 10/17/2017 Refill [facility] Iggy Hernandez MD Refill (DASETTA /[address] Reyna 1-35 MG-MCG tablet [address] [place], [place] [Pharmacy Med Name: [place] [address] DASETTA 1/35 1-35MG-MCG [phone] (Wo rk) TABS]) Social History Tobacco Use Types Packs/Day Years Used Date Smoking Tobacco: Former Cigarettes 0.3 15 Quit : 04/25/2015 Smokeless Tobacco: Never Alcohol Use Standard Drinks/Week Comments Yes 3 (1 standard drink = 0.6 oz pure alcoho l) rarely Sex Assigned at Date Recorded Female 05/09/2021 7:19 PM U.S. SENATOR documented as of this encounter Nursing Notes Clair Armijo RN - 10/19/2017 9:18 AM CDT Renewed medication per medication refill protocol. Requested Prescriptions Signed Prescriptions Disp Refills ??? DASETTA 1-35 MG-MCG tablet 112 Tab 0 Sig: TAKE 1 TABLET BY MOUTH DAILY (EVERY 24 HOURS). TAKE CONTINOUSLY Authorizing Provider: IGGY HERNANDEZ Ordering User: CLAIR ARMIJO Interface, Out Surescripts Prov Query - 10/17/2017 10:13 AM CDT DASETTA 1-35 MG-MCG tablet [Pharmacy Med Name: DASETTA 35 1-35MG-MCG TABS] Medication started: 03/03/2014 Last ordered [...] 84 mm Hg on 12/14/2016 Powered by [employer], Reference: [id number], 10/17/2017 10:13:22 AM DAYAMIT, [place]: DEANDRA MAE REFILL ([id number]) documented in this encounter Plan of Treatment Upcoming Encounters Date Type Specialty Care Team Description 05/12/2022 Hospital Encounter Chemo Therapy/Infusion Services 09/15/2022 Telemedicine Gastroenterology Eusebio Haines MD [address] [place], [place] [address] documented as of this encounter Visit Diagnoses Not on filedocumented in this encounter Care Teams Beauty Shop Manager Relationship Specialty Start Date End Date Sheeba Castillo APRN, PNEUMATIC SYSTEM CONVEYOR OPERATOR PCP - General Nurse Practitioner 07/20/16 [address] [place] [id number] documented as of this encounter
--- OUTSIDE RECORDS SUMMARY | 2022-05-09 19:24 | XMS_ITS | Encounter Summary ---
:1975 Author Organization [employer] Address [address] [place] [address] Care Team Providers Name Role Phone Sheeba Castillo APRN, CNP Primary Care Provider [phone] Reason for Visit Reason Onset Date Comments Refill 07/04/2017 Encounter Details Date Type Department Care Team Description 07/04/2017 Refill [facility] Faye Felton APRN, SIERRA Refill [address] [place] [address] 4[address] [place], [place] [address] (Wo rk) Social History Tobacco Use Types Packs/Day Years Used Date Smoking Tobacco: Former Cigarettes 0.3 15 Quit : 04/25/2015 Smokeless Tobacco: Never Alcohol Use Standard Drinks/Week Comments Yes 3 (1 standard drink = 0.6 oz pure alcoho l) rarely Sex Assigned at Date Recorded Female 05/09/2021 7:19 PM BATTERY CHARGER TESTER documented as of this encounter Nursing Notes Zina Kenny RN - 07/04/2017 11:05 AM CST Last visit: 01-11-17 Recommended F/U: See my chart on 04-16-17 Next visit: none Chronic medication: no See MyChart on 04-16-17 with updates. Since patient has not been on Rx for a year nursing is not able to refill Rx. ERY CHARGER TESTER Zina Kenny RN - 07/04/2017 11:03 AM BATTERY CHARGER TESTER From: Idania Duarte To: Faye Hinojosa APRN, CNP Sent: 07/04/2017 9:27 AM BATTERY CHARGER TESTER Subject: Medication Renewal Request Original authorizing provider: Faye Hinojosa APRN, CNP Kelly Soheila Bhagaton would like a refill of the following medications: cholestyramine (QUESTRAN) 4 GM/DOSE powder [Faye Hinojosa APRN, CNP] Preferred pharmacy: [facility] [id number] [address] Comment: ERY CHARGER TESTER documented in this encounter Plan of Treatment Upcoming Encounters Date Type Specialty Care Team Description 05/12/2022 Hospital Encounter Chemo Therapy/Infusion Services 09/15/2022 Telemedicine Gastroenterology Eusebio Haines MD [address] [place] [address] documented as of this encounter Visit Diagnoses Not on filedocumented in this encounter Care Teams Art Therapist Relationship Specialty Start Date End Date Sheeba Castillo APRN, SIERRA PCP - General Nurse Practitioner 07/20/16 [address] [place] [address] documented as of this encounter
--- OUTSIDE RECORDS SUMMARY | 2022-05-09 19:24 | XMS_ITS | Encounter Summary ---
:1975 Author Organization [employer] Address [address] [place] [address] Care Team Providers Name Role Phone Sheeba Castillo APRN, BUSINESS ASSISTANT Primary Care Provider [phone] Reason for Visit Procedure/Equipment (Routine) - Incomplete Specialty Diagnoses / Procedures Referred By Contact Refer red To Contact Diagnoses Well adult exam Idania Andrade MD Procedures MM Mammogram Screening Bilat W CAD [address] [place] [address] Referral ID Status Reason Start Date Expiration Date Visits V isits Requested Authorized [id number] Incomplete 12/17/2017 03/18/2019 1 1 Encounter Details Date Type Department Care Team Description 01/15/2018 Imaging [place] [facility] Idania Andrade MD Well adult exam [address] [place] [address] [place] [phone] (Wo rk) Social History Tobacco Use Types Packs/Day Years Used Date Smoking Tobacco: Former Cigarettes 0.3 15 Quit : 04/25/2015 Smokeless Tobacco: Never Alcohol Use Standard Drinks/Week Comments Yes 3 (1 standard drink = 0.6 oz pure alcoho l) rarely Sex Assigned at Date Recorded Female 05/09/2021 7:19 PM COMMUNICATION SKILLS INSTRUCTOR documented as of this encounter Plan of Treatment Upcoming Encounters Date Type Specialty Care Team Description 05/12/2022 Hospital Encounter Chemo Therapy/Infusion Services 09/15/2022 Telemedicine Gastroenterology Eusebio Haines MD [address] [place], [place] [address] documented as of this encounter Procedures Procedure [...] facility documented in this encounter Care Teams Cooling Room Attendant Relationship Specialty Start Date End Date Sheeba Castillo, PST SUPERVISOR, BUSINESS ASSISTANT PCP - General Nurse Practitioner 07/20/16 [address] [place] [address] documented as of this encounter
--- OUTSIDE RECORDS SUMMARY | 2022-05-09 19:24 | XMS_ITS | Encounter Summary ---
:1975 Author Organization [employer] Address [address] [place] [address] Care Team Providers Name Role Phone Sheeba Castillo APRN, SIERRA Primary Care Provider [phone] Reason for Visit Reason Comments Dental Hygiene tender gums [place] L due to irri tation by tbrush Encounter Details Date Type Department Care Team Description 03/28/2017 Office Visit [facility] Eileen Nava De ntafito Hygiene (tender Dentistry RDH gums [place] [address] [address] [facility] irritation by tbrush) [place] [address] Social History Tobacco Use Types Packs/Day Years Used Date Smoking Tobacco: Former Cigarettes 0.3 15 Quit : 04/25/2015 Smokeless Tobacco: Never Alcohol Use Standard Drinks/Week Comments Yes 3 (1 standard drink = 0.6 oz pure alcoho l) rarely Sex Assigned at Date Recorded Female 05/09/2021 7:19 PM GLASS BENDER documented as of this encounter Last Filed Vital Signs Vital Sign Reading Time Taken Comments Blood Pressure 138/89 03/28/2017 4:01 PM CDT Pulse 89 03/28/2017 4:01 PM CDT Temperature - - Respiratory Rate - - Oxygen Saturation - - Inhaled Oxygen Concentration - - Weight - - Height - - Body Mass Index - - documented in this encounter Patient Instructions Patient InstructionsEileen Nava, NASEEM - 03/28/2017 4:00 PM CDT Your next [...] documented in this encounter Progress Notes Adelia Montalvo, DDS - 03/28/2017 4:00 PM CDT RECALL [...] Adelia Montalvo DDS 03/28/2017, 4:27 PM Eileen Nava [facility] - 03/28/2017 4:00 PM CDT PROPHY NOTE [...] Services 09/15/2022 Telemedicine Gastroenterology Eusebio Haines MD [address] [place] [address] documented as of this encounter Procedures Procedure Name Priority Date/Time Associated Diagnosis Comme nts PERIODIC ORAL Routine 04/03/2017 7:16 AM CDT Localized gingiva l EVALUATION recession PROPHYLAXIS-ADULT Routine 03/28/2017 4:50 PM CDT Localized gin gival RECALL recession 4 MOD EXISTING Routine 09/02/2015 12:00 AM COMPOSITE FILLING GLASS BENDER 31 B EXISTING COMPOSITE Routine 09/02/2015 12:00 AM FILLING GLASS BENDER 19 DO EXISTING Routine 09/02/2015 12:00 AM COMPOSITE FILLING GLASS BENDER 30 DO EXISTING Routine 09/02/2015 12:00 AM COMPOSITE FILLING GLASS BENDER 18 MOB EXISTING Routine 09/02/2015 12:00 AM COMPOSITE FILLING GLASS BENDER 28 O EXISTING COMPOSITE Routine 09/02/2015 12:00 AM FILLING GLASS BENDER 31 MO EXISTING Routine 09/02/2015 12:00 AM COMPOSITE FILLING GLASS BENDER 5 DO EXISTING COMPOSITE Routine 09/02/2015 12:00 AM FILLING GLASS BENDER 3 DO EXISTING COMPOSITE Routine 09/02/2015 12:00 AM FILLING GLASS BENDER 2 MO EXISTING COMPOSITE Routine 09/02/2015 12:00 AM FILLING GLASS BENDER 19 MO EXISTING Routine 09/02/2015 12:00 AM COMPOSITE FILLING GLASS BENDER 14 O EXISTING COMPOSITE Routine 09/02/2015 12:00 AM FILLING GLASS BENDER 14 LO EXISTING Routine 09/02/2015 12:00 AM COMPOSITE FILLING GLASS BENDER 21 O EXISTING COMPOSITE Routine 09/02/2015 12:00 AM FILLING GLASS BENDER 20 O EXISTING COMPOSITE Routine 09/02/2015 12:00 AM FILLING GLASS BENDER 13 MOD EXISTING Routine 09/02/2015 12:00 AM COMPOSITE FILLING GLASS BENDER 30 B EXISTING AMALGAM Routine 09/02/2015 12:00 AM FILLING GLASS BENDER 12 O EXISTING AMALGAM Routine 09/02/2015 12:00 AM FILLING GLASS BENDER 19 B EXISTING AMALGAM Routine 09/02/2015 12:00 AM FILLING GLASS BENDER documented in this encounter Visit Diagnoses Diagnosis Localized gingival recession - Primary Gingival recession, localized Gingivitis, chronic, non-plaque induced Chronic gingivitis, non-plaque induced documented in this encounter Care Teams Curing Supervisor Relationship Specialty Start Date End Date Sheeba Castillo APRN, SHOP MANAGER PCP - General Nurse Practitioner 07/20/[address] [place] [address] documented as of this encounter
--- OUTSIDE RECORDS SUMMARY | 2022-05-09 19:24 | XMS_ITS | Encounter Summary ---
:1975 Author Organization [employer] Address [address] [place] [address] Care Team Providers Name Role Phone Sheeba Castillo FBI SHARPSHOOTER, HEEL BRUSHER Primary Care Provider [phone] Reason for Visit Reason Onset Date Comments Refill 10/17/2017 Cholestyramine 4gm/d ose powder Encounter Details Date Type Department Care Team Description 10/17/2017 Refill [facility] [address] Faye [address] R efjustyn (Cholestyramine Gastroenterology FBI SHARPSHOOTER, HEEL BRUSHER 4gm/dose powder) [address] [place], [place] Rick 4[address] [address] [place], [place] [phone] (Wo rk) Social History Tobacco Use Types Packs/Day Years Used Date Smoking Tobacco: Former Cigarettes 0.3 15 Quit : 04/25/2015 Smokeless Tobacco: Never Alcohol Use Standard Drinks/Week Comments Yes 3 (1 standard drink = 0.6 oz pure alcoho l) rarely Sex Assigned at Date Recorded Female 05/09/2021 7:19 PM CALENDER ROLL PRESS OPERATOR documented as of this encounter Nursing Notes Zina Kenny RN - 10/18/2017 10:58 AM CDT Last [...] Services 09/15/2022 Telemedicine Gastroenterology Eusebio Haines MD [address] [place], [place] [address] documented as of this encounter Visit Diagnoses Not on filedocumented in this encounter Care Teams Power Lineworker Relationship Specialty Start Date End Date Sheeba Castillo, FBI SHARPSHOOTER, HEEL BRUSHER PCP - General Nurse Practitioner 07/20/16 [address] [place] [phone] documented as of this encounter
--- OUTSIDE RECORDS SUMMARY | 2022-05-09 19:24 | XMS_ITS | Encounter Summary ---
:1975 Author Organization [facility] Address [address] [facility] [address] Care Team Providers Name Role Phone Sheeba Sandoval APRN, CNP Primary Care Provider [phone] Reason for Visit Reason Comments Refill dicyclomine (BENTYL) 20 MG t ablet [Pharmacy Med Name: DICYCLOMINE HCL 20MG TABS] Encounter Details Date Type Department Care Team Description 01/28/2018 Refill [facility] Sheeba Sandoval, Re fill (dicyclomine Medicine [facility] GRANT (BENTYL) 20 MG tablet [address] [facility] [address] [address] [Pharmacy Med Name: [place], [place] [address] [address] [place] [address] DICYCLOMINE HCL 20MG [phone] (Wo rk) TABS]) Social History Tobacco Use Types Packs/Day Years Used Date Smoking Tobacco: Former Cigarettes 0.3 15 Quit : 04/25/2015 Smokeless Tobacco: Never Alcohol Use Standard Drinks/Week Comments Yes 3 (1 standard drink = 0.6 oz pure alcoho l) rarely Sex Assigned at Date Recorded Female 05/09/2021 7:19 PM FILM SORTER documented as of this encounter Nursing Notes Interface, Out Surescripts Prov Query - 01/28/2018 1:03 PM CDT [...] found) Next scheduled visit: None Powered by [email or web address], Reference: [id number], 01/28/2018 1:03:54 PM CDT, Americo: SILVESTRE MAE REFILL ([id number]) documented in this encounter Plan of Treatment Upcoming Encounters Date Type Specialty Care Team Description 05/12/2022 Hospital Encounter Chemo Therapy/Infusion Services 09/15/2022 Telemedicine Gastroenterology Eusebio Haines MD [address] [place] [address] documented as of this encounter Visit Diagnoses Not on filedocumented in this encounter Care Teams Fuels Sales Representative Relationship Specialty Start Date End Date Sheeba Sandoval, BREAD PANNER, PIPELINE TECHNICIAN PCP - General Nurse Practitioner 07/20/16 [address] [address] [place] [address] documented as of this encounter
--- OUTSIDE RECORDS SUMMARY | 2022-05-09 19:24 | XMS_ITS | Encounter Summary ---
:1975 Author Organization [employer] Address [address] [place] [address] Care Team Providers Name Role Phone Sheeba Castillo APRN, CONSULTING SALES MANAGER Primary Care Provider [phone] Reason for Referral Procedure/Equipment (Routine) - Incomplete Specialty Diagnoses / Procedures Referred By Contact Refer red To Contact Diagnoses Well adult exam Idania Andrade MD Procedures MM Mammogram Screening Bilat W CAD [address] [place] [address] Referral ID Status Reason Start Date Expiration Date Visits V isits Requested Authorized [id number] Incomplete 12/17/2017 03/18/2019 1 1 Reason for Visit Reason Comments Annual Exam Encounter Details Date Type Department Care Team Description 12/17/2017 Office Visit [facility] Idania Andrade Well a dult exam (Primary Dx); Medicine Essential hypertension; [address] [facility] [address] Reyna Non morbid obesity due to excess calorie s [place] [address] [place] [phone] Social History Tobacco Use Types Packs/Day Years Used Date Smoking Tobacco: Former Cigarettes 0.3 15 Quit : 04/25/2015 Smokeless Tobacco: Never Alcohol Use Standard Drinks/Week Comments Yes 3 (1 standard drink = 0.6 oz pure alcoho l) rarely Sex Assigned at Date Recorded Female 05/09/2021 7:19 PM IMPLEMENTATION ENGINEER documented as of this encounter Last [...] you are older than 45 and are -[place] or have a father or brother who got prostatecancer when he was younger than 65. When should you call for help? Watch closely for changes in your health, and be sure to contact your doctor if you have any problems or symptoms that concern you. Where can you learn more? 1. Go to SphereUp[employer] or [employer]/V-KeyraCubie. 2. Enter P072 in the search box. Current as of: November 07, 2016 Content Version: 11.7 ?? [id number] [employer]. documented in this encounter Progress Notes Eleanor [...] cancer screening or your test results, call [phone]. Sincerely, Eleanor Lopez RN on behalf of Dr. Shanna Ovalle, Market Maker [facility] Cervical Cancer Screening and Management Idania Andrade [...] Melanoma Trunk 11/01/2010 ??? 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 Preventive Health Assessment: Health [...] Services 09/15/2022 Telemedicine Gastroenterology Eusebio Haines MD [address] [place], [place] [address] documented as of this encounter Procedures Procedure [...] CDT FINAL GYNECOLOGICAL CYTOLOGY REPORT Pathology #: [id number] ?Date Obtained: 12/17/2017 ? Date Received: 12/18/2017 [...] false-negative report s may occur. Performed at [facility], [facility] [place] [address] Idania Andrade MD LAB_1 Performing Organization Address City/State/ZIP Code Phon e Number PN SOFT [address] [place] [address] HPV with 16 18 Genotyping (12/17/2017 4:23 PM CDT) [facility] Method Time Signature HPV High Risk Not Detected PN SOFT 16 HPV High Risk Not Detected PN SOFT 18 Other HPV High Not Detected PN SOFT Risk Not 16/18 Comment: ........................................ ................................. The Robyn HPV Test is a qualitative in v itro test for the detection of Human Papillomavirus in Leidy ePa patient specimens. ??The test utilizes amplifica tion [...] and its pe rformance characteristics determined by [facility]. It has not been cleared or approved by t [facility]. The laboratory is regulated under CLIA [...] - 12/24/2017 1:28 PM CDT Performed at [facility], [facility] [place] [address] CLIA number [id number] Idania Andrade MD LAB_1 Performing Organization Address City/[facility]/ZIP Code Phon e Number PN SOFT [address] [place] [address] Pap Test Order (12/17/2017 4:23 PM CDT) Analysis Performed At Patho logist Time Signature Pap Smear Collected PN SOFT Monolayer tracking test Specimen Anatomical Collection Method Collection Time Receive d Time (Source) Location / / Volume Laterality 12/17/2017 4:23 PM 8 3:52 CDT AM CDT Narrative PN SOFT - 12/17/2017 4:24 PM CDT Performed at [address] [address] CLIA number [id number] Idania Andrade MD LAB_1 Performing Organization Address [facility] Phon e Number PN SOFT [address] [place] [address] [phone] documented in this encounter Visit Diagnoses Diagnosis Well adult exam - Primary Routine general medical examination at a health care facility Essential hypertension (HRC) Unspecified essential hypertension Non morbid obesity due to excess calorie s (HRC) Well adult exam Routine general medical examination at a health care facility documented in this encounter Care Teams Music Coordinator Relationship Specialty Start Date End Date Sheeba Castillo APRN, CONSULTING SALES MANAGER PCP - General Nurse Practitioner 07/20/16 [address] [place] [address] documented as of this encounter
--- OUTSIDE RECORDS SUMMARY | 2022-05-09 19:24 | XMS_ITS | Encounter Summary ---
:1975 Author Organization [employer] Address [address], [place] [address] Care Team Providers Name Role Phone Sheeba Castillo APRN, CNP Primary Care Provider [phone] Reason for Visit Reason Comments Refill Encounter Details Date Type Department Care Team Description 09/20/2017 Refill [facility] [address] Hai Leigh MD Refill Gastroenterology [address] [place] [address] [place], [place] [address] [phone] Social History Tobacco Use Types Packs/Day Years Used Date Smoking Tobacco: Former Cigarettes 0.3 15 Quit : 04/25/2015 Smokeless Tobacco: Never Alcohol Use Standard Drinks/Week Comments Yes 3 (1 standard drink = 0.6 oz pure alcoho l) rarely Sex Assigned at Date Recorded Female 05/09/2021 7:19 PM ACCOUNT FINANCIAL MANAGER documented as of this encounter Nursing [...] Services 09/15/2022 Telemedicine Gastroenterology Eusebio Haines MD [address] [place] [address] documented as of this encounter Visit Diagnoses Diagnosis Ulcerative pancolitis without complicati on (HRC) - Primary documented in this encounter Care Teams Social Media Sr Strategy Manager Relationship Specialty Start Date End Date Sheeba Castillo, SPEECH THERAPY DIRECTOR, COURTROOM REPORTER PCP - General Nurse Practitioner 07/20/16 [address] [place] [phone] documented as of this encounter
--- OUTSIDE RECORDS SUMMARY | 2022-05-09 19:24 | XMS_ITS | Encounter Summary ---
:1975 Author Organization [employer] Address [address] [place] [address] Care Team Providers Name Role Phone Sheeba Castillo APRN, CNP Primary Care Provider [phone] Reason for Visit Reason Comments Care Coordination Encounter Details Date Type Department Care Team Description 04/10/2017 Care Conference [facility] Sheeba Castillo, Medicine [facility] [address] [place] [address] [place] [address] [phone] (Wo rk) Social History Tobacco Use Types Packs/Day Years Used Date Smoking Tobacco: Former Cigarettes 0.3 15 Quit : 04/25/2015 Smokeless Tobacco: Never Alcohol Use Standard Drinks/Week Comments Yes 3 (1 standard drink = 0.6 oz pure alcoho l) rarely Sex Assigned at Date Recorded Female 05/09/2021 7:19 PM THERAPEUTIC RIDING INSTRUCTOR documented as of this encounter Progress Notes Manfred Ortiz LPN - 04/10/2017 2:46 PM CDT Team Care Conference A multidisciplinary team, including Sheeba Castillo APRN, FURNACE SETTER convened to discuss Idania Duarte. The goals of the conference are to improve bailey outcomes, reduce the total cost of care, and provide a coordinated care experience for her. Assessment: The problem list in [facility] was not updated. Health maintenance [...] Services 09/15/2022 Telemedicine Gastroenterology Eusebio Haines MD [address] [place] [address] documented as of this encounter Visit Diagnoses Not on filedocumented in this encounter Care Teams Rn Chemical Dependency Relationship Specialty Start Date End Date Sheeba Castillo APRN, CNP PCP - General Nurse Practitioner 07/20/16 [address] [place] [address] documented as of this encounter
--- OUTSIDE RECORDS SUMMARY | 2022-05-09 19:24 | XMS_ITS | Encounter Summary ---
:1975 Author Organization [employer] Address [address] [place] [address] Care Team Providers Name Role Phone Sheeba Castillo APRN, DIE SIZER Primary Care Provider [phone] Reason for Visit Reason Comments Follow-up first follow up check Encounter Details Date Type Department Care Team Description 03/19/2018 Office Visit [place] Contact Niesha Roque Myopia of both eyes Lens [address] (Primary Dx) [address] [place] [address] [place], [place] [phone] Social History Tobacco Use Types Packs/Day Years Used Date Smoking Tobacco: Former Cigarettes 0.3 15 Quit : 04/25/2015 Smokeless Tobacco: Never Alcohol Use Standard Drinks/Week Comments Yes 3 (1 standard drink = 0.6 oz pure alcoho l) rarely Sex Assigned at Date Recorded Female 05/09/2021 7:19 PM OUTSIDE B2B SALES documented as of this encounter Progress Notes [...] Services 09/15/2022 Telemedicine Gastroenterology Eusebio Haines MD [address] [place], [place] [address] documented as of this encounter Visit Diagnoses Diagnosis Myopia of both eyes - Primary Myopia documented in this encounter Care Teams Mail Superintendent Relationship Specialty Start Date End Date Sheeba Castillo APRN, DIE SIZER PCP - General Nurse Practitioner 07/20/16 [address] [place] [address] documented as of this encounter
--- OUTSIDE RECORDS SUMMARY | 2022-05-09 19:24 | XMS_ITS | Encounter Summary ---
:1975 Author Organization [employer] Address [address] [place] [address] Care Team Providers Name Role Phone Sheeba Castillo MECHANICAL MANUFACTURING ENGINEER, AUTHORS MOTIVATIONAL Primary Care Provider [phone] Encounter Details Date Type Department Care Team Description 09/05/2017 Refill Order [facility] Sheeba Castillo, Medicine MECHANICAL MANUFACTURING ENGINEER, AUTHORS MOTIVATIONAL [address] [place] [address] [place] [address] [place] [address] [phone] (Wo rk) Social History Tobacco Use Types Packs/Day Years Used Date Smoking Tobacco: Former Cigarettes 0.3 15 Quit : 04/25/2015 Smokeless Tobacco: Never Alcohol Use Standard Drinks/Week Comments Yes 3 (1 standard drink = 0.6 oz pure alcoho l) rarely Sex Assigned at Date Recorded Female 05/09/2021 7:19 PM COLD WORKING INSPECTOR documented as of this encounter Nursing Notes Idania Crystal - 09/05/2017 10:35 AM CDT Labs to be addressed at future visit. Interface, Out Surescripts Prov Query - 09/05/2017 9:26 AM CDT SCHEDULE THE FOLLOWING: - CR BY: Now (Due as of 08/09/2017 for triamterene-hydrochlorothiazide (MAXZIDE- 25) 37.5-25 MG tablet) - K BY: Now (Due as of 08/09/2017 for triamterene-hydrochlorothiazide (MAXZIDE- 25) 37.5-25 MG tablet) - NA BY: Now (Due as of 08/09/2017 for triamterene-hydrochlorothiazide (MAXZIDE- 25) 37.5-25 MG tablet) - LAST QUALIFYING VISIT WITH SLAVA GARCIA M: 02/05/2016 (A more recent visit in Family Practice was found) - NEXT SCHEDULED VISIT: None - NEXT LAB APPOINTMENT: None Powered by [employer], Reference: [id number], 09/05/2017 9:26:11 AM CDT, Pool: SILVESTRE MAE REFILL ([id number]) Electronically signed by Interface, Out [employer] Prov Query at 09/05/2017 10:35 AM CDT documented in this encounter Plan of Treatment Upcoming Encounters Date Type Specialty Care Team Description 05/12/2022 Hospital Encounter Chemo Therapy/Infusion Services 09/15/2022 Telemedicine Gastroenterology Eusebio Haines MD [address] [place], [place] [address] documented as of this encounter Visit Diagnoses Diagnosis Encounter for long-term (current) use of medications - Primary Encounter for long-term (current) use of other medications documented in this encounter Care Teams Cras Relationship Specialty Start Date End Date Sheeba Castillo, MECHANICAL MANUFACTURING ENGINEER, AUTHORS MOTIVATIONAL PCP - General Nurse Practitioner 07/20/16 [address] [place] [id number] documented as of this encounter
--- OUTSIDE RECORDS SUMMARY | 2022-05-09 19:24 | XMS_ITS | Encounter Summary ---
:1975 Author Organization [employer] Address [address], [place] [address] Care Team Providers Name Role Phone Sheeba Castillo APRN, CNP Primary Care Provider [phone] Reason for Visit Reason Comments Follow-up Encounter Details Date Type Department Care Team Description 02/13/2018 Office Visit Faye Deleon, [place] ul cerative proctitis with rectal bleeding (HRC) (Primary Dx); Gastroenterology [facility] Irritable bowel syndrome with diarrhea [address] [facility] [address] [place] [address] [facility] [address] [place] [address] (Wo rk) Social History Tobacco Use Types Packs/Day Years Used Date Smoking Tobacco: Former Cigarettes 0.3 15 Quit : 04/25/2015 Smokeless Tobacco: Never Alcohol Use Standard Drinks/Week Comments Yes 3 (1 standard drink = 0.6 oz pure alcoho l) rarely Sex Assigned at Date Recorded Female 05/09/2021 7:19 PM SURGICAL SERVICES MANAGER documented as of this encounter Last [...] in 1 year, sooner if needed Take care, Idania! documented in this encounter Progress Notes Faye Hinojosa APRN, CNP - 02/13/2018 3:40 PM CDT GI Clinic Follow Up - IBD Patient: Idania Duarte : 1975 MR#: [id number] [facility]#: [id number] Date of Visit: 02/13/18 Reason for visit: [...] Services 09/15/2022 Telemedicine Gastroenterology Eusebio Haines MD [address] [place], [place] [address] documented as of this encounter Results (ABNORMAL) C Reactive Protein (02/13/2018 4:13 PM CDT) P athologist Signature CRP 1.4 (H) 0.0 - 0.5 PN SOFT mg/dL Specimen Anatomical Collection Method Collection Time Receive d Time (Source) Location / / Volume Laterality 02/13/2018 4:13 PM 8 4:13 CDT PM CDT Narrative PN SOFT - 02/13/2018 5:31 PM CDT Performed at [address] [address] CLIA number [id number] Faye Felton APRN, CNP LAB_1 Performing Organization Address City/State/ZIP Code Phon e Number PN SOFT [address] [place] [address] [phone] Alanine Aminotransferase (ALT) (02/13/2018 4:13 PM CDT) Patholo gist Method Time Signature Alanine 26 9 - 55 PN SOFT Aminotransferase U/L Specimen Anatomical Collection Method Collection Time Receive d Time (Source) Location / / Volume Laterality 02/13/2018 4:13 PM 8 4:13 CDT PM CDT Narrative PN SOFT - 02/13/2018 5:31 PM CDT Performed at [facility], [facility] [place] [address] [place] [id number] CLIA number [id number] Faye Felton APRN, CNP LAB_1 Performing Organization Address [facility] Phon e Number PN SOFT [address] [place] [address] [phone] Creatinine (02/13/2018 4:13 PM CDT) athologist Signature [...] - 02/13/2018 5:31 PM CDT Performed at [facility], [address] [place] [address] CLIA number [id number] Faye Felton APRN, CNP LAB_1 Performing Organization Address [facility] Phon e Number PN SOFT [address] [place] [address] CBC - Complete Blood Count W/Diff (02/13/2018 [...] PM 8 4:13 CDT PM CDT Narrative DENISE SOFT - 02/13/2018 4:16 PM CDT Performed at [facility], [address] [place] [address] CLIA number [id number] Faye Felton APRN, CNP LAB_1 Performing Organization Address City/State/ZIP Code Phon e Number PN SOFT [address] [place] [address] [phone] documented in this encounter Visit Diagnoses Diagnosis 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
--- OUTSIDE RECORDS SUMMARY | 2022-05-09 19:24 | XMS_ITS | Encounter Summary ---
:1975 Author Organization [employer] Address [address] [place] [address] Care Team Providers Name Role Phone Sheeba Castillo APRN, SIERRA Primary Care Provider [phone] Encounter Details Date Type Department Care Team Description 03/04/2018 Lab Visit [facility] Severe myopia of both eyes [address] [place], [place] [address] Social History Tobacco Use Types Packs/Day Years Used Date Smoking Tobacco: Former Cigarettes 0.3 15 Quit : 04/25/2015 Smokeless Tobacco: Never Alcohol Use Standard Drinks/Week Comments Yes 3 (1 standard drink = 0.6 oz pure alcoho l) rarely Sex Assigned at Date Recorded Female 05/09/2021 7:19 PM GOLF COURSE STARTER documented as of this encounter Plan of Treatment Upcoming Encounters Date Type Specialty Care Team Description 05/12/2022 Hospital Encounter Chemo Therapy/Infusion Services 09/15/2022 Telemedicine Gastroenterology Eusebio Haines MD [address] [place], [place] [address] documented as of this encounter Procedures Procedure [...] encounter Results Glucose (03/04/2018 6:53 AM CDT) P athologist Signature Lab Glucose 92 70 - 100 PN SOFT mg/dL Comment: The stated glucose range is for the fast ing state. Non-fasting glucose range is 70-180 mg/d L Specimen Anatomical Collection Method Collection Time Receive d Time (Source) Location / / Volume Laterality 03/04/2018 6:53 AM 8 6:52 CDT AM CDT Narrative PN SOFT - 03/04/2018 8:16 AM CDT Performed at [facility], [address] [place] [address] CLIA number [id number] Edenilson Spann OD LAB_1 Performing Organization Address City/[facility] Phon e Number PN SOFT [address] [place] [address] Hemoglobin A1C Glycosylated (03/04/2018 6:53 AM CDT) athologist Signature HGB A1C 5.2 4.0 - 5.6 % PN SOFT Specimen Anatomical Collection Method Collection Time Receive d Time (Source) Location / / Volume Laterality 03/04/2018 6:53 AM 8 CDT 12:56 PM CDT Narrative PN SOFT - 03/04/2018 6:07 PM CDT Performed at [facility] [address] [place] [address] CLIA number [id number] Edenilson Spann OD LAB_1 Performing Organization Address City/[facility] Phon e Number PN SOFT [address] [place] [address] documented in this encounter Visit Diagnoses Diagnosis Severe myopia of both eyes Myopia documented in this encounter Care Teams User Experience Analyst Relationship Specialty Start Date End Date Sheeba Castillo, HAND SPRING REPAIRER HELPER, ACCOUNTS SUPERVISOR PCP - General Nurse Practitioner 07/20/16 [address] [place] [address] documented as of this encounter
--- OUTSIDE RECORDS SUMMARY | 2022-05-09 19:24 | XMS_ITS | Encounter Summary ---
:1975 Author Organization [employer] Address [address] [place] [address] Care Team Providers Name Role Phone Sheeba Castillo APRN, SPECIFICATION WRITER Primary Care Provider [phone] Reason for Visit Reason Comments Follow-up likes avaira vitality best but VA on RE still not as good as the LE Encounter Details Date Type Department Care Team Description 04/04/2018 Office Visit [place] Contact Niesha Roque Myopia of both eyes Lens [address] [facility] with astigmatism [address] [facility] (Primary Dx) [place] [address] [place], [place] [phone] [address] Social History Tobacco Use Types Packs/Day Years Used Date Smoking Tobacco: Former Cigarettes 0.3 15 Quit : 04/25/2015 Smokeless Tobacco: Never Alcohol Use Standard Drinks/Week Comments Yes 3 (1 standard drink = 0.6 oz pure alcoho l) rarely Sex Assigned at Date Recorded Female 05/09/2021 7:19 PM PROFESSOR OF VISUAL ARTS documented as of this encounter Progress Notes Lucero Roque - 04/04/2018 3:30 PM CDT Final Contact Lens Rx Brand Base Curve Diameter Sphere Lens Addl. Specs Right N+D 8.4 13.8 -8.00 Daily Wear dist Left avaira vitality 8.4 14.2 -8.50 Daily Wear dist Expiration Date: 04/04/2020 Replacement: Monthly Wearing Schedule: Daily wear ESSOR OF VISUAL ARTS documented in this encounter Plan of Treatment Upcoming Encounters Date Type Specialty Care Team Description 05/12/2022 Hospital Encounter Chemo Therapy/Infusion Services 09/15/2022 Telemedicine Gastroenterology Eusebio Haines MD [address] [place], [place] [address] documented as of this encounter Visit Diagnoses Diagnosis Myopia of both eyes with astigmatism - P rimary documented in this encounter Care Teams Circuit Design Engineer Relationship Specialty Start Date End Date Sheeba Castillo, FONDANT MACHINE OPERATOR, SPECIFICATION WRITER PCP - General Nurse Practitioner 07/20/16 [address] [place] [id number] documented as of this encounter
--- OUTSIDE RECORDS SUMMARY | 2022-05-09 19:24 | XMS_ITS | Encounter Summary ---
:1975 Author Organization [employer] Address [address] [place] [address] Care Team Providers Name Role Phone Sheeba Castillo APRN, CNP Primary Care Provider [phone] Reason for Visit Reason Comments Refill Encounter Details Date Type Department Care Team Description 08/20/2017 Refill Special[facility] alida Love MD Refill Gastroenterology [address] [place] [address] [place], [place] [address] [phone] Social History Tobacco Use Types Packs/Day Years Used Date Smoking Tobacco: Former Cigarettes 0.3 15 Quit : 04/25/2015 Smokeless Tobacco: Never Alcohol Use Standard Drinks/Week Comments Yes 3 (1 standard drink = 0.6 oz pure alcoho l) rarely Sex Assigned at Date Recorded Female 05/09/2021 7:19 PM PARTS SALES COUNTERPERSON documented as of this encounter Nursing Notes [...] until patient schedules recommended follow up appt. S SALES COUNTERPERSON documented in this encounter Plan of Treatment Upcoming Encounters Date Type Specialty Care Team Description 05/12/2022 Hospital Encounter Chemo Therapy/Infusion Services 09/15/2022 Telemedicine Gastroenterology Eusebio Haines MD [address] [place], [place] [address] documented as of this encounter Visit Diagnoses Diagnosis Ulcerative proctitis with rectal bleedin g (HRC) - Primary documented in this encounter Care Teams Tin Dipper Relationship Specialty Start Date End Date Sheeba Castillo APRN, KIDNEY PULLER PCP - General Nurse Practitioner 07/20/16 [address] [place] [address] documented as of this encounter
--- OUTSIDE RECORDS SUMMARY | 2022-05-09 19:24 | XMS_ITS | Encounter Summary ---
:1975 Author Organization [employer] Address [address] [place] [address] Care Team Providers Name Role Phone Sheeba Castillo APRN, OUTSIDE PLANT SUPERVISOR Primary Care Provider [phone] Reason for Visit Reason Comments Annual Exam 2 1/2 yr cl ck and eye exam, BE dist Encounter Details Date Type Department Care Team Description 03/01/2018 Office Visit [place] Contact Niesha Roque A Myopia of both eyes Lens [address] [facility] (Primary Dx) [address] [place], [place] [id number] [place] [id number] Social History Tobacco Use Types Packs/Day Years Used Date Smoking Tobacco: Former Cigarettes 0.3 15 Quit : 04/25/2015 Smokeless Tobacco: Never Alcohol Use Standard Drinks/Week Comments Yes 3 (1 standard drink = 0.6 oz pure alcoho l) rarely Sex Assigned at Date Recorded Female 05/09/2021 7:19 PM DESKTOP ENGINEER documented as of this encounter Progress [...] 09/15/2022 Telemedicine Gastroenterology Eusebio Haines MD [address] [place], [place] [address] documented as of this encounter Visit Diagnoses Diagnosis Myopia of both eyes - Primary Myopia documented in this encounter Care Teams Heavy Equipment Field Mechanic Relationship Specialty Start Date End Date Sheeba Castillo, IT SERVICE MANAGER, OUTSIDE PLANT SUPERVISOR PCP - General Nurse Practitioner 07/20/[address] [place] [address] documented as of this encounter
--- OUTSIDE RECORDS SUMMARY | 2022-05-09 19:24 | XMS_ITS | Encounter Summary ---
:1975 Author Organization [employer] Address [address] [facility] [place] [address] Care Team Providers Name Role Phone Sheeba Castillo APRN, CNP Primary Care Provider [phone] Reason for Visit Reason Comments Refill triamterene-hydrochlorothiaz enedelia (MAXZIDE-25) 37.5-25 MG tablet [Pharmacy Med Name: TRIAMTERENE-HCTZ 37.5- 25MG TABS] Encounter Details Date Type Department Care Team Description 04/25/2017 Refill [facility] Chandrika Garcia, Refill Medicine [facility] (triamterene-hydrochloro [address] thiazide (MAXZIDE-25) [place], [place] [address] 37.5-25 MG tablet [phone] [employer] [place], [place] [Pharmacy Me d Name: [id number] TRIAMTERENE-HCTZ [phone] (Wo rk) 37.5-25MG TABS]) Social History Tobacco Use Types Packs/Day Years Used Date Smoking Tobacco: Former Cigarettes 0.3 15 Quit : 04/25/2015 Smokeless Tobacco: Never Alcohol Use Standard Drinks/Week Comments Yes 3 (1 standard drink = 0.6 oz pure alcoho l) rarely Sex Assigned at Date Recorded Female 05/09/2021 7:19 PM BINDERY CHIEF documented as of this encounter Nursing Notes [...] K: 3.7 mEq/L on 08/14/2016 Powered by [employer], Reference: [id number], 04/25/2017 5:07:56 PM CDT, Pool: SILVESTRE MAE REFILL ([id number]) documented in this encounter Plan of Treatment Upcoming Encounters Date Type Specialty Care Team Description 05/12/2022 Hospital Encounter Chemo Therapy/Infusion Services 09/15/2022 Telemedicine Gastroenterology Eusebio Haines MD [address] [place] [address] documented as of this encounter Visit Diagnoses Not on filedocumented in this encounter Care Teams Trench Trimmer Fine Relationship Specialty Start Date End Date Sheeba Castillo, ENVIRONMENTAL SERVICES PROJECT MANAGER, CONTINUOUS IMPROVEMENT INTERN PCP - General Nurse Practitioner 07/20/16 [address] [place] [address] documented as of this encounter
--- OUTSIDE RECORDS SUMMARY | 2022-05-09 19:24 | XMS_ITS | Encounter Summary ---
:1975 Author Organization [employer] Address [address] [place] [address] Care Team Providers Name Role Phone Sheeba Castillo APRN, SIERRA Primary Care Provider [phone] Reason for Visit Reason Comments Follow-up PT stopped by and asked if s he needed new RX for contacts due to change in glasses RX Encounter Details Date Type Department Care Team Description 03/04/2018 Initial Consult [place] Contact Niesha Roque Myopia of both eyes Lens [address] [facility] (Primary Dx) [address] [place], [place] [address] [address] Social History Tobacco Use Types Packs/Day Years Used Date Smoking Tobacco: Former Cigarettes 0.3 15 Quit : 04/25/2015 Smokeless Tobacco: Never Alcohol Use Standard Drinks/Week Comments Yes 3 (1 standard drink = 0.6 oz pure alcoho l) rarely Sex Assigned at Date Recorded Female 05/09/2021 7:19 PM DESIGN ENGINEERING MANAGER documented as of this encounter Progress [...] Services 09/15/2022 Telemedicine Gastroenterology Eusebio Haines MD [address] [place], [place] [address] documented as of this encounter Visit Diagnoses Diagnosis Myopia of both eyes - Primary Myopia documented in this encounter Care Teams Aitchbone Breaker Relationship Specialty Start Date End Date Sheeba Castillo APRN, CONDOMINIUM ASSOCIATION MANAGER PCP - General Nurse Practitioner 07/20/16 [address] [place] [address] documented as of this encounter
--- OUTSIDE RECORDS SUMMARY | 2022-05-09 19:24 | XMS_ITS | Encounter Summary ---
:1975 Author Organization [employer] Address [address] [place] [address] Care Team Providers Name Role Phone Sheeba Castillo APRN, SIERRA Primary Care Provider [phone] Reason for Visit Reason Comments Refill Phentermine HCl 37.5 MG caps ule [Pharmacy Med Name: PHENTERMINE HCL 37.5MG CAPS] Encounter Details Date Type Department Care Team Description 09/26/2017 Refill [facility] Iggy Hernandez MD Refill (Phentermine HCl Medicine [address] [place] [address] Dr Reyna 37.5 MG capsule [address] [place], [place] [Pharmacy Med Name: [place] [address] PHENTERMINE HCL 37.5MG [phone] (Wo rk) CAPS]) Social History Tobacco Use Types Packs/Day Years Used Date Smoking Tobacco: Former Cigarettes 0.3 15 Quit : 04/25/2015 Smokeless Tobacco: Never Alcohol Use Standard Drinks/Week Comments Yes 3 (1 standard drink = 0.6 oz pure alcoho l) rarely Sex Assigned at Date Recorded Female 05/09/2021 7:19 PM CREDIT FRONT OFFICE DEVELOPER documented as of this encounter Nursing Notes Ifrah Felton MA - 09/26/2017 1:16 PM CDT Left below message on pt's VM. Iggy Hernandez MD - 09/26/2017 12:19 PM CDT Needs visit prior to refill of this, visits required every 6 months for this med Interface, Out Deep Driver Prov Query - 09/26/2017 11:09 AM CDT Phentermine [...] visit: 12/17/2017 (in Family Practice) Powered by [employer], Reference: [id number], 09/26/2017 11:09:46 AM CDT, Pool: LIRIANO FP REFILL ([id number]) Interface, Out Deep Driver Prov Query - 09/26/2017 11:09 AM CDT No Careplan note found by [employer]. documented in this encounter Plan of Treatment Upcoming Encounters Date Type Specialty Care Team Description 05/12/2022 Hospital Encounter Chemo Therapy/Infusion Services 09/15/2022 Telemedicine Gastroenterology Eusebio Haines MD [address] [place] [address] documented as of this encounter Visit Diagnoses Not on filedocumented in this encounter Care Teams Client Solutions Specialist Relationship Specialty Start Date End Date Sheeba Castillo, CARBONATING STONE CLEANER, QUALITY CONTROLLER PCP - General Nurse Practitioner 07/20/[address] [facility] [address] documented as of this encounter
--- OUTSIDE RECORDS SUMMARY | 2022-05-09 19:24 | XMS_ITS | Encounter Summary ---
:1975 Author Organization [employer] Address [address], [place] [address] Care Team Providers Name Role Phone Sheeba Castillo APRN, SIERRA Primary Care Provider [phone] Reason for Visit Reason Comments Dental Hygiene no cc's Encounter Details Date Type Department Care Team Description 01/16/2018 Office Visit [facility] Eileen Nava De ntal Hygiene (no Dentistry [facility] cc's) [address] [facility] [address] [place] [phone] Social History Tobacco Use Types Packs/Day Years Used Date Smoking Tobacco: Former Cigarettes 0.3 15 Quit : 04/25/2015 Smokeless Tobacco: Never Alcohol Use Standard Drinks/Week Comments Yes 3 (1 standard drink = 0.6 oz pure alcoho l) rarely Sex Assigned at Date Recorded Female 05/09/2021 7:19 PM POMOLOGY TEACHER documented as of this encounter Last [...] this encounter Patient Instructions Patient InstructionsEileen Nava RD - 01/16/2018 4:10 PM CDT Your next [...] should help you maintain this low risk. Iggy, we look forward to seeing you at your next visit! Thank you for choosing [facility]. documented in this encounter Progress Notes Eileen Nava RDH - 01/16/2018 4:10 PM CDT PROPHY NOTE PROPHY/ASSESSMENT:[id number]::PROPHY NOTE Collaborative Agreement Patient consents to have [...] this visit ??? PERIODIC ORAL EVALUATION ??? [id number] ??? PROPHYLAXIS-ADULT RECALL Eileen Nava 01/16/2018, 4:53 [...] Services 09/15/2022 Telemedicine Gastroenterology Eusebio Haines MD [address] [place] [address] documented as of this encounter Procedures Procedure Name Priority Date/Time Associated Diagnosis Comme nts PERIODIC ORAL Routine 01/16/2018 4:15 PM Routine adult health EVALUATION CDT maintenance [id number] Routine 01/16/2018 4:15 PM Routine adult he alth CDT maintenance PROPHYLAXIS-ADULT Routine 01/16/2018 4:15 PM Routine adult hea lth RECALL CDT maintenance documented in this encounter Visit Diagnoses Diagnosis Routine adult health maintenance - Prima ry Routine general medical examination at a health care facility documented in this encounter Care Teams Garment Form Assembler Relationship Specialty Start Date End Date Sheeba Castillo, RUDY, SPEECH LANG PATH THERAPIST PCP - General Nurse Practitioner 07/20/16 [address] [place] [address] documented as of this encounter
--- OUTSIDE RECORDS SUMMARY | 2022-05-09 19:24 | XMS_ITS | Encounter Summary ---
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 Likely physiological. (+) HARDNESS TESTER BE. Denies any symptoms of Headache, diplopia, [...] 09/15/2022 Telemedicine Gastroenterology Eusebio Haines MD [address] [employer] [employer] [place], [place] [address] documented as of this encounter Results Glucose [...] - 03/04/2018 8:16 AM CDT Performed at [facility], [address] [place] [address] CLIA number [id number] Edenilson Spann OD LAB_1 Performing Organization Address City/State/ZIP Code Phon e Number PN SOFT [address] [place] [address] Hemoglobin A1C Glycosylated (03/04/2018 6:53 AM CDT) P athologist Signature HGB A1C 5.2 4.0 - 5.6 % PN SOFT Specimen Anatomical Collection Method Collection Time Receive d Time (Source) Location / / Volume Laterality 03/04/2018 6:53 AM 8 CDT 12:56 PM CDT Narrative PN SOFT - 03/04/2018 6:07 PM CDT Performed at [facility], [address] [place] [address] CLIA number [id number] Edenilson Tatum Maria Ines OD LAB_1 Performing Organization Address City/State/ZIP Code Phon e Number SOFT [address] [place] [address] [phone] documented in this encounter Visit Diagnoses Diagnosis Examination of eyes and vision - Primary Severe myopia of both eyes Myopia Hypertension, unspecified type (HRC) 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
--- OUTSIDE RECORDS SUMMARY | 2022-05-09 19:24 | XMS_ITS | Encounter Summary ---
:1975 Author Organization [employer] Address [address] [place] [address] Care Team Providers Name Role Phone Sheeba Castillo APRN, SIERRA Primary Care Provider [phone] Encounter Details Date Type Department Care Team Description 02/13/2018 Lab Visit [facility] Chronic ulcerative [address] [facility] [place] [address] bleeding (HRC) [phone] Social History Tobacco Use Types Packs/Day Years Used Date Smoking Tobacco: Former Cigarettes 0.3 15 Quit : 04/25/2015 Smokeless Tobacco: Never Alcohol Use Standard Drinks/Week Comments Yes 3 (1 standard drink = 0.6 oz pure alcoho l) rarely Sex Assigned at Date Recorded Female 05/09/2021 7:19 PM SERVER SECURITY ADMINISTRATOR documented as of this encounter Plan of Treatment Upcoming Encounters Date Type Specialty Care Team Description 05/12/2022 Hospital Encounter Chemo Therapy/Infusion Services 09/15/2022 Telemedicine Gastroenterology Eusebio Haines MD [address] [place] [address] documented as of this encounter [...] encounter Results Differential (02/13/2018 4:13 PM CDT) athologist Signature Absolute 5.5 1.8 - 8.0 [...] - 02/13/2018 4:16 PM CDT Performed at [facility], [address] [place] [address] CLIA number [id number] Faye Felton APRN, ENTERPRISE ARCHITECT LAB_1 Performing Organization Address City/State/ZIP Code Phon e Number PN SOFT [address] [place] [address] [phone] (ABNORMAL) C Reactive Protein (02/13/2018 4:13 PM CDT) athologist Signature CRP 1.4 (H) 0.0 - 0.5 PN SOFT mg/dL Specimen Anatomical Collection Method Collection Time Receive d Time (Source) Location / / Volume Laterality 02/13/2018 4:13 PM 8 4:13 CDT PM CDT Narrative PN SOFT - 02/13/2018 5:31 PM CDT Performed at [facility], [address] [place] [address] CLIA number [id number] Faye Felton APRN, CNP LAB_1 Performing Organization Address [facility] Phon e Number PN SOFT [address] [place] [address] Alanine Aminotransferase (ALT) (02/13/2018 4:13 PM CDT) Patholo gist Method Time Signature Alanine 26 9 - 55 PN SOFT Aminotransferase U/L Specimen Anatomical Collection Method Collection Time Receive d Time (Source) Location / / Volume Laterality 02/13/2018 4:13 PM 8 4:13 CDT PM CDT Narrative PN SOFT - 02/13/2018 5:31 PM CDT Performed at [facility], [facility] [address] [place] [address] CLIA number [id number] Faye Felton APRN, CNP LAB_1 Performing Organization Address [facility] Phon e Number PN SOFT [address] [place] [address] Creatinine (02/13/2018 4:13 PM CDT) P athologist [...] - 02/13/2018 5:31 PM CDT Performed at [facility], [address] [place] [address] CLIA number [id number] Faye Felton APRN, CNP LAB_1 Performing Organization Address [facility] Phon e Number PN SOFT [address] [place] [address] CBC - Complete Blood Count W/Diff (02/13/2018 [...] - 02/13/2018 4:16 PM CDT Performed at [facility], [address] [place] [address] CLIA number [id number] Faye Felton APRN, CNP LAB_1 Performing Organization Address [facility] Phon e Number PN SOFT [address] [place] [address] documented in this encounter Visit Diagnoses Diagnosis 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
--- OUTSIDE RECORDS SUMMARY | 2022-05-09 19:24 | XMS_ITS | Encounter Summary ---
:1975 Author Organization [employer] Address [address] [facility] [place] [address] Care Team Providers Name Role Phone Sheeba Castillo APRN, CNP Primary Care Provider [phone] Reason for Visit Reason Comments Refill triamterene-hydrochlorothiaz enedelia (MAXZIDE-25) 37.5-25 MG tablet [Pharmacy Med Name: TRIAMTERENE-HCTZ 37.5- 25MG TABS] Encounter Details Date Type Department Care Team Description 09/05/2017 Refill [facility] Chandrika Garcia, Refill Medicine [facility]ER[facility] GRANT (triamterene-hydrochloro [address] thiazide (MAXZIDE-25) [place], [place] [address] 37.5-25 MG tablet [phone] [place], [place] [Pharmacy Me d Name: [id number] TRIAMTERENE-HCTZ [phone] (Wo rk) 37.5-25MG TABS]) Social History Tobacco Use Types Packs/Day Years Used Date Smoking Tobacco: Former Cigarettes 0.3 15 Quit : 04/25/2015 Smokeless Tobacco: Never Alcohol Use Standard Drinks/Week Comments Yes 3 (1 standard drink = 0.6 oz pure alcoho l) rarely Sex Assigned at Date Recorded Female 05/09/2021 7:19 PM CAST IRON DRAIN PIPE LAYER documented as of this encounter Nursing Notes Peter Duron, RN - 09/06/2017 9:38 AM CDT Further assistance needed to complete refill request Reason: RN Reviewed--Need signed order in [place] for pended medication. Last visit with Bright [...] (Sent to [facility]) Powered by [employer], Reference: [id number], 09/05/2017 9:26:11 AM CDT, [place]: SILVESTRE MARCUMILL ([id number]) documented in this encounter Plan of Treatment Upcoming Encounters Date Type Specialty Care Team Description 05/12/2022 Hospital Encounter Chemo Therapy/Infusion Services 09/15/2022 Telemedicine Gastroenterology Eusebio Haines MD [address] [place] [address] documented as of this encounter Visit Diagnoses Not on filedocumented in this encounter Care Teams Signal Apprentice Relationship Specialty Start Date End Date Sheeba Castillo, ROPE TIER, SYSTEMS SOFTWARE DESIGNER PCP - General Nurse Practitioner 07/20/16 [address] [place] [address] documented as of this encounter
--- OUTSIDE RECORDS SUMMARY | 2022-05-09 19:24 | XMS_ITS | Encounter Summary ---
:1975 Author Organization [facility] Address [address] [place] [address] Care Team Providers Name Role Phone Sheeba Castillo APRN, SIERRA Primary Care Provider [phone] Reason for Visit Reason Comments Refill Phentermine HCl 37.5 MG caps ule [Pharmacy Med Name: PHENTERMINE HCL 37.5MG CAPS] Encounter Details Date Type Department Care Team Description 04/29/2018 Refill [facility] Iggy Andarde MD Refill (Phentermine HCl [address] Reyna 37.5 MG capsule [address] [place], [place] [[place] [address] PHENTERMINE HCL 37.5MG [phone] (Wo rk) CAPS]) Social History Tobacco Use Types Packs/Day Years Used Date Smoking Tobacco: Former Cigarettes 0.3 15 Quit : 04/25/2015 Smokeless Tobacco: Never Alcohol Use Standard Drinks/Week Comments Yes 3 (1 standard drink = 0.6 oz pure alcoho l) rarely Sex Assigned at Date Recorded Female 05/09/2021 7:19 PM MECHANICAL CAD DRAFTER documented as of this encounter Nursing Notes Interface, Out Surescripts Prov Query - 04/29/2018 10:55 AM CST Phentermine HCl 37.5 MG capsule [Pharmacy Med Name: PHENTERMINE HCL 37.5MG CAPS] Medication started: 10/12/2016 Last ordered by IGGY ANDRADE (133 days ago) QTY: 30, Refills: 3, Sig: take 1 cap by mouth daily. (changed but equivalent) -> Medication cannot be delegated. Last qualifying visit: 12/17/2017 (with IGGY ANDRADE) Next scheduled visit: None Powered by [employer], Reference: [id number], 04/29/2018 10:55:09 AM MECHANICAL CAD DRAFTER, Pool: DEANDRA FP REFILL ([id number]) ANICAL CAD DRAFTER Interface, Out Orb Health Prov Query - 04/29/2018 10:55 AM CST No Careplan note found by [employer]. ANICAL CAD DRAFTER documented in this encounter Plan of Treatment Upcoming Encounters Date Type Specialty Care Team Description 05/12/2022 Hospital Encounter Chemo Therapy/Infusion Services 09/15/2022 Telemedicine Gastroenterology Eusebio Haines MD [address] [place], [place] [address] documented as of this encounter Visit Diagnoses Not on filedocumented in this encounter Care Teams Fisher Trawl Line Relationship Specialty Start Date End Date Sheeba Castillo, STATISTICAL REPORTING ANALYST, MINING DETAIL DRAFTSPERSON PCP - General Nurse Practitioner [id number] [place] [address] documented as of this encounter
--- OUTSIDE RECORDS SUMMARY | 2022-05-09 19:24 | XMS_ITS | Encounter Summary ---
:1975 Author Organization [employer] Address [address] [place] [address] Care Team Providers Name Role Phone Sheeba Castillo APRN, TRANSPORTER DRIVER Primary Care Provider [phone] Reason for Visit Reason Comments Refill triamterene-hydrochlorothiaz enedelia (MAXZIDE-25) 37.5-25 MG tablet [Pharmacy Med Name: TRIAMTERENE-HCTZ 37.5- 25MG TABS] Encounter Details Date Type Department Care Team Description 11/23/2017 Refill [facility] Iggy Hernandez Refil l Medicine (triamterene-hydrochloro [address] Reyna thiazide (MAXZIDE-25) [place], [place] [address] [place], [place] 37.5-25 MG tablet [phone] [Pharmacy Med Name: [phone] TRIAMTERENE-HCT Z (Work) 37.5-25MG TABS]) Social History Tobacco Use Types Packs/Day Years Used Date Smoking Tobacco: Former Cigarettes 0.3 15 Quit : 04/25/2015 Smokeless Tobacco: Never Alcohol Use Standard Drinks/Week Comments Yes 3 (1 standard drink = 0.6 oz pure alcoho l) rarely Sex Assigned at Date Recorded Female 05/09/2021 7:19 PM TROLLEY COLLECTOR documented as of this encounter Nursing [...] (Sent to [facility]) Powered by [employer], Reference: [id number], 11/23/2017 9:34:12 AM CDT, Pool: SILVESTRE REFILL ([id number]) documented in this encounter Plan of Treatment Upcoming Encounters Date Type Specialty Care Team Description 05/12/2022 Hospital Encounter Chemo Therapy/Infusion Services 09/15/2022 Telemedicine Gastroenterology Eusebio Haines MD [address] [place] [place], [place] [id number] documented as of this encounter Visit Diagnoses Not on filedocumented in this encounter Care Teams Vessel Traffic Officer Relationship Specialty Start Date End Date Sheeba Castillo, COMMERCIAL LITIGATION PARALEGAL, TRANSPORTER DRIVER PCP - General Nurse Practitioner 07/20/16 [address] [place] [id number] documented as of this encounter
--- OUTSIDE RECORDS SUMMARY | 2022-05-09 19:25 | XMS_ITS | Encounter Summary ---
:1975 Author Organization [employer] Address [address] [place] [address] Care Team Providers Name Role Phone Sheeba Castillo APRN, CNP Primary Care Provider [phone] Reason for Visit Reason Comments Follow-up Encounter Details Date Type Department Care Team Description 01/11/2017 Office Visit [place], Ulcerative (chronic) proctitis, without complications (HRC) (Primary Dx); Gastroenterology SIERRA GRANT History of Clostridium difficile colitis ; [address] [facility] [address] [place] [address] Irritable bowel [place] [address] [facility] [address] [place], [place] [id number] (Wo rk) Social History Tobacco Use Types Packs/Day Years Used Date Smoking Tobacco: Former Cigarettes 0.3 15 Quit : 04/25/2015 Smokeless Tobacco: Never Alcohol Use Standard Drinks/Week Comments Yes 0 (1 standard drink = 0.6 oz pure alcoho l) rarely Sex Assigned at Date Recorded Female 05/09/2021 7:19 PM PLATE GRAINER documented as of this encounter Last Filed [...] GI Clinic Follow Up - IBD Patient: Iadnia Duarte : 1975 MR#: [id number] [facility]#: [id number] Date of Visit: 01/11/17 Reason for visit: [...] continued to decline and was admitted to [facility] on July 25.?? She was demonstrated to [...] Services 09/15/2022 Telemedicine Gastroenterology Eusebio Haines MD [address] [place], [place] [address] documented as of this encounter Visit Diagnoses Diagnosis Ulcerative (chronic) proctitis, without complications (HRC) - Primary History of Clostridium difficile colitis Irritable bowel syndrome with diarrhea Irritable bowel syndrome documented in this encounter Care Teams Egg Producer Relationship Specialty Start Date End Date Sheeba Castillo APRN, SIERRA PCP - General Nurse Practitioner 07/20/16 [address] [place] [address] documented as of this encounter
--- OUTSIDE RECORDS SUMMARY | 2022-05-09 19:25 | XMS_ITS | Encounter Summary ---
:1975 Author Organization [employer] Address [address] [address] Care Team Providers Name Role Phone Sheeba Castillo APRN, SIERRA Primary Care Provider [phone] Reason for Visit Reason Onset Date Comments Refill 12/25/2016 Encounter Details Date Type Department Care Team Description 12/25/2016 [facility]ill [facility] [address] Hai Leigh MD Refill Gastroenterology [address] [place] [address] [place], [place] [address] [phone] Social History Tobacco Use Types Packs/Day Years Used Date Smoking Tobacco: Former Cigarettes 0.3 15 Quit : 04/25/2015 Smokeless Tobacco: Never Alcohol Use Standard Drinks/Week Comments No 0 (1 standard drink = 0.6 oz pure alcoho l) rarely Sex Assigned at Date Recorded Female 05/09/2021 7:19 PM STEEL INSPECTOR documented as of this encounter Nursing Notes Zina Kenny RN - 12/25/2016 12:53 PM CDT From: Idania Duarte To: Yimi Leigh MD Sent: 12/25/2016 10:55 AM CDT Subject: Medication Renewal Request Original authorizing provider: MD Idania Aldana would like a refill of the following medications: mesalamine (LIALDA) 1.2 G enteric coated tablet [Yimi Leigh MD] Preferred pharmacy: [facility] [address] [address]OLM Comment: documented in this encounter Plan of Treatment Upcoming Encounters Date Type Specialty Care Team Description 05/12/2022 Hospital Encounter Chemo Therapy/Infusion Services 09/15/2022 Telemedicine Gastroenterology Eusebio Haines MD [address] [place], [place] [address] documented as of this encounter Visit Diagnoses Diagnosis Ulcerative pancolitis without complicati on (HRC) documented in this encounter Care Teams Instructor Bridge Relationship Specialty Start Date End Date Sheeba Castillo, SEWER TAPPER, PASTER OPERATOR PCP - General Nurse Practitioner 07/20/16 [address] [place] [address] documented as of this encounter
--- OUTSIDE RECORDS SUMMARY | 2022-05-09 19:25 | XMS_ITS | Encounter Summary ---
:1975 Author Organization [employer] Address [address] [address] Care Team Providers Name Role Phone Sheeba Sandoval APRN, SIERRA Primary Care Provider [phone] Reason for Visit Reason Comments Refill DASETTA 1-35 MG-MCG tab let [Pharmacy Med Name: DASETTA /35 1-35MG-MCG TABS] Encounter Details Date Type Department Care Team Description 11/21/2016 Refill [facility] Sheeba Sandoval, Ref ill (DASETTA /35 Medicine [facility]ER[facility] GRANT 1-35 MG-MCG tablet [address] [address] [place] [Ph[place]: [place] [address] [place] [address] DASETTA /35 1-35MG-MCG [phone] (Wo rk) TABS]) Social History Tobacco Use Types Packs/Day Years Used Date Smoking Tobacco: Former Cigarettes 0.3 15 Quit : 04/25/2015 Smokeless Tobacco: Never Alcohol Use Standard Drinks/Week Comments No 0 (1 standard drink = 0.6 oz pure alcoho l) rarely Sex Assigned at Date Recorded Female 05/09/2021 7:19 PM CAR SUPERVISOR documented as of this encounter Nursing Notes Joanne Cao - 11/24/2016 10:06 AM CDT Appointment letter sent via [facility] July Tilley RN - 11/24/2016 9:17 AM CDT OFFICE APPOINTMENT NEEDED Please notify patient to schedule an appointment within 30 days. Requested Prescriptions Signed Prescriptions Disp Refills ??? norethindrone-eth estradiol (DASETTA 1/35) 1-35 MG-MCG tablet 112 Tab 0 Sig: Take 1 tablet by mouth daily (every 24 hours). PATIENT TAKES CONTINOUSLY Authorizing Provider: SHEEBA SANDOVAL Ordering User: JULY TILLEY Interface, Out Surescripts Prov Query - 11/21/2016 12:53 PM CDT DASETTA 1/35 1-35 MG-MCG tablet [Pharmacy Med Name: DASETTA 1/35 1-35MG-MCG TABS] Medication started: 03/03/2014 Last ordered by SHEEBA SANDOVAL C: 11/24/2015 (363 days ago) QTY: 112, Refills: [...] 85 mm Hg on 08/04/2016 Powered by Path, Reference: [id number], 11/21/2016 12:53:21 PM CDT, Pool: DEANDRA CARMELITA ELISE ([id number]) documented in this encounter Plan of Treatment Upcoming Encounters Date Type Specialty Care Team Description 05/12/2022 Hospital Encounter Chemo Therapy/Infusion Services 09/15/2022 Telemedicine Gastroenterology Eusebio Haines MD [address] [place], [place] [address] documented as of this encounter Visit Diagnoses Not on filedocumented in this encounter Care Teams Chain Testing Machine Operator Relationship Specialty Start Date End Date Sheeba Sandoval, UNIVERSAL GRINDER TOOL, LENS GRINDER AND POLISHER PCP - General Nurse Practitioner 07/20/16 [address] [address] [place] [id number] documented as of this encounter
--- OUTSIDE RECORDS SUMMARY | 2022-05-09 19:25 | XMS_ITS | Encounter Summary ---
:1975 Author Organization [employer] Address [address] [address] Care Team Providers Name Role Phone Sheeba Castillo APRN, ELECTRONIC COMPONENT PROCESSOR Primary Care Provider [phone] Reason for Visit Reason Comments Dental Conversion Legacy EDR to [place] convers ion Encounter Details Date Type Department Care Team Description 11/30/2016 Dental Conversion [facility] Adelia Montalvo, [facility] DDS [address] [facility] [address] [place], [place] [address] [place], [place] [phone] [address] Social History Tobacco Use Types Packs/Day Years Used Date Smoking Tobacco: Former Cigarettes 0.3 15 Quit : 04/25/2015 Smokeless Tobacco: Never Alcohol Use Standard Drinks/Week Comments No 0 (1 standard drink = 0.6 oz pure alcoho l) rarely Sex Assigned at Date Recorded Female 05/09/2021 7:19 PM COMMERCIAL HVAC TECHNICIAN documented as of this encounter Miscellaneous Notes Miscellaneous - Interface, In Edr Dental Conversion - 09/19/2016 12:00 AM CDT 09/19/2016: Online Appt Request: thierno to horace online appt documented in this encounter Plan of Treatment Upcoming Encounters Date Type Specialty Care Team Description 05/12/2022 Hospital Encounter Chemo Therapy/Infusion Services 09/15/2022 Telemedicine Gastroenterology Eusebio Haines MD [address] [place], [place] [address] documented as of this encounter Visit Diagnoses Not on filedocumented in this encounter Care Teams Blue Line Hanger Relationship Specialty Start Date End Date Sheeba Castillo, TAXATION CONSULTANT, ELECTRONIC COMPONENT PROCESSOR PCP - General Nurse Practitioner 07/20/16 [address] [place] [address] documented as of this encounter
--- OUTSIDE RECORDS SUMMARY | 2022-05-09 19:25 | XMS_ITS | Encounter Summary ---
:1975 Author Organization [employer] Address [address] [address] Care Team Providers Name Role Phone Sheeba Castillo APRN, CNP Primary Care Provider [phone] Reason for Visit Reason Onset Date Comments Post Hospital Discharge Follow Up 07/31/2016 Encounter Details Date Type Department Care Team Description 07/31/[address] [facility] Sheeba Castillo, Pos t [facility] Medicine [place] [address] [address] [address] [place] [address] [place], [place] [address] (Wo rk) Social History Tobacco Use Types Packs/Day Years Used Date Smoking Tobacco: Former Cigarettes 0.3 15 Quit : 04/25/2015 Smokeless Tobacco: Never Alcohol Use Standard Drinks/Week Comments Yes 0 (1 standard drink = 0.6 oz pure alcoho l) rarely Sex Assigned at Date Recorded Female 05/09/2021 7:19 PM FISHERY BIOLOGIST documented as of this encounter Nursing Notes Siria Bai RN - 07/31/2016 3:48 PM CST Post hospitalization discharge follow up call completed. See doc flowsheet: [facility] for details. ERY BIOLOGIST documented in this encounter Plan of Treatment Upcoming Encounters Date Type Specialty Care Team Description 05/12/2022 Hospital Encounter Chemo Therapy/Infusion Services 09/15/2022 Telemedicine Gastroenterology Eusebio Haines MD [address] [place] [address] documented as of this encounter Visit Diagnoses Not on filedocumented in this encounter Care Teams Loom Fixer Helper Relationship Specialty Start Date End Date Sheeba Castillo, FOREST NURSERY SUPERVISOR, MAINTENANCE FOREMAN PCP - General Nurse Practitioner 07/20/16 [address] [address] [place] [id number] documented as of this encounter
--- OUTSIDE RECORDS SUMMARY | 2022-05-09 19:25 | XMS_ITS | Encounter Summary ---
:1975 Author Organization [employer] Address [address] [place] [address] Care Team Providers Name Role Phone Sheeba Castillo APRN, CNP Primary Care Provider [phone] Reason for Referral Consult/Transfer Care (Routine) - Closed Specialty Diagnoses / Procedures Referred By Contact Refer red To Contact Diagnoses Ulcerative rectosigmoiditis with rectal bleeding (HRC) Eye Eileen Chairez APRN, CNP [address] [place] [address] Referral ID Status Reason Start Date Expiration Date Visits Requ ested Visits Authorized [id number] Closed 08/14/2016 11/13/2017 1 1 Scheduling Instructions Your provider has recommended an appoint ment with Cindy Zelaya. You may call [phone] to schedule your appoi ntment. If you do not schedule an appointment within the next 1 to 3 business days, we will call you to help arrange your appointment. We suggest you call your [employer] insurance company about your coverage and benefits for this appointment. 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); Gastroenterology RUDY King CNP Eye redness [address] [address] [place] [address] [phone] Social History Tobacco Use Types Packs/Day Years Used Date Smoking Tobacco: Former Cigarettes 0.3 15 Quit : 04/25/2015 Smokeless Tobacco: Never Alcohol Use Standard Drinks/Week Comments Yes 0 (1 standard drink = 0.6 oz pure alcoho l) rarely Sex Assigned at Date Recorded Female 05/09/2021 7:19 PM AUTOMOBILE MECHANIC SUPERVISOR documented as of this encounter Last Filed Vital Signs Vital Sign Reading Time Taken Comments Blood Pressure 134/86 08/14/2016 3:47 PM AUTOMOBILE MECHANIC SUPERVISOR Pulse 114 08/14/2016 3:47 PM AUTOMOBILE MECHANIC SUPERVISOR Temperature - - Respiratory Rate 16 08/14/2016 3:47 PM AUTOMOBILE MECHANIC SUPERVISOR Oxygen Saturation - - Inhaled Oxygen Concentration - - Weight 89.4 kg (197 lb) 08/14/2016 3:47 PM AUTOMOBILE MECHANIC SUPERVISOR Height 165.7 cm (5' 5.25) 08/14/2016 3:47 PM AUTOMOBILE MECHANIC SUPERVISOR Body Mass Index 32.53 08/14/2016 3:47 PM AUTOMOBILE MECHANIC SUPERVISOR documented in this encounter Patient Instructions Patient InstructionsEileen Bernabe APRN, CNP - 08/14/2016 4:19 PM AUTOMOBILE MECHANIC SUPERVISOR Immunosuppressants Azathioprine (Imuran) or Mercaptopurine (6-MP) are [...] questions. Lab results will be in your Switch[employer] account, or will be sent by letter. [...] your primary care d octor, or a blood bank technologist know if you have any concerning skin [...] you have multiple sclerosis or have had Guillain-Enterprise syndrome, please let myself know as these [...] once and a booster in 5 years. MOBILE MECHANIC SUPERVISOR documented in this encounter Progress Notes Eileen Bernabe APRN, CNP - 08/14/2016 3:53 PM CST Name: Idania Duarte MR#: [id number] CSN: [id number] Date of Visit: 08/14/2016 : 1975 HPI: [...] questions. Lab results will be in your [employer] account, or will be sent by letter. [...] your primary care d octor, or a blood bank technologist know if you have any concerning skin [...] you have multiple sclerosis or have had Guillain-Enterprise syndrome, please let myself know as these [...] your patient. Eileen Bernabe APRN, CNP Gastroenterology [facility] MOBILE MECHANIC SUPERVISOR documented in this encounter Plan of Treatment Upcoming Encounters Date Type Specialty Care Team Description 05/12/2022 Hospital Encounter Chemo Therapy/Infusion Services 09/15/2022 Telemedicine Gastroenterology Eusebio Haines MD [address] [place], [place] [address] Scheduled Referrals Name Type Priority Associated Diagnoses Order S chedule Ophthalmology Referral Routine Ulcerative Ordered: Consult-Adult/Peds rectosigmoiditis with 08/14/2016 rectal bleeding (HRC) Eye redness documented as of this encounter Results (ABNORMAL) C Reactive Protein (08/14/2016 4:41 PM AUTOMOBILE MECHANIC SUPERVISOR) athologist Signature CRP 0.6 (H) 0.0 - 0.5 PN SOFT mg/dL Specimen Anatomical Collection Method Collection Time Receive d Time (Source) Location / / Volume Laterality 08/14/2016 4:41 PM 7 4:41 AUTOMOBILE MECHANIC SUPERVISOR PM AUTOMOBILE MECHANIC SUPERVISOR Narrative PN SOFT - 08/14/2016 5:06 PM AUTOMOBILE MECHANIC SUPERVISOR Performed at [facility], [address] [place] [address] CLIA number [id number] Eileen Bernabe APRN, CNP LAB_1 Performing Organization Address City/State/ZIP Code Phon e Number PN SOFT [address] [place] [address] [phone] Creatinine (08/14/2016 4:41 PM AUTOMOBILE MECHANIC SUPERVISOR) athologist Signature Creatinine Serum 0.60 0.55 - [...] Volume Laterality 08/14/2016 4:41 PM 7 4:41 AUTOMOBILE MECHANIC SUPERVISOR PM AUTOMOBILE MECHANIC SUPERVISOR Narrative PN SOFT - 08/14/2016 5:06 PM AUTOMOBILE MECHANIC SUPERVISOR Performed at [facility], [address] [place] [address] CLIA number [id number] Eileen Bernabe APRN, CNP LAB_1 Performing Organization Address [facility] Phon e Number PN SOFT [address] [place] [address] Potassium (08/14/2016 4:41 PM AUTOMOBILE MECHANIC SUPERVISOR) P athologist Signature Potassium 3.7 3.5 - 5.2 PN SOFT mmol/L Specimen Anatomical Collection Method Collection Time Receive d Time (Source) Location / / Volume Laterality 08/14/2016 4:41 PM 7 4:41 AUTOMOBILE MECHANIC SUPERVISOR PM AUTOMOBILE MECHANIC SUPERVISOR Narrative PN SOFT - 08/14/2016 5:06 PM AUTOMOBILE MECHANIC SUPERVISOR Performed at [facility], [address] [place] [address] CLIA number [id number] Eileen Bernabe APRN, CNP LAB_1 Performing Organization Address [facility] Phon e Number PN SOFT [address] [place] [address] Sodium (08/14/2016 4:41 PM AUTOMOBILE MECHANIC SUPERVISOR) P athologist Signature Sodium 138 136 - 145 PN SOFT mmol/L Specimen Anatomical Collection Method Collection Time Receive d Time (Source) Location / / Volume Laterality 08/14/2016 4:41 PM 7 4:41 AUTOMOBILE MECHANIC SUPERVISOR PM AUTOMOBILE MECHANIC SUPERVISOR Narrative PN SOFT - 08/14/2016 5:06 PM AUTOMOBILE MECHANIC SUPERVISOR Performed at [facility], [address] [place] [address] CLIA number [id number] Eileen King Florecita GRANT CNP LAB_1 Performing Organization Address City/State/ZIP Code Phon e Number PN SOFT [address] [place] [address] documented in this encounter Visit Diagnoses Diagnosis 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 Eye redness Redness or discharge of eye Ulcerative rectosigmoiditis with rectal bleeding (HRC) Eye redness Redness or discharge of eye documented in this encounter Care Teams Cnc Service Engineer Relationship Specialty Start Date End Date Sheeba Castillo APRN, SIERRA PCP - General Nurse Practitioner 07/20/[address] [place] [address] documented as of this encounter
--- OUTSIDE RECORDS SUMMARY | 2022-05-09 19:25 | XMS_ITS | Encounter Summary ---
:1975 Author Organization [employer] [facility] Address [address] [place] [address] Care Team Providers Name Role Phone Sheeba Castillo APRN, SIERRA Primary Care Provider [phone] Encounter Details Date Type Department Care Team Description 01/04/2017 Lab Visit [facility] Ulcerative pancolitis [address] [facility] without complication (HRC) [place] [address] Social History Tobacco Use Types Packs/Day Years Used Date Smoking Tobacco: Former Cigarettes 0.3 15 Quit : 04/25/2015 Smokeless Tobacco: Never Alcohol Use Standard Drinks/Week Comments No 0 (1 standard drink = 0.6 oz pure alcoho l) rarely Sex Assigned at Date Recorded Female 05/09/2021 7:19 PM PNEUMATIC TUBE REPAIRER documented as of this encounter Plan of Treatment Upcoming Encounters Date Type Specialty Care Team Description 05/12/2022 Hospital Encounter Chemo Therapy/Infusion Services 09/15/2022 Telemedicine Gastroenterology Eusebio Haines MD [address] [place] [address] documented as of this encounter [...] ??121 ug/g or greater: Abnormal Performed by [facility] [address] [place] [id number] [email or web address], Romulo Pritchett MD - Lab . Director Specimen Anatomical Collection Method Collection Time Receive d Time (Source) Location / / Volume Laterality 01/04/2017 5:14 AM 7 8:57 CDT PM CDT Narrative PN SOFT - 01/06/2017 8:46 PM CDT Performed at [facility] [address] [place] [address] CLIA number [id number] Yimi Leigh MD LAB_1 Performing Organization Address City/State/[facility] Code Phon e Number PN SOFT [address] [place], [place] [address] documented in this encounter Visit Diagnoses Diagnosis Ulcerative pancolitis without complicati on (HRC) documented in this encounter Care Teams Weatherization Crew Leader Relationship Specialty Start Date End Date Sheeba Castillo APRN, ELECTRONICS TECHNICIAN APPRENTICE PCP - General Nurse Practitioner 07/20/16 [address] [place] [address] documented as of this encounter
--- OUTSIDE RECORDS SUMMARY | 2022-05-09 19:25 | XMS_ITS | Encounter Summary ---
:1975 Author Organization [employer] Address [address] [place] [address] Care Team Providers Name Role Phone Sheeba Castillo APRN, COMPUTER SYSTEMS SOFTWARE ENGINEER Primary Care Provider [phone] Reason for Visit Reason Comments ROUTINE HEALTH MAINTENANCE Encounter Details Date Type Department Care Team Description 12/14/2016 Office Visit [facility] Idania Andrade Nithya, Darin jimenez exam (Primary Dx); Medicine Essential hypertension; [address] Reyna Malignant melanoma of skin of trunk, exc ept scrotum (HRC); [place] [address] [facility] Non morbid obesity due to ex cess calories [phone] [phone] Social History Tobacco Use Types Packs/Day Years Used Date Smoking Tobacco: Former Cigarettes 0.3 15 Quit : 04/25/2015 Smokeless Tobacco: Never Alcohol Use Standard Drinks/Week Comments No 0 (1 standard drink = 0.6 oz pure alcoho l) rarely Sex Assigned at Date Recorded Female 05/09/2021 7:19 PM DIAPER MACHINE TENDER documented as of this encounter Last Filed [...] you are older than 45 and are -Latvian or have a father or brother who got prostatecancer when he was younger than 65. When should you call for help? Watch closely for changes in your health, and be sure to contact your doctor if you have any problems or symptoms that concern you. Where can you learn more? 1. Go to [employer]Response or [employer]. 2. Enter P072 in the search box. Current as of: January 11, 2016 Content Version: 11.2 ?? [id number] [employer] documented in this encounter Progress Notes Idania [...] Melanoma Trunk 11/01/2010 ??? 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 [...] friend. No children. 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 Preventive Health Assessment: Health [...] is negative. OBJECTIVE: Vital Signs: Filed Vitals: 06/22/17 1541 BP: (!) 140/84 Pulse: 82 Weight: [...] 09/15/2022 Telemedicine Gastroenterology Eusebio Haines MD [address] [place] [address] documented as of this encounter Results Lipid [...] - 01/22/2017 12:58 PM CDT Performed at [facility], [address] [place] [address] CLIA number [id number] Idania Andrade MD LAB_1 Performing Organization Address City/State/ZIP Code Phon e Number PN SOFT [address] [place] [address] documented in this encounter Visit Diagnoses Diagnosis [...] facility documented in this encounter Care Teams Esthetician/Owner Relationship Specialty Start Date End Date Sheeba Castillo, END USER SUPPORT SPECIALIST, COMPUTER SYSTEMS SOFTWARE ENGINEER PCP - General Nurse Practitioner 07/20/[address] [place] [address] documented as of this encounter
--- OUTSIDE RECORDS SUMMARY | 2022-05-09 19:25 | XMS_ITS | Encounter Summary ---
:1975 Author Organization [employer] Address [address], [place] [address] Care Team Providers Name Role Phone Sheeba Castillo APRN, QC SCIENTIST Primary Care Provider [phone] Reason for Visit Reason Comments CONSULT ulcerative rectosigmoiditis, C-diff Encounter Details Date Type Department Care Team Description 08/22/2016 Initial Consult [facility] Yimi Leigh Ulce rative pancolitis without complication (HRC) (Primary Dx); 6500 MD Enterocolitis due to Clostridium diffici le Gastroenterology [address] [facility] [address] [place] [address] [phone] Social History Tobacco Use Types Packs/Day Years Used Date Smoking Tobacco: Former Cigarettes 0.3 15 Quit : 04/25/2015 Smokeless Tobacco: Never Alcohol Use Standard Drinks/Week Comments No 0 (1 standard drink = 0.6 oz pure alcoho l) rarely Sex Assigned at Date Recorded Female 05/09/2021 7:19 PM ALMOND PAN FINISHER documented as of this encounter Last Filed Vital Signs Vital Sign Reading Time Taken Comments Blood Pressure 130/78 08/22/2016 4:01 PM ALMOND PAN FINISHER Pulse 96 08/22/2016 4:01 PM ALMOND PAN FINISHER Temperature - - Respiratory Rate 16 08/22/2016 4:01 PM ALMOND PAN FINISHER Oxygen Saturation - - Inhaled Oxygen Concentration - - Weight 90.1 kg (198 lb 9.6 oz) 08/22/2016 4:01 PM ALMOND PAN FINISHER Height 166.4 cm (5' 5.5) 08/22/2016 4:01 PM ALMOND PAN FINISHER Body Mass Index 32.55 08/22/2016 4:01 PM ALMOND PAN FINISHER documented in this encounter Patient Instructions Patient InstructionsYimi Leigh MD - 08/22/2016 5:18 PM CST 1- [...] week before your next GI clinic visit ND PAN FINISHER documented in this encounter Progress Notes Yimi Leigh MD - 08/23/2016 4:26 PM CST NAME: IGGY DUARTE MR#: [id number] CSN: [id number] AUTHENTICATING CLINICIAN: Yimi Leigh MD CONFIRM #: [id number] LOC: 3533 CLINIC PROGRESS NOTE DATE OF [...] continued to decline and was admitted to [facility] on . She was demonstrated to be [...] agents. PAST MEDICAL HISTORY: Patient profile in [facility] reviewed. MEDICATIONS: Patient profile in Epic reviewed. [...] [place] [address], and hemoglobin 11.8 with a platelet count [...] time 30 minutes. CC: RITA GARCIA [address] [facility] [address] [place] [address] MJS:MEDQ C: CONFIRM #: [id number] ND PAN FINISHER documented in this encounter Plan of Treatment Upcoming Encounters Date Type Specialty Care Team Description 05/12/2022 Hospital Encounter Chemo Therapy/Infusion Services 09/15/2022 Telemedicine Gastroenterology Eusebio Haines MD [address] [place] [address] documented as of this encounter Results Calprotectin Fecal (01/04/2017 5:14 AM CDT) P athologist Signature Calprotectin <16 <=50 ug/g PN SOFT Fecal Comment: INTERPRETIVE INFORMATION: Calprotectin, Fecal ??50 ug/g or less: Normal ??51-120 ug/g: Borderline elevated, carrie t should be ??re-evaluated in 4-6 weeks. ??121 ug/g or greater: Abnormal Performed by [facility], [address] [place] [id number] [email or web address], Romulo Pritchett MD - Lab . Director Specimen Anatomical Collection Method Collection Time Receive d Time (Source) Location / / Volume Laterality 01/04/2017 5:14 AM 7 8:57 CDT PM CDT Narrative PN SOFT - 01/06/2017 8:46 PM CDT Performed at [facility] [address] [place] [address] CLIA number [id number] Yimi Leigh MD LAB_1 Performing Organization Address City/State/ZIP Code Phon e Number PN SOFT [address] [place] [address] documented in this encounter Visit Diagnoses Diagnosis Ulcerative pancolitis without complicati on (HRC) - Primary Enterocolitis due to Clostridium diffici le Intestinal infection due to clostridium difficile Ulcerative pancolitis without complicati on (HRC) documented in this encounter Care Teams Oil And Gas Recruiter Relationship Specialty Start Date End Date Sheeba Castillo, LEATHER ROLLER, QC SCIENTIST PCP - General Nurse Practitioner 07/20/16 [address] [place] Dinh [phone] documented as of this encounter
--- OUTSIDE RECORDS SUMMARY | 2022-05-09 19:25 | XMS_ITS | Encounter Summary ---
:1975 Author Organization [employer] Address [address] [place] [address] Care Team Providers Name Role Phone Sheeba Castillo APRN, CNP Primary Care Provider [phone] Reason for Visit Reason Comments Eye Problem Consult/Transfer Care (Routine) - Closed Specialty Diagnoses / Procedures Referred By Contact Refer red To Contact Diagnoses Ulcerative rectosigmoiditis with rectal bleeding (HRC) Eye redness Eileen Bernabe, LOG ROLLER, CATTLE STICKER [address] [place] [address] Referral ID Status Reason Start Date Expiration Date Visits Requ ested Visits Authorized [id number] Closed 08/14/2016 11/13/2017 1 1 Encounter Details Date Type Department Care Team Description 08/15/2016 Office Visit Serafin Galvan, Trichiasis of eyelid, left (Primary Dx); Ophthalmology OD Conjunctival hemorrhage of left eye [address] [place] [address] [facility] [phone] [place] [address] Social History Tobacco Use Types Packs/Day Years Used Date Smoking Tobacco: Former Cigarettes 0.3 15 Quit : 04/25/2015 Smokeless Tobacco: Never Alcohol Use Standard Drinks/Week Comments Yes 0 (1 standard drink = 0.6 oz pure alcoho l) rarely Sex Assigned at Date Recorded Female 05/09/2021 7:19 PM PUMP AND STILL OPERATOR documented as of this encounter Progress [...] days. 3. Return to clinic as needed. AND STILL OPERATOR documented in this encounter Plan of Treatment Upcoming Encounters Date Type Specialty Care Team Description 05/12/2022 Hospital Encounter Chemo Therapy/Infusion Services 09/15/2022 Telemedicine Gastroenterology Eusebio Haines MD [address] [place], [place] [address] Scheduled Referrals Name Type Priority Associated Diagnoses Order S chedule Ophthalmology Referral Routine Ulcerative Ordered: Consult-Adult/Peds rectosigmoiditis with 08/14/2016 rectal bleeding (HRC) Eye redness documented as of this encounter Visit Diagnoses Diagnosis Trichiasis of eyelid, left - Primary Conjunctival hemorrhage of left eye Conjunctival hemorrhage documented in this encounter Care Teams Tromper Relationship Specialty Start Date End Date Sheeba Castillo, LOG ROLLER, CATTLE STICKER PCP - General Nurse Practitioner 07/20/16 [address] [place] [id number] documented as of this encounter
--- OUTSIDE RECORDS SUMMARY | 2022-05-09 19:25 | XMS_ITS | Encounter Summary ---
:1975 Author Organization [employer] Address [address] [place] [address] Care Team Providers Name Role Phone Sheeba Castillo APRN, SIERRA Primary Care Provider [phone] Reason for Visit Reason Comments Refill Phentermine HCl 37.5 MG caps ule [Pharmacy Med Name: PHENTERMINE HCL 37.5MG CAPS] Encounter Details Date Type Department Care Team Description 03/01/2017 Refill [facility] Iggy Hernandez MD Refill (Phentermine HCl [address] Reyna 37.5 MG capsule [address] [place], [place] [Pharmacy Med Name: [place] [address] PHENTERMINE HCL 37.5MG [phone] (Wo rk) CAPS]) Social History Tobacco Use Types Packs/Day Years Used Date Smoking Tobacco: Former Cigarettes 0.3 15 Quit : 04/25/2015 Smokeless Tobacco: Never Alcohol Use Standard Drinks/Week Comments Yes 0 (1 standard drink = 0.6 oz pure alcoho l) rarely Sex Assigned at Date Recorded Female 05/09/2021 7:19 PM BAKING POWDER MIXER documented as of this encounter Nursing Notes [...] HERNANDEZ) Next scheduled visit: None Powered by [employer], Reference: [id number], 03/01/2017 5:35:02 AM CDT, Pool: DEANDRA FP REFILL ([id number]) Interface, Out Health As We Age Prov Query - 03/01/2017 5:35 AM CDT No Careplan note found by [employer]. documented in this encounter Plan of Treatment Upcoming Encounters Date Type Specialty Care Team Description 05/12/2022 Hospital Encounter Chemo Therapy/Infusion Services 09/15/2022 Telemedicine Gastroenterology Eusebio Haines MD [address] [place], [place] [address] documented as of this encounter Visit Diagnoses Not on filedocumented in this encounter Care Teams Matrix Bath Operator Relationship Specialty Start Date End Date Sheeba Castillo, PRINCIPAL JAVA SOFTWARE ENGINEER, FISHERIES MANAGER PCP - General Nurse Practitioner 07/20/16 [address] [place] Dinh [phone] documented as of this encounter
--- OUTSIDE RECORDS SUMMARY | 2022-05-09 19:25 | XMS_ITS | Encounter Summary ---
:1975 Author Organization [employer] Address [address] [place] [address] Care Team Providers Name Role Phone Sheeba Castillo APRN, SIERRA Primary Care Provider [phone] Reason for Visit Reason Onset Date Comments Labs Needed 01/17/2017 Encounter Details Date Type Department Care Team Description 01/17/2017 Telephone [facility] Sheeba Roca, INVESTMENTS MANAGER, Labs Needed [address] [place] [address] [place] [phone] [place], [place] [address] (Wo rk) Social History Tobacco Use Types Packs/Day Years Used Date Smoking Tobacco: Former Cigarettes 0.3 15 Quit : 04/25/2015 Smokeless Tobacco: Never Alcohol Use Standard Drinks/Week Comments Yes 0 (1 standard drink = 0.6 oz pure alcoho l) rarely Sex Assigned at Date Recorded Female 05/09/2021 7:19 PM COVERSTITCH ELASTIC ATTACHER documented as of this encounter Nursing Notes Vickie Carey LPN - 01/17/2017 9:26 AM CDT Expiration Date for overdue lab test(s) extended by 14 days on 01/17/2017. Patient advised to complete testing. Called and left message for patient to call clinic back. clinic phone number given. documented in this encounter Plan of Treatment Upcoming Encounters Date Type Specialty Care Team Description 05/12/2022 Hospital Encounter Chemo Therapy/Infusion Services 09/15/2022 Telemedicine Gastroenterology Eusebio Haines MD [address] [place] [address] documented as of this encounter Visit Diagnoses Not on filedocumented in this encounter Care Teams Policy Writer Sales Relationship Specialty Start Date End Date Sheeba Castillo, INVESTMENTS MANAGER, CREPE MACHINE OPERATOR PCP - General Nurse Practitioner 07/20/[address] [place] [address] documented as of this encounter
--- OUTSIDE RECORDS SUMMARY | 2022-05-09 19:25 | XMS_ITS | Encounter Summary ---
:1975 Author Organization [employer] Address [address], [place] [address] Care Team Providers Name Role Phone Sheeba Castillo APRN, SIERRA Primary Care Provider [phone] Reason for Visit Reason Comments Hospital Discharge Follow-up Encounter Details Date Type Department Care Team Description 08/04/2016 Office Visit [facility] Idania Ulcerativ e rectosigmoiditis with rectal bleeding (HRC) (Primary Dx); Pietro Barriga MD C. difficile colitis; [address] [place] [address] MAGDALENA LEPE [phone] Social History Tobacco Use Types Packs/Day Years Used Date Smoking Tobacco: Former Cigarettes 0.3 15 Quit : 04/25/2015 Smokeless Tobacco: Never Alcohol Use Standard Drinks/Week Comments Yes 0 (1 standard drink = 0.6 oz pure alcoho l) rarely Sex Assigned at Date Recorded Female 05/09/2021 7:19 PM MERCHANDISE SUPERVISOR documented as of this encounter Last Filed Vital Signs Vital Sign Reading Time Taken Comments Blood Pressure 117/85 08/04/2016 1:40 PM MERCHANDISE SUPERVISOR Pulse 107 08/04/2016 1:40 PM MERCHANDISE SUPERVISOR Temperature 37 ??C (98.6 ??F) 08/04/2016 1:40 PM MERCHANDISE SUPERVISOR Respiratory Rate - - Oxygen Saturation - - Inhaled Oxygen Concentration - - Weight 86.2 kg (190 lb) 08/04/2016 1:40 PM MERCHANDISE SUPERVISOR Height - - Body Mass Index 30.44 07/17/2016 9:10 AM MERCHANDISE SUPERVISOR documented in this encounter Progress Notes Idania Andrade MD - 08/04/2016 2:00 PM CST CLINIC VISIT NOTE SUBJECTIVE: Patient is a 41 y.o. female here today for She was hospitalized at [facility] July 25 through July 30 for ulcerative [...] voice recognition dictation. Typoraphical errors may result. 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 difficile colitis Intestinal infection due to clostridium difficile Essential hypertension (HRC) Unspecified essential hypertension documented in this encounter Care Teams Hydrochloric Acid Operator Relationship Specialty Start Date End Date Sheeba Castillo, RENTAL SALES REPRESENTATIVE, INVESTOR RELATIONS COORDINATOR PCP - General Nurse Practitioner 07/20/16 [address] [place] [address] documented as of this encounter
--- OUTSIDE RECORDS SUMMARY | 2022-05-09 19:25 | XMS_ITS | Encounter Summary ---
:1975 Author Organization [employer] Address [address], [place] [address] Care Team Providers Name Role Phone Sheeba Castillo APRN, CNP Primary Care Provider [phone] Reason for Visit Reason Onset Date Comments APPOINTMENT REQUEST 07/30/2016 Encounter Details Date Type Department Care Team Description 07/30/2016 Telephone [facility] [address] Faye Felton A PPOINTMENT REQUEST Gastroenterology RUDY, SIERRA [address] [place], [place] Rick 4-120 [address] [place], [place] [phone] (Wo rk) Social History Tobacco Use Types Packs/Day Years Used Date Smoking Tobacco: Former Cigarettes 0.3 15 Quit : 04/25/2015 Smokeless Tobacco: Never Alcohol Use Standard Drinks/Week Comments Yes 0 (1 standard drink = 0.6 oz pure alcoho l) rarely Sex Assigned at Date Recorded Female 05/09/2021 7:19 PM PAPER PATTERN FOLDER documented as of this encounter Nursing Notes Beth Nichols RN - 07/31/2016 8:54 AM CST Pt notified and verbalized understanding of below. Appointment made for 08/14/16 with Eileen Bernabe. Pt to call back if any further questions or concerns. R PATTERN FOLDER Faye Hinojosa APRN, CNP - 07/30/2016 10:44 AM CST Patient discharging from hospital today. Needs GI clinic follow up in [address] Mcmanus if he has any post hospital slots left, or Aftab Bernabe in [facility], or me in IBD clinic. Dx: Ulcerative colitis, Cdiff colitis R PATTERN FOLDER documented in this encounter Plan of Treatment Upcoming Encounters Date Type Specialty Care Team Description 05/12/2022 Hospital Encounter Chemo Therapy/Infusion Services 09/15/2022 Telemedicine Gastroenterology Eusebio Haines MD [address] [place], [place] [address] documented as of this encounter Visit Diagnoses Not on filedocumented in this encounter Care Teams Shearer Screen Measurer And Trimmer Relationship Specialty Start Date End Date Sheeba Castillo APRN, DRAWING INSTRUCTOR PCP - General Nurse Practitioner 07/20/16 [address] [place] [id number] documented as of this encounter
--- OUTSIDE RECORDS SUMMARY | 2022-05-09 19:25 | XMS_ITS | Encounter Summary ---
:1975 Author Organization [employer] Address [address], [place] [address] Care Team Providers Name Role Phone Sheeba Castillo APRN, SIERRA Primary Care Provider [phone] Encounter Details Date Type Department Care Team Description 10/12/2016 Lab Visit [facility] Ulcerative (chronic) [address] [facility] proctitis, [place] [address] complications [phone] Social History Tobacco Use Types Packs/Day Years Used Date Smoking Tobacco: Former Cigarettes 0.3 15 Quit : 04/25/2015 Smokeless Tobacco: Never Alcohol Use Standard Drinks/Week Comments No 0 (1 standard drink = 0.6 oz pure alcoho l) rarely Sex Assigned at Date Recorded Female 05/09/2021 7:19 PM PAD EXTRACTION TENDER documented as of this encounter Plan of Treatment Upcoming Encounters Date Type Specialty Care Team Description 05/12/2022 Hospital Encounter Chemo Therapy/Infusion Services 09/15/2022 Telemedicine Gastroenterology Eusebio Haines MD [address] [place], [place] [address] documented as of this encounter Procedures Procedure Name Priority Date/Time Associated Diagnosis Comme nts COMPLETE BLOOD Routine 10/12/2016 4:26 PM Ulcerative (chronic) Results for this COUNT-NO DIFF CDT proctitis, without procedur e are in complications the results section. C-REACTIVE PROTEIN Routine 10/12/2016 4:26 PM Ulcerative (chrome tanning drum operator robinson) Results for this CDT proctitis, without [...] - 10/12/2016 10:04 PM CDT Performed at [facility] [address] [place] [address] CLIA number [id number] Faye Felton APRN, CNP LAB_1 Performing Organization Address [facility] Phon e Number PN SOFT [address] [place] [address] Sedimentation Rate (10/12/2016 4:26 PM CDT) Analysis Performed At [facility] Signature Sedimentation Rate 18 0 - 20 PN SOFT mm/hr Specimen Anatomical Collection Method Collection Time Receive d Time (Source) Location / / Volume Laterality 10/12/2016 4:26 PM 7 4:26 CDT PM CDT Narrative PN SOFT - 10/12/2016 5:04 PM CDT Performed at [facility], [address] [place] [address] CLIA number [id number] Faye Felton APRN, CNP LAB_1 Performing Organization Address [facility] Phon e Number PN SOFT [address] [place] [address] (ABNORMAL) C Reactive Protein (10/12/2016 4:26 PM CDT) athologist Signature CRP 1.6 (H) 0.0 - 0.5 PN SOFT mg/dL Specimen Anatomical Collection Method Collection Time Receive d Time (Source) Location / / Volume Laterality 10/12/2016 4:26 PM 7 4:26 CDT PM CDT Narrative PN SOFT - 10/12/2016 4:47 PM CDT Performed at [facility], [facility] [place] [address] [place] [address] CLIA number [id number] Faye Felton APRN, CNP LAB_1 Performing Organization Address [facility] Phon e Number PN SOFT [address] [place], [place] [address] CBC - Complete Blood Count No Diff [...] - 10/12/2016 4:30 PM CDT Performed at [facility], [facility] [place] [address] [place] [address] CLIA number [id number] Faye Felton APRN, CNP LAB_1 Performing Organization Address 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
--- OUTSIDE RECORDS SUMMARY | 2022-05-09 19:25 | XMS_ITS | Encounter Summary ---
:1975 Author Organization [employer] Address [address] [place] [address] Care Team Providers Name Role Phone Sheeba Castillo APRN, SIERRA Primary Care Provider [phone] Encounter Details Date Type Department Care Team Description 01/22/2017 Lab Visit [facility] Well adult exam [address] [place], [place] [address] Social History Tobacco Use Types Packs/Day Years Used Date Smoking Tobacco: Former Cigarettes 0.3 15 Quit : 04/25/2015 Smokeless Tobacco: Never Alcohol Use Standard Drinks/Week Comments Yes 0 (1 standard drink = 0.6 oz pure alcoho l) rarely Sex Assigned at Date Recorded Female 05/09/2021 7:19 PM STREETCAR DISPATCHER documented as of this encounter Plan of Treatment Upcoming Encounters Date Type Specialty Care Team Description 05/12/2022 Hospital Encounter Chemo Therapy/Infusion Services 09/15/2022 Telemedicine Gastroenterology Eusebio Haines MD [address] [place], [place] [address] documented as of this encounter Procedures Procedure [...] - 01/22/2017 12:58 PM CDT Performed at [facility], [address] [place] [address] CLIA number [id number] Idania Andrade MD LAB_1 Performing Organization Address City/State/ZIP Code Phon e Number PN SOFT [address] [place] [address] documented in this encounter Visit Diagnoses Diagnosis Well adult exam Routine general medical examination at a health care facility documented in this encounter Care Teams Middle School English Teacher Relationship Specialty Start Date End Date Sheeba Castillo APRN, SQUASH CENTRE MANAGER PCP - General Nurse Practitioner 07/20/[address] [place] [address] documented as of this encounter
--- OUTSIDE RECORDS SUMMARY | 2022-05-09 19:25 | XMS_ITS | Encounter Summary ---
:1975 Author Organization [employer] Address [address] [place] [address] Care Team Providers Name Role Phone Sheeba Castillo APRN, SIERRA Primary Care Provider [phone] Encounter Details Date Type Department Care Team Description 01/03/2017 Lab Visit [facility] Ulcerative colitis with [address] complication, [place] [address] location ([facility]) [phone] Social History Tobacco Use Types Packs/Day Years Used Date Smoking Tobacco: Former Cigarettes 0.3 15 Quit : 04/25/2015 Smokeless Tobacco: Never Alcohol Use Standard Drinks/Week Comments No 0 (1 standard drink = 0.6 oz pure alcoho l) rarely Sex Assigned at Date Recorded Female 05/09/2021 7:19 PM ENTRY LEVEL WEB DEVELOPER documented as of this encounter Plan of Treatment Upcoming Encounters Date Type Specialty Care Team Description 05/12/2022 Hospital Encounter Chemo Therapy/Infusion Services 09/15/2022 Telemedicine Gastroenterology Eusebio Haines MD [address] [place] [address] documented as of this encounter Procedures Procedure Name Priority Date/Time Associated Diagnosis Comme nts COMPLETE BLOOD Routine 01/03/2017 3:42 PM Ulcerative colitis R esults for this COUNT-NO DIFF CDT with complication, procedur e are in unspecified location the res ults (HR) section. C-REACTIVE PROTEIN Routine 01/03/2017 3:42 PM [...] - 01/03/2017 4:51 PM [place] [address] CLIA number [id number] Faye Felton APRN, QUEBRACHO TANNER LAB_1 Performing Organization Address [facility] Phon e Number PN SOFT [address] [place] [address] (ABNORMAL) C Reactive Protein (01/03/2017 3:42 PM CDT) athologist Signature CRP 1.7 (H) 0.0 - 0.5 PN SOFT mg/dL Specimen Anatomical Collection Method Collection Time Receive d Time (Source) Location / / Volume Laterality 01/03/2017 3:42 PM 7 3:42 CDT PM CDT Narrative PN SOFT - 01/03/2017 4:30 PM [place] [address] CLIA number [id number] Faye Felton APRN, QUEBRACHO TANNER LAB_1 Performing Organization Address [facility] Phon e Number PN SOFT [address] [place] [address] CBC - Complete Blood Count No Diff (01/03/2017 3:42 PM CDT) athologist Signature White Blood Cell 8.1 3.8 [...] [facility], [address] [place] [address] CLIA number [id number] Faye Felton APRN, CNP LAB_1 Performing Organization Address City/State/ZIP Code Phon e Number PN SOFT [address] [place] [address] documented in this encounter Visit Diagnoses Diagnosis Ulcerative colitis with complication, un specified location (HRC) documented in this encounter Care Teams Manager Of Manufacturing Relationship Specialty Start Date End Date Sheeba Castillo APRN, SIERRA PCP - General Nurse Practitioner 07/20/16 [address] [place] [address] documented as of this encounter
--- OUTSIDE RECORDS SUMMARY | 2022-05-09 19:25 | XMS_ITS | Encounter Summary ---
:1975 Author Organization [employer] Address [address] [place] [address] Care Team Providers Name Role Phone Sheeba Castillo APRN, CNP Primary Care Provider [phone] Reason for Visit Reason Comments Follow-up IBD Encounter Details Date Type Department Care Team Description 10/12/2016 Office Visit Yolie FeltonFaye, Ulcerative (chronic) proctitis, without complications (Primary Dx); Gastroenterology [facility] Enterocolitis due to Clostridium diffici le; [address] Irritable bowel syndrome, [place] [address] [facility] [address] [place] [address] (Wo rk) Social History Tobacco Use Types Packs/Day Years Used Date Smoking Tobacco: Former Cigarettes 0.3 15 Quit : 04/25/2015 Smokeless Tobacco: Never Alcohol Use Standard Drinks/Week Comments No 0 (1 standard drink = 0.6 oz pure alcoho l) rarely Sex Assigned at Date Recorded Female 05/09/2021 7:19 PM BARBER INSTRUCTOR documented as of this encounter Last Filed [...] IBD Patient: Idania Duarte : 1975 MR#: [id number] CSN#: [id number] Date of Visit: 10/12/2016 Reason for visit: [...] continued to decline and was admitted to [facility] on July 25.?? She was demonstrated to [...] Services 09/15/2022 Telemedicine Gastroenterology Eusebio Haines MD [address] [place] [id number] documented as of this encounter Results TSH with Free T4 (if TSH Abnormal) (10/12/2016 4:26 PM CDT) athologist Signature Thyroid 1.32 0.30 - PN SOFT Stimulating 4.50 Hormone uIU/mL Specimen Anatomical Collection Method Collection Time Receive d Time (Source) Location / / Volume Laterality 10/12/2016 4:26 PM 7 9:19 CDT PM CDT Narrative PN SOFT - 10/12/2016 10:04 PM CDT Performed at [facility], [address] [place] [address] CLIA number [id number] Faye Felton APRN, CNP LAB_1 Performing Organization Address City/State/ZIP Code Phon e Number PN SOFT [address] [place] [address] Sedimentation Rate (10/12/2016 4:26 PM CDT) Analysis Performed At Patho logist Time Signature Sedimentation Rate 18 0 - 20 PN SOFT mm/hr Specimen Anatomical Collection Method Collection Time Receive d Time (Source) Location / / Volume Laterality 10/12/2016 4:26 PM 7 4:26 CDT PM CDT Narrative PN SOFT - 10/12/2016 5:04 PM CDT Performed at [facility], [address] [place] [address] CLIA number [id number] Faye Felton APRN, CNP LAB_1 Performing Organization Address [facility] e Number PN SOFT [address] [place] [address] (ABNORMAL) C Reactive Protein (10/12/2016 4:26 PM CDT) athologist Signature CRP 1.6 (H) 0.0 - 0.5 PN SOFT mg/dL Specimen Anatomical Collection Method Collection Time Receive d Time (Source) Location / / Volume Laterality 10/12/2016 4:26 PM 7 4:26 CDT PM CDT Narrative PN SOFT - 10/12/2016 4:47 PM CDT Performed at [facility], [facility] [address] [place] [address] CLIA number [id number] Faye Felton APRN, CNP LAB_1 Performing Organization Address [facility] Phon e Number PN SOFT [address] [place] [address] CBC - Complete Blood Count No Diff (10/12/2016 4:26 PM CDT) P athologist Signature White Blood Cell 7.1 3.8 [...] - 10/12/2016 4:30 PM CDT Performed at [facility], [address] [place] [address] CLIA number [id number] Faye Felton APRN, CNP LAB_1 Performing Organization Address City/State/ZIP Code Phon e Number PN SOFT [address] [place] [address] documented in this encounter Visit Diagnoses Diagnosis Ulcerative (chronic) proctitis, 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
--- OUTSIDE RECORDS SUMMARY | 2022-05-09 19:25 | XMS_ITS | Encounter Summary ---
:1975 Author Organization [facility] Address [address] [place] [address] Care Team Providers Name Role Phone Sheeba Castillo APRN, CNP Primary Care Provider [phone] Encounter Details Date Type Department Care Team Description 03/26/2017 Immunization [facility] 3931 Need f or prophylactic [facility] against [place], [place] za 601296 Social History Tobacco Use Types Packs/Day Years Used Date Smoking Tobacco: Former Cigarettes 0.3 15 Quit : 04/25/2015 Smokeless Tobacco: Never Alcohol Use Standard Drinks/Week Comments Yes 0 (1 standard drink = 0.6 oz pure alcoho l) rarely Sex Assigned at Date Recorded Female 05/09/2021 7:19 PM WEED ERADICATOR documented as of this encounter Plan of Treatment Upcoming Encounters Date Type Specialty Care Team Description 05/12/2022 Hospital Encounter Chemo Therapy/Infusion Services 09/15/2022 Telemedicine Gastroenterology Eusebio Haines MD [address] [place] [address] documented as of this encounter Visit Diagnoses Diagnosis Need for prophylactic vaccination and in oculation against influenza documented in this encounter Care Teams Veneer Matcher Relationship Specialty Start Date End Date Sheeba Castillo APRN, MEDICAL FRONT DESK COORDINATOR PCP - General Nurse Practitioner 07/20/16 [address] [place] [address] documented as of this encounter
--- OUTSIDE RECORDS SUMMARY | 2022-05-09 19:25 | XMS_ITS | Encounter Summary ---
:1975 Author Organization [employer] Address [address] [place] [address] Care Team Providers Name Role Phone Sheeba Castillo APRN, SIERRA Primary Care Provider [phone] Encounter Details Date Type Department Care Team Description 08/14/2016 Lab Visit [facility] Ulcerative rectosigmoiditis with rectal bleeding (HRC); [address] [place], [place] [address] Social History Tobacco Use Types Packs/Day Years Used Date Smoking Tobacco: Former Cigarettes 0.3 15 Quit : 04/25/2015 Smokeless Tobacco: Never Alcohol Use Standard Drinks/Week Comments Yes 0 (1 standard drink = 0.6 oz pure alcoho l) rarely Sex Assigned at Date Recorded Female 05/09/2021 7:19 PM LIBRARY SUPERVISOR documented as of this encounter Plan of Treatment Upcoming Encounters Date Type Specialty Care Team Description 05/12/2022 Hospital Encounter Chemo Therapy/Infusion Services 09/15/2022 Telemedicine Gastroenterology Eusebio Haines MD [address] [place], [place] [address] documented as of this encounter Procedures Procedure Name Priority Date/Time Associated Diagnosis Comme nts CREATININE / GFR Routine 08/14/2016 4:41 Ulcerative Results for this PM LIBRARY SUPERVISOR rectosigmoiditis with proced ure are in rectal bleeding (HRC) the re sults section. C-REACTIVE PROTEIN Routine 08/14/2016 4:41 Ulcerative Result s for this PM LIBRARY SUPERVISOR rectosigmoiditis with proced ure are in rectal bleeding (HRC) the results Eye redness section. SODIUM Routine 08/14/2016 4:41 Ulcerative Results for this PM LIBRARY SUPERVISOR rectosigmoiditis with proced ure are in rectal bleeding (HRC) the re sults section. POTASSIUM Routine 08/14/2016 4:41 Ulcerative Results for this PM LIBRARY SUPERVISOR rectosigmoiditis with proced ure are in rectal bleeding (HRC) the re sults section. documented in this encounter Results (ABNORMAL) C Reactive Protein (08/14/2016 4:41 PM LIBRARY SUPERVISOR) athologist Signature CRP 0.6 (H) 0.0 - 0.5 PN SOFT mg/dL Specimen Anatomical Collection Method Collection Time Receive d Time (Source) Location / / Volume Laterality 08/14/2016 4:41 PM 7 4:41 LIBRARY SUPERVISOR PM LIBRARY SUPERVISOR Narrative PN SOFT - 08/14/2016 5:06 PM LIBRARY SUPERVISOR Performed at [facility], [facility] [address] [place] [address] CLIA number [id number] Eileen Bernabe WOOL BATTING WORKER, OPERATIONS SPECIALISTS LAB_1 Performing Organization Address City/State/ZIP Code Phon e Number PN SOFT [address] [place] [address] [phone] Creatinine (08/14/2016 4:41 PM LIBRARY SUPERVISOR) athologist Signature Creatinine Serum 0.60 0.55 [...] Volume Laterality 08/14/2016 4:41 PM 7 4:41 LIBRARY SUPERVISOR PM LIBRARY SUPERVISOR Narrative PN SOFT - 08/14/2016 5:06 PM LIBRARY SUPERVISOR Performed at [facility], [address] [place] [address] CLIA number [id number] Eileen Bernabe APRN, CNP LAB_1 Performing Organization Address [facility] Phon e Number PN SOFT [address] [place] [address] [phone] Potassium (08/14/2016 4:41 PM LIBRARY SUPERVISOR) athologist Signature Potassium 3.7 3.5 - 5.2 PN SOFT mmol/L Specimen Anatomical Collection Method Collection Time Receive d Time (Source) Location / / Volume Laterality 08/14/2016 4:41 PM 7 4:41 LIBRARY SUPERVISOR PM LIBRARY SUPERVISOR Narrative PN SOFT - 08/14/2016 5:06 PM LIBRARY SUPERVISOR Performed at [facility], [facility] [address] [place] [address] CLIA number [id number] Eileen Bernabe APRN, CNP LAB_1 Performing Organization Address [facility] Phon e Number PN SOFT [address] [place] [address] Sodium (08/14/2016 4:41 PM LIBRARY SUPERVISOR) athologist Signature Sodium 138 136 - 145 PN SOFT mmol/L Specimen Anatomical Collection Method Collection Time Receive d Time (Source) Location / / Volume Laterality 08/14/2016 4:41 PM 7 4:41 LIBRARY SUPERVISOR PM LIBRARY SUPERVISOR Narrative PN SOFT - 08/14/2016 5:06 PM LIBRARY SUPERVISOR Performed at [facility], [address] [place] [address] CLIA number [id number] Eileen Bernabe APRN, CNP LAB_1 Performing Organization Address [facility] Phon e Number PN SOFT [address] [place] [address] documented in this encounter Visit Diagnoses Diagnosis Ulcerative rectosigmoiditis with rectal bleeding (HRC) Eye redness Redness or discharge of eye documented in this encounter Care Teams Construction Project Administrator Relationship Specialty Start Date End Date Sheeba Castillo, RUDY, OPERATIONS SPECIALISTS PCP - General Nurse Practitioner 07/20/[address] [place] [address] [place] Dinh [address] documented as of this encounter
--- OUTSIDE RECORDS SUMMARY | 2022-05-09 19:26 | XMS_ITS | Encounter Summary ---
:1975 Author Organization [employer] Address [address] [place] [address] Care Team Providers Name Role Phone Sheeba Castillo APRN, SHEETMETAL WORKER Primary Care Provider [phone] Reason for Visit Reason Onset Date Comments Symptoms 07/12/2016 Encounter Details Date Type Department Care Team Description 07/12/2016 Telephone [place] [facility] Eileen Bernabe, TRAUMA REGISTRAR, Symptoms [address] [place] [address] [place] [phone] [place], [place] [address] (Wo rk) Social History Tobacco Use Types Packs/Day Years Used Date Smoking Tobacco: Former Cigarettes 0.3 15 Quit : 04/25/2015 Smokeless Tobacco: Never Alcohol Use Standard Drinks/Week Comments Yes 0 (1 standard drink = 0.6 oz pure alcoho l) rarely Sex Assigned at Date Recorded Female 05/09/2021 7:19 PM CASINO DUTY MANAGER documented as of this encounter Nursing [...] Encouraged to call with return of symptoms. NO DUTY MANAGER Eileen Bernabe APRN, CNP - 07/12/2016 4:50 PM CST Please call patient: surgeon doing cholecystectomy called and with info he gave me, I wonder if she is having a colitis flare. Get her symptoms, if she can sort them from the post op discomfort. We might need a CT. NO DUTY MANAGER documented in this encounter Plan of Treatment Upcoming Encounters Date Type Specialty Care Team Description 05/12/2022 Hospital Encounter Chemo Therapy/Infusion Services 09/15/2022 Telemedicine Gastroenterology Eusebio Haines MD [address] [place], [place] [address] documented as of this encounter Visit Diagnoses Not on filedocumented in this encounter Care Teams Patcher Relationship Specialty Start Date End Date Sheeba Castillo APRN, SHEETMETAL WORKER PCP - General Nurse Practitioner 07/20/16 [address] [place] MAGDALENA Dinh [id number] documented as of this encounter
--- OUTSIDE RECORDS SUMMARY | 2022-05-09 19:26 | XMS_ITS | Encounter Summary ---
:1975 Author Organization [facility] Address [address] [place] [address] Care Team Providers Name Role Phone Sheeba Castillo APRN, COMMUNITY RELATIONS SPECIALIST Primary Care Provider [phone] Reason for Visit Reason Comments ERRONEOUS ENTRY Encounter Details Date Type Department Care Team Description 07/16/2016 Telephone Careline Unassigned, Provider ERRONEOUS ENTRY [address] [place], [place] [address] [place] [address] Social History Tobacco Use Types Packs/Day Years Used Date Smoking Tobacco: Former Cigarettes 0.3 15 Quit : 04/25/2015 Smokeless Tobacco: Never Alcohol Use Standard Drinks/Week Comments Yes 0 (1 standard drink = 0.6 oz pure alcoho l) rarely Sex Assigned at Date Recorded Female 05/09/2021 7:19 PM NURSE SUPERVISOR documented as of this encounter Nursing Notes Miguelangel Marley - 07/16/2016 6:49 PM CST Pt transferred to Appointment Center E SUPERVISOR documented in this encounter Plan of Treatment Upcoming Encounters Date Type Specialty Care Team Description 05/12/2022 Hospital Encounter Chemo Therapy/Infusion Services 09/15/2022 Telemedicine Gastroenterology Eusebio Haines MD [address] [place], [place] [address] documented as of this encounter Visit Diagnoses Not on filedocumented in this encounter Care Teams Surgical First Assistant Relationship Specialty Start Date End Date Sheeba Castillo, SOIL TECHNOLOGIST, COMMUNITY RELATIONS SPECIALIST PCP - General Nurse Practitioner 07/13/16 07/17/16 [address] [place] MAGD[place] Dinh [address] documented as of this encounter
--- OUTSIDE RECORDS SUMMARY | 2022-05-09 19:26 | XMS_ITS | Encounter Summary ---
:1975 Author Organization [employer] Address [address] [place] [address] Care Team Providers Name Role Phone Fernanda Lancaster PA-C Primary Care Provider Reason for Visit Reason Comments Follow-up, NOS Encounter Details Date Type Department Care Team Description 07/18/2016 Telephone [facility] Lolly Lancaster PA-C Follow-up, NOS Practice [address] [facility] [address] [place] [address] [place], [place] [address] [phone] Social History Tobacco Use Types Packs/Day Years Used Date Smoking Tobacco: Former Cigarettes 0.3 15 Quit : 04/25/2015 Smokeless Tobacco: Never Alcohol Use Standard Drinks/Week Comments Yes 0 (1 standard drink = 0.6 oz pure alcoho l) rarely Sex Assigned at Date Recorded Female 05/09/2021 7:19 PM GUARD IMMIGRATION documented as of this encounter Nursing Notes [...] today Fernanda Lancaster PA-C 07/18/2016, 4:53 PM D IMMIGRATION Elvi Tubbs - 07/18/2016 3:59 PM CST What is your question?: Patient was seen yesterday and given promethazine (PHENERGAN) and this morning she has been vomiting about 4-5 times and has the diarrhea and is having bad stomach cramps. When did you last see your provider for this?: 07/17 If a prescription is needed, would you like it filled at our clinic pharmacy? [Utilization Management Manager/Appt Center: Was the pharmacy entered into the Preferred Pharmacy field? Yes Is it okay to leave a detailed message on your voicemail?:Yes [Utilization Management Manager/Appt Center: If this call is after 3 p.m., communicate to patient: If we are not able to get back to you by the end of the day and your symptoms worsen please contact the Careline at [phone] OR at .] Is there anything else I can help you with today? No Elvi Tubbs 07/18/2016, 3:59 PM D IMMIGRATION documented in this encounter Plan of Treatment Upcoming Encounters Date Type Specialty Care Team Description 05/12/2022 Hospital Encounter Chemo Therapy/Infusion Services 09/15/2022 Telemedicine Gastroenterology Eusebio Haines MD [address] [place], [place] [address] documented as of this encounter Visit Diagnoses Not on filedocumented in this encounter Care Teams Policy Issue Clerk Relationship Specialty Start Date End Date Fernanda Lancaster PA-C PCP - General Physician Cement Sack Breaker 07/18/16 07/19/16 [address] [place] [address] documented as of this encounter
--- OUTSIDE RECORDS SUMMARY | 2022-05-09 19:26 | XMS_ITS | Encounter Summary ---
:1975 Author Organization [employer] Address [address] [place] [address] Care Team Providers Name Role Phone Sheeba Castillo APRN, BESSEMER REGULATOR Primary Care Provider [phone] Reason for Visit Reason Comments STOOL, BLOODY Encounter Details Date Type Department Care Team Description 07/23/2016 Nurse Triage Careline Unassigned, Provider STOOL, BLOODY [address] [place], [place] [address] [place], [place] [phone] Social History Tobacco Use Types Packs/Day Years Used Date Smoking Tobacco: Former Cigarettes 0.3 15 Quit : 04/25/2015 Smokeless Tobacco: Never Alcohol Use Standard Drinks/Week Comments Yes 0 (1 standard drink = 0.6 oz pure alcoho l) rarely Sex Assigned at Date Recorded Female 05/09/2021 7:19 PM MUSIC BOX MECHANIC documented as of this encounter Nursing Notes Sindy Lozano, RN - 07/23/2016 9:04 AM CST Protocol: ABDOMINAL PAIN - [id number] Affirmative: Blood in bowel movements (Exception: blood on surface of BM with constipation) Disposition of Go To ED Now suggested. C BOX MECHANIC Sindy Lozano RN - 07/23/2016 8:59 AM CST Caller transferred for triage by Careline Souvenir Assembler . Verified and full name. Yes Situation/Background [...] to GI tomorrow - Dr Vasquez at [facility] . Had gallbladder removed 07/12/15 . Reviewed with patient pertinent medical history(as it related to the call): Yes Reviewed with patient pertinent medications (as they relate to call): Yes She is concerned as starts a new job tomorrow , will discuss with ER provider and get documentation if unable to work . C BOX MECHANIC Karina Flores - 07/23/2016 8:55 AM CST Which care system or clinic is the patient normally seen at? [facility]. Situation: Medical: sick since she got out her gallbladder 07/12, now she has colitis on was given predisone on , now she has cramps and bloody diarrhea and in pain: Plan:Call transferred directly to CareLine nurse. C BOX MECHANIC documented in this encounter Plan of Treatment Upcoming Encounters Date Type Specialty Care Team Description 05/12/2022 Hospital Encounter Chemo Therapy/Infusion Services 09/15/2022 Telemedicine Gastroenterology Eusebio Haines MD [address] [place], [place] [address] documented as of this encounter Visit Diagnoses Not on filedocumented in this encounter Care Teams Patient Educator Relationship Specialty Start Date End Date Sheeba Castillo, JOB COACH/JOB DEVELOPER, BESSEMER REGULATOR PCP - General Nurse Practitioner 07/20/16 [address] [place] MAGDALENA Dinh [phone] documented as of this encounter
--- OUTSIDE RECORDS SUMMARY | 2022-05-09 19:26 | XMS_ITS | Encounter Summary ---
:1975 Author Organization [employer] Address [address] [place] [address] Care Team Providers Name Role Phone Sheeba Castillo APRN, CNP Primary Care Provider [phone] Reason for Visit Reason Comments Nausea surgery 07/12/16 FEVER DIARRHEA Encounter Details Date Type Department Care Team Description 07/17/2016 Office Visit [facility] Fernanda Lancaster Abd ominal pain, generalized (Primary Dx); Practice PA-C Nausea; [address] [address] [facility] [place], [place] [id number] Social History Tobacco Use Types Packs/Day Years Used Date Smoking Tobacco: Former Cigarettes 0.3 15 Quit : 04/25/2015 Smokeless Tobacco: Never Alcohol Use Standard Drinks/Week Comments Yes 0 (1 standard drink = 0.6 oz pure alcoho l) rarely Sex Assigned at Date Recorded Female 05/09/2021 7:19 PM MEDICAL CSR documented as of this encounter Last Filed Vital Signs Vital Sign Reading Time Taken Comments Blood Pressure 115/81 07/17/2016 9:10 AM MEDICAL CSR Pulse 119 07/17/2016 9:10 AM MEDICAL CSR Temperature 36.9 ??C (98.5 ??F) 07/17/2016 9:10 AM MEDICAL CSR Respiratory Rate 20 07/17/2016 9:10 AM MEDICAL CSR Oxygen Saturation - - Inhaled Oxygen Concentration - - Weight 88.4 kg (194 lb 12.8 oz) 07/17/2016 9:10 AM MEDICAL CSR Height 168.3 cm (5' 6.25) 07/17/2016 9:10 AM MEDICAL CSR Body Mass Index 31.2 07/17/2016 9:10 AM MEDICAL CSR documented in this encounter Progress Notes Fernanda [...] no drainage or redness. Last dose of Brimson was over 24 hours ago. Has been [...] Rx for promethazine 25mg tabs for nausea. Weber diet, push fluids. Fernanda Lancaster PA-C 07/17/2016, 12:42 PM CAL CSR documented in this encounter Plan of Treatment Upcoming Encounters Date Type Specialty Care Team Description 05/12/2022 Hospital Encounter Chemo Therapy/Infusion Services 09/15/2022 Telemedicine Gastroenterology Eusebio Haines MD [address] [place], [place] [address] documented as of this encounter Results (ABNORMAL) Complete Blood Count-W/Diff (07/17/2016 9:38 AM MEDICAL CSR) [facility] gist Method Time Signature WBC 13.5 (H) [...] [facility] Lymph 21 % [facility] [place] 11 % [facility] Eos 4 % [facility] Baso 0 % [facility] Neutrophil 8.5 (H) 1.8 - 7.7 [facility]ul [facility] Lymph Absolute 2.8 1.0 - 4.8 [facility] [place] Absolute 1.5 (H) 0.1 - 0.7 [facility] Eos Absolute 0.5 0.0 - 0.5 [facility]ul [facility] Baso Absolute 0.0 0.0 - 0.2 [facility] Immature Gran 1 % [facility] Imm Gran 0.2 (H) 0 k/ul [facility] Specimen Anatomical Collection Method Collection Time Receive d Time (Source) Location / / Volume Laterality 07/17/2016 9:38 AM 7 9:39 MEDICAL CSR AM MEDICAL CSR Narrative [facility] - 07/17/2016 3:[address] Performed at [facility], [address] [place] [id number] Fernanda Lancaster PA-C LAB_1 Performing Organization Address City/[facility] Code Phon e Number [facility] [phone] (ABNORMAL) Basic Metabolic Panel (07/17/2016 9:38 AM MEDICAL CSR) [facility] gist Method Time Signature Sodium 135 [...] Volume Laterality 07/17/2016 9:38 AM 7 9:39 MEDICAL CSR AM MEDICAL CSR Narrative [facility] - 07/17/2016 4:[address] Performed at [facility] [employer] [facility], [address] [place] [address] ??[id number] Fernanda Lancaster PA-C LAB_1 Performing Organization Address City/[facility] Phon e Number [facility] [phone] documented in this encounter Visit Diagnoses Diagnosis Abdominal pain, generalized - Primary Nausea Nausea alone Diarrhea, unspecified type Acute hypokalemia Hypopotassemia Abdominal pain, generalized documented in this encounter Care Teams Dermatologist Managing Partner Relationship Specialty Start Date End Date Sheeba Castillo, CONTINUOUS IMPROVEMENT COORDINATOR, POT FIREMAN PCP - General Nurse Practitioner 07/20/[address] [place] [address] documented as of this encounter
--- OUTSIDE RECORDS SUMMARY | 2022-05-09 19:26 | XMS_ITS | Encounter Summary ---
:1975 Author Organization [employer] Address [address] [address] Care Team Providers Name Role Phone Sheeba Castillo APRN, CNP Primary Care Provider [phone] Encounter Details Date Type Department Care Team Description 07/22/2016 Correspondence [facility] Fernanda Lancaster R ETURN TO WORK [facility] Practice PA-C [address] [facility] [address] [place] [phone] Social History Tobacco Use Types Packs/Day Years Used Date Smoking Tobacco: Former Cigarettes 0.3 15 Quit : 04/25/2015 Smokeless Tobacco: Never Alcohol Use Standard Drinks/Week Comments Yes 0 (1 standard drink = 0.6 oz pure alcoho l) rarely Sex Assigned at Date Recorded Female 05/09/2021 7:19 PM CDL INSTRUCTOR documented as of this encounter Plan of Treatment Upcoming Encounters Date Type Specialty Care Team Description 05/12/2022 Hospital Encounter Chemo Therapy/Infusion Services 09/15/2022 Telemedicine Gastroenterology Eusebio Haines MD [address] [place] [address] documented as of this encounter Visit Diagnoses Not on filedocumented in this encounter Care Teams Doweler Relationship Specialty Start Date End Date Sheeba Castillo APRN, SOFTWARE QA MANAGER PCP - General Nurse Practitioner 07/20/[address] [place] [address] documented as of this encounter
--- OUTSIDE RECORDS SUMMARY | 2022-05-09 19:26 | XMS_ITS | Encounter Summary ---
:1975 Author Organization [employer] Address [address] [place] [address] Care Team Providers Name Role Phone Sheeba Castillo APRN, [place] Primary Care Provider [phone] Reason for Visit Reason Onset Date Comments Refill 07/24/2016 Encounter Details Date Type Department Care Team Description 07/24/2016 Refill [facility] Sheeba Roca APRN, Refill [address] [address] [phone] [place], [place] [address] (Wo rk) Social History Tobacco Use Types Packs/Day Years Used Date Smoking Tobacco: Former Cigarettes 0.3 15 Quit : 04/25/2015 Smokeless Tobacco: Never Alcohol Use Standard Drinks/Week Comments Yes 0 (1 standard drink = 0.6 oz pure alcoho l) rarely Sex Assigned at Date Recorded Female 05/09/2021 7:19 PM PHARMACY TECHNICIAN documented as of this encounter Nursing Notes Lubna Salazar RN - 07/24/2016 12:08 PM CST DOES NOT MEET REQUIREMENTS FOR REFILL Reason: medication not on approved RN refill list Last visit with PCP: qualifying visit on 11/18/15 MACY TECHNICIAN documented in this encounter Plan of Treatment Upcoming Encounters Date Type Specialty Care Team Description 05/12/2022 Hospital Encounter Chemo Therapy/Infusion Services 09/15/2022 Telemedicine Gastroenterology Eusebio Haines MD [address] [place] [address] documented as of this encounter Visit Diagnoses Not on filedocumented in this encounter Care Teams Investigation Clerk Relationship Specialty Start Date End Date Sheeba Castillo APRN, PIPE MAKER PCP - General Nurse Practitioner 07/20/16 [address] [place] [id number] documented as of this encounter
--- OUTSIDE RECORDS SUMMARY | 2022-05-09 19:26 | XMS_ITS | Encounter Summary ---
:1975 Author Organization [email or web address] Address [address] [address] Care Team Providers Name Role Phone Sheeba Casitllo APRN, CNP Primary Care Provider [phone] Encounter Details Date Type Department Care Team Description 07/21/2016 Correspondence [facility] Fernanda Lancaster D ISABILITY CLAIM Practice PA-C [facility] [address] [place] [phone] Social History Tobacco Use Types Packs/Day Years Used Date Smoking Tobacco: Former Cigarettes 0.3 15 Quit : 04/25/2015 Smokeless Tobacco: Never Alcohol Use Standard Drinks/Week Comments Yes 0 (1 standard drink = 0.6 oz pure alcoho l) rarely Sex Assigned at Date Recorded Female 05/09/2021 7:19 PM DIGITAL INTERN documented as of this encounter Plan of Treatment Upcoming Encounters Date Type Specialty Care Team Description 05/12/2022 Hospital Encounter Chemo Therapy/Infusion Services 09/15/2022 Telemedicine Gastroenterology Eusebio Haines MD [address] [place] [address] documented as of this encounter Visit Diagnoses Not on filedocumented in this encounter Care Teams Ornamental Iron Erector Relationship Specialty Start Date End Date Sheeba Castillo, RUDY, AEROSPACE PROJECT MANAGER PCP - General Nurse Practitioner 07/20/[address] [place] [id number] documented as of this encounter
--- OUTSIDE RECORDS SUMMARY | 2022-05-09 19:26 | XMS_ITS | Encounter Summary ---
:1975 Author Organization [employer] Address [address] [address] Care Team Providers Name Role Phone Sheeba Castillo APRN, CNP Primary Care Provider [phone] Encounter Details Date Type Department Care Team Description 07/22/2016 Correspondence [facility] Fernanda Lancaster R ETURN TO WORK [facility] Practice PA-C [address] [facility] [address] [place] [address] [phone] Social History Tobacco Use Types Packs/Day Years Used Date Smoking Tobacco: Former Cigarettes 0.3 15 Quit : 04/25/2015 Smokeless Tobacco: Never Alcohol Use Standard Drinks/Week Comments Yes 0 (1 standard drink = 0.6 oz pure alcoho l) rarely Sex Assigned at Date Recorded Female 05/09/2021 7:19 PM PROFESSOR OF INDUSTRIAL TECHNOLOGY documented as of this encounter Plan of Treatment Upcoming Encounters Date Type Specialty Care Team Description 05/12/2022 Hospital Encounter Chemo Therapy/Infusion Services 09/15/2022 Telemedicine Gastroenterology Eusebio Haines MD [address] [place] [address] documented as of this encounter Visit Diagnoses Not on filedocumented in this encounter Care Teams Laborer Construction Or Leak Gang Relationship Specialty Start Date End Date Sheeba Castillo APRN, BEARING PRESS MACHINE OPERATOR PCP - General Nurse Practitioner 07/20/[address] [place] [address] documented as of this encounter
--- OUTSIDE RECORDS SUMMARY | 2022-05-09 19:26 | XMS_ITS | Encounter Summary ---
:1975 Author Organization [employer] Address [address] [place] [address] Care Team Providers Name Role Phone Sheeba Castillo APRN, SIERRA Primary Care Provider Encounter Details Date Type Department Care Team Description 07/17/2016 Lab Visit [facility] Acute hypokalemia; [address] [facility] Abdominal pain, generalized [place], [place] [address] Social History Tobacco Use Types Packs/Day Years Used Date Smoking Tobacco: Former Cigarettes 0.3 15 Quit : 04/25/2015 Smokeless Tobacco: Never Alcohol Use Standard Drinks/Week Comments Yes 0 (1 standard drink = 0.6 oz pure alcoho l) rarely Sex Assigned at Date Recorded Female 05/09/2021 7:19 PM WOOD HEEL FINISHER documented as of this encounter Plan of Treatment Upcoming Encounters Date Type Specialty Care Team Description 05/12/2022 Hospital Encounter Chemo Therapy/Infusion Services 09/15/2022 Telemedicine Gastroenterology Eusebio Haines MD [address] [place] [address] documented as of this encounter Procedures Procedure Name Priority Date/Time Associated Diagnosis Comme nts COMPLETE BLOOD Routine 07/17/2016 9:38 AM Abdominal pain, Resu lts for this COUNT-W/DIFF WOOD HEEL FINISHER generalized procedure are i n the results section. BASIC METABOLIC Routine 07/17/2016 9:38 AM Abdominal pain, Res ults for this PANEL WOOD HEEL FINISHER generalized procedure are i n the results section. ELECTROLYTE PANEL Routine 07/17/2016 9:37 AM Acute hypokalemia Results for this WOOD HEEL FINISHER procedure are i n the results section. documented in this encounter Results (ABNORMAL) Complete Blood Count-W/Diff (07/17/2016 9:38 AM WOOD HEEL FINISHER) [facility] Method Time Signature WBC 13.5 (H) 4.0 [...] [facility] Lymph 21 % [facility] [place] 11 % [facility] Eos 4 % [facility] Baso 0 % [facility] Neutrophil 8.5 (H) 1.8 - 7.7 [facility] Lymph Absolute 2.8 1.0 - 4.8 [facility] [place] Absolute 1.5 (H) 0.1 - 0.7 [facility] Eos Absolute 0.5 0.0 - 0.5 [facility] Baso Absolute 0.0 0.0 - 0.2 [facility] Immature Gran 1 % [facility] Imm Gran 0.2 (H) 0 k/ul [facility] Specimen Anatomical Collection Method Collection Time Receive d Time (Source) Location / / Volume Laterality 07/17/2016 9:38 AM 7 9:39 WOOD HEEL FINISHER AM WOOD HEEL FINISHER Narrative [facility] - 07/17/2016 3:[address] Performed at [facility], [address] [place] [address] ??[address] Fernanda Lancaster PA-C LAB_1 Performing Organization Address City/State/ZIP Code Phon e Number [facility] [phone] (ABNORMAL) Basic Metabolic Panel (07/17/2016 9:38 AM WOOD HEEL FINISHER) Patholo gist Method Time Signature Sodium 135 [...] Volume Laterality 07/17/2016 9:38 AM 7 9:39 WOOD HEEL FINISHER AM WOOD HEEL FINISHER Narrative [facility] - 07/17/2016 4:[address] Performed at [facility], [address] [place] [address] ??[address] Fernanda Lancaster PA-C LAB_1 Performing Organization Address City/[facility] Phon e Number [facility] [phone] Electrolyte Panel (07/17/2016 9:37 AM WOOD HEEL FINISHER) P athologist Signature Sodium 136 136 - [...] Volume Laterality 07/17/2016 9:37 AM 7 9:38 WOOD HEEL FINISHER AM WOOD HEEL FINISHER Narrative [facility] - 07/17/2016 4:[address] Performed at [facility], [address] [place] [address] ??[id number] Sheeba Castillo APRN, CNP LAB_1 Performing Organization Address City/State/ZIP Code Phon e Number [facility] [phone] documented in this encounter Visit Diagnoses Diagnosis Acute hypokalemia Hypopotassemia Abdominal pain, generalized documented in this encounter Care Teams Jack Machine Operator Relationship Specialty Start Date End Date Sheeba Castillo, RUDY, AGING ROOM OPERATOR PCP - General Nurse Practitioner 07/13/16 07/17/16 [address] [place] [id number] documented as of this encounter
--- OUTSIDE RECORDS SUMMARY | 2022-05-09 19:26 | XMS_ITS | Encounter Summary ---
:1975 Author Organization [employer] Address [address], [place] [address] Care Team Providers Name Role Phone Sheeba Castillo APRN, CNP Primary Care Provider [phone] Reason for Visit Reason Comments FOLLOW-UP,ER Encounter Details Date Type Department Care Team Description 07/21/2016 Office Visit [facility] Fernanda Lancaster Enc ounters for administrative purpose (Primary Dx); Practice PA-C [address] [phone] Social History Tobacco Use Types Packs/Day Years Used Date Smoking Tobacco: Former Cigarettes 0.3 15 Quit : 04/25/2015 Smokeless Tobacco: Never Alcohol Use Standard Drinks/Week Comments Yes 0 (1 standard drink = 0.6 oz pure alcoho l) rarely Sex Assigned at Date Recorded Female 05/09/2021 7:19 PM FBI SPECIAL AGENT documented as of this encounter Last Filed Vital Signs Vital Sign Reading Time Taken Comments Blood Pressure 130/82 07/21/2016 2:11 PM FBI SPECIAL AGENT Pulse 106 07/21/2016 2:11 PM FBI SPECIAL AGENT Temperature 36.9 ??C (98.5 ??F) 07/21/2016 2:11 PM FBI SPECIAL AGENT Respiratory Rate 12 07/21/2016 2:11 PM FBI SPECIAL AGENT Oxygen Saturation - - Inhaled Oxygen Concentration [...] week Fernanda Lancaster PA-C 07/21/2016, 10:12 PM SPECIAL AGENT documented in this encounter Plan of Treatment Upcoming Encounters Date Type Specialty Care Team Description 05/12/2022 Hospital Encounter Chemo Therapy/Infusion Services 09/15/2022 Telemedicine Gastroenterology Eusebio Haines MD [address] [place], [place] [address] documented as of this encounter Visit Diagnoses Diagnosis Encounters for administrative purpose - Primary Encounters for unspecified administrativ e purpose Colitis Other and unspecified noninfectious mónica roenteritis and colitis documented in this encounter Care Teams Copier Operator Relationship Specialty Start Date End Date Sheeba Castillo, QUALITY CONTROL ASSISTANT, CORPORATE LEGAL MANAGER PCP - General Nurse Practitioner 07/20/16 [id number] [facility] [place] [address] documented as of this encounter
--- OUTSIDE RECORDS SUMMARY | 2022-05-09 19:26 | XMS_ITS | Encounter Summary ---
:1975 Author Organization [employer] Address [address] [address] Care Team Providers Name Role Phone Sheeba Castillo APRN, CNP Primary Care Provider [phone] Reason for Visit Reason Onset Date Comments Refill 07/12/2016 Encounter Details Date Type Department Care Team Description 07/12/2016 Refill [facility] Chandrika Greene MD Refill [address] [place] [address] [place], [place] [phone] (Wo rk) Social History Tobacco Use Types Packs/Day Years Used Date Smoking Tobacco: Former Cigarettes 0.3 15 Quit : 04/25/2015 Smokeless Tobacco: Never Alcohol Use Standard Drinks/Week Comments Yes 0 (1 standard drink = 0.6 oz pure alcoho l) rarely Sex Assigned at Date Recorded Female 05/09/2021 7:19 PM SHIPBUILDING DRAFTSPERSON documented as of this encounter Nursing Notes Ashley Osuna RN - 07/13/2016 4:28 PM CST Pt got orders from her PCP for refill. Will F/U with pcp. BUILDING DRAFTSPERSON Lori Tapia DO - 07/13/2016 4:19 PM CST 2 tabs was the correct quantity. She doesn't need refills. She will need to f/u with PCP for repeat potassium and to see if she needs more potassium suplpementation in [facility] future BUILDING DRAFTSPERSON Ashley Osuna, MARIO - 07/13/2016 10:44 AM CST Please advise on the refill for a Pre-Op you did . I see only 2 tabs were ordered but not sure what to do with it. BUILDING DRAFTSPERSON Brigid Cho, MARIO - 07/13/2016 8:29 AM SHIPBUILDING DRAFTSPERSON From: Idania Duarte To: Chandrika Diez MD Sent: 07/12/2016 10:00 PM SHIPBUILDING DRAFTSPERSON Subject: Medication Renewal Request Original authorizing provider: MD Idania Etienne would like a refill of the following medications: potassium chloride (K-DUR,KLOR-CONM) 20 MEQ tablet [Chandrika Diez MD] Preferred pharmacy: [facility] [address] Comment: BUILDING DRAFTSPERSON documented in this encounter Plan of Treatment Upcoming Encounters Date Type Specialty Care Team Description 05/12/2022 Hospital Encounter Chemo Therapy/Infusion Services 09/15/2022 Telemedicine Gastroenterology Eusebio Haines MD [address] [place], [place] [address] documented as of this encounter Visit Diagnoses Diagnosis Acute hypokalemia Hypopotassemia documented in this encounter Care Teams Wildlife Biology Technician Relationship Specialty Start Date End Date Sheeba Castillo, LENS GRINDER AND POLISHER, LEAD BURNER HELPER PCP - General Nurse Practitioner 07/13/16 07/17/16 [address] [place] [phone] documented as of this encounter
--- OUTSIDE RECORDS SUMMARY | 2022-05-09 19:26 | XMS_ITS | Encounter Summary ---
:1975 Author Organization [employer] Address [address] [address] Care Team Providers Name Role Phone Sheeba Castillo APRN, CNP Primary Care Provider [phone] Encounter Details Date Type Department Care Team Description 07/22/2016 Correspondence [facility] Fernanda Lancaster R ETURN TO WORK [facility] Practice PA-C [address] [facility] [place] [address] [place] [address] [phone] Social History Tobacco Use Types Packs/Day Years Used Date Smoking Tobacco: Former Cigarettes 0.3 15 Quit : 04/25/2015 Smokeless Tobacco: Never Alcohol Use Standard Drinks/Week Comments Yes 0 (1 standard drink = 0.6 oz pure alcoho l) rarely Sex Assigned at Date Recorded Female 05/09/2021 7:19 PM BAKED GOODS STOCK CLERK documented as of this encounter Plan of Treatment Upcoming Encounters Date Type Specialty Care Team Description 05/12/2022 Hospital Encounter Chemo Therapy/Infusion Services 09/15/2022 Telemedicine Gastroenterology Eusebio Haines MD [address] [place] [address] documented as of this encounter Visit Diagnoses Not on filedocumented in this encounter Care Teams Allergist/Immunologist Physician Relationship Specialty Start Date End Date Sheeba Castillo APRN, POLITICAL ORGANIZER PCP - General Nurse Practitioner 07/20/[address] [place] [id number] documented as of this encounter
--- OUTSIDE RECORDS SUMMARY | 2022-05-09 19:26 | XMS_ITS | Encounter Summary ---
:1975 Author Organization [employer] Address [address] [place] [address] Care Team Providers Name Role Phone Fernanda Lancaster PA-C Primary Care Provider Reason for Referral Procedure/Equipment (Routine) - Incomplete Specialty Diagnoses / Procedures Referred By Contact Refer red To Contact Procedures Dirk Rueda MD CT Abd Pelvis W IV Cont [address] [place], [place] [address] Referral ID Status Reason Start Date Expiration Date Visits V isits Requested Authorized [id number] Incomplete 07/19/2016 10/18/2017 1 1 SERVICE DRIVER Reason for Visit Reason Comments Abdominal Pain Nausea Encounter Details Date Type Department Care Team Description 07/19/2016 Emergency [facility] Alex Rueda MD Colitis; Center [address] Elevated LFTs; [address] Hypokalemia; [place] [address] Hematochezia [id number] [phone] Social History Tobacco Use Types Packs/Day Years Used Date Smoking Tobacco: Former Cigarettes 0.3 15 Quit : 04/25/2015 Smokeless Tobacco: Never Alcohol Use Standard Drinks/Week Comments Yes 0 (1 standard drink = 0.6 oz pure alcoho l) rarely Sex Assigned at Date Recorded Female 05/09/2021 7:19 PM FOOD SERVICE DRIVER documented as of this encounter Last Filed Vital Signs Vital Sign Reading Time Taken Comments Blood Pressure 132/83 07/19/2016 4:53 PM FOOD SERVICE DRIVER Pulse 112 07/19/2016 4:53 PM FOOD SERVICE DRIVER Temperature 36.6 ??C (97.9 ??F) 07/19/2016 11:44 AM FOOD SERVICE DRIVER Respiratory Rate 18 07/19/2016 11:44 AM FOOD SERVICE DRIVER Oxygen Saturation 95% 07/19/2016 4:53 PM FOOD SERVICE DRIVER Inhaled Oxygen Concentration - - Weight 88 kg (194 lb) 07/19/2016 11:44 AM FOOD SERVICE DRIVER Height - - Body Mass Index 31.08 07/17/2016 9:10 AM FOOD SERVICE DRIVER documented in this encounter Discharge Instructions Discharge [...] can you learn more? 1. Go to [employer] or [employer]. 2. Enter J212 in the search box. Current as of: May 14, 2015 Content Version: 11.0 ?? [id number] [employer]. Discharge Instructions Abdominal Pain Abdominal pain [...] directed by your doctor today. Before using lwpn-prf-ahywpja medications, ask your doctor and make sure [...] Care Instructions Your Care Instructions Hypokalemia (say ra-mg-sqt-ISREAL-dory-uh) is a low level of potassium. The [...] can you learn more? 1. Go to [employer] or [employer]. 2. Enter G358 in the search box. Current as of: May 14, 2015 Content Version: 11.0 ?? [id number] [employer]. SERVICE DRIVER documented in this encounter Medications at Time [...] as of this encounter ED Notes Matilde Collins, RN - 07/19/2016 5:00 PM CST [facility] ED Nursing Discharge Note Patient discharged: to [...] RN 5:01 PM 07/19/2016 ---End of Report--- Matilde Hernández RN - 07/19/2016 2:05 PM CST Prior to administering medication, Idania Duarte was informed of which medication(s) they were about to receive and their associated side effects including impairing their ability to drive and the need to have a ride home with a responsible alliance party. Drik Jimenez MD - 07/19/2016 12:10 PM CST Chief [...] Topamax Phenergan KCl Norinyl, Orthonovum Lialda Canasa [place] Bentyl Elavil Allergies: The patient has no [...] (H), Hematocrit 45.4 (WNL), Platelet 515 (H), Tdbgegbmdsi97.9 (H), Monocytes 1.1 (H), Granulocytes 1.5 (H), [...] Vitals: Temp: 36.6 ??C (97.9 ??F) (07/19 114) Temp src: Oral (07/19 1143) Pulse: 110 (07/19 1517) Resp: 18 (07/19 [...] and the provider's statements to me. 07/19/2016 [facility] Dirk Rueda MD 07/19/162020 SERVICE DRIVER documented in this encounter Plan of Treatment Upcoming Encounters Date Type Specialty Care Team Description 05/12/2022 Hospital Encounter Chemo Therapy/Infusion Services 09/15/2022 Telemedicine Gastroenterology Eusebio Haines MD [address] [place] [address] documented as of this encounter Procedures Procedure Name Priority Date/Time Associated Comments Diagnosis CT ABD PELVIS W IV STAT 07/19/2016 1:57 PM Res ults for this CONT ONLY FOOD SERVICE DRIVER procedure are i n the results section. C.DIFFICILE STAT 07/19/2016 1:06 PM Results f or this TOXIN,MOLECULAR FOOD SERVICE DRIVER procedure ar e in DETECTION the results section. STOOL CULTURE STAT 07/19/2016 1:06 PM Results for this FOOD SERVICE DRIVER procedure are i n the results section. LACTATE REFLEX PANEL STAT 07/19/2016 12:21 Res ults for this PM FOOD SERVICE DRIVER procedure are i n the results section. EMERGENCY CENTER DRAW STAT 07/19/2016 12:21 Re sults for this AND HOLD PM FOOD SERVICE DRIVER procedure are i n the results section. ANION GAP STAT 07/19/2016 12:21 Results for this PM FOOD SERVICE DRIVER procedure are i n the results section. COMPLETE BLOOD STAT 07/19/2016 12:21 Results f or this COUNT-W/DIFF PM FOOD SERVICE DRIVER procedure are i n the results section. LIVER PANEL(HEPATIC STAT 07/19/2016 12:21 Resu lts for this FUNCTION PANEL) PM FOOD SERVICE DRIVER procedure ar e in the results section. BASIC METABOLIC PANEL STAT 07/19/2016 12:21 Re sults for this PM FOOD SERVICE DRIVER procedure are i n the results section. DIFFERENTIAL STAT 07/19/2016 12:21 Results for this PM FOOD SERVICE DRIVER procedure are i n the results section. HCG,QUALITATIVE, STAT 07/19/2016 12:21 Results for this SERUM PM FOOD SERVICE DRIVER procedure ar e in the results section. LIPASE STAT 07/19/2016 12:21 Results for this PM FOOD SERVICE DRIVER procedure are i n the results section. documented in this encounter Results CT Abd Pelvis W IV Cont Only (07/19/2016 1:57 PM FOOD SERVICE DRIVER) Anatomical Region Laterality Modality Abdomen, Pelvis Computed Tomography Specimen (Source) Anatomical Collection Method Collection Time Re ceived Time Location / / Volume Laterality 07/19/2016 1:42 PM FOOD SERVICE DRIVER Impressions 07/19/2016 2:10 PM FOOD SERVICE DRIVER IMPRESSION: ?? 1. Moderate wall thickening and pericolo robinson inflammation and vascular engorgement involving the colon from the level of the mid ascending colon to the distal descending colon. Findings compatible with n onspecific colitis. No free air, pneumat osis, or portal venous gas and no free fluid or fluid collections. 2. No acute findings otherwise. Narrative 07/19/2016 2:10 PM FOOD SERVICE DRIVER COMPARISON: ??None. TECHNIQUE: ??Images were obtained throug [...] RAD CT Stool Culture (07/19/2016 1:06 PM FOOD SERVICE DRIVER) Component Value Ref Test Analysis Performed At [facility] Domo Range Method Time Signature Source Stool PN SOFT Site PN SOFT Stool Culture No Salmonella, Shigella, Campylobacter or E. coli 0157: H7 PN SOFT Isolated No Aeromonas or Plesiomonas Isolated Shigatoxin Negative for PN SOFT Enzyme Shiga Toxin 1 ImmunoAssay and Shiga Toxin 2 Specimen (Source) Anatomical Collection Method Collection Time Re ceived Time Location / / Volume Laterality 07/19/2016 1:06 PM FOOD SERVICE DRIVER Narrative PN SOFT - 07/22/2016 10:19 AM FOOD SERVICE DRIVER Performed at [address] [address], CLIA Number [id number] Dirk Rueda MD LAB_1 Performing Organization Address City/[facility] Phon e Number PN SOFT [address] [place] [address] C.Difficile Toxin,Molecular Detection, (07/19/2016 1:06 PM FOOD SERVICE DRIVER) [facility] Domo Method Time Signature Clostridium Negative PN SOFT difficile PCR Comment: Reference Range: ??Negative Method description (GeneXpert): Rapid, real-time PCR assay to detect tcd B (the Clostridium difficile toxin B gene) in human liquid or soft stools. Specimen Anatomical Collection Method Collection Time Receive d Time (Source) Location / / Volume Laterality 07/19/2016 1:06 PM 7 1:09 FOOD SERVICE DRIVER PM FOOD SERVICE DRIVER Narrative PN SOFT - 07/19/2016 2:10 PM FOOD SERVICE DRIVER Performed at [address] [address] CLIA number [id number] Dirk Rueda MD LAB_1 Performing Organization Address [facility] Phon e Number PN SOFT [address] [place] [address] [phone] (ABNORMAL) Liver Panel(Hepatic Function Panel) (07/19/2016 12:21 PM FOOD SERVICE DRIVER) Patholo gist Method Time Signature Alk Phos [...] / Volume Laterality 07/19/2016 12:21 07/19/2016 PM FOOD SERVICE DRIVER 12:31 PM FOOD SERVICE DRIVER Narrative PN SOFT - 07/19/2016 1:08 PM FOOD SERVICE [place] [address] CLIA number [id number] .Collection has been rescheduled by HEITE at 07/19/2016 12:23. Reason: ?rn .draw Eusebio Valero MD LAB_1 Performing Organization Address [facility] e Number PN SOFT [address] [place] [address] (ABNORMAL) Lipase (07/19/2016 12:21 PM FOOD SERVICE DRIVER) P athologist Signature Lipase 129 (H) 8 - 78 U/L PN SOFT Specimen Anatomical Collection Method Collection Time Receive d Time (Source) Location / / Volume Laterality 07/19/2016 12:21 07/19/2016 PM FOOD SERVICE DRIVER 12:31 PM FOOD SERVICE DRIVER Narrative PN SOFT - 07/19/2016 1:08 PM FOOD SERVICE [place] [address] CLIA number [id number] .Collection has been rescheduled by HEITE at 07/19/2016 12:23. Reason: ?rn .draw Eusebio Valero MD LAB_1 Performing Organization Address [facility] Phon e Number PN SOFT [address] [place] [address] HCG, Qualitative, Serum (07/19/2016 12:21 PM FOOD SERVICE DRIVER) P athologist Signature Serum Negative PN SOFT Test [...] / Volume Laterality 07/19/2016 12:21 07/19/2016 PM FOOD SERVICE DRIVER 12:32 PM FOOD SERVICE DRIVER Narrative PN SOFT - 07/19/2016 12:51 PM FOOD SERVICE DRIVER Performed at [address] [address] CLIA number [id number] Dirk Rueda MD LAB_1 Performing Organization Address City/State/ZIP Code Phon e Number PN SOFT [address] [place] [address] (ABNORMAL) Differential (07/19/2016 12:21 PM FOOD SERVICE DRIVER) Patholo gist Method Time Signature Absolute 11.9 (H) [...] / Volume Laterality 07/19/2016 12:21 07/19/2016 PM FOOD SERVICE DRIVER 12:31 PM FOOD SERVICE DRIVER Narrative PN SOFT - 07/19/2016 12:40 PM FOOD SERVICE DRIVER Performed at [place] [address] CLIA number [id number] .Collection has been rescheduled by HEITE at 07/19/2016 12:23. Reason: ?rn .draw Eusebio Valero MD LAB_1 Performing Organization Address [facility] Phon e Number PN SOFT [address] [place] [address] Anion Gap (07/19/2016 12:21 PM FOOD SERVICE DRIVER) athologist Signature ANION GAP 12 0 - 16 mEq/L PN SOFT Specimen Anatomical Collection Method Collection Time Receive d Time (Source) Location / / Volume Laterality 07/19/2016 12:21 07/19/2016 PM FOOD SERVICE DRIVER 12:31 PM FOOD SERVICE DRIVER Narrative PN SOFT - 07/19/2016 1:08 PM FOOD SERVICE DRIVER Performed at [address] [address] CLIA number [id number] .Collection has been rescheduled by HEITE at 07/19/2016 12:23. Reason: ?rn .draw Eusebio Valero MD LAB_1 Performing Organization Address [facility] Phon e Number PN SOFT [address] [place] [address] Lactate Reflex Panel (07/19/2016 12:21 PM FOOD SERVICE DRIVER) athologist Signature Lactate, Plasma 1.8 0.3 - 1.9 PN SOFT mmol/L Comment: Performed at [address] [address] CLIA#[id number] Specimen Anatomical Collection Method Collection Time Receive d Time (Source) Location / / Volume Laterality 07/19/2016 12:21 07/19/2016 PM FOOD SERVICE DRIVER 12:31 PM FOOD SERVICE DRIVER Narrative PN SOFT - 07/19/2016 12:47 PM FOOD SERVICE DRIVER .Collection has been rescheduled by HEIT E at 07/19/2016 12:23. Reason: ?rn .draw Eusebio Valero MD LAB_1 Performing Organization Address [facility] Phon e Number PN SOFT [address] [place] [address] (ABNORMAL) Complete Blood Count-W/Diff (07/19/2016 12:21 PM FOOD SERVICE DRIVER) [facility] gist Method Time Signature White Blood [...] / Volume Laterality 07/19/2016 12:21 07/19/2016 PM FOOD SERVICE DRIVER 12:31 PM FOOD SERVICE DRIVER Narrative PN SOFT - 07/19/2016 12:39 PM FOOD SERVICE DRIVER Performed at [facility], [address] [place] [address] CLIA number [id number] .Collection has been rescheduled by AIMEE at 07/19/2016 12:23. Reason: ?rn .draw Eusebio Valero MD LAB_1 Performing Organization Address City/State/ZIP Code Phon e Number PN SOFT [address] [place] [address] [phone] (ABNORMAL) Basic Metabolic Panel (07/19/2016 12:21 PM FOOD SERVICE DRIVER) athologist Signature Creatinine 1.01 0.55 - PN [...] / Volume Laterality 07/19/2016 12:21 07/19/2016 PM FOOD SERVICE DRIVER 12:31 PM FOOD SERVICE DRIVER Narrative PN SOFT - 07/19/2016 1:08 PM FOOD SERVICE [place] [address] CLIA number [id number] .Collection has been rescheduled by HEITE at 07/19/2016 12:23. Reason: ?rn .draw Eusebio Valero MD LAB_1 Performing Organization Address [facility] Phon e Number PN SOFT [address] [place] [address] Emergency Center Draw And Hold (07/19/2016 12:21 PM FOOD SERVICE DRIVER) athologist Signature Emergency Drawn PN SOFT Center Draw And Hold Extra Lavender Drawn PN SOFT Top Drawn Extra PST Top Drawn PN SOFT Drawn Extra SST Top Drawn PN SOFT Drawn Specimen Anatomical Collection Method Collection Time Receive d Time (Source) Location / / Volume Laterality 07/19/2016 12:21 07/19/2016 PM FOOD SERVICE DRIVER 12:31 PM FOOD SERVICE DRIVER Narrative PN SOFT - 07/19/2016 5:06 PM FOOD SERVICE [place] [address] CLIA number [id number] .Collection has been rescheduled by HEITE at 07/19/2016 12:23. Reason: ?rn .draw Eusbeio Valero MD LAB_1 Performing Organization Address [facility] Phon e Number PN SOFT [address] [place] [address] documented in this encounter Visit Diagnoses Diagnosis Colitis Other and unspecified noninfectious mónica roenteritis and colitis Elevated LFTs Other abnormal blood chemistry Hypokalemia Hypopotassemia Hematochezia Blood in stool Triage Assessment Note - Kiley Tracy RN - 07/19/2016 11:39 AM FOOD SERVICE DRIVER Patient ambulatory to triage. C/o abd pain [...] heaves despite taking zofran. Tachycardic in triage. SERVICE DRIVER documented in this encounter Administered Medications Inactive Administered Medications - up to 3 most recent administrations Medication Order MAR Action Action Date Dose Rate Site 0.9% sodium chloride bolus 1,000 Started 07/19/2016 1:08 PM FOOD SERVICE DRIVER 1, 000 mL mL 1,000 mL, Intravenous, Administer over 0.6 Hours, ONCE, On Sun07/19/16 at 1245, For 1 dose HYDROmorphone injectable 0.5 mg Given 07/19/2016 2:05 PM FOOD SERVICE DRIVER 0.5 mg 0.5 mg, Intravenous, ONCE, On Sun07/19/16 at 1400, For 1 dose iopamidol (ISOVUE-300) 61 % injection 75 mL Given 07/19/2016 2:00 PM FOOD SERVICE DRIVER 75 mL 75 mL, Intravenous, ONCE, On Sun07/19/16 at 1400, For 1 dose, Radiology ondansetron (ZOFRAN) injection 4 mg Given 07/19/2016 2:03 PM FOOD SERVICE DRIVER 4 mg 4 mg, Intravenous, ONCE, On Sun07/19/16 at 1400, For 1 dose potassium chloride SA (KLOR-CON) controlled Given 07/19/2016 4:53 PM FOOD SERVICE DRIVER 40 mEq release tablet 40 mEq 40 mEq, Oral, ONCE, On Sun07/19/16 at 1630, For 1 dose sodium chloride 0.9% injection 10 mL Given 07/19/2016 2:00 PM FOOD SERVICE DRIVER 10 mL 10 mL, Intravenous, ONCE, On Sun07/19/16 at 1400, For 1 dose, Radiology sodium chloride 0.9% injection 10-60 mL Given 07/19/2016 1:08 PM FOOD SERVICE DRIVER 10 mL 10-60 mL, Intravenous, PRN, Line Patency, Line Care, Starting on Sun07/19/16 at 1145, Until Sun07/19/16 at 1902, For 8 hours documented in this encounter Active and Recently Administered Medications Times are shown in FOOD SERVICE DRIVER. Scheduled Medication Order 07/17/2016 07/18/2016 07/19/2016 0.9% [...] (Given - Provider: Idania Erickson - Comment: [id number]) 75 mL, Intravenous, ONCE, Sun07/19/16 at 1400, [...] Provider: Idania Erickson) 10 mL, Intravenous, ONCE, Sun07/19/16 at 1400, For 1 dose, Radio logy PRN Medication Order 07/17/2016 07/18/2016 07/19/2016 sodium chloride 0.9% injection 10-60 mL (CANCELED) 1308 (Given - Provider: Matilde Collins, MARIO) 10-60 mL, Intravenous, PRN, Line Patency , Line Care, Starting 07/19/16 at 1145, For 8 hours documented in this encounter Care Teams Quality Assurance Supervisor Body Relationship Specialty Start Date End Date Fernanda Lancaster PA-C PCP - General Physician Chronic Disease Manager 07/18/16 07/19/16 [address] [place] [address] documented as of this encounter
--- OUTSIDE RECORDS SUMMARY | 2022-05-09 19:26 | XMS_ITS | Encounter Summary ---
:1975 Author Organization [employer] Address [address] [place] [address] Care Team Providers Name Role Phone Fernanda Lancaster PA-C Primary Care Provider Reason for Visit Reason Comments Vomiting Diarrhea Encounter Details Date Type Department Care Team Description 07/19/2016 Hospital Encounter [facility] Wes Hodges Ab dominal pain, Care AMD unspecified location [address] [place] [address] [facility] [phone] [place] [address] Social History Tobacco Use Types Packs/Day Years Used Date Smoking Tobacco: Former Cigarettes 0.3 15 Quit : 04/25/2015 Smokeless Tobacco: Never Alcohol Use Standard Drinks/Week Comments Yes 0 (1 standard drink = 0.6 oz pure alcoho l) rarely Sex Assigned at Date Recorded Female 05/09/2021 7:19 PM FLORAL SPECIALIST documented as of this encounter Last Filed Vital Signs Vital Sign Reading Time Taken Comments Blood Pressure 124/82 07/19/2016 10:02 AM FLORAL SPECIALIST Pulse 129 07/19/2016 10:02 AM FLORAL SPECIALIST Temperature 36.6 ??C (97.8 ??F) 07/19/2016 10:02 AM FLORAL SPECIALIST Respiratory Rate 18 07/19/2016 10:02 AM FLORAL SPECIALIST Oxygen Saturation 96% 07/19/2016 10:02 AM FLORAL SPECIALIST Inhaled Oxygen Concentration - - Weight - [...] 10:40 AM CST NAME: IGGY DUARTE MR#: [id number] CSN: [id number] AUTHENTICATING CLINICIAN: Wes Hodges MD CONFIRM #: [id number] LOC: 520 URGENT CARE PROGRESS NOTE DATE [...] here or whether she should start at [facility]. She is in agreement to be referred to [facility] and may need to beadmitted, but did not want to start here and then have to transfer. She is stable to go by private car, accepted by the ER staff at [facility], who will start the evaluation of this. DAK:MEDQ C: CONFIRM #: [id number] AL SPECIALIST documented in this encounter Plan of Treatment Upcoming Encounters Date Type Specialty Care Team Description 05/12/2022 Hospital Encounter Chemo Therapy/Infusion Services 09/15/2022 Telemedicine Gastroenterology Eusebio Haines MD [address] [place] [address] documented as of this encounter Visit Diagnoses Diagnosis Abdominal pain, unspecified location Triage Assessment Note - Indira Flaherty RN - 07/19/2016 9:55 AM CST Pt [...] was having a flare-up of her colitis. AL SPECIALIST documented in this encounter Care Teams Payable Processor Relationship Specialty Start Date End Date Fernanda Lancaster PA-C PCP - General Physician Pre Fabricator 07/18/16 07/19/16 [address] [place] [address] documented as of this encounter
--- OUTSIDE RECORDS SUMMARY | 2022-05-09 19:26 | XMS_ITS | Encounter Summary ---
:1975 Author Organization [employer] Address [address] [place] [address] Care Team Providers Name Role Phone Sheeba Castillo APRN, CNP Primary Care Provider [phone] Reason for Visit Reason Comments RESULTS, TEST Encounter Details Date Type Department Care Team Description 07/17/2016 Telephone [facility] Lolly Lancaster PA-C RESULTS, TEST Practice [address] [facility] [address] [place] [address] [place], [place] [address] [phone] Social History Tobacco Use Types Packs/Day Years Used Date Smoking Tobacco: Former Cigarettes 0.3 15 Quit : 04/25/2015 Smokeless Tobacco: Never Alcohol Use Standard Drinks/Week Comments Yes 0 (1 standard drink = 0.6 oz pure alcoho l) rarely Sex Assigned at Date Recorded Female 05/09/2021 7:19 PM MARKETING SEGMENT MANAGER documented as of this encounter Nursing [...] sx Fernanda Lancaster PA-C 07/17/2016, 4:53 PM ETING SEGMENT MANAGER documented in this encounter Plan of Treatment Upcoming Encounters Date Type Specialty Care Team Description 05/12/2022 Hospital Encounter Chemo Therapy/Infusion Services 09/15/2022 Telemedicine Gastroenterology Eusebio Haines MD [address] [place] [address] documented as of this encounter Visit Diagnoses Not on filedocumented in this encounter Care Teams Clod Puller Relationship Specialty Start Date End Date Sheeba Castillo APRN, STEAM TANK OPERATOR PCP - General Nurse Practitioner 07/13/16 07/17/16 [address] [place] MAGDALENA Dinh [id number] documented as of this encounter
--- OUTSIDE RECORDS SUMMARY | 2022-05-09 19:26 | XMS_ITS | Encounter Summary ---
:1975 Author Organization [employer] Address [address] [place] [address] Care Team Providers Name Role Phone Sheeba Castillo APRN, SIERRA Primary Care Provider [phone] Reason for Visit Reason Comments Post-Op Problem Encounter Details Date Type Department Care Team Description 07/16/2016 Nurse Triage Careline Unassigned, Provider Post-Op Problem [address] [place], [place] [address] [place] [address] Social History Tobacco Use Types Packs/Day Years Used Date Smoking Tobacco: Former Cigarettes 0.3 15 Quit : 04/25/2015 Smokeless Tobacco: Never Alcohol Use Standard Drinks/Week Comments Yes 0 (1 standard drink = 0.6 oz pure alcoho l) rarely Sex Assigned at Date Recorded Female 05/09/2021 7:19 PM MANUFACTURING APPLICATIONS ENGINEER documented as of this encounter Nursing Notes Maricruz Escobar RN - 07/16/2016 10:39 AM CST Protocol: POST-OP SYMPTOMS AND [id number] Affirmative: Fever > 100.5 F (38.1 C) Disposition of See Physician Within 4 Hours (Or PCP Triage) suggested. FACTURING APPLICATIONS ENGINEER Maricruz Escobar RN - 07/16/2016 10:35 AM CST Verified [...] they relate to call): Yes Plan; Paging design/animation instructor Cindy Carter provider general surgery Dr. Michelle [...] the patient normally seen at? Cindy Wilson ([facility]) [facility] . Situation: Medical: Pt had gallbladder removed on 07/12/16, states that she still isn't feeling well. States that she is achy and fatigue.: Plan:The current callback time to speak with a nurse is 1.5 hour. If your symptoms change or worsen,or if you have not received a call back in the stated timeframe, please call us back at [phone].. FACTURING APPLICATIONS ENGINEER documented in this encounter Plan of Treatment Upcoming Encounters Date Type Specialty Care Team Description 05/12/2022 Hospital Encounter Chemo Therapy/Infusion Services 09/15/2022 Telemedicine Gastroenterology Eusebio Haines MD [address] [place], [place] [id number] documented as of this encounter Visit Diagnoses Not on filedocumented in this encounter Care Teams Scheduler Conveyor Relationship Specialty Start Date End Date hSeeba Castillo, PROGRAM PARAPROFESSIONAL, DETAIL SUPERVISOR PCP - General Nurse Practitioner 07/13/16 07/17/16 [address] [place] MAGDALENA Dinh [phone] documented as of this encounter
--- OUTSIDE RECORDS SUMMARY | 2022-05-09 19:26 | XMS_ITS | Encounter Summary ---
:1975 Author Organization [employer] Address [address], [place] [address] Care Team Providers Name Role Phone Sheeba Castillo APRN, CNP Primary Care Provider [phone] Reason for Referral (Routine) - Closed Specialty Diagnoses / Procedures Referred By Contact Refer red To Contact Procedures Suzan Hernandez, Endoscopy, sigmoid [facility] GRANT [address] [place], [place] [address] Referral ID Status Reason Start Date Expiration Date Visits Requ ested Visits Authorized [id number] Closed 07/28/2016 10/27/2017 1 1 rocedure/Equipment (Routine) - Incomplete Specialty Diagnoses / Procedures Referred By Contact Refer red To Contact Procedures Suzan Hernandez, XR Abd Flat And Upright [facility] [address] [place], [place] [address] Referral ID Status Reason Start Date Expiration Date Visits V isits Requested Authorized [id number] Incomplete 07/28/2016 10/27/2017 1 1 rocedure/Equipment (Routine) - Incomplete Specialty Diagnoses / Procedures Referred By Contact Refer tevin To Contact Procedures Suzan Hernandez, XR Portable Abd Flat COLLATERAL CLERK, ANIMAL TRAINER SUPERVISOR [address] [place], [place] [address] Referral ID Status Reason Start Date Expiration Date Visits V isits Requested Authorized [id number] Incomplete 07/26/2016 10/25/2017 1 1 rocedure/Equipment (Routine) - Incomplete Specialty Diagnoses / Procedures Referred By Contact Refer red To Contact Procedures Milton Chew MD CT Abd Pelvis W IV Cont [address] [place], [place] [address] Referral ID Status Reason Start Date Expiration Date Visits V isits Requested Authorized [id number] Incomplete 07/25/2016 10/24/2017 1 1 CAR UNLOADER Reason for Visit Reason Comments Abdominal Pain [...] Expiration Date Visits Requ ested Visits Authorized [id number] 1 1 Encounter Details Date Type Department Care Team Description 07/25/2016 Hospital [facility] Milton Chew MD [address] [place], [place] [id number] Essential hypertension (Primary Dx); - Encounter 5W-General Asia Foreman MD [address] [place], [place] [phone] Ulcerative colitis with complication, un specified location (HRC); 07/30/2016 Medicine Robin De La Cruz MD [address] [place] [address] Hematochezia; [address] Lower abdomin al pain; [address] C. difficile colitis; [place], [place] Ulcerative rectosigmoiditis with rectal bleeding ([facility]) [address] Social History Tobacco Use Types Packs/Day Years Used Date Smoking Tobacco: Former Cigarettes 0.3 15 Quit : 04/25/2015 Smokeless Tobacco: Never Alcohol Use Standard Drinks/Week Comments Yes 0 (1 standard drink = 0.6 oz pure alcoho l) rarely Sex Assigned at Date Recorded Female 05/09/2021 7:19 PM KILN CAR UNLOADER documented as of this encounter Last Filed Vital Signs Vital Sign Reading Time Taken Comments Blood Pressure 126/76 07/30/2016 7:48 AM KILN CAR UNLOADER Pulse 100 07/30/2016 7:48 AM KILN CAR UNLOADER Temperature 36.6 ??C (97.9 ??F) 07/30/2016 7:48 AM KILN CAR UNLOADER Respiratory Rate 16 07/30/2016 7:48 AM KILN CAR UNLOADER Oxygen Saturation 94% 07/30/2016 7:48 AM KILN CAR UNLOADER Inhaled Oxygen Concentration - - Weight 89.9 kg (198 lb 3.2 oz) 07/26/2016 10:00 PM KILN CAR UNLOADER Height - - Body Mass Index 31.75 07/17/2016 9:10 AM KILN CAR UNLOADER documented in this encounter Discharge Summaries Robin De La Cruz MD - 07/30/2016 2:47 PM CST NAME: IDANIA MORAN MR#: [id number] CSN: [id number] AUTHENTICATING CLINICIAN: Robin De La Cruz MD CONFIRM #: [id number] LOC: 1 HOSPITAL DISCHARGE SUMMARY DATE OF ADMISSION: 07/25/2016 DATE OF DISCHARGE: 07/30/2016 INSPECTOR FLOOR SUB ASSEMBLY: Sheeba Castillo, nurse practitioner, [facility]. ADMISSION DIAGNOSES: 1.Ulcerative colitis. 2.Clostridium difficile colitis. [...] ACTIVITY: As tolerated. FOLLOWUP: 1.Nurse, Sheeba Castillo, [facility], in 7-10 days. 2.[facility] Gastroenterology [...] 11.Triamterene/hydrochlorothiazide 37.5/25 daily. SJD:MEDQ C: CONFIRM #: [id number] CAR UNLOADER documented in this encounter Medications at Time [...] as of this encounter Progress Notes Pearl uNno RN - 07/30/2016 2:47 PM CST O: Discharge D: A&O, independent, going home today, friend in room. A: Rx's filled at in pharmacy. Paper work and patient teaching completed. R: Left [address] to go home with friend. Pearl Nuno RN 2:53 PM 07/30/[address] - 07/30/2016 1:17 PM CST Nutrition Education Assessment Reason for education: Ulcerative colitis with rectal bleeding, multiple episodes of nausea/vomiting/diarrhea x1 month TUBE CLEANER Current Diet: Low fiber/res Oral Intake: Pt [...] with dx Provide packet of printed information. Senior Mechanical Designer contact information provided Comprehension: Pt verbalized understanding of diet Marie Suarez MS, RD LD CAR UNLOADER Robin De La Cruz MD - 07/30/2016 12:52 PM CST DAILY [...] PM 07/30/2016 Department of Internal Medicine Pager [phone] CAR UNLOADER Faye Hinojosa APRN, ANIMAL TRAINER SUPERVISOR - 07/30/2016 8:20 AM CST GASTROENTEROLOGY DAILY [...] Will arrange follow up as outlined above. CAR UNLOADER Robin De La Cruz MD - 07/29/2016 [...] distrib atypical for ischemia, sl increase cf 1/25. WBC 16.7, plt 611, Hgb nl. C.diff +. Pertinent medical history: Irritable bowel syndrome Malignant melanoma of trunk Chronic headaches Hypertension Hx concussion (2008) Overweight Hx tobacco Hx C. Diff (2011) [...] EXT: No edema. Labs: Recent Labs 07/27/16 0710 07/28/16 0727 07/29/16 0728 WBC 14.1* 15.2* 15.2* HGB 12.1 12.1 13.4 PLTS 537* 580* 609* Recent Labs 07/28/16 0727 07/28/16 2115 07/29/16 0728 SODIUM -- -- 136 K 3.4* 3.8 4.0 CHLORIDE -- -- 104 BICARB -- -- 20* BUN -- -- <10 CREATININE -- -- 0.57 Recent Labs 07/27/16 0710 07/29/16 0728 MG 1.9 1.6 Recent Labs 07/29/16 [...] PM 07/29/2016 Department of Internal Medicine Pager [phone] CAR UNLOADER Luda Diaz RN - 07/29/2016 1:58 PM CST O: stooling, abd pain Nausea D: Awake alert ind steady on feet. States no nausea since yesterday And stooling has slowed down andhas more cionsistency to stool apin is toleerable to non A: Tolerating diet Ate chn soup and toast for lunch R: Seems to be resolving issues w prednisone started yesterday Faye Joy APRN, CNP - 07/29/2016 9:43 AM CST [...] CORPUSCULAR VOLUME 89.9 07/29/201628 RDW 13.0 07/29/2016 07 PLATELET COUNT 609* 07/29/2016 0728 BMP last 24 hrs: Lab Results Component Value Date/Time CREATININE SERUM 0.57 07/29/2016 0728 LAB GLUCOSE 122* 07/29/2016 0728 CO2 20* 07/29/201628 CHLORIDE 104 07/29/2016 0728 POTASSIUM 4.0 07/29/2016 0728 SODIUM 136 07/29/2016 0728 BLOOD UREA NITROGEN [...] PM CST Patient leaving with hospital transport CAR UNLOADER Neelima Dunne RN - 07/28/2016 3:07 PM CST Patient in recovery Vital signs stable. Denies pain. Patient returning back to by hospital Transport. CAR UNLOADER Suzan Hernandez APRN, SIERRA - 07/28/2016 11:54 AM CST GASTROENTEROLOGY DAILY [...] colitis (07/25/2016) ?? Assessment: Likely the largest bellman driver of current symptoms on admission, although [...] to IV Fentanyl for improved pain control CAR UNLOADER Luda Diaz RN - 07/28/2016 10:13 AM CST O:nausea-emesis/ pain D: awake States has been throwing up frequently since 12n yesterday A: Reviewed mar To see she has been getting zofran q 4-6 hrs Pain meds q 2-3 hrs R: epaged dr for additional nausea med order CAR UNLOADER Asia Foreman MD - 07/28/2016 9:15 AM CST DAILY PROGRESS NOTE Subjective: main issues now is n/v Still has blood in stool, abd cramping waiting for flex sig later today Objective: BP 123/71 mmHg Pulse 102 Temp(Src) 36.8 ??C (98.2 ??F) (Oral) Resp 16 Wt 89.903 kg (198 lb 3.2 oz) SpO2 96% LMP (LMP Unknown) Intake/Output Summary (Last 24 hours) at 07/28/16914 Last data filed at 07/28/16 0652 Gross per 24 hour Intake 906 ml Output 0 ml Net 906 ml Gen: Alert and conversant, in NAD HEENT: anicteric sclera CARDIAC: RRR, LUNGS: CTA ABDOMEN: soft, , ND, positive BS, no G/R, still has mild TTP EXTREMITIES: no edema , Labs: Lab Results Component Value Date/Time WBC 13.5* 07/17/2016 0938 WHITE BLOOD CELL COUNT 15.2* 07/28/2016 0727 RBC 5.08 07/17/2016 0938 RED BLOOD CELL COUNT 4.06 07/28/2016 0727 HEMOGLOBIN 12.1 07/28/2016 0727 HEMOGLOBIN 15.7 07/17/2016 0938 HCT 43.7 07/17/2016 0938 HEMATOCRIT 36.7 07/28/2016 0727 MCV 86.0 07/17/2016 0938 MEAN CORPUSCULAR VOLUME 90.4 07/28/2016 0727 RDW 13.3 07/28/2016 0727 RDW 12.7 07/17/2016 0938 PLATELETS 439 07/17/2016 0938 PLATELET COUNT 580* 07/28/2016 07 Lab Results Component Value Date/Time CREATININE 0.61 [...] TBD Asia Foreman MD 07/28/2016, 3:06 PM CAR UNLOADER Keyla Rangel RN - 07/27/2016 11:09 PM [...] symptoms. Keyla Rangel RN 11:11 PM 07/27/2016 CAR UNLOADER Suzan Hernandez APRN, ANIMAL TRAINER SUPERVISOR - 07/27/2016 1:48 PM CST GASTROENTEROLOGY DAILY [...] colitis (07/25/2016) ?? Assessment: Likely the largest bellman driver of current symptoms ?? Plan: 1.?? Continue IV Flagyl, PO Vanco.?? She will need a prolonged Vanco taper on discharge as this is her second episode.? 2.?? Advance to BRAT 2 diet 3.?? Follow daily CBC 4.?? Trial simethicone and Bentyl for gas/cramping pain CAR UNLOADER Asia Foreman MD - 07/27/2016 8:55 AM [...] pt Asia Foreman MD 07/27/2016, 10:36 AM CAR UNLOADER Oz Lara RN - 07/26/2016 11:03 PM CST O: Patient Update D: Small, newsome-red stool x 2 this evening. A: Pt reported better pain relief than previous day. Tolerated orange and lemon ice sherbert for dinner. R: Will continue to monitor pain and stool output. Suzan Brownlee APRN, ANIMAL TRAINER SUPERVISOR - 07/26/2016 2:50 PM CST GASTROENTEROLOGY DAILY [...] difficile colitis (07/25/2016) Assessment: Likely the largest bellman driver of current symptoms Plan: 1. Continue [...] significant pathology. Continue supportive cares as above CAR UNLOADER Asia Foreman MD - 07/26/2016 11:15 AM [...] 0938 RED BLOOD CELL COUNT 3.93 07/26/2016 0712 HEMOGLOBIN 11.8 07/26/2016 0712 HEMOGLOBIN 15.7 07/17/2016 0938 HCT 43.7 07/17/2016 0938 HEMATOCRIT 35.3 07/26/2016 0712 MCV 86.0 07/17/2016 0938 MEAN CORPUSCULAR VOLUME 89.8 07/26/2016 0712 RDW 13.0 07/26/2016 0712 RDW 12.7 07/17/2016 [...] GI Asia Foreman MD 07/26/2016, 11:42 AM CAR UNLOADER Barb Modi RN - 07/26/2016 4:09 AM [...] monitor and provide comfort and safety measures. CAR UNLOADER Karina Wilson RN - 07/25/2016 7:31 PM CST The patient is here with abdomen pain.Fluids running.Pain medication given once.Alert very pleasant.Antibiotics started and given.Recent hiram 07-12-18.Npo now. CAR UNLOADER documented in this encounter Procedure Notes Eusebio [...] scope was passed under direct vision. The [id number] was introduced through the anus and advanced [...] stool output. Procedure Code(s): --- Professional --- 89679, Sigmoidoscopy, flexible; with biopsy, single or multiple [...] parts of digestive tract CPT copyright 2014 [employer]. All rights reserved. The codes documented in this report are preliminary and upon conference organizer review may be revised to meet current compliance requirements. Eusebio Mcmanus MD 07/28/2016 2:37:39 PM This document has been electronically signed. Number of Addenda: 0 Note Initiated On: 07/28/2016 1:40 PM Endoscopy Report CAR UNLOADER documented in this encounter Consult Notes Beth [...] available to assist should further needs arise. CAR UNLOADER Eusebio Mcmanus MD - 07/25/2016 3:40 PM CST Hospital Consultation Idania Moran 1975 MR# [id number] [facility]# [id number] Date of Admission: 07/25/2016 Date of Visit: [...] findings, and formation of a management plan. 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 FAMILY HISTORY: Negative for GI malignancy or [...] 8.2, BUN 15, creatinine 0.78, bicarb 24, osxpxrtmga19.6, WBC 16.7, platelets 611. C difficile PCR [...] to hemorrhagic complications. TOTAL TIME 75 MINUTES JCK:EAN C: CONFIRM #: [id number] CAR UNLOADER documented in this encounter ED Notes Milton [...] (HRC) [K92.1] Hematochezia [R10.30] Lower abdominal pain Jose Maradiaga, am serving as a scribe to document services personally performed by Dr. Chewbased on my observations and the provider's statements to me. 07/25/2016 [facility] Milton Chew MD 07/26/16 0911 CAR UNLOADER documented in this encounter Plan of Treatment Upcoming Encounters Date Type Specialty Care Team Description 05/12/2022 Hospital Encounter Chemo Therapy/Infusion Services 09/15/2022 Telemedicine Gastroenterology Eusebio Haines MD [address] [place] [address] documented as of this encounter Procedures Procedure Name Priority Date/Time Associated Comments Diagnosis BEDSIDE GLUCOSE Routine 07/30/2016 11:35 Results for this MONITOR POCT AM KILN CAR UNLOADER procedure are i n the results section. BEDSIDE GLUCOSE Routine 07/30/2016 8:15 Results f or this MONITOR POCT AM KILN CAR UNLOADER procedure are i n the results section. COMPLETE BLOOD Specified Time 07/30/2016 7:37 Results for this COUNT-NO DIFF AM KILN CAR UNLOADER procedure are in the results section. C-REACTIVE PROTEIN Specified Time 07/30/2016 7:37 Resu lts for this AM KILN CAR UNLOADER procedure are i n the results section. POTASSIUM Specified Time 07/30/2016 7:37 Results fo r this AM KILN CAR UNLOADER procedure are i n the results section. BEDSIDE GLUCOSE Routine 07/29/2016 9:36 Results f or this MONITOR POCT PM KILN CAR UNLOADER procedure are i n the results section. ANION GAP Specified Time 07/29/2016 7:28 Results fo r this AM KILN CAR UNLOADER procedure are i n the results section. BASIC METABOLIC Specified Time 07/29/2016 7:28 Results for this PANEL AM KILN CAR UNLOADER procedure are i n the results section. COMPLETE BLOOD Specified Time 07/29/2016 7:28 Results for this COUNT-NO DIFF AM KILN CAR UNLOADER procedure are in the results section. MAGNESIUM Specified Time 07/29/2016 7:28 Results fo r this AM KILN CAR UNLOADER procedure are i n the results section. C-REACTIVE PROTEIN Specified Time 07/29/2016 7:28 Resu lts for this AM KILN CAR UNLOADER procedure are i n the results section. POTASSIUM STAT 07/28/2016 9:15 Results for this PM KILN CAR UNLOADER procedure are i n the results section. C-REACTIVE PROTEIN STAT 07/28/2016 3:53 Result s for this PM KILN CAR UNLOADER procedure are i n the results section. ENDOSCOPY OBTAINED Routine 07/28/2016 3:04 Result s for this ANATOMICAL PATH PM KILN CAR UNLOADER procedure ar e in the results section. ENDOSCOPY, SIGMOID Routine 07/28/2016 1:40 Result s for this PM KILN CAR UNLOADER procedure are i n the results section. XR ABD FLAT AND Routine 07/28/2016 11:55 Results for this UPRIGHT AM KILN CAR UNLOADER procedure are i n the results section. COMPLETE BLOOD Specified Time 07/28/2016 7:27 Results for this COUNT-NO DIFF AM KILN CAR UNLOADER procedure are in the results section. POTASSIUM Specified Time 07/28/2016 7:27 Results fo r this AM KILN CAR UNLOADER procedure are i n the results section. SURGICAL PATH, PARK Routine 07/28/2016 6:00 Resul ts for this NICOLLET AM KILN CAR UNLOADER procedure are i n the results section. POTASSIUM Specified Time 07/27/2016 1:35 Results fo r this PM KILN CAR UNLOADER procedure are i n the results section. COMPLETE BLOOD Specified Time 07/27/2016 7:10 Results for this COUNT-NO DIFF AM KILN CAR UNLOADER procedure are in the results section. MAGNESIUM Specified Time 07/27/2016 7:10 Results fo r this AM KILN CAR UNLOADER procedure are i n the results section. POTASSIUM Specified Time 07/27/2016 7:10 Results fo r this AM KILN CAR UNLOADER procedure are i n the results section. POTASSIUM Specified Time 07/26/2016 4:55 Results fo r this PM KILN CAR UNLOADER procedure are i n the results section. MRSA CULTURE Routine 07/26/2016 4:06 Results for this PM KILN CAR UNLOADER procedure are i n the results section. THIOPURINE Specified Time 07/26/2016 2:23 Results fo r this METHYLTRANSFERASE, PM KILN CAR UNLOADER procedure are in RBC the results section. TSPOT TUBERCULOSIS Specified Time 07/26/2016 2:23 Resu lts for this TEST PM KILN CAR UNLOADER procedure are i n the results section. HEPATITIS B VALERIA, Specified Time 07/26/2016 2:23 Result s for this QUANTITATIVE PM KILN CAR UNLOADER procedure are i n the results section. HEP B SURFACE Specified Time 07/26/2016 2:23 Results f or this ANTIGEN, NO REFLEX PM KILN CAR UNLOADER procedure are in the results section. XR PORTABLE ABD FLAT Routine 07/26/2016 1:05 Resu lts for this PM KILN CAR UNLOADER procedure are i n the results section. ANION GAP Specified Time 07/26/2016 7:12 Results fo r this AM KILN CAR UNLOADER procedure are i n the results section. BASIC METABOLIC Specified Time 07/26/2016 7:12 Results for this PANEL AM KILN CAR UNLOADER procedure are i n the results section. COMPLETE BLOOD Specified Time 07/26/2016 7:12 Results for this COUNT-NO DIFF AM KILN CAR UNLOADER procedure are in the results section. MAGNESIUM Specified Time 07/26/2016 7:12 Results fo r this AM KILN CAR UNLOADER procedure are i n the results section. POTASSIUM Specified Time 07/26/2016 12:30 Results f or this AM KILN CAR UNLOADER procedure are i n the results section. MRSA CULTURE Routine 07/25/2016 5:20 Results for this PM KILN CAR UNLOADER procedure are i n the results section. CT ABD PELVIS W IV STAT 07/25/2016 12:09 Resul ts for this CONT ONLY PM KILN CAR UNLOADER procedure are i n the results section. C.DIFFICILE STAT 07/25/2016 11:13 Results for this TOXIN,MOLECULAR AM KILN CAR UNLOADER procedure ar e in DETECTION the results section. COMPLETE BLOOD STAT 07/25/2016 9:45 Results fo r this COUNT-W/DIFF AM KILN CAR UNLOADER procedure are i n the results section. DIFFERENTIAL STAT 07/25/2016 9:45 Results for this AM KILN CAR UNLOADER procedure are i n the results section. DRAW & HOLD - STAT 07/25/2016 9:44 Results for this INPATIENT ONLY AM KILN CAR UNLOADER procedure are in the results section. EMERGENCY CENTER STAT 07/25/2016 9:44 Results for this DRAW AND HOLD AM KILN CAR UNLOADER procedure are in the results section. ANION GAP STAT 07/25/2016 9:44 Results for this AM KILN CAR UNLOADER procedure are i n the results section. BASIC METABOLIC STAT 07/25/2016 9:44 Results f or this PANEL AM KILN CAR UNLOADER procedure are i n the results section. HCG,QUALITATIVE, STAT 07/25/2016 9:44 Results for this SERUM AM KILN CAR UNLOADER procedure ar e in the results section. documented in this encounter Results Bedside Glucose Monitor (07/30/2016 11:35 AM KILN CAR UNLOADER) P athologist Signature Bedside Blood 138 mg/dL PN SOFT Glucose Test Comment: Performed at [address] [place] [address] Specimen Anatomical Collection Method Collection Time Receive d Time (Source) Location / / Volume Laterality 07/30/2016 11:35 07/30/2016 AM KILN CAR UNLOADER 11:45 AM KILN CAR UNLOADER Robin De La Cruz MD LAB_1 Performing Organization Address City/State/ZIP Code Phon e Number PN SOFT [address] [place] [address] Bedside Glucose Monitor (07/30/2016 8:15 AM KILN CAR UNLOADER) P athologist Signature Bedside Blood 147 mg/dL PN SOFT Glucose Test Comment: Performed at [address] [place] [address] Specimen Anatomical Collection Method Collection Time Receive d Time (Source) Location / / Volume Laterality 07/30/2016 8:15 AM 7 8:20 KILN CAR UNLOADER AM KILN CAR UNLOADER Robin De La Cruz MD LAB_1 Performing Organization Address [facility] Phon e Number PN SOFT [address] [place] [address] Potassium (07/30/2016 7:37 AM KILN CAR UNLOADER) athologist Signature Potassium 3.7 3.5 - 5.2 PN SOFT mmol/L Specimen Anatomical Collection Method Collection Time Receive d Time (Source) Location / / Volume Laterality 07/30/2016 7:37 AM 7 7:40 KILN CAR UNLOADER AM KILN CAR UNLOADER Narrative PN SOFT - 07/30/2016 8:17 AM KILN CAR UNLOADER Performed at [address] [address] CLIA number [id number] Suzan Hernandez APRN, CNP LAB_1 Performing Organization Address [facility] Phon e Number PN SOFT [address] [place] [address] (ABNORMAL) C Reactive Protein (07/30/2016 7:37 AM KILN CAR UNLOADER) athologist [facility] CRP 3.8 (H) 0.0 - 0.5 PN SOFT mg/dL Specimen Anatomical Collection Method Collection Time Receive d Time (Source) Location / / Volume Laterality 07/30/2016 7:37 AM 7 7:40 KILN CAR UNLOADER AM KILN CAR UNLOADER Narrative PN SOFT - 07/30/2016 8:17 AM KILN CAR UNLOADER Performed at [address] [address] CLIA number [id number] Suzan Hernandez APRN, CNP LAB_1 Performing Organization Address [facility] Phon e Number PN SOFT [address] [place] [address] (ABNORMAL) Complete Blood Count-No Diff - Every AM (07/30/2016 7:37 AM KILN CAR UNLOADER) Patholo gist Method Time Signature White Blood [...] Volume Laterality 07/30/2016 7:37 AM 7 7:40 KILN CAR UNLOADER AM KILN CAR UNLOADER Narrative PN SOFT - 07/30/2016 7:46 AM KILN CAR UNLOADER Performed at [facility], [address] [place] [address] CLIA number [id number] Suzan Hernandez APRN, ANIMAL TRAINER SUPERVISOR LAB_1 Performing Organization Address [facility] Phon e Number PN SOFT [address] [place] [address] [phone] Bedside Glucose Monitor (07/29/2016 9:36 PM KILN CAR UNLOADER) athologist Signature Bedside Blood 224 mg/dL PN SOFT Glucose Test Comment: Performed at [address] [place] [address] Specimen Anatomical Collection Method Collection Time Receive d Time (Source) Location / / Volume Laterality 07/29/2016 9:36 PM 7 9:45 KILN CAR UNLOADER PM KILN CAR UNLOADER Robin De La Cruz MD LAB_1 Performing Organization Address [facility] Phon e Number PN SOFT [address] [place] [address] Magnesium (07/29/2016 7:28 AM KILN CAR UNLOADER) athologist Signature Magnesium 1.6 1.6 - 2.6 PN SOFT mg/dL Specimen Anatomical Collection Method Collection Time Receive d Time (Source) Location / / Volume Laterality 07/29/2016 7:28 AM 7 7:51 KILN CAR UNLOADER AM KILN CAR UNLOADER Narrative PN SOFT - 07/29/2016 8:30 AM KILN CAR UNLOADER Performed at [address] [address] CLIA number [id number] Suzan Hernandez APRN, CNP LAB_1 Performing Organization Address [facility] Phon e Number PN SOFT [address] [place] [address] Anion Gap (07/29/2016 7:28 AM KILN CAR UNLOADER) athologist Signature ANION GAP 12 0 - 16 mEq/L PN SOFT Specimen Anatomical Collection Method Collection Time Receive d Time (Source) Location / / Volume Laterality 07/29/2016 7:28 AM 7 7:51 KILN CAR UNLOADER AM KILN CAR UNLOADER Narrative PN SOFT - 07/29/2016 8:30 AM KILN CAR UNLOADER Performed at [address] [address] CLIA number [id number] Suzan Hernandez APRN, CNP LAB_1 Performing Organization Address [facility] Phon e Number PN SOFT [address] [place] [address] (ABNORMAL) C Reactive Protein (07/29/2016 7:28 AM KILN CAR UNLOADER) athologist Signature CRP 13.1 (H) 0.0 - 0.5 PN SOFT mg/dL Specimen Anatomical Collection Method Collection Time Receive d Time (Source) Location / / Volume Laterality 07/29/2016 7:28 AM 7 7:51 KILN CAR UNLOADER AM KILN CAR UNLOADER Narrative PN SOFT - 07/29/2016 8:30 AM KILN CAR UNLOADER Performed at [address] [address] CLIA number [id number] Suzan Hernandez APRN, CNP LAB_1 Performing Organization Address [facility] [facility] Phon e Number PN SOFT [address] [place] [address] (ABNORMAL) Complete Blood Count-No Diff - Every AM (07/29/2016 7:28 AM KILN CAR UNLOADER) Patholo gist Method Time Signature White Blood [...] Volume Laterality 07/29/2016 7:28 AM 7 7:51 KILN CAR UNLOADER AM KILN CAR UNLOADER Narrative PN SOFT - 07/29/2016 7:58 AM KILN CAR UNLOADER Performed at [facility], [address] [place] [address] CLIA number [id number] Suzan Hernandez COLLATERAL CLERK, ANIMAL TRAINER SUPERVISOR LAB_1 Performing Organization Address City/State/ZIP Code Phon e Number PN SOFT [address] [place] [address] (ABNORMAL) Basic Metabolic Panel (07/29/2016 7:28 AM KILN CAR UNLOADER) athologist Signature Creatinine 0.57 0.55 - PN [...] Volume Laterality 07/29/2016 7:28 AM 7 7:51 KILN CAR UNLOADER AM KILN CAR UNLOADER Narrative PN SOFT - 07/29/2016 8:30 AM KILN CAR UNLOADER Performed at [address] [address] CLIA number [id number] Suzan Hernandez APRN, ANIMAL TRAINER SUPERVISOR LAB_1 Performing Organization Address [facility] Phon e Number PN SOFT [address] [place] [address] Potassium (07/28/2016 9:15 PM KILN CAR UNLOADER) athologist Signature Potassium 3.8 3.5 - 5.2 PN SOFT mmol/L Specimen Anatomical Collection Method Collection Time Receive d Time (Source) Location / / Volume Laterality 07/28/2016 9:15 PM 7 9:20 KILN CAR UNLOADER PM KILN CAR UNLOADER Narrative PN SOFT - 07/28/2016 9:40 PM KILN CAR UNLOADER Performed at [address] [address] CLIA number [id number] Asia Foreman MD LAB_1 Performing Organization Address [facility] e Number PN SOFT [address] [place] [address] (ABNORMAL) C Reactive Protein (07/28/2016 3:53 PM KILN CAR UNLOADER) athologist Signature CRP 13.1 (H) 0.0 - 0.5 PN SOFT mg/dL Specimen Anatomical Collection Method Collection Time Receive d Time (Source) Location / / Volume Laterality 07/28/2016 3:53 PM 7 3:59 KILN CAR UNLOADER PM KILN CAR UNLOADER Narrative PN SOFT - 07/28/2016 4:26 PM KILN CAR UNLOADER Performed at [address] [address] CLIA number [id number] .Collection has been rescheduled by IBRIM at 07/28/2016 14:50. Reason: pt .out for endoscopy Suzan Hernandez APRN, ANIMAL TRAINER SUPERVISOR LAB_1 Performing Organization Address [facility] Code Phon e Number PN SOFT [address] [place] [address] Endoscopy Obtained Anatomical Path (07/28/2016 3:04 PM KILN CAR UNLOADER) athologist Signature Endo Tis Received PN SOFT Specimen Anatomical Collection Method Collection Time Receive d Time (Source) Location / / Volume Laterality 07/28/2016 3:04 PM 7 3:04 KILN CAR UNLOADER PM KILN CAR UNLOADER Narrative PN SOFT - 07/28/2016 3:04 PM KILN CAR UNLOADER Performed at [place] [address] [place] [address] CLIA number [id number] Suzan eSrgio David GRANT, ANIMAL TRAINER SUPERVISOR LAB_1 Performing Organization Address [facility] Phon e Number PN SOFT [address] [place] [address] Endoscopy, sigmoid (07/28/2016 1:40 PM KILN CAR UNLOADER) Specimen (Source) Anatomical Collection Method Collection Time Re ceived Time Location / / Volume Laterality 07/28/2016 1:40 PM KILN CAR UNLOADER Narrative GI (PROVATION) - 07/28/2016 1:40 PM KILN CAR UNLOADER Patient Name: Idania Moran Procedure Date: 07/28/2016 1:40 PM Date of : 1975 Admit Type: Outpatient Age: 41 Gender: Female Note Status: Finalized Attending MD: Eusebio Mcmanus MD Procedure: ? Flexible Sigmo idoscopy Indications: ? Generalized abd ominal pain, Diarrhea, ? Abnormal CT of the GI tract, Disease ? activity assessment of chronic ? ulcerativ e pancolitis Providers: ? Eusebio sterling MD, Kerry Briana Referring MD: ?Basia Castillo Medicines: ? Fentanyl 100 m icrograms IV, Midazolam ? 3 mg IV Complications: ? No immediate com plications. Procedure: ? After obtainin g informed consent, the ? scope was passed under direct vision. ? The -HQ 190L-20 was introduced ? through t juliet [...] Code(s): ?? --- Professional - -- ? 57120, Si gmoidoscopy, flexible; with ? biopsy, s [...] of ? digestive tract CPT copyright 2014 [employer]. All rights reserved. The codes documented in this report are preliminary and upon conference organizer review may be revised to meet current [...] scope was passed under direct vision. The [id number] was introduced through the anus and advanced [...] stool output. Procedure Code(s): --- Professional --- 24785, Sigmoidoscopy, flexible; with biopsy, single or multiple [...] parts of digestive tract CPT copyright 2014 [employer]. All rights reserved. The codes documented in this report are preliminary and upon conference organizer review may be revised to meet current compliance requirements. Eusebio Mcmanus MD 07/28/2016 2:37:39 PM This document has been electronically si gned. Number of Addenda: 0 Note Initiated On: 07/28/2016 1:40 PM Endoscopy Report Suzan Hernandez COLLATERAL CLERK, ANIMAL TRAINER SUPERVISOR PN GI PROCEDURE ORDERAB LES Performing Organization Address City/State/ZIP Code Phon e Number GI (PROVATION) GI (PROVATION) [place] XR Abd Flat And Upright (07/28/2016 11:55 AM KILN CAR UNLOADER) Anatomical Region Laterality Modality Abdomen Computed Radiography Specimen (Source) Anatomical Collection Method Collection Time Re ceived Time Location / / Volume Laterality 07/28/2016 11:40 AM KILN CAR UNLOADER Narrative 07/28/2016 11:59 AM KILN CAR UNLOADER COMPARISON: ??07/26/2016 FINDINGS: ??Two views were obtained. [...] bowel. No free air. Suzan Hernandez APRN, ANIMAL TRAINER SUPERVISOR RAD GD (ABNORMAL) Potassium (07/28/2016 7:27 AM KILN CAR UNLOADER) athologist Signature Potassium 3.4 (L) 3.5 - 5.2 PN SOFT mmol/L Specimen Anatomical Collection Method Collection Time Receive d Time (Source) Location / / Volume Laterality 07/28/2016 7:27 AM 7 8:24 KILN CAR UNLOADER AM KILN CAR UNLOADER Narrative PN SOFT - 07/28/2016 8:49 AM KILN CAR UNLOADER Performed at [address] [address] CLIA number [id number] Asai Foreman MD LAB_1 Performing Organization Address City/State/ZIP Code Phon e Number PN SOFT [address] [place] [address] [phone] (ABNORMAL) Complete Blood Count-No Diff - Every AM (07/28/2016 7:27 AM KILN CAR UNLOADER) [facility] Method Time Signature White Blood Cell [...] Volume Laterality 07/28/2016 7:27 AM 7 8:24 KILN CAR UNLOADER AM KILN CAR UNLOADER Narrative PN SOFT - 07/28/2016 8:30 AM KILN CAR UNLOADER Performed at [place] [address] [place] [address] CLIA number [id number] Asia Foreman MD LAB_1 Performing Organization Address City/State/ZIP Code Phon e Number PN SOFT [address] [place] [address] Pathology Report (07/28/2016 6:00 AM KILN CAR UNLOADER) [facility] Method Time Signature Path: FINAL SURGICAL PATHOLOGY REPORT PN SOFT Pathology #: [id number] ?Date Obtained: 07/28/2016 ? Date Received: 07/28/2016 [...] MICROSCOPIC DESCRIPTION: Microscopic examination performed. Performed at [facility] [address] Specimen Anatomical Collection Method Collection Time Receive d Time (Source) Location / / Volume Laterality COLON STRUCTURE / 07/28/2016 6:00 AM 08/2016 6:00 Unknown KILN CAR UNLOADER AM KILN CAR UNLOADER Suzan Hernandez APRN, CNP LAB_1 Performing Organization Address [facility] Phon e Number PN SOFT [address] [place] [address] Potassium (07/27/2016 1:35 PM KILN CAR UNLOADER) athologist Signature Potassium 3.9 3.5 - 5.2 PN SOFT mmol/L Specimen Anatomical Collection Method Collection Time Receive d Time (Source) Location / / Volume Laterality 07/27/2016 1:35 PM 7 1:39 KILN CAR UNLOADER PM KILN CAR UNLOADER Narrative PN SOFT - 07/27/2016 1:57 PM KILN CAR UNLOADER Performed at [address] [address] CLIA number [id number] Asia Foreman MD LAB_1 Performing Organization Address [facility] Phon e Number PN SOFT [address] [place] [address] Magnesium (07/27/2016 7:10 AM KILN CAR UNLOADER) athologist Signature Magnesium 1.9 1.6 - 2.6 PN SOFT mg/dL Specimen Anatomical Collection Method Collection Time Receive d Time (Source) Location / / Volume Laterality 07/27/2016 7:10 AM 7 7:45 KILN CAR UNLOADER AM KILN CAR UNLOADER Narrative PN SOFT - 07/27/2016 8:24 AM KILN CAR UNLOADER Performed at [address] [address] CLIA number [id number] Asia Foreman MD LAB_1 Performing Organization Address [facility] Phon e Number PN SOFT [address] [place] [address] Potassium (07/27/2016 7:10 AM KILN CAR UNLOADER) athologist Signature Potassium 3.6 3.5 - 5.2 PN SOFT mmol/L Specimen Anatomical Collection Method Collection Time Receive d Time (Source) Location / / Volume Laterality 07/27/2016 7:10 AM 7 7:45 KILN CAR UNLOADER AM KILN CAR UNLOADER Narrative PN SOFT - 07/27/2016 8:24 AM KILN CAR UNLOADER Performed at [address] [address] CLIA number [id number] Asia Foreman MD LAB_1 Performing Organization Address [facility] Phon e Number PN SOFT [address] [place] [address] [phone] (ABNORMAL) Complete Blood Count-No Diff - Every AM (07/27/2016 7:10 AM KILN CAR UNLOADER) [facility] gist Method Time Signature White Blood [...] Volume Laterality 07/27/2016 7:10 AM 7 7:45 KILN CAR UNLOADER AM KILN CAR UNLOADER Narrative PN SOFT - 07/27/2016 7:55 AM KILN CAR UNLOADER Performed at [address] [address] CLIA number [id number] Asia Foreman MD LAB_1 Performing Organization Address [facility] Phon e Number PN SOFT [address] [place] [address] Potassium (07/26/2016 4:55 PM KILN CAR UNLOADER) athologist Signature Potassium 3.7 3.5 - 5.2 PN SOFT mmol/L Specimen Anatomical Collection Method Collection Time Receive d Time (Source) Location / / Volume Laterality 07/26/2016 4:55 PM 7 5:30 KILN CAR UNLOADER PM KILN CAR UNLOADER Narrative PN SOFT - 07/26/2016 5:49 PM KILN CAR UNLOADER Performed at [address] [address] CLIA number [id number] Asia Foreman MD LAB_1 Performing Organization Address [facility] Phon e Number PN SOFT [address] [place] [address] MRSA Screen Culture (07/26/2016 4:06 PM KILN CAR UNLOADER) [facility] Method Time Signature Source Nares PN SOFT Site PN SOFT Culture Mrsa No Methicillin PN SOFT Screen Resistant Staph aureus Isolated Specimen (Source) Anatomical Collection Method Collection Time Re ceived Time Location / / Volume Laterality 07/26/2016 4:06 PM KILN CAR UNLOADER Narrative PN SOFT - 07/27/2016 4:51 PM KILN CAR UNLOADER Performed at [address] [address], CLIA Number [id number] Asia Foreman MD LAB_1 Performing Organization Address [facility] Phon e Number PN SOFT [address] [place] [address] Hepatitis B Valeria, Quantitative (07/26/2016 2:23 PM KILN CAR UNLOADER) [facility] Method Time Signature Hep B Surf Ab Reactive Nonreactive PN SOFT Hep B Ab Quant >1,000 mIU/mL PN SOFT Specimen Anatomical Collection Method Collection Time Receive d Time (Source) Location / / Volume Laterality 07/26/2016 2:23 PM 7 2:29 KILN CAR UNLOADER PM KILN CAR UNLOADER Narrative PN SOFT - 07/26/2016 3:14 PM KILN CAR UNLOADER Performed at [address] [address] CLIA number [id number] Suzan Hernandez APRN, ANIMAL TRAINER SUPERVISOR LAB_1 Performing Organization Address [facility] Phon e Number PN SOFT [address] [place] [address] Thiopurine Methyltransferase, RBC (07/26/2016 2:23 PM KILN CAR UNLOADER) [facility] Method Time Signature Thiopurine 24.2 24.0 [...] Test developed and characteristics deter mined by [employer]. See Compliance Statement B : [email or web address] Performed by [employer], [address] [place] [id number] [email or web address], Romulo Pritchett MD - Lab . Director Specimen Anatomical Collection Method Collection Time Receive d Time (Source) Location / / Volume Laterality 07/26/2016 2:23 PM 7 2:29 KILN CAR UNLOADER PM KILN CAR UNLOADER Narrative PN SOFT - 08/01/2016 4:41 PM KILN CAR UNLOADER Performed at [employer] [address] [place] [address] CLIA number [id number] Suzan Hernandez APRN, ANIMAL TRAINER SUPERVISOR LAB_1 Performing Organization Address City/State/ZIP Code Phon e Number PN SOFT [address] [place] [address] Hepatitis B Surf Ag (07/26/2016 2:23 PM KILN CAR UNLOADER) [facility] Method Time Signature Hep B Surf Ag Nonreactive Nonreactive PN SOFT Specimen Anatomical Collection Method Collection Time Receive d Time (Source) Location / / Volume Laterality 07/26/2016 2:23 PM 7 2:29 KILN CAR UNLOADER PM KILN CAR UNLOADER Narrative PN SOFT - 07/26/2016 3:14 PM KILN CAR UNLOADER Performed at [facility], [address] [place] [address] CLIA number [id number] Suzan Hernandez APRN, [place] LAB_1 Performing Organization Address City/State/ZIP Code Phon e Number PN SOFT [address] [place] [address] [phone] TSPOT Tuberculosis Test (07/26/2016 2:23 PM KILN CAR UNLOADER) athologist Signature T SPOT TB Negative PN [...] Volume Laterality 07/26/2016 2:23 PM 7 2:28 KILN CAR UNLOADER PM KILN CAR UNLOADER Narrative PN SOFT - 07/28/2016 6:23 PM KILN CAR UNLOADER Performed at [facility] [place] [address] CLIA number [id number] Suzan Hernandez APRN, ANIMAL TRAINER SUPERVISOR LAB_1 Performing Organization Address City/[facility]/ZIP Code Phon e Number PN SOFT [address] [place] [address] [phone] XR Portable Abd Flat (07/26/2016 1:05 PM KILN CAR UNLOADER) Anatomical Region Laterality Modality Abdomen Computed Radiography Specimen (Source) Anatomical Collection Method Collection Time Re ceived Time Location / / Volume Laterality 07/26/2016 12:31 PM KILN CAR UNLOADER Narrative 07/26/2016 1:11 PM KILN CAR UNLOADER COMPARISON: ??CT abdomen and pelvis 07/25/2016, radiograph [...] 6 lumbar type vertebrae. Suzan Hernandez APRN, ANIMAL TRAINER SUPERVISOR RAD PORTABLE (ABNORMAL) Magnesium (07/26/2016 7:12 AM KILN CAR UNLOADER) athologist Signature Magnesium 1.4 (L) 1.6 - 2.6 PN SOFT mg/dL Specimen Anatomical Collection Method Collection Time Receive d Time (Source) Location / / Volume Laterality 07/26/2016 7:12 AM 7 7:15 KILN CAR UNLOADER AM KILN CAR UNLOADER Narrative PN SOFT - 07/26/2016 11:04 AM KILN CAR UNLOADER Performed at [facility], [address] [facility], [place] [address] CLIA number [id number] Asia Foreman MD LAB_1 Performing Organization Address City/[facility]/ZIP Code Phon e Number PN SOFT [address] [place] [address] Anion Gap (07/26/2016 7:12 AM KILN CAR UNLOADER) athologist Signature ANION GAP 7 0 - 16 mEq/L PN SOFT Specimen Anatomical Collection Method Collection Time Receive d Time (Source) Location / / Volume Laterality 07/26/2016 7:12 AM 7 7:15 KILN CAR UNLOADER AM KILN CAR UNLOADER Narrative PN SOFT - 07/26/2016 8:00 AM KILN CAR UNLOADER Performed at [facility], [address] [place] [address] CLIA number [id number] Asia Foreman MD LAB_1 Performing Organization Address City/State/ZIP Code Phon e Number PN SOFT [address] [place] [address] (ABNORMAL) Basic Metabolic Panel (07/26/2016 7:12 AM KILN CAR UNLOADER) athologist Signature Creatinine Serum 0.77 0.55 - [...] Volume Laterality 07/26/2016 7:12 AM 7 7:15 KILN CAR UNLOADER AM KILN CAR UNLOADER Narrative PN SOFT - 07/26/2016 8:00 AM KILN CAR UNLOADER Performed at [address] [address] CLIA number [id number] Asia Foreman MD LAB_1 Performing Organization Address [facility] e Number PN SOFT [address] [place] [address] (ABNORMAL) Complete Blood Count-No Diff - Every AM (07/26/2016 7:12 AM KILN CAR UNLOADER) [facility] gist Method Time Signature White Blood [...] / / Volume Laterality 07/26/2016 7:12 AM 7:15 KILN CAR UNLOADER AM KILN CAR UNLOADER Narrative PN SOFT - 07/26/2016 7:20 AM KILN CAR UNLOADER Performed at [address] [address] CLIA number [id number] Asia Foreman MD LAB_1 Performing Organization Address [facility] e Number PN SOFT [address] [place] [address] (ABNORMAL) Potassium (07/26/2016 12:30 AM KILN CAR UNLOADER) athologist Signature Potassium 3.3 (L) 3.5 - 5.2 PN SOFT mmol/L Specimen Anatomical Collection Method Collection Time Receive d Time (Source) Location / / Volume Laterality 07/26/2016 12:30 07/26/2016 1:02 AM KILN CAR UNLOADER AM KILN CAR UNLOADER Narrative PN SOFT - 07/26/2016 1:16 AM KILN CAR UNLOADER Performed at [address] [place] [address] CLIA number [id number] Asia Foreman MD LAB_1 Performing Organization Address City/State/ZIP Code Phon e Number PN SOFT [address] [place] [address] MRSA Culture (07/25/2016 5:20 PM KILN CAR UNLOADER) [facility] gist Method Time Signature Source Nares PN SOFT Site PN SOFT Culture Mrsa No Methicillin PN SOFT Screen Resistant Staph aureus Isolated Specimen (Source) Anatomical Collection Method Collection Time Re ceived Time Location / / Volume Laterality 07/25/2016 5:20 PM KILN CAR UNLOADER Narrative PN SOFT - 07/26/2016 5:19 PM KILN CAR UNLOADER Performed at [address] [address], CLIA Number [id number] Asia Foreman MD LAB_1 Performing Organization Address [facility]/ZIP Code Phon e Number PN SOFT [address] [place] [address] CT Abd Pelvis W IV Cont Only (07/25/2016 12:09 PM KILN CAR UNLOADER) Anatomical Region Laterality Modality Abdomen, Pelvis Computed Tomography Specimen (Source) Anatomical Collection Method Collection Time Re ceived Time Location / / Volume Laterality 07/25/2016 11:55 AM KILN CAR UNLOADER Impressions 07/25/2016 12:23 PM KILN CAR UNLOADER IMPRESSION: ?? 1. Findings compatible with colitis may be secondary to the patient's history of ulcerative colitis although infectious colitis including pseudomembranous colitis could have a similar appearance. The di stribution would be atypical for ischemi c colitis. There is slightly greater involvement of the distal descending and sigmoid colon than on the prior study. Narrative 07/25/2016 12:23 PM KILN CAR UNLOADER COMPARISON: ??07/19/2016. TECHNIQUE: ??Images were obtained throug [...] (ABNORMAL) C.Difficile Toxin,Molecular Detection, (07/25/2016 11:13 AM KILN CAR UNLOADER) [facility] Method Time Signature Clostridium Positive (A) PN SOFT difficile PCR Comment: Reference Range: ??Negative Method description (GeneXpert): Rapid, real-time PCR assay to detect tcd B (the Clostridium difficile toxin B gene) in human liquid or soft stools. Specimen Anatomical Collection Method Collection Time Receive d Time (Source) Location / / Volume Laterality 07/25/2016 11:13 07/25/2016 AM KILN CAR UNLOADER 11:26 AM KILN CAR UNLOADER Narrative PN SOFT - 07/25/2016 12:25 PM KILN CAR UNLOADER Performed at [facility], [facility] [place] [address] CLIA number [id number] .Positive CDOPC posada d to and read back by Lucy Lanier RN EC,.07/25/2016,12:32, by [facility] Milton Chew MD LAB_1 Performing Organization Address [facility] Phon e Number PN SOFT [address] [place] [address] (ABNORMAL) Differential (07/25/2016 9:45 AM KILN CAR UNLOADER) [facility] Method Time Signature Absolute 12.4 (H) [...] Volume Laterality 07/25/2016 9:45 AM 7 9:56 KILN CAR UNLOADER AM KILN CAR UNLOADER Narrative PN SOFT - 07/25/2016 10:28 AM KILN CAR UNLOADER Performed at [address] [address] CLIA number [id number] Milton Chew MD LAB_1 Performing Organization Address [facility] Phon e Number PN SOFT [address] [place] [address] (ABNORMAL) CBC w/Diff (07/25/2016 9:45 AM KILN CAR UNLOADER) [facility] Method Time Signature White Blood Cell [...] Volume Laterality 07/25/2016 9:45 AM 7 9:56 KILN CAR UNLOADER AM KILN CAR UNLOADER Narrative PN SOFT - 07/25/2016 10:01 AM KILN CAR UNLOADER Performed at [address] [address] CLIA number [id number] Milton Chew MD LAB_1 Performing Organization Address [facility] Phon e Number PN SOFT [address] [place] [address] Test Screen Blood (07/25/2016 9:44 AM KILN CAR UNLOADER) athologist Signature Serum Negative PN SOFT Test [...] Volume Laterality 07/25/2016 9:44 AM 7 9:56 KILN CAR UNLOADER AM KILN CAR UNLOADER Narrative PN SOFT - 07/25/2016 10:09 AM KILN CAR UNLOADER Performed at [address] [address] CLIA number [id number] Milton Chew MD LAB_1 Performing Organization Address [facility] Phon e Number PN SOFT [address] [place] [address] Anion Gap (07/25/2016 9:44 AM KILN CAR UNLOADER) athologist Signature ANION GAP 10 0 - 16 mEq/L PN SOFT Specimen Anatomical Collection Method Collection Time Receive d Time (Source) Location / / Volume Laterality 07/25/2016 9:44 AM 7 9:56 KILN CAR UNLOADER AM KILN CAR UNLOADER Narrative PN SOFT - 07/25/2016 10:18 AM KILN CAR UNLOADER Performed at [address] [address] CLIA number [id number] Milton Chew MD LAB_1 Performing Organization Address [facility] Phon e Number PN SOFT [address] [place] [address] [phone] (ABNORMAL) Basic Metabolic Panel (07/25/2016 9:44 AM KILN CAR UNLOADER) athologist Signature Creatinine 0.78 0.55 - PN [...] Volume Laterality 07/25/2016 9:44 AM 7 9:56 KILN CAR UNLOADER AM KILN CAR UNLOADER Narrative PN SOFT - 07/25/2016 10:18 AM KILN CAR UNLOADER Performed at [address] [address] CLIA number [id number] Milton Chew MD LAB_1 Performing Organization Address [facility] Phon e Number PN SOFT [address] [place] [address] Draw & Hold - Inpatient Only: (07/25/2016 9:44 AM KILN CAR UNLOADER) athologist Signature Draw And Hold REC'D PN SOFT Specimen Anatomical Collection Method Collection Time Receive d Time (Source) Location / / Volume Laterality 07/25/2016 9:44 AM 7 9:56 KILN CAR UNLOADER AM KILN CAR UNLOADER Narrative PN SOFT - 07/25/2016 10:10 AM KILN CAR UNLOADER [place] [address] CLIA number [id number] Milton Chew MD PN BLOOD BANK ORDERS Performing Organization Address [facility] Phon e Number PN SOFT [address] [place] [address] Emergency Center Draw And Hold (07/25/2016 9:44 AM KILN CAR UNLOADER) athologist Signature Emergency Drawn PN SOFT Center Draw And Hold Extra Lavender Drawn PN SOFT Top Drawn Extra PST Top Drawn PN SOFT Drawn Extra SST Top Drawn PN SOFT Drawn Specimen Anatomical Collection Method Collection Time Receive d Time (Source) Location / / Volume Laterality 07/25/2016 9:44 AM 7 9:56 KILN CAR UNLOADER AM KILN CAR UNLOADER Narrative PN SOFT - 07/25/2016 10:23 AM KILN CAR UNLOADER Performed at [address] [address] CLIA number [id number] Milton Chew MD LAB_1 Performing Organization Address [facility] Phon e Number PN SOFT [address] [place] [address] documented in this encounter Visit Diagnoses Diagnosis Essential hypertension (HRC) - Primary Unspecified essential hypertension Ulcerative colitis with complication, un specified location (HRC) Hematochezia Blood in stool Lower abdominal pain Abdominal pain, other specified site C. difficile colitis Intestinal infection due to clostridium difficile Ulcerative rectosigmoiditis with rectal bleeding (HRC) Ulcerative colitis with rectal bleeding (HRC) Other ulcerative colitis C. difficile colitis Intestinal infection due to clostridium difficile HTN (hypertension) (HRC) Unspecified essential hypertension Triage [...] abdominal pain 02/01. R: Vitals. MD evaluation. CAR UNLOADER documented in this encounter Administered Medications Inactive Administered Medications - up to 3 most recent administrations Medication Order MAR Action Action Date Dose Rate Site 0.9% sodium chloride bolus 1,000 Started 07/25/2016 9:53 AM KILN CAR UNLOADER 1, 000 mL mL 1,000 mL, Intravenous, Administer over 1 Hours, ONCE, On Sun07/25/16 at 0945, For 1 dose dicyclomine (BENTYL) capsule 10 mg Given 07/27/2016 4:40 PM KILN CAR UNLOADER 10 mg 10 mg, Oral, QID PRN, Irritable Bowel, Starting on Sun07/27/16 at 1206, Until Sun07/30/16 at 1647 enoxaparin (LOVENOX) injection Given 07/28/2016 3:53 PM KILN CAR UNLOADER 40 m g Abdominal Tissue 40 mg 40 mg, Subcutaneous, Q24H, First dose on Sun07/28/16 at 1600, Until Discontinued fentaNYL (SUBLIMAZE) injection 25 mcg Given 07/29/2016 10:15 AM KILN CAR UNLOADER 25 mcg 25 mcg, Intravenous, Q2H PRN, Pain, Severe Pain (pain score 8-10), Starting on Sun07/28/16 at 1137, Until Sun07/30/16 at 1647, Caution: Look-alike, sound-alike medication. Given 07/29/2016 5:25 AM KILN CAR UNLOADER 25 mcg Given 07/28/2016 4:36 PM KILN CAR UNLOADER 25 mcg HYDROmorphone injectable 0.3-0.5 mg Given 07/28/2016 9:22 AM KILN CAR UNLOADER 0.5 mg 0.3-0.5 mg, Intravenous, Q2H PRN, [...] administration if needed. Given 07/28/2016 5:55 AM KILN CAR UNLOADER 0.5 mg Given 07/28/2016 2:08 AM KILN CAR UNLOADER 0.5 mg HYDROmorphone injectable 0.5-1 mg Given 07/25/2016 12:50 PM KILN CAR UNLOADER 0.5 mg 0.5-1 mg, Intravenous, PRN, Pain, Starting on Sun07/25/16 at 0925, Until Sun07/25/16 at 1424, For 5 hours, Please notify physician if pt requires >2mg Given 07/25/2016 10:25 AM KILN CAR UNLOADER 0.5 mg Given 07/25/2016 9:53 AM KILN CAR UNLOADER 0.5 mg insulin lispro (humALOG) injection Given 07/29/2016 10:42 PM KILN CAR UNLOADER 2 Units Right Arm vial Subcutaneous, 4 [...] injection 75 mL Given 07/25/2016 12:06 PM KILN CAR UNLOADER 75 mL 75 mL, Intravenous, ONCE, On Sun07/25/16 at 1230, For 1 dose, Radiology magnesium sulfate 2 g in dextrose 5 % 50 mL Started 07/26/2016 9:2 3 PM KILN CAR UNLOADER 2 g IVPB 2 g, Intravenous, Administer over 30 Minutes, Q6H (NON-STND), First dose (after last reorder) on Sun07/26/16 at 1230, For 2 doses, Give 2 g EVERY 6 HOURS X2 doses when condition is met. RN to NOTIFY Pharmacy to place scheduled medication order IF CONDITION is met. Started 07/26/2016 2:26 PM KILN CAR UNLOADER 2 g magnesium sulfate 2 g in dextrose 5 % 50 mL Started 07/27/2016 9:5 6 AM KILN CAR UNLOADER 2 g IVPB 2 g, Intravenous, Administer over 30 Minutes, ONCE, On Tamela 07/27/16 at 1000, For 1 dose, GIVE ONCE if condition is met. Mg=1.9 magnesium sulfate 2 g in dextrose 5 % 50 mL Started 07/29/2016 1:4 9 PM KILN CAR UNLOADER 2 g IVPB 2 g, Intravenous, Administer over 30 Minutes, ONCE, On 07/29/16 at 1145, For 1 dose, GIVE ONCE if condition is met. RN to NOTIFY Pharmacy to place scheduled medication order IF CONDITION is met mesalamine (LIALDA) enteric coated tablet 4.8 Given 12:20 PM KILN CAR UNLOADER 4.8 g g 4.8 g, Oral, QDAY WITH MEAL, First dose on Sun07/30/16 at 1100, Until Discontinued, Tablet should be swallowed whole methylPREDNISolone sodium succinate Given 07/30/2016 8:30 AM KILN CAR UNLOADER 20 mg (SOLU-medrol) injection 20 mg 20 mg, Intravenous, Q8H, First dose on Sun07/28/16 at 1500, Until Discontinued, Recommend blood glucose testing QID after initiation of steroids. Given 07/30/2016 12:20 AM KILN CAR UNLOADER 20 mg Given 07/29/2016 3:50 PM KILN CAR UNLOADER 20 mg metroNIDAZOLE (aka FLAGYL) 500mg in NaCl Started 07/25/2016 1:43 P M KILN CAR UNLOADER 500 mg 0.9% 100 mL IVPB 500 mg, Intravenous, Administer over 60 Minutes, ONCE, On Sun07/25/16 at 1245, For 1 dose, Caution: Look-alike, sound-alike medication. metroNIDAZOLE (aka FLAGYL) 500mg in NaCl Started 07/28/2016 5:52 A M KILN CAR UNLOADER 500 mg 0.9% 100 mL IVPB 500 mg, Intravenous, Administer over 60 Minutes, Q8H (NON-STND), First dose on Sun07/25/16 at 2100, Caution: Look-alike, sound-alike medication. Started 07/27/2016 10:20 PM KILN CAR UNLOADER 500 mg Started 07/27/2016 1:38 PM KILN CAR UNLOADER 500 mg midazolam (VERSED) injection 0.5-2 mg Given 07/28/2016 2:40 PM KILN CAR UNLOADER 3 mg 0.5-2 mg, Intravenous, PRN, Sedation, Starting on Sun07/28/16 at 1417, Until Sun07/28/16 at 1444, Administer in 0.5-2 mg increments as directed by endoscopy procedure MD up to a total of 8 mg. multivitamin (THERAGRAN) tablet 1 Tab Given 07/30/2016 8:31 AM KILN CAR UNLOADER 1 Tablet 1 Tablet, Oral, DAILY, First dose on Sun07/25/16 at 1645, Until Discontinued Given 07/29/2016 8:39 AM KILN CAR UNLOADER 1 Tablet Given 07/27/2016 8:04 AM KILN CAR UNLOADER 1 Tablet NaCl 0.9%-KCl 20 mEq/liter infusion Started 07/29/2016 3:50 PM KILN CAR UNLOADER 75 mL/hr Intravenous, at 75 mL/hr, CONTINUOUS, Starting on Sun07/25/16 at 1645 New Bag Started 07/29/2016 1:22 AM KILN CAR UNLOADER 75 mL/hr Started 07/28/2016 5:52 AM KILN CAR UNLOADER 75 mL/hr norethindrone-eth estradiol Self Administered 07/30/2016 8:00 AM KILN CAR UNLOADER 1 Tablet (NORINYL,ORTHONOVUM) 1-35 MG-MCG tablet 1 Tab 1 Tablet, Oral, DAILY, First dose on Sun07/26/16 at 0800, Patient must use own supply. Given 07/29/2016 8:00 AM KILN CAR UNLOADER 1 Tablet Self Administered 07/26/2016 8:00 AM KILN CAR UNLOADER 1 Tablet ondansetron (ZOFRAN) injection 4 mg Given 07/28/2016 5:54 AM KILN CAR UNLOADER 4 mg 4 mg, Intravenous, Q4H PRN, Nausea, Vomiting, Starting on Sun07/25/16 at 1615, Until Sun07/30/16 at 1647 Given 07/28/2016 2:08 AM KILN CAR UNLOADER 4 mg Given 07/27/2016 9:27 PM KILN CAR UNLOADER 4 mg ondansetron (ZOFRAN-ODT) disintegrating tablet Given 0 07/28/2016 8:19 AM KILN CAR UNLOADER 4 mg 4 mg 4 mg, Oral, Q8H PRN, Nausea, Starting on Sun07/25/16 at 1615, Until Sun07/30/16 at 1647, Do not swallow tablet whole. Allow to dissolve on the tongue without chewing. Use First if able to take PO potassium chloride (K-DARRION) packet 40 mEq Given 07/27/2016 9:56 AM KILN CAR UNLOADER 40 mEq 40 mEq, Oral, ONCE, On Tamela 07/27/16 at 0930, For 1 dose, Recheck serum potassium 3 to 4 hours after replacement and repeat protocol if indicated. potassium chloride (KCL) 10 mEq, lidocaine Started 07/25 8:12 PM KILN CAR UNLOADER 10 mEq 1% 2 mL in dextrose 5 % 100 mL IVPB 10 mEq, Intravenous, Administer over 60 Minutes, Q1H, First dose on Sun07/25/16 at 1830, For 2 doses, Recheck serum potassium 2 hours after completing replacement and repeat protocol as indicated. Started 07/25/2016 6:45 PM KILN CAR UNLOADER 10 mEq potassium chloride (KCL) 10 mEq, lidocaine Started 07/26 4:24 AM KILN CAR UNLOADER 10 mEq 1% 2 mL in dextrose 5 % 100 mL IVPB 10 mEq, Intravenous, Administer over 60 Minutes, Q1H, First dose on Sun07/26/16 at 0200, For 3 doses, Recheck serum potassium 2 hours after completing replacement and repeat protocol as indicated. Started 07/26/2016 3:24 AM KILN CAR UNLOADER 10 mEq Started 07/26/2016 2:10 AM KILN CAR UNLOADER 10 mEq potassium chloride (KCL) 10 mEq, lidocaine Started 07/26 11:30 AM KILN CAR UNLOADER 10 mEq 1% 2 mL in dextrose 5 % 100 mL IVPB 10 mEq, Intravenous, Administer over 60 Minutes, Q1H, First dose on Sun07/26/16 at 0830, For 3 doses, Recheck serum potassium 2 hours after completing replacement and repeat protocol as indicated. Started 07/26/2016 10:20 AM KILN CAR UNLOADER 10 mEq Started 07/26/2016 9:01 AM KILN CAR UNLOADER 10 mEq potassium chloride (KCL) 10 mEq, lidocaine Started 07/28 12:28 PM KILN CAR UNLOADER 10 mEq 1% 2 mL in dextrose 5 % 100 mL IVPB 10 mEq, Intravenous, Administer over 60 Minutes, Q1H, First dose on Sun07/28/16 at 1030, For 3 doses, Recheck serum potassium 2 hours after completing replacement and repeat protocol as indicated. Started 07/28/2016 11:25 AM KILN CAR UNLOADER 10 mEq potassium chloride (KCL) 10 mEq, lidocaine Started 07/28 3:47 PM KILN CAR UNLOADER 10 mEq 1% 2 mL in dextrose 5 % 100 mL IVPB 10 mEq, Intravenous, Administer over 60 Minutes, ONCE, On Sun07/28/16 at 1315, For 1 dose prochlorPERAZINE (COMPAZINE) injection 1 0 mg Given 07/28/2016 9:36 PM KILN CAR UNLOADER 10 mg 10 mg, Intravenous, Q6H PRN, Nausea, Vomiting, Starting on Sun07/28/16 at 0827, Until Sun07/30/16 at 1647, Try Zofran, then prochlorperazine, then promethazine for nausea/vomiting Caution: Look-alike, sound-alike medication. Given 07/28/2016 12:26 PM KILN CAR UNLOADER 5 mg Given 07/28/2016 9:20 AM KILN CAR UNLOADER 5 mg simethicone (GENASYME) oral liquid 40 mg Given 07/27/2016 12:34 PM KILN CAR UNLOADER 40 mg 40 mg, Oral, QID PRN, Gas Pain, Starting on Sun07/27/16 at 1050, Until Sun07/30/16 at 1647 simethicone (MYLICON) chewable tablet 80 mg Given 07/28/2016 6:07 AM KILN CAR UNLOADER 80 mg 80 mg, Oral, QID PRN, Gas Pain, Starting on Sun07/27/16 at 1206, Until Sun07/30/16 at 1647 Given 07/27/2016 9:27 PM KILN CAR UNLOADER 80 mg sodium chloride 0.9% 0.9 % injection Given 07/25/2016 9:52 AM KILN CAR UNLOADER 10 mL Starting on Sun07/25/16 at 0909, Until Sun07/25/16 at 0952, For 1 dose, Cat Chery : cabinet override sodium chloride 0.9% injection 10 mL Given 07/25/2016 12:30 PM KILN CAR UNLOADER 10 mL 10 mL, Intravenous, ONCE, On Sun07/25/16 at 1230, For 1 dose, Radiology sodium chloride 0.9% injection 10-60 mL Given 07/30/2016 8:31 AM KILN CAR UNLOADER 10 mL 10-60 mL, Intravenous, BID, First [...] Device Users Guide. Given 07/29/2016 8:43 PM KILN CAR UNLOADER 10 mL Given 07/26/2016 8:58 AM KILN CAR UNLOADER 10 mL sodium chloride 0.9% injection 10-60 mL Given 07/30/2016 12:21 AM KILN CAR UNLOADER 10 mL 10-60 mL, Intravenous, PRN, Line [...] Device Users Guide. Given 07/29/2016 5:54 PM KILN CAR UNLOADER 10 mL Given 07/29/2016 3:50 PM KILN CAR UNLOADER 10 mL sodium phosphate (FLEET) enema 1 Enema Given 07/28/2016 12:45 PM KILN CAR UNLOADER 1 Enema 1 Enema, Rectal, ONCE PRN, Other, For Bowel Prep, Starting on Sun07/28/16 at 1224, Until Sun07/28/16 at 1245, For 1 dose, Administer 45 minutes prior to procedure, Pre-Procedure sodium phosphate (FLEET) enema 1 Enema Given 07/28/2016 1:27 PM KILN CAR UNLOADER 1 Enema 1 Enema, Rectal, ONCE PRN, Constipation, Starting on Sun07/28/16 at 1323, Until Sun07/28/16 at 1327, For 1 dose temazepam (RESTORIL) capsule 15 mg Given 07/29/2016 10:42 PM KILN CAR UNLOADER 15 mg 15 mg, Oral, HS PRN, Sleep, Starting on Sun07/25/16 at 1615, Until Sun07/30/16 at 1647 Given 07/28/2016 9:36 PM KILN CAR UNLOADER 15 mg Given 07/27/2016 9:27 PM KILN CAR UNLOADER 15 mg vancomycin (VANCOCIN) oral solution 125 mg Given 07/25/2016 1:44 PM KILN CAR UNLOADER 125 mg 125 mg, Oral, ONCE, On Sun07/25/16 at 1300, For 1 dose, Refrigerated Product. vancomycin (VANCOCIN) oral solution 125 mg Given 07/25/2016 8:01 PM KILN CAR UNLOADER 125 mg 125 mg, Oral, QID, First dose on Sun07/25/16 at 1630, Refrigerated Product. Given 07/25/2016 5:58 PM KILN CAR UNLOADER 125 mg vancomycin (VANCOCIN) oral solution 250 mg Given 07/30/2016 11:33 AM KILN CAR UNLOADER 250 mg 250 mg, Oral, QID, First dose (after last modification) on Sun07/26/16 at 0800, Refrigerated Product. Given 07/30/2016 8:32 AM KILN CAR UNLOADER 250 mg Given 07/29/2016 8:43 PM KILN CAR UNLOADER 250 mg documented in this encounter Active and Recently Administered Medications Times are shown in KILN CAR UNLOADER. Scheduled Medication Order 07/28/2016 07/29/2016 07/30/2016 enoxaparin [...] DAILY SLIDING SCAL E, First dose on 07/29/16 at 2200, For Blood Glucose: 150 to [...] Provider: Magdiel Gomez)2338 (Given - Provider: Meena Tatum, MARIO) 0800 (Given - Provider: Pearl rangel RN)1550 [...] Diaz RN)1129 (Canceled Entry - Provider: Luda Diaz RN)1221 (Infused - Provider: Luda Diaz, MARIO)1228 (Started - Provider: Luda Diaz, MARIO)1328 (Infused - Provider: Luda Diaz, MARIO) 10 mEq, Intravenous, for 60 Minutes, Q1H , First dose on Sun07/28/16 at 1030, For 3 doses, Recheck serum potassium 2 hours after completing replacement and repeat protocol as indicated. potassium chloride (KCL) 10 mEq, lidocai ne 1% 2 mL in dextrose 5 % 100 mL IVPB (COMPLETED) 1547 (Started - Provider: Magdiel bauman)1647 (Infused - Provider: Magdiel Gomez) 10 mEq, Intravenous, for 60 Minutes, ONCE, Sun07/28/16 at 1315, F or 1 dose sodium chloride 0.9% injection 10-60 mL (CANCELED) 080 0 (Due)1999 (Not Given - Provider: Magdiel Gomez - Reason: Order parameters not met) 0800 (Not Given - Provider: Pearl Nuno RN - Reason: Other (Enter Reason in Comment Area))2042 (Given - Provider: Magdiel Gmoez) 0831 (Given - Provider: Pearl Nuno, MARIO) [...] Luda Diaz, MARIO)1221 (Given - Provider: Luda Diaz RN)1552 (Given - Provider: Magdiel Gomez)2037 (Given - Provider: Magdiel Lan Namgyal) 0800 (Given - Provider: Pearl Nuno, MARIO)1211 (Given - Provider: Luda Diaz RN)1544 (Given - Provider: Magdiel Gomez)2043 (Given - Provider: Magdiel Gomez) 0832 (Given - Provider: Pearl rangel RN)1133 (Given - Provider: Pearl Nuno RN) 250 mg, Oral, QID, First dose on Sun07/26/16 at 0800, Refrigerate d Product. Continuous Medication Order 07/28/2016 07/29/2016 07/30/2016 NaCl 0.9%-KCl 20 mEq/liter infusion (CANCELED) 0552 (S tarted - Provider: Loulou Eason RN) 0122 (New Bag Started - Provider: Cameron Tatum RN)1550 (Started - Provider: Magdiel Gomez) Intravenous, at 75 mL/hr, CONTINUOUS, Starting Sun07/25/16 at 16 45 PRN Medication Order 07/28/2016 07/29/2016 07/30/2016 acetaminophen (TYLENOL) tablet 650 mg 650 mg, Oral, Q6H PRN, Other, Mild Pain (pain score 1-4), Starting Sun07/25/16 at 1615 fentaNYL (SUBLIMAZE) injection 25 mcg (CANCELED) 1439 (Given - Provider: Kerry Warren, MARIO)1636 (Given - Provider: Magdiel Gomez) 0525 (Given - Provider: Meena Tatum RN)1015 (Given - Provider: Bernie Staples RN) 25 mcg, Intravenous, Q2H PRN, Pain, Geovanna re Pain (pain score 8-10), Starting Sun07/28/16 at 1137, Caution: Look-alike, sound-alike medication. HYDROmorphone injectable 0.3-0.5 mg (CANCELED) 0208 (G iven - Provider: Loulou Eason RN)0555 (Given - Provider: Loulou Eason RN)0922 (Given - Provider: Luda Diaz, MARIO) 0.3-0.5 mg, Intravenous, Q2H PRN, Other, Severe [...] mg (CANCELED) 1440 (Given - Provider: Kerry Warren, MARIO) 0.5-2 mg, Intravenous, PRN, Sedation, St arting [...] Luda Diaz, MARIO)2136 (Given - Provider: Magdiel aCnasgyal) 10 mg, Intravenous, Q6H PRN, Nausea, Vom iting, Starting Sun07/28/16 at 0827, Try Zofran, then prochlorperazine, then promethazine for nausea/vomiting Caution: Look-alike, sound-alike medication. simethicone (MYLICON) chewable tablet 80 mg (CANCELED) 0607 (Given - Provider: Loulou Eason, RN) 80 mg, Oral, QID PRN, Gas Pain, Starting Tamela 07/27/16 at 1206 sodium chloride 0.9% injection 10-60 mL (CANCELED) 154 8 (Given - Provider: Magdiel Gomez)1636 (Given - Provider: Magdiel Gomez)2136 (Given - Provider: Magdiel Gomez) 1550 (Given - Provider: Magdiel Gomez )1754 (Given - Provider: Axel Mariee RN) 0021 (Given - Provider: Leidy medina, RN) 10-60 mL, Intravenous, PRN, Line Patency [...] dose temazepam (RESTORIL) capsule 15 mg (CANCELED) 2136 (Gi chris - Provider: Magdiel Gomez) 2242 (Given - Provider: Chokie P Namgyal) 15 mg, Oral, HS PRN, Sleep, Starting 07/25/16 at 1615 documented in this encounter Additional Health Concerns Infection Onset Date Last Indicated Resolved Time C-Diff - Enteric (Retired) 07/26/2016 07/26/201607/30 2:47 PM KILN CAR UNLOADER documented as of this encounter Care Teams Mds Rn Relationship Specialty Start Date End Date Sheeba Castillo, COLLATERAL CLERK, ANIMAL TRAINER SUPERVISOR PCP - General Nurse Practitioner 07/20/16 [address] MAGD[place]ENA Dinh [id number] documented as of this encounter
--- OUTSIDE RECORDS SUMMARY | 2022-05-09 19:26 | XMS_ITS | Encounter Summary ---
:1975 Author Organization [facility] Address [address] [place] [address] Care Team Providers Name Role Phone Sheeba Castillo APRN, CNP Primary Care Provider [phone] Reason for Visit Reason Onset Date Comments APPOINTMENT REQUEST 07/20/2016 Encounter Details Date Type Department Care Team Description 07/20/2016 Telephone [facility]ty [facility] [address], APPOINTMENT REQUEST Gastroenterology [facility] [address] [place] [id number] [phone] Social History Tobacco Use Types Packs/Day Years Used Date Smoking Tobacco: Former Cigarettes 0.3 15 Quit : 04/25/2015 Smokeless Tobacco: Never Alcohol Use Standard Drinks/Week Comments Yes 0 (1 standard drink = 0.6 oz pure alcoho l) rarely Sex Assigned at Date Recorded Female 05/09/2021 7:19 PM SLD EDUCATIONAL AIDE documented as of this encounter Nursing Notes Eileen Bernabe, [facility] - 07/21/2016 7:17 AM CST Please see previous phone note 07/13. Had cholecystectomy, surgeon paged GI with info that a fair amount of edema was seen in area of hepatic flexure. At that time, day of/after surgery, she did not have symptoms, although she had had sx several days prior to surgery. Appears to support that her current sx are due to flare, with negative stools. EDUCATIONAL AIDE Charles Duran RN - 07/20/2016 4:29 PM CST Patient notified. EDUCATIONAL AIDE Eduardo Vasquez MD - 07/20/2016 3:52 PM CST Zofran Rx written EDUCATIONAL AIDE Sanjana Sumner RN - 07/20/2016 3:31 PM CST Reviewed recommendations with pt. Pt states last time she used Prednisone, she was prescribed Zofranalso. Please sent in Rx. Pt will call on Sunday with update, at that time will need to schedule follow up appointment. Nurses: Pt is now working at [facility] [employer] and gets done at 3 pm so would like to switch care to DEPARTMENT SALES MANAGER Gi. Eduardo Wong MD - 07/20/2016 3:13 PM CST Looks like flare of colitis. Please ask her to start 40mg prednisone/day and arrange appt for CRM FUNCTIONAL ANALYST forearly next week. Rx. sent EDUCATIONAL AIDE Sanjana Sumner RN - 07/20/2016 3:01 PM CST Preliminary stool culture negative. Angel Lopez RN - 07/20/2016 9:51 AM CST Pt [...] stool culture comes back. [facility] ([facility] in [facility] is correct for any new Rx. EDUCATIONAL AIDE Sanjana Sumner RN - 07/20/2016 9:33 AM [...] more of an infectious cause of this.?? EDUCATIONAL AIDE documented in this encounter Plan of Treatment Upcoming Encounters Date Type Specialty Care Team Description 05/12/2022 Hospital Encounter Chemo Therapy/Infusion Services 09/15/2022 Telemedicine Gastroenterology Eusebio Haines MD [address] [place], [place] [id number] documented as of this encounter Visit Diagnoses Not on filedocumented in this encounter Care Teams Upholstery Estimator Relationship Specialty Start Date End Date Sheeba Castillo, JEWELRY DIPPER, DESIGN CELL ENGINEER PCP - General Nurse Practitioner 07/20/16 [id number] MAGDALENA Dinh [id number] documented as of this encounter
--- OUTSIDE RECORDS SUMMARY | 2022-05-09 19:26 | XMS_ITS | Encounter Summary ---
:1975 Author Organization [facility] Address [address] [place] [address] Care Team Providers Name Role Phone Sheeba Castillo ALLEY TENDER, JUVENILE JUSTICE OFFICER Primary Care Provider [phone] Reason for Visit Reason Onset Date Comments COMPLAINTS, NOS 07/24/2016 Encounter Details Date Type Department Care Team Description 07/24/2016 Telephone [facility] [address]abe, COMPLAINTS, NOS Gastroenterology ALLEY TENDER, JUVENILE JUSTICE OFFICER [address] [place] [address]126 [phone] Social History Tobacco Use Types Packs/Day Years Used Date Smoking Tobacco: Former Cigarettes 0.3 15 Quit : 04/25/2015 Smokeless Tobacco: Never Alcohol Use Standard Drinks/Week Comments Yes 0 (1 standard drink = 0.6 oz pure alcoho l) rarely Sex Assigned at Date Recorded Female 05/09/2021 7:19 PM RETAIL SALES TEAMMATE documented as of this encounter Nursing Notes Jossie Perez RN - 07/25/2016 11:17 AM CST Patient calling back stating that she has been admitted to [facility] for evaluation and treatment. Encouraged patient to call with updates, questions or concerns. [place] SALES TEAMMATE Angel Hernandez RN - 07/25/2016 9:18 AM CST Left message to call back. Looking at her notes there is an ER triage assessment signed on 08 on 07/25. IT looks like she may already be at the ER. Eileen Parsons APRN, CNP - 07/24/2016 5:[address] Vasquez asked last week that she be seen early this week by CASE OPERATOR. If she is at [facility], she could beseen there. That would be best so that we can evaluate her carefully. The only alternatives to what she is doing is pred 60 and admission. If no spots, then she should be seen in [facility] ED for labs,etc and evaluation for admission. [...] OTCs? Prednisone 40 mg daily started last . Pt has Canasa suppository and wondering if should take? 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. Note sent Keeley Bernabe and Dr Vasquez. [place] SALES TEAMMATE documented in this encounter Plan of Treatment Upcoming Encounters Date Type Specialty Care Team Description 05/12/2022 Hospital Encounter Chemo Therapy/Infusion Services 09/15/2022 Telemedicine Gastroenterology Eusebio Haines MD [address] [place] [address] documented as of this encounter Visit Diagnoses Not on filedocumented in this encounter Care Teams Interactive Media Designer Relationship Specialty Start Date End Date Sheeba Castillo, ALLEY TENDER, JUVENILE JUSTICE OFFICER PCP - General Nurse Practitioner 07/20/[address] [place] [id number] documented as of this encounter
--- OUTSIDE RECORDS SUMMARY | 2022-05-09 19:27 | XMS_ITS | Encounter Summary ---
:1975 Author Organization [employer] Address [address] [place] [address] Care Team Providers Name Role Phone Kinga Pickett APRN, VISUAL INSPECTOR Primary Care Provider [phone] Reason for Visit Reason Onset Date Comments Refill 03/16/2016 Encounter Details Date Type Department Care Team Description 03/16/2016 Telephone [facility] Sheeba Roca, RUDY, Refill [address] [place] [address] [place] [phone] [place], [place] [address] (Wo rk) Social History Tobacco Use Types Packs/Day Years Used Date Smoking Tobacco: Former Cigarettes 0.3 15 Quit : 04/25/2015 Smokeless Tobacco: Never Alcohol Use Standard Drinks/Week Comments Yes 0 (1 standard drink = 0.6 oz pure alcoho l) rarely Sex Assigned at Date Recorded Female 05/09/2021 7:19 PM RADIO REPAIRMAN documented as of this encounter Nursing Notes July Dubose LPN - 03/16/2016 2:52 PM CDT vm left for [place] [facility] regarding denial Dixie Daniels MD - 03/16/2016 12:25 PM CDT Declined.Pt needs evaluation.Unable to prescribe as its not on med list.Thanks Alejandrina Montana LPN - 03/16/2016 11:08 AM CDT Pt's pharmacy [facility] requesting a refill of pt's ativan 0.5mg Take 1 tablet po every 6 hours PRN Anxiety. I put the request in your inbox. I do not see this medication on current active medication list. Pt has taken in the past. Please see medication history. Please advise. Routing for client development consultant provider for Jonathan. documented in this encounter Plan of Treatment Upcoming Encounters Date Type Specialty Care Team Description 05/12/2022 Hospital Encounter Chemo Therapy/Infusion Services 09/15/2022 Telemedicine Gastroenterology Eusebio Haines MD [address] [place] [address] documented as of this encounter Visit Diagnoses Not on filedocumented in this encounter Care Teams Reservoir Engineering Consultant Relationship Specialty Start Date End Date Kinga Pickett, ARMATURE WINDER, VISUAL INSPECTOR PCP - General 03/15/15 07/04/16 [address] [place], [place] [id number] documented as of this encounter
--- OUTSIDE RECORDS SUMMARY | 2022-05-09 19:27 | XMS_ITS | Encounter Summary ---
:1975 Author Organization [employer] Address [address] [place] [address] Care Team Providers Name Role Phone Found, No Pcp MD Primary Care Provider Unavailable Reason for Visit Reason Comments Preop Exam dos 07/12/16 gallbladder Encounter Details Date Type Department Care Team Description 07/11/2016 Pre-Op Visit [facility] Lori Tapia Acute hypokalemia Medicine R, DO (Primary Dx) [address] [place] [id number] Social History Tobacco Use Types Packs/Day Years Used Date Smoking Tobacco: Former Cigarettes 0.3 15 Quit : 04/25/2015 Smokeless Tobacco: Never Alcohol Use Standard Drinks/Week Comments Yes 0 (1 standard drink = 0.6 oz pure alcoho l) rarely Sex Assigned at Date Recorded Female 05/09/2021 7:19 PM HOST/HOSTESS GROUND documented as of this encounter Last Filed Vital Signs Vital Sign Reading Time Taken Comments Blood Pressure 113/81 07/11/2016 10:31 AM HOST/HOSTESS GROUND Pulse 110 07/11/2016 10:31 AM HOST/HOSTESS GROUND Temperature 37.4 ??C (99.3 ??F) 07/11/2016 10:29 AM HOST/HOSTESS GROUND Respiratory Rate - - Oxygen Saturation - - Inhaled Oxygen Concentration - - Weight 89.8 kg (198 lb) 07/11/2016 10:29 AM HOST/HOSTESS GROUND Height 167.6 cm (5' 6) 07/11/2016 10:29 AM HOST/HOSTESS GROUND Body Mass Index 31.96 07/11/2016 10:29 AM HOST/HOSTESS GROUND documented in this encounter Patient Instructions Patient [...] surgery with a small sip of water /HOSTESS GROUND documented in this encounter OR Notes H&P [...] Years of Education: N/A 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 [...] friend. No children. 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 Enjoys horseDeciZium riding. Current Outpatient Prescriptions Medication Sig Dispense [...] energy drinks. Will route to recommendation to Skiing Instructor who is currently managing her weight loss. [...] WITH PATIENT: yes Lori Tapia DO 07/11/2016 /HOSTESS GROUND documented in this encounter Plan of Treatment Upcoming Encounters Date Type Specialty Care Team Description 05/12/2022 Hospital Encounter Chemo Therapy/Infusion Services 09/15/2022 Telemedicine Gastroenterology Eusebio Haines MD [address] [place] [address] documented as of this encounter Visit Diagnoses Diagnosis Acute hypokalemia - Primary Hypopotassemia documented in this encounter Care Teams Field Administrator Relationship Specialty Start Date End Date Found, No Pcp, PCP - General 07/05/16 07/11/16 [address] [place] [address] documented as of this encounter
--- OUTSIDE RECORDS SUMMARY | 2022-05-09 19:27 | XMS_ITS | Encounter Summary ---
:1975 Author Organization [employer] Address [address] [place] [address] Care Team Providers Name Role Phone Kinga Pickett APRN, CNP Primary Care Provider [phone] Encounter Details Date Type Department Care Team Description 05/29/2016 Lab Visit [facility] ry Abnormal weight gain [address] [place], [place] [address] Social History Tobacco Use Types Packs/Day Years Used Date Smoking Tobacco: Former Cigarettes 0.3 15 Quit : 04/25/2015 Smokeless Tobacco: Never Alcohol Use Standard Drinks/Week Comments Yes 0 (1 standard drink = 0.6 oz pure alcoho l) rarely Sex Assigned at Date Recorded Female 05/09/2021 7:19 PM HAND SAMPLE MAKER documented as of this encounter Plan of Treatment Upcoming Encounters Date Type Specialty Care Team Description 05/12/2022 Hospital Encounter Chemo Therapy/Infusion Services 09/15/2022 Telemedicine Gastroenterology Eusebio Haines MD [address] [place], [place] [address] documented as of this encounter Procedures Procedure Name Priority Date/Time Associated Diagnosis Comme nts CORTISOL SALIVA Routine 05/29/2016 10:10 AM Abnormal weight ga in Results for this HAND SAMPLE MAKER procedure are i n the results section. documented in this encounter Results Cortisol Saliva (05/29/2016 10:10 AM HAND SAMPLE MAKER) P athologist Signature Saliva 1010 pm PN SOFT Collection Time Cortisol Saliva 0.065 ug/dL PN SOFT Comment: INTERPRETIVE INFORMATION: Cortisol, Angela va Effective 07/17/2005 For collection at 2300 hr. the normal co rtisol concentration is less than 0.112 ug/dL. ??Patients with Cushings Syndrome have concentrations of 0.112 ug/dL or greater. ? a.m. ([id number] ) ?p.m. (noon-1800) Males ??2.5-7 years ?? [...] older ??0.149-0.739 ug/dL ?0.022-0.254 ug/dL Performed by [facility], [address] [place] [address] [email or web address], Darrell Dee MD - Lab. Director Specimen Anatomical Collection Method Collection Time Receive d Time (Source) Location / / Volume Laterality 05/29/2016 10:10 05/30/2016 AM HAND SAMPLE MAKER 12:21 PM HAND SAMPLE MAKER Narrative PN SOFT - 06/01/2016 6:31 PM HAND SAMPLE MAKER Performed at [facility] [address] [place] [address] CLIA number [id number] La Mendosa MD LAB_1 Performing Organization Address City/State/ZIP Code Phon e Number PN SOFT [address] [place] [address] [phone] documented in this encounter Visit Diagnoses Diagnosis Abnormal weight gain documented in this encounter Care Teams Clinic Director Relationship Specialty Start Date End Date Kinga Pickett APRN, COMPUTER ENGINEERING PROFESSOR PCP - General 03/15/15 07/04/16 [address] [place] [address] documented as of this encounter
--- OUTSIDE RECORDS SUMMARY | 2022-05-09 19:27 | XMS_ITS | Encounter Summary ---
:1975 Author Organization [employer] Address [address] [place] [address] Care Team Providers Name Role Phone Hoang Peacock APRN, SIERRA Primary Care Provider [phone] Reason for Visit Reason Comments Refill Encounter Details Date Type Department Care Team Description 12/23/2015 Refill [facility] Hoang Morrow APRN, Refill [address] [place] [address] [address] [facility] [phone] [facility], [place] [address] (Wo rk) Social History Tobacco Use Types Packs/Day Years Used Date Smoking Tobacco: Never Assessed Sex Assigned at Date Recorded Female 05/09/2021 7:19 PM 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 (unchanged) - WARNING: The requested medication was discontinued on 06/12/2015 by CASTILLO, SHEEBA C. - REFILL: 3 months (if warnings resolved) - RATIONALE: This refill should last until the patient is due for an office visit. - LAST QUALIFYING VISIT WITH HOANG PEACOCK: 03/24/2015 (A more recent visit in Family Medicine was found) - NEXT SCHEDULED VISIT: None Powered by [employer], Reference: [id number], 12/23/2015 12:53:39 PM CDT, Pool: LIRIANO FP REFILL ([id number]) CULTURAL CROP FARM MANAGER Sheeba Castillo APRN, CNP - 12/23/2015 3:25 PM CDT Amitriptyline refilled. Matilde Vera - 12/23/2015 2:36 PM CDT Last fill date: 05-18-15 Last seen: 11-18-15 No upcoming appts Note from Pharmacy: Started getting headaches again. BP is normal and would like to try this again to see if it works. Was on the medication for years for headache prevention documented in this encounter Plan of Treatment Upcoming Encounters Date Type Specialty Care Team Description 05/12/2022 Hospital Encounter Chemo Therapy/Infusion Services 09/15/2022 Telemedicine Gastroenterology Eusebio Haines MD [address] [place], [place] [address] documented as of this encounter Visit Diagnoses Not on filedocumented in this encounter Care Teams Dish Carrier Relationship Specialty Start Date End Date Hoang Peacock APRN, SEAM TAPER MACHINE PCP - General 03/15/15 07/04/16 [address] [place], [place] [id number] documented as of this encounter
--- OUTSIDE RECORDS SUMMARY | 2022-05-09 19:27 | XMS_ITS | Encounter Summary ---
:1975 Author Organization [employer] Address [address] [address] Care Team Providers Name Role Phone Found, No Pcp MD Primary Care Provider Unavailable Reason for Visit Reason Onset Date Comments QUESTIONS, GENERAL 07/07/2016 Encounter Details Date Type Department Care Team Description 07/07/2016 Telephone [facility] Found, No Pcp, MD QUESTIONS, GENERAL [address] [phone] Social History Tobacco Use Types Packs/Day Years Used Date Smoking Tobacco: Former Cigarettes 0.3 15 Quit : 04/25/2015 Smokeless Tobacco: Never Alcohol Use Standard Drinks/Week Comments Yes 0 (1 standard drink = 0.6 oz pure alcoho l) rarely Sex Assigned at Date Recorded Female 05/09/2021 7:19 PM WELDING MACHINE OPERATOR ARC documented as of this encounter Nursing Notes Chastity Bravo, RN - 07/07/2016 7:23 PM CST Caller states she is scheduled to see General surgery on Sunday but not sure quite why. Discussed US and plan of care as outlined by Gastro. Continues to have upper abdominal pain as when first assessed with no change. Pain is 4 Took tylenol today for work. Discussed how to manage pain over the weekend. Take Forest if pain is severe ( 8, 9, [...] benzocaine (HURRICAINE) 20 % oral spray 1 [place] 1 [place] Mouth/Throat PRN Archie Vasquez MD 1 [place] at 07/06/16 1140 [DISCONTINUED] fentaNYL (SUBLIMAZE) injection [...] Vasquez MD 20 mL at 07/06/16 1212 ING MACHINE OPERATOR ARC documented in this encounter Plan of Treatment Upcoming Encounters Date Type Specialty Care Team Description 05/12/2022 Hospital Encounter Chemo Therapy/Infusion Services 09/15/2022 Telemedicine Gastroenterology Eusebio Haines MD [address] [place], [place] [address] documented as of this encounter Visit Diagnoses Not on filedocumented in this encounter Care Teams Surgical Scrub Tech Relationship Specialty Start Date End Date Found, No PcpMD PCP - General 07/05/16 07/11/16 [address] [place] [address] documented as of this encounter
--- OUTSIDE RECORDS SUMMARY | 2022-05-09 19:27 | XMS_ITS | Encounter Summary ---
:1975 Author Organization [employer] Address [address] [place] [address] Care Team Providers Name Role Phone Found, No Pcp MD Primary Care Provider Unavailable Reason for Referral Consult/Transfer Care (Routine) - Closed Specialty Diagnoses / Procedures Referred By Contact Refer red To Contact Diagnoses Calculus of bile duct without cholangitis or biliary obstruction Eduardo Vasquez MD [address] [place], [place] [address] Referral ID Status Reason Start Date Expiration Date Visits Requ ested Visits Authorized [id number] Closed 07/06/2016 10/05/2017 1 1 Scheduling Instructions Your provider has recommended an appoint ment with [facility] Surgery. You may call [phone] to schedule your a ppointment. If you do not schedule an appointment within the next 1 to 3 busin days, we will call you to help arrange your appointment. We suggest you call [employer] about your coverage and benefits for this appointme nt. NDER JOB RETENTION SPECIALIST Reason for Visit Reason Onset Date Comments APPOINTMENT REQUEST 07/06/2016 Encounter Details Date Type Department Care Team Description 07/06/2016 Telephone [facility] [address] Angelo Vasquez MD APPOINTMENT REQUEST Endoscopy [address] [place] [address] [phone] Social History Tobacco Use Types Packs/Day Years Used Date Smoking Tobacco: Former Cigarettes 0.3 15 Quit : 04/25/2015 Smokeless Tobacco: Never Alcohol Use Standard Drinks/Week Comments Yes 0 (1 standard drink = 0.6 oz pure alcoho l) rarely Sex Assigned at Date Recorded Female 05/09/2021 7:19 PM OFFENDER JOB RETENTION SPECIALIST documented as of this encounter Nursing Notes Beth Nichols RN - 07/07/2016 8:36 AM CST Pt notified and verbalized understanding of below. Warm transferred to surgery scheduling. Pt to call back if any further questions or concerns. NDER JOB RETENTION SPECIALIST Eduardo Vasquez MD - 07/06/2016 12:17 PM CST Please arrange general surgery consult for gallstones. Ordered NDER JOB RETENTION SPECIALIST documented in this encounter Plan of Treatment Upcoming Encounters Date Type Specialty Care Team Description 05/12/2022 Hospital Encounter Chemo Therapy/Infusion Services 09/15/2022 Telemedicine Gastroenterology Eusebio Haines MD [address] [place] [address] Scheduled Referrals Name Type Priority Associated Diagnoses Order S chedule Surgery Consult-Adults Referral Routine Calculus of bile d uct Ordered: 07/06/2016 without cholangitis or biliary obstruction documented as of this encounter Visit Diagnoses Diagnosis Calculus of bile duct without cholangiti s or biliary obstruction - Primary documented in this encounter Care Teams Airborne Mission Systems Relationship Specialty Start Date End Date Found, No Pcp, PCP - General 07/05/16 07/11/16 [address] [place] [address] documented as of this encounter
--- OUTSIDE RECORDS SUMMARY | 2022-05-09 19:27 | XMS_ITS | Encounter Summary ---
:1975 Author Organization [employer] Address [address] [place] [address] Care Team Providers Name Role Phone Kinga Pickett APRN, CNP Primary Care Provider [phone] Encounter Details Date Type Department Care Team Description 05/29/2016 Lab Visit [facility] [address] Abnormal weight gain [address] 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 INTACT PTH Routine 05/29/2016 3:29 PM Abnormal weight gain R esults for this AIR BRAKE MECHANIC procedure are i n the results section. BASIC METABOLIC Routine 05/29/2016 3:29 PM Abnormal weight gai n Results for this PANEL AIR BRAKE MECHANIC procedure are i n the results section. documented in this encounter Results Vitamin D (In house) (05/29/2016 3:29 PM AIR BRAKE MECHANIC) athologist Signature Vitamin D 25 Oh 62 20 - 80 PN SOFT ng/mL Comment: Deficiency = <20 Adequate ??= 20-29 Preferred = 30-50 Uncertain safety = 51-80 High = >80 Specimen Anatomical Collection Method Collection Time Receive d Time (Source) Location / / Volume Laterality 05/29/2016 3:29 PM 6 7:40 AIR BRAKE MECHANIC PM AIR BRAKE MECHANIC Narrative PN SOFT - 05/29/2016 9:03 PM AIR BRAKE MECHANIC Performed at [facility] [address] [place] [address] CLIA number [id number] .Cortisal Saliva La Mendosa MD LAB_1 Performing Organization Address City/State/ZIP Code Phon e Number PN SOFT [facility] [place] [address] BMP - Basic Metabolic Panel (05/29/2016 3:29 PM AIR BRAKE MECHANIC) athologist Signature Creatinine Serum 0.70 0.55 - [...] Volume Laterality 05/29/2016 3:29 PM 6 3:29 AIR BRAKE MECHANIC PM AIR BRAKE MECHANIC Narrative PN SOFT - 05/29/2016 4:02 PM AIR BRAKE MECHANIC Performed at [facility], [address] [place] [address] CLIA number [id number] .Cortisal Saliva La Mendosa MD LAB_1 Performing Organization Address City/[facility] Phon e Number PN SOFT [address] [place] [address] [phone] PTH - Parathyroid Hormone Intact (05/29/2016 3:29 PM AIR BRAKE MECHANIC) athologist Signature PTH 62 10 - 100 PN SOFT pg/mL Specimen Anatomical Collection Method Collection Time Receive d Time (Source) Location / / Volume Laterality 05/29/2016 3:29 PM 6 6:36 AIR BRAKE MECHANIC PM AIR BRAKE MECHANIC Narrative PN SOFT - 05/29/2016 7:37 PM AIR BRAKE MECHANIC Performed at [facility], [address] [place] [address] CLIA number [id number] .Cortisal Saliva La Mendosa MD LAB_1 Performing Organization Address City/[facility] Phon e Number PN SOFT [address] [place] [address] [phone] documented in this encounter Visit Diagnoses Diagnosis Abnormal weight gain documented in this encounter Care Teams Access Rn Relationship Specialty Start Date End Date Kinga Pickett APRN, PHOTOGRAPHIC ARTIST PCP - General 03/15/15 07/04/[address] [place] [address] documented as of this encounter
--- OUTSIDE RECORDS SUMMARY | 2022-05-09 19:27 | XMS_ITS | Encounter Summary ---
:1975 Author Organization [employer] Address [address] [place] [address] Care Team Providers Name Role Phone Kinga Pickett APRN, CNP Primary Care Provider [phone] Reason for Visit Reason Comments Refill Encounter Details Date Type Department Care Team Description 01/17/2016 Refill [facility] Sheeba Roca APRN, Refill [address] [place] [address] [phone] [place], [place] [address] (Wo rk) Social History Tobacco Use Types Packs/Day Years Used Date Smoking Tobacco: Never Assessed Sex Assigned at Date Recorded Female 05/09/2021 7:19 PM EXECUTIVE COORDINATOR documented as of this encounter Nursing Notes Adri Sanchez LPN - 01/17/2016 3:10 PM CDT Unable to reach pt Left message with Clay directions below Sheeba Castillo APRN, CNP - 01/17/2016 3:04 [...] tablet [Sheeba Castillo APRN, CNP] [facility] [address] Comment: I have been [...] instead to see if that would help? UTIVE COORDINATOR documented in this encounter Miscellaneous Notes Refill (Converted) - Gary Christy Provider - 01/17/2016 10:57 AM CDT Medication Renewal Request From User: Original authorizing provider: Sheeba Castillo APRN, CNP Kelly L Carlson would like a refill of the following medications: hydrochlorothiazide (ORETIC) 25 mg tablet [Sheeba Castillo APRN, SIERRA] [place] pharmacy: [place] [facility] [place] [place] - [address] Comment: I have been [...] 09/15/2022 Telemedicine Gastroenterology Eusebio Haines MD [address] [place], [place] [phone] documented as of this encounter Visit Diagnoses Diagnosis Bilateral edema of lower extremity - Frannie vicki Edema Essential hypertension (HRC) Unspecified essential hypertension documented in this encounter Care Teams Geophysical Prospecting Surveyor Relationship Specialty Start Date End Date Kinga Pickett APRN, MINE MOTOR OPERATOR PCP - General 03/15/15 07/04/16 [address] [place] [address] documented as of this encounter
--- OUTSIDE RECORDS SUMMARY | 2022-05-09 19:27 | XMS_ITS | Encounter Summary ---
:1975 Author Organization [employer] Address [address], [place] [address] Care Team Providers Name Role Phone Needs Pcp, Assignment Primary Care Provider Encounter Details Date Type Department Care Team Description 07/12/2016 Hospital Encounter [facility] Silvino Lynne MD [facility] [address] [place], [place] [address] [address] [place], [place] [phone] ( Work) [address] [phone] Social History Tobacco Use Types Packs/Day Years Used Date Smoking Tobacco: Former Cigarettes 0.3 15 Quit : 04/25/2015 Smokeless Tobacco: Never Alcohol Use Standard Drinks/Week Comments Yes 0 (1 standard drink = 0.6 oz pure alcoho l) rarely Sex Assigned at Date Recorded Female 05/09/2021 7:19 PM PACK MASTER documented as of this encounter Last Filed Vital Signs Vital Sign Reading Time Taken Comments Blood Pressure - - Pulse - - Temperature - - Respiratory Rate - - Oxygen Saturation - - Inhaled Oxygen Concentration - - Weight 89.8 kg (198 lb) 07/11/2016 1:19 PM PACK MASTER Height 167.6 cm (5' 6) 07/11/2016 1:19 PM PACK MASTER Body Mass Index 31.96 07/11/2016 1:19 PM PACK MASTER documented in this encounter Medications at Time [...] mouth 30 Tab 0 07/13/19 17 07/30/2016 (LAURO SHANE) 20 daily. MEQ tabletIndications: Acute hypokalemia potassium chloride Take 1 Tab by mouth 2 Tab 0 07/11/19 17 07/13/2016 (K-NEERU WATKINS-VENICE) 20 daily for 2 days. MEQ tabletIndications: [...] MD - 07/12/2016 5:29 PM CST NAME: IDANIA DUARTE MR#: [id number] CSN: [id number] AUTHENTICATING CLINICIAN: Donovan Lynne MD CONFIRM #: [id number] LOC: 1 OPERATIVE REPORT DATE OF OPERATION: 07/12/2016 : 1975 SURGEON: Donovan Lynne MD PREOPERATIVE DIAGNOSIS: Biliary colic. POSTOPERATIVE DIAGNOSIS: Biliary colic. PROCEDURE PERFORMED: Laparoscopic cholecystectomy. GUEST RELATIONS OFFICER: LUPILLO Hopper. There was no surgery resident [...] in satisfactory condition. BRET:EAN C: CONFIRM #: [id number] MASTER Raquel Mariee PA-C - 07/12/2016 3:26 PM CST BRIEF OPERATIVE NOTE Date of procedure: 07/12/2016 Pre op diagnosis: Biliary Colic in setting of Cholelithiasis Post op diagnosis: same as above Procedure: Laparoscopic Cholecystectomy Surgeon: Dr. Donovan Lynne Assistants: Raquel Mariee PA-C. A qualified resident was not available. An food and beverage assistant was needed to help with tissue retraction and to facilitate the operative exposure. Findings: See Dr. Lynne's operative report for complete details. Estimated blood loss: 3 ml Fluids: 1,150 ml LR-Crystalloid Specimen: Gallbladder - to pathology, routine. Complications: None Disposition: Discharge home Post op plan: Process through recovery; discharge to home when patients meets criteria. MASTER documented in this encounter OR Notes H&P [...] candidate for surgery. Donovan Lynne MD 07/12/2016 MASTER documented in this encounter Plan of Treatment Upcoming Encounters Date Type Specialty Care Team Description 05/12/2022 Hospital Encounter Chemo Therapy/Infusion Services 09/15/2022 Telemedicine Gastroenterology Eusebio Haines MD [address] [place] [address] documented as of this encounter Procedures Procedure Name Priority Date/Time Associated Diagnosis Comme nts POCT URINE STAT 07/12/2016 1:50 PM Results f or this PACK MASTER procedure are i n the results section. POTASSIUM STAT 07/12/2016 1:15 PM Results f or this PACK MASTER procedure are i n the results section. SURGICAL PATHDONAL Routine 07/12/2016 6:00 AM Re sults for this NICOLLET PACK MASTER procedure are i n the results section. documented in this encounter Results POCT urine : (07/12/2016 1:50 PM PACK MASTER) [facility] Method Time Signature Urine Negative PN POCT Test - POC Control Line Yes PN POCT Present, Clear Background - Internal control Cartridge Lot# [id number] PN POCT Specimen (Source) Anatomical Collection Method Collection Time Re ceived Time Location / / Volume Laterality Urine specimen 07/12/2016 1:50 PM (specimen) PACK MASTER Donovan Lynne MD PN POINT OF CARE TESTS Performing Organization Address City/[facility]/ZIP Code Phon e Number POCT PN POCT (ABNORMAL) POTASSIUM (07/12/2016 1:15 PM PACK MASTER) athologist [facility] Potassium 3.2 (L) 3.5 - 5.2 PN SOFT mmol/L Specimen Anatomical Collection Method Collection Time Receive d Time (Source) Location / / Volume Laterality 07/12/2016 1:15 PM 7 1:47 PACK MASTER PM PACK MASTER Narrative PN SOFT - 07/12/2016 2:20 PM PACK [place] [address] CLIA number [id number] Donovan Lynne MD LAB_1 Performing Organization Address [facility] Phon e Number PN SOFT [address] [place] [address] Pathology Report (07/12/2016 6:00 AM PACK MASTER) [facility] Method Time Signature Path: FINAL SURGICAL PATHOLOGY REPORT PN SOFT Pathology #: [id number] ? Date Obtained: 07/12/2016 ?Date Received: 07/12/2016 DIAGNOSIS: Gallbladder, cholecystectomy: 1. ??Cholelithiasis. 2. ??Minimal chronic cholecystitis. ?TESSY PACHECO, M D ? (electronic signatur e) ? 07/13/2016 [...] are submitted in 1 cassette, 412. ? B MICROSCOPIC DESCRIPTION: Microscopic examination performed. Performed at [facility], [facility] [place] [address] Specimen Anatomical Location Collection Method Collection Time Received Time (Source) / Laterality / Volume TISSUE SPECIMEN 07/12/2016 6:00 7 6:00 FROM GALLBLADDER / AM PACK MASTER AM PACK MASTER Unknown Donovan Lynne MD LAB_1 Performing Organization Address City/State/ZIP Code Phon e Number PN SOFT [address] [place] [address] documented in this encounter Visit Diagnoses Not on filedocumented in this encounter Active and Recently Administered Medications Care Teams Commercial Manager Relationship Specialty Start Date End Date Needs Pcp, Assignment PCP - General 07/12/16 07/12/16 [place] [address] documented as of this encounter
--- OUTSIDE RECORDS SUMMARY | 2022-05-09 19:27 | XMS_ITS | Encounter Summary ---
:1975 Author Organization [employer] Address [address] [place] [address] Care Team Providers Name Role Phone Kinga [place] APRN, CNP Primary Care Provider [phone] Encounter Details Date Type Department Care Team Description 03/31/2016 Notes/Orders Lavon Nolasco Abnormal alena ht gain Obstetrics/Gynecolog y MD Vikash (Primary Dx) [address] [facility] [address] [facility] [place] [address] [address] [place], [place] [phone] [address] Social History Tobacco Use Types Packs/Day Years Used Date Smoking Tobacco: Former Cigarettes 0.3 15 Quit : 04/25/2015 Smokeless Tobacco: Never Alcohol Use Standard Drinks/Week Comments Yes 0 (1 standard drink = 0.6 oz pure alcoho l) rarely Sex Assigned at Date Recorded Female 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 Test developed and characteristics deter mined by [facility]. See Compliance Statement B : [facility]/CS Testosterone Free Female and Child 1.2 (L) [...] reference intervals for this test in the [employer] Test Directory ([facility] [employer]). Test developed and characteristics deter mined by [facility]. See Compliance Statement B : [employer]/CS Performed by [facility], [address] [place] [address] www.[facility] [employer], Darrell Dee MD - Lab. Director Sex Hormone Binding Globulin 213 (H) 30 - 135 nmol/L PN SOFT Comment: REFERENCE INTERVAL: Sex Hormone Binding Globulin Access complete set of age- and/or gende r-specific reference intervals for this test in the [facility] Test Directory ([employer]). Specimen Anatomical Collection Method Collection Time Receive d Time (Source) Location / / Volume Laterality 03/31/2016 4:38 PM 6 6:51 CDT PM CDT Narrative PN SOFT - 04/04/2016 2:54 PM CDT Performed at [facility] [address] [place] [address] CLIA number [id number] Lavon Song MD LAB_1 Performing Organization Address City/State/ZIP Code Phon e Number PN SOFT [address] [place] [address] Hemoglobin A1C [A1C] (03/31/2016 4:38 PM CDT) athologist Signature HGB A1C 5.1 4.0 - 5.6 % PN SOFT Specimen Anatomical Collection Method Collection Time Receive d Time (Source) Location / / Volume Laterality 03/31/2016 4:38 PM 6 6:44 CDT PM CDT Narrative PN SOFT - 03/31/2016 9:57 PM CDT Performed at [address] [address] CLIA number [id number] Lavon Song MD LAB_1 Performing Organization Address [facility] Phon e Number SOFT [address] [place] [address] Glucose (GLUC) (03/31/2016 4:38 PM CDT) athologist [facility] Lab Glucose 92 60 - 100 PN SOFT mg/dL Specimen Anatomical Collection Method Collection Time Receive d Time (Source) Location / / Volume Laterality 03/31/2016 4:38 PM 6 7:18 CDT PM CDT Narrative PN SOFT - 03/31/2016 7:33 PM CDT Performed at [address] [address] CLIA number [id number] Lavon Song MD LAB_1 Performing Organization Address [facility] Phon e Number SOFT [address] [place] [address] Dehydroepiandrosterone Sulfate [DHEAS] (03/31/2016 4:38 PM CDT) Component Value Ref Test Analysis Performed At [facility] gist Range Method Time Signature Dehydroepiandrosterone 152 45 - 270 PN SOFT Sulfate ug/dL Comment: REFERENCE INTERVAL: DHEAS Access complete set of age- and/or gende r-specific reference intervals for this test in the [facility] Test Directory ([facility] [employer]). Performed by [facility], [address] [facility] [address] www.[facility], Darrell Dee MD - Lab. Director Specimen Anatomical Collection Method Collection Time Receive d Time (Source) Location / / Volume Laterality 03/31/2016 4:38 PM 6 6:17 CDT PM CDT Narrative PN SOFT - 04/02/2016 9:21 PM CDT Performed at [facility] [address] [place] [address] CLIA number [id number] Lavon Song MD LAB_1 Performing Organization Address City/[facility] Code Phon e Number PN SOFT [address] [place] [address] Androstenedione [ANDROST] (03/31/2016 4:38 PM CDT) athologist Signature Androstenedione 0.501 0.260 - PN SOFT 2.140 ng/mL Comment: INTERPRETIVE INFORMATION: Androstenedion e, Females 18 years and older Post-menopausal: 0.13-0.82 ng/mL REFERENCE INTERVAL: Androstenedione by T MS Access complete set of age- and/or gende r-specific reference intervals for this test in the [facility] Test Directory ([employer]). Test developed and characteristics deter mined by [facility]. See Compliance Statement B : [facility]/CS Performed by [facility], [address] [place] [address] www.[facility] [employer], Darrell Dee MD - Lab. Director Specimen Anatomical Collection Method Collection Time Receive d Time (Source) Location / / Volume Laterality 03/31/2016 4:38 PM 6 6:17 CDT PM CDT Narrative PN SOFT - 04/04/2016 2:00 PM CDT Performed at [facility] [address] [place] [address] CLIA number [id number] Lavon Song MD LAB_1 Performing Organization Address City/[facility] Phon e Number PN SOFT [address] [place] [address] documented in this encounter Visit Diagnoses Diagnosis Abnormal weight gain - Primary Abnormal weight gain documented in this encounter Care Teams Balance Truing Inspector Relationship Specialty Start Date End Date Kinga [place], ORGANIC LAB WORKER, DIRECTOR DIGITAL STRATEGY PCP - General 03/15/15 07/04/16 [address] [place] [address] documented as of this encounter
--- OUTSIDE RECORDS SUMMARY | 2022-05-09 19:27 | XMS_ITS | Encounter Summary ---
:1975 Author Organization [employer] Address [address] [place] [address] Care Team Providers Name Role Phone Kinga [place] APRN, CNP Primary Care Provider [phone] Encounter Details Date Type Department Care Team Description 03/31/2016 Lab Visit [facility] ry Abnormal weight gain [address] [place], [place] [address] Social History Tobacco Use Types Packs/Day Years Used Date Smoking Tobacco: Former Cigarettes 0.3 15 Quit : 04/25/2015 Smokeless Tobacco: Never Alcohol Use Standard Drinks/Week Comments Yes 0 (1 standard drink = 0.6 oz pure alcoho l) rarely Sex Assigned at Date Recorded Female 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 Test developed and characteristics deter mined by [facility]. See Compliance Statement B : [employer]/CS Testosterone Free Female and Child 1.2 (L) [...] reference intervals for this test in the [facility] Test Directory ([employer]). Test developed and characteristics deter mined by [facility]. See Compliance Statement B : [facility] [facility]/CS Performed by [facility], [address] [place] [address] www.[facility] [facility], Darrell Dee MD - Lab. Director Sex Hormone Binding Globulin 213 (H) 30 - 135 nmol/L PN SOFT Comment: REFERENCE INTERVAL: Sex Hormone Binding Globulin Access complete set of age- and/or gende r-specific reference intervals for this test in the [facility] Laboratory Test Directory ([employer]). Specimen Anatomical Collection Method Collection Time Receive d Time (Source) Location / / Volume Laterality 03/31/2016 4:38 PM 6 6:51 CDT PM CDT Narrative PN SOFT - 04/04/2016 2:54 PM CDT Performed at [address] [address] CLIA number [id number] Lavon Song MD LAB_1 Performing Organization Address City/[facility] Phon e Number PN SOFT [address] [place] [address] Hemoglobin A1C [A1C] (03/31/2016 4:38 PM CDT) athologist Signature HGB A1C 5.1 4.0 - 5.6 % PN SOFT Specimen Anatomical Collection Method Collection Time Receive d Time (Source) Location / / Volume Laterality 03/31/2016 4:38 PM 6 6:44 CDT PM CDT Narrative PN SOFT - 03/31/2016 9:57 PM CDT Performed at [address] [address] CLIA number [id number] Lavon Song MD LAB_1 Performing Organization Address [facility] Phon e Number PN SOFT [address] [place] [address] Glucose (GLUC) (03/31/2016 4:38 PM CDT) athologist [facility] Lab Glucose 92 60 - 100 PN SOFT mg/dL Specimen Anatomical Collection Method Collection Time Receive d Time (Source) Location / / Volume Laterality 03/31/2016 4:38 PM 6 7:18 CDT PM CDT Narrative PN SOFT - 03/31/2016 7:33 PM CDT Performed at [address] [address] CLIA number [id number] Lavon Song MD LAB_1 Performing Organization Address [facility] Phon e Number PN SOFT [address] [place] [address] [phone] Dehydroepiandrosterone Sulfate [DHEAS] (03/31/2016 4:38 PM CDT) Component Value Ref Test Analysis Performed At Patholo gist Range Method Time Signature Dehydroepiandrosterone 152 45 - 270 PN SOFT Sulfate ug/dL Comment: REFERENCE INTERVAL: DHEAS Access complete set of age- and/or gende r-specific reference intervals for this test in the [facility] Test Directory ([employer]). Performed by [facility], [address] [place] [address] www.[facility] [facility] [employer], Darrell Dee MD - Lab. Director Specimen Anatomical Collection Method Collection Time Receive d Time (Source) Location / / Volume Laterality 03/31/2016 4:38 PM 6 6:17 CDT PM CDT Narrative PN SOFT - 04/02/2016 9:21 PM CDT Performed at [facility] [address] [place] [address] CLIA number [id number] Lavon Song MD LAB_1 Performing Organization Address City/State/ZIP Code Phon e Number PN SOFT [address] [place] [address] Androstenedione [ANDROST] (03/31/2016 4:38 PM CDT) P athologist Signature Androstenedione 0.501 0.260 - PN SOFT 2.140 ng/mL Comment: INTERPRETIVE INFORMATION: Androstenedion e, Females 18 years and older Post-menopausal: 0.13-0.82 ng/mL REFERENCE INTERVAL: Androstenedione by T MS Access complete set of age- and/or gende r-specific reference intervals for this test in the [facility] Test Directory ([employer]). Test developed and characteristics deter mined by [facility]. See Compliance Statement B : [employer]/ Performed by [facility], [address] [place] [address] www.[employer], Darrell Dee MD - Lab. Director Specimen Anatomical Collection Method Collection Time Receive d Time (Source) Location / / Volume Laterality 03/31/2016 4:38 PM 6 6:17 CDT PM CDT Narrative PN SOFT - 04/04/2016 2:00 PM CDT Performed at [facility] [address] [address] CLIA number [id number] Lavon Song MD LAB_1 Performing Organization Address City/State/ZIP Code Phon e Number PN SOFT [address] [place], [place] [address] [phone] documented in this encounter Visit Diagnoses Diagnosis Abnormal weight gain documented in this encounter Care Teams Battery Container Inspector Relationship Specialty Start Date End Date Kinga [place] APRN, PULVERIZER FEEDER PCP - General 03/15/15 07/04/16 [address] [place] [address] documented as of this encounter
--- OUTSIDE RECORDS SUMMARY | 2022-05-09 19:27 | XMS_ITS | Encounter Summary ---
:1975 Author Organization [employer] Address [address] [place] [address] Care Team Providers Name Role Phone Kinga [place] APRN, CNP Primary Care Provider [phone] Reason for Visit Reason Onset Date Comments Medication Request 03/14/2016 Encounter Details Date Type Department Care Team Description 03/14/[address] 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 Chandrika Wiggins, SIERRA GRANT - 03/14/2016 3:46 PM CDT This requires a longer discussion including controlled sub agrmt, and monitoring of HR, BP, EKG, so needs to be done in conjunction with monthly office visits. Given her long history, she may benefit from [facility] program. Ifrah Castillo - 03/14/2016 3:40 PM [...] Services 09/15/2022 Telemedicine Gastroenterology Eusebio Haines MD [address] [place] [address] documented as of this encounter Visit Diagnoses Not on filedocumented in this encounter Care Teams Singer Back Tender Relationship Specialty Start Date End Date Kinga [place] APRN, CNP PCP - General 03/15/15 07/04/16 [address] [place], [place] [phone] documented as of this encounter
--- OUTSIDE RECORDS SUMMARY | 2022-05-09 19:27 | XMS_ITS | Encounter Summary ---
:1975 Author Organization [employer] Address [address], [place] [address] Care Team Providers Name Role Phone Found, No Pcp MD Primary Care Provider Unavailable Reason for Referral (Routine) - Closed Specialty Diagnoses / Procedures Referred By Contact Refer red To Contact Diagnoses Epigastric pain Miguelangel Barclay MD Procedures EGD [address] [place], [place] [address] Referral ID Status Reason Start Date Expiration Date Visits Requ ested Visits Authorized [id number] Closed 07/06/2016 10/05/2017 1 1 OR LICENSING MANAGER Reason for Visit (Routine) - Closed Specialty Diagnoses / Procedures Referred By Contact Refer red To Contact Diagnoses Epigastric pain Miguelangel Barclay MD Procedures EGD [address] [place], [place] [address] Referral ID Status Reason Start Date Expiration Date Visits Requ ested Visits Authorized [id number] Closed 07/06/2016 10/05/2017 1 1 Encounter Details Date Type Department Care Team Description 07/06/2016 Hospital Encounter Specialty Center Eduardo Vasquez MD Epigastric pain [address] [place] [address] [phone] Social History Tobacco Use Types Packs/Day Years Used Date Smoking Tobacco: Former Cigarettes 0.3 15 Quit : 04/25/2015 Smokeless Tobacco: Never Alcohol Use Standard Drinks/Week Comments Yes 0 (1 standard drink = 0.6 oz pure alcoho l) rarely Sex Assigned at Date Recorded Female 05/09/2021 7:19 PM SENIOR LICENSING MANAGER documented as of this encounter Last Filed Vital Signs Vital Sign Reading Time Taken Comments Blood Pressure 123/80 07/06/2016 12:15 PM SENIOR LICENSING MANAGER Pulse 105 07/06/2016 12:15 PM SENIOR LICENSING MANAGER Temperature - - Respiratory Rate 12 07/06/2016 12:15 PM SENIOR LICENSING MANAGER Oxygen Saturation 96% 07/06/2016 12:15 PM SENIOR LICENSING MANAGER Inhaled Oxygen Concentration - - Weight 93 kg (205 lb) 07/06/2016 11:10 AM SENIOR LICENSING MANAGER Height 167.6 cm (5' 6) 07/06/2016 11:10 AM SENIOR LICENSING MANAGER Body Mass Index 33.09 07/06/2016 11:10 AM SENIOR LICENSING MANAGER documented in this encounter Medications at [...] TO NAUSEA WOULD LIKE TO BE DISCHARGED OR LICENSING MANAGER Mira Seals RN - 07/06/2016 12:12 PM CST O2 sats 90% and above with stimulation and deep breathing OR LICENSING MANAGER documented in this encounter Procedure Notes Eduardo Vasquez MD - 07/06/2016 12:23 PM CST Patient Name: Idaina Duarte Procedure Date: 07/06/2016 11:10 AM Date [...] oxygen saturations were monitored continuously. The flexible [id number] was introduced through the mouth, and advanced [...] be scheduled. Procedure Code(s): --- Professional --- 56923, Esophagogastroduodenoscopy, flexible, transoral; with biopsy, single or multiple Diagnosis Code(s): --- Professional --- K31.89, Other diseases of stomach and duodenum R10.13, Epigastric pain CPT copyright 2014 [employer]. All rights reserved. The codes documented in this report are preliminary and upon information systems analyst review may be revised to meet current compliance requirements. Eduardo Vasquez MD 07/06/2016 12:23:51 PM This document has been electronically signed. Number of Addenda: 0 Note Initiated On: 07/06/2016 11:10 AM Endoscopy Report OR LICENSING MANAGER documented in this encounter Plan of Treatment Upcoming Encounters Date Type Specialty Care Team Description 05/12/2022 Hospital Encounter Chemo Therapy/Infusion Services 09/15/2022 Telemedicine Gastroenterology Eusebio Haines MD [address] [place] [address] documented as of this encounter Procedures Procedure Name Priority Date/Time Associated Comments Diagnosis ENDOSCOPY OBTAINED ANATOMICAL Routine 07/06/2016 Results for PATH 12:14 PM SENIOR LICENSING MANAGER this procedure are in the results section. ENDO ESOPHAGOGASTRODUODENOSCOPY Routine 07/06/2016 Epigastri c pain Results for (EGD) 11:10 AM SENIOR LICENSING MANAGER this procedure are in the results section. SURGICAL PATH, DONAL ARCHULETA Routine 07/06/2016 6:00 Results for AM SENIOR LICENSING MANAGER this procedure are in the results section. documented in this encounter Results Endoscopy Obtained Anatomical Path (07/06/2016 12:14 PM SENIOR LICENSING MANAGER) athologist Signature Endo Tis Received PN SOFT Specimen Anatomical Collection Method Collection Time Receive d Time (Source) Location / / Volume Laterality 07/06/2016 12:14 07/06/2016 PM SENIOR LICENSING MANAGER 12:26 PM SENIOR LICENSING MANAGER Narrative PN SOFT - 07/06/2016 6:39 PM SENIOR LICENSING MANAGER Performed at [facility], [address] [place] [address] CLIA number [id number] Eduardo Vasquez MD LAB_1 Performing Organization Address City/State/ZIP Code Phon e Number PN SOFT [address] [place] [address] EGD (07/06/2016 11:10 AM SENIOR LICENSING MANAGER) Specimen (Source) Anatomical Collection Method Collection Time Re ceived Time Location / / Volume Laterality 07/06/2016 11:10 AM SENIOR LICENSING MANAGER Narrative [facility] ([facility]) - 07/06/2016 11:10 AM SENIOR LICENSING MANAGER Patient Name: Idania Duarte Procedure Date: 07/06/2016 11:10 AM Date of : 1975 Admit Type: Outpatient Age: 41 Gender: Female Note Status: Finalized Attending MD: Eduardo Vasquez MD Procedure: ? Upper GI endos copy Indications: ? Epigastric abdo dada pain Providers: ? Eduardo Vsaquez MD, Mira Seals Referring MD: ?Miguelangel Barclay [...] to the second ? part of d uodekarenaum. The upper GI ? endoscopy was accomplished [...] Code(s): ?? --- Professional - -- ? 36389, Es ophagogastroduodenoscopy, ? flexible, transoral; with biopsy, ? single or multiple Diagnosis Code(s): ?? --- Professional - -- ? K31.89, O ther diseases of stomach and ? duodenum ? R10.13, E pigastric pain CPT copyright 2014 [employer]. All rights reserved. The codes documented in this report are preliminary and upon information systems analyst review may be revised to meet current [...] oxygen saturations were monitored continuously. The flexible [id number] was introduced through the mouth, and advanced [...] be scheduled. Procedure Code(s): --- Professional --- 55417, Esophagogastroduodenoscopy, flexible, transoral; with biopsy, single or multiple Diagnosis Code(s): --- Professional --- K31.89, Other diseases of stomach and duodenum R10.13, Epigastric pain CPT copyright 2014 [employer]. All rights reserved. The codes documented in this report are preliminary and upon information systems analyst review may be revised to meet current compliance requirements. Eduardo Vasquez MD 07/06/2016 12:23:51 PM This document has been electronically si gned. Number of Addenda: 0 Note Initiated On: 07/06/2016 11:10 AM Endoscopy Report Miguelangel Barclay MD PN GI PROCEDURE ORDERABLES Performing Organization Address City/State/ZIP Code Phon e Number GI ([facility]) GI ([facility]) [place], [place] Pathology Report (07/06/2016 6:00 AM SENIOR LICENSING MANAGER) Component Value Ref Test Analysis Performed At [facility] gist Range Method Time Signature Path: FINAL SURGICAL PATHOLOGY REPORT PN SOFT Pathology #: [id number] ?Date Obtained: 07/06/2016 ? Date Received: 07/06/2016 [...] examination performed Performed at [facility], [facility] [place] [address] Specimen Anatomical Collection Method Collection Time Receive d Time (Source) Location / / Volume Laterality STOMACH STRUCTURE 07/06/2016 6:00 AM 06/25 6:00 / Unknown SENIOR LICENSING MANAGER AM SENIOR LICENSING MANAGER Eduardo Vasquez MD LAB_1 Performing Organization Address City/State/ZIP Code Phon e Number [address] [address] documented in this encounter Visit Diagnoses Diagnosis Epigastric pain Abdominal pain, epigastric documented in this encounter Administered Medications Inactive Administered Medications - up to 3 most recent administrations Medication Order MAR Action Action Date Dose Rate Site benzocaine (HURRICAINE) 20 % Given 07/06/2016 11:40 AM SENIOR LICENSING MANAGER 1 Spr ay oral spray 1 [place] 1 [place], Mouth/Throat, PRN, Pain, Starting on Tamela 07/06/16 at 1130, Hazardous waste disposal required. Given 07/06/2016 11:37 AM SENIOR LICENSING MANAGER 1 [place] fentaNYL (SUBLIMAZE) injection 25-100 mc g Given 07/06/2016 12:11 PM SENIOR LICENSING MANAGER 200 mcg 25-100 mcg, Intravenous, PRN, Other, Moderate Sedation, Starting on Tamela 07/06/16 at 1130, Until Sun07/07/16 at 0205, Administer in 25-100 mcg increments as directed by endoscopy procedure MD up to a total of 300 mcg. midazolam (VERSED) injection 0.5-2 mg Given 07/06/2016 12:11 PM SENIOR LICENSING MANAGER 4 mg 0.5-2 mg, Intravenous, PRN, Sedation, Starting on Tamela 07/06/16 at 1130, Until Sun07/07/16 at 0205, Administer in 0.5-2 mg increments as directed by endoscopy procedure MD up to a total of 8 mg. sodium chloride 0.9% injection 10-60 mL Given 07/06/2016 12:12 PM SENIOR LICENSING MANAGER 20 mL 10-60 mL, Intravenous, PRN, Line Patency, Line Care, Starting on Tamela 07/06/16 at 1130, Until Sun07/07/16 at 0205 documented in this encounter Care Teams Data Developer Relationship Specialty Start Date End Date Found, No Pcp, PCP - General 07/05/16 07/11/16 [address] [place] [address] documented as of this encounter
--- OUTSIDE RECORDS SUMMARY | 2022-05-09 19:27 | XMS_ITS | Encounter Summary ---
:1975 Author Organization [employer] Address [address], [place] [address] Care Team Providers Name Role Phone Found, No Pcp MD Primary Care Provider Unavailable Reason for Visit Reason Comments Abdominal Pain Encounter Details Date Type Department Care Team Description 07/05/2016 Hospital Encounter [facility] Berkley Ty A bdominal pain, unspecified location; Care MD Acute pancreatitis, unspecified complica tion status, unspecified pancreatitis type [address] [address] [place] [address] [phone] Social History Tobacco Use Types Packs/Day Years Used Date Smoking Tobacco: Former Cigarettes 0.3 15 Quit : 04/25/2015 Smokeless Tobacco: Never Alcohol Use Standard Drinks/Week Comments Yes 0 (1 standard drink = 0.6 oz pure alcoho l) rarely Sex Assigned at Date Recorded Female 05/09/2021 7:19 PM CRM BUSINESS ANALYST documented as of this encounter Last Filed Vital Signs Vital Sign Reading Time Taken Comments Blood Pressure 143/92 07/05/2016 5:32 PM CRM BUSINESS ANALYST Pulse 117 07/05/2016 5:32 PM pt states her pulse CRM BUSINESS ANALYST is always high Temperature 37 ??C (98.6 ??F) 07/05/2016 5:32 PM CRM BUSINESS ANALYST Respiratory Rate 16 07/05/2016 5:32 PM CRM BUSINESS ANALYST Oxygen Saturation 98% 07/05/2016 5:32 PM CRM BUSINESS ANALYST Inhaled Oxygen - - Concentration Weight - [...] 8:24 PM CST NAME: IGGY DUARTE MR#: [id number] CSN: [id number] AUTHENTICATING CLINICIAN: Berkley Ty MD CONFIRM #: [id number] LOC: 520 URGENT CARE PROGRESS NOTE DATE [...] socks. PAST HISTORY: Updated and reviewed on [facility]. MEDICATIONS: Updated and reviewed on [facility]. ALLERGIES: Updated and reviewed on [facility]. SOCIAL HISTORY: She is a nonsmoker. She drinks 3-4 alcoholic beverages a week and not more than that. 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 OBJECTIVE: VITAL SIGNS: Reviewed on [facility]. GENERAL: Alert, pleasant, and in no acute [...] within the [facility] were normal. I did a lipase and [...] about this.She is going to go to [facility] and I have contacted [facility] to let them know she will be coming. She is safe to drive herself there. HAH:MEDQ C: CONFIRM #: [id number] BUSINESS ANALYST Berkley Ty MD - 07/05/2016 8:21 PM [...] the emergency room. She will go to [facility]. BUSINESS ANALYST documented in this encounter Plan of Treatment Upcoming Encounters Date Type Specialty Care Team Description 05/12/2022 Hospital Encounter Chemo Therapy/Infusion Services 09/15/2022 Telemedicine Gastroenterology Eusebio Haines MD [address] [place], [place] [id number] documented as of this encounter Procedures Procedure Name Priority Date/Time Associated Diagnosis Comme nts COMPLETE BLOOD STAT 07/05/2016 7:39 PM Abdominal pain, Resu lts for this COUNT-W/DIFF CRM BUSINESS ANALYST unspecified location procedu re are in the results section. COMP METABOLIC PANEL STAT 07/05/2016 7:39 PM Abdominal pain , Results for this CRM BUSINESS ANALYST unspecified location procedu re are in the results section. DIFFERENTIAL STAT 07/05/2016 7:39 PM Results f or this CRM BUSINESS ANALYST procedure are i n the results section. LIPASE STAT 07/05/2016 7:39 PM Abdominal pain, Result s for this CRM BUSINESS ANALYST unspecified location procedu re are in the results section. URINE MICROSCOPIC STAT 07/05/2016 7:31 PM Abdominal pain, R esults for this CRM BUSINESS ANALYST unspecified location procedu re are in the results section. URINALYSIS STAT 07/05/2016 7:31 PM Abdominal pain, Result s for this ROUTINE(MICRO IF POS) CRM BUSINESS ANALYST unspecified locatio n procedure are in the results section. documented in this encounter Results Differential (07/05/2016 7:39 PM CRM BUSINESS ANALYST) P athologist Signature Absolute 6.5 1.8 - [...] Volume Laterality 07/05/2016 7:39 PM 7 7:39 CRM BUSINESS ANALYST PM CRM BUSINESS ANALYST Narrative PN SOFT - 07/05/2016 7:42 PM CRM BUSINESS ANALYST Performed at [facility], [address] [place] [address] CLIA number [id number] Berkley Ty MD LAB_1 Performing Organization Address [facility] Phon e Number PN SOFT [address] [place] [address] (ABNORMAL) Lipase (LIPAS) (07/05/2016 7:39 PM CRM BUSINESS ANALYST) P athologist Signature Lipase 354 (H) 8 - 78 U/L PN SOFT Specimen Anatomical Collection Method Collection Time Receive d Time (Source) Location / / Volume Laterality 07/05/2016 7:39 PM 7 7:39 CRM BUSINESS ANALYST PM CRM BUSINESS ANALYST Narrative PN SOFT - 07/05/2016 7:59 PM CRM BUSINESS ANALYST Performed at [facility], [facility] [address] [address] CLIA number [id number] Berkley Ty MD LAB_1 Performing Organization Address [facility] Phon e Number PN SOFT [address] [place] [address] (ABNORMAL) Comp Metabolic Panel (07/05/2016 7:39 PM CRM BUSINESS ANALYST) Patholo gist Method Time Signature Aspartate 18 [...] Volume Laterality 07/05/2016 7:39 PM 7 7:39 CRM BUSINESS ANALYST PM CRM BUSINESS ANALYST Narrative PN SOFT - 07/05/2016 7:59 PM CRM BUSINESS ANALYST Performed at [facility], [address] [place] [address] CLIA number [id number] Berkley Ty MD LAB_1 Performing Organization Address City/State/ZIP Code Phon e Number PN SOFT [address] [place] [address] (ABNORMAL) Complete Blood Count W/Diff (CBC) (07/05/2016 7:39 PM CRM BUSINESS ANALYST) [facility] Method Time Signature White Blood Cell [...] / / Volume Laterality 07/05/2016 7:39 PM 01/11/201 7 7:39 CRM BUSINESS ANALYST PM CRM BUSINESS ANALYST Narrative PN SOFT - 07/05/2016 7:42 PM CRM BUSINESS ANALYST Performed at [facility], [address] [place] [address] CLIA number [id number] Berkley Ty MD LAB_1 Performing Organization Address [facility] Phon e Number PN SOFT [address] [place] [address] (ABNORMAL) Urine Microscopic (07/05/2016 7:31 PM CRM BUSINESS ANALYST) [facility] Method Time Signature Urine WBC 5-9 (A) 0 - 4 PN SOFT /HPF Urine RBC 0-2 0 - 2 PN SOFT /HPF Bacteria Urine Occasional (A) /HPF PN SOFT Epithelial Few /HPF PN SOFT Cells Specimen Anatomical Collection Method Collection Time Receive d Time (Source) Location / / Volume Laterality 07/05/2016 7:31 PM 7 7:41 CRM BUSINESS ANALYST PM CRM BUSINESS ANALYST Narrative PN SOFT - 07/05/2016 7:48 PM CRM BUSINESS ANALYST Performed at [facility], [address] [place] [address] CLIA number [id number] Berkley Ty MD LAB_1 Performing Organization Address [facility] Phon e Number PN SOFT [address] [place] [address] (ABNORMAL) Urinalysis Routine(Micro If Pos) (07/05/2016 7:31 PM CRM BUSINESS ANALYST) [facility] Method Time Signature Urine Type URINE:clean [...] U Specific 1.015 1.005 - PN SOFT [place] 1.030 Urobilinogen Negative Negative PN SOFT Urine Eu/dL Specimen Anatomical Collection Method Collection Time Receive d Time (Source) Location / / Volume Laterality Urine 07/05/2016 7:31 PM 7 7:41 CRM BUSINESS ANALYST PM CRM BUSINESS ANALYST Narrative DENISE MARIA - 07/05/2016 7:48 PM CRM BUSINESS ANALYST Performed at [facility], [address] [place], [place] [address] [id number] Berkley Ty MD LAB_1 Performing Organization Address City/State/ZIP Code Phon e Number DENISE MARIA [address] [place] [address] documented in this encounter Visit Diagnoses Diagnosis Abdominal pain, unspecified location Acute pancreatitis, unspecified complica tion status, unspecified pancreatitis type Triage Assessment Note - Ifrah Brasher, RN - 07/05/2016 5:28 PM CST C/o epigastric pain, pain feels hot. Also has nausea. Feels spasms in stomach when she swallows. Also has bilat heel pain and redness. Heel pain started today. Pt started Topamax last week. Stopped Topamax Sunday. Pt also fell on ice Sunday and hit her knee into her chest. BUSINESS ANALYST documented in this encounter Care Teams Moulder Operator Relationship Specialty Start Date End Date Found, No Pcp, PCP - General 07/05/16 07/11/16 [address] [place] [address] documented as of this encounter
--- OUTSIDE RECORDS SUMMARY | 2022-05-09 19:27 | XMS_ITS | Encounter Summary ---
:1975 Author Organization [employer] Address [address], [place] [address] Care Team Providers Name Role Phone Found, No Pcp MD Primary Care Provider Unavailable Reason for Referral (Routine) - Closed Specialty Diagnoses / Procedures Referred By Contact Refer red To Contact Diagnoses Epigastric pain Miguelangel Barclay MD Procedures EGD [address] [place], [place] [address] Referral ID Status Reason Start Date Expiration Date Visits Requ ested Visits Authorized [id number] Closed 07/06/2016 10/05/2017 1 1 TUBING DYER Reason for Visit Reason Onset Date Comments APPOINTMENT REQUEST 07/06/2016 Encounter Details Date Type Department Care Team Description 07/06/[address] jae Gramajo MD APPOINTMENT REQUEST Gastroenterology [address] [address] [phone] Social History Tobacco Use Types Packs/Day Years Used Date Smoking Tobacco: Former Cigarettes 0.3 15 Quit : 04/25/2015 Smokeless Tobacco: Never Alcohol Use Standard Drinks/Week Comments Yes 0 (1 standard drink = 0.6 oz pure alcoho l) rarely Sex Assigned at Date Recorded Female 05/09/2021 7:19 PM KNIT TUBING DYER documented as of this encounter Nursing Notes [...] if this began a week ago. Thanks. TUBING DYER Peg Cordero RN - 07/06/2016 8:57 AM CST Patient calling stating she was seen in ER last night for possible pancreatitis. She was told that Dr. Barclay was going to call her today with a plan of care. Please advise. TUBING DYER documented in this encounter Plan of Treatment Upcoming Encounters Date Type Specialty Care Team Description 05/12/2022 Hospital Encounter Chemo Therapy/Infusion Services 09/15/2022 Telemedicine Gastroenterology Eusebio Haines MD [address] [place] [address] documented as of this encounter Results EGD (07/06/2016 11:10 AM KNIT TUBING DYER) Specimen (Source) Anatomical Collection Method Collection Time Re ceived Time Location / / Volume Laterality 07/06/2016 11:10 AM KNIT TUBING DYER Narrative GI ([facility]) - 07/06/2016 11:10 AM KNIT TUBING DYER Patient Name: Idania Duarte Procedure Date: 07/06/2016 [...] Code(s): ?? --- Professional - -- ? 88969, Es ophagogastroduodenoscopy, ? flexible, transoral; with biopsy, ? single or multiple Diagnosis Code(s): ?? --- Professional - -- ? K31.89, O ther diseases of stomach and ? duodenum ? R10.13, E pigastric pain CPT copyright 2014 [employer]. All rights reserved. The codes documented in this report are preliminary and upon label coder review may be revised to meet [...] oxygen saturations were monitored continuously. The flexible [id number] was introduced through the mouth, and advanced [...] be scheduled. Procedure Code(s): --- Professional --- 38530, Esophagogastroduodenoscopy, flexible, transoral; with biopsy, single or multiple Diagnosis Code(s): --- Professional --- K31.89, Other diseases of stomach and duodenum R10.13, Epigastric pain CPT copyright 2014 [employer]. All rights reserved. The codes documented in this report are preliminary and upon label coder review may be revised to meet current compliance requirements. Eduardo Vasquez MD 07/06/2016 12:23:51 PM This document has been electronically si gned. Number of Addenda: 0 Note Initiated On: 07/06/2016 11:10 AM Endoscopy Report Miguelangel Barclay MD PN GI PROCEDURE ORDERABLES Performing Organization Address City/State/ZIP Code Phon e Number GI ([facility]) GI ([facility]) [place], [place] documented in this encounter Visit Diagnoses Diagnosis Epigastric pain - Primary Abdominal pain, epigastric Epigastric pain Abdominal pain, epigastric documented in this encounter Care Teams Boat Hoist Operator Relationship Specialty Start Date End Date Found, No Pcp, PCP - General 07/05/16 07/11/16 [address] [place] [address] documented as of this encounter
--- OUTSIDE RECORDS SUMMARY | 2022-05-09 19:27 | XMS_ITS | Encounter Summary ---
:1975 Author Organization [employer] Address [address] [place] [address] Care Team Providers Name Role Phone Kinga Pickett APRN, CNP Primary Care Provider [phone] Reason for Referral Consult/Transfer Care (Routine) - Closed Specialty Diagnoses / Procedures Referred By Contact Refer red To Contact Diagnoses Abnormal weight gain Lavon Song MD [address] [place] [address] Referral ID Status Reason Start Date Expiration Date Visits Requ ested Visits Authorized [id number] Closed 04/04/2016 07/04/2017 1 1 Scheduling Instructions Your provider has recommended an appoint ment with Cindy Duffy. You may call [phone] to schedule your a ppointment. If you do not schedule an appointment within the next 1 to 3 busin days, we will call you to help arrange your appointment. We suggest you call [employer] about your coverage and benefits for this appointme nt. Encounter Details Date Type Department Care Team Description 04/04/2016 Notes/Orders Lavon Nolasco weig ht gain Obstetrics/Gynecolog jacqueline Suh MD (Primary Dx) [address] [facility] [place] [address] [place] [phone] [address] Social History Tobacco Use Types Packs/Day Years Used Date Smoking Tobacco: Former Cigarettes 0.3 15 Quit : 04/25/2015 Smokeless Tobacco: Never Alcohol Use Standard Drinks/Week Comments Yes 0 (1 standard drink = 0.6 oz pure alcoho l) rarely Sex Assigned at Date Recorded Female 05/09/2021 7:19 PM CAVALRY SCOUT documented as of this encounter Plan of Treatment Upcoming Encounters Date Type Specialty Care Team Description 05/12/2022 Hospital Encounter Chemo Therapy/Infusion Services 09/15/2022 Telemedicine Gastroenterology Eusebio Haines MD [address] [place], [place] [address] Scheduled Referrals Name Type Priority Associated Diagnoses Order S chedule Endocrinology Referral Routine Abnormal weight gain Ordere d: 04/04/2016 Consult-Adults documented as of this encounter Visit Diagnoses Diagnosis Abnormal weight gain - Primary documented in this encounter Care Teams Obstetrics Tech Relationship Specialty Start Date End Date Kinga Pickett, NURSERY LABORER, SUBSEA ENGINEER PCP - General 03/15/15 07/04/16 [address] [place] [address] documented as of this encounter
--- OUTSIDE RECORDS SUMMARY | 2022-05-09 19:27 | XMS_ITS | Encounter Summary ---
:1975 Author Organization [employer] Address [address] [place] [address] Care Team Providers Name Role Phone Kinga Pickett APRN, SIERRA Primary Care Provider [phone] Encounter Details Date Type Department Care Team Description 02/05/2016 Lab Visit [facility] ry Malaise and fatigue [address] [place], [place] [address] Social History Tobacco Use Types Packs/Day Years Used Date Smoking Tobacco: Never Assessed Sex Assigned at Date Recorded Female 05/09/2021 7:19 PM DE ICER ELEMENT WINDER documented as of this encounter Plan of Treatment Upcoming Encounters Date Type Specialty Care Team Description 05/12/2022 Hospital Encounter Chemo Therapy/Infusion Services 09/15/2022 Telemedicine Gastroenterology Eusebio Haines MD [address] [place] [address] documented as of this encounter [...] - 02/07/2016 10:30 AM CDT Performed at [facility], [address] [place] [address] CLIA number [id number] Chandrika Wiggins APRN, CNP LAB_1 Performing Organization Address City/State/ZIP Code Phon e Number HP CONVERSION documented in this encounter Visit Diagnoses Diagnosis Malaise and fatigue Other malaise and fatigue documented in this encounter Care Teams Wound Treatment Rn Relationship Specialty Start Date End Date Kinga Pickett APRN, CNP PCP - General 03/15/15 07/04/16 [address] [place] [address] documented as of this encounter
--- OUTSIDE RECORDS SUMMARY | 2022-05-09 19:27 | XMS_ITS | Encounter Summary ---
:1975 Author Organization [employer] Address [address] [place] [address] Care Team Providers Name Role Phone Needs Pcp, Assignment Primary Care Provider Reason for Visit Reason Comments CONSULT Consult/Transfer Care (Routine) - Closed Specialty Diagnoses / Procedures Referred By Contact Refer red To Contact Diagnoses Calculus of bile duct without cholangitis or biliary obstruction Eduardo Carrizales MD [address] [place], [place] [address] Referral ID Status Reason Start Date Expiration Date Visits Requ ested Visits Authorized [id number] Closed 07/06/2016 10/05/2017 1 1 Encounter Details Date Type Department Care Team Description 07/11/2016 Initial Consult Specialty Center Donovan Lynne Bili [facility] 3931 General Surgery (Primary Dx) [address] [facility]. [address] [facility] [address] [place] [address] [phone] Social History Tobacco Use Types Packs/Day Years Used Date Smoking Tobacco: Former Cigarettes 0.3 15 Quit : 04/25/2015 Smokeless Tobacco: Never Alcohol Use Standard Drinks/Week Comments Yes 0 (1 standard drink = 0.6 oz pure alcoho l) rarely Sex Assigned at Date Recorded Female 05/09/2021 7:19 PM DATA ANALYST REPORT WRITER documented as of this encounter Last Filed Vital Signs Vital Sign Reading Time Taken Comments Blood Pressure 137/83 07/11/2016 9:00 AM DATA ANALYST REPORT WRITER Pulse 126 07/11/2016 9:00 AM DATA ANALYST REPORT WRITER Temperature - - Respiratory Rate - - Oxygen Saturation - - Inhaled Oxygen Concentration - - Weight - - Height - - Body Mass Index - - documented in this encounter Progress Notes Donovan Lynne MD - 07/11/2016 10:14 AM CST NAME: IGGY DUARTE MR#: [id number] CSN: [id number] AUTHENTICATING CLINICIAN: Donovan Lynne MD CONFIRM #: [id number] LOC: 225 CLINIC PROGRESS NOTE DATE OF [...] Occasionally drinks alcohol. 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 PHYSICAL EXAM: Overweight female in no acute [...] was counseling time. CC: [place] [address] [place] [address] NANI RAMOS MD [address] [place] [address] EDUARDO CARRIZALES MD [address] [place] [address] KMH:MEDQ C: CONFIRM #: [id number] ANALYST REPORT WRITER Nataly Ramsey, RN - 07/11/2016 9:15 AM CST Reviewed surgery packet and preop/post op instructions with patient re: laparoscopic cholecystectomy. Per Dr Lynne do not take aspirin 7 days before surgery. All questions were answered. Patient verbalized understanding, is in agreement with the plan, and will call back with any further questions or c oncerns. ANALYST REPORT WRITER documented in this encounter Plan of Treatment Upcoming Encounters Date Type Specialty Care Team Description 05/12/2022 Hospital Encounter Chemo Therapy/Infusion Services 09/15/2022 Telemedicine Gastroenterology Eusebio Haines MD [address] [place] [address] documented as of this encounter Visit Diagnoses Diagnosis Biliary colic - Primary Calculus of gallbladder without mention of cholecystitis or obstruction documented in this encounter Care Teams Weigher Alloy Relationship Specialty Start Date End Date Needs Pcp, Assignment PCP - General 07/12/16 07/12/16 [place] [address] documented as of this encounter
--- OUTSIDE RECORDS SUMMARY | 2022-05-09 19:27 | XMS_ITS | Encounter Summary ---
:1975 Author Organization [employer] Address [address] [place] [address] Care Team Providers Name Role Phone Found, No Pcp Primary Care Provider Unavailable Reason for Referral Procedure/Equipment (Routine) - Incomplete Specialty Diagnoses / Procedures Referred By Contact Refer red To Contact Procedures Ashkan Bejarano MD Abd RUQ Organs [address] [place], [place] [address] Referral ID Status Reason Start Date Expiration Date Visits V isits Requested Authorized [id number] Incomplete 07/05/2016 10/04/2017 1 1 RVISOR INSTANT POTATO PROCESSING Reason for Visit Reason Comments Epigastric Pain Referral Encounter Details Date Type Department Care Team Description 07/05/2016 [facility] Ashkan Bejarano, Calculus of gallbladder without cholecystitis without obstruction; Center Epigastric pain [address] [place] [address] [address] [place] [address] [phone] (Wo rk) Social History Tobacco Use Types Packs/Day Years Used Date Smoking Tobacco: Former Cigarettes 0.3 15 Quit : 04/25/2015 Smokeless Tobacco: Never Alcohol Use Standard Drinks/Week Comments Yes 0 (1 standard drink = 0.6 oz pure alcoho l) rarely Sex Assigned at Date Recorded Female 05/09/2021 7:19 PM SUPERVISOR INSTANT POTATO PROCESSING documented as of this encounter Last Filed Vital Signs Vital Sign Reading Time Taken Comments Blood Pressure 130/78 07/05/2016 11:18 PM SUPERVISOR INSTANT POTATO PROCESSING Pulse 96 07/05/2016 11:18 PM SUPERVISOR INSTANT POTATO PROCESSING Temperature 37.3 ??C (99.1 ??F) 07/05/2016 9:13 PM SUPERVISOR INSTANT POTATO PROCESSING Respiratory Rate 18 07/05/2016 9:13 PM SUPERVISOR INSTANT POTATO PROCESSING Oxygen Saturation 100% 07/05/2016 11:18 PM SUPERVISOR INSTANT POTATO PROCESSING Inhaled Oxygen Concentration - - Weight - - Height - - Body Mass Index - - documented in this encounter Discharge Instructions Discharge InstructionsAshkan Bejarano MD - 07/05/2016 11:07 PM SUPERVISOR INSTANT POTATO PROCESSING Indigestion (Dyspepsia or Heartburn): Care Instructions Your Care Instructions Sometimes it can be hard to pinpoint the cause of indigestion (dyspepsia or heartburn). Most cases of an upset stomach with bloating, burning, burping, and nausea are minor and go away within several hours. Home treatment and nhlc-kjw-wtsjoht medicine often are able to control symptoms. [...] at home? ?? Your doctor may recommend dujb-itx-ibndfhj medicine. For mild or occasional indigestion, antacidssuch as Tums, Gaviscon, Mylanta, or Maalox may help. Your doctor also may recommend shfk-qrv-cqcakotcxuv reducers, such as Pepcid AC, Tagamet HB, [...] can you learn more? 1. Go to [employer] or [employer] 2. Enter W912 in the search box. Current as of: May 14, 2015 Content Version: 109 ?? [id number] [place], Personal [facility]. RVISOR INSTANT POTATO PROCESSING documented in this encounter Medications at Time [...] The patient was safely discharged to home. Ashkan Joel MD - 07/05/2016 9:32 PM CST Chief [...] also nauseated. [facility], with a white count of [...] reviewed and are negative. Triage Vitals Temp 07/05/16 2113 37.3 ??C (99.1 ??F) Temp src 07/05/162112 Oral Pulse 07/05/163 116 Resp 07/05/163 18 BP 07/05/162112 152/88 mmHg SpO2 07/05/162112 [...] had. The patient was given prescription for Dodge. The patient was discharged home with instructions [...] Making: Pleasant 41 y.o. female employed in [employer] presenting to the ER with chief complaint [...] has already doing, I will add on Dodge for her pain. I did discuss with [...] and the provider's statements to me. 07/05/2016 [facility] Ashkan Bejarano MD 07/06/16 0421 RVISOR INSTANT POTATO PROCESSING Paty Barajas HUC - 07/05/2016 8:39 PM CST Referred from by Dr. Ty for epigastric pain. Background/plan: 11 white count, Lipase 354. Evaluate Means of arrival: private vehicle Call back: none RVISOR INSTANT POTATO PROCESSING documented in this encounter Plan of Treatment Upcoming Encounters Date Type Specialty Care Team Description 05/12/2022 Hospital Encounter Chemo Therapy/Infusion Services 09/15/2022 Telemedicine Gastroenterology Eusebio Haines MD [address] [place], [place] [address] documented as of this encounter Procedures Procedure Name Priority Date/Time Associated Diagnosis Comme nts US ABD RUQ ORGANS STAT 07/05/2016 10:48 PM Res ults for this SUPERVISOR INSTANT POTATO PROCESSING procedure are i n the results section. COMPLETE BLOOD STAT 07/05/2016 10:10 PM Result s for this COUNT-NO DIFF SUPERVISOR INSTANT POTATO PROCESSING procedure are in the results section. EMERGENCY CENTER STAT 07/05/2016 10:09 PM Resu lts for this DRAW AND HOLD SUPERVISOR INSTANT POTATO PROCESSING procedure are in the results section. ANION GAP STAT 07/05/2016 10:09 PM Results for this SUPERVISOR INSTANT POTATO PROCESSING procedure are i n the results section. LIVER PANEL(HEPATIC STAT 07/05/2016 10:09 PM R esults for this FUNCTION PANEL) SUPERVISOR INSTANT POTATO PROCESSING procedure ar e in the results section. BASIC METABOLIC STAT 07/05/2016 10:09 PM Resul ts for this PANEL SUPERVISOR INSTANT POTATO PROCESSING procedure are i n the results section. documented in this encounter Results US Abd RUQ Organs (07/05/2016 10:48 PM SUPERVISOR INSTANT POTATO PROCESSING) Anatomical Region Laterality Modality Abdomen Ultrasound Specimen (Source) Anatomical Collection Method Collection Time Re ceived Time Location / / Volume Laterality 07/05/2016 10:23 PM SUPERVISOR INSTANT POTATO PROCESSING Impressions 07/05/2016 10:51 PM SUPERVISOR INSTANT POTATO PROCESSING IMPRESSION: Cholelithiasis without sonographic findings of cholecystitis. Narrative 07/05/2016 10:51 PM SUPERVISOR INSTANT POTATO PROCESSING COMPARISON: ??None. FINDINGS: ?? Pancreas: Appears unremarkable. [...] Complete Blood Count-No Diff (07/05/2016 10:10 PM SUPERVISOR INSTANT POTATO PROCESSING) P athologist Signature White Blood Cell 10.4 [...] / Volume Laterality 07/05/2016 10:10 07/05/2016 PM SUPERVISOR INSTANT POTATO PROCESSING 10:18 PM SUPERVISOR INSTANT POTATO PROCESSING Narrative PN SOFT - 07/05/2016 10:23 PM SUPERVISOR INSTANT POTATO PROCESSING [place] [address] CLIA number [id number] Ashkan Bejarano MD LAB_1 Performing Organization Address [place] Phon e Number PN SOFT [address] [place] [address] Emergency Center Draw And Hold (07/05/2016 10:09 PM SUPERVISOR INSTANT POTATO PROCESSING) athologist Signature Emergency Drawn PN SOFT Center Draw And Hold Extra Lavender Drawn PN SOFT Top Drawn Extra PST Top Drawn PN SOFT Drawn Extra SST Top Drawn PN SOFT Drawn Specimen Anatomical Collection Method Collection Time Receive d Time (Source) Location / / Volume Laterality 07/05/2016 10:09 07/05/2016 PM SUPERVISOR INSTANT POTATO PROCESSING 10:18 PM SUPERVISOR INSTANT POTATO PROCESSING Narrative PN SOFT - 07/06/2016 1:07 AM SUPERVISOR INSTANT POTATO PROCESSING Performed at [address] [address] CLIA number [id number] Ashkan Bejarano MD LAB_1 Performing Organization Address [facility] Phon e Number PN SOFT [address] [place] [address] Anion Gap (07/05/2016 10:09 PM SUPERVISOR INSTANT POTATO PROCESSING) athologist Signature ANION GAP 10 0 - 16 mEq/L PN SOFT Specimen Anatomical Collection Method Collection Time Receive d Time (Source) Location / / Volume Laterality 07/05/2016 10:09 07/05/2016 PM SUPERVISOR INSTANT POTATO PROCESSING 10:18 PM SUPERVISOR INSTANT POTATO PROCESSING Narrative PN SOFT - 07/05/2016 10:38 PM SUPERVISOR INSTANT POTATO PROCESSING Performed at [place] [address] CLIA number [id number] Ashkan Bejarano MD LAB_1 Performing Organization Address [facility] Phon e Number PN SOFT [address] [place] [address] Hepatic Function Panel (07/05/2016 10:09 PM SUPERVISOR INSTANT POTATO PROCESSING) [facility] gist Method Time Signature Alk Phos 102 [...] / Volume Laterality 07/05/2016 10:09 07/05/2016 PM SUPERVISOR INSTANT POTATO PROCESSING 10:18 PM SUPERVISOR INSTANT POTATO PROCESSING Narrative PN SOFT - 07/05/2016 10:38 PM SUPERVISOR INSTANT POTATO PROCESSING Performed at [address] [address] CLIA number [id number] Ashkan Bejarano MD LAB_1 Performing Organization Address [place] Phon e Number PN SOFT [address] [place] [address] (ABNORMAL) Basic Metabolic Panel (07/05/2016 10:09 PM SUPERVISOR INSTANT POTATO PROCESSING) athologist Signature Creatinine 0.78 0.55 - PN [...] / Volume Laterality 07/05/2016 10:09 07/05/2016 PM SUPERVISOR INSTANT POTATO PROCESSING 10:18 PM SUPERVISOR INSTANT POTATO PROCESSING Narrative PN SOFT - 07/05/2016 10:38 PM SUPERVISOR INSTANT POTATO PROCESSING Performed at [facility], [address] [place] [address] CLIA number [id number] Ashkan Bejarano MD LAB_1 Performing Organization Address City/State/ZIP Code Phon e Number PN SOFT [address] [place] [address] documented in this encounter Visit Diagnoses Diagnosis [...] past 4 to 6 hours. Continous BCP RVISOR INSTANT POTATO PROCESSING documented in this encounter Care Teams Guardian Ad Litem Relationship Specialty Start Date End Date Found, No Pcp, PCP - General 07/05/16 07/11/16 [address] [place] [address] documented as of this encounter
--- OUTSIDE RECORDS SUMMARY | 2022-05-09 19:27 | XMS_ITS | Encounter Summary ---
:1975 Author Organization [employer] Address [address] [place] [address] Care Team Providers Name Role Phone Found, No Pcp MD Primary Care Provider Unavailable Reason for Visit Reason Onset Date Comments [facility] 07/05/2016 Encounter Details Date Type Department Care Team Description 07/05/2016 Nurse Triage [place] [facility] Found, No Pcp, [facility] Medicine [address] [place] [id number] Social History Tobacco Use Types Packs/Day Years Used Date Smoking Tobacco: Former Cigarettes 0.3 15 Quit : 04/25/2015 Smokeless Tobacco: Never Alcohol Use Standard Drinks/Week Comments Yes 0 (1 standard drink = 0.6 oz pure alcoho l) rarely Sex Assigned at Date Recorded Female 05/09/2021 7:19 PM CLAIM PROCESSING SPECIALIST documented as of this encounter Nursing Notes Ifrah Betts RN - 07/05/2016 12:53 PM CST Protocol: ABDOMINAL PAIN - [id number] Affirmative: Constant abdominal pain lasting > 2 hours Disposition of Go to ED/[facility] Now (with PCP acknowledgement) suggested. Pt reports burning in upper abd. It comes in waves. Has had symptoms x 1 week. Located from navel tobreast bone, rates pain at 5/10, nighttime worse. Even when she drinks water the area mason. Triedincreasing doses of Prilosec (60mg), Tums, Mylanta, with no relief. She states she is working, so she will go to after work M PROCESSING SPECIALIST Lorenzo Bhardwaj - 07/05/2016 12:42 PM CST Pt says she may have an ulcer and requesting to speak to a nurse. M PROCESSING SPECIALIST documented in this encounter Plan of Treatment Upcoming Encounters Date Type Specialty Care Team Description 05/12/2022 Hospital Encounter Chemo Therapy/Infusion Services 09/15/2022 Telemedicine Gastroenterology Eusebio Haines MD [address] [place] [address] documented as of this encounter Visit Diagnoses Not on filedocumented in this encounter Care Teams Performance Consultant Relationship Specialty Start Date End Date Found, No MD El PCP - General 07/05/16 07/11/16 [address] [place] [address] documented as of this encounter
--- OUTSIDE RECORDS SUMMARY | 2022-05-09 19:27 | XMS_ITS | Encounter Summary ---
:1975 Author Organization [employer] Address [address] [place] [address] Care Team Providers Name Role Phone Kinga Pickett APRN, CNP Primary Care Provider [phone] Encounter Details Date Type Department Care Team Description 02/05/2016 Lab Visit [place] [facility] Screening for diabetes melli tus; [address] Encounter for screening for lipoid disorders; [place], [place] [address] Screening for deficiency ane juliana; [phone] Screening for t hyroid disorder Social History Tobacco Use Types Packs/Day Years Used Date Smoking Tobacco: Never Assessed Sex Assigned at Date Recorded Female 05/09/2021 7:19 PM AERODYNAMICS ENGINEER documented as of this encounter Plan of Treatment Upcoming Encounters Date Type Specialty Care Team Description 05/12/2022 Hospital Encounter Chemo Therapy/Infusion Services 09/15/2022 Telemedicine Gastroenterology Eusebio Haines MD [address] [place], [place] [address] documented as of this encounter Procedures Procedure [...] - 02/05/2016 3:54 PM CDT Performed at [facility], [address] [place] [address] CLIA number [id number] Sheeba Castillo CORPORATE LEGAL MANAGER, CASTING MACHINE SERVICE OPERATOR LAB_1 Performing Organization Address City/State/ZIP Code [...] - 02/05/2016 4:50 PM CDT Performed at [facility], [address] [place] [address] CLIA number [id number] Sheeba Castillo APRN, CNP LAB_1 Performing Organization Address [facility] Phon e Number HP CONVERSION Hemoglobin, Blood (02/05/2016 10:39 AM CDT) P athologist Signature Hemoglobin 14.6 11.8 - 15.5 HP CONVERSION g/dL Specimen Anatomical Collection Method Collection Time Receive d Time (Source) Location / / Volume Laterality 02/05/2016 10:39 02/05/2016 AM CDT 10:39 AM CDT Narrative HP CONVERSION - 02/05/2016 10:45 AM CDT Performed at [facility], [address] [place] [address] CLIA number [id number] Sheeba Castillo APRN, CNP LAB_1 Performing Organization Address [facility] Phon e Number HP CONVERSION Lipid Panel and Direct LDL(If Needed) (02/05/2016 10:39 AM CDT) [facility] gist Method Time Signature Cholesterol 177 0 [...] - 02/05/2016 3:54 PM CDT Performed at [facility], [address] [place] [address] CLIA number [id number] Sheeba Castillo APRN, CNP LAB_1 Performing Organization Address [facility] Phon e Number HP CONVERSION documented in this encounter Visit Diagnoses Diagnosis Screening for diabetes mellitus Encounter for screening for lipoid disor ders Screening for lipoid disorders Screening for deficiency anemia Screening for other and unspecified defi ciency anemia Screening for thyroid disorder documented in this encounter Care Teams Explosives Truck Driver Relationship Specialty Start Date End Date Kinga Pickett, CORPORATE LEGAL MANAGER, CASTING MACHINE SERVICE OPERATOR PCP - General 03/15/15 07/04/16 [address] [place] [address] documented as of this encounter
--- OUTSIDE RECORDS SUMMARY | 2022-05-09 19:27 | XMS_ITS | Encounter Summary ---
:1975 Author Organization [employer] Address [address] [place] [address] Care Team Providers Name Role Phone Kinga Pickett APRN, CNP Primary Care Provider [phone] Reason for Visit Reason Comments WEIGHT GAIN Encounter Details Date Type Department Care Team Description 02/05/2016 Office Visit [facility] Chandrika Wiggins Essent ial hypertension (Primary Dx); Medicine [place] Obesity (BMI 30-39.9); [address] fatigue; [address] Fely Kearney Edema of extremities [place], [place] [address] [place], [place] [phone] [address] Social History Tobacco Use Types Packs/Day Years Used Date Smoking Tobacco: Never Assessed Sex Assigned at Date Recorded Female 05/09/2021 7:19 PM ELECTRIC TRACK SWITCH MAINTAINER documented as of this encounter Last Filed [...] in this encounter Progress Notes Chandrika Wiggins, WALLPAPER SCRAPER, CONVEYOR SYSTEM OPERATOR - 02/05/2016 10:58 AM CDT SUBJECTIVE: HPI/ROS: 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 Has used [...] 09/15/2022 Telemedicine Gastroenterology Eusebio Haines MD [address] [place] [address] documented as of this encounter Visit Diagnoses Diagnosis Essential hypertension (HRC) - Primary Unspecified essential hypertension Obesity (BMI 30-39.9) (HRC) Obesity, unspecified Malaise and fatigue Other malaise and fatigue Edema of extremities Edema documented in this encounter Care Teams Broker Assistant Relationship Specialty Start Date End Date Kinga Pickett APRN, CONVEYOR SYSTEM OPERATOR PCP - General 03/15/15 07/04/16 [address] [place] [address] documented as of this encounter
--- OUTSIDE RECORDS SUMMARY | 2022-05-09 19:27 | XMS_ITS | Encounter Summary ---
:1975 Author Organization [facility] Address [address] [place] [address] Care Team Providers Name Role Phone Kinga Pickett APRN, CNP Primary Care Provider [phone] Reason for Visit Reason Comments WEIGHT GAIN Consult/Transfer Care (Routine) - Closed Specialty Diagnoses / Procedures Referred By Contact Refer red To Contact Diagnoses Abnormal weight gain Olive Gan MD [address] [place], [place] [address] Referral ID Status Reason Start Date Expiration Date Visits Requ ested Visits Authorized [id number] Closed 04/04/2016 07/04/2017 1 1 Encounter Details Date Type Department Care Team Description 05/29/2016 Initial Consult [facility] [address] normal weight gain (Primary Dx); Endocrinology MD Sergio Morbid obesity due to excess calories (H RC) [address] [place] [address] [id number] Social History Tobacco Use Types Packs/Day Years Used Date Smoking Tobacco: Former Cigarettes 0.3 15 Quit : 04/25/2015 Smokeless Tobacco: Never Alcohol Use Standard Drinks/Week Comments Yes 0 (1 standard drink = 0.6 oz pure alcoho l) rarely Sex Assigned at Date Recorded Female 05/09/2021 7:19 PM WEB ANALYTICS DEVELOPER documented as of this encounter Last Filed Vital Signs Vital Sign Reading Time Taken Comments Blood Pressure 130/76 05/29/2016 2:14 PM WEB ANALYTICS DEVELOPER Pulse 86 05/29/2016 2:14 PM WEB ANALYTICS DEVELOPER Temperature - - Respiratory Rate - - Oxygen Saturation - - Inhaled Oxygen Concentration - - Weight 95.7 kg (210 lb 14.4 oz) 05/29/2016 2:14 PM WEB ANALYTICS DEVELOPER Height 168.9 cm (5' 6.5) 05/29/2016 2:14 PM WEB ANALYTICS DEVELOPER Body Mass Index 33.53 05/29/2016 2:14 PM WEB ANALYTICS DEVELOPER documented in this encounter Progress Notes [place] Mend[place] MD - 05/29/2016 5:30 PM CST NAME: IADNIA DUARTE MR#: [id number] CSN: [id number] AUTHENTICATING CLINICIAN: La Mendosa MD CONFIRM #: [id number] LOC: 432 CLINIC PROGRESS NOTE DATE OF [...] about 3 months. CC: OLIVE GAN MD [address] [place] [address] RMM:MEDQ C: CONFIRM #: [id number] ANALYTICS DEVELOPER documented in this encounter Plan of Treatment Upcoming Encounters Date Type Specialty Care Team Description 05/12/2022 Hospital Encounter Chemo Therapy/Infusion Services 09/15/2022 Telemedicine Gastroenterology Eusebio Haines MD [address] [place] [id number] documented as of this encounter Results Vitamin D (In house) (05/29/2016 3:29 PM WEB ANALYTICS DEVELOPER) athologist Signature Vitamin D 25 Oh 62 20 - 80 PN SOFT ng/mL Comment: Deficiency = <20 Adequate ??= 20-29 Preferred = 30-50 Uncertain safety = 51-80 High = >80 Specimen Anatomical Collection Method Collection Time Receive d Time (Source) Location / / Volume Laterality 05/29/2016 3:29 PM 6 7:40 WEB ANALYTICS DEVELOPER PM WEB ANALYTICS DEVELOPER Narrative PN SOFT - 05/29/2016 9:03 PM WEB ANALYTICS DEVELOPER Performed at [facility] [address] [place] [address] CLIA number [id number] .Cortisal Saliva La Mendosa MD LAB_1 Performing Organization Address City/State/ZIP Code Phon e Number PN SOFT [address] [place] [address] [phone] BMP - Basic Metabolic Panel (05/29/2016 3:29 PM WEB ANALYTICS DEVELOPER) athologist Signature Creatinine Serum 0.70 0.55 - [...] Volume Laterality 05/29/2016 3:29 PM 6 3:29 WEB ANALYTICS DEVELOPER PM WEB ANALYTICS DEVELOPER Narrative PN SOFT - 05/29/2016 4:02 PM WEB ANALYTICS DEVELOPER Performed at [facility], [address] [place] [address] CLIA number [id number] .Cortisal Saliva La Mendosa MD LAB_1 Performing Organization Address City/State/ZIP Code Phon e Number PN SOFT [address] [place] [address] PTH - Parathyroid Hormone Intact (05/29/2016 3:29 PM WEB ANALYTICS DEVELOPER) athologist Signature PTH 62 10 - 100 PN SOFT pg/mL Specimen Anatomical Collection Method Collection Time Receive d Time (Source) Location / / Volume Laterality 05/29/2016 3:29 PM 6 6:36 WEB ANALYTICS DEVELOPER PM WEB ANALYTICS DEVELOPER Narrative PN SOFT - 05/29/2016 7:37 PM WEB ANALYTICS DEVELOPER Performed at [facility], [address] [facility] [facility], [place] [address] CLIA number [id number] .Cortisal Saliva La Mendosa MD LAB_1 Performing Organization Address City/State/ZIP Code Phon e Number PN SOFT [address] [place] [address] Cortisol Saliva (05/29/2016 10:10 AM WEB ANALYTICS DEVELOPER) athologist Signature Saliva 1010 pm PN SOFT Collection Time Cortisol Saliva 0.065 ug/dL PN SOFT Comment: INTERPRETIVE INFORMATION: Cortisol, Sali va Effective 07/17/2005 For collection at 2300 hr. the normal co rtisol concentration is less than 0.112 ug/dL. ??Patients with Cushings Syndrome have concentrations of 0.112 ug/dL or greater. ? a.m. ([phone] ) ?p.m. (noon-1800) Males ??2.5-7 years ?? [...] older ??0.149-0.739 ug/dL ?0.022-0.254 ug/dL Performed by [facility], [address] [place] [address] [email or web address], Darrell Dee MD - Lab. Director Specimen Anatomical Collection Method Collection Time Receive d Time (Source) Location / / Volume Laterality 05/29/2016 10:10 05/30/2016 AM WEB ANALYTICS DEVELOPER 12:21 PM WEB ANALYTICS DEVELOPER Narrative PN SOFT - 06/01/2016 6:31 PM WEB ANALYTICS DEVELOPER Performed at [facility] [address] [place] [address] CLIA number [id number] La Mendosa MD LAB_1 Performing Organization Address City/State/ZIP Code Phon e Number PN SOFT [address] [place], [place] [phone] documented in this encounter Visit Diagnoses Diagnosis Abnormal weight gain - Primary Morbid obesity due to excess calories (H RC) Abnormal weight gain Abnormal weight gain documented in this encounter Care Teams Head Of Merchandise Buying Relationship Specialty Start Date End Date Kinga Pickett, SATIN FINISHER, FIRE EXTINGUISHER CHARGER PCP - General 03/15/15 07/04/16 [address] [place] [address] documented as of this encounter
--- OUTSIDE RECORDS SUMMARY | 2022-05-09 19:28 | XMS_ITS | Encounter Summary ---
:1975 Author Organization [facility] Address [address] [place] [address] Care Team Providers Name Role Phone Hoang Peacock APRN, CNP Primary Care Provider [phone] Encounter Details Date Type Department Care Team Description 11/23/2015 Refill Order [facility] Hoang Morrow, [address] [facility] [place] [address] 9[address] [facility] [phone] [facility] N [address] (Wo rk) Social History Tobacco Use Types Packs/Day Years Used Date Smoking Tobacco: Never Assessed Sex Assigned at Date Recorded Female 05/09/2021 7:19 PM HOUSE REPAIRER documented as of this encounter Nursing Notes [...] - NEXT LAB APPOINTMENT: None [facility] by [facility], Reference: [id number], 11/23/2015 10:36:06 AM CDT, Pool: DEANDRA FP REFILL ([id number]) Ivette Gordillo CMA - 11/24/2015 11:13 AM CDT Lab orders have been placed per protocol. documented in this encounter Plan of Treatment Upcoming Encounters Date Type Specialty Care Team Description 05/12/2022 Hospital Encounter Chemo Therapy/Infusion Services 09/15/2022 Telemedicine Gastroenterology Eusebio Haines MD [address] [place], [place] [address] documented as of this encounter Visit Diagnoses Diagnosis Encounter for long-term (current) use of medications - Primary Encounter for long-term (current) use of other medications documented in this encounter Care Teams Head Packager Relationship Specialty Start Date End Date Hoang Peacock EMERGENCY DEPARTMENT PHYSICIAN, SAMPLE BOX MAKER PCP - General 03/15/15 07/04/16 [address] [place], [place] [id number] documented as of this encounter
--- OUTSIDE RECORDS SUMMARY | 2022-05-09 19:28 | XMS_ITS | Encounter Summary ---
:1975 Author Organization [facility] Address [address] [place] [address] Care Team Providers Name Role Phone Kinga Pickett APRN, CNP Primary Care Provider [phone] Reason for Visit Reason Comments Refill Encounter Details Date Type Department Care Team Description 07/02/2015 Refill [facility] Kinga Morrow APRN, Refill [address] [place] [address] [facility] [phone] [facility] [address] [address] (Wo rk) Social History Tobacco Use Types Packs/Day Years Used Date Smoking Tobacco: Never Assessed Sex Assigned at Date Recorded Female 05/09/2021 7:19 PM COUNTER PERSON documented as of this encounter Nursing Notes Adri Sanchez LPN - 07/02/2015 1:59 PM CST Message to pt with Clay note below TER PERSON Matilde Vera - 07/02/2015 1:44 PM CST Rx faxed TER PERSON Sheeba Castillo APRN, CNP - 07/02/2015 1:32 PM CST Call pt. Lorazepam refilled. She is due for follow up visit next week. No appt scheduled. TER PERSON Matilde Vera - 07/02/2015 10:34 AM CST Last fill date: 06-12-15 for #15 per the pharmacy Last seen: 06-12-15 No upcoming appts TER PERSON documented in this encounter Plan of Treatment Upcoming Encounters Date Type Specialty Care Team Description 05/12/2022 Hospital Encounter Chemo Therapy/Infusion Services 09/15/2022 Telemedicine Gastroenterology Eusebio Haines MD [address] [place] [address] documented as of this encounter Visit Diagnoses Diagnosis Situational stress (HRC) - Primary Other psychological or physical stress, not elsewhere classified documented in this encounter Care Teams Chin Strap Sewer Relationship Specialty Start Date End Date Kinga Pickett APRN, CNP PCP - General 03/15/15 07/04/16 [address] [place], [place] [id number] documented as of this encounter
--- OUTSIDE RECORDS SUMMARY | 2022-05-09 19:28 | XMS_ITS | Encounter Summary ---
:1975 Author Organization [employer] Address [address] [place] [address] Care Team Providers Name Role Phone Kinga Pickett APRN, NATIONAL SALES TRAINER Primary Care Provider [phone] Reason for Visit Reason Comments Eye Exam Encounter Details Date Type Department Care Team Description 07/13/2015 Office Visit Serafin Galvan Examinatio n of eyes and vision (Primary Dx); Ophthalmology OD Myopia with astigmatism, bilateral [address] [place] [address] Blvd [phone] [place] [address] (Wo rk) Social History Tobacco Use Types Packs/Day Years Used Date Smoking Tobacco: Never Assessed Sex Assigned at Date Recorded Female 05/09/2021 7:19 PM MIXED ANIMAL VETERINARIAN documented as of this encounter Progress Notes Serafin Mariee, OD - 07/13/2015 11:56 AM CST General medical assessment: Patient is alert. Basically healthy. Assessment: Diagnosis and Associated Orders ICD-10-CM ICD-9-CM 1. Examination of eyes and vision Z01.00 V72.0 MA REFRACTION 2. Myopia with astigmatism, bilateral H52.13 367.1 MA REFRACTION Plan: 1. Discussed findings with patient. 2. Glasses Rx given. 3. Return to clinic in 1 year(s) or as needed. D ANIMAL VETERINARIAN documented in this encounter Plan of Treatment Upcoming Encounters Date Type Specialty Care Team Description 05/12/2022 Hospital Encounter Chemo Therapy/Infusion Services 09/15/2022 Telemedicine Gastroenterology Eusebio Haines MD [address] [place], [place] [address] documented as of this encounter Visit Diagnoses Diagnosis Examination of eyes and vision - Primary Myopia with astigmatism, bilateral documented in this encounter Care Teams Green Chain Puller Relationship Specialty Start Date End Date Kinga Pickett, TAX RECORD CLERK, NATIONAL SALES TRAINER PCP - General 03/15/15 07/04/16 [address] [place] [address] documented as of this encounter
--- OUTSIDE RECORDS SUMMARY | 2022-05-09 19:28 | XMS_ITS | Encounter Summary ---
:1975 Author Organization [facility] Address [address] [place] [address] Care Team Providers Name Role Phone Kinga Pickett APRN, SIERRA Primary Care Provider [phone] Encounter Details Date Type Department Care Team Description 09/01/2015 Lab Visit [facility] Chronic diarrhea; [address] [facility] [place] [address] Social History Tobacco Use Types Packs/Day Years Used Date Smoking Tobacco: Never Assessed Sex Assigned at Date Recorded Female 05/09/2021 7:19 PM JAVA TECH LEAD documented as of this encounter Plan of Treatment Upcoming Encounters Date Type Specialty Care Team Description 05/12/2022 Hospital Encounter Chemo Therapy/Infusion Services 09/15/2022 Telemedicine Gastroenterology Eusebio Haines MD [address] [place] [address] documented as of this encounter Procedures Procedure Name Priority Date/Time Associated Comments Diagnosis COMPLETE BLOOD Routine 09/01/2015 1:52 PM Chronic diarr hea Results for this COUNT-W/DIFF JAVA TECH LEAD Hematochezia procedure are i n the results section. DIFFERENTIAL Routine 09/01/2015 1:52 PM Results f or this JAVA TECH LEAD procedure are i n the results section. C-REACTIVE PROTEIN Routine 09/01/2015 1:52 PM Chronic di arrhea Results for this JAVA TECH LEAD Hematochezia procedure are i n the results section. documented in this encounter Results Differential (09/01/2015 1:52 PM JAVA TECH LEAD) Analysis Performed At Patho logist Time Signature [...] Volume Laterality 09/01/2015 1:52 PM 6 1:52 JAVA TECH LEAD PM JAVA TECH LEAD Narrative HP CONVERSION - 09/01/2015 1:57 PM JAVA TECH LEAD Performed at [facility], [facility] [address] [place] [address] CLIA number [id number] Eileen Bernabe APRN, CNP LAB_1 Performing Organization Address [facility] Phon e Number HP CONVERSION (ABNORMAL) C-Reactive Protein (09/01/2015 1:52 PM JAVA TECH LEAD) athologist [facility] CRP 1.1 (H) 0.0 - 0.5 HP CONVERSION mg/dL Specimen Anatomical Collection Method Collection Time Receive d Time (Source) Location / / Volume Laterality 09/01/2015 1:52 PM 6 1:52 JAVA TECH LEAD PM JAVA TECH LEAD Narrative HP CONVERSION - 09/01/2015 5:37 PM JAVA TECH LEAD Performed at [facility], [facility] [address] [place] [address] CLIA number [id number] Eileen Bernabe APRN ICT SALES REPRESENTATIVE LAB_1 Performing Organization Address City/[facility] Phon e Number HP CONVERSION Complete Blood Count W/Diff (09/01/2015 1:52 PM JAVA TECH LEAD) athologist Signature White Blood Cell 10.3 3.8 [...] Volume Laterality 09/01/2015 1:52 PM 6 1:52 JAVA TECH LEAD PM JAVA TECH LEAD Narrative HP CONVERSION - 09/01/2015 1:57 PM JAVA TECH LEAD Performed at [facility], [address] [place] [address] CLIA number [id number] Eileen Bernabe APRN, CNP LAB_1 Performing Organization Address City/State/ZIP Code Phon e Number HP CONVERSION documented in this encounter Visit Diagnoses Diagnosis Chronic diarrhea Diarrhea Hematochezia Blood in stool documented in this encounter Care Teams Glass Handler Relationship Specialty Start Date End Date Kinga Pickett APRN, SIERRA PCP - General 03/15/15 07/04/16 [address] [place] [address] documented as of this encounter
--- OUTSIDE RECORDS SUMMARY | 2022-05-09 19:28 | XMS_ITS | Encounter Summary ---
:1975 Author Organization [facility] Address [address] [place] [address] Care Team Providers Name Role Phone Kinga Pickett APRN, CNP Primary Care Provider [phone] Reason for Visit Reason Comments Follow-up Encounter Details Date Type Department Care Team Description 11/18/2015 Office Visit Eileen White, Ryland ul cerative Gastroenterology SIER[place] GRANT colitis with rectal [address] guerrero (HRC) [place] [address] [place], [place] (Primary Dx) [phone] (Wo rk) Social History Tobacco Use Types Packs/Day Years Used Date Smoking Tobacco: Never Assessed Sex Assigned at Date Recorded Female 05/09/2021 7:19 PM TRAFFIC CONTROL FLAGGER documented as of this encounter Last Filed [...] issues addressed.If not please call us at [phone] option 2 or My Chart message me. [...] 5:40 PM CDT Name: Idania Duarte MR#: [id number] CSN: [id number] Date of Visit: 11/18/2015 : 1975 Chief [...] issues addressed.If not please call us at [phone] option 2 or My Chart message me. [...] Services 09/15/2022 Telemedicine Gastroenterology Eusebio Haines MD [address] [place] [address] documented as of this encounter Visit Diagnoses Diagnosis Other ulcerative colitis with rectal ble eding (HRC) - Primary documented in this encounter Care Teams Rail Crew Member Relationship Specialty Start Date End Date Kinga Pickett APRN, HIGH SCHOOL LIBRARY MEDIA SPECIALIST PCP - General 03/15/15 07/04/16 [address] [place], [place] [address] documented as of this encounter
--- OUTSIDE RECORDS SUMMARY | 2022-05-09 19:28 | XMS_ITS | Encounter Summary ---
:1975 Author Organization [facility] Address [address] [place] [address] Care Team Providers Name Role Phone Kinga Pickett APRN, CNP Primary Care Provider [phone] Reason for Visit Reason Comments Annual Exam Encounter Details Date Type Department Care Team Description 11/18/2015 Office Visit [facility] Sheeba Mcgowan exam with routine gynecological exam (Primary Dx); Medicine C, RUDY, SIERRA Essential hypertension; [address] [address] [address] Overweight; [place] [address] [place], [place] Screening for thyroid disord er; [phone] Screening for deficiency anemia; [phone] Encounter for s creening for lipoid disorders; (Work) Screening for diabetes mellitus; Routine s creening for STI (sexually transmitted infection) Social History Tobacco Use Types Packs/Day Years Used Date Smoking Tobacco: Never Assessed Sex Assigned at Date Recorded Female 05/09/2021 7:19 PM COMMERCIAL ANALYST documented as of this encounter Last [...] - 11/18/2015 10:58 AM CDT Iggy Duarte [id number] 1975 SUBJECTIVE: IGGY DUARTE is a 40 [...] patient mentioned today that she went to [employer] last weekend. She went to a bar [...] ??? Tonsillectomy ??? Cyst removal left wrist LITHOPRESS OPERATOR HISTORY: OB History Para Term AB [...] (DELTASONE) 10 mg tablet Take with food. 50ehs04d, 30 mgx14d, 20 mg x14d, 15 mg [...] friend. No children. 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 HABITS: Tobacco: Former smoker [...] a healthy, well-balanced diet, and sun protection. Seheba Castillo APRN, [facility] NB: A voice recognition dictation system was used for this note. Please excuse any typographical errors. ERCIAL ANALYST documented in this encounter Plan of Treatment Upcoming Encounters Date Type Specialty Care Team Description 05/12/2022 Hospital Encounter Chemo Therapy/Infusion Services 09/15/2022 Telemedicine Gastroenterology Eusebio Haines MD [address] [place] [address] documented as of this encounter Procedures Procedure Name Priority Date/Time Associated Diagnosis Comme nts CHLAMYDIA & GC (14 Routine 11/18/2015 10:59 AM Routine screeni ng Results for this YEARS AND OLDER) CDT for STI (sexually proced ure are in transmitted the results infection) section. documented in this encounter Results Chlamydia & GC (11/18/2015 10:59 AM CDT) [facility] Method Time Signature Chlamydia Negative Negative HP CONVERSION Trachomatis STD Comment: Test Performed by Legal Department Manager Mediated Amplification CLIA Number [id number] N. gonorrhoeae STD Negative Negative HP CONVERSI ON Comment: Test Performed by Legal Department Manager Mediated Amplification Performed at [facility], [address] [place] [address] CLIA Number [id number] Source STD Cervix HP CONVERSION Comment: CLIA Number [id number] Specimen Anatomical Collection Method Collection Time Receive [...] se documented in this encounter Care Teams Firearms Inspector Relationship Specialty Start Date End Date Kinga Pickett APRN, HANDKERCHIEF CUTTER PCP - General 03/15/15 07/04/16 [address] [place] [address] documented as of this encounter
--- OUTSIDE RECORDS SUMMARY | 2022-05-09 19:28 | XMS_ITS | Encounter Summary ---
:1975 Author Organization [facility] Address [address] [place] [address] Care Team Providers Name Role Phone Kinga Pickett APRN, CNP Primary Care Provider [phone] Reason for Visit Reason Comments CONSULT Encounter Details Date Type Department Care Team Description 09/01/2015 Initial Consult Eileen White Chronic diarrhea (Primary Dx); Gastroenterology RUDY King CNP Hematochezia [address] [address] [place] [address] [place] [phone] [address] Social History Tobacco Use Types Packs/Day Years Used Date Smoking Tobacco: Never Assessed Sex Assigned at Date Recorded Female 05/09/2021 7:19 PM SUPERVISOR LITHARGE documented as of this encounter Last Filed Vital Signs Vital Sign Reading Time Taken Comments Blood Pressure 127/77 09/01/2015 1:01 PM SUPERVISOR LITHARGE Pulse 85 09/01/2015 1:01 PM SUPERVISOR LITHARGE Temperature - - Respiratory Rate 15 09/01/2015 1:01 PM SUPERVISOR LITHARGE Oxygen Saturation - - Inhaled Oxygen Concentration - - Weight 73.6 kg (162 lb 5 oz) 09/01/2015 1:01 PM SUPERVISOR LITHARGE Height - - Body Mass Index 26.09 06/12/2015 10:45 AM SUPERVISOR LITHARGE documented in this encounter Progress Notes Eileen Bernabe APRN, CNP - 09/01/2015 2:53 PM CST RVISOR LITHARGE Eileen Bernabe APRN, CNP - 09/01/2015 1:42 PM CST Progress Notes signed by Eileen Bernabe APRN, CNP at 09/01/15 7950 Author: Eileen Bernabe APRN, CNP Service: (none) Author Type: Nurse Practitioner Filed: 09/01/15 1672 Note Time: 09/01/15 1411 Status: Signed Sports Director: Eileen Bernabe APRN, CNP (Nurse Practitioner) NAME: IGGY DUARTE MR#: [id number] CSN: [id number] AUTHENTICATING CLINICIAN: MICHAEL Martini CONFIRM #: [id number] LOC: 533 CLINIC PROGRESS NOTE DATE OF [...] of your patient. TLB:MEDQ C: CONFIRM #: [id number] RVISOR LITHARGE documented in this encounter Plan of Treatment Upcoming Encounters Date Type Specialty Care Team Description 05/12/2022 Hospital Encounter Chemo Therapy/Infusion Services 09/15/2022 Telemedicine Gastroenterology Eusebio Haines MD [address] [place], [place] [address] documented as of this encounter Visit Diagnoses Diagnosis Chronic diarrhea - Primary Diarrhea Hematochezia Blood in stool documented in this encounter Care Teams Trumpet Player Relationship Specialty Start Date End Date Kinga Pickett APRN, GRAIN SCOOPER PCP - General 03/15/15 07/04/16 [address] [place], [place] [address] documented as of this encounter
--- OUTSIDE RECORDS SUMMARY | 2022-05-09 19:28 | XMS_ITS | Encounter Summary ---
:1975 Author Organization [employer] Address [address] [place] [address] Care Team Providers Name Role Phone Kinga Pickett APRN, CNP Primary Care Provider Encounter Details Date Type Department Care Team Description 09/22/2015 Hospital Encounter Specialty Center Ashkan Rizo Ch ronic diarrhea; 6500 Endoscopy Hematochezia 6[address] [facility] [address] [facility] [address] [phone] Social History Tobacco Use Types Packs/Day Years Used Date Smoking Tobacco: Never Assessed Sex Assigned at Date Recorded Female 05/09/2021 7:19 PM DIRECTOR FINANCIAL SYSTEMS documented as of this encounter Last Filed [...] 4 09/30/2014 11/23/2015 Triphasic mouth daily (every (ORTHO-NOVUM) 24 hours). Patient 0.5/0.75/1-35 MG-MCG takes continously [...] beforesedation medications were given for colonoscopy procedure. CTOR FINANCIAL SYSTEMS documented in this encounter Procedure Notes Ashkan Rizo MD - 09/22/2015 11:16 AM CDT Procedures signed by Ashkan Rizo MD at 09/22/15 1116 Author: Ashkan Rizo MD Service: (none) Author Type: Physician Filed: 09/22/15 0469 Note Time: 09/22/151302 Status: Signed Miner Operator: Ashkan Rizo MD (Physician) Patient Name: Idania [...] and oxygen saturations were monitored continuously. The [id number] was introduced through the anus and advanced [...] pathology results. Procedure Code(s): --- Professional --- 49927, Colonoscopy, flexible; with biopsy, single or multiple Diagnosis Code(s): --- Professional --- K51.20, Ulcerative (chronic) proctitis without complications D12.5, Benign neoplasm of sigmoid colon K52.9, Noninfective gastroenteritis and colitis, unspecified K92.1, Melena R10.9, Unspecified abdominal pain R19.7, Diarrhea, unspecified CPT copyright 2014 [employer]. All rights reserved. The codes documented in this report are preliminary and upon electrical and radio aircraft mechanic review may be revised to meet current [...] Services 09/15/2022 Telemedicine Gastroenterology Eusebio Haines MD [address] [place] [address] documented as of this encounter Procedures Procedure [...] - 09/22/2015 1:11 PM CD[place] [address] CLIA number [id number] Ashkan Rizo MD LAB_1 Performing Organization Address [...] ?Eileen Bernabe NP, Kinga Lowe. ? Nieves, Santhosh P Medicines: ? Midazolam 8 mg IV, Fentanyl 250 ? microgram s IV Complications: ? No immediate com plications. Estimated ? blood los s: Minimal. Procedure: ? After I obtain ed informed consent, ? the scope was passed under direct ? vision. T hroughout the procedure, the ? patient's blood pressure, pulse, and ? oxygen sa turations were monitored ? continuou sly. The [id number] was ? introduce d through the anus [...] Code(s): ?? --- Professional - -- ? 31225, Co lonoscopy, flexible; with ? biopsy, s marcos or multiple Diagnosis Code(s): ?? --- Professional - -- ? K51.20, U lcerative (chronic) ? proctitis without complications ? D12.5, Be nign neoplasm of sigmoid ? colon ? K52.9, No ninfective gastroenteritis ? and colit is, unspecified ? K92.1, Me rodney ? R10.9, Un specified abdominal pain ? R19.7, Di arrhea, unspecified CPT copyright 2014 [employer]. All rights reserved. The codes documented in this report are preliminary and upon electrical and radio aircraft mechanic review may be revised to meet current compliance requirements. Ashkan Rizo MD 09/22/2015 1:03 PM This document has been electronically si gned. Number of Addenda: 0 Note Initiated On: 09/22/2015 11:16 AM ? Endoscopy Report Eileen Bernabe BULLET ASSEMBLY PRESS OPERATOR, COFFEE SUPERVISOR PN GI PROCEDURE ORDERABLES Performing Organization Address City/State/ZIP Code Phon e Number PN PROVATION Pathology Report (09/22/2015 7:00 AM CDT) [facility] Method Time Signature Path: FINAL SURGICAL PATHOLOGY REPORT HP CONVERSION Pathology #: [id number] ?Date Obtained: 09/22/2015 ? Date Received: 09/22/2015 [...] DESCRIPTION: A-D) Microscopic examination performed. Performed at [facility], [address] [place] [address] Specimen Anatomical Collection Method Collection Time Receive [...] stool documented in this encounter Care Teams Cw Operator Relationship Specialty Start Date End Date Kinga Pickett, BULLET ASSEMBLY PRESS OPERATOR, COFFEE SUPERVISOR PCP - General 03/15/15 07/04/16 [address] [place] [address] documented as of this encounter
--- OUTSIDE RECORDS SUMMARY | 2022-05-09 19:28 | XMS_ITS | Encounter Summary ---
:1975 Author Organization [employer] Address [address] [place] [address] Care Team Providers Name Role Phone Kinga Pickett APRN, CNP Primary Care Provider [phone] Reason for Visit Reason Comments Medication Questions Encounter Details Date Type Department Care Team Description 08/23/2015 Telephone [facility] Sheeba Castillo, [facility] Questions Medicine SIERRA GRANT [address] [facility] [address] [place] [address] [place] [address] [phone] (Wo rk) Social History Tobacco Use Types Packs/Day Years Used Date Smoking Tobacco: Never Assessed Sex Assigned at Date Recorded Female 05/09/2021 7:19 PM DUMPLING MACHINE OPERATOR documented as of this encounter Nursing Notes Sheeba Castillo APRN, CNP - 08/23/2015 3:06 PM CST New Rx ordered. LING MACHINE OPERATOR Matilde Vera - 08/23/2015 2:52 PM CST Patient states that she verbally was told she could take 1-2 tabs of the Trazodone 50 mg at bedtime.The pharmacy script only shows 1 tablet nightly. Requesting that an amended Rx be sent to the pharmacy L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 Plan of Treatment Upcoming Encounters Date Type Specialty Care Team Description 05/12/2022 Hospital Encounter Chemo Therapy/Infusion Services 09/15/2022 Telemedicine Gastroenterology Eusebio Haines MD [address] [place], [place] [address] documented as of this encounter Visit Diagnoses Diagnosis JANNET (generalized anxiety disorder) (HRC) - Primary Generalized anxiety disorder documented in this encounter Care Teams Asset Administrator Relationship Specialty Start Date End Date Kinga Pickett APRN, SHOE POLISHER PCP - General 03/15/15 07/04/16 [address] [place] [address] documented as of this encounter
--- OUTSIDE RECORDS SUMMARY | 2022-05-09 19:28 | XMS_ITS | Encounter Summary ---
:1975 Author Organization [facility] Address [address] [place] [address] Care Team Providers Name Role Phone Kinga Pickett APRN, SIERRA Primary Care Provider [phone] Reason for Visit Reason Comments Refill Encounter Details Date Type Department Care Team Description 07/01/2015 Refill [facility] Kinga Morrow APRN, Refill [address] [address] 89[address] [facility] [phone] [facility] N [address] (Wo rk) Social History Tobacco Use Types Packs/Day Years Used Date Smoking Tobacco: Never Assessed Sex Assigned at Date Recorded Female 05/09/2021 7:19 PM SALES OPERATIONS CONSULTANT documented as of this encounter Nursing Notes Matilde Vera - 07/01/2015 9:20 AM CST Last fill date: 05-18-15 for #360 Last seen: 06-12-15 No upcoming appts S OPERATIONS CONSULTANT documented in this encounter Plan of Treatment Upcoming Encounters Date Type Specialty Care Team Description 05/12/2022 Hospital Encounter Chemo Therapy/Infusion Services 09/15/2022 Telemedicine Gastroenterology Eusebio Haines MD [address] [place] [address] documented as of this encounter Visit Diagnoses Not on filedocumented in this encounter Care Teams Service Manager Relationship Specialty Start Date End Date Kinga Pickett APRN, COMPOSING ROOM MACHINIST PCP - General 03/15/15 07/04/16 [address] [place], [place] [address] documented as of this encounter
--- OUTSIDE RECORDS SUMMARY | 2022-05-09 19:28 | XMS_ITS | Encounter Summary ---
:1975 Author Organization [facility] Address [address], [place] [address] Care Team Providers Name Role Phone Kinga Pickett APRN, CNP Primary Care Provider [phone] Encounter Details Date Type Department Care Team Description 09/14/2015 Notes/Orders [facility] 6500 Mee Rizo MD Gastroenterology 3850 [facility] [address] [place] [address] [place] [address] [phone] Social History Tobacco Use Types Packs/Day Years Used Date Smoking Tobacco: Never Assessed Sex Assigned at Date Recorded Female 05/09/2021 7:19 PM LOCAL COMPANY REFRIGERATED TRUCK DRIVER documented as of this encounter Plan of Treatment Upcoming Encounters Date Type Specialty Care Team Description 05/12/2022 Hospital Encounter Chemo Therapy/Infusion Services 09/15/2022 Telemedicine Gastroenterology Eusebio Haines MD [address] [place] [address] documented as of this encounter Visit Diagnoses Not on filedocumented in this encounter Care Teams Glass Blower Relationship Specialty Start Date End Date Kinga Pickett APRN, CNP PCP - General 03/15/15 07/04/16 [address] [place] [address] documented as of this encounter
--- OUTSIDE RECORDS SUMMARY | 2022-05-09 19:28 | XMS_ITS | Encounter Summary ---
:1975 Author Organization [employer] Address [address] [place] [address] Care Team Providers Name Role Phone Kinga Pickett APRN, CNP Primary Care Provider [phone] Reason for Visit Reason Comments Refill Encounter Details Date Type Department Care Team Description 12/15/2015 Telephone [facility] Sheeba Roca APRN, Refill [address] [place] [address] [phone] [place], [place] [address] (Wo rk) Social History Tobacco Use Types Packs/Day Years Used Date Smoking Tobacco: Never Assessed Sex Assigned at Date Recorded Female 05/09/2021 7:19 PM BOTTOM BUFFER documented as of this encounter Nursing Notes [...] can't use phentermine at this point, a nursery technician consult and continued exercise would be my recommendation. OM BUFFER Racheal Maharaj LPN - 12/15/2015 12:12 PM CDT Refill request received from [facility] for Phentermine 37.5 tablets. Per the note [...] 09/15/2022 Telemedicine Gastroenterology Eusebio Haines MD [address] [place], [place] [address] documented as of this encounter Visit Diagnoses Not on filedocumented in this encounter Care Teams Core Machine Operator Relationship Specialty Start Date End Date Kinga Pickett APRN, FOOD AND BEVERAGE CHECKER PCP - General 03/15/15 07/04/16 [address] [place], [place] [address] documented as of this encounter
--- OUTSIDE RECORDS SUMMARY | 2022-05-09 19:28 | XMS_ITS | Encounter Summary ---
:1975 Author Organization [employer] Address [address] [place] [address] Care Team Providers Name Role Phone Kinga Pickett APRN, CNP Primary Care Provider [phone] Reason for Visit Reason Comments Refill Encounter Details Date Type Department Care Team Description 08/03/2015 Refill [facility] Sheeba Roca APRN, Refill [address] [place] [address] [phone] [place], [place] [address] (Wo rk) Social History Tobacco Use Types Packs/Day Years Used Date Smoking Tobacco: Never Assessed Sex Assigned at Date Recorded Female 05/09/2021 7:19 PM ZMT OPERATOR documented as of this encounter Nursing Notes Matilde Vera - 08/04/2015 8:20 AM CST The written Rx for Lorazepam was faxed to the pharmacy Adri Torres LPN - 08/04/2015 7:55 AM CST Pt notified of Clay castillo below Sheeba Butterfield APRN, CNP - 08/03/2015 5:11 PM CST Call pt. Lorazepam refilled. Pt due for visit before additional refills. OPERATOR Matilde Vera - 08/03/2015 4:20 PM CST Last fill date: 07-02-15 for #15 Last seen: 06-12-15 No upcoming appts OPERATOR documented in this encounter Plan of Treatment Upcoming Encounters Date Type Specialty Care Team Description 05/12/2022 Hospital Encounter Chemo Therapy/Infusion Services 09/15/2022 Telemedicine Gastroenterology Eusebio Haines MD [address] [place], [place] [address] documented as of this encounter Visit Diagnoses Diagnosis Situational stress (HRC) - Primary Other psychological or physical stress, not elsewhere classified documented in this encounter Care Teams Platen Press Operator Apprentice Relationship Specialty Start Date End Date Kinga Pickett APRN, FOREST WORKER PCP - General 03/15/15 07/04/16 [address] [place], [place] [address] documented as of this encounter
--- OUTSIDE RECORDS SUMMARY | 2022-05-09 19:28 | XMS_ITS | Encounter Summary ---
:1975 Author Organization [employer] Address [address], [place] [address] Care Team Providers Name Role Phone Kinga Pickett APRN, CNP Primary Care Provider [phone] Reason for Visit Reason Comments MEDICATION CHECK Encounter Details Date Type Department Care Team Description 06/12/2015 Office Visit [facility] Sheeba Castillo, JANNET (generalized anxiety disorder) (Primary Dx); Medicine SIERRA GRANT Situational stress [address] [address] [address] [place] [address] [place] [phone] (Wo rk) Social History Tobacco Use Types Packs/Day Years Used Date Smoking Tobacco: Never Assessed Sex Assigned at Date Recorded Female 05/09/2021 7:19 PM RN NIGHT documented as of this encounter Last Filed Vital Signs Vital Sign Reading Time Taken Comments Blood Pressure 132/84 06/12/2015 10:45 AM RN NIGHT Pulse 96 06/12/2015 10:45 AM RN NIGHT Temperature - - Respiratory Rate - - Oxygen Saturation - - Inhaled Oxygen Concentration - - Weight 74.1 kg (163 lb 6.4 oz) 06/12/2015 10:45 AM RN NIGHT Height 168 cm (5' 6.13) 06/12/2015 10:45 AM RN NIGHT Body Mass Index 26.27 06/12/2015 10:45 AM RN NIGHT documented in this encounter Patient Instructions Patient InstructionsSheeba CastilloRUDY CNP - 06/12/2015 11:06 AM RN NIGHT Plan - Start Citalopram, take 1/2 tab x 4 days then 1 tab daily. - Start Trazodone 50mg at bedtime, 1-2 tabs. - Lorazepam, #15. - Counselor again - Recheck in 4-6 weeks. NIGHT documented in this encounter Progress Notes Sheeba Castillo APRN, CNP - 06/12/2015 11:20 AM CST Iggy Duarte [id number] 1975 SUBJECTIVE: IGGY DUARTE is a 40 [...] PAST MEDICAL AND SURGICAL HISTORY REVIEWED IN [facility] FAMILY AND SOCIAL HISTORY REVIEWED IN [facility] MEDICATIONS: Outpatient Prescriptions Prior to Visit Medication [...] (every 24 hours). ??? norethindrone-ethinyl estradiol (NECON ,) 1-35 mg-mcg per tablet Take 1 [...] of 6 ASSESSMENT/PLAN: JANNET (generalized anxiety disorder) ([facility]) - I explained that treating the underlying [...] sooner if symptoms worsen. Sheeba Castillo APRN, SIERRA [facility] NB: A voice recognition dictation system was used for this note. Please excuse any typographical errors. NIGHT documented in this encounter Plan of Treatment Upcoming Encounters Date Type Specialty Care Team Description 05/12/2022 Hospital Encounter Chemo Therapy/Infusion Services 09/15/2022 Telemedicine Gastroenterology Eusebio Haines MD [address] [place] [address] documented as of this encounter Visit Diagnoses Diagnosis JANNET (generalized anxiety disorder) (HRC) - Primary Generalized anxiety disorder Situational stress (HRC) Other psychological or physical stress, not elsewhere classified documented in this encounter Care Teams Knitter Helper Relationship Specialty Start Date End Date Kinga Pickett APRN, DISEASE CASE MANAGER PCP - General 03/15/15 07/04/16 [address] [place], [place] [address] documented as of this encounter
--- OUTSIDE RECORDS SUMMARY | 2022-05-09 19:28 | XMS_ITS | Encounter Summary ---
:1975 Author Organization [employer] Address [address] [place] [address] Care Team Providers Name Role Phone Kinga Pickett APRN, HEAD GRINDER Primary Care Provider [phone] Reason for Visit Reason Comments Annual Exam Encounter Details Date Type Department Care Team Description 07/13/2015 Office Visit [place] Contact Niesha Roque Myopia, bilateral Lens 39[address] [facility] (Primary Dx) [address] [place], [place] [address] [place] [address] [phone] Social History Tobacco Use Types Packs/Day Years Used Date Smoking Tobacco: Never Assessed Sex Assigned at Date Recorded Female 05/09/2021 7:19 PM GLASS TECHNOLOGIST documented as of this encounter Procedure Notes Lucero Roque - 07/13/2015 11:02 AM CST Final Contact Lens Rx Brand Base Curve Diameter Sphere Lens Addl. Specs Right proclear 8.2 14.2 -8.00 Daily Wear dist Left proclear 8.2 14.2 -8.00 Daily Wear dist Expiration Date: 07/13/2017 Replacement: Monthly Solutions: [employer] Wearing Schedule: Daily wear S TECHNOLOGIST documented in this encounter Plan of Treatment Upcoming Encounters Date Type Specialty Care Team Description 05/12/2022 Hospital Encounter Chemo Therapy/Infusion Services 09/15/2022 Telemedicine Gastroenterology Eusebio Haines MD [address] [place], [place] [phone] documented as of this encounter Visit Diagnoses Diagnosis Myopia, bilateral - Primary Myopia documented in this encounter Care Teams Cathode Washer Relationship Specialty Start Date End Date Kinga Pickett, FLOOR ASSEMBLER, HEAD GRINDER PCP - General 03/15/15 07/04/16 [address] [place], [place] [phone] documented as of this encounter
--- OUTSIDE RECORDS SUMMARY | 2022-05-09 19:28 | XMS_ITS | Encounter Summary ---
:1975 Author Organization [employer] Address [address] [place] [address] Care Team Providers Name Role Phone Kinga Pickett APRN, CNP Primary Care Provider [phone] Reason for Visit Reason Comments Follow-up Encounter Details Date Type Department Care Team Description 10/04/2015 Office Visit Eileen White, Ryland ul cerative Gastroenterology SIERRA GRANT colitis with rectal [address] guerrero (HRC) [place] [address] [place], [place] (Primary Dx) [phone] (Wo rk) Social History Tobacco Use Types Packs/Day Years Used Date Smoking Tobacco: Never Assessed Sex Assigned at Date Recorded Female 05/09/2021 7:19 PM BINGO CHECKER documented as of this encounter Last Filed [...] issues addressed.If not please call us at [phone] option 2 or My Chart message me. Here is our plan for today: 1. Prednisone burst and taper to hopefully quickly get your symptoms into remission. Prednisone 10 mg #175.Take with food. 48hnh60d, 30 mgx14d, 20 mg x14d, 15 mg [...] a look at [email or web address], as well as [email or web address] for good information. If your symptoms get [...] Filed: 10/04/151655 Note Time: 10/04/151436 Status: Signed Tray Line Supervisor: Eileen Bernabe APRN, CNP (Nurse Practitioner) NAME: IGGY DUARTE MR#: [id number] CSN: [id number] AUTHENTICATING CLINICIAN: MICHAEL Martini CONFIRM #: [id number] LOC: 533 CLINIC PROGRESS NOTE DATE OF [...] time: 30 minutes. Counseling time: 20 minutes. TLB:MEDQ C: CONFIRM #: [id number] documented in this encounter Plan of Treatment Upcoming Encounters Date Type Specialty Care Team Description 05/12/2022 Hospital Encounter Chemo Therapy/Infusion Services 09/15/2022 Telemedicine Gastroenterology Eusebio Haines MD [address] [place], [place] [id number] documented as of this encounter Visit Diagnoses Diagnosis Other ulcerative colitis with rectal ble eding (HRC) - Primary documented in this encounter Care Teams Paving Block Cutter Relationship Specialty Start Date End Date Kinga Pickett APRN, COBBLER UPPER PCP - General 03/15/15 07/04/16 [address] [place], [place] [address] documented as of this encounter
--- OUTSIDE RECORDS SUMMARY | 2022-05-09 19:28 | XMS_ITS | Encounter Summary ---
:1975 Author Organization [employer] Address [address] [place] [address] Care Team Providers Name Role Phone Kinga Pickett APRN, CARBONATION EQUIPMENT OPERATOR Primary Care Provider [phone] Reason for Visit Reason Comments LAB RESULTS Encounter Details Date Type Department Care Team Description 09/08/2015 Telephone [facility] 6[address] Eileen Bernabe APRN, LAB RESULTS Gastroenterology CARBONATION EQUIPMENT OPERATOR [address] [address] [place] [address] [place], [place] [address] (Wo rk) Social History Tobacco Use Types Packs/Day Years Used Date Smoking Tobacco: Never Assessed Sex Assigned at Date Recorded Female 05/09/2021 7:19 PM BARTENDER HELPER documented as of this encounter Nursing Notes Dayana Jauregui RN - 09/08/2015 9:11 AM CDT Call from lab. Stool for C-Diff cancelled, stool brought in was formed. FYI to TB RETAIL MANAGEMENT TRAINEE. documented in this encounter Plan of Treatment Upcoming Encounters Date Type Specialty Care Team Description 05/12/2022 Hospital Encounter Chemo Therapy/Infusion Services 09/15/2022 Telemedicine Gastroenterology Eusebio Haines MD [address] [place] [address] documented as of this encounter Visit Diagnoses Not on filedocumented in this encounter Care Teams School Inspector Relationship Specialty Start Date End Date Kinga Pickett APRN, CARBONATION EQUIPMENT OPERATOR PCP - General 03/15/15 07/04/16 [address] [facility] [place] [address] documented as of this encounter
--- OUTSIDE RECORDS SUMMARY | 2022-05-09 19:28 | XMS_ITS | Encounter Summary ---
:1975 Author Organization [employer] Address [address] [place] [address] Care Team Providers Name Role Phone Hoang Peacock APRN, EYEGLASS FRAMES INSPECTOR Primary Care Provider [phone] Reason for Visit Reason Comments Refill Encounter Details Date Type Department Care Team Description 06/30/2015 Refill [facility] [address] Sasha Peacock APRN, Refill Medicine [facility] [address] [place] [address] [place], [place] [address] (Wo rk) Social History Tobacco Use Types Packs/Day Years Used Date Smoking Tobacco: Never Assessed Sex Assigned at Date Recorded Female 05/09/2021 7:19 PM TABBER documented as of this encounter Nursing Notes User, Refillwiash - 07/30/2015 11:31 AM CST LORazepam (ATIVAN) [...] - NEXT SCHEDULED VISIT: None Powered by [employer], Reference: [id number], 06/30/2015 11:56:26 AM TABBER, Pool: [id number] FM REFILL ([id number]) ER documented in this encounter Plan of Treatment Upcoming Encounters Date Type Specialty Care Team Description 05/12/2022 Hospital Encounter Chemo Therapy/Infusion Services 09/15/2022 Telemedicine Gastroenterology Eusebio Haines MD [address] [place] [address] documented as of this encounter Visit Diagnoses Diagnosis Situational stress (HRC) - Primary Other psychological or physical stress, not elsewhere classified documented in this encounter Care Teams Linen Room Houseperson Relationship Specialty Start Date End Date Hoang Peacock APRN, EYEGLASS FRAMES INSPECTOR PCP - General 03/15/15 07/04/16 [address] [place], [place] [id number] documented as of this encounter
--- OUTSIDE RECORDS SUMMARY | 2022-05-09 19:28 | XMS_ITS | Encounter Summary ---
:1975 Author Organization [employer] Address [address] [place] [address] Care Team Providers Name Role Phone Kinga Pickett APRN, CNP Primary Care Provider [phone] Reason for Visit Reason Comments Refill Encounter Details Date Type Department Care Team Description 06/11/2015 Refill [facility] Kinga Morrow APRN, Refill [address] [place] [address] 7468 [facility] [phone] [facility] N [address] (Wo rk) Social History Tobacco Use Types Packs/Day Years Used Date Smoking Tobacco: Never Assessed Sex Assigned at Date Recorded Female 05/09/2021 7:19 PM RAILROAD COMMISSIONER documented as of this encounter Nursing Notes Sheeba Castillo APRN, CNP - 06/11/2015 2:05 PM CST I am going to wait until patient's appt tomorrow to fill if indicated. ROAD COMMISSIONER Matilde Vera - 06/11/2015 1:17 PM CST Last filled on 04-28-15 for #[address] COMMISSIONER Matilde Vera - 06/11/2015 1:16 PM CST Has an appt tomorrow morning 06-12-15 RO[address] COMMISSIONER documented in this encounter Plan of Treatment Upcoming Encounters Date Type Specialty Care Team Description 05/12/2022 Hospital Encounter Chemo Therapy/Infusion Services 09/15/2022 Telemedicine Gastroenterology Eusebio Haines MD [address] [place] [address] documented as of this encounter Visit Diagnoses Diagnosis JANNET (generalized anxiety disorder) (HRC) - Primary Generalized anxiety disorder Situational stress (HRC) Other psychological or physical stress, not elsewhere classified documented in this encounter Care Teams Linoleum Layer Relationship Specialty Start Date End Date Kinga Pickett APRN, ROVING SIZER PCP - General 03/15/15 07/04/16 [address] [place] [address] documented as of this encounter
--- OUTSIDE RECORDS SUMMARY | 2022-05-09 19:28 | XMS_ITS | Encounter Summary ---
:1975 [address] [facility] Address [address] [place] [address] Care Team Providers Name Role Phone Hoang Peacock APRN, CNP Primary Care Provider [phone] Reason for Visit Reason Comments Refill Encounter Details Date Type Department Care Team Description 11/23/2015 Refill [facility] Hoang Morrow APRN, Refill [address] [place] [address] 1857 [facility] [phone] [facility] N [address] (Wo rk) Social History Tobacco Use Types Packs/Day Years Used Date Smoking Tobacco: Never Assessed Sex Assigned at Date Recorded Female 05/09/2021 7:19 PM RADIO INTERFERENCE INVESTIGATOR documented as of this encounter Nursing Notes [...] the protocol. - LAST QUALIFYING VISIT WITH HOANG PEACOCK A: 09/30/2014 (A more recent visit in Family Medicine was found) - NEXT SCHEDULED VISIT: None - SBP: 136.0mm Hg on 11/18/2015 - DBP: 72.0mm Hg on 11/18/2015 ADDITIONAL SCHEDULING ACTIONS TAKEN: - K for hydrochlorothiazide (ORETIC) 25 mg tablet (Sent to [facility]) - NA for hydrochlorothiazide (ORETIC) 25 mg tablet (Sent to [facility]) Powered by [employer], Reference: [id number], 11/23/2015 10:36:05 AM CDT, Pool: DEANDRA FP REFILL ([id number]) Talita Mckeon RN - 11/23/2015 6:36 PM CDT Further assistance needed to complete refill request Reason: RN Reviewed--Need signed order in DOCUSYS for pended medication. Last visit with Sheeba Castillo APRN, JACK MACHINE OPERATOR on 11/18/15. Next Steps: Review pended order [...] 09/15/2022 Telemedicine Gastroenterology Eusebio Haines MD [address] [place] [address] documented as of this encounter Visit Diagnoses Not on filedocumented in this encounter Care Teams Paraeducator Relationship Specialty Start Date End Date Hoang Peacock APRN, JACK MACHINE OPERATOR PCP - General 03/15/15 07/04/16 [address] [place], [place] [id number] documented as of this encounter
--- OUTSIDE RECORDS SUMMARY | 2022-05-09 19:28 | XMS_ITS | Encounter Summary ---
:1975 Author Organization [facility] Address [address], [place] [address] Care Team Providers Name Role Phone Kinga Pickett APRN, CNP Primary Care Provider [phone] Encounter Details Date Type Department Care Team Description 04/02/2015 [facility] [address] [place] [address] Social History Tobacco Use Types Packs/Day Years Used Date Smoking Tobacco: Never Assessed Sex Assigned at Date Recorded Female 05/09/2021 7:19 PM BROODMARE FOREMAN documented as of this encounter Medications at [...] 09/30/2014 11/23/2015 Triphasic mouth daily (every 24 (ORTHO-NOVUM7/7/7) hours). Patient takes 0.5/0.75/1-35 MG-MCG continously tablet [...] advise if any changes are needed. Thanks. DMARE FOREMAN Miscellaneous - 04/02/2015 11:59 PM CDTNotes Recorded [...] advise if any changes are needed. Thanks. DMARE FOREMAN Miscellaneous - 04/02/2015 11:59 PM CDTNotes Recorded [...] advise if any changes are needed. Thanks. DMARE FOREMAN Miscellaneous - 04/02/2015 11:59 PM CDTNotes Recorded [...] advise if any changes are needed. Thanks. DMARE FOREMAN Miscellaneous - 04/02/2015 11:59 PM CDTNotes Recorded [...] advise if any changes are needed. Thanks. DMARE FOREMAN Miscellnehemiah - 04/02/2015 11:59 PM CDTNotes Recorded by [...] advise if any changes are needed. Thanks. DMARE FOREMAN Misbhavna - 04/02/2015 11:59 PM CDTNotes Recorded by [...] advise if any changes are needed. Thanks. DMARE FOREMAN Misbhavna - 04/02/2015 11:59 PM CDTNotes Recorded by [...] advise if any changes are needed. Thanks. DMARE FOREMAN documented in this encounter Plan of Treatment Upcoming Encounters Date Type Specialty Care Team Description 05/12/2022 Hospital Encounter Chemo Therapy/Infusion Services 09/15/2022 Telemedicine Gastroenterology Eusebio Haines MD [address] [place], [place] [address] documented as of this encounter Procedures Procedure [...] n the results section. SURGICAL PATHDONAL Routine 04/02/2015 12:48 Resu lts for this [...] - 04/02/2015 2:19 PM CDT Performed at [facility], [place] [place] [address] CLIA number [id number] Transcriptions 04/02/2015 11:59 PM CDTNotes Recorded by [...] CONVERSION (ABNORMAL) Differential (04/02/2015 1:39 PM CDT) [facility] Method Time Signature Absolute 10.2 (H) 1.8 [...] - 04/02/2015 3:23 PM CDT Performed at [facility], [address] [place] [address] CLIA number [id number] Transcriptions 04/02/2015 11:59 PM CDTNotes Recorded by Keyla Camarillo RN on 04/21/2015 at 12:28 PMSpoke with patient and reviewed below results and recommendations. She states she has cut down smokin g during the week, etc. She will see Dr. Patino as scheduled next week. Note complete.------Notes Recorded by Keyla Camarillo RN on 04/14/2015 at 10:19 [facility] for patient to call back to [...] - 04/02/2015 2:19 PM CDT Performed at [facility], [address] [place] [address] CLIA number [id number] Transcriptions 04/02/2015 11:59 PM CDTNotes Recorded by [...] - 04/02/2015 2:19 PM CDT Performed at [facility], [facility] [place] [address] CLIA number [id number] Transcriptions 04/02/2015 11:59 PM CDTNotes Recorded by Keyla Camarillo RN on 04/21/2015 at 12:28 PMSpoke with patient and reviewed below results and recommendations. She states she has cut down smokin g during the week, etc. She will see Dr. Patino as scheduled next week. Note complete.------Notes Recorded by Keyla Camarillo RN on 04/14/2015 at 10:19 [facility] for patient to call back to discuss labs and recommendations.------ Notes Recorded by Keyla Camarillo RN o n 04/07/2015 at 4:21 [facility] for patient to call back to [...] Code Phon e Number HP CONVERSION ELP, [place], Serum (04/02/2015 1:39 PM CDT) Analysis Performed At [facility] logist Time Signature Total Protein, 7.4 g/dL HP CONVERSION Serum ELP Albumin, Serum 4.1 3.4 - 5.0 HP CONVERSION ELP g/dL Wnstg-4-Oafiqo 0.3 0.1 - 0.4 HP CONVERSION in g/dL Fxgnp-6-Tsxhfg 0.8 0.3 - 1.1 HP CONVERSION in [...] - 04/06/2015 12:57 [place] [address] CLIA number [id number] Transcriptions 04/02/2015 11:59 PM CDTNotes Recorded by Keyla Camarillo RN on 04/21/2015 at 12:28 PMSpoke with patient and reviewed below results and recommendations. She states she has cut down smokin g during the week, etc. She will see Dr. Patnio as scheduled next week. Note complete.------Notes Recorded [...] HP CONVERSION ESR (04/02/2015 1:39 PM CDT) [facility] Method Time Signature Sedimentation Rate 19 0 - 20 HP CONVERSI ON mm/hr Specimen Anatomical Collection Method Collection Time Receive d Time (Source) Location / / Volume Laterality 04/02/2015 1:39 PM 5 1:44 CDT PM CDT Narrative HP CONVERSION - 04/02/2015 2:25 PM CDT Performed at [facility], [facility] [place] [address] CLIA number [id number] Transcriptions 04/02/2015 11:59 PM CDTNotes Recorded by Keyla Camairllo RN on 04/21/2015 at 12:28 PMSpoke with patient and reviewed below results and recommendations. She states she has cut down smokin g during the week, etc. She will see Dr. Patino as scheduled next week. Note complete.------Notes Recorded by Keyla Camarillo RN on 04/14/2015 at 10:19 [facility] for patient to call back to discuss labs and recommendations.------ Notes Recorded by Keyla Camarillo RN o n 04/07/2015 at 4:21 PML for patient to call back to discuss.------Notes [...] Louisa Patino MD LAB_1 Performing Organization Address [facility] Phon e Number HP CONVERSION PERIPHERAL BLOOD SMEAR (04/02/2015 1:39 PM CDT) athologist Signature Peripheral Done HP CONVERSION Blood Smear Specimen Anatomical Collection Method Collection Time Receive d Time (Source) Location / / Volume Laterality 04/02/2015 1:39 PM 5 1:44 CDT PM CDT Narrative HP CONVERSION - 04/04/2015 6:33 AM CDT Performed at [facility] [place] [address] [place] [address] CLIA number [id number] Transcriptions 04/02/2015 11:59 PM CDTNotes Recorded by [...] City/State/ZIP Code Phon e Number HP CONVERSION ONCOLOGY PROFILE (04/02/2015 1:39 PM CDT) [facility] Method Time Signature Aspartate 33 0 - [...] - 04/02/2015 2:19 PM CDT Performed at [facility], [facility] [place] [address] CLIA number [id number] Transcriptions 04/02/2015 11:59 PM CDTNotes Recorded by [...] Blood Count W/Diff (04/02/2015 1:39 PM CDT) [facility] Method Time Signature White Blood Cell 16.1 [...] - 04/02/2015 1:48 PM CDT Performed at [facility], [address] [place] [address] CLIA number [id number] Transcriptions 04/02/2015 11:59 PM CDTNotes Recorded by [...] ?FINAL PERIPHERAL BLOOD SMEAR MORPHOLOGY Pathology #: [id number] ?Date Obtained: 04/02/2015 ? Date Received: 04/04/2015 [...] morphologica lly unremarkable. ?CPS ??CPS CPT Codes: ?97848 x 1 ? End of Report Performed at [facility], [address] [place] [address] Transcriptions 04/02/2015 11:59 PM CDTNotes Recorded by Keyla Camarillo RN on 04/21/2015 at 12:28 PMSpoke with patient and reviewed below results and recommendations. She states she has cut down smokin g during the week, etc. She will see Dr. Patino as scheduled next week. Note complete.------Notes Recorded by Keyla Camarillo RN on 04/14/2015 at 10:19 [facility] for patient to call back to discuss labs and recommendations.------ Notes Recorded by Keyla Camarillo RN o n 04/07/2015 at 4:21 [facility] for patient to call back to [...] unspecified documented in this encounter Care Teams Stake Driver Relationship Specialty Start Date End Date Kinga Pickett, ESCROW SECRETARY, ENTRY ENGINEER PCP - General 03/15/15 07/04/16 [address] [place], [place] [address] documented as of this encounter
--- OUTSIDE RECORDS SUMMARY | 2022-05-09 19:28 | XMS_ITS | Encounter Summary ---
:1975 Author Organization [facility] Address [address] [place] [address] Care Team Providers Name Role Phone Kinga Pickett APRN, CNP Primary Care Provider [phone] Reason for Visit Reason Comments BLOOD PRESSURE CHECK Encounter Details Date Type Department Care Team Description 12/22/2015 Nursing Visit [facility] Nurse, 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
--- OUTSIDE RECORDS SUMMARY | 2022-05-09 19:28 | XMS_ITS | Encounter Summary ---
:1975 Author Organization [facility] Address [address], [place] [address] Care Team Providers Name Role Phone Kinga Pickett APRN, CNP Primary Care Provider [phone] Reason for Visit Reason Comments Refill Encounter Details Date Type Department Care Team Description 04/27/2015 Refill [facility] Medicbirgit e Ene Sue PA-C Refill [address] [place] [address] [place], [place] [address] (Wo rk) Social History Tobacco Use Types Packs/Day Years Used Date Smoking Tobacco: Never Assessed Sex Assigned at Date Recorded Female 05/09/2021 7:19 PM ENROLLMENT NURSE documented as of this encounter Nursing Notes Jordana Benito - 04/28/2015 12:50 PM CST sent card Мария Flores MA - 04/28/2015 11:02 AM CST rx faxed to pharmacy - routed to frontline to schedule LLMENT NURSE Kinga Pickett APRN, CNP - 04/27/2015 2:58 PM CST I saw for acute issues will refill this one time then have her establish care to discuss anxiety andon-going med. LLMENT NURSE Justin Dunaway PA-C - 04/27/2015 2:33 PM CST Looks like she has established care with Kinga Pickett. Please route to her. LLMENT NURSE Ifrah Khanna - 04/27/2015 11:23 AM CST PRINT, SIGN AND BRING TO [facility] LORAZEPAM 0.5MG TABS QTY 30 LAST FILLED 03/04/2015 LAST OFFICE VISIT 01/18/2015 LLMENT NURSE documented in this encounter Plan of Treatment Upcoming Encounters Date Type Specialty Care Team Description 05/12/2022 Hospital Encounter Chemo Therapy/Infusion Services 09/15/2022 Telemedicine Gastroenterology Eusebio Haines MD [address] [place] [address] documented as of this encounter Visit Diagnoses Diagnosis JANNET (generalized anxiety disorder) (HRC) - Primary Generalized anxiety disorder Situational stress (HRC) Other psychological or physical stress, not elsewhere classified documented in this encounter Care Teams Lamp Shades Supervisor Relationship Specialty Start Date End Date Kinga Pickett APRN, CNP PCP - General 03/15/15 07/04/16 [address] [place], [place] [address] documented as of this encounter
--- OUTSIDE RECORDS SUMMARY | 2022-05-09 19:28 | XMS_ITS | Encounter Summary ---
:1975 Author Organization [employer] Address [address] [place] [address] Care Team Providers Name Role Phone Hoang Peacock APRN, SIERRA Primary Care Provider [phone] Reason for Visit Reason Comments Refill Encounter Details Date Type Department Care Team Description 06/30/2015 Refill [facility] Hoang Morrow APRN, Refill [address] [place] [address] [address] [facility] [phone] [facility], [address] [address] (Wo rk) Social History Tobacco Use Types Packs/Day Years Used Date Smoking Tobacco: Never Assessed Sex Assigned at Date Recorded Female 05/09/2021 7:19 PM CLASSICS TEACHER documented as of this encounter Nursing Notes User, Bryan - 07/01/2015 7:53 AM CST dicyclomine (BENTYL) [...] - NEXT SCHEDULED VISIT: None Powered by [employer] Reference: [id number], 06/30/2015 8:31:58 AM CLASSICS TEACHER, Americ[place]: DEANDRA FP REFILL ([id number]) SICS TEACHER documented in this encounter Plan of Treatment Upcoming Encounters Date Type Specialty Care Team Description 05/12/2022 Hospital Encounter Chemo Therapy/Infusion Services 09/15/2022 Telemedicine Gastroenterology Eusebio Haines MD [address] [place] [address] documented as of this encounter Visit Diagnoses Not on filedocumented in this encounter Care Teams Shooter'S Helper Relationship Specialty Start Date End Date Hoang Peacock, MAKER UP FOLDING, SUPERVISOR SAFETY DEPOSIT PCP - General 03/15/15 07/04/16 [address] [place] [address] documented as of this encounter
--- OUTSIDE RECORDS SUMMARY | 2022-05-09 19:28 | XMS_ITS | Encounter Summary ---
:1975 Author Organization [facility] Address [address] [place] [address] Care Team Providers Name Role Phone Kinga Pickett APRN, SIERRA Primary Care Provider [phone] Encounter Details Date Type Department Care Team Description 09/08/2015 Lab Visit [facility] ry Chronic diarrhea; [address] [place], [place] [address] Social History Tobacco Use Types Packs/Day Years Used Date Smoking Tobacco: Never Assessed Sex Assigned at Date Recorded Female 05/09/2021 7:19 PM CRAY FISHING HAND documented as of this encounter Plan of Treatment Upcoming Encounters Date Type Specialty Care Team Description 05/12/2022 Hospital Encounter Chemo Therapy/Infusion Services 09/15/2022 Telemedicine Gastroenterology Eusebio Haines MD [address] [place], [place] [address] documented as of this encounter Procedures Procedure Name Priority Date/Time Associated Diagnosis Comme nts STOOL CULTURE Routine 09/08/2015 6:00 AM Chronic diarr hea Results for this CDT Hematochezia procedure are i n the results section . documented in this encounter Results Stool Culture (09/08/2015 6:00 AM CDT) Component Value Ref Test Analysis Performed At [facility] Method Time Signature Source Stool HP CONVERSION [...] - 09/11/2015 2:59 PM CDT Performed at [facility], [address] [place] [address], CLIA Number [id number] Eileen Bernabe APRN, CNP LAB_1 Performing Organization Address City/State/ZIP Code Phon e Number HP CONVERSION documented in this encounter Visit Diagnoses Diagnosis Chronic diarrhea Diarrhea Hematochezia Blood in stool documented in this encounter Care Teams Registered Travel Nurse Relationship Specialty Start Date End Date Kinga Pickett APRN, SIERRA PCP - General 03/15/15 07/04/16 [address] [place] [address] documented as of this encounter
--- OUTSIDE RECORDS SUMMARY | 2022-05-09 19:28 | XMS_ITS | Encounter Summary ---
:1975 Author Organization [employer] Address [address] [place] [address] Care Team Providers Name Role Phone Hoang Peacock APRN, CNP Primary Care Provider Reason for Visit Reason Comments Refill Appt. Needed Encounter Details Date Type Department Care Team Description 05/26/2015 Refill [facility] [address] Hoang Peacock, Re fill; Appt. Needed Family Medicine SIER[place] [address] [place], [place] [address] [address] [place], [place] [phone] (Wo rk) Social History Tobacco Use Types Packs/Day Years Used Date Smoking Tobacco: Never Assessed Sex Assigned at Date Recorded Female 05/09/2021 7:19 PM LABORER PETROLEUM REFINERY documented as of this encounter Nursing Notes Key Avila - 06/01/2015 9:08 AM CST Appointment Reminder Card Sent. RER PETROLEUM REFINERY User, Bryan - 06/01/2015 9:08 AM CST [...] - NEXT SCHEDULED VISIT: None Powered by [employer], Reference: [id number], 05/26/2015 9:15:35 AM LABORER PETROLEUM REFINERY, Pool: [id number] REFILL ([id number]) [place] - 05/31/2015 10:16 AM CST [...] Finalization of divorce. Patient is working at [employer] and has not seen an MD here yet. Please advise, thank you. RER PETROLEUM REFINERY documented in this encounter Plan of Treatment Upcoming Encounters Date Type Specialty Care Team Description 05/12/2022 Hospital Encounter Chemo Therapy/Infusion Services 09/15/2022 Telemedicine Gastroenterology Eusebio Haines MD [address] [place] [address] documented as of this encounter Visit Diagnoses Diagnosis JANNET (generalized anxiety disorder) (HRC) - Primary Generalized anxiety disorder Situational stress (HRC) Other psychological or physical stress, not elsewhere classified documented in this encounter Care Teams Occupational Therapy Program Director Relationship Specialty Start Date End Date Hoang Peacock, SHIP/REC/DOC CONTROL, SECURITY SOFTWARE ENGINEER PCP - General 03/15/15 07/04/16 [address] [place] [address] documented as of this encounter
--- OUTSIDE RECORDS SUMMARY | 2022-05-09 19:28 | XMS_ITS | Encounter Summary ---
:1975 Author Organization [facility] Address [address] [place] [address] Care Team Providers Name Role Phone Kinga Pickett APRN, SIERRA Primary Care Provider [phone] Reason for Visit Reason Comments Refill Encounter Details Date Type Department Care Team Description 08/23/2015 Refill [facility] Aj Roca APRN, Refill [address] [facility] [place] [address] [phone] [place], [place] [address] (Wo rk) Social History Tobacco Use Types Packs/Day Years Used Date Smoking Tobacco: Never Assessed Sex Assigned at Date Recorded Female 05/09/2021 7:19 PM CHAUFFEUR documented as of this encounter Nursing Notes Talita Shah RN - 08/23/2015 3:26 PM CST Requested Prescriptions No prescriptions requested or ordered in this encounter Previously pended medication(s) have been addressed or refilled in another encounter or office visit. No further action is needed. FFEUR User, Bryan - 08/23/2015 3:26 PM CST [...] DBP: 84.0mm Hg on 06/12/2015 Powered by [employer], Reference: [id number], 08/23/2015 11:02:09 AM Americo [place]: DEANDRA FP REFILL ([id number]) FFEUR documented in this encounter Plan of Treatment Upcoming Encounters Date Type Specialty Care Team Description 05/12/2022 Hospital Encounter Chemo Therapy/Infusion Services 09/15/2022 Telemedicine Gastroenterology Eusebio Haines MD [address] [place] [address] documented as of this encounter Visit Diagnoses Not on filedocumented in this encounter Care Teams Lap Polisher Relationship Specialty Start Date End Date Kinga Pickett, QUARTZ MINER BLASTING, PROCESS AUTOMATION ENGINEER PCP - General 03/15/15 07/04/16 [address] [place] [address] documented as of this encounter
--- OUTSIDE RECORDS SUMMARY | 2022-05-09 19:29 | XMS_ITS | Encounter Summary ---
:1975 Author [facility] Address [address] [place] [address] Care Team Providers Name Role Phone Munira Combs PA-C Primary Care Provider Encounter Details Date Type Department Care Team Description 02/19/2012 Lab Visit [facility] Selin denis; Laboratory Irritable bowel syndrome [address] [facility] [place] [address] Social History Tobacco Use Types Packs/Day Years Used Date Smoking Tobacco: Never Assessed Sex Assigned at Date Recorded Female 05/09/2021 7:19 PM ASP NET SOFTWARE DEVELOPER documented as of this encounter Plan of Treatment Upcoming Encounters Date Type Specialty Care Team Description 05/12/2022 Hospital Encounter Chemo Therapy/Infusion Services 09/15/2022 Telemedicine Gastroenterology Eusebio Haines MD [address] [place] [address] documented as of this encounter Procedures Procedure Name Priority Date/Time Associated Comments Diagnosis TISSUE TRANSGLUTAMINASE Routine 02/19/2012 3:10 Diarrhea Results for this AB IGA PM CDT Irritable bowel procedure ar e in syndrome the results section. documented in this encounter Results TISSUE TRANSGLUTAMINASE AB IGA (02/19/2012 3:10 PM CDT) [facility] Method Time Signature Tissue 4 0 [...] - 02/20/2012 10:53 PM CDT Performed at [facility] [address] [place] [address] Eusebio Mcmanus MD LAB_1 Performing Organization Address City/State/ZIP Code Phon e Number HP CONVERSION documented in this encounter Visit Diagnoses Diagnosis Diarrhea Irritable bowel syndrome documented in this encounter Care Teams Precast Worker Relationship Specialty Start Date End Date Munira Combs PA-C PCP - General 09/25/10 03/14/15 [address] [place] [address] documented as of this encounter
--- OUTSIDE RECORDS SUMMARY | 2022-05-09 19:29 | XMS_ITS | Encounter Summary ---
:1975 Author Organization [employer] Address [address] [place] [address] Care Team Providers Name Role Phone Munira Combs PA-C Primary Care Provider Encounter Details Date Type Department Care Team Description 08/25/2013 Lab Visit [facility] Screening for diabetes ryder esparza; [address] [facility] Screening cholesterol level; [place] [address] Annual physical exam; [phone] Screening for o ther and unspecified deficiency anemia; HTN (hypertensi on) Social History Tobacco Use Types Packs/Day Years Used Date Smoking Tobacco: Never Assessed Sex Assigned at Date Recorded Female 05/09/2021 7:19 PM ALLIANCES CONSULTANT documented as of this encounter Plan of Treatment Upcoming Encounters Date Type Specialty Care Team Description 05/12/2022 Hospital Encounter Chemo Therapy/Infusion Services 09/15/2022 Telemedicine [place] [address] [place] [id number] documented as of this encounter Procedures Procedure Name Priority Date/Time Associated Diagnosis Comme nts GLUCOSE Routine 08/25/2013 2:11 PM Screening for Results for this ALLIANCES CONSULTANT diabetes mellitus procedure are in the results section. LIPID PANEL AND Routine 08/25/2013 2:11 PM Screening Result s for this DIRECT LDL(IF ALLIANCES CONSULTANT cholesterol level procedure are in NEEDED) the results section. VITAMIN D Routine 08/25/2013 2:11 PM Annual physical exam R esults for this 25-HYDROXY, TOTAL ALLIANCES CONSULTANT procedure are in the results section. CREATININE / GFR Routine 08/25/2013 2:11 PM HTN (hypertension) Results for this ALLIANCES CONSULTANT procedure are i n the results section. HEMOGLOBIN, BLOOD Routine 08/25/2013 2:11 PM Screening for oth er Results for this ALLIANCES CONSULTANT and unspecified procedure ar e in deficiency anemia the result s section. ELECTROLYTE PANEL Routine 08/25/2013 2:11 PM HTN (hypertension ) Results for this ALLIANCES CONSULTANT procedure are i n the results section. documented in this encounter Results Electrolyte Panel (08/25/2013 2:11 PM ALLIANCES CONSULTANT) athologist Signature Sodium 140 137 - 147 HP CONVERSION Potassium 3.9 3.5 - 5.2 HP CONVERSION Chloride 109 98 - 110 HP CONVERSION Bicarbonate 25 23 - 33 HP CONVERSION mmol/L Specimen Anatomical Collection Method Collection Time Receive d Time (Source) Location / / Volume Laterality 08/25/2013 2:11 PM 4 2:11 ALLIANCES CONSULTANT PM ALLIANCES CONSULTANT Narrative HP CONVERSION - 08/25/2013 3:41 PM ALLIANCES CONSULTANT Performed at [facility], [address] [place] [address] Munira Combs PA-C LAB_1 Performing Organization Address City/[facility] Phon e Number HP CONVERSION Creatinine / GFR (08/25/2013 2:11 PM ALLIANCES CONSULTANT) athologist Signature Creatinine 0.7 0.4 - 1.3 [...] Volume Laterality 08/25/2013 2:11 PM 4 2:11 ALLIANCES CONSULTANT PM ALLIANCES CONSULTANT Narrative HP CONVERSION - 08/25/2013 3:41 PM ALLIANCES CONSULTANT Performed at [facility], [address] [place] [address] Munira Combs PA-C LAB_1 Performing Organization Address [facility] Phon e Number HP CONVERSION Hemoglobin, Blood (08/25/2013 2:11 PM ALLIANCES CONSULTANT) athologist Signature Hemoglobin 14.0 11.8 - 15.5 HP CONVERSION g/dL Specimen Anatomical Collection Method Collection Time Receive d Time (Source) Location / / Volume Laterality 08/25/2013 2:11 PM 4 2:11 ALLIANCES CONSULTANT PM ALLIANCES CONSULTANT Narrative HP CONVERSION - 08/25/2013 2:26 PM ALLIANCES CONSULTANT Performed at [facility], [address] [place] [address] Munira Combs PA-C LAB_1 Performing Organization Address City/[facility] Code Phon e Number HP CONVERSION Vitamin D 25-Hydroxy, Total (08/25/2013 2:11 PM ALLIANCES CONSULTANT) athologist Signature Vitamin D 25 Oh 38 20 - 80 HP CONVERSION ng/mL Comment: Deficiency = <20 Adequate ??= 20-29 Preferred = 30-50 Uncertain safety = 51-80 High = >80 Specimen Anatomical Collection Method Collection Time Receive d Time (Source) Location / / Volume Laterality 08/25/2013 2:11 PM 4 6:14 ALLIANCES CONSULTANT PM ALLIANCES CONSULTANT Munira Combs PA-C LAB_1 Performing Organization Address City/[facility] Phon e Number HP CONVERSION Lipid Panel and Direct LDL(If Needed) (08/25/2013 2:11 PM ALLIANCES CONSULTANT) [facility] Method Time Signature Cholesterol 179 0 [...] Volume Laterality 08/25/2013 2:11 PM 4 2:11 ALLIANCES CONSULTANT PM ALLIANCES CONSULTANT Narrative HP CONVERSION - 08/25/2013 3:41 PM ALLIANCES CONSULTANT Performed at [facility], [address] [place] [address] Munira Combs PA-C LAB_1 Performing Organization Address City/[facility] Phon e Number HP CONVERSION GLUCOSE (08/25/2013 2:11 PM ALLIANCES CONSULTANT) P athologist Signature Lab Glucose 89 60 - 100 HP CONVERSION mg/dL Specimen Anatomical Collection Method Collection Time Receive d Time (Source) Location / / Volume Laterality 08/25/2013 2:11 PM 4 2:11 ALLIANCES CONSULTANT PM ALLIANCES CONSULTANT Narrative HP CONVERSION - 08/25/2013 3:41 PM ALLIANCES CONSULTANT Performed at [facility], [address] [place] [address] Munira Combs PA-C LAB_1 Performing Organization Address [...] hypertension documented in this encounter Care Teams Firefighter Marine Relationship Specialty Start Date End Date Munira Combs PA-C PCP - General 09/25/10 03/14/15 [address] [place] [address] documented as of this encounter
--- OUTSIDE RECORDS SUMMARY | 2022-05-09 19:29 | XMS_ITS | Encounter Summary ---
:1975 Author Organization [employer] Address [address] [address] Care Team Providers Name Role Phone Sherie Baez PA-C Primary Care Provider Reason for Visit Reason Comments Refill Encounter Details Date Type Department Care Team Description 08/07/2013 Refill [facility] Sherie Falcon PA-C Refill [address] [place] [id number] [place] [address] (Wo rk) Social History Tobacco Use Types Packs/Day Years Used Date Smoking Tobacco: Never Assessed Sex Assigned at Date Recorded Female 05/09/2021 7:19 PM WHEAT GROWER documented as of this encounter Nursing Notes Danica Haskins RN - 08/07/2013 10:37 AM CST Renewed medication per medication refill protocol. Requested Prescriptions Signed Prescriptions Disp Refills ??? norgestimate-ethinyl estradiol (TRINESSA, 28,) 0.18/0.215/0.25 mg-35 mcg (28) tablet 28 tablet 0 Sig: Take 1 tablet by mouth daily (every 24 hours). Follow package directions Authorizing Provider: SHERIE BAEZ Ordering User: DANICA HASKINS T GROWER Danica aHskins RN - 08/07/2013 10:36 AM WHEAT GROWER From: Iggy Duarte To: Sherie Baez PA-C Sent: 08/07/2013 10:17 AM WHEAT GROWER Subject: Medication Renewal Request Original authorizing provider: MAVIS Palacio would like a refill of the following medications: norgestimate-ethinyl estradiol (TRINESSA, 28,) 0.18/0.215/0.25 mg-35 mcg (28) tablet [Sherie Baez PA-C] Preferred pharmacy: [address] [address] [facility] Comment: I have requested an appt with dates available from the . I am on my last week of medication and this is the soonest I can get in. I would like to have a 1 month supply sent to [facility] if the prescription is approved. Thank You documented in this encounter Miscellaneous Notes Refill (Converted) - Mychart, Generic Provider - 08/07/2013 10:37 AM WHEAT GROWER RE: Medication Renewal Request From User: DANICA HASKINS, Your refill has been sent. ----- Message ----- From: IGGY DUARTE Sent: 08/07/2013 10:17 AM WHEAT GROWER To: Sherie Baez PA-C Subject: Medication Renewal Request Original authorizing provider: MAVIS Palacio would like a refill of the following medications: norgestimate-ethinyl estradiol (TRINESSA, 28,) 0.18/0.215/0.25 mg-35 mcg (28) tablet [Sherie Baez PA-C] Preferred pharmacy: [address] [address] [facility] Comment: I have requested an appt with dates available from the . I am on my last week of medication and this is the soonest I can get in. I would like to have a 1 month supply sent to [facility] if the prescription is approved. Thank You T GROWER documented in this encounter Plan of Treatment Upcoming Encounters Date Type Specialty Care Team Description 05/12/2022 Hospital Encounter Chemo Therapy/Infusion Services 09/15/2022 Telemedicine Gastroenterology Eusebio Haines MD [address] [place] [address] documented as of this encounter Visit Diagnoses Not on filedocumented in this encounter Care Teams Financial Sales Representative Relationship Specialty Start Date End Date Sherie Baez PA-C PCP - General 09/25/10 03/14/15 [address] [place], [place] [id number] documented as of this encounter
--- OUTSIDE RECORDS SUMMARY | 2022-05-09 19:29 | XMS_ITS | Encounter Summary ---
:1975 Author Organization [facility] Address [address] [place] [address] Care Team Providers Name Role Phone Munira Combs PA-C Primary Care Provider Reason for Visit Reason Comments Refill Encounter Details Date Type Department Care Team Description 08/26/2014 Refill [facility] Munira Falcon PA-C Refill [address] [facility] [address] [place] [address] [place] [address] (Wo rk) Social History Tobacco Use Types Packs/Day Years Used Date Smoking Tobacco: Never Assessed Sex Assigned at Date Recorded Female 05/09/2021 7:19 PM PIPE BOWL PAINT TRIMMER documented as of this encounter Nursing Notes User, Bryan - 08/27/2014 9:32 AM CST triamterene-hydrochlorothiazide (MAXZIDE-25) [...] - K: 3.9mEq/L on 08/25/2013 Powered by [employer], Reference: [id number], 08/26/2014 3:45:35 PM PIPE BOWL PAINT TRIMMER, Pool: DEANDRA FP REFILL ([id number]) User, Antwanash - 08/27/2014 9:32 AM CST The following lab order(s) may be associated with the following Patient Result Comment (Entered by Munira Combs at 08/26/2013 11:45 AM): LAB CREATININE These look great. User Shaneljosé miguel - 08/27/2014 9:32 AM CST The following [...] a qualifying visit prior to further refills. BOWL PAINT TRIMMER Indira Jones - 08/26/2014 3:45 PM CST Pt is out of requested mediation(s). Please send approved refill OSMANY, if appropriate. documented in this encounter Miscellaneous Notes Letter - Talita Bassett - 08/26/2014 12:00 AM CST Images from the original note were not included. [facility] [address] [place] [address] Idania Duarte [address] [facility] [address] August 27, 2014 Dear Idania Duarte, We received your request for the following prescription(s): Orders Placed This Encounter Medications ??? triamterene-hydrochlorothiazide (MAXZIDE-25) 37.5-25 mg per tablet Sig: Take 1 tablet by mouth daily (every 24 hours). Dispense: 90 tablet Refill: 0 Your request was approved. You will need an appointment with your provider before your next refill. Please call [facility] at [phone] to schedule an appointment within 30 days. Thank you for choosing [facility] for your health care needs. Your [facility] Primary Care Team BOWL PAINT TRIMMER documented in this encounter Plan of Treatment Upcoming Encounters Date Type Specialty Care Team Description 05/12/2022 Hospital Encounter Chemo Therapy/Infusion Services 09/15/2022 Telemedicine Gastroenterology Eusebio Haines MD [address] [place] [address] documented as of this encounter Visit Diagnoses Diagnosis HTN (hypertension) (HRC) - Primary Unspecified essential hypertension documented in this encounter Care Teams Foot Tender Relationship Specialty Start Date End Date Munira Combs PA-C PCP - General 09/25/10 03/14/15 [address] [place] [address] documented as of this encounter
--- OUTSIDE RECORDS SUMMARY | 2022-05-09 19:29 | XMS_ITS | Encounter Summary ---
:1975 Author Organization [employer] Address [address] [place] [address] Care Team Providers Name Role Phone Sherie Baez PA-C Primary Care Provider Reason for Visit Reason Comments Refill Encounter Details Date Type Department Care Team Description 08/16/2012 Refill [facility] Sherie Falcon PA-C Refill [address] [facility] [address] [place] [phone] [place] [address] (Wo rk) Social History Tobacco Use Types Packs/Day Years Used Date Smoking Tobacco: Never Assessed Sex Assigned at Date Recorded Female 05/09/2021 7:19 PM SVP RESEARCH AND STRATEGIC ANALYSIS documented as of this encounter Nursing Notes [...] pharmacy as requested by pt. Indira Mckeon 08/16/2012 9:41 AM CST Pt mailed in her rx from 08/10/12 but will run out before mail order pharmacy can send her the rx. [facility] till then. Please send new rx if appropriate, thank you. RESEARCH AND STRATEGIC ANALYSIS documented in this encounter Plan of Treatment Upcoming Encounters Date Type Specialty Care Team Description 05/12/2022 Hospital Encounter Chemo Therapy/Infusion Services 09/15/2022 Telemedicine Gastroenterology Eusebio Haines MD [address] [place] [address] documented as of this encounter Visit Diagnoses Diagnosis HTN (hypertension) (HRC) - Primary Unspecified essential hypertension documented in this encounter Care Teams Tool Lapper Hand Relationship Specialty Start Date End Date Sherie Baez PA-C PCP - General 09/25/10 03/14/15 [address] [place], [place] [id number] documented as of this encounter
--- OUTSIDE RECORDS SUMMARY | 2022-05-09 19:29 | XMS_ITS | Encounter Summary ---
:1975 Author Organization [employer] Address [address] [place] [address] Care Team Providers Name Role Phone Munira Combs PA-C Primary Care Provider Reason for Visit Reason Comments Skin Check Encounter Details Date Type Department Care Team Description 10/07/2014 Office Visit [facility] [address], Benign neoplasm of skin of trunk, except scrotum (Primary Dx); Dermatology GLASS CUTTING MACHINE FEEDER, JACK TAMP OPERATOR Personal history of other malignant neop lasm of skin; [address] [facility] [address] Per cindy history of malignant melanoma of skin; [address] Screening for malignant neoplasm of the skin; [place], [place] f[place] spot; [phone] [address] [employer]; [phone] (Wo rk) BCC (basal cell carcinoma), leg, left Social History Tobacco Use Types Packs/Day Years Used Date Smoking Tobacco: Never Assessed Sex Assigned at Date Recorded Female 05/09/2021 7:19 PM INDUSTRY CONSULTANT documented as of this encounter Patient Instructions Patient InstructionsBlaire Avilez RN - 10/07/2014 8:44 AM CDT Care [...] the site. Please call the clinic at [phone] if you experience any of these symptoms. When should my sutures be removed? Please schedule your nurse appointment at the vest front presser for the suture removal within 7-14 days. [...] within 2 weeks, please call us at [phone]. documented in this encounter Progress Notes Rylee Schwartz V, GLASS CUTTING MACHINE FEEDER, JACK TAMP OPERATOR - 10/22/2014 12:08 PM CDT HPI: Idania [...] 11/01/2010 ??? BCC (basal cell carcinoma), leg ([facility]) 08/11/2011 ??? HTN (hypertension) ([facility]) 08/11/2011 ??? Concussion 08/11/2011 ??? Obesity ([facility]) 08/11/2011 ??? Hx of tonsillectomy 08/11/2011 ??? 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 [...] Is leaving a message ok: YES # [phone] message okay 2. Moles to watch. Mole [...] treatment options------Notes Recorded by Rylee Taylor APRN, JACK TAMP OPERATOR on 10/09/2014 at 12:45 PM Called patient [...] my message and which treatment she prefers. STRY CONSULTANT documented in this encounter Plan of Treatment Upcoming Encounters Date Type Specialty Care Team Description 05/12/2022 Hospital Encounter Chemo Therapy/Infusion Services 09/15/2022 Telemedicine Gastroenterology Eusebio Haines MD [address] [place], [place] [id number] documented as of this encounter Procedures Procedure Name Priority Date/Time Associated Diagnosis Comme nts SURGICAL PATHDONAL Routine 10/07/2014 7:00 AM Re sults for this NICOET CDT procedure are i n the results section. documented in this encounter Results Pathology Report (10/07/2014 7:00 AM CDT) Component Value Ref Test Analysis Performed At [facility] gist Range Method Time Signature Path: [facility] [place] [address] HP CONVERSION ? FINAL DERMATOPATHOLOGY REPORT Pathology #: [id number] ? Date Obtained: 10/07/2014 ?Date Received: 10/07/2014 [...] treatment options------Notes Recorded by Rylee Taylor APRN, CNP on 10/09/2014 at 12:45 PM Called patient [...] left documented in this encounter Care Teams Director Financial Systems Relationship Specialty Start Date End Date Munira Combs PA-C PCP - General 09/25/10 03/14/15 [address] [place] [address] documented as of this encounter
--- OUTSIDE RECORDS SUMMARY | 2022-05-09 19:29 | XMS_ITS | Encounter Summary ---
:1975 Author Organization [employer] Address [address] [place] [address] Care Team Providers Name Role Phone Kinga Pickett APRN, CNP Primary Care Provider [phone] Encounter Details Date Type Department Care Team Description 03/24/2015 Lab Visit [facility] [address] Routine s creening for STI Laboratory (sexually transmitted [address] infection) [place] [address] Social History Tobacco Use Types Packs/Day Years Used Date Smoking Tobacco: Never Assessed Sex Assigned at Date Recorded Female 05/09/2021 7:19 PM CLINICAL ESTHETICIAN documented as of this encounter Plan of Treatment Upcoming Encounters Date Type Specialty Care Team Description 05/12/2022 Hospital Encounter Chemo Therapy/Infusion Services 09/15/2022 Telemedicine Gastroenterology Eusebio Haines MD [address] [place], [place] [address] documented as of this encounter Procedures Procedure Name Priority Date/Time Associated Diagnosis Comme nts CHLAMYDIA & GC, Routine 03/24/2015 6:10 PM Routine screening R esults for this URINE (14 YEARS AND CDT for STI (sexually pro cedure are in OLDER) transmitted the results infection) section. documented in this encounter Results Chlamydia & GC, Urine (03/24/2015 6:10 PM CDT) [facility] Urine Negative Negative HP CONVERSION Chlamydia STD Comment: Test Performed by [employer] Med[employer] Amplification Results obtained from this source are no t FDA approved. CLIA Number [id number] Urine N. gonnorrhoeae STD Negative Negative HP C ONVERSION Comment: Test Performed by [employer] Results obtained from this source are no t FDA approved. Performed at [facility], [address] ??[address] CLIA Number [id number] Specimen Anatomical Collection Method Collection Time Receive [...] se documented in this encounter Care Teams Folding Machine Feeder Relationship Specialty Start Date End Date Kinga Pickett APRN, CNP PCP - General 03/15/15 07/04/16 [address] [place] [address] documented as of this encounter
--- OUTSIDE RECORDS SUMMARY | 2022-05-09 19:29 | XMS_ITS | Encounter Summary ---
:1975 Author Organization [employer] Address [address] [address] Care Team Providers Name Role Phone Munira Combs PA-C Primary Care Provider Reason for Visit Reason Comments Refill Encounter Details Date Type Department Care Team Description 02/11/2015 Refill [facility] E[facility] Sue PA-C Refill [address] [place] [address] [place], [place] [phone] (Wo rk) Social History Tobacco Use Types Packs/Day Years Used Date Smoking Tobacco: Never Assessed Sex Assigned at Date Recorded Female 05/09/2021 7:19 PM SKATES OPERATOR documented as of this encounter Nursing Notes Sindy Duron LPN - 02/11/2015 9:43 AM CDT Rx to pharm Justin Dunaway PA-C - 02/11/2015 9:38 AM CDT Rx on Sindy's desk Ifrah Khanna - 02/11/2015 9:24 AM CDT PRINT, SIGN AND BRING TO [facility] LORAZEPAM 0.5MG TABS QTY 30 LAST FILLED 02/01/2015 LAST OFFICE VISIT 01/18/2015 documented in this encounter Plan of Treatment Upcoming Encounters Date Type Specialty Care Team Description 05/12/2022 Hospital Encounter Chemo Therapy/Infusion Services 09/15/2022 Telemedicine Gastroenterology Eusebio Haines MD [address] [place] [address] documented as of this encounter Visit Diagnoses Diagnosis JANNET (generalized anxiety disorder) (HRC) - Primary Generalized anxiety disorder Situational stress (HRC) Other psychological or physical stress, not elsewhere classified documented in this encounter Care Teams Network Relations Consultant Relationship Specialty Start Date End Date Munira Combs PA-C PCP - General 09/25/10 03/14/15 [address] [place] [address] documented as of this encounter
--- OUTSIDE RECORDS SUMMARY | 2022-05-09 19:29 | XMS_ITS | Encounter Summary ---
:1975 Author Organization [employer] Address [address] [address] Care Team Providers Name Role Phone Munira Combs PA-C Primary Care Provider Reason for Visit Reason Comments Annual Exam Encounter Details Date Type Department Care Team Description 08/25/2013 Office Visit [facility] Munira Combs PA-C Annual physical exam (Primary Dx); Medicine [address] [facility] HTN (hypertension); [address] Irritable bowel syndrome; [place] [address] [place], [place] Screening for other and unsp ecified deficiency anemia; [phone] Screening cholesterol level; [phone] (Wo rk) Screening for diabetes mellitus Social History Tobacco Use Types Packs/Day Years Used Date Smoking Tobacco: Never Assessed Sex Assigned at Date Recorded Female 05/09/2021 7:19 PM PRINT COLOR OPERATOR documented as of this encounter Last Filed Vital Signs Vital Sign Reading Time Taken Comments Blood Pressure 150/82 08/25/2013 1:31 PM PRINT COLOR OPERATOR Pulse 98 08/25/2013 1:31 PM PRINT COLOR OPERATOR Temperature - - Respiratory Rate - - Oxygen Saturation - - Inhaled Oxygen Concentration - - Weight 88.1 kg (194 lb 4 oz) 08/25/2013 1:31 PM PRINT COLOR OPERATOR Height 167.6 cm (5' 6) 08/25/2013 1:31 PM PRINT COLOR OPERATOR Body Mass Index 31.35 08/25/2013 1:31 PM PRINT COLOR OPERATOR documented in this encounter Patient Instructions Patient InstructionsStrongMunira PA-C - 08/25/2013 1:58 PM CST Please [...] You can schedule theappointment at our front end software developer or by calling . Chandrika is in clinic on Tuesdays, ,and Fridays. 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 [...] axillary LAD, bilaterally : external anatomy normal. [place] rugated vagina. No cervical lesions. No CMT. [...] You can schedule theappointment at our front end software developer or by calling . Chandrika is in clinic on Tuesdays, ,and Fridays. T COLOR OPERATOR documented in this encounter Plan of Treatment Upcoming Encounters Date Type Specialty Care Team Description 05/12/2022 Hospital Encounter Chemo Therapy/Infusion Services 09/15/2022 Telemedicine Gastroenterology Eusebio Haines MD [address] [place] [address] documented as of this encounter Visit Diagnoses Diagnosis Annual physical exam - Primary Routine general medical examination at a health care facility HTN (hypertension) (HRC) Unspecified essential hypertension Irritable bowel syndrome Screening for other and unspecified defi ciency anemia Screening cholesterol level Screening for lipoid disorders Screening for diabetes mellitus documented in this encounter Care Teams Control Clerk Repairs Relationship Specialty Start Date End Date Munira Combs PA-C PCP - General 09/25/10 03/14/15 [address] [place] [address] documented as of this encounter
--- OUTSIDE RECORDS SUMMARY | 2022-05-09 19:29 | XMS_ITS | Encounter Summary ---
:1975 Author Organization [employer] Address [address], [place] [address] Care Team Providers Name Role Phone Munira Combs PA-C Primary Care Provider Reason for Visit Reason Comments Refill Encounter Details Date Type Department Care Team Description 11/03/2014 Refill [facility] [address] APRN, AUTOMOBILE UPHOLSTERER APPRENTICE Refill Dermatology [address] [place] [address] [place], [place] [address] [phone] Social History Tobacco Use Types Packs/Day Years Used Date Smoking Tobacco: Never Assessed Sex Assigned at Date Recorded Female 05/09/2021 7:19 PM VP DIGITAL MARKETING documented as of this encounter Nursing Notes [...] at her annual skin checks. Berkley Scott, MARIO - 11/03/2014 2:33 PM CDT LV 10/07/14 [...] 09/15/2022 Telemedicine Gastroenterology Eusebio Haines MD [address] [place] [address] documented as of this encounter Visit Diagnoses Not on filedocumented in this encounter Care Teams Cyber Systems Administrator Relationship Specialty Start Date End Date Munira Combs PA-C PCP - General 09/25/10 03/14/15 [address] [place] [address] documented as of this encounter
--- OUTSIDE RECORDS SUMMARY | 2022-05-09 19:29 | XMS_ITS | Encounter Summary ---
:1975 Author Organization [employer] Address [address], [place] [address] Care Team Providers Name Role Phone Munira Combs PA-C Primary Care Provider Reason for Visit Reason Comments Refill Encounter Details Date Type Department Care Team Description 03/04/2015 Refill [facility] Medicin e Ene Sue PA-C Refill [address] [place] [address] [place], [place] [phone] (Wo rk) Social History Tobacco Use Types Packs/Day Years Used Date Smoking Tobacco: Never Assessed Sex Assigned at Date Recorded Female 05/09/2021 7:19 PM CHRONOMETER ADJUSTER documented as of this encounter Nursing Notes Jordana Holley - 03/04/2015 4:49 PM CDT Rx signed by SHAKA Burrell. Rx walked to [facility]. Ene Sue PA-C - 03/04/2015 4:28 PM CDT printed Raissa Hopper 03/04/2015 2:08 PM CDT PLEASE PRINT SIGN AND DELIVER REFILL [facility] LORAZEPAM 0.5 MG TAB 30 LAST VISIT 01/18/15 LAST FILL 02/11/15 documented in this encounter Plan of Treatment Upcoming Encounters Date Type Specialty Care Team Description 05/12/2022 Hospital Encounter Chemo Therapy/Infusion Services 09/15/2022 Telemedicine Gastroenterology Eusebio Haines MD [address] [place] [address] documented as of this encounter Visit Diagnoses Diagnosis JANNET (generalized anxiety disorder) (HRC) - Primary Generalized anxiety disorder Situational stress (HRC) Other psychological or physical stress, not elsewhere classified documented in this encounter Care Teams Marble Setter Helper Relationship Specialty Start Date End Date Munira Combs PA-C PCP - General 09/25/10 03/14/15 [address] [place], [place] [phone] documented as of this encounter
--- OUTSIDE RECORDS SUMMARY | 2022-05-09 19:29 | XMS_ITS | Encounter Summary ---
:1975 Author Organization [employer] Address [address] [place] [address] Care Team Providers Name Role Phone Munira Combs PA-C Primary Care Provider Encounter Details Date Type Department Care Team Description 08/10/2012 Lab Visit [facility] HTN (hypertension) [address] [place], [place] [address] Social History Tobacco Use Types Packs/Day Years Used Date Smoking Tobacco: Never Assessed Sex Assigned at Date Recorded Female 05/09/2021 7:19 PM MODERATE NEEDS TEACHER documented as of this encounter Plan of Treatment Upcoming Encounters Date Type Specialty Care Team Description 05/12/2022 Hospital Encounter Chemo Therapy/Infusion Services 09/15/2022 Telemedicine Gastroenterology Eusebio Haines MD [address] [place] [address] documented as of this encounter Procedures Procedure Name Priority Date/Time Associated Diagnosis Comme nts CREATININE / GFR Routine 08/10/2012 8:32 AM HTN (hypertension) Results for this MODERATE NEEDS TEACHER procedure are i n the results section. ELECTROLYTE PANEL Routine 08/10/2012 8:32 AM HTN (hypertension ) Results for this MODERATE NEEDS TEACHER procedure are i n the results section. documented in this encounter Results Creatinine / GFR (08/10/2012 8:32 AM MODERATE NEEDS TEACHER) P athologist Signature Creatinine 0.9 0.4 - [...] Volume Laterality 08/10/2012 8:32 AM 3 8:32 MODERATE NEEDS TEACHER AM MODERATE NEEDS TEACHER Narrative HP CONVERSION - 08/10/2012 9:24 AM MODERATE NEEDS TEACHER Performed at [facility], [address] [place] [address] Munira Combs PA-C LAB_1 Performing Organization Address City/[facility] Phon e Number HP CONVERSION Electrolyte Panel (08/10/2012 8:32 AM MODERATE NEEDS TEACHER) athologist Signature Sodium 141 137 - 147 HP CONVERSION mEq/L Potassium 3.6 3.5 - 5.2 HP CONVERSION mEq/L Chloride 106 98 - 110 HP CONVERSION mEq/L Bicarbonate 30 23 - 33 HP CONVERSION mmol/L Specimen Anatomical Collection Method Collection Time Receive d Time (Source) Location / / Volume Laterality 08/10/2012 8:32 AM 3 8:32 MODERATE NEEDS TEACHER AM MODERATE NEEDS TEACHER Narrative HP CONVERSION - 08/10/2012 9:24 AM MODERATE NEEDS TEACHER Performed at [facility], [address] [place] [address] Munira Combs PA-C LAB_1 Performing Organization Address City/[facility] Phon e Number HP CONVERSION documented in this encounter Visit Diagnoses Diagnosis HTN (hypertension) (HRC) Unspecified essential hypertension documented in this encounter Care Teams Shuttle Filler Relationship Specialty Start Date End Date Munira Combs PA-C PCP - General 09/25/10 03/14/15 [address] [place] [address] documented as of this encounter
--- OUTSIDE RECORDS SUMMARY | 2022-05-09 19:29 | XMS_ITS | Encounter Summary ---
:1975 Author Organization [employer] Address [address] [place] [address] Care Team Providers Name Role Phone Kinga Pickett APRN, CNP Primary Care Provider [phone] Encounter Details Date Type Department Care Team Description 03/24/2015 Lab Visit [facility] [address] Elevated WBC count (Primary Dx); Laboratory Routine screening for STI (s exually transmitted infection); [address] 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 documented as of this encounter Plan of Treatment Upcoming Encounters Date Type Specialty Care Team Description 05/12/2022 Hospital Encounter Chemo Therapy/Infusion Services 09/15/2022 Telemedicine Gastroenterology Eusebio Haines MD [address] [place] [address] documented as of this encounter Procedures Procedure Name Priority Date/Time Associated Diagnosis Comme nts IRON BINDING CAPACITY Routine 03/24/2015 11:39 Bruise Sherine sults for this (INCL IRON) AM CDT [...] Results (ABNORMAL) Differential (03/24/2015 11:39 AM CDT) [facility] gist Method Time Signature Absolute 9.4 (H) [...] - 03/24/2015 12:13 PM CDT Performed at [facility], [facility] [place] [address] Kinga Pickett APRN, SIERRA LAB_1 Performing Organization [...] - 03/24/2015 9:00 PM CDT Performed at [facility], [facility] [place] [id number] Kinga Pickett APRN, CNP LAB_1 Performing Organization Address City/[facility] Phon e Number HP CONVERSION IRON BINDING [...] - 03/24/2015 9:00 PM CDT Performed at [facility], [facility] [place] [address] Kinga Pickett APRN, CNP LAB_1 Performing Organization Address [facility] Phon e Number HP CONVERSION (ABNORMAL) Complete Blood Count W/Diff (03/24/2015 11:39 AM CDT) [facility] gist Method Time Signature White Blood Cell [...] - 03/24/2015 12:13 PM CDT Performed at [facility], [facility] [place] [address] Kinga Pickett APRN, CNP LAB_1 Performing Organization Address City/[facility] Phon e Number HP CONVERSION Treponema Screen (03/24/2015 11:39 AM CDT) [facility] Method Time Signature Treponema Non Reactive Non Reactive HP CONVERSION Screen Specimen Anatomical Collection Method Collection Time Receive d Time (Source) Location / / Volume Laterality 03/24/2015 11:39 03/24/2015 2:53 AM CDT PM CDT Narrative HP CONVERSION - 03/25/2015 9:55 AM CDT Performed at [facility], [facility] [place] [address] Kinga Pickett APRN, CNP LAB_1 Performing Organization Address [facility] Phon e Number HP CONVERSION HIV ANTIBODY (03/24/2015 11:39 AM CDT) athologist Signature HIV 1/HIV 2 Non-React Non-Reacti HP CONVERSION ve Specimen Anatomical Collection Method Collection Time Receive d Time (Source) Location / / Volume Laterality 03/24/2015 11:39 03/24/2015 2:53 AM CDT PM CDT Narrative HP CONVERSION - 03/25/2015 12:01 AM CDT Performed at [facility], [address] [place] [address] Kinga Pickett APRN, CNP LAB_1 Performing Organization Address [facility] Phon e Number HP CONVERSION Hepatitis C Antibody, with Reflex (03/24/2015 11:39 AM CDT) [facility] Method Time Signature Hepatitis C Non-React Non-Reacti HP CONVERSION Antibody ve Specimen Anatomical Collection Method Collection Time Receive d Time (Source) Location / / Volume Laterality 03/24/2015 11:39 03/24/2015 2:53 AM CDT PM CDT Narrative HP CONVERSION - 03/24/2015 9:00 PM CDT Performed at [facility], [address] [place], [place] [address] Kinga Pickett APRN, CNP LAB_1 Performing Organization Address [facility] Phon e Number HP CONVERSION documented in this encounter Visit Diagnoses Diagnosis Elevated WBC count (HRC) - Primary Leukocytosis, unspecified Routine screening for STI (sexually jaquez smitted infection) Screening examination for venereal disea se Bruise Contusion of unspecified site documented in this encounter Care Teams Field Marketing Representative Relationship Specialty Start Date End Date Kinga Pickett, DIGGING MACHINE OPERATOR, ENGINEERING TEST SPECIALIST PCP - General 03/15/15 07/04/16 [address] [place] [address] documented as of this encounter
--- OUTSIDE RECORDS SUMMARY | 2022-05-09 19:29 | XMS_ITS | Encounter Summary ---
:1975 Author Organization [employer] Address [address] [address] Care Team Providers Name Role Phone Munira Combs PA-C Primary Care Provider Reason for Visit Reason Comments Refill Encounter Details Date Type Department Care Team Description 01/20/2015 [facility]ill [facility] Ene Sue PA-C Refill [address] [place] [address] [place], [place] [phone] (Wo rk) Social History Tobacco Use Types Packs/Day Years Used Date Smoking Tobacco: Never Assessed Sex Assigned at Date Recorded Female 05/09/2021 7:19 PM LAP LAYER documented as of this encounter Nursing Notes Sidny Duron LPN - 01/21/2015 4:06 PM CDT [...] [Ene Sue PA-C] Preferred pharmacy: [facility] Comment: Can I try a higher dose [...] to. Ene ----- Message ----- From: IDANIA DUARTE Sent: 01/20/2015 10:02 AM CDT To: Ene Sue PA-C Subject: Medication Renewal Request Original authorizing provider: MAVIS Katz would like a refill of the following medications: LORazepam (ATIVAN) 0.5 mg tablet [Ene Sue PA-C] Preferred pharmacy: [facility] Comment: Can I try a higher dose for night time, my is going to be gone for 5 days and night time is just aweful and I think I need something stronger. LAYER documented in this encounter Plan of Treatment Upcoming Encounters Date Type Specialty Care Team Description 05/12/2022 Hospital Encounter Chemo Therapy/Infusion Services 09/15/2022 Telemedicine Gastroenterology Eusebio Haines MD [address] [place] [address] documented as of this encounter Visit Diagnoses Diagnosis JANNET (generalized anxiety disorder) (HRC) Generalized anxiety disorder Situational stress (HRC) Other psychological or physical stress, not elsewhere classified documented in this encounter Care Teams Warehouse Shipping Associate Relationship Specialty Start Date End Date Munira Combs PA-C PCP - General 09/25/10 03/14/15 [address] [place] [address] documented as of this encounter
--- OUTSIDE RECORDS SUMMARY | 2022-05-09 19:29 | XMS_ITS | Encounter Summary ---
:1975 Author Organization [employer] Address [address] [place] [address] Care Team Providers Name Role Phone Munira Combs PA-C Primary Care Provider Reason for Visit Reason Comments Refill Encounter Details Date Type Department Care Team Description 05/25/2013 Refill [facility] Munira Falcon PA-C Refill [address] [facility] [address] [place] [address] [place] [address] (Wo rk) Social History Tobacco Use Types Packs/Day Years Used Date Smoking Tobacco: Never Assessed Sex Assigned at Date Recorded Female 05/09/2021 7:19 PM MEDICAL AFFAIRS SPECIALIST documented as of this encounter Nursing Notes July Martinez LPN - 05/26/2013 8:51 AM MEDICAL AFFAIRS SPECIALIST From: Iggy Duarte To: Munira Combs PA-C Sent: 05/25/2013 8:12 PM MEDICAL AFFAIRS SPECIALIST Subject: Medication Renewal Request Original authorizing provider: MAVIS Palacio Fernando Felicia would like a refill of the following medications: amitriptyline (ELAVIL) 25 mg tablet [Munira Combs PA-C] dicyclomine (BENTYL) 20 mg tablet [Munira Combs PA-C] norgestimate-ethinyl estradiol (TRINESSA, 28,) 0.18/0.215/0.25 mg-35 mcg (28) tablet [Munira Combs PA-C] triamterene-hydrochlorothiazide (MAXZIDE-25) 37.5-25 mg per tablet [Munira Combs PA-C] Preferred pharmacy: Other - [facility], Comment: [facility] has been trying to contact the [facility] and there has been no returned calls or renewals of my medications sent in. They said to contact the clinc and let them know I need to order my refills and have the prescriptions sent to my mail order pharmacy. documented in this encounter Miscellaneous Notes Refill (Converted) - Gary Christy Provider - 05/26/2013 2:10 PM MEDICAL AFFAIRS SPECIALIST RE: Medication Renewal Request From User: JULY MARTINEZ, Your prescriptions have been faxed to [facility] mail order pharmacy. Thanks July ----- Message ----- From: IGGY DUARTE Sent: 05/25/2013 8:12 PM MEDICAL AFFAIRS SPECIALIST To: Munira Combs PA-C Subject: Medication Renewal Request Original authorizing provider: MAVIS Palacio would like a refill of the following medications: amitriptyline (ELAVIL) 25 mg tablet [Munira Combs PA-C] dicyclomine (BENTYL) 20 mg tablet [Munira Combs PA-C] norgestimate-ethinyl estradiol (TRINESSA, 28,) 0.18/0.215/0.25 mg-35 mcg (28) tablet [Munira Combs PA-C] triamterene-hydrochlorothiazide (MAXZIDE-25) 37.5-25 mg per tablet [Munira Combs PA-C] Preferred pharmacy: Other - [facility], Comment: [facility] has been trying to contact the [facility] and there has been no returned calls or renewals of my medications sent in. They said to contact the clin and let them know I need to order my refills and have the prescriptions sent to my mail order pharmacy. CAL AFFAIRS SPECIALIST documented in this encounter Plan of Treatment Upcoming Encounters Date Type Specialty Care Team Description 05/12/2022 Hospital Encounter Chemo Therapy/Infusion Services 09/15/2022 Telemedicine Gastroenterology Eusebio Haines MD [address] [place] [address] documented as of this encounter Visit Diagnoses Diagnosis Irritable bowel syndrome HTN (hypertension) (HRC) Unspecified essential hypertension documented in this encounter Care Teams Installment Agent Relationship Specialty Start Date End Date Munira Combs PA-C PCP - General 09/25/10 03/14/15 [address] [place], [place] [id number] documented as of this encounter
--- OUTSIDE RECORDS SUMMARY | 2022-05-09 19:29 | XMS_ITS | Encounter Summary ---
:1975 Author Organization [employer] Address [address] [place] [address] Care Team Providers Name Role Phone Munira Combs PA-C Primary Care Provider Reason for Visit Reason Comments Refill Encounter Details Date Type Department Care Team Description 05/25/[address] [facility] Munira Falcon PA-C Refill [address] [employer] [address] [place] [address] [place] [address] [phone] (Wo rk) Social History Tobacco Use Types Packs/Day Years Used Date Smoking Tobacco: Never Assessed Sex Assigned at Date Recorded Female 05/09/2021 7:19 PM OUTSOLE LEVELER documented as of this encounter Nursing Notes Munira Combs PA-C - 05/26/2013 11:03 AM CST I can send rxs but needs appt in Jul 2013. OLE LEVELER July Martinez LPN - 05/26/2013 8:51 AM OUTSOLE LEVELER From: Iggy Duarte To: Munira Combs PA-C Sent: 05/25/2013 8:09 PM OUTSOLE LEVELER Subject: Medication Renewal Request Original authorizing provider: MAVIS Palacio Fernando Felicia would like a refill of the following medications: amitriptyline (ELAVIL) 25 mg tablet [Munira Combs PA-C] dicyclomine (BENTYL) 20 mg tablet [Munira Combs PA-C] norgestimate-ethinyl estradiol (TRINESSA, 28,) 0.18/0.215/0.25 mg-35 mcg (28) tablet [Munira Combs PA-C] triamterene-hydrochlorothiazide (MAXZIDE-25) 37.5-25 mg per tablet [Munira Combs PA-C] Preferred pharmacy: Other - [facility] Comment: documented in this encounter Miscellaneous Notes Refill (Converted) - Mychart, Generic Provider - 05/26/2013 11:13 AM OUTSOLE LEVELER RE: Medication Renewal Request From User: JULY MARTINEZ Ann Marie is able to refill prescriptions, but she states you will need an appointment for a med check in Jul. Thanks. July ----- Message ----- From: IGGY DUARTE Sent: 05/25/2013 8:09 PM OUTSOLE LEVELER To: Munira Combs PA-C Subject: Medication Renewal Request Original authorizing provider: MAVIS Palacio would like a refill of the following medications: amitriptyline (ELAVIL) 25 mg tablet [Munira Combs PA-C] dicyclomine (BENTYL) 20 mg tablet [Munira Combs PA-C] norgestimate-ethinyl estradiol (TRINESSA, 28,) 0.18/0.215/0.25 mg-35 mcg (28) tablet [Munira Combs PA-C] triamterene-hydrochlorothiazide (MAXZIDE-25) 37.5-25 mg per tablet [Munira Combs PA-C] Preferred pharmacy: Other - [facility] Comment: OLE LEVELER documented in this encounter Plan of Treatment Upcoming Encounters Date Type Specialty Care Team Description 05/12/2022 Hospital Encounter Chemo Therapy/Infusion Services 09/15/2022 Telemedicine Gastroenterology Eusebio Haines MD [address] [place] [address] documented as of this encounter Visit Diagnoses Diagnosis Irritable bowel syndrome - Primary HTN (hypertension) (HRC) Unspecified essential hypertension documented in this encounter Care Teams Shirring Machine Operator Automatic Relationship Specialty Start Date End Date Munira Combs PA-C PCP - General 09/25/10 03/14/15 [address] [place], [place] [phone] documented as of this encounter
--- OUTSIDE RECORDS SUMMARY | 2022-05-09 19:29 | XMS_ITS | Encounter Summary ---
:1975 Author Organization [employer] Address [address] [place] [address] Care Team Providers Name Role Phone Munira Combs PA-C Primary Care Provider Reason for Visit Reason Comments Refill Encounter Details Date Type Department Care Team Description 04/30/2014 Refill [facility] Rebecca Knox MD Refill [address] [place] [address] [place] [address] [phone] (Wo rk) Social History Tobacco Use Types Packs/Day Years Used Date Smoking Tobacco: Never Assessed Sex Assigned at Date Recorded Female 05/09/2021 7:19 PM FABRIC WORKER documented as of this encounter Nursing Notes Marce Lundberg MD - 05/01/2014 10:49 AM CST sent, my chart message to have nurse BP check. IC WORKER Myranda Cochran RN - 05/01/2014 10:14 AM [...] daily (every 24 hours). Patient takes continously IC WORKER Myranda Cochran RN - 05/01/2014 10:09 AM FABRIC WORKER From: Iggy Duarte To: PATTI Perez Sent: 04/30/2014 9:53 PM FABRIC WORKER Subject: Medication Renewal Request Original authorizing provider: PATTI Perez would like a refill of the following medications: norethindrone-ethinyl estradiol (NECON 1/35, 28,) 1-35 mg-mcg per tablet [PATTI Perez] Preferred pharmacy: [address] Comment: I have been taking the control continuously for 3 months then a week break. I have about a week left of the 84 tables I filled in feb. Can I please have a refill for 112 tablets for a 84 day supply sent to [facility] in [place]. I do not think I am due for a yearly exam until August? Thank you documented in this encounter Miscellaneous Notes Refill (Converted) - Gary Christy Provider - 05/01/2014 10:48 AM FABRIC WORKER RE: Medication Renewal Request From User: MARCE LUNDBERG had wanted you to have a nurse blood pressure check to be sure the OCP is safe for you - I would like you to stop into the clinic during business hours for a nurse check. You are right, you will be due for a visit in August. I did send your refills. ----- Message ----- From: IGGY DUARTE Sent: 04/30/2014 9:53 PM FABRIC WORKER To: PATTI Perez Subject: Medication Renewal Request Original authorizing provider: PATTI Perez Iggy Duarte would like a refill of the following medications: norethindrone-ethinyl estradiol (NECON , ,) 1-35 mg-mcg per tablet [PATTI Perez] Preferred pharmacy: [facility] [address] [place] [id number] [address] Comment: I have been taking the control continuously for 3 months then a week break. I have about a week left of the 84 tables I filled in feb. Can I please have a refill for 112 tablets for a 84 day supply sent to [facility] in [place]. I do not think I am due for a yearly exam until August? Thank you IC WORKER documented in this encounter Plan of Treatment Upcoming Encounters Date Type Specialty Care Team Description 05/12/2022 Hospital Encounter Chemo Therapy/Infusion Services 09/15/2022 Telemedicine Gastroenterology Eusebio Haines MD [address] [place] [address] documented as of this encounter Visit Diagnoses Not on filedocumented in this encounter Care Teams Auto Rebuilder Relationship Specialty Start Date End Date Munira Combs PA-C PCP - General 09/25/10 03/14/15 [address] [place], [place] [id number] documented as of this encounter
--- OUTSIDE RECORDS SUMMARY | 2022-05-09 19:29 | XMS_ITS | Encounter Summary ---
:1975 Author Organization [employer] Address [address] [place] [address] Care Team Providers Name Role Phone Munira Combs PA-C Primary Care Provider Encounter Details Date Type Department Care Team Description 03/04/2012 Immunization [facility] 3931 Need f or prophylactic [facility] vaccination and [address] inoculation against [place], [place] influen za (Primary Dx) [phone] Social History Tobacco Use Types Packs/Day Years Used Date Smoking Tobacco: Never Assessed Sex Assigned at Date Recorded Female 05/09/2021 7:19 PM GASOLINE SERVICE ATTENDANT documented as of this encounter Plan of Treatment Upcoming Encounters Date Type Specialty Care Team Description 05/12/2022 Hospital Encounter Chemo Therapy/Infusion Services 09/15/2022 Telemedicine Gastroenterology Eusebio Haines MD [address] [place] [address] documented as of this encounter Visit Diagnoses Diagnosis Need for prophylactic vaccination and in oculation against influenza - Primary documented in this encounter Care Teams Copper Etcher Relationship Specialty Start Date End Date Munira Combs PA-C PCP - General 09/25/10 03/14/15 [address] [place] [address] documented as of this encounter
--- OUTSIDE RECORDS SUMMARY | 2022-05-09 19:29 | XMS_ITS | Encounter Summary ---
:1975 Author Organization [employer] Address [address] [place] [address] Care Team Providers Name Role Phone Munira Combs PA-C Primary Care Provider Encounter Details Date Type Department Care Team Description 01/09/2014 Lab Visit [facility] 3931 Screen ing for diabetes mellitus; Outpatient Laborator y Screening for lipoid disorde rs; 39[address] [facility] Screening examination for pu lmonary tuberculosis; [place] [address] Antibody response examinatio n [phone] Social History Tobacco Use Types Packs/Day Years Used Date Smoking Tobacco: Never Assessed Sex Assigned at Date Recorded Female 05/09/2021 7:19 PM PROTOTYPE SPECIAL BUILD documented as of this encounter Plan of Treatment Upcoming Encounters Date Type Specialty Care Team Description 05/12/2022 Hospital Encounter Chemo Therapy/Infusion Services 09/15/2022 Telemedicine Gastroenterology Eusebio Haines MD [address] [place] [address] documented as of this encounter [...] Ivan Donis MD LAB_1 Performing Organization Address City/[facility]/ZIP Code Phon e Number HP CONVERSION Mumps Immune Status, IgG (01/09/2014 8:50 AM CDT) P athologist Signature Mumps Immune Immune Immune HP CONVERSION Status (IgG) Specimen Anatomical Collection Method Collection Time Receive d Time (Source) Location / / Volume Laterality 01/09/2014 8:50 AM 4 9:01 CDT AM CDT Ivan Donis MD LAB_1 Performing Organization Address City/[facility]/ZIP Code Phon e Number HP CONVERSION QUANTIFERON [...] diagnostic evaluations. ??The performanc e of the RUST format of the test has not been [...] Ivan Donis MD LAB_1 Performing Organization Address City/[facility]/ZIP [facility] Phon e Number HP CONVERSION Cholesterol, Total and HDL (01/09/2014 8:50 AM CDT) P athologist Signature Cholesterol 187 0 - 200 HP CONVERSION mg/dL HDL Cholesterol 58 >39 mg/dL HP CONVERSION Cholesterol/HDL 3.2 HP CONVERSION Ratio Screen Specimen Anatomical Collection Method Collection Time Receive d Time (Source) Location / / Volume Laterality 01/09/2014 8:50 AM 4 9:01 CDT AM CDT Ivan Donis MD LAB_1 Performing Organization Address City/[facility]/ZIP [facility] Phon e Number HP CONVERSION GLUCOSE (01/09/2014 8:50 AM CDT) P athologist Signature Lab Glucose 83 60 - 100 HP CONVERSION mg/dL Specimen Anatomical Collection Method Collection Time Receive d Time (Source) Location / / Volume Laterality 01/09/2014 8:50 AM 4 9:01 CDT AM CDT Ivan Donis MD LAB_1 Performing Organization Address City/State/ZIP [facility] Phon e Number HP CONVERSION documented in this encounter Visit Diagnoses Diagnosis Screening for diabetes mellitus Screening for lipoid disorders Screening examination for pulmonary tube rculosis Antibody response examination documented in this encounter Care Teams File Conversion Operator Relationship Specialty Start Date End Date Munira Combs PA-C PCP - General 09/25/10 03/14/15 [address] [place] [address] documented as of this encounter
--- OUTSIDE RECORDS SUMMARY | 2022-05-09 19:29 | XMS_ITS | Encounter Summary ---
:1975 Author Organization [employer] Address [address] [place] [address] Care Team Providers Name Role Phone Munira Combs PA-C Primary Care Provider Encounter Details Date Type Department Care Team Description 09/30/2014 Lab Visit [facility] [address] L aboratory Well adult exam; [address] [place] [address] Social History Tobacco Use Types Packs/Day Years Used Date Smoking Tobacco: Never Assessed Sex Assigned at Date Recorded Female 05/09/2021 7:19 PM SCREENING TECH documented as of this encounter Plan of Treatment Upcoming Encounters Date Type Specialty Care Team Description 05/12/2022 Hospital Encounter Chemo Therapy/Infusion Services 09/15/2022 Telemedicine Gastroenterology Eusebio Haines MD [address] [place] [address] documented as of this encounter [...] - 09/30/2014 12:16 PM CDT Performed at [facility], [address] [place] [address] Kinga Pickett APRN, SIERRA LAB_1 Performing Organization [...] - 09/30/2014 12:16 PM CDT Performed at [facility], [address] [place] [address] Kinga Pickett APRN, CNP LAB_1 Performing Organization Address [facility] Phon e Number HP CONVERSION (ABNORMAL) Complete Blood Count-No Diff (09/30/2014 9:36 AM CDT) [facility] Method Time Signature White Blood Cell 12.2 [...] - 09/30/2014 9:45 AM CDT Performed at [facility], [address] [place] [address] Kinga Pickett APRN, CNP LAB_1 Performing Organization Address [facility] Phon e Number HP CONVERSION GLUCOSE (09/30/2014 9:36 AM CDT) athologist Signature Lab Glucose 94 60 - 100 HP CONVERSION mg/dL Specimen Anatomical Collection Method Collection Time Receive d Time (Source) Location / / Volume Laterality 09/30/2014 9:36 AM 5 9:36 CDT AM CDT Narrative HP CONVERSION - 09/30/2014 12:16 PM CDT Performed at [facility], [address] [place] [address] Kinga Pickett APRN, CNP LAB_1 Performing Organization Address [facility] Phon e Number HP CONVERSION (ABNORMAL) [...] - 09/30/2014 12:16 PM CDT Performed at [facility], [address] [place] [address] Kinga Pickett APRN, CNP LAB_1 Performing Organization Address City/[facility] Phon e Number HP CONVERSION TSH AND FREE T4 (FRT4 IF TSH ABNORM) (09/30/2014 9:36 AM CDT) athologist Signature Thyroid 1.96 0.20 - HP CONVERSION Stimulating 4.50 mIU/L Hormone Specimen Anatomical Collection Method Collection Time Receive d Time (Source) Location / / Volume Laterality 09/30/2014 9:36 AM 5 CDT 11:21 AM CDT Narrative HP CONVERSION - 09/30/2014 11:54 AM CDT Performed at [facility], [address] [place] [address] Kinga Pickett APRN, CNP LAB_1 Performing Organization Address City/[facility] Phon e Number HP CONVERSION documented in this encounter Visit Diagnoses Diagnosis Well adult exam Routine general medical examination at a health care facility Essential hypertension (HRC) Unspecified essential hypertension documented in this encounter Care Teams Grinder Lap Relationship Specialty Start Date End Date Munira Combs PA-C PCP - General 09/25/10 03/14/15 [address] [place] [address] documented as of this encounter
--- OUTSIDE RECORDS SUMMARY | 2022-05-09 19:29 | XMS_ITS | Encounter Summary ---
:1975 Author Organization [employer] Address [address] [place] [address] Care Team Providers Name Role Phone Munira Combs PA-C Primary Care Provider Reason for Visit Reason Comments Refill Encounter Details Date Type Department Care Team Description 03/02/2014 Refill [facility] Munira Falcon PA-C Refill [address] [employer] [address] [place] [phone] [place] [address] (Wo rk) Social History Tobacco Use Types Packs/Day Years Used Date Smoking Tobacco: Never Assessed Sex Assigned at Date Recorded Female 05/09/2021 7:19 PM INKER documented as of this encounter Nursing Notes Omega Mccarthy LPN - 03/04/2014 9:58 AM CDT Pt informed via MyChart of message below. MIT Rebecca Olivares MD - 03/03/2014 1:19 PM CDT Script sent to pharm. Please notify pt that she should come in for a blood pressure check in March. Myranad Cochran RN - 03/03/2014 10:35 AM CDT [...] [Munira Combs PA-C] Preferred pharmacy: Other - [facility] Comment: Can I go back to taking the Necon 1/35 continousley and stop taking Trinessa. I am working at [employer] again and would like to switch back to Necon continousley instead of the current 's i havebeen on. Necon is covered by my [employer] insurance. Could you send it to [facility]. Thank You documented in this encounter [...] at this time. Please call us at [phone] to schedule an appointment with one of them. Thank you. R Refill (Converted) - Gary Christy Provider - 03/02/2014 10:10 PM CDT Medication Renewal Request From User: Original authorizing provider: MAVIS Palacio Duarte would like a refill of the following medications: norgestimate-ethinyl estradiol (TRINESSA, 28,) 0.18/0.215/0.25 mg-35 mcg (28) tablet [Munira Combs PA-C] [facility] Comment: Can I go back to taking the Necon 1/35 continousley and stop taking Trinessa. I am working at [employer] again and would like to switch back to Necon continousley instead of the current bc's i have been on. Necon is covered by my [employer] [facility]. Could you send it to [facility]. Thank You R documented in this encounter Plan of Treatment Upcoming Encounters Date Type Specialty Care Team Description 05/12/2022 Hospital Encounter Chemo Therapy/Infusion Services 09/15/2022 Telemedicine Gastroenterology Eusebio Haines MD [address] [place] [address] documented as of this encounter Visit Diagnoses Not on filedocumented in this encounter Care Teams Ship Boss Relationship Specialty Start Date End Date Munira Combs PA-C PCP - General 09/25/10 03/14/15 [address] [place] [address] documented as of this encounter
--- OUTSIDE RECORDS SUMMARY | 2022-05-09 19:29 | XMS_ITS | Encounter Summary ---
:1975 Author Organization [employer] Address [address] [place] [address] Care Team Providers Name Role Phone Munira Combs PA-C Primary Care Provider Reason for Visit Reason Comments ANXIETY Encounter Details Date Type Department Care Team Description 01/18/2015 Office Visit [facility] Posada e Ene Sue, JANNET (generalized anxiety dis order) (Primary Dx); [address] [place] [address] [address] [facility] [phone] [place] [address] (Wo rk) Social History Tobacco Use Types Packs/Day Years Used Date Smoking Tobacco: Never Assessed Sex Assigned at Date Recorded Female 05/09/2021 7:19 PM CHILD CARE DIRECTOR documented as of this encounter Last Filed [...] Services 09/15/2022 Telemedicine Gastroenterology Eusebio Haines MD [address] [place] [address] documented as of this encounter Visit Diagnoses Diagnosis JANNET (generalized anxiety disorder) (HRC) - Primary Generalized anxiety disorder Situational stress (HRC) Other psychological or physical stress, not elsewhere classified documented in this encounter Care Teams Compounding And Finishing Supervisor Relationship Specialty Start Date End Date Munira Combs PA-C PCP - General 09/25/10 03/14/15 [address] [place] [address] documented as of this encounter
--- OUTSIDE RECORDS SUMMARY | 2022-05-09 19:29 | XMS_ITS | Encounter Summary ---
:1975 Author Organization [employer] Address [address] [place] [address] Care Team Providers Name Role Phone Kinga Pickett APRN, CNP Primary Care Provider [phone] Reason for Visit Reason Comments STD Exposure Encounter Details Date Type Department Care Team Description 03/24/2015 Office Visit [facility] [address] Kinga Pickett Br uise (Primary Dx); Family Medicine [facility] GRANT Routine screening for STI (sexually ajquez smitted infection); [address] influenza 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 KAF:MEDQ C: CONFIRM #: [id number] documented in this encounter Plan of Treatment Upcoming Encounters Date Type Specialty Care Team Description 05/12/2022 Hospital Encounter Chemo Therapy/Infusion Services 09/15/2022 Telemedicine Gastroenterology Eusebio Haines MD [address] [place], [place] [address] documented as of this encounter Visit Diagnoses Diagnosis Bruise - Primary Contusion of unspecified site Routine screening for STI (sexually jaquez smitted infection) Screening examination for venereal disea se Need for influenza vaccination Need for prophylactic vaccination and in oculation against influenza documented in this encounter Care Teams Channel Opener Outsoles Relationship Specialty Start Date End Date Kinga Pickett, MINE EXPLORATION ENGINEER, SPARE HAND CARDING PCP - General 03/15/15 07/04/16 [address] [place] [id number] documented as of this encounter
--- OUTSIDE RECORDS SUMMARY | 2022-05-09 19:29 | XMS_ITS | Encounter Summary ---
:1975 Author Organization [employer] Address [address], [place] [address] Care Team Providers Name Role Phone Munira Combs PA-C Primary Care Provider Reason for Visit Reason Comments Refill Encounter Details Date Type Department Care Team Description 01/28/2015 Refill [facility] Ene Sue PA-C Refill [address] [place] [address] [place], [place] [phone] (Wo rk) Social History Tobacco Use Types Packs/Day Years Used Date Smoking Tobacco: Never Assessed Sex Assigned at Date Recorded Female 05/09/2021 7:19 PM GLOBAL ACCOUNT MANAGER documented as of this encounter Nursing Notes Sindy Duron LPN - 01/28/2015 10:10 AM CDT Rx to pharm Ene Sue PA-C - 01/28/2015 10:05 AM CDT printed MIT Raissa Hopper - 01/28/2015 10:02 AM CDT PLEASE PRINT SIGN AND DELIVER REFILL (Idania states she is not out of med, he has left and she is packing up) NADIA PNC LORAZEPAM 0.5 MG TAB 30 LAST FILL 01/25/15 documented in this encounter Plan of Treatment Upcoming Encounters Date Type Specialty Care Team Description 05/12/2022 Hospital Encounter Chemo Therapy/Infusion Services 09/15/2022 Telemedicine Gastroenterology Eusebio Haines MD [address] [place] [address] documented as of this encounter Visit Diagnoses Diagnosis JANNET (generalized anxiety disorder) (HRC) - Primary Generalized anxiety disorder Situational stress (HRC) Other psychological or physical stress, not elsewhere classified documented in this encounter Care Teams Research Associate Molecular Biology Relationship Specialty Start Date End Date Munira Combs PA-C PCP - General 09/25/10 03/14/15 [address] [place], [place] [id number] documented as of this encounter
--- OUTSIDE RECORDS SUMMARY | 2022-05-09 19:29 | XMS_ITS | Encounter Summary ---
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 She very much enjoys this. She is a current smoker. She does have 1 horse and is exposed to chicken, geese, barn cats, and dogs. She says that she did grow up in [place], and she and her brother spent most [...] [place], [facility] [address] [place] [address] MELANIEK:EAN C: CONFIRM #: [id number] documented in this encounter Miscellaneous Notes MR DOWLING Snapshot - Integration, MD Elmer - 04/02/2015 1:31 PM CDT Images from the original note were not included. [facility] [address] [place] [address] Dept: [phone] [email or web address] Iggy Duarte 04/02/2015 12:50 PM Hospital Encounter Department: [facility] Oncology Dept Description: Female : 1975 Provider: Louisa Patino MD Thank you for choosing [facility] for your health care visit with Louisa Patino MD. We are happy to care for you and provide this summary of your visit. HERE IS WHAT YOU NEED TO KNOW To learn how you can take steps to stay as healthy as you can be visit [email or web address] HERE IS WHAT YOU NEED TO DO Call your clinic if: You develop new symptoms Your symptoms worsen unexpectedly You are not improving as expected You have questions about your visit or medications Your to do list Future Appointments Provider Department Dept Phone 04/28/2015 3:10 PM Louisa Patino MD [facility] Oncology [phone] Future Orders Complete By Ordering Dept. GASTROENTEROLOGY CONSULT ADULT (AMB) As directed [place] [id number] [facility] Scheduling Instructions: Your provider has recommended an appointment with [facility]. You may call [phone] to schedule your appointment. If you prefer, a supervisor shaving and splitting will contact you within the next 3 business days to assist you in setting up this appointment. This recommended service/s may not be covered by your insurance coverage. To find out your specific benefit coverage, please call the number on your insurance card. MEDICAL WEIGHT MANAGEMENT CONSULT ADULT (AMB) As directed [place] [id number] [facility] Scheduling Instructions: Your provider has recommended an appointment with [facility]. You may call [phone] to schedule your appointment. If you prefer, a supervisor shaving and splitting will contact you within the next 3 [...] (every 24 hours). norethindrone-ethinyl estradiol (NECON , ,) 1-35 mg-mcg per tablet (Taking) Take 1 [...] Ethnicity Preferred Language 1975 Female White Non- French This document contains confidential information about your health and care. It is provided directlyto you for your personal, private use only. documented in this encounter Plan of Treatment Upcoming Encounters Date Type Specialty Care Team Description 05/12/2022 Hospital Encounter Chemo Therapy/Infusion Services 09/15/2022 Telemedicine Gastroenterology Eusebio Haines MD [address] [place] [address] documented as of this encounter Visit Diagnoses Diagnosis Elevated WBC count (HRC) Leukocytosis, unspecified documented in this encounter Care Teams Oil Scout Relationship Specialty Start Date End Date Hoang Peacock APRN, AQUATIC FACILITY MANAGER PCP - General 03/15/15 07/04/16 [address] [place] [address] documented as of this encounter
--- OUTSIDE RECORDS SUMMARY | 2022-05-09 19:29 | XMS_ITS | Encounter Summary ---
:1975 Author Organization [employer] Address [address] [address] Care Team Providers Name Role Phone Munira Combs PA-C Primary Care Provider Reason for Visit Reason Comments Basal Cell Carcinoma Encounter Details Date Type Department Care Team Description 11/25/2014 Office Visit [facility] [address] V, History of basal cell Dermatology JACK TAMP OPERATOR, SIERRA cancer (Primary Dx) [address] [place] [address] [facility] [place] [address] [phone] (Wo rk) Social History Tobacco Use Types Packs/Day Years Used Date Smoking Tobacco: Never Assessed Sex Assigned at Date Recorded Female 05/09/2021 7:19 PM MARZIPAN MOLDER documented as of this encounter Progress Notes [...] 11/01/2010 ??? BCC (basal cell carcinoma[place] 08/11/2011 ??? HTN (hypertension) [place] 08/11/2011 ??? Concussion 08/11/2011 ??? Obesity [place] 08/11/2011 ??? Hx of tonsillectomy 08/11/2011 ??? 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 [...] Services 09/15/2022 Telemedicine Gastroenterology Eusebio Haines MD [address] [place], [place] [phone] documented as of this encounter Visit Diagnoses Diagnosis History of basal cell cancer - Primary Personal history of other malignant neop lasm of skin documented in this encounter Care Teams Marketing Content Coordinator Relationship Specialty Start Date End Date Munira Combs PA-C PCP - General 09/25/10 03/14/15 [address] [place] [address] documented as of this encounter
--- OUTSIDE RECORDS SUMMARY | 2022-05-09 19:29 | XMS_ITS | Encounter Summary ---
:1975 Author Organization [employer] Address [address] [place] [address] Care Team Providers Name Role Phone Munira Combs PA-C Primary Care Provider Reason for Visit Reason Comments MEDICATION THERAPY MANAGEMENT Encounter Details Date Type Department Care Team Description 09/19/2013 Office Visit [facility] er for medication management (Primary Dx); Medicine [place] HTN (hypertension) [address] [address] [place] [address] Drive [phone] [place] [address] Social History Tobacco Use Types Packs/Day Years Used Date Smoking Tobacco: Never Assessed Sex Assigned at Date Recorded Female 05/09/2021 7:19 PM STEAM CONDITIONER OPERATOR documented as of this encounter Last [...] Past Medical History: IBS, Chronic Headaches [Medication Adherence/[place]] she reports taking medications 2 times per [...] Del Real, PharmD, BCACP Medication Management Pharmacist [facility] Smartform completed: yes documented in this encounter Plan of Treatment Upcoming Encounters Date Type Specialty Care Team Description 05/12/2022 Hospital Encounter Chemo Therapy/Infusion Services 09/15/2022 Telemedicine Gastroenterology Eusebio Haines MD [address] [place] [address] documented as of this encounter Visit Diagnoses Diagnosis Encounter for medication management - Pr imary HTN (hypertension) (HRC) Unspecified essential hypertension documented in this encounter Care Teams Price Checker Relationship Specialty Start Date End Date Munira Combs PA-C PCP - General 09/25/10 03/14/15 [address] [place], [place] [id number] documented as of this encounter
--- OUTSIDE RECORDS SUMMARY | 2022-05-09 19:29 | XMS_ITS | Encounter Summary ---
:1975 Author Organization [employer] Address [address], [place] [address] Care Team Providers Name Role Phone Munira Combs PA-C Primary Care Provider Reason for Visit Reason Comments Annual Exam Encounter Details Date Type Department Care Team Description 08/10/2012 Office Visit Munira Thompson, Annual p hysical exam (Primary Dx); Medicine [place] Irritable bowel syndrome; [address] [employer] [address] HTN (hypertension); [place] [address] BLVD Tobacco abuse; [phone] [place], [place] Chronic he adaches; [address] Contraceptive management Social History Tobacco Use Types Packs/Day Years Used Date Smoking Tobacco: Never Assessed Sex Assigned at Date Recorded Female 05/09/2021 7:19 PM PLASTIC SHAPER documented as of this encounter Last Filed Vital Signs Vital Sign Reading Time Taken Comments Blood Pressure 126/72 08/10/2012 8:03 AM PLASTIC SHAPER Pulse - - Temperature - - Respiratory Rate - - Oxygen Saturation - - Inhaled Oxygen Concentration - - Weight 88.6 kg (195 lb 4 oz) 08/10/2012 8:03 AM PLASTIC SHAPER Height 168.9 cm (5' 6.5) 08/10/2012 8:03 AM PLASTIC SHAPER Body Mass Index 31.04 08/10/2012 8:03 AM PLASTIC SHAPER documented in this encounter Patient Instructions Patient InstructionsStMunira zuniga PA-C - 08/10/2012 8:13 AM CST Please call the dermatology/skin dept. at [phone] to schedule your appointment. 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 [...] (every 24 hours). ??? norethindrone-ethinyl estradiol (NORTREL 1, 28,) 1-35 mg-mcg per tablet Take 1 [...] Services 09/15/2022 Telemedicine Gastroenterology Eusebio Haines MD [address] [place] [address] documented as of this encounter Visit Diagnoses Diagnosis Annual physical exam - Primary Routine general medical examination at a health care facility Irritable bowel syndrome HTN (hypertension) (HRC) Unspecified essential hypertension Tobacco abuse (HRC) Tobacco use disorder Chronic headaches Headache Contraceptive management Unspecified contraceptive management documented in this encounter Care Teams Structural Steel Worker Helper Relationship Specialty Start Date End Date Munira Combs PA-C PCP - General 09/25/10 03/14/15 [address] [place] [address] documented as of this encounter
--- OUTSIDE RECORDS SUMMARY | 2022-05-09 19:29 | XMS_ITS | Encounter Summary ---
:1975 Author Organization [employer] Address [address] [place] [address] Care Team Providers Name Role Phone Munira Combs PA-C Primary Care Provider Encounter Details Date Type Department Care Team Description 01/09/2014 Notes/Orders [facility] [address] Ivan Donis MD Antibody response examination (Primary D x); [facility] [address] [place] [address] Screen ing examination for pulmonary tuberculosis; Clinic [facility] Screening for diabetes mellitus; [address] [place], [place] Scree kenneth for lipoid disorders [address] [address] [place] [address] [phone] Social History Tobacco Use Types Packs/Day Years Used Date Smoking Tobacco: Never Assessed Sex Assigned at Date Recorded Female 05/09/2021 7:19 PM APPLICATIONS INSTRUCTOR documented as of this encounter Plan of Treatment Upcoming Encounters Date Type Specialty Care Team Description 05/12/2022 Hospital Encounter Chemo Therapy/Infusion Services 09/15/2022 Telemedicine Gastroenterology Eusebio Haines MD [address] [place] [address] documented as of this encounter Visit Diagnoses Diagnosis Antibody response examination - Primary Screening examination for pulmonary tube rculosis Screening for diabetes mellitus Screening for lipoid disorders documented in this encounter Care Teams Ampoule Washing Machine Operator Relationship Specialty Start Date End Date Munira Combs PA-C PCP - General 09/25/10 03/14/15 [address] [place] [address] documented as of this encounter
--- OUTSIDE RECORDS SUMMARY | 2022-05-09 19:29 | XMS_ITS | Encounter Summary ---
:1975 Author Organization [employer] Address [address] [place] [address] Care Team Providers Name Role Phone Munira Combs PA-C Primary Care Provider Reason for Visit Reason Comments Annual Exam Encounter Details Date Type Department Care Team Description 09/30/2014 Office Visit [facility] [address] We [address] adult exam (Primary Dx); Family Medicine BRAKE COUPLER DINKEY, DETAILER Irritable bowel syndrome; [address] (BMI 30-39.9); 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 see below Plan: Walt Emerson was seen today for annual exam. [...] Other Orders - norethindrone-ethinyl estradiol (NECON , ,) 1-35 mg-mcg per tablet; Take 1 tablet [...] 09/15/2022 Telemedicine Gastroenterology Eusebio Haines MD [address] [place], [place] [address] documented as of this encounter Procedures Procedure [...] - 10/05/2014 1:37 PM CDT Performed at [facility], [address] [place] [address] FINAL GYNECOLOGICAL CYTOLOGY REPORT Pathology #: [id number] ?Date Obtained: 09/30/2014 ? Date Received: 10/01/2014 [...] ? End of Report Kinga Pickett APRN, CNP LAB_1 Performing Organization Address City/[facility] Phon e Number HP CONVERSION Pap Smear Order (09/30/2014 9:14 AM CDT) [facility] Method Time Signature Pap Smear Collected HP CONVERSION Monolayer tracking test Specimen Anatomical Collection Method Collection Time Receive d Time (Source) Location / / Volume Laterality 09/30/2014 9:14 AM 5 7:02 CDT AM CDT Narrative HP CONVERSION - 10/05/2014 1:33 PM CDT Performed at [facility], [facility] [place] [address] Kinga Pickett APRN, CNP LAB_1 Performing Organization Address City/[facility] Phon e Number HP CONVERSION documented in this encounter Visit Diagnoses Diagnosis Well adult exam - Primary Routine general medical examination at a health care facility Irritable bowel syndrome Obesity (BMI 30-39.9) (HRC) Obesity, unspecified Essential hypertension (HRC) Unspecified essential hypertension Pap smear for cervical cancer screening Screening for malignant neoplasm of the cervix documented in this encounter Care Teams Compliance Counsel Relationship Specialty Start Date End Date Munira Combs PA-C PCP - General 09/25/10 03/14/15 [address] [place], [place] [phone] documented as of this encounter
--- NOTE | 2022-05-09 19:30 | CRLHL7_ITS ---
For Patients: As a result of the Cures Act, medical imaging exams and procedure reports are released immediately into your electronic medical record. You may view this report before your referring provider. If you have questions, please contact your health care provider. BILATERAL SCREENING MAMMOGRAM WITH COMPUTER-AIDED DETECTION AND TOMOSYNTHESIS TECHNIQUE: CC and MLO views were obtained. These mammographic images have been obtained using full-field digital technique. These mammographic images were interpreted with the benefit of computer-aided detection. Breast Tomosynthesis was used in this interpretation. COMPARISON FILM: 03/24/21, 01/15/18. FINDINGS: The breasts are heterogeneously dense, which may obscure small masses IMPRESSION: There is no radiographic evidence for malignancy. ASSESSMENT: BI-RADS Category 2: Benign RECOMMENDATION: Routine screening mammogram in 1 year. A lay language report of this examination will be provided to the patient. Eusebio Devine M.D. Diagnostic Radiologist [email or web address] CHIP/rl Transcribed: 8:03 p.m. JOYCELYN/Dictated by: Eusebio Devine MD @ 05/10/2022 10:23:00 AM (Electronically Signed)
--- OUTSIDE RECORDS SUMMARY | 2022-05-09 19:30 | XMS_ITS | Encounter Summary ---
:1975 Author Organization [employer] Address [address] [place] [address] Care Team Providers Name Role Phone Munira Combs PA-C Primary Care Provider Encounter Details Date Type Department Care Team Description 02/16/2012 Lab Visit [facility] Diarrhea [address] [place], [place] [id number] Social History Tobacco Use Types Packs/Day Years Used Date Smoking Tobacco: Never Assessed Sex Assigned at Date Recorded Female 05/09/2021 7:19 PM ENVIRONMENTAL SPECIALIST documented as of this encounter Progress Nadia Butt - 02/16/2012 5:32 PM CDT Quick Note: Patient called back. I informed her of positive result, sent prescription to [facility] per herrequest. Patient verbalized understanding. Nadia [...] her of positive result, sent prescription to [facility] per her request. Patient verbalized understanding.------Notes Recorded by Nadia Acosta RN on 02/16/2012 at 3:21 PM Left message for patient to call back. When she calls back, please inform her the C. Diff did come back positive. Please find which pharmacy we should send her antibiotic to. Per Aftab De Souza, she should take Flagyl 500mg po tid x14d. RONMENTAL SPECIALIST documented in this encounter Plan of Treatment Upcoming Encounters Date Type Specialty Care Team Description 05/12/2022 Hospital Encounter Chemo Therapy/Infusion Services 09/15/2022 Telemedicine Gastroenterology Eusebio Haines MD [address] [place] [address] documented as of this encounter Procedures Procedure [...] Results Stool Culture (02/16/2012 7:13 AM CDT) [facility] Method Time Signature Stool Culture No HP CONVERSION Salmonella, Shigella, Campylobacte r, or E coli 0157~isolate d.~Culture screened for Aeromonas, Plesiomonas, and~Vibrio with negative results. If Yersinia is suspected,~p lindsey submit a second culture and request Yersinia. [...] Component Value Ref Test Analysis Performed At [facility] gist Range Method Time Signature Ova & [...] Haim Carroll MD LAB_1 Performing Organization Address City/[facility] Code Phon e Number HP CONVERSION (ABNORMAL) Clostridium Diff by PCR - Outpatient (02/16/2012 7:13 AM CDT) [facility] Method Time Signature Lab N/O Positive [...] her of positive result, sent prescription to [facility] per her request. Patient verbalized understanding.------ [...] Haim Carroll MD LAB_1 Performing Organization Address City/[facility] Phon e Number HP CONVERSION documented in this encounter Visit Diagnoses Diagnosis Diarrhea documented in this encounter Care Teams Textile Engineer Relationship Specialty Start Date End Date Munira Combs PA-C PCP - General 09/25/10 03/14/15 [address] [place] [address] documented as of this encounter
--- OUTSIDE RECORDS SUMMARY | 2022-05-09 19:30 | XMS_ITS | Encounter Summary ---
:1975 Author Organization [employer] Address [address] [address] Care Team Providers Name Role Phone Munira Combs PA-C Primary Care Provider Encounter Details Date Type Department Care Team Description 09/11/2011 Notes/Orders [facility] Munira Falcon PA-C [address] [place] [address] [place] [address] [phone] (Wo rk) Social History Tobacco Use Types Packs/Day Years Used Date Smoking Tobacco: Never Assessed Sex Assigned at Date Recorded Female 05/09/2021 7:19 PM CORN POPPER documented as of this encounter Plan of Treatment Upcoming Encounters Date Type Specialty Care Team Description 05/12/2022 Hospital Encounter Chemo Therapy/Infusion Services 09/15/2022 Telemedicine Gastroenterology Eusebio Haines MD [address] [place] [address] documented as of this encounter Visit Diagnoses Not on filedocumented in this encounter Care Teams Superintendent Drivers Relationship Specialty Start Date End Date Munira Combs PA-C PCP - General 09/25/10 03/14/15 [address] [place] [address] documented as of this encounter
--- OUTSIDE RECORDS SUMMARY | 2022-05-09 19:30 | XMS_ITS | Encounter Summary ---
:1975 Author Organization [employer] Address [address] [place] [address] Care Team Providers Name Role Phone Munira Combs PA-C Primary Care Provider Reason for Visit Reason Comments Refill Encounter Details Date Type Department Care Team Description 11/28/2011 Refill [facility] Munira Falcon PA-C Refill [address] [place] [address] [place] [address] (Wo rk) Social History Tobacco Use Types Packs/Day Years Used Date Smoking Tobacco: Never Assessed Sex Assigned at Date Recorded Female 05/09/2021 7:19 PM PROVIDER NETWORK ANALYST documented as of this encounter Nursing Notes Lillian Vega LPN - 11/28/2011 1:17 PM CDT Pt notified. Munira Combs PA-C - 11/28/2011 12:04 PM CDT Go back to taking 2. Rx sent reflecting higher quantity. Follow up PRN. Helene Hand - 11/28/2011 11:48 AM CDT Pt. was on2 tabs nightly since going to one tab the Pt is having headaches again. Please advise Thanks documented in this encounter Plan of Treatment Upcoming Encounters Date Type Specialty Care Team Description 05/12/2022 Hospital Encounter Chemo Therapy/Infusion Services 09/15/2022 Telemedicine Gastroenterology Eusebio Haines MD [address] [place] [address] documented as of this encounter Visit Diagnoses Not on filedocumented in this encounter Care Teams Associate Director Regulatory Affairs Relationship Specialty Start Date End Date Munira Combs PA-C PCP - General 09/25/10 03/14/15 [address] [place], [place] [phone] documented as of this encounter
--- OUTSIDE RECORDS SUMMARY | 2022-05-09 19:30 | XMS_ITS | Encounter Summary ---
:1975 Author Organization [employer] Address [address] [place] [address] Care Team Providers Name Role Phone Munira Combs PA-C Primary Care Provider Reason for Visit Reason Comments Abdominal Pain Encounter Details Date Type Department Care Team Description 02/15/2012 Hospital Encounter [facility] Haim Carroll Abdominal pain, unspecified site; Gloria Saini MD Diarrhea; [address] [address] [place] Nausea; [address] Colitis; [place], [place] Irritabl e bowel syndrome; [id number] Leukocytosis [phone] Social History Tobacco Use Types Packs/Day Years Used Date Smoking Tobacco: Never Assessed Sex Assigned at Date Recorded Female 05/09/2021 7:19 PM IMAGING SCHEDULER documented as of this encounter Last Filed [...] history: 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 Does smoke some cigarettes. No alcoholabuse noted. [...] on 02/27/2012 at 2:40 PMnegative h. pylori ING SCHEDULER Miscellaneous - 02/15/2012 8:05 PM CDTNotes Recorded by Haim Carroll MD on 02/27/2012 at 2:40 PMnegative h. pylori ING SCHEDULER Miscellaneous - 02/15/2012 8:05 PM CDTNotes Recorded by Haim Carroll MD on 02/27/2012 at 2:40 PMnegative h. pylori ING SCHEDULER Medication History - Elmer Holbrook MD - [...] Services 09/15/2022 Telemedicine Gastroenterology Eusebio Haines MD [address] [place] [address] documented as of this encounter Procedures Procedure [...] Results Urine Culture (02/15/2012 10:44 PM CDT) [facility] gist Method Time Signature Urine Culture No [...] GD (ABNORMAL) Differential (02/15/2012 6:54 PM CDT) [facility] Method Time Signature Absolute 9.0 (H) 1.8 [...] Haim Carroll MD LAB_1 Performing Organization Address City/[facility] Code Phon e Number HP CONVERSION HELICOBACTER PYLORI IGG (02/15/2012 6:54 PM CDT) [facility] Method Time Signature Helicobacter Negative Negative HP [...] - 02/15/2012 7:30 PM CDT Performed at [facility], [address] [place] [address] Haim Carroll MD LAB_1 Performing Organization Address [facility] Phon e Number HP CONVERSION Bilirubin, Total (02/15/2012 6:54 PM CDT) athologist Signature Bilirubin Total 0.2 0.2 - 1.2 HP CONVERSION mg/dL Specimen Anatomical Collection Method Collection Time Receive d Time (Source) Location / / Volume Laterality 02/15/2012 6:54 PM 2 6:54 CDT PM CDT Narrative HP CONVERSION - 02/15/2012 7:30 PM CDT Performed at [facility], [address] [place] [address] Haim Carroll MD LAB_1 Performing Organization Address [facility] Phon e Number HP CONVERSION Alkaline Phosphatase, Total (02/15/2012 6:54 PM CDT) athologist Signature Alk Phos 77 25 - 135 U/L HP CONVERSION Specimen Anatomical Collection Method Collection Time Receive d Time (Source) Location / / Volume Laterality 02/15/2012 6:54 PM 2 6:54 CDT PM CDT Narrative HP CONVERSION - 02/15/2012 7:30 PM CDT Performed at [facility], [address] [place] [address] Haim Carroll MD LAB_1 Performing Organization Address [facility] Phon e Number HP CONVERSION AST (02/15/2012 6:54 PM CDT) [facility] gist Method Time Signature Aspartate 24 0 - 45 HP CONVERSION Aminotransferase U/L Specimen Anatomical Collection Method Collection Time Receive d Time (Source) Location / / Volume Laterality 02/15/2012 6:54 PM 2 6:54 CDT PM CDT Narrative HP CONVERSION - 02/15/2012 7:30 PM CDT Performed at [facility], [address] [place] [address] Haim Carroll MD LAB_1 Performing Organization Address [facility] Phon e Number HP CONVERSION ALT (SGPT) (02/15/2012 6:54 PM CDT) [facility] Method Time Signature Alanine 26 4 - 55 HP CONVERSION Aminotransferase U/L Specimen Anatomical Collection Method Collection Time Receive d Time (Source) Location / / Volume Laterality 02/15/2012 6:54 PM 2 6:54 CDT PM CDT Narrative HP CONVERSION - 02/15/2012 7:30 PM CDT Performed at [facility], [address] [place] [address] Haim Carroll MD LAB_1 Performing Organization Address [facility] Phon e Number HP CONVERSION (ABNORMAL) Hemogram/Plts/Diff (02/15/2012 6:54 PM CDT) [facility] Method Time Signature White Blood Cell 17.4 [...] Haim Carroll MD LAB_1 Performing Organization Address [facility] Phon e Number HP CONVERSION (ABNORMAL) URINE MICROSCOPIC (02/15/2012 6:42 PM CDT) [facility] Method Time Signature Urine WBC 5-9 [...] - 02/15/2012 7:23 PM CDT Performed at [facility], [address] [place] [address] Haim Carroll MD LAB_1 Performing Organization Address [facility] Phon e Number HP CONVERSION (ABNORMAL) URINALYSIS ROUTINE(MICRO IF POS) (02/15/2012 6:42 PM CDT) [facility] Method Time Signature Urine Type Urine:clean HP [...] U Specific 1.020 1.005 - HP CONVERSION [place] 1.030 Urobilinogen Negative Negative HP CONVERSION Urine Eu/dL Specimen Anatomical Collection Method Collection Time Receive d Time (Source) Location / / Volume Laterality Urine: 02/15/2012 6:42 PM 2 7:14 CDT PM CDT Narrative HP CONVERSION - 02/15/2012 7:23 PM CDT Performed at [facility], [address] [place] [address] Haim Carroll MD LAB_1 Performing Organization Address [facility] Phon e Number HP CONVERSION documented in this encounter Visit Diagnoses Diagnosis Abdominal pain, unspecified site Diarrhea Nausea Nausea alone Colitis Other and unspecified noninfectious mónica roenteritis and colitis Irritable bowel syndrome Leukocytosis (HRC) Leukocytosis, unspecified Triage Assessment Note - Jo Reis RN - 02/15/2012 5:51 PM CDT Has been feeling nauseated after taking the Bentyl documented in this encounter Care Teams Medical Diagnostic Radiographer Relationship Specialty Start Date End Date Munira Combs PA-C PCP - General 09/25/10 03/14/15 [address] [place] [address] documented as of this encounter
--- OUTSIDE RECORDS SUMMARY | 2022-05-09 19:30 | XMS_ITS | Encounter Summary ---
:1975 Author Organization [employer] Address [address] [address] Care Team Providers Name Role Phone Munira Combs PA-C Primary Care Provider Encounter Details Date Type Department Care Team Description 11/03/2010 PN Conversion Only FLUORESCENT LAMP REPLACER [address] [place] [address] Social History Tobacco Use Types Packs/Day Years Used Date Smoking Tobacco: Never Assessed Sex Assigned at Date Recorded Female 05/09/2021 7:19 PM MEDIA RECONCILIATION SPECIALIST documented as of this encounter Plan of Treatment Upcoming Encounters Date Type Specialty Care Team Description 05/12/2022 Hospital Encounter Chemo Therapy/Infusion Services 09/15/2022 Telemedicine Gastroenterology Eusebio Haines MD [address] [place] [address] documented as of this encounter [...] on filedocumented in this encounter Care Teams Job Analysis Manager Relationship Specialty Start Date End Date Munira Combs PA-C PCP - General 09/25/10 03/14/15 [address] [place] [address] documented as of this encounter
--- OUTSIDE RECORDS SUMMARY | 2022-05-09 19:30 | XMS_ITS | Encounter Summary ---
:1975 Author Organization [employer] Address [address] [place] [address] Care Team Providers Name Role Phone Munira Combs PA-C Primary Care Provider Encounter Details Date Type Department Care Team Description 11/01/2010 Office Visit [facility] Coral Gasca PA-C [address] [facility] [place] [address] [place] [address] [phone] (Wo rk) Social History Tobacco Use Types Packs/Day Years Used Date Smoking Tobacco: Never Assessed Sex Assigned at Date Recorded Female 05/09/2021 7:19 PM PUSHER RUNNER documented as of this encounter Progress Notes Coral Naranjo PA-C - 11/01/2010 12:01 AM CDT Progress Notes signed by Coral Naranjo PA-C at 11/02/10 0908 Author: Coral Naranjo PA-C Service: (none) Author Type: Physician Associate Professor Computer Science Filed: 11/04/102051 Note Time: 11/01/10 0001 Status: Signed Weathercaster: Coral Naranjo PA-C (Physician Associate Professor Computer Science) NAME: IGGY DUARTE MR#: [id number] ACCT: [id number] VISIT: [id number] DICTATING CLINICIAN: Coral Naranjo PA-C CONFIRM #: [id number] LOC: 1706 CLINIC PROGRESS NOTE DATE OF [...] on treating the fibrocystic breast pain with [place] oil, avoiding caffeine, avoiding smoking, as well as ibuprofen or Tylenol as needed. She does agree with this plan. She will watch for symptoms to worsen or persist. Certainly if they do, she needs to be re-evaluated, and she agrees with this plan. CJB:EAN C: CONFIRM #: [id number] documented in this encounter Plan of Treatment Upcoming Encounters Date Type Specialty Care Team Description 05/12/2022 Hospital Encounter Chemo Therapy/Infusion Services 09/15/2022 Telemedicine Gastroenterology Eusebio Haines MD [address] [place] [address] documented as of this encounter Visit Diagnoses Not on filedocumented in this encounter Care Teams Veneer Jointer Offbearer Relationship Specialty Start Date End Date Munira Combs PA-C PCP - General 09/25/10 03/14/15 [address] [place], [place] [id number] documented as of this encounter
--- OUTSIDE RECORDS SUMMARY | 2022-05-09 19:30 | XMS_ITS | Encounter Summary ---
:1975 Author Organization [email or web address] Address [address] [place] [address] Care Team Providers Name Role Phone Munira Combs PA-C Primary Care Provider Reason for Visit Reason Comments Annual Exam Encounter Details Date Type Department Care Team Description 08/11/2011 Office Visit [facility] Dahiana Pulido Well fem matthew exam with routine gynecological exam (Primary Dx); Pietro GAMBLE HTN (hypertension); [address] Irritable bowel syndrome; [place] [address] [address] Chronic headaches [phone] [place] [address] Social History Tobacco Use Types Packs/Day Years Used Date Smoking Tobacco: Never Assessed Sex Assigned at Date Recorded Female 05/09/2021 7:19 PM HOT BOX OPERATOR documented as of this encounter Last Filed Vital Signs Vital Sign Reading Time Taken Comments Blood Pressure 126/88 08/11/2011 1:00 PM HOT BOX OPERATOR Pulse 112 08/11/2011 1:00 PM HOT BOX OPERATOR Temperature - - Respiratory Rate - - Oxygen Saturation - - Inhaled Oxygen Concentration - - Weight 87.1 kg (192 lb) 08/11/2011 1:00 PM HOT BOX OPERATOR Height 167.6 cm (5' 6) 08/11/2011 1:00 PM HOT BOX OPERATOR Body Mass Index 30.99 08/11/2011 1:00 PM HOT BOX OPERATOR documented in this encounter Patient Instructions Patient InstructionsDahiana Pulido - 08/11/2011 1:26 PM CST All results will be mailed to you. Your pap smear was updated today and will be due again in July 2014. All of your medications have been refilled. Continue with routine dermatology checks. BOX OPERATOR documented in this encounter Progress Notes Dahiana [...] Services 09/15/2022 Telemedicine Gastroenterology Eusebio Haines MD [address] [place] [address] documented as of this encounter Procedures Procedure Name Priority Date/Time Associated Diagnosis Comme nts ANATOMICAL PATH Routine 08/11/2011 1:41 PM Result s for this LIQUID BASED HOT BOX OPERATOR procedure are i n the results section. PAP SMEAR SCREENING Routine 08/11/2011 1:41 PM Well female exa m with Results for this HOT BOX OPERATOR routine gynecological proced ure are in exam the results section. documented in this encounter Results Pap Smear (08/11/2011 1:41 PM HOT BOX OPERATOR) Specimen (Source) Anatomical Collection Method Collection Time Re ceived Time Location / / Volume Laterality 08/11/2011 1:41 PM HOT BOX OPERATOR Narrative HP CONVERSION - 08/16/2011 1:00 PM HOT BOX OPERATOR Final GYNECOLOGICAL CYTOLOGY REPORT Pathology #: [id number] ?Date Obtained: 08/11/2011 ? Date Received: 08/14/2011 [...] Dahiana Pulido PA-C LAB_1 Performing Organization Address City/State/[facility] Code Phon e Number HP CONVERSION Pap Smear Screening (08/11/2011 1:41 PM HOT BOX OPERATOR) P athologist Signature PAP Routine Collected HP CONVERSION Specimen Anatomical Collection Method Collection Time Receive d Time (Source) Location / / Volume Laterality 08/11/2011 1:41 PM 2 5:15 HOT BOX OPERATOR AM HOT BOX OPERATOR Dahiana Pulido PA-C LAB_1 Performing Organization Address City/[facility] Phon e Number HP CONVERSION documented in this encounter Visit Diagnoses Diagnosis Well female exam with routine gynecologi per exam - Primary Routine gynecological examination HTN (hypertension) ([facility]) Unspecified essential hypertension Irritable bowel syndrome Chronic headaches Headache documented in this encounter Care Teams Dive Superintendent Relationship Specialty Start Date End Date Munira Combs PA-C PCP - General 09/25/10 03/14/15 [address] [place] [address] documented as of this encounter
--- OUTSIDE RECORDS SUMMARY | 2022-05-09 19:30 | XMS_ITS | Encounter Summary ---
:1975 Author Organization [employer] Address [address], [place] [address] Care Team Providers Name Role Phone Munira Combs PA-C Primary Care Provider Encounter Details Date Type Department Care Team Description 05/25/2010 Office Visit Justin Younger PA-C [address] [facility] [place] [address] [place] [address] [phone] (Wo rk) Social History Tobacco Use Types Packs/Day Years Used Date Smoking Tobacco: Never Assessed Sex Assigned at Date Recorded Female 05/09/2021 7:19 PM NURSE RECEPTIONIST documented as of this encounter Last Filed Vital Signs Vital Sign Reading Time Taken Comments Blood Pressure 138/70 05/25/2010 1:16 PM NURSE RECEPTIONIST Pulse 74 05/25/2010 1:16 PM NURSE RECEPTIONIST Temperature 37 ??C (98.6 ??F) 05/25/2010 1:16 PM NURSE RECEPTIONIST C: 37.0 C Respiratory Rate - - Oxygen Saturation - - Inhaled Oxygen Concentration - - Weight 91.2 kg (200 lb 15.9 oz) 05/25/2010 1:16 PM NURSE RECEPTIONIST C: 91.2kg Height - - Body Mass Index 32.94 05/25/2009 9:00 AM NURSE RECEPTIONIST documented in this encounter Progress Notes Justin [...] Marital status: , safe relationship. 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 Review of Systems: All systems were reviewed [...] Discharged ambulatory and in stable condition. *SH~DNS~SOAP1 E RECEPTIONIST documented in this encounter Plan of Treatment Upcoming Encounters Date Type Specialty Care Team Description 05/12/2022 Hospital Encounter Chemo Therapy/Infusion Services 09/15/2022 Telemedicine Gastroenterology Eusebio Haines MD [address] [place] [address] documented as of this encounter Procedures Procedure Name Priority Date/Time Associated Diagnosis Comme nts XR ABD FLAT Routine 05/25/2010 2:04 PM Results f or this (STANDARD) NURSE RECEPTIONIST procedure are i n the results section. documented in this encounter Results XR Abd Flat (Standard) (05/25/2010 2:04 PM NURSE RECEPTIONIST) Anatomical Region Laterality Modality Abdomen Other Specimen (Source) Anatomical Location Collection Method / Collectio n Time Received Time / Laterality Volume Impressions 05/25/2010 2:04 PM NURSE RECEPTIONIST : ??Negative supine abdomen. Dictating YIMI STARR MD Narrative 05/25/2010 2:04 PM NURSE RECEPTIONIST COMPARISON: ??None. FINDINGS: ??One view was obtained. [...] on filedocumented in this encounter Care Teams Wood Repatcher Relationship Specialty Start Date End Date Munira Combs PA-C PCP - General 09/25/10 03/14/15 [address] [place] [address] documented as of this encounter
--- OUTSIDE RECORDS SUMMARY | 2022-05-09 19:30 | XMS_ITS | Encounter Summary ---
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 Rufina Morris MD - 11/14/2011 2:55 PM CDT Progress Notes signed by Rufina Morris MD at 11/15/11 1101 Author: Rufina Morris MD Service: (none) Author Type: Physician Filed: 11/15/11 1101 Note Time: 11/14/11 1455 Status: Signed Infant Toddler Lead Teacher: Rufina Morris MD (Physician) NAME: IGGY DUARTE MR#: [id number] CSN: [id number] AUTHENTICATING CLINICIAN: Rufina Morris MD CONFIRM #: [id number] LOC: 527 CLINIC PROGRESS NOTE DATE OF VISIT: 11/14/2011 : 1975 SUBJECTIVE: This 36-year-old woman comes in for complete skin check. She has a history of dysplastic nevi including atypical melanocytic lesion on her mid abdomen removed in the past. Been watching a couple of moles on her skin. She does not really want to have them removed because she does not want scars. She notes no changes in moles. She has used the tanning beds a couple of times because of a trip to [place]. MEDICATIONS: Reviewed in Epic. ALLERGIES: Reviewed in Epic. OBJECTIVE: On exam she is a pleasant woman. She is diffusely dawn, in no distress. Evaluation of face, scalp, neck, anterior-posterior trunk, both upper extremities, lower extremities including palpation of the skin, examination of fingernails and toenails reveal: Face shows no worrisome lesions. She has a number of nevi including again the 1 on the left inferior breast that a photo was taken of today, it is darker brown in color centrally and measures still 7 x 3 mm, so unchanged from previous. She has a couple of moles on the right medial breast as well that measure about 3-4 mm, unchanged from previous and do not appear worrisome on dermoscopy. She has a scar on her mid abdomen, no evidence of recurrent pigment at that site. A number of moles on her back including 1 within her tattoo on her mid upper back that is still very evenly pigmented but slightly obscured by the tattoo ink. No other worrisome moles are noted. ASSESSMENT: History of atypical melanocytic lesion on the mid abdomen without recurrence. Probable dysplastic nevus, left breast. Multiple nevi. PLAN: Photo was taken from the left breast mole today to monitor and again measurement is the same as it had been, so I do not think it is growing or evolving. However, we discussed the safest option for this mole would likely be removal and she will consider that. Followup in 6 months for recheck, sooner if she notes worrisome change. MMB:MEDQ C: CONFIRM #: [id number] documented in this encounter Plan of Treatment Upcoming Encounters Date Type Specialty Care Team Description 05/12/2022 Hospital Encounter Chemo Therapy/Infusion Services 09/15/2022 Telemedicine Gastroenterology Eusebio Haines MD [address] [place], [place] [address] documented as of this encounter Visit Diagnoses Diagnosis Dysplastic nevi - Primary Benign neoplasm of skin, site unspecifie d documented in this encounter Care Teams Undergraduate Advisor Relationship Specialty Start Date End Date Munira Combs PA-C PCP - General 09/25/10 03/14/15 [address] [place], [place] [id number] documented as of this encounter
--- OUTSIDE RECORDS SUMMARY | 2022-05-09 19:30 | XMS_ITS | Encounter Summary ---
:1975 Author Organization [employer] Address [address], [place] [address] Care Team Providers Name Role Phone Munira Combs PA-C Primary Care Provider Encounter Details Date Type Department Care Team Description 10/23/2010 PN Conversion Only 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
--- OUTSIDE RECORDS SUMMARY | 2022-05-09 19:30 | XMS_ITS | Encounter Summary ---
:1975 Author Organization [employer] Address [address] [place] [address] Care Team Providers Name Role Phone Munira Combs PA-C Primary Care Provider Reason for Visit Reason Comments Appt. Scheduled Encounter Details Date Type Department Care Team Description 02/16/2012 Telephone [facility] [address] Eusebio Mcmanus MD Appt. Scheduled Gastroenterology [address] 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 documented as of this encounter Nursing Notes Mitchell Tinajero RN - 02/16/2012 9:08 AM CDT called pt and informed of CON2 on Sunday02/19/12 at 2:30 documented in this encounter Plan of Treatment Upcoming Encounters Date Type Specialty Care Team Description 05/12/2022 Hospital Encounter Chemo Therapy/Infusion Services 09/15/2022 Telemedicine Gastroenterology Eusebio Haines MD [address] [place], [place] [address] documented as of this encounter Visit Diagnoses Not on filedocumented in this encounter Care Teams Mirror Framer Relationship Specialty Start Date End Date Munira Combs PA-C PCP - General 09/25/10 03/14/15 [address] [place] [address] documented as of this encounter
--- OUTSIDE RECORDS SUMMARY | 2022-05-09 19:30 | XMS_ITS | Encounter Summary ---
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 documented as of this encounter Nursing Notes Zully Bell - 09/11/2011 3:29 PM CDT MESSAGE TO PROVIDER Can you send this rx for #112 and taking continuously for insurance auditing purposes documented in this encounter Plan of Treatment Upcoming Encounters Date Type Specialty Care Team Description 05/12/2022 Hospital Encounter Chemo Therapy/Infusion Services 09/15/2022 Telemedicine Gastroenterology Eusebio Haines MD [address] [place] [address] documented as of this encounter Visit Diagnoses Not on filedocumented in this encounter Care Teams Sod Stripper Relationship Specialty Start Date End Date Munira Combs PA-C PCP - General 09/25/10 03/14/15 [address] [place] [address] documented as of this encounter
--- OUTSIDE RECORDS SUMMARY | 2022-05-09 19:30 | XMS_ITS | Encounter Summary ---
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 Comment:- Pharmacy Seq #:-print to [facility] Pharmacy Name-Phone/Fax:- [facility] Street or City:- [facility] Clinician Name:-Chrissy Strong Drug Name/Strength:-Amitriptyline HCL 25MG tab Sig: Dose/Route/Freq:- take 1 to 2 tabs every night at bedtime Quantity & Last Fill:-180 12/31/09 *ECODE~PNRF Created on 16Mar2010 8:40am by CATIE AVILEZ On 17Mar2010 11:31am SMITH NORTH wrote: Renewed medication per medication refill protocol. R RELATIONS WORKER documented in this encounter Plan of Treatment Upcoming Encounters Date Type Specialty Care Team Description 05/12/2022 Hospital Encounter Chemo Therapy/Infusion Services 09/15/2022 Telemedicine Gastroenterology Eusebio Haines MD [address] [place] [address] documented as of this encounter Visit Diagnoses Not on filedocumented in this encounter Care Teams Nascar Racer Relationship Specialty Start Date End Date Munira Combs PA-C PCP - General 09/25/10 03/14/15 [address] [place] [address] documented as of this encounter
--- OUTSIDE RECORDS SUMMARY | 2022-05-09 19:30 | XMS_ITS | Encounter Summary ---
:1975 Author Organization [employer] Address [address], [place] [address] Care Team Providers Name Role Phone Munira Combs PA-C Primary Care Provider Encounter Details Date Type Department Care Team Description 05/25/2010 PN Conversion Only NADIA CONVERSION Justin Dunaway PA-C [address] [place] [address] [place] [address] (Wo rk) Social History Tobacco Use Types Packs/Day Years Used Date Smoking Tobacco: Never Assessed Sex Assigned at Date Recorded Female 05/09/2021 7:19 PM DIRECTOR OF ROOMS documented as of this encounter Plan of Treatment Upcoming Encounters Date Type Specialty Care Team Description 05/12/2022 Hospital Encounter Chemo Therapy/Infusion Services 09/15/2022 Telemedicine Gastroenterology Eusebio Haines MD [address] [place], [place] [address] documented as of this encounter Procedures Procedure Name Priority Date/Time Associated Comments Diagnosis TEST Routine 05/25/2010 1:52 PM Results for this (URINE) DIRECTOR OF ROOMS procedure are i n the results section. URINE MICROSCOPIC Routine 05/25/2010 1:49 PM Resu lts for this DIRECTOR OF ROOMS procedure are i n the results section. URINALYSIS Routine 05/25/2010 1:49 PM Results f or this ROUTINE(MICRO IF POS) DIRECTOR OF ROOMS proced ure are in the results section. COMPLETE BLOOD Routine 05/25/2010 1:36 PM Results for this COUNT-W/DIFF DIRECTOR OF ROOMS procedure are i n the results section. DIFFERENTIAL Routine 05/25/2010 1:36 PM Results f or this DIRECTOR OF ROOMS procedure are i n the results section. URINE CULTURE Routine 05/25/2010 1:35 PM Results for this DIRECTOR OF ROOMS procedure are i n the results section. documented in this encounter Results Test (Urine) (05/25/2010 1:52 PM DIRECTOR OF ROOMS) [facility] Method Time Signature Urine Negative No normal HP CONVERSION Test range Specimen (Source) Anatomical Collection Method Collection Time Re ceived Time Location / / Volume Laterality 05/25/2010 1:52 PM DIRECTOR OF ROOMS Justin Dunaway PA-C LAB_1 Performing Organization Address [facility]/ZIP Code Phon e Number HP CONVERSION (ABNORMAL) URINE MICROSCOPIC (05/25/2010 1:49 PM DIRECTOR OF ROOMS) [facility] Method Time Signature White Blood 3-4 0 - 4 HP CONVERSION Cells Urine /HPF Red Blood Cells 10-24 (A) 0 - 2 HP CONVERSION Urine /HPF Bacteria Urine Few (A) /HPF HP CONVERSION Epithelial Few /HPF HP CONVERSION Cells Specimen (Source) Anatomical Collection Method Collection Time Re ceived Time Location / / Volume Laterality 05/25/2010 1:49 PM DIRECTOR OF ROOMS Justin Dunaway PA-C LAB_1 Performing Organization Address [facility] Code Phon e Number HP CONVERSION (ABNORMAL) URINALYSIS ROUTINE(MICRO IF POS) (05/25/2010 1:49 PM DIRECTOR OF ROOMS) [facility] Method Time Signature Urine Type Cln [...] U Specific 1.015 1.005 - HP CONVERSION [place] 1.030 Urobilinogen Negative Negative HP CONVERSION Urine Eu/dL Specimen (Source) Anatomical Collection Method Collection Time Re ceived Time Location / / Volume Laterality 05/25/2010 1:49 PM DIRECTOR OF ROOMS Justin King Gume GAMBLE LAB_1 Performing Organization Address City/[facility] Phon e Number HP CONVERSION Differential (05/25/2010 1:36 PM DIRECTOR OF ROOMS) P athologist Signature Absolute 6.3 2.0 - [...] / / Volume Laterality 05/25/2010 1:36 PM DIRECTOR OF ROOMS Justin King Gume GAMBLE LAB_1 Performing Organization Address [facility] Phon e Number HP CONVERSION (ABNORMAL) Hemogram/Plts/Diff (05/25/2010 1:36 PM DIRECTOR OF ROOMS) Patholo gist Method Time Signature White Blood [...] / / Volume Laterality 05/25/2010 1:36 PM DIRECTOR OF ROOMS Justin King Gume GAMBLE LAB_1 Performing Organization Address City/[facility] Phon e Number HP CONVERSION Urine Culture (05/25/2010 1:35 PM DIRECTOR OF ROOMS) Analysis Performed At Patho logist Time Signature [...] / / Volume Laterality 05/25/2010 1:35 PM DIRECTOR OF ROOMS Justin Dunaway PA-C LAB_1 Performing Organization Address City/State/ZIP Code Phon e Number HP CONVERSION documented in this encounter Visit Diagnoses Not on filedocumented in this encounter Care Teams Director Of Field Sales Relationship Specialty Start Date End Date Munira Combs PA-C PCP - General 09/25/10 03/14/15 [address] [place] [address] documented as of this encounter
--- OUTSIDE RECORDS SUMMARY | 2022-05-09 19:30 | XMS_ITS | Encounter Summary ---
:1975 Author Organization [employer] Address [address], [place] [address] Care Team Providers Name Role Phone Sherie Baez PA-C Primary Care Provider Reason for Visit Reason Comments Refill Encounter Details Date Type Department Care Team Description 07/05/2011 Refill [facility] Sherie Falcon PA-C Refill [phone] [place] [id number] [place] [address] (Wo rk) Social History Tobacco Use Types Packs/Day Years Used Date Smoking Tobacco: Never Assessed Sex Assigned at Date Recorded Female 05/09/2021 7:19 PM ELEVATED MOTORMAN documented as of this encounter Nursing Notes Talita Burton - 07/07/2011 11:02 AM CST 07-07-11 advised pt rx faxed to pharmacy, advised pt med check or well visit needed MIT Huong Ellis - 07/07/2011 8:27 AM CST [...] 09/15/2022 Telemedicine Gastroenterology Eusebio Haines MD [address] [place] [address] documented as of this encounter Visit Diagnoses Not on filedocumented in this encounter Care Teams Elevator Constructor Electric Relationship Specialty Start Date End Date Sherie Baez, PAZitaC PCP - General 09/25/10 03/14/15 [address] [place], [place] [phone] documented as of this encounter
--- OUTSIDE RECORDS SUMMARY | 2022-05-09 19:30 | XMS_ITS | Encounter Summary ---
:1975 [facility] Address [address] [place] [address] Care Team Providers Name Role Phone Munira Combs PA-C Primary Care Provider Encounter Details Date Type Department Care Team Description 01/11/2010 Office Visit [place] [address] [place] [address] [place] [address] [phone] (Wo rk) Social History Tobacco Use Types Packs/Day Years Used Date Smoking Tobacco: Never Assessed Sex Assigned at Date Recorded Female 05/09/2021 7:19 PM RN PLASTICS documented as of this encounter Progress Notes Rufina Parker MD - 01/11/2010 12:01 AM CDT Progress Notes signed by Rufina Parker MD at 02/03/10 1609 Author: Rufina Parker MD Service: (none) Author Type: Physician Filed: 10/15/10 6540 Note Time: 01/11/10 0001 Status: Signed Systems Specialist: Rufina Parker MD (Physician) NAME: IGGY DUARTE MR#: [id number] ACCT: [id number] VISIT: [id number] DICTATING CLINICIAN: RUFINA PARKER MD CONFIRM #: [id number] LOC: 527 CLINIC PROGRESS NOTE DATE OF [...] avoidance of tanning beds and sun recommended. MMB:[id number] C: 01/12/10 12:13 CONFIRM #: [id number] documented in this encounter Plan of Treatment Upcoming Encounters Date Type Specialty Care Team Description 05/12/2022 Hospital Encounter Chemo Therapy/Infusion Services 09/15/2022 Telemedicine Gastroenterology Eusebio Haines MD [address] [place], [place] [address] documented as of this encounter Visit Diagnoses Not on filedocumented in this encounter Care Teams Cyber Engineer Relationship Specialty Start Date End Date Muinra Combs PA-C PCP - General 09/25/10 03/14/15 [address] [place], [place] [phone] documented as of this encounter
--- OUTSIDE RECORDS SUMMARY | 2022-05-09 19:30 | XMS_ITS | Encounter Summary ---
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 documented as of this encounter Plan of Treatment Upcoming Encounters Date Type Specialty Care Team Description 05/12/2022 Hospital Encounter Chemo Therapy/Infusion Services 09/15/2022 Telemedicine Gastroenterology Eusebio Haines MD [address] [place] [address] documented as of this encounter [...] - 02/16/2011 5:05 PM CDT Performed at [facility], [address] [place] [address] Munira Combs PA-C LAB_1 Performing Organization Address [facility] Phon e Number HP CONVERSION VENIPUNCTURE (MELANI) (02/16/2011 12:34 PM CDT) athologist Signature Venipuncture Done HP CONVERSION Specimen (Source) Anatomical Collection Method Collection Time Re ceived Time Location / / Volume Laterality 02/16/2011 12:34 PM CDT Narrative HP CONVERSION - 02/16/2011 12:34 PM CDT Performed at [facility], [address] [place] [address] Munira Combs PA-C LAB_1 Performing Organization Address [facility] Phon e Number HP CONVERSION documented in this encounter Visit Diagnoses Diagnosis Unspecified essential hypertension (HRC) Unspecified essential hypertension documented in this encounter Care Teams Shuttle Route Vehicle Operator Relationship Specialty Start Date End Date Munira Combs PA-C PCP - General 09/25/10 03/14/15 [address] [place] [address] documented as of this encounter
--- OUTSIDE RECORDS SUMMARY | 2022-05-09 19:30 | XMS_ITS | Encounter Summary ---
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 documented in this encounter Plan of Treatment Upcoming Encounters Date Type Specialty Care Team Description 05/12/2022 Hospital Encounter Chemo Therapy/Infusion Services 09/15/2022 Telemedicine Gastroenterology Eusebio Haines MD [address] [place], [place] [address] documented as of this encounter Visit Diagnoses Not on filedocumented in this encounter Care Teams Operations Program Manager Relationship Specialty Start Date End Date Munira Combs PA-C PCP - General 09/25/10 03/14/15 [address] [place] [address] documented as of this encounter
--- OUTSIDE RECORDS SUMMARY | 2022-05-09 19:30 | XMS_ITS | Encounter Summary ---
:1975 Author Organization [employer] Address [address], [place] [address] Care Team Providers Name Role Phone Sherie Baez PA-C Primary Care Provider Reason for Referral Specialty Diagnoses / Procedures Referred By Contact Refer red To Contact Haim Petty MD [address] [place], [place] [address] Referral ID Status Reason Start Date Expiration Date Visits Requ ested Visits Authorized Encounter Details Date Type Department Care Team Description 02/19/2012 Initial [facility] Eusebio Mcmanus In testinal infection due to Clostridium difficile; [address] Abdominal pain, unspecified site; Gastroenterology [address] Diarrhea; 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 difficile although she does work at [employer] in the [facility] and occasionally is exposed to people with [...] is , has no children, lives in [place], works at [employer] in [place].Likes to show courses as a hobby. She [...] plan for management. CC: SHERIE BAEZ PA-C [address] [place] [address] DRS:EAN C: CONFIRM #: [id number] documented in this encounter Plan of Treatment Upcoming Encounters Date Type Specialty Care Team Description 05/12/2022 Hospital Encounter Chemo Therapy/Infusion Services 09/15/2022 Telemedicine Gastroenterology Eusebio Haines MD [address] [place] [address] Scheduled Referrals Name Type Priority Associated Diagnoses [...] syndrome documented in this encounter Care Teams Gambling Floor Supervisor Relationship Specialty Start Date End Date Sherie Baez PA-C PCP - General 09/25/10 03/14/15 [address] [place] [address] documented as of this encounter
--- OUTSIDE RECORDS SUMMARY | 2022-05-09 19:30 | XMS_ITS | Encounter Summary ---
:1975 Author Organization [employer] Address [address] [place] [address] Care Team Providers Name Role Phone Munira Combs PA-C Primary Care Provider Encounter Details Date Type Department Care Team Description 07/06/2010 PN Conversion Only [place] CONVERSION Munira Combs PA-C [address] [facility] [place] [place] [address] [place] [address] (Wo rk) Social History Tobacco Use Types Packs/Day Years Used Date Smoking Tobacco: Never Assessed Sex Assigned at Date Recorded Female 05/09/2021 7:19 PM MANAGER PRODUCT DESIGN documented as of this encounter Plan of Treatment Upcoming Encounters Date Type Specialty Care Team Description 05/12/2022 Hospital Encounter Chemo Therapy/Infusion Services 09/15/2022 Telemedicine Gastroenterology Eusebio Haines MD [address] [place], [place] [address] documented as of this encounter Procedures Procedure Name Priority Date/Time Associated Comments Diagnosis GLUCOSE Routine 07/06/2010 8:25 AM Results f or this MANAGER PRODUCT DESIGN procedure are i n the results section. THYROID STIMULATING Routine 07/06/2010 8:25 AM Re sults for this HORMONE MANAGER PRODUCT DESIGN procedure are i n the results section. LIPID PANEL AND Routine 07/06/2010 8:25 AM Result s for this DIRECT LDL(IF NEEDED) MANAGER PRODUCT DESIGN proced ure are in the results section. VITAMIN D 25-HYDROXY, Routine 07/06/2010 8:25 AM Results for this TOTAL MANAGER PRODUCT DESIGN procedure are i n the results section. ELECTROLYTE PANEL Routine 07/06/2010 8:25 AM Resu lts for this MANAGER PRODUCT DESIGN procedure are i n the results section. documented in this encounter Results (ABNORMAL) Vitamin D 25-Hydroxy, Total (07/06/2010 8:25 AM MANAGER PRODUCT DESIGN) athologist Signature Vitamin D 25 26 (L) 30 - 80 HP CONVERSION Oh ng/mL Comment: This assay accurately quantifies the sum of vitamin D3, 25-hydroxy and vitamin D2, 25-hydroxy 0 - 17 years: Deficiency: Less than 20 ng/mL Optimum level: Greater than or equal to 20 ng/mL* *(Jitendra BREWER et al. Pediatrics 2008; 122: 1128-38) 18 years and older: Deficiency: Less than 20 ng/mL Insufficiency: 20 - 29 ng/mL Optimum level: 30 - 80 ng/mL Possible toxicity: Greater than 150 ng/m L Specimen (Source) Anatomical Collection Method Collection Time Re ceived Time Location / / Volume Laterality 07/06/2010 8:25 AM MANAGER PRODUCT DESIGN Munira Combs PA-C LAB_1 Performing Organization Address City/State/ZIP Code Phon e Number HP CONVERSION THYROID STIMULATING HORMONE (07/06/2010 8:25 AM MANAGER PRODUCT DESIGN) athologist Signature Thyroid 1.59 0.20 - HP CONVERSION Stimulating 4.50 mIU/L Hormone Specimen (Source) Anatomical Collection Method Collection Time Re ceived Time Location / / Volume Laterality 07/06/2010 8:25 AM MANAGER PRODUCT DESIGN Munira Combs PA-C LAB_1 Performing Organization Address City/State/ZIP Code Phon e Number HP CONVERSION Lipid Panel and Direct LDL(If Needed) (07/06/2010 8:25 AM MANAGER PRODUCT DESIGN) Patholo gist Method Time Signature Cholesterol 184 [...] / / Volume Laterality 07/06/2010 8:25 AM MANAGER PRODUCT DESIGN Munira Combs PA-C LAB_1 Performing Organization Address City/[facility]/ZIP Code Phon e Number HP CONVERSION Electrolyte Panel (07/06/2010 8:25 AM MANAGER PRODUCT DESIGN) P athologist Signature Sodium 140 137 - 147 HP CONVERSION mEq/L Potassium 3.8 3.5 - 5.2 HP CONVERSION mEq/L Chloride 103 98 - 110 HP CONVERSION mEq/L Bicarbonate 29 23 - 33 HP CONVERSION mmol/L Specimen (Source) Anatomical Collection Method Collection Time Re ceived Time Location / / Volume Laterality 07/06/2010 8:25 AM MANAGER PRODUCT DESIGN Munira Combs PA-C LAB_1 Performing Organization Address City/[facility] Code Phon e Number HP CONVERSION GLUCOSE (07/06/2010 8:25 AM MANAGER PRODUCT DESIGN) P athologist Signature Lab Glucose 83 60 - 100 HP CONVERSION mg/dL Specimen (Source) Anatomical Collection Method Collection Time Re ceived Time Location / / Volume Laterality 07/06/2010 8:25 AM MANAGER PRODUCT DESIGN Munira Combs PA-C LAB_1 Performing Organization Address City/[facility] Phon e Number HP CONVERSION documented in this encounter Visit Diagnoses Not on filedocumented in this encounter Care Teams Muff Winder Relationship Specialty Start Date End Date Munira Combs PA-C PCP - General 09/25/10 03/14/15 [address] [place] [address] documented as of this encounter
--- OUTSIDE RECORDS SUMMARY | 2022-05-09 19:30 | XMS_ITS | Encounter Summary ---
:1975 Author Organization [facility] [facility] Address [address] [place] [address] Care Team Providers Name Role Phone Munira Combs PA-C Primary Care Provider Encounter Details Date Type Department Care Team Description 08/11/2011 Lab Visit [facility] [place] [phone] [address] [place] [address] Social History Tobacco Use Types Packs/Day Years Used Date Smoking Tobacco: Never Assessed Sex Assigned at Date Recorded Female 05/09/2021 7:19 PM B AND B GANG WORKER documented as of this encounter Plan of Treatment Upcoming Encounters Date Type Specialty Care Team Description 05/12/2022 Hospital Encounter Chemo Therapy/Infusion Services 09/15/2022 Telemedicine Gastroenterology Eusebio Haines MD [address] [place] [address] documented as of this encounter Procedures Procedure Name Priority Date/Time Associated Diagnosis Comme nts GLUCOSE Routine 08/11/2011 1:41 PM Well female exam with Results for this B AND B GANG WORKER routine gynecological proced ure are in exam the results section. THYROID STIMULATING Routine 08/11/2011 1:41 PM Well female exa m with Results for this HORMONE B AND B GANG WORKER routine gynecological proced ure are in exam the results section. LIPID PANEL AND Routine 08/11/2011 1:41 PM Well female exam wi th Results for this DIRECT LDL(IF B AND B GANG WORKER routine gynecological proce dure are in NEEDED) exam the results section. CREATININE / GFR Routine 08/11/2011 1:41 PM Well female exam w ith Results for this B AND B GANG WORKER routine gynecological proced ure are in exam the results section. HEMOGLOBIN, BLOOD Routine 08/11/2011 1:41 PM Well female exam with Results for this B AND B GANG WORKER routine gynecological proced ure are in exam the results section. ELECTROLYTE PANEL Routine 08/11/2011 1:41 PM Well female exam with Results for this B AND B GANG WORKER routine gynecological proced ure are in exam the results section. documented in this encounter Results GLUCOSE (08/11/2011 1:41 PM B AND B GANG WORKER) athologist Signature Lab Glucose 85 60 - 100 HP CONVERSION mg/dL Specimen Anatomical Collection Method Collection Time Receive d Time (Source) Location / / Volume Laterality 08/11/2011 1:41 PM 2 1:41 B AND B GANG WORKER PM B AND B GANG WORKER Narrative HP CONVERSION - 08/11/2011 3:09 PM B AND B GANG WORKER Performed at [facility], [address] [place] [address] Dahiana Pulido PA-C LAB_1 Performing Organization Address City/[facility] Phon e Number HP CONVERSION Lipid Panel and Direct LDL(If Needed) (08/11/2011 1:41 PM B AND B GANG WORKER) [facility] gist Method Time Signature Cholesterol 178 [...] Volume Laterality 08/11/2011 1:41 PM 2 1:41 B AND B GANG WORKER PM B AND B GANG WORKER Narrative HP CONVERSION - 08/11/2011 3:09 PM B AND B GANG WORKER Performed at [facility], [address] [place] [address] Dahiana Pluido PA-C LAB_1 Performing Organization Address City/[facility] Phon e Number HP CONVERSION THYROID STIMULATING HORMONE (08/11/2011 1:41 PM B AND B GANG WORKER) athologist Signature Thyroid 1.75 0.20 - HP CONVERSION Stimulating 4.50 mIU/L Hormone Specimen Anatomical Collection Method Collection Time Receive d Time (Source) Location / / Volume Laterality 08/11/2011 1:41 PM 2 6:31 B AND B GANG WORKER PM B AND B GANG WORKER Dahiana Pulido PA-C LAB_1 Performing Organization Address City/[facility]/ZIP Code Phon e Number HP CONVERSION Creatinine / GFR (08/11/2011 1:41 PM B AND B GANG WORKER) athologist Signature Creatinine 0.7 0.4 - 1.3 [...] Volume Laterality 08/11/2011 1:41 PM 2 1:41 B AND B GANG WORKER PM B AND B GANG WORKER Narrative HP CONVERSION - 08/11/2011 3:09 PM B AND B GANG [place] [address] Dahiana Pulido PA-C LAB_1 Performing Organization Address [facility] Phon e Number HP CONVERSION Electrolyte Panel (08/11/2011 1:41 PM B AND B GANG WORKER) athologist Signature Sodium 139 137 - 147 HP CONVERSION mEq/L Potassium 3.7 3.5 - 5.2 HP CONVERSION mEq/L Chloride 108 98 - 110 HP CONVERSION mEq/L Bicarbonate 26 23 - 33 HP CONVERSION mmol/L Specimen Anatomical Collection Method Collection Time Receive d Time (Source) Location / / Volume Laterality 08/11/2011 1:41 PM 2 1:41 B AND B GANG WORKER PM B AND B GANG WORKER Narrative HP CONVERSION - 08/11/2011 3:09 PM B AND B GANG WORKER Performed at [facility], [address] [place] [address] Dahiana Pulido PA-C LAB_1 Performing Organization Address City/[facility]/ZIP [facility] Phon e Number HP CONVERSION Hemoglobin, Blood (08/11/2011 1:41 PM B AND B GANG WORKER) athologist Signature Hemoglobin 14.1 11.8 - 15.5 HP CONVERSION g/dL Specimen Anatomical Collection Method Collection Time Receive d Time (Source) Location / / Volume Laterality 08/11/2011 1:41 PM 2 1:41 B AND B GANG WORKER PM B AND B GANG WORKER Narrative HP CONVERSION - 08/11/2011 1:49 PM B AND B GANG WORKER Performed at [facility], [address] [place] [address] Dahiana Pulido PA-C LAB_1 Performing Organization Address City/State/ZIP Code Phon e Number HP CONVERSION documented in this encounter Visit Diagnoses Diagnosis Well female exam with routine gynecologi per exam Routine gynecological examination documented in this encounter Care Teams Quail Farmer Relationship Specialty Start Date End Date Munira Combs PA-C PCP - General 09/25/10 03/14/15 [address] [place] [address] documented as of this encounter
--- OUTSIDE RECORDS SUMMARY | 2022-05-09 19:30 | XMS_ITS | Encounter Summary ---
:1975 Author Organization [employer] Address [address], [place] [address] Care Team Providers Name Role Phone Sherie Baez PA-C Primary Care Provider Encounter Details Date Type Department Care Team Description 07/04/2010 Office Visit [facility] Sherie Falcon PA-C [address] [address] [place] [address] [phone] (Wo rk) Social History Tobacco Use Types Packs/Day Years Used Date Smoking Tobacco: Never Assessed Sex Assigned at Date Recorded Female 05/09/2021 7:19 PM GRAPHICS COORDINATOR documented as of this encounter Last Filed Vital Signs Vital Sign Reading Time Taken Comments Blood Pressure 138/84 07/04/2010 1:48 PM GRAPHICS COORDINATOR Pulse 80 07/04/2010 1:48 PM GRAPHICS COORDINATOR Temperature - - Respiratory Rate - - Oxygen Saturation - - Inhaled Oxygen Concentration - - Weight 90.5 kg (199 lb 9.3 oz) 07/04/2010 1:48 PM C: 90 .5kg GRAPHICS COORDINATOR Height 168.3 cm (5' 6.25) 07/04/2010 1:48 PM C: 168.3c m GRAPHICS COORDINATOR Body Mass Index 31.97 07/04/2010 1:48 PM GRAPHICS COORDINATOR documented in this encounter Progress Notes Sherie Baez PA-C - 07/04/2010 12:01 AM CST NAME: IGGY DUARTE MR#: [id number] DICTATING CLINICIAN: SHERIE BAEZ, [facility] PHYSICAL DATE OF VISIT: 07-04-2010 SUBJECTIVE: [...] HISTORY: 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 She drinks alcohol [...] Restart exercise. Tdap given with immun counseling. 07-04-2010 HICS COORDINATOR documented in this encounter Plan of Treatment Upcoming Encounters Date Type Specialty Care Team Description 05/12/2022 Hospital Encounter Chemo Therapy/Infusion Services 09/15/2022 Telemedicine Gastroenterology Eusebio Haines MD [address] [place] [address] documented as of this encounter Visit Diagnoses Not on filedocumented in this encounter Care Teams Lithographed Plate Inspector Relationship Specialty Start Date End Date Sherie Baez PA-C PCP - General 09/25/10 03/14/15 [address] [place], [place] [id number] documented as of this encounter
--- OUTSIDE RECORDS SUMMARY | 2022-05-09 19:30 | XMS_ITS | Encounter Summary ---
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
--- OUTSIDE RECORDS SUMMARY | 2022-05-09 19:30 | XMS_ITS | Encounter Summary ---
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 Labwork faxed over today. MIT Munira Combs PA-C - 01/12/2011 8:44 AM CDT Please ask her to go to lab for creat (401.9) since she is not current with that. I think she uses [facility] lab since she works there. No need [...] Services 09/15/2022 Telemedicine Gastroenterology Eusebio Haines MD [address] [place] [address] documented as of this encounter Visit Diagnoses Not on filedocumented in this encounter Care Teams Health Care Marketing Manager Relationship Specialty Start Date End Date Munira Combs PA-C PCP - General 09/25/10 03/14/15 [address] [place] [address] documented as of this encounter
--- OUTSIDE RECORDS SUMMARY | 2022-05-09 19:30 | XMS_ITS | Encounter Summary ---
:1975 Author Organization [facility] Address [address] [place] [address] Care Team Providers Name Role Phone Munira Combs PA-C Primary Care Provider Reason for Visit Reason Comments Refill Encounter Details Date Type Department Care Team Description 09/[facility]2011 [facility] [address] [place] [address] [place] [address] [phone] (Wo rk) Social History Tobacco Use Types Packs/Day Years Used Date Smoking Tobacco: Never Assessed Sex Assigned at Date Recorded Female 05/09/2021 7:19 PM CULTURIST documented as of this encounter Plan of Treatment Upcoming Encounters Date Type Specialty Care Team Description 05/12/2022 Hospital Encounter Chemo Therapy/Infusion Services 09/15/2022 Telemedicine Gastroenterology Eusebio Haines MD [address] [place] [address] documented as of this encounter Visit Diagnoses Not on filedocumented in this encounter Care Teams Director Of Market Analysis Relationship Specialty Start Date End Date Munira Combs PA-C PCP - General 09/25/10 03/14/15 [address] [place] [address] documented as of this encounter
--- OUTSIDE RECORDS SUMMARY | 2022-05-09 19:30 | XMS_ITS | Encounter Summary ---
:1975 Author Organization [facility] Address [address] [place] [address] Care Team Providers Name Role Phone Munira Combs PA-C Primary Care Provider Reason for Visit Reason Comments Refill Encounter Details Date Type Department Care Team Description 04/20/2011 Refill [facility] Munira Falcon PA-C Refill [address] [place] [address] [place] [address] [phone] (Wo rk) Social History Tobacco Use Types Packs/Day Years Used Date Smoking Tobacco: Never Assessed Sex Assigned at Date Recorded Female 05/09/2021 7:19 PM PATTERNMAKER PLASTICS documented as of this encounter Plan of Treatment Upcoming Encounters Date Type Specialty Care Team Description 05/12/2022 Hospital Encounter Chemo Therapy/Infusion Services 09/15/2022 Telemedicine Gastroenterology Eusebio Haines MD [address] [place] [address] documented as of this encounter Visit Diagnoses Not on filedocumented in this encounter Care Teams Environmental Permitting Specialist Relationship Specialty Start Date End Date Munira Combs PA-C PCP - General 09/25/10 03/14/15 [address] [place] [address] documented as of this encounter
--- OUTSIDE RECORDS SUMMARY | 2022-05-09 19:30 | XMS_ITS | Encounter Summary ---
:1975 Author Organization [employer] Address [address] [address] Care Team Providers Name Role Phone Munira Combs PA-C Primary Care Provider Reason for Visit Reason Comments Refill Encounter Details Date Type Department Care Team Description 08/02/2011 Refill [facility] Munira Falcon PA-C Refill [address] [place] [address] [place] [address] (Wo rk) Social History Tobacco Use Types Packs/Day Years Used Date Smoking Tobacco: Never Assessed Sex Assigned at Date Recorded Female 05/09/2021 7:19 PM BARREL INSPECTOR TIGHT documented as of this encounter Nursing Notes Madalyn Orta LPN - 08/03/2011 1:56 PM CST Left VM indicating rx has been sent to pharmacy. Requested pt. schedule med check soon. EL INSPECTOR TIGHT Munira Combs PA-C - 08/03/2011 12:06 PM CST Rx sent. needs med check. EL INSPECTOR TIGHT Adri Barragan MA - 08/02/2011 1:52 PM BARREL INSPECTOR TIGHT From: IGGY DUARTE To: Munira Combs PA-C Sent: SunAug 02, 2011 1:34 PM Subject: Medication Renewal Request Original authorizing provider: MAVIS Palacio would like a refill of the following medications: dicyclomine (BENTYL) 20 mg tablet [Munira Combs PA-C] Preferred pharmacy: [facility] Comment: documented in this encounter Miscellaneous Notes Refill (Converted) - Mychart, Generic Provider - 08/02/2011 1:34 PM BARREL INSPECTOR TIGHT Medication Renewal Request From User: Original authorizing provider: MAVIS Palacio would like a refill of the following medications: dicyclomine (BENTYL) 20 mg tablet [Munira Combs PA-C] Preferred pharmacy: [facility] Comment: EL INSPECTOR TIGHT documented in this encounter Plan of Treatment Upcoming Encounters Date Type Specialty Care Team Description 05/12/2022 Hospital Encounter Chemo Therapy/Infusion Services 09/15/2022 Telemedicine Gastroenterology Eusebio Haines MD [address] [place] [address] documented as of this encounter Visit Diagnoses Diagnosis Irritable bowel syndrome - Primary documented in this encounter Care Teams Scuba Diving Teacher Relationship Specialty Start Date End Date Munira Combs PA-C PCP - General 09/25/10 03/14/15 [address] [place] [address] documented as of this encounter
--- OUTSIDE RECORDS SUMMARY | 2022-05-09 19:30 | XMS_ITS | Encounter Summary ---
:1975 Author Organization [facility] Address [address] [place] [address] Care Team Providers Name Role Phone Munira Combs PA-C Primary Care Provider Encounter Details Date Type Department Care Team Description 01/13/2011 Notes/Orders [facility] Munira Combs, Unspecif ied essential Medicine MAVIS hypertension (Primary [address] [facility] [address] [facility] [place] [address] [facility] [phone] [place], [place] [id number] Social History Tobacco Use Types Packs/Day Years Used Date Smoking Tobacco: Never Assessed Sex Assigned at Date Recorded Female 05/09/2021 7:19 PM RETURNED GOODS 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 documented as of this encounter Plan of Treatment Upcoming Encounters Date Type Specialty Care Team Description 05/12/2022 Hospital Encounter Chemo Therapy/Infusion Services 09/15/2022 Telemedicine Gastroenterology Eusebio Haines MD [address] [place], [place] [address] documented as of this encounter Visit Diagnoses Diagnosis Unspecified essential hypertension (HRC) - Primary Unspecified essential hypertension documented in this encounter Care Teams Aging Room Hand Relationship Specialty Start Date End Date Munira Combs PA-C PCP - General 09/25/10 03/14/15 [address] [place] [address] documented as of this encounter
--- OUTSIDE RECORDS SUMMARY | 2022-05-09 19:30 | XMS_ITS | Encounter Summary ---
:1975 Author Organization [employer] Address [address] [place] [address] Care Team Providers Name Role Phone Munira Combs PA-C Primary Care Provider Encounter Details Date Type Department Care Team Description 09/05/2010 Office Visit [facility] [place] [address] [place] [address] [place] [address] [phone] (Wo rk) Social History Tobacco Use Types Packs/Day Years Used Date Smoking Tobacco: Never Assessed Sex Assigned at Date Recorded Female 05/09/2021 7:19 PM DRY CHAIN PULLER documented as of this encounter Progress Notes Rufina Morris MD - 09/05/2010 12:01 AM CDT NAME: IGGY DUARTE MR#: [id number] ACCT: [id number] VISIT: [id number] DICTATING CLINICIAN: Rufina Morris MD CONFIRM #: [id number] LOC: 527 CLINIC PROGRESS NOTE DATE OF [...] notes worrisome change. MMB:MEDQ C: CONFIRM #: [id number] documented in this encounter Plan of Treatment Upcoming Encounters Date Type Specialty Care Team Description 05/12/2022 Hospital Encounter Chemo Therapy/Infusion Services 09/15/2022 Telemedicine Gastroenterology Eusebio Haines MD [address] [place] [address] documented as of this encounter Visit Diagnoses Not on filedocumented in this encounter Care Teams Cpht Relationship Specialty Start Date End Date Munira Combs PA-C PCP - General 09/25/10 03/14/15 [address] [place], [place] [address] documented as of this encounter
--- OUTSIDE RECORDS SUMMARY | 2022-05-09 19:30 | XMS_ITS | Encounter Summary ---
:1975 Author Organization [employer] 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 Comment:- Pharmacy Seq #:-print to [facility] Name-Phone/Fax:-[facility] Street or City:- [place] Clinician Name:-A Strong Drug Name/Strength:-HCTZ 25mg Sig: [...] 03/15/10 *ECODE~PNRF3 Created on 11May2010 4:07pm by ACTIE AVILEZ On 13May2010 8:58pm OMEGA NORWOOD wrote: [...] appt. Acknowledged by SHERIE BAEZ on 10:55am DD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 Plan of Treatment Upcoming Encounters Date Type Specialty Care Team Description 05/12/2022 Hospital Encounter Chemo Therapy/Infusion Services 09/15/2022 Telemedicine Gastroenterology Eusebio Haines MD [address] [place], [place] [address] documented as of this encounter Visit Diagnoses Not on filedocumented in this encounter Care Teams Monument Setter Relationship Specialty Start Date End Date Sherie Baez PAZitaC PCP - General 09/25/10 03/14/15 [address] [place] [place] [address] documented as of this encounter
--- OUTSIDE RECORDS SUMMARY | 2022-05-09 19:30 | XMS_ITS | Encounter Summary ---
:1975 Author Organization [employer] Address [address] [place] [address] Care Team Providers Name Role Phone Sherie Baez PA-C Primary Care Provider Reason for Visit Reason Comments Other Encounter Details Date Type Department Care Team Description 07/18/2010 Telephone [facility] Sherie Falcon PA-C Other [address] [address] [facility] [address] [place] [address] [place] [address] (Wo rk) Social History Tobacco Use Types Packs/Day Years Used Date Smoking Tobacco: Never Assessed Sex Assigned at Date Recorded Female 05/09/2021 7:19 PM SUPERVISOR CURED MEATS documented as of this encounter Progress Notes [...] [facility] Name-Phone/Fax #: [facility] [phone]/City:[place] Clinician Name:Chrissy Baez *ECODE~PNRXQ Created on 18Jul2010 1:56pm by CATIE AVILEZ On 18Jul2010 2:04pm SHERIE BAEZ wrote: rx sent. Acknowledged by SHERIE BAEZ on 2:04pm RVISOR CURED MEATS documented in this encounter Plan of Treatment Upcoming Encounters Date Type Specialty Care Team Description 05/12/2022 Hospital Encounter Chemo Therapy/Infusion Services 09/15/2022 Telemedicine Gastroenterology Eusebio Haines MD [address] [place] [address] documented as of this encounter Visit Diagnoses Not on filedocumented in this encounter Care Teams Print Binding Worker Relationship Specialty Start Date End Date Sherie Baez PA-C PCP - General 09/25/10 03/14/15 [address] [place], [place] [address] documented as of this encounter
--- OUTSIDE RECORDS SUMMARY | 2022-05-09 19:31 | XMS_ITS | Encounter Summary ---
:1975 Author Organization [employer] Address [address] [place] [address] Care Team Providers Name Role Phone Munria Combs PA-C Primary Care Provider Encounter Details Date Type Department Care Team Description 07/22/2008 PN Conversion Only SCIENTOLOGIST CONVERSION Deepti Mott MD, PhD [address] [place] [address] (Wo rk) Social History Tobacco Use Types Packs/Day Years Used Date Smoking Tobacco: Never Assessed Sex Assigned at Date Recorded Female 05/09/2021 7:19 PM GAS TORCH BRAZIER documented as of this encounter Plan of Treatment Upcoming Encounters Date Type Specialty Care Team Description 05/12/2022 Hospital Encounter Chemo Therapy/Infusion Services 09/15/2022 Telemedicine Gastroenterology Eusebio Haines MD [address] [place] [address] documented as of this encounter Procedures Procedure Name Priority Date/Time Associated Diagnosis Comme nts DERM PATH-DPF Routine 07/22/2008 1:11 PM Results for this GAS TORCH BRAZIER procedure are i n the results section. DERM PATH CONSULT 1 Routine 07/22/2008 1:11 PM Re sults for this GAS TORCH BRAZIER procedure are i n the results section. documented in this encounter Results Derm Path-Dpf (07/22/2008 1:11 PM GAS TORCH BRAZIER) [facility] gist Method Time Signature Dermatopathology SEE TEXT No normal HP CONVERSION Final Report range Comment: Patient: IGGY DUARTE ?D ERMATOPATHOLOGY Pathology # [id number] ?Date Obtained: ? Date Received: DIAGNOSIS: ?Mid abdomen: Specimen forwarded to [facility] for ?microscopic examination and diagno sis. ??See learning and development consultant's report. ?Gali Tee MD ?(electronic signature) DSE/DSE/bench chemist Date of Report: 07/28/08 CLINICAL DIAGNOSIS: ?Severely atypical compound melanoc ytic lesion ORGAN/TISSUE SITE: ?Mid abdomen GROSS DESCRIPTION: ?Received is a 2.8 x 1.4 x 0.6 cm s kin ellipse. Serially sectioned and ?submitted 1 (both tips) through 4. ?([facility] [place] DSE/bench chemist MICROSCOPIC DESCRIPTION: ?Spec[facility] for microscopic ?examination and diagnosis. ??See c roberto carlos's report. Specimen (Source) Anatomical Collection Method Collection Time Re ceived Time Location / / Volume Laterality 07/22/2008 1:11 PM GAS TORCH BRAZIER Barby Mott MD, PhD LAB_1 Performing Organization Address City/State/ZIP Code Phon e Number HP CONVERSION Derm Path Consult 1 (07/22/2008 1:11 PM GAS TORCH BRAZIER) [facility] gist Method Time Signature Derm Path SEE TEXT No normal HP CONVERSION Consult 1 range Comment: Patient: IGGY DUARTE ? SURGICAL PATHOLOGY SUPPLEMENTAL REPORT Pathology # [id number] ?Date Obtained: ? Date Received: CONSULTATION: DOCTOR: ?Ian Baez M.D. INSTITUTION: [facility] ; ??[facility] THEIR #: ? [id number] DIAGNOSIS: ?Skin, mid abdomen: Surgical cicatr ix (Scar); no residual neoplasm. cs ?This report is not the original or complete report and it has not been ?reviewed by [facility]. Specimen (Source) Anatomical Collection Method Collection Time Re ceived Time Location / / Volume Laterality 07/22/2008 1:11 PM GAS TORCH BRAZIER Barby Mott MD, PhD LAB_1 Performing Organization Address City/State/ZIP Code Phon e Number HP CONVERSION documented in this encounter Visit Diagnoses Not on filedocumented in this encounter Care Teams Nutritional Services Host Relationship Specialty Start Date End Date Munira Combs PA-C PCP - General 09/25/10 03/14/15 [address] [place] [address] documented as of this encounter
--- OUTSIDE RECORDS SUMMARY | 2022-05-09 19:31 | XMS_ITS | Encounter Summary ---
:1975 Author Organization [facility] Address [address] [place] [address] Care Team Providers Name Role Phone Munira Combs PA-C Primary Care Provider Reason for Visit Reason Comments Other Encounter Details Date Type Department Care Team Description 07/29/2008 Telephone [facility] [address] Emeterio Evans MD, PhD Other Dermatology [address] [place] [address] [place], [place] [address] [phone] Social History Tobacco Use Types Packs/Day Years Used Date Smoking Tobacco: Never Assessed Sex Assigned at Date Recorded Female 05/09/2021 7:19 PM PSYCHOLOGICAL TESTS SALES AGENT documented as of this encounter Progress Notes Elpidio Nick RN - 07/29/2008 3:22 PM CST Phone Note filed by Elpidio Nick RN at 10/13/10 8893 Author: Elpidio Nick RN Service: (none) Author Type: (none) Filed: 10/13/10 4093 Note Time: 07/29/08 1522 Status: Signed Pathologist Assistant: Tam Conversion MESSAGE TO CARE TEAM NAME OF CALLER:Idania NAME OF CLINICIAN: MESSAGE:Noted that results were back on ALEN. Requesting a call to discuss. CALL BACK PHONE OR CELL PHONE:[phone] BEST TIME TO CALL BACK:today please IS IT OK TO LEAVE A CONFIDENTIAL MESSAGE ON THIS VOICEMAIL? *ECODE~PNMSG Created on 29Jul2008 3:22pm by ELPIDIO NICK On 29Jul2008 5:12pm EMETERIO EVANS wrote: Margins clear, will update patient. Acknowledged by EMETERIO EVANS on 5:12pm HOLOGICAL TESTS SALES AGENT documented in this encounter Plan of Treatment Upcoming Encounters Date Type Specialty Care Team Description 05/12/2022 Hospital Encounter Chemo Therapy/Infusion Services 09/15/2022 Telemedicine Gastroenterology Eusebio Haines MD [address] [place] [address] documented as of this encounter Visit Diagnoses Not on filedocumented in this encounter Care Teams Emergency Department Manager Relationship Specialty Start Date End Date Munira Combs PA-C PCP - General 09/25/10 03/14/15 [address] [place] [address] documented as of this encounter
--- OUTSIDE RECORDS SUMMARY | 2022-05-09 19:31 | XMS_ITS | Encounter Summary ---
:1975 Author Organization [facility] Address [address] [place] [address] Care Team Providers Name Role Phone Munira Combs PA-C Primary Care Provider Encounter Details Date Type Department Care Team Description 10/27/2008 Office Visit [facility] [place] [address] [place] [address] [place] [address] [phone] (Wo rk) Social History Tobacco Use Types Packs/Day Years Used Date Smoking Tobacco: Never Assessed Sex Assigned at Date Recorded Female 05/09/2021 7:19 PM CLOTH EXAMINER documented as of this encounter Progress Notes Rufina Parker MD - 10/27/2008 12:01 AM CDT Progress Notes signed by Rufina Parker MD at 11/11/08 1648 Author: Rufina Parker MD Service: (none) Author Type: Physician Filed: 10/15/10 1251 Note Time: 10/27/08 0001 Status: Signed Cis Coordinator: Rufina Parker MD (Physician) NAME: IGGY DUARTE MR#: [id number] ACCT: [id number] VISIT: [id number] DICTATING CLINICIAN: RUFINA PARKER MD CONFIRM #: [id number] LOC: 527 CLINIC PROGRESS NOTE DATE OF VISIT: 10/27/2008 SUBJECTIVE: : 1975. Ndogme-eor-llhf-old woman comes in for evaluation of her skin. She has a history of recent superficial basal cell on the left thigh treated by CARRIE and C by Dr. Mott. Also had an [...] use, sun avoidance discussed. PLAN: See Assessment. MMB:[id number] C: 10/28/08 14:50 CONFIRM #: [id number] documented in this encounter Plan of Treatment Upcoming Encounters Date Type Specialty Care Team Description 05/12/2022 Hospital Encounter Chemo Therapy/Infusion Services 09/15/2022 Telemedicine Gastroenterology Eusebio Haines MD [address] [place] [address] documented as of this encounter Visit Diagnoses Not on filedocumented in this encounter Care Teams Disc Pad Plate Filler Relationship Specialty Start Date End Date Munira Combs PA-C PCP - General 09/25/10 03/14/15 [address] [place], [place] [address] documented as of this encounter
--- OUTSIDE RECORDS SUMMARY | 2022-05-09 19:31 | XMS_ITS | Encounter Summary ---
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 [id number] C: 05/25/09 18:08 CONFIRM #: [id number] TRUCTION CRAFT LABORER documented in this encounter Plan of Treatment Upcoming Encounters Date Type Specialty Care Team Description 05/12/2022 Hospital Encounter Chemo Therapy/Infusion Services 09/15/2022 Telemedicine Gastroenterology Eusebio Haines MD [address] [place], [place] [address] documented as of this encounter Visit Diagnoses Not on filedocumented in this encounter Care Teams Sales Operations Coordinator Relationship Specialty Start Date End Date Munira Combs PA-C PCP - General 09/25/10 03/14/15 [address] [place] [address] documented as of this encounter
--- OUTSIDE RECORDS SUMMARY | 2022-05-09 19:31 | XMS_ITS | Encounter Summary ---
:1975 Author Organization [employer] Address [address], [place] [address] Care Team Providers Name Role Phone Munira Combs PA-C Primary Care Provider Encounter Details Date Type Department Care Team Description 03/13/2008 Office Visit [facility] 39[address] Michelle Liao MD Neurology [address] [place], [place] [address] Social History Tobacco Use Types Packs/Day Years Used Date Smoking Tobacco: Never Assessed Sex Assigned at Date Recorded Female 05/09/2021 7:19 PM EYELET MACHINE OPERATOR documented as of this encounter [...] 0655 Note Time: 03/13/08 0001 Status: Signed Marketing Research Intern: Michelle Liao MD (Physician) NAME: IGGY DUARTE MR#: [id number] ACCT: [id number] VISIT: [id number] DICTATING CLINICIAN: MICHELLE LIAO MD CONFIRM #: [id number] LOC: 223 CLINIC PROGRESS NOTE DATE OF [...] know father's because of early divorce. 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 Quit tobacco 3 [...] findings. Return visit p.r.n. CC: Dr. Schwartz [id number] C: 03/13/08 09:35 CONFIRM #: [id number] documented in this encounter Plan of Treatment Upcoming Encounters Date Type Specialty Care Team Description 05/12/2022 Hospital Encounter Chemo Therapy/Infusion Services 09/15/2022 Telemedicine Gastroenterology Eusebio Haines MD [address] [place], [place] [address] documented as of this encounter Visit Diagnoses Not on filedocumented in this encounter Care Teams Washer Blanket Relationship Specialty Start Date End Date Munira Combs PA-C PCP - General 09/25/10 03/14/15 [address] [place] [address] documented as of this encounter
--- OUTSIDE RECORDS SUMMARY | 2022-05-09 19:31 | XMS_ITS | Encounter Summary ---
:1975 Author Organization [facility] Address [address], [place] [address] Care Team Providers Name Role Phone Munira Combs PA-C Primary Care Provider Reason for Visit Reason Comments Other Encounter Details Date Type Department Care Team Description 09/09/2009 Telephone [facility], Message Other [address] [place] [address] Social History Tobacco Use Types Packs/Day Years Used Date Smoking Tobacco: Never Assessed Sex Assigned at Date Recorded Female 05/09/2021 7:19 PM ELECTRICAL CONTRACTOR documented as of this encounter Progress Notes Center, Message - 09/09/2009 2:55 PM CDT Phone Note filed by [employer] at 10/15/10256 Author: [employer] Service: (none) Author Type: (none) Filed: 10/15/10256 Note Time: 09/09/09 5549 Status: Signed Brake Repairer: [employer] (Resource) PRESCRIPTION REFILL Please provide enough refills to last until patient's next visit. Comment:- Pharmacy Seq #:-print to [facility] Pharmacy Name-Phone/Fax:-[facility] Pharmacy Street or City:-[place] Clinician Name:-Chrissy Strong Drug Name/Strength:-HCTZ 25MG tab Sig: Dose/Route/Freq:-take one tab daily Quantity & Last Fill:-30 08/18/09 *ECODE~PNRF Created on 09Sep2009 2:55pm by CATIE AVILEZ On 10Sep2009 4:22pm SMITH NORTH wrote: REFILL APPOINTMENT NEEDED Please call patient and schedule appointment within 30 days. Medication has been renewed and faxed to pharmacy for 30 day supply only, per protocol. Comment:-follow up appt due (HCTZ med) On 13Sep2009 9:05am JUAN M TORRES wrote: left vm TRICAL CONTRACTOR documented in this encounter Plan of Treatment Upcoming Encounters Date Type Specialty Care Team Description 05/12/2022 Hospital Encounter Chemo Therapy/Infusion Services 09/15/2022 Telemedicine Gastroenterology Eusebio Haines MD [address] [place] [address] documented as of this encounter Visit Diagnoses Not on filedocumented in this encounter Care Teams Insurance Underwriting Assistant Relationship Specialty Start Date End Date Munira Combs PA-C PCP - General 09/25/10 03/14/15 [address] [place], [place] [id number] documented as of this encounter
--- OUTSIDE RECORDS SUMMARY | 2022-05-09 19:31 | XMS_ITS | Encounter Summary ---
:1975 Author Organization [employer] Address [address] [place] [address] Care Team Providers Name Role Phone Munira Combs PA-C Primary Care Provider Encounter Details Date Type Department Care Team Description 10/27/2008 PN Conversion Only [facility] Rufina Kinsey, [address] [place] [address] [place] [phone] [place], [place] [address] (Wo rk) Social History Tobacco Use Types Packs/Day Years Used Date Smoking Tobacco: Never Assessed Sex Assigned at Date Recorded Female 05/09/2021 7:19 PM TURNING MACHINE OPERATOR documented as of this encounter Plan of Treatment Upcoming Encounters Date Type Specialty Care Team Description 05/12/2022 Hospital Encounter Chemo Therapy/Infusion Services 09/15/2022 Telemedicine Gastroenterology Eusebio Haines MD [address] [place] [address] documented as of this encounter Visit Diagnoses Not on filedocumented in this encounter Care Teams Ironworker Machine Operator Relationship Specialty Start Date End Date Munira Combs PA-C PCP - General 09/25/10 03/14/15 [address] [place], [place] [phone] documented as of this encounter
--- OUTSIDE RECORDS SUMMARY | 2022-05-09 19:31 | XMS_ITS | Encounter Summary ---
:1975 Author Organization [employer] Address [address] [place] [address] Care Team Providers Name Role Phone Munira Combs PA-C Primary Care Provider Encounter Details Date Type Department Care Team Description 11/09/2008 Esthetician And Manager Medical Spa Only [facility] [address] Deepti Morris, Dermatology [address] Katie Beasley [facility] [address] [place] [id number] [phone] Social History Tobacco Use Types Packs/Day Years Used Date Smoking Tobacco: Never Assessed Sex Assigned at Date Recorded Female 05/09/2021 7:19 PM ACTOR UNDERSTUDY documented as of this encounter Progress Notes Rufina Morris MD - 11/09/2008 12:01 AM CDT Progress Notes signed by Rufina Morris MD at 11/09/08 1113 Author: Rufina Morris MD Service: (none) Author Type: Physician Filed: 10/15/10 1310 Note Time: 11/09/08 0001 Status: Signed Rehab Consultant: Rufina Morris MD (Physician) Patient informed of [...] Services 09/15/2022 Telemedicine Gastroenterology Eusebio Haines MD [address] [place] [address] documented as of this encounter Visit Diagnoses Not on filedocumented in this encounter Care Teams Flat Folding Machine Operator Relationship Specialty Start Date End Date Munira Combs PA-C PCP - General 09/25/10 03/14/15 [address] [place], [place] [id number] documented as of this encounter
--- OUTSIDE RECORDS SUMMARY | 2022-05-09 19:31 | XMS_ITS | Encounter Summary ---
:1975 Author Organization [facility] Address [address] [place] [address] Care Team Providers Name Role Phone Munira Combs PA-C Primary Care Provider Encounter Details Date Type Department Care Team Description 07/21/2008 Equine Internship Only [facility] [address] Kater[address] Britton, Dermatology RUDY, [place] [address] Katie Beasley [facility] [address] [place] [phone] (Wo rk) Social History Tobacco Use Types Packs/Day Years Used Date Smoking Tobacco: Never Assessed Sex Assigned at Date Recorded Female 05/09/2021 7:19 PM DAIRY EQUIPMENT REPAIRER documented as of this encounter Progress Notes Katerina Britton, RUDY, SIERRA - 07/21/2008 12:01 AM CST Progress Notes signed by ALFONSO Thompson at 07/21/08 1039 Author: ALFONSO Thompson Service: (none) Author Type: Nurse Practitioner Filed: 10/15/10 1007 Note Time: 07/21/08 0001 Status: Signed Engrosser: ALFONSO Thompson (Nurse Practitioner) Patient notified that lesion on abd. shows severe dysplastic mole and re-excision with 5 mm margins is recommended. 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 I have arranged a surgical consultation with on 07/22. She is to STOP tanning. She is to return to mt for full body exam in 8 weeks. Y EQUIPMENT REPAIRER documented in this encounter Plan of Treatment Upcoming Encounters Date Type Specialty Care Team Description 05/12/2022 Hospital Encounter Chemo Therapy/Infusion Services 09/15/2022 Telemedicine Gastroenterology Eusebio Haines MD [address] [place], [place] [address] documented as of this encounter Visit Diagnoses Not on filedocumented in this encounter Care Teams Distribution Operations Supervisor Relationship Specialty Start Date End Date Munira Combs PA-C PCP - General 09/25/10 03/14/15 [address] [place], [place] [phone] documented as of this encounter
--- OUTSIDE RECORDS SUMMARY | 2022-05-09 19:31 | XMS_ITS | Encounter Summary ---
:1975 Author Organization [facility] Address [address] [place] [address] Care Team Providers Name Role Phone Munira Combs PA-C Primary Care Provider Encounter Details Date Type Department Care Team Description 05/25/2009 Office Visit [facility] Munira Falcon PA-C [address] [address] [place] [address] [phone] (Wo rk) Social History Tobacco Use Types Packs/Day Years Used Date Smoking Tobacco: Never Assessed Sex Assigned at Date Recorded Female 05/09/2021 7:19 PM TEACHERS ASSISTANT documented as of this encounter Progress Notes Munira Combs PA-C - 05/25/2009 12:01 AM CST H&P signed by Munira Combs PA-C at 05/25/09 1216 Author: Munira Combs PA-C Service: (none) Author Type: Physician Dining Room Attendant Filed: 10/15/10 1818 Note Time: 05/25/09 0001 Status: Signed Humanities Division Chair: Munira Combs PA-C (Resource) NAME: IGGY DUARTE MR#: [id number] DICTATING CLINICIAN: [facility] PHYSICAL DATE [...] HISTORY: 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 She [...] ABDOMEN: Soft, nontender. : External genitalia normal. [place] rugated vagina. Nulliparous cervix without lesions. No [...] with lytes in 2 weeks. Continue exercise. HERS ASSISTANT documented in this encounter Plan of Treatment Upcoming Encounters Date Type Specialty Care Team Description 05/12/2022 Hospital Encounter Chemo Therapy/Infusion Services 09/15/2022 Telemedicine Gastroenterology Eusebio Haines MD [address] [place] [address] documented as of this encounter Visit Diagnoses Not on filedocumented in this encounter Care Teams Roll Wrapper Relationship Specialty Start Date End Date Munira Combs PA-C PCP - General 09/25/10 03/14/15 [address] [place] [address] documented as of this encounter
--- OUTSIDE RECORDS SUMMARY | 2022-05-09 19:31 | XMS_ITS | Encounter Summary ---
:1975 Author Organization [employer] Address [address], [place] [address] Care Team Providers Name Role Phone Munira Combs PA-C Primary Care Provider Encounter Details Date Type Department Care Team Description 05/07/2008 Office Visit [facility] Munira Falcon PA-C [address] [address] [place] [address] [phone] (Wo rk) Social History Tobacco Use Types Packs/Day Years Used Date Smoking Tobacco: Never Assessed Sex Assigned at Date Recorded Female 05/09/2021 7:19 PM BARREL TESTER AND DRAINER documented as of this encounter Last Filed Vital Signs Vital Sign Reading Time Taken Comments Blood Pressure 138/74 05/07/2008 2:37 PM BARREL TESTER AND DRAINER Pulse 92 05/07/2008 2:37 PM BARREL TESTER AND DRAINER Temperature - - Respiratory Rate - - Oxygen Saturation - - Inhaled Oxygen Concentration - - Weight 91.2 kg (200 lb 15.9 oz) 05/07/2008 2:37 PM C: 9 1.2kg BARREL TESTER AND DRAINER Height 167 cm (5' 5.75) 05/07/2008 2:37 PM C: 167.0cm BARREL TESTER AND DRAINER Body Mass Index 32.69 05/07/2008 2:37 PM BARREL TESTER AND DRAINER documented in this encounter Progress Notes Munira Combs PA-C - 05/07/2008 12:01 AM CST H&P signed by Munira Combs PA-C at 05/12/08 1131 Author: Munira Combs PA-C Service: (none) Author Type: Physician Fryer Operator Filed: 10/15/10 0821 Note Time: 05/07/08 0001 Status: Signed Photographic Developer And Printer: Munira Combs PA-C (Physician Fryer Operator) NAME: IGGY DUARTE MR#: [id number] ACCT: [id number] VISIT: [id number] DICTATING CLINICIAN: SHAKA HELM CONFIRM #: [id number] LOC: 502 CLINIC PHYSICAL DATE OF VISIT: [...] SOCIAL HISTORY: 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 : External genitalia normal. [place] rugated vagina. Nulliparous cervix without lesions. No [...] and premature aging. Pap smear obtained today. AMS:[id number] C: 05/07/08 19:05 CONFIRM #: [id number] EL TESTER AND DRAINER documented in this encounter Plan of Treatment Upcoming Encounters Date Type Specialty Care Team Description 05/12/2022 Hospital Encounter Chemo Therapy/Infusion Services 09/15/2022 Telemedicine Gastroenterology Eusebio Haines MD [address] [place] [address] documented as of this encounter Visit Diagnoses Not on filedocumented in this encounter Care Teams Inside Trucker Relationship Specialty Start Date End Date Munira Combs PA-C PCP - General 09/25/10 03/14/15 [address] [place] [address] documented as of this encounter
--- OUTSIDE RECORDS SUMMARY | 2022-05-09 19:31 | XMS_ITS | Encounter Summary ---
:1975 Author [facility] Address [address] [place] [address] Care Team Providers Name Role Phone Sherie Baez PA-C Primary Care Provider Reason for Visit Reason Comments Other Encounter Details Date Type Department Care Team Description 01/03/2010 Telephone [facility] Sherie Falcon PA-C Other [address] [address] [place] [address] (Wo rk) Social History Tobacco Use Types Packs/Day Years Used Date Smoking Tobacco: Never Assessed Sex Assigned at Date Recorded Female 05/09/2021 7:19 PM V BELT MOLD ASSEMBLER AND CURER documented as of this encounter Progress Notes Center, Message - 01/03/2010 9:01 AM CDT Phone Note filed by Braclet at 10/15/10 6566 Author: Braclet Service: (none) Author Type: (none) Filed: 10/15/10 1231 Note Time: 01/03/10900 Status: Signed Hardwood Floor Installer: Braclet (Resource) PRESCRIPTION REFILL Please provide enough refills to last until patient's next visit. Comment:- Pharmacy Seq #:-[facility] to [facility] Pharmacy Name-Phone/Fax:-[phone] or City:-[place] Clinician Name:-[facility] [...] visit for BP check. (She works at [employer], she could have it done there. I want to see what her BP is now that she is on HCTZ). Acknowledged by SHERIE BAEZ on 9:09am On 03Jan2010 9:39am LENNY SANON wrote: Pt notifed, will have bp checked at [facility] and have nurse send results to Sherie Louise. Acknowledged by LENNY SANON on 9:39am Acknowledged by SHERIE BAEZ on 9:57am V BELT MOLD ASSEMBLER AND CURER documented in this encounter Plan of Treatment Upcoming Encounters Date Type Specialty Care Team Description 05/12/2022 Hospital Encounter Chemo Therapy/Infusion Services 09/15/2022 Telemedicine Gastroenterology Eusebio Haines MD [address] [place] [address] documented as of this encounter Visit Diagnoses Not on filedocumented in this encounter Care Teams Mechanical And Auto Body Car Checker Relationship Specialty Start Date End Date Sherie Baez PAZitaC PCP - General 09/25/10 03/14/15 [address] [place], [place] [phone] documented as of this encounter
--- OUTSIDE RECORDS SUMMARY | 2022-05-09 19:31 | XMS_ITS | Encounter Summary ---
:1975 Author Organization [employer] Address [address] [place] [address] Care Team Providers Name Role Phone Sherie Baez PA-C Primary Care Provider Reason for Visit Reason Comments Other Encounter Details Date Type Department Care Team Description 08/18/[address] [facility], Message Other [address] [place] [address] Social History Tobacco Use Types Packs/Day Years Used Date Smoking Tobacco: Never Assessed Sex Assigned at Date Recorded Female 05/09/2021 7:19 PM EXTRUSION DIE REPAIR MANAGER documented as of this encounter Progress Notes Em Muro - 08/18/2009 3:57 PM CST Phone Note filed by Em Muro RN at 10/15/10104 Author: Em Muro RN Service: (none) Author Type: Registered Nurse Filed: 10/15/10104 Note Time: 08/18/091556 Status: Signed Global Professional: Em Muro RN (Registered Nurse) This is a PATIENT ONLINE (ALEN) message. Patient prefers a response in ALEN:you had asked me to do another blood test. can you send the paper work to the [facility] please, [email or web address] Created on 18Aug2009 3:57pm by EM MURO On 19Aug2009 8:07am SHERIE BAEZ wrote: Na for hyponatremia. Acknowledged by SHERIE BAEZ on 8:07am On 19Aug2009 9:59am GUILLERMO SIMON wrote: ALEN message sent to patient. Acknowledged by GUILLERMO SIMON on 9:59am USION DIE REPAIR MANAGER documented in this encounter Plan of Treatment Upcoming Encounters Date Type Specialty Care Team Description 05/12/2022 Hospital Encounter Chemo Therapy/Infusion Services 09/15/2022 Telemedicine Gastroenterology Eusebio Haines MD [address] [place], [place] [address] documented as of this encounter Visit Diagnoses Not on filedocumented in this encounter Care Teams Digester Capper Relationship Specialty Start Date End Date Sherie Baez PA-C PCP - General 09/25/10 03/14/15 [address] [place], [place] [phone] documented as of this encounter
--- OUTSIDE RECORDS SUMMARY | 2022-05-09 19:31 | XMS_ITS | Encounter Summary ---
:1975 Author Organization [employer] Address [address], [place] [address] Care Team Providers Name Role Phone Munira Combs PA-C Primary Care Provider Encounter Details Date Type Department Care Team Description 05/25/2009 PN Conversion Only [facility] Munira Rodney PA-C [id number] [place] [address] (Wo rk) Social History Tobacco Use Types Packs/Day Years Used Date Smoking Tobacco: Never Assessed Sex Assigned at Date Recorded Female 05/09/2021 7:19 PM IRRIGATION LABORER documented as of this encounter Plan of Treatment Upcoming Encounters Date Type Specialty Care Team Description 05/12/2022 Hospital Encounter Chemo Therapy/Infusion Services 09/15/2022 Telemedicine Gastroenterology Eusebio Haines MD [address] [place], [place] [address] documented as of this encounter Procedures Procedure Name Priority Date/Time Associated Comments Diagnosis THYROID STIMULATING Routine 05/25/2009 9:53 AM Re sults for this HORMONE IRRIGATION LABORER procedure are i n the results section. CREATININE / GFR Routine 05/25/2009 9:53 AM Resul ts for this IRRIGATION LABORER procedure are i n the results section. ELECTROLYTE PANEL Routine 05/25/2009 9:53 AM Resu lts for this IRRIGATION LABORER procedure are i n the results section. documented in this encounter Results THYROID STIMULATING HORMONE (05/25/2009 9:53 AM IRRIGATION LABORER) athologist Signature Thyroid 1.97 0.20 - HP CONVERSION Stimulating 4.50 Hormone uIU/mL Specimen (Source) Anatomical Collection Method Collection Time Re ceived Time Location / / Volume Laterality 05/25/2009 9:53 AM IRRIGATION LABORER Munira Combs PA-C LAB_1 Performing Organization Address City/[facility] [place] Phon e Number HP CONVERSION Electrolyte Panel (05/25/2009 9:53 AM IRRIGATION LABORER) athologist Signature Sodium 138 137 - 147 HP CONVERSION mEq/L Potassium 4.0 3.5 - 5.2 HP CONVERSION mEq/L Chloride 104 98 - 110 HP CONVERSION mEq/L Bicarbonate 29 23 - 33 HP CONVERSION mmol/L Specimen (Source) Anatomical Collection Method Collection Time Re ceived Time Location / / Volume Laterality 05/25/2009 9:53 AM IRRIGATION LABORER Munira Combs PA-C LAB_1 Performing Organization Address [facility] [place] Phon e Number HP CONVERSION Creatinine / GFR (05/25/2009 9:53 AM IRRIGATION LABORER) athologist Signature Creatinine 0.8 0.4 - 1.3 HP CONVERSION Serum mg/dL Est GFR >60 >60 HP CONVERSION Am Comment: -German and Ttw-Spiyrca-Oslmyto n reference range units: mL/min/1.73m2 Normal>60, moderate decrease 30 - 59, se nay decrease 15 - 29, renal failure <15 mL/min/1.73 m2 NOTE: Choose the eGFR result above appro priate for the race of the patient. Est GFR Non-Afr Am >60 >60 HP CONVERSI ON Specimen (Source) Anatomical Collection Method Collection Time Re ceived Time Location / / Volume Laterality 05/25/2009 9:53 AM IRRIGATION LABORER Munira Combs PA-C LAB_1 Performing Organization Address City/[facility] [place] Phon e Number HP CONVERSION documented in this encounter Visit Diagnoses Not on filedocumented in this encounter Care Teams Operations Support Coordinator Relationship Specialty Start Date End Date Munira Combs PA-C PCP - General 09/25/10 03/14/15 [address] [place] [address] documented as of this encounter
--- OUTSIDE RECORDS SUMMARY | 2022-05-09 19:31 | XMS_ITS | Encounter Summary ---
:1975 Author Organization [employer] Address [address] [place] [address] Care Team Providers Name Role Phone Munira Combs PA-C Primary Care Provider Encounter Details Date Type Department Care Team Description 07/22/2008 PN Conversion Only [facility] [address] Barby Mott M D, Dermatology PhD [address] [facility] [address] [place], [place] [address] [address] [place], [place] [phone] (Wo rk) Social History Tobacco Use Types Packs/Day Years Used Date Smoking Tobacco: Never Assessed Sex Assigned at Date Recorded Female 05/09/2021 7:19 PM CIGAR SORTER documented as of this encounter Progress Notes Barby Mott MD, PhD - 07/22/2008 12:01 AM CST Progress Notes signed by Barby Mott MD at 07/22/08 0907 Author: Barby Mott MD Service: (none) Author Type: Physician Filed: 10/15/10 1009 Note Time: 07/22/08 0001 Status: Signed Packaging Sales: Barby Mott MD (Physician) Dermatology Clinic Visit [...] LastWord. Social history : Patient works at [employer]. 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 CC: Katerina Britton *SH~DNS~EXC R SORTER documented in this encounter Plan of Treatment Upcoming Encounters Date Type Specialty Care Team Description 05/12/2022 Hospital Encounter Chemo Therapy/Infusion Services 09/15/2022 Telemedicine Gastroenterology Eusebio Haines MD [address] [place] [address] documented as of this encounter Visit Diagnoses Not on filedocumented in this encounter Care Teams Rim Turning Machine Operator Relationship Specialty Start Date End Date Munira Combs PA-C PCP - General 09/25/10 03/14/15 [address] [place] [address] documented as of this encounter
--- OUTSIDE RECORDS SUMMARY | 2022-05-09 19:31 | XMS_ITS | Encounter Summary ---
:1975 Author Organization [employer] Address [address] [place] [address] Care Team Providers Name Role Phone Munira Combs PA-C Primary Care Provider Encounter Details Date Type Department Care Team Description 06/09/2009 PN Conversion Only [place] CON[facility] Munira Combs PA-C [address] [facility] [place] [address] [place] [address] (Wo rk) Social History Tobacco Use Types Packs/Day Years Used Date Smoking Tobacco: Never Assessed Sex Assigned at Date Recorded Female 05/09/2021 7:19 PM HAND CLOTH EXAMINER documented as of this encounter Plan of Treatment Upcoming Encounters Date Type Specialty Care Team Description 05/12/2022 Hospital Encounter Chemo Therapy/Infusion Services 09/15/2022 Telemedicine Gastroenterology Eusebio Haines MD [address] [place] [address] documented as of this encounter Procedures Procedure Name Priority Date/Time Associated Diagnosis Comme nts CREATININE / GFR Routine 06/09/2009 11:31 AM Resu lts for this HAND CLOTH EXAMINER procedure are i n the results section. ELECTROLYTE PANEL Routine 06/09/2009 11:31 AM Res ults for this HAND CLOTH EXAMINER procedure are i n the results section. documented in this encounter Results (ABNORMAL) Electrolyte Panel (06/09/2009 11:31 AM HAND CLOTH EXAMINER) P athologist Signature Sodium 135 (L) 137 - 147 HP CONVERSION mEq/L Potassium 3.9 3.5 - 5.2 HP CONVERSION mEq/L Chloride 102 98 - 110 HP CONVERSION mEq/L Bicarbonate 30 23 - 33 HP CONVERSION mmol/L Specimen (Source) Anatomical Collection Method Collection Time Re ceived Time Location / / Volume Laterality 06/09/2009 11:31 AM HAND CLOTH EXAMINER Munira Combs PA-C LAB_1 Performing Organization Address City/[facility] Phon e Number HP CONVERSION Creatinine / GFR (06/09/2009 11:31 AM HAND CLOTH EXAMINER) P athologist Signature Creatinine 0.8 0.4 - 1.3 HP CONVERSION Serum mg/dL Est GFR >60 >60 HP CONVERSION Am Comment: -Nigerien and Ldy-Pehwxrv-Eydvkjp n reference range units: mL/min/1.73m2 Normal>60, moderate decrease 30 - 59, se nay decrease 15 - 29, renal failure <15 mL/min/1.73 m2 NOTE: Choose the eGFR result above appro priate for the race of the patient. Est GFR Non-Afr Am >60 >60 HP CONVERSI ON Specimen (Source) Anatomical Collection Method Collection Time Re ceived Time Location / / Volume Laterality 06/09/2009 11:31 AM HAND CLOTH EXAMINER Munira Combs PA-C LAB_1 Performing Organization Address City/[facility] Phon e Number HP CONVERSION documented in this encounter Visit Diagnoses Not on filedocumented in this encounter Care Teams Template Fitter Relationship Specialty Start Date End Date Munira Combs PA-C PCP - General 09/25/10 03/14/15 [address] [place] [address] documented as of this encounter
--- OUTSIDE RECORDS SUMMARY | 2022-05-09 19:31 | XMS_ITS | Encounter Summary ---
:1975 Author Organization [facility] Address [address] [place] [address] Care Team Providers Name Role Phone Munira Combs PA-C Primary Care Provider Reason for Visit Reason Comments Other Encounter Details Date Type Department Care Team Description 02/18/2009 Telephone [facility] [address] phthal[address] [place], Message Other [address] Katie [address]fey. [place], [place] [address] Social History Tobacco Use Types Packs/Day Years Used Date Smoking Tobacco: Never Assessed Sex Assigned at Date Recorded Female 05/09/2021 7:19 PM LABEL PRINTER documented as of this encounter Progress Notes Center, Message - 02/18/2009 1:42 PM CDT Phone Note filed by [employer] at 10/14/10 8420 Author: [employer] Service: (none) Author Type: (none) Filed: 10/14/10 7680 Note Time: 02/18/09 1342 Status: Signed Elementary Education Tutor: [employer] (Resource) MESSAGE TO CARE TEAM NAME OF CALLER:Patient NAME OF CLINICIAN:Dr. Christianson MESSAGE:please fax gls rx to [phone]. She knows it is . PHARMACY NAME: PHARMACY PHONE #: CITY: CALL BACK PHONE OR CELL PHONE:[phone] BEST TIME TO CALL BACK: IS IT OK TO LEAVE A CONFIDENTIAL MESSAGE ON THIS VOICEMAIL? *ECODE~PNMSG Created on 18Feb2009 1:42pm by AIDAN CHA On 18Feb2009 2:11pm ENID STRANGE wrote: faxed pts 06-22-2006 eyeglass rx to # above Acknowledged by ENID STRANGE on 2:11pm L PRINTER documented in this encounter Plan of Treatment Upcoming Encounters Date Type Specialty Care Team Description 05/12/2022 Hospital Encounter Chemo Therapy/Infusion Services 09/15/2022 Telemedicine Gastroenterology Eusebio Haines MD [address] [place] [address] documented as of this encounter Visit Diagnoses Not on filedocumented in this encounter Care Teams Cement Or Concrete Finishing Supervisor Relationship Specialty Start Date End Date Munira Combs PA-C PCP - General 09/25/10 03/14/15 [address] [place], [place] [phone] documented as of this encounter
--- OUTSIDE RECORDS SUMMARY | 2022-05-09 19:31 | XMS_ITS | Encounter Summary ---
:1975 Author Organization [employer] Address [address] [place] [address] Care Team Providers Name Role Phone Munira Combs PA-C Primary Care Provider Encounter Details Date Type Department Care Team Description 04/26/2009 Office Visit [facility] Coral Gasca PA-C [address] [facility] [place] [address] [place] [address] [phone] (Wo rk) Social History Tobacco Use Types Packs/Day Years Used Date Smoking Tobacco: Never Assessed Sex Assigned at Date Recorded Female 05/09/2021 7:[address] LIGHT INSPECTOR documented as of this encounter Last Filed Vital Signs Vital Sign Reading Time Taken Comments Blood Pressure 136/78 04/26/2009 8:[address] LIGHT INSPECTOR Pulse 88 04/26/2009 8:[address] LIGHT INSPECTOR Temperature 36.7 ??C (98.1 ??F) 04/26/2009 8:31 C: 36.7 C Si multaneous AM STREET LIGHT INSPECTOR filing. User may not have seen previo us data. Respiratory Rate - - Oxygen Saturation - - Inhaled Oxygen - - Concentration Weight 92.3 kg (203 lb 7.8 04/26/2009 8:31 C: 92.3kg oz) AM STREET LIGHT INSPECTOR Height 167 cm (5' 5.75) 04/26/2009 8:31 C: 167.0cm AM STREET LIGHT INSPECTOR Body Mass Index 33.1 04/26/2009 8:[address] LIGHT INSPECTOR documented in this encounter Progress Notes Coral Naranjo PA-C - 04/26/2009 12:01 AM CST Progress Notes signed by Coral Echevarria PA-C at 04/26/09 0854 Author: Coral Echevarria PA-C Service: (none) Author Type: Physician Packing Machine Pilot Can Router Filed: 10/15/10 6922 Note Time: 04/26/09 0001 Status: Signed Brick Loader: Coral Echevarria PA-C (Resource) Acute Clinic Visit IMPRESSION: Viral URI SUBJECTIVE: History of Present Illness: Symptom(s): Afebrile. Headache. No ear pain. Nasal congestion/rhinorrhea. No sore throat. No neck stiffness. Cough. No chest pain. No shortness of breath. No wheezing. No nausea. No vomiting. No diarrhea. No abdominal pain. Cough: Duration: 3 days. Severity: Mild. Symptom Trend: Stable. Meds This Illness: OTC therapies Past History: No History of Respiratory Disease Tobacco: Socially only. Alcohol: None. Drugs: Has used marijuana rarely. Adverse Drug Reactions: Patient's ADR's were reviewed and updated today on the Health Profile screen of [facility]. Chronic Medications: Reviewed and updated today on Health Profile in [facility]. Online medical records were reviewed by me. OBJECTIVE: Vital Signs: Vital Signs taken today were reviewed on the flowsheet in [facility]. General Appearance: Well-appearing Eyes: External exam is normal bilaterally Ears: Bilateral pinnae, canals and TMs normal Nose/Sinuses: Normal Oropharynx: Normal, mucous membranes moist, tonsils symmetric without redness or exudate. Neck: Supple without significant adenopathy or thyromegaly Respiratory: Lung sounds clear to auscultation without respiratory distress Cardiac: RRR without murmur Abdomen: Normal abdominal exam without tenderness or organomegaly Skin: Skin exam normal Lab & X-Ray: None ASSESSMENT: Viral URI PLAN: Albuterol MDI 2 puffs q4 hrs. PRN wheezing or chest tightness Robitussin w/ cod. 1-2 tsp. q4 hrs. PRN cough at home Symptomatic care Oral Decongestants Ibuprofen Treatment of viral illnesses discussed with patient and lack of indications for antibiotic treatment. Nutritious liquids Sinus Irrigation: Patient instructed and pamphlet provided Patient was given discharge instructions and was discharged in stable condition. RTC PRN if not gradually improving *SH~PC~URIL ~Shorthand Note completed on: 04/26/2009 8:54 AM ET LIGHT INSPECTOR documented in this encounter Plan of Treatment Upcoming Encounters Date Type Specialty Care Team Description 05/12/2022 Hospital Encounter Chemo Therapy/Infusion Services 09/15/2022 Telemedicine Gastroenterology Eusebio Haines MD [address] [place] [address] documented as of this encounter Visit Diagnoses Not on filedocumented in this encounter Care Teams Loader Helper Sorting Yard Relationship Specialty Start Date End Date Munira Combs PA-C PCP - General 09/25/10 03/14/15 [address] [place] [address] documented as of this encounter
--- OUTSIDE RECORDS SUMMARY | 2022-05-09 19:31 | XMS_ITS | Encounter Summary ---
:1975 Author Organization [facility] Address [address], [place] [address] Care Team Providers Name Role Phone Sherie Baez PA-C Primary Care Provider Encounter Details Date Type Department Care Team Description 04/28/2009 Telephone [facility] Sherie Falcon PA-C [address] [facility] [address] [place] [address] [place] [address] [phone] (Wo rk) Social History Tobacco Use Types Packs/Day Years Used Date Smoking Tobacco: Never Assessed Sex Assigned at Date Recorded Female 05/09/2021 7:19 PM DECATIZER documented as of this encounter Progress Notes [facility], Message - 04/28/2009 10:54 AM CST Phone Note filed by [employer] at 10/14/10 5660 Author: [employer] Service: (none) Author Type: (none) Filed: 10/14/10 2344 Note Time: 04/28/09 1054 Status: Signed Security Attendant: [employer] (Resource) Prescription Refill Please provide enough refills to last until patient's next visit. Comment:- Pharmacy Seq #:-print to [facility] Street or City:-[place] Clinician Name:-A Strong Drug Name/Strength:-Dicyclomine 20MG tab Sig: Dose/Route/Freq:-take one tab 4 times daily Quantity & Last Fill:-120 11/06/07 Created on 28Apr2009 10:54am by CATIE AVILEZ On 28Apr2009 11:11am SHERIE BAEZ wrote: Sent. Acknowledged by SHERIE BAEZ on 11:11am TIZER documented in this encounter Plan of Treatment Upcoming Encounters Date Type Specialty Care Team Description 05/12/2022 Hospital Encounter Chemo Therapy/Infusion Services 09/15/2022 Telemedicine Gastroenterology Eusebio Haines MD [address] [place] [address] documented as of this encounter Visit Diagnoses Not on filedocumented in this encounter Care Teams Theatre Manager Relationship Specialty Start Date End Date Sherie Baez PA-C PCP - General 09/25/10 03/14/15 [address] [place], [place] [phone] documented as of this encounter
--- OUTSIDE RECORDS SUMMARY | 2022-05-09 19:31 | XMS_ITS | Encounter Summary ---
:1975 Author Organization [facility] Address [address] [place] [address] Care Team Providers Name Role Phone Munira Combs PA-C Primary Care Provider Reason for Visit Reason Comments Other Encounter Details Date Type Department Care Team Description 05/03/2009 Telephone [place] [facility] Enmanuel Contreras, SARA Other [address] [place], [place] [phone] Social History Tobacco Use Types Packs/Day Years Used Date Smoking Tobacco: Never Assessed Sex Assigned at Date Recorded Female 05/09/2021 7:19 PM WATER RESOURCE SPECIALIST documented as of this encounter Progress Notes Dusty Khanna - 05/03/2009 3:17 PM CST Phone Note filed by Dusty Khanna at 10/14/10 1188 Author: Dusty Khanna Service: (none) Author Type: (none) Filed: 10/14/101649 Note Time: 05/03/09 1517 Status: Signed Manager Support Services: Tam Conversion (Physician) PRESCRIPTION REFILL Prescription Refill Please provide enough refills to last until patient's next visit. Comment:-NOT ON PNRF LIST/NEEDS PRINTED SIGNED RX BROUGHT TO PHARMACY Pharmacy Seq #:- Pharmacy Name:[facility] Pharmacy Street or City:- Clinician Name:KELBY Drug Name/Strength:-CHERATUSSIN AC SYRUP Sig: Dose/Route/Freq:-TAKE 1 TO 2 TEASPOONFUL BY MOUTH EVERY 4 HOURS NEEDED Quantity & Last Fill:-120 04/26/2009 *ECODE~PNRF Created on 03May2009 3:17pm by DUSTY KHANNA On 03May2009 3:43pm APARNA CHA wrote: Ok for refill. printed and signed. Acknowledged by APARNA CHA on 3:43pm On 03May2009 4:38pm ENMANUEL CALDERA wrote: Taken to the pharm. Acknowledged by ENMANUEL CALDERA on 4:38pm R RESOURCE SPECIALIST documented in this encounter Plan of Treatment Upcoming Encounters Date Type Specialty Care Team Description 05/12/2022 Hospital Encounter Chemo Therapy/Infusion Services 09/15/2022 Telemedicine Gastroenterology Eusebio Haines MD [address] [place] [address] documented as of this encounter Visit Diagnoses Not on filedocumented in this encounter Care Teams Malted Milk Supervisor Relationship Specialty Start Date End Date Munira Combs PA-C PCP - General 09/25/10 03/14/15 [address] [place], [place] [phone] documented as of this encounter
--- OUTSIDE RECORDS SUMMARY | 2022-05-09 19:31 | XMS_ITS | Encounter Summary ---
:1975 Author Organization [facility] Address [address] [address] Care Team Providers Name Role Phone Munira Combs PA-C Primary Care Provider Encounter Details Date Type Department Care Team Description 07/09/2008 PN Conversion Only [facility] CONVERSION Katerina Britton, ELECTRICAL SUPERVISOR, CATHETER FINISHER AND INSPECTOR [address] [place] [address] (Wo rk) Social History Tobacco Use Types Packs/Day Years Used Date Smoking Tobacco: Never Assessed Sex Assigned at Date Recorded Female 05/09/2021 7:19 PM MANAGER LOCAL documented as of this encounter Plan of Treatment Upcoming Encounters Date Type Specialty Care Team Description 05/12/2022 Hospital Encounter Chemo Therapy/Infusion Services 09/15/2022 Telemedicine Gastroenterology Eusebio Haines MD [address] [place], [place] [address] documented as of this encounter Procedures Procedure Name Priority Date/Time Associated Diagnosis Comme nts DERM PATH-DPF Routine 07/09/2008 10:57 AM Results for this MANAGER LOCAL procedure are i n the results section . documented in this encounter Results Derm Path-Dpf (07/09/2008 10:57 AM MANAGER LOCAL) [facility] Method Time Signature Dermatopathology SEE TEXT No normal HP CONVERSION Final Report range Comment: Patient: IGGY DUARTE ?D ERMATOPATHOLOGY Pathology # [id number] ?Date Obtained: ? Date Received: DIAGNOSIS: A) [...] Bisected and submitted. ?(Gross examination performed by [facility], [place], [place].) RWW/sales apprentice Specimen (Source) Anatomical Collection Method Collection Time Re ceived Time Location / / Volume Laterality 07/09/2008 10:57 AM MANAGER LOCAL Katerina Britton APRN, CNP LAB_1 Performing Organization Address City/State/ZIP Code Phon e Number HP CONVERSION documented in this encounter Visit Diagnoses Not on filedocumented in this encounter Care Teams Front End Java Developer Relationship Specialty Start Date End Date Munira Combs PA-C PCP - General 09/25/10 03/14/15 [address] [place] [address] documented as of this encounter
--- OUTSIDE RECORDS SUMMARY | 2022-05-09 19:31 | XMS_ITS | Encounter Summary ---
:1975 Author Organization [facility] Address [address] [place] [address] Care Team Providers Name Role Phone Munira Combs PA-C Primary Care Provider Encounter Details Date Type Department Care Team Description 07/15/2009 Office Visit [place] Contact L Lucero Guthrie [address] [place] [address] [place], [place] [phone] Social History Tobacco Use Types Packs/Day Years Used Date Smoking Tobacco: Never Assessed Sex Assigned at Date Recorded Female 05/09/2021 7:19 PM PARTS FACILITATOR documented as of this encounter Plan of Treatment Upcoming Encounters Date Type Specialty Care Team Description 05/12/2022 Hospital Encounter Chemo Therapy/Infusion Services 09/15/2022 Telemedicine Gastroenterology Eusebio Haines MD [address] [place] [address] documented as of this encounter Visit Diagnoses Not on filedocumented in this encounter Care Teams Technical Inspector Relationship Specialty Start Date End Date Munira Combs PA-C PCP - General 09/25/10 03/14/15 [address] [place], [place] [phone] documented as of this encounter
--- OUTSIDE RECORDS SUMMARY | 2022-05-09 19:31 | XMS_ITS | Encounter Summary ---
:1975 Author Organization [facility] Address [address], [place] [address] Care Team Providers Name Role Phone Munira Combs PA-C Primary Care Provider Reason for Visit Reason Comments Other Encounter Details Date Type Department Care Team Description 12/28/2008 Telephone [facility], Message Other [address] [place], [place] [address] Social History Tobacco Use Types Packs/Day Years Used Date Smoking Tobacco: Never Assessed Sex Assigned at Date Recorded Female 05/09/2021 7:19 PM PIANO REGULATOR documented as of this encounter Progress Notes Center, Message - 12/28/2008 3:56 PM CDT Phone Note filed by [employer]Jane at 10/14/10624 Author: [employer]Jane Service: (none) Author Type: (none) Filed: 10/14/10624 Note Time: 12/28/08 1556 Status: Signed Rn Hemodialysis Charge: tripJane (Resource) Prescription Refill Please provide enough refills to last until patient's next visit. Comment:- Pharmacy Seq #:-Send to [facility] Street or City:-[place] Clinician Name:-[facility] Name/Strength:-Amitriptyline HCL 25mg tabs. Sig: Dose/Route/Freq:-Take 1-2 tabs at bedtime. Quantity & Last Fill:-90 09/08/08 Created on [id number] 3:56pm by ANGIE ALVARENGA On [id number] 3:59pm ANGIE ALVARENGA wrote: ADDITIONAL PRESCRIPTION REFILL:2 Drug Name/Strength/Sig:-Necon 1-35-28 tabs.Take 1 tab daily. Quantity:-112 Last Refill 12/28/08 On [id number] 11:20am SMITH NORTH wrote: Renewed medication per medication refill protocol. O REGULATOR documented in this encounter Plan of Treatment Upcoming Encounters Date Type Specialty Care Team Description 05/12/2022 Hospital Encounter Chemo Therapy/Infusion Services 09/15/2022 Telemedicine Gastroenterology Eusebio Haines MD [address] [place] [address] documented as of this encounter Visit Diagnoses Not on filedocumented in this encounter Care Teams Returned Item Clerk Relationship Specialty Start Date End Date Munira Combs PA-C PCP - General 09/25/10 03/14/15 [address] [place] [address] documented as of this encounter
--- OUTSIDE RECORDS SUMMARY | 2022-05-09 19:31 | XMS_ITS | Encounter Summary ---
:1975 Author Organization [facility] Address [address] [place] [address] Care Team Providers Name Role Phone Munira Combs PA-C Primary Care Provider Encounter Details Date Type Department Care Team Description 07/22/2008 PN Conversion Only [facility] [address] Barby Mott M D, Dermatology PhD [address] [place] [address] d [address] [facility] [address] [place], [place] [phone] (Wo rk) Social History Tobacco Use Types Packs/Day Years Used Date Smoking Tobacco: Never Assessed Sex Assigned at Date Recorded Female 05/09/2021 7:19 PM PHOTOGEOLOGIST documented as of this encounter Plan of Treatment Upcoming Encounters Date Type Specialty Care Team Description 05/12/2022 Hospital Encounter Chemo Therapy/Infusion Services 09/15/2022 Telemedicine Gastroenterology Eusebio Haines MD [address] [place], [place] [address] documented as of this encounter Visit Diagnoses Not on filedocumented in this encounter Care Teams Game Protector Relationship Specialty Start Date End Date Munira Combs PA-C PCP - General 09/25/10 03/14/15 [address] [place] [address] documented as of this encounter
--- OUTSIDE RECORDS SUMMARY | 2022-05-09 19:31 | XMS_ITS | Encounter Summary ---
:1975 Author Organization [facility] Address [address] [place] [address] Care Team Providers Name Role Phone Sherie Baez PA-C Primary Care Provider Reason for Visit Reason Comments Other Encounter Details Date Type Department Care Team Description 05/21/2009 Telephone [facility] Sherie Falcon PA-C Other [address] [employer] [address] [address] [place] [address] (Wo rk) Social History Tobacco Use Types Packs/Day Years Used Date Smoking Tobacco: Never Assessed Sex Assigned at Date Recorded Female 05/09/2021 7:19 PM MARKET INVESTIGATOR documented as of this encounter Progress Notes Center, Message - 05/21/2009 3:35 PM CST Phone Note filed by [employer] at 10/14/101820 Author: [employer] Service: (none) Author Type: (none) Filed: 10/14/101820 Note Time: 05/21/091534 Status: Signed City Marshal: [employer] (Resource) PRESCRIPTION REFILL Please provide enough refills to last until patient's next visit. Comment:- Pharmacy Seq #:-print to [facility] Name-Phone/Fax:-[facility] Street or City:- [place] Clinician Name:-A Strong Drug Name/Strength:-Phentermine 30MG cap Sig: Dose/Route/Freq:- take one cap daily Quantity & Last Fill:-05/01/07 *ECODE~PNRF Created on 21May2009 3:35pm by CATIE AVILEZ On 21May2009 5:00pm SHERIE BAEZ wrote: Denied for now. I want to discuss this first. Appt on 05-26-09. Possible interaction with amitriptyline. Acknowledged by SHERIE BAEZ on 5:00pm ET INVESTIGATOR documented in this encounter Plan of Treatment Upcoming Encounters Date Type Specialty Care Team Description 05/12/2022 Hospital Encounter Chemo Therapy/Infusion Services 09/15/2022 Telemedicine Gastroenterology Eusebio Haines MD [address] [place] [address] documented as of this encounter Visit Diagnoses Not on filedocumented in this encounter Care Teams High School Coach Relationship Specialty Start Date End Date Sherie Baez PA-C PCP - General 09/25/10 03/14/15 [address] [place], [place] [phone] documented as of this encounter
--- OUTSIDE RECORDS SUMMARY | 2022-05-09 19:31 | XMS_ITS | Encounter Summary ---
:1975 Author Organization [facility] Address [address] [place] [address] Care Team Providers Name Role Phone Munira Combs PA-C Primary Care Provider Encounter Details Date Type Department Care Team Description 07/09/2008 PN Conversion Only [facility] [address], Dermatology [address] [place] [address] [facility] [address] [place], [place] [phone] [address] (Wo rk) Social History Tobacco Use Types Packs/Day Years Used Date Smoking Tobacco: Never Assessed Sex Assigned at Date Recorded Female 05/09/2021 7:19 PM FLAT GRINDER OPERATOR documented as of this encounter Plan of Treatment Upcoming Encounters Date Type Specialty Care Team Description 05/12/2022 Hospital Encounter Chemo Therapy/Infusion Services 09/15/2022 Telemedicine Gastroenterology Eusebio Haines MD [address] [place], [place] [address] documented as of this encounter Visit Diagnoses Not on filedocumented in this encounter Care Teams Bank Manager Relationship Specialty Start Date End Date Munira Combs PA-C PCP - General 09/25/10 03/14/15 [address] [place], [place] [phone] documented as of this encounter
--- OUTSIDE RECORDS SUMMARY | 2022-05-09 19:31 | XMS_ITS | Encounter Summary ---
:1975 Author Organization [facility] Address [address] [address] Care Team Providers Name Role Phone Munira Combs PA-C Primary Care Provider Reason for Visit Reason Comments Other Encounter Details Date Type Department Care Team Description 03/04/2008 Telephone [facility] [address] Neurology Cristian Fisher Other [address] [place] [address] Social History Tobacco Use Types Packs/Day Years Used Date Smoking Tobacco: Never Assessed Sex Assigned at Date Recorded Female 05/09/2021 7:19 PM ADA ACCOMMODATION CONSULTANT documented as of this encounter Progress Notes Cristian Fisher - 03/04/2008 9:29 PM CDT Phone Note filed by Cristian Fisher MD at 10/13/1045 Author: Cristian Fisher MD Service: (none) Author Type: (none) Filed: 10/13/10 0545 Note Time: 03/04/082128 Status: Signed Powerhouse Electrician: Cristian Fisher MD (Physician) Contacted by Dr. [...] Created on 04Mar2008 9:29pm by CRISTIAN FISHER ACCOMMODATION CONSULTANT documented in this encounter Plan of Treatment Upcoming Encounters Date Type Specialty Care Team Description 05/12/2022 Hospital Encounter Chemo Therapy/Infusion Services 09/15/2022 Telemedicine Gastroenterology Eusebio Haines MD [address] [place] [address] documented as of this encounter Visit Diagnoses Not on filedocumented in this encounter Care Teams Stumper Feller Relationship Specialty Start Date End Date Munira Combs PA-C PCP - General 09/25/10 03/14/15 [address] [place], [place] [phone] documented as of this encounter
--- OUTSIDE RECORDS SUMMARY | 2022-05-09 19:31 | XMS_ITS | Encounter Summary ---
:1975 Author Organization [facility] Address [address], [place] [address] Care Team Providers Name Role Phone Munira Combs PA-C Primary Care Provider Reason for Visit Reason Comments Other Encounter Details Date Type Department Care Team Description 04/28/2009 Telephone [facility], Message Other [address] [place] [address] Social History Tobacco Use Types Packs/Day Years Used Date Smoking Tobacco: Never Assessed Sex Assigned at Date Recorded Female 05/09/2021 7:19 PM HAMMER SETTER documented as of this encounter Progress Notes Center, Message - 04/28/2009 10:53 AM CST Phone Note filed by [employer] at 10/14/10 8637 Author: [employer] Service: (none) Author Type: (none) Filed: 10/14/10 1626 Note Time: 04/28/09 1053 Status: Signed Driver Material Handler: [employer] (Resource) Prescription Refill Please provide enough refills to last until patient's next visit. Comment:- Pharmacy Seq #:-print to [facility] Street or City:-[place] [...] pt will call back to schedule appt. ER SETTER documented in this encounter Plan of Treatment Upcoming Encounters Date Type Specialty Care Team Description 05/12/2022 Hospital Encounter Chemo Therapy/Infusion Services 09/15/2022 Telemedicine Gastroenterology Eusebio Haines MD [address] [place] [address] documented as of this encounter Visit Diagnoses Not on filedocumented in this encounter Care Teams Application Development Consultant Relationship Specialty Start Date End Date Munira Combs PA-C PCP - General 09/25/10 03/14/15 [address] [place] [address] documented as of this encounter
--- OUTSIDE RECORDS SUMMARY | 2022-05-09 19:31 | XMS_ITS | Encounter Summary ---
:1975 Author Organization [facility] Address [address], [place] [address] Care Team Providers Name Role Phone Munira Combs PA-C Primary Care Provider Encounter Details Date Type Department Care Team Description 05/07/2008 PN Conversion Only FRESNO CONVERSIO N Munira Combs PA-C [address] [facility] [id number] [place] [address] (Wo rk) Social History Tobacco Use Types Packs/Day Years Used Date Smoking Tobacco: Never Assessed Sex Assigned at Date Recorded Female 05/09/2021 7:19 PM ELEMENTARY SCHOOL COUNSELOR documented as of this encounter Plan of Treatment Upcoming Encounters Date Type Specialty Care Team Description 05/12/2022 Hospital Encounter Chemo Therapy/Infusion Services 09/15/2022 Telemedicine Gastroenterology Eusebio Haines MD [address] [place], [place] [address] documented as of this encounter Procedures Procedure Name Priority Date/Time Associated Comments Diagnosis ANATOMICAL PATH Routine 05/07/2008 11:05 AM Resul ts for this LIQUID BASED ELEMENTARY SCHOOL COUNSELOR procedure are i n the results section. documented in this encounter Results Pap Smear (05/07/2008 11:05 AM ELEMENTARY SCHOOL COUNSELOR) [facility] Method Time Signature PAP Smear SEE TEXT No normal HP CONVERSION Liquid Based range Comment: Patient: IGGY DUARTE ? CERVICAL CYTOLOGY REPORT Pathology # ??[id number] ?Date Obtained: ? Date Received: CYTOLOGIC IMPRESSION: Negative for intraepithelial lesion or m alignancy. Verified 05/12/08 by: ??TSC ?(electronic signature) ? CELSO TIONAL DATA LMP: CLINICAL HIST LIQUID BASED PAP CERVICAL SPECIMEN ADEQUACY: ?? Satisfactory. ENDOCERVICAL CELLS: ??Absent. Specimen (Source) Anatomical Collection Method Collection Time Re ceived Time Location / / Volume Laterality 05/07/2008 11:05 AM ELEMENTARY SCHOOL COUNSELOR Munira Combs PA-C LAB_1 Performing Organization Address City/State/ZIP Code Phon e Number HP CONVERSION documented in this encounter Visit Diagnoses Not on filedocumented in this encounter Care Teams Polytechnic Registrar Relationship Specialty Start Date End Date Munira Combs PA-C PCP - General 09/25/10 03/14/15 [address] [place] [address] documented as of this encounter
--- OUTSIDE RECORDS SUMMARY | 2022-05-09 19:31 | XMS_ITS | Encounter Summary ---
:1975 Author Organization [facility] Address [address] [place] [address] Care Team Providers Name Role Phone Munira Combs PA-C Primary Care Provider Encounter Details Date Type Department Care Team Description 07/09/2008 Office Visit [facility] Katerina Arriaza APRN, [address] [place] [address] [address] [place] [phone] [place] [address] (Wo rk) Social History Tobacco Use Types Packs/Day Years Used Date Smoking Tobacco: Never Assessed Sex Assigned at Date Recorded Female 05/09/2021 7:19 PM ASBESTOS SURVEYOR documented as of this encounter Progress Notes Katerina Britton APRN, [facility] - 07/09/2008 12:01 AM CST Progress Notes signed by ALFONSO Thompson at 07/09/08 1125 Author: ALFONSO Thompson Service: (none) Author Type: Nurse Practitioner Filed: 10/15/10 0950 Note Time: 07/09/08 0001 Status: Signed Ship Unloader: ALFONSO Thompson (Nurse Practitioner) Clinic Visit SUBJECTIVE: [...] always tanned very well 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 She is and does [employer] horse back riding. Past Medical History: Irritable [...] Patient will be called with histopathology report [phone]. I have set her up for her consultation with Dr. Rufina Morris for evaluation of the irregularly shaped nevus of the right foot. I have strongly discouraged her from using the tanning both. Impression: 1. Lesion of the abdomen 2. Lesion of the left upper outer thigh 3. Irregular shaped nevus of the right foot *SH~DNS~SOAP1 STOS SURVEYOR documented in this encounter Plan of Treatment Upcoming Encounters Date Type Specialty Care Team Description 05/12/2022 Hospital Encounter Chemo Therapy/Infusion Services 09/15/2022 Telemedicine Gastroenterology Eusebio Haines MD [address] [place] [address] documented as of this encounter Visit Diagnoses Not on filedocumented in this encounter Care Teams Sales And Service Engineer Relationship Specialty Start Date End Date Munira Combs PA-C PCP - General 09/25/10 03/14/15 [address] [place], [place] [address] documented as of this encounter
--- OUTSIDE RECORDS SUMMARY | 2022-05-09 19:31 | XMS_ITS | Encounter Summary ---
:1975 Author Organization [email or web address] Address [address] [place] [address] Care Team Providers Name Role Phone Munira Combs PA-C Primary Care Provider Encounter Details Date Type Department Care Team Description 08/20/2009 PN Conversion Only NADIA CONVERSION Munira Combs PA-C [address] [place] [address] [place] [address] (Wo rk) Social History Tobacco Use Types Packs/Day Years Used Date Smoking Tobacco: Never Assessed Sex Assigned at Date Recorded Female 05/09/2021 7:19 PM CUFFER documented as of this encounter Plan of Treatment Upcoming Encounters Date Type Specialty Care Team Description 05/12/2022 Hospital Encounter Chemo Therapy/Infusion Services 09/15/2022 Telemedicine Gastroenterology Eusebio Haines MD [address] [place], [place] [address] documented as of this encounter Procedures Procedure Name Priority Date/Time Associated Diagnosis Comme nts SODIUM Routine 08/20/2009 4:30 PM Results f or this CUFFER procedure are i n the results section . documented in this encounter Results (ABNORMAL) Sodium (08/20/2009 4:30 PM CUFFER) athologist Signature Sodium 136 (L) 137 - 147 HP CONVERSION mEq/L Specimen (Source) Anatomical Collection Method Collection Time Re ceived Time Location / / Volume Laterality 08/20/2009 4:30 PM CUFFER Munira Combs PA-C LAB_1 Performing Organization Address City/State/ZIP Code Phon e Number HP CONVERSION documented in this encounter Visit Diagnoses Not on filedocumented in this encounter Care Teams Director Of Contracts Relationship Specialty Start Date End Date Munira Combs PA-C PCP - General 09/25/10 03/14/15 [address] [place] [address] documented as of this encounter
--- OUTSIDE RECORDS SUMMARY | 2022-05-09 19:31 | XMS_ITS | Encounter Summary ---
:1975 Author Organization [employer] Address [address] [place] [address] Care Team Providers Name Role Phone Munira Combs PA-C Primary Care Provider Encounter Details Date Type Department Care Team Description 06/19/2008 Office Visit [facility] Ellie Olivares MD [facility] [place] [address] [facility] [place] [address] [phone] (Wo rk) Social History Tobacco Use Types Packs/Day Years Used Date Smoking Tobacco: Never Assessed Sex Assigned at Date Recorded Female 05/09/2021 7:19 PM TEMPERATURE INSPECTOR documented as of this encounter Last Filed Vital Signs Vital Sign Reading Time Taken Comments Blood Pressure 116/76 06/19/2008 1:03 PM TEMPERATURE INSPECTOR Pulse 96 06/19/2008 1:03 PM TEMPERATURE INSPECTOR Temperature 36.7 ??C (98.1 ??F) 06/19/2008 1:03 PM ORAL C: 3 6.7 C TEMPERATURE INSPECTOR Respiratory Rate - - Oxygen Saturation - - Inhaled Oxygen Concentration - - Weight - - Height - - Body Mass Index - - documented in this encounter Progress Notes Ellie Manrique MD - 06/19/2008 12:01 AM CST Progress Notes signed by Ellie Manrique MD at 06/19/08 2971 Author: Ellie Manrique MD Service: (none) Author Type: Physician Filed: 10/15/10 0923 Note Time: 06/19/08 0001 Status: Signed Fisheries Technician: Ellie Manrique MD (Physician) NAME: IGGY DUARTE MR#: [id number] ACCT: [id number] VISIT: [id number] DICTATING CLINICIAN: ELLIE MANRIQUE MD CONFIRM #: [id number] LOC: 1702 CLINIC PROGRESS NOTE DATE OF VISIT: 06/19/2008 SUBJECTIVE: 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 DLV:[id number] C: 06/19/08 14:52 CONFIRM #: [id number] ERATURE INSPECTOR documented in this encounter Plan of Treatment Upcoming Encounters Date Type Specialty Care Team Description 05/12/2022 Hospital Encounter Chemo Therapy/Infusion Services 09/15/2022 Telemedicine Gastroenterology Ellie Haines MD [address] [place] [address] documented as of this encounter Visit Diagnoses Not on filedocumented in this encounter Care Teams Health Informatics Specialist Relationship Specialty Start Date End Date Munira Combs PA-C PCP - General 09/25/10 03/14/15 [address] [place] [address] documented as of this encounter
--- OUTSIDE RECORDS SUMMARY | 2022-05-09 19:31 | XMS_ITS | Encounter Summary ---
:1975 Author Organization [employer] Address [address] [place] [address] Care Team Providers Name Role Phone Munira Combs PA-C Primary Care Provider Reason for Visit Reason Comments Other Encounter Details Date Type Department Care Team Description 07/21/2008 Telephone [facility] Katerina Arriaza, MUSIC LIBRARIAN, Other [address] [place] [address] [address] [phone] [place], [place] [address] (Wo rk) Social History Tobacco Use Types Packs/Day Years Used Date Smoking Tobacco: Never Assessed Sex Assigned at Date Recorded Female 05/09/2021 7:19 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 documented as of this encounter Progress Notes Center, Message - 07/21/2008 10:46 AM CST Phone Note filed by Octamer at 10/13/10 9641 Author: Octamer Service: (none) Author Type: (none) Filed: 10/13/10 9130 Note Time: 07/21/081045 Status: Signed Behavioral Medical Director: Octamer This pt. is calling re: mole on foot. Pls. call pt. [phone] work Created on 21Jul2008 10:46am by JORGE ROSAS On 21Jul2008 10:51am KATERINA CRUZ wrote: She may show this to Dr. oMtt tomorrow but not to expect removal as the surgery time is for abd and leg. Acknowledged by KATERINA CRUZ on 10:51am LLMENT COUNSELOR documented in this encounter Plan of Treatment Upcoming Encounters Date Type Specialty Care Team Description 05/12/2022 Hospital Encounter Chemo Therapy/Infusion Services 09/15/2022 Telemedicine Gastroenterology Eusebio Haines MD [address] [place] [address] documented as of this encounter Visit Diagnoses Not on filedocumented in this encounter Care Teams Care Consultant Relationship Specialty Start Date End Date Munira Combs PA-C PCP - General 09/25/10 03/14/15 [address] [place], [place] [address] documented as of this encounter
--- OUTSIDE RECORDS SUMMARY | 2022-05-09 19:31 | XMS_ITS | Encounter Summary ---
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
--- OUTSIDE RECORDS SUMMARY | 2022-05-09 19:31 | XMS_ITS | Encounter Summary ---
:1975 Author Organization [facility] Address [address] [place] [address] Care Team Providers Name Role Phone Munira Combs PA-C Primary Care Provider Reason for Visit Reason Comments Other Encounter Details Date Type Department Care Team Description 03/12/2008 Telephone CONV YVAN SprigPETER [facility], Message Other [address] [place] [address] Social History Tobacco Use Types Packs/Day Years Used Date Smoking Tobacco: Never Assessed Sex Assigned at Date Recorded Female 05/09/2021 7:19 PM SOFTWARE REQUIREMENTS ENGINEER documented as of this encounter Progress Notes Conversion, [facility] - 03/12/2008 4:01 PM CDT Phone Note filed by [facility] Conversion at 10/13/10622 Author: [facility] Conversion Service: (none) Author Type: (none) Filed: 10/13/10 0623 Note Time: 03/12/08 1601 Status: Signed Front End Ui Developer: Imr Conversion An evaluation has been requested for this patient in the department of:neurology PLEASE INDICATE IF THIS IS FOR: Consult (request opinion) Reason/Indication is REQUIRED: This may include treatment if appropriate. OR Take over care (referral) Reason/Indication is REQUIRED: Please send response to Dr Fernando Fisher [phone] The new Medicare guidelines for consultation services [...] an automated process on October 06, 2010. WARE REQUIREMENTS ENGINEER documented in this encounter Plan of Treatment Upcoming Encounters Date Type Specialty Care Team Description 05/12/2022 Hospital Encounter Chemo Therapy/Infusion Services 09/15/2022 Telemedicine Gastroenterology Eusebio Haines MD [address] [place] [address] documented as of this encounter Visit Diagnoses Not on filedocumented in this encounter Care Teams Joinery Machinist Relationship Specialty Start Date End Date Munira Combs PA-C PCP - General 09/25/10 03/14/15 [address] [place], [place] [address] documented as of this encounter
--- OUTSIDE RECORDS SUMMARY | 2022-05-09 19:31 | XMS_ITS | Encounter Summary ---
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 documented as of this encounter Last Filed Vital Signs Vital Sign Reading Time Taken Comments Blood Pressure 139/80 05/25/2009 9:00 AM SCUBA DIVE TRAINING INSTRUCTOR Pulse 112 05/25/2009 9:00 AM SCUBA DIVE TRAINING INSTRUCTOR Temperature - - Respiratory Rate - - Oxygen Saturation - - Inhaled Oxygen Concentration - - Weight 95.2 kg (209 lb 15.8 oz) 05/25/2009 9:00 AM C: 9 5.3kg SCUBA DIVE TRAINING INSTRUCTOR Height 166.4 cm (5' 5.5) 05/25/2009 9:00 AM C: 166.4cm SCUBA DIVE TRAINING INSTRUCTOR Body Mass Index 34.41 05/25/2009 9:00 AM SCUBA DIVE TRAINING INSTRUCTOR documented in this encounter Plan of Treatment Upcoming Encounters Date Type Specialty Care Team Description 05/12/2022 Hospital Encounter Chemo Therapy/Infusion Services 09/15/2022 Telemedicine Gastroenterology Eusebio Haines MD [address] [place] [address] documented as of this encounter Visit Diagnoses Not on filedocumented in this encounter Care Teams Diesel Dragline Operator Relationship Specialty Start Date End Date Munira Combs PA-C PCP - General 09/25/10 03/14/15 [address] [place], [place] [address] documented as of this encounter
--- OUTSIDE RECORDS SUMMARY | 2022-05-09 19:32 | XMS_ITS | Encounter Summary ---
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 JLP:[id number] C: 03/20/07 07:43 DOCUMENT: [id number] documented in this encounter Plan of Treatment Upcoming Encounters Date Type Specialty Care Team Description 05/12/2022 Hospital Encounter Chemo Therapy/Infusion Services 09/15/2022 Telemedicine Gastroenterology Eusebio Haines MD [address] [place] [address] documented as of this encounter Procedures Procedure [...] or other bone or soft tissue abnormality. [id number] Dictating VIOLET CASPER RADIOLOGIST Procedure Note Violte Garces - 08/25/2016Formattin g of this note might be different from the original. There is no evidence of fracture or othe r bone or soft tissue abnormality. [id number] Dictating VIOLET CASPER RADIOLOGIST Talita Jimenez MD RAD GD documented in this encounter Visit Diagnoses Not on filedocumented in this encounter Care Teams Serger Relationship Specialty Start Date End Date Munira Combs PA-C PCP - General 09/25/10 03/14/15 [address] [place] [address] documented as of this encounter
--- OUTSIDE RECORDS SUMMARY | 2022-05-09 19:32 | XMS_ITS | Encounter Summary ---
:1975 Author Organization [facility] Address [address] [address] Care Team Providers Name Role Phone Munira Combs PA-C Primary Care Provider Reason for Visit Reason Comments Other Encounter Details Date Type Department Care Team Description 02/10/2008 Telephone [facility] Katerina Ruiz Other [address] [place] [address] Social History Tobacco Use Types Packs/Day Years Used Date Smoking Tobacco: Never Assessed Sex Assigned at Date Recorded Female 05/09/2021 7:19 PM SCIENTIFIC LINGUIST documented as of this encounter Progress Notes Conversion, [facility] - 02/10/2008 11:12 AM CDT Phone Note filed by [facility] Conversion at 10/13/10349 Author: [facility] Conversion Service: (none) Author Type: (none) Filed: 10/13/10349 Note Time: 02/10/08 1112 Status: Signed Team Facilitator: [facility] Conversion MESSAGE TO CARE TEAM NAME OF CALLER:[facility] NADIA NAME OF CLINICIAN: MESSAGE:REQ REFILL PIROXICAM 20MG CAPSULE TAKE ONE CAPSULE BY MOUTH EVERY DAY WITH FOOD FOR ARTHRITIS #30 LAST FILL 02/06/08 PHARMACY NAME:[facility] PHONE #:[phone] FAX [phone] CITY:[place] CALL BACK PHONE OR CELL PHONE: BEST TIME TO CALL BACK: IS IT OK TO LEAVE A CONFIDENTIAL MESSAGE ON THIS VOICEMAIL? *ECODE~PNMSG Created on 10Feb2008 11:12am by KATERINA RUIZ On 11Feb2008 4:50pm JOVAN ERNST wrote: OK TO REFILL PIROXICAM, 20 MG PO DAILY, 4 REFILLS. MKT Acknowledged by JOVAN ERNST on 4:50pm On 12Feb2008 10:24am KATERINA RUIZ wrote: PHARMACY PHONED WITH ' RESPONSE. Acknowledged by KATERINA RUIZ on 10:24am NTIFIC LINGUIST documented in this encounter Plan of Treatment Upcoming Encounters Date Type Specialty Care Team Description 05/12/2022 Hospital Encounter Chemo Therapy/Infusion Services 09/15/2022 Telemedicine Gastroenterology Eusebio Haines MD [address] [place] [address] documented as of this encounter Visit Diagnoses Not on filedocumented in this encounter Care Teams Administrative Program Specialist Relationship Specialty Start Date End Date Munira Combs PA-C PCP - General 09/25/10 03/14/15 [address] [place], [place] [address] documented as of this encounter
--- OUTSIDE RECORDS SUMMARY | 2022-05-09 19:32 | XMS_ITS | Encounter Summary ---
:[address] [facility] Address [address] [place] [address] Care Team Providers Name Role Phone Munira Combs PA-C Primary Care Provider Encounter Details Date Type Department Care Team Description 07/25/2007 Office Visit [facility] [place] [address] [place] [address] [place] [address] [phone] (Wo rk) Social History Tobacco Use Types Packs/Day Years Used Date Smoking Tobacco: Never Assessed Sex Assigned at Date Recorded Female 05/09/2021 7:19 PM PROOF TECHNICIAN HELPER documented as of this encounter Progress Notes Jovan Soto MD - 07/25/2007 12:01 AM CST Progress Notes signed by Jovan Soto MD at 07/30/07 1149 Author: Jovan Soto MD Service: (none) Author Type: Physician Filed: 10/15/10 0016 Note Time: 07/25/07 0001 Status: Signed Cosmetic Sales: Jovan Soto MD (Physician) NAME: IGGY DUARTE MR#: [id number] ACCT: [id number] VISIT: [id number] DICTATING CLINICIAN: JOVAN SOTO MD JOB: [id number] LOC: 511 CLINIC PROGRESS NOTE DATE OF [...] NONE. 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 She is a nonsmoker. Hobbies include horses, [...] joint pain. Follow up after the MRI. [id number]:[id number] C: 07/28/07 09:36 DOCUMENT: [id number] F TECHNICIAN HELPER documented in this encounter Plan of Treatment Upcoming Encounters Date Type Specialty Care Team Description 05/12/2022 Hospital Encounter Chemo Therapy/Infusion Services 09/15/2022 Telemedicine Gastroenterology Eusebio Haines MD [address] [place] [address] documented as of this encounter Procedures Procedure Name Priority Date/Time Associated Diagnosis Comme nts XR ANKLE LT 3 VIEWS Routine 07/25/2007 9:39 AM Re sults for this PROOF TECHNICIAN HELPER procedure are i n the results section. documented in this encounter Results XR Ankle Lt 3 Views (07/25/2007 9:39 AM PROOF TECHNICIAN HELPER) Anatomical Region Laterality Modality Lower Extremity, Ankle, Foot & Ankle Oth er Specimen (Source) Anatomical Location Collection Method / Collectio n Time Received Time / Laterality Volume Impressions 07/25/2007 9:39 AM PROOF TECHNICIAN HELPER : ??Negative examination. [facility]/ ??[id number] Dictating HANNY GREENE Radiologist Narrative 07/25/2007 9:39 AM PROOF TECHNICIAN HELPER COMPARISON STUDY: ??None. CLINICAL HISTORY: ??32-year-old female w ith pain. Procedure Note Hanny Wiley MD - 08/25/2016Formattin g of this note might be different from the original. COMPARISON STUDY: None. CLINICAL HISTORY: 32-year-old female wit h pain. IMPRESSION : Negative examination. [facility]/ [id number] Dictating HANNY GREENE Radiologist Jovan Soto MD RAD GD documented in this encounter Visit Diagnoses Not on filedocumented in this encounter Care Teams Snaker Relationship Specialty Start Date End Date Munira Combs PA-C PCP - General 09/25/10 03/14/15 [address] [place] [address] documented as of this encounter
--- OUTSIDE RECORDS SUMMARY | 2022-05-09 19:32 | XMS_ITS | Encounter Summary ---
:1975 Author Organization [employer] Address [address] [place] [address] Care Team Providers Name Role Phone Munira Combs PA-C Primary Care Provider Encounter Details Date Type Department Care Team Description 02/28/2008 Hospital Encounter [facility] CONVERSION Charli Schwartz MD [address] [place] [address] (Wo rk) Social History Tobacco Use Types Packs/Day Years Used Date Smoking Tobacco: Never Assessed Sex Assigned at Date Recorded Female 05/09/2021 7:19 PM POLISH COMPOUNDER documented as of this encounter Medications at Time of Discharge Medication Sig Dispensed Refills Start Date End Date dicyclomine (AKA BENTYL) Take 1 capsule by 120 5 10/23 20 MG tablet mouth 4 times daily. dicyclomine (AKA BENTYL) Take 1 capsule by 120 5 03/25 20 MG tablet mouth 4 times daily. dicyclomine (AKA BENTYL) Take 1 capsule by 120 0 09/2 06/2006 20 MG tablet mouth 4 times daily. dicyclomine (AKA BENTYL) Take 1 capsule by 120 2 06/0 11/2006 20 MG tablet mouth 4 times [...] BENTYL) Take 1 capsule by 120 0 /01/2006 20 MG tablet mouth 4 times daily. LW Addl Instr:No further refills will be approved until follow-up appointment is scheduled. Dr. Bazzi dicyclomine (AKA BENTYL) Take 1 capsule by 120 0 06/07/2005 20 MG tablet mouth 4 times daily. [...] pills in a continuous fashion. Dr. Bazzi norelatiaronmark Take 1 tablet by 84 4 04/04/2007 [...] Services 09/15/2022 Telemedicine Gastroenterology Eusebio Haines MD [address] [place] [address] documented as of this encounter Procedures Procedure [...] for concurrent MR angiogram of the brain. [facility]/ ??[id number] Dictating LYLA NEWMAN RADIOLOGIST Narrative 02/28/2008 6:54 [...] for concurrent MR angiogram of the brain. [facility]/ [id number] Dictating LYLA NEWMAN RADIOLOGIST Radha Schwartz MD RAD MRI HMR Angio Head WO IV Cont (02/28/2008 6:53 AM CDT) Anatomical Region Laterality Modality Head Other Specimen (Source) Anatomical Location Collection Method / Collectio n Time Received Time / Laterality Volume Impressions 02/28/2008 6:53 AM CDT : ??Multiple intracranial stenoses, as detailed above. Diagnostic considerations include COTTON BALL BAGGER va sculitis, vasospasm, and premature atherosclerosis. ??Question an y history of hypertension or diabetes. ??Recommend correlation to C-r eactive protein and sedimentation rate. Findings called to Dr. Radha Schwartz's Mira avina se, of the [facility]. [facility]/ [id number] Dictating LYLA NEWMAN RADIOLOGIST Narrative 02/28/2008 6:53 AM CDT CLINICAL HISTORY: ??Headache, head injury. TECHNICAL DATA: ??3-D fxbm-qh-tnysiz MR angiography of the [place] without contrast. FINDINGS: ??No prior [place] candace rison studies. Internal Carotid Arteries: ??Mild [...] HISTORY: Headache, head injury. TECHNICAL DATA: 3-D isog-qt-lcagcf MR an giography of the [place] without contrast. FINDINGS: No prior [facility] son studies. Internal Carotid Arteries: Mild to [...] as det edwin above. Diagnostic considerations include COTTON BALL BAGGER va sculitis, vasospasm, and premature atherosclerosis. Question any history of hypertension or diabetes. Recommend correlation to C-demarcus ctive protein and sedimentation rate. Findings called to Dr. Radha Schwartz's kailyn seMira, of the [facility]. [facility]/ [id number] Dictating LYLA NEWMAN RADIOLOGIST Radha Schwartz MD RAD MRI documented in this encounter Visit Diagnoses Not on filedocumented in this encounter Care Teams Bag Valver Relationship Specialty Start Date End Date Munira Combs PA-C PCP - General 06/30/04 09/24/10 [address] [place] [address] documented as of this encounter
--- OUTSIDE RECORDS SUMMARY | 2022-05-09 19:32 | XMS_ITS | Encounter Summary ---
:1975 Author Organization [employer] Address [address] [place] [address] Care Team Providers Name Role Phone Munira Combs PA-C Primary Care Provider Reason for Visit Reason Comments Other Encounter Details Date Type Department Care Team Description 02/28/2008 Telephone [facility], Message Other [address] [place] [address] Social History Tobacco Use Types Packs/Day Years Used Date Smoking Tobacco: Never Assessed Sex Assigned at Date Recorded Female 05/09/2021 7:19 PM GREASE MONKEY documented as of this encounter Progress Notes Rafita Sanchez LPN - 02/28/2008 4:10 PM CDT Phone Note filed by Rafita Cannon at 10/13/10522 Author: Rafita Cannon Service: (none) Author Type: (none) Filed: 10/13/10522 Note Time: 02/28/08 1610 Status: Signed Caustic Room Operator: [facility] Conversion Radiologist calling with an abnormal MRI/MRA on Idania please read. Created on 28Feb2008 4:10pm by RAFITA CANNON On 28Feb2008 5:16pm LAYA OLEA wrote: Results discussed with Idania. Advise CRP and ESR levels. If normal, consult neurology. Acknowledged by LAYA OLEA on 5Sep08 5:16pm On [id number] 5:18pm SKYE SIMON wrote: Lab order completed. SE MONKEY documented in this encounter Plan of Treatment Upcoming Encounters Date Type Specialty Care Team Description 05/12/2022 Hospital Encounter Chemo Therapy/Infusion Services 09/15/2022 Telemedicine Gastroenterology Eusebio Haines MD [address] [place] [address] documented as of this encounter Visit Diagnoses Not on filedocumented in this encounter Care Teams Restaurant Kitchen Manager Relationship Specialty Start Date End Date Munira Combs PA-C PCP - General 09/25/10 03/14/15 [address] [place], [place] [phone] documented as of this encounter
--- OUTSIDE RECORDS SUMMARY | 2022-05-09 19:32 | XMS_ITS | Encounter Summary ---
:1975 Author Organization [employer] Address [address] [place] [address] Care Team Providers Name Role Phone Munira Combs PA-C Primary Care Provider Reason for Visit Reason Comments Other Encounter Details Date Type Department Care Team Description 03/03/2008 Telephone [facility] Rafita Santana LPN Other [address] [place] [address] Social History Tobacco Use Types Packs/Day Years Used Date Smoking Tobacco: Never Assessed Sex Assigned at Date Recorded Female 05/09/2021 7:19 PM SPRING COILING MACHINE SETTER documented as of this encounter Progress Notes Radha Olea MD - 03/03/2008 9:12 AM CDT Phone Note filed by Radha Olea MD at 10/13/1033 Author: Radha Olea MD Service: (none) Author Type: Physician Filed: 10/13/1033 Note Time: 03/03/08911 Status: Signed Police Captain Senior: Radha Olea MD (Physician) Spoke with Dr. [...] pt. Acknowledged by RAFITA ALEXIS on 2:25pm NG COILING MACHINE SETTER documented in this encounter Plan of Treatment Upcoming Encounters Date Type Specialty Care Team Description 05/12/2022 Hospital Encounter Chemo Therapy/Infusion Services 09/15/2022 Telemedicine Gastroenterology Eusebio Haines MD [address] [place] [address] documented as of this encounter Visit Diagnoses Not on filedocumented in this encounter Care Teams Cloth Roll Winder Relationship Specialty Start Date End Date Munira Combs PA-C PCP - General 09/25/10 03/14/15 [address] [place], [place] [id number] documented as of this encounter
--- OUTSIDE RECORDS SUMMARY | 2022-05-09 19:32 | XMS_ITS | Encounter Summary ---
:1975 Author Organization [employer] Address [address] [address] Care Team Providers Name Role Phone Munira Combs PA-C Primary Care Provider Encounter Details Date Type Department Care Team Description 02/26/2008 Office Visit [facility] Radha Kulkarni MD [facility] [address] [place] [address] [place] [address] [phone] (Wo rk) Social History Tobacco Use Types Packs/Day Years Used Date Smoking Tobacco: Never Assessed Sex Assigned at Date Recorded Female 05/09/2021 7:19 PM CLIENT DELIVERY MANAGER documented as of this encounter Last [...] signed by Radha Schwartz MD at 03/04/08 5369 Author: Radha Schwartz MD Service: (none) Author Type: Physician Filed: 10/15/10 0631 Note Time: 02/26/08 0001 Status: Signed Liquid Flavor Compounder: Radha Schwartz MD (Physician) NAME: IGGY DUARTE MR#: [id number] ACCT: [id number] VISIT: [id number] DICTATING CLINICIAN: Radha Schwartz MD CONFIRM #: [id number] LOC: 1702 CLINIC PROGRESS NOTE DATE OF [...] tendon reflexes 1+ biceps, 2+ knee jerks. [id number] within normal limits. Romberg negative. Strength 5/5 [...] she should contact us sooner, if problems. ITR:[id number] C: 02/27/08 10:01 CONFIRM #: [id number] documented in this encounter Plan of Treatment Upcoming Encounters Date Type Specialty Care Team Description 05/12/2022 Hospital Encounter Chemo Therapy/Infusion Services 09/15/2022 Telemedicine Gastroenterology Eusebio Haines MD [address] [place], [place] [address] documented as of this encounter Visit Diagnoses Not on filedocumented in this encounter Care Teams Flight Operations Engineer Relationship Specialty Start Date End Date Munira Combs PA-C PCP - General 09/25/10 03/14/15 [address] [place] [address] documented as of this encounter
--- OUTSIDE RECORDS SUMMARY | 2022-05-09 19:32 | XMS_ITS | Encounter Summary ---
:1975 Author Organization [employer] Address [address] [place] [address] Care Team Providers Name Role Phone Munira Combs PA-C Primary Care Provider Encounter Details Date Type Department Care Team Description 07/01/2007 Office Visit [place] Contact L Lucero Guth[place] [address] [place] [address] [place], [place] [phone] Social History Tobacco Use Types Packs/Day Years Used Date Smoking Tobacco: Never Assessed Sex Assigned at Date Recorded Female 05/09/2021 7:19 PM CREDIT ADVISOR documented as of this encounter Plan of Treatment Upcoming Encounters Date Type Specialty Care Team Description 05/12/2022 Hospital Encounter Chemo Therapy/Infusion Services 09/15/2022 Telemedicine Gastroenterology Eusebio Haines MD [address] [place] [address] documented as of this encounter Visit Diagnoses Not on filedocumented in this encounter Care Teams Field Assessor Relationship Specialty Start Date End Date Munira Combs PA-C PCP - General 09/25/10 03/14/15 [address] [place], [place] [phone] documented as of this encounter
--- OUTSIDE RECORDS SUMMARY | 2022-05-09 19:32 | XMS_ITS | Encounter Summary ---
:1975 Author [facility] Address [address] [place] [address] Care Team Providers Name Role Phone Sherie Baez PA-C Primary Care Provider Reason for Visit Reason Comments Other Encounter Details Date Type Department Care Team Description 11/06/2007 Telephone [facility] Sherie Falcon PA-C Other [address] [employer] [address] [address] [place] [address] [phone] (Wo rk) Social History Tobacco Use Types Packs/Day Years Used Date Smoking Tobacco: Never Assessed Sex Assigned at Date Recorded Female 05/09/2021 7:19 PM HIGH RISK OB documented as of this encounter Progress Notes Center, Message - 11/06/2007 10:58 AM CDT Phone Note filed by [employer] at 10/12/102050 Author: [employer] Service: (none) Author Type: (none) Filed: 10/12/102050 Note Time: 11/06/071057 Status: Signed Hvac Engineer: [employer] Prescription Refill Please provide enough refills to last until patient's next visit. Comment:- Pharmacy Seq #:-Print to P[facility]Pharmacy Pharmacy Name:-[facility] Pharmacy Street or City:-[facility] Clinician Name:-[facility] Name/Strength:-Dicyclomine 20mg tabs. Sig: Dose/Route/Freq:-Take 1 tab 4 times a day. Quantity & Last Fill:-120 09/02/07 Created on 06Nov2007 10:58am by ANGIE ALVARENGA J On 06Nov2007 11:12am SHERIE BAEZ wrote: Sent. Acknowledged by SHERIE BAEZ on 11:12am RISK OB documented in this encounter Plan of Treatment Upcoming Encounters Date Type Specialty Care Team Description 05/12/2022 Hospital Encounter Chemo Therapy/Infusion Services 09/15/2022 Telemedicine Gastroenterology Eusebio Haines MD [address] [place], [place] [address] documented as of this encounter Visit Diagnoses Not on filedocumented in this encounter Care Teams Machine Ii Cutter Relationship Specialty Start Date End Date Sherie Baez PA-C PCP - General 09/25/10 03/14/15 [address] [place], [place] [phone] documented as of this encounter
--- OUTSIDE RECORDS SUMMARY | 2022-05-09 19:32 | XMS_ITS | Encounter Summary ---
:1975 Author Organization [facility] Address [address] [place] [address] Care Team Providers Name Role Phone Munira Combs PA-C Primary Care Provider Encounter Details Date Type Department Care Team Description 04/04/2007 PN Conversion Only [place] [facility] Munira Rodney PA-C [address] [employer] [address] [address] [place] [address] (Wo rk) Social History Tobacco Use Types Packs/Day Years Used Date Smoking Tobacco: Never Assessed Sex Assigned at Date Recorded Female 05/09/2021 7:19 PM HUMAN SERVICES ASSISTANT documented as of this encounter Plan of Treatment Upcoming Encounters Date Type Specialty Care Team Description 05/12/2022 Hospital Encounter Chemo Therapy/Infusion Services 09/15/2022 Telemedicine Gastroenterology Eusebio Haines MD [address] [place], [place] [address] documented as of this encounter Procedures Procedure [...] Results Pap Smear (04/04/2007 9:09 AM CDT) [facility] gist Method Time Signature PAP Smear SEE TEXT No normal HP CONVERSION Liquid Based range Comment: Patient: IGGY DUARTE ? CERVICAL CYTOLOGY REPORT Pathology # ??[id number] ?Date Obtained: ? Date Received: CYTOLOGIC IMPRESSION: [...] Munira Combs PA-C LAB_1 Performing Organization Address City/[facility]/ZIP Code Phon e Number HP CONVERSION Glucose (04/04/2007 8:50 AM CDT) P athologist Signature Length Of Fast 12.0 Hours HP CONVERSION Lab Glucose 82 60 - 100 HP CONVERSION mg/dL Specimen (Source) Anatomical Collection Method Collection Time Re ceived Time Location / / Volume Laterality 04/04/2007 8:50 AM CDT Munira Combs PA-C LAB_1 Performing Organization Address City/[facility]/ZIP Code Phon e Number HP CONVERSION Lipid Panel and Direct LDL(If Needed) (04/04/2007 8:50 AM CDT) [facility] gist Method Time Signature Length Of Fast [...] on filedocumented in this encounter Care Teams Route Rider Relationship Specialty Start Date End Date Munira Combs PA-C PCP - General 09/25/10 03/14/15 [address] [place] [address] documented as of this encounter
--- OUTSIDE RECORDS SUMMARY | 2022-05-09 19:32 | XMS_ITS | Encounter Summary ---
:1975 Author Organization [employer] Address [address], [place] [address] Care Team Providers Name Role Phone Munira Combs PA-C Primary Care Provider Encounter Details Date Type Department Care Team Description 12/05/2006 PN Conversion Only [facility] CONVERSION Ofe Valle MD Social History Tobacco Use Types Packs/Day Years Used Date Smoking Tobacco: Never Assessed Sex Assigned at Date Recorded Female 05/09/2021 7:19 PM FINISH SANDER documented as of this encounter Plan of Treatment Upcoming Encounters Date Type Specialty Care Team Description 05/12/2022 Hospital Encounter Chemo Therapy/Infusion Services 09/15/2022 Telemedicine Gastroenterology Eusebio Haines MD [address] [place] [address] documented as of this encounter [...] filedocumented in this encounter Care Teams Print Support Specialist Relationship Specialty Start Date End Date Munira Combs PA-C PCP - General 09/25/10 03/14/15 [address] [place] [address] documented as of this encounter
--- OUTSIDE RECORDS SUMMARY | 2022-05-09 19:32 | XMS_ITS | Encounter Summary ---
:1975 Author Organization [employer] Address [address] [place] [address] Care Team Providers Name Role Phone Munira Combs PA-C Primary Care Provider Encounter Details Date Type Department Care Team Description 03/03/2008 PN Conversion Only [facility] CONVERSION Radha Schwartz MD [address] [place] [address] [place] [address] (Wo rk) Social History Tobacco Use Types Packs/Day Years Used Date Smoking Tobacco: Never Assessed Sex Assigned at Date Recorded Female 05/09/2021 7:19 PM HORSE TREKKING GUIDE documented as of this encounter Plan of Treatment Upcoming Encounters Date Type Specialty Care Team Description 05/12/2022 Hospital Encounter Chemo Therapy/Infusion Services 09/15/2022 Telemedicine Gastroenterology Eusebio Haines MD [address] [place], [place] [address] documented as of this encounter Procedures Procedure Name Priority Date/Time Associated Comments Diagnosis URINE CULTURE Routine 03/03/2008 4:06 PM Results for this CDT procedure are i n the results section. URINALYSIS Routine 03/03/2008 9:05 AM Results f or this ROUTINE(MICRO IF POS) CDT proced ure are in the results section. URINALYSIS Routine 03/03/2008 9:05 AM Results f or this MICROSCOPIC CDT procedure are i n the results section. documented in this encounter Results Urine Culture (03/03/2008 4:06 PM CDT) Analysis Performed At [facility] Time Signature Urine Culture SEE TEXT HP CONVERSION Comment: Patient: IGGY DUARTE Culture, Urine ?Collected: ??[id number] ??[id number] Source: Clean Ca ?Processed: ??[id number] ??[id number] Final Report ------ ?[id number] ??[id number] No growth Specimen (Source) Anatomical Collection Method Collection Time Re ceived Time Location / / Volume Laterality 03/03/2008 4:06 PM CDT Radha Schwartz MD LAB_1 Performing Organization Address City/State/ZIP Code Phon e Number HP CONVERSION (ABNORMAL) Urinalysis Routine(Micro If Pos) (03/03/2008 9:05 AM CDT) [facility] Method Time Signature Turbidity Clear No normal HP CONVERSION range pH Urine 7.5 4.5 - 7.5 HP CONVERSION Protein Urine Negative Neg-Trac HP CONVERSION Glucose, Negative Neg-Trac HP CONVERSION Qualitative U Ketones Negative Negative HP CONVERSION U BILI Negative Negative HP CONVERSION Blood Urine Negative Negative HP CONVERSION Nitrite Urine Negative Negative HP CONVERSION Leukocyte Small (A) Negative HP CONVERSION Esterase Urine Urobilinogen Negative 0.2 - 1.0 HP CONVERSION Urine U Specific 1.020 1.005 - 25 HP CONVERSION [place] Specimen (Source) Anatomical Collection Method Collection Time Re ceived Time Location / / Volume Laterality 03/03/2008 9:05 AM CDT Radha Schwartz MD LAB_1 Performing Organization Address City/[facility] Code Phon e Number HP CONVERSION (ABNORMAL) Urinalysis Microscopic (03/03/2008 9:05 AM CDT) [facility] gist Method Time Signature White Blood 10-24/HP (A) 0 - 3 HP CONVERSION Cells Urine Red Blood Negative 0 - 2 HP CONVERSION Cells Urine Specimen (Source) Anatomical Collection Method Collection Time Re ceived Time Location / / Volume Laterality 03/03/2008 9:05 AM CDT Radha Schwartz MD LAB_1 Performing Organization Address City/[facility] Phon e Number HP CONVERSION documented in this encounter Visit Diagnoses Not on filedocumented in this encounter Care Teams Scheduling Clerk Relationship Specialty Start Date End Date Munira Combs PA-C PCP - General 09/25/10 03/14/15 [address] [place] [address] documented as of this encounter
--- OUTSIDE RECORDS SUMMARY | 2022-05-09 19:32 | XMS_ITS | Encounter Summary ---
:1975 Author Organization [facility] Address [address], [place] [address] Care Team Providers Name Role Phone Munira Combs PA-C Primary Care Provider Reason for Visit Reason Comments Other Encounter Details Date Type Department Care Team Description 01/21/2007 Telephone [facility], Message Other [address] [place] [address] Social History Tobacco Use Types Packs/Day Years Used Date Smoking Tobacco: Never Assessed Sex Assigned at Date Recorded Female 05/09/2021 7:19 PM SURGICAL AIDE documented as of this encounter Progress Notes Center, Message - 01/21/2007 10:46 AM CDT Phone Note filed by Cardiac Guard at 10/12/10115 Author: [facility] Service: (none) Author Type: (none) Filed: 10/12/10115 Note Time: 01/21/07 1046 Status: Signed Herb Grower: Cardiac Guard PRESCRIPTION REFILL Request #1: Please provide enough refills to last until patient's next visit. Comment:- Pharmacy Seq #:-Print to P.N.Pharmacy Pharmacy Name:-[facility] Pharmacy Street or City:-[facility] Clinician Name:-[facility] Name/Strength:-Nortrel tabs. Sig: Dose/Route/Freq:-Take [...] Also noted due for Annual / pap. ICAL AIDE documented in this encounter Plan of Treatment Upcoming Encounters Date Type Specialty Care Team Description 05/12/2022 Hospital Encounter Chemo Therapy/Infusion Services 09/15/2022 Telemedicine Gastroenterology Eusebio Haines MD [address] [place] [address] documented as of this encounter Visit Diagnoses Not on filedocumented in this encounter Care Teams Environmental Remediation Consultant Relationship Specialty Start Date End Date Munira Combs PA-C PCP - General 09/25/10 03/14/15 [address] [place], [place] [phone] documented as of this encounter
--- OUTSIDE RECORDS SUMMARY | 2022-05-09 19:32 | XMS_ITS | Encounter Summary ---
:1975 Author Organization [employer] Address [address] [place] [address] Care Team Providers Name Role Phone Munira Combs PA-C Primary Care Provider Encounter Details Date Type Department Care Team Description 08/01/2007 PN Conversion Only [facility] [address] [place], [place] [address] Social History Tobacco Use Types Packs/Day Years Used Date Smoking Tobacco: Never Assessed Sex Assigned at Date Recorded Female 05/09/2021 7:19 PM CONSTRUCTION DRIVER documented as of this encounter Plan of Treatment Upcoming Encounters Date Type Specialty Care Team Description 05/12/2022 Hospital Encounter Chemo Therapy/Infusion Services 09/15/2022 Telemedicine Gastroenterology Eusebio Haines MD [address] [place], [place] [address] documented as of this encounter Procedures Procedure Name Priority Date/Time Associated Diagnosis Comme nts MR ANKLE LT WO IV Routine 08/01/2007 9:46 AM Resu lts for this CONT CONSTRUCTION DRIVER procedure are i n the results section. documented in this encounter Results MR Ankle Lt WO IV Cont (08/01/2007 9:46 AM CONSTRUCTION DRIVER) Anatomical Region Laterality Modality Lower Extremity, Ankle, Foot, Leg, Skeletal, Foot & Ankle Le ft Other Specimen (Source) Anatomical Location Collection Method / Collectio n Time Received Time / Laterality Volume Impressions 08/01/2007 9:46 AM CONSTRUCTION DRIVER : ??Mild soft-tissue thickening at the origin of the deltoid ligament complex anteriorly is likely se condary to previous sprain. No evidence of focal disruption. ??[place] is otherwise negative. [id number]/rr Dictating JOVAN BLUM RADIOLOGIST Narrative 08/01/2007 9:46 AM CONSTRUCTION DRIVER FINDINGS: ??Routine MRI of the left ankle [...] focal disruption. Examina tion is otherwise negative. [id number]/rr Dictating JOVAN BLUM RADIOLOGIST Jovan Soto MD RAD MRI documented in this encounter Visit Diagnoses Not on filedocumented in this encounter Care Teams Skinner Pelts Relationship Specialty Start Date End Date Munira Combs PA-C PCP - General 09/25/10 03/14/15 [address] [place] [address] documented as of this encounter
--- OUTSIDE RECORDS SUMMARY | 2022-05-09 19:32 | XMS_ITS | Encounter Summary ---
:1975 [facility] Address [address] [address] Care Team Providers Name Role Phone Sherie Baez PA-C Primary Care Provider Reason for Visit Reason Comments Other Encounter Details Date Type Department Care Team Description 06/10/2007 Telephone [facility] Sherie Falcon PA-C Other [address] [employer] [address] [place] [address] [place] [address] [phone] (Wo rk) Social History Tobacco Use Types Packs/Day Years Used Date Smoking Tobacco: Never Assessed Sex Assigned at Date Recorded Female 05/09/2021 7:19 PM MACHINE ADJUSTER LEADER CASE TRIM documented as of this encounter [facility], Message - 06/10/2007 12:58 PM CST Phone Note filed by Angelantoni at 10/12/10 1050 Author: Angelantoni Service: (none) Author Type: (none) Filed: 10/12/10 1059 Note Time: 06/10/07 1258 Status: Signed Senior Data Mining Analyst: Angelantoni Prescription Refill Please provide enough refills to last until patient's next visit. Comment:- Pharmacy Seq #:-print to [facility] Pharmacy Name:-[facility] Pharmacy Street or City:-[place] Clinician Name:-A Strong Drug Name/Strength:-Differin 0.1% Gel Sig: Dose/Route/Freq:-apply at bedtime Quantity & Last Fill:-45 02/19/04 Created on 10Jun2007 12:58pm by CATIE AVILEZ On 10Jun2007 1:29pm SHERIE BAEZ wrote: Sent. Acknowledged by SHERIE BAEZ on 1:29pm INE ADJUSTER LEADER CASE TRIM documented in this encounter Plan of Treatment Upcoming Encounters Date Type Specialty Care Team Description 05/12/2022 Hospital Encounter Chemo Therapy/Infusion Services 09/15/2022 Telemedicine Gastroenterology Eusebio Haines MD [address] [place] [address] documented as of this encounter Visit Diagnoses Not on filedocumented in this encounter Care Teams Elementary Educator Relationship Specialty Start Date End Date Sherie Baez PA-C PCP - General 09/25/10 03/14/15 [address] [place], [place] [id number] documented as of this encounter
--- OUTSIDE RECORDS SUMMARY | 2022-05-09 19:32 | XMS_ITS | Encounter Summary ---
:1975 Author Organization [facility] Address [address] [place] [address] Care Team Providers Name Role Phone Munira Combs PA-C Primary Care Provider Encounter Details Date Type Department Care Team Description 02/28/2008 PN Conversion Only NADIA CONVERSION Radha Schwartz MD [address] [place] [address] [place] [address] (Wo rk) Social History Tobacco Use Types Packs/Day Years Used Date Smoking Tobacco: Never Assessed Sex Assigned at Date Recorded Female 05/09/2021 7:19 PM SOFTWARE ENGINEERING SPECIALIST documented as of this encounter Plan of Treatment Upcoming Encounters Date Type Specialty Care Team Description 05/12/2022 Hospital Encounter Chemo Therapy/Infusion Services 09/15/2022 Telemedicine Gastroenterology Eusebio Haines MD [address] [place], [place] [address] documented as of this encounter Procedures Procedure [...] / Volume Laterality 02/28/2008 5:25 PM CDT Rdaha Schwartz MD LAB_1 Performing Organization Address [facility]ZIP [facility] Phon e Number HP CONVERSION ESR (02/28/2008 5:25 PM CDT) Patholo gist Method Time Signature Sedimentation Rate 14 0 - 20 HP CONVERSI ON mm/Hr Specimen (Source) Anatomical Collection Method Collection Time Re ceived Time Location / / Volume Laterality 02/28/2008 5:25 PM CDT Radha Schwartz MD LAB_1 Performing Organization Address [facility] Phon e Number HP CONVERSION documented in this encounter Visit Diagnoses Not on filedocumented in this encounter Care Teams Fish Warden Relationship Specialty Start Date End Date Munira Combs PA-C PCP - General 09/25/10 03/14/15 [address] [place] [address] documented as of this encounter
--- OUTSIDE RECORDS SUMMARY | 2022-05-09 19:32 | XMS_ITS | Encounter Summary ---
:1975 Author Organization [facility] Address [address] [place] [address] Care Team Providers Name Role Phone Sherie Baez PA-C Primary Care Provider Reason for Visit Reason Comments Other Encounter Details Date Type Department Care Team Description 01/21/2007 Telephone [facility] Sherie Falcon PA-C Other [address] [address] [address] [place] [address] [phone] (Wo rk) Social History Tobacco Use Types Packs/Day Years Used Date Smoking Tobacco: Never Assessed Sex Assigned at Date Recorded Female 05/09/2021 7:19 PM STOCK FITTER documented as of this encounter [facility], Message - 01/21/2007 10:42 AM CDT Phone Note filed by Repair Report at 10/12/10115 Author: Repair Report Service: (none) Author Type: (none) Filed: 10/12/10115 Note Time: 01/21/07 1042 Status: Signed Bioinformatics Associate: Repair Report Prescription Refill Please provide enough refills to last until patient's next visit. Comment:- Pharmacy Seq #:-Print to [facility]acy [facility] Street or City:-[facility] Clinician Name:-[facility] Name/Strength:-Phentermine 30mg caps. Sig: Dose/Route/Freq:-Take 1 capsule daily. Quantity & Last Fill:-30 01/21/07 Created on 21Jan2007 10:42am by ANGIE ALVARENGA J On 21Jan2007 11:13am SHERIE BAEZ wrote: Rx sent x 1 month. Needs appt for additional refills. Acknowledged by SHERIE BAEZ on 11:13am K FITTER documented in this encounter Plan of Treatment Upcoming Encounters Date Type Specialty Care Team Description 05/12/2022 Hospital Encounter Chemo Therapy/Infusion Services 09/15/2022 Telemedicine Gastroenterology Eusebio Haines MD [address] [place] [address] documented as of this encounter Visit Diagnoses Not on filedocumented in this encounter Care Teams Motorcycle Fabricator Relationship Specialty Start Date End Date Sherie Baez PA-C PCP - General 09/25/10 03/14/15 [address] [place], [place] [phone] documented as of this encounter
--- OUTSIDE RECORDS SUMMARY | 2022-05-09 19:32 | XMS_ITS | Encounter Summary ---
:1975 Author Organization [facility] [employer] Address [address] [place] [address] Care Team Providers Name Role Phone Munira Combs PA-C Primary Care Provider Reason for Visit Reason Comments Other Encounter Details Date Type Department Care Team Description 03/02/2008 Telephone [facility] Rafita Sanchez LPN Other [address] [place], [place] [phone] Social History Tobacco Use Types Packs/Day Years Used Date Smoking Tobacco: Never Assessed Sex Assigned at Date Recorded Female 05/09/2021 7:19 PM POKER MANAGER documented as of this encounter Progress Notes Rafita Sanchez LPN - 03/02/2008 11:58 AM CDT Phone Note filed by Rafita Cannon at 10/13/10527 Author: Rafita Cannon Service: (none) Author Type: (none) Filed: 10/13/1028 Note Time: 03/02/081157 Status: Signed Associate Brand Manager: Tam Conversion Lab work back on pt. [...] number. Acknowledged by RAFITA CANNON on 5:09pm R MANAGER documented in this encounter Plan of Treatment Upcoming Encounters Date Type Specialty Care Team Description 05/12/2022 Hospital Encounter Chemo Therapy/Infusion Services 09/15/2022 Telemedicine Gastroenterology Eusebio Haines MD [address] [place] [address] documented as of this encounter Visit Diagnoses Not on filedocumented in this encounter Care Teams Plastics Process Hand Relationship Specialty Start Date End Date Munira Combs PA-C PCP - General 09/25/10 03/14/15 [address] [place], [place] [phone] documented as of this encounter"
--- OUTSIDE RECORDS SUMMARY | 2022-05-09 19:32 | XMS_ITS | Encounter Summary ---
:1975 Author [facility] Address [address], [place] [address] Care Team Providers Name Role Phone Sherie Baez PA-C Primary Care Provider Reason for Visit Reason Comments Other Encounter Details Date Type Department Care Team Description 10/24/2007 Telephone [facility] Sherie Falcon PA-C Other [address] [address] [place] [address] [place] [address] [phone] (Wo rk) Social History Tobacco Use Types Packs/Day Years Used Date Smoking Tobacco: Never Assessed Sex Assigned at Date Recorded Female 05/09/2021 7:19 PM ELECTRICAL ACCESSORIES I ASSEMBLER documented as of this encounter [facility], Message - 10/24/2007 1:32 PM CDT Phone Note filed by AVIcode at 10/12/101999 Author: AVIcode Service: (none) Author Type: (none) Filed: 10/12/101999 Note Time: 10/24/07 1332 Status: Signed Cold Type Artist: AVIcode Prescription Refill Please provide enough refills to last until patient's next visit. Comment:- Pharmacy Seq #:-print to [facility] Pharmacy Name:-[facility] Pharmacy Street or City:-[place] Clinician Name:-A Strong Drug Name/Strength:-Differin 0.1% Gel Sig: Dose/Route/Freq:-apply topically to clean dry skin 1 hr before bedtime Quantity & Last Fill:-45 06/10/07 Created on 24Oct2007 1:32pm by CATIE AVILEZ On 24Oct2007 2:47pm SHERIE BAEZ wrote: Sent. Acknowledged by SHERIE BAEZ on 2:47pm TRICAL ACCESSORIES I ASSEMBLER documented in this encounter Plan of Treatment Upcoming Encounters Date Type Specialty Care Team Description 05/12/2022 Hospital Encounter Chemo Therapy/Infusion Services 09/15/2022 Telemedicine Gastroenterology Eusebio Haines MD [address] [place] [address] documented as of this encounter Visit Diagnoses Not on filedocumented in this encounter Care Teams Sales Ledger Clerk Relationship Specialty Start Date End Date Sherie Baez PA-C PCP - General 09/25/10 03/14/15 [address] [place], [place] [phone] documented as of this encounter
--- OUTSIDE RECORDS SUMMARY | 2022-05-09 19:32 | XMS_ITS | Encounter Summary ---
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 Patient prefers a response in ALEN:After hearing success stories on the HCG diet. I was wondering if you have any insites to this diet or what the protocall for the diet is. A few employees are in the process of ordering the medication over seas and from what I have heard, it has been a hit at [facility]. I am interested in trying this diet [...] 1:02pm DUSTY JAIME wrote: message sent through [email or web address] Acknowledged by DUSTY JAIME on 1:02pm R INSTALLATION CREW SUPERVISOR documented in this encounter Plan of Treatment Upcoming Encounters Date Type Specialty Care Team Description 05/12/2022 Hospital Encounter Chemo Therapy/Infusion Services 09/15/2022 Telemedicine Gastroenterology Eusebio Haines MD [address] [place] [address] documented as of this encounter Visit Diagnoses Not on filedocumented in this encounter Care Teams Repair Table Operator Relationship Specialty Start Date End Date Sherie Baez PA-C PCP - General 09/25/10 03/14/15 [address] [place], [place] [phone] documented as of this encounter
--- OUTSIDE RECORDS SUMMARY | 2022-05-09 19:32 | XMS_ITS | Encounter Summary ---
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 Comment:- Pharmacy Seq #:-print to [facility] Pharmacy Name:-[facility] Street or City:-[place] Clinician Name:-Chrissy Combs Drug Name/Strength:-Amitriptyline HCL 25MG tab Sig: Dose/Route/Freq:-take 1-2 tabs every night at bedtime Quantity & Last Fill:-90 09/02/07 Created on 02Sep2007 2:50pm by CATIE AVILEZ On 02Sep2007 5:31pm SMITH NORTH wrote: Renewed medication per medication refill protocol. ACTORY TECHNICIAN documented in this encounter Plan of Treatment Upcoming Encounters Date Type Specialty Care Team Description 05/12/2022 Hospital Encounter Chemo Therapy/Infusion Services 09/15/2022 Telemedicine Gastroenterology Eusebio Haines MD [address] [place] [address] documented as of this encounter Visit Diagnoses Not on filedocumented in this encounter Care Teams Cyanide Case Hardener Relationship Specialty Start Date End Date Munira Combs PA-C PCP - General 09/25/10 03/14/15 [address] [place] [address] documented as of this encounter
--- OUTSIDE RECORDS SUMMARY | 2022-05-09 19:32 | XMS_ITS | Encounter Summary ---
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 documented as of this encounter Plan of Treatment Upcoming Encounters Date Type Specialty Care Team Description 05/12/2022 Hospital Encounter Chemo Therapy/Infusion Services 09/15/2022 Telemedicine Gastroenterology Eusebio Haines MD [address] [place], [place] [address] documented as of this encounter Procedures Procedure [...] Complete Blood Count-W/Diff (03/02/2008 5:06 PM CDT) [facility] Method Time Signature White Blood Cell 8.3 [...] - HP CONVERSION Hemoglobin Conc 36.5 gm/dL [place] RDW 10.9 (L) 11.0 - HP CONVERSION [...] Radha Schwartz MD LAB_1 Performing Organization Address [facility]/ZIP Code Phon e Number HP CONVERSION Alkaline Phosphatase, Total (03/02/2008 5:06 PM CDT) athologist Signature Alk Phos 74 25 - 135 U/L HP CONVERSION Specimen (Source) Anatomical Collection Method Collection Time Re ceived Time Location / / Volume Laterality 03/02/2008 5:06 PM CDT Radha Schwartz MD LAB_1 Performing Organization Address [facility] Phon e Number HP CONVERSION ALT (SGPT) (03/02/2008 5:06 PM CDT) [facility] gist Method Time Signature Alanine 21 4 - 55 HP CONVERSION Aminotransferase U/L Specimen (Source) Anatomical Collection Method Collection Time Re ceived Time Location / / Volume Laterality 03/02/2008 5:06 PM CDT Radha Schwartz MD LAB_1 Performing Organization Address City/[facility]/ZIP Code Phon e Number HP CONVERSION AST (03/02/2008 5:06 PM CDT) [facility] gist Method Time Signature Aspartate 17 0 - 45 HP CONVERSION Aminotransferase U/L Specimen (Source) Anatomical Collection Method Collection Time Re ceived Time Location / / Volume Laterality 03/02/2008 5:06 PM CDT Radha Schwartz MD LAB_1 Performing Organization Address City/[facility]/ZIP Code Phon e Number HP CONVERSION Bilirubin, [...] Radha Schwartz MD LAB_1 Performing Organization Address City/[facility]/ZIP Code Phon e Number HP CONVERSION Creatinine / GFR (03/02/2008 5:06 PM CDT) athologist Signature Creatinine 0.7 0.4 - 1.3 HP CONVERSION Serum mg/dL Est GFR >60 >60 HP CONVERSION Am Comment: -Belarusian and Pkg-Ivrgtfy-Vsoyaai n reference range units: mL/min/1.73m2 Normal>60, moderate [...] Radha Schwartz MD LAB_1 Performing Organization Address City/[facility]/ZIP Code Phon e Number HP CONVERSION Electrolytes [...] Radha Schwartz MD LAB_1 Performing Organization Address City/[facility]/ZIP Code Phon e Number HP CONVERSION JOHAN Screen (03/02/2008 5:06 PM CDT) Analysis Performed At [facility] Time Signature Anti-Nuclear Negative Negative HP CONVERSION Ab Specimen (Source) Anatomical Collection Method Collection Time Re ceived Time Location / / Volume Laterality 03/02/2008 5:06 PM CDT Radha Schwartz MD LAB_1 Performing Organization Address City/[facility] Code Phon e Number HP CONVERSION Calcium (03/02/2008 5:06 PM CDT) athologist Signature Calcium 9.5 8.5 - 10.5 HP CONVERSION mg/dL Specimen (Source) Anatomical Collection Method Collection Time Re ceived Time Location / / Volume Laterality 03/02/2008 5:06 PM CDT Radha Schwartz MD LAB_1 Performing Organization Address City/[facility] Code Phon e Number HP CONVERSION Ssa [...] 5-10% of progressive systemic sclerosis. Performed at [place] [address] 8 Specimen (Source) Anatomical Collection Method Collection Time Re ceived Time Location / / Volume Laterality 03/02/2008 4:33 PM CDT Radha Schwartz MD LAB_1 Performing Organization Address [facility] Phon e Number HP CONVERSION Anti SS-B [...] sclerosis also have this antibody. Performed at [facility] [address] [place] [address] 8 Specimen (Source) Anatomical Collection Method Collection Time Re ceived Time Location / / Volume Laterality 03/02/2008 4:33 PM CDT Radha Schwartz MD LAB_1 Performing Organization Address City/[facility] Phon e Number HP CONVERSION Angiotensin Converting Enzyme-Serum (03/02/2008 4:33 PM CDT) athologist Signature Angiotensin 37 9 - 67 U/L HP CONVERSION Converting Enzyme, Serum Comment: TEST INFORMATION: Angiotensin Converting Enzyme For related information, see [email or web address] Performed at [facility] [address] [place] [address] 8 Specimen (Source) Anatomical Collection Method Collection Time Re ceived Time Location / / Volume Laterality 03/02/2008 4:33 PM CDT Radha Schwartz MD LAB_1 Performing Organization Address City/State/[facility] Code Phon e Number HP CONVERSION documented in this encounter Visit Diagnoses Not on filedocumented in this encounter Care Teams Rn Clinical Appeals Relationship Specialty Start Date End Date Munira Combs PA-C PCP - General 09/25/10 03/14/15 [address] [place] [address] documented as of this encounter
--- OUTSIDE RECORDS SUMMARY | 2022-05-09 19:32 | XMS_ITS | Encounter Summary ---
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 Comment:- Pharmacy Seq #:-PRINT TO [facility] Street or City:-[place] Clinician Name:-Chrissy BAEZ [...] wrote: Renewed medications per medication refill protocol. OR NET DEVELOPER documented in this encounter Plan of Treatment Upcoming Encounters Date Type Specialty Care Team Description 05/12/2022 Hospital Encounter Chemo Therapy/Infusion Services 09/15/2022 Telemedicine Gastroenterology Eusebio Haines MD [address] [place] [address] documented as of this encounter Visit Diagnoses Not on filedocumented in this encounter Care Teams Commercial Intelligence Manager Relationship Specialty Start Date End Date Munira Baez PA-C PCP - General 09/25/10 03/14/15 [address] [place], [place] [id number] documented as of this encounter
--- OUTSIDE RECORDS SUMMARY | 2022-05-09 19:32 | XMS_ITS | Encounter Summary ---
:1975 Author Organization [employer] Address [address] [address] Care Team Providers Name Role Phone Munira Combs PA-C Primary Care Provider Encounter Details Date Type Department Care Team Description 04/04/2007 Office Visit [facility] Munira Falcon PA-C [address] [address] [place] [address] [phone] (Wo rk) Social History Tobacco Use Types Packs/Day Years Used Date Smoking Tobacco: Never Assessed Sex Assigned at Date Recorded Female 05/09/2021 7:19 PM CLEANING MATRON documented as of this encounter Last Filed [...] signed by Munira Combs PA-C at 04/09/07 1309 Author: Munira Combs PA-C Service: (none) Author Type: Physician Lead Technical Writer Filed: 10/14/10 2153 Note Time: 04/04/07 0001 Status: Signed Spring Tier: Munira Combs PA-C (Physician Lead Technical Writer) NAME: IGGY DUARTE MR#: [id number] ACCT: [id number] VISIT: [id number] DICTATING CLINICIAN: SHAKA HELM JOB: [id number] LOC: 502 CLINIC PHYSICAL DATE OF VISIT: [...] Soft, nontender, nondistended. : External genitalia normal. [place] rugated vagina. Nulliparous cervix without lesions. No [...] elevated today. Discussed importance of regular exercise. AMS:[id number] C: 04/05/07 12:47 DOCUMENT: [id number] documented in this encounter Plan of Treatment Upcoming Encounters Date Type Specialty Care Team Description 05/12/2022 Hospital Encounter Chemo Therapy/Infusion Services 09/15/2022 Telemedicine Gastroenterology Eusebio Haines MD [address] [place] [address] documented as of this encounter Visit Diagnoses Not on filedocumented in this encounter Care Teams Human Resources Clerk Relationship Specialty Start Date End Date Munira Combs PA-C PCP - General 09/25/10 03/14/15 [address] [place] [address] documented as of this encounter
--- OUTSIDE RECORDS SUMMARY | 2022-05-09 19:32 | XMS_ITS | Encounter Summary ---
:1975 Author Organization [facility] Address [address] [place] [address] Care Team Providers Name Role Phone Munira Combs PA-C Primary Care Provider Encounter Details Date Type Department Care Team Description 08/06/2007 Office Visit [facility] [place] [address] [place]ill [address] [facility] [place] [address] [phone] (Wo rk) Social History Tobacco Use Types Packs/Day Years Used Date Smoking Tobacco: Never Assessed Sex Assigned at Date Recorded Female 05/09/2021 7:19 PM INDIAN TRADER documented as of this encounter Progress Notes Jovan Soto MD - 08/06/2007 12:01 AM CST Progress Notes signed by Jovan Soto MD at 08/07/07 1604 Author: Jovan Soto MD Service: (none) Author Type: Physician Filed: 10/15/10 0032 Note Time: 08/06/07 0001 Status: Signed Lockstitch Sleeve Maker: Jovan Soto MD (Physician) NAME: IGGY DUARTE MR#: [id number] ACCT: [id number] VISIT: [id number] DICTATING CLINICIAN: JOVAN SOTO MD JOB: [id number] LOC: 511 CLINIC PROGRESS NOTE DATE OF [...] 6 weeks if there is no improvement. [id number] C: 08/06/07 16:27 DOCUMENT: [id number] AN TRADER documented in this encounter Plan of Treatment Upcoming Encounters Date Type Specialty Care Team Description 05/12/2022 Hospital Encounter Chemo Therapy/Infusion Services 09/15/2022 Telemedicine Gastroenterology Eusebio Haines MD [address] [place] [address] documented as of this encounter Visit Diagnoses Not on filedocumented in this encounter Care Teams Ep Tech Relationship Specialty Start Date End Date Munira Combs PA-C PCP - General 09/25/10 03/14/15 [address] [place], [place] [address] documented as of this encounter
--- OUTSIDE RECORDS SUMMARY | 2022-05-09 19:32 | XMS_ITS | Encounter Summary ---
:1975 Author [facility] Address [address], [place] [address] Care Team Providers Name Role Phone Sherie Baez PA-C Primary Care Provider Reason for Visit Reason Comments Other Encounter Details Date Type Department Care Team Description 07/05/2007 Telephone [facility] Sherie Falcon PA-C Other [address] [place] [address] [place] [address] [phone] (Wo rk) Social History Tobacco Use Types Packs/Day Years Used Date Smoking Tobacco: Never Assessed Sex Assigned at Date Recorded Female 05/09/2021 7:19 PM LOGGING TRUCK DRIVER documented as of this encounter Progress Notes Center, Message - 07/05/2007 3:29 PM CST Phone Note filed by C$ cMoney at 10/12/10 1230 Author: C$ cMoney Service: (none) Author Type: (none) Filed: 10/12/10 1230 Note Time: 07/05/07 1529 Status: Signed Manager Marketing Communication: C$ cMoney Prescription Refill Please provide enough refills to last until patient's next visit. Comment:- Pharmacy Seq #:-[facility] Street or City:-[place] Clinician Name:-A Strong Drug Name/Strength:-Chantix Starting Month [...] call back OK to talk to the HI nurse or to schedule appt. Acknowledged by DON SALGUERO on 3:54pm On 15Jul2007 4:14pm DON SALGUERO wrote: Message left for the pt to call back. Acknowledged by DON SALGUERO on 4:14pm On 18Jul2007 10:18am RUDDY VALDES wrote: Nurse Lisa called back transferred [id number] On 18Jul2007 10:30am OMEGA NORWOOD wrote: Sending you AMS. Do see Chantix on med list. Not sure who Nurse Lisa is or where transferred to. On 18Jul2007 11:22am SHERIE BAEZ wrote: We have discussed it. Rx sent. Acknowledged by SHERIE BAEZ on 11:22am ING TRUCK DRIVER documented in this encounter Plan of Treatment Upcoming Encounters Date Type Specialty Care Team Description 05/12/2022 Hospital Encounter Chemo Therapy/Infusion Services 09/15/2022 Telemedicine Gastroenterology Eusebio Haines MD [address] [place] [address] documented as of this encounter Visit Diagnoses Not on filedocumented in this encounter Care Teams Carpenters Helper Relationship Specialty Start Date End Date Sherie Baez PA-C PCP - General 09/25/10 03/14/15 [address] [place], [place] [address] documented as of this encounter
--- OUTSIDE RECORDS SUMMARY | 2022-05-09 19:32 | XMS_ITS | Encounter Summary ---
:1975 Author [facility] Address [address] [place] [address] Care Team Providers Name Role Phone Sherie Baez PA-C Primary Care Provider Reason for Visit Reason Comments Other Encounter Details Date Type Department Care Team Description 03/15/2007 Telephone [facility] Sherie Falcon PA-C Other [address] [address] [place] [address] [phone] (Wo rk) Social History Tobacco Use Types Packs/Day Years Used Date Smoking Tobacco: Never Assessed Sex Assigned at Date Recorded Female 05/09/2021 7:19 PM WAX BLEACHER documented as of this encounter Progress Yara Castro - 03/15/2007 2:26 PM CDT Phone Note filed by Yara Quintanilla at 10/12/10 1194 Author: Yara Quintanilla Service: (none) Author Type: (none) Filed: 10/12/10 3152 Note Time: 03/15/07 1426 Status: Signed Security Assurance Specialist: Tam Conversion PRESCRIPTION REFILL Request #1: Please provide enough refills to last until patient's next visit. Comment:-PT HAS APPT ON 04/04. Pharmacy Seq #:-SEND PRINT TO [facility] Pharmacy Name:-[facility] Pharmacy Street or City:-[facility] Clinician Name:-NESTOR Drug Name/Strength:-DICYCLOMINE 20MG TAB Sig: [...] month. Acknowledged by SHERIE BAEZ on 3:09pm BLEACHER documented in this encounter Plan of Treatment Upcoming Encounters Date Type Specialty Care Team Description 05/12/2022 Hospital Encounter Chemo Therapy/Infusion Services 09/15/2022 Telemedicine Gastroenterology Eusebio Haines MD [address] [place] [address] documented as of this encounter Visit Diagnoses Not on filedocumented in this encounter Care Teams Nurse Practitioner Adult Relationship Specialty Start Date End Date Sherie Baez PA-C PCP - General 09/25/10 03/14/15 [address] [place] [place], [place] [address] documented as of this encounter
--- OUTSIDE RECORDS SUMMARY | 2022-05-09 19:32 | XMS_ITS | Encounter Summary ---
:1975 Author [facility] Address [address] [place] [address] Care Team Providers Name Role Phone Sherie Baez PA-C Primary Care Provider Reason for Visit Reason Comments Other Encounter Details Date Type Department Care Team Description 02/06/2008 Telephone [facility] Sherie Falcon PA-C Other [address] [address] [address] [place] [address] (Wo rk) Social History Tobacco Use Types Packs/Day Years Used Date Smoking Tobacco: Never Assessed Sex Assigned at Date Recorded Female 05/09/2021 7:19 PM CLAY MILLER documented as of this encounter Progress Notes Center, Message - 02/06/2008 2:31 PM CDT Phone Note filed by centrose at 10/13/10337 Author: centrose Service: (none) Author Type: (none) Filed: 10/13/10337 Note Time: 02/06/08 1431 Status: Signed Data Architect Manager: centrose Prescription Refill Please provide enough refills to [...] discuss. Acknowledged by SHERIE BAEZ on 3:26pm MILLER documented in this encounter Plan of Treatment Upcoming Encounters Date Type Specialty Care Team Description 05/12/2022 Hospital Encounter Chemo Therapy/Infusion Services 09/15/2022 Telemedicine Gastroenterology Eusebio Haines MD [address] [place] [address] documented as of this encounter Visit Diagnoses Not on filedocumented in this encounter Care Teams Acid Polymerization Operator Relationship Specialty Start Date End Date Sherie Baez PA-C PCP - General 09/25/10 03/14/15 [address] [place] [place], [place] [address] documented as of this encounter
--- OUTSIDE RECORDS SUMMARY | 2022-05-09 19:33 | XMS_ITS | Encounter Summary ---
:1975 Author Organization [employer] Address [address] [place] [address] Care Team Providers Name Role Phone Munira Combs PA-C Primary Care Provider Encounter Details Date Type Department Care Team Description 12/13/2005 Office Visit [facility] [place] [address] [facility] [address] [place] [address] [place] [address] [phone] (Wo rk) Social History Tobacco Use Types Packs/Day Years Used Date Smoking Tobacco: Never Assessed Sex Assigned at Date Recorded Female 05/09/2021 7:19 PM CLIENT MANAGER documented as of this encounter Last [...] 10/14/10 1218 Note Time: 12/13/052022 Status: Signed Shirt Trimmer: Ayanna Barrera DO (Physician) NAME: IGGY DUARTE MR: [id number] ACCT: [id number] VISIT: [id number] DICTATING CLINICIAN: AYANNA BARRERA DO JOB: [id number] CLINIC PROGRESS NOTE DATE OF VISIT: 12/13/2005 [...] if she worsens or develops new symptoms. [id number] C: 12/15/05 00:14 DOCUMENT: [id number] documented in this encounter Plan of Treatment Upcoming Encounters Date Type Specialty Care Team Description 05/12/2022 Hospital Encounter Chemo Therapy/Infusion Services 09/15/2022 Telemedicine Gastroenterology Eusebio Haines MD [address] [place] [address] documented as of this encounter Procedures Procedure [...] 12/13/2005 9:04 AM CDT : ??Negative chest. 708894/mb Dictating GERI GREENE Radiologist Narrative 12/13/2005 9:04 AM CDT COMPARISON STUDY: ??06/08/05. CLINICAL HISTORY: ??30-year-old female w ith cough. Procedure Note Geri Wiley MD - 08/25/2016Formattin g of this note might be different from the original. COMPARISON STUDY: 06/08/05. CLINICAL HISTORY: 30-year-old female wit h cough. IMPRESSION : Negative chest. [id number]/[facility] Dictating GERI GREENE Radiologist Ayanna Barrera DO RAD GD documented in this encounter Visit Diagnoses Not on filedocumented in this encounter Care Teams Level Glass Forming Machine Operator Relationship Specialty Start Date End Date Munira Combs PA-C PCP - General 09/25/10 03/14/15 2017 [place] [address] documented as of this encounter
--- OUTSIDE RECORDS SUMMARY | 2022-05-09 19:33 | XMS_ITS | Encounter Summary ---
:1975 Author Organization [facility] Address [address] [place] [address] Care Team Providers Name Role Phone Munira Combs PA-C Primary Care Provider Encounter Details Date Type Department Care Team Description 10/02/2005 Office Visit [facility] [place] [address] [place] [address] [place], [place] [address] Social History Tobacco Use Types Packs/Day Years Used Date Smoking Tobacco: Never Assessed Sex Assigned at Date Recorded Female 05/09/2021 7:19 PM STEM ASSEMBLER documented as of this encounter Progress Notes Nataliya Wooten OA - 10/02/2005 12:01 AM CDT Progress Notes signed by NAKIA Brown at 10/31/05 1547 Author: NAKIA Brown Service: (none) Author Type: ORTHOPAEDIC STOCKROOM HELPER Filed: 10/14/10 1048 Note Time: 10/02/05 0001 Status: Signed Group Therapist: NAKIA Brown (ORTHOPAEDIC STOCKROOM HELPER) NAME: IGGY DUARTE MR: [id number] ACCT: [id number] VISIT: [id number] DICTATING CLINICIAN: TOSIN Brown JOB: [id number] CLINIC PROGRESS NOTE DATE OF VISIT: 10/02/2005 [...] limitations. She will follow up with Dr. Stoo in 2 week's time and was instructed to call the clinic if any problems arise. [id number] C: 10/09/05 13:34 DOCUMENT: [id number] documented in this encounter Plan of Treatment Upcoming Encounters Date Type Specialty Care Team Description 05/12/2022 Hospital Encounter Chemo Therapy/Infusion Services 09/15/2022 Telemedicine Gastroenterology Eusebio Haines MD [address] [place] [address] documented as of this encounter Visit Diagnoses Not on filedocumented in this encounter Care Teams Materials Scientist Relationship Specialty Start Date End Date Munira Combs PA-C PCP - General 09/25/10 03/14/15 [address] [place] [address] documented as of this encounter
--- OUTSIDE RECORDS SUMMARY | 2022-05-09 19:33 | XMS_ITS | Encounter Summary ---
:1975 Author Organization [facility] [employer] Address [address] [address] Care Team Providers Name Role Phone Munira Combs PA-C Primary Care Provider Encounter Details Date Type Department Care Team Description 01/06/2005 PN Conversion Only [facility] [address] [place] [address] Social History Tobacco Use Types Packs/Day Years Used Date Smoking Tobacco: Never Assessed Sex Assigned at Date Recorded Female 05/09/2021 7:19 PM EDUCATION TEACHER documented as of this encounter Plan of Treatment Upcoming Encounters Date Type Specialty Care Team Description 05/12/2022 Hospital Encounter Chemo Therapy/Infusion Services 09/15/2022 Telemedicine Gastroenterology Eusebio Haines MD [address] [place] [address] documented as of this encounter [...] ??Small fluid seen at the cu l-de-sac. [id number] Dictating MANPREET BUTT RADIOLOGIST Procedure Note Manpreet House MD - 08/31/2016 Transabdominal and transvaginal images w ere obtained. The uterus is retroverted and measures 8.4 x 4.7 x 5.5 cm. Endometrial stripe is homogeneous measuring 8.3 mm. No polyp o r fibroids. Both ovaries are normal. Small fluid seen at the cul- de-sac. [id number] Dictating MANPREET BUTT RADIOLOGIST Paco Bazzi MD [facility] documented in this encounter Visit Diagnoses Not on filedocumented in this encounter Care Teams Senior Finance Manager Relationship Specialty Start Date End Date Munira Combs PA-C PCP - General 09/25/10 03/14/15 [address] [place] [address] documented as of this encounter
--- OUTSIDE RECORDS SUMMARY | 2022-05-09 19:33 | XMS_ITS | Encounter Summary ---
:1975 Author Organization [facility] Address [address] [place] [address] Care Team Providers Name Role Phone Sherie Baez PA-C Primary Care Provider Reason for Visit Reason Comments Other Encounter Details Date Type Department Care Team Description 11/28/2006 Telephone [facility] Sherie Falcon PA-C Other [address] [address] [address] [place] [address] (Wo rk) Social History Tobacco Use Types Packs/Day Years Used Date Smoking Tobacco: Never Assessed Sex Assigned at Date Recorded Female 05/09/2021 7:19 PM ALARM INVESTIGATOR documented as of this encounter Progress Yara Castro - 11/28/2006 2:56 PM CDT Phone Note filed by Yara Quintanilla at 10/11/102210 Author: Yara Quintanilla Service: (none) Author Type: (none) Filed: 10/11/102210 Note Time: 11/28/06 1456 Status: Signed Medical Staff Coordinator: Tam Conversion Prescription Refill Please provide enough refills to last until patient's next visit. Comment:- Pharmacy Seq #:-SEND PRINT TO [facility] Pharmacy Name:-[facility] Pharmacy Street or City:-[facility] Clinician Name:-NESTOR Drug Name/Strength:-DICUCLOMINE 20MG TAB Sig: Dose/Route/Freq:-TAKE 1 CAPUSLE FOUR TIMES DAILY Quantity & Last Fill:-120 10/24/06 Created on 28Nov2006 2:56pm by YARA QUINTANILLA On 28Nov2006 3:11pm SHERIE BAEZ wrote: Rx sent. Acknowledged by SHERIE BAEZ on 3:11pm M INVESTIGATOR documented in this encounter Plan of Treatment Upcoming Encounters Date Type Specialty Care Team Description 05/12/2022 Hospital Encounter Chemo Therapy/Infusion Services 09/15/2022 Telemedicine Gastroenterology Eusebio Haines MD [address] [place] [address] documented as of this encounter Visit Diagnoses Not on filedocumented in this encounter Care Teams Closed Circuit Screen Watcher Relationship Specialty Start Date End Date Sherie Baez PA-C PCP - General 09/25/10 03/14/15 [address] [place], [place] [address] documented as of this encounter
--- OUTSIDE RECORDS SUMMARY | 2022-05-09 19:33 | XMS_ITS | Encounter Summary ---
:1975 Author Organization [employer] Address [address] [address] Care Team Providers Name Role Phone Munira Combs PA-C Primary Care Provider Encounter Details Date Type Department Care Team Description 06/08/2005 Office Visit Justin Younger PA-C [address] [facility] [place] [address] [place] [address] [phone] (Wo rk) Social History Tobacco Use Types Packs/Day Years Used Date Smoking Tobacco: Never Assessed Sex Assigned at Date Recorded Female 05/09/2021 7:19 PM GRAIN ELEVATOR AGENT documented as of this encounter Last Filed Vital Signs Vital Sign Reading Time Taken Comments Blood Pressure 110/80 06/08/2005 11:23 AM GRAIN ELEVATOR AGENT Pulse 64 06/08/2005 11:23 AM GRAIN ELEVATOR AGENT Temperature - - Respiratory Rate - - Oxygen Saturation - - Inhaled Oxygen Concentration - - Weight 85.3 kg (187 lb 15.8 oz) 06/08/2005 11:23 AM C: 85.3kg GRAIN ELEVATOR AGENT Height - - Body Mass Index - - documented in this encounter Progress Notes Justin Dunaway PA-C - 06/08/2005 12:01 AM CST Progress Notes signed by Justin Dunaway PA-C at 06/09/05 1103 Author: Justin L Shore, PA-C Service: (none) Author Type: Physician V Groove Cutter Filed: 10/14/10 0824 Note Time: 06/08/05 0001 Status: Signed Staff Development Educator: Justin Dunaway PA-C (Physician V Groove Cutter) NAME: IGGY DUARTE MR: [id number] ACCT: [id number] VISIT: [id number] DICTATING CLINICIAN: JUSTIN DUNAWAY PA-C JOB: [id number] CLINIC PROGRESS NOTE DATE OF VISIT: 06/08/2005 SUBJECTIVE: This 30-year-old presents today with swollen ankles and fingers since about this past weekend. She relates that she was in [place], was walking around with jeans on and [...] last couple of weeks especially while in [place]; otherwise, does not smoke on a regular [...] the legs, toes to knees, in a hjdhao-kl-kqszn elastic wrap. She is to keep that on. Will rewrap it for her tomorrow if she needs us to. Elevate the legs whenever seated and should not stand still in 1 spot. She should always be moving around or sitting with her legs elevated. She verbalizes good understanding of an agreement to this plan. FINAL IMPRESSION: Pedal edema. [id number] C: 06/09/05 10:37 DOCUMENT: [id number] N ELEVATOR AGENT documented in this encounter Plan of Treatment Upcoming Encounters Date Type Specialty Care Team Description 05/12/2022 Hospital Encounter Chemo Therapy/Infusion Services 09/15/2022 Telemedicine Gastroenterology Eusebio Haines MD [address] [place] [address] documented as of this encounter Procedures Procedure Name Priority Date/Time Associated Diagnosis Comme nts XR CHEST 2 VIEWS Routine 06/08/2005 12:06 PM Resu lts for this GRAIN ELEVATOR AGENT procedure are i n the results section. documented in this encounter Results XR Chest 2 Views (06/08/2005 12:06 PM GRAIN ELEVATOR AGENT) Anatomical Region Laterality Modality Chest, Lung Other Specimen (Source) Anatomical Location Collection Method / Collectio n Time Received Time / Laterality Volume Narrative 06/08/2005 12:06 PM GRAIN ELEVATOR AGENT Impression: Normal chest. Findings: CH1 The cardiovascular [...] on filedocumented in this encounter Care Teams Travel Journalist Relationship Specialty Start Date End Date Munira Combs PA-C PCP - General 09/25/10 03/14/15 [address] [place], [place] [address] documented as of this encounter
--- OUTSIDE RECORDS SUMMARY | 2022-05-09 19:33 | XMS_ITS | Encounter Summary ---
:1975 Author Organization [employer] Address [address] [address] Care Team Providers Name Role Phone Munira Combs PA-C Primary Care Provider Encounter Details Date Type Department Care Team Description 12/22/2004 Office Visit [facility] Elsa Lopes APRN, [facility] [address] [facility] [address] [place] [address] [place] [address] [phone] (Wo rk) Social History Tobacco Use Types Packs/Day Years Used Date Smoking Tobacco: Never Assessed Sex Assigned at Date Recorded Female 05/09/2021 7:19 PM SPORTS ADMINISTRATOR documented as of this encounter Last [...] this encounter Progress Notes Elsa Lopes APRN, FIELD INSTRUCTOR - 12/22/2004 12:01 AM CDT Progress Notes signed by MICHAEL Garduno at 02/21/05 0653 Author: MICHAEL Garduno Service: (none) Author Type: (none) Filed: 10/14/10 0513 Note Time: 12/22/042022 Status: Signed Per Diem Clerk: MICHAEL Garduno (Nurse Practitioner) NAME: IGGY DUARTE MR: [id number] ACCT: [id number] VISIT: [id number] DICTATING CLINICIAN: ELSA LOPES RN,FIELD INSTRUCTOR JOB: [id number] CLINIC PROGRESS NOTE DATE OF VISIT: 12/22/2004 [...] or discoloration. She has recently seen the buildings painter for evaluation of this low pelvic pain [...] As above, . 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 Is a smoker. OBJECTIVE: VS: BP: 122/68. P: 80. R: 20. Wt: 187 lb. Iggy appears very well, upbeat, alert and oriented. [...] up when flexible sigmoidoscopy available for review. [id number] C: 12/22/04 16:10 DOCUMENT: [id number] documented in this encounter Plan of Treatment Upcoming Encounters Date Type Specialty Care Team Description 05/12/2022 Hospital Encounter Chemo Therapy/Infusion Services 09/15/2022 Telemedicine Gastroenterology Eusebio Haines MD [address] [place] [address] documented as of this encounter Visit Diagnoses Not on filedocumented in this encounter Care Teams Assembly Leader Relationship Specialty Start Date End Date Munira Combs PA-C PCP - General 09/25/10 03/14/15 [address] [place] [address] documented as of this encounter
--- OUTSIDE RECORDS SUMMARY | 2022-05-09 19:33 | XMS_ITS | Encounter Summary ---
:1975 Author Organization [facility] Address [address] [address] Care Team Providers Name Role Phone Sherie Baez PA-C Primary Care Provider Reason for Visit Reason Comments Other Encounter Details Date Type Department Care Team Description 05/14/2006 Telephone [facility] Sherie Falcon PA-C Other [address] [address] [place] [address] [place] [address] [phone] (Wo rk) Social History Tobacco Use Types Packs/Day Years Used Date Smoking Tobacco: Never Assessed Sex Assigned at Date Recorded Female 05/09/2021 7:19 PM SCALE MANAGER documented as of this encounter Progress Notes Center, Message - 05/14/2006 2:02 PM CST Phone Note filed by R&V at 10/11/10 1112 Author: R&V Service: (none) Author Type: (none) Filed: 10/11/10 1112 Note Time: 05/14/06 1402 Status: Signed Film Flat Inspector: R&V Prescription Refill Please provide enough refills to last until patient's next visit. Comment:- Pharmacy Seq #:-send print to [facility] Pharmacy Name:-[facility] Street or City:-[place] Clinician Name:-Sherie Baez Drug Name/Strength:-Phentermine 15MG caps Sig: Dose/Route/Freq:-take one cap daily Quantity & Last Fill:-30 04/13/06 Created on 14May2006 2:02pm by CATIE AVILEZ On 14May2006 2:44pm SHERIE BAEZ wrote: rx sent Acknowledged by SHERIE BAEZ on 2:44pm E MANAGER documented in this encounter Plan of Treatment Upcoming Encounters Date Type Specialty Care Team Description 05/12/2022 Hospital Encounter Chemo Therapy/Infusion Services 09/15/2022 Telemedicine Gastroenterology Eusebio Haines MD [address] [place] [address] documented as of this encounter Visit Diagnoses Not on filedocumented in this encounter Care Teams Elevating Grader Operator Relationship Specialty Start Date End Date Sherie Baez PA-C PCP - General 09/25/10 03/14/15 [address] [place], [place] [address] documented as of this encounter
--- OUTSIDE RECORDS SUMMARY | 2022-05-09 19:33 | XMS_ITS | Encounter Summary ---
:1975 Author Organization [employer] Address [address] [place] [address] Care Team Providers Name Role Phone Munira Combs PA-C Primary Care Provider Encounter Details Date Type Department Care Team Description 12/13/2005 PN Conversion Only [place] [address] [place] [address] [place] [address] (Wo rk) Social History Tobacco Use Types Packs/Day Years Used Date Smoking Tobacco: Never Assessed Sex Assigned at Date Recorded Female 05/09/2021 7:19 PM BREAD RACKER documented as of this encounter Plan of Treatment Upcoming Encounters Date Type Specialty Care Team Description 05/12/2022 Hospital Encounter Chemo Therapy/Infusion Services 09/15/2022 Telemedicine Gastroenterology Eusebio Haines MD [address] [place] [address] documented as of this encounter Visit Diagnoses Not on filedocumented in this encounter Care Teams Motorcycle Racer Relationship Specialty Start Date End Date Munira Combs PA-C PCP - General 09/25/10 03/14/15 [address] [place], [place] [id number] documented as of this encounter
--- OUTSIDE RECORDS SUMMARY | 2022-05-09 19:33 | XMS_ITS | Encounter Summary ---
:1975 Author Organization [employer] Address [address], [place] [address] Care Team Providers Name Role Phone Munira Combs PA-C Primary Care Provider Reason for Visit Reason Comments Other Encounter Details Date Type Department Care Team Description 12/05/2005 Telephone [facility], Message Other [address] [place], [place] [address] Social History Tobacco Use Types Packs/Day Years Used Date Smoking Tobacco: Never Assessed Sex Assigned at Date Recorded Female 05/09/2021 7:19 PM BIOFUELS PRODUCTION MANAGER documented as of this encounter [facility], Message - 12/05/2005 11:35 AM CDT Phone Note filed by [employer] at 10/11/10510 Author: [employer] Service: (none) Author Type: (none) Filed: 10/11/10510 Note Time: 12/05/05 1130 Status: Signed Card Grader: [employer] PRESCRIPTION REFILL Please provide enough refills to last until patient's next visit. Comment:- Pharmacy Seq #:-send print to [facility] Name:-[facility] Street or City:-[place] Clinician Name:-Gordon Daniels Drug Name/Strength:-Dicyclomine 20MG tab Sig:-take one tab 4 times daily Quantity:-120 Last Fill:-12/04/05 Created on 05Dec2005 11:35am by CATIE AVILEZ On 05Dec2005 1:47pm CARMEN DANIELS wrote: Declined.pt needs f/u appointment. Acknowledged by CARMEN DANIELS on 1:47pm Acknowledged by DUSTY QUINONES on 2:02pm On 05Dec2005 2:51pm MAE CORTES wrote: In valid numbers Acknowledged by MAE CORTES on 2:51pm UELS PRODUCTION MANAGER documented in this encounter Plan of Treatment Upcoming Encounters Date Type Specialty Care Team Description 05/12/2022 Hospital Encounter Chemo Therapy/Infusion Services 09/15/2022 Telemedicine Gastroenterology Eusebio Haines MD [address] [place] [address] documented as of this encounter Visit Diagnoses Not on filedocumented in this encounter Care Teams Informatica Developer Relationship Specialty Start Date End Date Munira Combs PA-C PCP - General 09/25/10 03/14/15 [address] [place], [place] [phone] documented as of this encounter
--- OUTSIDE RECORDS SUMMARY | 2022-05-09 19:33 | XMS_ITS | Encounter Summary ---
:1975 Author Organization [facility] Address [address] [place] [address] Care Team Providers Name Role Phone Munira Combs PA-C Primary Care Provider Encounter Details Date Type Department Care Team Description 09/07/2005 Office Visit [facility] [place] [address] [place] [address] [place] [address] [phone] (Wo rk) Social History Tobacco Use Types Packs/Day Years Used Date Smoking Tobacco: Never Assessed Sex Assigned at Date Recorded Female 05/09/2021 7:19 PM DATA MANAGEMENT SPECIALIST documented as of this encounter Progress Notes Jovan Soto MD - 09/07/2005 12:01 AM CST Progress Notes signed by Jovan Soto MD at 09/07/05 1200 Author: Jovan Soto MD Service: (none) Author Type: Physician Filed: 10/14/10 1017 Note Time: 09/07/05 0001 Status: Signed Sat Instructor: Jovan Soto MD (Physician) NAME: IGGY DUARTE MR: [id number] ACCT: [id number] VISIT: [id number] DICTATING CLINICIAN: JOVAN SOTO MD JOB: [id number] CLINIC PROGRESS NOTE DATE OF VISIT: 09/07/2005 [...] and benefits were discussed with her today. MKT:[id number] C: 09/07/05 10:31 DOCUMENT: [id number] MANAGEMENT SPECIALIST documented in this encounter Plan of Treatment Upcoming Encounters Date Type Specialty Care Team Description 05/12/2022 Hospital Encounter Chemo Therapy/Infusion Services 09/15/2022 Telemedicine Gastroenterology Eusebio Haines MD [address] [place] [address] documented as of this encounter Visit Diagnoses Not on filedocumented in this encounter Care Teams Wing Scorer Relationship Specialty Start Date End Date Munira Combs PA-C PCP - General 09/25/10 03/14/15 [address] [place] [address] documented as of this encounter
--- OUTSIDE RECORDS SUMMARY | 2022-05-09 19:33 | XMS_ITS | Encounter Summary ---
:1975 Author Organization [employer] Address [address] [place] [address] Care Team Providers Name Role Phone Munira Combs PA-C Primary Care Provider Encounter Details Date Type Department Care Team Description 09/22/2005 PN Conversion Only [facility] Sukhi Soto MD [address] [place] [address] [place], [place] [phone] ( Work) [address] Social History Tobacco Use Types Packs/Day Years Used Date Smoking Tobacco: Never Assessed Sex Assigned at Date Recorded Female 05/09/2021 7:19 PM FEATHEREDGER AND REDUCER MACHINE documented as of this encounter Plan of Treatment Upcoming Encounters Date Type Specialty Care Team Description 05/12/2022 Hospital Encounter Chemo Therapy/Infusion Services 09/15/2022 Telemedicine Gastroenterology Eusebio Haines MD [address] [place], [place] [address] documented as of this encounter Visit Diagnoses Not on filedocumented in this encounter Care Teams Cutter Machine Tender Relationship Specialty Start Date End Date Munira Combs PA-C PCP - General 09/25/10 03/14/15 [address] [place] [address] documented as of this encounter
--- OUTSIDE RECORDS SUMMARY | 2022-05-09 19:33 | XMS_ITS | Encounter Summary ---
:1975 Author Organization [email or web address] Address [address] [place] [address] Care Team Providers Name Role Phone Munira Combs PA-C Primary Care Provider Encounter Details Date Type Department Care Team Description 06/22/2006 Office [facility] [place] [address] [place] [address] [place] [address] [phone] Social History Tobacco Use Types Packs/Day Years Used Date Smoking Tobacco: Never Assessed Sex Assigned at Date Recorded Female 05/09/2021 7:19 PM AUTOMOTIVE REFINISHER documented as of this encounter Plan of Treatment Upcoming Encounters Date Type Specialty Care Team Description 05/12/2022 Hospital Encounter Chemo Therapy/Infusion Services 09/15/2022 Telemedicine Gastroenterology Eusebio Haines MD [address] [place] [address] documented as of this encounter Visit Diagnoses Not on filedocumented in this encounter Care Teams Staff Development Manager Relationship Specialty Start Date End Date Munira Combs PA-C PCP - General 09/25/10 03/14/15 [address] [place], [place] [phone] documented as of this encounter
--- OUTSIDE RECORDS SUMMARY | 2022-05-09 19:33 | XMS_ITS | Encounter Summary ---
:1975 Author Organization [employer] Address [address] [place] [address] Care Team Providers Name Role Phone Munira Combs PA-C Primary Care Provider Encounter Details Date Type Department Care Team Description 09/22/2005 Hospital Encounter [facility]V [facility] Jovan Soto MD [address] [facility] [address] [place] [id number] [address] BLJovan King MD [address] [facility] [address] [place] [address] [place] [address] Social History Tobacco Use Types Packs/Day Years Used Date Smoking Tobacco: Never Assessed Sex Assigned at Date Recorded Female 05/09/2021 7:19 PM HOOF TRIMMER documented as of this encounter Medications at [...] signed by Jovan Soto MD at 10/01/05 7539 Author: Jovan Soto MD Service: (none) Author Type: Physician Filed: 10/14/10 1037 Note Time: 09/22/05 1555 Status: Signed Coal Handler: Jovan Soto MD (Physician) NAME: IGGY DUARTE MR: [id number] ACCT: [id number] AUTHENTICATING CLINICIAN: JOVAN SOTO MD JOB: [id number] OPERATIVE REPORT DATE OF OPERATION: 09/22/05 INDICATIONS FOR PROCEDURE: This 30-year-old woman presented with a cyst on the dorsum of her left wrist. After discussion of treatment options, benefits and risks, she elected to proceed with surgical excision. PREOPERATIVE DIAGNOSIS: Left wrist ganglion cyst. POSTOPERATIVE DIAGNOSIS: Left wrist ganglion cyst. PROCEDURE PERFORMED: Cyst excision, left wrist. SURGEON: JOVAN SOTO MD STATE [employer]AL [employer]ATIONS DEPUTY DIRECTOR: CLARITA MUNOZ ANESTHESIA: Ixonia block. BLOOD LOSS: Minimal. COMPLICATIONS: None. FINDINGS: DESCRIPTION OF OPERATION: Informed consent was obtained. A Ixonia block anesthetic was placed and the left [...] closed and sterile dressings were applied. The Joan block anesthetic was released and the patient was taken to recovery in stable condition. Sponge and needle counts were correct. Blood loss was minimal. There were no complications. MKT:[id number] C: 09/25/05 08:31 DOCUMENT: [id number] documented in this encounter Miscellaneous Notes Miscellaneous - Jovan Soto MD - 09/22/2005 12:01 AM CST ICD-9-CM ICD-9-CM Narrative description Code ======== DIAGNOSES Principal: GANGLION OF JOINT 727.41 PROCEDURES Provider1 Date Principal: EXC LES TEND SHEATH HAND JOVAN SOTO [id number] 82.21 Provider2: Provider3: KLEVER LOPEZ III TRIMMER documented in this encounter Plan of Treatment Upcoming Encounters Date Type Specialty Care Team Description 05/12/2022 Hospital Encounter Chemo Therapy/Infusion Services 09/15/2022 Telemedicine Gastroenterology Eusebio Haines MD [address] [place] [address] documented as of this encounter Visit Diagnoses Not on filedocumented in this encounter Care Teams Roof Promenade Tile Setter Relationship Specialty Start Date End Date Munira Combs PA-C PCP - General 06/30/04 09/24/10 [address] [place] [address] documented as of this encounter
--- OUTSIDE RECORDS SUMMARY | 2022-05-09 19:33 | XMS_ITS | Encounter Summary ---
:1975 Author Organization [employer] Address [address], [place] [address] Care Team Providers Name Role Phone Munira Combs PA-C Primary Care Provider Encounter Details Date Type Department Care Team Description 07/02/2006 Office Visit [facility] [place] [address] [address] [place], [place] [phone] Social History Tobacco Use Types Packs/Day Years Used Date Smoking Tobacco: Never Assessed Sex Assigned at Date Recorded Female 05/09/2021 7:19 PM MANAGER STATISTICAL PROGRAMMING documented as of this encounter Last Filed Vital Signs Vital Sign Reading Time Taken Comments Blood Pressure 147/76 07/02/2006 9:29 AM MANAGER STATISTICAL PROGRAMMING Pulse 125 07/02/2006 9:29 AM MANAGER STATISTICAL PROGRAMMING Temperature 37.4 ??C (99.3 ??F) 07/02/2006 9:29 AM MANAGER STATISTICAL PROGRAMMING C: 37 .4 C Respiratory Rate 16 07/02/2006 9:29 AM MANAGER STATISTICAL PROGRAMMING Oxygen Saturation 98% 07/02/2006 9:29 AM MANAGER STATISTICAL PROGRAMMING Inhaled Oxygen Concentration - - Weight - - Height - - Body Mass Index - - documented in this encounter Progress Notes Gilson Rose MD - 07/02/2006 12:01 AM CST Progress Notes signed by Gilson Rose MD at 07/28/06 1800 Author: Gilson Rose MD Service: (none) Author Type: Physician Filed: 10/14/10 1613 Note Time: 07/02/06 0001 Status: Signed Phone Banker: Gilson Rose MD (Physician) NAME: IGGY DUARTE MR#: [id number] ACCT: [id number] VISIT: [id number] DICTATING CLINICIAN: Gilson Rose MD JOB: [id number] LOC: 520 CLINIC PROGRESS NOTE DATE OF VISIT: 07/02/2006 SUBJECTIVE: : 1975. Patient is here for coughing. She is otherwise apparently fairly healthy. She does smoke but it seems to be intermittent, part-time, has not been addicted to it quite yet. She states she coughed so hard last night that she broke a blood vessel in her left eye. OBJECTIVE: VS: BP: 147/76. T: 99.3. P: 125. R: 16. Head, eyes, ears, nose and throat: She does have a subconjunctival hematoma. Eye is not painful otherwise. Ears, nose and throat are otherwise negative. NECK: Negative. CHEST/LUNGS: Clear. Patient, however, did have a wet cough and an increased pulse and slightly diaphoretic. ASSESSMENT: Acute bronchitis. PLAN: Push fluids. Azithromycin TRI-MARGARET. Recheck if symptoms not resolving in 5 to 7 days. [id number]:[id number] C: 07/03/06 17:06 DOCUMENT: [id number] GER STATISTICAL PROGRAMMING documented in this encounter Plan of Treatment Upcoming Encounters Date Type Specialty Care Team Description 05/12/2022 Hospital Encounter Chemo Therapy/Infusion Services 09/15/2022 Telemedicine Gastroenterology Eusebio Haines MD [address] [place] [address] documented as of this encounter Visit Diagnoses Not on filedocumented in this encounter Care Teams Colorman Relationship Specialty Start Date End Date Munira Combs PA-C PCP - General 09/25/10 03/14/15 [address] [place], [place] [address] documented as of this encounter
--- OUTSIDE RECORDS SUMMARY | 2022-05-09 19:33 | XMS_ITS | Encounter Summary ---
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 documented as of this encounter Plan of Treatment Upcoming Encounters Date Type Specialty Care Team Description 05/12/2022 Hospital Encounter Chemo Therapy/Infusion Services 09/15/2022 Telemedicine Gastroenterology Eusebio Haines MD [address] [place], [place] [address] documented as of this encounter Procedures Procedure [...] DUARTE Sexually Trans Disease Probe @ ?Collected: ??[id number] ??[id number] Source: ENDOCERV ?Processed: ??[id number] ??[id number] Final Report ------ ?[id number] ??[id number] No Chlamydia trachomatis detected by amp lified DNA assay No Neisseria gonorrhoeae detected by amp lified DNA assay NOTE: The [employer] Amplified DNA assay s hould not be used for the evaluation of suspected se xual abuse or for other medico-legal indications. Add itional testing is recommended in any circumstance when false positive or ??false negative results could lead to adverse medical, social, or psychological conse quences. @ = Sexually Trans Disease Probe Perform ed at ??[address] [facility], ?[place] [address] Specimen (Source) Anatomical Collection Method Collection Time Re ceived Time Location / / Volume Laterality 12/22/2004 9:09 AM CDT Elsa Lopes APRN, CNP LAB_1 Performing Organization Address City/State/ZIP Code Phon e Number HP CONVERSION Wet Prep (12/22/2004 9:08 AM CDT) P athologist Signature Wet Prep SEE TEXT HP CONVERSION Comment: Patient: IGGY DUARTE Wet Prep @ ?Collected: ??[id number] ??[id number] Source: Vaginal ? Processed: ??[id number] ??[id number] Final Report ------ Many WBCs seen Many epithelial cells seen No Trichomonas seen No yeast seen No clue cells seen @ = WET PREP Performed at ??[address] [place], [place] ??[address] Specimen (Source) Anatomical Collection Method Collection Time Re ceived Time Location / / Volume Laterality 12/22/2004 9:08 AM CDT Elsa Moses GRANT CNP LAB_1 Performing Organization Address City/State/ZIP Code Phon e Number HP CONVERSION documented in this encounter Visit Diagnoses Not on filedocumented in this encounter Care Teams Service Tech Relationship Specialty Start Date End Date Munira Combs PA-C PCP - General 09/25/10 03/14/15 [address] [place] [address] documented as of this encounter
--- OUTSIDE RECORDS SUMMARY | 2022-05-09 19:33 | XMS_ITS | Encounter Summary ---
:1975 Author Organization [employer] Address [address] [place] [address] Care Team Providers Name Role Phone Munira Combs PA-C Primary Care Provider Encounter Details Date Type Department Care Team Description 06/08/2005 PN Conversion Only NADIA Justin Lutz PA-C [address] [place] [address] [place] [address] (Wo rk) Social History Tobacco Use Types Packs/Day Years Used Date Smoking Tobacco: Never Assessed Sex Assigned at Date Recorded Female 05/09/2021 7:19 PM AMERICAN BOARD CERTIFIED ORTHOTIST documented as of this encounter Plan of Treatment Upcoming Encounters Date Type Specialty Care Team Description 05/12/2022 Hospital Encounter Chemo Therapy/Infusion Services 09/15/2022 Telemedicine Gastroenterology Eusebio Haines MD [address] [place], [place] [address] documented as of this encounter Procedures Procedure Name Priority Date/Time Associated Comments Diagnosis URINALYSIS COMPLETE Routine 06/08/2005 12:00 PM R esults for this AMERICAN BOARD CERTIFIED ORTHOTIST procedure are i n the results section. CREATININE / GFR Routine 06/08/2005 12:00 PM Resu lts for this AMERICAN BOARD CERTIFIED ORTHOTIST procedure are i n the results section. ANTI-STREPTOLYSIN O Routine 06/08/2005 12:00 PM R esults for this AMERICAN BOARD CERTIFIED ORTHOTIST procedure are i n the results section. ALT (SGPT) Routine 06/08/2005 12:00 PM Results for this AMERICAN BOARD CERTIFIED ORTHOTIST procedure are i n the results section. AST Routine 06/08/2005 12:00 PM Results for this AMERICAN BOARD CERTIFIED ORTHOTIST procedure are i n the results section. BUN Routine 06/08/2005 12:00 PM Results for this AMERICAN BOARD CERTIFIED ORTHOTIST procedure are i n the results section. ALBUMIN Routine 06/08/2005 12:00 PM Results for this AMERICAN BOARD CERTIFIED ORTHOTIST procedure are i n the results section. documented in this encounter Results (ABNORMAL) Urinalysis Complete (06/08/2005 12:00 PM AMERICAN BOARD CERTIFIED ORTHOTIST) Patholo gist Method Time Signature Glucose, Negative Neg-Trac HP CONVERSION Qualitative U Protein Urine Negative Neg-Trac HP CONVERSION Ketones Negative Negative HP CONVERSION U BILI Negative Negative HP CONVERSION U Specific 1.025 1.005 - 25 HP CONVERSION [place] Blood Urine Moderate Negative HP CONVERSION (A) [...] / / Volume Laterality 06/08/2005 12:00 PM AMERICAN BOARD CERTIFIED ORTHOTIST Justin Dunaway PA-C LAB_1 Performing Organization Address City/State/ZIP Code Phon e Number HP CONVERSION Anti-Streptolysin O (06/08/2005 12:00 PM AMERICAN BOARD CERTIFIED ORTHOTIST) Analysis Performed At Patho logist Time Signature Streptolysin O 176 0 - 330 HP CONVERSION Antibody IU/mL Specimen (Source) Anatomical Collection Method Collection Time Re ceived Time Location / / Volume Laterality 06/08/2005 12:00 PM AMERICAN BOARD CERTIFIED ORTHOTIST Justin Dunaway PA-C LAB_1 Performing Organization Address City/State/ZIP Code Phon e Number HP CONVERSION Creatinine / GFR (06/08/2005 12:00 PM AMERICAN BOARD CERTIFIED ORTHOTIST) athologist Signature Creatinine 0.7 0.5 - 1.5 HP CONVERSION Serum mg/dL Specimen (Source) Anatomical Collection Method Collection Time Re ceived Time Location / / Volume Laterality 06/08/2005 12:00 PM AMERICAN BOARD CERTIFIED ORTHOTIST Justin Dunaway LUPILLOZitaC LAB_1 Performing Organization Address City/[facility]/ZIP Code Phon e Number HP CONVERSION BUN (06/08/2005 12:00 PM AMERICAN BOARD CERTIFIED ORTHOTIST) athologist Signature Blood Urea 8 5 - 26 HP CONVERSION Nitrogen mg/dL Specimen (Source) Anatomical Collection Method Collection Time Re ceived Time Location / / Volume Laterality 06/08/2005 12:00 PM AMERICAN BOARD CERTIFIED ORTHOTIST Justin Dunaway LUPILLO-C LAB_1 Performing Organization Address City/[facility]/ZIP Code Phon e Number HP CONVERSION AST (06/08/2005 12:00 PM AMERICAN BOARD CERTIFIED ORTHOTIST) [facility] Method Time Signature Aspartate 18 0 - 45 HP CONVERSION Aminotransferase U/L Specimen (Source) Anatomical Collection Method Collection Time Re ceived Time Location / / Volume Laterality 06/08/2005 12:00 PM AMERICAN BOARD CERTIFIED ORTHOTIST Justin Dunaway LUPILLO-C LAB_1 Performing Organization Address City/[facility]/ZIP Code Phon e Number HP CONVERSION ALT (SGPT) (06/08/2005 12:00 PM AMERICAN BOARD CERTIFIED ORTHOTIST) [facility] Method Time Signature Alanine 29 0 - 65 HP CONVERSION Aminotransferase U/L Specimen (Source) Anatomical Collection Method Collection Time Re ceived Time Location / / Volume Laterality 06/08/2005 12:00 PM AMERICAN BOARD CERTIFIED ORTHOTIST Justin King Gume WESLEY-C LAB_1 Performing Organization Address City/[facility]/ZIP Code Phon e Number HP CONVERSION Albumin (06/08/2005 12:00 PM AMERICAN BOARD CERTIFIED ORTHOTIST) athologist Signature Albumin 3.4 3.0 - 5.0 HP CONVERSION g/dL Specimen (Source) Anatomical Collection Method Collection Time Re ceived Time Location / / Volume Laterality 06/08/2005 12:00 PM AMERICAN BOARD CERTIFIED ORTHOTIST Justin Dunaway LUPILLOZitaC LAB_1 Performing Organization Address City/[facility]/ZIP Code Phon e Number HP CONVERSION documented in this encounter Visit Diagnoses Not on filedocumented in this encounter Care Teams Cable Installation Technician Relationship Specialty Start Date End Date Munira Combs PA-C PCP - General 09/25/10 03/14/15 [address] [place] [address] documented as of this encounter
--- OUTSIDE RECORDS SUMMARY | 2022-05-09 19:33 | XMS_ITS | Encounter Summary ---
:1975 Author Organization [employer] Address [address] [place] [address] Care Team Providers Name Role Phone Munira Combs PA-C Primary Care Provider Reason for Visit Reason Comments Other Encounter Details Date Type Department Care Team Description 05/08/2005 Telephone [facility], Message Other [address] [place] [address] Social History Tobacco Use Types Packs/Day Years Used Date Smoking Tobacco: Never Assessed Sex Assigned at Date Recorded Female 05/09/2021 7:19 PM BIRTH ATTENDANT documented as of this encounter Progress Notes Araceli Still - 05/08/2005 8:44 AM CST Phone Note filed by Araceli Still RN at 10/10/10 9038 Author: Araceli Still RN Service: (none) Author Type: (none) Filed: 10/10/10 6288 Note Time: 05/08/05 0844 Status: Signed Ship Captain: Araceli Still RN (Registered Nurse) Pt saw [...] Dr Schuster had mentioned Amitriptyline. 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 Pharm is [facility]. Idania's extension is [phone]. Created on 08May2005 8:44am by ARACELI STILL On 08May2005 9:59am ELLIE MANRIQUE wrote: amitriptylene 25mg, 1-2 @ hs; 3 refills, #60 Acknowledged by ELLIE MANRIQUE on 9:59am On 08May2005 10:41am PARVIN DALEY wrote: Rx printed at [facility], pt notified. H ATTENDANT documented in this encounter Plan of Treatment Upcoming Encounters Date Type Specialty Care Team Description 05/12/2022 Hospital Encounter Chemo Therapy/Infusion Services 09/15/2022 Telemedicine Gastroenterology Ellie Haines MD [address] [place] [address] documented as of this encounter Visit Diagnoses Not on filedocumented in this encounter Care Teams Ore Dryer Relationship Specialty Start Date End Date Munira Combs PA-C PCP - General 09/25/10 03/14/15 [address] [place], [place] [address] documented as of this encounter
--- OUTSIDE RECORDS SUMMARY | 2022-05-09 19:33 | XMS_ITS | Encounter Summary ---
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 documented as of this encounter Progress Notes Justin Dunaway PA-C - 06/13/2005 3:04 PM CST Phone Note filed by Justin Dunaway PA-C at 10/10/10 6211 Author: Justin Dunaway PA-C Service: (none) Author Type: Physician Wind Energy Engineer Filed: 10/10/10 0786 Note Time: 06/13/05 2499 Status: Signed Core Analyst: Justin Dunaway PA-C (Physician Wind Energy Engineer) Spoke with Idania and gave her normal LFTs, BUN/creatinine, Albumin, and ASO results; however, 10-24 WBCs, pos Leuk Est, and bacteria in Urine, so will treat for asymptomatic UTI with Cipro 500 mg 1 po bid x 3 days, prescription faxed to [facility] pharmacy. Her edema has resolved and she is feeling well with no residual symptoms. Created on 13Jun2005 3:04pm by JUSTIN DUNAWAY N PERFORMANCE TECHNOLOGIST documented in this encounter Plan of Treatment Upcoming Encounters Date Type Specialty Care Team Description 05/12/2022 Hospital Encounter Chemo Therapy/Infusion Services 09/15/2022 Telemedicine Gastroenterology Eusebio Haines MD [address] [place] [address] documented as of this encounter Visit Diagnoses Not on filedocumented in this encounter Care Teams Staffing Associate Relationship Specialty Start Date End Date Munira Combs PA-C PCP - General 09/25/10 03/14/15 [address] [place], [place] [phone] documented as of this encounter
--- OUTSIDE RECORDS SUMMARY | 2022-05-09 19:33 | XMS_ITS | Encounter Summary ---
:1975 Author Organization [employer] Address [address], [place] [address] Care Team Providers Name Role Phone Munira Combs PA-C Primary Care Provider Encounter Details Date Type Department Care Team Description 02/08/2006 Office Visit [facility] Munira Falcon PA-C [address] [address] [place] [address] [phone] (Wo rk) Social History Tobacco Use Types Packs/Day Years Used Date Smoking Tobacco: Never Assessed Sex Assigned at Date Recorded Female 05/09/2021 7:19 PM SUPERVISOR INTERNATIONAL RESERVATIONS documented as of this encounter Last Filed [...] 02/08/2006 12:01 AM CDT H&P signed by Muniar Combs PA-C at 02/08/06 5247 Author: Munira Combs PA-C Service: (none) Author Type: Physician Molder Meat Filed: 10/14/10 3159 Note Time: 02/08/06 0001 Status: Signed Manager Travel: Munira Combs PA-C (Physician Molder Meat) Preventive Exam & Pelvic IMPRESSION: Routine preventive exam. Obesity. Smoking. SUBJECTIVE: Patient presents for a routine preventive physical and pelvic exam. Requests OCP refill Current contraception: OCP's Patient is satisfied with her current method of contraception Wants to try phentermine. Has tried Xenical and Meridia and they didn't help. 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 has never been . Pap [...] and updated on the Health Profile of [employer]. Current Medications: Reviewed today and updated on Health Profile in [employer]. Family History: (First degree family members) No premature ASCVD. No breast CA. No colon CA. No diabetes Mellitus. No DVT, Pulmonary Embolism or Stroke. Social History: Employment status: Employed. 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 Duration [...] adenopathy. Pelvic: Normal external genitalia and urethra. [place], moist vaginal and cervical mucosa, without lesions. [...] discussed. Rx phentermine 15 mg daily. Recommended mortgage coordinator. Cut out fast food, eat dinner earlier, [...] 09/15/2022 Telemedicine Gastroenterology Eusebio Haines MD [address] [place] [address] documented as of this encounter Visit Diagnoses Not on filedocumented in this encounter Care Teams Grommet Man Relationship Specialty Start Date End Date Munira Combs PA-C PCP - General 09/25/10 03/14/15 [address] [place] [address] documented as of this encounter
--- OUTSIDE RECORDS SUMMARY | 2022-05-09 19:33 | XMS_ITS | Encounter Summary ---
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 calling [...] with you first. Please call her at [phone] after 1 p.m. (This is the pharmacy at the [place] office.) Created on 16Jan2005 12:19pm by ELEAZAR SOTO [...] shortly. Acknowledged by CESAR INTERIANO on 3:22pm CLE MONITOR TECHNICIAN documented in this encounter Plan of Treatment Upcoming Encounters Date Type Specialty Care Team Description 05/12/2022 Hospital Encounter Chemo Therapy/Infusion Services 09/15/2022 Telemedicine Gastroenterology Eusebio Haines MD [address] [place] [address] documented as of this encounter Visit Diagnoses Not on filedocumented in this encounter Care Teams Pet Care Assistant Relationship Specialty Start Date End Date Munira Combs PA-C PCP - General 09/25/10 03/14/15 [address] [place], [place] [phone] documented as of this encounter
--- OUTSIDE RECORDS SUMMARY | 2022-05-09 19:33 | XMS_ITS | Encounter Summary ---
:1975 Author Organization [facility] Address [address], [place] [address] Care Team Providers Name Role Phone Munira Combs PA-C Primary Care Provider Reason for Visit Reason Comments Other Encounter Details Date Type Department Care Team Description 12/20/2005 Telephone Ilya Sandoval MD Other Obstetrics/Gynecolog y [address] [address] [place] [address] [place] [address] [phone] Social History Tobacco Use Types Packs/Day Years Used Date Smoking Tobacco: Never Assessed Sex Assigned at Date Recorded Female 05/09/2021 7:19 PM SLATE HANDLER documented as of this encounter Progress Notes Center, Message - 12/20/2005 2:23 PM CDT Phone Note filed by [employer] at 10/11/10 0548 Author: [employer] Service: (none) Author Type: (none) Filed: 10/11/10 0548 Note Time: 12/20/05 1423 Status: Signed Musculoskeletal Physiotherapist: [employer] PRESCRIPTION REFILL Please provide enough refills to last until patient's next visit. Comment:- Pharmacy Seq #:- Pharmacy Name:-[facility] fax [phone] phone [phone] or City:- Clinician Name:-Jluis Drug Name/Strength:-Dicyclomine 20mg tab Sig:-Take one tab 4 times a day Quantity:-120 Last Fill:-12-04-05 Created on 20Dec2005 2:23pm by IGNACIO MARTÍNEZ On 20Dec2005 3:07pm ILYA MENDOZA wrote: Prescription refilled. Needs follow-up appointment. Dr. Mendoza Acknowledged by ILYA MENDOZA on 3:07pm E HANDLER documented in this encounter Plan of Treatment Upcoming Encounters Date Type Specialty Care Team Description 05/12/2022 Hospital Encounter Chemo Therapy/Infusion Services 09/15/2022 Telemedicine Gastroenterology Eusebio Haines MD [address] [place] [address] documented as of this encounter Visit Diagnoses Not on filedocumented in this encounter Care Teams Ssis Architect Relationship Specialty Start Date End Date Munira Combs PA-C PCP - General 09/25/10 03/14/15 [address] [place], [place] [phone] documented as of this encounter
--- OUTSIDE RECORDS SUMMARY | 2022-05-09 19:33 | XMS_ITS | Encounter Summary ---
:1975 Author Organization [facility] Address [address] [place] [address] Care Team Providers Name Role Phone Sherie Baez PA-C Primary Care Provider Reason for Visit Reason Comments Other Encounter Details Date Type Department Care Team Description 09/21/2006 Telephone [facility] Sherie Falcon PA-C Other [address] [employer] [address] [place] [address] [place] [address] [phone] (Wo rk) Social History Tobacco Use Types Packs/Day Years Used Date Smoking Tobacco: Never Assessed Sex Assigned at Date Recorded Female 05/09/2021 7:19 PM EMG TECHNICIAN documented as of this encounter Progress Notes Center, Message - 09/21/2006 1:34 PM CDT Phone Note filed by [employer] at 10/11/10 3848 Author: [employer] Service: (none) Author Type: (none) Filed: 10/11/101827 Note Time: 09/21/06 1334 Status: Signed Oracle Manager: [employer] Prescription Refill Please provide enough refills to last until patient's next visit. Comment:-Patient wants to try a higher dose Pharmacy Seq #:-send print to [facility] Pharmacy Name:-[facility] Pharmacy Street or City:-[place] Clinician Name:-A Strong Drug Name/Strength:-Phentermine 15MG cap Sig: Dose/Route/Freq:-take one cap daily Quantity & Last Fill:-30 07/27/06 Created on 21Sep2006 1:34pm by CATIE AVILEZ On 21Sep2006 2:07pm SHERIE BAEZ wrote: rx sent Acknowledged by SHERIE BAEZ on 2:07pm TECHNICIAN documented in this encounter Plan of Treatment Upcoming Encounters Date Type Specialty Care Team Description 05/12/2022 Hospital Encounter Chemo Therapy/Infusion Services 09/15/2022 Telemedicine Gastroenterology Eusebio Haines MD [address] [place] [address] documented as of this encounter Visit Diagnoses Not on filedocumented in this encounter Care Teams Hazardous Material Technician Relationship Specialty Start Date End Date Sherie Baez PA-C PCP - General 09/25/10 03/14/15 [address] [place], [place] [phone] documented as of this encounter
--- OUTSIDE RECORDS SUMMARY | 2022-05-09 19:33 | XMS_ITS | Encounter Summary ---
:1975 Author Organization [facility] Address [address] [place] [address] Care Team Providers Name Role Phone Munira Combs PA-C Primary Care Provider Encounter Details Date Type Department Care Team Description 10/19/2005 Office Visit [facility] [address] [place] [address] [facility] [place] [address] [phone] (Wo rk) Social History Tobacco Use Types Packs/Day Years Used Date Smoking Tobacco: Never Assessed Sex Assigned at Date Recorded Female 05/09/2021 7:19 PM PAPER AND PULP MILL 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 Follow up on an as-needed basis. MKT:[id number] C: 10/30/05 10:25 DOCUMENT: [id number] documented in this encounter Plan of Treatment Upcoming Encounters Date Type Specialty Care Team Description 05/12/2022 Hospital Encounter Chemo Therapy/Infusion Services 09/15/2022 Telemedicine Gastroenterology Eusebio Haines MD [address] [place] [address] documented as of this encounter Visit Diagnoses Not on filedocumented in this encounter Care Teams Client Finance Analyst Relationship Specialty Start Date End Date Munira Combs PA-C PCP - General 09/25/10 03/14/15 [address] [place] [address] documented as of this encounter
--- OUTSIDE RECORDS SUMMARY | 2022-05-09 19:33 | XMS_ITS | Encounter Summary ---
:1975 Author Organization [employer] Address [address] [address] Care Team Providers Name Role Phone Munira Combs PA-C Primary Care Provider Encounter Details Date Type Department Care Team Description 03/17/2005 Nursing Visit [facility] Miguel Ángel Garcia MD [address] [place] [address] [address] [place] [address] (Wo rk) Social History Tobacco Use Types Packs/Day Years Used Date Smoking Tobacco: Never Assessed Sex Assigned at Date Recorded Female 05/09/2021 7:19 PM PUBLIC HEALTH documented as of this encounter Plan of Treatment Upcoming Encounters Date Type Specialty Care Team Description 05/12/2022 Hospital Encounter Chemo Therapy/Infusion Services 09/15/2022 Telemedicine Gastroenterology Eusebio Haines MD [address] [place] [address] documented as of this encounter Visit Diagnoses Not on filedocumented in this encounter Care Teams Base Filler Operator Relationship Specialty Start Date End Date Munira Combs PA-C PCP - General 09/25/10 03/14/15 [address] [place], [place] [phone] documented as of this encounter
--- OUTSIDE RECORDS SUMMARY | 2022-05-09 19:33 | XMS_ITS | Encounter Summary ---
:1975 Author Organization [facility] Address [address] [place] [address] Care Team Providers Name Role Phone Munira Combs PA-C Primary Care Provider Encounter Details Date Type Department Care Team Description 02/08/2006 PN Conversion Only [facility] Munira Combs PA-C [address] [place] [address] [place] [address] (Wo rk) Social History Tobacco Use Types Packs/Day Years Used Date Smoking Tobacco: Never Assessed Sex Assigned at Date Recorded Female 05/09/2021 7:19 PM VIDEO EDITING INTERN documented as of this encounter Plan of Treatment Upcoming Encounters Date Type Specialty Care Team Description 05/12/2022 Hospital Encounter Chemo Therapy/Infusion Services 09/15/2022 Telemedicine Gastroenterology Eusebio Haines MD [address] [place] [address] documented as of this encounter Visit Diagnoses Not on filedocumented in this encounter Care Teams Content Administrator Relationship Specialty Start Date End Date Munira Combs PA-C PCP - General 09/25/10 03/14/15 [address] [place], [place] [phone] documented as of this encounter
--- OUTSIDE RECORDS SUMMARY | 2022-05-09 19:33 | XMS_ITS | Encounter Summary ---
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
--- OUTSIDE RECORDS SUMMARY | 2022-05-09 19:33 | XMS_ITS | Encounter Summary ---
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 CERVICAL CYTOLOGY REPORT Pathology # ??[id number] ?Date Obtained: [id number] ? Date Received: [id number] CYTOLOGIC IMPRESSION: Negative for intraepithelial lesion or [...] Munira Combs PA-C LAB_1 Performing Organization Address City/[facility]/ZIP Code Phon e Number HP CONVERSION Thyroid Stimulating Hormone (02/08/2006 10:14 AM CDT) P athologist Signature Thyroid 1.27 0.20 - HP CONVERSION Stimulating 4.50 Hormone uIU/mL Specimen (Source) Anatomical Collection Method Collection Time Re ceived Time Location / / Volume Laterality 02/08/2006 10:14 AM CDT Munira Combs PA-C LAB_1 Performing Organization Address City/[facility] Phon e Number HP CONVERSION documented in this encounter Visit Diagnoses Not on filedocumented in this encounter Care Teams Teletypewriter Installer Relationship Specialty Start Date End Date Munira Combs PA-C PCP - General 09/25/10 03/14/15 [address] [place] [address] documented as of this encounter
--- OUTSIDE RECORDS SUMMARY | 2022-05-09 19:33 | XMS_ITS | Encounter Summary ---
:1975 Author Organization [facility] Address [address] [place] [address] Care Team Providers Name Role Phone Sherie Baez PA-C Primary Care Provider Reason for Visit Reason Comments Other Encounter Details Date Type Department Care Team Description 02/02/2006 Telephone [facility] Sherie Falcon PA-C Other [address] [place] [address] [place] [address] [phone] (Wo rk) Social History Tobacco Use Types Packs/Day Years Used Date Smoking Tobacco: Never Assessed Sex Assigned at Date Recorded Female 05/09/2021 7:19 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 Comment:-Appt on Feb 08 Pharmacy Seq #:-print to [facility] Pharmacy Name:-[facility] Pharmacy Street or City:-[place] Clinician Name:-A Strong Drug Name/Strength:-Dicyclomine 20MG tab Sig: Dose/Route/Freq:-take one tab 4 times daily Quantity & Last Fill:-120 01/10/06 Created on 02Feb2006 3:02pm by CTAIE AVILEZ On 02Feb2006 5:28pm DEREK GRIFFIN wrote: This med not on our SO list--will need provider input for refills. On 05Feb2006 8:02am SHERIE BAEZ wrote: Given #30. Must follow up for additional refills. Acknowledged by SHERIE BAEZ on 8:02am RAL OFFICE REPAIRER SUPERVISOR documented in this encounter Plan of Treatment Upcoming Encounters Date Type Specialty Care Team Description 05/12/2022 Hospital Encounter Chemo Therapy/Infusion Services 09/15/2022 Telemedicine Gastroenterology Eusebio Haines MD [address] [place] [address] documented as of this encounter Visit Diagnoses Not on filedocumented in this encounter Care Teams In Service Educator Relationship Specialty Start Date End Date Sherie Baez PA-C PCP - General 09/25/10 03/14/15 [address] [place], [place] [phone] documented as of this encounter
--- OUTSIDE RECORDS SUMMARY | 2022-05-09 19:33 | XMS_ITS | Encounter Summary ---
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 1V, SENS Final Report ------ ?[id number] ??1050 No growth @ = URINE CULTURE Performed at ??[address] [facility], [place] ?[address] Specimen (Source) Anatomical Collection Method Collection Time Re ceived Time Location / / Volume Laterality 12/13/2005 10:18 AM CDT Mario Grullon DO LAB_1 Performing Organization Address City/State/ZIP Code Phon e Number HP CONVERSION Urinalysis Routine(Micro If Pos) (12/13/2005 8:46 AM CDT) [facility] gist Method Time Signature Turbidity Clear No [...] Specific >=1.030 1.005 - 25 HP CONVERSION [place] Specimen (Source) Anatomical Collection Method Collection Time Re ceived Time Location / / Volume Laterality 12/13/2005 8:46 AM CDT Mario Grullon DO LAB_1 Performing Organization Address City/State/ZIP Code Phon e Number HP CONVERSION (ABNORMAL) Urinalysis Microscopic (12/13/2005 8:46 AM CDT) [facility] gist Method Time Signature White Blood 10-24/HP [...] Mario Grullon DO LAB_1 Performing Organization Address City/[facility] Phon e Number HP CONVERSION documented in this encounter Visit Diagnoses Not on filedocumented in this encounter Care Teams Dispatcher Maintenance Service Relationship Specialty Start Date End Date Munira Combs PA-C PCP - General 09/25/10 03/14/15 [address] [place] [address] documented as of this encounter
--- OUTSIDE RECORDS SUMMARY | 2022-05-09 19:33 | XMS_ITS | Encounter Summary ---
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 documented as of this encounter Plan of Treatment Upcoming Encounters Date Type Specialty Care Team Description 05/12/2022 Hospital Encounter Chemo Therapy/Infusion Services 09/15/2022 Telemedicine Gastroenterology Eusebio Haines MD [address] [place], [place] [id number] documented as of this encounter Procedures Procedure [...] Ángel Schuster MD LAB_1 Performing Organization Address City/[facility] Phon e Number HP CONVERSION Beta Strep Followup (03/17/2005 11:38 AM CDT) P athologist Signature Strep Screen SEE TEXT HP CONVERSION Comment: Patient: IGGY DUARTE Rapid Strep Follow up Culture @ ? Collected: ??[id number] ??[id number] Source: Throat ?Processed: ??[id number] ??[id number] Final Report ------ ?[id number] ??[id number] No beta hemolytic Strep group A isolated . @ = Rapid F/U Cult Performed at ??[address] [place], [place] ?[address] Specimen (Source) Anatomical Collection Method Collection Time Re ceived Time Location / / Volume Laterality 03/17/2005 11:38 AM CDT Miguel Ángel Schuster MD LAB_1 Performing Organization Address City/[facility] Phon e Number HP CONVERSION documented in this encounter Visit Diagnoses Not on filedocumented in this encounter Care Teams Marketing Underwriter Relationship Specialty Start Date End Date Munira Combs PA-C PCP - General 09/25/10 03/14/15 [address] [place] [address] documented as of this encounter
--- OUTSIDE RECORDS SUMMARY | 2022-05-09 19:33 | XMS_ITS | Encounter Summary ---
:1975 Author Organization [employer] Address [address] [place] [address] Care Team Providers Name Role Phone Munira Combs PA-C Primary Care Provider Encounter Details Date Type Department Care Team Description 02/08/2005 PN Conversion Only MANDAEN CONVERSION Eusebio Vazquez MD [facility]/ [address] [facility]/, [place] [address] Social History Tobacco Use Types Packs/Day Years Used Date Smoking Tobacco: Never Assessed Sex Assigned at Date Recorded Female 05/09/2021 7:19 PM PERSONAL CARE AID documented as of this encounter Plan of Treatment Upcoming Encounters Date Type Specialty Care Team Description 05/12/2022 Hospital Encounter Chemo Therapy/Infusion Services 09/15/2022 Telemedicine Gastroenterology Eusebio Haines MD [address] [place] [address] documented as of this encounter Procedures Procedure Name Priority Date/Time Associated Diagnosis Comme nts GLUCOSE Routine 02/08/2005 8:56 AM Results f or this CDT procedure are i n the results section. CHOLESTEROL, TOTAL Routine 02/08/2005 8:56 AM Res ults for this AND HDL CDT procedure are i n the results section. documented in this encounter Results Cholesterol, Total and HDL (02/08/2005 8:56 AM CDT) Analysis Performed At [facility] Time Signature Cholesterol/HDL 4.0 No normal HP CONVERSION Ratio Screen range Cholesterol 162 <200 mg/dL HP CONVERSION HDL Cholesterol 41 40 - 60 HP CONVERSION mg/dL Specimen (Source) Anatomical Collection Method Collection Time Re ceived Time Location / / Volume Laterality 02/08/2005 8:56 AM CDT Eusebio Vazquez MD LAB_1 Performing Organization Address City/[facility]/ZIP Code Phon e Number HP CONVERSION (ABNORMAL) Glucose (02/08/2005 8:56 AM CDT) P athologist Signature Lab Glucose 105 (H) 60 - 100 HP CONVERSION mg/dL Specimen (Source) Anatomical Collection Method Collection Time Re ceived Time Location / / Volume Laterality 02/08/2005 8:56 AM CDT Eusebio Vazquez MD LAB_1 Performing Organization Address City/[facility] [place] [facility] Phon e Number HP CONVERSION documented in this encounter Visit Diagnoses Not on filedocumented in this encounter Care Teams Gas Engine Operator Relationship Specialty Start Date End Date Munira Combs PA-C PCP - General 09/25/10 03/14/15 [address] [place] [address] documented as of this encounter
--- OUTSIDE RECORDS SUMMARY | 2022-05-09 19:34 | XMS_ITS | Encounter Summary ---
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 documented in this encounter Results [facility] E[facility]OC[facility] TIME SCAN C (08/08/2001 11:04 AM CHIEF BUSINESS OFFICER) Specimen (Source) Anatomical Collection Method Collection Time Re ceived Time Location / / Volume Laterality 08/08/2001 11:04 AM CHIEF BUSINESS OFFICER Narrative HP CONVERSION - 08/08/2001 11:04 AM CHIEF BUSINESS OFFICER ?Normals ?Normals LV(d) 46 ??mm (37-56) RV [...]
--- OUTSIDE RECORDS SUMMARY | 2022-05-09 19:34 | XMS_ITS | Clinical Summary ---
:1975 Author Organization [facility] [place] [address] Care Team Providers Name Role Phone Noemi Abernathy MD Primary Care Provider [phone] Allergies Not on File Medications Not on file Active Problems Not on file Encounters Date Type Specialty Care Team Description 03/22/2022 Lab Requisition SuppSilvia mckay MD from Last 3 Months Social History Tobacco Use Types Packs/Day Years Used Date Never Assessed Sex Assigned at Date Recorded Not on file Plan of Treatment Health Maintenance Due Date Last Done Comments Tdap 1988 Depression screening for age 12+ 1989 HIV for age 15-65 1992 BMI (ht and wt on same day) for age 18+ 1995 Hepatitis C screening for age 18-79 1995 Tetanus booster 1997 COVID-19 vaccine series (2 - Pfizer series) 04/13/202102/24 Influenza for age 9-49 02/23/2022 Colonoscopy through age 75 2022 Lipids for age 45-75 2022 Mammogram for age 45-75 2022 Pap test for age 21-65 02/12/2024 02/11/2021 Procedures Procedure Name Priority Date/Time Associated Diagnosis Comme nts LAB TRACKING EVENT Routine 03/21/2022 4:37 PM CDT PATH TISSUE EXAM Routine 03/21/2022 4:37 PM Resul ts for this CDT procedure are i n the results section. from Last 3 Months Results LAB TRACKING EVENT (03/21/2022 4:37 PM CDT) Specimen Anatomical Collection Method Collection Time Receive d Time (Source) Location / / Volume Laterality Other (Other) Client Collect / 03/21/2022 4:37 PM 02/24 5:08 Unknown CDT PM CDT Silvia Hendrix MD LAB BILL ONLY Performing Organization Address City/State/ZIP Code Phon e Number [facility] [employer] [address] [place] [address] LABORATORY-CENTRAL 2000 LABORATORY PATH TISSUE EXAM (03/21/2022 4:37 PM CDT) Component Value Ref Test Analysis Performed At [facility] gist Range Method Time Signature Case Report Pathology Report ?Case: [id number] ? 03/24/2022 [place] Authorizing Provider: ??Supp woody, Silvia House MD ?Collected: ? 03/21/2022 1637 ? 10:01 AM [facility] Ordering Location: ? [facility] ?Received: ?03/22/2022 1819 ? CDT MARLON ROBIN Pathologist: ? Bhupendra Hernandez MD ? ENTRAL Specimen: ?Uterus, Bilat eral Fallopian Tubes and Ovaries ? LABORATORY Final A) UTERUS WITH CERVIX, OVARI ES ??AND FALLOPIAN TUBES, TOTAL HYSTERECTOMY WITH BILATERAL SALPINGO-OOPHORECTOMY: 03/24/2022 [facility] Electronically Diagnosis 1. Cervix: No significant histologic abnormality 10:01 AM HEALTH signed by 2. Endometrium: Weakly proliferative CDT LABORATORY-C Bhupendra Hernandez 3. Myometrium: Leiomyomas ENTR CECI Parker MD on 4. Uterine serosa: No significant histologic abnormality LABORATORY 03/24/2022 at 5. Ovaries (entirely submitted), undesignated: Benign serous inclusion cysts 10:01 AM 6. Fallopian tubes (entirely submitted), undesig nated: Benign paratubal cysts 7. Uterine weight: 89 grams 8. Negative for malignancy Clinical Menorrhagia, 03/24/2022 [facility] Information breast cancer 10:01 AM HEALTH CDT LABORATORY-C ENTRAL LABORATORY Gross A) Received in formalin, lab eled with the patient's name and uterus, bilateral fallopian tubes and bilateral ovaries, is a 89 gram(uterus and cervix weight only), 8.5 x 6.4 x 4.3 cm hysterectomy and b [facility] Description ilateral salpingo-oophorecto my specimen. The 3.7 cm long, 3.9 cm diameter cervix has a 0.7 cm cervical os. The ectocervical mucosa is granular with adherent mucus. The endocervical canal is patent. 10:01 AM HEALTH CDT LABORATORY-C The endometrium is red-dawn a nd averages 0.3 cm thick. No endometrial lesions are identified. The myometrium is dawn trabecular and averages 1.5 cm thick. ??There are 2 dawn-white whorled nodules measuring ENTRAL 1.5 and 1.3 cm in greatest dimension. ??No discrete foci of hemorrhage or necrosis appreciated grossly. ??The serosa is smooth. LABORATORY Two sets of fallopian tubes and ovaries are included in the container without designation. ??On the fallopian tubes average 6 cm in length by 0.5 cm in diameter and the ovaries average 2.2 x 1.5 x 0.6 c m. ??The fallopian tubes are each fimbriated and display stellate lumina lined by dawn unremarkable mucosa. ??The ovaries are dawn and wrinkled with variegated dawn cut surfaces. ??No discrete lesions are appreciated. Field Crop Farm Worker sections are submitted: 1. Anterior cervix 2. Posterior cervix 3. Anterior endomyometrium with nodule 4. Posterior endomyometrium 5. ??Additional nodule 6-9. ??First fallopian tube, entirely submitted 04-05. ??First ovary, entirely submitted 13-15. ??Second fallopian tube, entirely submitted 16-18. ??Second ovary, entirely submitted JPW 03/22/2022 Microscopic The final 03/24/2022 [facility] Description diagnosis is 10:01 AM HEALTH based on CDT LABORATORY-C microscopic ENTRAL examination of LABORATORY appropriate sections of all specimens. Additional 03/24/2022 [facility] Information Interpreted at [facility], Central Laboratory - [address], [place] [address] 10:01 AM HEALTH CDT LABORATORY-C ENTRAL LABORATORY Specimen (Source) Anatomical Collection Method Collection Time Re ceived Time Location / / Volume Laterality Other (Uterus, 03/21/2022 4:37 03/22/2022 6:19 Bilateral PM CDT PM CDT Fallopian Tubes and Ovaries) Silvia Hendrix MD PATHOLOGY/CYTOLOGY Performing Organization Address City/State/ZIP Code Phon e Number [facility] [address] [place] [address] LABORATORY-CENTRAL 2000 LABORATORY from Last 3 Months Insurance Payer Benefit Plan / Subscriber ID Effective Dates Phone Addre ss Type Group PREFERRED ONE PREFERRED ONE [id number] 2020-Present [address] [place] [address] [phone] y [address] (Home) [place] [id number] Care Teams Senior Business Architect Relationship Specialty Start Date End Date Noemi Abernathy MD PCP - General Family Practice 04/15/211999 [place] [id number]
--- OUTSIDE RECORDS SUMMARY | 2022-05-09 19:34 | XMS_ITS | Encounter Summary ---
:1975 Author Organization [facility] Address [address] [place] [address] Care Team Providers Name Role Phone Munira Combs PA-C Primary Care Provider Encounter Details Date Type Department Care Team Description 11/30/2003 PN Conversion Only [facility] Dannie Whitmore MD [address] [phone] (Wo rk) Social History Tobacco Use Types Packs/Day Years Used Date Smoking Tobacco: Never Assessed Sex Assigned at Date Recorded Female 05/09/2021 7:19 PM HOME HEALTH CARE PROVIDER documented as of this encounter Progress Notes Phone Note, Clinician - 12/01/2003 12:01 AM CDT Phone Note filed by Clinician Phone Note at 10/11/101411 Author: Clinician Phone Note Service: (none) Author Type: Resource Filed: 10/11/10 141 Note Time: 12/01/03 0001 Status: Signed Coronary Clinical Specialist: Clinician Phone Note (Resource) - TREATING PROVIDER: MIGUELANGEL WHITMORE SUBJECTIVE: * HOME PHONE:[phone] * ALLERGIES/SENSITIVITIES... * WORK PHONE:[phone] * CURRENT MEDICATIONS... PERTINENT PAST HISTORY... ASSESSMENT: xenical rx DISPOSITION: NO DISPOSITION [place]IVEN PLAN: [facility] [place]... msg left for pt to return call, pls relay msg that xenical and no othe r wt loss meds are covered by insurance. and if she would still like to get rx she will have to pay out of pocket. CALL BY SANDRA AKINSSARAH [facility] 12/01/2003 02:42PM [phone] ADDENDUM: Miguelangel Whitmore MD - 11/30/2003 12:01 AM CDT Progress Notes signed by at 12/01/03 0818 Author: Miguelangel Whitmore MD Service: (none) Author Type: (none) Filed: 10/13/10 2213 Note Time: 11/30/03 0001 Status: Signed Coronary Clinical Specialist: Tam [facility] Preventive Exam & Pelvic IMPRESSION: Routine preventive [...] CA. No colon CA. Social History: Occupation: [employer] Status: . Habits Smoking: Socially only. [...] hernias. Pelvic: Normal external genitalia and urethra. [place], moist vaginal and cervical mucosa, without lesions. [...] Phone Note signed by Delaney Guillaume APRN, SUPERVISOR CUSTOMER SERVICES at 01/04/04 9933 Author: Clinician Phone Note Service: (none) Author Type: Resource Filed: 11/30/03 0000 Note Time: 07/02/03 0001 Status: Signed Coronary Clinical Specialist: Clinician Phone Note (Resource) - TREATING PROVIDER: DELANEY CAMRYN * HOME PHONE:[phone] * SUBJECTIVE: * WORK PHONE:[phone] * ALLERGIES/SENSITIVITIES... CURRENT MEDICATIONS... PERTINENT PAST HISTORY... ASSESSMENT: Rx refill DISPOSITION: NO DISPOSITION GIVEN OMITTED ASKING ABOUT . OMITTED ASKING ABOUT NURSING. [facility] COM[facility]... Per Sandra Guillaume,ASSOCIATE GENETICS PROFESSOR: ok for Necon , Sig: take as directed, #84 (3 months) x2 refills. The patient needs a pap. This was faxed to [facility] at [phone] by Siria Brown CALL BY JORGE ESTRADA 07/02/2003 02:47PM [phone] ADDENDUM: Deandre Delarosa DPM - 04/14/2003 12:01 AM CDT Progress Notes signed by Deandre Delarosa DPM at 05/01/03 0853 Author: Deandre Delarosa DPM Service: (none) Author Type: Physician Filed: 10/13/10 1605 Note Time: 04/14/032022 Status: Signed Coronary Clinical Specialist: Deandre Delarosa DPM (Physician) NAME: IDANIA MORAN MR: [id number] ACCT: [id number] VISIT: [id number] DICTATING CLINICIAN: DEANDRE DELAROSA DPM JOB: [id number] CLINIC PROGRESS NOTE DATE OF VISIT: 04/14/2003 SUBJECTIVE: The patient presents for follow up. I have seen her in the past for left ankle pain which did resolve. Her current pain is on both feet. It is on the bottom of the heels and has been there for approximately 6 months. She has tried an vnck-qem-rfhpchm temporary Blue insert which has not helped. She states that in the morning when she gets up she does not have any pain, it is only as the day goes on and in the evening that she has pain. 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 ADR/ALLERGIES: SHE DENIES ALLERGIES TO MEDICATIONS. [...] an injection into the area. TT: CT: ALP:[id number] C: 04/14/03 18:32 DOCUMENT: [id number] Delaney Arnett APRN, CNP - 03/05/2003 12:01 AM CDT Progress Notes signed by Delaney Guillaume APRN, CNP at 04/30/03 1711 Author: HERSON Macias Service: (none) Author Type: Nurse Practitioner Filed: 10/13/10 1528 Note Time: 03/05/03 0001 Status: Signed Coronary Clinical Specialist: HERSON Macias (Nurse Practitioner) NAME: IDANIA MORAN MR: [id number] ACCT: [id number] VISIT: [id number] DICTATING CLINICIAN: DELANEY GUILLAUME NP JOB: [id number] CLINIC PROGRESS NOTE DATE OF VISIT: 03/05/2003 [...] TT: Approximately [address]: Eight minutes. 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 She had been using chlorpheniramine oqsx-vrt-xjkveax 4 mg, two or three at a [...] I neglected to do so. TT: CT: DLV:[id number] C: 10/27/02 18:54 DOCUMENT: [id number] Elsa Lopes APRN, SUPERVISOR CUSTOMER SERVICES - 07/31/2002 12:01 AM CST Progress Notes signed by MICHAEL Garduno at 09/18/02 1272 Author: MICHAEL Garduno Service: (none) Author Type: (none) Filed: 10/13/10 1156 Note Time: 07/31/02 0001 Status: Signed Coronary Clinical Specialist: MICHAEL Garduno (Nurse Practitioner) IMPRESSION: Routine health maintenance exam. Dysplastic nevi. Anxiety. Obesity. SUBJECTIVE: Qtezgx-fqje-mjdu-old Idania Moran is in clinic today for [...] about her weight gain. 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 She and her eat out [...] good time to plan it. TT: CT: LAE:[id number] C: 07/31/02 12:07 DOCUMENT: [id number] HEALTH CARE PROVIDER Pepe Beaver MD - 07/01/2002 12:01 AM CST Progress Notes signed by at 08/16/02 0001 Author: Pepe Beaver MD Service: (none) Author Type: Physician Filed: 10/13/10 1111 Note Time: 07/01/02 0001 Status: Signed Coronary Clinical Specialist: Pepe Beaver MD (Physician) IMPRESSION: Upper respiratory [...] for longer than two weeks. 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 SUBJECTIVE: Patient is seen in consultation at the request of Ene Sue Physician Installer [employer]. Patient is a 27-year-old female who presents for left ankle pain. She states that about two weeks ago she developed some swelling in the ankle. She denies any injection or trauma. She does not recall any inversion type injury. She has not changed her routine. 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 She did join [employer] within the last month though. MEDICATIONS: She [...] p.r.n. basis. TT: CT: CC: LUPILLO LOPEZ ALP:[id number] C: 07/01/02 20:17 DOCUMENT: [id number] HEALTH CARE PROVIDER Conversion, [facility] - 06/16/2002 12:01 AM CST Progress Notes signed by at 08/16/02 0001 Author: Tam Conversion Service: (none) Author Type: (none) Filed: 10/13/10 1055 Note Time: 06/16/02 0001 Status: Signed Coronary Clinical Specialist: Tam Conversion IMPRESSION: Left ankle pain secondary [...] denies trauma. Two weeks ago she joined [employer] and she was doing some of that. [...] are further concerns or problems. TT: CT: TMG:[id number] C: 06/17/02 07:06 DOCUMENT: [id number] HEALTH CARE PROVIDER Conversion, [facility] - 06/13/2002 12:01 AM CST Progress Notes signed by Justin Dunaway PA-C at 07/01/02 1300 Author: [facility] Conversion Service: (none) Author Type: (none) Filed: 10/13/10 1052 Note Time: 06/13/02 0001 Status: Signed Coronary Clinical Specialist: Tam Mcnamara IMPRESSION: Irritable bowel syndrome. Panic [...] she is agreeable to that. TT: CT: JL:[id number] C: 06/14/02 14:09 DOCUMENT: [id number] Conversion, [facility] - 11/26/2001 12:01 AM CDT Phone Note signed by Nataly Gore APRN, SUPERVISOR CUSTOMER SERVICES at 11/29/01 3727 Author: Tam Conversion Service: (none) Author Type: (none) Filed: 10/13/10 0612 Note Time: 11/26/01 0001 Status: Signed Coronary Clinical Specialist: Tam Mcnamara IMPRESSION: Yojana and Differine gel refills - TREATING PROVIDER: NATALY JOHN * HOME PHONE:[phone] * SUBJECTIVE: * WORK PHONE:[phone] * PATIENT COMPLAINS OF... Pharmacy calling in need of refill authorization for Yojana 180mg and Differine gel ALLERGIES/SENSITIVITIES... 07/12/01 11/26/01 CURRENT MEDICATIONS... 07/12/01 11/26/01 PERTINENT PAST HISTORY... 07/12/01 11/26/01 ASSESSMENT: Yojana and Differine gel refills DISPOSITION: NO DISPOSITION GIVEN PATIENT IS NOT . PATIENT IS NOT NURSING. PLAN: [facility] [place]... Per Bright Gore FINAL ARMATURE TESTER: Yojana 180mg #30 and Differine gel 42 grams ok to refill through 06/27. Pharmacy notified of above. CALL BY TESSY CAMARGO 11/26/2001 02:26PM ADDENDUM: Gil Jean-Baptiste MD - 11/04/2001 12:01 AM CDT Progress Notes signed by at 07/12/02 1831 Author: Gil Jean-Baptiste MD Service: (none) Author Type: Physician Filed: 10/13/10 0541 Note Time: 11/04/01 0001 Status: Signed Coronary Clinical Specialist: Gil Jean-Baptiste MD (Physician) IMPRESSION: Doing well [...] gently with flexion and extension. TT: CT: ABK:[id number] C: DOCUMENT: [id number] Sukhi Soto MD - 10/29/2001 12:01 AM CDT Progress Notes signed by at 07/12/02 1831 Author: Sukhi Soto MD Service: (none) Author Type: Physician Filed: 10/13/1034 Note Time: 10/29/01 0001 Status: Signed Coronary Clinical Specialist: Sukhi Soto MD (Physician) IMPRESSION: Possible elbow fracture. SUBJECTIVE: Patient is a 26-year-old woman who was seen yesterday by Dr. Jean-Baptiste for a radial head fracture. She had fallen off a horse on Sunday. She was seen at [facility], and x-rays in the emergency room showed [...] Jean-Baptiste at the scheduled appointment. TT: CT: MKT:[id number] C: DOCUMENT: [id number] Gil Jean-Baptiste MD - 10/28/2001 12:01 AM CDT Progress Notes signed by at 07/12/02 1830 Author: Gil Jean-Baptiste MD Service: (none) Author Type: Physician Filed: 10/13/10 0532 Note Time: 10/28/01 0001 Status: Signed Coronary Clinical Specialist: Gil Jean-Baptiste MD (Physician) IMPRESSION: Possible radial head fracture, left elbow. SUBJECTIVE: Idania is currently a 26-year-old female who sustained injury falling off a horse on October 26 and was seen at the [facility] Emergency Room. X-rays were taken and [...] point out of the splint. TT: CT: ABK:[id number] C: DOCUMENT: [id number] Hanny Cade MD - 09/27/2001 12:01 AM CST Progress Notes signed by Hanny Cade MD at 07/29/02 1004 Author: Hanny Cade MD Service: (none) Author Type: Physician Filed: 10/13/10 0447 Note Time: 09/27/01 0001 Status: Signed Coronary Clinical Specialist: Hanny Cade MD (Physician) IMPRESSION: Irritable bowel. SUBJECTIVE: Idania is a 26-year-old woman who comes in today with recurrent episodes of right lower quadrant pain. She states the first episode occurred last March. It was relatively brief lasting 15 to 20 minutes. Was very sharp, severe. She had another episode in June. At that time she was seen by an SHIPPING SUPPORT CLERK who felt that she may have had [...] is given at this time. TT: CT: WMB:[id number] C: DOCUMENT: [id number] HEALTH CARE PROVIDER Conversion, [facility] - 09/21/2001 12:01 AM CST Phone Note signed by at 09/21/01 7370 Author: Imr Conversion Service: (none) Author Type: (none) Filed: 10/13/10 0439 Note Time: 09/21/01 0001 Status: Signed Coronary Clinical Specialist: Tam Conversion IMPRESSION: Abdominal pain-(adult)-triage guideline - TREATING PROVIDER: DELANEY GUILLAUME SUBJECTIVE: * HOME PHONE: [phone] * PATIENT COMPLAINS OF... * WORK PHONE: [phone] * calling because pt has abdominal pain [...] questions or concerns Call taken by MEAGHAN MORGAN, RN [phone] 09/21/2001 01:35 PM ADDENDUM: Jorge Chew MD - 08/23/2001 12:01 AM CST Progress Notes signed by at 08/16/02 0001 Author: Jorge Chew MD Service: (none) Author Type: (none) Filed: 10/13/10 0358 Note Time: 08/23/012022 Status: Signed Coronary Clinical Specialist: Jorge Chew MD (Physician) IMPRESSION: Probable panic [...] two months, sooner p.r.n. problems. TT: CT: BAB:[id number] C: DOCUMENT: [id number] Zara Santana MD - 08/07/2001 12:01 AM CST Progress Notes signed by at 08/16/022022 Author: Zara Santana MD Service: (none) Author Type: Physician Filed: 10/13/10 0335 Note Time: 08/07/012022 Status: Signed Coronary Clinical Specialist: Zara Santana MD (Physician) IMPRESSION: Sinusitis failing [...] smokes several cigarettes weekly. 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 OBJECTIVE: VS/Gen: BP: 128/80. T: 98.1. P: [...] fight infection such as this. TT: CT: [facility]:[id number] C: DOCUMENT: [id number] HEALTH CARE PROVIDER Noemí Kuhn MD - 08/02/2001 12:01 AM CST Progress Notes signed by at 08/16/02 0001 Author: Noemí Kuhn MD Service: (none) Author Type: (none) Filed: 10/13/10 0328 Note Time: 08/02/012022 Status: Signed Coronary Clinical Specialist: Tam Conversion IMPRESSION: Palpitations, likely benign. SUBJECTIVE: [...] for exercise. 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. CURRENT MEDS: Claritin-D, Ortho-Novum, and amoxicillin for [...] her murmur. PLAN: See assessment. TT: CT: ALEYDA:[id number] C: DOCUMENT: [id number] Charles Duarte - 07/24/2001 12:01 AM CST Progress Notes signed by Charles Duarte MD at 08/12/01 0755 Author: Charles Duarte MD Service: (none) Author Type: Physician Filed: 10/13/10 0314 Note Time: 07/24/01 0001 Status: Signed Coronary Clinical Specialist: Charles Duarte MD (Physician) IMPRESSION: Sinusitis with [...] fever, aches and pains, etc. TT: CT: OMAYRA:[id number] C: DOCUMENT: [id number] Ivan Allen MD - 07/18/2001 12:01 AM CST Progress Notes signed by at 08/16/02 0001 Author: Ivan Allen MD Service: (none) Author Type: Physician Filed: 10/13/10 0305 Note Time: 07/18/01 0001 Status: Signed Coronary Clinical Specialist: Ivan Allen MD (Physician) IMPRESSION: Probably a viral pharyngitis. 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 Has had a sore [...] for now. Recheck as needed. 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 CURRENT MEDICATIONS: Claritin and Necon 1/35. Immunizations are up-to-date. ADR/ALLERGIES: SHE HAS NO [...] and also an elbow as a child. CELL ASSEMBLY PINNER HISTORY: Menarche began at age 15. Menses [...] well, and paternal grandfather is of an OR in his 70s. Complete review of systems [...] Urethral meatus is nonenlarged. No inflammation noted. CELL ASSEMBLY PINNER: Vagina is pink and rugated. Just a [...] Kuhn regarding heart palpitations. TT:30mins. CT:20 mins. AC:[id number] C: DOCUMENT: [id number] HEALTH CARE PROVIDER documented in this encounter Plan of Treatment Upcoming Encounters Date Type Specialty Care Team Description 05/12/2022 Hospital Encounter Chemo Therapy/Infusion Services 09/15/2022 Telemedicine Gastroenterology Ellie Haines MD [address] [place] [address] documented as of this encounter Procedures Procedure Name Priority Date/Time Associated Comments Diagnosis GLUCOSE Routine 07/31/2002 8:44 AM Results f or this HOME HEALTH CARE PROVIDER procedure are i n the results section. CHOLESTEROL, TOTAL Routine 07/31/2002 8:44 AM Res ults for this AND HDL HOME HEALTH CARE PROVIDER procedure are i n the results section. XR ANKLE Routine 06/16/2002 4:52 PM Results f or this HOME HEALTH CARE PROVIDER procedure are i n the results section. XR ELBOW Routine 11/04/2001 2:32 PM Results f or this CDT procedure are i n the results section. XR ABD FLAT AND Routine 09/27/2001 1:41 PM Result s for this UPRIGHT HOME HEALTH CARE PROVIDER procedure are i n the results section. URINALYSIS COMPLETE Routine 09/27/2001 1:26 PM Re sults for this HOME HEALTH CARE PROVIDER procedure are i n the results section. COMPLETE BLOOD Routine 09/27/2001 1:26 PM Results for this COUNT-NO DIFF HOME HEALTH CARE PROVIDER procedure are in the results section. TEST Routine 09/27/2001 1:26 PM Results for this (URINE) HOME HEALTH CARE PROVIDER procedure are i n the results section. ESR Routine 09/27/2001 1:26 PM Results f or this HOME HEALTH CARE PROVIDER procedure are i n the results section. US PELVIC PEDIATRIC Routine 08/08/2001 1:15 PM Re sults for this (NO EV) HOME HEALTH CARE PROVIDER procedure are i n the results section. STREP GROUP A ANTIGEN Routine 07/18/2001 1:50 PM Results for this TEST HOME HEALTH CARE PROVIDER procedure are i n the results section. BETA STREP FOLLOWUP Routine 07/18/2001 1:50 PM Re sults for this HOME HEALTH CARE PROVIDER procedure are i n the results section. ANATOMICAL PATH-C Routine 07/05/2001 1:21 PM Resu lts for this HOME HEALTH CARE PROVIDER procedure are i n the results section. THYROID STIMULATING Routine 07/05/2001 8:28 AM Re sults for this HORMONE HOME HEALTH CARE PROVIDER procedure are i n the results section. LIPID PANEL AND Routine 07/05/2001 8:28 AM Result s for this DIRECT LDL(IF NEEDED) HOME HEALTH CARE PROVIDER proced ure are in the results section. documented in this encounter Results Glucose (07/31/2002 8:44 AM HOME HEALTH CARE PROVIDER) P athologist Signature Length Of Fast 12.0 Hours [facility] CONVERSION Lab Glucose 90 60 - 109 [facility] CONVERSION mg/dL Specimen (Source) Anatomical Collection Method Collection Time Re ceived Time Location / / Volume Laterality 07/31/2002 8:44 AM HOME HEALTH CARE PROVIDER Elsa Lopes APRN, SUPERVISOR CUSTOMER SERVICES LAB_1 Performing Organization Address City/State/ZIP Code Phon e Number HP CONVERSION (ABNORMAL) Cholesterol, Total and HDL (07/31/2002 8:44 AM HOME HEALTH CARE PROVIDER) Patholo gist Method Time Signature Cholesterol/HDL 3.7 No normal [facility] CONVERSION Ratio Screen range Cholesterol 201 (H) 125 - 199 [facility] CONVERSION mg/dL HDL Cholesterol 54 40 - 60 [facility] CONVERSION mg/dL Specimen (Source) Anatomical Collection Method Collection Time Re ceived Time Location / / Volume Laterality 07/31/2002 8:44 AM HOME HEALTH CARE PROVIDER Elsa Lopes [facility] LAB_1 Performing Organization Address City/State/ZIP Code Phon e Number HP CONVERSION XR Ankle (06/16/2002 4:52 PM HOME HEALTH CARE PROVIDER) Anatomical Region Laterality Modality Other Specimen (Source) Anatomical Location Collection Method / Collectio n Time Received Time / Laterality Volume Narrative 06/16/2002 4:52 PM HOME HEALTH CARE PROVIDER CLINICAL DATA: ?PAIN. ??719.41 FINDINGS: ?? BN1 [...] X WHICH COULD BE AN ?UNDISPLACED FRACTURE. ?[id number]/TSS TECH-ID : ? AET TRANS-ID: ? EDR Procedure Note Alejandro Garces - 08/31/2016Formattin g of this note might [...] WHI CH COULD BE AN UNDISPLACED FRACTURE. 425700/TSS TECH-ID : AET TRANS-ID: EDR Asa B Jerilyn SANDY RAD GD XR Abd Flat And Upright (09/27/2001 1:41 PM HOME HEALTH CARE PROVIDER) Anatomical Region Laterality Modality Abdomen Other Specimen (Source) Anatomical Location Collection Method / Collectio n Time Received Time / Laterality Volume Narrative 09/27/2001 1:41 PM HOME HEALTH CARE PROVIDER CLINICAL DATA: ?PAIN FINDINGS: ?THERE IS LEVOSCOLIOSIS [...] THERE ARE NO ABNORMAL CALCI FICATIONS SEEN. ?[facility] TECH-ID : ? RE TRANS-ID: ? EDR Procedure Note JillianJorge ambriz - 08/31/2016 CLINICAL DATA: PAIN FINDINGS: THERE [...] THERE ARE NO ABNORMAL CALCIFICAT IONS SEEN. [facility] TECH-ID : RE TRANS-ID: EDR Hanny Cade MD RAD GD Complete Blood Count-No Diff (09/27/2001 1:26 PM HOME HEALTH CARE PROVIDER) athologist Signature White Blood Cell 7.0 3.8 [...] - HP CONVERSION Hemoglobin Conc 36.5 gm/dL [place] RDW 11.3 11.0 - HP CONVERSION 15.0 % Platelet Count 281 140 - 450 HP CONVERSION k/cmm Specimen (Source) Anatomical Collection Method Collection Time Re ceived Time Location / / Volume Laterality 09/27/2001 1:26 PM HOME HEALTH CARE PROVIDER Hanny Cade MD LAB_1 Performing Organization Address City/State/ZIP Code Phon e Number HP CONVERSION ESR (09/27/2001 1:26 PM HOME HEALTH CARE PROVIDER) [facility] Method Time Signature Sedimentation Rate 3 0 - 20 HP CONVERSI ON mm/Hr Specimen (Source) Anatomical Collection Method Collection Time Re ceived Time Location / / Volume Laterality 09/27/2001 1:26 PM HOME HEALTH CARE PROVIDER Hanny Cade MD LAB_1 Performing Organization Address City/State/ZIP Code Phon e Number HP CONVERSION (ABNORMAL) Urinalysis Complete (09/27/2001 1:26 PM HOME HEALTH CARE PROVIDER) [facility] Method Time Signature Glucose, Negative Neg-Trac HP CONVERSION Qualitative U Protein Urine Negative Neg-Trac HP CONVERSION Ketones Trace (A) Negative HP CONVERSION U BILI Negative Negative HP CONVERSION U Specific 1.025 1.005 - 25 HP CONVERSION [place] Blood Urine Negative Negative HP CONVERSION pH [...] / / Volume Laterality 09/27/2001 1:26 PM HOME HEALTH CARE PROVIDER Hanny Cade MD LAB_1 Performing Organization Address City/State/ZIP Code Phon e Number HP CONVERSION Test (Urine) (09/27/2001 1:26 PM HOME HEALTH CARE PROVIDER) Patholo gist Method Time Signature Urine Negative [...] / / Volume Laterality 09/27/2001 1:26 PM HOME HEALTH CARE PROVIDER Hanny Cade MD LAB_1 Performing Organization Address City/[facility] Phon e Number HP CONVERSION US Pelvic Pediatric (No EV) (08/08/2001 1:15 PM HOME HEALTH CARE PROVIDER) Anatomical Region Laterality Modality Pelvis Other Specimen (Source) Anatomical Location Collection Method / Collectio n Time Received Time / Laterality Volume Impressions 08/08/2001 1:15 PM HOME HEALTH CARE PROVIDER : ?NORMAL ULTRASOUND EXAMINATION OF T HE [...] TRANS-ID: ? EDR Narrative 08/08/2001 1:15 PM HOME HEALTH CARE PROVIDER CLINICAL DATA: ?PELV. LOWER RT QUAD PAIN ?625.9 PT CX [id number] Procedure Note Ivan Black - 08/31/2016 CLINICAL DATA: PELV. LOWER RT QUAD PAIN 625.9 PT CX [id number] IMPRESSION : NORMAL ULTRASOUND EXAMINATION OF THE [...] IDENTIFIED AND NO FREE FLUID IS NOTED. [facility] TECH-ID : TRANS-ID: EDR Delaney Guillaume APRN, SUPERVISOR CUSTOMER SERVICES RAD US Strep Group A Antigen Test (07/18/2001 1:50 PM HOME HEALTH CARE PROVIDER) [facility] Time Signature Strep Group A Negative Negative HP CONVERSION Antigen Test Comment: Culture to follow. Specimen (Source) Anatomical Collection Method Collection Time Re ceived Time Location / / Volume Laterality 07/18/2001 1:50 PM HOME HEALTH CARE PROVIDER Ivan Allen MD LAB_1 Performing Organization Address City/State/ZIP Code Phon e Number HP CONVERSION Beta Strep Followup (07/18/2001 1:50 PM HOME HEALTH CARE PROVIDER) athologist Signature Strep Screen SEE TEXT HP CONVERSION Comment: Patient: IDANIA MORAN Rapid Strep Follow up Culture @ ? Collected: ??[id number] ??[id number] Source: Throat ?Processed: ?1409 ? R Final Report ------ ?[id number] ??[id number] No beta hemolytic Strep group A isolated . @ = Rapid F/U Cult Performed at ??[address] [facility] [place], [place] ?[address] Specimen (Source) Anatomical Collection Method Collection Time Re ceived Time Location / / Volume Laterality 07/18/2001 1:50 PM HOME HEALTH CARE PROVIDER Ivan Allen MD LAB_1 Performing Organization Address City/State/ZIP Code Phon e Number HP CONVERSION Anatomical Path-C (07/05/2001 1:21 PM HOME HEALTH CARE PROVIDER) P athologist Signature PAP Smear SEE TEXT No normal HP CONVERSION range Comment: Patient: IDANIA MORAN ? CERVICAL CYTOLOGY REPORT Pathology # ??[id number] ?Date Obtained: ? Date Received: LMP: ?01 CLINICAL HIST ? PRV SMR UNKNOWN CERVICAL SMEAR SPECIMEN ADEQUACY: ?? Satisfactory. ENDOCERVICAL CELLS: ??Present. CYTOLOGIC IMPRESSION: Within Normal Limits (Negative). Verified 07/15/01 by: ??LBM ?(electronic signature) Specimen (Source) Anatomical Collection Method Collection Time Re ceived Time Location / / Volume Laterality 07/05/2001 1:21 PM HOME HEALTH CARE PROVIDER Paco Bazzi MD LAB_1 Performing Organization Address City/State/ZIP Code Phon e Number HP CONVERSION (ABNORMAL) Lipid Panel and Direct LDL(If Needed) (07/05/2001 8:28 AM HOME HEALTH CARE PROVIDER) Patholo gist Method Time Signature Length Of [...] / / Volume Laterality 07/05/2001 8:28 AM HOME HEALTH CARE PROVIDER Paco Bazzi MD LAB_1 Performing Organization Address City/[facility] Phon e Number HP CONVERSION Thyroid Stimulating Hormone (07/05/2001 8:28 AM HOME HEALTH CARE PROVIDER) P athologist Signature Thyroid 1.63 0.20 - HP CONVERSION Stimulating 5.50 Hormone uIU/mL Specimen (Source) Anatomical Collection Method Collection Time Re ceived Time Location / / Volume Laterality 07/05/2001 8:28 AM HOME HEALTH CARE PROVIDER Paco Bazzi MD LAB_1 Performing Organization Address City/[facility] Phon e Number HP CONVERSION documented in this encounter Visit Diagnoses Not on filedocumented in this encounter Care Teams Genetic Technologist Relationship Specialty Start Date End Date Munira Combs PA-C PCP - General 09/25/10 03/14/15 [address] [place] [address] documented as of this encounter
--- OUTSIDE RECORDS SUMMARY | 2022-05-09 19:34 | XMS_ITS | Encounter Summary ---
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 ANATOMICAL PATH Routine 11/30/2003 1:58 PM Result s for this LIQUID BASED CDT procedure are i n the results section. documented in this encounter Results Wet Prep [facility] (11/30/2003 2:25 PM CDT) [facility] gist Method Time Signature Wet Prep Park . No normal HP CONVERSION [facility] Wet Prep Trich Negative No normal HP CONVERSION [facility] Comment: SWAB ONLY RECIEVED. Wet Prep WBC [facility] Few No normal range HP CONVERSION Wet Prep Bacteria [facility] Moderate No normal range HP CONVERSION Wet Prep Clue Cells [facility] Negative No normal range HP CONVERSION Wet Prep Yeast [facility] Negative No normal range HP CONVERSION Wet Prep Amine Od[facility] Negative No normal range HP CONVERSION Specimen (Source) Anatomical Collection Method Collection Time Re ceived Time Location / / Volume Laterality 11/30/2003 2:25 PM CDT Miguelangel Whitmore MD LAB_1 Performing Organization Address City/State/ZIP Code Phon e Number HP CONVERSION Pap Smear (11/30/2003 1:58 PM CDT) [facility] gist Method Time Signature PAP Smear SEE TEXT No normal HP CONVERSION Liquid Based range Comment: Patient: IGGY DUARTE ? CERVICAL CYTOLOGY REPORT Pathology # ??[id number] ?Date Obtained: ? Date Received: CYTOLOGIC IMPRESSION: Negative for intraepithelial lesion or m alignancy. ? CELSO TIONAL DATA LMP: ?10-26-03 CLINICAL HIST ? PREV NORM 1-02 LIQUID BASED PAP CERVICAL SPECIMEN ADEQUACY: ?? Satisfactory. ENDOCERVICAL CELLS: ??Present. Verified 06/15/04 by: ??SN ? (electronic signature) Specimen (Source) Anatomical Collection Method Collection Time Re ceived Time Location / / Volume Laterality 11/30/2003 1:58 PM CDT Miguelangel Whitmore MD LAB_1 Performing Organization Address City/State/ZIP Code Phon e Number HP CONVERSION documented in this encounter Visit Diagnoses Not on filedocumented in this encounter Care Teams Welding Machine Operator Arc Relationship Specialty Start Date End Date Munira Combs PA-C PCP - General 09/25/10 03/14/15 [address] [place] [address] documented as of this encounter
--- OUTSIDE RECORDS SUMMARY | 2022-05-09 19:34 | XMS_ITS | Encounter Summary ---
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 documented as of this encounter Last Filed Vital Signs Vital Sign Reading Time Taken Comments Blood Pressure 108/64 11/22/2004 3:24 PM CDT Pulse - - Temperature 36.5 ??C (97.7 ??F) 11/22/2004 3:24 PM ORAL C: 3 6.5 C CDT Respiratory Rate - - Oxygen Saturation - - Inhaled Oxygen Concentration - - Weight 84.8 kg (186 lb 15.9 11/22/2004 3:24 PM C: 84.8k g oz) CDT Height - - Body Mass Index - - documented in this encounter Progress Notes Chandrika Bender - 11/22/2004 12:01 AM CDT Progress Notes signed by MICHAEL Keller at 11/28/04 1049 Author: MICHAEL Keller Service: (none) Author Type: Nurse Practitioner Filed: 10/14/10 0439 Note Time: 11/22/042022 Status: Signed Engraver Copperplate: MICHAEL Keller (Nurse Practitioner) NAME: IGGY DUARTE MR: [id number] ACCT: [id number] VISIT: [id number] DICTATING CLINICIAN: CHANDRIKA BENDER NP JOB: [id number] CLINIC PROGRESS NOTE DATE OF VISIT: 11/22/2004 SUBJECTIVE: Chief Complaint: A 29-year-old female presents with 1 week history of fatigue, sinus pressure, drainage in the past 4 days including post nasal drainage, pressure around the nose. No fever or chills. Minimal cough. No shortness of breath or wheezing. No fever. Concerned about a possible underlying sinus infection. Reports clear drainage. Reports daily allergies only while in the work setting. Uses OTC Chlor-Trimeton daily. No need for taking this when not at work. No itchy, watery eyes, or sneezing. Occasional social smoker. MEDICATIONS: Ortho Evra patch. Dicyclomine 20 mg q.i.d. for history of IBS. Miraphen PSE. Has used with prior nasal or sinus congestion with good relief. Of note reports chronic intermittent cramping, sometimes awakens her at night if she does not take the dicyclomine on a regular basis. After some discussion recommend follow up appointment. May try holding off of dairy products for 2-4 weeks and slowly adding back in or may try a LactAid. Also encouraged adequate fiber intake, aiming for 30-40 g daily. Information given on IBS. States her IBS symptoms are more stress induced. 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 ADR/ALLERGIES: NKDA. OBJECTIVE: VS: BP: 108/64. T: 97.7. Wt: 187 lb. GENERAL: Alert female. No acute distress. SKIN: Soft, warm, dry. Eyes: Conjunctivae clear. PERRLA. TMs, canals clear. Nares congested, right greater than left. Mildly red. Clear coryza. Throat: Oropharynx posterior cobblestoning. No redness. NECK: Supple. No lymphadenopathy or thyromegaly. LUNGS: Clear. Effort unlabored. CARDIAC: RRR. No murmur. ASSESSMENT: 1. Sinusitis and rhinitis. 2. IBS. PLAN: Septra DS b.i.d. for 10 days. Adequate fluid hydration. Saltwater nasal spray daily p.r.n. May continue with the Miraphen PSE b.i.d. p.r.n. Avoid antihistamine if possible as this may dry her sinuses out more but may use if needed. Follow up if symptoms persist or worsen. Recommend follow up appointment to review IBS at her convenience. FINAL IMPRESSION: 1. Sinusitis and rhinitis. 2. History of IBS. ALK:[id number] C: 11/23/04 08:19 DOCUMENT: [id number] ION COMMANDER documented in this encounter Plan of Treatment Upcoming Encounters Date Type Specialty Care Team Description 05/12/2022 Hospital Encounter Chemo Therapy/Infusion Services 09/15/2022 Telemedicine Gastroenterology Eusebio Haines MD [address] [place] [address] documented as of this encounter Visit Diagnoses Not on filedocumented in this encounter Care Teams Burglar Alarm Operator Relationship Specialty Start Date End Date Munira Combs PA-C PCP - General 09/25/10 03/14/15 [address] [place] [address] documented as of this encounter
--- OUTSIDE RECORDS SUMMARY | 2022-05-09 19:34 | XMS_ITS | Encounter Summary ---
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 documented as of this encounter Progress Notes Miguel Ángle Schuster - 07/21/2004 12:01 AM CST Progress Notes signed by Miguel Ángel Schuster MD at 07/27/04 1349 Author: Miguel Ángel Schuster MD Service: (none) Author Type: Physician Filed: 10/14/10 0216 Note Time: 07/21/04 0001 Status: Signed General Repair Mechanic: Miguel Ángel Schuster MD (Physician) NAME: IGGY DUARTE MR: [id number] ACCT: [id number] VISIT: [id number] DICTATING CLINICIAN: MIGUEL ÁNGEL SCHUSTER MD JOB: [id number] CLINIC PROGRESS NOTE DATE OF VISIT: 07/21/2004 [...] 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 [facility]:[id number] C: 07/21/04 15:11 DOCUMENT: [id number] documented in this encounter Plan of Treatment Upcoming Encounters Date Type Specialty Care Team Description 05/12/2022 Hospital Encounter Chemo Therapy/Infusion Services 09/15/2022 Telemedicine Gastroenterology Eusebio Haines MD [address] [place] [address] documented as of this encounter Visit Diagnoses Not on filedocumented in this encounter Care Teams Manager Insurance Relationship Specialty Start Date End Date Munira Combs PA-C PCP - General 09/25/10 03/14/15 [address] [place], [place] [id number] documented as of this encounter
--- OUTSIDE RECORDS SUMMARY | 2022-05-09 19:34 | XMS_ITS | Encounter Summary ---
:1975 Author Organization [employer] [facility] Address [address] [place] [address] Care Team Providers Name Role Phone Munira Combs PA-C Primary Care Provider Encounter Details Date Type Department Care Team Description 05/12/2004 Nursing Visit [facility] Ivan Neely MD [facility] [facility] [employer] [address] [place] [address] [phone] (Wo rk) Social History Tobacco Use Types Packs/Day Years Used Date Smoking Tobacco: Never Assessed Sex Assigned at Date Recorded Female 05/09/2021 7:19 PM ADMISSION NURSE documented as of this encounter Plan of Treatment Upcoming Encounters Date Type Specialty Care Team Description 05/12/2022 Hospital Encounter Chemo Therapy/Infusion Services 09/15/2022 Telemedicine Gastroenterology Eusebio Haines MD [address] [place] [address] documented as of this encounter Visit Diagnoses Not on filedocumented in this encounter Care Teams Entry Level Sales Representative Relationship Specialty Start Date End Date Munira Combs PA-C PCP - General 09/25/10 03/14/15 [address] [place] [address] documented as of this encounter
--- OUTSIDE RECORDS SUMMARY | 2022-05-09 19:34 | XMS_ITS | Encounter Summary ---
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 documented as of this encounter Plan of Treatment Upcoming Encounters Date Type Specialty Care Team Description 05/12/2022 Hospital Encounter Chemo Therapy/Infusion Services 09/15/2022 Telemedicine Gastroenterology Eusebio Haines MD [address] [place], [place] [address] documented as of this encounter Procedures Procedure [...] encounter Results AST (12/19/2004 2:10 PM CDT) [facility] Method Time Signature Aspartate 16 0 - 45 HP CONVERSION Aminotransferase U/L Specimen (Source) Anatomical Collection Method Collection Time Re ceived Time Location / / Volume Laterality 12/19/2004 2:10 PM CDT Paco Bazzi MD LAB_1 Performing Organization Address City/State/ZIP Code Phon e Number HP CONVERSION Bilirubin, [...] City/State/ZIP Code Phon e Number HP CONVERSION Sodium [...] Paco Bazzi MD LAB_1 Performing Organization Address City/[facility]/ZIP Code Phon e Number HP CONVERSION (ABNORMAL) Urinalysis Complete (12/19/2004 2:10 PM CDT) [facility] gist Method Time Signature Glucose, Negative Neg-Trac HP CONVERSION Qualitative U Protein Urine Trace Neg-Trac HP CONVERSION Ketones Trace (A) Negative HP CONVERSION U BILI Negative Negative HP CONVERSION U Specific 1.025 1.005 - 25 HP CONVERSION [place] Blood Urine Large (A) Negative HP CONVERSION [...] Paco Bazzi MD LAB_1 Performing Organization Address City/[facility]/ZIP Code Phon e Number HP CONVERSION Test (Urine) (12/19/2004 2:10 PM CDT) [facility] Method Time Signature Urine Negative No normal [...] Paco Bazzi MD LAB_1 Performing Organization Address [facility] Phon e Number HP CONVERSION Pap Smear (12/19/2004 9:26 AM CDT) [facility] Method Time Signature PAP Smear SEE TEXT No normal HP CONVERSION Liquid Based range Comment: Patient: IGGY DUARTE ? CERVICAL CYTOLOGY REPORT Pathology # ??[id number] ?Date Obtained: ? Date Received: CYTOLOGIC IMPRESSION: [...] on filedocumented in this encounter Care Teams Packaging Line Attendant Relationship Specialty Start Date End Date Munira Combs PA-C PCP - General 09/25/10 03/14/15 [address] [place] [address] documented as of this encounter
--- OUTSIDE RECORDS SUMMARY | 2022-05-09 19:34 | XMS_ITS | Encounter Summary ---
:1975 Author Organization [employer] [facility] Address [address] [place] [address] Care Team Providers Name Role Phone Munira Combs PA-C Primary Care Provider Encounter Details Date Type Department Care Team Description 05/12/2004 PN Conversion Only [place] CONVERSION Edwardo Mccarty [address] [place] [address] Social History Tobacco Use Types Packs/Day Years Used Date Smoking Tobacco: Never Assessed Sex Assigned at Date Recorded Female 05/09/2021 7:19 PM CROP RANCH HAND documented as of this encounter Plan of Treatment Upcoming Encounters Date Type Specialty Care Team Description 05/12/2022 Hospital Encounter Chemo Therapy/Infusion Services 09/15/2022 Telemedicine Gastroenterology Eusebio Haines MD [address] [place] [address] documented as of this encounter Procedures Procedure Name Priority Date/Time Associated Diagnosis Comme nts STREP GROUP A Routine 05/12/2004 10:49 AM Results for this ANTIGEN TEST CROP RANCH HAND procedure are i n the results section. BETA STREP FOLLOWUP Routine 05/12/2004 10:49 AM R esults for this CROP RANCH HAND procedure are i n the results section. documented in this encounter Results Strep Group A Antigen Test (05/12/2004 10:49 AM CROP RANCH HAND) [facility] Signature Strep Group A Negative Negative HP CONVERSION Antigen Test Comment: Culture to follow. Specimen (Source) Anatomical Collection Method Collection Time Re ceived Time Location / / Volume Laterality 05/12/2004 10:49 AM CROP RANCH HAND Edwardo Mccarty MD LAB_1 Performing Organization Address City/[facility] Code Phon e Number HP CONVERSION Beta Strep Followup (05/12/2004 10:49 AM CROP RANCH HAND) athologist Signature Strep Screen SEE TEXT HP CONVERSION Comment: Patient: IGGY DUARTE Rapid Strep Follow up Culture @ ? Collected: ??[id number] ??[id number] Source: Throat ?Processed: ??[id number] ??[id number] Final Report ------ ?[id number] ??[id number] No beta hemolytic Strep group A isolated . @ = Rapid F/U Cult Performed at ??[address] [facility] [place] ?[address] Specimen (Source) Anatomical Collection Method Collection Time Re ceived Time Location / / Volume Laterality 05/12/2004 10:49 AM CROP RANCH HAND Edwardo Mccarty MD LAB_1 Performing Organization Address City/[facility] Phon e Number HP CONVERSION documented in this encounter Visit Diagnoses Not on filedocumented in this encounter Care Teams Armed Custom Protection Officer Relationship Specialty Start Date End Date Munira Combs PA-C PCP - General 09/25/10 03/14/15 [address] [place] [address] documented as of this encounter
--- OUTSIDE RECORDS SUMMARY | 2022-05-09 19:34 | XMS_ITS | Encounter Summary ---
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
--- OUTSIDE RECORDS SUMMARY | 2022-05-09 19:34 | XMS_ITS | Encounter Summary ---
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
--- OUTSIDE RECORDS SUMMARY | 2022-05-09 19:34 | XMS_ITS | Encounter Summary ---
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 documented in this encounter Results Anatomical Path-C (07/31/2002 3:37 PM SPORTS COMPLEX ATTENDANT) P athologist Signature PAP Smear SEE TEXT No normal HP CONVERSION range Comment: Patient: IGGY DUARTE ? CERVICAL CYTOLOGY REPORT Pathology # ??[id number] ?Date Obtained: ? Date Received: LMP: CLINICAL HIST CONVENTIONAL PAP SMEAR-CERVIX SPECIMEN ADEQUACY: ?? Satisfactory. ENDOCERVICAL CELLS: ??Present. CYTOLOGIC IMPRESSION: Negative for intraepithelial lesion or m alignancy. Verified 08/25/02 by: ? (electronic signature) Specimen (Source) Anatomical Collection Method Collection Time Re ceived Time Location / / Volume Laterality 07/31/2002 3:37 PM SPORTS COMPLEX ATTENDANT Elsa Lopes MISSION COORDINATOR, TERMITE HELPER LAB_1 Performing Organization Address City/State/ZIP Code Phon e Number HP CONVERSION documented in this encounter Visit Diagnoses Not on filedocumented in this encounter Care Teams Tinner Automatic Relationship Specialty Start Date End Date Munira Combs PA-C PCP - General 09/25/10 03/14/15 [address] [place] [address] documented as of this encounter
--- OUTSIDE RECORDS SUMMARY | 2022-05-09 19:34 | XMS_ITS | Encounter Summary ---
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 documented in this encounter Results Sexually Transmitted Disease Probe (03/05/2003 11:25 AM CDT) [facility] Method Time Signature Sexually SEE TEXT HP CONVERSION Transmitted Disease Probe Comment: Patient: IGGY DUARTE Sexually Trans Disease Probe @ ?Collected: ??[id number] ??[id number] Source: ENDOCERV ?Processed: ??[id number] ??1125 ? 1V Final Report ------ ?[id number] ??[id number] No Chlamydia trachomatis detected by amp lified DNA assay No Neisseria gonorrhoeae detected by amp lified DNA assay @ = Sexually Trans Disease Probe Perform ed at ??[address] ?[place] [address] Specimen (Source) Anatomical Collection Method Collection Time Re ceived Time Location / / Volume Laterality 03/05/2003 11:25 AM CDT Delaney Guillaume APRN, FUNDRAISING MANAGER LAB_1 Performing Organization Address City/State/ZIP Code Phon e Number HP CONVERSION documented in this encounter Visit Diagnoses Not on filedocumented in this encounter Care Teams Training Development Manager Relationship Specialty Start Date End Date Munira Combs PA-C PCP - General 09/25/10 03/14/15 [address] [place] [address] documented as of this encounter
--- OUTSIDE RECORDS SUMMARY | 2022-05-09 19:34 | XMS_ITS | Encounter Summary ---
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
--- OUTSIDE RECORDS SUMMARY | 2022-05-09 19:34 | XMS_ITS | Encounter Summary ---
:1975 Author Organization [facility] Address [address] [place] [address] Care Team Providers Name Role Phone Muniar Combs PA-C Primary Care Provider Reason for Visit Reason Comments Other Encounter Details Date Type Department Care Team Description 07/21/[address] [facility] [address] Avni Morales RN Other Ophthalmology [facility] [address] 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 Vision is normal now. Recommended evaluation; told her to schedule with one of the [facility] at her site. She agreed. Created on 21Jul2004 9:01am by DUSTY MORALES documented in this encounter Plan of Treatment Upcoming Encounters Date Type Specialty Care Team Description 05/12/2022 Hospital Encounter Chemo Therapy/Infusion Services 09/15/2022 Telemedicine Gastroenterology Eusebio Haines MD [address] [place] [address] documented as of this encounter Visit Diagnoses Not on filedocumented in this encounter Care Teams Sewing Teacher Relationship Specialty Start Date End Date Munira Combs PA-C PCP - General 09/25/10 03/14/15 [address] [place] [id number] documented as of this encounter
--- OUTSIDE RECORDS SUMMARY | 2022-05-09 19:34 | XMS_ITS | Encounter Summary ---
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 FINAL IMPRESSION: Abdominal and pelvic pain. DNA:[id number] C: 12/20/04 13:13 DOCUMENT: [id number] documented in this encounter Plan of Treatment Upcoming Encounters Date Type Specialty Care Team Description 05/12/2022 Hospital Encounter Chemo Therapy/Infusion Services 09/15/2022 Telemedicine Gastroenterology Eusebio Haines MD [address] [place] [address] documented as of this encounter Visit Diagnoses Not on filedocumented in this encounter Care Teams Feather Curling Machine Operator Relationship Specialty Start Date End Date Munira Combs PA-C PCP - General 09/25/10 03/14/15 [address] [place], [place] [phone] documented as of this encounter
--- OUTSIDE RECORDS SUMMARY | 2022-05-09 19:34 | XMS_ITS | Encounter Summary ---
:1975 Author Organization [employer] 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
== END 2022-05-09 19:09 | disposition home or self-care (01) ==
LOC: MAMMO 19:08
PROVIDERS: PCP Family Medicine; Visit Provider Family Medicine
DX: Z12.31 Encounter for screening mammogram for malignant neoplasm of breast (principal); R92.2 Inconclusive mammogram
CPT/HCPCS: 77063; 77067

== ENCOUNTER 2022-07-14 15:00 | Outpatient (RCR) | payer OTHER, SELFPAY ==
--- NOTE | 2022-06-30 08:52 | ONC.NURNOTE ---
Requested PA from [employer] for Anastrazole 1 mg PO Daily. Request is approved effective 06/28/2022 - 06/28/2032. Confirmation #: [id number].
--- NOTE | 2022-07-04 11:20 | URNOTE ---
Per Talita at [facility], Authorization for Vedolizumab is valid for [facility]. Vedolizumab (J3380), 1mg, 330 units, 06/06/2022-06/24/2023. Case # [id number]
[2022-07-14 14:55] VITALS: BP 134/84; PULSE 96; RESP 16; TEMP 36.2; O2SAT 95
[2022-07-14] MEDS: VEDOLIZUMAB 300 MG, TUBING SECONDARY 1 EACH in 0.9 % SODIUM CHLORIDE 250 ml 250 ML 510 MG IVPB (15:27)
--- NOTE | 2022-07-27 16:22 | ONC.NURNOTE ---
Addendum entered by Oralia Marshall 08/16/22 12:37: Follow up call to patient to see how she is feeling after holding the Anastrozole. She states. ?I don't think it was the med causing the issues as they are still there. It feels like all my joint are really hurting. Hips are bad at night when I'm sleeping and the rest of my joints really ache all day. I assured her that I would share this update with the [facility] team and get back to her with recommendations. Original Note: Pt emailed [facility] reporting: I'm really struggling with Anastrazole. I had some minor issues at the end with the Tamoxifen but since starting the new med 06/30/22 I'm having issues with LOTS of joint pain. The sides of my elbows, fingers, knees, lower back and really bad hip pain at night. The hip pain goes away in the morning after walking a bit but it hurts so bad even to roll over or move my legs at night. Pt has tried OTC pain meds in morning, midday and at night without sufficient improvement. Reviewed with Janna Kline SEMICONDUCTOR WAFER INSPECTOR; hold Anastrazole x 2-3 wks. [facility] to call in 2-3 weeks and assess symptoms. If much better, can try restarting Anastrazole; if symptoms persist, pt to be seen by Med Onc for consideration of switching to other AI.
--- NOTE | 2022-08-25 15:58 | ONC.NURNOTE ---
07/27/22 16:[address] [facility] Nurse Note by Archana Ugalde RN Acct Num: [id number] : 1975? Patient Age: 47 Addendum entered by Oralia Marshall? 08/16/22 12:37: Follow up call to patient to see how she is feeling after holding the Anastrozole.? She states.? ?I don't think it was the med causing the issues as they are still there. It feels like all my joint are really hurting. Hips are bad at night when I'm sleeping and the rest of my joints really ache all day.??I assured her that I would share this update with the [place] team and get back to her with recommendations.? ? 08/26/2023: Patient informed that we updated Janna [place] on her condition Janna felt that if the pain hasn't resolved, that it likely is not the Anastrozole. Idania was given the option to restart Anastrozole, switch to a different aromatase inhibitor or continue to hold and discuss with Dr. Sahu. Patient will restart the Anastrozole. I told her to have a low threshold for calling with worsening or intolerable joint pain. Patient verbalizes understanding. ?.
== END 2022-08-27 23:59 | disposition home or self-care (01) ==
LOC: CCIC 15:00
PROVIDERS: PCP Family Medicine; Referring Provider Family Medicine; Visit Provider Internal Medicine Hematology & Oncology
DX: C50.912 Malignant neoplasm of unspecified site of left female breast (principal); Z17.0 Estrogen receptor positive status [ER+]; K51.90 Ulcerative colitis, unspecified, without complications
CPT/HCPCS: 96365; 99212; 99214; 99215; J3380; J7050

== ENCOUNTER 2022-07-31 09:15 | Outpatient (CLI) | payer OTHER, SELFPAY ==
[2022-07-31 09:44] LABS: Chloride* 104 mmol/L (96-114)
[2022-07-31 09:45] LABS: Potassium* 4.1 mmol/L (3.6-5.1); Sodium* 139 mmol/L (135-149)
[2022-07-31 09:47] LABS: Bilirubin Total* 0.3 mg/dL (0.1-1.5); Carbon Dioxide* 28 mmol/L (20-32); Cholesterol* 192 mg/dL (90-199); Creatinine* 0.6 mg/dL (0.5-1.5); Estimated Glomerular Filt Rate 113 ml/min
[2022-07-31 09:48] LABS: Alanine Aminotransferase* 21 U/L (4-35); Alkaline Phosphatase* 73 U/L (40-150); Aspartate Amino Transferase* 23 U/L (12-35); Blood Urea Nitrogen* 15 mg/dL (5-24); Calcium* 9.2 mg/dL (8.4-10.6); Glucose* 101 mg/dL (60-115); HDL Cholesterol* 51 mg/dL (>=50); LDL Cholesterol Calculated 103 mg/dL (<100); Total Protein* 6.9 g/dL (6.0-8.3); Triglycerides* 192 mg/dL (40-149)
== END 2022-07-31 09:16 | disposition home or self-care (01) ==
PROVIDERS: PCP Family Medicine; Visit Provider Family Medicine
DX: Z11.52 Encounter for screening for COVID-19 (principal); Z13.6 Encounter for screening for cardiovascular disorders; E66.9 Obesity, unspecified
CPT/HCPCS: 80053; 80061

== ENCOUNTER 2023-03-02 14:00 | Outpatient (RCR) | payer OTHER, SELFPAY ==
[2022-09-08 15:00] VITALS: BP 132/80; PULSE 80; RESP 16; TEMP 36.1; O2SAT 98
[2022-09-08] MEDS: VEDOLIZUMAB 300 MG, TUBING SECONDARY 1 EACH in 0.9 % SODIUM CHLORIDE 250 ml 250 ML 510 MG IVPB (15:33)
--- NOTE | 2022-09-14 15:14 | ONC.NURNOTE ---
Follow up call to patient to see how she is tolerating the Anastrozole. The following was copied from email communication. I've been going back and forth about going to Urgent Care or seeing if I should see Dr. Sahu for my lower back pain. I've been to the chiro a few times and that has not helped. Some nights its really bad and I'm almost in tears and others its just a pain. I've tried different over the counter pain meds and creams and nothing really helps. Daytime its there and somedays are worse then others. I almost thought about asking to try a break again and see if it lessens some and to keep a record of how im really feeling. Elisha also noticed now that I just am not feeling well since starting back on the Anestrazole. Kind of like a icky feeling that doesnt go away? Patient scheduled for follow up with Dr. Sahu 09/18 to discuss her concerns.
[2022-11-10 12:20] VITALS: BP 144/82; PULSE 84; RESP 16; TEMP 36.4; O2SAT 99
[2022-11-10] MEDS: VEDOLIZUMAB 300 MG, TUBING SECONDARY 1 EACH in 0.9 % SODIUM CHLORIDE 250 ml 250 ML 510 MG IVPB (12:51)
[2022-11-21 15:50] LABS: Iron* 67 ug/dL (37-170)
[2022-11-21 15:59] LABS: Percent Iron Saturation 18 % (20-50); Total Iron Binding Capacity 364 ug/dL (265-497)
[2022-11-21 16:07] LABS: Vitamin D 25 Hydroxy* 64 ng/mL (30-80)
[2022-11-21 16:25] LABS: Ferritin* 24.8 ng/mL (6.24-137.0)
[2023-01-05] MEDS: VEDOLIZUMAB 300 MG, TUBING SECONDARY 1 EACH in 0.9 % SODIUM CHLORIDE 250 ml 250 ML 510 MG IVPB (14:25)
[2023-01-05 14:38] VITALS: BP 135/78; PULSE 80; RESP 16; TEMP 36.4; O2SAT 99
[2023-03-02 14:02] VITALS: BP 111/74; PULSE 81; RESP 16; TEMP 35.7; O2SAT 97
[2023-03-02] MEDS: VEDOLIZUMAB 300 MG, TUBING SECONDARY 1 EACH in 0.9 % SODIUM CHLORIDE 250 ml 250 ML 510 MG IVPB (14:45)
== END 2023-03-07 23:59 | disposition home or self-care (01) ==
LOC: CCIC 14:00
PROVIDERS: PCP Family Medicine; Referring Provider Family Medicine; Visit Provider Internal Medicine Hematology & Oncology
DX: C50.912 Malignant neoplasm of unspecified site of left female breast (principal); Z17.0 Estrogen receptor positive status [ER+]; K51.90 Ulcerative colitis, unspecified, without complications
CPT/HCPCS: 36415; 82306; 82728; 83540; 83550; 96365; 99212; 99213; 99214; 99215; J3380; J7050

== ENCOUNTER 2023-06-01 13:28 | Outpatient (REF) | payer OTHER, SELFPAY ==
[2023-06-01 14:05] LABS: Albumin* 4.8 g/dL (3.3-5.0); Chloride* 99 mmol/L (96-114); Sodium* 138 mmol/L (135-149)
[2023-06-01 14:06] LABS: Potassium* 3.5 mmol/L (3.6-5.1)
[2023-06-01 14:08] LABS: Anion Gap 10 mEq/L (7-15); Bilirubin Total* 0.3 mg/dL (0.1-1.5); Carbon Dioxide* 29 mmol/L (20-32); Creatinine* 0.6 mg/dL (0.5-1.5); Estimated Glomerular Filt Rate 112 ml/min; Total Protein* 8.2 g/dL (6.0-8.3)
[2023-06-01 14:09] LABS: Alanine Aminotransferase* 24 U/L (4-35); Alkaline Phosphatase* 74 U/L (40-150); Aspartate Amino Transferase* 28 U/L (12-35); Blood Urea Nitrogen* 15 mg/dL (5-24); Calcium* 9.4 mg/dL (8.4-10.6); Glucose* 86 mg/dL (60-115)
[2023-06-01 14:11] LABS: Basophils Absolute Auto 0.04 K/uL (0.00-0.30); Basophils Percent Auto 0.6 % (0.0-3.0); C Reactive Protein* 0.8 mg/dL (0.5-1.0); Eosinophils Absolute Auto 0.13 K/uL (0.00-0.50); Eosinophils Percent Auto 1.9 % (0.0-7.0); Hematocrit 41.7 % (33.0-51.0); Hemoglobin* 13.7 gm/dL (12.0-16.0); Lymphocytes Absolute Auto 2.75 K/uL (0.90-2.90); Lymphocytes Percent Auto 40.5 % (20-44); Mean Corpuscular HGB Conc 33 gm/dL (32-36); Mean Corpuscular Hemoglobin 30 pg (26-34); Mean Corpuscular Volume 93 fL (80-100); Platelet Count* 279 K/uL (140-440); RDW Coefficient of Variation % 12.3 % (11.5-15.5); Red Blood Count 4.51 m/uL (4.00-5.20); White Blood Count* 6.79 K/uL (4.50-11.00)
[2023-06-01 14:13] LABS: Slide Review Reflex No
== END 2023-06-01 13:29 | disposition home or self-care (01) ==
LOC: NPINS 13:28
PROVIDERS: PCP Family Medicine
DX: K51.311 Ulcerative (chronic) rectosigmoiditis with rectal bleeding (principal)
CPT/HCPCS: 80048; 80076; 80280; 82397; 85025; 86140

== ENCOUNTER 2023-06-19 15:24 | Outpatient (CLI) | payer OTHER, SELFPAY ==
--- NOTE | 2023-06-19 15:40 | CRLHL7_ITS ---
For Patients: As a result of the Cures Act, medical imaging exams and procedure reports are released immediately into your electronic medical record. You may view this report before your referring provider. If you have questions, please contact your health care provider. BILATERAL SCREENING MAMMOGRAM WITH COMPUTER-AIDED DETECTION AND TOMOSYNTHESIS TECHNIQUE: CC and MLO views were obtained. These mammographic images have been obtained using full-field digital technique. These mammographic images were interpreted with the benefit of computer-aided detection. Breast Tomosynthesis was used in this interpretation. COMPARISON FILM: 05/09/22, 03/24/21, 01/15/18. FINDINGS: The breasts are heterogeneously dense, which may obscure small masses IMPRESSION: There is no radiographic evidence for malignancy. ASSESSMENT: BI-RADS Category 2: Benign RECOMMENDATION: Routine screening mammogram in 1 year. A lay language report of this examination will be provided to the patient. Euesbio Devine M.D. Diagnostic Radiologist [email or web address] CHIP/mignon / be/Dictated by: Eusebio Devine MD @ 06/20/2023 9:13:00 AM (Electronically Signed)
== END 2023-06-19 15:25 | disposition home or self-care (01) ==
LOC: MAMMO 15:25
PROVIDERS: PCP Family Medicine; Visit Provider Family Medicine
DX: Z12.31 Encounter for screening mammogram for malignant neoplasm of breast (principal); R92.2 Inconclusive mammogram
CPT/HCPCS: 77063; 77067

== ENCOUNTER 2023-10-12 12:00 | Outpatient (RCR) | payer OTHER, SELFPAY ==
[2023-04-27] MEDS: 0.9 % SODIUM CHLORIDE 250 ml IV (14:00)
[2023-04-27] MEDS: SODIUM CHLORIDE 0.9 % (FLUSH) 10 ML SYRINGE IVF (14:00)
[2023-04-27 14:09] VITALS: BP 123/77; PULSE 82; RESP 16; TEMP 35.9; O2SAT 98
[2023-06-22 12:55] VITALS: BP 120/69; PULSE 88; RESP 16; TEMP 36.7; O2SAT 98
[2023-06-22] MEDS: 0.9 % SODIUM CHLORIDE 250 ml IV (13:11)
--- NOTE | 2023-07-27 11:53 | URNOTE ---
[employer] ([id number]) has been approved. 08/17/2023-02/15/2024. REf #[id number]
[2023-08-17 11:46] VITALS: BP 131/75; PULSE 74; RESP 16; TEMP 36.4; O2SAT 99
[2023-08-17] MEDS: 0.9 % SODIUM CHLORIDE 250 ml IV (12:20)
[2023-08-17] MEDS: SODIUM CHLORIDE 0.9 % (FLUSH) 10 ML SYRINGE IVF ×2 (12:20→12:50)
[2023-10-12 11:57] VITALS: BP 129/77; PULSE 89; RESP 16; TEMP 36.1; O2SAT 96
[2023-10-12] MEDS: 0.9 % SODIUM CHLORIDE 250 ml IV (12:20)
== END 2023-10-24 23:59 | disposition home or self-care (01) ==
LOC: CCIC 12:00
PROVIDERS: PCP Family Medicine; Referring Provider Family Medicine; Visit Provider Internal Medicine Hematology & Oncology
DX: K51.90 Ulcerative colitis, unspecified, without complications (principal); C50.912 Malignant neoplasm of unspecified site of left female breast; Z17.0 Estrogen receptor positive status [ER+]
CPT/HCPCS: 96365; 99212; 99213; 99214; J3380; J7050

== ENCOUNTER 2023-10-23 16:00 | Outpatient (RCR) | payer OTHER, SELFPAY | END 2023-12-25 09:39 | disposition home or self-care (01) | PROVIDERS: PCP Family Medicine; Visit Provider Family Medicine | DX: M54.50 Low back pain, unspecified (principal); Z51.89 Encounter for other specified aftercare | CPT/HCPCS: 97110; 97140; 97161 ==

== ENCOUNTER 2023-12-26 07:37 | Outpatient (CLI) | payer OTHER, SELFPAY ==
--- OUTSIDE RECORDS SUMMARY | 2023-12-26 07:39 | XMS_ITS | Clinical Summary ---
Author Organization [facility] Address [address] [place] [address] Care Team Providers Care Ultimate Hoops Trainer Name Role Phone Sheeba Castillo APRN, CNP Primary Care Provid er Source Comments You are receiving this document as you are listed as the primary care provider,follow-up provider, or the patient has been referred to you for consultation.This is in compliance with the Medicare and[facility] EHR Incentive Program,which states Providers who transition their patient to another setting of careor provider of care or refers their patient to another provider of care shouldprovide summary care record for each transition of care or referral. [email or web address] Allergies No known active allergies Medications Medication Sig Dispensed Refills Start Date End Date Status Multiple Vitamin (MULTI-VITAMIN OR) Take 1 tablet by mouth daily (every 24 hours). 11/14/2011 Active Calcium Carbonate Antacid 1000 MG Take by mouth. Reported on 08/14/2016 02/15/2012 Active triamterene-hydroch lorothiazide (MAXZIDE-25) 37.5-25 MG tabletIndications:E ssential hypertension (HRC) Take 1 Tablet by mouth daily. 90 Tablet 3 03/15/2020 Active norethindrone-eth estradiol (PIRMELLA /35) 1-35 MG-MCG tabletIndications:W ell adult exam Take 1 Tablet by mouth daily. 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 0 03/10/2022 Active hyoscyamine (LEVSIN/SL) 0.125 MG sublingual tabletIndications:I rritable bowel syndrome, unspecified type PLACE 2 TABLETS (0.25 MG) UNDER TONGUE EVERY 4 HOURS NEEDED FOR CRAMPING. 60 Tablet 2 07/13/2023 Active Active Problems Problem Noted Date Diagnosed Date Ulcerative rectosigmoiditis with rectal bleeding 04/30/2019 Hematochezia 04/30/2019 Ulcerative colitis with rectal bleeding 07/25/19 17 Overview: On lialda, cholestyramin, and dicyclomine C. difficile colitis 07/25/2016 BCC (basal cell carcinoma), leg 08/11/2011 Overview: 07/09/2008: left upper thigh HTN (hypertension) 08/11/2011 Overweight 08/11/2011 Malignant melanoma of skin of trunk, except scro nelda 11/01/2010 Overview: 07/09/2008, mid-abdomen ; Melanoma Trunk Resolved Problems Problem Noted Date Diagnosed Date Resolved Date JANNET (generalized anxiety disorder) 01/18/2015 11/18/2015 Situational stress 01/18/2015 6 Chronic headaches 08/11/2011 12/17/2017 Concussion 08/11/2011 12/17/2017 Overview: February 2008, thrown from horse. History of tobacco use 08/11/201112/17 Hx of tonsillectomy 08/11/2011 12/15/19 17 Female genital symptoms 12/19/200404/25 Overview: LW Onset: [id number] ; Pelvic Pain Female Irritable bowel syndrome 11/29/2002 Immunizations Name Administration Dates Next Due Flu Vac Preserv Free (3+yrs) 03/04/2012, 03/10/2011,03/10/2010,2008,04/17/2008,04/08/2008,04/03/2007,1 H1n1 Laiv Medimmune 2-49 Yr (Intranasal) 04/13/2009 H1n1 Miv Sanofi 3+ Yr (Injected) 06/09/2013 HepB Adult (Engerix-B, 20+ y rs, 3 dose series) 02/08/2006,01/02/2002 HepB, Unspecified Formulation 08/09/2001 Influenza IIV4 (Quadrivalent ) 0.5mL (35504) 03/31/2019,03/22/2018,03/21/2018,2016,03/23/2016,03/24/2015,03/23/2014 PCV13 (Prevnar) 05/09/2021(Deferred: Patient Ref used) PCV20 ([id number]) 03/10/2022(Deferred: Patient Refused - Patient will complete at a later date) PPSV23 (Pneumovax) 05/09/2021(Deferred: Patient Refused - Patient will do at [...] Grandfather Maternal Grandmother Alive Paternal Grandfather Other biologi per unknown Paternal Grandmother Other biologi per unknown Social History Tobacco Use Types Packs/Day Years Used Date Smoking Tobacco: Former Cigarettes 0.3 15 1 06/25/1999 - 04/25/2015 Smokeless Tobacco: Never Alcohol Use Standard Drinks/Week Comments Yes 1 (1 standard drink = 0.6 oz pur e alcohol) 1-3 drinks a week PHQ-2 Answer Date Recorded PHQ-2 Score 0 03/15/2020 Sex and Gender Information Value Date Recorded Sex Assigned at Female 05/09/2021 7:19 PM BOOKMAKER'S CLERK Gender Identity Female 05/09/2021 7:19 PM BOOKMAKER'S CLERK Sexual Orientation Straight 05/09/2021 7: 19 PM BOOKMAKER'S CLERK Last Filed Vital Signs Vital Sign Reading Time Taken Comments Blood Pressure 140/92 05/12/2022 2:52 PM BOOKMAKER'S CLERK Pulse 88 05/12/2022 2:52 PM BOOKMAKER'S CLERK Temperature 36.8 ??C (98.2 ??F) 05/12/2022 2:52 PM CS T Respiratory Rate 16 08/23/2020 11:41 AM BOOKMAKER'S CLERK Oxygen Saturation 98% 05/12/2022 2:52 PM BOOKMAKER'S CLERK Inhaled Oxygen Concentration - - Weight 96.2 kg (212 lb) 01/13/2022 8:26 AM CDT Height 167.6 cm (5' 6) 08/23/2020 10:00 AM BOOKMAKER'S CLERK Body Mass Index 34.22 08/23/2020 10:00 AM BOOKMAKER'S CLERK Plan of Treatment Health Maintenance Due Date Last Done Comments Pneumococcal (1 - PCV) 1983 Cervical Cancer Screening 12/17/20202017, 09/30/2014, 08/11/2011, Additional history exists Adult Preventive Visit 03/15/2021 , 12/19/2018, 12/17/2017, Additional history exists Mammogram 05/25/2022 05/25/2021 (Comp leted), 01/15/2018 COVID-19 Vaccine ( season) 2023 03/20/2023, 04/21/2022, 03/23/2021, Additional history exists Cholesterol 04/08/2025 04/08/2020, 03/27, 02/20/2019, Additional history exists Colonoscopy 08/23/2025 08/23/2020, 09/22/2015 DTaP/Tdap/Td (3 - Tdap) 02/11/2031 02/12/20, 07/04/2010, 11/30/2003 HepB Completed 02/08/2006, 12/23, 08/09/2001 HIV Screening (Preventive Services) Completed 03/24/2015 Hep C Screening (Preventive Services) Completed 03/24/2015 Zoster/Shingles Completed 08/03/2022, 03/14/2019 Influenza Completed 03/20/2023, 03/26, 03/23/2021, Additional history exists HepA Aged Out No longer eligi ble based on patient's age to complete this topic Hib Aged Out No longer eligi ble based on patient's age to complete this topic IPV (Polio) Aged Out No longer eligi ble based on patient's age to complete this topic MCV4 Aged Out No longer eligi ble based on patient's age to complete this topic Procedures Procedure Name Priority Date/Time Associated Diagnosis Comments ENDOSCOPY, COLON, SCREENING/DIAGNOSTI C Routine 08/23/2020 10:45 AM BOOKMAKER'S CLERK Left sided colitis with rectal bleeding (HRC) LIPID PANEL & DIRECT LDL (IF NEEDED) Routine 04/08/2020 3:56 PM CDT Well adult exam MM MAMMOGRAM SCREENING BILAT W CAD Routine 01/15/2018 3:45 PM CDT Well adult exam ANATOMICAL PATH LIQUID BASED Routine 12/17/2017 4:23 PM CDT HIV ANTIBODY Routine 03/24/2015 11:39 AM CDT Routine screening for STI (sexually transmitted infection) HEPATITIS C ANTIBODY, WITH REFLEX Routine 03/24/2015 11:39 AM CDT Routine screening for STI (sexually transmitted infection) from Last 3 Months or Most Recently Relevant to Health Maintenance Results * Endoscopy, colon, diagnostic (08/23/2020 10:45 AM BOOKMAKER'S CLERK) 08/23/2020 10:4 5 AM BOOKMAKER'S CLERK Narrative [facility] ([facility]) - 08/23/2020 10:45 AM BOOKMAKER'S CLERK Patient Name: Idania Duarte Procedure Date: 08/23/2020 10:45 AM Date of : 1975 Admit Type: Outpatient Age: 45 Gender: Female Note Status: Finalized Attending MD: Мария Rasmussen MD Procedure: ? Colonoscopy Indications: ? Disease activity assessment of ? left-sided chronic ulcerative ? colitis, Assess therapeutic response ? to therapy of left-sided chronic ? ulcerative colitis Providers: ? Мария Rasmussen MD, Marni Smith Referring MD: ?Eusebio Haines Medicines: ? Midazolam 6 mg IV, Fentanyl 125 ? micrograms IV Complications: ? No immediate complications. Procedure: ? Pre-Anesthesia Assessment: ? - The following statement was ? reviewed with the patient during ? pre-procedure scheduling, and was ? again reviewed with the patient by ? the endoscopist immediately prior to ? the procedure during the consent ? process, with an emphasis on the ? first sentence: With any procedure ? there is a small but inherent risk of ? acquiring infection including, but ? not limited to, the novel coronavirus ? (COVID-19). Please be aware that ? there is a potential for your ? procedure or surgery to be postponed, ? or possibly canceled, if you should ? test positive for COVID-19. There is ? also a potential for postponement of ? your procedure if there is a ? significant reduction in resources ? required to safely perform your ? procedure. ? After I obtained informed consent, ? the scope was passed under direct ? vision. Throughout the procedure, the ? patient's blood pressure, pulse, and ? oxygen saturations were monitored ? continuously. The [id number] was ? introduced through the anus and ? advanced to 10 cm into the ileum. The ? colonoscopy was performed without ? difficulty. The patient tolerated the ? procedure well. The quality of the ? bowel preparation was good. Findings: ? The perianal and digital rectal examinations were ? normal. ? The terminal ileum appeared normal. ? A 1 mm polyp was found in the transverse colon. The ? polyp was sessile. The polyp was removed with a cold ? snare. Resection and retrieval were complete. ? Scattered pseudopolyps were found in the sigmoid ? colon, in the descending colon, in the transverse ? colon, at the hepatic flexure and in the ascending ? colon. ? Normal mucosa was found in the entire colon. Four ? biopsies were taken every 10 cm with a cold forceps ? from the entire colon for ulcerative colitis ? surveillance. These biopsy specimens from the cecum, ? ascending colon, transverse colon, descending colon ? and rectosigmoid colon were sent to Pathology. ? The exam was otherwise without abnormality on direct ? and retroflexion views. Moderate Sedation: ? Moderate (conscious) sedation was administered by the ? endoscopy nurse and supervised by the endoscopist. ? The following parameters were monitored: oxygen ? saturation, heart rate, blood pressure, and response ? to care. Total physician intraservice time was 25 ? minutes. Impression: ?- The examined portion of the ileum ? was normal. ? - One 1 mm polyp in the transverse ? colon, removed with a cold snare. ? Resected and retrieved. ? - Pseudopolyps in the sigmoid colon, ? in the descending colon, in the ? transverse colon, at the hepatic ? flexure and in the ascending colon. ? - Normal mucosa in the entire ? examined colon. Biopsied. ? - The examination was otherwise ? normal on direct and retroflexion ? views. Recommendation: ?- Discharge patient to home. ? - Await pathology results. ? - Repeat colonoscopy for surveillance ? based on pathology results. ? - Return to GI clinic. Procedure Code(s): ?? --- Professional --- ? 06019, Colonoscopy, flexible; with ? removal of tumor(s), polyp(s), or ? other lesion(s) by snare technique ? 74398, 59, Colonoscopy, flexible; ? with biopsy, single or multiple ? 37494, Moderate sedation; each ? additional 15 minutes intraservice ? time ? G0500, Moderate sedation services ? provided by the same physician or ? other qualified health care ? professional performing a ? gastrointestinal endoscopic service ? that sedation supports, requiring the ? presence of an independent trained ? observer to assist in the monitoring ? of the patient's level of ? consciousness and physiological ? status; initial 15 minutes of ? intra-service time; patient age 5 ? years or older (additional time may ? be reported with 79150, as ? appropriate) Diagnosis Code(s): ?? --- Professional --- ? K63.5, Polyp of colon ? K51.40, Inflammatory polyps of colon ? without complications ? K51.50, Left sided colitis without ? complications CPT copyright 2019 [employer]. All rights reserved. The codes documented in this report are preliminary and upon gyroscopic engineering technician review may be revised to meet current compliance requirements. Мария Rasmussen MD 08/23/2020 11:18:43 AM This document has been electronically signed. Number of Addenda: 0 Note Initiated On: 08/23/2020 10:45 AM ? Endoscopy Report Procedure Note Provider, MD Angelica - 08/23/2020 Patient Name: Idania Duarte Procedure Date: 08/23/2020 [...] and oxygen saturations were monitored continuously. The [id number] was introduced through the anus and advanced [...] GI clinic. Procedure Code(s): --- Professional --- 10517, Colonoscopy, flexible; with removal of tumor(s), polyp(s), or other lesion(s) by snare technique 29900, 59, Colonoscopy, flexible; with biopsy, single or multiple 60339, Moderate sedation; each additional 15 minutes intraservice time G0500, Moderate sedation services provided by the same physician or other qualified health healthcare customer service performing a gastrointestinal endoscopic service that sedation supports, requiring the presence of an independent trained observer to assist in the monitoring of the patient's level of consciousness and physiological status; initial 15 minutes of intra-service time; patient age 5 years or older (additional time may be reported with 73874, as appropriate) Diagnosis Code(s): --- Professional --- K63.5, Polyp of colon K51.40, Inflammatory polyps of colon without complications K51.50, Left sided colitis without complications CPT copyright 2019 [employer]. All rights reserved. The codes documented in this report are preliminary and upon gyroscopic engineering technician review may be revised to meet current compliance requirements. Мария Rasmussen MD 08/23/2020 11:18:43 AM This document has been electronically signed. Number of Addenda: 0 Note Initiated On: 08/23/2020 10:45 AM Endoscopy Report Eusebio Haines MD PN GI PROCEDURE [facility] [place], [place] * Lipid Panel and Direct LDL(If Needed) (04/08/2020 3:56 PM CDT) Cholesterol 175 0 - 199 mg/dL 04/08/2020 4:39 PM [facility] Triglyceride 108 <=149 mg/dL 04/08/2020 4:39 PM [facility] HDL Cholesterol 59 >=40 mg/dL 0 4:39 PM [facility] LDL, Calculated 94 <130 mg/dL 0 4:39 PM [facility] Non HDL Chol, Calculated 116 mg/dL 04/08/2020 4:39 PM [facility] Cholesterol/HDL Ratio 3.0 04/08/2020 4:39 PM [facility] Hours Fasting 4 04/08/2020 4:39 PM [facility] Blood Venipuncture / Unknown 04/08/2020 3:56 PM CDT 04/08/2020 3:56 PM CDT Idania Andrade MD LAB_1 [facility] [address] [place] [address], [facility] [phone] * MM Mammogram Screening Bilat W CAD (01/15/2018 3:45 PM CDT) Anatomical Region Laterality Modality Breast Bilateral Mammography Impressions 01/15/2018 4:09 PM CDT : ACR BI-RADS Category 1: Negative RECOMMENDATION: Follow Up Imaging in 12 months - Bilateral The results and recommendations of this examination will be communicated to the patient. Narrative 01/15/2018 4:09 PM CDT MM MAMMOGRAM SCREENING BILAT W CAD performed on 01/15/18 No comparisons were made when reading this study. Baseline. FINDINGS: Bilateral screening mammogram was performed with the assistance of Computer-Aided Detection. The breasts are heterogeneously dense, which may obscure small masses. There is no radiographic evidence of malignancy. ?? Idania Andrade MD RAD STEPHANE * Pap Smear (12/17/2017 4:23 PM CDT) 12/17/2017 4:23 PM CDT Narrative PN SOFT - 12/25/2017 5:11 PM CDT FINAL GYNECOLOGICAL CYTOLOGY REPORT Pathology #: [id number] ?Date Obtained: 12/17/2017 ? Date Received: 12/18/2017 INTERPRETATION/RESULTS: Negative for Intraepithelial Lesion or Malignancy. SPECIMEN ADEQUACY: Satisfactory for Evaluation. ??Endocervical cells/transformation zone component present. Verified on 12/25/2017 ??by JARROD DE LA FUENTE(ASCP) (electronic signature) CLINICAL NOTES: ?Abnormal bleeding: No, LMP: continuous OCP, Menstrual status: ?None Apply, Current form of therapy: Hormone Therapy LIQUID BASED PAP SMEAR SPECIMEN TYPE: ?ROUTINE CERVICAL PAP TEST PLEASE NOTE: The pap smear is a screening test designed to aid in the detection of cervical cancer and its precursor lesions. It is not a diagnostic procedure and should not be used as the sole means of detecting cervical cancer. Both false-positive and false-negative reports may occur. [place] [address] Idania Andrade MD LAB_1 Performing Organization Address [facility] de Phone Number PN SOFT [address] [place], [place] [address] * HIV ANTIBODY (03/24/2015 11:39 AM CDT) Pathologist [facility] HIV 1/HIV 2 Non-React Non-Reacti ve HP CONVERSION 03/24/2015 11:3 9 AM CDT 03/24/2015 2:53 PM CDT Narrative HP CONVERSION - 03/25/2015 12:01 AM CDT Performed at [place] [address] Kinga Pickett APRN, CNP LAB_1 Performing Organization Address [facility] de Phone Number HP CONVERSION * Hepatitis C Antibody, with Reflex (03/24/2015 11:39 AM CDT) Pathologist [facility] Hepatitis C Antibody Non-React Non-Reacti ve HP CONVERSION 03/24/2015 11:3 9 AM CDT 03/24/2015 2:53 PM CDT Narrative HP CONVERSION - 03/24/2015 9:00 PM CDT Performed at [address] [address] Kinga Pickett APRN, CNP LAB_1 Performing Organization Address [facility] de Phone Number HP CONVERSION from Last 3 Months or Most Recently Relevant to Health Maintenance Advance Directives * Full Code (Latest Code Status on File) Date Activated Date Inactivated Comments 04/30/2019 7:39 PM 05/05/2019 4:05 PM * Full Code Date Activated Date Inactivated Comments 07/25/2016 4:15 PM 07/30/2016 4:47 PM * Full Code Date Activated Date Inactivated Comments 07/12/2016 1:10 PM 07/12/2016 9:07 PM Care Teams Ultimate Hoops Trainer Relationship Specialty Start Date End Date Sheeba Castillo, FREELANCE PATTERNMAKER, FARMWORKER GENERAL [address] [place] [address] PCP - General Nurse Practitioner 07/20/16
--- OUTSIDE RECORDS SUMMARY | 2023-12-26 07:39 | XMS_ITS | Clinical Summary ---
Author Organization [facility] Address [place], [place] [address] Care Team Providers Care Etymology Teacher Name Role Phone Noemi Abernathy MD Primary Care Provider + Social History Tobacco Use Types Packs/Day Years Used Date Smoking Tobacco: Never Assessed Sex and Gender Information Value Date Recorded Sex Assigned at Not on file Gender Identity Not on file Sexual Orientation Not on file Plan of Treatment Health Maintenance Due Date Last Done Comments Tdap 1988 Depression screening for age 12+ 1989 HIV for age 15-65 1992 BMI (ht and wt on same day) for age 18+ 1995 Hepatitis C screening for ag e 18-79 1995 Tetanus booster 1997 Colonoscopy through age 75 2022 Lipids for age 45-75 2022 Mammogram for age 45-75 2022 COVID-19 vaccine series ( season) 2023 03/23/2021 Pap test for age 21-65 02/12/2024 02/11/2021 Influenza for age 9-49 02/24/2024 Pneumococcal series for age 6-64 Aged Out No longer eligible based on patient's age to complete this topic Procedures Procedure Name Priority Date/Time Associated Diagnosis Comments HPV THIN PREP Routine 02/11/2021 12:00 PM CDT from Last 3 Months or Most Recently Relevant to Health Maintenance Results * HPV HIGH RISK (02/11/2021 12:00 PM CDT) TYPE 16 Negative Negative 02/15/2021 5:05 AM CDT [facility] TYPE 18 Negative Negative 02/15/2021 5:05 AM CDT [facility] OTHER HIGH RISK TYPES Negative Negative 02/15/2021 5:05 AM CDT [facility] Other (Cervical/Vagina l) 02/11/2021 12:00 PM CDT 02/14/2021 7:24 AM CDT Narrative [facility] - 02/15/2021 5:05 AM CDT HPV types 16, 18, 31, 33, 35, 39, 45, 51, 52, 56, 58, 59, 66 and 68 DNA were undetectable or below the pre-set threshold. Methodology: Lul Robyn 4800 HPV Test Noemi Abernathy MD 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 [facility] [address] [place] [address], from Last 3 Months or Most Recently Relevant to Health Maintenance Care Teams Etymology Teacher Relationship Specialty Start Date End Date Noemi Abernathy MD [address] [place] [address] PCP - General Family Practice 04/15/21
--- OUTSIDE RECORDS SUMMARY | 2023-12-26 07:40 | XMS_ITS ---
Author Organization [facility] Address [address] [place] [address] Care Team Providers Care Paving Machine Operator Name Role Phone Sheeba Castillo APRN, SIERRA Primary Care Provid er Active Problems Problem Noted Date Diagnosed Date [...] 11/01/2010 Overview: 07/09/2008, mid-abdomen ; Melanoma Trunk Current Oncology Plans No current plan information found. Past Plans Radiation Treatments * No radiation treatments are documented for this patient in [facility]. Treatments may have been administered in another system. Resolved Problems Problem Noted Date Diagnosed Date Resolved Date JANNET (generalized anxiety disorder) 01/18/2015 11/18/2015 Situational stress 01/18/2015 6 Chronic headaches 08/11/2011 12/17/2017 Concussion 08/11/2011 12/17/2017 Overview: February 2008, thrown from horse. History of tobacco use 08/11/201112/17 Hx of tonsillectomy 08/11/2011 12/15/19 17 Female genital symptoms 12/19/200404/25 Overview: LW Onset: [id number] ; Pelvic Pain Female Irritable bowel syndrome 11/29/2002
--- OUTSIDE RECORDS SUMMARY | 2023-12-26 07:40 | XMS_ITS | Encounter Summary ---
Author Organization [facility] Address [address] [place] [address] Care Team Providers Care Basket Braider Name Role Phone Sheeba Castillo APRN, CNP Primary Care Provid er Encounter Details Date Type Department Care Team (Late st Contact Info) Description 07/22/2016 Correspondence [facility] [address] [place], [place] [phone] Fernanda Lancaster, POPEY[place] [address] [place], [place] [id number] RETURN TO WORK AUTH Social History Tobacco Use Types Packs/Day Years Used Date Smoking Tobacco: Former Cigarettes 0.3 15 1 06/25/1999 - 04/25/2015 Smokeless Tobacco: Never Alcohol Use Standard Drinks/Week Comments Yes 0 (1 standard drink = 0.6 oz pur e alcohol) rarely Sex and Gender Information Value Date Recorded Sex Assigned at Female 05/09/2021 7:19 PM OIL FURNACE INSTALLER Gender Identity Female 05/09/2021 7:19 PM OIL FURNACE INSTALLER Sexual Orientation Straight 05/09/2021 7: 19 PM OIL FURNACE INSTALLER documented as of this encounter Plan of Treatment Not on file documented as of this encounter Visit Diagnoses Not on filedocumented in this encounter Care Teams Basket Braider Relationship Specialty Start Date End Date Sheeba Castillo APRN[place] CNP [address] [place] [address] PCP - General Nurse Practitioner 07/20/16 documented as of this encounter
--- OUTSIDE RECORDS SUMMARY | 2023-12-26 07:40 | XMS_ITS | Encounter Summary ---
Author Organization [employer] Address [address] [place] [address] Care Team Providers Care Ceiling Insulation Blower Name Role Phone Sheeba Castillo APRN, CNP Primary Care Provid er Encounter Details Date Type Department Care Team (Late st Contact Info) Description 07/22/2016 Correspondence [facility] [address] [place], [place] [phone] Fernanda Lancaster, POPEYEC [address] [place], [place] [phone] RETURN TO WORK AUTH Social History Tobacco Use Types Packs/Day Years Used Date Smoking Tobacco: Former Cigarettes 0.3 15 1 06/25/1999 - 04/25/2015 Smokeless Tobacco: Never Alcohol Use Standard Drinks/Week Comments Yes 0 (1 standard drink = 0.6 oz pur e alcohol) rarely Sex and Gender Information Value Date Recorded Sex Assigned at Female 05/09/2021 7:19 PM MANAGER LSW Gender Identity Female 05/09/2021 7:19 PM MANAGER LSW Sexual Orientation Straight 05/09/2021 7: 19 PM MANAGER LSW documented as of this encounter Plan of Treatment Not on file documented as of this encounter Visit Diagnoses Not on filedocumented in this encounter Care Teams Ceiling Insulation Blower Relationship Specialty Start Date End Date [place] [address] [place] [address] PCP - General Nurse Practitioner 07/20/16 documented as of this encounter
--- OUTSIDE RECORDS SUMMARY | 2023-12-26 07:40 | XMS_ITS | Encounter Summary ---
Author Organization [employer] Address [address] [place] [address] Care Team Providers Care Calciner Feeder Name Role Phone Sheeba Castillo APRN, CNP Primary Care Provid er Encounter Details Date Type Department Care Team (Late st Contact Info) Description 07/22/2016 Correspondence [facility] [address] [place], [place] [phone] Fernanda Lancaster, POPEYEC [address] [place], [place] [phone] RETURN TO WORK AUTH Social History Tobacco Use Types Packs/Day Years Used Date Smoking Tobacco: Former Cigarettes 0.3 15 1 06/25/1999 - 04/25/2015 Smokeless Tobacco: Never Alcohol Use Standard Drinks/Week Comments Yes 0 (1 standard drink = 0.6 oz pur e alcohol) rarely Sex and Gender Information Value Date Recorded Sex Assigned at Female 05/09/2021 7:19 PM SECOND CLASS WELDER Gender Identity Female 05/09/2021 7:19 PM SECOND CLASS WELDER Sexual Orientation Straight 05/09/2021 7: 19 PM SECOND CLASS WELDER documented as of this encounter Plan of Treatment Not on file documented as of this encounter Visit Diagnoses Not on filedocumented in this encounter Care Teams Calciner Feeder Relationship Specialty Start Date End Date Sheeba Castillo APRN, CNP [address] [place] [address] PCP - General Nurse Practitioner 07/20/16 documented as of this encounter
--- OUTSIDE RECORDS SUMMARY | 2023-12-26 07:40 | XMS_ITS | Encounter Summary ---
Author Organization [facility] Address [address] [place] [address] Care Team Providers Care Chick Room Supervisor Name Role Phone Sheeba Castillo APRN, CNP Primary Care Provid er Encounter Details Date Type Department Care Team (Late st Contact Info) Description 07/21/2016 Correspondence [place] [facility] [place] [address] [place], [place] [phone] Fernanda Lancaster PA-C [address] [place], [place] [phone] DISABILITY CLAIM FAMILY MEDICAL LEAVE Social History Tobacco Use Types Packs/Day Years Used Date Smoking Tobacco: Former Cigarettes 0.3 15 1 06/25/1999 - 04/25/2015 Smokeless Tobacco: Never Alcohol Use Standard Drinks/Week Comments Yes 0 (1 standard drink = 0.6 oz pur e alcohol) rarely Sex and Gender Information Value Date Recorded Sex Assigned at Female 05/09/2021 7:19 PM FERMENTATION SCIENTIST Gender Identity Female 05/09/2021 7:19 PM FERMENTATION SCIENTIST Sexual Orientation Straight 05/09/2021 7: 19 PM FERMENTATION SCIENTIST documented as of this encounter Plan of Treatment Not on file documented as of this encounter Visit Diagnoses Not on filedocumented in this encounter Care Teams Chick Room Supervisor Relationship Specialty Start Date End Date Sheeba Castillo APRN, CNP [address] [place] [address] PCP - General Nurse Practitioner 07/20/16 documented as of this encounter
--- NOTE | 2023-12-26 07:45 | CRLHL7_ITS ---
For Patients: As a result of the Cures Act, medical imaging exams and procedure reports are released immediately into your electronic medical record. You may view this report before your referring provider. If you have questions, please contact your health care provider. DIGITAL DIAGNOSTIC LEFT MAMMOGRAM USING TOMOSYNTHESIS AND COMPUTER-AIDED DETECTION LEFT BREAST ULTRASOUND CLINICAL HISTORY: LEFT breast lump. COMPARISON: 06/19/2023, 05/09/2022, 05/10/2021. TECHNIQUE: Digital LEFT mammogram in two projections with computer-aided detection. Tomosynthesis was used in this interpretation. Real-time ultrasound imaging of LEFT breast with imaging documentation. Scanning was performed by both the technologist and the radiologist. BREAST COMPOSITION: The breast is heterogeneously dense, which may obscure small masses. FINDINGS: 3D CC/MLO LEFT breast mammogram images submitted. Posttreatment changes noted. No adenopathy or suspicious calcifications. No architectural distortion. Targeted LEFT breast ultrasound performed at 2 o`clock 5 cm from the nipple. In this location there is an area of heterogeneously dense tissue which measures approximately 3 cm. This is separate from expected scar tissue closer to the nipple. IMPRESSION: Indeterminate area of dense heterogeneous tissue in the upper outer quadrant LEFT breast 2 o`clock 5 cm from the nipple. RECOMMENDATIONS: Ultrasound-guided core needle biopsy. Results and recommendations discussed with the patient. BI-RADS Category 4: Suspicious A lay language report of this examination will be provided to the patient. Dictated by Eusebio Devine MD @ 12/26/2023 8:51:20 AM /Dictated by: Eusebio Devine MD @ 12/26/2023 8:51:00 AM (Electronically Signed)
--- NOTE | 2023-12-26 08:15 | CRLHL7_ITS ---
For Patients: As a result of the Cures Act, medical imaging exams and procedure reports are released immediately into your electronic medical record. You may view this report before your referring provider. If you have questions, please contact your health care provider. PLEASE SEE DIGITAL DIAGNOSTIC LEFT MAMMOGRAM PERFORMED SAME DAY CRL:mendez simms/Dictated by: Eusebio Devine MD @ 12/26/2023 8:51:00 AM (Electronically Signed)
== END 2023-12-26 07:38 | disposition home or self-care (01) ==
PROVIDERS: PCP Family Medicine; Visit Provider Physician Assistant
DX: N63.20 Unspecified lump in the left breast, unspecified quadrant (principal); R92.2 Inconclusive mammogram; N64.4 Mastodynia
CPT/HCPCS: 76642; 77065; G0279

== ENCOUNTER 2024-01-10 08:02 | Outpatient (CLI) | payer OTHER, SELFPAY ==
--- OUTSIDE RECORDS SUMMARY | 2024-01-10 08:05 | XMS_ITS | Encounter Summary ---
Author Organization [employer] Address [address] [place] [address] Care Team Providers Care Snow Blower Name Role Phone Sheeba Castillo APRN, CNP Primary Care Provid er Encounter Details Date Type Department Care Team (Late st Contact Info) Description 07/21/2016 Correspondence [place] [facility] [address] [place], [place] [phone] Fernanda Lancaster PA-C [address] [place], [place] [phone] DISABILITY CLAIM FAMILY MEDICAL LEAVE Social History Tobacco Use Types Packs/Day Years Used Date Smoking Tobacco: Former Cigarettes 0.3 15 1 06/25/1999 - 04/25/2015 Smokeless Tobacco: Never Alcohol Use Standard Drinks/Week Comments Yes 0 (1 standard drink = 0.6 oz pur e alcohol) rarely Sex and Gender Information Value Date Recorded Sex Assigned at Female 05/09/2021 7:19 PM TRANSPORTATION SPECIALIST Gender Identity Female 05/09/2021 7:19 PM TRANSPORTATION SPECIALIST Sexual Orientation Straight 05/09/2021 7: 19 PM TRANSPORTATION SPECIALIST documented as of this encounter Plan of Treatment Not on file documented as of this encounter Visit Diagnoses Not on filedocumented in this encounter Care Teams Snow Blower Relationship Specialty Start Date End Date Sheeba Castillo APRN, CNP [address] [place] [address] PCP - General Nurse Practitioner 07/20/16 documented as of this encounter
--- OUTSIDE RECORDS SUMMARY | 2024-01-10 08:05 | XMS_ITS | Encounter Summary ---
Author Organization [employer] Address [address] [place] [address] Care Team Providers Care Ceiling Installer Name Role Phone Sheeba Castillo APRN, CNP Primary Care Provid er Encounter Details Date Type Department Care Team (Late st Contact Info) Description 07/22/2016 Correspondence [place] [facility] [address] [place], [place] [phone] Fernanda Lancaster, POPEYEC [address] [place], [place] [phone] RETURN TO WORK AUTH Social History Tobacco Use Types Packs/Day Years Used Date Smoking Tobacco: Former Cigarettes 0.3 15 1 06/25/1999 - 04/25/2015 Smokeless Tobacco: Never Alcohol Use Standard Drinks/Week Comments Yes 0 (1 standard drink = 0.6 oz pur e alcohol) rarely Sex and Gender Information Value Date Recorded Sex Assigned at Female 05/09/2021 7:19 PM JEWEL DIAMETER GAUGER Gender Identity Female 05/09/2021 7:19 PM JEWEL DIAMETER GAUGER Sexual Orientation Straight 05/09/2021 7: 19 PM JEWEL DIAMETER GAUGER documented as of this encounter Plan of Treatment Not on file documented as of this encounter Visit Diagnoses Not on filedocumented in this encounter Care Teams Ceiling Installer Relationship Specialty Start Date End Date [place] C[place] [address] [place] [address] PCP - General Nurse Practitioner 07/20/16 documented as of this encounter
--- OUTSIDE RECORDS SUMMARY | 2024-01-10 08:05 | XMS_ITS | Encounter Summary ---
Author Organization [facility] Address [address] [place] [address] Care Team Providers Care Public Health Outreach Worker Name Role Phone Sheeba Castillo APRN, CNP Primary Care Provid er Encounter Details Date Type Department Care Team (Late st Contact Info) Description 07/22/2016 Correspondence [place] [facility] [address] [place], [place] [phone] Fernanda Lancaster, POPEYEC [address] [place], [place] [phone] RETURN TO WORK AUTH Social History Tobacco Use Types Packs/Day Years Used Date Smoking Tobacco: Former Cigarettes 0.3 15 1 06/25/1999 - 04/25/2015 Smokeless Tobacco: Never Alcohol Use Standard Drinks/Week Comments Yes 0 (1 standard drink = 0.6 oz pur e alcohol) rarely Sex and Gender Information Value Date Recorded Sex Assigned at Female 05/09/2021 7:19 PM STNA Gender Identity Female 05/09/2021 7:19 PM STNA Sexual Orientation Straight 05/09/2021 7: 19 PM STNA documented as of this encounter Plan of Treatment Not on file documented as of this encounter Visit Diagnoses Not on filedocumented in this encounter Care Teams Public Health Outreach Worker Relationship Specialty Start Date End Date [place] [address] [place] [address] PCP - General Nurse Practitioner 07/20/16 documented as of this encounter
--- OUTSIDE RECORDS SUMMARY | 2024-01-10 08:05 | XMS_ITS | Clinical Summary ---
Author Organization [facility] Address [place], [place] [address] Care Team Providers Care Station Cashier Name Role Phone Noemi Abernathy MD Primary [...] 16 Negative Negative 02/15/2021 5:05 AM CDT [facility] TYPE 18 Negative Negative 02/15/2021 5:05 AM CDT [facility] OTHER HIGH RISK TYPES Negative Negative 02/15/2021 5:05 AM CDT [facility] Other (Cervical/Vagina l) 02/11/2021 12:00 PM CDT 02/14/2021 7:24 AM CDT Narrative [facility] - 02/15/2021 5:05 AM CDT HPV types 16, 18, 31, 33, 35, 39, 45, 51, 52, 56, 58, 59, 66 and 68 DNA were undetectable or below the pre-set threshold. Methodology: Lul Robyn 4800 HPV Test Noemi Abernathy MD 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 [facility] [address] [place] [address], from Last 3 Months or Most Recently Relevant to Health Maintenance Care Teams Station Cashier Relationship Specialty Start Date End Date Noemi Abernathy MD [address] [place] [address] PCP - General Family Practice 04/15/21
--- OUTSIDE RECORDS SUMMARY | 2024-01-10 08:05 | XMS_ITS | Encounter Summary ---
Author Organization [employer] Address [address] [place] [address] Care Team Providers Care Wrestling Coach Name Role Phone Sheeba Castillo APRN, CNP Primary Care Provid er Encounter Details Date Type Department Care Team (Late st Contact Info) Description 07/22/2016 Correspondence [place] [facility] [address] [place], [place] [phone] Fernanda Lancaster, POPEYEC [address] [place], [place] [phone] RETURN TO WORK AUTH Social History Tobacco Use Types Packs/Day Years Used Date Smoking Tobacco: Former Cigarettes 0.3 15 1 06/25/1999 - 04/25/2015 Smokeless Tobacco: Never Alcohol Use Standard Drinks/Week Comments Yes 0 (1 standard drink = 0.6 oz pur e alcohol) rarely Sex and Gender Information Value Date Recorded Sex Assigned at Female 05/09/2021 7:19 PM MACHINE CLERICAL VERIFIER Gender Identity Female 05/09/2021 7:19 PM MACHINE CLERICAL VERIFIER Sexual Orientation Straight 05/09/2021 7: 19 PM MACHINE CLERICAL VERIFIER documented as of this encounter Plan of Treatment Not on file documented as of this encounter Visit Diagnoses Not on filedocumented in this encounter Care Teams Wrestling Coach Relationship Specialty Start Date End Date Sheeba [place]illo APRN, CNP [address] [place] [address] PCP - General Nurse Practitioner 07/20/16 documented as of this encounter
--- OUTSIDE RECORDS SUMMARY | 2024-01-10 08:05 | XMS_ITS ---
Author Organization [employer] Address [address] [place] [address] Care Team Providers Care Band Master Name Role Phone Sheeba Castillo APRN, SIERRA [...] treatments are documented for this patient in [facility]. Treatments may have been administered in another system. Resolved Problems Problem Noted Date Diagnosed Date Resolved Date JANNET (generalized anxiety disorder) 01/18/2015 11/18/2015 Situational stress 01/18/2015 6 Chronic headaches 08/11/2011 12/17/2017 Concussion 08/11/2011 12/17/2017 Overview: February 2008, thrown from horse. History of tobacco use 08/11/201112/17 Hx of tonsillectomy 08/11/2011 12/15/19 17 Female genital symptoms 12/19/200404/25 Overview: LW Onset: [id number] ; Pelvic Pain Female Irritable bowel syndrome 11/29/2002
--- OUTSIDE RECORDS SUMMARY | 2024-01-10 08:05 | XMS_ITS | Clinical Summary ---
Author Organization [facility] Address [address] [place] [address] Care Team Providers Care Gum Machine Filler Name Role Phone Sheeba Castillo APRN, CNP Primary Care Provid er Source Comments You are receiving this document as you are listed as the primary care provider,follow-up provider, or the patient has been referred to you for consultation.This is in compliance with the Medicare andSelect [facility] EHR Incentive Program,which states Providers who transition their patient to another setting of careor provider of care or refers their patient to another provider of care shouldprovide summary care record for each transition of care or referral. [facility] Allergies No known active allergies Medications Medication [...] Tablet 3 03/15/2020 Active norethindrone-eth estradiol (PIRMELLA 1/35) 1-35 MG-MCG tabletIndications:W ell adult exam Take [...] Female genital symptoms 12/19/200404/25 Overview: LW Onset: 32Crt99 ; Pelvic Pain Female Irritable bowel syndrome 11/29/2002 Immunizations Name Administration Dates Next Due Flu Vac Preserv Free (3+yrs) 03/04/2012, 03/10/2011,03/10/2010,2008,04/17/2008,04/08/2008,04/03/2007,1 H1n1 Laiv Medimmune 2-49 Yr (Intranasal) 04/13/2009 H1n1 Miv Sanofi 3+ Yr (Injected) 06/09/2013 HepB Adult (Engerix-B, 20+ y rs, 3 dose series) 02/08/2006,01/02/2002 HepB, Unspecified Formulation 08/09/2001 Influenza IIV4 (Quadrivalent ) 0.5mL (76673) 03/31/2019,03/22/2018,03/21/2018,2016,03/23/2016,03/24/2015,03/23/2014 PCV13 (Prevnar) 05/09/2021(Deferred: Patient Ref used) PCV20 (Fnsviar13) 03/10/2022(Deferred: Patient Refused - Patient will complete [...] Sex Assigned at Female 05/09/2021 7:19 PM HIGHBALLER Gender Identity Female 05/09/2021 7:19 PM HIGHBALLER Sexual Orientation Straight 05/09/2021 7: 19 PM HIGHBALLER Last Filed Vital Signs Vital Sign Reading Time Taken Comments Blood Pressure 140/92 05/12/2022 2:52 PM HIGHBALLER Pulse 88 05/12/2022 2:52 PM HIGHBALLER Temperature 36.8 ??C (98.2 ??F) 05/12/2022 2:52 PM CS T Respiratory Rate 16 08/23/2020 11:41 AM HIGHBALLER Oxygen Saturation 98% 05/12/2022 2:52 PM HIGHBALLER Inhaled Oxygen Concentration - - Weight 96.2 kg (212 lb) 01/13/2022 8:26 AM CDT Height 167.6 cm (5' 6) 08/23/2020 10:00 AM HIGHBALLER Body Mass Index 34.22 08/23/2020 10:00 AM HIGHBALLER Plan of Treatment Health Maintenance Due Date Last Done Comments Pneumococcal (1 - PCV) 1983 Cervical Cancer Screening 12/17/20202017, 09/30/2014, 08/11/2011, Additional history exists Adult Preventive Visit 03/15/2021 , 12/19/2018, 12/17/2017, Additional history exists Mammogram 05/25/2022 05/25/2021 (Comp leted), 01/15/2018 COVID-19 Vaccine ( season) 2023 03/20/2023, 04/21/2022, 03/23/2021, Additional history exists Influenza (#1) 2024 03/20/2023, 03/26, 03/23/2021, Additional history exists Cholesterol 04/08/2025 04/08/2020, 03/27, 02/20/2019, Additional history exists Colonoscopy 08/23/2025 08/23/2020, 09/22/2015 DTaP/Tdap/Td (3 - Tdap) 02/11/2031 02/12/20, 07/04/2010, 11/30/2003 HepB Completed 02/08/2006, 12/23, 08/09/2001 HIV Screening (Preventive Services) Completed 03/24/2015 Hep C Screening (Preventive Services) Completed 03/24/2015 Zoster/Shingles Completed 08/03/2022, 03/14/2019 HepA Aged Out No longer eligi ble [...] COLON, SCREENING/DIAGNOSTI C Routine 08/23/2020 10:45 AM HIGHBALLER Left sided colitis with rectal bleeding (HRC) [...] * Endoscopy, colon, diagnostic (08/23/2020 10:45 AM HIGHBALLER) 08/23/2020 10:4 5 AM HIGHBALLER Narrative GI ([facility]) - 08/23/2020 10:45 AM HIGHBALLER Patient Name: Idania Duarte Procedure Date: 08/23/2020 [...] oxygen saturations were monitored ? continuously. The [id number] was ? introduced through the anus and [...] Procedure Code(s): ?? --- Professional --- ? 42821, Colonoscopy, flexible; with ? removal of tumor(s), polyp(s), or ? other lesion(s) by snare technique ? 21931, 59, Colonoscopy, flexible; ? with biopsy, single or multiple ? 23180, Moderate sedation; each ? additional 15 minutes [...] (additional time may ? be reported with 81487, as ? appropriate) Diagnosis Code(s): ?? --- Professional --- ? K63.5, Polyp of colon ? K51.40, Inflammatory polyps of colon ? without complications ? K51.50, Left sided colitis without ? complications CPT copyright 2019 [employer] [place] [employer]. All rights reserved. The codes documented in this report are preliminary and upon nurse staff industrial review may be revised to meet current [...] and oxygen saturations were monitored continuously. The [id number] was introduced through the anus and advanced [...] GI clinic. Procedure Code(s): --- Professional --- 73757, Colonoscopy, flexible; with removal of tumor(s), polyp(s), or other lesion(s) by snare technique 27053, 59, Colonoscopy, flexible; with biopsy, single or multiple 10774, Moderate sedation; each additional 15 minutes intraservice time G0500, Moderate sedation services provided by the same physician or other qualified health managed care director performing a gastrointestinal endoscopic service that sedation supports, requiring the presence of an independent trained observer to assist in the monitoring of the patient's level of consciousness and physiological status; initial 15 minutes of intra-service time; patient age 5 years or older (additional time may be reported with 71347, as appropriate) Diagnosis Code(s): --- Professional --- K63.5, Polyp of colon K51.40, Inflammatory polyps of colon without complications K51.50, Left sided colitis without complications CPT copyright 2019 [employer] [place] [employer]. All rights reserved. The codes documented in this report are preliminary and upon nurse staff industrial review may be revised to meet current compliance requirements. Мария Rasmussen MD 08/23/2020 11:18:43 AM This document has been electronically signed. Number of Addenda: 0 Note Initiated On: 08/23/2020 10:45 AM Endoscopy Report Eusebio Haines MD PN GI PROCEDURE [facility] ([facility] [place], [place] * Lipid Panel and Direct LDL(If Needed) (04/08/2020 3:56 PM CDT) Cholesterol 175 0 - 199 mg/dL 04/08/2020 4:39 PM [facility] Triglyceride 108 <=149 mg/dL 04/08/2020 4:39 PM [facility] HDL Cholesterol 59 >=40 mg/dL 0 4:39 PM [facility] LDL, Calculated 94 <130 mg/dL 0 4:39 PM [facility] Non HDL Chol, Calculated 116 mg/dL 04/08/2020 4:39 PM [facility] Cholesterol/HDL Ratio 3.0 04/08/2020 4:39 PM [facility] Hours Fasting 4 04/08/2020 4:39 PM [facility] Blood Venipuncture / Unknown 04/08/2020 3:56 PM CDT 04/08/2020 3:56 PM CDT Idania Andrade MD LAB_1 [facility] [address] [place] [address], [facility] [phone] * MM Mammogram Screening Bilat W CAD [...] CDT FINAL GYNECOLOGICAL CYTOLOGY REPORT Pathology #: [id number] ?Date Obtained: 12/17/2017 ? Date Received: 12/18/2017 [...] and false-negative reports [place] occur[place] [address] Idania Andrade MD LAB_1 Performing Organization Address [facility] de Phone Number PN SOFT [address] [place], [place] [address] * HIV ANTIBODY (03/24/2015 11:39 AM CDT) HIV 1/HIV 2 Non-React Non-Reacti ve HP CONVERSION 03/24/2015 11:3 9 AM CDT 03/24/2015 2:53 PM CDT Narrative HP CONVERSION - 03/25/2015 12:01 [place] [address] Kinga Pickett APRN, CNP LAB_1 Performing Organization Address [facility] de Phone Number HP CONVERSION * Hepatitis C Antibody, with Reflex (03/24/2015 11:39 AM CDT) Hepatitis C Antibody Non-React Non-Reacti ve HP CONVERSION 03/24/2015 11:3 9 AM CDT 03/24/2015 2:53 PM CDT Narrative HP CONVERSION - 03/24/2015 9:00 PM CDT Performed at [address] [address] Kinga Pickett APRN, CNP LAB_1 Performing Organization Address [facility] de Phone Number HP CONVERSION from Last [...] 1:10 PM 07/12/2016 9:07 PM Care Teams Gum Machine Filler Relationship Specialty Start Date End Date Sheeba Castillo APRN, CLOUD SYSTEMS ADMINISTRATOR [address] [place] [address] PCP - General Nurse Practitioner 07/20/16
--- NOTE | 2024-01-10 08:15 | CRLHL7_ITS ---
For Patients: As a result of the Century Cures Act, medical imaging exams and procedure reports are released immediately into your electronic medical record. You may view this report before your referring provider. If you have questions, please contact your health care provider. ULTRASOUND-GUIDED BREAST BIOPSY AND POST-BIOPSY DIGITAL MAMMOGRAM FOR BIOPSY MARKER PLACEMENT CLINICAL HISTORY: Indeterminate masslike area. COMPARISON STUDIES: 12/26/2023. TECHNIQUE: Real-time ultrasound with image documentation was used for targeting the breast lesion. Core biopsy specimens were obtained using an automated gun with a 18-gauge biopsy needle. Post-biopsy CC and ML digital mammograms were obtained to document position of the biopsy marker. CONSENT and TIME OUT: The procedure, risks, and alternatives were explained to the patient and a consent was signed. [place] Protocol was followed including pre-procedure verification that relevant information/documentation was available, reviewed and properly matched to the patient; consent accurate and complete; and equipment and supplies available. Time Out was conducted just prior to starting procedure to verify the four required elements: patient identity, correct side/site marked (if applicable), procedure, relevant images/results properly labeled and displayed (if applicable). PROCEDURE: The patient was positioned supine on the ultrasound table. The breast was prepped with ChloraPrep. 8 cc of 1 percent lidocaine used for local anesthesia. Core samples were obtained. A sterile metal biopsy clip was placed percutaneously to joey the lesion position within the breast. The specimens were placed in 10% formalin and sent to the pathology department. Pressure was held on the biopsy site until all bleeding subsided. The skin incision was closed with Steri-Strips. An ice pack was positioned over the biopsy site. Post-biopsy instructions were reviewed with the patient, and a written copy was given to her. LATERALITY: LEFT breast. LESION: Ill-defined masslike area measuring 3 cm at 2 o`clock 5 cm from the nipple. SUSPICION FOR MALIGNANCY: Low. NUMBER OF SAMPLES: 5. BIOPSY CLIP SHAPE: Oval. PROXIMITY OF CLIP TO TARGET: Within the lesion. IMPRESSION: Ultrasound-guided breast biopsy. When the pathology report is available, an addendum to this report will be made. ACR not applicable Dictated by Eusebio Devine MD @ 01/10/2024 12:21:56 PM jj/Dictated by: Eusebio Devine MD @ 01/10/2024 12:21:00 PM (Electronically Signed)
--- NOTE | 2024-01-10 09:00 | CRLHL7_ITS ---
For Patients: As a result of the Century Cures Act, medical imaging exams and procedure reports are released immediately into your electronic medical record. You may view this report before your referring provider. If you have questions, please contact your health care provider. PLEASE SEE ULTRASOUND-GUIDED LEFT BREAST BIOPSY PERFORMED SAME DAY CRL:mendez simms/Dictated by: Eusebio Devine MD @ 01/10/2024 12:19:00 PM (Electronically Signed)
== END 2024-01-10 08:03 | disposition home or self-care (01) ==
LOC: US 08:02
PROVIDERS: PCP Family Medicine; Visit Provider Physician Assistant
DX: N63.20 Unspecified lump in the left breast, unspecified quadrant (principal); N60.32 Fibrosclerosis of left breast; R92.8 Other abnormal and inconclusive findings on diagnostic imaging of breast
CPT/HCPCS: 19083; 77065; 88305; 88341; A4648; A4649

== ENCOUNTER 2024-02-28 14:33 | Outpatient (CLI) | payer OTHER, SELFPAY ==
--- OUTSIDE RECORDS SUMMARY | 2024-02-28 14:36 | XMS_ITS | Clinical Summary ---
Author Organization [facility] Address [place], [place] [address] Care Team Providers Care Shank Scourer Name Role Phone Noemi Abernathy MD Primary [...] Pap test for age 21-65 02/12/2024 02/11/2021 COVID-19 vaccine series ( season) 2024 03/23/2021 Influenza for age 9-49 02/24/2024 Pneumococcal series [...] 16 Negative Negative 02/15/2021 5:05 AM CDT [facility] TYPE 18 Negative Negative 02/15/2021 5:05 AM CDT [facility] OTHER HIGH RISK TYPES Negative Negative 02/15/2021 5:05 AM CDT [facility] Other (Cervical/Vagina l) 02/11/2021 12:00 PM CDT 02/14/2021 7:24 AM CDT Narrative [facility] - 02/15/2021 5:05 AM CDT HPV types 16, 18, 31, 33, 35, 39, 45, 51, 52, 56, 58, 59, 66 and 68 DNA were undetectable or below the pre-set threshold. Methodology: Lul Robyn 4800 HPV Test Noemi Abernathy MD 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 [facility] [address] [place] [address], from Last 3 Months or Most Recently Relevant to Health Maintenance Care Teams Shank Scourer Relationship Specialty Start Date End Date Noemi Abernathy MD [address] [place] [address] PCP - General Family Practice 04/15/21
--- OUTSIDE RECORDS SUMMARY | 2024-02-28 14:36 | XMS_ITS | Clinical Summary ---
Author Organization [facility] Address [address] [place] [address] Care Team Providers Care Credit Risk Analytics Manager Name Role Phone Sheeba Castillo APRN, CNP Primary Care Provid er Source Comments You are receiving this document as you are listed as the primary care provider,follow-up provider, or the patient has been referred to you for consultation.This is in compliance with the Medicare and[facility] EHR Incentive Program,which states Providers who transition their patient to another setting of careor provider of care or refers their patient to another provider of care shouldprovide summary care record for each transition of care or referral. [facility] Allergies No known active allergies Medications Medication [...] Ulcerative colitis with rectal bleeding 07/25/19 17 Overview (12/17/2017): On lialda, cholestyramin, and dicyclomine C. difficile colitis 07/25/2016 BCC (basal cell carcinoma), leg 08/11/2011 Overview (01/27/2016): 07/09/2008: left upper thigh HTN (hypertension) 08/11/2011 Overweight 08/11/2011 Malignant melanoma of skin of trunk, except scro nelda 11/01/2010 Overview (02/14/2017): 07/09/2008, mid-abdomen ; Melanoma Trunk Resolved Problems Problem Noted Date Diagnosed Date Resolved Date JANNET (generalized anxiety disorder) 01/18/2015 11/18/2015 Situational stress 01/18/2015 6 Chronic headaches 08/11/2011 12/17/2017 Concussion 08/11/2011 12/17/2017 Overview (01/27/2016): February 2008, thrown from horse. History of tobacco use 08/11/201112/17 Hx of tonsillectomy 08/11/2011 12/15/19 17 Female genital symptoms 12/19/200404/25 Overview (02/14/2017): LW Onset: [id number] ; Pelvic Pain Female Irritable bowel syndrome 11/29/2002 Immunizations Name Administration Dates Next Due Flu Vac Preserv Free (3+yrs) 03/04/2012, 03/10/2011,03/10/2010,2008,04/17/2008,04/08/2008,04/03/2007,1 H1n1 Laiv Medimmune 2-49 Yr (Intranasal) 04/13/2009 H1n1 Miv Sanofi 3+ Yr (Injected) 06/09/2013 HepB Adult (Engerix-B, 20+ y rs, 3 dose series) 02/08/2006,01/02/2002 HepB, Unspecified Formulation 08/09/2001 Influenza IIV4 (Quadrivalent ) 0.5mL (31512) 03/31/2019,03/22/2018,03/21/2018,2016,03/23/2016,03/24/2015,03/23/2014 PCV13 (Prevnar) 05/09/2021(Deferred: Patient Ref used) PCV20 ([id number]) 03/10/2022(Deferred: Patient Refused - Patient will complete [...] Sex Assigned at Female 05/09/2021 7:19 PM FINANCIAL REPORTING ADVISOR Gender Identity Female 05/09/2021 7:19 PM FINANCIAL REPORTING ADVISOR Sexual Orientation Straight 05/09/2021 7: 19 PM FINANCIAL REPORTING ADVISOR Last Filed Vital Signs Vital Sign Reading Time Taken Comments Blood Pressure 140/92 05/12/2022 2:52 PM FINANCIAL REPORTING ADVISOR Pulse 88 05/12/2022 2:52 PM FINANCIAL REPORTING ADVISOR Temperature 36.8 ??C (98.2 ??F) 05/12/2022 2:52 PM CS T Respiratory Rate 16 08/23/2020 11:41 AM FINANCIAL REPORTING ADVISOR Oxygen Saturation 98% 05/12/2022 2:52 PM FINANCIAL REPORTING ADVISOR Inhaled Oxygen Concentration - - Weight 96.2 kg (212 lb) 01/13/2022 8:26 AM CDT Height 167.6 cm (5' 6) 08/23/2020 10:00 AM FINANCIAL REPORTING ADVISOR Body Mass Index 34.22 08/23/2020 10:00 AM FINANCIAL REPORTING ADVISOR Plan of Treatment Health Maintenance Due Date [...] 08/23/2020, 09/22/2015 DTaP/Tdap/Td (3 - Tdap) 02/11/2031 02/12/20 21, 07/04/2010, 11/30/2003 HepB Completed 02/08/2006, 12/23, 08/09/2001 [...] COLON, SCREENING/DIAGNOSTI C Routine 08/23/2020 10:45 AM FINANCIAL REPORTING ADVISOR Left sided colitis with rectal bleeding (HRC) [...] * Endoscopy, colon, diagnostic (08/23/2020 10:45 AM FINANCIAL REPORTING ADVISOR) 08/23/2020 10:4 5 AM FINANCIAL REPORTING ADVISOR Narrative GI ([facility]) - 08/23/2020 10:45 AM FINANCIAL REPORTING ADVISOR Patient Name: Idania Duarte Procedure Date: 08/23/2020 [...] MD, Marni Smith Referring MD: ?Eusebio Haines [facility]: ? Midazolam 6 mg IV, Fentanyl 125 [...] oxygen saturations were monitored ? continuously. The -[id number] was ? introduced through the anus and [...] Procedure Code(s): ?? --- Professional --- ? 83691, Colonoscopy, flexible; with ? removal of tumor(s), polyp(s), or ? other lesion(s) by snare technique ? 01178, 59, Colonoscopy, flexible; ? with biopsy, single or multiple ? 04921, Moderate sedation; each ? additional 15 minutes [...] (additional time may ? be reported with 65235, as ? appropriate) Diagnosis Code(s): ?? --- Professional --- ? K63.5, Polyp of colon ? K51.40, Inflammatory polyps of colon ? without complications ? K51.50, Left sided colitis without ? complications CPT copyright 2019 [employer]. All rights reserved. The codes documented in this report are preliminary and upon wash barrel leader review may be revised to meet current [...] and oxygen saturations were monitored continuously. The [id number] was introduced through the anus and advanced [...] GI clinic. Procedure Code(s): --- Professional --- 76374, Colonoscopy, flexible; with removal of tumor(s), polyp(s), or other lesion(s) by snare technique 18095, 59, Colonoscopy, flexible; with biopsy, single or multiple 52949, Moderate sedation; each additional 15 minutes intraservice time G0500, Moderate sedation services provided by the same physician or other qualified health residential care facility manager performing a gastrointestinal endoscopic service that sedation supports, requiring the presence of an independent trained observer to assist in the monitoring of the patient's level of consciousness and physiological status; initial 15 minutes of intra-service time; patient age 5 years or older (additional time may be reported with 32620, as appropriate) Diagnosis Code(s): --- Professional --- K63.5, Polyp of colon K51.40, Inflammatory polyps of colon without complications K51.50, Left sided colitis without complications CPT copyright 2019 [employer]. All rights reserved. The codes documented in this report are preliminary and upon wash barrel leader review may be revised to meet current compliance requirements. Мария Rasmussen MD 08/23/2020 11:18:43 AM This document has been electronically signed. Number of Addenda: 0 Note Initiated On: 08/23/2020 10:45 AM Endoscopy Report Eusebio Haines MD PN GI PROCEDURE [facility] [place], [place] * Lipid Panel and Direct LDL(If Needed) (04/08/2020 3:56 PM CDT) Cholesterol 175 0 - 199 mg/dL 04/08/2020 4:39 PM [facility] Triglyceride 108 <=149 mg/dL 04/08/2020 4:39 PM [facility] HDL Cholesterol 59 >=40 mg/dL 0 4:39 PM [facility] LDL, Calculated 94 <130 mg/dL 0 4:39 PM [facility] Non HDL Chol, Calculated 116 mg/dL 04/08/2020 4:39 PM [facility] Cholesterol/HDL Ratio 3.0 04/08/2020 4:39 PM [facility] Hours Fasting 4 04/08/2020 4:39 PM [facility] Blood Venipuncture / Unknown 04/08/2020 3:56 PM CDT 04/08/2020 3:56 PM CDT Idania Andrade MD LAB_[address] [address] [place] [address], [facility] [phone] * MM Mammogram Screening Bilat W CAD [...] CDT FINAL GYNECOLOGICAL CYTOLOGY REPORT Pathology #: [id number] ?Date Obtained: 12/17/2017 ? Date Received: 12/18/2017 [...] and false-negative reports may occur. Performed at [facility], [address] [place] [address] Idania Andrade MD LAB_1 Performing Organization Address [facility] de Phone Number PN SOFT [address] [place], [place] [address] * HIV ANTIBODY (03/24/2015 11:39 AM CDT) HIV 1/HIV 2 Non-React Non-Reacti ve HP CONVERSION 03/24/2015 11:3 9 AM CDT 03/24/2015 2:53 PM CDT Narrative HP CONVERSION - 03/25/2015 12:01 AM CDT Performed at [facility], [address] [place] [address] Kinga Pickett APRN, CNP LAB_1 Performing Organization Address [facility] de Phone Number HP CONVERSION * Hepatitis C Antibody, with Reflex (03/24/2015 11:39 AM CDT) Hepatitis C Antibody Non-React Non-Reacti ve HP CONVERSION 03/24/2015 11:3 9 AM CDT 03/24/2015 2:53 PM CDT Narrative HP CONVERSION - 03/24/2015 9:00 PM CDT Performed at [facility], [address] [place] [id number] Kinga Pickett APRN, CNP LAB_1 Performing Organization Address [facility] de Phone Number HP CONVERSION from [...] 1:10 PM 07/12/2016 9:07 PM Care Teams Credit Risk Analytics Manager Relationship Specialty Start Date End Date Sheeba Castillo, QUARTZ ORIENTATOR, CAN CLOSING MACHINE OPERATOR [address] [place] [address] PCP - General Nurse Practitioner 07/20/16
--- OUTSIDE RECORDS SUMMARY | 2024-02-28 14:36 | XMS_ITS | Encounter Summary ---
Author Organization [employer] Address [address] [place] [address] Care Team Providers Care Guest Experience Specialist Name Role Phone Sheeba Castillo APRN, CNP Primary Care Provid er Encounter Details Date Type Department Care Team (Late st Contact Info) Description 07/22/2016 Correspondence [facility] [address] [place], [place] [phone] Fernanda Lancaster, POPEYEC [address] [place], [place] [phone] RETURN TO WORK AUTH Social History Tobacco Use Types Packs/Day Years Used Date Smoking Tobacco: Former Cigarettes 0.3 15 1 06/25/1999 - 04/25/2015 Smokeless Tobacco: Never Alcohol Use Standard Drinks/Week Comments Yes 0 (1 standard drink = 0.6 oz pur e alcohol) rarely Sex and Gender Information Value Date Recorded Sex Assigned at Female 05/09/2021 7:19 PM CAMPAIGN CONSULTANT Gender Identity Female 05/09/2021 7:19 PM CAMPAIGN CONSULTANT Sexual Orientation Straight 05/09/2021 7: 19 PM CAMPAIGN CONSULTANT documented as of this encounter Plan of Treatment Not on file documented as of this encounter Visit Diagnoses Not on filedocumented in this encounter Care Teams Guest Experience Specialist Relationship Specialty Start Date End Date Sheeba Castillo APRN, CNP [address] [place] [address] PCP - General Nurse Practitioner 07/20/16 documented as of this encounter
--- OUTSIDE RECORDS SUMMARY | 2024-02-28 14:36 | XMS_ITS ---
Author Organization [employer] Address [address] [place] [address] Care Team Providers Care Ice Rink Attendant Name Role Phone Sheeba Castillo APRN, SIERRA [...] Overview (02/14/2017): 07/09/2008, mid-abdomen ; Melanoma Trunk Current Oncology Plans No current plan information found. Past Plans Radiation Treatments * No radiation treatments are documented for this patient in [facility]. Treatments may have been administered in another system. Resolved Problems Problem Noted Date Diagnosed Date Resolved Date JANNET (generalized anxiety disorder) 01/18/2015 11/18/2015 Situational stress 01/18/2015 6 Chronic headaches 08/11/2011 12/17/2017 Concussion 08/11/2011 12/17/2017 Overview (01/27/2016): February 2008, thrown from horse. History of tobacco use 08/11/201112/17 Hx of tonsillectomy 08/11/2011 12/15/19 17 Female genital symptoms 12/19/200404/25 Overview (02/14/2017): LW Onset: [id number] ; Pelvic Pain Female Irritable bowel syndrome 11/29/2002
--- OUTSIDE RECORDS SUMMARY | 2024-02-28 14:37 | XMS_ITS | Encounter Summary ---
Author Organization [employer] Address [address] [place] [address] Care Team Providers Care Ancillary Services Manager Name Role Phone Sheeba Castillo APRN, CNP Primary Care Provid er Encounter Details Date Type Department Care Team (Late st Contact Info) Description 07/21/2016 Correspondence [facility] [address] [place], [place] [phone] Fernanda Lancaster PA-C [address] [place], [place] [phone] DISABILITY CLAIM FAMILY MEDICAL LEAVE Social History Tobacco Use Types Packs/Day Years Used Date Smoking Tobacco: Former Cigarettes 0.3 15 1 06/25/1999 - 04/25/2015 Smokeless Tobacco: Never Alcohol Use Standard Drinks/Week Comments Yes 0 (1 standard drink = 0.6 oz pur e alcohol) rarely Sex and Gender Information Value Date Recorded Sex Assigned at Female 05/09/2021 7:19 PM RESPITE PROVIDER Gender Identity Female 05/09/2021 7:19 PM RESPITE PROVIDER Sexual Orientation Straight 05/09/2021 7: 19 PM RESPITE PROVIDER documented as of this encounter Plan of Treatment Not on file documented as of this encounter Visit Diagnoses Not on filedocumented in this encounter Care Teams Ancillary Services Manager Relationship Specialty Start Date End Date Sheeba Castillo APRN, CNP [address] [place] [address] PCP - General Nurse Practitioner 07/20/16 documented as of this encounter
--- OUTSIDE RECORDS SUMMARY | 2024-02-28 14:37 | XMS_ITS | Encounter Summary ---
Author Organization [employer] Address [address] [place] [address] Care Team Providers Care Media Services Coordinator Name Role Phone Sheeba Castillo APRN, CNP Primary Care Provid er Encounter Details Date Type Department Care Team (Late st Contact Info) Description 07/22/2016 Correspondence [facility] [address] [place], [place] [phone] Fernanda Lancaster, POPEYEC [address] [place], [place] [phone] RETURN TO WORK AUTH Social History Tobacco Use Types Packs/Day Years Used Date Smoking Tobacco: Former Cigarettes 0.3 15 1 06/25/1999 - 04/25/2015 Smokeless Tobacco: Never Alcohol Use Standard Drinks/Week Comments Yes 0 (1 standard drink = 0.6 oz pur e alcohol) rarely Sex and Gender Information Value Date Recorded Sex Assigned at Female 05/09/2021 7:19 PM SPINNER BOX Gender Identity Female 05/09/2021 7:19 PM SPINNER BOX Sexual Orientation Straight 05/09/2021 7: 19 PM SPINNER BOX documented as of this encounter Plan of Treatment Not on file documented as of this encounter Visit Diagnoses Not on filedocumented in this encounter Care Teams Media Services Coordinator Relationship Specialty Start Date End Date Sheeba [place]N, CNP [address] [place] [address] PCP - General Nurse Practitioner 07/20/16 documented as of this encounter
--- OUTSIDE RECORDS SUMMARY | 2024-02-28 14:37 | XMS_ITS | Encounter Summary ---
Author Organization [employer] Address [address] [place] [address] Care Team Providers Care Translational Specialist Name Role Phone Sheeba Castillo APRN, CNP Primary Care Provid er Encounter Details Date Type Department Care Team (Late st Contact Info) Description 07/22/2016 Correspondence [facility] [address] [place], [place] [phone] Fernanda Lancaster, POPEYEC [address] [place], [place] [phone] RETURN TO WORK AUTH Social History Tobacco Use Types Packs/Day Years Used Date Smoking Tobacco: Former Cigarettes 0.3 15 1 06/25/1999 - 04/25/2015 Smokeless Tobacco: Never Alcohol Use Standard Drinks/Week Comments Yes 0 (1 standard drink = 0.6 oz pur e alcohol) rarely Sex and Gender Information Value Date Recorded Sex Assigned at Female 05/09/2021 7:19 PM AIRSET MOLDER Gender Identity Female 05/09/2021 7:19 PM AIRSET MOLDER Sexual Orientation Straight 05/09/2021 7: 19 PM AIRSET MOLDER documented as of this encounter Plan of Treatment Not on file documented as of this encounter Visit Diagnoses Not on filedocumented in this encounter Care Teams Translational Specialist Relationship Specialty Start Date End Date Sheeba [place] CNP [address] [place] [address] PCP - General Nurse Practitioner 07/20/16 documented as of this encounter
--- NOTE | 2024-02-28 15:30 | CRLHL7_ITS ---
For Patients: As a result of the Century Cures Act, medical imaging exams and procedure reports are released immediately into your electronic medical record. You may view this report before your referring provider. If you have questions, please contact your health care provider. DXA BONE MINERAL DENSITY STUDY Reason for exam: On aromatase inhibitor. Current height (in): 67. Weight (lb): 181. Menopause age: 47. Ethnicity: White. 1. Have you had a previous hip or vertebral fracture? No. 2. Have you had any fractures during your adult life which did not result from significant trauma (e.g., auto accident)? No. 3. Did either of your parents have a hip fracture? No. 4. Do you smoke? No. 5. Have you ever taken Glucocorticoids? No. 6. Do you have rheumatoid arthritis? No. 7. Do you have secondary osteoporosis? No. 8. Do you drink 3 or more alcoholic drinks per day? No. 9. Are you being treated for osteoporosis? No. 10. Have you ever taken any of the following medications: Actonel, Evista, Fosamax, Miacalcin, Reclast, Boniva, Forteo, HRT (i.e. estrogen/hormone therapy), Protelos, Prolia, Vitamin D, Calcium, other ??? please specify. ANSWER: Yes, vitamin D, calcium. 11. Do you have any of the following medical conditions: Anorexia or bulimia, asthma or emphysema, end stage renal disease, hyperparathyroidism, any seizure disorders, cancer, inflammatory bowel diseases, hysterectomy, other ??? please specify. ANSWER: Yes, cancer, inflammatory bowel disease. 12. What was your maximum height (inches)? 68. 13. Do you perform weight bearing exercise regularly? No. 14. Do you regularly consume dairy products? No. 15. Do you drink caffeinated beverages? Yes. 16. At what age did your period start? 17. 17. Are you premenopausal? No. 18. How many full term pregnancies have you had? Zero. 19. Have you ever missed your period for more than 6 months in a row (not including or menopause)? No. TECHNIQUE: Bone mineral density study was performed using the [employer]. FINDINGS: The results of the study expressed as bone mineral density (BMD) are as follows: Lumbar spine L1 to L4: BMD: 0.960 g/cm2. T-score: -0.8. Z-score: -0.3. Neck Left: BMD: 0.623 g/cm2. T-score: -2.0. Z-score: -1.5. Right: BMD: 0.607 g/cm2. T-score: -2.2. Z-score: -1.6. Total Left: BMD: 0.876 g/cm2. T-score: -0.5. Z-score: -0.2. Right: BMD: 0.769 g/cm2. T-score: -1.4. Z-score: -1.1. IMPRESSION: Osteopenia. COMPARISON: Compared with scan of 02/22/2022, the bone mineral density has decreased by 8.8 percent at the spine and decreased by 1.7 percent at the hip. FRAX 10-year Fracture Risk Major Osteoporotic Fracture: 4.4 percent Hip Fracture: 0.7 percent Reported Risk Factors: [place] () Neck BMD=0.607, BMI=28.3 Eusebio Devine M.D. Diagnostic Radiologist [email or web address] CHIP/shilpi / bM/Dictated by: Eusebio Devine MD @ 02/28/2024 3:47:00 PM (Electronically Signed)
== END 2024-02-28 14:34 | disposition home or self-care (01) ==
LOC: RAD 14:35
PROVIDERS: PCP Family Medicine; Visit Provider Physician Assistant
DX: Z13.820 Encounter for screening for osteoporosis (principal); M85.89 Other specified disorders of bone density and structure, multiple sites; Z79.811 Long term (current) use of aromatase inhibitors
CPT/HCPCS: 77080

== ENCOUNTER 2024-03-12 18:37 | Outpatient (CLI) | payer OTHER, SELFPAY ==
--- OUTSIDE RECORDS SUMMARY | 2024-03-12 18:39 | XMS_ITS | Encounter Summary ---
Author Organization [employer] Address [address] [place] [address] Care Team Providers Care Fire Safety Manager Name Role Phone Sheeba Castillo APRN, CNP Primary Care Provid er Encounter Details Date Type Department Care Team (Late st Contact Info) Description 07/22/2016 Correspondence [facility] [address] [place], [place] [phone] Fernanda Lancaster PA-C [address] [place] [address] RETURN TO WORK AUTH Social History Tobacco Use Types Packs/Day Years Used Date Smoking Tobacco: Former Cigarettes 0.3 15 1 06/25/1999 - 04/25/2015 Smokeless Tobacco: Never Alcohol Use Standard Drinks/Week Comments Yes 0 (1 standard drink = 0.6 oz pur e alcohol) rarely Sex and Gender Information Value Date Recorded Sex Assigned at Female 05/09/2021 7:19 PM SCRIPT COORDINATOR Gender Identity Female 05/09/2021 7:19 PM SCRIPT COORDINATOR Sexual Orientation Straight 05/09/2021 7: 19 PM SCRIPT COORDINATOR documented as of this encounter Plan of Treatment Not on file documented as of this encounter Visit Diagnoses Not on filedocumented in this encounter Care Teams Fire Safety Manager Relationship Specialty Start Date End Date [place] [address] [place] [address] PCP - General Nurse Practitioner 07/20/16 documented as of this encounter
--- OUTSIDE RECORDS SUMMARY | 2024-03-12 18:39 | XMS_ITS | Clinical Summary ---
Author Organization [facility] Address [address] [place] [address] Care Team Providers Care Cancer Center Director Name Role Phone Sheeba Castillo APRN, CNP Primary Care Provid er Source Comments You are receiving this document as you are listed as the primary care provider,follow-up provider, or the patient has been referred to you for consultation.This is in compliance with the Medicare andBar[facility] Cent[facility]aid EHR Incentive Program,which states Providers who transition their patient to another setting of careor provider of care or refers their patient to another provider of care shouldprovide summary care record for each transition of care or referral. [facility] Allergies No known active allergies Medications Medication [...] Tablet 3 03/15/2020 Active norethindrone-eth estradiol (PIRMELLA 35) 1-35 MG-MCG tabletIndications:W ell adult exam Take [...] genital symptoms 12/19/200404/25 Overview (02/14/2017): LW Onset: 13Azq85 ; Pelvic Pain Female Irritable bowel syndrome 11/29/2002 Immunizations Name Administration Dates Next Due Flu Vac Preserv Free (3+yrs) 03/04/2012, 03/10/2011,03/10/2010,2008,04/17/2008,04/08/2008,04/03/2007,1 H1n1 Laiv Medimmune 2-49 Yr (Intranasal) 04/13/2009 H1n1 Miv Sanofi 3+ Yr (Injected) 06/09/2013 HepB Adult (Engerix-B, 20+ y rs, 3 dose series) 02/08/2006,01/02/2002 HepB, Unspecified Formulation 08/09/2001 Influenza IIV4 (Quadrivalent ) 0.5mL (46150) 03/31/2019,03/22/2018,03/21/2018,2016,03/23/2016,03/24/2015,03/23/2014 PCV13 (Prevnar) 05/09/2021(Deferred: Patient Ref used) PCV20 ([id number]) 03/10/2022(Deferred: Patient Refused - Patient will complete [...] Sex Assigned at Female 05/09/2021 7:19 PM BUSINESS DEVELOPMENT SPECIALIST Gender Identity Female 05/09/2021 7:19 PM BUSINESS DEVELOPMENT SPECIALIST Sexual Orientation Straight 05/09/2021 7: 19 PM BUSINESS DEVELOPMENT SPECIALIST Last Filed Vital Signs Vital Sign Reading Time Taken Comments Blood Pressure 140/92 05/12/2022 2:52 PM BUSINESS DEVELOPMENT SPECIALIST Pulse 88 05/12/2022 2:52 PM BUSINESS DEVELOPMENT SPECIALIST Temperature 36.8 ??C (98.2 ??F) 05/12/2022 2:52 PM CS T Respiratory Rate 16 08/23/2020 11:41 AM BUSINESS DEVELOPMENT SPECIALIST Oxygen Saturation 98% 05/12/2022 2:52 PM BUSINESS DEVELOPMENT SPECIALIST Inhaled Oxygen Concentration - - Weight 96.2 kg (212 lb) 01/13/2022 8:26 AM CDT Height 167.6 cm (5' 6) 08/23/2020 10:00 AM BUSINESS DEVELOPMENT SPECIALIST Body Mass Index 34.22 08/23/2020 10:00 AM BUSINESS DEVELOPMENT SPECIALIST Plan of Treatment Health Maintenance Due Date Last Done Comments Pneumococcal (1 - PCV) 1983 Cervical Cancer Screening 12/17/20202017, 09/30/2014, 08/11/2011, Additional history exists Adult Preventive Visit 03/15/2021 , 12/19/2018, 12/17/2017, Additional history exists Mammogram 05/25/2022 05/25/2021 (Comp leted), 01/15/2018 COVID-19 Vaccine ( season) 2024 03/20/2023, 04/21/2022, 03/23/2021, Additional history exists Influenza [...] COLON, SCREENING/DIAGNOSTI C Routine 08/23/2020 10:45 AM BUSINESS DEVELOPMENT SPECIALIST Left sided colitis with rectal bleeding (HRC) [...] * Endoscopy, colon, diagnostic (08/23/2020 10:45 AM BUSINESS DEVELOPMENT SPECIALIST) Anatomical Region Laterality Modality Other 08/23/2020 10:4 5 AM BUSINESS DEVELOPMENT SPECIALIST Narrative 08/23/2020 10:45 AM BUSINESS DEVELOPMENT SPECIALIST Patient Name: Idania Duarte Procedure Date: 08/23/2020 10:45 AM Date of : 1975 Admit Type: Outpatient Age: 45 Gender: Female Note Status: Finalized Attending MD: Мария Rasmussen MD Procedure: ? Colonoscopy Indications: ? Disease activity assessment of ? left-sided chronic ulcerative ? colitis, Assess therapeutic response ? to therapy of left-sided chronic ? ulcerative colitis Providers: ? Мария Rasmussen MD, Marni Smith Referring : ?[facility]usebio Haines [facility]: ? Midazolam 6 mg IV, Fentanyl 125 [...] oxygen saturations were monitored ? continuously. The -[id number] was ? introduced through the anus and [...] Procedure Code(s): ?? --- Professional --- ? 17070, Colonoscopy, flexible; with ? removal of tumor(s), polyp(s), or ? other lesion(s) by snare technique ? 39930, 59, Colonoscopy, flexible; ? with biopsy, single or multiple ? 50523, Moderate sedation; each ? additional 15 minutes [...] (additional time may ? be reported with 74046, as ? appropriate) Diagnosis Code(s): ?? --- Professional --- ? K63.5, Polyp of colon ? K51.40, Inflammatory polyps of colon ? without complications ? K51.50, Left sided colitis without ? complications CPT copyright 2019 [employer]. All rights reserved. The codes documented in this report are preliminary and upon medical coder review may be revised to meet [...] and oxygen saturations were monitored continuously. The CF-[id number] was introduced through the anus and advanced [...] GI clinic. Procedure Code(s): --- Professional --- 44593, Colonoscopy, flexible; with removal of tumor(s), polyp(s), or other lesion(s) by snare technique 44912, 59, Colonoscopy, flexible; with biopsy, single or multiple 96741, Moderate sedation; each additional 15 minutes intraservice time G0500, Moderate sedation services provided by the same physician or other qualified health physician primary care sports medicine performing a gastrointestinal endoscopic service that sedation supports, requiring the presence of an independent trained observer to assist in the monitoring of the patient's level of consciousness and physiological status; initial 15 minutes of intra-service time; patient age 5 years or older (additional time may be reported with 56866, as appropriate) Diagnosis Code(s): --- Professional --- K63.5, Polyp of colon K51.40, Inflammatory polyps of colon without complications K51.50, Left sided colitis without complications CPT copyright 2019 [employer]. All rights reserved. The codes documented in this report are preliminary and upon medical coder review may be revised to meet current compliance requirements. Мария Rasmussen MD 08/23/2020 11:18:43 AM This document has been electronically signed. Number of Addenda: 0 Note Initiated On: 08/23/2020 10:45 AM Endoscopy Report Eusebio Haines MD PN GI PROCEDURE KIMBERLY MANUEL * Lipid Panel and Direct LDL(If Needed) (04/08/2020 3:56 PM CDT) Cholesterol 175 0 - 199 mg/dL 04/08/2020 4:39 PM [facility] Triglyceride 108 <=149 mg/dL 04/08/2020 4:39 PM [facility] HDL Cholesterol 59 >=40 mg/dL 0 4:39 PM [facility] LDL, Calculated 94 <130 mg/dL 0 4:39 PM [facility] Non HDL Chol, Calculated 116 mg/dL 04/08/2020 4:39 PM [facility] Cholesterol/HDL Ratio 3.0 04/08/2020 4:39 PM [facility] Hours Fasting 4 04/08/2020 4:39 PM [facility] Blood Venipuncture / Unknown 04/08/2020 3:56 PM CDT 04/08/2020 3:56 PM CDT Idania Andrade MD LAB_1 [facility] [address] [place] [address], [facility] [phone] * MM Mammogram Screening Bilat W CAD [...] CDT FINAL GYNECOLOGICAL CYTOLOGY REPORT Pathology #: [id number] ?Date Obtained: 12/17/2017 ? Date Received: 12/18/2017 [...] and false-negative reports may occur. Performed at [facility], [address] [place] [address] Idania Andrade MD LAB_1 Performing Organization Address [facility] de Phone Number PN SOFT [address] [place] [id number] * HIV ANTIBODY (03/24/2015 11:39 AM CDT) Pathologist [facility] HIV 1/HIV 2 Non-React Non-Reacti ve HP CONVERSION 03/24/2015 11:3 9 AM CDT 03/24/2015 2:53 PM CDT Narrative HP CONVERSION - 03/25/2015 12:01 AM CDT Performed at [facility], [address] [place] [address] Kinga Pickett APRN, CNP LAB_1 Performing Organization Address [facility] de Phone Number HP CONVERSION * Hepatitis C Antibody, with Reflex (03/24/2015 11:39 AM CDT) Pathologist [facility] Hepatitis C Antibody Non-React Non-Reacti ve HP CONVERSION 03/24/2015 11:3 9 AM CDT 03/24/2015 2:53 PM CDT Narrative HP CONVERSION - 03/24/2015 9:00 PM CDT Performed at [facility], [address] [place] [address] Kinga Pickett APRN, CNP LAB_1 Performing Organization [address] [facility] de Phone Number HP CONVERSION from [...] 1:10 PM 07/12/2016 9:07 PM Care Teams Cancer Center Director Relationship Specialty Start Date End Date Sheeba Castillo, HOT METAL MIXER OPERATOR HELPER, TEAM FOREMAN [address] [place] [address] PCP - General Nurse Practitioner 07/20/16
--- OUTSIDE RECORDS SUMMARY | 2024-03-12 18:39 | XMS_ITS ---
Author Organization [employer] Address [address] [place] [address] Care Team Providers Care Soda Dry House Operator Name Role Phone Sheeba Castillo APRN, [...] treatments are documented for this patient in [facility]. Treatments may have been administered in another system. Resolved Problems Problem Noted Date Diagnosed Date Resolved Date JANNET (generalized anxiety disorder) 01/18/2015 11/18/2015 Situational stress 01/18/2015 6 Chronic headaches 08/11/2011 12/17/2017 Concussion 08/11/2011 12/17/2017 Overview (01/27/2016): February 2008, thrown from horse. History of tobacco use 08/11/201112/17 Hx of tonsillectomy 08/11/2011 12/15/19 17 Female genital symptoms 12/19/200404/25 Overview (02/14/2017): LW Onset: 02Trq06 ; Pelvic Pain Female Irritable bowel syndrome 11/29/2002
--- OUTSIDE RECORDS SUMMARY | 2024-03-12 18:39 | XMS_ITS | Clinical Summary ---
Author Organization [facility] Address [place], [place] [address] Care Team Providers Care Pediatric Speech Language Pathologist Name Role Phone Noemi Abernathy MD Primary [...] Name Priority Date/Time Associated Diagnosis Comments HPV HIGH RISK Routine 02/11/2021 12:00 PM CDT from Last 3 Months or Most Recently Relevant to Health Maintenance Results * HPV HIGH RISK (02/11/2021 12:00 PM CDT) TYPE 16 Negative Negative 02/15/2021 5:05 AM CDT [facility] TYPE 18 Negative Negative 02/15/2021 5:05 AM CDT [facility] OTHER HIGH RISK TYPES Negative Negative 02/15/2021 5:05 AM CDT [facility] Other (Cervical/Vagina l) 02/11/2021 12:00 PM CDT 02/14/2021 7:24 AM CDT Narrative [facility] - 02/15/2021 5:05 AM CDT HPV types 16, 18, 31, 33, 35, 39, 45, 51, 52, 56, 58, 59, 66 and 68 DNA were undetectable or below the pre-set threshold. Methodology: Lul Robyn 4800 HPV Test Noemi Abernathy MD 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 [facility] [address] [place] [address], from Last 3 Months or Most Recently Relevant to Health Maintenance Care Teams Pediatric Speech Language Pathologist Relationship Specialty Start Date End Date Noemi Abernathy MD [address] [place] [address] PCP - General Family Practice 04/15/21
--- OUTSIDE RECORDS SUMMARY | 2024-03-12 18:39 | XMS_ITS | Encounter Summary ---
Author Organization [facility] Address [address] [place] [address] Care Team Providers Care Oracle Engineer Name Role Phone Sheeba Castillo APRN, CNP Primary Care Provid er Encounter Details Date Type Department Care Team (Late st Contact Info) Description 07/22/2016 Correspondence [facility] [address] [place], [place] [phone] Fernanda Lancaster PA-C [address] [place] [address] RETURN TO WORK AUTH Social History Tobacco Use Types Packs/Day Years Used Date Smoking Tobacco: Former Cigarettes 0.3 15 1 06/25/1999 - 04/25/2015 Smokeless Tobacco: Never Alcohol Use Standard Drinks/Week Comments Yes 0 (1 standard drink = 0.6 oz pur e alcohol) rarely Sex and Gender Information Value Date Recorded Sex Assigned at Female 05/09/2021 7:19 PM CIGAR PACKER AND PICKER Gender Identity Female 05/09/2021 7:19 PM CIGAR PACKER AND PICKER Sexual Orientation Straight 05/09/2021 7: 19 PM CIGAR PACKER AND PICKER documented as of this encounter Plan of Treatment Not on file documented as of this encounter Visit Diagnoses Not on filedocumented in this encounter Care Teams Oracle Engineer Relationship Specialty Start Date End Date [place] CNP [address] [place] [address] PCP - General Nurse Practitioner 07/20/16 documented as of this encounter
--- OUTSIDE RECORDS SUMMARY | 2024-03-12 18:40 | XMS_ITS | Encounter Summary ---
Author Organization [facility] Address [address] [place] [address] Care Team Providers Care Pizza Baker Name Role Phone Sheeba Castillo APRN, CNP Primary Care Provid er Encounter Details Date Type Department Care Team (Late st Contact Info) Description 07/22/2016 Correspondence [facility] [address] [place], [place] [phone] Fernanda Lancaster PA-C [address] [place] [address] RETURN TO WORK AUTH Social History Tobacco Use Types Packs/Day Years Used Date Smoking Tobacco: Former Cigarettes 0.3 15 1 06/25/1999 - 04/25/2015 Smokeless Tobacco: Never Alcohol Use Standard Drinks/Week Comments Yes 0 (1 standard drink = 0.6 oz pur e alcohol) rarely Sex and Gender Information Value Date Recorded Sex Assigned at Female 05/09/2021 7:19 PM BRUSH OPERATOR Gender Identity Female 05/09/2021 7:19 PM BRUSH OPERATOR Sexual Orientation Straight 05/09/2021 7: 19 PM BRUSH OPERATOR documented as of this encounter Plan of Treatment Not on file documented as of this encounter Visit Diagnoses Not on filedocumented in this encounter Care Teams Pizza Baker Relationship Specialty Start Date End Date [place] C[place] [address] [place] [address] PCP - General Nurse Practitioner 07/20/16 documented as of this encounter
--- OUTSIDE RECORDS SUMMARY | 2024-03-12 18:40 | XMS_ITS | Encounter Summary ---
Author Organization [facility] Address [address] [place] [address] Care Team Providers Care Toe Trimmer Name Role Phone Sheeba Castillo APRN, CNP Primary Care Provid er Encounter Details Date Type Department Care Team (Late st Contact Info) Description 07/21/2016 Correspondence [facility] [address] [place], [place] [phone] Fernanda Lancaster PA-C [address] [place] [address] DISABILITY CLAIM FAMILY MEDICAL LEAVE Social History Tobacco Use Types Packs/Day Years Used Date Smoking Tobacco: Former Cigarettes 0.3 15 1 06/25/1999 - 04/25/2015 Smokeless Tobacco: Never Alcohol Use Standard Drinks/Week Comments Yes 0 (1 standard drink = 0.6 oz pur e alcohol) rarely Sex and Gender Information Value Date Recorded Sex Assigned at Female 05/09/2021 7:19 PM EQUIPMENT OILER Gender Identity Female 05/09/2021 7:19 PM EQUIPMENT OILER Sexual Orientation Straight 05/09/2021 7: 19 PM EQUIPMENT OILER documented as of this encounter Plan of Treatment Not on file documented as of this encounter Visit Diagnoses Not on filedocumented in this encounter Care Teams Toe Trimmer Relationship Specialty Start Date End Date [place] [address] [place] [address] PCP - General Nurse Practitioner 07/20/16 documented as of this encounter
--- NOTE | 2024-03-12 19:00 | CRLHL7_ITS ---
For Patients: As a result of the Century Cures Act, medical imaging exams and procedure reports are released immediately into your electronic medical record. You may view this report before your referring provider. If you have questions, please contact your health care provider. INDICATION: Low back pain. TECHNIQUE: Sagittal and axial T1 sagittal and axial T2 and sagittal STIR images. Findings : Exaggerated lumbar lordosis. Mild grade 1 anterolisthesis at the L4-5 level. No acute compression fractures. Distal spinal cord and conus medullaris appear normal the conus terminates normally at L1-2. No disc herniation or stenosis at T10-11, T11-12 and T12-L1, L1-2 or L2-3 level. At L3-4 normal disc height and disc hydration without disc herniation. Mild facet hypertrophy no stenosis of the spinal canal or neural foramen. At L4-5 grade 1 degenerative anterolisthesis mild broad posterior annular bulge with small left foraminal disc protrusion noted adjacent to the exiting left L4 nerve root. Moderate bilateral facet enlargement with facet joint effusions and some thickening of ligamentum flavum combines to cause mild to moderate central canal stenosis. At L5-S1 degenerative disc desiccation minimal posterior annular bulge. Mild bilateral facet arthropathy. No stenosis of the spinal canal or neural foramen. The upper sacroiliac joints are unremarkable. IMPRESSION: 1. At L4-5, mild to moderate central spinal canal stenosis. Grade 1 anterolisthesis, posterior element hypertrophy and broad-based posterior disc bulge that extends into the inferior left nerve root canal adjacent to the left L4 nerve root. 2. At L5-S1, minor disc degeneration and mild facet enlargement without stenosis. 3. Exaggerated lumbar lordosis. Dictated by Ivan Hicks MD @ 03/14/2024 8:41:36 AM (Electronically Signed)
== END 2024-03-12 18:38 | disposition home or self-care (01) ==
LOC: MRI 18:37
PROVIDERS: PCP Family Medicine; Visit Provider Family Medicine
DX: M54.50 Low back pain, unspecified (principal); M48.061 Spinal stenosis, lumbar region without neurogenic claudication; M51.37 Other intervertebral disc degeneration, lumbosacral region; M40.46 Postural lordosis, lumbar region; M54.16 Radiculopathy, lumbar region
CPT/HCPCS: 72148

== ENCOUNTER 2024-04-01 15:55 | Outpatient (CLI) | payer OTHER, SELFPAY ==
--- OUTSIDE RECORDS SUMMARY | 2024-04-01 15:58 | XMS_ITS | Encounter Summary ---
Author Organization [employer] Address [address] [place] [address] Care Team Providers Care Orthopaedic Physician Assistant Name Role Phone Sheeba Castillo APRN, CNP Primary Care Provid er Encounter Details Date Type Department Care Team (Late st Contact Info) Description 07/22/2016 Correspondence [facility] [address] [place], [place] [phone] Fernanda Lancaster PA-C [address] [place] [address] RETURN TO WORK AUTH Social History Tobacco Use Types Packs/Day Years Used Date Smoking Tobacco: Former Cigarettes 0.3 15 1 06/25/1999 - 04/25/2015 Smokeless Tobacco: Never Alcohol Use Standard Drinks/Week Comments Yes 0 (1 standard drink = 0.6 oz pur e alcohol) rarely Sex and Gender Information Value Date Recorded Sex Assigned at Female 05/09/2021 7:19 PM MANAGER MBA Gender Identity Female 05/09/2021 7:19 PM MANAGER MBA Sexual Orientation Straight 05/09/2021 7: 19 PM MANAGER MBA documented as of this encounter Plan of Treatment Not on file documented as of this encounter Visit Diagnoses Not on filedocumented in this encounter Care Teams Orthopaedic Physician Assistant Relationship Specialty Start Date End Date [place] CNP [address] [place] [address] PCP - General Nurse Practitioner 07/20/16 documented as of this encounter
--- OUTSIDE RECORDS SUMMARY | 2024-04-01 15:58 | XMS_ITS | Encounter Summary ---
Author Organization [employer] Address [address] [place] [address] Care Team Providers Care Senior Quality Manager Name Role Phone Sheeba Castillo APRN, CNP Primary Care Provid er Encounter Details Date Type Department Care Team (Late st Contact Info) Description 07/21/2016 Correspondence [facility] [address] [place], [place] [phone] Fernanda Lancaster PA-C [address] [place] [address] DISABILITY CLAIM FAMILY MEDICAL LEAVE Social History Tobacco Use Types Packs/Day Years Used Date Smoking Tobacco: Former Cigarettes 0.3 15 1 06/25/1999 - 04/25/2015 Smokeless Tobacco: Never Alcohol Use Standard Drinks/Week Comments Yes 0 (1 standard drink = 0.6 oz pur e alcohol) rarely Sex and Gender Information Value Date Recorded Sex Assigned at Female 05/09/2021 7:19 PM BUTTON BREAKER OPERATOR Gender Identity Female 05/09/2021 7:19 PM BUTTON BREAKER OPERATOR Sexual Orientation Straight 05/09/2021 7: 19 PM BUTTON BREAKER OPERATOR documented as of this encounter Plan of Treatment Not on file documented as of this encounter Visit Diagnoses Not on filedocumented in this encounter Care Teams Senior Quality Manager Relationship Specialty Start Date End Date [place] [address] [place] [address] PCP - General Nurse Practitioner 07/20/16 documented as of this encounter
--- OUTSIDE RECORDS SUMMARY | 2024-04-01 15:58 | XMS_ITS | Encounter Summary ---
Author Organization [facility] Address [address] [place] [address] Care Team Providers Care Miner Placer Name Role Phone Sheeba Castillo APRN, CNP Primary Care Provid er Encounter Details Date Type Department Care Team (Late st Contact Info) Description 04/01/2024 Telephone [facility] [address] [place] [address] Ter[place] C[place] [address] [place] [address] Social History Tobacco Use Types Packs/Day Years [...] Sex Assigned at Female 05/09/2021 7:19 PM K 8 SCHOOL PRINCIPAL Gender Identity Female 05/09/2021 7:19 PM K 8 SCHOOL PRINCIPAL Sexual Orientation Straight 05/09/2021 7: 19 PM K 8 SCHOOL PRINCIPAL documented as of this encounter Nursing Notes * Sindy Anderson, TEETEE - 04/01/2024 2:42 PM CDT [facility] filled out for labs to be completed per provider requested and signed by Dr. Lopez due to provider is not in person today. Patient requested lab orders to be faxed to [facility] lab. [facility] is faxed to [phone]. Received confirmation of faxed received on 04/01/24 at 2:44 pm. Patient is called and notified of fax has been sent for labs to patient preferred lab. Patient acknowledged understanding and had no further questions at this time. documented in this encounter Plan of Treatment Not on file documented as of this encounter Visit Diagnoses Not on filedocumented in this encounter Care Teams Miner Placer Relationship Specialty Start Date End Date Sheeba Castillo APRN, INSURANCE COLLECTOR [address] [place] [address] PCP - General Nurse Practitioner 07/20/16 documented as of this encounter
--- OUTSIDE RECORDS SUMMARY | 2024-04-01 15:58 | XMS_ITS ---
Author Organization [employer] Address [address] [place] [address] Care Team Providers Care Supervisor Winding Department Name Role Phone Sheeba Castillo APRN, SIERRA [...] genital symptoms 12/19/200404/25 Overview (02/14/2017): LW Onset: [id number] ; Pelvic Pain Female Irritable bowel syndrome 11/29/2002
--- OUTSIDE RECORDS SUMMARY | 2024-04-01 15:58 | XMS_ITS | Clinical Summary ---
Author Organization [facility] Address [place], [place] [address] Care Team Providers Care Video Editing Internship Name Role Phone Noemi Abernathy MD Primary [...] 16 Negative Negative 02/15/2021 5:05 AM CDT [facility] TYPE 18 Negative Negative 02/15/2021 5:05 AM CDT [facility] OTHER HIGH RISK TYPES Negative Negative 02/15/2021 5:05 AM CDT [facility] Other (Cervical/Vagina l) 02/11/2021 12:00 PM CDT 02/14/2021 7:24 AM CDT Narrative [facility] - 02/15/2021 5:05 AM CDT HPV types 16, 18, 31, 33, 35, 39, 45, 51, 52, 56, 58, 59, 66 and 68 DNA were undetectable or below the pre-set threshold. Methodology: Lul Robyn 4800 HPV Test Noemi Abernathy MD 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 [facility] [address] [place] [address], from Last 3 Months or Most Recently Relevant to Health Maintenance Care Teams Video Editing Internship Relationship Specialty Start Date End Date Noemi Abernathy MD [address] [place] [address] PCP - General Family Practice 04/15/21
--- OUTSIDE RECORDS SUMMARY | 2024-04-01 15:58 | XMS_ITS | Encounter Summary ---
Author Organization [employer] Address [address] [place] [address] Care Team Providers Care Communications Department Chairperson Name Role Phone Sheeba Castillo APRN, CNP Primary Care Provid er Reason for Visit * Reason Comments QUESTIONS, GENERAL Entered automaticall y based on patient [facility] Encounter Details Date Type Department Care Team (Late st Contact Info) Description 03/30/2024 9:00 PM CDT E-Visit Gastroenterology at [facility] [address] [place] [address]. [place], [place] [address] Teri Ruth APRN, SIERRA [address] [place] [id number] Dx: Left sided colitis with rectal bleeding (HRC) (Primary Dx) Social History Tobacco Use Types Packs/Day [...] Sex Assigned at Female 05/09/2021 7:19 PM FLOOR COVERING INSTALLER Gender Identity Female 05/09/2021 7:19 PM FLOOR COVERING INSTALLER Sexual Orientation Straight 05/09/2021 7: 19 PM FLOOR COVERING INSTALLER documented as of this encounter Plan of Treatment Scheduled Orders Name Type Priority Associated Diagnoses Orde r Schedule C-Reactive Protein Lab Routine Left sided colitis with rectal bleeding (HRC) Expected: 03/31/2024 (Approximate), Expires: 06/29/2024 Complete Blood Count -W/Diff Lab Routine Left sided colitis with rectal bleeding (HRC) Expected: 03/31/2024 (Approximate), Expires: 06/29/2024 Enteric Stool Pathogens Panel Microbiology Routine Left sided colitis with rectal bleeding (HRC) Expected: 03/31/2024 (Approximate), Expires: 06/29/2024 Enteric Parasite Molecular Detection (Giardia, Cryptosporidium, E.histolytica) Microbiology Routine Left sided colitis with rectal bleeding (HRC) Expected: 03/31/2024 (Approximate), Expires: 06/29/2024 Fecal Calprotectin Lab Routine Left sided colitis with rectal bleeding (HRC) Expected: 03/31/2024 (Approximate), Expires: 06/29/2024 C.Difficile Toxin,Molecular Detection, Microbiology Routine Left sided colitis with rectal bleeding (HRC) Expected: 03/31/2024 (Approximate), Expires: 06/29/2024 documented as of this encounter Visit Diagnoses Diagnosis Left sided colitis with rectal bleeding (HRC)- Primary Left sided ulcerative (chronic) colitis documented in this encounter Care Teams Communications Department Chairperson Relationship Specialty Start Date End Date Sheeba Castillo, OUTREACH ANALYST, FUEL CELL DESIGNER [address] [place] [address] PCP - General Nurse Practitioner 07/20/16 documented as of this encounter
--- OUTSIDE RECORDS SUMMARY | 2024-04-01 15:58 | XMS_ITS | Encounter Summary ---
Author Organization [employer] Address [address] [place] [address] Care Team Providers Care Shock Absorption Floor Layer Name Role Phone Sheeba Castillo APRN, CNP Primary Care Provid er Encounter Details Date Type Department Care Team (Late st Contact Info) Description 07/22/2016 Correspondence [facility] [address] [place], [place] [phone] Fernanda Lancaster PA-C [address] [place] [address] RETURN TO WORK AUTH Social History Tobacco Use Types Packs/Day Years Used Date Smoking Tobacco: Former Cigarettes 0.3 15 1 06/25/1999 - 04/25/2015 Smokeless Tobacco: Never Alcohol Use Standard Drinks/Week Comments Yes 0 (1 standard drink = 0.6 oz pur e alcohol) rarely Sex and Gender Information Value Date Recorded Sex Assigned at Female 05/09/2021 7:19 PM JUNIOR DATABASE ADMINISTRATOR Gender Identity Female 05/09/2021 7:19 PM JUNIOR DATABASE ADMINISTRATOR Sexual Orientation Straight 05/09/2021 7: 19 PM JUNIOR DATABASE ADMINISTRATOR documented as of this encounter Plan of Treatment Not on file documented as of this encounter Visit Diagnoses Not on filedocumented in this encounter Care Teams Shock Absorption Floor Layer Relationship Specialty Start Date End Date [place] [address] [place] [address] PCP - General Nurse Practitioner 07/20/16 documented as of this encounter
--- OUTSIDE RECORDS SUMMARY | 2024-04-01 15:58 | XMS_ITS | Encounter Summary ---
Author Organization [employer] Address [address] [place] [address] Care Team Providers Care Skip Miner Blasting Name Role Phone Sheeba Castillo APRN, CNP Primary Care Provid er Encounter Details Date Type Department Care Team (Late st Contact Info) Description 07/22/2016 Correspondence [facility] [address] [place], [place] [id number] Fernanda Lancaster PA-C [address] [place] [address] RETURN TO WORK AUTH Social History Tobacco Use Types Packs/Day Years Used Date Smoking Tobacco: Former Cigarettes 0.3 15 1 06/25/1999 - 04/25/2015 Smokeless Tobacco: Never Alcohol Use Standard Drinks/Week Comments Yes 0 (1 standard drink = 0.6 oz pur e alcohol) rarely Sex and Gender Information Value Date Recorded Sex Assigned at Female 05/09/2021 7:19 PM CONFERENCE CONCIERGE Gender Identity Female 05/09/2021 7:19 PM CONFERENCE CONCIERGE Sexual Orientation Straight 05/09/2021 7: 19 PM CONFERENCE CONCIERGE documented as of this encounter Plan of Treatment Not on file documented as of this encounter Visit Diagnoses Not on filedocumented in this encounter Care Teams Skip Miner Blasting Relationship Specialty Start Date End Date [place] C[place] [address] [place] [address] PCP - General Nurse Practitioner 07/20/16 documented as of this encounter
--- OUTSIDE RECORDS SUMMARY | 2024-04-01 15:58 | XMS_ITS | Clinical Summary ---
Author Organization [facility] Address [address] [place] [address] Care Team Providers Care Precision Agriculture Technician Name Role Phone Sheeba Castillo APRN, CNP Primary Care Provid er Source Comments You are receiving this document as you are listed as the primary care provider,follow-up provider, or the patient has been referred to you for consultation.This is in compliance with the Medicare and[facility] EHR Incentive Program,which states Providers who [...] genital symptoms 12/19/200404/25 Overview (02/14/2017): LW Onset: [id number] ; Pelvic Pain Female Irritable bowel syndrome 11/29/2002 Encounters Date Type Department Care Team Description 04/01/2024 Telephone [facility] [address] [place], [place] [address] Teri Ruth, RUDY, SIERRA 03/30/2024 9:00 PM CDT E-Visit Gastroenterology at [facility] at [address] [place] [address] Teri Ruth, RUDY, PREPARATOR Dx: Left sided colitis with rectal bleeding (HRC) (Primary Dx) from Last 3 Months Immunizations Name Administration Dates Next Due Flu Vac Preserv Free (3+yrs) 03/04/2012, 03/10/2011,03/10/2010,2008,04/17/2008,04/08/2008,04/03/2007,1 H1n1 Laiv Medimmune 2-49 Yr (Intranasal) 04/13/2009 H1n1 Miv Sanofi 3+ Yr (Injected) 06/09/2013 HepB Adult (Engerix-B, 20+ y rs, 3 dose series) 02/08/2006,01/02/2002 HepB, Unspecified Formulation 08/09/2001 Influenza IIV4 (Quadrivalent ) 0.5mL (66764) 03/31/2019,03/22/2018,03/21/2018,2016,03/23/2016,03/24/2015,03/23/2014 PCV13 (Prevnar) 05/09/2021(Deferred: Patient Ref used) PCV20 ([id number]) 03/10/2022(Deferred: Patient Refused - Patient will complete [...] Sex Assigned at Female 05/09/2021 7:19 PM ELECTRIC REFRIGERATOR SERVICER Gender Identity Female 05/09/2021 7:19 PM ELECTRIC REFRIGERATOR SERVICER Sexual Orientation Straight 05/09/2021 7: 19 PM ELECTRIC REFRIGERATOR SERVICER Last Filed Vital Signs Vital Sign Reading Time Taken Comments Blood Pressure 140/92 05/12/2022 2:52 PM ELECTRIC REFRIGERATOR SERVICER Pulse 88 05/12/2022 2:52 PM ELECTRIC REFRIGERATOR SERVICER Temperature 36.8 ??C (98.2 ??F) 05/12/2022 2:52 PM CS T Respiratory Rate 16 08/23/2020 11:41 AM ELECTRIC REFRIGERATOR SERVICER Oxygen Saturation 98% 05/12/2022 2:52 PM ELECTRIC REFRIGERATOR SERVICER Inhaled Oxygen Concentration - - Weight 96.2 kg (212 lb) 01/13/2022 8:26 AM CDT Height 167.6 cm (5' 6) 08/23/2020 10:00 AM ELECTRIC REFRIGERATOR SERVICER Body Mass Index 34.22 08/23/2020 10:00 AM ELECTRIC REFRIGERATOR SERVICER Plan of Treatment Health Maintenance Due Date [...] on patient's age to complete this topic RSV Aged Out No longer eligi ble based on patient's age to complete this topic MCV4 Aged Out No longer eligi ble based on patient's age to complete this topic Procedures Procedure Name Priority Date/Time Associated Diagnosis Comments ENDOSCOPY, COLON, SCREENING/DIAGNOSTI C Routine 08/23/2020 10:45 AM ELECTRIC REFRIGERATOR SERVICER Left sided colitis with rectal bleeding (HRC) [...] * Endoscopy, colon, diagnostic (08/23/2020 10:45 AM ELECTRIC REFRIGERATOR SERVICER) Anatomical Region Laterality Modality Other 08/23/2020 10:4 5 AM ELECTRIC REFRIGERATOR SERVICER Narrative 08/23/2020 10:45 AM ELECTRIC REFRIGERATOR SERVICER Patient Name: Idania Duarte Procedure Date: 08/23/2020 10:45 AM Date of : 1975 Admit Type: Outpatient Age: 45 Gender: Female Note Status: Finalized Attending MD: Мария Rasmussen MD Procedure: ? Colonoscopy Indications: ? Disease activity assessment of ? left-sided chronic ulcerative ? colitis, Assess therapeutic response ? to therapy of left-sided chronic ? ulcerative colitis Providers: ? Мария Rasmussen MD, Marni Trivedi MD: ?Eusebio Haines Medicines: [...] oxygen saturations were monitored ? continuously. The [id number] was ? introduced through the anus and [...] Procedure Code(s): ?? --- Professional --- ? 82142, Colonoscopy, flexible; with ? removal of tumor(s), polyp(s), or ? other lesion(s) by snare technique ? 06657, 59, Colonoscopy, flexible; ? with biopsy, single or multiple ? 44092, Moderate sedation; each ? additional 15 minutes [...] (additional time may ? be reported with 05375, as ? appropriate) Diagnosis Code(s): ?? --- Professional --- ? K63.5, Polyp of colon ? K51.40, Inflammatory polyps of colon ? without complications ? K51.50, Left sided colitis without ? complications CPT copyright 2019 [employer]. All rights reserved. The codes documented in this report are preliminary and upon certified coder review may be revised to meet current compliance requirements. Мария Rasmussen MD 08/23/2020 11:18:43 AM This document has been electronically signed. Number of Addenda: 0 Note Initiated On: 08/23/2020 10:45 AM ? Endoscopy Report Procedure Note ProviderAngelica MD - 08/23/2020 Patient Name: Idania Duarte Procedure [...] and oxygen saturations were monitored continuously. The [id number] was introduced through the anus and advanced [...] GI clinic. Procedure Code(s): --- Professional --- 60470, Colonoscopy, flexible; with removal of tumor(s), polyp(s), or other lesion(s) by snare technique 67206, 59, Colonoscopy, flexible; with biopsy, single or multiple 56138, Moderate sedation; each additional 15 minutes intraservice time G0500, Moderate sedation services provided by the same physician or other qualified health caregivers non medical performing a gastrointestinal endoscopic service that sedation supports, requiring the presence of an independent trained observer to assist in the monitoring of the patient's level of consciousness and physiological status; initial 15 minutes of intra-service time; patient age 5 years or older (additional time may be reported with 14315, as appropriate) Diagnosis Code(s): --- Professional --- K63.5, Polyp of colon K51.40, Inflammatory polyps of colon without complications K51.50, Left sided colitis without complications CPT copyright 2019 [employer]. All rights reserved. The codes documented in this report are preliminary and upon certified coder review may be revised to meet current compliance requirements. Мария Rasmussen MD 08/23/2020 11:18:43 AM This document has been electronically signed. Number of Addenda: 0 Note Initiated On: 08/23/2020 10:45 AM Endoscopy Report Eusebio Haines MD ET GI PROCEDURE ORDE MAR * Lipid Panel and Direct LDL(If Needed) (04/08/2020 3:56 PM CDT) Cholesterol 175 0 - 199 mg/dL 04/08/2020 4:39 PM CDT [facility] Triglyceride 108 <=149 mg/dL 04/08/2020 4:39 PM CDT [facility] HDL Cholesterol 59 >=40 mg/dL 0 4:39 PM CDT [facility] LDL, Calculated 94 <130 mg/dL 0 4:39 PM CDT [facility] Non HDL Chol, Calculated 116 mg/dL 04/08/2020 4:39 PM CDT [facility] Cholesterol/HDL Ratio 3.0 04/08/2020 4:39 PM CDT [facility] Hours Fasting 4 04/08/2020 4:39 PM CDT [facility] Blood Venipuncture / Unknown 04/08/2020 3:56 PM CDT 04/08/2020 3:56 PM CDT Idania Andrade MD LAB_1 [facility] [address] [place] [address], [facility] [phone] * MM Mammogram Screening Bilat W CAD [...] CDT FINAL GYNECOLOGICAL CYTOLOGY REPORT Pathology #: [id number] ?Date Obtained: 12/17/2017 ? Date Received: 12/18/2017 [...] and false-negative reports may occur[place] [address] Idania Andrade MD LAB_1 Performing Organization Address [facility] de Phone Number [place] [phone] * HIV ANTIBODY (03/24/2015 11:39 AM CDT) [facility] HIV 1/HIV 2 Non-React Non-Reacti ve HP CONVERSION 03/24/2015 11:3 9 AM CDT 03/24/2015 2:53 PM CDT Narrative HP CONVERSION - 03/25/2015 12:01 [place] [address] Kinga Pickett APRN, CNP LAB_1 Performing Organization Address [facility] de Phone Number HP CONVERSION * Hepatitis C Antibody, with Reflex (03/24/2015 11:39 AM CDT) [facility] Hepatitis C Antibody Non-React Non-Reacti ve HP CONVERSION 03/24/2015 11:3 9 AM CDT 03/24/2015 2:53 PM CDT Narrative HP CONVERSION - 03/24/2015 9:00 PM CDT Performed at [address] [address] Kinga Pickett APRN, SIERRA LAB_1 HP CONVERSION from Last 3 Months or [...] 1:10 PM 07/12/2016 9:07 PM Care Teams Precision Agriculture Technician Relationship Specialty Start Date End Date Sheeba Castillo APRN, PREPARATOR [address] [place] [address] PCP - General Nurse Practitioner 07/20/16
[2024-04-01 18:43] LABS: Basophils Absolute Auto 0.04 K/uL (0.00-0.30); Basophils Percent Auto 0.6 % (0.0-3.0); Eosinophils Absolute Auto 0.31 K/uL (0.00-0.50); Eosinophils Percent Auto 4.6 % (0.0-7.0); Hematocrit 39.6 % (33.0-51.0); Hemoglobin* 13.3 gm/dL (12.0-16.0); Lymphocytes Absolute Auto 2.75 K/uL (0.90-2.90); Lymphocytes Percent Auto 40.8 % (20-44); Mean Corpuscular HGB Conc 34 gm/dL (32-36); Mean Corpuscular Hemoglobin 31 pg (26-34); Mean Corpuscular Volume 93 fL (80-100); Monocytes Percent Auto 5.3 % (0.0-11.0); Neutrophils Absolute Auto 3.28 K/uL (1.7-7.0); Neutrophils Percent Auto 48.7 % (42.0-72.0); Platelet Count* 263 K/uL (140-440); RDW Coefficient of Variation % 11.9 % (11.5-15.5); Red Blood Count 4.25 m/uL (4.00-5.20); Slide Review Reflex No; White Blood Count* 6.74 K/uL (4.50-11.00)
[2024-04-01 18:57] LABS: C Reactive Protein* < 0.5 mg/dL (0.5-1.0)
[2024-04-01 23:18] LABS: C.Difficile Negative (Negative); CDIFFEPI 027 PRESUMPTIVE NEGATIVE (Negative)
[2024-04-04 17:34] LABS: Adenovirus PCR Not Detected; Astrovirus PCR Not Detected; Campylobacter PCR Not Detected; Cryptosporidium PCR Not Detected; Cyclospora cayetanensis PCR Not Detected; Entamoeba histolytica PCR Not Detected; Enteroaggregative E coli PCR Not Detected; Enteropathogenic E coli PCR Not Detected; Enterotoxigenic E coli PCR Not Detected; Giardia lamblia PCR Not Detected; Norovirus Gi/GII PCR Not Detected; Plesiomonas shig PCR Not Detected; Rotavirus A PCR Not Detected; Salmonella PCR Not Detected; Sapovirus PCR Not Detected; Shiga toxin E coli PCR Not Detected; Shigella/Enteroinvasive E coli Not Detected; Vibrio PCR Not Detected; Vibrio cholerae PCR Not Detected; Yersinia enterocolitica PCR Not Detected
[2024-04-05 14:32] LABS: Cryptosporidium by PCR Not Detected; Cyclospora cayetanensis by PCR Not Detected; Dientamoeba fragilis by PCR Not Detected; Entamoeba histolytica by PCR Not Detected; Giardia by PCR Not Detected
== END 2024-04-01 15:56 | disposition home or self-care (01) ==
PROVIDERS: PCP Family Medicine; Visit Provider Nurse Practitioner Adult Health
DX: K51.911 Ulcerative colitis, unspecified with rectal bleeding (principal)
CPT/HCPCS: 36415; 85025; 86140; 87493; 87505

== ENCOUNTER 2024-04-07 15:30 | Outpatient (RCR) | payer OTHER, SELFPAY ==
[2023-12-07 11:50] VITALS: BP 121/77; PULSE 91; RESP 16; TEMP 36.6; O2SAT 97
[2023-12-07] MEDS: VEDOLIZUMAB 300 MG, TUBING SECONDARY 1 EACH in 0.9 % SODIUM CHLORIDE 250 ml 250 ML 510 MG IVPB (12:11)
--- NOTE | 2024-01-31 15:25 | ONC.NURNOTE ---
Patient inquired about an MRI of back. Information provided to LUPILLO Hinton. Per Radha, continue with the back and spine referral that was placed by Dr. Abernathy. Patient notified and aware of plan.
[2024-02-01 08:04] VITALS: BP 126/77; PULSE 82; RESP 17; TEMP 36.5; O2SAT 96
[2024-02-01] MEDS: VEDOLIZUMAB 300 MG, TUBING SECONDARY 1 EACH in 0.9 % SODIUM CHLORIDE 250 ml 250 ML 510 MG IVPB (08:22)
[2024-02-01] MEDS: 0.9 % SODIUM CHLORIDE 250 ml 250 ML 35 ML IV (08:22)
--- NOTE | 2024-02-27 09:46 | URNOTE ---
Shama ([id number]) has been approved 03/28/2024-06/28/2024.
[2024-03-28 11:56] VITALS: BP 126/73; PULSE 81; RESP 16; TEMP 36.2; O2SAT 98
[2024-03-28] MEDS: VEDOLIZUMAB 300 MG, TUBING SECONDARY 1 EACH in 0.9 % SODIUM CHLORIDE 250 ml 250 ML 510 MG IVPB (12:10)
[2024-03-28] MEDS: 0.9 % SODIUM CHLORIDE 250 ml 250 ML 35 ML IV (12:11)
== END 2024-04-26 23:59 | disposition home or self-care (01) ==
LOC: CCIC 15:30
PROVIDERS: PCP Family Medicine; Referring Provider Family Medicine; Visit Provider Physician Assistant
DX: C50.912 Malignant neoplasm of unspecified site of left female breast (principal); Z17.0 Estrogen receptor positive status [ER+]; Z79.810 Long term (current) use of selective estrogen receptor modulators (SERMs); M54.2 Cervicalgia; M54.16 Radiculopathy, lumbar region; N95.0 Postmenopausal bleeding; N64.4 Mastodynia
CPT/HCPCS: 96365; 96413; 99214; 99215; G0463; J3380; J7050

== ENCOUNTER 2024-04-10 17:14 | Outpatient (REF) | payer OTHER, SELFPAY ==
--- OUTSIDE RECORDS SUMMARY | 2024-04-10 17:17 | XMS_ITS | Clinical Summary ---
Author Organization [employer] [facility] [place] [address] Care Team Providers Care Service Technician Name Role Phone Noemi Abernathy MD Primary [...] TYPES Negative Negative 02/15/2021 5:05 AM CDT [facility] Other (Cervical/Vagina l) 02/11/2021 12:00 PM CDT 02/14/2021 7:24 AM CDT Narrative [facility] - 02/15/2021 5:05 AM CDT HPV types 16, 18, 31, 33, 35, 39, 45, 51, 52, 56, 58, 59, 66 and 68 DNA were undetectable or below the pre-set threshold. Methodology: Lul Robyn 4800 HPV Test Noemi Abernathy MD 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 [facility] [address] [place] [address], from Last 3 Months or Most Recently Relevant to Health Maintenance Care Teams Service Technician Relationship Specialty Start Date End Date Noemi Abernathy MD [address] [place] [address] PCP - General Family Practice 04/15/21
--- OUTSIDE RECORDS SUMMARY | 2024-04-10 17:18 | XMS_ITS | Encounter Summary ---
Author Organization [employer] Address [address] [place] [address] Care Team Providers Care Ramp Manager Name Role Phone Sheeba Castillo APRN, CNP Primary Care Provid er Reason for Visit * Reason Comments Provider Orders Encounter Details Date Type Department Care Team (Late st Contact Info) Description 04/01/2024 Telephone [facility] [address] [place] [address] Teri Ruth APRN, CNP [address] [place] [address] Provider Orders Social History Tobacco Use Types Packs/Day Years [...] Sex Assigned at Female 05/09/2021 7:19 PM WEAVER TIRE CORD Gender Identity Female 05/09/2021 7:19 PM WEAVER TIRE CORD Sexual Orientation Straight 05/09/2021 7: 19 PM WEAVER TIRE CORD documented as of this encounter Nursing Notes * Beth [place] RN - 04/10/2024 2:17 PM CDT Pt notified and verbalized understanding of below. Pt will submit sample OSMANY. * Marni Smith RN - 04/10/2024 9:09 AM CDT Fecal Calprotectin result not received. RN contacted [facility] who states that they never received an order for this, therefore, it was never run. [facility] order for fecal calprotectin filled out and signed by provider. Faxed to [phone], confirmation was received. RN contacted lab, they confirmed they did have the order. LMTCB with the patient. Patient needs to return to the lab to pick up driver the kit to provide the stool sample for the missing fecal calprotectin. * Marni Smith RN - 04/08/2024 1:03 PM CDT Remainder of lab results received. Placed in RECEIVING WORKER inbox. * Marni Smith RN - 04/08/2024 12:57 PM CDT Stool study results received via fax to [facility]. Placed in RECEIVING WORKER inbox for review. Still waiting for other labs. * Teri Ruth, GAMEPLAY ENGINEER, METALSMITH APPRENTICE - 04/01/2024 5:19 PM CDT Noted. Thank you. * Sindy Anderson LPN - 04/01/2024 2:42 PM CDT [facility] filled out for labs to be completed per provider requested and signed by Dr. Lopez due to provider is not in person today. Patient requested lab orders to be faxed to [facility] lab. [facility] is faxed to [phone]. Received confirmation of faxed received on 04/01/24 at 2:44 pm. Patient is called and notified of fax has been sent for labs to patient preferred lab. Patient acknowledged understanding and had no further questions at this time. documented in this encounter Plan of Treatment Not on file documented as of this encounter Visit Diagnoses Not on filedocumented in this encounter Care Teams Ramp Manager Relationship Specialty Start Date End Date Sheeba Castillo, GAMEPLAY ENGINEER, METALSMITH APPRENTICE [address] [place] [address] PCP - General Nurse Practitioner 07/20/16 documented as of this encounter
--- OUTSIDE RECORDS SUMMARY | 2024-04-10 17:18 | XMS_ITS | Encounter Summary ---
Author Organization [employer] Address [address] [place] [address] Care Team Providers Care Dumpcart Driver Name Role Phone Sheeba Castillo APRN, CNP Primary Care Provid er Encounter Details Date Type Department Care Team (Late st Contact Info) Description 07/21/2016 Correspondence [facility] [address] [place], [place] [id number] Fernanda Lancaster PA-C [address] [place] [address] DISABILITY CLAIM FAMILY MEDICAL LEAVE Social History Tobacco Use Types Packs/Day Years Used Date Smoking Tobacco: Former Cigarettes 0.3 15 1 06/25/1999 - 04/25/2015 Smokeless Tobacco: Never Alcohol Use Standard Drinks/Week Comments Yes 0 (1 standard drink = 0.6 oz pur e alcohol) rarely Sex and Gender Information Value Date Recorded Sex Assigned at Female 05/09/2021 7:19 PM ASSURANCE OFFICER Gender Identity Female 05/09/2021 7:19 PM ASSURANCE OFFICER Sexual Orientation Straight 05/09/2021 7: 19 PM ASSURANCE OFFICER documented as of this encounter Plan of Treatment Not on file documented as of this encounter Visit Diagnoses Not on filedocumented in this encounter Care Teams Dumpcart Driver Relationship Specialty Start Date End Date [place] C[place] [address] [place] [address] PCP - General Nurse Practitioner 07/20/16 documented as of this encounter
--- OUTSIDE RECORDS SUMMARY | 2024-04-10 17:18 | XMS_ITS | Encounter Summary ---
Author Organization [employer] Address [address] [place] [address] Care Team Providers Care Meat Grinder Name Role Phone Sheeba Castillo APRN, CNP Primary Care Provid er Encounter Details Date Type Department Care Team (Late st Contact Info) Description 07/22/2016 Correspondence [facility] [address] [place], [place] [phone] Fernanda Lancaster PA-C [address] [place] [address] RETURN TO WORK AUTH Social History Tobacco Use Types Packs/Day Years Used Date Smoking Tobacco: Former Cigarettes 0.3 15 1 06/25/1999 - 04/25/2015 Smokeless Tobacco: Never Alcohol Use Standard Drinks/Week Comments Yes 0 (1 standard drink = 0.6 oz pur e alcohol) rarely Sex and Gender Information Value Date Recorded Sex Assigned at Female 05/09/2021 7:19 PM CONSULTANT INTERNSHIP Gender Identity Female 05/09/2021 7:19 PM CONSULTANT INTERNSHIP Sexual Orientation Straight 05/09/2021 7: 19 PM CONSULTANT INTERNSHIP documented as of this encounter Plan of Treatment Not on file documented as of this encounter Visit Diagnoses Not on filedocumented in this encounter Care Teams Meat Grinder Relationship Specialty Start Date End Date [place] [address] [place] [address] PCP - General Nurse Practitioner 07/20/16 documented as of this encounter
--- OUTSIDE RECORDS SUMMARY | 2024-04-10 17:18 | XMS_ITS | Encounter Summary ---
Author Organization [employer] Address [address] [place] [address] Care Team Providers Care Formal Service Waiter Name Role Phone Sheeba Castillo APRN, CNP Primary Care Provid er Reason for Visit * Reason Comments QUESTIONS, GENERAL Entered automaticall y based on patient [facility] Encounter Details Date Type Department Care Team (Late st Contact Info) Description 03/30/2024 9:00 PM CDT E-Visit Gastroenterology at [facility] [address] [place] [address]. [place], [place] [address] Teri Ruth APRN, SIERRA [address] [place] [address] Dx: Left sided colitis with rectal bleeding [...] Sex Assigned at Female 05/09/2021 7:19 PM FIRE PROTECTION EQUIPMENT TECHNICIAN Gender Identity Female 05/09/2021 7:19 PM FIRE PROTECTION EQUIPMENT TECHNICIAN Sexual Orientation Straight 05/09/2021 7: 19 PM FIRE PROTECTION EQUIPMENT TECHNICIAN documented as of this encounter Plan [...] colitis documented in this encounter Care Teams Formal Service Waiter Relationship Specialty Start Date End Date Sheeba Castillo, BUSINESS PARTNER, EVISCERATOR [address] [place] [address] PCP - General Nurse Practitioner 07/20/16 documented as of this encounter
--- OUTSIDE RECORDS SUMMARY | 2024-04-10 17:18 | XMS_ITS ---
Author Organization [employer] Address [address] [place] [address] Care Team Providers Care Cashier And Salesperson Name Role Phone Sheeba Castillo APRN, SIERRA [...] are documented for this patient in [facility]. Treatments may have been administered in another system. Resolved Problems Problem Noted Date Diagnosed Date Resolved Date JANNET (generalized anxiety disorder) 01/18/2015 11/18/2015 Situational stress 01/18/2015 6 Chronic headaches 08/11/2011 12/17/2017 Concussion 08/11/2011 12/17/2017 Overview (01/27/2016): February 2008, thrown from horse. History of tobacco use 08/11/201112/17 Hx of tonsillectomy 08/11/2011 12/15/19 17 Female genital symptoms 12/19/200404/25 Overview (02/14/2017): LW Onset: [id number] ; Pelvic Pain Female Irritable bowel syndrome 11/29/2002
--- OUTSIDE RECORDS SUMMARY | 2024-04-10 17:18 | XMS_ITS | Encounter Summary ---
Author Organization [employer] Address [address] [place] [address] Care Team Providers Care Generator Man Name Role Phone Sheeba Castillo APRN, CNP Primary Care Provid er Encounter Details Date Type Department Care Team (Late st Contact Info) Description 07/22/2016 Correspondence [facility] [address] [place], [place] [phone] Fernanda Lancaster PA-C [address] [place] [address] RETURN TO WORK AUTH Social History Tobacco Use Types Packs/Day Years Used Date Smoking Tobacco: Former Cigarettes 0.3 15 1 06/25/1999 - 04/25/2015 Smokeless Tobacco: Never Alcohol Use Standard Drinks/Week Comments Yes 0 (1 standard drink = 0.6 oz pur e alcohol) rarely Sex and Gender Information Value Date Recorded Sex Assigned at Female 05/09/2021 7:19 PM DETECTIVE INVESTIGATOR Gender Identity Female 05/09/2021 7:19 PM DETECTIVE INVESTIGATOR Sexual Orientation Straight 05/09/2021 7: 19 PM DETECTIVE INVESTIGATOR documented as of this encounter Plan of Treatment Not on file documented as of this encounter Visit Diagnoses Not on filedocumented in this encounter Care Teams Generator Man Relationship Specialty Start Date End Date [place] [address] [place] [address] PCP - General Nurse Practitioner 07/20/16 documented as of this encounter
--- OUTSIDE RECORDS SUMMARY | 2024-04-10 17:18 | XMS_ITS | Encounter Summary ---
Author Organization [facility] [employer] Address [address] [place] [address] Care Team Providers Care Sql Database Administrator Name Role Phone Sheeba Castillo APRN, CNP Primary Care Provid er Encounter Details Date Type Department Care Team (Late st Contact Info) Description 07/22/2016 Correspondence [facility] [address] [place], [place] [phone] Fernanda Lancaster PA-C [address] [place] [address] RETURN TO WORK AUTH Social History Tobacco Use Types Packs/Day Years Used Date Smoking Tobacco: Former Cigarettes 0.3 15 1 06/25/1999 - 04/25/2015 Smokeless Tobacco: Never Alcohol Use Standard Drinks/Week Comments Yes 0 (1 standard drink = 0.6 oz pur e alcohol) rarely Sex and Gender Information Value Date Recorded Sex Assigned at Female 05/09/2021 7:19 PM SUPERVISOR PATCHING Gender Identity Female 05/09/2021 7:19 PM SUPERVISOR PATCHING Sexual Orientation Straight 05/09/2021 7: 19 PM SUPERVISOR PATCHING documented as of this encounter Plan of Treatment Not on file documented as of this encounter Visit Diagnoses Not on filedocumented in this encounter Care Teams Sql Database Administrator Relationship Specialty Start Date End Date Sheeba Castillo APRN, CNP [address] [place] [address] PCP - General Nurse Practitioner 07/20/16 documented as of this encounter
--- OUTSIDE RECORDS SUMMARY | 2024-04-10 17:18 | XMS_ITS | Clinical Summary ---
Author Organization [facility] Address [address] [place] [address] Care Team Providers Care Mailing Machine Operator Name Role Phone Sheeba Castillo APRN, CNP Primary Care Provid er Source Comments You are receiving this document as you are listed as the primary care provider,follow-up provider, or the patient has been referred to you for consultation.This is in compliance with the Medicare and[facility] EHR Incentive Program,which states Providers who [...] genital symptoms 12/19/200404/25 Overview (02/14/2017): LW Onset: [id number] ; Pelvic Pain Female Irritable bowel syndrome 11/29/2002 Encounters Date Type Department Care Team Description 04/01/2024 Telephone [facility] [address] [place], [place] [id number] Teri Ruth APRN, SIERRA Provider Orders 03/30/2024 9:00 PM CDT E-Visit Gastroenterology at [facility] at [address] [place] [address] Teri Ruth, RUDY, TERRAZZO LAYER HELPER Dx: Left sided colitis with rectal bleeding (HRC) (Primary Dx) from Last 3 Months Immunizations Name Administration Dates Next Due Flu Vac Preserv Free (3+yrs) 03/04/2012, 03/10/2011,03/10/2010,2008,04/17/2008,04/08/2008,04/03/2007,1 H1n1 Laiv Medimmune 2-49 Yr (Intranasal) 04/13/2009 H1n1 Miv Sanofi 3+ Yr (Injected) 06/09/2013 HepB Adult (Engerix-B, 20+ y rs, 3 dose series) 02/08/2006,01/02/2002 HepB, Unspecified Formulation 08/09/2001 Influenza IIV4 (Quadrivalent ) 0.5mL (07529) 03/31/2019,03/22/2018,03/21/2018,2016,03/23/2016,03/24/2015,03/23/2014 PCV13 (Prevnar) 05/09/2021(Deferred: Patient Ref used) PCV20 (Wiolgzk35) 03/10/2022(Deferred: Patient Refused - Patient will complete [...] Sex Assigned at Female 05/09/2021 7:19 PM DINKEY LOCOMOTIVE OPERATOR Gender Identity Female 05/09/2021 7:19 PM DINKEY LOCOMOTIVE OPERATOR Sexual Orientation Straight 05/09/2021 7: 19 PM DINKEY LOCOMOTIVE OPERATOR Last Filed Vital Signs Vital Sign Reading Time Taken Comments Blood Pressure 140/92 05/12/2022 2:52 PM DINKEY LOCOMOTIVE OPERATOR Pulse 88 05/12/2022 2:52 PM DINKEY LOCOMOTIVE OPERATOR Temperature 36.8 ??C (98.2 ??F) 05/12/2022 2:52 PM CS T Respiratory Rate 16 08/23/2020 11:41 AM DINKEY LOCOMOTIVE OPERATOR Oxygen Saturation 98% 05/12/2022 2:52 PM DINKEY LOCOMOTIVE OPERATOR Inhaled Oxygen Concentration - - Weight 96.2 kg (212 lb) 01/13/2022 8:26 AM CDT Height 167.6 cm (5' 6) 08/23/2020 10:00 AM DINKEY LOCOMOTIVE OPERATOR Body Mass Index 34.22 08/23/2020 10:00 AM DINKEY LOCOMOTIVE OPERATOR Plan of Treatment Health Maintenance Due Date [...] COLON, SCREENING/DIAGNOSTI C Routine 08/23/2020 10:45 AM DINKEY LOCOMOTIVE OPERATOR Left sided colitis with rectal bleeding (HRC) [...] * Endoscopy, colon, diagnostic (08/23/2020 10:45 AM DINKEY LOCOMOTIVE OPERATOR) Anatomical Region Laterality Modality Other 08/23/2020 10:4 5 AM DINKEY LOCOMOTIVE OPERATOR Narrative 08/23/2020 10:45 AM DINKEY LOCOMOTIVE OPERATOR Patient Name: Idania Duarte Procedure Date: [...] oxygen saturations were monitored ? continuously. The [id number] was ? introduced through the anus and [...] Procedure Code(s): ?? --- Professional --- ? 92942, Colonoscopy, flexible; with ? removal of tumor(s), polyp(s), or ? other lesion(s) by snare technique ? 49490, 59, Colonoscopy, flexible; ? with biopsy, single or multiple ? 76030, Moderate sedation; each ? additional 15 minutes [...] (additional time may ? be reported with 55639, as ? appropriate) Diagnosis Code(s): ?? --- Professional --- ? K63.5, Polyp of colon ? K51.40, Inflammatory polyps of colon ? without complications ? K51.50, Left sided colitis without ? complications CPT copyright 2019 [employer]. All rights reserved. The codes documented in this report are preliminary and upon aerospace mechanic review may be revised to meet [...] and oxygen saturations were monitored continuously. The [id number] was introduced through the anus and advanced [...] GI clinic. Procedure Code(s): --- Professional --- 76272, Colonoscopy, flexible; with removal of tumor(s), polyp(s), or other lesion(s) by snare technique 43360, 59, Colonoscopy, flexible; with biopsy, single or multiple 35460, Moderate sedation; each additional 15 minutes intraservice time G0500, Moderate sedation services provided by the same physician or other qualified health insurance healthcare consultant performing a gastrointestinal endoscopic service that sedation supports, requiring the presence of an independent trained observer to assist in the monitoring of the patient's level of consciousness and physiological status; initial 15 minutes of intra-service time; patient age 5 years or older (additional time may be reported with 40918, as appropriate) Diagnosis Code(s): --- Professional --- K63.5, Polyp of colon K51.40, Inflammatory polyps of colon without complications K51.50, Left sided colitis without complications CPT copyright 2019 [employer]. All rights reserved. The codes documented in this report are preliminary and upon aerospace mechanic review may be revised to meet current compliance requirements. Мария Rasmussen MD 08/23/2020 11:18:43 AM This document has been electronically signed. Number of Addenda: 0 Note Initiated On: 08/23/2020 10:45 AM Endoscopy Report Eusebio Haines MD ET GI PROCEDURE KIMBERLY MNAUEL * Lipid Panel and Direct LDL(If Needed) (04/08/2020 3:56 PM CDT) Cholesterol 175 0 - 199 mg/dL 04/08/2020 4:39 PM CDT [facility] Triglyceride 108 <=149 mg/dL 04/08/2020 4:39 PM CDT [facility] HDL Cholesterol 59 >=40 mg/dL 0 4:39 PM CDT [facility] LDL, Calculated 94 <130 mg/dL 0 4:39 PM CDT [facility] Non HDL Chol, Calculated 116 mg/dL 04/08/2020 4:39 PM CDT [facility] Cholesterol/HDL Ratio 3.0 04/08/2020 4:39 PM CDT [facility] Hours Fasting 4 04/08/2020 4:39 PM CDT [facility] Blood Venipuncture / Unknown 04/08/2020 3:56 PM CDT 04/08/2020 3:56 PM CDT Idania Andrade MD LAB_1 [facility] [address] [place] [address], [facility] [phone] * MM Mammogram Screening Bilat W CAD [...] CDT FINAL GYNECOLOGICAL CYTOLOGY REPORT Pathology #: [id number] ?Date Obtained: 12/17/2017 ? Date Received: 12/18/2017 [...] and false-negative reports may occur[place] [address] Idania Andrade MD LAB_1 Performing Organization Address [facility] [place] [address] * HIV ANTIBODY (03/24/2015 11:39 AM CDT) [facility] HIV 1/HIV 2 Non-React Non-Reacti ve HP CONVERSION 03/24/2015 11:3 9 AM CDT 03/24/2015 2:53 PM CDT Narrative HP CONVERSION - 03/25/2015 12:01 [place] [address] Kinga Pickett APRN, CNP LAB_1 Performing Organization Address [facility] de Phone Number HP CONVERSION * Hepatitis C Antibody, with Reflex (03/24/2015 11:39 AM CDT) [facility] Hepatitis C Antibody Non-React Non-Reacti ve HP CONVERSION 03/24/2015 11:3 9 AM CDT 03/24/2015 2:53 PM CDT Narrative HP CONVERSION - 03/24/2015 9:00 PM CDT Performed at [address] [address] Kinga Pickett APRN, CNP LAB_1 HP CONVERSION from Last 3 Months [...] 1:10 PM 07/12/2016 9:07 PM Care Teams Mailing Machine Operator Relationship Specialty Start Date End Date Sheeba Castillo APRN, [place] [address] [address] [place] [address] [address] PCP - General Nurse Practitioner 07/20/16
[2024-04-14 07:46] LABS: Calprotectin, Fecal 75 ug/g (<=49)
== END 2024-04-10 17:15 | disposition home or self-care (01) ==
LOC: NPINS 17:14
PROVIDERS: PCP Family Medicine; Visit Provider Nurse Practitioner Adult Health
DX: K51.511 Left sided colitis with rectal bleeding (principal)
CPT/HCPCS: 83993

== ENCOUNTER 2024-05-13 09:51 | Outpatient (CLI) | payer OTHER, SELFPAY ==
--- OUTSIDE RECORDS SUMMARY | 2024-05-13 09:54 | XMS_ITS | Clinical Summary ---
Author Organization [facility] Address [address] [place] [address] Care Team Providers Care Track Repair Supervisor Name Role Phone Sheeba Castillo APRN, CNP Primary Care Provid er Source Comments You are receiving this document as you are listed as the primary care provider,follow-up provider, or the patient has been referred to you for consultation.This is in compliance with the Medicare andOhio[facility] Hospital[facility] EHR Incentive Program,which states Providers [...] by mouth. Reported on 08/14/2016 02/15/2012 Active triamterene-hydro chlorothiazide (MAXZIDE-25) 37.5-25 MG tabletIndications :Essential hypertension (HRC) Take 1 Tablet by mouth daily. 90 Tablet 3 03/15/2020 Active norethindrone-eth estradiol (PIRMELLA 1/35) 1-35 MG-MCG tabletIndications :Well adult exam Take 1 Tablet by mouth daily. 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 0 03/10/2022 Active hyoscyamine (LEVSIN/SL) 0.125 MG sublingual tabletIndications :Irritable bowel syndrome, unspecified type PLACE 2 TABLETS (0.25 MG) UNDER TONGUE EVERY 4 HOURS NEEDED FOR CRAMPING. 60 Tablet 2 07/13/2023 Active predniSONE (DELTASONE) 10 MG tablet Take 3 Tablets (30 mg) by mouth daily for 14 days, THEN 2 Tablets (20 mg) daily for 7 days, THEN 1.5 Tablets (15 mg) daily for 7 days, THEN 1 Tablet (10 mg) daily for 7 days, THEN 0.5 Tablets (5 mg) daily for 7 days. 77 Tablet 04/14/2024 05/26/20 24 Active polyethylene glycol-electrolyt e (GO-LYTELY) 236 g oral solution Take as directed in patient instructions: drink 2000 mL at 6PM the evening before your procedure and 2000 mL 4 hours before leaving home for your procedure. 4000 mL 04/23/2024 04/28/20 24 Discontinued bisacodyl (DULCOLAX) 5 MG enteric coated tablet Take as directed in patient instructions: 4 tablets by mouth once at 5 PM the evening before your procedure. 4 Tablet 04/23/2024 04/28/20 24 Discontinued ondansetron (ZOFRAN) 4 MG tablet Take 1 Tablet (4 mg) by mouth every 8 hours as needed for Nausea (during bowel prep). 3 Tablet 04/23/2024 04/28/20 24 Discontinued Active Problems Problem Noted Date Diagnosed Date [...] genital symptoms 12/19/200404/25 Overview (02/14/2017): LW Onset: [id number] ; Pelvic Pain Female Irritable bowel syndrome 11/29/2002 Encounters Date Type Department Care Team Description 05/12/2024 Telephone Digestive Care at [facility] [address] [address] [place], [place] [address] Teri Ruth, CASK MAKER, WOOL CLEANER 05/09/2024 E-Visit Digestive Care at [facility] at [address] [place] [address] Teri Ruth, CASK MAKER, WOOL CLEANER 05/08/2024 2:10 PM MANAGED CARE LIAISON E-Visit Digestive Care at [facility] [address] [address] Eusebio Haines MD Dx: Left sided colitis with rectal bleeding (HRC) (Primary Dx) 05/08/2024 2:05 PM MANAGED CARE LIAISON E-Visit Digestive Care at [facility] at [address] [place] [address] Teri Ruth APRN, CNP Chief Comp: QUESTIONS, GENERAL 05/07/2024 Orders Only HIM DEPARTMENT ProviderAngelica MD 05/07/2024 Refill Digestive Care at [facility] at [address] [place] [place] [address] Teri Ruth APRN, CNP Refill (predniSONE (DELTASONE) 10 MG tablet [Pharmacy Med Name: predniSONE Oral Tablet 10 MG]) 04/28/2024 9:48 AM MANAGED CARE LIAISON Hospital Encounter Gastroenterology Procedures at [address] [address] Teri Ruth APRN, CNP Stoven, Samantha A, MD Left sided colitis with rectal bleeding (HRC) 04/23/2024 Notes/Orders Digestive Care at [address] [address] Мария Rasmussen MD 04/23/2024 E-Visit Endoscopy at [facility] at [address] [place] [address] Mychart, Generic Provider 04/23/2024 Telephone Digestive Care at [address] [address] Teri Ruth APRN, CNP 04/18/2024 Orders Only HIM DEPARTMENT ProviderAngelica MD 04/11/2024 Orders Only HIM DEPARTMENT ProviderAngelica MD 04/01/2024 Telephone Digestive Care at [address] [address] Teri Ruth APRN, CNP Provider Orders; LAB RESULTS 03/30/2024 9:00 PM CDT E-Visit Digestive Care at [facility] at [address] [place] [address] Teri Ruth, CASK MAKER, WOOL CLEANER Dx: Left sided colitis with rectal bleeding (HRC) (Primary Dx) from Last 3 Months Immunizations Name Administration Dates Next Due Flu Vac Preserv Free (3+yrs) 03/04/2012, 03/10/2011,03/10/2010,2008,04/17/2008,04/08/2008,04/03/2007,1 H1n1 Laiv Medimmune 2-49 Yr (Intranasal) 04/13/2009 H1n1 Miv Sanofi 3+ Yr (Injected) 06/09/2013 HepB Adult (Engerix-B, 20+ y rs, 3 dose series) 02/08/2006,01/02/2002 HepB, Unspecified Formulation 08/09/2001 Influenza IIV4 (Quadrivalent ) 0.5mL (10836) 03/31/2019,03/22/2018,03/21/2018,2016,03/23/2016,03/24/2015,03/23/2014 PCV13 (Prevnar) 05/09/2021(Deferred: Patient Ref used) PCV20 ([id number]) 03/10/2022(Deferred: Patient Refused - Patient will complete [...] Sex Assigned at Female 05/09/2021 7:19 PM MANAGED CARE LIAISON Gender Identity Female 05/09/2021 7:19 PM MANAGED CARE LIAISON Sexual Orientation Straight 05/09/2021 7: 19 PM MANAGED CARE LIAISON Last Filed Vital Signs Vital Sign Reading Time Taken Comments Blood Pressure 108/63 04/28/2024 11:25 AM MANAGED CARE LIAISON Pulse 79 04/28/2024 11:25 AM MANAGED CARE LIAISON Temperature 36.8 C (98.2 F) 05/12/2022 2:52 PM MANAGED CARE LIAISON Respiratory Rate 16 04/28/2024 11:25 AM MANAGED CARE LIAISON Oxygen Saturation 95% 04/28/2024 11:25 AM MANAGED CARE LIAISON Inhaled Oxygen Concentration - - Weight 84.8 kg (187 lb) 04/28/2024 9:53 AM MANAGED CARE LIAISON Height 167.6 cm (5' 6) 04/28/2024 9:53 AM MANAGED CARE LIAISON Body Mass Index 30.18 04/28/2024 9:53 AM MANAGED CARE LIAISON Plan of Treatment Upcoming Encounters Date Type Department Care Team (Late st Contact Info) Description 08/04/2024 7:50 AM MANAGED CARE LIAISON Telemedicine Digestive Care at [facility] at [place] [id number] [place] [address]. [place] [address] Teri Ruth, CASK MAKER, WOOL CLEANER [address] [place] [address] Health Maintenance Due Date Last Done Comments Pneumococcal (1 - PCV) 1983 Cervical Cancer Screening 12/17/20202017, 09/30/2014, 08/11/2011, Additional history exists Adult Preventive Visit 03/15/2021 , 12/19/2018, 12/17/2017, Additional history exists Diabetes Screening- (based on age and BMI) 12/19/2021 12/19/2018, 03/04/2018, 03/31/2016 Mammogram 05/25/2022 05/25/2021 (Comp leted), 01/15/2018 COVID-19 Vaccine ( season) 2024 03/27/2024, 03/20/2023, 04/21/2022, Additional history exists Cholesterol 04/08/2025 04/08/2020, 03/27, 02/20/2019, Additional history exists Colonoscopy 04/28/2029 04/28/2024, 03/0 06/2020, 09/22/2015 DTaP/Tdap/Td (3 - Tdap) 02/11/2031 02/12/20, 07/04/2010, 11/30/2003 HepB Completed 02/08/2006, 12/23, 08/09/2001 HIV Screening (Preventive Services) Completed 03/24/2015 Hep C Screening (Preventive Services) Completed 03/24/2015 Zoster/Shingles Completed 08/03/2022, 03/14/2019 Influenza Completed 03/27/2024, 02/24, 2022, Additional history exists HepA Aged Out No [...] Procedure Name Priority Date/Time Associated Diagnosis Comments LABORATORY REPORT 05/07/2024 COLONOSCOPY SCREENING Routine 04/28/2024 10:22 AM MANAGED CARE LIAISON Left sided colitis with rectal bleeding (HRC) LABORATORY REPORT 04/18/2024 LABORATORY REPORT 04/11/2024 LIPID PANEL & DIRECT LDL (IF NEEDED) Routine 04/08/2020 3:56 PM CDT Well adult exam HGB A1C Routine 12/19/2018 4:30 PM CDT Well adult exam MM MAMMOGRAM [...] Recently Relevant to Health Maintenance Results * LABORATORY REPORT (05/07/2024) Only the most recent of3 resultswithin the time period is included. Interface Provider MD DUMMY/OTHER/AR * Colonoscopy Screening (04/28/2024 10:22 AM MANAGED CARE LIAISON) Anatomical Region Laterality Modality Other 04/28/2024 10:2 2 AM MANAGED CARE LIAISON Narrative 04/28/2024 10:22 AM MANAGED CARE LIAISON Patient Name: Idania Galeana Procedure Date: 04/28/2024 10:22 AM Date of : 1975 Admit Type: Outpatient Age: 49 Gender: Female Note Status: Finalized Attending MD: Мария Rasmussen MD, Procedure: Colonoscopy Indications: Hematochezia, Disease activity assessment of left-sided chronic ulcerative colitis, Assess therapeutic response to therapy of left-sided chronic ulcerative colitis Providers: Мария Rasmussen MD, Marie Rueda RN Referring MD: Teri Ruth Medicines: Midazolam 5 mg IV, Fentanyl 125 micrograms IV Complications: No immediate complications. Procedure: After I obtained informed consent, the scope was passed under direct vision. Throughout the procedure, the patient's blood pressure, pulse, and oxygen saturations were monitored continuously. The [id number] was introduced through the anus and advanced to 2 cm into the ileum. The colonoscopy was performed without difficulty. The patient tolerated the procedure well. The quality of the bowel preparation was good. Anatomical landmarks were photographed. Findings: The perianal and digital rectal examinations were normal. The terminal ileum appeared normal. A 2 mm polyp was found in the ascending colon. The polyp was sessile. The polyp was removed with a cold biopsy forceps. Resection and retrieval were complete. Normal mucosa was found in the transverse colon, in the ascending colon and in the cecum. Biopsies were taken with a cold forceps for histology. A scar was found in the sigmoid colon, in the descending colon and at the splenic flexure. The scar was unremarkable in appearance. Biopsies were taken with a cold forceps for histology. Inflammation was found in a continuous and circumferential pattern from the anus to the rectum. This was graded as Tam Score 2 (moderate, with marked erythema, absent vascular pattern, friability, erosions). Biopsies were taken with a cold forceps for histology. Scattered pseudopolyps were found in the entire colon. The exam was otherwise without abnormality. Moderate Sedation: Moderate (conscious) sedation was administered by the nurse and supervised by the endoscopist. The following parameters were monitored: oxygen saturation, heart rate, blood pressure, and response to care. Total physician intraservice time was 15 minutes. This time is the duration from the initial medication administration until the neurology stroke physician assists with initial maneuvers (biopsy / polypectomy / etc.), or if no maneuvers are performed, until the endoscopist leaves the room. Impression: - The examined portion of the ileum was normal. - One 2 mm polyp in the ascending colon, removed with a cold biopsy forceps. Resected and retrieved. - Normal mucosa in the transverse colon, in the ascending colon and in the cecum. Biopsied. - Scar in the sigmoid colon, in the descending colon and at the splenic flexure. Biopsied. - Moderately active (Tam Score 2) proctitis ulcerative colitis. Biopsied. - Pseudopolyps in the entire examined colon. - The examination was otherwise normal. Recommendation: - Discharge patient to home. - Await pathology results. - Repeat colonoscopy for surveillance based on pathology results. - Return to GI clinic. Procedure Code(s): --- Professional --- 33529, Colonoscopy, flexible; with biopsy, single or multiple G0500, Moderate sedation services provided by the same physician or other qualified health landcare facilitator performing a gastrointestinal endoscopic service that sedation supports, requiring the presence of an independent trained observer to assist in the monitoring of the patient's level of consciousness and physiological status; initial 15 minutes of intra-service time; patient age 5 years or older (additional time may be reported with 82661, as appropriate) Diagnosis Code(s): --- Professional --- D12.2, Benign neoplasm of ascending colon K63.89, Other specified diseases of intestine K51.20, Ulcerative (chronic) proctitis without complications K51.40, Inflammatory polyps of colon without complications K92.1, Melena (includes Hematochezia) K51.50, Left sided colitis without complications CPT copyright 2021 [employer]. All rights reserved. The codes documented in this report are preliminary and upon etl tester review may be revised to meet current compliance requirements. Мария Rasmussen MD 04/28/2024 11:05:58 AM This document has been electronically signed. Number of Addenda: 0 Note Initiated On: 04/28/2024 10:22 AM Endoscopy Report Procedure Note Мария Rasmussen MD - 04/28/2024 Patient Name: Idania Galeana Procedure Date: 04/28/2024 10:22 AM Date of : 1975 Admit Type: Outpatient Age: 49 Gender: Female Note Status: Finalized Attending MD: Мария Rasmussen MD, Procedure: Colonoscopy Indications: Hematochezia, Disease activity assessment of left-sided chronic ulcerative colitis, Assess therapeutic response to therapy of left-sided chronic ulcerative colitis Providers: Мария Rasmussen MD, Marie Rueda RN Referring MD: Teri Rtuh Medicines: Midazolam 5 mg IV, Fentanyl 125 micrograms IV Complications: No immediate complications. Procedure: After I obtained informed consent, the scope was passed under direct vision. Throughout the procedure, the patient's blood pressure, pulse, and oxygen saturations were monitored continuously. The [id number] was introduced through the anus and advanced to 2 cm into the ileum. The colonoscopy was performed without difficulty. The patient tolerated the procedure well. The quality of the bowel preparation was good. Anatomical landmarks were photographed. Findings: The perianal and digital rectal examinations were normal. The terminal ileum appeared normal. A 2 mm polyp was found in the ascending colon. The polyp was sessile. The polyp was removed with a cold biopsy forceps. Resection and retrieval were complete. Normal mucosa was found in the transverse colon, in the ascending colon and in the cecum. Biopsies were taken with a cold forceps for histology. A scar was found in the sigmoid colon, in the descending colon and at the splenic flexure. The scar was unremarkable in appearance. Biopsies were taken with a cold forceps for histology. Inflammation was found in a continuous and circumferential pattern from the anus to the rectum. This was graded as Tam Score 2 (moderate, with marked erythema, absent vascular pattern, friability, erosions). Biopsies were taken with a cold forceps for histology. Scattered pseudopolyps were found in the entire colon. The exam was otherwise without abnormality. Moderate Sedation: Moderate (conscious) sedation was administered by the nurse and supervised by the endoscopist. The following parameters were monitored: oxygen saturation, heart rate, blood pressure, and response to care. Total physician intraservice time was 15 minutes. This time is the duration from the initial medication administration until the neurology stroke physician assists with initial maneuvers (biopsy / polypectomy / etc.), or if no maneuvers are performed, until the endoscopist leaves the room. Impression: - The examined portion of the ileum was normal. - One 2 mm polyp in the ascending colon, removed with a cold biopsy forceps. Resected and retrieved. - Normal mucosa in the transverse colon, in the ascending colon and in the cecum. Biopsied. - Scar in the sigmoid colon, in the descending colon and at the splenic flexure. Biopsied. - Moderately active (Tam Score 2) proctitis ulcerative colitis. Biopsied. - Pseudopolyps in the entire examined colon. - The examination was otherwise normal. Recommendation: - Discharge patient to home. - Await pathology results. - Repeat colonoscopy for surveillance based on pathology results. - Return to GI clinic. Procedure Code(s): --- Professional --- 18131, Colonoscopy, flexible; with biopsy, single or multiple G0500, Moderate sedation services provided by the same physician or other qualified health landcare facilitator performing a gastrointestinal endoscopic service that sedation supports, requiring the presence of an independent trained observer to assist in the monitoring of the patient's level of consciousness and physiological status; initial 15 minutes of intra-service time; patient age 5 years or older (additional time may be reported with 85120, as appropriate) Diagnosis Code(s): --- Professional --- D12.2, Benign neoplasm of ascending colon K63.89, Other specified diseases of intestine K51.20, Ulcerative (chronic) proctitis without complications K51.40, Inflammatory polyps of colon without complications K92.1, Melena (includes Hematochezia) K51.50, Left sided colitis without complications CPT copyright 2021 [employer]. All rights reserved. The codes documented in this report are preliminary and upon etl tester review may be revised to meet current compliance requirements. Мария Rasmussen MD 04/28/2024 11:05:58 AM This document has been electronically signed. Number of Addenda: 0 Note Initiated On: 04/28/2024 10:22 AM Endoscopy Report Teri Ruth CASK MAKER, WOOL CLEANER ET GI PROCEDU RE ORDERABLES * Lipid Panel and Direct LDL(If Needed) (04/08/2020 3:56 PM CDT) Cholesterol 175 0 - 199 mg/dL 04/08/2020 4:39 PM CDT [facility] Triglyceride 108 <=149 mg/dL 04/08/2020 4:39 PM T [facility] HDL Cholesterol 59 >=40 mg/dL 0 4:39 PM T [facility] LDL, Calculated 94 <130 mg/dL 0 4:39 PM T [facility] Non HDL Chol, Calculated 116 mg/dL 04/08/2020 4:39 PM T [facility] Cholesterol/HDL Ratio 3.0 04/08/2020 4:39 PM T [facility] Hours Fasting 4 04/08/2020 4:39 PM T [facility] Blood Venipuncture / Unknown 04/08/2020 3:56 PM CDT 04/08/2020 3:56 PM CDT Idania Andrade MD LAB_1 [facility] [address] [place] [address], [facility] [phone] * Hgb A1C (12/19/2018 4:30 PM CDT) Hemoglobin A1C 5.5 <=5.6 % 12/20/2018 9:23 AM CDT [facility] Blood Venipuncture / Unknown 12/19/2018 4:30 PM CDT 12/19/2018 4:30 PM CDT Idania Andrade MD LAB_1 [facility] [address] * MM Mammogram Screening Bilat W CAD [...] There is no radiographic evidence of malignancy. Idania Andrade MD RAD STEPHANE * Pap Smear (12/17/2017 4:23 PM CDT) 12/17/2017 4:23 PM CDT Narrative PN SOFT - 12/25/2017 5:11 PM CDT FINAL GYNECOLOGICAL CYTOLOGY REPORT Pathology #: [id number] Date Obtained: 12/17/2017 Date Received: 12/18/2017 INTERPRETATION/RESULTS: Negative for Intraepithelial Lesion or Malignancy. SPECIMEN ADEQUACY: Satisfactory for Evaluation. Endocervical cells/transformation zone component present. Verified on 12/25/2017 by JARROD DE LA FUENTE(ASCP) (electronic signature) CLINICAL NOTES: Abnormal bleeding: No, LMP: continuous OCP, Menstrual status: None Apply, Current form of therapy: Hormone Therapy LIQUID BASED PAP SMEAR SPECIMEN TYPE: ROUTINE CERVICAL PAP TEST PLEASE NOTE: The pap smear is a screening test designed to aid in the detection of cervical cancer and its precursor lesions. It is not a diagnostic procedure and should not be used as the sole means of detecting cervical cancer. Both false-positive and false-negative reports may occur[place] [id number] Idania Andrade MD LAB_1 Performing Organization Address [facility] de Phone Number PN SOFT [address] [place] [id number] * HIV ANTIBODY (03/24/2015 11:39 AM CDT) HIV 1/HIV 2 Non-React Non-Reacti ve HP CONVERSION 03/24/2015 11:3 9 AM CDT 03/24/2015 2:53 PM CDT Narrative HP CONVERSION - 03/25/2015 12:01 AM CDT Performed at [facility], [address] [place] [address] Kinga Pickett APRN, CNP LAB_1 Performing Organization Address [facility] de Phone Number HP CONVERSION * Hepatitis C Antibody, with Reflex (03/24/2015 11:39 AM CDT) Hepatitis C Antibody Non-React Non-Reacti ve HP CONVERSION 03/24/2015 11:3 9 AM CDT 03/24/2015 2:53 PM CDT Narrative HP CONVERSION - 03/24/2015 9:00 PM CDT Performed at [address] [address] Kinga Pickett APRN, CNP LAB_1 Performing Organization Address [facility] de Phone Number HP CONVERSION from [...] 1:10 PM 07/12/2016 9:07 PM Care Teams Track Repair Supervisor Relationship Specialty Start Date End Date Sheeba Castillo, CASK MAKER, WOOL CLEANER [address] [place] [address] PCP - General Nurse Practitioner 07/20/16
--- OUTSIDE RECORDS SUMMARY | 2024-05-13 09:54 | XMS_ITS | Clinical Summary ---
Author Organization [facility] Address [place], [place] [address] Care Team Providers Care General Manager Farm Name Role Phone Noemi Abernathy MD Primary Care Provider + Noemi Abernathy MD Unavailable [phone] Encounters Date Type Department Care Team Description 05/09/2024 Travel 04/07/2024 Transcribe Orders [facility] [address] [place] [address] Jose Angel Meehan MD 03/07/2024 [facility] [address] [address] Carlos Rodriguez MD from Last 3 Months Social History Tobacco Use Types Packs/Day Years Used Date Smoking Tobacco: Never Assessed Sex and Gender Information Value Date Recorded Sex Assigned at Not on file Gender Identity Not on file Sexual Orientation Not on file Plan of Treatment Upcoming Encounters Date Type Department Care Team (Late st Contact Info) Description 05/13/2024 10:20 AM IMPROVEMENT SPEC Office Visit [facility] [address] [place] [address] Jose Angel Meehan MD [address] [place] [address] Arrived Health Maintenance Due Date Last Done Comments [...] age 21-65 02/12/2024 02/11/2021 COVID-19 vaccine series (2023- season) 2024 03/27/2024, 04/21/2022, 03/23/2021 Influenza for age 9-49 02/24/2024 Pneumococcal series for age 6-64 Aged Out No longer eligible b ased on patient's age to complete this topic Procedures Procedure Name Priority Date/Time Associated Diagnosis Comments AMB EPIDURAL STEROID INJECTION Routine 05/13/2024 8:06 AM IMPROVEMENT SPEC Radiculopathy, lumbar region HPV HIGH RISK Routine 02/11/2021 12:00 PM CDT from Last 3 Months or Most Recently Relevant to Health Maintenance Results * HPV HIGH RISK (02/11/2021 12:00 PM CDT) TYPE 16 Negative Negative 02/15/2021 5:05 AM CDT [facility] TYPE 18 Negative Negative 02/15/2021 5:05 AM CDT [facility] OTHER HIGH RISK TYPES Negative Negative 02/15/2021 5:05 AM CDT [facility] Other (Cervical/Vagina l) 02/11/2021 12:00 PM CDT 02/14/2021 7:24 AM CDT [facility] - 02/15/2021 5:05 AM CDT HPV types 16, 18, 31, 33, 35, 39, 45, 51, 52, 56, 58, 59, 66 and 68 DNA were undetectable or below the pre-set threshold. Methodology: [employer] [place] 4800 HPV Test Noemi Abernathy MD 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 [facility] [address] [place] [address], from Last 3 Months or Most Recently Relevant to Health Maintenance Care Teams General Manager Farm Relationship Specialty Start Date End Date Noemi Abernathy MD [address] [place] [address] PCP - General Family Practice 04/08/24 Noemi Abernathy MD [address] [place] [address] Family Practice 04/08/24
--- OUTSIDE RECORDS SUMMARY | 2024-05-13 09:55 | XMS_ITS | Encounter Summary ---
Author Organization [employer] Address [address] [place] [address] Care Team Providers Care Credit Assistant Name Role Phone Sheeba Castillo APRN, CNP Primary Care Provid er Encounter Details Date Type Department Care Team (Late st Contact Info) Description 07/22/2016 Correspondence [facility] [address] [place], [place] [id number] Fernanda Lancaster PA-C [address] [place] [address] RETURN TO WORK AUTH Social History Tobacco Use Types Packs/Day Years Used Date Smoking Tobacco: Former Cigarettes 0.3 15 1 06/25/1999 - 04/25/2015 Smokeless Tobacco: Never Alcohol Use Standard Drinks/Week Comments Yes 0 (1 standard drink = 0.6 oz pur e alcohol) rarely Sex and Gender Information Value Date Recorded Sex Assigned at Female 05/09/2021 7:19 PM AGRICULTURAL TECHNICIAN Gender Identity Female 05/09/2021 7:19 PM AGRICULTURAL TECHNICIAN Sexual Orientation Straight 05/09/2021 7: 19 PM AGRICULTURAL TECHNICIAN documented as of this encounter Plan of Treatment Upcoming Encounters Date Type Department Care Team (Late st Contact Info) Description 08/04/2024 7:50 AM AGRICULTURAL TECHNICIAN Telemedicine Digestive Care at [facility] at [address] [place], [place] [phone] Teri Ruth APRN, DATA ASSISTANT [address] [place] [phone] documented as of this encounter Visit Diagnoses Not on filedocumented in this encounter Care Teams Credit Assistant Relationship Specialty Start Date End Date Sheeba Castillo APRN, DATA ASSISTANT [address] [place] [address] PCP - General Nurse Practitioner 07/20/16 documented as of this encounter
--- OUTSIDE RECORDS SUMMARY | 2024-05-13 09:55 | XMS_ITS | Encounter Summary ---
Author Organization [employer] Address [address] [place] [address] Care Team Providers Care Poultry Inseminator Name Role Phone Sheeba Castillo APRN, CNP Primary Care Provid er Encounter Details Date Type Department Care Team (Late st Contact Info) Description 05/09/2024 E-Visit Digestive Care at [facility] at [address] [place], [place] [id number] Teri Ruth APRN, SIERRA [address] [place] [address] Social History Tobacco Use Types Packs/Day [...] Sex Assigned at Female 05/09/2021 7:19 PM BELTING INSPECTOR Gender Identity Female 05/09/2021 7:19 PM BELTING INSPECTOR Sexual Orientation Straight 05/09/2021 7: 19 PM BELTING INSPECTOR documented as of this encounter Plan of Treatment Upcoming Encounters Date Type Department Care Team (Late st Contact Info) Description 08/04/2024 7:50 AM BELTING INSPECTOR Telemedicine Digestive Care at [facility] at [facility] 6500 [facility] 6500 [facility]. [place], [place] [phone] Teri Ruth APRN, SENIOR APPLICATION SOFTWARE ENGINEER [address] [place], [place] [phone] documented as of this encounter Visit Diagnoses Not on filedocumented in this encounter Care Teams Poultry Inseminator Relationship Specialty Start Date End Date Sheeba Castillo APRN, SENIOR APPLICATION SOFTWARE ENGINEER [address] [place] [phone] PCP - General Nurse Practitioner 07/20/16 documented as of this encounter
--- OUTSIDE RECORDS SUMMARY | 2024-05-13 09:55 | XMS_ITS | Encounter Summary ---
Author Organization [employer] Address [address] [place] [address] Care Team Providers Care Combine Driver Name Role Phone Sheeba Castillo APRN, SIERRA Primary Care Provid er Reason for Visit * Reason Comments QUESTIONS, GENERAL Entered automaticall y based on patient selection in [employer]. Encounter Details Date Type Department Care Team (Late st Contact Info) Description 05/08/2024 2:10 PM DIETARY SERVER E-Visit Digestive Care at [facility] [address] [phone] Eusebio Haines MD [address] [place] [address] Dx: Left sided colitis with rectal bleeding [...] Sex Assigned at Female 05/09/2021 7:19 PM DIETARY SERVER Gender Identity Female 05/09/2021 7:19 PM DIETARY SERVER Sexual Orientation Straight 05/09/2021 7: 19 PM DIETARY SERVER documented as of this encounter Nursing Notes * Eusebio Haines MD - 05/08/2024 3:05 PM CST Please see recent communication thread via the patient's [employer] account. It appears she is having a flare of inflammatory bowel disease but need to rule out other potentialmimickers. Detailed response sent to the patient with recommendations on the next steps which include blood tests and stool tests. Please contact the patient and help arrange to get these tests I entered today into epic completed.Thanks. ARY SERVER documented in this encounter Plan of Treatment Upcoming Encounters Date Type Department Care Team (Late st Contact Info) Description 08/04/2024 7:50 AM DIETARY SERVER Telemedicine Digestive Care at [facility] at [address] [place], [place] [phone] Teri Ruth, WELT CUTTER, NATURAL RESOURCES EXTENSION EDUCATOR [address] [place], [place] [phone] Scheduled Orders Name Type Priority Associated Diagnoses Orde r Schedule Basic Metabolic Panel Lab Routine Left sided colitis with rectal bleeding (HRC) Diarrhea, unspecified type Expected: 05/08/2024, Expires: 08/06/2024 Liver Panel (Hepatic Function Panel) Lab Routine Left sided colitis with rectal bleeding (HRC) Diarrhea, unspecified type Expected: 05/08/2024, Expires: 08/06/2024 Complete Blood Count -W/Diff Lab Routine Left sided colitis with rectal bleeding (HRC) Diarrhea, unspecified type Expected: 05/08/2024, Expires: 08/06/2024 C-Reactive Protein Lab Routine Left sided colitis with rectal bleeding (HRC) Diarrhea, unspecified type Expected: 05/08/2024, Expires: 08/06/2024 C.Difficile Toxin,Molecular Detection, Microbiology Routine Left sided colitis with rectal bleeding (HRC) Diarrhea, unspecified type Expected: 05/08/2024, Expires: 08/06/2024 Enteric Stool Pathogens Panel Microbiology Routine Left sided colitis with rectal bleeding (HRC) Diarrhea, unspecified type Expected: 05/08/2024, Expires: 08/06/2024 documented as of this encounter Visit Diagnoses Diagnosis Left sided colitis with rectal bleeding (HRC)- Primary Left sided ulcerative (chronic) colitis Diarrhea, unspecified type documented in this encounter Care Teams Combine Driver Relationship Specialty Start Date End Date Sheeba Castillo, WELT CUTTER, NATURAL RESOURCES EXTENSION EDUCATOR [address] [place] [address] PCP - General Nurse Practitioner 07/20/16 documented as of this encounter
--- OUTSIDE RECORDS SUMMARY | 2024-05-13 09:55 | XMS_ITS | Encounter Summary ---
Author Organization [employer] Address [address] [place] [address] Care Team Providers Care Skin Therapist Name Role Phone Sheeba Castillo APRN, CNP Primary Care Provid er Encounter Details Date Type Department Care Team (Late st Contact Info) Description 04/23/2024 Telephone Digestive Care at [facility] [place] [address] [address] [address] [place] [address] Teri Ruth APRN, CNP [address] [place] [address] Social History Tobacco Use Types Packs/Day [...] Sex Assigned at Female 05/09/2021 7:19 PM GLOBAL POSITION SYSTEM TECHNICIAN Gender Identity Female 05/09/2021 7:19 PM GLOBAL POSITION SYSTEM TECHNICIAN Sexual Orientation Straight 05/09/2021 7: 19 PM GLOBAL POSITION SYSTEM TECHNICIAN documented as of this encounter Nursing Notes * Sindy Anderson, PHARMACY OPERATIONS SPECIALIST - 04/23/2024 10:31 AM CDT Called patient and given message from provider below. Patient acknowledged understanding of message. Patient is warm transferred to scheduling to make colon appointment. Patient had no further questions or concerns. * Teri Ruth APRN, CNP - 04/23/2024 9:17 AM CDT Would recommend that she schedule colonoscopy. Could we assist in helping her to get the next available date, based on her schedule. She has a current colonoscopy order. * Sindy Anderson LPN - 04/23/2024 9:04 AM CDT Patient states that she is still on vacation and the prednisone is not working. Patient states thatshe has been taking 40mg of prednisone since Sunday04/18/24. Patient would like to know if there is somehting wlese that her provider can send in for her. Patient flies back this even. Patient states that drinking and eating makes her have to go to the bathroom. Bright red blood, mucus, stools x 10+ daily, abd pain 4/10, bloating. Just did Entyvio infusion first Sunday in Mar 2024. documented in this encounter Plan of Treatment Upcoming Encounters Date Type Department Care Team (Late st Contact Info) Description 08/04/2024 7:50 AM GLOBAL POSITION SYSTEM TECHNICIAN Telemedicine Digestive Care at [facility] at [address] [place] [address]. [place], [place] [phone] Teri Ruth APRN, CNP [address] [place] [address] documented as of this encounter Visit Diagnoses Not on filedocumented in this encounter Care Teams Skin Therapist Relationship Specialty Start Date End Date Sheeba Castillo, RUDY, QUALITY SYSTEMS SPECIALIST [address] [place] [address] PCP - General Nurse Practitioner 07/20/16 documented as of this encounter
--- OUTSIDE RECORDS SUMMARY | 2024-05-13 09:55 | XMS_ITS | Encounter Summary ---
Author Organization [employer] Address [address] [place] [address] Care Team Providers Care Title Clerk Automobile Name Role Phone Sheeba Castillo APRN, CNP Primary Care Provid er Reason for Visit * Reason Comments QUESTIONS, GENERAL Entered automaticall y based on patient selection in [employer]. Encounter Details Date Type Department Care Team (Late st Contact Info) Description 03/30/2024 9:00 PM CDT E-Visit Digestive Care at [facility] at [facility] [address] [place] [address]. [place], [place] [address] Teri Spain APRN, SIERRA [address] [place] [phone] Dx: Left sided colitis with rectal bleeding [...] Sex Assigned at Female 05/09/2021 7:19 PM DISPLAY SPECIALIST Gender Identity Female 05/09/2021 7:19 PM DISPLAY SPECIALIST Sexual Orientation Straight 05/09/2021 7: 19 PM DISPLAY SPECIALIST documented as of this encounter Progress Notes * Teri Spain APRN, CNP - 04/14/2024 12:37 PM CDTAddended by: TERI SPAIN on: 04/14/2024 12:37 PM Modules accepted: Orders documented in this encounter Nursing Notes * Sindy Anderson LPN - 04/23/2024 10:01 AM CDT Patient called in and a TE has been created for this new issue. Closing this evisit at this time. documented in this encounter Plan of Treatment Upcoming Encounters Date Type Department Care Team (Late st Contact Info) Description 08/04/2024 7:50 AM DISPLAY SPECIALIST Telemedicine Digestive Care at [facility] at [address] [place], [place] [phone] Teri Spain APRN, CNP [address] [place] [address] Scheduled Orders Name Type Priority Associated Diagnoses [...] colitis documented in this encounter Care Teams Title Clerk Automobile Relationship Specialty Start Date End Date Sheeba Castillo, RUDY, GIANT TIRE REPAIRER [address] [place] [address] PCP - General Nurse Practitioner 07/20/16 documented as of this encounter
--- OUTSIDE RECORDS SUMMARY | 2024-05-13 09:55 | XMS_ITS | Encounter Summary ---
Author Organization [employer] Address [address] [place] [address] Care Team Providers Care Affiliate Marketing Manager Name Role Phone Sheeba Castillo APRN, CNP Primary Care Provid er Encounter Details Date Type Department Care Team (Latest Contact Info) Description 04/18/2024 Orders Only HIM DEPARTMENT Provider, [place] [address] Social History Tobacco Use Types Packs/Day Years [...] Sex Assigned at Female 05/09/2021 7:19 PM DIRECTOR OF HEALTH EDUCATION Gender Identity Female 05/09/2021 7:19 PM DIRECTOR OF HEALTH EDUCATION Sexual Orientation Straight 05/09/2021 7: 19 PM DIRECTOR OF HEALTH EDUCATION documented as of this encounter Plan of Treatment Upcoming Encounters Date Type Department Care Team (Late st Contact Info) Description 08/04/2024 7:50 AM DIRECTOR OF HEALTH EDUCATION Telemedicine Digestive Care at [facility] at [address] [facility] [place] [address] Teri Ruth, SIERRA GRANT [address] [place] [address] documented as of this encounter Procedures Procedure Name Priority Date/Time Associated Diagnosis Comments LABORATORY REPORT 04/18/2024 documented in this encounter Results * LABORATORY REPORT (04/18/2024) Interface Provider MD DUMMY/OTHER/AR documented in this encounter Visit Diagnoses Not on filedocumented in this encounter Care Teams Affiliate Marketing Manager Relationship Specialty Start Date End Date Sheeba Castillo, SIERRA [address] [place] [address] PCP - General Nurse Practitioner 07/20/16 documented as of this encounter
--- OUTSIDE RECORDS SUMMARY | 2024-05-13 09:55 | XMS_ITS | Encounter Summary ---
Author Organization [employer] Address [address] [place] [address] Care Team Providers Care Puncher Name Role Phone Sheeba Castillo APRN, CNP Primary Care Provid er Reason for Visit * Reason Comments Refill predniSONE (DELTASON E) 10 MG tablet [Pharmacy Med Name: predniSONE Oral Tablet 10 MG] Encounter Details Date Type Department Care Team (Late st Contact Info) Description 05/07/2024 Refill Digestive Care at [facility] at [facility] [address] [place] [address]. [place] [address] Oleg Spain APRN, SIERRA [address] [place] [address] Refill (predniSONE (DELTASONE) 10 MG tablet [Pharmacy Med Name: predniSONE Oral Tablet 10 MG]) Social History Tobacco Use Types Packs/Day [...] Sex Assigned at Female 05/09/2021 7:19 PM PROGRAMMING EQUIPMENT OPERATOR Gender Identity Female 05/09/2021 7:19 PM PROGRAMMING EQUIPMENT OPERATOR Sexual Orientation Straight 05/09/2021 7: 19 PM PROGRAMMING EQUIPMENT OPERATOR documented as of this encounter Nursing Notes * Bryan High Xrwcomm - 05/07/2024 10:47 AM CST predniSONE (DELTASONE) 10 MG tablet [Pharmacy Med Name: predniSONE Oral Tablet 10 MG] Medication started: 04/14/2024 Last ordered by OLEG SPAIN: 04/14/2024 (23 days ago) QTY: 77, Refills: 0, Sig: take 3 tablets (30 mg) by mouth daily for 14 days, then 2 tablets (20 mg) daily for 7 days, then 1.5 tablets (15 mg) daily for 7 days, then 1 tablet (10 mg) daily for 7 days, then 0.5 tablets (5 mg) daily for 7 days. (changed but equivalent) -> Medication cannot be delegated. Last qualifying visit: 05/21/2023 (with OLEG SPAIN) Next scheduled visit: 09/29/2024 (with ELLIE VARGHESE) [employer] Embedded Refills, Reference: [id number], 05/07/2024 10:47:05 AM PROGRAMMING EQUIPMENT OPERATOR, [place]: ADRIANNA [facility]UR[facility]-PN ([id number]) RAMMING EQUIPMENT OPERATOR documented in this encounter Plan of Treatment Upcoming Encounters Date Type Department Care Team (Late st Contact Info) Description 08/04/2024 7:50 AM PROGRAMMING EQUIPMENT OPERATOR Telemedicine Digestive Care at [facility] at [facility] 6500 [facility] [address] [place] [address]. [place], [place] [address] Oleg Spain APRN, STEAM CLEANER [address] [place], [place] [phone] documented as of this encounter Visit Diagnoses Not on filedocumented in this encounter Care Teams Puncher Relationship Specialty Start Date End Date Sheeba Castillo APRN, STEAM CLEANER [address] [place] [id number] PCP - General Nurse Practitioner 07/20/16 documented as of this encounter
--- OUTSIDE RECORDS SUMMARY | 2024-05-13 09:55 | XMS_ITS | Encounter Summary ---
Author Organization [employer] Address [address] [place] [address] Care Team Providers Care Parole Or Probation Officer Name Role Phone Sheeba Castillo APRN, CNP Primary Care Provid er Encounter Details Date Type Department Care Team (Latest Contact Info) Description 04/11/2024 Orders Only HIM DEPARTMENT Provider, [place] [address] Social History Tobacco Use Types Packs/Day Years [...] Sex Assigned at Female 05/09/2021 7:19 PM JET MECHANIC Gender Identity Female 05/09/2021 7:19 PM JET MECHANIC Sexual Orientation Straight 05/09/2021 7: 19 PM JET MECHANIC documented as of this encounter Plan of Treatment Upcoming Encounters Date Type Department Care Team (Late st Contact Info) Description 08/04/2024 7:50 AM JET MECHANIC Telemedicine Digestive Care at [facility] at [address] [place] [address] Teri Ruth, SIERRA GRANT [address] [place] [address] documented as of this encounter Procedures Procedure Name Priority Date/Time Associated Diagnosis Comments LABORATORY REPORT 04/11/2024 documented in this encounter Results * LABORATORY REPORT (04/11/2024) Interface Provider MD DUMMY/OTHER/AR documented in this encounter Visit Diagnoses Not on filedocumented in this encounter Care Teams Parole Or Probation Officer Relationship Specialty Start Date End Date Sheeba Castillo, SIERRA [address] [address] [place] [address] PCP - General Nurse Practitioner 07/20/16 documented as of this encounter
--- OUTSIDE RECORDS SUMMARY | 2024-05-13 09:55 | XMS_ITS ---
Author Organization [employer] Address [address] [place] [address] Care Team Providers Care Continuous Improvement Director Name Role Phone Sheeba Castillo APRN, SIERRA [...] treatments are documented for this patient in [facility]. Treatments may have been administered in another system. Resolved Problems Problem Noted Date Diagnosed Date Resolved Date JANNET (generalized anxiety disorder) 01/18/2015 11/18/2015 Situational stress 01/18/2015 6 Chronic headaches 08/11/2011 12/17/2017 Concussion 08/11/2011 12/17/2017 Overview (01/27/2016): February 2008, thrown from horse. History of tobacco use 08/11/201112/17 Hx of tonsillectomy 08/11/2011 12/15/19 17 Female genital symptoms 12/19/200404/25 Overview (02/14/2017): LW Onset: [id number] ; Pelvic Pain Female Irritable bowel syndrome 11/29/2002
--- OUTSIDE RECORDS SUMMARY | 2024-05-13 09:55 | XMS_ITS | Encounter Summary ---
Author Organization [employer] Address [address] [place] [address] Care Team Providers Care Slice Cutting Machine Operator Name Role Phone Sheeba Castillo APRN, CNP Primary Care Provid er Encounter Details Date Type Department Care Team (Latest Contact Info) Description 05/07/2024 Orders Only HIM DEPARTMENT Provider, MD Angel[place] [address] Social History Tobacco Use Types Packs/Day Years [...] Sex Assigned at Female 05/09/2021 7:19 PM WARP SCOURING VAT TENDER Gender Identity Female 05/09/2021 7:19 PM WARP SCOURING VAT TENDER Sexual Orientation Straight 05/09/2021 7: 19 PM WARP SCOURING VAT TENDER documented as of this encounter Plan of Treatment Upcoming Encounters Date Type Department Care Team (Late st Contact Info) Description 08/04/2024 7:50 AM WARP SCOURING VAT TENDER Telemedicine Digestive Care at [facility] at [address] [facility] [place] [address] Teri Ruth, SIERRA GRANT [address] [place] [address] documented as of this encounter Procedures Procedure Name Priority Date/Time Associated Diagnosis Comments LABORATORY REPORT 05/07/2024 documented in this encounter Results * LABORATORY REPORT (05/07/2024) Interface Provider MD DUMMY/OTHER/AR documented in this encounter Visit Diagnoses Not on filedocumented in this encounter Care Teams Slice Cutting Machine Operator Relationship Specialty Start Date End Date Sheeba Castillo, SIERRA GRANT [address] [place] [phone] PCP - General Nurse Practitioner 07/20/16 documented as of this encounter
--- OUTSIDE RECORDS SUMMARY | 2024-05-13 09:55 | XMS_ITS | Encounter Summary ---
Author Organization [employer] Address [address] [place] [address] Care Team Providers Care Flange Turner Name Role Phone Sheeba Castillo APRN, CNP Primary Care Provid er Reason for Referral * Procedure/Equipment (Routine) - Closed Specialty Diagnoses / Procedures Referred By Contac t Referred To Contact Diagnoses Left sided colitis with rectal bleeding (HRC) Procedures Colonoscopy Screening Teri Ruth APRN, CNP [address] [place] [address] Referral ID Status Reason Start Date Expiration Date Visits Re quested Visits Authorized [id number] Closed 05/21/2023 05/21/2025 1 1 ET ROLLER ENGINEER Reason for Visit * Procedure/Equipment (Routine) - Closed Specialty Diagnoses / Procedures Referred By Contac t Referred To Contact Diagnoses Left sided colitis with rectal bleeding (HRC) Procedures Colonoscopy Screening Teri Ruth APRN, CNP [address] [place] [address] Referral ID Status Reason Start Date Expiration Date Visits Re quested Visits Authorized [id number] Closed 05/21/2023 05/21/2025 1 1 Encounter Details Date Type Department Care Team (Late st Contact Info) Description 04/28/2024 9:[address] ROLLER ENGINEER Hospital Encounter Gastroenterology Procedures at [facility] [address] [address] Teri Ruth, PACKAGER, CIRCUIT DESIGNER [address] [place], [place] [phone] Мария Rasmussen MD [address] [place] [address] Left sided colitis with rectal bleeding (HRC) Social History Tobacco [...] Sex Assigned at Female 05/09/2021 7:[address] ROLLER ENGINEER Gender Identity Female 05/09/2021 7:[address] ROLLER ENGINEER Sexual Orientation Straight 05/09/2021 7: [address] ROLLER ENGINEER documented as of this encounter Last Filed Vital Signs Vital Sign Reading Time Taken Comments Blood Pressure 108/63 04/28/2024 11:[address] ROLLER ENGINEER Pulse 79 04/28/2024 11:[address] ROLLER ENGINEER Temperature - - Respiratory Rate 16 04/28/2024 11:[address] ROLLER ENGINEER Oxygen Saturation 95% 04/28/2024 11:[address] ROLLER ENGINEER Inhaled Oxygen Concentration - - Weight 84.8 kg (187 lb) 04/28/2024 9:[address] ROLLER ENGINEER Height 167.6 cm (5' 6) 04/28/2024 9:[address] ROLLER ENGINEER Body Mass Index 30.18 04/28/2024 9:[address] ROLLER ENGINEER documented in this encounter Procedure Notes * Мария Rasmussen MD - 04/28/2024 10:22 AM CST Patient Name: Idania Galeana Procedure Date: 04/28/2024 [...] and oxygen saturations were monitored continuously. The [id number] was introduced through the anus and advanced [...] from the initial medication administration until the employment security officer assists with initial maneuvers (biopsy / polypectomy [...] GI clinic. Procedure Code(s): --- Professional --- 87312, Colonoscopy, flexible; with biopsy, single or multiple G0500, Moderate sedation services provided by the same physician or other qualified health ambulatory care coordinator performing a gastrointestinal endoscopic service that sedation supports, requiring the presence of an independent trained observer to assist in the monitoring of the patient's level of consciousness and physiological status; initial 15 minutes of intra-service time; patient age 5 years or older (additional time may be reported with 61641, as appropriate) Diagnosis Code(s): --- Professional --- D12.2, Benign neoplasm of ascending colon K63.89, Other specified diseases of intestine K51.20, 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 All rights reserved. The codes documented in this report are preliminary and upon intake counselor review may be revised to meet current compliance requirements. Мария Rasmussen MD 04/28/2024 11:05:58 AM This document has been electronically signed. Number of Addenda: 0 Note Initiated On: 04/28/2024 10:22 AM Endoscopy Report ET ROLLER ENGINEER documented in this encounter Plan of Treatment Upcoming Encounters Date Type Department Care Team (Late st Contact Info) Description 08/04/2024 7:[address] ROLLER ENGINEER Telemedicine Digestive Care at [facility] at [address] [place] [address] Teri Ruth, PACKAGER, CIRCUIT DESIGNER [address] [place] [phone] Pending Results Name Type Priority Associated Diagnoses Date /Time Surgical Path - GI Lab Routine Left sided colitis with rectal bleeding (HRC) 04/28/2024 11:[address] ROLLER ENGINEER Scheduled Orders Name Type Priority Associated Diagnoses Orde r Schedule Surgical Path - GI Lab Routine Left sided colitis with rectal bleeding (HRC) Release Upon Ordering for 1 Occurrences starting 04/28/2024 until 05/02/2024, 1 completed documented as of this encounter Procedures Procedure Name Priority Date/Time Associated Diagnosis Comments COLONOSCOPY SCREENING Routine 04/28/2024 10:[address] ROLLER ENGINEER Left sided colitis with rectal bleeding (HRC) documented in this encounter Results * Colonoscopy Screening (04/28/2024 10:[address] ROLLER ENGINEER) Anatomical Region Laterality Modality Other 04/28/2024 10:[address] ROLLER ENGINEER Narrative 04/28/2024 10:[address] ROLLER ENGINEER Patient Name: Idania Galeana Procedure Date: 04/28/2024 [...] and oxygen saturations were monitored continuously. The [id number] was introduced through the anus and advanced [...] from the initial medication administration until the employment security officer assists with initial maneuvers (biopsy / polypectomy [...] GI clinic. Procedure Code(s): --- Professional --- 42934, Colonoscopy, flexible; with biopsy, single or multiple G0500, Moderate sedation services provided by the same physician or other qualified health ambulatory care coordinator performing a gastrointestinal endoscopic service that sedation supports, requiring the presence of an independent trained observer to assist in the monitoring of the patient's level of consciousness and physiological status; initial 15 minutes of intra-service time; patient age 5 years or older (additional time may be reported with 28752, as appropriate) Diagnosis Code(s): --- Professional --- D12.2, Benign neoplasm of ascending colon K63.89, Other specified diseases of intestine K51.20, 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 All rights reserved. The codes documented in this report are preliminary and upon intake counselor review may be revised to meet current [...] and oxygen saturations were monitored continuously. The [id number] was introduced through the anus and advanced [...] from the initial medication administration until the employment security officer assists with initial maneuvers (biopsy / polypectomy [...] GI clinic. Procedure Code(s): --- Professional --- 62126, Colonoscopy, flexible; with biopsy, single or multiple G0500, Moderate sedation services provided by the same physician or other qualified health ambulatory care coordinator performing a gastrointestinal endoscopic service that sedation supports, requiring the presence of an independent trained observer to assist in the monitoring of the patient's level of consciousness and physiological status; initial 15 minutes of intra-service time; patient age 5 years or older (additional time may be reported with 39487, as appropriate) Diagnosis Code(s): --- Professional --- D12.2, Benign neoplasm of ascending colon K63.89, Other specified diseases of intestine K51.20, 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 All rights reserved. The codes documented in this report are preliminary and upon intake counselor review may be revised to meet current compliance requirements. Мария Rasmussen MD 04/28/2024 11:05:58 AM This document has been electronically signed. Number of Addenda: 0 Note Initiated On: 04/28/2024 10:22 AM Endoscopy Report Teri Ruth PACKAGER, CIRCUIT DESIGNER ET GI PROCEDU RE ORDERABLES documented in this encounter Visit Diagnoses Diagnosis Left sided colitis with rectal bleeding (HRC) Left sided ulcerative (chronic) colitis * Plan of Care - Leanna Penn RN - 04/28/2024 11:28 AM CST Patient alert, oriented. Denies pain at this time. Tolerating liquids. Discussed discharge teaching. Patient/family given handouts. Verbalized understanding. ET ROLLER ENGINEER documented in this encounter Administered Medications Active Administered Medications - up to 3 most recent administrations Medication Order MAR Action Action Date Dose Rate Site 0.9% sodium chloride solution 10-60 mL 10-60 mL, Intravenous, PRN, Line Care, Starting on Sun04/28/24 at 0824, Flush line with 2 mL after administration of each incremental dose of IV medication. Given 04/28/2024 10:[address] ROLLER ENGINEER 10 mL fentaNYL (SUBLIMAZE) injection 25-100 mcg 25-100 mcg, Intravenous, PRN, Pain, moderate sedation, Starting on Sun04/28/24 at 0824, Until Discontinued, Administer in 25-100 mcg increments as directed by endoscopy procedure MD up to a total of 200 mcg. Given 04/28/2024 10:[address] ROLLER ENGINEER 25 mcg Given 04/28/2024 10:[address] ROLLER ENGINEER 50 mcg Given 04/28/2024 10:[address] ROLLER ENGINEER 50 mcg midazolam (VERSED) injection 0.5-2 mg 0.5-2 mg, Intravenous, PRN, Sedation, Starting on Sun04/28/24 at 0824, Until Discontinued, Administer in 0.5 - 2 mg increments as directed by endoscopy procedure MD up to a total of 6 mg Given 04/28/2024 10:[address] ROLLER ENGINEER 1 mg Given 04/28/2024 10:[address] ROLLER ENGINEER 2 mg Given 04/28/2024 10:[address] ROLLER ENGINEER 2 mg Inactive Administered Medications - up to 3 most recent administrations Medication Order MAR Action Action Date Dose Rate Site fentaNYL (SUBLIMAZE) 50 MCG/ML injection - ADS Override Pull Starting on Sun04/28/24 at 1021, Until Sun04/28/24 at 1032, For 1 dose, Marie Rueda: cabinet override midazolam (VERSED) 1 MG/1ML injection - ADS Override Pull Starting on Sun04/28/24 at 1021, Until Sun04/28/24 at 1032, For 1 dose, Marie Rueda: cabinet override documented in this encounter Care Teams Flange Turner Relationship Specialty Start Date End Date Sheeba Castillo, PACKAGER, CIRCUIT DESIGNER [address] [place] [address] PCP - General Nurse Practitioner 07/20/16 documented as of this encounter
--- OUTSIDE RECORDS SUMMARY | 2024-05-13 09:55 | XMS_ITS | Encounter Summary ---
Author Organization [employer] Address [address] [place] [address] Care Team Providers Care Tool Grinder Operator Surface Name Role Phone Sheeba Castillo APRN, CNP Primary Care Provid er Reason for Visit * Reason Comments Provider Orders LAB RESULTS Encounter Details Date Type Department Care Team (Late st Contact Info) Description 04/01/2024 Telephone Digestive Care at [facility] [address] [address] Teri Ruth APRN, CNP [address] [place] [address] Provider Orders; LAB RESULTS Social History Tobacco Use Types Packs/Day Years [...] Sex Assigned at Female 05/09/2021 7:19 PM DRYING TUNNEL OPERATOR Gender Identity Female 05/09/2021 7:19 PM DRYING TUNNEL OPERATOR Sexual Orientation Straight 05/09/2021 7: 19 PM DRYING TUNNEL OPERATOR documented as of this encounter Nursing Notes * Kinga Burns RN - 04/14/2024 2:47 PM CDT Received patient's faxed lab results - redirected to GI Dept fax [phone]. Sent to HIM for scanning to chart. * Teri Ruth APRN, CNP - 04/14/2024 12:38 PM CDT Message sent to patient via my chart. Prednisone 30 mg taper sent to patient's pharmacy. * Sindy Anderson LPN - 04/14/2024 9:11 AM CDT - Ask about urgency, cramping, puss/blood and pain. Patient is having urgency that is gas,mucus/blood then stool. This all happens almost immediate to the feeling of the urgent of bowel feeling. Dose pack of steroid last week due to her back and goingon vacation this week. Patient stated that during this time this dose pack did in fact help her. Pain level is now a 3-4/10. * Teri Ruth APRN, CNP - 04/14/2024 8:49 AM CDT Would you please call Idania for an update of symptoms? Result is usually not indicative of a colitis flare. - Ask about urgency, cramping, puss/blood and pain. - What does she mean by pus? Is it mucous or other? * Sindy Anderson LPN - 04/14/2024 8:30 AM CDT [employer] Teacher spoke to Sindy aragon at [facility] stated that the result of the Fecal Calprotectin was 75. Sindy will be faxing result over to fax at [phone] as well. Routing to provider for review. * Teri Ruth, ELECTRICAL FOREMAN, LINE CLEANER - 04/11/2024 2:18 PM CDT Noted. Thank you. * Sindy Anderson LPN - 04/11/2024 2:01 PM CDT [employer] Teacher called [facility] at to check on status of Fecal Calprotectin. [employer] Teacher wastold that sample was submitted and is still pending at this time. NG TUNNEL OPERATOR * Beth Nichols RN - 04/10/2024 2:17 PM CDT Pt notified and verbalized understanding of below. Pt will submit sample OSMANY. * Marni Smith RN - 04/10/2024 9:09 AM CDT Fecal Calprotectin result not received. RN contacted [facility] who states that they never received an order for this, therefore, it was never run. [facility] order for fecal calprotectin filled out and signed by provider. Faxed to [phone], confirmation was received. RN contacted lab, they confirmed they did have the order. LMTCB with the patient. Patient needs to return to the lab to pickling drum operator the kit to provide the stool sample for the missing fecal calprotectin. * Marni Smith RN - 04/08/2024 1:03 PM CDT Remainder of lab results received. Placed in OFFICE CASHIER inbox. * Marni Smith RN - 04/08/2024 12:57 PM CDT Stool study results received via fax to [place]. Placed in OFFICE CASHIER inbox for review. Still waiting for other labs. * Teri Ruth APRN, SIERRA - 04/01/2024 5:19 PM CDT Noted. Thank you. * Sindy Anderson LPN - 04/01/2024 2:42 PM CDT Fuchsia filled out for labs to be completed per provider requested and signed by Dr. Lopez due to provider is not in person today. Patient requested lab orders to be faxed to [facility] lab. Fuchsia is faxed to [phone]. Received confirmation of faxed received on 04/01/24 at 2:44 pm. Patient is called and notified of fax has been sent for labs to patient preferred lab. Patient acknowledged understanding and had no further questions at this time. documented in this encounter Plan of Treatment Upcoming Encounters Date Type Department Care Team (Late st Contact Info) Description 08/04/2024 7:50 AM DRYING TUNNEL OPERATOR Telemedicine Digestive Care at [facility] at [facility] [address] [facility] [address] [facility] [place] [address] Teri Ruth, ELECTRICAL FOREMAN, LINE CLEANER [address] [place] [address] documented as of this encounter Visit Diagnoses Not on filedocumented in this encounter Care Teams Tool Grinder Operator Surface Relationship Specialty Start Date End Date Sheeba Castillo, RUDY, LINE CLEANER [address] [place] [address] PCP - General Nurse Practitioner 07/20/16 documented as of this encounter
--- OUTSIDE RECORDS SUMMARY | 2024-05-13 09:55 | XMS_ITS | Encounter Summary ---
Author Organization [employer] Address [address] [place] [address] Care Team Providers Care Electrotype Finisher Name Role Phone Sheeba Castillo APRN, CNP Primary Care Provid er Reason for Visit * Reason Comments QUESTIONS, GENERAL Entered automaticall y based on patient selection in [employer]. Encounter Details Date Type Department Care Team (Late st Contact Info) Description 05/08/2024 2:05 PM TOOL AND FIXTURE REPAIRER E-Visit Digestive Care at [facility] at [facility] [address] [place] [address]. [place] [address] Teri Ruth APRN, SIERRA [address] [place] [address] Chief Comp: QUESTIONS, GENERAL Social History Tobacco Use Types Packs/Day Years [...] Sex Assigned at Female 05/09/2021 7:19 PM TOOL AND FIXTURE REPAIRER Gender Identity Female 05/09/2021 7:19 PM TOOL AND FIXTURE REPAIRER Sexual Orientation Straight 05/09/2021 7: 19 PM TOOL AND FIXTURE REPAIRER documented as of this encounter Plan of Treatment Upcoming Encounters Date Type Department Care Team (Late st Contact Info) Description 08/04/2024 7:50 AM TOOL AND FIXTURE REPAIRER Telemedicine Digestive Care at [facility] at [facility] [address] [facility] [address] [place] [address]. [place], [place] [phone] Teri Ruth APRN, MANAGER ROOFING [address] [place] [phone] documented as of this encounter Visit Diagnoses Not on filedocumented in this encounter Care Teams Electrotype Finisher Relationship Specialty Start Date End Date Sheeba Castillo APRN, MANAGER ROOFING [address] [place] [address] PCP - General Nurse Practitioner 07/20/16 documented as of this encounter
--- OUTSIDE RECORDS SUMMARY | 2024-05-13 09:55 | XMS_ITS | Encounter Summary ---
Author Organization [employer] Address [address] [place] [address] Care Team Providers Care Agency Service Representative Name Role Phone Sheeba Castillo APRN, CNP Primary Care Provid er Encounter Details Date Type Department Care Team (Late st Contact Info) Description 05/12/2024 Telephone Digestive Care at [facility] [place] [address] [address] [address] [place] [address] Teri Ruth APRN, CNP [address] [place] [address] Social History Tobacco Use Types [...] Sex Assigned at Female 05/09/2021 7:19 PM HEEL SPLITTER Gender Identity Female 05/09/2021 7:19 PM HEEL SPLITTER Sexual Orientation Straight 05/09/2021 7: 19 PM HEEL SPLITTER documented as of this encounter Nursing Notes * Sindy Anderson, TEETEE - 05/12/2024 1:50 PM CST [facility] for vedolizumab quantitation with antibodies lab filled out and signed by Dr. Mariia Holguin is faxed to [facility] at [phone]. Received fax confirmation back on 05/12/24 at 2:22pm SPLITTER documented in this encounter Plan of Treatment Upcoming Encounters Date Type Department Care Team (Late st Contact Info) Description 08/04/2024 7:50 AM HEEL SPLITTER Telemedicine Digestive Care at [facility] at [address] [place], [place] [phone] Teri Ruth APRN, CHIEF OF HARBOR PATROL [address] [place] [phone] documented as of this encounter Visit Diagnoses Not on filedocumented in this encounter Care Teams Agency Service Representative Relationship Specialty Start Date End Date Sheeba Castillo, EMERGENCY ROOM RN, CHIEF OF HARBOR PATROL [address] [place] [address] PCP - General Nurse Practitioner 07/20/16 documented as of this encounter
--- OUTSIDE RECORDS SUMMARY | 2024-05-13 09:55 | XMS_ITS | Encounter Summary ---
Author Organization [employer] Address [address] [place] [address] Care Team Providers Care Financial Reporting Manager Name Role Phone Sheeba Castillo APRN, CNP Primary Care Provid er Encounter Details Date Type Department Care Team (Late st Contact Info) Description 07/22/2016 Correspondence [facility] [address] [place], [place] [phone] Fernanda Lancaster PA-C [address] [place] [address] RETURN TO WORK AUTH Social History Tobacco Use Types Packs/Day Years Used Date Smoking Tobacco: Former Cigarettes 0.3 15 1 06/25/1999 - 04/25/2015 Smokeless Tobacco: Never Alcohol Use Standard Drinks/Week Comments Yes 0 (1 standard drink = 0.6 oz pur e alcohol) rarely Sex and Gender Information Value Date Recorded Sex Assigned at Female 05/09/2021 7:19 PM SENIOR LIVING SALES COUNSELOR Gender Identity Female 05/09/2021 7:19 PM SENIOR LIVING SALES COUNSELOR Sexual Orientation Straight 05/09/2021 7: 19 PM SENIOR LIVING SALES COUNSELOR documented as of this encounter Plan of Treatment Upcoming Encounters Date Type Department Care Team (Late st Contact Info) Description 08/04/2024 7:50 AM SENIOR LIVING SALES COUNSELOR Telemedicine Digestive Care at [facility] at [address] [place], [place] [phone] Teri Ruth APRN, DRAFTER [address] [place] [phone] documented as of this encounter Visit Diagnoses Not on filedocumented in this encounter Care Teams Financial Reporting Manager Relationship Specialty Start Date End Date Sheeba Castillo APRN, DRAFTER [address] [place] [address] PCP - General Nurse Practitioner 07/20/16 documented as of this encounter
--- OUTSIDE RECORDS SUMMARY | 2024-05-13 09:55 | XMS_ITS | Encounter Summary ---
Author Organization [facility] Address [address] [place] [address] Care Team Providers Care Reconditioner Name Role Phone Sheeba Castillo APRN, CNP Primary Care Provid er Encounter Details Date Type Department Care Team (Late st Contact Info) Description 04/23/2024 E-Visit Endoscopy at [address] [place], [place] [address] [place], [place] [address] Social History Tobacco Use Types Packs/Day Years [...] Sex Assigned at Female 05/09/2021 7:19 PM SOLAR ENERGY SYSTEMS ENGINEER Gender Identity Female 05/09/2021 7:19 PM SOLAR ENERGY SYSTEMS ENGINEER Sexual Orientation Straight 05/09/2021 7: 19 PM SOLAR ENERGY SYSTEMS ENGINEER documented as of this encounter Plan of Treatment Upcoming Encounters Date Type Department Care Team (Late st Contact Info) Description 08/04/2024 7:50 AM SOLAR ENERGY SYSTEMS ENGINEER Telemedicine Digestive Care at [place] [address] [facility] [address] [facility] [place], [place] [phone] Teri Ruth APRN, FASHION BUYER [address] [place], [place] [phone] documented as of this encounter Visit Diagnoses Not on filedocumented in this encounter Care Teams Reconditioner Relationship Specialty Start Date End Date Sheeba Castillo APRN, FASHION BUYER [address] [place] [address] PCP - General Nurse Practitioner 07/20/16 documented as of this encounter
--- OUTSIDE RECORDS SUMMARY | 2024-05-13 09:55 | XMS_ITS | Encounter Summary ---
Author Organization [employer] Address [address] [place] [address] Care Team Providers Care Needle Bar Molder Name Role Phone Sheeba Castillo APRN, CNP Primary Care Provid er Encounter Details Date Type Department Care Team (Late st Contact Info) Description 07/22/2016 Correspondence [facility] [address] [place], [place] [phone] Fernanda Lancaster PA-C [address] [place] [address] RETURN TO WORK AUTH Social History Tobacco Use Types Packs/Day Years Used Date Smoking Tobacco: Former Cigarettes 0.3 15 1 06/25/1999 - 04/25/2015 Smokeless Tobacco: Never Alcohol Use Standard Drinks/Week Comments Yes 0 (1 standard drink = 0.6 oz pur e alcohol) rarely Sex and Gender Information Value Date Recorded Sex Assigned at Female 05/09/2021 7:19 PM CRYSTAL FLAT GRINDER Gender Identity Female 05/09/2021 7:19 PM CRYSTAL FLAT GRINDER Sexual Orientation Straight 05/09/2021 7: 19 PM CRYSTAL FLAT GRINDER documented as of this encounter Plan of Treatment Upcoming Encounters Date Type Department Care Team (Late st Contact Info) Description 08/04/2024 7:50 AM CRYSTAL FLAT GRINDER Telemedicine Digestive Care at [facility] at [address] [place], [place] [address] Teri Ruth APRN, AUDIO VISUAL DESIGN ENGINEER [address] [place] [phone] documented as of this encounter Visit Diagnoses Not on filedocumented in this encounter Care Teams Needle Bar Molder Relationship Specialty Start Date End Date Sheeba Castillo APRN, AUDIO VISUAL DESIGN ENGINEER [address] [place] [address] PCP - General Nurse Practitioner 07/20/16 documented as of this encounter
--- OUTSIDE RECORDS SUMMARY | 2024-05-13 09:55 | XMS_ITS | Encounter Summary ---
Author Organization [employer] Address [address] [place] [address] Care Team Providers Care Roll Machine Operator Name Role Phone Sheeba Castillo APRN, CNP Primary Care Provid er Encounter Details Date Type Department Care Team (Late st Contact Info) Description 07/21/2016 Correspondence [facility] [address] [place], [place] [phone] Fernanda Lancaster PA-C [address] [place] [address] DISABILITY CLAIM FAMILY MEDICAL LEAVE Social History Tobacco Use Types Packs/Day Years Used Date Smoking Tobacco: Former Cigarettes 0.3 15 1 06/25/1999 - 04/25/2015 Smokeless Tobacco: Never Alcohol Use Standard Drinks/Week Comments Yes 0 (1 standard drink = 0.6 oz pur e alcohol) rarely Sex and Gender Information Value Date Recorded Sex Assigned at Female 05/09/2021 7:19 PM ANNUAL GREENHOUSE MANAGER Gender Identity Female 05/09/2021 7:19 PM ANNUAL GREENHOUSE MANAGER Sexual Orientation Straight 05/09/2021 7: 19 PM ANNUAL GREENHOUSE MANAGER documented as of this encounter Plan of Treatment Upcoming Encounters Date Type Department Care Team (Late st Contact Info) Description 08/04/2024 7:50 AM ANNUAL GREENHOUSE MANAGER Telemedicine Digestive Care at [facility] at [address] [place], [place] [address] Teri Ruth APRN, BENCH LOOM WEAVER [address] [place] [phone] documented as of this encounter Visit Diagnoses Not on filedocumented in this encounter Care Teams Roll Machine Operator Relationship Specialty Start Date End Date Sheeba Castillo APRN, BENCH LOOM WEAVER [address] [place] [address] PCP - General Nurse Practitioner 07/20/16 documented as of this encounter
--- OUTSIDE RECORDS SUMMARY | 2024-05-13 09:55 | XMS_ITS | Encounter Summary ---
Author Organization [email or web address] Address [address] [place] [address] Care Team Providers Care Home Care Manager Name Role Phone Sheeba Castillo APRN, CNP Primary Care Provid er Encounter Details Date Type Department Care Team (Late st Contact Info) Description 04/23/2024 Notes/Orders Digestive Care at [facility] [address] [address] Мария Rasmussen MD [address] [facility] [address] [place] [address] Social History Tobacco Use Types [...] Sex Assigned at Female 05/09/2021 7:19 PM PIPE FITTINGS MOLDER Gender Identity Female 05/09/2021 7:19 PM PIPE FITTINGS MOLDER Sexual Orientation Straight 05/09/2021 7: 19 PM PIPE FITTINGS MOLDER documented as of this encounter Plan of Treatment Upcoming Encounters Date Type Department Care Team (Late st Contact Info) Description 08/04/2024 7:50 AM PIPE FITTINGS MOLDER Telemedicine Digestive Care at [facility] at [facility] 6[address] [facility] 6500 [facility] [place], [place] [address] Teri Ruth APRN, LIBRARY CUSTOMER SERVICE CLERK [address] [place], [place] [phone] documented as of this encounter Visit Diagnoses Not on filedocumented in this encounter Care Teams Home Care Manager Relationship Specialty Start Date End Date Sheeba Castillo APRN, LIBRARY CUSTOMER SERVICE CLERK [address] [place] [id number] PCP - General Nurse Practitioner 07/20/16 documented as of this encounter
== END 2024-05-13 09:52 | disposition home or self-care (01) ==
LOC: INJ CL 09:52
PROVIDERS: PCP Family Medicine; Visit Provider Family Medicine
DX: M54.16 Radiculopathy, lumbar region (principal); M51.369 Other intervertebral disc degeneration, lumbar region without mention of lumbar back pain or lower extremity pain
CPT/HCPCS: 64483; J1100; Q9966

== ENCOUNTER 2024-05-26 07:18 | Outpatient (CLI) | payer OTHER, SELFPAY ==
--- OUTSIDE RECORDS SUMMARY | 2024-05-26 07:20 | XMS_ITS | Clinical Summary ---
Author Organization [facility] Address [place], [place] [address] Care Team Providers Care Sheriff'S Detective Name Role Phone Noemi Abernathy MD Primary Care Provider + Noemi Abernathy MD Unavailable [phone] Medications No known medications Active Problems No known active problems Encounters Date Type Department Care Team Description 05/13/2024 10:20 AM MANAGER OF ORGANIZATIONAL DEVELOPMENT Office Visit [facility] at [facility] [address] [place] [address] Jose Angel Meehan MD Procedure (Left L4-5 TFESI) 05/09/2024 Travel 04/07/2024 Transcribe Orders [facility] [address] [place] [address] Jose Angel Meehan MD 03/07/2024 [facility] [address] [address] Carlos Rodriguez MD from Last 3 Months Social History Tobacco Use Types Packs/Day Years Used Date Smoking Tobacco: Never Assessed Sex and Gender Information Value Date Recorded Sex Assigned at Not on file Gender Identity Not on file Sexual Orientation Not on file Obstetrics History Plan of Treatment Health Maintenance Due Date [...] 02/12/2024 02/11/2021 Influenza for age 9-49 02/24/2024 COVID-19 vaccine series Completed 03/27/20, 04/21/2022, 03/23/2021 Pneumococcal series for age 6-64 Aged Out No longer eligible b ased on patient's age to complete this topic Procedures Procedure Name Priority Date/Time Associated Diagnosis Comments AMB EPIDURAL STEROID INJECTION Routine 05/13/2024 12:00 AM MANAGER OF ORGANIZATIONAL DEVELOPMENT Radiculopathy, lumbar region HPV HIGH RISK Routine 02/11/2021 12:00 PM CDT from Last 3 Months or Most Recently Relevant to Health Maintenance Results * AMB EPIDURAL STEROID INJECTION (05/13/2024 12:00 AM MANAGER OF ORGANIZATIONAL DEVELOPMENT) Jose Angel Meehan MD NEUROLOGY ORD * HPV HIGH RISK (02/11/2021 12:00 PM CDT) TYPE 16 Negative Negative 02/15/2021 5:05 AM CDT [facility] TYPE 18 Negative Negative 02/15/2021 5:05 AM CDT [facility] OTHER HIGH RISK TYPES Negative Negative 02/15/2021 5:05 AM CDT [facility] Other (Cervical/Vagina l) 02/11/2021 12:00 PM CDT 02/14/2021 7:24 AM CDT Narrative [facility] - 02/15/2021 5:05 AM CDT HPV types 16, 18, 31, 33, 35, 39, 45, 51, 52, 56, 58, 59, 66 and 68 DNA were undetectable or below the pre-set threshold. Methodology: Lul Robyn 4800 HPV Test Noemi Abernathy MD 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 [facility] [address] [place] [address], from Last 3 Months or Most Recently Relevant to Health Maintenance Care Teams Sheriff'S Detective Relationship Specialty Start Date End Date Noemi Abernathy MD [address] [place] [address] PCP - General Family Practice 04/08/24 Noemi Abernathy MD [address] [place] [address] Family Practice 04/08/24
--- OUTSIDE RECORDS SUMMARY | 2024-05-26 07:21 | XMS_ITS | Encounter Summary ---
Author Organization [employer] Address [address] [place] [address] Care Team Providers Care Waistband Setter Name Role Phone Sheeba Castillo APRN, CNP Primary Care Provid er Encounter Details Date Type Department Care Team (Late st Contact Info) Description 04/23/2024 Telephone Digestive Care at [facility] [place] [address] [address] [address] [place] [address] Teri Ruth APRN, CNP [address] [place] [address] Social History Tobacco Use Types [...] Sex Assigned at Female 05/09/2021 7:19 PM DIETETIC TECHNICIAN Gender Identity Female 05/09/2021 7:19 PM DIETETIC TECHNICIAN Sexual Orientation Straight 05/09/2021 7: 19 PM DIETETIC TECHNICIAN documented as of this encounter Nursing Notes * Sindy Anderson, TEETEE - 04/23/2024 10:31 AM CDT Called patient [...] st Contact Info) Description 08/04/2024 7:50 AM DIETETIC TECHNICIAN Telemedicine Digestive Care at [facility] at [address] [place] [address]. [place], [place] [address] Teri Ruth APRN, CNP [address] [place] [address] documented as of this encounter Visit Diagnoses Not on filedocumented in this encounter Care Teams Waistband Setter Relationship Specialty Start Date End Date Sheeba Castillo, RUDY, ASSOCIATE DIRECTOR QA [address] [place] [address] PCP - General Nurse Practitioner 07/20/16 documented as of this encounter
--- OUTSIDE RECORDS SUMMARY | 2024-05-26 07:21 | XMS_ITS ---
Author Organization [employer] Address [address] [place] [address] Care Team Providers Care Family Coach Name Role Phone Sheeba Castillo APRN, SIERRA [...] documented for this patient in [facility]. Treatments may have been administered in another system. Resolved Problems Problem Noted Date Diagnosed Date Resolved Date JANNET (generalized anxiety disorder) 01/18/2015 11/18/2015 Situational stress 01/18/2015 6 Chronic headaches 08/11/2011 12/17/2017 Concussion 08/11/2011 12/17/2017 Overview (01/27/2016): February 2008, thrown from horse. History of tobacco use 08/11/201112/17 Hx of tonsillectomy 08/11/2011 12/15/19 17 Female genital symptoms 12/19/200404/25 Overview (02/14/2017): LW Onset: [id number] ; Pelvic Pain Female Irritable bowel syndrome 11/29/2002
--- OUTSIDE RECORDS SUMMARY | 2024-05-26 07:21 | XMS_ITS | Encounter Summary ---
Author Organization [employer] Address [address] [place] [address] Care Team Providers Care Cook Helper Preserves Name Role Phone Sheeba Castillo APRN, CNP Primary Care Provid er Reason for Visit * Reason Comments Provider Orders LAB RESULTS Encounter Details Date Type Department Care Team (Late st Contact Info) Description 04/01/2024 Telephone Digestive Care at [facility] [address] [address] Teri Ruth APRN, CNP [address] [place] [address] Provider Orders; LAB RESULTS Social [...] Sex Assigned at Female 05/09/2021 7:19 PM PERSONNEL SCHEDULER Gender Identity Female 05/09/2021 7:19 PM PERSONNEL SCHEDULER Sexual Orientation Straight 05/09/2021 7: 19 PM PERSONNEL SCHEDULER documented as of this encounter Nursing Notes * Kinga Burns RN - 04/14/2024 2:47 PM CDT Received patient's faxed lab results - redirected to GI Dept fax [phone]. Sent to HIM for scanning to chart. [...] Anderson LPN - 04/14/2024 8:30 AM CDT Probation And Parole Officer spoke to Sindy aragon at [facility] stated that the result of the Fecal Calprotectin was 75. Sindy will be faxing result over to fax at [phone] as well. Routing to provider for review. * Teri Ruth, BINGO MANAGER, LINE CREW SUPERVISOR - 04/11/2024 2:18 PM CDT Noted. Thank you. * Sindy Anderson LPN - 04/11/2024 2:01 PM CDT Probation And Parole Officer called [facility] at to check on status of Fecal Calprotectin. Probation And Parole Officer wastold that sample was submitted and is still pending at this time. ONNEL SCHEDULER * Beth Nichols RN - 04/10/2024 2:17 PM CDT Pt notified and verbalized understanding of below. Pt will submit sample OSMANY. * Marni Smith RN - 04/10/2024 9:09 AM CDT Fecal Calprotectin result not received. RN contacted [facility] who states that they never received an order for this, therefore, it was never run. [facility] order for fecal calprotectin filled out and signed by provider. Faxed to [phone], confirmation was received. RN contacted lab, they confirmed they did have the order. LMTCB with the patient. Patient needs to return to the lab to fiber picker the kit to provide the stool sample for the missing fecal calprotectin. * Marni Smith RN - 04/08/2024 1:03 PM CDT Remainder of lab results received. Placed in KING [employer] inbox. * Marni Smith RN - 04/08/2024 12:57 PM CDT Stool study results received via fax to [place]. Placed in [employer] inbox for review. Still waiting for other labs. * Teri Ruth APRN, SIERRA - 04/01/2024 5:19 PM CDT Noted. Thank you. * Sindy Anderson LPN - 04/01/2024 2:42 PM CDT [facility] filled out for labs to be completed per provider requested and signed by Dr. Lopez due to provider is not in person today. Patient requested lab orders to be faxed to [facility] lab. [facility] is faxed to [phone]. Received confirmation of faxed received on 04/01/24 at 2:44 pm. Patient is called and notified of fax has been sent for labs to patient preferred lab. Patient acknowledged understanding and had no further questions at this time. documented in this encounter Plan of Treatment Upcoming Encounters Date Type Department Care Team (Late st Contact Info) Description 08/04/2024 7:50 AM PERSONNEL SCHEDULER Telemedicine Digestive Care at [facility] at [facility] 6500 [facility] 6500 [place] [address] Teri Ruth, BINGO MANAGER, LINE CREW SUPERVISOR [address] [place] [address] documented as of this encounter Visit Diagnoses Not on filedocumented in this encounter Care Teams Cook Helper Preserves Relationship Specialty Start Date End Date Sheeba Castillo, RUDY, LINE CREW SUPERVISOR [address] [place] [address] PCP - General Nurse Practitioner 07/20/16 documented as of this encounter
--- OUTSIDE RECORDS SUMMARY | 2024-05-26 07:21 | XMS_ITS | Encounter Summary ---
Author Organization [employer] Address [address] [place] [address] Care Team Providers Care Director Of Physical Education Name Role Phone Sheeba Castillo APRN, CNP Primary Care Provid er Encounter Details Date Type Department Care Team (Late st Contact Info) Description 07/22/2016 Correspondence [facility] [address] [place], [place] [phone] Fernanda Lancaster PA-C [address] [place] [address] RETURN TO WORK AUTH Social History Tobacco Use Types Packs/Day Years Used Date Smoking Tobacco: Former Cigarettes 0.3 15 1 06/25/1999 - 04/25/2015 Smokeless Tobacco: Never Alcohol Use Standard Drinks/Week Comments Yes 0 (1 standard drink = 0.6 oz pur e alcohol) rarely Sex and Gender Information Value Date Recorded Sex Assigned at Female 05/09/2021 7:19 PM MANAGER OF SUPPLY CHAIN Gender Identity Female 05/09/2021 7:19 PM MANAGER OF SUPPLY CHAIN Sexual Orientation Straight 05/09/2021 7: 19 PM MANAGER OF SUPPLY CHAIN documented as of this encounter Plan of Treatment Upcoming Encounters Date Type Department Care Team (Late st Contact Info) Description 08/04/2024 7:50 AM MANAGER OF SUPPLY CHAIN Telemedicine Digestive Care at [facility] at [address] [place], [place] [address] Teri Ruth APRN, RE EXAMINER [address] [place] [phone] documented as of this encounter Visit Diagnoses Not on filedocumented in this encounter Care Teams Director Of Physical Education Relationship Specialty Start Date End Date Sheeba Castillo APRN, RE EXAMINER [address] [place] [address] PCP - General Nurse Practitioner 07/20/16 documented as of this encounter
--- OUTSIDE RECORDS SUMMARY | 2024-05-26 07:21 | XMS_ITS | Encounter Summary ---
Author Organization [employer] Address [address] [place] [address] Care Team Providers Care Stretching Machine Tender Frame Name Role Phone Sheeba Castillo APRN, CNP Primary Care Provid er Encounter Details Date Type Department Care Team (Late st Contact Info) Description 07/22/2016 Correspondence [facility] [address] [place], [place] [phone] Fernanda Lancaster PA-C [address] [place] [address] RETURN TO WORK AUTH Social History Tobacco Use Types Packs/Day Years Used Date Smoking Tobacco: Former Cigarettes 0.3 15 1 06/25/1999 - 04/25/2015 Smokeless Tobacco: Never Alcohol Use Standard Drinks/Week Comments Yes 0 (1 standard drink = 0.6 oz pur e alcohol) rarely Sex and Gender Information Value Date Recorded Sex Assigned at Female 05/09/2021 7:19 PM STAVE PLANER TENDER Gender Identity Female 05/09/2021 7:19 PM STAVE PLANER TENDER Sexual Orientation Straight 05/09/2021 7: 19 PM STAVE PLANER TENDER documented as of this encounter Plan of Treatment Upcoming Encounters Date Type Department Care Team (Late st Contact Info) Description 08/04/2024 7:50 AM STAVE PLANER TENDER Telemedicine Digestive Care at [facility] at [address] [place], [place] [address] Teri Ruth APRN, CRYSTALLIZER OPERATOR [address] [place] [phone] documented as of this encounter Visit Diagnoses Not on filedocumented in this encounter Care Teams Stretching Machine Tender Frame Relationship Specialty Start Date End Date Sheeba Castillo APRN, CRYSTALLIZER OPERATOR [address] [place] [address] PCP - General Nurse Practitioner 07/20/16 documented as of this encounter
--- OUTSIDE RECORDS SUMMARY | 2024-05-26 07:21 | XMS_ITS | Encounter Summary ---
Author Organization [employer] Address [address] [place] [address] Care Team Providers Care Pin Chaser Name Role Phone Sheeba Castillo APRN, CNP Primary Care Provid er Encounter Details Date Type Department Care Team (Late st Contact Info) Description 05/09/2024 E-Visit Digestive Care at [facility] at [address] [place], [place] [phone] Teri Ruth APRN, SIERRA [address] [place] [address] Social History Tobacco Use Types Packs/Day [...] Sex Assigned at Female 05/09/2021 7:19 PM PLATE STRAIGHTENER Gender Identity Female 05/09/2021 7:19 PM PLATE STRAIGHTENER Sexual Orientation Straight 05/09/2021 7: 19 PM PLATE STRAIGHTENER documented as of this encounter Plan of Treatment Upcoming Encounters Date Type Department Care Team (Late st Contact Info) Description 08/04/2024 7:50 AM PLATE STRAIGHTENER Telemedicine Digestive Care at [facility] at [facility] 6500 [facility] 6[address] [facility]. [place], [place] [phone] Teri Ruth APRN, ONLINE CONTENT COORDINATOR [address] [place], [place] [phone] documented as of this encounter Visit Diagnoses Not on filedocumented in this encounter Care Teams Pin Chaser Relationship Specialty Start Date End Date Sheeba Castillo APRN, ONLINE CONTENT COORDINATOR [address] [place] [phone] PCP - General Nurse Practitioner 07/20/16 documented as of this encounter
--- OUTSIDE RECORDS SUMMARY | 2024-05-26 07:21 | XMS_ITS | Encounter Summary ---
Author Organization [employer] Address [address] [place] [address] Care Team Providers Care Automobile Damage Field Appraiser Name Role Phone Sheeba Castillo APRN, CNP Primary Care Provid er Reason for Visit * Reason Comments Refill predniSONE (DELTASON E) 10 MG tablet [Pharmacy Med Name: predniSONE Oral Tablet 10 MG] Encounter Details Date Type Department Care Team (Late st Contact Info) Description 05/07/2024 Refill Digestive Care at [facility] at [facility] [address] [place] [address]. [place] [address] Oleg Spain APRN, SIERRA [address] [place] [address] Refill (predniSONE (DELTASONE) 10 MG tablet [...] Sex Assigned at Female 05/09/2021 7:19 PM KENNEL MANAGER Gender Identity Female 05/09/2021 7:19 PM KENNEL MANAGER Sexual Orientation Straight 05/09/2021 7: 19 PM KENNEL MANAGER documented as of this encounter Nursing [...] ELLIE VARGHESE) [employer] Embedded Refills, Reference: [id number], 05/07/2024 10:47:05 AM KENNEL MANAGER, [place]: [facility] ([id number]) EL MANAGER documented in this encounter Plan of Treatment Upcoming Encounters Date Type Department Care Team (Late st Contact Info) Description 08/04/2024 7:50 AM KENNEL MANAGER Telemedicine Digestive Care at [facility] at [facility] 6500 [facility] [address] [place] [address]. [place], [place] [address] Oleg Spain APRN, CASH ANALYST [address] [place], [place] [phone] documented as of this encounter Visit Diagnoses Not on filedocumented in this encounter Care Teams Automobile Damage Field Appraiser Relationship Specialty Start Date End Date Sheeba Castillo APRN, CASH ANALYST [address] [place] [address] PCP - General Nurse Practitioner 07/20/16 documented as of this encounter
--- OUTSIDE RECORDS SUMMARY | 2024-05-26 07:21 | XMS_ITS | Encounter Summary ---
Author Organization [employer] Address [address] [place] [address] Care Team Providers Care Calender Operator Name Role Phone Sheeba Castillo APRN, CNP Primary Care Provid er Encounter Details Date Type Department Care Team (Latest Contact Info) Description 04/18/2024 Orders Only HIM DEPARTMENT Provider, [place] Angel[place] [address] Social History Tobacco Use Types Packs/Day Years [...] Sex Assigned at Female 05/09/2021 7:19 PM MATERIALS SCHEDULER Gender Identity Female 05/09/2021 7:19 PM MATERIALS SCHEDULER Sexual Orientation Straight 05/09/2021 7: 19 PM MATERIALS SCHEDULER documented as of this encounter Plan of Treatment Upcoming Encounters Date Type Department Care Team (Late st Contact Info) Description 08/04/2024 7:50 AM MATERIALS SCHEDULER Telemedicine Digestive Care at at [address] 6[address] [facility] [place] [address] Teri Ruth, SIERRA GRANT [address] [place] [address] documented as of this encounter Procedures Procedure Name Priority Date/Time Associated Diagnosis Comments LABORATORY REPORT 04/18/2024 documented in this encounter Results * LABORATORY REPORT (04/18/2024) Interface Provider MD DUMMY/OTHER/AR documented in this encounter Visit Diagnoses Not on filedocumented in this encounter Care Teams Calender Operator Relationship Specialty Start Date End Date Sheeba Castillo, SIERRA GRANT [address] [place] [address] PCP - General Nurse Practitioner 07/20/16 documented as of this encounter
--- OUTSIDE RECORDS SUMMARY | 2024-05-26 07:21 | XMS_ITS | Encounter Summary ---
Author Organization [employer] Address [address] [place] [address] Care Team Providers Care Concert Singer Name Role Phone Sheeba Castillo APRN, CNP Primary Care Provid er Encounter Details Date Type Department Care Team (Late st Contact Info) Description 05/12/2024 Telephone Digestive Care at [facility] [place] [address] [address] [address] [place] [address] Teri Ruth APRN, CNP [address] [place] [address] Social History Tobacco Use Types [...] Sex Assigned at Female 05/09/2021 7:19 PM SPICE ROOM WORKER Gender Identity Female 05/09/2021 7:19 PM SPICE ROOM WORKER Sexual Orientation Straight 05/09/2021 7: 19 PM SPICE ROOM WORKER documented as of this encounter Nursing Notes * Sindy Anderson, TEETEE - 05/12/2024 1:50 PM CST [facility] for vedolizumab quantitation with antibodies lab filled out and signed by Dr. Mariia Holguin is faxed to [place] lab at [phone]. Received fax confirmation back on 05/12/24 at 2:22pm E ROOM WORKER documented in this encounter Plan of Treatment Upcoming Encounters Date Type Department Care Team (Late st Contact Info) Description 08/04/2024 7:50 AM SPICE ROOM WORKER Telemedicine Digestive Care at [facility] at [address] [place], [place] [phone] Teri Ruth APRN, CERTIFIED LACTATION COUNSELOR [address] [place] [phone] documented as of this encounter Visit Diagnoses Not on filedocumented in this encounter Care Teams Concert Singer Relationship Specialty Start Date End Date Sheeba Castillo, BELT AND LINK ASSEMBLY SUPERVISOR, CERTIFIED LACTATION COUNSELOR [address] [place] [address] PCP - General Nurse Practitioner 07/20/16 documented as of this encounter
--- OUTSIDE RECORDS SUMMARY | 2024-05-26 07:21 | XMS_ITS | Encounter Summary ---
Author Organization [email or web address] Address [address] [place] [address] Care Team Providers Care Supervisor Line Department Name Role Phone Sheeba Castillo APRN, CNP Primary Care Provid er Encounter Details Date Type Department Care Team (Late st Contact Info) Description 04/23/2024 Notes/Orders Digestive Care at [facility] [address] [address] Мария Rasmussen MD [address] [facility] [address] [place] [address] Social History Tobacco Use Types [...] Sex Assigned at Female 05/09/2021 7:19 PM CHILD DEVELOPMENT ASSISTANT Gender Identity Female 05/09/2021 7:19 PM CHILD DEVELOPMENT ASSISTANT Sexual Orientation Straight 05/09/2021 7: 19 PM CHILD DEVELOPMENT ASSISTANT documented as of this encounter Plan of Treatment Upcoming Encounters Date Type Department Care Team (Late st Contact Info) Description 08/04/2024 7:50 AM CHILD DEVELOPMENT ASSISTANT Telemedicine Digestive Care at [facility] at [facility] [place] [facility] [address] [facility] 6500 [facility]. [place], [place] [address] Teri Ruth APRN, STRUCTURAL STEEL ERECTION SUPERVISOR [address] [place], [place] [phone] documented as of this encounter Visit Diagnoses Not on filedocumented in this encounter Care Teams Supervisor Line Department Relationship Specialty Start Date End Date Sheeba Castillo APRN, STRUCTURAL STEEL ERECTION SUPERVISOR [address] [place] [address] PCP - General Nurse Practitioner 07/20/16 documented as of this encounter
--- OUTSIDE RECORDS SUMMARY | 2024-05-26 07:21 | XMS_ITS | Clinical Summary ---
Author Organization [facility] Address [address] [place] [address] Care Team Providers Care Taker Off Braker Machine Name Role Phone Sheeba Castillo APRN, CNP Primary Care Provid er Source Comments You are receiving this document as you are listed as the primary care provider,follow-up provider, or the patient has been referred to you for consultation.This is in compliance with the Medicare and[facility] EHR Incentive Program,which states Providers who transition [...] infusions every 8 weeks. 0 03/10/2022 Active predniSONE (DELTASONE) 10 MG tablet Take 4 Tablets (40 mg) by mouth daily for 14 days, THEN 3 Tablets (30 mg) daily for 7 days, THEN 2 Tablets (20 mg) daily for 7 days, THEN 1.5 Tablets (15 mg) daily for 7 days, THEN 1 Tablet (10 mg) daily for 7 days, THEN 0.5 Tablets (5 mg) daily for 7 days. 112 Tablet 05/14/2024 07/02/19 25 Active hyoscyamine (OSCIMIN) 0.125 MG sublingual tabletIndications :Irritable bowel syndrome, unspecified type PLACE 2 TABLETS (0.25 MG) UNDER TONGUE EVERY 4 HOURS NEEDED FOR CRAMPING. 60 Tablet 1 05/15/2024 Active hyoscyamine (LEVSIN/SL) 0.125 MG sublingual tabletIndications :Irritable bowel syndrome, unspecified type PLACE 2 TABLETS (0.25 MG) UNDER TONGUE EVERY 4 HOURS NEEDED FOR CRAMPING. 60 Tablet 2 07/13/2023 05/15/20 24 Discontinued predniSONE (DELTASONE) 10 MG tablet Take 3 Tablets (30 mg) by mouth daily for 14 days, THEN 2 Tablets (20 mg) daily for 7 days, THEN 1.5 Tablets (15 mg) daily for 7 days, THEN 1 Tablet (10 mg) daily for 7 days, THEN 0.5 Tablets (5 mg) daily for 7 days. 77 Tablet 04/14/2024 05/14/20 24 Discontinued polyethylene glycol-electrolyt e (GO-LYTELY) 236 g oral [...] genital symptoms 12/19/200404/25 Overview (02/14/2017): LW Onset: [id number] ; Pelvic Pain Female Irritable bowel syndrome 11/29/2002 Encounters Date Type Department Care Team Description 05/15/2024 Refill Digestive Care at [facility] at [address] [place] [address] Teri Ruth APRN, SIERRA Refill (OSCIMIN 0.125 MG sublingual tablet [Pharmacy Med Name: OSCIMIN 0.125 MG SUBL 0.125 Tablet]) 05/12/2024 Telephone Digestive Care at [place] [address] [address] [address] [place] [address] Teri Ruth APRN, CLINICAL DOCUMENTATION SPECIALIST 05/09/2024 E-Visit Digestive Care at [facility] at [address] [place] [address] Teri Ruth APRN, CNP 05/08/2024 2:10 PM DRUM LOADER AND UNLOADER E-Visit Digestive Care at [address] [address] Eusebio Haines MD Dx: Left sided colitis with rectal bleeding (HRC) (Primary Dx) 05/08/2024 2:05 PM DRUM LOADER AND UNLOADER E-Visit Digestive Care at [facility] at [address] [place] [address] Teri Ruth APRN, CLINICAL DOCUMENTATION SPECIALIST Chief Comp: QUESTIONS, GENERAL 05/07/2024 Orders Only HIM DEPARTMENT Provider, MD Angelica 05/07/2024 Refill Digestive Care at [facility] at [address] [place] [address] Teri Ruth APRN, CLINICAL DOCUMENTATION SPECIALIST Refill (predniSONE (DELTASONE) 10 MG tablet [Pharmacy Med Name: predniSONE Oral Tablet 10 MG]) 04/28/2024 9:48 AM DRUM LOADER AND UNLOADER - 04/28/2024 11:59 PM DRUM LOADER AND UNLOADER Hospital Encounter Gastroenterology Procedures at [place] [address] [address] [address] [place] [address] Teri Ruth APRN, CLINICAL DOCUMENTATION SPECIALIST Мария Rasmussen MD Left sided colitis with rectal bleeding (HRC) Discharge Disposition: Home 04/23/2024 Notes/Orders Digestive Care at [address] [address] Мария Rasmussen MD 04/23/2024 E-Visit Endoscopy at [facility] at [address] [place] [address] Mychart, Generic Provider 04/23/2024 Telephone Digestive Care at [address] [address] Teri Ruth APRN, CLINICAL DOCUMENTATION SPECIALIST 04/18/2024 Orders Only HIM DEPARTMENT Provider, MD Angelica 04/11/2024 Orders Only HIM DEPARTMENT Provider, MD Angelica 04/01/2024 Telephone Digestive Care at [address] [address] Teri Ruth, GARMENT LINER, CLINICAL DOCUMENTATION SPECIALIST Provider Orders; LAB RESULTS 03/30/2024 9:00 PM CDT E-Visit Digestive Care at [facility] at [address] [place] [address] Teri Ruth, GARMENT LINER, CLINICAL DOCUMENTATION SPECIALIST Dx: Left sided colitis with rectal bleeding (HRC) (Primary Dx) from Last 3 Months Immunizations Name Administration Dates Next Due Flu Vac Preserv Free (3+yrs) 03/04/2012, 03/10/2011,03/10/2010,2008,04/17/2008,04/08/2008,04/03/2007,1 H1n1 Laiv Medimmune 2-49 Yr (Intranasal) 04/13/2009 H1n1 Miv Sanofi 3+ Yr (Injected) 06/09/2013 HepB Adult (Engerix-B, 20+ y rs, 3 dose series) 02/08/2006,01/02/2002 HepB, Unspecified Formulation 08/09/2001 Influenza IIV4 (Quadrivalent ) 0.5mL (48402) 03/31/2019,03/22/2018,03/21/2018,2016,03/23/2016,03/24/2015,03/23/2014 PCV13 (Prevnar) 05/09/2021(Deferred: Patient Ref used) PCV20 ([id number]) 03/10/2022(Deferred: Patient Refused - Patient will complete [...] Sex Assigned at Female 05/09/2021 7:19 PM DRUM LOADER AND UNLOADER Gender Identity Female 05/09/2021 7:19 PM DRUM LOADER AND UNLOADER Sexual Orientation Straight 05/09/2021 7: 19 PM DRUM LOADER AND UNLOADER Last Filed Vital Signs Vital Sign Reading Time Taken Comments Blood Pressure 108/63 04/28/2024 11:25 AM DRUM LOADER AND UNLOADER Pulse 79 04/28/2024 11:25 AM DRUM LOADER AND UNLOADER Temperature 36.8 C (98.2 F) 05/12/2022 2:52 PM DRUM LOADER AND UNLOADER Respiratory Rate 16 04/28/2024 11:25 AM DRUM LOADER AND UNLOADER Oxygen Saturation 95% 04/28/2024 11:25 AM DRUM LOADER AND UNLOADER Inhaled Oxygen Concentration - - Weight 84.8 kg (187 lb) 04/28/2024 9:53 AM DRUM LOADER AND UNLOADER Height 167.6 cm (5' 6) 04/28/2024 9:53 AM DRUM LOADER AND UNLOADER Body Mass Index 30.18 04/28/2024 9:53 AM DRUM LOADER AND UNLOADER Plan of Treatment Upcoming Encounters Date Type Department Care Team (Late st Contact Info) Description 08/04/2024 7:50 AM DRUM LOADER AND UNLOADER Telemedicine Digestive Care at [facility] at [facility] [address] [facility]. [place], [place] [id number] Teri uRth, GARMENT LINER, CLINICAL DOCUMENTATION SPECIALIST [address] [place] [address] Health Maintenance Due Date Last Done Comments [...] on patient's age to complete this topic Infant RSV Aged Out No longer eligi ble based on patient's age to complete this topic MCV4 Aged Out No longer eligi ble based on patient's age to complete this topic Procedures Procedure Name Priority Date/Time Associated Diagnosis Comments LABORATORY REPORT 05/07/2024 SURGICAL PATHOLOGY, GI Routine 04/28/2024 11:03 AM DRUM LOADER AND UNLOADER Left sided colitis with rectal bleeding (HRC) COLONOSCOPY SCREENING Routine 04/28/2024 10:22 AM DRUM LOADER AND UNLOADER Left sided colitis with rectal bleeding (HRC) [...] time period is included. Interface Provider MD ACKERMAN/OTHER/AR * Surgical Path - GI (04/28/2024 11:03 AM DRUM LOADER AND UNLOADER) Case Report Surgical Pathology Case: [id number] Authorizing Provider: Мария Rasmussen MD Collected: 04/28/2024 1103 Ordering Location: Gastroenterology Received: 04/28/2024 114[address] Procedures at [address] Pathologist: Maxx Khan MD Specimens: A) - Colon, cecum, ascending, transverse B) - Colon, descending, sigmoid C) - Colon, rectum D) - Colon, ascending 05/15/2024 8:03 AM DRUM LOADER AND UNLOADER [facility] FINAL DIAGNOSIS A. Colon, cecum, ascending, transverse, biopsy: Negative for active colitis Negative for dysplasia B. Colon, descending, sigmoid, biopsy: Negative for active colitis Negative for dysplasia C. Colon, rectum, biopsy: Moderate chronic active colitis Indefinite for dysplasia D. Colon, ascending, polypectomy: Tubular adenoma Part C reviewed by RW. 05/15/2024 8:03 AM DRUM LOADER AND UNLOADER [facility] Clinical Information Left sided colitis with rectal bleeding (HRC) 05/15/2024 8:03 AM DRUM LOADER AND UNLOADER [facility] Microscopic Description Microscopic examination is performed. 05/15/2024 8:03 AM DRUM LOADER AND UNLOADER [facility] Gross Description A: The specimen is received in formalin and labeled with the patient's name and Colon, cecum, ascending, transverse. The specimen consists of multiple dawn-white irregular soft tissue fragments, ranging from 0.1 cm to 0.3 cm. The specimen is filtered and entirely submitted in one cassette. B: The specimen is received in formalin and labeled with the patient's name and Colon, descending, sigmoid. The specimen consists of multiple dawn-white irregular soft tissue fragments, averaging 0.2 cm. The specimen is filtered and entirely submitted in one cassette. C: The specimen is received in formalin and labeled with the patient's name and Colon, rectum. The specimen consists of multiple dawn-white irregular soft tissue fragments, averaging 0.2 cm. The specimen is filtered and entirely submitted in one cassette. D: The specimen is received in formalin and labeled with the patient's name and Colon, ascending. The specimen consists of a 0.4 cm dawn-white irregular shaped soft tissue fragment. The specimen is filtered and entirely submitted in one cassette. AW 05/15/2024 8:03 AM DRUM LOADER AND UNLOADER [facility] Embedded Images 05/15/2024 8:03 AM DRUM LOADER AND UNLOADER [facility] Tissue COLON STRUCTURE / Unknown 04/28/2024 11:03 AM DRUM LOADER AND UNLOADER 04/28/2024 11:46 AM DRUM LOADER AND UNLOADER Tissue specimen (specimen) COLON STRUCTURE / Unknown 04/28/2024 11:03 AM DRUM LOADER AND UNLOADER 04/28/2024 11:46 AM DRUM LOADER AND UNLOADER Tissue specimen (specimen) COLON STRUCTURE / Unknown 04/28/2024 11:03 AM DRUM LOADER AND UNLOADER 04/28/2024 11:46 AM DRUM LOADER AND UNLOADER Tissue specimen (specimen) COLON STRUCTURE / Unknown 04/28/2024 11:03 AM DRUM LOADER AND UNLOADER 04/28/2024 11:46 AM DRUM LOADER AND UNLOADER Мария Rasmussen MD LAB PATHOLOGY Performing Organization Address City/State/[facility] Co de Phone Number [facility] [address] * Colonoscopy Screening (04/28/2024 10:22 AM DRUM LOADER AND UNLOADER) Anatomical Region Laterality Modality Other 04/28/2024 10:2 2 AM DRUM LOADER AND UNLOADER Narrative 04/28/2024 10:22 AM DRUM LOADER AND UNLOADER Patient Name: Idania Galeana Procedure Date: 04/28/2024 [...] and oxygen saturations were monitored continuously. The [id number] was introduced through the anus and advanced [...] from the initial medication administration until the portfolio architect assists with initial maneuvers (biopsy / polypectomy [...] GI clinic. Procedure Code(s): --- Professional --- 52737, Colonoscopy, flexible; with biopsy, single or multiple G0500, Moderate sedation services provided by the same physician or other qualified health client care manager performing a gastrointestinal endoscopic service that sedation supports, requiring the presence of an independent trained observer to assist in the monitoring of the patient's level of consciousness and physiological status; initial 15 minutes of intra-service time; patient age 5 years or older (additional time may be reported with 89518, as appropriate) Diagnosis Code(s): --- Professional --- D12.2, Benign neoplasm of ascending colon K63.89, Other specified diseases of intestine 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 All rights reserved. The codes documented in this report are preliminary and upon lens engraver review may be revised to meet current [...] and oxygen saturations were monitored continuously. The [id number] was introduced through the anus and advanced [...] from the initial medication administration until the portfolio architect assists with initial maneuvers (biopsy / polypectomy [...] GI clinic. Procedure Code(s): --- Professional --- 33365, Colonoscopy, flexible; with biopsy, single or multiple G0500, Moderate sedation services provided by the same physician or other qualified health client care manager performing a gastrointestinal endoscopic service that sedation supports, requiring the presence of an independent trained observer to assist in the monitoring of the patient's level of consciousness and physiological status; initial 15 minutes of intra-service time; patient age 5 years or older (additional time may be reported with 27789, as appropriate) Diagnosis Code(s): --- Professional --- D12.2, Benign neoplasm of ascending colon K63.89, Other specified diseases of intestine 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 All rights reserved. The codes documented in this report are preliminary and upon lens engraver review may be revised to meet current compliance requirements. Мария Rasmussen MD 04/28/2024 11:05:58 AM This document has been electronically signed. Number of Addenda: 0 Note Initiated On: 04/28/2024 10:22 AM Endoscopy Report Teri Ruth GARMENT LINER, CLINICAL DOCUMENTATION SPECIALIST ET GI PROCEDU RE ORDERABLES * Lipid Panel and Direct LDL(If Needed) (04/08/2020 3:56 PM CDT) Cholesterol 175 0 - 199 mg/dL 04/08/2020 4:39 PM T [facility] Triglyceride 108 <=149 mg/dL 04/08/2020 4:39 PM T [facility] HDL Cholesterol 59 >=40 mg/dL 0 4:39 PM [facility] LDL, Calculated 94 <130 mg/dL 0 4:39 PM [facility] Non HDL Chol, Calculated 116 mg/dL 04/08/2020 4:39 PM [facility] Cholesterol/HDL Ratio 3.0 04/08/2020 4:39 PM [facility] Hours Fasting 4 04/08/2020 4:39 PM [facility] Blood Venipuncture / Unknown 04/08/2020 3:56 PM CDT 04/08/2020 3:56 PM CDT Idania Andrade MD LAB_1 [facility] [address] [place] [address] [phone] * Hgb A1C (12/19/2018 4:30 PM CDT) Hemoglobin A1C 5.5 <=5.6 % 12/20/2018 9:23 AM CDT [facility] Blood Venipuncture / Unknown 12/19/2018 4:30 PM CDT 12/19/2018 4:30 PM CDT Idania nAdrade MD LAB_1 Performing Organization Address [facility] Co de Phone Number [facility] [address] * MM Mammogram Screening Bilat W [...] CDT FINAL GYNECOLOGICAL CYTOLOGY REPORT Pathology #: [id number] Date Obtained: 12/17/2017 Date Received: 12/18/2017 INTERPRETATION/RESULTS: [...] and false-negative reports may occur[place] [address] Idania Andrade MD LAB_1 Performing Organization Address [facility] de Phone Number PN SOFT [address] [place] [address] * HIV ANTIBODY (03/24/2015 11:39 AM CDT) Pathologist [facility] HIV 1/HIV 2 Non-React Non-Reacti ve HP CONVERSION 03/24/2015 11:3 9 AM CDT 03/24/2015 2:53 PM CDT Narrative HP CONVERSION - 03/25/2015 12:01 AM CDT Performed at [place] [address] Kinga Pickett APRN, CNP LAB_1 Performing Organization Address [facility] de Phone Number HP CONVERSION * Hepatitis C Antibody, with Reflex (03/24/2015 11:39 AM CDT) Pathologist [facility] Hepatitis C Antibody Non-React Non-Reacti ve HP CONVERSION 03/24/2015 11:3 9 AM CDT 03/24/2015 2:53 PM CDT Narrative HP CONVERSION - 03/24/2015 9:00 PM CDT Performed at [address] [address] Kinga Pickett APRN, CNP LAB_1 Performing Organization Address [facility] de Phone Number HP CONVERSION from [...] 1:10 PM 07/12/2016 9:07 PM Care Teams Taker Off Braker Machine Relationship Specialty Start Date End Date Sheeba Castillo, GARMENT LINER, CLINICAL DOCUMENTATION SPECIALIST [address] [place] [address] PCP - General Nurse Practitioner 07/20/16
--- OUTSIDE RECORDS SUMMARY | 2024-05-26 07:21 | XMS_ITS | Encounter Summary ---
Author Organization [employer] Address [address] [place] [address] Care Team Providers Care Production Scheduler Name Role Phone Sheeba Castillo APRN, CNP Primary Care Provid er Reason for Visit * Reason Comments Refill OSCIMIN 0.125 MG sub lingual tablet [Pharmacy Med Name: OSCIMIN 0.125 MG SUBL 0.125 Tablet] Encounter Details Date Type Department Care Team (Late st Contact Info) Description 05/15/2024 Refill Digestive Care at [facility] at [facility] [address] [place], [place] [address] Teri Spain APRN, VIDEO COORDINATOR [address] [place] [phone] Refill (OSCIMIN 0.125 MG sublingual tablet [Pharmacy Med Name: OSCIMIN 0.125 MG SUBL 0.125 Tablet]) Social History Tobacco Use Types Packs/Day Years [...] Sex Assigned at Female 05/09/2021 7:19 PM TEMPORARY ADMINISTRATIVE ASSISTANT Gender Identity Female 05/09/2021 7:19 PM TEMPORARY ADMINISTRATIVE ASSISTANT Sexual Orientation Straight 05/09/2021 7: 19 PM TEMPORARY ADMINISTRATIVE ASSISTANT documented as of this encounter Nursing Notes * Bryan High Xrwcomm - 05/15/2024 10:12 AM CST OSCIMIN 0.125 MG sublingual tablet [Pharmacy Med Name: OSCIMIN 0.125 MG SUBL 0.125 Tablet] Miscellaneous - 12 Month Visit 1 -> Refill x 3 months (until due for an office visit) Last qualifying visit: 05/21/2023 (with TERI SPAIN) Next scheduled visit: 08/04/2024 (with TERI SPAIN) Last ordered by ELLIE VARGHESE A: 07/13/2023 (307 days ago) QTY: 60, Refills: 2, Sig: place 2 tablets(0.25 mg) under tongue every 4 hours as needed for cramping. (unchanged) [employer] Embedded Refills, Reference: [id number], 05/15/2024 10:12:45 AM TEMPORARY ADMINISTRATIVE ASSISTANT, Pool: GI NURSING-PN ([id number]) ORARY ADMINISTRATIVE ASSISTANT documented in this encounter Plan of Treatment Upcoming Encounters Date Type Department Care Team (Late st Contact Info) Description 08/04/2024 7:50 AM TEMPORARY ADMINISTRATIVE ASSISTANT Telemedicine Digestive Care at [facility] at [facility] 6[address] [facility] 6500 [facility]. [place], [place] [address] Teri Spain APRN, VIDEO COORDINATOR [address] [place], [place] [phone] documented as of this encounter Visit Diagnoses Diagnosis Irritable bowel syndrome, unspecified type documented in this encounter Care Teams Production Scheduler Relationship Specialty Start Date End Date Sheeba Castillo APRN, VIDEO COORDINATOR [address] [place] [id number] PCP - General Nurse Practitioner 07/20/16 documented as of this encounter
--- OUTSIDE RECORDS SUMMARY | 2024-05-26 07:21 | XMS_ITS | Encounter Summary ---
Author Organization [facility] [employer] Address [address] [place] [address] Care Team Providers Care Business Analyst Sales Operations Name Role Phone Sheeba Castillo APRN, SIERRA Primary Care Provid er Reason for Visit * Reason Comments QUESTIONS, GENERAL Entered automaticall y based on patient selection in [employer]. Encounter Details Date Type Department Care Team (Late st Contact Info) Description 05/08/2024 2:10 PM SOLAR SALES REP E-Visit Digestive Care at [facility] [address] [phone] Eusebio Haines MD [address] [place] [address] Dx: Left sided colitis with [...] Assigned at Female 05/09/2021 7:19 PM SOLAR SALES REP Gender Identity Female 05/09/2021 7:19 PM SOLAR SALES REP Sexual Orientation Straight 05/09/2021 7: 19 PM SOLAR SALES REP documented as of this encounter Nursing Notes * Eusebio Haines MD - 05/08/2024 3:05 PM CST Please see recent communication thread via the patient's [employer] account. It appears she is having a flare of inflammatory bowel disease but need to rule out other potentialmimickers. Detailed response sent to the patient with recommendations on the next steps which include blood tests and stool tests. Please contact the patient and help arrange to get these tests I entered today into epic completed.Thanks. R SALES REP documented in this encounter Plan of Treatment Upcoming Encounters Date Type Department Care Team (Late st Contact Info) Description 08/04/2024 7:50 AM SOLAR SALES REP Telemedicine Digestive Care at [facility] at [address] [place], [place] [phone] Teri Ruth, LAUNDRY MACHINE MECHANIC, SKETCHER [address] [place], [place] [phone] Scheduled Orders Name Type Priority Associated Diagnoses [...] type documented in this encounter Care Teams Business Analyst Sales Operations Relationship Specialty Start Date End Date Sheeba Castillo, LAUNDRY MACHINE MECHANIC, SKETCHER [address] [place] [address] PCP - General Nurse Practitioner 07/20/16 documented as of this encounter
--- OUTSIDE RECORDS SUMMARY | 2024-05-26 07:21 | XMS_ITS | Encounter Summary ---
Author Organization [employer]) Address [address] [place] [address] Care Team Providers Care Crm Campaign Manager Name Role Phone Sheeba Castillo APRN, CNP Primary Care Provid er Reason for Referral * Procedure/Equipment (Routine) - Closed Specialty Diagnoses / Procedures Referred By Contac t Referred To Contact Diagnoses Left sided colitis with rectal bleeding (HRC) Procedures Colonoscopy Screening Teri Ruth APRN, CNP [address] [place] [address] Referral ID Status Reason Start Date Expiration Date Visits Re quested Visits Authorized [id number] Closed 05/21/2023 05/21/2025 1 1 BREAKER Reason for Visit * Procedure/Equipment (Routine) - Closed Specialty Diagnoses / Procedures Referred By Contac t Referred To Contact Diagnoses Left sided colitis with rectal bleeding (HRC) Procedures Colonoscopy Screening Teri Ruth APRN, CNP [address] [place] [address] Referral ID Status Reason Start Date Expiration Date Visits Re quested Visits Authorized [id number] Closed 05/21/2023 05/21/2025 1 1 Encounter Details Date Type Department Care Team (Late st Contact Info) Description 04/28/2024 9:48 AM ROCK BREAKER - 04/28/2024 11:59 PM ROCK BREAKER Hospital Encounter Gastroenterology Procedures at [facility] [address] [address] Teri Ruth, WEB CONTENT PRODUCER, DATA DEVELOPER [address] [employer] [place], [place] [phone] Мария Rasmussen MD [address] [facility] [address] [place], [place] [phone] Left sided colitis with rectal bleeding (HRC) Discharge Disposition: Home Social History Tobacco Use Types Packs/Day Years [...] Sex Assigned at Female 05/09/2021 7:19 PM ROCK BREAKER Gender Identity Female 05/09/2021 7:19 PM ROCK BREAKER Sexual Orientation Straight 05/09/2021 7: 19 PM ROCK BREAKER documented as of this encounter Last Filed Vital Signs Vital Sign Reading Time Taken Comments Blood Pressure 108/63 04/28/2024 11:25 AM ROCK BREAKER Pulse 79 04/28/2024 11:25 AM ROCK BREAKER Temperature - - Respiratory Rate 16 04/28/2024 11:25 AM ROCK BREAKER Oxygen Saturation 95% 04/28/2024 11:25 AM ROCK BREAKER Inhaled Oxygen Concentration - - Weight 84.8 kg (187 lb) 04/28/2024 9:53 AM ROCK BREAKER Height 167.6 cm (5' 6) 04/28/2024 9:53 AM ROCK BREAKER Body Mass Index 30.18 04/28/2024 9:53 AM ROCK BREAKER documented in this encounter Medications at Time of Discharge Medication Sig Dispensed Refills Start Date End Date Calcium Carbonate Antacid 1000 MG Take by mouth. Reported on 08/14/2016 02/15/2012 dicyclomine (BENTYL) 20 MG tabletIndications:Irri table bowel syndrome, unspecified type,Chronic ulcerative proctitis with rectal bleeding (HRC) TAKE 1 TABLET BY MOUTH 4 TIMES DAILY NEEDED 360 Tablet 2 06/09/2021 Multiple Vitamin (MULTI-VITAMIN OR) Take 1 tablet by mouth daily (every 24 hours). 11/14/2011 norethindrone-eth estradiol (PIRMELLA ) 1-35 MG-MCG tabletIndications:Well adult exam Take 1 Tablet by mouth daily. CONTINOUSLY 112 Tablet 3 05/21/2020 triamterene-hydrochlor othiazide (MAXZIDE-25) 37.5-25 MG tabletIndications:Esse ntial hypertension (HRC) Take 1 Tablet by mouth daily. 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 0 03/10/2022 hyoscyamine (LEVSIN/SL) 0.125 MG sublingual tabletIndications:Irri table bowel syndrome, unspecified type PLACE 2 TABLETS (0.25 MG) UNDER TONGUE EVERY 4 HOURS NEEDED FOR CRAMPING. 60 Tablet 2 07/13/2023 05/15/2024 predniSONE (DELTASONE) 10 MG tablet Take 3 Tablets (30 mg) by mouth daily for 14 days, THEN 2 Tablets (20 mg) daily for 7 days, THEN 1.5 Tablets (15 mg) daily for 7 days, THEN 1 Tablet (10 mg) daily for 7 days, THEN 0.5 Tablets (5 mg) daily for 7 days. 77 Tablet 04/14/2024 05/14/2024 documented as of this encounter Procedure Notes * Мария Rasmussen [...] ulcerative colitis Providers: Мария Rasmussen MD, Marie Rueda, RN Referring MD: Teri Ruth Medicines: Midazolam 5 mg IV, Fentanyl 125 micrograms IV Complications: No immediate complications. Procedure: After I obtained informed consent, the scope was passed under direct vision. Throughout the procedure, the patient's blood pressure, pulse, and oxygen saturations were monitored continuously. The [id number] was introduced through the anus and advanced [...] from the initial medication administration until the cooler supervisor assists with initial maneuvers (biopsy / polypectomy [...] GI clinic. Procedure Code(s): --- Professional --- 01708, Colonoscopy, flexible; with biopsy, single or multiple G0500, Moderate sedation services provided by the same physician or other qualified health hourly caregiver performing a gastrointestinal endoscopic service that sedation supports, requiring the presence of an independent trained observer to assist in the monitoring of the patient's level of consciousness and physiological status; initial 15 minutes of intra-service time; patient age 5 years or older (additional time may be reported with 78152, as appropriate) Diagnosis Code(s): --- Professional --- D12.2, Benign neoplasm of ascending colon K63.89, Other specified diseases of intestine K51.20, Ulcerative (chronic) proctitis without complications K51.40, Inflammatory polyps of colon without complications K92.1, Melena (includes Hematochezia) K51.50, Left sided colitis without complications CPT copyright 2021 [employer]. All rights reserved. The codes documented in this report are preliminary and upon manager of sustainability review may be revised to meet current compliance requirements. Мария Rasmussen MD 04/28/2024 11:05:58 AM This document has been electronically signed. Number of Addenda: 0 Note Initiated On: 04/28/2024 10:22 AM Endoscopy Report BREAKER documented in this encounter Plan of Treatment Upcoming Encounters Date Type Department Care Team (Late st Contact Info) Description 08/04/2024 7:50 AM ROCK BREAKER Telemedicine Digestive Care at [facility] at [address] [place] [address] Teri Ruth, WEB CONTENT PRODUCER, DATA DEVELOPER [address] [place] [address] documented as of this encounter Procedures Procedure Name Priority Date/Time Associated Diagnosis Comments SURGICAL PATHOLOGY, GI Routine 04/28/2024 11:03 AM ROCK BREAKER Left sided colitis with rectal bleeding (HRC) COLONOSCOPY SCREENING Routine 04/28/2024 10:22 AM ROCK BREAKER Left sided colitis with rectal bleeding (HRC) documented in this encounter Results * Surgical Path - GI (04/28/2024 11:03 AM ROCK BREAKER) Case Report Surgical Pathology Case: [id number] Authorizing Provider: Мария Rasmussen MD Collected: 04/28/2024 1103 Ordering Location: Gastroenterology Received: 04/28/2024 1146 Procedures at [address] Pathologist: Maxx Khan MD Specimens: A) - Colon, cecum, ascending, transverse B) - Colon, descending, sigmoid C) - Colon, rectum D) - Colon, ascending 05/15/2024 8:03 AM ROCK BREAKER [facility] FINAL DIAGNOSIS A. Colon, cecum, ascending, transverse, biopsy: Negative for active colitis Negative for dysplasia B. Colon, descending, sigmoid, biopsy: Negative for active colitis Negative for dysplasia C. Colon, rectum, biopsy: Moderate chronic active colitis Indefinite for dysplasia D. Colon, ascending, polypectomy: Tubular adenoma Part C reviewed by RW. 05/15/2024 8:03 AM ROCK BREAKER [facility] Clinical Information Left sided colitis with rectal bleeding (HRC) 05/15/2024 8:03 AM ROCK BREAKER [facility] Microscopic Description Microscopic examination is performed. 05/15/2024 8:03 AM ROCK BREAKER [facility] Gross Description A: The specimen is [...] in one cassette. AW 05/15/2024 8:03 AM ROCK BREAKER [facility] Embedded Images 05/15/2024 8:03 AM ROCK BREAKER [facility] Tissue COLON STRUCTURE / Unknown 04/28/2024 11:03 AM ROCK BREAKER 04/28/2024 11:46 AM ROCK BREAKER Tissue specimen (specimen) COLON STRUCTURE / Unknown 04/28/2024 11:03 AM ROCK BREAKER 04/28/2024 11:46 AM ROCK BREAKER Tissue specimen (specimen) COLON STRUCTURE / Unknown 04/28/2024 11:03 AM ROCK BREAKER 04/28/2024 11:46 AM ROCK BREAKER Tissue specimen (specimen) COLON STRUCTURE / Unknown 04/28/2024 11:03 AM ROCK BREAKER 04/28/2024 11:46 AM ROCK BREAKER Мария Rasmussen MD LAB PATHOLOGY Performing Organization Address City/State/[facility] de Phone Number [facility] [address] * Colonoscopy Screening (04/28/2024 10:22 AM ROCK BREAKER) Anatomical Region Laterality Modality Other 04/28/2024 10:2 2 AM ROCK BREAKER Narrative 04/28/2024 10:22 AM ROCK BREAKER Patient Name: Idania Galeana Procedure Date: 04/28/2024 [...] and oxygen saturations were monitored continuously. The [id number] was introduced through the anus and advanced [...] from the initial medication administration until the cooler supervisor assists with initial maneuvers (biopsy / polypectomy [...] GI clinic. Procedure Code(s): --- Professional --- 76400, Colonoscopy, flexible; with biopsy, single or multiple G0500, Moderate sedation services provided by the same physician or other qualified health hourly caregiver performing a gastrointestinal endoscopic service that sedation supports, requiring the presence of an independent trained observer to assist in the monitoring of the patient's level of consciousness and physiological status; initial 15 minutes of intra-service time; patient age 5 years or older (additional time may be reported with 31622, as appropriate) Diagnosis Code(s): --- Professional --- D12.2, Benign neoplasm of ascending colon K63.89, Other specified diseases of intestine K51.20, Ulcerative (chronic) proctitis without complications K51.40, Inflammatory polyps of colon without complications K92.1, Melena (includes Hematochezia) K51.50, Left sided colitis without complications CPT copyright 2021 [employer]. All rights reserved. The codes documented in this report are preliminary and upon manager of sustainability review may be revised to meet current [...] and oxygen saturations were monitored continuously. The [id number] was introduced through the anus and advanced [...] from the initial medication administration until the cooler supervisor assists with initial maneuvers (biopsy / polypectomy [...] GI clinic. Procedure Code(s): --- Professional --- 67404, Colonoscopy, flexible; with biopsy, single or multiple G0500, Moderate sedation services provided by the same physician or other qualified health hourly caregiver performing a gastrointestinal endoscopic service that sedation supports, requiring the presence of an independent trained observer to assist in the monitoring of the patient's level of consciousness and physiological status; initial 15 minutes of intra-service time; patient age 5 years or older (additional time may be reported with 51493, as appropriate) Diagnosis Code(s): --- Professional --- D12.2, Benign neoplasm of ascending colon K63.89, Other specified diseases of intestine K51.20, Ulcerative (chronic) proctitis without complications K51.40, Inflammatory polyps of colon without complications K92.1, Melena (includes Hematochezia) K51.50, Left sided colitis without complications CPT copyright 2021 [employer]. All rights reserved. The codes documented in this report are preliminary and upon manager of sustainability review may be revised to meet current compliance requirements. Мария Rasmussen MD 04/28/2024 11:05:58 AM This document has been electronically signed. Number of Addenda: 0 Note Initiated On: 04/28/2024 10:22 AM Endoscopy Report Teri Ruth WEB CONTENT PRODUCER, DATA DEVELOPER ET GI PROCEDU RE ORDERABLES documented in this encounter Visit Diagnoses Diagnosis Left sided colitis with rectal bleeding (HRC) Left sided ulcerative (chronic) colitis * Plan of Care - Leanna Penn RN - 04/28/2024 11:28 AM CST Patient alert, oriented. Denies pain at this time. Tolerating liquids. Discussed discharge teaching. Patient/family given handouts. Verbalized understanding. BREAKER documented in this encounter Administered Medications Inactive Administered Medications - up to 3 most recent administrations Medication Order MAR Action Action Date Dose Rate Site 0.9% sodium chloride solution 10-60 mL 10-60 mL, Intravenous, PRN, Line Care, Starting on 11/4/24 at 0824, Flush line with 2 mL after administration of each incremental dose of IV medication. Given 04/28/2024 10:32 AM ROCK BREAKER 10 mL fentaNYL (SUBLIMAZE) 50 MCG/ML injection - ADS Override Pull Starting on Sun04/28/24 at 1021, Until Sun04/28/24 at 1032, For 1 dose, Marie Rueda: cabinet override fentaNYL (SUBLIMAZE) injection 25-100 mcg 25-100 mcg, Intravenous, PRN, Pain, moderate sedation, Starting on Sun04/28/24 at 0824, Until Sun05/19/24 at 0205, Administer in 25-100 mcg increments as directed by endoscopy procedure MD up to a total of 200 mcg. Given 04/28/2024 10:50 AM ROCK BREAKER 25 mcg Given 04/28/2024 10:43 AM ROCK BREAKER 50 mcg Given 04/28/2024 10:32 AM ROCK BREAKER 50 mcg midazolam (VERSED) 1 MG/1ML injection - ADS Override Pull Starting on Sun04/28/24 at 1021, Until Sun04/28/24 at 1032, For 1 dose, Marie Rueda: cabinet override midazolam (VERSED) injection 0.5-2 mg 0.5-2 mg, Intravenous, PRN, Sedation, Starting on Sun04/28/24 at 0824, Until Sun05/19/24 at 0205, Administer in 0.5 - 2 mg increments as directed by endoscopy procedure MD up to a total of 6 mg Given 04/28/2024 10:50 AM ROCK BREAKER 1 mg Given 04/28/2024 10:43 AM ROCK BREAKER 2 mg Given 04/28/2024 10:32 AM ROCK BREAKER 2 mg documented in this encounter Care Teams Crm Campaign Manager Relationship Specialty Start Date End Date Sheeba Castillo, WEB CONTENT PRODUCER, DATA DEVELOPER [address] [place] [address] PCP - General Nurse Practitioner 07/20/16 documented as of this encounter
--- OUTSIDE RECORDS SUMMARY | 2024-05-26 07:21 | XMS_ITS | Encounter Summary ---
Author Organization [employer] Address [address] [place] [address] Care Team Providers Care Program Administrator Name Role Phone Sheeba Castillo APRN, CNP Primary Care Provid er Reason for Visit * Reason Comments QUESTIONS, GENERAL Entered automaticall y based on patient selection in [employer]. Encounter Details Date Type Department Care Team (Late st Contact Info) Description 03/30/2024 9:00 PM CDT E-Visit Digestive Care at [facility] at [facility] [address] [place] [address]. [place], [place] [phone] Teri Spain APRN, SIERRA [address] [place] [phone] Dx: Left sided colitis with rectal bleeding [...] Sex Assigned at Female 05/09/2021 7:19 PM DRAPERY INSPECTOR Gender Identity Female 05/09/2021 7:19 PM DRAPERY INSPECTOR Sexual Orientation Straight 05/09/2021 7: 19 PM DRAPERY INSPECTOR documented as of this encounter Progress Notes [...] st Contact Info) Description 08/04/2024 7:50 AM DRAPERY INSPECTOR Telemedicine Digestive Care at [facility] at [address] [place], [place] [address] Teri Spain APRN, CNP [address] [place] [address] Scheduled Orders Name Type Priority Associated Diagnoses [...] colitis documented in this encounter Care Teams Program Administrator Relationship Specialty Start Date End Date Sheeba Castillo, RUDY, ELECTRO MECHANICAL ENGINEER [address] [place] [address] PCP - General Nurse Practitioner 07/20/16 documented as of this encounter
--- OUTSIDE RECORDS SUMMARY | 2024-05-26 07:21 | XMS_ITS | Encounter Summary ---
Author Organization [employer] Address [address] [place] [address] Care Team Providers Care Family Life Counselor Name Role Phone Sheeba Castillo APRN, CNP Primary Care Provid er Encounter Details Date Type Department Care Team (Late st Contact Info) Description 07/22/2016 Correspondence [facility] [address] [place], [place] [phone] Fernanda Lancaster PA-C [address] [place] [address] RETURN TO WORK AUTH Social History Tobacco Use Types Packs/Day Years Used Date Smoking Tobacco: Former Cigarettes 0.3 15 1 06/25/1999 - 04/25/2015 Smokeless Tobacco: Never Alcohol Use Standard Drinks/Week Comments Yes 0 (1 standard drink = 0.6 oz pur e alcohol) rarely Sex and Gender Information Value Date Recorded Sex Assigned at Female 05/09/2021 7:19 PM CHIEF PROCUREMENT OFFICER Gender Identity Female 05/09/2021 7:19 PM CHIEF PROCUREMENT OFFICER Sexual Orientation Straight 05/09/2021 7: 19 PM CHIEF PROCUREMENT OFFICER documented as of this encounter Plan of Treatment Upcoming Encounters Date Type Department Care Team (Late st Contact Info) Description 08/04/2024 7:50 AM CHIEF PROCUREMENT OFFICER Telemedicine Digestive Care at [facility] at [address] [place], [place] [address] Teri Ruth APRN, ENTERTAINMENT MUSICIAN [address] [place] [phone] documented as of this encounter Visit Diagnoses Not on filedocumented in this encounter Care Teams Family Life Counselor Relationship Specialty Start Date End Date Sheeba Castillo APRN, ENTERTAINMENT MUSICIAN [address] [place] [address] PCP - General Nurse Practitioner 07/20/16 documented as of this encounter
--- OUTSIDE RECORDS SUMMARY | 2024-05-26 07:21 | XMS_ITS | Encounter Summary ---
Author Organization [employer] Address [address] [place] [address] Care Team Providers Care Tile Helper Name Role Phone Sheeba Castillo APRN, CNP Primary Care Provid er Encounter Details Date Type Department Care Team (Late st Contact Info) Description 07/21/2016 Correspondence [facility] [address] [place], [place] [phone] Fernanda Lancaster PA-C [address] [place] [address] DISABILITY CLAIM FAMILY MEDICAL LEAVE Social History Tobacco Use Types Packs/Day Years Used Date Smoking Tobacco: Former Cigarettes 0.3 15 1 06/25/1999 - 04/25/2015 Smokeless Tobacco: Never Alcohol Use Standard Drinks/Week Comments Yes 0 (1 standard drink = 0.6 oz pur e alcohol) rarely Sex and Gender Information Value Date Recorded Sex Assigned at Female 05/09/2021 7:19 PM APPLICATIONS ADMINISTRATOR Gender Identity Female 05/09/2021 7:19 PM APPLICATIONS ADMINISTRATOR Sexual Orientation Straight 05/09/2021 7: 19 PM APPLICATIONS ADMINISTRATOR documented as of this encounter Plan of Treatment Upcoming Encounters Date Type Department Care Team (Late st Contact Info) Description 08/04/2024 7:50 AM APPLICATIONS ADMINISTRATOR Telemedicine Digestive Care at [facility] [address] [place], [place] [address] Teri Ruth APRN, CHIEF SUSTAINABILITY OFFICER [address] [place] [phone] documented as of this encounter Visit Diagnoses Not on filedocumented in this encounter Care Teams Tile Helper Relationship Specialty Start Date End Date Sheeba Castillo APRN, CHIEF SUSTAINABILITY OFFICER [address] [place] [address] PCP - General Nurse Practitioner 07/20/16 documented as of this encounter
--- OUTSIDE RECORDS SUMMARY | 2024-05-26 07:21 | XMS_ITS | Encounter Summary ---
Author Organization [facility] Address [address] [place] [address] Care Team Providers Care Central Sterilization Technician Name Role Phone Sheeba Castillo APRN, CNP Primary Care Provid er Encounter Details Date Type Department Care Team (Late st Contact Info) Description 04/23/2024 E-Visit Endoscopy at [address] [place], [place] [phone] [employer], [place] [address] Social History Tobacco Use Types Packs/Day Years [...] Sex Assigned at Female 05/09/2021 7:19 PM ACIDIZER WATER WELL Gender Identity Female 05/09/2021 7:19 PM ACIDIZER WATER WELL Sexual Orientation Straight 05/09/2021 7: 19 PM ACIDIZER WATER WELL documented as of this encounter Plan of Treatment Upcoming Encounters Date Type Department Care Team (Late st Contact Info) Description 08/04/2024 7:50 AM ACIDIZER WATER WELL Telemedicine Digestive Care at [place] [address] [facility] [address] [facility]. [place], [place] [address] Teri Ruth APRN, STRIP PRESSER [address] [place], [place] [phone] documented as of this encounter Visit Diagnoses Not on filedocumented in this encounter Care Teams Central Sterilization Technician Relationship Specialty Start Date End Date Sheeba Castillo APRN, STRIP PRESSER [address] [place] [address] PCP - General Nurse Practitioner 07/20/16 documented as of this encounter
--- OUTSIDE RECORDS SUMMARY | 2024-05-26 07:21 | XMS_ITS | Encounter Summary ---
Author Organization [employer] Address [address] [place] [address] Care Team Providers Care Healthcare Associate Name Role Phone Sheeba Castillo APRN, CNP Primary Care Provid er Encounter Details Date Type Department Care Team (Latest Contact Info) Description 04/11/2024 Orders Only HIM DEPARTMENT Provider, [place] [address] Social History Tobacco Use Types Packs/Day Years [...] Sex Assigned at Female 05/09/2021 7:19 PM EMERGENCY MEDICAL TECHNICIAN/DRIVER Gender Identity Female 05/09/2021 7:19 PM EMERGENCY MEDICAL TECHNICIAN/DRIVER Sexual Orientation Straight 05/09/2021 7: 19 PM EMERGENCY MEDICAL TECHNICIAN/DRIVER documented as of this encounter Plan of Treatment Upcoming Encounters Date Type Department Care Team (Late st Contact Info) Description 08/04/2024 7:50 AM EMERGENCY MEDICAL TECHNICIAN/DRIVER Telemedicine Digestive Care at [facility] at [address] [place] [address] Teri Ruth, SIERRA GRANT [address] [place] [address] documented as of this encounter Procedures Procedure Name Priority Date/Time Associated Diagnosis Comments LABORATORY REPORT 04/11/2024 documented in this encounter Results * LABORATORY REPORT (04/11/2024) Interface Provider MD DUMMY/OTHER/AR documented in this encounter Visit Diagnoses Not on filedocumented in this encounter Care Teams Healthcare Associate Relationship Specialty Start Date End Date Sheeba Castillo, SIERRA GRANT [address] [place] [address] PCP - General Nurse Practitioner 07/20/16 documented as of this encounter
--- OUTSIDE RECORDS SUMMARY | 2024-05-26 07:21 | XMS_ITS | Encounter Summary ---
Author Organization [employer] Address [address] [place] [address] Care Team Providers Care Coal Bagger Name Role Phone Sheeba Castillo APRN, CNP Primary Care Provid er Reason for Visit * Reason Comments QUESTIONS, GENERAL Entered automaticall y based on patient selection in [employer] Encounter Details Date Type Department Care Team (Late st Contact Info) Description 05/08/2024 2:05 PM ART APPRAISER E-Visit Digestive Care at [facility] at [facility] [address] [place] [address]. [place] [address] Teri Ruth APRN, SIERRA [address] [place] [address] Chief Comp: QUESTIONS, GENERAL Social History [...] Sex Assigned at Female 05/09/2021 7:19 PM ART APPRAISER Gender Identity Female 05/09/2021 7:19 PM ART APPRAISER Sexual Orientation Straight 05/09/2021 7: 19 PM ART APPRAISER documented as of this encounter Plan of Treatment Upcoming Encounters Date Type Department Care Team (Late st Contact Info) Description 08/04/2024 7:50 AM ART APPRAISER Telemedicine Digestive Care at [facility] at [facility] [address] [facility] [address] [place] [address]. [place], [place] [address] Teri Ruth APRN, IMPREGNATING HELPER [address] [place] [phone] documented as of this encounter Visit Diagnoses Not on filedocumented in this encounter Care Teams Coal Bagger Relationship Specialty Start Date End Date Sheeba Castillo APRN, IMPREGNATING HELPER [address] [place] [address] PCP - General Nurse Practitioner 07/20/16 documented as of this encounter
--- OUTSIDE RECORDS SUMMARY | 2024-05-26 07:21 | XMS_ITS | Encounter Summary ---
Author Organization [employer] Address [address] [place] [address] Care Team Providers Care Payroll Representative Name Role Phone Sheeba Castillo APRN, CNP Primary Care Provid er Encounter Details Date Type Department Care Team (Latest Contact Info) Description 05/07/2024 Orders Only HIM DEPARTMENT Provider, [place] [address] Social History Tobacco Use Types Packs/Day Years [...] Sex Assigned at Female 05/09/2021 7:19 PM AMMUNITION ASSEMBLY II LABORER Gender Identity Female 05/09/2021 7:19 PM AMMUNITION ASSEMBLY II LABORER Sexual Orientation Straight 05/09/2021 7: 19 PM AMMUNITION ASSEMBLY II LABORER documented as of this encounter Plan of Treatment Upcoming Encounters Date Type Department Care Team (Late st Contact Info) Description 08/04/2024 7:50 AM AMMUNITION ASSEMBLY II LABORER Telemedicine Digestive Care at [facility] at [address] [place] [address] Teri Ruth, MACHINE GUN MECHANIC, SPECIAL EVENTS ASSISTANT [address] [place] [address] documented as of this encounter Procedures Procedure Name Priority Date/Time Associated Diagnosis Comments LABORATORY REPORT 05/07/2024 documented in this encounter Results * LABORATORY REPORT (05/07/2024) Interface Provider MD DUMMY/OTHER/AR documented in this encounter Visit Diagnoses Not on filedocumented in this encounter Care Teams Payroll Representative Relationship Specialty Start Date End Date Sheeba Castillo, [place] [address] [place] [phone] PCP - General Nurse Practitioner 07/20/16 documented as of this encounter
[2024-06-05 17:08] LABS: Vedolizumab Antibodies <9.8 ng/mL (<9.8); Vedolizumab Quantitation 11.5 mcg/mL
== END 2024-05-26 07:19 | disposition home or self-care (01) ==
PROVIDERS: PCP Family Medicine; Visit Provider Nurse Practitioner Adult Health
DX: K51.311 Ulcerative (chronic) rectosigmoiditis with rectal bleeding (principal)
CPT/HCPCS: 36415; 80280; 82397

== ENCOUNTER 2024-06-26 07:22 | Outpatient (CLI) | payer OTHER, SELFPAY | END 2024-06-26 07:23 | disposition home or self-care (01) | LOC: NFLDREF 06-29 01:09 | PROVIDERS: PCP Family Medicine; Referring Provider Family Medicine; Visit Provider Family Medicine | DX: E78.5 Hyperlipidemia, unspecified (principal); E87.6 Hypokalemia; E66.9 Obesity, unspecified; K51.00 Ulcerative (chronic) pancolitis without complications | CPT/HCPCS: 80053; 80061 ==

== ENCOUNTER 2024-07-24 15:15 | Outpatient (CLI) | payer OTHER, SELFPAY ==
--- NOTE | 2024-07-24 15:20 | CRLHL7_ITS ---
For Patients: As a result of the Century Cures Act, medical imaging exams and procedure reports are released immediately into your electronic medical record. You may view this report before your referring provider. If you have questions, please contact your health care provider. BILATERAL SCREENING MAMMOGRAM WITH COMPUTER-AIDED DETECTION AND TOMOSYNTHESIS TECHNIQUE: CC and MLO views were obtained. These mammographic images have been obtained using full-field digital technique. These mammographic images were interpreted with the benefit of computer-aided detection. Breast tomosynthesis was used in this interpretation. COMPARISON FILM: 06/19/23, 05/09/22, 03/24/21. FINDINGS: There are scattered areas of fibroglandular density. IMPRESSION: There is no radiographic evidence for malignancy. ASSESSMENT: BI-RADS Category 2: Benign RECOMMENDATION: Routine screening mammogram in 1 year. A lay language report of this examination will be provided to the patient. EUSEBIO CROOKS M.D. Diagnostic Radiologist [email or web address] CHIP/anthony Transcribed: 07/25/2024, 2:[address]/Dictated by: Eusebio Crooks MD @ 07/25/2024 10:59:00 AM (Electronically Signed)
== END 2024-07-24 15:16 | disposition home or self-care (01) ==
LOC: MAMMO 15:16
PROVIDERS: PCP Family Medicine; Visit Provider Family Medicine
DX: Z12.31 Encounter for screening mammogram for malignant neoplasm of breast (principal)
CPT/HCPCS: 77063; 77067

== ENCOUNTER 2024-11-05 14:30 | Outpatient (RCR) | payer OTHER, SELFPAY ==
[2024-05-26 14:34] VITALS: BP 157/83; PULSE 92; RESP 16; TEMP 36.4; O2SAT 99
[2024-05-26] MEDS: VEDOLIZUMAB 300 MG, TUBING SECONDARY 1 EACH in 0.9 % SODIUM CHLORIDE 250 ml 250 ML 510 MG IVPB (15:05)
[2024-05-26] MEDS: 0.9 % SODIUM CHLORIDE 250 ml 250 ML 35 ML IV (15:06)
--- NOTE | 2024-07-17 13:26 | URNOTE ---
Dr. Shook's office at [facility] called to see where we were at with the prior authorization for Entyvio. Notified them that insurance denied prior authorization and a letter was sent out yesterday.
--- NOTE | 2024-07-30 09:52 | URNOTE ---
Shama ([id number]) has been denied for every 4 weeks 07/04/2024 to 07/03/2025, see denial note from [employer]. Ref#[id number].
--- NOTE | 2024-07-30 09:54 | URNOTE ---
Shama ([id number]) has been approved 03/28/2024-03/28/2025. .
[2024-08-04 14:23] VITALS: BP 113/71; PULSE 83; RESP 16; TEMP 36.8; O2SAT 96
[2024-08-04] MEDS: VEDOLIZUMAB 300 MG, TUBING SECONDARY 1 EACH in 0.9 % SODIUM CHLORIDE 250 ml 250 ML 510 MG IVPB (14:47)
[2024-08-04] MEDS: SODIUM CHLORIDE 0.9 % (FLUSH) 10 ML SYRINGE IVF (14:47)
[2024-08-04] MEDS: 0.9 % SODIUM CHLORIDE 250 ml IV (14:47)
--- NOTE | 2024-08-25 12:41 | ONC.NURNOTE ---
Received Vedolizumab appeal letter stating that the original denial was overturned. Letter given to [facility] UR department for documentation. Upated pt's ordering provider, Dr. Ruth at [facility].
--- NOTE | 2024-08-26 14:34 | URNOTE ---
Shama ([id number]) has been approved every 4 weeks by [facility], Ref# [id number] date range: 07/04/2024 to 07/03/2025
--- NOTE | 2024-09-02 12:50 | ONC.NURNOTE ---
Pt states she had surgery on her upper back for melanoma last week. Char House Supervisor called pt's provider ordering the entyvio to confirm if okay to treat today or wait. Per [place] at [facility], okay to treat. When talking to pt, she would like to push infusion out at least a week since wound is still healing. [facility] House Supervisor also requested last MD note. Savita Abrams updated.
[2024-09-10 14:16] VITALS: BP 145/78; PULSE 96; RESP 18; TEMP 36.6; O2SAT 97
[2024-09-10] MEDS: SODIUM CHLORIDE 0.9 % (FLUSH) 10 ML SYRINGE IVF (14:34)
[2024-09-10] MEDS: 0.9 % SODIUM CHLORIDE 250 ml IV (14:35)
[2024-09-10] MEDS: VEDOLIZUMAB 300 MG, TUBING SECONDARY 1 EACH in 0.9 % SODIUM CHLORIDE 250 ml 250 ML 510 MG IVPB (14:42)
[2024-10-08 14:32] VITALS: BP 125/75; PULSE 93; RESP 20; TEMP 36.2; O2SAT 95
[2024-10-08] MEDS: SODIUM CHLORIDE 0.9 % (FLUSH) 10 ML SYRINGE IVF (14:58)
[2024-10-08] MEDS: 0.9 % SODIUM CHLORIDE 250 ml IV (14:58)
[2024-10-08] MEDS: VEDOLIZUMAB 300 MG, TUBING SECONDARY 1 EACH in 0.9 % SODIUM CHLORIDE 250 ml 250 ML 510 MG IVPB (14:58)
[2024-11-05 14:22] VITALS: BP 117/80; PULSE 67; RESP 18; TEMP 36.6; O2SAT 99
[2024-11-05] MEDS: VEDOLIZUMAB 300 MG, TUBING SECONDARY 1 EACH in 0.9 % SODIUM CHLORIDE 250 ml 250 ML 510 MG IVPB (14:47)
[2024-11-05] MEDS: SODIUM CHLORIDE 0.9 % (FLUSH) 10 ML SYRINGE IVF ×2 (14:47→15:22)
[2024-11-05] MEDS: 0.9 % SODIUM CHLORIDE 250 ml IV (14:47)
== END 2024-11-22 23:59 | disposition home or self-care (01) ==
LOC: CCIC 14:30
PROVIDERS: PCP Family Medicine; Referring Provider Family Medicine; Visit Provider Internal Medicine Hematology & Oncology
DX: K51.911 Ulcerative colitis, unspecified with rectal bleeding (principal)
CPT/HCPCS: 96365; 99214; G0463; J3380; J7050

== ENCOUNTER 2024-12-02 18:26 | Outpatient (REF) | payer OTHER, SELFPAY ==
[2024-12-06 01:28] LABS: Calprotectin, Fecal 1550 ug/g (<=49)
== END 2024-12-02 18:27 | disposition home or self-care (01) ==
LOC: NPINS 18:26
PROVIDERS: PCP Family Medicine; Visit Provider Internal Medicine
DX: K51.911 Ulcerative colitis, unspecified with rectal bleeding (principal)
CPT/HCPCS: 83993

== ENCOUNTER 2024-12-03 08:42 | Outpatient (CLI) | payer OTHER, SELFPAY ==
[2024-12-03 09:23] LABS: Basophils Absolute Auto 0.04 K/uL (0.00-0.30); Basophils Percent Auto 0.9 % (0.0-3.0); Eosinophils Absolute Auto 0.22 K/uL (0.00-0.50); Eosinophils Percent Auto 4.7 % (0.0-7.0); Hematocrit 38.4 % (33.0-51.0); Hemoglobin* 12.5 gm/dL (12.0-16.0); Immature Granulocytes Abs Auto 0.01 K/uL (0.00-0.30); Immature Granulocytes Pct Auto 0.2 %; Lymphocytes Absolute Auto 1.69 K/uL (0.90-2.90); Mean Corpuscular HGB Conc 33 gm/dL (32-36); Mean Corpuscular Hemoglobin 30 pg (26-34); Mean Corpuscular Volume 93 fL (80-100); Monocytes Percent Auto 6.2 % (0.0-11.0); Neutrophils Absolute Auto 2.44 K/uL (1.7-7.0); Platelet Count* 201 K/uL (140-440); RDW Coefficient of Variation % 11.8 % (11.5-15.5); Red Blood Count 4.13 m/uL (4.00-5.20); White Blood Count* 4.69 K/uL (4.50-11.00)
[2024-12-03 09:28] LABS: Slide Review Reflex No
[2024-12-03 09:47] LABS: Albumin* 4.2 g/dL (3.3-5.0); Chloride* 102 mmol/L (96-114); Sodium* 138 mmol/L (135-149)
[2024-12-03 09:51] LABS: Alanine Aminotransferase* 18 U/L (4-35); Alkaline Phosphatase* 92 U/L (40-150); Anion Gap 6 mEq/L (7-15); Aspartate Amino Transferase* 30 U/L (12-35); Bilirubin Direct* 0.1 mg/dL (0.0-0.5); Bilirubin Total* 0.3 mg/dL (0.1-1.5); Blood Urea Nitrogen* 10 mg/dL (5-24); Calcium* 9.2 mg/dL (8.4-10.6); Carbon Dioxide* 30 mmol/L (20-32); Creatinine* 0.6 mg/dL (0.5-1.5); Estimated Glomerular Filt Rate 111 ml/min; Glucose* 98 mg/dL (60-115); Total Protein* 7.2 g/dL (6.0-8.3)
[2024-12-10 15:29] LABS: Vedolizumab Antibodies <9.8 ng/mL (<9.8); Vedolizumab Quantitation 32.3 mcg/mL
== END 2024-12-03 08:43 | disposition home or self-care (01) ==
PROVIDERS: PCP Family Medicine; Visit Provider Internal Medicine
DX: K51.911 Ulcerative colitis, unspecified with rectal bleeding (principal)
CPT/HCPCS: 36415; 80048; 80076; 80280; 82397; 85025; 86140

== ENCOUNTER 2024-12-09 16:39 | Outpatient (REF) | payer OTHER, SELFPAY ==
[2024-12-09 18:16] LABS: C.Difficile Negative (Negative); CDIFFEPI 027 PRESUMPTIVE NEGATIVE (Negative)
[2024-12-12 21:50] LABS: Cryptosporidium by PCR Not Detected; Cyclospora cayetanensis by PCR Not Detected; Dientamoeba fragilis by PCR Not Detected; Entamoeba histolytica by PCR Not Detected; Giardia by PCR Not Detected
[2024-12-20 05:02] LABS: Adenovirus PCR Not Detected; Astrovirus PCR Not Detected; Campylobacter PCR Not Detected; Cryptosporidium PCR Not Detected; Cyclospora cayetanensis PCR Not Detected; Entamoeba histolytica PCR Not Detected; Enteroaggregative E coli PCR Not Detected; Enteropathogenic E coli PCR Not Detected; Enterotoxigenic E coli PCR Not Detected; Giardia lamblia PCR Not Detected; Norovirus Gi/GII PCR Not Detected; Plesiomonas shig PCR Not Detected; Rotavirus A PCR Not Detected; Salmonella PCR Not Detected; Sapovirus PCR Not Detected; Shiga toxin E coli PCR Not Detected; Shigella/Enteroinvasive E coli Not Detected; Vibrio PCR Not Detected; Vibrio cholerae PCR Not Detected; Yersinia enterocolitica PCR Not Detected
== END 2024-12-09 16:40 | disposition home or self-care (01) ==
LOC: LAB 16:39
PROVIDERS: PCP Family Medicine; Visit Provider Internal Medicine
DX: K51.911 Ulcerative colitis, unspecified with rectal bleeding (principal)
CPT/HCPCS: 87493; 87505; 87507

== ENCOUNTER 2024-12-29 06:35 | Emergency (ER) | payer OTHER, SELFPAY ==
--- OUTSIDE RECORDS SUMMARY | 2024-11-25 15:20 | XMS_ITS | Encounter Summary ---
Author Organization [employer] Address [address] [place] [address] Care Team Providers Care Bark Press Operator Name Role Phone Sheeba Castillo APRN, CNP Primary Care Provid er Reason for Visit * Reason Comments Pre-visit Planning Entered automaticall y based on patient selection in [facility]. 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 Advised pt to check with them to just verify it was all received, in order toget them completed tomorrow 12/03/2024 before her infusion. Pt verbalized understanding and will contact us if there is any issues. * Kinga Burns RN - 12/02/2024 9:47 AM CDT Noted by commercial insurance underwriter. Per Dr. Lan's written order in this [...] Quiñones RN - 12/01/2024 3:11 PM CDT technical writing lead/mgr please fill out a fuchsia form for labs Vedolizumab trough level with reflex to antibody - on the day of infusion (prior to infusion) on 12/03/24along with CBC, BMP, LFTs, CRP and fecal calprotectin. [facility] [place] nurse Gonzalez contact number for any questions regarding labs: [phone] Routing to bakery team member. MyChart sent to pt with [...] CRP and fecal calprotectin. Luke Bourne MD Vamp Cut Out Worker [facility] documented in this encounter Plan of Treatment Upcoming Encounters Date Type Department Care Team (Late st Contact Info) Description 01/09/2025 9:00 AM CDT Appointment [facility] [address] [phone] Kiley Luo, PharmD [address] [place], [place] [phone] 03/10/2025 7:50 AM CDT Telemedicine Digestive Care at [facility] [address] [facility] [address] [place], [place] [phone] Teri Ruth, STEAM AND POWER SUPERVISOR, KEY PUNCH OPERATOR [address] [place], [place] [phone] Scheduled Orders Name Type Priority Associated Diagnoses [...] proctitis documented in this encounter Care Teams Bark Press Operator Relationship Specialty Start Date End Date Sheeba Castillo, STEAM AND POWER SUPERVISOR, KEY PUNCH OPERATOR [address] [address] [place] [phone] PCP - General Nurse Practitioner 07/20/16 documented as of this encounter
--- OUTSIDE RECORDS SUMMARY | 2024-12-08 10:40 | XMS_ITS | Encounter Summary ---
Author Organization [facility] Address [address] [place] [address] Care Team Providers Care Investigation Specialist Name Role Phone Sheeba Castillo APRN, CNP Primary Care Provid er Reason for Visit * Reason Comments Follow-up Encounter Details Date Type Department Care Team (Late st Contact Info) Description 12/08/2024 10:40 AM CDT Office Visit [facility] at [facility] [address] [id number] Eusebio Haines MD [address] [place] [address] Left sided colitis with rectal bleeding (HRC) (Primary Dx); Hematochezia; Diarrhea, unspecified type; Tenesmus (rectal) Social History Tobacco Use Types Packs/Day Years [...] Sex Assigned at Female 05/09/2021 7:19 PM MEMBERSHIP SALES ADVISOR Legal Sex Female 11:31 AM CDT Gender Identity Female 05/09/2021 7:19 PM MEMBERSHIP SALES ADVISOR Sexual Orientation Straight 05/09/2021 7: 19 PM MEMBERSHIP SALES ADVISOR 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 I am sorry you are not doing well with respect to your inflammatory bowel disease. I have given you a prescription for a prednisone taper; this was sent to your local pharmacy in [place]. This is a temporary measure until we get your inflammatory bowel disease under control. This will depend on your blood test results, some stool test results and may require the need to changeyour treatment. We discussed potential other treatment options in lieu of the Entyvio if this proves to be ineffective. These include IL 23 inhibitors some of which we discussed like ustekinumab, andothers. I can give you more information on this once your blood test results have been reviewed. Inthe meantime, please make sure you submit the stool samples of the studies we ordered to make sure t hat this isn't actually an infection mimicking a flare. This will also be necessary to rule out in order to make a case to your health insurance company to change your medication/treatment if needed. I will arrange for you to have a follow-up visit in the Gastroenterology clinic in 3 months. In themeantime, you and I will be in contact via your [employer] account. documented in this encounter Progress Notes * Eusebio Haines MD - 12/08/2024 10:40 AM CDT GI Clinic Progress Note Idania Galeana MR# [id number] [facility]# [id number] Date of Visit: 12/08/24 Idania Galeana is a 49 y.o. 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 Biochemical and stool studies in March of 2024 revealed normal white blood cell count, normal hemoglobin, normal platelet count, normal C-reactive protein and negative enteric stool pathogen panel and enteric stool parasite panel. Patient developed symptoms consistent with a flare in March of last year and has required at least 1 or 2 rounds of prednisone since then; there have been challenges getting this patient's health insurance company to approve augmenting her vedolizumab infusions less than every 8 weeks which was her original maintenance treatment but in the interim, this has been able to be changed so that she is receiving infusions every 4 weeks. During the time that attempts were made to augment her vedolizumab infusion regimen, patient also tried using topical per rectum mesalamine which the patient states helped for perhaps a month but then completely stopped working in spite of daily use. Last infusion with vedolizumab was last Sunday. Patient also reports that she had biochemical studies and a stool test done last Sunday just prior to her infusion. Reports that the fecal calprotectin was high but I do not have any documentation with actual results on the stool test nor her blood test results. Reports that she is having anywhere from 15-20 bowel movements per day but reports that the bowel movements are low in volume and mostly gas with bloody mucus and small chunks of stool. Symptoms moreconsistent with tenesmus and urgency without large volume stool. Patient also reports that she had a melanoma removed from her back, from within the tattoo on her back, about 2 months ago at an outside Dermatology facility. No records readily available for review but patient tells me that the adenoma was excised in toto and that no further treatments were recommended for her. PMH: Past Medical History: Diagnosis Date BCC (basal cell carcinoma), leg 08/11/2011 BP (high blood pressure) ([facility]) Chronic headaches 08/11/2011 Clostridium difficile colitis 01/2012 Concussion 08/11/2011 HTN (hypertension) ([facility]) 08/11/2011 Hx of tonsillectomy 08/11/2011 Irritable bowel syndrome 11/29/2002 Melanoma Trunk 11/01/2010 Obesity ([facility]) 08/11/2011 PSH: Past Surgical History: Procedure Laterality Date CYST REMOVAL left wrist LAP CHOLECYSTECTOMY 07/12/2016 TONSILLECTOMY Outpatient Meds: Outpatient Medications Prior to Visit Medication Sig Dispense Refill Calcium Carbonate Antacid 1000 MG Take by mouth. Reported on 08/14/2016 cholestyramine (QUESTRAN) 4 GM/DOSE powder MIX 4 GRAMS IN 4-8 OUNCESOF FLUID AND DRINK ONCE DAILY. MAY INCREASE TO TWICE DAILY IF NOT IMPROVING. SEPERATE AT LEAST 2 HOURS FROM OTHER MEDICATIONS. 378 g 3 dicyclomine (BENTYL) 20 MG tablet TAKE 1 TABLET BY MOUTH 4 TIMES DAILY NEEDED 360 Tablet 0 hyoscyamine (OSCIMIN) 0.[address] 2 TABLETS (0.25 MG) UNDER TONGUE EVERY 4 HOURS NEEDED FOR CRAMPING. 60 Tablet 1 mesalamine (ROWASA) 4 g enema Insert 60 mL (4 g) rectally daily at bedtime. 30 Each 1 Multiple Vitamin (MULTI-VITAMIN OR) Take 1 tablet by mouth daily (every 24 hours). norethindrone-eth estradiol (PIRMELLA ) 1-35 MG-MCG tablet Take 1 Tablet by mouth daily. CONTINOUSLY 112 Tablet 3 triamterene-hydrochlorothiazide (MAXZIDE-25) 37.5-25 MG tablet Take 1 Tablet by mouth daily. 90 Tablet 3 vedolizumab (ENTYVIO) 300 MG SOLR injection Maintenance Entyvio infusions every 8 weeks. 0 No facility-administered medications prior to visit. Allergies: No Known Allergies Review of Systems: Gen: Denies fevers, chills. Does endorse some weight loss over the last several months. All other systems of a 10 point review of systems negative except as above and per hpi. PE: There were no vitals filed for this visit. GEN: No acute distress, comfortable in appearance, not acutely ill/toxic in appearance Head: normocephalic, atraumatic; sclera anicteric ENT: oropharynx clear, normal hearing CV: regular rate and rhythm Lungs: clear to auscultation bilaterally via anterior auscultation Abdomen: Bowel sounds are able be heard and are of normal pitch and frequency. Nondistended. Nontender to light deep palpation. Skin: no obvious rash, no skin breakdown, right forearm tattoo MSK: No swelling in the bilateral lower extremities Neuro: A&Ox3, no focal deficits Psych: appropriate affect and mood Labs: @PNBRIEFLAB(WBC,wbccr,hgb,hct,mcv,PLTS) ) Lab Results Component Value Date Iron Binding Capacity 319 03/24/2015 Iron, Serum 88 03/24/2015 Lab Results Component Value Date INR 1.0 05/01/2019 Protime 12.9 05/01/2019 Lab Results Component Value Date Alkaline Phosphatase 70 03/10/2022 Bilirubin, Total 0.4 03/10/2022 Bilirubin, Direct 0.1 04/30/2019 Protein, Total 6.9 04/30/2019 Albumin 3.3 (L) 04/30/2019 AST (SGOT) 14 04/30/2019 ALT (SGPT) 21 03/10/2022 Lab Results Component Value Date Lipase 129 (H) 07/19/2016 Lipase 354 (H) 07/05/2016 Lab Results Component Value Date Sodium 139 04/08/2020 Potassium 3.4 (L) 04/08/2020 Chloride 102 04/08/2020 CO2 28 04/08/2020 Lab Results Component Value Date Creatinine 0.70 03/10/2022 Iron Studies: Lab Results Component Value Date Ferritin Serum 71 03/24/2015 Lab Results Component Value Date Iron, Serum 88 03/24/2015 No results found for: TRANSFERRIN No results found for: TIBCC Lab Results Component Value Date Iron Saturation 28 03/24/2015 Lab Results Component Value Date Iron Binding Capacity 319 03/24/2015 Celiac Specific Labs: No results found for: TTGAB No results found for: IGA HIV: Lab Results Component Value Date HIV 1/HIV 2 Non-React 03/24/2015 Hep A: Lab Results Component Value Date Hepatitis A Antibody, IgG Negative (Non Reactive) 03/10/2022 Hep B: Lab Results Component Value Date Hep B Surf Ag Nonreactive 07/26/2016 Lab Results Component Value Date Hep B Ab Quant >1,000 07/26/2016 Hep B Ab Quant 562 01/09/2014 Hep B Surf Ab Reactive 07/26/2016 Hep B Surf Ab Reactive 01/09/2014 No results found for: HBVCOREAB Hep C: No results found for: ANTIHCV No results found for: HCGEN No results found for: HCVLOAD Inflammatory Markers: Lab Results Component Value Date C-Reactive Protein 1.0 (H) 03/10/2022 C-Reactive Protein 1.5 (H) 12/01/2019 C-Reactive Protein 1.0 (H) 08/04/2019 C-Reactive Protein 0.2 05/04/2019 C-Reactive Protein 0.3 05/02/2019 C-Reactive Protein 0.4 05/01/2019 Lab Results Component Value Date Calprotectin Fecal <16 01/04/2017 Fecal Calprotectin >1250 (H) 07/31/2019 Fecal Calprotectin 691 (H) 05/01/2019 Fecal Calprotectin 181 (H) 04/25/2019 Lab Results Component Value Date Sedimentation Rate 7 04/30/2019 Sedimentation Rate 12 01/03/2017 Sedimentation Rate 18 10/12/2016 Sedimentation Rate 19 04/02/2015 Sedimentation Rate 14 02/28/2008 Sedimentation Rate 3 09/27/2001 Vitamins Levels: Lab Results Component Value Date Vitamin D 25 Oh 62 05/29/2016 Vitamin D 25 Oh 28 02/05/2016 Vitamin D 25 Oh 38 08/25/2013 Vitamin D 25 Oh 26 (L) 07/06/2010 Lab Results Component Value Date Vitamin B12 905 04/02/2015 Imaging: No results found. GI Procedures: Colonoscopy Procedure Date: 04/28/2024 10:22 AM Date of [...] and oxygen saturations were monitored continuously. The [id number] was introduced through the anus and advanced [...] from the initial medication administration until the dividend clerk assists with initial maneuvers (biopsy / polypectomy [...] to GI clinic. FINAL DIAGNOSIS A. Colon, cecum, ascending, transverse, biopsy: ? Negative for active colitis ? Negative for dysplasia B. Colon, descending, sigmoid, biopsy: ? Negative for active colitis ? Negative for dysplasia C. Colon, rectum, biopsy: ? Moderate chronic active colitis ? Indefinite for dysplasia D. Colon, ascending, polypectomy: ? Tubular adenoma IMPRESSION/ASSESSMENT/PLAN: Left sided colitis with rectal bleeding (HRC)/Hematochezia/Diarrhea, unspecified type/Tenesmus (rectal) - predniSONE (DELTASONE) 10 MG tablet; Take 4 Tablets (40 mg) by mouth daily for 7 days, THEN 3 Tablets (30 mg) daily for 7 days, THEN 2 Tablets (20 mg) daily for 7 days, THEN 1.5 Tablets (15 mg) daily for 7 days, THEN 1 Tablet (10 mg) daily for 7 days, THEN 0.5 Tablets (5 mg) daily for 7 days. Patient presents with what seems to be ongoing and perhaps worsening flare of her ulcerative colitis. Symptoms now disruptive enough to be affecting not only quality life but ability to work. Diagnosis of flare supported not just by symptoms by objective evidence revealing markedly elevated fecal calprotectin levels. Therefore, reasonable to temporarily treat the flare with prednisone which has worked for her in the past. I will ask our nursing staff to obtain the blood test results she completed last Sunday along with a stool test results. If vedolizumab level is well within the therapeutic range and no antibodies are found and there is no infection, we will have to declare this a mechanistic failure and move on to a different agent. Discussed potential other treatment options including IL 23 inhibitors. Also discussed CAIT inhibitors but given the patient's history of malignancy (breast cancer and more recently melanoma) I am reluctant to use these medications as a means of long-term treatment for her inflammatory bowel disease. 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 This willat some point need to be followed up upon but I think the goal here would be to get this patient into at least a clinical remission before repeating a colonoscopies both to assess for mucosal healingand to re-examine the rectum with biopsies. Patient also tells me she has had DEXA scans and that these have all been normal but I do not have any access to these results. All questions were answered today to the patient's satisfaction. The patient verbalized agreement with the plan of care. Plan will be for patient to follow up in the Gastroenterology clinic with GI APC in 3 months. Eusebio Haines MD Gastroenterology and Hepatology documented in this encounter Plan of Treatment Upcoming Encounters Date Type Department Care Team (Late st Contact Info) Description 01/09/2025 9:00 AM CDT Appointment [facility] [address] [phone] Kiley Luo, PharmD [address] [place] [address] 03/10/2025 7:50 AM CDT Telemedicine Digestive Care at [facility] [address] [facility] [address] [place], [place] [address] Teri Ruth, BIT SHARPENER OPERATOR, SODA JERKER [address] [place], [place] [phone] documented as of this encounter Visit Diagnoses Diagnosis Left sided colitis with rectal bleeding (HRC)- Primary Left sided ulcerative (chronic) colitis Hematochezia Blood in stool Diarrhea, unspecified type Tenesmus (rectal) Other symptoms involving digestive system documented in this encounter Care Teams Investigation Specialist Relationship Specialty Start Date End Date Sheeba Castillo, BIT SHARPENER OPERATOR, SODA JERKER [address] [place], [place] [address] [address] PCP - General Nurse Practitioner 07/20/16 documented as of this encounter
--- OUTSIDE RECORDS SUMMARY | 2024-12-29 06:37 | XMS_ITS | Encounter Summary ---
Author Organization [facility] Address [address] [place] [address] Care Team Providers Care Masking Machine Operator Name Role Phone Sheeba Castillo APRN, CNP Primary Care Provid er Reason for Visit * Reason Comments Outside Records on File Encounter Details Date Type Department Care Team (Late st Contact Info) Description 12/08/2024 Telephone Digestive Care at [facility] [place] at [address] 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 * Eusebio Haines MD - 12/09/2024 7:36 AM CDT Faxed laboratory results reviewed. Normal white blood cell count, normal hemoglobin, normal platelet count, no left shift on the differential, normal electrolytes, normal glucose, normal creatinine, normal albumin, normal liver enzymes including alkaline phosphatase, normal total bilirubin, vedolizumab level still pending. The vedolizumab level is a factor in the making going for whether this patient stays on her currentvedolizumab infusions or if we need to switch to another medication. Please arrange for the vedolizumab level to be faxed to us once it has been finalized. * Beth Nichols RN - 12/08/2024 12:57 PM CDT Labs from [facility] received via fax. Placed in Dr. Haines's mailbox. documented in this encounter Plan of Treatment Upcoming Encounters Date Type Department Care Team (Late st Contact Info) Description 01/09/2025 9:00 AM CDT Appointment [facility] [address] [phone] Kiley Luo, PharmD [address] [place] [address] 03/10/2025 7:50 AM CDT Telemedicine Digest[facility] at [facility] [place] [id number] [place] [address] [place] [address] Teri Ruth, ASSISTANT VICE PRESIDENT, SHELL MOLD BONDING MACHINE OPERATOR [address] [place], [place] [phone] documented as of this encounter Visit Diagnoses Not on filedocumented in this encounter Care Teams Masking Machine Operator Relationship Specialty Start Date End Date Sheeba Castillo APRN, SHELL MOLD BONDING MACHINE OPERATOR [address] [place], [place] [address] PCP - General Nurse Practitioner 07/20/16 documented as of this encounter
--- OUTSIDE RECORDS SUMMARY | 2024-12-29 06:37 | XMS_ITS | Clinical Summary ---
Author Organization [employer] [facility] Address [address] [place] [address] Care Team Providers Care Cotton Sampler Name Role Phone Noemi Abernathy MD Primary Care Provider + Noemi Abernathy MD Unavailable [phone] Medications No known medications Active Problems No known active problems Social History Tobacco Use Types Packs/Day Years Used Date Smoking Tobacco: Never Assessed Comments Unknown Sex and Gender Information Value Date Recorded Sex Assigned at Not on file Legal Sex Female 7:45 PM CDT Gender Identity Not on file Sexual Orientation Not on file Obstetrics History Plan of Treatment Health Maintenance Due Date Last Done Comments Tetanus booster 1988 Depression screening for age 12+ 1989 HIV for age 15-65 1992 BMI (ht and wt on same day) for age 18+ 1995 Hepatitis C screening for ag e 18-79 1995 Hepatitis B series for 19+ ( 1 of 3 - 19+ 3-dose series) 1996 Colonoscopy through age 75 2022 Lipids for age 45-75 2022 Mammogram for age 45-75 2022 Pap test for age 21-65 02/12/2024 02/11/2021 Influenza Vaccine (#1) 2025 COVID-19 vaccine series Completed 03/27/20 24, 04/21/2022, 03/23/2021 Pneumococcal series for age 6-49 Aged Out No longer eligible b ased on patient's age to complete this topic Procedures Procedure Name Priority Date/Time Associated Diagnosis Comments HPV HIGH RISK Routine 02/11/2021 12:00 PM CDT from Last 3 Months or Most Recently Relevant to Health Maintenance Results * HPV HIGH RISK (02/11/2021 12:00 PM CDT) TYPE 16 Negative Negative 02/15/2021 5:05 AM CDT [facility] TYPE 18 Negative Negative 02/15/2021 5:05 AM CDT [facility] TRAL LABOR[facility]ORY OTHER HIGH RISK TYPES Negative Negative 02/15/2021 5:05 AM CDT [facility] TRA LABORATORY Other (Cervical/Vagina l) 02/11/2021 12:00 PM CDT 02/14/2021 7:24 AM CDT Narrative [facility] - 02/15/2021 5:05 AM CDT HPV types 16, 18, 31, 33, 35, 39, 45, 51, 52, 56, 58, 59, 66 and 68 DNA were undetectable or below the pre-set threshold. Methodology: Lul Robyn 4800 HPV Test us Noemi Abernathy MD 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 Final Re sult [facility] [address] [place] [address], from Last 3 Months or Most Recently Relevant to Health Maintenance Insurance [facility] SHARED SERVICES [facility] SHARED SERVICES Care Teams Cotton Sampler Relationship Specialty Start Date End Date Noemi Abernathy MD [address] [place] [address] PCP - General Family Practice 04/08/24 Noemi Abernathy MD [address] [place] [address] Family Practice 04/08/24
--- OUTSIDE RECORDS SUMMARY | 2024-12-29 06:37 | XMS_ITS | Encounter Summary ---
Author Organization [employer] Address [address] [place] [address] Care Team Providers Care Portal Developer Name Role Phone Sheeba Castillo APRN, CNP Primary Care Provid er Encounter Details Date Type Department Care Team (Latest Contact Info) Description 12/03/2024 Orders Only [facility] DEPARTMENT Provider, MD Angel[place] [address] Social History Tobacco Use Types Packs/Day Years [...] Sex Assigned at Female 05/09/2021 7:19 PM RIFFLER TENDER Legal Sex Female 11:31 AM CDT Gender Identity Female 05/09/2021 7:19 PM RIFFLER TENDER Sexual Orientation Straight 05/09/2021 7: 19 PM RIFFLER TENDER 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 Not on file Not on file documented as of this encounter Plan of Treatment Upcoming Encounters Date Type Department Care Team (Late st Contact Info) Description 01/09/2025 9:00 AM CDT [facility]ointment [facility] [address] [phone] Kiley Luo, PharmD [address] [place] [address] 03/10/2025 7:50 AM CDT Telemedicine Digestive Care at [facility] and [facility] [place] [address] [address] [address] [place], [place] [phone] Teri Ruth, JUNIOR ADMINISTRATIVE ASSISTANT, DE ALCOHOLIZER [address] [place], [place] [address] documented as of this encounter Procedures Procedure Name Priority Date/Time Associated Diagnosis Comments LABORATORY REPORT 12/03/2024 documented in this encounter Results * LABORATORY REPORT (12/03/2024) us Interface Provider MD DUMMY/OTHER/AR Final Resu lt documented in this encounter Visit Diagnoses Not on filedocumented in this encounter Care Teams Portal Developer Relationship Specialty Start Date End Date Sheeba Castillo APRN, DE ALCOHOLIZER [address] [place] [address] [place] Dinh [address] PCP - General Nurse Practitioner 07/20/16 documented as of this encounter
--- OUTSIDE RECORDS SUMMARY | 2024-12-29 06:37 | XMS_ITS | Encounter Summary ---
Author Organization [employer] Address [address] [place] [address] Care Team Providers Care Mill Work Name Role Phone Sheeba Castillo APRN, CNP Primary Care Provid er Encounter Details Date Type Department Care Team (Late st Contact Info) Description 10/03/2024 Results Follow-Up Endoscopy at [facility] Specialty [place] at [address] 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 [address] [address] [address] [place] [address] Teri Ruth, BOILERMAKER PIPE FITTER, SALMON GILLNET VESSEL OPERATOR [address] [place], [place] [address] documented as of this encounter Visit Diagnoses Not on filedocumented in this encounter Care Teams Mill Work Relationship Specialty Start Date End Date Sheeba Castillo, BOILERMAKER PIPE FITTER, SALMON GILLNET VESSEL OPERATOR [address] [place] [phone] PCP - General Nurse Practitioner 07/20/16 documented as of this encounter
--- OUTSIDE RECORDS SUMMARY | 2024-12-29 06:37 | XMS_ITS | Encounter Summary ---
Author Organization [employer] Address [address] [place] [address] Care Team Providers Care Senior Firewall Engineer Name Role Phone Sheeba Castillo APRN, CNP Primary Care Provid er Reason for Visit * Reason Comments Refill OSCIMIN 0.125 MG sub lingual tablet [Pharmacy Med Name: OSCIMIN 0.125 MG SUBL 0.125 Tablet] Encounter Details Date Type Department Care Team (Late st Contact Info) Description 10/23/2024 Refill Digestive Care at [facility] Specialty Center at [facility] [address] [place] [address]. 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 (unchanged) -> Refill x 12 months (until due for an office visit) -> Calculate the quantity and number of refills manually. Last qualifying visit: 08/04/2024 (in [facility] with TERI SPAIN) Next scheduled visit: None [facility] [employer] Embedded Refills, Reference: [id number], 10/23/2024 9:02:03 AM CDT, Pool: GI NURSING-PN ([id number]) documented in this encounter Plan of Treatment Upcoming Encounters Date Type Department Care Team (Late st Contact Info) Description 01/09/2025 9:00 AM CDT Appointment [facility] [place] [address] [phone] Kiley Luo, PharmD [address] [place], [place] [address] 03/10/2025 7:50 AM CDT Telemedicine Digestive Care at [facility] and Specialty [facility] [address] [facility] [address] [place], [place] [phone] Teri Spain, DOCUMENT IMPROVEMENT SPECIALIST, CONSUMER SAFETY OFFICER [address] [place], [place] [address] documented as of this encounter Visit Diagnoses Diagnosis Irritable bowel syndrome, unspecified type documented in this encounter Care Teams Senior Firewall Engineer Relationship Specialty Start Date End Date Sheeba Castillo APRN, CONSUMER SAFETY OFFICER [address] [place] [address] PCP - General Nurse Practitioner 07/20/16 documented as of this encounter
--- OUTSIDE RECORDS SUMMARY | 2024-12-29 06:38 | XMS_ITS | Encounter Summary ---
Author Organization [employer] Address [address] [place] [address] Care Team Providers Care Felt Pad Cutter Name Role Phone Sheeba Castillo APRN, CNP Primary Care Provid er Encounter Details Date Type Department Care Team (Late st Contact Info) Description 07/22/2016 Correspondence [facility] [address] [place] [address] Fernanda Lancaster, POPEYEC [address] [place], [place] [phone] RETURN TO WORK AUTH Social History Tobacco Use Types Packs/Day Years Used Date Smoking Tobacco: Former Cigarettes 0.3 15 1 06/25/1999 - 04/25/2015 Smokeless Tobacco: Never Alcohol Use Standard Drinks/Week Comments Yes 0 (1 standard drink = 0.6 oz pur e alcohol) rarely Comments No Sex and Gender Information Value Date Recorded Sex Assigned at Female 05/09/2021 7:19 PM APPLIANCE PAINTER AND REFINISHER Legal Sex Female 11:31 AM CDT Gender Identity Female 05/09/2021 7:19 PM APPLIANCE PAINTER AND REFINISHER Sexual Orientation Straight 05/09/2021 7: 19 PM APPLIANCE PAINTER AND REFINISHER 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 [address] [facility] [address] [place], [place] [phone] Teri Ruth APRN, AESTHETICIAN [address] [place] [address] documented as of this encounter Visit Diagnoses Not on filedocumented in this encounter Care Teams Felt Pad Cutter Relationship Specialty Start Date End Date Sheeba Castillo APRN, AESTHETICIAN [address] [place] [address] PCP - General Nurse Practitioner 07/20/16 documented as of this encounter
--- OUTSIDE RECORDS SUMMARY | 2024-12-29 06:38 | XMS_ITS | Encounter Summary ---
Author Organization [employer] Address [address] [place] [address] Care Team Providers Care Power Plant Supervisor Name Role Phone Sheeba Castillo APRN, CNP Primary Care Provid er Encounter Details Date Type Department Care Team (Latest Contact Info) Description 12/09/2024 Orders Only [facility] DEPARTMENT Provider, MD [place] [address] Social History Tobacco Use Types Packs/Day Years [...] Sex Assigned at Female 05/09/2021 7:19 PM SANDBLASTER GLASS Legal Sex Female 11:31 AM CDT Gender Identity Female 05/09/2021 7:19 PM SANDBLASTER GLASS Sexual Orientation Straight 05/09/2021 7: 19 PM SANDBLASTER GLASS 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 Not on file Not on file documented as of this encounter Plan of Treatment Upcoming Encounters Date Type Department Care Team (Late st Contact Info) Description 01/09/2025 9:00 AM CDT Appointment [facility] [address] [phone] Kiley Luo, PharmD [address] [place] [address] 03/10/2025 7:50 AM CDT Telemedicine Digestive Care at [facility] and [facility] [place] [address] [address] [address] [place], [place] [phone] Teri Ruth, SECURITY RESEARCHER, SOIL CONSERVATION TECHNICIAN [address] [place], [place] [address] documented as of this encounter Procedures Procedure Name Priority Date/Time Associated Diagnosis Comments LABORATORY REPORT 12/09/2024 documented in this encounter Results * LABORATORY REPORT (12/09/2024) us Interface Provider MD DUMMY/OTHER/AR Final Resu lt documented in this encounter Visit Diagnoses Not on filedocumented in this encounter Care Teams Power Plant Supervisor Relationship Specialty Start Date End Date Sheeba Castillo APRN, SOIL CONSERVATION TECHNICIAN [address] [place] [address] MAGDALENA Dinh [address] PCP - General Nurse Practitioner 07/20/16 documented as of this encounter
--- OUTSIDE RECORDS SUMMARY | 2024-12-29 06:38 | XMS_ITS ---
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 Past Treatment and Therapy Plans No past plan information found. 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
--- OUTSIDE RECORDS SUMMARY | 2024-12-29 06:38 | XMS_ITS | Encounter Summary ---
Author Organization [employer] Address [address] [place] [address] Care Team Providers Care Electrical Worker Name Role Phone Sheeba Castillo APRN, CNP Primary Care Provid er Reason for Referral * Consult/Transfer Care (Routine) - Work Comp Specialty Diagnoses / Procedures Referred By Contac t Referred To Contact Diagnoses Left sided colitis with rectal bleeding (HRC) Hematochezia Diarrhea, unspecified type Eusebio Haines MD [address] [place] [address] Phone: tel: fax: Referral ID Status Reason Start Date Expiration Date V isits Requested Visits Authorized [id number] Work Comp 12/21/2024 03/22/2026 1 1 Scheduling Instructions Your provider has recommended an appointment with one of our Medication Management Pharmacists. This involves a review of your medications to ensure they are safe, effective, and are helping you reach your health goals. You may call [phone] for help scheduling your appointment. We suggest you call your health insurance company about your coverage and benefits for this appointment. Question Answer Appointment Urgency? Non-Urgent Reason for visit? Ulcerative colitis: Please assist in getting patient approved and started on treatment with Skyrizi (vedolizumab treatment failure). Desired Service Location? 7130 Desired Pharmacist? 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 What is the turnaround time for this consultation? More specifically, how long the take for our [place] pharmacy staff to get the consult, start the process of medication transition/management and reaching out to the patient to let her know? * Eusebio Haines MD - 12/21/2024 3:26 PM CDT MTM Pharmacy consult placed. Response sent to patient via her [employer] account letting her know of the consultation and and to transition to [facility] (if her health plan covers it). documented in this encounter Plan of Treatment Upcoming Encounters Date Type Department Care Team (Late st Contact Info) Description 01/09/2025 9:00 AM CDT Appointment [facility] [address] [facility] [address] [place] [phone] Kiley Luo, PharmD [address] [place] [address] 03/10/2025 7:50 AM CDT Telemedicine Digestive Care at [facility] [address] [address] [address] [place], [place] [phone] Teri Ruth CORRECTIONAL LIEUTENANT, PARTS COUNTER REPRESENTATIVE [address] [place], [place] [address] Scheduled Referrals Name Type Priority Associated Diagnoses Orde r Schedule SPECIALTY PHARMACY-MEDICATION THERAPY MGMT-ADULT/PEDS Referral Routine Left sided colitis with rectal bleeding (HRC) Hematochezia Diarrhea, unspecified type Ordered: 12/21/2024 documented as of this encounter Visit Diagnoses Diagnosis Left sided colitis with rectal bleeding (HRC)- Primary Left sided ulcerative (chronic) colitis Hematochezia Blood in stool Diarrhea, unspecified type documented in this encounter Care Teams Electrical Worker Relationship Specialty Start Date End Date Sheeba Castillo APRN, PARTS COUNTER REPRESENTATIVE [address] [facility] [place] [id number] PCP - General Nurse Practitioner 07/20/16 documented as of this encounter
--- OUTSIDE RECORDS SUMMARY | 2024-12-29 06:38 | XMS_ITS | Encounter Summary ---
Author Organization [employer] Address [address] [place] [address] Care Team Providers Care Rectifying Operator Name Role Phone Sheeba Castillo APRN, CNP Primary Care Provid er Reason for Visit * Reason Comments Provider Orders Encounter Details Date Type Department Care Team (Late st Contact Info) Description 09/02/2024 Telephone Digestive Care at 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 Cristina is aware that patient can indeed have her infusion today per provider TH. Deputy Chief Executive was able to print and fax over to Cristina RN last visit note with TH from 08/04/24 to [phone]. Received confirmation of faxed received on 09/02/24 at 12:47 pm. * Kinga Burns RN - 09/02/2024 12:15 PM CDT Lisa MARTIN is calling: -Confirming if it's ok to treat patient today? -Also needs copy of patient's latest office visit sent over. Routing to nursing team. 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 Patient as stitch in this area. Infusion nurse needs to knowif they can proceed with infusion today or if they need to hold and if they are holding for how long. documented in this encounter Plan of Treatment Upcoming Encounters Date Type Department Care Team (Late st Contact Info) Description 01/09/2025 9:00 AM CDT Appointment [facility] [address] [address] Kiley Luo, PharmD [address] [place] [address] 03/10/2025 7:50 AM CDT Telemedicine Digestive Care at [facility] [place] [address] [facility] [address] [place] [address] Teri Ruth APRN, AUTOMOTIVE SALES EXECUTIVE [address] [facility] [place], [place] [address] documented as of this encounter Visit Diagnoses Not on filedocumented in this encounter Care Teams Rectifying Operator Relationship Specialty Start Date End Date Sheeba Castillo APRN, AUTOMOTIVE SALES EXECUTIVE [address] [facility] [place] [id number] PCP - General Nurse Practitioner 07/20/16 documented as of this encounter
--- OUTSIDE RECORDS SUMMARY | 2024-12-29 06:38 | XMS_ITS | Encounter Summary ---
Author Organization [employer] Address [address] [place] [address] Care Team Providers Care Tavern Keeper Name Role Phone Sheeba Castillo APRN, CNP Primary Care Provid er Encounter Details Date Type Department Care Team (Late st Contact Info) Description 07/22/2016 Correspondence [facility] [address] [place] [address] Fernanda Lancaster, POPEYEC [address] [place], [place] [phone] RETURN TO WORK AUTH Social History Tobacco Use Types Packs/Day Years Used Date Smoking Tobacco: Former Cigarettes 0.3 15 1 06/25/1999 - 04/25/2015 Smokeless Tobacco: Never Alcohol Use Standard Drinks/Week Comments Yes 0 (1 standard drink = 0.6 oz pur e alcohol) rarely Comments No Sex and Gender Information Value Date Recorded Sex Assigned at Female 05/09/2021 7:19 PM LAY OUT INSPECTOR Legal Sex Female 11:31 AM CDT Gender Identity Female 05/09/2021 7:19 PM LAY OUT INSPECTOR Sexual Orientation Straight 05/09/2021 7: 19 PM LAY OUT INSPECTOR 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 [address] [facility] [address] [place], [place] [phone] Teri Ruth APRN, SWING TYPE LATHE OPERATOR [address] [place] [address] documented as of this encounter Visit Diagnoses Not on filedocumented in this encounter Care Teams Tavern Keeper Relationship Specialty Start Date End Date Sheeba Castillo APRN, SWING TYPE LATHE OPERATOR [address] [place] [address] PCP - General Nurse Practitioner 07/20/16 documented as of this encounter
--- OUTSIDE RECORDS SUMMARY | 2024-12-29 06:38 | XMS_ITS | Clinical Summary ---
Author Organization [facility] Address [address] [place] [address] Care Team Providers Care Wallpaper Hanger Helper Name Role Phone Unavailable Primary Care Provider Unavailabl e Source Comments Patient records contain information from all sites at [facility]. For routine questions regarding patient records, call [phone] during business hours, M-F 8:00 AM - 5:00 PM Central Time. Record requests for emergency care only can be directed to [phone] at any time.[facility] Allergies No known active allergies Medications calcium carbonate-mag hydroxid 1,000-200 mg tablet,chewable Chew. 2 Active triamcinolone (KENALOG) 0.1 % ointment Apply topically. 0 Active multivitamin-Ca- iron-minerals tablet Take 1 tablet by mouth daily. 2 Active cholestyramine-m ineral oil in triple paste 5-5 % as needed. 0 Active norethindrone-et hinyl estradiol (ORTHO-NOVUM 1-35/NORTREL 1-35) 1 mg-35 mcg per tablet TAKE ONE TABLET BY MOUTH ONE TIME DAILY CONTINOUSLY. 0 Active budesonide (ENTOCORT EC) 3 mg 24 hr capsule Take 9 mg by mouth. 0 Active dicyclomine (BENTYL) 20 mg tablet TAKE 1 TABLET BY MOUTH 4 TIMES DAILY NEEDED 8 Active hydrocortisone (CORTENEMA) 100 mg/60 mL enema Insert 100 mg into the rectum. 0 Active hydrocortisone (ANUSOL-HC) 25 mg suppository Insert 25 mg into the rectum. 0 Active mesalamine (CANASA) 1,000 mg suppository Insert 1,000 mg into the rectum. 0 Active hyoscyamine (LEVSIN) 0.125 mg SL tablet Take 0.125 mg by mouth. 0 Active phentermine (FASTIN) 30 mg capsule Take 30 mg by mouth. Active phentermine (ADIPEX-P) 37.5 mg capsule Take 37.5 mg by mouth. 9 Active predniSONE (DELTASONE) 10 mg tablet 4 tabs daily for 2 wk, 3 tabs daily for 1 wk, 2 tabs daily for 1 wk, then decrease by 1/2 tab weekly until done 0 Active triamterene-hydr oCHLOROthiazide (MAXZIDE-25) 37.5-25 mg per tablet TAKE 1 TABLET BY MOUTH DAILY. 9 Active LORazepam (ATIVAN) 0.5 mg tablet TAKE 1 TO 2 TABLETS BY MOUTH EVERY 4 HOURS NEEDED FOR NAUSEA/VOMITI NG 2 Active naproxen (NAPROSYN) 250 mg tablet Twice A Day Active loratadine (CLARITIN) 10 mg tablet Daily Active doxylamine 25 mg tablet Bedtime Active azelastine (ASTELIN) 137 mcg/spray (0.1 %) nasal spray 2 Active albuterol 90 mcg/actuation inhaler 2 Active magnesium 200 mg tablet Take 400 mg by mouth every morning before breakfast. Active Active Problems Problem Noted Date Diagnosed Date Malignant Neoplasm Of Breast Upper Inner Quadrant Female Left 05/31/2021 Cancer Staging:Pathologic stage from 05/10/2021:Stage IA(pT2, pN0(sn), cM0, G2, ER+, IL+, HER2-) - Unsigned Pathologic stage from 05/10/2021:Stage IA(pT1a, pN0(sn), cM0, G1, ER-, IL-, HER2-) - Unsigned Social History Tobacco Use Types Packs/Day Years Used Date Smoking Tobacco: Never Assessed Humiliation, Afraid, Rape, and Kick questionnair e Answer Date Recorded Within the last year, have y ou been afraid of your partner or ex-partner? No 10/11/2021 Within the last year, have y ou been humiliated or emotionally abused in other ways by your partner or ex-partner? No Within the last year, have y ou been kicked, hit, slapped, or otherwise physically hurt by your partner or ex-partner? No 10/11/2021 Within the last year, have y ou been raped or forced to have any kind of sexual activity by your partner or ex-partner? No 10/11/2021 Hunger Vital Sign Answer Date Recorded Within the past 12 months, y ou worried that your food would run out before you got the money to buy more. Never true 10/12/19 22 Within the past 12 months, t he food you bought just didn't last and you didn't have money to get more. Never true 10/11/2021 PRAPARE - Transportation Answer Date Re corded In the past 12 months, has l ack of transportation kept you from medical appointments or from getting medications? No 09/23 In the past 12 months, has l ack of transportation kept you from meetings, work, or from getting things needed for daily living? No 10/11/2021 Housing Stability Vital Sign Answer Farhat e Recorded In the last 12 months, was t here a time when you were not able to pay the mortgage or rent on time? No 10/11/2021 In the last 12 months, how many places have you lived? 1 10/11/2021 In the last 12 months, was t here a time when you did not have a steady place to sleep or slept in a jail (including now)? No 10/11/2021 Education Answer Date Recorded What is the highest level of school you have completed or the highest degree you have received? Associate degree: occupational, technical, or vocational program 10/11/2021 Comments Unknown Sex and Gender Information Value Date Recorded Sex Assigned at Female 10/11/2021 8:54 PM CDT Legal Sex Female 11:30 AM CIRCULATION SALES REPRESENTATIVE Gender Identity Female 10/11/2021 8:54 PM CDT Sexual Orientation Straight 10/11/2021 8: 54 PM CDT Last Filed Vital Signs Vital Sign Reading Time Taken Comments Blood Pressure 123/59 10/07/2021 7:55 AM CDT Pulse 97 10/07/2021 7:55 AM CDT Temperature 36.3 C (97.4 F) 11/03/2021 4:03 PM CDT Respiratory Rate - - Oxygen Saturation - - Inhaled Oxygen Concentration - - Weight 98.8 kg (217 lb 13 oz) 11/03/2021 4:03 PM CDT Height - - Body Mass Index - - Plan of Treatment Upcoming Encounters Date Type Department Care Team (Latest Contact Info) Description 12/30/2024 4:00 PM CDT Clinical Communication Central Appointment Office in [address] [phone] Health Maintenance Due Date Last Done Comments CT Colonography 1977 Cervical/Vaginal Cancer Screening 1977 Cologuard 1977 Colonoscopy 1977 Colorectal Cancer Screening 1977 FIT 1977 Fasting Glucose for Diabetes Screening 1977 HIV Screening 1977 Hepatitis C Screening 1977 Lipid (Cholesterol) Screening 1977 Pneumococcal vaccine (0-49 years) (1 of 2 - PCV) 1996 Mammogram 05/10/2022 05/10/2021, 04/25, 03/29/2021, Additional history exists COVID-19 Vaccine ( - season) 2024 03/20/2023, 04/21/2022, 03/23/2021, Additional history exists Depression Screening (Annual PHQ-2) 06/25/2024 Influenza Vaccine (#1) 2025 3, 2022, 03/23/2021, Additional history exists DTaP,Tdap,and Td Vaccines (3 - Td or Tdap) 02/11/2031 02/11/2021, 07/04/2010, 11/30/2003 Hepatitis B Vaccines Completed 02/08/2006, 01/02/2002, 08/09/2001 HPV Vaccines Aged Out No longer eligi ble based on patient's age to complete this topic IPV Vaccines Aged Out No longer eligi ble based on patient's age to complete this topic Procedures Procedure Name Priority Date/Time Associated Diagnosis Comments OUTSIDE MG MAMMOGRAM Routine 05/10/2021 1:50 PM CIRCULATION SALES REPRESENTATIVE from Last 3 Months or Most Recently Relevant to Health Maintenance Results * BREAST SURGICAL SPECIMEN-Outside Mammogram (05/10/2021 1:50 PM CIRCULATION SALES REPRESENTATIVE) Narrative [facility] - 05/25/2021 4:38 PM CIRCULATION SALES REPRESENTATIVE This order has been created and auto-finalized to support the import of outside images. If available, original interpretation can be found on the Media Tab in Chart Review, in Document Viewer, or as an image in QREADS. If a re-interpretation or overread is required please follow defined workflow. us Provider Not In System IMG BI PROCEDURES Final R esult [facility] NA from Last 3 Months or Most Recently Relevant to Health Maintenance Insurance [facility] "
--- OUTSIDE RECORDS SUMMARY | 2024-12-29 06:38 | XMS_ITS | Encounter Summary ---
Author Organization [employer] Address [address] [place] [address] Care Team Providers Care College Advisor Name Role Phone Sheeba Castillo APRN, CNP Primary Care Provid er Reason for Visit * Reason Comments ORDERS Encounter Details Date Type Department Care Team (Late st Contact Info) Description 12/08/2024 Telephone Digestive Care at [facility] at [address] [place], [place] [id number] Eusebio Haines MD [address] [place] [address] [id number] ORDERS Social History Tobacco Use Types Packs/Day Years [...] Sex Assigned at Female 05/09/2021 7:19 PM DIE TURNER Legal Sex Female 11:31 AM CDT Gender Identity Female 05/09/2021 7:19 PM DIE TURNER Sexual Orientation Straight 05/09/2021 7: 19 PM DIE TURNER Occupation Industry Job Start Date Job End Date [employer] Not on file Not on file Not on file documented as of this encounter Nursing Notes * Monica Jolley, RN - 12/08/2024 3:14 PM CDT Fuchsia created with requested stool samples, faxed ton [facility]. Confirmation received. Placed in nursing folder documented in this encounter Plan of Treatment Upcoming Encounters Date Type Department Care Team (Late st Contact Info) Description 01/09/2025 9:00 AM CDT Appointment [facility] [address] [phone] Kiley Luo, PharmD [address] [place], [place] [id number] 03/10/2025 7:50 AM CDT Telemedicine Digestive Care at [facility] [address] [address] [address] [place], [place] [id number] Teri Ruth ARCHITECT INTERN, MORTGAGE PROCESSING MANAGER [address] [place] [address] documented as of this encounter Visit Diagnoses Not on filedocumented in this encounter Care Teams College Advisor Relationship Specialty Start Date End Date Sheeba Castillo APRN, MORTGAGE PROCESSING MANAGER [address] [place] [address] [place] [address] PCP - General Nurse Practitioner 07/20/16 documented as of this encounter
--- OUTSIDE RECORDS SUMMARY | 2024-12-29 06:38 | XMS_ITS | Encounter Summary ---
Author Organization [facility] Address [address] [place] [address] Care Team Providers Care Pump Room Operator Name Role Phone Sheeba Castillo APRN, CNP Primary Care Provid er Reason for Visit * Reason Comments Critical Lab Result Encounter Details Date Type Department Care Team (Late st Contact Info) Description 12/09/2024 Telephone [facility] [address] 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 They are able to use current order. Pt was updated below. Sending to Dr. Haines as FYI * Chandrika Simms RN - 12/09/2024 5:43 PM CDT Clinician: Route to bead trimmer Patient/care technician request: [facility] called to report that the Stool Sample, GI pathogen panel by PCR - Incorrect- Collected on wrong media. The cup had a preservative. Needs to be recollected in a sterile urine cup. Specific Request: Please resend stool sample in correct medium. [facility] phone number [phone] 6:00 PM Outbound call to [facility]. Spoke to Demar. He stated that he will have Abdule call this RN with the information when he returns to the lab this evening. 6:06 PM Inbound call from [facility] Wilmar Nealdff- Correct GI parasite panel by PCR- Correct GI pathogen panel by PCR - Incorrect- Collected on wrong media. The cup had a preservative. Needs to be recollected in a sterile urine cup. 6:15 PM outbound call to patient Situation/Background (brief explanation of current symptoms/situation): No worsen symptoms since she was seen in the clinic yesterday. Patient informed that the stool sample needs to be re-collected. Advised patient/caller to call back [facility] if there are further questions or concerns or to be seen if situation becomes emergent. The CareLine is available 15/01. Reviewed pertinent medical history (as relates to the call): Yes 6:[address] [facility]. 6:[address] [facility]. 6:[address] [facility] returned paged. 1) Advised to send the encounter to clinic for follow up. Chandrika Falk RN Careline 6:54 PM 12/09/2024 * Katty Solis RN - 12/09/2024 5:21 PM CDT Critical/abnormal lab [facility] to [facility] [place] [facility] calling with verbal report only - not on same charting system and unable to fax anything Phone number for Lab calling the result:[phone] Name of lab result being called: Stool Sample Date lab drawn: 12/09/2024 Lab result being reported: [facility] lab reports 2 stool cx dropped off one in correct media and other is not- reports the correct media should be a sterile cup(UA) OK) or carry Markos media Ordering Clinician: Luke Bourne MD Plan: CL Lead- Encounter routed to appropriate CareLine pool for critical lab management by CareLine RN. Katty Coulter RN, [facility] 5:29 PM 12/09/2024 documented in this encounter Plan of Treatment Upcoming Encounters Date Type Department Care Team (Late st Contact Info) Description 01/09/2025 9:00 AM CDT Appointment [facility] [address] [phone] Kiley Luo, PharmD [address] [place] [address] 03/10/2025 7:50 AM CDT Telemedicine Digestive Care at [facility] and Specialty [facility] [address] [facility] [address] [place] [address] Teri Ruth, DEPUTY MANAGER, STOCK HANDLER [address] [place], [place] [address] documented as of this encounter Visit Diagnoses Not on filedocumented in this encounter Care Teams Pump Room Operator Relationship Specialty Start Date End Date Sheeba Castillo, DEPUTY MANAGER, STOCK HANDLER [address] [place] [address] PCP - General Nurse Practitioner 07/20/16 documented as of this encounter
--- OUTSIDE RECORDS SUMMARY | 2024-12-29 06:38 | XMS_ITS | Encounter Summary ---
Author Organization [employer] Address [address] [place] [address] Care Team Providers Care Medicare Compliance Auditor Name Role Phone Sheeba Castillo APRN, CNP Primary Care Provid er Reason for Visit * Reason Comments RESULTS, TEST Encounter Details Date Type Department Care Team (Late st Contact Info) Description 12/11/2024 Telephone Digestive Care at [facility] at [address] 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 Infectious stool studies negative. These faxed data initialed and submitted into my office out box with request for both of them to beuploaded into media section of [employer] for patient. Thanks. * Eusebio Haines MD - 12/18/2024 1:09 PM CDT Detailed message sent to the patient regarding recent blood work including vedolizumab trough levelwhich is well into the therapeutic range. Since patient is still having symptoms of active disease with objective tests that support that she does have active ulcerative colitis in spite of being on vedolizumab maximum dose, I have recommended that we change her treatment to a new medication. I have proposed Skyrizi or Tremfya with the former being preferred. Awaiting patient's response. * Monica Jolley RN - 12/15/2024 8:42 AM CDT Fax received with results from [facility]. All listed as 'not detected'. Placed in provider inbox. Still had not received vedolizumab drug level. Called [facility], this has resulted and are faxing over now. Fax received and placed records in provider inbox. * Eusebio Haines MD - 12/11/2024 12:30 PM CDT Faxed test results reviewed. This result is for Clostridium difficile toxin which is negative (not detected) other stool tests presumably still pending; also, no test result on vedolizumab drug levelwhich is the result that will serve as a linch pin for deciding whether this patient continues on her current IBD treatment plan. * Beth Nichols RN - 12/11/2024 8:13 AM CDT Test results from [facility] received via fax. Results placed in Yancy's mailbox. documented in this encounter Plan of Treatment Upcoming Encounters Date Type Department Care Team (Late st Contact Info) Description 01/09/2025 9:00 AM CDT Appointment [facility] [address] [phone] Kiley Luo, PharmD [address] [place] [address] 03/10/2025 7:50 AM CDT Telemedicine Digestive Care at [facility] and Specialty [facility] [address] [place] [address] [place], [place] [address] Teri Ruth, LINE PALLETIZER, PUBLIC AFFAIRS DIRECTOR [address] [place], [place] [address] documented as of this encounter Visit Diagnoses Not on filedocumented in this encounter Care Teams Medicare Compliance Auditor Relationship Specialty Start Date End Date Sheeba Castillo LINE PALLETIZER, PUBLIC AFFAIRS DIRECTOR [id number] [place] [address] [place] [id number] PCP - General Nurse Practitioner 07/20/16 documented as of this encounter
--- OUTSIDE RECORDS SUMMARY | 2024-12-29 06:38 | XMS_ITS | Clinical Summary ---
Author Organization [facility] Address [address] [place] [address] Care Team Providers Care Gun Number Name Role Phone Sheeba Castillo APRN, CNP Primary Care Provid er Source Comments You are receiving this document as you are listed as the primary care provider,follow-up provider, or the patient has been referred to you for consultation.This is in compliance with the Medicare andBl[facility] Systemcaid EHR Incentive Program,which states Providers who transition their patient to another setting of careor provider of care or refers their patient to another provider of care shouldprovide summary care record for each transition of care or referral. [facility] Allergies No known active allergies Medications Multiple Vitamin (MULTI-VITAMIN OR) Take 1 tablet by mouth daily (every 24 hours). 11/14/19 12 Active Calcium Carbonate Antacid 1000 MG Take by mouth. 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 0 03/10/20 22 Active dicyclomine (BENTYL) 20 MG tablet TAKE 1 TABLET BY MOUTH 4 TIMES DAILY NEEDED 360 Tablet 10/04/19 25 Active hyoscyamine (OSCIMIN) 0.125 MG sublingual tabletIndicatio ns:Irritable bowel syndrome, unspecified type PLACE 2 TABLETS (0.25 MG) UNDER TONGUE EVERY 4 HOURS NEEDED FOR CRAMPING. 60 Tablet 1 10/28/19 25 Active predniSONE (DELTASONE) 10 MG tabletIndicatio ns:Left sided colitis with rectal bleeding (HRC),Hematoche zayda,Diarrhea, unspecified type,Tenesmus (rectal) Take 4 Tablets (40 mg) by mouth daily for 7 days, THEN 3 Tablets (30 mg) daily for 7 days, THEN 2 Tablets (20 mg) daily for 7 days, THEN 1.5 Tablets (15 mg) daily for 7 days, THEN 1 Tablet (10 mg) daily for 7 days, THEN 0.5 Tablets (5 mg) daily for 7 days. 84 Tablet 12/09/19 25 025 Active triamterene-hyd rochlorothiazid e (MAXZIDE-25) 37.5-25 MG tabletIndicatio ns:Essential hypertension (HRC) Take 1 Tablet by mouth daily. 90 Tablet 3 03/15/20 20 025 Discontinued norethindrone-e th estradiol (PIRMELLA ) 1-35 MG-MCG tabletIndicatio ns:Well adult exam Take 1 Tablet by mouth daily. CONTINOUSLY 112 Tablet 3 05/21/20 20 025 Discontinued cholestyramine (QUESTRAN) 4 GM/DOSE powder MIX 4 GRAMS IN 4-8 OUNCESOF FLUID AND DRINK ONCE DAILY. MAY INCREASE TO TWICE DAILY IF NOT IMPROVING. SEPERATE AT LEAST 2 HOURS FROM OTHER MEDICATIONS. 378 g 3 08/06/19 25 025 Discontinued mesalamine (ROWASA) 4 g enema Insert 60 mL (4 g) rectally daily at bedtime. 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 difficile colitis 07/25/2016 BCC (basal cell carcinoma), leg 08/11/2011 Overview (01/27/2016): 07/09/2008: left upper thigh HTN (hypertension) 08/11/2011 Overweight 08/11/2011 Malignant melanoma of skin of trunk, except scro nleda 11/01/2010 Overview (02/14/2017): 07/09/2008, mid-abdomen ; Melanoma Trunk Resolved Problems Problem Noted Date Diagnosed Date Resolved Date JANNET (generalized anxiety disorder) 01/18/2015 11/18/2015 Situational stress 01/18/2015 6 Chronic headaches 08/11/2011 12/17/2017 Concussion 08/11/2011 12/17/2017 Overview (01/27/2016): February 2008, thrown from horse. History of tobacco use 08/11/201112/17 Hx of tonsillectomy 08/11/2011 12/15/19 17 Female genital symptoms 12/19/200404/25 Overview (02/14/2017): LW Onset: [id number] ; Pelvic Pain Female Irritable bowel syndrome 11/29/2002 Encounters Date Type Department Care Team Description 12/18/2024 E-Visit [facility] [address] [address] Eusebio Haines MD Dx: Left sided colitis with rectal bleeding (HRC) (Primary Dx) 12/11/2024 Telephone Digestive Care at [facility] at [address] [place] [address] Eusebio Haines MD RESULTS, TEST 12/10/2024 Telephone Digestive Care at [facility] at [address] [place] [address] Eusebio Haines MD RESULTS, TEST 12/09/2024 Orders Only HIM DEPARTMENT Provider, MD Angelica 12/09/2024 Telephone [facility] [address] [place], [place] [address]. [place] [address] Eusebio Haines MD Critical Lab Result 12/08/2024 10:40 AM CDT Office Visit Digestive Care at [address] [address] Eusebio Haines MD Left sided colitis with rectal bleeding (HRC) (Primary Dx); Hematochezia; Diarrhea, unspecified type; Tenesmus (rectal) 12/08/2024 Telephone Digestive Care at [facility] at [address] [place] [address] Eusebio Haines MD ORDERS 12/08/2024 Telephone Digestive Care at [address] 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 [address] Eusebio Haines MD 10/24/2024 12:20 PM CDT E-Visit Digestive Care at [address] [address] Hardyman, Teri L, MANAGER OF COMPENSATION, ENTRY LEVEL MANAGEMENT Chief Comp: QUESTIONS, GENERAL 10/23/2024 Refill Digestive Care at [facility] at [address] [place] [address] Teri Ruth APRN, CNP Refill (OSCIMIN 0.125 MG sublingual tablet [Pharmacy Med Name: OSCIMIN 0.125 MG SUBL 0.125 Tablet]) 10/03/2024 Results Follow-Up Endoscopy at [facility] at [address] [place] [address] Eusebio Haines MD 10/03/2024 Refill Digestive Care at [facility] at [address] [place] [address] Teri Ruth APRN, CNP Refill (dicyclomine (BENTYL) 20 MG tablet [Pharmacy Med Name: DICYCLOMINE HCL 20 MG TABS 20 Tablet]) 10/03/2024 Refill Digestive Care at [facility] at [address] [place] [address] Teri Ruth APRN, SIERRA Refill (OSCIMIN 0.125 MG sublingual tablet [Pharmacy Med Name: OSCIMIN 0.125 MG SUBL 0.125 Tablet]) from Last 3 Months Immunizations Immunization Administration Dates Next Due Flu Vac Preserv Free (3+yrs) 03/04/2012, 03/10/2011,03/10/2010,2008,04/17/2008,04/08/2008,04/03/2007,1 H1n1 Laiv Medimmune 2-49 Yr (Intranasal) 04/13/2009 H1n1 Miv Sanofi 3+ Yr (Injected) 06/09/2013 HepB Adult (Engerix-B, 20+ y rs, 3 dose series) 02/08/2006,01/02/2002 HepB, Unspecified Formulation 08/09/2001 Influenza IIV4 (Quadrivalent ) 0.5mL (42352) 03/31/2019,03/22/2018,03/21/2018,2016,03/23/2016,03/24/2015,03/23/2014 PCV13 (Prevnar) 05/09/2021(Deferred: Patient Ref used) PCV20 ([id number]) 03/10/2022(Deferred: Patient Refused - Patient will complete [...] Sex Assigned at Female 05/09/2021 7:19 PM ADULT DAY CARE WORKER Legal Sex Female 11:31 AM CDT Gender Identity Female 05/09/2021 7:19 PM ADULT DAY CARE WORKER Sexual Orientation Straight 05/09/2021 7: 19 PM ADULT DAY CARE WORKER 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 Not on file Not on file Last Filed Vital Signs Vital Sign Reading Time Taken Comments Blood Pressure 108/63 04/28/2024 11:25 AM ADULT DAY CARE WORKER Pulse 79 04/28/2024 11:25 AM ADULT DAY CARE WORKER Temperature 36.8 C (98.2 F) 05/12/2022 2:52 PM ADULT DAY CARE WORKER Respiratory Rate 16 04/28/2024 11:25 AM ADULT DAY CARE WORKER Oxygen Saturation 95% 04/28/2024 11:25 AM ADULT DAY CARE WORKER Inhaled Oxygen Concentration - - Weight 82.1 kg (181 lb) 12/08/2024 10:39 AM CDT Height 167.6 cm (5' 6) 04/28/2024 9:53 AM ADULT DAY CARE WORKER Body Mass Index 29.21 04/28/2024 9:53 AM ADULT DAY CARE WORKER Plan of Treatment Upcoming Encounters Date Type Department Care Team (Late st Contact Info) Description 01/09/2025 9:00 AM CDT Appointment [facility] [address] [facility] [address] [place] [phone] Kiley Luo, PharmD [address] [place], [place] [phone] 03/10/2025 7:50 AM CDT Telemedicine [facility] at [facility] [address] [facility] [address] [place], [place] [phone] Teri Ruth, MANAGER OF COMPENSATION, ENTRY LEVEL MANAGEMENT [address] [place], [place] [phone] Health Maintenance Due Date Last Done Comments Pneumococcal Vaccine (1 of 2 - PCV) 1996 Cervical Cancer Screening 12/17/20202017, 12/17/2017, 09/30/2014, Additional history exists Adult Preventive Visit 03/15/2021 , 12/19/2018, 12/17/2017, Additional history exists Diabetes Screening- (based on age and BMI) 12/19/2021 12/19/2018, 03/04/2018, 03/31/2016 Mammogram 05/25/2022 05/25/2021 (Comp leted), 01/15/2018 COVID-19 Vaccine (6 - Pfizer risk season) 2024 03/27/2024, 03/20/2023, 04/21/2022, Additional history exists Influenza Vaccine (#1) 2025 , 03/20/2023, 2022, Additional history exists Cholesterol 04/08/2025 04/08/2020, 03/27, 02/20/2019, Additional history exists Colonoscopy 04/28/2029 04/28/2024, 03/0 06/2020, 09/22/2015 DTaP/Tdap/Td Vaccine (3 - Tdap) 02/11/2031 02/11/2021, 07/04/2010, 11/30/2003 HepB Vaccine Completed 02/08/2006, 12/23, 08/09/2001 HIV Screening (Preventive Services) Completed 03/24/2015 Hep C Screening (Preventive Services) Completed 03/24/2015 Zoster/Shingles Vaccine Completed 08/03/2022, 03/14 HepA Vaccine Aged Out No longer eligi ble based on patient's age to complete this topic Hib Vaccine Aged Out No longer eligi ble based on patient's age to complete this topic IPV (Polio) Vaccine Aged Out No longe r eligible based on patient's age to complete this topic MCV4 Vaccine Aged Out No longer eligi ble based on patient's age to complete this topic Meningococcal B Vaccine Aged Out No l onger eligible based on patient's age to complete this topic Procedures Procedure Name Priority Date/Time Associated Diagnosis Comments LABORATORY REPORT 12/09/2024 LABORATORY REPORT 12/03/2024 COLONOSCOPY SCREENING Routine 04/28/2024 10:22 AM ADULT DAY CARE WORKER Left sided colitis with rectal bleeding (HRC) [...] transmitted infection) HEPATITIS C ANTIBODY, WITH REFLEX (ANTI-HCV) Routine 03/24/2015 11:39 AM CDT Routine screening for STI (sexually transmitted infection) from Last 3 Months or Most Recently Relevant to Health Maintenance Results * LABORATORY REPORT (12/09/2024) Only the most recent of2 resultswithin the time period is included. us Interface Provider MD DUMMY/OTHER/AR Final Resu lt * Colonoscopy Screening (04/28/2024 10:22 AM ADULT DAY CARE WORKER) Anatomical Region Laterality Modality Other 04/28/2024 10:2 2 AM ADULT DAY CARE WORKER Narrative 04/28/2024 10:22 AM ADULT DAY CARE WORKER Patient Name: Idania Galeana Procedure Date: 04/28/2024 [...] and oxygen saturations were monitored continuously. The [id number] was introduced through the anus and advanced [...] from the initial medication administration until the pharmacognosist assists with initial maneuvers (biopsy / polypectomy [...] GI clinic. Procedure Code(s): --- Professional --- 70914, Colonoscopy, flexible; with biopsy, single or multiple G0500, Moderate sedation services provided by the same physician or other qualified health child care center administrator performing a gastrointestinal endoscopic service that sedation supports, requiring the presence of an independent trained observer to assist in the monitoring of the patient's level of consciousness and physiological status; initial 15 minutes of intra-service time; patient age 5 years or older (additional time may be reported with 79726, as appropriate) Diagnosis Code(s): --- Professional --- D12.2, Benign neoplasm of ascending colon K63.89, Other specified diseases of intestine K51.20, Ulcerative (chronic) proctitis without complications K51.40, Inflammatory polyps of colon without complications K92.1, Melena (includes Hematochezia) K51.50, Left sided colitis without complications CPT copyright 2021 [employer]. All rights reserved. The codes documented in this report are preliminary and upon data coder operator review may be revised to meet current [...] and oxygen saturations were monitored continuously. The [id number] was introduced through the anus and advanced [...] from the initial medication administration until the pharmacognosist assists with initial maneuvers (biopsy / polypectomy [...] GI clinic. Procedure Code(s): --- Professional --- 27797, Colonoscopy, flexible; with biopsy, single or multiple G0500, Moderate sedation services provided by the same physician or other qualified health child care center administrator performing a gastrointestinal endoscopic service that sedation supports, requiring the presence of an independent trained observer to assist in the monitoring of the patient's level of consciousness and physiological status; initial 15 minutes of intra-service time; patient age 5 years or older (additional time may be reported with 33955, as appropriate) Diagnosis Code(s): --- Professional --- D12.2, Benign neoplasm of ascending colon K63.89, Other specified diseases of intestine K51.20, Ulcerative (chronic) proctitis without complications K51.40, Inflammatory polyps of colon without complications K92.1, Melena (includes Hematochezia) K51.50, Left sided colitis without complications CPT copyright 2021 [employer]. All rights reserved. The codes documented in this report are preliminary and upon data coder operator review may be revised to meet current compliance requirements. Мария Rasmussen MD 04/28/2024 11:05:58 AM This document has been electronically signed. Number of Addenda: 0 Note Initiated On: 04/28/2024 10:22 AM Endoscopy Report Teri Ruth MANAGER OF COMPENSATION, ENTRY LEVEL MANAGEMENT ET GI PROCEDURE ORDER GLORIA Final Result * Lipid Panel and Direct LDL(If Needed) (04/08/2020 3:56 PM CDT) Cholesterol 175 0 - 199 mg/dL 04/08/2020 4:39 PM CDT [facility] Triglyceride 108 <=149 mg/dL 04/08/2020 4:39 PM CDT [facility] HDL Cholesterol 59 >=40 mg/dL 0 4:39 PM CDT [facility] LDL, Calculated 94 <130 mg/dL 0 4:39 PM T [facility] Non HDL Chol, Calculated 116 mg/dL 04/08/2020 4:39 PM T [facility] Cholesterol/HDL Ratio 3.0 04/08/2020 4:39 PM T [facility] Hours Fasting 4 04/08/2020 4:39 PM T [facility] Blood Venipuncture / Unknown 04/08/2020 3:56 PM CDT 04/08/2020 3:56 PM CDT Idania Andrade MD LAB_1 Final Result [facility] [address] [place] [address], [facility] [phone] * Hgb A1C (12/19/2018 4:30 PM CDT) Hemoglobin A1C 5.5 <=5.6 % 12/20/2018 9:23 AM CDT [facility] Blood Venipuncture / Unknown 12/19/2018 4:30 PM CDT 12/19/2018 4:30 PM CDT us Idania Andrade MD LAB_1 Final Result [address] [address], [facility] * MM Mammogram Screening Bilat W CAD [...] of malignancy. Idania Andrade MD RAD STEPHANE Final Result * Pap Smear (12/17/2017 4:23 PM CDT) 12/17/2017 4:23 PM CDT Narrative PN SOFT - 12/25/2017 5:11 PM CDT FINAL GYNECOLOGICAL CYTOLOGY REPORT Pathology #: [id number] Date Obtained: 12/17/2017 Date Received: 12/18/2017 INTERPRETATION/RESULTS: [...] and false-negative reports may occur. Performed at [facility], [address] [place] [address] Idania Andrade MD LAB_1 Final Result Performing Organization Address [facility] de Phone Number PN SOFT [address] [place] [address] * HIV ANTIBODY (03/24/2015 11:39 AM CDT) HIV 1/HIV 2 Non-React Non-Reacti ve HP CONVERSION 03/24/2015 11:3 9 AM CDT 03/24/2015 2:53 PM CDT Narrative HP CONVERSION - 03/25/2015 12:01 AM CDT Performed at [facility], [address] [place] [address] Kinga Pickett APRN, CNP LAB_1 Vicenta l Result Performing Organization Address [facility] de Phone Number HP CONVERSION * Hepatitis C Antibody, with Reflex (03/24/2015 11:39 AM CDT) Hepatitis C Antibody Non-React Non-Reacti ve HP CONVERSION 03/24/2015 11:3 9 AM CDT 03/24/2015 2:53 PM CDT Narrative HP CONVERSION - 03/24/2015 9:00 PM CDT Performed at [facility], [address] [place] [address] Kinga Pickett APRN, CNP LAB_1 Vicenta l Result Performing Organization Address [facility] Co de Phone Number HP CONVERSION from Last 3 Months or Most Recently Relevant to Health Maintenance Insurance UMR UMR HP COMM HP FAMILY DENTAL Advance Directives * Full Code (Latest Code Status on File) Date Activated Date Inactivated Comments 04/30/2019 7:39 PM 05/05/2019 4:05 PM * Full Code Date Activated Date Inactivated Comments 07/25/2016 4:15 PM 07/30/2016 4:47 PM * Full Code Date Activated Date Inactivated Comments 07/12/2016 1:10 PM 07/12/2016 9:07 PM Care Teams Gun Number Relationship Specialty Start Date End Date Sheeba Castillo, RUDY, ENTRY LEVEL MANAGEMENT [address] [place] [address] PCP - General Nurse Practitioner 07/20/16
--- OUTSIDE RECORDS SUMMARY | 2024-12-29 06:38 | XMS_ITS | Encounter Summary ---
Author Organization [facility] Address [address] [place] [address] Care Team Providers Care Charge Rn Name Role Phone Sheeba Castillo APRN, CNP Primary Care Provid er Encounter Details Date Type Department Care Team (Late st Contact Info) Description 07/21/2016 Correspondence [facility] [address] [place] [address] Fernanda Lancaster, POPEYEC [address] [place], [place] [phone] DISABILITY CLAIM FAMILY MEDICAL LEAVE Social History Tobacco Use Types Packs/Day Years Used Date Smoking Tobacco: Former Cigarettes 0.3 15 1 06/25/1999 - 04/25/2015 Smokeless Tobacco: Never Alcohol Use Standard Drinks/Week Comments Yes 0 (1 standard drink = 0.6 oz pur e alcohol) rarely Comments No Sex and Gender Information Value Date Recorded Sex Assigned at Female 05/09/2021 7:19 PM RETAIL PRESENTATION SPECIALIST Legal Sex Female 11:31 AM CDT Gender Identity Female 05/09/2021 7:19 PM RETAIL PRESENTATION SPECIALIST Sexual Orientation Straight 05/09/2021 7: 19 PM RETAIL PRESENTATION SPECIALIST Occupation Industry Job Start Date Job End Date [employer] Not on file Not on file Not on file documented as of this encounter Plan of Treatment Upcoming Encounters Date Type Department Care Team (Late st Contact Info) Description 01/09/2025 9:00 AM CDT Appointment [facility] [place] [address] [place] [phone] Kiley Luo, PharmD [address] [place], [place] [address] 03/10/2025 7:50 AM CDT Telemedicine Dig[facility] at [facility] [address] [address] [address] [place], [place] [phone] Teri Ruth APRN, AIRCRAFT FUSELAGE FRAMER [address] [place] [address] documented as of this encounter Visit Diagnoses Not on filedocumented in this encounter Care Teams Charge Rn Relationship Specialty Start Date End Date Sheeba Castillo APRN, AIRCRAFT FUSELAGE FRAMER [address] [place] [address] PCP - General Nurse Practitioner 07/20/16 documented as of this encounter
--- OUTSIDE RECORDS SUMMARY | 2024-12-29 06:38 | XMS_ITS ---
Author Organization [facility] Address [address] [place] [address] Care Team Providers Care High Density Talc Coater Operator Name Role Phone Sheeba Castillo APRN, [...] (02/14/2017): 07/09/2008, mid-abdomen ; Melanoma Trunk Current Treatment and Therapy Plans No current plan information found. Past Treatment and Therapy Plans Resolved Problems Problem Noted Date Diagnosed Date Resolved Date JANNET (generalized anxiety disorder) 01/18/2015 11/18/2015 Situational stress 01/18/2015 6 Chronic headaches 08/11/2011 12/17/2017 Concussion 08/11/2011 12/17/2017 Overview (01/27/2016): February 2008, thrown from horse. History of tobacco use 08/11/201112/17 Hx of tonsillectomy 08/11/2011 12/15/19 17 Female genital symptoms 12/19/200404/25 Overview (02/14/2017): LW Onset: [id number] ; Pelvic Pain Female Irritable bowel syndrome 11/29/2002
--- OUTSIDE RECORDS SUMMARY | 2024-12-29 06:38 | XMS_ITS | Encounter Summary ---
Author Organization [facility] Address [address] [place] [address] Care Team Providers Care Senior Counsel Commercial Name Role Phone Sheeba Castillo APRN, CNP Primary Care Provid er Reason for Visit * Reason Comments RESULTS, TEST Encounter Details Date Type Department Care Team (Late st Contact Info) Description 12/10/2024 Telephone Digestive Care at [facility] at [address] 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 Haines's inbox * Beth Nichols, RN - 12/10/2024 7:56 AM CDT Labs received from [place]. Labs results placed in Yancy's mailbox. documented in this encounter Plan of Treatment Upcoming Encounters Date Type Department Care Team (Late st Contact Info) Description 01/09/2025 9:00 AM CDT Appointment [facility] [address] [phone] Kiley Luo, PharmD [address] [place], [place] [phone] 03/10/2025 7:50 AM CDT Telemedicine Digestive Care at [facility] and [facility]ty [facility] [address] [facility] [address] [place], [place] [phone] Teri Ruth APRN, FILTER PRESS PUMPER [address] [place] [address] documented as of this encounter Visit Diagnoses Not on filedocumented in this encounter Care Teams Senior Counsel Commercial Relationship Specialty Start Date End Date Sheeba Castillo APRN, FILTER PRESS PUMPER [address] [place] [address] MAGDALENA Dinh [address] PCP - General Nurse Practitioner 07/20/16 documented as of this encounter
--- OUTSIDE RECORDS SUMMARY | 2024-12-29 06:38 | XMS_ITS | Encounter Summary ---
Author Organization [employer] Address [address] [place] [address] Care Team Providers Care Leather Goods Assembler Name Role Phone Sheeba Castillo APRN, CNP Primary Care Provid er Encounter Details Date Type Department Care Team (Late st Contact Info) Description 07/22/[address] [facility] [address] [place] [address] Fernanda Lancaster, [employer] [address] [place], [place] [phone] RETURN TO WORK AUTH Social History Tobacco Use Types Packs/Day Years Used Date Smoking Tobacco: Former Cigarettes 0.3 15 1 06/25/1999 - 04/25/2015 Smokeless Tobacco: Never Alcohol Use Standard Drinks/Week Comments Yes 0 (1 standard drink = 0.6 oz pur e alcohol) rarely Comments No Sex and Gender Information Value Date Recorded Sex Assigned at Female 05/09/2021 7:19 PM BILLET CHECKER Legal Sex Female 11:31 AM CDT Gender Identity Female 05/09/2021 7:19 PM BILLET CHECKER Sexual Orientation Straight 05/09/2021 7: 19 PM BILLET CHECKER 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 [address] [facility] [address] [place], [place] [phone] Teri Ruth APRN, RESIDENTIAL WORKER [address] [place] [address] documented as of this encounter Visit Diagnoses Not on filedocumented in this encounter Care Teams Leather Goods Assembler Relationship Specialty Start Date End Date Sheeba Castillo APRN, RESIDENTIAL WORKER [address] [place] [address] PCP - General Nurse Practitioner 07/20/16 documented as of this encounter
[2024-12-29 07:00] VITALS: BP 144/90; PULSE 108; RESP 16; TEMP 37.1; O2SAT 96; BMI 29.9
--- NOTE | 2024-12-29 07:34 | CRLHL7_ITS ---
For Patients: As a result of the Century Cures Act, medical imaging exams and procedure reports are released immediately into your electronic medical record. You may view this report before your referring provider. If you have questions, please contact your health care provider. INDICATION: Left lower quadrant pain and fever for 3 days. History of ulcerative colitis COMPARISON: None TECHNIQUE: CT examination of the abdomen and pelvis was performed following the uneventful intravenous administration of 91 cc of Omnipaque 350. Thin section axial images were obtained from the lung bases through the pubic symphysis. Oral contrast was not administered. Please note that all CT scans at this facility use dose modulation, iterative reconstruction, and/or weight-based dosing when appropriate to reduce radiation dose to as low as reasonably achievable. FINDINGS: LUNG BASES: The lung bases as visualized appear normal.The heart size is normal at the lung bases. LIVER/BILIARY SYSTEM:Normal-sized liver. No focal mass. Status post cholecystectomy. Normal caliber of the biliary ductal system given reservoir phenomena from prior cholecystectomy. Similar appearance to 2021.The gallbladder is surgically absent. ADRENALS: Normal KIDNEYS, URETERS and BLADDER:The kidneys appear normal. No visible mass, calculus or hydronephrosis. The ureters and bladder as visualized appear normal. SPLEEN:Benign-appearing low-density splenic lesion unchanged. Normal-sized spleen. PANCREAS: Appears normal. RETROPERITONEUM and MESENTERY: There is no mass, adenopathy or aortic aneurysm. GASTROINTESTINAL SYSTEM: Wall thickening and inflammation involving the distal descending colon, sigmoid colon and rectum consistent with proctocolitis. Otherwise unremarkable. PELVIS: No mass, adenopathy or free fluid. OSSEOUS STRUCTURES and ABDOMINAL WALL: There is an age-appropriate appearance of the osseous structures.Small fat containing umbilical hernia which is larger than it was July 12, 2021. OTHER: No free fluid or free air. IMPRESSION: 1. There is wall thickening and inflammation involving the distal descending colon, sigmoid colon and rectum consistent with proctocolitis. GI system otherwise unremarkable. No intramural air, free air or collection. 2. Other nonacute appearing findings as above. Please review the comments. Please note that all CT scans at this facility use dose modulation, iterative reconstruction, and/or weight-based dosing when appropriate to reduce radiation dose to as low as reasonably achievable. Dictated by Wes Gtz MD @ 12/29/2024 8:28:17 AM (Electronically Signed)
[2024-12-29 07:37] LABS: Appearance Urine Clear (Clear)
[2024-12-29 07:51] LABS: Lactate* 1.1 mmol/L (0.5-1.9)
--- NOTE | 2024-12-29 07:53 | ED.GENADULT ---
HPI - General Adult General Chief complaint: Abdominal Pain Stated complaint: lower left side pain Time Seen by Provider: 12/29/24 06:37 Source: patient Mode of arrival: ambulatory Limitations: no limitations History of Present Illness HPI narrative: Patient is a estefany 49-year-old female coming in today with left lower quadrant pain that started 3 days ago. Patient has a history of ulcerative colitis and has been in a fairly consistent flare for the last 8-9 months. She has been having a lot of bloody stools and bloating. However the pain is new. She also developed a fever last night. She currently is only on prednisone 20 mg daily her previous medications were not working so they were all stopped. She denies vomiting. States that her bowel movements are few and small. Appetite is unchanged. No dysuria or urinary symptoms such as increased frequency or urgency. Last colonoscopy around April of last year. Gets her care through [facility]. Related Data Home Medications ?Medication ?Instructions ?Recorded ?Confirmed multivitamin 1 tab PO QAM 02/28/22 10/17/24 vedolizumab 300 mg intravenous 300 mg IV Q8W 05/29/22 10/17/24 solution (Entyvio) dicyclomine 10 mg capsule 10 mg PO QID PRN 05/30/22 10/17/24 hyoscyamine sulfate 0.125 mg 0.125 mg PO Q4H PRN 07/14/22 10/17/24 sublingual tablet calcium carbonate (Calcium 600) 1,200 mg PO QDAY 02/27/23 10/17/24 Previous Rx's ?Medication ?Instructions ?Recorded tamoxifen 20 mg tablet 20 mg PO QDAY #90 tabs 09/03/23 oxybutynin chloride 5 mg tablet 10 mg (2 x 5 mg) PO BID #180 tabs 07/01/24 trazodone 50 mg tablet 50 mg PO QHS #90 tabs 07/01/24 prednisone 20 mg tablet 60 mg (3 x 20 mg) PO DAILY 14 days 12/29/24 #42 tabs Allergies Allergy/AdvReac Type Severity Reaction Status Date / Time No Known Allergies Allergy Unknown Verified 12/29/24 08:24 Review of Systems Status of ROS: Reports: 10 or more systems reviewed and unremarkable except as noted in History and below [facility] Medical History Neck pain ?M54.2 - Cervicalgia (ICD-10) Lumbar back pain with radiculopathy affecting left lower extremity ?M54.16 - Radiculopathy, lumbar region (ICD-10) Visit for review of DEXA scan (02/2022) ?Z71.2 - Person consulting for explanation of examination or test findings (ICD-10) Ulcerative colitis (2017) ?K51.90 - Ulcerative colitis, unspecified, without complications (ICD-10) Malignant neoplasm of left breast (2020) ?C50.912 - Malignant neoplasm of unspecified site of left female breast (ICD-10) Malignant melanoma (2008) ?C43.9 - Malignant melanoma of skin, unspecified (ICD-10) Hypertension ?I10 - Essential (primary) hypertension (ICD-10) History of Clostridioides difficile infection (2016) ?Z86.19 - Personal history of other infectious and parasitic diseases (ICD-10) Chronic headache disorder ?R51.9 - Headache, unspecified (ICD-10) ?G89.29 - Other chronic pain (ICD-10) Chemotherapy-induced diarrhea ?K52.1 - Toxic gastroenteritis and colitis (ICD-10) ?T45.1X5A - Adverse effect of antineoplastic and immunosuppressive drugs, initial encounter (ICD-10) Hot flashes ?R23.2 - Flushing (ICD-10) Surgical History History of total hysterectomy with bilateral salpingo-oophorectomy (BSO) (05/2022) ?Z90.710 - Acquired absence of both cervix and uterus (ICD-10) ?Z90.722 - Acquired absence of ovaries, bilateral (ICD-10) ?Z90.79 - Acquired absence of other genital organ(s) (ICD-10) History of tonsillectomy (1986) ?Z90.89 - Acquired absence of other organs (ICD-10) History of removal of cyst ?Z98.890 - Other specified postprocedural states (ICD-10) History of lumpectomy of left breast (05/10/21) ?Z98.890 - Other specified postprocedural states (ICD-10) History of laparoscopic cholecystectomy (07/12/16) ?Z90.49 - Acquired absence of other specified parts of digestive tract (ICD-10) History of colonoscopy (2012) ?Z98.890 - Other specified postprocedural states (ICD-10) Family History Brother Basal cell carcinoma Maternal Grandfather Prostate cancer Social History Narrative: 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, 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[employer], no kids, has 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 Exercises 5 to 6 times per week- run/ walk, elliptical, dog walking, quarter horse Obi Non-smoker- quit 2013, 10 year 5/day rare alcohol use What is your current living situation?: I presently have a place to live Problems where you live: no known problems In the past 12 months, utilities in danger of being shut off: no In past 12 months, lack of transportation kept you from medical appts, meetings, work, or getting things needed for daily living: no In the past 12 mos, have been you worried that your food would run out before you had money to buy more?: never true In the past 12 mos, the food you bought just didn't last and you didn't have money to buy more?: never true Smoking Status: Former smoker How often do you have a drink containing alcohol: monthly or less AUDIT-C Alcohol total score: 1 Non-prescribed substance use: denies use How often does anyone, including family, friends and others, physically hurt you: never How often does anyone, including family, friends and others, insult or talk down to you: never How often does anyone, including family, friends and others, threaten you with harm: never How often does anyone, including family, friends and others, scream or curse at you: never Exam Narrative: Exam Narrative: Well-nourished well-developed patient in no acute distress. Alert and oriented. Answers questions appropriately. Mood and affect are appropriate. Thoughts are goal oriented and rational. No tangential or magical thinking noted. Patient speaks in full sentences without needing to catch her breath. HEENT: Normocephalic atraumatic. Pupils are equally round reactive to light. Extraocular muscles are intact. Conjunctivae are moist without any icterus noted. Moist mucous membranes. Cardiovascular: Heart is regular rate and rhythm. Lungs: Clear to auscultation bilaterally no wheezes rhonchi or rales are appreciated. Abdomen: Soft and nondistended with normal bowel sounds. Left lower quadrant discomfort present. No masses are appreciated. Extremities: Bilateral lower extremities are without edema. Skin: Well perfused. Slightly dry. Const: Vital Signs, click to edit/add: Vital Signs - 24 hr 12/29/24 07:00 12/29/24 08:24 Temperature 98.8 F Pulse Rate [Left P ulse Oximeter] 108 H 84 Respiratory Rate 16 16 Blood Pressure [Ri ght Upper Arm] 144/90 H 130/80 Pulse Oximetry 96 97 Oxygen Delivery Me thod Room Air Room Air Course Course ED Course: IV was established. Patient is started on 1 L of normal saline. Patient's lab work was fairly unremarkable. Her CRP was elevated at 4.8. Urinalysis was a poor specimen, dirty catch. CT scan showed wall thickening and inflammation of the distal descending colon, sigmoid colon and rectum consistent with proctocolitis. Vital Signs Vital signs: Initial Vital Signs Temperature 98.8 F 12/29/24 07:00 Temperature Source Temporal Artery Scan 12/29/24 07:00 Pulse Rate 108 H 12/29/24 07:00 Respiratory Rate 16 12/29/24 07:00 Blood Pressure 144/90 H 12/29/24 07:00 Blood Pressure Mean 108 H 12/29/24 07:00 Blood Pressure Position Sitting 12/29/24 07:00 Pulse Oximetry 96 12/29/24 07:00 Oxygen Delivery Method Room Air 12/29/24 07:00 Vital Signs Temperature 98.8 F 12/29/24 07:00 Pulse Rate 108 H 12/29/24 07:00 Respiratory Rate 16 12/29/24 07:00 Blood Pressure 144/90 H 12/29/24 07:00 Pulse Oximetry 96 12/29/24 07:00 Oxygen Delivery Method Room Air 12/29/24 07:00 Temperature 98.8 F 12/29/24 07:00 Pulse Rate 84 12/29/24 08:24 Respiratory Rate 16 12/29/24 08:24 Blood Pressure 130/80 12/29/24 08:24 Pulse Oximetry 97 12/29/24 08:24 Oxygen Delivery Method Room Air 12/29/24 08:24 Medications Administered Medications: Discontinued Medications Generic Name Dose Route Start Last Admin Trade Name Freq PRN Reason Stop Dose Admin Sodium Chloride 1,000 mls @ 1,000 mls/hr 12/29/24 07:45 12/29/24 08:41 0.9 % Sodium Chloride 1000 Ml IV 12/29/24 08:44 Infused .Q1H BRAIN Infusion Medical Decision Making MDM Narrative Medical decision making narrative: 49-year-old female with history of ulcerative colitis, poorly managed at this time. We will go ahead and increase her prednisone to 60 mg daily and have her follow-up with GI. Lab Data Lab results reviewed: Yes I reviewed the patient's lab results Labs: Lab Results 12/29/24 12/29/24 Range/Units 07:10 07:27 WBC 5.85 (4.50-11.00) K/uL RBC 4.29 (4.00-5.20) m/uL Hgb 13.1 (12.0-16.0) gm/dL Hct 40.2 (33.0-51.0) % MCV 94 (80-100) fL MCH 31 (26-34) pg MCHC 33 (32-36) gm/dL RDW Coeff of Bree 12.8 (11.5-15.5) % Plt Count 232 (140-440) K/uL Neut % (Auto) 36.0 L (42.0-72.0) % Lymph % (Auto) 48.9 H (20-44) % Hood % (Auto) 11.6 H (0.0-11.0) % Eos % (Auto) 2.9 (0.0-7.0) % Baso % (Auto) 0.3 (0.0-3.0) % Neut # (Auto) 2.10 (1.7-7.0) K/uL Lymph # (Auto) 2.90 (0.90-2.90) K/uL Hood # (Auto) 0.70 (0.00-0.90) K/UL Eos # (Auto) 0.17 (0.00-0.50) K/uL Baso # (Auto) 0.02 (0.00-0.30) K/uL Abs Immat Gran (auto) 0.02 (0.00-0.30) K/uL Imm/Tot Granulo (auto) 0.3 % Sodium 136 (135-149) mmol/L Potassium 3.4 L (3.6-5.1) mmol/L Chloride 101 (96-114) mmol/L Carbon Dioxide 31 (20-32) mmol/L Anion Gap 4 L (7-15) mEq/L BUN 11 (5-24) mg/dL Creatinine 0.8 (0.5-1.5) mg/dL Estimated Creat Clear 81.38 Estimated GFR 91 ml/min Glucose 103 (60-115) mg/dL Lactate 1.1 (0.5-1.9) mmol/L Calcium 9.2 (8.4-10.6) mg/dL Total Bilirubin 0.4 (0.1-1.5) mg/dL Direct Bilirubin 0.1 (0.0-0.5) mg/dL AST 23 (12-35) U/L ALT 18 (4-35) U/L Alkaline Phosphatase 87 (40-150) U/L C-Reactive Protein 4.8 H (0.5-1.0) mg/dL Total Protein 6.6 (6.0-8.3) g/dL Albumin 3.7 (3.3-5.0) g/dL Lipase 51 (23-300) U/L Urine Color Yellow (Yellow) Urine Appearance Clear (Clear) Urine pH 6.5 (5.0-8.5) Ur Specific [place] 1.020 (1.000-1.030) Urine Protein 1+ A (Negative) Urine Glucose (UA) Negative (Negative) Urine Ketones Trace A (Negative) Urine Blood Trace-intact A (Negative) Urine Nitrite Negative (Negative) Urine Bilirubin 1+ A (Negative) Urine Urobilinogen 0.2 (0.2-1.0) Ur Leukocyte Esterase Trace A (Negative) Urine RBC 0-2 (0-2) Urine WBC 0-2 (0-5) Ur Squamous Epith Cells Many A (None-Few) Uric Acid Crystals Moderate A (None) Urine Bacteria None (None) Urine HCG, Qual Negative (Negative) Imaging Data CT scan - abdomen: Attestation: I have reviewed the pertinent imaging results. Radiologist's impression: TECHNIQUE: CT examination of the abdomen and pelvis was performed following the uneventful intravenous administration of 91 cc of Omnipaque 350. Thin section axial images were obtained from the lung bases through the pubic symphysis. Oral contrast was not administered. Please note that all CT scans at this facility use dose modulation, iterative reconstruction, and/or weight-based dosing when appropriate to reduce radiation dose to as low as reasonably achievable. FINDINGS: LUNG BASES: The lung bases as visualized appear normal.The heart size is normal at the lung bases. LIVER/BILIARY SYSTEM:Normal-sized liver. No focal mass. Status post cholecystectomy. Normal caliber of the biliary ductal system given reservoir phenomena from prior cholecystectomy. Similar appearance to 2021.The gallbladder is surgically absent. ADRENALS: Normal KIDNEYS, URETERS and BLADDER:The kidneys appear normal. No visible mass, calculus or hydronephrosis. The ureters and bladder as visualized appear normal. SPLEEN:Benign-appearing low-density splenic lesion unchanged. Normal-sized spleen. PANCREAS: Appears normal. RETROPERITONEUM and MESENTERY: There is no mass, adenopathy or aortic aneurysm. GASTROINTESTINAL SYSTEM: Wall thickening and inflammation involving the distal descending colon, sigmoid colon and rectum consistent with proctocolitis. Otherwise unremarkable. PELVIS: No mass, adenopathy or free fluid. OSSEOUS STRUCTURES and ABDOMINAL WALL: There is an age-appropriate appearance of the osseous structures.Small fat containing umbilical hernia which is larger than it was July 12, 2021. OTHER: No free fluid or free air. IMPRESSION: 1. There is wall thickening and inflammation involving the distal descending colon, sigmoid colon and rectum consistent with proctocolitis. GI system otherwise unremarkable. No intramural air, free air or collection. 2. Other nonacute appearing findings as above. Please review the co Discharge Plan Discharge Clinical Impression: Ulcerative colitis Qualifiers: Ulcerative colitis location: ulcerative pancolitis Digestive disease complication type: without complication Qualified Code(s): K51.00 - Ulcerative (chronic) pancolitis without complications Patient Disposition: Home, Self-Care Condition: Stable Additional Instructions: Start increased dose of prednisone at 60 mg daily. Do this for at least 7 days. Fourteen days worth of prednisone will be prescribed to you today. Start to very slowly decrease the dose as symptoms start to improve. The taper should take anywhere from 1-3 months. You should follow-up with your primary care provider and your GI team in the next week to discuss the taper of the prednisone. Prescriptions: New prednisone 20 mg tablet 60 mg PO DAILY 14 Days Qty: 42 0RF No Action dicyclomine 10 mg capsule 10 mg PO QID PRN multivitamin Tablet 1 tab PO QAM trazodone 50 mg tablet 50 mg PO QHS Qty: 90 3RF Rx Instructions: 50-100 mg at bedtime oxybutynin chloride 5 mg tablet 10 mg PO BID Qty: 180 3RF Entyvio 300 mg recon soln 300 mg IV Q8W Rx Instructions: administer over 30 mins calcium carbonate [Calcium 600] 600 mg calcium (1,500 mg) tablet 1,200 mg PO QDAY hyoscyamine sulfate 0.125 mg tablet, sublingual 0.125 mg PO Q4H PRN Patient Comments: PLACE 2 TABLETS (0.25 MG) UNDER TONGUE EVERY 4 HOURS NEEDED FOR CRAMPING. tamoxifen 20 mg tablet 20 mg PO QDAY Qty: 90 3RF Follow Up/Referrals: Noemi Abernathy MD [Primary Care Provider, Family Practice] Stand Alone Forms: MyHealth Info Instructions
[2024-12-29 07:54] LABS: Hematocrit 40.2 % (33.0-51.0); Hemoglobin* 13.1 gm/dL (12.0-16.0); Immature Granulocytes Abs Auto 0.02 K/uL (0.00-0.30); Immature Granulocytes Pct Auto 0.3 %; Mean Corpuscular HGB Conc 33 gm/dL (32-36); Mean Corpuscular Hemoglobin 31 pg (26-34); Mean Corpuscular Volume 94 fL (80-100); RDW Coefficient of Variation % 12.8 % (11.5-15.5); Red Blood Count 4.29 m/uL (4.00-5.20); White Blood Count* 5.85 K/uL (4.50-11.00)
[2024-12-29 07:56] LABS: Ur HCG Qualitative* Negative (Negative)
[2024-12-29 08:01] LABS: Lymphocytes Absolute Auto 2.90 K/uL (0.90-2.90); Slide Review Reflex No
[2024-12-29 08:07] LABS: Albumin* 3.7 g/dL (3.3-5.0); Chloride* 101 mmol/L (96-114); Sodium* 136 mmol/L (135-149)
[2024-12-29 08:08] LABS: Potassium* 3.4 mmol/L (3.6-5.1)
[2024-12-29 08:10] LABS: Alanine Aminotransferase* 18 U/L (4-35); Alkaline Phosphatase* 87 U/L (40-150); Anion Gap 4 mEq/L (7-15); Aspartate Amino Transferase* 23 U/L (12-35); Bilirubin Direct* 0.1 mg/dL (0.0-0.5); Bilirubin Total* 0.4 mg/dL (0.1-1.5); Blood Urea Nitrogen* 11 mg/dL (5-24); Carbon Dioxide* 31 mmol/L (20-32); Creatinine* 0.8 mg/dL (0.5-1.5); Est. Creatinine Clearance* 81.38; Estimated Glomerular Filt Rate 91 ml/min; Total Protein* 6.6 g/dL (6.0-8.3)
[2024-12-29 08:11] LABS: Calcium* 9.2 mg/dL (8.4-10.6); Glucose* 103 mg/dL (60-115)
[2024-12-29 08:24] VITALS: BP 130/80; PULSE 84; RESP 16; O2SAT 97
== END 2024-12-29 09:26 | disposition home or self-care (01) ==
PROVIDERS: Family Medicine; Emergency Provider Family Medicine; PCP Family Medicine
DX: K51.00 Ulcerative (chronic) pancolitis without complications (principal)
CPT/HCPCS: 36415; 74177; 80048; 80076; 81001; 81003; 81025; 83605; 83690; 85025; 86140; 87086; 99284; J7030; Q9967

== ENCOUNTER 2025-01-08 06:31 | Inpatient (IN) | payer OTHER, SELFPAY ==
--- OUTSIDE RECORDS SUMMARY | 2024-11-25 15:20 | XMS_ITS | Encounter Summary ---
Author Organization [employer] Address [address] [place] [address] Care Team Providers Care Disposal Man Name Role Phone Sheeba Castillo APRN, CNP Primary Care Provid er Reason for Visit * Reason Comments Pre-visit Planning Entered automaticall y based on patient selection in [employer]. 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) (Primary Dx) Social History Tobacco Use Types Packs/Day Years Used Date Smoking Tobacco: Former Cigarettes 0.3 15 1 06/25/1999 - 04/25/2015 Smokeless Tobacco: Never Alcohol Use Standard Drinks/Week Comments Yes 1 (1 standard drink = 0.6 oz pur e alcohol) 1-3 drinks a week PHQ-2 Answer Date Recorded PHQ-2 Score 0 03/15/2020 Comments No Sex and Gender Information Value Date Recorded Sex Assigned at Female 05/09/2021 7:19 PM CLUTCH INSPECTOR Legal Sex Female 11:31 AM CDT Gender Identity Female 05/09/2021 7:19 PM CLUTCH INSPECTOR Sexual Orientation Straight 05/09/2021 7: 19 PM CLUTCH INSPECTOR 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 Advised pt to check with them to just verify it was all received, in order toget them completed tomorrow 12/03/2024 before her infusion. Pt verbalized understanding and will contact us if there is any issues. * Kinga Burns RN - 12/02/2024 9:47 AM CDT Noted by senior writer. Per Dr. Lan's written order in this encounter, provider order sheet, along with demographic sheet, was completed and signed and faxed to the fax number listed in prior note. Successfulfax confirmation page received. Copy placed to GI nursing file and original sent to HIM for scanning to chart. Routing to nursing team to notify patient. * Мария Quiñones RN - 12/01/2024 3:11 PM CDT fabric worker leader please fill out a fuchsia form for labs Vedolizumab trough level with reflex to antibody - on the day of infusion (prior to infusion) on 12/03/24along with CBC, BMP, LFTs, CRP and fecal calprotectin. [facility] [place] nurse Gonzalez contact number for any questions regarding labs: [phone] Routing to seafood service team member. MyChart sent to pt with update. * Мария Quiñones RN - 11/28/2024 4:48 PM CDT Left voicemail asking pt to call back. * Luke Bourne MD - 11/27/2024 5:14 PM CDT Covering for . Recommend to check vedolizumab trough level with reflex to antibody - on the day of infusion (priorto infusion) along with CBC, BMP, LFTs, CRP and fecal calprotectin. Luke Bourne MD Lime Kiln Operator [facility] documented in this encounter Plan of Treatment Upcoming Encounters Date Type Department Care Team (Late st Contact Info) Description 01/09/2025 9:00 AM CDT Appointment [facility] [address] [phone] Kiley Luo, PharmD [address] [place], [place] [phone] 03/10/2025 7:50 AM CDT Telemedicine Dig[facility]ive [facility] at [facility] [address] [facility] [address] [place], [place] [id number] Teri Ruth, PROFESSOR OF ENGINEERING, DIRECTOR BIOLOGICS [address] [place], [place] [id number] Scheduled Orders Name Type Priority Associated Diagnoses Orde r Schedule Complete Blood Count-No Diff Lab Routine Chronic ulcerative proctitis with rectal bleeding (HRC) Expected: 11/28/2024, Expires: 02/26/2025 C-Reactive Protein Lab Routine Chronic ulcerative proctitis with rectal bleeding (HRC) Expected: 11/28/2024, Expires: 02/26/2025 Fecal Calprotectin Lab Routine Chronic ulcerative proctitis with rectal bleeding (HRC) Expected: 11/28/2024, Expires: 02/26/2025 Basic Metabolic Panel Lab Routine Chronic ulcerative proctitis with rectal bleeding (HRC) Expected: 11/28/2024, Expires: 02/26/2025 Liver Panel (Hepatic Function Panel) Lab Routine Chronic ulcerative proctitis with rectal bleeding (HRC) Expected: 11/28/2024, Expires: 02/26/2025 Vedolizumab Quantitation with Reflex to Antibodies Lab Routine Chronic ulcerative proctitis with rectal bleeding (HRC) Expected: 11/28/2024, Expires: 02/26/2025 documented as of this encounter Visit Diagnoses Diagnosis Chronic ulcerative proctitis with rectal bleeding (HRC)- Primary Ulcerative (chronic) proctitis documented in this encounter Care Teams Disposal Man Relationship Specialty Start Date End Date Sheeba Castillo, PROFESSOR OF ENGINEERING, DIRECTOR BIOLOGICS [address] [place] [phone] PCP - General Nurse Practitioner 07/20/16 documented as of this encounter
--- OUTSIDE RECORDS SUMMARY | 2024-12-08 10:40 | XMS_ITS | Encounter Summary ---
Author Organization [facility] Address [address] [place] [address] Care Team Providers Care Livestock Laborer Name Role Phone Sheeba Castillo APRN, CNP Primary Care Provid er Reason for Visit * Reason Comments Follow-up Encounter Details Date Type Department Care Team (Late st Contact Info) Description 12/08/2024 10:40 AM CDT Office Visit [facility] at 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 I am sorry you are not doing well with respect to your inflammatory bowel disease. I have given you a prescription for a prednisone taper; this was sent to your local pharmacy in [place]. This is a temporary measure until we [...] I will be in contact via your [employer] account. documented in this encounter Progress Notes * Eusebio Haines MD - 12/08/2024 10:40 AM CDT GI Clinic Progress Note Idania Galeana MR# [id number] [facility]# [id number] Date of Visit: 12/08/24 Idania Galeana is [...] carcinoma), leg 08/11/2011 BP (high blood pressure) ([facility]) Chronic headaches 08/11/2011 Clostridium difficile colitis 01/2012 Concussion 08/11/2011 HTN (hypertension) ([facility]) 08/11/2011 Hx of tonsillectomy 08/11/2011 Irritable bowel syndrome 11/29/2002 Melanoma Trunk 11/01/2010 Obesity ([facility]) 08/11/2011 PSH: Past Surgical History: Procedure [...] and oxygen saturations were monitored continuously. The [id number] was introduced through the anus and advanced [...] from the initial medication administration until the all source collection manager assists with initial maneuvers (biopsy / polypectomy [...] 9:00 AM CDT Appointment [facility] [address] [phone] Kiley Luo, PharmD [address] [place] [address] 03/10/2025 7:50 AM CDT Telemedicine Digestive Care at [facility] [address] [facility] [address] [place], [place] [address] Teri Ruth, SCIENCE AND OPERATIONS OFFICER, OWNER/PHOTOGRAPHER [address] [place], [place] [phone] documented as of this encounter Visit Diagnoses Diagnosis Left sided colitis with rectal bleeding (HRC)- Primary Left sided ulcerative (chronic) colitis Hematochezia Blood in stool Diarrhea, unspecified type Tenesmus (rectal) Other symptoms involving digestive system documented in this encounter Care Teams Livestock Laborer Relationship Specialty Start Date End Date Sheeba Castillo, SCIENCE AND OPERATIONS OFFICER, OWNER/PHOTOGRAPHER [address] [place], [place] [address] [id number] PCP - General Nurse Practitioner 07/20/16 documented as of this encounter
--- OUTSIDE RECORDS SUMMARY | 2024-12-29 11:00 | XMS_ITS | Encounter Summary ---
Author Organization [facility] Address [address] [place] [address] Care Team Providers Care Ac/Dc Rewinder Name Role Phone Sheeba Castillo APRN, CNP Primary Care Provid er Reason for Referral * Medication Prior Authorization - Pending Review Specialty Diagnoses / Procedures Referred By Contac t Referred To Contact Diagnoses Ulcerative rectosigmoiditis with rectal bleeding (HRC) Eusebio Haines MD [address] [place] [address] Phone: tel: fax: Referral ID Status Reason Start Date Expiration Date V isits Requested Visits Authorized [id number] Pending Review 1 1 Reason for Visit * Reason Comments MEDICATION THERAPY MANAGEMENT * Consult/Transfer Care (Routine) - Work Comp Specialty Diagnoses / Procedures Referred By Contac t Referred To Contact Diagnoses Left sided colitis with rectal bleeding (HRC) Hematochezia Diarrhea, unspecified type Eusebio Haines MD [address] [place] [address] Phone: tel: fax: Referral ID Status Reason Start Date Expiration Date V isits Requested Visits Authorized [id number] Work Comp 12/21/2024 03/22/2026 1 1 Encounter Details Date Type Department Care Team (Late st Contact Info) Description 12/29/2024 11:00 AM CDT Phone Visit [facility] [address] [address] Kiley Luo, PharmD [address] [place] [address] Ulcerative rectosigmoiditis with rectal bleeding (HRC) (Primary Dx) Social [...] Sex Assigned at Female 05/09/2021 7:19 PM ACCOUNTING MACHINE MECHANIC Legal Sex Female 11:31 AM CDT Gender Identity Female 05/09/2021 7:19 PM ACCOUNTING MACHINE MECHANIC Sexual Orientation Straight 05/09/2021 7: 19 PM ACCOUNTING MACHINE MECHANIC Occupation Industry Job Start Date Job End Date [employer] Not on file Not on file Not on file documented as of this encounter Patient Instructions * Patient Instructions* Kiley Luo, PharmD - 12/29/2024 11:00 AM CDT MEDICATION COMMENTS FROM TODAY: Marcin Emerson, It was a pleasure speaking with you! Here are the things we discussed: We will have our teams start the prior authorization process for Skyrizi (risankizumab-rzaa). The usual dosing for ulcerative colitis is as follows: (Induction) 1,200 mg administered by IV infusion at Week 0, Week 4, and Week 8. (Maintenance) 360 mg subcutaneously at Week 12, and every 8 weeks thereafter. General Information: Learn more about SKYRIZI?? (risankizumab-rzaa) for UC Link for free sharps container and travel cooler: Resources to Stay on Track Skyrizi Complete Two prior authorizations are needed from your insurance - one for the 3 initial IV infusions and then a separate one for the autoinjector injections that you will start after the infusions. IV infusions: Our infusion staff will process your insurance and you will receive a call about coverage for the medication. The infusion staff will also contact you to schedule your infusions. Autoinjector injections: The autoinjector injections will be given by yourself at home. A prescription was sent to the [facility] team for review. They will assist you and yourprovider with the prior authorization process and discuss options for medication fulfillment. They can also help with financial assistance options to make sure you have the lowest possible [id number] expense for your medication.The [facility] can be reached at [phone]. We can have you come in for a pharmacist visit for teaching on a Sunday in [place], schedule a video education visit, or you can arrange for an [place] nurse (podiatric aide of Skyrizi) to come to [facility] for injection teaching at no cost. This resource can be utilized through the Skyrizi Complete program linked above. I advise you look at some injection education videos online for the Skyrizi on- body injector prior to our next visit so we can determine the best education method for you. Ordered Skyrizi start labs. After looking at your lab history here and at [facility], there are several labs we will want updated prior to having you start the Skyrizi. I have ordered labs for a complete metabolic panel, complete blood count, hepatitis B, and tuberculosis. I ordered this for any [facility] location. If you would to have these drawn at a [facility] lab, let me know and we can fax the orders over. Ordered routine Skyrizi labs to be drawn with week 4 infusion, then every 3-6 months. Continue dermatology skin checks every 3 months. Recommended vaccines: COVID and pneumonia (PCV20 or PCV21) once prednisone dose is <20 mg daily.These vaccinations can be obtained at your local pharmacy. Follow up: 01/09/25 Thank you for allowing me to participate in your healthcare and medication management. Please call the clinic or contact me via citizenmadet with any questions or concerns. Kiley Luo PharmD Medication Therapy Management Pharmacist [facility] Appt: documented in this encounter Progress Notes * Kiley Luo, PharmD - 12/29/2024 11:00 AM CDT Images from the original note were not included. SUBJECTIVE Idania Galeana is a 49 y.o. female who was referred by [facility] seen over the phone for medication review/education. Appointment type: new patient. Pt's concerns/goals today: switching biologic ulcerative colitis treatment. Adherence: -# of times per day patient takes meds: 2 -# of missed doses in the past week: 0 -Use of supportive adherence tools: pill box Ulcerative Colitis IBD history -Extent of disease: left-sided colitis -Diagnosed: 08/2015 -IBD surgical history: none, lap cholecystectomy 07/12/16 Recent imaging/procedures -04/28/24 colonoscopy with examined portion of the ileum was normal. One 2 mm polyp in the ascending colon, removed with a cold biopsy forceps. Resected and retrieved. Normal mucosa in the transversecolon, in the ascending colon and in the cecum. Biopsied. Scar in the sigmoid colon, in the descending colon and at the splenic flexure. Biopsied. Moderately active (Tam Score 2) proctitis ulcerative colitis. Biopsied. Pseudopolyps in the entire examined colon. The examination was otherwise normal. Colon, cecum, ascending, transverse, biopsy: Negative for active colitis, Negative for dysplasia. Colon, descending, sigmoid, biopsy: Negative for active colitis, Negative for dysplasia. Colon, rectum, biopsy: Moderate chronic active colitis, Indefinite for dysplasia. Colon, ascending, polypectomy: Tubular adenoma. Past medication trials -5-ASA: --- Canasa (08/2015 - 02/2020) --- oral mesalamine (2015 - 04/2019) -Steroids (intermittently): --- prednisone, multiple prolonged courses since diagnosis --- Proctofoam, ineffective -Immunomodulators: none -Biologics: --- infliximab (05/03/19 - 08/08/19), dose increased to 10 mg/kg given subtherapeutic level, stopped due to ongoing symptoms -Small molecules: ---tofacitinib (03/14/19 - 04/23/19), worsening symptoms Current treatment(s) -vedolizumab (09/10/19 - 12/03/24), therapeutic levels, ongoing flare -prednisone, flare starting 03/2024 requiring multiple rounds of prednisone Current IBD symptoms -- status: worsening -Number of daily BMs: 15-20, small amounts, never -Nocturnal BMs: 0 -Stool consistency: loose -Fecal urgency: yes, has to run to the bathroom in the morning right when wakes, many times is gas and no stool -Rectal bleeding/blood in stool: both blood in the stool and upon wiping, with every bowel movement -Abdominal pain: started on Sunday (12/26) and worsened over the weekend on lower left side -Gas/bloating: very bloated, multiple bathroom trips with gas -Nausea/vomiting: no -Fever/chills: yes, starting last night -Weight changes: no -Extraintestinal manifestations: no skin changes, no rash, no painful eyes, maybe some blurred vision with prednisone, no mouth sores -Increased IBD symptoms prior to next infusion/injection: no -Other: no Additional details -NSAID use: no -Tobacco use: no, former -Pap smear: history of total hysterectomy, 01/2021 HPV negative -Skin exam: [facility], every 3 months, last 12/22/24 -Access to a sharps container: can obtain from podiatric aide -Would like Skyrizi induction infusions at [facility] location. Will also get lab monitoring done there. -Will get pneumonia vaccination from local pharmacy as soon as able based on prednisone dosing. Medication Sig predniSONE (DELTASONE) 10 MG tablet Take 4 Tablets (40 mg) by mouth daily for 7 days, THEN 3 Tablets (30 mg) daily for 7 days, THEN 2 Tablets (20 mg) daily for 7 days, THEN 1.5 Tablets (15 mg) daily for 7 days, THEN 1 Tablet (10 mg) daily for 7 days, THEN 0.5 Tablets (5 mg) daily for 7 days. TAKING Now taking 60 mg daily Was down to 20 mg daily today with no benefit, instructed to increase to 60 mg daily Potentially some blurred vision No sleep concerns or worsened stomach upset dicyclomine (BENTYL) 20 MG tablet TAKE 1 TABLET BY MOUTH 4 TIMES DAILY NEEDED NEEDED Use has increased a lot in past week Taking 1 tablet 6 times daily, alternating with hyoscyamine --- not every day but this is the maximum she has gotten to Helps with the cramping a little bit Helps more than hyoscyamine but makes feel weird No constipation, urinary retention, dry mouth, headache, skin redness, behavior change Has not noticed blurred vision correlating with dicyclomine or bentyl, more with prednisone hyoscyamine (OSCIMIN) 0.[address] 2 TABLETS (0.25 MG) UNDER TONGUE EVERY 4 HOURS NEEDED FOR CRAMPING. NEEDED Use has increased a lot in past week Taking 1 tablet 6 times daily, alternating with dicyclomine --- not every day but this is the maximum she has gotten to Helps with the cramping a little bit Not as helpful as dicyclomine, could be less efficacious given interaction with calcium carbonate vedolizumab (ENTYVIO) 300 MG SOLR injection Maintenance Entyvio infusions every 8 weeks. TAKING Last infusion 12/03/24 Not effective Hot flashes +oxybutynin 10 mg twice daily Sleep +Trazodone 50 mg, 1 tablet every night at bedtime for sleep History of breast cancer +tamoxifen 20 mg daily, history of breast cancer Vitamins/Supplements Medication Sig Multiple Vitamin (MULTI-VITAMIN OR) Take 1 tablet by mouth daily (every 24 hours). TAKING Calcium Carbonate Antacid 1000 MG Take by mouth. Reported on 08/14/2016 TAKING Calcium carbonate 600 mg + vitamin D 800 units, 1 tablet twice daily Objective BP Readings from Last 3 Encounters: 04/28/24 108/63 05/12/22 (!) 140/92 03/10/22 (!) 152/73 Pulse Readings from Last 3 Encounters: 04/28/24 79 05/12/22 88 03/10/22 90 Lab Results Component Value Date SODIUM 139 04/08/2020 K 3.4 (L) 04/08/2020 MG 2.2 05/03/2019 CA 8.9 04/08/2020 BUN 11 04/08/2020 ALB 3.3 (L) 04/30/2019 INR 1.0 05/01/2019 HGBA1C 5.5 12/19/2018 CREATININE 0.70 03/10/2022 GFR >60 03/10/2022 TSH 1.63 12/19/2018 Per [facility], 06/28/23 Lab Results Component Value Date WBC 6.4 03/10/2022 RBC 4.55 08/04/2019 HGB 13.9 03/10/2022 HCT 41.7 08/04/2019 MCV 91.6 08/04/2019 MCH 30.8 08/04/2019 MCHC 33.6 08/04/2019 RDW 12.2 08/04/2019 PLTS 336 12/01/2019 LYMA 2.5 08/04/2019 MONOA 0.4 08/04/2019 EOSA 0.2 08/04/2019 BASA 0.1 08/04/2019 ESR 7 04/30/2019 CRP 1.0 (H) 03/10/2022 Per [facility], 04/01/24 Lab Results Component Value Date CHOL 175 04/08/2020 HDL 59 04/08/2020 LDL 94 04/08/2020 TRI 108 04/08/2020 Lab Results Component Value Date HAVG Negative (Non Reactive) 03/10/2022 HBSAG Nonreactive 07/26/2016 HIV Non-React 03/24/2015 Component Ref Range & Units 07/26/16 Hep B Surf Ab Nonreactive Reactive Hep B Ab Quant mIU/mL >1,000 Component Ref Range & Units 03/24/15 Hepatitis C Antibody Non-Reactive Non-React Component 02/20/19 T SPOT TB Result Negative Negative Control Spot Count 0 Panel A Spot Count 1 Panel B Spot Count 0 Positive Control Spot Count >20 Lab Results Component Value Date ALKPHOS 70 03/10/2022 BILIRUBINTOT 0.4 03/10/2022 BILIRUBINDIR 0.1 04/30/2019 ALT 21 03/10/2022 AST 14 04/30/2019 TPRO 6.9 04/30/2019 ALB 3.3 (L) 04/30/2019 No results found for: CALPROC, CALPROI Per [facility] Calpro Fec 75 (H) 04/14/24 Lab Results Component Value Date FERR 71 03/24/2015 FE 88 03/24/2015 SAT 28 03/24/2015 Lab Results Component Value Date VTD25 62 05/29/2016 B12 905 04/02/2015 FOLATE 22.3 04/02/2015 Lab Results Component Value Date INFLX 15.74 09/01/2019 Lab Results Component Value Date VEDOQ 19.7 03/10/2022 Per [facility] Vedo 11.5 06/05/24 Vedo antibodies <9.8 06/05/24 Immunization History Administered Date(s) Administered Flu Vac (3+ yrs) 03/27/2024 Flu Vac Preserv Free (3+yrs) 04/09/2006, 04/03/2007, 04/08/2008, 04/17/2008, 03/04/2009, 03/10/2010, 03/10/2011, 03/04/2012 Fluzone Qiv Multidose Vial 0.25 (6-35 Mos) 03/23/2021 H1n1 Laiv Medimmune 2-49 Yr (Intranasal) 04/13/2009 H1n1 Miv Sanofi 3+ Yr (Injected) 06/09/2013 HepB Adult (Engerix-B, 20+ yrs, 3 dose series) 01/02/2002, 02/08/2006 HepB, Unspecified Formulation 08/09/2001 Influenza IIV4 (Quadrivalent) 0.5mL (60040) 03/23/2014, 03/24/2015, 03/23/2016, 03/26/2017, 03/21/2018, 03/22/2018, 03/31/2019, 2022, 03/20/2023 Pfizer Bivalent 12+ 04/21/2022 Pfizer COVID-19 12+ 03/27/2024 Pfizer COVID-19 6m-4 03/20/2023 Pfizer Monovalent 12+ Purple Top 06/16/2020, 07/06/2020, 03/23/2021 TDAP (ADACEL) 07/04/2010 Td 11/30/2003 Tdap 02/11/2021 Zoster RZV (Shingrix) 03/14/2019, 08/03/2022 ASSESSMENT BP goal: <130/80. Pt is at goal. LDL goal: no statin indicated. Pt is at goal. HgbA1C goal: <7%. Pt is at goal. Labs/Immunizations: -Reviewed all pertinent labs -Immunization status: not up to date - COVID, pneumococcal 1. Ulcerative colitis and vedolizumab Effectiveness - Different Drug Product needed: condition refractory to drug Status: Resolved Currently on indicated vedolizumab and prednisone for ulcerative colitis with ongoing flare. Reasonable to switch to alternative biologic medication. Previously tried and failed Canasa, oral mesalamine, Proctofoam, infliximab, and tofacitinib. Has required multiple prolonged prednisone courses. Given patient's history of malignancy (breast cancer and melanoma), avoiding CAIT inhibitors. Would be reasonable to start risankizumab given indicated and effective for ulcerative colitis with a favorable safety profile. 2. Ulcerative colitis and risankizumab Safety/screening - Lab monitoring needed Status: Resolved Given previous labs from [facility] found on chart review and time since last draw, reasonable to obtain updated CMP, CBC w/ diff, hepatitis B, and tuberculosis labs prior to new biologic start. Routine Skyrizi labs (with week 4 infusion, then every 3-6 months): CBC w/ diff, LFTs. Liver enzymes and bilirubin levels should be monitored during induction. Indicated for skin exam every 3 months per tool and die maker. 3. Preventative health and immunizations Indication - Additional Drug Therapy needed: preventive/prophylactic Status: Pending Idania qualifies for the following vaccines: pneumococcal (PCV20 or PCV21) and COVID-19. Is considered immunocompromised due to having IBD/currently on immunosuppressive therapy. Should wait to obtainvaccinations until prednisone dose is <20 mg daily to have a greater chance of effectiveness. PLAN (Induction) Sent Skyrizi infusion orders to review insurance coverage and schedule infusions. (Maintenance) Sent Skyrizi autoinjector to the [facility] to review insurance coverage and fulfillment options. Ordered Skyrizi start labs. Ordered routine Skyrizi labs to be drawn with week 4 infusion, then every 3-6 months. Continue dermatology skin checks every 3 months. Recommended vaccines: COVID and pneumonia (PCV20 or PCV21) once prednisone dose is <20 mg daily. Follow up with [facility] Pharmacist: 01/09/25 Updated [employer] med list and reviewed medications including indications with patient. Billing Requirements: Recipient of visit: Patient Medicare CI: no Clinician location: clinic Patient location: home Billing based on flat fee Total time spent with patient: 46 - 60 min # of DTPs: 3 # of DTPs resolved: 2 documented in this encounter Plan of Treatment Upcoming Encounters Date Type Department Care Team (Late st Contact Info) Description 01/09/2025 9:00 AM CDT Appointment [facility] [place] [address] [address] Kiley Luo, PharmD [address] [place] [address] 03/10/2025 7:50 AM CDT Telemedicine Digestive Care at [facility] and Specialty [facility] [address] [facility] [address] [place], [place] [id number] Teri Ruth, SHEET METAL OPERATOR, PYROTECHNICS PRESS TENDER [address] [place] [address] Scheduled Orders Name Type Priority Associated Diagnoses Orde r Schedule Complete Blood Count -W/Diff Lab Routine Ulcerative rectosigmoiditis with rectal bleeding (HRC) Expected: 12/29/2024, Expires: 03/29/2025 Comprehensive Metabolic Panel Lab Routine Ulcerative rectosigmoiditis with rectal bleeding (HRC) Expected: 12/29/2024, Expires: 03/29/2025 Hepatitis B Core Antibody (Anti-HBC) Microbiology Routine Ulcerative rectosigmoiditis with rectal bleeding (HRC) Expected: 12/29/2024, Expires: 03/29/2025 Hepatitis B Surface Antibody Microbiology Routine Ulcerative rectosigmoiditis with rectal bleeding (HRC) Expected: 12/29/2024, Expires: 03/29/2025 Hepatitis B Surface Antigen (HBsAG) Microbiology Routine Ulcerative rectosigmoiditis with rectal bleeding (HRC) Expected: 12/29/2024, Expires: 03/29/2025 TB QuantiFERON Gold Plus Lab Routine Ulcerative rectosigmoiditis with rectal bleeding (HRC) Expected: 12/29/2024, Expires: 03/29/2025 Complete Blood Count -W/Diff Lab Routine Ulcerative rectosigmoiditis with rectal bleeding (HRC) 4 Occurrences starting 12/29/2024 until 12/29/2025 Liver Panel(Hepatic Function Panel) Lab Routine Ulcerative rectosigmoiditis with rectal bleeding (HRC) 4 Occurrences starting 12/29/2024 until 12/29/2025 documented as of this encounter Visit Diagnoses Diagnosis Ulcerative rectosigmoiditis with rectal bleeding (HRC)- Primary documented in this encounter Care Teams Ac/Dc Rewinder Relationship Specialty Start Date End Date Sheeba Castillo, RUDY, PYROTECHNICS PRESS TENDER [address] [place] [address] PCP - General Nurse Practitioner 07/20/16 documented as of this encounter
[2025-01-08] VITALS (11 sets, daily range): BP systolic 116–146; BP diastolic 69–98; PULSE 70–116; RESP 16–18; TEMP 36.4–36.9; O2SAT 86–97; BMI 30.5; BMI 29.7
--- OUTSIDE RECORDS SUMMARY | 2025-01-08 06:34 | XMS_ITS | Encounter Summary ---
Author Organization [facility] Address [address] [place] [address] Care Team Providers Care Auto Appraiser Name Role Phone Sheeba Castillo APRN, CNP Primary Care Provid er Encounter Details Date Type Department Care Team (Late st Contact Info) Description 10/03/2024 Results Follow-Up Endoscopy at [facility] [place] at [address] 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 and Specialty [facility] [address] [address] [address] [place] [address] Teri Ruth, CLINIC OFFICE ASSISTANT, CRAFT COORDINATOR [address] [place], [place] [phone] documented as of this encounter Visit Diagnoses Not on filedocumented in this encounter Care Teams Auto Appraiser Relationship Specialty Start Date End Date Sheeba Castillo, CLINIC OFFICE ASSISTANT, CRAFT COORDINATOR [address] [place] [phone] PCP - General Nurse Practitioner 07/20/16 documented as of this encounter
--- OUTSIDE RECORDS SUMMARY | 2025-01-08 06:34 | XMS_ITS | Encounter Summary ---
Author Organization [facility] Address [address] [place] [address] Care Team Providers Care Attendant Lodging Facilities Name Role Phone Sheeba Castillo APRN, SIERRA Primary Care Provid er Reason for Visit * Reason Comments COLITIS, ULCERATIVE ABDOMINAL PAIN Encounter Details Date Type Department Care Team (Late st Contact Info) Description 01/07/2025 Nurse Triage Careline [address] 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 Was going to change me to med. Since has gotten worse Waiting for a prior auth Since saw him, it is getting worse Did a ct, full blown colitis flare Gave me prednisone, on taper, 60 mg- to 20 mg Not doing anything Tonigth went into urgent care Hgb 13. 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 Still waiting for Prior auth for sksmita Sleep 2 hours.. then up in bathroom - rest of night Not getting better, and seems to be getting worse Reviewed pertinent medical history (as relates to the call): Yes Reviewed pertinent medications (as relates to the call): Yes Reason for Disposition Blood in bowel movements (Exception: Blood on surface of BM with constipation.) Protocols used: Abdominal Pain - Ulikyk-SLTLX-NX Clinical Consult Consult type: Specialty behavioral health clinician consult Clinician name: : Dr Bradshaw Paged at: 9:40PM Page returned at : 9:40PM Clinican recommendation comment:: 1. go to ER for pain and exam tonight 2. recheck hgb 3. contact clinic Time frame:: Go Now Telephone orders read back to clinician?: Yes Clinician recommendations/orders shared with patient?: Yes Patient (Select- Agrees/ Disagrees) with plan, no further questions: Agrees Radhika Martinez RN 01/07/2025, 10:03 PM * Brigid Smith - 01/07/2025 8:20 PM CDT Verified patient identity using three identifiers: Yes Caller's relationship to patient: Self, Do you have a provider/clinic where you are seen for this? [facility] Specialty Symptoms Describe the reason for call/symptoms (include location and duration if applicable): Patient has colitis and has had blood in her stool since March. She went into [facility] on Sunday for stomach pain and was given prednisone but it is not helping. She went to an [facility] and was given something for nausea but she still is miserable. She goes to the bathroom very frequently and states it is all blood. This is not new but she is not getting any relief and wonders what she can do. Plan:The current callback time to speak with a nurse is 2 hours. If your symptoms change or worsen,or if you have not received a call back in the stated timeframe, please call us back documented in this encounter Plan of Treatment Upcoming Encounters Date Type Department Care Team (Late st Contact Info) Description 01/09/2025 9:00 AM CDT Appointment [facility] [address] [phone] Kiley Luo, PharmD 38[address] [place], [place] [address] 03/10/2025 7:50 AM CDT Telemedicine Digestive Care at [facility] and Specialty [facility] [address] [facility] [address] [place], [place] [phone] Teri Ruth, CINDER PIT CRANE OPERATOR, NUTRITION WORKER [address] [place], [place] [address] documented as of this encounter Visit Diagnoses Not on filedocumented in this encounter Care Teams Attendant Lodging Facilities Relationship Specialty Start Date End Date Sheeba Castillo APRN, NUTRITION WORKER [address] [place] [address] MAGDALENA Dinh [id number] PCP - General Nurse Practitioner 1/26/17 documented as of this encounter
--- OUTSIDE RECORDS SUMMARY | 2025-01-08 06:34 | XMS_ITS | Encounter Summary ---
Author Organization [employer] Address [address] [place] [address] Care Team Providers Care Agronomy Instructor Name Role Phone Sheeba Castillo APRN, CNP Primary Care Provid er Reason for Visit * Reason Comments Provider Orders Encounter Details Date Type Department Care Team (Late st Contact Info) Description 09/02/2024 Telephone Digestive Care at [facility] [address] [address] Teri Ruth APRN, CNP [address] [place] [address] Provider Orders Social History Tobacco [...] Sex Assigned at Female 05/09/2021 7:19 PM CLAY DIGGER Legal Sex Female 11:31 AM CDT Gender Identity Female 05/09/2021 7:19 PM CLAY DIGGER Sexual Orientation Straight 05/09/2021 7: 19 PM CLAY DIGGER 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 Cristina is aware that patient can indeed have her infusion today per provider TH. Plug Making Operator was able to print and fax over to Cristina RN last visit note with TH from 08/04/24 to [phone]. Received confirmation of faxed received on 09/02/24 at 12:47 pm. * Kinga Burns RN - 09/02/2024 12:15 PM CDT Lisa MARTIN is calling: -Confirming if it's ok to treat patient today? -Also needs copy of patient's latest office visit sent over. Routing to nursing team. * Sindy Anderson LPN - 09/02/2024 8:46 AM CDT Patient notified infusion staff at [facility] that she had a melanoma removed from [...] 9:00 AM CDT Appointment [facility] [address] [phone] Kiley Luo, PharmD 7[address] [place] [address] 03/10/2025 7:50 AM CDT Telemedicine Digestive Care at [facility] and Specialty Center [place] [address] [facility] [address] [place] [address] eTri Ruth APRN, MANAGER DEVELOPMENTAL [address] [facility] [place], [place] [address] documented as of this encounter Visit Diagnoses Not on filedocumented in this encounter Care Teams Agronomy Instructor Relationship Specialty Start Date End Date Sheeba Castillo APRN, MANAGER DEVELOPMENTAL [address] [facility] [place] [address] PCP - General Nurse Practitioner 07/20/16 documented as of this encounter
--- OUTSIDE RECORDS SUMMARY | 2025-01-08 06:34 | XMS_ITS | Encounter Summary ---
Author Organization [employer] Address [address] [place] [address] Care Team Providers Care Automatic Stacker Name Role Phone Sheeba Castillo APRN, CNP Primary Care Provid er Encounter Details Date Type Department Care Team (Late st Contact Info) Description 07/22/2016 Correspondence [facility] [address] [place] [address] Fernanda Lacnaster, POPEYEC [address] [place], [place] [phone] RETURN TO WORK AUTH Social History Tobacco Use Types Packs/Day Years Used Date Smoking Tobacco: Former Cigarettes 0.3 15 1 06/25/1999 - 04/25/2015 Smokeless Tobacco: Never Alcohol Use Standard Drinks/Week Comments Yes 0 (1 standard drink = 0.6 oz pur e alcohol) rarely Comments No Sex and Gender Information Value Date Recorded Sex Assigned at Female 05/09/2021 7:19 PM CHAINSTITCH SEAT JOINER Legal Sex Female 11:31 AM CDT Gender Identity Female 05/09/2021 7:19 PM CHAINSTITCH SEAT JOINER Sexual Orientation Straight 05/09/2021 7: 19 PM CHAINSTITCH SEAT JOINER 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 Not on file Not on file documented as of this encounter Plan of Treatment Upcoming Encounters Date Type Department Care Team (Late st Contact Info) Description 01/09/2025 9:00 AM CDT Appointment [facility] [address] [phone] Kiley Luo, PharmD [address] [place], [place] [address] 03/10/2025 7:50 AM CDT Telemedicine Digestive Care at [facility] and [facility] [address] [facility] [address] [place], [place] [phone] Teri Ruth APRN, PRIVATE DUTY LPN [address] [place] [address] documented as of this encounter Visit Diagnoses Not on filedocumented in this encounter Care Teams Automatic Stacker Relationship Specialty Start Date End Date Sheeba Castillo APRN, PRIVATE DUTY LPN [address] [place] [address] PCP - General Nurse Practitioner 07/20/16 documented as of this encounter
--- OUTSIDE RECORDS SUMMARY | 2025-01-08 06:34 | XMS_ITS | Encounter Summary ---
Author Organization [employer] Address [address] [place] [address] Care Team Providers Care Telemarketing Sales Representative Name Role Phone Sheeba Castillo APRN, CNP Primary Care Provid er Reason for Visit * Reason Comments RESULTS, TEST Encounter Details Date Type Department Care Team (Late st Contact Info) Description 12/11/2024 Telephone Digestive Care at [facility] at [address] 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 Thanks. * Eusebio Haines MD [...] had not received vedolizumab drug level. Called [facility], this has resulted and are faxing [...] 12/11/2024 8:13 AM CDT Test results from [facility] received via fax. Results placed in Yancy's mailbox. documented in this encounter Plan of Treatment Upcoming Encounters Date Type Department Care Team (Late st Contact Info) Description 01/09/2025 9:00 AM CDT Appointment Specialty Center [facility] [address] [phone] Kiley Luo, PharmD 38[address] [place] [address] 03/10/2025 7:50 AM CDT Telemedicine Digestive Care at [facility] and Specialty [facility] [address] [place] [address] [place], [place] [address] Teri Ruth, MANAGER LAW, DITCH DIGGER [address] [place], [place] [address] documented as of this encounter Visit Diagnoses Not on filedocumented in this encounter Care Teams Telemarketing Sales Representative Relationship Specialty Start Date End Date Sheeba Castillo MANAGER LAW, DITCH DIGGER [address] [place] [address] [place] [id number] PCP - General Nurse Practitioner 07/20/16 documented as of this encounter
--- OUTSIDE RECORDS SUMMARY | 2025-01-08 06:34 | XMS_ITS | Encounter Summary ---
Author Organization [employer] Address [address] [place] [address] Care Team Providers Care Sharepoint Solutions Architect Name Role Phone Sheeba Castillo APRN, CNP Primary Care Provid er Encounter Details Date Type Department Care Team (Latest Contact Info) Description 12/03/2024 Orders Only [facility] Provider, [place] [address] Social History Tobacco Use Types Packs/Day Years [...] Sex Assigned at Female 05/09/2021 7:19 PM WHEEL TRUING MACHINE TENDER Legal Sex Female 11:31 AM CDT Gender Identity Female 05/09/2021 7:19 PM WHEEL TRUING MACHINE TENDER Sexual Orientation Straight 05/09/2021 7: 19 PM WHEEL TRUING MACHINE TENDER 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 Not on file Not on file documented as of this encounter Plan of Treatment Upcoming Encounters Date Type Department Care Team (Late st Contact Info) Description 01/09/2025 9:00 AM CDT Appointment [facility] [address] [phone] Kiley Luo, PharmD [address] [place] [address] 03/10/2025 7:50 AM CDT Telemedicine Digestive Care at [facility] and Specialty Center [place] [address] [address] [address] [place], [place] [phone] Teri Ruth, BRAZING MACHINE OPERATOR, HAND LAMINATOR [address] [place], [place] [address] documented as of this encounter Procedures Procedure Name Priority Date/Time Associated Diagnosis Comments LABORATORY REPORT 12/03/2024 documented in this encounter Results * LABORATORY REPORT (12/03/2024) us Interface Provider MD DUMMY/OTHER/AR Final Resu lt documented in this encounter Visit Diagnoses Not on filedocumented in this encounter Care Teams Sharepoint Solutions Architect Relationship Specialty Start Date End Date Sheeba Castillo APRN, HAND LAMINATOR [address] [place] [address] MAGDALENA Dinh [address] PCP - General Nurse Practitioner 07/20/16 documented as of this encounter
--- OUTSIDE RECORDS SUMMARY | 2025-01-08 06:34 | XMS_ITS | Encounter Summary ---
Author Organization [employer] Address [address] [place] [address] Care Team Providers Care Foster Care Worker Name Role Phone Sheeba Castillo APRN, CNP Primary Care Provid er Reason for Visit * Reason Comments Refill dicyclomine (BENTYL) 20 MG tablet [Pharmacy Med Name: DICYCLOMINE HCL 20 MG TAB 20 Tablet] Encounter Details Date Type Department Care Team (Late st Contact Info) Description 01/05/2025 Refill Digestive Care at [facility] Specialty Center at [facility] [address] [place] [address]. 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 Last qualifying visit: 12/08/2024 (in [facility] with ELLIE VARGHESE) Next scheduled visit: 03/10/2025 (in [facility] with TERI SPAIN) [employer] Embedded Refills, Reference: [id number], 01/05/2025 1:38:29 PM CDT, Pool: GI NURSING-PN ([id number]) documented in this encounter Plan of Treatment Upcoming Encounters Date Type Department Care Team (Late st Contact Info) Description 01/09/2025 9:00 AM CDT Appointment [facility] [place] [address] [facility] 435 [place] [phone] Kiley Luo, PharmD 38[address] [place], [place] [address] 03/10/2025 7:50 AM CDT Telemedicine Digestive Care at [facility] and Specialty [facility] [address] [address] [address] [place], [place] [phone] Teri Spain, LEGUILLON DEBEADER, GUEST RELATIONS EXECUTIVE [address] [place], [place] [address] documented as of this encounter Visit Diagnoses Not on filedocumented in this encounter Care Teams Foster Care Worker Relationship Specialty Start Date End Date Sheeba Castillo, LEGUILLON DEBEADER, GUEST RELATIONS EXECUTIVE [address] [place] [phone] PCP - General Nurse Practitioner 07/20/16 documented as of this encounter
--- OUTSIDE RECORDS SUMMARY | 2025-01-08 06:34 | XMS_ITS | Encounter Summary ---
Author Organization [employer] Address [address] [place] [address] Care Team Providers Care Digital Account Director Name Role Phone Sheeba Castillo APRN, CNP Primary Care Provid er Encounter Details Date Type Department Care Team (Late st Contact Info) Description 07/22/2016 Correspondence [facility] [address] [place] [address] Fernanda Lancaster, POPEYEC [address] [place], [place] [phone] RETURN TO WORK AUTH Social History Tobacco Use Types Packs/Day Years Used Date Smoking Tobacco: Former Cigarettes 0.3 15 1 06/25/1999 - 04/25/2015 Smokeless Tobacco: Never Alcohol Use Standard Drinks/Week Comments Yes 0 (1 standard drink = 0.6 oz pur e alcohol) rarely Comments No Sex and Gender Information Value Date Recorded Sex Assigned at Female 05/09/2021 7:19 PM STEAM OVEN OPERATOR Legal Sex Female 11:31 AM CDT Gender Identity Female 05/09/2021 7:19 PM STEAM OVEN OPERATOR Sexual Orientation Straight 05/09/2021 7: 19 PM STEAM OVEN OPERATOR 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 [address] [facility] [address] [place], [place] [phone] Teri Ruth APRN, CONTRACT CLERK [address] [place] [address] documented as of this encounter Visit Diagnoses Not on filedocumented in this encounter Care Teams Digital Account Director Relationship Specialty Start Date End Date Sheeba Castillo APRN, CONTRACT CLERK [address] [place] [id number] PCP - General Nurse Practitioner 07/20/16 documented as of this encounter
--- OUTSIDE RECORDS SUMMARY | 2025-01-08 06:34 | XMS_ITS | Encounter Summary ---
Author Organization [employer] Address [address] [place] [address] Care Team Providers Care Honey Liquefier Name Role Phone Sheeba Castillo APRN, CNP Primary Care Provid er Encounter Details Date Type Department Care Team (Late st Contact Info) Description 07/22/2016 Correspondence [facility] [address] [place] [address] Fernanda Lancaster, POPEYEC [address] [place], [place] [phone] RETURN TO WORK AUTH Social History Tobacco Use Types Packs/Day Years Used Date Smoking Tobacco: Former Cigarettes 0.3 15 1 06/25/1999 - 04/25/2015 Smokeless Tobacco: Never Alcohol Use Standard Drinks/Week Comments Yes 0 (1 standard drink = 0.6 oz pur e alcohol) rarely Comments No Sex and Gender Information Value Date Recorded Sex Assigned at Female 05/09/2021 7:19 PM ASSISTANT TEACHING PROFESSOR Legal Sex Female 11:31 AM CDT Gender Identity Female 05/09/2021 7:19 PM ASSISTANT TEACHING PROFESSOR Sexual Orientation Straight 05/09/2021 7: 19 PM ASSISTANT TEACHING PROFESSOR 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 Not on file Not on file documented as of this encounter Plan of Treatment Upcoming Encounters Date Type Department Care Team (Late st Contact Info) Description 01/09/2025 9:00 AM CDT Appointment Specialty Center [facility] [address] [phone] Kiley Luo, PharmD 38[address] [place], [place] [address] 03/10/2025 7:50 AM CDT Telemedicine Digestive Care at [facility] [address] [facility] [address] [place], [place] [phone] Teri Ruth APRN, VEHICLE GLASS TECHNICIAN [address] [place] [address] documented as of this encounter Visit Diagnoses Not on filedocumented in this encounter Care Teams Honey Liquefier Relationship Specialty Start Date End Date Sheeba Castillo APRN, VEHICLE GLASS TECHNICIAN [address] [place] [address] PCP - General Nurse Practitioner 07/20/16 documented as of this encounter
--- OUTSIDE RECORDS SUMMARY | 2025-01-08 06:34 | XMS_ITS | Encounter Summary ---
Author Organization [employer] Address [address] [place] [address] Care Team Providers Care Glove Turner And Former Name Role Phone Sheeba Castillo APRN, CNP Primary Care Provid er Reason for Visit * Reason Comments UPDATE Encounter Details Date Type Department Care Team (Late st Contact Info) Description 01/07/2025 Telephone Digestive Care at [facility] [place] [address] [place] [address]. 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 Routing to nursing queue for team nursing to call patient back. documented in this encounter Plan of Treatment Upcoming Encounters Date Type Department Care Team (Late st Contact Info) Description 01/09/2025 9:00 AM CDT Appointment [facility]ty [facility] [address] [phone] Kiley Luo, PharmD 38[address] [place], [place] [address] 03/10/2025 7:50 AM CDT Telemedicine Digestive Care at [facility] and [facility] [address] [address] [address] [place], [place] [phone] Teri Ruth APRN, SECTION CREWS ACTIVITIES CLERK [address] [place] [address] documented as of this encounter Visit Diagnoses Not on filedocumented in this encounter Care Teams Glove Turner And Former Relationship Specialty Start Date End Date Sheeba Castillo APRN, SECTION CREWS ACTIVITIES CLERK [address] [place] [address] [place] [address] PCP - General Nurse Practitioner 07/20/16 documented as of this encounter
--- OUTSIDE RECORDS SUMMARY | 2025-01-08 06:34 | XMS_ITS ---
Author Organization [employer] Address [address] [place] [address] Care Team Providers Care Makeup Editor Name Role Phone Sheeba Castillo APRN, SIERRA [...] Therapy Plans No current plan information found. Other Current Plans risankizumab-rzaa (SKYRIZI) IV infusion* Plan Start Date:12/29/2024 Plan Provider:Eusebio Haines MD Linked Problems Other ulcerative colitis wit h rectal bleeding (HRC) Treatment Medications ALBUterol sulfate HFAaltepla se (CATHFLO ACTIVASE)diphenhydrAMINE (BENADRYL)EPINEPHrine (EPIPEN)famotidine (PEPCID)heparinheparin PF (Pork)methylPREDNISolone sodium succinate PF (SOLU-medrol)risankizumab-rzaa (SKYRIZI) 1200 mg in 250mL IVPB (infuse over 120 min)sodium chloride 0.9 %sodium chloride 0.9% Past Treatment and Therapy Plans Resolved Problems Problem Noted Date Diagnosed Date Resolved Date JANNET (generalized anxiety disorder) 01/18/2015 11/18/2015 Situational stress 01/18/2015 6 Chronic headaches 08/11/2011 12/17/2017 Concussion 08/11/2011 12/17/2017 Overview (01/27/2016): February 2008, thrown from horse. History of tobacco use 08/11/201112/17 Hx of tonsillectomy 08/11/2011 12/15/19 17 Female genital symptoms 12/19/200404/25 Overview (02/14/2017): LW Onset: [id number] ; Pelvic Pain Female Irritable bowel syndrome 11/29/2002
--- OUTSIDE RECORDS SUMMARY | 2025-01-08 06:34 | XMS_ITS | Clinical Summary ---
Author Organization [facility] Address [address] [place] [address] Care Team Providers Care Pharmacy Intern Name Role Phone Unavailable Primary Care Provider Unavailabl e Source Comments Patient records contain information from all sites at [facility]. For routine questions regarding patient records, call [phone] during business hours, M-F 8:00 AM - 5:00 PM Central Time. Record requests for emergency care only can be directed to [phone] at any time.[facility] Allergies No known active allergies Medications calcium [...] from 05/10/2021:Stage IA(pT2, pN0(sn), cM0, G2, ER+, VT+, HER2-) - Unsigned Pathologic stage from 05/10/2021:Stage IA(pT1a, pN0(sn), cM0, G1, ER-, VT-, HER2-) - Unsigned Social History Tobacco Use [...] slept in a long term (including now)? No 10/11/2021 Education Answer Date Recorded What is the highest level of school you have completed or the highest degree you have received? Associate degree: occupational, technical, or vocational program 10/11/2021 Comments Unknown Sex and Gender Information Value Date Recorded Sex Assigned at Female 10/11/2021 8:54 PM CDT Legal Sex Female 11:30 AM INSURANCE HEALTHCARE REPRESENTATIVE Gender Identity Female 10/11/2021 8:54 PM [...] 03/29/2021, Additional history exists COVID-19 Vaccine ( season) 2024 03/20/2023, 04/21/2022, 03/23/2021, Additional history exists Depression Screening (Annual PHQ-2) 06/25/2024 Influenza Vaccine (#1) 2025 , 2022, 03/23/2021, Additional history exists DTaP,Tdap,and Td [...] OUTSIDE MG MAMMOGRAM Routine 05/10/2021 1:50 PM INSURANCE HEALTHCARE REPRESENTATIVE from Last 3 Months or Most Recently Relevant to Health Maintenance Results * BREAST SURGICAL SPECIMEN-Outside Mammogram (05/10/2021 1:50 PM INSURANCE HEALTHCARE REPRESENTATIVE) Narrative [facility]IM[facility] - 05/25/2021 4:38 PM INSURANCE HEALTHCARE REPRESENTATIVE This order has been created and [...] Most Recently Relevant to Health Maintenance Insurance [facility]
--- OUTSIDE RECORDS SUMMARY | 2025-01-08 06:34 | XMS_ITS | Encounter Summary ---
Author Organization [facility] Address [address] [place] [address] Care Team Providers Care Congressional Assistant Name Role Phone Sheeba Castillo APRN, CNP Primary Care Provid er Reason for Visit * Reason Comments Refill OSCIMIN 0.125 MG sub lingual tablet [Pharmacy Med Name: OSCIMIN 0.125 MG SUBL 0.125 Tablet] Encounter Details Date Type Department Care Team (Late st Contact Info) Description 01/02/2025 Refill Digestive Care at [facility] at [address] 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 (unchanged) -> Refill x 12 months (until due for an office visit) -> Calculate the quantity and number of refills manually. Last qualifying visit: 12/08/2024 (in [facility] with ELLIE HAINES) Next scheduled visit: 03/10/2025 (in [facility] with TERI SPAIN) [employer] Embedded Refills, Reference: [id number], 01/02/2025 8:16:33 AM CDT, Pool: GI NURSING-PN ([id number]) documented in this encounter Plan of Treatment Upcoming Encounters Date Type Department Care Team (Late st Contact Info) Description 01/09/2025 9:00 AM CDT Appointment [facility] [address] [phone] Kiley Luo, PharmD [address] [place] [address] 03/10/2025 7:50 AM CDT Telemedicine Digestive Care at [facility] and Specialty [facility] [address] [facility] [address] [place], [place] [phone] Teri Spain APRN, CLINICAL ASSISTANT [address] [place], [place] [phone] documented as of this encounter Visit Diagnoses Diagnosis Irritable bowel syndrome, unspecified type documented in this encounter Care Teams Congressional Assistant Relationship Specialty Start Date End Date Sheeba Castillo APRN, CLINICAL ASSISTANT [id number] [place] [address] [place] [address] PCP - General Nurse Practitioner 07/20/16 documented as of this encounter
--- OUTSIDE RECORDS SUMMARY | 2025-01-08 06:34 | XMS_ITS | Encounter Summary ---
Author Organization [employer] Address [address] [place] [address] Care Team Providers Care Home Service Demonstrator Name Role Phone Sheeba Castillo APRN, CNP Primary Care Provid er Reason for Visit * Reason Comments RESULTS, TEST Encounter Details Date Type Department Care Team (Late st Contact Info) Description 12/10/2024 Telephone Digestive Care at [facility] at [address] 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 Haines's inbox * Beth Nichols, RN - 12/10/2024 7:56 AM CDT Labs received from [facility]. Labs results placed in Yancy's mailbox. documented in this encounter Plan of Treatment Upcoming Encounters Date Type Department Care Team (Late st Contact Info) Description 01/09/2025 9:00 AM CDT Appointment Specialty Center [facility] [address] [phone] Kiley Luo, PharmD [address] [place], [place] [phone] 03/10/2025 7:50 AM CDT Telemedicine Digestive Care at [facility] and Specialty [facility] [address] [facility] [address] [place], [place] [phone] Teri Ruth APRN, INTERVENTIONAL TECHNOLOGIST [address] [place] [address] documented as of this encounter Visit Diagnoses Not on filedocumented in this encounter Care Teams Home Service Demonstrator Relationship Specialty Start Date End Date Sheeba Castillo APRN, INTERVENTIONAL TECHNOLOGIST [address] [place] [address] MAGDALENA Dinh [address] PCP - General Nurse Practitioner 07/20/16 documented as of this encounter
--- OUTSIDE RECORDS SUMMARY | 2025-01-08 06:34 | XMS_ITS | Encounter Summary ---
Author Organization [facility] Address [address] [place] [address] Care Team Providers Care Er Tech Name Role Phone Sheeba Castillo APRN, CNP Primary Care Provid er Reason for Visit * Reason Comments Critical Lab Result Encounter Details Date Type Department Care Team (Late st Contact Info) Description 12/09/2024 Telephone Careline [address] 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 They are able to use current order. Pt was updated below. Sending to Dr. Haines as FYI * Chandrika Simms RN - 12/09/2024 5:43 PM CDT Clinician: Route to train gate attendant Patient/day care home mother request: [facility] called to report that the Stool Sample, GI pathogen panel by PCR - Incorrect- Collected on wrong media. The cup had a preservative. Needs to be recollected in a sterile urine cup. Specific Request: Please resend stool sample in correct medium. [facility] phone number [phone] 6:00 PM Outbound call to [facility]. Spoke to Demar. He stated that he will have Abdule call this RN with the information when he returns to the lab this evening. 6:06 PM Inbound call from [facility]- Correct GI parasite panel by [...] Critical/abnormal lab reported to [facility] calling with verbal report only - not on same charting system and unable to fax anything Phone number for Lab calling the result:[phone] Name of lab result being called: Stool Sample Date lab drawn: 12/09/2024 Lab result being reported: [facility] lab reports 2 stool cx dropped off one in correct media and other is not- reports the correct media should be a sterile cup(UA) OK) or carry Markos media Ordering Clinician: Luke Bourne MD Plan: CL Lead- Encounter routed to appropriate CareLine pool for critical lab management by CareLine RN. Katty Coulter RN, [facility] 5:29 PM 12/09/2024 documented in this encounter Plan of Treatment Upcoming Encounters Date Type Department Care Team (Late st Contact Info) Description 01/09/2025 9:00 AM CDT Appointment Specialty [facility] [address] [phone] Kiley Luo, PharmD [address] [place] [address] 03/10/2025 7:50 AM CDT Telemedicine Digestive Care at [facility] and Specialty [facility] [address] [facility] [address] [address] [place] [address] Teri Ruth, AGITATOR OPERATOR, [employer] [address] [place], [place] [address] documented as of this encounter Visit Diagnoses Not on filedocumented in this encounter Care Teams Er Tech Relationship Specialty Start Date End Date Sheeba Castillo, AGITATOR OPERATOR, [employer] [address] [place] MAGDALENA Dinh [address] PCP - General Nurse Practitioner 07/20/16 documented as of this encounter
--- OUTSIDE RECORDS SUMMARY | 2025-01-08 06:34 | XMS_ITS | Encounter Summary ---
Author Organization [employer] Address [address] [place] [address] Care Team Providers Care Commissioner Of Internal Revenue Name Role Phone Sheeba Castillo APRN, CNP Primary Care Provid er Reason for Referral * Consult/Transfer Care (Routine) - Work Comp Specialty Diagnoses / Procedures Referred By Contac t Referred To Contact Diagnoses Left sided colitis with rectal bleeding (HRC) Hematochezia Diarrhea, unspecified type Eusebio Haines MD [address] [place] [address] Phone: tel: fax: Referral ID Status Reason Start Date Expiration Date V isits Requested Visits Authorized [id number] Work Comp 12/21/2024 03/22/2026 1 1 Scheduling Instructions Your provider has recommended an appointment with one of our Medication Management Pharmacists. This involves a review of your medications to ensure they are safe, effective, and are helping you reach your health goals. You may call [phone] for help scheduling your appointment. We suggest you call your health insurance company about your coverage and benefits for this appointment. Question Answer Appointment Urgency? Non-Urgent Reason for visit? Ulcerative colitis: Please assist in getting patient approved and started on treatment with Skyrizi (vedolizumab treatment failure). Desired Service Location? 7377 Desired Pharmacist? 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 Response sent to patient via her [email or web address] account letting her know of the consultation and and to transition to [facility] (if her health plan covers it). documented in this encounter Plan of Treatment Upcoming Encounters Date Type Department Care Team (Late st Contact Info) Description 01/09/2025 9:00 AM CDT Appointment Specialty Center Pharmacy [facility] 435 [facility] [address] [place] [phone] Kiley Luo, PharmD [address] [place] [address] 03/10/2025 7:50 AM CDT Telemedicine Digestive Care at [facility] [address] [address] [address] [place], [place] [phone] Teri Ruth PROOF TESTER, TRANSITION COACH [address] [place], [place] [phone] Scheduled Referrals Name Type Priority Associated Diagnoses Orde r Schedule SPECIALTY PHARMACY-MEDICATION THERAPY MGMT-ADULT/PEDS Referral Routine Left sided colitis with rectal bleeding (HRC) Hematochezia Diarrhea, unspecified type Ordered: 12/21/2024 documented as of this encounter Visit Diagnoses Diagnosis Left sided colitis with rectal bleeding (HRC)- Primary Left sided ulcerative (chronic) colitis Hematochezia Blood in stool Diarrhea, unspecified type documented in this encounter Care Teams Commissioner Of Internal Revenue Relationship Specialty Start Date End Date Sheeba Castillo APRN, TRANSITION COACH [address] [facility] [place] [address] PCP - General Nurse Practitioner 07/20/16 documented as of this encounter
--- OUTSIDE RECORDS SUMMARY | 2025-01-08 06:34 | XMS_ITS | Encounter Summary ---
Author Organization [employer] Address [address] [place] [address] Care Team Providers Care Head Trimmer Name Role Phone Sheeba Castillo APRN, CNP Primary Care Provid er Reason for Visit * Reason Comments Outside Records on File Encounter Details Date Type Department Care Team (Late st Contact Info) Description 12/08/2024 Telephone Digestive Care at [facility] Specialty [place] at [address] 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 Placed in Dr. Haines's mailbox. documented in this encounter Plan of Treatment Upcoming Encounters Date Type Department Care Team (Late st Contact Info) Description 01/09/2025 9:00 AM CDT Appointment [facility] [address] [phone] Kiley Luo, PharmD [address] [place] [address] 03/10/2025 7:50 AM CDT Telemedicine Digestive Care at [facility] and [facility] [place] [address] [place] [address] [place] [address] Teri Ruth, ENGRAVER LETTER, GOLD AND SILVER ASSAYER [address] [place], [place] [address] documented as of this encounter Visit Diagnoses Not on filedocumented in this encounter Care Teams Head Trimmer Relationship Specialty Start Date End Date Sheeba Castillo APRN, GOLD AND SILVER ASSAYER [address] [place], [place] [address] PCP - General Nurse Practitioner 07/20/16 documented as of this encounter
--- OUTSIDE RECORDS SUMMARY | 2025-01-08 06:34 | XMS_ITS | Encounter Summary ---
Author Organization [employer] Address [address] [place] [address] Care Team Providers Care Color Drum Worker Name Role Phone Sheeba Castillo APRN, CNP Primary Care Provid er Reason for Visit * Reason Comments ORDERS Encounter Details Date Type Department Care Team (Late st Contact Info) Description 12/08/2024 Telephone Digestive Care at [facility] at [address] 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 Confirmation received. Placed in nursing folder documented in this encounter Plan of Treatment Upcoming Encounters Date Type Department Care Team (Late st Contact Info) Description 01/09/2025 9:00 AM CDT Appointment Specialty Center Pharmacy [facility] [address] [phone] Kiley Luo, PharmD [address] [place], [place] [address] 03/10/2025 7:50 AM CDT Telemedicine Digestive Care at [facility] [address] [address] [address] [place], [place] [phone] Teri Ruth DIGITAL LIBRARIAN, DIE MAKER TRIM [address] [place] [address] documented as of this encounter Visit Diagnoses Not on filedocumented in this encounter Care Teams Color Drum Worker Relationship Specialty Start Date End Date Sheeba Castillo APRN, DIE MAKER TRIM [address] [place] [address] [place] [address] PCP - General Nurse Practitioner 07/20/16 documented as of this encounter
--- OUTSIDE RECORDS SUMMARY | 2025-01-08 06:34 | XMS_ITS | Encounter Summary ---
Author Organization [facility] Address [address] [place] [address] Care Team Providers Care Offal Baler Name Role Phone Sheeba Castillo APRN, CAR REPAIRER PULLMAN Primary Care Provid er Encounter Details Date Type Department Care Team (Late st Contact Info) Description 12/30/2024 Specialty Pharmacy [facility] Specialty Outpatient Pharm[facility] [address] [place], [place] [address] Asuncion Del Rosario, PharmD Social History Tobacco Use Types Packs/Day Years [...] Sex Assigned at Female 05/09/2021 7:19 PM LABORATORY DEVELOPMENT TECHNICIAN Legal Sex Female 11:31 AM CDT Gender Identity Female 05/09/2021 7:19 PM LABORATORY DEVELOPMENT TECHNICIAN Sexual Orientation Straight 05/09/2021 7: 19 PM LABORATORY DEVELOPMENT TECHNICIAN 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 Not on file Not on file documented as of this encounter Plan of Treatment Upcoming Encounters Date Type Department Care Team (Late st Contact Info) Description 01/09/2025 9:00 AM CDT Appointment [facility] [place] [address] [place] [phone] Kiley Luo, PharmD [address] [place] [address] 03/10/2025 7:50 AM CDT Telemedicine Digestive Care at [facility] [address] [facility] [address] [address] [place], [place] [phone] Teri Ruth, RETAIL SALES ASSISTANT, CAR REPAIRER PULLMAN [address] [place], [place] [phone] documented as of this encounter Visit Diagnoses Not on filedocumented in this encounter Care Teams Offal Baler Relationship Specialty Start Date End Date Sheeba Castillo, RETAIL SALES ASSISTANT, CAR REPAIRER PULLMAN [address] [place] [address] [place] [address] PCP - General Nurse Practitioner 07/20/16 documented as of this encounter
--- OUTSIDE RECORDS SUMMARY | 2025-01-08 06:34 | XMS_ITS | Encounter Summary ---
Author Organization [employer] Address [address] [place] [address] Care Team Providers Care Clerical Adjuster Name Role Phone Sheeba Castillo APRN, CNP Primary Care Provid er Encounter Details Date Type Department Care Team (Late st Contact Info) Description 07/21/2016 Correspondence [facility] [address] [place] [address] Fernanda Lancaster, [employer] [address] [place], [place] [phone] DISABILITY CLAIM FAMILY MEDICAL LEAVE Social History Tobacco Use Types Packs/Day Years Used Date Smoking Tobacco: Former Cigarettes 0.3 15 1 06/25/1999 - 04/25/2015 Smokeless Tobacco: Never Alcohol Use Standard Drinks/Week Comments Yes 0 (1 standard drink = 0.6 oz pur e alcohol) rarely Comments No Sex and Gender Information Value Date Recorded Sex Assigned at Female 05/09/2021 7:19 PM HEAT TRANSFER TECHNICIAN Legal Sex Female 11:31 AM CDT Gender Identity Female 05/09/2021 7:19 PM HEAT TRANSFER TECHNICIAN Sexual Orientation Straight 05/09/2021 7: 19 PM HEAT TRANSFER TECHNICIAN 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 file Not on file documented as of this encounter Plan of Treatment Upcoming Encounters Date Type Department Care Team (Late st Contact Info) Description 01/09/2025 9:00 AM CDT Appointment [facility] [place] [address] [place] [phone] Kiley Luo, PharmD [address] [place], [place] [address] 03/10/2025 7:50 AM CDT Telemedicine Digestive Care at [facility] [address] [address] [address] [place], [place] [phone] Teri Ruth APRN, EXHAUST WORKER [address] [place] [address] documented as of this encounter Visit Diagnoses Not on filedocumented in this encounter Care Teams Clerical Adjuster Relationship Specialty Start Date End Date Sheeba Castillo APRN, EXHAUST WORKER [address] [place] [address] PCP - General Nurse Practitioner 07/20/16 documented as of this encounter
--- OUTSIDE RECORDS SUMMARY | 2025-01-08 06:34 | XMS_ITS | Clinical Summary ---
Author Organization [facility] Address [address] [place] [address] Care Team Providers Care Tax Compliance Officer Name Role Phone Sheeba Castillo APRN, CNP Primary Care Provid er Source Comments You are receiving this document as you are listed as the primary care provider,follow-up provider, or the patient has been referred to you for consultation.This is in compliance with the Medicare and[place] EHR Incentive Program,which states Providers who transition their patient to another setting of careor provider of care or refers their patient to another provider of care shouldprovide summary care record for each transition of care or referral. [facility] Allergies No known active allergies Medications Multiple Vitamin (MULTI-VITAMIN OR) Take 1 tablet by mouth daily (every 24 hours). 012 Active predniSONE (DELTASONE) 10 MG tabletIndications: Left sided colitis with rectal bleeding (HRC),Hematochezia ,Diarrhea, unspecified type,Tenesmus (rectal) Take 4 Tablets (40 mg) by mouth daily for 7 days, THEN 3 Tablets (30 mg) daily for 7 days, THEN 2 Tablets (20 mg) daily for 7 days, THEN 1.5 Tablets (15 mg) daily for 7 days, THEN 1 Tablet (10 mg) daily for 7 days, THEN 0.5 Tablets (5 mg) daily for 7 days. 84 Tablet 025 01/19 Active calcium carb-cholecalcifer ol 600-20 MG-MCG TABS Take 1 Tablet by mouth two times a day. Active oxyBUTYnin (DITROPANXL) 10 MG 24 hour release tablet Take 1 Tablet (10 mg) by mouth two times a day. Active traZODone (DESYREL) 50 MG tablet Take 1 Tablet (50 mg) by mouth daily at bedtime. Active tamoxifen (NOLVADEX) 20 MG tablet Take 1 Tablet (20 mg) by mouth daily. Active risankizumab-rzaa (SKYRIZI) 360 MG/2.4ML SOCT on-body injectorIndication s:Ulcerative rectosigmoiditis with rectal bleeding (HRC) Inject 2.4 mL (360 mg) subcutaneously every 8 weeks. (Maintenance, starting Week 12). See detailed Instructions for use. 1 Each 6 025 Active hyoscyamine (OSCIMIN) 0.125 MG sublingual tabletIndications: Irritable bowel syndrome, unspecified type PLACE 2 TABLETS (0.25 MG) UNDER TONGUE EVERY 4 HOURS NEEDED FOR CRAMPING. 60 Tablet 2 025 Active dicyclomine (BENTYL) 20 MG tablet TAKE 1 TABLET BY MOUTH 4 TIMES DAILY NEEDED 360 Tablet 025 Active Calcium Carbonate Antacid 1000 MG Take by mouth. 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 0 022 12/29 Discontinued( Ineffective for condition) dicyclomine (BENTYL) 20 MG tablet TAKE 1 TABLET BY MOUTH 4 TIMES DAILY NEEDED 360 Tablet 025 01/05 Discontinued hyoscyamine (OSCIMIN) 0.125 MG sublingual tabletIndications: Irritable bowel syndrome, unspecified type PLACE 2 TABLETS (0.25 MG) UNDER TONGUE EVERY 4 HOURS NEEDED FOR CRAMPING. 60 Tablet 1 025 01/06 Discontinued Active Problems Problem Noted Date Diagnosed [...] genital symptoms 12/19/200404/25 Overview (02/14/2017): LW Onset: [id number] ; Pelvic Pain Female Irritable bowel syndrome 11/29/2002 Encounters Date Type Department Care Team Description 01/07/2025 Nurse Triage [facility] [address] [place] [phone] Unassigned, Provider COLITIS, ULCERATIVE; ABDOMINAL PAIN 01/07/2025 Telephone Digestive Care at [facility] at [address] [place] [address] Eusebio Haines MD UPDATE 01/05/2025 Refill Digestive Care at [facility] at [address] [place] [address] Teri Ruth APRN, CNP Refill (dicyclomine (BENTYL) 20 MG tablet [Pharmacy Med Name: DICYCLOMINE HCL 20 MG TAB 20 Tablet]) 01/02/2025 Refill Digestive Care at [facility] at [address] 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 [address] [address] Eusebio Haines MD Dx: Left sided colitis with rectal bleeding (HRC) (Primary Dx) 12/11/2024 Telephone Digestive Care at [address] [place] [address] Eusebio Haines MD RESULTS, TEST 12/10/2024 Telephone [facility] at [address] [place] [address] Eusebio Haines MD RESULTS, TEST 12/09/2024 Orders Only HIM DEPARTMENT Provider, MD Angelica 12/09/2024 Telephone [facility]line [address] [place] [address] Eusebio Haines MD Critical Lab Result 12/08/2024 10:40 AM CDT Office Visit Digestive Care at [address] [address] Eusebio Haines MD Left sided colitis with rectal bleeding (HRC) (Primary Dx); Hematochezia; Diarrhea, unspecified type; Tenesmus (rectal) 12/08/2024 Telephone Digestive Care at [facility] at [address] [place] [address] Eusebio Haines MD ORDERS 12/08/2024 Telephone Digestive Care at [facility] at [address] 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 at [address] [place] [address] Eusebio Haines MD 10/24/2024 12:20 PM CDT E-Visit Dig[facility]ive Care at [address] [address] Teri Ruth, SERVICE CORRESPONDENT, RIGGER HELPER Chief Comp: QUESTIONS, GENERAL 10/23/2024 Refill Digestive Care at [facility] at [address] [place] [address] Teri Ruth, SERVICE CORRESPONDENT, RIGGER HELPER Refill (OSCIMIN 0.125 MG sublingual tablet [Pharmacy Med Name: OSCIMIN 0.125 MG SUBL 0.125 Tablet]) from Last 3 Months Immunizations Immunization Administration Dates Next Due Flu Vac (3+ yrs) 03/27/2024 Flu Vac Preserv Free (3+yrs) 03/04/2012, 03/10/2011,03/10/2010,2008,04/17/2008,04/08/2008,04/03/2007,1 Fluzone Qiv Multidose Vial 0 .25 (6-35 Mos) 03/23/2021 H1n1 Laiv Medimmune 2-49 Yr (Intranasal) 04/13/2009 H1n1 Miv Sanofi 3+ Yr (Injected) 06/09/2013 HepB Adult (Engerix-B, 20+ y rs, 3 dose series) 02/08/2006,01/02/2002 HepB, Unspecified Formulation 08/09/2001 Influenza IIV4 (Quadrivalent ) 0.5mL (37409) 03/20/2023,2022,03/31/2019,2017,03/21/2018,03/26/2017,03/23/2016,0 03/24/2015,03/23/2014 PCV20 (Eanckrq54) 03/10/2022(Deferred: Patient Refused - Patient will complete at a later date) Pfizer Bivalent 12+ 04/21/2022 Pfizer COVID-19 12+ 03/27/2024 Pfizer COVID-19 6m-4 03/20/2023 Pfizer Monovalent 12+ Purple Top 03/23/2021,06/25,06/16/2020 TDAP (ADACEL) 07/04/2010 Td 11/30/2003 Tdap 02/11/2021 Zoster RZV (Shingrix) 08/03/2022,03/14/2019 Family History Medical History Relation Name Comments [...] Sex Assigned at Female 05/09/2021 7:19 PM TESTER ARMATURE OR FIELDS Legal Sex Female 11:31 AM CDT Gender Identity Female 05/09/2021 7:19 PM TESTER ARMATURE OR FIELDS Sexual Orientation Straight 05/09/2021 7: 19 PM TESTER ARMATURE OR FIELDS 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 Not on file Not on file Last Filed Vital Signs Vital Sign Reading Time Taken Comments Blood Pressure 108/63 04/28/2024 11:25 AM TESTER ARMATURE OR FIELDS Pulse 79 04/28/2024 11:25 AM TESTER ARMATURE OR FIELDS Temperature 36.8 C (98.2 F) 05/12/2022 2:52 PM TESTER ARMATURE OR FIELDS Respiratory Rate 16 04/28/2024 11:25 AM TESTER ARMATURE OR FIELDS Oxygen Saturation 95% 04/28/2024 11:25 AM TESTER ARMATURE OR FIELDS Inhaled Oxygen Concentration - - Weight 82.1 kg (181 lb) 12/08/2024 10:39 AM CDT Height 167.6 cm (5' 6) 04/28/2024 9:53 AM TESTER ARMATURE OR FIELDS Body Mass Index 29.21 04/28/2024 9:53 AM TESTER ARMATURE OR FIELDS Plan of Treatment Upcoming Encounters Date Type Department Care Team (Late st Contact Info) Description 01/09/2025 9:00 AM CDT Appointment Specialty Center [facility] [address] [address] Kiley Luo, PharmD [address] [place] [address] 03/10/2025 7:50 AM CDT Telemedicine Digestive Care at [facility] [address] [place], [place] [address] Teri Ruth, SERVICE CORRESPONDENT, RIGGER HELPER [address] [place], [place] [phone] Health Maintenance Due Date Last Done Comments [...] 12/03/2024 COLONOSCOPY SCREENING Routine 04/28/2024 10:22 AM TESTER ARMATURE OR FIELDS Left sided colitis with rectal bleeding (HRC) [...] lt * Colonoscopy Screening (04/28/2024 10:22 AM TESTER ARMATURE OR FIELDS) Anatomical Region Laterality Modality Other 04/28/2024 10:2 2 AM TESTER ARMATURE OR FIELDS Narrative 04/28/2024 10:22 AM TESTER ARMATURE OR FIELDS Patient Name: Idania Galeana Procedure Date: 04/28/2024 [...] and oxygen saturations were monitored continuously. The [id number] was introduced through the anus and advanced [...] from the initial medication administration until the sales trainer assists with initial maneuvers (biopsy / polypectomy [...] GI clinic. Procedure Code(s): --- Professional --- 04882, Colonoscopy, flexible; with biopsy, single or multiple G0500, Moderate sedation services provided by the same physician or other qualified health behavioral health care manager performing a gastrointestinal endoscopic service that sedation supports, requiring the presence of an independent trained observer to assist in the monitoring of the patient's level of consciousness and physiological status; initial 15 minutes of intra-service time; patient age 5 years or older (additional time may be reported with 13180, as appropriate) Diagnosis Code(s): --- Professional --- D12.2, Benign neoplasm of ascending colon K63.89, Other specified diseases of intestine K51.20, Ulcerative (chronic) proctitis without complications K51.40, Inflammatory polyps of colon without complications K92.1, Melena (includes Hematochezia) K51.50, Left sided colitis without complications CPT copyright 2021 [employer]. All rights reserved. The codes documented in this report are preliminary and upon woodworking craftsman review may be revised to meet current [...] and oxygen saturations were monitored continuously. The [id number] was introduced through the anus and advanced [...] from the initial medication administration until the sales trainer assists with initial maneuvers (biopsy / polypectomy [...] GI clinic. Procedure Code(s): --- Professional --- 50802, Colonoscopy, flexible; with biopsy, single or multiple G0500, Moderate sedation services provided by the same physician or other qualified health behavioral health care manager performing a gastrointestinal endoscopic service that sedation supports, requiring the presence of an independent trained observer to assist in the monitoring of the patient's level of consciousness and physiological status; initial 15 minutes of intra-service time; patient age 5 years or older (additional time may be reported with 31917, as appropriate) Diagnosis Code(s): --- Professional --- D12.2, Benign neoplasm of ascending colon K63.89, Other specified diseases of intestine K51.20, Ulcerative (chronic) proctitis without complications K51.40, Inflammatory polyps of colon without complications K92.1, Melena (includes Hematochezia) K51.50, Left sided colitis without complications CPT copyright 2021 [employer]. All rights reserved. The codes documented in this report are preliminary and upon woodworking craftsman review may be revised to meet current compliance requirements. Мария Rasmussen MD 04/28/2024 11:05:58 AM This document has been electronically signed. Number of Addenda: 0 Note Initiated On: 04/28/2024 10:22 AM Endoscopy Report Teri Ruth SERVICE CORRESPONDENT, RIGGER HELPER ET GI PROCEDURE ORDER GLORIA Final Result * Lipid Panel and Direct LDL(If Needed) (04/08/2020 3:56 PM CDT) Cholesterol 175 0 - 199 mg/dL 04/08/2020 4:39 PM CDT [facility] Triglyceride 108 <=149 mg/dL 04/08/2020 4:39 PM T [facility] HDL Cholesterol 59 >=40 mg/dL 0 4:39 PM T [facility] LDL, Calculated 94 <130 mg/dL 0 4:39 PM T [facility] Non HDL Chol, Calculated 116 mg/dL 04/08/2020 4:39 PM T [facility] Cholesterol/HDL Ratio 3.0 04/08/2020 4:39 PM T [facility] Hours Fasting 4 04/08/2020 4:39 PM CDT [facility] Blood Venipuncture / Unknown 04/08/2020 3:56 PM CDT 04/08/2020 3:56 PM CDT Idania Andrade MD LAB_1 Final Result Performing Organization Address City/[facility]/ZIP Co de Phone Number [facility] [address] [place] [address] [phone] * Hgb A1C (12/19/2018 4:30 PM CDT) Hemoglobin A1C 5.5 <=5.6 % 12/20/2018 9:23 AM CDT [facility] Blood Venipuncture / Unknown 12/19/2018 4:30 PM CDT 12/19/2018 4:30 PM CDT Idania Andrade MD LAB_1 Final Result [facility] [address] [place], [place] [id number] [place] [address] * MM Mammogram Screening Bilat W CAD [...] There is no radiographic evidence of malignancy. us Idania Andrade MD RAD STEPHANE Final Result * Pap Smear (12/17/2017 4:23 PM CDT) 12/17/2017 4:23 PM CDT Narrative PN SOFT - 12/25/2017 5:11 PM CDT FINAL GYNECOLOGICAL CYTOLOGY REPORT Pathology #: [id number] Date Obtained: 12/17/2017 Date Received: 12/18/2017 INTERPRETATION/RESULTS: [...] and false-negative reports may occur. Performed at [address] [address] us Idania Andrade MD LAB_1 Final Result [address] [address] * HIV ANTIBODY (03/24/2015 11:39 AM CDT) HIV 1/HIV 2 Non-React Non-Reacti ve HP CONVERSION 03/24/2015 11:3 9 AM CDT 03/24/2015 2:53 PM CDT Narrative HP CONVERSION - 03/25/2015 12:01 AM CDT Performed at [address] [place] [address] Kinga Pickett APRN, RIGGER HELPER LAB_1 Vicenta l Result HP CONVERSION * Hepatitis C Antibody, with Reflex (03/24/2015 11:39 AM CDT) Hepatitis C Antibody Non-React Non-Reacti ve HP CONVERSION 03/24/2015 11:3 9 AM CDT 03/24/2015 2:53 PM CDT Narrative HP CONVERSION - 03/24/2015 9:00 PM CDT Performed at [address] [address] Kinga Pickett APRN, CNP LAB_1 Vicenta payton Result Performing Organization Address City/[facility]/ZIP Co de Phone Number HP CONVERSION from Last 3 Months or Most Recently Relevant to Health Maintenance Insurance [facility] HP COMM [facility] FAMILY DENTAL Advance Directives * Full Code (Latest Code Status on File) Date Activated Date Inactivated Comments 04/30/2019 7:39 PM 05/05/2019 4:05 PM * Full Code Date Activated Date Inactivated Comments 07/25/2016 4:15 PM 07/30/2016 4:47 PM * Full Code Date Activated Date Inactivated Comments 07/12/2016 1:10 PM 07/12/2016 9:07 PM Care Teams Tax Compliance Officer Relationship Specialty Start Date End Date Sheeba Castillo, SERVICE CORRESPONDENT, RIGGER HELPER [address] [place] [address] PCP - General Nurse Practitioner 07/20/16
--- OUTSIDE RECORDS SUMMARY | 2025-01-08 06:34 | XMS_ITS | Encounter Summary ---
Author Organization [facility] Address [address] [place] [address] Care Team Providers Care Manager Placement Name Role Phone Sheeba Castillo APRN, CNP Primary Care Provid er Encounter Details Date Type Department Care Team (Latest Contact Info) Description 12/09/2024 Orders Only [facility] DEPARTMENT Provider, [place] [address] Social History Tobacco Use Types Packs/Day Years [...] Assigned at Female 05/09/2021 7:19 PM DIE FILER Legal Sex Female 11:31 AM CDT Gender Identity Female 05/09/2021 7:19 PM DIE FILER Sexual Orientation Straight 05/09/2021 7: 19 PM DIE FILER 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 Not on file Not on file documented as of this encounter Plan of Treatment Upcoming Encounters Date Type Department Care Team (Late st Contact Info) Description 01/09/2025 9:00 AM CDT Appointment [facility] [address] [address] Kiley Luo, PharmD [address] [place] [address] 03/10/2025 7:50 AM CDT Telemedicine Digestive Care at [facility] [address] [address] [address] [place], [place] [phone] Teri Ruth, CELLO TEACHER, DIRECTOR INFORMATION SECURITY [address] [place], [place] [phone] documented as of this encounter Procedures Procedure Name Priority Date/Time Associated Diagnosis Comments LABORATORY REPORT 12/09/2024 documented in this encounter Results * LABORATORY REPORT (12/09/2024) us Interface Provider MD DUMMY/OTHER/AR Final Resu lt documented in this encounter Visit Diagnoses Not on filedocumented in this encounter Care Teams Manager Placement Relationship Specialty Start Date End Date Sheeba Castillo APRN, DIRECTOR INFORMATION SECURITY [address] [place] [address] [place] [address] PCP - General Nurse Practitioner 07/20/16 documented as of this encounter
--- OUTSIDE RECORDS SUMMARY | 2025-01-08 06:34 | XMS_ITS | Encounter Summary ---
Author Organization [facility] Address [address] [place] [address] Care Team Providers Care Crating And Moving Estimator Name Role Phone Sheeba Castillo APRN, CNP Primary Care Provid er Reason for Visit * Reason Comments Refill OSCIMIN 0.125 MG sub lingual tablet [Pharmacy Med Name: OSCIMIN 0.125 MG SUBL 0.125 Tablet] Encounter Details Date Type Department Care Team (Late st Contact Info) Description 10/23/2024 Refill Digestive Care at [facility] Specialty Center at [facility] [address] [place] [address]. 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 Last qualifying visit: 08/04/2024 (in [facility] with TERI SPAIN) Next scheduled visit: None [facility] Embedded Refills, Reference: [id number], 10/23/2024 9:02:03 AM CDT, Pool: GI NURSING-PN ([id number]) documented in this encounter Plan of Treatment Upcoming Encounters Date Type Department Care Team (Late st Contact Info) Description 01/09/2025 9:00 AM CDT Appointment [facility] [place] [address] [address] Kiley Luo, PharmD [address] [place], [place] [address] 03/10/2025 7:50 AM CDT Telemedicine Digestive Care at [facility]ty [facility] [address] [facility] [address] [place], [place] [phone] Teri Spain, [id number] ARMOR CREWMAN, PRODUCTION DIRECTOR [address] [place], [place] [address] documented as of this encounter Visit Diagnoses Diagnosis Irritable bowel syndrome, unspecified type documented in this encounter Care Teams Crating And Moving Estimator Relationship Specialty Start Date End Date Sheeba Castillo APRN, PRODUCTION DIRECTOR [address] [place] [id number] PCP - General Nurse Practitioner 07/20/16 documented as of this encounter
--- OUTSIDE RECORDS SUMMARY | 2025-01-08 06:34 | XMS_ITS ---
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 Past Treatment and Therapy Plans No past plan information found. 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
[2025-01-08 07:23] LABS: Hematocrit 37.2 % (33.0-51.0); Hemoglobin* 11.8 gm/dL (12.0-16.0); Immature Granulocytes Abs Auto 0.07 K/uL (0.00-0.30); Immature Granulocytes Pct Auto 0.8 %; Lymphocytes Absolute Auto 2.71 K/uL (0.90-2.90); Mean Corpuscular HGB Conc 32 gm/dL (32-36); Mean Corpuscular Hemoglobin 30 pg (26-34); Mean Corpuscular Volume 95 fL (80-100); RDW Coefficient of Variation % 13.0 % (11.5-15.5); Red Blood Count 3.92 m/uL (4.00-5.20); White Blood Count* 8.67 K/uL (4.50-11.00)
[2025-01-08 07:24] LABS: Slide Review Reflex No
--- OUTSIDE RECORDS SUMMARY | 2025-01-08 07:27 | XMS_ITS | Clinical Summary ---
Author Organization [facility] Address [address] [place] [address] Care Team Providers Care Flower Picker Name Role Phone Noemi Abernathy MD Primary Care Provider + Noemi Abernathy MD Unavailable [phone] Medications No known medications Active Problems No [...] 16 Negative Negative 02/15/2021 5:05 AM CDT [facility] TR[facility] LAB[facility] TYPE 18 Negative Negative 02/15/2021 5:05 AM CDT [facility] TRAL LABORATORY OTHER HIGH RISK TYPES Negative Negative 02/15/2021 5:05 AM CDT [facility] TRA LABORATORY Other (Cervical/Vagina l) 02/11/2021 12:00 PM CDT 02/14/2021 7:24 AM CDT Narrative [facility] - 02/15/2021 5:05 AM CDT HPV types 16, 18, 31, 33, 35, 39, 45, 51, 52, 56, 58, 59, 66 and 68 DNA were undetectable or below the pre-set threshold. Methodology: Lul Robyn 4800 HPV Test us Noemi Abernathy MD 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 Final Re sult [facility] [address] [place] [address], from Last 3 Months or Most Recently Relevant to Health Maintenance Insurance [facility] SHARED SERVICES [facility] SHARED SERVICES Care Teams Flower Picker Relationship Specialty Start Date End Date Noemi Abernathy MD [address] [place] [address] PCP - General Family Practice 04/08/24 Noemi Abernathy MD [address] [place] [address] Family Practice 04/08/24
[2025-01-08 07:37] LABS: Chloride* 100 mmol/L (96-114); Potassium* 3.8 mmol/L (3.6-5.1); Sodium* 135 mmol/L (135-149)
--- NOTE | 2025-01-08 07:38 | ED.ABDPAIN ---
HPI - Abdominal Pain General Date Seen: 01/08/25 <Eusebio Garcia MD - Last Filed: 01/14/25 02:17> Chief Complaint: Abdominal Pain <Eusebio Garcia MD - Last Filed: 01/14/25 02:17> Stated Complaint: abdominal pain, cramping <Eusebio Garcia MD - Last Filed: 01/14/25 02:17> Time Seen by Provider: 01/08/25 07:01 <Eusebio Garcia MD - Last Filed: 01/14/25 02:17> Source: patient <Eusebio Garcia MD - Last Filed: 01/14/25 02:17> Mode of arrival: ambulatory <Eusebio Garcia MD - Last Filed: 01/14/25 02:17> Limitations: no limitations <Eusebio Garcia MD - Last Filed: 01/14/25 02:17> History of Present Illness HPI narrative: Pt is a 49 yo female who has been dealing with a UC flare for the past 8 months. She has been switched from Remicade to Entyvio. She has had her Entyvio frequency increased from every 8 weeks to every 4 weeks. She has been on Prednisone and that was increased back to 60 mg daily 10 days ago. She is still having 15 grossly bloody stools daily and her lopwer abdominal pain is worsening. She went to last night and was given Zofran. She called her GI doctor - Dr Polanco at [facility] but did not receive a call back. She is feeling weaker. No fevers. No scope since last year. <Eusebio Garcia MD - Last Filed: 01/14/25 02:17> Pt is a 49 yo female who has been dealing with a UC flare for the past 8 months. She has been switched from Remicade to Entyvio. She has had her Entyvio frequency increased from every 8 weeks to every 4 weeks. She has been on Prednisone and that was increased back to 60 mg daily 10 days ago. She is still having 15 grossly bloody stools daily and her lopwer abdominal pain is worsening. She went to last night and was given Zofran. She called her GI doctor - Dr Polanco at [facility] but did not receive a call back yet. She is feeling weaker. No fevers. No scope since last year. <Eusebio Millan MD - Last Filed: 01/08/25 11:34> Related Data Home Medications: Home Medications ?Medication ?Instructions ?Recorded ?Confirmed multivitamin 1 tab PO QAM 02/28/22 01/08/25 vedolizumab 300 mg intravenous 300 mg IV Q8W 05/29/22 01/07/25 solution (Entyvio) hyoscyamine sulfate 0.125 mg 0.125 mg PO Q4H PRN 07/14/22 01/08/25 sublingual tablet calcium carbonate (Calcium 600) 1,200 mg PO DAILY 02/27/23 01/08/25 cetirizine 10 mg capsule 10 mg PO DAILY 01/08/25 01/08/25 dicyclomine 20 mg tablet 20 mg PO QID PRN 01/08/25 01/08/25 tamoxifen 20 mg tablet 20 mg PO DAILY 01/08/25 01/08/25 trazodone 50 mg tablet 50 - 100 mg PO QHS 01/08/25 01/08/25 Previous Rx's ?Medication ?Instructions ?Recorded oxybutynin chloride 5 mg tablet 10 mg (2 x 5 mg) PO BID #180 tabs 07/01/24 ondansetron 4 mg disintegrating 4 mg PO Q6H PRN nausea and 01/07/25 tablet vomiting #30 tabs acetaminophen 325 mg tablet 1,000 mg (3.0769 x 325 mg) PO Q6H 01/11/25 PRN #100 tabs oxycodone 5 mg capsule 2.5 - 5 mg (0.5 - 1 x 5 mg) PO Q6H 01/11/25 PRN pain #5 caps prednisone 20 mg tablet 60 mg (3 x 20 mg) PO DAILY 14 days 01/11/25 #42 tabs <Eusebio Garcia MD - Last Filed: 01/14/25 02:17> Allergies/Adverse Reactions: Allergies Allergy/AdvReac Type Severity Reaction Status Date / Time No Known Allergies Allergy Unknown Verified 01/08/25 06:44 <Eusebio Garcia MD - Last Filed: 01/14/25 02:17> Review of Systems Narrative ROS is also positive for breast cancer but is otherwise noted to be negative. <Eusebio Garcia MD - Last Filed: 01/14/25 02:17> [facility] Medical History: Medical History (Updated 01/11/25 @ 09:03 by Aspen Estrada MD) Umbilical hernia ?K42.9 - Umbilical hernia without obstruction or gangrene (ICD-10) Neck pain ?M54.2 - Cervicalgia (ICD-10) Lumbar back pain with radiculopathy affecting left lower extremity ?M54.16 - Radiculopathy, lumbar region (ICD-10) Visit for review of DEXA scan (02/2022) ?Z71.2 - Person consulting for explanation of examination or test findings (ICD-10) Ulcerative colitis (2017) ?K51.90 - Ulcerative colitis, unspecified, without complications (ICD-10) Malignant neoplasm of left breast (2020) ?C50.912 - Malignant neoplasm of unspecified site of left female breast (ICD-10) Malignant melanoma (2008) ?C43.9 - Malignant melanoma of skin, unspecified (ICD-10) Hypertension ?I10 - Essential (primary) hypertension (ICD-10) History of Clostridioides difficile infection (2016) ?Z86.19 - Personal history of other infectious and parasitic diseases (ICD-10) Chronic headache disorder ?R51.9 - Headache, unspecified (ICD-10) ?G89.29 - Other chronic pain (ICD-10) Chemotherapy-induced diarrhea ?K52.1 - Toxic gastroenteritis and colitis (ICD-10) ?T45.1X5A - Adverse effect of antineoplastic and immunosuppressive drugs, initial encounter (ICD-10) Hot flashes ?R23.2 - Flushing (ICD-10) <Eusebio Garcia MD - Last Filed: 01/14/25 02:17> Surgical History: Surgical History History of total hysterectomy with bilateral salpingo-oophorectomy (BSO) (05/2022) ?Z90.710 - Acquired absence of both cervix and uterus (ICD-10) ?Z90.722 - Acquired absence of ovaries, bilateral (ICD-10) ?Z90.79 - Acquired absence of other genital organ(s) (ICD-10) History of tonsillectomy (1986) ?Z90.89 - Acquired absence of other organs (ICD-10) History of removal of cyst ?Z98.890 - Other specified postprocedural states (ICD-10) History of lumpectomy of left breast (05/10/21) ?Z98.890 - Other specified postprocedural states (ICD-10) History of laparoscopic cholecystectomy (07/12/16) ?Z90.49 - Acquired absence of other specified parts of digestive tract (ICD-10) History of colonoscopy (2011) ?Z98.890 - Other specified postprocedural states (ICD-10) <Eusebio Garcia MD - Last Filed: 01/14/25 02:17> Family History: Family History Brother Basal cell carcinoma Maternal Grandfather Prostate cancer <Eusebio Garcia MD - Last Filed: 01/14/25 02:17> Social History: Social History Narrative: 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, 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[employer], 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, 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 Exercises 5 to 6 times per week- run/ walk, elliptical, dog walking, quarter horse Obi Non-smoker- quit year 5/day rare alcohol use What is your current living situation?: I presently have a place to live Problems where you live: no known problems Problems where you live details: NA In the past 12 months, utilities in danger of being shut off: no In past 12 months, lack of transportation kept you from medical appts, meetings, work, or getting things needed for daily living: no In the past 12 mos, have been you worried that your food would run out before you had money to buy more?: never true In the past 12 mos, the food you bought just didn't last and you didn't have money to buy more?: never true Highest level of school completed/degree received: Associate degree: occupational, technical, vocational program Smoking Status: Never smoker Second hand tobacco smoke exposure: No How often do you have a drink containing alcohol: never How often do you have six or more drinks on one occasion: Never AUDIT-C Alcohol total score: 0 Non-prescribed substance use: denies use Caffeine: Yes (pepsi) How often does anyone, including family, friends and others, physically hurt you: never How often does anyone, including family, friends and others, insult or talk down to you: never How often does anyone, including family, friends and others, threaten you with harm: never How often does anyone, including family, friends and others, scream or curse at you: never service: No <Eusebio Garcia MD - Last Filed: 01/14/25 02:17> Exam Narrative: Exam Narrative: Vitals noted. HEENT: Conjunctiva clear. Lungs: Clear to auscultation in all monahan. No wheezes, rales, rhonchi. Heart: Regular rate and rhythm without murmur. Abdomen: Soft with mild generalized tenderness. Bowel sounds are normal. Extremities: No cyanosis or edema. Good distal pulses. Skin: No abnormalities noted of the exposed skin. Neurologic: Awake, alert, fully oriented. Neurologic exam is nonfocal. <Eusebio Garcia MD - Last Filed: 01/14/25 02:17> Const: Vital Signs, click to edit/add: Vital Signs - 24 hr 01/08/25 06:39 01/08/25 07:34 01/08/25 07:49 Temperature 98.3 F Pulse Rate [Pulse Oximeter] 116 H 98 Respiratory Rate 16 Blood Pressure [Le ft Upper Arm] 146/81 H 129/78 Pulse Oximetry 94 95 Oxygen Delivery Me thod Room Air Room Air 01/08/25 08:42 01/08/25 09:38 01/08/25 09:42 Temperature Pulse Rate [Pulse Oximeter] 85 91 Respiratory Rate Blood Pressure [Le ft Upper Arm] Pulse Oximetry 86 L 87 L 92 Oxygen Delivery Me thod Room Air Room Air Room Air 01/08/25 10:32 Temperature Pulse Rate [Pulse Oximeter] 92 Respiratory Rate 16 Blood Pressure [Le ft Upper Arm] 116/69 Pulse Oximetry 90 Oxygen Delivery Me thod Room Air <Eusebio Garcia MD - Last Filed: 01/14/25 02:17> Vital Signs, click to edit/add: Vital Signs - 24 hr 01/08/25 06:39 01/08/25 07:34 01/08/25 07:49 Temperature 98.3 F Pulse Rate [Pulse Oximeter] 116 H 98 Respiratory Rate 16 Blood Pressure [Le ft Upper Arm] 146/81 H 129/78 Pulse Oximetry 94 95 Oxygen Delivery Me thod Room Air Room Air 01/08/25 08:42 01/08/25 09:38 01/08/25 09:42 Temperature Pulse Rate [Pulse Oximeter] 85 91 Respiratory Rate Blood Pressure [Le ft Upper Arm] Pulse Oximetry 86 L 87 L 92 Oxygen Delivery Me thod Room Air Room Air Room Air 01/08/25 10:32 Temperature Pulse Rate [Pulse Oximeter] 92 Respiratory Rate 16 Blood Pressure [Le ft Upper Arm] 116/69 Pulse Oximetry 90 Oxygen Delivery Me thod Room Air <Eusebio Millan MD - Last Filed: 01/08/25 11:34> Course Course ED Course: Patient seen and examined. She does not have an acute abdomen. Her hemoglobin has dropped. I attempted to contact her GI specialist but they are not answering calls until 8:00 a.m.. I Will try again at that time. Yana -- inherited this patient at change of shift. Reviewed records. Extended flare of ulcerative colitis without acute abdomen. Has been having numerous bloody stools throughout the day not affected by changes in medication and persistent significant midline low abdominal. Further has experienced nausea. Hemoglobin has dropped from 13.1 to 11.8 over the last 10 days. Noting how she felt much better after some IV hydration at last visit she would appreciate some fluids when offered. At this time pending conversation/consultations/recommendations from GI specialist. Nursing reporting that oxygen saturations will dip to 88% intermittently. Ms. Galeana wide awake at this time. No sleep apnea suspected. She is not feeling short of breath or otherwise bother. Did manage to reach Dr. Collin Richards in GI. Would recommend screening again for C diff. if this is normal then as has not appear to be responding to oral corticosteroids would recommend admission for IV corticosteroids with something like methylprednisolone 20 mg q.8 hours for 2 or 3 days. If seems to be compensating otherwise than might need to be transferred and and given rescue therapy with something like Rinvoq. He works out at [employer]. Apparently request had been made for outpatient management with [facility] but approval from insurance company is pending. Pending yet C diff and stool culture. Unfortunately I understand that she has taken something to slow up bowels this morning. Given little coffee here in the ER. Discussed with our hospitalist for admission who is thankfully accepting. Initiating 1st dose of methylprednisolone. <Eusebio Garcia MD - Last Filed: 01/14/25 02:17> Patient seen and examined. She does not have an acute abdomen. Her hemoglobin has dropped. I attempted to contact her GI specialist but they are not answering calls until 8:00 a.m.. I Will try again at that time. Yana -- inherited this patient at change of shift. Reviewed records. Extended flare of ulcerative colitis without acute abdomen. Has been having numerous bloody stools throughout the day not affected by changes in medication and persistent significant midline low abdominal. Further has experienced nausea. Hemoglobin has dropped from 13.1 to 11.8 over the last 10 days. Noting how she felt much better after some IV hydration at last visit she would appreciate some fluids when offered. At this time pending conversation/consultations/recommendations from GI specialist. Nursing reporting that oxygen saturations will dip to 88% intermittently. Ms. Galeana wide awake at this time. No sleep apnea suspected. She is not feeling short of breath or otherwise bother. Did manage to reach Dr. Collin Richards in GI. Would recommend screening again for C diff. if this is normal then as has not appear to be responding to oral corticosteroids would recommend admission for IV corticosteroids with something like methylprednisolone 20 mg q.8 hours for 2 or 3 days. If seems to be compensating otherwise than might need to be transferred and and given rescue therapy with something like Rinvoq. He works out at [employer]. Apparently request had been made for outpatient management with [facility] but approval from insurance company is pending. Pending yet C diff and stool culture. Unfortunately I understand that she has taken something to slow up bowels this morning. Given little coffee here in the ER. Discussed with our hospitalist for admission who is thankfully accepting. Initiating 1st dose of methylprednisolone. <Eusebio Millan MD - Last Filed: 01/08/25 11:34> Vital Signs Vital signs: Initial Vital Signs Temperature 98.3 F 01/08/25 06:39 Temperature Source Temporal Artery Scan 01/08/25 06:39 Pulse Rate 116 H 01/08/25 06:39 Respiratory Rate 16 01/08/25 06:39 Blood Pressure 146/81 H 01/08/25 06:39 Blood Pressure Mean 102 01/08/25 06:39 Blood Pressure Position Sitting 01/08/25 06:39 Pulse Oximetry 94 01/08/25 06:39 Oxygen Delivery Method Room Air 01/08/25 06:39 Vital Signs Temperature 98.3 F 01/08/25 06:39 Pulse Rate 116 H 01/08/25 06:39 Respiratory Rate 16 01/08/25 06:39 Blood Pressure 146/81 H 01/08/25 06:39 Pulse Oximetry 94 01/08/25 06:39 Oxygen Delivery Method Room Air 01/08/25 06:39 Temperature 97.8 F 01/11/25 07:00 Pulse Rate 72 01/11/25 07:00 Respiratory Rate 16 01/11/25 07:00 Blood Pressure 154/88 H 01/11/25 07:00 Pulse Oximetry 97 01/11/25 07:00 Oxygen Delivery Method Room Air 01/11/25 07:00 <Eusebio Garcia MD - Last Filed: 01/14/25 02:17> Initial Vital Signs Temperature 98.3 F 01/08/25 06:39 Temperature Source Temporal Artery Scan 01/08/25 06:39 Pulse Rate 116 H 01/08/25 06:39 Respiratory Rate 16 01/08/25 06:39 Blood Pressure 146/81 H 01/08/25 06:39 Blood Pressure Mean 102 01/08/25 06:39 Blood Pressure Position Sitting 01/08/25 06:39 Pulse Oximetry 94 01/08/25 06:39 Oxygen Delivery Method Room Air 01/08/25 06:39 Vital Signs Temperature 98.3 F 01/08/25 06:39 Pulse Rate 116 H 01/08/25 06:39 Respiratory Rate 16 01/08/25 06:39 Blood Pressure 146/81 H 01/08/25 06:39 Pulse Oximetry 94 01/08/25 06:39 Oxygen Delivery Method Room Air 01/08/25 06:39 Temperature 97.8 F 01/11/25 07:00 Pulse Rate 72 01/11/25 07:00 Respiratory Rate 16 01/11/25 07:00 Blood Pressure 154/88 H 01/11/25 07:00 Pulse Oximetry 97 01/11/25 07:00 Oxygen Delivery Method Room Air 01/11/25 07:00 <Eusebio Millan MD - Last Filed: 01/08/25 11:34> Medications Administered Medications: Discontinued Medications Generic Name Dose Route Start Last Admin Trade Name Veronica PRN Reason Stop Dose Admin Acetaminophen 1,000 mg 01/08/25 11:59 01/11/25 07:51 Acetaminophen 325 Mg Tablet PO 975 mg Q6H PRN Administration Cetirizine HCl 10 mg 01/09/25 09:00 01/11/25 07:50 Cetirizine Hcl 10 Mg Tablet PO 10 mg DAILY BRAIN Administration Sodium Chloride 1,000 mls @ 1,000 mls/hr 01/08/25 09:05 01/08/25 10:40 0.9 % Sodium Chloride 1000 Ml IV 01/08/25 10:04 Infused .Q1H ONE Infusion Lactated Ringer's 1,000 mls @ 75 mls/hr 01/08/25 13:40 01/11/25 07:53 Lactated Ringers 1000 Ml IV Infused .[id number] BRAIN Infusion Methylprednisolone Sodium Succinate 20 mg 01/08/25 11:00 01/08/25 11:12 Methylprednisolone Sod Succ 40 Mg/Ml IVP 01/08/25 11:01 20 mg ONCE ONE Administration Methylprednisolone Sodium Succinate 20 mg 01/08/25 20:00 01/11/25 04:07 Methylprednisolone Sod Succ 40 Mg/Ml IVP 20 mg Q8H BRAIN Administration Ondansetron HCl 4 mg 01/08/25 11:59 01/09/25 08:06 Ondansetron 2 Mg/Ml Inj IVP 4 mg Q4H PRN Administration Nausea Oxybutynin Chloride 10 mg 01/08/25 21:00 01/11/25 07:49 Oxybutynin Chloride 5 Mg Tablet PO 10 mg BID BRAIN Administration Oxycodone HCl 5 mg 01/08/25 11:59 01/09/25 08:06 Oxycodone 5 Mg Tablet PO 5 mg Q4H PRN Administration Pain Sodium Chloride 5 ml 01/08/25 11:59 01/11/25 04:07 Sodium Chloride 0.9 % (Flush) 10 Ml Syringe IVF 5 ml .FLUSH PRN Administration Sodium Chloride 5 ml 01/08/25 21:00 01/11/25 07:52 Sodium Chloride 0.9 % (Flush) 10 Ml Syringe IVF 5 ml BID BRAIN Administration Tamoxifen Citrate 20 mg 01/09/25 09:00 01/11/25 10:11 Tamoxifen Citrate 20 Mg Tablet PO 20 mg DAILY BRAIN Administration Trazodone HCl 50 - 100 mg 01/08/25 13:45 01/09/25 08:15 Trazodone Hcl 50 Mg Tablet PO Not Given HS BRAIN Trazodone HCl 50 - 100 mg 01/08/25 21:00 01/10/25 21:12 Trazodone Hcl 50 Mg Tablet PO 50 mg HS BRAIN Administration <Eusebio Garcia MD - Last Filed: 01/14/25 02:17> Discontinued Medications Generic Name Dose Route Start Last Admin Trade Name Freq PRN Reason Stop Dose Admin Acetaminophen 1,000 mg 01/08/25 11:59 01/11/25 07:51 Acetaminophen 325 Mg Tablet PO 975 mg Q6H PRN Administration Cetirizine HCl 10 mg 01/09/25 09:00 01/11/25 07:50 Cetirizine Hcl 10 Mg Tablet PO 10 mg DAILY BRAIN Administration Sodium Chloride 1,000 mls @ 1,000 mls/hr 01/08/25 09:05 01/08/25 10:40 0.9 % Sodium Chloride 1000 Ml IV 01/08/25 10:04 Infused .Q1H ONE Infusion Lactated Ringer's 1,000 mls @ 75 mls/hr 01/08/25 13:40 01/11/25 07:53 Lactated Ringers 1000 Ml IV Infused .[id number] BRAIN Infusion Methylprednisolone Sodium Succinate 20 mg 01/08/25 11:00 01/08/25 11:12 Methylprednisolone Sod Succ 40 Mg/Ml IVP 01/08/25 11:01 20 mg ONCE ONE Administration Methylprednisolone Sodium Succinate 20 mg 01/08/25 20:00 01/11/25 04:07 Methylprednisolone Sod Succ 40 Mg/Ml IVP 20 mg Q8H BRAIN Administration Ondansetron HCl 4 mg 01/08/25 11:59 01/09/25 08:06 Ondansetron 2 Mg/Ml Inj IVP 4 mg Q4H PRN Administration Nausea Oxybutynin Chloride 10 mg 01/08/25 21:00 01/11/25 07:49 Oxybutynin Chloride 5 Mg Tablet PO 10 mg BID BRAIN Administration Oxycodone HCl 5 mg 01/08/25 11:59 01/09/25 08:06 Oxycodone 5 Mg Tablet PO 5 mg Q4H PRN Administration Pain Sodium Chloride 5 ml 01/08/25 11:59 01/11/25 04:07 Sodium Chloride 0.9 % (Flush) 10 Ml Syringe IVF 5 ml .FLUSH PRN Administration Sodium Chloride 5 ml 01/08/25 21:00 01/11/25 07:52 Sodium Chloride 0.9 % (Flush) 10 Ml Syringe IVF 5 ml BID BRAIN Administration Tamoxifen Citrate 20 mg 01/09/25 09:00 01/11/25 10:11 Tamoxifen Citrate 20 Mg Tablet PO 20 mg DAILY BRAIN Administration Trazodone HCl 50 - 100 mg 01/08/25 13:45 01/09/25 08:15 Trazodone Hcl 50 Mg Tablet PO Not Given HS BRAIN Trazodone HCl 50 - 100 mg 01/08/25 21:00 01/10/25 21:12 Trazodone Hcl 50 Mg Tablet PO 50 mg HS BRAIN Administration <Eusebio Millan MD - Last Filed: 01/08/25 11:34> MDM - Abdominal Pain Lab Data Labs: Lab Results 01/08/25 Range/Units 07:17 WBC 8.67 (4.50-11.00) K/uL RBC 3.92 L (4.00-5.20) m/uL Hgb 11.8 L (12.0-16.0) gm/dL Hct 37.2 (33.0-51.0) % MCV 95 (80-100) fL MCH 30 (26-34) pg MCHC 32 (32-36) gm/dL RDW Coeff of Bree 13.0 (11.5-15.5) % Plt Count 246 (140-440) K/uL Neut % (Auto) 59.6 (42.0-72.0) % Lymph % (Auto) 31.3 (20-44) % Spalding % (Auto) 6.5 (0.0-11.0) % Eos % (Auto) 1.7 (0.0-7.0) % Baso % (Auto) 0.1 (0.0-3.0) % Neut # (Auto) 5.17 (1.7-7.0) K/uL Lymph # (Auto) 2.71 (0.90-2.90) K/uL [place] # (Auto) 0.60 (0.00-0.90) K/UL Eos # (Auto) 0.15 (0.00-0.50) K/uL Baso # (Auto) 0.01 (0.00-0.30) K/uL Abs Immat Gran (auto) 0.07 (0.00-0.30) K/uL Imm/Tot Granulo (auto) 0.8 % Sodium 135 (135-149) mmol/L Potassium 3.8 (3.6-5.1) mmol/L Chloride 100 (96-114) mmol/L Carbon Dioxide 32 (20-32) mmol/L Anion Gap 3 L (7-15) mEq/L BUN 7 (5-24) mg/dL Creatinine 0.7 (0.5-1.5) mg/dL Estimated Creat Clear 93.01 Estimated GFR 107 ml/min Glucose 105 (60-115) mg/dL Calcium 8.4 (8.4-10.6) mg/dL C-Reactive Protein 7.4 H (0.5-1.0) mg/dL <Eusebio Garcia MD - Last Filed: 01/14/25 02:17> Lab Results 01/08/25 Range/Units 07:17 WBC 8.67 (4.50-11.00) K/uL RBC 3.92 L (4.00-5.20) m/uL Hgb 11.8 L (12.0-16.0) gm/dL Hct 37.2 (33.0-51.0) % MCV 95 (80-100) fL MCH 30 (26-34) pg MCHC 32 (32-36) gm/dL RDW Coeff of Bree 13.0 (11.5-15.5) % Plt Count 246 (140-440) K/uL Neut % (Auto) 59.6 (42.0-72.0) % Lymph % (Auto) 31.3 (20-44) % Sp[place]ding % (Auto) 6.5 (0.0-11.0) % Eos % (Auto) 1.7 (0.0-7.0) % Baso % (Auto) 0.1 (0.0-3.0) % Neut # (Auto) 5.17 (1.7-7.0) K/uL Lymph # (Auto) 2.71 (0.90-2.90) K/uL Sp[place]ding # (Auto) 0.60 (0.00-0.90) K/UL Eos # (Auto) 0.15 (0.00-0.50) K/uL Baso # (Auto) 0.01 (0.00-0.30) K/uL Abs Immat Gran (auto) 0.07 (0.00-0.30) K/uL Imm/Tot Granulo (auto) 0.8 % Sodium 135 (135-149) mmol/L Potassium 3.8 (3.6-5.1) mmol/L Chloride 100 (96-114) mmol/L Carbon Dioxide 32 (20-32) mmol/L Anion Gap 3 L (7-15) mEq/L BUN 7 (5-24) mg/dL Creatinine 0.7 (0.5-1.5) mg/dL Estimated Creat Clear 93.01 Estimated GFR 107 ml/min Glucose 105 (60-115) mg/dL Calcium 8.4 (8.4-10.6) mg/dL C-Reactive Protein 7.4 H (0.5-1.0) mg/dL <Eusebio Millan MD - Last Filed: 01/08/25 11:34> Discharge Plan Discharge Clinical Impression: Ulcerative colitis with rectal bleeding, Abdominal pain <Eusebio Garcia MD - Last Filed: 01/14/25 02:17> Patient Disposition: Admitted As Inpatient <Eusebio Garcia MD - Last Filed: 01/14/25 02:17> Condition: Stable <Eusebio Garcia MD - Last Filed: 01/14/25 02:17> Activity Level: No Restrictions <Eusebio Garcia MD - Last Filed: 01/14/25 02:17> No Restrictions <Eusebio Millan MD - Last Filed: 01/08/25 11:34> Discharge Diet: Regular <Eusebio Garcia MD - Last Filed: 01/14/25 02:17> Regular <Eusebio Millan MD - Last Filed: 01/08/25 11:34>
[2025-01-08 07:39] LABS: Blood Urea Nitrogen* 7 mg/dL (5-24); Creatinine* 0.7 mg/dL (0.5-1.5); Est. Creatinine Clearance* 93.01; Estimated Glomerular Filt Rate 107 ml/min
[2025-01-08 07:40] LABS: Anion Gap 3 mEq/L (7-15); Calcium* 8.4 mg/dL (8.4-10.6); Carbon Dioxide* 32 mmol/L (20-32); Glucose* 105 mg/dL (60-115)
--- NOTE | 2025-01-08 11:58 | P.IMHP_ITS ---
Assessment and Plan Assessment and plan (1) Ulcerative colitis with rectal bleeding: Problem comment: CT shows wall thickening and inflammation involving the distal descending colon, sigmoid colon and rectum consistent with proctocolitis Continue methylprednisolone 20 mg IV q.8 hours times 3-5 days, monitoring for new or worsening symptoms LR IVF 75 mL for now Low-fiber diet as tolerated Pain and nausea management as needed Avoid Imodium and dicyclomine during flare per AGA guidelines No antibiotics recommended at this time May need to consider transfer for further management if unresolved or new or worsening symptoms. Cyclosporin and infliximab not available at this facility Dr. Polanco, GICindy (clinic [phone]) Status: Acute (2) Ulcerative colitis: Problem comment: Currently on entyvio, awaiting prior authorization Cindy Galicia Dr, managing Status: Chronic (3) Umbilical hernia: Problem comment: CT shows Small fat containing umbilical hernia which is larger than it was July 12, 2021 Outpatient follow-up Status: Acute Plan IV methylprednisolone, low-fiber diet. Total Time Spent Total Time Spent: Today I spent 75 minutes seeing the patient, reviewing Expanse and EPIC notes/diagnostics, discussing the care plan with our care time that includes social work, PT/OT, pharmacy, RT, nursing home and documenting my impressions and plan in the medical record. Hospitalist- H&P: HPI History of Present Illness Date Seen: 01/08/25 Chief complaint: abdominal pain, cramping Narrative: Idania Galeana is a 49 year old female past medical history significant for ulcerative colitis, dyslipidemia, insomnia, history of malignant neoplasm of left breast, malignant melanoma, basal cell carcinoma is admitted to the medical floor from the ED for further management ulcerative colitis flare failed outpatient therapy. Patient is seen sitting up in bed. 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 Reports being diagnosed with ulcerative colitis approximately 8 years ago. Has been treated with Entyvio which has not been successful so has been working with her PCP to get a prior authorization for Gema. Has also tried dietary changes after meeting with nutrition. Last saw her GI, Dr. Polanco, in November to discuss poor control. At that time he started her on prednisone which she had been tapering. She reports increasingly not feeling well beginning December 25. She was seen in the ED on December 29 and her prednisone was increased again. Last night, she reports bloating and nausea. She has not vomited. She reports waves of abdominal pain lasting seconds to minutes. Anything she eats or drinks she passes. She is currently having 15+ bowel movements daily, currently clear with evidence of blood. ED provider discussed with her GI provider, recommending local hospitalization with IV methylprednisolone management for 3-5 days. If this is not helpful, may need to consider infliximab or cyclosporin, and consider transfer if necessary. No role for antibiotics at this point. Nonsmoker. Has not had alcohol intake for quite some time. PCP is Dr. Abernathy. Review of Systems Narrative: REVIEW OF SYSTEMS: Complete review of systems performed and negative unless otherwise stated in HPI or below. Medical Decision Making Medical Decision Making Code Status: Full Has patient completed a Health Care Directive: No [facility] Medical History (Updated 01/08/25 @ 14:05 by Simin Smith PA-C) Umbilical hernia ?K42.9 - Umbilical hernia without obstruction or gangrene (ICD-10) Neck pain ?M54.2 - Cervicalgia (ICD-10) Lumbar back pain with radiculopathy affecting left lower extremity ?M54.16 - Radiculopathy, lumbar region (ICD-10) Visit for review of DEXA scan (02/2022) ?Z71.2 - Person consulting for explanation of examination or test findings (ICD-10) Ulcerative colitis (2017) ?K51.90 - Ulcerative colitis, unspecified, without complications (ICD-10) Malignant neoplasm of left breast (2020) ?C50.912 - Malignant neoplasm of unspecified site of left female breast (ICD- 10) Malignant melanoma (2008) ?C43.9 - Malignant melanoma of skin, unspecified (ICD-10) Hypertension ?I10 - Essential (primary) hypertension (ICD-10) History of Clostridioides difficile infection (2017) ?Z86.19 - Personal history of other infectious and parasitic diseases (ICD- 10) Chronic headache disorder ?R51.9 - Headache, unspecified (ICD-10) ?G89.29 - Other chronic pain (ICD-10) Chemotherapy-induced diarrhea ?K52.1 - Toxic gastroenteritis and colitis (ICD-10) ?T45.1X5A - Adverse effect of antineoplastic and immunosuppressive drugs, initial encounter (ICD-10) Hot flashes ?R23.2 - Flushing (ICD-10) Surgical History History of total hysterectomy with bilateral salpingo-oophorectomy (BSO) (05/2022) ?Z90.710 - Acquired absence of both cervix and uterus (ICD-10) ?Z90.722 - Acquired absence of ovaries, bilateral (ICD-10) ?Z90.79 - Acquired absence of other genital organ(s) (ICD-10) History of tonsillectomy (1986) ?Z90.89 - Acquired absence of other organs (ICD-10) History of removal of cyst ?Z98.890 - Other specified postprocedural states (ICD-10) History of lumpectomy of left breast (05/10/21) ?Z98.890 - Other specified postprocedural states (ICD-10) History of laparoscopic cholecystectomy (07/12/16) ?Z90.49 - Acquired absence of other specified parts of digestive tract (ICD- 10) History of colonoscopy (2011) ?Z98.890 - Other specified postprocedural states (ICD-10) Family History Brother Basal cell carcinoma Maternal Grandfather Prostate cancer Social History Narrative: 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, 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[employer], no kids, has dog Exercises 5 to 6 times per week- run/ walk, elliptical, dog walking, quarter horse Obi Non-smoker- quit 2013, year 5/day rare alcohol use What is your current living situation?: I presently have a place to live Problems where you live: no known problems Problems where you live details: NA In the past 12 months, utilities in danger of being shut off: no In past 12 months, lack of transportation kept you from medical appts, meetings, work, or getting things needed for daily living: no In the past 12 mos, have been you worried that your food would run out before you had money to buy more?: never true In the past 12 mos, the food you bought just didn't last and you didn't have money to buy more?: never true Highest level of school completed/degree received: Associate degree: occupational, technical, vocational program Smoking Status: Never smoker Second hand tobacco smoke exposure: No How often do you have a drink containing alcohol: never How often do you have six or more drinks on one occasion: Never AUDIT-C Alcohol total score: 0 Non-prescribed substance use: denies use Caffeine: Yes (pepsi) How often does anyone, including family, friends and others, physically hurt you : never How often does anyone, including family, friends and others, insult or talk down to you: never How often does anyone, including family, friends and others, threaten you with harm: never How often does anyone, including family, friends and others, scream or curse at you: never service: No Meds Home Medications and Allergies Home Medications ?Medication ?Instructions ?Recorded ?Confirmed ?Type multivitamin 1 tab PO QAM 02/28/22 History vedolizumab 300 mg intravenous 300 mg IV Q8W 05/29/22 01/07/25 History solution (Entyvio) hyoscyamine sulfate 0.125 mg 0.125 mg PO Q4H PRN 07/1401/08/25 History sublingual tablet calcium carbonate (Calcium 600) 1,200 mg PO DAILY 11/1401/08/25 History oxybutynin chloride 5 mg tablet 10 mg (2 x 5 mg) PO BI D #180 tabs 07/01/24 01/08/25 Rx prednisone 20 mg tablet 60 mg (3 x 20 mg) PO DAILY 1 4 days 12/29/24 01/08/25 Rx #42 tabs ondansetron 4 mg disintegrating 4 mg PO Q6H PRN nausea and 01/07/25 01/08/25 Rx tablet vomiting #30 tabs dicyclomine 20 mg tablet 20 mg PO QID PRN 01/08/25 History tamoxifen 20 mg tablet 20 mg PO DAILY 01/08/2512/23 History trazodone 50 mg tablet 50 - 100 mg PO QHS 01/08/25 01/08/25 History Allergies Allergy/AdvReac Type Severity Reaction Status Date / Time No Known Allergies Allergy Unknown Verified 01/08/25 06:44 Exam Narrative: Exam Narrative: PHYSICAL EXAM General: Pleasant, conversant, NAD HEENT: Normocephalic, atraumatic, sclera white, EOMI, oral mucosa moist Cardiovascular: RRR, S1S2. No pitting edema Pulmonary: CTA bilaterally without rhonchi, rales, expiratory wheezes. No dyspnea on room air Abdominal: Mildly distended, soft, active bowel sounds throughout, generalized tenderness without guarding Neurological: Alert, answering questions appropriately, cranial nerves intact, no focal findings Extremities: No gross joint deformity or swelling. AROMI. Neurovascularly intact Skin: Warm, dry. Const: Vital Signs, click to edit/add: Vital Signs - 24 hr 01/08/25 06:39 01/08/25 07:34 01/08/25 07:49 Temperature 98.3 F Pulse Rate [Pulse Oximeter] 116 H 98 Respiratory Rate 16 Blood Pressure [Le ft Upper Arm] 146/81 H 129/78 Pulse Oximetry 94 [facility] 01/08/25 08:42 01/08/25 09:38 01/08/25 09:42 Temperature Pulse Rate [Pulse Oximeter] 85 91 Respiratory Rate Blood Pressure [Le ft Upper Arm] Pulse Oximetry 86 L 87 L 92 Oxygen Delivery Pa thod Room Air Room Air Room Air 01/08/25 10:32 Temperature Pulse Rate [Pulse Oximeter] 92 Respiratory Rate 16 Blood Pressure [Le ft Upper Arm] 116/69 Pulse Oximetry 90 [facility] Hospitalist - H&P: Result Labs Labs: Short CBC 01/08/25 Range/Units 07:17 WBC 8.67 (4.50-11.00) K/uL Hgb 11.8 L (12.0-16.0) gm/dL Hct 37.2 (33.0-51.0) % Plt Count 246 (140-440) K/uL [facility] 01/08/25 07:17 Sodium 135 Potassium 3.8 Chloride 100 Carbon Dioxide 32 BUN 7 Creatinine 0.7 Glucose [address] scan - abdomen: Attestation: I have reviewed the pertinent imaging results. Radiologist's impression: LUNG BASES: The lung bases as visualized appear normal.The heart size is normal at the lung bases. LIVER/BILIARY SYSTEM:Normal-sized liver. No focal mass. Status post cholecystectomy. Normal caliber of the biliary ductal system given reservoir phenomena from prior cholecystectomy. Similar appearance to 2021.The gallbladder is surgically absent. ADRENALS: Normal KIDNEYS, URETERS and BLADDER:The kidneys appear normal. No visible mass, calculus or hydronephrosis. The ureters and bladder as visualized appear normal. SPLEEN:Benign-appearing low-density splenic lesion unchanged. Normal-sized spleen. PANCREAS: Appears normal. RETROPERITONEUM and MESENTERY: There is no mass, adenopathy or aortic aneurysm. GASTROINTESTINAL SYSTEM: Wall thickening and inflammation involving the distal descending colon, sigmoid colon and rectum consistent with proctocolitis. Otherwise unremarkable. PELVIS: No mass, adenopathy or free fluid. OSSEOUS STRUCTURES and ABDOMINAL WALL: There is an age-appropriate appearance of the osseous structures.Small fat containing umbilical hernia which is larger than it was July 12, 2021. OTHER: No free fluid or free air. IMPRESSION: 1. There is wall thickening and inflammation involving the distal descending colon, sigmoid colon and rectum consistent with proctocolitis. GI system otherwise unremarkable. No intramural air, free air or collection. 2. Other nonacute appearing findings as above. Please review the comments.
[2025-01-08 15:36] LABS: Hemoglobin* 12.1 gm/dL (12.0-16.0)
[2025-01-08 16:22] LABS: C.Difficile Negative (Negative); CDIFFEPI 027 PRESUMPTIVE NEGATIVE (Negative)
[2025-01-08] MEDS: LACTATED RINGERS 1000 ML 1,000 ML 75 ML IV (16:28)
--- NOTE | 2025-01-08 18:51 | PC.NURSE ---
End of shift report 0700 to 0 Patient has been very pleasant and cooperative with treatment through out the shift. She was admitted with abdominal pain and a history of loose stools dating March 2024 to date. She reports bloody, loose stools up to 15 times per day with abdominal pain, on and off nausea, but no vomiting. Abdomen is soft, non-tender, with normoactive sounds in all quadrants. Patient stated pain of 5/10 upon arrival, but has improved through the afternoon to a 3/10. Currently using an Aqua K-pad for abdominal discomfort. She is on continuos LR, 75ml/hr. Patient had a stool sample that looked creamy, pink, and loose. Sample was sent to lab and came back negative for C.Diff. Patient is on a low fiber diet. Diet consult was requested. Patient is on continuous telemetry. Heart sounds are regular and normal. Lung sounds are clear bilaterally through out. Moves independently. Patient has a limb restriction on her Left arm due to a past lumpectomy. Patient has a history of melanoma, and currently has a 10 stitches incision on her right breast were some melanoma was removed on 12/22/2024. Patient asked if it would be possible to get stitches off while on the hospital, but Doctor deemed more appropriate to have her make an appointment with her physician when she is discharged.
[2025-01-08] MEDS: TRAZODONE HCL 50 MG TABLET PO (21:11)
[2025-01-09] VITALS (7 sets, daily range): BP systolic 115–137; BP diastolic 56–90; PULSE 59–86; RESP 16–18; TEMP 36.6–37.1; O2SAT 92–99
[2025-01-09] MEDS: ACETAMINOPHEN 325 MG TABLET 1000 MG PO ×2 (00:36→19:36)
[2025-01-09] MEDS: LACTATED RINGERS 1000 ML 1,000 ML 75 ML IV ×2 (03:39→16:44)
[2025-01-09] MEDS: ONDANSETRON 2 MG/ML inj 4 MG IVP ×2 (04:04→08:06)
[2025-01-09 06:20] LABS: Hematocrit 36.4 % (33.0-51.0); Hemoglobin* 11.9 gm/dL (12.0-16.0); Mean Corpuscular HGB Conc 33 gm/dL (32-36); Mean Corpuscular Hemoglobin 31 pg (26-34); Mean Corpuscular Volume 93 fL (80-100); Red Blood Count 3.90 m/uL (4.00-5.20); White Blood Count* 9.64 K/uL (4.50-11.00)
[2025-01-09 06:22] LABS: Slide Review Reflex No
[2025-01-09 06:47] LABS: Chloride* 102 mmol/L (96-114); Potassium* 3.9 mmol/L (3.6-5.1); Sodium* 134 mmol/L (135-149)
[2025-01-09 06:51] LABS: Anion Gap 5 mEq/L (7-15); Blood Urea Nitrogen* 9 mg/dL (5-24); Calcium* 8.6 mg/dL (8.4-10.6); Carbon Dioxide* 27 mmol/L (20-32); Creatinine* 0.5 mg/dL (0.5-1.5); Est. Creatinine Clearance* 130.21; Estimated Glomerular Filt Rate 116 ml/min; Glucose* 137 mg/dL (60-115)
--- NOTE | 2025-01-09 07:01 | PC.NURSE ---
The patient was up throughout the night. Tolerable cramping stomach pain throughout the night until about 400 when the patient reported severe abdominal cramping and was up to the BR about 7 times to pass stool. The patient states that the frequency in the AM is her normal, although she stated that her pain was the worse that it has ever been. The patient also had 2 episodes of emesis during this time. PRN pain medication and antiemetic were given. The patient now reports that she is feeling better. Up ad tor and her call light is within reach. Jazmín MARTIN BSN
[2025-01-09] MEDS: SODIUM CHLORIDE 0.9 % (FLUSH) 10 ML SYRINGE 5 ML IVF ×2 (08:07→19:39)
[2025-01-09] MEDS: TAMOXIFEN CITRATE 20 MG PO (08:08)
[2025-01-09] MEDS: CETIRIZINE HCL 10 MG TABLET PO (08:08)
--- NOTE | 2025-01-09 09:49 | NUTR.NU ---
Nutrition screen related to [facility] nursing referral for education. Admit diagnosis for ulcerative colitis with rectal bleeding. Diet low fiber. No intakes at this time. Formed stool reported this morning. Diagnosis history includes ulcerative colitis for 8 years. Followed by GI specialist. Patient seen in clinic outpatient on 10/16/24. No additional interventions at this time. Monitor diet tolerance and intake, follow up prn.
--- NOTE | 2025-01-09 14:27 | PM.IMPN1 ---
Assessment and Plan Assessment and plan (1) Ulcerative colitis with rectal bleeding: Problem comment: CT shows wall thickening and inflammation involving the distal descending colon, sigmoid colon and rectum consistent with proctocolitis Continue methylprednisolone 20 mg IV q.8 hours times 3-5 days, monitoring for new or worsening symptoms LR IVF 75 mL for now Low-fiber diet as tolerated Pain and nausea management as needed Avoid Imodium and dicyclomine during flare per AGA guidelines No antibiotics recommended at this time May need to consider transfer for further management if unresolved or new or worsening symptoms. Cyclosporin and infliximab not available at this facility Dr. Polanco, Cindy RODAS (clinic [phone]) 01/09 has completed 3 doses of IV methylprednisolone, GI recommending q.8 hour dosing x 3-5 days pending clinical response. Stools are starting to form Status: Acute (2) Ulcerative colitis: Problem comment: Currently on entyvio, awaiting prior authorization [employer] dicyclomine and Imodium during flare Cindy Sharpe, managing Status: Chronic (3) Umbilical hernia: Problem comment: CT shows Small fat containing umbilical hernia which is larger than it was July 12, 2021 Outpatient follow-up Status: Acute Plan IV methylprednisolone, low-fiber diet. Total Time Spent Total Time Spent: Today I spent 45 minutes seeing the patient, reviewing Expanse and EPIC notes/diagnostics, discussing the care plan with our care time that includes social work, PT/OT, pharmacy, RT, halfway and documenting my impressions and plan in the medical record. Subjective Date Seen: 01/09/25 Interval history: Patient is seen sitting up in bed this morning. Reports stools have started to form. Along with this comes increased abdominal cramping and discomfort. She also reports some nausea and 2 episodes of vomiting earlier today. Does tell me that this is normal for her as she is coming out of a flare. She remains afebrile. Denies headache or dizziness. No chest pain or shortness of breath. Has completed 1st 3 doses IV methylprednisolone. GI recommending 3-5 days, pending clinical improvement. Continues on low-fiber diet. Exam Narrative: Exam Narrative: PHYSICAL EXAM General: Pleasant, conversant, NAD Cardiovascular: RRR, S1S2. No pitting edema Pulmonary: CTA bilaterally without rhonchi, rales, expiratory wheezes. No dyspnea on room air Abdominal: Less distended, soft, active bowel sounds throughout, generalized tenderness without guarding Neurological: Alert, answering questions appropriately, cranial nerves intact, no focal findings Extremities: No gross joint deformity or swelling. AROMI. Neurovascularly intact Skin: Warm, dry. Const: Vital Signs, click to edit/add: Vital Signs - 24 hr 01/08/25 15:00 01/08/25 15:00 01/08/25 19:00 Temperature 97.6 F Pulse Rate 73 Pulse Rate [Pulse Oximeter] 70 71 Respiratory Rate 18 16 Blood Pressure [Ri ght Arm] 137/82 Pulse Oximetry 96 Oxygen Delivery Me thod Room Air 01/08/25 23:00 01/08/25 23:00 01/09/25 03:00 Temperature 97.6 F 97.8 F Pulse Rate 71 Pulse Rate [Pulse Oximeter] 71 77 Respiratory Rate 16 16 Blood Pressure [Ri ght Arm] 127/94 H 119/78 Pulse Oximetry 97 99 Oxygen Delivery Me thod 01/09/25 07:00 01/09/25 07:30 01/09/25 11:00 Temperature 98.5 F 98.6 F Pulse Rate 59 L Pulse Rate [Pulse Oximeter] 63 82 Respiratory Rate 18 16 Blood Pressure [Ri ght Arm] 137/90 H 135/75 Pulse Oximetry 97 93 Oxygen Delivery Me thod Room Air Room Air Labs Labs: Laboratory Results - last 24 hr 01/08/25 01/08/25 01/09/25 14:40 15:22 05:49 WBC 9.64 RBC 3.90 L Hgb 12.1 11.9 L Hct 36.4 MCV 93 MCH 31 MCHC 33 Plt Count 283 Sodium 134 L Potassium 3.9 Chloride 102 Carbon Dioxide 27 Anion Gap 5 L BUN 9 Creatinine 0.5 Estimated Creat Clear 130.21 Estimated GFR 116 Glucose 137 H Calcium 8.6 C-Reactive Protein 6.7 H Stl C. diff Tox B Gene Negative Stl C. diff [id number] PRESUMPTIVE NEGATIVE
--- NOTE | 2025-01-09 18:43 | PC.NURSE ---
Pt is doing well today. VSS. Afebrile. Pt was treated for nausea and abdominal pain with PRN medications at 0800, since then, pt has denied pain and nausea the entire shift. Pt is tolerating a therapeutic diet and drinking an adequate amount of fluids. Pt is ambulating independently. Pt reports her stools are becoming more formed and cramping with bowel movements has significantly decreased. Pt is comforted by the aqua K pad on her abdomen. She is resting well in bed at this time.
[2025-01-09] MEDS: TRAZODONE HCL 50 MG TABLET PO (21:06)
[2025-01-10] VITALS (7 sets, daily range): BP systolic 131–144; BP diastolic 80–89; PULSE 69–96; RESP 16; TEMP 36.4–37.1; O2SAT 95–98
[2025-01-10] MEDS: LACTATED RINGERS 1000 ML 1,000 ML 75 ML IV (05:27)
[2025-01-10 06:17] LABS: Hematocrit 36.7 % (33.0-51.0); Hemoglobin* 11.7 gm/dL (12.0-16.0); Mean Corpuscular HGB Conc 32 gm/dL (32-36); Mean Corpuscular Hemoglobin 30 pg (26-34); Mean Corpuscular Volume 95 fL (80-100); Red Blood Count 3.88 m/uL (4.00-5.20); White Blood Count* 6.93 K/uL (4.50-11.00)
--- NOTE | 2025-01-10 06:23 | PC.NURSE ---
End of shift [id number]: Pt AxOx4, cooperative, and pleasant with cares. Remaining afebrile. Pt denies nausea during shift. Pt reported pain to the abdomen at the beginning of shift, managed with PRN Tylenol. Relief reported without any further pain the remainder of the shift. Ambulating room independently, no safety concerns. Pt reported frequent stools are appearing brown and more formed. Pt reported able to pass stools without having pain. Pt tolerating therapeutic diet/fluids well. Pt appears resting in bed with call light in reach.
[2025-01-10 06:32] LABS: Slide Review Reflex No
[2025-01-10 06:36] LABS: Chloride* 102 mmol/L (96-114); Potassium* 3.9 mmol/L (3.6-5.1); Sodium* 135 mmol/L (135-149)
[2025-01-10 06:39] LABS: Anion Gap 4 mEq/L (7-15); Blood Urea Nitrogen* 13 mg/dL (5-24); Calcium* 8.5 mg/dL (8.4-10.6); Carbon Dioxide* 29 mmol/L (20-32); Creatinine* 0.5 mg/dL (0.5-1.5); Est. Creatinine Clearance* 130.21; Estimated Glomerular Filt Rate 116 ml/min; Glucose* 124 mg/dL (60-115)
[2025-01-10] MEDS: CETIRIZINE HCL 10 MG TABLET PO (09:27)
[2025-01-10] MEDS: SODIUM CHLORIDE 0.9 % (FLUSH) 10 ML SYRINGE 5 ML IVF ×2 (09:27→20:04)
[2025-01-10] MEDS: TAMOXIFEN CITRATE 20 MG PO (10:49)
--- NOTE | 2025-01-10 14:38 | PC.NURSE ---
Pt is doing well today. Pleasant to care for. VSS. Pt reports brief, intermittent abdominal pain before and during bowel movements, pt reports having soft, formed stools. Pt has not needed pain medication today. Pt denies nausea. Tolerating therapeutic diet. Ambulating independently. Resting well at this time. is at bedside.
--- NOTE | 2025-01-10 15:07 | PM.IMPN1 ---
Assessment and Plan Assessment and plan (1) Ulcerative colitis with rectal bleeding: Problem comment: CT shows wall thickening and inflammation involving the distal descending colon, sigmoid colon and rectum consistent with proctocolitis Continue methylprednisolone 20 mg IV q.8 hours times 3-5 days, monitoring for new or worsening symptoms LR IVF 75 mL for now Low-fiber diet as tolerated Pain and nausea management as needed Avoid Imodium and dicyclomine during flare per AGA guidelines No antibiotics recommended at this time May need to consider transfer for further management if unresolved or new or worsening symptoms. Cyclosporin and infliximab not available at this facility Dr. Polanco, Cindy RODAS (clinic [phone]) 01/09 has completed 3 doses of IV methylprednisolone, GI recommending q.8 hour dosing x 3-5 days pending clinical response. Stools are starting to form 01/10 Stools larger, more formed, less bloody. She's had about 30 hours of methylprednisolone. Continue today yet and reassess tomorrow. May need 1-3 days yet of IV steroids. Status: Acute (2) Ulcerative colitis: Problem comment: Currently on entyvio, awaiting prior authorization [employer] dicyclomine and Imodium during flare Cindy Sharpe, managing Status: Chronic (3) Umbilical hernia: Problem comment: CT shows Small fat containing umbilical hernia which is larger than it was July 12, 2021 Outpatient follow-up Status: Acute Plan IV methylprednisolone, low-fiber diet. Total Time Spent Total Time Spent: Today I spent 45 minutes seeing the patient, reviewing Expanse and EPIC notes/diagnostics, discussing the care plan with our care time that includes social work, PT/OT, pharmacy, RT, penitentiary and documenting my impressions and plan in the medical record. Subjective Time Seen by Provider: 10:40 Date Seen: 01/10/25 Interval history: Idania is feeling better overall, but notes times when she feels good and occasional episodes of cramping with BMs. She notes a particularly large BM earlier today associated with cramping. It was larger than any she's had in months. Small amount of blood in the stool; she notes BMs are less bloody overall. Appetite is good. Denies nausea or vomiting. Exam Narrative: Exam Narrative: General: No acute distress. Awake, alert, oriented x3. No pallor. No jaundice. Oropharynx: Clear. Mucous membranes moist. Cardiovascular: Regular rate and rhythm. No murmurs, gallops, or rubs. Respiratory: Clear to auscultation bilaterally. No wheezes or crackles. Abdomen: Bowel sounds present. Soft, nondistended, mild generalized tenderness without rebound tenderness or guarding. Extremities: No lower extremity edema. Const: Vital Signs, click to edit/add: Vital Signs - 24 hr 01/09/25 19:00 01/09/25 22:24 01/10/25 03:00 Temperature 98.7 F 98.4 F 97.6 F Pulse Rate [Pulse Oximeter] 74 65 96 Respiratory Rate 16 16 16 Blood Pressure [Ri ght Arm] 134/77 115/56 L 134/89 Pulse Oximetry 99 92 96 Oxygen Delivery Me thod Room Air Room Air Room Air 01/10/25 07:00 01/10/25 09:30 01/10/25 11:00 Temperature 98.6 F 98.7 F Pulse Rate [Pulse Oximeter] 84 84 84 Respiratory Rate 16 16 16 Blood Pressure [Ri ght Arm] 140/83 H 144/87 H Pulse Oximetry 98 97 Oxygen Delivery Me thod Room Air Room Air Labs Labs: Laboratory Results - last 24 hr 01/10/25 05:53 WBC 6.93 RBC 3.88 L Hgb 11.7 L Hct 36.7 MCV 95 MCH 30 MCHC 32 Plt Count 284 Sodium 135 Potassium 3.9 Chloride 102 Carbon Dioxide 29 Anion Gap 4 L BUN 13 Creatinine 0.5 Estimated Creat Clear 130.21 Estimated GFR 116 Glucose 124 H Calcium 8.5
[2025-01-10] MEDS: TRAZODONE HCL 50 MG TABLET PO (21:12)
[2025-01-10] MEDS: ACETAMINOPHEN 325 MG TABLET 1000 MG PO (21:46)
[2025-01-11 04:05] VITALS: BP 147/86; PULSE 70; RESP 18; TEMP 36.9; O2SAT 99
[2025-01-11] MEDS: SODIUM CHLORIDE 0.9 % (FLUSH) 10 ML SYRINGE 5 ML IVF ×2 (04:07→07:52)
[2025-01-11 06:24] LABS: Hematocrit 38.4 % (33.0-51.0); Hemoglobin* 12.3 gm/dL (12.0-16.0); Mean Corpuscular HGB Conc 32 gm/dL (32-36); Mean Corpuscular Hemoglobin 30 pg (26-34); Mean Corpuscular Volume 95 fL (80-100); Red Blood Count 4.05 m/uL (4.00-5.20); White Blood Count* 8.78 K/uL (4.50-11.00)
[2025-01-11 06:29] LABS: Slide Review Reflex No
[2025-01-11 06:33] LABS: Chloride* 101 mmol/L (96-114); Potassium* 3.9 mmol/L (3.6-5.1); Sodium* 134 mmol/L (135-149)
[2025-01-11 06:36] LABS: Anion Gap 2 mEq/L (7-15); Blood Urea Nitrogen* 12 mg/dL (5-24); Calcium* 8.5 mg/dL (8.4-10.6); Carbon Dioxide* 31 mmol/L (20-32); Creatinine* 0.5 mg/dL (0.5-1.5); Est. Creatinine Clearance* 130.21; Estimated Glomerular Filt Rate 116 ml/min; Glucose* 127 mg/dL (60-115)
--- NOTE | 2025-01-11 06:42 | PC.NURSE ---
Pt is alert and oriented x3. Afebrile. Pt reports 5/10 abdomen pain, managed with PRN medication. Pt reports her stools continue to have some blood in them but reports the blood has significantly decreased. Pt is up ad tor in room, voiding, and tolerating a therapeutic diet. ?
[2025-01-11 07:00] VITALS: BP 154/88; PULSE 70; PULSE 72; RESP 16; RESP 18; TEMP 36.6; O2SAT 97
[2025-01-11] MEDS: CETIRIZINE HCL 10 MG TABLET PO (07:50)
[2025-01-11] MEDS: ACETAMINOPHEN 325 MG TABLET 1000 MG PO (07:51)
--- NOTE | 2025-01-11 08:57 | PM.DS1 ---
DS: Providers Provider Time Seen by Provider: 08:08 Date Seen: 01/11/25 Date of admission: 01/08/25 11:59 Primary care physician: Noemi Abernathy MD Admitting Clinician: Herminia Lewis MD Attending Physician on discharge: Aspen Estrada MD Date of Discharge: 01/11/25 DS: Diagnosis Discharge Diagnosis (1) Ulcerative colitis with rectal bleeding: Status: Acute Problem details: CT shows wall thickening and inflammation involving the distal descending colon, sigmoid colon and rectum consistent with proctocolitis Continue methylprednisolone 20 mg IV q.8 hours times 3-5 days, monitoring for new or worsening symptoms LR IVF 75 mL for now Low-fiber diet as tolerated Pain and nausea management as needed Avoid Imodium and dicyclomine during flare per AGA guidelines No antibiotics recommended at this time May need to consider transfer for further management if unresolved or new or worsening symptoms. Cyclosporin and infliximab not available at this facility [facility] (clinic [phone]) 01/09 has completed 3 doses of IV methylprednisolone, GI recommending q.8 hour dosing x 3-5 days pending clinical response. Stools are starting to form 01/10 Stools larger, more formed, less bloody. She's had about 30 hours of methylprednisolone. Continue today yet and reassess tomorrow. May need 1-3 days yet of IV steroids. 01/11 Many formed stools now, minimally bloody, +cramping with BMs yet. Desires homegoing on oral steroids today. (2) Ulcerative colitis: Status: Chronic Problem details: Currently on entyvio, awaiting prior authorization [employer] dicyclomine and Imodium during flare Cindy Sharpe, managing (3) Umbilical hernia: Status: Acute Problem details: CT shows Small fat containing umbilical hernia which is larger than it was July 12, 2021 Outpatient follow-up DS: Summary Hospital Course Hospital Course: Idania Galeana is a 49 year old female past medical history significant for ulcerative colitis, dyslipidemia, insomnia, history of malignant neoplasm of left breast, malignant melanoma, basal cell carcinoma is admitted to the medical floor from the ED for further management ulcerative colitis flare failed outpatient therapy. Patient is seen sitting up in bed. 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 Reports being diagnosed with ulcerative colitis approximately 8 years ago. Has been treated with Entyvio which has not been successful so has been working with her PCP to get a prior authorization for Sarahi. Has also tried dietary changes after meeting with nutrition. Last saw her GI, Dr. Polanco, in November to discuss poor control. At that time he started her on prednisone which she had been tapering. She reports increasingly not feeling well beginning December 25. She was seen in the ED on December 29 and her prednisone was increased again. Last night, she reports bloating and nausea. She has not vomited. She reports waves of abdominal pain lasting seconds to minutes. Anything she eats or drinks she passes. She is currently having 15+ bowel movements daily, currently clear with evidence of blood. ED provider discussed with her GI provider, recommending local hospitalization with IV methylprednisolone management for 3-5 days. If this is not helpful, may need to consider infliximab or cyclosporin, and consider transfer if necessary. No role for antibiotics at this point CT abd/pelvis on 12/29/24 noted wall thickening and inflammation involving the distal descending colon, sigmoid colon and rectum consistent with proctocolitis. GI system otherwise unremarkable. No intramural air, free air or collection. Idania has had improvement on IV methylprednisolone, now day 3. Transition to oral prednisone, d/c home. F/u with GI in 1-2 weeks if possible. Also make appointment with PCP for Sun/ to help adjust prednisone and bridge therapy until she can see her GI. Time Spent with Patient Time attestation: Total time spent providing and/or coordinating discharge services: Exam Narrative: Exam Narrative: General: No acute distress. Awake, alert, oriented x3. No pallor. No jaundice. Oropharynx: Clear. Mucous membranes moist. Cardiovascular: Regular rate and rhythm. No murmurs, gallops, or rubs. Respiratory: Clear to auscultation bilaterally. No wheezes or crackles. Abdomen: Bowel sounds present. Soft, nondistended, nontender to palpation. Const: Vital Signs, click to edit/add: Vital Signs - 24 hr 01/10/25 09:30 01/10/25 11:00 01/10/25 15:00 Temperature 98.6 F 98.7 F Pulse Rate [Pulse Oximeter] 84 84 69 Respiratory Rate 16 16 16 Blood Pressure [Ri ght Arm] 140/83 H 144/87 H Pulse Oximetry 98 97 Oxygen Delivery Me thod Room Air Room Air 01/10/25 15:00 01/10/25 20:00 01/10/25 22:15 Temperature 98.3 F 98.4 F Pulse Rate [Pulse Oximeter] 94 85 82 Respiratory Rate 16 16 Blood Pressure [Ri ght Arm] 143/81 H 131/80 Pulse Oximetry 97 95 Oxygen Delivery Me thod Room Air Room Air 01/10/25 22:15 01/11/25 04:05 01/11/25 07:00 Temperature 98.4 F 98.4 F Pulse Rate [Pulse Oximeter] 82 70 70 Respiratory Rate 16 18 18 Blood Pressure [Ri ght Arm] 131/84 147/86 H Pulse Oximetry 98 99 Oxygen Delivery Me thod Room Air Room Air 01/11/25 07:00 Temperature 97.8 F Pulse Rate [Pulse Oximeter] 72 Respiratory Rate 16 Blood Pressure [Ri ght Arm] 154/88 H Pulse Oximetry 97 Oxygen Delivery Me thod Room Air DS: Data Data Completed and Pending Labs on day of discharge: Labs from last 24 hours 01/11/25 06:00 WBC 8.78 RBC 4.05 Hgb 12.3 Hct 38.4 MCV 95 MCH 30 MCHC 32 Plt Count 310 Sodium 134 L Potassium 3.9 Chloride 101 Carbon Dioxide 31 Anion Gap 2 L BUN 12 Creatinine 0.5 Estimated Creat Clear 130.21 Estimated GFR 116 Glucose 127 H Calcium 8.5 Preliminary micro results at discharge 01/08/25 14:40 Stool Culture - Preliminary Stool Discharge Plan Discharge Disposition: Home, Self-Care Date of Admission: 01/08/25 11:59 Attending Provider on Discharge: Aspen Estrada Primary Care Provider: Noemi Abernathy Condition: Stable Anticipated Discharge Date/Time: 01/11/25 09:09 Discharge Medications: New acetaminophen 325 mg Tablet 1,000 mg PO Q6H PRNQty: 100 0RF Continued multivitamin Tablet 1 tab PO QAM oxybutynin chloride 5 mg tablet 10 mg PO BID Qty: 180 3RF Entyvio 300 mg recon soln 300 mg IV Q8W Rx Instructions: administer over 30 mins calcium carbonate [Calcium 600] 600 mg calcium (1,500 mg) tablet 1,200 mg PO DAILY ondansetron 4 mg tablet,disintegrating 4 mg PO Q6H PRN (Reason: nausea and vomiting) Qty: 30 0RF hyoscyamine sulfate 0.125 mg tablet, sublingual 0.125 mg PO Q4H PRN Patient Comments: PLACE 2 TABLETS (0.25 MG) UNDER TONGUE EVERY 4 HOURS NEEDED FOR CRAMPING. trazodone 50 mg tablet 50 - 100 mg PO QHS Rx Instructions: 50-100 mg at bedtime dicyclomine 20 mg tablet 20 mg PO QID PRN tamoxifen 20 mg tablet 20 mg PO DAILY cetirizine 10 mg capsule 10 mg PO DAILY prednisone 20 mg tablet 60 mg PO DAILY 14 Days Qty: 42 0RF Discharge Orders: Discharge Order (Routine); Ordered 01/11/25 Ordered By: Aspen Estrada Additional Instructions: F/u with GI 1-2 weeks or first available Activity Level: No Restrictions Discharge Diet: Regular Follow Up Appointments: Noemi Abernathy MD [Primary Care Provider, Family Practice] Referral Note: Sun or this week Forms: [employer] Rx Info Instructions
[2025-01-11] MEDS: TAMOXIFEN CITRATE 20 MG PO (10:11)
== END 2025-01-11 10:55 | disposition home or self-care (01) | DRG 387 ==
LOC: ED 11:03 → MEDSURG 11:31
PROVIDERS: Family Medicine; Admitting Provider Physician Assistant; Emergency Provider Family Medicine; PCP Family Medicine; Visit Provider Family Medicine
DX: K51.311 Ulcerative (chronic) rectosigmoiditis with rectal bleeding (principal); K42.9 Umbilical hernia without obstruction or gangrene; Z79.52 Long term (current) use of systemic steroids; Z79.620 Long term (current) use of immunosuppressive biologic; I10 Essential (primary) hypertension; Z85.3 Personal history of malignant neoplasm of breast; Z85.820 Personal history of malignant melanoma of skin
CPT/HCPCS: 36415; 80048; 85018; 85025; 85027; 86140; 87045; 87046; 87427; 87493; 99284; 99285; A9270; J2405; J2919; J7030; J7120; S0187

== ENCOUNTER 2025-03-05 08:00 | Outpatient (RCR) | payer OTHER, SELFPAY ==
[2024-12-03 14:22] VITALS: BP 115/77; PULSE 82; RESP 17; TEMP 36.5; O2SAT 99
[2024-12-03] MEDS: VEDOLIZUMAB 300 MG, TUBING SECONDARY 1 EACH in 0.9 % SODIUM CHLORIDE 250 ml 250 ML 510 MG IVPB (14:45)
[2024-12-03] MEDS: 0.9 % SODIUM CHLORIDE 250 ml 250 ML 35 ML IV (14:46)
--- NOTE | 2025-03-02 14:56 | ONC.NURNOTE ---
Diagnosis: Iron Deficiency Anemia
[2025-03-05 08:09] VITALS: BP 122/80; PULSE 91; RESP 16; TEMP 36; O2SAT 97
[2025-03-05] MEDS: IRON DEXTRAN COMPLEX 25 MG in 0.9 % SODIUM CHLORIDE 100 ml 100 ML 402 MG IVPB (08:24)
[2025-03-05 09:03] VITALS: BP 111/72; PULSE 80; RESP 16; TEMP 36.3; O2SAT 95
[2025-03-05] MEDS: IRON DEXTRAN COMPLEX 975 MG in 0.9 % SODIUM CHLORIDE 250 ml 250 ML 270 MG IVPB (09:35)
[2025-03-05 10:35] VITALS: BP 115/54; PULSE 75; RESP 16; TEMP 36.4; O2SAT 97
[2025-03-05 11:15] VITALS: BP 118/74; PULSE 75; RESP 16; TEMP 36.1; O2SAT 98
== END 2025-06-01 23:59 | disposition home or self-care (01) ==
LOC: CCIC 08:00
PROVIDERS: PCP Family Medicine; Referring Provider Family Medicine; Visit Provider Internal Medicine Hematology & Oncology
DX: D50.9 Iron deficiency anemia, unspecified (principal)
CPT/HCPCS: 96365; J1750; J3380; J7050